=== PATIENT | male | born 1955 | race Caucasian/White ===

== ENCOUNTER 2023-03-06 09:57 | Outpatient (REF) | payer MEDICARE, SELFPAY ==
[2023-03-06 12:19] LABS: Anion Gap 13.4; BUN Creatinine Ratio 34.9; Calcium 9.3 mg/dL (8.5-10.1); Chloride 102 mmol/L (98-107); Estimated GFR (African America >60 (>=60); Estimated GFR (Non-African Ame 57 (>=60); Glucose 154 mg/dL (74-106); Potassium 4.4 mmol/L (3.5-5.1); Sodium 138 mmol/L (136-145)
[2023-03-06 12:40] LABS: Estimated Average Glucose 171 mg/dL; Glycohemoglobin A1C 7.6 % (4.5-6.2)
== END 2023-03-06 09:58 ==
LOC: LAB 09:57
PROVIDERS: PCP Family Medicine; Visit Provider Family Medicine
DX: E11.43 Type 2 diabetes mellitus with diabetic autonomic (poly)neuropathy (principal); I50.43 Acute on chronic combined systolic (congestive) and diastolic (congestive) heart failure; I11.0 Hypertensive heart disease with heart failure; R00.1 Bradycardia, unspecified
CPT/HCPCS: 36415; 80048; 83036

== ENCOUNTER 2023-11-13 02:08 | Outpatient (REF) | payer MEDICARE, MEDICAID, SELFPAY ==
[2023-11-13 09:42] LABS: Basophils Percent Auto 0.5 % (0.2-2.0); Eosinophils Absolute Auto 0.3 10^3/uL (0.0-0.7); Eosinophils Percent Auto 5.4 % (0.9-7.0); Hematocrit 34.3 % (42.0-54.0); Hemoglobin 10.5 g/dL (14.0-18.0); Immature Granulocytes Abs Auto 0.02 10^3/uL (0.00-0.03); Immature Granulocytes Pct Auto 0.3 % (0.0-0.5); Lymphocytes Absolute Auto 2.4 10^3/uL (1.2-3.8); Lymphocytes Percent Auto 39.2 % (20.5-60.0); Mean Corpuscular HGB Conc 30.6 g/dL (29.9-35.2); Mean Corpuscular Hemoglobin 27.7 pg (25.9-34.0); Mean Corpuscular Volume 90.5 fL (80.0-94.0); Monocytes Absolute Auto 0.5 10^3/uL (0.3-0.8); Neutrophils Absolute Auto 2.9 10^3/uL (1.4-6.5); Neutrophils Percent Auto 46.6 % (43.0-75.0); Platelet Count 232 10^3/uL (150-450); Red Blood Count 3.79 10^6/uL (4.70-6.10); Red Cell Distribution Width 13.6 % (11.0-15.0); White Blood Count 6.1 10^3/uL (4.0-11.0)
[2023-11-13 09:58] LABS: Estimated Average Glucose 192 mg/dL; Glycohemoglobin A1C 8.3 % (4.5-6.2)
[2023-11-13 10:18] LABS: Chol HDL Ratio 2.5; Cholesterol 145 mg/dL (<=200); Estimated GFR (African America >60 (>=60); Estimated GFR (Non-African Ame >60 (>=60); HDL Cholesterol 59 mg/dL (40-60); LDL Cholesterol Calculated 70.6 mg/dL; Triglycerides 77 mg/dL (<=150); VLDL CHOLESTEROL 15.4 mg/dL
== END 2023-11-13 02:09 | disposition home or self-care (01) ==
LOC: LAB 02:08
PROVIDERS: PCP Family Medicine; Visit Provider Family Medicine
DX: Z51.81 Encounter for therapeutic drug level monitoring (principal)
CPT/HCPCS: 36415; 80061; 82565; 83036; 85025

== ENCOUNTER 2023-11-25 02:20 | Outpatient (REF) | payer MEDICARE, MEDICAID, SELFPAY ==
--- OUTSIDE RECORDS SUMMARY | 2023-11-25 02:26 | XMS_ITS | CCD ---
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 Painter Structural Steel Name Role Phone Bernie Guerra Primary Care Provider JERI LION Admitting Unavailable ROSALIE WILDER Referring Unavailable LEMUEL DIAZ Consulting Unavailable BERNIE GUERRA Primary Care Unavailable SHAWN HEALY Attending Unavailable CHARLENE MEZA Consulting Unavailable JERI LION Consulting Unavailable MIGUEL HINSON Consulting Unavailable Ana Norris Admitting Unavailable Ana Norris Attending Unavailable Bernie Guerra Primary Care Unavailable MD Bernie Guerra Primary Care Provider HENOK Norris Attending Provider [phone] Ana Norris Unavailable HERMILO THORNE Primary Care Physician Sydney Alexander Unavailable Unavailable Chris Ibrahim Unavailable Unavailable FIDE .DR RAE Consulting Unavailable FIDE ., DR RAE Lau Attending Unavailable FIDE .DR RAE Admitting Unavailable DR BERNIE GUERRA Primary Care Unavailable DR MARIBEL PARISH Consulting UnavailDR BERNIE Ken V Consulting Unavailable SHAIKH Maki LIU Consulting Unavailable ABEBE .NAKITA Attending Unavailable ABEBE .NAKITA Admitting Unavailable DR RAE SARMIENTO Consulting Unavailable MATI, DR AKHTAR Primary Care Unavailable WILVER MARTINEZ Consulting Unavailable BERNIE JC Consulting Unavailable SISTER, KEVIN Consulting Unavailable ABEBE .NAKITA Consulting Unavailable DIAB ., CELESTE Consulting Unavailable MATI, DR AKHTAR Consulting Unavailable MATI, DR AKHTAR Primary Care Unavailable MATI, DR AKHTAR Attending Unavailable MATI, DR AKHTAR Admitting Unavailable MATI, DR AKHTAR Consulting Unavailable MATI, DR AKHTAR Primary Care Unavailable MATI, DR AKHTAR Attending Unavailable MATI, DR AKHTAR Admitting Unavailable PAY ., DR CORDERO Attending Unavailable PAY ., DR CORDERO Admitting Unavailable PAY ., DR CORDERO Consulting Unavailable CHARLIE, DR GIBBS Primary Care Unavailable HEIDI, LILIA Consulting Unavailable CARLITOS, JULIAN Consulting Unavailable LUJAN, ERIC Consulting Unavailable CHACONFRANCES LEAVITT Consulting Unavailable MAREN, DR LILIA Valdez Consulting Unavailable FARZANEH ., LOULOU Attending Unavailable FARZANEH ., LOULOU Admitting Unavailable MATI, DR AKHTAR Primary Care Unavailable DARY, UMESH Consulting Unavailable FARZANEH ., LOULOU Consulting Unavailable OMER, SIMA Consulting Unavailable HETERESA, JAJA Consulting Unavailable CHARLIE, DR GIBBS Primary Care Unavailable HOY ., DR BOYD Admitting Unavailable HOY ., DR BOYD Consulting Unavailable HOY ., DR BOYD Attending Unavailable PAY ., DR CORDERO Consulting Unavailable CARLITOS, JULIAN Consulting Unavailable CRUZ, SANDRA Consulting Unavailable NADEEM, SANDRA Consulting Unavailable MAREN, DR LILIA Valdez Consulting Unavailable NADERER, DR CHRISTIE Arteaga Attending Unavailable NADERER, DR CHRISTIE Arteaga Admitting Unavailable MATI, DR AKHTAR Primary Care Unavailable NADERER, DR CHRISTIE Arteaga Consulting Unavailable PAY ., DR CORDERO Consulting Unavailable GRECHNY ., KAYLEE LAU Consulting UnavailSARAH Pinto Consulting Unavailable SHANNON, KIKI Consulting Unavailable AHDOOT, CANDI Consulting Unavailable LUJAN, ERIC Consulting Unavailable FRIDA JACK Consulting Unavailable OROZCO, [place] Consulting Unavailable CHAPO, VALE Consulting Unavailable [place], Claireen M Unavailable Bernie Guerra Attending Unavailable Bernie Guerra Primary Care Unavailable Bernie Guerra Admitting Unavailable Charlie, Bernie Arteaga Primary Care Unavailable Bernie Guerra Attending Unavailable Bernie Guerra Admitting Unavailable Bernie Guerra Primary Care Unavailable Hue Monet Attending Unavailable Hue Monet Admitting Unavailable Bernie Guerra Attending Unavailable Bernie Guerra Primary Care Unavailable Bernie Guerra Admitting Unavailable Bernie Guerra Primary Care Unavailable Mohinder Orozco Attending Unavailable Mohinder Orozco Admitting Unavailable Charlie, Bernie Arteaga Primary Care Unavailable Orozco, Mohinder Attending Unavailable Orozco, Mohinder Admitting Unavailable Charlie, Mario Primary Care Unavailable Fender, Reshma Attending Unavailable Fender, Reshma Admitting Unavailable Charlie, Mario Attending Unavailable Charlie, Mario Primary Care Unavailable Monet, Hue Mcbride Attending Unavailable MonetHue diallo Admitting Unavailable Charlie, Mario Primary Care Unavailable Charlie, Mario Attending Unavailable Charlie, Mario Primary Care Unavailable Charlie, Mario Attending Unavailable Charlie, Mario Primary Care Unavailable Charlie, Mario Primary Care Unavailable Charlie, Mario Attending Unavailable Wills, Kamran Attending Unavailable Wills, Kamran Admitting Unavailable Charlie, Mario Primary Care Unavailable Charlie, Bernie Arteaga Primary Care Unavailable Rajabbik, Mhd Hashem Attending Unavailable Rajabbik, Mhd Hashem Admitting Unavailable Charlie, Bernie Arteaga Primary Care Unavailable Rajabbik, Mhd Hashem Attending Unavailable Rajabbik, Mhd Hashem Admitting Unavailable Mati, Dr. Hermilo Greco [facility] Unavaila ble Martina, Dr. Geovani Posada Attending Unavailab le Mati, Dr. Hermilo Greco [facility] Unavaila ble Mack, Dr. Geovani Posada Attending Unavailab le Martina, Dr. Geovani Posada Referring Unavailab le [place], Dr. Hermilo Greco [facility] Unavaila ble Mack, Dr. Geovani Posada Admitting Unavailab le Mack, Dr. Geovani Posada Attending Unavailab le Mati Hermilo LEMONS [facility] Provider Hermilo Thorne MD [facility] Provider Geovani Mack MD Unavailable [phone] STANG, DRAPERY MAKER Bushra L Attending Unavailable STANG, DRAPERY MAKER Bushra L Admitting Unavailable NONE, XXXX Referring Unavailable STANG, DRAPERY MAKER Bushra L Attending Unavailable STANG, DRAPERY MAKER Bushra L Admitting Unavailable NONE, XXXX Referring Unavailable STANG, DRAPERY MAKER Bushra L Attending Unavailable STANG, DRAPERY MAKER Bushra L Admitting Unavailable NONE, XXXX Referring Unavailable Jaja Lee Attending Unavaila ble NONE, XXXX Referring Unavailable Jaja Lee Attending Unavaila ble NONE, XXXX Referring Unavailable John Lyn Admitting Unavailable Lilia Castanon Consulting Unavailable Stephan QUINN Attending Unavailable Cedaredge, Lilia Consulting Unavailable Cedaredge, Lilia Consulting Unavailable Cedaredge, Lilia Consulting Unavailable Cedaredge, Lilia Consulting Unavailable Cedaredge, Lilia Consulting Unavailable Cedaredge, Lilia Consulting Unavailable Cedaredge, Lilia Consulting Unavailable Cedaredge, Lilia Consulting Unavailable Eboni, John S Attending Unavailable Eboni, John S Admitting Unavailable Mahesh LEMA Consulting Unavailable Mahesh LEMA Consulting Unavailable Mahesh LEMA Consulting Unavailable Mitchel MEDINA Attending Unavailable Mahesh LEMA Consulting Unavailable Isaías FLEMING Admitting Unavailable TOREY, Mahesh Johns Consulting Unavailable Mahesh LEMA Consulting Unavailable Eboni, John S Attending Unavailable Ayaan NAQVI Admitting Unavailable Cedaredge, Lilia Consulting Unavailable Cedaredge, Lilia Consulting Unavailable Cedaredge, Lilia Consulting Unavailable Cedaredge, Lilia Consulting Unavailable Cedaredge, Lilia Consulting Unavailable Cedaredge, Lilia Consulting Unavailable Cedaredge, Lilia Consulting Unavailable Cedaredge, Lilia Consulting Unavailable Cedaredge, Lilia Consulting Unavailable Tita Albright Attending Unavailable Harjit Doan Admitting Unavailable Jered Chavis Attending Unavailable GEOVANI MACK Attending Unavailable Mati, Dr. Hermilo Greco Primary Care Unavaila GEOVANI Parmar Attending Unavailable JAJA LEE Referring Unavailable Ti[place], Dr. Hermilo Greco Primary Care UnavailNelda Joyce RN Unavailable Unavailable MARTINA GEOVANI N Attending Unavailable HERMILO THORNE Primary Care Unavailable MARTINA GEOVANI N Attending Unavailable MATIHERMILO Primary Care Unavailable MACK, GEOVANI N Referring Unavailable MACK, GEOVANI N Attending Unavailable MATIHERMILO Primary Care Unavailable Bernie Guerra MD Primary Care Provider ESTHER LÓPEZ Referring Unavailable MATIHERMILO Primary Care Unavailable MACK, GEOVANI N Admitting Unavailable MARTINA GEOVANI N Attending Unavailable ESTHER LÓPEZ Referring Unavailable MATIHERMILO Primary Care Unavailable MACK, GEOVANI N Referring Unavailable MATIHERMILO Primary Care Unavailable MARTINA GEOVANI N Referring Unavailable MATIHERMILO Primary Care Unavailable ESTHER LÓPEZ Referring Unavailable MATIHERMILO Primary Care Unavailable ESTHER LÓPEZ Referring Unavailable MATI, RUGEN MABALAY Primary Care Unavailable MARIBELESTHER Referring Unavailable MATI, RUGEN MABALAY Primary Care Unavailable MACK, GEOVANI N Referring Unavailable MATI, RUGEN MABALAY Primary Care Unavailable MACK, GEOVANI N Referring Unavailable MATI, RUGEN MABALAY Primary Care Unavailable MACK, GEOVANI N Referring Unavailable MATI, RUGEN MABALAY Primary Care Unavailable MACK, GEOVANI N Referring Unavailable MATI, RUGEN MABALAY Primary Care Unavailable MACK, GEOVANI N Referring Unavailable MATI, RUGEN MABALAY Primary Care Unavailable MACK, GEOVANI N Referring Unavailable MATI, RUGEN MABALAY Primary Care Unavailable MACK, GEOVANI N Referring Unavailable MATI, RUGEN MABALAY Primary Care Unavailable MACK, GEOVANI N Referring Unavailable MATI, RUGEN MABALAY Primary Care Unavailable MACK, GEOVANI N Referring Unavailable MATI, RUGEN MABALAY Primary Care Unavailable MACK, GEOVANI N Referring Unavailable MATI, RUGEN MABALAY Primary Care Unavailable MACK, GEOVANI N Referring Unavailable MATI, RUGEN MABALAY Primary Care Unavailable MACK, GEOVANI N Referring Unavailable MATI, RUGEN MABALAY Primary Care Unavailable MACK, GEOVANI N Referring Unavailable MATI, RUGEN MABALAY Primary Care Unavailable MACK, GEOVANI N Referring Unavailable MATI, RUGEN MABALAY Primary Care Unavailable MACK, GEOVANI N Referring Unavailable MATI, RUGEN MABALAY Primary Care Unavailable MACK, GEOVANI N Referring Unavailable MATI, RUGEN MABALAY Primary Care Unavailable MACK, GEOVANI N Referring Unavailable MATI, RUGEN MABALAY Primary Care Unavailable Allergies Allergy Classification Reported Allergen(s) Allergy Type Date of Onset Reaction(s) Facility (4 sources) Penicillins; Translations: [penicillins] Propensity to adverse reactions to drug 8 [place], [place] (20 sources) HYDROmorphone; Translations: [hydromorphone] Drug Allergy 2 Unknown (qualifier value), Unknown [facility] (20 sources) Morphine; Translations: [morphine] Drug Allergy 2 Unknown (qualifier value), Unknown [facility] (9 sources) Penicillin; Translations: [penicillin] Drug Allergy 2 Unknown (qualifier value) [facility] (3 sources) HYDROmorphone; Translations: [Dilaudid] Drug Allergy 2 [facility] (1 source) Morphine Drug Allergy 2 [facility] (1 source) Penicillins; Translations: [Penicillins] Allergy to drug (finding) [place] [address] DO Work Phone: (1 source) Morphine Derivatives; Translations: [Morphine Derivatives] Allergy to drug (finding) [place] [address] DO Work Phone: (15 sources) Penicillins Drug Intolerance 8 [facility] Work Phone: (1 source) Penicillins Drug Intolerance 8 [facility] (1 source) ALLERGIES NOT ON FILE; Translations: [ALLERGIES NOT ON FILE] Propensity to adverse reactions (disorder) [facility] Medications Current Medications Medication Drug Class(es) Dates Sig (Normalized) Sig (Original) acetaminophen 325 mg oral tablet (14 sources) Start: 12-25-2022 acetaminophen (Tylenol) 325 MG tablet every 4 (four) hours. 0 12/25/2022 Active Start: 12-25-2022 take [address] [facility] every six hours as needed for pain acetaminophen 325 mg Tab 650 mg = 2 tab(s), Oral, q6hr, PRN Pain, Refills(s) 0 Start Date: 12/25/22 Status: Ordered Start: 09-08-2019 acetaminophen (TYLENOL) tablet 1,000 mg Acetaminophen / oxyCODONE (1 source) Opioid Agonist oxyCODONE-Acetam inophen Active 200 actuat albuterol 0.09 mg/actuat metered dose inhaler (2 sources) beta2-Adrenerg ic Agonist Start: 2018 take 2 puff(s) by inhalation every six hours as needed for wheezing albuterol sulfate HFA 108 (90 Base) MCG/ACT inhaler Inhale 2 puffs into the lungs every 6 hours as needed for Wheezing 1 Inhaler 3 09/10/2019 Active Start: 09-07-2019 albuterol sulf ate HFA 108 (90 Base) MCG/ACT inhaler 2 puff apixaban 5 mg oral tablet (19 sources) Factor Xa Inhibitor Start: 09-16-2023 End: 09-15-2024 take 1 tablet by mouth twice daily apixaban (Eliquis) 5 mg tablet Indications: Anticoagulation management encounter Take 1 tablet (5 mg) by mouth 2 times a day. 180 tablet 3 09/16/2023 09/15/2024 Active Start: 12-21-2022 take 1 tablet by nadya th twice daily Eliquis 5 mg oral tablet 5 mg = 1 tab(s), Oral, BID, Refills(s) 0 Start Date: 12/21/22 Status: Ordered Start: 09-09-2019 take 5 mg by mouth twice daily 5 mg, Oral, 2 TIMES DAILY, First dose on Thu09/09/19 at 1245 ANTICOAGULANT ascorbic acid 500 mg oral tablet (2 sources) Vitamin C Start: 09-11-2019 take 1 tablet by mouth once daily vitamin C (VITAMIN C) 500 MG tablet Take 1 tablet by mouth daily 30 tablet 3 09/11/2019 Active Start: 09-07-2019 vitamin C (ASC ORBIC ACID) tablet 500 mg aspirin 81 mg delayed release oral tablet (20 sources) Platelet Aggregation Inhibitor, Nonsteroidal Anti-inflammatory Drug Start: 12-25-2022 aspirin 81 MG EC tablet Take 81 mg by mouth. 0 12/25/2022 Active Aspirin Low Dose 81 MG TABS TAKE 1 TABLET DAILY. Quantity: 0 Refills: 0 Ordered: 24-Mar-2023 DO Active Basaglar KwikPen (1 source) Basaglar KwikPen Active carvedilol 3.125 mg oral tablet (2 sources) alpha-Adrenergic Celsa, beta-Adrenergic Celsa Start: 12-25-2022 take 1 tablet by mouth twice daily carvedilol 3.125 mg Tab 3.125 mg = 1 tab(s), Oral, BID, Refills(s) 0 Start Date: 12/25/22 Status: Ordered take 1 tablet by nadya th every twelve hours Carvedilol 6.25 MG 1 tablet with food Orally Twice a day Active cetirizine hydrochloride 10 mg oral tablet (15 sources) Histamine-1 Receptor Antagonist take 1 tablet by mouth once daily cetirizine (ZyrTEC) 10 mg tablet Take 1 tablet (10 mg) by mouth once daily. 0 Active take 1 capsule by mouth once cet irizine (ZyrTEC) 10 mg capsule Take 1 capsule (10 mg) by mouth 1 time. 0 Active cholecalciferol 0.025 mg oral tablet (20 sources) Vitamin D Start: 01-24-2023 cholecalcifero l (Vitamin D-3) 25 MCG (1000 UT) tablet Take 25 mcg by mouth. 0 01/24/2023 Active Start: 01-24-2023 take 1 tablet by nadya th once daily cholecalciferol 1000 intl units (25 mcg) oral tablet 25 mcg = 1 tab(s), Oral, Daily, # 30 tab(s), Refills(s) 0 Start Date: 01/24/23 Status: Ordered Clavicle Strap/Figure-8 Large - (1 source) Start: 10-01-2022 Clavicle Strap/Figure-8 Large - as directed Sep, Active clindamycin 150 mg oral capsule (3 sources) Lincosamide Antibacterial Start: 09-10-2019 End: 09-24-2019 clindamycin (CLEOCIN) capsule 150 mg Start: 09-07-2019 End: 09-10-2019 clindamycin (CLEOCIN) 900 mg in dextrose 5 % 50 mL IVPB clopidogrel 75 mg oral tablet (4 sources) P2Y12 Platelet Inhibitor Start: 01-17-2023 take 1 tablet by mouth once daily clopidogrel 75 mg Tab 75 mg = 1 tab(s), Oral, Daily, Refills(s) 0 Start Date: 01/17/23 Status: Ordered Plavix Active cyclobenzaprine hydrochloride 10 mg oral tablet (3 sources) Muscle Relaxant Start: 09-09-2019 take 10 mg by mouth three times daily as needed for muscle spasms 10 mg, Oral, 3 TIMES DAILY PRN, Muscle spasms, Starting Thu09/09/19 at 2347 Cyclobenzaprine HCl Active diphenhydrAMINE hydrochloride 25 mg oral tablet (1 source) Histamine-1 Receptor Antagonist End: 10-21-2023 take 1 tablet by mouth every six hours as needed diphenhydrAMINE (Sominex) 25 mg tablet Take 1 tablet (25 mg) by mouth every 6 hours if needed for itching. 0 10/21/2023 Discontinued (Med List Cleanup) docusate sodium 100 mg oral capsule (17 sources) take 1 capsule by mouth in the morning docusate sodium (Colace) 100 MG capsule Take 100 mg by mouth in the morning and 100 mg before bedtime. 0 Active docusate sodium 50 mg / sennosides, alf 8.6 mg oral tablet (1 source) Start: 09-09-2019 sennosides-docusate sodium (SENOKOT-S) 8.6-50 MG tablet 2 tablet dofetilide 0.125 mg oral capsule (6 sources) Antiarrhythmic Start: 10-12-2023 End: 04-09-2024 take 1 capsule by mouth every twelve hours dofetilide (Tikosyn) 125 mcg capsule Indications: Typical atrial flutter (CMS/HCC) Take 1 capsule (125 mcg) by mouth every 12 hours. 60 capsule 5 10/12/2023 04/09/2024 Active donepezil hydrochloride 10 mg oral tablet (1 source) Start: 02-11-2023 take 1 tablet by mouth once daily at bedtime Aricept 10 mg Tab 10 mg = 1 tab(s), Oral, Once a day (at bedtime), # 30 tab(s), Refills(s) 0 Start Date: 02/11/23 Status: Ordered 0.5 ml dulaglutide 1.5 mg/ml auto-injector (6 sources) GLP-1 Receptor Agonist Start: 12-21-2022 Trulicity Pen 0.75 mg/0.5 mL subcutaneous solution 0.75 mg, SubCutaneous, Thursday, Refills(s) 0 Start Date: 12/21/22 Status: Ordered folic acid 1 mg oral tablet (2 sources) Start: 09-11-2019 take 1 tablet by mouth once daily folic acid (FOLVITE) 1 MG tablet Take 1 tablet by mouth daily 30 tablet 3 09/11/2019 Active Start: 09-10-2019 folic acid (FO LVITE) tablet 1 mg furosemide 20 mg oral tablet (20 sources) Loop Diuretic Start: 12-21-2022 furosemide (Lasix) 20 MG tablet Take 20 mg by mouth. 0 12/21/2022 Active gabapentin 100 mg oral capsule (2 sources) Anti-epileptic Agent Start: 12-21-2022 take 2 capsules by mouth three times daily gabapentin 100 mg Cap 200 mg = 2 cap(s), Oral, TID, Refills(s) 0 Start Date: 12/21/22 Status: Ordered Gabapentin Activ e glucagon (rdna) 1 mg injection (3 sources) Antihypoglycemic Agent Start: 09-06-2019 glucago n (rDNA) injection 1 mg 1000 ml glucose 500 mg/ml injection (9 sources) Start: 09-06-2019 dextrose 5 % s olution Start: 09-06-2019 glucose (GLUTO SE) 40 % oral gel 15 g Start: 09-06-2019 dextrose 50 % IV solution glyBURIDE (2 sources) Sulfonylurea Glyburide 1 tab Oral Active take 2 tablets by mo uth twice daily at mealtime glyBURIDE (DIABETA) 5 MG tablet Take 10 mg by mouth 2 times daily (with meals) 0 Active hydroCHLOROthiazide 25 mg / lisinopril 20 mg oral tablet (2 sources) Thiazide Diuretic, Angiotensin Converting Enzyme Inhibitor Start: 09-10-2019 take 1 tablet by mouth once daily 1 tablet, Oral, DAILY, First dose on 09/10/19 at 0900 sodium hypochlorite 1.25 mg/ml topical solution (2 sources) Start: 09-07-2019 sodium hypochlorite (DAKINS) 0.125 % external solution Start: 09-06-2019 End: 09-07-2019 sodium hypochlorite (DAKINS) 0.25 % external solution Ibuprofen (1 source) Nonsteroidal Anti-inflammatory Drug Motrin IB Active Insulin Glargine (6 sources) Insulin Analog Start: 12-21-2022 insulin glargine 35, SubCutaneous, Daily, HOLD this until glucose levels warrant basal insulin use, Refills(s) 0 Start Date: 12/21/22 Status: Ordered Start: 09-10-2019 insulin glargi ne (LANTUS) injection vial 20 Units Start: 09-08-2019 End: 09-09-2019 insulin glargine (LANTUS) in jection vial 10 Units Start: 09-06-2019 End: 09-07-2019 insulin glargine (LANTUS) in jection vial 50 Units insulin glargine (BASAGLAR KWIKPEN) 100 UNIT/ML injection pen Inject 20 Units into the skin every morning 0 Active End: 09-10-2019 insulin glargine (BASAGLAR K MAY) 100 UNIT/ML injection pen Inject 50 Units into the skin nightly 0 09/10/2019 Discontinued (Stop Taking at Discharge) insulin glargine,hum.rec.anl og (BASAGLAR KWIKPEN U-100 INSULIN SUBQ) (15 sources) inject 44 [IU] by subcutaneous injection once daily at bedtime insulin glargine,hum.rec.anlog (BASAGLAR KWIKPEN U-100 INSULIN SUBQ) Inject 44 Units under the skin once daily at bedtime. Take as directed per insulin instructions. 0 Active insulin glargine ,hum.rec.anlog (BASAGLAR KWIKPEN U-100 INSULIN SUBQ) Inject under the skin. Take as directed per insulin instructions. 0 Active 24 hr isosorbide mononitrate 60 mg extended release oral tablet (1 source) Nitrate Vasodilator take 2 tablets by mouth once daily, then take 1 tablet by mouth isosorbide mononitrate (IMDUR) 60 MG extended release tablet Take 120 mg by mouth daily 0 Active isosorbide dinitrate 40 mg oral tablet (1 source) Nitrate Vasodilator take 1 tablet by mouth every twelve hours Isosorbide Dinitrate 40 MG 1 tablet Orally Twice a day Active levETIRAcetam 750 mg oral tablet (20 sources) Start: 08-27-20 take 1 tablet by mouth twice daily levETIRAcetam (Keppra) 750 mg tablet Take 1 tablet (750 mg) by mouth 2 times a day. 0 08/27/2023 Active Start: 02-13-2023 levETIRAcetam 750 MG Tablet Disintegrating Soluble Take 750 mg by mouth. 0 02/13/2023 Active Start: 12-25-2022 take 3 tablets by mo [facility] twice daily Keppra 250 mg Tab 750 mg = 3 tab(s), Oral, BID, Refills(s) 0 Start Date: 12/25/22 Status: Ordered take 1 tablet by [facility] twice daily Keppra 750 MG Oral Tablet TAKE 1 TABLET TWICE DAILY. Quantity: 0 Refills: 0 Ordered: 24-Mar-2023 DO Active levoFLOXacin 500 mg oral tablet (2 sources) Quinolone Antimicrobial Start: 09-10-2019 End: 09-17-2019 take 1 tablet by mouth once daily levofloxacin (LEVAQUIN) 500 MG tablet Take 1 tablet by mouth daily for 7 days 7 tablet 0 09/10/2019 09/17/2019 Active Start: 09-07-2019 End: 09-10-2019 levofloxacin (LEVAQUIN) 750 MG/150ML infusion 750 mg linagliptin 5 mg oral tablet (17 sources) Dipeptidyl Peptidase 4 Inhibitor take 1 tablet by mouth in the morning linaGLIPtin (Tradjenta) 5 MG tablet Take 5 mg by mouth in the morning. 0 Active loratadine 10 mg oral tablet (15 sources) Start: 3 End: 3 loratadine (Claritin) 10 MG tablet Take 10 mg by mouth. 0 02/13/2023 Active magnesium hydroxide 80 mg/ml oral suspension (1 source) Start: 9 magnesium hydroxide (MILK OF MAGNESIA) 400 MG/5ML suspension 30 mL magnesium oxide 400 mg oral tablet (20 sources) Start: 3 magnesium oxide (Mag-Ox) 400 MG tablet Take 400 mg by mouth. 0 01/24/2023 Active Megestrol (1 source) Progestin Megestrol Acetat e Active modified 24 hr metFORMIN hydrochloride 1000 mg extended release oral tablet (20 sources) Biguanide Start: 3 take 1 tablet by mouth twice daily at mealtime metFORMIN, MOD, (Glumetza) 1,000 mg 24 hr tablet Take 1 tablet (1,000 mg) by mouth 2 times a day with meals. 0 01/26/2023 Active Start: 01-24-2023 take 1 tablet by nadya twice daily metformin 1000 mg oral tablet, extended release 1,000 mg = 1 tab(s), Oral, BID, # 60 tab(s), Refills(s) 0 Start Date: 01/24/23 Status: Ordered Start: 08-04-2022 metFORMIN (Glu cophage) 1000 MG tablet Take 500 mg by mouth in the morning and 500 mg in the evening. Take with meals. 0 08/04/2022 Active take 2 tablets by mo [facility] twice daily at mealtime metFORMIN XR (Glucophage-XR) 500 mg 24 hr tablet Take 2 tablets (1,000 mg) by mouth 2 times a day with meals. Do not crush, chew, or split. 0 Active take 2 tablets by mo ut twice daily metFORMIN HCl ER 500 MG Oral Tablet Extended Release 24 Hour TAKE 2 TABLETS TWICE DAILY Quantity: 0 Refills: 0 Ordered: 24-Mar-2023 DO Active Metformin 1 tab Oral Active take 1 tablet by nadya twice daily at mealtime metFORMIN (GLUCOPHAGE) 1000 MG tablet Take 1,000 mg by mouth 2 times daily (with meals) 0 Active metoprolol tartrate 25 mg oral tablet (17 sources) beta-Adrenergic Celsa Start: 09-16-2023 End: 09-15-2024 take 1 tablet by mouth twice daily metoprolol tartrate (Lopressor) 25 mg tablet Indications: Longstanding persistent atrial fibrillation (CMS/HCC) Take 1 tablet (25 mg) by mouth 2 times a day. 60 tablet 11 09/16/2023 09/15/2024 Active Start: 09-10-2019 take 25 mg by mouth twice mary y 25 mg, Oral, 2 TIMES DAILY, First dose on 09/10/19 at 0015 midodrine hydrochloride 5 mg oral tablet (19 sources) alpha-Adrenergic Agonist Start: 02-14-2023 midod rine (Proamatine) 5 MG tablet Take 5 mg by mouth. 0 02/14/2023 Active Start: 02-14-2023 take 1 tablet by nadya th twice daily midodrine 5 mg Tab 5 mg = 1 tab(s), Oral, BID, # 60 tab(s), Refills(s) 0 Start Date: 02/14/23 Status: Ordered mirtazapine 30 mg oral tablet (17 sources) Start: 09-10-2023 take 1 tablet by mouth once daily at bedtime mirtazapine (Remeron) 30 mg tablet Take 1 tablet (30 mg) by mouth once daily at bedtime. 0 09/10/2023 Active take 1 tablet by mouth at bedtim e mirtazapine (Remeron) 15 MG tablet Take 15 mg by mouth at bedtime. 0 Active take 1 tablet by nadya th once daily in the evening Remeron 30 MG Oral Tablet TAKE 1 TABLET DAILY IN THE EVENING. Quantity: 0 Refills: 0 Ordered: 24-Mar-2023 DO Active Multiple Vitamins-Minerals (THERAPEUTIC MULTIVITAMIN-MINERALS) tablet (1 source) Start: 09-11-2019 End: 10-11-2019 take 1 tablet by mouth once daily Multiple Vitamins-Minerals (THERAPEUTIC MULTIVITAMIN-MINERALS) tablet Take 1 tablet by mouth daily 30 tablet 2 09/11/2019 10/11/2019 Active nitroglycerin 0.4 mg sublingual tablet (16 sources) Nitrate Vasodilator Start: 03-29-2021 nitroglycerin (Nitrostat) 0.[address] 1 tablet (0.4 mg) under the tongue every 5 minutes if needed for chest pain. 0 03/29/2021 Active Nitroglycerin 0. 3 MG Sublingual Active omeprazole 20 mg delayed release oral capsule (20 sources) Proton Pump Inhibitor Start: 06-21-2018 omeprazole (PriLOSEC ) [address] capsule Take 20 mg by mouth. 0 12/21/2022 Active 2 ml ondansetron 2 mg/ml injection (1 source) Serotonin-3 Receptor Antagonist Start: 09-06-2019 ondansetron (ZOFRAN) injection 4 mg oxyCODONE hydrochloride 5 mg oral tablet (1 source) Opioid Agonist Start: 09-08-2019 oxyCODONE (ROXICODONE) immediate release tablet 5 mg polyethylene glycol [id number] mg powder for oral solution (19 sources) Osmotic Laxative Start: 08-20-2022 MiraLax 17 GM /SCOOP powder 1 (one) time each day at the same time. 0 08/20/2022 Active Start: 09-09-2019 End: 10-10-2019 take 17 g by mouth once daily polyethylene glycol (GLY COLAX) powder Take 17 g by mouth daily 1530 g 1 09/10/2019 10/10/2019 Active pravastatin sodium 40 mg oral tablet (20 sources) HMG-CoA Reductase Inhibitor Start: 12-21-2022 take 1 tablet by mouth once daily at bedtime pravastatin 40 mg Tab 40 mg = 1 tab(s), Oral, Once a day (at bedtime), Refills(s) 0 Start Date: 12/21/22 Status: Ordered predniSONE 10 mg oral tablet (3 sources) Start: 10-21-2023 End: 10-27-2023 take 1 tablet by mouth once daily predniSONE (Deltasone) 10 mg tablet Take 1 tablet (10 mg) by mouth once daily. For 7 days 0 10/21/2023 10/27/2023 Active sennosides, JAIL (1 source) Senokot Active sodium chloride 0.154 meq/ml irrigation solution (5 sources) Start: 09-07-2019 sodium chlorid e 0.9 % irrigation 1,000 mL Start: 09-07-2019 End: 09-07-2019 sodium chloride 0.9 % irriga tion Start: 09-06-2019 sodium chlorid e flush 0.9 % injection 10 mL Start: 09-06-2019 End: 09-10-2019 0.9 % sodium chloride infusi on therapeutic multivitamin-minerals 1 tablet (1 source) Start: 09-07-2019 therapeutic multivitamin-minerals 1 tablet thiamine 100 mg oral tablet (2 sources) Start: 09-11-2019 take 1 tablet by mouth once daily vitamin B-1 100 MG tablet Take 1 tablet by mouth daily 30 tablet 3 09/11/2019 Active Start: 09-10-2019 vitamin B-1 (T HIAMINE) tablet 100 mg zinc sulfate 220 mg oral capsule (2 sources) Start: 09-11-2019 take 1 capsule by mouth once daily zinc sulfate (ZINCATE) 220 (50 Zn) MG capsule Take 1 capsule by mouth daily 30 capsule 3 09/11/2019 Active Start: 09-07-2019 zinc sulfate ( ZINCATE) capsule 220 mg Completed/Discontinued Medications Medication Drug Class(es) Dates Sig (Normalized) Sig (Original) dilTIAZem hydrochloride 60 mg oral tablet (6 sources) Calcium Channel Celsa Start: 01-20-2023 End: 01-26-2023 Cardizem 60 mg Tab 30 mg = 0.5 tab(s), Tab, Oral, Start date 01/26/23 9:00:00 EDT, 01/22/23 9:51:00 EDT Start Date: 01/26/23 Stop Date: 01/26/23 Status: Completed 2 ml fentaNYL 0.05 mg/ml injection (2 sources) Opioid Agonist Start: 09-06-2019 End: 09-09-2019 fentaNYL (SUBLIMAZE) injection 50 mcg 1 ml heparin sodium, porcine 5000 unt/ml prefilled syringe (1 source) Unfractionated Heparin, Anti-coagulant Start: 09-07-2019 End: 09-08-2019 heparin (porcine) injection 5,000 Units Insulin Lispro (13 sources) Insulin Analog Start: 01-26-2023 End: 01-26-2023 Insulin Lispro Sliding Scale 0-10 Units, Injection-Insuli n, SubCutaneous, Start date 01/26/23 11:30:00 EDT Start Date: 01/26/23 Stop Date: 01/26/23 Status: Completed Start: 01-26-2023 End: 01-26-2023 Insulin Lispro Sliding Scale 0-10 Units, Injection-Insulin, SubCutaneous, Start date 01/26/23 7:30:00 EDT Start Date: 01/26/23 Stop Date: 01/26/23 Status: Completed Start: 01-24-2023 End: 01-24-2023 Insulin Lispro Sliding Scale 0-10 Units, Injection-Insulin, SubCutaneous, Start date 01/24/23 16:30:00 EDT Start Date: 01/24/23 Stop Date: 01/24/23 Status: Completed Start: 12-25-2022 insulin lispro 0-10 Units, SubCutaneous, QIDACHS, Refills(s) 0 Start Date: 12/25/22 Status: Ordered Start: 12-25-2022 End: 12-25-2022 Insulin Lispro Sliding Scale 0-10 Units, Injection-Insulin, SubCutaneous, Start date 12/25/22 11:30:00 EDT Start Date: 12/25/22 Stop Date: 12/25/22 Status: Completed Start: 12-25-2022 End: 12-25-2022 Insulin Lispro Sliding Scale 0-10 Units, Injection-Insulin, SubCutaneous, Start date 12/25/22 7:30:00 EDT Start Date: 12/25/22 Stop Date: 12/25/22 Status: Completed Start: 12-24-2022 End: 12-24-2022 Insulin Lispro Sliding Scale 0-10 Units, Injection-Insulin, SubCutaneous, Start date 12/24/22 21:00:00 EDT Start Date: 12/24/22 Stop Date: 12/24/22 Status: Completed Start: 09-08-2019 insulin lispro (HUMALOG) injection vial 0-6 Units Start: 09-06-2019 End: 09-07-2019 insulin lispro (HUMALOG) inj ection vial 0-9 Units insulin regular (HUMULIN R;NOVOLIN R) 100 Units in sodium chloride 0.9 % 100 mL infusion (1 source) Start: 09-07-2019 End: 09-08-2019 insulin regular (HUMULIN R;NOVOLIN R) 100 Units in sodium chloride 0.9 % 100 mL infusion 2 ml metoclopramide 5 mg/ml prefilled syringe (1 source) Dopamine-2 Receptor Antagonist Start: 09-07-2019 End: 09-09-2019 metoclopramide (REGLAN) injection 10 mg 1.5 ml regular insulin, human 100 unt/ml prefilled syringe (1 source) Insulin Start: 09-09-2019 End: 09-09-2019 insulin regular (HUMULIN R;NOVOLIN R) injection 5 Units Start: 09-09-2019 End: 09-09-2019 insulin regular (HUMULIN R;N OVOLIN R) injection 5 Units Triamcinolone (1 source) Corticosteroid Start: 02-04-2017 Kenalog -40 mg February, 40 mg vancomycin (VANCOCIN) 1500 mg in dextrose 5 % 250 mL IVPB (1 source) Start: 09-07-2019 End: 09-09-2019 vancomycin (VANCOCIN) 1500 mg in dextrose 5 % 250 mL IVPB Vitamin D3 TABS (1 source) Vitamin D3 TABS TAKE 1 TABLET DAILY. Quantity: 0 Refills: 0 Ordered: 24-Mar-2023 DO Active Problems Active Problems Problem Classification Problem Date Documented Date Episodic/Chronic Acute and unspecified renal failure (1 source) Acute kidney failure, unspecified; Translations: [ACUTE KIDNEY FAILURE UNSPECIFIED] Onset: 3 Episodic Acute and unspecified renal failure (2 sources) Acute injury of kidney; Translations: [THANG (acute kidney injury)] Onset: 9 Resolved: 9 09-09-2019 Acute cerebrovascular disease (1 source) Cerebral infarction, unspecified; Translations: [CEREBRAL INFARCTION UNSPECIFIED] Onset: 2 Chronic Alcohol-related disorders (16 sources) History of alcohol abuse; Translations: [Alcohol abuse, in remission] Onset: 9 09-16-2023 Chronic Alcohol-related disorders (2 sources) History of alcohol abuse; Translations: [History of alcohol abuse] Onset: 9 09-09-2019 Episodic Cardiac dysrhythmias (20 sources) Unspecified atrial fibrillation; Translations: [Atrial fibrillation] Onset: 8 Chronic Cardiac dysrhythmias (15 sources) Bradycardia, unspecified; Translations: [Sinus bradycardia] Onset: 3 Episodic Cardiac dysrhythmias (2 sources) Typical atrial flutter; Translations: [Typical atrial flutter] Onset: 8 09-10-2019 Chronic kidney disease (16 sources) Chronic kidney disease; Translations: [Chronic kidney disease, unspecified] Onset: 3 09-16-2023 Chronic Chronic obstructive pulmonary disease and bronchiectasis (18 sources) Panacinar emphysema; 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 emphysema] Onset: 2 09-16-2023 Chronic Congestive heart failure; nonhypertensive (20 sources) Chronic systolic heart failure; Translations: [Chronic systolic (congestive) heart failure] Onset: 3 01-20-2023 Chronic Coronary atherosclerosis and other heart disease (20 sources) Coronary arteriosclerosis; Translations: [Coronary atherosclerosis] Onset: 5 09-09-2019 Chronic Deficiency and other anemia (3 sources) Anemia; Translations: [Anemia, unspecified] Onset: 3 Episodic Delirium, dementia, and amnestic and other cognitive disorders (20 sources) Dementia; Translations: [Unspecified dementia without behavioral disturbance] Onset: 3 Chronic Diabetes mellitus with complications (20 sources) Type 2 diabetes mellitus with hyperglycemia; Translations: [Type 2 diabetes mellitus with diabetic autonomic (poly)neuropathy] Onset: 3 Chronic Diabetes mellitus without complication (20 sources) Insulin treated type 2 diabetes mellitus; Translations: [Type 2 diabetes mellitus without complication] Onset: 3 09-09-2019 Chronic Diseases of white blood cells (2 sources) Leukocytosis; Translations: [Leukocytosis] Onset: 9 Resolved: 9 09-09-2019 Chronic Diseases of white blood cells (2 sources) Band neutrophil count above reference range; Translations: [Bandemia] 09-10-2019 Episodic Disorders of lipid metabolism (20 sources) Hyperlipidemia; Translations: [Hyperlipidemia, unspecified] Onset: 3 09-09-2019 Chronic Esophageal disorders (20 sources) Gastroesophageal reflux disease without esophagitis; Translations: [Gastro-esophageal reflux disease without esophagitis] Onset: 3 Chronic Essential hypertension (20 sources) Hypertensive disorder; Translations: [Essential hypertension] Onset: 3 09-09-2019 Chronic Fever of unknown origin (2 sources) Fever with chills; Translations: [Fever and chills] 09-10-2019 Episodic Fluid and electrolyte disorders (4 sources) Hyponatremia; Translations: [Dehydration] Onset: 9 Resolved: 9 09-09-2019 Episodic Hypertension with complications and secondary hypertension (17 sources) Hypertensive heart disease; Translations: [Hypertensive heart disease without heart failure] Onset: 8 09-10-2019 Chronic Late effects of cerebrovascular disease (2 sources) Hemiplegia and hemiparesis following cerebral infarction affecting right dominant side; Translations: [Other sequelae of cerebral infarction] Onset: 3 Chronic Miscellaneous mental health disorders (1 source) Psychophysiologic insomnia; Translations: [Psychophysiologic insomnia] Chronic Nutritional deficiencies (1 source) Moderate protein-calorie malnutrition; Translations: [MODERATE PROTEIN-CALORIE MLNUTRIT] Onset: 3 Chronic Nutritional deficiencies (2 sources) Deficiency of macronutrients; Translations: [Mild protein-calorie malnutrition] Onset: 9 09-09-2019 Episodic Osteoarthritis (16 sources) Osteoarthritis; Translations: [Unspecified osteoarthritis, unspecified site] Onset: 3 09-16-2023 Chronic Other aftercare (1 source) Long-term current use of drug therapy; Translations: [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 driver (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) drug therapy] Onset: 3 Episodic Other aftercare (3 sources) Encounter for therapeutic drug level monitoring; Translations: [ENC THERAPEUTC DRUG LEVL MONITORING] Onset: 3 Episodic Other aftercare (3 sources) Other [facility] (current) drug therapy; Translations: [OTH 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 CASTING MODEL MAKER APPRENTICE CURRENT DRUG THERAPY] Onset: 3 Episodic Other aftercare (1 source) middle or intermediate school principal (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) use of insulin; Translations: [JEWELRY CASTING MODEL MAKER APPRENTICE CURRENT USE OF INSULIN] Onset: 3 Episodic Other aftercare (3 sources) longterm (current) use of anticoagulants; Translations: [CUSTODIAL CURRNT USE ANTICOAGULANTS] Onset: 3 Episodic Other aftercare (1 source) longterm (current) use of antithrombotics/antipla telets; Translations: [JEWELRY CASTING MODEL MAKER APPRENTICE ANTITHROMBOT/ANTIPLATLE TS] Onset: 3 Episodic Other aftercare (1 source) longterm (current) use of aspirin; Translations: [CUSTODIAL CURRENT USE OF ASPIRIN] Onset: 3 Episodic Other aftercare (2 sources) Patient encounter status; Translations: [Encounter for therapeutic drug level monitoring] 09-16-2023 Episodic Other aftercare (1 source) Taking high risk medication; Translations: [Other [facility] (current) drug therapy] 10-21-2023 Episodic Other and ill-defined heart disease (16 sources) Left ventricular hypertrophy; Translations: [Cardiomegaly] Onset: 9 09-16-2023 Chronic Other circulatory disease (5 sources) Presence of other cardiac implants and grafts; Translations: [Presence of other cardiac implants and grafts] Onset: 3 Chronic Other circulatory disease (20 sources) History of cardiovascular surgery; Translations: [Presence of other cardiac implants and grafts] 08-07-2023 Chronic Other circulatory disease (1 source) History of cerebrovascular disease; Translations: [Personal history of other diseases of the circulatory system] Onset: 3 Episodic Other circulatory disease (1 source) Personal history of transient ischemic attack (TIA), and cerebral infarction without residual deficits; Translations: [PERS HX TIA AND CI NO RESID DEFICIT] Onset: 3 Episodic Other circulatory disease (1 source) Orthostatic hypotension; Translations: [Orthostatic hypotension] Onset: 3 Episodic Other connective tissue disease (1 source) Presence of unspecified artificial knee joint; Translations: [PRESENCE UNS ARTIFICIAL KNEE JOINT] Onset: 2 Chronic Other connective tissue disease (2 sources) Necrotizing fasciitis; Translations: [Necrotizing fasciitis] Onset: 9 09-07-2019 Episodic Other diseases of kidney and ureters (1 source) Disorder of kidney and/or ureter; Translations: [Disorder of kidney and ureter, unspecified] Onset: 3 Episodic Other injuries and conditions due to external causes (1 source) Injury, unspecified, initial encounter Episodic Other injuries and conditions due to external causes (1 source) History of falling; Translations: [HISTORY OF FALLING] Onset: 3 Episodic Other injuries and conditions due to external causes (1 source) Personal history of (healed) traumatic fracture; Translations: [PERSONAL HX HEALED TRAUMATIC FX] Onset: 3 Episodic Other nervous system disorders (3 sources) Polyneuropathy; Translations: [Polyneuropathy, unspecified] Onset: 3 Chronic Other nervous system disorders (20 sources) Peripheral nerve disease ; Translations: [Polyneuropathy, unspecified] Onset: 3 01-20-2023 Chronic Other nervous system disorders (1 source) Other chronic pain; Translations: [OTHER CHRONIC PAIN] Onset: 3 Chronic Other nervous system disorders (1 source) Other specified disorders of brain; Translations: [OTHER SPECIFIED DISORDERS OF BRAIN] Onset: 3 Chronic Other nervous system disorders (1 source) Impaired cognition; Translations: [Other symptoms and signs involving cognitive functions and awareness] Onset: 3 Episodic Other non-traumatic joint disorders (1 source) Pain in left hip; Translations: [PAIN IN LEFT HIP] Onset: 3 Episodic Other nutritional; endocrine; and metabolic disorders (18 sources) Body mass index 30+ - obesity; Translations: [Body mass index (BMI) 33.0-33.9, adult] Onset: 3 09-16-2023 Chronic Other nutritional; endocrine; and metabolic disorders (20 sources) Obesity; Translations: [Obesity, unspecified] Onset: 3 Chronic Other nutritional; endocrine; and metabolic disorders (1 source) Obesity, unspecified; Translations: [OBESITY UNSPECIFIED] Onset: 3 Chronic Other nutritional; endocrine; and metabolic disorders (3 sources) Body mass index (BMI) 30.0-30.9, adult; Translations: [BODY MASS INDEX BMI 30.0-30.9 ADULT] Onset: 3 Chronic Other nutritional; endocrine; and metabolic disorders (2 sources) Body mass index (BMI) 35.0-35.9, adult; Translations: [Body mass index (BMI) 35.0-35.9, adult] Onset: 4 Chronic Other nutritional; endocrine; and metabolic disorders (2 sources) Body mass index (BMI) 34.0-34.9, adult; Translations: [Body mass index (BMI) 34.0-34.9, adult] Onset: 3 Chronic Paralysis (4 sources) Hemiplegia, unspecified affecting right dominant side; Translations: [HEMIPL UNS AFFECT RT DOMINANT SIDE] Onset: 2 Chronic Peripheral and visceral atherosclerosis (18 sources) Peripheral vascular disease; Translations: [Peripheral vascular disease, unspecified] Onset: 5 09-10-2019 Chronic Pneumonia (except that caused by tuberculosis or sexually transmitted disease) (1 source) Pneumonia (except that caused by tuberculosis or sexually transmitted disease); Translations: [PNEUMONIA D/T CORONAVIRUS DIS 2019] Onset: 3 Residual codes; unclassified (20 sources) Obstructive sleep apnea syndrome; Translations: [Idiopathic sleep related nonobstructive alveolar hypoventilation] Onset: 9 09-09-2019 Chronic Residual codes; unclassified (1 source) Obstructive sleep apnea (adult) (pediatric); Translations: [OBSTRUCTIVE SLEEP APNEA] Onset: 2 Chronic Residual codes; unclassified (1 source) H/O: Disorder; Translations: [Personal history of other specified conditions] Onset: 3 Episodic Residual codes; unclassified (3 sources) Transient alteration of awareness; Translations: [TRANSIENT ALTERATION OF AWARENESS] Onset: 3 Episodic Residual codes; unclassified (1 source) Altered mental status, unspecified; Translations: [ALTERED MENTAL STATUS UNSPECIFIED] Onset: 3 Episodic Residual codes; unclassified (1 source) Do not resuscitate; Translations: [DO NOT RESUSCITATE] Onset: 3 Episodic Screening and history of mental health and substance abuse codes (20 sources) Personal history of nicotine dependence; Translations: [Ex-smoker] Onset: 3 09-16-2023 Episodic Comment on above: quit 10/2022, smoked X 50 years; Shock (2 sources) Septic shock; Translations: [Septic shock] Onset: 9 Resolved: 9 09-09-2019 Episodic Spondylosis; intervertebral disc disorders; other back problems (20 sources) Degeneration of lumbosacral intervertebral disc; Translations: [Other intervertebral disc degeneration, lumbosacral region] Onset: 3 09-16-2023 Chronic Substance-related disorders (3 sources) Smoker; Translations: [Nicotine dependence, cigarettes, uncomplicated] Onset: 9 09-09-2019 Chronic Syncope (20 sources) Syncope and collapse; Translations: [Syncope and collapse] Onset: 3 Episodic Thyroid disorders (1 source) Hypothyroidism, unspecified; Translations: [HYPOTHYROIDISM UNSPECIFIED] Onset: 3 Chronic Unclassified (1 source) Injury, unspecified, initial encounter; Translations: [Injury, unspecified, initial encounter] Onset: 2 Unclassified (1 source) CONTACT W/AND (SUSP) EXPOS COVID-19; Translations: [CONTACT W/AND (SUSP) EXPOS COVID-19] Onset: 3 Unclassified (1 source) Chronic atrial fibrillation, unspecified; Translations: [CHRONIC ATRIAL FIBRILLATION UNSPEC] Onset: 3 Unclassified (1 source) OTHER ACIDOSIS; Translations: [OTHER ACIDOSIS] Onset: 3 Unclassified (2 sources) Longstanding persistent atrial fibrillation; Translations: [Longstanding persistent atrial fibrillation] Onset: 4 Unclassified (2 sources) Other persistent atrial fibrillation; Translations: [Other persistent atrial fibrillation (CMS/HCC)] Onset: 4 Viral infection (3 sources) COVID-19; Translations: [COVID-19] Onset: 3 Past or Other Problems Problem Classification Problem Date Documented Da te Episodic/Chronic Abdominal pain (16 sources) Abdominal pain; Translations: [Unspecified abdominal pain] Onset: 03-18-2023 09-16-2023 Episodic Acute cerebrovascular disease (1 source) NIHSS score 4; Translations: [NIHSS SCORE 4] Onset: 09-03-2022 Episodic Bacterial infection; unspecified site (1 source) Enterococcus as the cause of diseases classified elsewhere; Translations: [ENTEROCOCCUS CAUSE OF DZ CLASS ELSW] Onset: 09-03-2022 Episodic Coronary atherosclerosis and other heart disease (20 sources) Presence of coronary angioplasty implant and graft; Translations: [Patient post percutaneous transluminal coronary angioplasty] Onset: 09-02-2009 09-16-2023 Episodic Deficiency and other anemia (18 sources) Normocytic anemia; Translations: [Anemia, unspecified] Onset: 09-09-2019 09-09-2019 Episodic Deficiency and other anemia (20 sources) Chronic anemia; Translations: [Anemia, unspecified] Onset: 03-18-2023 01-22-2023 Episodic Deficiency and other anemia (1 source) Iron deficiency anemia, unspecified; Translations: [IRON DEFICIENCY ANEMIA UNSPECIFIED] Onset: 10-14-2022 Episodic E Codes: Fall (2 sources) Fall from chair, initial encounter; Translations: [Unspecified fall, initial encounter] Onset: 10-09-2022 Episodic Epilepsy; convulsions (20 sources) Seizure; Translations: [Unspecified convulsions] Onset: 02-13-2023 01-20-2023 Episodic Fracture of upper limb (4 sources) Fracture of right shoulder girdle, part unspecified, initial encounter for closed fracture; Translations: [Fracture of unspecified part of right clavicle, initial encounter for closed fracture] Onset: 10-14-2022 Episodic Inflammatory conditions of male genital organs (18 sources) Soraida's gangrene; 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] Onset: 03-18-2023 09-10-2019 Episodic Malaise and fatigue (2 sources) Weakness; Translations: [Weakness] Onset: 07-15-2022 Episodic Open wounds of head; neck; and trunk (1 source) Laceration without foreign body of right eyelid and periocular area, initial encounter; Translations: [LAC NO FB RT EYELID PERIOCULAR INIT] Onset: 10-09-2022 Episodic Other aftercare (1 source) longterm (current) use of oral hypoglycemic drugs; Translations: [JEWELRY CASTING MODEL MAKER APPRENTICE USE ORAL HYPOGLYCEMIC DX] Onset: 10-14-2022 Episodic Other connective tissue disease (1 source) Repeated falls; Translations: [REPEATED FALLS] Onset: 10-14-2022 Episodic Other connective tissue disease (16 sources) Pain in bilateral legs; Translations: [Pain in right leg] Onset: 03-18-2023 09-16-2023 Episodic Other fractures (1 source) Multiple fractures of ribs, right side, initial encounter for closed fracture; Translations: [MX FX RIBS RT SIDE INITIAL CLOS FX] Onset: 10-09-2022 Episodic Other injuries and conditions due to external causes (1 source) Other specified injuries of head, initial encounter; Translations: [OTH SPEC INJURIES HEAD INITIAL ENC] Onset: 10-09-2022 Episodic Other lower respiratory disease (17 sources) Dyspnea; Translations: [Shortness of breath] Onset: 02-17-2018 09-10-2019 Episodic Other non-traumatic joint disorders (4 sources) Pain in right shoulder; Translations: [PAIN IN RIGHT SHOULDER] Onset: 10-07-2022 Episodic Other nutritional; endocrine; and metabolic disorders (1 source) Body mass index (BMI) 28.0-28.9, adult; Translations: [BODY MASS INDEX BMI 28.0-28.9 ADULT] Onset: 10-09-2022 Episodic Other nutritional; endocrine; and metabolic disorders (1 source) Abnormal weight loss; Translations: [ABNORMAL WEIGHT LOSS] Onset: 10-14-2022 Episodic Other screening for suspected conditions (not mental disorders or infectious disease) (20 sources) Other specified abnormal findings of blood chemistry; Translations: [Electrocardiogram abnormal] Onset: 02-17-2018 09-16-2023 Episodic Residual codes; unclassified (1 source) Disorientation, unspecified; Translations: [DISORIENTATION UNSPECIFIED] Onset: 09-03-2022 Episodic Residual codes; unclassified (16 sources) Insomnia; Translations: [Insomnia, unspecified] Onset: 03-18-2023 09-16-2023 Episodic Septicemia (except in labor) (3 sources) Sepsis, unspecified organism; Translations: [Sepsis due to Escherichia coli [E. coli]] Onset: 10-04-2022 Episodic Skin and subcutaneous tissue infections (18 sources) Cellulitis and abscess of lower limb; Translations: [Abscess of left lower limb] Onset: 03-18-2023 09-10-2019 Episodic Spondylosis; intervertebral disc disorders; other back problems (20 sources) Lumbago co-occurrent with right-side sciatica; Translations: [Lumbago with sciatica, right side] Onset: 01-21-2023 09-16-2023 Episodic Superficial injury; contusion (1 source) Contusion of other part of head, initial encounter; Translations: [CONTUS OTH PRT HEAD INITIAL ENCNTR] Onset: 10-09-2022 Episodic Unclassified (1 source) History of SARS-CoV-2; Translations: [Personal history of COVID-19] Onset: 12-21-2022 Urinary tract infections (1 source) Urinary tract infection, site not specified; Translations: [UTI SITE NOT SPECIFIED] Onset: 10-14-2022 Episodic Results Test Name Value Interpretation Reference Range Facility ALL CBC WITH AUTO DIFFon BASOPHILS ABSOLUTE AUTO 0.0 [facility] Basophils/100 WBC (Bld) 0.5 % 0.2 - 2.0 % [facility] Eosinophils/100 WBC (Bld) 5.4 % 0.9 - 7.0 % [facility] Erythrocyte distribution width (RBC) [Ratio] 13.6 % 11.0 - 15.0 % [facility] Hematocrit (Bld) [Volume fraction] 34.3 % Low 42.0 - 54.0 % [facility] Hemoglobin (Bld) [Mass/Vol] 10.5 g/dL Low 14.0 - 18.0 g/dL [facility] IMMATURE GRANULOCYTES ABS AUTO 0.02 [facility] Immature granulocytes/100 WBC (Bld) 0.3 % 0.0 - 0.5 % [facility] Interpretation and review of laboratory results Abnormal [facility] LYMPHOCYTES ABSOLUTE AUTO 2.4 [facility] Lymphocytes/100 WBC (Bld) 39.2 % 20.5 - 60.0 % [facility] MCH (RBC) [Entitic mass] 27.7 pg 25.9 - 34.0 pg [facility] MCHC (RBC) [Mass/Vol] 30.6 g/dL 29.9 - 35.2 g/dL [facility] MCV (RBC) [Entitic vol] 90.5 fL 80.0 - 94.0 fL [facility] MONOCYTES ABSOLUTE AUTO 0.5 [facility] Monocytes/100 WBC (Bld) 8.0 % 1.7 - 12.0 % [facility] NEUTROPHILS ABSOLUTE AUTO 2.9 [facility] Neutrophils/100 WBC (Bld) 46.6 % 43.0 - 75.0 % [facility] Platelet mean volume (Bld) [Entitic vol] 11.0 fL 9.5 - 13.5 fL [facility] TB EO # 0.3 [facility] TBH PLT 232 [facility] RBC 3.79 Low [facility] WBC 6.1 [facility] ECG 12 Leadon 10-21-2023 EKG performed today shows sinus bradycardia left axis deviation incomplete right bundle branch block at a rate of 58 bpm QRS duration 110 ms QT greater than 167 ms. Rhythm strip shows the same pattern. [facility] Work Phone: Basic metabolic 2000 panelon 10-14-2023 Anion gap [Moles/Vol] 13 mmol/L Normal 10-20 [facility] Comment on above: Performed By: #### 3 4529-8 #### TARA NGO ([id number]) [facility] ([facility]) [address] [place] [address] 26872 Calcium [Mass/Vol] 8.1 mg/dL Low 8.6-10.3 [facility] Comment on above: Performed By: #### 3 4529-8 #### TARA NGO ([id number]) [facility] ([facility]) [address] [place] [address] 79761 Chloride [Moles/Vol] 101 mmol/L Normal 98-107 [facility] Comment on above: Performed By: #### 3 4529-8 #### TARA NGO ([id number]) [facility] ([facility]) [address] [place] [address] 97528 CO2 [Moles/Vol] 25 mmol/L Normal 21-32 [facility] Comment on above: Performed By: #### 3 4529-8 #### TARA NGO ([id number]) [facility] ([facility]) [address] [place] [address] 16402 Creatinine [Mass/Vol] 1.17 mg/dL Normal 0.50-1.30 [facility] Comment on above: Performed By: #### 3 4529-8 #### TARA NGO ([id number]) [facility] ([facility]) [address] [place] [address] 46492 Glomerular filtration rate/1.73 sq M.predicted 67 mL/min/1.73m*2 Normal >[address] [facility] Comment on above: Result Comment: Calc ulations of estimated GFR are performed using the 2020 CKD-EPI Study Refit equation without the race variable for the IDMS-Traceable creatinine methods. https://jasn.asnjournals.org/content//ASN.53716 11396 Performed By: #### 3 4529-8 #### TARA NGO ([id number]) [facility] ([facility]) [address] [place] [address] Glucose [Mass/Vol] 161 mg/dL High 74-99 [facility] Comment on above: Performed By: #### 3 4529-8 #### TARA NGO ([id number]) [facility] ([facility]) [address] [place] [address] 11021 Potassium [Moles/Vol] 5.0 mmol/L Normal 3.5-5.3 [facility] Comment on above: Performed By: #### 3 4529-8 #### TARA NGO ([id number]) [facility] ([facility]) [address] [place] [address] 98860 Sodium [Moles/Vol] 134 mmol/L Low 136-145 [facility] Comment on above: Performed By: #### 3 4529-8 #### TARA NGO ([id number]) [facility] ([facility]) [address] [place] [address] 90470 Urea nitrogen [Mass/Vol] 31 mg/dL High 6-[address] [facility] Comment on above: Performed By: #### 3 4529-8 #### TARA NGO ([id number]) [facility] ([facility]) [address] [place] [address] 97910 ECG 12-LEADon 10-14-2023 ECG 12-LEAD Ventricular Rate 49 Atrial Rate 49 P-R Interval 136 QRS Duration 110 Q-T Interval 540 QTC Calculation(Bazett) 487 P Darien 6 R Darien -41 T Darien -29 QRS Count 8 Q Onset 226 P Onset 158 P Offset 202 T Offset 496 QTC Fredericia 504 Diagnosis Sinus bradycardia Left axis deviation ST & T wave abnormality, consider anterior ischemia Prolonged QT Abnormal ECG When compared with ECG of 14-OCT-2023 06:19, (unconfirmed) No significant change was found Confirmed by Sandra Plunkett ([id number]) on 10/16/2023 6:25:06 PM Normal [facility] ECG 12-LEAD Ventricular Rate 55 Atrial Rate 55 P-R Interval 156 QRS Duration 118 Q-T Interval 492 QTC Calculation(Bazett) 470 P Darien -5 R Darien -42 T Darien -26 QRS Count 9 Q Onset 209 P Onset 131 P Offset 187 T Offset 455 QTC Fredericia 478 Diagnosis Sinus bradycardia Left axis deviation Nonspecific intraventricular conduction delay T wave abnormality, consider anterolateral ischemia Prolonged QT Abnormal ECG When compared with ECG of 13-OCT-2023 23:48, (unconfirmed) No significant change was found Confirmed by Sandra Plunkett ([id number]) on 10/16/2023 6:16:04 PM Normal [facility] ECG 12-LEAD Ventricular Rate 68 Atrial Rate 68 P-R Interval 158 QRS Duration 110 Q-T Interval 436 QTC Calculation(Bazett) 463 P Darien 67 R Darien -47 T Darien -24 QRS Count 11 Q Onset 211 P Onset 132 P Offset 171 T Offset 429 QTC Fredericia 454 Diagnosis Normal sinus rhythm Left axis deviation ST & T wave abnormality, consider anterolateral ischemia Prolonged QT Abnormal ECG When compared with ECG of 13-OCT-2023 13:19, (unconfirmed) Inverted T waves have replaced nonspecific T wave abnormality in Anterolateral leads Confirmed by Sandra Plunkett ([id number]) on 10/15/2023 7:03:42 AM Normal [facility] Glucose Test strip manual (B ld) [Mass/Vol]on 10-14-2023 Glucose [Mass/Vol] 120 mg/dL High 74-99 [facility] Comment on above: Performed By: #### 3 4529-8 #### TARA NGO ([id number]) [facility] ([facility]) [address] [place] [address] 61039 Glucose [Mass/Vol] 138 mg/dL High 74-99 [facility] Comment on above: Performed By: #### 3 4529-8 #### TARA NGO ([id number]) [facility] ([facility]) [address] [place] [address] 35779 Magnesiumon 10-14-2023 Magnesium [Mass/Vol] 1.79 mg/dL Normal 1.60-2.40 [facility] Comment on above: Performed By: #### 3 4529-8 #### TARA NGO ([id number]) [facility] ([facility]) [address] [place] [address] 12589 Basic metabolic 2000 panelon 10-13-2023 Anion gap [Moles/Vol] 11 mmol/L Normal 10-20 [facility] Comment on above: Performed By: #### 2 4321-2 #### TARA NGO ([id number]) [facility] ([facility]) [address] [place] [address] 62632 Calcium [Mass/Vol] 8.6 mg/dL Normal 8.6-10.3 [facility] Comment on above: Performed By: #### 2 4321-2 #### TARA NGO ([id number]) [facility] ([facility]) [address] [place] [address] 25184 Chloride [Moles/Vol] 102 mmol/L Normal 98-107 [facility] Comment on above: Performed By: #### 2 4321-2 #### TARA NGO ([id number]) [facility] ([facility]) [address] [place] [address] 15930 CO2 [Moles/Vol] 29 mmol/L Normal 21-32 [facility] Comment on above: Performed By: #### 2 4321-2 #### TARA NGO ([id number]) [facility] ([facility]) [address] [place] [address] 77736 Creatinine [Mass/Vol] 1.06 mg/dL Normal 0.50-1.30 [facility] Comment on above: Performed By: #### 2 4321-2 #### TARA MUNGUIA RIO JANETTE ([id number]) [facility] ([facility]) [address] [place] [address] 19021 Glomerular filtration rate/1.73 sq M.predicted 76 mL/min/1.73m*2 Normal >[address] [facility] Comment on above: Result Comment: Calc ulations of estimated GFR are performed using the 2020 CKD-EPI Study Refit equation without the race variable for the IDMS-Traceable creatinine methods. https://jasn.asnjournals.org/content//ASN.78647 98798 Performed By: #### 2 4321-2 #### TARA NGO ([id number]) [facility] ([facility]) [address] [place] [address] 10425 Glucose [Mass/Vol] 73 mg/dL Low 74-99 [facility] Comment on above: Performed By: #### 2 4321-2 #### TARA NGO ([id number]) [facility] ([facility]) [address] [place] [address] 60999 Potassium [Moles/Vol] 4.1 mmol/L Normal 3.5-5.3 [facility] Comment on above: Performed By: #### 2 4321-2 #### TARA NGO ([id number]) [facility] ([facility]) [address] [place] [address] 64477 Sodium [Moles/Vol] 138 mmol/L Normal 136-145 [facility] Comment on above: Performed By: #### 2 4321-2 #### TARA NGO ([id number]) [facility] ([facility]) [address] [place] [address] 00617 Urea nitrogen [Mass/Vol] 29 mg/dL High 6-[address] [facility] Comment on above: Performed By: #### 2 4321-2 #### TARA NGO ([id number]) [facility] ([facility]) [address] [place] [address] 25444 ECG 12-LEADon 10-13-2023 ECG 12-LEAD Ventricular Rate 75 Atrial Rate 75 P-R Interval 172 QRS Duration 112 Q-T Interval 390 QTC Calculation(Bazett) 435 P Darien 57 R Darien -54 T Darien -12 QRS Count 13 Q Onset 211 P Onset 125 P Offset 189 T Offset 406 QTC Fredericia 419 Diagnosis Normal sinus rhythm Left axis deviation Nonspecific T wave abnormality Abnormal ECG When compared with ECG of 13-OCT-2023 07:16, (unconfirmed) Sinus rhythm has replaced Atrial flutter ST no longer depressed in Anterior leads Confirmed by Sandra Plunkett ([id number]) on 10/16/2023 6:05:45 PM Normal [facility] ECG 12-LEAD Ventricular Rate 109 Atrial Rate 227 QRS Duration 102 Q-T Interval 362 QTC Calculation(Bazett) 487 R Darien -73 T Darien 7 QRS Count 18 Q Onset 212 T Offset 393 QTC Fredericia 441 Diagnosis Atrial flutter with variable AV block Left axis deviation Nonspecific ST abnormality Abnormal ECG When compared with ECG of 12-OCT-2023 23:14, (unconfirmed) No significant change was found Confirmed by Sandra Plunkett ([id number]) on 10/16/2023 2:09:21 PM Normal [facility] ECG 12-LEAD Ventricular Rate 117 Atrial Rate 117 P-R Interval 178 QRS Duration 98 Q-T Interval 332 QTC Calculation(Bazett) 463 R Darien -69 T Darien 33 QRS Count 19 Q Onset 214 P Onset 125 P Offset 185 T Offset 380 QTC Fredericia 415 Diagnosis Atrial flutter with 2 to 1 block Left axis deviation Incomplete right bundle branch block Nonspecific ST abnormality Abnormal ECG When compared with ECG of 12-OCT-2023 14:40, No significant change was found Confirmed by Sandra Plunkett ([id number]) on 10/15/2023 7:02:20 AM Normal [facility] Glucose Test strip manual (B ld) [Mass/Vol]on 10-13-2023 Glucose [Mass/Vol] 178 mg/dL High 74-99 [facility] Comment on above: Performed By: #### 3 4529-8 #### TARA NGO ([id number]) [facility] ([facility]) [address] [place] [address] Glucose [Mass/Vol] 232 mg/dL High 74-99 [facility] Comment on above: Performed By: #### 3 4529-8 #### TARA NGO ([id number]) [facility] ([facility]) [address] [place] [address] Glucose [Mass/Vol] 101 mg/dL High 74-99 [facility] Comment on above: Performed By: #### 3 4529-8 #### TARA NGO ([id number]) [facility] ([facility]) [address] [place] [address] 24307 Glucose [Mass/Vol] 97 mg/dL Normal 74-99 [facility] Comment on above: Performed By: #### 3 4529-8 #### TARA NGO ([id number]) [facility] ([facility]) [address] [place] [address] 51949 Glucose [Mass/Vol] 147 mg/dL High 74-99 [facility] Comment on above: Performed By: #### 2 341-6 #### TARA NGO ([id number]) [facility] ([facility]) [address] [place] [address] 59348 Glucose [Mass/Vol] 66 mg/dL Low 74-99 [facility] Comment on above: Performed By: #### 2 341-6 #### TARA NGO ([id number]) [facility] ([facility]) [address] [place] [address] 05221 Magnesiumon 10-13-2023 Magnesium [Mass/Vol] 1.79 mg/dL Normal 1.60-2.40 [facility] Comment on above: Performed By: #### 1 9123-9 #### TARA NGO ([id number]) [facility] ([facility]) [address] [place] [address] 92824 TRANSESOPHAGEAL ECHO (JASMYNE)on 10-13-2023 TRANSESOPHAGEAL ECHO (JASMYNE) [address] [address] TRANSESOPHAGEAL ECHOCARDIOGRAM REPORT Patient Name: OTILIO Kimball Physician: [id number] Dana Mas MD Study Date: 10/13/2023 Ordering Provider: [id number] ESTHER LÓPEZ MRN/PID: [id number] Fellow: Nurse: Raine Griffiths RN Date of /Age: 1 1955 [employer]r: Katherin Cope RCS years Gender: M Additional Staff: Height: 187.96 cm Admit Date: 10/12/2023 Weight: 107.05 kg Admission Status: Inpatient - Routine BSA: 2.33 m2 [facility] Blood Pressure: 140 /78 mmHg Study Type: TRANSESOPHAGEAL ECHO (JASMYNE) Diagnosis/ICD: Unspecified atrial fibrillation-I48.91 Indication: A-FIB CPT Codes: JASMYNE Complete-89857; Moderate Sedation Services initial 15 minutes patient >5 years-96458 Study Detail: The following Echo studies were performed: 2D, Doppler and color flow. Agitated saline used as a contrast agent for intraseptal flow evaluation. The patient was sedated. PHYSICIAN INTERPRETATION: JASMYNE Details: The JASMYNE probe used was [id number]. Agitated saline contrast echo was performed to assess for the presence of a patent foramen ovale. JASMYNE Medication: Midazolam and Fentanyl was used to sedate the patient for this exam. JASMYNE Procedure: The probe was passed without difficulty. The following complication was encountered during the procedure: none. Left Ventricle: Left ventricular systolic function is moderately decreased. Wall motion is abnormal. The left ventricular cavity size is moderately dilated. There is mild left ventricular hypertrophy. Left ventricular diastolic filling was not assessed. There the left ventricular filling pressure was not assessed. Patient is tachycardic during the study. In that setting, patient estimated left ventricular ejection fraction is about 30%. In addition to global hypokinesis, the septum appears to be particularly hypokinetic, possibly paradoxical motion. This could be related to patient's rhythm. Left Atrium: The left atrium is moderately dilated. There is no definite left atrial thrombus present. There is no atrial septal defect present. The left atrial appendage is enlarged. There is no definite left atrial mass present. Left atrium measures about 5 cm in transverse diameter. Right Ventricle: The right ventricle is upper limits of normal in size. There is mildly reduced right ventricular systolic function. Right Atrium: The right atrium is moderately dilated. Aortic Valve: The aortic valve is trileaflet. There is mild aortic valve cusp calcification. There is no evidence of aortic valve regurgitation. There is no aortic stenosis or regurgitation. There is aortic sclerosis. Aortic root size measures 3.8 cm. Ascending aorta measures 3.9 cm. Mitral Valve: The mitral valve is normal in structure. There is no evidence of mitral valve stenosis. There is normal mitral valve leaflet mobility. There is trace mitral valve regurgitation. Tricuspid Valve: The tricuspid valve is structurally normal. There is normal tricuspid valve leaflet mobility. There is trace to mild tricuspid regurgitation. The Doppler estimated RVSP is within normal limits at 26.0 mmHg. Pulmonic Valve: The pulmonic valve is structurally normal. There is no indication of pulmonic valve regurgitation. Pericardium: There is no pericardial effusion noted. Aorta: The aortic root is normal. Pulmonary Veins: The pulmonary veins appear normal and return normally to the left atrium. CONCLUSIONS: 1. Left ventricular systolic function is moderately decreased. 2. There is mildly reduced right ventricular systolic function. 3. The left atrium is moderately dilated. 4. Left atrium measures about 5 cm in transverse diameter. 5. The right atrium is moderately dilated. 6. RVSP within normal limits. 7. There is no aortic stenosis or regurgitation. There is aortic sclerosis. Aortic root size measures 3.8 cm. Ascending aorta measures 3.9 cm. 8. Left ventricular cavity size is moderately dilated. 9. No left atrial mass. 10. No left atrial thrombus. 11. No evidence of left atrial or left atrial appendage mass thrombus or spontaneous echo contrast. 12. Average left atrial appendage velocity 60 cm/s. 13. Biatrial enlargement. 14. No PFO or ASD or atrial septal aneurysm. 15. Dilated cardiomyopathy with LVEF of about 30% possibly rate related?. 16. Okay to proceed with electrical cardioversion as planned. QUANTITATIVE DATA SUMMARY: AORTA MEASUREMENTS: Normal Ranges: Asc Ao, d: 3.60 cm (2.1-3.4cm) TRICUSPID VALVE/RVSP: Normal Ranges: Peak TR Velocity: 2.40 m/s RV Syst Pressure: 26.0 mmHg (< 30mmHg) [id number] Dana Mas MD Electronically signed on 10/13/2023 at 11:56:54 AM Final Normal [facility] CBC panel Auto (Bld)on 10-12 Erythrocyte distribution width (RBC) [Ratio] 13.9 % Normal 11.5-14.[address] [facility] Comment on above: Performed By: #### 5 8410-2 #### TARA NGO ([id number]) [facility] ([facility]) [address] [place] [address] 11306 Hematocrit (Bld) [Volume fraction] 36.9 % Low 41.0-52.[address] [facility] Comment on above: Performed By: #### 5 8410-2 #### TARA NGO ([id number]) [facility] ([facility]) [address] [place] [address] 29247 Hemoglobin (Bld) [Mass/Vol] 11.7 g/dL Low 13.5-17.[address] [facility] Comment on above: Performed By: #### 5 8410-2 #### TARA NGO ([id number]) [facility] ([facility]) [address] [place] [address] 74976 MCH (RBC) [Entitic mass] 28.1 pg Normal 26.0-34.[address] [facility] Comment on above: Performed By: #### 5 8410-2 #### TARA NGO ([id number]) [facility] ([facility]) [address] [place] [address] 38412 MCHC (RBC) [Mass/Vol] 31.7 g/dL Low 32.0-36.0 [facility] Comment on above: Performed By: #### 5 8410-2 #### TARA NGO ([id number]) [facility] ([facility]) [address] [place] [address] 38471 MCV (RBC) [Entitic vol] 89 fL Normal 80-[address] [facility] Comment on above: Performed By: #### 5 8410-2 #### TARA NGO ([id number]) [facility] ([facility]) [address] [place] [address] 03452 Nucleated RBC/100 WBC (Bld) [Ratio] 0.0 /100 WBCs Normal 0.0-0.[address] [facility] Comment on above: Performed By: #### 5 8410-2 #### TARA NGO ([id number]) [facility] ([facility]) [address] [place] [address] 92477 Platelets (Bld) [#/Vol] 224 x10*3/uL Normal 150-[address] [facility] Comment on above: Performed By: #### 5 8410-2 #### TARA NGO ([id number]) [facility] ([facility]) [address] [place] [address] RBC (Bld) [#/Vol] 4.17 x10*6/uL Low 4.50-5.90 [facility] Comment on above: Performed By: #### 5 8410-2 #### TARA NGO ([id number]) [facility] ([facility]) [address] [place] [address] 02984 WBC (Bld) [#/Vol] 10.7 x10*3/uL Normal 4.4-11.3 [facility] Comment on above: Performed By: #### 5 8410-2 #### TARA NGO ([id number]) [facility] ([facility]) [address] [place] [address] Comprehensive metabolic 2000 panelon 10-12-2023 Albumin BCP dye [Mass/Vol] 3.7 g/dL Normal 3.4-5.[address] [facility] Comment on above: Performed By: #### 2 4323-8 #### TARA NGO ([id number]) [facility] ([facility]) [address] [place] [address] 79315 ALP [Catalytic activity/Vol] 61 U/L Normal 33-[address] [facility] Comment on above: Performed By: #### 2 4323-8 #### TARA NGO ([id number]) [facility] ([facility]) [address] [place] [address] 08067 ALT With P-5'-P [Catalytic activity/Vol] 18 U/L Normal 10-[address] [facility] Comment on above: Result Comment: Tracey ents treated with Sulfasalazine may generate falsely decreased results for ALT. Performed By: #### 2 4323-8 #### TARA NGO ([id number]) [facility] ([facility]) [address] [place] [address] Anion gap [Moles/Vol] 13 mmol/L Normal 10-20 [facility] Comment on above: Performed By: #### 2 4323-8 #### TARA NGO ([id number]) [facility] ([facility]) [address] [place] [address] 34972 AST With P-5'-P [Catalytic activity/Vol] 12 U/L Normal 9-[address] [facility] Comment on above: Performed By: #### 2 4323-8 #### TARA NGO ([id number]) [facility] ([facility]) [address] [place] [address] 38441 Bilirubin [Mass/Vol] 0.5 mg/dL Normal 0.0-1.2 [facility] Comment on above: Performed By: #### 2 4323-8 #### TARA NGO ([id number]) [facility] ([facility]) [address] [place] [address] 34525 Calcium [Mass/Vol] 8.9 mg/dL Normal 8.6-10.3 [facility] Comment on above: Performed By: #### 2 4323-8 #### TARA NGO ([id number]) [facility] ([facility]) [address] [place] [address] 83648 Chloride [Moles/Vol] 100 mmol/L Normal 98-107 [facility] Comment on above: Performed By: #### 2 4323-8 #### TARA NGO ([id number]) [facility] ([facility]) [address] [place] [address] 71853 CO2 [Moles/Vol] 29 mmol/L Normal 21-32 [facility] Comment on above: Performed By: #### 2 4323-8 #### TARA NGO ([id number]) [facility] ([facility]) [address] [place] [address] 11997 Creatinine [Mass/Vol] 1.00 mg/dL Normal 0.50-1.30 [facility] Comment on above: Performed By: #### 2 4323-8 #### TARA NGO ([id number]) [facility] ([facility]) [address] [place] [address] 40264 Glomerular filtration rate/1.73 sq M.predicted 81 mL/min/1.73m*2 Normal >[address] [facility] Comment on above: Result Comment: Calc ulations of estimated GFR are performed using the 2020 CKD-EPI Study Refit equation without the race variable for the IDMS-Traceable creatinine methods. https://jasn.asnjournals.org/content//ASN.98055 54494 Performed By: #### 2 4323-8 #### TARA NGO ([id number]) [facility] ([facility]) [address] [place] [address] 79813 Glucose [Mass/Vol] 107 mg/dL High 74-99 [facility] Comment on above: Performed By: #### 2 4323-8 #### TARA NGO ([id number]) [facility] ([facility]) [address] [place] [address] 46407 Potassium [Moles/Vol] 3.7 mmol/L Normal 3.5-5.3 [facility] Comment on above: Performed By: #### 2 4323-8 #### TARA NGO ([id number]) [facility] ([facility]) [address] [place] [address] 50350 Protein [Mass/Vol] 6.3 g/dL Low 6.4-8.2 [facility] Comment on above: Performed By: #### 2 4323-8 #### TARA NGO ([id number]) [facility] ([facility]) [address] [place] [address] 28503 Sodium [Moles/Vol] 138 mmol/L Normal 136-145 [facility] Comment on above: Performed By: #### 2 4323-8 #### TARA NGO ([id number]) [facility]) [address] [place] [address] Urea nitrogen [Mass/Vol] 33 mg/dL High 6-[address] [facility] Comment on above: Performed By: #### 2 4323-8 #### TARA NGO ([id number]) [facility] ([facility]) [address] [place] [address] 61983 ECG 12-LEADon 10-12-2023 ECG 12-LEAD Ventricular Rate 112 Atrial Rate 112 P-R Interval 200 QRS Duration 108 Q-T Interval 348 QTC Calculation(Bazett) 475 R Darien -61 T Darien 41 QRS Count 18 Q Onset 211 P Onset 111 P Offset 174 T Offset 385 QTC Fredericia 428 Diagnosis Atrial flutter with 2:1 AV conduction Left axis deviation Incomplete right bundle branch block Nonspecific ST abnormality Abnormal ECG When compared with ECG of 12-OCT-2023 09:45, (unconfirmed) Sinus rhythm has replaced Atrial flutter Incomplete right bundle branch block is now Present Reconfirmed by Geovani Mack ([id number]) on 10/12/2023 3:47:44 PM Normal [facility] ECG 12-LEAD Ventricular Rate 113 Atrial Rate 226 QRS Duration 104 Q-T Interval 340 QTC Calculation(Bazett) 466 P Darien 259 R Darien -58 T [place] 9 QRS Count 19 Q Onset 211 P Onset 135 P Offset 194 T Offset 381 QTC Fredericia 419 Diagnosis Atrial flutter with 2:1 AV conduction Left axis deviation Nonspecific ST abnormality Abnormal ECG When compared with ECG of 06-APR-2023 09:46, Atrial flutter has replaced Sinus rhythm Vent. rate has increased BY [address] now depressed in Anterior leads Confirmed by Geovani Mack ([id number]) on 10/12/2023 3:47:15 PM Normal [facility] Glucose Test strip manual (B ld) [Mass/Vol]on 10-12-2023 Glucose [Mass/Vol] 223 mg/dL High 74-99 [facility] Comment on above: Performed By: #### 2 341-6 #### TARA NGO ([id number]) [facility] ([facility]) [address] [place] [address] 22887 Magnesiumon 10-12-2023 Magnesium [Mass/Vol] 1.49 mg/dL Low 1.60-2.40 [facility] Comment on above: Performed By: #### 1 9123-9 #### TARA NGO ([id number]) [facility] ([facility]) [address] [place] [address] 29759 PT and aPTT panel Coag (PPP) on 10-12-2023 aPTT Coag (PPP) [Time] 29 s Normal 27-38 [facility] Comment on above: Order Comment: The A PTT is no longer used for monitoring Unfractionated Heparin Therapy. For monitoring Heparin Therapy, use the Heparin Assay. Performed By: #### 3 4529-8 #### TARA NGO ([id number]) [facility] ([facility]) [address] [place] [address] 58036 INR Coag (PPP) [Relative time] 1.1 Normal 0.9-1.[address] [facility] Comment on above: Order Comment: The A PTT is no longer used for monitoring Unfractionated Heparin Therapy. For monitoring Heparin Therapy, use the Heparin Assay. Performed By: #### 3 4529-8 #### TARA NGO ([id number]) [facility] (EM) [address] [place] [address] 89273 PT Coag (PPP) [Time] 12.2 s Normal 9.8-12.8 [facility] Comment on above: Order Comment: The A PTT is no longer used for monitoring Unfractionated Heparin Therapy. For monitoring Heparin Therapy, use the Heparin Assay. Performed By: #### 3 4529-8 #### TARA NGO ([id number]) [facility] ([facility]) [address] [place] [address] 68930 TSH WITH REFLEX TO FREE T4 I F ABNORMALon 10-12-2023 TSH Qn 3.26 m[IU]/L Normal 0.44-3.[address] [facility] Comment on above: Order Comment: TSH t esting is performed using different testing methodology at [facility] than at other [facility]. Direct result comparisons should only be made within the same method. Performed By: #### T GORGE #### TARA NGO ([id number]) [facility] ([facility]) [address] [place] [address] 83499 ED Note-Physicianon 10-08-19 ED Note-Physician Normal [facility] Comment on above: Result Comment: Elec tronically Signed By: Partha SOLANO, Jered Sharp.br\Date and Time Signed: 10/07/23 23:11 EST Auto Diffon 10-07-2023 Basophils/100 WBC (Bld) 0.6 % Normal 0.0-2.0 [facility] Comment on above: Order Comment: Order Added by Discern Expert. Performed By: #### 2 517812, 2454735, 9419632, 25185838, 7092363, 93379801, 7260550, 4571227, 60904615 ####[facility] [address] [place] [address] Basophils/Leukocytes Auto (Bld) [Pure # fraction] 0.1 E9/L Normal 0.0-0.2 [facility] Comment on above: Order Comment: Order Added by Discern Expert. Performed By: #### 2 601314, 7577632, 6950138, 91585165, 2979742, 17249859, 4576550, 4017307, 90768191 ####[facility] [address] [place] [address] Eosinophils/100 WBC (Bld) 3.0 % Normal 0.0-8.0 [facility] Comment on above: Order Comment: Order Added by Discern Expert. Performed By: #### 2 000002, 3482631, 5473762, 83948225, 3333014, 51731778, 9743407, 6872165, 17472052 ####[facility] [address] [place] [address] Eosinophils/Leukocytes Auto (Bld) [Pure # fraction] 0.3 E9/L Normal 0.0-0.5 [facility] Comment on above: Order Comment: Order Added by Pearl Expert. Performed By: #### 2 930981, 5571525, 1593385, 86522713, 2826728, 07869495, 7860620, 4162231, 43831398 ####[facility] [address] [place] [address] Lymphocytes/100 WBC (Bld) 25.2 % Normal 14.0-50.0 [facility] Comment on above: Order Comment: Order Added by Discern Expert. Performed By: #### 2 477427, 5899178, 0413582, 71858212, 7551825, 78738072, 8006136, 1618475, 64977758 ####[address] [place] [address] Lymphocytes/Leukocytes Auto (Bld) [Pure # fraction] 2.6 E9/L Normal 1.0-4.0 [facility] Comment on above: Order Comment: Order Added by Pearl Expert. Performed By: #### 2 465043, 9639977, 3666015, 82098604, 9790653, 17669466, 6412794, 1731693, 71172827 ####[address] [place] [address] Monocytes/100 WBC (Bld) 4.7 % Normal 4.0-14.0 [facility] Comment on above: Order Comment: Order Added by Pearl Expert. Performed By: #### 2 851964, 1328456, 0022972, 19264089, 0525287, 73451615, 2579812, 6208624, 28429826 ####[facility] [address] [place] [address] Monocytes/Leukocytes Auto (Bld) [Pure # fraction] 0.5 E9/L Normal 0.2-1.0 [facility] Comment on above: Order Comment: Order Added by Pearl Expert. Performed By: #### 2 005497, 5401762, 9722981, 54684845, 1908089, 58415397, 7754283, 0845146, 92252881 ####[facility] [address] [place] [address] Neutrophils/100 WBC (Bld) 66.5 % Normal 36.0-75.0 [facility] Comment on above: Order Comment: Order Added by Discern Expert. Performed By: #### 2 948462, 1727441, 5370494, 99734763, 7952354, 52473489, 4837272, 1717302, 82235810 ####[facility] [address] [place] [address] Neutrophils/Leukocytes Auto (Bld) [Pure # fraction] 6.8 E9/L Normal 2.0-7.5 [facility] Comment on above: Order Comment: Order Added by Discern Expert. Performed By: #### 2 637526, 9037297, 6421069, 46625688, 2663597, 34872486, 2462537, 6092355, 62348123 ####[address] [place] [address] BMPon 10-07-2023 Anion gap [Moles/Vol] 12 mmol/L Normal 6-16 [facility] Comment on above: Performed By: #### 2 487363, 0688565, 3817002, 92137846, 2524634, 88672912, 2936828, 3999344, 23967797 ####[address] [place] [address] BUN/Creat Ratio 26 No Units High 10-20 [facility] Comment on above: Performed By: #### 2 587992, 0629938, 9610182, 11478686, 0515673, 98120598, 8574045, 6001374, 71773453 ####[address] [place] [address] Calcium [Mass/Vol] 8.7 mg/dL Low 8.9-11.1 [facility] Comment on above: Performed By: #### 2 365489, 0534674, 2652609, 38662292, 6001192, 24504538, 7631343, 8631679, 59747640 ####[facility] [address] [place] [address] Chloride [Moles/Vol] 102 mmol/L Normal 101-111 [facility] Comment on above: Performed By: #### 2 380522, 5719516, 9943226, 77491377, 6697577, 33399822, 3856352, 0601226, 14060181 ####[facility] [address] [place] [address] CO2 [Moles/Vol] 28 mmol/L Normal 21-31 [facility] Comment on above: Performed By: #### 2 455221, 9876265, 3582231, 22351488, 7708441, 28169346, 9433132, 9932774, 70354265 ####[facility] [address] [place] [address] Creatinine [Mass/Vol] 0.9 mg/dL Normal 0.5-1.3 [facility] Comment on above: Performed By: #### 2 806095, 8282156, 9458305, 19518198, 2147237, 84821709, 8350606, 0610984, 48397340 ####[facility] [address] [place] [address] Glucose [Mass/Vol] 181 mg/dL Normal 55-199 [facility] Comment on above: Performed By: #### 2 287877, 1120137, 5925956, 92326476, 5713046, 07615492, 3500631, 2045440, 27688119 ####[facility] [address] [place] [address] Potassium [Moles/Vol] 4.4 mmol/L Normal 3.5-5.3 [facility] Comment on above: Performed By: #### 2 984708, 6838977, 0302069, 07919296, 7270813, 79327504, 6352948, 3775369, 05332322 ####[facility] [address] [place] [address] Sodium [Moles/Vol] 138 mmol/L Normal 135-145 [facility] Comment on above: Performed By: #### 2 794081, 0050859, 1876111, 55869998, 4582352, 97500951, 5713717, 3251837, 94984288 ####[facility] [address] [place] [address] Urea nitrogen [Mass/Vol] 23 mg/dL High 5-21 [facility] Comment on above: Performed By: #### 2 388666, 4734819, 1331754, 43224974, 3614694, 10514706, 1853101, 8601369, 95359819 ####[address] [place] [address] CBC w/ Auto Diffon Erythrocyte distribution width (RBC) [Ratio] 14.4 % High 10.9-14.2 [facility] Comment on above: Performed By: #### 2 508609, 3846884, 9405443, 12043101, 0963815, 01295938, 5376534, 8814996, 49740633 ####[address] [place] [address] Hematocrit (Bld) [Volume fraction] 37.5 % Low 37.7-49.0 [facility] Comment on above: Performed By: #### 2 611788, 2429211, 0018401, 35737422, 5071015, 47259579, 6044974, 8836807, 96947460 ####[facility] [address] [place] [address] Hemoglobin (Bld) [Mass/Vol] 12.1 g/dL Low 13.5-17.5 [facility] Comment on above: Performed By: #### 2 690194, 6452242, 2911096, 55209215, 5253899, 72381184, 4260880, 6824060, 89019501 ####[address] [place] [address] MCH (RBC) [Entitic mass] 27.4 pg Normal 27.0-34.0 [facility] Comment on above: Performed By: #### 2 434318, 2892900, 5995004, 70096559, 4026829, 21455351, 5077683, 7707044, 74771571 ####[facility] [address] [place] [address] MCHC (RBC) [Mass/Vol] 32.1 g/dL Normal 31.4-36.0 [facility] Comment on above: Performed By: #### 2 640956, 4197038, 1787050, 96357363, 1591417, 92297685, 4744365, 0426256, 79595273 ####[address] [address] MCV (RBC) [Entitic vol] 85.3 fL Normal 80.0-100.0 [facility] Comment on above: Performed By: #### 2 602069, 3949744, 5136962, 48910358, 2693575, 45298075, 5416307, 9333617, 56215935 ####[address] [place] [address] Platelet mean volume (Bld) [Entitic vol] 8.3 fL Normal 6.4-10.8 [facility] Comment on above: Performed By: #### 2 813170, 0752645, 6872835, 71596181, 8455377, 03677628, 4003325, 2242585, 42345674 ####[address] [place] [address] Platelets (Bld) [#/Vol] 273.0 E9/L Normal 150.0-500.0 [facility] Comment on above: Performed By: #### 2 390425, 0906684, 8474817, 16462686, 8461240, 67380729, 7340239, 1574376, 13507884 ####[facility] [address] [place] [address] RBC (Bld) [#/Vol] 4.4 E12/L Normal 4.3-5.9 [facility] Comment on above: Performed By: #### 2 235438, 5457385, 0328901, 51624864, 8550720, 14285104, 7058920, 1562980, 03582730 ####[facility] [address] [place] [address] WBC corrected for nucl RBC Auto (Bld) [#/Vol] 10.3 E9/L Normal 4.0-11.0 [facility] Comment on above: Performed By: #### 2 446227, 0638660, 7846170, 83795072, 3675874, 85003253, 7816206, 4139336, 63105078 ####[facility] [address] [place] [address] Consent for Treatmenton Consent for Treatment [id number] 0TIFF Normal [facility] Discharge Instructionson Discharge Instructions [id number]#1.00 TIFF Normal [facility] ED Clinical Summaryon 2023 ED Clinical Summary Normal Kameron valdez [facility] ED Patient Education Noteon 10-07-2023 ED Patient Education Note Normal [facility] ED Patient Summaryon 024 ED Patient Summary Normal [facility] Hep Func Panelon 10-07-2023 Albumin [Mass/Vol] 3.6 g/dL Normal 3.3-5.0 [facility] Comment on above: Performed By: #### 2 011724, 6326156, 5114636, 46311680, 2798329, 20043780, 5546265, 9855477, 71472917 ####[facility] [address] [place] [address] Albumin/Globulin [Mass ratio] 1.4 {ratio} Normal 1.1-2.2 [facility] Comment on above: Performed By: #### 2 377491, 4140212, 1698565, 31316646, 9595462, 45801337, 8464566, 4942143, 09704806 ####[facility] [address] [place] [address] Alk Phos 62 Int._Unit/L Normal 21-98 [facility] Comment on above: Performed By: #### 2 516606, 1216429, 2059407, 72395113, 9656203, 84952929, 8319201, 0880562, 23914572 ####[facility] [address] [place] [address] ALT 13 Int._Unit/L Normal 6-46 [facility] Comment on above: Performed By: #### 2 859393, 0573183, 9597196, 98859796, 7914694, 59964052, 6862774, 0129777, 70424010 ####[facility] [address] [place] [address] AST 11 Int._Unit/L Normal 5-43 [facility] Comment on above: Performed By: #### 2 176672, 8096084, 2959200, 48332220, 7565389, 08391501, 4041678, 3907372, 42597915 ####[facility] [address] [place] [address] Bili Direct 0.1 mg/dL Normal 0.0-0.4 [facility] Comment on above: Performed By: #### 2 820541, 4834283, 2292083, 57656816, 6843902, 94251057, 5662816, 8276636, 46206311 ####[facility] [address] [place] [address] Bili Indirect 0.3 mg/dL Normal 0.1-0.9 [facility] Comment on above: Performed By: #### 2 120008, 7900332, 2928867, 95595280, 9826987, 40615478, 6365564, 5359171, 88214734 ####[facility] [address] [place] [address] Bili Total 0.4 mg/dL Normal 0.0-1.1 [facility] Comment on above: Performed By: #### 2 569554, 7731966, 5017681, 76992604, 7887553, 97498735, 9986955, 2511491, 04052005 ####[facility] [address] [place] [address] Globulin (S) [Mass/Vol] 2.5 g/dL Normal 1.4-4.0 [facility] Comment on above: Performed By: #### 2 968906, 0012667, 2684352, 99078698, 6574503, 67820770, 3473829, 7297648, 70583415 ####[address] [place] [address] Protein [Mass/Vol] 6.1 g/dL Normal 6.0-7.8 [facility] Comment on above: Performed By: #### 2 981145, 4875083, 4513272, 34833902, 6004346, 79411642, 9896194, 3865112, 59032715 ####[address] [place] [address] Lipase Levelon 10-07-2023 Lipase Lvl 15 unit/L Normal 13-58 [facility] Comment on above: Performed By: #### 2 617471, 3673873, 3539274, 75313365, 9122420, 24600833, 3754892, 9795180, 71238295 ####[address] [place] [address] Magnesiumon 10-07-2023 Magnesium [Mass/Vol] 1.6 mg/dL Normal 1.3-2.4 [facility] Comment on above: Performed By: #### 2 976797, 8718461, 8945013, 15050359, 0941125, 40666212, 3002818, 4328583, 97199148 ####[facility] [address] [place] [address] Medication Listson Medication Lists [id number]#1.00 TIFF Normal [facility] Monitor Recordon 10-07-2023 Monitor Record [id number]#1. 00TIFF Normal [facility] Outside Recordson 10-07-2023 Outside Records [id number]#1.00 TIFF Normal [facility] PT & PTTon 10-07-2023 aPTT Coag (PPP) [Time] 30.0 second(s) Normal 25.1-36.5 [facility] Comment on above: Result Comment: Para meter 15 days - 4 weeks 1 - 5 months 6 - 11 months 1 - 5 years 6 - 10 years 11 - 17 years PTT Mean: 35.4 (27.6-45.6) Mean: 33.5 (24.8-40.7) Mean: 32.4 (25.1-40.7) Mean: 31.6 (24.0-39.2) Mean: 31.6 (26.9-38.7) Mean: 31.0 (24.6-38.4) Pediatric Reference ranges were obtained from a study by Param Ruiz et al. prepared from 1437 samples obtained at 7 different centers using the same coagulation reagent and instrumentation as [facility]. Currently there are no coagulation studies available worldwide for children to 14 days, and no normal ranges. Heparin therapeutic range (represented by Anti-Factor Xa activity of 0.2 - 0.4 U/mL) corresponds to PTT of 56.6 - 109.0 sec. Performed By: #### 2 874402, 7995066, 0579781, 79965109, 4112997, 39224304, 1107005, 3353514, 09858353 ####[facility] [address] [place] [address] INR Coag (PPP) [Relative time] 1.1 {INR} Invalid Interpretation Code [facility] Comment on above: Result Comment: INR results are specifically intended to assess patients stabilized on long-term Anticoagulation therapy suggested INR?s ?Less Intensive Anticoagulation? 2.0 ? 3.0Conventional Range 3.0 ? 4.5 Performed By: #### 2 511856, 1107946, 5843676, 31279855, 7069545, 05793736, 8615821, 9074365, 56799933 ####[facility] [address] [place] [address] PT Coag (PPP) [Time] 12.5 second(s) Normal 9.4-12.5 [facility] Comment on above: Result Comment: 15 d ays - 4 weeks 1 - 5 months 6 -11 months 1 ? 5 years 6 ? 10 years 11 -17 years Mean: 11.2 (9.5 ? 12.6) Mean: 11.0 (9.7 ? 12.8) Mean: 11.0 (9.8 ? 13.0) Mean: 11.3 (9.9 ? 13.4) Mean: 11.7 (10.0 ? 14.6) Mean: 11.8 (10.0 - 14.1) Pediatric Reference ranges were obtained from a study by Param Ruiz et al. prepared from 1437 samples obtained at 7 different centers using the same coagulation reagent and instrumentation as [facility]. Currently there are no coagulation studies available worldwide for children to 14 days, and no normal ranges. Performed By: #### 2 414139, 7579862, 4700459, 60630478, 6958181, 70955391, 3015851, 9204619, 56747652 ####[facility] [address] [place] [address] Progress Note-Nurseon 2023 Progress Note-Nurse ECG delayed due to complaints of chest pain not till patient in room 5 Normal [facility] Troponin 0 Hr.on 10-07-2023 Troponin 9.90 pg/mL Low 15.90-38.40 [facility] Comment on above: Result Comment: The 95% CI (Confidence Interval) PPV (Positive Predictive Value) for myocardial infarction in females is 38 pg/mL, in males 51 pg/mL. The results should be used in conjunction with clinical conditions of myocardial infarction.(Access High Sensitivity Troponin I Instructions For Use, [employer], May 2018) Performed By: #### 2 428394, 9272966, 4833962, 73477674, 0318598, 38277232, 9372410, 2567671, 06229168 ####[facility] [address] [place] [address] Troponin 3 Hr.on 10-07-2023 Troponin 8.60 pg/mL Low 15.90-38.40 [facility] Comment on above: Result Comment: The 95% CI (Confidence Interval) PPV (Positive Predictive Value) for myocardial infarction in females is 38 pg/mL, in males 51 pg/mL. The results should be used in conjunction with clinical conditions of myocardial infarction.([employer] High Sensitivity Troponin I Instructions For Use, [employer], May 2018) Performed By: #### 1 5833061 ####[facility] [address] [place] [address] XR Chest Single Viewon 10-07 XR Chest Single View Normal [facility] eGFRon 10-07-2023 GFR/1.73 sq M.predicted among non-blacks MDRD (S/P/Bld) [Vol rate/Area] mL/min/{1.73_m2} Normal >=59 [facility] Comment on above: Order Comment: Order added by Discern Expert. Performed By: #### 2 916329, 5667166, 3204198, 86379144, 0782223, 16389093, 5108053, 3087612, 31132047 ####[address] [place] [address] ECG 12 Leadon 09-16-2023 EKG shows possibilit y of atrial fibrillation but cannot rule out also atrial flutter atypical with 221 AV conduction rate of 112 bpm QRS 100 ms QT corrected 164 ms. Rhythm strip shows the same pattern. [facility] Work Phone: [facility] Work Phone: Heart and Vascular Office/Cl inic Noteon 08-29-2023 Heart and Vascular Office/Clinic Note Normal [facility] Comment on above: Result Comment: Elec tronically Signed By: Zia LEMONS, Jaja Dash\.br\Date and Time Signed: 08/29/23 11:45 EST\.br\Electronically Co-Signed By: Deonte Remy\.br\Date and Time Co-Signed: 06/25/23 18:47 EDT Cardiac Device Check - Remot amanda 07-16-2023 Radiology Study observation (narrative) [facility] Work Phone: Cardiac Device Check - Remot eOrdered By: Geovani Mack on 07-16-2023 [facility] Work Phone: Physician Orderon 06-26-2023 Physician Order [id number]#1.0 0CD:127 Normal [facility] Ambulatory Visit Summaryon 0 06-25-2023 Ambulatory Visit Summary Normal [facility] Outside Recordson 05-06-2023 Outside Records [id number]#1 .00OTGTIFF [facility] BASIC METABOLIC PANELon 07-0 Anion gap [Moles/Vol] 12 mmol/L 10 - 2 0 mmol/L [facility] Comment on above: Performed By: #### B MP #### [address] [id number] Calcium [Mass/Vol] 9.0 mg/dL 8.6 - 10. 3 mg/dL [facility] Comment on above: Performed By: #### B MP #### [address] [id number] Chloride [Moles/Vol] 104 mmol/L 98 - 10 7 mmol/L [facility] Comment on above: Performed By: #### B MP #### [address] [id number] Creatinine [Mass/Vol] 1.00 mg/dL 0.50 - 1.30 mg/dL [facility] Comment on above: Performed By: #### B MP #### [address] [id number] GFR/1.73 sq M.predicted among non-blacks MDRD (S/P/Bld) [Vol rate/Area] 81 mL/min/{1.73_m2} Normal >90 [facility] Comment on above: Result Comment: CALC ULATIONS OF ESTIMATED GFR ARE PERFORMED USING THE 2020 CKD-EPI STUDY REFIT EQUATION WITHOUT THE RACE VARIABLE FOR THE IDMS-TRACEABLE CREATININE METHODS. https://jasn.asnjournals.org/content//ASN.64804 42558 Performed By: #### B MP #### [address] [id number] Glucose [Mass/Vol] 164 mg/dL High 74 - 99 mg/dL [facility] Comment on above: Performed By: #### B MP #### [address] [id number] HCO3 (Bld) [Moles/Vol] 28 mmol/L Normal 21 - 32 [facility] Comment on above: Performed By: #### B MP #### [address] [id number] Potassium [Moles/Vol] 4.2 mmol/L 3.5 - 5.3 mmol/L [facility] Comment on above: Performed By: #### B MP #### [address] [id number] Sodium [Moles/Vol] 140 mmol/L 136 - 145 mmol/L [facility] Comment on above: Performed By: #### B MP #### [address] [id number] Urea nitrogen [Mass/Vol] 43 mg/dL High 6 - 23 mg/dL [facility] Comment on above: Performed By: #### B MP #### [address], [place] [id number] Basic metabolic 2000 panelon 04-06-2023 CO2 [Moles/Vol] 28 mmol/L 21 - 32 mmol/L [facility] GFR MALE 81 - PINF [facility] Comment on above: CALCULATIONS OF CEZAR MATED GFR ARE PERFORMED USING THE 2020 CKD-EPI STUDY REFIT EQUATION WITHOUT THE RACE VARIABLE FOR THE IDMS-TRACEABLE CREATININE METHODS. https://jasn.asnjournals.org/content//ASN.96130 37372 CBCon 04-06-2023 Erythrocyte distribution width (RBC) [Ratio] 13.2 % Normal 11.5 - 14.5 [facility] Comment on above: Performed By: #### C BC #### [address] [id number] Hematocrit (Bld) [Volume fraction] 36.4 % Low 41.0 - 52.0 [facility] Comment on above: Performed By: #### C BC #### [address] [id number] Hemoglobin (Bld) [Mass/Vol] 11.5 g/dL Low 13.5 - 17.5 [facility] Comment on above: Performed By: #### C BC #### [address] [id number] MCHC (RBC) [Mass/Vol] 31.6 g/dL Low 32.0 - 36.0 [facility] Comment on above: Performed By: #### C BC #### [address] [id number] MCV (RBC) [Entitic vol] 90 fL Normal 80 - 100 [facility] Comment on above: Performed By: #### C BC #### [address] [id number] Platelets (Bld) [#/Vol] 258 10*3/uL Normal 150 - 450 [facility] Comment on above: Performed By: #### C BC #### [address] [place] [id number] RBC 4.04 x10E12/L Low 4.50 - 5.90 [facility] Comment on above: Performed By: #### C BC #### [address] [id number] WBC (Bld) [#/Vol] 7.0 10*3/uL Normal 4.4 - 11.3 [facility] Comment on above: Performed By: #### C BC #### [address] [id number] CBC panel Auto (Bld)on 04-06 Erythrocyte distribution width (RBC) [Ratio] 13.2 % 11.5 - 14.5 % [facility] Hematocrit (Bld) [Volume fraction] 36.4 % Low 41.0 - 52.0 % [facility] Hemoglobin (Bld) [Mass/Vol] 11.5 g/dL Low 13.5 - 17.5 g/dL [facility] MCHC (RBC) [Mass/Vol] 31.6 g/dL Low 32.0 - 36.0 g/dL [facility] MCV (RBC) [Entitic vol] 90 fL 80 - 100 fL [facility] Platelets (Bld) [#/Vol] 258 10*3/uL [facility] RBC (Bld) [#/Vol] 4.04 10*6/uL Low [facility] WBC (Bld) [#/Vol] 7.0 10*3/uL [facility] COAGULATION SCREENon 023 aPTT Coag (Bld) [Time] 33 s Normal 27 - 38 [facility] Comment on above: Result Comment: Note new reference range as of 03/24/2023 at 10:00am. Performed By: #### C OAGS #### [address] [id number] PT Coag (PPP) [Time] 11.8 s Normal 9.8 - 12.8 [facility] Comment on above: Result Comment: Note new reference range as of 03/24/2023 at 10:00am. Performed By: #### C OAGS #### [address] [id number] PT, INR 1.0 Normal 0.9 - 1.1 [facility] Comment on above: Performed By: #### C OAGS #### [facility] [address], [place] [id number] Discharge [id number] Discharge Profile2 Discharge Orders: Code Status: Code Status at Discharge: Full Code DNR Order Additional Instructions (peds only): Appointments: Follow-Up Appointment 01: Physician/Dept/Service [facility] Reason for ReferralIncision Check Scheduled Date/[id number] 09:30 [facility] Office, [address] [facility], [address] Phone [phone] Follow-Up Appointment 02: Physician/Dept/Service [facility] Central Registration Reason for ReferralDevice check Scheduled Date/[id number] 07:30 [facility] Phone [phone] Follow-Up Appointment 03: Physician/Dept/Service Dr Mack Reason for ReferralFollow-up Scheduled Date/[id number] 08:30 [facility] Office, [facility] Phone [phone] Electronic Signatures: Mahesh Araiza (COOR) (Signed 06-Apr-2023 09:57) Authored: Discharge Orders, Appointments, Gold Form - Supervisor [employer] Summary Last Updated: 06-Apr-2023 09:57 by Mahesh Araiza (COOR) Normal [facility] Electrocardiogram 12 Leadon 04-06-2023 Electrocardiogram 12 Lead Ventricular Rate 58 Atrial Rate 58 P-R Interval 150 QRS Duration 118 Q-T Interval 444 QTC Calculation(Bazett) 435 P Darien 76 R Darien -43 T Darien 10 QRS Count 10 Q Onset 228 P Onset 153 P Offset 184 T Offset 450 QTC Fredericia 438 Diagnosis Class Abnormal Diagnosis Sinus bradycardia Left axis deviation Nonspecific intraventricular conduction delay Abnormal ECG No previous ECGs available Confirmed by Amol Reno ([id number]) on 04/06/2023 5:30:31 PM Normal [facility] Electrocardiogram 12 LeadOrd ered By: Amol Reno on 04-06-2023 Atrial Rate 58 BPM [facility] Work Phone: [phone] P Darien 76 degrees [facility] Work Phone: [phone] P Offset 184 ms [facility] Work Phone: [phone] P Onset 153 ms [facility] Work Phone: [phone] HI Interval 150 ms [facility] Work Phone: [phone] Q Onset 228 ms [facility] Work Phone: [phone] QRS Count 10 beats [facility] Work Phone: [phone] QRS Duration 118 ms [facility] Work Phone: [phone] QT Interval 444 ms [facility] Work Phone: [phone] QTC Calculation(Bazett) 435 ms [facility] Work Phone: [phone] QTC Fredericia 438 ms [facility] Work Phone: [phone] R Darien -43 degrees [facility] Work Phone: [phone] T Darien 10 degrees [facility] Work Phone: [phone] T Offset 450 ms [facility] Work Phone: [phone] Ventricular Rate 58 BPM [facility] Work Phone: [phone] [facility] Work Phone: [phone] Electrocardiogram 12 Leadon 04-06-2023 Sinus bradycardia Left axis deviation Nonspecific intraventricular conduction delay Abnormal ECG No previous ECGs available Confirmed by Amol Reno ([id number]) on 04/06/2023 5:30:31 PM Amol De La Cruz M D - 04/06/2023 Sinus bradycardia Left axis deviation Nonspecific intraventricular conduction delay Abnormal ECG No previous ECGs available Confirmed by Amol Reno ([id number]) on 04/06/2023 5:30:31 PM [facility] Work Phone: No Panel Informationon 04-06 [facility] Interpretation and review of laboratory results Abnormal [facility] Order Reconciliationon 04-06 Order Reconciliation Page 1 Discharge Reconciliation Document Reconciliation Type: Discharge requested on behalf of Esther Adams (Advanced Practice Nurse) done by Esther Adams (IDENTIFICATION TECHNICIAN-[facility]) Discharge - Reconciliation: 06-Apr-2023 14:32 by: Esther Adams (IDENTIFICATION TECHNICIAN-DRAPERY MAKER) Home Medications EnteredHOME MEDICATIONS AT DISCHARGE DateReconciliation Comment/ Additional Information acetaminophen 325 mg oral tablet 2 tab(s) orally every 6 hours, As Needed - for pain 06-Apr-2023 10:01 acetaminophen 325 mg oral tablet 2 tab(s) orally every 6 hours, As Needed - for pain 06-Apr-2023 10:01 acetaminophen 325 mg oral tablet is continued as acetaminophen 325 mg oral tablet aspirin 81 mg oral tablet, chewable 1 tab(s) orally once a day 06-Apr-2023 09:54 aspirin 81 mg oral tablet, chewable 1 tab(s) orally once a day 06-Apr-2023 09:54 aspirin 81 mg oral tablet, chewable is continued as aspirin 81 mg oral tablet, chewable docusate sodium 100 mg oral capsule 1 cap(s) orally 2 times a day 06-Apr-2023 09:58 docusate sodium 100 mg oral capsule 1 cap(s) orally 2 times a day 06-Apr-2023 09:58 docusate sodium 100 mg oral capsule is continued as docusate sodium 100 mg oral capsule furosemide 20 mg oral tablet 1 tab(s) orally once a day, As Needed 03-Apr-2023 09:53 furosemide 20 mg oral tablet 1 tab(s) orally once a day, As Needed 03-Apr-2023 09:53 furosemide 20 mg oral tablet is continued as furosemide 20 mg oral tablet Keppra 750 mg oral tablet 1 tab(s) orally 2 times a day 03-Apr-2023 09:53 Keppra 750 mg oral tablet 1 tab(s) orally 2 times a day 03-Apr-2023 09:53 Keppra 750 mg oral tablet is continued as Keppra 750 mg oral tablet loratadine 10 mg oral tablet 1 tab(s) orally once a day, As Needed 03-Apr-2023 09:54 loratadine 10 mg oral tablet 1 tab(s) orally once a day, As Needed 03-Apr-2023 09:54 loratadine 10 mg oral tablet is continued as loratadine 10 mg oral tablet magnesium oxide 400 mg oral tablet 1 tab(s) orally once a day 03-Apr-2023 09:54 magnesium oxide 400 mg oral tablet 1 tab(s) orally once a day 03-Apr-2023 09:54 magnesium oxide 400 mg oral tablet is continued as magnesium oxide 400 mg oral tablet metFORMIN 500 mg oral tablet, extended release 2 tab(s) orally 2 times a day 03-Apr-2023 09:55 metFORMIN 500 mg oral tablet, extended release 2 tab(s) orally 2 times a day 03-Apr-2023 09:55 metFORMIN 500 mg oral tablet, extended release is continued as metFORMIN 500 mg oral tablet, extended release midodrine 5 mg oral tablet 1 tab(s) orally 3 times a day 03-Apr-2023 10:00 midodrine 5 mg oral tablet 1 tab(s) orally 3 times a day 03-Apr-2023 10:00 midodrine 5 mg oral tablet is continued as midodrine 5 mg oral tablet MiraLax oral powder for reconstitution 17 gram(s) orally every 24 hours, As Needed 06-Apr-2023 10:02 MiraLax oral powder for reconstitution 17 gram(s) orally every 24 hours, As Needed 06-Apr-2023 10:02 MiraLax oral powder for reconstitution is continued as MiraLax oral powder for reconstitution mirtazapine 30 mg oral tablet 1 tab(s) orally once a day (at bedtime) 06-Apr-2023 09:57 mirtazapine 30 mg oral tablet 1 tab(s) orally once a day (at bedtime) 06-Apr-2023 09:57 mirtazapine 30 mg oral tablet is continued as mirtazapine 30 mg oral tablet omeprazole 20 mg oral delayed release tablet 1 tab(s) orally once a day 03-Apr-2023 10:02 omeprazole 20 mg oral delayed release tablet 1 tab(s) orally once a day 03-Apr-2023 10:02 omeprazole 20 mg oral delayed release tablet is continued as omeprazole 20 mg oral delayed release tablet pravastatin 40 mg oral tablet 1 tab(s) orally once a day (at bedtime) 06-Apr-2023 09:56 pravastatin 40 mg oral tablet 1 tab(s) orally once a day (at bedtime) 06-Apr-2023 09:56 pravastatin 40 mg oral tablet is continued as pravastatin 40 mg oral tablet Tradjenta 5 mg oral tablet 1 tab(s) orally once a day 03-Apr-2023 10:03 Tradjenta 5 mg oral tablet 1 tab(s) orally once a day 03-Apr-2023 10:03 Tradjenta 5 mg oral tablet is continued as Tradjenta 5 mg oral tablet Vitamin D3 25 mcg (1000 intl units) oral tablet 1 tab(s) orally once a day 06-Apr-2023 09:54 Vitamin D3 25 mcg (1000 intl units) oral tablet 1 tab(s) orally once a day 06-Apr-2023 09:54 Vitamin D3 25 mcg (1000 intl units) oral tablet is continued as Vitamin D3 25 mcg (1000 intl units) oral tablet Current OrdersDateHOME MEDICATIONS AT DISCHARGE DateReconciliation Comment/ Additional Information Acetaminophen Tablet (TYLENOL)DOSE = 650 mg Oral Every 6 Hours, PRN Pain - Mild (1-3) 06-Apr-2023 14:31 Acetaminophen is not required Ondansetron Injectable (ZOFRAN)DOSE = 4 mg IntraVenous Push Every 8 Hours, PRN Nausea & Vomiting 06-Apr-2023 14:31 Ondansetron Injectable is not required Sodium Chloride 0.9% Infusion IV Bag Volume = 1,000 mL Run at: 10 mL/hr IntraVenous 03-Apr-2023 10:07 Sodium Chloride 0.9% Infusion is not required Vancomycin 1 gram IVPB/ Premixed Soln 200 mL OnceRecommended Infusion Time: 1 hour(s) 3 (more content not included)... Normal [facility] PT and aPTT panel Coag (PPP) on 04-06-2023 aPTT Coag (PPP) [Time] 33 s Un [facility] Comment on above: Note new reference josé miguel jackson as of 03/24/2023 at 10:00am. INR Coag (PPP) [Relative time] 1.0 {INR} 0.9 - 1.1 [facility] PT Coag (PPP) [Time] 11.8 s [facility] Comment on above: Note new reference josé miguel jackson as of 03/24/2023 at 10:00am. Patient Profile - Preop v3on 04-06-2023 Patient Profile - Preop v3 Patient Profile - Preop: Initial Info: Patient DemographicsName: OTILIO SUAREZ Date: 1955 Address: [address] [place] [address] Primary Phone [phone] How to be AddressedJerry Spoken Language PreferredEnglish Source of Informationpatient Stated Reason for Admissionloop implant Primary Contact Name and NumberShawn Limitations on Visitors/Phone Callsnone Medications Brought to Hospitalno General Health: Weight in kg96 kilogram(s) Weight in jio622.6 pound(s) Weight Methodactual (measured) Scale Typestanding Height in inch(es) Height Methodstated Patient or Family Member Reaction to Anesthesiano previous reaction Blood Avoidance/Restrictions none Previous Transfusion Reactionnot applicable Equipment Currently Used at Homewheelchair Health Mgmt: Symptoms/Conditions Managed at Homecardiovascular; endocrine; neurological Cardiovascular Symptoms/Conditionsdys rhythmia; hypertension; heart failure Cardiovascular Management Strategiesmedication therapy Endocrine Symptoms/Conditionsdia betes Endocrine Management Strategiesmedication therapy; blood glucose testing Neurological Symptoms/Conditionsstr carol Neurological Management Strategiesroutine screening Barriers to Managing Healthinability to prepare medication Relationship/Environ: Lives Withalone Living Arrangementsnursing home Resource/Environmental Concernsnone Anticipated Transition Tonursing home Services Anticipated at Transitionnone Tobacco Use: Tobacco Useno Additional Information: Information Review: Allergies, Home Meds and Significant Events have been Reviewed and Verified with Patient/Familyyes Allergy, Intolerance, Adverse Event: Allergies: Dilaudid: Drug, Unknown, Active morphine: Drug, Unknown, Active penicillin: Drug, Unknown, Active Electronic Signatures: Paula Beal) (Signed 06-Apr-2023 09:58) Authored: Initial Info, General Health, Health Mgmt, Relationship/Environ, Tobacco Use, Additional Information Last Updated: 06-Apr-2023 09:58 by Paula Beal) Normal [facility] Heart and Vascular Office/Cl inic Noteon 03-29-2023 Heart and Vascular Office/Clinic Note Normal [facility] Comment on above: Result Comment: Elec tronically Signed By: Zia LEMONS, Jaja Dash\.br\Date and Time Signed: 03/29/23 14:48 EDT\.br\Electronically Co-Signed By: Afsaneh Puente\.br\Date and Time Co-Signed: 03/26/23 15:29 EDT Physician Orderon 03-27-2023 Physician Order [id number]#1. 00CD:127 [facility] Consent for Treatmenton 03-06 Consent for Treatment [id number] [id number]#1.00 CD:127 [facility] Mcc Recordson 03-26 Mcc Records [id number]#1.0 0CD:127 [facility] Outside Cardiovascularon Outside Cardiovascular [id number]#1. 00CD:127 [facility] Outside Cardiovascularon Outside Cardiovascular [id number]#1. 00CD:127 [facility] Office Visit (Cardiology)on 03-24-2023 Follow-up visit Diagnoses/Problems Assessed Syncope and collapse (780.2) (R55) Sinus node dysfunction (427.81) (I49.5) Former smoker (V15.82) (Z87.891) quit 10/2022, smoked X 50 years Atrial fibrillation (427.31) (I48.91) Class 1 obesity with body mass index (BMI) of 30.0 to 30.9 in adult (278.00,V85.30) (E66.9,Z68.30) Orders Class 1 obesity with body mass index (BMI) of 30.0 to 30.9 in adult Losing just 5 to 10 pounds may lower your risk of health problems.; Status:Complete - Retrospective Authorization; Done: 24Mar2023 Pre-operative cardiovascular examination, Sinus node dysfunction, Syncope and collapse Complete Blood Count; Status:Active - Retrospective Authorization; Requested for:24Mar2023; Comprehensive Metabolic Panel; Status:Active - Retrospective Authorization; Requested for:24Mar2023; PT/INR; Status:Active - Retrospective Authorization; Requested for:24Mar2023; SocHx: Former smoker Tobacco Use Screening; Status:Complete; Done: 24Mar2023 Syncope and collapse Loop Recorder Implant; Status:Active - Retrospective Authorization; Requested for:24Mar2023; Patient Instructions I, Vida Lopez LPN, asher scribing for and in the presence of Dr. Mack We will arrange a loop recorder implant You do not need to hold any medicines Labs need to be drawn same day as procedure in hospital Follow up 1 week after procedure for an incision check appointment Continue same medications/ treatment. Patient educted on proper medication use. Patient educated on risk factor modification. Please bring any lab or test results from other providers/ physician to your next appointment. Please bring all prescription medicines, vitamins, and herbal supplements, and over the counter medicines you use with you every time you come to this office for an appointment. Prescriptions will not be filled unless you are compliant with your follow up appointments or have a follow up appointment scheduled as per instruction of your physician. Refills should be requested at the time of your visit. Chief Complaint Patient here for EP consultation per Dr. Lee due to a-fib History of Present Illness 67-year-old male with a past medical history of coronary artery disease, reflux disease, dementia, diabetes mellitus, hypertension, hyperlipidemia and seizure disorder. Also history of diabetes mellitus. Patient had a history of atrial fibrillation for which he was on calcium channel and also beta-celsa therapy and Eliquis. Patient apparently for the last year he has been having frequent episodes of dizziness and syncope for which beta-blockers and calcium channel celsa have been decreased due to possibility of bradycardia and also he has been off Plavix and Eliquis therapy. Patient had an outside Holter monitor performed that shows sinus bradycardia with brief episodes of paroxysmal supraventricular and nonsustained ventricular tachycardia up to 6 beats of duration. Also during hospitalizations due to syncope, he was orthostatic for which recently was placed on midodrine decrease in the frequency of the syncopal episodes. Patient states that he continues living in a rehabilitation area. EKG performed in February 17, 2023 shows possibility of sinus bradycardia at a rate of 56 bpm with intraventricular conduction delay QRS duration 134 ms. QT corrected 429 ms. An echocardiogram in December 2022 shows left ventricular ejection fraction 60 to 65% with grade 2 diastolic dysfunction. Trace tricuspid regurgitation. A stress echocardiogram in January 2023 shows no evidence of ischemia with a left ventricular ejection fraction 60 to 65%. Clinical impression 1. Recurrence of syncope 2. Evidence of bradycardia during admissions at outside hospital 3. Orthostatic hypotension, on midodrine therapy with some improvement of his syncopal episode 4. History of dementia 5. History of hypertension now with episodes of hypotension 6. Diabetes mellitus 7. Normal left ventricular function per echocardiogram as described above 8. No evidence of ischemia per stress test as described above Plan recommendations I had a lengthy discussion with patient and family member regarding management for recurrence of syncope. Most likely is related with postural hypotension. Midodrine is working on diet but also could be related with rhythm abnormalities especially bradycardia or AV lavon disease. Recommendation was for loop recorder for further evaluation of syncopal episodes was discussed today during this office visit. Procedure, risk, benefits and possible complications discussed with patient. All questions answered. Patient and family members agree with that. If patient continues having episodes of syncope associated with postural hypotension we will add Florinef to his medical therapy. Follow my office 7 days postprocedure for wound assessment. Risk factor modifications and lifestyle modifications discussed with patient. Diet , exercise and hydration discussed during thi (more content not included)... Normal [employer] Tobacco Screening.on 023 Adult depression screening assessment No [facility] [place] DO Work Phone: Fall risk assessment a) No falls within the last year [facility] [address] DO Work Phone: Tobacco use status [facility] b) No [facility] [address] DO Work Phone: Outside Recordson 03-04-2023 Outside Records [id number] 04 [id number]#1. 00CD:127 [facility] Outside Recordson 03-03-2023 Outside Records [id number] 0OTGTIFF [facility] Progress Note-Nurseon 2022 Progress Note-Nurse [id number]#1. 00CD:127 Normal [facility] Consent for Treatmenton 02-03 Consent for Treatment [id number] [id number]#1.0 0CD:127 Normal [facility] Heart and Vascular Office/Cl inic Noteon 02-24-2023 Heart and Vascular Office/Clinic Note Normal [facility] Comment on above: Result Comment: Elec tronically Signed By: Bushra JIMENEZ CNP\.br\Date and Time Signed: 02/24/23 13:45 EDT Progress Note-Physicianon Progress Note-Physician [id number]#1. 00CD:127 Normal [facility] Auto Diffon 02-17-2023 Basophils/100 WBC (Bld) 0.7 % Normal 0.0-2.0 [facility] Comment on above: Order Comment: Order Added by Discern Expert. Performed By: #### 2 744053, [id number], 8261546, 3637506, 12074092, 10248364, 2677460, 1108917 ####[facility] [address] [place] [address] Basophils/Leukocytes Auto (Bld) [Pure # fraction] 0.1 E9/L Normal 0.0-0.2 [facility] Comment on above: Order Comment: Order Added by Discern Expert. Performed By: #### 2 614614, 25986749, 9342464, 9014731, 38974761, 61742780, 3505050, 8562185 ####[facility] [address] [place] [address] Eosinophils/100 WBC (Bld) 7.6 % Normal 0.0-8.0 [facility] Comment on above: Order Comment: Order Added by Discern Expert. Performed By: #### 2 745053, 55508577, 7374316, 1581567, 37583274, 29916974, 8098622, 1521005 ####[facility] [address] [place] [address] Eosinophils/Leukocytes Auto (Bld) [Pure # fraction] 0.5 E9/L Normal 0.0-0.5 [facility] Comment on above: Order Comment: Order Added by Discern Expert. Performed By: #### 2 662024, 83185151, 8042371, 4983006, 47464846, 54607846, 2818097, 1176594 ####[address] [place] [address] Lymphocytes/100 WBC (Bld) 41.2 % Normal 14.0-50.0 [facility] Comment on above: Order Comment: Order Added by Discern Expert. Performed By: #### 2 323846, 02329872, 5578202, 4415839, 73324740, 44947376, 6026168, 4973626 ####[address] [address] Lymphocytes/Leukocytes Auto (Bld) [Pure # fraction] 2.8 E9/L Normal 1.0-4.0 [facility] Comment on above: Order Comment: Order Added by Discern Expert. Performed By: #### 2 296233, 88318665, 7287768, 9326519, 09696981, 13569746, 0818602, 6643902 ####[address] [address] Monocytes/100 WBC (Bld) 6.9 % Normal 4.0-14.0 [facility] Comment on above: Order Comment: Order Added by Discern Expert. Performed By: #### 2 279363, 89719789, 8314854, 3736597, 55822979, 93126787, 7325168, 5327293 ####[address] [place] [address] Monocytes/Leukocytes Auto (Bld) [Pure # fraction] 0.5 E9/L Normal 0.2-1.0 [facility] Comment on above: Order Comment: Order Added by Pearl Expert. Performed By: #### 2 868902, 73654219, 0115171, 4798776, 54002613, 72868304, 6221453, 8722906 ####[facility] [address] [place] [address] Neutrophils/100 WBC (Bld) 43.6 % Normal 36.0-75.0 [facility] Comment on above: Order Comment: Order Added by Discern Expert. Performed By: #### 2 867457, 69596749, 2428398, 8679316, 98390003, 45715944, 5777299, 9172026 ####[facility] [address] [place] [address] Neutrophils/Leukocytes Auto (Bld) [Pure # fraction] 2.9 E9/L Normal 2.0-7.5 [facility] Comment on above: Order Comment: Order Added by Pearl Expert. Performed By: #### 2 470023, 03091222, 5941064, 1770443, 46757658, 21391430, 7515799, 4395516 ####[facility] [address] [place] [address] [facility] 02-17-2023 Creatinine [Mass/Vol] 1.1 mg/dL Normal 0.5-1.3 [facility] Comment on above: Performed By: #### 2 184776, 61544763, 5050490, 9152047, 54238896, 94431757, 5726564, 3347662 ####[facility] [address] [place] [address] Urea nitrogen [Mass/Vol] 26 mg/dL High 5-21 [facility] Comment on above: Performed By: #### 2 152695, 58113554, 1396267, 2207810, 43095468, 14547352, 8330784, 4152441 ####[facility] [address] [place] [address] Urea nitrogen/Creatinine [Mass ratio] 24 No Units High 10-20 [facility] Comment on above: Performed By: #### 2 916376, 48583392, 9449017, 8410768, 21406181, 73648001, 3034996, 2170710 ####[facility] [address] [place] [address] Anion gap [Moles/Vol] 12 mmol/L Normal 6-16 [facility] Comment on above: Performed By: #### 2 902864, 90788078, 1994019, 5751610, 60248623, 00278126, 6153196, 8903786 ####[facility] [address] [place] [address] Calcium [Mass/Vol] 9.2 mg/dL Normal 8.9-11.1 [facility] Comment on above: Performed By: #### 2 847746, 34990720, 3545519, 6683506, 38108424, 17179396, 8248930, 2564222 ####[facility] [address] [place] [address] Chloride [Moles/Vol] 103 mmol/L Normal 101-111 [facility] Comment on above: Performed By: #### 2 909288, 32700426, 8330439, 4862850, 92832293, 57370781, 0468420, 9279544 ####[facility] [address] [place] [address] CO2 [Moles/Vol] 27 mmol/L Normal 21-31 [facility] Comment on above: Performed By: #### 2 637070, 54433003, 7072937, 0337177, 54485087, 45128101, 9920609, 7042699 ####[facility] [address] [place] [address] Glucose [Mass/Vol] 148 mg/dL Normal 55-199 [facility] Comment on above: Result Comment: If t his glucose result represents a fasting glucose, interpretation should refer to the following reference range: 55-99 mg/dL Performed By: #### 2 671946, 94855281, 4333929, 8921380, 64125686, 96488755, 7735327, 8975948 ####[facility] [address] [place] [address] Potassium [Moles/Vol] 4.3 mmol/L Normal 3.5-5.3 [facility] Comment on above: Performed By: #### 2 124567, 07274652, 7149683, 6928543, 26122541, 89968282, 0511872, 3219809 ####[facility] [address] [place] [address] Sodium [Moles/Vol] 138 mmol/L Normal 135-145 [facility] Comment on above: Performed By: #### 2 405404, 04212081, 0697326, 1460605, 89718382, 50854761, 2921633, 7133343 ####[address] [place] [address] Blood Gas Art, with Lytes, G kj, [place] 02-17-2023 a/A Ratio Art 86.90 % Normal >=0.80 [facility] Comment on above: Performed By: #### 4 [id number] ####[facility] [address] [place] [address] AaDO2 Art 13.6 mmHg Normal 5.0-15.0 [facility] Comment on above: Performed By: #### 4 87984420 ####[address] [place] [address] Allens Test Positive Normal [facility] Comment on above: Performed By: #### 4 54584205 ####[address] [place] [address] Base Excess Arterial 0.9 mmol/L Low >=2.8 [facility] Comment on above: Performed By: #### 4 39730149 ####[facility] [address] [place] [address] cCa2+ Art 4.86 mg/dL Normal 4.40-5.30 [facility] Comment on above: Performed By: #### 4 74207426 ####[facility] [address] [place] [address] cCl- Art 105.0 mmol/L Normal 101.0-111.0 [facility] Comment on above: Performed By: #### 4 69132352 ####[facility] [address] [place] [address] cGlu Art 118 mg/dL High 55-99 [facility] Comment on above: Performed By: #### 4 54822734 ####[facility] [address] [place] [address] cK+ Art 3.8 mmol/L Normal 3.5-5.3 [facility] Comment on above: Performed By: #### 4 06841447 ####[facility] [address] [place] [address] cLac Art .6 mmol/L Normal .5-2.2 [facility] Comment on above: Performed By: #### 4 12046837 ####[facility] [address] [place] [address] wardrobe technician+ Art 140.0 mmol/L Normal 135.0-145.0 [facility] Comment on above: Performed By: #### 4 89087863 ####[facility] [address] [place] [address] Drawn by FAISAL Invalid Interpretation Code [facility] Comment on above: Performed By: #### 4 [id number] ####[facility] [address] [place] [address] FCOHb Art 0.8 % Low 1.5-4.9 [facility] Comment on above: Result Comment: Refe rence rangeNonsmoker <1.5%Smoker <5.0%Heavy Smoker <9.0% Performed By: #### 4 45239067 ####[facility] [address] [place] [address] FIO2 BG 21 Invalid Interpretation Code [facility] Comment on above: Performed By: #### 4 99602609 ####[facility] [address] [place] [address] FMetHb Art 0.4 % Normal 0.0-1.9 [facility] Comment on above: Performed By: #### 4 72543941 ####[address] [place] [address] FO2Hb Art 97.0 % Normal 93.0-100.0 [facility] Comment on above: Performed By: #### 4 79575797 ####[address] [place] [address] HCO3 (Bld) [Moles/Vol] 25.2 mmol/L Normal 22.0-26.0 [facility] Comment on above: Performed By: #### 4 65431191 ####[address] [address] Hemoglobin (Bld) [Mass/Vol] 11.1 g/dL Low 12.0-17.0 [facility] Comment on above: Performed By: #### 4 48801574 ####[address] [address] Oxygen saturation in Blood 98.1 % Normal 95.0-100.0 [facility] Comment on above: Performed By: #### 4 77821690 ####[address] [place] [address] P CO2 Arterial 37.1 mmHg Normal 35.0-45.0 [facility] Comment on above: Performed By: #### 4 17185587 ####[address] [place] [address] P O2 Arterial 90.0 mmHg Normal 80.0-100.0 [facility] Comment on above: Performed By: #### 4 74280426 ####[address] [place] [address] pH Arterial 7.437 Normal 7.350-7.450 [facility] Comment on above: Performed By: #### 4 39030300 ####[facility] [address] [place] [address] Sample Site R Radial Normal [facility] Comment on above: Performed By: #### 4 97036252 ####[address] [address] Sample Type Arterial Draw Normal [facility] Comment on above: Performed By: #### 4 56151898 ####[address] CBC w/ Auto Diffon 3 Erythrocyte distribution width (RBC) [Ratio] 14.5 % High 10.9-14.2 [facility] Comment on above: Performed By: #### 2 384419, 54136958, 0940212, 8179493, 33810158, 23836617, 9527238, 4652431 ####[address] Hematocrit (Bld) [Volume fraction] 36.9 % Low 37.7-49.0 [facility] Comment on above: Performed By: #### 2 783470, 70640376, 6530529, 6190366, 04478744, 96605971, 7331320, 7613341 ####[address] [address] Hemoglobin (Bld) [Mass/Vol] 11.6 g/dL Low 13.5-17.5 [facility] Comment on above: Performed By: #### 2 462397, 96732046, 5052813, 0981604, 24137164, 67860899, 8893024, 5688114 ####[facility] [address] [place] [address] MCH (RBC) [Entitic mass] 27.5 pg Normal 27.0-34.0 [facility] Comment on above: Performed By: #### 2 360959, 48169742, 5911697, 9842232, 66341842, 99783236, 7403040, 4143130 ####[facility] [address] [place] [address] MCHC (RBC) [Mass/Vol] 31.3 g/dL Low 31.4-36.0 [facility] Comment on above: Performed By: #### 2 431958, 57534298, 3993784, 4730848, 51364381, 33558141, 6013451, 7248453 ####[address] [place] [address] MCV (RBC) [Entitic vol] 87.8 fL Normal 80.0-100.0 [facility] Comment on above: Performed By: #### 2 328307, 73163810, 8724030, 5321565, 03858764, 72423828, 9532186, 4672010 ####[address] [address] Platelet mean volume (Bld) [Entitic vol] 8.6 fL Normal 6.4-10.8 [facility] Comment on above: Performed By: #### 2 522772, 36084750, 2421024, 4226803, 85476158, 79633531, 7207330, 1668223 ####[address] [address] Platelets (Bld) [#/Vol] 185.0 E9/L Normal 150.0-500.0 [facility] Comment on above: Performed By: #### 2 690957, 41896425, 3401961, 6873209, 50585796, 31346836, 6516900, 5978610 ####[address] [place] [address] RBC (Bld) [#/Vol] 4.2 E12/L Low 4.3-5.9 [facility] Comment on above: Performed By: #### 2 830532, 77177261, 1170901, 1246890, 80138306, 77169460, 5829627, 7195120 ####[address] [place] [address] WBC corrected for nucl RBC Auto (Bld) [#/Vol] 6.8 E9/L Normal 4.0-11.0 [facility] Comment on above: Performed By: #### 2 557575, 15992943, 7903617, 4727627, 04232557, 41096456, 2589292, 4668090 ####[facility] [address] [place] [address] CT Head or Brain w/o Contras ton 02-17-2023 CT Head or Brain w/o Contrast Normal [facility] Consent for Treatmenton 02-02 Consent for Treatment [id number]#1. 00CD:127 Normal [facility] Discharge Instructionson Discharge Instructions [id number]#1. 00CD:127 Normal [facility] ED Clinical Summaryon 2022 ED Clinical Summary Normal [facility]-Physician[facility] 02-18-20 23 ED Note-Physician Normal [facility] Comment on above: Result Comment: Elec tronically Signed By: Tita Albright DO\.br\Date and Time Signed: 02/17/23 03:46 EDT ED Patient Education Noteon 02-17-2023 ED Patient Education Note Normal [facility] ED Patient Summaryon 023 ED Patient Summary Normal [facility] Hep Func Panelon 02-17-2023 Bilirubin.indirect [Mass or moles/Vol] UTC Abnormal 0.1-0.9 [facility] Comment on above: Result Comment: Resu lt verified by Discern Rule. Performed result UTC (Unable to Calculate) was sent as an Alpha code due the inability to calculate a valid numeric value. Performed By: #### 2 802777, 67540865, 8507443, 9355326, 71367691, 15371327, 1889596, 7223578 ####[facility] [address] [place] [address] Albumin [Mass/Vol] 3.7 g/dL Normal 3.3-5.0 [facility] Comment on above: Performed By: #### 2 387733, 19127144, 7232913, 1461682, 10193684, 77458990, 6525508, 3785629 ####[facility] [address] [place] [address] Albumin/Globulin (S) [Mass conc ratio] 1.3 Normal 1.1-2.2 [facility] Comment on above: Performed By: #### 2 615050, 73359196, 9205830, 6492785, 91041357, 99670971, 4697943, 9555999 ####[address] [place] [address] ALP [Catalytic activity/Vol] 62 Int._Unit/L Normal 21-98 [facility] Comment on above: Performed By: #### 2 880911, 13081049, 5073136, 2423071, 55749856, 67320563, 2234352, 6533880 ####[facility] [address] [place] [address] ALT No additional P-5'-P [Catalytic activity/Vol] 15 Int._Unit/L Normal 6-46 [facility] Comment on above: Performed By: #### 2 342623, 02258630, 5600745, 7784285, 22725939, 04765218, 4372412, 9693559 ####[facility] [address] [place] [address] AST [Catalytic activity/Vol] 20 Int._Unit/L Normal 5-43 [facility] Comment on above: Performed By: #### 2 850909, 05201171, 7728822, 8971026, 98481023, 50778185, 1202116, 3647486 ####[facility] [address] [place] [address] Bilirubin [Mass/Vol] 0.3 mg/dL Normal 0.0-1.1 [facility] Comment on above: Performed By: #### 2 032935, 96622489, 4922762, 0014542, 22630189, 70173159, 4136502, 4254702 ####[facility] [address] [place] [address] Globulin (S) [Mass/Vol] 2.9 g/dL Normal 1.4-4.0 [facility] Comment on above: Performed By: #### 2 428885, 72999690, 1911890, 0075875, 76472528, 72159712, 5955275, 4932127 ####[address] [place] [address] Protein [Mass/Vol] 6.6 g/dL Normal 6.0-7.8 [facility] Comment on above: Performed By: #### 2 675355, 82012844, 6153555, 8745799, 59400469, 62622535, 8370381, 4396428 ####[address] [place] [address] Bilirubin.direct [Mass/Vol] mg/dL Normal 0.1-0.4 [facility] Comment on above: Performed By: #### 2 176374, 42029480, 6534640, 2150515, 83322088, 18584020, 8041260, 0554714 ####[address] [place] [address] Magnesiumon 02-17-2023 Magnesium [Mass/Vol] 1.7 mg/dL Normal 1.3-2.4 [facility] Comment on above: Performed By: #### 2 579506, 78221781, 8049130, 7103627, 14656969, 68683857, 4824728, 7400789 ####[facility] [address] [place] [address] Monitor Recordon 02-17-2023 Monitor Record [id number]#1. 00CD:127 Normal [facility] Monitor Record [id number]#1. 00CD:127 Normal [facility] Mcc Recordson 02-17 Mcc Records [id number]#1. 00CD:127 Normal [facility] PT & PTTon 02-17-2023 aPTT Coag (PPP) [Time] 31.5 second(s) Normal 25.1-36.5 [facility] Comment on above: Result Comment: Para meter 15 days - 4 weeks 1 - 5 months 6 - 11 months 1 - 5 years 6 - 10 years 11 - 17 years PTT Mean: 35.4 (27.6-45.6) Mean: 33.5 (24.8-40.7) Mean: 32.4 (25.1-40.7) Mean: 31.6 (24.0-39.2) Mean: 31.6 (26.9-38.7) Mean: 31.0 (24.6-38.4) Pediatric Reference ranges were obtained from a study by Param Ruiz et al. prepared from 1437 samples obtained at 7 different centers using the same coagulation reagent and instrumentation as [facility]. Currently there are no coagulation studies available worldwide for children to 14 days, and no normal ranges. Heparin therapeutic range (represented by Anti-Factor Xa activity of 0.2 - 0.4 U/mL) corresponds to PTT of 56.6 - 109.0 sec. Performed By: #### 2 564478, 84284909, 8336861, 7609976, 93185944, 66166404, 8057740, 0665182 ####[facility] [address] [place] [address] INR Coag (PPP) [Relative time] 1.0 {INR} Invalid Interpretation Code [facility] Comment on above: Result Comment: INR results are specifically intended to assess patients stabilized on long-term Anticoagulation therapy suggested INR?s ?Less Intensive Anticoagulation? 2.0 ? 3.0Conventional Range 3.0 ? 4.5 Performed By: #### 2 415428, 31727822, 2115894, 8391904, 63454057, 11239886, 3904081, 8947790 ####[facility] [address] [place] [address] PT Coag (PPP) [Time] 11.1 second(s) Normal 9.4-12.5 [facility] Comment on above: Result Comment: 15 d ays - 4 weeks 1 - 5 months 6 -11 months 1 ? 5 years 6 ? 10 years 11 -17 years Mean: 11.2 (9.5 ? 12.6) Mean: 11.0 (9.7 ? 12.8) Mean: 11.0 (9.8 ? 13.0) Mean: 11.3 (9.9 ? 13.4) Mean: 11.7 (10.0 ? 14.6) Mean: 11.8 (10.0 - 14.1) Pediatric Reference ranges were obtained from a study by Param Ruiz et al. prepared from 1437 samples obtained at 7 different centers using the same coagulation reagent and instrumentation as [facility]. Currently there are no coagulation studies available worldwide for children to 14 days, and no normal ranges. Performed By: #### 2 270715, 50632877, 8640255, 2472642, 17139763, 21421233, 1273530, 7558451 ####[facility] [address] [place] [address] Pre-Arrival Noteon 3 Pre-Arrival Note Normal [facility] RAD - Preliminary Cat Scan R eporton 02-17-2023 RAD - Preliminary Cat Scan Report [id number]#1.0 0CD:127 Normal [facility] Transfer Documentson 023 Transfer Documents [id number]#1. 00CD:127 Normal [facility] Troponin 0 Hr.on 02-17-2023 Troponin I.cardiac [Mass/Vol] 5.80 pg/mL Low 15.90-38.40 [facility] Comment on above: Result Comment: The 95% CI (Confidence Interval) PPV (Positive Predictive Value) for myocardial infarction in females is 38 pg/mL, in males 51 pg/mL. The results should be used in conjunction with clinical conditions of myocardial infarction.(Access High Sensitivity Troponin I Instructions For Use, [employer], May 2018) Performed By: #### 2 188648, 37514539, 2232538, 5541903, 86378079, 48028037, 4897410, 9492469 ####[facility] [address] [place] [address] Troponin 3 Hr.on 02-17-2023 Troponin I.cardiac [Mass/Vol] 6.30 pg/mL Low 15.90-38.40 [facility] Comment on above: Result Comment: The 95% CI (Confidence Interval) PPV (Positive Predictive Value) for myocardial infarction in females is 38 pg/mL, in males 51 pg/mL. The results should be used in conjunction with clinical conditions of myocardial infarction.(Access High Sensitivity Troponin I Instructions For Use, [employer], May 2018) Performed By: #### 1 9794249 ####[address] [place] [address] XR Chest Single Viewon 02-17 XR Chest Single View Normal [facility] eGFRon 02-17-2023 GFR/1.73 sq M.predicted among non-blacks MDRD (S/P/Bld) [Vol rate/Area] 73 mL/min/1.73 m2 Normal >=59 [facility] Comment on above: Order Comment: Order added by Discern Expert. Result Comment: Hospice Care Transitions Coordinator lokesh kidney disease could be indicated at eGFR's of less than 60 mL/min/1.73m2. Kidney failure is indicated at less than 15 mL/min/1.73m2. Performed By: #### 2 399593, 78997592, 8938495, 2066337, 40743198, 18405481, 9855442, 2394873 ####[facility] [address] [place] [address] Discharge Instructionson Discharge Instructions [id number]#1.0 0CD:127 Normal [facility] Transfer Documentson 023 Transfer Documents [id number]#1.0 0CD:127 Normal [facility] CHEMISTRYOrdered By: Lab ROP User on 02-14-2023 Glucose [Mass/Vol] 112 mg/dL High 55 - 99 mg/dL [facility] POC Subsection Comment on above: Result Comment: Clemente MCCLAIN POC Device SN [id number] Invalid Interpretation Code [facility] POC Subsection POC User ID [id number] Invalid Interpretation Code [facility] POC Subsection POC Username JONH MOCTEZUMA Invalid Interpretation Code [facility] POC Subsection Capillary Glucose POCon 02-02 Glucose [Mass/Vol] 112 mg/dL High 55-99 [facility] Comment on above: Result Comment: Clemente MCCLAIN Performed By: #### 2 [id number] ####[facility] [address] [place] [address] Cortisolon 02-14-2023 Cortisol [Mass/Vol] 18.8 microgram/dL Invalid Interpretation Code 6.2-19.4 [facility] Comment on above: Result Comment: Plea se Note: The reference interval and flagging forthis test is for an AM collection. If this is a PMcollection please use: Cortisol PM: 2.3-11.9Performed at: [facility] [address] [place], [place] [id number] PhD Desmond Jimenez Performed By: #### 2 515831 ####[facility] [address] [place] [address] Cortisol [Mass/Vol] 22.4 microgram/dL High 6.2-19.4 [facility] Comment on above: Result Comment: Plea se Note: The reference interval and flagging forthis test is for an AM collection. If this is a PMcollection please use: Cortisol PM: 2.3-11.9Performed at: [facility] [address] [place] [address] [id number] PhD Desmond Jimenez Performed By: #### 2 993415 ####[facility] [address] [place] [address] Inpatient Patient Summaryon 02-14-2023 Inpatient Patient Summary Normal [facility] Interdisciplinary Note - Hermelindo e Manageron 02-14-2023 Interdisciplinary Note - Oncology Registrar Patient was discharged back to [facility] prior to CRM seeing. Daughter transported. Normal [facility] Comment on above: Result Comment: Elec tronically Signed By: Tommie GONZALEZ, Meredith\.br\Date and Time Signed: 02/14/23 13:43 EDT Monitor Recordon 02-14-2023 Monitor Record [id number]#1. 00CD:127 Normal [facility] Monitor Record [id number]#1. 00CD:127 Normal [facility] Monitor Record [id number]#1. 00CD:127 Normal [facility] Ammoniaon 02-13-2023 Ammonia (P) [Moles/Vol] 18 mcmol Normal 11-35 [facility] Comment on above: Performed By: #### 1 8437055, 0710211, 8868509, 5945757, 93485783, 4715613, 8067218, 43404005 ####[facility] [address] [place] [address] Auto Diffon 02-13-2023 Basophils/100 WBC (Bld) 0.9 % Normal 0.0-2.0 [facility] Comment on above: Order Comment: Order Added by Discern Expert. Performed By: #### 1 0092845, 0722282, 9721819, 1577129, 62271395, 5126696, 9931717, 59513147 ####[facility] [address] [place] [address] Basophils/Leukocytes Auto (Bld) [Pure # fraction] 0.1 E9/L Normal 0.0-0.2 [facility] Comment on above: Order Comment: Order Added by Discern Expert. Performed By: #### 1 2417602, 6253183, 7483133, 6719362, 04006706, 8968989, 4296573, 40029097 ####[address] [place] [address] Eosinophils/100 WBC (Bld) 7.2 % Normal 0.0-8.0 [facility] Comment on above: Order Comment: Order Added by Discern Expert. Performed By: #### 1 7043710, 4331323, 7464991, 0677838, 55903709, 6555238, 6302616, 37234923 ####[address] [place] [address] Eosinophils/Leukocytes Auto (Bld) [Pure # fraction] 0.4 E9/L Normal 0.0-0.5 [facility] Comment on above: Order Comment: Order Added by Discern Expert. Performed By: #### 1 5570222, 1209288, 9108061, 2814179, 43165304, 1378701, 6816639, 59230541 ####[address] [address] Lymphocytes/100 WBC (Bld) 38.5 % Normal 14.0-50.0 [facility] Comment on above: Order Comment: Order Added by Discern Expert. Performed By: #### 1 0835842, 4186974, 5657254, 5511214, 38287073, 4831377, 2680689, 98174403 ####[address] [place] [address] Lymphocytes/Leukocytes Auto (Bld) [Pure # fraction] 2.3 E9/L Normal 1.0-4.0 [facility] Comment on above: Order Comment: Order Added by Discern Expert. Performed By: #### 1 1720439, 8995488, 9142991, 9393753, 78003243, 6331503, 2764557, 93906374 ####[address] [address] Monocytes/100 WBC (Bld) 7.2 % Normal 4.0-14.0 [facility] Comment on above: Order Comment: Order Added by Discern Expert. Performed By: #### 1 1416359, 2568268, 3621905, 3549665, 43415183, 0371732, 3035583, 75213990 ####[facility] [address] [place] [address] Monocytes/Leukocytes Auto (Bld) [Pure # fraction] 0.4 E9/L Normal 0.2-1.0 [facility] Comment on above: Order Comment: Order Added by Discern Expert. Performed By: #### 1 6875672, 4453187, 4215071, 8985400, 23364499, 5198075, 6690577, 95722242 ####[address] [place] [address] Neutrophils/100 WBC (Bld) 46.2 % Normal 36.0-75.0 [facility] Comment on above: Order Comment: Order Added by Discern Expert. Performed By: #### 1 6054545, 4809598, 7926601, 8882139, 88985387, 9958906, 9226087, 54081250 ####[facility] [address] [place] [address] Neutrophils/Leukocytes Auto (Bld) [Pure # fraction] 2.7 E9/L Normal 2.0-7.5 [facility] Comment on above: Order Comment: Order Added by Discern Expert. Performed By: #### 1 1920308, 4820348, 6997835, 3343439, 37926728, 6301452, 6382718, 65112893 ####[facility] [address] [place] [address] BMP 02-13-2023 Creatinine [Mass/Vol] 1.2 mg/dL Normal 0.5-1.3 [facility] Comment on above: Performed By: #### 1 8251936, 0024999, 3635026, 3200212, 59863889, 3620162, 8785066, 97102119 ####[facility] [address] [place] [address] Urea nitrogen [Mass/Vol] 41 mg/dL High 5-21 [facility] Comment on above: Performed By: #### 1 6391770, 1433178, 1325718, 9980269, 55818705, 8694760, 6824350, 83830998 ####[facility] [address] [place] [address] Urea nitrogen/Creatinine [Mass ratio] 34 No Units High 10-20 [facility] Comment on above: Performed By: #### 1 8202987, 7735760, 4419297, 5377504, 52716948, 8566923, 5595200, 49417174 ####[facility] [address] [place] [address] Anion gap [Moles/Vol] 12 mmol/L Normal 6-16 [facility] Comment on above: Performed By: #### 1 0932965, 7371459, 4687786, 5511831, 90155381, 4630293, 6354720, 47383810 ####[facility] [address] [place] [address] Calcium [Mass/Vol] 9.1 mg/dL Normal 8.9-11.1 [facility] Comment on above: Performed By: #### 1 2074983, 0521585, 6530713, 5921659, 52350601, 9363307, 8228134, 62232507 ####[facility] [address] [place] [address] Chloride [Moles/Vol] 102 mmol/L Normal 101-111 [facility] Comment on above: Performed By: #### 1 2598568, 9084952, 3262513, 6440584, 58275387, 5696253, 2807613, 10091104 ####[facility] [address] [place] [address] CO2 [Moles/Vol] 26 mmol/L Normal 21-31 [facility] Comment on above: Performed By: #### 1 9830403, 1231292, 0369569, 3905012, 50840266, 8392101, 4219237, 33069724 ####[facility] [address] [place] [address] Glucose [Mass/Vol] 128 mg/dL Normal 55-199 [facility] Comment on above: Result Comment: If t his glucose result represents a fasting glucose, interpretation should refer to the following reference range: 55-99 mg/dL Performed By: #### 1 6679435, 8236900, 5963078, 4323555, 57408502, 7676870, 1760352, 24041472 ####[facility] [address] [place] [address] Potassium [Moles/Vol] 4.2 mmol/L Normal 3.5-5.3 [facility] Comment on above: Performed By: #### 1 9368375, 9239909, 2737748, 2552927, 06797487, 6760613, 2256243, 28148077 ####[facility] [address] [place] [address] Sodium [Moles/Vol] 136 mmol/L Normal 135-145 [facility] Comment on above: Performed By: #### 1 8348395, 2814918, 2258817, 3161268, 97719259, 1165770, 5603242, 79280978 ####[facility] [address] [place] [address] Blood Gas Art, with Lytes, G kj, [place] 02-13-2023 a/A Ratio Art 79.30 % Normal >=0.80 [facility] Comment on above: Performed By: #### 4 15001966 ####[facility] [address] [place] [address] AaDO2 Art 19.4 mmHg High 5.0-15.0 [facility] Comment on above: Performed By: #### 4 [id number] ####[facility] [address] [place] [address] Allens Test Positive Normal [facility] Comment on above: Performed By: #### 4 [id number] ####[facility] [address] [place] [address] Base Excess Arterial 1.7 mmol/L Low >=2.8 [facility] Comment on above: Performed By: #### 4 [id number] ####[facility] [address] [place] [address] cCa2+ Art 4.95 mg/dL Normal 4.40-5.30 [facility] Comment on above: Performed By: #### 4 [id number] ####[facility] [address] [place] [address] cCl- Art 102.0 mmol/L Normal 101.0-111.0 [facility] Comment on above: Performed By: #### 4 [id number] ####[facility] [address] [place] [address] cGlu Art 127 mg/dL High 55-99 [facility] Comment on above: Performed By: #### 4 [id number] ####[address] [address] cK+ Art 3.9 mmol/L Normal 3.5-5.3 [facility] Comment on above: Performed By: #### 4 [id number] ####[address] [address] cLac Art .4 mmol/L Low .5-2.2 [facility] Comment on above: Performed By: #### 4 [id number] ####[address] [place] [address] wardrobe technician+ Art 140.0 mmol/L Normal 135.0-145.0 [facility] Comment on above: Performed By: #### 4 [id number] ####[facility] [address] [place] [address] Drawn by tmj Invalid Interpretation Code [facility] Comment on above: Performed By: #### 4 [id number] ####[address] [place] [address] FCOHb Art 2.0 % Normal 1.5-4.9 [facility] Comment on above: Result Comment: Refe rence rangeNonsmoker <1.5%Smoker <5.0%Heavy Smoker <9.0% Performed By: #### 4 [id number] ####[facility] [address] [place] [address] FIO2 BG 21 Invalid Interpretation Code [facility] Comment on above: Performed By: #### 4 [id number] ####[address] [place] [address] FMetHb Art 0.9 % Normal 0.0-1.9 [facility] Comment on above: Performed By: #### 4 [id number] ####[address] [place] [address] FO2Hb Art 92.2 % Low 93.0-100.0 [facility] Comment on above: Performed By: #### 4 [id number] ####[address] [address] HCO3 (Bld) [Moles/Vol] 25.8 mmol/L Normal 22.0-26.0 [facility] Comment on above: Performed By: #### 4 [id number] ####[address] [address] Hemoglobin (Bld) [Mass/Vol] 10.7 g/dL Low 12.0-17.0 [facility] Comment on above: Performed By: #### 4 [id number] ####[address] [address] Oxygen saturation in Blood 95.0 % Normal 95.0-100.0 [facility] Comment on above: Performed By: #### 4 [id number] ####[address] [address] P CO2 Arterial 45.9 mmHg High 35.0-45.0 [facility] Comment on above: Performed By: #### 4 [id number] ####[address] [address] P O2 Arterial 74.6 mmHg Low 80.0-100.0 [facility] Comment on above: Performed By: #### 4 [id number] ####[facility] [address] pH Arterial 7.381 Normal 7.350-7.450 [facility] Comment on above: Performed By: #### 4 [id number] ####[facility] [address] [place] [address] Sample Site R Radial Normal [facility] Comment on above: Performed By: #### 4 [id number] ####[facility] [address] [place] [address] Sample Type Arterial Draw Normal [facility] Comment on above: Performed By: #### 4 [id number] ####[facility] [address] [place] [address] CBC w/ Auto Diffon Erythrocyte distribution width (RBC) [Ratio] 14.4 % High 10.9-14.2 [facility] Comment on above: Performed By: #### 1 8834959, 1961154, 1796347, 7762435, 40040750, 9374211, 2268422, 07505446 ####[facility] [address] [place] [address] Hematocrit (Bld) [Volume fraction] 35.4 % Low 37.7-49.0 [facility] Comment on above: Performed By: #### 1 3759214, 0816050, 2548425, 9068743, 64305858, 8220337, 9008645, 62392484 ####[facility] [address] [place] [address] Hemoglobin (Bld) [Mass/Vol] 11.6 g/dL Low 13.5-17.5 [facility] Comment on above: Performed By: #### 1 8993648, 0779697, 5254496, 9341371, 16727971, 3731690, 6129411, 82865980 ####[facility] [address] [place] [address] MCH (RBC) [Entitic mass] 28.3 pg Normal 27.0-34.0 [facility] Comment on above: Performed By: #### 1 1831992, 1853799, 9082559, 8142750, 78954349, 8402836, 2014794, 09228893 ####[facility] [address] [place] [address] MCHC (RBC) [Mass/Vol] 32.9 g/dL Normal 31.4-36.0 [facility] Comment on above: Performed By: #### 1 9941517, 9024019, 5623480, 4902772, 92624855, 4286276, 9645925, 36264270 ####[address] [place] [address] MCV (RBC) [Entitic vol] 85.9 fL Normal 80.0-100.0 [facility] Comment on above: Performed By: #### 1 3081078, 6897663, 0542145, 7831608, 87294745, 7905443, 4695745, 97170260 ####[facility] [address] [place] [address] Platelet mean volume (Bld) [Entitic vol] 9.5 fL Normal 6.4-10.8 [facility] Comment on above: Performed By: #### 1 5104743, 0614918, 8521452, 5788331, 83698708, 3640242, 9462875, 59897671 ####[facility] [address] [place] [address] Platelets (Bld) [#/Vol] 195.0 E9/L Normal 150.0-500.0 [facility] Comment on above: Performed By: #### 1 0951091, 2767512, 2657762, 3161006, 70151602, 8170489, 9690331, 64913295 ####[facility] [address] [place] [address] RBC (Bld) [#/Vol] 4.1 E12/L Low 4.3-5.9 [facility] Comment on above: Performed By: #### 1 8527338, 0501625, 1368898, 7020699, 37036312, 0131163, 6039489, 57406224 ####[facility] [address] [place] [address] WBC corrected for nucl RBC Auto (Bld) [#/Vol] 5.9 E9/L Normal 4.0-11.0 [facility] Comment on above: Performed By: #### 1 4129738, 9750219, 9862079, 6521646, 02867873, 7649050, 2956805, 13670935 ####[facility] [address] [place] [address] CHEMISTRYOrdered By: Lab ROP User on 02-13-2023 Glucose [Mass/Vol] 100 mg/dL High 55 - 99 mg/dL [facility] POC Subsection Comment on above: Result Comment: Clemente christopher RN/ POC Device SN [id number] Invalid Interpretation Code [facility] POC Subsection POC User ID [id number] Invalid Interpretation Code [facility] POC Subsection POC Username PALAK PEREIRA Invalid Interpretation Code [facility] POC Subsection Glucose [Mass/Vol] 124 mg/dL High 55 - 99 mg/dL [facility] POC Subsection POC Device SN [id number] Invalid Interpretation Code [facility] POC Subsection POC User ID [id number] Invalid Interpretation Code [facility] POC Subsection POC Username CHRIS BARRERA Invalid Interpretation Code [facility] POC Subsection CHEMISTRYOrdered By: SYSTEM SYSTEM on 02-13-2023 Troponin I.cardiac [Mass/Vol] 6.60 pg/mL Low 15.90 - 38.40 pg/mL [facility] Remisol Amphetamines Screen method >1000 ng/mL Ql (U) Negative (02/13/23 3:34 AM) Normal Negative [facility] Remisol Barbiturates Screen Ql (U) Negative (02/13/23 3:34 AM) Normal Negative [facility] Remisol Benzodiazepines Ql (U) Negative (02/13/23 3:34 AM) Normal Negative [facility] Remisol Cocaine Ql (U) Negative (02/13/23 3:34 AM) Normal Negative [facility] Remisol Opiates Screen Ql (U) Negative (02/13/23 3:34 AM) Normal Negative [facility] Remisol Phencyclidine Screen method >25 ng/mL Ql (U) Negative (02/13/23 3:34 AM) Normal Negative [facility] Remisol Tetrahydrocannabinol Screen method >50 ng/mL Ql (U) Negative (02/13/23 3:34 AM) Normal Negative [facility] Remisol Albumin [Mass/Vol] 3.7 g/dL Normal 3.3 - 5.0 gm/dL [facility] Remisol Albumin/Globulin [Mass ratio] 1.2 {ratio} Normal 1.1 - 2.2 [facility]isol ALP [Catalytic activity/Vol] 63 [iU]/d Normal 21 - 98 Int._Unit/L [facility] ALT No additional P-5'-P [Catalytic activity/Vol] 10 [iU]/d Normal 6 - 46 Int._Unit/L [facility] Ammonia (P) [Moles/Vol] 18 umol Normal 11 - 35 mcmol [facility] Anion gap [Moles/Vol] 12 mmol/L Normal 6 - 16 mEq/L [facility] AST [Catalytic activity/Vol] 13 [iU]/d Normal 5 - 43 Int._Unit/L [facility] Bilirubin [Mass/Vol] 0.6 mg/dL Normal 0.0 - 1 .1 mg/dL [facility] Bilirubin.direct [Mass/Vol] 0.1 mg/dL Normal 0.1 - 0.4 mg/dL [facility] Remisol Bilirubin.indirect [Mass or moles/Vol] 0.5 mg/dL Normal 0.1 - 0.9 mg/dL [facility] Calcium [Mass/Vol] 9.1 mg/dL Normal 8.9 - 11. 1 mg/dL [facility] Chloride [Moles/Vol] 102 mmol/L Normal 101 - 1 11 mmol/L [facility] CO2 [Moles/Vol] 26 mmol/L Normal 21 - 31 mmol/L [facility] Creatinine [Mass/Vol] 1.2 mg/dL Normal 0.5 - 1.3 mg/dL [facility] GFR/1.73 sq M.predicted among non-blacks MDRD (S/P/Bld) [Vol rate/Area] 65 mL/min/1.73 m2 Normal >=59mL/min/1 .73 m2 [facility] Chem S Globulin (S) [Mass/Vol] 3.0 g/dL Normal 1.4 - 4.0 gm/dL [facility] Glucose [Mass/Vol] 128 mg/dL Normal 55 - 199 mg/dL [facility] Potassium [Moles/Vol] 4.2 mmol/L Normal 3.5 - 5.3 mmol/L [facility] Protein [Mass/Vol] 6.7 g/dL Normal 6.0 - 7.8 gm/dL [facility] Sodium [Moles/Vol] 136 mmol/L Normal 135 - 145 mmol/L [facility] Troponin I.cardiac [Mass/Vol] 5.80 pg/mL Low 15.90 - 38.40 pg/mL [facility] Urea nitrogen [Mass/Vol] 41 mg/dL High 5 - 21 mg/dL [facility] Urea nitrogen/Creatinine [Mass ratio] 34 mg/mg High 10 - 20 [facility] Ethanol [Mass/Vol] mg/dL Normal <=7mg/dL [facility] R emisol COAGULATIONOrdered By: Gilmer Coronado on 02-13-2023 aPTT Coag (PPP) [Time] 31.8 s Normal 25.1 - 36.5 second(s) [facility] Auto Coag INR Coag (PPP) [Relative time] 1.1 {INR} Invalid Interpretation Code [facility] Auto Coag PT Coag (PPP) [Time] 11.9 s Normal 9.4 - 1 2.5 second(s) [facility] Auto Coag CT Head or Brain w/o Contras ton 02-13-2023 CT Head or Brain w/o Contrast Normal [facility] Capillary Glucose POCon 02-02 Glucose [Mass/Vol] 100 mg/dL High 55-99 [facility] Comment on above: Result Comment: Clemente christopher RN/ Performed By: #### 2 [id number] ####[facility] [address] [place] [address] Glucose [Mass/Vol] 124 mg/dL High 55-99 [facility] Comment on above: Performed By: #### 2 [id number] ####[facility] [address] [place] [address] Consent for Treatmenton 02-02 Consent for Treatment [id number]#1. 00CD:127 Normal [facility] Consultation Noteon 02-14-20 Consultation Note Normal [facility] Comment on above: Result Comment: Elec tronically Signed By: Torey LEMONS, Mahesh Johns\.br\Date and Time Signed: 02/13/23 11:13 EDT DNR - Do Not Resuscitateon 0 02-13-2023 DNR - Do Not Resuscitate [id number]#1.0 0CD:127 Normal [facility] ED Clinical Summaryon 2022 ED Clinical Summary Normal [facility] ED Note-Physicianon 02-14-20 ED Note-Physician Normal [facility] Comment on above: Result Comment: Elec tronically Signed By: Jalen Danielle MD\.br\Date and Time Signed: 02/13/23 06:18 EDT ED Patient Education Noteon 02-13-2023 ED Patient Education Note Normal [facility] ED Patient Summaryon 023 ED Patient Summary Normal [facility] Ethanolon 02-13-2023 Ethanol [Mass/Vol] mg/dL Normal <=7 [facility] Comment on above: Performed By: #### 2 [id number] ####[facility] [address] [place] [address] FT Blood GasesOrdered By: Rex Ravi on 02-13-2023 a/A Ratio Art 79.30 % Normal >=0.80% [facility] Resp Auto SS AaDO2 Art 19.4 mm[Hg] High 5.0 - 15.0 mmHg [facility] Resp Auto SS Allens Test Positive (02/13/23 1:02 AM) Normal [facility] Resp Auto SS Base Excess Arterial 1.7 mmol/L Low >=2.8mmol/L [facility] C Resp Auto SS cCa2+ Art 4.95 mg/dL Normal 4.40 - 5.30 mg/dL [facility] Resp Auto SS cCl- Art 102.0 mmol/L Normal 101.0 - 111.0 mmol/L [facility] Resp Auto SS cGlu Art 127 mg/dL High 55 - 99 mg/dL [facility] Resp Auto SS cK+ Art 3.9 mmol/L Normal 3.5 - 5.3 mmol/L [facility] Resp Auto SS cLac Art 0.4 mmol/L Low 0.5 - 2.2 mmol/L [facility] Resp Auto SS wardrobe technician+ Art 140.0 mmol/L Normal 135.0 - 145.0 mmol/L [facility] Resp Auto SS Drawn by tmj Invalid Interpretation Code [facility] Resp Auto SS FCOHb Art 2.0 % Normal 1.5 - 4.9 % [facility] Resp Auto SS FIO2 BG 21 Invalid Interpretation Code [facility] Resp Auto SS FMetHb Art 0.9 % Normal 0.0 - 1.9 % [facility] Resp Auto SS FO2Hb Art 92.2 % Low 93.0 - 100.0 % [facility] Resp Auto SS HCO3 (Bld) [Moles/Vol] 25.8 mmol/L Normal 22.0 - 26.0 mmol/L [facility] Resp Auto SS Hemoglobin (Bld) [Mass/Vol] 10.7 g/dL Low 12.0 - 17.0 gm/dL [facility] Resp Auto SS P CO2 Arterial 45.9 mm[Hg] High 35.0 - 45.0 mmHg [facility] Resp Auto SS P O2 Arterial 74.6 mm[Hg] Low 80.0 - 100.0 mmHg [facility] Resp Auto SS pH Arterial 7.381 Normal 7.350 - 7.450 [facility] Resp Auto SS Sample Site R Radial (02/13/23 1:02 AM) Normal [facility] Resp Auto SS Sample Type Arterial Draw (02/13/23 1:02 AM) Normal [facility] Resp Auto SS HEMATOLOGYOrdered By: SYSTEM SYSTEM on 02-13-2023 Basophils/100 WBC (Bld) 0.9 % Normal 0.0 - 2.0 % [facility] HemeAutoSS Basophils/Leukocytes Auto (Bld) [Pure # fraction] 0.1 E9/L Normal 0.0 - 0.2 E9/L [facility] HemeAutoSS Eosinophils/100 WBC (Bld) 7.2 % Normal 0.0 - 8.0 % [facility] HemeAutoSS Eosinophils/Leukocytes Auto (Bld) [Pure # fraction] 0.4 E9/L Normal 0.0 - 0.5 E9/L [facility] HemeAutoSS Lymphocytes/100 WBC (Bld) 38.5 % Normal 14.0 - 50.0 % [facility] HemeAutoSS Lymphocytes/Leukocytes Auto (Bld) [Pure # fraction] 2.3 E9/L Normal 1.0 - 4.0 E9/L [facility] HemeAutoSS Monocytes/100 WBC (Bld) 7.2 % Normal 4.0 - 14.0 % [facility] HemeAutoSS Monocytes/Leukocytes Auto (Bld) [Pure # fraction] 0.4 E9/L Normal 0.2 - 1.0 E9/L [facility] HemeAutoSS Neutrophils/100 WBC (Bld) 46.2 % Normal 36.0 - 75.0 % [facility] HemeAutoSS Neutrophils/Leukocytes Auto (Bld) [Pure # fraction] 2.7 E9/L Normal 2.0 - 7.5 E9/L [facility] HemeAutoSS HEMATOLOGYOrdered By: Gilmer Coronado on 02-13-2023 Erythrocyte distribution width (RBC) [Ratio] 14.4 % High 10.9 - 14.2 % [facility] HemeAutoSS Hematocrit (Bld) [Volume fraction] 35.4 % Low 37.7 - 49.0 % [facility] HemeAutoSS Hemoglobin (Bld) [Mass/Vol] 11.6 g/dL Low 13.5 - 17.5 gm/dL [facility] HemeAutoSS MCH (RBC) [Entitic mass] 28.3 pg Normal 27.0 - 34.0 pg [facility] HemeAutoSS MCHC (RBC) [Mass/Vol] 32.9 g/dL Normal 31.4 - 36.0 gm/dL [facility] HemeAutoSS MCV (RBC) [Entitic vol] 85.9 fL Normal 80.0 - 100.0 fL [facility] HemeAutoSS Platelet mean volume (Bld) [Entitic vol] 9.5 fL Normal 6.4 - 10.8 fL [facility] HemeAutoSS Platelets (Bld) [#/Vol] 195.0 E9/L Normal 150.0 - 500.0 E9/L [facility] HemeAutoSS RBC (Bld) [#/Vol] 4.1 E12/L Low 4.3 - 5.9 E12/L [facility] HemeAutoSS WBC corrected for nucl RBC Auto (Bld) [#/Vol] 5.9 E9/L Normal 4.0 - 11.0 E9/L [facility] HemeAutoSS Heart and Vascular Office/Cl inic Noteon 02-13-2023 Heart and Vascular Office/Clinic Note Normal [facility] Comment on above: Result Comment: Elec tronically Signed By: Bushra JIMENEZ CNP\magdalena\Date and Time Signed: 02/13/23 15:11 EDT Hep Func Panelon 02-13-2023 Albumin [Mass/Vol] 3.7 g/dL Normal 3.3-5.0 [facility] Comment on above: Performed By: #### 1 0803833, 8343603, 0463354, 9222719, 46102277, 5987378, 8894668, 95475922 ####[facility] [address] [place] [address] Albumin/Globulin (S) [Mass conc ratio] 1.2 Normal 1.1-2.2 [facility] Comment on above: Performed By: #### 1 4975037, 3813048, 0069295, 7321908, 35954310, 4604888, 5361474, 42320868 ####[facility] [address] [place] [address] ALP [Catalytic activity/Vol] 63 Int._Unit/L Normal 21-98 [facility] Comment on above: Performed By: #### 1 6543543, 0768807, 3725540, 6776733, 94901953, 3114416, 5872087, 31719542 ####[facility] [address] [place] [address] ALT No additional P-5'-P [Catalytic activity/Vol] 10 Int._Unit/L Normal 6-46 [facility] Comment on above: Performed By: #### 1 2375627, 1659026, 6043758, 2248842, 28579057, 4645875, 4531578, 78702879 ####[facility] [address] [place] [address] AST [Catalytic activity/Vol] 13 Int._Unit/L Normal 5-43 [facility] Comment on above: Performed By: #### 1 5841362, 0798969, 3132422, 9357193, 98455073, 4919734, 0868503, 65425721 ####[facility] [address] [place] [address] Bilirubin [Mass/Vol] 0.6 mg/dL Normal 0.0-1.1 [facility] Comment on above: Performed By: #### 1 6574147, 5406981, 7352903, 4884212, 98909840, 5770096, 5227911, 35844999 ####[facility] [address] [place] [address] Bilirubin.direct [Mass/Vol] 0.1 mg/dL Normal 0.1-0.4 [facility] Comment on above: Performed By: #### 1 3012478, 1718563, 3829374, 2613989, 12697855, 0553755, 8863472, 65617237 ####[facility] [address] [place] [address] Bilirubin.indirect [Mass or moles/Vol] 0.5 mg/dL Normal 0.1-0.9 [facility] Comment on above: Performed By: #### 1 0628432, 4285676, 1695288, 1344346, 61277700, 1453451, 1059306, 61405234 ####[facility] [address] [place] [address] Globulin (S) [Mass/Vol] 3.0 g/dL Normal 1.4-4.0 [facility] Comment on above: Performed By: #### 1 0688118, 2853836, 6757817, 9036345, 43868591, 3807521, 8336475, 57587098 ####[facility] [address] [place] [address] Protein [Mass/Vol] 6.7 g/dL Normal 6.0-7.8 [facility] Comment on above: Performed By: #### 1 0307819, 5039574, 8182907, 0386164, 84042619, 6224169, 5835696, 25212595 ####[facility] [address] [place] [address] Inpatient Clinical Summaryon 02-13-2023 Inpatient Clinical Summary Normal [facility] Inpatient Patient Summaryon 02-13-2023 Inpatient Patient Summary Normal [facility] Interdisciplinary Note - Hortensia n 02-13-2023 Interdisciplinary Note - OT Normal [facility] Interdisciplinary Note - PTo n 02-13-2023 Interdisciplinary Note - PT Normal [facility] LEVETIRACETAM, SERUM OR PLAS MAon 02-13-2023 Levetiracetam, S 40.4 ug/mL Critically high 10.0-40.0 [facility] Comment on above: Performed By: #### K DAV ####[facility] [address] [place], [place] [address]Np. Areli Yousif Monitor Recordon 02-13-2023 Monitor Record [id number]#1. 00CD:127 Normal [facility] Monitor Record [id number]#1. 00CD:127 Normal [facility] Monitor Record [id number]#1. 00CD:127 Normal [facility] Mcc Recordson 02-13 Mcc Records [id number]#1.0 0CD:127 Normal [facility] PT & PTTon 02-13-2023 aPTT Coag (PPP) [Time] 31.8 second(s) Normal 25.1-36.5 [facility] Comment on above: Result Comment: Para meter 15 days - 4 weeks 1 - 5 months 6 - 11 months 1 - 5 years 6 - 10 years 11 - 17 years PTT Mean: 35.4 (27.6-45.6) Mean: 33.5 (24.8-40.7) Mean: 32.4 (25.1-40.7) Mean: 31.6 (24.0-39.2) Mean: 31.6 (26.9-38.7) Mean: 31.0 (24.6-38.4) Pediatric Reference ranges were obtained from a study by jazmine Rojas prepared from 1437 samples obtained at 7 different centers using the same coagulation reagent and instrumentation as [facility]. Currently there are no coagulation studies available worldwide for children to 14 days, and no normal ranges. Heparin therapeutic range (represented by Anti-Factor Xa activity of 0.2 - 0.4 U/mL) corresponds to PTT of 56.6 - 109.0 sec. Performed By: #### 1 7759631, 7595995, 6541822, 8156429, 86085830, 0997651, 2201127, 72341920 ####[facility] [address] [place] [address] INR Coag (PPP) [Relative time] 1.1 {INR} Invalid Interpretation Code [facility] Comment on above: Result Comment: INR results are specifically intended to assess patients stabilized on long-term Anticoagulation therapy suggested INR?s ?Less Intensive Anticoagulation? 2.0 ? 3.0Conventional Range 3.0 ? 4.5 Performed By: #### 1 0768629, 1358949, 2507762, 9534708, 35490899, 1142104, 9019967, 65766348 ####[facility] [address] [place] [address] PT Coag (PPP) [Time] 11.9 second(s) Normal 9.4-12.5 [facility] Comment on above: Result Comment: 15 d ays - 4 weeks 1 - 5 months 6 -11 months 1 ? 5 years 6 ? 10 years 11 -17 years Mean: 11.2 (9.5 ? 12.6) Mean: 11.0 (9.7 ? 12.8) Mean: 11.0 (9.8 ? 13.0) Mean: 11.3 (9.9 ? 13.4) Mean: 11.7 (10.0 ? 14.6) Mean: 11.8 (10.0 - 14.1) Pediatric Reference ranges were obtained from a study by jazmine Rojas prepared from 1437 samples obtained at 7 different centers using the same coagulation reagent and instrumentation as [facility]. Currently there are no coagulation studies available worldwide for children to 14 days, and no normal ranges. Performed By: #### 1 7954753, 6189455, 6480692, 4904579, 29864589, 8806501, 9968268, 82726871 ####[facility] [address] [place] [address] Patient Education - Texton 0 02-13-2023 Patient Education - Text Normal [facility] RAD - Preliminary Cat Scan R eporton 02-13-2023 RAD - Preliminary Cat Scan Report [id number]#1.0 0CD:127 Normal [facility] Reference Laboratory Testing Ordered By: Generated DomainUser on 02-13-2023 Cortisol [Mass/Vol] 22.4 ug/dL High 6.2-19.4 mcg/ dL [facility] SendOutsSS Comment on above: Result Comment: Sandy denton Note: The reference interval and flagging for this test is for an AM collection. If this is a PM collection please use: Cortisol PM: 2.3-11.9 Performed at: [facility] [address] [id number] PhD Desmond Jimenez Cortisol [Mass/Vol] 18.8 ug/dL Invalid Interpretation Code 6.2-19.4mcg/ dL [facility] SendOutsSS Comment on above: Result Comment: Sandy denton Note: The reference interval and flagging for this test is for an AM collection. If this is a PM collection please use: Cortisol PM: 2.3-11.9 Performed at: [facility] [address] [id number] PhD Desmond Jimenez Troponin 0 Hr.on 02-13-2023 Troponin I.cardiac [Mass/Vol] 5.80 pg/mL Low 15.90-38.40 [facility] Comment on above: Result Comment: The 95% CI (Confidence Interval) PPV (Positive Predictive Value) for myocardial infarction in females is 38 pg/mL, in males 51 pg/mL. The results should be used in conjunction with clinical conditions of myocardial infarction.([employer] High Sensitivity Troponin I Instructions For Use, [employer], May 2018) Performed By: #### 1 4641572, 0381200, 5436689, 2517221, 79206640, 1927806, 7499850, 43937758 ####[facility] [address] [place] [address] Troponin 6 Hr.on 02-13-2023 Troponin I.cardiac [Mass/Vol] 6.60 pg/mL Low 15.90-38.40 [facility] Comment on above: Result Comment: The 95% CI (Confidence Interval) PPV (Positive Predictive Value) for myocardial infarction in females is 38 pg/mL, in males 51 pg/mL. The results should be used in conjunction with clinical conditions of myocardial infarction.([email or web address] High Sensitivity Troponin I Instructions For Use, [employer], May 2018) Performed By: #### 1 [id number] ####[place] [id number] U Drug Screenon 02-13-2023 Amphetamines Screen method >1000 ng/mL Ql (U) Negative Normal Negative [facility] Comment on above: Result Comment: Nega tive Cutoff: <1000 ng/mL Performed By: #### 2 [id number] ####[place] [address] Barbiturates Screen Ql (U) Negative Normal Negative [facility] Comment on above: Result Comment: Nega tive Cutoff: <200 ng/mL Performed By: #### 2 [id number] ####[address] [address] Benzodiazepines Ql (U) Negative Normal Negative [facility] Comment on above: Result Comment: Nega tive Cutoff: <200 ng/mL Performed By: #### 2 [id number] ####[address] [address] Cocaine Ql (U) Negative Normal Negative [facility] Comment on above: Result Comment: Nega tive Cutoff: <300 ng/mL Performed By: #### 2 [id number] ####[place] [id number] Opiates Screen Ql (U) Negative Normal Negative [facility] Comment on above: Result Comment: Nega tive Cutoff: <300 ng/mL Performed By: #### 2 820656 ####[facility] [address] [place] [address] Phencyclidine Screen method >25 ng/mL Ql (U) Negative Normal Negative [facility] Comment on above: Result Comment: Nega tive Cutoff: <25 ng/mLThese drug screen results are to be used for medical (i.e., treatment) purposes only. Unconfirmed drug screening results must not be used for non-medical purposes (e.g., employment testing, legal testing). Performed By: #### 2 [id number] ####[address] [address] Tetrahydrocannabinol Screen method >50 ng/mL Ql (U) Negative Normal Negative [facility] Comment on above: Result Comment: Nega tive Cutoff: <50 ng/mL Performed By: #### 2 [id number] ####[facility] [address] [place] [address] UA With Cult Reflexon 2022 Bacteria LM Ql (Urine sed) TRACE Normal Trace [facility] Comment on above: Performed By: #### 1 [id number] ####[address] [address] Bilirubin Ql (U) Negative Normal Negative [facility] Comment on above: Performed By: #### 1 1246970 ####[facility] [address] [place] [address] Clarity (U) CLEAR Normal Clear [facility] Comment on above: Performed By: #### 1 [id number] ####[place] [address] [place] [address] Color (U) YELLOW Normal Yellow [facility] Comment on above: Performed By: #### 1 [id number] ####[address] [address] Epithelial cells.squamous LM.HPF (Urine sed) [#/Area] 0-2 Normal 0-2 [facility] Comment on above: Performed By: #### 1 [id number] ####[address] [address] Glucose Test strip (U) [Mass/Vol] Negative Normal Negative [facility] Comment on above: Performed By: #### 1 [id number] ####[address] [address] Hemoglobin Ql (U) Negative Normal Negative [facility] Comment on above: Performed By: #### 1 5396791 ####[address] [address] Ketones (U) [Mass/Vol] Negative Normal Negative [facility] Comment on above: Performed By: #### 1 [id number] ####[address] [address] Mckinley.plasma/Mckinley .RBC (Bld) [Mass ratio] 0-3 Normal 0-3 [facility] Comment on above: Performed By: #### 1 [id number] ####[address] [address] Nitrite Ql (U) Negative Normal Negative [facility] Comment on above: Performed By: #### 1 [id number] ####[address] [address] pH (U) 6.0 [pH] Invalid Interpretation Code 5.0-9.0 [facility] Comment on above: Performed By: #### 1 3362339 ####[address] [address] Protein (U) [Mass/Vol] TRACE Abnormal Negative [facility] Comment on above: Performed By: #### 1 [id number] ####[address] [address] Specific gravity (U) [Rel density] 1.010 Invalid Interpretation Code 1.005-1.030 [facility] Comment on above: Performed By: #### 1 [id number] ####[facility] [address] [place] [address] Type of Urine collection method Catheter Normal [facility] Comment on above: Performed By: #### 1 [id number] ####[facility] [address] [place] [address] Urobilinogen Qn (U) 0.2 {Alyssia'U}/dL Normal 0.0-1.0 [facility] Comment on above: Performed By: #### 1 [id number] ####[facility] [address] [place] [address] WBC Auto Ql (U) Negative Normal Negative [facility] Comment on above: Performed By: #### 1 7466754 ####[facility] [address] [place] 4786657 WBC LM.HPF (Urine sed) [#/Area] 0-5 Normal 0-5 [facility] Comment on above: Performed By: #### 1 1894695 ####[facility] [address] [place] [address] URINALYSISOrdered By: Gilmer Coronado on 02-13-2023 Bacteria LM Ql (Urine sed) Trace /HPF Normal Trace/HPF FT UA Auto SS Bilirubin Ql (U) Negative (02/13/23 3:34 AM) Normal Negative [facility] UA Auto SS Clarity (U) Clear (02/13/23 3:34 AM) Normal Clear [facility] UA Auto SS Color (U) Yellow (02/13/23 3:34 AM) Normal Yellow [facility] UA Auto SS Epithelial cells.squamous LM.HPF (Urine sed) [#/Area] 0-2 /HPF Normal 0-2/HPF [facility] UA Aut o SS Glucose Test strip (U) [Mass/Vol] Negative (02/13/23 3:34 AM) Normal Negative [facility] UA Auto SS Hemoglobin Ql (U) Negative (02/13/23 3:34 AM) Normal Negative [facility] UA Auto SS Ketones (U) [Mass/Vol] Negative (02/13/23 3:34 AM) Normal Negative FT UA Auto SS Mckinley.plasma/Mckinley .RBC (Bld) [Mass ratio] 0-3 /HPF Normal 0-3/HPF [facility] UA Auto SS Nitrite Ql (U) Negative (02/13/23 3:34 AM) Normal Negative [facility] UA Auto SS pH (U) 6.0 *NA* (02/13/23 3:34 AM) Invalid Interpretation Code 5.0 - 9.0 [facility] UA Auto SS Protein (U) [Mass/Vol] Trace *ABN* (02/13/23 3:34 AM) Invalid Interpretation Code Negative [facility] UA Auto SS Specific gravity (U) [Rel density] 1.010 *NA* (02/13/23 3:34 AM) Invalid Interpretation Code 1.005 - 1.030 [facility] UA Auto SS UA Spec Desc Catheter (02/13/23 3:34 AM) Normal [facility] UA Auto SS Urobilinogen Qn (U) 0.9777016 {Alyssia'U}/dL Normal 0.0 - 1.0 EU/dL [facility] UA Auto SS WBC Auto Ql (U) Negative (02/13/23 3:34 AM) Normal Negative [facility] UA Auto SS WBC LM.HPF (Urine sed) [#/Area] 0-5 /HPF Normal 0-5/HPF [facility] UA Auto SS XR Chest Single Viewon 02-13 XR Chest Single View Normal [facility] eGFRon 02-13-2023 GFR/1.73 sq M.predicted among non-blacks MDRD (S/P/Bld) [Vol rate/Area] 65 mL/min/1.73 m2 Normal >=59 [facility] Comment on above: Order Comment: Order added by Discern Expert. Result Comment: Hospice Care Transitions Coordinator lokesh kidney disease could be indicated at eGFR's of less than 60 mL/min/1.73m2. Kidney failure is indicated at less than 15 mL/min/1.73m2. Performed By: #### 1 [id number], [id number], 8271009, 7988711, 60305205, 8185463, 2230992, 99741314 ####[facility] [address] [place] [address] CBC AUTO DIFFon 02-11-2023 BASO # 0.0 103/ul Normal 0.0-0.1 [facility] Comment on above: Performed By: #### C BC ####[facility] [address] [place] [address]Dr. Areli Yousif Basophils/100 WBC (Bld) 0.7 % Normal 0.2-2.0 [facility] Comment on above: Performed By: #### C BC ####[facility] [address] [place], [place] [address]Dr. Areli Yousif EO # 0.6 103/ul Normal 0.0-0.7 [facility] Comment on above: Performed By: #### C BC ####[facility] [address] [place], [place] [address]Dr. Areli Yousif Eosinophils/100 WBC (Bld) 9.1 % Critically high 0.9-7.0 [facility] Comment on above: Performed By: #### C BC ####[facility] [address] [place], [place] [address]Dr. Areli Yousif Erythrocyte distribution width (RBC) [Ratio] 13.2 % Normal 11.0-15.0 [facility] Comment on above: Performed By: #### C BC ####[facility] [address] [place], [place] [address]Dr. Areli Yousif Hematocrit (Bld) [Volume fraction] 35.7 % Critically low 42.0-54.0 [facility] Comment on above: Performed By: #### C BC ####[facility] [address] [place], [place] [address]Dr. Areli Yousif Hemoglobin (Bld) [Mass/Vol] 11.4 g/dL Critically low 14.0-18.0 [facility] Comment on above: Performed By: #### C BC ####[facility] [address] [place], [place] [address]Dr. Areli Yousif IG # 0.02 10e3/ul Normal 0.00-0.03 [facility] Comment on above: Performed By: #### C BC ####[facility] [address] [place], [place] [address]Dr. Areli Yousif IG % 0.3 % Normal 0.0-0.5 [facility] Comment on above: Performed By: #### C BC ####[facility] [address] [place] [address]Dr. Areli Yousif LYMPH # 2.0 103/ul Normal 1.2-3.8 [facility] Comment on above: Performed By: #### C BC ####[facility] [address] [place] [address]Dr. Areli Yousif Lymphocytes/100 WBC (Bld) 33.8 % Normal 20.5-60.0 [facility] Comment on above: Performed By: #### C BC ####[facility] [address] [place] [address]Dr. Areil Yousif MANUAL DIFF REQ NO Normal [facility] Comment on above: Performed By: #### C BC ####[facility] [address] [place] [address]Dr. Areli Yousif MCH (RBC) [Entitic mass] 28.5 pg Normal 25.9-34.0 [facility] Comment on above: Performed By: #### C BC ####[facility] [address] [place] [address]Dr. Areli Yousif MCHC (RBC) [Mass/Vol] 31.9 g/dL Normal 29.9-35.2 [facility] Comment on above: Performed By: #### C BC ####[facility] [address] [place] [address]Dr. Areli Yousif MCV (RBC) [Entitic vol] 89.3 fL Normal 80.0-94.0 [facility] Comment on above: Performed By: #### C BC ####[facility] [address] [place] [address]Dr. Areli Yousif MONO # 0.4 103/ul Normal 0.3-0.8 [facility] Comment on above: Performed By: #### C BC ####[facility] [address] [place] [address]Dr. Areli Yousif Monocytes/100 WBC (Bld) 6.6 % Normal 1.7-12.0 [facility] Comment on above: Performed By: #### C BC ####[facility] [address] [place] [address]Dr. Areli Yousif NEUT # 3.0 103/ul Normal 1.4-6.5 [facility] Comment on above: Performed By: #### C BC ####[facility] [address] [place] [address]Dr. Areli Yousif Neutrophils/100 WBC (Bld) 49.5 % Normal 43.0-75.0 [facility] Comment on above: Performed By: #### C BC ####[facility] [address] [place] [address]Dr. Areli Yousif Platelet mean volume (Bld) [Entitic vol] 11.2 fL Normal 9.5-13.5 [facility] Comment on above: Performed By: #### C BC ####[facility] [address] [place] [address]Dr. Areli Yousif PLT 244 103/ul Normal 150-450 [facility] Comment on above: Performed By: #### C BC ####[facility] [address] [place] [address]Dr. Areli Yousif RBC 4.00 106/ul Critically low 4.70-6.10 [facility] Comment on above: Performed By: #### C BC ####[facility] [address] [place] [address]Dr. Areli Yousif WBC 6.0 103/ul Normal 4.0-11.0 [facility] Comment on above: Performed By: #### C BC ####[facility] [address] [place] [address]Dr. Areli Yousif Consent for Treatmenton 02-02 Consent for Treatment [id number]#1.0 0CD:127 Normal [facility] Outside Cardiovascularon Outside Cardiovascular [id number]#1.0 0CD:127 Normal [facility] Outside Cardiovascular [id number]#1.0 0CD:127 Normal [facility] PROF 14(COMP METB)on 023 Albumin [Mass/Vol] 3.2 g/dL Critically low 3.4-5.0 [facility] Comment on above: Performed By: #### C MP ####[facility] [address] [place] [address]Dr. Areli Yousif Albumin/Globulin [Mass ratio] 0.9 {ratio} Normal [facility] Comment on above: Performed By: #### C MP ####[facility] [address] [place], [place] [address]Dr. Areli Yousif ALP [Catalytic activity/Vol] 77 U/L Normal 46-116 [facility] Comment on above: Performed By: #### C MP ####[facility] [address] [place], [place] [address]Dr. Areli Yousif ALT [Catalytic activity/Vol] 14 U/L Critically low 16-63 [facility] Comment on above: Performed By: #### C MP ####[facility] [address] [place], [place] [address]Dr. Areli Yousif Anion gap [Moles/Vol] 12.1 mmol/L Normal [facility] Comment on above: Performed By: #### C MP ####[facility] [address] [place], [place] [address]Dr. Areli Yousif AST [Catalytic activity/Vol] 8 U/L Critically low 15-37 [facility] Comment on above: Performed By: #### C MP ####[facility] [address] [place], [place] [address]Dr. Areli Yousif Bilirubin [Mass/Vol] 0.3 mg/dL Normal 0.2-1.0 [facility] Comment on above: Performed By: #### C MP ####[facility] [address] [place], [place] [address]Dr. Areli Yousif Calcium [Mass/Vol] 9.1 mg/dL Normal 8.5-10.1 [facility] Comment on above: Performed By: #### C MP ####[facility] [address] [place] [address]Dr. Areli Yousif Chloride [Moles/Vol] 106 mmol/L Normal 98-107 [facility] Comment on above: Performed By: #### C MP ####[facility] [address] [place] [address]Dr. Areli Yousif CO2 [Moles/Vol] 28.9 mmol/L Normal 21.0-32.0 [facility] Comment on above: Performed By: #### C MP ####[facility] [address] [place] [address]Dr. Areli Yousif Creatinine [Mass/Vol] 1.20 mg/dL Normal 0.70-1.30 [facility] Comment on above: Performed By: #### C MP ####[facility] [address] [place], [place] [address]Dr. Areli Yousif EGFR-AF ICELANDIC >60 Normal >=60 [facility] Comment on above: Performed By: #### C MP ####[facility] [address] [place], [place] [address]Dr. Areli Yousif EGFR-NON AF ICELANDIC =60 Normal >=60 [facility] Comment on above: Performed By: #### C MP ####[facility] [address] [place], [place] [address]Dr. Areli Yousif Globulin (S) [Mass/Vol] 3.6 g/dL Normal [facility] Comment on above: Performed By: #### C MP ####[facility] [address] [place], [place] [address]Dr. Areli Yousif Glucose [Mass/Vol] 120 mg/dL Critically high 74-106 [facility] Comment on above: Performed By: #### C MP ####[facility] [address] [place], [place] [address]Dr. Areli Yousif Potassium [Moles/Vol] 4.0 mmol/L Normal 3.5-5.1 [facility] Comment on above: Performed By: #### C MP ####[facility] [address] [place], [place] [address]Ue. Areli Yousif Protein [Mass/Vol] 6.8 g/dL Normal 6.4-8.2 [facility] Comment on above: Performed By: #### C MP ####[facility] [address] [place] [address]Dr. Areli Yousif Sodium [Moles/Vol] 143 mmol/L Normal 136-145 [facility] Comment on above: Performed By: #### C MP ####[facility] [address] [place], [place] [address]Wo. Areli Yousif Urea nitrogen [Mass/Vol] 33.0 mg/dL Critically high 7.0-18.0 [facility] Comment on above: Performed By: #### C MP ####[facility] [address] [place] [address]Dr. Areli Yousif Urea nitrogen/Creatinine [Mass ratio] 27.5 mg/mg Normal [facility] Comment on above: Performed By: #### C MP ####[facility] [address] [place] [address]Dr. Areli Yousif Physician Orderon 02-11-2023 Physician Order [id number]#1. 00CD:127 [facility] Progress Note-Physicianon Progress Note-Physician [id number]#1. 00CD:127 [facility] Coding Summary.on 02-03-2023 Coding Summary. Normal [facility] Formson 02-02-2023 Forms [id number]#1.0 0CD:127 [facility] Coding Queryon 02-01-2023 Coding Query [facility] Consenton 01-29-2023 Consent [id number]#1. 00CD:127 [facility] DNR - Do Not Resuscitateon 0 01-29-2023 DNR - Do Not Resuscitate [id number]#1. 00CD:127 Normal [facility] Discharge Instructionson Discharge Instructions [id number]#1. 00CD:127 Normal [facility] Transfer Documentson 023 Transfer Documents [id number]#1. 00CD:127 Normal [facility] EEGon 01-28-2023 EEG Normal [facility] Comment on above: Result Comment: Elec tronically Signed By: Lg LEMONS, Lilia\.br\Date and Time Signed: 01/28/23 09:38 EDT Cortisolon 01-27-2023 Cortisol [Mass/Vol] 9.4 microgram/dL Invalid Interpretation Code 6.2-19.4 [facility] Comment on above: Result Comment: Plea se Note: The reference interval and flagging forthis test is for an AM collection. If this is a PMcollection please use: Cortisol PM: 2.3-11.9[facility] also offers:[id number]: Cortisol- [id number]: Cortisol- PMPerformed at: [facility] [address] [id number] PhD Desmond Jimenez Performed By: #### 2 [id number] ####[facility] [address] [place] [address] CHEMISTRYOrdered By: Arpita ROP User on 01-26-2023 Glucose [Mass/Vol] 156 mg/dL High 55 - 99 mg/dL [facility] POC Subsection Comment on above: Result Comment: Alida renetta Meter POC Device SN [id number] Invalid Interpretation Code FT POC Subsection POC User ID [id number] Invalid Interpretation Code [facility] POC Subsection POC Username JOSE RAFAEL PAGE Invalid Interpretation Code [facility] POC Subsection Glucose [Mass/Vol] 140 mg/dL High 55 - 99 mg/dL [facility] POC Subsection Comment on above: Result Comment: Alida renetta Meter POC Device SN [id number] Invalid Interpretation Code [facility] POC Subsection POC User ID [id number] Invalid Interpretation Code [facility] POC Subsection POC Username JOSE RAFAEL PAGE Invalid Interpretation Code [facility] POC Subsection Capillary Glucose POCon 01-04 Glucose [Mass/Vol] 156 mg/dL [address] Comment on above: Result Comment: Alida renetta Meter Performed By: #### 2 [id number] ####[facility] [address] [place] [address] Glucose [Mass/Vol] 140 mg/dL [address] Comment on above: Result Comment: Alida renetta Meter Performed By: #### 2 [id number] ####[facility] [address] [place] [address] Discharge Note-Nursingon Discharge Note-Nursing Normal [facility] EEGon 01-26-2023 EEG Normal [facility] Comment on above: Result Comment: Elec tronically Signed By: Lilia Castanon MD\.br\Date and Time Signed: 01/26/23 11:16 EDT EEG Normal [facility] Comment on above: Result Comment: Elec tronically Signed By: Lilia Castanon MD\.br\Date and Time Signed: 01/26/23 11:15 EDT Inpatient Clinical Summaryon 01-26-2023 Inpatient Clinical Summary Normal [facility] Inpatient Patient Summaryon 01-26-2023 Inpatient Patient Summary Normal [facility] Interdisciplinary Note - Hermelindo e Manageron 01-26-2023 Interdisciplinary Note - Oncology Registrar Normal [facility] Comment on above: Result Comment: Elec tronically Signed By: Meredith Reilly RN\.br\Date and Time Signed: 01/26/23 13:16 EDT Interdisciplinary Note - Nut ritionon 01-26-2023 Interdisciplinary Note - Nutrition Normal [facility] Comment on above: Result Comment: Elec tronically Signed By: LD. Morales RD., Michelle\.br\Date and Time Signed: 01/26/23 09:05 EDT Monitor Recordon 01-26-2023 Monitor Record [id number]#1. 00CD:127 Normal [facility] Monitor Record [id number]#1. 00CD:127 Normal [facility] Monitor Record [id number]#1. 00CD:127 Normal [facility] Progress Note-Physicianon Progress Note-Physician Normal [facility] Comment on above: Result Comment: Elec tronically Signed By: Saira GONZALEZ, Rajni Arteaga\.br\Date and Time Signed: 01/26/23 07:26 EDT\.br\Electronically Co-Signed By: Lilia Castanon MD\.br\Date and Time Co-Signed: 01/26/23 11:59 EDT CHEMISTRYOrdered By: Lab ROP User on 01-25-2023 Glucose [Mass/Vol] 208 mg/dL High 55 - 99 mg/dL [facility] POC Subsection Comment on above: Result Comment: Clemente MCCLAIN POC Device SN [id number] Invalid Interpretation Code [facility] POC Subsection POC User ID [id number] Invalid Interpretation Code [facility] POC Subsection POC Username RICKY SHIN Invalid Interpretation Code [facility] POC Subsection Capillary Glucose POCon 01-04 Glucose [Mass/Vol] 208 mg/dL High 55-99 [facility] Comment on above: Result Comment: Clemente MCCLAIN Performed By: #### 2 [id number] ####[facility] [address] [place] [address] Glucose [Mass/Vol] 152 mg/dL High 55-99 [facility] Comment on above: Result Comment: Clemente MCCLAIN Performed By: #### 2 [id number] ####[facility] [address] [place] [address] Glucose [Mass/Vol] 214 mg/dL High 55-99 [facility] Comment on above: Result Comment: Clemente MCCLAIN Performed By: #### 2 [id number] ####[facility] [address] [place] [address] Glucose [Mass/Vol] 151 mg/dL High 55-99 [facility] Comment on above: Result Comment: Clemente MCCLAIN Performed By: #### 2 [id number] ####[facility] [address] [place] [address] Monitor Recordon 01-25-2023 Monitor Record [id number]#1. 00CD:127 Normal [facility] Monitor Record [id number]#1. 00CD:127 Normal [facility] Monitor Record [id number]#1. 00CD:127 Normal [facility] Monitor Record [id number]#1. 00CD:127 Normal [facility] Monitor Record [id number]#1. 00CD:127 Normal [facility] Progress Note-Physicianon Progress Note-Physician Normal [facility] Comment on above: Result Comment: Elec tronically Signed By: Eboni LEMONS, John White\.br\Date and Time Signed: 01/25/23 10:38 EDT Progress Note-Physician [facility] Comment on above: Result Comment: Elec tronically Signed By: Fallon Rudd RN\.br\Date and Time Signed: 01/25/23 07:45 EDT\.br\Electronically Co-Signed By: Lilia Castanon MD\.br\Date and Time Co-Signed: 01/25/23 10:01 EDT Auto Diffon 01-24-2023 Basophils/100 WBC (Bld) 0.9 % Normal 0.0-2.0 [facility] Comment on above: Order Comment: Order Added by Pearl Expert. Performed By: #### 2 [id number], 6632383, 8363286, 6597335, 54992124, 5809240 ####[facility] [address] [place] [address] Basophils/Leukocytes Auto (Bld) [Pure # fraction] 0.1 E9/L Normal 0.0-0.2 [facility] Comment on above: Order Comment: Order Added by Discern Expert. Performed By: #### 2 102214, 2202423, 4346251, 6560799, 91463418, 2084128 ####[place] [address] [place] [address] Eosinophils/100 WBC (Bld) 8.7 % High 0.0-8.0 [facility] Comment on above: Order Comment: Order Added by Discern Expert. Performed By: #### 2 386061, 5986504, 1216897, 8660180, 38704931, 3896796 ####[place] [address] [place] [address] Eosinophils/Leukocytes Auto (Bld) [Pure # fraction] 0.6 E9/L High 0.0-0.5 [facility] Comment on above: Order Comment: Order Added by Pearl Expert. Performed By: #### 2 592479, 2933749, 1253961, 3325938, 11505443, 5988262 ####[address] [address] Lymphocytes/100 WBC (Bld) 38.0 % Normal 14.0-50.0 [facility] Comment on above: Order Comment: Order Added by Pearl Expert. Performed By: #### 2 064923, 4092855, 2298070, 1246624, 37724557, 9879981 ####[address] [place] [address] Lymphocytes/Leukocytes Auto (Bld) [Pure # fraction] 2.7 E9/L Normal 1.0-4.0 [facility] Comment on above: Order Comment: Order Added by Pearl Expert. Performed By: #### 2 511670, 9617981, 4118895, 5599372, 90537736, 8865174 ####[address] [place] [address] Monocytes/100 WBC (Bld) 8.2 % Normal 4.0-14.0 [facility] Comment on above: Order Comment: Order Added by Pearl Expert. Performed By: #### 2 444186, 8333765, 9939986, 3633040, 10725882, 2493161 ####[address] [place] [address] Monocytes/Leukocytes Auto (Bld) [Pure # fraction] 0.6 E9/L Normal 0.2-1.0 [facility] Comment on above: Order Comment: Order Added by Discern Expert. Performed By: #### 2 709197, 3924884, 6717243, 6523470, 71742093, 8319127 ####[address] [place] [address] Neutrophils/100 WBC (Bld) 44.2 % Normal 36.0-75.0 [facility] Comment on above: Order Comment: Order Added by Discern Expert. Performed By: #### 2 132239, 8352407, 7505998, 5547481, 40125059, 8737997 ####[address] [place] [address] Neutrophils/Leukocytes Auto (Bld) [Pure # fraction] 3.1 E9/L Normal 2.0-7.5 [facility] Comment on above: Order Comment: Order Added by Discern Expert. Performed By: #### 2 916458, 1264782, 9891396, 9347791, 61273927, 3565370 ####[address] [place] [address] BMPon 01-24-2023 Anion gap [Moles/Vol] 10 mmol/L Normal 6-16 [facility] Comment on above: Performed By: #### 2 633302, 9768976, 3234933, 1316596, 06213882, 0118102 ####[address] [place] [address] Calcium [Mass/Vol] 8.7 mg/dL Low 8.9-11.1 [facility] Comment on above: Performed By: #### 2 463435, 4167128, 6677145, 9724105, 09313761, 3421986 ####[address] [place] [address] Chloride [Moles/Vol] 106 mmol/L Normal 101-111 [facility] Comment on above: Performed By: #### 2 358533, 0239710, 5649639, 6118842, 25795091, 1888594 ####[facility] [address] [place] [address] CO2 [Moles/Vol] 28 mmol/L Normal 21-31 [facility] Comment on above: Performed By: #### 2 512614, 0137039, 8161624, 9482321, 79611793, 3803912 ####[facility] [address] [place] [address] Creatinine [Mass/Vol] 1.0 mg/dL Normal 0.5-1.3 [facility] Comment on above: Performed By: #### 2 138394, 7981135, 5849896, 1750174, 22947121, 1653174 ####[facility] [address] [place] [address] Glucose [Mass/Vol] 163 mg/dL Normal 55-199 [facility] Comment on above: Result Comment: If t his glucose result represents a fasting glucose, interpretation should refer to the following reference range: 55-99 mg/dL Performed By: #### 2 709769, 8008075, 4326744, 9550329, 68464061, 4995914 ####[facility] [address] [place] [address] Potassium [Moles/Vol] 3.9 mmol/L Normal 3.5-5.3 [facility] Comment on above: Performed By: #### 2 478232, 2471410, 6666073, 5084412, 35407208, 5259893 ####[facility] [address] [place] [address] Sodium [Moles/Vol] 140 mmol/L Normal 135-145 [facility] Comment on above: Performed By: #### 2 260143, 8001416, 5678720, 1525269, 90711088, 9467820 ####[facility] [address] [place] [address] Urea nitrogen [Mass/Vol] 24 mg/dL High 5-21 [facility] Comment on above: Performed By: #### 2 617951, 7430402, 3031640, 7958407, 60970532, 7413295 ####[facility] [address] [place] [address] Urea nitrogen/Creatinine [Mass ratio] 24 No Units High 10-20 [facility] Comment on above: Performed By: #### 2 125630, 6979706, 6997398, 9463255, 26308155, 3616800 ####[facility] [address] [place] [address] CBC w/ Auto Diffon Erythrocyte distribution width (RBC) [Ratio] 14.8 % High 10.9-14.2 [facility] Comment on above: Performed By: #### 2 775613, 0499619, 0178947, 3607091, 43913490, 0787825 ####[facility] [address] [place] [address] Hematocrit (Bld) [Volume fraction] 34.1 % Low 37.7-49.0 [facility] Comment on above: Performed By: #### 2 905281, 8356304, 1830492, 7157076, 97219508, 5600865 ####[facility] [address] [place] [address] Hemoglobin (Bld) [Mass/Vol] 11.2 g/dL Low 13.5-17.5 [facility] Comment on above: Performed By: #### 2 961442, 0312080, 9753070, 7358830, 65285359, 3959881 ####[facility] [address] [place] [address] MCH (RBC) [Entitic mass] 28.3 pg Normal 27.0-34.0 [facility] Comment on above: Performed By: #### 2 290481, 0342421, 3798412, 5058175, 51235887, 4653656 ####[address] [place] [address] MCHC (RBC) [Mass/Vol] 32.9 g/dL Normal 31.4-36.0 [facility] Comment on above: Performed By: #### 2 980844, 8842529, 0838423, 2535147, 68611297, 8929908 ####[address] [address] MCV (RBC) [Entitic vol] 86.0 fL Normal 80.0-100.0 [facility] Comment on above: Performed By: #### 2 195735, 9697958, 8197756, 3728172, 85475392, 2809451 ####[address] [address] Platelet mean volume (Bld) [Entitic vol] 8.8 fL Normal 6.4-10.8 [facility] Comment on above: Performed By: #### 2 836964, 8440734, 2776427, 1446987, 88943812, 7371218 ####[address] [address] Platelets (Bld) [#/Vol] 207.0 E9/L Normal 150.0-500.0 [facility] Comment on above: Performed By: #### 2 375160, 7576768, 2462175, 6525288, 11818947, 4059777 ####[address] [address] RBC (Bld) [#/Vol] 4.0 E12/L Low 4.3-5.9 [facility] Comment on above: Performed By: #### 2 370493, 5540289, 3512555, 4314000, 36511368, 5764114 ####[address] [place] [address] WBC corrected for nucl RBC Auto (Bld) [#/Vol] 7.0 E9/L Normal 4.0-11.0 [facility] Comment on above: Performed By: #### 2 090484, 7247833, 8379596, 9488086, 20427867, 8182931 ####[facility] [address] [place] [address] CHEMISTRYOrdered By: SYSTEM SYSTEM on 01-24-2023 Anion gap [Moles/Vol] 10 mmol/L Normal 6 - 16 mEq/L [facility] Remisol Calcium [Mass/Vol] 8.7 mg/dL Low 8.9 - 11. 1 mg/dL [facility] Remisol Chloride [Moles/Vol] 106 mmol/L Normal 101 - 1 11 mmol/L [facility] Remisol CO2 [Moles/Vol] 28 mmol/L Normal 21 - 31 mmol/L [facility] Rem[facility] Creatinine [Mass/Vol] 1.0 mg/dL Normal 0.5 - 1.3 mg/dL [facility] Remisol GFR/1.73 sq M.predicted among blacks MDRD (S/P/Bld) [Vol rate/Area] mL/min/1.73 m2 Normal >=59mL/min/1 .73 m2 [facility] Chem S GFR/1.73 sq M.predicted among non-blacks MDRD (S/P/Bld) [Vol rate/Area] mL/min/1.73 m2 Normal >=59mL/min/1 .73 m2 [facility] Chem S Glucose [Mass/Vol] 163 mg/dL Normal 55 - 199 mg/dL [facility] Magnesium [Mass/Vol] 1.5 mg/dL Normal 1.3 - 2 .4 mg/dL [facility] Phosphate [Mass/Vol] 3.8 mg/dL Normal 1.9 - 4 .6 mg/dL [facility] Potassium [Moles/Vol] 3.9 mmol/L Normal 3.5 - 5.3 mmol/L [facility] Remisol Sodium [Moles/Vol] 140 mmol/L Normal 135 - 145 mmol/L [facility] Rem[facility] Urea nitrogen [Mass/Vol] 24 mg/dL High 5 - 21 mg/dL [facility] Remisol Urea nitrogen/Creatinine [Mass ratio] 24 mg/mg High 10 - 20 [facility] Remisol Capillary Glucose POCon 01-04 Glucose [Mass/Vol] 148 mg/dL High 55-99 [facility] Comment on above: Result Comment: Clemente christopher RN/ Performed By: #### 2 [id number] ####[facility] [address] [place] [address] Glucose [Mass/Vol] 208 mg/dL High 55-99 [facility] Comment on above: Result Comment: Alida renetta Meter Performed By: #### 2 23897895 ####[facility] [address] [place] [address] Glucose [Mass/Vol] 201 mg/dL High 55-99 [facility] Comment on above: Result Comment: Repe at Test Performed By: #### 2 68264239 ####[facility] [address] [place] [address] Glucose [Mass/Vol] 144 mg/dL High 55-99 [facility] Comment on above: Result Comment: Alida renetta Meter Performed By: #### 2 45519687 ####[facility] [address] [place] [address] HEMATOLOGYOrdered By: SYSTEM SYSTEM on 01-24-2023 Basophils/100 WBC (Bld) 0.9 % Normal 0.0 - 2.0 % [facility] HemeAutoSS Basophils/Leukocytes Auto (Bld) [Pure # fraction] 0.1 E9/L Normal 0.0 - 0.2 E9/L [facility] HemeAutoSS Eosinophils/100 WBC (Bld) 8.7 % High 0.0 - 8.0 % [facility] HemeAutoSS Eosinophils/Leukocytes Auto (Bld) [Pure # fraction] 0.6 E9/L High 0.0 - 0.5 E9/L [facility] HemeAutoSS Lymphocytes/100 WBC (Bld) 38.0 % Normal 14.0 - 50.0 % [facility] HemeAutoSS Lymphocytes/Leukocytes Auto (Bld) [Pure # fraction] 2.7 E9/L Normal 1.0 - 4.0 E9/L [facility] HemeAutoSS Monocytes/100 WBC (Bld) 8.2 % Normal 4.0 - 14.0 % [facility] HemeAutoSS Monocytes/Leukocytes Auto (Bld) [Pure # fraction] 0.6 E9/L Normal 0.2 - 1.0 E9/L [facility] HemeAutoSS Neutrophils/100 WBC (Bld) 44.2 % Normal 36.0 - 75.0 % [facility] HemeAutoSS Neutrophils/Leukocytes Auto (Bld) [Pure # fraction] 3.1 E9/L Normal 2.0 - 7.5 E9/L [facility] HemeAutoSS HEMATOLOGYOrdered By: Brianna Londono on 01-24-2023 Erythrocyte distribution width (RBC) [Ratio] 14.8 % High 10.9 - 14.2 % [facility] HemeAutoSS Hematocrit (Bld) [Volume fraction] 34.1 % Low 37.7 - 49.0 % [facility] HemeAutoSS Hemoglobin (Bld) [Mass/Vol] 11.2 g/dL Low 13.5 - 17.5 gm/dL [facility] HemeAutoSS MCH (RBC) [Entitic mass] 28.3 pg Normal 27.0 - 34.0 pg [facility] HemeAutoSS MCHC (RBC) [Mass/Vol] 32.9 g/dL Normal 31.4 - 36.0 gm/dL [facility] HemeAutoSS MCV (RBC) [Entitic vol] 86.0 fL Normal 80.0 - 100.0 fL [facility] HemeAutoSS Platelet mean volume (Bld) [Entitic vol] 8.8 fL Normal 6.4 - 10.8 fL [facility] HemeAutoSS Platelets (Bld) [#/Vol] 207.0 E9/L Normal 150.0 - 500.0 E9/L [facility] HemeAutoSS RBC (Bld) [#/Vol] 4.0 E12/L Low 4.3 - 5.9 E12/L [facility] HemeAutoSS WBC corrected for nucl RBC Auto (Bld) [#/Vol] 7.0 E9/L Normal 4.0 - 11.0 E9/L [facility] HemeAutoSS Magnesiumon 01-24-2023 Magnesium [Mass/Vol] 1.5 mg/dL Normal 1.3-2.4 [facility] Comment on above: Performed By: #### 2 372016, 9928769, 4789598, 1237366, 82880464, 3457951 ####[facility] [address] [place] [address] Monitor Recordon 01-24-2023 Monitor Record [id number]#1. 00CD:127 Normal [facility] Monitor Record [id number]#1. 00CD:127 Normal [facility] Monitor Record [id number]#1. 00CD:127 Normal [facility] Phosphoruson 01-24-2023 Phosphate [Mass/Vol] 3.8 mg/dL Normal 1.9-4.6 [facility] Comment on above: Performed By: #### 2 378134, 9838328, 7403704, 8041006, 16186193, 9750555 ####[facility] [address] [place] [address] Progress Note-Physicianon Progress Note-Physician [facility] Comment on above: Result Comment: Elec tronically Signed By: John Lyn MD\.br\Date and Time Signed: 01/24/23 14:33 EDT Progress Note-Physician [facility] Comment on above: Result Comment: Elec tronically Signed By: Fallon Rudd RN\.br\Date and Time Signed: 01/24/23 08:05 EDT\.br\Electronically Co-Signed By: Lilia Castanon MD\.br\Date and Time Co-Signed: 01/24/23 10:23 EDT eGFRon 01-24-2023 GFR/1.73 sq M.predicted among blacks MDRD (S/P/Bld) [Vol rate/Area] mL/min/{1.73_m2} Normal >=59 [facility] Comment on above: Order Comment: Order added by Discern Expert. Result Comment: eGFR is race adjusted. AA=. Performed By: #### 2 259283, 8422705, 3603998, 8458722, 77010443, 4080846 ####[facility] [address] [place] [address] GFR/1.73 sq M.predicted among non-blacks MDRD (S/P/Bld) [Vol rate/Area] mL/min/{1.73_m2} Normal >=59 [facility] Comment on above: Order Comment: Order added by Discern Expert. Result Comment: Hospice Care Transitions Coordinator lokesh kidney disease could be indicated at eGFR's of less than 60 mL/min/1.73m2. Kidney failure is indicated at less than 15 mL/min/1.73m2. Performed By: #### 2 270431, 7446531, 2699881, 2602360, 41433813, 5326102 ####[facility] [address] [place] [address] Capillary Glucose POCon 01-04 Glucose [Mass/Vol] 174 mg/dL High [address] [place] [address] Comment on above: Result Comment: Clemente MCCLAIN Performed By: #### 2 [id number] ####[facility] [address] [place] [address] Glucose [Mass/Vol] 140 mg/dL [address] Comment on above: Result Comment: Clemente MCCLAIN Performed By: #### 2 54791669 ####[facility] [address] [place] [address] Glucose [Mass/Vol] 206 mg/dL [address] Comment on above: Result Comment: Clemente MCCLAIN Performed By: #### 2 27468796 ####[facility] [address] [place] [address] Glucose [Mass/Vol] 129 mg/dL High [address] [place] [address] Comment on above: Result Comment: Clemente MCCLAIN Performed By: #### 2 26470952 ####[facility] [address] [place] [address] Consultation Noteon 01-24-20 Consultation Note Normal [facility] Comment on above: Result Comment: Elec tronically Signed By: Fallon Rudd RN\.br\Date and Time Signed: 01/23/23 09:08 EDT\.br\Electronically Co-Signed By: Lilia Castanon MD\.br\Date and Time Co-Signed: 01/23/23 10:18 EDT Interdisciplinary Note - Hermelindo e Manageron 01-23-2023 Interdisciplinary Note - Oncology Registrar [facility] Comment on above: Result Comment: Elec tronically Signed By: Luba GONZALEZ, Mily\.br\Date and Time Signed: 01/23/23 10:20 EDT Interdisciplinary Note - Hortensia n 01-23-2023 Interdisciplinary Note - OT OT six clicks score = HH services. Patient will require continued 24 hr supervision/assist at [facility], but, no further OT services needed at this time as pt is close to baseline status for adls. DC inpatient OT services. [facility] Message from Medicareon 01-04 Message from Medicare [id number]#1. 00CD:127 [facility] Monitor Recordon 01-23-2023 Monitor Record [id number]#1. 00CD:127 [facility] Monitor Record [id number]#1. 00CD:127 [facility] Progress Note-Physicianon Progress Note-Physician [facility] Comment on above: Result Comment: Elec tronically Signed By: Eboni LEMONS, John White\.br\Date and Time Signed: 01/23/23 16:00 EDT Auto Diffon 01-22-2023 Basophils/100 WBC (Bld) 1.8 % Normal 0.0-2.0 [facility] Comment on above: Order Comment: Order Added by Discern Expert. Performed By: #### 2 233684, 15132527, 41783556, 3342741, 39974995, 7313587 ####[facility] [address] [place] [address] Basophils/Leukocytes Auto (Bld) [Pure # fraction] 0.1 E9/L Normal 0.0-0.2 [facility] Comment on above: Order Comment: Order Added by Discern Expert. Performed By: #### 2 514729, 77792925, 83038279, 5426442, 83880863, 2296725 ####[address] [place] [address] Eosinophils/100 WBC (Bld) 8.7 % High 0.0-8.0 [facility] Comment on above: Order Comment: Order Added by Discern Expert. Performed By: #### 2 711045, 71619789, 55196066, 2738033, 24810928, 5863047 ####[address] [address] Eosinophils/Leukocytes Auto (Bld) [Pure # fraction] 0.5 E9/L Normal 0.0-0.5 [facility] Comment on above: Order Comment: Order Added by Discern Expert. Performed By: #### 2 184072, 11032617, 60212757, 8855803, 59781949, 3749856 ####[address] [address] Lymphocytes/100 WBC (Bld) 37.2 % Normal 14.0-50.0 [facility] Comment on above: Order Comment: Order Added by Discern Expert. Performed By: #### 2 759352, 60080880, 46236076, 7492953, 18656122, 0461406 ####[address] [address] Lymphocytes/Leukocytes Auto (Bld) [Pure # fraction] 2.3 E9/L Normal 1.0-4.0 [facility] Comment on above: Order Comment: Order Added by Discern Expert. Performed By: #### 2 100361, 50378050, 22087102, 8395032, 22626789, 3748544 ####[address] [address] Monocytes/100 WBC (Bld) 7.2 % Normal 4.0-14.0 [facility] Comment on above: Order Comment: Order Added by Discern Expert. Performed By: #### 2 247719, 33107160, 19634634, 1206648, 47662376, 9949338 ####[address] [place] [address] Monocytes/Leukocytes Auto (Bld) [Pure # fraction] 0.4 E9/L Normal 0.2-1.0 [facility] Comment on above: Order Comment: Order Added by Discern Expert. Performed By: #### 2 233819, 37342787, 84157114, 8996807, 94323258, 9109345 ####[address] [place] [address] Neutrophils/100 WBC (Bld) 45.1 % Normal 36.0-75.0 [facility] Comment on above: Order Comment: Order Added by Discern Expert. Performed By: #### 2 439555, 64372491, 72195197, 6056484, 92457810, 4867910 ####[address] [place] [address] Neutrophils/Leukocytes Auto (Bld) [Pure # fraction] 2.7 E9/L Normal 2.0-7.5 [facility] Comment on above: Order Comment: Order Added by Discern Expert. Performed By: #### 2 532693, 67074880, 41517121, 6740494, 26427197, 7160006 ####[address] [place] [address] BMPon 01-22-2023 Creatinine [Mass/Vol] 1.2 mg/dL Normal 0.5-1.3 [facility] Comment on above: Performed By: #### 2 468424, 10328673, 95594621, 5374003, 52016005, 9573977 ####[address] [place] [address] Urea nitrogen [Mass/Vol] 25 mg/dL High 5-21 [facility] Comment on above: Performed By: #### 2 966739, 19515325, 88892737, 0863448, 15622123, 5003765 ####[address] [place] [address] Urea nitrogen/Creatinine [Mass ratio] 21 No Units High 10-20 [facility] Comment on above: Performed By: #### 2 117372, 11620066, 80628118, 9013916, 47769938, 7492545 ####[facility] [address] [place] [address] Anion gap [Moles/Vol] 13 mmol/L Normal 6-16 [facility] Comment on above: Performed By: #### 2 090786, 48462755, 47656044, 6114972, 45750791, 1605703 ####[facility] [address] [place] [address] Calcium [Mass/Vol] 8.6 mg/dL Low 8.9-11.1 [facility] Comment on above: Performed By: #### 2 569587, 08832832, 29347230, 3454736, 91079873, 1659793 ####[facility] [address] [place] [address] Chloride [Moles/Vol] 105 mmol/L Normal 101-111 [facility] Comment on above: Performed By: #### 2 575964, 01728760, 95802302, 0277200, 93845729, 6936367 ####[facility] [address] [place] [address] CO2 [Moles/Vol] 24 mmol/L Normal 21-31 [facility] Comment on above: Performed By: #### 2 972841, 22446892, 95959671, 6144697, 50149523, 0724983 ####[facility] [address] [facility] [place] [address] Glucose [Mass/Vol] 227 mg/dL High 55-199 [facility] Comment on above: Result Comment: If t his glucose result represents a fasting glucose, interpretation should refer to the following reference range: 55-99 mg/dL Performed By: #### 2 135283, 06308442, 74651166, 7272944, 45168365, 4381875 ####[facility] [address] [place] [address] Potassium [Moles/Vol] 4.0 mmol/L Normal 3.5-5.3 [facility] Comment on above: Performed By: #### 2 770461, 70374794, 97390947, 8781731, 23413459, 2841418 ####[facility] [address] [place] [address] Sodium [Moles/Vol] 138 mmol/L Normal 135-145 [facility] Comment on above: Performed By: #### 2 149616, 39495729, 62204497, 7811263, 20407091, 7999265 ####[facility] [address] [place] [address] CBC w/ Auto Diffon Erythrocyte distribution width (RBC) [Ratio] 14.8 % High 10.9-14.2 [facility] Comment on above: Performed By: #### 2 540297, 93050136, 26591446, 7501818, 29457989, 9273655 ####[facility] [address] [place] [address] Hematocrit (Bld) [Volume fraction] 33.8 % Low 37.7-49.0 [facility] Comment on above: Performed By: #### 2 615472, 60815801, 97835128, 3930571, 86837680, 6483861 ####[facility] [address] [place] [address] Hemoglobin (Bld) [Mass/Vol] 10.9 g/dL Low 13.5-17.5 [facility] Comment on above: Performed By: #### 2 505854, 28104579, 32105503, 9343382, 07069804, 6469087 ####[facility] [address] [place] [address] MCH (RBC) [Entitic mass] 28.2 pg Normal 27.0-34.0 [facility] Comment on above: Performed By: #### 2 852563, 10394999, 47527339, 7907947, 53786098, 1397123 ####[address] [place] [address] MCHC (RBC) [Mass/Vol] 32.4 g/dL Normal 31.4-36.0 [facility] Comment on above: Performed By: #### 2 185813, 96191541, 12078166, 2207413, 77663539, 0586186 ####[address] [place] [address] MCV (RBC) [Entitic vol] 87.1 fL Normal 80.0-100.0 [facility] Comment on above: Performed By: #### 2 865790, 14265487, 82533370, 6638860, 06771969, 8042700 ####[address] [address] Platelet mean volume (Bld) [Entitic vol] 9.4 fL Normal 6.4-10.8 [facility] Comment on above: Performed By: #### 2 164735, 47227666, 49737065, 8422299, 01904646, 4133156 ####[address] [address] Platelets (Bld) [#/Vol] 215.0 E9/L Normal 150.0-500.0 [facility] Comment on above: Performed By: #### 2 771888, 00997293, 98579022, 2205636, 89720905, 4529489 ####[address] [address] RBC (Bld) [#/Vol] 3.9 E12/L Low 4.3-5.9 [facility] Comment on above: Performed By: #### 2 508671, 05128067, 38604071, 5580961, 45357591, 4062157 ####[address] [place] [address] WBC corrected for nucl RBC Auto (Bld) [#/Vol] 6.1 E9/L Normal 4.0-11.0 [facility] Comment on above: Performed By: #### 2 597026, 31094206, 99128749, 3953365, 14361886, 5234861 ####[facility] [address] [place] [address] CHEMISTRYOrdered By: SYSTEM SYSTEM on 01-22-2023 25-hydroxyvitamin D3 [Mass/Vol] 22.0 ng/mL Low 30.0 - 100.0 ng/mL [facility] Rem[facility] Troponin I.cardiac [Mass/Vol] 5.70 pg/mL Low 15.90 - 38.40 pg/mL [facility] Remisol Troponin I.cardiac [Mass/Vol] 7.20 pg/mL Low 15.90 - 38.40 pg/mL [facility] Troponin I.cardiac [Mass/Vol] 7.60 pg/mL Low 15.90 - 38.40 pg/mL [facility] Remisol Anion gap [Moles/Vol] 13 mmol/L Normal 6 - 16 mEq/L [facility] Remisol Calcium [Mass/Vol] 8.6 mg/dL Low 8.9 - 11. 1 mg/dL [facility] Remisol Chloride [Moles/Vol] 105 mmol/L Normal 101 - 1 11 mmol/L [facility] CO2 [Moles/Vol] 24 mmol/L Normal 21 - 31 mmol/L [facility] Creatinine [Mass/Vol] 1.2 mg/dL Normal 0.5 - 1.3 mg/dL [facility] GFR/1.73 sq M.predicted among blacks MDRD (S/P/Bld) [Vol rate/Area] mL/min/1.73 m2 Normal >=59mL/min/1 .73 m2 FT Chem S GFR/1.73 sq M.predicted among non-blacks MDRD (S/P/Bld) [Vol rate/Area] 60 mL/min/1.73 m2 Normal >=59mL/min/1 .73 m2 [facility] Chem S Glucose [Mass/Vol] 227 mg/dL High 55 - 199 mg/dL [facility] Remisol Potassium [Moles/Vol] 4.0 mmol/L Normal 3.5 - 5.3 mmol/L [facility] [place] Sodium [Moles/Vol] 138 mmol/L Normal 135 - 145 mmol/L [facility] Urea nitrogen [Mass/Vol] 25 mg/dL High 5 - 21 mg/dL [facility] Urea nitrogen/Creatinine [Mass ratio] 21 mg/mg High 10 - 20 [facility] [place] COAGULATIONOrdered By: Nusrat Aquino on 01-22-2023 aPTT Coag (PPP) [Time] 31.4 s Normal 25.1 - 36.5 second(s) [facility] INR Coag (PPP) [Relative time] 1.1 {INR} Invalid Interpretation Code [facility] PT Coag (PPP) [Time] 11.8 s Normal 9.4 - 1 2.5 second(s) [facility] Capillary Glucose POCon 01-04 Glucose [Mass/Vol] 221 mg/dL High 55-99 [facility] Comment on above: Result Comment: Clemente MCCLAIN Performed By: #### 2 [id number] ####[facility] [address] [place] [address] Glucose [Mass/Vol] 127 mg/dL High 55-99 [facility] Comment on above: Result Comment: Clemente MCCLAIN Performed By: #### 2 [id number] ####[facility] [address] [place] [address] Glucose [Mass/Vol] 131 mg/dL High 55-99 [facility] Comment on above: Result Comment: Clemente MCCLAIN Performed By: #### 2 [id number] ####[facility] [address] [place] [address] Consent for Treatmenton 01-04 Consent for Treatment [id number]#1.0 0CD:127 Normal [facility] ED Clinical Summaryon 2022 ED Clinical Summary Normal [facility] ED Note-Physicianon 01-23-20 ED Note-Physician Normal [facility] Comment on above: Result Comment: Elec tronically Signed By: Vivek Wilder DO\.br\Date and Time Signed: 01/22/23 03:16 EDT ED Patient Education Noteon 01-22-2023 ED Patient Education Note Normal [facility] ED Patient Summaryon 023 ED Patient Summary Normal [facility] EEGon 01-22-2023 EEG Normal [facility] Comment on above: Result Comment: Elec tronically Signed By: Lilia Castanon MD\.br\Date and Time Signed: 01/22/23 10:31 EDT EMS Documentationon 01-23-20 EMS Documentation Normal [facility] HEMATOLOGYOrdered By: SYSTEM SYSTEM on 01-22-2023 Basophils/100 WBC (Bld) 1.8 % Normal 0.0 - 2.0 % [facility] Basophils/Leukocytes Auto (Bld) [Pure # fraction] 0.1 E9/L Normal 0.0 - 0.2 E9/L [facility] Eosinophils/100 WBC (Bld) 8.7 % High 0.0 - 8.0 % [facility] Eosinophils/Leukocytes Auto (Bld) [Pure # fraction] 0.5 E9/L Normal 0.0 - 0.5 E9/L [facility] Lymphocytes/100 WBC (Bld) 37.2 % Normal 14.0 - 50.0 % [facility] Lymphocytes/Leukocytes Auto (Bld) [Pure # fraction] 2.3 E9/L Normal 1.0 - 4.0 E9/L [facility] Monocytes/100 WBC (Bld) 7.2 % Normal 4.0 - 14.0 % [facility] Monocytes/Leukocytes Auto (Bld) [Pure # fraction] 0.4 E9/L Normal 0.2 - 1.0 E9/L [facility] Neutrophils/100 WBC (Bld) 45.1 % Normal 36.0 - 75.0 % [facility] Neutrophils/Leukocytes Auto (Bld) [Pure # fraction] 2.7 E9/L Normal 2.0 - 7.5 E9/L [facility] HEMATOLOGYOrdered By: Edilia Aquino on 01-22-2023 Erythrocyte distribution width (RBC) [Ratio] 14.8 % High 10.9 - 14.2 % [facility] Hematocrit (Bld) [Volume fraction] 33.8 % Low 37.7 - 49.0 % [facility] Hemoglobin (Bld) [Mass/Vol] 10.9 g/dL Low 13.5 - 17.5 gm/dL [facility] MCH (RBC) [Entitic mass] 28.2 pg Normal 27.0 - 34.0 pg [facility] MCHC (RBC) [Mass/Vol] 32.4 g/dL Normal 31.4 - 36.0 gm/dL [facility] MCV (RBC) [Entitic vol] 87.1 fL Normal 80.0 - 100.0 fL [facility] Platelet mean volume (Bld) [Entitic vol] 9.4 fL Normal 6.4 - 10.8 fL [facility] Platelets (Bld) [#/Vol] 215.0 E9/L Normal 150.0 - 500.0 E9/L [facility] RBC (Bld) [#/Vol] 3.9 E12/L Low 4.3 - 5.9 E12/L [facility] WBC corrected for nucl RBC Auto (Bld) [#/Vol] 6.1 E9/L Normal 4.0 - 11.0 E9/L [facility] Interdisciplinary Note - Hermelindo e Manageron 01-22-2023 Interdisciplinary Note - Oncology Registrar [facility] Comment on above: Result Comment: Elec tronically Signed By: Luba GONZALEZ, Mily\.francie\Date and Time Signed: 01/22/23 12:45 EDT Interdisciplinary Note - Hortensia n 01-22-2023 Interdisciplinary Note - OT OT order received and chart review completed. Per RN, hold OT eval this date as pt is very lethargic. Normal [facility] Monitor Recordon 01-22-2023 Monitor Record [id number]#1. 00CD:127 Normal [facility] Monitor Record [id number]#1. 00CD:127 Normal [facility] Mcc Recordson 01-22 Mcc Records [id number]#1. 00CD:127 Normal [facility] PT & PTTon 01-22-2023 aPTT Coag (PPP) [Time] 31.4 second(s) Normal 25.1-36.5 [facility] Comment on above: Result Comment: Para meter 15 days - 4 weeks 1 - 5 months 6 - 11 months 1 - 5 years 6 - 10 years 11 - 17 years PTT Mean: 35.4 (27.6-45.6) Mean: 33.5 (24.8-40.7) Mean: 32.4 (25.1-40.7) Mean: 31.6 (24.0-39.2) Mean: 31.6 (26.9-38.7) Mean: 31.0 (24.6-38.4) Pediatric Reference ranges were obtained from a study by Param Ruiz et al. prepared from 1437 samples obtained at 7 different centers using the same coagulation reagent and instrumentation as [facility]. Currently there are no coagulation studies available worldwide for children to 14 days, and no normal ranges. Heparin therapeutic range (represented by Anti-Factor Xa activity of 0.2 - 0.4 U/mL) corresponds to PTT of 56.6 - 109.0 sec. Performed By: #### 2 [id number], [id number], 44976768, 2643623, 05634643, 9111328 ####[facility] [address] [place] [address] INR Coag (PPP) [Relative time] 1.1 {INR} Invalid Interpretation Code [facility] Comment on above: Result Comment: INR results are specifically intended to assess patients stabilized on long-term Anticoagulation therapy suggested INR?s ?Less Intensive Anticoagulation? 2.0 ? 3.0Conventional Range 3.0 ? 4.5 Performed By: #### 2 923537, 46724726, 01789152, 5908536, 38125332, 1645437 ####[facility] [address] [place] [address] PT Coag (PPP) [Time] 11.8 second(s) Normal 9.4-12.5 [facility] Comment on above: Result Comment: 15 d ays - 4 weeks 1 - 5 months 6 -11 months 1 ? 5 years 6 ? 10 years 11 -17 years Mean: 11.2 (9.5 ? 12.6) Mean: 11.0 (9.7 ? 12.8) Mean: 11.0 (9.8 ? 13.0) Mean: 11.3 (9.9 ? 13.4) Mean: 11.7 (10.0 ? 14.6) Mean: 11.8 (10.0 - 14.1) Pediatric Reference ranges were obtained from a study by Param Ruiz et al. prepared from 1437 samples obtained at 7 different centers using the same coagulation reagent and instrumentation as [facility]. Currently there are no coagulation studies available worldwide for children to 14 days, and no normal ranges. Performed By: #### 2 574870, 07908687, 18789452, 4544820, 80261945, 9462976 ####[facility] [address] [place] [address] Pre-Arrival Noteon 3 Pre-Arrival Note Normal [facility] Pre-Arrival Note Normal [facility] Troponin 0 Hr.on 01-22-2023 Troponin I.cardiac [Mass/Vol] 6.90 pg/mL Low 15.90-38.40 [facility] Comment on above: Result Comment: The 95% CI (Confidence Interval) PPV (Positive Predictive Value) for myocardial infarction in females is 38 pg/mL, in males 51 pg/mL. The results should be used in conjunction with clinical conditions of myocardial infarction.(Access High Sensitivity Troponin I Instructions For Use, Trinh Matilda, May 2018) Performed By: #### 2 348360, 35041841, 98677522, 3051201, 77256525, 1762986 ####[facility] [address] [place] [address] Troponin 3 Hr.on 01-22-2023 Troponin I.cardiac [Mass/Vol] 7.60 pg/mL Low 15.90-38.40 [facility] Comment on above: Result Comment: The 95% CI (Confidence Interval) PPV (Positive Predictive Value) for myocardial infarction in females is 38 pg/mL, in males 51 pg/mL. The results should be used in conjunction with clinical conditions of myocardial infarction.(Access High Sensitivity Troponin I Instructions For Use, [employer], May 2018) Performed By: #### 1 [id number] ####[facility] [address] [place] [address] Troponin 6 Hr.on 01-22-2023 Troponin I.cardiac [Mass/Vol] 7.20 pg/mL Low 15.90-38.40 [facility] Comment on above: Result Comment: The 95% CI (Confidence Interval) PPV (Positive Predictive Value) for myocardial infarction in females is 38 pg/mL, in males 51 pg/mL. The results should be used in conjunction with clinical conditions of myocardial infarction.(Access High Sensitivity Troponin I Instructions For Use, [employer], May 2018) Performed By: #### 1 [id number] ####[facility] [address] [place] [address] Troponin 9 Hr.on 01-22-2023 Troponin I.cardiac [Mass/Vol] 5.70 pg/mL Low 15.90-38.40 [facility] Comment on above: Result Comment: The 95% CI (Confidence Interval) PPV (Positive Predictive Value) for myocardial infarction in females is 38 pg/mL, in males 51 pg/mL. The results should be used in conjunction with clinical conditions of myocardial infarction.(Access High Sensitivity Troponin I Instructions For Use, [employer], May 2018) Performed By: #### 1 [id number] ####[facility] [address] [place] [address] Vitamin D 25 Hydroxyon 01-22 25-hydroxyvitamin D3 [Mass/Vol] 22.0 ng/mL Low 30.0-100.0 [facility] Comment on above: Result Comment: Vit castellano D deficiency has been defined as a level of serum 25-OH vitamin D less than 20 ng/mL (1,2) by the [place] of Medicine and an Endocrine Society practice guideline. The Endocrine Society further defined vitamin D insufficiency as a level between 21 and 29 ng/mL (2). 1. IOM ([place] of Medicine). 2010. Dietary reference intakes for calcium and D. [place]: The National Academies Press. 2. Mary MF, Mg MCKEON, Tari THOMAS, et al. Evaluation, treatment, and prevention of vitamin D deficiency: an Endocrine Society clinical practice guideline. JCEM. 2010; 96 (7):1911-30. Performed By: #### 5 [id number] ####[facility] [address] [place] [address] XR Chest Single Viewon 01-22 XR Chest Single View Normal [facility] eGFRon 01-22-2023 GFR/1.73 sq M.predicted among blacks MDRD (S/P/Bld) [Vol rate/Area] mL/min/{1.73_m2} Normal >=59 [facility] Comment on above: Order Comment: Order added by Discern Expert. Result Comment: eGFR is race adjusted. AA=. Performed By: #### 2 029669, 25949521, 18688126, 4480991, 32632564, 7271704 ####[facility] [address] [place] [address] GFR/1.73 sq M.predicted among non-blacks MDRD (S/P/Bld) [Vol rate/Area] 60 mL/min/1.73 m2 Normal >=59 [facility] Comment on above: Order Comment: Order added by Discern Expert. Result Comment: Hospice Care Transitions Coordinator lokesh kidney disease could be indicated at eGFR's of less than 60 mL/min/1.73m2. Kidney failure is indicated at less than 15 mL/min/1.73m2. Performed By: #### 2 994746, 73811957, 64390300, 2911698, 25315269, 0265721 ####[facility] [address] [place] [address] Coding Summary.on 01-21-2023 Coding Summary. Normal [facility] Consent for Procedure/Surger yon 01-21-2023 Consent for Procedure/Surgery [id number]#1. 00CD:127 Normal [facility] Discharge Instructionson Discharge Instructions [id number]#1. 00CD:127 Normal [facility] Transfer Documentson 023 Transfer Documents [id number]#1. 00CD:127 Normal [facility] Capillary Glucose POCon 01-03 Glucose [Mass/Vol] 172 mg/dL High 55-99 [facility] Comment on above: Result Comment: Clemente christopher RN/ Performed By: #### 2 [id number] ####[facility] [address] [place] [address] Glucose [Mass/Vol] 119 mg/dL High 55-99 [facility] Comment on above: Result Comment: Clemente MCCLAIN Performed By: #### 2 [id number] ####[facility] [address] [place] [address] Discharge Note-Nursingon Discharge Note-Nursing Normal [facility] Inpatient Clinical Summaryon 01-20-2023 Inpatient Clinical Summary [facility] Inpatient Patient Summaryon 01-20-2023 Inpatient Patient Summary [facility] Interdisciplinary Note - Hermelindo e Manageron 01-20-2023 Interdisciplinary Note - Oncology Registrar [facility] Comment on above: Result Comment: Elec tronically Signed By: Brianna Adams.br\Date and Time Signed: 01/20/23 14:39 EDT Message from Medicareon 01-03 Message from Medicare [id number]#1. 00CD:127 Normal [facility] Monitor Recordon 01-20-2023 Monitor Record [id number]#1. 00CD:127 Normal [facility] Monitor Record [id number]#1. 00CD:127 Normal [facility] Monitor Record [id number]#1. 00CD:127 Normal [facility] Stress EKG Tracingson 2022 Stress EKG Tracings [id number]#1. 00CD:127 Normal [facility] Auto Diffon 01-19-2023 Basophils/100 WBC (Bld) 0.7 % Normal 0.0-2.0 [facility] Comment on above: Order Comment: Order Added by Discern Expert. Performed By: #### 1 0495774, 5856880, 9510711, 8194959, 3031995 ####[facility] [address] [place] [address] Basophils/Leukocytes Auto (Bld) [Pure # fraction] 0.0 E9/L Normal 0.0-0.2 [facility] Comment on above: Order Comment: Order Added by Discern Expert. Performed By: #### 1 0408030, 3962514, 5451529, 8626678, 3887182 ####[address] [address] Eosinophils/100 WBC (Bld) 10.3 % High 0.0-8.0 [facility] Comment on above: Order Comment: Order Added by Discern Expert. Performed By: #### 1 8863983, 3421400, 1431204, 1836049, 6413698 ####[address] [address] Eosinophils/Leukocytes Auto (Bld) [Pure # fraction] 0.7 E9/L High 0.0-0.5 [facility] Comment on above: Order Comment: Order Added by Discern Expert. Performed By: #### 1 2873796, 9705530, 4236198, 8200502, 7436053 ####[address] [address] Lymphocytes/100 WBC (Bld) 38.3 % Normal 14.0-50.0 [facility] Comment on above: Order Comment: Order Added by Discern Expert. Performed By: #### 1 4873310, 6868105, 0505576, 4005399, 4747532 ####[address] [place] [address] Lymphocytes/Leukocytes Auto (Bld) [Pure # fraction] 2.5 E9/L Normal 1.0-4.0 [facility] Comment on above: Order Comment: Order Added by Discern Expert. Performed By: #### 1 2760715, 8027833, 8874769, 9166787, 2124688 ####[address] [place] [address] Monocytes/100 WBC (Bld) 6.6 % Normal 4.0-14.0 [facility] Comment on above: Order Comment: Order Added by Discern Expert. Performed By: #### 1 4670414, 5901286, 5799154, 6867445, 5407528 ####[address] [address] Monocytes/Leukocytes Auto (Bld) [Pure # fraction] 0.4 E9/L Normal 0.2-1.0 [facility] Comment on above: Order Comment: Order Added by Discern Expert. Performed By: #### 1 4489044, 4024545, 6409672, 4306254, 2182096 ####[address] [address] Neutrophils/100 WBC (Bld) 44.1 % Normal 36.0-75.0 [facility] Comment on above: Order Comment: Order Added by Pearl Expert. Performed By: #### 1 9463562, 5314838, 1717451, 8801063, 6185738 ####[address] [address] Neutrophils/Leukocytes Auto (Bld) [Pure # fraction] 2.8 E9/L Normal 2.0-7.5 [facility] Comment on above: Order Comment: Order Added by Pearl Expert. Performed By: #### 1 7203091, 6049622, 5117945, 9586678, 3692701 ####[address] [address] BMPon 01-19-2023 Anion gap [Moles/Vol] 10 mmol/L Normal 6-16 [facility] Comment on above: Performed By: #### 1 3453647, 9843390, 1750074, 3802968, 1253744 ####[facility] [address] [place] [address] Calcium [Mass/Vol] 8.6 mg/dL Low 8.9-11.1 [facility] Comment on above: Performed By: #### 1 7626099, 8708508, 7659271, 7121050, 2372918 ####[facility] [address] [place] [address] Chloride [Moles/Vol] 108 mmol/L Normal 101-111 [facility] Comment on above: Performed By: #### 1 1708287, 9023959, 9833776, 3460077, 7523541 ####[facility] [address] [facility] [place] [address] CO2 [Moles/Vol] 27 mmol/L Normal 21-31 [facility] Comment on above: Performed By: #### 1 0211709, 2716778, 5997168, 6299185, 5891533 ####[facility] [address] [place] [address] Creatinine [Mass/Vol] 0.8 mg/dL Normal 0.5-1.3 [facility] Comment on above: Performed By: #### 1 1762541, 6747073, 9951866, 2546632, 5247176 ####[facility] [address] [place] [address] Glucose [Mass/Vol] 118 mg/dL Normal 55-199 [facility] Comment on above: Result Comment: If t his glucose result represents a fasting glucose, interpretation should refer to the following reference range: 55-99 mg/dL Performed By: #### 1 4791144, 3543946, 2654919, 8952323, 2389566 ####[facility] [address] [facility] [address] Potassium [Moles/Vol] 3.7 mmol/L Normal 3.5-5.3 [facility] Comment on above: Performed By: #### 1 2325521, 3264525, 8732101, 6939484, 1859446 ####[facility] [address] [place] [address] Sodium [Moles/Vol] 141 mmol/L Normal 135-145 [facility] Comment on above: Performed By: #### 1 2088462, 9398480, 2105751, 7557918, 3010679 ####[facility] [address] [place] [address] Urea nitrogen [Mass/Vol] 25 mg/dL High 5-21 [facility] Comment on above: Performed By: #### 1 1766999, 4058432, 0242800, 2961899, 0805325 ####[facility] [address] [place] [address] Urea nitrogen/Creatinine [Mass ratio] 31 No Units High 10-20 [facility] Comment on above: Performed By: #### 1 0048439, 4407334, 9399505, 4171640, 3347616 ####[facility] [address] [place] [address] CBC w/ Auto Diffon 3 Erythrocyte distribution width (RBC) [Ratio] 14.8 % High 10.9-14.2 [facility] Comment on above: Performed By: #### 1 4596176, 0055485, 9696089, 4790451, 9847654 ####[address] [place] [address] Hematocrit (Bld) [Volume fraction] 33.7 % Low 37.7-49.0 [facility] Comment on above: Performed By: #### 1 9879854, 5252300, 3902535, 3720814, 8582827 ####[facility] [address] [place] [address] Hemoglobin (Bld) [Mass/Vol] 11.0 g/dL Low 13.5-17.5 [facility] Comment on above: Performed By: #### 1 0178378, 5462502, 0609060, 5764528, 6547635 ####[facility] [address] [place] [address] MCH (RBC) [Entitic mass] 28.7 pg Normal 27.0-34.0 [facility] Comment on above: Performed By: #### 1 5741369, 2960878, 3926493, 4719775, 6778515 ####[address] [place] [address] MCHC (RBC) [Mass/Vol] 32.7 g/dL Normal 31.4-36.0 [facility] Comment on above: Performed By: #### 1 2153260, 2366456, 2627056, 3910662, 5286542 ####[address] MCV (RBC) [Entitic vol] 87.7 fL Normal 80.0-100.0 [facility] Comment on above: Performed By: #### 1 8940962, 1679839, 0206972, 1435637, 3751335 ####[address] [address] Platelet mean volume (Bld) [Entitic vol] 8.5 fL Normal 6.4-10.8 [facility] Comment on above: Performed By: #### 1 6129674, 9958926, 0752590, 5232044, 6244172 ####[address] [address] Platelets (Bld) [#/Vol] 208.0 E9/L Normal 150.0-500.0 [facility] Comment on above: Performed By: #### 1 8027179, 2606961, 6706855, 2593518, 3023413 ####[address] [address] RBC (Bld) [#/Vol] 3.8 E12/L Low 4.3-5.9 [facility] Comment on above: Performed By: #### 1 3654858, 9068433, 4511841, 3900059, 7567943 ####[facility] [address] [place] [address] WBC corrected for nucl RBC Auto (Bld) [#/Vol] 6.5 E9/L Normal 4.0-11.0 [facility] Comment on above: Performed By: #### 1 8335926, 6590998, 1475417, 2797786, 0877691 ####[address] [place] [address] Capillary Glucose POCon 01-03 Glucose [Mass/Vol] 158 mg/dL High 55-99 [facility] Comment on above: Result Comment: Clemente MCCLAIN Performed By: #### 2 06941780 ####[address] [address] Glucose [Mass/Vol] 149 mg/dL High 55-99 [facility] Comment on above: Result Comment: Clemente MCCLAIN Performed By: #### 2 52548089 ####[address] [address] Glucose [Mass/Vol] 111 mg/dL High 55-99 [facility] Comment on above: Result Comment: Clemente MCCLAIN Performed By: #### 2 98333073 ####[address] [place] [address] Glucose [Mass/Vol] 104 mg/dL High 55-99 [facility] Comment on above: Result Comment: Clemente MCCLAIN Performed By: #### 2 31550721 ####[address] [address] Interdisciplinary Note - Hermelindo e Manageron 01-19-2023 Interdisciplinary Note - Oncology Registrar Normal [facility] Comment on above: Result Comment: Elec tronically Signed By: Brianna Adams\Date and Time Signed: 01/19/23 15:20 EDT Magnesiumon 01-19-2023 Magnesium [Mass/Vol] 1.6 mg/dL Normal 1.3-2.4 [facility] Comment on above: Performed By: #### 1 8490949, 6222169, 8525973, 0006144, 6253570 ####[facility] [address] [place] [address] Monitor Recordon 01-19-2023 Monitor Record [id number]#1. 00CD:127 Normal [facility] Monitor Record [id number]#1. 00CD:127 Normal [facility] Monitor Record [id number]#1. 00CD:127 Normal [facility] Monitor Record [id number]#1. 00CD:127 Normal [facility] Progress Note-Physicianon Progress Note-Physician [facility] Comment on above: Result Comment: Elec tronically Signed By: Claudio Moseley MD\.br\Date and Time Signed: 01/19/23 15:51 EDT Progress Note-Physician Normal [facility] Comment on above: Result Comment: Elec tronically Signed By: Saira GONZALEZ, Rajni Arteaga\.br\Date and Time Signed: 01/19/23 07:30 EDT\.br\Electronically Co-Signed By: Kumar Mathias DO\.br\Date and Time Co-Signed: 01/19/23 09:33 EDT Progress Note-Physician Normal [facility] Comment on above: Result Comment: Elec tronically Signed By: Torey LEMONS, Mahesh Johns\.br\Date and Time Signed: 01/19/23 07:50 EDT US CAROTID ART BILon 023 US CAROTID ART MATTHIAS Normal [facility] eGFRon 01-19-2023 GFR/1.73 sq M.predicted among blacks MDRD (S/P/Bld) [Vol rate/Area] mL/min/{1.73_m2} Normal >=59 [facility] Comment on above: Order Comment: Order added by Discern Expert. Result Comment: eGFR is race adjusted. AA=. Performed By: #### 1 0027183, 0379616, 3235655, 3694138, 2884160 ####[facility] [address] [place] [address] GFR/1.73 sq M.predicted among non-blacks MDRD (S/P/Bld) [Vol rate/Area] mL/min/{1.73_m2} Normal >=59 [facility] Comment on above: Order Comment: Order added by Discern Expert. Result Comment: Hospice Care Transitions Coordinator lokesh kidney disease could be indicated at eGFR's of less than 60 mL/min/1.73m2. Kidney failure is indicated at less than 15 mL/min/1.73m2. Performed By: #### 1 1732320, 8583626, 3288293, 9187482, 7561648 ####[facility] [address] [place] [address] Blood Gas Art, with Lytes, G kj, [place] 01-18-2023 FIO2 BG 21 Invalid Interpretation Code [facility] Comment on above: Performed By: #### 4 [id number] ####[facility] [address] [place] [address] Capillary Glucose POCon 01-03 Glucose [Mass/Vol] 202 mg/dL High 55-99 [facility] Comment on above: Result Comment: Clemente MCCLAIN Performed By: #### 2 12238221 ####[facility] [address] [place] [address] Glucose [Mass/Vol] 171 mg/dL High 55-99 [facility] Comment on above: Result Comment: Clemente MCCLAIN Performed By: #### 2 81050856 ####[facility] [address] [place] [address] Glucose [Mass/Vol] 108 mg/dL High 55-99 [facility] Comment on above: Result Comment: Alida jackson Meter Performed By: #### 2 82858357 ####[facility] [address] [place] [address] Glucose [Mass/Vol] 85 mg/dL Normal 55-99 [facility] Comment on above: Result Comment: Clemente christopher RN/ Performed By: #### 2 03649776 ####[facility] [address] [place] [address] Consultation Noteon 01-19-20 Consultation Note Normal [facility] Comment on above: Result Comment: Elec tronically Signed By: Saira GONZALEZ, Rajni Arteaga\.br\Date and Time Signed: 01/18/23 07:10 EDT\.br\Electronically Co-Signed By: Lg LEMONS, Lilia\.br\Date and Time Co-Signed: 01/18/23 09:00 EDT Consultation Note Normal [facility] Comment on above: Result Comment: Elec tronically Signed By: Torey LEMONS, Mahesh Johns\.br\Date and Time Signed: 01/18/23 08:43 EDT Interdisciplinary Note - Hermelindo e Manageron 01-18-2023 Interdisciplinary Note - Oncology Registrar Normal [facility] Comment on above: Result Comment: Elec tronically Signed By: Tommie GONZALEZ, Meredith\.br\Date and Time Signed: 01/18/23 14:57 EDT Interdisciplinary Note - Hortensia n 01-18-2023 Interdisciplinary Note - OT Normal [facility] Interdisciplinary Note - PTo n 01-18-2023 Interdisciplinary Note - PT Normal [facility] Lipid Panelon 01-18-2023 Cholesterol [Mass/Vol] 131 mg/dL Normal 120-200 [facility] Comment on above: Performed By: #### 2 [id number] ####[facility] [address] [place] [address] Cholesterol in HDL [Mass/Vol] 37 mg/dL Invalid Interpretation Code [facility] Comment on above: Result Comment: HDL > or equal to 60 mg/dL: Low cardiovascular riskHDL < 40 mg/dL : High cardiovascular risk Performed By: #### 2 220543 ####[facility] [address] [place] [address] Cholesterol in LDL [Mass/Vol] 77 mg/dL Normal <=129 [facility] Comment on above: Performed By: #### 2 138970 ####[facility] [address] [place] [address] Cholesterol in VLDL [Mass/Vol] 13 mg/dL Normal 7-40 [facility] Comment on above: Performed By: #### 2 929635 ####[facility] [address] [place] [address] Triglyceride [Mass/Vol] 65 mg/dL Normal <=149 [facility] Comment on above: Performed By: #### 2 894686 ####[facility] [address] [place] [address] Monitor Recordon 01-18-2023 Monitor Record [id number]#1. 00CD:127 Normal [facility] Monitor Record [id number]#1. 00CD:127 Normal [facility] Monitor Record [id number]#1. 00CD:127 Normal [facility] Monitor Record [id number]#1. 00CD:127 Normal [facility] Progress Note-Physicianon Progress Note-Physician Normal [facility] Comment on above: Result Comment: Elec tronically Signed By: DONYA LEMONS, Ayaan Wells\.br\Date and Time Signed: 01/18/23 08:30 EDT Troponin 9 Hr.on 01-18-2023 Troponin I.cardiac [Mass/Vol] 7.20 pg/mL Low 15.90-38.40 [facility] Comment on above: Result Comment: The 95% CI (Confidence Interval) PPV (Positive Predictive Value) for myocardial infarction in females is 38 pg/mL, in males 51 pg/mL. The results should be used in conjunction with clinical conditions of myocardial infarction.(Access High Sensitivity Troponin I Instructions For Use, [employer] [place], May 2018) Performed By: #### 1 [id number] ####[facility] [address] [place] [address] UA With Cult Reflexon 2022 Bilirubin Ql (U) Negative Normal Negative [facility] Comment on above: Performed By: #### 1 2069473 ####[facility] [address] [place] [address] Clarity (U) CLEAR Normal Clear [facility] Comment on above: Performed By: #### 1 5142802 ####[address] [address] Color (U) YELLOW Normal Yellow [facility] Comment on above: Performed By: #### 1 1741975 ####[address] [address] Epithelial cells.squamous LM.HPF (Urine sed) [#/Area] 0-2 Normal 0-2 [facility] Comment on above: Performed By: #### 1 0792040 ####[address] [address] Glucose Test strip (U) [Mass/Vol] Negative Normal Negative [facility] Comment on above: Performed By: #### 1 8818882 ####[address] [address] Hemoglobin Ql (U) Negative Normal Negative [facility] Comment on above: Performed By: #### 1 1274064 ####[address] [address] Ketones (U) [Mass/Vol] Negative Normal Negative Fi [facility] Comment on above: Performed By: #### 1 3883325 ####[address] [address] Mckinley.plasma/Mckinley .RBC (Bld) [Mass ratio] 0-3 Normal 0-3 [facility] Comment on above: Performed By: #### 1 6396635 ####[address] [address] Nitrite Ql (U) Negative Normal Negative [facility] Comment on above: Performed By: #### 1 6266530 ####[address] [address] pH (U) 6.0 [pH] Invalid Interpretation Code 5.0-9.0 [facility] Comment on above: Performed By: #### 1 6669548 ####[facility] [address] [place] [address] Protein (U) [Mass/Vol] Negative Normal Negative [facility] Comment on above: Performed By: #### 1 5926483 ####[facility] [address] [place] [address] Specific gravity (U) [Rel density] 1.015 Invalid Interpretation Code 1.005-1.030 [facility] Comment on above: Performed By: #### 1 7876281 ####[facility] [address] [place] [address] Type of Urine collection method Clean Catch Normal [facility] Comment on above: Performed By: #### 1 4952395 ####[address] [address] Urobilinogen Qn (U) 0.2 {Alyssia'U}/dL Normal 0.0-1.0 [facility] Comment on above: Performed By: #### 1 4231262 ####[facility] [address] [place] [address] WBC Auto Ql (U) Negative Normal Negative [facility] Comment on above: Performed By: #### 1 7431375 ####[facility] [address] [place] [address] WBC LM.HPF (Urine sed) [#/Area] 0-5 Normal 0-5 [facility] Comment on above: Performed By: #### 1 1110732 ####[facility] [address] [place] [address] Auto Diffon 01-17-2023 Basophils/100 WBC (Bld) 0.7 % Normal 0.0-2.0 [facility] Comment on above: Order Comment: Order Added by Discern Expert. Performed By: #### 2 396353, 4138833, 9728123, 08694167, 35959616, 18544947 ####[facility] [address] [place] [address] Basophils/Leukocytes Auto (Bld) [Pure # fraction] 0.0 E9/L Normal 0.0-0.2 [facility] Comment on above: Order Comment: Order Added by Discern Expert. Performed By: #### 2 522626, 0117068, 8081927, 95807208, 26522094, 18124520 ####[facility] [address] [place] [address] Eosinophils/100 WBC (Bld) 10.6 % High 0.0-8.0 [facility] Comment on above: Order Comment: Order Added by Discern Expert. Performed By: #### 2 568722, 0789542, 4667508, 94022917, 69534248, 19768612 ####[address] [place] [address] Eosinophils/Leukocytes Auto (Bld) [Pure # fraction] 0.7 E9/L High 0.0-0.5 [facility] Comment on above: Order Comment: Order Added by Discern Expert. Performed By: #### 2 501314, 0107136, 2347988, 37594293, 36056506, 36468577 ####[address] [place] [address] Lymphocytes/100 WBC (Bld) 25.5 % Normal 14.0-50.0 [facility] Comment on above: Order Comment: Order Added by Discern Expert. Performed By: #### 2 042915, 2111247, 7874441, 53665027, 66687249, 80609882 ####[facility] [address] [place] [address] Lymphocytes/Leukocytes Auto (Bld) [Pure # fraction] 1.6 E9/L Normal 1.0-4.0 [facility] Comment on above: Order Comment: Order Added by Discern Expert. Performed By: #### 2 889416, 0404328, 0404872, 93364899, 56043865, 31322592 ####[facility] [address] [place] [address] Monocytes/100 WBC (Bld) 6.7 % Normal 4.0-14.0 [facility] Comment on above: Order Comment: Order Added by Discern Expert. Performed By: #### 2 489402, 7233585, 4747942, 72997727, 73576215, 66214517 ####[facility] [address] [place] [address] Monocytes/Leukocytes Auto (Bld) [Pure # fraction] 0.4 E9/L Normal 0.2-1.0 [facility] Comment on above: Order Comment: Order Added by Discern Expert. Performed By: #### 2 906326, 5087172, 5549370, 71981748, 30690064, 57226011 ####[facility] [address] [place] [address] Neutrophils/100 WBC (Bld) 56.5 % Normal 36.0-75.0 [facility] Comment on above: Order Comment: Order Added by Discern Expert. Performed By: #### 2 425103, 9683149, 7426683, 47186719, 54741365, 21652047 ####[facility] [address] [place] [address] Neutrophils/Leukocytes Auto (Bld) [Pure # fraction] 3.5 E9/L Normal 2.0-7.5 [facility] Comment on above: Order Comment: Order Added by Discern Expert. Performed By: #### 2 404812, 6279565, 9494513, 68967538, 08319266, 83989264 ####[facility] [address] [place] [address] BB Draw & Holdon 01-17-2023 BB D&H Sample drawn for Blo od Ba Normal [facility] Comment on above: Performed By: #### 1 9972855 ####[facility] [address] [place] [address] BMPon 01-17-2023 Creatinine [Mass/Vol] 1.3 mg/dL Normal 0.5-1.3 [facility] Comment on above: Performed By: #### 2 052945, 7204049, 7593978, 61478918, 06167138, 47883101 ####[facility] [address] [place] [address] Urea nitrogen [Mass/Vol] 35 mg/dL High 5-21 [facility] Comment on above: Performed By: #### 2 189928, 5150800, 1697500, 41828636, 04280314, 65828140 ####[facility] [address] [place] [address] Urea nitrogen/Creatinine [Mass ratio] 27 No Units High 10-20 [facility] Comment on above: Performed By: #### 2 112010, 9645183, 1233229, 77747529, 99294793, 81213320 ####[facility] [address] [place] [address] Anion gap [Moles/Vol] 14 mmol/L Normal 6-16 [facility] Comment on above: Performed By: #### 2 233793, 4490467, 9917645, 79248961, 97598557, 14567230 ####[facility] [address] [place] [address] Calcium [Mass/Vol] 8.7 mg/dL Low 8.9-11.1 [facility] Comment on above: Performed By: #### 2 316090, 0554854, 1282860, 56791529, 28555156, 06783926 ####[facility] [address] [place] [address] Chloride [Moles/Vol] 103 mmol/L Normal 101-111 [facility] Comment on above: Performed By: #### 2 008539, 4385048, 6665625, 40864683, 97853404, 63418594 ####[facility] [address] [place] [address] CO2 [Moles/Vol] 24 mmol/L Normal 21-31 [facility] Comment on above: Performed By: #### 2 878443, 2814179, 3219458, 87569978, 01074284, 95466265 ####[facility] [address] [place] [address] Glucose [Mass/Vol] 275 mg/dL High 55-199 [facility] Comment on above: Result Comment: If t his glucose result represents a fasting glucose, interpretation should refer to the following reference range: 55-99 mg/dL Performed By: #### 2 387733, 8765658, 7833878, 80316833, 76504972, 54136821 ####[facility] [address] [place] [address] Potassium [Moles/Vol] 4.1 mmol/L Normal 3.5-5.3 [facility] Comment on above: Performed By: #### 2 739612, 3276949, 5437964, 83586473, 32661047, 88542126 ####[facility] [address] [place] [address] Sodium [Moles/Vol] 137 mmol/L Normal 135-145 [facility] Comment on above: Performed By: #### 2 890479, 8943093, 0792704, 12378981, 14331776, 26695185 ####[facility] [address] [place] [address] Blood Gas Art, with Lytes, G kj, [place] 01-17-2023 a/A Ratio Art 65.10 % Normal >=0.80 [facility] Comment on above: Performed By: #### 4 43061409 ####[facility] [address] [place] [address] AaDO2 Art 35.1 mmHg High 5.0-15.0 [facility] Comment on above: Performed By: #### 4 11335605 ####[facility] [address] [place] [address] Allens Test Positive Normal [facility] Comment on above: Performed By: #### 4 05857600 ####[facility] [address] [place] [address] Base Excess Arterial 3.7 mmol/L Normal >=2.8 [facility] Comment on above: Performed By: #### 4 50777313 ####[address] [address] cCa2+ Art 4.74 mg/dL Normal 4.40-5.30 [facility] Comment on above: Performed By: #### 4 75191732 ####[address] [address] cCl- Art 103.0 mmol/L Normal 101.0-111.0 [facility] Comment on above: Performed By: #### 4 24408667 ####[address] [address] cGlu Art 247 mg/dL High 55-99 [facility] Comment on above: Performed By: #### 4 77647918 ####[address] [address] cK+ Art 4.3 mmol/L Normal 3.5-5.3 [facility] Comment on above: Performed By: #### 4 86200681 ####[address] [address] cLac Art .5 mmol/L Normal .5-2.2 [facility] Comment on above: Performed By: #### 4 06553344 ####[address] [address] wardrobe technician+ Art 141.0 mmol/L Normal 135.0-145.0 [facility] Comment on above: Performed By: #### 4 70529764 ####[address] [address] Drawn by jered tejada Invalid Interpretation Code [facility] Comment on above: Performed By: #### 4 31717344 ####[address] [address] FCOHb Art 1.2 % Low 1.5-4.9 [facility] Comment on above: Result Comment: Refe rendelia rangeNonsmoker <1.5%Smoker <5.0%Heavy Smoker <9.0% Performed By: #### 4 77924286 ####[facility] [address] [facility] [place] [address] FMetHb Art 0.3 % Normal 0.0-1.9 [facility] Comment on above: Performed By: #### 4 74997158 ####[address] [place] [address] FO2Hb Art 92.1 % Low 93.0-100.0 [facility] Comment on above: Performed By: #### 4 89583828 ####[address] [place] [address] HCO3 (Bld) [Moles/Vol] 27.6 mmol/L High 22.0-26.0 [facility] Comment on above: Performed By: #### 4 25998434 ####[address] [place] [address] Hemoglobin (Bld) [Mass/Vol] 10.9 g/dL Low 12.0-17.0 [facility] Comment on above: Performed By: #### 4 98720141 ####[facility] [address] [place] [address] Oxygen saturation in Blood 93.5 % Low 95.0-100.0 [facility] Comment on above: Performed By: #### 4 77957225 ####[facility] [address] [place] [address] P CO2 Arterial 38.8 mmHg Normal 35.0-45.0 [facility] Comment on above: Performed By: #### 4 37093963 ####[facility] [address] [place] [address] P O2 Arterial 65.5 mmHg Low 80.0-100.0 [facility] Comment on above: Performed By: #### 4 44052300 ####[address] [place] [address] pH Arterial 7.462 High 7.350-7.450 [facility] Comment on above: Performed By: #### 4 89208948 ####[address] [address] Sample Site L Radial Normal [facility] Comment on above: Performed By: #### 4 41850931 ####[place] Sample Type Arterial Draw Normal [facility] Comment on above: Performed By: #### 4 66697401 ####[address] CBC w/ Auto Diffon 3 Erythrocyte distribution width (RBC) [Ratio] 15.3 % High 10.9-14.2 [facility] Comment on above: Performed By: #### 2 583303, 1235417, 3659175, 85277832, 58859336, 30641460 ####[address] [address] Hematocrit (Bld) [Volume fraction] 34.4 % Low 37.7-49.0 [facility] Comment on above: Performed By: #### 2 493044, 5106757, 2096815, 63806543, 05318349, 75668272 ####[address] [address] Hemoglobin (Bld) [Mass/Vol] 11.1 g/dL Low 13.5-17.5 [facility] Comment on above: Performed By: #### 2 634758, 4302036, 4507883, 77244939, 80155292, 54648604 ####[facility] [address] [place] [address] MCH (RBC) [Entitic mass] 28.3 pg Normal 27.0-34.0 [facility] Comment on above: Performed By: #### 2 1009[address], 2176952, 0020753, 54546720, 82451108, 48925379 ####[facility] [address] [place] [address] MCHC (RBC) [Mass/Vol] 32.2 g/dL Normal 31.4-36.0 [facility] Comment on above: Performed By: #### 2 216435, 0681311, 9175414, 74389541, 25904172, 95221265 ####[address] [address] MCV (RBC) [Entitic vol] 87.8 fL Normal 80.0-100.0 [facility] Comment on above: Performed By: #### 2 454213, 0673271, 1892652, 56904645, 49858349, 86063261 ####[address] [address] Platelet mean volume (Bld) [Entitic vol] 8.9 fL Normal 6.4-10.8 [facility] Comment on above: Performed By: #### 2 112540, 9012004, 2630589, 04155231, 65929086, 53945535 ####[address] [address] Platelets (Bld) [#/Vol] 217.0 E9/L Normal 150.0-500.0 [facility] Comment on above: Performed By: #### 2 588928, 8825392, 8535411, 75694465, 47001832, 96334844 ####[address] [address] RBC (Bld) [#/Vol] 3.9 E12/L Low 4.3-5.9 [facility] Comment on above: Performed By: #### 2 276341, 2832377, 3481896, 62908067, 64687720, 43091560 ####[address] [place] [address] WBC corrected for nucl RBC Auto (Bld) [#/Vol] 6.3 E9/L Normal 4.0-11.0 [facility] Comment on above: Performed By: #### 2 710693, 0871082, 6024691, 78038830, 60693201, 12339642 ####[facility] [address] [place] [address] CT Head or Brain w/o Contras ton 01-17-2023 CT Head or Brain w/o Contrast Normal [facility] CT Spine Cervical w/o Contra ston 01-17-2023 CT Spine Cervical w/o Contrast Normal [facility] Capillary Glucose POCon 01-03 Glucose [Mass/Vol] 226 mg/dL High 55-99 [facility] Comment on above: Result Comment: Clemente christopher RN/ Performed By: #### 2 66746159 ####[facility] [address] [place] [address] Glucose [Mass/Vol] 172 mg/dL High 55-99 [facility] Comment on above: Result Comment: Clemente MCCLAIN Performed By: #### 2 21638967 ####[facility] [address] [place] [address] Consent for Treatmenton 01-03 Consent for Treatment [id number]#1 .00CD:127 Normal [facility] ED Clinical Summaryon 2022 ED Clinical Summary Normal [facility] ED Note-Physicianon 01-18-20 ED Note-Physician Normal [facility] Comment on above: Result Comment: Elec tronically Signed By: Ander Dorman PA-C\.br\Date and Time Signed: 01/17/23 16:01 EDT\.br\Electronically Co-Signed By: Katherin Garcia M.D.\.br\Date and Time Co-Signed: 01/17/23 17:21 EDT ED Patient Education Noteon 01-17-2023 ED Patient Education Note Normal [facility] ED Patient Summaryon 023 ED Patient Summary Normal [facility] ED Traumaon 01-17-2023 ED Trauma [id number]#1.0 0CD:127 Normal [facility] EMS Documentationon 01-18-20 EMS Documentation Normal [facility] Monitor Recordon 01-17-2023 Monitor Record [id number]#1. 00CD:127 Normal [facility] Mcc Recordson 01-17 Mcc Records [id number]#1.0 0CD:127 Normal [facility] PT & PTTon 01-17-2023 aPTT Coag (PPP) [Time] 39.0 second(s) High 25.1-36.5 [facility] Comment on above: Order Comment: milla ruiz in xray, waiting by room to collect as soon as they return. [id number] 01/17/2023 14:54:02 EDT Result Comment: Para meter 15 days - 4 weeks 1 - 5 months 6 - 11 months 1 - 5 years 6 - 10 years 11 - 17 years PTT Mean: 35.4 (27.6-45.6) Mean: 33.5 (24.8-40.7) Mean: 32.4 (25.1-40.7) Mean: 31.6 (24.0-39.2) Mean: 31.6 (26.9-38.7) Mean: 31.0 (24.6-38.4) Pediatric Reference ranges were obtained from a study by Param Ruiz et al. prepared from 1437 samples obtained at 7 different centers using the same coagulation reagent and instrumentation as [facility]. Currently there are no coagulation studies available worldwide for children to 14 days, and no normal ranges. Heparin therapeutic range (represented by Anti-Factor Xa activity of 0.2 - 0.4 U/mL) corresponds to PTT of 56.6 - 109.0 sec. Performed By: #### 2 980610, 9817203, 6033146, 04683637, 63199097, 23699490 ####[facility] [address] [place] [address] INR Coag (PPP) [Relative time] 1.4 {INR} Invalid Interpretation Code [facility] Comment on above: Order Comment: patie nt in xray, waiting by room to collect as soon as they return. [email or web address] 01/17/2023 14:54:02 EDT Result Comment: INR results are specifically intended to assess patients stabilized on long-term Anticoagulation therapy suggested INR?s ?Less Intensive Anticoagulation? 2.0 ? 3.0Conventional Range 3.0 ? 4.5 Performed By: #### 2 662212, 3682116, 1465857, 85678435, 41502063, 47392305 ####[facility] [address] [place] [address] PT Coag (PPP) [Time] 15.9 second(s) High 9.4-12.5 [facility] Comment on above: Order Comment: patie nt in xray, waiting by room to collect as soon as they return. [email or web address] 01/17/2023 14:54:02 EDT Result Comment: 15 d ays - 4 weeks 1 - 5 months 6 -11 months 1 ? 5 years 6 ? 10 years 11 -17 years Mean: 11.2 (9.5 ? 12.6) Mean: 11.0 (9.7 ? 12.8) Mean: 11.0 (9.8 ? 13.0) Mean: 11.3 (9.9 ? 13.4) Mean: 11.7 (10.0 ? 14.6) Mean: 11.8 (10.0 - 14.1) Pediatric Reference ranges were obtained from a study by Param Ruiz et al. prepared from 1437 samples obtained at 7 different centers using the same coagulation reagent and instrumentation as [facility]. Currently there are no coagulation studies available worldwide for children to 14 days, and no normal ranges. Performed By: #### 2 309096, 5479374, 9046102, 92978937, 95969643, 09854197 ####[facility] [address] [place] [address] Troponin 0 Hr.on 01-17-2023 Troponin I.cardiac [Mass/Vol] 5.80 pg/mL Low 15.90-38.40 [facility] Comment on above: Result Comment: The 95% CI (Confidence Interval) PPV (Positive Predictive Value) for myocardial infarction in females is 38 pg/mL, in males 51 pg/mL. The results should be used in conjunction with clinical conditions of myocardial infarction.([employer] High Sensitivity Troponin I Instructions For Use, [employer], May 2018) Performed By: #### 2 704168, 2122584, 5252030, 76588614, 54112144, 99868694 ####[facility] [address] [place] [address] Troponin 3 Hr.on 01-17-2023 Troponin I.cardiac [Mass/Vol] 6.90 pg/mL Low 15.90-38.40 [facility] Comment on above: Result Comment: The 95% CI (Confidence Interval) PPV (Positive Predictive Value) for myocardial infarction in females is 38 pg/mL, in males 51 pg/mL. The results should be used in conjunction with clinical conditions of myocardial infarction.([employer] High Sensitivity Troponin I Instructions For Use, [employer], May 2018) Performed By: #### 1 9508486 ####[facility] [address] [place] [address] Troponin 6 Hr.on 01-17-2023 Troponin I.cardiac [Mass/Vol] 6.50 pg/mL Low 15.90-38.40 [facility] Comment on above: Result Comment: The 95% CI (Confidence Interval) PPV (Positive Predictive Value) for myocardial infarction in females is 38 pg/mL, in males 51 pg/mL. The results should be used in conjunction with clinical conditions of myocardial infarction.([employer] High Sensitivity Troponin I Instructions For Use, [employer], May 2018) Performed By: #### 1 8331158 ####[facility] [address] [place] [address] XR Chest Single Viewon 01-17 XR Chest Single View Normal Fish er [facility] XR Pelvis 1 or 2 Viewson XR Pelvis 1 or 2 Views Normal Fi [facility] eGFRon 01-17-2023 GFR/1.73 sq M.predicted among blacks MDRD (S/P/Bld) [Vol rate/Area] mL/min/{1.73_m2} Normal >=59 [facility] Comment on above: Order Comment: Order added by Discern Expert. Result Comment: eGFR is race adjusted. AA=. Performed By: #### 2 615089, 6979644, 9994762, 70057932, 55047124, 63212887 ####[facility] [facility] [address] [place] [address] GFR/1.73 sq M.predicted among non-blacks MDRD (S/P/Bld) [Vol rate/Area] 55 mL/min/1.73 m2 Low >=59 [facility] Comment on above: Order Comment: Order added by Discern Expert. Result Comment: Hospice Care Transitions Coordinator lokesh kidney disease could be indicated at eGFR's of less than 60 mL/min/1.73m2. Kidney failure is indicated at less than 15 mL/min/1.73m2. Performed By: #### 2 [id number], [id number], [id number], [id number], [id number], [id number] ####[facility] [address] [place] [address] CBC AUTO DIFFon 01-15-2023 BASO # 0.0 103/ul Normal 0.0-0.1 [facility] Comment on above: Performed By: #### C BC ####[facility] [address] [place] [address]Dr. Yilan Yousif Basophils/100 WBC (Bld) 0.5 % Normal 0.2-2.0 [facility] Comment on above: Performed By: #### C BC ####[facility] [address] [place] [address]Dr. Yilan Yousif EO # 0.5 103/ul Normal 0.0-0.7 [facility] Comment on above: Performed By: #### C BC ####[facility] [address] [place] [address]Dr. Yilan Yousif Eosinophils/100 WBC (Bld) 9.0 % Critically high 0.9-7.0 [facility] Comment on above: Performed By: #### C BC ####[facility] [address] [place], [place] [address]Dr. Areli Yousif Erythrocyte distribution width (RBC) [Ratio] 13.9 % Normal 11.0-15.0 [facility] Comment on above: Performed By: #### C BC ####[facility] [address]cl[address]nu[address] [place], [place] [address]Dr. Areli Yousif Hematocrit (Bld) [Volume fraction] 33.2 % Critically low 42.0-54.0 [facility] Comment on above: Performed By: #### C BC ####[facility] Alreufrt[address] [place], [place] [address]Dr. Areli Yousif Hemoglobin (Bld) [Mass/Vol] 10.3 g/dL Critically low 14.0-18.0 [facility] Comment on above: Performed By: #### C BC ####[facility] Vxpuqlftaa[address] [place], [place] [address]Dr. Areli Yousif IG # 0.01 10e3/ul Normal 0.00-0.03 [facility] Comment on above: Performed By: #### C BC ####[facility] Urcejsyoyd[address] [place], [place] [address]Dr. Areli Benja IG % 0.2 % Normal 0.0-0.5 [facility] Comment on above: Performed By: #### C BC ####[facility] Z[address]ff[address] [place], [place] [address]Dr. Areli Yousif LYMPH # 2.3 103/ul Normal 1.2-3.8 [facility] Comment on above: Performed By: #### C BC ####[facility] Iuoyejxcrg[address] [place], [place] [address]Dr. Tabbytulio Yousif Lymphocytes/100 WBC (Bld) 40.3 % Normal 20.5-60.0 [facility] Comment on above: Performed By: #### C BC ####[facility] Sydqzfxqzf204[address] [place], [place] [address]Dr. Tabbytulio Yousif MANUAL DIFF REQ NO Normal [facility] Comment on above: Performed By: #### C BC ####[facility] Qnibvjanqw[address] [place], [place] [address]Dr. Areli Yousif MCH (RBC) [Entitic mass] 28.1 pg Normal 25.9-34.0 [facility] Comment on above: Performed By: #### C BC ####[facility] [address] [place] [address]Dr. Areli Yousif MCHC (RBC) [Mass/Vol] 31.0 g/dL Normal 29.9-35.2 [facility] Comment on above: Performed By: #### C BC ####[facility] [address] [place] [address]Dr. Areli Benja MCV (RBC) [Entitic vol] 90.7 fL Normal 80.0-94.0 [facility] Comment on above: Performed By: #### C BC ####[facility] [address] [place] [address]Dr. Areli Benja MONO # 0.4 103/ul Normal 0.3-0.8 [facility] Comment on above: Performed By: #### C BC ####[facility] [address] [place] [address]Dr. Areli Benja Monocytes/100 WBC (Bld) 6.1 % Normal 1.7-12.0 [facility] Comment on above: Performed By: #### C BC ####[facility] [address]qrv[address] [place] [address]Dr. Areli Yousif NEUT # 2.5 103/ul Normal 1.4-6.5 [facility] Comment on above: Performed By: #### C BC ####[facility] [address]axwl[address] [place] [address]Dr. Tabbytulio Yousif Neutrophils/100 WBC (Bld) 43.9 % Normal 43.0-75.0 [facility] Comment on above: Performed By: #### C BC ####[facility] [address] [place] [address]Dr. Areli Benja Platelet mean volume (Bld) [Entitic vol] 10.4 fL Normal 9.5-13.5 [facility] Comment on above: Performed By: #### C BC ####[facility] [address]barva[address]cl[address] [place], [place] [address]Xw. Areli Yousif PLT 212 103/ul Normal 150-450 [facility] Comment on above: Performed By: #### C BC ####[facility] [address] [place], [place] [address]Pp. Areli Yousif RBC 3.66 106/ul Critically low 4.70-6.10 [facility] Comment on above: Performed By: #### C BC ####[facility] [address]dp[address] [place], [place] [address]No. Areli Yousif WBC 5.8 103/ul Normal 4.0-11.0 [facility] Comment on above: Performed By: #### C BC ####[facility] [address] [place], [place] [address]Zr. Areli Yousif Covid-19 PCR (CVDTB)on 01-03 SARS-CoV-2 (COVID-19) RNA MANSI+probe Ql (Unsp spec) Not detected Normal NOT DETECTED [facility] Comment on above: Result Comment: When diagnostic testing is negative, the possibility of a false negative should be considered inthe context of a patient's recent exposures and the presence of clinical signs and symptomsconsistent with SARS-CoV-2.This test is not yet approved or cleared by the [place] FDA. When there are no FDA-approved or cleared tests available, and other criteria are met, FDA can make tests available under an emergency access mechanism called an Emergency Use Authorization (EUA). The EUA for this test is supported by the Dsp Engineer of Health and Human Service's declaration that circumstances exist to justify the emergency use of in vitro diagnostics for the detection and/or diagnosis of the virus that causes COVID-19. This EUA will remain in effect for the duration of the COVID-19 declaration justifying emergency of IVDs, unless it is terminated or revoked by the FDA (after which the test may no longer be used). Performed By: #### C VDTBH ####[facility] T[address]axf[address] [place], [place] [address]Pd. Areli Yousif ECHO LIMITED STUDYon 023 ECHO LIMITED STUDY Normal [facility] ER URINE PROFILEon 3 Bilirubin Ql (U) Negative Normal NEGATIVE [facility] Comment on above: Performed By: #### E RUR ####[facility] [address]oglnxj16[address] [place], [place] [address]Dr. Areli Yousif Clarity (U) CLEAR Normal CLEAR [facility] Comment on above: Performed By: #### E RUR ####[facility] Xwcqvlfojl5[address] [place], [place] [address]Dr. Tabbytulio Yousif Color (U) LT. YELLOW Normal YELLOW [facility] Comment on above: Performed By: #### E RUR ####[facility] Kvqyrzrjxm[address] [place], [place] [address]Dr. Areli Yousif ERUAHD A micrscopic examination will be performed if indicated. Normal [facility] Comment on above: Performed By: #### E RUR ####[facility] Qslucjlypu393[address] [place], [place] [address]Dr. Tabbytulio Benja Glucose Ql (U) Negative Normal NEGATIVE [facility] Comment on above: Performed By: #### E RUR ####[facility] Cefiylyejt7156[address] [place], [place] [address]Dr. Tabbytulio Benja Hemoglobin Ql (U) Negative Normal NEGATIVE [facility] Comment on above: Performed By: #### E RUR ####[facility] Noqvprbqey8[address] [place], [place] [address]Dr. Areli Yousif Ketones Ql (U) Negative Normal NEGATIVE [facility] Comment on above: Performed By: #### E RUR ####[facility] Z[address]bprqhhs646[address] [place], [place] [address]Dr. Areli Yousif LEUKOCYTES Negative Normal NEGATIVE [facility] Comment on above: Performed By: #### E RUR ####[facility] [address]zphaipbhh5514[address] [place], [place] [address]Dr. Tabbytulio Benja Nitrite Ql (U) Negative Normal NEGATIVE [facility] Comment on above: Performed By: #### E RUR ####[facility] Cmwxrzusrh793[address] [place], [place] [address]Dr. Areli Yousif pH (U) 6.0 [pH] Normal 5-9 [facility] Comment on above: Performed By: #### E RUR ####[facility] [address]eh[address] [place] [address]DrDenae Yousif SPEC GRAVITY 1.010 Normal 1.005-<=1.02 5 [facility] Comment on above: Performed By: #### E RUR ####[facility] V[address]xngfw[address] [place] [address]Dr. Areli Yousif UA PROTEIN TRACE Normal NEGATIVE/ TRACE [facility] Comment on above: Performed By: #### E RUR ####[facility] Fxupdtjnph96[address] [place], [place] [address]Dr. Areli Yousif UR MICRO IND NOT INDICATED Normal [facility] Comment on above: Performed By: #### E RUR ####[facility] Xeqbgzwscn[address] [place], [place] [address]Dr. Areli Yousif Urobilinogen Qn (U) 0.2 {Alyssia'U}/dL Normal 0.2 - 1. 0 [facility] Comment on above: Performed By: #### E RUR ####[facility] T[address]oufzuld82[address] [place], [place] [address]DrDenae Yousif POINT OF CARE GLUCOSEon 01-03 Glucose [Mass/Vol] 88 mg/dL Normal 74-106 [facility] Comment on above: Performed By: #### P OCGLUC ####[facility] Fmwipzomoj54[address] [place], [place] [address]DrDenae Yousif PROF 14(COMP METB)on 023 Albumin [Mass/Vol] 2.8 g/dL Critically low 3.4-5.0 [facility] Comment on above: Performed By: #### C MP ####[facility] Gffmgigaaa01[address] [place], [place] [address]DrDenae Yousif Albumin/Globulin [Mass ratio] 0.9 {ratio} Normal [facility] Comment on above: Performed By: #### C MP ####[facility] Irpfjeabpy60[address] [place], [place] [address]Dr. Areli Yousif ALP [Catalytic activity/Vol] 76 U/L Normal 46-116 [facility] Comment on above: Performed By: #### C MP ####[facility] [address]sx[address]scnwe[address] [place] [address]Dr. Areli Yousif ALT [Catalytic activity/Vol] 15 U/L Critically low 16-63 [facility] Comment on above: Performed By: #### C MP ####[facility] Ehbloxcyrg[address] [place] [address]Dr. Areli Yousif Anion gap [Moles/Vol] 13.0 mmol/L Normal [facility] Comment on above: Performed By: #### C MP ####[facility] Tgoijuqtdo8474[address] [place], [place] [address]Dr. Areli Yousif AST [Catalytic activity/Vol] 14 U/L Critically low 15-37 [facility] Comment on above: Performed By: #### C MP ####[facility] Btvgemuejp5226[address] [place], [place] [address]Dr. Areli Benja Bilirubin [Mass/Vol] 0.2 mg/dL Normal 0.2-1.0 [facility] Comment on above: Performed By: #### C MP ####[facility] Pctudqwuvx[address] [place], [place] [address]Dr. Areli Benja Calcium [Mass/Vol] 8.9 mg/dL Normal 8.5-10.1 [facility] Comment on above: Performed By: #### C MP ####[facility] Fwqj[address]obos[address] [place], [place] [address]Dr. Areli Benja Chloride [Moles/Vol] 106 mmol/L Normal 98-107 [facility] Comment on above: Performed By: #### C MP ####[facility] Jburtslzrl[address] [place], [place] [address]Dr. Areli Benja CO2 [Moles/Vol] 28.9 mmol/L Normal 21.0-32.0 [facility] Comment on above: Performed By: #### C MP ####[facility] Epmyddlgxo4[address] [place], [place] [address]Dr. Areli Benja Creatinine [Mass/Vol] 1.04 mg/dL Normal 0.70-1.30 [facility] Comment on above: Performed By: #### C MP ####[facility] [address]uswkb[address] [place] [address]Dr. Areli Yousif EGFR-AF ICELANDIC >60 Normal >=60 [facility] Comment on above: Performed By: #### C MP ####[facility] [address]afc[address] [place] [address]Dr. Areli Benja EGFR-NON AF ICELANDIC >60 Normal >=60 [facility] Comment on above: Performed By: #### C MP ####[facility] [address]pg[address] [place] [address]Dr. Areli Benja Globulin (S) [Mass/Vol] 3.2 g/dL Normal [facility] Comment on above: Performed By: #### C MP ####[facility] [address]ste[address] [place] [address]Dr. Areli Benja Glucose [Mass/Vol] 118 mg/dL Critically high 74-106 [facility] Comment on above: Performed By: #### C MP ####[facility] Bncycdvjho[address] [place] [address]Dr. Areli Benja Potassium [Moles/Vol] 3.9 mmol/L Normal 3.5-5.1 [facility] Comment on above: Performed By: #### C MP ####[facility] Erfbkazcoh[address] [place] [address]Dr. Areli Benja Protein [Mass/Vol] 6.0 g/dL Critically low 6.4-8.2 [facility] Comment on above: Performed By: #### C MP ####[facility] C[address]vrahayd[address] [place] [address]Dr. Areli Benja Sodium [Moles/Vol] 144 mmol/L Normal 136-145 [facility] Comment on above: Performed By: #### C MP ####[facility] Jrqwvpnwbg4340 [place] [address]Dr. Areli Benja Urea nitrogen [Mass/Vol] 32.0 mg/dL Critically high 7.0-18.0 [facility] Comment on above: Performed By: #### C MP ####[facility] Wnacywdzrb[address] [place], [place] [address]Dr. Areli Yousif Urea nitrogen/Creatinine [Mass ratio] 30.8 mg/mg Normal [facility] Comment on above: Performed By: #### C MP ####[facility] Pygykxlhuq16[address] [place], [place] [address]Dr. Areli Yousif AMMONIAon 01-14-2023 Ammonia (P) [Moles/Vol] 17 umol/L Normal 11-32 [facility] Comment on above: Performed By: #### A MM ####[facility] Hvgarnqhvi[address] [place], [place] [address]Dr. Areli Yousif CBC AUTO DIFFon 01-14-2023 BASO # 0.0 103/ul Normal 0.0-0.1 [facility] Comment on above: Performed By: #### C BC ####[facility] Mxstgturkt99[address] [place], [place] [address]DrDenae Yousif Basophils/100 WBC (Bld) 0.5 % Normal 0.2-2.0 [facility] Comment on above: Performed By: #### C BC ####[facility] Klrimshiaw310[address] [place], [place] [address]DrDenae Yousif EO # 0.6 103/ul Normal 0.0-0.7 [facility] Comment on above: Performed By: #### C BC ####[facility] Pgpjyxagzu9[address] [place], [place] [address]DrDenae Yousif Eosinophils/100 WBC (Bld) 9.3 % Critically high 0.9-7.0 [facility] Comment on above: Performed By: #### C BC ####[facility] Udirpbqqzh39[address] [place], [place] [address]DrDenae Yousif Erythrocyte distribution width (RBC) [Ratio] 14.1 % Normal 11.0-15.0 [facility] Comment on above: Performed By: #### C BC ####[facility] W[address]zcnmxhc[address] [place], [place] [address]Dr. Areli Yousif Hematocrit (Bld) [Volume fraction] 33.0 % Critically low 42.0-54.0 [facility] Comment on above: Performed By: #### C BC ####[facility] Jgpeakbzdx1098 [place] [address]DrDenae Yousif Hemoglobin (Bld) [Mass/Vol] 10.5 g/dL Critically low 14.0-18.0 [facility] Comment on above: Performed By: #### C BC ####[facility] Mlmqojpjhv8132[address] [place], [place] [address]DrDenae Yousif IG # 0.01 10e3/ul Normal 0.00-0.03 [facility] Comment on above: Performed By: #### C BC ####[facility] Tvphviubex10[address] [place], [place] [address]DrDenae Yousif IG % 0.2 % Normal 0.0-0.5 [facility] Comment on above: Performed By: #### C BC ####[facility] Bioasqucqb15[address] [place], [place] [address]DrDenae Yousif LYMPH # 2.2 103/ul Normal 1.2-3.8 [facility] Comment on above: Performed By: #### C BC ####[facility] Ybraefcbhi9547[address] [place], [place] [address]DrDenae Yousif Lymphocytes/100 WBC (Bld) 35.0 % Normal 20.5-60.0 [facility] Comment on above: Performed By: #### C BC ####[facility] Idpjkzixny3445[address] [place], [place] [address]DrDenae Yousif MANUAL DIFF REQ NO Normal [facility] Comment on above: Performed By: #### C BC ####[facility] Nxjjrpwnvk7220[address] [place], [place] [address]DrDenae Yousif MCH (RBC) [Entitic mass] 28.8 pg Normal 25.9-34.0 [facility] Comment on above: Performed By: #### C BC ####[facility] Zorfgorsyv6[address] [place], [place] [address]DrDenae Yousif MCHC (RBC) [Mass/Vol] 31.8 g/dL Normal 29.9-35.2 [facility] Comment on above: Performed By: #### C BC ####[facility] [address]ailwvgqf2[address] [place] [address]DrDenae Tabbytulio Yousif MCV (RBC) [Entitic vol] 90.4 fL Normal 80.0-94.0 [facility] Comment on above: Performed By: #### C BC ####[facility] Gwwlpsmhze[address] [place], [place] [address]DrDenae Yousif MONO # 0.5 103/ul Normal 0.3-0.8 [facility] Comment on above: Performed By: #### C BC ####[facility] Zweebfifjp034[address] [place], [place] [address]DrDenae Yousif Monocytes/100 WBC (Bld) 7.1 % Normal 1.7-12.0 [facility] Comment on above: Performed By: #### C BC ####[facility] Jheblfthcj6[address] [place], [place] [address]DrDenae Yousif NEUT # 3.1 103/ul Normal 1.4-6.5 [facility] Comment on above: Performed By: #### C BC ####[facility] Cedslxpxio[address] [place], [place] [address]DrDenae Yousif Neutrophils/100 WBC (Bld) 47.9 % Normal 43.0-75.0 [facility] Comment on above: Performed By: #### C BC ####[facility] Dznagcbfmn754[address] [place], [place] [address]DrDenae Yousif Platelet mean volume (Bld) [Entitic vol] 10.8 fL Normal 9.5-13.5 [facility] Comment on above: Performed By: #### C BC ####[facility] Ypjidfqgor[address] [place], [place] [address]DrDenae Yousif PLT 208 103/ul Normal 150-450 [facility] Comment on above: Performed By: #### C BC ####[facility] Qpjnqjpwga[address] [place], [place] [address]DrDenae Yousif RBC 3.65 106/ul Critically low 4.70-6.10 [facility] Comment on above: Performed By: #### C BC ####[facility] [address]izca[address] [place] [address]Dr. Areli Yousif WBC 6.4 103/ul Normal 4.0-11.0 [facility] Comment on above: Performed By: #### C BC ####[facility] Hnnsitxuft[address] [place] [address]Dr. Areli Benja CT CSPINE WO CONon 3 CT CSPINE WO CON Normal [facility] CT HEAD WO CONon 01-14-2023 CT HEAD WO CON Normal [facility] CT LSPINE WO CONon 3 CT LSPINE WO CON Normal [facility] CT TSPINE WO CONon 3 CT TSPINE WO CON Normal [facility] LACTATE/LACTIC ACIDon 2022 Lactate [Moles/Vol] 1.6 mmol/L Normal 0.4-2.0 [facility] Comment on above: Performed By: #### L ACT ####[facility] [address]rnr[address] [place] [address]Dr. Areli Benja PH VENOUS BLOODon 01-14-2023 PCO2 VENOUS 44.9 mmHg Normal 40.0-52.0 [facility] Comment on above: Performed By: #### P HVEN ####[facility] Z[address]welfswz[address] [place] [address]Dr. Areli Yousif pH VENOUS 7.407 Normal 7.330-7.430 [facility] Comment on above: Performed By: #### P HVEN ####[facility] [address]ibctazc[address] [place] [address]Dr. Areli Yousif POINT OF CARE GLUCOSEon 01-03 Glucose [Mass/Vol] 231 mg/dL Critically high 74-106 [facility] Comment on above: Performed By: #### P OCGLUC ####[facility] Blwxlsguha[address] [place] [address]Dr. Areli Yousif PROF 14(COMP METB)on 04-12-2 023 Albumin [Mass/Vol] 2.9 g/dL Critically low 3.4-5.0 [facility] Comment on above: Performed By: #### T FESTUS CMP, HSTROPN ####[facility] X[address]tnrhj25[address] [place] [address]Dr. Areli Yousif Albumin/Globulin [Mass ratio] 0.8 {ratio} Normal [facility] Comment on above: Performed By: #### T FESTUS CMP, HSTROPN ####[facility] Bqafczwiho38[address] [place] [address]Dr. Areli Yousif ALP [Catalytic activity/Vol] 85 U/L Normal 46-116 [facility] Comment on above: Performed By: #### T FESTUS CMP, HSTROPN ####[facility] Tajftsisxm9[address] [place] [address]Dr. Areli Yousif ALT [Catalytic activity/Vol] 16 U/L Normal 16-63 [facility] Comment on above: Performed By: #### T FESTUS CMP, HSTROPN ####[facility] Anhkybaauk[address] [place], [place] [address]Dr. Areli Yousif Anion gap [Moles/Vol] 13.2 mmol/L Normal [facility] Comment on above: Performed By: #### T FESTUS CMP, HSTROPN ####[facility] Ppdptowbar5[address] [place] [address]Dr. Areli Yousif AST [Catalytic activity/Vol] 13 U/L Critically low 15-37 [facility] Comment on above: Performed By: #### T FESTUS, CMP, HSTROPN ####[facility] Elxhkyqsph34[address] [place] [address]Dr. Areli Yousif Bilirubin [Mass/Vol] 0.2 mg/dL Normal 0.2-1.0 [facility] Comment on above: Performed By: #### T FESTUS, CMP, HSTROPN ####[facility] Yfiwcnnefz0865 [place] [address]Dr. Areli Yousif Calcium [Mass/Vol] 9.0 mg/dL Normal 8.5-10.1 [facility] Comment on above: Performed By: #### T SH, CMP, HSTROPN ####[facility] Xaxlevbnyc15[address] [place] [address]Dr. Areli Yousif Chloride [Moles/Vol] 104 mmol/L Normal 98-107 [facility] Comment on above: Performed By: #### T SH, CMP, HSTROPN ####[facility] Kyvazwyniy7[address] [place] [address]Dr. Areli Yousif CO2 [Moles/Vol] 28.3 mmol/L Normal 21.0-32.0 [facility] Comment on above: Performed By: #### T SH, CMP, HSTROPN ####[facility] Ehkgicqnwh[address] [place], [place] [address]Dr. Areli Yousif Creatinine [Mass/Vol] 1.26 mg/dL Normal 0.70-1.30 [facility] Comment on above: Performed By: #### T SH, CMP, HSTROPN ####[facility] Y[address]nqynlomr[address] [place], [place] [address]Dr. Areli Yousif EGFR-AF ICELANDIC >60 Normal >=60 [facility] Comment on above: Performed By: #### T SH, CMP, HSTROPN ####[facility] Nfzcqqsazq66[address] [place], [place] [address]Dr. Areli Yousif EGFR-NON AF ICELANDIC 57 mL/min/1.73m2 Critically low >=60 [facility] Comment on above: Performed By: #### T SH, CMP, HSTROPN ####[facility] Yjbigtussu49[address] [place] [address]Dr. Areli Yousif Globulin (S) [Mass/Vol] 3.5 g/dL Normal [facility] Comment on above: Performed By: #### T SH, CMP, HSTROPN ####[facility] Gnukvxwqhu8[address] [place], [place] [address]Dr. Areli Yousif Glucose [Mass/Vol] 233 mg/dL Critically high 74-106 [facility] Comment on above: Performed By: #### T SH, CMP, HSTROPN ####[facility] Jlhehygmxu3107 [place] [address]Dr. Tabbytulio Yousif Potassium [Moles/Vol] 4.5 mmol/L Normal 3.5-5.1 [facility] Comment on above: Performed By: #### T SH, CMP, HSTROPN ####[facility] Dwrxqrmvip7[address] [place] [address]Dr. Areli Yousif Protein [Mass/Vol] 6.4 g/dL Normal 6.4-8.2 [facility] Comment on above: Performed By: #### T SH, CMP, HSTROPN ####[facility] Sipdnxtptc50[address] [place] [address]Dr. Areli Yousif Sodium [Moles/Vol] 141 mmol/L Normal 136-145 [facility] Comment on above: Performed By: #### T SH, CMP, HSTROPN ####[facility] Ekscbzkzcm[address] [place], [place] [address]Dr. Areli Yousif Urea nitrogen [Mass/Vol] 40.0 mg/dL Critically high 7.0-18.0 [facility] Comment on above: Performed By: #### T SH, CMP, HSTROPN ####[facility] Eyukjsmoxp[address] [place], [place] [address]Dr. Areli Yousif Urea nitrogen/Creatinine [Mass ratio] 31.7 mg/mg Normal [facility] Comment on above: Performed By: #### T SH, CMP, HSTROPN ####[facility] [address]auusyf[address] [place], [place] [address]Dr. Areli Yousif PROTIMEon 01-14-2023 INR Coag (PPP) [Relative time] 1.01 {INR} Normal [facility] Comment on above: Performed By: #### P TT, PT ####[facility] [address] [place], [place] [address]Dr. Areli Yousif INR GUIDELINES SEE BELOW Normal [facility] Comment on above: Result Comment: LANDON RED INR: 2.0 - 3.0 CONDITIONS NOT LISTED BELOW 2.5 - 3.5 FOR PROSTHETIC HEART VALVE REPLACEMENT 2.5 - 3.5 RECURRENT THROMBOSIS Performed By: #### P TT, PT ####[facility] [address] [id number]. Areli Yousif PT Coag (PPP) [Time] 10.7 s Normal 9.0-11.6 [facility] Comment on above: Performed By: #### P TT, PT ####[facility] [address] [id number]. Areli Yousif PTTon 01-14-2023 aPTT Coag (Bld) [Time] 29.4 s Normal 22.3-36.2 [facility] Comment on above: Performed By: #### P TT, PT ####[facility] [address] [address]Dr. Areli Yousif TROPONIN, HIGH SENSITIVITYon 01-14-2023 HSTROP 7.6 pg/mL Normal 4.0-76.1 [facility] Comment on above: Result Comment: CUT- OFF POINTS HAVE BEEN ESTABLISHED BASED ON THE FOURTH UNIVERSAL DEFINITIONS OF MYOCARDIALINFARCTION. THE UPPER REFERENCE LIMIT (URL) OF TROPONIN, DEFINED THE 99TH PERCENTILE OFcTnI DISTRIBUTION IN A REFERENCE POPULATION, HAS BEEN CONFIRMED THE DECISION THRESHOLDFOR NE DIAGNOSIS. Performed By: #### T SH, CMP, HSTROPN ####[facility] [address] [address]Dr. Areli Yousif TSHon 01-14-2023 TSH 2.590 uIU/mL Normal 0.358-3.740 [facility] Comment on above: Performed By: #### T SH, CMP, HSTROPN ####[facility] [address] [address]Dr. Areli Yousif XR CHEST 1 Von 01-14-2023 XR CHEST 1 V Normal [facility] XR KNEE RT 4V or >on 023 XR KNEE RT 4V or > Normal [facility] XR PELVIS 1_2 VIEWSon 2022 XR PELVIS 1_2 VIEWS Normal [facility] Coding Summary.on 01-13-2023 Coding Summary. Normal [facility] Consent for Treatmenton 12-05 Consent for Treatment [id number]#1.0 0CD:127 [facility] Heart and Vascular Office/Cl inic Noteon 01-01-2023 Heart and Vascular Office/Clinic Note [facility] Comment on above: Result Comment: Elec tronically Signed By: Bushra JIMENEZ CNP\.francie\Date and Time Signed: 01/01/23 09:43 EDT Progress Note-Nurseon 2022 Progress Note-Nurse [id number] 04 [id number]#1. 00CD:127 [facility] Progress Note-Nurse [id number] 04 [id number]#1. 00CD:127 [facility] Coding Summary.on 12-29-2022 Coding Summary. [facility] EMS Documentationon 12-27-19 EMS Documentation [facility] Auth for Release of Medical Recordson 12-25-2022 Auth for Release of Medical Records [id number]#1. 00CD:127 [facility] CHEMISTRYOrdered By: Lab ROP User on 12-25-2022 Glucose [Mass/Vol] 214 mg/dL High 55 - 99 mg/dL [facility] POC Subsection Comment on above: Result Comment: Clemente christopher RN/ POC Device SN [id number] Invalid Interpretation Code [facility] POC Subsection POC User ID [id number] Invalid Interpretation Code FT POC Subsection POC Username MARCY BAILEY Invalid Interpretation Code [facility] POC Subsection Glucose [Mass/Vol] 140 mg/dL High 55 - 99 mg/dL [facility] POC Subsection Comment on above: Result Comment: Clemente christopher RN/ POC Device SN [id number] Invalid Interpretation Code [facility] POC Subsection POC User ID [id number] Invalid Interpretation Code [facility] POC Subsection POC Username WEI DOBSON Invalid Interpretation Code [facility] POC Subsection CHEMISTRYOrdered By: SYSTEM SYSTEM on 12-25-2022 Cobalamin (Vitamin B12) [Mass/Vol] 272 pg/mL Normal 50 - 1500 pg/mL [facility] Remisol Ferritin [Mass/Vol] 145 ng/mL Normal 24 - 336 ng/mL [facility] Remisol Folate [Mass/Vol] 15.4 ng/mL Normal >=6.7ng/mL [facility] Re misol Iron [Mass/Vol] 55 ug/dL Normal 35 - 153 mcg/dL [facility] Remisol Iron binding capacity [Mass/Vol] 263 ug/dL Normal 250 - 400 mcg/dL [facility] Remisol LDH [Catalytic activity/Vol] 108 [iU]/d Normal 93 - 218 Int._Unit/L [facility] Remisol Transferrin [Mass/Vol] 188 mg/dL Low 200 - 370 mg/dL [facility] Remisol Capillary Glucose POCon 12-04 Glucose [Mass/Vol] 214 mg/dL High 55-99 [facility] Comment on above: Result Comment: Clemente christopher RN/ Performed By: #### 2 [id number] ####[facility] [address] [place] [address] Glucose [Mass/Vol] 140 mg/dL High 55-99 [facility] Comment on above: Result Comment: Clemente christopher RN/ Performed By: #### 2 [id number] ####[facility] [address] [place] [address] Consent for Procedure/Surger yon 12-25-2022 Consent for Procedure/Surgery [id number]#1. 00CD:127 Normal [facility] Discharge Instructionson Discharge Instructions [id number]#1. 00CD:127 Normal [facility] Discharge Note-Nursingon Discharge Note-Nursing Normal [facility] Ferritinon 12-25-2022 Ferritin [Mass/Vol] 145 ng/mL Normal 24-336 [facility] Comment on above: Result Comment: NORM ALS MEN <30 YRS 16-132 ng/mL MEN >30 YRS 8-338 ng/mL WOMEN (PREMEN) 6-104 ng/mL WOMEN (POSTMEN) 12-210 ng/mL Performed By: #### 2 572096, 4115540, 04666313, 9265633, 9957977, 2393837, 2936165 ####[facility] [address] [place] [address] Folateon 12-25-2022 Folate [Mass/Vol] 15.4 ng/mL Normal >=6.7 [facility] Comment on above: Performed By: #### 2 083524, 5164230, 03133069, 8534110, 4026158, 1665698, 9681704 ####[facility] [address] [place] [address] HEMATOLOGYOrdered By: Gabe Hunter on 12-25-2022 Reticulocytes/100 RBC (Bld) 1.3 % Normal 0.5 - 1.5 % [facility] HemeAutoSS Inpatient Clinical Summaryon 12-25-2022 Inpatient Clinical Summary Normal [facility] Inpatient Patient Summaryon 12-25-2022 Inpatient Patient Summary Normal [facility] Interdisciplinary Note - Hermelindo e Manageron 12-25-2022 Interdisciplinary Note - Oncology Registrar Normal [facility] Comment on above: Result Comment: Elec tronically Signed By: Mily Verduzco RN\.br\Date and Time Signed: 12/25/22 13:34 EDT Interdisciplinary Note - Nut ritionon 12-25-2022 Interdisciplinary Note - Nutrition Normal [facility] Comment on above: Result Comment: Elec tronically Signed By: Carmen DIAZ, VILMA., Linda\.br\Date and Time Signed: 12/25/22 09:43 EDT Interdisciplinary Note - PTo n 12-25-2022 Interdisciplinary Note - PT Normal [facility] Ironon 12-25-2022 Iron [Mass/Vol] 55 microgram/dL Normal 35-153 [facility] Comment on above: Performed By: #### 2 673655, 1970949, 34046976, 7450779, 4273471, 5075342, 3467558 ####[facility] [address] [place] [address] LDHon 12-25-2022 LDH [Catalytic activity/Vol] 108 Int._Unit/L Normal 93-218 [facility] Comment on above: Performed By: #### 2 236083, 6449702, 48882343, 2521710, 7131521, 2629387, 1322039 ####[facility] [address] [place] [address] Monitor Recordon 12-25-2022 Monitor Record [id number]#1.0 0CD:127 Normal [facility] Monitor Record [id number]#1.0 0CD:127 Normal [facility] Monitor Record [id number]#1.0 0CD:127 Normal [facility] Monitor Record [id number] 30 [id number]#1.0 0CD:127 Normal [facility] Retic Counton 12-25-2022 Reticulocytes/100 RBC (Bld) 1.3 % Normal 0.5-1.5 [facility] Comment on above: Performed By: #### 2 093068, 7552493, 98253366, 7285233, 3336853, 7670907, 7427597 ####[address] [place] [address] TIBC Calculatedon 12-25-2022 Iron binding capacity [Mass/Vol] 263 microgram/dL Normal 250-400 [facility] Comment on above: Performed By: #### 2 486254, 4131979, 43294324, 4610546, 5908324, 1023158, 2106642 ####[facility] [address] [place] [address] Transferrin [Mass/Vol] 188 mg/dL Low 200-370 [facility] Comment on above: Performed By: #### 2 079816, 7288691, 94164167, 0268314, 1889484, 5763047, 2013118 ####[address] [place] [address] Transfer Documentson 023 Transfer Documents [id number]#1. 00CD:127 Normal [facility] Vit B12on 12-25-2022 Cobalamin (Vitamin B12) [Mass/Vol] 272 pg/mL Normal 50-1500 [facility] Comment on above: Performed By: #### 2 297711, 4753397, 42243823, 8124836, 3562796, 3820304, 4615312 ####[facility] [address] [place] [address] CHEMISTRYOrdered By: Lab ROP User on 12-24-2022 Glucose [Mass/Vol] 202 mg/dL High 55 - 99 mg/dL [facility] POC Subsection POC Device SN [id number] Invalid Interpretation Code [facility] POC Subsection POC User ID [id number] Invalid Interpretation Code [facility] POC Subsection POC Username SIR BENIGNO PATINO Invalid Interpretation Code [facility] POC Subsection CHEMISTRYOrdered By: SYSTEM SYSTEM on 12-24-2022 Anion gap [Moles/Vol] 14 mmol/L Normal 6 - 16 mEq/L [facility] Remisol Chloride [Moles/Vol] 106 mmol/L Normal 101 - 1 11 mmol/L [facility] Remisol CO2 [Moles/Vol] 24 mmol/L Normal 21 - 31 mmol/L [facility] Remisol Potassium [Moles/Vol] 4.8 mmol/L Normal 3.5 - 5.3 mmol/L [facility] Remisol Sodium [Moles/Vol] 139 mmol/L Normal 135 - 145 mmol/L [facility] Remisol Capillary Glucose POCon 12-04 Glucose [Mass/Vol] 202 mg/dL High 55-99 [facility] Comment on above: Performed By: #### 2 [id number] ####[facility] [address] [place] [address] Glucose [Mass/Vol] 232 mg/dL High 55-99 [facility] Comment on above: Result Comment: Clemente MCCLAIN Performed By: #### 2 [id number] ####[facility] [address] [place] [address] Glucose [Mass/Vol] 212 mg/dL High 55-99 [facility] Comment on above: Result Comment: Clemente MCCLAIN Performed By: #### 2 78320498 ####[facility] [address] [place] [address] Glucose [Mass/Vol] 186 mg/dL High 55-99 [facility] Comment on above: Result Comment: Clemente christopher RN/ Performed By: #### 2 02954091 ####[facility] [address] [place] [address] Coding Queryon 12-24-2022 Coding Query Normal [facility] Interdisciplinary Note - Hermelindo e Manageron 12-24-2022 Interdisciplinary Note - Oncology Registrar Normal [facility] Comment on above: Result Comment: Elec tronically Signed By: Luba GONZALEZ, Mily\.francie\Date and Time Signed: 12/24/22 09:17 EDT Lyteson 12-24-2022 Anion gap [Moles/Vol] 14 mmol/L Normal 6-16 [facility] Comment on above: Performed By: #### 2 626639 ####[facility] [address] [place] [address] Chloride [Moles/Vol] 106 mmol/L Normal 101-111 [facility] Comment on above: Performed By: #### 2 285320 ####[facility] [address] [place] [address] CO2 [Moles/Vol] 24 mmol/L Normal 21-31 [facility] Comment on above: Performed By: #### 2 468921 ####[facility] [address] [place] [address] Potassium [Moles/Vol] 4.8 mmol/L Normal 3.5-5.3 [facility] Comment on above: Performed By: #### 2 911710 ####[facility] [address] [place] [address] Sodium [Moles/Vol] 139 mmol/L Normal 135-145 [facility] Comment on above: Performed By: #### 2 970490 ####[facility] [address] [place] [address] Monitor Recordon 12-24-2022 Monitor Record [id number]#1.0 0CD:127 Normal [facility] Monitor Record [id number] 30 [id number]#1.0 0CD:127 Normal [facility] Monitor Record [id number] 30 [id number]#1.0 0CD:127 Normal [facility] Progress Note-Physicianon Progress Note-Physician [facility] Comment on above: Result Comment: Elec tronically Signed By: Bushra JIMENEZ CNP\.br\Date and Time Signed: 12/24/22 14:50 EDT\.br\Electronically Co-Signed By: Zia LEMONS, Jaja Dash\.br\Date and Time Co-Signed: 12/25/22 08:49 EDT Progress Note-Physician [facility] Comment on above: Result Comment: Elec tronically Signed By: Bonnie BANEGAS\.br\Date and Time Signed: 12/24/22 10:01 EDT\.br\Electronically Co-Signed By: Bonnie BANEGAS\.br\Date and Time Co-Signed: 12/24/22 10:03 EDT\.br\Electronically Co-Signed By: Eboni LEMONS, John White\.br\Date and Time Co-Signed: 12/24/22 10:10 EDT Capillary Glucose POCon 12-04 Glucose [Mass/Vol] 223 mg/dL [address] Comment on above: Performed By: #### 2 [id number] ####[facility] [address] [place] [address] Glucose [Mass/Vol] 195 mg/dL [address] Comment on above: Result Comment: Clemente christopher RN/ Performed By: #### 2 45121133 ####[facility] [address] [place] [address] Glucose [Mass/Vol] 266 mg/dL [address] Comment on above: Result Comment: Clemente MCCLAIN Performed By: #### 2 72836495 ####[facility] [address] [place] [address] Glucose [Mass/Vol] 169 mg/dL High 55-99 [facility] Comment on above: Result Comment: Clemente MCCLAIN Performed By: #### 2 92853805 ####[facility] [address] [place] [address] AjiN6orb 12-23-2022 HbA1c (Bld) [Mass fraction] 8.0 % High <=5.9 [facility] Comment on above: Performed By: #### 2 457639, 144956529, 3098789, 23099105, 7320472, 3355776 ####[facility] [address] [place] [address] Interdisciplinary Note - Hermelindo e Manageron 12-23-2022 Interdisciplinary Note - Oncology Registrar [facility] Comment on above: Result Comment: Elec tronically Signed By: Luba GONZALEZ, Mily\.francie\Date and Time Signed: 12/23/22 09:37 EDT Message from Medicareon 12-04 Message from Medicare [id number]#1. 00CD:127 [facility] Monitor Recordon 12-23-2022 Monitor Record [id number]#1. 00CD:127 Normal [facility] Monitor Record [id number]#1. 00CD:127 [facility] Monitor Record [id number]#1. 00CD:127 [facility] Monitor Record [id number]#1. 00CD:127 [facility] Progress Note-Physicianon Progress Note-Physician [facility] Comment on above: Result Comment: Elec tronically Signed By: Bonnie BANEGAS\.br\Date and Time Signed: 12/23/22 09:51 EDT\.br\Electronically Co-Signed By: Eboni LEMONS, John White\.br\Date and Time Co-Signed: 12/23/22 10:11 EDT Progress Note-Physician Normal [facility] Comment on above: Result Comment: Elec tronically Signed By: Lorelei LEMONS, Claudio\.br\Date and Time Signed: 12/23/22 01:04 EDT Auto Diffon 12-22-2022 Basophils/100 WBC (Bld) 0.5 % Normal 0.0-2.0 [facility] Comment on above: Order Comment: Order Added by Discern Expert. Performed By: #### 2 215171, 294735082, 8013175, 44724809, 9862218, 4380761 ####[address] [address] Basophils/Leukocytes Auto (Bld) [Pure # fraction] 0.0 E9/L Normal 0.0-0.2 [facility] Comment on above: Order Comment: Order Added by Discern Expert. Performed By: #### 2 207502, 328888029, 1060802, 05976717, 8312818, 8269728 ####[address] [address] Eosinophils/100 WBC (Bld) 3.0 % Normal 0.0-8.0 [facility] Comment on above: Order Comment: Order Added by Discern Expert. Performed By: #### 2 737415, 154728903, 4816593, 19525369, 2170120, 8722869 ####[facility] [address] [place] [address] Eosinophils/Leukocytes Auto (Bld) [Pure # fraction] 0.3 E9/L Normal 0.0-0.5 [facility] Comment on above: Order Comment: Order Added by Discern Expert. Performed By: #### 2 380955, 290442547, 6166097, 88167117, 5717284, 5358437 ####[facility] [address] [place] [address] Lymphocytes/100 WBC (Bld) 43.5 % Normal 14.0-50.0 [facility] Comment on above: Order Comment: Order Added by Discern Expert. Performed By: #### 2 023354, 836846284, 7215234, 94944676, 8411692, 2814250 ####[address] [address] Lymphocytes/Leukocytes Auto (Bld) [Pure # fraction] 3.9 E9/L Normal 1.0-4.0 [facility] Comment on above: Order Comment: Order Added by Discern Expert. Performed By: #### 2 019016, 098489718, 2165574, 42589117, 8347246, 3227470 ####[address] [address] Monocytes/100 WBC (Bld) 6.0 % Normal 4.0-14.0 [facility] Comment on above: Order Comment: Order Added by Discern Expert. Performed By: #### 2 065907, 668898699, 3347169, 03598098, 8872987, 5489167 ####[address] [address] Monocytes/Leukocytes Auto (Bld) [Pure # fraction] 0.5 E9/L Normal 0.2-1.0 [facility] Comment on above: Order Comment: Order Added by Discern Expert. Performed By: #### 2 831485, 256625509, 0316965, 95229337, 9143219, 7391694 ####[address] [address] Neutrophils/100 WBC (Bld) 47.0 % Normal 36.0-75.0 [facility] Comment on above: Order Comment: Order Added by Discern Expert. Performed By: #### 2 727683, 261364836, 0473922, 75229646, 5888111, 9963803 ####[address] [address] Neutrophils/Leukocytes Auto (Bld) [Pure # fraction] 4.2 E9/L Normal 2.0-7.5 [facility] Comment on above: Order Comment: Order Added by Discern Expert. Performed By: #### 2 265450, 251659998, 1406921, 61951426, 0407748, 7595113 ####[facility] [address] [place] [address] BMPon 12-22-2022 Anion gap [Moles/Vol] 8 mmol/L Normal 6-16 [facility] Comment on above: Performed By: #### 2 951586, 581552599, 7973545, 53396650, 7776323, 7571988 ####[facility] [address] [place] [address] Calcium [Mass/Vol] 8.4 mg/dL Low 8.9-11.1 [facility] Comment on above: Performed By: #### 2 155275, 767180527, 7829237, 68909171, 8808616, 4993014 ####[facility] [address] [place] [address] Chloride [Moles/Vol] 104 mmol/L Normal 101-111 [facility] Comment on above: Performed By: #### 2 572334, 692028353, 6572746, 32611528, 3761305, 7836051 ####[facility] [address] [place] [address] CO2 [Moles/Vol] 30 mmol/L Normal 21-31 [facility] Comment on above: Performed By: #### 2 764300, 714147835, 8340814, 82983706, 0401675, 6788491 ####[facility] [address] [place] [address] Creatinine [Mass/Vol] 1.1 mg/dL Normal 0.5-1.3 [facility] Comment on above: Performed By: #### 2 082051, 505457701, 5238724, 20340985, 9273952, 9624746 ####[facility] [address] [place] [address] Glucose [Mass/Vol] 151 mg/dL Normal 55-199 [facility] Comment on above: Result Comment: If t his glucose result represents a fasting glucose, interpretation should refer to the following reference range: 55-99 mg/dL Performed By: #### 2 585480, 270805605, 7630007, 27872093, 6852893, 4516211 ####[facility] [address] [place] [address] Potassium [Moles/Vol] 3.9 mmol/L Normal 3.5-5.3 [facility] Comment on above: Performed By: #### 2 204652, 328413720, 0501624, 87860520, 9319088, 5206481 ####[facility] [address] [place] [address] Sodium [Moles/Vol] 138 mmol/L Normal 135-145 [facility] Comment on above: Performed By: #### 2 727216, 719209628, 3783557, 43847647, 7073329, 3353041 ####[facility] [address] [place] [address] Urea nitrogen [Mass/Vol] 25 mg/dL High 5-21 [facility] Comment on above: Performed By: #### 2 848927, 898834700, 3148662, 98963997, 0095570, 4393401 ####[facility] [address] [place] [address] Urea nitrogen/Creatinine [Mass ratio] 23 No Units High 10-20 [facility] Comment on above: Performed By: #### 2 790456, 126048787, 2323098, 57081041, 7189052, 2443556 ####[facility] [address] [place] [address] CBC w/ Auto Diffon 3 Erythrocyte distribution width (RBC) [Ratio] 14.5 % High 10.9-14.2 [facility] Comment on above: Performed By: #### 2 030588, 300668344, 9376563, 74519632, 5659778, 8192951 ####[address] [place] [address] Hematocrit (Bld) [Volume fraction] 32.7 % Low 37.7-49.0 [facility] Comment on above: Performed By: #### 2 715664, 490928461, 2670037, 31731723, 6409948, 0056036 ####[address] [address] Hemoglobin (Bld) [Mass/Vol] 10.7 g/dL Low 13.5-17.5 [facility] Comment on above: Performed By: #### 2 919354, 473644213, 7753975, 21387211, 4270254, 4830698 ####[address] [address] MCH (RBC) [Entitic mass] 28.7 pg Normal 27.0-34.0 [facility] Comment on above: Performed By: #### 2 164261, 923551057, 8346426, 48252193, 5857614, 2921689 ####[address] [address] MCHC (RBC) [Mass/Vol] 32.7 g/dL Normal 31.4-36.0 [facility] Comment on above: Performed By: #### 2 802073, 941187649, 2810268, 81965747, 0182638, 6244691 ####[address] [address] MCV (RBC) [Entitic vol] 87.7 fL Normal 80.0-100.0 [facility] Comment on above: Performed By: #### 2 713191, 551698285, 9184524, 00637741, 5400922, 0670050 ####[address] [place] [address] Platelet mean volume (Bld) [Entitic vol] 8.4 fL Normal 6.4-10.8 [facility] Comment on above: Performed By: #### 2 887134, 590364880, 4054631, 22403669, 8401095, 5531054 ####[facility] [address] [place] [address] Platelets (Bld) [#/Vol] 324.0 E9/L Normal 150.0-500.0 [facility] Comment on above: Performed By: #### 2 322415, 641036385, 7627749, 00903707, 1397965, 1138462 ####[facility] [address] [place] [address] RBC (Bld) [#/Vol] 3.7 E12/L Low 4.3-5.9 [facility] Comment on above: Performed By: #### 2 637325, 252324884, 6315240, 35414608, 4169995, 0631917 ####[facility] [address] [place] [address] WBC corrected for nucl RBC Auto (Bld) [#/Vol] 8.9 E9/L Normal 4.0-11.0 [facility] Comment on above: Performed By: #### 2 671179, 823784060, 8416235, 72711045, 8251158, 7599326 ####[facility] [address] [place] [address] CHEMISTRYOrdered By: SYSTEM SYSTEM on 12-22-2022 Anion gap [Moles/Vol] 8 mmol/L Normal 6 - 16 mEq/L [facility] Remisol Calcium [Mass/Vol] 8.4 mg/dL Low 8.9 - 11. 1 mg/dL [facility] Remisol Chloride [Moles/Vol] 104 mmol/L Normal 101 - 1 11 mmol/L [facility] Remisol CO2 [Moles/Vol] 30 mmol/L Normal 21 - 31 mmol/L [facility] Remisol Creatinine [Mass/Vol] 1.1 mg/dL Normal 0.5 - 1.3 mg/dL [facility] Remisol GFR/1.73 sq M.predicted among blacks MDRD (S/P/Bld) [Vol rate/Area] mL/min/1.73 m2 Normal >=59mL/min/1 .73 m2 [facility] Chem S GFR/1.73 sq M.predicted among non-blacks MDRD (S/P/Bld) [Vol rate/Area] mL/min/1.73 m2 Normal >=59mL/min/1 .73 m2 [facility] Chem S Glucose [Mass/Vol] 151 mg/dL Normal 55 - 199 mg/dL [facility] Remisol Magnesium [Mass/Vol] 1.6 mg/dL Normal 1.3 - 2 .4 mg/dL [facility] Remisol Potassium [Moles/Vol] 3.9 mmol/L Normal 3.5 - 5.3 mmol/L [facility] Remisol Sodium [Moles/Vol] 138 mmol/L Normal 135 - 145 mmol/L [facility] Remisol Urea nitrogen [Mass/Vol] 25 mg/dL High 5 - 21 mg/dL [facility] Remisol Urea nitrogen/Creatinine [Mass ratio] 23 mg/mg High 10 - 20 [facility] Remisol CHEMISTRYOrdered By: Susie ga on 12-22-2022 HbA1c (Bld) [Mass fraction] 8.0 % High <=5.9% [facility] ChemAutoSS Capillary Glucose POCon 12-04 Glucose [Mass/Vol] 255 mg/dL High 55- [facility] Comment on above: Result Comment: Clemente MCCLAIN Performed By: #### 2 [id number] ####[facility] [address] [place] [address] Glucose [Mass/Vol] 199 mg/dL High 55- [facility] Comment on above: Result Comment: Clemente MCCLAIN Performed By: #### 2 [id number] ####[facility] [address] [place] [address] Glucose [Mass/Vol] 124 mg/dL High 55-99 [facility] Comment on above: Result Comment: Clemente MCCLAIN Performed By: #### 2 [id number] ####[facility] [address] [place] [address] Glucose [Mass/Vol] 117 mg/dL High 55-99 [facility] Comment on above: Result Comment: Clemente christopher RN/ Performed By: #### 2 [id number] ####[facility] [address] [place] [address] Glucose [Mass/Vol] 168 mg/dL High 55-99 [facility] Comment on above: Performed By: #### 2 [id number] ####[facility] [address] [place] [address] EEGon 12-22-2022 EEG Normal [facility] Comment on above: Result Comment: Elec tronically Signed By: Kumar Mathias DO\.br\Date and Time Signed: 12/22/22 12:18 EDT Echo Transthoracic Completeo n 12-22-2022 Echo Transthoracic Complete Normal [facility] HEMATOLOGYOrdered By: SYSTEM SYSTEM on 12-22-2022 Basophils/100 WBC (Bld) 0.5 % Normal 0.0 - 2.0 % [facility] HemeAutoSS Basophils/Leukocytes Auto (Bld) [Pure # fraction] 0.0 E9/L Normal 0.0 - 0.2 E9/L [facility] HemeAutoSS Eosinophils/100 WBC (Bld) 3.0 % Normal 0.0 - 8.0 % [facility] HemeAutoSS Eosinophils/Leukocytes Auto (Bld) [Pure # fraction] 0.3 E9/L Normal 0.0 - 0.5 E9/L [facility] HemeAutoSS Lymphocytes/100 WBC (Bld) 43.5 % Normal 14.0 - 50.0 % [facility] HemeAutoSS Lymphocytes/Leukocytes Auto (Bld) [Pure # fraction] 3.9 E9/L Normal 1.0 - 4.0 E9/L [facility] HemeAutoSS Monocytes/100 WBC (Bld) 6.0 % Normal 4.0 - 14.0 % [facility] HemeAutoSS Monocytes/Leukocytes Auto (Bld) [Pure # fraction] 0.5 E9/L Normal 0.2 - 1.0 E9/L [facility] HemeAutoSS Neutrophils/100 WBC (Bld) 47.0 % Normal 36.0 - 75.0 % [facility] HemeAutoSS Neutrophils/Leukocytes Auto (Bld) [Pure # fraction] 4.2 E9/L Normal 2.0 - 7.5 E9/L [facility] HemeAutoSS HEMATOLOGYOrdered By: Sheba Olivarez on 12-22-2022 Erythrocyte distribution width (RBC) [Ratio] 14.5 % High 10.9 - 14.2 % [facility] HemeAutoSS Hematocrit (Bld) [Volume fraction] 32.7 % Low 37.7 - 49.0 % [facility] HemeAutoSS Hemoglobin (Bld) [Mass/Vol] 10.7 g/dL Low 13.5 - 17.5 gm/dL [facility] HemeAutoSS MCH (RBC) [Entitic mass] 28.7 pg Normal 27.0 - 34.0 pg [facility] HemeAutoSS MCHC (RBC) [Mass/Vol] 32.7 g/dL Normal 31.4 - 36.0 gm/dL [facility] HemeAutoSS MCV (RBC) [Entitic vol] 87.7 fL Normal 80.0 - 100.0 fL [facility] HemeAutoSS Platelet mean volume (Bld) [Entitic vol] 8.4 fL Normal 6.4 - 10.8 fL [facility] HemeAutoSS Platelets (Bld) [#/Vol] 324.0 E9/L Normal 150.0 - 500.0 E9/L [facility] HemeAutoSS RBC (Bld) [#/Vol] 3.7 E12/L Low 4.3 - 5.9 E12/L [facility] HemeAutoSS WBC corrected for nucl RBC Auto (Bld) [#/Vol] 8.9 E9/L Normal 4.0 - 11.0 E9/L [facility] HemeAutoSS Interdisciplinary Note - Hermelindo e Manageron 12-22-2022 Interdisciplinary Note - Oncology Registrar Normal [facility] Comment on above: Result Comment: Elec tronically Signed By: Luba GONZALEZ, Mily\.francie\Date and Time Signed: 12/22/22 12:52 EDT Magnesiumon 12-22-2022 Magnesium [Mass/Vol] 1.6 mg/dL Normal 1.3-2.4 [facility] Comment on above: Performed By: #### 2 978017, [id number], 8663448, 43194712, 4563971, 0240254 ####[facility] [address] [place] [address] Monitor Recordon 12-22-2022 Monitor Record [id number]#1. 00CD:127 Normal [facility] Monitor Record [id number]#1. 00CD:127 Normal [facility] Outside Recordson 12-22-2022 Outside Records [id number]#1. 00CD:127 Normal [facility] Outside Records [id number]#1. 00CD:127 Normal [facility] Progress Note-Physicianon Progress Note-Physician [facility] Comment on above: Result Comment: Elec tronically Signed By: Fallon Rudd RN\.br\Date and Time Signed: 12/22/22 10:39 EDT\.br\Electronically Co-Signed By: Kumar Mathias DO\.br\Date and Time Co-Signed: 12/22/22 12:20 EDT Progress Note-Physician [facility] Comment on above: Result Comment: Elec tronically Signed By: Torey LEMONS, Mahesh Johns\.br\Date and Time Signed: 12/22/22 09:33 EDT US Carotid Duplex Bilateralo n 12-22-2022 US Carotid Duplex Bilateral Normal [facility] eGFRon 12-22-2022 GFR/1.73 sq M.predicted among blacks MDRD (S/P/Bld) [Vol rate/Area] mL/min/{1.73_m2} Normal >=59 [facility] Comment on above: Order Comment: Order added by Discern Expert. Result Comment: eGFR is race adjusted. AA=. Performed By: #### 2 474142, [id number], 8510240, 63479098, 5798525, 0920549 ####[facility] [address] [place] [address] GFR/1.73 sq M.predicted among non-blacks MDRD (S/P/Bld) [Vol rate/Area] mL/min/{1.73_m2} Normal >=59 [facility] Comment on above: Order Comment: Order added by Discern Expert. Result Comment: Hospice Care Transitions Coordinator lokesh kidney disease could be indicated at eGFR's of less than 60 mL/min/1.73m2. Kidney failure is indicated at less than 15 mL/min/1.73m2. Performed By: #### 2 394479, 787498826, 2841329, 28357873, 7138754, 9798898 ####[facility] [address] [place] [address] ABO/Rhon 12-21-2022 ABO/Rh Negative Invalid Interpretation Code [facility] Comment on above: Performed By: #### 1 0781285, 91356678, 5554894, 47843665 ####[facility] [address] [place] [address] ABO/Rh History Checkon 12-21 ABO/Rh History Check Type verified by second s Normal [facility] Comment on above: Performed By: #### 1 7266394, 60989473, 6588238, 06847946 ####[facility] [address] [place] [address] ABO/Rh Retypeon 12-21-2022 ABO/Rh Retype Interp Negative Invalid Interpretation Code [facility] Comment on above: Performed By: #### 1 5535688, 6204653, 87052346, 55548598, 7708997, 3138598, 87753936 ####[facility] [address] [facility] [place] [address] ABSCon 12-21-2022 ABSC Gel Interp Negative Normal [facility] Comment on above: Performed By: #### 1 6629404, 90438507, 0687792, 97358826 ####[facility] [address] [place] [address] Auto Diffon 12-21-2022 Basophils/100 WBC (Bld) 0.5 % Normal 0.0-2.0 [facility] Comment on above: Order Comment: Order Added by Discern Expert. Performed By: #### 1 1779327, 4168157, 72927513, 59005362, 4686024, 5732751, 75277052 ####[address] [place] [address] Basophils/Leukocytes Auto (Bld) [Pure # fraction] 0.1 E9/L Normal 0.0-0.2 [facility] Comment on above: Order Comment: Order Added by Discern Expert. Performed By: #### 1 7082206, 1043153, 13633870, 21281862, 1806151, 6169448, 01359892 ####[address] [address] Eosinophils/100 WBC (Bld) 0.8 % Normal 0.0-8.0 [facility] Comment on above: Order Comment: Order Added by Discern Expert. Performed By: #### 1 1814960, 3987395, 30055643, 45076695, 3234901, 0712325, 80283916 ####[address] [address] Eosinophils/Leukocytes Auto (Bld) [Pure # fraction] 0.1 E9/L Normal 0.0-0.5 [facility] Comment on above: Order Comment: Order Added by Discern Expert. Performed By: #### 1 5879666, 8713734, 07455005, 45697705, 6394940, 2797074, 28573665 ####[address] [address] Lymphocytes/100 WBC (Bld) 33.6 % Normal 14.0-50.0 [facility] Comment on above: Order Comment: Order Added by Discern Expert. Performed By: #### 1 5212514, 8821569, 25383387, 53914098, 8595413, 8108309, 98842291 ####[address] [address] Lymphocytes/Leukocytes Auto (Bld) [Pure # fraction] 3.8 E9/L Normal 1.0-4.0 [facility] Comment on above: Order Comment: Order Added by Discern Expert. Performed By: #### 1 4112535, 4037022, 05325047, 97558820, 3324224, 0535960, 95595627 ####[address] [place] [address] Monocytes/100 WBC (Bld) 6.7 % Normal 4.0-14.0 [facility] Comment on above: Order Comment: Order Added by Discern Expert. Performed By: #### 1 9626580, 4182278, 28539195, 43361539, 9227243, 2656578, 99774744 ####[address] [place] [address] Monocytes/Leukocytes Auto (Bld) [Pure # fraction] 0.8 E9/L Normal 0.2-1.0 [facility] Comment on above: Order Comment: Order Added by Discern Expert. Performed By: #### 1 5815706, 4003265, 47868720, 40824847, 4826645, 5773624, 68457760 ####[address] [address] Neutrophils/100 WBC (Bld) 58.4 % Normal 36.0-75.0 [facility] Comment on above: Order Comment: Order Added by Discern Expert. Performed By: #### 1 7093666, 1028316, 86496199, 13926548, 3896326, 7862903, 28664891 ####[address] [place] [address] Neutrophils/Leukocytes Auto (Bld) [Pure # fraction] 6.6 E9/L Normal 2.0-7.5 [facility] Comment on above: Order Comment: Order Added by Discern Expert. Performed By: #### 1 1016504, 2540926, 75544377, 38210460, 2717760, 5822019, 33032782 ####[address] [place] [address] Basophils/100 WBC (Bld) 0.4 % Normal 0.0-2.0 [facility] Comment on above: Order Comment: Order Added by Discern Expert. Performed By: #### 2 379441, 2699791, 9091988, 52138046, 7991299, 2200144, 72061163, 2639975, 4520757, 3544983 ####[address] [place] [address] Basophils/Leukocytes Auto (Bld) [Pure # fraction] 0.0 E9/L Normal 0.0-0.2 [facility] Comment on above: Order Comment: Order Added by Discern Expert. Performed By: #### 2 017032, 7881962, 6222605, 92334288, 0196553, 8295129, 92259941, 0755510, 5040661, 2654934 ####[address] [place] [address] Eosinophils/100 WBC (Bld) 0.2 % Normal 0.0-8.0 [facility] Comment on above: Order Comment: Order Added by Discern Expert. Performed By: #### 2 661536, 0299727, 1282013, 74422992, 0585992, 5984997, 22946734, 5461932, 9607739, 5613510 ####[address] [address] Eosinophils/Leukocytes Auto (Bld) [Pure # fraction] 0.0 E9/L Normal 0.0-0.5 [facility] Comment on above: Order Comment: Order Added by Discern Expert. Performed By: #### 2 711354, 1851849, 2517186, 94342090, 7244377, 3289648, 42540952, 4029300, 5270024, 0843835 ####[address] [place] [address] Lymphocytes/100 WBC (Bld) 19.7 % Normal 14.0-50.0 [facility] Comment on above: Order Comment: Order Added by Discern Expert. Performed By: #### 2 955598, 0397622, 0034162, 07891063, 5239407, 2155744, 47871815, 5679088, 8864553, 0239972 ####[address] [place] [address] Lymphocytes/Leukocytes Auto (Bld) [Pure # fraction] 2.0 E9/L Normal 1.0-4.0 [facility] Comment on above: Order Comment: Order Added by Discern Expert. Performed By: #### 2 942551, 7491842, 8670057, 04860716, 0034218, 3921830, 43383295, 1997803, 5593214, 5428284 ####[address] [place] [address] Monocytes/100 WBC (Bld) 6.6 % Normal 4.0-14.0 [facility] Comment on above: Order Comment: Order Added by Discern Expert. Performed By: #### 2 422769, 4852974, 0401058, 82425617, 6208390, 4373193, 03426742, 1371482, 0401357, 0101283 ####[address] [address] Monocytes/Leukocytes Auto (Bld) [Pure # fraction] 0.7 E9/L Normal 0.2-1.0 [facility] Comment on above: Order Comment: Order Added by Discern Expert. Performed By: #### 2 362702, 7829844, 4303986, 11853315, 8260240, 4068644, 48757788, 1797249, 0885649, 9206140 ####[address] [address] Neutrophils/100 WBC (Bld) 73.1 % Normal 36.0-75.0 [facility] Comment on above: Order Comment: Order Added by Discern Expert. Performed By: #### 2 733995, 8658608, 9156604, 57466572, 7820762, 8823429, 05536532, 7720603, 2962752, 9598437 ####[address] [place] [address] Neutrophils/Leukocytes Auto (Bld) [Pure # fraction] 7.3 E9/L Normal 2.0-7.5 [facility] Comment on above: Order Comment: Order Added by Discern Expert. Performed By: #### 2 357870, 9846479, 8486518, 31383928, 7978231, 3956370, 87986793, 0776387, 4933498, 1949978 ####[facility] [address] [place] [address] BLOOD BANKOrdered By: Brianna Londono on 12-21-2022 ABO/Rh Retype Interp Negative Invalid Interpretation Code [facility] BB Subsection BMPon 12-21-2022 Anion gap [Moles/Vol] 9 mmol/L Normal 6-16 [facility] Comment on above: Performed By: #### 1 1320583, 0527396, 35947049, 64900441, 5706879, 5744175, 67428417 ####[facility] [address] [place] [address] Calcium [Mass/Vol] 8.6 mg/dL Low 8.9-11.1 [facility] Comment on above: Performed By: #### 1 4773143, 6920271, 65747228, 12592171, 4263843, 3538753, 73097762 ####[facility] [address] [place] [address] Chloride [Moles/Vol] 105 mmol/L Normal 101-111 [facility] Comment on above: Performed By: #### 1 0291636, 7163664, 05428382, 06021427, 0244261, 3001339, 60259199 ####[facility] [address] [place] [address] CO2 [Moles/Vol] 30 mmol/L Normal 21-31 [facility] Comment on above: Performed By: #### 1 9923970, 7575290, 05396948, 18706665, 0421020, 7861024, 74003808 ####[facility] [address] [place] [address] Creatinine [Mass/Vol] 1.0 mg/dL Normal 0.5-1.3 [facility] Comment on above: Performed By: #### 1 2604170, 9914882, 61274334, 86391776, 6704653, 2325638, 41663579 ####[facility] [address] [place] [address] Glucose [Mass/Vol] 127 mg/dL Normal 55-199 [facility] Comment on above: Result Comment: If t his glucose result represents a fasting glucose, interpretation should refer to the following reference range: 55-99 mg/dL Performed By: #### 1 8629380, 5850529, 50396340, 48880114, 9830435, 3936551, 04312992 ####[facility] [address] [place] [address] Potassium [Moles/Vol] 3.7 mmol/L Normal 3.5-5.3 [facility] Comment on above: Performed By: #### 1 5724352, 1170809, 85922533, 37049344, 1981399, 8306009, 34104893 ####[facility] [address] [place] [address] Sodium [Moles/Vol] 140 mmol/L Normal 135-145 [facility] Comment on above: Performed By: #### 1 3562362, 8646608, 26331593, 49036076, 1751048, 1598030, 78313553 ####[facility] [address] [place] [address] Urea nitrogen [Mass/Vol] 35 mg/dL High 5-21 [facility] Comment on above: Performed By: #### 1 6231238, 3042622, 82550946, 55685982, 8508083, 4643179, 87333391 ####[facility] [address] [place] [address] Urea nitrogen/Creatinine [Mass ratio] 35 No Units High 10-20 [facility] Comment on above: Performed By: #### 1 4716451, 3440727, 03471709, 36798842, 6454335, 9403114, 03205658 ####[facility] [address] [place] [address] Creatinine [Mass/Vol] 1.2 mg/dL Normal 0.5-1.3 [facility] Comment on above: Performed By: #### 2 130341, 6186915, 0699110, 40901107, 1497600, 3030741, 43771379, 9384621, 9975060, 3235387 ####[facility] [address] [place] [address] Urea nitrogen [Mass/Vol] 39 mg/dL High 5-21 [facility] Comment on above: Performed By: #### 2 462017, 0518576, 3753602, 16918672, 3494026, 2706096, 18239712, 2949014, 3252074, 4449963 ####[facility] [address] [place] [address] Urea nitrogen/Creatinine [Mass ratio] 32 No Units High 10-20 [facility] Comment on above: Performed By: #### 2 725989, 7782798, 6530958, 79249859, 9118172, 8494349, 21542791, 1878551, 1681350, 5757721 ####[facility] [address] [place] [address] Anion gap [Moles/Vol] 13 mmol/L Normal 6-16 [facility] Comment on above: Performed By: #### 2 039890, 7176230, 5125880, 36933754, 8770153, 1746686, 96980235, 6452556, 2353177, 3812337 ####[facility] [address] [place] [address] Calcium [Mass/Vol] 8.6 mg/dL Low 8.9-11.1 [facility] Comment on above: Performed By: #### 2 986630, 1190500, 2706504, 11207457, 8257716, 0816421, 11674483, 5215825, 1013808, 8884064 ####[facility] [address] [place] [address] Chloride [Moles/Vol] 101 mmol/L Normal 101-111 [facility] Comment on above: Performed By: #### 2 826395, 8283251, 4487133, 65911950, 7644961, 2916145, 98653118, 7906399, 0558436, 7329639 ####[facility] [address] [place] [address] CO2 [Moles/Vol] 29 mmol/L Normal 21-31 [facility] Comment on above: Performed By: #### 2 172319, 4040277, 2334950, 29799235, 3408984, 9345032, 52405447, 2234497, 3925130, 4699307 ####[facility] [address] [place] [address] Glucose [Mass/Vol] 221 mg/dL High 55-199 [facility] Comment on above: Result Comment: If t his glucose result represents a fasting glucose, interpretation should refer to the following reference range: 55-99 mg/dL Performed By: #### 2 034046, 5659031, 2675279, 16044008, 4666929, 3485269, 37289990, 2732507, 2328231, 8230453 ####[facility] [address] [place] [address] Potassium [Moles/Vol] 4.6 mmol/L Normal 3.5-5.3 [facility] Comment on above: Performed By: #### 2 692486, 9609425, 3673713, 43456467, 8421430, 3359197, 89216729, 9792379, 4332943, 8212189 ####[facility] [address] [place] [address] Sodium [Moles/Vol] 138 mmol/L Normal 135-145 [facility] Comment on above: Performed By: #### 2 388843, 4546048, 4929458, 35393901, 2505458, 2614519, 72595011, 7998705, 1068696, 7671768 ####[facility] [address] [place] [address] Blood Bank ID#on 12-21-2022 BBID# [id number] Invalid Interpretation Code [facility] Comment on above: Performed By: #### 1 2937177, 49691277, 2030589, 84155740 ####[facility] [address] [place] [address] CBC w/ Auto Diffon 3 Erythrocyte distribution width (RBC) [Ratio] 14.4 % High 10.9-14.2 [facility] Comment on above: Performed By: #### 1 8735221, 1369549, 08623898, 10849068, 7387751, 6699856, 13988174 ####[facility] [address] [place] [address] Hematocrit (Bld) [Volume fraction] 33.5 % Low 37.7-49.0 [facility] Comment on above: Performed By: #### 1 4870559, 9645880, 32059002, 37781839, 0209617, 3675941, 91339896 ####[facility] [address] [place] [address] Hemoglobin (Bld) [Mass/Vol] 10.9 g/dL Low 13.5-17.5 [facility] Comment on above: Performed By: #### 1 5539449, 0756220, 25348637, 58355834, 5325893, 9469556, 82256002 ####[facility] [address] [place] [address] MCH (RBC) [Entitic mass] 28.4 pg Normal 27.0-34.0 [facility] Comment on above: Performed By: #### 1 3200909, 4819933, 95866009, 87170569, 9613208, 4336221, 89860148 ####[facility] [address] [place] [address] MCHC (RBC) [Mass/Vol] 32.5 g/dL Normal 31.4-36.0 [facility] Comment on above: Performed By: #### 1 4601003, 0319544, 11022037, 54273073, 5308784, 1478385, 47088586 ####[facility] [address] [place] [address] MCV (RBC) [Entitic vol] 87.3 fL Normal 80.0-100.0 [facility] Comment on above: Performed By: #### 1 2494216, 7557621, 94119316, 84370948, 2379311, 8735188, 83435661 ####[facility] [address] [place] [address] Platelet mean volume (Bld) [Entitic vol] 8.7 fL Normal 6.4-10.8 [facility] Comment on above: Performed By: #### 1 1119634, 1089345, 36295529, 97783523, 1555796, 8236926, 51110268 ####[address] [address] Platelets (Bld) [#/Vol] 355.0 E9/L Normal 150.0-500.0 [facility] Comment on above: Performed By: #### 1 9724042, 5429233, 62856929, 52118481, 5707001, 4586068, 46458906 ####[address] [address] RBC (Bld) [#/Vol] 3.8 E12/L Low 4.3-5.9 [facility] Comment on above: Performed By: #### 1 3552039, 3298844, 94128813, 31713695, 1708069, 8991040, 37208081 ####[address] [address] WBC corrected for nucl RBC Auto (Bld) [#/Vol] 11.3 E9/L High 4.0-11.0 [facility] Comment on above: Performed By: #### 1 9386934, 8707731, 39474856, 87207188, 2970977, 3759577, 26111328 ####[address] [place] [address] Erythrocyte distribution width (RBC) [Ratio] 14.7 % High 10.9-14.2 [facility] Comment on above: Performed By: #### 2 021819, 3825406, 0511788, 53186233, 1896901, 8416574, 40571261, 8015726, 3282346, 4669666 ####[address] [place] [address] Hematocrit (Bld) [Volume fraction] 34.2 % Low 37.7-49.0 [facility] Comment on above: Performed By: #### 2 543639, 3295452, 1523298, 26844804, 7272350, 0006211, 68150499, 3158030, 6740139, 1246727 ####[address] Hemoglobin (Bld) [Mass/Vol] 11.0 g/dL Low 13.5-17.5 [facility] Comment on above: Performed By: #### 2 505225, 4868022, 1387743, 41198725, 6306525, 2934367, 76932680, 3921231, 1589206, 5319395 ####[address] [address] MCH (RBC) [Entitic mass] 28.1 pg Normal 27.0-34.0 [facility] Comment on above: Performed By: #### 2 531667, 3120308, 6909076, 14565720, 4532681, 4263768, 43782899, 9455255, 9650163, 9377156 ####[address] [address] MCHC (RBC) [Mass/Vol] 32.2 g/dL Normal 31.4-36.0 [facility] Comment on above: Performed By: #### 2 920503, 7960648, 4122145, 75573918, 4986404, 2752237, 09825468, 0833555, 0785183, 6003477 ####[address] [place] [address] MCV (RBC) [Entitic vol] 87.5 fL Normal 80.0-100.0 [facility] Comment on above: Performed By: #### 2 475347, 4905636, 1482808, 10159570, 0085651, 8323319, 16038855, 6692776, 8921365, 6202737 ####[address] [address] Platelet mean volume (Bld) [Entitic vol] 8.6 fL Normal 6.4-10.8 [facility] Comment on above: Performed By: #### 2 886219, 2837268, 2786522, 59780416, 3857408, 7461539, 00300809, 8699088, 9833090, 1552901 ####[address] [address] Platelets (Bld) [#/Vol] 373.0 E9/L Normal 150.0-500.0 [facility] Comment on above: Performed By: #### 2 489060, 4857162, 1576607, 57890866, 6841241, 4300378, 28489017, 1079652, 9259579, 5539185 ####[address] [address] RBC (Bld) [#/Vol] 3.9 E12/L Low 4.3-5.9 [facility] Comment on above: Performed By: #### 2 753614, 8461663, 0818965, [id number], 7838014, 5414683, [id number], 1316926, 5710733, 1841590 ####[address] [address] WBC corrected for nucl RBC Auto (Bld) [#/Vol] 10.0 E9/L Normal 4.0-11.0 [facility] Comment on above: Performed By: #### 2 280909, 3925891, 4028537, [id number], 6586253, 5171511, 02617115, 5288196, 1216946, 8257078 ####[facility] [id number] [place] [address] CHEMISTRYOrdered By: SYSTEM SYSTEM on 12-21-2022 Anion gap [Moles/Vol] 9 mmol/L Normal 6 - 16 mEq/L [facility] Remisol Calcium [Mass/Vol] 8.6 mg/dL Low 8.9 - 11. 1 mg/dL [facility] Remisol Chloride [Moles/Vol] 105 mmol/L Normal 101 - 1 11 mmol/L [facility] Remisol CO2 [Moles/Vol] 30 mmol/L Normal 21 - 31 mmol/L [facility] Remisol Creatinine [Mass/Vol] 1.0 mg/dL Normal 0.5 - 1.3 mg/dL [facility] Remisol GFR/1.73 sq M.predicted among blacks MDRD (S/P/Bld) [Vol rate/Area] mL/min/1.73 m2 Normal >=59mL/min/1 .73 m2 [facility] Chem S GFR/1.73 sq M.predicted among non-blacks MDRD (S/P/Bld) [Vol rate/Area] mL/min/1.73 m2 Normal >=59mL/min/1 .73 m2 [facility] S Glucose [Mass/Vol] 127 mg/dL Normal 55 - 199 mg/dL [facility] Remisol Potassium [Moles/Vol] 3.7 mmol/L Normal 3.5 - 5.3 mmol/L [facility] Remisol Sodium [Moles/Vol] 140 mmol/L Normal 135 - 145 mmol/L [facility] Remisol Troponin I.cardiac [Mass/Vol] 13.40 pg/mL Low 15.90 - 38.40 pg/mL [facility] TSH Qn 2.13 m[IU]/L Normal 0.34 - 5.60 mcIU/mL [facility] Urea nitrogen [Mass/Vol] 35 mg/dL High 5 - 21 mg/dL [facility] Urea nitrogen/Creatinine [Mass ratio] 35 mg/mg High 10 - 20 [facility] Lactate [Mass/Vol] 1.2 mmol/L Normal 0.5 - 2.2 mmol/L [facility] Troponin I.cardiac [Mass/Vol] 11.10 pg/mL Low 15.90 - 38.40 pg/mL [facility] Amphetamines Screen method >1000 ng/mL Ql (U) Negative (12/21/22 1:07 AM) Normal Negative [facility] Barbiturates Screen Ql (U) Negative (12/21/22 1:07 AM) Normal Negative [facility] Benzodiazepines Ql (U) Negative (12/21/22 1:07 AM) Normal Negative [facility] Cocaine Ql (U) Negative (12/21/22 1:07 AM) Normal Negative [facility] Opiates Screen Ql (U) Negative (12/21/22 1:07 AM) Normal Negative [facility] Phencyclidine Screen method >25 ng/mL Ql (U) Negative (12/21/22 1:07 AM) Normal Negative [facility] Tetrahydrocannabinol Screen method >50 ng/mL Ql (U) Negative (12/21/22 1:07 AM) Normal Negative [facility] Remisol CT Abdomen/Pelvis w/o Contra ston 12-21-2022 CT Abdomen/Pelvis w/o Contrast Normal [facility] CT Chest w/o Contraston 12-03 CT Chest w/o Contrast Normal [facility] CT Head or Brain w/o Contras ton 12-21-2022 CT Head or Brain w/o Contrast Normal [facility] CT Spine Cervical w/o Contra ston 12-21-2022 CT Spine Cervical w/o Contrast Normal [facility] Capillary Glucose POCon 12-03 Glucose [Mass/Vol] 184 mg/dL High 55-99 [facility] Comment on above: Result Comment: Clemente MCCLAIN Performed By: #### 2 [id number] ####[facility] [address] [place] [address] Glucose [Mass/Vol] 111 mg/dL High 55-99 [facility] Comment on above: Result Comment: Clemente MCCLAIN Performed By: #### 2 [id number] ####[facility] [address] [place] [address] Glucose [Mass/Vol] 110 mg/dL High 55-99 [facility] Comment on above: Result Comment: Clemente MCCLAIN Performed By: #### 2 [id number] ####[facility] [address] [place] [address] Consent for Treatmenton 12-03 Consent for Treatment [id number]#1.0 0CD:127 Normal [facility] Consultation Noteon 12-22-19 Consultation Note Normal [facility] Comment on above: Result Comment: Elec tronically Signed By: Torey LEMONS, Mahesh Johns\.br\Date and Time Signed: 12/21/22 10:13 EDT Consultation Note Normal [facility] Comment on above: Result Comment: Elec tronically Signed By: Fallon Rudd RN\.br\Date and Time Signed: 12/21/22 07:57 EDT\.br\Electronically Co-Signed By: Lilia Castanon MD\.br\Date and Time Co-Signed: 12/21/22 09:36 EDT Consultation Note Normal [facility] Comment on above: Result Comment: Elec tronically Signed By: Harjit Sarah DO\.br\Date and Time Signed: 12/21/22 00:13 EDT DNR - Do Not Resuscitateon 0 12-21-2022 DNR - Do Not Resuscitate [id number]#1. 00CD:127 Normal [facility] ED Clinical Summaryon 2022 ED Clinical Summary Normal [facility] ED Note-Physicianon 12-22-19 ED Note-Physician Normal [facility] Comment on above: Result Comment: Elec tronically Signed By: Tita Albright DO\.br\Date and Time Signed: 12/21/22 02:54 EDT ED Patient Education Noteon 12-21-2022 ED Patient Education Note Normal [facility] ED Patient Summaryon 023 ED Patient Summary Normal [facility] ED Traumaon 12-21-2022 ED Trauma [id number]#1. 00CD:127 Normal [facility] EMS Documentationon 12-22-19 EMS Documentation Normal [facility] Ethanolon 12-21-2022 Ethanol [Mass/Vol] mg/dL Normal <=7 [facility] Comment on above: Performed By: #### 2 159867, 9741943, 9015618, 91590076, 4515525, 8394485, 91322299, 0995903, 4962441, 0604931 ####[facility] [address] [place] [address] HEMATOLOGYOrdered By: SYSTEM SYSTEM on 12-21-2022 Basophils/100 WBC (Bld) 0.5 % Normal 0.0 - 2.0 % [facility] HemeAutoSS Basophils/Leukocytes Auto (Bld) [Pure # fraction] 0.1 E9/L Normal 0.0 - 0.2 E9/L [facility] HemeAutoSS Eosinophils/100 WBC (Bld) 0.8 % Normal 0.0 - 8.0 % [facility] HemeAutoSS Eosinophils/Leukocytes Auto (Bld) [Pure # fraction] 0.1 E9/L Normal 0.0 - 0.5 E9/L [facility] HemeAutoSS Lymphocytes/100 WBC (Bld) 33.6 % Normal 14.0 - 50.0 % [facility] HemeAutoSS Lymphocytes/Leukocytes Auto (Bld) [Pure # fraction] 3.8 E9/L Normal 1.0 - 4.0 E9/L [facility] HemeAutoSS Monocytes/100 WBC (Bld) 6.7 % Normal 4.0 - 14.0 % [facility] HemeAutoSS Monocytes/Leukocytes Auto (Bld) [Pure # fraction] 0.8 E9/L Normal 0.2 - 1.0 E9/L [facility] HemeAutoSS Neutrophils/100 WBC (Bld) 58.4 % Normal 36.0 - 75.0 % [facility] HemeAutoSS Neutrophils/Leukocytes Auto (Bld) [Pure # fraction] 6.6 E9/L Normal 2.0 - 7.5 E9/L [facility] HemeAutoSS HEMATOLOGYOrdered By: Brianna Londono on 12-21-2022 Erythrocyte distribution width (RBC) [Ratio] 14.4 % High 10.9 - 14.2 % [facility] HemeAutoSS Hematocrit (Bld) [Volume fraction] 33.5 % Low 37.7 - 49.0 % [facility] HemeAutoSS Hemoglobin (Bld) [Mass/Vol] 10.9 g/dL Low 13.5 - 17.5 gm/dL [facility] HemeAutoSS MCH (RBC) [Entitic mass] 28.4 pg Normal 27.0 - 34.0 pg [facility] HemeAutoSS MCHC (RBC) [Mass/Vol] 32.5 g/dL Normal 31.4 - 36.0 gm/dL [facility] HemeAutoSS MCV (RBC) [Entitic vol] 87.3 fL Normal 80.0 - 100.0 fL [facility] HemeAutoSS Platelet mean volume (Bld) [Entitic vol] 8.7 fL Normal 6.4 - 10.8 fL [facility] HemeAutoSS Platelets (Bld) [#/Vol] 355.0 E9/L Normal 150.0 - 500.0 E9/L [facility] HemeAutoSS RBC (Bld) [#/Vol] 3.8 E12/L Low 4.3 - 5.9 E12/L [facility] HemeAutoSS WBC corrected for nucl RBC Auto (Bld) [#/Vol] 11.3 E9/L High 4.0 - 11.0 E9/L [facility] HemeAutoSS Hep Func Panelon 12-21-2022 Bilirubin.indirect [Mass or moles/Vol] UTC Abnormal 0.1-0.9 [facility] Comment on above: Result Comment: Resu lt verified by Discern Rule. Performed result UTC (Unable to Calculate) was sent as an Alpha code due the inability to calculate a valid numeric value. Performed By: #### 2 040970, 3941219, 6183384, 12790470, 7226960, 6530121, 85360910, 5592811, 7597486, 8409756 ####[facility] [address] [place] [address] Albumin [Mass/Vol] 3.1 g/dL Low 3.3-5.0 [facility] Comment on above: Performed By: #### 2 423708, 0553891, 4257803, 56011987, 9014337, 7901873, 28781793, 3781534, 5349782, 8778950 ####[facility] [address] [place] [address] Albumin/Globulin (S) [Mass conc ratio] 1.0 Low 1.1-2.2 [facility] Comment on above: Performed By: #### 2 327108, 5117092, 3751015, 68085179, 4430946, 4769004, 30301447, 0739682, 5445559, 3101569 ####[address] [place] [address] ALP [Catalytic activity/Vol] 75 Int._Unit/L Normal 21-98 [facility] Comment on above: Performed By: #### 2 463411, 7616038, 2572834, 18965544, 3643950, 8924290, 35411435, 0349091, 7829459, 0519930 ####[address] [address] ALT No additional P-5'-P [Catalytic activity/Vol] 19 Int._Unit/L Normal 6-46 [facility] Comment on above: Performed By: #### 2 542503, 8643035, 5159864, 35820607, 3457109, 1164720, 45161170, 8492062, 5520854, 1739876 ####[address] [address] AST [Catalytic activity/Vol] 17 Int._Unit/L Normal 5-43 [facility] Comment on above: Performed By: #### 2 231895, 1884497, 3743468, 92716982, 3795682, 0854203, 54612443, 3378017, 9793930, 2445617 ####[address] [address] Bilirubin [Mass/Vol] 0.4 mg/dL Normal 0.0-1.1 [facility] Comment on above: Performed By: #### 2 656940, 9677236, 8965544, 83615636, 7066085, 4269984, 25355855, 3738460, 0875748, 4323383 ####[facility] [address] [place] [address] Bilirubin.direct [Mass/Vol] mg/dL Normal 0.1-0.4 [facility] Comment on above: Performed By: #### 2 718255, 0995003, 1509043, 56196498, 1399698, 1809309, 39794434, 0290280, 0997689, 8077036 ####[facility] [address] [place] [address] Globulin (S) [Mass/Vol] 3.2 g/dL Normal 1.4-4.0 [facility] Comment on above: Performed By: #### 2 570135, 4599581, 8718532, 99560696, 7979383, 0076588, 25763941, 2374205, 4064833, 6109595 ####[facility] [address] [place] [address] Protein [Mass/Vol] 6.3 g/dL Normal 6.0-7.8 [facility] Comment on above: Performed By: #### 2 474684, 1374964, 8684013, 57980984, 8616129, 9698315, 25598003, 3872175, 4554084, 6761544 ####[facility] [address] [place] [address] Interdisciplinary Note - Hermelindo e Manageron 12-21-2022 Interdisciplinary Note - Oncology Registrar Normal [facility] Comment on above: Result Comment: Elec tronically Signed By: Tommie RN, Meredith\.br\Date and Time Signed: 12/21/22 12:49 EDT Lactic Acidon 12-21-2022 Lactate [Mass/Vol] 1.2 mmol/L Normal 0.5-2.2 [facility] Comment on above: Order Comment: Order added by EKS Rule. (FT_LACTIC_ACID_REFLEX) Adds reflex Lactic Acid 4 hours after initial if result is greater than or equal to 2.0. Performed By: #### 2 100924 ####[facility] [address] [place] [address] Lactate [Mass/Vol] 2.0 mmol/L Normal 0.5-2.2 [facility] Comment on above: Performed By: #### 2 454592, 4097697, 8739769, 83767016, 2290266, 2759974, 33002485, 5213667, 4982629, 6467760 ####[facility] [address] [place] [address] Lipase Levelon 12-21-2022 Lipase [Catalytic activity/Vol] 34 U/L Normal 13-58 [facility] Comment on above: Performed By: #### 2 646506, 3007934, 3902330, 88647422, 4300046, 2586996, 77641940, 7949519, 1160569, 5570831 ####[facility] [address] [place] [address] Living Will/POAon 12-21-2022 Living Will/POA [id number]#1.0 0CD:127 Normal [facility] Living Will/POA [id number]#1.0 0CD:127 Normal [facility] MRA Head w/o Contraston 12-03 MRA Head w/o Contrast Normal [facility] MRI Brain w/o Contraston MRI Brain w/o Contrast Normal [facility] Monitor Recordon 12-21-2022 Monitor Record [id number]#1. 00CD:127 Normal [facility] Monitor Record [id number]#1. 00CD:127 Normal [facility] Monitor Record [id number]#1. 00CD:127 Normal [facility] Monitor Record [id number]#1. 00CD:127 Normal [facility] Mcc Recordson 12-21 Mcc Records [id number]#1. 00CD:127 Normal [facility] PT & PTTon 12-21-2022 aPTT Coag (PPP) [Time] 31.7 second(s) Normal 25.1-36.5 [facility] Comment on above: Result Comment: Para meter 15 days - 4 weeks 1 - 5 months 6 - 11 months 1 - 5 years 6 - 10 years 11 - 17 years PTT Mean: 35.4 (27.6-45.6) Mean: 33.5 (24.8-40.7) Mean: 32.4 (25.1-40.7) Mean: 31.6 (24.0-39.2) Mean: 31.6 (26.9-38.7) Mean: 31.0 (24.6-38.4) Pediatric Reference ranges were obtained from a study by Param Ruiz et al. prepared from 1437 samples obtained at 7 different centers using the same coagulation reagent and instrumentation as [facility]. Currently there are no coagulation studies available worldwide for children to 14 days, and no normal ranges. Heparin therapeutic range (represented by Anti-Factor Xa activity of 0.2 - 0.4 U/mL) corresponds to PTT of 56.6 - 109.0 sec. Performed By: #### 2 727507, 2849381, 9021590, 91143859, 2257826, 1693389, 66308442, 3499645, 6500801, 6544823 ####[facility] [place] [address] INR Coag (PPP) [Relative time] 1.0 {INR} Invalid Interpretation Code [facility] Comment on above: Result Comment: INR results are specifically intended to assess patients stabilized on long-term Anticoagulation therapy suggested INR?s ?Less Intensive Anticoagulation? 2.0 ? 3.0Conventional Range 3.0 ? 4.5 Performed By: #### 2 561512, 7205413, 7793540, 12932786, 2812562, 3767111, 01245289, 7375010, 1516811, 5418461 ####[facility] [address] [place] [address] PT Coag (PPP) [Time] 11.4 second(s) Normal 9.4-12.5 [facility] Comment on above: Result Comment: 15 d ays - 4 weeks 1 - 5 months 6 -11 months 1 ? 5 years 6 ? 10 years 11 -17 years Mean: 11.2 (9.5 ? 12.6) Mean: 11.0 (9.7 ? 12.8) Mean: 11.0 (9.8 ? 13.0) Mean: 11.3 (9.9 ? 13.4) Mean: 11.7 (10.0 ? 14.6) Mean: 11.8 (10.0 - 14.1) Pediatric Reference ranges were obtained from a study by ronn Rojas al. prepared from 1437 samples obtained at 7 different centers using the same coagulation reagent and instrumentation as [facility]. Currently there are no coagulation studies available worldwide for children to 14 days, and no normal ranges. Performed By: #### 2 304641, 8157488, 5316166, 67385391, 4142637, 6122906, 69850335, 5254119, 6569635, 5313984 ####[facility] [address] [place] [address] Progress Note-Physicianon Progress Note-Physician Normal [facility] Comment on above: Result Comment: Elec tronically Signed By: Kelly SPRINGER\.br\Date and Time Signed: 12/21/22 17:18 EDT\.br\Electronically Co-Signed By: Kelly SPRINGER\.br\Date and Time Co-Signed: 12/21/22 17:19 EDT\.br\Electronically Co-Signed By: Stephan QUINN MD\.br\Date and Time Co-Signed: 12/21/22 17:30 EDT RAD - MRI Screening Formon 0 12-21-2022 RAD - MRI Screening Form [id number]#1. 00CD:127 Normal [facility] RAD - Preliminary Cat Scan R eporton 12-21-2022 RAD - Preliminary Cat Scan Report [id number]#1. 00CD:127 Normal [facility] TSH With T4fr Reflexon 12-21 TSH Qn 2.13 m[IU]/L Normal 0.34-5.60 [facility] Comment on above: Performed By: #### 1 0685444, 6515924, 76160505, 66547989, 4742567, 6844367, 90053315 ####[facility] [address] [place] [address] Troponinon 12-21-2022 Troponin I.cardiac [Mass/Vol] 10.20 pg/mL Low 15.90-38.40 [facility] Comment on above: Result Comment: The 95% CI (Confidence Interval) PPV (Positive Predictive Value) for myocardial infarction in females is 38 pg/mL, in males 51 pg/mL. The results should be used in conjunction with clinical conditions of myocardial infarction.([employer] High Sensitivity Troponin I Instructions For Use, [employer], May 2018) Performed By: #### 2 585415, 3645165, 5343511, 70247550, 9449961, 7824003, 19874832, 6184402, 0352578, 1128685 ####[facility] [address] [place] [address] Troponin 3 Hr.on 12-21-2022 Troponin I.cardiac [Mass/Vol] 11.10 pg/mL Low 15.90-38.40 [facility] Comment on above: Result Comment: The 95% CI (Confidence Interval) PPV (Positive Predictive Value) for myocardial infarction in females is 38 pg/mL, in males 51 pg/mL. The results should be used in conjunction with clinical conditions of myocardial infarction.([employer] High Sensitivity Troponin I Instructions For Use, [employer], May 2018) Performed By: #### 1 2877255 ####[facility] [address] [place] [address] Troponin 6 Hr.on 12-21-2022 Troponin I.cardiac [Mass/Vol] 13.40 pg/mL Low 15.90-38.40 [facility] Comment on above: Result Comment: The 95% CI (Confidence Interval) PPV (Positive Predictive Value) for myocardial infarction in females is 38 pg/mL, in males 51 pg/mL. The results should be used in conjunction with clinical conditions of myocardial infarction.(Access High Sensitivity Troponin I Instructions For Use, [employer], May 2018) Performed By: #### 1 2886672, 0525175, 28688300, 89109707, 6841979, 5165283, 38671147 ####[facility] [address] [place] [address] U Drug Screenon 12-21-2022 Amphetamines Screen method >1000 ng/mL Ql (U) Negative Normal Negative [facility] Comment on above: Result Comment: Nega tive Cutoff: <1000 ng/mL Performed By: #### 1 1589928, 9931381 ####[facility] [address] [place] [address] Barbiturates Screen Ql (U) Negative Normal Negative [facility] Comment on above: Result Comment: Nega tive Cutoff: <200 ng/mL Performed By: #### 1 1086122, 8396376 ####[facility] [address] [place] [address] Benzodiazepines Ql (U) Negative Normal Negative [facility] Comment on above: Result Comment: Nega tive Cutoff: <200 ng/mL Performed By: #### 1 4758898, 4610966 ####[facility] [address] [place] [address] Cocaine Ql (U) Negative Normal Negative [facility] Comment on above: Result Comment: Nega tive Cutoff: <300 ng/mL Performed By: #### 1 2109401, 5709467 ####[facility] [address] [place] [address] Opiates Screen Ql (U) Negative Normal Negative [facility] Comment on above: Result Comment: Nega tive Cutoff: <300 ng/mL Performed By: #### 1 5296644, 9150024 ####[address] [place] [address] Phencyclidine Screen method >25 ng/mL Ql (U) Negative Normal Negative [facility] Comment on above: Result Comment: Nega tive Cutoff: <25 ng/mLThese drug screen results are to be used for medical (i.e., treatment) purposes only. Unconfirmed drug screening results must not be used for non-medical purposes (e.g., employment testing, legal testing). Performed By: #### 1 6130512, 3011935 ####[address] Tetrahydrocannabinol Screen method >50 ng/mL Ql (U) Negative Normal Negative [facility] Comment on above: Result Comment: Nega tive Cutoff: <50 ng/mL Performed By: #### 1 1679248, 4929725 ####[address] [address] UA With Cult Reflexon 2022 Bilirubin Ql (U) Negative Normal Negative [facility] Comment on above: Performed By: #### 1 2899560, 8227929 ####[address] [address] Clarity (U) CLEAR Normal Clear [facility] Comment on above: Performed By: #### 1 7515899, 1249237 ####[address] [address] Color (U) YELLOW Normal Yellow [facility] Comment on above: Performed By: #### 1 1130211, 7870483 ####[address] [address] Epithelial cells.squamous LM.HPF (Urine sed) [#/Area] 0-2 Normal 0-2 [facility] Comment on above: Performed By: #### 1 3188351, 0443985 ####[address] [place] [address] Glucose Test strip (U) [Mass/Vol] Negative Normal Negative [facility] Comment on above: Performed By: #### 1 6039011, 9033683 ####[address] [place] [address] Hemoglobin Ql (U) Negative Normal Negative [facility] Comment on above: Performed By: #### 1 0380745, 7397408 ####[address] [address] Ketones (U) [Mass/Vol] Negative Normal Negative [facility] Comment on above: Performed By: #### 1 9087035, 4744819 ####[address] [address] Mckinley.plasma/Mckinley .RBC (Bld) [Mass ratio] 0-3 Normal 0-3 [facility] Comment on above: Performed By: #### 1 9523366, 6518645 ####[address] [address] Nitrite Ql (U) Negative Normal Negative [facility] Comment on above: Performed By: #### 1 2431105, 5369747 ####[address] [address] pH (U) 6.5 [pH] Invalid Interpretation Code 5.0-9.0 [facility] Comment on above: Performed By: #### 1 5464031, 2145930 ####[address] [address] Protein (U) [Mass/Vol] Negative Normal Negative [facility] Comment on above: Performed By: #### 1 6175521, 5459968 ####[address] [address] Specific gravity (U) [Rel density] 1.015 Invalid Interpretation Code 1.005-1.030 [facility] Comment on above: Performed By: #### 1 7555888, 4326407 ####[address] [address] Type of Urine collection method Clean Catch Normal [facility] Comment on above: Performed By: #### 1 8122223, 4267416 ####[facility] [address] [address] Urobilinogen Qn (U) 0.2 {Alyssia'U}/dL Normal 0.0-1.0 [facility] Comment on above: Performed By: #### 1 6047940, 4334493 ####[facility] [address] WBC Auto Ql (U) Negative Normal Negative [facility] Comment on above: Performed By: #### 1 7096797, 1780475 ####[facility] [address] WBC LM.HPF (Urine sed) [#/Area] 0-5 Normal 0-5 [facility] Comment on above: Performed By: #### 1 4322643, 2537976 ####[facility] [address] [place], [place] [address] URINALYSISOrdered By: Edilia Aquino on 12-21-2022 Bilirubin Ql (U) Negative (12/21/22 1:07 AM) Normal Negative [facility] UA Auto SS Clarity (U) Clear (12/21/22 1:07 AM) Normal Clear [facility] UA Auto SS Color (U) Yellow (12/21/22 1:07 AM) Normal Yellow [facility] UA Auto SS Epithelial cells.squamous LM.HPF (Urine sed) [#/Area] 0-2 /HPF Normal 0-2/HPF [facility] UA Aut o SS Glucose Test strip (U) [Mass/Vol] Negative (12/21/22 1:07 AM) Normal Negative [facility] UA Auto SS Hemoglobin Ql (U) Negative (12/21/22 1:07 AM) Normal Negative [facility] UA Auto SS Ketones (U) [Mass/Vol] Negative (12/21/22 1:07 AM) Normal Negative [facility] UA Auto SS Mckinley.plasma/Mckinley .RBC (Bld) [Mass ratio] 0-3 /HPF Normal 0-3/HPF [facility] UA Auto SS Nitrite Ql (U) Negative (12/21/22 1:07 AM) Normal Negative [facility] UA Auto SS pH (U) 6.5 *NA* (12/21/22 1:07 AM) Invalid Interpretation Code 5.0 - 9.0 [facility] UA Auto SS Protein (U) [Mass/Vol] Negative (12/21/22 1:07 AM) Normal Negative [facility] UA Auto SS Specific gravity (U) [Rel density] 1.015 *NA* (12/21/22 1:07 AM) Invalid Interpretation Code 1.005 - 1.030 [facility] UA Auto SS UA Spec Desc Clean Catch (12/21/22 1:07 AM) Normal [facility] UA Auto SS Urobilinogen Qn (U) 0.8520934 {Alyssia'U}/dL Normal 0.0 - 1.0 EU/dL [facility] UA Auto SS WBC Auto Ql (U) Negative (12/21/22 1:07 AM) Normal Negative [facility] UA Auto SS WBC LM.HPF (Urine sed) [#/Area] 0-5 /HPF Normal 0-5/HPF [facility] UA Auto SS XR Hip 2-3 Views Left + Pelv nick 12-21-2022 XR Hip 2-3 Views Left + Pelvis Normal [facility] XR Shoulder Complete Lefton 12-21-2022 XR Shoulder Complete Left Normal [facility] eGFRon 12-21-2022 GFR/1.73 sq M.predicted among blacks MDRD (S/P/Bld) [Vol rate/Area] mL/min/{1.73_m2} Normal >=59 [facility] Comment on above: Order Comment: Order added by Discern Expert. Result Comment: eGFR is race adjusted. AA=. Performed By: #### 1 4088542, 5929589, 77253740, 40906247, 1386345, 6281884, 81069566 ####[facility] [address] [place] [address] GFR/1.73 sq M.predicted among non-blacks MDRD (S/P/Bld) [Vol rate/Area] mL/min/{1.73_m2} Normal >=59 [facility] Comment on above: Order Comment: Order added by Discern Expert. Result Comment: Hospice Care Transitions Coordinator lokesh kidney disease could be indicated at eGFR's of less than 60 mL/min/1.73m2. Kidney failure is indicated at less than 15 mL/min/1.73m2. Performed By: #### 1 3812316, 6211331, 11471741, 78544781, 9436377, 5588878, 19626794 ####[facility] [address] [place] [address] GFR/1.73 sq M.predicted among blacks MDRD (S/P/Bld) [Vol rate/Area] mL/min/{1.73_m2} Normal >=59 [facility] Comment on above: Order Comment: Order added by Discern Expert. Result Comment: eGFR is race adjusted. AA=. Performed By: #### 2 916715, 6789108, 5990261, 04722458, 4391842, 6435386, 60176869, 8974146, 2226891, 8899841 ####[facility] [address] [place] [address] GFR/1.73 sq M.predicted among non-blacks MDRD (S/P/Bld) [Vol rate/Area] 60 mL/min/1.73 m2 Normal >=59 [facility] Comment on above: Order Comment: Order added by Discern Expert. Result Comment: Hospice Care Transitions Coordinator lokesh kidney disease could be indicated at eGFR's of less than 60 mL/min/1.73m2. Kidney failure is indicated at less than 15 mL/min/1.73m2. Performed By: #### 2 [id number], [id number], [id number], [id number], [id number], [id number], [id number], [id number], [id number], [id number] ####[facility] [address] [place] [address] BLOOD BANKOrdered By: Edilia Aquino on 12-20-2022 ABO/Rh Interp Negative Invalid Interpretation Code [facility] [place] Subsection ABSC Gel Interp Negative (12/20/22 11:19 PM) Normal [facility] BB Subsection CHEMISTRYOrdered By: SYSTEM SYSTEM on 12-20-2022 Albumin [Mass/Vol] 3.1 g/dL Low 3.3 - 5.0 gm/dL [facility] Albumin/Globulin [Mass ratio] 1.0 {ratio} Low 1.1 - 2.2 [facility] ALP [Catalytic activity/Vol] 75 [iU]/d Normal 21 - 98 Int._Unit/L [facility] ALT No additional P-5'-P [Catalytic activity/Vol] 19 [iU]/d Normal 6 - 46 Int._Unit/L [facility] AST [Catalytic activity/Vol] 17 [iU]/d Normal 5 - 43 Int._Unit/L [facility] Bilirubin [Mass/Vol] 0.4 mg/dL Normal 0.0 - 1 .1 mg/dL [facility] Bilirubin.direct [Mass/Vol] mg/dL Normal 0.1 - 0.4 mg/dL [facility] Bilirubin.indirect [Mass or moles/Vol] Unable to Calculate mg/dL Invalid Interpretation Code 0.1 - 0.9 mg/dL [facility] Calcium [Mass/Vol] 8.6 mg/dL Low 8.9 - 11. 1 mg/dL [facility] Creatinine [Mass/Vol] 1.2 mg/dL Normal 0.5 - 1.3 mg/dL [facility] Ethanol [Mass/Vol] mg/dL Normal <=7mg/dL [facility] R emisol GFR/1.73 sq M.predicted among blacks MDRD (S/P/Bld) [Vol rate/Area] mL/min/1.73 m2 Normal >=59mL/min/1 .73 m2 [facility] Chem S GFR/1.73 sq M.predicted among non-blacks MDRD (S/P/Bld) [Vol rate/Area] 60 mL/min/1.73 m2 Normal >=59mL/min/1 .73 m2 [facility] Chem S Globulin (S) [Mass/Vol] 3.2 g/dL Normal 1.4 - 4.0 gm/dL [facility] Glucose [Mass/Vol] 221 mg/dL High 55 - 199 mg/dL [facility] Lactate [Mass/Vol] 2.0 mmol/L Normal 0.5 - 2.2 mmol/L [facility] Lipase [Catalytic activity/Vol] 34 U/L Normal 13 - 58 unit/L [facility] Protein [Mass/Vol] 6.3 g/dL Normal 6.0 - 7.8 gm/dL [facility] Troponin I.cardiac [Mass/Vol] 10.20 pg/mL Low 15.90 - 38.40 pg/mL [facility] Urea nitrogen [Mass/Vol] 39 mg/dL High 5 - 21 mg/dL [facility] Urea nitrogen/Creatinine [Mass ratio] 32 mg/mg High 10 - 20 [facility] COAGULATIONOrdered By: Allis on Kenia on 12-20-2022 aPTT Coag (PPP) [Time] 31.7 s Normal 25.1 - 36.5 second(s) [facility] Auto Coag INR Coag (PPP) [Relative time] 1.0 {INR} Invalid Interpretation Code [facility] Auto Coag PT Coag (PPP) [Time] 11.4 s Normal 9.4 - 1 2.5 second(s) [facility] Auto Coag HEMATOLOGYOrdered By: SYSTEM SYSTEM on 12-20-2022 Basophils/100 WBC (Bld) 0.4 % Normal 0.0 - 2.0 % [facility] HemeAutoSS Basophils/Leukocytes Auto (Bld) [Pure # fraction] 0.0 E9/L Normal 0.0 - 0.2 E9/L [facility] HemeAutoSS Eosinophils/100 WBC (Bld) 0.2 % Normal 0.0 - 8.0 % [facility] HemeAutoSS Eosinophils/Leukocytes Auto (Bld) [Pure # fraction] 0.0 E9/L Normal 0.0 - 0.5 E9/L [facility] HemeAutoSS Lymphocytes/100 WBC (Bld) 19.7 % Normal 14.0 - 50.0 % [facility] HemeAutoSS Lymphocytes/Leukocytes Auto (Bld) [Pure # fraction] 2.0 E9/L Normal 1.0 - 4.0 E9/L [facility] HemeAutoSS Monocytes/100 WBC (Bld) 6.6 % Normal 4.0 - 14.0 % [facility] HemeAutoSS Monocytes/Leukocytes Auto (Bld) [Pure # fraction] 0.7 E9/L Normal 0.2 - 1.0 E9/L [facility] HemeAutoSS Neutrophils/100 WBC (Bld) 73.1 % Normal 36.0 - 75.0 % [facility] HemeAutoSS Neutrophils/Leukocytes Auto (Bld) [Pure # fraction] 7.3 E9/L Normal 2.0 - 7.5 E9/L [facility] HemeAutoSS HEMATOLOGYOrdered By: Edilia Aquino on 12-20-2022 Erythrocyte distribution width (RBC) [Ratio] 14.7 % High 10.9 - 14.2 % [facility] HemeAutoSS Hematocrit (Bld) [Volume fraction] 34.2 % Low 37.7 - 49.0 % [facility] HemeAutoSS Hemoglobin (Bld) [Mass/Vol] 11.0 g/dL Low 13.5 - 17.5 gm/dL [facility] HemeAutoSS MCH (RBC) [Entitic mass] 28.1 pg Normal 27.0 - 34.0 pg [facility]eAutoSS MCHC (RBC) [Mass/Vol] 32.2 g/dL Normal 31.4 - 36.0 gm/dL [facility] HemeAutoSS MCV (RBC) [Entitic vol] 87.5 fL Normal 80.0 - 100.0 fL [facility] HemeAutoSS Platelet mean volume (Bld) [Entitic vol] 8.6 fL Normal 6.4 - 10.8 fL [facility] HemeAutoSS Platelets (Bld) [#/Vol] 373.0 E9/L Normal 150.0 - 500.0 E9/L [facility] HemeAutoSS RBC (Bld) [#/Vol] 3.9 E12/L Low 4.3 - 5.9 E12/L [facility] HemeAutoSS WBC corrected for nucl RBC Auto (Bld) [#/Vol] 10.0 E9/L Normal 4.0 - 11.0 E9/L [facility] HemeAutoSS BNPon 12-17-2022 Natriuretic peptide B (Bld) [Mass/Vol] 867.0 pg/mL Normal <=900.0 [facility] Comment on above: Performed By: #### C SANDRAM, CMP, BNP ####[facility] [address] [place], [place] [address]HjeDnae Yousif CARDIAC ASHLEY ADMITon 023 CK [Catalytic activity/Vol] 18 U/L Critically low 39-308 [facility] Comment on above: Performed By: #### C MADM, CMP, BNP ####[facility] [address] [place] [address]Dr. Areli Yousif CK.MB [Mass/Vol] 0.70 ng/mL Normal <=3.60 [facility] Comment on above: Performed By: #### C MADM, CMP, BNP ####[facility] [address] [place] [id number]. Areli Yousif HSTROP 6.5 pg/mL Normal 4.0-76.1 [facility] Comment on above: Result Comment: CUT- OFF POINTS HAVE BEEN ESTABLISHED BASED ON THE FOURTH UNIVERSAL DEFINITIONS OF MYOCARDIALINFARCTION. THE UPPER REFERENCE LIMIT (URL) OF TROPONIN, DEFINED THE 99TH PERCENTILE OFcTnI DISTRIBUTION IN A REFERENCE POPULATION, HAS BEEN CONFIRMED THE DECISION THRESHOLDFOR NE DIAGNOSIS. Performed By: #### C MADM, CMP, BNP ####[facility] [address] [place], [place] [address]Dr. Areli Benja LAWRENCE 41 ng/mL Normal 16-96 [facility] Comment on above: Performed By: #### C MADM, CMP, BNP ####[facility] [address] [place] [address]Dr. Areli Benja CBC AUTO DIFFon 12-17-2022 BASO # 0.0 103/ul Normal 0.0-0.1 [facility] Comment on above: Performed By: #### C BC ####[facility] [address] [place] [address]Dr. Tabbytulio Yousif Basophils/100 WBC (Bld) 0.3 % Normal 0.2-2.0 [facility] Comment on above: Performed By: #### C BC ####[facility] [address] [place] [address]Dr. Tabbytulio Yousif EO # 0.1 103/ul Normal 0.0-0.7 [facility] Comment on above: Performed By: #### C BC ####[facility] [address] [place], [place] [address]Dr. Areli Benja Eosinophils/100 WBC (Bld) 1.1 % Normal 0.9-7.0 [facility] Comment on above: Performed By: #### C BC ####[facility] [address] [place] [address]Dr. Areli Yousif Erythrocyte distribution width (RBC) [Ratio] 12.9 % Normal 11.0-15.0 [facility] Comment on above: Performed By: #### C BC ####[facility] [address] [place] [address]Dr. Areli Yousif Hematocrit (Bld) [Volume fraction] 35.9 % Critically low 42.0-54.0 [facility] Comment on above: Performed By: #### C BC ####[facility] [address] [place], [place] [address]Dr. Areli Yousif Hemoglobin (Bld) [Mass/Vol] 11.2 g/dL Critically low 14.0-18.0 [facility] Comment on above: Performed By: #### C BC ####[facility] [address] [place], [place] [address]Dr. Areli Yousif IG # 0.03 10e3/ul Normal 0.00-0.03 [facility] Comment on above: Performed By: #### C BC ####[facility] [address] [place], [place] [address]Dr. Areli Yousif IG % 0.4 % Normal 0.0-0.5 [facility] Comment on above: Performed By: #### C BC ####[facility] [address] [place], [place] [address]Dr. Areli Yousif LYMPH # 1.1 103/ul Critically low 1.2-3.8 [facility] Comment on above: Performed By: #### C BC ####[facility] [address] [place], [place] [address]Dr. Areli Yousif Lymphocytes/100 WBC (Bld) 14.5 % Critically low 20.5-60.0 [facility] Comment on above: Performed By: #### C BC ####[facility] [address] [place], [place] [address]Dr. Areli Yousif MANUAL DIFF REQ NO Normal [facility] Comment on above: Performed By: #### C BC ####[facility] [address] [place] [id number]. Areli Benja MCH (RBC) [Entitic mass] 28.2 pg Normal 25.9-34.0 [facility] Comment on above: Performed By: #### C BC ####[facility] [address] [place] [address]Dr. Areli Yousif MCHC (RBC) [Mass/Vol] 31.2 g/dL Normal 29.9-35.2 [facility] Comment on above: Performed By: #### C BC ####[facility] [address] [place] [address]Dr. Tabbytulio Yousif MCV (RBC) [Entitic vol] 90.4 fL Normal 80.0-94.0 [facility] Comment on above: Performed By: #### C BC ####[facility] [address] [place] [address]Dr. Areli Yousif MONO # 0.1 103/ul Critically low 0.3-0.8 [facility] Comment on above: Performed By: #### C BC ####[facility] [address] [place] [address]Dr. Areli Yousif Monocytes/100 WBC (Bld) 1.6 % Critically low 1.7-12.0 [facility] Comment on above: Performed By: #### C BC ####[facility] [address] [place], [place] [address]Dr. Areli Yousif NEUT # 6.0 103/ul Normal 1.4-6.5 [facility] Comment on above: Performed By: #### C BC ####[facility] [address] [place] [address]Dr. Areli Yousif Neutrophils/100 WBC (Bld) 82.1 % Critically high 43.0-75.0 [facility] Comment on above: Performed By: #### C BC ####[facility] [address] [place], [place] [address]Dr. Areli Yousif Platelet mean volume (Bld) [Entitic vol] 10.1 fL Normal 9.5-13.5 [facility] Comment on above: Performed By: #### C BC ####[facility] [address] [place], [place] [address]Gs. Areli Yousif PLT 370 103/ul Normal 150-450 [facility] Comment on above: Performed By: #### C BC ####[facility] [address] [place], [place] [address]Xn. Areli Yousif RBC 3.97 106/ul Critically low 4.70-6.10 [facility] Comment on above: Performed By: #### C BC ####[facility] [address] [place], [place] [address]Er. Areli Yousif WBC 7.3 103/ul Normal 4.0-11.0 [facility] Comment on above: Performed By: #### C BC ####[facility] [address] [place], [place] [address]Ky. [address] Yous[address] CT CSPINE WO CONon 3 CT CSPINE WO CON Normal [facility] CT STROKE HEAD WOon 12-18-[address] STROKE HEAD WO Normal [facility] CTA NECK WO W CONon 12-18-19 23 CTA NECK WO W CON Normal [facility] DRUG SCREEN RAPID (URINE)on 12-17-2022 AMP Negative Normal NEGATIVE [facility] Comment on above: Performed By: #### E RUR, DRUGRPD ####[facility] [address] [place] [id number]. Areli Yousif BAR Negative Normal NEGATIVE [facility] Comment on above: Performed By: #### E RUR, DRUGRPD ####[facility] [address] [place], [place] [address]Rf. Areli Yousif BUP Negative Normal NEGATIVE [facility] Comment on above: Performed By: #### E RUR, DRUGRPD ####[facility] [address] [place] [address]Dr. Areli Yousif BZO Negative Normal NEGATIVE [facility] Comment on above: Performed By: #### E RUR, DRUGRPD ####[facility] [address] [place] [address]Dr. Areli Yousif KAMALJIT Negative Normal NEGATIVE [facility] Comment on above: Performed By: #### Sdi BARKER DRUGRPD ####[facility] [address] [place], [place] [address]Dr. Areli Yousif CUT-OFFS SEE BELOW Normal [facility] Comment on above: Result Comment: AMP (Amphetamine): 500ng/mL, BAR (Barbituates): 200 ng/mL, BZO (Benzodiazepines): 150 ng/mL, BUP (Buprenorphine): 10 ng/mL, KAMALJIT (Cocaine): 150 ng/mL, mAMP (Methamphetamine): 500 ng/mL, MTD (Methadone): 200 ng/mL, OPI (Opiates): 100 ng/mL, OXY (Oxycodone): 100 ng/mL, PCP (Phencyclidine): 25 ng/mL, PPX (Propoxyphene): 300 ng/mL, THC (Cannabinoids): 50 ng/mL, TCA (Trycyclic Antidepressants): 300 ng/mL Performed By: #### Sid RUJosé Miguel DRUGRPD ####[facility] [address] [place], [place] [address]Dr. Tabbytulio Yousif DRUG CUT HEADER DRUG CLASS TEST SYST EM CUT-OFF CONCENTRATIONS ARE FOLLOWS: Normal [facility] Comment on above: Performed By: #### Sid RUJosé Miguel DRUGRPD ####[facility] [address] [place], [place] [address]Dr. Areli Yousif mAMP Negative Normal NEGATIVE [facility] Comment on above: Performed By: #### Sid RUJosé Miguel DRUGRPD ####[facility] [address] [place], [place] [address]Dr. Areli Yousif MTD Negative Normal NEGATIVE [facility] Comment on above: Performed By: #### Sid RUJosé Miguel DRUGRPD ####[facility] [address] [place], [place] [address]Dr. Areli Yousif OPI Negative Normal NEGATIVE [facility] Comment on above: Performed By: #### E RUR DRUGRPD ####[facility] [address] [place], [place] [address]Dr. Areli Yousif OXY Negative Normal NEGATIVE [facility] Comment on above: Performed By: #### E RUR, DRUGRPD ####[facility] [address] [place], [place] [address]Dr. Areli Yousif PCP Negative Normal NEGATIVE [facility] Comment on above: Performed By: #### E RUR, DRUGRPD ####[facility] [address] [place], [place] [address]Dr. Areli Yousif PPX Negative Normal NEGATIVE [facility] Comment on above: Performed By: #### E RUR, DRUGRPD ####[facility] [address] [place], [place] [address]Dr. Areli Yousif TCA Negative Normal NEGATIVE [facility] Comment on above: Performed By: #### E RUR, DRUGRPD ####[facility] [address] [place], [place] [address]Dr. Areli Yousif THC Negative Normal NEGATIVE [facility] Comment on above: Performed By: #### E RUR, DRUGRPD ####[facility] [address] [place], [place] [address]Dr. Areli Yousif ER URINE PROFILEon 3 Bilirubin Ql (U) Negative Normal NEGATIVE [facility] Comment on above: Performed By: #### E RUR, DRUGRPD ####[facility] [address] [place], [place] [address]Dr. Areli Yousif Clarity (U) CLEAR Normal CLEAR [facility] Comment on above: Performed By: #### E RUR, DRUGRPD ####[facility] [address]ws[address] [place], [place] [address]Dr. Areli Yousif Color (U) LT. YELLOW Normal YELLOW [facility] Comment on above: Performed By: #### E RUR, DRUGRPD ####[facility] [address] [place], [place] [address]Dr. Areli Yousif ERUAHD A micrscopic examination will be performed if indicated. Normal [facility] Comment on above: Performed By: #### E RUR, DRUGRPD ####[facility] [address] [place], [place] [address]Dr. Areli Yousif Glucose Ql (U) 250 mg/dl Abnormal NEGATIVE [facility] Comment on above: Performed By: #### E RUR, DRUGRPD ####[facility] [address]uis[address] [place], [place] [address]Dr. Areli Yousif Hemoglobin Ql (U) Negative Normal NEGATIVE [facility] Comment on above: Performed By: #### E RUR, DRUGRPD ####[facility] [address] [place], [place] [address]Dr. Areli Yousif Ketones Ql (U) Negative Normal NEGATIVE [facility] Comment on above: Performed By: #### E RUR, DRUGRPD ####[facility] [address]vt[address]ol[address] [place], [place] [address]Dr. Areli Yousif LEUKOCYTES Negative Normal NEGATIVE [facility] Comment on above: Performed By: #### E RUR, DRUGRPD ####[facility] [address] [place], [place] [address]Dr. Areli Yousif Nitrite Ql (U) Negative Normal NEGATIVE [facility] Comment on above: Performed By: #### Sid RUR, DRUGRPD ####[facility] [address] [place], [place] [address]Dr. Areli Yousif pH (U) 6.5 [pH] Normal 5-9 [facility] Comment on above: Performed By: #### E RUR, DRUGRPD ####[facility] [address]pe[address]frw[address] [place], [place] [address]Dr. Areli Yousif SPEC GRAVITY 1.010 Normal 1.005-<=1.[address] [place] [address] Comment on above: Performed By: #### E RUR, DRUGRPD ####[facility] [address] [place], [place] [address]Dr. Areli Yousif UA PROTEIN Negative Normal NEGATIVE/ TRACE [facility] Comment on above: Performed By: #### E RUR, DRUGRPD ####[facility] [address] [place], [place] [address]Dr. Tabbytulio Yousif UR MICRO IND NOT INDICATED Normal [facility] Comment on above: Performed By: #### E RUR, DRUGRPD ####[facility] [address] [place] [address]Dr. Areli Yousif Urobilinogen Qn (U) 0.2 {Alyssia'U}/dL Normal 0.2 - 1. 0 [facility] Comment on above: Performed By: #### Sid BARKER, DRUGRPD ####[facility] [address] [place] [address]Dr. Areli Yousif POINT OF CARE GLUCOSEon 12-03 Glucose [Mass/Vol] 266 mg/dL Critically high 74-106 [facility] Comment on above: Performed By: #### P OCGLUC ####[facility] [address] [place], [place] [address]Dr. Areli Yousif POTASSIUMon 12-17-2022 Potassium [Moles/Vol] 5.3 mmol/L Critically high 3.5-5.1 [facility] Comment on above: Performed By: #### K ####[facility] [address] [place], [place] [address]Dr. Areli Yousif PROF 14(COMP METB)on 023 Albumin [Mass/Vol] 3.0 g/dL Critically low 3.4-5.0 [facility] Comment on above: Performed By: #### C MADM, CMP, BNP ####[facility] [address] [place] [address]Dr. Areli Yousif Albumin/Globulin [Mass ratio] 0.8 {ratio} Normal [facility] Comment on above: Performed By: #### C MADM, CMP, BNP ####[facility] [address] [place] [address]Dr. Areli Yousif ALP [Catalytic activity/Vol] 94 U/L Normal 46-116 [facility] Comment on above: Performed By: #### C MADM, CMP, BNP ####[facility] [address] [place] [address]Dr. Areli Yousif ALT [Catalytic activity/Vol] 27 U/L Normal 16-63 [facility] Comment on above: Performed By: #### C MADM, CMP, BNP ####[facility] [address] [place] [address]Dr. Areli Yousif Anion gap [Moles/Vol] 8.6 mmol/L Normal [facility] Comment on above: Performed By: #### C MADM, CMP, BNP ####[facility] [address] [place] [address]Dr. Areli Yousif AST [Catalytic activity/Vol] 15 U/L Normal 15-37 [facility] Comment on above: Performed By: #### C MADM, CMP, BNP ####[facility] [address] [place] [address]Dr. Areli Yousif Bilirubin [Mass/Vol] 0.2 mg/dL Normal 0.2-1.0 [facility] Comment on above: Performed By: #### C MADM, CMP, BNP ####[facility] [address] [place], [place] [address]Dr. Areli Yousif Calcium [Mass/Vol] 9.0 mg/dL Normal 8.5-10.1 [facility] Comment on above: Performed By: #### C MADM, CMP, BNP ####[facility] [address] [place], [place] [address]Dr. Areli Yousif Chloride [Moles/Vol] 101 mmol/L Normal 98-107 [facility] Comment on above: Performed By: #### C MADM, CMP, BNP ####[facility] [address] [place] [address]Dr. Areli Yousif CO2 [Moles/Vol] 30.0 mmol/L Normal 21.0-32.0 [facility] Comment on above: Performed By: #### C MADM, CMP, BNP ####[facility] [address] [place], [place] [address]Dr. Areli Yousif Creatinine [Mass/Vol] 1.25 mg/dL Normal 0.70-1.30 [facility] Comment on above: Performed By: #### C MADM, CMP, BNP ####[facility] [address] [place], [place] [address]Dr. Areli Yousif EGFR-AF ICELANDIC >60 Normal >=60 [facility] Comment on above: Performed By: #### C MADM, CMP, BNP ####[facility] [address] [place] [address]Dr. Areli Yousif EGFR-NON AF ICELANDIC 57 mL/min/1.73m2 Critically low >=60 [facility] Comment on above: Performed By: #### C MADM, CMP, BNP ####[facility] [address] [place] [address]Dr. Areli Yousif Globulin (S) [Mass/Vol] 3.9 g/dL Normal [facility] Comment on above: Performed By: #### C MADM, CMP, BNP ####[facility] [address] [place] [address]Dr. Areli Yousif Glucose [Mass/Vol] 273 mg/dL Critically high 74-106 [facility] Comment on above: Performed By: #### C MADM, CMP, BNP ####[facility] [address] [place] [address]Dr. Areli Yousif Potassium [Moles/Vol] 5.6 mmol/L Critically high 3.5-5.1 [facility] Comment on above: Performed By: #### C MADDebbie, CMP, BNP ####[facility] [address] [place] [address]Dr. Areli Yousif Protein [Mass/Vol] 6.9 g/dL Normal 6.4-8.2 [facility] Comment on above: Performed By: #### C MADM, CMP, BNP ####[facility] [address] [place] [address]Dr. Areli Yousif Sodium [Moles/Vol] 134 mmol/L Critically low 136-145 [facility] Comment on above: Performed By: #### C MADM, CMP, BNP ####[facility] [address] [place] [address]Dr. Areli Yousif Urea nitrogen [Mass/Vol] 40.0 mg/dL Critically high 7.0-18.0 [facility] Comment on above: Performed By: #### C MADM, CMP, BNP ####[facility] [address] [place] [address]Dr. Areli Yousif Urea nitrogen/Creatinine [Mass ratio] 32.0 mg/mg Normal [facility] Comment on above: Performed By: #### C MADM, CMP, BNP ####[facility] [address] [place] [address]Dr. Areli Yousif PROTIMEon 12-17-2022 INR Coag (PPP) [Relative time] 1.02 {INR} Normal [facility] Comment on above: Performed By: #### P T, PTT ####[facility] [address] [place], [place] [address]Dr. Areli Yousif INR GUIDELINES SEE BELOW Normal [facility] Comment on above: Result Comment: LANDON RED INR: 2.0 - 3.0 CONDITIONS NOT LISTED BELOW 2.5 - 3.5 FOR PROSTHETIC HEART VALVE REPLACEMENT 2.5 - 3.5 RECURRENT THROMBOSIS Performed By: #### P T, PTT ####[facility] [address] [place], [place] [address]Dr. Areli Yousif PT Coag (PPP) [Time] 10.8 s Normal 9.0-11.6 [facility] Comment on above: Performed By: #### P T, PTT ####[facility] [address] [place], [place] [address]Dr. Areli Yousif PTTon 12-17-2022 aPTT Coag (Bld) [Time] 27.3 s Normal 22.3-36.2 [facility] Comment on above: Performed By: #### P T, PTT ####[facility] [address] [place], [place] [address]Dr. Areli Yousif XR CHEST 1 Von 12-17-2022 XR CHEST 1 V Normal [facility] XR HIP LT 2 3V W PELVISon XR HIP LT 2 3V W PELVIS Normal [facility] GLYCOHEMOGLOBIN A1Con 2022 ADA RECOMMENDATION SEE BELOW Normal [facility] Comment on above: Result Comment: ADA RECOMMENDED LIMIT 4.0 - 6.0 ADA THERAPEUTIC TARGET < 7.0 ACTION SUGGESTED > 7.0 Performed By: #### A 1C ####[facility] [address] [place] [address]Dr. Areli Yousif Glucose [Mass/Vol] 186 mg/dL Normal [facility] Comment on above: Performed By: #### A 1C ####[facility] [address] [place], [place] [address]Dr. Areli Benja HbA1c (Bld) [Mass fraction] 8.1 % Critically high 4.5-6.2 [facility] Comment on above: Performed By: #### A 1C ####[facility] [address]wk[address]bv[address] [place], [place] [address]Dr. Areli Benja CBC AUTO DIFFon 11-24-2022 BASO # 0.0 103/ul Normal 0.0-0.1 [facility] Comment on above: Performed By: #### C BC ####[facility] [id number] [place], [place] [address]Dr. Areli Benja Basophils/100 WBC (Bld) 0.1 % Critically low 0.2-2.0 [facility] Comment on above: Performed By: #### C BC ####[facility] Apvdlbeovx32[address] [place], [place] [address]DrDenae Areli Benja EO # 0.0 103/ul Normal 0.0-0.7 [facility] Comment on above: Performed By: #### C BC ####[facility] Dyrqururxv1235[address] [place], [place] [address]Dr. Areli Bejna Eosinophils/100 WBC (Bld) 0.0 % Critically low 0.9-7.0 [facility] Comment on above: Performed By: #### C BC ####[facility] Wqfjzpafbb10[address] [place], [place] [address]Dr. Areli Benja Erythrocyte distribution width (RBC) [Ratio] 12.8 % Normal 11.0-15.0 [facility] Comment on above: Performed By: #### C BC ####[facility] Wxjjxhfdfm18[address] [place], [place] [address]Dr. Tabbytulio Yousif Hematocrit (Bld) [Volume fraction] 32.3 % Critically low 42.0-54.0 [facility] Comment on above: Performed By: #### C BC ####[facility] [address]ledhwoxx[address] [place] [address]DrDenae Yousif Hemoglobin (Bld) [Mass/Vol] 10.5 g/dL Critically low 14.0-18.0 [facility] Comment on above: Performed By: #### C BC ####[facility] Jvqadrltdz235[address] [place], [place] [address]DrDenae Yousif IG # 0.03 10e3/ul Normal 0.00-0.03 [facility] Comment on above: Performed By: #### C BC ####[facility] Kddsunxfhc3462[address] [place], [place] [address]DrDenae Yousif IG % 0.4 % Normal 0.0-0.5 [facility] Comment on above: Performed By: #### C BC ####[facility] Gqnvvtvlrl668[address] [place], [place] [address]DrDenae Yousif LYMPH # 1.3 103/ul Normal 1.2-3.8 [facility] Comment on above: Performed By: #### C BC ####[facility] Hjvhhqeedr1982[address] [place], [place] [address]DrDenae Yousif Lymphocytes/100 WBC (Bld) 15.7 % Critically low 20.5-60.0 [facility] Comment on above: Performed By: #### C BC ####[facility] Hhxvylpkwg[address] [place], [place] [address]DrDenae Yousif MANUAL DIFF REQ NO Normal [facility] Comment on above: Performed By: #### C BC ####[facility] Aevetvenrz028[address] [place], [place] [address]DrDenae Yousif MCH (RBC) [Entitic mass] 28.5 pg Normal 25.9-34.0 [facility] Comment on above: Performed By: #### C BC ####[facility] Yyyajfzndp[address] [place], [place] [address]DrDenae Yousif MCHC (RBC) [Mass/Vol] 32.5 g/dL Normal 29.9-35.2 [facility] Comment on above: Performed By: #### C BC ####[facility] [address]iquvstcv[address] [place] [address]DrDenae Yousif MCV (RBC) [Entitic vol] 87.5 fL Normal 80.0-94.0 [facility] Comment on above: Performed By: #### C BC ####[facility] Izhnkekswe9444[address] [place], [place] [address]DrDenae Yousif MONO # 0.2 103/ul Critically low 0.3-0.8 [facility] Comment on above: Performed By: #### C BC ####[facility] Lugniniygp136199 [address] [place], [place] [address]DrDenae Yousif Monocytes/100 WBC (Bld) 2.9 % Normal 1.7-12.0 [facility] Comment on above: Performed By: #### C BC ####[facility] Uuvrtcrbhx1693[address] [place], [place] [address]DrDenae Yousif NEUT # 6.4 103/ul Normal 1.4-6.5 [facility] Comment on above: Performed By: #### C BC ####[facility] Smeagiyewc079[address] [place], [place] [address]DrDenae Yousif Neutrophils/100 WBC (Bld) 80.9 % Critically high 43.0-75.0 [facility] Comment on above: Performed By: #### C BC ####[facility] Fseplxreby8584[address] [place], [place] [address]DrDenae Yousif Platelet mean volume (Bld) [Entitic vol] 10.3 fL Normal 9.5-13.5 [facility] Comment on above: Performed By: #### C BC ####[facility] Iyxenrylia667[address] [place], [place] [address]DrDenae Yousif PLT 315 103/ul Normal 150-450 [facility] Comment on above: Performed By: #### C BC ####[facility] Bczqhbzcva1240[address] [place], [place] [address]DrDenae Yousif RBC 3.69 106/ul Critically low 4.70-6.10 [facility] Comment on above: Performed By: #### C BC ####[facility] Ogqtkqrfpr[address] [place] [address]Dr. Areli Yousif WBC 8.0 103/ul Normal 4.0-11.0 [facility] Comment on above: Performed By: #### C BC ####[facility] Mowypbagpt3666[address] [place], [place] [address]Dr. Areli Yousif POINT OF CARE GLUCOSEon 11-06 0-2022 Glucose [Mass/Vol] 386 mg/dL Critically high 74-106 [facility] Comment on above: Performed By: #### P OCGLUC ####[facility] Xjzblrdiyj2688[address] [place], [place] [address]Dr. Areli Yousif Glucose [Mass/Vol] 246 mg/dL Critically high 74-106 [facility] Comment on above: Performed By: #### P OCGLUC ####[facility] Pucxupqihy2344[address] [place], [place] [address]DrDenae Yousif PROF 14(COMP METB)on 023 Albumin [Mass/Vol] 2.4 g/dL Critically low 3.4-5.0 [facility] Comment on above: Performed By: #### C MP ####[facility] Bxyxydjvds2703[address] [place], [place] [address]Dr. Areli Yousif Albumin/Globulin [Mass ratio] 0.7 {ratio} Normal [facility] Comment on above: Performed By: #### C MP ####[facility] Bvvfmfkcxq65[address] [place], [place] [address]Dr. Areli Yousif ALP [Catalytic activity/Vol] 71 U/L Normal 46-116 [facility] Comment on above: Performed By: #### C MP ####[facility] Spbqnkzfxy9387[address] [place], [place] [address]Dr. Areli Yousif ALT [Catalytic activity/Vol] 20 U/L Normal 16-63 [facility] Comment on above: Performed By: #### C MP ####[facility] Cawcvczpnm7450[address] [place], [place] [address]Dr. Areli Yousif Anion gap [Moles/Vol] 14.2 mmol/L Normal [facility] Comment on above: Performed By: #### C MP ####[facility] Mqnhvcqixa2698[address] [place], [place] [address]Dr. Areli Yousif AST [Catalytic activity/Vol] 12 U/L Critically low 15-37 [facility] Comment on above: Performed By: #### C MP ####[facility] Pbtrnperxk17[address] [place], [place] [address]Dr. Areli Yousif Bilirubin [Mass/Vol] 0.2 mg/dL Normal 0.2-1.0 [facility] Comment on above: Performed By: #### C MP ####[facility] Oszjugorbr0726[address] [place], [place] [address]Dr. Areli Yousif Calcium [Mass/Vol] 8.8 mg/dL Normal 8.5-10.1 [facility] Comment on above: Performed By: #### C MP ####[facility] Nudbnavkdb2742[address] [place], [place] [address]Dr. Areli Yousif Chloride [Moles/Vol] 102 mmol/L Normal 98-107 [facility] Comment on above: Performed By: #### C MP ####[facility] Avdvcxxijc198[address] [place], [place] [address]Dr. Areli Yousif CO2 [Moles/Vol] 25.6 mmol/L Normal 21.0-32.0 [facility] Comment on above: Performed By: #### C MP ####[facility] Rcsebzquit864[address] [place], [place] [address]Dr. Areli Benja Creatinine [Mass/Vol] 0.98 mg/dL Normal 0.70-1.30 [facility] Comment on above: Performed By: #### C MP ####[facility] Nmojdqqsyt2035[address] [place], [place] [address]Dr. Areli Benja EGFR-AF ICELANDIC >60 Normal >=60 [facility] Comment on above: Performed By: #### C MP ####[facility] Pqeurbripi463[address] [place], [place] [address]Dr. Areli Yousif EGFR-NON AF ICELANDIC >60 Normal >=60 [facility] Comment on above: Performed By: #### C MP ####[facility] Ifminvmomd29[address] [place] [address]Dr. Areli Yousif Globulin (S) [Mass/Vol] 3.6 g/dL Normal [facility] Comment on above: Performed By: #### C MP ####[facility] Bflvhqjspi7[address] [place] [address]Dr. Areli Yousif Glucose [Mass/Vol] 236 mg/dL Critically high 74-106 [facility] Comment on above: Performed By: #### C MP ####[facility] Vvfdmvmscg6035 [place] [address]Dr. Areli Benja Potassium [Moles/Vol] 3.8 mmol/L Normal 3.5-5.1 [facility] Comment on above: Performed By: #### C MP ####[facility] Bfmqcwuimo3018[address] [place], [place] [address]Dr. Areli Yousif Protein [Mass/Vol] 6.0 g/dL Critically low 6.4-8.2 [facility] Comment on above: Performed By: #### C MP ####[facility] Hptyrqvbwz872[address] [place], [place] [address]Dr. Areli Benja Sodium [Moles/Vol] 138 mmol/L Normal 136-145 [facility] Comment on above: Performed By: #### C MP ####[facility] Cdzdqiqwda9859 [place] [address]Dr. Areli Benja Urea nitrogen [Mass/Vol] 29.0 mg/dL Critically high 7.0-18.0 [facility] Comment on above: Performed By: #### C MP ####[facility] Kujcuexnhf1300[address] [place], [place] [address]Dr. Areli Benja Urea nitrogen/Creatinine [Mass ratio] 29.6 mg/mg Normal [facility] Comment on above: Performed By: #### C MP ####[facility] Koxbwolotl15[address] [place] [address]Dr. Tabbytulio Benja CBC AUTO DIFFon 11-23-2022 BASO # 0.0 103/ul Normal 0.0-0.1 [facility] Comment on above: Performed By: #### C BC ####[facility] Rhnqkjmyhp7866 [place] [address]Dr. Areli Yousif Basophils/100 WBC (Bld) 0.1 % Critically low 0.2-2.0 [facility] Comment on above: Performed By: #### C BC ####[facility] Dmisodylnv3295[address] [place], [place] [address]Dr. Areli Yousif EO # 0.0 103/ul Normal 0.0-0.7 [facility] Comment on above: Performed By: #### C BC ####[facility] Oeynzztigw101[address] [place], [place] [address]Dr. Areli Yousif Eosinophils/100 WBC (Bld) 0.0 % Critically low 0.9-7.0 [facility] Comment on above: Performed By: #### C BC ####[facility] Mewjtiwoke526[address] [place], [place] [address]Dr. Areli Yousif Erythrocyte distribution width (RBC) [Ratio] 13.2 % Normal 11.0-15.0 [facility] Comment on above: Performed By: #### C BC ####[facility] Izqixfgisp2165[address] [place], [place] [address]Dr. Areli Yousif Hematocrit (Bld) [Volume fraction] 31.2 % Critically low 42.0-54.0 [facility] Comment on above: Performed By: #### C BC ####[facility] Dwghmjjcgo020[address] [place], [place] [address]Dr. Areli Yousif Hemoglobin (Bld) [Mass/Vol] 10.0 g/dL Critically low 14.0-18.0 [facility] Comment on above: Performed By: #### C BC ####[facility] Rahznodwqr066199 [address] [place], [place] [address]Dr. Areli Yousif IG # 0.06 10e3/ul Critically high 0.00-0.03 [facility] Comment on above: Performed By: #### C BC ####[facility] Fcyybnpywr2857[address] [place], [place] [address]Dr. Areli Yousif IG % 0.5 % Normal 0.0-0.5 [facility] Comment on above: Performed By: #### C BC ####[facility] Tlseleiobs7[address] [place] [address]DrDenae Yousif LYMPH # 2.1 103/ul Normal 1.2-3.8 [facility] Comment on above: Performed By: #### C BC ####[facility] Oeumpqqkxb7875 [place] [address]DrDenae Yousif Lymphocytes/100 WBC (Bld) 16.9 % Critically low 20.5-60.0 [facility] Comment on above: Performed By: #### C BC ####[facility] Lbtlkikorh3241 [place] [address]DrDenae Yousif MANUAL DIFF REQ NO Normal [facility] Comment on above: Performed By: #### C BC ####[facility] Swonmxcphh4845 [place] [address]DrDenae Tabbytulio Yousif MCH (RBC) [Entitic mass] 28.7 pg Normal 25.9-34.0 [facility] Comment on above: Performed By: #### C BC ####[facility] Dakkureoiq3410 [place] [address]DrDenae Areli Benja MCHC (RBC) [Mass/Vol] 32.1 g/dL Normal 29.9-35.2 [facility] Comment on above: Performed By: #### C BC ####[facility] Puhmudvawc3087 [place] [address]DrDenae Yousif MCV (RBC) [Entitic vol] 89.7 fL Normal 80.0-94.0 [facility] Comment on above: Performed By: #### C BC ####[facility] Mvdpiigxwo7706 [place] [address]DrDenae Yousif MONO # 0.5 103/ul Normal 0.3-0.8 [facility] Comment on above: Performed By: #### C BC ####[facility] Ydubrswyep8940 [place] [address]DrDenae Yousif Monocytes/100 WBC (Bld) 3.9 % Normal 1.7-12.0 [facility] Comment on above: Performed By: #### C BC ####[facility] Buaakrvqmc4503 [place] [address]Dr. Areli Yousif NEUT # 9.9 103/ul Critically high 1.4-6.5 [facility] Comment on above: Performed By: #### C BC ####[facility] Icwabkshjr1176 [place] [address]Dr. Areli Yousif Neutrophils/100 WBC (Bld) 78.6 % Critically high 43.0-75.0 [facility] Comment on above: Performed By: #### C BC ####[facility] Rkmnfjqxhr6540 [place] [address]Dr. Areli Yousif Platelet mean volume (Bld) [Entitic vol] 10.1 fL Normal 9.5-13.5 [facility] Comment on above: Performed By: #### C BC ####[facility] Etpuzmjfwc2146 [place] [address]Dr. Areli Yousif PLT 289 103/ul Normal 150-450 [facility] Comment on above: Performed By: #### C BC ####[facility] Zrjufzinil8580[address] [place], [place] [address]Dr. Areli Yousif RBC 3.48 106/ul Critically low 4.70-6.10 [facility] Comment on above: Performed By: #### C BC ####[facility] Nuwayjuduf8795 [place] [address]Dr. Areli Yousif WBC 12.6 103/ul Critically high 4.0-11.0 [facility] Comment on above: Performed By: #### C BC ####[facility] Wcaovftqks1007 [place] [address]Dr. Areli Yousif POINT OF CARE GLUCOSEon 11-05 Glucose [Mass/Vol] 277 mg/dL Critically high 74-106 [facility] Comment on above: Performed By: #### P OCGLUC ####[facility] Wvpmmnokxn1085[address] [place], [place] [address]Dr. Areli Yousif Glucose [Mass/Vol] 355 mg/dL Critically high 74-106 [facility] Comment on above: Performed By: #### P OCGLUC ####[facility] Dbgjfckfei2512 [place] [address]Dr. Areli Yousif Glucose [Mass/Vol] 252 mg/dL Critically high 74-106 [facility] Comment on above: Performed By: #### P OCGLUC ####[facility] Ksmjsohkpy7723 [place] [address]Dr. Areli Yousif PROF 14(COMP METB)on 023 Albumin [Mass/Vol] 2.3 g/dL Critically low 3.4-5.0 [facility] Comment on above: Performed By: #### C MP ####[facility] Wmkxthmbqc038[address] [place], [place] [address]Dr. Areli Yousif Albumin/Globulin [Mass ratio] 0.7 {ratio} Normal [facility] Comment on above: Performed By: #### C MP ####[facility] Hiewdmtpcq9083[address] [place], [place] [address]Dr. Areli Yousif ALP [Catalytic activity/Vol] 69 U/L Normal 46-116 [facility] Comment on above: Performed By: #### C MP ####[facility] Vvmgvskfhk2892[address] [place], [place] [address]Dr. Areli Yousif ALT [Catalytic activity/Vol] 17 U/L Normal 16-63 [facility] Comment on above: Performed By: #### C MP ####[facility] Bjfqvgjmaj1393[address] [place], [place] [address]Dr. Areli Yousif Anion gap [Moles/Vol] 13.8 mmol/L Normal [facility] Comment on above: Performed By: #### C MP ####[facility] Wbbjolnhpq9922[address] [place], [place] [address]Dr. Areli Yousif AST [Catalytic activity/Vol] 13 U/L Critically low 15-37 [facility] Comment on above: Performed By: #### C MP ####[facility] Qxhbolvomm7523[address] [place], [place] [address]Dr. Areli Yousif Bilirubin [Mass/Vol] 0.2 mg/dL Normal 0.2-1.0 [facility] Comment on above: Performed By: #### C MP ####[facility] Hdqwmomkpi9035[address] [place], [place] [address]Dr. Areli Yousif Calcium [Mass/Vol] 8.7 mg/dL Normal 8.5-10.1 [facility] Comment on above: Performed By: #### C MP ####[facility] Weavvfzmqr341[address] [place], [place] [address]Dr. Areli Yousif Chloride [Moles/Vol] 105 mmol/L Normal 98-107 [facility] Comment on above: Performed By: #### C MP ####[facility] Nyztmjpmva8807[address] [place], [place] [address]Dr. Areli Yousif CO2 [Moles/Vol] 24.8 mmol/L Normal 21.0-32.0 [facility] Comment on above: Performed By: #### C MP ####[facility] Cqsvyovptz1352[address] [place], [place] [address]Dr. Areli Yousif Creatinine [Mass/Vol] 1.05 mg/dL Normal 0.70-1.30 [facility] Comment on above: Performed By: #### C MP ####[facility] Sxeaosvxxq1545[address] [place], [place] [address]Dr. Areli Yousif EGFR-AF ICELANDIC >60 Normal >=60 [facility] Comment on above: Performed By: #### C MP ####[facility] Ltvusyhbzp9246[address] [place], [place] [address]Dr. Areli Benja EGFR-NON AF ICELANDIC >60 Normal >=60 [facility] Comment on above: Performed By: #### C MP ####[facility] Vlroyvidfa8908[address] [place], [place] [address]Dr. Areli Yousif Globulin (S) [Mass/Vol] 3.5 g/dL Normal [facility] Comment on above: Performed By: #### C MP ####[facility] Cfnizjdnuu1667[address] [place], [place] [address]Dr. Areli Yousif Glucose [Mass/Vol] 215 mg/dL Critically high 74-106 [facility] Comment on above: Performed By: #### C MP ####[facility] Xxopibkfgb2496 [place] [address]Dr. Areli Yousif Potassium [Moles/Vol] 3.6 mmol/L Normal 3.5-5.1 [facility] Comment on above: Performed By: #### C MP ####[facility] Enpjmfawms7283 [place] [address]Dr. Areli Yousif Protein [Mass/Vol] 5.8 g/dL Critically low 6.4-8.2 [facility] Comment on above: Performed By: #### C MP ####[facility] Tllpwzfcoo6304[address] [place], [place] [address]Dr. Areli Yousif Sodium [Moles/Vol] 140 mmol/L Normal 136-145 [facility] Comment on above: Performed By: #### C MP ####[facility] Oijacxjlnq5434[address] [place], [place] [address]Dr. Areli Yousif Urea nitrogen [Mass/Vol] 31.0 mg/dL Critically high 7.0-18.0 [facility] Comment on above: Performed By: #### C MP ####[facility] Xuyikczixx7972[address] [place], [place] [address]Dr. Areli Yousif Urea nitrogen/Creatinine [Mass ratio] 29.5 mg/mg Normal [facility] Comment on above: Performed By: #### C MP ####[facility] Nyfxvfmcmg5385[address] [place], [place] [address]Dr. Areli Yousif CBC AUTO DIFFon 11-22-2022 BASO # 0.0 103/ul Normal 0.0-0.1 [facility] Comment on above: Performed By: #### C BC ####[facility] Gcmkbqlhex1050[address] [place], [place] [address]Dr. Areli Yousif Basophils/100 WBC (Bld) 0.1 % Critically low 0.2-2.0 [facility] Comment on above: Performed By: #### C BC ####[facility] Iatioiwbbn424299 [address] [place], [place] [address]Dr. Areli Yousif EO # 0.0 103/ul Normal 0.0-0.7 [facility] Comment on above: Performed By: #### C BC ####[facility] Ljiumzakwj3310 [place] [address]Dr. Areli Yousif Eosinophils/100 WBC (Bld) 0.1 % Critically low 0.9-7.0 [facility] Comment on above: Performed By: #### C BC ####[facility] Wpliraxziy8334 [place] [address]Dr. Areli Yousif Erythrocyte distribution width (RBC) [Ratio] 13.2 % Normal 11.0-15.0 [facility] Comment on above: Performed By: #### C BC ####[facility] Lqggfjmzog092[address] [place], [place] [address]Dr. Areli Yousif Hematocrit (Bld) [Volume fraction] 31.1 % Critically low 42.0-54.0 [facility] Comment on above: Performed By: #### C BC ####[facility] Flegyhetlq942[address] [place], [place] [address]Dr. Areli Yousif Hemoglobin (Bld) [Mass/Vol] 10.0 g/dL Critically low 14.0-18.0 [facility] Comment on above: Performed By: #### C BC ####[facility] Ckrdgejmez551[address] [place], [place] [address]Dr. Areli Yousif IG # 0.07 10e3/ul Critically high 0.00-0.03 [facility] Comment on above: Performed By: #### C BC ####[facility] Mettglffkv5053 [place] [address]Dr. Areli Yousif IG % 0.5 % Normal 0.0-0.5 [facility] Comment on above: Performed By: #### C BC ####[facility] Zsezapkyqj1966[address] [place], [place] [address]Dr. Areli Yousif LYMPH # 1.3 103/ul Normal 1.2-3.8 [facility] Comment on above: Performed By: #### C BC ####[facility] Cqwesegbf[address] [place] [address]. Areli Yousif Lymphocytes/100 WBC (Bld) 9.7 % Critically low 20.5-60.0 [facility] Comment on above: Performed By: #### C BC ####[facility] Inyvesgbbl2821 [place] [address]Dr. Areli Yousif MANUAL DIFF REQ NO Normal [facility] Comment on above: Performed By: #### C BC ####[facility] Amjfcwczei8715 [place] [address]Dr. Areli Yousif MCH (RBC) [Entitic mass] 29.1 pg Normal 25.9-34.0 [facility] Comment on above: Performed By: #### C BC ####[facility] Hcvzhdxfux033[address] [place], [place] [address]Dr. Areli Yousif MCHC (RBC) [Mass/Vol] 32.2 g/dL Normal 29.9-35.2 [facility] Comment on above: Performed By: #### C BC ####[facility] Taatmjwsaf6893[address] [place], [place] [address]Dr. Areli Yousif MCV (RBC) [Entitic vol] 90.4 fL Normal 80.0-94.0 [facility] Comment on above: Performed By: #### C BC ####[facility] Uvnlbwrzqq8906[address] [place], [place] [address]Dr. Areli Yousif MONO # 0.4 103/ul Normal 0.3-0.8 [facility] Comment on above: Performed By: #### C BC ####[facility] Hmzupfvtwf3576[address] [place], [place] [address]Dr. Areli Yousif Monocytes/100 WBC (Bld) 2.9 % Normal 1.7-12.0 [facility] Comment on above: Performed By: #### C BC ####[facility] Htdmmulhrr33[address] [place], [place] [address]Dr. Areli Yousif NEUT # 11.7 103/ul Critically high 1.4-6.5 [facility] Comment on above: Performed By: #### C BC ####[facility] Unkvipbgpo088[address] [place], [place] [address]Dr. Areli Yousif Neutrophils/100 WBC (Bld) 86.7 % Critically high 43.0-75.0 [facility] Comment on above: Performed By: #### C BC ####[facility] Vudosejhbt6435 [place] [address]Dr. Areli Yousif Platelet mean volume (Bld) [Entitic vol] 10.4 fL Normal 9.5-13.5 [facility] Comment on above: Performed By: #### C BC ####[facility] Dapajftiqw3108 [place] [address]Dr. Areli Yousif PLT 263 103/ul Normal 150-450 [facility] Comment on above: Performed By: #### C BC ####[facility] Pxfppkonqo6836 [place] [address]Dr. Areli Yousif RBC 3.44 106/ul Critically low 4.70-6.10 [facility] Comment on above: Performed By: #### C BC ####[facility] Jjxnbbbiqu4456 [place] [address]Dr. Areli Yousif WBC 13.5 103/ul Critically high 4.0-11.0 [facility] Comment on above: Performed By: #### C BC ####[facility] Jufcqgjphm1470 [place] [address]Dr. Areli Yousif POINT OF CARE GLUCOSEon - Glucose [Mass/Vol] 239 mg/dL Critically high 74-106 [facility] Comment on above: Performed By: #### P OCGLUC ####[facility] Wlocpelkwq5275 [place] [address]Dr. Areli Yousif Glucose [Mass/Vol] 242 mg/dL Critically high 74-106 [facility] Comment on above: Performed By: #### P OCGLUC ####[facility] Mqthbpvedv7125 [place] [address]Dr. Areli Yousif Glucose [Mass/Vol] 231 mg/dL Critically high 74-106 [facility] Comment on above: Performed By: #### P OCGLUC ####[facility] Tixtjhghbq707[address] [place], [place] [address]Dr. Areli Benja Glucose [Mass/Vol] 203 mg/dL Critically high 74-106 [facility] Comment on above: Performed By: #### P OCGLUC ####[facility] [address]odlfz[address] [place] [address]Dr. Areli Yousif PROF 14(COMP METB)on 11-22- 023 Albumin [Mass/Vol] 2.2 g/dL Critically low 3.4-5.0 [facility] Comment on above: Performed By: #### C MP ####[facility] Xnbsemkpjz[address] [place] [address]Dr. Areli Yousif Albumin/Globulin [Mass ratio] 0.6 {ratio} Normal [facility] Comment on above: Performed By: #### C MP ####[facility] Ughskjplox[address] [place] [address]Dr. Areli Yousif ALP [Catalytic activity/Vol] 76 U/L Normal 46-116 [facility] Comment on above: Performed By: #### C MP ####[facility] Cqgwwdoxtb68[address] [place] [address]Dr. Areli Yousif ALT [Catalytic activity/Vol] 20 U/L Normal 16-63 [facility] Comment on above: Performed By: #### C MP ####[facility] Jlolzypvmu[address] [place] [address]Dr. Tabbytulio Benja Anion gap [Moles/Vol] 13.9 mmol/L Normal [facility] Comment on above: Performed By: #### C MP ####[facility] Sochjtasrk85[address] [place] [address]Dr. Areli Yousif AST [Catalytic activity/Vol] 14 U/L Critically low 15-37 [facility] Comment on above: Performed By: #### C MP ####[facility] Xuzatvnxdx18[address] [place] [address]Dr. Areli Yousif Bilirubin [Mass/Vol] 0.2 mg/dL Normal 0.2-1.0 [facility] Comment on above: Performed By: #### C MP ####[facility] Wxbmrofzln11[address] [place] [address]Dr. Areli Benja Calcium [Mass/Vol] 8.6 mg/dL Normal 8.5-10.1 [facility] Comment on above: Performed By: #### C MP ####[facility] Nxjtdewjsf44[address] [place] [address]Dr. Areli Benja Chloride [Moles/Vol] 106 mmol/L Normal 98-107 [facility] Comment on above: Performed By: #### C MP ####[facility] [address] [place], [place] [address]Dr. Areli Benja CO2 [Moles/Vol] 24.3 mmol/L Normal 21.0-32.0 [facility] Comment on above: Performed By: #### C MP ####[facility] Ugflgqromf[address] [place], [place] [address]Dr. Areli Benja Creatinine [Mass/Vol] 1.24 mg/dL Normal 0.70-1.30 [facility] Comment on above: Performed By: #### C MP ####[facility] Zligabrdfe[address] [place], [place] [address]Dr. Areli Benja EGFR-AF ICELANDIC >60 Normal >=60 [facility] Comment on above: Performed By: #### C MP ####[facility] Fakyqhffnp[address] [place], [place] [address]Dr. Areli Benja EGFR-NON AF ICELANDIC 58 mL/min/1.73m2 Critically low >=60 [facility] Comment on above: Performed By: #### C MP ####[facility] Egjkpnhwvp5[address] [place], [place] [address]Dr. Areli Benja Globulin (S) [Mass/Vol] 3.6 g/dL Normal [facility] Comment on above: Performed By: #### C MP ####[facility] Bqzxxbnjmb397[address] [place], [place] [address]Dr. Tabbytulio Benja Glucose [Mass/Vol] 208 mg/dL Critically high 74-106 [facility] Comment on above: Performed By: #### C MP ####[facility] C[address]mdhsuzla[address] [place], [place] [address]Dr. Areli Yousif Potassium [Moles/Vol] 4.2 mmol/L Normal 3.5-5.1 [facility] Comment on above: Performed By: #### C MP ####[facility] Kvrvvyxezx25[address] [place] [address]Dr. Areli Yousif Protein [Mass/Vol] 5.8 g/dL Critically low 6.4-8.2 [facility] Comment on above: Performed By: #### C MP ####[facility] V[address]xbnlxqdi99[address] [place], [place] [address]Dr. Areli Yousif Sodium [Moles/Vol] 140 mmol/L Normal 136-145 [facility] Comment on above: Performed By: #### C MP ####[facility] Egxvthquys[address] [place], [place] [address]Dr. Areli Yousif Urea nitrogen [Mass/Vol] 33.0 mg/dL Critically high 7.0-18.0 [facility] Comment on above: Performed By: #### C MP ####[facility] Hecntyvlaq[address] [place], [place] [address]Dr. Areli Yousif Urea nitrogen/Creatinine [Mass ratio] 26.6 mg/mg Normal [facility] Comment on above: Performed By: #### C MP ####[facility] Eljctmznqc[address] [place], [place] [address]Dr. Areli Yousif XR CHEST 1 Von 11-22-2022 XR CHEST 1 V Normal [facility] CBC AUTO DIFFon 11-21-2022 BASO # 0.0 103/ul Normal 0.0-0.1 [facility] Comment on above: Performed By: #### C BC ####[facility] Vzaexvqvge[address] [place], [place] [address]Dr. Areli Benja Basophils/100 WBC (Bld) 0.2 % Normal 0.2-2.0 [facility] Comment on above: Performed By: #### C BC ####[facility] Cqgyygziqh86[address] [place], [place] [address]Dr. Areli Yousif EO # 1.7 103/ul Critically high 0.0-0.7 [facility] Comment on above: Performed By: #### C BC ####[facility] Xxzojyidim34[address] [place] [address]Dr. Areli Yousif Eosinophils/100 WBC (Bld) 10.2 % Critically high 0.9-7.0 [facility] Comment on above: Performed By: #### C BC ####[facility] Vzybnqaihi[address] [place] [address]Dr. Areli Yousif Erythrocyte distribution width (RBC) [Ratio] 13.3 % Normal 11.0-15.0 [facility] Comment on above: Performed By: #### C BC ####[facility] Jkutskmtpi[address] [place], [place] [address]Dr. Areli Yousif Hematocrit (Bld) [Volume fraction] 31.3 % Critically low 42.0-54.0 [facility] Comment on above: Performed By: #### C BC ####[facility] V[address]sthtllfs[address] [place], [place] [address]Dr. Areli Yousif Hemoglobin (Bld) [Mass/Vol] 10.4 g/dL Critically low 14.0-18.0 [facility] Comment on above: Performed By: #### C BC ####[facility] Wnzypmbxwt0525[address] [place], [place] [address]Dr. Areli Yousif IG # 0.14 10e3/ul Critically high 0.00-0.03 [facility] Comment on above: Performed By: #### C BC ####[facility] Dyryhtbayc7938[address] [place], [place] [address]Dr. Areli Yousif IG % 0.9 % Critically high 0.0-0.5 [facility] Comment on above: Performed By: #### C BC ####[facility] Qahjnffljr9624[address] [place], [place] [address]Dr. Areli Yousif LYMPH # 1.8 103/ul Normal 1.2-3.8 [facility] Comment on above: Performed By: #### C BC ####[facility] Szyclrkyiq48[address] [place], [place] [address]Dr. Areli Yousif Lymphocytes/100 WBC (Bld) 11.0 % Critically low 20.5-60.0 [facility] Comment on above: Performed By: #### C BC ####[facility] Dgeaphoorx[address] [place] [address]Dr. Areli Yosuif MANUAL DIFF REQ NO Normal [facility] Comment on above: Performed By: #### C BC ####[facility] Eotfjvqmgb[address] [place] [address]Dr. Areli Yousif MCH (RBC) [Entitic mass] 29.5 pg Normal 25.9-34.0 [facility] Comment on above: Performed By: #### C BC ####[facility] Imahuafmoy[address] [place] [address]Dr. Areli Yousif MCHC (RBC) [Mass/Vol] 33.2 g/dL Normal 29.9-35.2 [facility] Comment on above: Performed By: #### C BC ####[facility] Ftbivensar[address] [place], [place] [address]Dr. Areli Yousif MCV (RBC) [Entitic vol] 88.9 fL Normal 80.0-94.0 [facility] Comment on above: Performed By: #### C BC ####[facility] Flbpnfhodg9[address] [place], [place] [address]Dr. Areli Yousif MONO # 0.9 103/ul Critically high 0.3-0.8 [facility] Comment on above: Performed By: #### C BC ####[facility] Qoogqxrozg5[address] [place], [place] [address]Dr. Areli Yousif Monocytes/100 WBC (Bld) 5.4 % Normal 1.7-12.0 [facility] Comment on above: Performed By: #### C BC ####[facility] Seirqoldro[address] [place], [place] [address]DrDenae Yousif NEUT # 11.8 103/ul Critically high 1.4-6.5 [facility] Comment on above: Performed By: #### C BC ####[facility] Fogshbstkg88[address] [place], [place] [address]Dr. Areli Yousif Neutrophils/100 WBC (Bld) 72.3 % Normal 43.0-75.0 [facility] Comment on above: Performed By: #### C BC ####[facility] Rrfediyjla4[address] [place] [address]Dr. Areli Yousif Platelet mean volume (Bld) [Entitic vol] 10.4 fL Normal 9.5-13.5 [facility] Comment on above: Performed By: #### C BC ####[facility] Drtabsddnh33[address] [place] [address]Dr. Areli Yousif PLT 215 103/ul Normal 150-450 [facility] Comment on above: Performed By: #### C BC ####[facility] Lfgqbowcoz07[address] [place] [address]Dr. Areli Benja RBC 3.52 106/ul Critically low 4.70-6.10 [facility] Comment on above: Performed By: #### C BC ####[facility] [address]vlf[address] [place] [address]Dr. Areli Benja WBC 16.3 103/ul Critically high 4.0-11.0 [facility] Comment on above: Performed By: #### C BC ####[facility] Swenqvixia[address] [place] [address]Dr. Areli Yousif POINT OF CARE GLUCOSEon 11-05 Glucose [Mass/Vol] 274 mg/dL Critically high 74-106 [facility] Comment on above: Performed By: #### P OCGLUC ####[facility] Yzsmkxwvly5[address] [place] [address]Dr. Areli Yousif Glucose [Mass/Vol] 197 mg/dL Critically high 74-106 [facility] Comment on above: Performed By: #### P OCGLUC ####[facility] Mtfwlnbkcc60[address] [place] [address]Dr. Areli Yousif Glucose [Mass/Vol] 135 mg/dL Critically high 74-106 [facility] Comment on above: Performed By: #### P OCGLUC ####[facility] Uzpyawizxf216[address] [place] [address]DrDenae Yousif PROF 14(COMP METB)on 02-17-2 023 Albumin [Mass/Vol] 2.1 g/dL Critically low 3.4-5.0 [facility] Comment on above: Performed By: #### C MP ####[facility] Hswgixuocd90[address] [place] [address]Dr. Tabbytulio Benja Albumin/Globulin [Mass ratio] 0.6 {ratio} Normal [facility] Comment on above: Performed By: #### C MP ####[facility] Xcyxdhxuna00[address] [place] [address]Dr. Areli Yousif ALP [Catalytic activity/Vol] 74 U/L Normal 46-116 [facility] Comment on above: Performed By: #### C MP ####[facility] Nudwjvjydn[address] [place], [place] [address]Dr. Areli Yousif ALT [Catalytic activity/Vol] 23 U/L Normal 16-63 [facility] Comment on above: Performed By: #### C MP ####[facility] Hgxspqpmeo7910[address] [place], [place] [address]Dr. Areli Yousif Anion gap [Moles/Vol] 13.2 mmol/L Normal [facility] Comment on above: Performed By: #### C MP ####[facility] Stpphhvcjg85[address] [place], [place] [address]Dr. Areli Yousif AST [Catalytic activity/Vol] 24 U/L Normal 15-37 [facility] Comment on above: Performed By: #### C MP ####[facility] Qgxuqedpds19[address] [place], [place] [address]Dr. Areli Yousif Bilirubin [Mass/Vol] 0.3 mg/dL Normal 0.2-1.0 [facility] Comment on above: Performed By: #### C MP ####[facility] Ifqtxgdosu5457[address] [place], [place] [address]Dr. Areli Yousif Calcium [Mass/Vol] 8.1 mg/dL Critically low 8.5-10.1 [facility] Comment on above: Performed By: #### C MP ####[facility] Uehaodipiu[address] [place], [place] [address]Dr. Areli Yousif Chloride [Moles/Vol] 106 mmol/L Normal 98-107 [facility] Comment on above: Performed By: #### C MP ####[facility] Groxlxktae[address] [place] [address]Dr. Areli Yousif CO2 [Moles/Vol] 22.9 mmol/L Normal 21.0-32.0 [facility] Comment on above: Performed By: #### C MP ####[facility] Mhmuzvtuki2980 [place] [address]Dr. Areli Yousif Creatinine [Mass/Vol] 1.20 mg/dL Normal 0.70-1.30 [facility] Comment on above: Performed By: #### C MP ####[facility] Clwnvvyaot7787 [place] [address]Dr. Areli Benja EGFR-AF ICELANDIC >60 Normal >=60 [facility] Comment on above: Performed By: #### C MP ####[facility] [address]otqwppc[address] [place], [place] [address]Dr. Tabbytulio Benja EGFR-NON AF ICELANDIC >60 Normal >=60 [facility] Comment on above: Performed By: #### C MP ####[facility] Ccrmbmjmoo97[address] [place], [place] [address]Dr. Areli Benja Globulin (S) [Mass/Vol] 3.4 g/dL Normal [facility] Comment on above: Performed By: #### C MP ####[facility] Teqoncjpua6476 [place] [address]Dr. Tabbytulio Benja Glucose [Mass/Vol] 187 mg/dL Critically high 74-106 [facility] Comment on above: Performed By: #### C MP ####[facility] Wcchrrpybq6334 [place] [address]Dr. Areli Yousif Potassium [Moles/Vol] 4.1 mmol/L Normal 3.5-5.1 [facility] Comment on above: Performed By: #### C MP ####[facility] Khssfzywel6850 [place] [address]Dr. Areli Yousif Protein [Mass/Vol] 5.5 g/dL Critically low 6.4-8.2 [facility] Comment on above: Performed By: #### C MP ####[facility] Dwrqmalyeq5965 [place] [address]Dr. Areli Yousif Sodium [Moles/Vol] 138 mmol/L Normal 136-145 [facility] Comment on above: Performed By: #### C MP ####[facility] Learkqhavs80[address] [place] [address]Dr. Areli Yousif Urea nitrogen [Mass/Vol] 24.0 mg/dL Critically high 7.0-18.0 [facility] Comment on above: Performed By: #### C MP ####[facility] Jgkyxokirz6278 [place] [address]Dr. Areli Yousif Urea nitrogen/Creatinine [Mass ratio] 20.0 mg/mg Normal [facility] Comment on above: Performed By: #### C MP ####[facility] Ndhhphctzd7523 [place] [address]Dr. Areli Yousif BNPon 11-20-2022 Natriuretic peptide B (Bld) [Mass/Vol] 2097.0 pg/mL Critically high <=900.0 [facility] Comment on above: Performed By: #### C MADM, CMP, BNP ####[facility] Hbcjbmjuzh[address] [place] [address]Dr. Areli Yousif CARDIAC ASHLEY ADMITon 023 CK [Catalytic activity/Vol] 50 U/L Normal 39-308 [facility] Comment on above: Performed By: #### C MADM, CMP, BNP ####[facility] Giigdindvv25[address] [place] [address]Dr. Areli Yousif CK.MB [Mass/Vol] ng/mL Normal <=3.60 [facility] Comment on above: Performed By: #### C MADM, CMP, BNP ####[facility] Wdshzzwbmb2176 [place] [address]Dr. Areli Yousif HSTROP 12.9 pg/mL Normal 4.0-76.1 [facility] Comment on above: Result Comment: CUT- OFF POINTS HAVE BEEN ESTABLISHED BASED ON THE FOURTH UNIVERSAL DEFINITIONS OF MYOCARDIALINFARCTION. THE UPPER REFERENCE LIMIT (URL) OF TROPONIN, DEFINED THE 99TH PERCENTILE OFcTnI DISTRIBUTION IN A REFERENCE POPULATION, HAS BEEN CONFIRMED THE DECISION THRESHOLDFOR NE DIAGNOSIS. Performed By: #### C MADM, CMP, BNP ####[facility] Yganwwwpln[address] [place] [address]Dr. Areli Yousif LAWRENCE 128 ng/mL Critically high 16-96 [facility] Comment on above: Performed By: #### C MADM, CMP, BNP ####[facility] Gffkjlqlhc6793 [place] [address]Dr. Areli Yousif CBC W MANUAL DIFFon 11-20-19 23 ATYPICAL LYMPH # Normal [facility] Comment on above: Performed By: #### C YOLETTE ####[facility] Velvicugwo[address] [place], [place] [address]Dr. Areli Benja ATYPICAL LYMPH % Normal [facility] Comment on above: Performed By: #### C YOLETTE ####[facility] Bfrmxfnndh5262 [place] [address]Dr. Areli Yousif BAND # 0.5 103/ul Critically high 0.0-0.3 [facility] Comment on above: Performed By: #### C YOLETTE ####[facility] Qjnxmrqrch10[address] [place], [place] [address]Dr. Areli Benja BAND % 3 % Normal 0-5 [facility] Comment on above: Performed By: #### C YOLETTE ####[facility] Iovfxjckfs4[address] [place], [place] [address]Dr. Areli Yousif BASOM # 0.00 103/ul Normal 0.00-0.10 [facility] Comment on above: Performed By: #### C YOLETTE ####[facility] Jigcmgjqwu39[address] [place] [address]Dr. Areli Yousif BASOM % 0.0 % Critically low 0.2-2.0 [facility] Comment on above: Performed By: #### C YOLETTE ####[facility] Gipisybbbg55[address] [place] [address]Dr. Areli Yousif BLAST # Normal [facility] Comment on above: Performed By: #### C YOLETTE ####[facility] Biignundjb3045 [place] [address]Dr. Areli Yousif BLAST % Normal [facility] Comment on above: Performed By: #### C YOLETTE ####[facility] Bhpbvuraai4883 [place] [address]Dr. Areli Yousif CORRECTED WBC Normal 4.0-11.0 [facility] Comment on above: Performed By: #### C YOLETTE ####[facility] Phtifijeca8516 [place] [address]Dr. Areli Yousif EOS # 0.00 103/ul Normal 0.00-0.70 [facility] Comment on above: Performed By: #### C YOLETTE ####[facility] Odxbbfaikr2231 [place] [address]Dr. Areli Yousif EOS% 0.0 % Critically low 0.9-7.0 [facility] Comment on above: Performed By: #### C YOLETTE ####[facility] Ijpzxoygxs3596 [place] [address]Dr. Areli Yousif HCT 37.7 % Critically low 42.0-54.0 [facility] Comment on above: Performed By: #### C YOLETTE ####[facility] Pwbygbywh[address] [place], [place] [address]Dr. Areli Yousif HGB 12.1 g/dl Critically low 14.0-18.0 [facility] Comment on above: Performed By: #### C YOLETTE ####[facility] Qexvjxhcsf9922 [place] [address]Dr. Areli Yousif LYMPHM # 0.15 103/ul Critically low 1.20-3.80 [facility] Comment on above: Performed By: #### C YOLETTE ####[facility] [address]blxzaliqk[address] [place], [place] [address]Dr. Areli Yousif LYMPHM% 1.0 % Critically low 20.5-60.0 [facility] Comment on above: Performed By: #### C YOLETTE ####[facility] [address]fhllpbxl[address] [place], [place] [address]Dr. Areli Yousif MCH 28.8 pg Normal 25.9-34.0 [facility] Comment on above: Performed By: #### Reed [place] ####[facility] Iwwlgtrcea6835 [place] [address]Dr. Areli Yousif MCHC 32.1 g/dl Normal 29.9-35.2 [facility] Comment on above: Performed By: #### Reed [place] ####[facility] Ncxkrtoqdj9337 [place] [address]Dr. Areli Yousif MCV 89.8 fL Normal 80.0-94.0 [facility] Comment on above: Performed By: #### Reed [place] ####[facility] Kzciwvwzeq13[address] [place] [address]Dr. Areli Yousif METAMYELOCYTE # Normal [facility] Comment on above: Performed By: #### Reed [place] ####[facility] [address]lykspiwyx[address] [place], [place] [address]Dr. Areli Yousif METAMYELOCYTE % Normal [facility] Comment on above: Performed By: #### Reed [place] ####[facility] Hmiutnttaq5107 [place] [address]Dr. Areli Yousif MONOM# 1.08 103/ul Critically high 0.30-0.80 [facility] Comment on above: Performed By: #### Reed [place] ####[facility] Xoywomdxiz16[address] [place] [address]Dr. Areli Yousif MONOM% 7.0 % Normal 1.7-12.0 [facility] Comment on above: Performed By: #### Reed [place] ####[facility] Abdkqdqvrn5554 [place] [address]Dr. Areli Yousif MPV 10.2 fL Normal 9.5-13.5 [facility] Comment on above: Performed By: #### C YOLETTE ####[facility] Aezfeufhwn1074 [place] [address]Dr. Areli Yousif MYELOCYTE # Normal [facility] Comment on above: Performed By: #### Reed [place] ####[facility] [address]zsekuzq[address] [place], [place] [address]Dr. Areli Yousif MYELOCYTE % Normal [facility] Comment on above: Performed By: #### C YOLETTE ####[facility] Fsljewznsr24[address] [place] [address]Dr. Areli Yousif NRBC Normal [facility] Comment on above: Performed By: #### C YOLETTE ####[facility] Ihmmylkgoi1421 [place] [address]Dr. Areli Yousif PLT 268 103/ul Normal 150-450 [facility] Comment on above: Performed By: #### C YOLETTE ####[facility] Bxpifgzzwe8405 [place] [address]Dr. Areli Yousif RBC 4.20 106/ul Critically low 4.70-6.10 [facility] Comment on above: Performed By: #### C YOLETTE ####[facility] Sejlwekfdd7[address] [place] [address]Dr. Areli Yousif RDW 13.2 % Normal 11.0-15.0 [facility] Comment on above: Performed By: #### C YOLETTE ####[facility] Thaxbvauzs2[address] [place] [address]Dr. Areli Yousif SEG # 13.71 103/ul Critically high 1.40-6.50 [facility] Comment on above: Performed By: #### C YOLETTE ####[facility] Exarvqiuwn6[address] [place] [address]Dr. Areli Yousif SEG % 89.0 % Critically high 43.0-75.0 [facility] Comment on above: Performed By: #### C YOLETTE ####[facility] Aogzgpqoaz8949 [place] [address]Dr. Areli Yousif TOXIC GRANULATION 2+ Normal [facility] Comment on above: Performed By: #### C YOLETTE ####[facility] Ekzntehhmh0922 [place] [address]Dr. Areli Yousif WBC 15.4 103/ul Critically high 4.0-11.0 [facility] Comment on above: Performed By: #### C YOLETTE ####[facility] Fxvjyxggfv7513 [place] [address]Dr. Areli Yousif CULTURE BLOODon 11-20-2022 Microscopic examination of blood, culture Culture Observations: NO GROWTH AT 5 DAYS. Normal [facility] Comment on above: Performed By: #### B LDCX1 ####[facility] Irvqflumri3[address] [place] [address]Dr. Areli Yousif Performed By: #### B LDCX2 ####[facility] Nlibcxycrd4540 [place] [address]Dr. Areli Yousif Covid-19 PCR (CVDTB)on 11-05 SARS-CoV-2 (COVID-19) RNA MANSI+probe Ql (Unsp spec) Detected Abnormal NOT DETECTED [facility] Comment on above: Result Comment: This test is not yet approved or cleared by the [place] FDA. When there are no FDA-approved or cleared tests available, and other criteria are met, FDA can make tests available under an emergency access mechanism called an Emergency Use Authorization (EUA). The EUA for this test is supported by the [place] of Health and Human Service's declaration that circumstances exist to justify the emergency use of in vitro diagnostics for the detection and/or diagnosis of the virus that causes COVID-19. This EUA will remain in effect for the duration of the COVID-19 declaration justifying emergency of IVDs, unless it is terminated or revoked by the FDA (after which the test may no longer be used). Performed By: #### C VDTBH ####[facility] Clzwxfqumv4917 [place] [address]Dr. Areli Yousif D-DIMERon 11-20-2022 D-DIMER 0.39 mg/L FEU Normal <=0.59 [facility] Comment on above: Performed By: #### D DIM ####[facility] Gxspqhgjms24[address] [place] [address]Dr. Areli [facility] D-DIMER COMMENTS SEE BELOW Normal [facility] Comment on above: Result Comment: Incr eases in D-Dimer concentration observed with thromboembolic events can be variable due to localization, size, and age of the thrombus. Therefore, a thromboembolic event cannot be diagnosed with certainty on the basis of the reference range. D-Dimers may also be elevated for a variety of disorders including: advanced age, , coronary disease, cancer, liver disease, infection, inflammation, hematoma, DIC, trauma, post-surgery, diabetes, thrombolytic or anticoagulant therapy, stress, and generalized hospitalization. Performed By: #### D DIM ####[facility] Gfoaydlhrt24[address] [place] [address]Dr. Areli Yousif LACTATE/LACTIC ACIDon 2022 Lactate [Moles/Vol] 1.6 mmol/L Normal 0.4-1.9 [facility] Comment on above: Performed By: #### L ACT ####[facility] [address]qyqth[address] [place], [place] [address]Dr. Areli Yousif PROF 14(COMP METB)on 023 Albumin [Mass/Vol] 2.7 g/dL Critically low 3.4-5.0 [facility] Comment on above: Performed By: #### C MADM, CMP, BNP ####[facility] [address] [place] [address]Dr. Areli Yousif Albumin/Globulin [Mass ratio] 0.8 {ratio} Normal [facility] Comment on above: Performed By: #### C MADM, CMP, BNP ####[facility] J[address]kf[address]zfo[address] [place] [address]Dr. Areli Yousif ALP [Catalytic activity/Vol] 91 U/L Normal 46-116 [facility] Comment on above: Performed By: #### C MADM, CMP, BNP ####[facility] Fcrirhidyj[address] [place] [address]Dr. Areli Yousif ALT [Catalytic activity/Vol] 23 U/L Normal 16-63 [facility] Comment on above: Performed By: #### C MADM, CMP, BNP ####[facility] Zksknazqhq35[address] [place] [address]Dr. Areli Yousif Anion gap [Moles/Vol] 13.4 mmol/L Normal [facility] Comment on above: Performed By: #### C MADM, CMP, BNP ####[facility] Dhojagokvy[address] [place] [address]Dr. Areli Yousif AST [Catalytic activity/Vol] 24 U/L Normal 15-37 [facility] Comment on above: Performed By: #### C MADM, CMP, BNP ####[facility] Spyqdqrhvi[address] [place] [address]Dr. Areli Yousif Bilirubin [Mass/Vol] 0.3 mg/dL Normal 0.2-1.0 [facility] Comment on above: Performed By: #### C MADM, CMP, BNP ####[facility] Binsyrblaa[address] [place] [address]Dr. Areli Yousif Calcium [Mass/Vol] 8.6 mg/dL Normal 8.5-10.1 [facility] Comment on above: Performed By: #### C MADM, CMP, BNP ####[facility] Hmkgemexpz[address] [place] [address]Dr. Areli Yousif Chloride [Moles/Vol] 102 mmol/L Normal 98-107 [facility] Comment on above: Performed By: #### C MADM, CMP, BNP ####[facility] Rnlnsfykpx6[address] [place] [address]Dr. Areli Yousif CO2 [Moles/Vol] 24.7 mmol/L Normal 21.0-32.0 [facility] Comment on above: Performed By: #### C MADM, CMP, BNP ####[facility] Ugvzimpxpx[address] [place] [address]Dr. Areli Yousif Creatinine [Mass/Vol] 1.45 mg/dL Critically high 0.70-1.30 [facility] Comment on above: Performed By: #### C MADM, CMP, BNP ####[facility] Knookpkjlz[address] [place] [address]Dr. Areli Yousif EGFR-AF ICELANDIC 58 mL/min/1.73m2 Critically low >=60 [facility] Comment on above: Performed By: #### C MADM, CMP, BNP ####[facility] Yfkqvcxzzf25[address] [place] [address]Dr. Areli Yousif EGFR-NON AF ICELANDIC 48 mL/min/1.73m2 Critically low >=60 [facility] Comment on above: Performed By: #### C MADM, CMP, BNP ####[facility] Bwoqyranew[address] [place] [address]Dr. Areli Yousif Globulin (S) [Mass/Vol] 3.6 g/dL Normal [facility] Comment on above: Performed By: #### C MADM, CMP, BNP ####[facility] Vbzdvxeqbt[address] [place] [address]Dr. Areli Yousif Glucose [Mass/Vol] 328 mg/dL Critically high 74-106 T [facility] Comment on above: Performed By: #### C MADM, CMP, BNP ####[facility] Nvyirzkybt6[address] [place] [address]Dr. Areli Yousif Potassium [Moles/Vol] 4.1 mmol/L Normal 3.5-5.1 [facility] Comment on above: Performed By: #### C MADM, CMP, BNP ####[facility] [address] [place], [place] [address]Dr. Areli Yousif Protein [Mass/Vol] 6.3 g/dL Critically low 6.4-8.2 Th [facility] Comment on above: Performed By: #### C MADM, CMP, BNP ####[facility] Hcaojbzqto[address] [place] [address]Dr. Areli Yousif Sodium [Moles/Vol] 136 mmol/L Normal 136-145 [facility] Comment on above: Performed By: #### C MADM, CMP, BNP ####[facility] Fnzbewvhky19[address] [place] [address]Dr. Areli Yousif Urea nitrogen [Mass/Vol] 24.0 mg/dL Critically high 7.0-18.0 [facility] Comment on above: Performed By: #### C MADM, CMP, BNP ####[facility] Cvrsyuddav[address] [place] [address]Dr. Areli Yousif Urea nitrogen/Creatinine [Mass ratio] 16.6 mg/mg Normal [facility] Comment on above: Performed By: #### C MADM, CMP, BNP ####[facility] [address]cq[address]ismso[address] [place] [address]Dr. Areli Yousif XR CHEST 1 Von 11-20-2022 XR CHEST 1 V Normal [facility] Outside Recordson 10-27-2022 Outside Records [id number]#1. 00OTGTIFF [facility] Outside Recordson 10-21-2022 Outside Records [id number]#1.0 0OTGTIFF Normal [facility] Outside Records [id number]#1.0 0OTGTIFF [facility] Outside Recordson 10-10-2022 Outside Records [id number]#1. 00OTGTIFF [facility] BNPon 10-08-2022 Natriuretic peptide B (Bld) [Mass/Vol] 508.0 pg/mL Normal <=900.0 [facility] Comment on above: Performed By: #### L IPA, CMADM, BNP, CMP ####[facility] Wholttbvgz[address] [place] [address]Dr. Tabbytulio Yousif CARDIAC ASHLEY ADMITon 023 CK [Catalytic activity/Vol] 40 U/L Normal 39-308 [facility] Comment on above: Performed By: #### L IPA, CMADM, BNP, CMP ####[facility] [address]av[address]zzhu[address] [place] [address]Dr. Areli Yousif CK.MB [Mass/Vol] 1.52 ng/mL Normal <=3.60 [facility] Comment on above: Performed By: #### L IPA, CMADM, BNP, CMP ####[facility] Pkrfzjaamo75[address] [place] [address]Dr. Areli Benja HSTROP 12.5 pg/mL Normal 4.0-76.1 [facility] Comment on above: Result Comment: CUT- OFF POINTS HAVE BEEN ESTABLISHED BASED ON THE FOURTH UNIVERSAL DEFINITIONS OF MYOCARDIALINFARCTION. THE UPPER REFERENCE LIMIT (URL) OF TROPONIN, DEFINED THE 99TH PERCENTILE OFcTnI DISTRIBUTION IN A REFERENCE POPULATION, HAS BEEN CONFIRMED THE DECISION THRESHOLDFOR NE DIAGNOSIS. Performed By: #### L IPA, CMADM, BNP, CMP ####[facility] Msdboffqta[address] [place] [address]Dr. Areli Yousif LAWRENCE 92 ng/mL Normal 16-96 [facility] Comment on above: Performed By: #### L IPA, CMADM, BNP, CMP ####[facility] Bfebmjiwdc33[address] [place] [address]Dr. Areli Benja CBC AUTO DIFFon 10-08-2022 BASO # 0.1 103/ul Normal 0.0-0.1 [facility] Comment on above: Performed By: #### C BC ####[facility] [address] [place], [place] [address]Dr. Areli Yousif Basophils/100 WBC (Bld) 0.5 % Normal 0.2-2.0 [facility] Comment on above: Performed By: #### C BC ####[facility] [address]xhiwxtyfg[address] [place], [place] [address]Dr. Tabbytulio Yousif EO # 0.4 103/ul Normal 0.0-0.7 [facility] Comment on above: Performed By: #### C BC ####[facility] [address]dczcnvk[address] [place], [place] [address]Dr. Areli Yousif Eosinophils/100 WBC (Bld) 3.4 % Normal 0.9-7.0 [facility] Comment on above: Performed By: #### C BC ####[facility] [address]eieglur[address] [place], [place] [address]Dr. Areli Yousif Erythrocyte distribution width (RBC) [Ratio] 13.1 % Normal 11.0-15.0 [facility] Comment on above: Performed By: #### C BC ####[facility] Iapcmdbbbu[address] [place], [place] [address]Dr. Areli Yousif Hematocrit (Bld) [Volume fraction] 35.4 % Critically low 42.0-54.0 [facility] Comment on above: Performed By: #### C BC ####[facility] [address]umnnc[address] [place] [address]Dr. Areli Yousif Hemoglobin (Bld) [Mass/Vol] 11.6 g/dL Critically low 14.0-18.0 [facility] Comment on above: Performed By: #### C BC ####[facility] Msgtkmtinm[address]70 [place] [address]Dr. Areli Yousif IG # 0.06 10e3/ul Critically high 0.00-0.03 [facility] Comment on above: Performed By: #### C BC ####[facility] Hxcwsnhsop20[address] [place] [address]Dr. Areli Yousif IG % 0.5 % Normal 0.0-0.5 [facility] Comment on above: Performed By: #### C BC ####[facility] Ivemkaeofq5[address] [place] [address]Dr. Areli Yousif LYMPH # 2.9 103/ul Normal 1.2-3.8 [facility] Comment on above: Performed By: #### C BC ####[facility] Nxmqsrjdqt89[address] [place] [address]Dr. Areli Yousif Lymphocytes/100 WBC (Bld) 26.2 % Normal 20.5-60.0 [facility] Comment on above: Performed By: #### C BC ####[facility] Hxdfltoglw7[address] [place] [address]Dr. Areli Yousif MANUAL DIFF REQ NO Normal [facility] Comment on above: Performed By: #### C BC ####[facility] Eofrgppvxa[address] [place] [address]Dr. Areli Yousif MCH (RBC) [Entitic mass] 29.2 pg Normal 25.9-34.0 [facility] Comment on above: Performed By: #### C BC ####[facility] [address]puxwkjyex[address] [place] [address]Dr. Areli Yousif MCHC (RBC) [Mass/Vol] 32.8 g/dL Normal 29.9-35.2 [facility] Comment on above: Performed By: #### C BC ####[facility] Mpywdfsubx23[address] [place] [address]Dr. Areli Yousif MCV (RBC) [Entitic vol] 89.2 fL Normal 80.0-94.0 [facility] Comment on above: Performed By: #### C BC ####[facility] Nsglqggrur8[address] [place] [address]Dr. Areli Yousif MONO # 0.7 103/ul Normal 0.3-0.8 [facility] Comment on above: Performed By: #### C BC ####[facility] Fcuftaneia[address] [place], [place] [address]Dr. Areli Yousif Monocytes/100 WBC (Bld) 6.1 % Normal 1.7-12.0 [facility] Comment on above: Performed By: #### C BC ####[facility] Uyhxsknsya[address] [place], [place] [address]Dr. Areli Yousif NEUT # 7.0 103/ul Critically high 1.4-6.5 [facility] Comment on above: Performed By: #### C BC ####[facility] [address]fexqvyym[address] [place], [place] [address]Dr. Areli Yousif Neutrophils/100 WBC (Bld) 63.3 % Normal 43.0-75.0 [facility] Comment on above: Performed By: #### C BC ####[facility] Rjgtezaoed[address] [place], [place] [address]Dr. Areli Yousif Platelet mean volume (Bld) [Entitic vol] 10.3 fL Normal 9.5-13.5 [facility] Comment on above: Performed By: #### C BC ####[facility] [address]pgkaktt[address] [place], [place] [address]Dr. Areli Yousif PLT 317 103/ul Normal 150-450 [facility] Comment on above: Performed By: #### C BC ####[facility] [address]ktwlnqnc[address] [place], [place] [address]Dr. Areli Yousif RBC 3.97 106/ul Critically low 4.70-6.10 [facility] Comment on above: Performed By: #### C BC ####[facility] [address] [place], [place] [address]Dr. Areli Yousif WBC 11.0 103/ul Normal 4.0-11.0 [facility] Comment on above: Performed By: #### C BC ####[facility] Fdfdbofaor[address] [place] [address]Dr. Areli Benja CT FACIAL BONES WO CONon CT FACIAL BONES WO CON Normal Th e [facility] LIPASEon 10-08-2022 Lipase [Catalytic activity/Vol] 133.0 U/L Normal 73.0-393.0 [facility] Comment on above: Performed By: #### L IPA, CMADM, BNP, CMP ####[facility] Ufdmvdbege6[address] [place] [address]Dr. Tabbytulio Benja PH VENOUS BLOODon 10-08-2022 PCO2 VENOUS 43.2 mmHg Normal 40.0-52.0 [facility] Comment on above: Performed By: #### P HVEN ####[facility] Zovgvkneni[address] [place] [address]Dr. Areli Yousif pH VENOUS 7.276 Critically low 7.330-7.430 [facility] Comment on above: Performed By: #### P HVEN ####[facility] Yqfslysuav[address] [place] [address]Dr. Areli Yousif PROF 14(COMP METB)on 023 Albumin [Mass/Vol] 2.9 g/dL Critically low 3.4-5.0 Th [facility] Comment on above: Performed By: #### L IPA, CMADM, BNP, CMP ####[facility] Tmapflnavy0471 [place] [address]Dr. Areli Yousif Albumin/Globulin [Mass ratio] 0.7 {ratio} Normal [facility] Comment on above: Performed By: #### L IPA, CMADM, BNP, CMP ####[facility] Hiarxdoofs64[address] [place] [address]Dr. Areli Yousif ALP [Catalytic activity/Vol] 87 U/L Normal 46-116 [facility] Comment on above: Performed By: #### L IPA, CMADM, BNP, CMP ####[facility] Ppapempugs0570 [place] [address]Dr. Areli Yousif ALT [Catalytic activity/Vol] 18 U/L Normal 16-63 [facility] Comment on above: Performed By: #### L IPA, CMADM, BNP, CMP ####[facility] Xpdugowjhg9502 [place] [address]Dr. Areli Yousif Anion gap [Moles/Vol] 16.1 mmol/L Normal [facility] Comment on above: Performed By: #### L IPA, CMADM, BNP, CMP ####[facility] Vhpnndvadi3874 [place] [address]Dr. Areli Yousif AST [Catalytic activity/Vol] 14 U/L Critically low 15-37 [facility] Comment on above: Performed By: #### L IPA, CMADM, BNP, CMP ####[facility] Pmthissmef3231 [place] [address]Dr. Tabbytulio Yousif Bilirubin [Mass/Vol] 0.2 mg/dL Normal 0.2-1.0 [facility] Comment on above: Performed By: #### L IPA, CMADM, BNP, CMP ####[facility] [address]ybs[address]kw[address] [place], [place] [address]Dr. Tabbytulio Yousif Calcium [Mass/Vol] 8.8 mg/dL Normal 8.5-10.1 [facility] Comment on above: Performed By: #### L IPA, CMADM, BNP, CMP ####[facility] Cxfbkqiegl1384 [place] [address]Dr. Tabbytulio Yousif Chloride [Moles/Vol] 103 mmol/L Normal 98-107 [facility] Comment on above: Performed By: #### L IPA, CMADM, BNP, CMP ####[facility] [address]irxxajkex[address] [place], [place] [address]Dr. Tabbytulio Yousif CO2 [Moles/Vol] 21.4 mmol/L Normal 21.0-32.0 [facility] Comment on above: Performed By: #### L IPA, CMADM, BNP, CMP ####[facility] Msvgqejccd29[address] [place] [address]Dr. Areli Yousif Creatinine [Mass/Vol] 1.35 mg/dL Critically high 0.70-1.30 [facility] Comment on above: Performed By: #### L IPA, CMADM, BNP, CMP ####[facility] Wedmlviycg5348 [place] [address]Dr. Tabbytulio Benja EGFR-AF ICELANDIC >60 Normal >=60 [facility] Comment on above: Performed By: #### L IPA, CMADM, BNP, CMP ####[facility] Mpmglwazdl7121 [place] [address]Dr. Tabbytulio Benja EGFR-NON AF ICELANDIC 53 mL/min/1.73m2 Critically low >=60 [facility] Comment on above: Performed By: #### L IPA, CMADM, BNP, CMP ####[facility] Pmxrgzakor7662 [place] [address]Dr. Areli Yousif Globulin (S) [Mass/Vol] 3.9 g/dL Normal [facility] Comment on above: Performed By: #### L IPA, CMADM, BNP, CMP ####[facility] Wrdxjxclct4331 [place] [address]Dr. Areli Yousif Glucose [Mass/Vol] 276 mg/dL Critically high 74-106 [facility] Comment on above: Performed By: #### L IPA, CMADM, BNP, CMP ####[facility] Cckapmtopn5007 [place] [address]Dr. Areli Yousif Potassium [Moles/Vol] 4.5 mmol/L Normal 3.5-5.1 [facility] Comment on above: Performed By: #### L IPA, CMADM, BNP, CMP ####[facility] Nmzxdrtlqf0866 [place] [address]Dr. Areli Yousif Protein [Mass/Vol] 6.8 g/dL Normal 6.4-8.2 [facility] Comment on above: Performed By: #### L IPA, CMADM, BNP, CMP ####[facility] Xkgypviueg3589 [place] [address]Dr. Areli Yousif Sodium [Moles/Vol] 136 mmol/L Normal 136-145 [facility] Comment on above: Performed By: #### L IPA, CMADM, BNP, CMP ####[facility] Bckrfjuwby0426 [place] [address]Dr. Areli Yousif Urea nitrogen [Mass/Vol] 44.0 mg/dL Critically high 7.0-18.0 [facility] Comment on above: Performed By: #### L IPA, CMADM, BNP, CMP ####[facility] U[address]bpbpfcj[address] [place], [place] [address]Dr. Areli Yousif Urea nitrogen/Creatinine [Mass ratio] 32.6 mg/mg Normal [facility] Comment on above: Performed By: #### L IPA, CMADM, BNP, CMP ####[facility] Vkkgaciaho[address] [place], [place] [address]Dr. Areli Yousif PROTIMEon 10-08-2022 INR Coag (PPP) [Relative time] 1.04 {INR} Normal [facility] Comment on above: Performed By: #### P T, PTT ####[facility] [address]nmoomedhx[address] [place], [place] [address]Dr. Areli Yousif INR GUIDELINES SEE BELOW Normal [facility] Comment on above: Result Comment: LANDON RED INR: 2.0 - 3.0 CONDITIONS NOT LISTED BELOW 2.5 - 3.5 FOR PROSTHETIC HEART VALVE REPLACEMENT 2.5 - 3.5 RECURRENT THROMBOSIS Performed By: #### P T, PTT ####[facility] Xldnlcodlt[address] [place], [place] [address]Dr. Areli Yousif PT Coag (PPP) [Time] 11.2 s Normal 9.0-11.6 [facility] Comment on above: Performed By: #### P T, PTT ####[facility] M[address]xqknpa[address] [place], [place] [address]Dr. Areli Yousif PTTon 10-08-2022 aPTT Coag (Bld) [Time] 28.0 s Normal 22.3-36.2 Th [facility] Comment on above: Performed By: #### P T, PTT ####[facility] [address]wryqlsyd[address] [place], [place] [address]Dr. Areli Yousif XR CHEST 1 Von 10-08-2022 XR CHEST 1 V Normal [facility] XR HUMERUS RT MIN 2 Von XR HUMERUS RT MIN 2 V Normal [facility] CBC AUTO DIFFon 10-07-2022 BASO # 0.1 103/ul Normal 0.0-0.1 [facility] Comment on above: Performed By: #### C BC ####[facility] Lqbzqwaqie32[address] [place] [address]Dr. Areli Yousif Basophils/100 WBC (Bld) 0.6 % Normal 0.2-2.0 [facility] Comment on above: Performed By: #### C BC ####[facility] Ddwormiogf[address] [place], [place] [address]Dr. Areli Yousif EO # 0.4 103/ul Normal 0.0-0.7 [facility] Comment on above: Performed By: #### C BC ####[facility] Rfosfjhqpq7[address] [place], [place] [address]Dr. Areli Yousif Eosinophils/100 WBC (Bld) 3.5 % Normal 0.9-7.0 [facility] Comment on above: Performed By: #### C BC ####[facility] Ikfeozbldu[address] [place], [place] [address]Dr. Areli Yousif Erythrocyte distribution width (RBC) [Ratio] 13.4 % Normal 11.0-15.0 [facility] Comment on above: Performed By: #### C BC ####[facility] [address]ivjwuau[address] [place], [place] [address]Dr. Areli Yousif Hematocrit (Bld) [Volume fraction] 36.6 % Critically low 42.0-54.0 [facility] Comment on above: Performed By: #### C BC ####[facility] Pyqtihaahr6[address] [place], [place] [address]Dr. Areli Youisf Hemoglobin (Bld) [Mass/Vol] 12.1 g/dL Critically low 14.0-18.0 [facility] Comment on above: Performed By: #### C BC ####[facility] Hxlwqpxltc[address] [place], [place] [address]Dr. Areli Yousif IG # 0.04 10e3/ul Critically high 0.00-0.03 [facility] Comment on above: Performed By: #### C BC ####[facility] Cftgzbikir5330 [place] [address]DrDenae Areli Benja IG % 0.4 % Normal 0.0-0.5 [facility] Comment on above: Performed By: #### C BC ####[facility] Mukmtlptnr7316 [place] [address]DrDenae Mcnairtulio Benja LYMPH # 4.1 103/ul Critically high 1.2-3.8 [facility] Comment on above: Performed By: #### C BC ####[facility] Rtbmnscxjn[address] [place], [place] [address]DrDenae Yousif Lymphocytes/100 WBC (Bld) 38.0 % Normal 20.5-60.0 [facility] Comment on above: Performed By: #### C BC ####[facility] Rurqsddgif[address] [place], [place] [address]DrDenae Tabbytulio Yousif MANUAL DIFF REQ NO Normal [facility] Comment on above: Performed By: #### C BC ####[facility] Jwrbebaggs[address] [place], [place] [address]DrDenae Areli Benja MCH (RBC) [Entitic mass] 29.1 pg Normal 25.9-34.0 [facility] Comment on above: Performed By: #### C BC ####[facility] Hgxenerued65[address] [place], [place] [address]DrDenae Yousif MCHC (RBC) [Mass/Vol] 33.1 g/dL Normal 29.9-35.2 [facility] Comment on above: Performed By: #### C BC ####[facility] Xaxeuosquo22[address] [place], [place] [address]DrDenae Yousif MCV (RBC) [Entitic vol] 88.0 fL Normal 80.0-94.0 [facility] Comment on above: Performed By: #### C BC ####[facility] Oildxozxne[address] [place], [place] [address]DrDenae Yousif MONO # 0.5 103/ul Normal 0.3-0.8 [facility] Comment on above: Performed By: #### C BC ####[facility] Alisqcratb15[address] [place] [address]Dr. Areli Yousif Monocytes/100 WBC (Bld) 4.9 % Normal 1.7-12.0 [facility] Comment on above: Performed By: #### C BC ####[facility] Tvrypebvhi2143 [place] [address]Dr. Areli Yousif NEUT # 5.6 103/ul Normal 1.4-6.5 [facility] Comment on above: Performed By: #### C BC ####[facility] Fanzleednb7487 [place] [address]Dr. Areli Yousif Neutrophils/100 WBC (Bld) 52.6 % Normal 43.0-75.0 [facility] Comment on above: Performed By: #### C BC ####[facility] Xtmrcrrnqs[address] [place], [place] [address]Dr. Areli Yousif Platelet mean volume (Bld) [Entitic vol] 10.4 fL Normal 9.5-13.5 [facility] Comment on above: Performed By: #### C BC ####[facility] Zmajqimiyj[address] [place], [place] [address]Dr. Areli Yousif PLT 338 103/ul Normal 150-450 [facility] Comment on above: Performed By: #### C BC ####[facility] Begflvszle4780 [place] [address]Dr. Areli Yousif RBC 4.16 106/ul Critically low 4.70-6.10 [facility] Comment on above: Performed By: #### C BC ####[facility] Mvybthvkkx76[address] [place] [address]Dr. Areil Yousif WBC 10.7 103/ul Normal 4.0-11.0 [facility] Comment on above: Performed By: #### C BC ####[facility] Pnneuncnik[address] [place] [address]Dr. Areli Yousif CT CSPINE WO CONon 3 CT CSPINE WO CON Normal [facility] CT STROKE HEAD WOon 10-07-[address] STROKE HEAD WO Normal [facility] ([facility])on SARS-CoV-2 (COVID-19) RNA MANSI+probe Ql (Unsp spec) Not detected Normal NOT DETECTED [facility] Comment on above: Result Comment: When diagnostic testing is negative, the possibility of a false negative should be considered inthe context of a patient's recent exposures and the presence of clinical signs and symptomsconsistent with SARS-CoV-2.This test is not yet approved or cleared by the [place] FDA. When there are no FDA-approved or cleared tests available, and other criteria are met, FDA can make tests available under an emergency access mechanism called an Emergency Use Authorization (EUA). The EUA for this test is supported by the [place] of Health and Human Service's declaration that circumstances exist to justify the emergency use of in vitro diagnostics for the detection and/or diagnosis of the virus that causes COVID-19. This EUA will remain in effect for the duration of the COVID-19 declaration justifying emergency of IVDs, unless it is terminated or revoked by the FDA (after which the test may no longer be used). Performed By: #### C VDTBH ####[facility] [address]laraof[address] [place], [place] [address]Dr. Areli Yousif INFLUENZA A [facility] B [facility]on 10-[facility] BEL[facility] Normal [facility] Comment on above: Result Comment: Nega tive for Flu A protein angiten. Infection due to Flu A cannot be ruled out. Flu A angiten in the sample may be below the detection limit of the test. Performed By: #### I NFLUAB ####[facility] Qrpdbqmkxp89[address] [place] [address]Dr. Areli Yousif INFLUBNEG SEE BELOW Normal [facility] Comment on above: Result Comment: Nega tive for Flu B protein antigen. Infection due to Flu B cannot be ruled out. Flu B antigen in the sample may be below the detection limit of the test. Performed By: #### I NFLUAB ####[facility] [address]nx[address] [place], [place] [address]Dr. Areli Yousif INFLUENZA A AG Negative Normal NEGATIVE SEE COMMENT [facility] Comment on above: Performed By: #### I NFLUAB ####[facility] [facility] [address] [place], [place] [address]Dr. Areli Yousif INFLUENZA B AG Negative Normal NEGATIVE SEE COMMENT [facility] Comment on above: Performed By: #### I NFLUAB ####[facility] Slcfystqfe[address] [place] [address]Dr. Areli Yousif POINT OF CARE GLUCOSEon Glucose [Mass/Vol] 263 mg/dL Critically high 74-106 [facility] Comment on above: Performed By: #### P OCGLUC ####[facility] Chyiqtadll[address] [place], [place] [address]Dr. Areli Yousif PROF CHEM 8 (BAS METB)on Anion gap [Moles/Vol] 17.2 mmol/L Normal [facility] Comment on above: Performed By: #### B MP ####[facility] Qwlrguctdr[address] [place], [place] [address]Dr. Areli Yousif Calcium [Mass/Vol] 9.2 mg/dL Normal 8.5-10.1 [facility] Comment on above: Performed By: #### B MP ####[facility] L[address]ruamwah[address] [place] [address]Dr. Areli Yousif Chloride [Moles/Vol] 104 mmol/L Normal 98-107 [facility] Comment on above: Performed By: #### B MP ####[facility] Irxnmegcpp26[address] [place] [address]Dr. Areli Yousif CO2 [Moles/Vol] 19.1 mmol/L Critically low 21.0-32.0 [facility] Comment on above: Performed By: #### B MP ####[facility] Baoivffgbu[address] [place], [place] [address]Dr. Areli Yousif Creatinine [Mass/Vol] 1.29 mg/dL Normal 0.70-1.30 [facility] Comment on above: Performed By: #### B MP ####[facility] Kzupigtgnl[address] [place] [address]Dr. Areli Yousif EGFR-AF ICELANDIC >60 Normal >=60 [facility] Comment on above: Performed By: #### B MP ####[facility] Xjfjrprcnx6485 [place] [address]Dr. Areli Yousif EGFR-NON AF ICELANDIC 55 mL/min/1.73m2 Critically low >=60 [facility] Comment on above: Performed By: #### B MP ####[facility] Rhdhekhnvu84[address] [place] [address]Dr. Areli Yousif Glucose [Mass/Vol] 165 mg/dL Critically high 74-106 [facility] Comment on above: Performed By: #### B MP ####[facility] Y[address]arpyuvz8[address] [place], [place] [address]Dr. Tabbytulio Yousif Potassium [Moles/Vol] 4.3 mmol/L Normal 3.5-5.1 [facility] Comment on above: Performed By: #### B MP ####[facility] Xsnpxrsupo6[address] [place], [place] [address]Dr. Areli Yousif Sodium [Moles/Vol] 136 mmol/L Normal 136-145 [facility] Comment on above: Performed By: #### B MP ####[facility] Xjwrfmbjyl[address] [place], [place] [address]Dr. Areli Yousif Urea nitrogen [Mass/Vol] 43.0 mg/dL Critically high 7.0-18.0 [facility] Comment on above: Performed By: #### B MP ####[facility] Smlytxkfmn4[address] [place] [address]Dr. Areli Benja Urea nitrogen/Creatinine [Mass ratio] 33.3 mg/mg Normal [facility] Comment on above: Performed By: #### B MP ####[facility] Jbvkgoogrg97[address] [place], [place] [address]Dr. Areli Benja CBC AUTO DIFFon 10-06-2022 BASO # 0.0 103/ul Normal 0.0-0.1 [facility] Comment on above: Performed By: #### C BC ####[facility] Fnuvkprzoe36[address] [place] [address]Dr. Areli Yousif Basophils/100 WBC (Bld) 0.5 % Normal 0.2-2.0 [facility] Comment on above: Performed By: #### C BC ####[facility] Wleatktvxd4325 [place] [address]Dr. Areli Yousif EO # 0.2 103/ul Normal 0.0-0.7 [facility] Comment on above: Performed By: #### C BC ####[facility] Feozzbexma[address] [place], [place] [address]Dr. Areli Yousif Eosinophils/100 WBC (Bld) 2.8 % Normal 0.9-7.0 [facility] Comment on above: Performed By: #### C BC ####[facility] Tpsnmdxmmk24[address] [place], [place] [address]Dr. Areli Yousif Erythrocyte distribution width (RBC) [Ratio] 13.4 % Normal 11.0-15.0 [facility] Comment on above: Performed By: #### C BC ####[facility] Wrirvalefk[address] [place], [place] [address]Dr. Areli Yousif Hematocrit (Bld) [Volume fraction] 33.6 % Critically low 42.0-54.0 [facility] Comment on above: Performed By: #### C BC ####[facility] Tujkokogoj364[address] [place] [address]Dr. Areli Yousif Hemoglobin (Bld) [Mass/Vol] 11.2 g/dL Critically low 14.0-18.0 [facility] Comment on above: Performed By: #### C BC ####[facility] Iyzfickuei16[address] [place] [address]Dr. Areli Yousif IG # 0.04 10e3/ul Critically high 0.00-0.03 [facility] Comment on above: Performed By: #### C BC ####[facility] Ftumowptxs4272 [place] [address]Dr. Areli Yousif IG % 0.5 % Normal 0.0-0.5 [facility] Comment on above: Performed By: #### C BC ####[facility] Dkntihndiw5354 [place] [address]Dr. Areli Yousif LYMPH # 3.1 103/ul Normal 1.2-3.8 [facility] Comment on above: Performed By: #### C BC ####[facility] Dlxdjhaldh8821 [place] [address]Dr. Areli Benja Lymphocytes/100 WBC (Bld) 36.1 % Normal 20.5-60.0 [facility] Comment on above: Performed By: #### C BC ####[facility] Dhyvvtywqx7636 [place] [address]Dr. Tabbytulio Yousif MANUAL DIFF REQ NO Normal [facility] Comment on above: Performed By: #### C BC ####[facility] Rkfgvmcgiz7488 [place] [address]Dr. Areli Benja MCH (RBC) [Entitic mass] 29.2 pg Normal 25.9-34.0 [facility] Comment on above: Performed By: #### C BC ####[facility] Iopwrroyps3588 [place] [address]Dr. Areli Yousif MCHC (RBC) [Mass/Vol] 33.3 g/dL Normal 29.9-35.2 [facility] Comment on above: Performed By: #### C BC ####[facility] Iwitwzmbtz9282 [place] [address]Dr. Areli Benja MCV (RBC) [Entitic vol] 87.5 fL Normal 80.0-94.0 [facility] Comment on above: Performed By: #### C BC ####[facility] Hvblhzspmj33[address] [place] [address]Dr. Areli Benja MONO # 0.5 103/ul Normal 0.3-0.8 [facility] Comment on above: Performed By: #### C BC ####[facility] Bybotgyokf8541 [place] [address]Dr. Areli Benja Monocytes/100 WBC (Bld) 6.2 % Normal 1.7-12.0 [facility] Comment on above: Performed By: #### C BC ####[facility] Nfnoggnrqy0395 [place] [address]Dr. Areli Yousif NEUT # 4.6 103/ul Normal 1.4-6.5 [facility] Comment on above: Performed By: #### C BC ####[facility] Xkoaeyprwx8263 [place] [address]Dr. Areli Yousif Neutrophils/100 WBC (Bld) 53.9 % Normal 43.0-75.0 [facility] Comment on above: Performed By: #### C BC ####[facility] Sqjdlsjbxb6619 [place] [address]Dr. Areli Yousif Platelet mean volume (Bld) [Entitic vol] 10.6 fL Normal 9.5-13.5 [facility] Comment on above: Performed By: #### C BC ####[facility] Pxqdfeeosx7728 [place] [address]Dr. Areli Yousif PLT 314 103/ul Normal 150-450 [facility] Comment on above: Performed By: #### C BC ####[facility] Oqarrrjbps39[address] [place] [address]Dr. Areli Yousif RBC 3.84 106/ul Critically low 4.70-6.10 [facility] Comment on above: Performed By: #### C BC ####[facility] Yrywcjqcop8562 [place] [address]Dr. Areli Yousif WBC 8.6 103/ul Normal 4.0-11.0 [facility] Comment on above: Performed By: #### C BC ####[facility] Twwwrdhsdw6298 [place] [address]Dr. Areli Yousif POINT OF CARE GLUCOSEon -0 2-2022 Glucose [Mass/Vol] 249 mg/dL Critically high 74-106 [facility] Comment on above: Performed By: #### P OCGLUC ####[facility] Xnthrjuuvl7973 [place] [address]Dr. Areli Yousif Glucose [Mass/Vol] 443 mg/dL Critically high 74-106 [facility] Comment on above: Performed By: #### P OCGLUC ####[facility] Gjbkkddhsy2529 [place] [address]Dr. Areli Yousif Glucose [Mass/Vol] 311 mg/dL Critically high 74-106 [facility] Comment on above: Performed By: #### P OCGLUC ####[facility] Sexvipvgmx26[address] [place] [address]Dr. Areli Yousif Glucose [Mass/Vol] 241 mg/dL Critically high 74-106 [facility] Comment on above: Performed By: #### P OCGLUC ####[facility] Dyklawbbqk0489 [place] [address]Dr. Tabbytulio Yousif PROF CHEM 8 (BAS METB)on Anion gap [Moles/Vol] 15.2 mmol/L Normal [facility] Comment on above: Performed By: #### B MP ####[facility] Lahsqviheg[address] [place], [place] [address]Dr. Areli Yousif Calcium [Mass/Vol] 8.5 mg/dL Normal 8.5-10.1 [facility] Comment on above: Performed By: #### B MP ####[facility] Riozubchox[address] [place], [place] [address]Dr. Areli Yousif Chloride [Moles/Vol] 105 mmol/L Normal 98-107 [facility] Comment on above: Performed By: #### B MP ####[facility] Wgdajvmkpq[address] [place], [place] [address]Dr. Areli Yousif CO2 [Moles/Vol] 20.0 mmol/L Critically low 21.0-32.0 [facility] Comment on above: Performed By: #### B MP ####[facility] Gwyffgdxcd[address] [place], [place] [address]Dr. Tabbytulio Benja Creatinine [Mass/Vol] 1.32 mg/dL Critically high 0.70-1.30 [facility] Comment on above: Performed By: #### B MP ####[facility] Iztnzvkgfy9064[address] [place], [place] [address]Dr. Areli Yousif EGFR-AF ICELANDIC >60 Normal >=60 [facility] Comment on above: Performed By: #### B MP ####[facility] Gvamydmtgd04[address] [place] [address]Dr. Tabbytulio Benja EGFR-NON AF ICELANDIC 54 mL/min/1.73m2 Critically low >=60 [facility] Comment on above: Performed By: #### B MP ####[facility] Wpptufxpgf2246 [place] [address]Dr. Areli Yousif Glucose [Mass/Vol] 280 mg/dL Critically high 74-106 [facility] Comment on above: Performed By: #### B MP ####[facility] Zdsurvfgcn6480 [place] [address]Dr. Areli Yousif Potassium [Moles/Vol] 4.2 mmol/L Normal 3.5-5.1 [facility] Comment on above: Performed By: #### B MP ####[facility] M[address]hjwvvc02[address] [place], [place] [address]Dr. Areli Yousif Sodium [Moles/Vol] 136 mmol/L Normal 136-145 [facility] Comment on above: Performed By: #### B MP ####[facility] Xkbidsscin[address] [place], [place] [address]Dr. Areli Yousif Urea nitrogen [Mass/Vol] 37.0 mg/dL Critically high 7.0-18.0 [facility] Comment on above: Performed By: #### B MP ####[facility] Yaycnoomfi[address] [place], [place] [address]Dr. Areli Yousif Urea nitrogen/Creatinine [Mass ratio] 28.0 mg/mg Normal [facility] Comment on above: Performed By: #### B MP ####[facility] Kbvsmioeei40[address] [place], [place] [address]Dr. Areli Yousif CBC AUTO DIFFon 10-05-2022 BASO # 0.0 103/ul Normal 0.0-0.1 [facility] Comment on above: Performed By: #### C BC ####[facility] Rahdfsvzfd22[address] [place], [place] [address]Dr. Areli Yousif Basophils/100 WBC (Bld) 0.3 % Normal 0.2-2.0 [facility] Comment on above: Performed By: #### C BC ####[facility] Cvubkokpcj32[address] [place] [address]Dr. Areli Yousif EO # 0.2 103/ul Normal 0.0-0.7 [facility] Comment on above: Performed By: #### C BC ####[facility] Dwoovnigyx1634 [place] [address]Dr. Areli Yousif Eosinophils/100 WBC (Bld) 2.8 % Normal 0.9-7.0 [facility] Comment on above: Performed By: #### C BC ####[facility] Jhezlhndej13[address] [place], [place] [address]Dr. Areli Yousif Erythrocyte distribution width (RBC) [Ratio] 13.1 % Normal 11.0-15.0 [facility] Comment on above: Performed By: #### C BC ####[facility] Edbznfabwo6156[address] [place], [place] [address]Dr. Areli Yousif Hematocrit (Bld) [Volume fraction] 33.4 % Critically low 42.0-54.0 [facility] Comment on above: Performed By: #### C BC ####[facility] Yoyfborsig6[address] [place], [place] [address]Dr. Areli Yousif Hemoglobin (Bld) [Mass/Vol] 11.0 g/dL Critically low 14.0-18.0 [facility] Comment on above: Performed By: #### C BC ####[facility] Bltpnhxngh[address] [place], [place] [address]Dr. Areli Yousif IG # 0.03 10e3/ul Normal 0.00-0.03 [facility] Comment on above: Performed By: #### C BC ####[facility] Dbwmkpcttq[address] [place], [place] [address]Dr. Areli Yousif IG % 0.3 % Normal 0.0-0.5 [facility] Comment on above: Performed By: #### C BC ####[facility] Tgwawfxsao[address] [place], [place] [address]Dr. Tabbytulio Yousif LYMPH # 3.5 103/ul Normal 1.2-3.8 [facility] Comment on above: Performed By: #### C BC ####[facility] Kfvgimnhik9549 [place] [address]Dr. Areli Yousif Lymphocytes/100 WBC (Bld) 40.4 % Normal 20.5-60.0 [facility] Comment on above: Performed By: #### C BC ####[facility] Rzxnhlxagu9762 [place] [address]Dr. Areli Yousif MANUAL DIFF REQ NO Normal [facility] Comment on above: Performed By: #### C BC ####[facility] Pjptkkqulq3869 [place] [address]Dr. Areli Yousif MCH (RBC) [Entitic mass] 28.7 pg Normal 25.9-34.0 [facility] Comment on above: Performed By: #### C BC ####[facility] Ztznpypagy3512 [place] [address]Dr. Areli Yousif MCHC (RBC) [Mass/Vol] 32.9 g/dL Normal 29.9-35.2 [facility] Comment on above: Performed By: #### C BC ####[facility] [address]wks[address] [place], [place] [address]Dr. Areli Yousif MCV (RBC) [Entitic vol] 87.2 fL Normal 80.0-94.0 [facility] Comment on above: Performed By: #### C BC ####[facility] Ygezduwrgk7[address] [place], [place] [address]Dr. Areli Yousif MONO # 0.5 103/ul Normal 0.3-0.8 [facility] Comment on above: Performed By: #### C BC ####[facility] Ztguhklpoz4196 [place] [address]Dr. Areli Yousif Monocytes/100 WBC (Bld) 5.8 % Normal 1.7-12.0 [facility] Comment on above: Performed By: #### C BC ####[facility] Vaqixyktyl[address] [place], [place] [address]Dr. Areli Yousif NEUT # 4.3 103/ul Normal 1.4-6.5 [facility] Comment on above: Performed By: #### C BC ####[facility] Fcynykmfhu9806 [place] [address]Dr. Areli Yousif Neutrophils/100 WBC (Bld) 50.4 % Normal 43.0-75.0 [facility] Comment on above: Performed By: #### C BC ####[facility] Jlygaubugo8854 [place] [address]Dr. Areli Yousif Platelet mean volume (Bld) [Entitic vol] 10.5 fL Normal 9.5-13.5 [facility] Comment on above: Performed By: #### C BC ####[facility] Ptvmfsmkih6636 [place] [address]Dr. Areli Yousif PLT 320 103/ul Normal 150-450 [facility] Comment on above: Performed By: #### C BC ####[facility] Vtuxnogtrf1968 [place] [address]Dr. Areli Yousif RBC 3.83 106/ul Critically low 4.70-6.10 [facility] Comment on above: Performed By: #### C BC ####[facility] Gzvfozcogv3996 [place] [address]Dr. Areli Yousif WBC 8.6 103/ul Normal 4.0-11.0 [facility] Comment on above: Performed By: #### C BC ####[facility] Jjoxakyvjd5258 [place] [address]Dr. Areli Yousif CULTURE URINEon 10-05-2022 CULTURE URINE Normal [facility] Comment on above: Performed By: #### U RCX ####[facility] Uynyimfpjx1371 [place] [address]Dr. Areli Yousif POINT OF CARE GLUCOSEon -0 Glucose [Mass/Vol] 266 mg/dL Critically high 74-106 [facility] Comment on above: Performed By: #### P OCGLUC ####[facility] Ujihiiybwh9277 [place] [address]Dr. Areli Yousif Glucose [Mass/Vol] 320 mg/dL Critically high 74-106 [facility] Comment on above: Performed By: #### P OCGLUC ####[facility] Fhafedpquw4127 [place] [address]Dr. Areli Yousif Glucose [Mass/Vol] 282 mg/dL Critically high 74-106 [facility] Comment on above: Performed By: #### P OCGLUC ####[facility] Mcxzlmcwyz9995 [place] [address]Dr. Areli Yousif PROF CHEM 8 (BAS METB)on Anion gap [Moles/Vol] 16.2 mmol/L Normal [facility] Comment on above: Performed By: #### B MP ####[facility] Jajhekebjm8[address] [place], [place] [address]Dr. Areli Yousif Calcium [Mass/Vol] 8.7 mg/dL Normal 8.5-10.1 [facility] Comment on above: Performed By: #### B MP ####[facility] Gmitxgchct[address] [place], [place] [address]Dr. Areli Yousif Chloride [Moles/Vol] 105 mmol/L Normal 98-107 [facility] Comment on above: Performed By: #### B MP ####[facility] Wiiusjnoia3723[address] [place], [place] [address]Dr. Areli Yousif CO2 [Moles/Vol] 19.1 mmol/L Critically low 21.0-32.0 [facility] Comment on above: Performed By: #### B MP ####[facility] Rmofmgjnvh65[address] [place], [place] [address]Dr. Areli Yousif Creatinine [Mass/Vol] 0.96 mg/dL Normal 0.70-1.30 [facility] Comment on above: Performed By: #### B MP ####[facility] Aollaoecxv7[address] [place], [place] [address]Dr. Areli Yousif EGFR-AF ICELANDIC >60 Normal >=60 [facility] Comment on above: Performed By: #### B MP ####[facility] Tihgtcnyuf[address] [place], [place] [address]Dr. Areli Yousif EGFR-NON AF ICELANDIC >60 Normal >=60 [facility] Comment on above: Performed By: #### B MP ####[facility] Laenruolch[address] [place] [address]Dr. Areli Benja Glucose [Mass/Vol] 139 mg/dL Critically high 74-106 [facility] Comment on above: Performed By: #### B MP ####[facility] Hotgxhpyhk45[address] [place] [address]Dr. Areli Yousif Potassium [Moles/Vol] 4.3 mmol/L Normal 3.5-5.1 [facility] Comment on above: Performed By: #### B MP ####[facility] Vzemhhdfkh65[address] [place], [place] [address]Dr. Areli Yousif Sodium [Moles/Vol] 136 mmol/L Normal 136-145 [facility] Comment on above: Performed By: #### B MP ####[facility] Nbfsppvjva[address] [place], [place] [address]Dr. Areli Yousif Urea nitrogen [Mass/Vol] 26.0 mg/dL Critically high 7.0-18.0 [facility] Comment on above: Performed By: #### B MP ####[facility] Uenhmixvgl5[address] [place], [place] [address]Dr. Areli Yousif Urea nitrogen/Creatinine [Mass ratio] 27.1 mg/mg Normal [facility] Comment on above: Performed By: #### B MP ####[facility] Wdiscmnmfe59[address] [place], [place] [address]Dr. Areli Yousif CBC AUTO DIFFon 10-04-2022 BASO # 0.1 103/ul Normal 0.0-0.1 [facility] Comment on above: Performed By: #### C BC ####[facility] Qfggbqflqm[address] [place], [place] [address]Dr. Areli Yousif Basophils/100 WBC (Bld) 0.5 % Normal 0.2-2.0 [facility] Comment on above: Performed By: #### C BC ####[facility] Vhhizvkpyb68[address] [place], [place] [address]Dr. Areli Yousif EO # 0.3 103/ul Normal 0.0-0.7 [facility] Comment on above: Performed By: #### C BC ####[facility] Guludegyoy2133 [place] [address]Dr. Areli Yousif Eosinophils/100 WBC (Bld) 3.1 % Normal 0.9-7.0 [facility] Comment on above: Performed By: #### C BC ####[facility] Kthyppwibe1641 [place] [address]Dr. Areli Yousif Erythrocyte distribution width (RBC) [Ratio] 13.2 % Normal 11.0-15.0 [facility] Comment on above: Performed By: #### C BC ####[facility] Ixhkqkqnmk0132 [place] [address]Dr. Areli Yousif Hematocrit (Bld) [Volume fraction] 32.0 % Critically low 42.0-54.0 [facility] Comment on above: Performed By: #### C BC ####[facility] Lxxhuijmux23[address] [place], [place] [address]Dr. Areli Yousif Hemoglobin (Bld) [Mass/Vol] 10.7 g/dL Critically low 14.0-18.0 [facility] Comment on above: Performed By: #### C BC ####[facility] Exnespksvc8[address] [place], [place] [address]Dr. Areli Yousif IG # 0.04 10e3/ul Critically high 0.00-0.03 [facility] Comment on above: Performed By: #### C BC ####[facility] Sckujdptjw2883 [place] [address]Dr. Areli Yousif IG % 0.4 % Normal 0.0-0.5 [facility] Comment on above: Performed By: #### C BC ####[facility] Ckirohrrqa75[address] [place], [place] [address]Dr. Areli Yousif LYMPH # 3.6 103/ul Normal 1.2-3.8 [facility] Comment on above: Performed By: #### C BC ####[facility] Kzkruvddti70[address] [place], [place] [address]Dr. Areli Yousif Lymphocytes/100 WBC (Bld) 33.7 % Normal 20.5-60.0 [facility] Comment on above: Performed By: #### C BC ####[facility] Sofbleznqk0190 [place] [address]Dr. Areli Yousif MANUAL DIFF REQ NO Normal [facility] Comment on above: Performed By: #### C BC ####[facility] Ciulgkpqag4529 [place] [address]Dr. Areli Yousif MCH (RBC) [Entitic mass] 29.2 pg Normal 25.9-34.0 [facility] Comment on above: Performed By: #### C BC ####[facility] Htwzdrqagl0588 [place] [address]Dr. Areli Yousif MCHC (RBC) [Mass/Vol] 33.4 g/dL Normal 29.9-35.2 [facility] Comment on above: Performed By: #### C BC ####[facility] Kyqlimzoqc33[address] [place], [place] [address]Dr. Areli Yousif MCV (RBC) [Entitic vol] 87.2 fL Normal 80.0-94.0 [facility] Comment on above: Performed By: #### C BC ####[facility] Mprphbpide[address] [place], [place] [address]Dr. Areli Yousif MONO # 0.6 103/ul Normal 0.3-0.8 [facility] Comment on above: Performed By: #### C BC ####[facility] Hkxnnvbuvc83[address] [place], [place] [address]Dr. Areli Yousif Monocytes/100 WBC (Bld) 6.0 % Normal 1.7-12.0 [facility] Comment on above: Performed By: #### C BC ####[facility] Nlxwslgjqt8[address] [place], [place] [address]Dr. Areli Yousif NEUT # 6.0 103/ul Normal 1.4-6.5 [facility] Comment on above: Performed By: #### C BC ####[facility] Hbeewhmapp[address] [place], [place] [address]Dr. Areli Yousif Neutrophils/100 WBC (Bld) 56.3 % Normal 43.0-75.0 [facility] Comment on above: Performed By: #### C BC ####[facility] Yffibmyfje9623 [place] [address]Dr. Areli Yousif Platelet mean volume (Bld) [Entitic vol] 10.4 fL Normal 9.5-13.5 [facility] Comment on above: Performed By: #### C BC ####[facility] Fmxgashsaw5860 [place] [address]Dr. Areli Yousif PLT 306 103/ul Normal 150-450 [facility] Comment on above: Performed By: #### C BC ####[facility] Hrbxanpwxb4833 [place] [address]Dr. Areli Yousif RBC 3.67 106/ul Critically low 4.70-6.10 [facility] Comment on above: Performed By: #### C BC ####[facility] Wxjtvsegze8548 [place] [address]Dr. Areli Yousif WBC 10.6 103/ul Normal 4.0-11.0 [facility] Comment on above: Performed By: #### C BC ####[facility] Rjxkzpbpuu3719 [place] [address]Dr. Areli Yousif FREE T3on 10-04-2022 FREE T3 1.74 pg/mlL Critically low 2.18-3.98 [facility] Comment on above: Performed By: #### F T3, TSH ####[facility] Nmuygzrqxo37[address] [place] [address]Dr. Areli Yousif FREE T4on 10-04-2022 Free T4 [Mass/Vol] 1.25 ng/dL Normal 0.76-1.46 [facility] Comment on above: Performed By: #### V ITAD, FT4, B12FOL, FETIBC ####[facility] Izsbqgwtoh7634 [place] [address]Dr. Areli Yousif GLYCOHEMOGLOBIN A1Con 2021 ADA RECOMMENDATION SEE BELOW Normal [facility] Comment on above: Result Comment: ADA RECOMMENDED LIMIT 4.0 - 6.0 ADA THERAPEUTIC TARGET < 7.0 ACTION SUGGESTED > 7.0 Performed By: #### A 1C ####[facility] Zkbgihtykc17[address] [place] [address]Dr. Areli Yousif Glucose [Mass/Vol] 212 mg/dL Normal [facility] Comment on above: Performed By: #### A 1C ####[facility] [address] [place] [address]Dr. Areli Yousif HbA1c (Bld) [Mass fraction] 9.0 % Critically high 4.5-6.2 [facility] Comment on above: Performed By: #### A 1C ####[facility] [address] [place] [address]Dr. Areli Yousif IRON AND TIBCon 10-04-2022 % SATURATION 24.1 % Normal [facility] Comment on above: Performed By: #### V ITAD, FT4, B12FOL, FETIBC ####[facility] [address] [place], [place] [address]Dr. Areli Yousif Iron [Mass/Vol] 47.0 ug/dL Critically low 65.0-175.0 [facility] Comment on above: Performed By: #### V ITAD, FT4, B12FOL, FETIBC ####[facility] B[address]dczyco[address] [place], [place] [address]Dr. Areli Yousif TIBC DIRECT 195.0 ug/dL Critically low 250.0-450.0 [facility] Comment on above: Performed By: #### V ITAD, FT4, B12FOL, FETIBC ####[facility] [address] [place], [place] [address]Dr. Areli Yousif LACTATE/LACTIC ACIDon 2021 Lactate [Moles/Vol] 0.9 mmol/L Normal 0.4-1.9 [facility] Comment on above: Performed By: #### L ACT ####[facility] Egnycggkar[address] [place], [place] [address]Dr. Areli Yousif POINT OF CARE GLUCOSEon -3 Glucose [Mass/Vol] 215 mg/dL Critically high 74-106 [facility] Comment on above: Performed By: #### P OCGLUC ####[facility] [address] [place] [address]Dr. Areli Yousif Glucose [Mass/Vol] 204 mg/dL Critically high 74-106 [facility] Comment on above: Performed By: #### P OCGLUC ####[facility] [address]jc[address] [place] [address]Dr. Areli Yousif Glucose [Mass/Vol] 235 mg/dL Critically high 74-106 [facility] Comment on above: Performed By: #### P OCGLUC ####[facility] [address]woob[address] [place] [address]Dr. Areli Yousif PROF CHEM 8 (BAS METB)on Anion gap [Moles/Vol] 15.2 mmol/L Normal [facility] Comment on above: Performed By: #### B MP ####[facility] V[address]xufih[address] [place], [place] [address]Dr. Areli Yousif Calcium [Mass/Vol] 8.8 mg/dL Normal 8.5-10.1 [facility] Comment on above: Performed By: #### B MP ####[facility] [address]ircqdqgw[address] [place], [place] [address]Dr. Areli Yousif Chloride [Moles/Vol] 104 mmol/L Normal 98-107 [facility] Comment on above: Performed By: #### B MP ####[facility] L[address]himwkqwp[address] [place], [place] [address]Dr. Areli Yousif CO2 [Moles/Vol] 20.1 mmol/L Critically low 21.0-32.0 [facility] Comment on above: Performed By: #### B MP ####[facility] N[address]ostwmlr[address] [place], [place] [address]Dr. Tabbytulio Benja Creatinine [Mass/Vol] 0.96 mg/dL Normal 0.70-1.30 [facility] Comment on above: Performed By: #### B MP ####[facility] [address]feorsyi[address] [place] [address]Dr. Tabbytulio Benja EGFR-AF ICELANDIC >60 Normal >=60 [facility] Comment on above: Performed By: #### B MP ####[facility] [address] [place] [address]Dr. Areli Yousif EGFR-NON AF ICELANDIC >60 Normal >=60 [facility] Comment on above: Performed By: #### B MP ####[facility] [address]spj[address] [place] [address]Dr. Areli Yousif Glucose [Mass/Vol] 129 mg/dL Critically high 74-106 [facility] Comment on above: Performed By: #### B MP ####[facility] Xhpoxajzve[address] [place], [place] [address]Dr. Areli Yousif Potassium [Moles/Vol] 4.3 mmol/L Normal 3.5-5.1 [facility] Comment on above: Performed By: #### B MP ####[facility] Knvhqvtgdn4[address] [place], [place] [address]Dr. Areli Yousif Sodium [Moles/Vol] 135 mmol/L Critically low 136-145 [facility] Comment on above: Performed By: #### B MP ####[facility] Eyviarnbgq[address] [place], [place] [address]Dr. Areli Yousif Urea nitrogen [Mass/Vol] 29.0 mg/dL Critically high 7.0-18.0 [facility] Comment on above: Performed By: #### B MP ####[facility] Tevjysvejs[address] [place], [place] [address]Dr. Areli Yousif Urea nitrogen/Creatinine [Mass ratio] 30.2 mg/mg Normal [facility] Comment on above: Performed By: #### B MP ####[facility] Bmqlbovbut[address] [place], [place] [address]Dr. Areli Benja TSHon 10-04-2022 TSH 3.433 uIU/mL Normal 0.358-3.740 [facility] Comment on above: Performed By: #### F T3, TSH ####[facility] [address]feyuikde[address] [place], [place] [address]Dr. Areli Yousif VIT B12 AND FOLATEon 022 Cobalamin (Vitamin B12) [Mass/Vol] 263.0 pg/mL Normal 193.0-986.0 [facility] Comment on above: Performed By: #### V ITAD, FT4, B12FOL, FETIBC ####[facility] [address] [place] [address]Dr. Areli Yousif FOLATE 21.40 ng/mL Normal 8.60-58.90 [facility] Comment on above: Performed By: #### V ITAD, FT4, B12FOL, FETIBC ####[facility] [address]px[address] [place] [address]Dr. Areli Yousif VITAMIN D 25 OHon 10-04-2022 VIT D 25-OH 41.6 ng/mL Normal [facility] Comment on above: Performed By: #### V ITAD, FT4, B12FOL, FETIBC ####[facility] [address] [place] [address]Dr. Areli Yousif VIT D RANGES SEE BELOW Normal [facility] Comment on above: Result Comment: <20 ng/mL Vit D deficient 20 - <30 ng/mL Vit D insufficient 30 - 100 ng/mL Vit D sufficient >100 ng/mL Potential Toxicity Performed By: #### V ITAD, FT4, B12FOL, FETIBC ####[facility] Onflqsogwy[address] [place] [address]Dr. Areli Yousif CARDIAC ASHLEY ADMITon 022 CK [Catalytic activity/Vol] 49 U/L Normal 39-308 [facility] Comment on above: Performed By: #### Reed GAMBOA, CMP ####[facility] [address]pq[address] [place] [address]Dr. Areli Yousif CK.MB [Mass/Vol] 1.02 ng/mL Normal <=3.60 [facility] Comment on above: Performed By: #### Reed GAMBOA, CMP ####[facility] U[address]ysv[address] [place] [address]Dr. Areli Yousif HSTROP 12.8 pg/mL Normal 4.0-76.1 [facility] Comment on above: Result Comment: CUT- OFF POINTS HAVE BEEN ESTABLISHED BASED ON THE FOURTH UNIVERSAL DEFINITIONS OF MYOCARDIALINFARCTION. THE UPPER REFERENCE LIMIT (URL) OF TROPONIN, DEFINED THE 99TH PERCENTILE OFcTnI DISTRIBUTION IN A REFERENCE POPULATION, HAS BEEN CONFIRMED THE DECISION THRESHOLDFOR NE DIAGNOSIS. Performed By: #### C BEE, CMP ####[facility] [address] [place] [address]Dr. Areli Yousif LAWRENCE 75 ng/mL Normal 16-96 [facility] Comment on above: Performed By: #### C BEE, CMP ####[facility] [address]af[address] [place] [address]Dr. Areli Benja CBC AUTO DIFFon 10-03-2022 BASO # 0.0 103/ul Normal 0.0-0.1 [facility] Comment on above: Performed By: #### C BC ####[facility] Uyixwxiogs[address] [place], [place] [address]Dr. Tabbytulio Yousif Basophils/100 WBC (Bld) 0.4 % Normal 0.2-2.0 [facility] Comment on above: Performed By: #### C BC ####[facility] U[address]is[address]jv[address] [place], [place] [address]Dr. Areli Yousif EO # 0.4 103/ul Normal 0.0-0.7 [facility] Comment on above: Performed By: #### C BC ####[facility] Inbeugialw[address] [place], [place] [address]Dr. Areli Yousif Eosinophils/100 WBC (Bld) 3.7 % Normal 0.9-7.0 [facility] Comment on above: Performed By: #### C BC ####[facility] [address]xrcbdyzi[address] [place], [place] [address]Dr. Areli Yousif Erythrocyte distribution width (RBC) [Ratio] 13.5 % Normal 11.0-15.0 [facility] Comment on above: Performed By: #### C BC ####[facility] Etyfwelgaj[address] [place], [place] [address]Dr. Areli Yousif Hematocrit (Bld) [Volume fraction] 33.7 % Critically low 42.0-54.0 [facility] Comment on above: Performed By: #### C BC ####[facility] [address]vo[address] [place] [address]Dr. Areli Yousif Hemoglobin (Bld) [Mass/Vol] 11.2 g/dL Critically low 14.0-18.0 [facility] Comment on above: Performed By: #### C BC ####[facility] [address]xi[address]ud[address] [place] [address]Dr. Areli Yousif IG # 0.04 10e3/ul Critically high 0.00-0.03 [facility] Comment on above: Performed By: #### C BC ####[facility] [address]juut[address] [place] [address]Dr. Areli Yousif IG % 0.4 % Normal 0.0-0.5 [facility] Comment on above: Performed By: #### C BC ####[facility] [address]ze[address] [place] [address]Dr. Areli Yousif LYMPH # 2.9 103/ul Normal 1.2-3.8 [facility] Comment on above: Performed By: #### C BC ####[facility] [address]oredsj[address] [place] [address]Dr. Areli Yousif Lymphocytes/100 WBC (Bld) 29.5 % Normal 20.5-60.0 [facility] Comment on above: Performed By: #### C BC ####[facility] E[address]wg[address] [place] [address]Dr. Areli Yousif MANUAL DIFF REQ NO Normal [facility] Comment on above: Performed By: #### C BC ####[facility] T[address]fe[address] [place] [address]Dr. Areli Yousif MCH (RBC) [Entitic mass] 29.8 pg Normal 25.9-34.0 [facility] Comment on above: Performed By: #### C BC ####[facility] [address] [place], [place] [address]Dr. Areli Yousif MCHC (RBC) [Mass/Vol] 33.2 g/dL Normal 29.9-35.2 [facility] Comment on above: Performed By: #### C BC ####[facility] [address] [place] [address]Dr. Areli Yousif MCV (RBC) [Entitic vol] 89.6 fL Normal 80.0-94.0 [facility] Comment on above: Performed By: #### C BC ####[facility] [address]eskydp[address] [place] [address]Dr. Areli Yousif MONO # 0.6 103/ul Normal 0.3-0.8 [facility] Comment on above: Performed By: #### C BC ####[facility] Flaqneiskq[address] [place] [address]Dr. Areli Yousif Monocytes/100 WBC (Bld) 6.0 % Normal 1.7-12.0 [facility] Comment on above: Performed By: #### C BC ####[facility] [address]ts[address]ft[address] [place] [address]Dr. Areli Yousif NEUT # 5.9 103/ul Normal 1.4-6.5 [facility] Comment on above: Performed By: #### C BC ####[facility] [address] [place], [place] [address]Dr. Areli Yousif Neutrophils/100 WBC (Bld) 60.0 % Normal 43.0-75.0 [facility] Comment on above: Performed By: #### C BC ####[facility] Gbmjmuoziz[address] [place] [address]Dr. Areli Yousif Platelet mean volume (Bld) [Entitic vol] 11.2 fL Normal 9.5-13.5 [facility] Comment on above: Performed By: #### C BC ####[facility] [address]ks[address] [place] [address]Dr. Areli Yousif PLT 270 103/ul Normal 150-450 [facility] Comment on above: Performed By: #### C BC ####[facility] Hdedgzuhda[address] [place] [address]Dr. Areli Yousif RBC 3.76 106/ul Critically low 4.70-6.10 [facility] Comment on above: Performed By: #### C BC ####[facility] Uycffrpiiz[address] [place] [address]Dr. Areli Yousif WBC 9.9 103/ul Normal 4.0-11.0 [facility] Comment on above: Performed By: #### C BC ####[facility] [address] [place] [address]Dr. Areli Yousif CULTURE BLOODon 10-03-2022 Microscopic examination of blood, culture Culture Observations: NO GROWTH AT 5 DAYS. Normal [facility] Comment on above: Performed By: #### B LDCX2 ####[facility] [address] [place], [place] [address]Xf. Areli Yousif Performed By: #### B LDCX1 ####[facility] [address]clz[address] [place] [address]Dr. Areli Yousif Coding Summaryon 10-03-2022 Coding Summary Normal [facility] Covid-19 PCR (CVDTBH)on 09-06 SARS-CoV-2 (COVID-19) RNA MANSI+probe Ql (Unsp spec) Not detected Normal NOT DETECTED [facility] Comment on above: Result Comment: When diagnostic testing is negative, the possibility of a false negative should be considered inthe context of a patient's recent exposures and the presence of clinical signs and symptomsconsistent with SARS-CoV-2.This test is not yet approved or cleared by the [place] FDA. When there are no FDA-approved or cleared tests available, and other criteria are met, FDA can make tests available under an emergency access mechanism called an Emergency Use Authorization (EUA). The EUA for this test is supported by the Dsp Engineer of Health and Human Service's declaration that circumstances exist to justify the emergency use of in vitro diagnostics for the detection and/or diagnosis of the virus that causes COVID-19. This EUA will remain in effect for the duration of the COVID-19 declaration justifying emergency of IVDs, unless it is terminated or revoked by the FDA (after which the test may no longer be used). Performed By: #### C VDTBH ####[facility] [address]fe[address] [place] [address]Dr. Areli Yousif ER URINE PROFILEon Bilirubin Ql (U) Negative Normal NEGATIVE [facility] Comment on above: Performed By: #### Sid BARKER UMICRO ####[facility] Utuysdsffz[address] [place] [address]Dr. Areli Yousif Clarity (U) CLEAR Normal CLEAR [facility] Comment on above: Performed By: #### Sid BARKER UMICRO ####[facility] Qgielrnysn[address] [place] [address]Dr. Areli Yousif Color (U) LT. YELLOW Normal YELLOW [facility] Comment on above: Performed By: #### Sid BARKER UMICRO ####[facility] Xfttwdslhc[address] [place] [address]Dr. Areli ARIASD A micrscopic examination will be performed if indicated. Normal [facility] Comment on above: Performed By: #### Sid BARKER UMICRO ####[facility] Xtkxy[address] [place], [place] [address]Dr. Areli Yousif Glucose Ql (U) 100 mg/dl Abnormal NEGATIVE [facility] Comment on above: Performed By: #### Sid BARKER UMICRO ####[facility] W[address]femrxdyw4[address] [place], [place] [address]Dr. Areli Yousif Hemoglobin Ql (U) SMALL Abnormal NEGATIVE [facility] Comment on above: Performed By: #### Sid BARKER UMICRO ####[facility] V[address]ijxxy[address] [place] [address]Dr. Areli Yousif Ketones Ql (U) Negative Normal NEGATIVE [facility] Comment on above: Performed By: #### Sid BARKER UMICRO ####[facility] Eqhxigwanw[address] [place] [address]Dr. Areli Yousif LEUKOCYTES MODERATE Abnormal NEGATIVE [facility] Comment on above: Performed By: #### Sid BARKER UMICRO ####[facility] Shcxvabfcv17[address] [place] [address]Dr. Areli Yousif Nitrite Ql (U) Positive Abnormal NEGATIVE [facility] Comment on above: Performed By: #### Sid BARKER UMICRO ####[facility] Uyyjcauolb[address] [place] [address]Dr. Areli Yousif pH (U) 5.5 [pH] Normal 5-9 [facility] Comment on above: Performed By: #### JOURDAN RIVERA ####[facility] Wehocveypp[address] [place] [address]Dr. Areli Yousif Protein (U) [Mass/Vol] 100 mg/dL Abnormal NEGAT TIMOTHY/ TRACE [facility] Comment on above: Performed By: #### JOURDAN RIVERA ####[facility] F[address]wo[address]klb[address] [place] [address]Dr. Areli Yousif SPEC GRAVITY 1.020 Normal 1.005-<=1.02 5 [facility] Comment on above: Performed By: #### JOURDAN RIVERA ####[facility] Sxfkgmwbws[address] [place] [address]Dr. Areli Yousif UR MICRO IND INDICATED Normal [facility] Comment on above: Performed By: #### JOURDAN RIVERA ####[facility] Mcrbnahewb40[address] [place] [address]Dr. Areli Yousif Urobilinogen Qn (U) 0.2 {Alyssia'U}/dL Normal 0.2 - 1. 0 [facility] Comment on above: Performed By: #### JOURDAN RIVERA ####[facility] K[address]weibxjz6[address] [place] [address]Dr. Areli Yousif LACTATE/LACTIC ACIDon 2021 Lactate [Moles/Vol] 2.2 mmol/L Critically high 0.4-1.9 [facility] Comment on above: Performed By: #### L ACT ####[facility] [address]slqd[address] [place], [place] [address]Dr. Areli Yousif Outside Recordson 10-03-2022 Outside Records [id number]#1.0 0OTGTIFF Normal [facility] Outside Records [id number] 0OTGTIFF [facility] POINT OF CARE GLUCOSEon 09-06 Glucose [Mass/Vol] 280 mg/dL Critically high 74-106 [facility] Comment on above: Performed By: #### P OCGLUC ####[facility] Ucfqcnqdje[address] [place] [address]Dr. Areli Yousif Glucose [Mass/Vol] 246 mg/dL Critically high 74-106 [facility] Comment on above: Performed By: #### P OCGLUC ####[facility] Alwal[address]rdjq[address] [place] [address]Dr. Areli Yousif PROF 14(COMP METB)on 022 Albumin [Mass/Vol] 2.9 g/dL Critically low 3.4-5.0 [facility] Comment on above: Performed By: #### C EBE, CMP ####[facility] Dhdlgjxicq22[address] [place] [address]Dr. Areli Yousif Albumin/Globulin [Mass ratio] 0.8 {ratio} Normal [facility] Comment on above: Performed By: #### C BEE, CMP ####[facility] Wejhdufcti[address] [place] [address]Dr. Areli Yousif ALP [Catalytic activity/Vol] 77 U/L Normal 46-116 [facility] Comment on above: Performed By: #### C BEE, CMP ####[facility] Kdnwrkjsvy33[address] [place] [address]Dr. Areli Yousif ALT [Catalytic activity/Vol] 11 U/L Critically low 16-63 [facility] Comment on above: Performed By: #### C BEE, CMP ####[facility] Ffssontqzd67[address] [place] [address]Dr. Areli Yousif Anion gap [Moles/Vol] 16.3 mmol/L Normal [facility] Comment on above: Performed By: #### C BEE, CMP ####[facility] Pwdwtxjvav1915 [place] [address]Dr. Areli Yousif AST [Catalytic activity/Vol] 13 U/L Critically low 15-37 [facility] Comment on above: Performed By: #### C BEE, CMP ####[facility] Bbrajdbobs[address] [place] [address]Dr. Areli Yousif Bilirubin [Mass/Vol] 0.2 mg/dL Normal 0.2-1.0 [facility] Comment on above: Performed By: #### C MADM, CMP ####[facility] [address]ec[address]ci[address] [place] [address]Dr. Areli Yousif Calcium [Mass/Vol] 9.0 mg/dL Normal 8.5-10.1 [facility] Comment on above: Performed By: #### C BEE, CMP ####[facility] Gghdoqtkoc9021 [place] [address]Dr. Areli Yousif Chloride [Moles/Vol] 103 mmol/L Normal 98-107 [facility] Comment on above: Performed By: #### C BEE, CMP ####[facility] [address]krkrrcpg[address] [place], [place] [address]Dr. Areli Yousif CO2 [Moles/Vol] 20.9 mmol/L Critically low 21.0-32.0 [facility] Comment on above: Performed By: #### C BEE, CMP ####[facility] Awrdlpnazn62[address] [place] [address]Dr. Areli Yousif Creatinine [Mass/Vol] 1.29 mg/dL Normal 0.70-1.30 [facility] Comment on above: Performed By: #### C BEE, CMP ####[facility] Kxggybbotn04[address] [place] [address]Dr. Areli Yousif EGFR-AF ICELANDIC >67 Normal >=60 [facility] Comment on above: Performed By: #### C BEE, CMP ####[facility] Upzculdykj15[address] [place] [address]Dr. Areli Yousif EGFR-NON AF ICELANDIC 55 mL/min/1.73m2 Critically low >=60 [facility] Comment on above: Performed By: #### C SANDRAM, CMP ####[facility] Ukxrplolys64[address] [place] [address]Dr. Areli Yousif Globulin (S) [Mass/Vol] 3.7 g/dL Normal [facility] Comment on above: Performed By: #### C BEE, CMP ####[facility] Qncoqqreqm4056 [place] [address]Dr. Areli Yousif Glucose [Mass/Vol] 245 mg/dL Critically high 74-106 T [facility] Comment on above: Performed By: #### C BEE, CMP ####[facility] Sauaibinzx0439 [place] [address]Dr. Areli Yousif Potassium [Moles/Vol] 5.2 mmol/L Critically high 3.5-5.1 [facility] Comment on above: Performed By: #### C BEE, CMP ####[facility] M[address]fnnmtmd[address] [place], [place] [address]Dr. Areli Yousif Protein [Mass/Vol] 6.6 g/dL Normal 6.4-8.2 [facility] Comment on above: Performed By: #### Reed GAMBOA, CMP ####[facility] Ypmkjhbjvq[address] [place], [place] [address]Dr. Areli Yousif Sodium [Moles/Vol] 135 mmol/L Critically low 136-145 [facility] Comment on above: Performed By: #### C BEE, CMP ####[facility] [address]bboyhzbuv[address] [place], [place] [address]Dr. Areli Yousif Urea nitrogen [Mass/Vol] 43.0 mg/dL Critically high 7.0-18.0 [facility] Comment on above: Performed By: #### Reed GAMBOA, CMP ####[facility] Isfvrbgyxs[address] [place], [place] [address]Dr. Areli Yousif Urea nitrogen/Creatinine [Mass ratio] 33.3 mg/mg Normal [facility] Comment on above: Performed By: #### Reed GAMBOA, CMP ####[facility] [address]azbdqaht10[address] [place] [address]Dr. Areli Benja PROTIMEon 10-03-2022 INR Coag (PPP) [Relative time] 1.06 {INR} Normal [facility] Comment on above: Performed By: #### P T, PTT ####[facility] S[address]vlahyvf[address] [place], [place] [address]Dr. Areli Yousif INR GUIDELINES SEE BELOW Normal [facility] Comment on above: Result Comment: LANDON RED INR: 2.0 - 3.0 CONDITIONS NOT LISTED BELOW 2.5 - 3.5 FOR PROSTHETIC HEART VALVE REPLACEMENT 2.5 - 3.5 RECURRENT THROMBOSIS Performed By: #### P T, PTT ####[facility] [address] [place], [place] [address]Dr. Areli Yousif PT Coag (PPP) [Time] 11.4 s Normal 9.0-11.6 [facility] Comment on above: Performed By: #### P T, PTT ####[facility] [address]uzuwbzbbg[address] [place], [place] [address]Dr. Areli Yousif PTTon 10-03-2022 aPTT Coag (Bld) [Time] 25.6 s Normal 22.3-36.2 [facility] Comment on above: Performed By: #### P T, PTT ####[facility] [address]wxdtuek[address] [place], [place] [address]Dr. Areli Yousif Provider Orderson 10-03-2022 Provider Orders [id number] 0OTGTIFF Normal [facility] URINE MICROSCOPIC ONLYon BACTERIA LARGE Abnormal NONE SEEN [facility] Comment on above: Performed By: #### JOURDAN RIVERA ####[facility] Fpiaulfjeo[address] [place], [place] [address]DrDenae Yousif Bacteria identified Cx Nom (U) INDICATED Normal [facility] Comment on above: Performed By: #### DWIGHT RIVERARO ####[facility] Oqrroflkml[address] [place], [place] [address]DrDenae Yousif CAST NONE SEEN Normal NONE SEEN [facility] Comment on above: Performed By: #### JOURDAN RIVERA ####[facility] Ordjolqywn[address] [place], [place] [address]DrDenae Yousif Crystals LM Nom (Urine sed) NONE SEEN Normal NONE SEEN [facility] Comment on above: Performed By: #### JOURDAN RIVERA ####[facility] Pgqxfdplse4172 [place], [place] [address]Ey. Areli Yousif Epithelial cells LM Ql (Urine sed) FEW Abnormal NONE SEEN /RARE [facility] Comment on above: Performed By: #### JOURDAN RIVERA ####[facility] Agxheaklwb8708 [place], [place] [address]St. Tabbytulio Benja MUCOUS TRACE Abnormal NONE SEEN [facility] Comment on above: Performed By: #### JOURDAN RIVERA ####[facility] Unxfeqsgdd6362 [place], [place] [address]Ek. Areli Yousif RBC 10-20 Abnormal 0-2 [facility] Comment on above: Performed By: #### JOURDAN RIVERA ####[facility] Wglegssclw2748 [place], [place] [address]Lc. Areli Yousif WBC 20-50 Abnormal NONE SEEN [facility] Comment on above: Performed By: #### JOURDAN RIVERA ####[facility] [address] [place] [id number]. Areli Yousif XR CHEST 1 Von 10-03-2022 XR CHEST 1 V Normal [facility] XR HUMERUS RT MIN 2 Von 09-06 XR HUMERUS RT MIN 2 V Normal [facility] XR SHOULDER RT 2V or >on XR SHOULDER RT 2V or > Normal [facility] Outside Recordson 10-01-2022 Outside Records [id number]#1.0 0OTGTIFF [facility] Outside Records [id number]#1.0 0OTGTIFF [facility] XR shoulder RT min 2V*on XR shoulder RT min 2V* [facility] [employer] Other XR shoulder RT min 2V* [facility] [employer] Other XR shoulder RT min 2V* [address] [place] [address] [employer] Other XR shoulder RT min 2V* [place] [address] [facility] [employer] Other XR shoulder RT min 2V* XRay Report N [facility] [employer] Other XR shoulder RT min 2V* S[facility] [employer] Other XR shoulder RT min 2V* Patient: Otilio Suarez MR#: [id number] [facility] [employer] Other XR shoulder RT min 2V* 3 [facility] [employer] Other XR shoulder RT min 2V* : 1955 Acct:[id number] [employer] Other XR shoulder RT min 2V* Age/Sex: 66 / M A DM Date: 10/01/22 [place] [employer] Other XR shoulder RT min 2V* Loc: XDUCLY Room: Type: REG CLI [employer] [place] Other XR shoulder RT min 2V* Attending Dr: Lorene Norris [facility] [employer] [place] Other XR shoulder RT min 2V* Copies to: Ana Norris [facility] [employer] Other XR shoulder RT min 2V* Ordering Provider : Ana Norris APRN [employer] Other XR shoulder RT min 2V* Date of Service: 10/01/22 [employer] Other XR shoulder RT min 2V* XR/XR shoulder RT min 2V*: Injury [employer] Other XR shoulder RT min 2V* 3 views plain filmright shoulder [employer] [place] Other XR shoulder RT min 2V* HISTORY:Fell inju ring right shoulder. Limited range of motion. [employer] Other XR shoulder RT min 2V* COMPARISON:None [employer] Other XR shoulder RT min 2V* Potential nondisp laced fracture of the greater tuberosity identified. Calcific changes of the [employer] Other XR shoulder RT min 2V* rotator cuff pres ent. No fracture of the distal clavicle identified.Mild degenerative changes. [employer] Other XR shoulder RT min 2V* 0 XR/XR shoulder RT min 2V* [employer] Other XR shoulder RT min 2V* IMPRESSION:Fractu re of distal clavicle. Potential nondisplaced fracture of greater tuberosity. [employer] Other XR shoulder RT min 2V* Calcific tendinop athy of rotator cuff. [employer] Other XR shoulder RT min 2V* Impression dictat ed by: Adalberto Moctezuma M.D.10/01/2022 11:11 AM [employer] Other XR shoulder RT min 2V* Dictation Locatio n: RADIO-PC-12 [employer] [place] Other XR shoulder RT min 2V* Transcribed By: Priscilla HENDRIX 10/01/22 1111 [employer] [place] Other XR shoulder RT min 2V* Dictated By: Adalberto Moctezuma DO 10/01/22 1108 [employer] [place] Other XR shoulder RT min 2V* Signed By: No rtClowdy Other XR shoulder RT min 2V* 10/01/22 1111 [place] Other XR shoulder RT min 2V* [facility] Main [place] [address] [place] [address] XRay Report Signed Patient: Otilio Suarez MR#: [id number] 3 : 1955 Acct:[id number] Age/Sex: 66 / M ADM Date: 10/01/22 Loc: XDUCLY Room: Type: [facility] Attending Dr: Ana Norris APRN Copies to: Ana Norris APRN Ordering Provider: Ana Norris APRN Date of Service: 10/01/22 XR/XR shoulder RT min 2V*: Injury 3 views plain filmright shoulder HISTORY:Fell injuring right shoulder. Limited range of motion. COMPARISON:None Potential nondisplaced fracture of the greater tuberosity identified. Calcific changes of the rotator cuff present. No fracture of the distal clavicle identified.Mild degenerative changes. XR/XR shoulder RT min 2V* IMPRESSION:Fracture of distal clavicle. Potential nondisplaced fracture of greater tuberosity. Calcific tendinopathy of rotator cuff. Impression dictated by: Adalberto Moctezuma M.D.10/01/2022 11:11 AM Dictation Location: [place] [address] Transcribed By: [facility] 10/01/22 1111 Dictated By: Adalberto Moctezuma DO 10/01/22 1108 Signed By: 10/01/22 1111 Normal [facility] Office/Clinic Noteon 022 Office/Clinic Note Normal [facility] Coding Summaryon 09-18-2022 C[facility]2021 [facility] Preoperative Record [facility] POCT Glucose Levelon 022 Glucose [Mass/Vol] 283 mg/dL High 74-118 [facility] Comment on above: Performed By: #### 4 [id number] ####[facility] (DEFAULT)[address] [place] [address] Progress Note - Nurseon 09-04 Progress Note - Nurse [facility] Inpatient Clinical Summaryon 09-16-2022 Inpatient Clinical Summary Normal [facility] Inpatient Patient Summaryon 09-16-2022 Inpatient Patient Summary [facility] Outside Recordson 09-16-2022 Outside Records [id number]#1.0 0OTGTIFF [facility] Patient Handouton 09-16-2022 Patient Handout [facility] POCT Glucose Levelon 022 Glucose, POC see comment Invalid Interpretation Code 74-118 [facility] Comment on above: Result Comment: Dupl icate result removed during lab audit. SD 09/11/2022 10:20:39 EST Performed By: #### [id number] ####[facility] (DEFAULT)[address] [place] [address] Glucose, POC see coment Invalid Interpretation Code [address] [place] [address] Comment on above: Result Comment: Dupl icate result removed during lab audit. SD 09/11/2022 10:20:39 EST Performed By: #### 4 [id number] ####[facility] (DEFAULT)[address] [place] [address] Outside Recordson 09-10-2022 Outside Records [id number]#1.0 0OTGTIFF [facility] Outside Recordson 09-01-2022 Outside Records [id number]#1.0 0OTGTIFF [facility] Outside Recordson 08-22-2022 Outside Records [id number]#1.0 0OTGTIFF [facility] Coding Summaryon 08-21-2022 Coding Summary [facility] Progress Note - Provideron 1 10-21-2021 Progress Note - Provider [id number]#1.00 OTGTIFF [facility] Office/Clinic Noteon 022 Office/Clinic Note Normal [facility] Outside Recordson 08-20-2022 Outside Records [id number]#1. 00OTGTIFF [facility] Coding Summaryon 08-19-2022 Coding Summary Normal [facility] Outside Recordson 08-19-2022 Outside Records [id number]#1.0 0OTGTIFF [facility] Phone Message/Callon 022 Phone Message/Call Normal [facility] CULTURE URINEon 08-16-2022 CULTURE URINE Normal [facility] Comment on above: Performed By: #### U RCX ####[facility] [address] [place] [address]Dr. Areli Yousif BNPon 08-15-2022 Natriuretic peptide B (Bld) [Mass/Vol] 874.0 pg/mL Normal <=900.0 [facility] Comment on above: Performed By: #### C MP, CMADM, BNP ####[facility] [address] [place] [address]Dr. Areli Yousif CARDIAC ASHLEY ADMITon 022 CK [Catalytic activity/Vol] 28 U/L Critically low 39-308 [facility] Comment on above: Performed By: #### C MP, CMADM, BNP ####[facility] [address] [place] [address]Dr. Areli Yousif CK.MB [Mass/Vol] 1.11 ng/mL Normal <=3.60 [facility] Comment on above: Performed By: #### C MP, CMADM, BNP ####[facility] [address] [place] [address]Dr. Areli Yousif HSTROP 14.4 pg/mL Normal 4.0-76.1 [facility] Comment on above: Result Comment: CUT- OFF POINTS HAVE BEEN ESTABLISHED BASED ON THE FOURTH UNIVERSAL DEFINITIONS OF MYOCARDIALINFARCTION. THE UPPER REFERENCE LIMIT (URL) OF TROPONIN, DEFINED THE 99TH PERCENTILE OFcTnI DISTRIBUTION IN A REFERENCE POPULATION, HAS BEEN CONFIRMED THE DECISION THRESHOLDFOR NE DIAGNOSIS. Performed By: #### C MP, CMADM, BNP ####[facility] [address] [place] [address]Dr. Areli Benja LAWRENCE 63 ng/mL Normal 16-96 [facility] Comment on above: Performed By: #### C MP, CMADM, BNP ####[facility] [address] [place] [address]Dr. Areli Yousif CBC AUTO DIFFon 08-15-2022 BASO # 0.1 103/ul Normal 0.0-0.1 [facility] Comment on above: Performed By: #### C BC ####[facility] [address] [place] [address]Dr. Areli Yousif Basophils/100 WBC (Bld) 0.5 % Normal 0.2-2.0 [facility] Comment on above: Performed By: #### C BC ####[facility] [address] [place] [address]DrDenae Yousif EO # 0.2 103/ul Normal 0.0-0.7 [facility] Comment on above: Performed By: #### C BC ####[facility] [address] [place], [place] [address]Dr. Areli Yousif Eosinophils/100 WBC (Bld) 2.5 % Normal 0.9-7.0 [facility] Comment on above: Performed By: #### C BC ####[facility] [address] [place], [place] [address]DrDenae Yousif Erythrocyte distribution width (RBC) [Ratio] 13.7 % Normal 11.0-15.0 [facility] Comment on above: Performed By: #### C BC ####[facility] Ted[address] [place], [place] [address]Dr. Areli Yousif Hematocrit (Bld) [Volume fraction] 32.0 % Critically low 42.0-54.0 [facility] Comment on above: Performed By: #### C BC ####[facility] [address] [place], [place] [address]Dr. Areli Yousif Hemoglobin (Bld) [Mass/Vol] 10.3 g/dL Critically low 14.0-18.0 [facility] Comment on above: Performed By: #### C BC ####[facility] [address] [place], [place] [address]DrDenae Yousif IG # 0.05 10e3/ul Critically high 0.00-0.03 [facility] Comment on above: Performed By: #### C BC ####[facility] [address] [place], [place] [address]Dr. Areli Yousif IG % 0.5 % Normal 0.0-0.5 [facility] Comment on above: Performed By: #### C BC ####[facility] [address] [place] [address]DrDenae Yousif LYMPH # 2.7 103/ul Normal 1.2-3.8 [facility] Comment on above: Performed By: #### C BC ####[facility] Y[address] [place] [address]Dr. Areli Yousif Lymphocytes/100 WBC (Bld) 29.1 % Normal 20.5-60.0 [facility] Comment on above: Performed By: #### C BC ####[facility] [address] [place], [place] [address]DrDenae Yousif MANUAL DIFF REQ NO Normal [facility] Comment on above: Performed By: #### C BC ####[facility] [address] [place] [address]DrDenae Yousif MCH (RBC) [Entitic mass] 29.3 pg Normal 25.9-34.0 [facility] Comment on above: Performed By: #### C BC ####[facility] [address] [place], [place] [address]DrDenae Yousif MCHC (RBC) [Mass/Vol] 32.2 g/dL Normal 29.9-35.2 [facility] Comment on above: Performed By: #### C BC ####[facility] Rxrfcpcp[address] [place], [place] [address]DrDenae Yousif MCV (RBC) [Entitic vol] 90.9 fL Normal 80.0-94.0 [facility] Comment on above: Performed By: #### C BC ####[facility] Ox[address] [place], [place] [address]DrDenae Yousif MONO # 0.7 103/ul Normal 0.3-0.8 [facility] Comment on above: Performed By: #### C BC ####[facility] [address] [place], [place] [address]DrDenae Yousif Monocytes/100 WBC (Bld) 7.3 % Normal 1.7-12.0 [facility] Comment on above: Performed By: #### C BC ####[facility] [address] [place] [address]Dr. Areli Yousif NEUT # 5.6 103/ul Normal 1.4-6.5 [facility] Comment on above: Performed By: #### C BC ####[facility] [address]ql[address] [place] [address]Dr. Areli Yousif Neutrophils/100 WBC (Bld) 60.1 % Normal 43.0-75.0 [facility] Comment on above: Performed By: #### C BC ####[facility] [address] [place] [address]Dr. Areli Yousif Platelet mean volume (Bld) [Entitic vol] 10.7 fL Normal 9.5-13.5 [facility] Comment on above: Performed By: #### C BC ####[facility] [address] [place], [place] [address]Dr. Areli Yousif PLT 283 103/ul Normal 150-450 [facility] Comment on above: Performed By: #### C BC ####[facility] [address] [place], [place] [address]Dr. Areli Yousif RBC 3.52 106/ul Critically low 4.70-6.10 [facility] Comment on above: Performed By: #### C BC ####[facility] [address] [place] [address]Dr. Areli Benja WBC 9.3 103/ul Normal 4.0-11.0 [facility] Comment on above: Performed By: #### C BC ####[facility] [address] [place] [address]Dr. Areli Benja POINT OF CARE GLUCOSEon 08-05 Glucose [Mass/Vol] 245 mg/dL Critically high 74-106 [facility] Comment on above: Performed By: #### P OCGLUC ####[facility] [address] [place], [place] [address]Dr. Areli Yousif Glucose [Mass/Vol] 158 mg/dL Critically high 74-106 [facility] Comment on above: Performed By: #### P OCGLUC ####[facility] [address] [place] [address]Dr. Areli Yousif PROF 14(COMP METB)on 022 Albumin [Mass/Vol] 2.9 g/dL Critically low 3.4-5.0 [facility] Comment on above: Performed By: #### C MP, CMADM, BNP ####[facility] [address]acewa[address] [place] [address]Dr. Areli Yousif Albumin/Globulin [Mass ratio] 0.8 {ratio} Normal [facility] Comment on above: Performed By: #### C MP, CMADM, BNP ####[facility] [address] [place] [address]Dr. Areli Yousif ALP [Catalytic activity/Vol] 62 U/L Normal 46-116 [facility] Comment on above: Performed By: #### C MP, CMADM, BNP ####[facility] V[address]cbxydmzi[address] [place] [address]Dr. Areli Yousif ALT [Catalytic activity/Vol] 15 U/L Critically low 16-63 [facility] Comment on above: Performed By: #### C MP, CMADM, BNP ####[facility] X[address]wqdj[address] [place] [address]Dr. Areli Yousif Anion gap [Moles/Vol] 13.5 mmol/L Normal [facility] Comment on above: Performed By: #### C MP, CMADM, BNP ####[facility] Epecaspzpe[address] [place] [address]Dr. Areli Yousif AST [Catalytic activity/Vol] 8 U/L Critically low 15-37 [facility] Comment on above: Performed By: #### C MP, CMADM, BNP ####[facility] R[address]wnwjhqo4[address] [place] [address]Dr. Areli Yousif Bilirubin [Mass/Vol] 0.2 mg/dL Normal 0.2-1.0 [facility] Comment on above: Performed By: #### C MP, CMADM, BNP ####[facility] Rcratinxey[address] [place] [address]Dr. Areli Yousif Calcium [Mass/Vol] 8.5 mg/dL Normal 8.5-10.1 [facility] Comment on above: Performed By: #### C MP, CMADM, BNP ####[facility] Iahnvisodc[address] [place] [address]Dr. Areli Yousif Chloride [Moles/Vol] 105 mmol/L Normal 98-107 [facility] Comment on above: Performed By: #### C MP, CMADM, BNP ####[facility] R[address]vx[address]ajl[address] [place] [address]Dr. Areli Yousif CO2 [Moles/Vol] 22.8 mmol/L Normal 21.0-32.0 [facility] Comment on above: Performed By: #### C MP, CMADM, BNP ####[facility] [address] [place], [place] [address]Dr. Areli Yousif Creatinine [Mass/Vol] 1.09 mg/dL Normal 0.70-1.30 [facility] Comment on above: Performed By: #### C MP, CMADM, BNP ####[facility] [address]ef[address] [place], [place] [address]Dr. Areli Yousif EGFR-AF ICELANDIC >60 Normal >=60 [facility] Comment on above: Performed By: #### C MP, CMADM, BNP ####[facility] Z[address]az[address] [place], [place] [address]Dr. Areli Yousif EGFR-NON AF ICELANDIC >60 Normal >=60 [facility] Comment on above: Performed By: #### C MP, CMADM, BNP ####[facility] G[address]bs[address]uzsrh[address] [place] [address]Dr. Areli Yousif Globulin (S) [Mass/Vol] 3.6 g/dL Normal [facility] Comment on above: Performed By: #### C MP, CMADM, BNP ####[facility] Cyodvdiwdv[address] [place] [address]Dr. Areli Yousif Glucose [Mass/Vol] 155 mg/dL Critically high 74-106 [facility] Comment on above: Performed By: #### C MP, CMADM, BNP ####[facility] [address]aseygrllt[address] [place] [address]Dr. Areli Yousif Potassium [Moles/Vol] 4.3 mmol/L Normal 3.5-5.1 [facility] Comment on above: Performed By: #### C MP, CMADM, BNP ####[facility] [address]ahlgy[address] [place], [place] [address]Dr. Areli Yousif Protein [Mass/Vol] 6.5 g/dL Normal 6.4-8.2 [facility] Comment on above: Performed By: #### C MP, CMADM, BNP ####[facility] [address] [place], [place] [address]Dr. Areli Yousif Sodium [Moles/Vol] 137 mmol/L Normal 136-145 [facility] Comment on above: Performed By: #### C MP, CMADM, BNP ####[facility] [address]uf[address] [place], [place] [address]Dr. Areli Yousif Urea nitrogen [Mass/Vol] 41.0 mg/dL Critically high 7.0-18.0 [facility] Comment on above: Performed By: #### C MP, CMADM, BNP ####[facility] [address] [place], [place] [address]Dr. Areli Yousif Urea nitrogen/Creatinine [Mass ratio] 37.6 mg/mg Normal [facility] Comment on above: Performed By: #### C MP, CMADM, BNP ####[facility] [address]sp[address] [place], [place] [address]Dr. Areli Yousif BNPon 08-14-2022 Natriuretic peptide B (Bld) [Mass/Vol] 866.0 pg/mL Normal <=900.0 [facility] Comment on above: Performed By: #### B RESTAURANT INSPECTOR, CMP, CMADM ####[facility] [address]qvirwh[address] [place] [address]Dr. Areli Yousif CARDIAC ASHLEY ADMITon 022 CK [Catalytic activity/Vol] 43 U/L Normal 39-308 [facility] Comment on above: Performed By: #### B RESTAURANT INSPECTOR, CMP, CMADM ####[facility] Ngxriejuvg[address] [place] [address]Dr. Areli Yousif CK.MB [Mass/Vol] 1.62 ng/mL Normal <=3.60 [facility] Comment on above: Performed By: #### B RESTAURANT INSPECTOR, CMP, CMADM ####[facility] Xpvqkrncbc4[address] [place] [address]Dr. Areli Yousif HSTROP 14.8 pg/mL Normal 4.0-76.1 [facility] Comment on above: Result Comment: CUT- OFF POINTS HAVE BEEN ESTABLISHED BASED ON THE FOURTH UNIVERSAL DEFINITIONS OF MYOCARDIALINFARCTION. THE UPPER REFERENCE LIMIT (URL) OF TROPONIN, DEFINED THE 99TH PERCENTILE OFcTnI DISTRIBUTION IN A REFERENCE POPULATION, HAS BEEN CONFIRMED THE DECISION THRESHOLDFOR NE DIAGNOSIS. Performed By: #### B RESTAURANT INSPECTOR, CMP, CMADM ####[facility] E[address]bqcn[address] [place] [address]Dr. Areli Yousif LAWRENCE 81 ng/mL Normal 16-96 [facility] Comment on above: Performed By: #### B RESTAURANT INSPECTOR, CMP, CMADM ####[facility] U[address]xeuafou[address] [place] [address]Dr. Areli Yousif CBC AUTO DIFFon 08-14-2022 BASO # 0.0 103/ul Normal 0.0-0.1 [facility] Comment on above: Performed By: #### C BC ####[facility] R[address]vmshiinh[address] [place] [address]Dr. Areli Yousif Basophils/100 WBC (Bld) 0.4 % Normal 0.2-2.0 [facility] Comment on above: Performed By: #### C BC ####[facility] P[address]cerf[address] [place], [place] [address]Dr. Areli Yousif EO # 0.3 103/ul Normal 0.0-0.7 [facility] Comment on above: Performed By: #### C BC ####[facility] Ehhlkdizsw[address] [place], [place] [address]Dr. Areli Yousif Eosinophils/100 WBC (Bld) 2.5 % Normal 0.9-7.0 [facility] Comment on above: Performed By: #### C BC ####[facility] Foeyheonar30[address] [place] [address]Dr. Areli Yousif Erythrocyte distribution width (RBC) [Ratio] 13.9 % Normal 11.0-15.0 [facility] Comment on above: Performed By: #### C BC ####[facility] [address]orxj[address] [place], [place] [address]Dr. Areli Yousif Hematocrit (Bld) [Volume fraction] 34.9 % Critically low 42.0-54.0 [facility] Comment on above: Performed By: #### C BC ####[facility] [address]jpzx[address] [place], [place] [address]Dr. Areli Yousif Hemoglobin (Bld) [Mass/Vol] 11.3 g/dL Critically low 14.0-18.0 [facility] Comment on above: Performed By: #### C BC ####[facility] [address]rynrfs[address] [place], [place] [address]Dr. Areli Yousif IG # 0.02 10e3/ul Normal 0.00-0.03 [facility] Comment on above: Performed By: #### C BC ####[facility] [address]uxqtm[address] [place], [place] [address]Dr. Areli Yousif IG % 0.2 % Normal 0.0-0.5 [facility] Comment on above: Performed By: #### C BC ####[facility] U[address] [place], [place] [address]Dr. Areli Yousif LYMPH # 3.4 103/ul Normal 1.2-3.8 [facility] Comment on above: Performed By: #### C BC ####[facility] [address]idirr[address] [place], [place] [address]Dr. Areli Yousif Lymphocytes/100 WBC (Bld) 34.6 % Normal 20.5-60.0 [facility] Comment on above: Performed By: #### C BC ####[facility] [address]if[address]omry[address] [place], [place] [address]Dr. Areli Yousif MANUAL DIFF REQ NO Normal [facility] Comment on above: Performed By: #### C BC ####[facility] Xthgynkbds[address] [place] [address]Dr. Areli Benja MCH (RBC) [Entitic mass] 29.4 pg Normal 25.9-34.0 [facility] Comment on above: Performed By: #### C BC ####[facility] [address]vb[address] [place], [place] [address]Dr. Areli Yousif MCHC (RBC) [Mass/Vol] 32.4 g/dL Normal 29.9-35.2 [facility] Comment on above: Performed By: #### C BC ####[facility] [address]qsatzdjto[address] [place], [place] [address]Dr. Areli Yousif MCV (RBC) [Entitic vol] 90.9 fL Normal 80.0-94.0 [facility] Comment on above: Performed By: #### C BC ####[facility] [address]vw[address] [place], [place] [address]Dr. Areli Yousif MONO # 0.7 103/ul Normal 0.3-0.8 [facility] Comment on above: Performed By: #### C BC ####[facility] [address]wlcwt[address] [place], [place] [address]Dr. Areli Yousif Monocytes/100 WBC (Bld) 6.7 % Normal 1.7-12.0 [facility] Comment on above: Performed By: #### C BC ####[facility] [address]ex[address] [place], [place] [address]DrDenae Yousif NEUT # 5.5 103/ul Normal 1.4-6.5 [facility] Comment on above: Performed By: #### C BC ####[facility] [address]dba[address] [place], [place] [address]Dr. Areli Yousif Neutrophils/100 WBC (Bld) 55.6 % Normal 43.0-75.0 [facility] Comment on above: Performed By: #### C BC ####[facility] [address]aspzt[address] [place], [place] [address]Dr. Areli Yousif Platelet mean volume (Bld) [Entitic vol] 10.1 fL Normal 9.5-13.5 [facility] Comment on above: Performed By: #### C BC ####[facility] [address]qr[address] [place] [address]Dr. Areli Yousif PLT 270 103/ul Normal 150-450 [facility] Comment on above: Performed By: #### C BC ####[facility] [address]yql[address]usvx[address] [place] [address]Dr. Areli Yousif RBC 3.84 106/ul Critically low 4.70-6.10 [facility] Comment on above: Performed By: #### C BC ####[facility] Z[address]znptablh[address] [place] [address]Dr. Areli Benja WBC 10.0 103/ul Normal 4.0-11.0 [facility] Comment on above: Performed By: #### C BC ####[facility] [address] [place] [address]Dr. Areli Benja CTA NECK WO W CONon 08-14-20 22 CTA NECK WO W CON Normal [facility] ECHOCARDIO M/2D COMPLETEon 10-14-2021 ECHOCARDIO M/2D COMPLETE Normal [facility] POINT OF CARE GLUCOSEon 08-05 Glucose [Mass/Vol] 386 mg/dL Critically high 74-106 [facility] Comment on above: Performed By: #### P OCGLUC ####[facility] Prfcmmgotz[address] [place] [address]DrDenae Areli Benja Glucose [Mass/Vol] 234 mg/dL Critically high 74-106 [facility] Comment on above: Performed By: #### P OCGLUC ####[facility] Ibjowxeuem[address] [place] [address]Dr. Areli Yousif Glucose [Mass/Vol] 146 mg/dL Critically high 74-106 [facility] Comment on above: Performed By: #### P OCGLUC ####[facility] Lwwfaausxd[address] [place] [address]DrDenae Yousif PROF 14(COMP METB)on 022 Albumin [Mass/Vol] 3.0 g/dL Critically low 3.4-5.0 [facility] Comment on above: Performed By: #### B RESTAURANT INSPECTOR, CMP, CMADM ####[facility] R[address]bmfhv[address] [place] [address]Dr. Areli Yousif Albumin/Globulin [Mass ratio] 0.8 {ratio} Normal [facility] Comment on above: Performed By: #### B RESTAURANT INSPECTOR, CMP, CMADM ####[facility] Xktolsfmpu[address] [place] [address]Dr. Areli Yousif ALP [Catalytic activity/Vol] 69 U/L Normal 46-116 [facility] Comment on above: Performed By: #### B RESTAURANT INSPECTOR, CMP, CMADM ####[facility] Bjquhabtok[address] [place] [address]Dr. Areli Yousif ALT [Catalytic activity/Vol] 12 U/L Critically low 16-63 [facility] Comment on above: Performed By: #### B RESTAURANT INSPECTOR, CMP, CMADM ####[facility] Gpweuxnrfl[address] [place] [address]Dr. Areli Yousif Anion gap [Moles/Vol] 10.8 mmol/L Normal [facility] Comment on above: Performed By: #### B RESTAURANT INSPECTOR, CMP, CMADM ####[facility] Cceanfcwst[address] [place] [address]Dr. Areli Yousif AST [Catalytic activity/Vol] 8 U/L Critically low 15-37 [facility] Comment on above: Performed By: #### B RESTAURANT INSPECTOR, CMP, CMADM ####[facility] Ybkyykeaed[address] [place] [address]Dr. Areli Yousif Bilirubin [Mass/Vol] 0.3 mg/dL Normal 0.2-1.0 [facility] Comment on above: Performed By: #### B RESTAURANT INSPECTOR, CMP, CMADM ####[facility] Cdafrgbpku[address] [place] [address]Dr. Areli Yousif Calcium [Mass/Vol] 8.8 mg/dL Normal 8.5-10.1 [facility] Comment on above: Performed By: #### B RESTAURANT INSPECTOR, CMP, CMADM ####[facility] Omb[address]ru[address] [place] [id number]. Areli Yousif Chloride [Moles/Vol] 104 mmol/L Normal 98-107 [facility] Comment on above: Performed By: #### B RESTAURANT INSPECTOR, CMP, CMADM ####[facility] Dunmokjkbw[address] [place] [address]Dr. Areli Yousif CO2 [Moles/Vol] 24.6 mmol/L Normal 21.0-32.0 [facility] Comment on above: Performed By: #### B RESTAURANT INSPECTOR, CMP, CMADM ####[facility] Bzoeyfvnos[address] [place] [address]Dr. Areli Yousif Creatinine [Mass/Vol] 1.07 mg/dL Normal 0.70-1.30 [facility] Comment on above: Performed By: #### B RESTAURANT INSPECTOR, CMP, CMADM ####[facility] Haaiirooph[address] [place] [address]Dr. Areli Yousif EGFR-AF ICELANDIC >60 Normal >=60 [facility] Comment on above: Performed By: #### B RESTAURANT INSPECTOR, CMP, CMADM ####[facility] P[address]lllozcs[address] [place] [address]Dr. Areli Yousif EGFR-NON AF ICELANDIC >60 Normal >=60 [facility] Comment on above: Performed By: #### B RESTAURANT INSPECTOR, CMP, CMADM ####[facility] Rlydskteqq[address] [place] [address]Dr. Areli Yousif Globulin (S) [Mass/Vol] 3.8 g/dL Normal [facility] Comment on above: Performed By: #### B RESTAURANT INSPECTOR, CMP, CMADM ####[facility] [address]pwnvjaski[address] [place] [address]Dr. Areli Yousif Glucose [Mass/Vol] 90 mg/dL Normal 74-106 [facility] Comment on above: Performed By: #### B RESTAURANT INSPECTOR, CMP, CMADM ####[facility] Mpotyxrjui[address] [place] [address]Dr. Areli Yousif Potassium [Moles/Vol] 4.4 mmol/L Normal 3.5-5.1 [facility] Comment on above: Performed By: #### B RESTAURANT INSPECTOR, CMP, CMADM ####[facility] Ysegkcopea[address] [place] [address]Dr. Areli Yousif Protein [Mass/Vol] 6.8 g/dL Normal 6.4-8.2 [facility] Comment on above: Performed By: #### B RESTAURANT INSPECTOR, CMP, CMADM ####[facility] Beqrxbrhib[address] [place] [address]Dr. Areli Yousif Sodium [Moles/Vol] 135 mmol/L Critically low 136-145 [facility] Comment on above: Performed By: #### B RESTAURANT INSPECTOR, CMP, CMADM ####[facility] Msagbtwvch[address] [place] [address]Dr. Areli Yousif Urea nitrogen [Mass/Vol] 38.0 mg/dL Critically high 7.0-18.0 [facility] Comment on above: Performed By: #### B RESTAURANT INSPECTOR, CMP, CMADM ####[facility] [address]rowsnyexs[address] [place], [place] [address]Dr. Areli Yousif Urea nitrogen/Creatinine [Mass ratio] 35.5 mg/mg Normal [facility] Comment on above: Performed By: #### B RESTAURANT INSPECTOR, CMP, CMADM ####[facility] Fqyetryhmb[address] [place] [address]Dr. Areli Yousif BNPon 08-13-2022 Natriuretic peptide B (Bld) [Mass/Vol] 963.0 pg/mL Critically high <=900.0 [facility] Comment on above: Performed By: #### L IPA, CMADM, BNP, CMP ####[facility] [address]zlpnur[address] [place] [address]Dr. Areli Yousif CARDIAC ASHLEY ADMITon 022 CK [Catalytic activity/Vol] 48 U/L Normal 39-308 [facility] Comment on above: Performed By: #### L IPA, CMADM, BNP, CMP ####[facility] [address]szlsyefz[address] [place] [address]Dr. Areli Yousif CK.MB [Mass/Vol] 1.17 ng/mL Normal <=3.60 [facility] Comment on above: Performed By: #### L IPA, CMADM, BNP, CMP ####[facility] Lguctbvexa3[address] [place] [address]Dr. Areli Yousif HSTROP 14.9 pg/mL Normal 4.0-76.1 [facility] Comment on above: Result Comment: CUT- OFF POINTS HAVE BEEN ESTABLISHED BASED ON THE FOURTH UNIVERSAL DEFINITIONS OF MYOCARDIALINFARCTION. THE UPPER REFERENCE LIMIT (URL) OF TROPONIN, DEFINED THE 99TH PERCENTILE OFcTnI DISTRIBUTION IN A REFERENCE POPULATION, HAS BEEN CONFIRMED THE DECISION THRESHOLDFOR NE DIAGNOSIS. Performed By: #### L IPA, CMADM, BNP, CMP ####[facility] [address] [place], [place] [address]Dr. Areli Yousif LAWRENCE 86 ng/mL Normal 16-96 [facility] Comment on above: Performed By: #### L IPA, CMADM, BNP, CMP ####[facility] [address] [place], [place] [address]Dr. Areli Yousif CBC AUTO DIFFon 08-13-2022 BASO # 0.0 103/ul Normal 0.0-0.1 [facility] Comment on above: Performed By: #### C BC ####[facility] Psjjlvkxwk[address] [place], [place] [address]Dr. Tabbytulio Yousif Basophils/100 WBC (Bld) 0.3 % Normal 0.2-2.0 [facility] Comment on above: Performed By: #### C BC ####[facility] [address]cm[address]nd[address] [place], [place] [address]Dr. Areli Yousif EO # 0.2 103/ul Normal 0.0-0.7 [facility] Comment on above: Performed By: #### C BC ####[facility] [address]ravyrcz[address] [place], [place] [address]Dr. Areli Yousif Eosinophils/100 WBC (Bld) 2.2 % Normal 0.9-7.0 [facility] Comment on above: Performed By: #### C BC ####[facility] Nwxoc[address]ik[address] [place], [place] [address]Dr. Areli Benja Erythrocyte distribution width (RBC) [Ratio] 13.9 % Normal 11.0-15.0 [facility] Comment on above: Performed By: #### C BC ####[facility] [address]rud[address] [place] [address]Dr. Areli Yousif Hematocrit (Bld) [Volume fraction] 34.4 % Critically low 42.0-54.0 [facility] Comment on above: Performed By: #### C BC ####[facility] Qtpnzhbxdw64[address] [place] [address]Dr. Areli Yousif Hemoglobin (Bld) [Mass/Vol] 11.1 g/dL Critically low 14.0-18.0 [facility] Comment on above: Performed By: #### C BC ####[facility] Clhfracukf[address] [place], [place] [address]Dr. Areli Yousif IG # 0.06 10e3/ul Critically high 0.00-0.03 [facility] Comment on above: Performed By: #### C BC ####[facility] [address]evzwed[address] [place], [place] [address]Dr. Areli Yousif IG % 0.6 % Critically high 0.0-0.5 [facility] Comment on above: Performed By: #### C BC ####[facility] [address]ffosdxu[address] [place], [place] [address]Dr. Areli Yousif LYMPH # 3.2 103/ul Normal 1.2-3.8 [facility] Comment on above: Performed By: #### C BC ####[facility] [address]qdigvdcth[address] [place], [place] [address]Dr. Areli Yousif Lymphocytes/100 WBC (Bld) 29.5 % Normal 20.5-60.0 [facility] Comment on above: Performed By: #### C BC ####[facility] Ffrditrzvk[address] [place], [place] [address]Dr. Areli Yousif MANUAL DIFF REQ NO Normal [facility] Comment on above: Performed By: #### C BC ####[facility] [address]xmozdcnyk[address] [place], [place] [address]Dr. Areli Yousif MCH (RBC) [Entitic mass] 29.5 pg Normal 25.9-34.0 [facility] Comment on above: Performed By: #### C BC ####[facility] [address]qsnodfkqx[address] [place] [address]Dr. Areli Yousif MCHC (RBC) [Mass/Vol] 32.3 g/dL Normal 29.9-35.2 [facility] Comment on above: Performed By: #### C BC ####[facility] Eqleltdkbd[address] [place], [place] [address]Dr. Areli Yousif MCV (RBC) [Entitic vol] 91.5 fL Normal 80.0-94.0 [facility] Comment on above: Performed By: #### C BC ####[facility] [address]jyra[address] [place], [place] [address]Dr. Areli Benja MONO # 0.8 103/ul Normal 0.3-0.8 [facility] Comment on above: Performed By: #### C BC ####[facility] [address]iquawuywo[address] [place], [place] [address]Dr. Areli Benja Monocytes/100 WBC (Bld) 7.4 % Normal 1.7-12.0 [facility] Comment on above: Performed By: #### C BC ####[facility] Zsnhdweugq[address] [place], [place] [address]Dr. Areli Yousif NEUT # 6.4 103/ul Normal 1.4-6.5 [facility] Comment on above: Performed By: #### C BC ####[facility] Dereokggmi[address] [place], [place] [address]Dr. Areli Benja Neutrophils/100 WBC (Bld) 60.0 % Normal 43.0-75.0 [facility] Comment on above: Performed By: #### C BC ####[facility] Troczfw[address] [place], [place] [address]Dr. Areli Yousif Platelet mean volume (Bld) [Entitic vol] 10.3 fL Normal 9.5-13.5 [facility] Comment on above: Performed By: #### C BC ####[facility] [address] [place], [place] [address]Jt. Areli Yousif PLT 282 103/ul Normal 150-450 [facility] Comment on above: Performed By: #### C BC ####[facility] Kty[address] [place], [place] [address]Cs. Areli Yousif RBC 3.76 106/ul Critically low 4.70-6.10 [facility] Comment on above: Performed By: #### C BC ####[facility] R[address]lcz[address] [place], [place] [address]Tu. Areli Yousif WBC 10.7 103/ul Normal 4.0-11.0 [facility] Comment on above: Performed By: #### C BC ####[facility] Kq[address]ok[address] [place], [place] [address]Jq. Areli Yousif CT STROKE HEAD WOon 08-13-[address] STROKE HEAD WO Normal [facility] Covid-19 PCR (CVDTB)on SARS-CoV-2 (COVID-19) RNA MANSI+probe Ql (Unsp spec) Not detected Normal NOT DETECTED [facility] Comment on above: Result Comment: When diagnostic testing is negative, the possibility of a false negative should be considered inthe context of a patient's recent exposures and the presence of clinical signs and symptomsconsistent with SARS-CoV-2.This test is not yet approved or cleared by the [place] FDA. When there are no FDA-approved or cleared tests available, and other criteria are met, FDA can make tests available under an emergency access mechanism called an Emergency Use Authorization (EUA). The EUA for this test is supported by the [place] of Health and Human Service's declaration that circumstances exist to justify the emergency use of in vitro diagnostics for the detection and/or diagnosis of the virus that causes COVID-19. This EUA will remain in effect for the duration of the COVID-19 declaration justifying emergency of IVDs, unless it is terminated or revoked by the FDA (after which the test may no longer be used). Performed By: #### C VDTBH ####[facility] [address]ud[address] [place], [place] [address]Jc. Areli Yousif ER URINE PROFILEon 2 Bilirubin Ql (U) Negative Normal NEGATIVE [facility] Comment on above: Performed By: #### E RUR ####[facility] [address]aaq[address] [place], [place] [address]Dr. Areli Yousif Clarity (U) CLEAR Normal CLEAR [facility] Comment on above: Performed By: #### E RUR ####[facility] Drleduvfyr[address] [place], [place] [address]Dr. Areli Yousif Color (U) LT. YELLOW Normal YELLOW [facility] Comment on above: Performed By: #### E RUR ####[facility] [address]mwhgb[address] [place], [place] [address]Dr. Tabbytulio Yousif ERUAHD A micrscopic examination will be performed if indicated. Normal [facility] Comment on above: Performed By: #### E RUR ####[facility] Aktvgleqyk[address] [place], [place] [address]Dr. Areli Yousif Glucose Ql (U) Negative Normal NEGATIVE [facility] Comment on above: Performed By: #### E RUR ####[facility] Ouyklrlimf[address] [place], [place] [address]Dr. Areli Yousif Hemoglobin Ql (U) Negative Normal NEGATIVE [facility] Comment on above: Performed By: #### E RUR ####[facility] [address]fjontdw[address] [place], [place] [address]Dr. Areli Yousif Ketones Ql (U) Negative Normal NEGATIVE [facility] Comment on above: Performed By: #### E RUR ####[facility] Ilkllbicrn[address] [place], [place] [address]Dr. Tabbytulio Yousif LEUKOCYTES Negative Normal NEGATIVE [facility] Comment on above: Performed By: #### E RUR ####[facility] [address]qqifeoiw[address] [place], [place] [address]Dr. Tabbytulio Yousif Nitrite Ql (U) Negative Normal NEGATIVE [facility] Comment on above: Performed By: #### E RUR ####[facility] Typqmdypwu[address] [place], [place] [address]Dr. Areli Yousif pH (U) 6.0 [pH] Normal 5-9 [facility] Comment on above: Performed By: #### E RUR ####[facility] Ewclmhfhgo[address] [place] [address]Dr. Areli Yousif Protein (U) [Mass/Vol] 30 mg/dL Abnormal NEGAT TIMOTHY/ TRACE [facility] Comment on above: Performed By: #### E RUR ####[facility] Uauqyaiiht[address] [place] [address]Dr. Areli Yousif SPEC GRAVITY 1.020 Normal 1.005-<=1.02 5 [facility] Comment on above: Performed By: #### E RUR ####[facility] Uclqhyyrwd[address] [place] [address]Dr. Areli Yousif UR MICRO IND NOT INDICATED Normal [facility] Comment on above: Performed By: #### E RUR ####[facility] [address]zhyrferu[address] [place], [place] [address]Dr. Areli Yousif Urobilinogen Qn (U) 0.2 {Alyssia'U}/dL Normal 0.2 - 1. 0 [facility] Comment on above: Performed By: #### E RUR ####[facility] Qqnfliodbw[address] [place], [place] [address]Dr. Areli Yousif LACTATE/LACTIC ACIDon 2021 Lactate [Moles/Vol] 1.8 mmol/L Normal 0.4-1.9 [facility] Comment on above: Performed By: #### L ACT ####[facility] Dr[address]opuuici[address] [place], [place] [address]Dr. Areli Yousif LIPASEon 08-13-2022 Lipase [Catalytic activity/Vol] 75.0 U/L Normal 73.0-393.0 [facility] Comment on above: Performed By: #### L IPA, CMADM, BNP, CMP ####[facility] [address]alsjtfis[address] [place] [address]Dr. Areli Yousif POINT OF CARE GLUCOSEon Glucose [Mass/Vol] 118 mg/dL Critically high 74-106 [facility] Comment on above: Performed By: #### P OCGLUC ####[facility] T[address]llsog[address] [place] [address]Dr. Areli Yousif PROF 14(COMP METB)on 022 Albumin [Mass/Vol] 3.3 g/dL Critically low 3.4-5.0 [facility] Comment on above: Performed By: #### L IPA, CMADM, BNP, CMP ####[facility] [address]mdvflr[address] [place] [address]Dr. Areli Yousif Albumin/Globulin [Mass ratio] 0.8 {ratio} Normal [facility] Comment on above: Performed By: #### L IPA, CMADM, BNP, CMP ####[facility] U[address]mkbocby[address] [place], [place] [address]Dr. Areli Yousif ALP [Catalytic activity/Vol] 68 U/L Normal 46-116 [facility] Comment on above: Performed By: #### L IPA, CMADM, BNP, CMP ####[facility] [address]zpmlawajq[address] [place] [address]Dr. Areli Yousif ALT [Catalytic activity/Vol] 12 U/L Critically low 16-63 [facility] Comment on above: Performed By: #### L IPA, CMADM, BNP, CMP ####[facility] Vcyemvypre[address] [place] [address]Dr. Areli Yousif Anion gap [Moles/Vol] 12.0 mmol/L Normal [facility] Comment on above: Performed By: #### L IPA, CMADM, BNP, CMP ####[facility] Eyoicupuet[address] [place] [address]Dr. Areli Yousif AST [Catalytic activity/Vol] 9 U/L Critically low 15-37 [facility] Comment on above: Performed By: #### L IPA, CMADM, BNP, CMP ####[facility] Yv[address]thwkgh[address] [place] [address]Dr. Areli Yousif Bilirubin [Mass/Vol] 0.2 mg/dL Normal 0.2-1.0 [facility] Comment on above: Performed By: #### L IPA, CMADM, BNP, CMP ####[facility] [address]jfqbbfxgp[address] [place] [address]Dr. Areli Yousif Calcium [Mass/Vol] 9.3 mg/dL Normal 8.5-10.1 [facility] Comment on above: Performed By: #### L IPA, CMADM, BNP, CMP ####[facility] Qexyemkqir[address] [place] [address]Dr. Areli Yousif Chloride [Moles/Vol] 104 mmol/L Normal 98-107 [facility] Comment on above: Performed By: #### L IPA, CMADM, BNP, CMP ####[facility] [address]eahlni[address] [place] [address]Dr. Areli Yousif CO2 [Moles/Vol] 25.0 mmol/L Normal 21.0-32.0 [facility] Comment on above: Performed By: #### L IPA, CMADM, BNP, CMP ####[facility] [address]ryrpait[address] [place], [place] [address]Dr. Areli Yousif Creatinine [Mass/Vol] 1.35 mg/dL Critically high 0.70-1.30 [facility] Comment on above: Performed By: #### L IPA, CMADM, BNP, CMP ####[facility] [address]jucu[address] [place], [place] [address]Dr. Tabbytulio Yousif EGFR-AF ICELANDIC >60 Normal >=60 [facility] Comment on above: Performed By: #### L IPA, CMADM, BNP, CMP ####[facility] Seinhmclpx[address] [place], [place] [address]Dr. Tabbytulio Benja EGFR-NON AF ICELANDIC 53 mL/min/1.73m2 Critically low >=60 [facility] Comment on above: Performed By: #### L IPA, CMADM, BNP, CMP ####[facility] Frrtmxnoss[address] [place], [place] [address]Dr. Areli Yousif Globulin (S) [Mass/Vol] 3.9 g/dL Normal [facility] Comment on above: Performed By: #### L IPA, CMADM, BNP, CMP ####[facility] [address]yfs[address] [place] [address]Dr. Areli Yousif Glucose [Mass/Vol] 131 mg/dL Critically high 74-106 [facility] Comment on above: Performed By: #### L IPA, CMADM, BNP, CMP ####[facility] [address]lujw[address] [place] [address]Dr. Tabbytulio Yousif Potassium [Moles/Vol] 5.0 mmol/L Normal 3.5-5.1 [facility] Comment on above: Performed By: #### L IPA, CMADM, BNP, CMP ####[facility] Syt[address]uyvls[address] [place] [address]Dr. Areli Yousif Protein [Mass/Vol] 7.2 g/dL Normal 6.4-8.2 [facility] Comment on above: Performed By: #### L IPA, CMADM, BNP, CMP ####[facility] Iixc[address]vyn[address] [place] [address]Dr. Areli Yousif Sodium [Moles/Vol] 136 mmol/L Normal 136-145 [facility] Comment on above: Performed By: #### L IPA, CMADM, BNP, CMP ####[facility] [address]abzhd[address] [place] [address]Dr. Areli Yousif Urea nitrogen [Mass/Vol] 48.0 mg/dL Critically high 7.0-18.0 [facility] Comment on above: Performed By: #### L IPA, CMADM, BNP, CMP ####[facility] [address]zipjgbcb[address] [place] [address]Dr. Areli Yousif Urea nitrogen/Creatinine [Mass ratio] 35.6 mg/mg Normal [facility] Comment on above: Performed By: #### L IPA, CMADM, BNP, CMP ####[facility] T[address]dfidfzd[address] [place] [address]Dr. Areli Benja XR CHEST 1 Von 08-13-2022 XR CHEST 1 V Normal [facility] Outside Recordson 08-11-2022 Outside Records [id number] .00OTGTIFF Normal [facility] Coding Summaryon 08-08-2022 Coding Summary Normal [facility] Outside Recordson 08-08-2022 Outside Records [id number]#1.0 0OTGTIFF [facility] Outside Recordson 08-05-2022 Outside Records [id number]#1.0 0OTGTIFF [facility] Coding Summaryon 08-04-2022 Coding Summary Normal [facility] Coding Summary Normal [facility] Office/Clinic Noteon 022 Office/Clinic Note Normal [facility] Outside Recordson 08-04-2022 Outside Records [id number] .[facility]-2022 Provider Orders [id number]#[id number] OTGTIFF [facility] BMP Standardon 07-31-2022 eGFR AA >60 Invalid Interpretation Code [facility] Comment on above: Result Comment: Hospice Care Transitions Coordinator lokesh Kidney disease could be indicated at eGFRs of less than 60 ml/min/1.73m2. Kidney Failure is indicated at less than 15 ml/min/1.73m2 Performed By: #### 1 [id number] ####[facility] (DEFAULT)[address] [place] [address] eGFR Non AA >60 Invalid Interpretation Code [facility] Comment on above: Performed By: #### 1 [id number] ####[facility] (DEFAULT)[address] [place] [address] Anion gap [Moles/Vol] 16.0 mmol/L Normal 5.0-19.0 [facility] Comment on above: Performed By: #### 1 [id number] ####[facility] (DEFAULT)[address] [place] [address]47 Calcium [Mass/Vol] 8.8 mg/dL Low 8.9-10.3 [facility] Comment on above: Performed By: #### 1 [id number] ####[facility] (DEFAULT)[address] [place] [address]009 Chloride [Moles/Vol] 101 mmol/L Normal 101-111 [facility] Comment on above: Performed By: #### 1 [id number] ####[facility] (DEFAULT)[address] [place] [address] 26912 CO2 [Moles/Vol] 23 mmol/L Normal 21-32 [facility] Comment on above: Performed By: #### 1 [id number] ####[facility] (DEFAULT)[address] [place] [address]484 Creatinine [Mass/Vol] 1.17 mg/dL Normal 0.90-1.30 [facility] Comment on above: Performed By: #### 1 [id number] ####[facility] (DEFAULT)[address] [place] [address]76 Glucose [Mass/Vol] 33.0 mg/dL Critically abnormal 74.0-118.0 [facility] Comment on above: Result Comment: Crit ical GLUm 33 result called and read back ok to: BARBARA LIGHT at: 13:54:45 07/31/2022 by: SONYA Performed By: #### 1 [id number] ####[facility] (DEFAULT)[address] [place] [address] 78635 Osmolality 273 mOsm/L Invalid Interpretation Code [facility] Comment on above: Performed By: #### 1 [id number] ####[facility] (DEFAULT)[address] [place] [address] 04069 Potassium [Moles/Vol] 4.8 mmol/L Normal 3.6-5.1 [facility] Comment on above: Performed By: #### 1 [id number] ####[facility] (DEFAULT)[address] [place] [address] 76797 Sodium [Moles/Vol] 135.0 mmol/L Low 136.0-144.0 [facility] Comment on above: Performed By: #### 1 [id number] ####[facility] (DEFAULT)[address] [place] [address] 71198 Urea nitrogen [Mass/Vol] 30 mg/dL High 8-26 [facility] Comment on above: Performed By: #### 1 [id number] ####[facility] (DEFAULT)[address] [place] [address] 37964 Urea nitrogen/Creatinine [Mass ratio] 26.0 mg/mg High 4.6-16.2 [facility] Comment on above: Performed By: #### 1 [id number] ####[facility] (DEFAULT)[address] [place] [address] 05963 Phone Message/Callon 022 Phone Message/Call [facility] Coding Summaryon 07-28-2022 Coding Summary Normal [facility] Progress Note - Nurseon 07-06 Progress Note - Nurse [id number]#1.0 0OTGTIFF [facility] POCT Glucose Levelon 022 Glucose [Mass/Vol] 221 mg/dL High 74-118 [facility] Comment on above: Performed By: #### 4 [id number] ####[facility] (DEFAULT)[address] [place], [place] [address] Consent Formson 07-25-2022 Consent Forms [id number] 00 [id number]#1.0 0OTGTIFF [facility] Provider Orderson 07-25-2022 Provider Orders [id number]#1.00 OTGTIFF [facility] Coding Queryon 07-24-2022 Coding Query [facility] Consent Formson 07-24-2022 Consent Forms [id number]#1.0 0OTGTIFF [facility] Phone Message/Callon 022 Phone Message/Call [facility] .Auto Diff 1on 07-23-2022 Auto Victoria % 7 % Normal 1-12 [facility] Comment on above: Performed By: #### 1 [id number], [id number], [id number] ####[facility] (DEFAULT)[address] [place] [address] 39433 Baso Abs# 0.0 x10 Normal 0.0-0.2 [facility] Comment on above: Performed By: #### 1 [id number], [id number], [id number] ####[facility] (DEFAULT)[address] [place] [address] 59057 Basophils/100 WBC (Bld) 0.2 % Normal 0.2-2.0 [facility] Comment on above: Performed By: #### 1 [id number], [id number], [id number] ####[facility] (DEFAULT)[address] [place] [address] 70297 Eos Abs# 0.2 x10 Normal 0.0-0.4 [facility] Comment on above: Performed By: #### 1 [id number], [id number], 6573200 ####[facility] (DEFAULT)[address] [place] [address] 61192 Eosinophils/100 WBC (Bld) 2.1 % Normal 0.9-4.0 [facility] Comment on above: Performed By: #### 1 [id number], [id number], [id number] ####[facility] (DEFAULT)[address] [place] [address] 11296 Lymph Abs# 3.2 x10 High 1.3-2.9 [facility] Comment on above: Performed By: #### 1 [id number], [id number], [id number] ####[facility] (DEFAULT)[address] [place] [address] 51355 Lymphocytes/100 WBC (Bld) 35 % Normal 14-48 [facility] Comment on above: Performed By: #### 1 [id number], [id number], 8492514 ####[facility] (DEFAULT)[address] [place] [address] 17143 Victoria Abs# 0.7 x10 Normal 0.0-0.8 [facility] Comment on above: Performed By: #### 1 [id number], 52710205, [id number] ####[facility] (DEFAULT)[address] [place] [address] 35718 Neut Abs# 5.1 x10 Normal 1.5-9.2 [facility] Comment on above: Performed By: #### 1 [id number], [id number], [id number] ####[facility] (DEFAULT)[address] [place] [address] Neutrophils/100 WBC (Bld) 56 % Normal 44-88 [facility] Comment on above: Performed By: #### 1 [id number], 27788276, [id number] ####[facility] (DEFAULT)[address] [place] [address] 89436 [facility] Standardon 07-23-2022 eGFR Non AA >60 Invalid Interpretation Code [facility] Comment on above: Performed By: #### 1 [id number], [id number], [id number] ####[facility] (DEFAULT)[address] [place] [address] 23200 eGFR AA >60 Invalid Interpretation Code [facility] Comment on above: Result Comment: Hospice Care Transitions Coordinator lokesh Kidney disease could be indicated at eGFRs of less than 60 ml/min/1.73m2. Kidney Failure is indicated at less than 15 ml/min/1.73m2 Performed By: #### 1 [id number], [id number], [id number] ####[facility] (DEFAULT)[address] [place] [address] 45115 Anion gap [Moles/Vol] 12.0 mmol/L Normal 5.0-19.0 [facility] Comment on above: Performed By: #### 1 [id number], [id number], [id number] ####[facility] (DEFAULT)[address] [place] [address] 49637 Calcium [Mass/Vol] 8.7 mg/dL Low 8.9-10.3 [facility] Comment on above: Performed By: #### 1 [id number], [id number], 5374905 ####[facility] (DEFAULT)[address] [place] [address] 55606 Chloride [Moles/Vol] 106 mmol/L Normal 101-111 [facility] Comment on above: Performed By: #### 1 [id number], 29346626, 3798682 ####[facility] (DEFAULT)[address] [place] [address] 80432 CO2 [Moles/Vol] 24 mmol/L Normal 21-32 [facility] Comment on above: Performed By: #### 1 [id number], [id number], 5701768 ####[facility] (DEFAULT)[address] [place] [address] 34161 Creatinine [Mass/Vol] 1.05 mg/dL Normal 0.90-1.30 [facility] Comment on above: Performed By: #### 1 [id number], 45664110, 3139733 ####[facility] (DEFAULT)[address] [place] [address] 02523 Glucose [Mass/Vol] 126.0 mg/dL High 74.0-118.0 [facility] Comment on above: Performed By: #### 1 [id number], 91679088, 7542950 ####[facility] (DEFAULT)[address] [place] [address] 79413 Osmolality 286 mOsm/L Invalid Interpretation Code [facility] Comment on above: Performed By: #### 1 [id number], [id number], [id number] ####[facility] (DEFAULT)[address] [place] [address] 23395 Potassium [Moles/Vol] 4.5 mmol/L Normal 3.6-5.1 [facility] Comment on above: Performed By: #### 1 [id number], 85547094, [id number] ####[facility] (DEFAULT)[address] [place] [address] 81742 Sodium [Moles/Vol] 137.0 mmol/L Normal 136.0-144.0 [facility] Comment on above: Performed By: #### 1 [id number], [id number], 7094469 ####[facility] (DEFAULT)[address] [place] [address] 30750 Urea nitrogen [Mass/Vol] 44 mg/dL High 8-26 [facility] Comment on above: Performed By: #### 1 [id number], 84404438, 5526600 ####[facility] (DEFAULT)[address] [place] [address] 78368 Urea nitrogen/Creatinine [Mass ratio] 42.0 mg/mg High 4.6-16.2 [facility] Comment on above: Performed By: #### 1 [id number], 51178984, 9948845 ####[facility] (DEFAULT)[address] [place] [address] CBC w/ Auto Diffon 2 Erythrocyte distribution width (RBC) [Ratio] 13.4 % Normal 11.5-15.0 [facility] Comment on above: Performed By: #### 1 [id number], 56796342, 3977205 ####[facility] (DEFAULT)[address] [place] [address] Hematocrit (Bld) [Volume fraction] 30.0 % Low 34.8-51.9 [facility] Comment on above: Performed By: #### 1 [id number], 30971902, 3202162 ####[facility] (DEFAULT)[address] [place] [address] Hemoglobin (Bld) [Mass/Vol] 9.5 g/dL Low 11.8-17.7 [facility] Comment on above: Performed By: #### 1 [id number], 74149361, 9802701 ####[facility] (DEFAULT)[address] [place] [address] Instr WBC 9.2 x10 Invalid Interpretation Code [facility] Comment on above: Performed By: #### 1 [id number], 29628044, 6037491 ####[facility] (DEFAULT)[address] [place] [address] Man Diff? Auto Normal [facility] Comment on above: Performed By: #### 1 [id number], 27576633, 6127706 ####[facility] (DEFAULT)[address] [place] [address] 25931 MCH (RBC) [Entitic mass] 29 pg Normal 24-34 [facility] Comment on above: Performed By: #### 1 [id number], 41183477, 7151391 ####[facility] (DEFAULT)[address] [place] [address] 05148 MCHC (RBC) [Mass/Vol] 32 g/dL Normal 26-37 [facility] Comment on above: Performed By: #### 1 [id number], 79972645, 6092403 ####[facility] (DEFAULT)[address] [place] [address] 14467 MCV (RBC) [Entitic vol] 91 fL Normal 81-100 [facility] Comment on above: Performed By: #### 1 [id number], 25384215, 1307357 ####[facility] (DEFAULT)[address] [place] [address] 24456 Platelet 253 x10 Normal 138-427 [facility] Comment on above: Performed By: #### 1 [id number], 34128130, 9059650 ####[facility] (DEFAULT)[address] [place] [address] 21441 Platelet mean volume (Bld) [Entitic vol] 11.1 fL High 6.3-10.2 [facility] Comment on above: Performed By: #### 1 [id number], 45300193, 0697089 ####[facility] (DEFAULT)[address] [place] [address] 73194 RBC 3.29 x10 Low 3.70-5.30 [facility] Comment on above: Performed By: #### 1 [id number], 99908265, 8526317 ####[facility] (DEFAULT)[address] [place] [address] 67397 WBC 9.2 x10 Normal 3.5-10.5 [facility] Comment on above: Performed By: #### 1 [id number], 12334145, 6091306 ####[facility] (DEFAULT)[address] [place] [address] 68768 Education Noteon 07-23-2022 Education Note Normal [facility] Inpatient Clinical Summaryon 07-23-2022 Inpatient Clinical Summary Normal [facility] Inpatient Patient Summaryon 07-23-2022 Inpatient Patient Summary Normal [facility] Nutrition Noteon 07-23-2022 Nutrition Note Normal [facility] POCT Glucose Levelon 022 Glucose [Mass/Vol] 221 mg/dL High 74-118 [facility] Comment on above: Performed By: #### 4 [id number] ####[facility] (DEFAULT)[address] [place] [address] 75692 Glucose [Mass/Vol] 68 mg/dL Low 74-118 [facility] Comment on above: Performed By: #### 4 [id number] ####[facility] (DEFAULT)[address] [place] [address] 11256 Pharmacy Noteon 07-23-2022 Pharmacy Note Normal [facility] .Auto Diff 1on 07-22-2022 Auto Victoria % 8 % Normal 1-12 [facility] Comment on above: Performed By: #### 1 [id number], [id number], 90375342 ####[facility] (DEFAULT)[address] [place] [address] Baso Abs# 0.0 x10 Normal 0.0-0.2 [facility] Comment on above: Performed By: #### 1 [id number], 5799556, 52663697 ####[facility] (DEFAULT)[address] [place] [address] 65774 Basophils/100 WBC (Bld) 0.2 % Normal 0.2-2.0 [facility] Comment on above: Performed By: #### 1 [id number], 4542818, 71613212 ####[facility] (DEFAULT)[address] [place] [address] 49701 Eos Abs# 0.2 x10 Normal 0.0-0.4 [facility] Comment on above: Performed By: #### 1 [id number], 0995777, 74085916 ####[facility] (DEFAULT)[address] [place] [address] 34269 Eosinophils/100 WBC (Bld) 2.3 % Normal 0.9-4.0 [facility] Comment on above: Performed By: #### 1 [id number], 9771036, 91267135 ####[facility] (DEFAULT)[address] [place] [address] 35958 Lymph Abs# 2.6 x10 Normal 1.3-2.9 [facility] Comment on above: Performed By: #### 1 [id number], [id number], 00625350 ####[facility] (DEFAULT)[address] [place] [address] 81304 Lymphocytes/100 WBC (Bld) 31 % Normal 14-48 [facility] Comment on above: Performed By: #### 1 [id number], 9332334, 32262746 ####[facility] (DEFAULT)[address] [place] [address] Victoria Abs# 0.7 x10 Normal 0.0-0.8 [facility] Comment on above: Performed By: #### 1 [id number], [id number], 61750897 ####[facility] (DEFAULT)[address] [place] [address] Neut Abs# 4.9 x10 Normal 1.5-9.2 [facility] Comment on above: Performed By: #### 1 [id number], 7180412, 54004766 ####[facility] (DEFAULT)[address] [place] [address] Neutrophils/100 WBC (Bld) 59 % Normal 44-88 [facility] Comment on above: Performed By: #### 1 [id number], 7094741, 69764024 ####[facility] (DEFAULT)[address] [place] [address] BMP Standardon 07-22-2022 eGFR Non AA 57 mL/min/1.73m2 Invalid Interpretation Code [facility] Comment on above: Order Comment: I spo ke with Darline Thacker Nursing Pipe Puller/RN and asked if this blood work needs to be done at 0600. She said no that it can be done sooner. 07/22/2022 04:03:17 EDT Performed By: #### 1 [id number], [id number], 87155289 ####[facility] (DEFAULT)[address] [place] [address] eGFR AA >60 Invalid Interpretation Code [facility] Comment on above: Order Comment: I spo ke with Darline Thacker Nursing Pipe Puller/RN and asked if this blood work needs to be done at 0600. She said no that it can be done sooner. 07/22/2022 04:03:17 EDT Result Comment: Hospice Care Transitions Coordinator lokesh Kidney disease could be indicated at eGFRs of less than 60 ml/min/1.73m2. Kidney Failure is indicated at less than 15 ml/min/1.73m2 Performed By: #### 1 [id number], 7615418, 99741246 ####[facility] (DEFAULT)[address] [place] [address] 67081 Anion gap [Moles/Vol] 12.0 mmol/L Normal 5.0-19.0 [facility] Comment on above: Order Comment: I spo ke with Darline Thacker Nursing Pipe Puller/RN and asked if this blood work needs to be done at 0600. She said no that it can be done sooner. 07/22/2022 04:03:17 EDT Performed By: #### 1 [id number], 9994274, 72763715 ####[facility] (DEFAULT)[address] [place] [address] 60462 Calcium [Mass/Vol] 8.6 mg/dL Low 8.9-10.3 [facility] Comment on above: Order Comment: I spo ke with Darline Thacker Nursing Pipe Puller/RN and asked if this blood work needs to be done at 0600. She said no that it can be done sooner. 07/22/2022 04:03:17 EDT Performed By: #### 1 [id number], 2262042, 76342090 ####[facility] (DEFAULT)[address] [place] [address] 22267 Chloride [Moles/Vol] 106 mmol/L Normal 101-111 [facility] Comment on above: Order Comment: I spo ke with Darline Thacker Nursing Pipe Puller/RN and asked if this blood work needs to be done at 0600. She said no that it can be done sooner. 07/22/2022 04:03:17 EDT Performed By: #### 1 [id number], 7950352, 86590665 ####[facility] (DEFAULT)[address] [place] [address] 15034 CO2 [Moles/Vol] 23 mmol/L Normal 21-32 [facility] Comment on above: Order Comment: I spo ke with Darline Thacker Nursing Pipe Puller/RN and asked if this blood work needs to be done at 0600. She said no that it can be done sooner. 07/22/2022 04:03:17 EDT Performed By: #### 1 [id number], 4400905, 98333634 ####[facility] (DEFAULT)[address] [place] [address] 87080 Creatinine [Mass/Vol] 1.26 mg/dL Normal 0.90-1.30 [facility] Comment on above: Order Comment: I spo ke with Darline Thacker Nursing Pipe Puller/RN and asked if this blood work needs to be done at 0600. She said no that it can be done sooner. 07/22/2022 04:03:17 EDT Performed By: #### 1 [id number], 3240743, 93710758 ####[facility] (DEFAULT)[address] [place] [address] 76987 Glucose [Mass/Vol] 270.0 mg/dL High 74.0-118.0 [facility] Comment on above: Order Comment: I spo ke with Darline Thacker Nursing Pipe Puller/RN and asked if this blood work needs to be done at 0600. She said no that it can be done sooner. 07/22/2022 04:03:17 EDT Performed By: #### 1 [id number], 9360535, 89280669 ####[facility] (DEFAULT)[address] [place] [address] 80002 Osmolality 294 mOsm/L Invalid Interpretation Code [facility] Comment on above: Order Comment: I spo ke with Darline Thacker Nursing Pipe Puller/RN and asked if this blood work needs to be done at 0600. She said no that it can be done sooner. 07/22/2022 04:03:17 EDT Performed By: #### 1 [id number], 7798271, 23510458 ####[facility] (DEFAULT)[address] [place] [address] 17356 Potassium [Moles/Vol] 5.2 mmol/L High 3.6-5.1 [facility] Comment on above: Order Comment: I spo ke with Darline Thacker Nursing Pipe Puller/RN and asked if this blood work needs to be done at 0600. She said no that it can be done sooner. 07/22/2022 04:03:17 EDT Performed By: #### 1 [id number], 8200422, 64391556 ####[facility] (DEFAULT)[address] [place] [address] 38336 Sodium [Moles/Vol] 136.0 mmol/L Normal 136.0-144.0 [facility] Comment on above: Order Comment: I spo ke with Darline Thacker Nursing Pipe Puller/RN and asked if this blood work needs to be done at 0600. She said no that it can be done sooner. 07/22/2022 04:03:17 EDT Performed By: #### 1 [id number], 2988940, 40418754 ####[facility] (DEFAULT)[address] [place] [address] 11127 Urea nitrogen [Mass/Vol] 49 mg/dL High 05-30 [facility] Comment on above: Order Comment: I spo ke with Darline Thacker Nursing Pipe Puller/RN and asked if this blood work needs to be done at 0600. She said no that it can be done sooner. 07/22/2022 04:03:17 EDT Performed By: #### 1 [id number], 3834605, [id number] ####[facility] (DEFAULT)[address] [place] [address] 38456 Urea nitrogen/Creatinine [Mass ratio] 39.0 mg/mg High 4.6-16.2 [facility] Comment on above: Order Comment: I spo ke with Darline Thacker Nursing Pipe Puller/RN and asked if this blood work needs to be done at 0600. She said no that it can be done sooner. 07/22/2022 04:03:17 EDT Performed By: #### 1 [id number], 6679961, 74601643 ####[facility] (DEFAULT)[address] [place] [address] 25661 CBC w/ Auto Diffon 2 Erythrocyte distribution width (RBC) [Ratio] 13.4 % Normal 11.5-15.0 [facility] Comment on above: Order Comment: I spo ke with Darline Thacker Nursing Pipe Puller/RN and asked if this blood work needs to be done at 0600. She said no that it can be done sooner. 07/22/2022 04:03:17 EDT Performed By: #### 1 [id number], 9117368, 16844079 ####[facility] (DEFAULT)[address] [place] [address] 51649 Hematocrit (Bld) [Volume fraction] 28.6 % Low 34.8-51.9 [facility] Comment on above: Order Comment: I spo ke with Darline Thacker Nursing Pipe Puller/RN and asked if this blood work needs to be done at 0600. She said no that it can be done sooner. 07/22/2022 04:03:17 EDT Performed By: #### 1 [id number], 2624525, [id number] ####[facility] (DEFAULT)[address] [place] [address] Hemoglobin (Bld) [Mass/Vol] 9.2 g/dL Low 11.8-17.7 [facility] Comment on above: Order Comment: I spo ke with Darline Thacker Nursing Pipe Puller/RN and asked if this blood work needs to be done at 0600. She said no that it can be done sooner. 07/22/2022 04:03:17 EDT Performed By: #### 1 [id number], 1405732, [id number] ####[facility] (DEFAULT)[address] [place] [address] Instr WBC 8.3 x10 Invalid Interpretation Code [facility] Comment on above: Order Comment: I spo ke with Darline Thacker Nursing Pipe Puller/RN and asked if this blood work needs to be done at 0600. She said no that it can be done sooner. 07/22/2022 04:03:17 EDT Performed By: #### 1 [id number], [id number], [id number] ####[facility] (DEFAULT)[address] [place] [address] 88867 Man Diff? Auto Normal [facility] Comment on above: Order Comment: I spo ke with Darline Thacker Nursing Pipe Puller/RN and asked if this blood work needs to be done at 0600. She said no that it can be done sooner. 07/22/2022 04:03:17 EDT Performed By: #### 1 [id number], 5999732, [id number] ####[facility] (DEFAULT)[address] [place] [address] 04780 MCH (RBC) [Entitic mass] 30 pg Normal 24-34 [facility] Comment on above: Order Comment: I spo ke with Darline Thacker Nursing Pipe Puller/RN and asked if this blood work needs to be done at 0600. She said no that it can be done sooner. 07/22/2022 04:03:17 EDT Performed By: #### 1 [id number], 7391514, 57907729 ####[facility] (DEFAULT)[address] [place] [address] 01209 MCHC (RBC) [Mass/Vol] 32 g/dL Normal 26-37 [facility] Comment on above: Order Comment: I spo ke with Darline Thacker Nursing Pipe Puller/RN and asked if this blood work needs to be done at 0600. She said no that it can be done sooner. 07/22/2022 04:03:17 EDT Performed By: #### 1 [id number], [id number], [id number] ####[facility] (DEFAULT)[address] [place] [address] 38275 MCV (RBC) [Entitic vol] 92 fL Normal 81-100 [facility] Comment on above: Order Comment: I spo ke with Darline Thacker Nursing Pipe Puller/RN and asked if this blood work needs to be done at 0600. She said no that it can be done sooner. 07/22/2022 04:03:17 EDT Performed By: #### 1 [id number], [id number], [id number] ####[facility] (DEFAULT)[address] [place] [address] 30676 Platelet 254 x10 Normal 138-427 [facility] Comment on above: Order Comment: I spo ke with Darline Thacker Nursing Pipe Puller/RN and asked if this blood work needs to be done at 0600. She said no that it can be done sooner. 07/22/2022 04:03:17 EDT Performed By: #### 1 [id number], [id number], [id number] ####[facility] (DEFAULT)[address] [place] [address] 20978 Platelet mean volume (Bld) [Entitic vol] 11.3 fL High 6.3-10.2 [facility] Comment on above: Order Comment: I spo ke with Darline Thacker Nursing Pipe Puller/RN and asked if this blood work needs to be done at 0600. She said no that it can be done sooner. 07/22/2022 04:03:17 EDT Performed By: #### 1 [id number], [id number], [id number] ####[facility] (DEFAULT)[address] [place] [address] 22477 RBC 3.12 x10 Low 3.70-5.30 [facility] Comment on above: Order Comment: I spo ke with Darline Thacker Nursing Pipe Puller/RN and asked if this blood work needs to be done at 0600. She said no that it can be done sooner. 07/22/2022 04:03:17 EDT Performed By: #### 1 [id number], [id number], [id number] ####[facility] (DEFAULT)[address] [place] [address] 65890 WBC 8.3 x10 Normal 3.5-10.5 [facility] Comment on above: Order Comment: I spo ke with Darline Thacker Nursing Pipe Puller/RN and asked if this blood work needs to be done at 0600. She said no that it can be done sooner. 07/22/2022 04:03:17 EDT Performed By: #### 1 [id number], [id number], [id number] ####[facility] (DEFAULT)[address] [place] [address] 10675 POCT Glucose Levelon 022 Glucose [Mass/Vol] 257 mg/dL High 74-118 [facility] Comment on above: Performed By: #### 4 [id number] ####[facility] (DEFAULT)[address] [place] [address] 76406 Glucose [Mass/Vol] 271 mg/dL High 74-118 [facility] Comment on above: Performed By: #### 4 [id number] ####[facility] (DEFAULT)[address] [place] [address] 36225 Glucose [Mass/Vol] 195 mg/dL High [address] [place] [address] Comment on above: Performed By: #### 4 [id number] ####[facility] (DEFAULT)[address] [place] [address] 20395 Glucose [Mass/Vol] 170 mg/dL High [address] [place] [address] Comment on above: Performed By: #### 4 [id number] ####[facility] (DEFAULT)[address] [place] [address] 84453 Progress Note - Nurseon 07-05 Progress Note - Nurse [facility] .Auto Diff 07-21-2022 Auto Victoria % 6 % Normal -12 [facility] Comment on above: Performed By: #### 1 [id number], [id number] ####[facility] (DEFAULT)[address] [place] [address] 83190 Baso Abs# 0.0 x10 Normal 0.0-0.2 [facility] Comment on above: Performed By: #### 1 [id number], [id number], [id number] ####[facility] (DEFAULT)[address] [place] [address] 01388 Basophils/100 WBC (Bld) 0.2 % Normal 0.2-2.0 [facility] Comment on above: Performed By: #### 1 [id number], [id number], [id number] ####[facility] (DEFAULT)[address] [place] [address] 89702 Eos Abs# 0.3 x10 Normal 0.0-0.4 [facility] Comment on above: Performed By: #### 1 [id number], [id number], [id number] ####[facility] (DEFAULT)[address] [place] [address] 89939 Eosinophils/100 WBC (Bld) 3.2 % Normal 0.9-4.0 [facility] Comment on above: Performed By: #### 1 [id number], [id number], [id number] ####[facility] (DEFAULT)[address] [place] [address] 17416 Lymph Abs# 2.9 x10 Normal 1.3-2.9 [facility] Comment on above: Performed By: #### 1 [id number], [id number], [id number] ####[facility] (DEFAULT)[address] [place] [address] 14198 Lymphocytes/100 WBC (Bld) 34 % Normal 14-48 [facility] Comment on above: Performed By: #### 1 [id number], [id number], [id number] ####[facility] (DEFAULT)[address] [place] [address] Victoria Abs# 0.6 x10 Normal 0.0-0.8 [facility] Comment on above: Performed By: #### 1 [id number], [id number], [id number] ####[facility] (DEFAULT)[address] [place] [address] Neut Abs# 4.8 x10 Normal 1.5-9.2 [facility] Comment on above: Performed By: #### 1 [id number], [id number], [id number] ####[facility] (DEFAULT)[address] [place] [address] 89487 Neutrophils/100 WBC (Bld) 56 % Normal 44-88 [facility] Comment on above: Performed By: #### 1 [id number], [id number], [id number] ####[facility] (DEFAULT)[address] [place] [address] Standard 07-21-2022 eGFR Non AA 49 mL/min/1.73m2 Invalid Interpretation Code [facility] Comment on above: Performed By: #### 1 [id number] ####[facility] (DEFAULT)[address] [place] [address] eGFR AA 59 mL/min/1.73m2 Invalid Interpretation Code [facility] Comment on above: Result Comment: Hospice Care Transitions Coordinator lokesh Kidney disease could be indicated at eGFRs of less than 60 ml/min/1.73m2. Kidney Failure is indicated at less than 15 ml/min/1.73m2 Performed By: #### 1 [id number] ####[facility] (DEFAULT)[address] [place] [address] 05192 Anion gap [Moles/Vol] 12.0 mmol/L Normal 5.0-19.0 [facility] Comment on above: Performed By: #### 1 [id number] ####[facility] (DEFAULT)[address] [place] [address] 47608 Calcium [Mass/Vol] 8.6 mg/dL Low 8.9-10.3 [facility] Comment on above: Performed By: #### 1 [id number] ####[facility] (DEFAULT)[address] [place] [address] 50228 Chloride [Moles/Vol] 105 mmol/L Normal 101-111 [facility] Comment on above: Performed By: #### 1 [id number] ####[facility] (DEFAULT)[address] [place] [address] 40503 CO2 [Moles/Vol] 22 mmol/L Normal 21-32 [facility] Comment on above: Performed By: #### 1 [id number] ####[facility] (DEFAULT)[address] [place] [address] 47394 Creatinine [Mass/Vol] 1.44 mg/dL High 0.90-1.30 [facility] Comment on above: Performed By: #### 1 [id number] ####[facility] (DEFAULT)[address] [place] [address] 57691 Glucose [Mass/Vol] 290.0 mg/dL High 74.0-118.0 [facility] Comment on above: Performed By: #### 1 [id number] ####[facility] (DEFAULT)[address] [place] [address] 96207 Osmolality 291 mOsm/L Invalid Interpretation Code [facility] Comment on above: Performed By: #### 1 [id number] ####[facility] (DEFAULT)[address] [place] [address] 20526 Potassium [Moles/Vol] 5.6 mmol/L High 3.6-5.1 [facility] Comment on above: Performed By: #### 1 [id number] ####[facility] (DEFAULT)[address] [place] [address] Sodium [Moles/Vol] 133.0 mmol/L Low 136.0-144.0 [facility] Comment on above: Performed By: #### 1 [id number] ####[facility] (DEFAULT)[address] [place] [address] 90020 Urea nitrogen [Mass/Vol] 51 mg/dL High 8-26 [facility] Comment on above: Performed By: #### 1 [id number] ####[facility] (DEFAULT)[address] [place] [address] 57876 Urea nitrogen/Creatinine [Mass ratio] 35.0 mg/mg High 4.6-16.2 [facility] Comment on above: Performed By: #### 1 [id number] ####[facility] (DEFAULT)[address] [place] [address] 02213 eGFR Non AA 53 mL/min/1.73m2 Invalid Interpretation Code [facility] Comment on above: Order Comment: I spo ke with Esther Bautista RN and had asked if 0600 blood work had be done at 0600. She said no that they can be done at morning blood work draws at 0430. 07/21/2022 04:08:38 EDT Performed By: #### 1 [id number], [id number], [id number] ####[facility] (DEFAULT)[address] [place] [address] 30761 eGFR AA >60 Invalid Interpretation Code [facility] Comment on above: Order Comment: I spo ke with Esther Bautista RN and had asked if 0600 blood work had be done at 0600. She said no that they can be done at morning blood work draws at 0430. 07/21/2022 04:08:38 EDT Result Comment: Hospice Care Transitions Coordinator lokesh Kidney disease could be indicated at eGFRs of less than 60 ml/min/1.73m2. Kidney Failure is indicated at less than 15 ml/min/1.73m2 Performed By: #### 1 [id number], [id number], [id number] ####[facility] (DEFAULT)[address] [place] [address] 59717 Anion gap [Moles/Vol] 11.0 mmol/L Normal 5.0-19.0 [facility] Comment on above: Order Comment: I spo ke with Esther Bautista RN and had asked if 0600 blood work had be done at 0600. She said no that they can be done at morning blood work draws at 0430. 07/21/2022 04:08:38 EDT Performed By: #### 1 [id number], [id number], [id number] ####[facility] (DEFAULT)[address] [place] [address] 55258 Calcium [Mass/Vol] 9.0 mg/dL Normal 8.9-10.3 [facility] Comment on above: Order Comment: I spo ke with Esther Bautista RN and had asked if 0600 blood work had be done at 0600. She said no that they can be done at morning blood work draws at 0430. 07/21/2022 04:08:38 EDT Performed By: #### 1 [id number], [id number], [id number] ####[facility] (DEFAULT)[address] [place] [address] 52949 Chloride [Moles/Vol] 106 mmol/L Normal 101-111 [facility] Comment on above: Order Comment: I spo ke with Esther Bautista RN and had asked if 0600 blood work had be done at 0600. She said no that they can be done at morning blood work draws at 0430. 07/21/2022 04:08:38 EDT Performed By: #### 1 [id number], [id number], [id number] ####[facility] (DEFAULT)[address] [place] [address] 58487 CO2 [Moles/Vol] 25 mmol/L Normal 21-32 [facility] Comment on above: Order Comment: I spo ke with Esther Bautista RN and had asked if 0600 blood work had be done at 0600. She said no that they can be done at morning blood work draws at 0430. 07/21/2022 04:08:38 EDT Performed By: #### 1 [id number], [id number], [id number] ####[facility] (DEFAULT)[address] [place] [address] 52940 Creatinine [Mass/Vol] 1.35 mg/dL High 0.90-1.30 [facility] Comment on above: Order Comment: I spo ke with Esther Bautista RN and had asked if 0600 blood work had be done at 0600. She said no that they can be done at morning blood work draws at 0430. 07/21/2022 04:08:38 EDT Performed By: #### 1 [id number], [id number], [id number] ####[facility] (DEFAULT)[address] [place] [address] 82920 Glucose [Mass/Vol] 137.0 mg/dL High 74.0-118.0 [facility] Comment on above: Order Comment: I spo ke with Esther Bautista RN and had asked if 0600 blood work had be done at 0600. She said no that they can be done at morning blood work draws at 0430. 07/21/2022 04:08:38 EDT Performed By: #### 1 [id number], [id number], [id number] ####[facility] (DEFAULT)[address] [place] [address] 95569 Osmolality 291 mOsm/L Invalid Interpretation Code [facility] Comment on above: Order Comment: I spo ke with Esther Bautista RN and had asked if 0600 blood work had be done at 0600. She said no that they can be done at morning blood work draws at 0430. 07/21/2022 04:08:38 EDT Performed By: #### 1 [id number], [id number], [id number] ####[facility] (DEFAULT)[address] [place] [address] 48570 Potassium [Moles/Vol] 5.7 mmol/L High 3.6-5.1 [facility] Comment on above: Order Comment: I spo ke with Esther Bautista RN and had asked if 0600 blood work had be done at 0600. She said no that they can be done at morning blood work draws at 0430. 07/21/2022 04:08:38 EDT Performed By: #### 1 [id number], [id number], [id number] ####[facility] (DEFAULT)[address] [place] [address] 99595 Sodium [Moles/Vol] 136.0 mmol/L Normal 136.0-144.0 [facility] Comment on above: Order Comment: I spo ke with Esther Bautista RN and had asked if 0600 blood work had be done at 0600. She said no that they can be done at morning blood work draws at 0430. 07/21/2022 04:08:38 EDT Performed By: #### 1 [id number], [id number], [id number] ####[facility] (DEFAULT)[address] [place] [address] 18341 Urea nitrogen [Mass/Vol] 59 mg/dL High 8- [facility] Comment on above: Order Comment: I spo dianna with Esther Bautista RN and had asked if 0600 blood work had be done at 0600. She said no that they can be done at morning blood work draws at 0430. 07/21/2022 04:08:38 EDT Performed By: #### 1 [id number], [id number], [id number] ####[facility] (DEFAULT)[address] [place] [address] 46548 Urea nitrogen/Creatinine [Mass ratio] 44.0 mg/mg High 4.6-16.2 [facility] Comment on above: Order Comment: I spo dianna with Esther Bautista RN and had asked if 0600 blood work had be done at 0600. She said no that they can be done at morning blood work draws at 0430. 07/21/2022 04:08:38 EDT Performed By: #### 1 [id number], [id number], [id number] ####[facility] (DEFAULT)[address] [place] [address] 08907 CBC w/ Auto Diffon Erythrocyte distribution width (RBC) [Ratio] 13.3 % Normal 11.5-15.0 [facility] Comment on above: Order Comment: I spo ke with Esther Bautista RN and had asked if 0600 blood work had be done at 0600. She said no that they can be done at morning blood work draws at 0430. 07/21/2022 04:08:38 EDT Performed By: #### 1 [id number], [id number], [id number] ####[facility] (DEFAULT)[address] [place] [address] 86852 Hematocrit (Bld) [Volume fraction] 32.3 % Low 34.8-51.9 [facility] Comment on above: Order Comment: I spo ke with Esther Bautista RN and had asked if 0600 blood work had be done at 0600. She said no that they can be done at morning blood work draws at 0430. 07/21/2022 04:08:38 EDT Performed By: #### 1 [id number], [id number], [id number] ####[facility] (DEFAULT)[address] [place] [address] 76835 Hemoglobin (Bld) [Mass/Vol] 10.4 g/dL Low 11.8-17.7 [facility] Comment on above: Order Comment: I spo dianna with Esther Bautista RN and had asked if 0600 blood work had be done at 0600. She said no that they can be done at morning blood work draws at 0430. 07/21/2022 04:08:38 EDT Performed By: #### 1 [id number], [id number], [id number] ####[facility] (DEFAULT)[address] [place] [address] 77681 Instr WBC 8.6 x10 Invalid Interpretation Code [facility] Comment on above: Order Comment: I spo dianna with Esther Bautista RN and had asked if 0600 blood work had be done at 0600. She said no that they can be done at morning blood work draws at 0430. 07/21/2022 04:08:38 EDT Performed By: #### 1 [id number], [id number], [id number] ####[facility] (DEFAULT)[address] [place] [address] 98403 Man Diff? Auto Normal [facility] Comment on above: Order Comment: I spo dianna with Esther Bautista RN and had asked if 0600 blood work had be done at 0600. She said no that they can be done at morning blood work draws at 0430. 07/21/2022 04:08:38 EDT Performed By: #### 1 [id number], [id number], [id number] ####[facility] (DEFAULT)[address] [place] [address] 15780 MCH (RBC) [Entitic mass] 29 pg Normal 24-34 [facility] Comment on above: Order Comment: I jorge bustamante with Esther Bautista RN and had asked if 0600 blood work had be done at 0600. She said no that they can be done at morning blood work draws at 0430. 07/21/2022 04:08:38 EDT Performed By: #### 1 [id number], [id number], [id number] ####[facility] (DEFAULT)[address] [place] [address] 20495 MCHC (RBC) [Mass/Vol] 32 g/dL Normal 26-37 [facility] Comment on above: Order Comment: I jorge bustamante with Esther Bautista RN and had asked if 0600 blood work had be done at 0600. She said no that they can be done at morning blood work draws at 0430. 07/21/2022 04:08:38 EDT Performed By: #### 1 [id number], [id number], [id number] ####[facility] (DEFAULT)[address] [place] [address] 64852 MCV (RBC) [Entitic vol] 91 fL Normal 81-100 [facility] Comment on above: Order Comment: I jorge bustamante with Esther Bautista RN and had asked if 0600 blood work had be done at 0600. She said no that they can be done at morning blood work draws at 0430. 07/21/2022 04:08:38 EDT Performed By: #### 1 [id number], [id number], [id number] ####[facility] (DEFAULT)[address] [place] [address] 25034 Platelet 250 x10 Normal 138-427 [facility] Comment on above: Order Comment: I jorge bustamante with Esther Bautista RN and had asked if 0600 blood work had be done at 0600. She said no that they can be done at morning blood work draws at 0430. 07/21/2022 04:08:38 EDT Performed By: #### 1 [id number], [id number], [id number] ####[facility] (DEFAULT)[address] [place] [address] 55588 Platelet mean volume (Bld) [Entitic vol] 11.2 fL High 6.3-10.2 [facility] Comment on above: Order Comment: I spo ke with Esther Bautista RN and had asked if 0600 blood work had be done at 0600. She said no that they can be done at morning blood work draws at 0430. 07/21/2022 04:08:38 EDT Performed By: #### 1 [id number], [id number], [id number] ####[facility] (DEFAULT)[address] [place] [address] 28364 RBC 3.54 x10 Low 3.70-5.30 [facility] Comment on above: Order Comment: I spo ke with Esther Bautista RN and had asked if 0600 blood work had be done at 0600. She said no that they can be done at morning blood work draws at 0430. 07/21/2022 04:08:38 EDT Performed By: #### 1 [id number], [id number], [id number] ####[facility] (DEFAULT)[address] [place] [address] 60554 WBC 8.6 x10 Normal 3.5-10.5 [facility] Comment on above: Order Comment: I spo ke with Esther Bautista RN and had asked if 0600 blood work had be done at 0600. She said no that they can be done at morning blood work draws at 0430. 07/21/2022 04:08:38 EDT Performed By: #### 1 [id number], [id number], [id number] ####[facility] (DEFAULT)[address] [place] [address] 08895 Coding Summaryon 07-21-2022 Coding Summary Normal [facility] Nutrition Noteon 07-21-2022 Nutrition Note Normal [facility] POCT Glucose Levelon 022 Glucose [Mass/Vol] 360 mg/dL High 74-118 [facility] Comment on above: Performed By: #### 4 [id number] ####[facility] (DEFAULT)[address] [place] [address] 20525 Glucose [Mass/Vol] 274 mg/dL High 74-118 [facility] Comment on above: Performed By: #### 4 [id number] ####[facility] (DEFAULT)[address] [place] [address] Glucose [Mass/Vol] 128 mg/dL High 74-118 [facility] Comment on above: Performed By: #### 4 [id number] ####[facility] (DEFAULT)[address] [place] [address] US Kidney/Bladder Completeon 07-21-2022 US Kidney/Bladder Complete Normal [facility] .Auto Diff 1on 07-20-2022 Auto Victoria % 7 % Normal -12 [facility] Comment on above: Performed By: #### 1 [id number], [id number], [id number] ####[facility] (DEFAULT)[address] [place] [address] Baso Abs# 0.0 x10 Normal 0.0-0.2 [facility] Comment on above: Performed By: #### 1 [id number], [id number], [id number] ####[facility] (DEFAULT)[address] [place] [address] Basophils/100 WBC (Bld) 0.2 % Normal 0.2-2.0 [facility] Comment on above: Performed By: #### 1 [id number], [id number], [id number] ####[facility] (DEFAULT)[address] [place] [address] Eos Abs# 0.4 x10 Normal 0.0-0.4 [facility] Comment on above: Performed By: #### 1 [id number], [id number], [id number] ####[facility] (DEFAULT)[address] [place] [address] Eosinophils/100 WBC (Bld) 4.5 % High 0.9-4.0 [facility] Comment on above: Performed By: #### 1 [id number], [id number], [id number] ####[facility] (DEFAULT)[address] [place] [address] 41942 Lymph Abs# 3.3 x10 High 1.3-2.9 [facility] Comment on above: Performed By: #### 1 [id number], [id number], [id number] ####[facility] (DEFAULT)[address] [place] [address] 84274 Lymphocytes/100 WBC (Bld) 33 % Normal 14-48 [facility] Comment on above: Performed By: #### 1 [id number], [id number], [id number] ####[facility] (DEFAULT)[address] [place] [address] 54805 Victoria Abs# 0.7 x10 Normal 0.0-0.8 [facility] Comment on above: Performed By: #### 1 [id number], [id number], [id number] ####[facility] (DEFAULT)[address] [place] [address] 42397 Neut Abs# 5.5 x10 Normal 1.5-9.2 [facility] Comment on above: Performed By: #### 1 [id number], [id number], [id number] ####[facility] (DEFAULT)[address] [place] [address] 64786 Neutrophils/100 WBC (Bld) 55 % Normal 44-88 [facility] Comment on above: Performed By: #### 1 [id number], [id number], [id number] ####[facility] (DEFAULT)[address] [place] [address] 40422 BMP Standardon 07-20-2022 eGFR Non AA 44 mL/min/1.73m2 Invalid Interpretation Code [facility] Comment on above: Order Comment: I spo ke with Zahraa Saldivar RN on and asked if this blood work needs to be done at 0600 or if it can be done sooner. She said that it can be done sooner. 07/20/2022 04:10:20 EDT Performed By: #### 1 [id number], [id number], [id number] ####[facility] (DEFAULT)[address] [place] [address] 03739 eGFR AA 53 mL/min/1.73m2 Invalid Interpretation Code [facility] Comment on above: Order Comment: I spo ke with Zahraa Saldivar RN on [address] [place] [address] and asked if this blood work needs to be done at 0600 or if it can be done sooner. She said that it can be done sooner. 07/20/2022 04:10:20 EDT Result Comment: Hospice Care Transitions Coordinator lokesh Kidney disease could be indicated at eGFRs of less than 60 ml/min/1.73m2. Kidney Failure is indicated at less than 15 ml/min/1.73m2 Performed By: #### 1 [id number], [id number], [id number] ####[facility] (DEFAULT)[address] [place] [address] Anion gap [Moles/Vol] 12.0 mmol/L Normal 5.0-19.0 [facility] Comment on above: Order Comment: I spo ke with Zahraa Saldivar RN on [address] [place] [address] and asked if this blood work needs to be done at 0600 or if it can be done sooner. She said that it can be done sooner. 07/20/2022 04:10:20 EDT Performed By: #### 1 [id number], [id number], [id number] ####[facility] (DEFAULT)[address] [place] [address] 22872 Calcium [Mass/Vol] 9.1 mg/dL Normal 8.9-10.3 [facility] Comment on above: Order Comment: I spo ke with Zahraa Saldivar RN on [address] [place] [address] and asked if this blood work needs to be done at 0600 or if it can be done sooner. She said that it can be done sooner. 07/20/2022 04:10:20 EDT Performed By: #### 1 [id number], [id number], [id number] ####[facility] (DEFAULT)[address] [place] [address] Chloride [Moles/Vol] 104 mmol/L Normal 101-111 [facility] Comment on above: Order Comment: I spo ke with Zahraa Saldivar RN on [address] [place] [address] and asked if this blood work needs to be done at 0600 or if it can be done sooner. She said that it can be done sooner. 07/20/2022 04:10:20 EDT Performed By: #### 1 [id number], [id number], [id number] ####[facility] (DEFAULT)[address] [place] [address] 28987 CO2 [Moles/Vol] 24 mmol/L Normal 21-32 [facility] Comment on above: Order Comment: I spo ke with Zahraa Saldivar RN on [address] [place] [address] and asked if this blood work needs to be done at 0600 or if it can be done sooner. She said that it can be done sooner. 07/20/2022 04:10:20 EDT Performed By: #### 1 [id number], [id number], [id number] ####[facility] (DEFAULT)[address] [place] [address] 07772 Creatinine [Mass/Vol] 1.58 mg/dL High 0.90-1.30 [facility] Comment on above: Order Comment: I spo ke with Zahraa Saldivar RN on [address] [place] [address] and asked if this blood work needs to be done at 0600 or if it can be done sooner. She said that it can be done sooner. 07/20/2022 04:10:20 EDT Performed By: #### 1 [id number], [id number], [id number] ####[facility] (DEFAULT)[address] [place] [address] 51179 Glucose [Mass/Vol] 144.0 mg/dL High 74.0-118.0 [facility] Comment on above: Order Comment: I spo ke with Zahraa Saldivar RN on [address] [place] [address] and asked if this blood work needs to be done at 0600 or if it can be done sooner. She said that it can be done sooner. 07/20/2022 04:10:20 EDT Performed By: #### 1 [id number], [id number], [id number] ####[facility] [facility] (DEFAULT)[address] [place] [address] 25484 Osmolality 292 mOsm/L Invalid Interpretation Code [facility] Comment on above: Order Comment: I spo ke with Zahraa Saldivar RN on [address] [place] [address] and asked if this blood work needs to be done at 0600 or if it can be done sooner. She said that it can be done sooner. 07/20/2022 04:10:20 EDT Performed By: #### 1 [id number], [id number], [id number] ####[facility] (DEFAULT)[address] [place] [address] 93503 Potassium [Moles/Vol] 6.0 mmol/L High 3.6-5.1 [facility] Comment on above: Order Comment: I spo ke with Zahraa Saldivar RN on [address] [place] [address] and asked if this blood work needs to be done at 0600 or if it can be done sooner. She said that it can be done sooner. 07/20/2022 04:10:20 EDT Performed By: #### 1 [id number], [id number], [id number] ####[facility] (DEFAULT)[address] [place] [address] 31634 Sodium [Moles/Vol] 134.0 mmol/L Low 136.0-144.0 [facility] Comment on above: Order Comment: I spo ke with Zahraa Saldivar RN on [address] [place] [address] and asked if this blood work needs to be done at 0600 or if it can be done sooner. She said that it can be done sooner. 07/20/2022 04:10:20 EDT Performed By: #### 1 [id number], [id number], [id number] ####[facility] (DEFAULT)[address] [place] [address] 42167 Urea nitrogen [Mass/Vol] 71 mg/dL High 8-26 [facility] Comment on above: Order Comment: I spo ke with Zahraa Saldivar RN on [address] [place] [address] and asked if this blood work needs to be done at 0600 or if it can be done sooner. She said that it can be done sooner. 07/20/2022 04:10:20 EDT Performed By: #### 1 [id number], [id number], [id number] ####[facility] (DEFAULT)[address] [place] [address] 78398 Urea nitrogen/Creatinine [Mass ratio] 45.0 mg/mg High 4.6-16.2 [facility] Comment on above: Order Comment: I spo ke with Zahraa Saldivar RN on [address] [place] [address] and asked if this blood work needs to be done at 0600 or if it can be done sooner. She said that it can be done sooner. 07/20/2022 04:10:20 EDT Performed By: #### 1 [id number], [id number], [id number] ####[facility] (DEFAULT)[address] [place] [address] 14596 CBC w/ Auto Diffon Erythrocyte distribution width (RBC) [Ratio] 13.2 % Normal 11.5-15.0 [facility] Comment on above: Order Comment: I spo ke with Zahraa Saldivar RN on [address] [place] [address] and asked if this blood work needs to be done at 0600 or if it can be done sooner. She said that it can be done sooner. 07/20/2022 04:10:20 EDT Performed By: #### 1 [id number], [id number], [id number] ####[facility] (DEFAULT)[address] [place] [address] 14160 Hematocrit (Bld) [Volume fraction] 32.0 % Low 34.8-51.9 [facility] Comment on above: Order Comment: I spo ke with Zahraa Saldivar RN on [address] [place] [address] and asked if this blood work needs to be done at 0600 or if it can be done sooner. She said that it can be done sooner. 07/20/2022 04:10:20 EDT Performed By: #### 1 [id number], [id number], [id number] ####[facility] (DEFAULT)[address] [place] [address] 47482 Hemoglobin (Bld) [Mass/Vol] 10.2 g/dL Low 11.8-17.7 [facility] Comment on above: Order Comment: I spo ke with Zahraa Saldivar RN on [address] [place] [address] and asked if this blood work needs to be done at 0600 or if it can be done sooner. She said that it can be done sooner. 07/20/2022 04:10:20 EDT Performed By: #### 1 [id number], [id number], [id number] ####[facility] (DEFAULT)[address] [place] [address] 79040 Instr WBC 10.0 x10 Invalid Interpretation Code [facility] Comment on above: Order Comment: I spo ke with Zahraa Saldivar RN on [address] [place] [address] and asked if this blood work needs to be done at 0600 or if it can be done sooner. She said that it can be done sooner. 07/20/2022 04:10:20 EDT Performed By: #### 1 [id number], [id number], [id number] ####[facility] (DEFAULT)[address] [place] [address] 71930 Man Diff? Auto Normal [facility] Comment on above: Order Comment: I spo ke with Zahraa Saldivar RN on [address] [place] [address] and asked if this blood work needs to be done at 0600 or if it can be done sooner. She said that it can be done sooner. 07/20/2022 04:10:20 EDT Performed By: #### 1 [id number], [id number], [id number] ####[facility] (DEFAULT)[address] [place] [address] 07490 MCH (RBC) [Entitic mass] 29 pg Normal 24-34 [facility] Comment on above: Order Comment: I spo ke with Zahraa Saldivar RN on [address] [place] [address] and asked if this blood work needs to be done at 0600 or if it can be done sooner. She said that it can be done sooner. 07/20/2022 04:10:20 EDT Performed By: #### 1 [id number], [id number], [id number] ####[facility] (DEFAULT)[address] [place] [address] 91202 MCHC (RBC) [Mass/Vol] 32 g/dL Normal 26-37 [facility] Comment on above: Order Comment: I spo ke with Zahraa Saldivar RN on [address] [place] [address] and asked if this blood work needs to be done at 0600 or if it can be done sooner. She said that it can be done sooner. 07/20/2022 04:10:20 EDT Performed By: #### 1 [id number], [id number], [id number] ####[facility] (DEFAULT)[address] [place] [address] 18739 MCV (RBC) [Entitic vol] 90 fL Normal 81-100 [facility] Comment on above: Order Comment: I spo ke with Zahraa Salidvar RN on [address] [place] [address] and asked if this blood work needs to be done at 0600 or if it can be done sooner. She said that it can be done sooner. 07/20/2022 04:10:20 EDT Performed By: #### 1 [id number], [id number], [id number] ####[facility] (DEFAULT)[address] [place] [address] 07153 Platelet 235 x10 Normal 138-427 [facility] Comment on above: Order Comment: I spo ke with Zahraa Saldivar RN on [address] [place] [address] and asked if this blood work needs to be done at 0600 or if it can be done sooner. She said that it can be done sooner. 07/20/2022 04:10:20 EDT Performed By: #### 1 [id number], [id number], [id number] ####[facility] (DEFAULT)[address] [place] [address] 07524 Platelet mean volume (Bld) [Entitic vol] 12.3 fL High 6.3-10.2 [facility] Comment on above: Order Comment: I spo ke with Zahraa Saldivar RN on [address] [place] [address] and asked if this blood work needs to be done at 0600 or if it can be done sooner. She said that it can be done sooner. 07/20/2022 04:10:20 EDT Performed By: #### 1 [id number], [id number], [id number] ####[facility] (DEFAULT)[address] [place] [address] 54162 RBC 3.55 x10 Low 3.70-5.30 [facility] Comment on above: Order Comment: I spo ke with Zahraa Saldivar RN on [address] [place] [address] and asked if this blood work needs to be done at 0600 or if it can be done sooner. She said that it can be done sooner. 07/20/2022 04:10:20 EDT Performed By: #### 1 [id number], [id number], [id number] ####[facility] (DEFAULT)[address] [place] [address] 03111 WBC 10.0 x10 Normal 3.5-10.5 [facility] Comment on above: Order Comment: I spo ke with Zahraa Saldivar RN on and asked if this blood work needs to be done at 0600 or if it can be done sooner. She said that it can be done sooner. 07/20/2022 04:10:20 EDT Performed By: #### 1 [id number], [id number], [id number] ####[facility] (DEFAULT)[address] [place] [address] 54466 Glucoseon 07-20-2022 Glucose [Mass/Vol] 424.0 mg/dL High 74.0-118.0 [facility] Comment on above: Performed By: #### 2 [id number] ####[facility] (DEFAULT)[address] [place] [address] 11443 POCT Glucose Levelon 022 Glucose [Mass/Vol] 473 mg/dL Critically abnormal 74-118 [facility] Comment on above: Performed By: #### 4 [id number] ####[facility] (DEFAULT)[address] [place] [address] 76765 Glucose [Mass/Vol] 522 mg/dL Critically abnormal [address] [place] [address] Comment on above: Performed By: #### 4 [id number] ####[facility] (DEFAULT)[address] [place] [address] 82252 Glucose [Mass/Vol] 292 mg/dL High 74-118 [facility] Comment on above: Performed By: #### 4 [id number] ####[facility] (DEFAULT)[address] [place] [address] 41033 Glucose [Mass/Vol] 293 mg/dL High 74-118 [facility] Comment on above: Performed By: #### 4 [id number] ####[facility] (DEFAULT)[address] [place] [address] 68550 Glucose [Mass/Vol] 110 mg/dL Normal [address] [place] [address] Comment on above: Performed By: #### 4 [id number] ####[facility] (DEFAULT)[address] [place] [address] Glucose [Mass/Vol] 137 mg/dL High 74-118 [facility] Comment on above: Performed By: #### 4 [id number] ####[facility] (DEFAULT)[address] [place] [address] Progress Note - Nurseon 10- Progress Note - Nurse Normal [facility] .Auto Diff 1on 07-19-2022 Auto Victoria % 8 % Normal -12 [facility] Comment on above: Performed By: #### 1 [id number], [id number], [id number] ####[facility] (DEFAULT)[address] [place] [address] Baso Abs# 0.0 x10 Normal 0.0-0.2 [facility] Comment on above: Performed By: #### 1 [id number], [id number], [id number] ####[facility] (DEFAULT)[address] [place] [address] Basophils/100 WBC (Bld) 0.2 % Normal 0.2-2.0 [facility] Comment on above: Performed By: #### 1 [id number], [id number], [id number] ####[facility] (DEFAULT)[address] [place] [address] Eos Abs# 0.6 x10 High 0.0-0.4 [facility] Comment on above: Performed By: #### 1 [id number], [id number], [id number] ####[facility] (DEFAULT)[address] [place] [address] Eosinophils/100 WBC (Bld) 4.6 % High 0.9-4.0 [facility] Comment on above: Performed By: #### 1 [id number], 3143819, [id number] ####[facility] (DEFAULT)[address] [place] [address] Lymph Abs# 3.2 x10 High 1.3-2.9 [facility] Comment on above: Performed By: #### 1 [id number], [id number], [id number] ####[facility] (DEFAULT)[address] [place] [address] 77189 Lymphocytes/100 WBC (Bld) 27 % Normal 14-48 [facility] Comment on above: Performed By: #### 1 [id number], [id number], [id number] ####[facility] (DEFAULT)[address] [place] [address] 12815 Victoria Abs# 0.9 x10 High 0.0-0.8 [facility] Comment on above: Performed By: #### 1 [id number], [id number], [id number] ####[facility] (DEFAULT)[address] [place] [address] Neut Abs# 7.3 x10 Normal 1.5-9.2 [facility] Comment on above: Performed By: #### 1 [id number], 6899611, [id number] ####[facility] (DEFAULT)[address] [place] [address] 15656 Neutrophils/100 WBC (Bld) 61 % Normal 44-88 [facility] Comment on above: Performed By: #### 1 [id number], 4578348, [id number] ####[facility] (DEFAULT)[address] [place] [address] Standardon 07-19-2022 eGFR Non AA 37 mL/min/1.73m2 Invalid Interpretation Code [facility] Comment on above: Performed By: #### 1 [id number], [id number], [id number] ####[facility] (DEFAULT)[address] [place] [address] eGFR AA 45 mL/min/1.73m2 Invalid Interpretation Code [facility] Comment on above: Result Comment: Hospice Care Transitions Coordinator lokesh Kidney disease could be indicated at eGFRs of less than 60 ml/min/1.73m2. Kidney Failure is indicated at less than 15 ml/min/1.73m2 Performed By: #### 1 [id number], 6133899, [id number] ####[facility] (DEFAULT)[address] [place] [address] 45647 Anion gap [Moles/Vol] 16.0 mmol/L Normal 5.0-19.0 [facility] Comment on above: Performed By: #### 1 [id number], 1783708, [id number] ####[facility] (DEFAULT)[address] [place] [address] 38879 Calcium [Mass/Vol] 9.0 mg/dL Normal 8.9-10.3 [facility] Comment on above: Performed By: #### 1 [id number], 7016264, [id number] ####[facility] (DEFAULT)[address] [place] [address] 43345 Chloride [Moles/Vol] 102 mmol/L Normal 101-111 [facility] Comment on above: Performed By: #### 1 [id number], 2207766, [id number] ####[facility] (DEFAULT)[address] [place] [address] 08598 CO2 [Moles/Vol] 21 mmol/L Normal 21-32 [facility] Comment on above: Performed By: #### 1 [id number], 7944019, [id number] ####[facility] (DEFAULT)[address] [place] [address] 77899 Creatinine [Mass/Vol] 1.83 mg/dL High 0.90-1.30 [facility] Comment on above: Performed By: #### 1 [id number], 5338658, [id number] ####[facility] (DEFAULT)[address] [place] [address] 70763 Glucose [Mass/Vol] 180.0 mg/dL High 74.0-118.0 [facility] Comment on above: Performed By: #### 1 [id number], 1933014, [id number] ####[facility] (DEFAULT)[address] [place] [address] 65578 Osmolality 294 mOsm/L Invalid Interpretation Code [facility] Comment on above: Performed By: #### 1 [id number], 5388136, [id number] ####[facility] (DEFAULT)[address] [place] [address] 23217 Potassium [Moles/Vol] 6.1 mmol/L High 3.6-5.1 [facility] Comment on above: Performed By: #### 1 [id number], 6821448, [id number] ####[facility] (DEFAULT)[address] [place] [address] 43471 Sodium [Moles/Vol] 133.0 mmol/L Low 136.0-144.0 [facility] Comment on above: Performed By: #### 1 [id number], 3903476, [id number] ####[facility] (DEFAULT)[address] [place] [address] 12667 Urea nitrogen [Mass/Vol] 76 mg/dL High 8-26 [facility] Comment on above: Performed By: #### 1 [id number], 8130807, [id number] ####[facility] (DEFAULT)[address] [place] [address] 78435 Urea nitrogen/Creatinine [Mass ratio] 42.0 mg/mg High 4.6-16.2 [facility] Comment on above: Performed By: #### 1 [id number], 2275403, [id number] ####[facility] (DEFAULT)[address] [place] [address] 75056 CBC w/ Auto Diffon - 2 Erythrocyte distribution width (RBC) [Ratio] 13.2 % Normal 11.5-15.0 [facility] Comment on above: Performed By: #### 1 [id number], 4755539, [id number] ####[facility] (DEFAULT)[address] [place] [address] 63349 Hematocrit (Bld) [Volume fraction] 35.5 % Normal 34.8-51.9 [facility] Comment on above: Performed By: #### 1 6123042, 4370223, [id number] ####[facility] (DEFAULT)[address] [place] [address] 34178 Hemoglobin (Bld) [Mass/Vol] 11.5 g/dL Low 11.8-17.7 [facility] Comment on above: Performed By: #### 1 [id number], 7351221, [id number] ####[facility] (DEFAULT)[address] [place] [address] 43903 Instr WBC 12.1 x10 Invalid Interpretation Code [facility] Comment on above: Performed By: #### 1 [id number], 3576406, [id number] ####[facility] (DEFAULT)[address] [place] [address] 02197 Man Diff? Auto Normal [facility] Comment on above: Performed By: #### 1 [id number], 8577969, [id number] ####[facility] (DEFAULT)[address] [place] [address] 41493 MCH (RBC) [Entitic mass] 29 pg Normal 24-34 [facility] Comment on above: Performed By: #### 1 [id number], 5077631, [id number] ####[facility] (DEFAULT)[address] [place] [address] 52179 MCHC (RBC) [Mass/Vol] 32 g/dL Normal 26-37 [facility] Comment on above: Performed By: #### 1 [id number], 5371669, [id number] ####[facility] (DEFAULT)[address] [place] [address] 79753 MCV (RBC) [Entitic vol] 90 fL Normal 81-100 [facility] Comment on above: Performed By: #### 1 [id number], 0653700, [id number] ####[facility] (DEFAULT)[address] [place] [address] 10828 Platelet 182 x10 Normal 138-427 [facility] Comment on above: Performed By: #### 1 [id number], 0815813, [id number] ####[facility] (DEFAULT)[address] [place] [address] 68959 Platelet mean volume (Bld) [Entitic vol] 12.3 fL High 6.3-10.2 [facility] Comment on above: Performed By: #### 1 4708973, 2181173, [id number] ####[facility] (DEFAULT)[address] [place] [address] 02837 RBC 3.93 x10 Normal 3.70-5.30 [facility] Comment on above: Performed By: #### 1 8515745, 1372867, [id number] ####[facility] (DEFAULT)[address] [place] [address] 87869 WBC 12.1 x10 High 3.5-10.5 [facility] Comment on above: Performed By: #### 1 [id number], 2921764, [id number] ####[facility] (DEFAULT)[address] [place] [address] 12896 Glucoseon 07-19-2022 Glucose [Mass/Vol] 388.0 mg/dL High 74.0-118.0 [facility] Comment on above: Performed By: #### 2 [id number] ####[facility] (DEFAULT)[address] [place] [address] 18823 POCT Glucose Levelon 022 Glucose [Mass/Vol] 215 mg/dL High 74-118 [facility] Comment on above: Performed By: #### 4 [id number] ####[facility] (DEFAULT)[address] [place] [address] 83055 Glucose [Mass/Vol] 234 mg/dL High 74118 [facility] Comment on above: Performed By: #### 4 [id number] ####[facility] (DEFAULT)[address] [place] [address] 47008 Glucose [Mass/Vol] 318 mg/dL High 74-118 [facility] Comment on above: Performed By: #### 4 [id number] ####[facility] (DEFAULT)[address] [place] [address] 46519 Glucose [Mass/Vol] 452 mg/dL Critically abnormal [address] [place] [address] Comment on above: Performed By: #### 4 [id number] ####[facility] (DEFAULT)[address] [place] [address] 47556 Glucose [Mass/Vol] 444 mg/dL Critically abnormal [address] [place] [address] Comment on above: Performed By: #### 4 [id number] ####[facility] (DEFAULT)[address] [place] [address] 51192 Glucose [Mass/Vol] 186 mg/dL High [address] Comment on above: Performed By: #### 4 [id number] ####[facility] (DEFAULT)[address] [place] [address] 68776 Pharmacy Noteon 07-19-2022 Pharmacy Note Normal [facility] UA w Culture if Ind Standard on 07-19-2022 Breakpoint UA Normal [facility] Comment on above: Performed By: #### 1 [id number] ####[facility] (DEFAULT)[address] [place] [address] Color (U) Yellow Normal [facility] Comment on above: Performed By: #### 1 [id number] ####[facility] (DEFAULT)[address] [place] [address] Culture? Not Indicated Invalid Interpretation Code [facility] Comment on above: Result Comment: Resu lt created by rule GL_MAGR_ADD_UA_CULT1 Performed By: #### 1 [id number] ####[facility] (DEFAULT)[address] [place] [address] Glucose (U) [Mass/Vol] 100 mg/dL Normal [facility] Comment on above: Performed By: #### 1 [id number] ####[facility] (DEFAULT)[address] [place] [address] Ketones Ql (U) TRACE [facility] Comment on above: Performed By: #### 1 [id number] ####[facility] (DEFAULT)[address] [place] [address] Micro? Not Indicated Invalid Interpretation Code [facility] Comment on above: Result Comment: Resu lt created by rule GL_MAGR_ADD_UA_MICRO Performed By: #### 1 [id number] ####[facility] (DEFAULT)[address] [place] [address] UA Bilirubin Negative Normal [facility] Comment on above: Performed By: #### 1 [id number] ####[facility] (DEFAULT)[address] [place] [address] UA Blood Negative Normal NEGATIVE [facility] Comment on above: Performed By: #### 1 [id number] ####[facility] (DEFAULT)[address] [place] [address] 15625 UA Clarity CLEAR Normal CLEAR [facility] Comment on above: Performed By: #### 1 [id number] ####[facility] (DEFAULT)[address] [place] [address] 29679 UA Leuk Est Negative Normal NEGATIVE [facility] Comment on above: Performed By: #### 1 [id number] ####[facility] (DEFAULT)[address] [place] [address] 87669 UA Nitrite Negative Normal NEGATIVE [facility] Comment on above: Performed By: #### 1 [id number] ####[facility] (DEFAULT)[address] [place] [address] UA pH 5.5 Normal 5-8 [facility] Comment on above: Performed By: #### 1 [id number] ####[facility] (DEFAULT)[address] [place] [address] UA Protein Negative Normal NEGATIVE [facility] Comment on above: Performed By: #### 1 [id number] ####[facility] (DEFAULT)[address] [place] [address] UA Spec Grav 1.015 Normal 1.001-1.035 [facility] Comment on above: Performed By: #### 1 [id number] ####[facility] (DEFAULT)[address] [place] [address] UA Urobilinogen 0.2 mg/dL Normal 0.2-1.0 [facility] Comment on above: Performed By: #### 1 [id number] ####[facility] (DEFAULT)[address] [place] [address] Urine Source Clean Catch Normal [facility] Comment on above: Performed By: #### 1 [id number] ####[facility] (DEFAULT)[address] [place] [address] XR Abdomen Single View (KUB) on 07-19-2022 XR Abdomen Single View (KUB) Normal [facility] Nutrition Noteon 07-18-2022 Nutrition Note Normal [facility] POCT Glucose Levelon 022 Glucose [Mass/Vol] 350 mg/dL High 74-118 [facility] Comment on above: Performed By: #### 4 [id number] ####[facility] (DEFAULT)[address] [place] [address] Glucose [Mass/Vol] 366 mg/dL High 74-118 [facility] Comment on above: Performed By: #### 4 [id number] ####[facility] (DEFAULT)[address] [place] [address] 34225 Glucose [Mass/Vol] 383 mg/dL High [address] [place] [address] Comment on above: Performed By: #### 4 [id number] ####[facility] (DEFAULT)[address] [place] [address] 39399 Glucose [Mass/Vol] 112 mg/dL Normal [address] [place] [address] Comment on above: Performed By: #### 4 [id number] ####[facility] (DEFAULT)[address] [place] [address] 26532 Glucose [Mass/Vol] 109 mg/dL Normal [address] [place] [address] Comment on above: Performed By: #### 4 [id number] ####[facility] (DEFAULT)[address] [place] [address] 76503 Glucose [Mass/Vol] 136 mg/dL High [address] [place] [address] Comment on above: Performed By: #### 4 [id number] ####[facility] (DEFAULT)[address] [place] [address] 08846 Consent Formson 07-17-2022 Consent Forms [phone] 00 [id number]#1.0 0OTGTIFF [facility] POCT Glucose Levelon 022 Glucose [Mass/Vol] 327 mg/dL High [address] [place] [address] Comment on above: Performed By: #### 4 [id number] ####[facility] (DEFAULT)[address] [place] [address] 56276 Glucose [Mass/Vol] 220 mg/dL High [address] [place] [address] Comment on above: Performed By: #### 4 [id number] ####[facility] (DEFAULT)[address] [place] [address] 27501 Glucose [Mass/Vol] 245 mg/dL High [address] [place] [address] Comment on above: Performed By: #### 4 [id number] ####[facility] (DEFAULT)[address] [place] [address] 07350 Glucose [Mass/Vol] 81 mg/dL Normal [address] [place] [address] Comment on above: Performed By: #### 4 [id number] ####[facility] (DEFAULT)[address] [place] [address] 12588 Glucose [Mass/Vol] 49 mg/dL Critically abnormal [address] [place] [address] Comment on above: Performed By: #### 4 [id number] ####[facility] (DEFAULT)[address] [place] [address] 56033 Telemetry Stripson 2 Telemetry Strips [id number]#1.00 OTGTIFF Normal [facility] Coding Queryon 07-16-2022 Coding Query Normal [facility] Glucoseon 07-16-2022 Glucose [Mass/Vol] 402.0 mg/dL High 74.0-118.0 [facility] Comment on above: Performed By: #### 2 [id number] ####[facility] (DEFAULT)[address] [place] [address] 49999 Nutrition Noteon 07-16-2022 Nutrition Note Normal [facility] POCT Glucose Levelon 022 Glucose [Mass/Vol] 455 mg/dL Critically abnormal [address] [place] [address] Comment on above: Performed By: #### 4 [id number] ####[facility] (DEFAULT)[address] [place] [address] 09361 Glucose [Mass/Vol] 422 mg/dL Critically abnormal [address] [place] [address] Comment on above: Performed By: #### 4 [id number] ####[facility] (DEFAULT)[address] [place] [address] 54381 Glucose [Mass/Vol] 290 mg/dL High [address] [place] [address] Comment on above: Performed By: #### 4 [id number] ####[facility] (DEFAULT)[address] [place] [address] 69751 Glucose [Mass/Vol] 313 mg/dL High [address] [place] [address] Comment on above: Performed By: #### 4 [id number] ####[facility] (DEFAULT)[address] [place] [address] Glucose [Mass/Vol] 196 mg/dL High 74-118 [facility] Comment on above: Performed By: #### 4 [id number] ####[facility] (DEFAULT)[address] [place] [address] Provider Orderson 07-16-2022 Provider Orders [id number] 00 [id number]#1.0 0OTGTIFF Normal [facility] Telemetry Stripson 2 Telemetry Strips [id number] 00 [id number]#1.0 0OTGTIFF Normal [facility] .Auto Diff 1on 07-15-2022 Auto Victoria % 6 % Normal 10-16 [facility] Comment on above: Performed By: #### 1 [id number], 5194563, 4784381, 76824344 ####[facility] (DEFAULT)[address] [place] [address] Baso Abs# 0.0 x10 Normal 0.0-0.2 [facility] Comment on above: Performed By: #### 1 [id number], 4964749, 2672702, 78255564 ####[facility] (DEFAULT)[address] [place] [address] Basophils/100 WBC (Bld) 0.2 % Normal 0.2-2.0 [facility] Comment on above: Performed By: #### 1 [id number], 7613731, 1626772, 69148598 ####[facility] (DEFAULT)[address] [place] [address] Eos Abs# 0.6 x10 High 0.0-0.4 [facility] Comment on above: Performed By: #### 1 [id number], 6410769, 6921002, 73662110 ####[facility] (DEFAULT)[address] [place] [address] Eosinophils/100 WBC (Bld) 6.5 % High 0.9-4.0 [facility] Comment on above: Performed By: #### 1 [id number], 5867378, 7258876, 00042373 ####[facility] (DEFAULT)[address] [place] [address] Lymph Abs# 3.5 x10 High 1.3-2.9 [facility] Comment on above: Performed By: #### 1 [id number], 7664164, 5207871, 93403719 ####[facility] (DEFAULT)[address] [place] [address] Lymphocytes/100 WBC (Bld) 39 % Normal 14-48 [facility] Comment on above: Performed By: #### 1 [id number], 8045879, 0872909, 53449754 ####[facility] (DEFAULT)[address] [place] [address] Victoria Abs# 0.6 x10 Normal 0.0-0.8 [facility] Comment on above: Performed By: #### 1 [id number], 9507188, 1419861, 78826728 ####[facility] (DEFAULT)[address] [place] [address] Neut Abs# 4.2 x10 Normal 1.5-9.2 [facility] Comment on above: Performed By: #### 1 982469000, 4863813, 4672788, 11559527 ####[facility] (DEFAULT)[address] [place] [address] Neutrophils/100 WBC (Bld) 47 % Normal 44-88 [facility] Comment on above: Performed By: #### 1 939082336, 3501778, 6138101, 08345619 ####[facility] (DEFAULT)[address] [place] [address] CBC w/ Auto Diffon 2 Erythrocyte distribution width (RBC) [Ratio] 13.2 % Normal 11.5-15.0 [facility] Comment on above: Performed By: #### 1 [id number], 1105797, 7711183, 98231820 ####[facility] (DEFAULT)[address] [place] [address] Hematocrit (Bld) [Volume fraction] 35.0 % Normal 34.8-51.9 [facility] Comment on above: Performed By: #### 1 216227912, 8885815, 1779069, 72985062 ####[facility] (DEFAULT)[address] [place] [address] Hemoglobin (Bld) [Mass/Vol] 11.3 g/dL Low 11.8-17.7 [facility] Comment on above: Performed By: #### 1 [id number], 5995508, 4724249, 99510746 ####[facility] (DEFAULT)[address] [place] [address] Instr WBC 8.9 x10 Invalid Interpretation Code [facility] Comment on above: Performed By: #### 1 [id number], 6531264, 0746292, 58636349 ####[facility] (DEFAULT)[address] [place] [address] Man Diff? Auto Normal [facility] Comment on above: Performed By: #### 1 777654320, 8448169, 6000667, 04610029 ####[facility] (DEFAULT)[address] [place] [address] 05580 MCH (RBC) [Entitic mass] 29 pg Normal 24-34 [facility] Comment on above: Performed By: #### 1 [id number], 4269563, 7188647, 33261034 ####[facility] (DEFAULT)[address] [place] [address] 48624 MCHC (RBC) [Mass/Vol] 32 g/dL Normal 26-37 [facility] Comment on above: Performed By: #### 1 [id number], 5861374, 8498136, 62888743 ####[facility] (DEFAULT)[address] [place] [address] 45937 MCV (RBC) [Entitic vol] 90 fL Normal 81-100 [facility] Comment on above: Performed By: #### 1 [id number], 9557772, 9488643, 12388242 ####[facility] (DEFAULT)[address] [place] [address] 08256 Platelet 228 x10 Normal 138-427 [facility] Comment on above: Performed By: #### 1 049717863, 2839630, 6538389, 16979954 ####[facility] (DEFAULT)[address] [place] [address] Platelet mean volume (Bld) [Entitic vol] 11.4 fL High 6.3-10.2 [facility] Comment on above: Performed By: #### 1 [id number], 9614784, 0827915, 82130122 ####[facility] (DEFAULT)[address] [place] [address] RBC 3.91 x10 Normal 3.70-5.30 [facility] Comment on above: Performed By: #### 1 [id number], 8223694, 3156597, 66649393 ####[facility] (DEFAULT)[address] [place] [address] WBC 8.9 x10 Normal 3.5-10.5 [facility] Comment on above: Performed By: #### 1 146885197, 9878741, 1255195, 41737647 ####[facility] (DEFAULT)[address] [place] [address] Standardon 07-15-2022 eGFR Non AA 60 mL/min/1.73m2 Invalid Interpretation Code [facility] Comment on above: Performed By: #### 1 [id number], 6353580, 5975346, 21086144 ####[facility] (DEFAULT)[address] [place] [address] eGFR AA >60 Invalid Interpretation Code [facility] Comment on above: Result Comment: Hospice Care Transitions Coordinator lokesh Kidney disease could be indicated at eGFRs of less than 60 ml/min/1.73m2. Kidney Failure is indicated at less than 15 ml/min/1.73m2 Performed By: #### 1 [id number], 9029470, 7873744, 64362058 ####[facility] (DEFAULT)[address] [place] [address] Albumin [Mass/Vol] 3.4 g/dL Low 3.5-5.0 [facility] Comment on above: Performed By: #### 1 694290982, 1787778, 8213057, 96667408 ####[facility] (DEFAULT)[address] [place] [address] Albumin/Globulin [Mass ratio] 1.0 {ratio} Low 1.4-2.6 [facility] Comment on above: Performed By: #### 1 073762177, 3485410, 2696913, 03410072 ####[facility] (DEFAULT)[address] [place] [address] 09041 Alk Phos 57 IU/L Normal 32-91 [facility] Comment on above: Performed By: #### 1 150091951, 5264126, 7612843, 84749847 ####[facility] (DEFAULT)[address] [place] [address] 76488 ALT [Catalytic activity/Vol] 30.0 U/L Normal 17.0-63.0 [facility] Comment on above: Performed By: #### 1 608873857, 5692418, 4259945, 98199188 ####[facility] (DEFAULT)[address] [place] [address] 41172 Anion gap [Moles/Vol] 13.0 mmol/L Normal 5.0-19.0 [facility] Comment on above: Performed By: #### 1 105697662, 8939345, 0050004, 96390618 ####[facility] (DEFAULT)[address] [place] [address] 79836 AST [Catalytic activity/Vol] 19 U/L Normal 15-41 [facility] Comment on above: Performed By: #### 1 939162668, 7316512, 0257002, 86994376 ####[facility] (DEFAULT)[address] [place] [address] 40904 Bili Total 0.7 mg/dL Normal 0.3-1.2 [facility] Comment on above: Performed By: #### 1 083967755, 7447164, 9576149, 15501684 ####[facility] (DEFAULT)[address] [place] [address] 26546 Calcium [Mass/Vol] 9.3 mg/dL Normal 8.9-10.3 [facility] Comment on above: Performed By: #### 1 [id number], 9137537, 9121233, 53048756 ####[facility] (DEFAULT)[address] [place] [address] 64205 Chloride [Moles/Vol] 101 mmol/L Normal 101-111 [facility] Comment on above: Performed By: #### 1 [id number], 9642426, 3427648, 96618122 ####[facility] (DEFAULT)[address] [place] [address] 61007 CO2 [Moles/Vol] 24 mmol/L Normal 21-32 [facility] Comment on above: Performed By: #### 1 662970556, 5666728, 4761349, 74457017 ####[facility] (DEFAULT)[address] [place] [address] 93618 Creatinine [Mass/Vol] 1.20 mg/dL Normal 0.90-1.30 [facility] Comment on above: Performed By: #### 1 411160696, 7232545, 8543307, 36735590 ####[facility] (DEFAULT)[address] [place] [address] 35087 Globulin (S) [Mass/Vol] 3.4 g/dL Normal 1.5-4.3 [facility] Comment on above: Performed By: #### 1 060603511, 2924973, 5828541, 88354928 ####[facility] (DEFAULT)[address] [place] [address] 24833 Glucose [Mass/Vol] 184.0 mg/dL High 74.0-118.0 [facility] Comment on above: Performed By: #### 1 688251233, 0385371, 9422245, 24307217 ####[facility] (DEFAULT)[address] [place] [address] 90031 Osmolality 286 mOsm/L Invalid Interpretation Code [facility] Comment on above: Performed By: #### 1 [id number], 2046062, 4810637, 27905693 ####[facility] (DEFAULT)[address] [place] [address] 08215 Potassium [Moles/Vol] 4.1 mmol/L Normal 3.6-5.1 [facility] Comment on above: Performed By: #### 1 947416993, 5306509, 2316677, 55652698 ####[facility] (DEFAULT)[address] [place] [address] 56421 Protein [Mass/Vol] 6.8 g/dL Normal 6.5-8.1 [facility] Comment on above: Performed By: #### 1 856997663, 6252788, 9486703, 79521060 ####[facility] (DEFAULT)[address] [place] [address] 72286 Sodium [Moles/Vol] 134.0 mmol/L Low 136.0-144.0 [facility] Comment on above: Performed By: #### 1 421249399, 4671798, 6566886, 56509311 ####[facility] (DEFAULT)[address] [place] [address] 40839 Urea nitrogen [Mass/Vol] 50 mg/dL High 05-30 [facility] Comment on above: Performed By: #### 1 297837150, 8740255, 2771179, 72909258 ####[facility] (DEFAULT)[address] [place] [address] 98377 Urea nitrogen/Creatinine [Mass ratio] 42.0 mg/mg High 4.6-16.2 [facility] Comment on above: Performed By: #### 1 793056343, 9474259, 7780009, 84146062 ####[facility] (DEFAULT)[address] [place] [address] 32770 Magnesiumon 07-15-2022 Magnesium [Mass/Vol] 1.99 mg/dL Normal 1.80-2.50 [facility] Comment on above: Performed By: #### 1 [id number], 8571943, 8556252, 07072592 ####[facility] (DEFAULT)[address] [place] [address] 20446 POCT Glucose Levelon 022 Glucose [Mass/Vol] 305 mg/dL High [address] Comment on above: Performed By: #### 4 [id number] ####[facility] (DEFAULT)[address] [place] [address] 67394 Glucose [Mass/Vol] 267 mg/dL High 74[address] [facility] Comment on above: Performed By: #### 4 [id number] ####[facility] (DEFAULT)[address] [place] [address] Glucose [Mass/Vol] 223 mg/dL High 74-118 [facility] Comment on above: Performed By: #### 4 925704917 ####[facility] (DEFAULT)[address] [place] [address] Glucose [Mass/Vol] 188 mg/dL High 74-118 [facility] Comment on above: Performed By: #### 4 [id number] ####[facility] (DEFAULT)[address] [place] [address] Telemetry Stripson Telemetry Strips [id number]#1.00 OTGTIFF Normal [facility] XR Swallowing Functionon XR Swallowing Function Normal [facility] Comment on above: Order Comment: modif ied swallow study .Auto Diff 1on 07-14-2022 Auto Victoria % 7 % Normal 1-12 [facility] Comment on above: Performed By: #### 7 480686, 27781582, 7339840, 8535681068 ####[facility] (DEFAULT)[address] [place] [address] Baso Abs# 0.0 x10 Normal 0.0-0.2 [facility] Comment on above: Performed By: #### 7 760404, 46560522, 3241425, 4609924709 ####[facility] (DEFAULT)[address] [place] [address] Basophils/100 WBC (Bld) 0.2 % Normal 0.2-2.0 [facility] Comment on above: Performed By: #### 7 656469, 79208166, 1608549, 2182909364 ####[facility] (DEFAULT)[address] [place] [address] Eos Abs# 0.5 x10 High 0.0-0.4 [facility] Comment on above: Performed By: #### 7 334035, 63734074, 9392816, 8037005865 ####[facility] (DEFAULT)[address] [place] [address] Eosinophils/100 WBC (Bld) 5.3 % High 0.9-4.0 [facility] Comment on above: Performed By: #### 7 274327, 97675832, 8821418, 1811091201 ####[facility] (DEFAULT)[address] [place] [address] Lymph Abs# 3.2 x10 High 1.3-2.9 [facility] Comment on above: Performed By: #### 7 224374, 00110933, 8028674, 4276250183 ####[facility] (DEFAULT)[address] [place] [address] Lymphocytes/100 WBC (Bld) 35 % Normal 14-48 [facility] Comment on above: Performed By: #### 7 431524, 81618650, 2734364, 1510260992 ####[facility] (DEFAULT)[address] [place] [address] Victoria Abs# 0.6 x10 Normal 0.0-0.8 [facility] Comment on above: Performed By: #### 7 131605, 20425728, 6406443, 7731070023 ####[facility] (DEFAULT)[address] [place] [address] Neut Abs# 4.8 x10 Normal 1.5-9.2 [facility] Comment on above: Performed By: #### 7 160923, 78740223, 2071924, 5225675020 ####[facility] (DEFAULT)[address] [place] [address] Neutrophils/100 WBC (Bld) 53 % Normal 44-88 [facility] Comment on above: Performed By: #### 7 682599, 77844705, 8317355, 1025117597 ####[facility] (DEFAULT)[address] [place] [address] Ambulance Noteon 07-14-2022 Ambulance Note [id number]#1.00 OTGTIFF Normal [facility] CBC w/ Auto Diffon Erythrocyte distribution width (RBC) [Ratio] 13.1 % Normal 11.5-15.0 [facility] Comment on above: Performed By: #### 7 375949, 41701273, 5983473, 6072143056 ####[facility] (DEFAULT)[address] [place] [address] Hematocrit (Bld) [Volume fraction] 35.1 % Normal 34.8-51.9 [facility] Comment on above: Performed By: #### 7 803948, 43528821, 7907104, 4525043208 ####[facility] (DEFAULT)[address] [place] [address] Hemoglobin (Bld) [Mass/Vol] 11.4 g/dL Low 11.8-17.7 [facility] Comment on above: Performed By: #### 7 216279, 83007127, 1336757, 4992136558 ####[facility] (DEFAULT)[address] [place] [address] Instr WBC 9.2 x10 Invalid Interpretation Code [facility] Comment on above: Performed By: #### 7 335171, 50192653, 6201608, 3130341130 ####[facility] (DEFAULT)[address] [place] [address] Man Diff? Auto Normal [facility] Comment on above: Performed By: #### 7 884564, 06099290, 3942848, 9765153272 ####[facility] (DEFAULT)[address] [place] [address] 14243 MCH (RBC) [Entitic mass] 29 pg Normal 24-34 [facility] Comment on above: Performed By: #### 7 540099, 15807756, 3986934, 2113171903 ####[facility] (DEFAULT)[address] [place] [address] 82877 MCHC (RBC) [Mass/Vol] 32 g/dL Normal 26-37 [facility] Comment on above: Performed By: #### 7 604806, 61836746, 5526473, 5894948637 ####[facility] (DEFAULT)[address] [place] [address] MCV (RBC) [Entitic vol] 90 fL Normal 81-100 [facility] Comment on above: Performed By: #### 7 005468, 53692455, 7724789, 1538708584 ####[facility] (DEFAULT)[address] [place] [address] Platelet 233 x10 Normal 138-427 [facility] Comment on above: Performed By: #### 7 842133, 35949537, 9441889, 1624764672 ####[facility] (DEFAULT)[address] [place] [address] Platelet mean volume (Bld) [Entitic vol] 11.8 fL High 6.3-10.2 [facility] Comment on above: Performed By: #### 7 961680, 22924935, 0464901, 7391959515 ####[facility] (DEFAULT)[address] [place] [address] RBC 3.92 x10 Normal 3.70-5.30 [facility] Comment on above: Performed By: #### 7 972408, 05092294, 2823561, 6829887732 ####[facility] (DEFAULT)[address] [place] [address] WBC 9.2 x10 Normal 3.5-10.5 [facility] Comment on above: Performed By: #### 7 850166, 57761297, 2462621, 2036667211 ####[facility] (DEFAULT)[address] [place] [address] Standardon 07-14-2022 eGFR Non AA 56 mL/min/1.73m2 Invalid Interpretation Code [facility] Comment on above: Performed By: #### 7 208081, 32033199, 6600309, 6773207839 ####[facility] (DEFAULT)[address] [place] [address] eGFR AA >60 Invalid Interpretation Code [facility] Comment on above: Result Comment: Hospice Care Transitions Coordinator lokesh Kidney disease could be indicated at eGFRs of less than 60 ml/min/1.73m2. Kidney Failure is indicated at less than 15 ml/min/1.73m2 Performed By: #### 7 914890, 83619853, 3070345, 4368678830 ####[facility] (DEFAULT)[address] [place] [address] 78887 Albumin [Mass/Vol] 3.4 g/dL Low 3.5-5.0 [facility] Comment on above: Performed By: #### 7 679380, 93978518, 1211244, 1942450165 ####[facility] (DEFAULT)[address] [place] [address] 92656 Albumin/Globulin [Mass ratio] 1.0 {ratio} Low 1.4-2.6 [facility] Comment on above: Performed By: #### 7 954968, 51506524, 5348565, [id number] ####[facility] (DEFAULT)[address] [place] [address] 69046 Alk Phos 60 IU/L Normal 32-91 [facility] Comment on above: Performed By: #### 7 960732, 09433665, 9111263, 6434505073 ####[facility] (DEFAULT)[address] [place] [address] 89135 ALT [Catalytic activity/Vol] 23.0 U/L Normal 17.0-63.0 [facility] Comment on above: Performed By: #### 7 629349, 37717970, 7942029, 8976151803 ####[facility] (DEFAULT)[address] [place] [address] 53162 Anion gap [Moles/Vol] 15.0 mmol/L Normal 5.0-19.0 [facility] Comment on above: Performed By: #### 7 808821, 66379127, 3089952, 1610711265 ####[facility] (DEFAULT)[address] [place] [address] 83318 AST [Catalytic activity/Vol] 17 U/L Normal 15-41 [facility] Comment on above: Performed By: #### 7 049618, 73935034, 4309384, [id number] ####[facility] (DEFAULT)[address] [place] [address] 63314 Bili Total 0.6 mg/dL Normal 0.3-1.2 [facility] Comment on above: Performed By: #### 7 971016, 17970461, 6068862, 7273844572 ####[facility] (DEFAULT)[address] [place] [address] 15342 Calcium [Mass/Vol] 9.1 mg/dL Normal 8.9-10.3 [facility] Comment on above: Performed By: #### 7 560004, 27689669, 9049294, 7924041790 ####[facility] (DEFAULT)[address] [place] [address] 76359 Chloride [Moles/Vol] 101 mmol/L Normal 101-111 [facility] Comment on above: Performed By: #### 7 083515, 19480188, 0424816, [id number] ####[facility] (DEFAULT)[address] [place] [address] 10684 CO2 [Moles/Vol] 23 mmol/L Normal 21-32 [facility] Comment on above: Performed By: #### 7 200461, 34191466, 2649806, 8165496725 ####[facility] (DEFAULT)[address] [place] [address] 87754 Creatinine [Mass/Vol] 1.28 mg/dL Normal 0.90-1.30 [facility] Comment on above: Performed By: #### 7 267743, 95909770, 1977804, 2649517769 ####[facility] (DEFAULT)[address] [place] [address] 25556 Globulin (S) [Mass/Vol] 3.5 g/dL Normal 1.5-4.3 [facility] Comment on above: Performed By: #### 7 [id number], [id number], [id number], [id number] ####[facility] (DEFAULT)[address] [place] [address] 58238 Glucose [Mass/Vol] 183.0 mg/dL High 74.0-118.0 [facility] Comment on above: Performed By: #### 7 [id number], [id number], [id number], [id number] ####[facility] (DEFAULT)[address] [place] [address] 53362 Osmolality 288 mOsm/L Invalid Interpretation Code [facility] Comment on above: Performed By: #### 7 [id number], [id number], [id number] ####[facility] (DEFAULT)[address] [place] [address] 34423 Potassium [Moles/Vol] 4.1 mmol/L Normal 3.6-5.1 [facility] Comment on above: Performed By: #### 7 [id number], [id number], [id number] ####[facility] (DEFAULT)[address] [place] [address] 34327 Protein [Mass/Vol] 6.9 g/dL Normal 6.5-8.1 [facility] [facility] Comment on above: Performed By: #### 7 682697, 16392500, 1032024, [id number] ####[facility] (DEFAULT)[address] [place] [address] 82067 Sodium [Moles/Vol] 135.0 mmol/L Low 136.0-144.0 [facility] Comment on above: Performed By: #### 7 914411, 27903150, 7803996, [id number] ####[facility] (DEFAULT)[address] [place] [address] 34889 Urea nitrogen [Mass/Vol] 50 mg/dL High 05-30 [facility] Comment on above: Performed By: #### 7 001081, 02175603, 6565182, [id number] ####[facility] (DEFAULT)[address] [place] [address] 16496 Urea nitrogen/Creatinine [Mass ratio] 39.0 mg/mg High 4.6-16.2 [facility] Comment on above: Performed By: #### 7 500952, 93955190, 7446016, 1208980384 ####[facility] (DEFAULT)[address] [place] [address] 77902 Consent Formson 07-14-2022 Consent Forms [id number]#1.0 0OTGTIFF Normal [facility] Magnesiumon 07-14-2022 Magnesium [Mass/Vol] 2.00 mg/dL Normal 1.80-2.50 [facility] Comment on above: Performed By: #### 7 284596, 82209444, 9890205, [id number] ####[facility] (DEFAULT)[address] [place] [address] 58175 Nutrition Noteon 07-14-2022 Nutrition Note Normal [facility] POCT Glucose Levelon 022 Glucose [Mass/Vol] 164 mg/dL High [address] [place] [address] Comment on above: Performed By: #### 4 [id number] ####[facility] (DEFAULT)[address] [place] [address] Glucose [Mass/Vol] 270 mg/dL High [address] [place] [address] Comment on above: Performed By: #### 4 [id number] ####[facility] (DEFAULT)[address] [place] [address] Glucose [Mass/Vol] 242 mg/dL [address] Comment on above: Performed By: #### 4 [id number] ####[facility] (DEFAULT)[address] [place] [address] Glucose [Mass/Vol] 165 mg/dL High [address] [place] [address] Comment on above: Performed By: #### 4 [id number] ####[facility] (DEFAULT)[address] [place] [address] Rad - MRI Reporton 2 Rad - MRI Report [id number]#1.0 0OTGTIFF [facility] Telemetry Stripson 2 Telemetry Strips [id number]#1.00 OTGTIFF [facility] US Echocardiogram Completeon 07-14-2022 US Echocardiogram Complete Normal [facility] .Auto Diff 1on 07-13-2022 Auto Victoria % 8 % Normal 10-16 [facility] Comment on above: Performed By: #### 7 501874, 7776091, 5608036849, 5327879895, 23897448 ####[facility] (DEFAULT)[address] [place] [address] Baso Abs# 0.0 x10 Normal 0.0-0.2 [facility] Comment on above: Performed By: #### 7 732499, 5141630, 0717688658, 4167541239, 44135025 ####[facility] (DEFAULT)[address] [place] [address] 50395 Basophils/100 WBC (Bld) 0.4 % Normal 0.2-2.0 [facility] Comment on above: Performed By: #### 7 923394, 8940347, 2764484887, 7716603137, 18756046 ####[facility] (DEFAULT)[address] [place] [address] 12067 Eos Abs# 0.6 x10 High 0.0-0.4 [facility] Comment on above: Performed By: #### 7 819276, 1932762, 5842063969, 0985040125, 55840168 ####[facility] (DEFAULT)[address] [place] [address] 48505 Eosinophils/100 WBC (Bld) 5.4 % High 0.9-4.0 [facility] Comment on above: Performed By: #### 7 781872, 3397610, 9189036273, 6427545686, 81991747 ####[facility] (DEFAULT)[address] [place] [address] 69840 Lymph Abs# 2.6 x10 Normal 1.3-2.9 [facility] Comment on above: Performed By: #### 7 091138, 6126088, 6149726006, 2371828539, 70678083 ####[facility] (DEFAULT)[address] [place] [address] 17911 Lymphocytes/100 WBC (Bld) 24 % Normal 14-48 [facility] Comment on above: Performed By: #### 7 273375, 3398968, 9493491259, 2117644079, 34761762 ####[facility] (DEFAULT)[address] [place] [address] 86560 Victoria Abs# 0.9 x10 High 0.0-0.8 [facility] Comment on above: Performed By: #### 7 085946, 6257106, 3389373489, 5950471730, 76507250 ####[facility] (DEFAULT)[address] [place] [address] 65256 Neut Abs# 6.7 x10 Normal 1.5-9.2 [facility] Comment on above: Performed By: #### 7 221179, 8100242, 9403343180, 6727464547, 41769334 ####[facility] (DEFAULT)[address] [place] [address] 10514 Neutrophils/100 WBC (Bld) 62 % Normal 44-88 [facility] Comment on above: Performed By: #### 7 765816, 5068063, 1573758499, 0486534727, 63255889 ####[facility] (DEFAULT)[address] [place] [address] 50476 BMP Standardon 07-13-2022 eGFR Non AA 60 mL/min/1.73m2 Invalid Interpretation Code [facility] Comment on above: Performed By: #### 7 049107, 3145901, 2455313612, 6760158577, 11467370 ####[facility] (DEFAULT)[address] [place] [address] eGFR AA >60 Invalid Interpretation Code [facility] Comment on above: Result Comment: Hospice Care Transitions Coordinator lokesh Kidney disease could be indicated at eGFRs of less than 60 ml/min/1.73m2. Kidney Failure is indicated at less than 15 ml/min/1.73m2 Performed By: #### 7 169473, 7299855, 0452015196, 6591968088, 86673878 ####[facility] (DEFAULT)[address] [place] [address] 49410 Anion gap [Moles/Vol] 14.0 mmol/L Normal 5.0-19.0 [facility] Comment on above: Performed By: #### 7 251824, 9622246, 2469160948, 8185760469, 26040187 ####[facility] (DEFAULT)[address] [place] [address] 03209 Calcium [Mass/Vol] 9.3 mg/dL Normal 8.9-10.3 [facility] Comment on above: Performed By: #### 7 022120, 2339244, 2853383417, 9686987035, 58591905 ####[facility] (DEFAULT)[address] [place] [address] 03927 Chloride [Moles/Vol] 103 mmol/L Normal 101-111 [facility] Comment on above: Performed By: #### 7 312027, 1600551, 6438558492, 5824592463, 91646037 ####[facility] (DEFAULT)[address] [place] [address] 16508 CO2 [Moles/Vol] 24 mmol/L Normal 21-32 [facility] Comment on above: Performed By: #### 7 604260, 9049324, 4704295628, 2242130641, 15752397 ####[facility] (DEFAULT)[address] [place] [address] 44898 Creatinine [Mass/Vol] 1.21 mg/dL Normal 0.90-1.30 [facility] Comment on above: Performed By: #### 7 389745, 0590773, 7532086531, 6118021788, 34231208 ####[facility] (DEFAULT)[address] [place] [address] 73217 Glucose [Mass/Vol] 194.0 mg/dL High 74.0-118.0 [facility] Comment on above: Performed By: #### 7 385356, 5039546, 6225139188, 3555429394, 10344644 ####[facility] (DEFAULT)[address] [place] [address] 04356 Osmolality 289 mOsm/L Invalid Interpretation Code [facility] Comment on above: Performed By: #### 7 448783, 7051526, 6348871184, 8395466883, 39558382 ####[facility] (DEFAULT)[address] [place] [address] 10402 Potassium [Moles/Vol] 4.4 mmol/L Normal 3.6-5.1 [facility] Comment on above: Performed By: #### 7 502694, 9615635, 0554704007, 8839028048, 75614074 ####[facility] (DEFAULT)[address] [place] [address] Sodium [Moles/Vol] 137.0 mmol/L Normal 136.0-144.0 [facility] Comment on above: Performed By: #### 7 052736, 4200612, 3109670942, 3991481363, 25522780 ####[facility] (DEFAULT)[address] [place] [address] Urea nitrogen [Mass/Vol] 41 mg/dL High 8-26 [facility] Comment on above: Performed By: #### 7 208519, 5999386, 7779726589, 7233246545, 60758127 ####[facility] (DEFAULT)[address] [place] [address] Urea nitrogen/Creatinine [Mass ratio] 34.0 mg/mg High 4.6-16.2 [facility] Comment on above: Performed By: #### 7 885782, 7970533, 7619308329, 1271701308, 03177999 ####[facility] (DEFAULT)[address] [place] [address] CBC w/ Auto Diffon 2 Erythrocyte distribution width (RBC) [Ratio] 13.2 % Normal 11.5-15.0 [facility] Comment on above: Performed By: #### 7 644233, 1249870, 2132096422, 1832372983, 89058018 ####[facility] (DEFAULT)[address] [place] [address] Hematocrit (Bld) [Volume fraction] 36.7 % Normal 34.8-51.9 [facility] Comment on above: Performed By: #### 7 093472, 5023472, 8098971613, 7593101940, 14608874 ####[facility] (DEFAULT)[address] [place] [address] Hemoglobin (Bld) [Mass/Vol] 12.0 g/dL Normal 11.8-17.7 [facility] Comment on above: Performed By: #### 7 618426, 1759602, 4220559797, 9673322562, 28854704 ####[facility] (DEFAULT)[address] [place] [address] Instr WBC 10.8 x10 Invalid Interpretation Code [facility] Comment on above: Performed By: #### 7 993297, 6339255, 6605825993, 1823412593, 69263872 ####[facility] (DEFAULT)[address] [place] [address] 14655 Man Diff? Auto Normal [facility] Comment on above: Performed By: #### 7 572937, 1606357, 1864499464, 9906862359, 63151902 ####[facility] (DEFAULT)[address] [place] [address] 82133 MCH (RBC) [Entitic mass] 29 pg Normal 24-34 [facility] Comment on above: Performed By: #### 7 486438, 8528904, 8918097775, 9423076459, 84871816 ####[facility] (DEFAULT)[address] [place] [address] 31270 MCHC (RBC) [Mass/Vol] 33 g/dL Normal 26-37 [facility] Comment on above: Performed By: #### 7 016251, 1748227, 2618485127, 0773904290, 08041871 ####[facility] (DEFAULT)[address] [place] [address] 31390 MCV (RBC) [Entitic vol] 90 fL Normal 81-100 [facility] Comment on above: Performed By: #### 7 743987, 5863242, 5581072158, 9254011806, 30293014 ####[facility] (DEFAULT)[address] [place] [address] 20433 Platelet 258 x10 Normal 138-427 [facility] Comment on above: Performed By: #### 7 055702, 8160870, 7912980336, 0737676772, 93939417 ####[facility] (DEFAULT)[address] [place] [address] 65952 Platelet mean volume (Bld) [Entitic vol] 12.0 fL High 6.3-10.2 [facility] Comment on above: Performed By: #### 7 634117, 2710440, 7369317423, 9508849903, 51702026 ####[facility] (DEFAULT)[address] [place] [address] RBC 4.09 x10 Normal 3.70-5.30 [facility] Comment on above: Performed By: #### 7 610622, 1870037, 6745657491, 4548311504, 50647608 ####[facility] (DEFAULT)[address] [place] [address] WBC 10.8 x10 High 3.5-10.5 [facility] Comment on above: Performed By: #### 7 582954, 1006347, 6671998181, 0591022119, 13666701 ####[facility] (DEFAULT)[address] [place] [address] CMP Standardon 07-13-2022 Albumin [Mass/Vol] 3.5 g/dL Normal 3.5-5.0 [facility] Comment on above: Performed By: #### 7 432281, 4012293, 9788411368, 1701708733, 47423652 ####[facility] (DEFAULT)[address] [place] [address] Albumin/Globulin [Mass ratio] 1.0 {ratio} Low 1.4-2.6 [facility] Comment on above: Performed By: #### 7 290838, 2574174, 7554569637, 8105622469, 91253937 ####[facility] (DEFAULT)[address] [place] [address] Alk Phos 61 IU/L Normal 32-91 [facility] Comment on above: Performed By: #### 7 479293, 6694719, 9383228360, 3083833515, 58705603 ####[facility] (DEFAULT)[address] [place] [address] ALT [Catalytic activity/Vol] 20.0 U/L Normal 17.0-63.0 [facility] Comment on above: Performed By: #### 7 534344, 9879734, 5110296171, 6966924974, 79524124 ####[facility] (DEFAULT)[address] [place] [address] 79716 AST [Catalytic activity/Vol] 18 U/L Normal 15-41 [facility] Comment on above: Performed By: #### 7 360812, 4354262, 0352801185, 5607401298, 51118411 ####[facility] (DEFAULT)[address] [place] [address] Bili Total 0.7 mg/dL Normal 0.3-1.2 [facility] Comment on above: Performed By: #### 7 840393, 0921968, 4091142415, 2008613685, 19788664 ####[facility] (DEFAULT)[address] [place] [address] Globulin (S) [Mass/Vol] 3.5 g/dL Normal 1.5-4.3 [facility] Comment on above: Performed By: #### 7 656944, 6094945, 0417748841, 6321956790, 34201740 ####[facility] (DEFAULT)[address] [place] [address] Protein [Mass/Vol] 7.0 g/dL Normal 6.5-8.1 [facility] Comment on above: Performed By: #### 7 052954, 3375461, 3217346223, 0924663304, 33897046 ####[facility] (DEFAULT)[address] [place] [address] Upper Extremity w/o Contr ast Lefton 07-13-2022 CT Upper Extremity w/o Contrast Left Normal [facility] Magnesiumon 07-13-2022 Magnesium [Mass/Vol] 1.90 mg/dL Normal 1.80-2.50 [facility] Comment on above: Performed By: #### 7 503300, 4933814, 0445369836, 3003756980, 76138608 ####[facility] (DEFAULT)[address] [place] [address] 04174 POCT Glucose Levelon 022 Glucose [Mass/Vol] 175 mg/dL High 74-118 [facility] Comment on above: Performed By: #### 4 [id number] ####[facility] (DEFAULT)[address] [place] [address] 27105 Glucose [Mass/Vol] 271 mg/dL High 74-118 [facility] Comment on above: Performed By: #### 4 [id number] ####[facility] (DEFAULT)[address] [place] [address] 59709 Glucose [Mass/Vol] 179 mg/dL High 74-118 [facility] Comment on above: Performed By: #### 4 933453958 ####[facility] (DEFAULT)[address] [place] [address] 13831 Progress Note - Nurseon Progress Note - Nurse Normal [facility] Standardon 07-12-2022 eGFR Non AA >60 Invalid Interpretation Code [facility] Comment on above: Performed By: #### 1 [id number], [id number] ####[facility] (DEFAULT)[address] [place] [address] 55369 eGFR AA >60 Invalid Interpretation Code [facility] Comment on above: Result Comment: Hospice Care Transitions Coordinator lokesh Kidney disease could be indicated at eGFRs of less than 60 ml/min/1.73m2. Kidney Failure is indicated at less than 15 ml/min/1.73m2 Performed By: #### 1 [id number], [id number] ####[facility] (DEFAULT)[address] [place] [address] 21016 Anion gap [Moles/Vol] 13.0 mmol/L Normal 5.0-19.0 [facility] Comment on above: Performed By: #### 1 645231009, [id number] ####[facility] (DEFAULT)[address] [place] [address] 98531 Calcium [Mass/Vol] 9.2 mg/dL Normal 8.9-10.3 [facility] Comment on above: Performed By: #### 1 544081799, 8470601005 ####[facility] (DEFAULT)[address] [place] [address] 06287 Chloride [Moles/Vol] 103 mmol/L Normal 101-111 [facility] Comment on above: Performed By: #### 1 351402166, 2267298760 ####[facility] (DEFAULT)[address] [place] [address] 26348 CO2 [Moles/Vol] 24 mmol/L Normal 21-32 [facility] Comment on above: Performed By: #### 1 869451758, 3005613754 ####[facility] (DEFAULT)[address] [place] [address] 06747 Creatinine [Mass/Vol] 1.17 mg/dL Normal 0.90-1.30 [facility] Comment on above: Performed By: #### 1 251579984, 0836478025 ####[facility] (DEFAULT)[address] [place] [address] 58728 Glucose [Mass/Vol] 181.0 mg/dL High 74.0-118.0 [facility] Comment on above: Performed By: #### 1 998446921, 8489135400 ####[facility] (DEFAULT)[address] [place] [address] 34403 Osmolality 287 mOsm/L Invalid Interpretation Code [facility] Comment on above: Performed By: #### 1 [id number], 4886333466 ####[facility] (DEFAULT)[address] [place] [address] 64935 Potassium [Moles/Vol] 4.8 mmol/L Normal 3.6-5.1 [facility] Comment on above: Performed By: #### 1 160791553, [id number] ####[facility] (DEFAULT)[address] [place] [address] 19490 Sodium [Moles/Vol] 135.0 mmol/L Low 136.0-144.0 [facility] Comment on above: Performed By: #### 1 [id number], 2530486136 ####[facility] (DEFAULT)[address] [place] [address] 36502 Urea nitrogen [Mass/Vol] 47 mg/dL High 8-26 [facility] Comment on above: Performed By: #### 1 337916393, 8544596422 ####[facility] (DEFAULT)[address] [place] [address] 75873 Urea nitrogen/Creatinine [Mass ratio] 40.0 mg/mg High 4.6-16.2 [facility] Comment on above: Performed By: #### 1 226479269, 0230030729 ####[facility] (DEFAULT)[address] [place] [address] Angiography Head/Neck w/ Contraston 07-12-2022 CT Angiography Head/Neck w/ Contrast Normal [facility] Extra [place] 07-12-2022 Tube Collected Yes Invalid Interpretation Code [facility] Comment on above: Performed By: #### 1 [id number], [id number] ####[facility] (DEFAULT)[address] [place] [address] 43305 POCT Glucose Levelon 022 Glucose [Mass/Vol] 290 mg/dL High 74-118 [facility] Comment on above: Performed By: #### 4 [id number] ####[facility] (DEFAULT)[address] [place] [address] 59304 Glucose [Mass/Vol] 243 mg/dL High [address] [place] [address] Comment on above: Performed By: #### 4 [id number] ####[facility] (DEFAULT)[address] [place] [address] 27078 Glucose [Mass/Vol] 148 mg/dL High [address] [place] [address] Comment on above: Performed By: #### 4 [id number] ####[facility] (DEFAULT)[address] [place] [address] 73645 Glucose [Mass/Vol] 163 mg/dL High [address] [place] [address] Comment on above: Performed By: #### 4 [id number] ####[facility] (DEFAULT)[address] [place] [address] 01351 Progress Note - Nurseon Progress Note - Nurse Normal [facility] .Auto Diff 1on 07-11-2022 Auto Victoria % 8 % Normal 10-16 [facility] Comment on above: Performed By: #### 7 806356, 19791783, 0031002936, 9152212, , ####[facility] (DEFAULT)[address] [place] [address] 32394 Baso Abs# 0.0 x10 Normal 0.0-0.2 [facility] Comment on above: Performed By: #### 7 479788, 14864863, 2342938813, 8044365, , ####[facility] (DEFAULT)[address] [place] [address] 36817 Basophils/100 WBC (Bld) 0.2 % Normal 0.2-2.0 [facility] Comment on above: Performed By: #### 7 241866, 65579206, 9388178693, 8085964, , ####[facility] (DEFAULT)[address] [place] [address] 06118 Eos Abs# 0.4 x10 Normal 0.0-0.4 [facility] Comment on above: Performed By: #### 7 735016, 45630038, 5649036576, 8041664, , ####[facility] (DEFAULT)[address] [place] [address] 31265 Eosinophils/100 WBC (Bld) 4.7 % High 0.9-4.0 [facility] Comment on above: Performed By: #### 7 051024, 74237309, 8517815153, 5932313, , ####[facility] (DEFAULT)[address] [place] [address] 91162 Lymph Abs# 2.5 x10 Normal 1.3-2.9 [facility] Comment on above: Performed By: #### 7 958000, 30906381, 8637658722, 0741433, , ####[facility] (DEFAULT)[address] [place] [address] 99730 Lymphocytes/100 WBC (Bld) 30 % Normal 14-48 [facility] Comment on above: Performed By: #### 7 553959, 70538901, 8798236415, 2878605, , [id number] ####[facility] (DEFAULT)[address] [place] [address] 28150 Victoria Abs# 0.7 x10 Normal 0.0-0.8 [facility] Comment on above: Performed By: #### 7 470993, 66904317, 2683702717, 6269022, , ####[facility] (DEFAULT)[address] [place] [address] 57399 Neut Abs# 4.7 x10 Normal 1.5-9.2 [facility] Comment on above: Performed By: #### 7 980114, 73384173, 7510734140, , , ####[facility] (DEFAULT)[address] [place] [address] 89855 Neutrophils/100 WBC (Bld) 57 % Normal 44-88 [facility] Comment on above: Performed By: #### 7 948166, 88824448, [id number], , , [id number] ####[facility] (DEFAULT)[address] [place] [address] 79316 Auto Victoria % 7 % Normal 1-12 [facility] Comment on above: Performed By: #### 1 7768543, 0515728, 8700528, 3604700242 ####[facility] (DEFAULT)[address] [place] [address] 48525 Baso Abs# 0.0 x10 Normal 0.0-0.2 [facility] Comment on above: Performed By: #### 1 2690832, 4085097, 1799425, 8650507845 ####[facility] (DEFAULT)[address] [place] [address] 37544 Basophils/100 WBC (Bld) 0.2 % Normal 0.2-2.0 [facility] Comment on above: Performed By: #### 1 3488458, 0051967, 8509016, 0948188435 ####[facility] (DEFAULT)[address] [place] [address] 43434 Eos Abs# 0.4 x10 Normal 0.0-0.4 [facility] Comment on above: Performed By: #### 1 4678327, 0368879, 3804151, 9016940762 ####[facility] (DEFAULT)[address] [place] [address] 47542 Eosinophils/100 WBC (Bld) 4.2 % High 0.9-4.0 [facility] Comment on above: Performed By: #### 1 4939015, 2886039, 8978017, 1604375106 ####[facility] (DEFAULT)[address] [place] [address] 36637 Lymph Abs# 2.5 x10 Normal 1.3-2.9 [facility] Comment on above: Performed By: #### 1 5572940, 0627216, 1494193, 4528075412 ####[facility] (DEFAULT)[address] [place] [address] 48146 Lymphocytes/100 WBC (Bld) 30 % Normal 14-48 [facility] Comment on above: Performed By: #### 1 7816808, 0428282, 1904992, 6323627408 ####[facility] (DEFAULT)[address] [place] [address]0922 [place] Abs# 0.6 x10 Normal 0.0-0.8 [facility] Comment on above: Performed By: #### 1 [id number], [id number], [id number], [id number] ####[facility] (DEFAULT)[address] [place] [address] 94973 Neut Abs# 5.0 x10 Normal 1.5-9.2 [facility] Comment on above: Performed By: #### 1 [id number], [id number], [id number], [id number] ####[facility] (DEFAULT)[address] [place] [address] 03373 Neutrophils/100 WBC (Bld) 59 % Normal 44-88 [facility] Comment on above: Performed By: #### 1 [id number], [id number], [id number], [id number] ####[facility] (DEFAULT)[address] [place] [address] [id number] BMP [place] 07-11-2022 eGFR Non AA 58 mL/min/1.73m2 Invalid Interpretation Code [facility] Comment on above: Performed By: #### 7 [id number], [id number], [id number], [id number], , [id number] ####[facility] (DEFAULT)[address] [place] [address] 36016 eGFR AA >60 Invalid Interpretation Code [facility] Comment on above: Result Comment: [facility] Coordinator lokesh Kidney disease could be indicated at eGFRs of less than 60 ml/min/1.73m2. Kidney Failure is indicated at less than 15 ml/min/1.73m2 Performed By: #### 7 483433, 27403947, 2866134604, 3845171, , [id number] ####[facility] (DEFAULT)[address] [place] [address] 88807 Anion gap [Moles/Vol] 16.0 mmol/L Normal 5.0-19.0 [facility] Comment on above: Performed By: #### 7 397968, 53591585, 2488428741, 6250925, , [id number] ####[facility] (DEFAULT)[address] [place] [address] 60755 Calcium [Mass/Vol] 9.5 mg/dL Normal 8.9-10.3 [facility] Comment on above: Performed By: #### 7 726311, 82027185, 0653737954, 3921331, 4620250223, 5381212857 ####[facility] (DEFAULT)[address] [place] [address] 94660 Chloride [Moles/Vol] 105 mmol/L Normal 101-111 [facility] Comment on above: Performed By: #### 7 272337, 15483298, 4711015989, 4270044, 3684654052, ####[facility] (DEFAULT)[address] [place] [address] 74242 CO2 [Moles/Vol] 24 mmol/L Normal 21-32 [facility] Comment on above: Performed By: #### 7 816073, 05342831, 8831800914, 8852258, , ####[facility] (DEFAULT)[address] [place] [address] 95167 Creatinine [Mass/Vol] 1.24 mg/dL Normal 0.90-1.30 [facility] Comment on above: Performed By: #### 7 908796, 32768302, 9800784828, 5228585, 3019204400, 9030284717 ####[facility] (DEFAULT)[address] [place] [address] 29133 Glucose [Mass/Vol] 187.0 mg/dL High 74.0-118.0 [facility] Comment on above: Performed By: #### 7 968900, 45690540, 9051472851, 3773476, 1079160788, ####[facility] (DEFAULT)[address] [place] [address] 72593 Osmolality 298 mOsm/L Invalid Interpretation Code [facility] Comment on above: Performed By: #### 7 815386, 91744127, 4635922957, 1979762, [id number], ####[facility] (DEFAULT)[address] [place] [address] 75127 Potassium [Moles/Vol] 5.5 mmol/L High 3.6-5.1 [facility] Comment on above: Performed By: #### 7 832004, 23662346, 4558194469, 5428755, , ####[facility] (DEFAULT)[address] [place] [address] 35883 Sodium [Moles/Vol] 139.0 mmol/L Normal 136.0-144.0 [facility] Comment on above: Performed By: #### 7 803739, 78327916, 0172472765, 2837851, 1613164525, ####[facility] (DEFAULT)[address] [place] [address] 80383 Urea nitrogen [Mass/Vol] 55 mg/dL High 8-26 [facility] Comment on above: Performed By: #### 7 294738, 66434721, 6787440381, 1938280, 4725839921, 8965824846 ####[facility] (DEFAULT)[address] [place] [address] 56505 Urea nitrogen/Creatinine [Mass ratio] 44.0 mg/mg High 4.6-16.2 [facility] Comment on above: Performed By: #### 7 237334, 89940435, 7804904433, 3327450, 8067928319, 7337711735 ####[facility] (DEFAULT)[address] [place] [address] 83264 eGFR Non AA 57 mL/min/1.73m2 Invalid Interpretation Code [facility] Comment on above: Performed By: #### 1 4212414, 8866881, 7770703, 2409954134 ####[facility] (DEFAULT)[address] [place] [address] 55189 eGFR AA >60 Invalid Interpretation Code [facility] Comment on above: Result Comment: Hospice Care Transitions Coordinator lokesh Kidney disease could be indicated at eGFRs of less than 60 ml/min/1.73m2. Kidney Failure is indicated at less than 15 ml/min/1.73m2 Performed By: #### 1 9077414, 8512659, 3100802, 6306125038 ####[facility] (DEFAULT)[address] [place] [address] 96529 Anion gap [Moles/Vol] 15.0 mmol/L Normal 5.0-19.0 [facility] Comment on above: Performed By: #### 1 5380906, 6953630, 1741412, 6772922153 ####[facility] (DEFAULT)[address] [place] [address] 33292 Calcium [Mass/Vol] 9.6 mg/dL Normal 8.9-10.3 [facility] Comment on above: Performed By: #### 1 6599254, 5295546, 6758524, 3934653630 ####[facility] (DEFAULT)[address] [place] [address] 34834 Chloride [Moles/Vol] 106 mmol/L Normal 101-111 [facility] Comment on above: Performed By: #### 1 1240497, 4980382, 2904370, 4147288739 ####[facility] (DEFAULT)[address] [place] [address] CO2 [Moles/Vol] 22 mmol/L Normal 21-32 [facility] Comment on above: Performed By: #### 1 6641235, 4861053, 9183872, 8670581837 ####[facility] (DEFAULT)[address] [place] [address] 58571 Creatinine [Mass/Vol] 1.25 mg/dL Normal 0.90-1.30 [facility] Comment on above: Performed By: #### 1 3704635, 1057782, 7331844, 9788694763 ####[facility] (DEFAULT)[address] [place] [address] 40748 Glucose [Mass/Vol] 178.0 mg/dL High 74.0-118.0 [facility] Comment on above: Performed By: #### 1 7485853, 6812063, 5244547, 2400858008 ####[facility] (DEFAULT)[address] [place] [address] 64658 Osmolality 296 mOsm/L Invalid Interpretation Code [facility] Comment on above: Performed By: #### 1 3880317, 0176644, 4278567, 4618418724 ####[facility] (DEFAULT)[address] [place] [address] 02240 Potassium [Moles/Vol] 5.2 mmol/L High 3.6-5.1 [facility] Comment on above: Performed By: #### 1 1490704, 8141129, 7012089, 4233133883 ####[facility] (DEFAULT)[address] [place] [address] 16942 Sodium [Moles/Vol] 138.0 mmol/L Normal 136.0-144.0 [facility] Comment on above: Performed By: #### 1 6699015, 7838222, 4481951, 2385110606 ####[facility] (DEFAULT)[address] [place] [address] 41777 Urea nitrogen [Mass/Vol] 56 mg/dL High 8-26 [facility] Comment on above: Performed By: #### 1 0618246, 4405690, 3256914, 6617622214 ####[facility] (DEFAULT)[address] [place] [address] Urea nitrogen/Creatinine [Mass ratio] 45.0 mg/mg High 4.6-16.2 [facility] Comment on above: Performed By: #### 1 0316619, 0166211, 1366825, [id number] ####[facility] (DEFAULT)[address] [place] [address] C Urineon 07-11-2022 C Urine Normal [facility] Comment on above: Performed By: #### 5 2925157, 0465241, 8310521383 ####[facility] (DEFAULT)[address] [place] [address] CBC w/ Auto Diffon Erythrocyte distribution width (RBC) [Ratio] 13.5 % Normal 11.5-15.0 [facility] Comment on above: Performed By: #### 7 094440, 90645438, 2238097860, 8834468, 9882682494, 1128105404 ####[facility] (DEFAULT)[address] [place] [address] Hematocrit (Bld) [Volume fraction] 38.4 % Normal 34.8-51.9 [facility] Comment on above: Performed By: #### 7 479874, 13021106, 1510014318, 9676533, 5381259520, 7949905562 ####[facility] (DEFAULT)[address] [place] [address] Hemoglobin (Bld) [Mass/Vol] 12.4 g/dL Normal 11.8-17.7 [facility] Comment on above: Performed By: #### 7 438311, 36610530, 8255076050, 9716355, 7145062472, 9152019316 ####[facility] (DEFAULT)[address] [place] [address] Instr WBC 8.3 x10 Invalid Interpretation Code [facility] Comment on above: Performed By: #### 7 525704, 93663750, 9531893222, 5850538, , ####[facility] (DEFAULT)[address] [place] [address] Man Diff? Auto Normal [facility] Comment on above: Performed By: #### 7 040495, 94753049, 8325881146, 2667906, , ####[facility] (DEFAULT)[address] [place] [address] 15765 MCH (RBC) [Entitic mass] 29 pg Normal 24-34 [facility] Comment on above: Performed By: #### 7 085212, 52338546, 6335176138, 3687767, , ####[facility] (DEFAULT)[address] [place] [address] 76500 MCHC (RBC) [Mass/Vol] 32 g/dL Normal 26-37 [facility] Comment on above: Performed By: #### 7 630029, 67906289, 3916556814, 1167210, , ####[facility] (DEFAULT)[address] [place] [address] 95343 MCV (RBC) [Entitic vol] 90 fL Normal 81-100 [facility] Comment on above: Performed By: #### 7 258123, 62539970, 2148445202, 1516103, , ####[facility] (DEFAULT)[address] [place] [address] 68793 Platelet 247 x10 Normal 138-427 [facility] Comment on above: Performed By: #### 7 891611, 75472071, 4326491865, 2918952, , ####[facility] (DEFAULT)[address] [place] [address] 47071 Platelet mean volume (Bld) [Entitic vol] 11.6 fL High 6.3-10.2 [facility] Comment on above: Performed By: #### 7 616513, 50070577, 8436538196, 9427648, , ####[facility] (DEFAULT)[address] [place] [address] 42152 RBC 4.25 x10 Normal 3.70-5.30 [facility] Comment on above: Performed By: #### 7 242751, 28098000, 6349886280, 2563835, 9200109163, 4887722122 ####[facility] (DEFAULT)[address] [place] [address] 34724 WBC 8.3 x10 Normal 3.5-10.5 [facility] Comment on above: Performed By: #### 7 610923, 86263987, 0890534341, 1334432, 0226128425, 0563734164 ####[facility] (DEFAULT)[address] [place] [address] 09156 Erythrocyte distribution width (RBC) [Ratio] 13.5 % Normal 11.5-15.0 [facility] Comment on above: Performed By: #### 1 3492968, 4615741, 6337075, 4396621607 ####[facility] (DEFAULT)[address] [place] [address] 67613 Hematocrit (Bld) [Volume fraction] 36.4 % Normal 34.8-51.9 [facility] Comment on above: Performed By: #### 1 1001330, 8129051, 2427707, 4669118345 ####[facility] (DEFAULT)[address] [place] [address] 80368 Hemoglobin (Bld) [Mass/Vol] 11.8 g/dL Normal 11.8-17.7 [facility] Comment on above: Performed By: #### 1 9206729, 7110633, 9434074, 7834162613 ####[facility] (DEFAULT)[address] [place] [address] 90865 Instr WBC 8.5 x10 Invalid Interpretation Code [facility] Comment on above: Performed By: #### 1 2682045, 0815505, 6539719, 3236965757 ####[facility] (DEFAULT)[address] [place] [address] 15257 Man Diff? Auto Normal [facility] Comment on above: Performed By: #### 1 8507990, 5428574, 6063319, 3911121787 ####[facility] (DEFAULT)[address] [place] [address] 73974 MCH (RBC) [Entitic mass] 29 pg Normal 24-34 [facility] Comment on above: Performed By: #### 1 9978668, 6063592, 5134758, 2915450984 ####[facility] (DEFAULT)[address] [place] [address] 81683 MCHC (RBC) [Mass/Vol] 32 g/dL Normal 26-37 [facility] Comment on above: Performed By: #### 1 2283042, 7004054, 3670645, 7944999554 ####[facility] (DEFAULT)[address] [place] [address] 83203 MCV (RBC) [Entitic vol] 90 fL Normal 81-100 [facility] Comment on above: Performed By: #### 1 4578823, 1872972, 0810294, 9856650037 ####[facility] (DEFAULT)[address] [place] [address] 48450 Platelet 243 x10 Normal 138-427 [facility] Comment on above: Performed By: #### 1 1010759, 3031697, 2049460, 3767602806 ####[facility] (DEFAULT)[address] [place] [address] 23084 Platelet mean volume (Bld) [Entitic vol] 11.7 fL High 6.3-10.2 [facility] Comment on above: Performed By: #### 1 7170936, 7508133, 8543719, 7906028678 ####[facility] (DEFAULT)[address] [place] [address] 79557 RBC 4.04 x10 Normal 3.70-5.30 [facility] Comment on above: Performed By: #### 1 3718556, 9817518, 5269640, 0433697594 ####[facility] (DEFAULT)[address] [place] [address] 80344 WBC 8.5 x10 Normal 3.5-10.5 [facility] Comment on above: Performed By: #### 1 8370605, 2642900, 8614821, 1053516499 ####[facility] (DEFAULT)[address] [place] [address] 97925 CRPon 07-11-2022 CRP 0.5 mg/dL Normal <=0.5 [facility] Comment on above: Performed By: #### 1 3782469, 7288206, 6894263, 3319337051 ####[facility] (DEFAULT)[address] [place] [address] 37444 Extra Blueon 07-11-2022 Tube Collected Yes Invalid Interpretation Code [facility] Comment on above: Performed By: #### 7 248951, 89036812, 5712945846, 8281830, 5470892485, 2973520245 ####[facility] (DEFAULT)[address] [place] [address] 17505 Lactic Acidon 07-11-2022 Lactic Acid 13.0 mg/dL Normal 4.5-19.8 [facility] Comment on above: Performed By: #### 2 589142 ####[facility] (DEFAULT)[address] [place] [address] 09198 MRI Brain w/o Contraston MRI Brain w/o Contrast Normal [facility] Magnesiumon 07-11-2022 Magnesium [Mass/Vol] 2.16 mg/dL Normal 1.80-2.50 [facility] Comment on above: Performed By: #### 7 094549, 88871298, 0882345724, 1590554, 2346093864, 3409552256 ####[facility] (DEFAULT)[address] [place] [address] 77821 Nutrition Noteon 07-11-2022 Nutrition Note Normal [facility] POCT Glucose Levelon 022 Glucose [Mass/Vol] 210 mg/dL High 74118 [facility] Comment on above: Performed By: #### 4 [id number] ####[facility] (DEFAULT)[address] [place] [address] 26169 Glucose [Mass/Vol] 198 mg/dL High [address] Comment on above: Performed By: #### 4 [id number] ####[facility] (DEFAULT)[address] [place] [address] 79596 Glucose [Mass/Vol] 154 mg/dL High 74-118 [facility] Comment on above: Performed By: #### 4 847433249 ####[facility] (DEFAULT)[address] [place] [address] 11253 Glucose [Mass/Vol] 164 mg/dL High 74-118 [facility] Comment on above: Performed By: #### 4 [id number] ####[facility] (DEFAULT)[address] [place] [address] 01053 Glucose [Mass/Vol] 162 mg/dL High 74-118 [facility] Comment on above: Performed By: #### 4 [id number] ####[facility] (DEFAULT)[address] [place] [address] 55676 Glucose [Mass/Vol] 188 mg/dL High 74-118 [facility] Comment on above: Performed By: #### 4 [id number] ####[facility] (DEFAULT)[address] [place] [address] 87942 Progress Note - Nurseon Progress Note - Nurse [facility] Rad - MRI Reporton 2 Rad - MRI Report [id number]#1.0 0OTGTIFF [facility] Telemetry Stripson 2 Telemetry Strips [id number]#1.0 0OTGTIFF [facility] Venous pHon 07-11-2022 pH Qasim 7.36 Low 7.37-7.44 [facility] Comment on above: Result Comment: Dr. Orozco wanted a venous blood gas and wanted to see the CO2. Venous PCO2 47 mmHgDrDenae Orozco visually saw the venous blood gas print out Performed By: #### 1 [id number] ####[facility] (DEFAULT)[address] [place] [address] 78207 XR Chest 1 View Frontalon XR Chest 1 View Frontal Normal [facility] .Auto Diff 1on 07-10-2022 Auto Victoria % 7 % Normal 1-12 [facility] Comment on above: Performed By: #### 1 8111592, 0146405, 5258448, 5617446460 ####[facility] (DEFAULT)[address] [place] [address] 63237 Baso Abs# 0.0 x10 Normal 0.0-0.2 [facility] Comment on above: Performed By: #### 1 6146677, 1411876, 6793730, 4844313877 ####[facility] (DEFAULT)[address] [place] [address] 90380 Basophils/100 WBC (Bld) 0.4 % Normal 0.2-2.0 [facility] Comment on above: Performed By: #### 1 9748536, 6863449, 1407198, 2413793535 ####[facility] (DEFAULT)[address] [place] [address] 97168 Eos Abs# 0.5 x10 High 0.0-0.4 [facility] Comment on above: Performed By: #### 1 4250548, 5197462, 4942070, 7417868969 ####[facility] (DEFAULT)[address] [place] [address] 37667 Eosinophils/100 WBC (Bld) 6.2 % High 0.9-4.0 [facility] Comment on above: Performed By: #### 1 9652827, 3236821, 2523269, 8917605206 ####[facility] (DEFAULT)[address] [place] [address] 92316 Lymph Abs# 2.7 x10 Normal 1.3-2.9 [facility] Comment on above: Performed By: #### 1 7779242, 0690335, 6387824, 1773778392 ####[facility] (DEFAULT)[address] [place] [address] 22690 Lymphocytes/100 WBC (Bld) 33 % Normal 14-48 [facility] Comment on above: Performed By: #### 1 6678539, 3559846, 7869176, 2717996966 ####[facility] (DEFAULT)[address] [place] [address] Victoria Abs# 0.6 x10 Normal 0.0-0.8 [facility] Comment on above: Performed By: #### 1 0296800, 4312971, 2396503, 8635862749 ####[facility] (DEFAULT)[address] [place] [address] Neut Abs# 4.3 x10 Normal 1.5-9.2 [facility] Comment on above: Performed By: #### 1 0895646, 2980919, 3559323, 6205528201 ####[facility] (DEFAULT)[address] [place] [address] Neutrophils/100 WBC (Bld) 53 % Normal 44-88 [facility] Comment on above: Performed By: #### 1 3521343, 9230532, 7241489, 0483518734 ####[facility] (DEFAULT)[address] [place] [address] Standardon 07-10-2022 eGFR Non AA 57 mL/min/1.73m2 Invalid Interpretation Code [facility] Comment on above: Performed By: #### 1 3469999, 9474542, 9405515, 3621094684 ####[facility] (DEFAULT)[address] [place] [address] eGFR AA >60 Invalid Interpretation Code [facility] Comment on above: Result Comment: Hospice Care Transitions Coordinator lokesh Kidney disease could be indicated at eGFRs of less than 60 ml/min/1.73m2. Kidney Failure is indicated at less than 15 ml/min/1.73m2 Performed By: #### 1 7219631, 4620950, 8967069, 7926430834 ####[facility] (DEFAULT)[address] [place] [address] Anion gap [Moles/Vol] 14.0 mmol/L Normal 5.0-19.0 [facility] Comment on above: Performed By: #### 1 6484004, 4331876, 1998924, 7696683643 ####[facility] (DEFAULT)[address] [place] [address] Calcium [Mass/Vol] 9.2 mg/dL Normal 8.9-10.3 [facility] Comment on above: Performed By: #### 1 8341392, 4145334, 6422178, 4889514429 ####[facility] (DEFAULT)[address] [place] [address] 01795 Chloride [Moles/Vol] 105 mmol/L Normal 101-111 [facility] Comment on above: Performed By: #### 1 6313227, 7582785, 1464495, 0813217004 ####[facility] (DEFAULT)[address] [place] [address] 38404 CO2 [Moles/Vol] 20 mmol/L Low 21-32 [facility] Comment on above: Performed By: #### 1 0663874, 4391636, 4380091, 1445609283 ####[facility] (DEFAULT)[address] [place] [address] 98600 Creatinine [Mass/Vol] 1.26 mg/dL Normal 0.90-1.30 [facility] Comment on above: Performed By: #### 1 7104516, 2272936, 9266384, 8307407814 ####[facility] (DEFAULT)[address] [place] [address] 79997 Glucose [Mass/Vol] 210.0 mg/dL High 74.0-118.0 [facility] Comment on above: Performed By: #### 1 2552930, 4202218, 8465566, 9968641809 ####[facility] (DEFAULT)[address] [place] [address] 21089 Osmolality 298 mOsm/L Invalid Interpretation Code [facility] Comment on above: Performed By: #### 1 7973877, 2882943, 3996602, 0173045951 ####[facility] (DEFAULT)[address] [place] [address] 91073 Potassium [Moles/Vol] 5.3 mmol/L High 3.6-5.1 [facility] Comment on above: Performed By: #### 1 7467333, 8696618, 4547645, 4902770390 ####[facility] (DEFAULT)[address] [place] [address] 37309 Sodium [Moles/Vol] 134.0 mmol/L Low 136.0-144.0 [facility] Comment on above: Performed By: #### 1 2003889, 5067014, 7675817, 5157863404 ####[facility] (DEFAULT)[address] [place] [address] Urea nitrogen [Mass/Vol] 78 mg/dL High 8-26 [facility] Comment on above: Performed By: #### 1 3444834, 5317179, 1563362, 1129803502 ####[facility] (DEFAULT)[address] [place] [address] Urea nitrogen/Creatinine [Mass ratio] 62.0 mg/mg High 4.6-16.2 [facility] Comment on above: Performed By: #### 1 6460644, 4131636, 3453288, 6382905797 ####[facility] (DEFAULT)[address] [place] [address] C Urineon 07-10-2022 C Urine Normal [facility] Comment on above: Performed By: #### 1 [id number], 5373547, 65646193 ####[facility] (DEFAULT)[address] [place], [place] [address] CBC w/ Auto Diffon Erythrocyte distribution width (RBC) [Ratio] 13.6 % Normal 11.5-15.0 [facility] Comment on above: Performed By: #### 1 5776804, 7487863, 0814982, 1756231120 ####[facility] (DEFAULT)[address] [place] [address] 52349 Hematocrit (Bld) [Volume fraction] 34.9 % Normal 34.8-51.9 [facility] Comment on above: Performed By: #### 1 3632611, 9143290, 1917060, 8574001094 ####[facility] (DEFAULT)[address] [place] [address] Hemoglobin (Bld) [Mass/Vol] 11.5 g/dL Low 11.8-17.7 [facility] Comment on above: Performed By: #### 1 4164964, 8689409, 7340430, [id number] ####[facility] (DEFAULT)[address] [place] [address] Instr WBC 8.1 x10 Invalid Interpretation Code [facility] Comment on above: Performed By: #### 1 6998293, 1761141, 5450242, [id number] ####[facility] (DEFAULT)[address] [place] [address] Man Diff? Auto Normal [facility] Comment on above: Performed By: #### 1 3715184, 2754320, 0754346, 1399421615 ####[facility] (DEFAULT)[address] [place] [address] MCH (RBC) [Entitic mass] 29 pg Normal 24-34 [facility] Comment on above: Performed By: #### 1 9117352, 9777291, 1256126, [id number] ####[facility] (DEFAULT)[address] [place] [address] MCHC (RBC) [Mass/Vol] 33 g/dL Normal 26-37 [facility] Comment on above: Performed By: #### 1 [id number], [id number], [id number], [id number] ####[facility] (DEFAULT)[address] [place] [address] MCV (RBC) [Entitic vol] 89 fL Normal 81-100 [facility] Comment on above: Performed By: #### 1 [id number], [id number], [id number], [id number] ####[facility] (DEFAULT)[address] [place] [address] Platelet 256 x10 Normal 138-427 [facility] Comment on above: Performed By: #### 1 [id number], [id number], [id number], [id number] ####[facility] (DEFAULT)[address] [place] [address] Platelet mean volume (Bld) [Entitic vol] 12.3 fL High 6.3-10.2 [facility] Comment on above: Performed By: #### 1 [id number], [id number], [id number], [id number] ####[facility] (DEFAULT)[address] [place] [address] RBC 3.92 x10 Normal 3.70-5.30 [facility] Comment on above: Performed By: #### 1 [id number], [id number], [id number], [id number] ####[facility] (DEFAULT)[address] [place] [id number] WBC 8.1 x10 Normal 3.5-10.5 [facility] Comment on above: Performed By: #### 1 [id number], 7589634, 9149627, [id number] ####[facility] (DEFAULT)[address] [place] [address] 23289 CKon 07-10-2022 CK [Catalytic activity/Vol] 76 U/L Normal 49-397 [facility] Comment on above: Performed By: #### 1 [id number], 7480805, 4703418, [id number] ####[facility] (DEFAULT)[address] [place] [address] Chest/Abdomen/Pelvis w/o Contraston 07-10-2022 CT Chest/Abdomen/Pelvis w/o Contrast Normal [facility] MRI Brain w/o Contraston MRI Brain w/o Contrast Normal [facility] POCT Glucose Levelon 022 Glucose [Mass/Vol] 231 mg/dL High 74-118 [facility] Comment on above: Performed By: #### 4 [id number] ####[facility] (DEFAULT)[address] [place] [address] 82475 Glucose [Mass/Vol] 214 mg/dL High 74-118 [facility] Comment on above: Performed By: #### 4 [id number] ####[facility] (DEFAULT)[address] [place] [address] 75739 Glucose [Mass/Vol] 163 mg/dL High 74-118 [facility] Comment on above: Performed By: #### 4 [id number] ####[facility] (DEFAULT)[address] [place] [address] 29168 Glucose [Mass/Vol] 174 mg/dL High 74-118 [facility] Comment on above: Performed By: #### 4 [id number] ####[facility] (DEFAULT)[address] [place] [address] Progress Note - Nurseon Progress Note - Nurse Normal [facility] Progress Note - Nurse Normal [facility] Telemetry Stripson Telemetry Strips [id number]#1.0 0OTGTIFF Normal [facility] .Auto Diff 1on 07-09-2022 Auto Victoria % 7 % Normal -12 [facility] Comment on above: Performed By: #### 7 920915, 6652626, 0238200, 701861139, 6422925552, 68553274 ####[facility] (DEFAULT)[address] [place] [address] Baso Abs# 0.0 x10 Normal 0.0-0.2 [facility] Comment on above: Performed By: #### 7 850696, 1443271, 6414512, 075210540, 0368330322, 70880075 ####[facility] (DEFAULT)[address] [place] [address] Basophils/100 WBC (Bld) 0.2 % Normal 0.2-2.0 [facility] Comment on above: Performed By: #### 7 433416, 5505321, 3145130, 922676252, 9468958231, 33030311 ####[facility] (DEFAULT)[address] [place] [address] Eos Abs# 0.4 x10 Normal 0.0-0.4 [facility] Comment on above: Performed By: #### 7 373962, 9639459, 9403298, 916670034, 8430939004, 41583686 ####[facility] (DEFAULT)[address] [place] [address] Eosinophils/100 WBC (Bld) 4.4 % High 0.9-4.0 [facility] Comment on above: Performed By: #### 7 555586, 3060811, 4521642, 832498304, 2205869582, 22321951 ####[facility] (DEFAULT)[address] [place] [address] Lymph Abs# 2.2 x10 Normal 1.3-2.9 [facility] Comment on above: Performed By: #### 7 247000, 5924168, 8782841, 086310135, 9116892925, 77283114 ####[facility] (DEFAULT)[address] [place] [address] Lymphocytes/100 WBC (Bld) 21 % Normal 14-48 [facility] Comment on above: Performed By: #### 7 481199, 4549328, 5172143, 411309463, 1851585995, 40171612 ####[facility] (DEFAULT)[address] [place] [address] Victoria Abs# 0.8 x10 Normal 0.0-0.8 [facility] Comment on above: Performed By: #### 7 508788, 8988129, 6761219, 242115447, 6969134874, 54697073 ####[facility] (DEFAULT)[address] [place] [address] Neut Abs# 6.8 x10 Normal 1.5-9.2 [facility] Comment on above: Performed By: #### 7 447145, 7712547, 7812704, 379664117, 6444707842, 85008586 ####[facility] (DEFAULT)[address] [place] [address] Neutrophils/100 WBC (Bld) 67 % Normal 44-88 [facility] Comment on above: Performed By: #### 7 758039, 9575378, 8451642, 851882050, 4853656245, 97946819 ####[facility] (DEFAULT)[address] [place] [address] CBC w/ Auto Diffon 2 Erythrocyte distribution width (RBC) [Ratio] 13.4 % Normal 11.5-15.0 [facility] Comment on above: Performed By: #### 7 609689, 7441404, 1714291, 905365846, 2134493077, 24640579 ####[facility] (DEFAULT)[address] [place] [address] 77359 Hematocrit (Bld) [Volume fraction] 37.2 % Normal 34.8-51.9 [facility] Comment on above: Performed By: #### 7 008467, 9402983, 6247401, 881822502, 6775775770, 53133538 ####[facility] (DEFAULT)[address] [place] [address] Hemoglobin (Bld) [Mass/Vol] 12.4 g/dL Normal 11.8-17.7 [facility] Comment on above: Performed By: #### 7 778554, 2990377, 3588449, 192051338, 8878370258, 87287708 ####[facility] (DEFAULT)[address] [place] [address] Instr WBC 10.2 x10 Invalid Interpretation Code [facility] Comment on above: Performed By: #### 7 309910, 2458051, 0968027, 989620973, 0093308486, 78388087 ####[facility] (DEFAULT)[address] [place] [address] 81558 Man Diff? Auto Normal [facility] Comment on above: Performed By: #### 7 848921, 5459498, 5425076, 867563237, 8212351458, 34394243 ####[facility] (DEFAULT)[address] [place] [address] 77475 MCH (RBC) [Entitic mass] 29 pg Normal 24-34 [facility] Comment on above: Performed By: #### 7 399683, 4785065, 2550579, 257686221, 5884504689, 34918937 ####[facility] (DEFAULT)[address] [place] [address] 88938 MCHC (RBC) [Mass/Vol] 33 g/dL Normal 26-37 [facility] Comment on above: Performed By: #### 7 900627, 4073051, 9373832, 014381418, 3588392836, 50275692 ####[facility] (DEFAULT)[address] [place] [address] 04335 MCV (RBC) [Entitic vol] 88 fL Normal 81-100 [facility] Comment on above: Performed By: #### 7 635884, 8650449, 0939763, 914517653, 7090144410, 36428555 ####[facility] (DEFAULT)[address] [place] [address] Platelet 284 x10 Normal 138-427 [facility] Comment on above: Performed By: #### 7 250793, 3566934, 9029430, 073518300, 2288042825, 36458580 ####[facility] (DEFAULT)[address] [place] [address] Platelet mean volume (Bld) [Entitic vol] 12.1 fL High 6.3-10.2 [facility] Comment on above: Performed By: #### 7 894932, 9230334, 6623427, 902352019, 7226541931, 66453071 ####[facility] (DEFAULT)[address] [place] [address] RBC 4.22 x10 Normal 3.70-5.30 [facility] Comment on above: Performed By: #### 7 074955, 9084393, 8246283, 354072160, 3116084998, 77985131 ####[facility] (DEFAULT)[address] [place] [address] WBC 10.2 x10 Normal 3.5-10.5 [facility] Comment on above: Performed By: #### 7 195077, 9098621, 9659439, 373575419, 2648733866, 61709581 ####[facility] (DEFAULT)[address] [place] [address] CMP Standardon 07-09-2022 eGFR Non AA 53 mL/min/1.73m2 Invalid Interpretation Code [facility] Comment on above: Performed By: #### 7 101535, 0104146, 2739705, 528464904, 0185846973, 49983192 ####[facility] (DEFAULT)[address] [place] [address] eGFR AA >60 Invalid Interpretation Code [facility] Comment on above: Result Comment: Hospice Care Transitions Coordinator lokesh Kidney disease could be indicated at eGFRs of less than 60 ml/min/1.73m2. Kidney Failure is indicated at less than 15 ml/min/1.73m2 Performed By: #### 7 283132, 9847623, 9366534, 671817220, 8382734868, 04345777 ####[facility] (DEFAULT)[address] [place] [address] 07004 Albumin [Mass/Vol] 3.7 g/dL Normal 3.5-5.0 [facility] Comment on above: Performed By: #### 7 200809, 1398595, 0374437, 768772014, 5414629802, 78747589 ####[facility] (DEFAULT)[address] [place] [address] 61128 Albumin/Globulin [Mass ratio] 1.0 {ratio} Low 1.4-2.6 [facility] Comment on above: Performed By: #### 7 739205, 1985892, 0311048, 572683699, 3113903127, 63555031 ####[facility] (DEFAULT)[address] [place] [address] 91229 Alk Phos 61 IU/L Normal 32-91 [facility] Comment on above: Performed By: #### 7 750218, 6271054, 5864096, 799233766, 5171883506, 92568732 ####[facility] (DEFAULT)[address] [place] [address] 52953 ALT [Catalytic activity/Vol] 18.0 U/L Normal 17.0-63.0 [facility] Comment on above: Performed By: #### 7 028577, 7702638, 1940165, 030905414, 4457185700, 63536848 ####[facility] (DEFAULT)[address] [place] [address] 43962 Anion gap [Moles/Vol] 17.0 mmol/L Normal 5.0-19.0 [facility] Comment on above: Performed By: #### 7 547777, 9375190, 7110300, 086654605, 1691020249, 02415824 ####[facility] (DEFAULT)[address] [place] [address] 18595 AST [Catalytic activity/Vol] 17 U/L Normal 15-41 [facility] Comment on above: Performed By: #### 7 758083, 6826992, 3024375, 960912709, 5911485379, 73569995 ####[facility] (DEFAULT)[address] [place] [address] 42387 Bili Total 0.9 mg/dL Normal 0.3-1.2 [facility] Comment on above: Performed By: #### 7 338578, 7924238, 5536784, 578694359, 5307590289, 61505789 ####[facility] (DEFAULT)[address] [place] [address] 94654 Calcium [Mass/Vol] 9.2 mg/dL Normal 8.9-10.3 [facility] Comment on above: Performed By: #### 7 476215, 9635533, 5411163, 462217335, 4571975058, 37816356 ####[facility] (DEFAULT)[address] [place] [address] 56089 Chloride [Moles/Vol] 105 mmol/L Normal 101-111 [facility] Comment on above: Performed By: #### 7 265971, 9682940, 7280563, 103042896, 2491118174, 32709732 ####[facility] (DEFAULT)[address] [place] [address] 81975 CO2 [Moles/Vol] 19 mmol/L Low 21-32 [facility] Comment on above: Performed By: #### 7 292287, 5323504, 0818183, 991231684, 1842723346, 39646987 ####[facility] (DEFAULT)[address] [place] [address] 65538 Creatinine [Mass/Vol] 1.35 mg/dL High 0.90-1.30 [facility] Comment on above: Performed By: #### 7 389104, 0562849, 7658403, 300138026, 0356157212, 90644527 ####[facility] (DEFAULT)[address] [place] [address] 00886 Globulin (S) [Mass/Vol] 3.6 g/dL Normal 1.5-4.3 [facility] Comment on above: Performed By: #### 7 637202, 0937750, 2820592, 121593349, 8938119080, 72033547 ####[facility] (DEFAULT)[address] [place] [address] Glucose [Mass/Vol] 152.0 mg/dL High 74.0-118.0 [facility] Comment on above: Performed By: #### 7 612653, 1943519, 0290365, 307918214, 4645961523, 27757804 ####[facility] (DEFAULT)[address] [place] [address] 34540 Osmolality 305 mOsm/L Invalid Interpretation Code [facility] Comment on above: Performed By: #### 7 267951, 1327211, 3160881, 596568795, 1414018249, 10020944 ####[facility] (DEFAULT)[address] [place] [address] 59783 Potassium [Moles/Vol] 5.6 mmol/L High 3.6-5.1 [facility] Comment on above: Performed By: #### 7 913912, 9830101, 4040952, 871995710, 9666460784, 35187695 ####[facility] (DEFAULT)[address] [place] [address] 99122 Protein [Mass/Vol] 7.3 g/dL Normal 6.5-8.1 [facility] Comment on above: Performed By: #### 7 320621, 6835118, 6033420, 224352244, 5163194795, 80853165 ####[facility] (DEFAULT)[address] [place] [address] 11155 Sodium [Moles/Vol] 135.0 mmol/L Low 136.0-144.0 [facility] Comment on above: Performed By: #### 7 850089, 3624052, 2458566, 343599501, 2301137527, 51353956 ####[facility] (DEFAULT)[address] [place] [address] 56146 Urea nitrogen [Mass/Vol] 101 mg/dL High 8-26 [facility] Comment on above: Result Comment: Crit ical BUN 101 result called and read back ok to: 2S LISA SALDIVAR at: 05:53:11 07/09/2022 by: WALKER Performed By: #### 7 945021, 4580751, 9318880, 793651991, 4054895928, 39260963 ####[facility] (DEFAULT)[address] [place] [address] 63808 Urea nitrogen/Creatinine [Mass ratio] 75.0 mg/mg High 4.6-16.2 [facility] Comment on above: Performed By: #### 7 271214, 5403731, 3358281, 317472044, 3001552373, 13444449 ####[facility] (DEFAULT)[address] [place] [address] 89719 ED Clinical Summaryon 2021 ED Clinical Summary Normal [facility] ED Patient Education Noteon 07-09-2022 ED Patient Education Note Education Materials Normal [facility] ED Patient Summaryon 022 ED Patient Summary Normal [facility] Magnesiumon 07-09-2022 Magnesium [Mass/Vol] 2.32 mg/dL Normal 1.80-2.50 [facility] Comment on above: Performed By: #### 7 518208, 5354368, 8607770, 220403918, 1252777587, 71778199 ####[facility] (DEFAULT)[address] [place] [address] 63615 Nutrition Noteon 07-09-2022 Nutrition Note Normal [facility] POCT Glucose Levelon 022 Glucose [Mass/Vol] 251 mg/dL High 74-118 [facility] Comment on above: Performed By: #### 4 [id number] ####[facility] (DEFAULT)[address] [place] [address] 45563 Glucose [Mass/Vol] 214 mg/dL High 74-[address] [place] [address] Comment on above: Performed By: #### 4 [id number] ####[facility] (DEFAULT)[address] [place] [address] 95620 Glucose [Mass/Vol] 261 mg/dL High 74-118 [facility] Comment on above: Performed By: #### 4 [id number] ####[facility] (DEFAULT)[address] [place] [address] 39189 Glucose, POC See Comment Invalid Interpretation Code [address] [place] [address] Comment on above: Result Comment: Wron g Result per Ceci Vazquez on [address] Performed By: #### 4 [id number] ####[facility] (DEFAULT)[address] [place] [address] 61883 Glucose, POC See Comment Invalid Interpretation Code [address] [place] [address] Comment on above: Result Comment: Wron g Result per Ceci Vazquez on [address] Performed By: #### 4 [id number] ####[facility] (DEFAULT)[address] [place] [address] 31492 Glucose [Mass/Vol] 80 mg/dL Normal [address] [place] [address] Comment on above: Performed By: #### 4 [id number] ####[facility] (DEFAULT)[address] [place] [address] 01854 Glucose [Mass/Vol] 224 mg/dL High [address] Comment on above: Performed By: #### 4 [id number] ####[facility] (DEFAULT)[address] [place] [address] 03294 Glucose [Mass/Vol] 157 mg/dL High 74-118 [facility] Comment on above: Performed By: #### 4 [id number] ####[facility] (DEFAULT)[address] [place] [address] 76106 Glucose [Mass/Vol] 148 mg/dL High 74-118 [facility] Comment on above: Performed By: #### 4 [id number] ####[facility] (DEFAULT)[address] [place] [address] 36583 Glucose [Mass/Vol] 145 mg/dL High [address] Comment on above: Performed By: #### 4 [id number] ####[facility] (DEFAULT)[address] [place] [address] 97336 Glucose [Mass/Vol] 133 mg/dL High 74-118 [facility] Comment on above: Performed By: #### 4 [id number] ####[facility] (DEFAULT)[address] [place] [address] TSH w/ Reflex to FT4on 07-09 TSH Qn 1.97 m[IU]/L Normal 0.45-5.33 [facility] Comment on above: Result Comment: Gene ral Population (males and non- females, aged 21-88) 0.45 - 5.33 Females, 1st Trimester 0.05 - 3.70 Females, 2nd Trimester 0.31 - 4.35 Females, 3rd Trimester 0.41 - 5.18 Performed By: #### 7 970292, 0452539, 7113480, 515068569, 2017469619, 86971210 ####[facility] (DEFAULT)[address] [place] [address] Telemetry Stripson 2 Telemetry Strips [id number]#1.00 OTGTIFF [facility] UA [id number] 07-09-2022 UA Bacteria 2+ [facility] Comment on above: Order Comment: Urina lysis Microscopic order added on by [employer] Expert Rules system. Performed By: #### 5 8572829, 7419644, 7138253577 ####[facility] (DEFAULT)[address] [place] [address] 82183 UA RBC 0-2 [facility] Comment on above: Order Comment: Urina lysis Microscopic order added on by [employer] Expert Rules system. Performed By: #### 5 3718040, 0620507, [id number] ####[facility] (DEFAULT)[address] [place] [address] 42143 UA Squam Epi Rare [facility] Comment on above: Order Comment: Urina lysis Microscopic order added on by [employer] Expert Rules system. Performed By: #### 5 9730375, 4118423, [id number] ####[facility] (DEFAULT)[address] [place] [address] UA WBC 20-25 [facility] Comment on above: Order Comment: Urina lysis Microscopic order added on by Discern Expert Rules system. Performed By: #### 5 8312890, 1974897, 1087361624 ####[facility] (DEFAULT)[address] [place] [address] UA w Culture if Ind Standard on 07-09-2022 Breakpoint UA [facility] Comment on above: Order Comment: Autom atically placed with order Insert Flynn Cath Performed By: #### 5 3908225, 8890102, [id number] ####[facility] (DEFAULT)[address] [place] [address] 34784 Color (U) Yellow [facility] Comment on above: Order Comment: Autom atically placed with order Insert Flynn Cath Performed By: #### 5 1719093, 0751032, [id number] ####[facility] (DEFAULT)[address] [place] [address] Culture? Indicated Invalid Interpretation Code [facility] Comment on above: Order Comment: Autom atically placed with order Insert Flynn Cath Result Comment: Resu lt created by rule GL_MAGR_ADD_UA_CULT Result created by rule GL_MAGR_ADD_UA_CULT Result created by rule GL_MAGR_ADD_UA_CULT1 Result created by rule GL_MAGR_ADD_UA_CULT Performed By: #### 5 2618749, 1610630, [id number] ####[facility] (DEFAULT)[address] [place] [address] 29355 Glucose (U) [Mass/Vol] Negative [facility] Comment on above: Order Comment: Autom atically placed with order Insert Flynn Cath Performed By: #### 5 4022397, 4358958, [id number] ####[facility] (DEFAULT)[address] [place] [address] Ketones Ql (U) Negative [facility] Comment on above: Order Comment: Autom atically placed with order Insert Flynn Cath Performed By: #### 5 6894403, 3489552, [id number] ####[facility] (DEFAULT)[address] [place] [address] 62820 Micro? Indicated Invalid Interpretation Code [facility] Comment on above: Order Comment: Autom atically placed with order Insert Flynn Cath Result Comment: Resu lt created by rule GL_MAGR_ADD_UA_MICRO Performed By: #### 5 1691776, 1539710, [id number] ####[facility] (DEFAULT)[address] [place] [address] UA Bilirubin Negative Normal [facility] Comment on above: Order Comment: Autom atically placed with order Insert Flynn Cath Performed By: #### 5 7745140, 0864535, [id number] ####[facility] (DEFAULT)[address] [place] [address] UA Blood TRACE Abnormal NEGATIVE [facility] Comment on above: Order Comment: Autom atically placed with order Insert Flynn Cath Performed By: #### 5 6052217, 5660451, [id number] ####[facility] (DEFAULT)[address] [place] [address] UA Clarity CLEAR Normal CLEAR [facility] Comment on above: Order Comment: Autom atically placed with order Insert Flynn Cath Performed By: #### 5 2524232, 6277858, [id number] ####[facility] (DEFAULT)[address] [place] [address] UA Leuk Est MODERATE Abnormal NEGATIVE [facility] Comment on above: Order Comment: Autom atically placed with order Insert Flynn Cath Performed By: #### 5 6713515, 2046385, [id number] ####[facility] (DEFAULT)[address] [place] [address] UA Nitrite Positive Abnormal NEGATIVE [facility] Comment on above: Order Comment: Autom atically placed with order Insert Flynn Cath Performed By: #### 5 8682659, 2234265, [id number] ####[facility] (DEFAULT)[address] [place] [address] UA pH 5.5 Normal 5-8 [facility] Comment on above: Order Comment: Autom atically placed with order Insert Flynn Cath Performed By: #### 5 9611752, 9959358, [id number] ####[facility] (DEFAULT)[address] [place] [address] 09060 UA Protein TRACE Abnormal NEGATIVE [facility] Comment on above: Order Comment: Autom atically placed with order Insert Flynn Cath Performed By: #### 5 7384132, 6253794, [id number] ####[facility] (DEFAULT)[address] [place] [address] 82408 UA Spec Grav 1.020 Normal 1.001-1.035 [facility] Comment on above: Order Comment: Autom atically placed with order Insert Flynn Cath Performed By: #### 5 7330422, 2820046, [id number] ####[facility] (DEFAULT)[address] [place] [address] 60078 UA Urobilinogen 0.2 mg/dL Normal 0.2-1.0 [facility] Comment on above: Order Comment: Autom atically placed with order Insert Flynn Cath Performed By: #### 5 9596124, 2003768, [id number] ####[facility] (DEFAULT)[address] [place] [address] 71521 Urine Source Catheter Normal [facility] Comment on above: Order Comment: Autom atically placed with order Insert Flynn Cath Performed By: #### 5 8991270, 2736069, [id number] ####[facility] (DEFAULT)[address] [place] [address] 21322 Vit B12 Lvlon 07-09-2022 Vit B12 405 Normal 180-914 [facility] Comment on above: Performed By: #### 7 692275, 3364180, 9701735, 015705773, 1460710178, 20966139 ####[facility] (DEFAULT)[address] [place] [address] 89390 .Auto Diff 1on 07-08-2022 Auto Victoria % 4 % Normal 1-12 [facility] Comment on above: Performed By: #### 5 [id number], 0159084224, 24986825, 9644150821, 4699105, 7545505 ####[facility] (DEFAULT)[address] [place] [address] Baso Abs# 0.0 x10 Normal 0.0-0.2 [facility] Comment on above: Performed By: #### 5 [id number], 0586418835, 46886901, 1571873707, 5068788, 1239555 ####[facility] (DEFAULT)[address] [place] [address] Basophils/100 WBC (Bld) 0.2 % Normal 0.2-2.0 [facility] Comment on above: Performed By: #### 5 [id number], 4270198406, 23178364, 0469152666, 3628135, 3351516 ####[facility] (DEFAULT)[address] [place] [address] Eos Abs# 0.5 x10 High 0.0-0.4 [facility] Comment on above: Performed By: #### 5 [id number], 0852012818, 82121121, 4033999136, [id number] ####[facility] (DEFAULT)[address] [place] [id number] Eosinophils/100 WBC (Bld) 4.1 % High 0.9-4.0 [facility] Comment on above: Performed By: #### 5 [id number], [id number], [id number], [id number], [id number] ####[facility] (DEFAULT)[address] [place] [address] Lymph Abs# 1.9 x10 Normal 1.3-2.9 [facility] [facility] Comment on above: Performed By: #### 5 [id number], [id number], 08866110, 7454506815, 7108259, 2374631 ####[facility] (DEFAULT)[address] [place] [address] 69949 Lymphocytes/100 WBC (Bld) 17 % Normal 14-48 [facility] Comment on above: Performed By: #### 5 [id number], 7055554366, 65773082, 5700803481, 7605534, 6860037 ####[facility] (DEFAULT)[address] [place] [address] Victoria Abs# 0.4 x10 Normal 0.0-0.8 [facility] Comment on above: Performed By: #### 5 [id number], 9726110222, 29956047, 8064896505, 1806308, 4728272 ####[facility] (DEFAULT)[address] [place] [address] 45641 Neut Abs# 8.4 x10 Normal 1.5-9.2 [facility] Comment on above: Performed By: #### 5 [id number], 3867378941, 52170375, 4573347692, 7745467, 4142971 ####[facility] (DEFAULT)[address] [place] [address] Neutrophils/100 WBC (Bld) 75 % Normal 44-88 [facility] Comment on above: Performed By: #### 5 [id number], 8184460003, 48444537, 6012332527, 5443461, 8666345 ####[facility] (DEFAULT)[address] [place] [address] BNP.on 07-08-2022 Internal Control Pass Normal [facility] Comment on above: Performed By: #### 5 [id number], 0631211029, 52136000, 0062842327, 3914518, 7110690 ####[facility] (DEFAULT)[address] [place] [address] 41885 Natriuretic peptide B (Bld) [Mass/Vol] 318.0 pg/mL High 0.0-100.0 [facility] Comment on above: Result Comment: BNP results greater than 100 pg/mL are considered abnormal and suggestive of patients with CHF. Higher BNP concentrations measured in the first 72 hours after an acute coronary syndorme are associated with an increased risk of , myocardial infarction, and CHF. Performed By: #### 5 [id number], 7917379505, 23990510, 0655830545, 3493285, 4590431 ####[facility] (DEFAULT)[address] [place] [address] 19621 CBC w/ Auto Diffon Erythrocyte distribution width (RBC) [Ratio] 13.7 % Normal 11.5-15.0 [facility] Comment on above: Performed By: #### 5 [id number], 5442370092, 63494538, 3040005506, 7634482, 6490832 ####[facility] (DEFAULT)[address] [place] [address] Hematocrit (Bld) [Volume fraction] 43.1 % Normal 34.8-51.9 [facility] Comment on above: Performed By: #### 5 [id number], 3582027589, 59400244, 6276380349, 9563535, 7974164 ####[facility] (DEFAULT)[address] [place] [address] Hemoglobin (Bld) [Mass/Vol] 14.1 g/dL Normal 11.8-17.7 [facility] Comment on above: Performed By: #### 5 [id number], 2442039997, 99347412, 7857038163, 1518267, 7433503 ####[facility] (DEFAULT)[address] [place] [address] Instr WBC 11.2 x10 Invalid Interpretation Code [facility] Comment on above: Performed By: #### 5 [id number], 2761821411, 16333830, 8385647308, 7168312, 2754222 ####[facility] (DEFAULT)[address] [place] [address] 14129 Man Diff? Auto Normal [facility] Comment on above: Performed By: #### 5 [id number], 7553820656, 88936301, 1072162014, 8786680, 8440432 ####[facility] (DEFAULT)[address] [place] [address] 40307 MCH (RBC) [Entitic mass] 29 pg Normal 24-34 [facility] Comment on above: Performed By: #### 5 [id number], 7238784996, 33745278, 4840318335, 8593406, 5825452 ####[facility] (DEFAULT)[address] [place] [address] 29865 MCHC (RBC) [Mass/Vol] 33 g/dL Normal 26-37 [facility] Comment on above: Performed By: #### 5 [id number], 8971881205, 17264192, 8911959564, 5574606, 4884724 ####[facility] (DEFAULT)[address] [place] [address] 31185 MCV (RBC) [Entitic vol] 88 fL Normal 81-100 [facility] Comment on above: Performed By: #### 5 [id number], 7078155484, 55768316, 3877738843, 3956033, 7913782 ####[facility] (DEFAULT)[address] [place] [address] 44532 Platelet 278 x10 Normal 138-427 [facility] Comment on above: Performed By: #### 5 [id number], 1247734026, 71845906, 8754086964, 1219606, 1987920 ####[facility] (DEFAULT)[address] [place] [address] 94858 Platelet mean volume (Bld) [Entitic vol] 11.4 fL High 6.3-10.2 [facility] Comment on above: Performed By: #### 5 [id number], 8774757033, 46580610, 7718570089, 5291391, 5496335 ####[facility] (DEFAULT)[address] [place] [address] 24991 RBC 4.90 x10 Normal 3.70-5.30 [facility] Comment on above: Performed By: #### 5 [id number], 7265315755, 97973857, 0670771347, 1017353, 9502080 ####[facility] (DEFAULT)[address] [place] [address] 34462 WBC 11.2 x10 High 3.5-10.5 [facility] Comment on above: Performed By: #### 5 145141499, 7487943668, 68137182, 2215985527, 0195135, 4845214 ####[facility] (DEFAULT)[address] [place] [address] 42067 CMP Standardon 07-08-2022 Urea nitrogen [Mass/Vol] 100 mg/dL High 8-26 [facility] Comment on above: Result Comment: Resu lts confirmed by dilutionCritical BUN 100 result called and read back ok to: KERI MALDONADO RN IN ER at: 20:29:42 07/08/2022 by: SYLVIA Performed By: #### 5 [id number], 2936716167, 16672724, 4114077103, 2884799, 7116089 ####[facility] (DEFAULT)[address] [place] [address] 91074 eGFR Non AA 41 mL/min/1.73m2 Invalid Interpretation Code [facility] Comment on above: Performed By: #### 5 [id number], 9750743361, 68209130, 7310755908, 2366195, 6897975 ####[facility] (DEFAULT)[address] [place] [address] 71952 eGFR AA 49 mL/min/1.73m2 Invalid Interpretation Code [facility] Comment on above: Result Comment: Hospice Care Transitions Coordinator lokesh Kidney disease could be indicated at eGFRs of less than 60 ml/min/1.73m2. Kidney Failure is indicated at less than 15 ml/min/1.73m2 Performed By: #### 5 [id number], 2785747116, 36281568, 9860410563, 7336644, 5147623 ####[facility] (DEFAULT)[address] [place] [address] 39011 Albumin [Mass/Vol] 4.0 g/dL Normal 3.5-5.0 [facility] Comment on above: Performed By: #### 5 [id number], 0822825340, 32707744, 4317745056, 5208703, 4693058 ####[facility] (DEFAULT)[address] [place] [address] 79337 Albumin/Globulin [Mass ratio] 1.0 {ratio} Low 1.4-2.6 [facility] Comment on above: Performed By: #### 5 [id number], 8949109473, 09378494, 6663752835, 9689359, 3691120 ####[facility] (DEFAULT)[address] [place] [address] 43765 Alk Phos 70 IU/L Normal 32-91 [facility] Comment on above: Performed By: #### 5 [id number], 5816996099, 91314383, 3029626695, 1864186, 0033799 ####[facility] (DEFAULT)[address] [place] [address] 72530 ALT [Catalytic activity/Vol] 19.0 U/L Normal 17.0-63.0 [facility] Comment on above: Performed By: #### 5 [id number], 9312915218, 63820902, 6720881839, 8046558, 8253151 ####[facility] (DEFAULT)[address] [place] [address] 32122 Anion gap [Moles/Vol] 19.0 mmol/L Normal 5.0-19.0 [facility] Comment on above: Performed By: #### 5 [id number], 4464535252, 39629059, 3141620779, 7617334, 4524325 ####[facility] (DEFAULT)[address] [place] [address] 18747 AST [Catalytic activity/Vol] 20 U/L Normal 15-41 [facility] Comment on above: Performed By: #### 5 [id number], 3761981324, 89947475, 1543573801, 4506991, 8568892 ####[facility] (DEFAULT)[address] [place] [address] 21372 Bili Total 0.6 mg/dL Normal 0.3-1.2 [facility] Comment on above: Performed By: #### 5 865528496, 6125101771, 47405012, 6918189322, 7123308, 4476411 ####[facility] (DEFAULT)[address] [place] [address] 69824 Calcium [Mass/Vol] 9.5 mg/dL Normal 8.9-10.3 [facility] Comment on above: Performed By: #### 5 [id number], 2165163985, 64437906, 4597794902, 5494888, 8985475 ####[facility] (DEFAULT)[address] [place] [address] 66361 Chloride [Moles/Vol] 104 mmol/L Normal 101-111 [facility] Comment on above: Performed By: #### 5 484305882, 6005404312, 20986503, 6571760597, 6892051, 3213289 ####[facility] (DEFAULT)[address] [place] [address] 33928 CO2 [Moles/Vol] 19 mmol/L Low 21-32 [facility] Comment on above: Performed By: #### 5 [id number], 0628215575, 35216387, 6811880693, 1753578, 8463040 ####[facility] (DEFAULT)[address] [place] [address] 37112 Creatinine [Mass/Vol] 1.68 mg/dL High 0.90-1.30 [facility] Comment on above: Performed By: #### 5 609327054, 2944767969, 49703879, 2044733866, 9816803, 3158913 ####[facility] (DEFAULT)[address] [place] [address] 63745 Globulin (S) [Mass/Vol] 3.9 g/dL Normal 1.5-4.3 [facility] Comment on above: Performed By: #### 5 [id number], 7203189646, 07335109, 5859181230, 8763953, 8240044 ####[facility] (DEFAULT)[address] [place] [address] 29385 Glucose [Mass/Vol] 93.0 mg/dL Normal 74.0-118.0 [facility] Comment on above: Performed By: #### 5 036344698, 0728450720, 19417801, 1450109385, 5899251, 8672341 ####[facility] (DEFAULT)[address] [place] [address] 11056 Osmolality 304 mOsm/L Invalid Interpretation Code [facility] Comment on above: Performed By: #### 5 [id number], 3643211548, 87528595, 6853526400, 8546553, 8107154 ####[facility] (DEFAULT)[address] [place] [address] 48711 Potassium [Moles/Vol] 5.7 mmol/L High 3.6-5.1 [facility] Comment on above: Performed By: #### 5 [id number], 0770012192, 57665136, 0985919218, 6677027, 1443115 ####[facility] (DEFAULT)[address] [place] [address] 03244 Protein [Mass/Vol] 7.9 g/dL Normal 6.5-8.1 [facility] Comment on above: Performed By: #### 5 [id number], 8765483244, 77204628, 5766375818, 3910100, 7310984 ####[facility] (DEFAULT)[address] [place] [address] 81942 Sodium [Moles/Vol] 136.0 mmol/L Normal 136.0-144.0 [facility] Comment on above: Performed By: #### 5 940636189, 2322686339, 81924272, 6184981927, 3140546, 9869135 ####[facility] (DEFAULT)[address] [place] [address] 57671 Urea nitrogen/Creatinine [Mass ratio] 61.0 mg/mg High 4.6-16.2 [facility] Comment on above: Performed By: #### 5 [id number], 3979778178, 44386795, 1747879092, 8865728, 9166720 ####[facility] (DEFAULT)[address] [place] [address] 92581 ED Note-Nursingon 07-08-2022 ED Note-Nursing Dr. Choudhary placed IV in the Lt. hand after multiple attempts from multiple nurses. Normal [facility] ED Pre-Arrival Noteon 2021 ED Pre-Arrival Note Normal [facility] Lactic Acidon 07-08-2022 Lactic Acid 8.2 mg/dL Normal 4.5-19.8 [facility] Comment on above: Performed By: #### 2 [id number] ####[facility] (DEFAULT)[address] [place] [address] 60993 Magnesiumon 07-08-2022 Magnesium [Mass/Vol] 2.31 mg/dL Normal 1.80-2.50 [facility] Comment on above: Performed By: #### 5 [id number], 2774998354, 11554061, 9446019170, 9241506, 3165727 ####[facility] (DEFAULT)[address] [place] [address] POCT Glucose Levelon 022 Glucose [Mass/Vol] 92 mg/dL Normal 74-118 [facility] Comment on above: Performed By: #### 4 [id number] ####[facility] (DEFAULT)[address] [place] [address] Glucose [Mass/Vol] 80 mg/dL Normal 74-118 [facility] Comment on above: Performed By: #### 4 [id number] ####[facility] (DEFAULT)[address] [place] [address] Glucose [Mass/Vol] 72 mg/dL Low 74-118 [facility] Comment on above: Performed By: #### 4 [id number] ####[facility] (DEFAULT)[address] [place] [address] SARS-CoV-2 (COVID-19) PCRon 07-08-2022 Employed in healthcare? No Invalid Interpretation Code [facility] Comment on above: Performed By: #### 6 [id number] ####[facility] (DEFAULT)[address] [place] [address] Group care resident? No Invalid Interpretation Code [facility] Comment on above: Performed By: #### 6 [id number] ####[facility] (DEFAULT)[address] [place] [address] In ICU? No Invalid Interpretation Code [facility] Comment on above: Performed By: #### 6 [id number] ####[facility] (DEFAULT)[address] [place] [address] status? Not Invalid Interpretation Code [facility] Comment on above: Performed By: #### 6 [id number] ####[facility] (DEFAULT)[address] [place] [address] SARS-CoV-2 (COVID-19) RNA MANSI+probe Ql (Unsp spec) Not detected Normal Not Detected [facility] Comment on above: Result Comment: Perf ormed by PCR methodology. Performed By: #### 6 [id number] ####[facility] (DEFAULT)[address] [place] [address] SARS-CoV-2 (COVID-19) RNA MANSI+probe Ql (Unsp spec) No Invalid Interpretation Code [facility] Comment on above: Performed By: #### 6 [id number] ####[facility] (DEFAULT)[address] [place] [address] Symptomatic as defined by CDC? No Invalid Interpretation Code [facility] Comment on above: Performed By: #### 6 [id number] ####[facility] (DEFAULT)[address] [place] [address] TnI HSon 07-08-2022 Troponin I High Sensitivity 11 pg/mL Normal <=20 [facility] Comment on above: Result Comment: Male Baseline Delta 1Hr (Note pg/mL=ng/L) <20pg/mL 50-60% >20pg/mL 20%Female Baseline Delta 1Hr <15pg/mL 50-60% >15pg/mL 20%Other Baseline Delta 1Hr <18ng/mL 50-60% >18ng/mL 20%(Citizen Of [place] [employer] Guidelines May 2018) Performed By: #### 5 [id number], 9206999206, 37046427, 3307219304, 7216272, 2444700 ####[facility] (DEFAULT)[address] [place] [address] UA [id number] 07-08-2022 UA Amorph. Few Normal [facility] Comment on above: Order Comment: Urina lysis Microscopic order added on by Omnis[employer] Expert Rules system. Performed By: #### 1 [id number], 0157594, 93662661 ####[facility] (DEFAULT)[address] [place] [address] 87882 UA Bacteria 3+ [facility] Comment on above: Order Comment: Urina lysis Microscopic order added on by [employer] Expert Rules system. Performed By: #### 1 [id number], 6747979, 55471363 ####[facility] (DEFAULT)[address] [place] [address] 74447 UA RBC 0-2 [facility] Comment on above: Order Comment: Urina lysis Microscopic order added on by Discern Expert Rules system. Performed By: #### 1 [id number], 7972379, 72117735 ####[facility] (DEFAULT)[address] [place] [address] UA Squam Epi Few [facility] Comment on above: Order Comment: Urina lysis Microscopic order added on by Discern Expert Rules system. Performed By: #### 1 [id number], 3600016, 83278071 ####[facility] (DEFAULT)[address] [place] [address] UA WBC 10-15 [facility] Comment on above: Order Comment: Urina lysis Microscopic order added on by Discern Expert Rules system. Performed By: #### 1 [id number], 3802561, 15114277 ####[facility] (DEFAULT)[address] [place] [address] UA w Culture if Ind Standard on 07-08-2022 Breakpoint UA [facility] Comment on above: Performed By: #### 1 [id number], 5634391, 03765165 ####[facility] (DEFAULT)[address] [place] [address] Color (U) Yellow [facility] Comment on above: Performed By: #### 1 [id number], 3376255, 44124729 ####[facility] (DEFAULT)[address] [place] [address] Culture? Indicated Invalid Interpretation Code [facility] Comment on above: Result Comment: Resu lt created by rule GL_MAGR_ADD_UA_CULT Result created by rule GL_MAGR_ADD_UA_CULT Result created by rule GL_MAGR_ADD_UA_CULT1 Result created by rule GL_MAGR_ADD_UA_CULT Performed By: #### 1 [id number], 1566874, 85548480 ####[facility] (DEFAULT)[address] [place] [address] 91256 Glucose (U) [Mass/Vol] Negative [facility] Comment on above: Performed By: #### 1 [id number], 1064827, 53327920 ####[facility] (DEFAULT)[address] [place] [address] 89497 Ketones Ql (U) TRACE Normal [facility] Comment on above: Performed By: #### 1 [id number], 5777196, 92534110 ####[facility] (DEFAULT)[address] [place] [address] 39391 Micro? Indicated Normal [facility] Comment on above: Result Comment: Resu lt created by rule GL_MAGR_ADD_UA_MICRO Performed By: #### 1 [id number], 8295332, 79930088 ####[facility] (DEFAULT)[address] [place] [address] 31847 UA Bilirubin Negative Normal [facility] Comment on above: Performed By: #### 1 [id number], 0676852, 48254180 ####[facility] (DEFAULT)[address] [place] [address] 84746 UA Blood Negative Normal NEGATIVE [facility] Comment on above: Performed By: #### 1 727885063, 9586324, 35342856 ####[facility] (DEFAULT)[address] [place] [address] 69558 UA Clarity CLEAR Normal CLEAR [facility] Comment on above: Performed By: #### 1 [id number], 5328617, 64730682 ####[facility] (DEFAULT)[address] [place] [address] 61045 UA Leuk Est SMALL Abnormal NEGATIVE [facility] Comment on above: Performed By: #### 1 [id number], 5083756, 25922977 ####[facility] (DEFAULT)[address] [place] [address] 76482 UA Nitrite Positive Abnormal NEGATIVE [facility] Comment on above: Performed By: #### 1 [id number], 9702805, 19213974 ####[facility] (DEFAULT)[address] [place] [address] 28095 UA pH 6.0 Normal 5-8 [facility] Comment on above: Performed By: #### 1 401847743, 6695734, 57745362 ####[facility] (DEFAULT)[address] [place] [address] UA Protein TRACE Abnormal NEGATIVE [facility] Comment on above: Performed By: #### 1 [id number], 3679038, 46631834 ####[facility] (DEFAULT)[address] [place] [address] UA Spec Grav 1.015 Normal 1.001-1.035 [facility] Comment on above: Performed By: #### 1 [id number], 3878856, 00712407 ####[facility] (DEFAULT)[address] [place] [address] 31739 UA Urobilinogen 0.2 mg/dL Normal 0.2-1.0 [facility] Comment on above: Performed By: #### 1 [id number], 7444864, 28708308 ####[facility] (DEFAULT)[address] [place] [address] 76880 Urine Source Clean Catch Normal [facility] Comment on above: Performed By: #### 1 [id number], 3800973, 26591989 ####[facility] (DEFAULT)[address] [place] [address] 12467 XR Chest 2 Viewson 2 XR Chest 2 Views [facility] Progress Note - Nurseon 06-06 Progress Note - Nurse [facility] Coding Summaryon 06-11-2022 Coding Summary [facility] Provider Orderson 06-06-2022 Provider Orders [id number] [facility] 2 Rad - MRI Report [id number]#[id number] [facility] MRI Spine Lumbar w/o Contras ton 06-04-2022 MRI Spine Lumbar w/o Contrast [facility] Coding Summaryon 05-07-2022 Coding Summary [facility] Cult,Bloodon 09-13-2019 Cult,Blood Specimen Description .BLOOD Special Requests LT HAND 17ML Culture NO GROWTH 6 DAYS Report Status FINAL 09/13/2019 [facility] Comment on above: Performed By: #### C DP, LACTIC, CRP, CMPX, BH #### [facility] [employer] [address] [place] [address] [phone] Escrow Assistant: Sony gAuilar MD Cult,Blood Specimen Description .BLOOD Special Requests RT HAND 15ML Culture NO GROWTH 6 DAYS Report Status FINAL 09/13/2019 [facility] Comment on above: Performed By: #### C DP, LACTIC, CRP, CMPX, #### [facility] [employer] [address] [place] [address] [phone] Escrow Assistant: Sony Aguilar MD Cult,Tissueon 09-11-2019 Cult,Tissue Specimen Description .TISSUE LEFT .GROIN Special Requests NOT REPORTED Direct Exam NO NEUTROPHILS SEEN MIXED BACTERIAL MORPHOTYPES SEEN ON GRAM STAIN. Culture NORMAL TAWNYA MIXED ANAEROBIC TAWNYA Report Status FINAL 09/11/2019 [facility] Comment on above: Performed By: #### C DP, LACTIC, CRP, CMPX, #### [facility] [employer] [address] [place] [address] [phone] Escrow Assistant: Sony Aguilar MD Cult,Aerobe/Anaerobeon 09-10 Cult,Aerobe/Anaerobe Specimen Descriptio n .GROIN SWAB LEFT Special Requests NOT REPORTED Direct Exam RARE NEUTROPHILS MIXED BACTERIAL MORPHOTYPES SEEN ON GRAM STAIN. Culture NORMAL SKIN TAWNYA MIXED ANAEROBIC TAWNYA Report Status FINAL 09/10/2019 [facility] Comment on above: Performed By: #### C DP, LACTIC, CRP, CMPX, #### [facility] [employer] [address] [place] [address] [phone] Escrow Assistant: Sony Aguilar MD POC Glucose Fingerstickon Glucose [Mass/Vol] 238 mg/dL High 75 - 110 mg/dL [place] Interpretation and review of laboratory results Abnormal [place] Glucose [Mass/Vol] 125 mg/dL High 75 - 110 mg/dL [place] Interpretation and review of laboratory results Abnormal [place] Basic Metab w/rfx MGon 09-09 (cont.) Normal [facility] Comment on above: Result Comment: Aver age GFR for 60-69 years old: 85 mL/min/1.73sq m Chronic Kidney Disease: <60 mL/min/1.73sq m Kidney failure: <15 mL/min/1.73sq m eGFR calculated using average adult body mass. Additional eGFR calculator available at: http://www.[employer]/multiple_crcl_2012.htm Performed By: #### C DP, LACTIC, CRP, CMPX, #### [address] [address] Escrow Assistant: Sony Aguilar MD Anion gap [Moles/Vol] 12 mmol/L Normal 9-17 [facility] Comment on above: Performed By: #### C DP, LACTIC, CRP, CMPX, #### [address] [address] Escrow Assistant: Sony Aguilar MD Calcium [Mass/Vol] 7.9 mg/dL Low 8.6-10.4 [facility] Comment on above: Performed By: #### C DP, LACTIC, CRP, CMPX, #### [facility] [employer] [address] [place] [address] [phone] Escrow Assistant: Sony Aguilar MD Chloride [Moles/Vol] 101 mmol/L Normal 98-107 [facility] Comment on above: Performed By: #### C DP, LACTIC, CRP, CMPX, #### [facility] [employer] [address] [place] [address] [phone] Escrow Assistant: Sony Aguilar MD CO2 [Moles/Vol] 24 mmol/L Normal 20-31 [facility] Comment on above: Performed By: #### C DP, LACTIC, CRP, CMPX, #### [facility] [employer] [address] [place] [address] [phone] Escrow Assistant: Sony Aguilar MD Creatinine [Mass/Vol] 0.84 mg/dL Normal 0.70-1.20 [facility] Comment on above: Performed By: #### C DP, LACTIC, CRP, CMPX, #### [facility] [address] [place] [address] Escrow Assistant: Sony Aguilar MD GFR, Amer >60 Normal >60 [facility] Comment on above: Performed By: #### C DP, LACTIC, CRP, CMPX, #### [facility] [address] [place] [address] Escrow Assistant: Sony Aguilar MD GFR,non Amer >60 Normal >60 [facility] Comment on above: Performed By: #### C DP, LACTIC, CRP, CMPX, #### [address] [address] Escrow Assistant: Sony Aguilar MD Glucose [Mass/Vol] 181 mg/dL High 70-99 [facility] Comment on above: Performed By: #### C DP, LACTIC, CRP, CMPX, #### [address] [address] Escrow Assistant: Sony Aguilar MD Potassium [Moles/Vol] 4.1 mmol/L Normal 3.7-5.3 [facility] Comment on above: Performed By: #### C DP, LACTIC, CRP, CMPX, #### [facility] [address] [place] [address] Escrow Assistant: Sony Aguilar MD Sodium [Moles/Vol] 137 mmol/L Normal 135-144 [facility] Comment on above: Performed By: #### C DP, LACTIC, CRP, CMPX, #### [facility] [address] [place] [address] Escrow Assistant: Sony Aguilar MD Urea nitrogen [Mass/Vol] 22 mg/dL Normal 8-23 [facility] Comment on above: Performed By: #### C DP, LACTIC, CRP, CMPX, #### [facility] [address] [place], [place] [phone] Escrow Assistant: Sony Aguilar MD BUN/CRE Ratio NOT REPORTED Normal 9-20 [facility] Comment on above: Performed By: #### C DP, LACTIC, CRP, CMPX, #### [facility] [address] [place], [place] [phone] Escrow Assistant: Sony Aguilar MD Staging: NOT REPORTED Normal [facility] Comment on above: Performed By: #### C DP, LACTIC, CRP, CMPX, #### [facility] [address] [place], [place] [phone] Escrow Assistant: Sony Aguilar MD Basic Metabolic Panel w/ Ref eduard to MGon 09-09-2019 Anion gap [Moles/Vol] 12 mmol/L 9 - 17 mmol/L [place] Bun/Cre Ratio NOT REPORTED [place] Calcium [Mass/Vol] 7.9 mg/dL Low 8.6 - 10. 4 mg/dL [place] Chloride [Moles/Vol] 101 mmol/L 98 - 10 7 mmol/L [place] CO2 [Moles/Vol] 24 mmol/L 20 - 31 mmol/L [place] Creatinine [Mass/Vol] 0.84 mg/dL 0.7 - 1.2 mg/dL [place] GFR >60 >60 mL/min [place] GFR Non- >60 >60 mL/min [place] GFR/1.73 sq M predicted among non-blacks MDRD (S/P/Bld) [Vol rate/Area] [place] Comment on above: Average GFR for 60-6 9 years old: 85 mL/min/1.73sq m Chronic Kidney Disease: <60 mL/min/1.73sq m Kidney failure: <15 mL/min/1.73sq m eGFR calculated using average adult body mass. Additional eGFR calculator available at: http://www.Hostway/multiple_crcl_2012.htm GFR/1.73 sq M predicted among non-blacks MDRD (S/P/Bld) [Vol rate/Area] NOT REPORTED [place] Glucose [Mass/Vol] 181 mg/dL High 70 - 99 mg/dL [place] Interpretation and review of laboratory results Abnormal [place] Potassium [Moles/Vol] 4.1 mmol/L 3.7 - 5.3 mmol/L [place] Sodium [Moles/Vol] 137 mmol/L 135 - 144 mmol/L [place] Urea nitrogen [Mass/Vol] 22 mg/dL 8 - 23 mg/dL [place] CBC auto differentialon 12-0 Basophils (Bld) [#/Vol] 0.04 10*3/uL [place] Basophils/100 WBC (Bld) 1 % 0 - 2 % [place] Differential Type NOT REPORTED [place] Eosinophils (Bld) [#/Vol] 0.29 10*3/uL [place] Eosinophils/100 WBC (Bld) 3 % 1 - 4 % [place] Erythrocyte distribution width (RBC) [Ratio] 12.1 % 11.8 - 14.4 % [place] Hematocrit (Bld) [Volume fraction] 34.8 % Low 40.7 - 50.3 % [place] Hemoglobin (Bld) [Mass/Vol] 11.7 g/dL Low 13 - 17 g/dL [place] Immature granulocytes (Bld) [#/Vol] 1 % High 0 [place] Immature granulocytes (Bld) [#/Vol] 0.05 10*3/uL [place] Interpretation and review of laboratory results Abnormal [place] Lymphocytes (Bld) [#/Vol] 1.49 10*3/uL [place] Lymphocytes/100 WBC (Bld) 17 % Low 24 - 43 % [place] MCH (RBC) [Entitic mass] 29.6 pg 25.2 - 33.5 pg [place] MCHC (RBC) [Mass/Vol] 33.6 g/dL 28.4 - 34.8 g/dL [place] MCV (RBC) [Entitic vol] 88.1 fL 82.6 - 102.9 fL [place] Monocytes (Bld) [#/Vol] 0.81 10*3/uL [place] Monocytes/100 WBC (Bld) 9 % 3 - 12 % [place] Platelet mean volume (Bld) [Entitic vol] 11.7 fL 8.1 - 13.5 fL [place] Platelets (Bld) [#/Vol] NOT REPORTED [place] Platelets (Bld) [#/Vol] 248 10*3/uL [place] RBC (Bld) [#/Vol] 3.95 10*6/uL Low 4.21 - 5.7 7 m/uL [place] RBC morphology finding Nom (Bld) NOT REPORTED [place] Segmented neutrophils/100 WBC (Bld) 69 % High 36 - 65 % [place] Segs Absolute 5.94 [place] WBC (Bld) [#/Vol] 0.0 10*3/uL 0.0 per 10 0 WBC [place] WBC (Bld) [#/Vol] 8.6 10*3/uL [place] WBC Morphology NOT REPORTED [place] CBC with Diffon 09-09-2019 Abs. Basophil 0.04 k/uL Normal 0.00-0.20 [facility] Comment on above: Performed By: #### C DP, LACTIC, CRP, CMPX, BH #### [facility] [facility] [place] [address] Escrow Assistant: Sony Aguilar MD Abs.Imm.Granulocyte 0.05 k/uL Normal 0.00-0.30 [facility] Comment on above: Performed By: #### C DP, LACTIC, CRP, CMPX, #### [address] [address] Escrow Assistant: Sony Aguilar MD Abs.Neutrophil (Seg) 5.94 k/uL Normal 1.50-8.10 [facility] Comment on above: Performed By: #### C DP, LACTIC, CRP, CMPX, #### [place] [address] Escrow Assistant: Sony Aguilar MD Basophils/100 WBC (Bld) 1 % Normal 0-2 [facility] Comment on above: Performed By: #### C DP, LACTIC, CRP, CMPX, #### [place] [address] Escrow Assistant: Sony Aguilar MD Eosinophils (Bld) [#/Vol] 0.29 10*3/uL Normal 0.00-0.44 [facility] Comment on above: Performed By: #### C DP, LACTIC, CRP, CMPX, #### [place] [address] Escrow Assistant: Sony Aguilar MD Eosinophils/100 WBC (Bld) 3 % Normal 1-4 [facility] Comment on above: Performed By: #### C DP, LACTIC, CRP, CMPX, #### [place] [address] Escrow Assistant: Sony Aguilar MD Erythrocyte distribution width (RBC) [Ratio] 12.1 % Normal 11.8-14.4 [facility] Comment on above: Performed By: #### C DP, LACTIC, CRP, CMPX, #### [address] [address] Escrow Assistant: Sony Aguilar MD Hematocrit (Bld) [Volume fraction] 34.8 % Low 40.7-50.3 [facility] Comment on above: Performed By: #### C DP, LACTIC, CRP, CMPX, #### [address] [address] Escrow Assistant: Sony Aguilar MD Hemoglobin (Bld) [Mass/Vol] 11.7 g/dL Low 13.0-17.0 [facility] Comment on above: Performed By: #### C DP, LACTIC, CRP, CMPX, #### [address] [address] Escrow Assistant: Sony Aguilar MD Immature granulocytes (Bld) [#/Vol] 1 % High 0 [facility] Comment on above: Performed By: #### C DP, LACTIC, CRP, CMPX, #### [address] [address] Escrow Assistant: Sony Aguilar MD Lymphocytes (Bld) [#/Vol] 1.49 10*3/uL Normal 1.10-3.70 [facility] Comment on above: Performed By: #### C DP, LACTIC, CRP, CMPX, #### [address] [address] Escrow Assistant: Sony Aguilar MD Lymphocytes/100 WBC (Bld) 17 % Low 24-43 [facility] Comment on above: Performed By: #### C DP, LACTIC, CRP, CMPX, #### [address] [address] Escrow Assistant: Sony Aguilar MD MCH (RBC) [Entitic mass] 29.6 pg Normal 25.2-33.5 [facility] Comment on above: Performed By: #### C DP, LACTIC, CRP, CMPX, #### [address] [address] Escrow Assistant: Sony Aguilar MD MCHC (RBC) [Mass/Vol] 33.6 g/dL Normal 28.4-34.8 [facility] Comment on above: Performed By: #### C DP, LACTIC, CRP, CMPX, #### [address] [address] Escrow Assistant: Sony Aguilar MD MCV (RBC) [Entitic vol] 88.1 fL Normal 82.6-102.9 [facility] Comment on above: Performed By: #### C DP, LACTIC, CRP, CMPX, #### [address] [address] Escrow Assistant: Sony Aguilar MD Monocytes (Bld) [#/Vol] 0.81 10*3/uL Normal 0.10-1.20 [facility] Comment on above: Performed By: #### C DP, LACTIC, CRP, CMPX, #### [address] [address] Escrow Assistant: Sony Aguilar MD Monocytes/100 WBC (Bld) 9 % Normal 3-12 [facility] Comment on above: Performed By: #### C DP, LACTIC, CRP, CMPX, #### [address] [address] Escrow Assistant: Sony Aguilar MD Neutrophil (Seg) 69 % High 36-65 [facility] Comment on above: Performed By: #### C DP, LACTIC, CRP, CMPX, #### [address] [address] Escrow Assistant: Sony Aguilar MD NRBC Automated 0.0 per 100 WBC Normal 0.0 [facility] Comment on above: Performed By: #### C DP, LACTIC, CRP, CMPX, #### [address] [address] Escrow Assistant: Sony Aguilar MD Platelet mean volume (Bld) [Entitic vol] 11.7 fL Normal 8.1-13.5 [facility] Comment on above: Performed By: #### C DP, LACTIC, CRP, CMPX, #### [address] [address] Escrow Assistant: Sony Aguilar MD Platelets (Bld) [#/Vol] 248 10*3/uL Normal 138-453 [facility] Comment on above: Performed By: #### C DP, LACTIC, CRP, CMPX, #### [address] [address] Escrow Assistant: Sony Aguilar MD RBC (Bld) [#/Vol] 3.95 10*6/uL Low 4.21-5.77 [facility] Comment on above: Performed By: #### C DP, LACTIC, CRP, CMPX, #### [address] [address] Escrow Assistant: Sony Aguilar MD WBC (Bld) [#/Vol] 8.6 10*3/uL Normal 3.5-11.3 [facility] Comment on above: Performed By: #### C DP, LACTIC, CRP, CMPX, #### [address] [address] Escrow Assistant: Sony Aguilar MD Auto Diff Performed NOT REPORTED Normal [facility] Comment on above: Performed By: #### C DP, LACTIC, CRP, CMPX, #### [address] [address] Escrow Assistant: Sony Aguilar MD Platelets (Bld) [#/Vol] NOT REPORTED Normal [facility] Comment on above: Performed By: #### C DP, LACTIC, CRP, CMPX, #### [address] [address] Escrow Assistant: Sony Aguilar MD RBC morphology finding Nom (Bld) NOT REPORTED Normal [facility] Comment on above: Performed By: #### C DP, LACTIC, CRP, CMPX, BH #### [employer] [address] [place], [place] [phone] Escrow Assistant: Sony Aguilar MD WBC Morphology NOT REPORTED Normal [facility] Comment on above: Performed By: #### C DP, LACTIC, CRP, CMPX, #### [employer] [address] [place], [place] [phone] Escrow Assistant: Sony Aguilar MD POC Glucose Fingerstickon Glucose [Mass/Vol] 212 mg/dL High 75 - 110 mg/dL [place] Interpretation and review of laboratory results Abnormal [place] Glucose [Mass/Vol] 235 mg/dL High 75 - 110 mg/dL [place] Interpretation and review of laboratory results Abnormal [place] Glucose [Mass/Vol] 207 mg/dL High 75 - 110 mg/dL [place] Interpretation and review of laboratory results Abnormal [place] Glucose [Mass/Vol] 202 mg/dL High 75 - 110 mg/dL [place] Interpretation and review of laboratory results Abnormal [place] Glucose [Mass/Vol] 214 mg/dL High 75 - 110 mg/dL [place] Interpretation and review of laboratory results Abnormal [place] Basic Metab w/rfx MGon 09-08 (cont.) Normal [facility] Comment on above: Result Comment: Aver age GFR for 60-69 years old: 85 mL/min/1.73sq m Chronic Kidney Disease: <60 mL/min/1.73sq m Kidney failure: <15 mL/min/1.73sq m eGFR calculated using average adult body mass. Additional eGFR calculator available at: http://www.Mitro.SMIC/multiple_crcl_2012.htm Performed By: #### C DP, LACTIC, CRP, CMPX, BH #### [employer] [address] [place] [address] Escrow Assistant: Sony Aguilar MD Anion gap [Moles/Vol] 13 mmol/L Normal 9-17 [facility] Comment on above: Performed By: #### C DP, LACTIC, CRP, CMPX, #### [address] [address] Escrow Assistant: Sony Aguilar MD Calcium [Mass/Vol] 7.4 mg/dL Low 8.6-10.4 [facility] Comment on above: Performed By: #### C DP, LACTIC, CRP, CMPX, #### [address] [address] Escrow Assistant: Sony Aguilar MD Chloride [Moles/Vol] 105 mmol/L Normal 98-107 [facility] Comment on above: Performed By: #### C DP, LACTIC, CRP, CMPX, #### [address] [address] Escrow Assistant: Sony Aguilar MD CO2 [Moles/Vol] 19 mmol/L Low 20-31 [facility] Comment on above: Performed By: #### C DP, LACTIC, CRP, CMPX, #### [address] [address] Escrow Assistant: Sony Aguilar MD Creatinine [Mass/Vol] 0.99 mg/dL Normal 0.70-1.20 [facility] Comment on above: Performed By: #### C DP, LACTIC, CRP, CMPX, #### [facility] [employer] [address] [place] [address] Escrow Assistant: Sony Aguilar MD GFR, Amer >60 Normal >60 [facility] Comment on above: Performed By: #### C DP, LACTIC, CRP, CMPX, #### [facility] [address] [place] [address] Escrow Assistant: Sony Aguilar MD GFR,non Amer >60 Normal >60 [facility] Comment on above: Performed By: #### C DP, LACTIC, CRP, CMPX, #### [address] [address] Escrow Assistant: Sony Aguilar MD Glucose [Mass/Vol] 111 mg/dL High 70-99 [facility] Comment on above: Performed By: #### C DP, LACTIC, CRP, CMPX, #### [address] [address] Escrow Assistant: Sony Aguilar MD Potassium [Moles/Vol] 3.9 mmol/L Normal 3.7-5.3 [facility] Comment on above: Performed By: #### C DP, LACTIC, CRP, CMPX, #### [address] [address] Escrow Assistant: Sony Aguilar MD Sodium [Moles/Vol] 137 mmol/L Normal 135-144 [facility] Comment on above: Performed By: #### C DP, LACTIC, CRP, CMPX, #### [address] [address] Escrow Assistant: Sony Aguilar MD Urea nitrogen [Mass/Vol] 29 mg/dL High 8- [facility] Comment on above: Performed By: #### C DP, LACTIC, CRP, CMPX, #### [address] [address] Escrow Assistant: Sony Aguilar MD BUN/CRE Ratio NOT REPORTED Normal - [facility] Comment on above: Performed By: #### C DP, LACTIC, CRP, CMPX, #### [address] [address] Escrow Assistant: Sony Aguilar MD Staging: NOT REPORTED Normal [facility] Comment on above: Performed By: #### C DP, LACTIC, CRP, CMPX, #### [facility] [address] [place] [address] Escrow Assistant: Sony Aguilar MD Basic Metabolic Panel w/ Ref eduard to MGon 09-08-2019 Anion gap [Moles/Vol] 13 mmol/L 9 - 17 mmol/L [place] Bun/Cre Ratio NOT REPORTED [place] Calcium [Mass/Vol] 7.4 mg/dL Low 8.6 - 10. 4 mg/dL [place] Chloride [Moles/Vol] 105 mmol/L 98 - 10 7 mmol/L [place] CO2 [Moles/Vol] 19 mmol/L Low 20 - 31 mmol/L [place] Creatinine [Mass/Vol] 0.99 mg/dL 0.7 - 1.2 mg/dL [place] GFR >60 >60 mL/min [place] GFR Non- >60 >60 mL/min [place] GFR/1.73 sq M predicted among non-blacks MDRD (S/P/Bld) [Vol rate/Area] [place] Comment on above: Average GFR for 60-6 9 years old: 85 mL/min/1.73sq m Chronic Kidney Disease: <60 mL/min/1.73sq m Kidney failure: <15 mL/min/1.73sq m eGFR calculated using average adult body mass. Additional eGFR calculator available at: http://www.Mitro.SMIC/multiple_crcl_2012.htm GFR/1.73 sq M predicted among non-blacks MDRD (S/P/Bld) [Vol rate/Area] NOT REPORTED [place] Glucose [Mass/Vol] 111 mg/dL High 70 - 99 mg/dL [place] Interpretation and review of laboratory results Abnormal [place] Potassium [Moles/Vol] 3.9 mmol/L 3.7 - 5.3 mmol/L [place] Sodium [Moles/Vol] 137 mmol/L 135 - 144 mmol/L [place] Urea nitrogen [Mass/Vol] 29 mg/dL High 8 - 23 mg/dL [place] CBC auto differentialon 12-0 Basophils (Bld) [#/Vol] 10*3/uL [place] Basophils/100 WBC (Bld) 0 % 0 - 2 % [place] Differential Type NOT REPORTED [place] Eosinophils (Bld) [#/Vol] 0.15 10*3/uL [place] Eosinophils/100 WBC (Bld) 2 % 1 - 4 % [place] Erythrocyte distribution width (RBC) [Ratio] 12.0 % 11.8 - 14.4 % [place] Hematocrit (Bld) [Volume fraction] 34.8 % Low 40.7 - 50.3 % [place] Hemoglobin (Bld) [Mass/Vol] 11.0 g/dL Low 13 - 17 g/dL [place] Immature granulocytes (Bld) [#/Vol] 1 % High 0 [place] Immature granulocytes (Bld) [#/Vol] 0.05 10*3/uL [place] Interpretation and review of laboratory results Abnormal [place] Lymphocytes (Bld) [#/Vol] 1.79 10*3/uL [place] Lymphocytes/100 WBC (Bld) 19 % Low 24 - 43 % [place] MCH (RBC) [Entitic mass] 29.4 pg 25.2 - 33.5 pg [place] MCHC (RBC) [Mass/Vol] 31.6 g/dL 28.4 - 34.8 g/dL [place] MCV (RBC) [Entitic vol] 93.0 fL 82.6 - 102.9 fL [place] Monocytes (Bld) [#/Vol] 0.82 10*3/uL [place] Monocytes/100 WBC (Bld) 9 % 3 - 12 % [place] Platelet mean volume (Bld) [Entitic vol] 12.0 fL 8.1 - 13.5 fL [place] Platelets (Bld) [#/Vol] NOT REPORTED [place] Platelets (Bld) [#/Vol] 210 10*3/uL [place] RBC (Bld) [#/Vol] 3.74 10*6/uL Low 4.21 - 5.7 7 m/uL [place] RBC morphology finding Nom (Bld) NOT REPORTED [place] Segmented neutrophils/100 WBC (Bld) 71 % High 36 - 65 % [place] Segs Absolute 6.80 [place] WBC (Bld) [#/Vol] 9.6 10*3/uL [place] WBC (Bld) [#/Vol] 0.0 10*3/uL 0.0 per 10 0 WBC [place] WBC Morphology NOT REPORTED [place] CBC with Diffon 09-08-2019 Abs. Basophil <0.03 Normal 0.00-0.20 [facility] Comment on above: Performed By: #### C DP, LACTIC, CRP, CMPX, #### [facility] [employer] [address] [place] [address] Escrow Assistant: Sony Aguilar MD Abs.Imm.Granulocyte 0.05 k/uL Normal 0.00-0.30 [facility] Comment on above: Performed By: #### C DP, LACTIC, CRP, CMPX, #### [facility] [employer] [address] [place] [address] Escrow Assistant: Sony Aguilar MD Abs.Neutrophil (Seg) 6.80 k/uL Normal 1.50-8.10 [facility] Comment on above: Performed By: #### C DP, LACTIC, CRP, CMPX, #### [facility] [employer] [address] [place] [phone] Escrow Assistant: Sony Aguilar MD Basophils/100 WBC (Bld) 0 % Normal 0-2 [facility] Comment on above: Performed By: #### C DP, LACTIC, CRP, CMPX, #### [address] [address] Escrow Assistant: Sony Aguilar MD Eosinophils (Bld) [#/Vol] 0.15 10*3/uL Normal 0.00-0.44 [facility] Comment on above: Performed By: #### C DP, LACTIC, CRP, CMPX, #### [address] [address] Escrow Assistant: Sony Aguilar MD Eosinophils/100 WBC (Bld) 2 % Normal 1-4 [facility] Comment on above: Performed By: #### C DP, LACTIC, CRP, CMPX, #### [address] [address] Escrow Assistant: Sony Aguilar MD Erythrocyte distribution width (RBC) [Ratio] 12.0 % Normal 11.8-14.4 [facility] Comment on above: Performed By: #### C DP, LACTIC, CRP, CMPX, #### [facility] [employer] [address] [place] [address] Escrow Assistant: Sony Aguilar MD Hematocrit (Bld) [Volume fraction] 34.8 % Low 40.7-50.3 [facility] Comment on above: Performed By: #### C DP, LACTIC, CRP, CMPX, #### [facility] [employer] [address] [place] [address] Escrow Assistant: Sony Aguilar MD Hemoglobin (Bld) [Mass/Vol] 11.0 g/dL Low 13.0-17.0 [facility] Comment on above: Performed By: #### C DP, LACTIC, CRP, CMPX, #### [address] [address] Escrow Assistant: Sony Aguilar MD Immature granulocytes (Bld) [#/Vol] 1 % High 0 [facility] Comment on above: Performed By: #### C DP, LACTIC, CRP, CMPX, #### [address] [phone] Escrow Assistant: Sony Aguilar MD Lymphocytes (Bld) [#/Vol] 1.79 10*3/uL Normal 1.10-3.70 [facility] Comment on above: Performed By: #### C DP, LACTIC, CRP, CMPX, #### [address] [address] Escrow Assistant: Sony Aguilar MD Lymphocytes/100 WBC (Bld) 19 % Low 24-43 [facility] Comment on above: Performed By: #### C DP, LACTIC, CRP, CMPX, #### [address] [address] Escrow Assistant: Sony Aguilar MD MCH (RBC) [Entitic mass] 29.4 pg Normal 25.2-33.5 [facility] Comment on above: Performed By: #### C DP, LACTIC, CRP, CMPX, #### [address] [address] Escrow Assistant: Sony Aguilar MD MCHC (RBC) [Mass/Vol] 31.6 g/dL Normal 28.4-34.8 [facility] Comment on above: Performed By: #### C DP, LACTIC, CRP, CMPX, #### [address] [address] Escrow Assistant: Sony Aguilar MD MCV (RBC) [Entitic vol] 93.0 fL Normal 82.6-102.9 [facility] Comment on above: Performed By: #### C DP, LACTIC, CRP, CMPX, #### [address] [address] Escrow Assistant: Sony Aguilar MD Monocytes (Bld) [#/Vol] 0.82 10*3/uL Normal 0.10-1.20 [facility] Comment on above: Performed By: #### C DP, LACTIC, CRP, CMPX, #### [address] [address] Escrow Assistant: Sony Aguilar MD Monocytes/100 WBC (Bld) 9 % Normal 3-12 [facility] Comment on above: Performed By: #### C DP, LACTIC, CRP, CMPX, #### [address] [address] Escrow Assistant: Sony Aguilar MD Neutrophil (Seg) 71 % High 36-65 [facility] Comment on above: Performed By: #### C DP, LACTIC, CRP, CMPX, #### [address] [address] Escrow Assistant: Sony Aguilar MD NRBC Automated 0.0 per 100 WBC Normal 0.0 [facility] Comment on above: Performed By: #### C DP, LACTIC, CRP, CMPX, #### [address] [address] Escrow Assistant: Sony Aguilar MD Platelet mean volume (Bld) [Entitic vol] 12.0 fL Normal 8.1-13.5 [facility] Comment on above: Performed By: #### C DP, LACTIC, CRP, CMPX, #### [address] [address] Escrow Assistant: Sony Aguilar MD Platelets (Bld) [#/Vol] 210 10*3/uL Normal 138-453 [facility] Comment on above: Performed By: #### C DP, LACTIC, CRP, CMPX, #### [address] [address] Escrow Assistant: Sony Aguilar MD RBC (Bld) [#/Vol] 3.74 10*6/uL Low 4.21-5.77 [facility] Comment on above: Performed By: #### C DP, LACTIC, CRP, CMPX, #### [address] [address] Escrow Assistant: Sony Aguilar MD WBC (Bld) [#/Vol] 9.6 10*3/uL Normal 3.5-11.3 [facility] Comment on above: Performed By: #### C DP, LACTIC, CRP, CMPX, #### [address] [address] Escrow Assistant: Sony Aguilar MD Auto Diff Performed NOT REPORTED Normal [facility] Comment on above: Performed By: #### C DP, LACTIC, CRP, CMPX, #### [address] [address] Escrow Assistant: Sony Aguilar MD Platelets (Bld) [#/Vol] NOT REPORTED Normal [facility] Comment on above: Performed By: #### C DP, LACTIC, CRP, CMPX, #### [address] [address] Escrow Assistant: Sony Aguilar MD RBC morphology finding Nom (Bld) NOT REPORTED Normal [facility] Comment on above: Performed By: #### C DP, LACTIC, CRP, CMPX, #### [address] [address] Escrow Assistant: Sony Aguilar MD WBC Morphology NOT REPORTED Normal [facility] Comment on above: Performed By: #### C DP, LACTIC, CRP, CMPX, #### [address] [phone] Escrow Assistant: Sony Aguilar MD Cult,Urineon 09-08-2019 Cult,Urine Specimen Description .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,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 Culture NO SIGNIFICANT GROWTH Report Status FINAL 09/08/2019 Normal [facility] Comment on above: Performed By: #### C DP, LACTIC, CRP, CMPX, BH #### [address] [phone] Escrow Assistant: Sony Aguilar MD Hemoglobin A1Con 09-08-2019 HbA1c (Bld) [Mass fraction] 10.0 % High 4.0-6.0 [facility] Comment on above: Performed By: #### C DP, GLYHGB #### [facility] [employer] [address] [place] [address] [phone] Escrow Assistant: Sony Aguilar MD HbA1c (Bld) [Mass fraction] 240 mg/dL [facility] Comment on above: Result Comment: The ADA and AACC recommend providing the estimated average glucose result to permit better patient understanding of their HBA1c result. Performed By: #### C DP, GLYHGB #### [address] [address] Escrow Assistant: Sony Aguilar MD Glucose [Mass/Vol] 240 mg/dL [place] Comment on above: The ADA and AACC rec ommend providing the estimated average glucose result to permit better patient understanding of their HBA1c result. HbA1c (Bld) [Mass fraction] 10.0 % High 4 - 6 % [place] Interpretation and review of laboratory results Abnormal [place] POC Glucose Fingerstickon Glucose [Mass/Vol] 194 mg/dL High 75 - 110 mg/dL [place] Interpretation and review of laboratory results Abnormal [place] Glucose [Mass/Vol] 238 mg/dL High 75 - 110 mg/dL [place] Interpretation and review of laboratory results Abnormal [place] Glucose [Mass/Vol] 211 mg/dL High 75 - 110 mg/dL [place] Interpretation and review of laboratory results Abnormal [place] Glucose [Mass/Vol] 197 mg/dL High 75 - 110 mg/dL [place] Interpretation and review of laboratory results Abnormal [place] Glucose [Mass/Vol] 179 mg/dL High 75 - 110 mg/dL [place] Interpretation and review of laboratory results Abnormal [place] Glucose [Mass/Vol] 131 mg/dL High 75 - 110 mg/dL [place] Interpretation and review of laboratory results Abnormal [place] Glucose [Mass/Vol] 126 mg/dL High 75 - 110 mg/dL [place] Interpretation and review of laboratory results Abnormal [place] Glucose [Mass/Vol] 125 mg/dL High 75 - 110 mg/dL [place] Interpretation and review of laboratory results Abnormal [place] Glucose [Mass/Vol] 114 mg/dL High 75 - 110 mg/dL [place] Interpretation and review of laboratory results Abnormal [place] Glucose [Mass/Vol] 110 mg/dL 75 - 110 mg/dL [place] Glucose [Mass/Vol] 107 mg/dL 75 - 110 mg/dL [place] Glucose [Mass/Vol] 110 mg/dL 75 - 110 mg/dL [place] Glucose [Mass/Vol] 126 mg/dL High 75 - 110 mg/dL [place] Interpretation and review of laboratory results Abnormal [place] Urine Cultureon 09-08-2019 Culture NO SIGNIFICANT GROWTH [place] Special Requests NOT REPORTED [place] Specimen Description .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 Additional eGFR calculator available at: http://www.globalrph.SMIC/multiple_crcl_2012.htm Performed By: #### B MPX #### [address] [address] Escrow Assistant: Sony Aguilar MD Anion gap [Moles/Vol] 12 mmol/L Normal 9-17 [facility] Comment on above: Performed By: #### B MPX #### [address] [address] Escrow Assistant: Sony Aguilar MD Calcium [Mass/Vol] 7.5 mg/dL Low 8.6-10.4 [facility] Comment on above: Performed By: #### B MPX #### [address] [address] Escrow Assistant: Sony Aguilar MD Chloride [Moles/Vol] 99 mmol/L Normal 98-107 [facility] Comment on above: Performed By: #### B MPX #### [address] [address] Escrow Assistant: Sony Aguilar MD CO2 [Moles/Vol] 21 mmol/L Normal 20-31 [facility] Comment on above: Performed By: #### B MPX #### [address] [address] Escrow Assistant: Sony Aguilar MD Creatinine [Mass/Vol] 1.12 mg/dL Normal 0.70-1.20 [facility] Comment on above: Performed By: #### B MPX #### [address] [address] Escrow Assistant: Sony Aguilar MD GFR, Amer >60 Normal >60 [facility] Comment on above: Performed By: #### B MPX #### [address] [address] Escrow Assistant: Sony Aguilar MD GFR,non Amer >60 Normal >60 [facility] Comment on above: Performed By: #### B MPX #### [address] [address] Escrow Assistant: Sony Aguilar MD Glucose [Mass/Vol] 225 mg/dL High 70-99 [facility] Comment on above: Performed By: #### B MPX #### [address] [address] Escrow Assistant: Sony Aguilar MD Potassium [Moles/Vol] 4.4 mmol/L Normal 3.7-5.3 [facility] Comment on above: Performed By: #### B MPX #### [address] [address] Escrow Assistant: Sony Aguilar MD Sodium [Moles/Vol] 132 mmol/L Low 135-144 [facility] Comment on above: Performed By: #### B MPX #### [address] [address] Escrow Assistant: Sony Aguilar MD Urea nitrogen [Mass/Vol] 33 mg/dL High 8-23 [facility] Comment on above: Performed By: #### B MPX #### [address] [address] Escrow Assistant: Sony Aguilar MD BUN/CRE Ratio NOT REPORTED Normal 9-20 [facility] Comment on above: Performed By: #### B MPX #### [address] [address] Escrow Assistant: Sony Aguilar MD Staging: NOT REPORTED Normal [facility] Comment on above: Performed By: #### B MPX #### [address] [address] Escrow Assistant: Sony Aguilar MD Basic Metabolic Panel w/ Ref eduard to MGon 09-07-2019 Anion gap [Moles/Vol] 12 mmol/L 9 - 17 mmol/L [place] Bun/Cre Ratio NOT REPORTED [place] Calcium [Mass/Vol] 7.5 mg/dL Low 8.6 - 10. 4 mg/dL [place] Chloride [Moles/Vol] 99 mmol/L 98 - 10 7 mmol/L [place] CO2 [Moles/Vol] 21 mmol/L 20 - 31 mmol/L [place] Creatinine [Mass/Vol] 1.12 mg/dL 0.7 - 1.2 mg/dL [place] GFR >60 >60 mL/min [place] GFR Non- >60 >60 mL/min [place] GFR/1.73 sq M predicted among non-blacks MDRD (S/P/Bld) [Vol rate/Area] NOT REPORTED [place] GFR/1.73 sq M predicted among non-blacks MDRD (S/P/Bld) [Vol rate/Area] [place] Comment on above: Average GFR for 60-6 9 years old: 85 mL/min/1.73sq m Chronic Kidney Disease: <60 mL/min/1.73sq m Kidney failure: <15 mL/min/1.73sq m eGFR calculated using average adult body mass. Additional eGFR calculator available at: http://www.Mitro.SMIC/multiple_crcl_2012.htm Glucose [Mass/Vol] 225 mg/dL High 70 - 99 mg/dL [place] Interpretation and review of laboratory results Abnormal [place] Potassium [Moles/Vol] 4.4 mmol/L 3.7 - 5.3 mmol/L [place] Sodium [Moles/Vol] 132 mmol/L Low 135 - 144 mmol/L [place] Urea nitrogen [Mass/Vol] 33 mg/dL High 8 - 23 mg/dL [place] Beta Hydroxybutyrateon 09-07 Beta Hydroxybutyrate 0.67 mmol/L High 0.02-0.27 [facility] Comment on above: Performed By: #### C DP, LACTIC, CRP, CMPX, #### [facility] [employer] [address] [place], [place] [phone] Escrow Assistant: Sony Aguilar MD C-Reactive Proteinon 019 CRP [Mass/Vol] 237.9 mg/L High 0.0-5.0 [facility] Comment on above: Performed By: #### C DP, LACTIC, CRP, CMPX, #### [facility] [employer] [address] [place], [place] [phone] Escrow Assistant: Sony Aguilar MD CBC auto differentialon Basophils (Bld) [#/Vol] 10*3/uL [place] Basophils/100 WBC (Bld) 0 % 0 - 2 % [place] Differential Type NOT REPORTED [place] Eosinophils (Bld) [#/Vol] 0.05 10*3/uL [place] Eosinophils/100 WBC (Bld) 0 % Low 1 - 4 % [place] Erythrocyte distribution width (RBC) [Ratio] 12.0 % 11.8 - 14.4 % [place] Hematocrit (Bld) [Volume fraction] 34.4 % Low 40.7 - 50.3 % [place] Hemoglobin (Bld) [Mass/Vol] 11.6 g/dL Low 13 - 17 g/dL [place] Immature granulocytes (Bld) [#/Vol] 0 % 0 [place] Immature granulocytes (Bld) [#/Vol] 0.05 10*3/uL [place] Interpretation and review of laboratory results Abnormal [place] Lymphocytes (Bld) [#/Vol] 1.73 10*3/uL [place] Lymphocytes/100 WBC (Bld) 12 % Low 24 - 43 % [place] MCH (RBC) [Entitic mass] 29.3 pg 25.2 - 33.5 pg [place] MCHC (RBC) [Mass/Vol] 33.7 g/dL 28.4 - 34.8 g/dL [place] MCV (RBC) [Entitic vol] 86.9 fL 82.6 - 102.9 fL [place] Monocytes (Bld) [#/Vol] 1.34 10*3/uL [place] Monocytes/100 WBC (Bld) 9 % 3 - 12 % [place] Platelet mean volume (Bld) [Entitic vol] 12.8 fL 8.1 - 13.5 fL [place] Platelets (Bld) [#/Vol] NOT REPORTED [place] Platelets (Bld) [#/Vol] 131 10*3/uL Low [place] RBC (Bld) [#/Vol] 3.96 10*6/uL Low 4.21 - 5.7 7 m/uL [place] RBC morphology finding Nom (Bld) NOT REPORTED [place] Segmented neutrophils/100 WBC (Bld) 79 % High 36 - 65 % [place] Segs Absolute 11.42 [place] WBC (Bld) [#/Vol] 0.0 10*3/uL 0.0 per 10 0 WBC [place] WBC (Bld) [#/Vol] 14.6 10*3/uL [place] WBC Morphology NOT REPORTED [place] CBC with Diffon 09-07-2019 Abs. Basophil <0.03 Normal 0.00-0.20 [facility] Comment on above: Performed By: #### C DP, GLYHGB #### [employer] [address] [place] [address] Escrow Assistant: Sony Aguilar MD Abs.Imm.Granulocyte 0.05 k/uL Normal 0.00-0.30 [facility] Comment on above: Performed By: #### C DP, GLYHGB #### [employer] [address] [place] [phone] Escrow Assistant: Sony Aguilar MD Abs.Neutrophil (Seg) 11.42 k/uL High 1.50-8.10 [facility] Comment on above: Performed By: #### C DP, GLYHGB #### [address] [address] Escrow Assistant: Sony Aguilar MD Basophils/100 WBC (Bld) 0 % Normal 0-2 [facility] Comment on above: Performed By: #### C DP, GLYHGB #### [address] [address] Escrow Assistant: Sony Aguilar MD Eosinophils (Bld) [#/Vol] 0.05 10*3/uL Normal 0.00-0.44 [facility] Comment on above: Performed By: #### C DP, GLYHGB #### [address] [address] Escrow Assistant: Sony Aguilar MD Eosinophils/100 WBC (Bld) 0 % Low 1-4 [facility] Comment on above: Performed By: #### C DP, GLYHGB #### [address] [address] Escrow Assistant: Sony Aguilar MD Erythrocyte distribution width (RBC) [Ratio] 12.0 % Normal 11.8-14.4 [facility] Comment on above: Performed By: #### C DP, GLYHGB #### [facility] [employer] [address] [place] [address] Escrow Assistant: Sony Aguilar MD Hematocrit (Bld) [Volume fraction] 34.4 % Low 40.7-50.3 [facility] Comment on above: Performed By: #### C DP, GLYHGB #### [facility] [employer] [address] [place] [address] Escrow Assistant: Sony Aguilar MD Hemoglobin (Bld) [Mass/Vol] 11.6 g/dL Low 13.0-17.0 [facility] Comment on above: Performed By: #### C DP, GLYHGB #### [address] [address] Escrow Assistant: Sony Aguilar MD Immature granulocytes (Bld) [#/Vol] 0 % Normal 0 [facility] Comment on above: Performed By: #### C DP, GLYHGB #### [address] [address] Escrow Assistant: Sony Aguilar MD Lymphocytes (Bld) [#/Vol] 1.73 10*3/uL Normal 1.10-3.70 [facility] Comment on above: Performed By: #### C DP, GLYHGB #### [address] [address] Escrow Assistant: Sony Aguilar MD Lymphocytes/100 WBC (Bld) 12 % Low 24-43 [facility] Comment on above: Performed By: #### C DP, GLYHGB #### [address] [address] Escrow Assistant: Sony Aguilar MD MCH (RBC) [Entitic mass] 29.3 pg Normal 25.2-33.5 [facility] Comment on above: Performed By: #### C DP, GLYHGB #### [address] [address] Escrow Assistant: Sony Aguilar MD MCHC (RBC) [Mass/Vol] 33.7 g/dL Normal 28.4-34.8 [facility] Comment on above: Performed By: #### C DP, GLYHGB #### [facility] [employer] [address] [place] [address] Escrow Assistant: Sony Aguilar MD MCV (RBC) [Entitic vol] 86.9 fL Normal 82.6-102.9 [facility] Comment on above: Performed By: #### C DP, GLYHGB #### [address] [address] Escrow Assistant: Sony Aguilar MD Monocytes (Bld) [#/Vol] 1.34 10*3/uL High 0.10-1.20 [facility] Comment on above: Performed By: #### C DP, GLYHGB #### [address] [address] Escrow Assistant: Sony Aguilar MD Monocytes/100 WBC (Bld) 9 % Normal 3-12 [facility] Comment on above: Performed By: #### C DP, GLYHGB #### [address] [address] Escrow Assistant: Sony Aguilar MD Neutrophil (Seg) 79 % High 36-65 [facility] Comment on above: Performed By: #### C DP, GLYHGB #### [address] [address] Escrow Assistant: Sony Aguilar MD NRBC Automated 0.0 per 100 WBC Normal 0.0 [facility] Comment on above: Performed By: #### C DP, GLYHGB #### [address] [address] Escrow Assistant: Sony Aguilar MD Platelet mean volume (Bld) [Entitic vol] 12.8 fL Normal 8.1-13.5 [facility] Comment on above: Performed By: #### C DP, GLYHGB #### [address] [address] Escrow Assistant: Sony Aguilar MD Platelets (Bld) [#/Vol] 131 10*3/uL Low 138-453 [facility] Comment on above: Performed By: #### C DP, GLYHGB #### [facility] [address] [place] [address] Escrow Assistant: Sony Aguilar MD RBC (Bld) [#/Vol] 3.96 10*6/uL Low 4.21-5.77 [facility] Comment on above: Performed By: #### C DP, GLYHGB #### [facility] [address] [place] [address] Escrow Assistant: Sony Aguilar MD WBC (Bld) [#/Vol] 14.6 10*3/uL High 3.5-11.3 [facility] Comment on above: Performed By: #### C DP, GLYHGB #### [facility] [address] [place] [address] Escrow Assistant: Sony Aguilar MD Auto Diff Performed NOT REPORTED Normal [facility] Comment on above: Performed By: #### C DP, GLYHGB #### [facility] [employer] [address] [place] [address] Escrow Assistant: Sony Aguilar MD Platelets (Bld) [#/Vol] NOT REPORTED Normal [facility] Comment on above: Performed By: #### C DP, GLYHGB #### [facility] [employer] [address] [place] [address] Escrow Assistant: Sony Aguilar MD RBC morphology finding Nom (Bld) NOT REPORTED Normal [facility] Comment on above: Performed By: #### C DP, GLYHGB #### [facility] [address] [place] [address] Escrow Assistant: Sony Aguilar MD WBC Morphology NOT REPORTED Normal [facility] Comment on above: Performed By: #### C DP, GLYHGB #### [facility] [address] [place] [address] Escrow Assistant: Sony Aguilar MD Abs. Basophil 0.04 k/uL Normal 0.00-0.20 [facility] Comment on above: Performed By: #### C DP, LACTIC, CRP, CMPX, #### [address] [address] Escrow Assistant: Sony Aguilar MD Abs.Imm.Granulocyte 0.06 k/uL Normal 0.00-0.30 [facility] Comment on above: Performed By: #### C DP, LACTIC, CRP, CMPX, #### [address] [address] Escrow Assistant: Sony Aguilar MD Abs.Neutrophil (Seg) 11.62 k/uL High 1.50-8.10 [facility] Comment on above: Performed By: #### C DP, LACTIC, CRP, CMPX, #### [address] [address] Escrow Assistant: Sony Aguilar MD Basophils/100 WBC (Bld) 0 % Normal 0-2 [facility] Comment on above: Performed By: #### C DP, LACTIC, CRP, CMPX, #### [address] [address] Escrow Assistant: Sony Aguilar MD Eosinophils (Bld) [#/Vol] 0.03 10*3/uL Normal 0.00-0.44 [facility] Comment on above: Performed By: #### C DP, LACTIC, CRP, CMPX, #### [address] [address] Escrow Assistant: Sony Aguilar MD Eosinophils/100 WBC (Bld) 0 % Low 1-4 [facility] Comment on above: Performed By: #### C DP, LACTIC, CRP, CMPX, #### [address] [address] Escrow Assistant: Sony Aguilar MD Erythrocyte distribution width (RBC) [Ratio] 11.9 % Normal 11.8-14.4 [facility] Comment on above: Performed By: #### C DP, LACTIC, CRP, CMPX, #### [place] [address] Escrow Assistant: Sony Aguilar MD Hematocrit (Bld) [Volume fraction] 36.0 % Low 40.7-50.3 [facility] Comment on above: Performed By: #### C DP, LACTIC, CRP, CMPX, #### [place] [address] Escrow Assistant: Sony Aguilar MD Hemoglobin (Bld) [Mass/Vol] 11.8 g/dL Low 13.0-17.0 [facility] Comment on above: Performed By: #### C DP, LACTIC, CRP, CMPX, #### [place] [address] Escrow Assistant: Sony Aguilar MD Immature granulocytes (Bld) [#/Vol] 0 % Normal 0 [facility] Comment on above: Performed By: #### C DP, LACTIC, CRP, CMPX, #### [place] [address] Escrow Assistant: Sony Aguilar MD Lymphocytes (Bld) [#/Vol] 1.19 10*3/uL Normal 1.10-3.70 [facility] Comment on above: Performed By: #### C DP, LACTIC, CRP, CMPX, #### [place] [address] Escrow Assistant: Sony Aguilar MD Lymphocytes/100 WBC (Bld) 8 % Low 24-43 [facility] Comment on above: Performed By: #### C DP, LACTIC, CRP, CMPX, #### [place] [address] Escrow Assistant: Sony Aguilar MD MCH (RBC) [Entitic mass] 29.8 pg Normal 25.2-33.5 [facility] Comment on above: Performed By: #### C DP, LACTIC, CRP, CMPX, #### [address] [address] Escrow Assistant: Sony Aguilar MD MCHC (RBC) [Mass/Vol] 32.8 g/dL Normal 28.4-34.8 [facility] Comment on above: Performed By: #### C DP, LACTIC, CRP, CMPX, #### [address] [address] Escrow Assistant: Sony Aguilar MD MCV (RBC) [Entitic vol] 90.9 fL Normal 82.6-102.9 [facility] Comment on above: Performed By: #### C DP, LACTIC, CRP, CMPX, #### [place] [address] Escrow Assistant: Sony Aguilar MD Monocytes (Bld) [#/Vol] 1.39 10*3/uL High 0.10-1.20 [facility] Comment on above: Performed By: #### C DP, LACTIC, CRP, CMPX, #### [place] [address] Escrow Assistant: Sony Aguilar MD Monocytes/100 WBC (Bld) 10 % Normal 3-12 [facility] Comment on above: Performed By: #### C DP, LACTIC, CRP, CMPX, #### [address] [address] Escrow Assistant: Sony Aguilar MD Neutrophil (Seg) 82 % High 36-65 [facility] Comment on above: Performed By: #### C DP, LACTIC, CRP, CMPX, #### [address] [address] Escrow Assistant: Sony Aguilar MD NRBC Automated 0.0 per 100 WBC Normal 0.0 [facility] Comment on above: Performed By: #### C DP, LACTIC, CRP, CMPX, #### [address] [address] Escrow Assistant: Sony Aguilar MD Platelet mean volume (Bld) [Entitic vol] 12.0 fL Normal 8.1-13.5 [facility] Comment on above: Performed By: #### C DP, LACTIC, CRP, CMPX, #### [address] [address] Escrow Assistant: Sony Aguilar MD Platelets (Bld) [#/Vol] 160 10*3/uL Normal 138-453 [facility] Comment on above: Performed By: #### C DP, LACTIC, CRP, CMPX, #### [address] [address] Escrow Assistant: Sony Aguilar MD RBC (Bld) [#/Vol] 3.96 10*6/uL Low 4.21-5.77 [facility] Comment on above: Performed By: #### C DP, LACTIC, CRP, CMPX, #### [address] [address] Escrow Assistant: Sony Aguilar MD WBC (Bld) [#/Vol] 14.3 10*3/uL High 3.5-11.3 [facility] Comment on above: Performed By: #### C DP, LACTIC, CRP, CMPX, #### [address] [address] Escrow Assistant: Sony Aguilar MD Auto Diff Performed NOT REPORTED Normal [facility] Comment on above: Performed By: #### C DP, LACTIC, CRP, CMPX, #### [facility] [address] [place] [address] Escrow Assistant: Sony Aguilar MD Platelets (Bld) [#/Vol] NOT REPORTED Normal [facility] Comment on above: Performed By: #### C DP, LACTIC, CRP, CMPX, #### [facility] [address] [place] [address] Escrow Assistant: Sony Aguilar MD RBC morphology finding Nom (Bld) NOT REPORTED Normal [facility] Comment on above: Performed By: #### C DP, LACTIC, CRP, CMPX, #### [facility] [address] [place] [address] Escrow Assistant: Sony Aguilar MD WBC Morphology NOT REPORTED Normal [facility] Comment on above: Performed By: #### C DP, LACTIC, CRP, CMPX, #### [facility] [address] [place] [address] Escrow Assistant: Sony Aguilar MD Comp Metabolic Pr/rfx MGon 1 11-08-2018 AST [Catalytic activity/Vol] 13 U/L Normal <40 [facility] Comment on above: Performed By: #### C DP, LACTIC, CRP, CMPX, #### [address] [address] Escrow Assistant: Sony Augilar MD (cont.) Normal [facility] Comment on above: Result Comment: Aver age GFR for 60-69 years old: 85 mL/min/1.73sq m Chronic Kidney Disease: <60 mL/min/1.73sq m Kidney failure: <15 mL/min/1.73sq m eGFR calculated using average adult body mass. Additional eGFR calculator available at: http://www.Mitro.SMIC/multiple_crcl_2012.htm Performed By: #### C DP, LACTIC, CRP, CMPX, #### [address] [address] Escrow Assistant: Sony Aguilar MD Albumin [Mass/Vol] 2.6 g/dL Low 3.5-5.2 [facility] Comment on above: Performed By: #### C DP, LACTIC, CRP, CMPX, #### [address] [address] Escrow Assistant: Sony Aguilar MD Albumin/Globulin [Mass ratio] 0.9 {ratio} Low 1.0-2.5 [facility] Comment on above: Performed By: #### C DP, LACTIC, CRP, CMPX, #### [address] [address] Escrow Assistant: Sony Aguilar MD Alkaline Phos 72 U/L Normal 40-129 [facility] Comment on above: Performed By: #### C DP, LACTIC, CRP, CMPX, #### [address] [address] Escrow Assistant: Sony Aguilar MD ALT [Catalytic activity/Vol] 14 U/L Normal 5-41 [facility] Comment on above: Performed By: #### C DP, LACTIC, CRP, CMPX, #### [address] [address] Escrow Assistant: Sony Aguilar MD Anion gap [Moles/Vol] 11 mmol/L Normal 9-17 [facility] Comment on above: Performed By: #### C DP, LACTIC, CRP, CMPX, #### [address] [address] Escrow Assistant: Sony Aguilar MD Bilirubin Ql (U) 0.64 mg/dL Normal 0.3-1.2 [facility] Comment on above: Performed By: #### C DP, LACTIC, CRP, CMPX, #### [address] [place] [address] Escrow Assistant: Sony Aguilar MD Calcium [Mass/Vol] 7.6 mg/dL Low 8.6-10.4 [facility] Comment on above: Performed By: #### C DP, LACTIC, CRP, CMPX, #### [facility] [address] [place] [address] Escrow Assistant: Sony Aguilar MD Chloride [Moles/Vol] 99 mmol/L Normal 98-107 [facility] Comment on above: Performed By: #### C DP, LACTIC, CRP, CMPX, BH #### [address] [address] Escrow Assistant: Sony Aguilar MD CO2 [Moles/Vol] 22 mmol/L Normal 20-31 [facility] Comment on above: Performed By: #### C DP, LACTIC, CRP, CMPX, #### [address] [address] Escrow Assistant: Sony Aguilar MD Creatinine [Mass/Vol] 1.22 mg/dL High 0.70-1.20 [facility] Comment on above: Performed By: #### C DP, LACTIC, CRP, CMPX, #### [facility] [address] [place] [id number] Escrow Assistant: Sony Aguilar MD GFR, Amer >60 Normal >60 [facility] Comment on above: Performed By: #### C DP, LACTIC, CRP, CMPX, BH #### [facility] [employer] [address] [place] [address] Escrow Assistant: Sony Aguilar MD GFR,non Amer 60 mL/min Low >60 [facility] Comment on above: Performed By: #### C DP, LACTIC, CRP, CMPX, #### [facility] [address] [place] [id number] Escrow Assistant: Sony Aguilar MD Glucose [Mass/Vol] 293 mg/dL High 70-99 [facility] Comment on above: Performed By: #### C DP, LACTIC, CRP, CMPX, #### [facility] [address] [place] [id number] Escrow Assistant: Sony Aguilar MD Potassium [Moles/Vol] 4.3 mmol/L Normal 3.7-5.3 [facility] Comment on above: Performed By: #### C DP, LACTIC, CRP, CMPX, #### [address] [address] Escrow Assistant: Sony Aguilar MD Protein [Mass/Vol] 5.6 g/dL Low 6.4-8.3 [facility] Comment on above: Performed By: #### C DP, LACTIC, CRP, CMPX, #### [facility] [employer] [address] [place] [address] Escrow Assistant: Sony Aguilar MD Sodium [Moles/Vol] 132 mmol/L Low 135-144 [facility] Comment on above: Performed By: #### C DP, LACTIC, CRP, CMPX, #### [facility] [employer] [address] [place] [phone] Escrow Assistant: Sony Aguilar MD Urea nitrogen [Mass/Vol] 34 mg/dL High 8-23 [facility] Comment on above: Performed By: #### C DP, LACTIC, CRP, CMPX, #### [facility] [address] [place] [phone] Escrow Assistant: Sony Aguilar MD BUN/CRE Ratio NOT REPORTED Normal - [facility] Comment on above: Performed By: #### C DP, LACTIC, CRP, CMPX, #### [facility] [employer] [address] [place] [id number] Escrow Assistant: Sony Aguilar MD Staging: NOT REPORTED Normal [facility] Comment on above: Performed By: #### C DP, LACTIC, CRP, CMPX, #### [facility] [address] [place] [address] Escrow Assistant: Sony Aguilar MD Lactic Acidon 09-07-2019 Lactate [Moles/Vol] 1.4 mmol/L Normal 0.7-2.1 [facility] Comment on above: Performed By: #### C DP, LACTIC, CRP, CMPX, #### [facility] [address] [place] [address] Escrow Assistant: Sony Aguilar MD Lactate [Moles/Vol] NOT REPORTED Normal [facility] Comment on above: Performed By: #### C DP, LACTIC, CRP, CMPX, #### [address] [address] Escrow Assistant: Sony Aguilar MD MRSA DNA Probe, Nasalon MRSA, DNA, Nasal NEGATIVE: MRSA DNA n ot detected by nucleic acid amplification. NEGATIVE: MRSA DNA not detected by nucleic acid amplificati [place] Comment on above: Results should be used as an adjunct to nosocomial control efforts to identify patients needing enhanced precautions. The test is not intended to identify patients with staphylococcal infections. Results should not be used to guide or monitor treatment for MRSA infections. Specimen Description .NASAL SWAB [place] MRSA, DNA, Nasalon 9 MRSA, DNA, Nasal NEGATIVE: MRSA DNA n ot detected by nucleic acid amplification. Normal NMRSAA [facility] Comment on above: Result Comment: Results should be used as an adjunct to nosocomial control efforts to identify patients needing enhanced precautions. The test is not intended to identify patients with staphylococcal infections. Results should not be used to guide or monitor treatment for MRSA infections. Performed By: #### C DP, LACTIC, CRP, CMPX, #### [address] [address] Escrow Assistant: Sony Aguilar MD POC Glucose Fingerstickon Glucose [Mass/Vol] 153 mg/dL High 75 - 110 mg/dL [place] Interpretation and review of laboratory results Abnormal [place] Glucose [Mass/Vol] 163 mg/dL High 75 - 110 mg/dL [place] Interpretation and review of laboratory results Abnormal [place] Glucose [Mass/Vol] 174 mg/dL High 75 - 110 mg/dL [place] Interpretation and review of laboratory results Abnormal [place] Glucose [Mass/Vol] 189 mg/dL High 75 - 110 mg/dL [place] Interpretation and review of laboratory results Abnormal [place] Glucose [Mass/Vol] 116 mg/dL High 75 - 110 mg/dL [place] Interpretation and review of laboratory results Abnormal [place] Glucose [Mass/Vol] 139 mg/dL High 75 - 110 mg/dL [place] Interpretation and review of laboratory results Abnormal [place] Glucose [Mass/Vol] 135 mg/dL High 75 - 110 mg/dL [place] Interpretation and review of laboratory results Abnormal [place] Glucose [Mass/Vol] 182 mg/dL High 75 - 110 mg/dL [place] Interpretation and review of laboratory results Abnormal [place] Glucose [Mass/Vol] 157 mg/dL High 75 - 110 mg/dL [place] Interpretation and review of laboratory results Abnormal [place] Glucose [Mass/Vol] 150 mg/dL High 75 - 110 mg/dL [place] Interpretation and review of laboratory results Abnormal [place] Glucose [Mass/Vol] 139 mg/dL High 75 - 110 mg/dL [place] Interpretation and review of laboratory results Abnormal [place] Glucose [Mass/Vol] 167 mg/dL High 75 - 110 mg/dL [place] Interpretation and review of laboratory results Abnormal [place] Glucose [Mass/Vol] 190 mg/dL High 75 - 110 mg/dL [place] Interpretation and review of laboratory results Abnormal [place] Glucose [Mass/Vol] 181 mg/dL High 75 - 110 mg/dL [place] Interpretation and review of laboratory results Abnormal [place] Glucose [Mass/Vol] 236 mg/dL High 75 - 110 mg/dL [place] Interpretation and review of laboratory results Abnormal [place] Type + Screenon 09-07-2019 Type + Screen Sample Expiration 09/09/2019,2359 Arm Band Number [place] [id number] ABO/Rh(D) O NEGATIVE Antibody Screen NEGATIVE Normal [facility] Comment on above: Performed By: #### T YS #### [facility] [address] [place] [address] Escrow Assistant: Sony Aguilar MD BLOOD BANK SPECIMENon 2018 Blood Bank Specimen NOT REPORTED [place] Beta-Hydroxybutyrateon 09-06 Beta-Hydroxybutyrate 0.67 mmol/L High 0.02 - 0.27 mmol/L [place] Interpretation and review of laboratory results Abnormal [place] Blood Bank Specimenon 2018 Blood Bank Specimen NOT REPORTED Normal [facility] C-Reactive Proteinon 019 CRP [Mass/Vol] 237.9 mg/L High 0 - 5 mg/L [place] Interpretation and review of laboratory results Abnormal [place] CBC auto differentialon Basophils (Bld) [#/Vol] 0.04 10*3/uL [place] Basophils/100 WBC (Bld) 0 % 0 - 2 % [place] Differential Type NOT REPORTED [place] Eosinophils (Bld) [#/Vol] 0.03 10*3/uL [place] Eosinophils/100 WBC (Bld) 0 % Low 1 - 4 % [place] Erythrocyte distribution width (RBC) [Ratio] 11.9 % 11.8 - 14.4 % [place] Hematocrit (Bld) [Volume fraction] 36.0 % Low 40.7 - 50.3 % [place] Hemoglobin (Bld) [Mass/Vol] 11.8 g/dL Low 13 - 17 g/dL [place] Immature granulocytes (Bld) [#/Vol] 0.06 10*3/uL [place] Immature granulocytes (Bld) [#/Vol] 0 % 0 [place] Interpretation and review of laboratory results Abnormal [place] Lymphocytes (Bld) [#/Vol] 1.19 10*3/uL [place] Lymphocytes/100 WBC (Bld) 8 % Low 24 - 43 % [place] MCH (RBC) [Entitic mass] 29.8 pg 25.2 - 33.5 pg [place] MCHC (RBC) [Mass/Vol] 32.8 g/dL 28.4 - 34.8 g/dL [place] MCV (RBC) [Entitic vol] 90.9 fL 82.6 - 102.9 fL [place] Monocytes (Bld) [#/Vol] 1.39 10*3/uL [place] Monocytes/100 WBC (Bld) 10 % 3 - 12 % [place] Platelet mean volume (Bld) [Entitic vol] 12.0 fL 8.1 - 13.5 fL [place] Platelets (Bld) [#/Vol] 160 10*3/uL [place] Platelets (Bld) [#/Vol] NOT REPORTED [place] RBC (Bld) [#/Vol] 3.96 10*6/uL Low 4.21 - 5.7 7 m/uL [place] RBC morphology finding Nom (Bld) NOT REPORTED [place] Segmented neutrophils/100 WBC (Bld) 82 % High 36 - 65 % [place] Segs Absolute 11.62 [place] WBC (Bld) [#/Vol] 0.0 10*3/uL 0.0 per 10 0 WBC [place] WBC (Bld) [#/Vol] 14.3 10*3/uL [place] WBC Morphology NOT REPORTED [place] Comprehensive Metabolic Pane l w/ Reflex to MGon 09-06-2019 Albumin [Mass/Vol] 2.6 g/dL Low 3.5 - 5.2 g/dL [place] Albumin/Globulin [Mass ratio] 0.9 {ratio} Low [place] ALP [Catalytic activity/Vol] 72 U/L 40 - 129 U/L [place] ALT [Catalytic activity/Vol] 14 U/L 5 - 41 U/L [place] Anion gap [Moles/Vol] 11 mmol/L 9 - 17 mmol/L [place] AST [Catalytic activity/Vol] 13 U/L <40 [place] Bilirubin Ql (U) 0.64 mg/dL 0.3 - 1.2 mg/dL [place] Bun/Cre Ratio NOT REPORTED [place] Calcium [Mass/Vol] 7.6 mg/dL Low 8.6 - 10. 4 mg/dL [place] Chloride [Moles/Vol] 99 mmol/L 98 - 10 7 mmol/L [place] CO2 [Moles/Vol] 22 mmol/L 20 - 31 mmol/L [place] Creatinine [Mass/Vol] 1.22 mg/dL High 0.7 - 1.2 mg/dL [place] GFR >60 >60 mL/min [place] GFR Non- 60 mL/min Low >60 [place] GFR/1.73 sq M predicted among non-blacks MDRD (S/P/Bld) [Vol rate/Area] NOT REPORTED [place] GFR/1.73 sq M predicted among non-blacks MDRD (S/P/Bld) [Vol rate/Area] [place] Comment on above: Average GFR for 60-6 9 years old: 85 mL/min/1.73sq m Chronic Kidney Disease: <60 mL/min/1.73sq m Kidney failure: <15 mL/min/1.73sq m eGFR calculated using average adult body mass. Additional eGFR calculator available at: http://www.Mitro.com/multiple_crcl_2012.htm Glucose [Mass/Vol] 293 mg/dL High 70 - 99 mg/dL [place] Interpretation and review of laboratory results Abnormal [place] Potassium [Moles/Vol] 4.3 mmol/L 3.7 - 5.3 mmol/L [place] Protein [Mass/Vol] 5.6 g/dL Low 6.4 - 8.3 g/dL [place] Sodium [Moles/Vol] 132 mmol/L Low 135 - 144 mmol/L [place] Urea nitrogen [Mass/Vol] 34 mg/dL High 8 - 23 mg/dL [place] Lactic acid, plasmaon 2018 Lactate [Moles/Vol] NOT REPORTED mmol/L [place] Lactic Acid, Whole Blood 1.4 mmol/L 0.7 - 2.1 mmol/L [place] MRSA, DNA, Nasalon 9 Specimen Description .NASAL SWAB Normal [facility] Comment on above: Performed By: #### C DP, LACTIC, CRP, CMPX, #### [id number] [place] [address] Escrow Assistant: Sony Augilar MD POC Glucose Fingerstickon Glucose [Mass/Vol] 286 mg/dL High 75 - 110 mg/dL [place] Interpretation and review of laboratory results Abnormal [place] Glucose [Mass/Vol] 281 mg/dL High 75 - 110 mg/dL [place] Interpretation and review of laboratory results Abnormal [place] Glucose [Mass/Vol] 294 mg/dL High 75 - 110 mg/dL [place] Interpretation and review of laboratory results Abnormal [place] Glucose [Mass/Vol] 288 mg/dL High 75 - 110 mg/dL [place] Interpretation and review of laboratory results Abnormal [place] TYPE AND SCREENon 09-06-2019 ABO/Rh Negative [place], [place] Arm Band Number BE [id number] Nat Astudillo [facility] [place], [place] Expiration Date 09/09/2019,2359 [facility] [place], [place] Vital Signs Date Time Vital Sign Value Performing Clinician John nicholas 10-21-2023 12:07-0500 Body height 188 cm Geovani Mack MD Work Phone: [facility] 10-21-2023 12:07-0500 Body mass index (BMI) [Ratio] 30.17 kg/m2 Geovani Mack MD Work Phone: [facility] 10-21-2023 12:07-0500 Body weight 106.59 kg Geovani Mack MD Work Phone: [facility] 10-21-2023 12:07-0500 Diastolic blood pressure 54 mm[Hg] Geovani Mcak MD Work Phone: [facility] 10-21-2023 12:07-0500 Heart rate 58 /min Geovani Mack MD Work Phone: [facility] 10-21-2023 12:07-0500 Systolic blood pressure 102 mm[Hg] Geovani Mack MD Work Phone: [facility] 09-16-2023 12:46-0500 Body mass index (BMI) [Ratio] 34.7 kg/m2 Geovani Mack MD Work Phone: [facility] 09-16-2023 12:46-0500 Body weight 106.59 kg Geovani Mack MD Work Phone: [facility] 09-16-2023 12:42-0500 Body height 175.3 cm Geovani Mack MD Work Phone: [facility] 09-16-2023 12:42-0500 Diastolic blood pressure 66 mm[Hg] Geovani Mack MD Work Phone: [facility] 09-16-2023 12:42-0500 Heart rate 112 /min Geovani Mack MD Work Phone: [facility] 09-16-2023 12:42-0500 Systolic blood pressure 104 mm[Hg] Geovani Mack MD Work Phone: [facility] 04-06-2023 09:44-0400 Body mass index (BMI) [Ratio] 30.81 kg/m2 Geovani Mack MD Work Phone: [facility] 04-06-2023 09:44-0400 Body weight 96 kg Geovani Mack MD Work Phone: [facility] 03-26-2023 10:22-0400 Diastolic blood pressure 68 mm[Hg] Jaja Lee [facility] 03-26-2023 10:22-0400 Heart rate 71 /min [facility] 03-26-2023 10:22-0400 Respiratory rate 14 /min [facility] 03-26-2023 10:22-0400 SaO2% (BldA) [Mass fraction] 96 % Jaja Zia [facility] 03-26-2023 10:22-0400 Systolic blood pressure 118 mm[Hg] Jaja Lee [facility] 03-24-2023 13:36-0400 Body height 176.53 cm Presdoa Work Phone: [facility] [address] DO Work Phone: 03-24-2023 13:36-0400 Body mass index (BMI) [Ratio] 30.65 kg/m2 [employer] Work Phone: [facility] [address] DO Work Phone: 03-24-2023 13:36-0400 Body surface area Derived from formula 2.12 m2 [employer] [place] Work Phone: [facility] [address] DO Work Phone: 03-24-2023 13:36-0400 Body weight 95.51 kg Freta.látheresa Lewis [place] Work Phone: [facility] [address] DO Work Phone: 03-24-2023 13:36-0400 Diastolic blood pressure 52 mm[Hg] Hermilo Lewis [place] Work Phone: [facility] [address] DO Work Phone: 03-24-2023 13:36-0400 Heart rate 72 /min Rugtheresa Lewis [place] Work Phone: [facility] [address] DO Work Phone: 03-24-2023 13:36-0400 Systolic blood pressure 90 mm[Hg] Claireen Debbie [place] Work Phone: [facility] [address] DO Work Phone: 02-14-2023 12:10-0400 Hourly Rounding Isaías FLEMING [facility] 02-14-2023 12:10-0400 Promise to Return Isaíasara FLEMING [facility] 02-14-2023 11:15-0400 Heart rate 67 /min Isaías FLEMING [facility] 02-14-2023 11:15-0400 SaO2% (BldA) [Mass fraction] 99 % Isaías LEELIN [facility] 02-14-2023 11:15-0400 Body temperature 97.52 [degF] Isaíasara WILDESLIN [facility] 02-14-2023 11:14-0400 Diastolic blood pressure 73 mm[Hg] Isaíasara WILDESLIN [facility] 02-14-2023 11:14-0400 Mean blood pressure 91 mm[Hg] Isaíasara WILDESLIN [facility] 02-14-2023 11:14-0400 Systolic blood pressure 128 mm[Hg] Isaías LONNIE [facility] 02-14-2023 11:10-0400 Hourly Rounding Isaías LONNIE [facility] 02-14-2023 11:10-0400 Promise to Return Isaías LONNIE [facility] 02-14-2023 10:23-0400 Hourly Rounding Isaías LONNIE [facility] 02-14-2023 10:23-0400 Promise to Return Isaías LNONIE [facility] 02-14-2023 07:34-0400 Heart rate 67 /min Isaías LONNIE [facility] 02-14-2023 07:34-0400 SaO2% (BldA) [Mass fraction] 100 % Isaías LONNIE [facility] 02-14-2023 07:34-0400 Body temperature 96.26 [degF] Isaías LONNIE [facility] 02-14-2023 07:33-0400 Diastolic blood pressure 80 mm[Hg] Isaías LONNIE [facility] 02-14-2023 07:33-0400 Mean blood pressure 104 mm[Hg] Isaías LONNIE [facility] 02-14-2023 07:33-0400 Systolic blood pressure 153 mm[Hg] Isaías LONNIE [facility] 02-14-2023 00:29-0400 Heart rate 60 /min Isaías LONNIE [facility] 02-14-2023 00:29-0400 SaO2% (BldA) [Mass fraction] 99 % Isaías WILDESLIN [facility] 02-14-2023 00:20-0400 Diastolic blood pressure 80 mm[Hg] Isaías LONNIE [facility] 02-14-2023 00:20-0400 Mean blood pressure 105 mm[Hg] Isaíasara WILDESLIN [facility] 02-14-2023 00:20-0400 Systolic blood pressure 156 mm[Hg] Isaíasara WILDESLIN [facility] 02-14-2023 00:18-0400 Body temperature 97.7 [degF] Isaíasara WILDESLIN [facility] 02-13-2023 19:25-0400 Body temperature 97.16 [degF] Isaíasara WILDESLIN [facility] 02-13-2023 15:44-0400 Body temperature 96.44 [degF] Isaíasara WILDESLIN [facility] 02-13-2023 11:00-0400 Body temperature 96.8 [degF] Isaíasara WILDESLIN [facility] 02-13-2023 10:30-0400 Blood Pressure Location Isaíasara WILDESLIN [facility] 02-13-2023 10:30-0400 Heart rate 50 /min Isaíasara WILDESLIN [facility] 02-13-2023 10:30-0400 Respiratory rate 16 /min Isaíasara WILDESLIN [facility] 02-13-2023 10:10-0400 Mean blood pressure 91 mm[Hg] Isaíasara WILDESLIN [facility] 02-13-2023 10:10-0400 Respiratory rate 20 /min Isaías LEELIN [facility] 02-13-2023 08:16-0400 Mean blood pressure 97 mm[Hg] Isaíasara WILDESLIN [facility] 02-13-2023 08:16-0400 Respiratory rate 18 /min Isaíasara WILDESLIN [facility] 02-13-2023 07:30-0400 Mean blood pressure 82 mm[Hg] Isaías WILDESLIN [facility] 02-13-2023 07:30-0400 Respiratory rate 22 /min Isaíasara WILDESLIN [facility] 02-13-2023 01:02-0400 SaO2% (BldA) [Mass fraction] 95.0 % Isaías LEELIN [facility] 02-13-2023 00:50-0400 gluc 124 mg/dL Isaíasara FLEMING [facility] 02-13-2023 00:50-0400 gluc Isaíasara FLEMING [facility] 02-13-2023 00:23-0400 Heart rate 52 /min Isaíasara WILDESLIN [facility] 02-13-2023 00:23-0400 Respiratory rate 12 /min Isaíasara WILDESLIN [facility] 02-11-2023 10:53-0400 Blood Pressure Location Bushramillie GONZALEZG [facility] 02-11-2023 10:53-0400 Diastolic blood pressure 65 mm[Hg] Bushra STANG [facility] 02-11-2023 10:53-0400 Heart rate 73 /min Bushramillie GONZALEZG [facility] 02-11-2023 10:53-0400 SaO2% (BldA) [Mass fraction] 97 % Bushra JIMENEZ [facility] 02-11-2023 10:53-0400 Systolic blood pressure 113 mm[Hg] Bushra JIMENEZ [facility] 01-26-2023 12:53-0400 gluc 156 mg/dL Isaías LONNIE [facility] 01-26-2023 12:00-0400 Diastolic blood pressure 60 mm[Hg] Isaías LONNIE [facility] 01-26-2023 12:00-0400 Heart rate 63 /min Isaías LONNIE [facility] 01-26-2023 12:00-0400 Hourly Rounding Isaías LONNIE [facility] 01-26-2023 12:00-0400 Mean blood pressure 82 mm[Hg] Isaías LONNIE [facility] 01-26-2023 12:00-0400 Promise to Return Isaías LONNIE [facility] 01-26-2023 12:00-0400 Respiratory rate 13 /min Isaías LONNIE [facility] 01-26-2023 12:00-0400 Systolic blood pressure 125 mm[Hg] Isaías LONNIE [facility] 01-26-2023 11:00-0400 Hourly Rounding Isaías LONNIE [facility] 01-26-2023 11:00-0400 Promise to Return Isaías LONNIE [facility] 01-26-2023 10:22-0400 gluc 140 mg/dL Isaías LONNIE [facility] 01-26-2023 10:21-0400 Diastolic blood pressure 52 mm[Hg] Isaías LONNIE [facility] 01-26-2023 10:21-0400 Systolic blood pressure 119 mm[Hg] Isaías LONNIE [facility] 01-26-2023 10:00-0400 Hourly Rounding Isaías LONNIE [facility] 01-26-2023 10:00-0400 Promise to Return Isaías LONNIE [facility] 01-26-2023 08:00-0400 Body temperature 97.7 [degF] Isaías LONNIE [facility] 01-26-2023 08:00-0400 Heart rate 62 /min Isaías LONNIE [facility] 01-26-2023 08:00-0400 Mean blood pressure 74 mm[Hg] Isaías LONNIE [facility] 01-26-2023 04:00-0400 Blood Pressure Location Isaías LONNIE [facility] 01-26-2023 04:00-0400 Body temperature 98.42 [degF] Isaías LONNIE [facility] 01-26-2023 04:00-0400 Heart rate 60 /min Isaías LONNIE [facility] 01-26-2023 04:00-0400 Mean blood pressure 89 mm[Hg] Isaías LONNIE [facility] 01-26-2023 04:00-0400 Respiratory rate 16 /min Isaías LONNIE [facility] 01-26-2023 04:00-0400 SaO2% (BldA) [Mass fraction] 97 % Isaías WILDESLIN [facility] 01-26-2023 00:00-0400 Blood Pressure Location Isaíasara WILDESLIN [facility] 01-26-2023 00:00-0400 Body temperature 98.24 [degF] Isaías WILDESLIN [facility] 01-26-2023 00:00-0400 SaO2% (BldA) [Mass fraction] 97 % Isaías WILDESLIN [facility] 01-25-2023 20:35-0400 Heart rate 68 /min Isaías WILDESLIN [facility] 01-24-2023 21:08-0400 Heart rate 76 /min Isaíasara WILDESLIN [facility] 01-24-2023 16:32-0400 gluc 208 mg/dL Isaíasara WILDESLIN [facility] 01-23-2023 16:35-0400 Respiratory rate 16 /min Isaíasara WILDESLIN [facility] 01-23-2023 11:16-0400 Mean blood pressure 87 mm[Hg] Isaíasara WILDESLIN [facility] 01-23-2023 08:37-0400 Mean blood pressure 91 mm[Hg] Isaías LONNIE [facility] 01-23-2023 04:06-0400 Mean blood pressure 91 mm[Hg] Isaías LONNIE [facility] 01-22-2023 04:20-0400 Heart rate 87 /min Isaíasara WILDESLIN [facility] 01-22-2023 04:20-0400 Respiratory rate 18 /min Isaías LONNIE [facility] 01-22-2023 00:39-0400 gluc Isaías LONINE [facility] 01-22-2023 00:30-0400 Respiratory rate 18 /min Isaías LONNIE [facility] 12-25-2022 14:42-0400 Hourly Rounding Isaías LONNIE [facility] 12-25-2022 14:42-0400 Promise to Return Isaías LONNIE [facility] 12-25-2022 14:00-0400 Respiratory rate 18 /min Isaías LONNIE [facility] 12-25-2022 13:00-0400 Hourly Rounding Isaías LONNIE [facility] 12-25-2022 13:00-0400 Promise to Return Isaías LONNIE [facility] 12-25-2022 12:32-0400 Hourly Rounding Isaías LONNIE [facility] 12-25-2022 12:32-0400 Promise to Return Isaías LONNIE [facility] 12-25-2022 12:23-0400 gluc 214 mg/dL Isaías LONNIE [facility] 12-25-2022 11:40-0400 Heart rate 53 /min Isaías LONNIE [facility] 12-25-2022 11:40-0400 SaO2% (BldA) [Mass fraction] 99 % Isaías LONNIE [facility] 12-25-2022 11:40-0400 Body temperature 97.88 [degF] Isaíasara WILDESLIN [facility] 12-25-2022 11:39-0400 Diastolic blood pressure 67 mm[Hg] Isaíasara WILDESLIN [facility] 12-25-2022 11:39-0400 Mean blood pressure 79 mm[Hg] Isaíasara WILDESLIN [facility] 12-25-2022 11:39-0400 Systolic blood pressure 102 mm[Hg] Isaíasara WILDESLIN [facility] 12-25-2022 09:02-0400 gluc 140 mg/dL Isaíasara WILDESLIN [facility] 12-25-2022 08:04-0400 Heart rate 58 /min Isaíasara WILDESLIN [facility] 12-25-2022 08:04-0400 SaO2% (BldA) [Mass fraction] 99 % Isaíasara WILDESLIN [facility] 12-25-2022 08:03-0400 Body temperature 97.34 [degF] Isaías WILDESLIN [facility] 12-25-2022 08:03-0400 Diastolic blood pressure 75 mm[Hg] Isaíasara WILDESLIN [facility] 12-25-2022 08:03-0400 Mean blood pressure 91 mm[Hg] Isaíasara WILDESLIN [facility] 12-25-2022 08:03-0400 Systolic blood pressure 124 mm[Hg] Isaíasara WILDESLIN [facility] 12-25-2022 02:42-0400 Heart rate 51 /min Isaíasara WILDESLIN [facility] 03-23-2023 02:42-0400 SaO2% (BldA) [Mass fraction] 97 % Isaíasara WILDESLIN [facility] 12-25-2022 02:42-0400 Body temperature 97.52 [degF] Isaíasara WILDESLIN [facility] 12-25-2022 02:41-0400 Diastolic blood pressure 76 mm[Hg] Isaías LONNIE [facility] 12-25-2022 02:41-0400 Mean blood pressure 92 mm[Hg] Isaíasara WILDESLIN [facility] 12-25-2022 02:41-0400 Systolic blood pressure 125 mm[Hg] Isaíasara WILDESLIN [facility] 12-24-2022 21:22-0400 gluc 202 mg/dL Isaíasara WILDESLIN [facility] 12-24-2022 18:00-0400 Respiratory rate 18 /min Isaíasara WILDESLIN [facility] 12-24-2022 07:54-0400 Respiratory rate 16 /min Isaíasara WILDESLIN [facility] 12-23-2022 11:00-0400 Blood Pressure Location Isaíasara WILDESLIN [facility] 12-23-2022 08:03-0400 Body temperature 97.7 [degF] Isaíasara WILDESLIN [facility] 12-22-2022 21:00-0400 Mean blood pressure 91 mm[Hg] Isaíasara WILDESLIN [facility] 12-21-2022 08:21-0400 Heart rate 49 /min Isaíasara WILDESLIN [facility] 12-21-2022 04:15-0400 Mean blood pressure 100 mm[Hg] Isaías LONNIE [facility] 12-21-2022 04:15-0400 Respiratory rate 19 /min Isaías LONNIE [facility] 12-21-2022 04:00-0400 Mean blood pressure 83 mm[Hg] Isaías LONNIE [facility] 12-21-2022 04:00-0400 Respiratory rate 13 /min Isaías LONNIE [facility] 12-21-2022 03:30-0400 Respiratory rate 12 /min Isaías LONNIE [facility] 12-20-2022 23:22-0400 Heart rate 55 /min Isaías LONNIE [facility] 12-20-2022 23:21-0400 gluc Isaías LONNIE [facility] 12-20-2022 23:07-0400 Heart rate 67 /min Isaías LONNIE [facility] 10-01-2022 11:25-0500 Body height 187.96 cm Ana Norris Other [facility] [employer] Other 10-01-2022 11:25-0500 Body mass index (BMI) [Ratio] 28.89 kg/m2 Ana Norris Other [facility] [employer] Other 10-01-2022 11:25-0500 Body temperature 97.3 [degF] Ana Norris Other [employer] Other 10-01-2022 11:25-0500 Body weight 102.06 kg Ana Norris Other [employer] Other 10-01-2022 11:25-0500 Diastolic blood pressure 64 mm[Hg] Ana Norris Other [employer] Other 10-01-2022 11:25-0500 Respiratory rate 18 /min Ana Norris Other [employer] Other 10-01-2022 11:25-0500 SaO2% (BldA) [Mass fraction] 98 % Ana Norris Other [employer] Other 10-01-2022 11:25-0500 Systolic blood pressure 108 mm[Hg] Ana Norris Other [employer] Other 09-10-2019 11:21-0500 Body Temperature 97.9 [degF] Jeri Lion [facility], [place] 09-10-2019 11:21-0500 BP Diastolic 73 mm[Hg] Jeri Lion [place], [place] 09-10-2019 11:21-0500 BP Systolic 142 mm[Hg] Jeri Lion [place], [place] 09-10-2019 11:21-0500 Pulse (Heart Rate) 65 /min Jeri Johns [place], [place] 09-10-2019 11:21-0500 Pulse Oximetry 94 % Jeri Lion [place], [place] 09-10-2019 11:21-0500 Respiratory Rate 14 /min Jeri Lion [place], [place] 09-10-2019 07:45-0500 BMI (Body Mass Index) 35.25 kg/m2 Jeri Lion [place], [place] 09-10-2019 07:45-0500 Body weight 124.54 kg Jeri Lion [place], [place] 09-10-2019 07:45-0500 Height 188 cm Jeri Lion [place], [place] Encounters Encounter Date Encounter Type Care Provider Facility Start: 11-13-2023 Clinisync Result Encounter Hermilo Thorne MD Work Phone: [facility] External [facility] Unsolicited Start: 11-13-2023 Clinisync Result Encounter Hermilo Thorne MD Work Phone: [facility] Unsolicited Start: 11-13-2023 End: 11-14-2023 ambulatory [facility] Start: 11-06-2023 End: 11-07-2023 ambulatory [facility] Start: 11-06-2023 End: 11-06-2023 Subsequent hospital visit by physician [facility] Comment on above: Status post placemen t of implantable loop recorder; Syncope and collapse Start: 10-30-2023 End: 10-31-2023 [facility] Start: 10-30-2023 End: 10-30-2023 Subsequent hospital visit by physician [facility] Comment on above: Status post placemen t of implantable loop recorder; Syncope and collapse Start: 10-21-2023 End: 10-22-2023 ambulatory [facility] Start: 10-21-2023 End: 10-21-2023 Office outpatient visit 40 minutes Geovani Mack MD Work Phone: [facility] Comment on above: Abnormal EKG (Primar y Dx); Former smoker; Status post placement of implantable loop recorder; Syncope and collapse; Longstanding persistent atrial fibrillation (CMS/HCC); Anticoagulation management encounter; Palpitations; BMI 30.0-30.9,adult; High risk medication use; Bradycardia Start: 10-21-2023 End: 10-21-2023 Subsequent hospital visit by physician [facility] Comment on above: Status post placemen t of implantable loop recorder Start: 10-14-2023 End: 10-14-2023 Evaluation and management of inpatient [facility] Start: 10-14-2023 End: 10-14-2023 Evaluation and management of inpatient ESTHER [facility] Start: 10-14-2023 End: 10-14-2023 Evaluation and management of inpatient GEOVANI N [facility] Start: 10-13-2023 End: 10-13-2023 Evaluation and management of inpatient ESTHER [facility] Start: 10-13-2023 End: 10-13-2023 Evaluation and management of inpatient ESTHER M [facility] Start: 10-13-2023 End: 10-13-2023 Evaluation and management of inpatient GEOVANI N [facility] Start: 10-12-2023 End: 10-12-2023 Evaluation and management of inpatient GEOVANI N [facility] Start: 10-12-2023 End: 10-12-2023 ambulatory ESTHER M [facility] Start: 10-12-2023 End: 10-14-2023 Evaluation and management of inpatient ESTHER M [facility] Start: 10-09-2023 End: 10-10-2023 ambulatory [facility] Start: 10-09-2023 End: 10-09-2023 Subsequent hospital visit by physician [facility] Comment on above: Status post placemen t of implantable loop recorder; Syncope and collapse Start: 10-07-2023 End: 10-07-2023 Emergency department patient visit Harjit Doan [facility] Start: 09-25-2023 End: 09-26-2023 ambulatory [facility] Start: 09-25-2023 End: 09-25-2023 Subsequent hospital visit by physician [facility] Comment on above: Status post placemen t of implantable loop recorder; Syncope and collapse Start: 09-18-2023 End: 09-19-2023 ambulatory [facility] Start: 09-18-2023 End: 09-18-2023 Subsequent hospital visit by physician [facility] Comment on above: Status post placemen t of implantable loop recorder; Syncope and collapse Start: 09-16-2023 End: 09-17-2023 ambulatory [facility] Start: 09-16-2023 End: 09-16-2023 Office outpatient visit 40 minutes Geovani Mack MD Work Phone: [facility] Comment on above: Anticoagulation feliciano gement encounter (Primary Dx); Abnormal EKG; Longstanding persistent atrial fibrillation (CMS/HCC); Primary hypertension; Palpitations; Status post placement of implantable loop recorder; BMI 34.0-34.9,adult; Former smoker Start: 09-16-2023 End: 09-16-2023 Subsequent hospital visit by physician [facility] Comment on above: Presence of other ca rdiac implants and grafts; Syncope and collapse Start: 09-11-2023 End: 09-12-2023 ambulatory GEOVANI N [facility] Start: 09-11-2023 End: 09-11-2023 Subsequent hospital visit by physician [facility] Comment on above: Status post placemen t of implantable loop recorder; Syncope and collapse Start: 09-04-2023 End: 09-05-2023 ambulatory GEOVANI N [facility] Start: 09-04-2023 End: 09-04-2023 Subsequent hospital visit by physician [facility] Comment on above: Status post placemen t of implantable loop recorder; Syncope and collapse Start: 08-26-2023 End[facility] Start: 08-26-2023 End: 08-26-2023 Subsequent hospital visit by physician [facility] Comment on above: Status post placemen t of implantable loop recorder; Syncope and collapse Start: 08-21-2023 End: 08-22-2023 ambulatory [facility] Start: 08-21-2023 End: 08-21-2023 Subsequent hospital visit by physician [facility] Comment on above: Status post placemen t of implantable loop recorder; Syncope and collapse Start: 08-14-2023 End: 08-15-[address] [facility] Start: 08-14-2023 End: 08-14-2023 Subsequent hospital visit by physician [facility] Comment on above: Status post placemen t of implantable loop recorder; Syncope and collapse Start: 08-07-2023 End: 08-08-2023 [address]ACK [facility] Start: 08-07-2023 End: 08-07-2023 Subsequent hospital visit by physician [facility] Comment on above: Status post placemen t of implantable loop recorder; Syncope and collapse Start: 07-16-2023 End: 07-17-2023 [address]ACK [facility] Start: 07-16-2023 End: 07-16-2023 Subsequent hospital visit by physician [facility] Comment on above: Status post placemen t of implantable loop recorder; Syncope and collapse Start: 06-25-2023 End: 06-26-2023 ambulatory Jaja Lee Facility[facility] Start: 06-15-[address] Hermilo Thorne Facility:[id number] Start: 05-11-[address] Hermilo Thorne Facility:[id number] Start: 04-13-2023 ambulatory GEOVANI MACK Facility:[id number] Start: 04-06-2023 End: 04-06-[address] Geovani Mack Facility:[id number] Start: 04-06-2023 End: 04-06-2023 Subsequent hospital visit by physician Geovani Mack MD Work Phone: [facility] Comment on above: Syncope and collapse Start: 03-26-2023 End: 03-27-2023 ambulatory Jaja Lee Facility:[facility] Start: 03-26-2023 End: 03-26-2023 Patient encounter procedure Jaja Lee [facility] Start: 03-24-2023 Office consultation new/estab patient 80 min Hermilo Thorne Work Phone: [facility] DO Work Phone: Start: 03-24-2023 ambulatory GEOVANI MACK Facility:[id number] Start: 02-24-2023 End: 02-25-2023 ambulatory MANDO JIMENEZ Facility:[facility] Start: 02-17-2023 End: 02-17-2023 Emergency department patient visit Tita Navarrotheresa Facility:[facility] Start: 02-13-2023 End: 02-14-2023 ambulatory John Lyn Facility:[facility] Start: 02-13-2023 End: 02-14-2023 Observation Isaías FLEMING [facility] Start: 02-11-2023 End: 02-12-2023 ambulatory MANDO JIMENEZ Facility:[facility] Start: 02-11-2023 End: 02-11-2023 Patient encounter procedure Bushra JIMENEZ [facility] Start: 02-11-2023 End: 02-11-[address] HERMILO THORNE Facility: Start: 01-22-2023 End: 01-26-2023 Evaluation and management of inpatient John S Eboni Facility:[facility] Start: 01-22-2023 End: 01-26-2023 Evaluation and management of inpatient Isaías FLEMING [facility] Start: 01-19-2023 End: 01-20-2023 Evaluation and management of inpatient John S Eboni Facility:[facility] Start: 01-15-2023 End: 01-15-[address] LILIA ENGEL Facility: Start: 01-01-2023 End: 01-02-2023 ambulatory MANDO JIMENEZ Facility:[facility] Start: 12-30-2022 End: 01-23-2023 Pre-admission assessment Kelly MACIAS [facility] Start: 12-24-2022 ambulatory GEOVANI MACK Facility:[id number] Start: 12-22-2022 End: 12-25-2022 Evaluation and management of inpatient Mitchel MEDINA Facility:[facility] Start: 12-20-2022 End: 12-25-2022 Evaluation and management of inpatient Isaías Arteaga LONNIE [facility] Start: 12-17-2022 End: 12-18-[address] LILIA ENGEL Facility:[facility] Start: 12-03-2022 End: 12-03-[address] HERMILO THORNE Facility:[facility] Start: 11-21-2022 End: 11-24-2022 Evaluation and management of inpatient NAKITA LOMAS . Facility:[facility] Start: 10-07-2022 End: 10-08-[address] ADALBERTO RICE . Facility:[facility] Start: 10-04-2022 End: 10-07-2022 Evaluation and management of inpatient DR RAE ELIZALDE . Facility:[facility] Start: 10-01-2022 Office outpatient vi sit 15 minutes Ana Norris [facility] Start: 10-01-2022 End: 10-01-2022 ambulatory Ana Norris Facility:[facility] Start: 10-01-2022 End: 10-01-2022 ambulatory MD Bernie Guerra Work Phone: [facility] Work Phone: Start: 10-01-2022 End: 10-01-2022 Patient encounter procedure MD Bernie Guerra Work Phone: [facility] Work Phone: Start: 09-25-2022 End: 09-26-2022 ambulatory Bernie Guerra Facility:[facility] Start: 09-25-2022 End: 09-26-2022 ambulatory Bernie Guerra Facility:[facility] Start: 09-17-2022 End: 09-17-2022 ambulatory Kamran Wills Facility:[facility] Start: 09-01-2022 End: 09-02-2022 ambulatory Bernie Guerra Facility:[facility] Start: 08-26-2022 ambulatory Hue Monet Facility:[facility] Start: 08-20-2022 End: 08-21-2022 ambulatory Bernie Guerra Facility:[facility] Start: 08-20-2022 End: 08-21-2022 ambulatory Bernie Guerra Facility:[facility] Start: 08-18-2022 End: 08-19-2022 ambulatory Bernie Guerra Facility:[facility] Start: 08-13-2022 End: 08-15-[address] BERNIE GUERRA Facility: Start: 08-04-2022 End: 08-05-2022 ambulatory Bernie Guerra Facility:[facility] Start: 08-04-2022 End: 08-05-2022 ambulatory Bernie Guerra Facility:[facility] Start: 07-31-2022 End: 08-01-2022 ambulatory Bernie Guerra Facility:[facility] Start: 07-15-2022 End: 07-23-2022 Evaluation and management of inpatient Bernie Guerra Facility:[facility] Start: 07-08-2022 End: 07-15-2022 Evaluation and management of inpatient Bernie Guerra Facility:[facility] Start: 07-08-2022 End: 07-09-2022 ambulatory Bernie Guerra Facility:[facility] Start: 06-05-2022 End: 06-05-2022 ambulatory Bernie Arteaga Charlie Facility:[facility] Start: 09-06-2019 End: 09-10-2019 Evaluation and management of inpatient JERI LION [facility] Start: 09-06-2019 End: 09-10-2019 Evaluation and management of inpatient Jeri Lion Work Phone: [facility] Ortho/Med Surg Patient encounter status Hermilo Thorne Work Phone: [facility] DO Work Phone: Procedures Date Procedure Procedure Detail Performing Clinician Start: 11-13-2023 CARDIAC DEVICE CHECK - REMOTE ESTHER LÓPEZ Start: 11-13-2023 ALL CBC WITH AUTO DIFF Hermilo Thorne MD Work Phone: Start: 11-06-2023 CARDIAC DEVICE CHECK - REMOTE ESTHER LÓPEZ Start: 10-30-2023 CARDIAC DEVICE CHECK CHECK - REMOTE ESTHER LÓPEZ Start: 10-21-2023 CARDIAC DEVICE CHECK - IN CLINIC ESTHER LÓPEZ Start: 10-21-2023 Ecg routine ecg w/least 12 lds w/i&r Geovani Mack MD Work Phone: Start: 10-21-2023 Interrog dev eval scrms phys/qhp in person Geovani Mack MD Work Phone: Start: 10-14-2023 DISCHARGE PATIENT ESTHER LÓPEZ Start: 10-14-2023 ECG 12-LEAD ESTHER MARIBEL Start: 10-14-2023 Glucose [Mass/volume] in Serum or Plasma ESTHER LÓPEZ Start: 10-14-2023 Glucose [Mass/volume] in Serum or Plasma ESTHER MARIBEL Start: 10-14-2023 ECG 12-LEAD ESTHER MARIBEL Start: 10-14-2023 Basic metabolic 2000 panel - Serum or Plasma ESTHER LÓPEZ Start: 10-14-2023 Magnesium [Mass/volume] in Serum or Plasma ESTHER LÓPEZ Start: 10-14-2023 ECG 12-LEAD ESTHER MARIBEL Start: 10-13-2023 Glucose [Mass/volume] in Serum or Plasma ESTHER LÓPEZ Start: 10-13-2023 ECG 12-LEAD ESTHER MARIBEL Start: 10-13-2023 Glucose [Mass/volume] in Serum or Plasma ESTHER LÓPEZ Start: 10-13-2023 CARDIOVERSION EXTERNAL ESTHER LÓPEZ Start: 10-13-2023 PULSE OXIMETRY, SPOT ESTHER MARIBEL Start: 10-13-2023 TRANSESOPHAGEAL ECHO (JASMYNE) ESTHER LÓPEZ Start: 10-13-2023 Glucose [Mass/volume] in Serum or Plasma ESTHER MARIBEL Start: 10-13-2023 ECG 12-LEAD ESTHER LÓPEZ Start: 10-13-2023 Glucose [Mass/volume] in Serum or Plasma ESTHER LÓPEZ Start: 10-13-2023 Basic metabolic 2000 panel - Serum or Plasma ESTHER LÓPEZ Start: 10-13-2023 Magnesium [Mass/volume] in Serum or Plasma ESTHER LÓPEZ Start: 10-13-2023 ECG 12-LEAD ESTHER MARIBEL Start: 10-12-2023 Glucose [Mass/volume] in Serum or Plasma ESTHER MARIBEL Start: 10-12-2023 ECG 12-LEAD ESTHER MARIBEL Start: 10-12-2023 TRANSFER PATIENT TO NEW UNIT ESTHER LÓPEZ Start: 10-12-2023 ADMIT TO INPATIENT ESTHER LÓPEZ Start: 10-12-2023 FULL CODE ESTHER MARIBEL Start: 10-12-2023 REASON FOR NO DVT PROPHYLAXIS - HOSPITAL ADMISSION - MEDICATIONS ESTHER LÓPEZ Start: 10-12-2023 TELEMETRY MONITORING ESTHER LÓPEZ Start: 10-12-2023 COAGULATION SCREEN ESTHER LÓPEZ Start: 10-12-2023 Comprehensive metabolic 2000 panel - Serum or Plasma ESTHER LÓPEZ Start: 10-12-2023 Magnesium [Mass/volume] in Serum or Plasma ESTHER LÓPEZ Start: 10-12-2023 TSH WITH REFLEX TO FREE T4 IF ABNORMAL ESTHER LÓPEZ Start: 10-12-2023 CBC panel - Blood by Automated count ESTHER LÓPEZ Start: 10-12-2023 ECG 12-LEAD ESTHER LÓPEZ Start: 10-12-2023 ANTIARRYTHMIC INITIATION MONITORING APPOINTMENT REQUEST ESTHER LÓPEZ Start: 10-09-2023 CARDIAC DEVICE CHECK CHECK - REMOTE ESTHER LÓPEZ Start: 10-09-2023 ECG 12-LEAD GEOVANI MACK Start: 09-25-2023 CARDIAC DEVICE CHECK CHECK - REMOTE ESTHER LÓPEZ Start: 09-18-2023 CARDIAC DEVICE CHECK CHECK - REMOTE ESTHER LÓPEZ Start: 09-16-2023 Ecg routine ecg w/least 12 lds w/i&r Geovani Mack MD Work Phone: Start: 09-16-2023 CARDIAC DEVICE CHECK - IN CLINIC ESTHER LÓPEZ Start: 09-16-2023 Interrog dev eval scrms phys/qhp in person Geovani Mack MD Work Phone: Start: 09-11-2023 CARDIAC DEVICE CHECK CHECK - REMOTE ESTHER LÓPEZ Start: 09-04-2023 CARDIAC DEVICE CHECK CHECK - REMOTE ESTHER LÓPZE Start: 08-26-2023 CARDIAC DEVICE CHECK CHECK - REMOTE ESTHER LÓPEZ Start: 08-21-2023 CARDIAC DEVICE CHECK CHECK - REMOTE ESTHER LÓPEZ Start: 08-14-2023 CARDIAC DEVICE CHECK CHECK - REMOTE ESTHER LÓPEZ Start: 08-07-2023 CARDIAC DEVICE CHECK CHECK - REMOTE ESTHER LÓPEZ Start: 07-16-2023 CARDIAC DEVICE CHECK CHECK - REMOTE ESTHER LÓPEZ Start: 07-16-2023 Rem interrog scrms <30 d phys/qhp Geovani Mack MD Work Phone: Start: 04-06-2023 Basic metabolic panel calcium total Geovani Mack MD Work Phone: Start: 04-06-2023 Complete blood count Geovani Mack MD Work Phone: Start: 04-06-2023 PT and aPTT panel - Platelet poor plasma by Coagulation assay Geovani Mack MD Work Phone: Start: 04-06-2023 ELECTROCARDIOGRAM 12 LEAD Geovani Mack MD Work Phone: Start: 10-01-2022 Plain X-ray of right shoulder MD Bernie Guerra Work Phone: Start: 09-10-2019 INCENTIVE SPIROMETRY RT JERI OLMEDO DDA Start: 09-10-2019 DISCHARGE PATIENT JERI LION Start: 09-10-2019 CPAP JERI SHRESTHAA Start: 09-10-2019 INCENTIVE SPIROMETRY RT JERI OLMEDO DDA Start: 09-10-2019 Glucose blood reagent strip JERI CORDOVAA Start: 09-10-2019 INCENTIVE SPIROMETRY RT JERI OLMEDO DDA Start: 09-10-2019 Glucose blood reagent strip Shawn Brittany Marco noriega Work Phone: Start: 09-10-2019 Gluc bld gluc mntr dev cleared fda spec home use JERI SHRESTHAA Start: 09-10-2019 CPAP JERI SHRESTHAA Start: 09-10-2019 INCENTIVE SPIROMETRY RT JERI OLMEDO DDA Start: 09-10-2019 INITIATE OXYGEN THERAPY PROTOCOL JERI LION Start: 09-10-2019 NASAL CANNULA OXYGEN JERI LION Start: 09-10-2019 AMBULATE PATIENT JERI LION Start: 09-10-2019 STRIP BULB SUCTION JERI LION Start: 09-10-2019 Glucose blood reagent strip JERI KYLE Start: 09-10-2019 INCENTIVE SPIROMETRY RT JERI OLMEDO DDA Start: 09-10-2019 Glucose blood reagent strip Shawn Allenhomre noriega Work Phone: Start: 09-10-2019 CPAP JERI ZIMMERADDA Start: 09-10-2019 Gluc bld gluc mntr dev cleared fda spec home use JERI ZIMMERADDA Start: 09-10-2019 INTAKE AND OUTPUT JERI ZIMMERADDA Start: 09-10-2019 CPAP JERI ZIMMERADDA Start: 09-10-2019 IP CONSULT TO INFECTIOUS DISEASES JERI ZIMMERADDA Start: 09-10-2019 Gluc bld gluc mntr dev cleared fda spec home use JERI LION Start: 09-10-2019 INCENTIVE SPIROMETRY RT JERI PARISH Start: 09-09-2019 Glucose blood reagent strip JERI KYLE Start: 09-09-2019 CPAP JERI LION Start: 09-09-2019 INCENTIVE SPIROMETRY RT JERI PARISH Start: 09-09-2019 Glucose blood reagent strip Jeri kyle Work Phone: Start: 09-09-2019 Gluc bld gluc mntr dev cleared fda spec home use JERI LION Start: 09-09-2019 INCENTIVE SPIROMETRY RT JERI PARISH Start: 09-09-2019 Glucose blood reagent strip JERI KYLE Start: 09-09-2019 CPAP JERI LION Start: 09-09-2019 INCENTIVE SPIROMETRY RT JERI PARISH Start: 09-09-2019 Glucose blood reagent strip Jeri kyle Work Phone: Start: 09-09-2019 TRANSFER PATIENT JERI LION Start: 09-09-2019 INCENTIVE SPIROMETRY RT JERI PARISH Start: 09-09-2019 Glucose blood reagent strip JERI KYLE Start: 09-09-2019 DIET GENERAL JERI LION Start: 09-09-2019 ASH TUBE DRAIN JERI LION Start: 09-09-2019 MISCELLANEOUS NURSING CARE ORDER (SPECIFY) JERI LION Start: 09-09-2019 PT EVAL AND TREAT JERI LION Start: 09-09-2019 WOUND CARE JERI LION Start: 09-09-2019 CPAP JERI LION Start: 09-09-2019 INCENTIVE SPIROMETRY RT JERI PARISH Start: 09-09-2019 Glucose blood reagent strip Jeri kyle Work Phone: Start: 09-09-2019 TRANSFER PATIENT JERI LION Start: 09-09-2019 INCENTIVE SPIROMETRY RT JERI OLMEDO DDA Start: 09-09-2019 Gluc bld gluc mntr dev cleared fda spec home use JERI LION Start: 09-09-2019 Glucose blood reagent strip Jeri kyle Work Phone: Start: 09-09-2019 CPAP JERI LION Start: 09-09-2019 INCENTIVE SPIROMETRY RT JERI OLMEDO DDA Start: 09-09-2019 INITIATE OXYGEN THERAPY PROTOCOL JERI LION Start: 09-09-2019 NASAL CANNULA OXYGEN JERI LION Start: 09-09-2019 Glucose blood reagent strip Jeri kyle Work Phone: Start: 09-09-2019 INCENTIVE SPIROMETRY RT JERI OLMEDO DDA Start: 09-09-2019 Blood count complete auto&auto difrntl wbc JERI LION Start: 09-09-2019 Comprehensive metabolic panel JERI LION Start: 09-09-2019 CPAP JERI LION Start: 09-09-2019 Gluc bld gluc mntr dev cleared fda spec home use JERI LION Start: 09-09-2019 BASIC METABOLIC PANEL W/ REFLEX TO MG FOR LOW K Ceci Turcios Work Phone: Start: 09-09-2019 Blood count complete auto&auto difrntl wbc Ceci Turcios Work Phone: Start: 09-09-2019 INTAKE AND OUTPUT JERI LION Start: 09-09-2019 CPAP JERI LION Start: 09-09-2019 Gluc bld gluc mntr dev cleared fda spec home use JERI SHRESTHAA Start: 09-09-2019 INCENTIVE SPIROMETRY RT JERI OLMEDO DDA Start: 09-08-2019 CPAP JERI SHRESTHAA Start: 09-08-2019 INCENTIVE SPIROMETRY RT JERI OLMEDO DDA Start: 09-08-2019 Glucose blood reagent strip JERI KYLE Start: 09-08-2019 Gluc bld gluc mntr dev cleared fda spec home use JERI LION Start: 09-08-2019 INCENTIVE SPIROMETRY RT JERI OLMEDO DDA Start: 09-08-2019 Glucose blood reagent strip Jeri kyle Work Phone: Start: 09-08-2019 Glucose blood reagent strip JERI KYLE Start: 09-08-2019 CPAP JERI LION Start: 09-08-2019 INCENTIVE SPIROMETRY RT JERI PARISH Start: 09-08-2019 Glucose blood reagent strip Jeri kyle Work Phone: Start: 09-08-2019 INCENTIVE SPIROMETRY RT JERI PARISH Start: 09-08-2019 Glucose blood reagent strip JERI KYLE Start: 09-08-2019 CPAP JERI LION Start: 09-08-2019 INCENTIVE SPIROMETRY RT JERI PARISH Start: 09-08-2019 OT EVAL AND TREAT JERI LION Start: 09-08-2019 PT EVAL AND TREAT JERI LION Start: 09-08-2019 Glucose blood reagent strip Jeri kyle Work Phone: Start: 09-08-2019 INCENTIVE SPIROMETRY RT JERI PARISH Start: 09-08-2019 Glucose blood reagent strip Jeri kyle Work Phone: Start: 09-08-2019 Gluc bld gluc mntr dev cleared fda spec home use JERI LION Start: 09-08-2019 MISCELLANEOUS NURSING CARE ORDER (SPECIFY) JERI LION Start: 09-08-2019 CPAP JERI LION Start: 09-08-2019 INCENTIVE SPIROMETRY RT JERI PARISH Start: 09-08-2019 INITIATE OXYGEN THERAPY PROTOCOL JERI LION Start: 09-08-2019 NASAL CANNULA OXYGEN JERI LION Start: 09-08-2019 Glucose blood reagent strip Jeri kyle Work Phone: Start: 09-08-2019 Glucose blood reagent strip Jeri kyle Work Phone: Start: 09-08-2019 AMBULATE PATIENT JERI LION Start: 09-08-2019 INCENTIVE SPIROMETRY RT JERI PARISH Start: 09-08-2019 Glucose blood reagent strip Jeri kyle Work Phone: Start: 09-08-2019 Blood count complete auto&auto difrntl wbc JERI ZIMMERADDA Start: 09-08-2019 Comprehensive metabolic panel JERI ZIMMERADDA Start: 09-08-2019 Glucose blood reagent strip Jeri jimadda Work Phone: Start: 09-08-2019 CPAP JERI ZAMBRANORAGADDA Start: 09-08-2019 Gluc bld gluc mntr dev cleared fda spec home use JERI ESSIE Start: 09-08-2019 BASIC METABOLIC PANEL W/ REFLEX TO MG FOR LOW K Ceci Turcios Work Phone: Start: 09-08-2019 Blood count complete auto&auto difrntl wbc Ceci Turcios Work Phone: Start: 09-08-2019 End: 09-08-2019 Glucose blood reagent strip Jeri kyle Work Phone: Start: 09-08-2019 End: 09-08-2019 Glucose blood reagent strip Jeri kyle Work Phone: Start: 09-08-2019 INTAKE AND OUTPUT JERI ZIMMERADDA Start: 09-08-2019 CPAP JERI ZIMMERADDA Start: 09-08-2019 Gluc bld gluc mntr dev cleared fda spec home use JERI ZIMMERADDA Start: 09-08-2019 Glucose blood reagent strip Jeri jimadda Work Phone: Start: 09-08-2019 INCENTIVE SPIROMETRY RT JERI ZAMBRANORAGA DDA Start: 09-07-2019 CPAP JERI ZAMBRANORAGADDA Start: 09-07-2019 Glucose blood reagent strip Jeri jimadda Work Phone: Start: 09-07-2019 INCENTIVE SPIROMETRY RT JERI ZAMBRANORAGA DDA Start: 09-07-2019 End: 09-07-2019 Glucose blood reagent strip Jeri jimadda Work Phone: Start: 09-07-2019 Gluc bld gluc mntr dev cleared fda spec home use JERI ESSIE Start: 09-07-2019 INCENTIVE SPIROMETRY RT JERI ZAMBRANORAGA DDA Start: 09-07-2019 Glucose blood reagent strip Jeri kyle Work Phone: Start: 09-07-2019 Glucose blood reagent strip Jeri kyle Work Phone: Start: 09-07-2019 INCENTIVE SPIROMETRY RT JERI OLMEDO DDA Start: 09-07-2019 Glucose blood reagent strip Jeri kyle Work Phone: Start: 09-07-2019 Glucose blood reagent strip Jeri kyle Work Phone: Start: 09-07-2019 INCENTIVE SPIROMETRY RT JERI OLMEDO DDA Start: 09-07-2019 INCENTIVE SPIROMETRY RT JERI OLMEDO DDA Start: 09-07-2019 ELEVATE HEELS OFF OF BED JERI HOLDER Start: 09-07-2019 HEAD OF BED 60 DEGREES OR LESS JERI LION Start: 09-07-2019 MISCELLANEOUS NURSING CARE ORDER (SPECIFY) JERI LION Start: 09-07-2019 NURSING COMMUNICATION JERI Arteaga Start: 09-07-2019 SKIN CARE JERI LION Start: 09-07-2019 TURN PATIENT JERI LION Start: 09-07-2019 End: 09-07-2019 Glucose blood reagent strip Jeri kyle Work Phone: Start: 09-07-2019 Glucose blood reagent strip Jeri kyle Work Phone: Start: 09-07-2019 INCENTIVE SPIROMETRY RT JERI PARISH Start: 09-07-2019 Gluc bld gluc mntr dev cleared fda spec home use JERI LION Start: 09-07-2019 INCENTIVE SPIROMETRY RT JERI PARISH Start: 09-07-2019 End: 09-07-2019 Glucose blood reagent strip Jeri kyle Work Phone: Start: 09-07-2019 NASAL CANNULA OXYGEN JERI LION Start: 09-07-2019 INITIATE OXYGEN THERAPY PROTOCOL JERI ESSIE Start: 09-07-2019 IP CONSULT TO MEDICATION RECONCILIATION TECHNICIAN JERI LION Start: 09-07-2019 WOUND CARE JERI LION Start: 09-07-2019 DIETARY NUTRITION SUPPLEMENTS JERI LION Start: 09-07-2019 End: 09-07-2019 Glucose blood reagent strip Jeri kyle Work Phone: Start: 09-07-2019 Blood count complete auto&auto difrntl wbc JERI LION Start: 09-07-2019 Comprehensive metabolic panel JERI LION Start: 09-07-2019 Hemoglobin glycosylated a1c JERI KYLE Start: 09-07-2019 Glucose blood reagent strip Jeri kyle Work Phone: Start: 09-07-2019 Gluc bld gluc mntr dev cleared fda spec home use JERI LION Start: 09-07-2019 Culture bacterial blood aerobic w/id isolates JERI LION Start: 09-07-2019 BASIC METABOLIC PANEL W/ REFLEX TO MG FOR LOW K Ceci Turcios Work Phone: Start: 09-07-2019 Blood count complete auto&auto difrntl wbc Ceci Turcios Work Phone: Start: 09-07-2019 Hemoglobin glycosylated a1c Rocky G W ursbrenton Work Phone: Start: 09-07-2019 DAILY WEIGHTS JERI LION Start: 09-07-2019 INTAKE AND OUTPUT JERI LION Start: 09-07-2019 Gluc bld gluc mntr dev cleared fda spec home use JERI LION Start: 09-07-2019 Glucose blood reagent strip JERI KYLE Start: 09-07-2019 Assay of lactate JERI LION Start: 09-07-2019 Blood count complete auto&auto difrntl wbc JERI LION Start: 09-07-2019 C-reactive protein JERI LION Start: 09-07-2019 Ketone bodies serum quantitative JERI LION Start: 09-07-2019 TYPE AND SCREEN JERI LION Start: 09-06-2019 Iadna s aureus methicillin resist amp probe tq JERI LION Start: 09-06-2019 Glucose blood reagent strip JERI KYLE Start: 09-06-2019 Antibody screen Jeri Lion Start: 09-06-2019 Culture bacterial quanttative colony count urine JERI LION Start: 09-06-2019 Cul bact xcpt urine blood/stool aerobic isol JERI LION Start: 09-06-2019 Cul prsmptv pthgnc organism scrn w/colony estimj JERI LION Start: 09-06-2019 Assay of lactate Benjamin Chapman Work Phone: Start: 09-06-2019 Blood count complete auto&auto difrntl wbc Benjamin Chapman Work Phone: Start: 09-06-2019 C-reactive protein Benjamin Chapman Work Phone: Start: 09-06-2019 End: 09-06-2019 Glucose blood reagent strip Jeri kyle Work Phone: Start: 09-06-2019 Ketone bodies serum quantitative Rocky Wray Work Phone: Start: 09-06-2019 Blood typing serologic abo Benjamin farris Work Phone: Start: 09-06-2019 Iadna s aureus methicillin resist amp probe tq Ang Min Work Phone: Start: 09-06-2019 TRANSFER PATIENT JERI LION Start: 09-06-2019 Culture bacterial quanttative colony count urine Jeri Lion Work Phone: Start: 09-06-2019 Autol bld/component collj storage predeposited JERI LION Start: 09-06-2019 End: 09-06-2019 Glucose blood reagent strip Jeri kyle Work Phone: Start: 09-06-2019 Cul prsmptv pthgnc organism scrn w/colony estimj Jeri Lion Work Phone: Start: 09-06-2019 REASON FOR NO CHEMICAL VTE PROPHYLAXIS JERI LION Start: 09-06-2019 FULL CODE JERI LION Start: 09-06-2019 INITIATE OXYGEN THERAPY PROTOCOL JERI LION Start: 09-06-2019 INTAKE AND OUTPUT JERI LION Start: 09-06-2019 IP CONSULT TO GENERAL SURGERY JERI LION Start: 09-06-2019 PLACE INTERMITTENT PNEUMATIC COMPRESSION DEVICE JERI LION Start: 09-06-2019 RESPIRATORY CARE EVALUATION ONLY JERI LION Start: 09-06-2019 TELEMETRY MONITORING JERI LION Start: 09-06-2019 TOBACCO CESSATION EDUCATION JERI KYLE Start: 09-06-2019 VITAL SIGNS JERI LION Start: 09-06-2019 End: 09-06-2019 LEG INCISION AND DRAINAGE Lemuel Debbie Low ed Work Phone: Start: 09-06-2019 BLOOD BANK SPECIMEN Jeri Lion Work Phone: Start: 09-06-2019 RESPIRATORY CARE EVALUATION ONLY Benjamin Chapman Work Phone: Start: 09-06-2019 PATIENT STATUS (DIRECT) JERI OLMEDO DDA 0 dx img order chest xray ct us mri pet/nuc med Jaja Lee Cardiac catheterization Ruge n M Tioga Work Phone: Catheter ablation of arrhythmogenic focus Rugen M Mati Work Phone: Laparoscopic cholecystectomy Rugen M Mati Work Phone: Operative procedure on knee Rugen M Mati Work Phone: Procedure on back Rugen M Al da Work Phone: Repair of shoulder Rugen M A lda Work Phone: Plan of Treatment Date Care Activity Detail Author Start: 04-20-2024 End: 04-20-2024 Patient encounter procedure 04/20/2024 11:00 AM EDT Office Visit [facility] [address] [address] [place] [id number] Geovani Mack MD [address] [facility] [address], [address] [place] [address] [facility] Start: 01-20-2024 End: 01-20-2024 Patient encounter procedure 01/20/2024 10:30 AM EDT Office Visit [facility] [address] [facility] [address] [place] [id number] Risa Barraza, IDENTIFICATION TECHNICIAN-DRAPERY MAKER [address] [facility] Medical Office Bldg, [address] [place] [address] [facility] Start: 10-21-2023 End: 10-21-2023 Patient encounter procedure 10/21/2023 12:45 PM EST Office Visit [facility] [address] [address] [place] [phone] Geovani Mack MD [address] [facility] Medical Office Bldg, [address] [place] [address] [facility] Start: 09-16-2023 End: 09-16-2023 Patient encounter procedure [facility] Start: 06-05-2023 Influenza vaccination Influenza Vacc ine (#1) [facility] Start: 04-13-2023 FUV, Provider: Geovani Mack, Status: Pen, Time: 10:30 AM FUV, Provider: Geovani Mack, Status: Pen, Time: 10:30 AM [facility] [address] DO Work Phone: Start: 09-09-2020 Creatinine monitoring Creatinine mon itoring [place] Start: 09-09-2020 Potassium monitoring Potassium monit [place], [place] Start: 06-05-2019 Influenza vaccination Flu vaccine (# 1) [place], [place] Start: 2018 Abdominal aortic aneurysm screening Abdominal Aortic Aneurysm (AAA) Screening [facility] Start: 2018 Pneumococcal 65+ yea rs Vaccine (1 of 1 - PPSV23) Pneumococcal 65+ years Vaccine (1 of 1 - PPSV23) [place] Start: 2018 Pneumococcal Vaccine : 65+ Years (1 - PCV) Pneumococcal Vaccine: 65+ Years (1 - PCV) [facility] Start: 2003 Zoster Vaccines (1 o f 2) Zoster Vaccines (1 of 2) [facility] Start: 1975 DTaP/Tdap/Td Vaccine s (1 - Tdap) DTaP/Tdap/Td Vaccines (1 - Tdap) [facility] Start: 1972 Urine screening for protein Diabetes: Urine Protein Screening [facility] Start: 1971 Diabetes mellitus screening Diabetes Screening [facility] Start: 1971 Hepatitis C screening Hepatitis C Sc reening [facility] Start: 1963 Diabetic foot examination Diabetes: Foot Exam [facility] Start: 1963 Glaucoma screening Diabetes: R etinopathy Screening [facility] Start: 1959 Pneumococcal Vaccine : 65+ Years (1 - PCV) Pneumococcal Vaccine: 65+ Years (1 - PCV) [facility] Start: 04-17-1954 COVID-19 Vaccine (#1) COVID-19 Vacci ne (#1) [facility] Start: 1953 Hemoglobin A1c measurement Diabetes: Hemoglobin A1C [facility] Start: 1953 Lipid panel Lipid Panel [facility] Start: 1953 Medicare Annual Wellness Visit Medicare Annual Wellness Visit (AWV) [facility] Start: 1953 Screening for malign ant neoplasm of colon [facility] Anaerobic and Aerobi c Culture Anaerobic and Aerobic Culture Microbiology Routine 09/06/2019 8:39 PM EST [place] End: 09-16-2024 Cardiac Device Check - In Clinic Cardiac Device Check - In Clinic Implantable Cardiac Device Routine Status post placement of implantable loop recorder 1 Occurrences starting 09/16/2023 until 09/16/2024 [facility] Work Phone: Comment on above: 1 Occurrences starti ng 09/16/2023 until 09/16/2024 Cardiac device check - In Clinic Cardiac device check - In Clinic Implantable Cardiac Device Routine Presence of other cardiac implants and grafts Syncope and collapse 09/16/2023 12:04 PM EST [facility] Work Phone: Cardiac Device Check - In Clinic Cardiac Device Check - In Clinic Implantable Cardiac Device Routine Status post placement of implantable loop recorder 10/21/2023 11:30 AM EST [facility] Work Phone: End: 08-07-2023 Cardiac Device Check - Remote [facility] Work Phone: Comment on above: Once for 1 Occurrenc es starting 08/07/2023 until 08/07/2023 End: 08-14-2023 Cardiac Device Check - Remote [facility] Work Phone: Comment on above: Once for 1 Occurrenc es starting 08/14/2023 until 08/14/2023 End: 08-21-2023 Cardiac Device Check - Remote [facility] Work Phone: Comment on above: Once for 1 Occurrenc es starting 08/21/2023 until 08/21/2023 End: 08-26-2023 Cardiac Device Check - Remote [facility] Work Phone: Comment on above: Once for 1 Occurrenc es starting 08/26/2023 until 08/26/2023 End: 09-04-2023 Cardiac Device Check - Remote [facility] Work Phone: Comment on above: Once for 1 Occurrenc es starting 09/04/2023 until 09/04/2023 End: 09-11-2023 Cardiac Device Check - Remote [facility] Work Phone: Comment on above: Once for 1 Occurrenc es starting 09/11/2023 until 09/11/2023 End: 09-18-2023 Cardiac Device Check - Remote [facility] Work Phone: Comment on above: Once for 1 Occurrenc es starting 09/18/2023 until 09/18/2023 End: 09-25-2023 Cardiac Device Check - Remote [facility] Work Phone: Comment on above: Once for 1 Occurrenc es starting 09/25/2023 until 09/25/2023 End: 10-09-2023 Cardiac Device Check - Remote [facility] Work Phone: Comment on above: Once for 1 Occurrenc es starting 10/09/2023 until 10/09/2023 End: 10-30-2023 Cardiac Device Check - Remote [facility] Work Phone: Comment on above: Once for 1 Occurrenc es starting 10/30/2023 until 10/30/2023 End: 11-06-2023 Cardiac Device Check - Remote [facility] Work Phone: Comment on above: Once for 1 Occurrenc es starting 11/06/2023 until 11/06/2023 CPAP CPAP Respiratory Care Routine Every 4hr until discontinued starting 09/08/2019 [place] Comment on above: Every 4hr until disc ontinued starting 09/08/2019 Culture Blood #1 [facility] [place] Incentive spirometry RT Incentiv e spirometry RT Respiratory Care Routine Every 2hr while awake until discontinued starting 09/07/2019 [facility] [place] Comment on above: Every 2hr while awak e until discontinued starting 09/07/2019 Initiate Oxygen Ther apy Protocol Initiate Oxygen Therapy Protocol Respiratory Care Routine Daily until discontinued starting 09/06/2019 [facility] [place] Comment on above: Daily until disconti nued starting 09/06/2019 MDI Treatment MDI Treatment Respiratory Care Routine Every 6hr As Needed until discontinued starting 09/07/2019 [facility] [place] Comment on above: Every 6hr As Needed until discontinued starting 09/07/2019 Nasal Cannula Oxygen Nasal Cannu la Oxygen Respiratory Care Routine Daily until discontinued starting 09/07/2019 [place] Comment on above: Daily until disconti nued starting 09/07/2019 POCT glucose [place] Comment on above: 4X Daily (AC & HS) u ntil discontinued starting 09/07/2019 As Needed until disc ontinued starting 09/06/2019 As Needed until disc ontinued starting 09/07/2019 As Needed until disc ontinued starting 09/08/2019 Tissue Culture Tissue Culture Microbiology Routine 09/06/2019 8:39 PM EST [place] Immunizations Immunization Date Immunization Notes Care Provider [facility] 08-04-2022 Influenza, Seasonal, Quadrivalent, Adjuvanted Hermilo Thorne MD Work Phone: [facility] 08-04-2022 influenza virus vaccine, unspecified formulation [facility] Work Phone: 09-16-2021 influenza, injectabl e, quadrivalent, preservative free Hermilo Thorne MD Work Phone: [facility] Healthcare 07-09-2020 influenza, injectabl e, quadrivalent, preservative free Hermilo Thorne MD Work Phone: [facility] Healthcare Payers Date Payer Category Payer Medicaid [id number] 2022 Unknown 2022 Self-pay 2019 Private Health Insurance [employer] MEDICARE SUPP xxxxxxxxxxx 2019-Present [phone] [address] [place] [address] xxxxxxxxxxx [id number] 2018 Medicare MEDICARE MEDICAR E PART A AND B xxxxxxxxxx 2018-Present [phone] [address] [address] [place] [address] xxxxxxxxxx [id number] 2018 Medicare [id number] 2018 Medicare [id number]. [id number] 1959 Medicaid [id number] 1959 Medicare [id number] 1959 Private Health Insurance [id number] 1959 Unknown [id number] 1953 Unknown [id number] 2.16.840.1.741752.3.579.2. 175 1953 Unknown [id number] 2.16.840.1.244638.3.579.2. 593 1953 Unknown [id number] 2.16.840.1.815718.3.579.2. 593 1953 Unknown [id number] 2.16.840.1.292477.3.579.2. 593 1953 Unknown [id number] 2.16.840.1.450107.3.579.2. 593 1953 Unknown [id number] 2.16.840.1.757001.3.579.2. 593 1953 Unknown [id number] 2.16.840.1.781765.3.579.2. 593 1953 Unknown [id number] 2.16.840.1.324921.3.579.2. 593 1953 Unknown [id number] 2.16.840.1.223034.3.579.2. 593 1953 Unknown [id number] 2.16.840.1.781449.3.579.2. 718 1953 Unknown [id number] 2.16.840.1.830595.3.579.2. 718 1953 Unknown [id number] 2.16.840.1.091925.3.579.2. 718 1953 Unknown [id number] 2.16.840.1.267279.3.579.2. 718 1953 Unknown [id number] 2.16.840.1.404409.3.579.2. 718 1953 Unknown [id number] 2.16.840.1.227446.3.579.2. 718 1953 Unknown [id number] 2.16.840.1.337191.3.579.2. 71 1953 Unknown [id number] 2.16.840.1.385860.3.579.2. 718 1953 Unknown [id number] 2.16.840.1.474306.3.579.2. 71 1953 Unknown [id number] 2.16.840.1.903301.3.579.2. 1953 Unknown [id number] 2.16.840.1.092677.3.579.2. 1953 Unknown [id number] 2.16.840.1.675526.3.579.2. 1953 Unknown [id number] 2.16.840.1.845494.3.579.2. 1953 Unknown [id number] 2.16.840.1.117511.3.579.2. 1953 Unknown [id number] 2.16.840.1.021013.3.579.2. 1953 Unknown [id number] 2.16.840.1.415425.3.579.2. 1067 1953 Unknown [id number] 2.16.840.1.321643.3.579.2. 8 1953 Unknown [id number] 2.16.840.1.642042.3.579.2. 1067 1953 Unknown [id number] 2.16.840.1.520930.3.579.2. 1953 Unknown [id number] 2.16.840.1.008827.3.579.2. 1953 Unknown [id number] 2.16.840.1.748836.3.579.2. 1953 Unknown [id number] 2.16.840.1.784693.3.579.2. 1953 Unknown [id number] 2.16.840.1.749782.3.579.2. 1953 Unknown [id number] 2.16.840.1.285821.3.579.2. 1953 Unknown [id number] 2.16.840.1.099128.3.579.2. 727 1953 Unknown [id number] 2.16.840.1.256070.3.579.2. 727 1953 Unknown [id number] 2.16.840.1.774423.3.579.2. 727 1953 Unknown [id number] 2.16.840.1.453799.3.579.2. 727 1953 Unknown [id number] 2.16.840.1.602673.3.579.2. 727 1953 Unknown [id number] 2.16.840.1.109937.3.579.2. 356 1953 Unknown [id number] 2.16.840.1.255255.3.579.2. 356 1953 Unknown [id number] 2.16.840.1.180011.3.579.2. 356 1953 Unknown [id number] 2.16.840.1.146850.3.579.2. 4 1953 Unknown [id number] 2.16.840.1.178847.3.579.2. 4 1953 Unknown [id number] 2.16.840.1.810212.3.579.2. 1244 1953 Unknown [id number] 2.16.840.1.968932.3.579.2. 1246 1953 Unknown [id number] 2.16.840.1.879188.3.579.2. 1245 1953 Unknown [id number] 2.16.840.1.038936.3.579.2. 6 1953 Unknown [id number] 2.16.840.1.234532.3.579.2. 124 1953 Unknown [id number] 2.16.840.1.200430.3.579.2. 1246 1953 Unknown [id number] 2.16.840.1.005841.3.579.2. 1245 1953 Unknown [id number] 2.16.840.1.904464.3.579.2. 1245 1953 Unknown [id number] 2.16.840.1.924215.3.579.2. 1245 1953 Unknown [id number] 2.16.840.1.848205.3.579.2. 1245 1953 Unknown [id number] 2.16.840.1.348699.3.579.2. 1245 1953 Unknown [id number] 2.16.840.1.268543.3.579.2. 1245 1953 Unknown [id number] 2.16.840.1.174306.3.579.2. 1245 1953 Unknown [id number] 2.16.840.1.873408.3.579.2. 1245 1953 Unknown [id number] 2.16.840.1.640977.3.579.2. 1245 1953 Unknown [id number] 2.16.840.1.228854.3.579.2. 1245 1953 Unknown [id number] 2.16.840.1.463925.3.579.2. 1245 1953 Unknown [id number] 2.16.840.1.000063.3.579.2. 1245 1953 Unknown [id number] 2.16.840.1.129483.3.579.2. 1245 1953 Unknown [id number] 2.16.840.1.390274.3.579.2. 1245 1953 Unknown [id number] 2.16.840.1.709852.3.579.2. 1245 1953 Unknown [id number] 2.16.840.1.584189.3.579.2. 1246 1953 Unknown [id number] 2.16.840.1.042543.3.579.2. 1246 1953 Unknown [id number] 2.16.840.1.266238.3.579.2. 1246 1953 Unknown [id number] 2.16.840.1.275859.3.579.2. 124 Unknown [id number] 2.16.840.1.949278.3.579.2. 531 Unknown Dima BC/BS HUONG [id number] Social History Date Type Detail Facility Start: 09[facility]09-[facility] [place] Start: 09-09-2019 End: 03-18-2023 Cigarettes smoked current (pack per day) - Reported [place] Comment on above: 1 cup daily; quit 10/2022, smoked X 50 years; Start: 09-09-2019 Alcohol intake Lifetime non-d emanuel (finding) [place] Start: 09-07-2019 History SDOH Alcohol Frequency 1 [place] Start: 09-07-2019 Tobacco Comment currently quit ting, now 5 cigs/day [place], [place] Start: 1955 Sex Assigned At Not on file [place] Start: 1955 Sex Assigned At Male F [facility] Start: 03-18-2023 End: 09-16-2023 Sex Assigned At [facility] Start: 12-21-2022 Tobacco smoking status Heavy t obacco smoker (finding) [facility] Comment on above: 1.5 ppd. Has not smo ked since October 03, 2022 Tobacco quit this month Tobacco Use:. [facility] Comment on above: unknown. unable to a ssess at this time. Tobacco smoking status No Smokin g Status Entered [facility] Start: 02-11-2023 End: 03-18-2023 Tobacco smoking status Ex-smoker (finding) [facility] Comment on above: unknown. unable to a ssess at this time. Tobacco smoking status Never [facility] Comment on above: unknown. unable to a ssess at this time. [facility] Work Phone: Start: 07-06-2023 End: 07-16-2023 Exposure to SARS-CoV-2 (event) Unable to assess [facility] End: 10-05-2022 History of tobacco use Current smoker [facility] Work Phone: End: 10-05-2022 History of tobacco use Cigarette Smoker [facility] Work Phone: Start: 03-18-2023 End: 09-16-2023 Tobacco use and exposure Smokeless tobacco non-user [facility] Work Phone: Start: 03-18-2023 End: 09-16-2023 Alcohol intake Ex-drinker (finding) [facility] Work Phone: Start: 09-06-2023 End: 10-21-2023 Exposure to SARS-CoV-2 (event) Not sure [facility] Functional Status Date Assessment Result Facility 03-26-2023 Functional Status No [facility] 02-13-2023 Functional Status N/A [facility] 02-13-2023 Functional Status [facility] 02-11-2023 Functional Status No [facility] 01-22-2023 Functional Status N/A [facility] 01-22-2023 Functional Status [facility] 12-21-2022 Functional Status N/A [facility] 12-20-2022 Functional Status [facility] Clinical Notes 03-25-2022 to 10-21-2023 Geovani Mack MD - 10/21/2023 12:45 PM ESTPatient Alexis Mack MD - 09/16/2023 12:30 PM ESTPatient InstructionsGeovani Mack MD - 04/06/2023 3:30 PM EDT Note Date & Type Note Facility 10-21-2023 History of Present illness Narrative CARDIOLOGY OFFICE VISIT CHIEF COMPLAINT Chief Complaint Patient presents with Follow-up 4 weeks HISTORY OF PRESENT ILLNESS HPI 68-year-old male with a past medical history of coronary artery disease, reflux disease, dementia, diabetes mellitus, hypertension, hyperlipidemia and seizure disorder. Also history of diabetes mellitus. Patient had a history of atrial fibrillation for which he was on calcium channel and also beta-celsa therapy and Eliquis. Patient apparently for the last year he has been having frequent episodes of dizziness and syncope for which beta-blockers and calcium channel celsa have been decreased due to possibility of bradycardia and also he has been off Plavix and Eliquis therapy. Patient had an outside Holter monitor performed that shows sinus bradycardia with brief episodes of paroxysmal supraventricular and nonsustained ventricular tachycardia up to 6 beats of duration. Also during hospitalizations due to syncope, he was orthostatic for which recently was placed on midodrine decrease in the frequency of the syncopal episodes. An echocardiogram in December 2022 shows left ventricular ejection fraction 60 to 65% with grade 2 diastolic dysfunction. Trace tricuspid regurgitation. A stress echocardiogram in January 2023 shows no evidence of ischemia with a left ventricular ejection fraction 60 to 65%. Patient was seen in my office at the beginning of September 2023. At time he was complaining of tiredness and fatigue. He has episodes of atrial fibrillation with rapid ventricular response. We discussed the option for pacemaker implantation due to tachybradycardia syndrome but he had significant lesions in the skin due to his bullous pemphigoid and he was treated with a bipolar tablets with the steroids. Patient states that he continues having episodes of palpitations on and off. Loop recorder implantation was review and patient apparently is still have episodes of atrial fibrillation with a burden approximately 2% per device interrogation. During the last office visit, he was still in atrial flutter. He was admitted for drug load with high risk medication last week. During this admission, he underwent a JASMYNE guided cardioversion successful conversion to sinus rhythm. He was loaded with dofetilide 125 mg twice a day. JASMYNE performed October 2023 showed CONCLUSIONS: 1. Left ventricular systolic function is moderately decreased. 2. There is mildly reduced right ventricular systolic function. 3. The left atrium is moderately dilated. 4. Left atrium measures about 5 cm in transverse diameter. 5. The right atrium is moderately dilated. 6. RVSP within normal limits. 7. There is no aortic stenosis or regurgitation. There is aortic sclerosis. Aortic root size measures 3.8 cm. Ascending aorta measures 3.9 cm. 8. Left ventricular cavity size is moderately dilated. 9. No left atrial mass. 10. No left atrial thrombus. 11. No evidence of left atrial or left atrial appendage mass thrombus or spontaneous echo contrast. 12. Average left atrial appendage velocity 60 cm/s. 13. Biatrial enlargement. 14. No PFO or ASD or atrial septal aneurysm. 15. Dilated cardiomyopathy with LVEF of about 30% possibly rate related?. 16. Okay to proceed with electrical cardioversion as planned. Patient was discharged home last week and he was diagnosed with COVID-19 infection few days later. He has recovered from this. EKG performed today shows sinus bradycardia left axis deviation incomplete right bundle branch block at a rate of 58 bpm QRS duration 110 ms QT greater than 167 ms. Rhythm strip shows the same pattern. Patient had a loop recorder interrogation today and it shows no significant episodes since October 09, 2023. Patient overall is doing much better. Denies any palpitations. No shortness of breath. Past Medical History Past Medical History: Diagnosis Date Arrhythmia Coronary artery disease Dementia (CMS/HCC) Diabetes mellitus (CMS/HCC) GERD (gastroesophageal reflux disease) Hyperlipidemia Hypertension Orthostatic hypotension Seizures (CMS/HCC) Syncope Social History Social History Tobacco Use Smoking status: Former Types: Cigarettes Quit date: 10/2022 Years since quittin.0 Smokeless tobacco: Never Substance Use Topics Alcohol use: Not Currently Drug use: Never Family History Family History Problem Relation Name Age of Onset Cancer Mother Diabetes type II Mother Other (cva) Mother Other (black lung) Father Allergies: Allergies Allergen Reactions Hydromorphone Unknown apnea with 0.5mg, nausea, vomitting requriing narcan Other Reaction(s): Anaphylactic reaction, Unknown apnea with 0.5mg, nausea, vomitting requriing narcan Morphine Unknown nausea, vomitting Other Reaction(s): Anaphylactic reaction, Unknown nausea, vomitting Penicillins Unknown Other Reaction(s): Anaphylactic reaction, Unknown Outpatient Medications: Current Outpatient Medications Medication Instructions acetaminophen (TYLENOL) 650 mg, oral, Every 6 hours PRN apixaban (ELIQUIS) 5 mg, oral, 2 times daily aspirin 81 mg, oral cetirizine (ZYRTEC) 10 mg, oral, Daily cholecalciferol (VITAMIN D-3) 25 mcg, oral, Daily docusate sodium (COLACE) 100 mg, oral, 2 times daily dofetilide (TIKOSYN) 125 mcg, oral, Every 12 hours scheduled furosemide (LASIX) 20 mg, oral, Daily PRN insulin glargine,hum.rec.anlog (BASAGLAR KWIKPEN U-100 INSULIN SUBQ) 44 Units, subcutaneous, Nightly, Take as directed per insulin instructions. levETIRAcetam (KEPPRA) 750 mg, oral, 2 times daily loratadine (CLARITIN) 10 mg, oral, Daily magnesium oxide (MAG-OX) 400 mg, oral, Daily metFORMIN XR (Glucophage-XR) 500 mg 24 hr tablet 2 tablets, oral, 2 times daily with meals, Do not crush, chew, or split. metoprolol tartrate (LOPRESSOR) 25 mg, oral, 2 times daily midodrine (PROAMATINE) 5 mg, oral, 3 times daily mirtazapine (REMERON) 30 mg, oral, Nightly nitroglycerin (NITROSTAT) 0.4 mg, sublingual, Every 5 min PRN omeprazole (PRILOSEC) 20 mg, oral, Daily before breakfast polyethylene glycol (Miralax) 17 gram/dose powder Take 17 g by mouth once daily as needed. pravastatin (PRAVACHOL) 40 mg, oral, Nightly predniSONE (DELTASONE) 10 mg, oral, Daily, For 7 days Tradjenta 5 mg, oral, Daily REVIEW OF SYSTEMS Review of Systems Respiratory: Positive for shortness of breath. Skin: Positive for rash. All other systems reviewed and are negative. VITALS Vitals: 10/21/23 1207 BP: 102/54 Pulse: 58 PHYSICAL EXAM Vitals reviewed. Constitutional: Appearance: Normal and healthy appearance. Well-developed and not in distress. Eyes: Conjunctiva/sclera: Conjunctivae normal. Pupils: Pupils are equal, round, and reactive to light. Neck: Vascular: No JVR. JVD normal. Pulmonary: Effort: Pulmonary effort is normal. Breath sounds: Normal breath sounds. No wheezing. No rhonchi. No rales. Chest: Chest wall: Not tender to palpatation. Cardiovascular: PMI at left midclavicular line. Normal rate. Regular rhythm. Normal S1. Normal S2. Murmurs: There is no murmur. No gallop. No click. No rub. Pulses: Intact distal pulses. Edema: Peripheral edema absent. Abdominal: Tenderness: There is no abdominal tenderness. Musculoskeletal: Normal range of motion. General: No tenderness. Cervical back: Normal range of motion. Skin: General: Skin is warm and dry. Neurological: General: No focal deficit present. Mental Status: Alert and oriented to person, place and time. Psychiatric: Behavior: Behavior is cooperative. ASSESSMENT AND PLAN Clinical impression 1. Recurrence of syncope 2. Evidence of bradycardia during admissions at outside hospital 3. Orthostatic hypotension, on midodrine therapy with some improvement of his syncopal episode 4. History of dementia 5. History of hypertension now with episodes of hypotension 6. Diabetes mellitus 7. Normal left ventricular function per echocardiogram as described above 8. No evidence of ischemia per stress test as described above 9. Evidence of atrial fibrillation seen by loop recorder implantation 10. Tachybradycardia syndrome 11. High risk medication (dofetilide) Plan recommendations Overall patient is doing well from the electrophysiology standpoint. He is feeling much better. Maintaining sinus rhythm. Continue with dofetilide therapy. Patient will be watched very closely for possible pacemaker implantation in case he develops symptomatic or significant bradycardia. Follow my office every 3 months or sooner needed. Follow device clinic as scheduled. Continue with high risk medication. Risk factor modification and lifestyle modification discussed with patient. Diet , exercise and hydration discussed with patient. I have personally review with patient during this office visit, laboratory data, echocardiogram results, stress test results, Holter-event monitor results prior and after the last electrophysiology visit. All questions has been answered. Please excuse any errors in grammar or translation related to this dictation. Voice recognition software was utilized to prepare this document. documented in this encounter [facility] Work Phone: 10-21-2023 Instructions Palak Aleman RN - 10/21/2023 12:45 PM EST Patient to follow up in 3 months with MANDO Lord and [address] Geovani Mack MD No changes to plan today. As long as you are feeling well, we will not push for pacemaker. Continue same medications and treatments. Patient educated on proper medication use. Patient educated on risk factor modification. Please bring any lab results from other providers / physicians to your next appointment. Please bring all medicines, vitamins, and herbal supplements with you when you come to the office. Prescriptions will not be filled unless you are compliant with your follow up appointments or have a follow up appointment scheduled as per instruction of your physician. Refills should be requested at the time of your visit. I, Palak Aleman RN am scribing for and in the presence of Dr. Geovani Mack MD documented in this encounter [facility] Work Phone: 09-16-2023 History of Present illness Narrative CARDIOLOGY OFFICE VISIT CHIEF COMPLAINT Chief Complaint Patient presents with Follow-up [address] [facility] HISTORY OF PRESENT ILLNESS HPI 67-year-old male with a past medical history of coronary artery disease, reflux disease, dementia, diabetes mellitus, hypertension, hyperlipidemia and seizure disorder. Also history of diabetes mellitus. Patient had a history of atrial fibrillation for which he was on calcium channel and also beta-celsa therapy and Eliquis. Patient apparently for the last year he has been having frequent episodes of dizziness and syncope for which beta-blockers and calcium channel celsa have been decreased due to possibility of bradycardia and also he has been off Plavix and Eliquis therapy. Patient had an outside Holter monitor performed that shows sinus bradycardia with brief episodes of paroxysmal supraventricular and nonsustained ventricular tachycardia up to 6 beats of duration. Also during hospitalizations due to syncope, he was orthostatic for which recently was placed on midodrine decrease in the frequency of the syncopal episodes. An echocardiogram in December 2022 shows left ventricular ejection fraction 60 to 65% with grade 2 diastolic dysfunction. Trace tricuspid regurgitation. A stress echocardiogram in January 2023 shows no evidence of ischemia with a left ventricular ejection fraction 60 to 65%. Patient states that he lately he is feeling more tired and fatigued doing physical activities. Also he was diagnosed with bullous pemphigus for which she has been treated with steroids and antihistaminic. Pending skin biopsy in the next few days. Loop recorder has been showing episodes of atrial fibrillation with burden of atrial fibrillation up to 3.4 seconds of duration with episodes of rapid ventricular response. Current EKG shows possibility of atrial fibrillation but cannot rule out also atrial flutter atypical with 221 AV conduction rate of 112 bpm QRS 100 ms QT corrected 164 ms. Rhythm strip shows the same pattern. Past Medical History History reviewed. No pertinent past medical history. Social History Social History Tobacco Use Smoking status: Former Types: Cigarettes Quit date: 10/2022 Years since quittin.9 Smokeless tobacco: Never Substance Use Topics Alcohol use: Not Currently Drug use: Never Family History Family History Problem Relation Name Age of Onset Cancer Mother Diabetes type II Mother Other (cva) Mother Other (black lung) Father Allergies: Allergies Allergen Reactions Hydromorphone Unknown apnea with 0.5mg, nausea, vomitting requriing narcan Other Reaction(s): Anaphylactic reaction, Unknown apnea with 0.5mg, nausea, vomitting requriing narcan Morphine Unknown nausea, vomitting Other Reaction(s): Anaphylactic reaction, Unknown nausea, vomitting Penicillins Unknown Other Reaction(s): Anaphylactic reaction, Unknown Outpatient Medications: Current Outpatient Medications Medication Instructions aspirin 81 mg, oral cetirizine (ZYRTEC) 10 mg, oral, Once cholecalciferol (VITAMIN D-3) 25 mcg, oral, Daily docusate sodium (COLACE) 100 mg, oral, 2 times daily furosemide (LASIX) 20 mg, oral, Daily, As needed insulin glargine,hum.rec.anlog (BASAGLAR KWIKPEN U-100 INSULIN SUBQ) subcutaneous, Take as directed per insulin instructions. levETIRAcetam (KEPPRA) 750 mg, oral, 2 times daily magnesium oxide (MAG-OX) 400 mg, oral, Daily metFORMIN (MOD) (GLUMETZA) 1,000 mg, oral, 2 times daily with meals midodrine (PROAMATINE) 5 mg, oral, 3 times daily mirtazapine (REMERON) 30 mg, oral, Nightly nitroglycerin (NITROSTAT) 0.4 mg, sublingual, Every 5 min PRN omeprazole (PRILOSEC) 20 mg, oral, Daily before breakfast polyethylene glycol (Miralax) 17 gram/dose powder 1 (one) time each day at the same time. pravastatin (PRAVACHOL) 40 mg, oral, Nightly Tradjenta 5 mg, oral, Daily REVIEW OF SYSTEMS Review of Systems Constitutional: Positive for malaise/fatigue. VITALS Vitals: 09/16/23 1242 BP: 104/66 Pulse: (!) 112 PHYSICAL EXAM Constitutional: General: Sleeping. Appearance: Normal and healthy appearance. Well-developed and not in distress. Neck: Vascular: No JVR. JVD normal. Pulmonary: Effort: Pulmonary effort is normal. Breath sounds: Normal breath sounds. No wheezing. No rhonchi. No rales. Chest: Chest wall: Not tender to palpatation. Cardiovascular: PMI at left midclavicular line. Normal rate. Regular rhythm. Normal S1. Normal S2. Murmurs: There is no murmur. No gallop. No click. No rub. Pulses: Intact distal pulses. Edema: Peripheral edema absent. Abdominal: Tenderness: There is no abdominal tenderness. Musculoskeletal: Normal range of motion. General: No tenderness. Skin: General: Skin is warm and dry. Comments: Lesions covering chest and legs Neurological: General: No focal deficit present. Mental Status: Oriented to person, place and time. ASSESSMENT AND PLAN Clinical impression 1. Recurrence of syncope 2. Evidence of bradycardia during admissions at outside hospital 3. Orthostatic hypotension, on midodrine therapy with some improvement of his syncopal episode 4. History of dementia 5. History of hypertension now with episodes of hypotension 6. Diabetes mellitus 7. Normal left ventricular function per echocardiogram as described above 8. No evidence of ischemia per stress test as described above 9. Evidence of atrial fibrillation seen by loop recorder implantation 10. Tachybradycardia syndrome Plan recommendations I had a lengthy discussion with patient and family member regarding plan to follow for management of tachybradycardia syndrome. Now patient has diagnosis of atrial fibrillation by loop recorder. Will start Eliquis 5 mg 1 tablet twice a day. We also start Lopressor 25 mg 1 tablet twice a day. He has not had any syncopal episodes recently. Patient will be followed my office very closely in the next 4 to 6 weeks. Patient is a high risk for pacemaker implantation at this time due to significant lesions in the skin on the chest and also the abdomen due to bullous pemphigus. If patient needs a pacemaker, leadless pacemaker will be recommended for him. Risk factor modification and lifestyle modification discussed with patient. Diet , exercise and hydration discussed with patient. I have personally review with patient during this office visit, laboratory data, echocardiogram results, stress test results, Holter-event monitor results prior and after the last electrophysiology visit. All questions has been answered. Please excuse any errors in grammar or translation related to this dictation. Voice recognition software was utilized to prepare this document. documented in this encounter [facility] Work Phone: 09-16-2023 Instructions Emelia Noriega RN - 09/16/2023 12:30 PM EST Continue same medications/treatment. Patient educated on proper medication use. Patient educated on risk factor modification. Please bring any lab results from other providers/physicians to your next appointment. Please bring all medicines, vitamins, and herbal supplements with you when you come to the office. Prescriptions will not be filled unless you are compliant with your follow up appointments or have a follow up appointment scheduled as per instruction of your physician. Refills should be requested at the time of your visit. Follow up with Dr. Mack in 4-6 weeks with device check START metoprolol tartrate 25mg twice daily RESTART Eliquis 5mg BID I, EMELIA NORIEGA RN, AM SCRIBING FOR, AND IN THE PRESENCE OF DR. GEOVANI MACK MD documented in this encounter [facility] Work Phone: 04-06-2023 Note Pre-procedure Verifi cation and Time Out: Pre-Procedure Verification and Time Out: Procedure Locationprocedure area HUDDLE - Pre-procedure Verificationcompleted TIME OUT - Final Verificationcompleted immediately prior to procedure start DEBRIEFcompleted General Information: Anesthesia Critical Care: Non-Anesthesia Date/Time of Procedure: 06-Apr-2023 17:46 Indication(s)/Pre Procedure Diagnoses: Syncope Post-Procedure Diagnosis: Syncope Procedure Name: Loop recorder implantation Findings: grossly normal anatomy Procedure performed by: id Brokerage Purchase And Sale Clerk(s): none Estimated Blood Loss (mL): none Specimen: no Informed Consent: written consent obtained Procedure Details: Procedure Details: Event Recorder Implantation Summary: Successful implantation of a implantable event recorder. Recommendations: 1.The patient should continue with the present medications. Discharge: 1.The patient left the EP laboratory in stable condition. Follow up: 1.The patient will be discharged on the day of the procedure, following bed rest and subsequent ambulation, provided the recovery parameters are appropriate. The patient should be alert for bleeding, swelling, or signs of infection. The patient should call the sheet metal supervisor immediately if symptoms recur, or for any problems. The patient has been instructed accordingly. Procedures: Pocket fashioned. Insertion implantable event recorder. Device reprogramming. Patient history: Please refer to the detailed history and physical on the patient's medical chart. Recurrence of syncope. Patient is a scheduled for loop recorder implantation Procedure narrative: The risks, benefits, and alternatives to the procedure and sedation were explained to the patient, and informed consent was obtained. The patient was in the fasting state. A grounding pad was placed. Self-adhesive anterior-posterior defibrillation pads were applied. A defibrillator was used for monitoring and the defibrillator waveform was set to biphasic. The patient was set up for continuous monitoring of surface 12 lead ECG and pulse oximetry. Blood pressure was monitored. The procedure was performed under IV conscious sedation. The upper chest was prepped and draped in the usual sterile fashion. Local anesthesia: Lidocaine 1 %. 1.An incision was made in the parasternal area in the fourth and fifth intercostal space. 2.An implantable event recorder was inserted into the pocket and excellent intracardiac recordings were obtained. 3.The skin was approximated with Dermabond and steri-strips. A pressure dressing was applied. 4.The device was programmed to automatically detect heart rates below 40 beats per minute and above 180 beats per minute. The patient was transferred to the telemetry unit. Complications: The patient tolerated the procedure without any complications or incident. Prepared and signed by Please see laboratory for model answer number of the loop recorder and final settings ([employer] Linq 2 MRI compatible [id number]) Tolerance: good Complications: None Attestation: Note Completion: Attending AttestationI performed the procedure without a resident Electronic Signatures: Geovani Mack) (Signed 06-Apr-2023 17:47) Authored: Pre-procedure Verification and Time Out, General Information, Procedure Details, Note Completion Last Updated: 06-Apr-2023 17:47 by Geovani Mack) [facility] 04-06-2023 Note History & Physical R eviewed: I have reviewed the History and Physical dated: 24-Mar-2023 History and Physical reviewed and relevant findings noted. Patient examined to review pertinent physical findings.: No significant changes Home Medications Reviewed: no changes noted Allergies Reviewed: no changes noted Airway/Sedation Assessment: Mouth Opening OKyes Neck Flexibility OKyes Loose Teethno Oropharyngeal ClassificationClass II ERAS (Enhanced Recovery After Surgery): ERAS Patient: no Consent: COVID-19 Consent: COVID-19 Risk ConsentSurgeon has reviewed anderson risks related to the risk of cesar COVID-19 and if they contract COVID-19 what the risks are. Electronic Signatures: Geovani Mack) (Signed 06-Apr-2023 17:46) Authored: History & Physical Reviewed, Airway/Sedation, ERAS, Consent, Note Completion Last Updated: 06-Apr-2023 17:46 by Geovani Mack) [facility] 04-06-2023 History and physical note History & Physical Reviewed: I have reviewed the History and Physical dated: 24-Mar-2023 History and Physical reviewed and relevant findings noted. Patient examined to review pertinent physical findings.: No significant changes Home Medications Reviewed: no changes noted Allergies Reviewed: no changes noted Airway/Sedation Assessment: Mouth Opening OK yes Neck Flexibility OK yes Loose Teeth no Oropharyngeal Classification Class II ERAS (Enhanced Recovery After Surgery): ERAS Patient: no Consent: COVID-19 Consent: COVID-19 Risk Consent Surgeon has reviewed anderson risks related to the risk of cesar COVID-19 and if they contract COVID-19 what the risks are. Electronic Signatures: Geovani Mack) (Signed 06-Apr-2023 17:46) Authored: History & Physical Reviewed, Airway/Sedation, ERAS, Consent, Note Completion Last Updated: 06-Apr-2023 17:46 by Geovain Mack) [facility] Work Phone: 04-06-2023 History and physical note History & Physical Reviewed: I have reviewed the History and Physical dated: 24-Mar-2023 History and Physical reviewed and relevant findings noted. Patient examined to review pertinent physical findings.: No significant changes Home Medications Reviewed: no changes noted Allergies Reviewed: no changes noted Airway/Sedation Assessment: Mouth Opening OK yes Neck Flexibility OK yes Loose Teeth no Oropharyngeal Classification Class II ERAS (Enhanced Recovery After Surgery): ERAS Patient: no Consent: COVID-19 Consent: COVID-19 Risk Consent Surgeon has reviewed anderson risks related to the risk of cesar COVID-19 and if they contract COVID-19 what the risks are. Electronic Signatures: Geovani Mack) (Signed 06-Apr-2023 17:46) Authored: History & Physical Reviewed, Airway/Sedation, ERAS, Consent, Note Completion Last Updated: 06-Apr-2023 17:46 by Geovani Mcak) documented in this encounter [facility] Work Phone: 02-14-2023 Note Monty Lockwood [facility] Comment on above: Result Comment: Elec tronically Signed By: Eboni LEMONS, John White\.br\Date and Time Signed: 02/14/23 12:47 EDT 02-14-2023 Evaluation + Plan note Extrac cecille from: Title:Discharge Note Author:John Lyn MD Date:02/14/23 Discharged to - Extended care facility Discharge Diet(s): Calorie Controlled- 1800 Calorie Diet (02/13/23 10:44:00) Prescriptions aspirin 81 mg Oral EC Tab, 81 mg= 1 tab(s), Oral, Daily cholecalciferol 1000 intl units (25 mcg) oral tablet, 25 mcg= 1 tab(s), Oral, Daily magnesium oxide 400 mg Tab, 400 mg= 1 tab(s), Oral, Daily metformin 1000 mg oral tablet, extended release, 1000 mg= 1 tab(s), Oral, BID midodrine 5 mg Tab, 5 mg= 1 tab(s), Oral, BID Home acetaminophen 325 mg Tab, 650 mg= 2 tab(s), Oral, q6hr, PRN furosemide 20 mg Tab, 20 mg= 1 tab(s), Oral, Daily, PRN levETIRAcetam 750 mg oral tablet, dispersible, 750 mg= 1 tab(s), Oral, BID loratadine 10 mg Tab, 10 mg= 1 tab(s), Oral, Daily, PRN omeprazole 20 mg Cap-DR, 20 mg= 1 cap(s), Oral, Daily pravastatin 40 mg Tab, 40 mg= 1 tab(s), Oral, Once a day (at bedtime) Trulicity Pen 0.75 mg/0.5 mL subcutaneous solution, 0.75 mg, SubCutaneous, Thursday With When Contact Information Mahesh Lema MD Within 2 weeks [address] [place] [address]- [phone] Additional Instructions: HERMILO THORNE MD Within 2 to 4 days [address] [place] [address]- Additional Instructions: Extracted from: Title:Consult Note Author:Mahesh Lema MD Da te:02/13/23 1. Syncope (R55: Syncope and collapse) Patient had what appeared to be a positional bradycardic induced syncopal episode, possibly due to short acting Cardizem therapy, bedbound status for most of the time, as well as possibly donepezil. Patient is no longer on anticoagulation and is currently in sinus bradycardia. Would recommend discontinuation of his Cardizem altogether as well as Aricept as this may promote bradycardia as well. Patient had a dobutamine echocardiogram during his most recent admission which demonstrated chronotropic competence, so I do not believe the patient requires pacemaker at this time. Patient most likely require assistance getting in and out of bed as he may develop orthostatic hypotension. Would recommend discontinuation of his Plavix given his frequent falls and possible head trauma. Patient may continue baby aspirin. He will continue cosyntropin for blood pressure support. Consideration we will be made for discontinuation of his Lasix. Thank you very much for the opportunity to participate in the cardiac care of your patient. Consultation time took place between 1045 and 11:15 AM. 2. Seizure (R56.9: Unspecified convulsions) 3. Diabetes (E11.9: Type 2 diabetes mellitus without complications) 4. CAD in [place] artery (I25.10: Atherosclerotic heart disease of [place] coronary artery without angina pectoris) 5. A-fib (I48.91: Unspecified atrial fibrillation) 6. Diastolic heart failure (I50.30: Unspecified diastolic (congestive) heart failure) 7. Hypertension (I10: Essential (primary) hypertension) 8. Hyperlipidemia (E78.5: Hyperlipidemia, unspecified) 9. Dementia (F03.90: Unspecified dementia, unspecified severity, without behavioral disturbance, psychotic disturbance, mood disturbance, and anxiety) 10. Chronic GERD (K21.9: Gastro-esophageal reflux disease without esophagitis) 11. Obesity (E66.9: Obesity, unspecified) 12. Chronic anemia (D64.9: Anemia, unspecified) 13. Peripheral neuropathy (G62.9: Polyneuropathy, unspecified) Addendum by Torey LEMONS, Dick Johns on February 13, 2023 11:13:15 EDT If the patient is found to be orthostatic despite discontinuation of his donepezil and Cardizem, he may benefit from midodrine therapy to assist with cerebral perfusion. Extracted from: Title:Admission H & P Author:Eboni LEMONS, John White Date:02/13/23 67-year-old male with past m edical history of dementia, atrial fibrillation, suspected seizures from previous unresponsive episode on Keppra, CAD s/p stents on Plavix (received stents in [place] around 10 years ago per patient), chronic diastolic heart failure, hypertension, hyperlipidemia, chronic GERD, obesity, chronic anemia [facility]. Syncope/unresponsiveness Bradycardia Frequent episodes of syncope Recent EEG, 3D video EEG dobutamine stress echocardiogram, MRI brain, MRA head, carotid ultrasound unremarkable. Recently Coreg was switched to Cardizem Gabapentin recently discontinued CBC, BMP, LFTs, ammonia, troponin trend, U tox, ethanol level, UA, chest x-ray, CT head unremarkable. ECG with heart rate 40s. Heart rate 40 50s on telemetry Hold donepezil, diltiazem for now due to bradycardia Concerns being on Plavix given frequent falls Check orthostatics Cortisol level around 9.4 in 01/2023. Cosyntropin stim test ordered today Telemetry Consult cardiology Diabetes HbA1c 8.0 12/2022. On dulaglutide, metformin 1000 mg twice daily. Lantus discontinued in 12/25 Inpatient: SSI, metformin CAD Status post stents include around 10 years ago On aspirin, Plavix, pravastatin Atrial fibrillation On diltiazem. Recently discontinued Eliquis due to frequent falls Hypertension Chronic diastolic heart failure Echocardiogram 12/22/2022 with grade 2 diastolic dysfunction, EF 60 to 65%, trace TR Dobutamine stress echocardiogram unremarkable recently On diltiazem, furosemide prn Chronic anemia Hemoglobin stable Hyperlipidemia On pravastatin Diabetic neuropathy Gabapentin discontinued on last admission Dementia Chronic Chronic GERD On omeprazole Obesity BMI around 28. Lifestyle modifications Diet: diabetic Code: DNR CCA DNI. Discussed with the patient. Advance directives in [place] as well DVT prophylaxis: heparin This report was transcribed using voice recognition software. Every effort was made to ensure accuracy, however, inadvertently computerized bridge painter helper mistakes may be present. Extracted from: Title:ED Note Author:Jalen Danielle MD Date: 1. Unresponsive episode (R41 .89: Other symptoms and signs involving cognitive functions and awareness) Orders: naloxone, 2 mg = 2 mL, Injection, IV Push, Once, Stop date 02/13/23 0:43:00 EDT, STAT, Start date 02/13/23 0:43:00 EDT, 02/13/23 0:43:00 EDT Sodium Chloride 0.9% intravenous solution, 500 mL, Soln-IV, IV, Once, Stop date 02/13/23 0:43:00 EDT, STAT, Start date 02/13/23 0:43:00 EDT, 500 mL/hr, Infuse over 1, hour(s) Sodium Chloride 0.9% intravenous solution, 1,000 mL, Soln-IV, IV, Once, Stop date 02/13/23 1:52:00 EDT, STAT, Start date 02/13/23 1:52:00 EDT, Infuse over 61, minute(s) Ammonia Level Automated Diff Basic Metabolic Panel Blood Gas Art, with Lytes, Gluc, Lact CBC w/ Auto Diff Continuous Pulse Oximetry CT Head or Brain w/o Contrast Drug Screen Urine ED Cardiac Monitoring ED Physician consult Hospitalist for continued care eGFR Ethanol Level Hepatic Function Panel PT & PTT Routine Capillary Glucose POC Troponin 0 Hr. UA With Cult Reflex XR Chest Single View Future Appointments Appointment Date:03/26/2023 10:15:00 AM Scheduled Provider:Zia LEMONS, Jaja Dash Location[facility] Appointment Type:Cardiology Follow Up (FT) [facility]05-12-2023 [facility]Henry [facility] HospitalComment on above:Result Comment: Electronically Signed By: John Lyn MD\.br\Date and Time Signed: 02/13/23 12:34 [id number] Hospital Discharge instructions Follow Up Care 02/13/2023 00:22:57 With:Mahesh Lema MD Address: [address] [place] [phone] When:2 weeks With:HERMILO THORNE MD Address: [address] [place] [id number] When:2 to [address] [facility]04-30-2023 [facility]Result Comment: Electronically Signed By: Stephan QUINN MD\.br\Date and Time Signed: 02/01/23 10:52 [id number] Evaluation + Plan noteExtracted from: Title:Discharge Note Author:Stephan QUINN MD Date: 4/24/23 Discharge To, Anticipated II - Intermediate Care/ECF Discharged to - halfway unit Transported by, Anticipated - Family Discharge Diet(s): Calorie Controlled- 1800 Calorie Diet (01/26/23 10:29:00) Prescriptions aspirin 81 mg Oral EC Tab, 81 mg= 1 tab(s), Oral, Daily Cardizem 60 mg Tab, 30 mg= 0.5 tab(s), Oral, BID cholecalciferol 1000 intl units (25 mcg) oral tablet, 25 mcg= 1 tab(s), Oral, Daily magnesium oxide 400 mg Tab, 400 mg= 1 tab(s), Oral, Daily metformin 1000 mg oral tablet, extended release, 1000 mg= 1 tab(s), Oral, BID Home acetaminophen 325 mg Tab, 650 mg= 2 tab(s), Oral, q6hr, PRN clopidogrel 75 mg Tab, 75 mg= 1 tab(s), Oral, Daily furosemide 20 mg Tab, 20 mg= 1 tab(s), Oral, Daily insulin lispro, 0-10 Units, SubCutaneous, QIDACHS Keppra 250 mg Tab, 750 mg= 3 tab(s), Oral, BID loratadine, 10 mg, Oral, Daily, PRN omeprazole 20 mg Cap-DR, 20 mg= 1 cap(s), Oral, Daily pravastatin 40 mg Tab, 40 mg= 1 tab(s), Oral, Once a day (at bedtime) Trulicity Pen 0.75 mg/0.5 mL subcutaneous solution, 0.75 mg, SubCutaneous, qWeek With When Contact Information Mahesh Lema Within 1 to 2 weeks [address] [place] [phone] Business (1) Additional Instructions: HERMILO THORNE Within 3 to 5 days [address] [place] [address]- Business (1) Additional Instructions: Lg LEMONS, KAREN Hernandez Within 2 to 4 weeks [facility] [address] [place] [address]- Additional Instructions: Extracted from: Title:APSO Note- Neurology Author:Marycarmen Chávez RN Date:01/26/23 The patient is a 67-year-old male with history of dementia, coronary artery disease, hypercholesterolemia, diabetes mellitus, and recurrent episodes of loss of consciousness who was admitted with episode loss of consciousness manifested as abrupt loss of consciousness with out warning. Possible etiologies include cerebral hypoperfusion and intracranial or extracranial cerebral artery stenosis, dysautonomia, or a cardiovascular etiology contributing to cerebral hypoperfusion. I cannot completely exclude new onset seizure contributing to the patient's loss of consciousness given the provided history. The patient has been evaluated and admitted several times in the past for similar episodes patient may have a component of medication side effects and dehydration contributing to orthostatic hypotension which contributed to his clinical episode. I have reviewed the patient's previous hospitalizations and evaluation. The daughter provides an interval history that the patient has had lightheadedness for several years but has had episodes of loss of consciousness over the past 4- 6 weeks which are new. He has had at least 5 of these that she knows of. The patient has not had any episodes over the past 24 hours. I had a long discussion with the patient and his daughter regarding his evaluation and symptoms. Patient's symptoms have occurred more with position change and may be related to intermittent dysautonomia. I recommend disontinuing continuous video EEG monitoring to assess for underlying epileptiform activity which may be contributing to his patient's symptoms. I recommend continuing Keppra for now The patient should be continued on telemetry to assess for cardiac arrhythmia. I recommend the patient have a tilt table test as an outpatient to assess for dysautonomia contributing to recurrent episodes of loss of consciousness I counseled the patient and his daughter at length on the possible diagnosis, prognosis, evaluation, and treatment options. I answered all questions. They stated understanding. I discussed the case with the hospitalist Dr. Quinn 1. Syncope (R55: Syncope and collapse) 2. A-fib (I48.91: Unspecified atrial fibrillation) 3. CAD in [place] artery (I25.10: Atherosclerotic heart disease of [place] coronary artery without angina pectoris) 4. Dementia (F03.90: Unspecified dementia, unspecified severity, without behavioral disturbance, psychotic disturbance, mood disturbance, and anxiety) 5. Peripheral neuropathy (G62.9: Polyneuropathy, unspecified) 6. Obesity (E66.9: Obesity, unspecified) 7. Type 2 diabetes mellitus (E11.9: Type 2 diabetes mellitus without complications) 8. Chronic GERD (K21.9: Gastro-esophageal reflux disease without esophagitis) 9. Chronic anemia (D64.9: Anemia, unspecified) 10. Hypertension (I10: Essential (primary) hypertension) 11. Hyperlipidemia (E78.5: Hyperlipidemia, unspecified) Extracted from: Title:APSO Note-neurology Author:Dinesh Rudd RN Date:01/25/23 The patient is a 67-year-old male with history of dementia, coronary artery disease, hypercholesterolemia, diabetes mellitus, and recurrent episodes of loss of consciousness who was admitted with episode loss of consciousness manifested as abrupt loss of consciousness with out warning. Possible etiologies include cerebral hypoperfusion and intracranial or extracranial cerebral artery stenosis, dysautonomia, or a cardiovascular etiology contributing to cerebral hypoperfusion. I cannot completely exclude new onset seizure contributing to the patient's loss of consciousness given the provided history. The patient has been evaluated and admitted several times in the past for similar episodes patient may have a component of medication side effects and dehydration contributing to orthostatic hypotension which contributed to his clinical episode. I have reviewed the patient's previous hospitalizations and evaluation. The daughter provides an interval history that the patient has had lightheadedness for several years but has had episodes of loss of consciousness over the past 4- 6 weeks which are new. He has had at least 5 of these that she knows of. The patient has not had any episodes over the past 24 hours. I recommend Continuing continuous video EEG monitoring to assess for underlying epileptiform activity which may be contributing to his patient's symptoms. I recommend continuing Keppra for now The patient should be continued on telemetry to assess for cardiac arrhythmia. I counseled the patient and his daughter at length on the possible diagnosis, prognosis, evaluation, and treatment options. I answered all questions. They stated understanding. I discussed the case with the hospitalist Dr. Lyn 1. Syncope (R55: Syncope and collapse) 2. A-fib (I48.91: Unspecified atrial fibrillation) 3. CAD in [place] artery (I25.10: Atherosclerotic heart disease of [place] coronary artery without angina pectoris) 4. Dementia (F03.90: Unspecified dementia, unspecified severity, without behavioral disturbance, psychotic disturbance, mood disturbance, and anxiety) 5. Peripheral neuropathy (G62.9: Polyneuropathy, unspecified) 6. Obesity (E66.9: Obesity, unspecified) 7. Type 2 diabetes mellitus (E11.9: Type 2 diabetes mellitus without complications) 8. Chronic GERD (K21.9: Gastro-esophageal reflux disease without esophagitis) 9. Chronic anemia (D64.9: Anemia, unspecified) 10. Hypertension (I10: Essential (primary) hypertension) 11. Hyperlipidemia (E78.5: Hyperlipidemia, unspecified) Extracted from: Title:APSO Note-neurology Author:Tobin GONZALEZ Dinesh ole Date:01/24/23 The patient is a 67-year-old male with history of dementia, coronary artery disease, hypercholesterolemia, diabetes mellitus, and recurrent episodes of loss of consciousness who was admitted with episode loss of consciousness manifested as abrupt loss of consciousness with out warning. Possible etiologies include cerebral hypoperfusion and intracranial or extracranial cerebral artery stenosis, dysautonomia, or a cardiovascular etiology contributing to cerebral hypoperfusion. I cannot completely exclude new onset seizure contributing to the patient's loss of consciousness given the provided history. The patient has been evaluated and admitted several times in the past for similar episodes patient may have a component of medication side effects and dehydration contributing to orthostatic hypotension which contributed to his clinical episode. I have reviewed the patient's previous hospitalizations and evaluation. The patient has not had any episodes over the past 24 hours. I recommend Continuing continuous video EEG monitoring to assess for underlying epileptiform activity which may be contributing to his patient's symptoms. I recommend continuing Keppra for now The patient should be continued on telemetry to assess for cardiac arrhythmia. I discussed the case with the hospitalist 1. Syncope (R55: Syncope and collapse) 2. A-fib (I48.91: Unspecified atrial fibrillation) 3. CAD in [place] artery (I25.10: Atherosclerotic heart disease of [place] coronary artery without angina pectoris) 4. Dementia (F03.90: Unspecified dementia, unspecified severity, without behavioral disturbance, psychotic disturbance, mood disturbance, and anxiety) 5. Peripheral neuropathy (G62.9: Polyneuropathy, unspecified) 6. Obesity (E66.9: Obesity, unspecified) 7. Type 2 diabetes mellitus (E11.9: Type 2 diabetes mellitus without complications) 8. Chronic GERD (K21.9: Gastro-esophageal reflux disease without esophagitis) 9. Chronic anemia (D64.9: Anemia, unspecified) 10. Hypertension (I10: Essential (primary) hypertension) 11. Hyperlipidemia (E78.5: Hyperlipidemia, unspecified) Extracted from: Title:Consult Note-neurology Author:James Rudd RN ichole Date:01/23/23 The patient is a 67-year-old male with history of dementia, coronary artery disease, hypercholesterolemia, diabetes mellitus, and recurrent episodes of loss of consciousness who was admitted with episode loss of consciousness manifested as abrupt loss of consciousness with out warning. Possible etiologies include cerebral hypoperfusion and intracranial or extracranial cerebral artery stenosis, dysautonomia, or a cardiovascular etiology contributing to cerebral hypoperfusion. I cannot completely exclude new onset seizure contributing to the patient's loss of consciousness given the provided history. The patient has been evaluated and admitted several times in the past for similar episodes patient may have a component of medication side effects and dehydration contributing to orthostatic hypotension which contributed to his clinical episode. I have reviewed the patient's previous hospitalizations and evaluation. I recommend obtaining continuous video EEG monitoring to assess for underlying epileptiform activity which may be contributing to his patient's symptoms. The patient should be continued on telemetry to assess for cardiac arrhythmia. I discussed the case with the hospitalist Dr. Lyn 1. Syncope (R55: Syncope and collapse) 2. A-fib (I48.91: Unspecified atrial fibrillation) 3. CAD in [place] artery (I25.10: Atherosclerotic heart disease of [place] coronary artery without angina pectoris) 4. Dementia (F03.90: Unspecified dementia, unspecified severity, without behavioral disturbance, psychotic disturbance, mood disturbance, and anxiety) 5. Peripheral neuropathy (G62.9: Polyneuropathy, unspecified) 6. Obesity (E66.9: Obesity, unspecified) 7. Type 2 diabetes mellitus (E11.9: Type 2 diabetes mellitus without complications) 8. Chronic GERD (K21.9: Gastro-esophageal reflux disease without esophagitis) 9. Chronic anemia (D64.9: Anemia, unspecified) 10. Hypertension (I10: Essential (primary) hypertension) 11. Hyperlipidemia (E78.5: Hyperlipidemia, unspecified) Extracted from: Title:Admission H & P Author:John Lyn MD Date:01/22/23 67-year-old male with past m edical history of dementia, atrial fibrillation, suspected seizures from previous unresponsive episode on Keppra, CAD s/p stents on Plavix (received stents in [place] around 10 years ago per patient), chronic diastolic heart failure, hypertension, hyperlipidemia, chronic GERD, obesity, chronic anemia [facility]. Syncope Concerns for seizures given history from [facility] Patient mentioned he has chronic syncope for years. Multiple episodes with 3 admissions recently Recent EEG, dobutamine stress echocardiogram, MRI brain, MRA head, carotid ultrasound unremarkable. Telemetry unremarkable on last admission. Recently Coreg was switched to Cardizem ECG, chest x-ray, CBC, BMP, troponin trend unremarkable Telemetry I discussed case with neurology today. Patient will be started on 3-day video EEG tomorrow Discontinue gabapentin On Keppra Diabetes On SSI, dulaglutide. Glargine 35 units discontinued on last admission Inpatient: SSI CAD Status post stents include around 10 years ago On aspirin, Plavix, pravastatin Atrial fibrillation On diltiazem. Recently discontinued Eliquis due to frequent falls Hypertension Chronic diastolic heart failure Echocardiogram 12/22/2022 with grade 2 diastolic dysfunction, EF 60 to 65%, trace TR Dobutamine stress echocardiogram unremarkable recently On diltiazem, furosemide Chronic anemia Hemoglobin stable Hyperlipidemia On pravastatin Diabetic neuropathy On gabapentin Dementia Chronic Chronic GERD On omeprazole Obesity BMI around 29. Lifestyle modifications Diet: diabetic Code: Full code DVT prophylaxis: heparin This report was transcribed using voice recognition software. Every effort was made to ensure accuracy, however, inadvertently computerized bridge painter helper mistakes may be present. Dr. John Lyn Hospitalist Addendum by Eboni LEMONS, Lucinda Christopher on January 23, 2023 10:25:32 EDT Patient is requiring more than 2 midnight stay, changed to inpatient status. Patient will be receiving 3 days of video EEG Extracted from: Title:ED Note Author:Vivek Wilder DO Date :01/22/23 Syncope (R55: Syncope and co llapse) Orders: Automated Diff Basic Metabolic Panel CBC w/ Auto Diff ECG 12 Lead Adult ED Cardiac Monitoring ED Physician consult Hospitalist for continued care eGFR Oxygen Saturation Oxygen Therapy PT & PTT Saline Lock Insert Troponin 0 Hr. Troponin 3 Hr. Troponin 6 Hr. Troponin 9 Hr. XR Chest Single View Future Appointments Appointment Date:02/11/2023 11:00:00 AM Scheduled Provider:Bushra JIMENEZ CNP [facility]Cardiology Inpatient Follow Up (FT) Appointment Date:04/02/2023 11:00:00 AM Scheduled Provider:Starr Oneal DO Location:[facility] Appointment Type:Cardiology Follow Up (FT) Diagnostic Tests Pending * Cortisol 01/26/[address] [facility]04-21-2023 [facility]Result Comment: Electronically Signed By: John Lyn MD\.br\Date and Time Signed: 01/23/23 10:25 [id number] NoteAttempted PT Evaluation. Spoke to nursing who requested to Hold this date. [facility] Discharge instructions Follow Up Care 01/22/2023 00:29:48 With:Mahesh Lema Address: [address] [place] [phone] Business (1) When:1 to 2 weeks With:HERMILO THORNE Address: [address] [place] [address] Business (1) When:3 to 5 days With:Lilia Castanon MD, NEU Address: [facility] [address] [place] [address] When:2 to [address] [facility]04-18-2023 [facility]:Result Comment: Electronically Signed By: John Lyn MD\.br\Date and Time Signed: 01/20/23 14:29 [id number] [facility] Comment on above:Result Comment: Electronically Signed By: Ayaan NAQVI MD\.br\Date and Time Signed: 01/17/23 17:06 [id number] [facility] CampusComment on above:Result Comment: Electronically Signed By: Kelly SPRINGER\.br\Date and Time Signed: 12/25/22 12:38 EDT\.br\Electronically Co-Signed By: Mitchel MEDINA MD\.br\Date and Time Co-Signed: 12/26/22 10:44 EDT 12-25-2022 Hospital Discharge instructions Patient Education 12/25/2022 12:28:46 Syncope, Ulxg-zp-Ofkw Syncope Syncope is when you pass out (faint) for a short time. It is caused by a sudden decrease in blood flow to the brain. Signs that you may be about to pass out include: Feeling dizzy or light-headed. Feeling sick to your stomach (nauseous). Seeing all white or all black. Having cold, clammy skin. If you pass out, get help right away. Call your local emergency services (911 in the [place] Do not drive yourself to the hospital. Follow these instructions at home: Watch for any changes in your symptoms. Take these actions to stay safe and help with your symptoms: Lifestyle Do not drive, use machinery, or play sports until your doctor says it is okay. Do not drink alcohol. Do not use any products that contain nicotine or tobacco, such as cigarettes and e-cigarettes. If you need help quitting, ask your doctor. Drink enough fluid to keep your pee (urine) pale yellow. General instructions Take qhjv-srh-dhebxch and prescription medicines only as told by your doctor. If you are taking blood pressure or heart medicine, sit up and stand up slowly. Spend a few minutesgetting ready to sit and then stand. This can help you feel less dizzy. Have someone stay with you until you feel stable. If you start to feel like you might pass out, lie down right away and raise (elevate) your feet above the level of your heart. Breathe deeply and steadily. Wait until all of the symptoms are gone. Keep all follow-up visits as told by your doctor. This is important. Get help right away if: You have a very bad headache. You pass out once or more than once. You have pain in your chest, belly, or back. You have a very fast or uneven heartbeat (palpitations). It hurts to breathe. You are bleeding from your mouth or your bottom (rectum). You have black or tarry poop (stool). You have jerky movements that you cannot control (seizure). You are confused. You have trouble walking. You are very weak. You have vision problems. These symptoms may be an emergency. Do not wait to see if the symptoms will go away. Get medical help right away. Call your local emergency services (911 in the [place] Do not drive yourself to the hospital. Summary Syncope is when you pass out (faint) for a short time. It is caused by a sudden decrease in blood flow to the brain. Signs that you may be about to faint include feeling dizzy, light-headed, or sick to your stomach, seeing all white or all black, or having cold, clammy skin. If you start to feel like you might pass out, lie down right away and raise (elevate) your feet above the level of your heart. Breathe deeply and steadily. Wait until all of the symptoms are gone. This information is not intended to replace advice given to you by your health care provider. Make sure you discuss any questions you have with your health care provider. Document Released: 03/09/2009 Document Revised: 11/03/2018 Document Reviewed: 11/03/2018 [employer] Patient Education 2020 [employer]. Follow Up Care 12/20/2022 23:06:47 With:Call [phone] to schedule 30 event monitro placement. Address:Unknown When: Unknown With:Bushra JIMENEZ Address: [address] [place] [address]- [phone] Business (1) When:5 to 7 days With:HERMILO THORNE Address: [address] [place] [address]- Business (1) When:2 to 4 days With:Lilia Castanon MD, [facility] Address: [facility] [address] [place] [address]- When:2 to [address] [facility]03-22-2023 Evaluation + Plan noteExtracted from: Title:Progress/SOAP Note Author:Tiff JIMENEZ CNP Date:12/24/22 1. Unresponsive episode (R41 .89: Other symptoms and signs involving cognitive functions and awareness) 1. Unspecified atrial fibrillation, (I48.91: Unspecified atrial fibrillation)Atrial fibrillation with slow ventricular response Given history of atrial fibrillation, he should be anticoagulated given his high [id number] score. However, if he continues to have falls the risks versus benefits of medication should be considered. It appears he will be going to some type of assisted living/SNF so the hope is he will be closely monitored for falls. Reviewing prior EKGs, the past 2 days he has been in a normal sinus rhythm. His heart rate is normal. He can continue his beta-celsa at lower dose, there is no indication for pacemaker evaluation. We will order event monitor on discharge. 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 3. History of seizures (Z87.898: Personal history of other specified conditions) 4. Coronary artery disease (I25.10: Atherosclerotic heart disease of [place] coronary artery without angina pectoris) 5. Hypertension (I10: Essential (primary) hypertension) 6. Hyperlipidemia (E78.5: Hyperlipidemia, unspecified) 7. Diabetes (E11.9: Type 2 diabetes mellitus without complications) 8. History of CHF (congestive heart failure) (Z86.79: Personal history of other diseases of the circulatory system) 9. Renal insufficiency (N28.9: Disorder of kidney and ureter, unspecified) 10. Anemia (D64.9: Anemia, unspecified) 11. Peripheral neuropathy (G62.9: Polyneuropathy, unspecified) 12. Chronic GERD (K21.9: Gastro-esophageal reflux disease without esophagitis) 13. Dementia (F03.90: Unspecified dementia, unspecified severity, without behavioral disturbance, psychotic disturbance, mood disturbance, and anxiety) 14. History of COVID-19 (Z86.16: Personal history of COVID-19) 15. Humeral fracture (S42.309A: Unspecified fracture of shaft of humerus, unspecified arm, initial encounter for closed fracture) 16. Obesity (E66.9: Obesity, unspecified) Patient is seen and examined with Dr. Lee. Extracted from: Title:APSO Note Author:Brandan BANEGAS Date:12/24/22 1. Unresponsive episode (R41 .89: Other symptoms and signs involving cognitive functions and awareness) Routine EEG this admission normal MRI with no acute changes, MRA head unremarkable, MRA neck could not be performed due to patient participation Keppra has been increased to 750 twice daily Carotid ultrasounds no flow limiting stenosis. Telemetry 2. Atrial fibrillation with slow ventricular response (I48.91: Unspecified atrial fibrillation) EKG on admission atrial fibrillation with a junctional escape rhythm in the 50s Troponin levels negative Decrease Coreg to 3.125 twice daily Hold apixaban , discontinue donepezil , Telemetry shows junctional rhythm may need consultation with Dr. Cedeno for pacemaker placement Dr.Christofferson to see today in re: Eliquis/Plavix and ?pacer or not. 12 lead pending this AM Follow-up cardiac echo shows EF 60% Obtain medication records-from [facility] pending. 3. History of seizures (Z87.898: Personal history of other specified conditions) Place on seizure precautions. Keppra 750 twice daily Will obtain records from his recent hospitalization at [facility] to determine prior work-up and further past medical history. EEG normal. 4. Cor onary artery disease (I25.10: Atherosclerotic heart disease of [place] coronary artery without angina pectoris) Patient did have an abnormal EKG with interventricular conduction delay, Troponin negative Clopidogrel still on hold as above Obtain medical records Telemetry 5. Hypertension (I10: Essential (primary) hypertension) Stable 6. Hyperlipidemia (E78.5: Hyperlipidemia, unspecified) on pravastatin await confirmation of meds 7. Diabetes (E11.9: Type 2 diabetes mellitus without complications) Cover with Humalog sliding scale A1C 8.0 8. History of CHF (congestive heart failure) (Z86.79: Personal history of other diseases of the circulatory system) Not in acute exacerbation , obtain medical records from his last hospitalization 9. Renal insufficiency (N28.9: Disorder of kidney and ureter, unspecified) . Avoid nephrotoxins 10. Anemia (D64.9: Anemia, unspecified) Stable 11. Peripheral neuropathy (G62.9: Polyneuropathy, unspecified) gabapentin 12. Chronic GERD (K21.9: Gastro-esophageal reflux disease without esophagitis) Await confirmation of PPI 13. Dementia (F03.90: Unspecified dementia, unspecified severity, without behavioral disturbance, psychotic disturbance, mood disturbance, and anxiety) 14. History of COVID-19 (Z86.16: Personal history of COVID-19) 15. Humeral fracture (S42.309A: Unspecified fracture of shaft of humerus, unspecified arm, initial encounter for closed fracture) This was found incidentally as part of the trauma work-up which patient was seen by trauma surgeon. He was described as subtle cortical fracture associated with the intraosseous muscle needle which has since been removed 16. Obesity (E66.9: Obesity, unspecified) Lifestyle defecation outpatient follow-up Extracted from: Title:APSO Note Author:Lorelei LEMONS, Abeer Date: 1. Unresponsive episode (R41 .89: Other symptoms and signs involving cognitive functions and awareness) Routine EEG this admission normal MRI with no acute changes, MRA head unremarkable, MRA neck could not be performed due to patient participation Keppra has been increased to 750 twice daily Carotid ultrasounds on telemetry 2. Atrial fibrillation with slow ventricular response (I48.91: Unspecified atrial fibrillation) EKG on admission atrial fibrillation with a junctional escape rhythm in the 50s Troponins negative Was seen by supervisor sawing and assembly who recommended to decrease Coreg to 3.125 twice daily , and to continue to hold apixaban , to discontinue donepezil , and to follow-up repeated EKG and if he continued to be a junctional rhythm he might need consultation with Dr. Cedeno for pacemaker placement TSH normal, Follow-up cardiac echo Observe on telemetry Obtain medication records 3. History of seizures (Z87.898: Personal history of other specified conditions) Place on seizure precautions. Keppra 750 twice daily Will obtain records from his recent hospitalization at [facility] to determine prior work-up and further past medical history. EEG 4. Coronary artery disease (I25.10: Atherosclerotic heart disease of [place] coronary artery without angina pectoris) Patient did have an abnormal EKG with interventricular conduction delay, Troponin negative Clopidogrel still on hold as above Obtain medical records Telemetry 5. Hypertension (I10: Essential (primary) hypertension) Stable 6. Hyperlipidemia (E78.5: Hyperlipidemia, unspecified) on pravastatin await confirmation of meds 7. Diabetes (E11.9: Type 2 diabetes mellitus without complications) Cover with Humalog sliding scale 8. History of CHF (congestive heart failure) (Z86.79: Personal history of other diseases of the circulatory system) Not in acute exacerbation , obtain medical records from his last hospitalization 9. Renal insufficiency (N28.9: Disorder of kidney and ureter, unspecified) . Avoid nephrotoxins 10. Anemia (D64.9: Anemia, unspecified) Stable 11. Peripheral neuropathy (G62.9: Polyneuropathy, unspecified) gabapentin 12. Chronic GERD (K21.9: Gastro-esophageal reflux disease without esophagitis) Await confirmation of PPI 13. Dementia (F03.90: Unspecified dementia, unspecified severity, without behavioral disturbance, psychotic disturbance, mood disturbance, and anxiety) 14. History of COVID-19 (Z86.16: Personal history of COVID-19) 15. Humeral fracture (S42.309A: Unspecified fracture of shaft of humerus, unspecified arm, initial encounter for closed fracture) This was found incidentally as part of the trauma work-up which patient was seen by trauma surgeon. He was described as subtle cortical fracture associated with the intraosseous muscle needle which has since been removed 16. Obesity (E66.9: Obesity, unspecified) Lifestyle defecation outpatient follow-up 1. Unresponsive episode (R41.89: Other symptoms and signs involving cognitive functions and awareness) 1. Unspecified atrial fibrillation, (I48.91: Unspecified atrial fibrillation)Atrial fibrillation with slow ventricular response 3. History of seizures (Z87.898: Personal history of other specified conditions) 4. Coronary artery disease (I25.10: Atherosclerotic heart disease of [place] coronary artery without angina pectoris) 5. Hypertension (I10: Essential (primary) hypertension) 6. Hyperlipidemia (E78.5: Hyperlipidemia, unspecified) 7. Diabetes (E11.9: Type 2 diabetes mellitus without complications) 8. History of CHF (congestive heart failure) (Z86.79: Personal history of other diseases of the circulatory system) 9. Renal insufficiency (N28.9: Disorder of kidney and ureter, unspecified) 10. Anemia (D64.9: Anemia, unspecified) 11. Peripheral neuropathy (G62.9: Polyneuropathy, unspecified) 12. Chronic GERD (K21.9: Gastro-esophageal reflux disease without esophagitis) 13. Dementia (F03.90: Unspecified dementia, unspecified severity, without behavioral disturbance, psychotic disturbance, mood disturbance, and anxiety) 14. History of COVID-19 (Z86.16: Personal history of COVID-19) 15. Humeral fracture (S42.309A: Unspecified fracture of shaft of humerus, unspecified arm, initial encounter for closed fracture) 16. Obesity (E66.9: Obesity, unspecified) Orders: Automated Diff Basic Metabolic Panel CBC w/ Auto Diff eGFR Extra SST Tube Magnesium Level Place in Status This report was transcribed using voice recognition software , Every effort was made to ensure accuracy , however, inadvertently computerized bridge painter helper mistakes may be present . Addendum by Lorelei LEMONS, Nathaniel roy on December 23, 2022 01:03:20 EDT The note date is 12/22/2022 Extracted from: Title:APSO Note Author:Brandan BANEGAS Date:12/23/22 1. Unresponsive episode (R41 .89: Other symptoms and signs involving cognitive functions and awareness) Routine EEG this admission normal MRI with no acute changes, MRA head unremarkable, MRA neck could not be performed due to patient participation Keppra has been increased to 750 twice daily Carotid ultrasounds on telemetry 2. Atrial fibrillation with slow ventricular response (I48.91: Unspecified atrial fibrillation) EKG on admission atrial fibrillation with a junctional escape rhythm in the 50s Troponin levels negative Decrease Coreg to 3.125 twice daily , and to continue to hold apixaban , discontinue donepezil , Follow-up repeated EKG and if he continued to be a junctional rhythm may need consultation with Dr. Cedeno for pacemaker placement TSH normal, Follow-up cardiac echo Observe on telemetry Obtain medication records-from [facility] pending. 3. History of seizures (Z87.898: Personal history of other specified conditions) Place on seizure precautions. Keppra 750 twice daily Will obtain records from his recent hospitalization at [facility] to determine prior work-up and further past medical history. EEG normal. 4. Cor onary artery disease (I25.10: Atherosclerotic heart disease of [place] coronary artery without angina pectoris) Patient did have an abnormal EKG with interventricular conduction delay, Troponin negative Clopidogrel still on hold as above Obtain medical records Telemetry 5. Hypertension (I10: Essential (primary) hypertension) Stable 6. Hyperlipidemia (E78.5: Hyperlipidemia, unspecified) on pravastatin await confirmation of meds 7. Diabetes (E11.9: Type 2 diabetes mellitus without complications) Cover with Humalog sliding scale 8. History of CHF (congestive heart failure) (Z86.79: Personal history of other diseases of the circulatory system) Not in acute exacerbation , obtain medical records from his last hospitalization 9. Renal insufficiency (N28.9: Disorder of kidney and ureter, unspecified) . Avoid nephrotoxins 10. Anemia (D64.9: Anemia, unspecified) Stable 11. Peripheral neuropathy (G62.9: Polyneuropathy, unspecified) gabapentin 12. Chronic GERD (K21.9: Gastro-esophageal reflux disease without esophagitis) Await confirmation of PPI 13. Dementia (F03.90: Unspecified dementia, unspecified severity, without behavioral disturbance, psychotic disturbance, mood disturbance, and anxiety) 14. History of COVID-19 (Z86.16: Personal history of COVID-19) 15. Humeral fracture (S42.309A: Unspecified fracture of shaft of humerus, unspecified arm, initial encounter for closed fracture) This was found incidentally as part of the trauma work-up which patient was seen by trauma surgeon. He was described as subtle cortical fracture associated with the intraosseous muscle needle which has since been removed 16. Obesity (E66.9: Obesity, unspecified) Lifestyle defecation outpatient follow-up Extracted from: Title:Progress/SOAP Note Author:Dick Lema MD Date:12/22/22 1. Unresponsive episode (R41 .89: Other symptoms and signs involving cognitive functions and awareness) 1. Unspecified atrial fibrillation, (I48.91: Unspecified atrial fibrillation)Atrial fibrillation with slow ventricular response 3. History of seizures (Z87.898: Personal history of other specified conditions) 4. Coronary artery disease (I25.10: Atherosclerotic heart disease of [place] coronary artery without angina pectoris) It is unclear what exactly his history of coronary artery disease is as he is a poor historian and we do not have any records in the computer. Nonetheless we decreased his Coreg to 3.125 mg p.o. twice daily and his heart rate has improved. Recommend discontinuation donepezil as this may cause bradycardia and mental status changes as well. We will continue his low-dose Coreg given his suppose it history of coronary disease. We will get an EKG to see what his rhythm is today. If he continues to be in a junctional rhythm he may need consultation with Dr. Cedeno for pacemaker placement. 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 Would hold on Eliquis therapy until his mental status improves and his fall risk is assessed. 5. Hypertension (I10: Essential (primary) hypertension) 6. Hyperlipidemia (E78.5: Hyperlipidemia, unspecified) 7. Diabetes (E11.9: Type 2 diabetes mellitus without complications) 8. History of CHF (congestive heart failure) (Z86.79: Personal history of other diseases of the circulatory system) 9. Renal insufficiency (N28.9: Disorder of kidney and ureter, unspecified) 10. Anemia (D64.9: Anemia, unspecified) 11. Peripheral neuropathy (G62.9: Polyneuropathy, unspecified) 12. Chronic GERD (K21.9: Gastro-esophageal reflux disease without esophagitis) 13. Dementia (F03.90: Unspecified dementia, unspecified severity, without behavioral disturbance, psychotic disturbance, mood disturbance, and anxiety) 14. History of COVID-19 (Z86.16: Personal history of COVID-19) 15. Humeral fracture (S42.309A: Unspecified fracture of shaft of humerus, unspecified arm, initial encounter for closed fracture) 16. Obesity (E66.9: Obesity, unspecified) Orders: ECG 12 Lead Adult Extracted from: Title:APSO Note-neurology Author:Dinesh Rudd RN Date:12/22/22 Reason for consult: Unresponsive episode ASSESSMENT: History of dementia. History of seizure disorder, details unclear. Routine EEG here is normal. MRI brain is without acute findings. MRA of head was unremarkable. MRA of neck could not be performed due to patient participation. PLAN: 1. The Keppra has been increased to 750 mg twice daily. 2. Carotid ultrasound studies 3. No other recommendations at this time 1. Unresponsive episode (R41.89: Other symptoms and signs involving cognitive functions and awareness) 1. Unspecified atrial fibrillation, (I48.91: Unspecified atrial fibrillation)Atrial fibrillation with slow ventricular response 3. History of seizures (Z87.898: Personal history of other specified conditions) 4. Coronary artery disease (I25.10: Atherosclerotic heart disease of [place] coronary artery without angina pectoris) 5. Hypertension (I10: Essential (primary) hypertension) 6. Hyperlipidemia (E78.5: Hyperlipidemia, unspecified) 7. Diabetes (E11.9: Type 2 diabetes mellitus without complications) 8. History of CHF (congestive heart failure) (Z86.79: Personal history of other diseases of the circulatory system) 9. Renal insufficiency (N28.9: Disorder of kidney and ureter, unspecified) 10. Anemia (D64.9: Anemia, unspecified) 11. Peripheral neuropathy (G62.9: Polyneuropathy, unspecified) 12. Chronic GERD (K21.9: Gastro-esophageal reflux disease without esophagitis) 13. Dementia (F03.90: Unspecified dementia, unspecified severity, without behavioral disturbance, psychotic disturbance, mood disturbance, and anxiety) 14. History of COVID-19 (Z86.16: Personal history of COVID-19) 15. Humeral fracture (S42.309A: Unspecified fracture of shaft of humerus, unspecified arm, initial encounter for closed fracture) 16. Obesity (E66.9: Obesity, unspecified) Extracted from: Title:Consult Note Author:Mahesh Lema MD te:12/21/22 1. Unresponsive episode (R41 .89: Other symptoms and signs involving cognitive functions and awareness) 1. Unspecified atrial fibrillation, (I48.91: Unspecified atrial fibrillation)Atrial fibrillation with slow ventricular response Given the patient's decreased mental status, recent fall, he is a poor candidate for ongoing anticoagulation therapy. Would recommend discontinuing his Eliquis therapy. It is unclear why he is on Plavix and Eliquis as his history is somewhat difficult to obtain. 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 Would recommend holding his Plavix and Eliquis at this time until his mental status has either declared itself or improved. Would recommend decreasing his Coreg to 3.125 mg p.o. twice daily in an attempt to improve his heart rate. Patient may need to be evaluated for pacemaker. His TSH is normal. We will consider evaluation of hypoadrenalism. Would recommend obtaining a 2D echo with Doppler to evaluate his LV function and pulmonary pressures. We will hold off on stress testing at this time. Thank you very much for the opportunity to participate in the cardiac care of your patient. Consultation time took place between 8 AM and 8:30 AM. 3. History of seizures (Z87.898: Personal history of other specified conditions) 4. Coronary artery disease (I25.10: Atherosclerotic heart disease of [place] coronary artery without angina pectoris) 5. Hypertension (I10: Essential (primary) hypertension) 6. Hyperlipidemia (E78.5: Hyperlipidemia, unspecified) 7. Diabetes (E11.9: Type 2 diabetes mellitus without complications) 8. History of CHF (congestive heart failure) (Z86.79: Personal history of other diseases of the circulatory system) 9. Renal insufficiency (N28.9: Disorder of kidney and ureter, unspecified) 10. Anemia (D64.9: Anemia, unspecified) 11. Peripheral neuropathy (G62.9: Polyneuropathy, unspecified) 12. Chronic GERD (K21.9: Gastro-esophageal reflux disease without esophagitis) 13. Dementia (F03.90: Unspecified dementia, unspecified severity, without behavioral disturbance, psychotic disturbance, mood disturbance, and anxiety) 14. History of COVID-19 (Z86.16: Personal history of COVID-19) 15. Humeral fracture (S42.309A: Unspecified fracture of shaft of humerus, unspecified arm, initial encounter for closed fracture) 16. Obesity (E66.9: Obesity, unspecified) Extracted from: Title:Consult Note-neurology Author:Tobin GONZALEZ, N ichole Date:12/21/22 The patient is a 67-year-old male with a history of Progressive dementia, hypertension, hyperlipidemia, diabetes mellitus, with recent covert infection, who was admitted to the hospital for Episode of unresponsiveness at the [facility] care facility due to possible seizure. I cannot exclude syncope from cerebral hypoperfusion due to a cardiovascular etiology. I cannot exclude cerebral hypoperfusion from intracranial accidental cerebral artery stenosis or occlusion. Patient did have recent covert infection making the possibility of intracranial process such as cerebral ischemia consideration although he appears to be at baseline and does not have any focal neurological deficits on exam. Given the high morbidity and mortality associated with seizure disorder the patient is admitted to the hospital for further workup and evaluation and neurological assessment. -I have reviewed the CT scan of the brain personally -I recommend Considering obtaining an MRI scan of the brain to assess for a structural lesion Or cerebral ischemia which may have contributed to the patient's symptoms. I would consider MR angiogram of the head and neck to assess for intracranial or extracranial cerebral artery stenosis as well, pending the patient's evaluation -I recommend obtaining an EEG to assess for any epileptiform activity which may have contributed to the patient's clinical symptoms -I recommend Increasing the patient's Keppra to 750 mg twice a day. -I counseled the patient on the possible diagnosis, prognosis, evaluation, and treatment options. -I discussed the case with the hospitalist Kelly Macias NP 1. Unresponsive episode (R41.89: Other symptoms and signs involving cognitive functions and awareness) 1. Unspecified atrial fibrillation, (I48.91: Unspecified atrial fibrillation)Atrial fibrillation with slow ventricular response 3. History of seizures (Z87.898: Personal history of other specified conditions) 4. Coronary artery disease (I25.10: Atherosclerotic heart disease of [place] coronary artery without angina pectoris) 5. Hypertension (I10: Essential (primary) hypertension) 6. Hyperlipidemia (E78.5: Hyperlipidemia, unspecified) 7. Diabetes (E11.9: Type 2 diabetes mellitus without complications) 8. History of CHF (congestive heart failure) (Z86.79: Personal history of other diseases of the circulatory system) 9. Renal insufficiency (N28.9: Disorder of kidney and ureter, unspecified) 10. Anemia (D64.9: Anemia, unspecified) 11. Peripheral neuropathy (G62.9: Polyneuropathy, unspecified) 12. Chronic GERD (K21.9: Gastro-esophageal reflux disease without esophagitis) 13. Dementia (F03.90: Unspecified dementia, unspecified severity, without behavioral disturbance, psychotic disturbance, mood disturbance, and anxiety) 14. History of COVID-19 (Z86.16: Personal history of COVID-19) 15. Humeral fracture (S42.309A: Unspecified fracture of shaft of humerus, unspecified arm, initial encounter for closed fracture) 16. Obesity (E66.9: Obesity, unspecified) Extracted from: Title:Admission H & P Author:Isaías FLEMING DO Date:12/21/22 1. Unresponsive episode (R41 .89: Other symptoms and signs involving cognitive functions and awareness) Patient was transferred from [facility] from [facility] Patient was seen by the trauma services ,CT imaging of the head and chest demonstrated no traumatic injury. Patient at present is responsive and is denying any localized pain. Patient was described as, both at the [facility] and at this facility, despite a sternal rub having no response. He became responsive when patient had an IO placed in his left proximal humerus to gain immediate access for institution of medications. His [place] Coma Scale increased from a 3 to an 11. Patient was not noted on presentation to be hypotensive nor hypoxic. Patient was not described as being hypotensive or hypoxic at the [facility] after being found at approximately 10 PM. Patient was not noted to be hypoglycemic nor was he upon presentation here. Patient did have a recent increase in Keppra but there is no report of any recent seizure activity, specifics were not available. We will place patient on seizure precautions, obtain an EEG, with abnormal EKG described above, we will check cardiac enzymes with his known history of coronary artery disease. If remains here until Thursday can get an echocardiogram to assess systolic function. We will also observe on telemetry. Patient was noted this a.m. to have a heart rate in the high 40s while I was at the patient's bedside, which I believed to be due to below. In light of history below, cannot rule out hemodynamically significant bradycardia (though again there was no report of patient being bradycardic when he was unresponsive at the [facility] facility) will observe for any hemodynamically significant tachycardia. Will obtain further history both from the [facility] facility in regards to a similar event that occurred 3 days prior where he was reported to have been immediately responsive and her daughter showed up in the room. Ordered: Communication Order EEG 2. Atrial fibrillation with slow ventricular response (I48.91: Unspecified atrial fibrillation) External pharmacy report suggest patient is on carvedilol, await confirmation of meds from the [facility] facility. We will hold carvedilol or any other agents that have negative chronotropic effects. Observe on telemetry Ordered: TSH With T4fr Reflex 3. History of seizures (Z87.898: Personal history of other specified conditions) Place on seizure precautions. Continue Keppra. Will obtain records from his recent hospitalization at [facility] to determine prior work-up and further past medical history. Obtain in light of above an EEG Ordered: EEG 4. Coronary artery disease (I25.10: Atherosclerotic heart disease of [place] coronary artery without angina pectoris) Patient did have an abnormal EKG with interventricular conduction delay, T wave abnormalities in V3 through V6 but we have no prior tracings to compare. In light of above we will cycle cardiac enzymes, observe on telemetry and if patient remains hospitalized through Thursday consider an echocardiogram. Obtain records from [facility] which likely will include an ECG to determine baseline Ordered: Communication Order 5. Hypertension (I10: Essential (primary) hypertension) Await confirmation of medications from the [facility] facility and doses. We will avoid medications that had negative chronotropic effects. Monitor blood pressure 6. Hyperlipidemia (E78.5: Hyperlipidemia, unspecified) External pharmacy report suggest patient was on pravastatin await confirmation of meds 7. Diabetes (E11.9: Type 2 diabetes mellitus without complications) Extended care facility describes patient is having significant fluctuations in blood sugar. External pharmacy report suggest Basaglar, Trulicity, glyburide and metformin await confirmation of meds. Cover with Humalog sliding scale and observe for any 8. History of CHF (congestive heart failure) (Z86.79: Personal history of other diseases of the circulatory system) Per the [facility] while at [facility] last month. Will obtain records. It is uncertain if patient is systolic or diastolic dysfunction. Patient is not felt to be volume overloaded at this time Ordered: Communication Order 9. Renal insufficiency (N28.9: Disorder of kidney and ureter, unspecified) Patient is demonstrating prerenal indices do not see any evidence of volume overload. We will hold diuretics be cautious about hydration until further records can be obtained from [facility]. Avoid nephrotoxins 10. Anemia (D64.9: Anemia, unspecified) Patient's hemoglobin of 11 is very similar to the last hemoglobin available at the [facility] from 24 October where it was 10.8. Observe for continued stability specially if confirmed that patient is on Eliquis 11. Peripheral neuropathy (G62.9: Polyneuropathy, unspecified) Await confirmation of gabapentin 12. Chronic GERD (K21.9: Gastro-esophageal reflux disease without esophagitis) Await confirmation of PPI 13. Dementia (F03.90: Unspecified dementia, unspecified severity, without behavioral disturbance, psychotic disturbance, mood disturbance, and anxiety) Await confirmation of Aricept that was noted on external pharmacy report. I suspect based on examination and succussion with the [facility] staff that he is at baseline 14. History of COVID-19 (Z86.16: Personal history of COVID-19) Obtain records from his recent hospitalization at [facility]. Patient is having no respiratory symptoms, lungs are clear, sats as high as 100% on room air Ordered: Communication Order 15. Humeral fracture (S42.309A: Unspecified fracture of shaft of humerus, unspecified arm, initial encounter for closed fracture) This was found incidentally as part of the trauma work-up which patient was seen by trauma surgeon. He was described as subtle cortical fracture associated with the intraosseous muscle needle which has since been removed 16. Obesity (E66.9: Obesity, unspecified) Orders: acetaminophen, 650 mg = 2 tab(s), Tab, Oral, q6hr PRN Pain, Routine, Start date 12/21/22 5:23:00 EDT, 12/21/22 5:23:00 EDT glucose, 50 mL, Soln-IV, IV Push, Once PRN Blood glucose, Routine, Start date 12/21/22 5:25:00 EDT hydrALAZINE, 10 mg = 0.5 mL, Injection, IV Push, q6hr PRN Other (see comment), Routine, Start date 12/21/22 5:23:00 EDT, 12/21/22 5:23:00 EDT insulin lispro, 0-10 Units, Injection-Insulin, SubCutaneous, QIDACHS, Routine, Start date 12/21/22 7:30:00 EDT ondansetron, 4 mg = 2 mL, Injection, IV Push, q6hr PRN Nausea, Routine, Start date 12/21/22 5:23:00 EDT, 12/21/22 5:23:00 EDT Sodium Chloride 0.9% intravenous solution 1,000 mL, 1,000 mL, IV, 50 mL/hr, Routine, Start date 12/21/22 5:23:00 EDT, 20 hour(s), Total volume (mL): 1,000, 111.3 kg, 2.39, m2 Basic Metabolic Panel Cardiac Monitoring CBC w/ Auto Diff Diabetic/Calorie Control Diet Elevate Head of Bed Hypoglycemia Protocol Responsive Patient Hypoglycemia Protocol Unresponsive Patient Notify Provider Vital Signs Notify Provider Vital Signs Place in Status Precautions Precautions Routine Capillary Glucose POC Vital Signs Weight Admit patient as an observation with the anticipation he will require less than a 2 midnight stay Extracted from: Title:ED Note Author:Tita Albright DO Date :12/21/22 Bradycardia (R00.1: Bradycar estuardo, unspecified) Humeral fracture (S42.309A: Unspecified fracture of shaft of humerus, unspecified arm, initial encounter for closed fracture) Unresponsive episode (R41.89: Other symptoms and signs involving cognitive functions and awareness) Orders: lidocaine, 100 mg, 5 mL, Injection, Intraosseous, Once, Stop date 12/20/22 23:07:00 EDT, Start date 12/20/22 23:07:00 EDT ABO/Rh ABO/Rh History Check Antibody Screen Automated Diff Basic Metabolic Panel Blood Bank ID# CBC w/ Auto Diff CT Abdomen/Pelvis w/o Contrast CT Chest w/o Contrast CT Head or Brain w/o Contrast CT Spine Cervical w/o Contrast Drug Screen Urine ECG 12 Lead Adult ED Cardiac Monitoring ED Physician consult Hospitalist for continued care eGFR Ethanol Level Hepatic Function Panel Lactic Acid Lactic Acid Lipase Level NPO Diet Oxygen Therapy PT & PTT Pulse Oximetry Continuous Saline Lock Insert Sling Apply Troponin Troponin 3 Hr. Troponin 6 Hr. UA With Cult Reflex XR Hip 2-3 Views Left + Pelvis XR Shoulder Complete Left [place] [facility]03-19-2023 NoteFisher [facility] HospitalComment on above:Result Comment: Electronically Signed By: Isaías FLEMING DO\.br\Date and Time Signed: 12/21/22 05:30 [id number] Evaluation note* Encounter Date Diagnosis Assessment Notes Treatment Notes Treatment Clinical Notes Sep, Injury (ICD-10 - T14.90XA) XR images and final report reviewed, XR shows nondisplaced fracture to greater tuberocity, as well as distal clavicle fracture. Attempted to Figure-8 in office, unable due to not having correct size. Sling provided. Advised to limit use of right arm. Ice 15-20 minutes at a time multiple times a day, ensure thin cloth barrier between skin and ice. Advised patient to use OTC NSAIDs/Tylenol or home medicaiton of Oxycodone as directed as needed for discomfort. Instructed patient to follow up with Ortho in 2-3 days. Immediate eval by ER for warning s/sx as discussed. Patient and daughter verbalizes understanding and is agreeable to treatment plan Sep, Closed fracture of right shoulder, initial encounter (ICD-10 - S42.91XA) See above treatment plan recommendation Sep, Closed nondisplaced fracture of right clavicle, unspecified part of clavicle, initial encounter (ICD-10 - S42.001A) See above treatment plan recommendations Sep, Other Clavicle fracture: adult home care material was printed [employer] Other 12-14-2022 Note [id number]#1.00[facility]10-20-2022 [id number]#1.00[facility]06[facility] History of Present illness Narrative * 67-year-old male with a past medical history of coronary artery disease, reflux disease, dementia, diabetes mellitus, hypertension, hyperlipidemia and seizure disorder. Also history of diabetes mellitus. Patient had a history of atrial fibrillation for which he was on calcium channel and also beta-celsa therapy and Eliquis. * Patient apparently for the last year he has been having frequent episodes of dizziness and syncope for which beta-blockers and calcium channel celsa have been decreased due to possibility of bradycardia and also he has been off Plavix and Eliquis therapy. * Patient had an outside Holter monitor performed that shows sinus bradycardia with brief episodes ofparoxysmal supraventricular and nonsustained ventricular tachycardia up to 6 beats of duration. Also during hospitalizations due to syncope, he was orthostatic for which recently was placed on midodrine decrease in the frequency of the syncopal episodes. * Patient states that he continues living in a rehabilitation area. EKG performed in February 17, 2023 shows possibility of sinus bradycardia at a rate of 56 bpm with intraventricular conduction delay QRS duration 134 ms. QT corrected 429 ms. An echocardiogram in December 2022 shows left ventricular ejectionfraction 60 to 65% with grade 2 diastolic dysfunction. Trace tricuspid regurgitation. A stress echocardiogram in January 2023 shows no evidence of ischemia with a left ventricular ejection fraction 60 to 65%. * Clinical impression * 1. Recurrence of syncope * 2. Evidence of bradycardia during admissions at outside hospital * 3. Orthostatic hypotension, on midodrine therapy with some improvement of his syncopal episode * 4. History of dementia * 5. History of hypertension now with episodes of hypotension * 6. Diabetes mellitus * 7. Normal left ventricular function per echocardiogram as described above * 8. No evidence of ischemia per stress test as described above * Plan recommendations * I had a lengthy discussion with patient and family member regarding management for recurrence of syncope. Most likely is related with postural hypotension. Midodrine is working on diet but also couldbe related with rhythm abnormalities especially bradycardia or AV lavon disease. Recommendation was for loop recorder for further evaluation of syncopal episodes was discussed today during this office visit. Procedure, risk, benefits and possible complications discussed with patient. All questions answered. * Patient and family members agree with that. * If patient continues having episodes of syncope associated with postural hypotension we will add Florinef to his medical therapy. * Follow my office 7 days postprocedure for wound assessment. * Risk factor modifications and lifestyle modifications discussed with patient. Diet , exercise and hydration discussed during this office visit, as well as avoid alcohol, smoking and excessive caffeine use. * Prescriptions were refilled during this office visit * I have personally review with patient during this office visit, laboratory data, echocardiogram results, stress test results, Holter event monitor results prior and after the last electrophysiology visit. All questions has been answered. * Please excuse any errors in grammar or translation related to this dictation. Voice recognition software was utilized to prepare this document. -[facility] [address] DO Work Phone: Chief complaint Narrative - ReportedPatient here for EP consultation per Dr. Lee due to [id number] [place] [facility] [address] DO Work Phone: Evaluation + Plan note Future Appointments Appointment Date:04/02/2023 11:00:00 AM Scheduled Provider:Starr Oneal DO [facility] Future Appointments Appointment Date:03/26/2023 10:15:00 AM Scheduled Provider:Jaja Lee MD Location:[facility] Appointment Type:Cardiology Follow Up (FT[facility] Future Appointments Appointment Date:06/25/2023 03:15:00 PM Scheduled Provider:Jaja Lee MD Location:[facility] Appointment Type:Cardiology Follow Up (FT[facility] noteNo assessment information available [facility] Work Phone: Evaluation note* Diagnosis Status post placement of implantable loop recorder Syncope and collapse documented in this encounter [facility] Work Phone: Evaluation note* Diagnosis Status post placement of implantable loop recorder Syncope and collapse documented in this encounter [facility] Work Phone: Evaluation note* Diagnosis Status post placement of implantable loop recorder Syncope and collapse documented in this encounter [facility] Work Phone: Evaluation note* Diagnosis Syncope and collapse documented in this encounter [facility] Work Phone: [phone] note* Diagnosis Anticoagulation management encounter- Primary Encounter for therapeutic drug monitoring Abnormal EKG Nonspecific abnormal electrocardiogram (ECG) (EKG) Longstanding persistent atrial fibrillation (CMS/HCC) Primary hypertension Unspecified essential hypertension Palpitations Status post placement of implantable loop recorder BMI 34.0-34.9,adult Former smoker Personal history of tobacco use, presenting hazards to health documented in this encounter [facility] Work Phone: [phone] note* Diagnosis Presence of other cardiac implants and grafts Syncope and collapse documented in this encounter [facility] Work Phone: [phone] note* Diagnosis Status post placement of implantable loop recorder Syncope and collapse documented in this encounter [facility] Work Phone: [phone] note* Diagnosis Status post placement of implantable loop recorder Syncope and collapse documented in this encounter [facility] Work Phone: Evaluation note* Diagnosis Abnormal EKG- Primary Nonspecific abnormal electrocardiogram (ECG) (EKG) Former smoker Personal history of tobacco use, presenting hazards to health Status post placement of implantable loop recorder Syncope and collapse Longstanding persistent atrial fibrillation (CMS/HCC) Anticoagulation management encounter Encounter for therapeutic drug monitoring Palpitations BMI 30.0-30.9,adult High risk medication use Bradycardia Other specified cardiac dysrhythmias documented in this encounter [facility] Work Phone: [phone] note* Diagnosis Status post placement of implantable loop recorder documented in this encounter [facility] Work Phone: Evaluation note* Diagnosis Status post placement of implantable loop recorder Syncope and collapse documented in this encounter [facility] Work Phone: History general Narrative - Reported* Type Description Date Medical History htn Medical History DM Medical History hypercholesterolemia Medical History staph infection Medical History h/o atrial fibrillation Surgical History left knee arthroscopy Surgical History [facility] Hospitalization History see above [facility] Other Hospital course Narrative No data available for this section [facility] No data available for this section [facility] No data available for this section [facility] Discharge Instructions * Instructions* Machelle Rosario RN - 09/10/2019 GENERAL POST-OPERATIVE PATIENT INSTRUCTIONS FOLLOW-UP: Please make an appointment with your physician in {NUMBER:[id number]} {TIME PERIOD:9075}. Call your physician immediately if you have any fevers greater than 102.5, drainage from you wound thatis not clear or looks infected, persistent bleeding, increasing abdominal pain, problems urinating,or persistent nausea/vomiting. WOUND CARE INSTRUCTIONS: Keep a dry clean dressing on the wound if there is drainage. The initial bandage may be removed after 24 hours. Once the wound has quit draining you may leave it open to air.If clothing rubs against the wound or causes irritation and the wound is not draining you may coverit with a dry dressing during the daytime. Try to keep the wound dry and avoid ointments on the wound unless directed to do so. If the wound becomes bright red and painful or starts to drain infectedmaterial that is not clear, please contact your physician immediately. If the wound is mildly pink and has a thick firm ridge underneath it, this is normal, and is referred to as a healing ridge. This will resolve over the next 4-6 weeks. DIET: You may eat any foods that you can tolerate. It is a good idea to eat a high fiber diet and take in plenty of fluids to prevent constipation. If you do become constipated you may want to take amild laxative or take ducolax tablets on a daily basis until your bowel habits are regular. Constipation can be very uncomfortable, along with straining, after recent surgery. ACTIVITY: You are encouraged to cough and deep breath or use your incentive spirometer if you were given one, every 15-30 minutes when awake. This will help prevent respiratory complications and low grade fevers post-operatively if you had a general anesthetic. You may want to hug a pillow when coughing and sneezing to add additional support to the surgical area, if you had abdominal or chest surgery, which will decrease pain during these times. You are encouraged to walk and engage in light activity for the next two weeks. You should not lift more than 20 pounds during this time frame as it could put you at increased risk for complications. Twenty pounds is roughly equivalent to a plastic bag of groceries. MEDICATIONS: Try to take narcotic medications and anti-inflammatory medications, such as tylenol, ibuprofen, naprosyn, etc., with food. This will minimize stomach upset from the medication. Should you develop nausea and vomiting from the pain medication, or develop a rash, please discontinue the medication and contact your physician. You should not drive, make important decisions, or operate machinery when taking narcotic pain medication. QUESTIONS: Please feel free to call your physician or the hospital screen printing machine operator if you have any questions, and they will be glad to assist you. documented in this encounter History of Present Illness * Kristyn Nevarez, PT - 09/10/2019 2:08 PM EST Physical Therapy Facility/Department: [address] ORTHO/MED SURG Initial Assessment NAME: Otilio Suarez : 1955 Date of Service: 09/10/2019 Discharge Recommendations: Further therapy recommended at discharge for higher level balance and gait training. PT Equipment Recommendations Equipment Needed: Yes Mobility Devices: Walker Walker: Rolling Assessment Body structures, Functions, Activity limitations: Decreased functional mobility ;Decreased endurance;Decreased balance;Decreased strength Assessment: The patient is grossly CGA for mobility and would benefit from additional acute PT to improve balance, gait and endurance deficits. Prognosis: Good Decision Making: Medium Complexity PT Education: Goals;PT Role;Plan of Care;Transfer Training;Equipment REQUIRES PT FOLLOW UP: Yes Activity Tolerance Activity Tolerance: Patient Tolerated treatment well Patient Diagnosis(es): There were no encounter diagnoses. has a past medical history of Diabetes mellitus type 2, insulin dependent (HCC), H/O repair of rotator cuff, History of appendectomy, History of left knee replacement, Hyperlipidemia, Hypertension, and NE (myocardial infarction) (FORMERLY [facility]). has a past surgical history that includes incision and drainage (Left, 09/06/2019) and Groin Surgery(Left, 09/09/2019). Restrictions Restrictions/Precautions Restrictions/Precautions: General Precautions Required Braces or Orthoses?: No Position Activity Restriction Other position/activity restrictions: up in chair, ambulate pt Vision/Hearing Vision: Within Functional Limits Hearing: Within functional limits Subjective General Patient assessed for rehabilitation services?: Yes Response To Previous Treatment: Not applicable Family / Caregiver Present: No Follows Commands: Within Functional Limits Subjective Subjective: RN and pt agreeable to PT. Pt supine in bed upon arrival, very pleasant and cooperativethroughout. Pain Screening Patient Currently in Pain: Yes Pain Assessment Pain Assessment: 0-10 Pain Level: 1 Pain Type: Acute pain Pain Location: Groin Pain Orientation: Left Pain Descriptors: Burning Pain Frequency: Continuous Pain Onset: On-going Vital Signs Patient Currently in Pain: Yes Orientation Orientation Overall Orientation Status: Within Functional Limits Social/Functional History Social/Functional History Lives With: Spouse Type of Home: Mobile home Home Layout: One level Home Access: Stairs to enter with rails Entrance Stairs - Number of Steps: 4 Entrance Stairs - Rails: Both Bathroom Shower/Tub: Walk-in shower Bathroom Toilet: Standard Bathroom Equipment: Grab bars in shower, Shower chair, Toilet raiser, Grab bars around toilet(pt reported no use of shower chair at baseline ) Home Equipment: Standard walker, Cane(pt reported no use of DME at baseline ) Receives Help From: Family ADL Assistance: Independent Homemaking Assistance: Independent Homemaking Responsibilities: Yes(pt reported splitting with IADls) Meal Prep Responsibility: Secondary Laundry Responsibility: Secondary Cleaning Responsibility: Secondary Ambulation Assistance: Independent Transfer Assistance: Independent Active Ferris Wheel Attendant: Yes Mode of Transportation: Car 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 Additional Comments: pt reported able to assist PRN Cognition Cognition Overall Cognitive Status: WFL Objective Joint Mobility Spine: WFL ROM RLE: WFL ROM LLE: WFL ROM RUE: WFL ROM LUE: WFL Strength RLE Strength RLE: WFL Strength LLE Strength LLE: WFL Strength RUE Strength RUE: WFL Strength LUE Strength LUE: WFL Tone RLE RLE Tone: Normotonic Tone LLE LLE Tone: Normotonic Motor Control Gross Motor?: WFL Sensation Overall Sensation Status: WFL Bed mobility Supine to Sit: Stand by assistance Sit to Supine: (pt retired to sitting in chair at end of session) Scooting: Stand by assistance Transfers Sit to Stand: Contact guard assistance Stand to sit: Contact guard assistance Bed to Chair: Contact guard assistance Comment: CGA for safety, VC's for UE placement with good return demo. Ambulation Ambulation?: Yes Ambulation 1 Surface: level tile Device: Rolling Walker Assistance: Contact guard assistance Quality of Gait: decreased donis, steady, no LOB Distance: 300ft Comments: Pt reports improved ambulation from baseline Stairs/Curb Stairs?: No Balance Posture: Good Sitting - Static: Good Sitting - Dynamic: Good Standing - Static: Good;- Standing - Dynamic: Fair;+ Comments: standing balance assessed with RW Plan Plan Times per week: 5x/wk Current Treatment Recommendations: Strengthening, Balance Training, Functional Mobility Training, Transfer Training, Gait Training, Stair training, Endurance Training, ROM, Safety Education & Training, Patient/Caregiver Education & Training, Equipment Evaluation, Education, & procurement Safety Devices Type of devices: Gait belt, Nurse notified, Call light within reach, Left in chair Restraints Initially in place: No AM-PAC Score AM-PAC Inpatient Mobility Raw Score : 18 (09/10/19 1402) AM-PAC Inpatient T-Scale Score : 43.63 (09/10/19 140) Mobility Inpatient CMS 0-100% Score: 46.58 (09/10/19 1402) Mobility Inpatient CMS G-Code Modifier : CK (09/10/191401) Goals Short term goals Time Frame for Short term goals: 14 visits Short term goal 1: Perform bed mobility and functional transfers independently Short term goal 2: Ambulate 300ft with least restrictive AD and supervision Short term goal 3: Participate in 30 minutes of therapy to demo increased endurance Short term goal 4: Ascend/descend 4 steps with HR and SBA Short term goal 5: Demo Fair+ dynamic standing balance to decrease risk of falls Therapy Time Individual Concurrent Group Co-treatment Time In 0857 Time Out 0917 Minutes 20 Timed Code Treatment Minutes: 8 Minutes Kristyn Nevarez PT * Juanita Paula OT - 09/10/2019 1:05 PM EST Occupational Therapy Occupational Therapy Initial Assessment Date: 09/10/2019 Patient Name: Otilio Suarez : 1955 Date of Service: 09/10/2019 Discharge Recommendations: No therapy recommended at discharge. Assessment Performance deficits / Impairments: Decreased functional mobility ;Decreased endurance;Decreased ADL status;Decreased high-level IADLs Treatment Diagnosis: septic shock Prognosis: Good Decision Making: Medium Complexity Patient Education: pt ed on POC, purpose of eval, importance of movement, safety during functional transfers/functional mobility. good return REQUIRES OT FOLLOW UP: Yes Activity Tolerance Activity Tolerance: Patient Tolerated treatment well Safety Devices Safety Devices in place: Yes Type of devices: Gait belt;Call light within reach;Left in chair Restraints Initially in place: No Patient Diagnosis(es): There were no encounter diagnoses. has a past medical history of Diabetes mellitus type 2, insulin dependent ([facility]LY [facility]), H/O repair of rotator cuff, History of appendectomy, History of left knee replacement, Hyperlipidemia, Hypertension, and NE (myocardial infarction) (FORM[facility]LY [facility]). has a past surgical history that includes incision and drainage (Left, 09/06/2019) and Groin Surgery(Left, 09/09/2019). Treatment Diagnosis: septic shock Restrictions Restrictions/Precautions Required Braces or Orthoses?: No Position Activity Restriction Other position/activity restrictions: up in chair, ambulate pt Subjective General Patient assessed for rehabilitation services?: Yes Family / Caregiver Present: No Diagnosis: septic shock General Comment Comments: RN ok'd for therapy this morning. Pt agreeable to participate in session and cooperative/pleasant throughout Patient Currently in Pain: Yes Pain Assessment Pain Assessment: 0-10 Pain Level: 1 Pain Type: Acute pain;Surgical pain Pain Location: Groin Non-Pharmaceutical Pain Intervention(s): Therapeutic presence;Distraction;Ambulation/Increased Activity Response to Pain Intervention: Patient Satisfied Oxygen Therapy O2 Device: None (Room air) Social/Functional History Social/Functional History Lives With: Spouse Type of Home: Mobile home Home Layout: One level Home Access: Stairs to enter with rails Entrance Stairs - Number of Steps: 4 Entrance Stairs - Rails: Both Bathroom Shower/Tub: Walk-in shower Bathroom Toilet: Standard Bathroom Equipment: Grab bars in shower, Shower chair, Toilet raiser, Grab bars around toilet(pt reported no use of shower chair at baseline ) Home Equipment: Standard walker, Cane(pt reported no use of DME at baseline ) Receives Help From: Family ADL Assistance: Independent Homemaking Assistance: Independent Homemaking Responsibilities: Yes(pt reported splitting with IADls) Meal Prep Responsibility: Secondary Laundry Responsibility: Secondary Cleaning Responsibility: Secondary Ambulation Assistance: Independent Transfer Assistance: Independent Active Ferris Wheel Attendant: Yes Mode of Transportation: Car 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 Additional Comments: pt reported able to assist PRN Objective Vision: Within Functional Limits Hearing: Within functional limits Orientation Overall Orientation Status: Within Functional Limits Balance Sitting Balance: Modified independent (~8 minutes on EOB and in chair ) Standing Balance: Stand by assistance(with RW ) Standing Balance Time: ~5 minutes Activity: pt completed functional mobility in hallway with PT and within hopsital room Comment: pt with no LOB ADL Feeding: Modified independent Grooming: Modified independent UE Bathing: Supervision LE Bathing: Minimal assistance UE Dressing: Supervision(pt donned gown around back while sitting on EOB ) LE Dressing: Minimal assistance Toileting: Contact guard assistance Tone RUE RUE Tone: Normotonic Tone LUE LUE Tone: Normotonic Coordination Movements Are Fluid And Coordinated: Yes Bed mobility Supine to Sit: Stand by assistance Sit to Supine: (pt retired to sitting in chair at end of session) Scooting: Stand by assistance Transfers Sit to stand: Contact guard assistance Stand to sit: Contact guard assistance Transfer Comments: with RW Cognition Overall Cognitive Status: WFL Sensation Overall Sensation Status: WFL LUE AROM : WFL Left Hand AROM: WFL RUE AROM : WFL Right Hand AROM: WFL LUE Strength Gross LUE Strength: WFL L Hand General: 4+/5 RUE Strength Gross RUE Strength: WFL R Hand General: 4+/5 Plan Plan Times per week: 3-4x/wk AM-PAC Score AM-[facility] Inpatient Daily Activity Raw Score: 20 (09/10/19 1303) AM-[facility] Inpatient ADL T-Scale Score : 42.03 (09/10/19 1303) ADL Inpatient CMS 0-100% Score: 38.32 (09/10/19 1303) ADL Inpatient [facility] G-Code Modifier : CJ (09/10/19 130) Goals Short term goals Time Frame for Short term goals: pt will, by discharge Short term goal 1: complete LB ADLs with SBA and set up Short term goal 2: complete UB ADLs and grooming tasks with mod I and set up Short term goal 3: increase activity tolerance to 25+ minutes in order to participate in daily tasks Short term goal 4: dem mod I during functional transfers/functional mobility with LRD, as needed Short term goal 5: dem ~8 minutes dynamic standing tolerance with mod I in order to complete functional tasks Therapy Time Individual Concurrent Group Co-treatment Time In 08 Time Out 0916 Minutes 19 Juanita Paula OTR/L * Frances Moreno, DO - 09/10/2019 6:29 AM EST General Surgery: Daily Progress Note POD1 Left groin wound washout and closure with drain placement PATIENT NAME: Otilio Suarez TODAY'S DATE: 09/10/2019, 6:29 AM CC: Necrotizing fascitis SUBJECTIVE: Pt seen and examined at bedside. No acute events overnight, afebrile, vital signs stable, patient transferred out of ICU, pain well controlled no need for narcotics overnight. Patient has not been ambulating, will recommend ambulation around the unit today. ASH drain output overnight 100 mL, serosanguineous. Mild amount of strikethrough on the ABD pads, incision clean, no erythema around suture points. Passing flatus, no bowel movement at this point. OBJECTIVE: VITALS: BP (!) 147/54 Pulse 83 Temp 99.3 F (37.4 C) (Oral) Resp 16 Ht 6' 2 (1.88 m) Wt 272 lb 7.8 oz (123.6 kg) SpO2 95% BMI 34.99 kg/m INTAKE/OUTPUT: Intake/Output Summary (Last 24 hours) at 09/10/2019628 Last data filed at 09/10/2019 06 Gross per 24 hour Intake 1255 ml Output 1783 ml Net -528 ml PHYSICAL EXAM: General Appearance: awake, alert, oriented, in no acute distress HEENT: Normocephalic, atraumatic, mucus membranes moist Heart: Heart regular rate and rhythm Lungs: No respiratory distress, equal chest wall motion bilaterally Abdomen: Soft, non distended, non tender to palpation. Incision: Left groin incision with much improved overlying erythema, drain in place and to bulb suction. Small amount of serosanguineous drainage noted inferior portion of incision. Extremities: No cyanosis, pitting edema, rashes noted. Data: CBC with Differential: Lab Results Component Value Date WBC 8.6 09/09/2019 RBC 3.95 09/09/2019 HGB 11.7 09/09/2019 HCT 34.8 09/09/2019 PLT 248 09/09/2019 MCV 88.1 09/09/2019 MCH 29.6 09/09/2019 MCHC 33.6 09/09/2019 RDW 12.1 09/09/2019 LYMPHOPCT 17 09/09/2019 MONOPCT 9 09/09/2019 BASOPCT 1 09/09/2019 MONOSABS 0.81 09/09/2019 LYMPHSABS 1.49 09/09/2019 EOSABS 0.29 09/09/2019 BASOSABS 0.04 09/09/2019 DIFFTYPE NOT REPORTED 09/09/2019 BMP: Lab Results Component Value Date NA 137 09/09/2019 K 4.1 09/09/2019 CL 101 09/09/2019 CO2 24 09/09/2019 BUN 22 09/09/2019 LABALBU 2.6 09/06/2019 CREATININE 0.84 09/09/2019 CALCIUM 7.9 09/09/2019 GFRAA >60 09/09/2019 LABGLOM >60 09/09/2019 GLUCOSE 181 09/09/2019 Radiology Review: ASSESSMENT: Active Hospital Problems Diagnosis Date Noted Current smoker [F17.200] 09/09/2019 Coronary artery disease [I25.10] 09/09/2019 History of alcohol abuse [F10.11] 09/09/2019 Mild protein-calorie malnutrition (HCC) [E44.1] 09/09/2019 Sleep apnea, obstructive - nightly CPAP [G47.33] 09/09/2019 Normocytic anemia [D64.9] 09/09/2019 Hyperlipidemia [E78.5] Hypertension [I10] Diabetes mellitus type 2, insulin dependent (HCC) [E11.9, Z79.4] Necrotizing fasciitis (HCC) [M72.6] 09/07/2019 63 y.o. male with necrotizing fasciitis of left groin Postop day 1 left groin wound washout and closure with drain placement 1. Uncontrolled type 2 diabetes Plan: 1. Continue bowel regimen of senna-docusate, miralax scheduled 2. Recommend tight glucose control <180 3. Pt ok for anticoagulation from surgery standpoint 4. Patient must be up of bed and in chair, recommend at least TID 5. May discontinue antibiotic therapy today 6. Patient okay for discharge from surgical standpoint, will need follow-up in office in 10 to 14 days for wound evaluation and suture removal 7. Medical management per primary team. Will follow along Associated attestation - Lemuel Diaz DO - 09/10/2019 7:45 AM EST Attending Supervising Physician s Attestation Statement I was present with the resident physician during the history and exam. I discussed the findings andplans with the resident physician and agree as documented in his note * Monse Beaulieu RCP - 09/10/2019 1:37 AM EST PATIENT REFUSES TO WEAR BIPAP [x] Risks and benefits explained to patient [x] Patient refuses to wear Bipap stating no [x] Patient verbalizes understanding of information presented. * Frances Moreno DO - 09/09/2019 4:01 PM EST Post Op Note SUBJECTIVE Pt s/p left groin wound washout and closure. Patient is doing well in the postoperative period, patient complaining of minimal pain, 3-4 out of 10 and states that it is significantly improved from preoperatively. Patient denies chest pain, shortness of breath, nausea, vomiting, diarrhea. Patient states that he feels well enough to get out of bed and sit in the chair, patient has been tolerating adiet without issue. ASH drain is in place, secured to the skin, and has had approximately 60 mL of serosanguineous fluid output since the procedure. OBJECTIVE VITALS: BP (!) 145/80 Pulse 78 Temp 97.7 F (36.5 C) (Oral) Resp 19 Ht 6' 2 (1.88 m) Wt 272 lb 7.8 oz (123.6 kg) SpO2 95% BMI 34.99 kg/m GENERAL: awake and alert. No acute distress CARDIOVASCULAR: regular rate and rhythm LUNGS: Equal chest rise and fall bilaterally, no increased work of breathing ABDOMEN: Abdomen soft, non-tender, non-distended INCISION: Incision clean and intact, dry gauze dressing has a small amount of serosanguineous strikethrough noted at the inferior portion of the wound, there is no overt saturation ASSESSMENT 1. POD# 0 s/p left groin wound washout and closure PLAN 1. Patient okay to be transferred from the ICU 2. Will change dressing in the a.m. 3. Recommend keep glucose less than 180 4. Monitor drain output every shift 5. Patient to be up and ambulating as tolerated, and in the chair at minimum 3 times per day 6. May discontinue antibiotics 24 hours post wound closure if no worsening erythema or overlying skin changes * Trupti Cohen MD - 09/09/2019 2:36 PM EST Critical care team - Resident sign-out to medicine service Date and time: 09/09/2019 2:36 PM Patient's name: Otilio Suarez Patient's account/billing number: [id number] Patient's Date of : 1955 Age: 63 y.o. Date of Admission: 09/06/2019 5:42 PM Length of stay during current admission: 3 Primary Care Physician: Bernie Guerra MD Code Status: Full Code Mode of physician to physician communication: [] Via telephone [x] In person Date and time of sign-out: 09/09/2019 2:36 PM Accepting Internal Medicine resident: Dr. Hanna Accepting Medicine team: IM Team Med 2 Accepting team's attending: Dr. Shawn Healy Patient's current ICU Bed: 115 Patient's assigned bed on floor: 238 [x] Med-Surg Monitored [] Step-down [] Psychiatry ICU [] Psych floor Reason for ICU admission: Necrotizing fascitis ICU course summary: Otilio Suarez is a 63 y.o. transfer from [facility] for concern of left leg abscess/ necrotizing faciitis. Patient states he noticed an abscess on his left leg last which has progressed. He says the pain became worse which prompted his ED visit. At [facility] his [facility] scan was remarkable for large abscess with air concerning for necrotizing facitis. Patient received levaquin (pennicillin allergy), clindamycin and vancomycin prior to transfer. Glucose elevated and was placed on insulin drip. Patient was taken for surgery on 09/06 and was started on clindamycin, zosyn and vancomycin. vanc discontinued on 09/09. Insulin drip discontinued on 09/08 Patient received lantus 10 units for bridging. repeat surgery for approximation done on 09/09. Procedures during patient's ICU stay: I&D done Current Vitals: BP 139/71 Pulse 74 Temp 97.7 F (36.5 C) (Oral) Resp 20 Ht 6' 2 (1.88 m) Wt 272 lb 7.8 oz(123.6 kg) SpO2 97% BMI 34.99 kg/m Cultures: Blood cultures: [] None drawn [x] Negative [] Positive (Details: ) Urine Culture: [] None drawn [x] Negative [] Positive (Details: ) Sputum Culture: [x] None drawn [] Negative [] Positive (Details: ) Endotracheal aspirate: [x] None drawn [] Negative [] Positive (Details: ) Tissue culture showed normal tawnya Anaerobic and aerobic culture with groin swab showed rare neutrophils and mixed bacterial morphocytes seen on gram stain. Normal skin tawnya and mixed anaerobic tawnya. Consults: 1. General surgery Assessment: Patient Active Problem List Diagnosis Date Noted Necrotizing fasciitis (HCC) 09/07/2019 Septic shock (HCC) 09/06/2019 Recommended Follow-up: NEURO: History of ETOH abuse -currently not a drinker - AO x 3 - Neuro checks - Analgesia CV: PMH CAD -on heparin, will hold for now given surgery - patient started on Eliquis today. PM HTN -currently normotensive -resume home meds if needed - BP and HR stable - Continue to monitor PULM: COPD current smoker 1ppd -recommend cessation -aerosols prn -5lpm of oxygen via nasal cannula currently Tobacco abuse -recommend cessation - No respiratory distress - Encourage frequent pulmonary toilet with IS, deep breathing / coughing exercises when appropriate GI/DVT PROPHYLAXIS: DVT ppx: Eliquis Diet as tolerated RENAL: DM2 with hyperglycemia Insulin drip discontinued on 09/08 Patient received lantus 10 units for bridging. Also on ISS THANG -resolved ID/ HEME: Necrotizing fascitis LLE -General surgery did I&D emergently on 09/06 - repeat surgery for approximation to be done on 09/09. -currently on levaquin, clindamycin - vanc discontinued on 09/09 - Afebrile Above mentioned assessment and plan was discussed by me with the admitting medicine resident. The medicine team assigned to the patient by medicine admitting resident will be following up the patientfrom now onwards on the floor. Trupti Cohen MD Internal Medicine Resident [facility] 09/09/2019 2:36 PM * Kathie Mckeon RN - 09/09/2019 10:[address] garza called with blood sugar 202, no orders received. * Jacey Murray RN - 09/09/2019 9:[address] Garza notified that patient received 5 units of Humalog insulin SubQU route as ordered for glucose of 214. Dr. Garza verified that correct medication and dose was given * VERONICA KINNEY - 09/09/2019 8:27 AM EST Physical Therapy DATE: 09/09/2019 NAME: Otilio Suarez : 1955 Patient not seen this date for Physical Therapy due to: [] Blood transfusion in progress [] Hemodialysis [] Patient Declined [] Spine Precautions [] Strict Bedrest [x] Surgery/ Procedure - Pt off unit for wound closure this am, PT to check back 09/10 [] Testing [] Other [] PT being discontinued at this time. Patient independent. No further needs. [] PT being discontinued at this time as the patient has been transferred to palliative care. No further needs. VERONICA KINNEY This treatment/evaluation completed by signing SPT. Signing PT agrees with treatmentand documentation. * Trupit Cohen MD - 09/09/2019 8:04 AM EST Critical Care Team - Daily Progress Note Date and time: 09/09/2019 8:04 AM Patient's name: Otilio Suarez Patient's account/billing number: [id number] Patient's Date of : 1955 Age: 63 y.o. Date of Admission: 09/06/2019 5:42 PM Length of stay during current admission: 3 Primary Care Physician: Bernie Guerra MD ICU Attending Physician: Dr. Stephanie Lion Code Status: Full Code Reason for ICU admission: necrotizing fascitis SUBJECTIVE: OVERNIGHT EVENTS: Patient is doing better, no acute events overnight. Patient continues to refuse BiPap at night. Patient to undergo surgery today. Mentation: alert and awake Fever:- Temp (24hrs), Av F (36.7 C), Min:97.2 F (36.2 C), Max:98.3 F (36.8 C) Secretions:none Blood pressure: 150s-160s/ 70s-80s Vasopressors:none Systolic (16hrs), Av , Min:122 , Max:167 Diastolic (16hrs), Av, Min:57, Max:140 Point of care ultrasound for IVC:not indicated Urine output in the last 24 hours: In: 954 [P.O.:480; I.V.:474] Out: 1625 [Urine:1625] Net since admission:+2926 Patient Vitals for the past 96 hrs (Last 3 readings): Weight 09/06/19 1815 272 lb 7.8 oz (123.6 kg) 09/06/19 1745 272 lb 7.8 oz (123.6 kg) AWAKE & FOLLOWING COMMANDS: [] No [x] Yes CURRENT VENTILATION STATUS: [] Ventilator [] BIPAP [x] Nasal Cannula- 5l/m [] Room Air SECRETIONS Amount: [] Small [] Moderate [] Large [] None Color: [] White [] Colored [] Bloody SEDATION: RAAS Score: [] Propofol gtt [] Versed gtt [] Ativan gtt [x] No Sedation PARALYZED: [x] No [] Yes DIARRHEA: [x] No [] Yes (C. Difficile status: [] positive [] negative [] pending) VASOPRESSORS: [x] No [] Yes If yes - [] Levophed [] Dopamine [] Vasopressin [] Dobutamine [] Phenylephrine [] Epinephrine CENTRAL LINES: [x] No [] Yes (Date of Insertion: ) If yes - [] Right IJ [] Left IJ [] Right Femoral [] Left Femoral [] Right Subclavian [] Left Subclavian FLYNN'S CATHETER: [x] No [] Yes (Date of Insertion: ) URINE OUTPUT: [x] Good [] Low [] Anuric OBJECTIVE: VITAL SIGNS: BP (!) 162/85 Pulse 86 Temp 98.3 F (36.8 C) (Axillary) Resp 21 Ht 6' 2 (1.88 m) Wt 272 lb 7.8 oz (123.6 kg) SpO2 93% BMI 34.99 kg/m Tmax over 24 hours: Temp (24hrs), Av F (36.7 C), Min:97.2 F (36.2 C), Max:98.3 F (36.8 C) Patient Vitals for the past 6 hrs: BP Temp Temp src Pulse Resp SpO2 09/09/19 0600 86 21 93 % 09/09/19 0500 79 21 93 % 09/09/19 0400 (!) 162/85 98.3 F (36.8 C) Axillary 73 18 92 % 09/09/19 0300 (!) 155/81 78 20 91 % Intake/Output Summary (Last 24 hours) at 09/09/2019 0804 Last data filed at 09/09/2019 0500 Gross per 24 hour Intake 2689 ml Output 2075 ml Net 614 ml Wt Readings from Last 2 Encounters: 09/06/19 272 lb 7.8 oz (123.6 kg) Body mass index is 34.99 kg/m . PHYSICAL EXAMINATION: General appearance - alert, well appearing, and in no distress Mental status - alert, oriented to person, place, and time Eyes - pupils equal and reactive, extraocular eye movements intact Ears - bilateral TM's and external ear canals normal Nose - normal and patent, no erythema, discharge or polyps Mouth - mucous membranes moist, pharynx normal without lesions Neck - supple, no significant adenopathy Chest - clear to auscultation, no wheezes, rales or rhonchi, symmetric air entry Heart - normal rate, regular rhythm, normal S1, S2, no murmurs, rubs, clicks or gallops Abdomen - soft, mild diffuse tenderness. Tympanic to percussion Neurological - alert, oriented, normal speech, no focal findings or movement disorder noted} Extremities - peripheral pulses normal, no pedal edema, no clubbing or cyanosis, left groin incision with surrounding cellulitis down medial thigh. Skin - normal coloration and turgor, no rashes, no suspicious skin lesions noted Any additional physical findings: MEDICATIONS: Scheduled Meds: sennosides-docusate sodium 2 tablet Oral Daily polyethylene glycol 17 g Oral Daily acetaminophen 1,000 mg Oral 3 times per day insulin lispro 0-12 Units Subcutaneous TID WC insulin lispro 0-6 Units Subcutaneous Nightly insulin glargine 10 Units Subcutaneous Nightly therapeutic multivitamin-minerals 1 tablet Oral Daily vitamin C 500 mg Oral Daily zinc sulfate 220 mg Oral Daily sodium hypochlorite Irrigation Daily sodium chloride flush 10 mL Intravenous 2 times per day clindamycin (CLEOCIN) IV 900 mg Intravenous Q8H levofloxacin 750 mg Intravenous Q24H vancomycin 1,500 mg Intravenous Q12H vancomycin (VANCOCIN) intermittent dosing (placeholder) Other RX Placeholder Continuous Infusions: dextrose dextrose sodium chloride sodium chloride 10 mL/hr at 09/08/19 1400 dextrose PRN Meds: oxyCODONE, 5 mg, Q6H PRN glucose, 15 g, PRN dextrose, 12.5 g, PRN glucagon (rDNA), 1 mg, PRN dextrose, 100 mL/hr, PRN glucose, 15 g, PRN dextrose, 12.5 g, PRN glucagon (rDNA), 1 mg, PRN dextrose, 100 mL/hr, PRN albuterol sulfate HFA, 2 puff, Q6H PRN sodium chloride flush, 10 mL, PRN magnesium hydroxide, 30 mL, Daily PRN ondansetron, 4 mg, Q6H PRN glucose, 15 g, PRN dextrose, 12.5 g, PRN glucagon (rDNA), 1 mg, PRN dextrose, 100 mL/hr, PRN VENT SETTINGS (Comprehensive) (if applicable): Vent Information Skin Assessment: Clean, dry, & intact Vent Type: Servo i Vent Mode: PRVC Pressure Support: 5 cmH20 FiO2 : 30 % PEEP/CPAP: 5 Additional Respiratory Assessments Pulse: 86 Resp: 21 SpO2: 93 % ABGs: Laboratory findings: Complete Blood Count: Recent Labs 09/07/1945009/08/1942009/09/19432 WBC 14.6* 9.6 8.6 HGB 11.6* 11.0* 11.7* HCT 34.4* 34.8* 34.8* PLT 131* 210 248 Last 3 Blood Glucose: Recent Labs 09/07/1945009/08/1942009/09/19432 GLUCOSE 225* 111* 181* PT/INR: No results found for: PROTIME, INR PTT: No results found for: APTT, PTT Comprehensive Metabolic Profile: Recent Labs 09/06/19222009/07/1945009/08/1942009/09/19432 NA 132* 132* 137 137 K 4.3 4.4 3.9 4.1 CL 99 99 105 101 CO2 22 21 19* 24 BUN 34* 33* 29* 22 CREATININE 1.22* 1.12 0.99 0.84 GLUCOSE 293* 225* 111* 181* CALCIUM 7.6* 7.5* 7.4* 7.9* PROT 5.6* -- -- -- LABALBU 2.6* -- -- -- BILITOT 0.64 -- -- -- ALKPHOS 72 -- -- -- AST 13 -- -- -- ALT 14 -- -- -- Magnesium: No results found for: MG Phosphorus: No results found for: PHOS Ionized Calcium: No results found for: CAION Urinalysis: Troponin: No results for input(s): TROPONINI in the last 72 hours. Microbiology: Cultures during this admission: Blood cultures: [] None drawn [x] Negative [] Positive (Details: ) Urine Culture: [] None drawn [x] Negative [] Positive (Details: ) Sputum Culture: [x] None drawn [] Negative [] Positive (Details: ) Endotracheal aspirate: [x] None drawn [] Negative [] Positive (Details: ) Other pertinent Labs: Left groin swab showed mixed tawnya, sensitivities not back Yet Tissue culture showed mixed bacterial normocytes, likely normal tawnya. Radiology/Imaging: Chest Xray (09/09/2019):not done ASSESSMENT: Principal Problem: Necrotizing fasciitis (HCC) Active Problems: Septic shock (HCC) Resolved Problems: * No resolved hospital problems. * PLAN: WEAN PER PROTOCOL: [] No [] Yes [x] N/A DISCONTINUE ANY LABS: [] No [x] Yes ICU PROPHYLAXIS: Stress ulcer: [] PPI Agent [] [id number] [] Sucralfate [x] Other:not indicated VTE: [] Enoxaparin [] Unfract. Heparin Subcut [x] EPC Cuffs- heparin held because of surgery. Will restart once ok with surgery. NUTRITION: [x] NPO [] Tube Feeding (Specify: ) [] TPN [] PO (Diet: Dietary Nutrition Supplements: Low Calorie High Protein Supplement Diet NPO, After Midnight Exceptions are: Sips with Meds) HOME MEDICATIONS RECONCILED: [] No [x] Yes INSULIN DRIP: [x] No [] Yes CONSULTATION NEEDED: [] No [x] Yes FAMILY UPDATED: [x] No [] Yes TRANSFER OUT OF ICU: [] No [x] Yes ADDITIONAL PLAN: NEURO: History of ETOH abuse -currently not a drinker - AO x 3 - Neuro checks - Analgesia CV: PMH CAD -on heparin, will hold for now given surgery PM HTN -currently normotensive -resume home meds if needed - BP and HR stable - Continue to monitor PULM: COPD current smoker 1ppd -recommend cessation -aerosols prn -5lpm of oxygen via nasal cannula Tobacco abuse -recommend cessation - No respiratory distress - Encourage frequent pulmonary toilet with IS, deep breathing / coughing exercises when appropriate GI/DVT PROPHYLAXIS: DVT ppx: held due to surgery NPO for now RENAL: DM2 with hyperglycemia Insulin drip discontinued on 09/08 Patient received lantus 10 units for bridging. THANG -resolved ID/ HEME: Necrotizing fascitis LLE -General surgery did I&D emergently on 09/06 - repeat surgery for approximation to be done on 09/09. -Patient going to the OR. -levaquin, clindamycin - vanc discontinued on 09/09 -WBC 14.3, CRP 237.9 - Afebrile Fluids:NS @10ml/h Feeding:held because of surgery Analgesics:tylenol and roxicodone Sedation:none DVT Prophylaxis: epc cuffs, heparin held because of surgery Mobilization:pt/ot following Head Up:yes GI Prophylaxis: Not indicated Glycemic Control:lantus 10 and ISS. Received 9 units of lispro in 24 hours Spontaneous breathing trial:NA Bowel management:milk of mag, glycolax, senna-s Indwelling catheter:2 PIV. Trupti Cohen M.D. Critical care resident, Department of Internal Medicine/ Critical care [facility], [facility]) 09/09/2019, 8:04 AM Associated attestation - Jeri Lion MD - 09/09/2019 7:19 PM EST Attending Physician Statement I have discussed the case of Otilio Suarez, including pertinent history and exam findings with the resident/fellow/RESTAURANT INSPECTOR/PA. I have seen and examined the patient and the anderson elements of the encounter have been performed by me. I agree with the assessment, plan and orders as documented by the resident/fellow/RESTAURANT INSPECTOR/PA With changes made to the note as needed. Pt was seen during rounds. Review of Systems: In addition to the pertinent positives and negatives as stated within HPI and the review of systemsas documented in their notes, all other systems were reviewed when able to and are reported negative. Blood sugars are acceptable Had surgery done today Anemia stable Patient is on Eliquis Physical therapy and Occupational Therapy to evaluate and treat patient We will transfer the patient to a monitored bed We will follow the patient from pulmonary standpoint for COPD Jeri Lion 09/09/2019 7:18 PM * Frances Moreno DO - 09/09/2019 5:54 AM EST General Surgery: Daily Progress Note PATIENT NAME: Otilio Suarez TODAY'S DATE: 09/09/2019, 5:54 AM CC: Necrotizing fascitis SUBJECTIVE: Pt seen and examined at bedside. Doing ok this morning. Pain diminished and manageable., celluliticchanges stable and receding in areas along left medial thigh. Afebrile. Glucose staying persistently in the 180-240 range overnight. Denies nausea, vomiting. Patient states he has not had a bowel movement since Thanks[place] and is only occasionally passing flatus.Per RN pt is having desaturations during sleeping with lows in/around 40's. OBJECTIVE: VITALS: BP (!) 162/85 Pulse 73 Temp 98.3 F (36.8 C) (Axillary) Resp 18 Ht 6' 2 (1.88 m) Wt 272 lb 7.8 oz (123.6 kg) SpO2 92% BMI 34.99 kg/m INTAKE/OUTPUT: Intake/Output Summary (Last 24 hours) at 09/09/2019 0554 Last data filed at 09/09/2019 0400 Gross per 24 hour Intake 2689 ml Output 1625 ml Net 1064 ml PHYSICAL EXAM: General Appearance: awake, alert, oriented, in no acute distress HEENT: Normocephalic, atraumatic, mucus membranes moist Heart: Heart regular rate and rhythm Lungs: No respiratory distress, equal chest wall motion bilaterally Abdomen: Soft, non distended, non tender to palpation. Incision: Left groin incision with surrounding cellulitis down medial thigh - which improved from yesterday. No drainage noted. Healthy muscle of groin noted. No signs of worsening infection at this time. Extremities: No cyanosis, pitting edema, rashes noted. Data: CBC with Differential: Lab Results Component Value Date WBC 8.6 09/09/2019 RBC 3.95 09/09/2019 HGB 11.7 09/09/2019 HCT 34.8 09/09/2019 PLT 248 09/09/2019 MCV 88.1 09/09/2019 MCH 29.6 09/09/2019 MCHC 33.6 09/09/2019 RDW 12.1 09/09/2019 LYMPHOPCT 17 09/09/2019 MONOPCT 9 09/09/2019 BASOPCT 1 09/09/2019 MONOSABS 0.81 09/09/2019 LYMPHSABS 1.49 09/09/2019 EOSABS 0.29 09/09/2019 BASOSABS 0.04 09/09/2019 DIFFTYPE NOT REPORTED 09/09/2019 BMP: Lab Results Component Value Date NA 137 09/09/2019 K 4.1 09/09/2019 CL 101 09/09/2019 CO2 24 09/09/2019 BUN 22 09/09/2019 LABALBU 2.6 09/06/2019 CREATININE 0.84 09/09/2019 CALCIUM 7.9 09/09/2019 GFRAA >60 09/09/2019 LABGLOM >60 09/09/2019 GLUCOSE 181 09/09/2019 Radiology Review: ASSESSMENT: Active Hospital Problems Diagnosis Date Noted Necrotizing fasciitis (HCC) [M72.6] 09/07/2019 Septic shock (HCC) [A41.9, R65.21] 09/06/2019 63 y.o. male with necrotizing fasciitis of left groin 1. Uncontrolled type 2 diabetes Plan: 1. Ok for carb controlled diet. Recommend protein shakes 2. Initiate bowel regimen of senna-docusate, miralax scheduled 3. Recommend tight glucose control <180 4. Pt ok for anticoagulation from surgery standpoint 5. Patient ok to be up out of bed and in chair, recommend at least TID 6. Pt to OR today for wound closure vs. Wound vac 7. Continue abx therapy: Levaquin, clindamycin, vancomcyin 8. Medical management per primary team. Will follow along Associated attestation - Lemuel Diaz DO - 09/09/2019 6:22 AM EST Attending Supervising Physician s Attestation Statement I was present with the resident physician during the history and exam. I discussed the findings andplans with the resident physician and agree as documented in his note Wound clean. Plan approximation over drain this am. Sugars controlled wbc nl. No induration slight erythema. Questions answered/consent signed & witnessed. * Chela Villagomez, OT - 09/08/2019 3:41 PM EST [facility] Occupational Therapy Not Seen Note DATE: 09/08/2019 Name: Otilio Suarez : 1955 Patient not available for Occupational Therapy due to: [] Testing: [] Hemodialysis [] Blood Transfusion in Progress []Refusal by Patient: [] Surgery/Procedure: [] Strict Bedrest [] Sedation [] Spine Precautions [] Pt being transferred to palliative care at this time. Spoke with pt/family and OT services to bedefered. [] Pt independent with functional mobility and functional tasks. Pt with no OT acute care needs at this time, will defer OT eval. [x] Other: patient planning to go to OR tomorrow for possible wound vac, Next Scheduled Treatment: Will ck post op, 09/09/12 as appropriate/able Chela Villagomez OT * Trupti Cohen MD - 09/08/2019 12:19 PM EST Critical Care Team - Daily Progress Note Date and time: 09/08/2019 12:20 PM Patient's name: Otilio Suarez Patient's account/billing number: [id number] Patient's Date of : 1955 Age: 63 y.o. Date of Admission: 09/06/2019 5:42 PM Length of stay during current admission: 2 Primary Care Physician: Bernie Guerra MD ICU Attending Physician: Code Status: Full Code Reason for ICU admission: necrotizing fascittis SUBJECTIVE: OVERNIGHT EVENTS: Patient is doing better. No acute events overnight. Mentation: alert and awake Fever:- Temp (24hrs), Av.3 F (37.4 C), Min:97.9 F (36.6 C), Max:100.9 F (38.3 C) Secretions:none Blood pressure: stable Vasopressors:none Systolic (16hrs), Av , Min:121 , Max:164 Diastolic (16hrs), Av, Min:64, Max:109 Point of care ultrasound for IVC:none Urine output in the last 24 hours: In: 3643 [P.O.:480; I.V.:3163] Out: 1810 [Urine:1810] Patient Vitals for the past 96 hrs (Last 3 readings): Weight 09/06/19 1815 272 lb 7.8 oz (123.6 kg) 09/06/19 1745 272 lb 7.8 oz (123.6 kg) AWAKE & FOLLOWING COMMANDS: [] No [] Yes CURRENT VENTILATION STATUS: [] Ventilator [] BIPAP [x] Nasal Cannula [] Room Air SECRETIONS Amount: [] Small [] Moderate [] Large [x] None Color: [] White [] Colored [] Bloody SEDATION: RAAS Score: [] Propofol gtt [] Versed gtt [] Ativan gtt [x] No Sedation PARALYZED: [x] No [] Yes DIARRHEA: [x] No [] Yes (C. Difficile status: [] positive [] negative [] pending) VASOPRESSORS: [x] No [] Yes If yes - [] Levophed [] Dopamine [] Vasopressin [] Dobutamine [] Phenylephrine [] Epinephrine CENTRAL LINES: [x] No [] Yes (Date of Insertion: ) If yes - [] Right IJ [] Left IJ [] Right Femoral [] Left Femoral [] Right Subclavian [] Left Subclavian FLYNN'S CATHETER: [] No [x] Yes (Date of Insertion: ) URINE OUTPUT: [x] Good [] Low [] Anuric OBJECTIVE: VITAL SIGNS: BP (!) 161/72 Pulse 79 Temp 97.9 F (36.6 C) (Axillary) Resp 25 Ht 6' 2 (1.88 m) Wt 272 lb 7.8 oz (123.6 kg) SpO2 93% BMI 34.99 kg/m Tmax over 24 hours: Temp (24hrs), Av.3 F (37.4 C), Min:97.9 F (36.6 C), Max:100.9 F (38.3 C) Patient Vitals for the past 6 hrs: BP Temp Temp src Pulse Resp SpO2 09/08/19 1000 (!) 161/72 79 25 93 % 09/08/19 0900 (!) 162/105 97.9 F (36.6 C) Axillary 81 22 93 % 09/08/19 0800 (!) 148/83 81 22 95 % Intake/Output Summary (Last 24 hours) at 09/08/2019 1220 Last data filed at 09/08/2019 1000 Gross per 24 hour Intake 3883 ml Output 2095 ml Net 1788 ml Wt Readings from Last 2 Encounters: 09/06/19 272 lb 7.8 oz (123.6 kg) Body mass index is 34.99 kg/m . PHYSICAL EXAMINATION: General appearance - alert, well appearing, and in no distress Mental status - alert, oriented to person, place, and time Eyes - pupils equal and reactive, extraocular eye movements intact Ears - bilateral TM's and external ear canals normal Nose - normal and patent, no erythema, discharge or polyps Mouth - mucous membranes moist, pharynx normal without lesions Neck - supple, no significant adenopathy Chest - clear to auscultation, no wheezes, rales or rhonchi, symmetric air entry Heart - normal rate, regular rhythm, normal S1, S2, no murmurs, rubs, clicks or gallops Abdomen - soft, nontender, nondistended, no masses or organomegaly Neurological - alert, oriented, normal speech, no focal findings or movement disorder noted} Extremities - peripheral pulses normal, no pedal edema, no clubbing or cyanosis Skin - normal coloration and turgor, no rashes, no suspicious skin lesions noted MEDICATIONS: Scheduled Meds: acetaminophen 1,000 mg Oral 3 times per day metoclopramide 10 mg Intravenous Q6H therapeutic multivitamin-minerals 1 tablet Oral Daily vitamin C 500 mg Oral Daily zinc sulfate 220 mg Oral Daily [Held by provider] heparin (porcine) 5,000 Units Subcutaneous 3 times per day sodium hypochlorite Irrigation Daily sodium chloride flush 10 mL Intravenous 2 times per day clindamycin (CLEOCIN) IV 900 mg Intravenous Q8H levofloxacin 750 mg Intravenous Q24H vancomycin 1,500 mg Intravenous Q12H vancomycin (VANCOCIN) intermittent dosing (placeholder) Other RX Placeholder Continuous Infusions: dextrose dextrose sodium chloride sodium chloride 125 mL/hr at 09/07/19 0915 dextrose PRN Meds: oxyCODONE, 5 mg, Q6H PRN glucose, 15 g, PRN dextrose, 12.5 g, PRN glucagon (rDNA), 1 mg, PRN dextrose, 100 mL/hr, PRN glucose, 15 g, PRN dextrose, 12.5 g, PRN glucagon (rDNA), 1 mg, PRN dextrose, 100 mL/hr, PRN albuterol sulfate HFA, 2 puff, Q6H PRN sodium chloride flush, 10 mL, PRN magnesium hydroxide, 30 mL, Daily PRN ondansetron, 4 mg, Q6H PRN glucose, 15 g, PRN dextrose, 12.5 g, PRN glucagon (rDNA), 1 mg, PRN dextrose, 100 mL/hr, PRN VENT SETTINGS (Comprehensive) (if applicable): Vent Information Skin Assessment: Clean, dry, & intact Vent Type: Servo i Vent Mode: PRVC Pressure Support: 5 cmH20 FiO2 : 30 % PEEP/CPAP: 5 Additional Respiratory Assessments Pulse: 79 Resp: 25 SpO2: 93 % ABGs: Laboratory findings: Complete Blood Count: Recent Labs 09/06/19222009/07/1945009/08/19 0421 WBC 14.3* 14.6* 9.6 HGB 11.8* 11.6* 11.0* HCT 36.0* 34.4* 34.8* PLT 160 131* 210 Last 3 Blood Glucose: Recent Labs 09/06/19222009/07/1945009/08/19 042 GLUCOSE 293* 225* 111* PT/INR: No results found for: PROTIME, INR PTT: No results found for: APTT, PTT Comprehensive Metabolic Profile: Recent Labs 09/06/19222009/07/1945009/08/19 042 NA 132* 132* 137 K 4.3 4.4 3.9 CL 99 99 105 CO2 22 21 19* BUN 34* 33* 29* CREATININE 1.22* 1.12 0.99 GLUCOSE 293* 225* 111* CALCIUM 7.6* 7.5* 7.4* PROT 5.6* -- -- LABALBU 2.6* -- -- BILITOT 0.64 -- -- ALKPHOS 72 -- -- AST 13 -- -- ALT 14 -- -- Magnesium: No results found for: MG Phosphorus: No results found for: PHOS Ionized Calcium: No results found for: CAION Urinalysis: Troponin: No results for input(s): TROPONINI in the last 72 hours. Microbiology: Cultures during this admission: Blood cultures: [] None drawn [x] Negative [] Positive (Details: ) Urine Culture: [] None drawn [x] Negative [] Positive (Details: ) Sputum Culture: [x] None drawn [] Negative [] Positive (Details: ) Endotracheal aspirate: [x] None drawn [] Negative [] Positive (Details: ) Other pertinent Labs: tissue culture mixed bacteriaal morphocytes ASSESSMENT: Principal Problem: Necrotizing fasciitis (HCC) Active Problems: Septic shock (HCC) Resolved Problems: * No resolved hospital problems. * PLAN: WEAN PER PROTOCOL: [] No [x] Yes [] N/A DISCONTINUE ANY LABS: [x] No [] Yes ICU PROPHYLAXIS: Stress ulcer: [] PPI Agent [] [id number] [] Sucralfate [x] Other:not indicated VTE: [] Enoxaparin [] Unfract. Heparin Subcuheld due to surgery tomorrow [x] EPC Cuffs NUTRITION: [x] NPO [] Tube Feeding (Specify: ) [] TPN [] PO (Diet: DIET CARB CONTROL; Dietary Nutrition Supplements: Low Calorie High Protein Supplement Diet NPO, After Midnight Exceptions are: Sips with Meds) HOME MEDICATIONS RECONCILED: [] No [x] Yes INSULIN DRIP: [x] No [] Yes CONSULTATION NEEDED: [] No [x] Yes FAMILY UPDATED: [x] No [] Yes TRANSFER OUT OF ICU: [x] No [] Yes ADDITIONAL PLAN: NEURO: History of ETOH abuse -currently not a drinker - AO x 3 - Neuro checks - Analgesia CV: PMH CAD -on heparin, will hold for now given surgery PM HTN -currently normotensive -resume home meds if needed - BP and HR stable - Continue to monitor PULM: COPD current smoker 1ppd -recommend cessation -aerosols prn Tobacco abuse -recommend cessation - No respiratory distress - Encourage frequent pulmonary toilet with IS, deep breathing / coughing exercises when appropriate GI/DVT PROPHYLAXIS: DVT ppx: held due to surgery NPO for now RENAL: DM2 with hyperglycemia -On insulin gtt will transition to high dose sliding and restart home lantus. -will order ketones to r/o dka- likely acidotic 2/2 infection - Adequate urine output - Continue to monitor - IVF: NS @ 125 THANG -IVF ID/ HEME: Necrotizing fascitis LLE -General surgery consult plan to take for I&D emergently on 09/06 -levaquin, clindamycin - vanc discontinued on 09/08 -WBC 14.3, CRP 237.9 - Afebrile Fluids:125ml/hr NS Feeding:NPO for durgery Analgesics:fentanyl Sedation:not required DVT Prophylaxis: held due to surgery tomorrow, right now on EPC cuffs Mobilization:pt ot following Head Up:yes GI Prophylaxis: Not indicated Glycemic Control:insulin drip switched to ISS Spontaneous breathing trial:na Bowel management:milk of mag Indwelling catheter:d/c flynn, PIV 2 Trupti Noel, M.D. Critical care resident, Department of Internal Medicine/ Critical care [facility], [facility]) 09/08/2019, 12:20 PM Associated attestation - Jeri Lion MD - 09/08/2019 10:33 PM EST Attending Physician Statement I have discussed the case of Otilio Suarez, including pertinent history and exam findings with the resident/fellow/RESTAURANT INSPECTOR/PA. I have seen and examined the patient and the anderson elements of the encounter have been performed by me. I agree with the assessment, plan and orders as documented by the resident/fellow/RESTAURANT INSPECTOR/PA With changes made to the note as needed. Pt was seen during rounds. Review of Systems: In addition to the pertinent positives and negatives as stated within HPI and the review of systemsas documented in their notes, all other systems were reviewed when able to and are reported negative. Patient with no fever On 4 L oxygen by nasal cannula Anemia stable Improving renal function Discontinue Flynn catheter Patient to have surgery tomorrow On heparin Discontinue vancomycin Total critical care time caring for this patient with life threatening, unstable organ failure, including direct patient contact, management of life support systems, review of data including imaging and labs, discussions with other team members and physicians at least 30 Min so far today, excludingprocedures. Jeri Lion 09/08/2019 10:30 PM * Bee Bunch DO - 09/08/2019 11:19 AM EST Spoke with patient and at bedside about procedure tomorrow. Plan to take patient to the operating room for primary closure of wound from necrotizing fasciitis surgery, possible debridement, possible wound vac placement. Questions and concerns were addressed and a formal written consent was obtained and placed in patient chart. * Frances Moreno DO - 09/08/2019 6:04 AM EST General Surgery: Daily Progress Note PATIENT NAME: Otilio Suarez TODAY'S DATE: 09/08/2019, 6:04 AM CC: Necrotizing fascitis SUBJECTIVE: Pt seen and examined at bedside. Doing ok this morning. Pain tolerable. Afebrile. Glucose controlled. Denies nausea, vomiting. OBJECTIVE: VITALS: BP (!) 164/72 Pulse 80 Temp 98.5 F (36.9 C) (Axillary) Resp 20 Ht 6' 2 (1.88 m) Wt 272 lb 7.8 oz (123.6 kg) SpO2 95% BMI 34.99 kg/m INTAKE/OUTPUT: Intake/Output Summary (Last 24 hours) at 09/08/2019 0604 Last data filed at 09/08/2019 0400 Gross per 24 hour Intake 4152 ml Output 1950 ml Net 2202 ml PHYSICAL EXAM: General Appearance: awake, alert, oriented, in no acute distress HEENT: Normocephalic, atraumatic, mucus membranes moist Heart: Heart regular rate and rhythm Lungs: No respiratory distress, equal chest wall motion bilaterally Abdomen: Soft, non distended, non tender to palpation. Incision: Left groin incision with surrounding cellulitis down medial thigh - which improved from yesterday. No drainage noted. Healthy muscle of groin noted. No signs of worsening infection at this time. Extremities: No cyanosis, pitting edema, rashes noted. Data: CBC with Differential: Lab Results Component Value Date WBC 9.6 09/08/2019 RBC 3.74 09/08/2019 HGB 11.0 09/08/2019 HCT 34.8 09/08/2019 PLT 210 09/08/2019 MCV 93.0 09/08/2019 MCH 29.4 09/08/2019 MCHC 31.6 09/08/2019 RDW 12.0 09/08/2019 LYMPHOPCT 19 09/08/2019 MONOPCT 9 09/08/2019 BASOPCT 0 09/08/2019 MONOSABS 0.82 09/08/2019 LYMPHSABS 1.79 09/08/2019 EOSABS 0.15 09/08/2019 BASOSABS <0.03 09/08/2019 DIFFTYPE NOT REPORTED 09/08/2019 BMP: Lab Results Component Value Date NA 137 09/08/2019 K 3.9 09/08/2019 CL 105 09/08/2019 CO2 19 09/08/2019 BUN 29 09/08/2019 LABALBU 2.6 09/06/2019 CREATININE 0.99 09/08/2019 CALCIUM 7.4 09/08/2019 GFRAA >60 09/08/2019 LABGLOM >60 09/08/2019 GLUCOSE 111 09/08/2019 Radiology Review: ASSESSMENT: Active Hospital Problems Diagnosis Date Noted Necrotizing fasciitis (HCC) [M72.6] 09/07/2019 Septic shock (HCC) [A41.9, R65.21] 09/06/2019 63 y.o. male with necrotizing fasciitis of left groin 1. Uncontrolled type 2 diabetes Plan: 1. Ok for carb controlled diet. Recommend protein shakes 2. Ok to restart anticoagulation 3. Recommend tight glucose control <180 4. Ok to discontinue insulin gtt and transition to long acting insulin w/ meal coverage 5. Patient ok to be up out of bed and in chair, recommend at least TID 6. Recommend PO pain medication to be given 30 min prior to dressing changes 7. Recommend discontinue flynn catheter today 8. Continue abx therapy: Levaquin, clindamycin, vancomcyin 9. BID dressing change with 0.125% dakin solution and saline. 10. Medical management per primary team. Will follow along Associated attestation - Lemuel Diaz DO - 09/08/2019 6:22 AM EST Attending Supervising Physician s Attestation Statement I was present with the resident physician during the history and exam. I discussed the findings andplans with the resident physician and agree as documented in his note Wound is clean throughout. Erythema nearly resolved , glucose 111 this am. Ambulate. Plan wound approximation 09/09 over drain. * Sanjay Reilly MD - 09/07/2019 6:03 PM EST Critical Care Team - Daily Progress Note Date and time: 09/07/2019 6:03 PM Patient's name: Otilio Suarez Patient's account/billing number: [id number] Patient's Date of : 1955 Age: 63 y.o. Date of Admission: 09/06/2019 5:42 PM Length of stay during current admission: 1 Primary Care Physician: Bernie Guerra MD ICU Attending Physician: Dr. Lion Code Status: Full Code Reason for ICU admission: No chief complaint on file. Subjective: OVERNIGHT EVENTS: Patient seen and examined. Overnight history discussed with nursing staff. Afebrile, vital signs stable. Postop day 0. AWAKE & FOLLOWING COMMANDS: [] No [x] Yes CURRENT VENTILATION STATUS: [] Ventilator [] BIPAP [x] Nasal Cannula [] Room Air IF INTUBATED, ET TUBE MARKING AT LOWER LIP: cms SECRETIONS Amount: [] Small [] Moderate [] Large [x] None Color: [] White [] Colored [] Bloody SEDATION: RAAS Score: [] Propofol gtt [] Versed gtt [] Ativan gtt [x] No Sedation PARALYZED: [x] No [] Yes REVIEW OF SYSTEMS: Constitutional: Negative for Fever, chills Eyes: Negative for visual changes, diplopia ENT: Negative for mouth sores, sore throat. Cardiovascular: Negative for lightheadedness ,chest pain, palpitations Respiratory:Negative for Shortness of breath,cough or wheezing. Gastrointestinal: Negative for nausea/vomiting, change in bowel habits, abdominal pain Genitourinary:Negative for change in bladder habits, dysuria, hematuria. Musculoskeletal: Negative for joint pain Neurological: Negative for headache, change in muscle strength numbness/tingling OBJECTIVE: VITAL SIGNS: BP (!) 143/79 Pulse 89 Temp 100.6 F (38.1 C) (Axillary) Resp 22 Ht 6' 2 (1.88 m) Wt 272 lb 7.8 oz (123.6 kg) SpO2 92% BMI 34.99 kg/m Tmax over 24 hours: Temp (24hrs), Av.9 F (37.2 C), Min:97.9 F (36.6 C), Max:100.9 F (38.3 C) Patient Vitals for the past 8 hrs: BP Temp Temp src Pulse Resp SpO2 09/07/19 1700 (!) 143/79 89 22 92 % 09/07/19 1600 132/77 100.6 F (38.1 C) Axillary 94 23 91 % 09/07/19 1500 132/72 96 24 92 % 09/07/19 1400 (!) 113/56 100.9 F (38.3 C) Axillary 98 24 94 % 09/07/19 1300 (!) 148/82 100 23 93 % 09/07/19 1200 131/85 100.6 F (38.1 C) Axillary 99 26 95 % 09/07/19 1100 134/79 99 20 93 % Intake/Output Summary (Last 24 hours) at 09/07/2019 1803 Last data filed at 09/07/2019 1700 Gross per 24 hour Intake 3241 ml Output 1960 ml Net 1281 ml Date 09/07/19 0000 - 09/07/19 2359 Shift 8420-3389 3268-1214 0915-5579 24 Hour Total INTAKE P.O.(mL/kg/hr) 240(0.2) 240 I.V.(mL/kg) 1255(10.2) 1079(8.7) 667(5.4) 3001(24.3) Shift Total(mL/kg) 1255(10.2) 1319(10.7) 667(5.4) 3241(26.2) OUTPUT Urine(mL/kg/hr) 490(0.5) 615(0.6) 225 1330 Shift Total(mL/kg) 490(4) 615(5) 225(1.8) 1330(10.8) Weight (kg) 123.6 123.6 123.6 123.6 Wt Readings from Last 3 Encounters: 09/06/19 272 lb 7.8 oz (123.6 kg) Body mass index is 34.99 kg/m . PHYSICAL EXAM: Constitutional: Alert and oriented x3 HEENT: PERRLA, EOMI, sclera clear, anicteric Respiratory: clear to auscultation, no wheezes or rales and unlabored breathing. Cardiovascular: regular rate and rhythm, normal S1, S2, no murmur noted and 2+ pulses throughout Abdomen: soft, nontender, nondistended, no masses or organomegaly NEUROLOGIC: Awake, alert, oriented to name, place and time. Cranial nerves II- XII are grossly intact. Motor is 5 out of 5 bilaterally. Sensory is intact. Extremities: peripheral pulses normal, no pedal edema, large area of induration and erythema on proximal left lower extremity with extension just into theperineum, spares the scrotum Any additional physical findings: MEDICATIONS: Scheduled Meds: metoclopramide 10 mg Intravenous Q6H therapeutic multivitamin-minerals 1 tablet Oral Daily vitamin C 500 mg Oral Daily zinc sulfate 220 mg Oral Daily heparin (porcine) 5,000 Units Subcutaneous 3 times per day sodium hypochlorite Irrigation Daily sodium chloride flush 10 mL Intravenous 2 times per day clindamycin (CLEOCIN) IV 900 mg Intravenous Q8H levofloxacin 750 mg Intravenous Q24H vancomycin 1,500 mg Intravenous Q12H vancomycin (VANCOCIN) intermittent dosing (placeholder) Other RX Placeholder Continuous Infusions: insulin 2.37 Units/hr (09/07/19 1700) dextrose sodium chloride sodium chloride 125 mL/hr at 09/07/19 0915 dextrose PRN Meds: glucose, 15 g, PRN dextrose, 12.5 g, PRN glucagon (rDNA), 1 mg, PRN dextrose, 100 mL/hr, PRN albuterol sulfate HFA, 2 puff, Q6H PRN sodium chloride flush, 10 mL, PRN magnesium hydroxide, 30 mL, Daily PRN ondansetron, 4 mg, Q6H PRN glucose, 15 g, PRN dextrose, 12.5 g, PRN glucagon (rDNA), 1 mg, PRN dextrose, 100 mL/hr, PRN fentanNYL, 50 mcg, Q2H PRN SUPPORT DEVICES: [] Ventilator [] BIPAP [x] Nasal Cannula [] Room Air VENT SETTINGS (Comprehensive) (if applicable): ABGs: No results found for: PHART, PH, BGO7TJS, PCO2, PO2ART, PO2, DJU7ELL, HCO3, BEART, BE, THGBART, THB, LFL1CWO, N3FEMKBT, O2SAT, FIO2 Lactic Acid: Lab Results Component Value Date LACTA NOT REPORTED 09/06/2019 DATA: Complete Blood Count: Recent Labs 09/06/19 2221 09/07/19 0451 WBC 14.3* 14.6* HGB 11.8* 11.6* MCV 90.9 86.9 PLT 160 131* RBC 3.96* 3.96* HCT 36.0* 34.4* MCH 29.8 29.3 MCHC 32.8 33.7 RDW 11.9 12.0 MPV 12.0 12.8 PT/INR: No results found for: PROTIME, INR PTT: No results found for: APTT, PTT Basal Metabolic Profile: Recent Labs 09/06/19222009/07/19 0451 NA 132* 132* K 4.3 4.4 BUN 34* 33* CREATININE 1.22* 1.12 CL 99 99 CO2 22 21 Magnesium: No results found for: MG Phosphorus: No results found for: PHOS S. Calcium: Recent Labs 09/07/19450 CALCIUM 7.5* S. Ionized Calcium:No results for input(s): IONCA in the last 72 hours. Urinalysis: No results found for: NITRU, COLORU, PHUR, LABCAST, WBCUA, RBCUA, MUCUS, TRICHOMONAS, YEAST, BACTERIA, CLARITYU, SPECGRAV, LEUKOCYTESUR, UROBILINOGEN, BILIRUBINUR, BLOODU, GLUCOSEU, KETUA, AMORPHOUS CARDIAC ENZYMES: No results for input(s): CKMB, CKMBINDEX, TROPONINI in the last 72 hours. Invalid input(s): CKTOTAL;3 BNP: No results for input(s): BNP in the last 72 hours. LFTS Recent Labs 09/06/192220 ALKPHOS 72 ALT 14 AST 13 BILITOT 0.64 LABALBU 2.6* AMYLASE/LIPASE/AMMONIA No results for input(s): AMYLASE, LIPASE, AMMONIA in the last 72 hours. Last 3 Blood Glucose: Recent Labs 09/06/19222009/07/19 045 GLUCOSE 293* 225* HgBA1c: No results found for: LABA1C TSH: No results found for: TSH ANEMIA STUDIES No results for input(s): LABIRON, TIBC, FERRITIN, ASWSMLBO34, FOLATE, OCCULTBLD in the last 72 hours. Cultures during this admission: Blood cultures: [] None drawn [] Negative [] Positive (Details: ) Urine Culture: [] None drawn [] Negative [] Positive (Details: ) Sputum Culture: [] None drawn [] Negative [] Positive (Details: ) Endotracheal aspirate: [] None drawn [] Negative [] Positive (Details: ) ASSESSMENT: Principal Problem: Necrotizing fasciitis (HCC) Active Problems: Septic shock (HCC) Resolved Problems: * No resolved hospital problems. * PLAN: NEURO: History of ETOH abuse -currently not a drinker - AO x 3 - Neuro checks - Analgesia CV: PMH CAD -on elliquis, will hold for now given surgery PM HTN -currently normotensive -resume home meds if needed - BP and HR stable - Continue to monitor PULM: COPD current smoker 1ppd -recommend cessation -aerosols prn Tobacco abuse -recommend cessation - No respiratory distress - Encourage frequent pulmonary toilet with IS, deep breathing / coughing exercises when appropriate GI/DVT PROPHYLAXIS: DVT ppx: held due to surgery NPO for now RENAL: DM2 with hyperglycemia -On insulin gtt will transition to high dose sliding -will order ketones to r/o dka- likely acidotic 2/2 infection - Adequate urine output - Continue to monitor - IVF: NS @ 125 THANG -IVF ID/ HEME: Necrotizing fascitis LLE -General surgery consult plan to take for I&D emergently on 09/06 -levaquin, vanc, clindamycin -WBC 14.3, CRP 237.9 - Afebrile MSK/ ORTHO: n/a PT/OT/ECLECTIC DOCTOR: - Evaluation and treatment when applicable DISPO: - When appropriate, await clinical improvement for transfer/ discharge 1. Feeding Diet: Diet NPO Effective Now 2. Fluids NS@125 3. Family updated 4. Analgesic fentanyl prn 5. Sedation na 6. Thrombo-prophylaxis []? Enoxaparin []? Unfract. Heparin Subcut []? EPC Cuffs per surgery ok to restart elliquis post op 7. Mobility pt/ot 8. Heads up yes 9. Ulcer prophylaxis []? PPI Agent []? [id number] []? Sucralfate []? Other: 10. Glycemic control high dose sliding scale 11. Spontaneous breathing trial na 12. Bowel regimen/urine output adequate 13. Indwelling catheter/lines iv 14. De-escalation none Sanjay Reilly M.D. Department of Internal Medicine/ Critical care [facility], [facility]) 09/07/2019, 6:03 PM Associated attestation - Jeri Lion MD - 09/07/2019 7:07 PM EST Attending Physician Statement I have discussed the case of Otilio Suarez, including pertinent history and exam findings with the resident/fellow/RESTAURANT INSPECTOR/PA. I have seen and examined the patient and the anderson elements of the encounter have been performed by me. I agree with the assessment, plan and orders as documented by the resident/fellow/RESTAURANT INSPECTOR/PA With changes made to the note as needed. Pt was seen during rounds. Review of Systems: In addition to the pertinent positives and negatives as stated within HPI and the review of systemsas documented in their notes, all other systems were reviewed when able to and are reported negative. Please see my note also Jeri Lion 09/07/2019 7:07 PM * Dariela Steinberg RN - 09/07/2019 11:40 AM EST Inpatient Diabetes Education Type and Reason for Visit: Patient Education Met with patient and at bedside in ICU. Patient / stated use of insulin pens at home - long acting basaglar twice per day and BG checks 1 -2 times per day. Follows with Dr Guerra every 3 months and has had insulin adjustment at visits. Patient does admit to BG goes up high and hard to keepin target. Has general understanding of CHO food groups but also admits that patient likes to eat bigger portions. Reinforced need for tight BG control for best healing. Unsure at this time of home plan for insulins/ Medication. He will need reinforce of any plan changes. Verbally reviewed following information with patient Survival skills Diagnosis, A1C, Blood glucose targets, hypo and hyperglycemia, importance of home blood glucose monitoring, heathy eating plate method for CHO control portions, be active as recommended by health care providers, take medications oral and or insulin as directed Written educational materials provided _x__ Educational Booklets as available ADA Where Do I Begin? Living with Type 2 Diabetes _x__ Be safe with [place] teaching sheet / [place] EPA Disposal of Household Generated Sharps _x__ Type 2 Diabetes and Adding Insulin fold out with survival skills Contact number provided. Refer to Patient Education activity for more details. DARIELA STEINBERG RN CDE * Bee Bunch DO - 09/07/2019 6:14 AM EST General Surgery: Daily Progress Note PATIENT NAME: Otilio Suarez TODAY'S DATE: 09/07/2019, 6:14 AM CC: Necrotizing fascitis SUBJECTIVE: Pt seen and examined at bedside. Doing ok this morning. Pain tolerable. Afebrile. Glucose still high. Denies nausea, vomiting. OBJECTIVE: VITALS: BP 139/86 Pulse 95 Temp 98.2 F (36.8 C) (Oral) Resp 20 Ht 6' 2 (1.88 m) Wt 272 lb 7.8 oz (123.6 kg) SpO2 97% BMI 34.99 kg/m INTAKE/OUTPUT: Intake/Output Summary (Last 24 hours) at 09/07/2019 06 Last data filed at 09/07/2019 0400 Gross per 24 hour Intake 1255 ml Output 895 ml Net 360 ml PHYSICAL EXAM: General Appearance: awake, alert, oriented, in no acute distress HEENT: Normocephalic, atraumatic, mucus membranes moist Heart: Heart regular rate and rhythm Lungs: No respiratory distress, but slight expiratory wheezing. Abdomen: Soft, non distended, non tender to palpation. Incision: Left groin incision with surrounding cellulitis down medial thigh - which improved from yesterday. No drainage noted. Healthy muscle of groin noted. No signs of worsening infection at this time. Extremities: No cyanosis, pitting edema, rashes noted. Data: CBC with Differential: Lab Results Component Value Date WBC 14.6 09/07/2019 RBC 3.96 09/07/2019 HGB 11.6 09/07/2019 HCT 34.4 09/07/2019 PLT 131 09/07/2019 MCV 86.9 09/07/2019 MCH 29.3 09/07/2019 MCHC 33.7 09/07/2019 RDW 12.0 09/07/2019 LYMPHOPCT 12 09/07/2019 MONOPCT 9 09/07/2019 BASOPCT 0 09/07/2019 MONOSABS 1.34 09/07/2019 LYMPHSABS 1.73 09/07/2019 EOSABS 0.05 09/07/2019 BASOSABS <0.03 09/07/2019 DIFFTYPE NOT REPORTED 09/07/2019 BMP: Lab Results Component Value Date NA 132 09/07/2019 K 4.4 09/07/2019 CL 99 09/07/2019 CO2 21 09/07/2019 BUN 33 09/07/2019 LABALBU 2.6 09/06/2019 CREATININE 1.12 09/07/2019 CALCIUM 7.5 09/07/2019 GFRAA >60 09/07/2019 LABGLOM >60 09/07/2019 GLUCOSE 225 09/07/2019 Radiology Review: ASSESSMENT: Active Hospital Problems Diagnosis Date Noted Necrotizing fasciitis (HCC) [M72.6] 09/07/2019 Septic shock (HCC) [A41.9, R65.21] 09/06/2019 63 y.o. male with necrotizing fasciitis of left groin 1. Uncontrolled type 2 diabetes Plan: 1. Ok for carb controlled diet. Recommend protein shakes 2. Ok to restart anticoagulation 3. Recommend tight glucose control <180 4. Continue abx therapy: Levaquin, clindamycin, vancomcyin 5. BID dressing change with 0.125% dakin solution and saline. 6. Medical management per primary team. Will follow along Associated attestation - Lemuel Diaz DO - 09/07/2019 6:29 AM EST Attending Supervising Physician s Attestation Statement I was present with the resident physician during the history and exam. I discussed the findings andplans with the resident physician and agree as documented in her note Wound clean at dressing change. Will continue Dakin's dressing changes for now with eventual switchto VAC dressing. OK to restart anticoagulation. Needs tighter glycemic control. Start diet. * Benigno Crenshaw, [facility] - 09/06/2019 11:27 PM EST Pharmacy Note Vancomycin Consult Otilio Suarez is a 63 y.o. male started on Vancomycin for septic shock; consult received from Dr. Rocky Wray to manage therapy. Also receiving the following antibiotics: Levaquin/Cleocin. Patient Active Problem List Diagnosis Septic shock (HCC) Allergies: Pcn [penicillins] Temp max: 97.9 Recent Labs 09/06/192220 BUN 34* Recent Labs 09/06/192220 CREATININE 1.22* Recent Labs 12/03/19 2221 WBC 14.3* Intake/Output Summary (Last 24 hours) at 09/06/2019 2326 Last data filed at 09/06/2019 2130 Gross per 24 hour Intake Output 530 ml Net -530 ml Culture Date Source Results Ht Readings from Last 1 Encounters: 09/06/19 6' 2 (1.88 m) Wt Readings from Last 1 Encounters: 09/06/19 272 lb 7.8 oz (123.6 kg) Body mass index is 34.99 kg/m . Estimated Creatinine Clearance: 84 mL/min (A) (based on SCr of 1.22 mg/dL (H)). Goal Trough Level: 15-19 mcg/mL Assessment/Plan: Will initiate vancomycin 1500 mg IV every 12 hours. Timing of trough level will be determined basedon culture results, renal function, and clinical response. Thank you for the consult. Will continue to follow. Benigno Crenshaw Pharm.D. 09/06/2019 11:27 PM documented in this encounter Assessments Diagnosis Necrotizing fasciitis (HCC)- Primary Necrotizing fasciitis Septic shock (HCC) THANG (acute kidney injury) (HCC) Acute kidney failure, unspecified Hyponatremia Hyposmolality and/or hyponatremia Hyperlipidemia Other and unspecified hyperlipidemia Hypertension Unspecified essential hypertension Diabetes mellitus type 2, insulin dependent (HCC) Type II or unspecified type diabetes mellitus without mention of complication, not stated as uncontrolled Current smoker Tobacco use disorder Coronary artery disease Coronary atherosclerosis of unspecified type of vessel, nisqually or graft History of alcohol abuse Nondependent alcohol abuse, in remission Mild protein-calorie malnutrition (HCC) Malnutrition of mild degree Sleep apnea, obstructive - nightly CPAP Obstructive sleep apnea (adult) (pediatric) Normocytic anemia Anemia, unspecified Leukocytosis - Resolved Leukocytosis, unspecified Peripheral vascular disease (HCC) Peripheral vascular disease, unspecified Typical atrial flutter (HCC) Atrial flutter [place] gangrene Specified vascular disorder of male genital organs Bandemia Fever and chills Fever, unspecified Cellulitis and abscess of left leg Advance Directives No Advanced Directives Records FoundDocuments on File Type Date Recorded Patient Red Leader Expl anation Advance Directives and Living Will Power of Wearing Apparel Shaker Latest Code Status on File Code Status Date Activated Date Inactivated Comments Full Code 09/06/2019 5:58 PM Advance Directive Response Recorded Date/ Time Advance Directives No September 5:47pm Documents on File Type Date Recorded Patient Red Leader Expl anation Healthcare Power of Atty 04/06/2023 9:33 AM Healthcare Power of Atty 04/06/2023 Documents on File Type Date Recorded Patient Red Leader Expl anation Healthcare Power of Atty 04/06/2023 9:33 AM Healthcare Power of Atty 04/06/2023 Latest Code Status on File Code Status Date Activated Date Inactivated Comments Full Code 10/12/2023 11:45 AM Question Answer Comments Plan of Care: Code Status Discussion Completed Decision Maker: Patient Latest Code Status on File Code Status Date Activated Date Inactivated Comments Full Code 10/12/2023 11:45 AM Question Answer Comments Plan of Care: Code Status Discussion Completed Decision Maker: Patient Summary Purpose Family History No Family History Records FoundUnknown Family Member Name Dates Details Family history of diabetes m ellitus: Mother(V18.0, Z83.3) Status:Active Family history of cerebrovas cular accident (CVA): Mother(V17.1, Z82.3) Status:Active Family history of malignant neoplasm: Mother(V16.9, Z80.9) Status:Active Black lung disease: Father Status:Active Chief Complaint and Reason for Visit Chief Complaint T14.90XA Reason for Referral Specialty Diagnoses / Procedures Referred By Kathy farris Referred To Contact Diagnoses Syncope and collapse Procedures ECG 12 Lead Geovani Mack MD [address] [address] Referral ID Status Reason Start Date Expiration Date V isits Requested Visits Authorized [id number] Authorized 10/21/2023 10/20/2024 1 1 Specialty Diagnoses / Procedures Referred By Kathy farris Referred To Contact Cardiology Diagnoses Presence of other cardiac implants and grafts Syncope and collapse Procedures Cardiac device check - In Clinic Geovani Mack MD [address] [facility], [address] [address] Referral ID Status Reason Start Date Expiration Date Visits Requested Visits Authorized [id number] Pending Review Perform Procedure 06/24/2023 12/21/2023 1 1 Specialty Diagnoses / Procedures Referred By Contac t Referred To Contact Diagnoses Abnormal EKG Procedures ECG 12 Lead Geovani Mack MD [address] [facility], [address] [place] [address] Referral ID Status Reason Start Date Expiration Date V isits Requested Visits Authorized [id number] Pending Review 09/16/2023 09/15/2024 1 1 Specialty Diagnoses / Procedures Referred By Contac t Referred To Contact Cardiology Diagnoses Status post placement of implantable loop recorder Procedures Cardiac Device Check - In Clinic Geovani Mack MD [address] [facility], [address] [place] [address] Referral ID Status Reason Start Date Expiration Date Visits Requested Visits Authorized [id number] Pending Review Perform Procedure 3 09/15/2024 52 52 Specialty Diagnoses / Procedures Referred By Contac t Referred To Contact Cardiology Diagnoses Status post placement of implantable loop recorder Syncope and collapse Procedures Cardiac Device Check - Remote Geovani Mack MD [address] [facility], [address] [address] Referral ID Status Reason Start Date Expiration Date Visits Requested Visits Authorized [id number] Pending Review Perform Procedure 3 01/11/2024 52 52 Additional Source Comments Reason for Visit (unrecogniz ed section and content) Status Reason Specialty Diagnoses / Procedures Referre d By Contact Referred To Contact Diagnoses Septic shock (HCC) Septic Shock 2nd to Left Thigh abscess Jeri Lion MD [address] [address] [facility] Specialty Diagnoses / Procedures Referred By Contac t Referred To Contact Cardiology Diagnoses Status post placement of implantable loop recorder Syncope and collapse Procedures Cardiac Device Check - Remote Geovani Mack MD [address] [facility], [address] [address] Referral ID Status Reason Start Date Expiration Date Visits Requested Visits Authorized [id number] Pending Review Perform Procedure 3 01/11/2024 52 52 Reason Comments Other [facility] MACK LOOP RECORD ER IMPLANT/ICD-10 Syncope and collapse Reason Comments Follow-up [address] [facility] Specialty Diagnoses / Procedures Referred By Kathy farris Referred To Contact Cardiology Diagnoses Presence of other cardiac implants and grafts Syncope and collapse Procedures Cardiac device check - In Clinic Geovani Mack MD [address] [facility], [address] [place] [address] Referral ID Status Reason Start Date Expiration Date Visits Requested Visits Authorized [id number] Pending Review Perform Procedure 06/24/2023 12/21/2023 1 1 Referral ID Status Reason Start Date Expiration Date V isits Requested Visits Authorized [id number] Closed Perform Procedure 07/15/2023 01/11/2024 52 52 Reason Comments Follow-up 4 weeks Specialty Diagnoses / Procedures Referred By Kathy farris Referred To Contact Diagnoses Syncope and collapse Procedures ECG 12 Lead Geovani Mack MD [address] [facility], [address] [address] Referral ID Status Reason Start Date Expiration Date V isits Requested Visits Authorized [id number] Authorized 10/21/2023 10/20/2024 1 1 Specialty Diagnoses / Procedures Referred By Kathy farris Referred To Contact Cardiology Diagnoses Status post placement of implantable loop recorder Procedures Cardiac Device Check - In Clinic Geovani Mack MD [address] [facility], [facility] [address] [place] [address] Referral ID Status Reason Start Date Expiration Date Visits Requested Visits Authorized [id number] Pending Review Perform Procedure 3 09/15/2024 52 52 (unrecognized sect ion and content) No Status Records FoundNo Status Records FoundNo Status Records FoundNo Status Records FoundNo Status Records FoundNo Status Records FoundNo Status Records FoundNo Status Records FoundNo Status Records FoundNo Status Records Found INFORMATION SOURCE (unrecogn ized section and content) DATE CREATED AUTHOR 09/13/2019 [facility] DATE CREATED AUTHOR AUTHOR'S ORGANIZ ATION 10/04/2022 [facility] DATE CREATED AUTHOR AUTHOR'S ORGANIZ ATION 02/14/2023 [facility] DATE CREATED AUTHOR AUTHOR'S ORGANIZ ATION 03/25/2023 [facility] DATE CREATED AUTHOR AUTHOR'S ORGANIZ ATION 05/07/2023 [facility] DATE CREATED AUTHOR AUTHOR'S ORGANIZ ATION 06/25/2023 [facility] DATE CREATED AUTHOR AUTHOR'S ORGANIZ ATION 10/08/2023 [facility] DATE CREATED AUTHOR AUTHOR'S ORGANIZ ATION 10/17/2023 [facility] DATE CREATED AUTHOR AUTHOR'S ORGANIZ ATION 10/23/2023 [facility] DATE CREATED AUTHOR AUTHOR'S ORGANIZ ATION 11/19/2023 [facility] Care Teams (unrecognized sec tion and content) Team Status: Inactive Member Role Status Dates Bernie Guerra MD Primary Care Provider Active Ana Norris APRN Attending Provider Active Team Status: Active Member Role Status Dates Bernie Guerra MD Primary Care Provider Active [employer] Relationship Specialty Start Date End Date Hermilo Thorne MD [address] [place] [address] PCP - General 03/24/23 [employer] Relationship Specialty Start Date End Date Hermilo Thorne MD [address] [place] [address] PCP - General 03/24/23 [employer] Relationship Specialty Start Date End Date Hermilo Thorne MD [address] [place] [address] PCP - General 03/24/23 [employer] Relationship Specialty Start Date End Date Hermilo Thorne MD [address] [place] [address] PCP - General 03/24/23 [employer] Relationship Specialty Start Date End Date Hermilo Thorne MD [address] [facility] [address] [place] [address] PCP - General 03/24/23 [employer] Relationship Specialty Start Date End Date Hermilo Thorne MD [address] [facility] [address] [place] [id number] PCP - General 03/24/23 Geovani Mack MD [address] [facility] [place] [address] Consulting Physician Cardiology 09/16/23 [employer] Relationship Specialty Start Date End Date Hermilo Thorne MD [address] [facility] [address] [place] [address] PCP - General 03/24/23 Geovani Mack MD [address] [facility] [place] [address] Consulting Physician Cardiology 09/16/23 [employer] Relationship Specialty Start Date End Date Hermilo Thorne MD [address] [facility] [address] [place] [address] PCP - General 03/24/23 Geovani Mack MD [address] [facility] [place] [address] Consulting Physician Cardiology 09/16/23 [employer] Relationship Specialty Start Date End Date Hermilo Thorne MD [address] [facility] [address] [place] [address] PCP - General 03/24/23 Geovani Mack MD [address] [facility] [place] [address] Consulting Physician Cardiology 09/16/23 Nelda Jc, commercial loan officerOil Inspector 10/15/23 [employer] Relationship Specialty Start Date End Date Hermilo Thorne MD [address] [facility] [address] [place] [address] PCP - General 03/24/23 Geovani Mack MD [address] [facility], [facility] [address] [place] [address] Consulting Physician Cardiology 09/16/23 Nelda Jc RN Care Oil Inspector 10/15/23 [employer] Relationship Specialty Start Date End Date Bernie Guerra MD [address] [place] [id number] PCP - General Pediatrics 03/16/23 Goals (unrecognized section and content) Goals may be documented in a n alternate sectionNo Information No data available for this section No data available for this section No data available for this section No data available for this section No data available for this section No data available for this section FOR RECORDS PERTAINING TO PATIENTS WHO ARE OR HAVE BEEN ENROLLED IN A CHEMICAL DEPENDENCY/SUBSTANCEABUSE PROGRAM, SOME INFORMATION MAY BE OMITTED. This clinical summary was aggregated from multiple sources. Caution should be exercised in using it in the provision of clinical care. This summary normalizes information from multiple sources, and as a consequence, information in this document may materially change the coding, format and clinical context of patient data. In addition, data may be omitted in some cases. CLINICAL DECISIONS SHOULD BE BASED ON THE PRIMARY CLINICAL RECORDS. [facility]. provides no warranty or guarantee of the accuracy or completeness of information in this document.
[2023-11-25 07:48] LABS: Basophils Percent Auto 0.4 % (0.2-2.0); Eosinophils Absolute Auto 0.4 10^3/uL (0.0-0.7); Eosinophils Percent Auto 4.5 % (0.9-7.0); Hematocrit 32.1 % (42.0-54.0); Hemoglobin 9.7 g/dL (14.0-18.0); Immature Granulocytes Abs Auto 0.01 10^3/uL (0.00-0.03); Immature Granulocytes Pct Auto 0.1 % (0.0-0.5); Lymphocytes Absolute Auto 2.2 10^3/uL (1.2-3.8); Lymphocytes Percent Auto 28.5 % (20.5-60.0); Mean Corpuscular HGB Conc 30.2 g/dL (29.9-35.2); Mean Corpuscular Hemoglobin 27.9 pg (25.9-34.0); Mean Corpuscular Volume 92.2 fL (80.0-94.0); Mean Platelet Volume 10.8 fL (9.5-13.5); Monocytes Absolute Auto 0.6 10^3/uL (0.3-0.8); Monocytes Percent Auto 8.2 % (1.7-12.0); Neutrophils Absolute Auto 4.5 10^3/uL (1.4-6.5); Neutrophils Percent Auto 58.3 % (43.0-75.0); Platelet Count 214 10^3/uL (150-450); Red Blood Count 3.48 10^6/uL (4.70-6.10); Red Cell Distribution Width 13.5 % (11.0-15.0); White Blood Count 7.7 10^3/uL (4.0-11.0)
[2023-11-25 09:26] LABS: Estimated Average Glucose 183 mg/dL
[2023-11-25 11:28] LABS: Alanine Aminotransferase 14 U/L (16-63); Albumin Globulin Ratio 0.9; Albumin Level 2.9 g/dL (3.4-5.0); Alkaline Phosphatase 77 U/L (46-116); Anion Gap 13.3; Aspartate Amino Transferase 11 U/L (15-37); BUN Creatinine Ratio 32.2; Bilirubin Total 0.2 mg/dL (0.2-1.0); Calcium 8.4 mg/dL (8.5-10.1); Chloride 109 mmol/L (98-107); Estimated GFR (African America >60 (>=60); Estimated GFR (Non-African Ame >60 (>=60); Globulin 3.1 g/dL; Glucose 210 mg/dL (74-106); Potassium 4.3 mmol/L (3.5-5.1); Sodium 144 mmol/L (136-145); Thyroid Stimulating Hormone 0.984 uIU/mL (0.358-3.740)
== END 2023-11-25 02:21 | disposition home or self-care (01) ==
LOC: LAB 02:20
PROVIDERS: PCP Family Medicine; Visit Provider Nurse Practitioner Family
DX: Z79.01 Long term (current) use of anticoagulants (principal)
CPT/HCPCS: 36415; 80053; 82306; 83036; 84443; 85025

== ENCOUNTER 2023-12-30 02:06 | Outpatient (REF) | payer MEDICARE, MEDICAID, SELFPAY ==
--- OUTSIDE RECORDS SUMMARY | 2023-12-30 02:12 | XMS_ITS | CCD ---
Author Organization [facility] Care Team Providers Care [employer] Software Developer Name Role Phone Bernie Guerra Primary Care Provider [phone] JERI LION Admitting Unavailable ROSALIE WILDER Referring Unavailable LEMUEL DIAZ Consulting Unavailable BERNIE GUERRA Primary Care Unavailable SHAWN HEALY Attending Unavailable CHARLENE MEZA Consulting Unavailable JERI LION Consulting Unavailable MIGUEL HINSON Consulting Unavailable Ana Norris Admitting Unavailable Ana Norris Attending Unavailable Bernie Guerra Primary Care Unavailable MD Bernie Guerra Primary Care Provider HENOK Norris Attending Provider Ana Norris Unavailable HERMILO THORNE Primary Care Physician [phone] Sydney Alexander Unavailable Unavailable Chris Ibrahim Unavailable Unavailable FIDE ., DR RAE Lau Consulting Unavailable FIDE ., DR RAE Lau Attending Unavailable FIDE ., DR RAE Lau Admitting Unavailable CHARLIE, DR GIBBS Primary Care Unavailable JEM, DR MARIBEL Vaz Consulting UnavailDR BERNIE Ken V Consulting Unavailable SHAIKH Maki LIU Consulting Unavailable ABEBE ., NAKITA Attending Unavailable ABEBE ., NAKITA Admitting Unavailable ELIZALDE ., DR RAE Lau Consulting Unavailable MATI, DR AKHTAR Primary Care Unavailable WILVER MARTINEZ Consulting Unavailable BERNIE JC Consulting Unavailable SISTER, KEVIN Consulting Unavailable ABEBE ., NAKITA Consulting Unavailable DIAB ., CELESTE Consulting Unavailable [...] JULIAN Consulting Unavailable LUJAN, ERIC Consulting Unavailable FRANCES CHACON Consulting Unavailable MAREN, DR LILIA Valdez Consulting [...] PAY ., DR CORDERO Consulting Unavailable CARLITOS, JLUIAN Consulting Unavailable CRUZ, SANDRA Consulting Unavailable NADEEM, SANDRA Consulting Unavailable MAREN, DR LILIA Valdez Consulting Unavailable NADERER, DR CHRISTIE Arteaga Attending Unavailable NADERER, DR CHRISTIE Arteaga Admitting Unavailable MATI, DR AKHTAR Primary Care Unavailable NADERER, DR CHRISTIE Arteaga Consulting Unavailable PAY ., DR CORDERO Consulting Unavailable PAMELA ., KAYLEE LAU Consulting UnavailSARAH Pinto Consulting Unavailable SHANNON, KIKI Consulting Unavailable AHDOOT, CANDI Consulting Unavailable LUJAN, ERIC Consulting Unavailable FRIDA JACK Consulting Unavailable OROZCO, [place] Consulting Unavailable CHAPO, VALE Consulting Unavailable [place], Rugen M Unavailable Bernie Guerra Attending Unavailable CharlieBernie gilmore Primary Care Unavailable Charlie, Bernie Arteaga Admitting Unavailable Charlie, Bernie Arteaga Primary Care Unavailable CharlieBernie gilmore Attending Unavailable Bernie Guerra Admitting Unavailable Charlie, Bernie Arteaga Primary Care Unavailable Hue Monet Attending Unavailable Hue Monet Admitting Unavailable Bernie Guerra Attending Unavailable Charlie, Bernie Arteaga Primary Care Unavailable Charlie, Bernie Arteaga Admitting Unavailable Charlie, Bernie Arteaga Primary Care Unavailable Mohinder Orozco Attending Unavailable Mohinder Orozco Admitting Unavailable Charlie, Bernie Arteaga Primary Care Unavailable Mohinder Orozco Attending Unavailable Mohinder Orozco Admitting Unavailable Charlie, Bernie Arteaga Primary Care Unavailable Reshma Matt Attending Unavailable Reshma Matt Admitting Unavailable Charlie, Bernie Aretaga Attending Unavailable Charlie, Mario Primary Care Unavailable Hue Monet Attending Unavailable Hue Monet Admitting Unavailable Charlie, Mario Primary Care Unavailable Charlie, Bernie Arteaga Attending Unavailable Charlie, Bernie Arteaga Primary Care Unavailable Charlie, Mario Attending Unavailable Charlie, Mario Primary Care Unavailable Charlie, Mario Primary Care Unavailable Charlie, Bernie Arteaga Attending Unavailable Wills, Kamran Attending Unavailable Wills, Kamran Admitting Unavailable Charlie, Mario Primary Care Unavailable Charlie, Bernie Arteaga Primary Care Unavailable Rajabbik, Mhd Hashem Attending Unavailable Rajabbik, Mhd Hashem Admitting Unavailable Charlie, Mario Primary Care Unavailable Rajabbik, Mhd Hashem Attending Unavailable Rajabbik, Mhd Hashem Admitting Unavailable Mati, Dr. Hermilo Greco Primary Care Unavaila ble Mack, Dr. Geovani Posada Attending Unavailab le Mati, Dr. Hermilo Greco Primary Care Unavaila ble Mack, Dr. Geovani Posada Attending Unavailab le Mack, Dr. Geovani Posada Referring Unavailab le Mati, Dr. Hermilo Greco Primary Care Unavaila ble Mack, Dr. Geovani Posada Admitting Unavailab le Mack, Dr. Geoavni Posada Attending Unavailab le Mati Hermilo LEMONS Primary Care Provider Hermilo Thorne MD Primary Care Provider [phone] Geovani Mack MD Unavailable GEOVANI MACK Attending Unavailable Mati, Dr. Hermilo Greco Primary [facility] Unavaila ble GEOVANI MACK Attending Unavailable JAJA LEE Referring Unavailable Mati, Dr. Hermilo Greco Primary [facility] Unavaila ble Martinez GONZALEZ, Nelda Unavailable Unavailable ELSI MACKTO N Attending Unavailable HERMILO THORNE Primary Care Unavailable GEOVANI MACK N Attending Unavailable MATIHERMILO Arteaga Primary Care Unavailable MARTINA GEOVANI N Referring Unavailable MARTINA GEOVANI N Attending Unavailable HERMILO THORNE Primary Care Unavailable Bernie Guerra MD Primary Care Provider Geovani Mack MD Unavailable [phone] MARIBEL, ESTHER M Referring Unavailable MATI, RUGEN MABALAY Primary Care Unavailable MACK, GEOVANI N Admitting Unavailable MACK, GEOVANI N Attending Unavailable MARIBEL, ESTHER M Referring Unavailable MATI, RUGEN MABALAY Primary Care Unavailable MACK, GEOVANI N Referring Unavailable MATI, RUGEN MABALAY Primary Care Unavailable MACK, GEOVANI N Referring Unavailable MATI, RUGEN MABALAY Primary Care Unavailable MARIBEL, ESTHER M Referring Unavailable MATI, RUGEN MABALAY Primary Care Unavailable ESTHER LÓPEZ M Referring Unavailable MATI, RUGEN MABALAY Primary Care Unavailable MACK, GEOVANI N Referring Unavailable MATI, RUGEN MABALAY Primary Care Unavailable MARIBEL, ESTHER M Referring Unavailable MATI, RUGEN MABALAY Primary Care [...] GEOVANI N Referring Unavailable MATI, RUGEN MABALAY [facility] Unavailable STANG, Bushra L Attending Unavailable STANG, Bushra L Admitting Unavailable NONE, XXXX Referring Unavailable STANG, Bushra L Attending Unavailable STANG, Bushra L Admitting Unavailable NONE, XXXX Referring Unavailable STANG, Bushra L Attending Unavailable STANG, Bushra L Admitting Unavailable NONE, XXXX Referring Unavailable Jaja Lee Attending Unavaila ble NONE, XXXX Referring Unavailable Jaja Lee Attending Unavaila ble NONE, XXXX Referring Unavailable Jaja Lee Attending Unavaila ble NONE, XXXX Referring Unavailable Eboni, John S Admitting Unavailable [place], Lilia Consulting Unavailable Stephan QUINN Attending Unavailable [place], Lilia Consulting Unavailable [place], Lilia Consulting Unavailable [place], Lilia Consulting Unavailable [place], Lilia Consulting Unavailable [place], Lilia Consulting Unavailable [place], Lilia Consulting Unavailable [place], Lilia Consulting Unavailable [place], Lilia Consulting Unavailable Eboni, John S Attending Unavailable Beoni, John S Admitting Unavailable Mahesh LEMA Consulting Unavailable TOREY, Mahesh Johns Consulting Unavailable LEMA, Mahesh Johns Consulting Unavailable Eboni, John S Attending Unavailable [place], Lilia Consulting Unavailable Ayaan NAQVI Admitting Unavailable [place], Lilia Consulting Unavailable [place], Lilia Consulting Unavailable [place], Lilia Consulting Unavailable [place], Lilia Consulting Unavailable [place], Lilia Consulting Unavailable [place], Lilia Consulting Unavailable [place], Lilia Consulting Unavailable [place], Lilia Consulting Unavailable DO Tita Albright Attending Unavailable Harjit Doan Admitting Unavailable Jered Chavis Attending Unavailable Allergies Allergy Classification Reported Allergen(s) Allergy Type Date of Onset Reaction(s) Facility (4 sources) Penicillins; Translations: [penicillins] Propensity to adverse reactions to drug 8 [place], [place] (20 sources) HYDROmorphone; Translations: [hydromorphone] Drug Allergy 2 Unknown (qualifier value), Unknown [facility] (20 sources) Morphine; Translations: [morphine] Drug Allergy 2 Unknown (qualifier value), Unknown [facility] (10 sources) Penicillin; Translations: [penicillin] Drug Allergy 2 Unknown (qualifier value) [facility] (3 sources) HYDROmorphone; Translations: [Dilaudid] Drug Allergy 2 [facility] (1 source) Morphine Drug Allergy 2 [facility] (1 source) Penicillins; Translations: [Penicillins] Allergy to drug (finding) [place] [address] DO Work Phone: (1 source) Morphine Derivatives; Translations: [Morphine Derivatives] Allergy to drug (finding) [place] [address] DO Work Phone: (20 sources) Penicillins Drug Intolerance 8 Unknown [facility] Work Phone: (1 source) Penicillins Drug Intolerance 8 [facility] (1 source) ALLERGIES NOT ON FILE; Translations: [ALLERGIES NOT ON FILE] Propensity to adverse reactions (disorder) [facility] Medications Current Medications Medication Drug Class(es) Dates Sig (Normalized) Sig (Original) acetaminophen 325 mg oral tablet (20 sources) Start: 12-25-2022 acetaminophen (Tylenol) 325 MG tablet every 4 (four) hours. 0 12/25/2022 Active Start: 12-25-2022 take 2 tablets by mo [facility] every six hours as needed for pain [...] 2 puff apixaban 5 mg oral tablet (20 sources) Factor Xa Inhibitor Start: 09-16-2023 End: [...] Nonsteroidal Anti-inflammatory Drug Start: 12-25-2022 aspirin 81 mg EC tablet Take 1 tablet (81 mg) by mouth. 0 12/25/2022 Active Aspirin Low [...] Active cetirizine hydrochloride 10 mg oral tablet (20 sources) Histamine-1 Receptor Antagonist take 1 tablet by mouth once daily cetirizine (ZyrTEC) 10 mg tablet Take 1 tablet (10 mg) by mouth once daily. 0 Active take 1 capsule by mouth once cet irizine (ZyrTEC) 10 mg capsule Take 1 capsule (10 mg) by mouth 1 time. 0 Active cholecalciferol 0.025 mg oral tablet (20 sources) Vitamin D Start: 01-24-2023 take 1 tablet by mouth once daily cholecalciferol (Vitamin D-3) 25 MCG (1000 UT) tablet Take 1 tablet (25 mcg) by mouth once daily. 0 01/24/2023 Active Start: 01-24-2023 take 1 tablet by nadya th once daily cholecalciferol 1000 intl units (25 mcg) oral tablet 25 mcg = 1 tab(s), Oral, Daily, # 30 tab(s), Refills(s) 0 Start Date: 01/24/23 Status: Ordered Start: 01-24-2023 take 1 tablet by nadya [...] Cleanup) docusate sodium 100 mg oral capsule (20 sources) take 1 capsule by mouth twice daily docusate sodium (Colace) 100 mg capsule Take 1 capsule (100 mg) by mouth twice a day. 0 Active docusate sodium 50 mg / sennosides, jail 8.6 mg oral tablet (1 source) Start: 09-09-2019 sennosides-docusate sodium (SENOKOT-S) 8.6-50 MG tablet 2 tablet dofetilide 0.125 mg oral capsule (14 sources) Antiarrhythmic Start: 10-12-2023 End: 04-09-2024 take [...] Ordered 0.5 ml dulaglutide 1.5 mg/ml auto-injector (7 sources) GLP-1 Receptor Agonist Start: 12-21-2022 Trulicity [...] tablet (20 sources) Loop Diuretic Start: 12-21-2022 take 1 tablet by mouth every twenty-four hours as needed furosemide (Lasix) 20 mg tablet Take 1 tablet (20 mg) by mouth once daily as needed. 0 12/21/2022 Active gabapentin 100 mg oral [...] tab Oral Active take 2 tablets by [facility] twice daily at mealtime glyBURIDE (DIABETA) 5 [...] Active End: 09-10-2019 insulin glargine (BASAGLAR K DIMITRYKPEN) 100 UNIT/ML injection pen Inject 50 Units into the skin nightly 0 09/10/2019 Discontinued (Stop Taking at Discharge) insulin glargine,hum.rec.anl og (BASAGLAR KWIKPEN U-100 INSULIN SUBQ) (20 sources) inject 44 [IU] by subcutaneous injection [...] a day. 0 08/27/2023 Active Start: 02-13-2023 take 1 tablet by nadya twice daily levETIRAcetam 750 mg oral tablet, dispersible 750 mg = 1 tab(s), Oral, BID, Refills(s) 0 Start Date: 02/13/23 Status: Ordered Start: 12-25-2022 take 3 tablets by mo [facility] twice daily Keppra 250 mg Tab 750 mg = 3 tab(s), Oral, BID, Refills(s) 0 Start Date: 12/25/22 Status: Ordered take 1 tablet by nadya twice daily Keppra 750 MG Oral Tablet [...] 750 mg linagliptin 5 mg oral tablet (20 sources) Dipeptidyl Peptidase 4 Inhibitor take 1 tablet by mouth once daily linaGLIPtin (Tradjenta) 5 mg tablet Take 1 tablet (5 mg) by mouth once daily. 0 Active loratadine 10 mg oral tablet (20 sources) Start: 3 End: 3 take 1 tablet by mouth once daily as needed loratadine 10 mg Tab 10 mg = 1 tab(s), Oral, Daily, PRN Itching, # 90 tab(s), Refills(s) 0 Start Date: 02/13/23 Status: Ordered magnesium hydroxide 80 mg/ml oral suspension (1 source) Start: 9 magnesium hydroxide (MILK OF MAGNESIA) 400 MG/5ML suspension 30 mL magnesium oxide 400 mg oral tablet (20 sources) Start: 3 take 1 tablet by mouth once daily magnesium oxide (Mag-Ox) 400 mg (241.3 mg magnesium) tablet Take 1 tablet (400 mg) by mouth once daily. 0 01/24/2023 Active Megestrol (1 source) Progestin [...] 0 08/04/2022 Active take 2 tablets by [facility] twice daily at mealtime metFORMIN XR (Glucophage-XR) 500 mg 24 hr tablet Take 2 tablets (1,000 mg) by mouth 2 times a day with meals. Do not crush, chew, or split. 0 Active take 2 tablets by mo [facility] twice daily metFORMIN HCl ER 500 MG Oral Tablet Extended Release 24 Hour TAKE 2 TABLETS TWICE DAILY Quantity: 0 Refills: 0 Ordered: 24-Mar-2023 DO Active Metformin 1 tab Oral Active take 1 tablet by nadya twice daily at mealtime metFORMIN (GLUCOPHAGE) 1000 MG tablet Take 1,000 mg by mouth 2 times daily (with meals) 0 Active metoprolol tartrate 25 mg oral tablet (20 sources) beta-Adrenergic Celsa Start: 09-16-2023 End: 09-15-2024 [...] 0015 midodrine hydrochloride 5 mg oral tablet (20 sources) alpha-Adrenergic Agonist Start: 02-14-2023 take 1 tablet by mouth three times daily midodrine (Proamatine) 5 mg tablet Take 1 tablet (5 mg) by mouth 3 times a day. 0 02/14/2023 Active Start: 02-14-2023 take 1 tablet by nadya twice daily midodrine 5 mg Tab 5 mg = 1 tab(s), Oral, BID, # 60 tab(s), Refills(s) 0 Start Date: 02/14/23 Status: Ordered mirtazapine 30 mg oral tablet (20 sources) Start: 09-10-2023 take 1 tablet by [...] 10/11/2019 Active nitroglycerin 0.4 mg sublingual tablet (20 sources) Nitrate Vasodilator Start: 03-29-2021 nitroglycerin (Nitrostat) 0.[address] 1 tablet (0.4 mg) under the tongue every 5 minutes if needed for chest pain. 0 03/29/2021 Active Nitroglycerin 0. 3 MG Sublingual Active omeprazole 20 mg delayed release oral capsule (20 sources) Proton Pump Inhibitor Start: 06-21-2018 take 1 capsule by mouth once daily before mealtime omeprazole (PriLOSEC) [address] capsule Take 1 capsule (20 mg) by mouth once daily in the morning. Take before meals. 0 06/21/2018 Active 2 ml ondansetron 2 mg/ml injection (1 source) Serotonin-3 Receptor Antagonist Start: 09-06-2019 ondansetron (ZOFRAN) injection 4 mg oxyCODONE hydrochloride 5 mg oral tablet (1 source) Opioid Agonist Start: 09-08-2019 oxyCODONE (ROXICODONE) immediate release tablet 5 mg polyethylene glycol 3350 32276 mg powder for oral solution (20 sources) Osmotic Laxative Start: 08-20-2022 take 17 g by mouth every twenty-four hours as needed polyethylene glycol (Miralax) 17 gram/dose powder Take 17 g by mouth once daily as needed. 0 08/20/2022 Active Start: 09-09-2019 End: 10-10-2019 [...] 7 days 0 10/21/2023 10/27/2023 Active sennosides, [facility] (1 source) Senokot Active sodium chloride 0.154 [...] INFARCTION UNSPECIFIED] Onset: 2 Chronic Alcohol-related disorders (20 sources) History of alcohol abuse; Translations: [Alcohol abuse, in remission] Onset: 9 09-16-2023 Chronic Alcohol-related disorders (2 sources) History of alcohol abuse; Translations: [History of alcohol abuse] Onset: 9 09-09-2019 Episodic Cardiac dysrhythmias (20 sources) Unspecified atrial fibrillation; Translations: [Atrial fibrillation] Onset: 8 Chronic Cardiac dysrhythmias (20 sources) Bradycardia, unspecified; Translations: [Sinus bradycardia] Onset: 3 Episodic Cardiac dysrhythmias (2 sources) Typical atrial flutter; Translations: [Typical atrial flutter] Onset: 8 09-10-2019 Chronic kidney disease (20 sources) Chronic kidney disease; Translations: [Chronic kidney disease, unspecified] Onset: 3 09-16-2023 Chronic Chronic obstructive pulmonary disease and bronchiectasis (20 sources) Panacinar emphysema; 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 emphysema] Onset: [...] Episodic Hypertension with complications and secondary hypertension (20 sources) Hypertensive heart disease; Translations: [Hypertensive heart [...] protein-calorie malnutrition] Onset: 9 09-09-2019 Episodic Osteoarthritis (20 sources) Osteoarthritis; Translations: [Unspecified osteoarthritis, unspecified site] Onset: 3 09-16-2023 Chronic Other aftercare (1 source) Long-term current use of drug therapy; Translations: [Other superintendent container terminal (current) drug therapy] Onset: 3 Episodic Other aftercare (3 sources) Encounter for therapeutic drug level monitoring; Translations: [ENC THERAPEUTC DRUG LEVL MONITORING] Onset: 3 Episodic Other aftercare (3 sources) Other superintendent container terminal (current) drug therapy; Translations: [OTH INFORMATION RECEPTIONIST CURRENT DRUG THERAPY] Onset: 3 Episodic Other aftercare (1 source) senior living (current) use of insulin; Translations: [ASSISTED CURRENT USE OF INSULIN] Onset: 3 Episodic Other aftercare (3 sources) senior living (current) use of anticoagulants; Translations: [INFORMATION RECEPTIONIST CURRNT USE ANTICOAGULANTS] Onset: 3 Episodic Other aftercare (1 source) predatory animal exterminator (current) use of antithrombotics/antipla telets; Translations: [INFORMATION RECEPTIONIST ANTITHROMBOT/ANTIPLATLE TS] Onset: 3 Episodic Other aftercare (1 source) predatory animal exterminator (current) use of aspirin; Translations: [ASSISTED CURRENT USE OF ASPIRIN] Onset: 3 Episodic Other aftercare (2 sources) Patient encounter status; Translations: [Encounter for therapeutic drug level monitoring] 09-16-2023 Episodic Other aftercare (1 source) Taking high risk medication; Translations: [Other superintendent container terminal (current) drug therapy] 10-21-2023 Episodic Other and ill-defined heart disease (20 sources) Left ventricular hypertrophy; Translations: [Cardiomegaly] Onset: [...] Episodic Other nutritional; endocrine; and metabolic disorders (20 sources) Body mass index 30+ - obesity; [...] Onset: 2 Chronic Peripheral and visceral atherosclerosis (20 sources) Peripheral vascular disease; Translations: [Peripheral vascular [...] Translations: [DO NOT RESUSCITATE] Onset: 3 Episodic Shock (2 sources) Septic shock; Translations: [Septic shock] Onset: 9 Resolved: 9 09-09-2019 Episodic Spondylosis; intervertebral disc disorders; other back problems (20 sources) Degeneration of lumbosacral intervertebral disc; Translations: [Other intervertebral disc degeneration, lumbosacral region] Onset: 3 09-16-2023 Chronic Substance-related disorders (3 sources) Smoker; Translations: [Nicotine dependence, cigarettes, uncomplicated] Onset: 9 09-09-2019 Chronic Thyroid disorders (1 source) Hypothyroidism, unspecified; Translations: [...] Date Documented Da te Episodic/Chronic Abdominal pain (20 sources) Abdominal pain; Translations: [Unspecified abdominal pain] [...] 09-02-2009 09-16-2023 Episodic Deficiency and other anemia (20 sources) Normocytic anemia; Translations: [Anemia, unspecified] Onset: [...] Episodic Inflammatory conditions of male genital organs (20 sources) Soraida's gangrene; 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] Onset: 03-18-2023 09-10-2019 Episodic Malaise and fatigue (2 sources) Weakness; Translations: [Weakness] Onset: 07-15-2022 Episodic Open wounds of head; neck; and trunk (1 source) Laceration without foreign body of right eyelid and periocular area, initial encounter; Translations: [LAC NO FB RT EYELID PERIOCULAR INIT] Onset: 10-09-2022 Episodic Other aftercare (1 source) senior living (current) use of oral hypoglycemic drugs; Translations: [ASSISTED USE ORAL HYPOGLYCEMIC DX] Onset: 10-14-2022 Episodic Other connective tissue disease (1 source) Repeated falls; Translations: [REPEATED FALLS] Onset: 10-14-2022 Episodic Other connective tissue disease (20 sources) Pain in bilateral legs; Translations: [Pain [...] Onset: 10-09-2022 Episodic Other lower respiratory disease (20 sources) Dyspnea; Translations: [Shortness of breath] Onset: [...] UNSPECIFIED] Onset: 09-03-2022 Episodic Residual codes; unclassified (20 sources) Insomnia; Translations: [Insomnia, unspecified] Onset: 03-18-2023 09-16-2023 Episodic Screening and history of mental health and substance abuse codes (20 sources) Personal history of nicotine dependence; Translations: [Ex-smoker] Onset: 01-21-2023 09-16-2023 Episodic Comment on above: quit 10/2022, smoked X 50 years; Septicemia (except in labor) (3 sources) Sepsis, unspecified organism; Translations: [Sepsis due to Escherichia coli [E. coli]] Onset: 10-04-2022 Episodic Skin and subcutaneous tissue infections (20 sources) Cellulitis and abscess of lower limb; [...] PRT HEAD INITIAL ENCNTR] Onset: 10-09-2022 Episodic Syncope (20 sources) Syncope and collapse; Translations: [Syncope and collapse] Onset: 01-15-2023 Episodic Unclassified (1 source) History of SARS-CoV-2; Translations: [Personal history of COVID-19] Onset: 12-21-2022 Urinary tract infections (1 source) Urinary tract infection, site not specified; Translations: [UTI SITE NOT SPECIFIED] Onset: 10-14-2022 Episodic Results Test Name Value Interpretation Reference Range Facility Physician Orderon 12-28-2023 Physician Order [id number]. 00TIFF Normal [facility] Ambulatory Visit Summaryon 0 12-25-2023 Ambulatory Visit Summary [facility] Cardiac Device Check - Remot amanda 12-25-2023 Radiology Study observation (narrative) [facility] Work Phone: [facility] Work Phone: ECG 12-Leadon 12-25-2023 ECG 12-Lead [id number]#1. 00TIFF Normal [facility] Outside Recordson 12-25-2023 Outside Records [id number]. 00TIFF [facility] Physician Orderon 12-25-2023 Physician Order [id number]. 00TIFF [facility] No Panel Informationon 12-17 Radiology Study observation (narrative) [facility] Work Phone: [facility] Work Phone: No Panel Informationon 12-03 Radiology Study observation (narrative) [facility] Work Phone: [facility] Work Phone: ALL CBC WITH AUTO DIFFon BASOPHILS ABSOLUTE AUTO 0.0 [facility] Basophils/100 WBC (Bld) 0.5 % 0.2 - 2.0 % [facility] Eosinophils/100 WBC (Bld) 5.4 % 0.9 - 7.0 % [facility] Eryth[facility] distribution width (RBC) [Ratio] 13.6 % 11.0 - 15.0 % [facility] Hematocrit (Bld) [Volume fraction] 34.3 % Low 42.0 - 54.0 % [facility] Hemoglobin (Bld) [Mass/Vol] 10.5 g/dL Low 14.0 - 18.0 g/dL [facility] IMMATURE GRANULOCYTES ABS AUTO 0.02 [facility] Immature granulocytes/100 WBC (Bld) 0.3 % 0.0 - 0.5 % [facility] Interpretation and review of laboratory results Abnormal [facility] LYMPHOCYTES ABSOLUTE AUTO 2.4 [facility] Lymphocytes/100 WBC (Bld) 39.2 % 20.5 - 60.0 % [facility] MCH (RBC) [Entitic mass] 27.7 pg 25.9 - 34.0 pg [facility] MCHC (RBC) [Mass/Vol] 30.6 g/dL 29.9 - 35.2 g/dL [facility] MCV (RBC) [Entitic vol] 90.5 fL 80.0 - 94.0 fL [facility] MONOCYTES ABSOLUTE AUTO 0.5 [facility] Monocytes/100 WBC (Bld) 8.0 % 1.7 - 12.0 % [facility] NEUTROPHILS ABSOLUTE AUTO 2.9 [facility] Neutrophils/100 WBC (Bld) 46.6 % 43.0 - 75.0 % [facility] Platelet mean volume (Bld) [Entitic vol] 11.0 fL 9.5 - 13.5 fL [facility]H EO # 0.3 [facility]H PLT 232 [facility] TB RBC 3.79 Low [facility] TB WBC 6.1 [facility] CLINISYNC [facility] ECG 12 Leadon 10-21-2023 EKG performed today shows sinus bradycardia left axis deviation incomplete right bundle branch block at a rate of 58 bpm QRS duration 110 ms QT greater than 167 ms. Rhythm strip shows the same pattern. [facility] Work Phone: Basic metabolic 2000 panelon 10-14-2023 Anion gap [Moles/Vol] 13 mmol/L Normal 10-20 [facility] [place] Comment on above: Performed By: #### 3 4529-8 #### TARA NGO ([id number]) [facility] ([facility]) [address] [place] [address] 25399 Calcium [Mass/Vol] 8.1 mg/dL Low 8.6-10.3 [facility] Comment on above: Performed By: #### 3 4529-8 #### TARA NGO ([id number]) [facility] ([facility]) [address] [place] [address] 34249 Chloride [Moles/Vol] 101 mmol/L Normal 98-107 [facility] Comment on above: Performed By: #### 3 4529-8 #### TARA NGO ([id number]) [facility] ([facility]) [address] [place] [address] 46684 CO2 [Moles/Vol] 25 mmol/L Normal 21-32 [facility] Comment on above: Performed By: #### 3 4529-8 #### RACHELIBMIAH NGO ([id number]) [facility] ([facility]) [address] [place] [address] 24394 Creatinine [Mass/Vol] 1.17 mg/dL Normal 0.50-1.30 [facility] [place] Comment on above: Performed By: #### 3 4529-8 #### RACHELIBMIAH NGO ([id number]) [facility] ([facility]) [address] [place] [address] 80961 Glomerular filtration rate/1.73 sq M.predicted 67 mL/min/1.73m*2 Normal >60 [facility] Comment on above: Result Comment: Calc ulations of estimated GFR are performed using the 2020 CKD-EPI Study Refit equation without the race variable for the IDMS-Traceable creatinine methods. https://jasn.asnjournals.org/content//ASN.13210 20126 Performed By: #### 3 4529-8 #### TARA NGO ([id number]) [facility] ([facility]) [address] [place] [address] 25076 Glucose [Mass/Vol] 161 mg/dL High 74-99 [facility] Comment on above: Performed By: #### 3 4529-8 #### TARA NGO ([id number]) [facility] ([facility]) [address] [place] [address] 90257 Potassium [Moles/Vol] 5.0 mmol/L Normal 3.5-5.3 [facility] Comment on above: Performed By: #### 3 4529-8 #### TARA NGO ([id number]) [facility] ([facility]) [address] [place] [address] 88429 Sodium [Moles/Vol] 134 mmol/L Low 136-145 [facility] Comment on above: Performed By: #### 3 4529-8 #### TARA NGO ([id number]) [facility] ([facility]) [address] [place] [address] 48389 Urea nitrogen [Mass/Vol] 31 mg/dL High 6-23 [facility] Comment on above: Performed By: #### 3 4529-8 #### TARA NGO ([id number]) [facility] ([facility]) [address] [place] [address] 31959 ECG 12-LEADon 10-14-2023 ECG 12-LEAD Ventricular Rate 49 Atrial Rate 49 P-R Interval 136 QRS Duration 110 Q-T Interval 540 QTC Calculation(Bazett) 487 P [place] 6 R [place]ok[place] -41 T [place]okie -29 QRS Count 8 Q Onset 226 P Onset 158 P Offset 202 T Offset 496 QTC Fredericia 504 Diagnosis Sinus bradycardia Left axis deviation ST & T wave abnormality, consider anterior ischemia Prolonged QT Abnormal ECG When compared with ECG of 14-OCT-2023 06:19, (unconfirmed) No significant change was found Confirmed by Sandra Plunkett ([id number]) on 10/16/2023 6:25:06 PM Normal [facility] ECG 12-LEAD Ventricular Rate 55 Atrial Rate 55 P-R Interval 156 QRS Duration 118 Q-T Interval 492 QTC Calculation(Bazett) 470 P [place] -5 R [place]ok[place] -42 T [place]ok[place] -26 QRS Count 9 Q Onset 209 P Onset 131 P Offset 187 T Offset 455 QTC Fredericia 478 Diagnosis Sinus bradycardia Left axis deviation Nonspecific intraventricular conduction delay T wave abnormality, consider anterolateral ischemia Prolonged QT Abnormal ECG When compared with ECG of 13-OCT-2023 23:48, (unconfirmed) No significant change was found Confirmed by Sandra Plunkett ([id number]) on 10/16/2023 6:16:04 PM Normal [facility] ECG 12-LEAD Ventricular Rate 68 Atrial Rate 68 P-R Interval 158 QRS Duration 110 Q-T Interval 436 QTC Calculation(Bazett) 463 P [place] 67 R [place] -47 T [place]ok[place] -24 QRS Count 11 Q Onset 211 [...] Plunkett ([id number]) on 10/15/2023 7:03:42 AM Normal [facility] Glucose Test strip manual (B ld) [Mass/Vol]on 10-14-2023 Glucose [Mass/Vol] 120 mg/dL High 74-99 [facility] Comment on above: Performed By: #### 3 4529-8 #### TARA NGO ([id number]) [facility] ([facility]) [address] [place] [address] 33449 Glucose [Mass/Vol] 138 mg/dL High 74-99 [facility] Comment on above: Performed By: #### 3 4529-8 #### TARA NGO ([id number]) [facility] ([facility]) [address] [place] [address] 94042 Magnesiumon 10-14-2023 Magnesium [Mass/Vol] 1.79 mg/dL Normal 1.60-2.40 [facility] Comment on above: Performed By: #### 3 4529-8 #### TARA NGO ([id number]) [facility] ([facility]) [address] [place] [address] 91755 Basic metabolic 2000 panelon 10-13-2023 Anion gap [Moles/Vol] 11 mmol/L Normal 10-20 [facility] [place] Comment on above: Performed By: #### 2 4321-2 #### TARA NGO ([id number]) [facility] ([facility]) [address] [place] [address] 60365 Calcium [Mass/Vol] 8.6 mg/dL Normal 8.6-10.3 [facility] Comment on above: Performed By: #### 2 4321-2 #### TARA NGO ([id number]) [facility] ([facility]) [address] [place] [address] 28255 Chloride [Moles/Vol] 102 mmol/L Normal 98-107 [facility] Comment on above: Performed By: #### 2 4321-2 #### TARA NGO ([id number]) [facility] ([facility]) [address] [place] [address] 96438 CO2 [Moles/Vol] 29 mmol/L Normal 21-32 [facility] Comment on above: Performed By: #### 2 4321-2 #### TARA NGO ([id number]) [facility] ([facility]) [address] [place] [address] 85377 Creatinine [Mass/Vol] 1.06 mg/dL Normal 0.50-1.30 [facility] [place] Comment on above: Performed By: #### 2 4321-2 #### TARA NGO ([id number]) [facility] ([facility]) [address] [place] [address] 07388 Glomerular filtration rate/1.73 sq M.predicted 76 mL/min/1.73m*2 Normal >60 [facility] Comment on above: Result Comment: Calc ulations of estimated GFR are performed using the 2020 CKD-EPI Study Refit equation without the race variable for the IDMS-Traceable creatinine methods. https://jasn.asnjournals.org/content/early//ASN.46175 69259 Performed By: #### 2 4321-2 #### TARA NGO ([id number]) [facility] ([facility]) [address] [place] [address] 66035 Glucose [Mass/Vol] 73 mg/dL Low 74-99 [facility] Comment on above: Performed By: #### 2 4321-2 #### TARA NGO ([id number]) [facility] ([facility]) [address] [place] [address] 87224 Potassium [Moles/Vol] 4.1 mmol/L Normal 3.5-5.3 [facility] [place] Comment on above: Performed By: #### 2 4321-2 #### TARA NGO ([id number]) [facility] ([facility]) [address] [place] [address] 61696 Sodium [Moles/Vol] 138 mmol/L Normal 136-145 [facility] Comment on above: Performed By: #### 2 4321-2 #### TARA NGO ([id number]) [facility] ([facility]) [address] [place] [address] 77696 Urea nitrogen [Mass/Vol] 29 mg/dL High 6-23 [facility] [place] Comment on above: Performed By: #### 2 4321-2 #### TARA NGO ([id number]) [facility] ([facility]) [address] [place] [address] ECG 12-LEADon 10-13-2023 ECG 12-LEAD Ventricular Rate 75 Atrial Rate 75 P-R Interval 172 QRS Duration 112 Q-T Interval 390 QTC Calculation(Bazett) 435 P [place] 57 R [place]ok[place] -54 T Skokie -12 QRS Count 13 Q Onset 211 P Onset 125 P Offset 189 T Offset 406 QTC Fredericia 419 Diagnosis Normal sinus rhythm Left axis deviation Nonspecific T wave abnormality Abnormal ECG When compared with ECG of 13-OCT-2023 07:16, (unconfirmed) Sinus rhythm has replaced Atrial flutter ST no longer depressed in Anterior leads Confirmed by Sandra Plunkett ([id number]) on 10/16/2023 6:05:45 PM Normal [facility] ECG 12-LEAD Ventricular Rate 109 Atrial Rate 227 QRS Duration 102 Q-T Interval 362 QTC Calculation(Bazett) 487 R [place] -73 T [place] 7 QRS Count 18 Q Onset 212 T Offset 393 QTC Fredericia 441 Diagnosis Atrial flutter with variable AV block Left axis deviation Nonspecific ST abnormality Abnormal ECG When compared with ECG of 12-OCT-2023 23:14, (unconfirmed) No significant change was found Confirmed by Sandra Plunkett ([id number]) on 10/16/2023 2:09:21 PM Normal [facility] ECG 12-LEAD Ventricular Rate 117 Atrial Rate 117 P-R Interval 178 QRS Duration 98 Q-T Interval 332 QTC Calculation(Bazett) 463 R [place] -69 T [place]ok[place] 33 QRS Count 19 Q Onset 214 P Onset 125 P Offset 185 T Offset 380 QTC Fredericia 415 Diagnosis Atrial flutter with 2 to 1 block Left axis deviation Incomplete right bundle branch block Nonspecific ST abnormality Abnormal ECG When compared with ECG of 12-OCT-2023 14:40, No significant change was found Confirmed by Sandra Plunkett ([id number]) on 10/15/2023 7:02:20 AM Normal [facility] Glucose Test strip manual (B ld) [Mass/Vol]on 10-13-2023 Glucose [Mass/Vol] 178 mg/dL High 74-99 [facility] Comment on above: Performed By: #### 3 4529-8 #### TARA NGO ([id number]) [facility] ([facility]) [address] [place] [address] 20071 Glucose [Mass/Vol] 232 mg/dL High 74-99 [facility] Comment on above: Performed By: #### 3 4529-8 #### TARA NGO ([id number]) [facility] ([facility]) [address] [place] [address] 67232 Glucose [Mass/Vol] 101 mg/dL High 74-99 [facility] Comment on above: Performed By: #### 3 4529-8 #### TARA NGO ([id number]) [facility] ([facility]) [address] [place] [address] 91260 Glucose [Mass/Vol] 97 mg/dL Normal 74-99 [facility] Comment on above: Performed By: #### 3 4529-8 #### TARA NGO ([id number]) [facility] ([facility]) [address] [place] [address] 16403 Glucose [Mass/Vol] 147 mg/dL High 74-99 [facility] Comment on above: Performed By: #### 2 341-6 #### TARA NGO ([id number]) [facility] ([facility]) [address] [place] [address] 91468 Glucose [Mass/Vol] 66 mg/dL Low 74-99 [facility] Comment on above: Performed By: #### 2 341-6 #### TARA NGO ([id number]) [facility] ([facility]) [address] [place] [address] 10492 Magnesiumon 10-13-2023 Magnesium [Mass/Vol] 1.79 mg/dL Normal 1.60-2.40 [facility] Comment on above: Performed By: #### 1 9123-9 #### TARA NGO ([id number]) [facility] ([facility]) [address] [place] [address] 10720 TRANSESOPHAGEAL ECHO (JASMYNE)on 10-13-2023 TRANSESOPHAGEAL ECHO (JASMYNE) [place] [address] TRANSESOPHAGEAL ECHOCARDIOGRAM REPORT Patient Name: OTILIO Murry SUAREZ Reading Physician: [id number] Dana Mas MD Study Date: 10/13/2023 Ordering Provider: [id number] ESTHER Debbie MRN/PID: [id number] Fellow: Nurse: Raine Griffiths RN Date of /Age: 1 1955 Structured Cabling Technician: Katherin Cope RCS years Gender: M Additional Staff: Height: 187.96 cm Admit Date: 10/12/2023 Weight: 107.05 kg Admission Status: Inpatient - Routine BSA: 2.33 m2 Department Location: [facility] Blood Pressure: 140 /78 mmHg Study Type: TRANSESOPHAGEAL ECHO (JASMYNE) Diagnosis/ICD: Unspecified atrial fibrillation-I48.91 Indication: A-FIB CPT Codes: JASMYNE Complete-17985; Moderate Sedation Services initial 15 minutes patient >5 years-63651 Study Detail: The following Echo studies were [...] RV Syst Pressure: 26.0 mmHg (< 30mmHg) [id number] Dana Mas MD Electronically signed on 10/13/2023 at 11:56:54 AM Final Normal [facility] CBC panel Auto (Bld)on 10-12 Erythrocyte distribution width (RBC) [Ratio] 13.9 % Normal 11.5-14.5 [facility] [place] Comment on above: Performed By: #### 5 8410-2 #### TARA NGO ([id number]) [facility] ([facility]) [address] [place] [address] 57870 Hematocrit (Bld) [Volume fraction] 36.9 % Low 41.0-52.0 [facility] Comment on above: Performed By: #### 5 8410-2 #### TARA NGO ([id number]) [facility] ([facility]) [address] [place] [address] 06897 Hemoglobin (Bld) [Mass/Vol] 11.7 g/dL Low 13.5-17.5 [facility] [place] Comment on above: Performed By: #### 5 8410-2 #### TARA NGO ([id number]) [facility] ([facility]) [address] [place] [address] 79093 MCH (RBC) [Entitic mass] 28.1 pg Normal 26.0-34.0 [facility] [place] Comment on above: Performed By: #### 5 8410-2 #### TARA NGO ([id number]) [facility] ([facility]) [address] [place] [address] 50329 MCHC (RBC) [Mass/Vol] 31.7 g/dL Low 32.0-36.0 [facility] [place] Comment on above: Performed By: #### 5 8410-2 #### TARA NGO ([id number]) [facility] ([facility]) [address] [place] [address] 77781 MCV (RBC) [Entitic vol] 89 fL Normal 80-100 [facility] [place] Comment on above: Performed By: #### 5 8410-2 #### TARA NGO ([id number]) [facility] ([facility]) [address] [place] [address] 55634 Nucleated RBC/100 WBC (Bld) [Ratio] 0.0 /100 WBCs Normal 0.0-0.0 [facility] Comment on above: Performed By: #### 5 8410-2 #### TARA NGO ([id number]) [facility] ([facility]) [address] [place] [address] 61887 Platelets (Bld) [#/Vol] 224 x10*3/uL Normal 150-450 [facility] [place] Comment on above: Performed By: #### 5 8410-2 #### TARA NGO ([id number]) [facility] ([facility]) [address] [place] [address] RBC (Bld) [#/Vol] 4.17 x10*6/uL Low 4.50-5.90 [facility] Comment on above: Performed By: #### 5 8410-2 #### TARA NGO ([id number]) [facility] ([facility]) [address] [place] [address] WBC (Bld) [#/Vol] 10.7 x10*3/uL Normal 4.4-11.3 [facility] Comment on above: Performed By: #### 5 8410-2 #### TARA NGO ([id number]) [facility] ([facility]) [address] [place] [address] 65355 Comprehensive metabolic 2000 panelon 10-12-2023 Albumin BCP dye [Mass/Vol] 3.7 g/dL Normal 3.4-5.0 [facility] [place] Comment on above: Performed By: #### 2 4323-8 #### TARA NGO ([id number]) [facility] ([facility]) [address] [place] [address] 87535 ALP [Catalytic activity/Vol] 61 U/L Normal 33-136 [facility] [place] Comment on above: Performed By: #### 2 4323-8 #### TARA NGO ([id number]) [facility] ([facility]) [address] [place] [address] ALT With P-5'-P [Catalytic activity/Vol] 18 U/L Normal 10-52 [facility] [place] Comment on above: Result Comment: Tracey ents treated with Sulfasalazine may generate falsely decreased results for ALT. Performed By: #### 2 4323-8 #### TARA NGO ([id number]) [facility] ([facility]) [address] [place] [address] Anion gap [Moles/Vol] 13 mmol/L Normal 10-20 [facility] [place] Comment on above: Performed By: #### 2 4323-8 #### TARA NGO ([id number]) [facility] ([facility]) [address] [place] [address] 00064 AST With P-5'-P [Catalytic activity/Vol] 12 U/L Normal 9-39 [facility] [place] Comment on above: Performed By: #### 2 432-8 #### TARA NGO ([id number]) [facility] ([facility]) [address] [place] [address] 74956 Bilirubin [Mass/Vol] 0.5 mg/dL Normal 0.0-1.2 [facility] Comment on above: Performed By: #### 2 4323-8 #### TARA NGO ([id number]) [facility] ([facility]) [address] [place] [address] 33007 Calcium [Mass/Vol] 8.9 mg/dL Normal 8.6-10.3 [facility] Comment on above: Performed By: #### 2 4323-8 #### TARA NGO ([id number]) [facility] ([facility]) [address] [place] [address] 96884 Chloride [Moles/Vol] 100 mmol/L Normal 98-107 [facility] Comment on above: Performed By: #### 2 4323-8 #### TARA NGO ([id number]) [facility] ([facility]) [address] [place] [address] CO2 [Moles/Vol] 29 mmol/L Normal 21-32 [facility] Comment on above: Performed By: #### 2 4323-8 #### TARA NGO ([id number]) [facility] ([facility]) [address] [place] [address] 10748 Creatinine [Mass/Vol] 1.00 mg/dL Normal 0.50-1.30 [facility] Comment on above: Performed By: #### 2 4323-8 #### TARA NGO ([id number]) [facility] ([facility]) [address] [place] [address] 38868 Glomerular filtration rate/1.73 sq M.predicted 81 mL/min/1.73m*2 Normal >60 [facility] Comment on above: Result Comment: Calc ulations of estimated GFR are performed using the 2020 CKD-EPI Study Refit equation without the race variable for the IDMS-Traceable creatinine methods. https://jasn.asnjournals.org/content//ASN.78052 13165 Performed By: #### 2 4323-8 #### TARA NGO ([id number]) [facility] ([facility]) [address] [place] [address] 22098 Glucose [Mass/Vol] 107 mg/dL High 74-99 [facility] Comment on above: Performed By: #### 2 4323-8 #### TARA NGO ([id number]) [facility] ([facility]) [address] [place] [address] 13329 Potassium [Moles/Vol] 3.7 mmol/L Normal 3.5-5.3 [facility] Comment on above: Performed By: #### 2 4323-8 #### RACHELIBMIAH NGO ([id number]) [facility] ([facility]) [address] [place] [address] 61894 Protein [Mass/Vol] 6.3 g/dL Low 6.4-8.2 [facility] Comment on above: Performed By: #### 2 4323-8 #### TARA NGO ([id number]) [facility] ([facility]) [address] [place] [address] Sodium [Moles/Vol] 138 mmol/L Normal 136-145 [facility] Comment on above: Performed By: #### 2 4323-8 #### RACHELIBMIAH NGO ([id number]) [facility] ([facility]) [address] [place] [address] Urea nitrogen [Mass/Vol] 33 mg/dL High 6-23 [facility] Comment on above: Performed By: #### 2 4323-8 #### TARA NGO ([id number]) [facility] ([facility]) [address] [place] [address] ECG 12-LEADon 10-12-2023 ECG 12-LEAD Ventricular Rate 112 Atrial Rate 112 P-R Interval 200 QRS Duration 108 Q-T Interval 348 QTC Calculation(Bazett) 475 R [place] -61 T [place]ok[place] 41 QRS Count 18 Q Onset 211 [...] Mack ([id number]) on 10/12/2023 3:47:44 PM Normal [facility] ECG 12-LEAD Ventricular Rate 113 Atrial Rate 226 QRS Duration 104 Q-T Interval 340 QTC Calculation(Bazett) 466 P [place] 259 R [place] -58 T [place]ok[place] 9 QRS Count 19 Q Onset 211 [...] Mack ([id number]) on 10/12/2023 3:47:15 PM Normal [facility] Glucose Test strip manual (B ld) [Mass/Vol]on 10-12-2023 Glucose [Mass/Vol] 223 mg/dL High 74-99 [facility] Comment on above: Performed By: #### 2 341-6 #### TARA NGO ([id number]) [facility] ([facility]) [address] [place] [address] 86654 Magnesiumon 10-12-2023 Magnesium [Mass/Vol] 1.49 mg/dL Low 1.60-2.40 [facility] Comment on above: Performed By: #### 1 9123-9 #### TARA NGO ([id number]) [facility] ([facility]) [address] [place] [address] 90602 PT and aPTT panel Coag (PPP) on 10-12-2023 aPTT Coag (PPP) [Time] 29 s Normal 27-38 [facility] Comment on above: Order Comment: The A PTT is no longer used for monitoring Unfractionated Heparin Therapy. For monitoring Heparin Therapy, use the Heparin Assay. Performed By: #### 3 4529-8 #### TARA NGO ([id number]) [facility] ([facility]) [address] [place] [address] 05821 INR Coag (PPP) [Relative time] 1.1 Normal 0.9-1.1 [facility] Comment on above: Order Comment: The A PTT is no longer used for monitoring Unfractionated Heparin Therapy. For monitoring Heparin Therapy, use the Heparin Assay. Performed By: #### 3 4529-8 #### TARA NGO ([id number]) [facility] ([facility]) [address] [place] [address] 73903 PT Coag (PPP) [Time] 12.2 s Normal 9.8-12.8 [facility] Comment on above: Order Comment: The A PTT is no longer used for monitoring Unfractionated Heparin Therapy. For monitoring Heparin Therapy, use the Heparin Assay. Performed By: #### 3 4529-8 #### TARA NGO ([id number]) [facility] [place] [address] [place] [address] TSH WITH REFLEX TO FREE T4 I F ABNORMALon 10-12-2023 TSH Qn 3.26 m[IU]/L Normal 0.44-3.98 [facility] Comment on above: Order Comment: TSH t esting is performed using different testing methodology at [facility] than at other [facility]. Direct result comparisons should only be made within the same method. Performed By: #### T HYDS #### TARA NGO ([id number]) [facility] [address] [place] [address] ED Note-Physicianon 10-08-19 ED Note-Physician Normal [facility] Comment on above: Result Comment: Elec tronically Signed By: Jered Chavis DO.br\Date and Time Signed: 10/07/23 23:11 EST Auto Diffon 10-07-2023 Basophils/100 WBC (Bld) 0.6 % Normal 0.0-2.0 [facility] Comment on above: Order Comment: Order Added by Discern Expert. Performed By: #### 2 917121, [id number], [id number], 9722205, 29128928, 2828627, 9397649, 13734018, 5876258 ####[facility] [address] [place] [address] Basophils/Leukocytes Auto (Bld) [Pure # fraction] 0.1 E9/L Normal 0.0-0.2 [facility] Comment on above: Order Comment: Order Added by Discern Expert. Performed By: #### 2 411404, 7292924, [id number], 6804149, 14110875, 8402401, 0444759, 78712656, 8230361 ####[facility] [address] [place] [address] Eosinophils/100 WBC (Bld) 3.0 % Normal 0.0-8.0 [facility] Comment on above: Order Comment: Order Added by Discern Expert. Performed By: #### 2 629833, 9109338, 96951127, 4275845, 79651128, 8034041, 5903864, 77103539, 6538983 ####[facility] [address] [place] [address] Eosinophils/Leukocytes Auto (Bld) [Pure # fraction] 0.3 E9/L Normal 0.0-0.5 [facility] Comment on above: Order Comment: Order Added by Discern Expert. Performed By: #### 2 051334, 9113548, 14566336, 4086920, 76260864, 5897324, 8722867, 20002686, 5873426 ####[facility] [address] [place] [address] Lymphocytes/100 WBC (Bld) 25.2 % Normal 14.0-50.0 [facility] Comment on above: Order Comment: Order Added by Discern Expert. Performed By: #### 2 600425, 6471283, 58332526, 1757345, 44128023, 3220994, 7120802, 66799434, 3165607 ####[place] [address] [place] [address] Lymphocytes/Leukocytes Auto (Bld) [Pure # fraction] 2.6 E9/L Normal 1.0-4.0 [facility] Comment on above: Order Comment: Order Added by Discern Expert. Performed By: #### 2 631207, 2750154, 18193022, 2460422, 71497990, 6491138, 4232565, 40896099, 7300233 ####[place] [place] [address] Monocytes/100 WBC (Bld) 4.7 % Normal 4.0-14.0 [facility] Comment on above: Order Comment: Order Added by Pearl Expert. Performed By: #### 2 934542, 4862691, 27175606, 5776109, 11076503, 7713646, 9878210, 65137191, 4617451 ####[facility] [address] [place] [address] Monocytes/Leukocytes Auto (Bld) [Pure # fraction] 0.5 E9/L Normal 0.2-1.0 [facility] Comment on above: Order Comment: Order Added by Discern Expert. Performed By: #### 2 245516, 5594736, 64586853, 0185217, 22234391, 4009416, 0125361, 61833969, 9405184 ####[facility] [address] [place] [address] Neutrophils/100 WBC (Bld) 66.5 % Normal 36.0-75.0 [facility] Comment on above: Order Comment: Order Added by Discern Expert. Performed By: #### 2 197672, 5205516, 09452997, 0695135, 22468800, 1803058, 2089863, 91912376, 0641728 ####[address] [place] [address] Neutrophils/Leukocytes Auto (Bld) [Pure # fraction] 6.8 E9/L Normal 2.0-7.5 [facility] Comment on above: Order Comment: Order Added by Discern Expert. Performed By: #### 2 751398, 1584509, 37663025, 9305720, 43308898, 3411122, 3704487, 35554753, 1037041 ####[facility] [address] [place] [address] BMPon 10-07-2023 Anion gap [Moles/Vol] 12 mmol/L Normal 6-16 [facility] Comment on above: Performed By: #### 2 099411, 2159220, 36600624, 0383243, 53394458, 7544107, 3276642, 10022242, 7752182 ####[facility] [address] [place] [address] BUN/Creat Ratio 26 No Units High 10-20 [facility] Comment on above: Performed By: #### 2 158846, 9570436, 30977093, 5805909, 92197675, 1116454, 9147059, 49477761, 1578020 ####[facility] [address] [place] [address] Calcium [Mass/Vol] 8.7 mg/dL Low 8.9-11.1 [facility] Comment on above: Performed By: #### 2 684973, 2444068, 89070652, 7027277, 82656381, 0523094, 6889330, 55293195, 0615883 ####[facility] [address] [place] [address] Chloride [Moles/Vol] 102 mmol/L Normal 101-111 [facility] Comment on above: Performed By: #### 2 846030, 7277883, 87918479, 6887848, 18338909, 8315794, 7066052, 06442160, 8788804 ####[facility] [address] [place] [address] CO2 [Moles/Vol] 28 mmol/L Normal 21-31 [facility] Comment on above: Performed By: #### 2 475846, 5361440, 52658583, 6266686, 50067770, 6913763, 1153669, 13454396, 1238380 ####[facility] [address] [place] [address] Creatinine [Mass/Vol] 0.9 mg/dL Normal 0.5-1.3 [facility] Comment on above: Performed By: #### 2 147916, 0631670, 71163440, 7306965, 19033165, 8658463, 5282617, 63117310, 4157129 ####[facility] [address] [place] [address] Glucose [Mass/Vol] 181 mg/dL Normal 55-199 [facility] Comment on above: Performed By: #### 2 307273, 0788072, 79825342, 1645853, 44313924, 9823057, 0970743, 08908087, 4694460 ####[facility] [address] [place] [address] Potassium [Moles/Vol] 4.4 mmol/L Normal 3.5-5.3 [facility] Comment on above: Performed By: #### 2 693632, 4400202, 31620088, 2754935, 83776394, 3026710, 5620751, 00733613, 0281322 ####[facility] [address] [place] [address] Sodium [Moles/Vol] 138 mmol/L Normal 135-145 [facility] Comment on above: Performed By: #### 2 376486, 2538391, 71354719, 8973637, 18286527, 1297869, 0089832, 40266821, 9483596 ####[facility] [address] [place] [address] Urea nitrogen [Mass/Vol] 23 mg/dL High 5-21 [facility] Comment on above: Performed By: #### 2 723464, 9346879, 67973636, 1409248, 98114160, 1674706, 5661730, 66829331, 0902357 ####[facility] [address] [place] [address] CBC w/ Auto Diffon Erythrocyte distribution width (RBC) [Ratio] 14.4 % High 10.9-14.2 [facility] Comment on above: Performed By: #### 2 916568, 0879892, 30045786, 6237737, 78726553, 5493061, 6097269, 50622838, 7845053 ####[facility] [address] [place] [address] Hematocrit (Bld) [Volume fraction] 37.5 % Low 37.7-49.0 [facility] Comment on above: Performed By: #### 2 310436, 7568472, 44772081, 1236592, 59334215, 4268118, 9568190, 31169739, 0060453 ####[facility] [address] [place] [address] Hemoglobin (Bld) [Mass/Vol] 12.1 g/dL Low 13.5-17.5 [facility] Comment on above: Performed By: #### 2 944468, 2306021, 09351568, 5895600, 55303146, 9839604, 2070309, 83525674, 1148471 ####[address] [place] [address] MCH (RBC) [Entitic mass] 27.4 pg Normal 27.0-34.0 [facility] Comment on above: Performed By: #### 2 905204, 6527148, 34911078, 7247614, 04989197, 3553298, 0574610, 82789853, 1022529 ####[address] [address] MCHC (RBC) [Mass/Vol] 32.1 g/dL Normal 31.4-36.0 [facility] Comment on above: Performed By: #### 2 313761, 3413471, 37305122, 8230889, 24968721, 7323938, 0571030, 52890912, 4798177 ####[address] [address] MCV (RBC) [Entitic vol] 85.3 fL Normal 80.0-100.0 [facility] Comment on above: Performed By: #### 2 418301, 1132359, 86634709, 0567372, 88403684, 6015073, 0017570, 94917591, 8208659 ####[address] [place] [address] Platelet mean volume (Bld) [Entitic vol] 8.3 fL Normal 6.4-10.8 [facility] Comment on above: Performed By: #### 2 415304, 9111104, 90439144, 6010228, 77418838, 1825061, 3801710, 10404896, 4991995 ####[facility] [address] [place] [address] Platelets (Bld) [#/Vol] 273.0 E9/L Normal 150.0-500.0 [facility] Comment on above: Performed By: #### 2 974930, 1324090, 31654736, 5167614, 74191530, 5274362, 3734931, 42371262, 0758562 ####[facility] [address] [place] [address] RBC (Bld) [#/Vol] 4.4 E12/L Normal 4.3-5.9 [facility] Comment on above: Performed By: #### 2 782468, 9047210, 71215654, 9699297, 01801904, 1292687, 3261706, 23017862, 2467840 ####[facility] [address] [place] [address] WBC corrected for nucl RBC Auto (Bld) [#/Vol] 10.3 E9/L Normal 4.0-11.0 [facility] Comment on above: Performed By: #### 2 420197, 7091020, 49865874, 6466189, 55795413, 9171420, 9241731, 12054984, 9077277 ####[facility] [address] [place] [address] Consent for Treatmenton Consent for Treatment [id number]#1.0 0TIFF Normal [facility] Discharge Instructionson Discharge Instructions [id number]#1.00 TIFF Normal [facility] ED Clinical Summaryon 2023 ED Clinical Summary Normal Kameron valdez [facility] ED Patient Education Noteon 10-07-2023 ED Patient Education Note Normal [facility] ED Patient Summaryon 024 ED Patient Summary Normal [facility] Hep Func Panelon 10-07-2023 Albumin [Mass/Vol] 3.6 g/dL Normal 3.3-5.0 [facility] Comment on above: Performed By: #### 2 257201, 2507570, 79984470, 6754973, 57335288, 9823948, 4706799, 66325438, 2001478 ####[facility] [address] [place] [address] Albumin/Globulin [Mass ratio] 1.4 {ratio} Normal 1.1-2.2 [facility] Comment on above: Performed By: #### 2 414789, 3805843, 44508588, 4112114, 50424359, 3679953, 1720239, 83763013, 4803281 ####[facility] [address] [place] [address] Alk Phos 62 Int._Unit/L Normal 21-98 [facility] Comment on above: Performed By: #### 2 528108, 2132003, 08425493, 0441877, 43605109, 8768287, 0015759, 85871035, 3437120 ####[facility] [address] [place] [address] ALT 13 Int._Unit/L Normal 6-46 [facility] Comment on above: Performed By: #### 2 339400, 8069552, 92086516, 3068065, 70803299, 5311024, 8693934, 42776982, 2158553 ####[facility] [address] [place] [address] AST 11 Int._Unit/L Normal 5-43 [facility] Comment on above: Performed By: #### 2 065729, 2831343, 93720164, 2711497, 95514153, 7499945, 7203334, 17869693, 6665733 ####[facility] [address] [place] [address] Bili Direct 0.1 mg/dL Normal 0.0-0.4 [facility] Comment on above: Performed By: #### 2 067486, 0662039, 77608844, 3759132, 50652326, 0312416, 4820362, 59120560, 5184490 ####[facility] [address] [place] [address] Bili Indirect 0.3 mg/dL Normal 0.1-0.9 [facility] Comment on above: Performed By: #### 2 174520, 6770814, 04003047, 1209190, 60175569, 8471220, 8755477, 62259639, 7239911 ####[facility] [address] [place] [address] Bili Total 0.4 mg/dL Normal 0.0-1.1 [facility] Comment on above: Performed By: #### 2 650317, 5145210, 05192035, 2899158, 56492019, 3426868, 2676897, 46639467, 4006491 ####[facility] [address] [place] [address] Globulin (S) [Mass/Vol] 2.5 g/dL Normal 1.4-4.0 [facility] Comment on above: Performed By: #### 2 428842, 2013960, 30325986, 4934858, 22415632, 0080362, 7256327, 81752776, 2269855 ####[facility] [address] [place] [address] Protein [Mass/Vol] 6.1 g/dL Normal 6.0-7.8 [facility] Comment on above: Performed By: #### 2 762730, 8890551, 88697061, 6092700, 82334538, 0603165, 5696478, 84609702, 6095308 ####[address] [place] [address] Lipase Levelon 10-07-2023 Lipase Lvl 15 unit/L Normal 13-58 [facility] Comment on above: Performed By: #### 2 583632, 3310265, 80540924, 7759065, 15330414, 1774321, 7213234, 21555989, 3484219 ####[facility] [address] [place] [address] Magnesiumon 10-07-2023 Magnesium [Mass/Vol] 1.6 mg/dL Normal 1.3-2.4 [facility] Comment on above: Performed By: #### 2 280258, 8534684, 26832218, 1484056, 08859838, 4868899, 5847166, 50193206, 6848094 ####[facility] [address] [place] [address] Medication Listson Medication Lists [id number] 30 [id number]#1.00 TIFF Normal [facility] Monitor Recordon 10-07-2023 Monitor Record [id number] 10 [id number]#1. 00TIFF Normal [facility] Outside Recordson 10-07-2023 Outside Records [id number] 30 [id number]#1.00 TIFF Normal [facility] PT & PTTon 10-07-2023 aPTT Coag (PPP) [Time] 30.0 second(s) Normal 25.1-36.5 [facility] Comment on above: Result Comment: Para [...] the same coagulation reagent and instrumentation as [facility]. Currently there are no coagulation studies available worldwide for children to 14 days, and no normal ranges. Heparin therapeutic range (represented by Anti-Factor Xa activity of 0.2 - 0.4 U/mL) corresponds to PTT of 56.6 - 109.0 sec. Performed By: #### 2 689921, 7303325, 57880999, 5718290, 02687694, 2149129, 4915934, 54178333, 1949998 ####[facility] [address] [place] [address] INR Coag (PPP) [Relative time] 1.1 {INR} Invalid Interpretation Code [facility] Comment on above: Result Comment: INR results are specifically intended to assess patients stabilized on long-term Anticoagulation therapy suggested INR?s ?Less Intensive Anticoagulation? 2.0 ? 3.0Conventional Range 3.0 ? 4.5 Performed By: #### 2 440861, 4455977, 42794548, 1690338, 60851856, 3825485, 1832827, 03163005, 9610458 ####[facility] [address] [place] [address] PT Coag (PPP) [Time] 12.5 second(s) Normal 9.4-12.5 [facility] Comment on above: Result Comment: 15 [...] the same coagulation reagent and instrumentation as [facility]. Currently there are no coagulation studies available worldwide for children to 14 days, and no normal ranges. Performed By: #### 2 065444, 6531655, 81647499, 4669631, 76604373, 7763326, 0354320, 68377813, 9212980 ####[facility] [address] [place] [address] Progress Note-Nurseon 2023 Progress Note-Nurse ECG delayed due to complaints of chest pain not till patient in room 5 Normal [facility] Troponin 0 Hr.on 10-07-2023 Troponin 9.90 pg/mL Low 15.90-38.40 [facility] Comment on above: Result Comment: The 95% CI (Confidence Interval) PPV (Positive Predictive Value) for myocardial infarction in females is 38 pg/mL, in males 51 pg/mL. The results should be used in conjunction with clinical conditions of myocardial infarction.(Access High Sensitivity Troponin I Instructions For Use, [employer], May 2018) Performed By: #### 2 272254, 4919814, 10434941, 0100860, 95792718, 1116195, 5695639, 63058311, 8990070 ####[facility] [address] [place] [address] Troponin 3 Hr.on 10-07-2023 Troponin 8.60 pg/mL Low 15.90-38.40 [facility] Comment on above: Result Comment: The 95% CI (Confidence Interval) PPV (Positive Predictive Value) for myocardial infarction in females is 38 pg/mL, in males 51 pg/mL. The results should be used in conjunction with clinical conditions of myocardial infarction.(Access High Sensitivity Troponin I Instructions For Use, [employer], May 2018) Performed By: #### 1 5880337 ####[facility] [address] [place] [address] XR Chest Single Viewon 10-07 XR Chest Single View Normal [facility] eGFRon 10-07-2023 GFR/1.73 sq M.predicted among non-blacks MDRD (S/P/Bld) [Vol rate/Area] mL/min/{1.73_m2} Normal >=59 [facility] Comment on above: Order Comment: Order added by Discern Expert. Performed By: #### 2 095845, 8559785, 92967434, 3153194, 35052751, 9081689, 4540813, 00401200, 9817012 ####[facility] [address] [place] [address] ECG 12 Leadon 09-16-2023 EKG shows possibilit y of atrial fibrillation but cannot rule out also atrial flutter atypical with 221 AV conduction rate of 112 bpm QRS 100 ms QT corrected 164 ms. Rhythm strip shows the same pattern. [facility] Work Phone: [facility] Work Phone: Heart and Vascular Office/Cl inic Noteon 08-29-2023 Heart and Vascular Office/Clinic Note Normal [facility] Comment on above: Result Comment: Elec tronically Signed By: Zia LEMONS, Jaja Dash\.br\Date and Time Signed: 08/29/23 11:45 EST\.br\Electronically Co-Signed By: Deonte Remy\.br\Date and Time Co-Signed: 06/25/23 18:47 EDT Cardiac Device Check - Remot amanda 07-16-2023 Radiology Study observation (narrative) [facility] Work Phone: Cardiac Device Check - Remot eOrdered By: Geovani Mack on 07-16-2023 [facility] Work Phone: Physician Orderon 06-26-2023 Physician Order [id number]#1.0 0CD:127 Normal [facility] Ambulatory Visit Summaryon 0 06-25-2023 Ambulatory Visit Summary Normal [facility] Outside Recordson 05-06-2023 Outside Records [id number]#1 .00OTGTIFF Normal [facility] BASIC METABOLIC PANELon 07 Anion gap [Moles/Vol] 12 mmol/L 10 - 2 0 mmol/L [facility] Comment on above: Performed By: #### B #### [address] [id number] Calcium [Mass/Vol] 9.0 mg/dL 8.6 - 10. 3 mg/dL [facility] Comment on above: Performed By: #### B MP #### [address] [id number] Chloride [Moles/Vol] 104 mmol/L 98 - 10 7 mmol/L [facility] Comment on above: Performed By: #### B MP #### [address] [id number] Creatinine [Mass/Vol] 1.00 mg/dL 0.50 - 1.30 mg/dL [facility] Comment on above: Performed By: #### B MP #### [address] [id number] GFR/1.73 sq M.predicted among non-blacks MDRD (S/P/Bld) [Vol rate/Area] 81 mL/min/{1.73_m2} Normal >90 [facility] Comment on above: Result Comment: CALC ULATIONS OF ESTIMATED GFR ARE PERFORMED USING THE 2020 CKD-EPI STUDY REFIT EQUATION WITHOUT THE RACE VARIABLE FOR THE IDMS-TRACEABLE CREATININE METHODS. https://jasn.asnjournals.org/content//ASN.33427 34762 Performed By: #### B MP #### [address] [id number] Glucose [Mass/Vol] 164 mg/dL High 74 - 99 mg/dL [facility] Comment on above: Performed By: #### B MP #### [address] [id number] HCO3 (Bld) [Moles/Vol] 28 mmol/L Normal 21 - 32 [facility] Comment on above: Performed By: #### B MP #### [address] [id number] Potassium [Moles/Vol] 4.2 mmol/L 3.5 - 5.3 mmol/L [facility] Comment on above: Performed By: #### B MP #### [address] [id number] Sodium [Moles/Vol] 140 mmol/L 136 - 145 mmol/L [facility] Comment on above: Performed By: #### B MP #### [address] [id number] Urea nitrogen [Mass/Vol] 43 mg/dL High 6 - 23 mg/dL [facility] Comment on above: Performed By: #### B MP #### [address] [id number] Basic metabolic 2000 panelon 04-06-2023 CO2 [Moles/Vol] 28 mmol/L 21 - 32 mmol/L [facility] GFR MALE 81 - PINF [facility] Comment on above: CALCULATIONS OF CEZAR MATED GFR ARE PERFORMED USING THE 2020 CKD-EPI STUDY REFIT EQUATION WITHOUT THE RACE VARIABLE FOR THE IDMS-TRACEABLE CREATININE METHODS. https://jasn.asnjournals.org/content/early//ASN.65769 73185 CBCon 04-06-2023 Erythrocyte distribution width (RBC) [Ratio] 13.2 % Normal 11.5 - 14.5 [facility] Comment on above: Performed By: #### C BC #### [address] [id number] Hematocrit (Bld) [Volume fraction] 36.4 % Low 41.0 - 52.0 [facility] Comment on above: Performed By: #### C BC #### [address] [id number] Hemoglobin (Bld) [Mass/Vol] 11.5 g/dL Low 13.5 - 17.5 [facility] Comment on above: Performed By: #### C BC #### [address] [id number] MCHC (RBC) [Mass/Vol] 31.6 g/dL Low 32.0 - 36.0 [facility] Comment on above: Performed By: #### C BC #### [address] [place] [id number] MCV (RBC) [Entitic vol] 90 fL Normal 80 - 100 [facility] Comment on above: Performed By: #### C BC #### [address] [id number] Platelets (Bld) [#/Vol] 258 10*3/uL Normal 150 - 450 [facility] Comment on above: Performed By: #### C BC #### [address] [id number] RBC 4.04 x10E12/L Low 4.50 - 5.90 [facility] Comment on above: Performed By: #### C BC #### [address] [id number] WBC (Bld) [#/Vol] 7.0 10*3/uL Normal 4.4 - 11.3 [facility] Comment on above: Performed By: #### C BC #### [address] [id number] CBC panel Auto (Bld)on 04-06 Erythrocyte distribution width (RBC) [Ratio] 13.2 % 11.5 - 14.5 % [facility] Hematocrit (Bld) [Volume fraction] 36.4 % Low 41.0 - 52.0 % [facility] Hemoglobin (Bld) [Mass/Vol] 11.5 g/dL Low 13.5 - 17.5 g/dL [facility] MCHC (RBC) [Mass/Vol] 31.6 g/dL Low 32.0 - 36.0 g/dL [facility] MCV (RBC) [Entitic vol] 90 fL 80 - 100 fL [facility] Platelets (Bld) [#/Vol] 258 10*3/uL [facility] RBC (Bld) [#/Vol] 4.04 10*6/uL Low [facility] WBC (Bld) [#/Vol] 7.0 10*3/uL [facility] COAGULATION SCREENon 023 aPTT Coag (Bld) [Time] 33 s Normal 27 - 38 [facility] Comment on above: Result Comment: Note new reference range as of 03/24/2023 at 10:00am. Performed By: #### C OAGS #### [address] [id number] PT Coag (PPP) [Time] 11.8 s Normal 9.8 - 12.8 [facility] Comment on above: Result Comment: Note new reference range as of 03/24/2023 at 10:00am. Performed By: #### C OAGS #### [address] [id number] PT, INR 1.0 Normal 0.9 - 1.1 [facility] Comment on above: Performed By: #### C OAGS #### [address] [id number] Discharge [id number] 023 Discharge Profile2 Discharge Orders: Code Status: Code Status at Discharge: Full Code DNR Order Additional Instructions (peds only): Appointments: Follow-Up Appointment 01: Physician/Dept/Service [facility] Reason for ReferralIncision Check Scheduled Date/[id number] 09:30 [facility] Office, [address] [place] [address], [address] Phone [phone] Follow-Up Appointment 02: Physician/Dept/Service [facility] Reason for ReferralDevice check Scheduled Date/[id number]-[id number] 07:30 [facility] Phone [phone] Follow-Up Appointment 03: Physician/Dept/Service Dr Mack Reason for ReferralFollow-up Scheduled Date/Ajof56-[id number] 08:30 [facility] Office, [address] [place] [address], [address] Phone [phone] Electronic Signatures: Mahesh Araiza (COOR) (Signed 06-Apr-2023 09:57) Authored: Discharge Orders, Appointments, Gold Form - Husker Operator Summary Last Updated: 06-Apr-2023 09:57 by Hostert, Mahesh (COOR) Normal [facility] Electrocardiogram 12 Leadon 04-06-2023 Electrocardiogram 12 Lead Ventricular Rate 58 Atrial Rate 58 P-R Interval 150 QRS Duration 118 Q-T Interval 444 QTC Calculation(Bazett) 435 P [place] 76 R [place] -43 T [place] 10 QRS Count 10 Q Onset 228 P Onset 153 P Offset 184 T Offset 450 QTC Fredericia 438 Diagnosis Class Abnormal Diagnosis Sinus bradycardia Left axis deviation Nonspecific intraventricular conduction delay Abnormal ECG No previous ECGs available Confirmed by Amol Reno ([id number]) on 04/06/2023 5:30:31 PM Normal [facility] Electrocardiogram 12 LeadOrd ered By: Amol Reno on 04-06-2023 Atrial Rate 58 BPM [facility] Work Phone: [phone] P [place] 76 degrees [facility] Work Phone: [phone] P Offset 184 ms [facility] Work Phone: [phone] P Onset 153 ms [facility] Work Phone: [phone] UT Interval 150 ms [facility] Work Phone: [phone] Q Onset 228 ms [facility] Work Phone: [phone] QRS Count 10 beats [facility] Work Phone: [phone] QRS Duration 118 ms [facility] Work Phone: [phone] QT Interval 444 ms [facility] Work Phone: [phone] QTC Calculation(Bazett) 435 ms [facility] Work Phone: [phone] QTC Fredericia 438 ms [facility] Work Phone: R [place] -43 degrees [facility] Work Phone: [phone] T [place] 10 degrees [facility] Work Phone: [phone] T Offset 450 ms [facility] Work Phone: [phone] Ventricular Rate 58 BPM [facility] Work Phone: [phone] [facility] Work Phone: [phone] Electrocardiogram 12 Leadon 04-06-2023 Sinus bradycardia Left axis deviation Nonspecific intraventricular conduction delay Abnormal ECG No previous ECGs available Confirmed by Amol Reno ([id number]) on 04/06/2023 5:30:31 PM Amol De La Cruz M D - 04/06/2023 Sinus bradycardia Left axis deviation Nonspecific intraventricular conduction delay Abnormal ECG No previous ECGs available Confirmed by Amol Reno ([id number]) on 04/06/2023 5:30:31 PM [facility] Work Phone: No Panel Informationon 04-06 [facility] Interpretation and review of laboratory results Abnormal [facility] Order Reconciliationon 04-06 Order Reconciliation Page 1 Discharge Reconciliation Document Reconciliation Type: Discharge requested on behalf of Esther Adams (Advanced Practice Nurse) done by Esther Adams (HYDROGRAPHIC ENGINEER-[facility]) Discharge - Reconciliation: 06-Apr-2023 14:32 by: Esther Adams (HYDROGRAPHIC ENGINEER-ACOUSTIC INTELLIGENCE SPECIALIST) Home Medications EnteredHOME MEDICATIONS AT DISCHARGE DateReconciliation [...] hour(s) 3 (more content not included)... Normal [facility] PT and aPTT panel Coag (PPP) on 04-06-2023 aPTT Coag (PPP) [Time] 33 s [facility] Comment on above: Note new reference r renetta as of 03/24/2023 at 10:00am. INR Coag (PPP) [Relative time] 1.0 {INR} 0.9 - 1.1 [facility] PT Coag (PPP) [Time] 11.8 s [facility] Comment on above: Note new reference r renetta as of 03/24/2023 at 10:00am. Patient Profile - Preop v3on 04-06-2023 Patient Profile - Preop v3 Patient Profile - Preop: Initial Info: Patient DemographicsName: OTILIO SUAREZ Date: 1955 Address: [address] [place] [address] Primary Phone [phone] How to be AddressedJerry Spoken Language PreferredEnglish Source of Informationpatient Stated Reason for Admissionloop implant Primary Contact Name and NumberShawn Limitations on Visitors/Phone Callsnone Medications Brought to Hospitalno General Health: Weight in kg96 kilogram(s) Weight in oxx983.6 pound(s) Weight Methodactual (measured) Scale Typestanding Height in lkehdu92 inch(es) Height Methodstated Patient or Family Member [...] penicillin: Drug, Unknown, Active Electronic Signatures: Paula Beal (LISA) (Signed 06-Apr-2023 09:58) Authored: Initial Info, General Health, Health Mgmt, Relationship/Environ, Tobacco Use, Additional Information Last Updated: 06-Apr-2023 09:58 by Paula Beal (LISA) [facility] Heart and Vascular Office/Cl inic Noteon 03-29-2023 Heart and Vascular Office/Clinic Note [facility] Comment on above: Result Comment: Elec tronically Signed By: Zia LEMONS, Jaja Dash\.br\Date and Time Signed: 03/29/23 14:48 EDT\.br\Electronically Co-Signed By: Afsaneh Puente\.br\Date and Time Co-Signed: 03/26/23 15:29 EDT Physician Orderon 03-27-2023 Physician Order [id number]#1. 00CD:127 [facility] Consent for Treatmenton 03-06 Consent for Treatment [id number] [id number]#1.00 CD:127 [facility] Retirement Recordson 03-26 Retirement Records [id number]#1.0 0CD:127 [facility] Outside Cardiovascularon Outside Cardiovascular [id number]#1. 00CD:127 [facility] Outside Cardiovascularon Outside Cardiovascular [id number]#1. 00CD:127 [facility] Office Visit (Cardiology)on 03-24-2023 Follow-up visit Diagnoses/Problems [...] - Retrospective Authorization; Requested for:24Mar2023; Patient Instructions IVida LPN, am scribing for and in the presence [...] during thi (more content not included)... Normal [employer] Tobacco Screening.on 023 Adult depression screening assessment No [facility] 305 DO Work Phone: Fall risk assessment a) No falls within the last year [facility] 305 DO Work Phone: Tobacco use status CPHS b) No [facility] 305 DO Work Phone: Outside Recordson 03-04-2023 Outside Records [id number]#1. 00CD:127 Normal [facility] Outside Recordson 03-03-2023 Outside Records [id number]#1.0 0OTGTIFF [facility] Progress Note-Nurseon 2022 Progress Note-Nurse [id number]#1. 00CD:127 Normal [facility] Consent for Treatmenton 02-03 Consent for Treatment [id number]#1.0 0CD:127 Normal [facility] Heart and Vascular Office/Cl inic Noteon 02-24-2023 Heart and Vascular Office/Clinic Note Normal [facility] Comment on above: Result Comment: Elec tronically Signed By: TONY GILMORE, Bushra Guo\.br\Date and Time Signed: 02/24/23 13:45 EDT Progress Note-Physicianon Progress Note-Physician [id number]#1. 00CD:127 Normal [facility] Auto Diffon 02-17-2023 Basophils/100 WBC (Bld) 0.7 % Normal 0.0-2.0 [facility] Comment on above: Order Comment: Order Added by Discern Expert. Performed By: #### 2 243052, 5004736, 53484705, 68037162, 2220717, 5205681, 61549237, 9725402 ####[address] [place] [address] Basophils/Leukocytes Auto (Bld) [Pure # fraction] 0.1 E9/L Normal 0.0-0.2 [facility] Comment on above: Order Comment: Order Added by Discern Expert. Performed By: #### 2 525395, 1177607, 20731367, 95885647, 1821824, 9954736, 40956234, 3791494 ####[address] [place] [address] Eosinophils/100 WBC (Bld) 7.6 % Normal 0.0-8.0 [facility] Comment on above: Order Comment: Order Added by Discern Expert. Performed By: #### 2 878763, 0986363, 91760751, 69457521, 6601506, 7889674, 19265666, 2538728 ####[address] [place] [address] Eosinophils/Leukocytes Auto (Bld) [Pure # fraction] 0.5 E9/L Normal 0.0-0.5 [facility] Comment on above: Order Comment: Order Added by Discern Expert. Performed By: #### 2 601816, 9848852, 13903442, 65673170, 7267591, 0319293, 38377686, 5754368 ####[address] [place] [address] Lymphocytes/100 WBC (Bld) 41.2 % Normal 14.0-50.0 [facility] Comment on above: Order Comment: Order Added by Discern Expert. Performed By: #### 2 433814, 5922776, 86783251, 90059705, 6462793, 1683534, 26321253, 3749574 ####[address] [place] [address] Lymphocytes/Leukocytes Auto (Bld) [Pure # fraction] 2.8 E9/L Normal 1.0-4.0 [facility] Comment on above: Order Comment: Order Added by Discern Expert. Performed By: #### 2 898358, 1920849, 68796910, 07518167, 0027596, 2571115, 42275178, 6593205 ####[address] [place] [address] Monocytes/100 WBC (Bld) 6.9 % Normal 4.0-14.0 [facility] Comment on above: Order Comment: Order Added by Discern Expert. Performed By: #### 2 757668, 0206935, 84050441, 37103894, 2902257, 9169552, 71449442, 7509217 ####[facility] [address] [place] [address] Monocytes/Leukocytes Auto (Bld) [Pure # fraction] 0.5 E9/L Normal 0.2-1.0 [facility] Comment on above: Order Comment: Order Added by Discern Expert. Performed By: #### 2 235155, 0831344, 74237184, 35305560, 8417949, 0410314, 94661016, 4100689 ####[facility] [address] [place] [address] Neutrophils/100 WBC (Bld) 43.6 % Normal 36.0-75.0 [facility] Comment on above: Order Comment: Order Added by Discern Expert. Performed By: #### 2 281104, 4918202, 97549123, 79327707, 5059401, 3085862, 58672187, 8801798 ####[facility] [address] [place] [address] Neutrophils/Leukocytes Auto (Bld) [Pure # fraction] 2.9 E9/L Normal 2.0-7.5 [facility] Comment on above: Order Comment: Order Added by Discern Expert. Performed By: #### 2 490234, 6989576, 20699816, 17531493, 5078008, 0482239, 71539085, 9560039 ####[facility] [address] [place] [address] BMPon 02-17-2023 Creatinine [Mass/Vol] 1.1 mg/dL Normal 0.5-1.3 [facility] Comment on above: Performed By: #### 2 575032, 2385365, 74198218, 05495497, 0918759, 1250709, 93048125, 5548606 ####[facility] [address] [place] [address] Urea nitrogen [Mass/Vol] 26 mg/dL High 5-21 [facility] Comment on above: Performed By: #### 2 718584, 6182457, 51863115, 83621360, 9007615, 5104364, 55496900, 9636702 ####[facility] [address] [place] [address] Urea nitrogen/Creatinine [Mass ratio] 24 No Units High 10-20 [facility] Comment on above: Performed By: #### 2 606173, 0202511, 37909057, 49404251, 4450064, 9926565, 39741740, 9892795 ####[facility] [address] [place] [address] Anion gap [Moles/Vol] 12 mmol/L Normal 6-16 [facility] Comment on above: Performed By: #### 2 735210, 9998643, 91081821, 99585578, 7761379, 6605235, 38032746, 4138605 ####[facility] [address] [place] [address] Calcium [Mass/Vol] 9.2 mg/dL Normal 8.9-11.1 [facility] Comment on above: Performed By: #### 2 147117, 6210745, 19719413, 38859184, 9747816, 0367585, 71107021, 8818027 ####[facility] [address] [place] [address] Chloride [Moles/Vol] 103 mmol/L Normal 101-111 [facility] Comment on above: Performed By: #### 2 304835, 6894811, 19570463, 36127065, 2128358, 8616596, 48388508, 6285756 ####[facility] [address] [place] [address] CO2 [Moles/Vol] 27 mmol/L Normal 21-31 [facility] Comment on above: Performed By: #### 2 014994, 3912927, 47094884, 70503928, 9456895, 4732527, 60662705, 8283281 ####[facility] [address] [place] [address] Glucose [Mass/Vol] 148 mg/dL Normal 55-199 [facility] Comment on above: Result Comment: If t his glucose result represents a fasting glucose, interpretation should refer to the following reference range: 55-99 mg/dL Performed By: #### 2 020622, 3088394, 04480153, 40921857, 9566936, 4445031, 13361122, 8850198 ####[facility] [address] [place] [address] Potassium [Moles/Vol] 4.3 mmol/L Normal 3.5-5.3 [facility] Comment on above: Performed By: #### 2 417493, 5083548, 28710811, 52656508, 3943538, 6252644, 50301186, 2333435 ####[facility] [address] [place] [address] Sodium [Moles/Vol] 138 mmol/L Normal 135-145 [facility] Comment on above: Performed By: #### 2 958722, 7027935, 59591908, 44243460, 1033535, 9254342, 74509785, 1757842 ####[facility] [address] [place] [address] Blood Gas Art, with Lytes, G kj, [place] 02-17-2023 a/A Ratio Art 86.90 % Normal >=0.80 [facility] Comment on above: Performed By: #### 4 00982363 ####[facility] [address] [place] [address] AaDO2 Art 13.6 mmHg Normal 5.0-15.0 [facility] Comment on above: Performed By: #### 4 99613505 ####[facility] [address] [place] [address] Allens Test Positive Normal [facility] Comment on above: Performed By: #### 4 46586576 ####[facility] [address] [place] [address] Base Excess Arterial 0.9 mmol/L Low >=2.8 [facility] Comment on above: Performed By: #### 4 50375218 ####[facility] [address] [place] [address] cCa2+ Art 4.86 mg/dL Normal 4.40-5.30 [facility] Comment on above: Performed By: #### 4 60187422 ####[facility] [address] [place] [address] cCl- Art 105.0 mmol/L Normal 101.0-111.0 [facility] Comment on above: Performed By: #### 4 90065771 ####[facility] [address] [place] [address] cGlu Art 118 mg/dL High 55-99 [facility] Comment on above: Performed By: #### 4 94039289 ####[facility] [address] [place] [address] cK+ Art 3.8 mmol/L Normal 3.5-5.3 [facility] Comment on above: Performed By: #### 4 65018518 ####[facility] [address] [place] [address] cLac Art .6 mmol/L Normal .5-2.2 [facility] Comment on above: Performed By: #### 4 21024201 ####[facility] [address] [place] [address] aitchbone breaker+ Art 140.0 mmol/L Normal 135.0-145.0 [facility] Comment on above: Performed By: #### 4 97737372 ####[facility] [address] [place] [address] Drawn by MALONE Invalid Interpretation Code [facility] Comment on above: Performed By: #### 4 08288514 ####[facility] [address] [place] [address] FCOHb Art 0.8 % Low 1.5-4.9 [facility] Comment on above: Result Comment: Refe rence rangeNonsmoker <1.5%Smoker <5.0%Heavy Smoker <9.0% Performed By: #### 4 05502890 ####[facility] [address] [place] [address] FIO2 BG 21 Invalid Interpretation Code [facility] Comment on above: Performed By: #### 4 11892534 ####[facility] [address] [place] [address] FMetHb Art 0.4 % Normal 0.0-1.9 [facility] Comment on above: Performed By: #### 4 42788676 ####[address] [place] [address] FO2Hb Art 97.0 % Normal 93.0-100.0 [facility] Comment on above: Performed By: #### 4 60937403 ####[facility] [address] [place] [address] HCO3 (Bld) [Moles/Vol] 25.2 mmol/L Normal 22.0-26.0 [facility] Comment on above: Performed By: #### 4 39041232 ####[facility] [address] [place] [address] Hemoglobin (Bld) [Mass/Vol] 11.1 g/dL Low 12.0-17.0 [facility] Comment on above: Performed By: #### 4 00172354 ####[facility] [address] [place] [address] Oxygen saturation in Blood 98.1 % Normal 95.0-100.0 [facility] Comment on above: Performed By: #### 4 85890526 ####[facility] [address] [place] [address] P CO2 Arterial 37.1 mmHg Normal 35.0-45.0 [facility] Comment on above: Performed By: #### 4 67561561 ####[facility] [address] [place] [address] P O2 Arterial 90.0 mmHg Normal 80.0-100.0 [facility] Comment on above: Performed By: #### 4 46055810 ####[facility] [address] [place] [address] pH Arterial 7.437 Normal 7.350-7.450 [facility] Comment on above: Performed By: #### 4 80666578 ####[facility] [address] [place] [address] Sample Site R Radial Normal [facility] Comment on above: Performed By: #### 4 19177083 ####[address] [address] Sample Type Arterial Draw Normal [facility] Comment on above: Performed By: #### 4 36609477 ####[place] [address] CBC w/ Auto Diffon 3 Erythrocyte distribution width (RBC) [Ratio] 14.5 % High 10.9-14.2 [facility] Comment on above: Performed By: #### 2 256302, 7252926, 88273993, 11878225, 1522539, 3968247, 71192869, 1868331 ####[address] [place] [address] Hematocrit (Bld) [Volume fraction] 36.9 % Low 37.7-49.0 [facility] Comment on above: Performed By: #### 2 018274, 7172631, 24435496, 28055510, 3040694, 2796325, 21465844, 5890491 ####[address] [place] [address] Hemoglobin (Bld) [Mass/Vol] 11.6 g/dL Low 13.5-17.5 [facility] Comment on above: Performed By: #### 2 944113, 3419234, 78769763, 40191078, 6133865, 8097098, 04943553, 1490675 ####[facility] [address] [place] [address] MCH (RBC) [Entitic mass] 27.5 pg Normal 27.0-34.0 [facility] Comment on above: Performed By: #### 2 037069, 5049356, 40087023, 39440950, 8544436, 9543274, 38586920, 8061376 ####[facility] [address] [place] [address] MCHC (RBC) [Mass/Vol] 31.3 g/dL Low 31.4-36.0 [facility] Comment on above: Performed By: #### 2 416971, 7889900, 72865801, 83675077, 1832117, 0791814, 69773078, 5342903 ####[address] [address] MCV (RBC) [Entitic vol] 87.8 fL Normal 80.0-100.0 [facility] Comment on above: Performed By: #### 2 638912, 1906201, 26717948, 83668561, 7547903, 1412842, 54761581, 4980025 ####[address] [address] Platelet mean volume (Bld) [Entitic vol] 8.6 fL Normal 6.4-10.8 [facility] Comment on above: Performed By: #### 2 661345, 4945234, 49698256, 43211839, 1879816, 5352272, 68813731, 7343952 ####[address] [address] Platelets (Bld) [#/Vol] 185.0 E9/L Normal 150.0-500.0 [facility] Comment on above: Performed By: #### 2 803784, 9329257, 17021043, 19798680, 8478731, 9305933, 72494107, 6888645 ####[facility] [address] [place] [address] RBC (Bld) [#/Vol] 4.2 E12/L Low 4.3-5.9 [facility] Comment on above: Performed By: #### 2 560322, 9048253, 30492389, 09350527, 4862466, 0724537, 01222084, 5779910 ####[facility] [address] [place] [address] WBC corrected for nucl RBC Auto (Bld) [#/Vol] 6.8 E9/L Normal 4.0-11.0 [facility] Comment on above: Performed By: #### 2 515040, 0810670, 64596032, 45875960, 8136886, 8813235, 03507981, 5990200 ####[facility] [address] [place] [address] CT Head or Brain w/o Contras ton 02-17-2023 CT Head or Brain w/o Contrast Normal [facility] Consent for Treatmenton 02-02 Consent for Treatment [id number]#1. 00CD:127 Normal [facility] Discharge Instructionson Discharge Instructions [id number]#1. 00CD:127 Normal [facility] ED Clinical Summaryon 2022 ED Clinical Summary Normal [facility] ED Note-Physicianon 02-18-20 23 ED Note-Physician Normal [facility] Comment on above: Result Comment: Elec tronically Signed By: Tita Albright DO.br\Date and Time Signed: 02/17/23 03:46 EDT ED Patient Education Noteon 02-17-2023 ED Patient Education Note Normal [facility] ED Patient Summaryon 023 ED Patient Summary Normal [facility] Hep Func Panelon 02-17-2023 Bilirubin.indirect [Mass or moles/Vol] UTC Abnormal 0.1-0.9 [facility] Comment on above: Result Comment: Resu lt verified by Discern Rule. Performed result [facility] (Unable to Calculate) was sent as an Alpha code due the inability to calculate a valid numeric value. Performed By: #### 2 574194, 0009595, 21357664, 51528304, 0924257, 6598986, 39742834, 4259003 ####[facility] [address] [place] [address] Albumin [Mass/Vol] 3.7 g/dL Normal 3.3-5.0 [facility] Comment on above: Performed By: #### 2 643409, 5693194, 76330067, 93676645, 1625728, 8280959, 28697611, 4504008 ####[address] [place] [address] Albumin/Globulin (S) [Mass conc ratio] 1.3 Normal 1.1-2.2 [facility] Comment on above: Performed By: #### 2 999102, 0067560, 50621655, 04907359, 2010207, 1295773, 12551257, 9950937 ####[address] [place] [address] ALP [Catalytic activity/Vol] 62 Int._Unit/L Normal 21-98 [facility] Comment on above: Performed By: #### 2 626697, 0416088, 81328920, 63311654, 2847779, 8833667, 02883047, 5829609 ####[facility] [address] [place] [address] ALT No additional P-5'-P [Catalytic activity/Vol] 15 Int._Unit/L Normal 6-46 [facility] Comment on above: Performed By: #### 2 435912, 2604678, 57843350, 42552216, 4535580, 1526945, 11005243, 0933407 ####[address] [place] [address] AST [Catalytic activity/Vol] 20 Int._Unit/L Normal 5-43 [facility] Comment on above: Performed By: #### 2 693552, 6485236, 88670828, 79513353, 6061098, 2448762, 53590143, 0418117 ####[facility] [address] [place] [address] Bilirubin [Mass/Vol] 0.3 mg/dL Normal 0.0-1.1 [facility] Comment on above: Performed By: #### 2 339956, 9918451, 95832505, 07432747, 0287719, 4413891, 93718362, 4971322 ####[address] [place] [address] Globulin (S) [Mass/Vol] 2.9 g/dL Normal 1.4-4.0 [facility] Comment on above: Performed By: #### 2 496875, 4179147, 06406063, 19405905, 5934404, 3458277, 48638477, 6187641 ####[facility] [address] [place] [address] Protein [Mass/Vol] 6.6 g/dL Normal 6.0-7.8 [facility] Comment on above: Performed By: #### 2 858397, 2043642, 64063005, 26484919, 2897995, 2277610, 16232627, 1877788 ####[facility] [address] [place] [address] Bilirubin.direct [Mass/Vol] mg/dL Normal 0.1-0.4 [facility] Comment on above: Performed By: #### 2 480225, 1399453, 57422702, 37048391, 2494368, 6735244, 03637420, 9776609 ####[facility] [address] [place] [address] Magnesiumon 02-17-2023 Magnesium [Mass/Vol] 1.7 mg/dL Normal 1.3-2.4 [facility] Comment on above: Performed By: #### 2 725809, 9704995, 60305259, 08656191, 9306825, 1597076, 90668452, 7057956 ####[facility] [address] [place] [address] Monitor Recordon 02-17-2023 Monitor Record [id number]#1. 00CD:127 Normal [facility] Monitor Record [id number]#1. 00CD:127 Normal [facility] Retirement Recordson 02-17 Retirement Records [id number]#1. 00CD:127 Normal [facility] PT & PTTon 02-17-2023 aPTT Coag (PPP) [Time] 31.5 second(s) Normal 25.1-36.5 [facility] Comment on above: Result Comment: Para [...] the same coagulation reagent and instrumentation as [facility]. Currently there are no coagulation studies available worldwide for children to 14 days, and no normal ranges. Heparin therapeutic range (represented by Anti-Factor Xa activity of 0.2 - 0.4 U/mL) corresponds to PTT of 56.6 - 109.0 sec. Performed By: #### 2 267082, 9560711, 66455047, 53130666, 4666439, 2344643, 07923608, 6687211 ####[facility] [address] [place] [address] INR Coag (PPP) [Relative time] 1.0 {INR} Invalid Interpretation Code [facility] Comment on above: Result Comment: INR results are specifically intended to assess patients stabilized on long-term Anticoagulation therapy suggested INR?s ?Less Intensive Anticoagulation? 2.0 ? 3.0Conventional Range 3.0 ? 4.5 Performed By: #### 2 942391, 0894523, 61905390, 52914121, 4011263, 5577010, 30452913, 2487633 ####[facility] [address] [place] [address] PT Coag (PPP) [Time] 11.1 second(s) Normal 9.4-12.5 [facility] Comment on above: Result Comment: 15 [...] the same coagulation reagent and instrumentation as [facility]. Currently there are no coagulation studies available worldwide for children to 14 days, and no normal ranges. Performed By: #### 2 405541, 7654481, 17981251, 25724459, 5416267, 8595680, 53834817, 6201173 ####[facility] [address] [place] [address] Pre-Arrival Noteon 3 Pre-Arrival Note Normal [facility] RAD - Preliminary Cat Scan R eporton 02-17-2023 RAD - Preliminary Cat Scan Report [id number]#1.0 0CD:127 Normal [facility] Transfer Documentson 023 Transfer Documents [id number]#1. 00CD:127 Normal [facility] Troponin 0 Hr.on 02-17-2023 Troponin I.cardiac [Mass/Vol] 5.80 pg/mL Low 15.90-38.40 [facility] Comment on above: Result Comment: The 95% CI (Confidence Interval) PPV (Positive Predictive Value) for myocardial infarction in females is 38 pg/mL, in males 51 pg/mL. The results should be used in conjunction with clinical conditions of myocardial infarction.(Access High Sensitivity Troponin I Instructions For Use, [employer], May 2018) Performed By: #### 2 663584, 5643389, 64608760, 89856531, 7527988, 6526851, 42169328, 8183931 ####[facility] [address] [place] [address] Troponin 3 Hr.on 02-17-2023 Troponin I.cardiac [Mass/Vol] 6.30 pg/mL Low 15.90-38.40 [facility] Comment on above: Result Comment: The 95% CI (Confidence Interval) PPV (Positive Predictive Value) for myocardial infarction in females is 38 pg/mL, in males 51 pg/mL. The results should be used in conjunction with clinical conditions of myocardial infarction.(Access High Sensitivity Troponin I Instructions For Use, [employer], May 2018) Performed By: #### 1 2871396 ####[facility] [address] [place] [address] XR Chest Single Viewon 02-17 XR Chest Single View Normal [facility] eGFRon 02-17-2023 GFR/1.73 sq M.predicted among non-blacks MDRD (S/P/Bld) [Vol rate/Area] 73 mL/min/1.73 m2 Normal >=59 [facility] Comment on above: Order Comment: Order added by Discern Expert. Result Comment: Publishing Director lokesh kidney disease could be indicated at eGFR's of less than 60 mL/min/1.73m2. Kidney failure is indicated at less than 15 mL/min/1.73m2. Performed By: #### 2 632027, 4402121, 93466041, 39992219, 9185387, 1704145, 17052834, 9792555 ####[facility] [address] [place] [address] Discharge Instructionson Discharge Instructions [id number] 0CD:127 Normal [facility] Transfer Documentson 023 Transfer Documents [id number]#1.0 0CD:127 Normal [facility] CHEMISTRYOrdered By: Arpita ROP User on 02-14-2023 Glucose [Mass/Vol] 112 mg/dL High 55 - 99 mg/dL [facility] POC Subsection Comment on above: Result Comment: Clemente christopher RN/ POC Device SN [id number] Invalid Interpretation Code [facility] POC Subsection POC User ID [id number] Invalid Interpretation Code [facility] POC Subsection POC Username JONH MOCTEZUMA Invalid Interpretation Code [facility] POC Subsection Capillary Glucose POCon 02-02 Glucose [Mass/Vol] 112 mg/dL High 55-99 [facility] Comment on above: Result Comment: Clemente christopher RN/ Performed By: #### 2 [id number] ####[facility] [address] [place] [address] Cortisolon 02-14-2023 Cortisol [Mass/Vol] 18.8 microgram/dL Invalid Interpretation Code 6.2-19.4 [facility] Comment on above: Result Comment: Sandy denton Note: The reference interval and flagging forthis test is for an AM collection. If this is a PMcollection please use: Cortisol PM: 2.3-11.9Performed at: [facility] [id number] [place], [place] [id number] PhD Desmond Jimenez Performed By: #### 2 [id number] ####[facility] [address] [place] [address] Cortisol [Mass/Vol] 22.4 microgram/dL High 6.2-19.4 [facility] Comment on above: Result Comment: Plea se Note: The reference interval and flagging forthis test is for an AM collection. 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 Daughter transported. Normal [facility] Comment on above: Result Comment: Elec tronically Signed By: Tommie GONZALEZ, Meredith\.br\Date and Time Signed: 02/14/23 13:43 EDT Monitor Recordon 02-14-2023 Monitor Record [id number]#1. 00CD:127 Normal [facility] Monitor Record [id number]#1. 00CD:127 Normal [facility] Monitor Record [id number] 50 [id number]#1. 00CD:127 Normal [facility] Ammoniaon 02-13-2023 Ammonia (P) [Moles/Vol] 18 mcmol Normal 11-35 [facility] Comment on above: Performed By: #### 1 0847059, 4600217, 89999826, 8699171, 3413971, 28158524, 0358557, 5393680 ####[facility] [address] [place] [address] Auto Diffon 02-13-2023 Basophils/100 WBC (Bld) 0.9 % Normal 0.0-2.0 [facility] Comment on above: Order Comment: Order Added by Discern Expert. Performed By: #### 1 1349663, 9964651, 14763088, 7448485, 4513307, 01643962, 6656469, 7199843 ####[facility] [address] [place] [address] Basophils/Leukocytes Auto (Bld) [Pure # fraction] 0.1 E9/L Normal 0.0-0.2 [facility] Comment on above: Order Comment: Order Added by Discern Expert. Performed By: #### 1 9623145, 1415562, 41723366, 4215522, 8584782, 02276007, 1330749, 3272740 ####[address] [place] [address] Eosinophils/100 WBC (Bld) 7.2 % Normal 0.0-8.0 [facility] Comment on above: Order Comment: Order Added by Discern Expert. Performed By: #### 1 7096353, 7790542, 02730055, 0955841, 0494113, 40405172, 9690782, 3177703 ####[address] [place] [address] Eosinophils/Leukocytes Auto (Bld) [Pure # fraction] 0.4 E9/L Normal 0.0-0.5 [facility] Comment on above: Order Comment: Order Added by Discern Expert. Performed By: #### 1 8606314, 6068857, 25481992, 4790085, 5062444, 49982176, 1696247, 9661456 ####[address] [place] [address] Lymphocytes/100 WBC (Bld) 38.5 % Normal 14.0-50.0 [facility] Comment on above: Order Comment: Order Added by Discern Expert. Performed By: #### 1 6730233, 5127099, 09967465, 4676325, 5447178, 55009689, 7893582, 1400486 ####[address] [place] [address] Lymphocytes/Leukocytes Auto (Bld) [Pure # fraction] 2.3 E9/L Normal 1.0-4.0 [facility] Comment on above: Order Comment: Order Added by Discern Expert. Performed By: #### 1 5050538, 7631523, 64176459, 0902633, 4785338, 68763100, 1578703, 1688851 ####[facility] [address] [place] [address] Monocytes/100 WBC (Bld) 7.2 % Normal 4.0-14.0 [facility] Comment on above: Order Comment: Order Added by Discern Expert. Performed By: #### 1 2808744, 2235159, 43107528, 7933611, 3654733, 16319127, 3058836, 9251383 ####[facility] [address] [place] [address] Monocytes/Leukocytes Auto (Bld) [Pure # fraction] 0.4 E9/L Normal 0.2-1.0 [facility] Comment on above: Order Comment: Order Added by Pearl Expert. Performed By: #### 1 5475880, 8865095, 30825577, 0878656, 4196182, 96948447, 8825671, 2403831 ####[facility] [address] [place] [address] Neutrophils/100 WBC (Bld) 46.2 % Normal 36.0-75.0 [facility] Comment on above: Order Comment: Order Added by Pearl Expert. Performed By: #### 1 2544031, 2613497, 87401937, 0918879, 8860196, 84544140, 9233660, 9867281 ####[facility] [address] [place] [address] Neutrophils/Leukocytes Auto (Bld) [Pure # fraction] 2.7 E9/L Normal 2.0-7.5 [facility] Comment on above: Order Comment: Order Added by Pearl Expert. Performed By: #### 1 0162772, 4502670, 33567826, 6894227, 6008347, 06094241, 5992279, 1774842 ####[facility] [address] [place] [address] BMPon 02-13-2023 Creatinine [Mass/Vol] 1.2 mg/dL Normal 0.5-1.3 [facility] Comment on above: Performed By: #### 1 7739329, 9109138, 43215140, 2962742, 7610838, 40723059, 5998669, 2217111 ####[facility] [address] [place] [address] Urea nitrogen [Mass/Vol] 41 mg/dL High 5-21 [facility] Comment on above: Performed By: #### 1 4406585, 0457041, 97977713, 0585871, 7760245, 15290141, 3859828, 9091923 ####[facility] [address] [place] [address] Urea nitrogen/Creatinine [Mass ratio] 34 No Units High 10-20 [facility] Comment on above: Performed By: #### 1 9906396, 8129437, 64098691, 8742043, 4492807, 04691899, 3693441, 4127188 ####[facility] [address] [place] [address] Anion gap [Moles/Vol] 12 mmol/L Normal 6-16 [facility] Comment on above: Performed By: #### 1 9569648, 9608491, 42818911, 1991625, 8658633, 06996449, 6021367, 3700667 ####[facility] [address] [place] [address] Calcium [Mass/Vol] 9.1 mg/dL Normal 8.9-11.1 [facility] Comment on above: Performed By: #### 1 8970218, 3889571, 99352073, 7069304, 0553599, 59939908, 7507308, 2487418 ####[facility] [address] [place] [address] Chloride [Moles/Vol] 102 mmol/L Normal 101-111 [facility] Comment on above: Performed By: #### 1 7584132, 4916402, 91409184, 8798378, 2957724, 62938175, 3776461, 8180427 ####[facility] [address] [place] [address] CO2 [Moles/Vol] 26 mmol/L Normal 21-31 [facility] Comment on above: Performed By: #### 1 3058038, 7578969, 37840963, 7397201, 6392150, 14798626, 3247370, 2368293 ####[facility] [address] [place] [address] Glucose [Mass/Vol] 128 mg/dL Normal 55-199 [facility] Comment on above: Result Comment: If t his glucose result represents a fasting glucose, interpretation should refer to the following reference range: 55-99 mg/dL Performed By: #### 1 2153909, 5908584, 07226034, 2770937, 2826549, 17950734, 1441494, 3067199 ####[facility] [address] [place] [address] Potassium [Moles/Vol] 4.2 mmol/L Normal 3.5-5.3 [facility] Comment on above: Performed By: #### 1 5166564, 5218033, 11019036, 8672944, 8085565, 32397808, 3037777, 3821204 ####[facility] [address] [place] [address] Sodium [Moles/Vol] 136 mmol/L Normal 135-145 [facility] Comment on above: Performed By: #### 1 1337701, 2258641, 42224476, 1730615, 3466225, 53122098, 6832152, 0732552 ####[facility] [address] [place] [address] Blood Gas Art, with LytesChapin kj, [place] 02-13-2023 a/A Ratio Art 79.30 % Normal >=0.80 [facility] Comment on above: Performed By: #### 4 84111272 ####[facility] [address] [place] [address] AaDO2 Art 19.4 mmHg High 5.0-15.0 [facility] Comment on above: Performed By: #### 4 32974103 ####[facility] [address] [place] [address] Allens Test Positive Normal [facility] Comment on above: Performed By: #### 4 94558346 ####[facility] [address] [place] [address] Base Excess Arterial 1.7 mmol/L Low >=2.8 [facility] Comment on above: Performed By: #### 4 68884099 ####[address] [place] [address] cCa2+ Art 4.95 mg/dL Normal 4.40-5.30 [facility] Comment on above: Performed By: #### 4 51409120 ####[address] [place] [address] cCl- Art 102.0 mmol/L Normal 101.0-111.0 [facility] Comment on above: Performed By: #### 4 67763784 ####[facility] [address] [place] [address] cGlu Art 127 mg/dL High 55-99 [facility] Comment on above: Performed By: #### 4 05784933 ####[address] [place] [address] cK+ Art 3.9 mmol/L Normal 3.5-5.3 [facility] Comment on above: Performed By: #### 4 53624543 ####[facility] [address] [place] [address] cLac Art .4 mmol/L Low .5-2.2 [facility] Comment on above: Performed By: #### 4 66799801 ####[facility] [address] [place] [address] aitchbone breaker+ Art 140.0 mmol/L Normal 135.0-145.0 [facility] Comment on above: Performed By: #### 4 07815228 ####[facility] [address] [place] [address] Drawn by tmj Invalid Interpretation Code [facility] Comment on above: Performed By: #### 4 63681263 ####[facility] [address] [place] [address] FCOHb Art 2.0 % Normal 1.5-4.9 [facility] Comment on above: Result Comment: Refe rence rangeNonsmoker <1.5%Smoker <5.0%Heavy Smoker <9.0% Performed By: #### 4 42933098 ####[facility] [address] [place] [address] FIO2 BG 21 Invalid Interpretation Code [facility] Comment on above: Performed By: #### 4 29799876 ####[facility] [address] [place] [address] FMetHb Art 0.9 % Normal 0.0-1.9 [facility] Comment on above: Performed By: #### 4 50853017 ####[facility] [address] [place] [address] FO2Hb Art 92.2 % Low 93.0-100.0 [facility] Comment on above: Performed By: #### 4 92904934 ####[facility] [address] [place] [address] HCO3 (Bld) [Moles/Vol] 25.8 mmol/L Normal 22.0-26.0 [facility] Comment on above: Performed By: #### 4 57890758 ####[facility] [address] [place] [address] Hemoglobin (Bld) [Mass/Vol] 10.7 g/dL Low 12.0-17.0 [facility] Comment on above: Performed By: #### 4 08821902 ####[facility] [address] [place] [address] Oxygen saturation in Blood 95.0 % Normal 95.0-100.0 [facility] Comment on above: Performed By: #### 4 91380456 ####[facility] [address] [place] [address] P CO2 Arterial 45.9 mmHg High 35.0-45.0 [facility] Comment on above: Performed By: #### 4 37115742 ####[address] [place] [address] P O2 Arterial 74.6 mmHg Low 80.0-100.0 [facility] Comment on above: Performed By: #### 4 39056564 ####[address] [place] [address] pH Arterial 7.381 Normal 7.350-7.450 [facility] Comment on above: Performed By: #### 4 98701707 ####[address] [address] Sample Site R Radial Normal [facility] Comment on above: Performed By: #### 4 99882992 ####[address] [address] Sample Type Arterial Draw Normal [facility] Comment on above: Performed By: #### 4 87535885 ####[address] [place] [address] CBC w/ Auto Diffon 3 Erythrocyte distribution width (RBC) [Ratio] 14.4 % High 10.9-14.2 [facility] Comment on above: Performed By: #### 1 0286898, 6695927, 04741252, 1581410, 9542809, 88547481, 7985629, 7458991 ####[facility] [address] [place] [address] Hematocrit (Bld) [Volume fraction] 35.4 % Low 37.7-49.0 [facility] Comment on above: Performed By: #### 1 3067261, 2760504, 67702503, 0885139, 9280247, 25025829, 4460687, 7918248 ####[facility] [address] [place] [address] Hemoglobin (Bld) [Mass/Vol] 11.6 g/dL Low 13.5-17.5 [facility] Comment on above: Performed By: #### 1 1911107, 9746404, 78135902, 9459496, 4293600, 83430790, 8309979, 9048608 ####[facility] [address] [place] [address] MCH (RBC) [Entitic mass] 28.3 pg Normal 27.0-34.0 [facility] Comment on above: Performed By: #### 1 3176411, 4529307, 53488950, 0398115, 1710771, 51328576, 8800315, 4578525 ####[facility] [address] [place] [address] MCHC (RBC) [Mass/Vol] 32.9 g/dL Normal 31.4-36.0 [facility] Comment on above: Performed By: #### 1 9657012, 6078261, 35927562, 1498551, 6323123, 03653680, 3919225, 3720917 ####[facility] [address] [place] [address] MCV (RBC) [Entitic vol] 85.9 fL Normal 80.0-100.0 [facility] Comment on above: Performed By: #### 1 5303582, 3132540, 16901015, 7798081, 1817212, 81552472, 4950555, 9371523 ####[facility] [address] [place] [address] Platelet mean volume (Bld) [Entitic vol] 9.5 fL Normal 6.4-10.8 [facility] Comment on above: Performed By: #### 1 2041444, 2386844, 35723024, 4237043, 4473865, 68079049, 5832134, 9734083 ####[facility] [address] [place] [address] Platelets (Bld) [#/Vol] 195.0 E9/L Normal 150.0-500.0 [facility] Comment on above: Performed By: #### 1 0259919, 8296954, 86912013, 7136298, 4647233, 39165319, 3600560, 1246214 ####[facility] [address] [place] [address] RBC (Bld) [#/Vol] 4.1 E12/L Low 4.3-5.9 [facility] Comment on above: Performed By: #### 1 1141333, 6734362, 99123842, 0978775, 9158915, 00896182, 2411675, 6657391 ####[facility] [address] [place] [address] WBC corrected for nucl RBC Auto (Bld) [#/Vol] 5.9 E9/L Normal 4.0-11.0 [facility] Comment on above: Performed By: #### 1 0102346, 3574331, 75077242, 4910410, 0458870, 84739450, 9718115, 5950967 ####[facility] [address] [place] [address] CHEMISTRYOrdered By: Lab ROP User on 02-13-2023 Glucose [Mass/Vol] 100 mg/dL High 55 - 99 mg/dL [facility] POC Subsection Comment on above: Result Comment: Clemente christopher RN/ POC Device SN [id number] Invalid Interpretation Code [facility] POC Subsection POC User ID [id number] Invalid Interpretation Code [facility] POC Subsection POC Username PALAK PEREIRA Invalid Interpretation Code [facility] POC Subsection Glucose [Mass/Vol] 124 mg/dL High 55 - 99 mg/dL [facility] POC Subsection POC Device SN [id number] Invalid Interpretation Code [facility] POC Subsection POC User ID [id number] Invalid Interpretation Code [facility] POC Subsection POC Username CHRIS BARRERA Invalid Interpretation Code [facility] POC Subsection CHEMISTRYOrdered By: SYSTEM SYSTEM on 02-13-2023 Troponin I.cardiac [Mass/Vol] 6.60 pg/mL Low 15.90 - 38.40 pg/mL [facility] [...] 65 mL/min/1.73 m2 Normal >=59mL/min/1 .73 m2 FT Chem S Globulin (S) [Mass/Vol] 3.0 g/dL Normal 1.4 - 4.0 gm/dL [facility] Remisol Glucose [Mass/Vol] 128 mg/dL Normal 55 - 199 mg/dL [facility] Remisol Potassium [Moles/Vol] 4.2 mmol/L Normal 3.5 - 5.3 mmol/L [facility] Remisol Protein [Mass/Vol] 6.7 g/dL Normal 6.0 - 7.8 gm/dL [facility] Remisol Sodium [Moles/Vol] 136 mmol/L Normal 135 - 145 mmol/L [facility] Remisol Troponin I.cardiac [Mass/Vol] 5.80 pg/mL Low 15.90 - 38.40 pg/mL [facility] Remisol Urea nitrogen [Mass/Vol] 41 mg/dL High 5 - 21 mg/dL [facility] Remisol Urea nitrogen/Creatinine [Mass ratio] 34 mg/mg High 10 - 20 [facility] Remisol Ethanol [Mass/Vol] mg/dL Normal <=7mg/dL [facility] emisol COAGULATIONOrdered By: Gilmer Coronado on 02-13-2023 aPTT Coag (PPP) [Time] 31.8 s Normal 25.1 - 36.5 second(s) [facility] Auto Coag INR Coag (PPP) [Relative time] 1.1 {INR} Invalid Interpretation Code [facility] Auto Coag PT Coag (PPP) [Time] 11.9 s Normal 9.4 - 1 2.5 second(s) [facility] Auto Coag CT Head or Brain w/o Contras ton 02-13-2023 CT Head or Brain w/o Contrast Normal [facility] Capillary Glucose POCon 02-02 Glucose [Mass/Vol] 100 mg/dL High 55-99 [facility] Comment on above: Result Comment: Clemente christopher RN/ Performed By: #### 2 [id number] ####[facility] [address] [place] [address] Glucose [Mass/Vol] 124 mg/dL High 55-99 [facility] Comment on above: Performed By: #### 2 [id number] ####[facility] [address] [place] [address] Consent for Treatmenton 02-02 Consent for Treatment [id number]#1. 00CD:127 Normal [facility] Consultation Noteon 02-14-20 Consultation Note Normal [facility] Comment on above: Result Comment: Elec tronically Signed By: Torey LEMONS, Mahesh Johns\.br\Date and Time Signed: 02/13/23 11:13 EDT DNR - Do Not Resuscitateon 0 02-13-2023 DNR - Do Not Resuscitate [id number]#1.0 0CD:127 Normal [facility] ED Clinical Summaryon 2022 ED Clinical Summary Normal [facility] ED Note-Physicianon 02-14-20 ED Note-Physician Normal [facility] Comment on above: Result Comment: Elec tronically Signed By: Shashi LEMONS, Jalen\.br\Date and Time Signed: 02/13/23 06:18 EDT ED Patient Education Noteon 02-13-2023 ED Patient Education Note Normal [facility] ED Patient Summaryon 023 ED Patient Summary Normal [facility] Ethanolon 02-13-2023 Ethanol [Mass/Vol] mg/dL Normal <=7 [facility] Comment on above: Performed By: #### 2 700001 ####[facility] [address] [place] [address] FT Blood GasesOrdered By: Rex Ravi on 02-13-2023 a/A Ratio Art 79.30 % Normal >=0.80% [facility] Resp Auto SS AaDO2 Art 19.4 mm[Hg] High 5.0 - 15.0 mmHg [facility] Resp Auto SS Allens Test Positive (02/13/23 1:02 AM) Normal [facility] Resp Auto SS Base Excess Arterial 1.7 mmol/L Low >=2.8mmol/L FTM C Resp Auto SS cCa2+ Art 4.95 mg/dL Normal 4.40 - 5.30 mg/dL [facility] Resp Auto SS cCl- Art 102.0 mmol/L Normal 101.0 - 111.0 mmol/L [facility] Resp Auto SS cGlu Art 127 mg/dL High 55 - 99 mg/dL [facility] Resp Auto SS cK+ Art 3.9 mmol/L Normal 3.5 - 5.3 mmol/L [facility] Resp Auto SS cLac Art 0.4 mmol/L Low 0.5 - 2.2 mmol/L [facility] Resp Auto SS aitchbone breaker+ Art 140.0 mmol/L Normal 135.0 - 145.0 mmol/L [facility] Resp Auto SS Drawn by tmj Invalid Interpretation Code [facility] Resp Auto SS FCOHb Art 2.0 % Normal 1.5 - 4.9 % [facility] Resp Auto SS FIO2 BG 21 Invalid Interpretation Code [facility] Resp Auto SS FMetHb Art 0.9 % Normal 0.0 - 1.9 % [facility] Resp Auto SS FO2Hb Art 92.2 % Low 93.0 - 100.0 % [facility] Resp Auto SS HCO3 (Bld) [Moles/Vol] 25.8 mmol/L Normal 22.0 - 26.0 mmol/L [facility] Resp Auto SS Hemoglobin (Bld) [Mass/Vol] 10.7 g/dL Low 12.0 - 17.0 gm/dL [facility] Resp Auto SS P CO2 Arterial 45.9 mm[Hg] High 35.0 - 45.0 mmHg [facility] Resp Auto SS P O2 Arterial 74.6 mm[Hg] Low 80.0 - 100.0 mmHg [facility] Resp Auto SS pH Arterial 7.381 Normal 7.350 - 7.450 [facility] Resp Auto SS Sample Site R Radial (02/13/23 1:02 AM) Normal [facility] Resp Auto SS Sample Type Arterial Draw (02/13/23 1:02 AM) Normal [facility] Resp Auto SS HEMATOLOGYOrdered By: SYSTEM SYSTEM on 02-13-2023 Basophils/100 WBC (Bld) 0.9 % Normal 0.0 - 2.0 % [facility] HemeAutoSS Basophils/Leukocytes Auto (Bld) [Pure # fraction] 0.1 E9/L Normal 0.0 - 0.2 E9/L [facility] HemeAutoSS Eosinophils/100 WBC (Bld) 7.2 % Normal 0.0 - 8.0 % [facility] [...] 85.9 fL Normal 80.0 - 100.0 fL [facility] HemeAutoSS Platelet mean volume (Bld) [Entitic vol] 9.5 fL Normal 6.4 - 10.8 fL [facility] HemeAutoSS Platelets (Bld) [#/Vol] 195.0 E9/L Normal 150.0 - 500.0 E9/L [facility] HemeAutoSS RBC (Bld) [#/Vol] 4.1 E12/L Low 4.3 - 5.9 E12/L [facility] HemeAutoSS WBC corrected for nucl RBC Auto (Bld) [#/Vol] 5.9 E9/L Normal 4.0 - 11.0 E9/L [facility] HemeAutoSS Heart and Vascular Office/Cl inic Noteon 02-13-2023 Heart and Vascular Office/Clinic Note Normal [facility] Comment on above: Result Comment: Elec tronically Signed By: Bushra JIMENEZ CNP\.br\Date and Time Signed: 02/13/23 15:11 EDT Hep Func Panelon 02-13-2023 Albumin [Mass/Vol] 3.7 g/dL Normal 3.3-5.0 [facility] Comment on above: Performed By: #### 1 6962064, 9400791, 74263590, 6579775, 2339624, 39627866, 3786534, 7301369 ####[facility] [address] [place] [address] Albumin/Globulin (S) [Mass conc ratio] 1.2 Normal 1.1-2.2 [facility] Comment on above: Performed By: #### 1 9249241, 8580433, 70313843, 6406820, 4280883, 60731867, 6174617, 9260133 ####[facility] [address] [place] [address] ALP [Catalytic activity/Vol] 63 Int._Unit/L Normal 21-98 [facility] Comment on above: Performed By: #### 1 7946729, 6873757, 00595264, 4621628, 9927578, 77956545, 4447350, 8694885 ####[facility] [address] [place] [address] ALT No additional P-5'-P [Catalytic activity/Vol] 10 Int._Unit/L Normal 6-46 [facility] Comment on above: Performed By: #### 1 6887589, 9948216, 23100971, 0772845, 0032367, 19178100, 8050050, 3370728 ####[facility] [address] [place] [address] AST [Catalytic activity/Vol] 13 Int._Unit/L Normal 5-43 [facility] Comment on above: Performed By: #### 1 2953992, 9351380, 51952332, 1789899, 1682650, 95533984, 3879953, 2368299 ####[facility] [address] [place] [address] Bilirubin [Mass/Vol] 0.6 mg/dL Normal 0.0-1.1 [facility] Comment on above: Performed By: #### 1 4129390, 0414579, 72476655, 6490620, 1031310, 12457990, 6372283, 5094929 ####[facility] [address] [place] [address] Bilirubin.direct [Mass/Vol] 0.1 mg/dL Normal 0.1-0.4 [facility] Comment on above: Performed By: #### 1 1117307, 2020757, 58705798, 9979315, 7445048, 13159557, 7180423, 9247743 ####[facility] [facility] [address] [place] [address] Bilirubin.indirect [Mass or moles/Vol] 0.5 mg/dL Normal 0.1-0.9 [facility] Comment on above: Performed By: #### 1 [id number], 2904794, 39274074, 2314082, 4038750, 46000726, 0101133, 1376479 ####[facility] [address] [place] [address] Globulin (S) [Mass/Vol] 3.0 g/dL Normal 1.4-4.0 [facility] Comment on above: Performed By: #### 1 [id number], 3824457, 44386247, 6818482, 3415923, 72468955, 8290295, 9456348 ####[facility] [address] [place] [address] Protein [Mass/Vol] 6.7 g/dL Normal 6.0-7.8 [facility] Comment on above: Performed By: #### 1 1594981, 5034566, 19786455, 3326797, 7130282, 51663633, 5408027, 7979987 ####[facility] [address] [place] [address] Inpatient Clinical Summaryon 02-13-2023 Inpatient Clinical Summary Normal [facility] Inpatient Patient Summaryon 02-13-2023 Inpatient Patient Summary Normal [facility] Interdisciplinary Note - Hortensia n 02-13-2023 Interdisciplinary Note - OT Normal [facility] Interdisciplinary Note - PTo n 02-13-2023 Interdisciplinary Note - PT Normal [facility] LEVETIRACETAM, SERUM OR PLAS MAon 02-13-2023 Levetiracetam, S 40.4 ug/mL Critically high 10.0-40.0 [facility] Comment on above: Performed By: #### K DAV ####[facility] [address] [place], [place] [address]Ix. Areli Yousif Monitor Recordon 02-13-2023 Monitor Record [id number]#1. 00CD:127 Normal [facility] Monitor Record [id number]#1. 00CD:127 Normal [facility] Monitor Record [id number]#1. 00CD:127 Normal [facility] Retirement Recordson 02-13 Retirement Records [id number]#1.0 0CD:127 Normal [facility] PT & PTTon 02-13-2023 aPTT Coag (PPP) [Time] 31.8 second(s) Normal 25.1-36.5 [facility] Comment on above: Result Comment: Para [...] the same coagulation reagent and instrumentation as [facility]. Currently there are no coagulation studies available worldwide for children to 14 days, and no normal ranges. Heparin therapeutic range (represented by Anti-Factor Xa activity of 0.2 - 0.4 U/mL) corresponds to PTT of 56.6 - 109.0 sec. Performed By: #### 1 2954092, 9191790, 63259595, 5525353, 9885894, 35498854, 2642834, 1812213 ####[facility] [address] [place] [address] INR Coag (PPP) [Relative time] 1.1 {INR} Invalid Interpretation Code [facility] Comment on above: Result Comment: INR results are specifically intended to assess patients stabilized on long-term Anticoagulation therapy suggested INR?s ?Less Intensive Anticoagulation? 2.0 ? 3.0Conventional Range 3.0 ? 4.5 Performed By: #### 1 2304957, 8976197, 77988303, 3559033, 3524284, 37494603, 8189302, 2031902 ####[facility] [address] [place] [address] PT Coag (PPP) [Time] 11.9 second(s) Normal 9.4-12.5 [facility] Comment on above: Result Comment: 15 [...] the same coagulation reagent and instrumentation as [facility]. Currently there are no coagulation studies available worldwide for children to 14 days, and no normal ranges. Performed By: #### 1 1900161, 3402227, 17544568, 9293632, 5295562, 37498640, 3053573, 5642766 ####[facility] [address] [place] [address] Patient Education - Texton 0 02-13-2023 Patient Education - Text Normal [facility] RAD - Preliminary Cat Scan R eporton 02-13-2023 RAD - Preliminary Cat Scan Report [id number]#1.0 0CD:127 Normal [facility] Reference Laboratory Testing Ordered By: Lexus DomainUser on 02-13-2023 Cortisol [Mass/Vol] 22.4 ug/dL High 6.2-19.4 mcg/ dL [facility] SendOutsSS Comment on above: Result Comment: Sandy denton Note: The reference interval and flagging for this test is for an AM collection. If this is a PM collection please use: Cortisol PM: 2.3-11.9 Performed at: [facility] [id number] [place], [place] [id number] PhD Desmond Jimenez Cortisol [Mass/Vol] 18.8 ug/dL Invalid Interpretation Code 6.2-19.4mcg/ dL [facility] [employer] Comment on above: Result Comment: Sandy denton Note: The reference interval and flagging for this test is for an AM collection. If this is a PM collection please use: Cortisol PM: 2.3-11.9 Performed at: [facility] [address] [place], [place] [id number] PhD Desmond Tony Troponin 0 Hr.on 02-13-2023 Troponin I.cardiac [Mass/Vol] 5.80 pg/mL Low 15.90-38.40 [facility] Comment on above: Result Comment: The 95% CI (Confidence Interval) PPV (Positive Predictive Value) for myocardial infarction in females is 38 pg/mL, in males 51 pg/mL. The results should be used in conjunction with clinical conditions of myocardial infarction.([employer] High Sensitivity Troponin I Instructions For Use, [employer], May 2018) Performed By: #### 1 9496123, 9798683, 76209951, 2483238, 4313594, 00988896, 5478120, 0467590 ####[facility] [address] [place] [address] Troponin 6 Hr.on 02-13-2023 Troponin I.cardiac [Mass/Vol] 6.60 pg/mL Low 15.90-38.40 [facility] Comment on above: Result Comment: The 95% CI (Confidence Interval) PPV (Positive Predictive Value) for myocardial infarction in females is 38 pg/mL, in males 51 pg/mL. The results should be used in conjunction with clinical conditions of myocardial infarction.([employer] High Sensitivity Troponin I Instructions For Use, [employer], May 2018) Performed By: #### 1 [id number] ####[address] [place] [address] U Drug Screenon 02-13-2023 Amphetamines Screen method >1000 ng/mL Ql (U) Negative Normal Negative [facility] Comment on above: Result Comment: Nega tive Cutoff: <1000 ng/mL Performed By: #### 2 333273 ####[facility] [address] [place] [address] Barbiturates Screen Ql (U) Negative Normal Negative [facility] Comment on above: Result Comment: Nega tive Cutoff: <200 ng/mL Performed By: #### 2 199854 ####[facility] [address] [place] [address] Benzodiazepines Ql (U) Negative Normal Negative [facility] Comment on above: Result Comment: Nega tive Cutoff: <200 ng/mL Performed By: #### 2 465933 ####[facility] [address] [place] [address] Cocaine Ql (U) Negative Normal Negative [facility] Comment on above: Result Comment: Nega tive Cutoff: <300 ng/mL Performed By: #### 2 155087 ####[facility] [address] [place] [address] Opiates Screen Ql (U) Negative Normal Negative [facility] Comment on above: Result Comment: Nega tive Cutoff: <300 ng/mL Performed By: #### 2 107296 ####[facility] [address] [place] [address] Phencyclidine Screen method >25 ng/mL Ql (U) Negative Normal Negative [facility] Comment on above: Result Comment: Nega tive Cutoff: <25 ng/mLThese drug screen results are to be used for medical (i.e., treatment) purposes only. Unconfirmed drug screening results must not be used for non-medical purposes (e.g., employment testing, legal testing). Performed By: #### 2 937650 ####[facility] [address] [place] [address] Tetrahydrocannabinol Screen method >50 ng/mL Ql (U) Negative Normal Negative [facility] Comment on above: Result Comment: Nega tive Cutoff: <50 ng/mL Performed By: #### 2 844261 ####[facility] [address] [place] [address] UA With Cult Reflexon 2022 Bacteria LM Ql (Urine sed) TRACE Normal Trace [facility] Comment on above: Performed By: #### 1 2830339 ####[facility] [address] [place] [address] Bilirubin Ql (U) Negative Normal Negative [facility] Comment on above: Performed By: #### 1 5064255 ####[facility] [address] [place] [address] Clarity (U) CLEAR Normal Clear [facility] Comment on above: Performed By: #### 1 1324037 ####[address] [address] Color (U) YELLOW Normal Yellow [facility] Comment on above: Performed By: #### 1 4142997 ####[address] [address] Epithelial cells.squamous LM.HPF (Urine sed) [#/Area] 0-2 Normal 0-2 [facility] Comment on above: Performed By: #### 1 2526979 ####[address] [address] Glucose Test strip (U) [Mass/Vol] Negative Normal Negative [facility] Comment on above: Performed By: #### 1 4818506 ####[address] [address] Hemoglobin Ql (U) Negative Normal Negative [facility] Comment on above: Performed By: #### 1 5426376 ####[address] [address] Ketones (U) [Mass/Vol] Negative Normal Negative [facility] Comment on above: Performed By: #### 1 0407013 ####[address] [address] [place]ug[place].plasma/[place] .RBC (Bld) [Mass ratio] 0-3 Normal 0-3 [facility] Comment on above: Performed By: #### 1 2964496 ####[address] [address] Nitrite Ql (U) Negative Normal Negative [facility] Comment on above: Performed By: #### 1 3424042 ####[address] [address] pH (U) 6.0 [pH] Invalid Interpretation Code 5.0-9.0 [facility] Comment on above: Performed By: #### 1 1962576 ####[facility] [address] [place] [address] Protein (U) [Mass/Vol] TRACE Abnormal Negative [facility] Comment on above: Performed By: #### 1 6664038 ####[facility] [address] [place] [address] Specific gravity (U) [Rel density] 1.010 Invalid Interpretation Code 1.005-1.030 [facility] Comment on above: Performed By: #### 1 7698309 ####[address] [address] Type of Urine collection method Catheter Normal [facility] Comment on above: Performed By: #### 1 8860075 ####[address] [address] Urobilinogen Qn (U) 0.2 {Alyssia'U}/dL Normal 0.0-1.0 [facility] Comment on above: Performed By: #### 1 6656512 ####[address] [address] WBC Auto Ql (U) Negative Normal Negative [facility] Comment on above: Performed By: #### 1 9195373 ####[address] [address] WBC LM.HPF (Urine sed) [#/Area] 0-5 Normal 0-5 [facility] Comment on above: Performed By: #### 1 4011020 ####[address] [address] URINALYSISOrdered By: Gilmer Coronado on 02-13-2023 Bacteria LM Ql (Urine sed) Trace /HPF Normal Trace/HPF [facility] UA Auto SS Bilirubin Ql (U) Negative (02/13/23 3:34 AM) Normal Negative [facility] UA Auto SS Clarity (U) Clear (02/13/23 3:34 AM) Normal Clear [facility] UA Auto SS Color (U) Yellow (02/13/23 3:34 AM) Normal Yellow [facility] UA Auto SS Epithelial cells.squamous LM.HPF (Urine sed) [#/Area] 0-2 /HPF Normal 0-2/HPF [facility] UA Aut o SS Glucose Test strip (U) [Mass/Vol] Negative (02/13/23 3:34 AM) Normal Negative [facility] UA Auto SS Hemoglobin Ql (U) Negative (02/13/23 3:34 AM) Normal Negative [facility] UA Auto SS Ketones (U) [Mass/Vol] Negative (02/13/23 3:34 AM) Normal Negative [facility] UA Auto SS [place].plasma/[place] .RBC (Bld) [Mass ratio] 0-3 /HPF Normal 0-3/HPF [facility] UA Auto SS Nitrite Ql (U) Negative (02/13/23 3:34 AM) Normal Negative [facility] UA Auto SS pH (U) 6.0 *NA* (02/13/23 3:34 AM) Invalid Interpretation Code 5.0 - 9.0 [facility] UA Auto SS Protein (U) [Mass/Vol] Trace *ABN* (02/13/23 3:34 AM) Invalid Interpretation Code Negative [facility] UA Auto SS Specific gravity (U) [Rel density] 1.010 *NA* (02/13/23 3:34 AM) Invalid Interpretation Code 1.005 - 1.030 [facility] UA Auto SS UA Spec Desc Catheter (02/13/23 3:34 AM) Normal [facility] UA Auto SS Urobilinogen Qn (U) 0.6014599 {Alyssia'U}/dL Normal 0.0 - 1.0 EU/dL [facility] UA Auto SS WBC Auto Ql (U) Negative (02/13/23 3:34 AM) Normal Negative [facility] UA Auto SS WBC LM.HPF (Urine sed) [#/Area] 0-5 /HPF Normal 0-5/HPF [facility] UA Auto SS XR Chest Single Viewon 02-13 XR Chest Single View Normal [facility] eGFRon 02-13-2023 GFR/1.73 sq M.predicted among non-blacks MDRD (S/P/Bld) [Vol rate/Area] 65 mL/min/1.73 m2 Normal >=59 [facility] Comment on above: Order Comment: Order added by Discern Expert. Result Comment: Publishing Director lokesh kidney disease could be indicated at eGFR's of less than 60 mL/min/1.73m2. Kidney failure is indicated at less than 15 mL/min/1.73m2. Performed By: #### 1 [id number], 6488489, 25243232, 1634565, 5552922, 03519173, 6512310, 1006004 ####[facility] [address] [place] [address] CBC AUTO DIFFon 02-11-2023 BASO # 0.0 103/ul Normal 0.0-0.1 [facility] Comment on above: Performed By: #### C BC ####[facility] [address] [place] [address]Dr. Tabbytulio Yousif Basophils/100 WBC (Bld) 0.7 % Normal 0.2-2.0 [facility] Comment on above: Performed By: #### C BC ####[facility] [address] [place], [place] [address]Dr. Areli Yousif EO # 0.6 103/ul Normal 0.0-0.7 [facility] Comment on above: Performed By: #### C BC ####[facility] [address] [place] [address]Dr. Areli Yousif Eosinophils/100 WBC (Bld) 9.1 % Critically high 0.9-7.0 [facility] Comment on above: Performed By: #### C BC ####[facility] [address] [place] [address]Dr. Areli Yousif Erythrocyte distribution width (RBC) [Ratio] 13.2 % Normal 11.0-15.0 [facility] Comment on above: Performed By: #### C BC ####[facility] [address] [place], [place] [address]Dr. Areli Yousif Hematocrit (Bld) [Volume fraction] 35.7 % Critically low 42.0-54.0 [facility] Comment on above: Performed By: #### C BC ####[facility] [address] [place], [place] [address]Dr. Areli Yousif Hemoglobin (Bld) [Mass/Vol] 11.4 g/dL Critically low 14.0-18.0 [facility] Comment on above: Performed By: #### C BC ####[facility] [address] [place] [address]Dr. Areli Yousif IG # 0.02 10e3/ul Normal 0.00-0.03 [facility] Comment on above: Performed By: #### C BC ####[facility] [address] [place] [address]Dr. Areli Yousif IG % 0.3 % Normal 0.0-0.5 [facility] Comment on above: Performed By: #### C BC ####[facility] [address] [place] [address]Dr. Areli Yousif LYMPH # 2.0 103/ul Normal 1.2-3.8 [facility] Comment on above: Performed By: #### C BC ####[facility] [address] [place] [address]Dr. Areli Yousif Lymphocytes/100 WBC (Bld) 33.8 % Normal 20.5-60.0 [facility] Comment on above: Performed By: #### C BC ####[facility] [address] [place] [address]Dr. Areli Yousif MANUAL DIFF REQ NO Normal [facility] Comment on above: Performed By: #### C BC ####[facility] [address] [place] [address]Dr. Areli Yousif MCH (RBC) [Entitic mass] 28.5 pg Normal 25.9-34.0 [facility] Comment on above: Performed By: #### C BC ####[facility] [address] [place], [place] [address]Dr. Areli Yousif MCHC (RBC) [Mass/Vol] 31.9 g/dL Normal 29.9-35.2 [facility] Comment on above: Performed By: #### C BC ####[facility] [address] [place] [address]Dr. Areli Yousif MCV (RBC) [Entitic vol] 89.3 fL Normal 80.0-94.0 [facility] Comment on above: Performed By: #### C BC ####[facility] [address] [place] [address]Dr. Areli Yousif MONO # 0.4 103/ul Normal 0.3-0.8 [facility] Comment on above: Performed By: #### C BC ####[facility] [address] [place] [address]Dr. Areli Yousif Monocytes/100 WBC (Bld) 6.6 % Normal 1.7-12.0 [facility] Comment on above: Performed By: #### C BC ####[facility] [address] [place] [address]Dr. Areli Yousif NEUT # 3.0 103/ul Normal 1.4-6.5 [facility] Comment on above: Performed By: #### C BC ####[facility] [address] [place] [address]Dr. Areli Yousif Neutrophils/100 WBC (Bld) 49.5 % Normal 43.0-75.0 [facility] Comment on above: Performed By: #### C BC ####[facility] [address] [place] [address]Dr. Areli Yousif Platelet mean volume (Bld) [Entitic vol] 11.2 fL Normal 9.5-13.5 [facility] Comment on above: Performed By: #### C BC ####[facility] [address] [place] [address]Dr. Areli Yousif PLT 244 103/ul Normal 150-450 [facility] Comment on above: Performed By: #### C BC ####[facility] [address] [place] [address]Dr. Areli Yousif RBC 4.00 106/ul Critically low 4.70-6.10 [facility] Comment on above: Performed By: #### C BC ####[facility] [address] [place] [address]Dr. Areli Yousif WBC 6.0 103/ul Normal 4.0-11.0 [facility] Comment on above: Performed By: #### C BC ####[facility] [address] [place] [address]Dr. Areli Yousif Consent for Treatmenton 02-02 Consent for Treatment [id number]#1.0 0CD:127 Normal [facility] Outside Cardiovascularon Outside Cardiovascular [id number]#1.0 0CD:127 Normal [facility] Outside Cardiovascular [id number]#1.0 0CD:127 Normal [facility] PROF 14(COMP METB)on 023 Albumin [Mass/Vol] 3.2 g/dL Critically low 3.4-5.[address] [facility] Comment on above: Performed By: #### C MP ####[facility] [address] [place] [address]Dr. Areli Yousif Albumin/Globulin [Mass ratio] 0.9 {ratio} Normal [facility] Comment on above: Performed By: #### C MP ####[facility] [address] [place] [address]Dr. Areli Yousif ALP [Catalytic activity/Vol] 77 U/L Normal 46-116 [facility] Comment on above: Performed By: #### C MP ####[facility] [address] [place] [address]Dr. Areli Yousif ALT [Catalytic activity/Vol] 14 U/L Critically low 16-63 [facility] Comment on above: Performed By: #### C MP ####[facility] [address] [place] [address]Dr. Areli Yousif Anion gap [Moles/Vol] 12.1 mmol/L Normal [facility] Comment on above: Performed By: #### C MP ####[facility] [address] [place] [address]Dr. Areli Yousif AST [Catalytic activity/Vol] 8 U/L Critically low 15-37 [facility] Comment on above: Performed By: #### C MP ####[facility] [address] [place] [address]Dr. Areli Yousif Bilirubin [Mass/Vol] 0.3 mg/dL Normal 0.2-1.0 [facility] Comment on above: Performed By: #### C MP ####[facility] [address] [place] [address]Dr. Areli Yousif Calcium [Mass/Vol] 9.1 mg/dL Normal 8.5-10.1 [facility] Comment on above: Performed By: #### C MP ####[facility] [address] [place] [address]Dr. Areli Yousif Chloride [Moles/Vol] 106 mmol/L Normal 98-107 [facility] Comment on above: Performed By: #### C MP ####[facility] [address] [place] [address]Dr. Areli Yousif CO2 [Moles/Vol] 28.9 mmol/L Normal 21.0-32.0 The [facility] Comment on above: Performed By: #### C MP ####[facility] [address] [place], [place] [address]Dr. Areli Yousif Creatinine [Mass/Vol] 1.20 mg/dL Normal 0.70-1.30 [facility] Comment on above: Performed By: #### C MP ####[facility] [address] [place] [address]Dr. Areli Yousif EGFR-AF [place] >60 Normal >=60 The [facility] Comment on above: Performed By: #### C MP ####[facility] [address] [place], [place] [address]Dr. Areli Yousif EGFR-NON AF [place] =60 Normal >=60 [facility] Comment on above: Performed By: #### C MP ####[facility] [address] [place], [place] [address]Dr. Areli Yousif Globulin (S) [Mass/Vol] 3.6 g/dL Normal [facility] Comment on above: Performed By: #### C MP ####[facility] [address] [place], [place] [address]Dr. Areli Yousif Glucose [Mass/Vol] 120 mg/dL Critically high 74-106 [facility] Comment on above: Performed By: #### C MP ####[facility] [address] [place] [address]Dr. Areli Yousif Potassium [Moles/Vol] 4.0 mmol/L Normal 3.5-5.1 [facility] Comment on above: Performed By: #### C MP ####[facility] [address] [place] [address]Dr. Areli Yousif Protein [Mass/Vol] 6.8 g/dL Normal 6.4-8.2 [facility] Comment on above: Performed By: #### C MP ####[facility] [address] [place] [address]Dr. Areli Yousif Sodium [Moles/Vol] 143 mmol/L Normal 136-145 [facility] Comment on above: Performed By: #### C MP ####[facility] [address] [place] [address]Dr. Areli Yousif Urea nitrogen [Mass/Vol] 33.0 mg/dL Critically high 7.0-18.0 [facility] Comment on above: Performed By: #### C MP ####[facility] [address] [place] [address]Dr. Areli Yousif Urea nitrogen/Creatinine [Mass ratio] 27.5 mg/mg Normal [facility] Comment on above: Performed By: #### C MP ####[facility] [address] [place] [address]Dr. Areli Benja Physician Orderon 02-11-2023 Physician Order [id number]#1. 00CD:127 Normal [facility] Progress Note-Physicianon Progress Note-Physician [id number]#1. 00CD:127 Normal [facility] Coding Summary.on 02-03-2023 Coding Summary. Normal [facility] Coding Queryon 02-01-2023 Coding Query Normal [facility] Consenton 01-29-2023 Consent [id number]#1. 00CD:127 Normal [facility] DNR - Do Not Resuscitateon 0 01-29-2023 DNR - Do Not Resuscitate [id number]#1. 00CD:127 Normal [facility] Discharge Instructionson Discharge Instructions [id number]#1. 00CD:127 Normal [facility] Transfer Documentson 023 Transfer Documents [id number]#1. 00CD:127 Normal [facility] EEGon 01-28-2023 EEG Normal [facility] Comment on above: Result Comment: Elec tronically Signed By: Lg LEMONS, Lilia\.br\Date and Time Signed: 01/28/23 09:38 EDT Cortisolon 01-27-2023 Cortisol [Mass/Vol] 9.4 microgram/dL Invalid Interpretation Code 6.2-19.4 [facility] Comment on above: Result Comment: Sandy denton Note: The reference interval and flagging forthis test is for an AM collection. If this is a PMcollection please use: Cortisol PM: 2.3-11.9[facility] also offers:039391: Cortisol- UK675653: Cortisol- PMPerformed at: [facility] [address] [id number] PhD Desmond Jimenez Performed By: #### 2 [id number] ####[facility] [address] [place] [address] CHEMISTRYOrdered By: Arpita ROP User on 01-26-2023 Glucose [Mass/Vol] 156 mg/dL High 55 - 99 mg/dL [facility] POC Subsection Comment on above: Result Comment: Alida renetta Meter POC Device SN [id number] Invalid Interpretation Code [facility] POC Subsection POC User ID [id number] Invalid Interpretation Code [facility] POC Subsection POC Username JOSE RAFAEL PAGE Invalid Interpretation Code [facility] POC Subsection Glucose [Mass/Vol] 140 mg/dL High 55 - 99 mg/dL [facility] POC Subsection Comment on above: Result Comment: Alida renetta Meter POC Device SN [id number] Invalid Interpretation Code [facility] POC Subsection POC User ID [id number] Invalid Interpretation Code [facility] POC Subsection POC Username JOSE RAFAEL PAGE Invalid Interpretation Code [facility] POC Subsection Capillary Glucose POCon 01-04 Glucose [Mass/Vol] 156 mg/dL High 55-99 [facility] Comment on above: Result Comment: Alida renetta Meter Performed By: #### 2 [id number] ####[facility] [address] [place] [address] Glucose [Mass/Vol] 140 mg/dL High 55-99 [facility] Comment on above: Result Comment: Alida renetta Meter Performed By: #### 2 [id number] ####[facility] [address] [place] [address] Discharge Note-Nursingon Discharge Note-Nursing Normal [facility] EEGon 01-26-2023 EEG Normal [facility] Comment on above: Result Comment: Elec tronically Signed By: Lilia Castanon MD\.br\Date and Time Signed: 01/26/23 11:16 EDT EEG Normal [facility] Comment on above: Result Comment: Elec tronically Signed By: Lilia Castanon MD\.br\Date and Time Signed: 01/26/23 11:15 EDT Inpatient Clinical Summaryon 01-26-2023 Inpatient Clinical Summary Normal [facility] Inpatient Patient Summaryon 01-26-2023 Inpatient Patient Summary Normal [facility] Interdisciplinary Note - Hermelindo e Manageron 01-26-2023 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 00CD:127 Normal [facility] Monitor Record [id number]#1. 00CD:127 Normal [facility] Monitor Record [id number]#1. 00CD:127 Normal [facility] Progress Note-Physicianon Progress Note-Physician Normal [facility] Comment on above: Result Comment: Elec tronically Signed By: Rajni Chávez RN\.br\Date and Time Signed: 01/26/23 07:26 EDT\.br\Electronically Co-Signed By: Lilia Castanon MD\.br\Date and Time Co-Signed: 01/26/23 11:59 EDT CHEMISTRYOrdered By: Lab ROP User on 01-25-2023 Glucose [Mass/Vol] 208 mg/dL High 55 - 99 mg/dL [facility] POC Subsection Comment on above: Result Comment: Clemente MCCLAIN POC Device SN [id number] Invalid Interpretation Code [facility] POC Subsection POC User ID [id number] Invalid Interpretation Code [facility] POC Subsection POC Username RICKY SHIN Invalid Interpretation Code [facility] POC Subsection Capillary Glucose POCon 01-04 Glucose [Mass/Vol] 208 mg/dL High 55-99 [facility] Comment on above: Result Comment: Clemente MCCLAIN Performed By: #### 2 [id number] ####[facility] [address] [place] [address] Glucose [Mass/Vol] 152 mg/dL High 55-99 [facility] Comment on above: Result Comment: Clemente MCCLAIN Performed By: #### 2 [id number] ####[facility] [address] [place] [address] Glucose [Mass/Vol] 214 mg/dL High 55-99 [facility] Comment on above: Result Comment: Clemente MCCLAIN Performed By: #### 2 [id number] ####[facility] [address] [place] [address] Glucose [Mass/Vol] 151 mg/dL High 55-99 [facility] Comment on above: Result Comment: Clemente MCCLAIN Performed By: #### 2 [id number] ####[facility] [address] [place] [address] Monitor Recordon 01-25-2023 Monitor Record [id number]#1. 00CD:127 Normal [facility] Monitor Record [id number]#1. 00CD:127 Normal [facility] Monitor Record [id number]#1. 00CD:127 Normal [facility] Monitor Record [id number]#1. 00CD:127 Normal [facility] Monitor Record [id number]#1. 00CD:127 Normal [facility] Progress Note-Physicianon Progress Note-Physician [facility] Comment on above: Result Comment: Elec tronically Signed By: John Lyn MD\.br\Date and Time Signed: 01/25/23 10:38 EDT Progress Note-Physician [facility] Comment on above: Result Comment: Elec tronically Signed By: Tobin GONZALEZ, Fallon\.br\Date and Time Signed: 01/25/23 07:45 EDT\.br\Electronically Co-Signed By: Lilia Castanon MD\.br\Date and Time Co-Signed: 01/25/23 10:01 EDT Auto Diffon 01-24-2023 Basophils/100 WBC (Bld) 0.9 % Normal 0.0-2.0 [facility] Comment on above: Order Comment: Order Added by Discern Expert. Performed By: #### 2 114084, 5660594, 5301131, 3216781, 56944939, 5552303 ####[facility] [address] [place] [address] Basophils/Leukocytes Auto (Bld) [Pure # fraction] 0.1 E9/L Normal 0.0-0.2 [facility] Comment on above: Order Comment: Order Added by Discern Expert. Performed By: #### 2 605400, 2696133, 1299243, 5726857, 81692001, 5691043 ####[address] [place] [address] Eosinophils/100 WBC (Bld) 8.7 % High 0.0-8.0 [facility] Comment on above: Order Comment: Order Added by Discern Expert. Performed By: #### 2 734690, 8609108, 6502660, 8461313, 15147500, 2257237 ####[address] [address] Eosinophils/Leukocytes Auto (Bld) [Pure # fraction] 0.6 E9/L High 0.0-0.5 [facility] Comment on above: Order Comment: Order Added by Discern Expert. Performed By: #### 2 062736, 0993525, 4964470, 7151719, 25263071, 3246183 ####[address] [address] Lymphocytes/100 WBC (Bld) 38.0 % Normal 14.0-50.0 [facility] Comment on above: Order Comment: Order Added by Discern Expert. Performed By: #### 2 422393, 8488033, 9553610, 6106293, 72783794, 4746239 ####[address] [address] Lymphocytes/Leukocytes Auto (Bld) [Pure # fraction] 2.7 E9/L Normal 1.0-4.0 [facility] Comment on above: Order Comment: Order Added by Discern Expert. Performed By: #### 2 963179, 8720143, 2616758, 4068962, 92771081, 4626217 ####[facility] [address] [place] [address] Monocytes/100 WBC (Bld) 8.2 % Normal 4.0-14.0 [facility] Comment on above: Order Comment: Order Added by Pearl Expert. Performed By: #### 2 696734, 0629584, 9703364, 1118094, 55922724, 8867912 ####[facility] [address] [place] [address] Monocytes/Leukocytes Auto (Bld) [Pure # fraction] 0.6 E9/L Normal 0.2-1.0 [facility] Comment on above: Order Comment: Order Added by Pearl Expert. Performed By: #### 2 463270, 6633958, 3548833, 4605468, 70036452, 7880953 ####[address] [place] [address] Neutrophils/100 WBC (Bld) 44.2 % Normal 36.0-75.0 [facility] Comment on above: Order Comment: Order Added by Pearl Expert. Performed By: #### 2 127668, 0871632, 1143410, 9093892, 38606309, 5134546 ####[facility] [address] [place] [address] Neutrophils/Leukocytes Auto (Bld) [Pure # fraction] 3.1 E9/L Normal 2.0-7.5 [facility] Comment on above: Order Comment: Order Added by Pearl Expert. Performed By: #### 2 318917, 1874505, 0224389, 8019108, 89883199, 7782180 ####[facility] [address] [place] [address] BMPon 01-24-2023 Anion gap [Moles/Vol] 10 mmol/L Normal 6-16 [facility] Comment on above: Performed By: #### 2 284725, 8987500, 8123196, 6470857, 41675098, 7472817 ####[facility] [address] [place] [address] Calcium [Mass/Vol] 8.7 mg/dL Low 8.9-11.1 [facility] Comment on above: Performed By: #### 2 079125, 7331102, 2822534, 3477383, 95660513, 2140719 ####[facility] [address] [place] [address] Chloride [Moles/Vol] 106 mmol/L Normal 101-111 [facility] Comment on above: Performed By: #### 2 449325, 4829935, 9027952, 2469443, 70323068, 1244188 ####[facility] [address] [place] [address] CO2 [Moles/Vol] 28 mmol/L Normal 21-31 [facility] Comment on above: Performed By: #### 2 092881, 8388937, 3128623, 9001404, 30439898, 5607079 ####[facility] [address] [place] [address] Creatinine [Mass/Vol] 1.0 mg/dL Normal 0.5-1.3 [facility] Comment on above: Performed By: #### 2 168290, 6423235, 6825389, 6734474, 52274725, 8036812 ####[facility] [address] [place] [address] Glucose [Mass/Vol] 163 mg/dL Normal 55-199 [facility] Comment on above: Result Comment: If t his glucose result represents a fasting glucose, interpretation should refer to the following reference range: 55-99 mg/dL Performed By: #### 2 326877, 9618103, 8479873, 9312096, 90167670, 8766365 ####[facility] [address] [place] [address] Potassium [Moles/Vol] 3.9 mmol/L Normal 3.5-5.3 [facility] Comment on above: Performed By: #### 2 492177, 6687455, 2142605, 4409974, 49513292, 4310009 ####[facility] [address] [place] [address] Sodium [Moles/Vol] 140 mmol/L Normal 135-145 [facility] Comment on above: Performed By: #### 2 648183, 0163321, 3709004, 0111559, 77415575, 1761837 ####[facility] [address] [place] [address] Urea nitrogen [Mass/Vol] 24 mg/dL High 5-21 [facility] Comment on above: Performed By: #### 2 872855, 1984005, 1289830, 7171146, 72959332, 3957383 ####[facility] [address] [place] [address] Urea nitrogen/Creatinine [Mass ratio] 24 No Units High 10-20 [facility] Comment on above: Performed By: #### 2 753263, 0708475, 5599915, 4147542, 35112077, 4656824 ####[facility] [address] [place] [address] CBC w/ Auto Diffon 3 Erythrocyte distribution width (RBC) [Ratio] 14.8 % High 10.9-14.2 [facility] Comment on above: Performed By: #### 2 950872, 9480099, 6175055, 7510175, 75676563, 1796189 ####[address] [place] [address] Hematocrit (Bld) [Volume fraction] 34.1 % Low 37.7-49.0 [facility] Comment on above: Performed By: #### 2 299496, 2776993, 7118562, 9597412, 13520187, 3998941 ####[facility] [address] [place] [address] Hemoglobin (Bld) [Mass/Vol] 11.2 g/dL Low 13.5-17.5 [facility] Comment on above: Performed By: #### 2 219068, 7075083, 4070954, 7991479, 93172345, 4492205 ####[address] [place] [address] MCH (RBC) [Entitic mass] 28.3 pg Normal 27.0-34.0 [facility] Comment on above: Performed By: #### 2 357994, 6355394, 5113740, 7767587, 17301173, 1258606 ####[address] MCHC (RBC) [Mass/Vol] 32.9 g/dL Normal 31.4-36.0 [facility] Comment on above: Performed By: #### 2 700938, 0686052, 5775977, 9476448, 60731641, 3652389 ####[address] [address] MCV (RBC) [Entitic vol] 86.0 fL Normal 80.0-100.0 [facility] Comment on above: Performed By: #### 2 450631, 6408922, 9792403, 1654019, 83596875, 7126114 ####[address] [address] Platelet mean volume (Bld) [Entitic vol] 8.8 fL Normal 6.4-10.8 [facility] Comment on above: Performed By: #### 2 571382, 4489198, 4733004, 3995708, 40159209, 4163044 ####[address] [address] Platelets (Bld) [#/Vol] 207.0 E9/L Normal 150.0-500.0 [facility] Comment on above: Performed By: #### 2 926997, 6941992, 6698354, 5810584, 96568039, 0926779 ####[address] [address] RBC (Bld) [#/Vol] 4.0 E12/L Low 4.3-5.9 [facility] Comment on above: Performed By: #### 2 212164, 6492916, 9690638, 6387206, 87692904, 1582527 ####[facility] [address] [place] [address] WBC corrected for nucl RBC Auto (Bld) [#/Vol] 7.0 E9/L Normal 4.0-11.0 [facility] Comment on above: Performed By: #### 2 380735, 6761585, 4698111, 3201922, 60756773, 3187084 ####[facility] [address] [place] [address] CHEMISTRYOrdered By: SYSTEM SYSTEM on 01-24-2023 Anion gap [Moles/Vol] 10 mmol/L Normal 6 - 16 mEq/L [facility] Calcium [Mass/Vol] 8.7 mg/dL Low 8.9 - 11. 1 mg/dL [facility] Chloride [Moles/Vol] 106 mmol/L Normal 101 - 1 11 mmol/L [facility] CO2 [Moles/Vol] 28 mmol/L Normal 21 - 31 mmol/L [facility] Creatinine [Mass/Vol] 1.0 mg/dL Normal 0.5 - 1.3 mg/dL [facility] GFR/1.73 sq M.predicted among blacks MDRD (S/P/Bld) [Vol rate/Area] mL/min/1.73 m2 Normal >=59mL/min/1 .73 m2 [facility] Chem S GFR/1.73 sq M.predicted among non-blacks MDRD (S/P/Bld) [Vol rate/Area] mL/min/1.73 m2 Normal >=59mL/min/1 .73 m2 [facility] Chem S Glucose [Mass/Vol] 163 mg/dL Normal 55 - 199 mg/dL [facility] Magnesium [Mass/Vol] 1.5 mg/dL Normal 1.3 - 2 .4 mg/dL [facility] Phosphate [Mass/Vol] 3.8 mg/dL Normal 1.9 - 4 .6 mg/dL [facility] Potassium [Moles/Vol] 3.9 mmol/L Normal 3.5 - 5.3 mmol/L [facility] Sodium [Moles/Vol] 140 mmol/L Normal 135 - 145 mmol/L [facility] Remisol Urea nitrogen [Mass/Vol] 24 mg/dL High 5 - 21 mg/dL [facility] Remisol Urea nitrogen/Creatinine [Mass ratio] 24 mg/mg High 10 - 20 [facility] Remisol Capillary Glucose POCon 01-04 Glucose [Mass/Vol] 148 mg/dL High 55-99 [facility] Comment on above: Result Comment: Clemente christopher RN/ Performed By: #### 2 [id number] ####[facility] [address] [place] [address] Glucose [Mass/Vol] 208 mg/dL High 55-99 [facility] Comment on above: Result Comment: Alida renetta Meter Performed By: #### 2 61471800 ####[facility] [address] [place] [address] Glucose [Mass/Vol] 201 mg/dL [facility] [address] [place] [address] Comment on above: Result Comment: Repe at Test Performed By: #### 2 86977660 ####[facility] [address] [place] [address] Glucose [Mass/Vol] 144 mg/dL High 55-99 [facility] Comment on above: Result Comment: Alida renetta Meter Performed By: #### 2 87751476 ####[facility] [address] [place] [address] HEMATOLOGYOrdered By: SYSTEM SYSTEM on 01-24-2023 Basophils/100 WBC (Bld) 0.9 % Normal 0.0 - 2.0 % [facility] HemeAutoSS Basophils/Leukocytes Auto (Bld) [Pure # fraction] 0.1 E9/L Normal 0.0 - 0.2 E9/L [facility] HemeAutoSS Eosinophils/100 WBC (Bld) 8.7 % High 0.0 - 8.0 % [facility] HemeAutoSS Eosinophils/Leukocytes Auto (Bld) [Pure # fraction] [...] 7.0 E9/L Normal 4.0 - 11.0 E9/L [facility] HemeAutoSS Magnesiumon 01-24-2023 Magnesium [Mass/Vol] 1.5 mg/dL Normal 1.3-2.4 [facility] Comment on above: Performed By: #### 2 702968, 9180454, 1404202, 9049999, 70072893, 0762114 ####[facility] [address] [place] [address] Monitor Recordon 01-24-2023 Monitor Record [id number]#1. 00CD:127 Normal [facility] Monitor Record [id number]#1. 00CD:127 Normal [facility] Monitor Record [id number]#1. 00CD:127 Normal [facility] Phosphoruson 01-24-2023 Phosphate [Mass/Vol] 3.8 mg/dL Normal 1.9-4.6 [facility] Comment on above: Performed By: #### 2 706284, 0756809, 1753764, 5755782, 14034331, 1186037 ####[facility] [address] [place] [address] Progress Note-Physicianon Progress Note-Physician [facility] Comment on above: Result Comment: Elec tronically Signed By: John Lyn MD\.br\Date and Time Signed: 01/24/23 14:33 EDT Progress Note-Physician Normal [facility] Comment on above: Result Comment: Elec tronically Signed By: Fallon Rudd RN\.br\Date and Time Signed: 01/24/23 08:05 EDT\.br\Electronically Co-Signed By: Lilia Castanon MD\.br\Date and Time Co-Signed: 01/24/23 10:23 EDT eGFRon 01-24-2023 GFR/1.73 sq M.predicted among blacks MDRD (S/P/Bld) [Vol rate/Area] mL/min/{1.73_m2} Normal >=59 [facility] Comment on above: Order Comment: Order added by Discern Expert. Result Comment: eGFR is race adjusted. AA=. Performed By: #### 2 656473, 8655384, 5762487, 9365953, 75536606, 2451469 ####[facility] [address] [place] [address] GFR/1.73 sq M.predicted among non-blacks MDRD (S/P/Bld) [Vol rate/Area] mL/min/{1.73_m2} Normal >=59 [facility] Comment on above: Order Comment: Order added by Discern Expert. Result Comment: Publishing Director lokesh kidney disease could be indicated at eGFR's of less than 60 mL/min/1.73m2. Kidney failure is indicated at less than 15 mL/min/1.73m2. Performed By: #### 2 897178, 3673972, 2147690, 3716182, 09366533, 5758610 ####[facility] [address] [place] [address] Capillary Glucose POCon 01-04 Glucose [Mass/Vol] 174 mg/dL High 55-99 [facility] Comment on above: Result Comment: Clemente MCCLAIN Performed By: #### 2 45881063 ####[facility] [address] [place] [address] Glucose [Mass/Vol] 140 mg/dL High 55-99 [facility] Comment on above: Result Comment: Clemente MCCLAIN Performed By: #### 2 16927668 ####[facility] [address] [place] [address] Glucose [Mass/Vol] 206 mg/dL High 55-99 [facility] Comment on above: Result Comment: Clemente MCCLAIN Performed By: #### 2 01199434 ####[facility] [address] [place] [address] Glucose [Mass/Vol] 129 mg/dL High 55-99 [facility] Comment on above: Result Comment: Clemente MCCLAIN Performed By: #### 2 28963732 ####[facility] [address] [place] [address] Consultation Noteon 01-24-20 Consultation Note [facility] Comment on above: Result Comment: Elec tronically Signed By: Tobin GONZALEZ, Fallon\.br\Date and Time Signed: 01/23/23 09:08 EDT\.br\Electronically Co-Signed By: Lilia Castanon MD\.br\Date and Time Co-Signed: 01/23/23 10:18 EDT Interdisciplinary Note - Hermelindo e Manageron 01-23-2023 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 Patient will require continued 24 hr supervision/assist at [facility], but, no further OT services needed at this time as pt is close to baseline status for adls. DC inpatient OT services. Normal [facility] Message from Medicareon 01-04 Message from Medicare [id number]#1. 00CD:127 [facility] Monitor Recordon 01-23-2023 Monitor Record [id number]#1. 00CD:127 [facility] Monitor Record [id number]#1. 00CD:127 Normal [facility] Progress Note-Physicianon Progress Note-Physician [facility] Comment on above: Result Comment: Elec tronically Signed By: Eboni LEMONS, John White\.br\Date and Time Signed: 01/23/23 16:00 EDT Auto Diffon 01-22-2023 Basophils/100 WBC (Bld) 1.8 % Normal 0.0-2.0 [facility] Comment on above: Order Comment: Order Added by Discern Expert. Performed By: #### 1 0145595, 30117569, 0853504, 31218709, 3808019, 9575568 ####[facility] [address] [place] [address] Basophils/Leukocytes Auto (Bld) [Pure # fraction] 0.1 E9/L Normal 0.0-0.2 [facility] Comment on above: Order Comment: Order Added by Discern Expert. Performed By: #### 1 8040974, 01938258, 4129418, 12561184, 6906047, 8035068 ####[address] [place] [address] Eosinophils/100 WBC (Bld) 8.7 % High 0.0-8.0 [facility] Comment on above: Order Comment: Order Added by Discern Expert. Performed By: #### 1 7061468, 32331746, 7016026, 55303935, 9057468, 5391919 ####[address] [address] Eosinophils/Leukocytes Auto (Bld) [Pure # fraction] 0.5 E9/L Normal 0.0-0.5 [facility] Comment on above: Order Comment: Order Added by Pearl Expert. Performed By: #### 1 2445906, 68729984, 1067119, 22914760, 6851904, 9659237 ####[address] [place] [address] Lymphocytes/100 WBC (Bld) 37.2 % Normal 14.0-50.0 [facility] Comment on above: Order Comment: Order Added by Discern Expert. Performed By: #### 1 4021442, 56306127, 3858680, 83720978, 5449535, 2452380 ####[address] [place] [address] Lymphocytes/Leukocytes Auto (Bld) [Pure # fraction] 2.3 E9/L Normal 1.0-4.0 [facility] Comment on above: Order Comment: Order Added by Pearl Expert. Performed By: #### 1 0489633, 58014516, 3082764, 61309624, 9762475, 9925987 ####[address] [place] [address] Monocytes/100 WBC (Bld) 7.2 % Normal 4.0-14.0 [facility] Comment on above: Order Comment: Order Added by Pearl Expert. Performed By: #### 1 5622539, 69932610, 9420016, 39779866, 7282314, 6413758 ####[address] [place] [address] Monocytes/Leukocytes Auto (Bld) [Pure # fraction] 0.4 E9/L Normal 0.2-1.0 [facility] Comment on above: Order Comment: Order Added by Pearl Expert. Performed By: #### 1 5724294, 07891903, 7386142, 32491471, 0806691, 0419749 ####[address] [address] Neutrophils/100 WBC (Bld) 45.1 % Normal 36.0-75.0 [facility] Comment on above: Order Comment: Order Added by Discern Expert. Performed By: #### 1 2651989, 50502713, 8957391, 58808333, 0100367, 0239843 ####[address] [address] Neutrophils/Leukocytes Auto (Bld) [Pure # fraction] 2.7 E9/L Normal 2.0-7.5 [facility] Comment on above: Order Comment: Order Added by Pearl Expert. Performed By: #### 1 6136168, 43477306, 8167491, 49385132, 8789316, [id number] ####[facility] [address] [place] [address] BMPon 01-22-2023 Creatinine [Mass/Vol] 1.2 mg/dL Normal 0.5-1.3 [facility] Comment on above: Performed By: #### 1 2668914, 16659851, 0355886, 92207167, 4336354, 7902791 ####[place] [address] [place] [address] Urea nitrogen [Mass/Vol] 25 mg/dL High 5-21 [facility] Comment on above: Performed By: #### 1 2730883, 77502229, 9283064, 52027612, 6112718, 0015685 ####[facility] [address] [place] [address] Urea nitrogen/Creatinine [Mass ratio] 21 No Units High 10-20 [facility] Comment on above: Performed By: #### 1 0844180, 86222115, 1611079, 74126115, 8421983, 7025386 ####[facility] [address] [place] [address] Anion gap [Moles/Vol] 13 mmol/L Normal 6-16 [facility] Comment on above: Performed By: #### 1 8438180, 91143010, 6011598, 14674787, 4769623, 9298198 ####[facility] [address] [place] [address] Calcium [Mass/Vol] 8.6 mg/dL Low 8.9-11.1 [facility] Comment on above: Performed By: #### 1 3554052, 13756126, 5280614, 34907141, 7825426, 6410532 ####[facility] [address] [place] [address] Chloride [Moles/Vol] 105 mmol/L Normal 101-111 [facility] Comment on above: Performed By: #### 1 3591103, 41231067, 8235725, 98962554, 7737654, 7048613 ####[facility] [address] [place] [address] CO2 [Moles/Vol] 24 mmol/L Normal 21-31 [facility] Comment on above: Performed By: #### 1 7862389, 71074450, 5866780, 30633037, 2425080, 9827267 ####[facility] [address] [place] [address] Glucose [Mass/Vol] 227 mg/dL High 55-199 [facility] Comment on above: Result Comment: If t his glucose result represents a fasting glucose, interpretation should refer to the following reference range: 55-99 mg/dL Performed By: #### 1 2484889, 32187607, 5616749, 05088875, 6392754, 1217482 ####[facility] [address] [place] [address] Potassium [Moles/Vol] 4.0 mmol/L Normal 3.5-5.3 [facility] Comment on above: Performed By: #### 1 4783565, 93159075, 8172997, 28985564, 0968786, 5642871 ####[facility] [address] [place] [address] Sodium [Moles/Vol] 138 mmol/L Normal 135-145 [facility] Comment on above: Performed By: #### 1 7931541, 60151449, 1871466, 13584259, 5008654, 9905006 ####[facility] [address] [place] [address] CBC w/ Auto Diffon Erythrocyte distribution width (RBC) [Ratio] 14.8 % High 10.9-14.2 [facility] Comment on above: Performed By: #### 1 0998237, 27640786, 4626203, 53442203, 8657987, 9019798 ####[facility] [address] [place] [address] Hematocrit (Bld) [Volume fraction] 33.8 % Low 37.7-49.0 [facility] Comment on above: Performed By: #### 1 1663910, 41867463, 4739703, 86645498, 9682177, 6510985 ####[facility] [address] [place] [address] Hemoglobin (Bld) [Mass/Vol] 10.9 g/dL Low 13.5-17.5 [facility] Comment on above: Performed By: #### 1 4161683, 00232758, 8927969, 44524235, 2681103, 0988185 ####[facility] [address] [place] [address] MCH (RBC) [Entitic mass] 28.2 pg Normal 27.0-34.0 [facility] Comment on above: Performed By: #### 1 4909863, 64966547, 3317945, 48157788, 2145561, 7749901 ####[place] [place] [address] MCHC (RBC) [Mass/Vol] 32.4 g/dL Normal 31.4-36.0 [facility] Comment on above: Performed By: #### 1 6049310, 50698689, 8468024, 71126821, 0364168, 8100691 ####[address] [address] MCV (RBC) [Entitic vol] 87.1 fL Normal 80.0-100.0 [facility] Comment on above: Performed By: #### 1 0662013, 43940370, 4118492, 69627224, 0253899, 3348255 ####[address] [place] [address] Platelet mean volume (Bld) [Entitic vol] 9.4 fL Normal 6.4-10.8 [facility] Comment on above: Performed By: #### 1 9023916, 91064006, 3750624, 64660632, 2812803, 6363718 ####[address] [place] [address] Platelets (Bld) [#/Vol] 215.0 E9/L Normal 150.0-500.0 [facility] Comment on above: Performed By: #### 1 0430387, 38429921, 0938502, 26737055, 9667679, 1961200 ####[place] [place] [address] RBC (Bld) [#/Vol] 3.9 E12/L Low 4.3-5.9 [facility] Comment on above: Performed By: #### 1 4819609, 87894214, 6529772, 96995689, 1314486, 5590260 ####[facility] [address] [place] [address] WBC corrected for nucl RBC Auto (Bld) [#/Vol] 6.1 E9/L Normal 4.0-11.0 [facility] Comment on above: Performed By: #### 1 1123452, 32876509, 4201468, 83158335, 5535795, 2102487 ####[facility] [address] [place] [address] CHEMISTRYOrdered By: SYSTEM SYSTEM on 01-22-2023 25-hydroxyvitamin D3 [Mass/Vol] 22.0 ng/mL Low 30.0 - 100.0 ng/mL FT Remisol Troponin I.cardiac [Mass/Vol] 5.70 pg/mL Low 15.90 - 38.40 pg/mL [facility] Remisol Troponin I.cardiac [Mass/Vol] 7.20 pg/mL Low 15.90 - 38.40 pg/mL [facility] Remisol Troponin I.cardiac [Mass/Vol] 7.60 pg/mL Low 15.90 - 38.40 pg/mL [facility] Remisol Anion gap [Moles/Vol] 13 mmol/L Normal 6 - 16 mEq/L [facility] Calcium [Mass/Vol] 8.6 mg/dL Low 8.9 - 11. 1 mg/dL [facility] Chloride [Moles/Vol] 105 mmol/L Normal 101 - 1 11 mmol/L [facility] CO2 [Moles/Vol] 24 mmol/L Normal 21 - 31 mmol/L [facility] Creatinine [Mass/Vol] 1.2 mg/dL Normal 0.5 - 1.3 mg/dL [facility]isol GFR/1.73 sq M.predicted among blacks MDRD (S/P/Bld) [Vol rate/Area] mL/min/1.73 m2 Normal >=59mL/min/1 .73 m2 [facility] Chem S GFR/1.73 sq M.predicted among non-blacks MDRD (S/P/Bld) [Vol rate/Area] 60 mL/min/1.73 m2 Normal >=59mL/min/1 .73 m2 [facility] Chem S Glucose [Mass/Vol] 227 mg/dL High 55 - 199 mg/dL [facility] Remisol Potassium [Moles/Vol] 4.0 mmol/L Normal 3.5 - 5.3 mmol/L [facility] Remisol Sodium [Moles/Vol] 138 mmol/L Normal 135 - 145 mmol/L [facility] Remisol Urea nitrogen [Mass/Vol] 25 mg/dL High 5 - 21 mg/dL [facility] Remisol Urea nitrogen/Creatinine [Mass ratio] 21 mg/mg High 10 - 20 [facility] Remisol COAGULATIONOrdered By: Nusrat Aquino on 01-22-2023 aPTT Coag (PPP) [Time] 31.4 s Normal 25.1 - 36.5 second(s) [facility] Auto Coag INR Coag (PPP) [Relative time] 1.1 {INR} Invalid Interpretation Code [facility] Auto Coag PT Coag (PPP) [Time] 11.8 s Normal 9.4 - 1 2.5 second(s) [facility] Auto Coag Capillary Glucose POCon 01-04 Glucose [Mass/Vol] 221 mg/dL High 55-99 [facility] Comment on above: Result Comment: Clemente MCCLAIN Performed By: #### 2 [id number] ####[facility] [address] [place] [address] Glucose [Mass/Vol] 127 mg/dL High 55-99 [facility] Comment on above: Result Comment: Clemente MCCLAIN Performed By: #### 2 58386289 ####[facility] [address] [place] [address] Glucose [Mass/Vol] 131 mg/dL High 55-99 [facility] Comment on above: Result Comment: Clemente MCCLAIN Performed By: #### 2 69692098 ####[facility] [address] [place] [address] Consent for Treatmenton 01-04 Consent for Treatment [id number]#1.0 0CD:127 Normal [facility] ED Clinical Summaryon 2022 ED Clinical Summary Normal [facility] ED Note-Physicianon 01-23-20 ED Note-Physician Normal [facility] Comment on above: Result Comment: Elec tronically Signed By: Vivek Wilder DO\.br\Date and Time Signed: 01/22/23 03:16 EDT ED Patient Education Noteon 01-22-2023 ED Patient Education Note Normal [facility] ED Patient Summaryon 023 ED Patient Summary Normal [facility] EEGon 01-22-2023 EEG Normal [facility] Comment on above: Result Comment: Elec tronically Signed By: Lilia Castanon MD\.br\Date and Time Signed: 01/22/23 10:31 EDT EMS Documentationon 01-23-20 EMS Documentation Normal [facility] HEMATOLOGYOrdered By: SYSTEM SYSTEM on 01-22-2023 [...] Hermelindo e Manageron 01-22-2023 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 Per RN, hold OT eval this date as pt is very lethargic. Normal [facility] Monitor Recordon 01-22-2023 Monitor Record [id number]#1. 00CD:127 Normal [facility] Monitor Record [id number]#1. 00CD:127 Normal [facility] Retirement Recordson 01-22 Retirement Records [id number]#1. 00CD:127 Normal [facility] PT & PTTon 01-22-2023 aPTT Coag (PPP) [Time] 31.4 second(s) Normal 25.1-36.5 [facility] Comment on above: Result Comment: Para [...] the same coagulation reagent and instrumentation as [facility]. Currently there are no coagulation studies available worldwide for children to 14 days, and no normal ranges. Heparin therapeutic range (represented by Anti-Factor Xa activity of 0.2 - 0.4 U/mL) corresponds to PTT of 56.6 - 109.0 sec. Performed By: #### 1 9780367, 86888693, 4418983, 58504582, 7735497, 2267741 ####[facility] [address] [place] [address] INR Coag (PPP) [Relative time] 1.1 {INR} Invalid Interpretation Code [facility] Comment on above: Result Comment: INR results are specifically intended to assess patients stabilized on long-term Anticoagulation therapy suggested INR?s ?Less Intensive Anticoagulation? 2.0 ? 3.0Conventional Range 3.0 ? 4.5 Performed By: #### 1 1347430, 44029397, 2464093, 26052392, 3742007, 2618412 ####[facility] [address] [place] [address] PT Coag (PPP) [Time] 11.8 second(s) Normal 9.4-12.5 [facility] Comment on above: Result Comment: 15 [...] the same coagulation reagent and instrumentation as [facility]. Currently there are no coagulation studies available worldwide for children to 14 days, and no normal ranges. Performed By: #### 1 8062599, 73943307, 1671573, 35850427, 1108452, 0982571 ####[facility] [address] [place] [address] Pre-Arrival Noteon 3 Pre-Arrival Note Normal [facility] Pre-Arrival Note Normal [facility] Troponin 0 Hr.on 01-22-2023 Troponin I.cardiac [Mass/Vol] 6.90 pg/mL Low 15.90-38.40 [facility] Comment on above: Result Comment: The 95% CI (Confidence Interval) PPV (Positive Predictive Value) for myocardial infarction in females is 38 pg/mL, in males 51 pg/mL. The results should be used in conjunction with clinical conditions of myocardial infarction.(Access High Sensitivity Troponin I Instructions For Use, Trin[employer] Howell, May 2018) Performed By: #### 1 5208947, 06621856, 8729031, 10260312, 8741287, 0086765 ####[facility] [address] [place] [address] Troponin 3 Hr.on 01-22-2023 Troponin I.cardiac [Mass/Vol] 7.60 pg/mL Low 15.90-38.40 [facility] Comment on above: Result Comment: The 95% CI (Confidence Interval) PPV (Positive Predictive Value) for myocardial infarction in females is 38 pg/mL, in males 51 pg/mL. The results should be used in conjunction with clinical conditions of myocardial infarction.(Access High Sensitivity Troponin I Instructions For Use, [employer], May 2018) Performed By: #### 1 8206786 ####[facility] [address] [place] [address] Troponin 6 Hr.on 01-22-2023 Troponin I.cardiac [Mass/Vol] 7.20 pg/mL Low 15.90-38.40 [facility] Comment on above: Result Comment: The 95% CI (Confidence Interval) PPV (Positive Predictive Value) for myocardial infarction in females is 38 pg/mL, in males 51 pg/mL. The results should be used in conjunction with clinical conditions of myocardial infarction.(Access High Sensitivity Troponin I Instructions For Use, [employer], May 2018) Performed By: #### 1 [id number] ####[facility] [address] [place] [address] Troponin 9 Hr.on 01-22-2023 Troponin I.cardiac [Mass/Vol] 5.70 pg/mL Low 15.90-38.40 [facility] Comment on above: Result Comment: The 95% CI (Confidence Interval) PPV (Positive Predictive Value) for myocardial infarction in females is 38 pg/mL, in males 51 pg/mL. The results should be used in conjunction with clinical conditions of myocardial infarction.(Access High Sensitivity Troponin I Instructions For Use, [employer], May 2018) Performed By: #### 1 4643432 ####[facility] [address] [place] [address] Vitamin D 25 Hydroxyon 01-22 25-hydroxyvitamin D3 [Mass/Vol] 22.0 ng/mL Low 30.0-100.0 [facility] Comment on above: Result Comment: Vit castellano D deficiency has been defined as a level of serum 25-OH vitamin D less than 20 ng/mL (1,2) by the [place] of Medicine and an Endocrine Society practice guideline. The Endocrine Society further defined vitamin D insufficiency as a level between 21 and 29 ng/mL (2). 1. IOM ([place] of Medicine). 2010. Dietary reference intakes for calcium and D. [place]: The National Academies Press. 2. Mary MF, Mg MCKEON, Tari THOMAS, et al. Evaluation, treatment, and prevention of vitamin D deficiency: an Endocrine Society clinical practice guideline. JCEM. 2010; 96 (7):1911-30. Performed By: #### 5 [id number] ####[facility] [address] [place] [address] XR Chest Single Viewon 01-22 XR Chest Single View Normal [facility] eGFRon 01-22-2023 GFR/1.73 sq M.predicted among blacks MDRD (S/P/Bld) [Vol rate/Area] mL/min/{1.73_m2} Normal >=59 [facility] Comment on above: Order Comment: Order added by Discern Expert. Result Comment: eGFR is race adjusted. AA=. Performed By: #### 1 9506619, 07089860, 0768009, 82401325, 7947299, 8888737 ####[facility] [address] [place] [address] GFR/1.73 sq M.predicted among non-blacks MDRD (S/P/Bld) [Vol rate/Area] 60 mL/min/1.73 m2 Normal >=59 [facility] Comment on above: Order Comment: Order added by Discern Expert. Result Comment: Publishing Director lokesh kidney disease could be indicated at eGFR's of less than 60 mL/min/1.73m2. Kidney failure is indicated at less than 15 mL/min/1.73m2. Performed By: #### 1 5447912, 29670953, 3590536, 16007839, 6208302, 5620122 ####[facility] [address] [place] [address] Coding Summary.on 01-21-2023 Coding Summary. Normal [facility] Consent for Procedure/Surger yon 01-21-2023 Consent for Procedure/Surgery [id number]#1. 00CD:127 Normal [facility] Discharge Instructionson Discharge Instructions [id number]#1. 00CD:127 Normal [facility] Transfer Documentson 023 Transfer Documents [id number]#1. 00CD:127 Normal [facility] Capillary Glucose POCon 01-03 Glucose [Mass/Vol] 172 mg/dL High 55-99 [facility] Comment on above: Result Comment: Clemente christopher RN/ Performed By: #### 2 [id number] ####[facility] [address] [place] [address] Glucose [Mass/Vol] 119 mg/dL High 55-99 [facility] Comment on above: Result Comment: Clemente MCCLAIN Performed By: #### 2 11940103 ####[facility] [address] [place] [address] Discharge Note-Nursingon Discharge Note-Nursing [facility] Inpatient Clinical Summaryon 01-20-2023 Inpatient Clinical Summary Normal [facility] Inpatient Patient Summaryon 01-20-2023 Inpatient Patient Summary [facility] Interdisciplinary Note - Hermelindo e Manageron 01-20-2023 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 00CD:127 Normal [facility] Monitor Recordon 01-20-2023 Monitor Record [id number]#1. 00CD:127 Normal [facility] Monitor Record [id number]#1. 00CD:127 Normal [facility] Monitor Record [id number]#1. 00CD:127 Normal [facility] Stress EKG Tracingson 2022 Stress EKG Tracings [id number]#1. 00CD:127 Normal [facility] Auto Diffon 01-19-2023 Basophils/100 WBC (Bld) 0.7 % Normal 0.0-2.0 [facility] Comment on above: Order Comment: Order Added by Discern Expert. Performed By: #### 2 457485, 9349424, 82261339, 5881361, 8840962 ####[facility] [address] [place] [address] Basophils/Leukocytes Auto (Bld) [Pure # fraction] 0.0 E9/L Normal 0.0-0.2 [facility] Comment on above: Order Comment: Order Added by Discern Expert. Performed By: #### 2 909413, 1891420, 73579130, 6102921, 0959093 ####[facility] [address] [place] [address] Eosinophils/100 WBC (Bld) 10.3 % High 0.0-8.0 [facility] Comment on above: Order Comment: Order Added by Discern Expert. Performed By: #### 2 009140, 4426145, 66458846, 3908462, 1637916 ####[facility] [address] [place] [address] Eosinophils/Leukocytes Auto (Bld) [Pure # fraction] 0.7 E9/L High 0.0-0.5 [facility] Comment on above: Order Comment: Order Added by Discern Expert. Performed By: #### 2 225714, 7265033, 82465579, 6637944, 6968585 ####[facility] [address] [place] [address] Lymphocytes/100 WBC (Bld) 38.3 % Normal 14.0-50.0 [facility] Comment on above: Order Comment: Order Added by Discern Expert. Performed By: #### 2 332299, 5789903, 98790046, 8848789, 5483188 ####[address] [place] [address] Lymphocytes/Leukocytes Auto (Bld) [Pure # fraction] 2.5 E9/L Normal 1.0-4.0 [facility] Comment on above: Order Comment: Order Added by Pearl Expert. Performed By: #### 2 061025, 8990974, 95242275, 2043640, 4455470 ####[address] [place] [address] Monocytes/100 WBC (Bld) 6.6 % Normal 4.0-14.0 [facility] Comment on above: Order Comment: Order Added by Pearl Expert. Performed By: #### 2 185196, 2199891, 26426422, 3283848, 4128967 ####[address] [place] [address] Monocytes/Leukocytes Auto (Bld) [Pure # fraction] 0.4 E9/L Normal 0.2-1.0 [facility] Comment on above: Order Comment: Order Added by Pearl Expert. Performed By: #### 2 979601, 0609901, 38525830, 4256104, 2245112 ####[place] [place] [address] Neutrophils/100 WBC (Bld) 44.1 % Normal 36.0-75.0 [facility] Comment on above: Order Comment: Order Added by Pearl Expert. Performed By: #### 2 377633, 4480484, 28869966, 1535721, 4312496 ####[address] [place] [address] Neutrophils/Leukocytes Auto (Bld) [Pure # fraction] 2.8 E9/L Normal 2.0-7.5 [facility] Comment on above: Order Comment: Order Added by Pearl Expert. Performed By: #### 2 346955, 0763055, 97196398, 2173188, 3640323 ####[facility] [address] [place] [address] BMPon 01-19-2023 Anion gap [Moles/Vol] 10 mmol/L Normal 6-16 [facility] Comment on above: Performed By: #### 2 201642, 3144187, 71687069, 0677468, 2209429 ####[facility] [address] [place] [address] Calcium [Mass/Vol] 8.6 mg/dL Low 8.9-11.1 [facility] Comment on above: Performed By: #### 2 009844, 5424294, 48327341, 7843690, 6805911 ####[facility] [address] [place] [address] Chloride [Moles/Vol] 108 mmol/L Normal 101-111 [facility] Comment on above: Performed By: #### 2 560635, 3724063, 80503746, 4694770, 9198175 ####[facility] [address] [facility] [place] [address] CO2 [Moles/Vol] 27 mmol/L Normal 21-31 [facility] Comment on above: Performed By: #### 2 417437, 1571246, 58939773, 3899309, 0997192 ####[facility] [address] [place] [address] Creatinine [Mass/Vol] 0.8 mg/dL Normal 0.5-1.3 [facility] Comment on above: Performed By: #### 2 306109, 7393190, 58397404, 6497596, 3063642 ####[facility] [address] [place] [address] Glucose [Mass/Vol] 118 mg/dL Normal 55-199 [facility] Comment on above: Result Comment: If t his glucose result represents a fasting glucose, interpretation should refer to the following reference range: 55-99 mg/dL Performed By: #### 2 880015, 7393514, 05455459, 5082285, 6057410 ####[facility] [address] [place] [address] Potassium [Moles/Vol] 3.7 mmol/L Normal 3.5-5.3 [facility] Comment on above: Performed By: #### 2 662117, 1372988, 85896536, 5467750, 8809907 ####[facility] [address] [place] [address] Sodium [Moles/Vol] 141 mmol/L Normal 135-145 [facility] Comment on above: Performed By: #### 2 600002, 8673658, 34769988, 9284502, 7660295 ####[facility] [address] [place] [address] Urea nitrogen [Mass/Vol] 25 mg/dL High 5-21 [facility] Comment on above: Performed By: #### 2 889993, 9631770, 97623577, 1936625, 5094224 ####[facility] [address] [place] [address] Urea nitrogen/Creatinine [Mass ratio] 31 No Units High 10-20 [facility] Comment on above: Performed By: #### 2 625592, 6025584, 58718042, 0649908, 4604660 ####[facility] [address] [place] [address] CBC w/ Auto Diffon Erythrocyte distribution width (RBC) [Ratio] 14.8 % High 10.9-14.2 [facility] Comment on above: Performed By: #### 2 106395, 6075993, 11469552, 0614239, 9500760 ####[facility] [address] [place] [address] Hematocrit (Bld) [Volume fraction] 33.7 % Low 37.7-49.0 [facility] Comment on above: Performed By: #### 2 192111, 6415048, 82484561, 2981306, 3646772 ####[facility] [address] [place] [address] Hemoglobin (Bld) [Mass/Vol] 11.0 g/dL Low 13.5-17.5 [facility] Comment on above: Performed By: #### 2 416912, 7569190, 82089487, 8451947, 5039025 ####[facility] [address] [place] [address] MCH (RBC) [Entitic mass] 28.7 pg Normal 27.0-34.0 [facility] Comment on above: Performed By: #### 2 008975, 6825649, 78356783, 4022820, 0658335 ####[address] [place] [address] MCHC (RBC) [Mass/Vol] 32.7 g/dL Normal 31.4-36.0 [facility] Comment on above: Performed By: #### 2 726495, 0802369, 01413030, 6880003, 4308046 ####[address] [address] MCV (RBC) [Entitic vol] 87.7 fL Normal 80.0-100.0 [facility] Comment on above: Performed By: #### 2 311717, 5353215, 39347466, 9275246, 8897229 ####[address] [address] Platelet mean volume (Bld) [Entitic vol] 8.5 fL Normal 6.4-10.8 [facility] Comment on above: Performed By: #### 2 640168, 5730465, 25093597, 4921745, 3242383 ####[address] [place] [address] Platelets (Bld) [#/Vol] 208.0 E9/L Normal 150.0-500.0 [facility] Comment on above: Performed By: #### 2 413402, 8773052, 74736245, 4980911, 8071042 ####[address] [address] RBC (Bld) [#/Vol] 3.8 E12/L Low 4.3-5.9 [facility] Comment on above: Performed By: #### 2 627240, 3828800, 72088627, 5503316, 0447221 ####[facility] [address] [place] [address] WBC corrected for nucl RBC Auto (Bld) [#/Vol] 6.5 E9/L Normal 4.0-11.0 [facility] Comment on above: Performed By: #### 2 757759, 8700821, 99247039, 2229919, 9629161 ####[facility] [address] [place] [address] Capillary Glucose POCon 01-03 Glucose [Mass/Vol] 158 mg/dL High 55-99 [facility] Comment on above: Result Comment: Clemente MCCLAIN Performed By: #### 2 [id number] ####[facility] [address] [place] [address] Glucose [Mass/Vol] 149 mg/dL High 55-99 [facility] Comment on above: Result Comment: Clemente MCCLAIN Performed By: #### 2 07361777 ####[facility] [address] [place] [address] Glucose [Mass/Vol] 111 mg/dL High 55-99 [facility] Comment on above: Result Comment: Clemente MCCLAIN Performed By: #### 2 96421557 ####[facility] [address] [place] [address] Glucose [Mass/Vol] 104 mg/dL High 55-99 [facility] Comment on above: Result Comment: Clemente MCCLAIN Performed By: #### 2 31674343 ####[facility] [address] [place] [address] Interdisciplinary Note - Hermelindo e Manageron 01-19-2023 Interdisciplinary Note - Rigging Loft Mechanic Normal [facility] Comment on above: Result Comment: Elec tronically Signed By: Brianna Adams\.br\Date and Time Signed: 01/19/23 15:20 EDT Magnesiumon 01-19-2023 Magnesium [Mass/Vol] 1.6 mg/dL Normal 1.3-2.4 [facility] Comment on above: Performed By: #### 2 308399, 7579397, 62005167, 5861715, 0479911 ####[facility] [address] [place] [address] Monitor Recordon 01-19-2023 Monitor Record [id number]#1. 00CD:127 Normal [facility] Monitor Record [id number]#1. 00CD:127 Normal [facility] Monitor Record [id number]#1. 00CD:127 Normal [facility] Monitor Record [id number]#1. 00CD:127 Normal [facility] Progress Note-Physicianon Progress Note-Physician Normal [facility] Comment on above: Result Comment: Elec tronically Signed By: Claudio Moseley MD\.br\Date and Time Signed: 01/19/23 15:51 EDT Progress Note-Physician Normal [facility] Comment on above: Result Comment: Elec tronically Signed By: Saira GONZALEZ, Rajni Arteaga\.br\Date and Time Signed: 01/19/23 07:30 EDT\.br\Electronically Co-Signed By: Kumar Mathias DO\.br\Date and Time Co-Signed: 01/19/23 09:33 EDT Progress Note-Physician Normal [facility] Comment on above: Result Comment: Elec tronically Signed By: Torey LEMONS, Mahesh Johns\.br\Date and Time Signed: 01/19/23 07:50 EDT US CAROTID ART BILon 023 US CAROTID ART MATTHIAS Normal [facility] eGFRon 01-19-2023 GFR/1.73 sq M.predicted among blacks MDRD (S/P/Bld) [Vol rate/Area] mL/min/{1.73_m2} Normal >=59 [facility] Comment on above: Order Comment: Order added by Discern Expert. Result Comment: eGFR is race adjusted. AA=. Performed By: #### 2 008189, 7943527, 32894681, 7278737, 8235994 ####[facility] [address] [place] [address] GFR/1.73 sq M.predicted among non-blacks MDRD (S/P/Bld) [Vol rate/Area] mL/min/{1.73_m2} Normal >=59 [facility] Comment on above: Order Comment: Order added by Discern Expert. Result Comment: Publishing Director lokesh kidney disease could be indicated at eGFR's of less than 60 mL/min/1.73m2. Kidney failure is indicated at less than 15 mL/min/1.73m2. Performed By: #### 2 620752, 4489220, 63241102, 0457292, 1509788 ####[facility] [address] [place] [address] Blood Gas Art, with Lytes, G kj, [place] 01-18-2023 FIO2 BG 21 Invalid Interpretation Code [facility] Comment on above: Performed By: #### 4 [id number] ####[facility] [address] [place] [address] Capillary Glucose POCon 01-03 Glucose [Mass/Vol] 202 mg/dL High 55-99 [facility] Comment on above: Result Comment: Clemente MCCLAIN Performed By: #### 2 [id number] ####[facility] [address] [place] [address] Glucose [Mass/Vol] 171 mg/dL High 55-99 [facility] Comment on above: Result Comment: Clemente MCCLAIN Performed By: #### 2 03082386 ####[facility] [address] [place] [address] Glucose [Mass/Vol] 108 mg/dL High 55-99 [facility] Comment on above: Result Comment: Alida jackson Meter Performed By: #### 2 30597192 ####[facility] [address] [place] [address] Glucose [Mass/Vol] 85 mg/dL Normal 55-99 [facility] Comment on above: Result Comment: Clemente christopher RN/ Performed By: #### 2 38468635 ####[facility] [address] [place] [address] Consultation Noteon 01-19-20 Consultation Note Normal [facility] Comment on above: Result Comment: Elec tronically Signed By: Saira GONZALEZ, Rajni Arteaga\.br\Date and Time Signed: 01/18/23 07:10 EDT\.br\Electronically Co-Signed By: Lilia Castanon MD\.br\Date and Time Co-Signed: 01/18/23 09:00 EDT Consultation Note Normal [facility] Comment on above: Result Comment: Elec tronically Signed By: Mahesh Lema MD\.br\Date and Time Signed: 01/18/23 08:43 EDT Interdisciplinary Note - Hermelindo e Manageron 01-18-2023 Interdisciplinary Note - Rigging Loft Mechanic Normal [facility] Comment on above: Result Comment: Elec tronically Signed By: Meredith Reilly RN\.br\Date and Time Signed: 01/18/23 14:57 EDT Interdisciplinary Note - Hortensia n 01-18-2023 Interdisciplinary Note - OT Normal [facility] Interdisciplinary Note - PTo n 01-18-2023 Interdisciplinary Note - PT Normal [facility] Lipid Panelon 01-18-2023 Cholesterol [Mass/Vol] 131 mg/dL Normal 120-200 [facility] Comment on above: Performed By: #### 2 586268 ####[facility] [address] [place] [address] Cholesterol in HDL [Mass/Vol] 37 mg/dL Invalid Interpretation Code [facility] Comment on above: Result Comment: HDL > or equal to 60 mg/dL: Low cardiovascular riskHDL < 40 mg/dL : High cardiovascular risk Performed By: #### 2 905549 ####[facility] [address] [place] [address] Cholesterol in LDL [Mass/Vol] 77 mg/dL Normal <=129 [facility] Comment on above: Performed By: #### 2 563238 ####[facility] [address] [place] [address] Cholesterol in VLDL [Mass/Vol] 13 mg/dL Normal 7-40 [facility] Comment on above: Performed By: #### 2 209086 ####[facility] [address] [place] [address] Triglyceride [Mass/Vol] 65 mg/dL Normal <=149 [facility] Comment on above: Performed By: #### 2 983564 ####[facility] [address] [place] [address] Monitor Recordon 01-18-2023 Monitor Record [id number]#1. 00CD:127 Normal [facility] Monitor Record [id number]#1. 00CD:127 Normal [facility] Monitor Record [id number]#1. 00CD:127 Normal [facility] Monitor Record [id number]#1. 00CD:127 Normal [facility] Progress Note-Physicianon Progress Note-Physician Normal [facility] Comment on above: Result Comment: Elec tronically Signed By: DONYA LEMONS, Ayaan Wells\.br\Date and Time Signed: 01/18/23 08:30 EDT Troponin 9 Hr.on 01-18-2023 Troponin I.cardiac [Mass/Vol] 7.20 pg/mL Low 15.90-38.40 [facility] Comment on above: Result Comment: The 95% CI (Confidence Interval) PPV (Positive Predictive Value) for myocardial infarction in females is 38 pg/mL, in males 51 pg/mL. The results should be used in conjunction with clinical conditions of myocardial infarction.(Access High Sensitivity Troponin I Instructions For Use, Trinh Howell, May 2018) Performed By: #### 1 [id number] ####[facility] [address] [place] [address] UA With Cult Reflexon 2022 Bilirubin Ql (U) Negative Normal Negative [facility] Comment on above: Performed By: #### 1 7957557 ####[facility] [address] [place] [address], [place] [address] Clarity (U) CLEAR Normal Clear [facility] Comment on above: Performed By: #### 1 0586515 ####[address] [place] [address] Color (U) YELLOW Normal Yellow [facility] Comment on above: Performed By: #### 1 0297990 ####[address] [address] Epithelial cells.squamous LM.HPF (Urine sed) [#/Area] 0-2 Normal 0-2 [facility] Comment on above: Performed By: #### 1 5905261 ####[facility] [address] [place] [address] Glucose Test strip (U) [Mass/Vol] Negative Normal Negative [facility] Comment on above: Performed By: #### 1 6831438 ####[address] [address] Hemoglobin Ql (U) Negative Normal Negative [facility] Comment on above: Performed By: #### 1 6915512 ####[facility] [address] [place] [address] Ketones (U) [Mass/Vol] Negative Normal Negative Fi [facility] Comment on above: Performed By: #### 1 1573616 ####[address] [address] [place].plasma/[place] .RBC (Bld) [Mass ratio] 0-3 Normal 0-3 [facility] Comment on above: Performed By: #### 1 7330723 ####[address] [address] Nitrite Ql (U) Negative Normal Negative [facility] Comment on above: Performed By: #### 1 7284465 ####[facility] [address] [place] [address] pH (U) 6.0 [pH] Invalid Interpretation Code 5.0-9.0 [facility] Comment on above: Performed By: #### 1 2508887 ####[address] [address] Protein (U) [Mass/Vol] Negative Normal Negative [facility] Comment on above: Performed By: #### 1 2826294 ####[address] [address] Specific gravity (U) [Rel density] 1.015 Invalid Interpretation Code 1.005-1.030 [facility] Comment on above: Performed By: #### 1 8777690 ####[address] [address] Type of Urine collection method Clean Catch Normal [facility] Comment on above: Performed By: #### 1 1001409 ####[address] [address] Urobilinogen Qn (U) 0.2 {Alyssia'U}/dL Normal 0.0-1.0 [facility] Comment on above: Performed By: #### 1 1844345 ####[address] [address] WBC Auto Ql (U) Negative Normal Negative [facility] Comment on above: Performed By: #### 1 7681564 ####[address] [address] WBC LM.HPF (Urine sed) [#/Area] 0-5 Normal 0-5 [facility] Comment on above: Performed By: #### 1 1008654 ####[address] [address] Auto Diffon 01-17-2023 Basophils/100 WBC (Bld) 0.7 % Normal 0.0-2.0 [facility] Comment on above: Order Comment: Order Added by Discern Expert. Performed By: #### 2 850203, 8086571, 29640338, 4113147, 20168099, 70158474 ####[address] [address] Basophils/Leukocytes Auto (Bld) [Pure # fraction] 0.0 E9/L Normal 0.0-0.2 [facility] Comment on above: Order Comment: Order Added by Discern Expert. Performed By: #### 2 505241, 5817108, 21387054, 7065102, 87019202, 30974837 ####[address] [address] Eosinophils/100 WBC (Bld) 10.6 % High 0.0-8.0 [facility] Comment on above: Order Comment: Order Added by Discern Expert. Performed By: #### 2 842434, 9976318, 16469764, 6815223, 82294729, 66453135 ####[address] [address] Eosinophils/Leukocytes Auto (Bld) [Pure # fraction] 0.7 E9/L High 0.0-0.5 [facility] Comment on above: Order Comment: Order Added by Discern Expert. Performed By: #### 2 289767, 1358427, 46086611, 7916839, 28733348, 92254715 ####[address] [address] Lymphocytes/100 WBC (Bld) 25.5 % Normal 14.0-50.0 [facility] Comment on above: Order Comment: Order Added by Discern Expert. Performed By: #### 2 294771, 1954020, 78931313, 2866730, 44433619, 04612911 ####[address] [address] Lymphocytes/Leukocytes Auto (Bld) [Pure # fraction] 1.6 E9/L Normal 1.0-4.0 [facility] Comment on above: Order Comment: Order Added by Discern Expert. Performed By: #### 2 963198, 5036263, 81725013, 4167033, 71339879, 19882914 ####[facility] [address] [place] [address] Monocytes/100 WBC (Bld) 6.7 % Normal 4.0-14.0 [facility] Comment on above: Order Comment: Order Added by Discern Expert. Performed By: #### 2 166986, 3303204, 70169375, 9059424, 69861021, 75604989 ####[address] [place] [address] Monocytes/Leukocytes Auto (Bld) [Pure # fraction] 0.4 E9/L Normal 0.2-1.0 [facility] Comment on above: Order Comment: Order Added by Pearl Expert. Performed By: #### 2 116466, 5811191, 16430194, 0693138, 61466329, 92626400 ####[address] [address] Neutrophils/100 WBC (Bld) 56.5 % Normal 36.0-75.0 [facility] Comment on above: Order Comment: Order Added by Discern Expert. Performed By: #### 2 535207, 6894394, 70374934, 4294207, 51690493, 77316861 ####[address] [address] Neutrophils/Leukocytes Auto (Bld) [Pure # fraction] 3.5 E9/L Normal 2.0-7.5 [facility] Comment on above: Order Comment: Order Added by Discern Expert. Performed By: #### 2 365878, 0096781, 81944337, 2094556, 71984809, 72265634 ####[address] [place] [address] BB Draw & Holdon 01-17-2023 BB D&H Sample drawn for Blo od Ba Normal [facility] Comment on above: Performed By: #### 1 8119698 ####[facility] [address] [place] [address] BMPon 01-17-2023 Creatinine [Mass/Vol] 1.3 mg/dL Normal 0.5-1.3 [facility] Comment on above: Performed By: #### 2 125525, 3912197, 91718977, 4697567, 83308061, 51377737 ####[facility] [address] [place] [address] Urea nitrogen [Mass/Vol] 35 mg/dL High 5-21 [facility] Comment on above: Performed By: #### 2 067452, 9881307, 36366341, 1918907, 52971409, 30214527 ####[facility] [address] [place] [address] Urea nitrogen/Creatinine [Mass ratio] 27 No Units High 10-20 [facility] Comment on above: Performed By: #### 2 918432, 3202338, 74726227, 8896758, 86801074, 95862126 ####[facility] [address] [place] [address] Anion gap [Moles/Vol] 14 mmol/L Normal 6-16 [facility] Comment on above: Performed By: #### 2 804168, 0780734, 27297522, 6553167, 69535239, 16444888 ####[facility] [address] [place] [address] Calcium [Mass/Vol] 8.7 mg/dL Low 8.9-11.1 [facility] Comment on above: Performed By: #### 2 635629, 3439476, 99145332, 0011877, 94017076, 01352581 ####[facility] [address] [place] [address] Chloride [Moles/Vol] 103 mmol/L Normal 101-111 [facility] Comment on above: Performed By: #### 2 877328, 2103307, 57913157, 0561080, 71287764, 06325087 ####[facility] [address] [place] [address] CO2 [Moles/Vol] 24 mmol/L Normal 21-31 [facility] Comment on above: Performed By: #### 2 493527, 5855472, 88114663, 7178003, 53226087, 08273677 ####[facility] [address] [place] [address] Glucose [Mass/Vol] 275 mg/dL High 55-199 [facility] Comment on above: Result Comment: If t his glucose result represents a fasting glucose, interpretation should refer to the following reference range: 55-99 mg/dL Performed By: #### 2 439106, 1913791, 28641691, 4088524, 12981737, 92830811 ####[facility] [address] [place] [address] Potassium [Moles/Vol] 4.1 mmol/L Normal 3.5-5.3 [facility] Comment on above: Performed By: #### 2 373939, 5228396, 31722629, 4909465, 01201892, 41957230 ####[facility] [address] [place] [address] Sodium [Moles/Vol] 137 mmol/L Normal 135-145 [facility] Comment on above: Performed By: #### 2 468402, 0522794, 21829086, 3121909, 27229315, 67036743 ####[facility] [address] [place] [address] Blood Gas Art, with Lytes, G kj, [place] 01-17-2023 a/A Ratio Art 65.10 % Normal >=0.80 [facility] Comment on above: Performed By: #### 4 83474375 ####[facility] [address] [place] [address] AaDO2 Art 35.1 mmHg High 5.0-15.0 [facility] Comment on above: Performed By: #### 4 36125213 ####[facility] [address] [place] [address] Allens Test Positive Normal [facility] Comment on above: Performed By: #### 4 72504097 ####[facility] [address] [place] [address] Base Excess Arterial 3.7 mmol/L Normal >=2.8 [facility] Comment on above: Performed By: #### 4 86081150 ####[facility] [address] [place] [address] cCa2+ Art 4.74 mg/dL Normal 4.40-5.30 [facility] Comment on above: Performed By: #### 4 19464250 ####[facility] [address] [place] [address] cCl- Art 103.0 mmol/L Normal 101.0-111.0 [facility] Comment on above: Performed By: #### 4 11744355 ####[facility] [address] [place] [address] cGlu Art 247 mg/dL High 55-99 [facility] Comment on above: Performed By: #### 4 22004883 ####[facility] [address] [place] [address] cK+ Art 4.3 mmol/L Normal 3.5-5.3 [facility] Comment on above: Performed By: #### 4 36758459 ####[facility] [address] [place] [address] cLac Art .5 mmol/L Normal .5-2.2 [facility] Comment on above: Performed By: #### 4 43050190 ####[facility] [address] [place] [address] aitchbone breaker+ Art 141.0 mmol/L Normal 135.0-145.0 [facility] Comment on above: Performed By: #### 4 25287578 ####[facility] [address] [place] [address] Drawn by jered tejada Invalid Interpretation Code [facility] Comment on above: Performed By: #### 4 08434595 ####[facility] [address] [place] [facility] [place] [address] FCOHb Art 1.2 % Low 1.5-4.9 [facility] Comment on above: Result Comment: Refe rence rangeNonsmoker <1.5%Smoker <5.0%Heavy Smoker <9.0% Performed By: #### 4 62707602 ####[facility] [address] [place] [address] FMetHb Art 0.3 % Normal 0.0-1.9 [facility] Comment on above: Performed By: #### 4 48185077 ####[facility] [address] [place] [address] FO2Hb Art 92.1 % Low 93.0-100.0 [facility] Comment on above: Performed By: #### 4 27907127 ####[facility] [address] [place] [address] HCO3 (Bld) [Moles/Vol] 27.6 mmol/L High 22.0-26.0 [facility] Comment on above: Performed By: #### 4 90530627 ####[facility] [address] [place] [address] Hemoglobin (Bld) [Mass/Vol] 10.9 g/dL Low 12.0-17.0 [facility] Comment on above: Performed By: #### 4 10167382 ####[facility] [address] [place] [address] Oxygen saturation in Blood 93.5 % Low 95.0-100.0 [facility] Comment on above: Performed By: #### 4 47515763 ####[facility] [address] [place] [address] P CO2 Arterial 38.8 mmHg Normal 35.0-45.0 [facility] Comment on above: Performed By: #### 4 81129719 ####[facility] [address] [place] [address] P O2 Arterial 65.5 mmHg Low 80.0-100.0 [facility] Comment on above: Performed By: #### 4 92312564 ####[facility] [address] [place] [address] pH Arterial 7.462 High 7.350-7.450 [facility] Comment on above: Performed By: #### 4 81151733 ####[address] [address] Sample Site L Radial Normal [facility] Comment on above: Performed By: #### 4 35841821 ####[address] [address] Sample Type Arterial Draw Normal [facility] Comment on above: Performed By: #### 4 69212258 ####[place] [address] CBC w/ Auto Diffon 3 Erythrocyte distribution width (RBC) [Ratio] 15.3 % High 10.9-14.2 [facility] Comment on above: Performed By: #### 2 256057, 5643564, 91178802, 5003108, 96761528, 27942076 ####[address] [place] [address] Hematocrit (Bld) [Volume fraction] 34.4 % Low 37.7-49.0 [facility] Comment on above: Performed By: #### 2 017443, 1880472, 22286888, 3564808, 47613454, 81560920 ####[facility] [address] [place] [address] Hemoglobin (Bld) [Mass/Vol] 11.1 g/dL Low 13.5-17.5 [facility] Comment on above: Performed By: #### 2 586263, 8483086, 45372065, 2467120, 16325840, 16308656 ####[address] [address] MCH (RBC) [Entitic mass] 28.3 pg Normal 27.0-34.0 [facility] Comment on above: Performed By: #### 2 029865, 1970995, 37474006, 3555263, 82473067, 46570284 ####[address] [address] MCHC (RBC) [Mass/Vol] 32.2 g/dL Normal 31.4-36.0 [facility] Comment on above: Performed By: #### 2 705986, 4959370, 64071798, 8986958, 34269504, 45898469 ####[address] [address] MCV (RBC) [Entitic vol] 87.8 fL Normal 80.0-100.0 [facility] Comment on above: Performed By: #### 2 426659, 7045637, 26222461, 1079422, 00724977, 21278714 ####[address] [address] Platelet mean volume (Bld) [Entitic vol] 8.9 fL Normal 6.4-10.8 [facility] Comment on above: Performed By: #### 2 841450, 7987776, 63139123, 8297740, 14951072, 15709132 ####[address] [address] Platelets (Bld) [#/Vol] 217.0 E9/L Normal 150.0-500.0 [facility] Comment on above: Performed By: #### 2 305429, 9824864, 19147265, 9991740, 40610579, 92866906 ####[address] [address] RBC (Bld) [#/Vol] 3.9 E12/L Low 4.3-5.9 [facility] Comment on above: Performed By: #### 2 498691, 7938086, 84273277, 6524417, 26174351, 02921500 ####[facility] [address] [place] [address] WBC corrected for nucl RBC Auto (Bld) [#/Vol] 6.3 E9/L Normal 4.0-11.0 [facility] Comment on above: Performed By: #### 2 114311, 2467469, 36314231, 7038652, 15556215, 79125714 ####[facility] [address] [place] [address] CT Head or Brain w/o Contras ton 01-17-2023 CT Head or Brain w/o Contrast Normal [facility] CT Spine Cervical w/o Contra ston 01-17-2023 CT Spine Cervical w/o Contrast Normal [facility] Capillary Glucose POCon 01-03 Glucose [Mass/Vol] 226 mg/dL High 55-99 [facility] Comment on above: Result Comment: Clemente MCCLAIN Performed By: #### 2 32044617 ####[address] [place] [address] Glucose [Mass/Vol] 172 mg/dL High 55-[address] [place] [address] Comment on above: Result Comment: Clemente MCCLAIN Performed By: #### 2 65653166 ####[address] [place] [address] Consent for Treatmenton 01-03 Consent for Treatment [id number]:127 Normal [facility] ED Clinical Summaryon 2022 ED Clinical Summary Normal [facility] ED Note-Physicianon 01-18-20 ED Note-Physician Normal [facility] Comment on above: Result Comment: Elec tronically Signed By: Ander Dorman PA-C\.br\Date and Time Signed: 01/17/23 16:01 EDT\.br\Electronically Co-Signed By: Radha Huertas Katherin Null\Date and Time Co-Signed: 01/17/23 17:21 EDT ED Patient Education Noteon 01-17-2023 ED Patient Education Note Normal [facility] ED Patient Summaryon 023 ED Patient Summary Normal [facility] ED Traumaon 01-17-2023 ED Trauma [id number] 0CD:127 Normal [facility] EMS Documentationon 01-18-20 EMS Documentation Normal [facility] Monitor Recordon 01-17-2023 Monitor Record [id number]. 00CD:127 Normal [facility] Retirement Recordson 01-17 Retirement Records [id number] 0CD:127 Normal [facility] PT & PTTon 01-17-2023 aPTT Coag (PPP) [Time] 39.0 second(s) High 25.1-36.5 [facility] Comment on above: Order Comment: patie nt in xray, waiting by room to collect as soon as they return. [id number] 01/17/2023 14:54:02 EDT Result Comment: Para meter [...] the same coagulation reagent and instrumentation as [facility]. Currently there are no coagulation studies available worldwide for children to 14 days, and no normal ranges. Heparin therapeutic range (represented by Anti-Factor Xa activity of 0.2 - 0.4 U/mL) corresponds to PTT of 56.6 - 109.0 sec. Performed By: #### 2 [id number], [id number], [id number], 7393688, [id number], [id number] ####[facility] [address] [place] [address] INR Coag (PPP) [Relative time] 1.4 {INR} Invalid Interpretation Code [facility] Comment on above: Order Comment: patie nt in xray, waiting by room to collect as soon as they return. [facility] 01/17/2023 14:54:02 EDT Result Comment: INR results are specifically intended to assess patients stabilized on long-term Anticoagulation therapy suggested INR?s ?Less Intensive Anticoagulation? 2.0 ? 3.0Conventional Range 3.0 ? 4.5 Performed By: #### 2 [id number], 3967452, [id number], 2470176, [id number], [id number] ####[facility] [address] [place] [address] PT Coag (PPP) [Time] 15.9 second(s) High 9.4-12.5 [facility] Comment on above: Order Comment: patie nt in xray, waiting by room to collect as soon as they return. [id number] 01/17/2023 14:54:02 EDT Result Comment: 15 d [...] the same coagulation reagent and instrumentation as [facility]. Currently there are no coagulation studies available worldwide for children to 14 days, and no normal ranges. Performed By: #### 2 [id number], 7889122, 69654488, 6683509, [id number], [id number] ####[facility] [address] [place] [address] Troponin 0 Hr.on 01-17-2023 Troponin I.cardiac [Mass/Vol] 5.80 pg/mL Low 15.90-38.40 [facility] Comment on above: Result Comment: The 95% CI (Confidence Interval) PPV (Positive Predictive Value) for myocardial infarction in females is 38 pg/mL, in males 51 pg/mL. The results should be used in conjunction with clinical conditions of myocardial infarction.([employer] High Sensitivity Troponin I Instructions For Use, [employer], May 2018) Performed By: #### 2 [id number], 2043747, 21423081, 3379245, 03968195, [id number] ####[facility] [address] [place] [address] Troponin 3 Hr.on 01-17-2023 Troponin I.cardiac [Mass/Vol] 6.90 pg/mL Low 15.90-38.40 [facility] Comment on above: Result Comment: The 95% CI (Confidence Interval) PPV (Positive Predictive Value) for myocardial infarction in females is 38 pg/mL, in males 51 pg/mL. The results should be used in conjunction with clinical conditions of myocardial infarction.([employer] High Sensitivity Troponin I Instructions For Use, [employer], May 2018) Performed By: #### 1 [id number] ####[facility] [address] [place] [address] Troponin 6 Hr.on 01-17-2023 Troponin I.cardiac [Mass/Vol] 6.50 pg/mL Low 15.90-38.40 [facility] Comment on above: Result Comment: The 95% CI (Confidence Interval) PPV (Positive Predictive Value) for myocardial infarction in females is 38 pg/mL, in males 51 pg/mL. The results should be used in conjunction with clinical conditions of myocardial infarction.([employer] High Sensitivity Troponin I Instructions For Use, [employer], May 2018) Performed By: #### 1 [id number] ####[facility] [address] [place] [address] XR Chest Single Viewon 01-17 XR Chest Single View Normal [facility] XR Pelvis 1 or 2 Viewson XR Pelvis 1 or 2 Views Normal Fi geeta [facility] eGFRon 01-17-2023 GFR/1.73 sq M.predicted among blacks MDRD (S/P/Bld) [Vol rate/Area] mL/min/{1.73_m2} Normal >=59 [facility] Comment on above: Order Comment: Order added by Discern Expert. Result Comment: eGFR is race adjusted. AA=. Performed By: #### 2 305616, 6590853, 61188070, 4354546, 30905231, 12007738 ####[facility] [address] [place] [address] GFR/1.73 sq M.predicted among non-blacks MDRD (S/P/Bld) [Vol rate/Area] 55 mL/min/1.73 m2 Low >=59 [facility] Comment on above: Order Comment: Order added by Discern Expert. Result Comment: Publishing Director lokesh kidney disease could be indicated at eGFR's of less than 60 mL/min/1.73m2. Kidney failure is indicated at less than 15 mL/min/1.73m2. Performed By: #### 2 797964, 3064616, 39364392, 1537059, 69585555, 42809261 ####[facility] [address] [place] [address] CBC AUTO DIFFon 01-15-2023 BASO # 0.0 103/ul Normal 0.0-0.1 [facility] Comment on above: Performed By: #### C BC ####[facility] [address] [place], [place] [address]Eo. Areli Yousif Basophils/100 WBC (Bld) 0.5 % Normal 0.2-2.0 [facility] Comment on above: Performed By: #### C BC ####[facility] [address] [place], [place] [address]Ct. Areli Yousif EO # 0.5 103/ul Normal 0.0-0.7 [facility] Comment on above: Performed By: #### C BC ####[facility] [address] [place] [id number]. Areli Yousif Eosinophils/100 WBC (Bld) 9.0 % Critically high 0.9-7.0 [facility] Comment on above: Performed By: #### C BC ####[facility] [address] [place] [id number]. Areli Yousif Erythrocyte distribution width (RBC) [Ratio] 13.9 % Normal 11.0-15.0 [facility] Comment on above: Performed By: #### C BC ####[facility] [address] [place] [id number]. Areli Yousif Hematocrit (Bld) [Volume fraction] 33.2 % Critically low 42.0-54.0 [facility] Comment on above: Performed By: #### C BC ####[facility] Y[address] [place], [place] [address]Dr. Areli Yousif Hemoglobin (Bld) [Mass/Vol] 10.3 g/dL Critically low 14.0-18.0 [facility] Comment on above: Performed By: #### C BC ####[facility] [address] [place], [place] [address]Dr. Areli Yousif IG # 0.01 10e3/ul Normal 0.00-0.03 [facility] Comment on above: Performed By: #### C BC ####[facility] [address] [place], [place] [address]Dr. Areli Yousif IG % 0.2 % Normal 0.0-0.5 [facility] Comment on above: Performed By: #### C BC ####[facility] [address] [place], [place] [address]Dr. Areli Yousif LYMPH # 2.3 103/ul Normal 1.2-3.8 [facility] Comment on above: Performed By: #### C BC ####[facility] E[address]th[address] [place], [place] [address]Dr. Areli Yousif Lymphocytes/100 WBC (Bld) 40.3 % Normal 20.5-60.0 [facility] Comment on above: Performed By: #### C BC ####[facility] [address] [place] [id number]. Areli Yousif MANUAL DIFF REQ NO Normal [facility] Comment on above: Performed By: #### C BC ####[facility] [address] [place] [id number]. Areli Yousif MCH (RBC) [Entitic mass] 28.1 pg Normal 25.9-34.0 [facility] Comment on above: Performed By: #### C BC ####[facility] [address] [place], [place] [address]Dr. Areli Yousif MCHC (RBC) [Mass/Vol] 31.0 g/dL Normal 29.9-35.2 [facility] Comment on above: Performed By: #### C BC ####[facility] [address] [place], [place] [address]Dr. Areli Yousif MCV (RBC) [Entitic vol] 90.7 fL Normal 80.0-94.0 [facility] Comment on above: Performed By: #### C BC ####[facility] [address] [place], [place] [address]Dr. Areli Yousif MONO # 0.4 103/ul Normal 0.3-0.8 [facility] Comment on above: Performed By: #### C BC ####[facility] [address] [place], [place] [address]Dr. Areli Benja Monocytes/100 WBC (Bld) 6.1 % Normal 1.7-12.0 [facility] Comment on above: Performed By: #### C BC ####[facility] [address] [place], [place] [address]Dr. Areli Yousif NEUT # 2.5 103/ul Normal 1.4-6.5 [facility] Comment on above: Performed By: #### C BC ####[facility] P[address]uj[address] [place], [place] [address]Dr. Areli Yousif Neutrophils/100 WBC (Bld) 43.9 % Normal 43.0-75.0 [facility] Comment on above: Performed By: #### C BC ####[facility] [address] [place], [place] [address]Jn. Areli Yousif Platelet mean volume (Bld) [Entitic vol] 10.4 fL Normal 9.5-13.5 [facility] Comment on above: Performed By: #### C BC ####[facility] [address] [place], [place] [address]Js. Areli Yousif PLT 212 103/ul Normal 150-450 [facility] Comment on above: Performed By: #### C BC ####[facility] [address] [place], [place] [address]Hm. Areli Yousif RBC 3.66 106/ul Critically low 4.70-6.10 The [facility] Comment on above: Performed By: #### C BC ####[facility] [address] [place], [place] [address]Xr. Areli Yousif WBC 5.8 103/ul Normal 4.0-11.0 [facility] Comment on above: Performed By: #### C BC ####[facility] [address] [place], [place] [address]Ku. Areli Yousif Covid-19 PCR ([facility])on 01-03 SARS-CoV-2 (COVID-19) RNA MANSI+probe Ql (Unsp spec) Not detected Normal NOT DETECTED [facility] Comment on above: Result Comment: When [...] for this test is supported by the Folder [employer] of Health and Human Service's declaration that [...] longer be used). Performed By: #### C VDTB ####[facility] Qztjfr[address]ltw[address] [place], [place] [address]Dr. Areli Yousif ECHO LIMITED STUDYon 023 ECHO LIMITED STUDY Normal [facility] ER URINE PROFILEon 3 Bilirubin Ql (U) Negative Normal NEGATIVE The [facility] Comment on above: Performed By: #### E RUR ####[facility] Steosve[address] [place], [place] [address]Dr. Areli Yousif Clarity (U) CLEAR Normal CLEAR [facility] Comment on above: Performed By: #### E RUR ####[facility] Byufmlyuda[address] [place], [place] [address]Dr. Areli Yousif Color (U) LT. YELLOW Normal YELLOW [facility] Comment on above: Performed By: #### E RUR ####[facility] Jfwidixrek[address] [place], [place] [address]Dr. Areli Yousif ERUAHD A micrscopic examination will be performed if indicated. Normal [facility] Comment on above: Performed By: #### E RUR ####[facility] R[address]uty[address] [place], [place] [address]Dr. Areli Yousif Glucose Ql (U) Negative Normal NEGATIVE The [facility] Comment on above: Performed By: #### E RUR ####[facility] D[address]fknlz[address] [place], [place] [address]Dr. Areli Yousif Hemoglobin Ql (U) Negative Normal NEGATIVE The [facility] Comment on above: Performed By: #### E RUR ####[facility] Yezoutjvds[address] [place], [place] [address]Dr. Areli Yousif Ketones Ql (U) Negative Normal NEGATIVE The [facility] Comment on above: Performed By: #### E RUR ####[facility] Lvsayoddsg[address] [place], [place] [address]Dr. Areli Yousif LEUKOCYTES Negative Normal NEGATIVE [facility] Comment on above: Performed By: #### E RUR ####[facility] [address] [place] [address]Dr. Areli Yousif Nitrite Ql (U) Negative Normal NEGATIVE [facility] Comment on above: Performed By: #### E RUR ####[facility] Fsbofmpcam[address] [place], [place] [address]Dr. Areli Yousif pH (U) 6.0 [pH] Normal 5-9 [facility] Comment on above: Performed By: #### E RUR ####[facility] [address] [place], [place] [address]DrDenae Yousif SPEC GRAVITY 1.010 Normal 1.005-<=1.02 5 [facility] Comment on above: Performed By: #### E RUR ####[facility] F[address]afws[address] [place], [place] [address]DrDenae Yousif UA PROTEIN TRACE Normal NEGATIVE/ TRACE [facility] Comment on above: Performed By: #### E RUR ####[facility] O[address] [place], [place] [address]DrDenae Yousif UR MICRO IND NOT INDICATED Normal [facility] Comment on above: Performed By: #### E RUR ####[facility] Oipzdrjzln[address] [place], [place] [address]Dr. Areli Yousif Urobilinogen Qn (U) 0.2 {Alyssia'U}/dL Normal 0.2 - 1. 0 [facility] Comment on above: Performed By: #### E RUR ####[facility] Giqoskxamz[address] [place], [place] [address]DrDenae Yousif POINT OF CARE GLUCOSEon 01-03 Glucose [Mass/Vol] 88 mg/dL Normal 74-106 [facility] Comment on above: Performed By: #### P OCGLUC ####[facility] Pffhluvjoi[address] [place], [place] [address]DrDenae Yousif PROF 14(COMP METB)on 023 Albumin [Mass/Vol] 2.8 g/dL Critically low 3.4-5.0 [facility] Comment on above: Performed By: #### C MP ####[facility] [address] [place] [address]Dr. Areli Yousif Albumin/Globulin [Mass ratio] 0.9 {ratio} Normal [facility] Comment on above: Performed By: #### C MP ####[facility] Ewthtsmhrk[address] [place], [place] [address]Dr. Areli Yousif ALP [Catalytic activity/Vol] 76 U/L Normal 46-116 [facility] Comment on above: Performed By: #### C MP ####[facility] Hefvzhlilx[address] [place], [place] [address]Dr. Areli Yousif ALT [Catalytic activity/Vol] 15 U/L Critically low 16-63 [facility] Comment on above: Performed By: #### C MP ####[facility] Rzwsbdyilh[address] [place], [place] [address]Dr. Areli Yousif Anion gap [Moles/Vol] 13.0 mmol/L Normal [facility] Comment on above: Performed By: #### C MP ####[facility] Yfcybhclfd[address] [place], [place] [address]Dr. Areli Yousif AST [Catalytic activity/Vol] 14 U/L Critically low 15-37 [facility] Comment on above: Performed By: #### C MP ####[facility] Nwfilbrayx[address] [place], [place] [address]Dr. Areli Yousif Bilirubin [Mass/Vol] 0.2 mg/dL Normal 0.2-1.0 [facility] Comment on above: Performed By: #### C MP ####[facility] Chipjabsdy[address] [place], [place] [address]Dr. Areli Yousif Calcium [Mass/Vol] 8.9 mg/dL Normal 8.5-10.1 [facility] Comment on above: Performed By: #### C MP ####[facility] Xfexjgqehz[address] [place], [place] [address]Dr. Areli Yousif Chloride [Moles/Vol] 106 mmol/L Normal 98-107 [facility] Comment on above: Performed By: #### C MP ####[facility] Gapfcldmxf[address] [place], [place] [address]Dr. Areli Yousif CO2 [Moles/Vol] 28.9 mmol/L Normal 21.0-32.0 [facility] Comment on above: Performed By: #### C MP ####[facility] [address] [place] [address]Dr. Areli Yousif Creatinine [Mass/Vol] 1.04 mg/dL Normal 0.70-1.30 [facility] Comment on above: Performed By: #### C MP ####[facility] [address] [place] [address]Dr. Areli Benja EGFR-AF [place] >60 Normal >=60 [facility] Comment on above: Performed By: #### C MP ####[facility] Kxuss[address]cym[address] [place], [place] [address]Dr. Areli Benja EGFR-NON AF [place] >60 Normal >=60 [facility] Comment on above: Performed By: #### C MP ####[facility] Xavemcziis[address] [place], [place] [address]Dr. Areli Benja Globulin (S) [Mass/Vol] 3.2 g/dL Normal [facility] Comment on above: Performed By: #### C MP ####[facility] R[address]orbdoihs[address] [place], [place] [address]Dr. Areli Benja Glucose [Mass/Vol] 118 mg/dL Critically high 74-106 [facility] Comment on above: Performed By: #### C MP ####[facility] Ayrlebpmve[address] [place], [place] [address]Dr. Areli Benja Potassium [Moles/Vol] 3.9 mmol/L Normal 3.5-5.1 [facility] Comment on above: Performed By: #### C MP ####[facility] Epphaipuee[address] [place], [place] [address]Dr. Areli Yousif Protein [Mass/Vol] 6.0 g/dL Critically low 6.4-8.2 Th [facility] Comment on above: Performed By: #### C MP ####[facility] Rqjtwkhips[address] [place], [place] [address]Dr. Tabbytulio Yousif Sodium [Moles/Vol] 144 mmol/L Normal 136-145 [facility] Comment on above: Performed By: #### C MP ####[facility] Etelpb[address]ull[address] [place], [place] [address]Dr. Areli Yousif Urea nitrogen [Mass/Vol] 32.0 mg/dL Critically high 7.0-18.0 [facility] Comment on above: Performed By: #### C MP ####[facility] Cvpinbnjli[address] [place], [place] [address]Dr. Areli Yousif Urea nitrogen/Creatinine [Mass ratio] 30.8 mg/mg Normal [facility] Comment on above: Performed By: #### C MP ####[facility] Gmfqpsigue[address] [place], [place] [address]Dr. Areli Yousif AMMONIAon 01-14-2023 Ammonia (P) [Moles/Vol] 17 umol/L Normal 11-32 [facility] Comment on above: Performed By: #### A MM ####[facility] Fivsbmshof[address] [place], [place] [address]Dr. Areli Yousif CBC AUTO DIFFon 01-14-2023 BASO # 0.0 103/ul Normal 0.0-0.1 [facility] Comment on above: Performed By: #### C BC ####[facility] Rsejfhpelg[address] [place], [place] [address]Dr. Areli Benja Basophils/100 WBC (Bld) 0.5 % Normal 0.2-2.0 [facility] Comment on above: Performed By: #### C BC ####[facility] Allevtvblt[address] [place], [place] [address]Dr. Areli Yousif EO # 0.6 103/ul Normal 0.0-0.7 [facility] Comment on above: Performed By: #### C BC ####[facility] Nxncnxkloz[address] [place], [place] [address]Dr. Areli Yousif Eosinophils/100 WBC (Bld) 9.3 % Critically high 0.9-7.0 [facility] Comment on above: Performed By: #### C BC ####[facility] [address]wfs[address] [place], [place] [address]Dr. Areli Yousif Erythrocyte distribution width (RBC) [Ratio] 14.1 % Normal 11.0-15.0 [facility] Comment on above: Performed By: #### C BC ####[facility] [address] [place] [address]Dr. Areli Yousif Hematocrit (Bld) [Volume fraction] 33.0 % Critically low 42.0-54.0 [facility] Comment on above: Performed By: #### C BC ####[facility] [address] [place] [address]Dr. Areli Yousif Hemoglobin (Bld) [Mass/Vol] 10.5 g/dL Critically low 14.0-18.0 [facility] Comment on above: Performed By: #### C BC ####[facility] Osvprkngxa[address] [place], [place] [address]Dr. Tabbytulio Benja IG # 0.01 10e3/ul Normal 0.00-0.03 [facility] Comment on above: Performed By: #### C BC ####[facility] Iupxatdqeu[address] [place], [place] [address]Dr. Areli Benja IG % 0.2 % Normal 0.0-0.5 [facility] Comment on above: Performed By: #### C BC ####[facility] Kjruduhslm[address] [place], [place] [address]Dr. Tabbytulio Benja LYMPH # 2.2 103/ul Normal 1.2-3.8 [facility] Comment on above: Performed By: #### C BC ####[facility] [address]ekv[address] [place], [place] [address]Dr. Tabbytulio Yousif Lymphocytes/100 WBC (Bld) 35.0 % Normal 20.5-60.0 [facility] Comment on above: Performed By: #### C BC ####[facility] Rgthhraiep[address] [place], [place] [address]Dr. Areli Yousif MANUAL DIFF REQ NO Normal [facility] Comment on above: Performed By: #### C BC ####[facility] Dhulxqhmke[address] [place], [place] [address]Dr. Yitulio Yousif MCH (RBC) [Entitic mass] 28.8 pg Normal 25.9-34.0 [facility] Comment on above: Performed By: #### C BC ####[facility] [address] [place] [address]Dr. Areli Yousif MCHC (RBC) [Mass/Vol] 31.8 g/dL Normal 29.9-35.2 [facility] Comment on above: Performed By: #### C BC ####[facility] Acrjqlhphe663105 [address] [place], [place] [address]Dr. Areli Yousif MCV (RBC) [Entitic vol] 90.4 fL Normal 80.0-94.0 The [facility] Comment on above: Performed By: #### C BC ####[facility] Ddtuus[address] [place], [place] [address]Dr. Areli Benja MONO # 0.5 103/ul Normal 0.3-0.8 [facility] Comment on above: Performed By: #### C BC ####[facility] Rjwe[address]wcp[address] [place], [place] [address]Dr. Areli Benja Monocytes/100 WBC (Bld) 7.1 % Normal 1.7-12.0 [facility] Comment on above: Performed By: #### C BC ####[facility] Bhigkdktoq[address] [place], [place] [address]Dr. Areli Yousif NEUT # 3.1 103/ul Normal 1.4-6.5 [facility] Comment on above: Performed By: #### C BC ####[facility] Kitqapipxd[address] [place], [place] [address]Dr. Areli Benja Neutrophils/100 WBC (Bld) 47.9 % Normal 43.0-75.0 [facility] Comment on above: Performed By: #### C BC ####[facility] Du[address] [place], [place] [address]Dr. Areli Yousif Platelet mean volume (Bld) [Entitic vol] 10.8 fL Normal 9.5-13.5 [facility] Comment on above: Performed By: #### C BC ####[facility] [address] [place] [id number]. Areli Yousif PLT 208 103/ul Normal 150-450 [facility] Comment on above: Performed By: #### C BC ####[facility] [address] [place] [id number]. Areli Yousif RBC 3.65 106/ul Critically low 4.70-6.10 The [facility] Comment on above: Performed By: #### C BC ####[facility] [address] [place] [id number]. Areli Yousif WBC 6.4 103/ul Normal 4.0-11.0 [facility] Comment on above: Performed By: #### C BC ####[facility] [address] [place] [address]Dr. Areli Yousif CT CSPINE WO CONon 3 CT CSPINE WO CON Normal The [facility] CT HEAD WO CONon 01-14-2023 CT HEAD WO CON Normal [facility] CT LSPINE WO CONon 3 CT LSPINE WO CON Normal The [facility] CT TSPINE WO CONon 3 CT TSPINE WO CON Normal The [facility] LACTATE/LACTIC ACIDon 2022 Lactate [Moles/Vol] 1.6 mmol/L Normal 0.4-2.0 [facility] Comment on above: Performed By: #### L ACT ####[facility] [address] [place] [address]Dr. Areli Yousif PH VENOUS BLOODon 01-14-2023 PCO2 VENOUS 44.9 mmHg Normal 40.0-52.0 [facility] Comment on above: Performed By: #### P HVEN ####[facility] [address] [place] [phone]. Areli Yousif pH VENOUS 7.407 Normal 7.330-7.430 [facility] Comment on above: Performed By: #### P HVEN ####[facility] [address] [place] [phone]. Areli Benja POINT OF CARE GLUCOSEon 04-1 2-2023 Glucose [Mass/Vol] 231 mg/dL Critically high 74-106 [facility] Comment on above: Performed By: #### P OCGLUC ####[facility] [address] [place] [address]Dr. Areli Yousif PROF 14(COMP METB)on 023 Albumin [Mass/Vol] 2.9 g/dL Critically low 3.4-5.[address] [facility] Comment on above: Performed By: #### T SH, CMP, HSTROPN ####[facility] Lrxsijiwwi[address] [place], [place] [address]Dr. Areli Yousif Albumin/Globulin [Mass ratio] 0.8 {ratio} Normal [facility] Comment on above: Performed By: #### T SH, CMP, HSTROPN ####[facility] Zoindxoaeh[address] [place], [place] [address]Dr. Areli Yousif ALP [Catalytic activity/Vol] 85 U/L Normal 46-116 [facility] Comment on above: Performed By: #### T SH, CMP, HSTROPN ####[facility] Mgkhhtusto[address] [place], [place] [address]Dr. Areli Yousif ALT [Catalytic activity/Vol] 16 U/L Normal 16-63 [facility] Comment on above: Performed By: #### T SH, CMP, HSTROPN ####[facility] [address] [place] [address]Dr. Areli Yousif Anion gap [Moles/Vol] 13.2 mmol/L Normal [facility] Comment on above: Performed By: #### T SH, CMP, HSTROPN ####[facility] Egnetuoukt[address] [place], [place] [address]Dr. Areli Yousif AST [Catalytic activity/Vol] 13 U/L Critically low 15-37 [facility] Comment on above: Performed By: #### T SH, CMP, HSTROPN ####[facility] [address] [place] [address]Dr. Areli Yousif Bilirubin [Mass/Vol] 0.2 mg/dL Normal 0.2-1.0 [facility] Comment on above: Performed By: #### T SH, CMP, HSTROPN ####[facility] [address] [place] [address]Dr. Areli Yousif Calcium [Mass/Vol] 9.0 mg/dL Normal 8.5-10.1 The [facility] Comment on above: Performed By: #### T SH, CMP, HSTROPN ####[facility] [address]ksfr[address] [place] [address]Dr. Areli Yousif Chloride [Moles/Vol] 104 mmol/L Normal 98-107 [facility] Comment on above: Performed By: #### T SH, CMP, HSTROPN ####[facility] Rh[address]degs[address] [place], [place] [address]Dr. Areli Yousif CO2 [Moles/Vol] 28.3 mmol/L Normal 21.0-32.0 The [facility] Comment on above: Performed By: #### T SH, CMP, HSTROPN ####[facility] T[address] [place], [place] [address]Dr. Areli Yousif Creatinine [Mass/Vol] 1.26 mg/dL Normal 0.70-1.30 [facility] Comment on above: Performed By: #### T SH, CMP, HSTROPN ####[facility] E[address]lyx[address] [place], [place] [address]Dr. Areli Yousif EGFR-AF MOSOTHO >60 Normal >=60 The [facility] Comment on above: Performed By: #### T SH, CMP, HSTROPN ####[facility] [address] [place] [address]Dr. Areli Yousif EGFR-NON AF MOSOTHO 57 mL/min/1.73m2 Critically low >=60 [facility] Comment on above: Performed By: #### T SH, CMP, HSTROPN ####[facility] [address] [place] [address]Dr. Areli Yousif Globulin (S) [Mass/Vol] 3.5 g/dL Normal [facility] Comment on above: Performed By: #### T SH, CMP, HSTROPN ####[facility] [address] [place] [address]Dr. Areli Yousif Glucose [Mass/Vol] 233 mg/dL Critically high 74-106 [facility] Comment on above: Performed By: #### T SH, CMP, HSTROPN ####[facility] [address] [place] [address]Dr. Areli Yousif Potassium [Moles/Vol] 4.5 mmol/L Normal 3.5-5.1 [facility] Comment on above: Performed By: #### T SH, CMP, HSTROPN ####[facility] [address] [place] [address]Dr. Areli Yousif Protein [Mass/Vol] 6.4 g/dL Normal 6.4-8.2 [facility] Comment on above: Performed By: #### T SH, CMP, HSTROPN ####[facility] [address] [place] [address]Dr. Areli Yousif Sodium [Moles/Vol] 141 mmol/L Normal 136-145 The [facility] Comment on above: Performed By: #### T SH, CMP, HSTROPN ####[facility] Xych[address]wsmy[address] [place], [place] [address]Dr. Areli Yousif Urea nitrogen [Mass/Vol] 40.0 mg/dL Critically high 7.0-18.0 [facility] Comment on above: Performed By: #### T SH, CMP, HSTROPN ####[facility] [address] [place] [address]Dr. Areli Yousif Urea nitrogen/Creatinine [Mass ratio] 31.7 mg/mg Normal [facility] Comment on above: Performed By: #### T SH, CMP, HSTROPN ####[facility] Uxdwk[address] [place], [place] [address]Dr. Areli Yousif PROTIMEon 01-14-2023 INR Coag (PPP) [Relative time] 1.01 {INR} Normal [facility] Comment on above: Performed By: #### P TT, PT ####[facility] [address] [place] [address]Dr. Areli Yousif INR GUIDELINES SEE BELOW Normal [facility] Comment on above: Result Comment: LANDON RED INR: 2.0 - 3.0 CONDITIONS NOT LISTED BELOW 2.5 - 3.5 FOR PROSTHETIC HEART VALVE REPLACEMENT 2.5 - 3.5 RECURRENT THROMBOSIS Performed By: #### P TT, PT ####[facility] [address] [place] [address]Dr. Areli Yousif PT Coag (PPP) [Time] 10.7 s Normal 9.0-11.6 [facility] Comment on above: Performed By: #### P TT, PT ####[facility] [address] [place] [address]Dr. Areli Yousif PTTon 01-14-2023 aPTT Coag (Bld) [Time] 29.4 s Normal 22.3-36.[address] [facility] Comment on above: Performed By: #### P TT, PT ####[facility] Fx[address] [place], [place] [address]Dr. Areli Yousif TROPONIN, HIGH SENSITIVITYon 01-14-2023 HSTROP 7.6 pg/mL Normal 4.0-76.1 [facility] Comment on above: Result Comment: CUT- OFF POINTS HAVE BEEN ESTABLISHED BASED ON THE FOURTH UNIVERSAL DEFINITIONS OF MYOCARDIALINFARCTION. THE UPPER REFERENCE LIMIT (URL) OF TROPONIN, DEFINED THE 99TH PERCENTILE OFcTnI DISTRIBUTION IN A REFERENCE POPULATION, HAS BEEN CONFIRMED THE DECISION THRESHOLDFOR [place] DIAGNOSIS. Performed By: #### T SH, CMP, HSTROPN ####[facility] [address] [place] [address]Dr. Areli Yousif TSHon 01-14-2023 TSH 2.590 uIU/mL Normal 0.358-3.740 [facility] Comment on above: Performed By: #### T SH, CMP, HSTROPN ####[facility] [address] [place] [address]Dr. Areli Yousif XR CHEST 1 Von 01-14-2023 XR CHEST 1 V Normal [facility] XR KNEE RT 4V or >on 023 XR KNEE RT 4V or > Normal The [facility] XR PELVIS 1_2 VIEWSon 2022 XR PELVIS 1_2 VIEWS Normal The [facility] Coding Summary.on 01-13-2023 Coding Summary. Normal [facility] Consent for Treatmenton 12-05 Consent for Treatment [id number]#[id number] 0CD:127 Normal [facility] Heart and Vascular Office/Cl inic Noteon 01-01-2023 Heart and Vascular Office/Clinic Note Normal [facility] Comment on above: Result Comment: Elec tronically Signed By: Bushra JIMENEZ CNP\.br\Date and Time Signed: 01/01/23 09:43 EDT Progress Note-Nurseon 2022 Progress Note-Nurse [id number]#1. 00CD:127 Normal [facility] Progress Note-Nurse [id number]#1. 00CD:127 Normal [facility] Coding Summary.on 12-29-2022 Coding Summary. Normal [facility] CHEMISTRYOrdered By: Lab ROP User on 12-25-2022 Glucose [Mass/Vol] 214 mg/dL High 55 - 99 mg/dL [facility] POC Subsection Comment on above: Result Comment: Clemente christopher RN/ POC Device SN [id number] Invalid Interpretation Code [facility] POC Subsection POC User ID [id number] Invalid Interpretation Code [facility] POC Subsection POC Username MARCY BAILEY Invalid Interpretation Code [facility] POC Subsection Glucose [Mass/Vol] 140 mg/dL High 55 - 99 mg/dL [facility] POC Subsection Comment on above: Result Comment: Clemente christopher RN/ POC Device SN [id number] Invalid Interpretation Code [facility] POC Subsection POC User ID [id number] Invalid Interpretation Code [facility] POC Subsection POC Username WEI DOBSON Invalid Interpretation Code [facility] POC Subsection CHEMISTRYOrdered By: SYSTEM SYSTEM on 12-25-2022 Cobalamin (Vitamin B12) [Mass/Vol] 272 pg/mL Normal 50 - 1500 pg/mL [facility] Remisol Ferritin [Mass/Vol] 145 ng/mL Normal 24 [...] Low 200 - 370 mg/dL [facility] Remisol HEMATOLOGYOrdered By: Gabe Hunter on 12-25-2022 Reticulocytes/100 RBC (Bld) 1.3 % Normal 0.5 - 1.5 % [facility] HemeAutoSS CHEMISTRYOrdered By: Lab ROP User on 12-24-2022 Glucose [Mass/Vol] 202 mg/dL High 55 - 99 mg/dL [facility] POC Subsection POC Device SN [id number] Invalid Interpretation Code [facility] POC Subsection POC User ID [id number] Invalid Interpretation Code [facility] POC Subsection POC Username SIR BENIGNO PATINO Invalid Interpretation Code [facility] POC Subsection CHEMISTRYOrdered By: SYSTEM SYSTEM on 12-24-2022 Anion gap [Moles/Vol] 14 mmol/L Normal 6 - 16 mEq/L F [facility] Remisol Chloride [Moles/Vol] 106 mmol/L Normal 101 - 1 11 mmol/L [facility] Remisol CO2 [Moles/Vol] 24 mmol/L Normal 21 - 31 mmol/L [facility] Remisol Potassium [Moles/Vol] 4.8 mmol/L Normal 3.5 - 5.3 mmol/L [facility] Remisol Sodium [Moles/Vol] 139 mmol/L Normal 135 - 145 mmol/L [facility] Remisol CHEMISTRYOrdered By: SYSTEM SYSTEM on 12-22-2022 Anion [...] .73 m2 FT Chem S Glucose [Mass/Vol] 151 mg/dL Normal 55 - 199 mg/dL [facility] Remisol Magnesium [Mass/Vol] 1.6 mg/dL Normal 1.3 - 2 .4 mg/dL [facility] Remisol Potassium [Moles/Vol] 3.9 mmol/L Normal 3.5 - 5.3 mmol/L [facility] Remisol Sodium [Moles/Vol] 138 mmol/L Normal 135 - 145 mmol/L [facility] Remisol Urea nitrogen [Mass/Vol] 25 mg/dL High 5 - 21 mg/dL [facility] Remisol Urea nitrogen/Creatinine [Mass ratio] 23 mg/mg High 10 - 20 [facility] Remisol CHEMISTRYOrdered By: Susie ga on 12-22-2022 HbA1c (Bld) [Mass fraction] 8.0 % High <=5.9% [facility] ChemAutoSS HEMATOLOGYOrdered By: SYSTEM SYSTEM on 12-22-2022 Basophils/100 [...] 3.9 E9/L Normal 1.0 - 4.0 E9/L [facility] HemeAutoSS Monocytes/100 WBC (Bld) 6.0 % Normal 4.0 - 14.0 % [facility] HemeAutoSS Monocytes/Leukocytes Auto (Bld) [Pure # fraction] 0.5 E9/L Normal 0.2 - 1.0 E9/L [facility] HemeAutoSS Neutrophils/100 WBC (Bld) 47.0 % Normal 36.0 - 75.0 % [facility] HemeAutoSS Neutrophils/Leukocytes Auto (Bld) [Pure # fraction] 4.2 E9/L Normal 2.0 - 7.5 E9/L [facility] HemeAutoSS HEMATOLOGYOrdered By: Sheba Olivarez on 12-22-2022 Erythrocyte distribution width (RBC) [Ratio] 14.5 % High 10.9 - 14.2 % [facility] HemeAutoSS Hematocrit (Bld) [Volume fraction] 32.7 % Low 37.7 - 49.0 % [facility] HemeAutoSS Hemoglobin (Bld) [Mass/Vol] 10.7 g/dL Low 13.5 - 17.5 gm/dL [facility] HemeAutoSS MCH (RBC) [Entitic mass] 28.7 pg Normal 27.0 - 34.0 pg [facility] HemeAutoSS MCHC (RBC) [Mass/Vol] 32.7 g/dL Normal 31.4 - 36.0 gm/dL [facility] HemeAutoSS MCV (RBC) [Entitic vol] 87.7 fL Normal 80.0 - 100.0 fL [facility] HemeAutoSS Platelet mean volume (Bld) [Entitic vol] 8.4 fL Normal 6.4 - 10.8 fL [facility] HemeAutoSS Platelets (Bld) [#/Vol] 324.0 E9/L Normal 150.0 - 500.0 E9/L [facility] HemeAutoSS RBC (Bld) [#/Vol] 3.7 E12/L Low 4.3 - 5.9 E12/L [facility] HemeAutoSS WBC corrected for nucl RBC Auto (Bld) [#/Vol] 8.9 E9/L Normal 4.0 - 11.0 E9/L [facility] HemeAutoSS BLOOD BANKOrdered By: Brianna Londono on 12-21-2022 ABO/Rh Retype Interp Negative Invalid Interpretation Code [facility] BB Subsection CHEMISTRYOrdered By: SYSTEM SYSTEM on 12-21-2022 Anion gap [Moles/Vol] 9 mmol/L Normal 6 - 16 mEq/L [facility] Remisol Calcium [Mass/Vol] 8.6 mg/dL Low 8.9 - 11. 1 mg/dL [facility] Remisol Chloride [Moles/Vol] 105 mmol/L Normal 101 - 1 11 mmol/L [facility] Remisol CO2 [Moles/Vol] 30 mmol/L Normal 21 - 31 mmol/L [facility] Creatinine [Mass/Vol] 1.0 mg/dL Normal 0.5 - 1.3 mg/dL [facility] Remisol GFR/1.73 sq M.predicted among blacks MDRD (S/P/Bld) [Vol rate/Area] mL/min/1.73 m2 Normal >=59mL/min/1 .73 m2 [facility] Chem S GFR/1.73 sq M.predicted among non-blacks MDRD (S/P/Bld) [Vol rate/Area] mL/min/1.73 m2 Normal >=59mL/min/1 .73 m2 [facility] Chem S Glucose [Mass/Vol] 127 mg/dL Normal 55 - 199 mg/dL [facility] Remisol Potassium [Moles/Vol] 3.7 mmol/L Normal 3.5 - 5.3 mmol/L [facility] Remisol Sodium [Moles/Vol] 140 mmol/L Normal 135 - 145 mmol/L [facility] Remisol Troponin I.cardiac [Mass/Vol] 13.40 pg/mL Low [...] Screen method >1000 ng/mL Ql (U) Negative (3/19/23 1:07 AM) Normal Negative [facility] Remisol Barbiturates [...] (12/21/22 1:07 AM) Normal Negative [facility] Remisol HEMATOLOGYOrdered By: SYSTEM SYSTEM on 12-21-2022 Basophils/100 [...] % [facility] HemeAutoSS Hematocrit (Bld) [Volume fraction] 33.5 % Low 37.7 - 49.0 % [facility] HemeAutoSS Hemoglobin (Bld) [Mass/Vol] 10.9 g/dL Low 13.5 - 17.5 gm/dL [facility] HemeAutoSS MCH (RBC) [Entitic mass] 28.4 pg Normal 27.0 - 34.0 pg [facility] HemeAutoSS MCHC (RBC) [Mass/Vol] 32.5 g/dL Normal 31.4 - 36.0 gm/dL [facility] HemeAutoSS MCV (RBC) [Entitic vol] 87.3 fL Normal 80.0 - 100.0 fL [facility] HemeAutoSS Platelet mean volume (Bld) [Entitic vol] 8.7 fL Normal 6.4 - 10.8 fL [facility] HemeAutoSS Platelets (Bld) [#/Vol] 355.0 E9/L Normal 150.0 - 500.0 E9/L [facility] HemeAutoSS RBC (Bld) [#/Vol] 3.8 E12/L Low 4.3 - 5.9 E12/L [facility] HemeAutoSS WBC corrected for nucl RBC Auto (Bld) [#/Vol] 11.3 E9/L High 4.0 - 11.0 E9/L [facility] HemeAutoSS URINALYSISOrdered By: Edilia Aquino on 12-21-2022 Bilirubin Ql (U) Negative (12/21/22 1:07 AM) Normal Negative [facility] UA Auto SS Clarity (U) Clear (12/21/22 1:07 AM) Normal Clear [facility] UA Auto SS Color (U) Yellow (12/21/22 1:07 AM) Normal Yellow [facility] UA Auto SS Epithelial cells.squamous LM.HPF (Urine sed) [#/Area] 0-2 /HPF Normal 0-2/HPF [facility] UA Aut o SS Glucose Test strip (U) [Mass/Vol] Negative (12/21/22 1:07 AM) Normal Negative [facility] UA Auto SS Hemoglobin Ql (U) Negative (12/21/22 1:07 AM) Normal Negative [facility] UA Auto SS Ketones (U) [Mass/Vol] Negative (12/21/22 1:07 AM) Normal Negative [facility] UA Auto SS [place].plasma/[place] .RBC (Bld) [Mass ratio] 0-3 /HPF Normal 0-3/HPF [facility] UA Auto SS Nitrite Ql (U) Negative (12/21/22 1:07 AM) Normal Negative [facility] UA Auto SS pH (U) 6.5 *NA* (12/21/22 1:07 AM) Invalid Interpretation Code 5.0 - 9.0 [facility] UA Auto SS Protein (U) [Mass/Vol] Negative (12/21/22 1:07 AM) Normal Negative [facility] UA Auto SS Specific gravity (U) [Rel density] 1.015 *NA* (12/21/22 1:07 AM) Invalid Interpretation Code 1.005 - 1.030 [facility] UA Auto SS UA Spec Desc Clean Catch (12/21/22 1:07 AM) Normal [facility] UA Auto SS Urobilinogen Qn (U) 0.8082354 {Alyssia'U}/dL Normal 0.0 - 1.0 EU/dL [facility] UA Auto SS WBC Auto Ql (U) Negative (12/21/22 1:07 AM) Normal Negative [facility] UA Auto SS WBC LM.HPF (Urine sed) [#/Area] 0-5 /HPF Normal 0-5/HPF [facility] UA Auto SS BLOOD BANKOrdered By: Alliso n Kenia on 12-20-2022 ABO/Rh Interp Negative Invalid Interpretation Code FT BB Subsection ABSC Gel Interp Negative (12/20/22 11:19 PM) Normal [facility] BB Subsection CHEMISTRYOrdered By: SYSTEM SYSTEM on [...] [facility] Remisol Ethanol [Mass/Vol] mg/dL Normal <=7mg/dL [facility] R emisol GFR/1.73 sq M.predicted among blacks MDRD (S/P/Bld) [Vol rate/Area] mL/min/1.73 m2 Normal >=59mL/min/1 .73 m2 [facility] Chem S GFR/1.73 sq M.predicted among non-blacks MDRD (S/P/Bld) [Vol rate/Area] 60 mL/min/1.73 m2 Normal >=59mL/min/1 .73 m2 [facility] Chem S Globulin (S) [Mass/Vol] 3.2 g/dL Normal 1.4 - 4.0 gm/dL [facility] Remisol Glucose [Mass/Vol] 221 mg/dL High 55 - 199 mg/dL [facility] Lactate [Mass/Vol] 2.0 mmol/L Normal 0.5 - 2.2 mmol/L [facility] Lipase [Catalytic activity/Vol] 34 U/L Normal 13 - 58 unit/L [facility] Protein [Mass/Vol] 6.3 g/dL Normal 6.0 - 7.8 gm/dL [facility] Remisol Troponin I.cardiac [Mass/Vol] 10.20 pg/mL Low 15.90 - 38.40 pg/mL [facility] Remisol Urea nitrogen [Mass/Vol] 39 mg/dL High 5 - 21 mg/dL [facility] Remisol Urea nitrogen/Creatinine [Mass ratio] 32 mg/mg High 10 - 20 [facility] Remisol COAGULATIONOrdered By: Nusrat Aquino on 12-20-2022 aPTT Coag (PPP) [Time] 31.7 [...] 34.2 % Low 37.7 - 49.0 % [facility] HemeAutoSS Hemoglobin (Bld) [Mass/Vol] 11.0 g/dL Low 13.5 - 17.5 gm/dL [facility] HemeAutoSS MCH (RBC) [Entitic mass] 28.1 pg Normal 27.0 - 34.0 pg [facility] HemeAutoSS MCHC (RBC) [Mass/Vol] 32.2 g/dL Normal 31.4 - 36.0 gm/dL [facility] HemeAutoSS MCV (RBC) [Entitic vol] 87.5 fL Normal 80.0 - 100.0 fL [facility]eAutoSS Platelet mean volume (Bld) [Entitic vol] 8.6 fL Normal 6.4 - 10.8 fL [facility] HemeAutoSS Platelets (Bld) [#/Vol] 373.0 E9/L Normal 150.0 - 500.0 E9/L [facility] HemeAutoSS RBC (Bld) [#/Vol] 3.9 E12/L Low 4.3 - 5.9 E12/L [facility] HemeAutoSS WBC corrected for nucl RBC Auto (Bld) [#/Vol] 10.0 E9/L Normal 4.0 - 11.0 E9/L [facility] HemeAutoSS BNPon 12-17-2022 Natriuretic peptide B (Bld) [Mass/Vol] 867.0 pg/mL Normal <=900.0 [facility] Comment on above: Performed By: #### C MADM, CMP, BNP ####[facility] [address] [place] [address]Dr. Areli Yousif CARDIAC ASHLEY ADMITon 023 CK [Catalytic activity/Vol] 18 U/L Critically low 39-308 [facility] Comment on above: Performed By: #### C MADM, CMP, BNP ####[facility] [address] [place] [id number]. Areli Yousif CK.MB [Mass/Vol] 0.70 ng/mL Normal <=3.60 The [facility] Comment on above: Performed By: #### C MADM, CMP, BNP ####[facility] [address] [place] [id number]. Areli Yousif HSTROP 6.5 pg/mL Normal 4.0-76.1 [facility] Comment on above: Result Comment: CUT- OFF POINTS HAVE BEEN ESTABLISHED BASED ON THE FOURTH UNIVERSAL DEFINITIONS OF MYOCARDIALINFARCTION. THE UPPER REFERENCE LIMIT (URL) OF TROPONIN, DEFINED THE 99TH PERCENTILE OFcTnI DISTRIBUTION IN A REFERENCE POPULATION, HAS BEEN CONFIRMED THE DECISION THRESHOLDFOR [place] DIAGNOSIS. Performed By: #### C MADM, CMP, BNP ####[facility] [address] [place] [address]Dr. Areli Yousif LAWRENCE 41 ng/mL Normal 16-96 [facility] Comment on above: Performed By: #### C MADM, CMP, BNP ####[facility] X[address] [place] [address]Dr. Areli Yousif CBC AUTO DIFFon 12-17-2022 BASO # 0.0 103/ul Normal 0.0-0.1 [facility] Comment on above: Performed By: #### C BC ####[facility] [address] [place], [place] [address]Dr. Areli Yousif Basophils/100 WBC (Bld) 0.3 % Normal 0.2-2.0 [facility] Comment on above: Performed By: #### C BC ####[facility] [address] [place], [place] [address]Dr. Areli Yousif EO # 0.1 103/ul Normal 0.0-0.7 [facility] Comment on above: Performed By: #### C BC ####[facility] [address] [place], [place] [address]Dr. Areli Yousif Eosinophils/100 WBC (Bld) 1.1 % Normal 0.9-7.0 [facility] Comment on above: Performed By: #### C BC ####[facility] [address] [place], [place] [address]Dr. Areli Yousif Erythrocyte distribution width (RBC) [Ratio] 12.9 % Normal 11.0-15.0 [facility] Comment on above: Performed By: #### C BC ####[facility] [address] [place], [place] [address]Dr. Areli Yousif Hematocrit (Bld) [Volume fraction] 35.9 % Critically low 42.0-54.0 [facility] Comment on above: Performed By: #### C BC ####[facility] [address] [place] [address]Dr. Areli Yousif Hemoglobin (Bld) [Mass/Vol] 11.2 g/dL Critically low 14.0-18.0 [facility] Comment on above: Performed By: #### C BC ####[facility] [address] [place] [address]Dr. Areli Yousif IG # 0.03 10e3/ul Normal 0.00-0.03 [facility] Comment on above: Performed By: #### C BC ####[facility] Unjqrxcnqx9[address] [place], [place] [address]Dr. Tabbytulio Yousif IG % 0.4 % Normal 0.0-0.5 [facility] Comment on above: Performed By: #### C BC ####[facility] Grjvohokxw[address] [place], [place] [address]Dr. Areli Yousif LYMPH # 1.1 103/ul Critically low 1.2-3.8 [facility] Comment on above: Performed By: #### C BC ####[facility] Zibtvekjob08[address] [place], [place] [address]Dr. Areli Benja Lymphocytes/100 WBC (Bld) 14.5 % Critically low 20.5-60.0 [facility] Comment on above: Performed By: #### C BC ####[facility] Xwiuopgczx[address] [place], [place] [address]Dr. Areli Yousif MANUAL DIFF REQ NO Normal [facility] Comment on above: Performed By: #### C BC ####[facility] Cpuvujyxih599[address] [place], [place] [address]Dr. Areli Yousif MCH (RBC) [Entitic mass] 28.2 pg Normal 25.9-34.0 [facility] Comment on above: Performed By: #### C BC ####[facility] Kfkdiczegj[address] [place], [place] [address]Dr. Areli Yousif MCHC (RBC) [Mass/Vol] 31.2 g/dL Normal 29.9-35.2 [facility] Comment on above: Performed By: #### C BC ####[facility] Qfqomwknxs7[address] [place] [id number]. Areli Yousif MCV (RBC) [Entitic vol] 90.4 fL Normal 80.0-94.0 [facility] Comment on above: Performed By: #### C BC ####[facility] Gemblxnuia[address] [place] [id number] Areli Yousif MONO # 0.1 103/ul Critically low 0.3-0.8 The [facility] Comment on above: Performed By: #### C BC ####[facility] Csgxqvcobp1568 [place] [id number]. Areli Benja Monocytes/100 WBC (Bld) 1.6 % Critically low 1.7-12.0 [facility] Comment on above: Performed By: #### C BC ####[facility] Sobcljurgn[address] [place], [place] [address]Dr. Areli Yousif NEUT # 6.0 103/ul Normal 1.4-6.5 [facility] Comment on above: Performed By: #### C BC ####[facility] Lgyhuoqazl[address] [place], [place] [address]Dr. Areli Benja Neutrophils/100 WBC (Bld) 82.1 % Critically high 43.0-75.0 [facility] Comment on above: Performed By: #### C BC ####[facility] Tluknbvlqc[address] [place], [place] [address]Dr. Areli Benja Platelet mean volume (Bld) [Entitic vol] 10.1 fL Normal 9.5-13.5 The [facility] Comment on above: Performed By: #### C BC ####[facility] Grdevwolcg0[address] [place], [place] [address]Dr. Areli Yousif PLT 370 103/ul Normal 150-450 [facility] Comment on above: Performed By: #### C BC ####[facility] Pyoafkrhwo65[address] [place] [id number]. Areli Yousif RBC 3.97 106/ul Critically low 4.70-6.10 The [facility] Comment on above: Performed By: #### C BC ####[facility] Iqzwjvuxmd9688 [place] [id number]. Areli Yousif WBC 7.3 103/ul Normal 4.0-11.0 [facility] Comment on above: Performed By: #### C BC ####[facility] Brjvkaqjif24[address] [place] [id number]. Tabbytulio Yousif CT CSPINE WO CONon 3 CT CSPINE WO CON Normal The [facility] CT STROKE HEAD WOon 12-18-19 CT STROKE HEAD WO Normal The [facility] CTA NECK WO W CONon 12-18-19 CTA NECK WO W CON Normal The [facility] DRUG SCREEN RAPID (URINE)on 12-17-2022 AMP Negative Normal NEGATIVE The [facility] Comment on above: Performed By: #### E RUR, DRUGRPD ####[facility] [address]ersaafv[address] [place] [address]Dr. Areli Yousif BAR Negative Normal NEGATIVE The [facility] Comment on above: Performed By: #### E RUR, DRUGRPD ####[facility] Muacgdszen[address] [place] [address]Dr. Areli Yousif BUP Negative Normal NEGATIVE The [facility] Comment on above: Performed By: #### E RUR, DRUGRPD ####[facility] Inxvnrokna[address] [place] [address]Dr. Areli Yousif BZO Negative Normal NEGATIVE The [facility] Comment on above: Performed By: #### E RUR, DRUGRPD ####[facility] Hulwoynvph2936 [place] [id number]. Areli Yousif KAMALJIT Negative Normal NEGATIVE The [facility] Comment on above: Performed By: #### E RUR, DRUGRPD ####[facility] Stisudpmic[address] [place] [address]Dr. Areli Yousif CUT-OFFS SEE BELOW Normal The [facility] Comment on above: Result Comment: AMP (Amphetamine): 500ng/mL, BAR (Barbituates): 200 ng/mL, BZO (Benzodiazepines): 150 ng/mL, BUP (Buprenorphine): 10 ng/mL, KAMALJIT (Cocaine): 150 ng/mL, mAMP (Methamphetamine): 500 ng/mL, MTD (Methadone): 200 ng/mL, OPI (Opiates): 100 ng/mL, OXY (Oxycodone): 100 ng/mL, PCP (Phencyclidine): 25 ng/mL, PPX (Propoxyphene): 300 ng/mL, THC (Cannabinoids): 50 ng/mL, TCA (Trycyclic Antidepressants): 300 ng/mL Performed By: #### E RUR, DRUGRPD ####[facility] Inbkbzvrvw[address] [place], [place] [address]Dr. [facility] DRUG CUT HEADER DRUG CLASS TEST SYST EM CUT-OFF CONCENTRATIONS ARE FOLLOWS: Normal The [facility] Comment on above: Performed By: #### E RUR, DRUGRPD ####[facility] Qkkbfyiofe[address] [place], [place] [address]Dr. Areli Yousif mAMP Negative Normal NEGATIVE The [facility] Comment on above: Performed By: #### E RUR, DRUGRPD ####[facility] Savnuwucuj[address] [place], [place] [address]Dr. Areli [facility] MTD Negative Normal NEGATIVE The [facility] Comment on above: Performed By: #### E RUR, DRUGRPD ####[facility] Jlkxbmqmiq4[address] [place], [place] [address]Dr. Areli [facility] OPI Negative Normal NEGATIVE The [facility] Comment on above: Performed By: #### E RUR, DRUGRPD ####[facility] Ipcbizxupv018[address] [place], [place] [address]Dr. Areli [facility] OXY Negative Normal NEGATIVE The [facility] Comment on above: Performed By: #### E RUR, DRUGRPD ####[facility] Fklrbxtvjw7407[address] [place], [place] [address]Dr. tulio [facility] PCP Negative Normal NEGATIVE The [facility] Comment on above: Performed By: #### E RUR, DRUGRPD ####[facility] Sycfftidfh[address] [place], [place] [address]Dr. Areli [facility] PPX Negative Normal NEGATIVE [facility] Comment on above: Performed By: #### Sid BARKER DRUGRPD ####[facility] Dpukmkokgw604[address] [place], [place] [address]Dr. Areli Yousif TCA Negative Normal NEGATIVE [facility] Comment on above: Performed By: #### Sid BARKER DRUGRPD ####[facility] Vptwftulxd154[address] [place], [place] [address]Dr. Areli Yousif THC Negative Normal NEGATIVE [facility] Comment on above: Performed By: #### Sid BARKER DRUGRPD ####[facility] Ckzyzdttxt14[address] [place], [place] [address]Dr. Areli Yousif ER URINE PROFILEon 3 Bilirubin Ql (U) Negative Normal NEGATIVE [facility] Comment on above: Performed By: #### Sid BARKER DRUGRPD ####[facility] Tcibkaoseh[address] [place], [place] [address]Dr. Areli Yousif Clarity (U) CLEAR Normal CLEAR [facility] Comment on above: Performed By: #### Sid BARKER DRUGRPD ####[facility] Lcfeosovco8[address] [place], [place] [address]Dr. Areli Yousif Color (U) LT. YELLOW Normal YELLOW The [facility] Comment on above: Performed By: #### Sid BARKER DRUGRPD ####[facility] Dmqqyhvmbk[address] [place], [place] [address]Dr. Tabbytulio Yousif ERUAHD A micrscopic examination will be performed if indicated. Normal The [facility] Comment on above: Performed By: #### Sid BARKER DRUGRPD ####[facility] Iwhacemihj[address] [place], [place] [address]Dr. Tabbytulio Benja Glucose Ql (U) 250 mg/dl Abnormal NEGATIVE The [facility] Comment on above: Performed By: #### Sid BARKER DRUGRPD ####[facility] Hrfdnkisya[address] [place], [place] [address]Dr. Tabbytulio Yousif Hemoglobin Ql (U) Negative Normal NEGATIVE The [facility] Comment on above: Performed By: #### Sid BARKER DRUGRPD ####[facility] Obrzakiexz[address] [place], [place] [address]Dr. Areli Yousif Ketones Ql (U) Negative Normal NEGATIVE The [facility] Comment on above: Performed By: #### Sid RUJosé Miguel DRUGRPD ####[facility] [address]awhufope[address] [place] [address]Dr. Areli Yousif LEUKOCYTES Negative Normal NEGATIVE The [facility] Comment on above: Performed By: #### Sid RUJosé Miguel DRUGRPD ####[facility] Iydloqjkne50[address] [place] [address]Dr. Areli Yousif Nitrite Ql (U) Negative Normal NEGATIVE The [facility] Comment on above: Performed By: #### Sid BARKER DRUGRPD ####[facility] Gocagjgkfl[address] [place] [address]Dr. Areli Yousif pH (U) 6.5 [pH] Normal 5-9 [facility] Comment on above: Performed By: #### Sid BARKER DRUGRPD ####[facility] Wfmmhnauit[address] [place] [address]Dr. Areli Yousif SPEC GRAVITY 1.010 Normal 1.005-<=1.02 5 [facility] Comment on above: Performed By: #### Sid BARKER DRUGRPD ####[facility] Wktkzchgta[address] [place], [place] [address]Dr. Areli Yousif UA PROTEIN Negative Normal NEGATIVE/ TRACE The [facility] Comment on above: Performed By: #### Sid BARKER DRUGRPD ####[facility] Kkqlyvxqvr5583 [place] [address]Dr. Areli Yousif UR MICRO IND NOT INDICATED Normal The [facility] Comment on above: Performed By: #### Sid RUJosé Miguel DRUGRPD ####[facility] Vjsrbotjfj4[address] [place] [address]Dr. Areli Yousif Urobilinogen Qn (U) 0.2 {Alyssia'U}/dL Normal 0.2 - 1. 0 [facility] Comment on above: Performed By: #### Sid RUJosé Miguel, DRUGRPD ####[facility] Ixcrsqqhba68[address] [place] [address]Dr. Areli Yousif POINT OF CARE GLUCOSEon 03-1 5-2023 Glucose [Mass/Vol] 266 mg/dL Critically high 74-106 T [facility] Comment on above: Performed By: #### P OCGLUC ####[facility] Hlwdwcagee[address] [place] [address]Dr. Areli Yousif POTASSIUMon 12-17-2022 Potassium [Moles/Vol] 5.3 mmol/L Critically high 3.5-5.1 [facility] Comment on above: Performed By: #### K ####[facility] Hutebykuvd[address] [place] [address]Dr. Areli Yousif PROF 14(COMP METB)on 023 Albumin [Mass/Vol] 3.0 g/dL Critically low 3.4-5.[address] [facility] Comment on above: Performed By: #### C MADM, CMP, BNP ####[facility] Sdtvsytvsv8[address] [place] [address]Dr. Areli Yousif Albumin/Globulin [Mass ratio] 0.8 {ratio} Normal [facility] Comment on above: Performed By: #### C MADM, CMP, BNP ####[facility] Vcnqpnuveg24[address] [place] [address]Dr. Areli Yousif ALP [Catalytic activity/Vol] 94 U/L Normal 46-116 [facility] Comment on above: Performed By: #### C MADM, CMP, BNP ####[facility] Bfzolvilwl1848 [place] [address]Dr. Areli Yousif ALT [Catalytic activity/Vol] 27 U/L Normal 16-63 [facility] Comment on above: Performed By: #### C MADM, CMP, BNP ####[facility] Dvhaftuyqp9586 [place] [address]Dr. Areli Yousif Anion gap [Moles/Vol] 8.6 mmol/L Normal [facility] Comment on above: Performed By: #### C MADM, CMP, BNP ####[facility] Tsfgpxyqkb6808 [place] [address]Dr. Areli Yousif AST [Catalytic activity/Vol] 15 U/L Normal 15-37 [facility] Comment on above: Performed By: #### C MADM, CMP, BNP ####[facility] Wvdwnogijn26[address] [place] [address]Dr. Areli Yousif Bilirubin [Mass/Vol] 0.2 mg/dL Normal 0.2-1.0 [facility] Comment on above: Performed By: #### C MADM, CMP, BNP ####[facility] Zkngkfnhnm9[address] [place] [address]Dr. Areli Yousif Calcium [Mass/Vol] 9.0 mg/dL Normal 8.5-10.1 [facility] Comment on above: Performed By: #### C MADM, CMP, BNP ####[facility] Cqnkqbpemx[address] [place], [place] [address]Dr. Areli Yousif Chloride [Moles/Vol] 101 mmol/L Normal 98-107 [facility] Comment on above: Performed By: #### C MADM, CMP, BNP ####[facility] Iiayhhgaqy[address] [place], [place] [address]Dr. Areli Yousif CO2 [Moles/Vol] 30.0 mmol/L Normal 21.0-32.0 The [facility] Comment on above: Performed By: #### C MADM, CMP, BNP ####[facility] Pobyscvclb8[address] [place], [place] [address]Dr. Areli Yousif Creatinine [Mass/Vol] 1.25 mg/dL Normal 0.70-1.30 [facility] Comment on above: Performed By: #### C MADM, CMP, BNP ####[facility] Eiobnbqnmh34[address] [place], [place] [address]Dr. Areli Yousif EGFR-AF MOSOTHO >60 Normal >=60 The [facility] Comment on above: Performed By: #### C MADM, CMP, BNP ####[facility] Jniaycdgfz[address] [place], [place] [address]Dr. Areli Yousif EGFR-NON AF MOSOTHO 57 mL/min/1.73m2 Critically low >=60 [facility] Comment on above: Performed By: #### C MADM, CMP, BNP ####[facility] Sudjbmhuiq[address] [place] [address]Dr. Areli Yousif Globulin (S) [Mass/Vol] 3.9 g/dL Normal [facility] Comment on above: Performed By: #### C MADM, CMP, BNP ####[facility] Ashnwhrfdv40[address] [place] [address]Dr. Areli Yousif Glucose [Mass/Vol] 273 mg/dL Critically high 74-106 T [facility] Comment on above: Performed By: #### C MADM, CMP, BNP ####[facility] Yvkgbzdwpd20[address] [place] [address]Dr. Areli Yousif Potassium [Moles/Vol] 5.6 mmol/L Critically high 3.5-5.1 [facility] Comment on above: Performed By: #### C MADM, CMP, BNP ####[facility] Kllqroadlt75[address] [place] [address]Dr. Areli Yousif Protein [Mass/Vol] 6.9 g/dL Normal 6.4-8.2 [facility] Comment on above: Performed By: #### C MADM, CMP, BNP ####[facility] Vfweuiybdh9033 [place] [address]Dr. Areli Yousif Sodium [Moles/Vol] 134 mmol/L Critically low 136-145 Th [facility] Comment on above: Performed By: #### C MADM, CMP, BNP ####[facility] Wsaubzksem3[address] [place] [address]Dr. Areli Yousif Urea nitrogen [Mass/Vol] 40.0 mg/dL Critically high 7.0-18.0 [facility] Comment on above: Performed By: #### C MADM, CMP, BNP ####[facility] Eckuutjbgf6[address] [place], [place] [address]Dr. Areli Yousif Urea nitrogen/Creatinine [Mass ratio] 32.0 mg/mg Normal [facility] Comment on above: Performed By: #### C MADM, CMP, BNP ####[facility] Xnvmdwptfs89[address] [place] [address]Dr. Areli Yousif PROTIMEon 12-17-2022 INR Coag (PPP) [Relative time] 1.02 {INR} Normal [facility] Comment on above: Performed By: #### P T, PTT ####[facility] Ezztoqnxso[address] [place], [place] [address]Dr. Areli Yousif INR GUIDELINES SEE BELOW Normal [facility] Comment on above: Result Comment: LANDON RED INR: 2.0 - 3.0 CONDITIONS NOT LISTED BELOW 2.5 - 3.5 FOR PROSTHETIC HEART VALVE REPLACEMENT 2.5 - 3.5 RECURRENT THROMBOSIS Performed By: #### P T, PTT ####[facility] Irtfkbpdte8[address] [place], [place] [address]Dr. Areli Yousif PT Coag (PPP) [Time] 10.8 s Normal 9.0-11.6 [facility] Comment on above: Performed By: #### P T, PTT ####[facility] Inagadlmqd067[address] [place], [place] [address]Dr. Areli Yousif PTTon 12-17-2022 aPTT Coag (Bld) [Time] 27.3 s Normal 22.3-36.2 Th [facility] Comment on above: Performed By: #### P T, PTT ####[facility] Rjdtuewtwa6[address] [place], [place] [address]Dr. Areli Yousif XR CHEST 1 Von 12-17-2022 XR CHEST 1 V Normal [facility] XR HIP LT 2 3V W PELVISon XR HIP LT 2 3V W PELVIS Normal [facility] GLYCOHEMOGLOBIN A1Con 2022 ADA RECOMMENDATION SEE BELOW Normal [facility] Comment on above: Result Comment: ADA RECOMMENDED LIMIT 4.0 - 6.0 ADA THERAPEUTIC TARGET < 7.0 ACTION SUGGESTED > 7.0 Performed By: #### A 1C ####[facility] Frmnghisga894[address] [place], [place] [address]Dr. Areli Yousif Glucose [Mass/Vol] 186 mg/dL Normal [facility] Comment on above: Performed By: #### A 1C ####[facility] Vlwzomvnvq[address] [place], [place] [address]DrDenae Yousif HbA1c (Bld) [Mass fraction] 8.1 % Critically high 4.5-6.2 [facility] Comment on above: Performed By: #### A 1C ####[facility] Kcgvjjcqrt[address] [place], [place] [address]Dr. Areli Yousif CBC AUTO DIFFon 11-24-2022 BASO # 0.0 103/ul Normal 0.0-0.1 [facility] Comment on above: Performed By: #### C BC ####[facility] Jdiksjxzho[address] [place], [place] [address]Dr. Areli Benja Basophils/100 WBC (Bld) 0.1 % Critically low 0.2-2.0 [facility] Comment on above: Performed By: #### C BC ####[facility] Xavjhrtejd[address] [place], [place] [address]Dr. Areli Benja EO # 0.0 103/ul Normal 0.0-0.7 [facility] Comment on above: Performed By: #### C BC ####[facility] Cyokuydxjb[address] [place], [place] [address]Dr. Tabbytulio Yousif Eosinophils/100 WBC (Bld) 0.0 % Critically low 0.9-7.0 The [facility] Comment on above: Performed By: #### C BC ####[facility] Gnomsmdlge6[address] [place], [place] [address]Dr. Areli Yousif Erythrocyte distribution width (RBC) [Ratio] 12.8 % Normal 11.0-15.0 The [facility] Comment on above: Performed By: #### C BC ####[facility] Fzqmnnhofw[address] [place], [place] [address]Dr. Areli Yousif Hematocrit (Bld) [Volume fraction] 32.3 % Critically low 42.0-54.0 [facility] Comment on above: Performed By: #### C BC ####[facility] Oqyplvbfyn[address] [place], [place] [address]Dr. Tabbytulio Benja Hemoglobin (Bld) [Mass/Vol] 10.5 g/dL Critically low 14.0-18.0 [facility] Comment on above: Performed By: #### C BC ####[facility] Xdqmsegzid12[address] [place] [address]Dr. Areli Yousif IG # 0.03 10e3/ul Normal 0.00-0.03 [facility] Comment on above: Performed By: #### C BC ####[facility] Ddsmmqzszi7190 [place] [address]Dr. Areli Benja IG % 0.4 % Normal 0.0-0.5 [facility] Comment on above: Performed By: #### C BC ####[facility] Myegeakxny[address] [place], [place] [address]Dr. Tabbytulio Yousif LYMPH # 1.3 103/ul Normal 1.2-3.8 [facility] Comment on above: Performed By: #### C BC ####[facility] Wzaakclxuy7[address] [place], [place] [address]Dr. Tabbytulio Yousif Lymphocytes/100 WBC (Bld) 15.7 % Critically low 20.5-60.0 [facility] Comment on above: Performed By: #### C BC ####[facility] Ihhvijffzn[address] [place], [place] [address]Dr. Tabbytulio Yousif MANUAL DIFF REQ NO Normal [facility] Comment on above: Performed By: #### C BC ####[facility] Cnlhgxqjrr123[address] [place], [place] [address]DrDenae Areli Yousif MCH (RBC) [Entitic mass] 28.5 pg Normal 25.9-34.0 [facility] Comment on above: Performed By: #### C BC ####[facility] Icknbsladq[address] [place], [place] [address]DrDenae Areli Benja MCHC (RBC) [Mass/Vol] 32.5 g/dL Normal 29.9-35.2 [facility] Comment on above: Performed By: #### C BC ####[facility] Rkprrkfmwz[address] [place], [place] [address]DrDenae Areli Benja MCV (RBC) [Entitic vol] 87.5 fL Normal 80.0-94.0 [facility] Comment on above: Performed By: #### C BC ####[facility] Kjnjxjmnet[address] [place], [place] [address]Dr. Areli Yousif MONO # 0.2 103/ul Critically low 0.3-0.8 The [facility] Comment on above: Performed By: #### C BC ####[facility] Xbtejtdjcy5667 [place] [id number]. Areli Yousif Monocytes/100 WBC (Bld) 2.9 % Normal 1.7-12.0 [facility] Comment on above: Performed By: #### C BC ####[facility] Xqyefkzkob8724 [place] [id number]. Areli Yousif NEUT # 6.4 103/ul Normal 1.4-6.5 [facility] Comment on above: Performed By: #### C BC ####[facility] Ogdilaxmeq14[address] [place] [address]Dr. Areli Yousif Neutrophils/100 WBC (Bld) 80.9 % Critically high 43.0-75.0 The [facility] Comment on above: Performed By: #### C BC ####[facility] Xikdwknuym3314 [place] [id number]. Areli Yousif Platelet mean volume (Bld) [Entitic vol] 10.3 fL Normal 9.5-13.5 [facility] [facility] Comment on above: Performed By: #### C BC ####[facility] Oci[address]renx[address] [place] [id number]. Areli Yousif PLT 315 103/ul Normal 150-450 The [facility] Comment on above: Performed By: #### C BC ####[facility] Rrrgdruejs[address] [place] [id number]. Areli Yousif RBC 3.69 106/ul Critically low 4.70-6.10 The [facility] Comment on above: Performed By: #### C BC ####[facility] Vfswuynjns[address] [place] [id number]. Areli Yousif WBC 8.0 103/ul Normal 4.0-11.0 The [facility] Comment on above: Performed By: #### C BC ####[facility] Njzlfuhzoo[address] [phone]. Areli Yousif POINT OF CARE GLUCOSEon 11-06 0 Glucose [Mass/Vol] 386 mg/dL Critically high 74-106 [facility] Comment on above: Performed By: #### P OCGLUC ####[facility] [address]iklhpid[address] [place] [address]Dr. Areli Yousif Glucose [Mass/Vol] 246 mg/dL Critically high 74-106 [facility] Comment on above: Performed By: #### P OCGLUC ####[facility] Eebeupjzab[address] [place], [place] [address]Dr. Areli Yousif PROF 14(COMP METB)on 023 Albumin [Mass/Vol] 2.4 g/dL Critically low 3.4-5.[address] [facility] Comment on above: Performed By: #### C MP ####[facility] Ugkhtrfuig268[address] [place], [place] [address]Dr. Areli Yousif Albumin/Globulin [Mass ratio] 0.7 {ratio} Normal [facility] Comment on above: Performed By: #### C MP ####[facility] Dzbjxuczqf7[address] [place], [place] [address]Dr. Areli Yousif ALP [Catalytic activity/Vol] 71 U/L Normal 46-116 [facility] Comment on above: Performed By: #### C MP ####[facility] Oiyarifdkc426[address] [place], [place] [address]Dr. Areli Yousif ALT [Catalytic activity/Vol] 20 U/L Normal 16-63 [facility] Comment on above: Performed By: #### C MP ####[facility] Qjtdzobxiy040[address] [place], [place] [address]Dr. Areli Yousif Anion gap [Moles/Vol] 14.2 mmol/L Normal [facility] Comment on above: Performed By: #### C MP ####[facility] Ttetzchtqq[address] [place], [place] [address]Dr. Areli Yousif AST [Catalytic activity/Vol] 12 U/L Critically low 15-37 [facility] Comment on above: Performed By: #### C MP ####[facility] Ykyjaqxvbc200[address] [place], [place] [address]Dr. Areli Yousif Bilirubin [Mass/Vol] 0.2 mg/dL Normal 0.2-1.0 The [facility] Comment on above: Performed By: #### C MP ####[facility] Hmcdgpfdqj294[address] [place], [place] [address]Dr. Areli Yousif Calcium [Mass/Vol] 8.8 mg/dL Normal 8.5-10.1 The [facility] Comment on above: Performed By: #### C MP ####[facility] Uwgqvflkae8[address] [place], [place] [address]Dr. Areli Yousif Chloride [Moles/Vol] 102 mmol/L Normal 98-107 The [facility] Comment on above: Performed By: #### C MP ####[facility] Swinjibjdf68[address] [place], [place] [address]Dr. Areli Yousif CO2 [Moles/Vol] 25.6 mmol/L Normal 21.0-32.0 The [facility] Comment on above: Performed By: #### C MP ####[facility] Nqjziijscd[address] [place], [place] [address]Dr. Areli Yousif Creatinine [Mass/Vol] 0.98 mg/dL Normal 0.70-1.30 The [facility] Comment on above: Performed By: #### C MP ####[facility] Dgfkutlygh824[address] [place], [place] [address]Dr. Tabbytulio Benja EGFR-AF MOSOTHO >60 Normal >=60 The [facility] Comment on above: Performed By: #### C MP ####[facility] Cumgkhjotf8[address] [place], [place] [address]Dr. Tabbytulio Benja EGFR-NON AF MOSOTHO >60 Normal >=60 The [facility] Comment on above: Performed By: #### C MP ####[facility] Iogtqaerat[address] [place], [place] [address]Dr. Areli Yousif Globulin (S) [Mass/Vol] 3.6 g/dL Normal [facility] Comment on above: Performed By: #### C MP ####[facility] Gqihmlpmyr16[address] [place], [place] [address]Dr. Areli Yousif Glucose [Mass/Vol] 236 mg/dL Critically high 74-106 [facility] Comment on above: Performed By: #### C MP ####[facility] Madtcnkoqw[address] [address]Dr. Areli Yousif Potassium [Moles/Vol] 3.8 mmol/L Normal 3.5-5.1 [facility] Comment on above: Performed By: #### C MP ####[facility] Zyhbnbsylj79[address] [place], [place] [address]Dr. Areli Yousif Protein [Mass/Vol] 6.0 g/dL Critically low 6.4-8.2 Th [facility] Comment on above: Performed By: #### C MP ####[facility] Czioufxfdk602[address] [place], [place] [address]Dr. Areli Yousif Sodium [Moles/Vol] 138 mmol/L Normal 136-145 [facility] Comment on above: Performed By: #### C MP ####[facility] Swbowftotm964[address] [place], [place] [address]Dr. Areli Yousif Urea nitrogen [Mass/Vol] 29.0 mg/dL Critically high 7.0-18.0 [facility] Comment on above: Performed By: #### C MP ####[facility] Mbhjrfxoeh8[address] [place], [place] [address]Dr. Areli Yousif Urea nitrogen/Creatinine [Mass ratio] 29.6 mg/mg Normal [facility] Comment on above: Performed By: #### C MP ####[facility] Tqmgxucinb417[address] [place], [place] [address]Dr. Areli Yousif CBC AUTO DIFFon 11-23-2022 BASO # 0.0 103/ul Normal 0.0-0.1 [facility] Comment on above: Performed By: #### C BC ####[facility] Ihnpgygwpa[address] [place], [place] [address]Dr. Areli Yousif Basophils/100 WBC (Bld) 0.1 % Critically low 0.2-2.0 [facility] Comment on above: Performed By: #### C BC ####[facility] Kgpamaosfu[address] [place], [place] [address]Dr. Areli Yousif EO # 0.0 103/ul Normal 0.0-0.7 The [facility] Comment on above: Performed By: #### C BC ####[facility] Eexrupduij[address] [place] [address]Dr. Areli Yousif Eosinophils/100 WBC (Bld) 0.0 % Critically low 0.9-7.0 The [facility] Comment on above: Performed By: #### C BC ####[facility] Ndxrhoenxz[address] [place] [address]Dr. Areli Yousif Erythrocyte distribution width (RBC) [Ratio] 13.2 % Normal 11.0-15.0 The [facility] Comment on above: Performed By: #### C BC ####[facility] Crognlyeip[address] [place] [address]Dr. Areli Yousif Hematocrit (Bld) [Volume fraction] 31.2 % Critically low 42.0-54.0 The [facility] Comment on above: Performed By: #### C BC ####[facility] Xpjfjjyoui[address] [place] [address]Dr. Areli Yousif Hemoglobin (Bld) [Mass/Vol] 10.0 g/dL Critically low 14.0-18.0 The [facility] Comment on above: Performed By: #### C BC ####[facility] Zouxyzgokh[address] [place] [address]Dr. Areli Yousif IG # 0.06 10e3/ul Critically high 0.00-0.03 The [facility] Comment on above: Performed By: #### C BC ####[facility] Gdglckaopa[address] [place] [address]Dr. Tabbytulio Yousif IG % 0.5 % Normal 0.0-0.5 The [facility] Comment on above: Performed By: #### C BC ####[facility] Nkkzoiytme[address] [place] [address]Dr. Areli Yousif LYMPH # 2.1 103/ul Normal 1.2-3.8 The [facility] Comment on above: Performed By: #### C BC ####[facility] Wxjyfislwl[address] [place] [address]Dr. Areli Yousif Lymphocytes/100 WBC (Bld) 16.9 % Critically low 20.5-60.0 The [facility] Comment on above: Performed By: #### C BC ####[facility] Esf[address]ijv[address] [place] [address]Dr. Areli Benja MANUAL DIFF REQ NO Normal The [facility] Comment on above: Performed By: #### C BC ####[facility] Yohvtnnjak[address] [place] [address]Dr. Areli Benja MCH (RBC) [Entitic mass] 28.7 pg Normal 25.9-34.0 The [facility] Comment on above: Performed By: #### C BC ####[facility] Qdaisjdixv[address] [place], [place] [address]Dr. Areli Benja MCHC (RBC) [Mass/Vol] 32.1 g/dL Normal 29.9-35.2 The [facility] Comment on above: Performed By: #### C BC ####[facility] Wdkytulref[address] [place], [place] [address]Dr. Areli Benja MCV (RBC) [Entitic vol] 89.7 fL Normal 80.0-94.0 The [facility] Comment on above: Performed By: #### C BC ####[facility] Smklwsbjll[address] [place], [place] [address]Dr. Areli Benja MONO # 0.5 103/ul Normal 0.3-0.8 The [facility] Comment on above: Performed By: #### C BC ####[facility] Sy[address]xliqgdd[address] [place] [address]Dr. Areli Benja Monocytes/100 WBC (Bld) 3.9 % Normal 1.7-12.0 The [facility] Comment on above: Performed By: #### C BC ####[facility] Nldbiqclyv[address] [place], [place] [address]Dr. Tabbytulio Benja NEUT # 9.9 103/ul Critically high 1.4-6.5 The [facility] Comment on above: Performed By: #### C BC ####[facility] Wthdihqvos36[address] [place] [phone]. Areli Yousif Neutrophils/100 WBC (Bld) 78.6 % Critically high 43.0-75.0 [facility] Comment on above: Performed By: #### C BC ####[facility] Dlewodfnvv[address] [place] [phone]. Areli Yousif Platelet mean volume (Bld) [Entitic vol] 10.1 fL Normal 9.5-13.5 The [facility] Comment on above: Performed By: #### C BC ####[facility] Mvapssjokq4[address] [place] [phone]. Areli Yousif PLT 289 103/ul Normal 150-450 [facility] Comment on above: Performed By: #### C BC ####[facility] Tvtdisadaz34[address] [place] [address]Dr. Areli Yousif RBC 3.48 106/ul Critically low 4.70-6.10 The [facility] Comment on above: Performed By: #### C BC ####[facility] Jeqxtkznhi37[address] [place] [phone]. Areli Yousif WBC 12.6 103/ul Critically high 4.0-11.0 [facility] Comment on above: Performed By: #### C BC ####[facility] Aokueezsfz4[address] [place] [phone]. Areli Yousif POINT OF CARE GLUCOSEon 11-05 Glucose [Mass/Vol] 277 mg/dL Critically high 74-106 [facility] Comment on above: Performed By: #### P OCGLUC ####[facility] Njkhaigdoe59[address] [place] [phone]. Areli Yousif Glucose [Mass/Vol] 355 mg/dL Critically high 74-106 [facility] Comment on above: Performed By: #### P OCGLUC ####[facility] Gmxqmzpkxi39[address] [place] [phone]. Areli Yousif Glucose [Mass/Vol] 252 mg/dL Critically high 74-106 [facility] Comment on above: Performed By: #### P OCGLUC ####[facility] Zshveeqnhx87[address] [place], [place] [address]Dr. Areli Yousif PROF 14(COMP METB)on 023 Albumin [Mass/Vol] 2.3 g/dL Critically low 3.4-5.[address] [facility] Comment on above: Performed By: #### C MP ####[facility] Dohkbhaowz[address] [place], [place] [address]Dr. Areli Yousif Albumin/Globulin [Mass ratio] 0.7 {ratio} Normal [facility] Comment on above: Performed By: #### C MP ####[facility] Algkusbuzj754[address] [place], [place] [address]Dr. Areli Yousif ALP [Catalytic activity/Vol] 69 U/L Normal 46-116 [facility] Comment on above: Performed By: #### C MP ####[facility] Iqfyvjnnmn[address] [place], [place] [address]Dr. Areli Yousif ALT [Catalytic activity/Vol] 17 U/L Normal 16-63 [facility] Comment on above: Performed By: #### C MP ####[facility] Ynwvbfkaho003[address] [place], [place] [address]Dr. Areli Yousif Anion gap [Moles/Vol] 13.8 mmol/L Normal [facility] Comment on above: Performed By: #### C MP ####[facility] Opozxqnytw9[address] [place], [place] [address]Dr. Areli Yousif AST [Catalytic activity/Vol] 13 U/L Critically low 15-37 [facility] Comment on above: Performed By: #### C MP ####[facility] Xuludrrewq243[address] [place], [place] [address]Dr. Areli Yousif Bilirubin [Mass/Vol] 0.2 mg/dL Normal 0.2-1.0 [facility] Comment on above: Performed By: #### C MP ####[facility] Qqipjogxst5[address] [place], [place] [address]Dr. Areli Yousif Calcium [Mass/Vol] 8.7 mg/dL Normal 8.5-10.1 [facility] Comment on above: Performed By: #### C MP ####[facility] Xzhckksrkz76[address] [place] [phone]. Areli Benja Chloride [Moles/Vol] 105 mmol/L Normal 98-107 The [facility] Comment on above: Performed By: #### C MP ####[facility] Smbvsdbdrt[address] [place] [address]Dr. Areli Yousif CO2 [Moles/Vol] 24.8 mmol/L Normal 21.0-32.0 The [facility] Comment on above: Performed By: #### C MP ####[facility] Zikycgtahb25[address] [place] [address]Dr. Tabbytulio Yousif Creatinine [Mass/Vol] 1.05 mg/dL Normal 0.70-1.30 The [facility] Comment on above: Performed By: #### C MP ####[facility] Culnziewnm[address] [place] [address]Dr. Tabbytulio Benja EGFR-AF MOSOTHO >60 Normal >=60 The [facility] Comment on above: Performed By: #### C MP ####[facility] Anhspjlrfw[address] [place] [address]Dr. Areli Benja EGFR-NON AF MOSOTHO >60 Normal >=60 The [facility] Comment on above: Performed By: #### C MP ####[facility] Ylaaydupzi[address] [place] [address]Dr. Areli Yousif Globulin (S) [Mass/Vol] 3.5 g/dL Normal [facility] Comment on above: Performed By: #### C MP ####[facility] Tvjhyrkniw[address] [place] [address]Dr. Areli Yousif Glucose [Mass/Vol] 215 mg/dL Critically high 74-106 [facility] Comment on above: Performed By: #### C MP ####[facility] Nojqsarxtn745[address] [place], [place] [address]Dr. Areli Yousif Potassium [Moles/Vol] 3.6 mmol/L Normal 3.5-5.1 The [facility] Comment on above: Performed By: #### C MP ####[facility] Ivviapvows[address] [place], [place] [address]Dr. Areli Yousif Protein [Mass/Vol] 5.8 g/dL Critically low 6.4-8.2 Th e [facility] Comment on above: Performed By: #### C MP ####[facility] Qdzxkcaoyg[address] [place], [place] [address]Dr. Areli Yousif Sodium [Moles/Vol] 140 mmol/L Normal 136-145 [facility] Comment on above: Performed By: #### C MP ####[facility] Huxasmnbzn575[address] [place], [place] [address]Dr. Areli Yousif Urea nitrogen [Mass/Vol] 31.0 mg/dL Critically high 7.0-18.0 [facility] Comment on above: Performed By: #### C MP ####[facility] Bhedoyslyu30[address] [place], [place] [address]Dr. Areli Yousif Urea nitrogen/Creatinine [Mass ratio] 29.5 mg/mg Normal [facility] Comment on above: Performed By: #### C MP ####[facility] Hxjddjbwsu411[address] [place], [place] [address]Dr. Areli Yousif CBC AUTO DIFFon 11-22-2022 BASO # 0.0 103/ul Normal 0.0-0.1 [facility] Comment on above: Performed By: #### C BC ####[facility] Dnyejmnbyy39[address] [place], [place] [address]Dr. Areli Benja Basophils/100 WBC (Bld) 0.1 % Critically low 0.2-2.0 [facility] Comment on above: Performed By: #### C BC ####[facility] Cougjfnbyn[address] [place], [place] [address]Dr. Areli Yousif EO # 0.0 103/ul Normal 0.0-0.7 The [facility] Comment on above: Performed By: #### C BC ####[facility] Wrywmrfbfr[address] [place], [place] [address]Dr. Areli Benja Eosinophils/100 WBC (Bld) 0.1 % Critically low 0.9-7.0 [facility] Comment on above: Performed By: #### C BC ####[facility] Tmghdvcykn[address] [place] [address]Dr. Areli Yousif Erythrocyte distribution width (RBC) [Ratio] 13.2 % Normal 11.0-15.0 The [facility] Comment on above: Performed By: #### C BC ####[facility] Vdcqywehih5[address] [place] [address]Dr. Areli Yousif Hematocrit (Bld) [Volume fraction] 31.1 % Critically low 42.0-54.0 The [facility] Comment on above: Performed By: #### C BC ####[facility] Lrvvaomrei8[address] [place], [place] [address]Dr. Tabbytulio Yousif Hemoglobin (Bld) [Mass/Vol] 10.0 g/dL Critically low 14.0-18.0 [facility] Comment on above: Performed By: #### C BC ####[facility] Olpbsomeqh[address] [place], [place] [address]Dr. Areli Yousif IG # 0.07 10e3/ul Critically high 0.00-0.03 [facility] Comment on above: Performed By: #### C BC ####[facility] Jpxlthpokl668[address] [place], [place] [address]Dr. Tabbytulio Yousif IG % 0.5 % Normal 0.0-0.5 [facility] Comment on above: Performed By: #### C BC ####[facility] Cnbfxkbnot6[address] [place], [place] [address]Dr. Areli Yousif LYMPH # 1.3 103/ul Normal 1.2-3.8 The [facility] Comment on above: Performed By: #### C BC ####[facility] Nkvgfuzrll[address] [place], [place] [address]Dr. Areli Yousif Lymphocytes/100 WBC (Bld) 9.7 % Critically low 20.5-60.0 The [facility] Comment on above: Performed By: #### C BC ####[facility] Npxdxsimzr15[address] [place], [place] [address]Dr. Areli Yousif MANUAL DIFF REQ NO Normal [facility] Comment on above: Performed By: #### C BC ####[facility] Wetoivypfi[address] [place] [id number]. Areli Yousif MCH (RBC) [Entitic mass] 29.1 pg Normal 25.9-34.0 The [facility] Comment on above: Performed By: #### C BC ####[facility] Jsfhoqilqo[address] [place] [address]Dr. Areli Yousif MCHC (RBC) [Mass/Vol] 32.2 g/dL Normal 29.9-35.2 The [facility] Comment on above: Performed By: #### C BC ####[facility] Qnivbntclt[address] [place], [place] [address]Dr. Areli Yousif MCV (RBC) [Entitic vol] 90.4 fL Normal 80.0-94.0 The [facility] Comment on above: Performed By: #### C BC ####[facility] Wuqldahtmu[address] [place], [place] [address]Dr. Areli Yousif MONO # 0.4 103/ul Normal 0.3-0.8 The [facility] Comment on above: Performed By: #### C BC ####[facility] Lvhjakrxcf[address] [place], [place] [address]Dr. Areli Yousif Monocytes/100 WBC (Bld) 2.9 % Normal 1.7-12.0 The [facility] Comment on above: Performed By: #### C BC ####[facility] Bgcppxduav414[address] [place], [place] [address]Dr. Areli Yousif NEUT # 11.7 103/ul Critically high 1.4-6.5 The [facility] Comment on above: Performed By: #### C BC ####[facility] Vrlpickeep8[address] [place], [place] [address]Dr. Areli Benja Neutrophils/100 WBC (Bld) 86.7 % Critically high 43.0-75.0 The [facility] Comment on above: Performed By: #### C BC ####[facility] Ydtenpmyoq[address] [place], [place] [address]Dr. Areli Yousif Platelet mean volume (Bld) [Entitic vol] 10.4 fL Normal 9.5-13.5 The [facility] Comment on above: Performed By: #### C BC ####[facility] Wprpoqwcqe[address] [place], [place] [address]Ow. Areli Yousif PLT 263 103/ul Normal 150-450 [facility] Comment on above: Performed By: #### C BC ####[facility] M[address]fmwwjrc2005 [place], [place] [address]Gk. Areli Yousif RBC 3.44 106/ul Critically low 4.70-6.10 [facility] Comment on above: Performed By: #### C BC ####[facility] Ibpmgqqxgj5036 [place], [place] [address]Ol. Areli Yousif WBC 13.5 103/ul Critically high 4.0-11.0 [facility] Comment on above: Performed By: #### C BC ####[facility] Nergspzzvp94[address] [place] [id number]. Areli Yousif POINT OF CARE GLUCOSEon 11-05 Glucose [Mass/Vol] 239 mg/dL Critically high 74-106 [facility] Comment on above: Performed By: #### P OCGLUC ####[facility] Wizifbbjko9523 [place] [phone]. Areli Yousif Glucose [Mass/Vol] 242 mg/dL Critically high 74-106 [facility] Comment on above: Performed By: #### P OCGLUC ####[facility] Imtvnjnwmp4442 [place] [phone]. Areli Yousif Glucose [Mass/Vol] 231 mg/dL Critically high 74-106 [facility] Comment on above: Performed By: #### P OCGLUC ####[facility] Nairisuits[address] [place] [phone]. Areli Yousif Glucose [Mass/Vol] 203 mg/dL Critically high 74-106 [facility] Comment on above: Performed By: #### P OCGLUC ####[facility] Ypibtnoelc74[address] [place] [address]Dr. Areli Yousif PROF 14(COMP METB)on 023 Albumin [Mass/Vol] 2.2 g/dL Critically low 3.4-5.[address] [facility] Comment on above: Performed By: #### C MP ####[facility] Vtukfwxoku[address] [place] [address]Dr. Areli Yousif Albumin/Globulin [Mass ratio] 0.6 {ratio} Normal [facility] [facility] Comment on above: Performed By: #### C MP ####[facility] Ozmledyukk[address] [place] [id number]. Areli Yousif ALP [Catalytic activity/Vol] 76 U/L Normal 46-116 [facility] Comment on above: Performed By: #### C MP ####[facility] Tkclyuqqum[address] [place] [address]Dr. Areli Yousif ALT [Catalytic activity/Vol] 20 U/L Normal 16-63 [facility] Comment on above: Performed By: #### C MP ####[facility] Pqnwcfnomx56[address] [place] [address]Dr. Areli Yousif Anion gap [Moles/Vol] 13.9 mmol/L Normal [facility] Comment on above: Performed By: #### C MP ####[facility] Vzauhqylgr[address] [place], [place] [address]Dr. Areli Yousif AST [Catalytic activity/Vol] 14 U/L Critically low 15-37 [facility] Comment on above: Performed By: #### C MP ####[facility] Pztqjmsjsp[address] [place], [place] [address]Dr. Areli Yousif Bilirubin [Mass/Vol] 0.2 mg/dL Normal 0.2-1.0 [facility] Comment on above: Performed By: #### C MP ####[facility] Zxggpoewpi[address] [place], [place] [address]Dr. Areli Yousif Calcium [Mass/Vol] 8.6 mg/dL Normal 8.5-10.1 [facility] Comment on above: Performed By: #### C MP ####[facility] Uxpbktcnwj9[address] [place], [place] [address]Dr. Areli Yousif Chloride [Moles/Vol] 106 mmol/L Normal 98-107 [facility] Comment on above: Performed By: #### C MP ####[facility] Imvjgpklmp48[address] [place] [phone]. Areli Yousif CO2 [Moles/Vol] 24.3 mmol/L Normal 21.0-32.0 The [facility] Comment on above: Performed By: #### C MP ####[facility] Cihawmejny45[address] [place] [phone]. Areli Yousif Creatinine [Mass/Vol] 1.24 mg/dL Normal 0.70-1.30 [facility] Comment on above: Performed By: #### C MP ####[facility] Fypmzezoqe5[address] [place] [phone]. Areli Yousif EGFR-AF MOSOTHO >60 Normal >=60 [facility] Comment on above: Performed By: #### C MP ####[facility] Ganovlukhq[address] [place] [address]Dr. Areli Benja EGFR-NON AF MOSOTHO 58 mL/min/1.73m2 Critically low >=60 [facility] Comment on above: Performed By: #### C MP ####[facility] Icflkheeje[address] [place], [place] [address]Dr. Areli Yousif Globulin (S) [Mass/Vol] 3.6 g/dL Normal [facility] Comment on above: Performed By: #### C MP ####[facility] Uxnanxyppt[address] [place] [address]Dr. Areli Yousif Glucose [Mass/Vol] 208 mg/dL Critically high 74-106 T [facility] Comment on above: Performed By: #### C MP ####[facility] Fviyzmhhfg68[address] [place] [address]Dr. Areli Yousif Potassium [Moles/Vol] 4.2 mmol/L Normal 3.5-5.1 [facility] Comment on above: Performed By: #### C MP ####[facility] Meosqwcmof60[address] [place] [address]Dr. Areli Yousif Protein [Mass/Vol] 5.8 g/dL Critically low 6.4-8.2 Th [facility] Comment on above: Performed By: #### C MP ####[facility] Foexjsjlwb4863 [place] [phone]. Areli Yousif Sodium [Moles/Vol] 140 mmol/L Normal 136-145 The [facility] Comment on above: Performed By: #### C MP ####[facility] Klkmbqvjwi9525 [place] [phone]. Areli Yousif Urea nitrogen [Mass/Vol] 33.0 mg/dL Critically high 7.0-18.0 [facility] Comment on above: Performed By: #### C MP ####[facility] Npaiqccnfb9[address] [place] [address]Dr. Areli Yousif Urea nitrogen/Creatinine [Mass ratio] 26.6 mg/mg Normal [facility] Comment on above: Performed By: #### C MP ####[facility] Svsvnmezux14[address] [place] [address]Dr. Areli Yousif XR CHEST 1 Von 11-22-2022 XR CHEST 1 V Normal [facility] CBC AUTO DIFFon 11-21-2022 BASO # 0.0 103/ul Normal 0.0-0.1 [facility] Comment on above: Performed By: #### C BC ####[facility] Ybpwerhgcv12[address] [place], [place] [address]Dr. Areli Benja Basophils/100 WBC (Bld) 0.2 % Normal 0.2-2.0 [facility] Comment on above: Performed By: #### C BC ####[facility] Omcyhqnfiu896[address] [place], [place] [address]Dr. Areli Benja EO # 1.7 103/ul Critically high 0.0-0.7 The [facility] Comment on above: Performed By: #### C BC ####[facility] Rlixnvhkwq6145 [place] [address]Dr. Areli Benja Eosinophils/100 WBC (Bld) 10.2 % Critically high 0.9-7.0 [facility] Comment on above: Performed By: #### C BC ####[facility] Wzkgcagtnv79[address] [place], [place] [id number]. Areli Benja Erythrocyte distribution width (RBC) [Ratio] 13.3 % Normal 11.0-15.0 [facility] Comment on above: Performed By: #### C BC ####[facility] Furjmkoguo4425 [place] [address]DrDenae Yousif Hematocrit (Bld) [Volume fraction] 31.3 % Critically low 42.0-54.0 [facility] Comment on above: Performed By: #### C BC ####[facility] Iynblkirzf8845 [place] [address]DrDenae Yousif Hemoglobin (Bld) [Mass/Vol] 10.4 g/dL Critically low 14.0-18.0 [facility] Comment on above: Performed By: #### C BC ####[facility] Qeesmcrclr9[address] [place], [place] [address]DrDenae Yousif IG # 0.14 10e3/ul Critically high 0.00-0.03 [facility] Comment on above: Performed By: #### C BC ####[facility] Loomjrvivr[address] [place], [place] [address]DrDenae Yousif IG % 0.9 % Critically high 0.0-0.5 [facility] Comment on above: Performed By: #### C BC ####[facility] Umepnuyidm[address] [place], [place] [address]DrDenae Yousif LYMPH # 1.8 103/ul Normal 1.2-3.8 [facility] Comment on above: Performed By: #### C BC ####[facility] Mcugjfpqej55[address] [place], [place] [address]DrDenae Yousif Lymphocytes/100 WBC (Bld) 11.0 % Critically low 20.5-60.0 The [facility] Comment on above: Performed By: #### C BC ####[facility] Ryxjmwjqpq[address] [place], [place] [address]DrDenae Yousif MANUAL DIFF REQ NO Normal [facility] Comment on above: Performed By: #### C BC ####[facility] Wrvzarjpkm812[address] [place], [place] [address]DrDenae Yousif MCH (RBC) [Entitic mass] 29.5 pg Normal 25.9-34.0 [facility] Comment on above: Performed By: #### C BC ####[facility] Cwokerfqqg1544 [place] [address]DrDenae Yousif MCHC (RBC) [Mass/Vol] 33.2 g/dL Normal 29.9-35.2 The [facility] Comment on above: Performed By: #### C BC ####[facility] Swbpqmvavb5718 [place] [address]DrDenae Yousif MCV (RBC) [Entitic vol] 88.9 fL Normal 80.0-94.0 The [facility] Comment on above: Performed By: #### C BC ####[facility] Xyrdyeuspo896[address] [place], [place] [address]DrDenae Yousif MONO # 0.9 103/ul Critically high 0.3-0.8 [facility] Comment on above: Performed By: #### C BC ####[facility] Rawpoxmnrt044[address] [place], [place] [address]DrDenae Yousif Monocytes/100 WBC (Bld) 5.4 % Normal 1.7-12.0 The [facility] Comment on above: Performed By: #### C BC ####[facility] Stonyygpta[address] [place], [place] [address]DrDenae Yousif NEUT # 11.8 103/ul Critically high 1.4-6.5 The [facility] Comment on above: Performed By: #### C BC ####[facility] Ywsmxhoydy[address] [place], [place] [address]DrDenae Yousif Neutrophils/100 WBC (Bld) 72.3 % Normal 43.0-75.0 The [facility] Comment on above: Performed By: #### C BC ####[facility] Babdudclaa24[address] [place], [place] [address]DrDenae Yousif Platelet mean volume (Bld) [Entitic vol] 10.4 fL Normal 9.5-13.5 The [facility] Comment on above: Performed By: #### C BC ####[facility] Rtatshhugo[address] [place], [place] [address]DrDenae Yousif PLT 215 103/ul Normal 150-450 [facility] Comment on above: Performed By: #### C BC ####[facility] Zekpagrkih4472 [place] [phone]. Areli Yousif RBC 3.52 106/ul Critically low 4.70-6.10 [facility] Comment on above: Performed By: #### C BC ####[facility] Xfbeiuxrvr2945 [place] [phone]. Areli Yousif WBC 16.3 103/ul Critically high 4.0-11.0 [facility] Comment on above: Performed By: #### C BC ####[facility] Lgshchitda77[address] [place] [address]Dr. Areli Benja POINT OF CARE GLUCOSEon 11-05 Glucose [Mass/Vol] 274 mg/dL Critically high 74-106 [facility] Comment on above: Performed By: #### P OCGLUC ####[facility] Pmetjgtydj7057 [place] [address]Dr. Areli Yousif Glucose [Mass/Vol] 197 mg/dL Critically high 74-106 [facility] Comment on above: Performed By: #### P OCGLUC ####[facility] Ycwlaixggx9425[address] [place], [place] [address]Dr. Areli Yousif Glucose [Mass/Vol] 135 mg/dL Critically high 74-106 [facility] Comment on above: Performed By: #### P OCGLUC ####[facility] Jfzvmkxuws70[address] [place], [place] [address]DrDenae Areli Benja PROF 14(COMP METB)on 023 Albumin [Mass/Vol] 2.1 g/dL Critically low 3.4-5.[address] [facility] Comment on above: Performed By: #### C MP ####[facility] Kwimopcymw0288 [place] [address]Dr. Areli Yousif Albumin/Globulin [Mass ratio] 0.6 {ratio} Normal [facility] Comment on above: Performed By: #### C MP ####[facility] Boefyurjtq9154 [place] [address]Dr. Areli Yousif ALP [Catalytic activity/Vol] 74 U/L Normal 46-116 [facility] Comment on above: Performed By: #### C MP ####[facility] Rrliyvgvsi2968 [place] [address]Dr. Areli Yousif ALT [Catalytic activity/Vol] 23 U/L Normal 16-63 [facility] Comment on above: Performed By: #### C MP ####[facility] Omwzekqcvb[address] [place], [place] [address]Dr. Areli Benja Anion gap [Moles/Vol] 13.2 mmol/L Normal Th [facility] Comment on above: Performed By: #### C MP ####[facility] Hyyetwrwiv049[address] [place], [place] [address]Dr. Areli Benja AST [Catalytic activity/Vol] 24 U/L Normal 15-37 [facility] Comment on above: Performed By: #### C MP ####[facility] Epuwzvzgah047[address] [place], [place] [address]Dr. Areli Benja Bilirubin [Mass/Vol] 0.3 mg/dL Normal 0.2-1.0 [facility] Comment on above: Performed By: #### C MP ####[facility] Szndybvnmq9[address] [place], [place] [address]Dr. Areli Benja Calcium [Mass/Vol] 8.1 mg/dL Critically low 8.5-10.[address] [facility] Comment on above: Performed By: #### C MP ####[facility] Plvqwtjwey69[address] [place], [place] [address]Dr. Areli Benja Chloride [Moles/Vol] 106 mmol/L Normal 98-107 [facility] Comment on above: Performed By: #### C MP ####[facility] Fnnjnntxuj69[address] [place], [place] [address]Dr. Tabbytulio Yousif CO2 [Moles/Vol] 22.9 mmol/L Normal 21.0-32.0 [facility] Comment on above: Performed By: #### C MP ####[facility] Qdncnyjlqq9[address] [place], [place] [address]Dr. Areli Yousif Creatinine [Mass/Vol] 1.20 mg/dL Normal 0.70-1.30 [facility] Comment on above: Performed By: #### C MP ####[facility] Qckixowzea5573 [place] [address]Dr. Areli Yousif EGFR-AF MOSOTHO >60 Normal >=60 [facility] Comment on above: Performed By: #### C MP ####[facility] Oiuacaserr8192 [place] [phone]. Areli Benja EGFR-NON AF MOSOTHO >60 Normal >=60 [facility] Comment on above: Performed By: #### C MP ####[facility] Iadkaqtvlx9206 [place] [address]Dr. Areli Benja Globulin (S) [Mass/Vol] 3.4 g/dL Normal [facility] Comment on above: Performed By: #### C MP ####[facility] Imxidrlwhj4388 [place] [address]Dr. Areli Benja Glucose [Mass/Vol] 187 mg/dL Critically high 74-106 [facility] Comment on above: Performed By: #### C MP ####[facility] Ueztrzwhnj9129 [place] [address]Dr. Areli Benja Potassium [Moles/Vol] 4.1 mmol/L Normal 3.5-5.1 [facility] Comment on above: Performed By: #### C MP ####[facility] Wtijgkgdgz5802 [place] [address]Dr. Areli Benja Protein [Mass/Vol] 5.5 g/dL Critically low 6.4-8.2 Th [facility] Comment on above: Performed By: #### C MP ####[facility] Crcpoudsoo5072 [place] [address]Dr. Areli Yousif Sodium [Moles/Vol] 138 mmol/L Normal 136-145 [facility] Comment on above: Performed By: #### C MP ####[facility] Aleyrnlcah0324 [place] [address]Dr. Areli Benja Urea nitrogen [Mass/Vol] 24.0 mg/dL Critically high 7.0-18.0 The [facility] Comment on above: Performed By: #### C MP ####[facility] Gbcxhxqvjb6448 [place] [address]Dr. Areli Yousif Urea nitrogen/Creatinine [Mass ratio] 20.0 mg/mg Normal [facility] Comment on above: Performed By: #### C MP ####[facility] Jeniywezxr3162 [place] [address]Dr. Areli Yousif BNPon 11-20-2022 Natriuretic peptide B (Bld) [Mass/Vol] 2097.0 pg/mL Critically high <=900.0 [facility] Comment on above: Performed By: #### C MADM, CMP, BNP ####[facility] Waijrgztcc5184 [place] [address]Dr. Areli Yousif CARDIAC ASHLEY ADMITon 023 CK [Catalytic activity/Vol] 50 U/L Normal 39-308 [facility] Comment on above: Performed By: #### C MADM, CMP, BNP ####[facility] Uevurtektw5316 [place] [address]Dr. Areli Yousif CK.MB [Mass/Vol] ng/mL Normal <=3.60 The [facility] Comment on above: Performed By: #### C MADM, CMP, BNP ####[facility] Lpaawzfpic397[address] [place], [place] [address]Dr. Areli Yousif HSTROP 12.9 pg/mL Normal 4.0-76.1 [facility] Comment on above: Result Comment: CUT- OFF POINTS HAVE BEEN ESTABLISHED BASED ON THE FOURTH UNIVERSAL DEFINITIONS OF MYOCARDIALINFARCTION. THE UPPER REFERENCE LIMIT (URL) OF TROPONIN, DEFINED THE 99TH PERCENTILE OFcTnI DISTRIBUTION IN A REFERENCE POPULATION, HAS BEEN CONFIRMED THE DECISION THRESHOLDFOR AK DIAGNOSIS. Performed By: #### C MADM, CMP, BNP ####[facility] Uuldenkmhq1221 [place] [address]Dr. Areli Yousif LAWRENCE 128 ng/mL Critically high 16-96 [facility] Comment on above: Performed By: #### C MADM, CMP, BNP ####[facility] Fcihawkeny5960 [place] [address]Dr. Areli Yousif CBC W MANUAL DIFFon 11-20-19 23 ATYPICAL LYMPH # Normal The [facility] Comment on above: Performed By: #### C YOLETTE ####[facility] Sbybvjupuc8509 [place] [address]Dr. Areli Yousif ATYPICAL LYMPH % Normal The [facility] Comment on above: Performed By: #### C YOLETTE ####[facility] Appqgoznht34[address] [place], [place] [address]Dr. Areli Yousif BAND # 0.5 103/ul Critically high 0.0-0.3 [facility] Comment on above: Performed By: #### C YOLETTE ####[facility] Pdepxgevlw[address] [place], [place] [address]Dr. Areli Yousif BAND % 3 % Normal 0-5 [facility] Comment on above: Performed By: #### C YOLETTE ####[facility] Esbjmxqtcb52[address] [place], [place] [address]Dr. Areli Yousif BASOM # 0.00 103/ul Normal 0.00-0.10 [facility] Comment on above: Performed By: #### C YOLETTE ####[facility] Rkeflijoqv74[address] [place], [place] [address]Dr. Areli Benja BASOM % 0.0 % Critically low 0.2-2.0 The [facility] Comment on above: Performed By: #### C YOLETTE ####[facility] Gbplfjtrtc[address] [place], [place] [address]Dr. Areli Yousif BLAST # Normal [facility] Comment on above: Performed By: #### C YOLETTE ####[facility] Nffrvbbuma[address] [place], [place] [address]Dr. Areli Yousif BLAST % Normal [facility] Comment on above: Performed By: #### C YOLETTE ####[facility] Avnxqddgel6451 [place] [address]Dr. Areli Yousif CORRECTED WBC Normal 4.0-11.0 [facility] Comment on above: Performed By: #### C YOLETTE ####[facility] Gwtorucegf5188 [place], [place] [address]Yf. Areli Yousif EOS # 0.00 103/ul Normal 0.00-0.70 [facility] Comment on above: Performed By: #### C YOLETTE ####[facility] Tfegfaqxts9994 [place], [place] [address]Eu. Areli Yousif EOS% 0.0 % Critically low 0.9-7.0 The [facility] Comment on above: Performed By: #### C YOLETTE ####[facility] Hfmpesibsv2283 [place], [place] [address]Iv. Areli Yousif HCT 37.7 % Critically low 42.0-54.0 The [facility] Comment on above: Performed By: #### C YOLETTE ####[facility] Oueqwefojw4654 [place] [id number]. Areli Yousif HGB 12.1 g/dl Critically low 14.0-18.0 The [facility] Comment on above: Performed By: #### Reed DE LA [place]GA ####[facility] Nmttixuxjq4240 [place] [id number]. Areli Yousif LYMPHM # 0.15 103/ul Critically low 1.20-3.80 [facility] Comment on above: Performed By: #### Reed DE [place] ####[facility] Fdsjcbyiuf5125 [place], [place] [address]Ki. Areli Yousif LYMPHM% 1.0 % Critically low 20.5-60.0 The [facility] Comment on above: Performed By: #### Reed [place] ####[facility] Mvilgbdwrp0324 [place] [id number]. Areli Yousif MCH 28.8 pg Normal 25.9-34.0 [facility] Comment on above: Performed By: #### C YOLETTE ####[facility] Mhkglvaawf4163 [place], [place] [address]Us. Areli Yousif MCHC 32.1 g/dl Normal 29.9-35.2 The [facility] Comment on above: Performed By: #### Reed [place] ####[facility] Thmigeiiii9802 [place] [id number]. Areli Yousif MCV 89.8 fL Normal 80.0-94.0 [facility] Comment on above: Performed By: #### C BCMAN ####[facility] Ydgiljnmwu2805 [place] [phone]. Areli Yousif METAMYELOCYTE # Normal [facility] Comment on above: Performed By: #### C YOLETTE ####[facility] Qhffiltsxa5476 [place] [phone]. Areli Yousif METAMYELOCYTE % Normal [facility] Comment on above: Performed By: #### C YOLETTE ####[facility] Wznaihfuhf0751 [place] [phone]. Areli Yousif MONOM# 1.08 103/ul Critically high 0.30-0.80 [facility] Comment on above: Performed By: #### C YOLETTE ####[facility] Ekunsipvvn[address] [place], [place] [address]Dr. Areli Yousif MONOM% 7.0 % Normal 1.7-12.0 [facility] Comment on above: Performed By: #### C YOLETTE ####[facility] Flrjyqenob[address] [place], [place] [address]Dr. Areli Yousif MPV 10.2 fL Normal 9.5-13.5 [facility] Comment on above: Performed By: #### C YOLETTE ####[facility] Ehnglqlrid6429 [place] [phone]. Areli Yousif MYELOCYTE # Normal [facility] Comment on above: Performed By: #### C YOLETTE ####[facility] Ldqkdyvsus8347 [place] [phone]. Areli Yousif MYELOCYTE % Normal [facility] Comment on above: Performed By: #### C YOLETTE ####[facility] Jiswatjjon[address] [place], [place] [address]Dr. Areli Yousif NRBC Normal [facility] Comment on above: Performed By: #### C YOLETTE ####[facility] Stxjiwpzuq3660 [place] [phone]. Areli Benja PLT 268 103/ul Normal 150-450 [facility] Comment on above: Performed By: #### C YOLETTE ####[facility] Giftahiwfb1746 [place] [phone]. Areli Yousif RBC 4.20 106/ul Critically low 4.70-6.10 [facility] Comment on above: Performed By: #### C YOLETTE ####[facility] Bxpbindcqo9950 [place] [phone]. Areli Yousif RDW 13.2 % Normal 11.0-15.0 [facility] Comment on above: Performed By: #### C YOLETTE ####[facility] Ryidlwvdvz5529 [place] [phone]. Areli Yousif SEG # 13.71 103/ul Critically high 1.40-6.50 [facility] Comment on above: Performed By: #### C YOLETTE ####[facility] Mpkoxjqguv2133 [place] [phone]. Areli Yousif SEG % 89.0 % Critically high 43.0-75.0 [facility] Comment on above: Performed By: #### C YOLETTE ####[facility] Xkvcugynzv4490 [place] [phone]. Areli Yousif TOXIC GRANULATION 2+ Normal The [facility] Comment on above: Performed By: #### C YOLETTE ####[facility] [address] [place] [id number]. Areli Yousif WBC 15.4 103/ul Critically high 4.0-11.0 [facility] Comment on above: Performed By: #### C YOLETTE ####[facility] Jffdoijupu[address] [id number]. Areli Yousif CULTURE BLOODon 11-20-2022 Microscopic examination of blood, culture Culture Observations: NO GROWTH AT 5 DAYS. Normal The [facility] Comment on above: Performed By: #### B LDCX1 ####[facility] Ldhlwlnvxa57[address] [place] [id number]. Areli Yousif Performed By: #### B LDCX2 ####[facility] Mzxqgbnhdb[address] [place], [place] [address]Dr. Areli Yousif Covid-19 PCR (CVDTB)on 11-05 SARS-CoV-2 (COVID-19) RNA MANSI+probe Ql (Unsp spec) Detected Abnormal NOT DETECTED The [facility] Comment on above: Result Comment: This test is not yet approved or cleared by the [place] FDA. When there are no FDA-approved or cleared tests available, and other criteria are met, FDA can make tests available under an emergency access mechanism called an Emergency Use Authorization (EUA). The EUA for this test is supported by the Folder [employer] Not[employer] of Health and Human Service's declaration that [...] be used). Performed By: #### C VDTBH ####[facility] Ghpwctzppe[address] [place], [place] [address]Dr. Areli Yousif D-DIMERon 11-20-2022 D-DIMER 0.39 mg/L FEU Normal <=0.59 The [facility] Comment on above: Performed By: #### D DIM ####[facility] Addxfowhgd[address] [place], [place] [address]Dr. Areli Yousif D-DIMER COMMENTS SEE BELOW Normal The [facility] Comment on above: Result Comment: Incr eases [...] generalized hospitalization. Performed By: #### D DIM ####[facility] Wkybelcool[address] [place], [place] [address]Dr. Areli Yousif LACTATE/LACTIC ACIDon 2022 Lactate [Moles/Vol] 1.6 mmol/L Normal 0.4-1.9 [facility] Comment on above: Performed By: #### L ACT ####[facility] Gveiawdnjc[address] [place] [address]Dr. Areli Yousif PROF 14(COMP METB)on 023 Albumin [Mass/Vol] 2.7 g/dL Critically low 3.4-5.[address] [facility] Comment on above: Performed By: #### C MADM, CMP, BNP ####[facility] Lwxebbltvw[address] [place] [address]Dr. Areli Yousif Albumin/Globulin [Mass ratio] 0.8 {ratio} Normal [facility] Comment on above: Performed By: #### C MADM, CMP, BNP ####[facility] Morfdtdytm[address] [place] [address]Dr. Areli Yousif ALP [Catalytic activity/Vol] 91 U/L Normal 46-116 [facility] Comment on above: Performed By: #### C MADM, CMP, BNP ####[facility] Gfmfbscmax[address] [place] [address]Dr. Areli Yousif ALT [Catalytic activity/Vol] 23 U/L Normal 16-63 [facility] Comment on above: Performed By: #### C MADM, CMP, BNP ####[facility] Jeuedylzue[address] [place] [address]Dr. Areli Yousif Anion gap [Moles/Vol] 13.4 mmol/L Normal [facility] Comment on above: Performed By: #### C MADM, CMP, BNP ####[facility] Grrnwjvgmi[address] [place] [address]Dr. Areli Yousif AST [Catalytic activity/Vol] 24 U/L Normal 15-37 [facility] Comment on above: Performed By: #### C MADM, CMP, BNP ####[facility] Kjqxeydbzf[address] [place] [address]Dr. Areli Yousif Bilirubin [Mass/Vol] 0.3 mg/dL Normal 0.2-1.0 [facility] Comment on above: Performed By: #### C MADM, CMP, BNP ####[facility] Nvlsvymtzi[address] [place] [address]Dr. Areli Yousif Calcium [Mass/Vol] 8.6 mg/dL Normal 8.5-10.1 [facility] Comment on above: Performed By: #### C MADM, CMP, BNP ####[facility] Zodvfykixi[address] [place] [address]Dr. Areli Yousif Chloride [Moles/Vol] 102 mmol/L Normal 98-107 [facility] Comment on above: Performed By: #### C MADM, CMP, BNP ####[facility] Vwfxtkimqc0538 [place] [address]Dr. Areli Yousif CO2 [Moles/Vol] 24.7 mmol/L Normal 21.0-32.0 The [facility] Comment on above: Performed By: #### C MADM, CMP, BNP ####[facility] Ogeszcmfdo[address] [place], [place] [address]Dr. Areli Yousif Creatinine [Mass/Vol] 1.45 mg/dL Critically high 0.70-1.30 [facility] Comment on above: Performed By: #### C MADM, CMP, BNP ####[facility] Bvjpmvbobt[address] [place], [place] [address]Dr. Areli Yousif EGFR-AF MOSOTHO 58 mL/min/1.73m2 Critically low >=60 [facility] Comment on above: Performed By: #### C MADM, CMP, BNP ####[facility] Ttzfitsuyc[address] [place] [address]Dr. Areli Yousif EGFR-NON AF MOSOTHO 48 mL/min/1.73m2 Critically low >=60 [facility] Comment on above: Performed By: #### C MADM, CMP, BNP ####[facility] Etjxecpktv[address] [place], [place] [address]Dr. Areli Yousif Globulin (S) [Mass/Vol] 3.6 g/dL Normal [facility] Comment on above: Performed By: #### C MADM, CMP, BNP ####[facility] Gpssgsdial[address] [place] [address]Dr. Areli Yousif Glucose [Mass/Vol] 328 mg/dL Critically high 74-106 [facility] Comment on above: Performed By: #### C MADM, CMP, BNP ####[facility] Ygrfiiiera[address] [place] [address]Dr. Areli Yousif Potassium [Moles/Vol] 4.1 mmol/L Normal 3.5-5.1 [facility] Comment on above: Performed By: #### C MADM, CMP, BNP ####[facility] Ljepweqrih46[address] [place] [address]Dr. Areli Yousif Protein [Mass/Vol] 6.3 g/dL Critically low 6.4-8.2 Th [facility] Comment on above: Performed By: #### C MADDebbie, CMP, BNP ####[facility] Kjrcxwhokn360[address] [place] [address]Dr. Areli Yousif Sodium [Moles/Vol] 136 mmol/L Normal 136-145 [facility] Comment on above: Performed By: #### C MADM, CMP, BNP ####[facility] Cjkymyeqkg7[address] [place] [address]Dr. Areli Yousif Urea nitrogen [Mass/Vol] 24.0 mg/dL Critically high 7.0-18.0 [facility] Comment on above: Performed By: #### C MADDebbie, CMP, BNP ####[facility] Egybwmsiqa60[address] [place] [address]Dr. Areli Yousif Urea nitrogen/Creatinine [Mass ratio] 16.6 mg/mg Normal [facility] Comment on above: Performed By: #### C MADM, CMP, BNP ####[facility] Ppqhtrbirt6[address] [place] [address]Dr. Areli Yousif XR CHEST 1 Von 11-20-2022 XR CHEST 1 V Normal [facility] Outside Recordson 10-27-2022 Outside Records [id number]. 00OTGTIFF Normal [facility] Outside Recordson 10-21-2022 Outside Records [id number] 0OTGTIFF Normal [facility] Outside Records [id number]#1.0 0OTGTIFF Normal [facility] Outside Recordson 10-10-2022 Outside Records [id number]#1. 00OTGTIFF [facility] BNPon 10-08-2022 Natriuretic peptide B (Bld) [Mass/Vol] 508.0 pg/mL Normal <=900.0 [facility] Comment on above: Performed By: #### L IPA, CMADM, BNP, CMP ####[facility] Dwfyiwhyrc[address] [place] [address]Dr. Areli Yousif CARDIAC ASHLEY ADMITon 023 CK [Catalytic activity/Vol] 40 U/L Normal 39-308 [facility] Comment on above: Performed By: #### L IPA, CMADM, BNP, CMP ####[facility] Nyjdrxldqv01[address] [place] [address]Dr. Areli Yousif CK.MB [Mass/Vol] 1.52 ng/mL Normal <=3.60 The [facility] Comment on above: Performed By: #### L IPA, CMADM, BNP, CMP ####[facility] Fjokmylvpc[address] [place] [address]Dr. Areli Yousif HSTROP 12.5 pg/mL Normal 4.0-76.1 [facility] Comment on above: Result Comment: CUT- OFF POINTS HAVE BEEN ESTABLISHED BASED ON THE FOURTH UNIVERSAL DEFINITIONS OF MYOCARDIALINFARCTION. THE UPPER REFERENCE LIMIT (URL) OF TROPONIN, DEFINED THE 99TH PERCENTILE OFcTnI DISTRIBUTION IN A REFERENCE POPULATION, HAS BEEN CONFIRMED THE DECISION THRESHOLDFOR AK DIAGNOSIS. Performed By: #### L IPA, CMADM, BNP, CMP ####[facility] Ohuxatvdav[address] [place] [address]Dr. Areli Yousif LAWRENCE 92 ng/mL Normal 16-96 [facility] Comment on above: Performed By: #### L IPA, CMADM, BNP, CMP ####[facility] Rththhjfpd47[address] [place] [address]Dr. Areli Yousif CBC AUTO DIFFon 10-08-2022 BASO # 0.1 103/ul Normal 0.0-0.1 [facility] Comment on above: Performed By: #### C BC ####[facility] Uxhexckrcf[address] [place], [place] [address]Dr. Areli Benja Basophils/100 WBC (Bld) 0.5 % Normal 0.2-2.0 [facility] Comment on above: Performed By: #### C BC ####[facility] Kmewljekzr[address] [place], [place] [address]Dr. Arlei Benja EO # 0.4 103/ul Normal 0.0-0.7 The [facility] Comment on above: Performed By: #### C BC ####[facility] Phcvrjpfsg[address] [place], [place] [address]Dr. Tabbytulio Yousif Eosinophils/100 WBC (Bld) 3.4 % Normal 0.9-7.0 [facility] Comment on above: Performed By: #### C BC ####[facility] Jxccyhfdpc[address] [place], [place] [address]Dr. Areli Yousif Erythrocyte distribution width (RBC) [Ratio] 13.1 % Normal 11.0-15.0 [facility] Comment on above: Performed By: #### C BC ####[facility] Ansscuevgd[address] [place], [place] [address]Dr. Areli Yousif Hematocrit (Bld) [Volume fraction] 35.4 % Critically low 42.0-54.0 [facility] Comment on above: Performed By: #### C BC ####[facility] Founvpowql[address] [place], [place] [address]Dr. Tabbytulio Yousif Hemoglobin (Bld) [Mass/Vol] 11.6 g/dL Critically low 14.0-18.0 [facility] Comment on above: Performed By: #### C BC ####[facility] Knhbmuraoe[address] [place], [place] [address]Dr. Areli Yousif IG # 0.06 10e3/ul Critically high 0.00-0.03 [facility] Comment on above: Performed By: #### C BC ####[facility] Tdrupnusof66[address] [place] [id number]. Areli Yousif IG % 0.5 % Normal 0.0-0.5 [facility] Comment on above: Performed By: #### C BC ####[facility] Krllojdzva0[address] [place] [id number]. Areli Yousif LYMPH # 2.9 103/ul Normal 1.2-3.8 [facility] Comment on above: Performed By: #### C BC ####[facility] Uajafhyxen18[address] [place] [id number]. Areli Yousif Lymphocytes/100 WBC (Bld) 26.2 % Normal 20.5-60.0 [facility] Comment on above: Performed By: #### C BC ####[facility] Nxzfxdgxgj[address] [place] [address]Dr. Areli Yousif MANUAL DIFF REQ NO Normal [facility] Comment on above: Performed By: #### C BC ####[facility] Yaqpgzelki[address] [place], [place] [address]Dr. Areli Yousif MCH (RBC) [Entitic mass] 29.2 pg Normal 25.9-34.0 [facility] Comment on above: Performed By: #### C BC ####[facility] Qigdetrhrl4234 [place] [phone]. Areli Yousif MCHC (RBC) [Mass/Vol] 32.8 g/dL Normal 29.9-35.2 [facility] Comment on above: Performed By: #### C BC ####[facility] Pmdpuendpe[address] [place], [place] [address]Dr. Areli Yousif MCV (RBC) [Entitic vol] 89.2 fL Normal 80.0-94.0 [facility] Comment on above: Performed By: #### C BC ####[facility] Oavsotflkk65[address] [place] [phone]. Areli Benja MONO # 0.7 103/ul Normal 0.3-0.8 [facility] Comment on above: Performed By: #### C BC ####[facility] Vbfmnsotqa2913 [place] [id number]. Areli Yousif Monocytes/100 WBC (Bld) 6.1 % Normal 1.7-12.0 [facility] Comment on above: Performed By: #### C BC ####[facility] Gykwljkayw3753 [place] [phone]. Areli Yousif NEUT # 7.0 103/ul Critically high 1.4-6.5 The [facility] Comment on above: Performed By: #### C BC ####[facility] Yeuaqguzug4[address] [place] [id number]. Areli Yousif Neutrophils/100 WBC (Bld) 63.3 % Normal 43.0-75.0 [facility] Comment on above: Performed By: #### C BC ####[facility] Psjsgyogyc4688 [place] [address]Dr. Areli Yousif Platelet mean volume (Bld) [Entitic vol] 10.3 fL Normal 9.5-13.5 [facility] Comment on above: Performed By: #### C BC ####[facility] Uhjcpcrszy4997 [place] [id number]. Areli Yousif PLT 317 103/ul Normal 150-450 [facility] Comment on above: Performed By: #### C BC ####[facility] Qypyiorkvb6273 [place] [phone]. Areli Yousif RBC 3.97 106/ul Critically low 4.70-6.10 The [facility] Comment on above: Performed By: #### C BC ####[facility] Bhhpqqajak13[address] [place] [phone]. Areli Yousif WBC 11.0 103/ul Normal 4.0-11.0 [facility] Comment on above: Performed By: #### C BC ####[facility] Okvmqivnki[address] [place] [address]Dr. Areli Yousif CT FACIAL BONES WO CONon CT FACIAL BONES WO CON Normal Th e [facility] LIPASEon 10-08-2022 Lipase [Catalytic activity/Vol] 133.0 U/L Normal 73.0-393.0 [facility] Comment on above: Performed By: #### L IPA, CMADM, BNP, CMP ####[facility] Uhkywzbvab[address] [place] [address]Dr. Areli Yousif PH VENOUS BLOODon 10-08-2022 PCO2 VENOUS 43.2 mmHg Normal 40.0-52.0 [facility] Comment on above: Performed By: #### P HVEN ####[facility] Jbycluspze[address] [place] [address]Dr. Areli Yousif pH VENOUS 7.276 Critically low 7.330-7.430 [facility] Comment on above: Performed By: #### P HVEN ####[facility] Fyinmdnxwj6514 [place] [address]Dr. Areli Yousif PROF 14(COMP METB)on 023 Albumin [Mass/Vol] 2.9 g/dL Critically low 3.4-5.[address] [facility] Comment on above: Performed By: #### L IPA, CMADM, BNP, CMP ####[facility] Vuzleurpjw9572 [place] [address]Dr. Areli Yousif Albumin/Globulin [Mass ratio] 0.7 {ratio} Normal [facility] Comment on above: Performed By: #### L IPA, CMADM, BNP, CMP ####[facility] Wovytsrtex9135 [place] [address]Dr. Areli Yousif ALP [Catalytic activity/Vol] 87 U/L Normal 46-116 [facility] Comment on above: Performed By: #### L IPA, CMADM, BNP, CMP ####[facility] Eiltuxxmeb30[address] [place] [address]Dr. Areli Yousif ALT [Catalytic activity/Vol] 18 U/L Normal 16-63 [facility] Comment on above: Performed By: #### L IPA, CMADM, BNP, CMP ####[facility] Ayckkvbvcp8408 [place] [address]Dr. Areli Yousif Anion gap [Moles/Vol] 16.1 mmol/L Normal [facility] Comment on above: Performed By: #### L IPA, CMADM, BNP, CMP ####[facility] Wgdarfpucv9527 [place] [address]Dr. Areli Yousif AST [Catalytic activity/Vol] 14 U/L Critically low 15-37 The [facility] Comment on above: Performed By: #### L IPA, CMADM, BNP, CMP ####[facility] Nggxqclcmt6548 [place] [address]Dr. Areli Yousif Bilirubin [Mass/Vol] 0.2 mg/dL Normal 0.2-1.0 [facility] Comment on above: Performed By: #### L IPA, CMADM, BNP, CMP ####[facility] Rcgrzheykb5017 [place] [address]Dr. Areli Yousif Calcium [Mass/Vol] 8.8 mg/dL Normal 8.5-10.1 [facility] Comment on above: Performed By: #### L IPA, CMADM, BNP, CMP ####[facility] Relxpkaoos[address] [place], [place] [address]Dr. Areli Yousif Chloride [Moles/Vol] 103 mmol/L Normal 98-107 [facility] Comment on above: Performed By: #### L IPA, CMADM, BNP, CMP ####[facility] Mpheauppur6[address] [place] [address]Dr. Areli Yousif CO2 [Moles/Vol] 21.4 mmol/L Normal 21.0-32.0 The [facility] Comment on above: Performed By: #### L IPA, CMADM, BNP, CMP ####[facility] Pqgbqotdgw3[address] [place] [address]Dr. Areli Yousif Creatinine [Mass/Vol] 1.35 mg/dL Critically high 0.70-1.30 [facility] Comment on above: Performed By: #### L IPA, CMADM, BNP, CMP ####[facility] Okkpxxyjnj9[address] [place] [address]Dr. Areli Yousif EGFR-AF MOSOTHO >60 Normal >=60 The [facility] Comment on above: Performed By: #### L IPA, CMADM, BNP, CMP ####[facility] Vckguhsbij6[address] [place] [address]Dr. Areli Yousif EGFR-NON AF MOSOTHO 53 mL/min/1.73m2 Critically low >=60 The [facility] Comment on above: Performed By: #### L IPA, CMADM, BNP, CMP ####[facility] Rycfmfvdxq05[address] [place] [address]Dr. Areli Yousif Globulin (S) [Mass/Vol] 3.9 g/dL Normal [facility] Comment on above: Performed By: #### L IPA, CMADM, BNP, CMP ####[facility] Hrkbkdrgyp95[address] [place] [address]Dr. Areli Yousif Glucose [Mass/Vol] 276 mg/dL Critically high 74-106 [facility] Comment on above: Performed By: #### L IPA, CMADM, BNP, CMP ####[facility] Vxtilttuof549[address] [place] [address]Dr. Areli Yousif Potassium [Moles/Vol] 4.5 mmol/L Normal 3.5-5.1 [facility] Comment on above: Performed By: #### L IPA, CMADM, BNP, CMP ####[facility] Nhbuljxyco39[address] [place] [address]Dr. Areli Yousif Protein [Mass/Vol] 6.8 g/dL Normal 6.4-8.2 The [facility] Comment on above: Performed By: #### L IPA, CMADM, BNP, CMP ####[facility] Dtdvnfjxgm5740 [place] [address]Dr. Areli Yousif Sodium [Moles/Vol] 136 mmol/L Normal 136-145 The [facility] Comment on above: Performed By: #### L IPA, CMADM, BNP, CMP ####[facility] Qnoxqakojo0231 [place] [address]Dr. Areli Yousif Urea nitrogen [Mass/Vol] 44.0 mg/dL Critically high 7.0-18.0 [facility] Comment on above: Performed By: #### L IPA, CMADM, BNP, CMP ####[facility] Xqucrdejpe[address] [place], [place] [address]Dr. Areli Yousif Urea nitrogen/Creatinine [Mass ratio] 32.6 mg/mg Normal [facility] Comment on above: Performed By: #### L IPA, CMADM, BNP, CMP ####[facility] Maxgsoevxl36[address] [place] [address]Dr. Areli Yousif PROTIMEon 10-08-2022 INR Coag (PPP) [Relative time] 1.04 {INR} Normal [facility] Comment on above: Performed By: #### P T, PTT ####[facility] Rdxckgqmld16[address] [place] [address]Dr. Areli Yousif INR GUIDELINES SEE BELOW Normal The [facility] Comment on above: Result Comment: LANDON RED INR: 2.0 - 3.0 CONDITIONS NOT LISTED BELOW 2.5 - 3.5 FOR PROSTHETIC HEART VALVE REPLACEMENT 2.5 - 3.5 RECURRENT THROMBOSIS Performed By: #### P T, PTT ####[facility] Urltipckhs8906 [place] [address]Dr. Areli Yousif PT Coag (PPP) [Time] 11.2 s Normal 9.0-11.6 [facility] Comment on above: Performed By: #### P T, PTT ####[facility] Dybygbgttv7544 [place] [address]Dr. Areli Yousif PTTon 10-08-2022 aPTT Coag (Bld) [Time] 28.0 s Normal 22.3-36.2 [facility] Comment on above: Performed By: #### P T, PTT ####[facility] Ztewioxazl13[address] [place] [address]Dr. Areli Yousif XR CHEST 1 Von 10-08-2022 XR CHEST 1 V Normal [facility] XR HUMERUS RT MIN 2 Von XR HUMERUS RT MIN 2 V Normal [facility] CBC AUTO DIFFon 10-07-2022 BASO # 0.1 103/ul Normal 0.0-0.1 [facility] Comment on above: Performed By: #### C BC ####[facility] Pqyxkiselk5025 [place] [address]Dr. Areli Yousif Basophils/100 WBC (Bld) 0.6 % Normal 0.2-2.0 The [facility] Comment on above: Performed By: #### C BC ####[facility] Dhwcrunqvm5214 [place] [id number]. Areli Yousif EO # 0.4 103/ul Normal 0.0-0.7 The [facility] Comment on above: Performed By: #### C BC ####[facility] Vgtblgmjyr[address] [place], [place] [address]Dr. Areli Yousif Eosinophils/100 WBC (Bld) 3.5 % Normal 0.9-7.0 The [facility] Comment on above: Performed By: #### C BC ####[facility] Mzkntybpjw[address] [place], [place] [address]Dr. Areli Yousif Erythrocyte distribution width (RBC) [Ratio] 13.4 % Normal 11.0-15.0 [facility] Comment on above: Performed By: #### C BC ####[facility] Xwxfayagmf[address] [place], [place] [address]Dr. Areli Yousif Hematocrit (Bld) [Volume fraction] 36.6 % Critically low 42.0-54.0 [facility] Comment on above: Performed By: #### C BC ####[facility] Bomwnwdpzh[address] [place], [place] [address]Dr. Areli Yousif Hemoglobin (Bld) [Mass/Vol] 12.1 g/dL Critically low 14.0-18.0 [facility] Comment on above: Performed By: #### C BC ####[facility] Etgwfiwpth[address] [place], [place] [address]Dr. Areli Yousif IG # 0.04 10e3/ul Critically high 0.00-0.03 The [facility] Comment on above: Performed By: #### C BC ####[facility] Zbmddswrvy[address] [place], [place] [address]Dr. Areli Yousif IG % 0.4 % Normal 0.0-0.5 [facility] Comment on above: Performed By: #### C BC ####[facility] Ejabswnaof[address] [place], [place] [address]Dr. Areli Yousif LYMPH # 4.1 103/ul Critically high 1.2-3.8 [facility] Comment on above: Performed By: #### C BC ####[facility] [address]zumy[address] [place] [address]Dr. Areli Yousif Lymphocytes/100 WBC (Bld) 38.0 % Normal 20.5-60.0 [facility] Comment on above: Performed By: #### C BC ####[facility] Tetsxndhhd[address] [place] [address]Dr. Areli Yousif MANUAL DIFF REQ NO Normal [facility] Comment on above: Performed By: #### C BC ####[facility] Qbkgzmyphh14[address] [place] [address]Dr. Areli Yousif MCH (RBC) [Entitic mass] 29.1 pg Normal 25.9-34.0 [facility] Comment on above: Performed By: #### C BC ####[facility] Gykefkhjom[address] [place], [place] [address]Dr. Areli Yousif MCHC (RBC) [Mass/Vol] 33.1 g/dL Normal 29.9-35.2 [facility] Comment on above: Performed By: #### C BC ####[facility] Dgikzfvtck[address] [place], [place] [address]Dr. Areli Yousif MCV (RBC) [Entitic vol] 88.0 fL Normal 80.0-94.0 [facility] Comment on above: Performed By: #### C BC ####[facility] Fnjakzzxnv[address] [place] [address]Dr. Areli Yousif MONO # 0.5 103/ul Normal 0.3-0.8 [facility] Comment on above: Performed By: #### C BC ####[facility] Wegsqiznun[address] [place] [address]Dr. Areli Yousif Monocytes/100 WBC (Bld) 4.9 % Normal 1.7-12.0 [facility] Comment on above: Performed By: #### C BC ####[facility] Rewlpkmjqj[address] [place], [place] [address]Dr. Areli Yousif NEUT # 5.6 103/ul Normal 1.4-6.5 [facility] Comment on above: Performed By: #### C BC ####[facility] Anjfkehnlr53[address] [place] [phone]. Areli Yousif Neutrophils/100 WBC (Bld) 52.6 % Normal 43.0-75.0 [facility] Comment on above: Performed By: #### C BC ####[facility] Mnvfqfuixe7854 [place] [phone]. Areli Yousif Platelet mean volume (Bld) [Entitic vol] 10.4 fL Normal 9.5-13.5 [facility] Comment on above: Performed By: #### C BC ####[facility] Ahxidobkyt[address] [place] [address]Dr. Areli Yousif PLT 338 103/ul Normal 150-450 [facility] Comment on above: Performed By: #### C BC ####[facility] Syecpyxuvd7[address] [place] [phone]. Areli Yousif RBC 4.16 106/ul Critically low 4.70-6.10 [facility] Comment on above: Performed By: #### C BC ####[facility] Xclwqthfoj2860 [place] [phone]. Areli Yousif WBC 10.7 103/ul Normal 4.0-11.0 [facility] Comment on above: Performed By: #### C BC ####[facility] Yapiuvtyys8[address] [place] [phone]. Areli Yousif CT CSPINE WO CONon 3 CT CSPINE WO CON Normal The [facility] CT STROKE HEAD WOon 10-07-19 CT STROKE HEAD WO Normal The [facility] Covid-19 PCR ([facility])on SARS-CoV-2 (COVID-19) RNA MANSI+probe Ql (Unsp spec) Not detected Normal NOT DETECTED The [facility] Comment on above: Result Comment: When [...] for this test is supported by the [place] of Health and Human Service's declaration that [...] longer be used). Performed By: #### C VDTB ####[facility] Wxqdmxxvjh27[address] [place], [place] [address]Dr. Areli Yousif INFLUENZA A AND B AGon 10-07 [facility] SEE BELOW Normal [facility] Comment on above: Result Comment: Nega tive for Flu A protein angiten. Infection due to Flu A cannot be ruled out. Flu A angiten in the sample may be below the detection limit of the test. Performed By: #### I NFLUAB ####[facility] Uwhtoqtofk[address] [place], [place] [address]Dr. Areli Yousif INFLUBNEGH SEE BELOW Normal [facility] Comment on above: Result Comment: Nega tive for Flu B protein antigen. Infection due to Flu B cannot be ruled out. Flu B antigen in the sample may be below the detection limit of the test. Performed By: #### I NFLUAB ####[facility] Tzodycxhai[address] [place], [place] [address]Dr. Areli Yousif INFLUENZA A AG Negative Normal NEGATIVE SEE COMMENT [facility] Comment on above: Performed By: #### I NFLUAB ####[facility] Ivslazqlrb[address] [place], [place] [address]Dr. Areli [facility] INFLUENZA B AG Negative Normal NEGATIVE SEE COMMENT [facility] Comment on above: Performed By: #### I NFLUAB ####[facility] Kbelzqrzbl[address] [place], [place] [address]Dr. Areli Yousif POINT OF CARE GLUCOSEon 01-0 Glucose [Mass/Vol] 263 mg/dL Critically high 74-106 [facility] Comment on above: Performed By: #### P OCGLUC ####[facility] Tjngttdswc79[address] [place] [address]Dr. Areli Yousif PROF CHEM 8 (BAS METB)on Anion gap [Moles/Vol] 17.2 mmol/L Normal [facility] Comment on above: Performed By: #### B MP ####[facility] Sqxhkuleqq8[address] [place] [address]Dr. Areli Yousif Calcium [Mass/Vol] 9.2 mg/dL Normal 8.5-10.1 [facility] Comment on above: Performed By: #### B MP ####[facility] Uycuczaxci[address] [place], [place] [address]Dr. rAeli Yousif Chloride [Moles/Vol] 104 mmol/L Normal 98-107 [facility] Comment on above: Performed By: #### B MP ####[facility] Wsjfhbpiop8362 [place] [address]Dr. Areli Yousif CO2 [Moles/Vol] 19.1 mmol/L Critically low 21.0-32.0 [facility] Comment on above: Performed By: #### B MP ####[facility] Ymfflohpcj[address] [place], [place] [address]Dr. Areli Yousif Creatinine [Mass/Vol] 1.29 mg/dL Normal 0.70-1.30 [facility] Comment on above: Performed By: #### B MP ####[facility] Ylgyvqqnfe45[address] [place] [address]Dr. Areli Yousif EGFR-AF MOSOTHO >60 Normal >=60 [facility] Comment on above: Performed By: #### B MP ####[facility] Falpvhefvk32[address] [place] [address]Dr. Areli Yousif EGFR-NON AF [place] 55 mL/min/1.73m2 Critically low >=60 [facility] Comment on above: Performed By: #### B MP ####[facility] Rdlldnjade0242 [place] [phone]. Areli Yousif Glucose [Mass/Vol] 165 mg/dL Critically high 74-106 [facility] Comment on above: Performed By: #### B MP ####[facility] Qkleerxrmi2626 [place] [phone]. Areli Yousif Potassium [Moles/Vol] 4.3 mmol/L Normal 3.5-5.1 [facility] Comment on above: Performed By: #### B MP ####[facility] Iluwsqlkat35[address] [place], [place] [address]Dr. Areli Yousif Sodium [Moles/Vol] 136 mmol/L Normal 136-145 [facility] Comment on above: Performed By: #### B MP ####[facility] Xmphcfijot[address] [place], [place] [address]Dr. Areli Benja Urea nitrogen [Mass/Vol] 43.0 mg/dL Critically high 7.0-18.0 [facility] Comment on above: Performed By: #### B MP ####[facility] Zrzyvpwmzy[address] [place], [place] [address]Dr. Areli Benja Urea nitrogen/Creatinine [Mass ratio] 33.3 mg/mg Normal [facility] Comment on above: Performed By: #### B MP ####[facility] Kavyjmqatx9[address] [place], [place] [address]Dr. Areli Benja CBC AUTO DIFFon 10-06-2022 BASO # 0.0 103/ul Normal 0.0-0.1 [facility] Comment on above: Performed By: #### C BC ####[facility] Oydofkcgla45[address] [place] [address]Dr. Tabbytulio Yousif Basophils/100 WBC (Bld) 0.5 % Normal 0.2-2.0 [facility] Comment on above: Performed By: #### C BC ####[facility] Yrucioykrb[address] [place], [place] [address]Dr. Areli Yousif EO # 0.2 103/ul Normal 0.0-0.7 [facility] Comment on above: Performed By: #### C BC ####[facility] Ssvuazfkpx39[address] [place] [address]Dr. Areli Yousif Eosinophils/100 WBC (Bld) 2.8 % Normal 0.9-7.0 [facility] Comment on above: Performed By: #### C BC ####[facility] Inrfwlcfcp8132 [place] [address]Dr. Areli Yousif Erythrocyte distribution width (RBC) [Ratio] 13.4 % Normal 11.0-15.0 [facility] Comment on above: Performed By: #### C BC ####[facility] Yseeylyluy[address] [place], [place] [address]Dr. Areli Yousif Hematocrit (Bld) [Volume fraction] 33.6 % Critically low 42.0-54.0 [facility] Comment on above: Performed By: #### C BC ####[facility] Ryutxzyfww[address] [place], [place] [address]Dr. Areli Yousif Hemoglobin (Bld) [Mass/Vol] 11.2 g/dL Critically low 14.0-18.0 [facility] Comment on above: Performed By: #### C BC ####[facility] Aesmpspyql[address] [place], [place] [address]Dr. Areli Yousif IG # 0.04 10e3/ul Critically high 0.00-0.03 [facility] Comment on above: Performed By: #### C BC ####[facility] Wwaaicpgnj[address] [place], [place] [address]Dr. Areli Yousif IG % 0.5 % Normal 0.0-0.5 [facility] Comment on above: Performed By: #### C BC ####[facility] Fcqpsmrjzo[address] [place], [place] [address]Dr. Areli Yousif LYMPH # 3.1 103/ul Normal 1.2-3.8 [facility] Comment on above: Performed By: #### C BC ####[facility] Qzrmrqagqf4[address] [place], [place] [address]Dr. Areli Yousif Lymphocytes/100 WBC (Bld) 36.1 % Normal 20.5-60.0 [facility] Comment on above: Performed By: #### C BC ####[facility] Kcurqxfruv17[address] [place] [phone]. Areli Yousif MANUAL DIFF REQ NO Normal [facility] Comment on above: Performed By: #### C BC ####[facility] Qqngpbsrrz1053 [place] [phone]. Areli Yousif MCH (RBC) [Entitic mass] 29.2 pg Normal 25.9-34.0 [facility] Comment on above: Performed By: #### C BC ####[facility] Jelmddwwlp6540 [place] [phone]. Areli Yousif MCHC (RBC) [Mass/Vol] 33.3 g/dL Normal 29.9-35.2 [facility] Comment on above: Performed By: #### C BC ####[facility] Qnkdakdsgu[address] [place], [place] [address]Dr. Areli Yousif MCV (RBC) [Entitic vol] 87.5 fL Normal 80.0-94.0 [facility] Comment on above: Performed By: #### C BC ####[facility] E[address]kljfs[address] [place], [place] [address]Dr. Areli Yousif MONO # 0.5 103/ul Normal 0.3-0.8 [facility] Comment on above: Performed By: #### C BC ####[facility] Auofhunmkw[address] [place], [place] [address]Dr. Areli Yousif Monocytes/100 WBC (Bld) 6.2 % Normal 1.7-12.0 [facility] Comment on above: Performed By: #### C BC ####[facility] Tjlwkvahbz[address] [place], [place] [address]Dr. Areli Yousif NEUT # 4.6 103/ul Normal 1.4-6.5 [facility] Comment on above: Performed By: #### C BC ####[facility] Dpsqbvmden[address] [place], [place] [id number]. Areli Yousif Neutrophils/100 WBC (Bld) 53.9 % Normal 43.0-75.0 [facility] Comment on above: Performed By: #### C BC ####[facility] Rltqfkkdtq6005 [place] [phone]. Areli Yousif Platelet mean volume (Bld) [Entitic vol] 10.6 fL Normal 9.5-13.5 [facility] Comment on above: Performed By: #### C BC ####[facility] Bvcofuytmw7837 [place] [phone]. Areli Yousif PLT 314 103/ul Normal 150-450 [facility] Comment on above: Performed By: #### C BC ####[facility] Miujibwitd5986 [place] [phone]. Areli Yousif RBC 3.84 106/ul Critically low 4.70-6.10 [facility] Comment on above: Performed By: #### C BC ####[facility] Kkummuspko5656 [place] [address]Dr. Areli Yousif WBC 8.6 103/ul Normal 4.0-11.0 [facility] Comment on above: Performed By: #### C BC ####[facility] Zhtdkpwrrl4994 [place] [phone]. Areli Yousif POINT OF CARE GLUCOSEon Glucose [Mass/Vol] 249 mg/dL Critically high -106 [facility] Comment on above: Performed By: #### P OCGLUC ####[facility] Ymhkmqvvne3372 [place] [address]Dr. Areli Yousif Glucose [Mass/Vol] 443 mg/dL Critically high 74-106 [facility] Comment on above: Performed By: #### P OCGLUC ####[facility] Uidvpuuckv8100 [place] [address]Dr. Areli Yousif Glucose [Mass/Vol] 311 mg/dL Critically high -106 [facility] Comment on above: Performed By: #### P OCGLUC ####[facility] Lijimmjqjx5441 [place] [address]Dr. Areli Yousif Glucose [Mass/Vol] 241 mg/dL Critically high -106 [facility] Comment on above: Performed By: #### P OCGLUC ####[facility] Sjfsojmezw79[address] [place] [address]Dr. Areli Yousif PROF CHEM 8 (BAS METB)on Anion gap [Moles/Vol] 15.2 mmol/L Normal Th [facility] Comment on above: Performed By: #### B MP ####[facility] Fmhvfyydwn9581 [place] [address]Dr. Areli Yousif Calcium [Mass/Vol] 8.5 mg/dL Normal 8.5-10.1 [facility] Comment on above: Performed By: #### B MP ####[facility] Uubjpeeggl8[address] [place], [place] [address]Dr. Areli Yousif Chloride [Moles/Vol] 105 mmol/L Normal 98-107 [facility] Comment on above: Performed By: #### B MP ####[facility] Ozqlitfzaj010[address] [place], [place] [address]Dr. Areli Yousif CO2 [Moles/Vol] 20.0 mmol/L Critically low 21.0-32.0 [facility] Comment on above: Performed By: #### B MP ####[facility] Pubngjrzve6367[address] [place], [place] [address]Dr. Areli Yousif Creatinine [Mass/Vol] 1.32 mg/dL Critically high 0.70-1.30 [facility] Comment on above: Performed By: #### B MP ####[facility] Nkbevmonlw5[address] [place], [place] [address]Dr. Areli Yousif EGFR-AF MOSOTHO >60 Normal >=60 [facility] Comment on above: Performed By: #### B MP ####[facility] Aqfpfdbwyl15[address] [place], [place] [address]Dr. Areli Yousif EGFR-NON AF [place] 54 mL/min/1.73m2 Critically low >=60 [facility] Comment on above: Performed By: #### B MP ####[facility] Ipaefuwqkp3439[address] [place], [place] [address]Dr. Areli Yousif Glucose [Mass/Vol] 280 mg/dL Critically high 74-106 [facility] Comment on above: Performed By: #### B MP ####[facility] Ixgxtthtzr0465 [place] [address]Dr. Areli Benja Potassium [Moles/Vol] 4.2 mmol/L Normal 3.5-5.1 [facility] Comment on above: Performed By: #### B MP ####[facility] Ajfahdcwdu1372 [place] [address]Dr. Areli Yousif Sodium [Moles/Vol] 136 mmol/L Normal 136-145 [facility] Comment on above: Performed By: #### B MP ####[facility] Qhjcggegnl257[address] [place], [place] [address]Dr. Areli Benja Urea nitrogen [Mass/Vol] 37.0 mg/dL Critically high 7.0-18.0 [facility] Comment on above: Performed By: #### B MP ####[facility] Vtpowdupvp9[address] [place], [place] [address]Dr. Areli Yousif Urea nitrogen/Creatinine [Mass ratio] 28.0 mg/mg Normal [facility] Comment on above: Performed By: #### B MP ####[facility] Zxppiakxgr313[address] [place], [place] [address]Dr. Areli Benja CBC AUTO DIFFon 10-05-2022 BASO # 0.0 103/ul Normal 0.0-0.1 [facility] Comment on above: Performed By: #### C BC ####[facility] Ucoawbbvzi[address] [place], [place] [address]Dr. Areli Yousif Basophils/100 WBC (Bld) 0.3 % Normal 0.2-2.0 [facility] Comment on above: Performed By: #### C BC ####[facility] Tvgsdspppn[address] [place], [place] [address]Dr. Areli Yousif EO # 0.2 103/ul Normal 0.0-0.7 [facility] Comment on above: Performed By: #### C BC ####[facility] Crxskakpjc459[address] [place], [place] [address]Dr. Areli Yousif Eosinophils/100 WBC (Bld) 2.8 % Normal 0.9-7.0 [facility] Comment on above: Performed By: #### C BC ####[facility] Rhvxjfxeli5453 [place] [address]Dr. Areli Yousif Erythrocyte distribution width (RBC) [Ratio] 13.1 % Normal 11.0-15.0 [facility] Comment on above: Performed By: #### C BC ####[facility] Kqtuuzqemn[address] [place], [place] [address]Dr. Areli Yousif Hematocrit (Bld) [Volume fraction] 33.4 % Critically low 42.0-54.0 [facility] Comment on above: Performed By: #### C BC ####[facility] Xueeitjlcg398[address] [place], [place] [address]Dr. Areli Yousif Hemoglobin (Bld) [Mass/Vol] 11.0 g/dL Critically low 14.0-18.0 [facility] Comment on above: Performed By: #### C BC ####[facility] Btnjahtdxb857[address] [place], [place] [address]Dr. Areli Benja IG # 0.03 10e3/ul Normal 0.00-0.03 [facility] Comment on above: Performed By: #### C BC ####[facility] Tjqyxhuelb[address] [place], [place] [address]Dr. Areli Yousif IG % 0.3 % Normal 0.0-0.5 [facility] Comment on above: Performed By: #### C BC ####[facility] Uahvyhootp[address] [place], [place] [address]Dr. Areli Benja LYMPH # 3.5 103/ul Normal 1.2-3.8 [facility] Comment on above: Performed By: #### C BC ####[facility] Vgehejxlwf5499[address] [place], [place] [address]Dr. Tabbytulio Yousif Lymphocytes/100 WBC (Bld) 40.4 % Normal 20.5-60.0 [facility] Comment on above: Performed By: #### C BC ####[facility] Whcvynegge280[address] [place], [place] [address]Dr. Areli Yousif MANUAL DIFF REQ NO Normal [facility] Comment on above: Performed By: #### C BC ####[facility] Uarfntkobt0455 [place] [address]Dr. Areli Yousif MCH (RBC) [Entitic mass] 28.7 pg Normal 25.9-34.0 [facility] Comment on above: Performed By: #### C BC ####[facility] Lsiiqgshyw0553 [place] [address]Dr. Areli Yousif MCHC (RBC) [Mass/Vol] 32.9 g/dL Normal 29.9-35.2 [facility] Comment on above: Performed By: #### C BC ####[facility] Mdjfqvxvmt39[address] [place], [place] [address]DrDenae Yousif MCV (RBC) [Entitic vol] 87.2 fL Normal 80.0-94.0 [facility] Comment on above: Performed By: #### C BC ####[facility] Uirnyfrzro[address] [place], [place] [address]DrDenae Yousif MONO # 0.5 103/ul Normal 0.3-0.8 [facility] Comment on above: Performed By: #### C BC ####[facility] Vlpukorazk[address] [place], [place] [address]DrDenae Yousif Monocytes/100 WBC (Bld) 5.8 % Normal 1.7-12.0 [facility] Comment on above: Performed By: #### C BC ####[facility] Fphcedmekv[address] [place], [place] [address]DrDenae Yousif NEUT # 4.3 103/ul Normal 1.4-6.5 [facility] Comment on above: Performed By: #### C BC ####[facility] Nhkdwwwvqr456[address] [place], [place] [address]DrDenae Yousif Neutrophils/100 WBC (Bld) 50.4 % Normal 43.0-75.0 [facility] Comment on above: Performed By: #### C BC ####[facility] Ckfnuqapnb[address] [place], [place] [address]DrDenae Yousif Platelet mean volume (Bld) [Entitic vol] 10.5 fL Normal 9.5-13.5 [facility] Comment on above: Performed By: #### C BC ####[facility] Aqwtolntde7320 [place] [phone]. Aerli Yousif PLT 320 103/ul Normal 150-450 [facility] Comment on above: Performed By: #### C BC ####[facility] Lgyyunqfha6825 [place] [phone]. Areli Yousif RBC 3.83 106/ul Critically low 4.70-6.10 [facility] Comment on above: Performed By: #### C BC ####[facility] Vmoupbvhcx2230 [place] [phone]. Areli Yousif WBC 8.6 103/ul Normal 4.0-11.0 [facility] Comment on above: Performed By: #### C BC ####[facility] Ursetramwq0503 [place] [phone]. Tabbytulio Bejna CULTURE URINEon 10-05-2022 CULTURE URINE Normal [facility] Comment on above: Performed By: #### U RCX ####[facility] Svmchypqve6141 [place] [phone]. Areli Yousif POINT OF CARE GLUCOSEon Glucose [Mass/Vol] 266 mg/dL Critically high 74-106 [facility] Comment on above: Performed By: #### P OCGLUC ####[facility] Uyfiooohes0049 [place] [phone]. Areli Yousif Glucose [Mass/Vol] 320 mg/dL Critically high 74-106 [facility] Comment on above: Performed By: #### P OCGLUC ####[facility] Eevswkinqa4721 [place] [phone]. Tabbytulio Benja Glucose [Mass/Vol] 282 mg/dL Critically high 74-106 [facility] Comment on above: Performed By: #### P OCGLUC ####[facility] Fusvnvdzvx[address] [place] [id number]. Areli Yousif PROF CHEM 8 (BAS METB)on Anion gap [Moles/Vol] 16.2 mmol/L Normal Th [facility] Comment on above: Performed By: #### B MP ####[facility] Svdxelwtag[address] [place] [address]Dr. Tabbytulio Yousif Calcium [Mass/Vol] 8.7 mg/dL Normal 8.5-10.1 [facility] Comment on above: Performed By: #### B MP ####[facility] Amlnckoibr[address] [place] [address]Dr. Areli Yousif Chloride [Moles/Vol] 105 mmol/L Normal 98-107 [facility] Comment on above: Performed By: #### B MP ####[facility] Yhooccwuey[address] [place], [place] [address]Dr. Tabbytulio Benja CO2 [Moles/Vol] 19.1 mmol/L Critically low 21.0-32.0 [facility] Comment on above: Performed By: #### B MP ####[facility] Sznadtvufh[address] [place], [place] [address]Dr. Areli Yousif Creatinine [Mass/Vol] 0.96 mg/dL Normal 0.70-1.30 [facility] Comment on above: Performed By: #### B MP ####[facility] Pegicyhbby[address] [place], [place] [address]Dr. Areli Yousif EGFR-AF MOSOTHO >60 Normal >=60 [facility] Comment on above: Performed By: #### B MP ####[facility] Qbfsamhjro7[address] [place] [address]Dr. Areli Yousif EGFR-NON AF MOSOTHO >60 Normal >=60 [facility] Comment on above: Performed By: #### B MP ####[facility] Cezagvnbjx[address] [place] [address]Dr. Areli Yousif Glucose [Mass/Vol] 139 mg/dL Critically high 74-106 [facility] Comment on above: Performed By: #### B MP ####[facility] Byfrxmwnqd9[address] [place], [place] [address]Dr. Areli Yousif Potassium [Moles/Vol] 4.3 mmol/L Normal 3.5-5.1 [facility] Comment on above: Performed By: #### B MP ####[facility] Lxvdyzpgfm6037 [place] [address]Dr. Areli Yousif Sodium [Moles/Vol] 136 mmol/L Normal 136-145 [facility] Comment on above: Performed By: #### B MP ####[facility] Esevlzcibl[address] [place], [place] [address]Dr. Areli Yousif Urea nitrogen [Mass/Vol] 26.0 mg/dL Critically high 7.0-18.0 [facility] Comment on above: Performed By: #### B MP ####[facility] Fgdtjlfnhl289[address] [place], [place] [address]Dr. Areli Benja Urea nitrogen/Creatinine [Mass ratio] 27.1 mg/mg Normal [facility] Comment on above: Performed By: #### B MP ####[facility] Hayufbaoqv[address] [place], [place] [address]Dr. Areli Benja CBC AUTO DIFFon 10-04-2022 BASO # 0.1 103/ul Normal 0.0-0.1 [facility] Comment on above: Performed By: #### C BC ####[facility] Opddhcwynf67[address] [place], [place] [address]Dr. Areli Benja Basophils/100 WBC (Bld) 0.5 % Normal 0.2-2.0 [facility] Comment on above: Performed By: #### C BC ####[facility] Ryxixjroiu[address] [place], [place] [address]Dr. Areli Yousif EO # 0.3 103/ul Normal 0.0-0.7 [facility] Comment on above: Performed By: #### C BC ####[facility] Nygpxppdyr13[address] [place], [place] [address]Dr. Areli Benja Eosinophils/100 WBC (Bld) 3.1 % Normal 0.9-7.0 [facility] Comment on above: Performed By: #### C BC ####[facility] Utunztmxfl866[address] [place], [place] [address]Dr. Areli Benja Erythrocyte distribution width (RBC) [Ratio] 13.2 % Normal 11.0-15.0 [facility] Comment on above: Performed By: #### C BC ####[facility] Upfmsjbpqg10[address] [place] [address]DrDenae Yousif Hematocrit (Bld) [Volume fraction] 32.0 % Critically low 42.0-54.0 [facility] Comment on above: Performed By: #### C BC ####[facility] Jndittpfds[address] [place] [address]DrDenae Yousif Hemoglobin (Bld) [Mass/Vol] 10.7 g/dL Critically low 14.0-18.0 [facility] Comment on above: Performed By: #### C BC ####[facility] Njrittmswm[address] [place], [place] [address]DrDenae Yousif IG # 0.04 10e3/ul Critically high 0.00-0.03 [facility] Comment on above: Performed By: #### C BC ####[facility] Jrxwtdnssi999[address] [place], [place] [address]DrDenae Yousif IG % 0.4 % Normal 0.0-0.5 [facility] Comment on above: Performed By: #### C BC ####[facility] Vrzfwhaqor[address] [place], [place] [address]DrDenae Yousif LYMPH # 3.6 103/ul Normal 1.2-3.8 [facility] Comment on above: Performed By: #### C BC ####[facility] Tmoxenjwaz[address] [place], [place] [address]DrDenae Yousif Lymphocytes/100 WBC (Bld) 33.7 % Normal 20.5-60.0 [facility] Comment on above: Performed By: #### C BC ####[facility] Lovhqwuipy[address] [place], [place] [address]DrDenae Yousif MANUAL DIFF REQ NO Normal [facility] Comment on above: Performed By: #### C BC ####[facility] Rsvwfoortj8488 [place] [address]DrDenae Yousif MCH (RBC) [Entitic mass] 29.2 pg Normal 25.9-34.0 [facility] Comment on above: Performed By: #### C BC ####[facility] Dncledmwpy2366 [place] [address]Dr. Areli Yousif MCHC (RBC) [Mass/Vol] 33.4 g/dL Normal 29.9-35.2 [facility] Comment on above: Performed By: #### C BC ####[facility] Kobeklhswn1495 [place] [address]DrDenae Yousif MCV (RBC) [Entitic vol] 87.2 fL Normal 80.0-94.0 [facility] Comment on above: Performed By: #### C BC ####[facility] Ladkfckkop7[address] [place], [place] [address]DrDenae Yousif MONO # 0.6 103/ul Normal 0.3-0.8 [facility] Comment on above: Performed By: #### C BC ####[facility] Seljogmkja4825[address] [place], [place] [address]Dr. Areli Yousif Monocytes/100 WBC (Bld) 6.0 % Normal 1.7-12.0 [facility] Comment on above: Performed By: #### C BC ####[facility] Wxyhqxljvk[address] [place], [place] [address]DrDenae Yousif NEUT # 6.0 103/ul Normal 1.4-6.5 [facility] Comment on above: Performed By: #### C BC ####[facility] Itqcihosqh[address] [place], [place] [address]Dr. Areli Yousif Neutrophils/100 WBC (Bld) 56.3 % Normal 43.0-75.0 [facility] Comment on above: Performed By: #### C BC ####[facility] Rkbzfcftbj[address] [place], [place] [address]DrDenae Yousif Platelet mean volume (Bld) [Entitic vol] 10.4 fL Normal 9.5-13.5 [facility] Comment on above: Performed By: #### C BC ####[facility] Degbxnwaya8[address] [place], [place] [address]Dr. Areli Yousif PLT 306 103/ul Normal 150-450 [facility] Comment on above: Performed By: #### C BC ####[facility] Wnoperwljb7436 [place] [id number]. Areli Yousif RBC 3.67 106/ul Critically low 4.70-6.10 [facility] Comment on above: Performed By: #### C BC ####[facility] Ikrtwgjoup5[address] [place] [address]Dr. Areli Yousif WBC 10.6 103/ul Normal 4.0-11.0 [facility] Comment on above: Performed By: #### C BC ####[facility] Dbzrhzvhtt36[address] [place] [address]Dr. Aerli Yousif FREE T3on 10-04-2022 FREE T3 1.74 pg/mlL Critically low 2.18-3.98 [facility] Comment on above: Performed By: #### F T3, TSH ####[facility] Nuotnylqqz26[address] [place] [address]Dr. Areli Yousif FREE T4on 10-04-2022 Free T4 [Mass/Vol] 1.25 ng/dL Normal 0.76-1.46 The [facility] Comment on above: Performed By: #### V ITAD, FT4, B12FOL, FETIBC ####[facility] Lhxvrcqcqy7[address] [place] [address]Dr. Areli Yousif GLYCOHEMOGLOBIN A1Con 2021 ADA RECOMMENDATION SEE BELOW Normal The [facility] Comment on above: Result Comment: ADA RECOMMENDED LIMIT 4.0 - 6.0 ADA THERAPEUTIC TARGET < 7.0 ACTION SUGGESTED > 7.0 Performed By: #### A 1C ####[facility] Wnirnkdaax9[address] [place] [address]Dr. Areli Yousif Glucose [Mass/Vol] 212 mg/dL Normal The [facility] Comment on above: Performed By: #### A 1C ####[facility] Uqvgfnswbr0980 [place] [address]Dr. Areli Yousif HbA1c (Bld) [Mass fraction] 9.0 % Critically high 4.5-6.2 [facility] Comment on above: Performed By: #### A 1C ####[facility] Uyrcejhlbo[address] [place] [address]Dr. Areli Yousfi IRON AND TIBCon 10-04-2022 % SATURATION 24.1 % Normal [facility] Comment on above: Performed By: #### V ITAD, FT4, B12FOL, FETIBC ####[facility] Ulndhtemnp05[address] [place] [address]Dr. rAeli Yousif Iron [Mass/Vol] 47.0 ug/dL Critically low 65.0-175.0 [facility] Comment on above: Performed By: #### V ITAD, FT4, B12FOL, FETIBC ####[facility] Nldtrwlqpq5312 [place] [address]Dr. Areli Yousif TIBC DIRECT 195.0 ug/dL Critically low 250.0-450.0 [facility] Comment on above: Performed By: #### V ITAD, FT4, B12FOL, FETIBC ####[facility] Aarabvuhlc[address] [place], [place] [address]Dr. Areli Yousif LACTATE/LACTIC ACIDon 2021 Lactate [Moles/Vol] 0.9 mmol/L Normal 0.4-1.9 [facility] Comment on above: Performed By: #### L ACT ####[facility] Vlkghzxtls08[address] [place] [address]Dr. Areli Yousif POINT OF CARE GLUCOSEon 09-06 Glucose [Mass/Vol] 215 mg/dL Critically high -106 [facility] Comment on above: Performed By: #### P OCGLUC ####[facility] Vasbgzmsao[address] [place] [address]Dr. Areli Yousif Glucose [Mass/Vol] 204 mg/dL Critically high -106 [facility] Comment on above: Performed By: #### P OCGLUC ####[facility] Qcydgfmxfz3611 [place] [address]Dr. Areli Yousif Glucose [Mass/Vol] 235 mg/dL Critically high -106 [facility] Comment on above: Performed By: #### P OCGLUC ####[facility] Gcycczcqgy1034 [place] [address]Dr. Areli Yousif PROF CHEM 8 (BAS METB)on Anion gap [Moles/Vol] 15.2 mmol/L Normal Th [facility] Comment on above: Performed By: #### B MP ####[facility] Hgznuqgmqt8[address] [place], [place] [address]Dr. Areli Yousif Calcium [Mass/Vol] 8.8 mg/dL Normal 8.5-10.1 [facility] Comment on above: Performed By: #### B MP ####[facility] Loirhytudx404[address] [place], [place] [address]Dr. Areli Yousif Chloride [Moles/Vol] 104 mmol/L Normal 98-107 [facility] Comment on above: Performed By: #### B MP ####[facility] Dbdcirdmlq[address] [place], [place] [address]Dr. Areli Yousif CO2 [Moles/Vol] 20.1 mmol/L Critically low 21.0-32.0 [facility] Comment on above: Performed By: #### B MP ####[facility] Oobwvqwihx394[address] [place], [place] [address]Dr. Areli Yousif Creatinine [Mass/Vol] 0.96 mg/dL Normal 0.70-1.30 [facility] Comment on above: Performed By: #### B MP ####[facility] Auwafaghxh[address] [place], [place] [address]Dr. Areli Yousif EGFR-AF MOSOTHO >60 Normal >=60 [facility] Comment on above: Performed By: #### B MP ####[facility] Esmmcslxvb057[address] [place], [place] [address]Dr. Areli Yousif EGFR-NON AF MOSOTHO >60 Normal >=60 [facility] Comment on above: Performed By: #### B MP ####[facility] Dsrbnfupvf18[address] [place], [place] [address]Dr. Areli Yousif Glucose [Mass/Vol] 129 mg/dL Critically high 74-106 [facility] Comment on above: Performed By: #### B MP ####[facility] Agtbavczjz380[address] [place], [place] [address]Dr. Areli Yousif Potassium [Moles/Vol] 4.3 mmol/L Normal 3.5-5.1 [facility] Comment on above: Performed By: #### B MP ####[facility] Npskxkhtcm[address] [place], [place] [address]Dr. Areli Yousif Sodium [Moles/Vol] 135 mmol/L Critically low 136-145 Th [facility] Comment on above: Performed By: #### B MP ####[facility] Vkdwuprooe[address] [place], [place] [address]Dr. Areli Yousif Urea nitrogen [Mass/Vol] 29.0 mg/dL Critically high 7.0-18.0 [facility] Comment on above: Performed By: #### B MP ####[facility] Hweqqptjem[address] [place], [place] [address]Dr. Areli Yousif Urea nitrogen/Creatinine [Mass ratio] 30.2 mg/mg Normal [facility] Comment on above: Performed By: #### B MP ####[facility] Wfagoohzxf210[address] [place], [place] [address]Dr. Areli Yousif TSHon 10-04-2022 TSH 3.433 uIU/mL Normal 0.358-3.740 [facility] Comment on above: Performed By: #### F T3, TSH ####[facility] Htknnmmdia[address] [place], [place] [address]Dr. Areli Yousif VIT B12 AND FOLATEon 022 Cobalamin (Vitamin B12) [Mass/Vol] 263.0 pg/mL Normal 193.0-986.0 [facility] Comment on above: Performed By: #### V ITAD, FT4, B12FOL, FETIBC ####[facility] Btyikqqobp[address] [place], [place] [address]Dr. Areli Yousif FOLATE 21.40 ng/mL Normal 8.60-58.90 [facility] Comment on above: Performed By: #### V ITAD, FT4, B12FOL, FETIBC ####[facility] Mpylehikaz0[address] [place] [id number]. Areli Yousif VITAMIN D 25 OHon 10-04-2022 VIT D 25-OH 41.6 ng/mL Normal [facility] Comment on above: Performed By: #### V ITAD, FT4, B12FOL, FETIBC ####[facility] Cqdauifqnu5491 [place] [id number]. Areli Yousif VIT D RANGES SEE BELOW Normal [facility] Comment on above: Result Comment: <20 ng/mL Vit D deficient 20 - <30 ng/mL Vit D insufficient 30 - 100 ng/mL Vit D sufficient >100 ng/mL Potential Toxicity Performed By: #### V ITAD, FT4, B12FOL, FETIBC ####[facility] Zxxqhoixff9312 [place] [id number]. Tabbytulio Yousif CARDIAC ASHLEY ADMITon 022 CK [Catalytic activity/Vol] 49 U/L Normal 39-308 [facility] Comment on above: Performed By: #### Reed GAMBOA, CMP ####[facility] Lyozncyqcw8368 [place] [phone]. Areli Yousif CK.MB [Mass/Vol] 1.02 ng/mL Normal <=3.60 The [facility] Comment on above: Performed By: #### Reed GAMBOA, CMP ####[facility] Xzcwzzrvng95[address] [place] [address]Dr. Areli Benja HSTROP 12.8 pg/mL Normal 4.0-76.1 [facility] Comment on above: Result Comment: CUT- OFF POINTS HAVE BEEN ESTABLISHED BASED ON THE FOURTH UNIVERSAL DEFINITIONS OF MYOCARDIALINFARCTION. THE UPPER REFERENCE LIMIT (URL) OF TROPONIN, DEFINED THE 99TH PERCENTILE OFcTnI DISTRIBUTION IN A REFERENCE POPULATION, HAS BEEN CONFIRMED THE DECISION THRESHOLDFOR AK DIAGNOSIS. Performed By: #### Reed GAMBOA, CMP ####[facility] Hyyflfhpbu7710 [place] [phone]. Areli Yousif LAWRENCE 75 ng/mL Normal 16-96 [facility] Comment on above: Performed By: #### Reed GAMBOA, CMP ####[facility] Rayslnuglj0027 [place] [id number]. Areli Yousif CBC AUTO DIFFon 10-03-2022 BASO # 0.0 103/ul Normal 0.0-0.1 [facility] Comment on above: Performed By: #### C BC ####[facility] Mfpeczeruc[address] [place], [place] [address]Dr. Areli Benja Basophils/100 WBC (Bld) 0.4 % Normal 0.2-2.0 [facility] Comment on above: Performed By: #### C BC ####[facility] Pomoidgwro[address] [place], [place] [address]Dr. Areli Yousif EO # 0.4 103/ul Normal 0.0-0.7 [facility] Comment on above: Performed By: #### C BC ####[facility] Jjovqvhsah[address] [place], [place] [address]Dr. Tabbytulio Yousif Eosinophils/100 WBC (Bld) 3.7 % Normal 0.9-7.0 [facility] Comment on above: Performed By: #### C BC ####[facility] Exnsfyiqag318[address] [place], [place] [address]Dr. Areli Yousif Erythrocyte distribution width (RBC) [Ratio] 13.5 % Normal 11.0-15.0 [facility] Comment on above: Performed By: #### C BC ####[facility] Hcwyuufsxv[address] [place], [place] [address]Dr. Areli Yousif Hematocrit (Bld) [Volume fraction] 33.7 % Critically low 42.0-54.0 [facility] Comment on above: Performed By: #### C BC ####[facility] Dhpwiwqlpr[address] [place], [place] [address]Dr. Areli Yousif Hemoglobin (Bld) [Mass/Vol] 11.2 g/dL Critically low 14.0-18.0 [facility] Comment on above: Performed By: #### C BC ####[facility] Qzzqaihiee[address] [place], [place] [address]Dr. Areli Yousif IG # 0.04 10e3/ul Critically high 0.00-0.03 [facility] Comment on above: Performed By: #### C BC ####[facility] Jvfpahslpp7984 [place] [id number]. Areli Yousif IG % 0.4 % Normal 0.0-0.5 [facility] Comment on above: Performed By: #### C BC ####[facility] Ghwnbjaazr6036 [place] [id number]. Areli Yousif LYMPH # 2.9 103/ul Normal 1.2-3.8 [facility] Comment on above: Performed By: #### C BC ####[facility] Aiqmqafvya5034 [place] [address]Dr. Tabbytulio Yousif Lymphocytes/100 WBC (Bld) 29.5 % Normal 20.5-60.0 [facility] Comment on above: Performed By: #### C BC ####[facility] Qmnwklrhni11[address] [place] [address]Dr. Areli Yousif MANUAL DIFF REQ NO Normal [facility] Comment on above: Performed By: #### C BC ####[facility] Lsddwpefwd8136 [place] [phone]. Areli Yousif MCH (RBC) [Entitic mass] 29.8 pg Normal 25.9-34.0 [facility] Comment on above: Performed By: #### C BC ####[facility] Kbdcfywded0931 [place] [id number]. Areli Yousif MCHC (RBC) [Mass/Vol] 33.2 g/dL Normal 29.9-35.2 [facility] Comment on above: Performed By: #### C BC ####[facility] Fmfjsuqqna5441 [place] [phone]. Areli Yousif MCV (RBC) [Entitic vol] 89.6 fL Normal 80.0-94.0 [facility] Comment on above: Performed By: #### C BC ####[facility] Nidxmngrgv[address] [place], [place] [address]Dr. Tabbytulio Yousif MONO # 0.6 103/ul Normal 0.3-0.8 [facility] Comment on above: Performed By: #### C BC ####[facility] Vvyvzmefjc4358 [place] [id number]. Areli Yousif Monocytes/100 WBC (Bld) 6.0 % Normal 1.7-12.0 [facility] Comment on above: Performed By: #### C BC ####[facility] Grbddcffzl8077 [place] [id number]. Areli Yousif NEUT # 5.9 103/ul Normal 1.4-6.5 [facility] Comment on above: Performed By: #### C BC ####[facility] Qmykpzdnhc0281 [place] [phone]. Areli Yousif Neutrophils/100 WBC (Bld) 60.0 % Normal 43.0-75.0 [facility] Comment on above: Performed By: #### C BC ####[facility] Kwidivrpaf5792 [place] [phone]. Areli Yousif Platelet mean volume (Bld) [Entitic vol] 11.2 fL Normal 9.5-13.5 [facility] Comment on above: Performed By: #### C BC ####[facility] Nfdnwubnxa2223 [place] [id number]. Areli Yousif PLT 270 103/ul Normal 150-450 [facility] Comment on above: Performed By: #### C BC ####[facility] Sflpvfbqaw2124 [place] [id number]. Areli Yousif RBC 3.76 106/ul Critically low 4.70-6.10 [facility] Comment on above: Performed By: #### C BC ####[facility] Gtpoyejwrc1783 [place] [phone]. Areli Yousif WBC 9.9 103/ul Normal 4.0-11.0 [facility] Comment on above: Performed By: #### C BC ####[facility] Viqfypdect6242 [place] [phone]. Areli Yousif CULTURE BLOODon 10-03-2022 Microscopic examination of blood, culture Culture Observations: NO GROWTH AT 5 DAYS. Normal [facility] Comment on above: Performed By: #### B LDCX2 ####[facility] Kbhdhmygrb[address] [place] [address]Dr. Tabbytulio Yousif Performed By: #### B LDCX1 ####[facility] Ozbokiqwhd0674 [place] [address]Dr. Areli Yousif Coding Summaryon 10-03-2022 Coding Summary Normal [facility] Covid-19 PCR (CVDTBH)on 09-06 SARS-CoV-2 (COVID-19) RNA MANSI+probe Ql (Unsp spec) Not detected Normal NOT DETECTED [facility] Comment on above: Result Comment: When [...] for this test is supported by the [employer] of [employer] and Human Service's declaration that [...] be used). Performed By: #### C VDTBH ####[facility] Btztifogdc1847 [place] [address]Dr. Areli Benja ER URINE PROFILEon Bilirubin Ql (U) Negative Normal NEGATIVE The [facility] Comment on above: Performed By: #### JOURDAN RIVERA ####[facility] Fjpomxyfqe[address] [place], [place] [address]Dr. Areli Yousif Clarity (U) CLEAR Normal CLEAR [facility] Comment on above: Performed By: #### JOURDAN RIVERA ####[facility] At[address]ofuodxi[address] [place] [address]Dr. Areli Yousif Color (U) LT. YELLOW Normal YELLOW [facility] Comment on above: Performed By: #### Sid BARKER UMICRO ####[facility] Ozgyiepvuq[address] [place] [address]Dr. Areli BRIGGS A micrscopic examination will be performed if indicated. Normal [facility] Comment on above: Performed By: #### Sid BARKER UMICRO ####[facility] Lgkiqsslgd4560 [place] [address]Dr. Areli Yousif Glucose Ql (U) 100 mg/dl Abnormal NEGATIVE The [facility] Comment on above: Performed By: #### Sid BARKER UMICRO ####[facility] Inkiaqszfo[address] [place], [place] [address]Dr. Areli Yousif Hemoglobin Ql (U) SMALL Abnormal NEGATIVE [facility] Comment on above: Performed By: #### Sid BARKER UMICRO ####[facility] Svwfjficdj[address] [place], [place] [address]Dr. Areli Yousif Ketones Ql (U) Negative Normal NEGATIVE The [facility] Comment on above: Performed By: #### Sid BARKER UMICRO ####[facility] Utatijoetn[address] [place], [place] [address]Dr. Areli Yousif LEUKOCYTES MODERATE Abnormal NEGATIVE [facility] Comment on above: Performed By: #### Sid BARKER UMICRO ####[facility] Jydluthdal[address] [place], [place] [address]Dr. Areli Yousif Nitrite Ql (U) Positive Abnormal NEGATIVE The [facility] Comment on above: Performed By: #### Sid BARKER UMICRO ####[facility] Odsqpnojoa1684 [place] [address]Dr. Areli Yousif pH (U) 5.5 [pH] Normal 5-9 [facility] Comment on above: Performed By: #### Sid BARKER UMICRO ####[facility] Vyuugfjzbb[address] [place], [place] [address]Dr. Areli Yousif Protein (U) [Mass/Vol] 100 mg/dL Abnormal NEGAT TIMOTHY/ TRACE [facility] Comment on above: Performed By: #### JOURDAN RIVERA ####[facility] Gzbnqwxecd3[address] [place] [address]Dr. Areli Yousif SPEC GRAVITY 1.020 Normal 1.005-<=1.02 5 [facility] Comment on above: Performed By: #### JOURDAN RIVERA ####[facility] Jztwpipemt26[address] [place] [address]Dr. Areli Yousif UR MICRO IND INDICATED Normal [facility] Comment on above: Performed By: #### DWIGHT RIVERARO ####[facility] Iigowmumuz27[address] [place] [address]Dr. Areli Yousif Urobilinogen Qn (U) 0.2 {Alyssia'U}/dL Normal 0.2 - 1. 0 [facility] Comment on above: Performed By: #### JOURDAN RIVERA ####[facility] Dwaqglvtqm037[address] [place] [address]Dr. Areli Yousif LACTATE/LACTIC ACIDon 2021 Lactate [Moles/Vol] 2.2 mmol/L Critically high 0.4-1.9 [facility] Comment on above: Performed By: #### L ACT ####[facility] Bjbpviieuw9836 [place] [address]Dr. Areli Yousif Outside Recordson 10-03-2022 Outside Records [id number] 0OTGTIFF [facility] Outside Records [id number]#1.0 [facility] POINT OF CARE GLUCOSEon 09-06 Glucose [Mass/Vol] 280 mg/dL Critically high 74-106 [facility] Comment on above: Performed By: #### P OCGLUC ####[facility] Dwppdfbfjj6086 [place] [address]Dr. Areli Yousif Glucose [Mass/Vol] 246 mg/dL Critically high 74-106 [facility] Comment on above: Performed By: #### P OCGLUC ####[facility] Jiojvyjukf6[address] [place] [id number]. Areli Yousif PROF 14(COMP METB)on 022 Albumin [Mass/Vol] 2.9 g/dL Critically low 3.4-5.[address] [facility] Comment on above: Performed By: #### Reed GAMBOA, CMP ####[facility] Hutengssoy[address] [place] [id number]. Areli Yousif Albumin/Globulin [Mass ratio] 0.8 {ratio} Normal [facility] Comment on above: Performed By: #### Reed GAMBOA, CMP ####[facility] Ukdwvpdkat0999 [place] [address]Dr. Areli Yousif ALP [Catalytic activity/Vol] 77 U/L Normal 46-116 [facility] Comment on above: Performed By: #### Reed GAMBOA, CMP ####[facility] Mslilmgwph4956 [place] [address]Dr. Areli Yousif ALT [Catalytic activity/Vol] 11 U/L Critically low 16-63 [facility] Comment on above: Performed By: #### Reed GAMBOA, CMP ####[facility] Atqrmwmrdi42[address] [place] [id number]. Areli Yousif Anion gap [Moles/Vol] 16.3 mmol/L Normal [facility] Comment on above: Performed By: #### Reed GAMBOA, CMP ####[facility] Vdiwnbwjos39[address] [place] [address]Dr. Areli Yousif AST [Catalytic activity/Vol] 13 U/L Critically low 15-37 [facility] Comment on above: Performed By: #### Reed GAMBOA, CMP ####[facility] Yufzitzpjv2796 [place] [id number]. Areli Yousif Bilirubin [Mass/Vol] 0.2 mg/dL Normal 0.2-1.0 [facility] Comment on above: Performed By: #### Reed GAMBOA, CMP ####[facility] Crnlmeoqvg2498 [place] [address]Dr. Areli Yousif Calcium [Mass/Vol] 9.0 mg/dL Normal 8.5-10.1 [facility] Comment on above: Performed By: #### C BEE, CMP ####[facility] Ulsxjdnidv69[address] [place] [address]Dr. Areli Yousif Chloride [Moles/Vol] 103 mmol/L Normal 98-107 [facility] Comment on above: Performed By: #### C BEE, CMP ####[facility] Gjgoxktajd5532 [place] [address]Dr. Areli Yousif CO2 [Moles/Vol] 20.9 mmol/L Critically low 21.0-32.0 [facility] Comment on above: Performed By: #### C BEE, CMP ####[facility] Sologtrrqh[address] [place], [place] [address]Dr. Areli Yousif Creatinine [Mass/Vol] 1.29 mg/dL Normal 0.70-1.30 [facility] Comment on above: Performed By: #### Reed GAMBOA, CMP ####[facility] Rhddutzpyt[address] [place], [place] [address]Dr. Areli Yousif EGFR-AF MOSOTHO >67 Normal >=60 [facility] Comment on above: Performed By: #### Reed GAMBOA, CMP ####[facility] Gppcfrlvce[address] [place], [place] [address]Dr. Areli Yousif EGFR-NON AF MOSOTHO 55 mL/min/1.73m2 Critically low >=60 [facility] Comment on above: Performed By: #### Reed GAMBOA, CMP ####[facility] Uoqozxlizd[address] [place], [place] [address]Dr. Areli Yousif Globulin (S) [Mass/Vol] 3.7 g/dL Normal [facility] Comment on above: Performed By: #### C BEE, CMP ####[facility] Wtxgeplbya[address] [place], [place] [address]Dr. Areli Yousif Glucose [Mass/Vol] 245 mg/dL Critically high 74-106 T [facility] Comment on above: Performed By: #### C BEE, CMP ####[facility] Ivogyebzot[address] [place], [place] [address]Dr. Areli Yousif Potassium [Moles/Vol] 5.2 mmol/L Critically high 3.5-5.1 [facility] Comment on above: Performed By: #### C BEE, CMP ####[facility] Ecgkkxcqhg[address] [place], [place] [address]Dr. Areli Yousif Protein [Mass/Vol] 6.6 g/dL Normal 6.4-8.2 [facility] Comment on above: Performed By: #### C BEE, CMP ####[facility] Msasxgxvyc04[address] [place] [address]Dr. Areli Yousif Sodium [Moles/Vol] 135 mmol/L Critically low 136-145 Th [facility] Comment on above: Performed By: #### Reed GAMBOA, CMP ####[facility] Ltcjuqmqng[address] [place], [place] [address]Dr. Areli Yousif Urea nitrogen [Mass/Vol] 43.0 mg/dL Critically high 7.0-18.0 [facility] Comment on above: Performed By: #### Reed GAMBOA, CMP ####[facility] Ssygzrckhx[address] [place], [place] [address]Dr. Areli Yousif Urea nitrogen/Creatinine [Mass ratio] 33.3 mg/mg Normal [facility] Comment on above: Performed By: #### Reed GAMBOA, CMP ####[facility] Chkgpqtpmb[address] [place], [place] [address]Dr. Areli Yousif PROTIMEon 10-03-2022 INR Coag (PPP) [Relative time] 1.06 {INR} Normal [facility] Comment on above: Performed By: #### P T, PTT ####[facility] Ykgjrpapmb[address] [place], [place] [address]Dr. Areli Yousif INR GUIDELINES SEE BELOW Normal [facility] Comment on above: Result Comment: LANDON RED INR: 2.0 - 3.0 CONDITIONS NOT LISTED BELOW 2.5 - 3.5 FOR PROSTHETIC HEART VALVE REPLACEMENT 2.5 - 3.5 RECURRENT THROMBOSIS Performed By: #### P T, PTT ####[facility] Bcxutvaubd[address] [place], [place] [address]Dr. Areli Yousif PT Coag (PPP) [Time] 11.4 s Normal 9.0-11.6 The [facility] Comment on above: Performed By: #### P T, PTT ####[facility] Qavftudcyx[address] [place], [place] [address]Dr. Areli Yousif PTTon 10-03-2022 aPTT Coag (Bld) [Time] 25.6 s Normal 22.3-36.2 Th [facility] Comment on above: Performed By: #### P T, PTT ####[facility] Gequmymwxq[address] [place], [place] [address]Dr. Areli Yousif Provider Orderson 10-03-2022 Provider Orders [id number]#1.0 0OTGTIFF Normal [facility] URINE MICROSCOPIC ONLYon BACTERIA LARGE Abnormal NONE SEEN The [facility] Comment on above: Performed By: #### DWIGHT RIVERARO ####[facility] Shqaetwhua5[address] [place], [place] [address]Dr. Areli Yousif Bacteria identified Cx Nom (U) INDICATED Normal [facility] Comment on above: Performed By: #### DWIGHT RIVERARO ####[facility] Znlrzyhzzm[address] [place], [place] [address]Dr. Areli Yousif CAST NONE SEEN Normal NONE SEEN [facility] Comment on above: Performed By: #### Sid BARKER UMICRO ####[facility] Fqmpbhzogh[address] [place], [place] [address]Dr. Areli Yousif Crystals LM Nom (Urine sed) NONE SEEN Normal NONE SEEN [facility] Comment on above: Performed By: #### Sid BARKER UMICRO ####[facility] Lwkvvhwbem[address] [place], [place] [address]Dr. Areli Yousif Epithelial cells LM Ql (Urine sed) FEW Abnormal NONE SEEN /RARE [facility] Comment on above: Performed By: #### Sid BARKER UMICRO ####[facility] Avcfzjwiwz[address] [place], [place] [address]Dr. Areli Yousif MUCOUS TRACE Abnormal NONE SEEN The [facility] Comment on above: Performed By: #### JOURDAN RIVERA ####[facility] Rnfws[address]alq3453 [place], [place] [address]Rf. Areli Yousif RBC 10-20 Abnormal 0-2 [facility] Comment on above: Performed By: #### JOURDAN RIVERA ####[facility] Ouguntwfsk[address]60 [place], [place] [address]Oj. Areli Yousif WBC 20-50 Abnormal NONE SEEN [facility] Comment on above: Performed By: #### JOURDAN RIVERA ####[facility] Mi[address]orvipq0468 [place], [place] [address]Px. Areli Yousif XR CHEST 1 Von 10-03-2022 XR CHEST 1 V Normal [facility] XR HUMERUS RT MIN 2 Von 09-06 XR HUMERUS RT MIN 2 V Normal [facility] XR SHOULDER RT 2V or >on XR SHOULDER RT 2V or > Normal [facility] Outside Recordson 10-01-2022 Outside Records [id number] [facility] [id number]#1.0 [facility] XR shoulder RT min 2V*on XR shoulder RT min 2V* [facility] Other XR shoulder RT min 2V* [facility] Other XR shoulder RT min 2V* [address] [place] [address] [facility] Other XR shoulder RT min 2V* [place], [place] [address] [place] [address] [facility] Other XR shoulder RT min 2V* XRay Report N [facility] Other XR shoulder RT min 2V* [facility] min 2V* Patient: Otilio Suarez MR#: [id number] [facility] Other XR shoulder RT min 2V* 3 No rt [facility] Other XR shoulder RT min 2V* : 1955 Acct:[id number] [facility] Other XR shoulder RT min 2V* Age/Sex: 66 / M A DM Date: 10/01/22 [facility] Other XR shoulder RT min 2V* Loc: XDUCLY Room: Type: REG CLI [facility] Other XR shoulder RT min 2V* Attending Dr: Lorene Norris [facility] Other XR shoulder RT min 2V* Copies to: Ana Norris [facility] Other XR shoulder RT min 2V* Ordering Provider : Ana Norris HYDROGRAPHIC ENGINEER [facility] Other XR shoulder RT min 2V* Date of Service: 10/01/22 [facility] Other XR shoulder RT min 2V* XR/XR shoulder RT min 2V*: Injury [facility] Other XR shoulder RT min 2V* 3 views plain filmright shoulder [facility] Other XR shoulder RT min 2V* HISTORY:Fell inju ring right shoulder. Limited range of motion. [facility] Other XR shoulder RT min 2V* COMPARISON:None [facility] Other XR shoulder RT min 2V* Potential nondisp laced fracture of the greater tuberosity identified. Calcific changes of the [facility] Other XR shoulder RT min 2V* rotator cuff pres ent. No fracture of the distal clavicle identified.Mild degenerative changes. [facility] Other XR shoulder RT min 2V* 0 XR/XR shoulder RT min 2V* [facility] Other XR shoulder RT min 2V* IMPRESSION:Fractu re of distal clavicle. Potential nondisplaced fracture of greater tuberosity. [facility] Other XR shoulder RT min 2V* Calcific tendinop athy of rotator cuff. [facility] Other XR shoulder RT min 2V* Impression dictat ed by: Adalberto Moctezuma M.D.10/01/2022 11:11 AM [facility] Other XR shoulder RT min 2V* Dictation Locatio n: RADIO-PC-12 [facility] Other XR shoulder RT min 2V* Transcribed By: Priscilla HENDRIX 10/01/22 1111 [facility] Other XR shoulder RT min 2V* Dictated By: Adalberto Moctezuma DO 10/01/22 1108 [facility] Other XR shoulder RT min 2V* Signed By: No rt [facility] Other XR shoulder RT min 2V* 10/01/22 1111 [facility] Other XR shoulder RT min 2V* [facility] Main [employer] [address] [place] [address] XRay Report Signed Patient: Otilio Suarez MR#: [id number] 3 : 1955 Acct:[id number] Age/Sex: 66 / M ADM Date: 10/01/22 Loc: XDUCLY Room: [facility] Attending Dr: Ana Norris APRN Copies to: [...] Adalberto Moctezuma M.D.10/01/2022 11:11 AM Dictation Location: [place] [address] Transcribed By: [facility] 10/01/22 1111 Dictated By: Adalberto Moctezuma DO 10/01/22 1108 Signed By: 10/01/22 1111 [facility] Office/Clinic Noteon 022 Office/Clinic Note [facility] Coding Summaryon 09-18-2022 Coding Summary [facility] Recordon 1 11-18-2021 [facility] Record [facility] POCT Glucose Levelon 022 Glucose [Mass/Vol] 283 mg/dL High [address] [place] [address] Comment on above: Performed By: #### 4 [id number] ####[facility] (DEFAULT)[address] [place] [address] Progress Note - Nurseon 09-04 Progress Note - Nurse [facility] Inpatient Clinical Summaryon 09-16-2022 Inpatient Clinical Summary [facility] Inpatient Patient Summaryon 09-16-2022 Inpatient Patient Summary [facility] Outside Recordson 09-16-2022 Outside Records [id number]#1.0 0OTGTIFF [facility] Patient Handouton 09-16-2022 Patient Handout [facility] POCT Glucose Levelon 022 Glucose, POC see comment Invalid Interpretation Code [address] [place] [address] Comment on above: Result Comment: Dupl icate result removed during lab audit. SD 09/11/2022 10:20:39 EST Performed By: #### 4 [id number] ####[facility] (DEFAULT)[address] [place] [address] Glucose, POC see coment Invalid Interpretation Code [address] [place] [address] Comment on above: Result Comment: Dupl icate result removed during lab audit. SD 09/11/2022 10:20:39 EST Performed By: #### 4 [id number] ####[facility] (DEFAULT)[address] [place] [address] Outside Recordson 09-10-2022 Outside Records [id number]#1.0 0OTGTIFF [facility] Outside Recordson 09-01-2022 Outside Records [id number]#1.0 0OTGTIFF [facility] Outside Recordson 08-22-2022 Outside Records [id number]#1.0 0OTGTIFF [facility] Coding Summaryon 08-21-2022 Coding Summary [facility] Progress Note - Provideron 1 10-21-2021 Progress Note - Provider [id number]#1.00 OTGTIFF [facility] Office/Clinic Noteon 022 Office/Clinic Note [facility] Outside Recordson 08-20-2022 Outside Records [id number]#1. 00OTGTIFF [facility] Coding Summaryon 08-19-2022 Coding Summary [facility] Outside Recordson 08-19-2022 Outside Records [id number]#1.0 0OTGTIFF [facility] Phone Message/Callon 022 Phone Message/Call [facility] CULTURE URINEon 08-16-2022 CULTURE URINE Normal [facility] Comment on above: Performed By: #### U RCX ####[facility] [address] [place], [place] [address]LrDenae Areli Yousif BNPon 08-15-2022 Natriuretic peptide B (Bld) [Mass/Vol] 874.0 pg/mL Normal <=900.0 [facility] Comment on above: Performed By: #### C MP, CMADM, BNP ####[facility] Xaeuqdxzgw[address] [place] [address]Dr. Areli Benja CARDIAC ASHELY ADMITon 022 CK [Catalytic activity/Vol] 28 U/L Critically low 39-308 [facility] Comment on above: Performed By: #### C MP, CMADM, BNP ####[facility] Wrqosxvrvu8406 [place] [address]Dr. Areli Yousif CK.MB [Mass/Vol] 1.11 ng/mL Normal <=3.60 The [facility] Comment on above: Performed By: #### C MP, CMADM, BNP ####[facility] Uzsxchqewr50[address] [place] [address]Dr. Areli Benja HSTROP 14.4 pg/mL Normal 4.0-76.1 [facility] Comment on above: Result Comment: CUT- OFF POINTS HAVE BEEN ESTABLISHED BASED ON THE FOURTH UNIVERSAL DEFINITIONS OF MYOCARDIALINFARCTION. THE UPPER REFERENCE LIMIT (URL) OF TROPONIN, DEFINED THE 99TH PERCENTILE OFcTnI DISTRIBUTION IN A REFERENCE POPULATION, HAS BEEN CONFIRMED THE DECISION THRESHOLDFOR AK DIAGNOSIS. Performed By: #### C MP, CMADM, BNP ####[facility] Sesjxtcbpi8082 [place] [address]Dr. Areli Yousif LAWRENCE 63 ng/mL Normal 16-96 [facility] Comment on above: Performed By: #### C MP, CMADM, BNP ####[facility] Ctavgbyiup7553 [place] [address]DrDenae Yousif CBC AUTO DIFFon 08-15-2022 BASO # 0.1 103/ul Normal 0.0-0.1 [facility] Comment on above: Performed By: #### C BC ####[facility] Sgdxdvexhl1483 [place] [address]DrDenae Yousif Basophils/100 WBC (Bld) 0.5 % Normal 0.2-2.0 [facility] Comment on above: Performed By: #### C BC ####[facility] G[address]qbydny[address] [place] [address]Dr. Areli Yousif EO # 0.2 103/ul Normal 0.0-0.7 [facility] Comment on above: Performed By: #### C BC ####[facility] Yqgipaidjo5879 [place] [address]Dr. Areli Yousif Eosinophils/100 WBC (Bld) 2.5 % Normal 0.9-7.0 [facility] Comment on above: Performed By: #### C BC ####[facility] Yibsryrnlm3488 [place] [address]Dr. Areli Yousif Erythrocyte distribution width (RBC) [Ratio] 13.7 % Normal 11.0-15.0 [facility] Comment on above: Performed By: #### C BC ####[facility] Xtmotysmee[address] [place], [place] [address]Dr. Areli Yousif Hematocrit (Bld) [Volume fraction] 32.0 % Critically low 42.0-54.0 [facility] Comment on above: Performed By: #### C BC ####[facility] Dznlxneqfm[address] [place], [place] [address]Dr. Areli Yousif Hemoglobin (Bld) [Mass/Vol] 10.3 g/dL Critically low 14.0-18.0 [facility] Comment on above: Performed By: #### C BC ####[facility] Gaaswrzwfu[address] [place], [place] [address]Dr. Areli Yousif IG # 0.05 10e3/ul Critically high 0.00-0.03 [facility] Comment on above: Performed By: #### C BC ####[facility] Sylyscdxkc4366 [place] [address]Dr. Areli Yousif IG % 0.5 % Normal 0.0-0.5 [facility] Comment on above: Performed By: #### C BC ####[facility] Diytjifvqd[address] [place], [place] [address]Dr. Areli Yousif LYMPH # 2.7 103/ul Normal 1.2-3.8 [facility] Comment on above: Performed By: #### C BC ####[facility] U[address]axnqeb[address] [place], [place] [address]Dr. Areli Yousif Lymphocytes/100 WBC (Bld) 29.1 % Normal 20.5-60.0 [facility] Comment on above: Performed By: #### C BC ####[facility] Yzcwisvmgd0456 [place] [address]Dr. Areli Yousif MANUAL DIFF REQ NO Normal [facility] Comment on above: Performed By: #### C BC ####[facility] Iepymmbicu8954 [place] [address]Dr. Areli Yousif MCH (RBC) [Entitic mass] 29.3 pg Normal 25.9-34.0 [facility] Comment on above: Performed By: #### C BC ####[facility] Yqeamkihas[address] [place], [place] [address]Dr. Areli Yousif MCHC (RBC) [Mass/Vol] 32.2 g/dL Normal 29.9-35.2 [facility] Comment on above: Performed By: #### C BC ####[facility] [address]rjbsrty[address] [place], [place] [address]Dr. Areli Yousif MCV (RBC) [Entitic vol] 90.9 fL Normal 80.0-94.0 [facility] Comment on above: Performed By: #### C BC ####[facility] Nipagkxght[address] [place], [place] [address]Dr. Areli Yousif MONO # 0.7 103/ul Normal 0.3-0.8 [facility] [facility] Comment on above: Performed By: #### C BC ####[facility] Lesfcipyoz[address] [place], [place] [address]Dr. Areli Yousif Monocytes/100 WBC (Bld) 7.3 % Normal 1.7-12.0 [facility] Comment on above: Performed By: #### C BC ####[facility] Arcmxrkhcg[address] [place], [place] [address]Dr. Areli Yousif NEUT # 5.6 103/ul Normal 1.4-6.5 [facility] Comment on above: Performed By: #### C BC ####[facility] Njjrgbdicj[address] [place], [place] [address]Dr. Areli Yousif Neutrophils/100 WBC (Bld) 60.1 % Normal 43.0-75.0 [facility] Comment on above: Performed By: #### C BC ####[facility] Ivkpckeiqh[address] [place] [address]Dr. Areli Yousif Platelet mean volume (Bld) [Entitic vol] 10.7 fL Normal 9.5-13.5 [facility] Comment on above: Performed By: #### C BC ####[facility] Ylxagvqiph[address] [place] [address]Dr. Areli Yousif PLT 283 103/ul Normal 150-450 [facility] Comment on above: Performed By: #### C BC ####[facility] Zrxftgoyqj5[address] [place] [address]Dr. Areli Yousif RBC 3.52 106/ul Critically low 4.70-6.10 [facility] Comment on above: Performed By: #### C BC ####[facility] Bmnfv[address] [place], [place] [address]Dr. Areli Yousif WBC 9.3 103/ul Normal 4.0-11.0 [facility] Comment on above: Performed By: #### C BC ####[facility] Xrqlalylqh[address] [place] [address]Dr. Areli Yousif POINT OF CARE GLUCOSEon 08-05 Glucose [Mass/Vol] 245 mg/dL Critically high 74-106 [facility] Comment on above: Performed By: #### P OCGLUC ####[facility] Pwczrickfu[address] [place] [address]Dr. Areli Yousif Glucose [Mass/Vol] 158 mg/dL Critically high 74-106 [facility] Comment on above: Performed By: #### P OCGLUC ####[facility] Bjkggjtugh9076 [place] [address]Dr. Areli Benja PROF 14(COMP METB)on 022 Albumin [Mass/Vol] 2.9 g/dL Critically low 3.4-5.[address] [facility] Comment on above: Performed By: #### C MP, CMADM, BNP ####[facility] Qrwssbeemf36[address] [place] [address]Dr. Areli Yousif Albumin/Globulin [Mass ratio] 0.8 {ratio} Normal [facility] Comment on above: Performed By: #### C MP, CMADM, BNP ####[facility] Qxjjzrxuvn7724 [place] [address]Dr. Areli Yousif ALP [Catalytic activity/Vol] 62 U/L Normal 46-116 [facility] Comment on above: Performed By: #### C MP, CMADM, BNP ####[facility] Ofmcgurjky9904 [place] [address]Dr. Areli Yousif ALT [Catalytic activity/Vol] 15 U/L Critically low 16-63 [facility] Comment on above: Performed By: #### C MP, CMADM, BNP ####[facility] Kjmxrakvai216[address] [place] [address]Dr. Areli Yousif Anion gap [Moles/Vol] 13.5 mmol/L Normal [facility] Comment on above: Performed By: #### C MP, CMADM, BNP ####[facility] Tvnzvyrzum12[address] [place] [address]Dr. Areli Yousif AST [Catalytic activity/Vol] 8 U/L Critically low 15-37 [facility] Comment on above: Performed By: #### C MP, CMADM, BNP ####[facility] Zbukvxwpsr8503 [place] [address]Dr. Areli Yousif Bilirubin [Mass/Vol] 0.2 mg/dL Normal 0.2-1.0 [facility] Comment on above: Performed By: #### C MP, CMADM, BNP ####[facility] Xlxvmeomip8545 [place] [address]Dr. Areli Yousif Calcium [Mass/Vol] 8.5 mg/dL Normal 8.5-10.1 [facility] Comment on above: Performed By: #### C MP, CMADM, BNP ####[facility] Htedxepkjb7372 [place] [address]Dr. Areli Yousif Chloride [Moles/Vol] 105 mmol/L Normal 98-107 [facility] Comment on above: Performed By: #### C MP, CMADM, BNP ####[facility] Embfywamlz2160 [place] [address]Dr. Areli Yousif CO2 [Moles/Vol] 22.8 mmol/L Normal 21.0-32.0 [facility] Comment on above: Performed By: #### C MP, CMADM, BNP ####[facility] Igaeszhyae1763 [place] [address]Dr. Areli Yousif Creatinine [Mass/Vol] 1.09 mg/dL Normal 0.70-1.30 [facility] Comment on above: Performed By: #### C MP, CMADM, BNP ####[facility] Rmryhurhgw5386 [place] [address]Dr. Tabbytulio Benja EGFR-AF MOSOTHO >60 Normal >=60 The [facility] Comment on above: Performed By: #### C MP, CMADM, BNP ####[facility] Vnhmviqnuw2483 [place] [address]Dr. Areli Benja EGFR-NON AF MOSOTHO >60 Normal >=60 [facility] Comment on above: Performed By: #### C MP, CMADM, BNP ####[facility] Xsgrwfntwf3524 [place] [address]Dr. Areli Benja Globulin (S) [Mass/Vol] 3.6 g/dL Normal [facility] Comment on above: Performed By: #### C MP, CMADM, BNP ####[facility] Phvldhzabc3189 [place] [address]Dr. Tabbytulio Benja Glucose [Mass/Vol] 155 mg/dL Critically high 74-106 [facility] Comment on above: Performed By: #### C MP, CMADM, BNP ####[facility] Upzjmgqsxc5568 [place] [address]Dr. Tabbytulio Benja Potassium [Moles/Vol] 4.3 mmol/L Normal 3.5-5.1 [facility] Comment on above: Performed By: #### C MP, CMADM, BNP ####[facility] Hqeyvjilrq2244 [place] [address]Dr. Areli Yousif Protein [Mass/Vol] 6.5 g/dL Normal 6.4-8.2 The [facility] Comment on above: Performed By: #### C MP, CMADM, BNP ####[facility] Okrybqcfwr2069 [place] [address]Dr. Areli Yousif Sodium [Moles/Vol] 137 mmol/L Normal 136-145 The [facility] Comment on above: Performed By: #### C MP, CMADM, BNP ####[facility] Fgmwhlqkey7083 [place] [address]Dr. Areli Yousif Urea nitrogen [Mass/Vol] 41.0 mg/dL Critically high 7.0-18.0 [facility] Comment on above: Performed By: #### C MP, CMADM, BNP ####[facility] Epzxtvrbws[address] [place], [place] [address]Dr. Areli Yousif Urea nitrogen/Creatinine [Mass ratio] 37.6 mg/mg Normal [facility] Comment on above: Performed By: #### C MP, CMADM, BNP ####[facility] Qhlakdvhck[address] [place], [place] [address]Dr. Areli Yousif BNPon 08-14-2022 Natriuretic peptide B (Bld) [Mass/Vol] 866.0 pg/mL Normal <=900.0 [facility] Comment on above: Performed By: #### B SHIPPING INSPECTOR, CMP, CMADM ####[facility] Sydoujnlqw9[address] [place] [address]Dr. Areli Yousif CARDIAC ASHLEY ADMITon 022 CK [Catalytic activity/Vol] 43 U/L Normal 39-308 [facility] Comment on above: Performed By: #### B SHIPPING INSPECTOR, CMP, CMADM ####[facility] Qsquhmlxyk[address] [place], [place] [address]Dr. Areli Yousif CK.MB [Mass/Vol] 1.62 ng/mL Normal <=3.60 The [facility] Comment on above: Performed By: #### B SHIPPING INSPECTOR, CMP, CMADM ####[facility] Lpbcmcwynm[address] [place], [place] [address]Dr. Areli Yousif HSTROP 14.8 pg/mL Normal 4.0-76.1 [facility] Comment on above: Result Comment: CUT- OFF POINTS HAVE BEEN ESTABLISHED BASED ON THE FOURTH UNIVERSAL DEFINITIONS OF MYOCARDIALINFARCTION. THE UPPER REFERENCE LIMIT (URL) OF TROPONIN, DEFINED THE 99TH PERCENTILE OFcTnI DISTRIBUTION IN A REFERENCE POPULATION, HAS BEEN CONFIRMED THE DECISION THRESHOLDFOR [place] DIAGNOSIS. Performed By: #### B SHIPPING INSPECTOR, CMP, CMADM ####[facility] Fidgvtdden5135 [place] [address]Dr. Areli Yousif LAWRENCE 81 ng/mL Normal 16-96 [facility] Comment on above: Performed By: #### B SHIPPING INSPECTOR, CMP, CMADM ####[facility] Cgekrnqmqx5515 [place] [address]Dr. Areli Yousif CBC AUTO DIFFon 08-14-2022 BASO # 0.0 103/ul Normal 0.0-0.1 [facility] Comment on above: Performed By: #### C BC ####[facility] K[address]abuadih[address] [place] [address]Dr. Areli Yousif Basophils/100 WBC (Bld) 0.4 % Normal 0.2-2.0 [facility] Comment on above: Performed By: #### C BC ####[facility] Agamvhwetq2584 [place] [address]Dr. Areli Yousif EO # 0.3 103/ul Normal 0.0-0.7 [facility] Comment on above: Performed By: #### C BC ####[facility] Iecsclqgpq8342 [place] [address]Dr. Areli Yousif Eosinophils/100 WBC (Bld) 2.5 % Normal 0.9-7.0 [facility] Comment on above: Performed By: #### C BC ####[facility] Miczrwnusp5042 [place] [address]Dr. Areli Yousif Erythrocyte distribution width (RBC) [Ratio] 13.9 % Normal 11.0-15.0 [facility] Comment on above: Performed By: #### C BC ####[facility] Acirkhoevm6797 [place] [address]Dr. Areli Yousif Hematocrit (Bld) [Volume fraction] 34.9 % Critically low 42.0-54.0 [facility] Comment on above: Performed By: #### C BC ####[facility] Azyyvbdylk2272 [place] [address]Dr. Areli Benja Hemoglobin (Bld) [Mass/Vol] 11.3 g/dL Critically low 14.0-18.0 [facility] Comment on above: Performed By: #### C BC ####[facility] Cwscihihqn9165 [place] [address]Dr. Areli Yousif IG # 0.02 10e3/ul Normal 0.00-0.03 [facility] Comment on above: Performed By: #### C BC ####[facility] Xqkenhgdci[address] [place], [place] [address]Dr. Areli Yousif IG % 0.2 % Normal 0.0-0.5 [facility] Comment on above: Performed By: #### C BC ####[facility] Nmqttdchaw7507 [place] [address]Dr. Areli Yousif LYMPH # 3.4 103/ul Normal 1.2-3.8 [facility] Comment on above: Performed By: #### C BC ####[facility] Bgzlfnzinp1392 [place] [address]Dr. Areli Yousif Lymphocytes/100 WBC (Bld) 34.6 % Normal 20.5-60.0 [facility] Comment on above: Performed By: #### C BC ####[facility] Lkbwrfkvcp4922 [place] [address]Dr. Tabbytulio Yousif MANUAL DIFF REQ NO Normal The [facility] Comment on above: Performed By: #### C BC ####[facility] Xvngreeufw[address] [place], [place] [address]Dr. Areli Benja MCH (RBC) [Entitic mass] 29.4 pg Normal 25.9-34.0 [facility] Comment on above: Performed By: #### C BC ####[facility] P[address]qhpw[address] [place], [place] [address]Dr. Areli Yousif MCHC (RBC) [Mass/Vol] 32.4 g/dL Normal 29.9-35.2 [facility] Comment on above: Performed By: #### C BC ####[facility] Hrnxxaiaia77[address] [place] [id number]. Areli Yousif MCV (RBC) [Entitic vol] 90.9 fL Normal 80.0-94.0 [facility] Comment on above: Performed By: #### C BC ####[facility] Qebmcvhbqx5954 [place] [id number]. Areli Benja MONO # 0.7 103/ul Normal 0.3-0.8 [facility] Comment on above: Performed By: #### C BC ####[facility] Tqoyoqlitc[address] [place], [place] [address]Dr. Areli Yousif Monocytes/100 WBC (Bld) 6.7 % Normal 1.7-12.0 [facility] Comment on above: Performed By: #### C BC ####[facility] Xgndiunuis[address] [place], [place] [address]Dr. Areli Benja NEUT # 5.5 103/ul Normal 1.4-6.5 [facility] Comment on above: Performed By: #### C BC ####[facility] [address]wju[address] [place], [place] [address]Dr. Areli Benja Neutrophils/100 WBC (Bld) 55.6 % Normal 43.0-75.0 [facility] Comment on above: Performed By: #### C BC ####[facility] Rvnkeztewu2986 [place] [address]Dr. rAeli Benja Platelet mean volume (Bld) [Entitic vol] 10.1 fL Normal 9.5-13.5 [facility] Comment on above: Performed By: #### C BC ####[facility] [address] [place] [id number]. Areli Benja PLT 270 103/ul Normal 150-450 [facility] Comment on above: Performed By: #### C BC ####[facility] Ysnhxwdkpb7301 [place] [id number]. Areli Yousif RBC 3.84 106/ul Critically low 4.70-6.10 [facility] Comment on above: Performed By: #### C BC ####[facility] Nbecgkfdnn1108 [place] [address]Dr. Areli Yousif WBC 10.0 103/ul Normal 4.0-11.0 [facility] Comment on above: Performed By: #### C BC ####[facility] Itzjgpsfaj9698 [place] [address]Dr. Areli Yousif CTA NECK WO W CONon 08-14-20 CTA NECK WO W CON Normal [facility] ECHOCARDIO M/2D COMPLETEon 10-14-2021 ECHOCARDIO M/2D COMPLETE Normal [facility] POINT OF CARE GLUCOSEon 08-05 Glucose [Mass/Vol] 386 mg/dL Critically high 74-106 [facility] Comment on above: Performed By: #### P OCGLUC ####[facility] Xzixpurcps3278 [place] [address]Dr. Areli Yousif Glucose [Mass/Vol] 234 mg/dL Critically high 74-106 [facility] Comment on above: Performed By: #### P OCGLUC ####[facility] Nqiiamcwrs4252 [place] [address]Dr. Areli Yousif Glucose [Mass/Vol] 146 mg/dL Critically high 74-106 [facility] Comment on above: Performed By: #### P OCGLUC ####[facility] Hqrwgmonnv1982 [place] [address]Dr. Areli Benja PROF 14(COMP METB)on 022 Albumin [Mass/Vol] 3.0 g/dL Critically low 3.4-5.[address] [facility] Comment on above: Performed By: #### B SHIPPING INSPECTOR, CMP, CMADM ####[facility] Naltuyenbb6144 [place] [address]Dr. Areli Yousif Albumin/Globulin [Mass ratio] 0.8 {ratio} Normal [facility] Comment on above: Performed By: #### B SHIPPING INSPECTOR, CMP, CMADM ####[facility] Soudljfbnl2164 [place] [id number]. Areli Yousif ALP [Catalytic activity/Vol] 69 U/L Normal 46-116 [facility] Comment on above: Performed By: #### B SHIPPING INSPECTOR, CMP, CMADM ####[facility] Bcuwiunrwx0522 [place] [id number]. Areli Yousif ALT [Catalytic activity/Vol] 12 U/L Critically low 16-63 [facility] Comment on above: Performed By: #### B SHIPPING INSPECTOR, CMP, CMADM ####[facility] Hljdklbkpf9565 [place] [address]Dr. Areli Yousif Anion gap [Moles/Vol] 10.8 mmol/L Normal e [facility] Comment on above: Performed By: #### B SHIPPING INSPECTOR, CMP, CMADM ####[facility] Myndafydba9572 [place] [address]Dr. Areli Yousif AST [Catalytic activity/Vol] 8 U/L Critically low 15-37 [facility] Comment on above: Performed By: #### B SHIPPING INSPECTOR, CMP, CMADM ####[facility] Lzriyuyscj7724 [place] [address]Dr. Areli Yousif Bilirubin [Mass/Vol] 0.3 mg/dL Normal 0.2-1.0 [facility] Comment on above: Performed By: #### B SHIPPING INSPECTOR, CMP, CMADM ####[facility] Bjawosjocw2949 [place] [address]Dr. Areli Yousif Calcium [Mass/Vol] 8.8 mg/dL Normal 8.5-10.1 [facility] Comment on above: Performed By: #### B SHIPPING INSPECTOR, CMP, CMADM ####[facility] Pxapmpqoiz0620 [place] [address]Dr. Areli Yousif Chloride [Moles/Vol] 104 mmol/L Normal 98-107 [facility] Comment on above: Performed By: #### B SHIPPING INSPECTOR, CMP, CMADM ####[facility] Ipqjlixwzk3529 [place] [address]Dr. Areli Yousif CO2 [Moles/Vol] 24.6 mmol/L Normal 21.0-32.0 The [facility] Comment on above: Performed By: #### B SHIPPING INSPECTOR, CMP, CMADM ####[facility] Xmkndyclng2441 [place] [address]Dr. Areli Yousif Creatinine [Mass/Vol] 1.07 mg/dL Normal 0.70-1.30 The [facility] Comment on above: Performed By: #### B SHIPPING INSPECTOR, CMP, CMADM ####[facility] Mhikjjdtrr7407 [place] [id number]. Areli Yousif EGFR-AF MOSOTHO >60 Normal >=60 The [facility] Comment on above: Performed By: #### B SHIPPING INSPECTOR, CMP, CMADM ####[facility] Erljmevqyx4868 [place] [address]Dr. Areli Yousif EGFR-NON AF MOSOTHO >60 Normal >=60 The [facility] Comment on above: Performed By: #### B SHIPPING INSPECTOR, CMP, CMADM ####[facility] Ctewgacjib3300 [place] [address]Dr. Areli Yousif Globulin (S) [Mass/Vol] 3.8 g/dL Normal [facility] Comment on above: Performed By: #### B SHIPPING INSPECTOR, CMP, CMADM ####[facility] Hegocrhhac4534 [place] [address]Dr. Areli Yousif Glucose [Mass/Vol] 90 mg/dL Normal 74-106 The [facility] Comment on above: Performed By: #### B SHIPPING INSPECTOR, CMP, CMADM ####[facility] Aqczxbovfu0341 [place] [id number]. Areli Yousif Potassium [Moles/Vol] 4.4 mmol/L Normal 3.5-5.1 The [facility] Comment on above: Performed By: #### B SHIPPING INSPECTOR, CMP, CMADM ####[facility] Jefpljhlwk2538 [place] [address]Dr. Areli Yousif Protein [Mass/Vol] 6.8 g/dL Normal 6.4-8.2 The [facility] Comment on above: Performed By: #### B SHIPPING INSPECTOR, CMP, CMADM ####[facility] Ngtqlwgmpv4007 [place] [address]Dr. Areli Yousif Sodium [Moles/Vol] 135 mmol/L Critically low 136-145 Th [facility] Comment on above: Performed By: #### B SHIPPING INSPECTOR, CMP, CMADM ####[facility] Xvgmwivhnl1042 [place] [address]Dr. Areli Yousif Urea nitrogen [Mass/Vol] 38.0 mg/dL Critically high 7.0-18.0 [facility] Comment on above: Performed By: #### B SHIPPING INSPECTOR, CMP, CMADM ####[facility] Aldbnlzxna7153 [place] [address]Dr. Areli Yousif Urea nitrogen/Creatinine [Mass ratio] 35.5 mg/mg Normal [facility] Comment on above: Performed By: #### B SHIPPING INSPECTOR, CMP, CMADM ####[facility] Nrqsyvbfzo8744 [place] [address]Dr. Areli Yousif BNPon 08-13-2022 Natriuretic peptide B (Bld) [Mass/Vol] 963.0 pg/mL Critically high <=900.0 [facility] Comment on above: Performed By: #### L IPA, CMADM, BNP, CMP ####[facility] Ioioznteyq9309 [place] [address]Dr. Areli Yousif CARDIAC ASHLEY ADMITon 022 CK [Catalytic activity/Vol] 48 U/L Normal 39-308 [facility] Comment on above: Performed By: #### L IPA, CMADM, BNP, CMP ####[facility] Dbynfwhocn1209 [place] [address]Dr. Areli Benja CK.MB [Mass/Vol] 1.17 ng/mL Normal <=3.60 The [facility] Comment on above: Performed By: #### L IPA, CMADM, BNP, CMP ####[facility] Cnwyzunemi[address] [place], [place] [address]Dr. Areli Yousif HSTROP 14.9 pg/mL Normal 4.0-76.1 [facility] Comment on above: Result Comment: CUT- OFF POINTS HAVE BEEN ESTABLISHED BASED ON THE FOURTH UNIVERSAL DEFINITIONS OF MYOCARDIALINFARCTION. THE UPPER REFERENCE LIMIT (URL) OF TROPONIN, DEFINED THE 99TH PERCENTILE OFcTnI DISTRIBUTION IN A REFERENCE POPULATION, HAS BEEN CONFIRMED THE DECISION THRESHOLDFOR [place] DIAGNOSIS. Performed By: #### L IPA, CMADM, BNP, CMP ####[facility] Wzrsctiowp2260 [place] [address]Dr. Areli Yousif LAWRENCE 86 ng/mL Normal 16-96 [facility] Comment on above: Performed By: #### L IPA, CMADM, BNP, CMP ####[facility] Ctoyqaymju2210 [place] [address]Dr. Tabbytulio Yousif CBC AUTO DIFFon 08-13-2022 BASO # 0.0 103/ul Normal 0.0-0.1 [facility] Comment on above: Performed By: #### C BC ####[facility] [address]vtqnejpi[address] [place], [place] [address]Dr. Areli Yousif Basophils/100 WBC (Bld) 0.3 % Normal 0.2-2.0 [facility] Comment on above: Performed By: #### C BC ####[facility] Hkpuiddbvj[address] [place], [place] [address]Dr. Tabbytulio Yousif EO # 0.2 103/ul Normal 0.0-0.7 [facility] Comment on above: Performed By: #### C BC ####[facility] [address]aspzwrx[address] [place], [place] [address]Dr. Tabbytulio Yousif Eosinophils/100 WBC (Bld) 2.2 % Normal 0.9-7.0 [facility] Comment on above: Performed By: #### C BC ####[facility] Yepwbxmxbo[address] [place], [place] [address]Dr. Tabbytulio Yousif Erythrocyte distribution width (RBC) [Ratio] 13.9 % Normal 11.0-15.0 [facility] Comment on above: Performed By: #### C BC ####[facility] Trgkupppzm[address] [place], [place] [address]Dr. Areli Yousif Hematocrit (Bld) [Volume fraction] 34.4 % Critically low 42.0-54.0 [facility] Comment on above: Performed By: #### C BC ####[facility] Vvktilrfgt0414 [place] [id number]. Areli Yousif Hemoglobin (Bld) [Mass/Vol] 11.1 g/dL Critically low 14.0-18.0 [facility] Comment on above: Performed By: #### C BC ####[facility] Edhfsqjvrk5095 [place] [id number]. Areli Yousif IG # 0.06 10e3/ul Critically high 0.00-0.03 [facility] Comment on above: Performed By: #### C BC ####[facility] Xufvbsdgvi8973 [place] [address]Dr. Areli Yousif IG % 0.6 % Critically high 0.0-0.5 [facility] Comment on above: Performed By: #### C BC ####[facility] Usilfbhzlp[address] [place], [place] [address]Dr. Areli Yousif LYMPH # 3.2 103/ul Normal 1.2-3.8 The [facility] Comment on above: Performed By: #### C BC ####[facility] Eqwucfgraw[address] [place], [place] [address]Dr. Areli Yousif Lymphocytes/100 WBC (Bld) 29.5 % Normal 20.5-60.0 The [facility] Comment on above: Performed By: #### C BC ####[facility] [address]we[address] [place] [address]Dr. Areli Yousif MANUAL DIFF REQ NO Normal The [facility] Comment on above: Performed By: #### C BC ####[facility] Pbhqkleqzx[address] [place], [place] [address]Dr. Areli Yousif MCH (RBC) [Entitic mass] 29.5 pg Normal 25.9-34.0 The [facility] Comment on above: Performed By: #### C BC ####[facility] Trilpbpwnz[address] [place], [place] [address]Dr. Areli Yousif MCHC (RBC) [Mass/Vol] 32.3 g/dL Normal 29.9-35.2 The [facility] Comment on above: Performed By: #### C BC ####[facility] Yszlivdgjl[address] [place] [id number]. Areli Yousif MCV (RBC) [Entitic vol] 91.5 fL Normal 80.0-94.0 The [facility] Comment on above: Performed By: #### C BC ####[facility] Vitbuugfme[address] [place] [id number]. Areli Yousif MONO # 0.8 103/ul Normal 0.3-0.8 The [facility] Comment on above: Performed By: #### C BC ####[facility] Lhfgcimihp4352 [place] [id number]. Areli Yousif Monocytes/100 WBC (Bld) 7.4 % Normal 1.7-12.0 The [facility] Comment on above: Performed By: #### C BC ####[facility] Dekq[address]mer[address] [place], [place] [address]Dr. Areli Yousif NEUT # 6.4 103/ul Normal 1.4-6.5 The [facility] Comment on above: Performed By: #### C BC ####[facility] Ggwqc[address]ari[address] [place] [id number]. Areli Yousif Neutrophils/100 WBC (Bld) 60.0 % Normal 43.0-75.0 The [facility] Comment on above: Performed By: #### C BC ####[facility] Jeuk[address]fuh[address] [place] [phone]. Areli Yousif Platelet mean volume (Bld) [Entitic vol] 10.3 fL Normal 9.5-13.5 The [facility] Comment on above: Performed By: #### C BC ####[facility] Pcnvhsefal[address] [place] [id number]. Areli Yousif PLT 282 103/ul Normal 150-450 The [facility] Comment on above: Performed By: #### C BC ####[facility] Gftxvogyrp28[address] [place] [phone]. Areli Yousif RBC 3.76 106/ul Critically low 4.70-6.10 The [facility] Comment on above: Performed By: #### C BC ####[facility] Fcmlckbjvp8438 [place], [place] [address]Lf. Areli Yousif WBC 10.7 103/ul Normal 4.0-11.0 The [facility] Comment on above: Performed By: #### C BC ####[facility] Uelhstfntm[address] [place] [phone]. Areli Yousif CT STROKE HEAD WOon 08-13-[address] STROKE HEAD WO Normal The [facility] Covid-19 PCR ([facility]ISC[facility] CHILDREN'[facility])on SARS-CoV-2 (COVID-19) RNA MANSI+probe Ql (Unsp spec) Not detected Normal NOT DETECTED The [facility] Comment on above: Result Comment: When [...] for this test is supported by the Folder And Notcher of Health and Human Service's declaration that [...] be used). Performed By: #### C VDTBH ####[facility] Zhhqgvcfzc0856 [place] [phone]. Areli Benja ER URINE PROFILEon 2 Bilirubin Ql (U) Negative Normal NEGATIVE The [facility] Comment on above: Performed By: #### E RUR ####[facility] Tgbtqwbfxg[address] [place], [place] [address]Dr. Areli Yousif Clarity (U) CLEAR Normal CLEAR The [facility] Comment on above: Performed By: #### E RUR ####[facility] Iwvahkbfnt[address] [place] [phone]. Areli Yousif Color (U) LT. YELLOW Normal YELLOW The [facility] Comment on above: Performed By: #### E RUR ####[facility] Xytyncadve[address] [place], [place] [address]Dr. Areli Yousif ERUAHD A micrscopic examination will be performed if indicated. Normal The [facility] Comment on above: Performed By: #### E RUR ####[facility] Jpjcmwwd[address] [place], [place] [address]Dr. Areli Yousif Glucose Ql (U) Negative Normal NEGATIVE The [facility] Comment on above: Performed By: #### E RUR ####[facility] Vfopwoqeky[address] [place], [place] [address]Dr. Areli Yousif Hemoglobin Ql (U) Negative Normal NEGATIVE [facility] Comment on above: Performed By: #### E RUR ####[facility] Ebhmhsdumk[address] [place], [place] [address]Dr. Areli Yousif Ketones Ql (U) Negative Normal NEGATIVE The [facility] Comment on above: Performed By: #### E RUR ####[facility] Jfbuhilbds[address] [place], [place] [address]Dr. Areli Yousif LEUKOCYTES Negative Normal NEGATIVE [facility] Comment on above: Performed By: #### E RUR ####[facility] Tiutbtxhyk[address] [place], [place] [address]Dr. Areli Yousif Nitrite Ql (U) Negative Normal NEGATIVE The [facility] Comment on above: Performed By: #### E RUR ####[facility] Lcnekabqbd[address] [place], [place] [address]Dr. Areli Yousif pH (U) 6.0 [pH] Normal 5-9 The [facility] Comment on above: Performed By: #### E RUR ####[facility] Qfrxprzmxj[address] [place], [place] [address]Dr. Areli Yousif Protein (U) [Mass/Vol] 30 mg/dL Abnormal NEGAT TIMOTHY/ TRACE The [facility] Comment on above: Performed By: #### E RUR ####[facility] Mwedvuzbfy[address] [place], [place] [address]Dr. Areli Yousif SPEC GRAVITY 1.020 Normal 1.005-<=1.02 5 [facility] Comment on above: Performed By: #### E RUR ####[facility] [address]sm[address]unmmiz[address] [place] [address]Dr. Areli Yousif UR MICRO IND NOT INDICATED Normal The [facility] Comment on above: Performed By: #### E RUR ####[facility] Xgebfbzkiu[address] [place] [address]Dr. Areli Yousif Urobilinogen Qn (U) 0.2 {Alyssia'U}/dL Normal 0.2 - 1. 0 [facility] Comment on above: Performed By: #### E RUR ####[facility] Uvscqebccr[address] [place], [place] [address]Dr. Areli Yousif LACTATE/LACTIC ACIDon 2021 Lactate [Moles/Vol] 1.8 mmol/L Normal 0.4-1.9 [facility] Comment on above: Performed By: #### L ACT ####[facility] [address]azawn[address] [place] [address]Dr. Areli Yousif LIPASEon 08-13-2022 Lipase [Catalytic activity/Vol] 75.0 U/L Normal 73.0-393.0 [facility] Comment on above: Performed By: #### L IPA, CMADM, BNP, CMP ####[facility] Nyprwrizdq[address] [place] [address]Dr. Areli Yousif POINT OF CARE GLUCOSEon Glucose [Mass/Vol] 118 mg/dL Critically high 74-106 [facility] Comment on above: Performed By: #### P OCGLUC ####[facility] Mulfwgwemw[address] [place] [address]Dr. Areli Yousif PROF 14(COMP METB)on 022 Albumin [Mass/Vol] 3.3 g/dL Critically low 3.4-5.[address] [facility] Comment on above: Performed By: #### L IPA, CMADM, BNP, CMP ####[facility] Dvslfpfutv[address] [place], [place] [address]Dr. Areli Yousif Albumin/Globulin [Mass ratio] 0.8 {ratio} Normal [facility] Comment on above: Performed By: #### L IPA, CMADM, BNP, CMP ####[facility] H[address]eg[address] [place] [address]Dr. Tabbytulio Yousif ALP [Catalytic activity/Vol] 68 U/L Normal 46-116 [facility] Comment on above: Performed By: #### L IPA, CMADM, BNP, CMP ####[facility] Oxfywwskjf[address] [place] [address]Dr. Areli Yousif ALT [Catalytic activity/Vol] 12 U/L Critically low 16-63 [facility] Comment on above: Performed By: #### L IPA, CMADM, BNP, CMP ####[facility] Vprmqrmfug[address] [place] [address]Dr. Areli Yousif Anion gap [Moles/Vol] 12.0 mmol/L Normal [facility] Comment on above: Performed By: #### L IPA, CMADM, BNP, CMP ####[facility] Szvirornxc[address] [place] [address]Dr. Areli Yousif AST [Catalytic activity/Vol] 9 U/L Critically low 15-37 [facility] Comment on above: Performed By: #### L IPA, CMADM, BNP, CMP ####[facility] L[address]tybzwep[address] [place] [address]Dr. Areli Yousif Bilirubin [Mass/Vol] 0.2 mg/dL Normal 0.2-1.0 [facility] Comment on above: Performed By: #### L IPA, CMADM, BNP, CMP ####[facility] [address]hr[address] [place] [address]Dr. Areli Yousif Calcium [Mass/Vol] 9.3 mg/dL Normal 8.5-10.1 [facility] Comment on above: Performed By: #### L IPA, CMADM, BNP, CMP ####[facility] Ac[address]dpqkfb[address] [place] [address]Dr. Areli Yousif Chloride [Moles/Vol] 104 mmol/L Normal 98-107 [facility] Comment on above: Performed By: #### L IPA, CMADM, BNP, CMP ####[facility] Rfyelpktqv[address] [place] [address]Dr. Areli Yousif CO2 [Moles/Vol] 25.0 mmol/L Normal 21.0-32.0 [facility] Comment on above: Performed By: #### L IPA, CMADM, BNP, CMP ####[facility] Mjmgneymva[address] [place], [place] [address]Dr. Areli Yousif Creatinine [Mass/Vol] 1.35 mg/dL Critically high 0.70-1.30 [facility] Comment on above: Performed By: #### L IPA, CMADM, BNP, CMP ####[facility] Mqcrqqfye[address] [place], [place] [address]Dr. Areli Yousif EGFR-AF [place]OT[place] >60 Normal >=60 [facility] Comment on above: Performed By: #### L IPA, CMADM, BNP, CMP ####[facility] V[address]wmngltzn[address] [place], [place] [address]Dr. Areli Yousif EGFR-NON AF [place] 53 mL/min/1.73m2 Critically low >=60 The [facility] Comment on above: Performed By: #### L IPA, CMADM, BNP, CMP ####[facility] Qdbgyijfbf[address] [place], [place] [address]Dr. Areli Yousif Globulin (S) [Mass/Vol] 3.9 g/dL Normal [facility] Comment on above: Performed By: #### L IPA, CMADM, BNP, CMP ####[facility] [address]fr[address]rrsb[address] [place], [place] [address]Dr. Areli Yousif Glucose [Mass/Vol] 131 mg/dL Critically high 74-106 [facility] Comment on above: Performed By: #### L IPA, CMADM, BNP, CMP ####[facility] Qoyhdksaji[address] [place], [place] [address]Dr. Areli Yousif Potassium [Moles/Vol] 5.0 mmol/L Normal 3.5-5.1 [facility] Comment on above: Performed By: #### L IPA, CMADM, BNP, CMP ####[facility] Mqwwtfvjmy[address] [place] [id number]. Areli Yousif Protein [Mass/Vol] 7.2 g/dL Normal 6.4-8.2 The [facility] Comment on above: Performed By: #### L IPA, CMADM, BNP, CMP ####[facility] [address]bb[address] [place] [id number]. Tabbytulio Yousif Sodium [Moles/Vol] 136 mmol/L Normal 136-145 The [facility] Comment on above: Performed By: #### L IPA, CMADM, BNP, CMP ####[facility] [address]siyf[address] [place] [address]Dr. Tabbytulio Yousif Urea nitrogen [Mass/Vol] 48.0 mg/dL Critically high 7.0-18.0 [facility] Comment on above: Performed By: #### L IPA, CMADM, BNP, CMP ####[facility] T[address]gsm[address] [place] [address]Dr. Areli Yousif Urea nitrogen/Creatinine [Mass ratio] 35.6 mg/mg Normal The [facility] Comment on above: Performed By: #### L IPA, CMADM, BNP, CMP ####[facility] Opffuaaztv[address] [place] [address]Dr. Areli Yousif XR CHEST 1 Von 08-13-2022 XR CHEST 1 V Normal [facility] Outside Recordson 08-11-2022 Outside Records [id number]#1 .00OTGTIFF [facility] Coding Summaryon 08-08-2022 Coding Summary [facility] Outside Recordson 08-08-2022 Outside Records [id number]#1.0 0OTGTIFF [facility] Outside Recordson 08-05-2022 Outside Records [id number] 20 [id number]#1.0 0OTGTIFF [facility] Coding Summaryon 08-04-2022 Coding Summary [facility] Coding Summary [facility] Office/Clinic Noteon 022 Office/Clinic Note [facility] Outside Recordson 08-04-2022 Outside Records [id number]#1 [facility]-2022 Provider Orders [id number] 06 [id number]#1.00 [facility] BMP Standardon 07-31-2022 eGFR AA >60 Invalid Interpretation Code [facility] Comment on above: Result Comment: Publishing Director lokesh Kidney disease could be indicated at eGFRs of less than 60 ml/min/1.73m2. Kidney Failure is indicated at less than 15 ml/min/1.73m2 Performed By: #### 1 [id number] ####[facility] (DEFAULT)[address] [place] [address] 87268 eGFR Non AA >60 Invalid Interpretation Code [facility] Comment on above: Performed By: #### 1 [id number] ####[facility] (DEFAULT)[address] [place] [address] 05538 Anion gap [Moles/Vol] 16.0 mmol/L Normal 5.0-19.0 [facility] Comment on above: Performed By: #### 1 [id number] ####[facility] (DEFAULT)[address] [place] [address] 34819 Calcium [Mass/Vol] 8.8 mg/dL Low 8.9-10.3 [facility] Comment on above: Performed By: #### 1 [id number] ####[facility] (DEFAULT)[address] [place] [address] 69746 Chloride [Moles/Vol] 101 mmol/L Normal 101-111 [facility] Comment on above: Performed By: #### 1 [id number] ####[facility] (DEFAULT)[address] [place] [address] 30896 CO2 [Moles/Vol] 23 mmol/L Normal 21-32 [facility] Comment on above: Performed By: #### 1 [id number] ####[facility] (DEFAULT)[address] [place] [address] 81273 Creatinine [Mass/Vol] 1.17 mg/dL Normal 0.90-1.30 [facility] Comment on above: Performed By: #### 1 [id number] ####[facility] (DEFAULT)[address] [place] [address] 32984 Glucose [Mass/Vol] 33.0 mg/dL Critically abnormal 74.0-118.0 [facility] Comment on above: Result Comment: Crit ical GLUm 33 result called and read back ok to: BARBARA LIGHT at: 13:54:45 07/31/2022 by: SONYA Performed By: #### 1 [id number] ####[facility] (DEFAULT)[address] [place] [address] 77828 Osmolality 273 mOsm/L Invalid Interpretation Code [facility] Comment on above: Performed By: #### 1 [id number] ####[facility] (DEFAULT)[address] [place] [address] 03375 Potassium [Moles/Vol] 4.8 mmol/L Normal 3.6-5.1 [facility] Comment on above: Performed By: #### 1 [id number] ####[facility] (DEFAULT)[address] [place] [address] 96746 Sodium [Moles/Vol] 135.0 mmol/L Low 136.0-144.0 [facility] Comment on above: Performed By: #### 1 [id number] ####[facility] (DEFAULT)[address] [place] [address] 29614 Urea nitrogen [Mass/Vol] 30 mg/dL High 8-26 [facility] Comment on above: Performed By: #### 1 [id number] ####[facility] (DEFAULT)[address] [place] [address] 50204 Urea nitrogen/Creatinine [Mass ratio] 26.0 mg/mg High 4.6-16.2 [facility] Comment on above: Performed By: #### 1 [id number] ####[facility] (DEFAULT)[address] [place] [address] 81945 Phone Message/Callon 022 Phone Message/Call Normal [facility] Coding Summaryon 07-28-2022 Coding Summary [facility] Progress Note - Nurseon 07-06 Progress Note - Nurse [id number]#1.0 0OTGTIFF [facility] POCT Glucose Levelon 022 Glucose [Mass/Vol] 221 mg/dL High 74-118 [facility] Comment on above: Performed By: #### 4 [id number] ####[facility] (DEFAULT)[address] [place] [address] Consent Formson 07-25-2022 Consent Forms [id number]#1.0 [facility] 07-25-2022 Provider Orders [id number]#1.00 OTGTIFF [facility] Coding Queryon 07-24-2022 Coding Query [facility] Consent Formson 07-24-2022 Consent Forms [id number]#1.0 0OTGTIFF [facility] Phone Message/Callon 022 Phone Message/Call [facility] .Auto Diff 1on 07-23-2022 Auto [place] % 7 % Normal -12 [facility] Comment on above: Performed By: #### 1 [id number], [id number], [id number] ####[facility] (DEFAULT)[address] [place] [address] 87695 Baso Abs# 0.0 x10 Normal 0.0-0.2 [facility] Comment on above: Performed By: #### 1 [id number], [id number], [id number] ####[facility] (DEFAULT)[address] [place] [address] 05571 Basophils/100 WBC (Bld) 0.2 % Normal 0.2-2.0 [facility] Comment on above: Performed By: #### 1 [id number], [id number], 5763034 ####[facility] (DEFAULT)[address] [place] [address] 12709 Eos Abs# 0.2 x10 Normal 0.0-0.4 [facility] Comment on above: Performed By: #### 1 [id number], [id number], [id number] ####[facility] (DEFAULT)[address] [place] [address] 01193 Eosinophils/100 WBC (Bld) 2.1 % Normal 0.9-4.0 [facility] Comment on above: Performed By: #### 1 [id number], [id number], [id number] ####[facility] (DEFAULT)[address] [place] [address] Lymph Abs# 3.2 x10 High 1.3-2.9 [facility] Comment on above: Performed By: #### 1 [id number], [id number], [id number] ####[facility] (DEFAULT)[address] [place] [address] Lymphocytes/100 WBC (Bld) 35 % Normal 14-48 [facility] Comment on above: Performed By: #### 1 [id number], [id number], [id number] ####[facility] (DEFAULT)[address] [place] [address] [place] Abs# 0.7 x10 Normal 0.0-0.8 [facility] Comment on above: Performed By: #### 1 [id number], [id number], 3582101 ####[facility] (DEFAULT)[address] [place] [address] 43846 Neut Abs# 5.1 x10 Normal 1.5-9.2 [facility] Comment on above: Performed By: #### 1 [id number], 40784799, 8626393 ####[facility] (DEFAULT)[address] [place] [address] 42416 Neutrophils/100 WBC (Bld) 56 % Normal 44-88 [facility] Comment on above: Performed By: #### 1 [id number], [id number], 5103290 ####[facility] (DEFAULT)[address] [place] [address] BMP Standardon 07-23-2022 eGFR Non AA >60 Invalid Interpretation Code [facility] Comment on above: Performed By: #### 1 [id number], [id number], [id number] ####[facility] (DEFAULT)[address] [place] [address] 23781 eGFR AA >60 Invalid Interpretation Code [facility] Comment on above: Result Comment: Publishing Director lokesh Kidney disease could be indicated at eGFRs of less than 60 ml/min/1.73m2. Kidney Failure is indicated at less than 15 ml/min/1.73m2 Performed By: #### 1 [id number], [id number], [id number] ####[facility] (DEFAULT)[address] [place] [address] 01713 Anion gap [Moles/Vol] 12.0 mmol/L Normal 5.0-19.0 [facility] Comment on above: Performed By: #### 1 [id number], 37810339, [id number] ####[facility] (DEFAULT)[address] [place] [address] 77672 Calcium [Mass/Vol] 8.7 mg/dL Low 8.9-10.3 [facility] Comment on above: Performed By: #### 1 [id number], [id number], 2596611 ####[facility] (DEFAULT)[address] [place] [address] 32740 Chloride [Moles/Vol] 106 mmol/L Normal 101-111 [facility] Comment on above: Performed By: #### 1 [id number], [id number], 5807035 ####[facility] (DEFAULT)[address] [place] [address] 30833 CO2 [Moles/Vol] 24 mmol/L Normal 21-32 [facility] Comment on above: Performed By: #### 1 [id number], 06378586, 0794376 ####[facility] (DEFAULT)[address] [place] [address] 16954 Creatinine [Mass/Vol] 1.05 mg/dL Normal 0.90-1.30 [facility] Comment on above: Performed By: #### 1 [id number], [id number], 8900872 ####[facility] (DEFAULT)[address] [place] [address] 32130 Glucose [Mass/Vol] 126.0 mg/dL High 74.0-118.0 [facility] Comment on above: Performed By: #### 1 [id number], [id number], 3806524 ####[facility] (DEFAULT)[address] [place] [address] 89176 Osmolality 286 mOsm/L Invalid Interpretation Code [facility] Comment on above: Performed By: #### 1 [id number], [id number], 5923728 ####[facility] (DEFAULT)[address] [place] [address] 63528 Potassium [Moles/Vol] 4.5 mmol/L Normal 3.6-5.1 [facility] Comment on above: Performed By: #### 1 [id number], 14240828, 2258888 ####[facility] (DEFAULT)[address] [place] [address] 74121 Sodium [Moles/Vol] 137.0 mmol/L Normal 136.0-144.0 [facility] Comment on above: Performed By: #### 1 [id number], 96826038, 8516632 ####[facility] (DEFAULT)[address] [place] [address] 41803 Urea nitrogen [Mass/Vol] 44 mg/dL High 8-26 [facility] Comment on above: Performed By: #### 1 [id number], 15128834, 3758907 ####[facility] (DEFAULT)[address] [place] [address] 78697 Urea nitrogen/Creatinine [Mass ratio] 42.0 mg/mg High 4.6-16.2 [facility] Comment on above: Performed By: #### 1 [id number], 80842636, 6819407 ####[facility] (DEFAULT)[address] [place] [address] 85136 CBC w/ Auto Diffon 2 Erythrocyte distribution width (RBC) [Ratio] 13.4 % Normal 11.5-15.0 [facility] Comment on above: Performed By: #### 1 [id number], 20808139, 7518694 ####[facility] (DEFAULT)[address] [place] [address] 13201 Hematocrit (Bld) [Volume fraction] 30.0 % Low 34.8-51.9 [facility] Comment on above: Performed By: #### 1 [id number], [id number], 6261387 ####[facility] (DEFAULT)[address] [place] [address] 20092 Hemoglobin (Bld) [Mass/Vol] 9.5 g/dL Low 11.8-17.7 [facility] Comment on above: Performed By: #### 1 [id number], [id number], [id number] ####[facility] (DEFAULT)[address] [place] [address] 76838 Instr WBC 9.2 x10 Invalid Interpretation Code [facility] Comment on above: Performed By: #### 1 [id number], [id number], [id number] ####[facility] (DEFAULT)[address] [place] [address] 03523 Man Diff? Auto Normal [facility] Comment on above: Performed By: #### 1 [id number], [id number], [id number] ####[facility] (DEFAULT)[address] [place] [address] 34037 MCH (RBC) [Entitic mass] 29 pg Normal 24-34 [facility] Comment on above: Performed By: #### 1 [id number], [id number], [id number] ####[facility] (DEFAULT)[address] [place] [address] 33092 MCHC (RBC) [Mass/Vol] 32 g/dL Normal 26-37 [facility] Comment on above: Performed By: #### 1 [id number], [id number], [id number] ####[facility] (DEFAULT)[address] [place] [address] 23181 MCV (RBC) [Entitic vol] 91 fL Normal 81-100 [facility] Comment on above: Performed By: #### 1 [id number], [id number], [id number] ####[facility] (DEFAULT)[address] [place] [address] 18970 Platelet 253 x10 Normal 138-427 [facility] Comment on above: Performed By: #### 1 [id number], [id number], [id number] ####[facility] (DEFAULT)[address] [place] [address] Platelet mean volume (Bld) [Entitic vol] 11.1 fL High 6.3-10.2 [facility] Comment on above: Performed By: #### 1 [id number], [id number], [id number] ####[facility] (DEFAULT)[address] [place] [address] RBC 3.29 x10 Low 3.70-5.30 [facility] Comment on above: Performed By: #### 1 [id number], [id number], [id number] ####[facility] (DEFAULT)[address] [place] [address] WBC 9.2 x10 Normal 3.5-10.5 [facility] Comment on above: Performed By: #### 1 [id number], [id number], [id number] ####[facility] (DEFAULT)[address] [place] [address] Education Noteon 07-23-2022 Education Note Normal [facility] Inpatient Clinical Summaryon 07-23-2022 Inpatient Clinical Summary Normal [facility] Inpatient Patient Summaryon 07-23-2022 Inpatient Patient Summary Normal [facility] Nutrition Noteon 07-23-2022 Nutrition Note Normal [facility] POCT Glucose Levelon 022 Glucose [Mass/Vol] 221 mg/dL High 74-118 [facility] Comment on above: Performed By: #### 4 [id number] ####[facility] (DEFAULT)[address] [place] [address] Glucose [Mass/Vol] 68 mg/dL Low 74-118 [facility] Comment on above: Performed By: #### 4 [id number] ####[facility] (DEFAULT)[address] [place] [address] Pharmacy Noteon 07-23-2022 Pharmacy Note Normal [facility] .Auto Diff 1on 07-22-2022 Auto [place] % 8 % Normal 1-12 [facility] Comment on above: Performed By: #### 1 [id number], [id number], [id number] ####[facility] (DEFAULT)[address] [place] [address] 70331 Baso Abs# 0.0 x10 Normal 0.0-0.2 [facility] Comment on above: Performed By: #### 1 [id number], [id number], [id number] ####[facility] (DEFAULT)[address] [place] [address] 05210 Basophils/100 WBC (Bld) 0.2 % Normal 0.2-2.0 [facility] Comment on above: Performed By: #### 1 [id number], [id number], 35905325 ####[facility] (DEFAULT)[address] [place] [address] 59687 Eos Abs# 0.2 x10 Normal 0.0-0.4 [facility] Comment on above: Performed By: #### 1 [id number], [id number], 06646671 ####[facility] (DEFAULT)[address] [place] [address] 08861 Eosinophils/100 WBC (Bld) 2.3 % Normal 0.9-4.0 [facility] Comment on above: Performed By: #### 1 [id number], [id number], [id number] ####[facility] (DEFAULT)[address] [place] [address] 66679 Lymph Abs# 2.6 x10 Normal 1.3-2.9 [facility] Comment on above: Performed By: #### 1 [id number], [id number], [id number] ####[facility] (DEFAULT)[address] [place] [address] 18337 Lymphocytes/100 WBC (Bld) 31 % Normal 14-48 [facility] Comment on above: Performed By: #### 1 [id number], 6025485, 61356786 ####[facility] (DEFAULT)[address] [place] [address] 33743 [place] Abs# 0.7 x10 Normal 0.0-0.8 [facility] Comment on above: Performed By: #### 1 [id number], [id number], [id number] ####[facility] (DEFAULT)[address] [place] [address] 50933 Neut Abs# 4.9 x10 Normal 1.5-9.2 [facility] Comment on above: Performed By: #### 1 [id number], 4095429, 93616113 ####[facility] (DEFAULT)[address] [place] [address] 63250 Neutrophils/100 WBC (Bld) 59 % Normal 44-88 [facility] Comment on above: Performed By: #### 1 [id number], 4865736, 60967650 ####[facility] (DEFAULT)[address] [place] [address] 53530 BMP Standardon 07-22-2022 eGFR Non AA 57 mL/min/1.73m2 Invalid Interpretation Code [facility] Comment on above: Order Comment: I spo ke with Darline Thacker Nursing Patient Care Technician/RN and asked if this blood work needs to be done at 0600. She said no that it can be done sooner. 07/22/2022 04:03:17 EDT Performed By: #### 1 [id number], [id number], [id number] ####[facility] (DEFAULT)[address] [place] [address] 25332 eGFR AA >60 Invalid Interpretation Code [facility] Comment on above: Order Comment: I spo ke with Darline Thacker Nursing Patient Care Technician/RN and asked if this blood work needs to be done at 0600. She said no that it can be done sooner. 07/22/2022 04:03:17 EDT Result Comment: Publishing Director lokesh Kidney disease could be indicated at eGFRs of less than 60 ml/min/1.73m2. Kidney Failure is indicated at less than 15 ml/min/1.73m2 Performed By: #### 1 [id number], 3277060, [id number] ####[facility] (DEFAULT)[address] [place] [address] 85870 Anion gap [Moles/Vol] 12.0 mmol/L Normal 5.0-19.0 [facility] Comment on above: Order Comment: I spo ke with Darline Thacker Nursing Patient Care Technician/RN and asked if this blood work needs to be done at 0600. She said no that it can be done sooner. 07/22/2022 04:03:17 EDT Performed By: #### 1 [id number], [id number], 92410723 ####[facility] (DEFAULT)[address] [place] [address] 93826 Calcium [Mass/Vol] 8.6 mg/dL Low 8.9-10.3 [facility] Comment on above: Order Comment: I spo ke with Darline Thacker Nursing Patient Care Technician/RN and asked if this blood work needs to be done at 0600. She said no that it can be done sooner. 07/22/2022 04:03:17 EDT Performed By: #### 1 [id number], [id number], [id number] ####[facility] (DEFAULT)[address] [place] [address] 23964 Chloride [Moles/Vol] 106 mmol/L Normal 101-111 [facility] Comment on above: Order Comment: I spo ke with Darline Thacker Nursing Patient Care Technician/RN and asked if this blood work needs to be done at 0600. She said no that it can be done sooner. 07/22/2022 04:03:17 EDT Performed By: #### 1 [id number], [id number], [id number] ####[facility] (DEFAULT)[address] [place] [address] 38210 CO2 [Moles/Vol] 23 mmol/L Normal 21-32 [facility] Comment on above: Order Comment: I spo ke with Darline Thacker Nursing Patient Care Technician/RN and asked if this blood work needs to be done at 0600. She said no that it can be done sooner. 07/22/2022 04:03:17 EDT Performed By: #### 1 [id number], [id number], [id number] ####[facility] (DEFAULT)[address] [place] [address] 46632 Creatinine [Mass/Vol] 1.26 mg/dL Normal 0.90-1.30 [facility] Comment on above: Order Comment: I spo ke with Darline Thacker Nursing Patient Care Technician/RN and asked if this blood work needs to be done at 0600. She said no that it can be done sooner. 07/22/2022 04:03:17 EDT Performed By: #### 1 [id number], [id number], [id number] ####[facility] (DEFAULT)[address] [place] [address] 84494 Glucose [Mass/Vol] 270.0 mg/dL High 74.0-118.0 [facility] Comment on above: Order Comment: I spo ke with Darline Thacker Nursing Patient Care Technician/RN and asked if this blood work needs to be done at 0600. She said no that it can be done sooner. 07/22/2022 04:03:17 EDT Performed By: #### 1 [id number], [id number], [id number] ####[facility] (DEFAULT)[address] [place] [address] 82219 Osmolality 294 mOsm/L Invalid Interpretation Code [facility] Comment on above: Order Comment: I spo ke with Darline Thacker Nursing Patient Care Technician/RN and asked if this blood work needs to be done at 0600. She said no that it can be done sooner. 07/22/2022 04:03:17 EDT Performed By: #### 1 [id number], [id number], [id number] ####[facility] (DEFAULT)[address] [place] [address] 07592 Potassium [Moles/Vol] 5.2 mmol/L High 3.6-5.1 [facility] Comment on above: Order Comment: I spo ke with Darline Thacker Nursing Patient Care Technician/RN and asked if this blood work needs to be done at 0600. She said no that it can be done sooner. 07/22/2022 04:03:17 EDT Performed By: #### 1 [id number], [id number], [id number] ####[facility] (DEFAULT)[address] [place] [address] 25451 Sodium [Moles/Vol] 136.0 mmol/L Normal 136.0-144.0 [facility] Comment on above: Order Comment: I spo ke with Darline Thacker Nursing Patient Care Technician/RN and asked if this blood work needs to be done at 0600. She said no that it can be done sooner. 07/22/2022 04:03:17 EDT Performed By: #### 1 [id number], [id number], [id number] ####[facility] (DEFAULT)[address] [place] [address] Urea nitrogen [Mass/Vol] 49 mg/dL High 8-26 [facility] Comment on above: Order Comment: I spo ke with Darline Thacker Nursing Patient Care Technician/RN and asked if this blood work needs to be done at 0600. She said no that it can be done sooner. 07/22/2022 04:03:17 EDT Performed By: #### 1 [id number], [id number], [id number] ####[facility] (DEFAULT)[address] [place] [address] Urea nitrogen/Creatinine [Mass ratio] 39.0 mg/mg High 4.6-16.2 [facility] Comment on above: Order Comment: I spo ke with Darline Thacker Nursing Patient Care Technician/RN and asked if this blood work needs to be done at 0600. She said no that it can be done sooner. 07/22/2022 04:03:17 EDT Performed By: #### 1 [id number], [id number], [id number] ####[facility] (DEFAULT)[address] [place] [address] CBC w/ Auto Diffon Erythrocyte distribution width (RBC) [Ratio] 13.4 % Normal 11.5-15.0 [facility] Comment on above: Order Comment: I spo ke with Darline Thacker Nursing Patient Care Technician/RN and asked if this blood work needs to be done at 0600. She said no that it can be done sooner. 07/22/2022 04:03:17 EDT Performed By: #### 1 [id number], 4056811, [id number] ####[facility] (DEFAULT)[address] [place] [address] Hematocrit (Bld) [Volume fraction] 28.6 % Low 34.8-51.9 [facility] Comment on above: Order Comment: I spo ke with Darline Thacker Nursing Patient Care Technician/RN and asked if this blood work needs to be done at 0600. She said no that it can be done sooner. 07/22/2022 04:03:17 EDT Performed By: #### 1 [id number], [id number], [id number] ####[facility] (DEFAULT)[address] [place] [address] 49023 Hemoglobin (Bld) [Mass/Vol] 9.2 g/dL Low 11.8-17.7 [facility] Comment on above: Order Comment: I spo ke with Darline Thacker Nursing Patient Care Technician/RN and asked if this blood work needs to be done at 0600. She said no that it can be done sooner. 07/22/2022 04:03:17 EDT Performed By: #### 1 [id number], 8538551, 40607852 ####[facility] (DEFAULT)[address] [place] [address] Instr WBC 8.3 x10 Invalid Interpretation Code [facility] Comment on above: Order Comment: I spo ke with Darline Thacker Nursing Patient Care Technician/RN and asked if this blood work needs to be done at 0600. She said no that it can be done sooner. 07/22/2022 04:03:17 EDT Performed By: #### 1 [id number], [id number], [id number] ####[facility] (DEFAULT)[address] [place] [address] 34304 Man Diff? Auto Normal [facility] Comment on above: Order Comment: I spo ke with Darline Thacker Nursing Patient Care Technician/RN and asked if this blood work needs to be done at 0600. She said no that it can be done sooner. 07/22/2022 04:03:17 EDT Performed By: #### 1 [id number], [id number], [id number] ####[facility] (DEFAULT)[address] [place] [address] 14598 MCH (RBC) [Entitic mass] 30 pg Normal 24-34 [facility] Comment on above: Order Comment: I spo ke with Darline Thacker Nursing Patient Care Technician/RN and asked if this blood work needs to be done at 0600. She said no that it can be done sooner. 07/22/2022 04:03:17 EDT Performed By: #### 1 [id number], [id number], [id number] ####[facility] (DEFAULT)[address] [place] [address] 74978 MCHC (RBC) [Mass/Vol] 32 g/dL Normal 26-37 [facility] Comment on above: Order Comment: I spo ke with Darline Thacker Nursing Patient Care Technician/RN and asked if this blood work needs to be done at 0600. She said no that it can be done sooner. 07/22/2022 04:03:17 EDT Performed By: #### 1 [id number], [id number], [id number] ####[facility] (DEFAULT)[address] [place] [address] 14856 MCV (RBC) [Entitic vol] 92 fL Normal 81-100 [facility] Comment on above: Order Comment: I spo ke with Darline Thacker Nursing Patient Care Technician/RN and asked if this blood work needs to be done at 0600. She said no that it can be done sooner. 07/22/2022 04:03:17 EDT Performed By: #### 1 [id number], [id number], 80960303 ####[facility] (DEFAULT)[address] [place] [address] 28293 Platelet 254 x10 Normal 138-427 [facility] Comment on above: Order Comment: I spo ke with Darline Thacker Nursing Patient Care Technician/RN and asked if this blood work needs to be done at 0600. She said no that it can be done sooner. 07/22/2022 04:03:17 EDT Performed By: #### 1 [id number], 5892435, 40948729 ####[facility] (DEFAULT)[address] [place] [address] 47463 Platelet mean volume (Bld) [Entitic vol] 11.3 fL High 6.3-10.2 [facility] Comment on above: Order Comment: I spo ke with Darline Thacker Nursing Patient Care Technician/RN and asked if this blood work needs to be done at 0600. She said no that it can be done sooner. 07/22/2022 04:03:17 EDT Performed By: #### 1 [id number], [id number], [id number] ####[facility] (DEFAULT)[address] [place] [address] 18524 RBC 3.12 x10 Low 3.70-5.30 [facility] Comment on above: Order Comment: I spo ke with Darline Kedar Nursing Patient Care Technician/RN and asked if this blood work needs to be done at 0600. She said no that it can be done sooner. 07/22/2022 04:03:17 EDT Performed By: #### 1 [id number], [id number], [id number] ####[facility] (DEFAULT)[address] [place] [address] 49421 WBC 8.3 x10 Normal 3.5-10.5 [facility] Comment on above: Order Comment: I spo ke with Darline Kedar Nursing Patient Care Technician/RN and asked if this blood work needs to be done at 0600. She said no that it can be done sooner. 07/22/2022 04:03:17 EDT Performed By: #### 1 [id number], [id number], [id number] ####[facility] (DEFAULT)[address] [place] [address] 33867 POCT Glucose Levelon 022 Glucose [Mass/Vol] 257 mg/dL High 74-118 [facility] Comment on above: Performed By: #### 4 [id number] ####[facility] (DEFAULT)[address] [place] [address] 71036 Glucose [Mass/Vol] 271 mg/dL High 74-118 [facility] Comment on above: Performed By: #### 4 [id number] ####[facility] (DEFAULT)[address] [place] [address] 25141 Glucose [Mass/Vol] 195 mg/dL High 74-118 [facility] Comment on above: Performed By: #### 4 [id number] ####[facility] (DEFAULT)[address] [place] [address] 17067 Glucose [Mass/Vol] 170 mg/dL High 74-118 [facility] Comment on above: Performed By: #### 4 [id number] ####[facility] (DEFAULT)[address] [place] [address] 45568 Progress Note - Nurseon 07-05 Progress Note - Nurse Normal [facility] .Auto Diff 1on 07-21-2022 Auto [place] % 6 % Normal 1-12 [facility] Comment on above: Performed By: #### 1 [id number], [id number], [id number] ####[facility] (DEFAULT)[address] [place] [address] 68705 Baso Abs# 0.0 x10 Normal 0.0-0.2 [facility] Comment on above: Performed By: #### 1 [id number], [id number], [id number] ####[facility] (DEFAULT)[address] [place] [address] 88238 Basophils/100 WBC (Bld) 0.2 % Normal 0.2-2.0 [facility] Comment on above: Performed By: #### 1 [id number], 17417913, [id number] ####[facility] (DEFAULT)[address] [place] [address] 39238 Eos Abs# 0.3 x10 Normal 0.0-0.4 [facility] Comment on above: Performed By: #### 1 [id number], 09631190, 3072221 ####[facility] (DEFAULT)[address] [place] [address] 73115 Eosinophils/100 WBC (Bld) 3.2 % Normal 0.9-4.0 [facility] Comment on above: Performed By: #### 1 [id number], 08887587, [id number] ####[facility] (DEFAULT)[address] [place] [address] 96188 Lymph Abs# 2.9 x10 Normal 1.3-2.9 [facility] Comment on above: Performed By: #### 1 [id number], 31148796, [id number] ####[facility] (DEFAULT)[address] [place] [address] 07799 Lymphocytes/100 WBC (Bld) 34 % Normal 14-48 [facility] Comment on above: Performed By: #### 1 [id number], 08384520, [id number] ####[facility] (DEFAULT)[address] [place] [address] [place] Abs# 0.6 x10 Normal 0.0-0.8 [facility] Comment on above: Performed By: #### 1 [id number], [id number], [id number] ####[facility] (DEFAULT)[address] [place] [address] Neut Abs# 4.8 x10 Normal 1.5-9.2 [facility] Comment on above: Performed By: #### 1 [id number], 12689949, 2639507 ####[facility] (DEFAULT)[address] [place] [address] Neutrophils/100 WBC (Bld) 56 % Normal 44-88 [facility] Comment on above: Performed By: #### 1 [id number], 34820553, [id number] ####[facility] (DEFAULT)[address] [place] [address] Standardon 07-21-2022 eGFR Non AA 49 mL/min/1.73m2 Invalid Interpretation Code [facility] Comment on above: Performed By: #### 1 [id number] ####[facility] (DEFAULT)[address] [place] [address] eGFR AA 59 mL/min/1.73m2 Invalid Interpretation Code [facility] Comment on above: Result Comment: Publishing Director lokesh Kidney disease could be indicated at eGFRs of less than 60 ml/min/1.73m2. Kidney Failure is indicated at less than 15 ml/min/1.73m2 Performed By: #### 1 [id number] ####[facility] (DEFAULT)[address] [place] [address] Anion gap [Moles/Vol] 12.0 mmol/L Normal 5.0-19.0 [facility] Comment on above: Performed By: #### 1 [id number] ####[facility] (DEFAULT)[address] [place] [address] Calcium [Mass/Vol] 8.6 mg/dL Low 8.9-10.3 [facility] Comment on above: Performed By: #### 1 [id number] ####[facility] (DEFAULT)[address] [place] [address] 67046 Chloride [Moles/Vol] 105 mmol/L Normal 101-111 [facility] Comment on above: Performed By: #### 1 [id number] ####[facility] (DEFAULT)[address] [place] [address] 32501 CO2 [Moles/Vol] 22 mmol/L Normal 21-32 [facility] Comment on above: Performed By: #### 1 [id number] ####[facility] (DEFAULT)[address] [place] [address] 96566 Creatinine [Mass/Vol] 1.44 mg/dL High 0.90-1.30 [facility] Comment on above: Performed By: #### 1 [id number] ####[facility] (DEFAULT)[address] [place] [address] 15002 Glucose [Mass/Vol] 290.0 mg/dL High 74.0-118.0 [facility] Comment on above: Performed By: #### 1 [id number] ####[facility] (DEFAULT)[address] [place] [address] 56768 Osmolality 291 mOsm/L Invalid Interpretation Code [facility] Comment on above: Performed By: #### 1 [id number] ####[facility] (DEFAULT)[address] [place] [address] 53888 Potassium [Moles/Vol] 5.6 mmol/L High 3.6-5.1 [facility] Comment on above: Performed By: #### 1 [id number] ####[facility] (DEFAULT)[address] [place] [address] 10538 Sodium [Moles/Vol] 133.0 mmol/L Low 136.0-144.0 [facility] Comment on above: Performed By: #### 1 [id number] ####[facility] (DEFAULT)[address] [place] [address] 71653 Urea nitrogen [Mass/Vol] 51 mg/dL High 8-26 [facility] Comment on above: Performed By: #### 1 [id number] ####[facility] (DEFAULT)[address] [place] [address] 41534 Urea nitrogen/Creatinine [Mass ratio] 35.0 mg/mg High 4.6-16.2 [facility] Comment on above: Performed By: #### 1 [id number] ####[facility] (DEFAULT)[address] [place] [address] 17070 eGFR Non AA 53 mL/min/1.73m2 Invalid Interpretation Code [facility] Comment on above: Order Comment: I spo ke with Esther Bautista RN and had asked if 0600 blood work had be done at 0600. She said no that they can be done at morning blood work draws at 0430. 07/21/2022 04:08:38 EDT Performed By: #### 1 [id number], [id number], [id number] ####[facility] (DEFAULT)[address] [place] [address] 18094 eGFR AA >60 Invalid Interpretation Code [facility] Comment on above: Order Comment: I spo ke with Esther Bautista RN and had asked if 0600 blood work had be done at 0600. She said no that they can be done at morning blood work draws at 0430. 07/21/2022 04:08:38 EDT Result Comment: Publishing Director lokesh Kidney disease could be indicated at eGFRs of less than 60 ml/min/1.73m2. Kidney Failure is indicated at less than 15 ml/min/1.73m2 Performed By: #### 1 [id number], [id number], [id number] ####[facility] (DEFAULT)[address] [place] [address] 53771 Anion gap [Moles/Vol] 11.0 mmol/L Normal 5.0-19.0 [facility] Comment on above: Order Comment: I spo ke with Esther Bautista RN and had asked if 0600 blood work had be done at 0600. She said no that they can be done at morning blood work draws at 0430. 07/21/2022 04:08:38 EDT Performed By: #### 1 [id number], [id number], [id number] ####[facility] (DEFAULT)[address] [place] [address] 48240 Calcium [Mass/Vol] 9.0 mg/dL Normal 8.9-10.3 [facility] Comment on above: Order Comment: I spo ke with Esther Bautista RN and had asked if 0600 blood work had be done at 0600. She said no that they can be done at morning blood work draws at 0430. 07/21/2022 04:08:38 EDT Performed By: #### 1 [id number], [id number], [id number] ####[facility] (DEFAULT)[address] [place] [address] 44058 Chloride [Moles/Vol] 106 mmol/L Normal 101-111 [facility] Comment on above: Order Comment: I spo ke with Esther Bautista RN and had asked if 0600 blood work had be done at 0600. She said no that they can be done at morning blood work draws at 0430. 07/21/2022 04:08:38 EDT Performed By: #### 1 [id number], [id number], [id number] ####[facility] (DEFAULT)[address] [place] [address] 81234 CO2 [Moles/Vol] 25 mmol/L Normal 21-32 [facility] Comment on above: Order Comment: I spo ke with Esther Bautista RN and had asked if 0600 blood work had be done at 0600. She said no that they can be done at morning blood work draws at 0430. 07/21/2022 04:08:38 EDT Performed By: #### 1 [id number], [id number], [id number] ####[facility] (DEFAULT)[address] [place] [address] 83340 Creatinine [Mass/Vol] 1.35 mg/dL High 0.90-1.30 [facility] Comment on above: Order Comment: I spo ke with Esther Bautista RN and had asked if 0600 blood work had be done at 0600. She said no that they can be done at morning blood work draws at 0430. 07/21/2022 04:08:38 EDT Performed By: #### 1 [id number], [id number], [id number] ####[facility] (DEFAULT)[address] [place] [address] Glucose [Mass/Vol] 137.0 mg/dL High 74.0-118.0 [facility] Comment on above: Order Comment: I spo ke with Esther Bautista RN and had asked if 0600 blood work had be done at 0600. She said no that they can be done at morning blood work draws at 0430. 07/21/2022 04:08:38 EDT Performed By: #### 1 [id number], [id number], [id number] ####[facility] (DEFAULT)[address] [place] [address] Osmolality 291 mOsm/L Invalid Interpretation Code [facility] Comment on above: Order Comment: I spo ke with Esther Bautista RN and had asked if 0600 blood work had be done at 0600. She said no that they can be done at morning blood work draws at 0430. 07/21/2022 04:08:38 EDT Performed By: #### 1 [id number], [id number], [id number] ####[facility] (DEFAULT)[address] [place] [address] Potassium [Moles/Vol] 5.7 mmol/L High 3.6-5.1 [facility] Comment on above: Order Comment: I spo ke with Esther Bautista RN and had asked if 0600 blood work had be done at 0600. She said no that they can be done at morning blood work draws at 0430. 07/21/2022 04:08:38 EDT Performed By: #### 1 [id number], [id number], [id number] ####[facility] (DEFAULT)[address] [place] [address] Sodium [Moles/Vol] 136.0 mmol/L Normal 136.0-144.0 [facility] Comment on above: Order Comment: I spo ke with Esther Bautista RN and had asked if 0600 blood work had be done at 0600. She said no that they can be done at morning blood work draws at 0430. 07/21/2022 04:08:38 EDT Performed By: #### 1 [id number], [id number], [id number] ####[facility] (DEFAULT)[address] [place] [address] 58895 Urea nitrogen [Mass/Vol] 59 mg/dL High 8-26 [facility] Comment on above: Order Comment: I spo ke with Esther Bautista RN and had asked if 0600 blood work had be done at 0600. She said no that they can be done at morning blood work draws at 0430. 07/21/2022 04:08:38 EDT Performed By: #### 1 [id number], [id number], [id number] ####[facility] (DEFAULT)[address] [place] [address] 32750 Urea nitrogen/Creatinine [Mass ratio] 44.0 mg/mg High 4.6-16.2 [facility] Comment on above: Order Comment: I spo ke with Esther Bautista RN and had asked if 0600 blood work had be done at 0600. She said no that they can be done at morning blood work draws at 0430. 07/21/2022 04:08:38 EDT Performed By: #### 1 [id number], [id number], [id number] ####[facility] (DEFAULT)[address] [place] [address] 19765 CBC w/ Auto Diffon Erythrocyte distribution width (RBC) [Ratio] 13.3 % Normal 11.5-15.0 [facility] Comment on above: Order Comment: I spo ke with Esther Bautista RN and had asked if 0600 blood work had be done at 0600. She said no that they can be done at morning blood work draws at 0430. 07/21/2022 04:08:38 EDT Performed By: #### 1 [id number], [id number], [id number] ####[facility] (DEFAULT)[address] [place] [address] 48196 Hematocrit (Bld) [Volume fraction] 32.3 % Low 34.8-51.9 [facility] Comment on above: Order Comment: I spo ke with Esther Bautista RN and had asked if 0600 blood work had be done at 0600. She said no that they can be done at morning blood work draws at 0430. 07/21/2022 04:08:38 EDT Performed By: #### 1 [id number], [id number], [id number] ####[facility] (DEFAULT)[address] [place] [address] 79207 Hemoglobin (Bld) [Mass/Vol] 10.4 g/dL Low 11.8-17.7 [facility] Comment on above: Order Comment: I spo ke with Esther Bautista RN and had asked if 0600 blood work had be done at 0600. She said no that they can be done at morning blood work draws at 0430. 07/21/2022 04:08:38 EDT Performed By: #### 1 [id number], [id number], [id number] ####[facility] (DEFAULT)[address] [place] [address] 59598 Instr WBC 8.6 x10 Invalid Interpretation Code [facility] Comment on above: Order Comment: I spo ke with Esther Bautista RN and had asked if 0600 blood work had be done at 0600. She said no that they can be done at morning blood work draws at 0430. 07/21/2022 04:08:38 EDT Performed By: #### 1 [id number], [id number], [id number] ####[facility] (DEFAULT)[address] [place] [address] 26618 Man Diff? Auto Normal [facility] Comment on above: Order Comment: I spo ke with Esther Bautista RN and had asked if 0600 blood work had be done at 0600. She said no that they can be done at morning blood work draws at 0430. 07/21/2022 04:08:38 EDT Performed By: #### 1 [id number], [id number], [id number] ####[facility] (DEFAULT)[address] [place] [address] 43039 MCH (RBC) [Entitic mass] 29 pg Normal 24-34 [facility] Comment on above: Order Comment: I spo ke with Esther Bautista RN and had asked if 0600 blood work had be done at 0600. She said no that they can be done at morning blood work draws at 0430. 07/21/2022 04:08:38 EDT Performed By: #### 1 [id number], [id number], [id number] ####[facility] (DEFAULT)[address] [place] [address] 38073 MCHC (RBC) [Mass/Vol] 32 g/dL Normal 26-37 [facility] Comment on above: Order Comment: I spo ke with Esther Bautista RN and had asked if 0600 blood work had be done at 0600. She said no that they can be done at morning blood work draws at 0430. 07/21/2022 04:08:38 EDT Performed By: #### 1 [id number], [id number], [id number] ####[facility] (DEFAULT)[address] [place] [address] 27953 MCV (RBC) [Entitic vol] 91 fL Normal 81-100 [facility] Comment on above: Order Comment: I spo ke with Esther Bautista RN and had asked if 0600 blood work had be done at 0600. She said no that they can be done at morning blood work draws at 0430. 07/21/2022 04:08:38 EDT Performed By: #### 1 [id number], [id number], [id number] ####[facility] (DEFAULT)[address] [place] [address] 06508 Platelet 250 x10 Normal 138-427 [facility] Comment on above: Order Comment: I spo ke with Esther Bautista RN and had asked if 0600 blood work had be done at 0600. She said no that they can be done at morning blood work draws at 0430. 07/21/2022 04:08:38 EDT Performed By: #### 1 [id number], [id number], [id number] ####[facility] (DEFAULT)[address] [place] [address] 34061 Platelet mean volume (Bld) [Entitic vol] 11.2 fL High 6.3-10.2 [facility] Comment on above: Order Comment: I spo ke with Esther Bautista RN and had asked if 0600 blood work had be done at 0600. She said no that they can be done at morning blood work draws at 0430. 07/21/2022 04:08:38 EDT Performed By: #### 1 [id number], [id number], [id number] ####[facility] (DEFAULT)[address] [place] [address] 53299 RBC 3.54 x10 Low 3.70-5.30 [facility] Comment on above: Order Comment: I spo ke with Esther Bautista RN and had asked if 0600 blood work had be done at 0600. She said no that they can be done at morning blood work draws at 0430. 07/21/2022 04:08:38 EDT Performed By: #### 1 [id number], [id number], [id number] ####[facility] (DEFAULT)[address] [place] [address] 53445 WBC 8.6 x10 Normal 3.5-10.5 [facility] Comment on above: Order Comment: I spo ke with Esther Bautista RN and had asked if 0600 blood work had be done at 0600. She said no that they can be done at morning blood work draws at 0430. 07/21/2022 04:08:38 EDT Performed By: #### 1 [id number], [id number], [id number] ####[facility] (DEFAULT)[address] [place] [address] 30922 Coding Summaryon 07-21-2022 Coding Summary Normal [facility] Nutrition Noteon 07-21-2022 Nutrition Note Normal [facility] POCT Glucose Levelon 022 Glucose [Mass/Vol] 360 mg/dL High 74-118 [facility] Comment on above: Performed By: #### 4 [id number] ####[facility] (DEFAULT)[address] [place] [address] 27791 Glucose [Mass/Vol] 274 mg/dL High 74-118 [facility] Comment on above: Performed By: #### 4 [id number] ####[facility] (DEFAULT)[address] [place] [address] 40462 Glucose [Mass/Vol] 128 mg/dL High 74-118 [facility] Comment on above: Performed By: #### 4 [id number] ####[facility] (DEFAULT)[address] [place] [address] 63148 US Kidney/Bladder Completeon 07-21-2022 US Kidney/Bladder Complete Normal [facility] .Auto Diff 1on 07-20-2022 Auto [place] % 7 % Normal 1-12 [facility] Comment on above: Performed By: #### 1 [id number], [id number], [id number] ####[facility] (DEFAULT)[address] [place] [address] 51755 Baso Abs# 0.0 x10 Normal 0.0-0.2 [facility] Comment on above: Performed By: #### 1 [id number], [id number], [id number] ####[facility] (DEFAULT)[address] [place] [address] 98761 Basophils/100 WBC (Bld) 0.2 % Normal 0.2-2.0 [facility] Comment on above: Performed By: #### 1 [id number], [id number], [id number] ####[facility] (DEFAULT)[address] [place] [address] 45876 Eos Abs# 0.4 x10 Normal 0.0-0.4 [facility] Comment on above: Performed By: #### 1 [id number], [id number], [id number] ####[facility] (DEFAULT)[address] [place] [address] 16802 Eosinophils/100 WBC (Bld) 4.5 % High 0.9-4.0 [facility] Comment on above: Performed By: #### 1 [id number], [id number], [id number] ####[facility] (DEFAULT)[address] [place] [address] 78685 Lymph Abs# 3.3 x10 High 1.3-2.9 [facility] Comment on above: Performed By: #### 1 [id number], [id number], [id number] ####[facility] (DEFAULT)[address] [place] [address] 17898 Lymphocytes/100 WBC (Bld) 33 % Normal 14-48 [facility] Comment on above: Performed By: #### 1 [id number], [id number], [id number] ####[facility] (DEFAULT)[address] [place] [address] 08363 [place] Abs# 0.7 x10 Normal 0.0-0.8 [facility] Comment on above: Performed By: #### 1 [id number], [id number], [id number] ####[facility] (DEFAULT)[address] [address] Neut Abs# 5.5 x10 Normal 1.5-9.2 [facility] Comment on above: Performed By: #### 1 [id number], [id number], [id number] ####[facility] (DEFAULT)[address] [address] Neutrophils/100 WBC (Bld) 55 % Normal 44-88 [facility] Comment on above: Performed By: #### 1 [id number], [id number], [id number] ####[facility] (DEFAULT)[address] [place] [address] BMP Standardon 07-20-2022 eGFR Non AA 44 mL/min/1.73m2 Invalid Interpretation Code [facility] Comment on above: Order Comment: I spo ke with Zahraa Saldivar RN on [address] [place] [address] and asked if this blood work needs to be done at 0600 or if it can be done sooner. She said that it can be done sooner. 07/20/2022 04:10:20 EDT Performed By: #### 1 [id number], [id number], [id number] ####[facility] (DEFAULT)[address] [place] [address] eGFR AA 53 mL/min/1.73m2 Invalid Interpretation Code [facility] Comment on above: Order Comment: I spo ke with Zahraa Saldivar RN on [address] [place] [address] and asked if this blood work needs to be done at 0600 or if it can be done sooner. She said that it can be done sooner. 07/20/2022 04:10:20 EDT Result Comment: Publishing Director lokesh Kidney disease could be indicated at eGFRs of less than 60 ml/min/1.73m2. Kidney Failure is indicated at less than 15 ml/min/1.73m2 Performed By: #### 1 [id number], [id number], [id number] ####[facility] (DEFAULT)[address] [place] [address] 55418 Anion gap [Moles/Vol] 12.0 mmol/L Normal 5.0-19.0 [facility] Comment on above: Order Comment: I spo ke with Zahraa Saldivar RN on [address] [place] [address] and asked if this blood work needs to be done at 0600 or if it can be done sooner. She said that it can be done sooner. 07/20/2022 04:10:20 EDT Performed By: #### 1 [id number], [id number], [id number] ####[facility] (DEFAULT)[address] [place] [address] 68754 Calcium [Mass/Vol] 9.1 mg/dL Normal 8.9-10.3 [facility] Comment on above: Order Comment: I spo ke with Zahraa Saldivar RN on [address] [place] [address] and asked if this blood work needs to be done at 0600 or if it can be done sooner. She said that it can be done sooner. 07/20/2022 04:10:20 EDT Performed By: #### 1 [id number], [id number], [id number] ####[facility] (DEFAULT)[address] [place] [address] 11380 Chloride [Moles/Vol] 104 mmol/L Normal 101-111 [facility] Comment on above: Order Comment: I spo ke with Zahraa Saldivar RN on [address] [place] [address] and asked if this blood work needs to be done at 0600 or if it can be done sooner. She said that it can be done sooner. 07/20/2022 04:10:20 EDT Performed By: #### 1 [id number], [id number], [id number] ####[facility] (DEFAULT)[address] [place] [address] 13522 CO2 [Moles/Vol] 24 mmol/L Normal 21-32 [facility] Comment on above: Order Comment: I spo ke with Zahraa Saldivar RN on [address] [place] [address] and asked if this blood work needs to be done at 0600 or if it can be done sooner. She said that it can be done sooner. 07/20/2022 04:10:20 EDT Performed By: #### 1 [id number], [id number], [id number] ####[facility] (DEFAULT)[address] [place] [address] 22116 Creatinine [Mass/Vol] 1.58 mg/dL High 0.90-1.30 [facility] Comment on above: Order Comment: I spo ke with Zahraa Saldivar RN on [address] [place] [address] and asked if this blood work needs to be done at 0600 or if it can be done sooner. She said that it can be done sooner. 07/20/2022 04:10:20 EDT Performed By: #### 1 [id number], [id number], [id number] ####[facility] (DEFAULT)[address] [place] [address] 39602 Glucose [Mass/Vol] 144.0 mg/dL High 74.0-118.0 [facility] Comment on above: Order Comment: I spo ke with Zahraa Saldivar RN on [address] [place] [address] and asked if this blood work needs to be done at 0600 or if it can be done sooner. She said that it can be done sooner. 07/20/2022 04:10:20 EDT Performed By: #### 1 [id number], [id number], [id number] ####[facility] (DEFAULT)[address] [place] [address] 87658 Osmolality 292 mOsm/L Invalid Interpretation Code [facility] Comment on above: Order Comment: I spo ke with Zahraa Saldivar RN on [address] [place] [address] and asked if this blood work needs to be done at 0600 or if it can be done sooner. She said that it can be done sooner. 07/20/2022 04:10:20 EDT Performed By: #### 1 [id number], [id number], [id number] ####[facility] (DEFAULT)[address] [place] [address] 84097 Potassium [Moles/Vol] 6.0 mmol/L High 3.6-5.1 [facility] Comment on above: Order Comment: I spo ke with Zahraa Saldivar RN on [address] [place] [address] and asked if this blood work needs to be done at 0600 or if it can be done sooner. She said that it can be done sooner. 07/20/2022 04:10:20 EDT Performed By: #### 1 [id number], [id number], [id number] ####[facility] (DEFAULT)[address] [place] [address] 91444 Sodium [Moles/Vol] 134.0 mmol/L Low 136.0-144.0 [facility] Comment on above: Order Comment: I spo ke with Zahraa Saldivar RN on [address] [place] [address] and asked if this blood work needs to be done at 0600 or if it can be done sooner. She said that it can be done sooner. 07/20/2022 04:10:20 EDT Performed By: #### 1 [id number], [id number], [id number] ####[facility] (DEFAULT)[address] [place] [address] 60250 Urea nitrogen [Mass/Vol] 71 mg/dL High 8-26 [facility] Comment on above: Order Comment: I spo ke with Zahraa Saldivar RN on [address] [place] [address] and asked if this blood work needs to be done at 0600 or if it can be done sooner. She said that it can be done sooner. 07/20/2022 04:10:20 EDT Performed By: #### 1 [id number], [id number], [id number] ####[facility] (DEFAULT)[address] [place] [address] 16154 Urea nitrogen/Creatinine [Mass ratio] 45.0 mg/mg High 4.6-16.2 [facility] Comment on above: Order Comment: I spo ke with Zahraa Saldivar RN on [address] [place] [address] and asked if this blood work needs to be done at 0600 or if it can be done sooner. She said that it can be done sooner. 07/20/2022 04:10:20 EDT Performed By: #### 1 [id number], [id number], [id number] ####[facility] (DEFAULT)[address] [place] [address] 00314 CBC w/ Auto Diffon 2 Erythrocyte distribution width (RBC) [Ratio] 13.2 % Normal 11.5-15.0 [facility] Comment on above: Order Comment: I spo ke with Zahraa Saldivar RN on [address] [place] [address] and asked if this blood work needs to be done at 0600 or if it can be done sooner. She said that it can be done sooner. 07/20/2022 04:10:20 EDT Performed By: #### 1 [id number], [id number], [id number] ####[facility] (DEFAULT)[address] [place] [address] Hematocrit (Bld) [Volume fraction] 32.0 % Low 34.8-51.9 [facility] Comment on above: Order Comment: I spo ke with Zahraa Saldivar RN on [address] [place] [address] and asked if this blood work needs to be done at 0600 or if it can be done sooner. She said that it can be done sooner. 07/20/2022 04:10:20 EDT Performed By: #### 1 [id number], [id number], [id number] ####[facility] (DEFAULT)[address] [place] [address] 63699 Hemoglobin (Bld) [Mass/Vol] 10.2 g/dL Low 11.8-17.7 [facility] Comment on above: Order Comment: I spo ke with Zahraa Saldivar RN on [address] [place] [address] and asked if this blood work needs to be done at 0600 or if it can be done sooner. She said that it can be done sooner. 07/20/2022 04:10:20 EDT Performed By: #### 1 [id number], [id number], [id number] ####[facility] (DEFAULT)[address] [place] [address] 72460 Instr WBC 10.0 x10 Invalid Interpretation Code [facility] Comment on above: Order Comment: I spo ke with Zahraa Saldivar RN on [address] [place] [address] and asked if this blood work needs to be done at 0600 or if it can be done sooner. She said that it can be done sooner. 07/20/2022 04:10:20 EDT Performed By: #### 1 [id number], [id number], [id number] ####[facility] (DEFAULT)[address] [place] [address] 84003 Man Diff? Auto Normal [facility] Comment on above: Order Comment: I spo ke with Zahraa Saldivar RN on [address] [place] [address] and asked if this blood work needs to be done at 0600 or if it can be done sooner. She said that it can be done sooner. 07/20/2022 04:10:20 EDT Performed By: #### 1 [id number], [id number], [id number] ####[facility] (DEFAULT)[address] [place] [address] 01529 MCH (RBC) [Entitic mass] 29 pg Normal 24-34 [facility] Comment on above: Order Comment: I spo ke with Zahraa Saldivar RN on [address] [place] [address] and asked if this blood work needs to be done at 0600 or if it can be done sooner. She said that it can be done sooner. 07/20/2022 04:10:20 EDT Performed By: #### 1 [id number], [id number], [id number] ####[facility] (DEFAULT)[address] [place] [address] 82536 MCHC (RBC) [Mass/Vol] 32 g/dL Normal 26-37 [facility] Comment on above: Order Comment: I spo ke with Zahraa Saldivar RN on [address] [place] [address] and asked if this blood work needs to be done at 0600 or if it can be done sooner. She said that it can be done sooner. 07/20/2022 04:10:20 EDT Performed By: #### 1 [id number], [id number], [id number] ####[facility] (DEFAULT)[address] [place] [address] 53087 MCV (RBC) [Entitic vol] 90 fL Normal 81-100 [facility] Comment on above: Order Comment: I spo ke with Zahraa Saldivar RN on [address] [place] [address] and asked if this blood work needs to be done at 0600 or if it can be done sooner. She said that it can be done sooner. 07/20/2022 04:10:20 EDT Performed By: #### 1 [id number], [id number], [id number] ####[facility] (DEFAULT)[address] [place] [address] 15976 Platelet 235 x10 Normal 138-427 [facility] Comment on above: Order Comment: I spo ke with Zahraa Saldivar RN on [address] [place] [address] and asked if this blood work needs to be done at 0600 or if it can be done sooner. She said that it can be done sooner. 07/20/2022 04:10:20 EDT Performed By: #### 1 [id number], [id number], [id number] ####[facility] (DEFAULT)[address] [place] [address] 90545 Platelet mean volume (Bld) [Entitic vol] 12.3 fL High 6.3-10.2 [facility] Comment on above: Order Comment: I spo ke with Zahraa Saldivar RN on [address] [place] [address] and asked if this blood work needs to be done at 0600 or if it can be done sooner. She said that it can be done sooner. 07/20/2022 04:10:20 EDT Performed By: #### 1 [id number], [id number], [id number] ####[facility] (DEFAULT)[address] [place] [address] 75241 RBC 3.55 x10 Low 3.70-5.30 [facility] Comment on above: Order Comment: I spo ke with Zahraa Saldivar RN on [address] [place] [address] and asked if this blood work needs to be done at 0600 or if it can be done sooner. She said that it can be done sooner. 07/20/2022 04:10:20 EDT Performed By: #### 1 [id number], [id number], [id number] ####[facility] (DEFAULT)[address] [place] [address] 40817 WBC 10.0 x10 Normal 3.5-10.5 [facility] Comment on above: Order Comment: I spo ke with Zahraa Saldivar RN on [address] [place] [address] and asked if this blood work needs to be done at 0600 or if it can be done sooner. She said that it can be done sooner. 07/20/2022 04:10:20 EDT Performed By: #### 1 [id number], [id number], [id number] ####[facility] (DEFAULT)[address] [place] [address] 96821 Glucoseon 07-20-2022 Glucose [Mass/Vol] 424.0 mg/dL High 74.0-118.0 [facility] Comment on above: Performed By: #### 2 [id number] ####[facility] (DEFAULT)[address] [place] [address] 46731 POCT Glucose Levelon 022 Glucose [Mass/Vol] 473 mg/dL Critically abnormal [address] [place] [address] Comment on above: Performed By: #### 4 [id number] ####[facility] (DEFAULT)[address] [place] [address] 70356 Glucose [Mass/Vol] 522 mg/dL Critically abnormal [address] [place] [address] Comment on above: Performed By: #### 4 [id number] ####[facility] (DEFAULT)[address] [place] [address] 48264 Glucose [Mass/Vol] 292 mg/dL High [address] [place] [address] Comment on above: Performed By: #### 4 [id number] ####[facility] (DEFAULT)[address] [place] [address] 18967 Glucose [Mass/Vol] 293 mg/dL High [address] [place] [address] Comment on above: Performed By: #### 4 [id number] ####[facility] (DEFAULT)[address] [place] [address] 69512 Glucose [Mass/Vol] 110 mg/dL Normal [address] Comment on above: Performed By: #### 4 [id number] ####[facility] (DEFAULT)[address] [place] [address] 36254 Glucose [Mass/Vol] 137 mg/dL High [address] [place] [address] Comment on above: Performed By: #### 4 [id number] ####[facility] (DEFAULT)[address] [place] [address] 08056 Progress Note - Nurseon - Progress Note - Nurse Normal [facility] .Auto Diff 1on 07-19-2022 Auto [place] % 8 % Normal 10-16 [facility] Comment on above: Performed By: #### 1 [id number], 7234455, [id number] ####[facility] (DEFAULT)[address] [place] [address] 03091 Baso Abs# 0.0 x10 Normal 0.0-0.2 [facility] Comment on above: Performed By: #### 1 [id number], 2285242, [id number] ####[facility] (DEFAULT)[address] [place] [address] 87663 Basophils/100 WBC (Bld) 0.2 % Normal 0.2-2.0 [facility] Comment on above: Performed By: #### 1 2420670, 4926653, [id number] ####[facility] (DEFAULT)[address] [place] [address] 70132 Eos Abs# 0.6 x10 High 0.0-0.4 [facility] Comment on above: Performed By: #### 1 1449781, 0658141, [id number] ####[facility] (DEFAULT)[address] [place] [address] 70418 Eosinophils/100 WBC (Bld) 4.6 % High 0.9-4.0 [facility] Comment on above: Performed By: #### 1 0943768, 1736385, [id number] ####[facility] (DEFAULT)[address] [place] [address] 73681 Lymph Abs# 3.2 x10 High 1.3-2.9 [facility] Comment on above: Performed By: #### 1 7031824, 6670189, [id number] ####[facility] (DEFAULT)[address] [place] [address] 21952 Lymphocytes/100 WBC (Bld) 27 % Normal 14-48 [facility] Comment on above: Performed By: #### 1 9629867, 4610413, [id number] ####[facility] (DEFAULT)[address] [place] [address] 52547 [place] Abs# 0.9 x10 High 0.0-0.8 [facility] Comment on above: Performed By: #### 1 0846513, 3655227, [id number] ####[facility] (DEFAULT)[address] [place] [address] Neut Abs# 7.3 x10 Normal 1.5-9.2 [facility] Comment on above: Performed By: #### 1 0789543, 4714927, [id number] ####[facility] (DEFAULT)[address] [place] [address] 45514 Neutrophils/100 WBC (Bld) 61 % Normal 44-88 [facility] Comment on above: Performed By: #### 1 3111946, 1922761, [id number] ####[facility] (DEFAULT)[address] [place] [address] 89127[facility] Standardon 07-19-2022 eGFR Non AA 37 mL/min/1.73m2 Invalid Interpretation Code [facility] Comment on above: Performed By: #### 1 0867205, 9199266, [id number] ####[facility] (DEFAULT)[address] [place] [address] 39428 eGFR AA 45 mL/min/1.73m2 Invalid Interpretation Code [facility] Comment on above: Result Comment: Publishing Director lokesh Kidney disease could be indicated at eGFRs of less than 60 ml/min/1.73m2. Kidney Failure is indicated at less than 15 ml/min/1.73m2 Performed By: #### 1 9609526, 2156354, [id number] ####[facility] (DEFAULT)[address] [place] [address] 39087 Anion gap [Moles/Vol] 16.0 mmol/L Normal 5.0-19.0 [facility] Comment on above: Performed By: #### 1 2873925, 1896698, [id number] ####[facility] (DEFAULT)[address] [place] [address] 98433 Calcium [Mass/Vol] 9.0 mg/dL Normal 8.9-10.3 [facility] Comment on above: Performed By: #### 1 2637524, 8619902, 8265846986 ####[facility] (DEFAULT)[address] [place] [address] 77452 Chloride [Moles/Vol] 102 mmol/L Normal 101-111 [facility] Comment on above: Performed By: #### 1 1766616, 4665613, [id number] ####[facility] (DEFAULT)[address] [place] [address] 32495 CO2 [Moles/Vol] 21 mmol/L Normal 21-32 [facility] Comment on above: Performed By: #### 1 5417614, 0571714, [id number] ####[facility] (DEFAULT)[address] [place] [address] 13913 Creatinine [Mass/Vol] 1.83 mg/dL High 0.90-1.30 [facility] Comment on above: Performed By: #### 1 5264723, 3339376, 1486078949 ####[facility] (DEFAULT)[address] [place] [address] 12673 Glucose [Mass/Vol] 180.0 mg/dL High 74.0-118.0 [facility] Comment on above: Performed By: #### 1 9931523, 0684183, [id number] ####[facility] (DEFAULT)[address] [place] [address] 66404 Osmolality 294 mOsm/L Invalid Interpretation Code [facility] Comment on above: Performed By: #### 1 3332379, 8482859, [id number] ####[facility] (DEFAULT)[address] [place] [address] 44884 Potassium [Moles/Vol] 6.1 mmol/L High 3.6-5.1 [facility] Comment on above: Performed By: #### 1 3322917, 2834754, [id number] ####[facility] (DEFAULT)[address] [place] [address] 74592 Sodium [Moles/Vol] 133.0 mmol/L Low 136.0-144.0 [facility] Comment on above: Performed By: #### 1 8683038, 5548942, [id number] ####[facility] (DEFAULT)[address] [place] [address] 69107 Urea nitrogen [Mass/Vol] 76 mg/dL High 8-26 [facility] Comment on above: Performed By: #### 1 7430387, 6714953, [id number] ####[facility] (DEFAULT)[address] [place] [address] Urea nitrogen/Creatinine [Mass ratio] 42.0 mg/mg High 4.6-16.2 [facility] Comment on above: Performed By: #### 1 3578841, 6274149, 4719341891 ####[facility] (DEFAULT)[address] [place] [address] CBC w/ Auto Diffon Erythrocyte distribution width (RBC) [Ratio] 13.2 % Normal 11.5-15.0 [facility] Comment on above: Performed By: #### 1 4966237, 2014325, [id number] ####[facility] (DEFAULT)[address] [place] [address] Hematocrit (Bld) [Volume fraction] 35.5 % Normal 34.8-51.9 [facility] Comment on above: Performed By: #### 1 7441237, 4970738, [id number] ####[facility] (DEFAULT)[address] [place] [address] Hemoglobin (Bld) [Mass/Vol] 11.5 g/dL Low 11.8-17.7 [facility] Comment on above: Performed By: #### 1 2684537, 0862492, [id number] ####[facility] (DEFAULT)[address] [place] [address] Instr WBC 12.1 x10 Invalid Interpretation Code [facility] Comment on above: Performed By: #### 1 9954317, 1223696, [id number] ####[facility] (DEFAULT)[address] [place] [address] Man Diff? Auto Normal [facility] Comment on above: Performed By: #### 1 2026895, 1220135, [id number] ####[facility] (DEFAULT)[address] [place] [address] 40693 MCH (RBC) [Entitic mass] 29 pg Normal 24-34 [facility] Comment on above: Performed By: #### 1 8989886, 9895189, [id number] ####[facility] (DEFAULT)[address] [place] [address] MCHC (RBC) [Mass/Vol] 32 g/dL Normal 26-37 [facility] Comment on above: Performed By: #### 1 1484518, 3478889, [id number] ####[facility] (DEFAULT)[address] [place] [address] MCV (RBC) [Entitic vol] 90 fL Normal 81-100 [facility] Comment on above: Performed By: #### 1 3382966, 3118832, [id number] ####[facility] (DEFAULT)[address] [place] [address] Platelet 182 x10 Normal 138-427 [facility] Comment on above: Performed By: #### 1 9580187, 6552087, [id number] ####[facility] (DEFAULT)[address] [place] [address] Platelet mean volume (Bld) [Entitic vol] 12.3 fL High 6.3-10.2 [facility] Comment on above: Performed By: #### 1 8140942, 0610641, [id number] ####[facility] (DEFAULT)[address] [place] [address] RBC 3.93 x10 Normal 3.70-5.30 [facility] Comment on above: Performed By: #### 1 2618765, 2251966, [id number] ####[facility] (DEFAULT)[address] [place] [address] WBC 12.1 x10 High 3.5-10.5 [facility] Comment on above: Performed By: #### 1 8031159, 8798158, [id number] ####[facility] (DEFAULT)[address] [place] [address] Glucoseon 07-19-2022 Glucose [Mass/Vol] 388.0 mg/dL High 74.0-118.0 [facility] Comment on above: Performed By: #### 2 [id number] ####[facility] (DEFAULT)[address] [place] [address] 22266 POCT Glucose Levelon 022 Glucose [Mass/Vol] 215 mg/dL High [address] [place] [address] Comment on above: Performed By: #### 4 [id number] ####[facility] (DEFAULT)[address] [place] [address] 03140 Glucose [Mass/Vol] 234 mg/dL High [address] [place] [address] Comment on above: Performed By: #### 4 [id number] ####[facility] (DEFAULT)[address] [place] [address] 30600 Glucose [Mass/Vol] 318 mg/dL High [address] [place] [address] Comment on above: Performed By: #### 4 [id number] ####[facility] (DEFAULT)[address] [place] [address] 49542 Glucose [Mass/Vol] 452 mg/dL Critically abnormal [address] [place] [address] Comment on above: Performed By: #### 4 [id number] ####[facility] (DEFAULT)[address] [place] [address] Glucose [Mass/Vol] 444 mg/dL Critically abnormal [address] [place] [address] Comment on above: Performed By: #### 4 [id number] ####[facility] (DEFAULT)[address] [place] [address] 32032 Glucose [Mass/Vol] 186 mg/dL High [address] [place] [address] Comment on above: Performed By: #### 4 [id number] ####[facility] (DEFAULT)[address] [place] [address] Pharmacy Noteon 07-19-2022 Pharmacy Note Normal [facility] UA w Culture if Ind Standard on 07-19-2022 Breakpoint UA Normal [facility] Comment on above: Performed By: #### 1 [id number] ####[facility] (DEFAULT)[address] [place] [address] 46853 Color (U) Yellow Normal [facility] Comment on above: Performed By: #### 1 [id number] ####[facility] (DEFAULT)[address] [place] [address] Culture? Not Indicated Invalid Interpretation Code [facility] Comment on above: Result Comment: Resu lt created by rule GL_MAGR_ADD_UA_CULT1 Performed By: #### 1 [id number] ####[facility] (DEFAULT)[address] [place] [address] Glucose (U) [Mass/Vol] 100 mg/dL Normal [facility] Comment on above: Performed By: #### 1 [id number] ####[facility] (DEFAULT)[address] [place] [address] Ketones Ql (U) TRACE Normal [facility] Comment on above: Performed By: #### 1 [id number] ####[facility] (DEFAULT)[address] [place] [address] Micro? Not Indicated Invalid Interpretation Code [facility] Comment on above: Result Comment: Resu lt created by rule GL_MAGR_ADD_UA_MICRO Performed By: #### 1 [id number] ####[facility] (DEFAULT)[address] [place] [address] UA Bilirubin Negative Normal [facility] Comment on above: Performed By: #### 1 [id number] ####[facility] (DEFAULT)[address] [place] [address] UA Blood Negative Normal NEGATIVE [facility] Comment on above: Performed By: #### 1 [id number] ####[facility] (DEFAULT)[address] [place] [address] 40718 UA Clarity CLEAR Normal CLEAR [facility] Comment on above: Performed By: #### 1 [id number] ####[facility] (DEFAULT)[address] [place] [address] 47358 UA Leuk Est Negative Normal NEGATIVE [facility] Comment on above: Performed By: #### 1 [id number] ####[facility] (DEFAULT)[address] [place] [address] 93286 UA Nitrite Negative Normal NEGATIVE [facility] Comment on above: Performed By: #### 1 [id number] ####[facility] (DEFAULT)[address] [place] [address] 03715 UA pH 5.5 Normal 5-8 [facility] Comment on above: Performed By: #### 1 [id number] ####[facility] (DEFAULT)[address] [place] [address] 85873 UA Protein Negative Normal NEGATIVE [facility] Comment on above: Performed By: #### 1 [id number] ####[facility] (DEFAULT)[address] [place] [address] 16711 UA Spec Grav 1.015 Normal 1.001-1.035 [facility] Comment on above: Performed By: #### 1 [id number] ####[facility] (DEFAULT)[address] [place] [address] 01839 UA Urobilinogen 0.2 mg/dL Normal 0.2-1.0 [facility] Comment on above: Performed By: #### 1 [id number] ####[facility] (DEFAULT)[address] [place] [address] 01018 Urine Source Clean Catch Normal [facility] Comment on above: Performed By: #### 1 [id number] ####[facility] (DEFAULT)[address] [place] [address] 59793 XR Abdomen Single View (KUB) on 07-19-2022 XR Abdomen Single View (KUB) Normal [facility] Nutrition Noteon 07-18-2022 Nutrition Note Normal [facility] POCT Glucose Levelon 022 Glucose [Mass/Vol] 350 mg/dL High 74-118 [facility] Comment on above: Performed By: #### 4 [id number] ####[facility] (DEFAULT)[address] [place] [address] 73875 Glucose [Mass/Vol] 366 mg/dL High 74-118 [facility] Comment on above: Performed By: #### 4 [id number] ####[facility] (DEFAULT)[address] [place] [address] 17356 Glucose [Mass/Vol] 383 mg/dL High 74-118 [facility] Comment on above: Performed By: #### 4 [id number] ####[facility] (DEFAULT)[address] [place] [address] 46051 Glucose [Mass/Vol] 112 mg/dL Normal 74-118 [facility] Comment on above: Performed By: #### 4 [id number] ####[facility] (DEFAULT)[address] [place] [address] 89775 Glucose [Mass/Vol] 109 mg/dL Normal [address] [place] [address] Comment on above: Performed By: #### 4 [id number] ####[facility] (DEFAULT)[address] [place] [address] 12830 Glucose [Mass/Vol] 136 mg/dL High [address] [place] [address] Comment on above: Performed By: #### 4 [id number] ####[facility] (DEFAULT)[address] [place] [address] 74401 Consent Formson 07-17-2022 Consent Forms [id number]#1.0 0OTGTIFF Normal [facility] POCT Glucose Levelon 022 Glucose [Mass/Vol] 327 mg/dL High [address] [place] [address] Comment on above: Performed By: #### 4 [id number] ####[facility] (DEFAULT)[address] [place] [address] 81152 Glucose [Mass/Vol] 220 mg/dL High [address] [place] [address] Comment on above: Performed By: #### 4 [id number] ####[facility] (DEFAULT)[address] [place] [address] 80942 Glucose [Mass/Vol] 245 mg/dL High [address] [place] [address] Comment on above: Performed By: #### 4 [id number] ####[facility] (DEFAULT)[address] [place] [address] 46316 Glucose [Mass/Vol] 81 mg/dL Normal [address] [place] [address] Comment on above: Performed By: #### 4 [id number] ####[facility] (DEFAULT)[address] [place] [address] 89246 Glucose [Mass/Vol] 49 mg/dL Critically abnormal [address] [place] [address] Comment on above: Performed By: #### 4 [id number] ####[facility] (DEFAULT)[address] [place] [address] 46324 Telemetry Stripson Telemetry Strips [id number]#1.00 OTGTIFF [facility] Coding Queryon 07-16-2022 Coding Query Normal [facility] Glucoseon 07-16-2022 Glucose [Mass/Vol] 402.0 mg/dL High 74.0-118.0 [facility] Comment on above: Performed By: #### 2 [id number] ####[facility] (DEFAULT)[address] [place] [address] 28604 Nutrition Noteon 07-16-2022 Nutrition Note Normal [facility] POCT Glucose Levelon 022 Glucose [Mass/Vol] 455 mg/dL Critically abnormal [address] [place] [address] Comment on above: Performed By: #### 4 [id number] ####[facility] (DEFAULT)[address] [place] [address] 58705 Glucose [Mass/Vol] 422 mg/dL Critically abnormal [address] [place] [address] Comment on above: Performed By: #### 4 [id number] ####[facility] (DEFAULT)[address] [place] [address] 58809 Glucose [Mass/Vol] 290 mg/dL High [address] [place] [address] Comment on above: Performed By: #### 4 [id number] ####[facility] (DEFAULT)[address] [place] [address] 97142 Glucose [Mass/Vol] 313 mg/dL High [address] [place] [address] Comment on above: Performed By: #### 4 [id number] ####[facility] (DEFAULT)[address] [place] [address] 18266 Glucose [Mass/Vol] 196 mg/dL High [address] Comment on above: Performed By: #### 4 [id number] ####[facility] (DEFAULT)[address] [place] [address] 48221 Provider Orderson 07-16-2022 Provider Orders [id number]#1.0 0OTGTIFF [facility] Telemetry Stripson Telemetry Strips [id number]#1.0 0OTGTIFF Normal [facility] .Auto Diff 1on 07-15-2022 Auto [place] % 6 % Normal - [facility] Comment on above: Performed By: #### 1 [id number], 1228716, 2556774, 47434970 ####[facility] (DEFAULT)[address] [place] [address] 61858 Baso Abs# 0.0 x10 Normal 0.0-0.2 [facility] Comment on above: Performed By: #### 1 [id number], 5271188, 0844621, 79336294 ####[facility] (DEFAULT)[address] [place] [address] Basophils/100 WBC (Bld) 0.2 % Normal 0.2-2.0 [facility] Comment on above: Performed By: #### 1 [id number], 1170664, 2613532, 56604970 ####[facility] (DEFAULT)[address] [place] [address] 58446 Eos Abs# 0.6 x10 High 0.0-0.4 [facility] Comment on above: Performed By: #### 1 [id number], 6419870, 4092698, 42035211 ####[facility] (DEFAULT)[address] [place] [address] 67601 Eosinophils/100 WBC (Bld) 6.5 % High 0.9-4.0 [facility] Comment on above: Performed By: #### 1 [id number], 6449839, 8288217, 46332385 ####[facility] (DEFAULT)[address] [place] [address] 61861 Lymph Abs# 3.5 x10 High 1.3-2.9 [facility] Comment on above: Performed By: #### 1 012493923, 1261166, 8094403, 86160399 ####[facility] (DEFAULT)[address] [place] [address] 95913 Lymphocytes/100 WBC (Bld) 39 % Normal 14-48 [facility] Comment on above: Performed By: #### 1 [id number], 2427739, 4536344, 12705354 ####[facility] (DEFAULT)[address] [place] [address] [place] Abs# 0.6 x10 Normal 0.0-0.8 [facility] Comment on above: Performed By: #### 1 [id number], 6199198, 4588785, 05081958 ####[facility] (DEFAULT)[address] [place] [address] Neut Abs# 4.2 x10 Normal 1.5-9.2 [facility] Comment on above: Performed By: #### 1 634281675, 7411401, 3827925, 70332586 ####[facility] (DEFAULT)[address] [place] [address] Neutrophils/100 WBC (Bld) 47 % Normal 44-88 [facility] Comment on above: Performed By: #### 1 [id number], 0833456, 4506165, 35087852 ####[facility] (DEFAULT)[address] [place] [address] CBC w/ Auto Diffon 2 Erythrocyte distribution width (RBC) [Ratio] 13.2 % Normal 11.5-15.0 [facility] Comment on above: Performed By: #### 1 240992975, 4082114, 1034427, 19038739 ####[facility] (DEFAULT)[address] [place] [address] Hematocrit (Bld) [Volume fraction] 35.0 % Normal 34.8-51.9 [facility] Comment on above: Performed By: #### 1 [id number], 5634974, 7587309, 85946335 ####[facility] (DEFAULT)[address] [place] [address] Hemoglobin (Bld) [Mass/Vol] 11.3 g/dL Low 11.8-17.7 [facility] Comment on above: Performed By: #### 1 906236595, 0418007, 4241267, 69113336 ####[facility] (DEFAULT)[address] [place], [place] [address] Instr WBC 8.9 x10 Invalid Interpretation Code [facility] Comment on above: Performed By: #### 1 [id number], 4092981, 0050774, 02389269 ####[facility] (DEFAULT)[address] [place] [address] Man Diff? Auto Normal [facility] Comment on above: Performed By: #### 1 147841905, 4678261, 2088825, 61961928 ####[facility] (DEFAULT)[address] [place] [address] 78206 MCH (RBC) [Entitic mass] 29 pg Normal 24-34 [facility] Comment on above: Performed By: #### 1 [id number], 9004676, 6931362, 92556207 ####[facility] (DEFAULT)[address] [place] [address] MCHC (RBC) [Mass/Vol] 32 g/dL Normal 26-37 [facility] Comment on above: Performed By: #### 1 [id number], 7447738, 3654671, 38289662 ####[facility] (DEFAULT)[address] [place] [address] 44693 MCV (RBC) [Entitic vol] 90 fL Normal 81-100 [facility] Comment on above: Performed By: #### 1 [id number], 7284791, 1798591, 28025633 ####[facility] (DEFAULT)[address] [place] [address] Platelet 228 x10 Normal 138-427 [facility] Comment on above: Performed By: #### 1 [id number], 1698713, 0284807, 18350542 ####[facility] (DEFAULT)[address] [place] [address] 49566 Platelet mean volume (Bld) [Entitic vol] 11.4 fL High 6.3-10.2 [facility] Comment on above: Performed By: #### 1 [id number], 2995451, 2814918, 01468769 ####[facility] (DEFAULT)[address] [place] [address] RBC 3.91 x10 Normal 3.70-5.30 [facility] Comment on above: Performed By: #### 1 [id number], 1023728, 7455427, 64373058 ####[facility] (DEFAULT)[address] [place] [address] WBC 8.9 x10 Normal 3.5-10.5 [facility] Comment on above: Performed By: #### 1 [id number], 4004617, 9491872, 57426894 ####[facility] (DEFAULT)[address] [place] [address] CMP Standardon 07-15-2022 eGFR Non AA 60 mL/min/1.73m2 Invalid Interpretation Code [facility] Comment on above: Performed By: #### 1 [id number], 8746408, 5099469, 34942398 ####[facility] (DEFAULT)[address] [place] [address] eGFR AA >60 Invalid Interpretation Code [facility] Comment on above: Result Comment: Publishing Director lokesh Kidney disease could be indicated at eGFRs of less than 60 ml/min/1.73m2. Kidney Failure is indicated at less than 15 ml/min/1.73m2 Performed By: #### 1 [id number] ####[facility] (DEFAULT)[address] [place] [address] Albumin [Mass/Vol] 3.4 g/dL Low 3.5-5.0 [facility] Comment on above: Performed By: #### 1 [id number], 1959005, 5428792, 18740181 ####[facility] (DEFAULT)[address] [place] [address] 44757 Albumin/Globulin [Mass ratio] 1.0 {ratio} Low 1.4-2.6 [facility] Comment on above: Performed By: #### 1 [id number], 8752875, 2929967, 45519553 ####[facility] (DEFAULT)[address] [place] [address] Alk Phos 57 IU/L Normal 32-91 [facility] Comment on above: Performed By: #### 1 [id number], 6495390, 6241832, 57865895 ####[facility] (DEFAULT)[address] [place] [address] 64045 ALT [Catalytic activity/Vol] 30.0 U/L Normal 17.0-63.0 [facility] Comment on above: Performed By: #### 1 [id number], 0965079, 6232742, 20058911 ####[facility] (DEFAULT)[address] [place] [address] 78515 Anion gap [Moles/Vol] 13.0 mmol/L Normal 5.0-19.0 [facility] Comment on above: Performed By: #### 1 [id number], 9006483, 3735200, 16865362 ####[facility] (DEFAULT)[address] [place] [address] 09970 AST [Catalytic activity/Vol] 19 U/L Normal 15-41 [facility] Comment on above: Performed By: #### 1 [id number], 2508068, 9486605, 86462708 ####[facility] (DEFAULT)[address] [place] [address] 54410 Bili Total 0.7 mg/dL Normal 0.3-1.2 [facility] Comment on above: Performed By: #### 1 130933530, 2074737, 3864701, 87905510 ####[facility] (DEFAULT)[address] [place] [address] 89247 Calcium [Mass/Vol] 9.3 mg/dL Normal 8.9-10.3 [facility] Comment on above: Performed By: #### 1 229390834, 8122230, 6300644, 59600956 ####[facility] (DEFAULT)[address] [place] [address] 03818 Chloride [Moles/Vol] 101 mmol/L Normal 101-111 [facility] Comment on above: Performed By: #### 1 [id number], 6466158, 4317317, 50091866 ####[facility] (DEFAULT)[address] [place] [address] 69355 CO2 [Moles/Vol] 24 mmol/L Normal 21-32 [facility] Comment on above: Performed By: #### 1 679106239, 0183154, 1022909, 95270560 ####[facility] (DEFAULT)[address] [place] [address] 38886 Creatinine [Mass/Vol] 1.20 mg/dL Normal 0.90-1.30 [facility] Comment on above: Performed By: #### 1 307903069, 2921240, 9246279, 43758197 ####[facility] (DEFAULT)[address] [place] [address] 63981 Globulin (S) [Mass/Vol] 3.4 g/dL Normal 1.5-4.3 [facility] Comment on above: Performed By: #### 1 884949408, 3346426, 1270298, 45629412 ####[facility] (DEFAULT)[address] [place] [address] 85385 Glucose [Mass/Vol] 184.0 mg/dL High 74.0-118.0 [facility] Comment on above: Performed By: #### 1 517802363, 0072184, 6531969, 90502933 ####[facility] (DEFAULT)[address] [place] [address] 42980 Osmolality 286 mOsm/L Invalid Interpretation Code [facility] Comment on above: Performed By: #### 1 [id number], 2260261, 3538109, 79647978 ####[facility] (DEFAULT)[address] [place] [address] 93910 Potassium [Moles/Vol] 4.1 mmol/L Normal 3.6-5.1 [facility] Comment on above: Performed By: #### 1 570926765, 7173029, 1362144, 88174255 ####[facility] (DEFAULT)[address] [place] [address] 76375 Protein [Mass/Vol] 6.8 g/dL Normal 6.5-8.1 [facility] Comment on above: Performed By: #### 1 871871802, 1566151, 3001684, 84725577 ####[facility] (DEFAULT)[address] [place] [address] 66845 Sodium [Moles/Vol] 134.0 mmol/L Low 136.0-144.0 [facility] Comment on above: Performed By: #### 1 381035147, 5659967, 5736745, 22887012 ####[facility] (DEFAULT)[address] [place] [address] 54369 Urea nitrogen [Mass/Vol] 50 mg/dL High 05-30 [facility] Comment on above: Performed By: #### 1 695558152, 7474281, 6766164, 81033290 ####[facility] (DEFAULT)[address] [place] [address] 76087 Urea nitrogen/Creatinine [Mass ratio] 42.0 mg/mg High 4.6-16.2 [facility] Comment on above: Performed By: #### 1 210249119, 0606111, 3552707, 87947546 ####[facility] (DEFAULT)[address] [place] [address] 22446 Magnesiumon 07-15-2022 Magnesium [Mass/Vol] 1.99 mg/dL Normal 1.80-2.50 [facility] Comment on above: Performed By: #### 1 765416551, 6333806, 8755557, 08784121 ####[facility] (DEFAULT)[address] [place] [address] 30097 POCT Glucose Levelon 022 Glucose [Mass/Vol] 305 mg/dL High [address] [place] [address] Comment on above: Performed By: #### 4 [id number] ####[facility] (DEFAULT)[address] [place] [address] 97174 Glucose [Mass/Vol] 267 mg/dL High [address] Comment on above: Performed By: #### 4 [id number] ####[facility] (DEFAULT)[address] [place] [address] 88253 Glucose [Mass/Vol] 223 mg/dL High [address] [place] [address] Comment on above: Performed By: #### 4 505635274 ####[facility] (DEFAULT)[address] [place] [address] 52663 Glucose [Mass/Vol] 188 mg/dL High [address] Comment on above: Performed By: #### 4 [id number] ####[facility] (DEFAULT)[address] [place] [address] Telemetry Stripson Telemetry Strips [id number]#1.00 OTGTIFF Normal [facility] XR Swallowing Functionon XR Swallowing Function Normal [facility] Comment on above: Order Comment: modif ied swallow study .Auto Diff 1on 07-14-2022 Auto [place] % 7 % Normal -12 [facility] Comment on above: Performed By: #### 7 509015, 78765135, 1614803, 3687166336 ####[facility] (DEFAULT)[address] [place] [address] Baso Abs# 0.0 x10 Normal 0.0-0.2 [facility] Comment on above: Performed By: #### 7 815242, 76982432, 7479779, 8264777896 ####[facility] (DEFAULT)[address] [place] [address] Basophils/100 WBC (Bld) 0.2 % Normal 0.2-2.0 [facility] Comment on above: Performed By: #### 7 520960, 77140664, 6987577, 6999869228 ####[facility] (DEFAULT)[address] [place] [address] Eos Abs# 0.5 x10 High 0.0-0.4 [facility] Comment on above: Performed By: #### 7 877700, 11323705, 2250605, 8346357061 ####[facility] (DEFAULT)[address] [place] [address] 94627 Eosinophils/100 WBC (Bld) 5.3 % High 0.9-4.0 [facility] Comment on above: Performed By: #### 7 039555, 34187353, 2087521, 8238532789 ####[facility] (DEFAULT)[address] [place] [address] Lymph Abs# 3.2 x10 High 1.3-2.9 [facility] Comment on above: Performed By: #### 7 069435, 23461724, 7731222, 3646550236 ####[facility] (DEFAULT)[address] [place] [address] Lymphocytes/100 WBC (Bld) 35 % Normal 14-48 [facility] Comment on above: Performed By: #### 7 712497, 62301937, 3888243, 7643413910 ####[facility] (DEFAULT)[address] [place] [address] [place] Abs# 0.6 x10 Normal 0.0-0.8 [facility] Comment on above: Performed By: #### 7 047798, 05560574, 0365181, 3504895842 ####[facility] (DEFAULT)[address] [place] [address] Neut Abs# 4.8 x10 Normal 1.5-9.2 [facility] Comment on above: Performed By: #### 7 569822, 40669136, 6178216, 0955089582 ####[facility] (DEFAULT)[address] [place] [address] Neutrophils/100 WBC (Bld) 53 % Normal 44-88 [facility] Comment on above: Performed By: #### 7 986460, 77322962, 6710898, 3221816020 ####[facility] (DEFAULT)[address] [place] [address] Ambulance Noteon 07-14-2022 Ambulance Note [id number]#1.00 OTGTIFF Normal [facility] CBC w/ Auto Diffon Erythrocyte distribution width (RBC) [Ratio] 13.1 % Normal 11.5-15.0 [facility] Comment on above: Performed By: #### 7 706713, 62710099, 9423562, 5024939050 ####[facility] (DEFAULT)[address] [place] [address] Hematocrit (Bld) [Volume fraction] 35.1 % Normal 34.8-51.9 [facility] Comment on above: Performed By: #### 7 095721, 38525902, 9471769, 6699834426 ####[facility] (DEFAULT)[address] [place] [address] Hemoglobin (Bld) [Mass/Vol] 11.4 g/dL Low 11.8-17.7 [facility] Comment on above: Performed By: #### 7 595946, 88733258, 2906867, 3738942891 ####[facility] (DEFAULT)[address] [place] [address] Instr WBC 9.2 x10 Invalid Interpretation Code [facility] Comment on above: Performed By: #### 7 688257, 76874097, 1060827, 6870495008 ####[facility] (DEFAULT)[address] [place] [address] Man Diff? Auto Normal [facility] Comment on above: Performed By: #### 7 871996, 44469877, 3392128, 5024761148 ####[facility] (DEFAULT)[address] [place] [address] MCH (RBC) [Entitic mass] 29 pg Normal 24-34 [facility] Comment on above: Performed By: #### 7 219977, 90538684, 7915839, 6897885823 ####[facility] (DEFAULT)[address] [place] [address] MCHC (RBC) [Mass/Vol] 32 g/dL Normal 26-37 [facility] Comment on above: Performed By: #### 7 071246, 51491755, 8701383, 5018860393 ####[facility] (DEFAULT)[address] [place] [address] 20957 MCV (RBC) [Entitic vol] 90 fL Normal 81-100 [facility] Comment on above: Performed By: #### 7 061924, 67544420, 7402898, 3662575537 ####[facility] (DEFAULT)[address] [place] [address] 84446 Platelet 233 x10 Normal 138-427 [facility] Comment on above: Performed By: #### 7 976121, 59145651, 4422804, 5373931440 ####[facility] (DEFAULT)[address] [place] [address] Platelet mean volume (Bld) [Entitic vol] 11.8 fL High 6.3-10.2 [facility] Comment on above: Performed By: #### 7 672399, 34223079, 3115099, 8362447420 ####[facility] (DEFAULT)[address] [place] [address] RBC 3.92 x10 Normal 3.70-5.30 [facility] Comment on above: Performed By: #### 7 902650, 31899454, 2124633, 8570150504 ####[facility] (DEFAULT)[address] [place] [address] WBC 9.2 x10 Normal 3.5-10.5 [facility] Comment on above: Performed By: #### 7 429012, 34968053, 3079476, 8977053684 ####[facility] (DEFAULT)[address] [place] [address] Standardon 07-14-2022 eGFR Non AA 56 mL/min/1.73m2 Invalid Interpretation Code [facility] Comment on above: Performed By: #### 7 631587, 36457284, 8783946, [id number] ####[facility] (DEFAULT)[address] [place] [address] eGFR AA >60 Invalid Interpretation Code [facility] Comment on above: Result Comment: Publishing Director lokesh Kidney disease could be indicated at eGFRs of less than 60 ml/min/1.73m2. Kidney Failure is indicated at less than 15 ml/min/1.73m2 Performed By: #### 7 587801, 55919987, 8850208, 2653246899 ####[facility] (DEFAULT)[address] [place] [address] Albumin [Mass/Vol] 3.4 g/dL Low 3.5-5.0 [facility] Comment on above: Performed By: #### 7 372042, 47167161, 7302010, 1723616054 ####[facility] (DEFAULT)[address] [place] [address] Albumin/Globulin [Mass ratio] 1.0 {ratio} Low 1.4-2.6 [facility] Comment on above: Performed By: #### 7 300671, 72434055, 7382250, 9062161246 ####[facility] (DEFAULT)[address] [place] [address] 71955 Alk Phos 60 IU/L Normal 32-91 [facility] Comment on above: Performed By: #### 7 213325, 45509144, 4361081, 3931157611 ####[facility] (DEFAULT)[address] [place] [address] 13843 ALT [Catalytic activity/Vol] 23.0 U/L Normal 17.0-63.0 [facility] Comment on above: Performed By: #### 7 045578, 50334326, 7033454, 8101867658 ####[facility] (DEFAULT)[address] [place] [address] 10993 Anion gap [Moles/Vol] 15.0 mmol/L Normal 5.0-19.0 [facility] Comment on above: Performed By: #### 7 057974, 42097961, 6225837, 8245639081 ####[facility] (DEFAULT)[address] [place] [address] 73108 AST [Catalytic activity/Vol] 17 U/L Normal 15-41 [facility] Comment on above: Performed By: #### 7 196634, 90102755, 2459086, 7387257807 ####[facility] (DEFAULT)[address] [place] [address] 26875 Bili Total 0.6 mg/dL Normal 0.3-1.2 [facility] Comment on above: Performed By: #### 7 469382, 93071037, 6854583, 4357104464 ####[facility] (DEFAULT)[address] [place] [address] 00601 Calcium [Mass/Vol] 9.1 mg/dL Normal 8.9-10.3 [facility] Comment on above: Performed By: #### 7 066027, 18774012, 4536893, 5283598529 ####[facility] (DEFAULT)[address] [place] [address] 12790 Chloride [Moles/Vol] 101 mmol/L Normal 101-111 [facility] Comment on above: Performed By: #### 7 605340, 87573458, 9303531, 4964092099 ####[facility] (DEFAULT)[address] [place] [address] CO2 [Moles/Vol] 23 mmol/L Normal 21-32 [facility] Comment on above: Performed By: #### 7 512848, 71310578, 4696538, 2543540473 ####[facility] (DEFAULT)[address] [place] [address] Creatinine [Mass/Vol] 1.28 mg/dL Normal 0.90-1.30 [facility] Comment on above: Performed By: #### 7 491815, 39435949, 5711445, 5801567393 ####[facility] (DEFAULT)[address] [place] [address] Globulin (S) [Mass/Vol] 3.5 g/dL Normal 1.5-4.3 [facility] Comment on above: Performed By: #### 7 622681, 18382250, 5220788, 8480568669 ####[facility] (DEFAULT)[address] [place] [address] Glucose [Mass/Vol] 183.0 mg/dL High 74.0-118.0 [facility] Comment on above: Performed By: #### 7 776402, 35672187, 6404885, 2177684085 ####[facility] (DEFAULT)[address] [place] [address] Osmolality 288 mOsm/L Invalid Interpretation Code [facility] Comment on above: Performed By: #### 7 980448, 48870160, 5753241, 3257544963 ####[facility] (DEFAULT)[address] [place] [address] 66688 Potassium [Moles/Vol] 4.1 mmol/L Normal 3.6-5.1 [facility] Comment on above: Performed By: #### 7 507579, 77982951, 0072556, 6523913754 ####[facility] (DEFAULT)[address] [place] [address] Protein [Mass/Vol] 6.9 g/dL Normal 6.5-8.1 [facility] Comment on above: Performed By: #### 7 415855, 92127066, 6598020, 6491037251 ####[facility] (DEFAULT)[address] [place] [address] Sodium [Moles/Vol] 135.0 mmol/L Low 136.0-144.0 [facility] Comment on above: Performed By: #### 7 994873, 77515780, 8494330, 5882273888 ####[facility] (DEFAULT)[address] [place] [address] Urea nitrogen [Mass/Vol] 50 mg/dL High 8-26 [facility] Comment on above: Performed By: #### 7 289216, 06946246, 1135515, 2802194674 ####[facility] (DEFAULT)[address] [place] [address] Urea nitrogen/Creatinine [Mass ratio] 39.0 mg/mg High 4.6-16.2 [facility] Comment on above: Performed By: #### 7 190073, 29010127, 4137922, 5806075269 ####[facility] (DEFAULT)[address] [place] [address] Consent Formson 07-14-2022 Consent Forms [id number]#1.0 0OTGTIFF Normal [facility] Magnesiumon 07-14-2022 Magnesium [Mass/Vol] 2.00 mg/dL Normal 1.80-2.50 [facility] Comment on above: Performed By: #### 7 793401, 10180721, 5902632, 1487181873 ####[facility] (DEFAULT)[address] [place] [address] 99802 Nutrition Noteon 07-14-2022 Nutrition Note Normal [facility] POCT Glucose Levelon 022 Glucose [Mass/Vol] 164 mg/dL High 74-118 [facility] Comment on above: Performed By: #### 4 [id number] ####[facility] (DEFAULT)[address] [place] [address] Glucose [Mass/Vol] 270 mg/dL High 74118 [facility] Comment on above: Performed By: #### 4 285204806 ####[facility] (DEFAULT)[address] [place] [address] 71511 Glucose [Mass/Vol] 242 mg/dL High 74118 [facility] Comment on above: Performed By: #### 4 515494320 ####[facility] (DEFAULT)[address] [place] [address] 02852 Glucose [Mass/Vol] 165 mg/dL High [address] [place] [address] Comment on above: Performed By: #### 4 856482648 ####[facility] (DEFAULT)[address] [place] [address] 78296 Rad - MRI Reporton 2 Rad - MRI Report [id number]#1.0 [facility] Telemetry Strips [id number]#1.00 [facility] Ech[facility]ogram Completeon 07-14-2022 US Echocardiogram Complete Normal [facility] .Auto Diff 1on 07-13-2022 Auto [place] % 8 % Normal -12 [facility] Comment on above: Performed By: #### 7 753126, 0313772, 4261029186, 6035383193, 75829438 ####[facility] (DEFAULT)[address] [place] [address] 61802 Baso Abs# 0.0 x10 Normal 0.0-0.2 [facility] Comment on above: Performed By: #### 7 381935, 8973680, 0781950386, 5526486512, 73187919 ####[facility] (DEFAULT)[address] [place] [address] 55684 Basophils/100 WBC (Bld) 0.4 % Normal 0.2-2.0 [facility] Comment on above: Performed By: #### 7 080173, 6962113, 9562663796, 4485268994, 24646054 ####[facility] (DEFAULT)[address] [place] [address] 22184 Eos Abs# 0.6 x10 High 0.0-0.4 [facility] Comment on above: Performed By: #### 7 547980, 9482565, 5493432712, 7257574590, 35280939 ####[facility] (DEFAULT)[address] [place] [address] 15572 Eosinophils/100 WBC (Bld) 5.4 % High 0.9-4.0 [facility] Comment on above: Performed By: #### 7 472814, 4729847, 1377680300, 7297933325, 51546867 ####[facility] (DEFAULT)[address] [place] [address] 50964 Lymph Abs# 2.6 x10 Normal 1.3-2.9 [facility] Comment on above: Performed By: #### 7 872333, 6117010, 0988430530, 3815267546, 39830282 ####[facility] (DEFAULT)[address] [place] [address] 07827 Lymphocytes/100 WBC (Bld) 24 % Normal 14-48 [facility] Comment on above: Performed By: #### 7 245912, 0082171, 0854409859, 6511494647, 65235107 ####[facility] (DEFAULT)[address] [place] [address] 35253 [place] Abs# 0.9 x10 High 0.0-0.8 [facility] Comment on above: Performed By: #### 7 684488, 7966657, 9038993986, 2613253485, 60963656 ####[facility] (DEFAULT)[address] [place] [address] 04387 Neut Abs# 6.7 x10 Normal 1.5-9.2 [facility] Comment on above: Performed By: #### 7 291948, 0234605, 3101336081, 8251710459, 74253846 ####[facility] (DEFAULT)[address] [place] [address] Neutrophils/100 WBC (Bld) 62 % Normal 44-88 [facility] Comment on above: Performed By: #### 7 620783, 9478507, 7427120125, 5467067140, 86902675 ####[facility] (DEFAULT)[address] [place] [address] BMP Standardon 07-13-2022 eGFR Non AA 60 mL/min/1.73m2 Invalid Interpretation Code [facility] Comment on above: Performed By: #### 7 061296, 6073780, 2846824623, 2350572165, 50856746 ####[facility] (DEFAULT)[address] [place] [address] eGFR AA >60 Invalid Interpretation Code [facility] Comment on above: Result Comment: Publishing Director lokesh Kidney disease could be indicated at eGFRs of less than 60 ml/min/1.73m2. Kidney Failure is indicated at less than 15 ml/min/1.73m2 Performed By: #### 7 128549, 0913774, 4659038182, 6578550025, 48414901 ####[facility] (DEFAULT)[address] [place] [address] 20721 Anion gap [Moles/Vol] 14.0 mmol/L Normal 5.0-19.0 [facility] Comment on above: Performed By: #### 7 590339, 0337257, 4591989672, 6066008254, 93631835 ####[facility] (DEFAULT)[address] [place] [address] 65468 Calcium [Mass/Vol] 9.3 mg/dL Normal 8.9-10.3 [facility] Comment on above: Performed By: #### 7 264423, 5585953, 7079169820, 2333568045, 45053184 ####[facility] (DEFAULT)[address] [place] [address] 90595 Chloride [Moles/Vol] 103 mmol/L Normal 101-111 [facility] Comment on above: Performed By: #### 7 492338, 1061200, 6687280977, 0292421206, 21881812 ####[facility] (DEFAULT)[address] [place] [address] CO2 [Moles/Vol] 24 mmol/L Normal 21-32 [facility] Comment on above: Performed By: #### 7 988602, 9596126, 0120465404, 2966055154, 41227714 ####[facility] (DEFAULT)[address] [place] [address] 98497 Creatinine [Mass/Vol] 1.21 mg/dL Normal 0.90-1.30 [facility] Comment on above: Performed By: #### 7 282134, 6370386, 4784824141, 3225986565, 06284860 ####[facility] (DEFAULT)[address] [place] [address] 90889 Glucose [Mass/Vol] 194.0 mg/dL High 74.0-118.0 [facility] Comment on above: Performed By: #### 7 190845, 3774705, 7615591931, 9060582517, 37663025 ####[facility] (DEFAULT)[address] [place] [address] 62983 Osmolality 289 mOsm/L Invalid Interpretation Code [facility] Comment on above: Performed By: #### 7 601735, 9147353, 9607848512, 8506051232, 74310080 ####[facility] (DEFAULT)[address] [place] [address] 74016 Potassium [Moles/Vol] 4.4 mmol/L Normal 3.6-5.1 [facility] Comment on above: Performed By: #### 7 247526, 8401310, 9790865754, 0681414974, 76205735 ####[facility] (DEFAULT)[address] [place] [address] 83741 Sodium [Moles/Vol] 137.0 mmol/L Normal 136.0-144.0 [facility] Comment on above: Performed By: #### 7 [id number], [id number], [id number], [id number], [id number] ####[facility] (DEFAULT)[address] [place] [address] 82640 Urea nitrogen [Mass/Vol] 41 mg/dL High 8-26 [facility] Comment on above: Performed By: #### 7 [id number], [id number], [id number], [id number], [id number] ####[facility] (DEFAULT)[address] [place] [address] Urea nitrogen/Creatinine [Mass ratio] 34.0 mg/mg High 4.6-16.2 [facility] Comment on above: Performed By: #### 7 [id number], [id number], [id number], [id number], [id number] ####[facility] (DEFAULT)[address] [place] [address] CBC w/ Auto Diffon 2 Erythrocyte distribution width (RBC) [Ratio] 13.2 % Normal 11.5-15.0 [facility] Comment on above: Performed By: #### 7 [id number], [id number], [id number], [id number], [id number] ####[facility] (DEFAULT)[address] [place] [address] Hematocrit (Bld) [Volume fraction] 36.7 % Normal 34.8-51.9 [facility] Comment on above: Performed By: #### 7 [id number], [id number], [id number], [id number], [id number] ####[facility] (DEFAULT)[address] [place] [address] Hemoglobin (Bld) [Mass/Vol] 12.0 g/dL Normal 11.8-17.7 [facility] Comment on above: Performed By: #### 7 702274, 7154901, 7096507391, 1114097102, 48065923 ####[facility] (DEFAULT)[address] [place] [address] Instr WBC 10.8 x10 Invalid Interpretation Code [facility] Comment on above: Performed By: #### 7 172302, 8051360, 5138229937, 4243650240, 02663603 ####[facility] (DEFAULT)[address] [place] [place] [address] Man Diff? Auto Normal [facility] Comment on above: Performed By: #### 7 939872, 8262803, 5589597720, 2986819045, 16818948 ####[facility] (DEFAULT)[address] [place] [address] 93971 MCH (RBC) [Entitic mass] 29 pg Normal 24-34 [facility] Comment on above: Performed By: #### 7 283579, 6938175, 6585229711, 6695670893, 12052414 ####[facility] (DEFAULT)[address] [address] MCHC (RBC) [Mass/Vol] 33 g/dL Normal 26-37 [facility] Comment on above: Performed By: #### 7 346172, 5963187, 3734089065, 9510557206, 56113005 ####[facility] (DEFAULT)[address] [place] [address] MCV (RBC) [Entitic vol] 90 fL Normal 81-100 [facility] Comment on above: Performed By: #### 7 357679, 5975334, 0759127762, 2146312132, 77179970 ####[facility] (DEFAULT)[address] [address] Platelet 258 x10 Normal 138-427 [facility] Comment on above: Performed By: #### 7 998563, 8147912, 2089947683, 6245242635, 87850161 ####[facility] (DEFAULT)[address] [place] [address] Platelet mean volume (Bld) [Entitic vol] 12.0 fL High 6.3-10.2 [facility] Comment on above: Performed By: #### 7 603312, 3270141, 2710076865, 6903921471, 18443641 ####[facility] (DEFAULT)[address] [place] [address] RBC 4.09 x10 Normal 3.70-5.30 [facility] Comment on above: Performed By: #### 7 941950, 1720736, 5397973760, 2733937487, 89203640 ####[facility] (DEFAULT)[address] [place] [address] WBC 10.8 x10 High 3.5-10.5 [facility] Comment on above: Performed By: #### 7 182713, 5459919, 7043877143, 7017374831, 03782075 ####[facility] (DEFAULT)[address] [place] [address] 99342 CMP Standardon 07-13-2022 Albumin [Mass/Vol] 3.5 g/dL Normal 3.5-5.0 [facility] Comment on above: Performed By: #### 7 641464, 3669655, 0654539620, 5917498056, 24747408 ####[facility] (DEFAULT)[address] [place] [address] Albumin/Globulin [Mass ratio] 1.0 {ratio} Low 1.4-2.6 [facility] Comment on above: Performed By: #### 7 559408, 0239802, 3311549453, 0763433211, 88348698 ####[facility] (DEFAULT)[address] [place] [address] 98073 Alk Phos 61 IU/L Normal 32-91 [facility] Comment on above: Performed By: #### 7 096783, 2683489, 7352305638, 8035274339, 44567372 ####[facility] (DEFAULT)[address] [place] [address] 25617 ALT [Catalytic activity/Vol] 20.0 U/L Normal 17.0-63.0 [facility] Comment on above: Performed By: #### 7 180844, 2553766, 5651726789, 4314469499, 56336328 ####[facility] (DEFAULT)[address] [place] [address] 49793 AST [Catalytic activity/Vol] 18 U/L Normal 15-41 [facility] Comment on above: Performed By: #### 7 333979, 6841151, 0754974818, 2805053526, 35155629 ####[facility] (DEFAULT)[address] [place] [address] Bili Total 0.7 mg/dL Normal 0.3-1.2 [facility] Comment on above: Performed By: #### 7 928725, 0877033, 0243984863, 0199885117, 14657074 ####[facility] (DEFAULT)[address] [place] [address] 54569 Globulin (S) [Mass/Vol] 3.5 g/dL Normal 1.5-4.3 [facility] Comment on above: Performed By: #### 7 598316, 5841693, 7787101590, 4331171990, 84916138 ####[facility] (DEFAULT)[address] [place] [address] 50214 Protein [Mass/Vol] 7.0 g/dL Normal 6.5-8.1 [facility] Comment on above: Performed By: #### 7 825798, 6905751, 3046328551, 4251416352, 65034634 ####[facility] (DEFAULT)[address] [place] [address] Upper Extremity w/o Contr ast Lefton 07-13-2022 CT Upper Extremity w/o Contrast Left Normal [facility] Magnesiumon 07-13-2022 Magnesium [Mass/Vol] 1.90 mg/dL Normal 1.80-2.50 [facility] Comment on above: Performed By: #### 7 746672, 6452761, 0213133839, 1713995231, 82940137 ####[facility] (DEFAULT)[address] [place] [address] 84647 POCT Glucose Levelon 022 Glucose [Mass/Vol] 175 mg/dL High [address] [place] [address] Comment on above: Performed By: #### 4 [id number] ####[facility] (DEFAULT)[address] [place] [address] 36673 Glucose [Mass/Vol] 271 mg/dL High [address] [place] [address] Comment on above: Performed By: #### 4 155702061 ####[facility] (DEFAULT)[address] [place] [address] 19481 Glucose [Mass/Vol] 179 mg/dL High [address] [place] [address] Comment on above: Performed By: #### 4 [id number] ####[facility] (DEFAULT)[address] [place] [address] 77215 Progress Note - Nurseon Progress Note - Nurse Normal [facility] Standardon 07-12-2022 eGFR Non AA >60 Invalid Interpretation Code [facility] Comment on above: Performed By: #### 1 [id number], [id number] ####[facility] (DEFAULT)[address] [place] [address] 37934 eGFR AA >60 Invalid Interpretation Code [facility] Comment on above: Result Comment: Publishing Director lokesh Kidney disease could be indicated at eGFRs of less than 60 ml/min/1.73m2. Kidney Failure is indicated at less than 15 ml/min/1.73m2 Performed By: #### 1 [id number], [id number] ####[facility] (DEFAULT)[address] [place] [address] 31390 Anion gap [Moles/Vol] 13.0 mmol/L Normal 5.0-19.0 [facility] Comment on above: Performed By: #### 1 406911729, 1622211113 ####[facility] (DEFAULT)[address] [place] [address] 98151 Calcium [Mass/Vol] 9.2 mg/dL Normal 8.9-10.3 [facility] Comment on above: Performed By: #### 1 811515887, 1703903536 ####[facility] (DEFAULT)[address] [place] [address] 44342 Chloride [Moles/Vol] 103 mmol/L Normal 101-111 [facility] Comment on above: Performed By: #### 1 739329355, 1378002301 ####[facility] (DEFAULT)[address] [place] [address] 05888 CO2 [Moles/Vol] 24 mmol/L Normal 21-32 [facility] Comment on above: Performed By: #### 1 046655718, 5542016175 ####[facility] (DEFAULT)[address] [place] [address] 11850 Creatinine [Mass/Vol] 1.17 mg/dL Normal 0.90-1.30 [facility] Comment on above: Performed By: #### 1 442274000, 2548017883 ####[facility] (DEFAULT)[address] [place] [address] 26750 Glucose [Mass/Vol] 181.0 mg/dL High 74.0-118.0 [facility] Comment on above: Performed By: #### 1 418525186, 9157532100 ####[facility] (DEFAULT)[address] [place] [address] 10149 Osmolality 287 mOsm/L Invalid Interpretation Code [facility] Comment on above: Performed By: #### 1 [id number], 3776284191 ####[facility] (DEFAULT)[address] [place] [address] 97792 Potassium [Moles/Vol] 4.8 mmol/L Normal 3.6-5.1 [facility] Comment on above: Performed By: #### 1 837091960, 2270198432 ####[facility] (DEFAULT)[address] [place] [address] 43817 Sodium [Moles/Vol] 135.0 mmol/L Low 136.0-144.0 [facility] Comment on above: Performed By: #### 1 623312795, 2365044807 ####[facility] (DEFAULT)[address] [place] [address] 05806 Urea nitrogen [Mass/Vol] 47 mg/dL High 8-26 [facility] Comment on above: Performed By: #### 1 589472527, 8754881991 ####[facility] (DEFAULT)[address] [place] [address] 28728 Urea nitrogen/Creatinine [Mass ratio] 40.0 mg/mg High 4.6-16.2 [facility] Comment on above: Performed By: #### 1 [id number], 0157255073 ####[facility] (DEFAULT)[address] [place] [address] Angiography Head/Neck w/ Contraston 07-12-2022 CT Angiography Head/Neck w/ Contrast Normal [facility] Extra Sony 07-12-2022 Tube Collected Yes Invalid Interpretation Code [facility] Comment on above: Performed By: #### 1 [id number], [id number] ####[facility] (DEFAULT)[address] [place] [address] 76429 POCT Glucose Levelon 022 Glucose [Mass/Vol] 290 mg/dL High [address] [place] [address] Comment on above: Performed By: #### 4 [id number] ####[facility] (DEFAULT)[address] [place] [address] 25025 Glucose [Mass/Vol] 243 mg/dL High [address] [place] [address] Comment on above: Performed By: #### 4 [id number] ####[facility] (DEFAULT)[address] [place] [address] 76364 Glucose [Mass/Vol] 148 mg/dL High [address] [place] [address] Comment on above: Performed By: #### 4 669258777 ####[facility] (DEFAULT)[address] [place] [address] 60282 Glucose [Mass/Vol] 163 mg/dL High [address] [place] [address] Comment on above: Performed By: #### 4 [id number] ####[facility] (DEFAULT)[address] [place] [address] 65570 Progress Note - Nurseon 10-0 Progress Note - Nurse Normal [facility] .Auto Diff 1on 07-11-2022 Auto [place] % 8 % Normal -12 [facility] Comment on above: Performed By: #### 7 869805, 42296843, 2646169759, 3604913, 2929890562, 0449708473 ####[facility] (DEFAULT)[address] [place] [address] 67233 Baso Abs# 0.0 x10 Normal 0.0-0.2 [facility] Comment on above: Performed By: #### 7 401537, 78204447, 3782108262, 7533146, 9978239178, 7569210464 ####[facility] (DEFAULT)[address] [place] [address] 43352 Basophils/100 WBC (Bld) 0.2 % Normal 0.2-2.0 [facility] Comment on above: Performed By: #### 7 135944, 65536378, 2015168629, 0168530, , ####[facility] (DEFAULT)[address] [place] [address] Eos Abs# 0.4 x10 Normal 0.0-0.4 [facility] Comment on above: Performed By: #### 7 487779, 76709504, 3898741004, 3528611, , ####[facility] (DEFAULT)[address] [place] [address] 56904 Eosinophils/100 WBC (Bld) 4.7 % High 0.9-4.0 [facility] Comment on above: Performed By: #### 7 533520, 92437755, 4681843126, 0460847, , ####[facility] (DEFAULT)[address] [place] [address] 59472 Lymph Abs# 2.5 x10 Normal 1.3-2.9 [facility] Comment on above: Performed By: #### 7 087445, 88145014, 5809645537, 1999705, , ####[facility] (DEFAULT)[address] [place] [address] 47291 Lymphocytes/100 WBC (Bld) 30 % Normal 14-48 [facility] Comment on above: Performed By: #### 7 858450, 61660882, 3302253464, 3462448, , ####[facility] (DEFAULT)[address] [place] [address] 15111 [place] Abs# 0.7 x10 Normal 0.0-0.8 [facility] Comment on above: Performed By: #### 7 772738, 94313781, 7938253331, 7675050, , ####[facility] (DEFAULT)[address] [place] [address] 38524 Neut Abs# 4.7 x10 Normal 1.5-9.2 [facility] Comment on above: Performed By: #### 7 094034, 83079367, 3581230483, 9177358, 3783835903, 6590834669 ####[facility] (DEFAULT)[address] [place] [address] Neutrophils/100 WBC (Bld) 57 % Normal 44-88 [facility] Comment on above: Performed By: #### 7 464128, 66538585, 1692536248, 8420251, 3604858023, 8543508867 ####[facility] (DEFAULT)[address] [place] [address] Auto [place] % 7 % Normal 1-12 [facility] Comment on above: Performed By: #### 1 7120314, 8231987, 1346581, 4542247129 ####[facility] (DEFAULT)[address] [place] [address] Baso Abs# 0.0 x10 Normal 0.0-0.2 [facility] Comment on above: Performed By: #### 1 3858332, 1975032, 7088318, 5840542974 ####[facility] (DEFAULT)[address] [place] [address] Basophils/100 WBC (Bld) 0.2 % Normal 0.2-2.0 [facility] Comment on above: Performed By: #### 1 8729014, 4447191, 5495347, 3343977905 ####[facility] (DEFAULT)[address] [place] [address] 90988 Eos Abs# 0.4 x10 Normal 0.0-0.4 [facility] Comment on above: Performed By: #### 1 3823766, 0103646, 9997556, 8835558410 ####[facility] (DEFAULT)[address] [place] [address] Eosinophils/100 WBC (Bld) 4.2 % High 0.9-4.0 [facility] Comment on above: Performed By: #### 1 2793435, 0650578, 9094124, 4022175367 ####[facility] (DEFAULT)[address] [place] [address] 42034 Lymph Abs# 2.5 x10 Normal 1.3-2.9 [facility] Comment on above: Performed By: #### 1 0023924, 0587652, 3472383, 8595165424 ####[facility] (DEFAULT)[address] [place] [address] 17901 Lymphocytes/100 WBC (Bld) 30 % Normal 14-48 [facility] Comment on above: Performed By: #### 1 6633324, 2980772, 3292109, 8644869608 ####[facility] (DEFAULT)[address] [place] [address] [place] Abs# 0.6 x10 Normal 0.0-0.8 [facility] Comment on above: Performed By: #### 1 3561001, 6557451, 9229994, 1178323573 ####[facility] (DEFAULT)[address] [place] [address] Neut Abs# 5.0 x10 Normal 1.5-9.2 [facility] Comment on above: Performed By: #### 1 0623430, 4319601, 0910335, 4481837037 ####[facility] (DEFAULT)[address] [place] [address] 31359 Neutrophils/100 WBC (Bld) 59 % Normal 44-88 [facility] Comment on above: Performed By: #### 1 5499970, 2923607, 9368496, 6219191006 ####[facility] (DEFAULT)[address] [place] [address] 77430 BMP Standardon 07-11-2022 eGFR Non AA 58 mL/min/1.73m2 Invalid Interpretation Code [facility] Comment on above: Performed By: #### 7 917445, 12463955, 9315584049, 5748737, 1732557621, 2855806180 ####[facility] (DEFAULT)[address] [place] [address] eGFR AA >60 Invalid Interpretation Code [facility] Comment on above: Result Comment: Publishing Director lokesh Kidney disease could be indicated at eGFRs of less than 60 ml/min/1.73m2. Kidney Failure is indicated at less than 15 ml/min/1.73m2 Performed By: #### 7 828459, 02168134, 9519159926, 3561398, , 8569365909 ####[facility] (DEFAULT)[address] [place] [address] 02508 Anion gap [Moles/Vol] 16.0 mmol/L Normal 5.0-19.0 [facility] Comment on above: Performed By: #### 7 230709, 38335839, 8535142605, 5793651, , ####[facility] (DEFAULT)[address] [place] [address] 89821 Calcium [Mass/Vol] 9.5 mg/dL Normal 8.9-10.3 [facility] Comment on above: Performed By: #### 7 123633, 84136251, 2715694322, 7975447, , ####[facility] (DEFAULT)[address] [place] [address] 81129 Chloride [Moles/Vol] 105 mmol/L Normal 101-111 [facility] Comment on above: Performed By: #### 7 870412, 42663034, 0795763005, 6969023, , ####[facility] (DEFAULT)[address] [place] [address] 83601 CO2 [Moles/Vol] 24 mmol/L Normal 21-32 [facility] Comment on above: Performed By: #### 7 167879, 21558266, 9828148782, 2093485, , ####[facility] (DEFAULT)[address] [place] [address] 03930 Creatinine [Mass/Vol] 1.24 mg/dL Normal 0.90-1.30 [facility] Comment on above: Performed By: #### 7 331453, 17201160, 4697480221, 5327194, , ####[facility] (DEFAULT)[address] [place] [address] 76955 Glucose [Mass/Vol] 187.0 mg/dL High 74.0-118.0 [facility] Comment on above: Performed By: #### 7 908240, 96735425, 3853854315, 1218566, 9552810809, ####[facility] (DEFAULT)[address] [place] [address] 65295 Osmolality 298 mOsm/L Invalid Interpretation Code [facility] Comment on above: Performed By: #### 7 533699, 39889674, 3513849060, 7789361, , ####[facility] (DEFAULT)[address] [place] [address] 47830 Potassium [Moles/Vol] 5.5 mmol/L High 3.6-5.1 [facility] Comment on above: Performed By: #### 7 350937, 46287082, 7044583106, 5980449, , ####[facility] (DEFAULT)[address] [place] [address] 12887 Sodium [Moles/Vol] 139.0 mmol/L Normal 136.0-144.0 [facility] Comment on above: Performed By: #### 7 224863, 56304538, 1993765080, 0750639, 9032482077, ####[facility] (DEFAULT)[address] [place] [address] 03655 Urea nitrogen [Mass/Vol] 55 mg/dL High 8-26 [facility] Comment on above: Performed By: #### 7 045283, 44049020, 2791906413, 1133976, 5504740666, ####[facility] (DEFAULT)[address] [place] [address] 49145 Urea nitrogen/Creatinine [Mass ratio] 44.0 mg/mg High 4.6-16.2 [facility] Comment on above: Performed By: #### 7 212353, 18538023, 7159264722, 2400641, , ####[facility] (DEFAULT)[address] [place] [address] 95410 eGFR Non AA 57 mL/min/1.73m2 Invalid Interpretation Code [facility] Comment on above: Performed By: #### 1 5140348, 7278390, 3424410, 9991314731 ####[facility] (DEFAULT)[address] [place] [address] 07480 eGFR AA >60 Invalid Interpretation Code [facility] Comment on above: Result Comment: Publishing Director lokesh Kidney disease could be indicated at eGFRs of less than 60 ml/min/1.73m2. Kidney Failure is indicated at less than 15 ml/min/1.73m2 Performed By: #### 1 5139229, 2089572, 1920940, 1802644484 ####[facility] (DEFAULT)[address] [place] [address] 74599 Anion gap [Moles/Vol] 15.0 mmol/L Normal 5.0-19.0 [facility] Comment on above: Performed By: #### 1 3985146, 6621878, 1253439, 6706082046 ####[facility] (DEFAULT)[address] [place] [address] 83750 Calcium [Mass/Vol] 9.6 mg/dL Normal 8.9-10.3 [facility] Comment on above: Performed By: #### 1 7697778, 3207460, 0848833, 3140808435 ####[facility] (DEFAULT)[address] [place] [address] 68455 Chloride [Moles/Vol] 106 mmol/L Normal 101-111 [facility] Comment on above: Performed By: #### 1 3437680, 5603324, 1193115, 4754571034 ####[facility] (DEFAULT)[address] [place] [address] 90324 CO2 [Moles/Vol] 22 mmol/L Normal 21-32 [facility] Comment on above: Performed By: #### 1 8495769, 9471103, 4823446, 3900534655 ####[facility] (DEFAULT)[address] [place] [address] 70575 Creatinine [Mass/Vol] 1.25 mg/dL Normal 0.90-1.30 [facility] Comment on above: Performed By: #### 1 5924755, 7932968, 4583906, 3521281057 ####[facility] (DEFAULT)[address] [place] [address] 82027 Glucose [Mass/Vol] 178.0 mg/dL High 74.0-118.0 [facility] Comment on above: Performed By: #### 1 1439236, 7514737, 1823529, 2841476507 ####[facility] (DEFAULT)[address] [place] [address] 57244 Osmolality 296 mOsm/L Invalid Interpretation Code [facility] Comment on above: Performed By: #### 1 8788472, 9351340, 9100327, 5484671492 ####[facility] (DEFAULT)[address] [place] [address] 83522 Potassium [Moles/Vol] 5.2 mmol/L High 3.6-5.1 [facility] Comment on above: Performed By: #### 1 9696718, 8004629, 0278281, 1245070635 ####[facility] (DEFAULT)[address] [place] [address] 60244 Sodium [Moles/Vol] 138.0 mmol/L Normal 136.0-144.0 [facility] Comment on above: Performed By: #### 1 3609266, 8691342, 1931369, 5955144354 ####[facility] (DEFAULT)[address] [place] [address] 00641 Urea nitrogen [Mass/Vol] 56 mg/dL High 8-26 [facility] Comment on above: Performed By: #### 1 6318377, 0129518, 6942884, 2061813425 ####[facility] (DEFAULT)[address] [place] [address] 09216 Urea nitrogen/Creatinine [Mass ratio] 45.0 mg/mg High 4.6-16.2 [facility] Comment on above: Performed By: #### 1 2532232, 2853963, 1773252, 4578171278 ####[facility] (DEFAULT)[address] [place] [address] 45409 C Urineon 07-11-2022 C Urine Normal [facility] Comment on above: Performed By: #### 5 4627881, 4803815, 0418238649 ####[facility] (DEFAULT)[address] [place] [address] 63093 CBC w/ Auto Diffon Erythrocyte distribution width (RBC) [Ratio] 13.5 % Normal 11.5-15.0 [facility] Comment on above: Performed By: #### 7 273257, 57408475, 1561997796, 3264122, 8136886317, 2779589256 ####[facility] (DEFAULT)[address] [place] [address] Hematocrit (Bld) [Volume fraction] 38.4 % Normal 34.8-51.9 [facility] Comment on above: Performed By: #### 7 599766, 92404049, 8676331124, 9933366, 1357706432, 1162160178 ####[facility] (DEFAULT)[address] [place] [address] Hemoglobin (Bld) [Mass/Vol] 12.4 g/dL Normal 11.8-17.7 [facility] Comment on above: Performed By: #### 7 667273, 02170792, 2777020094, 9373195, 5047186826, 8270319402 ####[facility] (DEFAULT)[address] [place] [address] 97261 Instr WBC 8.3 x10 Invalid Interpretation Code [facility] Comment on above: Performed By: #### 7 695580, 44077610, 3967287134, 9455933, 3852331729, 6458607873 ####[facility] (DEFAULT)[address] [place] [address] 09758 Man Diff? Auto Normal [facility] Comment on above: Performed By: #### 7 096114, 63916870, 3885170013, 4556537, 7870945296, 9695679223 ####[facility] (DEFAULT)[address] [place] [address] 33636 MCH (RBC) [Entitic mass] 29 pg Normal 24-34 [facility] Comment on above: Performed By: #### 7 751350, 14212173, 5975147533, 5081624, , ####[facility] (DEFAULT)[address] [place] [address] 16889 MCHC (RBC) [Mass/Vol] 32 g/dL Normal 26-37 [facility] Comment on above: Performed By: #### 7 658098, 66093527, 6491065814, 4119610, , ####[facility] (DEFAULT)[address] [place] [address] 11293 MCV (RBC) [Entitic vol] 90 fL Normal 81-100 [facility] Comment on above: Performed By: #### 7 [id number], [id number], [id number], [id number], , ####[facility] (DEFAULT)[address] [place] [address] 18201 Platelet 247 x10 Normal 138-427 [facility] Comment on above: Performed By: #### 7 [id number], [id number], [id number], [id number], , ####[facility] (DEFAULT)[address] [place] [address] 24036 Platelet mean volume (Bld) [Entitic vol] 11.6 fL High 6.3-10.2 [facility] Comment on above: Performed By: #### 7 [id number], [id number], [id number], [id number], , ####[facility] (DEFAULT)[address] [place] [address] 55127 RBC 4.25 x10 Normal 3.70-5.30 [facility] Comment on above: Performed By: #### 7 [id number], [id number], [id number], [id number], , ####[facility] (DEFAULT)[address] [place] [address] 78989 WBC 8.3 x10 Normal 3.5-10.5 [facility] Comment on above: Performed By: #### 7 537702, 66406311, [id number], 0784235, 0871998567, 1019732448 ####[facility] (DEFAULT)[address] [place] [address] Erythrocyte distribution width (RBC) [Ratio] 13.5 % Normal 11.5-15.0 [facility] Comment on above: Performed By: #### 1 3587131, 0081843, 8276698, [id number] ####[facility] (DEFAULT)[address] [place] [address] Hematocrit (Bld) [Volume fraction] 36.4 % Normal 34.8-51.9 [facility] Comment on above: Performed By: #### 1 7261772, 8475085, 1562272, 5586264208 ####[facility] (DEFAULT)[address] [place] [address] Hemoglobin (Bld) [Mass/Vol] 11.8 g/dL Normal 11.8-17.7 [facility] Comment on above: Performed By: #### 1 3055032, 9662366, 9786314, 8039685718 ####[facility] (DEFAULT)[address] [place] [address] Instr WBC 8.5 x10 Invalid Interpretation Code [facility] Comment on above: Performed By: #### 1 0596371, 3020986, 8567678, [id number] ####[facility] (DEFAULT)[address] [place] [address] Man Diff? Auto Normal [facility] Comment on above: Performed By: #### 1 3903060, 8348272, 6027520, [id number] ####[facility] (DEFAULT)[address] [place] [address] 39152 MCH (RBC) [Entitic mass] 29 pg Normal 24-34 [facility] Comment on above: Performed By: #### 1 2683271, 5450564, 4539911, 3386286626 ####[facility] (DEFAULT)[address] [place] [address] 43380 MCHC (RBC) [Mass/Vol] 32 g/dL Normal 26-37 [facility] Comment on above: Performed By: #### 1 5833730, 5036249, 8706286, 3882995877 ####[facility] (DEFAULT)[address] [place] [address] 57096 MCV (RBC) [Entitic vol] 90 fL Normal 81-100 [facility] Comment on above: Performed By: #### 1 0546180, 6338148, 6185047, 4187378547 ####[facility] (DEFAULT)[address] [place] [address] 96953 Platelet 243 x10 Normal 138-427 [facility] Comment on above: Performed By: #### 1 4675243, 9244246, 0086164, 9306564287 ####[facility] (DEFAULT)[address] [place] [address] 64526 Platelet mean volume (Bld) [Entitic vol] 11.7 fL High 6.3-10.2 [facility] Comment on above: Performed By: #### 1 1174584, 0623884, 4043300, 8908968126 ####[facility] (DEFAULT)[address] [place] [address] RBC 4.04 x10 Normal 3.70-5.30 [facility] Comment on above: Performed By: #### 1 4916548, 6117697, 3832129, 9874271333 ####[facility] (DEFAULT)[address] [place] [address] 67719 WBC 8.5 x10 Normal 3.5-10.5 [facility] Comment on above: Performed By: #### 1 7756180, 8950330, 2763758, 8914083491 ####[facility] (DEFAULT)[address] [place] [address] CRPon 07-11-2022 CRP 0.5 mg/dL Normal <=0.5 [facility] Comment on above: Performed By: #### 1 5007193, 3164424, 0167502, 1990176642 ####[facility] (DEFAULT)[address] [place] [address] Extra Blueon 07-11-2022 Tube Collected Yes Invalid Interpretation Code [facility] Comment on above: Performed By: #### 7 374082, 39374955, 9155123820, 4063536, 2422281645, 5218470360 ####[facility] (DEFAULT)[address] [place] [address] 98554 Lactic Acidon 07-11-2022 Lactic Acid 13.0 mg/dL Normal 4.5-19.8 [facility] Comment on above: Performed By: #### 2 699425 ####[facility] (DEFAULT)[address] [place] [address] 66190 MRI Brain w/o Contraston MRI Brain w/o Contrast Normal [facility] Magnesiumon 07-11-2022 Magnesium [Mass/Vol] 2.16 mg/dL Normal 1.80-2.50 [facility] Comment on above: Performed By: #### 7 748803, 95583641, 4493047312, 1341795, 5982826216, 9931116962 ####[facility] (DEFAULT)[address] [place] [address] 48850 Nutrition Noteon 07-11-2022 Nutrition Note Normal [facility] POCT Glucose Levelon 022 Glucose [Mass/Vol] 210 mg/dL High [address] [place] [address] Comment on above: Performed By: #### 4 [id number] ####[facility] (DEFAULT)[address] [place] [address] 08358 Glucose [Mass/Vol] 198 mg/dL High [address] Comment on above: Performed By: #### 4 [id number] ####[facility] (DEFAULT)[address] [place] [address] 19421 Glucose [Mass/Vol] 154 mg/dL High [address] [place] [address] Comment on above: Performed By: #### 4 [id number] ####[facility] (DEFAULT)[address] [place] [address] 45533 Glucose [Mass/Vol] 164 mg/dL High [address] [place] [address] Comment on above: Performed By: #### 4 [id number] ####[facility] (DEFAULT)[address] [place] [address] 08286 Glucose [Mass/Vol] 162 mg/dL High 74118 [facility] Comment on above: Performed By: #### 4 [id number] ####[facility] (DEFAULT)[address] [place] [address] 46776 Glucose [Mass/Vol] 188 mg/dL High 74-118 [facility] Comment on above: Performed By: #### 4 [id number] ####[facility] (DEFAULT)[address] [place] [address] 04883 Progress Note - Nurseon Progress Note - Nurse [facility] Rad - MRI Reporton 2 Rad - MRI Report [id number].. 00 [id number]#1.0 0OTGTIFF [facility] Telemetry Stripson 2 Telemetry Strips [id number]. 00 [id number]#1.0 0OTGTIFF Normal [facility] Venous pHon 07-11-2022 pH Qasim 7.36 Low 7.37-7.44 [facility] Comment on above: Result Comment: Dr. Orozco wanted a venous blood gas and wanted to see the CO2. Venous PCO2 47 mmHgDrDenae Orozco visually saw the venous blood gas print out Performed By: #### 1 [id number] ####[facility] (DEFAULT)[address] [place] [address] 49559 XR Chest 1 View Frontalon XR Chest 1 View Frontal [facility] .Auto Diff 1on 07-10-2022 Auto [place] % 7 % Normal -12 [facility] Comment on above: Performed By: #### 1 3883459, 1532326, 2083631, 3618670319 ####[facility] (DEFAULT)[address] [place] [address] 24808 Baso Abs# 0.0 x10 Normal 0.0-0.2 [facility] Comment on above: Performed By: #### 1 9752041, 3519687, 7385889, 5028775966 ####[facility] (DEFAULT)[address] [place] [address] 58687 Basophils/100 WBC (Bld) 0.4 % Normal 0.2-2.0 [facility] Comment on above: Performed By: #### 1 1422668, 9931975, 3820043, 9979393001 ####[facility] (DEFAULT)[address] [place] [address] 86369 Eos Abs# 0.5 x10 High 0.0-0.4 [facility] Comment on above: Performed By: #### 1 2138070, 6924679, 5675005, 7289212796 ####[facility] (DEFAULT)[address] [place] [address] 27439 Eosinophils/100 WBC (Bld) 6.2 % High 0.9-4.0 [facility] Comment on above: Performed By: #### 1 3992698, 6789892, 5323518, 2040627189 ####[facility] (DEFAULT)[address] [place] [address] 63242 Lymph Abs# 2.7 x10 Normal 1.3-2.9 [facility] Comment on above: Performed By: #### 1 7770646, 5033836, 7154782, 9921314755 ####[facility] (DEFAULT)[address] [place] [address] 19875 Lymphocytes/100 WBC (Bld) 33 % Normal 14-48 [facility] Comment on above: Performed By: #### 1 6345857, 8427951, 3830999, 2443833336 ####[facility] (DEFAULT)[address] [place] [address] 90909 [place] Abs# 0.6 x10 Normal 0.0-0.8 [facility] Comment on above: Performed By: #### 1 7104215, 6227321, 0968937, 9051816669 ####[facility] (DEFAULT)[address] [place] [address] 13638 Neut Abs# 4.3 x10 Normal 1.5-9.2 [facility] Comment on above: Performed By: #### 1 6424519, 5371595, 5833068, 4299811032 ####[facility] (DEFAULT)[address] [place] [address] Neutrophils/100 WBC (Bld) 53 % Normal 44-88 [facility] Comment on above: Performed By: #### 1 1712139, 7438799, 8965185, 0505905295 ####[facility] (DEFAULT)[address] [place] [address] BMP Standardon 07-10-2022 eGFR Non AA 57 mL/min/1.73m2 Invalid Interpretation Code [facility] Comment on above: Performed By: #### 1 0867744, 6901785, 3420402, 4802464020 ####[facility] (DEFAULT)[address] [place] [address] eGFR AA >60 Invalid Interpretation Code [facility] Comment on above: Result Comment: Publishing Director lokesh Kidney disease could be indicated at eGFRs of less than 60 ml/min/1.73m2. Kidney Failure is indicated at less than 15 ml/min/1.73m2 Performed By: #### 1 7795164, 8910161, 2404505, 9132978588 ####[facility] (DEFAULT)[address] [place] [address] 65242 Anion gap [Moles/Vol] 14.0 mmol/L Normal 5.0-19.0 [facility] Comment on above: Performed By: #### 1 6798245, 8855622, 1244182, 2165091247 ####[facility] (DEFAULT)[address] [place] [address] 94570 Calcium [Mass/Vol] 9.2 mg/dL Normal 8.9-10.3 [facility] Comment on above: Performed By: #### 1 7670586, 2288332, 2538629, 7670934046 ####[facility] (DEFAULT)[address] [place] [address] 72961 Chloride [Moles/Vol] 105 mmol/L Normal 101-111 [facility] Comment on above: Performed By: #### 1 0225825, 1940982, 5782483, 0809978821 ####[facility] (DEFAULT)[address] [place] [address] 52321 CO2 [Moles/Vol] 20 mmol/L Low 21-32 [facility] Comment on above: Performed By: #### 1 4763051, 7420947, 1394828, 0124859043 ####[facility] (DEFAULT)[address] [place] [address] 95384 Creatinine [Mass/Vol] 1.26 mg/dL Normal 0.90-1.30 [facility] Comment on above: Performed By: #### 1 0140890, 2039664, 4481173, 9240632943 ####[facility] (DEFAULT)[address] [place] [address] 31404 Glucose [Mass/Vol] 210.0 mg/dL High 74.0-118.0 [facility] Comment on above: Performed By: #### 1 9599300, 2103821, 9788760, 5437681211 ####[facility] (DEFAULT)[address] [place] [address] 87860 Osmolality 298 mOsm/L Invalid Interpretation Code [facility] Comment on above: Performed By: #### 1 0685170, 3051446, 0424804, 0415288168 ####[facility] (DEFAULT)[address] [place] [address] 57638 Potassium [Moles/Vol] 5.3 mmol/L High 3.6-5.1 [facility] Comment on above: Performed By: #### 1 7868089, 3319003, 6497046, 3600983694 ####[facility] (DEFAULT)[address] [place] [address] 58302 Sodium [Moles/Vol] 134.0 mmol/L Low 136.0-144.0 [facility] Comment on above: Performed By: #### 1 3430454, 8784511, 0092552, 0558179765 ####[facility] (DEFAULT)[address] [place] [address] 89354 Urea nitrogen [Mass/Vol] 78 mg/dL High 8-26 [facility] Comment on above: Performed By: #### 1 8022273, 3272230, 0908043, 1257193708 ####[facility] (DEFAULT)[address] [place] [address] 81787 Urea nitrogen/Creatinine [Mass ratio] 62.0 mg/mg High 4.6-16.2 [facility] Comment on above: Performed By: #### 1 7002088, 7623362, 6888904, 7187808027 ####[facility] (DEFAULT)[address] [place] [address] 44692 C Urineon 07-10-2022 C Urine Normal [facility] Comment on above: Performed By: #### 1 190920479, 4771070, 23356275 ####[facility] (DEFAULT)[address] [place] [address] 29170 CBC w/ Auto Diffon Erythrocyte distribution width (RBC) [Ratio] 13.6 % Normal 11.5-15.0 [facility] Comment on above: Performed By: #### 1 6313860, 3265103, 6350462, 7103490963 ####[facility] (DEFAULT)[address] [place] [address] 90269 Hematocrit (Bld) [Volume fraction] 34.9 % Normal 34.8-51.9 [facility] Comment on above: Performed By: #### 1 3359157, 1261626, 3399655, 6477148447 ####[facility] (DEFAULT)[address] [place] [address] 14327 Hemoglobin (Bld) [Mass/Vol] 11.5 g/dL Low 11.8-17.7 [facility] Comment on above: Performed By: #### 1 2918160, 1376582, 5238207, 3537483432 ####[facility] (DEFAULT)[address] [place] [address] 16772 Instr WBC 8.1 x10 Invalid Interpretation Code [facility] Comment on above: Performed By: #### 1 3168965, 3596098, 0834571, 4935328449 ####[facility] (DEFAULT)[address] [place] [address] 31052 Man Diff? Auto Normal [facility] Comment on above: Performed By: #### 1 8816016, 3230968, 0268443, 8742422282 ####[facility] (DEFAULT)[address] [place] [address] 85828 MCH (RBC) [Entitic mass] 29 pg Normal 24-34 [facility] Comment on above: Performed By: #### 1 1270731, 0453694, 1079542, 9851791743 ####[facility] (DEFAULT)[address] [place] [address] 88973 MCHC (RBC) [Mass/Vol] 33 g/dL Normal 26-37 [facility] Comment on above: Performed By: #### 1 8025325, 2460737, 0760636, 9240298331 ####[facility] (DEFAULT)[address] [place] [address] 64559 MCV (RBC) [Entitic vol] 89 fL Normal 81-100 [facility] Comment on above: Performed By: #### 1 4742174, 9505338, 3967223, 7159673624 ####[facility] (DEFAULT)[address] [place] [address] 51623 Platelet 256 x10 Normal 138-427 [facility] Comment on above: Performed By: #### 1 0663572, 1802631, 9882863, 9226222756 ####[facility] (DEFAULT)[address] [place] [address] 06525 Platelet mean volume (Bld) [Entitic vol] 12.3 fL High 6.3-10.2 [facility] Comment on above: Performed By: #### 1 1593291, 9100681, 9738910, 1607521749 ####[facility] (DEFAULT)[address] [place] [address] 21262 RBC 3.92 x10 Normal 3.70-5.30 [facility] Comment on above: Performed By: #### 1 5193209, 9653854, 5515340, 3423073981 ####[facility] (DEFAULT)[address] [place] [address] 20764 WBC 8.1 x10 Normal 3.5-10.5 [facility] Comment on above: Performed By: #### 1 0518461, 0523572, 7014953, 2750885856 ####[facility] (DEFAULT)[address] [place] [address] 93537 CKon 07-10-2022 CK [Catalytic activity/Vol] 76 U/L Normal 49-397 [facility] Comment on above: Performed By: #### 1 9216579, 5334379, 1209534, 9819191137 ####[facility] (DEFAULT)[address] [place] [address] Chest/Abdomen/Pelvis w/o Contraston 07-10-2022 CT Chest/Abdomen/Pelvis w/o Contrast Normal [facility] MRI Brain w/o Contraston MRI Brain w/o Contrast Normal [facility] POCT Glucose Levelon 022 Glucose [Mass/Vol] 231 mg/dL High 74-118 [facility] Comment on above: Performed By: #### 4 [id number] ####[facility] (DEFAULT)[address] [place] [address] 30008 Glucose [Mass/Vol] 214 mg/dL High 74-118 [facility] Comment on above: Performed By: #### 4 198150061 ####[facility] (DEFAULT)[address] [place] [address] 48704 Glucose [Mass/Vol] 163 mg/dL High 74-118 [facility] Comment on above: Performed By: #### 4 835092455 ####[facility] (DEFAULT)[address] [place] [address] 32962 Glucose [Mass/Vol] 174 mg/dL High 74-118 [facility] Comment on above: Performed By: #### 4 [id number] ####[facility] (DEFAULT)[address] [place] [address] 51509 Progress Note - Nurseon 10-0 Progress Note - Nurse [facility] Progress Note - Nurse Normal [facility] Telemetry Stripson Telemetry Strips [id number] 00 [id number]#1.0 0OTGTIFF Normal [facility] .Auto Diff 07-09-2022 Auto [place] % 7 % Normal -12 [facility] Comment on above: Performed By: #### 7 175457, 1639414, 9811420, 822473540, 7873394151, 87864964 ####[facility] (DEFAULT)[address] [place] [address] Baso Abs# 0.0 x10 Normal 0.0-0.2 [facility] Comment on above: Performed By: #### 7 871019, 8117413, 2517401, 135231088, 5308244515, 97594329 ####[facility] (DEFAULT)[address] [place] [address] Basophils/100 WBC (Bld) 0.2 % Normal 0.2-2.0 [facility] Comment on above: Performed By: #### 7 927214, 6596566, 1129057, 879937087, 6737748505, 02629014 ####[facility] (DEFAULT)[address] [place] [address] Eos Abs# 0.4 x10 Normal 0.0-0.4 [facility] Comment on above: Performed By: #### 7 610435, 1653628, 3490563, 747267634, 9464095016, 39086722 ####[facility] (DEFAULT)[address] [place] [address] 11321 Eosinophils/100 WBC (Bld) 4.4 % High 0.9-4.0 [facility] Comment on above: Performed By: #### 7 046108, 7338399, 6642092, 490321718, 1887702180, 75954324 ####[facility] (DEFAULT)[address] [place] [address] 78169 Lymph Abs# 2.2 x10 Normal 1.3-2.9 [facility] Comment on above: Performed By: #### 7 238865, 0023897, 6369390, 852969232, 4263368016, 34426965 ####[facility] (DEFAULT)[address] [place] [address] 00245 Lymphocytes/100 WBC (Bld) 21 % Normal 14-48 [facility] Comment on above: Performed By: #### 7 374127, 7658415, 3874234, 271925661, 0588830844, 41959636 ####[facility] (DEFAULT)[address] [place] [address] [place] Abs# 0.8 x10 Normal 0.0-0.8 [facility] Comment on above: Performed By: #### 7 206552, 3084078, 3559707, 946932733, 2895516076, 00581870 ####[facility] (DEFAULT)[address] [place] [address] Neut Abs# 6.8 x10 Normal 1.5-9.2 [facility] Comment on above: Performed By: #### 7 606963, 7087472, 5351201, 645432847, 6060588321, 77958411 ####[facility] (DEFAULT)[address] [place] [address] Neutrophils/100 WBC (Bld) 67 % Normal 44-88 [facility] Comment on above: Performed By: #### 7 152245, 1491837, 5192799, 544530047, 2829937807, 02971679 ####[facility] (DEFAULT)[address] [place] [address] CBC w/ Auto Diffon 2 Erythrocyte distribution width (RBC) [Ratio] 13.4 % Normal 11.5-15.0 [facility] Comment on above: Performed By: #### 7 834036, 6802419, 2847133, 428729582, 3386590031, 94933794 ####[facility] (DEFAULT)[address] [place] [address] Hematocrit (Bld) [Volume fraction] 37.2 % Normal 34.8-51.9 [facility] Comment on above: Performed By: #### 7 512321, 4682448, 1987827, 350534258, 3315164607, 96267807 ####[facility] (DEFAULT)[address] [place] [address] Hemoglobin (Bld) [Mass/Vol] 12.4 g/dL Normal 11.8-17.7 [facility] Comment on above: Performed By: #### 7 182052, 3598812, 3100660, 787354254, 2240579087, 36810182 ####[facility] (DEFAULT)[address] [place] [address] Instr WBC 10.2 x10 Invalid Interpretation Code [facility] Comment on above: Performed By: #### 7 929598, 1521748, 5780313, 688334037, 3414328709, 45194908 ####[facility] (DEFAULT)[address] [place] [address] Man Diff? Auto Normal [facility] Comment on above: Performed By: #### 7 667001, 3718257, 5459284, 005942507, 7534703603, 13625557 ####[facility] (DEFAULT)[address] [place] [address] MCH (RBC) [Entitic mass] 29 pg Normal 24-34 [facility] Comment on above: Performed By: #### 7 427734, 0364334, 5344200, 291148468, 3087916008, 97620136 ####[facility] (DEFAULT)[address] [place] [address] 41320 MCHC (RBC) [Mass/Vol] 33 g/dL Normal 26-37 [facility] Comment on above: Performed By: #### 7 906256, 5369732, 5286937, 545549189, 2816630819, 13348264 ####[facility] (DEFAULT)[address] [place] [address] 83946 MCV (RBC) [Entitic vol] 88 fL Normal 81-100 [facility] Comment on above: Performed By: #### 7 733908, 4203523, 8905215, 942550713, 1829122545, 70846271 ####[facility] (DEFAULT)[address] [place] [address] 16221 Platelet 284 x10 Normal 138-427 [facility] Comment on above: Performed By: #### 7 399636, 5431901, 2809938, 648687930, 6783846446, 87329074 ####[facility] (DEFAULT)[address] [place] [address] Platelet mean volume (Bld) [Entitic vol] 12.1 fL High 6.3-10.2 [facility] Comment on above: Performed By: #### 7 468013, 3307662, 7691802, 378389179, 5919696610, 38550220 ####[facility] (DEFAULT)[address] [place] [address] RBC 4.22 x10 Normal 3.70-5.30 [facility] Comment on above: Performed By: #### 7 186039, 3673227, 8596704, 603129569, 3589814845, 74966247 ####[facility] (DEFAULT)[address] [place] [address] WBC 10.2 x10 Normal 3.5-10.5 [facility] Comment on above: Performed By: #### 7 147178, 7143653, 9034323, 682162243, 2098138264, 07991035 ####[facility] (DEFAULT)[address] [place] [address] Standardon 07-09-2022 eGFR Non AA 53 mL/min/1.73m2 Invalid Interpretation Code [facility] Comment on above: Performed By: #### 7 293527, 3800113, 9726681, 950421319, 9702094809, 68299463 ####[facility] (DEFAULT)[address] [place] [address] eGFR AA >60 Invalid Interpretation Code [facility] Comment on above: Result Comment: Publishing Director lokesh Kidney disease could be indicated at eGFRs of less than 60 ml/min/1.73m2. Kidney Failure is indicated at less than 15 ml/min/1.73m2 Performed By: #### 7 590677, 5822897, 2883432, 959090703, 3987653519, 35475712 ####[facility] (DEFAULT)[address] [place] [address] Albumin [Mass/Vol] 3.7 g/dL Normal 3.5-5.0 [facility] Comment on above: Performed By: #### 7 699273, 7604582, 6785255, 928548173, 5092757644, 11879093 ####[facility] (DEFAULT)[address] [place] [address] 44412 Albumin/Globulin [Mass ratio] 1.0 {ratio} Low 1.4-2.6 [facility] Comment on above: Performed By: #### 7 650759, 7407986, 5957814, 706233853, 9560753340, 26555109 ####[facility] (DEFAULT)[address] [place] [address] Alk Phos 61 IU/L Normal 32-91 [facility] Comment on above: Performed By: #### 7 [id number], [id number], [id number], [id number], [id number], [id number] ####[facility] (DEFAULT)[address] [place] [address] ALT [Catalytic activity/Vol] 18.0 U/L Normal 17.0-63.0 [facility] Comment on above: Performed By: #### 7 [id number], [id number], 4093548, [id number], [id number], [id number] ####[facility] (DEFAULT)[address] [place] [address] [id number] Anion gap [Moles/Vol] 17.0 mmol/L Normal 5.0-19.0 [facility] Comment on above: Performed By: #### 7 [id number], [id number], [id number], [id number], [id number], [id number] ####[facility] (DEFAULT)[address] [place] [address] 94525 AST [Catalytic activity/Vol] 17 U/L Normal 15-41 [facility] Comment on above: Performed By: #### 7 [id number], [id number], 7645441, [id number], [id number], [id number] ####[facility] (DEFAULT)[address] [place] [address] 44156 Bili Total 0.9 mg/dL Normal 0.3-1.2 [facility] Comment on above: Performed By: #### 7 263805, 2176571, 0958910, 861232844, 6447976264, 05927444 ####[facility] (DEFAULT)[address] [place] [address] 02087 Calcium [Mass/Vol] 9.2 mg/dL Normal 8.9-10.3 [facility] Comment on above: Performed By: #### 7 021149, 0947826, 9941885, 394971384, 5692671906, 98337678 ####[facility] (DEFAULT)[address] [place] [address] 56923 Chloride [Moles/Vol] 105 mmol/L Normal 101-111 [facility] Comment on above: Performed By: #### 7 638719, 7911272, 6975288, 519679789, 2555459791, 56530547 ####[facility] (DEFAULT)[address] [place] [address] 56047 CO2 [Moles/Vol] 19 mmol/L Low 21-32 [facility] Comment on above: Performed By: #### 7 035575, 3569965, 1156118, 848766609, 5697657991, 15495145 ####[facility] (DEFAULT)[address] [place] [address] 75391 Creatinine [Mass/Vol] 1.35 mg/dL High 0.90-1.30 [facility] Comment on above: Performed By: #### 7 367010, 7404529, 6155673, 763945275, 4073236562, 31446911 ####[facility] (DEFAULT)[address] [place] [address] 85337 Globulin (S) [Mass/Vol] 3.6 g/dL Normal 1.5-4.3 [facility] Comment on above: Performed By: #### 7 046776, 6516409, 7698160, 390982726, 8119612702, 68261533 ####[facility] (DEFAULT)[address] [place] [address] 96078 Glucose [Mass/Vol] 152.0 mg/dL High 74.0-118.0 [facility] Comment on above: Performed By: #### 7 861417, 2724890, 1093625, 253650563, 6556932724, 85309276 ####[facility] (DEFAULT)[address] [place] [address] 44199 Osmolality 305 mOsm/L Invalid Interpretation Code [facility] Comment on above: Performed By: #### 7 938202, 9166590, 5734145, 676646061, 4041627176, 67004270 ####[facility] (DEFAULT)[address] [place] [address] 33339 Potassium [Moles/Vol] 5.6 mmol/L High 3.6-5.1 [facility] Comment on above: Performed By: #### 7 941141, 2191400, 7241520, 996475725, 0979795886, 86492350 ####[facility] (DEFAULT)[address] [place] [address] 21081 Protein [Mass/Vol] 7.3 g/dL Normal 6.5-8.1 [facility] Comment on above: Performed By: #### 7 909716, 4036792, 8245117, 367158911, 9463821300, 28719022 ####[facility] (DEFAULT)[address] [place] [address] 85025 Sodium [Moles/Vol] 135.0 mmol/L Low 136.0-144.0 [facility] Comment on above: Performed By: #### 7 230577, 6132352, 2024355, 092892178, 2839623559, 72949628 ####[facility] (DEFAULT)[address] [place] [address] 18680 Urea nitrogen [Mass/Vol] 101 mg/dL High 8-26 [facility] Comment on above: Result Comment: Crit ical BUN 101 result called and read back ok to: 2S LISA SALDIVAR at: 05:53:11 07/09/2022 by: WALKER Performed By: #### 7 494463, 3025312, 1402117, 946487752, 2940795841, 54993517 ####[facility] (DEFAULT)[address] [place] [address] 03800 Urea nitrogen/Creatinine [Mass ratio] 75.0 mg/mg High 4.6-16.2 [facility] Comment on above: Performed By: #### 7 782128, 5304685, 6456158, 042848705, 4638797680, 93953807 ####[facility] (DEFAULT)[address] [place] [address] 20899 ED Clinical Summaryon 2021 ED Clinical Summary Normal [facility] ED Patient Education Noteon 07-09-2022 ED Patient Education Note Education Materials [facility] ED Patient Summaryon ED Patient Summary Normal [facility] Magnesiumon 07-09-2022 Magnesium [Mass/Vol] 2.32 mg/dL Normal 1.80-2.50 [facility] Comment on above: Performed By: #### 7 597578, 8395843, 1329186, 091314212, 7961020519, 67426360 ####[facility] (DEFAULT)[address] [place] [address] 11558 Nutrition Noteon 07-09-2022 Nutrition Note [facility] POCT Glucose Levelon Glucose [Mass/Vol] 251 mg/dL High [address] [place] [address] Comment on above: Performed By: #### 4 [id number] ####[facility] (DEFAULT)[address] [place] [address] 83823 Glucose [Mass/Vol] 214 mg/dL High [address] [place] [address] Comment on above: Performed By: #### 4 [id number] ####[facility] (DEFAULT)[address] [place] [address] 66214 Glucose [Mass/Vol] 261 mg/dL High [address] [place] [address] Comment on above: Performed By: #### 4 [id number] ####[facility] (DEFAULT)[address] [place] [address] 29292 Glucose, POC See Comment Invalid Interpretation Code [address] [place] [address] Comment on above: Result Comment: Kasandra vaz Result per Ceci Vazquez on Performed By: #### 4 [id number] ####[facility] (DEFAULT)[address] [place] [address] 51780 Glucose, POC See Comment Invalid Interpretation Code [address] [place] [address] Comment on above: Result Comment: Kasandra vaz Result per Ceci Vazquez on 2 Performed By: #### 4 [id number] ####[facility] (DEFAULT)[address] [place] [address] 22162 Glucose [Mass/Vol] 80 mg/dL Normal 74-118 [facility] Comment on above: Performed By: #### 4 [id number] ####[facility] (DEFAULT)[address] [place] [address] 02184 Glucose [Mass/Vol] 224 mg/dL High 74-118 [facility] Comment on above: Performed By: #### 4 [id number] ####[facility] (DEFAULT)[address] [place] [address] 47016 Glucose [Mass/Vol] 157 mg/dL High [address] [place] [address] Comment on above: Performed By: #### 4 [id number] ####[facility] (DEFAULT)[address] [place] [address] 48297 Glucose [Mass/Vol] 148 mg/dL High [address] [place] [address] Comment on above: Performed By: #### 4 [id number] ####[facility] (DEFAULT)[address] [place] [address] 83234 Glucose [Mass/Vol] 145 mg/dL High -[address] [place] [address] Comment on above: Performed By: #### 4 [id number] ####[facility] (DEFAULT)[address] [place] [address] 30227 Glucose [Mass/Vol] 133 mg/dL High [address] Comment on above: Performed By: #### 4 [id number] ####[facility] (DEFAULT)[address] [place] [address] 16718 TSH w/ Reflex to FT4on 07-09 TSH Qn 1.97 m[IU]/L Normal 0.45-5.33 [facility] Comment on above: Result Comment: Gene ral Population (males and non- females, aged 21-88) 0.45 - 5.33 Females, 1st Trimester 0.05 - 3.70 Females, 2nd Trimester 0.31 - 4.35 Females, 3rd Trimester 0.41 - 5.18 Performed By: #### 7 134867, 0048911, 7667080, 133512768, 5546794466, 21303445 ####[facility] (DEFAULT)[address] [place] [address] Telemetry Stripson 2 Telemetry Strips [id number]#1.00 OTGTIFF [facility] UA Lolww3zz 07-09-2022 UA Bacteria 2+ [facility] Comment on above: Order Comment: Urina lysis Microscopic order added on by [employer] Rules system. Performed By: #### 5 9342544, 3697506, [id number] ####[facility] (DEFAULT)[address] [place] [address] UA RBC 0-2 [facility] Comment on above: Order Comment: Urina lysis Microscopic order added on by [employer] system. Performed By: #### 5 0800885, 2439787, 3640258823 ####[facility] (DEFAULT)[address] [place] [address] UA Squam Epi Rare [facility] Comment on above: Order Comment: Urina lysis Microscopic order added on by [employer] system. Performed By: #### 5 4175278, 1946612, 6807841803 ####[facility] (DEFAULT)[address] [place] [address] UA WBC 20-25 [facility] Comment on above: Order Comment: Urina lysis Microscopic order added on by [employer] system. Performed By: #### 5 2947007, 7041778, [id number] ####[facility] (DEFAULT)[address] [place] [address] UA w Culture if Ind Standard on 07-09-2022 Breakpoint UA [facility] Comment on above: Order Comment: Autom atically placed with order Insert Rivera Cath Performed By: #### 5 9359269, 2682581, [id number] ####[facility] (DEFAULT)[address] [place] [address] 54665 Color (U) Yellow [facility] Comment on above: Order Comment: Autom atically placed with order Insert Rivera Cath Performed By: #### 5 0709671, 7584118, [id number] ####[facility] (DEFAULT)[address] [place] [address] Culture? Indicated Invalid Interpretation Code [facility] Comment on above: Order Comment: Autom atically placed with order Insert Rivera Cath Result Comment: Resu lt created by rule GL_MAGR_ADD_UA_CULT Result created by rule GL_MAGR_ADD_UA_CULT Result created by rule GL_MAGR_ADD_UA_CULT1 Result created by rule GL_MAGR_ADD_UA_CULT Performed By: #### 5 7131007, 7111822, [id number] ####[facility] (DEFAULT)[address] [place] [address] Glucose (U) [Mass/Vol] Negative [facility] Comment on above: Order Comment: Autom atically placed with order Insert Rivera Cath Performed By: #### 5 9371821, 0945228, [id number] ####[facility] (DEFAULT)[address] [place] [address] Ketones Ql (U) Negative [facility] Comment on above: Order Comment: Autom atically placed with order Insert Rivera Cath Performed By: #### 5 3597584, 9362438, [id number] ####[facility] (DEFAULT)[address] [place] [address] 80498 Micro? Indicated Invalid Interpretation Code [facility] Comment on above: Order Comment: Autom atically placed with order Insert Rivera Cath Result Comment: Resu lt created by rule GL_MAGR_ADD_UA_MICRO Performed By: #### 5 6980259, 7522927, [id number] ####[facility] (DEFAULT)[address] [place] [address] UA Bilirubin Negative [facility] Comment on above: Order Comment: Autom atically placed with order Insert Rivera Cath Performed By: #### 5 4409215, 1187628, [id number] ####[facility] (DEFAULT)[address] [place] [address] UA Blood TRACE Abnormal NEGATIVE [facility] Comment on above: Order Comment: Autom atically placed with order Insert Rivera Cath Performed By: #### 5 5196524, 6855947, 5584936052 ####[facility] (DEFAULT)[address] [place] [address] UA Clarity CLEAR Normal CLEAR [facility] Comment on above: Order Comment: Autom atically placed with order Insert Rivera Cath Performed By: #### 5 1042202, 8357194, [id number] ####[facility] (DEFAULT)[address] [place] [address] UA Leuk Est MODERATE Abnormal NEGATIVE [facility] Comment on above: Order Comment: Autom atically placed with order Insert Rivera Cath Performed By: #### 5 3996617, 9569505, 6855747587 ####[facility] (DEFAULT)[address] [place] [address] UA Nitrite Positive Abnormal NEGATIVE [facility] Comment on above: Order Comment: Autom atically placed with order Insert Rivera Cath Performed By: #### 5 2574143, 6711942, 9878060996 ####[facility] (DEFAULT)[address] [place] [address] 36151 UA pH 5.5 Normal 5-8 [facility] Comment on above: Order Comment: Autom atically placed with order Insert Rivera Cath Performed By: #### 5 5005294, 3181895, [id number] ####[facility] (DEFAULT)[address] [place] [address] UA Protein TRACE Abnormal NEGATIVE [facility] Comment on above: Order Comment: Autom atically placed with order Insert Rivera Cath Performed By: #### 5 1451738, 0333712, [id number] ####[facility] (DEFAULT)[address] [place] [address] 58083 UA Spec Grav 1.020 Normal 1.001-1.035 [facility] Comment on above: Order Comment: Autom atically placed with order Insert Rivera Cath Performed By: #### 5 8596005, 3792953, 6430363484 ####[facility] (DEFAULT)[address] [place] [address] UA Urobilinogen 0.2 mg/dL Normal 0.2-1.0 [facility] Comment on above: Order Comment: Autom atically placed with order Insert Rivera Cath Performed By: #### 5 2580527, 3663059, 6967806905 ####[facility] (DEFAULT)[address] [place] [address] Urine Source Catheter Normal [facility] Comment on above: Order Comment: Autom atically placed with order Insert Rivera Cath Performed By: #### 5 6914242, 8112016, 5581147354 ####[facility] (DEFAULT)[address] [place] [address] Vit B12 Lvlon 07-09-2022 Vit B12 405 Normal 180-914 [facility] Comment on above: Performed By: #### 7 794215, 4809967, 2731360, 737426566, 0343989323, 20735870 ####[facility] (DEFAULT)[address] [place] [address] .Auto Diff 1on 07-08-2022 Auto [place] % 4 % Normal 1-12 [facility] Comment on above: Performed By: #### 5 942586994, 1521920229, 13175481, 7328579501, 7668326, 6992580 ####[facility] (DEFAULT)[address] [place] [address] Baso Abs# 0.0 x10 Normal 0.0-0.2 [facility] Comment on above: Performed By: #### 5 629088765, 9673833952, 48586357, 5802145177, 6577872, 7049356 ####[facility] (DEFAULT)[address] [place] [address] Basophils/100 WBC (Bld) 0.2 % Normal 0.2-2.0 [facility] Comment on above: Performed By: #### 5 799188265, 9349792075, 38537994, 7556278470, 3278109, 2386007 ####[facility] (DEFAULT)[address] [place] [address] 63946 Eos Abs# 0.5 x10 High 0.0-0.4 [facility] Comment on above: Performed By: #### 5 897920674, 9524056789, 01715609, 8332469984, 7822898, 3331665 ####[facility] (DEFAULT)[address] [place] [address] 08360 Eosinophils/100 WBC (Bld) 4.1 % High 0.9-4.0 [facility] Comment on above: Performed By: #### 5 636969764, 6443219766, 37567500, 0281172794, 4832767, 4035981 ####[facility] (DEFAULT)[address] [place] [address] 66429 Lymph Abs# 1.9 x10 Normal 1.3-2.9 [facility] Comment on above: Performed By: #### 5 816866814, 7903342129, 55721934, 4596076906, 2077205, 2911270 ####[facility] (DEFAULT)[address] [place] [address] 64523 Lymphocytes/100 WBC (Bld) 17 % Normal 14-48 [facility] Comment on above: Performed By: #### 5 216999638, 5126009499, 05858726, 0417387609, 6117431, 8641506 ####[facility] (DEFAULT)[address] [place] [address] 36201 [place] Abs# 0.4 x10 Normal 0.0-0.8 [facility] Comment on above: Performed By: #### 5 497460127, 9285536406, 46511174, 0192493965, 4257865, 7072136 ####[facility] (DEFAULT)[address] [place] [address] 61812 Neut Abs# 8.4 x10 Normal 1.5-9.2 [facility] Comment on above: Performed By: #### 5 093928893, 8824788387, 75595104, 8547410871, 0952886, 8581604 ####[facility] (DEFAULT)[address] [place] [address] 76396 Neutrophils/100 WBC (Bld) 75 % Normal 44-88 [facility] Comment on above: Performed By: #### 5 196873650, 5297958295, 14890168, 4272258664, 3019544, 9605947 ####[facility] (DEFAULT)[address] [place] [address] 99388 BNP.on 07-08-2022 Internal Control Pass Normal [facility] Comment on above: Performed By: #### 5 817725965, 6013107800, 58223902, 0454375656, 9250674, 6806618 ####[facility] (DEFAULT)[address] [place] [address] 40229 Natriuretic peptide B (Bld) [Mass/Vol] 318.0 pg/mL High 0.0-100.0 [facility] Comment on above: Result Comment: BNP results greater than 100 pg/mL are considered abnormal and suggestive of patients with CHF. Higher BNP concentrations measured in the first 72 hours after an acute coronary syndorme are associated with an increased risk of , myocardial infarction, and CHF. Performed By: #### 5 [id number], 8134457827, 51350814, 7925167759, 8282367, 7705041 ####[facility] (DEFAULT)[address] [place] [address] 39070 CBC w/ Auto Diffon Erythrocyte distribution width (RBC) [Ratio] 13.7 % Normal 11.5-15.0 [facility] Comment on above: Performed By: #### 5 779119393, 4538399508, 51332907, 4443965499, 5618351, 1635004 ####[facility] (DEFAULT)[address] [place] [address] 39735 Hematocrit (Bld) [Volume fraction] 43.1 % Normal 34.8-51.9 [facility] Comment on above: Performed By: #### 5 973128598, 9905693394, 28446699, 7178616129, 3564617, 2069667 ####[facility] (DEFAULT)[address] [place] [address] Hemoglobin (Bld) [Mass/Vol] 14.1 g/dL Normal 11.8-17.7 [facility] Comment on above: Performed By: #### 5 506238250, 2116348158, 64830218, 0392765249, 0885316, 3548784 ####[facility] (DEFAULT)[address] [place] [address] Instr WBC 11.2 x10 Invalid Interpretation Code [facility] Comment on above: Performed By: #### 5 951407296, 0591260531, 07696245, 2147560773, 5762135, 7241162 ####[facility] (DEFAULT)[address] [place] [address] Man Diff? Auto Normal [facility] Comment on above: Performed By: #### 5 358353842, 7979650957, 40330203, 7840833760, 4803755, 4262676 ####[facility] (DEFAULT)[address] [place] [address] 65750 MCH (RBC) [Entitic mass] 29 pg Normal 24-34 [facility] Comment on above: Performed By: #### 5 911287433, 5919848255, 04250170, 7167467138, 3736559, 9511420 ####[facility] (DEFAULT)[address] [place] [address] 08324 MCHC (RBC) [Mass/Vol] 33 g/dL Normal 26-37 [facility] Comment on above: Performed By: #### 5 921105999, 1420472616, 65902539, 4241283203, 6247840, 3677732 ####[facility] (DEFAULT)[address] [place] [address] 41778 MCV (RBC) [Entitic vol] 88 fL Normal 81-100 [facility] Comment on above: Performed By: #### 5 342299439, 8242967205, 06229862, 6796544176, 5769048, 4911757 ####[facility] (DEFAULT)[address] [place] [address] 10299 Platelet 278 x10 Normal 138-427 [facility] Comment on above: Performed By: #### 5 531682394, 4977833527, 76134811, 7738805594, 7558539, 5548234 ####[facility] (DEFAULT)[address] [place] [address] 68419 Platelet mean volume (Bld) [Entitic vol] 11.4 fL High 6.3-10.2 [facility] Comment on above: Performed By: #### 5 250065567, 1458852212, 93487921, 7827753104, 5307607, 0314664 ####[facility] (DEFAULT)[address] [place] [address] 49110 RBC 4.90 x10 Normal 3.70-5.30 [facility] Comment on above: Performed By: #### 5 741966381, 1879170147, 76169193, 4079779968, 8112744, 7829230 ####[facility] (DEFAULT)[address] [place] [address] 69717 WBC 11.2 x10 High 3.5-10.5 [facility] Comment on above: Performed By: #### 5 362629966, 6500506678, 21805589, 5509698667, 1421277, 0051009 ####[facility] (DEFAULT)[address] [place] [address] 13747 CMP Standardon 07-08-2022 Urea nitrogen [Mass/Vol] 100 mg/dL High 8-26 [facility] Comment on above: Result Comment: Resu lts confirmed by dilutionCritical BUN 100 result called and read back ok to: KERI MALDONADO RN IN ER at: 20:29:42 07/08/2022 by: SYLVIA Performed By: #### 5 882875561, 8665530703, 56149391, 8567877476, 1698104, 4417786 ####[facility] (DEFAULT)[address] [place] [address] 22474 eGFR Non AA 41 mL/min/1.73m2 Invalid Interpretation Code [facility] Comment on above: Performed By: #### 5 252810284, 0470450400, 83321022, 5177743849, 4656842, 3237214 ####[facility] (DEFAULT)[address] [place] [address] eGFR AA 49 mL/min/1.73m2 Invalid Interpretation Code [facility] Comment on above: Result Comment: Publishing Director lokesh Kidney disease could be indicated at eGFRs of less than 60 ml/min/1.73m2. Kidney Failure is indicated at less than 15 ml/min/1.73m2 Performed By: #### 5 190624929, 2627012081, 77069549, 7374849498, 3560076, 5085242 ####[facility] (DEFAULT)[address] [place] [address] Albumin [Mass/Vol] 4.0 g/dL Normal 3.5-5.0 [facility] Comment on above: Performed By: #### 5 456851943, 2436577212, 57169612, 5810106677, 2018488, 6067403 ####[facility] (DEFAULT)[address] [place] [address] Albumin/Globulin [Mass ratio] 1.0 {ratio} Low 1.4-2.6 [facility] Comment on above: Performed By: #### 5 698290657, 8631930090, 96952326, 9877644965, 3653413, 6437430 ####[facility] (DEFAULT)[address] [place] [address] 89265 Alk Phos 70 IU/L Normal 32-91 [facility] Comment on above: Performed By: #### 5 746249842, 8854074498, 92215240, 7767538006, 8885837, 8131497 ####[facility] (DEFAULT)[address] [place] [address] ALT [Catalytic activity/Vol] 19.0 U/L Normal 17.0-63.0 [facility] Comment on above: Performed By: #### 5 362108164, 2644978159, 22522134, 1123589528, 8222391, 7864755 ####[facility] (DEFAULT)[address] [place] [address] 44763 Anion gap [Moles/Vol] 19.0 mmol/L Normal 5.0-19.0 [facility] Comment on above: Performed By: #### 5 848475018, 1203273514, 70817186, 7790078530, 0583516, 6531060 ####[facility] (DEFAULT)[address] [place] [address] 72741 AST [Catalytic activity/Vol] 20 U/L Normal 15-41 [facility] Comment on above: Performed By: #### 5 991709707, 9256781015, 06240088, 6706044812, 6312315, 2953447 ####[facility] (DEFAULT)[address] [place] [address] 92529 Bili Total 0.6 mg/dL Normal 0.3-1.2 [facility] Comment on above: Performed By: #### 5 982046440, 8416804923, 84341921, 9753217171, 7206156, 3962370 ####[facility] (DEFAULT)[address] [place] [address] 26348 Calcium [Mass/Vol] 9.5 mg/dL Normal 8.9-10.3 [facility] Comment on above: Performed By: #### 5 220883419, 7234629554, 23067973, 0497863083, 1828884, 2867632 ####[facility] (DEFAULT)[address] [place] [address] 92594 Chloride [Moles/Vol] 104 mmol/L Normal 101-111 [facility] Comment on above: Performed By: #### 5 331861579, 6433949446, 24010164, 2789728383, 0365653, 3716126 ####[facility] (DEFAULT)[address] [place] [address] 60557 CO2 [Moles/Vol] 19 mmol/L Low 21-32 [facility] Comment on above: Performed By: #### 5 946257068, 6678173407, 92570551, 3664324461, 1128442, 5616039 ####[facility] (DEFAULT)[address] [place] [address] 15645 Creatinine [Mass/Vol] 1.68 mg/dL High 0.90-1.30 [facility] Comment on above: Performed By: #### 5 807070982, 6189629502, 49875852, 2793628708, 3978793, 3105717 ####[facility] (DEFAULT)[address] [place] [address] 12931 Globulin (S) [Mass/Vol] 3.9 g/dL Normal 1.5-4.3 [facility] Comment on above: Performed By: #### 5 [id number], [id number] ####[facility] (DEFAULT)[address] [place] [address] [id number] Glucose [Mass/Vol] 93.0 mg/dL Normal 74.0-118.0 [facility] Comment on above: Performed By: #### 5 [id number], [id number], [id number] ####[facility] (DEFAULT)[address] [place] [address] 60054 Osmolality 304 mOsm/L Invalid Interpretation Code [facility] [facility] Comment on above: Performed By: #### 5 [id number], [id number], [id number], [id number], [id number], [id number] ####[facility] (DEFAULT)[address] [place] [address] 62444 Potassium [Moles/Vol] 5.7 mmol/L High 3.6-5.1 [facility] Comment on above: Performed By: #### 5 [id number], [id number], [id number], [id number], [id number], [id number] ####[facility] (DEFAULT)[address] [place] [address] 86277 Protein [Mass/Vol] 7.9 g/dL Normal 6.5-8.1 [facility] Comment on above: Performed By: #### 5 [id number], [id number], [id number], [id number], [id number], 7476325 ####[facility] (DEFAULT)[address] [place] [address] 68863 Sodium [Moles/Vol] 136.0 mmol/L Normal 136.0-144.0 [facility] Comment on above: Performed By: #### 5 [id number], [id number], [id number], [id number], 6577769, 2382393 ####[facility] (DEFAULT)[address] [place] [address] 72042 Urea nitrogen/Creatinine [Mass ratio] 61.0 mg/mg High 4.6-16.2 [facility] Comment on above: Performed By: #### 5 [id number], [id number], [id number], [id number], 3736526, 9300661 ####[facility] (DEFAULT)[address] [place] [address] 85083 ED Note-Nursingon 07-08-2022 ED Note-Nursing Dr. Choudhary placed IV in the Lt. hand after multiple attempts from multiple nurses. Normal [facility] ED Pre-Arrival Noteon 2021 ED Pre-Arrival Note Normal [facility] Lactic Acidon 07-08-2022 Lactic Acid 8.2 mg/dL Normal 4.5-19.8 [facility] Comment on above: Performed By: #### 2 [id number] ####[facility] (DEFAULT)[address] [place] [address] 45240 Magnesiumon 07-08-2022 Magnesium [Mass/Vol] 2.31 mg/dL Normal 1.80-2.50 [facility] Comment on above: Performed By: #### 5 [id number], [id number], [id number], [id number], [id number], [id number] ####[facility] (DEFAULT)[address] [place] [address] 00433 POCT Glucose Levelon 022 Glucose [Mass/Vol] 92 mg/dL Normal 74-118 [facility] Comment on above: Performed By: #### 4 [id number] ####[facility] (DEFAULT)[address] [place] [address] 35501 Glucose [Mass/Vol] 80 mg/dL Normal 74-118 [facility] Comment on above: Performed By: #### 4 [id number] ####[facility] (DEFAULT)[address] [place] [address] Glucose [Mass/Vol] 72 mg/dL Low 74-118 [facility] Comment on above: Performed By: #### 4 [id number] ####[facility] (DEFAULT)[address] [place] [address] SARS-CoV-2 (COVID-19) PCRon 07-08-2022 Employed in healthcare? No Invalid Interpretation Code [facility] Comment on above: Performed By: #### 6 [id number] ####[facility] (DEFAULT)[address] [place] [address] Group care resident? No Invalid Interpretation Code [facility] Comment on above: Performed By: #### 6 [id number] ####[facility] (DEFAULT)[address] [place] [address] In ICU? No Invalid Interpretation Code [facility] Comment on above: Performed By: #### 6 [id number] ####[facility] (DEFAULT)[address] [place] [address] status? Not Invalid Interpretation Code [facility] Comment on above: Performed By: #### 6 [id number] ####[facility] (DEFAULT)[address] [place] [address] SARS-CoV-2 (COVID-19) RNA MANSI+probe Ql (Unsp spec) Not detected Normal Not Detected [facility] Comment on above: Result Comment: Perf ormed by PCR methodology. Performed By: #### 6 [id number] ####[facility] (DEFAULT)[address] [place] [address] SARS-CoV-2 (COVID-19) RNA MANSI+probe Ql (Unsp spec) No Invalid Interpretation Code [facility] Comment on above: Performed By: #### 6 [id number] ####[facility] (DEFAULT)[address] [place] [address] Symptomatic as defined by CDC? No Invalid Interpretation Code [facility] Comment on above: Performed By: #### 6 [id number] ####[facility] (DEFAULT)[address] [place] [address] TnI HSon 07-08-2022 Troponin I High Sensitivity 11 pg/mL Normal <=20 [facility] Comment on above: Result Comment: Male Baseline Delta 1Hr (Note pg/mL=ng/L) <20pg/mL 50-60% >20pg/mL 20%Female Baseline Delta 1Hr <15pg/mL 50-60% >15pg/mL 20%Other Baseline Delta 1Hr <18ng/mL 50-60% >18ng/mL 20%([employer] Guidelines May 2018) Performed By: #### 5 [id number], [id number], [id number], [id number], [id number], [id number] ####[facility] (DEFAULT)[address] [place] [address] UA Uoxpi0vk 07-08-2022 UA Amorph. [facility] Comment on above: Order Comment: Urina lysis Microscopic order added on by [employer] Expert Rules system. Performed By: #### 1 [id number], [id number], [id number] ####[facility] (DEFAULT)[address] [place] [address] UA Bacteria 3+ [facility] Comment on above: Order Comment: Urina lysis Microscopic order added on by [employer] Rules system. Performed By: #### 1 [id number], [id number], [id number] ####[facility] (DEFAULT)[address] [place] [address] UA RBC 0-2 [facility] Comment on above: Order Comment: Urina lysis Microscopic order added on by [employer] Rules system. Performed By: #### 1 [id number], [id number], [id number] ####[facility] (DEFAULT)[address] [place] [address] UA Squam Epi Few [facility] Comment on above: Order Comment: Urina lysis Microscopic order added on by Dis[employer] Expert Rules system. Performed By: #### 1 [id number], [id number], [id number] ####[facility] (DEFAULT)[address] [place] [address] 88409 UA WBC 10-15 Normal [facility] Comment on above: Order Comment: Urina lysis Microscopic order added on by [employer] Rules system. Performed By: #### 1 [id number], [id number], [id number] ####[facility] (DEFAULT)[address] [place] [address] 84490 UA w Culture if Ind Standard on 07-08-2022 Breakpoint UA [facility] Comment on above: Performed By: #### 1 [id number], [id number], [id number] ####[facility] (DEFAULT)[address] [place] [address] Color (U) Yellow [facility] Comment on above: Performed By: #### 1 [id number], [id number], [id number] ####[facility] (DEFAULT)[address] [place] [address] Culture? Indicated Invalid Interpretation Code [facility] Comment on above: Result Comment: Resu lt created by rule GL_MAGR_ADD_UA_CULT Result created by rule GL_MAGR_ADD_UA_CULT Result created by rule GL_MAGR_ADD_UA_CULT1 Result created by rule GL_MAGR_ADD_UA_CULT Performed By: #### 1 [id number], [id number], [id number] ####[facility] (DEFAULT)[address] [place] [address] 75768 Glucose (U) [Mass/Vol] Negative [facility] Comment on above: Performed By: #### 1 [id number], [id number], [id number] ####[facility] (DEFAULT)[address] [place] [address] 74669 Ketones Ql (U) TRACE [facility] Comment on above: Performed By: #### 1 [id number], [id number], [id number] ####[facility] (DEFAULT)[address] [place] [address] 17669 Micro? Indicated Normal [facility] Comment on above: Result Comment: Resu lt created by rule GL_MAGR_ADD_UA_MICRO Performed By: #### 1 [id number], [id number], [id number] ####[facility] (DEFAULT)[address] [place] [address] 55414 UA Bilirubin Negative Normal [facility] Comment on above: Performed By: #### 1 [id number], [id number], [id number] ####[facility] (DEFAULT)[address] [place] [address] 16759 UA Blood Negative Normal NEGATIVE [facility] Comment on above: Performed By: #### 1 [id number], [id number], [id number] ####[facility] (DEFAULT)[address] [place] [address] 75265 UA Clarity CLEAR Normal CLEAR [facility] Comment on above: Performed By: #### 1 [id number], [id number], [id number] ####[facility] (DEFAULT)[address] [place] [address] 07709 UA Leuk Est SMALL Abnormal NEGATIVE [facility] Comment on above: Performed By: #### 1 [id number], [id number], [id number] ####[facility] (DEFAULT)[address] [place] [address] 97091 UA Nitrite Positive Abnormal NEGATIVE [facility] Comment on above: Performed By: #### 1 [id number], [id number], [id number] ####[facility] (DEFAULT)[address] [place] [address] 55590 UA pH 6.0 Normal 5-8 [facility] Comment on above: Performed By: #### 1 [id number], [id number], [id number] ####[facility] (DEFAULT)[address] [place] [address] 91523 UA Protein TRACE Abnormal NEGATIVE [facility] Comment on above: Performed By: #### 1 [id number], [id number], [id number] ####[facility] (DEFAULT)[address] [place] [address] 14135 UA Spec Grav 1.015 Normal 1.001-1.035 [facility] Comment on above: Performed By: #### 1 [id number], [id number], [id number] ####[facility] (DEFAULT)[address] [place] [address] UA Urobilinogen 0.2 mg/dL Normal 0.2-1.0 [facility] Comment on above: Performed By: #### 1 [id number], [id number], [id number] ####[facility] (DEFAULT)[address] [place] [address] Urine Source Clean Catch [facility] Comment on above: Performed By: #### 1 [id number], [id number], [id number] ####[facility] (DEFAULT)[address] [place] [address] 73654 XR Chest 2 Viewson 2 XR Chest 2 Views [facility] Progress Note - Nurseon 06-06 Progress Note - Nurse [facility] Coding Summaryon 06-11-2022 Coding Summary [facility] Provider Orderson 06-06-2022 Provider Orders [id number]#[id number] [facility] - MRI Report [id number] 05 [id number]#[id number] [facility] MRI Spine Lumbar w/o Contras ton 06-04-2022 MRI Spine Lumbar w/o Contrast [facility] Coding Summaryon 05-07-2022 Coding Summary [facility] Cult,Bloodon 09-13-2019 Cult,Blood Specimen Description .BLOOD Special Requests LT HAND 17ML Culture NO GROWTH 6 DAYS Report Status FINAL 09/13/2019 [facility] Comment on above: Performed By: #### C DP, LACTIC, CRP, CMPX, BH #### [facility] [employer] [address] [place] [address] [employer] Operator: Sony Aguilar MD Cult,Blood Specimen Description .BLOOD Special Requests RT HAND 15ML Culture NO GROWTH 6 DAYS Report Status FINAL 09/13/2019 [facility] Comment on above: Performed By: #### C DP, LACTIC, CRP, CMPX, BH #### [facility] [place], [place] [id number] [employer]: Sony Aguilar MD Cult,Tissueon 09-11-2019 Cult,Tissue Specimen Description .TISSUE LEFT .GROIN Special Requests NOT REPORTED Direct Exam NO NEUTROPHILS SEEN MIXED BACTERIAL MORPHOTYPES SEEN ON GRAM STAIN. Culture NORMAL TAWNYA MIXED ANAEROBIC TAWNYA Report Status FINAL 09/11/2019 [facility] Comment on above: Performed By: #### C DP, LACTIC, CRP, CMPX, BH #### [facility] [place], [place] [id number] [employer]: Sony Aguilar MD Cult,Aerobe/Anaerobeon 09-10 Cult,Aerobe/Anaerobe Specimen Descriptio n .GROIN SWAB LEFT Special Requests NOT REPORTED Direct Exam RARE NEUTROPHILS MIXED BACTERIAL MORPHOTYPES SEEN ON GRAM STAIN. Culture NORMAL SKIN TAWNYA MIXED ANAEROBIC TAWNYA Report Status FINAL 09/10/2019 [facility] Comment on above: Performed By: #### C DP, LACTIC, CRP, CMPX, BH #### [facility] [address] [place] [address] [id number] [employer]: Sony Aguilar MD POC Glucose Fingerstickon Glucose [Mass/Vol] 238 mg/dL High 75 - 110 mg/dL [place] Interpretation and review of laboratory results Abnormal [place] Glucose [Mass/Vol] 125 mg/dL High 75 - 110 mg/dL [place] Interpretation and review of laboratory results Abnormal [place] Basic Metab w/rfx MGon 09-09 (cont.) [facility] Comment on above: Result Comment: Aver age GFR for 60-69 years old: 85 mL/min/1.73sq m Chronic Kidney Disease: <60 mL/min/1.73sq m Kidney failure: <15 mL/min/1.73sq m eGFR calculated using average adult body mass. Additional eGFR calculator available at: http://www.[employer]iningCircle.com/multiple_crcl_2012.htm Performed By: #### C DP, LACTIC, CRP, CMPX, #### [address] [address] [employer]: Sony Aguilar MD Anion gap [Moles/Vol] 12 mmol/L Normal 9-17 [facility] Comment on above: Performed By: #### C DP, LACTIC, CRP, CMPX, #### [address] [address] [employer]: Sony Aguilar MD Calcium [Mass/Vol] 7.9 mg/dL Low 8.6-10.4 [facility] Comment on above: Performed By: #### C DP, LACTIC, CRP, CMPX, #### [address] [address] [employer]: Sony Aguilar MD Chloride [Moles/Vol] 101 mmol/L Normal 98-107 [facility] Comment on above: Performed By: #### C DP, LACTIC, CRP, CMPX, #### [address] [address] [employer]: Sony Aguilar MD CO2 [Moles/Vol] 24 mmol/L Normal 20-31 [facility] Comment on above: Performed By: #### C DP, LACTIC, CRP, CMPX, #### [address] [address] [employer]: Sony Aguilar MD Creatinine [Mass/Vol] 0.84 mg/dL Normal 0.70-1.20 [facility] Comment on above: Performed By: #### C DP, LACTIC, CRP, CMPX, #### [facility] [address] [place] [address] [employer]: Sony Aguilar MD GFR, Amer >60 Normal >60 [facility] Comment on above: Performed By: #### C DP, LACTIC, CRP, CMPX, #### [facility] [address] [place] [address] [employer]: Sony Aguilar MD GFR,non Amer >60 Normal >60 [facility] Comment on above: Performed By: #### C DP, LACTIC, CRP, CMPX, #### [facility] [address] [place] [address] [employer]: Sony Aguilar MD Glucose [Mass/Vol] 181 mg/dL High 70-99 [facility] Comment on above: Performed By: #### C DP, LACTIC, CRP, CMPX, #### [facility] [address] [place] [address] [employer]: Sony Aguilar MD Potassium [Moles/Vol] 4.1 mmol/L Normal 3.7-5.3 [facility] Comment on above: Performed By: #### C DP, LACTIC, CRP, CMPX, #### [facility] [address] [place] [address] [employer]: Sony Aguilar MD Sodium [Moles/Vol] 137 mmol/L Normal 135-144 [facility] Comment on above: Performed By: #### C DP, LACTIC, CRP, CMPX, #### [facility] [address] [place] [address] [employer]: Sony Aguilar MD Urea nitrogen [Mass/Vol] 22 mg/dL Normal 8-23 [facility] Comment on above: Performed By: #### C DP, LACTIC, CRP, CMPX, #### [facility] [address] [place] [address] [employer]: Sony Aguilar MD BUN/CRE Ratio NOT REPORTED Normal 9-20 [facility] Comment on above: Performed By: #### C DP, LACTIC, CRP, CMPX, #### [facility] [address] [place] [address] [employer]: Sony Aguilar MD Staging: NOT REPORTED Normal [facility] Comment on above: Performed By: #### C DP, LACTIC, CRP, CMPX, #### [facility] [address] [place], [place] [id number] [employer]: Sony Aguilar MD Basic Metabolic Panel w/ Ref eduard to MGon 09-09-2019 Anion gap [Moles/Vol] 12 mmol/L 9 - 17 mmol/L [place] Bun/Cre Ratio NOT REPORTED [place], [place] Calcium [Mass/Vol] 7.9 mg/dL Low 8.6 - 10. 4 mg/dL [place] Chloride [Moles/Vol] 101 mmol/L 98 - 10 7 mmol/L [place] CO2 [Moles/Vol] 24 mmol/L 20 - 31 mmol/L [place] Creatinine [Mass/Vol] 0.84 mg/dL 0.7 - 1.2 mg/dL [place] GFR >60 >60 mL/min [place] GFR Non- >60 >60 mL/min [place] GFR/1.73 sq M predicted among non-blacks MDRD (S/P/Bld) [Vol rate/Area] [place] Comment on above: Average GFR for 60-6 9 years old: 85 mL/min/1.73sq m Chronic Kidney Disease: <60 mL/min/1.73sq m Kidney failure: <15 mL/min/1.73sq m eGFR calculated using average adult body mass. Additional eGFR calculator available at: http://www.DiningCircle.[employer]/multiple_crcl_2012.htm GFR/1.73 sq M predicted among non-blacks MDRD (S/P/Bld) [Vol rate/Area] NOT REPORTED [place] Glucose [Mass/Vol] 181 mg/dL High 70 - 99 mg/dL [place] Interpretation and review of laboratory results Abnormal [place] Potassium [Moles/Vol] 4.1 mmol/L 3.7 - 5.3 mmol/L [place] Sodium [Moles/Vol] 137 mmol/L 135 - 144 mmol/L [place] Urea nitrogen [Mass/Vol] 22 mg/dL 8 - 23 mg/dL [place] CBC auto differentialon 12-0 Basophils (Bld) [#/Vol] 0.04 10*3/uL [place] Basophils/100 WBC (Bld) 1 % 0 - 2 % [place] Differential Type NOT REPORTED [place] Eosinophils (Bld) [#/Vol] 0.29 10*3/uL [place] Eosinophils/100 WBC (Bld) 3 % 1 - 4 % [place] Erythrocyte distribution width (RBC) [Ratio] 12.1 % 11.8 - 14.4 % [place] Hematocrit (Bld) [Volume fraction] 34.8 % Low 40.7 - 50.3 % [place] Hemoglobin (Bld) [Mass/Vol] 11.7 g/dL Low 13 - 17 g/dL [place] Immature granulocytes (Bld) [#/Vol] 1 % High 0 [place] Immature granulocytes (Bld) [#/Vol] 0.05 10*3/uL [place] Interpretation and review of laboratory results Abnormal [place] Lymphocytes (Bld) [#/Vol] 1.49 10*3/uL [place] Lymphocytes/100 WBC (Bld) 17 % Low 24 - 43 % [place] MCH (RBC) [Entitic mass] 29.6 pg 25.2 - 33.5 pg [place] MCHC (RBC) [Mass/Vol] 33.6 g/dL 28.4 - 34.8 g/dL [place] MCV (RBC) [Entitic vol] 88.1 fL 82.6 - 102.9 fL [place] Monocytes (Bld) [#/Vol] 0.81 10*3/uL [place] Monocytes/100 WBC (Bld) 9 % 3 - 12 % [place] Platelet mean volume (Bld) [Entitic vol] 11.7 fL 8.1 - 13.5 fL [place] Platelets (Bld) [#/Vol] NOT REPORTED [place] Platelets (Bld) [#/Vol] 248 10*3/uL [place] RBC (Bld) [#/Vol] 3.95 10*6/uL Low 4.21 - 5.7 7 m/uL [place] RBC morphology finding Nom (Bld) NOT REPORTED [place] Segmented neutrophils/100 WBC (Bld) 69 % High 36 - 65 % [place] Segs Absolute 5.94 [place] WBC (Bld) [#/Vol] 0.0 10*3/uL 0.0 per 10 0 WBC [place] WBC (Bld) [#/Vol] 8.6 10*3/uL [place] WBC Morphology NOT REPORTED [place] CBC with Diffon 09-09-2019 Abs. Basophil 0.04 k/uL Normal 0.00-0.20 [facility] Comment on above: Performed By: #### C DP, LACTIC, CRP, CMPX, #### [place] [id number] [employer]: Sony Aguilar MD Abs.Imm.Granulocyte 0.05 k/uL Normal 0.00-0.30 [facility] Comment on above: Performed By: #### C DP, LACTIC, CRP, CMPX, #### [facility] [address] [place] [address] [employer]: Sony Aguilar MD Abs.Neutrophil (Seg) 5.94 k/uL Normal 1.50-8.10 [facility] Comment on above: Performed By: #### C DP, LACTIC, CRP, CMPX, #### [address] [address] [employer]: Sony Aguilar MD Basophils/100 WBC (Bld) 1 % Normal 0-2 [facility] Comment on above: Performed By: #### C DP, LACTIC, CRP, CMPX, #### [address] [address] [employer]: Sony Aguilar MD Eosinophils (Bld) [#/Vol] 0.29 10*3/uL Normal 0.00-0.44 [facility] Comment on above: Performed By: #### C DP, LACTIC, CRP, CMPX, #### [place] [address] [employer]: Sony Aguilar MD Eosinophils/100 WBC (Bld) 3 % Normal 1-4 [facility] Comment on above: Performed By: #### C DP, LACTIC, CRP, CMPX, #### [place] [address] [employer]: Sony Aguilar MD Erythrocyte distribution width (RBC) [Ratio] 12.1 % Normal 11.8-14.4 [facility] Comment on above: Performed By: #### C DP, LACTIC, CRP, CMPX, #### [place] [address] [employer]: Sony Aguilar MD Hematocrit (Bld) [Volume fraction] 34.8 % Low 40.7-50.3 [facility] Comment on above: Performed By: #### C DP, LACTIC, CRP, CMPX, #### [address] [address] [employer]: Sony Aguilar MD Hemoglobin (Bld) [Mass/Vol] 11.7 g/dL Low 13.0-17.0 [facility] Comment on above: Performed By: #### C DP, LACTIC, CRP, CMPX, #### [address] [address] [employer]: Sony Aguilar MD Immature granulocytes (Bld) [#/Vol] 1 % High 0 [facility] Comment on above: Performed By: #### C DP, LACTIC, CRP, CMPX, #### [address] [address] [employer]: Sony Aguilar MD Lymphocytes (Bld) [#/Vol] 1.49 10*3/uL Normal 1.10-3.70 [facility] Comment on above: Performed By: #### C DP, LACTIC, CRP, CMPX, #### [address] [address] [employer]: Sony Aguilar MD Lymphocytes/100 WBC (Bld) 17 % Low 24-43 [facility] Comment on above: Performed By: #### C DP, LACTIC, CRP, CMPX, #### [address] [address] [employer]: Sony Aguilar MD MCH (RBC) [Entitic mass] 29.6 pg Normal 25.2-33.5 [facility] Comment on above: Performed By: #### C DP, LACTIC, CRP, CMPX, #### [address] [address] [employer]: Sony Aguilar MD MCHC (RBC) [Mass/Vol] 33.6 g/dL Normal 28.4-34.8 [facility] Comment on above: Performed By: #### C DP, LACTIC, CRP, CMPX, #### [address] [address] [employer]: Sony Aguilar MD MCV (RBC) [Entitic vol] 88.1 fL Normal 82.6-102.9 [facility] Comment on above: Performed By: #### C DP, LACTIC, CRP, CMPX, #### [address] [address] [employer]: Sony Aguilar MD Monocytes (Bld) [#/Vol] 0.81 10*3/uL Normal 0.10-1.20 [facility] Comment on above: Performed By: #### C DP, LACTIC, CRP, CMPX, #### [address] [address] [employer]: Sony Aguilar MD Monocytes/100 WBC (Bld) 9 % Normal 3-12 [facility] Comment on above: Performed By: #### C DP, LACTIC, CRP, CMPX, #### [address] [address] [employer]: Sony Aguilar MD Neutrophil (Seg) 69 % High 36-65 [facility] Comment on above: Performed By: #### C DP, LACTIC, CRP, CMPX, #### [address] [address] [employer]: Sony Aguilar MD NRBC Automated 0.0 per 100 WBC Normal 0.0 [facility] Comment on above: Performed By: #### C DP, LACTIC, CRP, CMPX, #### [address] [address] [employer]: Sony Aguilar MD Platelet mean volume (Bld) [Entitic vol] 11.7 fL Normal 8.1-13.5 [facility] Comment on above: Performed By: #### C DP, LACTIC, CRP, CMPX, #### [address] [address] [employer]: Sony Aguilar MD Platelets (Bld) [#/Vol] 248 10*3/uL Normal 138-453 [facility] Comment on above: Performed By: #### C DP, LACTIC, CRP, CMPX, #### [address] [address] [employer]: Sony Aguilar MD RBC (Bld) [#/Vol] 3.95 10*6/uL Low 4.21-5.77 [facility] Comment on above: Performed By: #### C DP, LACTIC, CRP, CMPX, #### [address] [address] [employer]: Sony Aguilar MD WBC (Bld) [#/Vol] 8.6 10*3/uL Normal 3.5-11.3 [facility] Comment on above: Performed By: #### C DP, LACTIC, CRP, CMPX, #### [address] [address] [employer]: Sony Aguilar MD Auto Diff Performed NOT REPORTED Normal [facility] Comment on above: Performed By: #### C DP, LACTIC, CRP, CMPX, #### [address] [address] [employer]: Sony Aguilar MD Platelets (Bld) [#/Vol] NOT REPORTED Normal [facility] Comment on above: Performed By: #### C DP, LACTIC, CRP, CMPX, #### [address] [address] [employer]: Sony Aguilar MD RBC morphology finding Nom (Bld) NOT REPORTED Normal [facility] Comment on above: Performed By: #### C DP, LACTIC, CRP, CMPX, #### [address] [address] [employer]: Sony Aguilar MD WBC Morphology NOT REPORTED Normal [facility] Comment on above: Performed By: #### C DP, LACTIC, CRP, CMPX, #### [facility] [place], [place] [id number] [employer]: Sony Aguilar MD POC Glucose Fingerstickon Glucose [Mass/Vol] 212 mg/dL High 75 - 110 mg/dL [place] Interpretation and review of laboratory results Abnormal [place] Glucose [Mass/Vol] 235 mg/dL High 75 - 110 mg/dL [place] Interpretation and review of laboratory results Abnormal [place] Glucose [Mass/Vol] 207 mg/dL High 75 - 110 mg/dL [place] Interpretation and review of laboratory results Abnormal [place] Glucose [Mass/Vol] 202 mg/dL High 75 - 110 mg/dL [place] Interpretation and review of laboratory results Abnormal [place] Glucose [Mass/Vol] 214 mg/dL High 75 - 110 mg/dL [place] Interpretation and review of laboratory results Abnormal [place] Basic Metab w/rfx MGon 09-08 (cont.) Normal [facility] Comment on above: Result Comment: Aver age GFR for 60-69 years old: 85 mL/min/1.73sq m Chronic Kidney Disease: <60 mL/min/1.73sq m Kidney failure: <15 mL/min/1.73sq m eGFR calculated using average adult body mass. Additional eGFR calculator available at: http://www.[employer].Risk Management Solution/multiple_crcl_2012.htm Performed By: #### C DP, LACTIC, CRP, CMPX, #### [employer] [address] [place] [address] [employer]: Sony Aguilar MD Anion gap [Moles/Vol] 13 mmol/L Normal 9-17 [facility] Comment on above: Performed By: #### C DP, LACTIC, CRP, CMPX, BH #### [facility] [address] [place] [address] [employer]: Sony Aguilar MD Calcium [Mass/Vol] 7.4 mg/dL Low 8.6-10.4 [facility] Comment on above: Performed By: #### C DP, LACTIC, CRP, CMPX, #### [facility] [address] [place] [address] [employer]: Sony Aguilar MD Chloride [Moles/Vol] 105 mmol/L Normal 98-107 [facility] Comment on above: Performed By: #### C DP, LACTIC, CRP, CMPX, #### [facility] [address] [place] [address] [employer]: Sony Aguilar MD CO2 [Moles/Vol] 19 mmol/L Low 20-31 [facility] Comment on above: Performed By: #### C DP, LACTIC, CRP, CMPX, #### [facility] [address] [place] [address] [employer]: Sony Aguilar MD Creatinine [Mass/Vol] 0.99 mg/dL Normal 0.70-1.20 [facility] Comment on above: Performed By: #### C DP, LACTIC, CRP, CMPX, #### [facility] [address] [place] [address] [employer]: Sony Aguilar MD GFR, Amer >60 Normal >60 [facility] Comment on above: Performed By: #### C DP, LACTIC, CRP, CMPX, #### [facility] [address] [place] [address] [employer]: Sony Aguilar MD GFR,non Amer >60 Normal >60 [facility] Comment on above: Performed By: #### C DP, LACTIC, CRP, CMPX, #### [facility] [address] [place] [address] [employer]: Sony Aguilar MD Glucose [Mass/Vol] 111 mg/dL High 70-99 [facility] Comment on above: Performed By: #### C DP, LACTIC, CRP, CMPX, #### [address] [address] [employer]: Sony Aguilar MD Potassium [Moles/Vol] 3.9 mmol/L Normal 3.7-5.3 [facility] Comment on above: Performed By: #### C DP, LACTIC, CRP, CMPX, #### [address] [address] [employer]: Sony Aguilar MD Sodium [Moles/Vol] 137 mmol/L Normal 135-144 [facility] Comment on above: Performed By: #### C DP, LACTIC, CRP, CMPX, #### [address] [address] [employer]: Sony Aguilar MD Urea nitrogen [Mass/Vol] 29 mg/dL High 8-23 [facility] Comment on above: Performed By: #### C DP, LACTIC, CRP, CMPX, #### [address] [address] [employer]: Sony Aguilar MD BUN/CRE Ratio NOT REPORTED Normal 9-20 [facility] Comment on above: Performed By: #### C DP, LACTIC, CRP, CMPX, #### [address] [address] [employer]: Sony Aguilar MD Staging: NOT REPORTED Normal [facility] Comment on above: Performed By: #### C DP, LACTIC, CRP, CMPX, #### [address] [address] [employer]: Sony Aguilar MD Basic Metabolic Panel w/ Ref eduard to MGon 09-08-2019 Anion gap [Moles/Vol] 13 mmol/L 9 - 17 mmol/L [place] Bun/Cre Ratio NOT REPORTED [place] Calcium [Mass/Vol] 7.4 mg/dL Low 8.6 - 10. 4 mg/dL [place] Chloride [Moles/Vol] 105 mmol/L 98 - 10 7 mmol/L [place] CO2 [Moles/Vol] 19 mmol/L Low 20 - 31 mmol/L [place] Creatinine [Mass/Vol] 0.99 mg/dL 0.7 - 1.2 mg/dL [place] GFR >60 >60 mL/min [place] GFR Non- >60 >60 mL/min [place] GFR/1.73 sq M predicted among non-blacks MDRD (S/P/Bld) [Vol rate/Area] [place] Comment on above: Average GFR for 60-6 9 years old: 85 mL/min/1.73sq m Chronic Kidney Disease: <60 mL/min/1.73sq m Kidney failure: <15 mL/min/1.73sq m eGFR calculated using average adult body mass. Additional eGFR calculator available at: http://www.Comfort Line/multiple_crcl_2012.htm GFR/1.73 sq M predicted among non-blacks MDRD (S/P/Bld) [Vol rate/Area] NOT REPORTED [place] Glucose [Mass/Vol] 111 mg/dL High 70 - 99 mg/dL [place] Interpretation and review of laboratory results Abnormal [place] Potassium [Moles/Vol] 3.9 mmol/L 3.7 - 5.3 mmol/L [place] Sodium [Moles/Vol] 137 mmol/L 135 - 144 mmol/L [place] Urea nitrogen [Mass/Vol] 29 mg/dL High 8 - 23 mg/dL [place] CBC auto differentialon 12-0 Basophils (Bld) [#/Vol] 10*3/uL [place] Basophils/100 WBC (Bld) 0 % 0 - 2 % [place] Differential Type NOT REPORTED [place] Eosinophils (Bld) [#/Vol] 0.15 10*3/uL [place] Eosinophils/100 WBC (Bld) 2 % 1 - 4 % [place] Erythrocyte distribution width (RBC) [Ratio] 12.0 % 11.8 - 14.4 % [place] Hematocrit (Bld) [Volume fraction] 34.8 % Low 40.7 - 50.3 % [place] Hemoglobin (Bld) [Mass/Vol] 11.0 g/dL Low 13 - 17 g/dL [place] Immature granulocytes (Bld) [#/Vol] 1 % High 0 [place] Immature granulocytes (Bld) [#/Vol] 0.05 10*3/uL [place] Interpretation and review of laboratory results Abnormal [place] Lymphocytes (Bld) [#/Vol] 1.79 10*3/uL [place] Lymphocytes/100 WBC (Bld) 19 % Low 24 - 43 % [place] MCH (RBC) [Entitic mass] 29.4 pg 25.2 - 33.5 pg [place] MCHC (RBC) [Mass/Vol] 31.6 g/dL 28.4 - 34.8 g/dL [place] MCV (RBC) [Entitic vol] 93.0 fL 82.6 - 102.9 fL [place] Monocytes (Bld) [#/Vol] 0.82 10*3/uL [place] Monocytes/100 WBC (Bld) 9 % 3 - 12 % [place] Platelet mean volume (Bld) [Entitic vol] 12.0 fL 8.1 - 13.5 fL [place] Platelets (Bld) [#/Vol] NOT REPORTED [place] Platelets (Bld) [#/Vol] 210 10*3/uL [place] RBC (Bld) [#/Vol] 3.74 10*6/uL Low 4.21 - 5.7 7 m/uL [place] RBC morphology finding Nom (Bld) NOT REPORTED [place] Segmented neutrophils/100 WBC (Bld) 71 % High 36 - 65 % [place] Segs Absolute 6.80 [place] WBC (Bld) [#/Vol] 9.6 10*3/uL [place] WBC (Bld) [#/Vol] 0.0 10*3/uL 0.0 per 10 0 WBC [place] WBC Morphology NOT REPORTED [place] CBC with Diffon 09-08-2019 Abs. Basophil <0.03 Normal 0.00-0.20 [facility] Comment on above: Performed By: #### C DP, LACTIC, CRP, CMPX, #### [address] [address] [employer]: Sony Aguilar MD Abs.Imm.Granulocyte 0.05 k/uL Normal 0.00-0.30 [facility] Comment on above: Performed By: #### C DP, LACTIC, CRP, CMPX, #### [address] [address] [employer]: Sony Aguilar MD Abs.Neutrophil (Seg) 6.80 k/uL Normal 1.50-8.10 [facility] Comment on above: Performed By: #### C DP, LACTIC, CRP, CMPX, #### [address] [address] [employer]: Sony Aguilar MD Basophils/100 WBC (Bld) 0 % Normal 0-2 [facility] Comment on above: Performed By: #### C DP, LACTIC, CRP, CMPX, #### [address] [address] [employer]: Sony Aguilar MD Eosinophils (Bld) [#/Vol] 0.15 10*3/uL Normal 0.00-0.44 [facility] Comment on above: Performed By: #### C DP, LACTIC, CRP, CMPX, #### [address] [address] [employer]: Sony Aguilar MD Eosinophils/100 WBC (Bld) 2 % Normal 1-4 [facility] Comment on above: Performed By: #### C DP, LACTIC, CRP, CMPX, #### [address] [address] [employer]: Sony Aguilar MD Erythrocyte distribution width (RBC) [Ratio] 12.0 % Normal 11.8-14.4 [facility] Comment on above: Performed By: #### C DP, LACTIC, CRP, CMPX, #### [address] [address] [employer]: Sony Aguilar MD Hematocrit (Bld) [Volume fraction] 34.8 % Low 40.7-50.3 [facility] Comment on above: Performed By: #### C DP, LACTIC, CRP, CMPX, #### [address] [address] [employer]: Sony Aguilar MD Hemoglobin (Bld) [Mass/Vol] 11.0 g/dL Low 13.0-17.0 [facility] Comment on above: Performed By: #### C DP, LACTIC, CRP, CMPX, #### [address] [address] [employer]: Sony Aguilar MD Immature granulocytes (Bld) [#/Vol] 1 % High 0 [facility] Comment on above: Performed By: #### C DP, LACTIC, CRP, CMPX, #### [address] [address] [employer]: Sony Aguilar MD Lymphocytes (Bld) [#/Vol] 1.79 10*3/uL Normal 1.10-3.70 [facility] Comment on above: Performed By: #### C DP, LACTIC, CRP, CMPX, #### [address] [address] [employer]: Sony Aguilar MD Lymphocytes/100 WBC (Bld) 19 % Low 24-43 [facility] Comment on above: Performed By: #### C DP, LACTIC, CRP, CMPX, #### [place] [address] [employer]: Sony Aguilar MD MCH (RBC) [Entitic mass] 29.4 pg Normal 25.2-33.5 [facility] Comment on above: Performed By: #### C DP, LACTIC, CRP, CMPX, #### [place] [address] [employer]: Sony Aguilar MD MCHC (RBC) [Mass/Vol] 31.6 g/dL Normal 28.4-34.8 [facility] Comment on above: Performed By: #### C DP, LACTIC, CRP, CMPX, #### [place] [address] [employer]: Sony Aguilar MD MCV (RBC) [Entitic vol] 93.0 fL Normal 82.6-102.9 [facility] Comment on above: Performed By: #### C DP, LACTIC, CRP, CMPX, #### [address] [address] [employer]: Sony Aguilar MD Monocytes (Bld) [#/Vol] 0.82 10*3/uL Normal 0.10-1.20 [facility] Comment on above: Performed By: #### C DP, LACTIC, CRP, CMPX, #### [address] [address] [employer]: Sony Aguilar MD Monocytes/100 WBC (Bld) 9 % Normal 3-12 [facility] Comment on above: Performed By: #### C DP, LACTIC, CRP, CMPX, #### [address] [address] [employer]: Sony Aguilar MD Neutrophil (Seg) 71 % High 36-65 [facility] Comment on above: Performed By: #### C DP, LACTIC, CRP, CMPX, #### [address] [address] [employer]: Sony Aguilar MD NRBC Automated 0.0 per 100 WBC Normal 0.0 [facility] Comment on above: Performed By: #### C DP, LACTIC, CRP, CMPX, #### [address] [address] [employer]: Sony Aguilar MD Platelet mean volume (Bld) [Entitic vol] 12.0 fL Normal 8.1-13.5 [facility] Comment on above: Performed By: #### C DP, LACTIC, CRP, CMPX, #### [address] [address] [employer]: Sony Aguilar MD Platelets (Bld) [#/Vol] 210 10*3/uL Normal 138-453 [facility] Comment on above: Performed By: #### C DP, LACTIC, CRP, CMPX, #### [address] [address] [employer]: Sony Aguilar MD RBC (Bld) [#/Vol] 3.74 10*6/uL Low 4.21-5.77 [facility] Comment on above: Performed By: #### C DP, LACTIC, CRP, CMPX, #### [address] [address] [employer]: Sony Aguilar MD WBC (Bld) [#/Vol] 9.6 10*3/uL Normal 3.5-11.3 [facility] Comment on above: Performed By: #### C DP, LACTIC, CRP, CMPX, #### [address] [address] [employer]: Sony Aguilar MD Auto Diff Performed NOT REPORTED Normal [facility] Comment on above: Performed By: #### C DP, LACTIC, CRP, CMPX, #### [address] [address] [employer]: Sony Aguilar MD Platelets (Bld) [#/Vol] NOT REPORTED Normal [facility] Comment on above: Performed By: #### C DP, LACTIC, CRP, CMPX, #### [address] [address] [employer]: Sony Aguilar MD RBC morphology finding Nom (Bld) NOT REPORTED Normal [facility] Comment on above: Performed By: #### C DP, LACTIC, CRP, CMPX, #### [address] [address] [employer]: Sony Aguilar MD WBC Morphology NOT REPORTED Normal [facility] Comment on above: Performed By: #### C DP, LACTIC, CRP, CMPX, #### [address] [address] [employer]: Sony Aguilar MD Cult,Urineon 09-08-2019 Cult,Urine Specimen Description .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,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 Culture NO SIGNIFICANT GROWTH Report Status FINAL 09/08/2019 Normal [facility] Comment on above: Performed By: #### C DP, LACTIC, CRP, CMPX, #### [address] [address] [employer]: Sony Aguilar MD Hemoglobin A1Con 09-08-2019 HbA1c (Bld) [Mass fraction] 10.0 % High 4.0-6.0 [facility] Comment on above: Performed By: #### C DP, GLYHGB #### [facility] [address] [place], [place] [id number] [employer]: Sony Aguilar MD HbA1c (Bld) [Mass fraction] 240 mg/dL Normal [facility] Comment on above: Result Comment: The ADA and AACC recommend providing the estimated average glucose result to permit better patient understanding of their HBA1c result. Performed By: #### C DP, GLYHGB #### [facility] [address] [place], [place] [id number] [employer]: Sony Aguilar MD Glucose [Mass/Vol] 240 mg/dL [place] Comment on above: The ADA and AACC rec ommend providing the estimated average glucose result to permit better patient understanding of their HBA1c result. HbA1c (Bld) [Mass fraction] 10.0 % High 4 - 6 % [place] Interpretation and review of laboratory results Abnormal [place] POC Glucose Fingerstickon Glucose [Mass/Vol] 194 mg/dL High 75 - 110 mg/dL [place] Interpretation and review of laboratory results Abnormal [place] Glucose [Mass/Vol] 238 mg/dL High 75 - 110 mg/dL [place] Interpretation and review of laboratory results Abnormal [place] Glucose [Mass/Vol] 211 mg/dL High 75 - 110 mg/dL [place] Interpretation and review of laboratory results Abnormal [place] Glucose [Mass/Vol] 197 mg/dL High 75 - 110 mg/dL [place] Interpretation and review of laboratory results Abnormal [place] Glucose [Mass/Vol] 179 mg/dL High 75 - 110 mg/dL [place] Interpretation and review of laboratory results Abnormal [place] Glucose [Mass/Vol] 131 mg/dL High 75 - 110 mg/dL [place] Interpretation and review of laboratory results Abnormal [place] Glucose [Mass/Vol] 126 mg/dL High 75 - 110 mg/dL [place] Interpretation and review of laboratory results Abnormal [place] Glucose [Mass/Vol] 125 mg/dL High 75 - 110 mg/dL [place] Interpretation and review of laboratory results Abnormal [place] Glucose [Mass/Vol] 114 mg/dL High 75 - 110 mg/dL [place] Interpretation and review of laboratory results Abnormal [place] Glucose [Mass/Vol] 110 mg/dL 75 - 110 mg/dL [place] Glucose [Mass/Vol] 107 mg/dL 75 - 110 mg/dL [place] Glucose [Mass/Vol] 110 mg/dL 75 - 110 mg/dL [place] Glucose [Mass/Vol] 126 mg/dL High 75 - 110 mg/dL [place] Interpretation and review of laboratory results Abnormal [place] Urine Cultureon 09-08-2019 Culture NO SIGNIFICANT GROWTH [place] Special Requests NOT REPORTED [place] Specimen Description .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 Additional eGFR calculator available at: http://www.[employer].Risk Management Solution/multiple_crcl_2012.htm Performed By: #### B MPX #### [facility] [place], [place] [id number] [employer]: Sony Aguilar MD Anion gap [Moles/Vol] 12 mmol/L Normal 9-17 [facility] Comment on above: Performed By: #### B MPX #### [facility] [address] [place] [address] [employer]: Sony Aguilar MD Calcium [Mass/Vol] 7.5 mg/dL Low 8.6-10.4 [facility] Comment on above: Performed By: #### B MPX #### [address] [address] [employer]: Sony Aguilar MD Chloride [Moles/Vol] 99 mmol/L Normal 98-107 [facility] Comment on above: Performed By: #### B MPX #### [address] [address] [employer]: Sony Aguilar MD CO2 [Moles/Vol] 21 mmol/L Normal 20-31 [facility] Comment on above: Performed By: #### B MPX #### [address] [address] [employer]: Sony Aguilar MD Creatinine [Mass/Vol] 1.12 mg/dL Normal 0.70-1.20 [facility] Comment on above: Performed By: #### B MPX #### [address] [address] [employer]: Sony Aguilar MD GFR, Amer >60 Normal >60 [facility] Comment on above: Performed By: #### B MPX #### [address] [address] [employer]: Sony Aguilar MD GFR,non Amer >60 Normal >60 [facility] Comment on above: Performed By: #### B MPX #### [address] [address] [employer]: Sony Aguilar MD Glucose [Mass/Vol] 225 mg/dL High 70-99 [facility] Comment on above: Performed By: #### B MPX #### [place] [id number] [place] [address] [employer]: Sony Aguilar MD Potassium [Moles/Vol] 4.4 mmol/L Normal 3.7-5.3 [facility] Comment on above: Performed By: #### B MPX #### [address] [address] [employer]: Sony Aguilar MD Sodium [Moles/Vol] 132 mmol/L Low 135-144 [facility] Comment on above: Performed By: #### B MPX #### [address] [address] [employer]: Sony Aguilar MD Urea nitrogen [Mass/Vol] 33 mg/dL High 8-23 [facility] Comment on above: Performed By: #### B MPX #### [address] [address] [employer]: Sony Aguilar MD BUN/CRE Ratio NOT REPORTED Normal - [facility] Comment on above: Performed By: #### B MPX #### [address] [address] [employer]: Sony Aguilar MD Staging: NOT REPORTED Normal [facility] Comment on above: Performed By: #### B MPX #### [address] [address] [employer]: Sony Aguilar MD Basic Metabolic Panel w/ Ref eduard to MGon 09-07-2019 Anion gap [Moles/Vol] 12 mmol/L 9 - 17 mmol/L [place] Bun/Cre Ratio NOT REPORTED [place] Calcium [Mass/Vol] 7.5 mg/dL Low 8.6 - 10. 4 mg/dL [place] Chloride [Moles/Vol] 99 mmol/L 98 - 10 7 mmol/L [place] CO2 [Moles/Vol] 21 mmol/L 20 - 31 mmol/L [place] Creatinine [Mass/Vol] 1.12 mg/dL 0.7 - 1.2 mg/dL [place] GFR >60 >60 mL/min [place] GFR Non- >60 >60 mL/min [place] GFR/1.73 sq M predicted among non-blacks MDRD (S/P/Bld) [Vol rate/Area] NOT REPORTED [place] GFR/1.73 sq M predicted among non-blacks MDRD (S/P/Bld) [Vol rate/Area] [place] Comment on above: Average GFR for 60-6 9 years old: 85 mL/min/1.73sq m Chronic Kidney Disease: <60 mL/min/1.73sq m Kidney failure: <15 mL/min/1.73sq m eGFR calculated using average adult body mass. Additional eGFR calculator available at: http://www.Comfort Line/multiple_crcl_2012.htm Glucose [Mass/Vol] 225 mg/dL High 70 - 99 mg/dL [place] Interpretation and review of laboratory results Abnormal [place] Potassium [Moles/Vol] 4.4 mmol/L 3.7 - 5.3 mmol/L [place] Sodium [Moles/Vol] 132 mmol/L Low 135 - 144 mmol/L [place] Urea nitrogen [Mass/Vol] 33 mg/dL High 8 - 23 mg/dL [place] Beta Hydroxybutyrateon 09-07 Beta Hydroxybutyrate 0.67 mmol/L High 0.02-0.27 [facility] Comment on above: Performed By: #### C DP, LACTIC, CRP, CMPX, BH #### [employer] [address] [place] [address] [employer]: Sony Aguilar MD C-Reactive Proteinon 019 CRP [Mass/Vol] 237.9 mg/L High 0.0-5.0 [facility] Comment on above: Performed By: #### C DP, LACTIC, CRP, CMPX, BH #### [facility] [address] [place] [address] [employer]: Sony Aguilar MD CBC auto differentialon 12-0 Basophils (Bld) [#/Vol] 10*3/uL [place] Basophils/100 WBC (Bld) 0 % 0 - 2 % [place] Differential Type NOT REPORTED [place] Eosinophils (Bld) [#/Vol] 0.05 10*3/uL [place] Eosinophils/100 WBC (Bld) 0 % Low 1 - 4 % [place] Erythrocyte distribution width (RBC) [Ratio] 12.0 % 11.8 - 14.4 % [place] Hematocrit (Bld) [Volume fraction] 34.4 % Low 40.7 - 50.3 % [place] Hemoglobin (Bld) [Mass/Vol] 11.6 g/dL Low 13 - 17 g/dL [place] Immature granulocytes (Bld) [#/Vol] 0 % 0 [place] Immature granulocytes (Bld) [#/Vol] 0.05 10*3/uL [place] Interpretation and review of laboratory results Abnormal [place] Lymphocytes (Bld) [#/Vol] 1.73 10*3/uL [place] Lymphocytes/100 WBC (Bld) 12 % Low 24 - 43 % [place] MCH (RBC) [Entitic mass] 29.3 pg 25.2 - 33.5 pg [place] MCHC (RBC) [Mass/Vol] 33.7 g/dL 28.4 - 34.8 g/dL [place] MCV (RBC) [Entitic vol] 86.9 fL 82.6 - 102.9 fL [place] Monocytes (Bld) [#/Vol] 1.34 10*3/uL High [place] Monocytes/100 WBC (Bld) 9 % 3 - 12 % [place] Platelet mean volume (Bld) [Entitic vol] 12.8 fL 8.1 - 13.5 fL [place] Platelets (Bld) [#/Vol] NOT REPORTED [place] Platelets (Bld) [#/Vol] 131 10*3/uL Low [place] RBC (Bld) [#/Vol] 3.96 10*6/uL Low 4.21 - 5.7 7 m/uL [place] RBC morphology finding Nom (Bld) NOT REPORTED [place] Segmented neutrophils/100 WBC (Bld) 79 % High 36 - 65 % [place] Segs Absolute 11.42 High [place] WBC (Bld) [#/Vol] 0.0 10*3/uL 0.0 per 10 0 WBC [place] WBC (Bld) [#/Vol] 14.6 10*3/uL High [place] WBC Morphology NOT REPORTED [place] CBC with Diffon 09-07-2019 Abs. Basophil <0.03 Normal 0.00-0.20 [facility] Comment on above: Performed By: #### C TREVIN GLYHGB #### [address] [address] [employer]: Sony Aguilar MD Abs.Imm.Granulocyte 0.05 k/uL Normal 0.00-0.30 [facility] Comment on above: Performed By: #### C TREVIN GLYHGB #### [facility] [address] [place] [address] [employer]: Sony Aguilar MD Abs.Neutrophil (Seg) 11.42 k/uL High 1.50-8.10 [facility] Comment on above: Performed By: #### C TREVIN GLYHGB #### [facility] [address] [place] [address] [employer]: Sony Aguilar MD Basophils/100 WBC (Bld) 0 % Normal 0-2 [facility] Comment on above: Performed By: #### C DP, GLYHGB #### [address] [address] [employer]: Sony Aguilar MD Eosinophils (Bld) [#/Vol] 0.05 10*3/uL Normal 0.00-0.44 [facility] Comment on above: Performed By: #### C DP, GLYHGB #### [address] [address] [employer]: Sony Aguilar MD Eosinophils/100 WBC (Bld) 0 % Low 1-4 [facility] Comment on above: Performed By: #### C DP, GLYHGB #### [address] [address] [employer]: Sony Aguilar MD Erythrocyte distribution width (RBC) [Ratio] 12.0 % Normal 11.8-14.4 [facility] Comment on above: Performed By: #### C DP, GLYHGB #### [address] [address] [employer]: Sony Aguilar MD Hematocrit (Bld) [Volume fraction] 34.4 % Low 40.7-50.3 [facility] Comment on above: Performed By: #### C DP, GLYHGB #### [address] [address] [employer]: Sony Aguilar MD Hemoglobin (Bld) [Mass/Vol] 11.6 g/dL Low 13.0-17.0 [facility] Comment on above: Performed By: #### C DP, GLYHGB #### [address] [address] [employer]: Sony Aguilar MD Immature granulocytes (Bld) [#/Vol] 0 % Normal 0 [facility] Comment on above: Performed By: #### C DP, GLYHGB #### [address] [address] [employer]: Sony Aguilar MD Lymphocytes (Bld) [#/Vol] 1.73 10*3/uL Normal 1.10-3.70 [facility] Comment on above: Performed By: #### C DP, GLYHGB #### [place] [address] [employer]: Sony Aguilar MD Lymphocytes/100 WBC (Bld) 12 % Low 24-43 [facility] Comment on above: Performed By: #### C DP, GLYHGB #### [place] [address] [employer]: Sony Aguilar MD MCH (RBC) [Entitic mass] 29.3 pg Normal 25.2-33.5 [facility] Comment on above: Performed By: #### C DP, GLYHGB #### [place] [address] [employer]: Sony Aguilar MD MCHC (RBC) [Mass/Vol] 33.7 g/dL Normal 28.4-34.8 [facility] Comment on above: Performed By: #### C DP, GLYHGB #### [place] [address] [employer]: Sony Aguilar MD MCV (RBC) [Entitic vol] 86.9 fL Normal 82.6-102.9 [facility] Comment on above: Performed By: #### C DP, GLYHGB #### [address] [address] [employer]: Sony Aguilar MD Monocytes (Bld) [#/Vol] 1.34 10*3/uL High 0.10-1.20 [facility] Comment on above: Performed By: #### C DP, GLYHGB #### [facility] [address] [place] [address] [employer]: Sony Aguilar MD Monocytes/100 WBC (Bld) 9 % Normal 3-12 [facility] Comment on above: Performed By: #### C DP, GLYHGB #### [address] [address] [employer]: Sony Aguilar MD Neutrophil (Seg) 79 % High 36-65 [facility] Comment on above: Performed By: #### C DP, GLYHGB #### [facility] [address] [place] [address] [employer]: Sony Aguilar MD NRBC Automated 0.0 per 100 WBC Normal 0.0 [facility] Comment on above: Performed By: #### C DP, GLYHGB #### [facility] [address] [place] [address] [employer]: Sony Aguilar MD Platelet mean volume (Bld) [Entitic vol] 12.8 fL Normal 8.1-13.5 [facility] Comment on above: Performed By: #### C DP, GLYHGB #### [address] [address] [employer]: Sony Aguilar MD Platelets (Bld) [#/Vol] 131 10*3/uL Low 138-453 [facility] Comment on above: Performed By: #### C DP, GLYHGB #### [address] [address] [employer]: Sony Aguilar MD RBC (Bld) [#/Vol] 3.96 10*6/uL Low 4.21-5.77 [facility] Comment on above: Performed By: #### C DP, GLYHGB #### [facility] [address] [place] [address] [employer]: Sony Aguilar MD WBC (Bld) [#/Vol] 14.6 10*3/uL High 3.5-11.3 [facility] Comment on above: Performed By: #### C DP, GLYHGB #### [address] [address] [employer]: Sony Aguilar MD Auto Diff Performed NOT REPORTED Normal [facility] Comment on above: Performed By: #### C DP, GLYHGB #### [address] [address] [employer]: Sony Aguilar MD Platelets (Bld) [#/Vol] NOT REPORTED Normal [facility] Comment on above: Performed By: #### C DP, GLYHGB #### [address] [address] [employer]: Sony Aguilar MD RBC morphology finding Nom (Bld) NOT REPORTED Normal [facility] Comment on above: Performed By: #### C DP, GLYHGB #### [address] [address] [employer]: Sony Aguilar MD WBC Morphology NOT REPORTED Normal [facility] Comment on above: Performed By: #### C DP, GLYHGB #### [address] [address] [employer]: Sony Aguilar MD Abs. Basophil 0.04 k/uL Normal 0.00-0.20 [facility] Comment on above: Performed By: #### C DP, LACTIC, CRP, CMPX, BH #### [address] [address] [employer]: Sony Aguilar MD Abs.Imm.Granulocyte 0.06 k/uL Normal 0.00-0.30 [facility] Comment on above: Performed By: #### C DP, LACTIC, CRP, CMPX, #### [address] [address] [employer]: Sony Aguilar MD Abs.Neutrophil (Seg) 11.62 k/uL High 1.50-8.10 [facility] Comment on above: Performed By: #### C DP, LACTIC, CRP, CMPX, #### [place] [address] [employer]: Sony Aguilar MD Basophils/100 WBC (Bld) 0 % Normal 0-2 [facility] Comment on above: Performed By: #### C DP, LACTIC, CRP, CMPX, #### [place] [address] [employer]: Sony Aguilar MD Eosinophils (Bld) [#/Vol] 0.03 10*3/uL Normal 0.00-0.44 [facility] Comment on above: Performed By: #### C DP, LACTIC, CRP, CMPX, #### [place] [address] [employer]: Sony Aguilar MD Eosinophils/100 WBC (Bld) 0 % Low 1-4 [facility] Comment on above: Performed By: #### C DP, LACTIC, CRP, CMPX, #### [place] [address] [employer]: Sony Aguilar MD Erythrocyte distribution width (RBC) [Ratio] 11.9 % Normal 11.8-14.4 [facility] Comment on above: Performed By: #### C DP, LACTIC, CRP, CMPX, #### [facility] [address] [place] [address] [employer]: Sony Aguilar MD Hematocrit (Bld) [Volume fraction] 36.0 % Low 40.7-50.3 [facility] Comment on above: Performed By: #### C DP, LACTIC, CRP, CMPX, #### [address] [address] [employer]: Sony Aguilar MD Hemoglobin (Bld) [Mass/Vol] 11.8 g/dL Low 13.0-17.0 [facility] Comment on above: Performed By: #### C DP, LACTIC, CRP, CMPX, #### [address] [address] [employer]: Sony Aguilar MD Immature granulocytes (Bld) [#/Vol] 0 % Normal 0 [facility] Comment on above: Performed By: #### C DP, LACTIC, CRP, CMPX, #### [address] [address] [employer]: Sony Aguilar MD Lymphocytes (Bld) [#/Vol] 1.19 10*3/uL Normal 1.10-3.70 [facility] Comment on above: Performed By: #### C DP, LACTIC, CRP, CMPX, #### [address] [address] [employer]: Sony Aguilar MD Lymphocytes/100 WBC (Bld) 8 % Low 24-43 [facility] Comment on above: Performed By: #### C DP, LACTIC, CRP, CMPX, #### [address] [address] [employer]: Sony Aguilar MD MCH (RBC) [Entitic mass] 29.8 pg Normal 25.2-33.5 [facility] Comment on above: Performed By: #### C DP, LACTIC, CRP, CMPX, #### [address] [address] [employer]: Sony Aguilar MD MCHC (RBC) [Mass/Vol] 32.8 g/dL Normal 28.4-34.8 [facility] Comment on above: Performed By: #### C DP, LACTIC, CRP, CMPX, #### [address] [address] [employer]: Sony Aguilar MD MCV (RBC) [Entitic vol] 90.9 fL Normal 82.6-102.9 [facility] Comment on above: Performed By: #### C DP, LACTIC, CRP, CMPX, #### [address] [address] [employer]: Sony Aguilar MD Monocytes (Bld) [#/Vol] 1.39 10*3/uL High 0.10-1.20 [facility] Comment on above: Performed By: #### C DP, LACTIC, CRP, CMPX, #### [address] [address] [employer]: Sony Aguilar MD Monocytes/100 WBC (Bld) 10 % Normal 3-12 [facility] Comment on above: Performed By: #### C DP, LACTIC, CRP, CMPX, #### [address] [address] [employer]: Sony Aguilar MD Neutrophil (Seg) 82 % High 36-65 [facility] Comment on above: Performed By: #### C DP, LACTIC, CRP, CMPX, #### [address] [address] [employer]: Sony Aguilar MD NRBC Automated 0.0 per 100 WBC Normal 0.0 [facility] Comment on above: Performed By: #### C DP, LACTIC, CRP, CMPX, #### [address] [address] [employer]: Sony Aguilar MD Platelet mean volume (Bld) [Entitic vol] 12.0 fL Normal 8.1-13.5 [facility] Comment on above: Performed By: #### C DP, LACTIC, CRP, CMPX, #### [address] [address] [employer]: Sony Aguilar MD Platelets (Bld) [#/Vol] 160 10*3/uL Normal 138-453 [facility] Comment on above: Performed By: #### C DP, LACTIC, CRP, CMPX, #### [address] [address] [employer]: Sony Aguilar MD RBC (Bld) [#/Vol] 3.96 10*6/uL Low 4.21-5.77 [facility] Comment on above: Performed By: #### C DP, LACTIC, CRP, CMPX, #### [address] [address] [employer]: Sony Aguilar MD WBC (Bld) [#/Vol] 14.3 10*3/uL High 3.5-11.3 [facility] Comment on above: Performed By: #### C DP, LACTIC, CRP, CMPX, #### [address] [address] [employer]: Sony Aguilar MD Auto Diff Performed NOT REPORTED Normal [facility] Comment on above: Performed By: #### C DP, LACTIC, CRP, CMPX, #### [address] [address] [employer]: Sony Aguilar MD Platelets (Bld) [#/Vol] NOT REPORTED Normal [facility] Comment on above: Performed By: #### C DP, LACTIC, CRP, CMPX, #### [address] [address] [employer]: Sony Aguilar MD RBC morphology finding Nom (Bld) NOT REPORTED Normal [facility] Comment on above: Performed By: #### C DP, LACTIC, CRP, CMPX, #### [facility] [address] [place] [address] [employer]: Sony Aguilar MD WBC Morphology NOT REPORTED Normal [facility] Comment on above: Performed By: #### C DP, LACTIC, CRP, CMPX, #### [facility] [address] [place] [address] [employer]: Sony Aguilar MD Comp Metabolic Pr/rfx MGon 1 11-08-2018 AST [Catalytic activity/Vol] 13 U/L Normal <40 [facility] Comment on above: Performed By: #### C DP, LACTIC, CRP, CMPX, #### [address] [address] [employer]: Sony Aguilar MD (cont.) Normal [facility] Comment on above: Result Comment: Aver age GFR for 60-69 years old: 85 mL/min/1.73sq m Chronic Kidney Disease: <60 mL/min/1.73sq m Kidney failure: <15 mL/min/1.73sq m eGFR calculated using average adult body mass. Additional eGFR calculator available at: http://www.[employer]/multiple_crcl_2011.htm Performed By: #### C DP, LACTIC, CRP, CMPX, #### [address] [address] [employer]: Sony Aguilar MD Albumin [Mass/Vol] 2.6 g/dL Low 3.5-5.2 [facility] Comment on above: Performed By: #### C DP, LACTIC, CRP, CMPX, #### [address] [address] [employer]: Sony Aguilar MD Albumin/Globulin [Mass ratio] 0.9 {ratio} Low 1.0-2.5 [facility] Comment on above: Performed By: #### C DP, LACTIC, CRP, CMPX, #### [facility] [address] [place] [address] [employer]: Sony Aguilar MD Alkaline Phos 72 U/L Normal 40-129 [facility] Comment on above: Performed By: #### C DP, LACTIC, CRP, CMPX, #### [facility] [address] [place] [address] [employer]: Sony Aguilar MD ALT [Catalytic activity/Vol] 14 U/L Normal 5-41 [facility] Comment on above: Performed By: #### C DP, LACTIC, CRP, CMPX, #### [address] [address] [employer]: Sony Aguilar MD Anion gap [Moles/Vol] 11 mmol/L Normal 9-17 [facility] Comment on above: Performed By: #### C DP, LACTIC, CRP, CMPX, #### [facility] [address] [place] [address] [employer]: Sony Aguilar MD Bilirubin Ql (U) 0.64 mg/dL Normal 0.3-1.2 [facility] Comment on above: Performed By: #### C DP, LACTIC, CRP, CMPX, #### [facility] [address] [place] [address] [employer]: Sony Aguilar MD Calcium [Mass/Vol] 7.6 mg/dL Low 8.6-10.4 [facility] Comment on above: Performed By: #### C DP, LACTIC, CRP, CMPX, #### [facility] [address] [place] [address] [employer]: Sony Aguilar MD Chloride [Moles/Vol] 99 mmol/L Normal 98-107 [facility] Comment on above: Performed By: #### C DP, LACTIC, CRP, CMPX, #### [address] [address] [employer]: Sony Aguilar MD CO2 [Moles/Vol] 22 mmol/L Normal 20-31 [facility] Comment on above: Performed By: #### C DP, LACTIC, CRP, CMPX, #### [facility] [address] [place] [address] [employer]: Sony Aguilar MD Creatinine [Mass/Vol] 1.22 mg/dL High 0.70-1.20 [facility] Comment on above: Performed By: #### C DP, LACTIC, CRP, CMPX, #### [address] [address] [employer]: Sony Aguilar MD GFR, Amer >60 Normal >60 [facility] Comment on above: Performed By: #### C DP, LACTIC, CRP, CMPX, #### [address] [address] [employer]: Sony Aguilar MD GFR,non Amer 60 mL/min Low >60 [facility] Comment on above: Performed By: #### C DP, LACTIC, CRP, CMPX, #### [facility] [address] [place] [address] [employer]: Sony Aguilar MD Glucose [Mass/Vol] 293 mg/dL High 70-99 [facility] Comment on above: Performed By: #### C DP, LACTIC, CRP, CMPX, #### [facility] [address] [place] [address] [employer]: Sony Aguilar MD Potassium [Moles/Vol] 4.3 mmol/L Normal 3.7-5.3 [facility] Comment on above: Performed By: #### C DP, LACTIC, CRP, CMPX, #### [facility] [address] [place] [address] [employer]: Sony Aguilar MD Protein [Mass/Vol] 5.6 g/dL Low 6.4-8.3 [facility] Comment on above: Performed By: #### C DP, LACTIC, CRP, CMPX, #### [address] [address] [employer]: Sony Aguilar MD Sodium [Moles/Vol] 132 mmol/L Low 135-144 [facility] Comment on above: Performed By: #### C DP, LACTIC, CRP, CMPX, #### [address] [address] [employer]: Sony Aguilar MD Urea nitrogen [Mass/Vol] 34 mg/dL High 8-23 [facility] Comment on above: Performed By: #### C DP, LACTIC, CRP, CMPX, #### [address] [address] [employer]: Sony Aguilar MD BUN/CRE Ratio NOT REPORTED Normal 9-20 [facility] Comment on above: Performed By: #### C DP, LACTIC, CRP, CMPX, #### [address] [address] [employer]: Sony Aguilar MD Staging: NOT REPORTED Normal [facility] Comment on above: Performed By: #### C DP, LACTIC, CRP, CMPX, #### [facility] [address] [place] [address] [employer]: Sony Aguilar MD Lactic Acidon 09-07-2019 Lactate [Moles/Vol] 1.4 mmol/L Normal 0.7-2.1 [facility] Comment on above: Performed By: #### C DP, LACTIC, CRP, CMPX, #### [facility] [address] [place] [phone] [employer]: Sony Aguilar MD Lactate [Moles/Vol] NOT REPORTED Normal [facility] Comment on above: Performed By: #### C DP, LACTIC, CRP, CMPX, #### [facility] [address] [place] [phone] [employer]: Sony Aguilar MD MRSA DNA Probe, Nasalon 12 MRSA, DNA, Nasal NEGATIVE: MRSA DNA n ot detected by nucleic acid amplification. NEGATIVE: MRSA DNA not detected by nucleic acid amplificati [place], [place] Comment on above: Results should be used as an adjunct to nosocomial control efforts to identify patients needing enhanced precautions. The test is not intended to identify patients with staphylococcal infections. Results should not be used to guide or monitor treatment for MRSA infections. Specimen Description .NASAL SWAB [place], [place] MRSA, DNA, Nasalon 9 MRSA, DNA, Nasal NEGATIVE: MRSA DNA n ot detected by nucleic acid amplification. Normal NMRSAA [facility] Comment on above: Result Comment: Results should be used as an adjunct to nosocomial control efforts to identify patients needing enhanced precautions. The test is not intended to identify patients with staphylococcal infections. Results should not be used to guide or monitor treatment for MRSA infections. Performed By: #### C DP, LACTIC, CRP, CMPX, #### [facility] [address] [place] [phone] [employer]: Sony Aguilar MD POC Glucose Fingerstickon Glucose [Mass/Vol] 153 mg/dL High 75 - 110 mg/dL [place] Interpretation and review of laboratory results Abnormal [place] Glucose [Mass/Vol] 163 mg/dL High 75 - 110 mg/dL [place] Interpretation and review of laboratory results Abnormal [place] Glucose [Mass/Vol] 174 mg/dL High 75 - 110 mg/dL [place] Interpretation and review of laboratory results Abnormal [place] Glucose [Mass/Vol] 189 mg/dL High 75 - 110 mg/dL [place] Interpretation and review of laboratory results Abnormal [place] Glucose [Mass/Vol] 116 mg/dL High 75 - 110 mg/dL [place] Interpretation and review of laboratory results Abnormal [place] Glucose [Mass/Vol] 139 mg/dL High 75 - 110 mg/dL [place] Interpretation and review of laboratory results Abnormal [place] Glucose [Mass/Vol] 135 mg/dL High 75 - 110 mg/dL [place] Interpretation and review of laboratory results Abnormal [place] Glucose [Mass/Vol] 182 mg/dL High 75 - 110 mg/dL [place] Interpretation and review of laboratory results Abnormal [place] Glucose [Mass/Vol] 157 mg/dL High 75 - 110 mg/dL [place] Interpretation and review of laboratory results Abnormal [place] Glucose [Mass/Vol] 150 mg/dL High 75 - 110 mg/dL [place] Interpretation and review of laboratory results Abnormal [place] Glucose [Mass/Vol] 139 mg/dL High 75 - 110 mg/dL [place] Interpretation and review of laboratory results Abnormal [place] Glucose [Mass/Vol] 167 mg/dL High 75 - 110 mg/dL [place] Interpretation and review of laboratory results Abnormal [place] Glucose [Mass/Vol] 190 mg/dL High 75 - 110 mg/dL [place] Interpretation and review of laboratory results Abnormal [place] Glucose [Mass/Vol] 181 mg/dL High 75 - 110 mg/dL [place] Interpretation and review of laboratory results Abnormal [place] Glucose [Mass/Vol] 236 mg/dL High 75 - 110 mg/dL [place] Interpretation and review of laboratory results Abnormal [place] Type + Screenon 09-07-2019 Type + Screen Sample Expiration 09/09/2019,2359 Arm Band Number BE [id number] ABO/Rh(D) O NEGATIVE Antibody Screen NEGATIVE Normal [facility] Comment on above: Performed By: #### T YS #### [facility] [address] [place] [address] [employer]: Sony Aguilar MD BLOOD BANK SPECIMENon 2018 Blood Bank Specimen NOT REPORTED [place] Beta-Hydroxybutyrateon 09-06 Beta-Hydroxybutyrate 0.67 mmol/L High 0.02 - 0.27 mmol/L [place] Interpretation and review of laboratory results Abnormal [place] Blood Bank Specimenon 2018 Blood Bank Specimen NOT REPORTED Normal [facility] C-Reactive Proteinon 019 CRP [Mass/Vol] 237.9 mg/L High 0 - 5 mg/L [place] Interpretation and review of laboratory results Abnormal [place] CBC auto differentialon Basophils (Bld) [#/Vol] 0.04 10*3/uL [place] Basophils/100 WBC (Bld) 0 % 0 - 2 % [place] Differential Type NOT REPORTED [place] Eosinophils (Bld) [#/Vol] 0.03 10*3/uL [place] Eosinophils/100 WBC (Bld) 0 % Low 1 - 4 % [place] Erythrocyte distribution width (RBC) [Ratio] 11.9 % 11.8 - 14.4 % [place] Hematocrit (Bld) [Volume fraction] 36.0 % Low 40.7 - 50.3 % [place] Hemoglobin (Bld) [Mass/Vol] 11.8 g/dL Low 13 - 17 g/dL [place] Immature granulocytes (Bld) [#/Vol] 0.06 10*3/uL [place] Immature granulocytes (Bld) [#/Vol] 0 % 0 [place] Interpretation and review of laboratory results Abnormal [place] Lymphocytes (Bld) [#/Vol] 1.19 10*3/uL [place] Lymphocytes/100 WBC (Bld) 8 % Low 24 - 43 % [place] MCH (RBC) [Entitic mass] 29.8 pg 25.2 - 33.5 pg [place] MCHC (RBC) [Mass/Vol] 32.8 g/dL 28.4 - 34.8 g/dL [place] MCV (RBC) [Entitic vol] 90.9 fL 82.6 - 102.9 fL [place] Monocytes (Bld) [#/Vol] 1.39 10*3/uL [place] Monocytes/100 WBC (Bld) 10 % 3 - 12 % [place] Platelet mean volume (Bld) [Entitic vol] 12.0 fL 8.1 - 13.5 fL [place] Platelets (Bld) [#/Vol] 160 10*3/uL [place] Platelets (Bld) [#/Vol] NOT REPORTED [place] RBC (Bld) [#/Vol] 3.96 10*6/uL Low 4.21 - 5.7 7 m/uL [place] RBC morphology finding Nom (Bld) NOT REPORTED [place] Segmented neutrophils/100 WBC (Bld) 82 % High 36 - 65 % [place] Segs Absolute 11.62 [place] WBC (Bld) [#/Vol] 0.0 10*3/uL 0.0 per 10 0 WBC [place] WBC (Bld) [#/Vol] 14.3 10*3/uL [place] WBC Morphology NOT REPORTED [place] Comprehensive Metabolic Pane l w/ Reflex to MGon 09-06-2019 Albumin [Mass/Vol] 2.6 g/dL Low 3.5 - 5.2 g/dL [place] Albumin/Globulin [Mass ratio] 0.9 {ratio} Low [place] ALP [Catalytic activity/Vol] 72 U/L 40 - 129 U/L [place] ALT [Catalytic activity/Vol] 14 U/L 5 - 41 U/L [place] Anion gap [Moles/Vol] 11 mmol/L 9 - 17 mmol/L [place] AST [Catalytic activity/Vol] 13 U/L <40 [place] Bilirubin Ql (U) 0.64 mg/dL 0.3 - 1.2 mg/dL [place] Bun/Cre Ratio NOT REPORTED [place], [place] Calcium [Mass/Vol] 7.6 mg/dL Low 8.6 - 10. 4 mg/dL [place] Chloride [Moles/Vol] 99 mmol/L 98 - 10 7 mmol/L [place] CO2 [Moles/Vol] 22 mmol/L 20 - 31 mmol/L [place] Creatinine [Mass/Vol] 1.22 mg/dL High 0.7 - 1.2 mg/dL [place] GFR >60 >60 mL/min [place] GFR Non- 60 mL/min Low >60 [place] GFR/1.73 sq M predicted among non-blacks MDRD (S/P/Bld) [Vol rate/Area] NOT REPORTED [place] GFR/1.73 sq M predicted among non-blacks MDRD (S/P/Bld) [Vol rate/Area] [place] Comment on above: Average GFR for 60-6 9 years old: 85 mL/min/1.73sq m Chronic Kidney Disease: <60 mL/min/1.73sq m Kidney failure: <15 mL/min/1.73sq m eGFR calculated using average adult body mass. Additional eGFR calculator available at: http://www.[employer]/multiple_crcl_2012.htm Glucose [Mass/Vol] 293 mg/dL High 70 - 99 mg/dL [place] Interpretation and review of laboratory results Abnormal [place] Potassium [Moles/Vol] 4.3 mmol/L 3.7 - 5.3 mmol/L [place] Protein [Mass/Vol] 5.6 g/dL Low 6.4 - 8.3 g/dL [place] Sodium [Moles/Vol] 132 mmol/L Low 135 - 144 mmol/L [place] Urea nitrogen [Mass/Vol] 34 mg/dL High 8 - 23 mg/dL [place] Lactic acid, plasmaon 2018 Lactate [Moles/Vol] NOT REPORTED mmol/L [place], [place] Lactic Acid, Whole Blood 1.4 mmol/L 0.7 - 2.1 mmol/L [place] MRSA, DNA, Nasalon 9 Specimen Description .NASAL SWAB Normal [facility] Comment on above: Performed By: #### C DP, LACTIC, CRP, CMPX, #### [facility] [address], [place] [id number] [employer] Operator: Sony Aguilar MD POC Glucose Fingerstickon Glucose [Mass/Vol] 286 mg/dL High 75 - 110 mg/dL [place] Interpretation and review of laboratory results Abnormal [place] Glucose [Mass/Vol] 281 mg/dL High 75 - 110 mg/dL [place] Interpretation and review of laboratory results Abnormal [place] Glucose [Mass/Vol] 294 mg/dL High 75 - 110 mg/dL [place] Interpretation and review of laboratory results Abnormal [place] Glucose [Mass/Vol] 288 mg/dL High 75 - 110 mg/dL [place] Interpretation and review of laboratory results Abnormal [place] TYPE AND SCREENon 09-06-2019 ABO/Rh Negative [place], [place] Arm Band Number BE [id number] [place], [place] Expiration Date 09/09/2019,[address] [place] Vital Signs Date Time Vital Sign Value Performing Clinician John nicholas 12-25-2023 14:52-0400 Diastolic blood pressure 90 mm[Hg] Jaja Lee [facility] 12-25-2023 14:52-0400 Heart rate 55 /min Jaja Lee [facility] 12-25-2023 14:52-0400 SaO2% (BldA) [Mass fraction] 94 % Jaja Koffitheesherine [facility] 12-25-2023 14:52-0400 Systolic blood pressure 142 mm[Hg] Jaja Lee [facility] 10-21-2023 12:07-0500 Body height 188 cm Geovani Mack MD Work Phone[facility] 10-21-2023 12:07-0500 Body mass index (BMI) [Ratio] 30.17 kg/m2 Geovani Mack MD Work Phone: [facility] 10-21-2023 12:07-0500 Body weight 106.59 kg Geovani Mack MD Work Phone: [facility] 10-21-2023 12:07-0500 Diastolic blood pressure 54 mm[Hg] Geovani Mack MD Work Phone: [facility] 10-21-2023 12:07-0500 Heart rate 58 /min Geovani Mack MD Work Phone: [facility] 10-21-2023 12:07-0500 Systolic blood pressure 102 mm[Hg] Geovani Mack MD Work Phone: [facility] 09-16-2023 12:46-0500 Body mass index (BMI) [Ratio] 34.7 kg/m2 Geovani Mack MD Work Phone: [facility] 09-16-2023 12:46-0500 Body weight 106.59 kg Geovani Mack MD Work Phone: [facility] 09-16-2023 12:42-0500 Body height 175.3 cm Geovani Mack MD Work Phone: [facility] 09-16-2023 12:42-0500 Diastolic blood pressure 66 mm[Hg] Geovani Mack MD Work Phone: [facility] 09-16-2023 12:42-0500 Heart rate 112 /min Geovani Mack MD Work Phone: [facility] 09-16-2023 12:42-0500 Systolic blood pressure 104 mm[Hg] Geovani Mack MD Work Phone: [facility] 04-06-2023 09:44-0400 Body mass index (BMI) [Ratio] 30.81 kg/m2 Geovani Mack MD Work Phone: [facility] 04-06-2023 09:44-0400 Body weight 96 kg Geovani Mack MD Work Phone: [facility] 03-26-2023 10:22-0400 Diastolic blood pressure 68 mm[Hg] Jaja Lee [facility] 03-26-2023 10:22-0400 Heart rate 71 /min Jaja Lee [facility] 03-26-2023 10:22-0400 Respiratory rate 14 /min Jaja Lee [facility] 03-26-2023 10:22-0400 SaO2% (BldA) [Mass fraction] 96 % Jaja Lee [facility] 03-26-2023 10:22-0400 Systolic blood pressure 118 mm[Hg] Jaja Lee [facility] 03-24-2023 13:36-0400 Body height 176.53 cm [facility] Work Phone: 03-24-2023 13:36-0400 Body mass index (BMI) [Ratio] 30.65 kg/m2 Hermilo Croucha Work Phone: [facility] 305 DO Work Phone: 03-24-2023 13:36-0400 Body surface area Derived from formula 2.12 m2 Rugen M Mati Work Phone: [facility] 305 DO Work Phone: 03-24-2023 13:36-0400 Body weight 95.51 kg Rugtheresa Lewis [place] Work Phone: [facility] 305 DO Work Phone: 03-24-2023 13:36-0400 Diastolic blood pressure 52 mm[Hg] Rugtheresa Lewis [place] Work Phone: [facility] 305 DO Work Phone: 03-24-2023 13:36-0400 Heart rate 72 /min Rugtheresa Lewis Mati Work Phone: [facility] 305 DO Work Phone: 03-24-2023 13:36-0400 Systolic blood pressure 90 mm[Hg] Hermilo Lewis Mati Work Phone: [facility] [address] DO Work Phone: 02-14-2023 12:10-0400 Hourly Rounding Isaías FLEMING [facility] 02-14-2023 12:10-0400 Promise to Return Isaías FLEMING [facility] 02-14-2023 11:15-0400 Heart rate 67 /min Isaías LEELIN [facility] 02-14-2023 11:15-0400 SaO2% (BldA) [Mass fraction] 99 % Isaíasara WILDESLIN [facility] 02-14-2023 11:15-0400 Body temperature 97.52 [degF] Isaías WILDESLIN [facility] 02-14-2023 11:14-0400 Diastolic blood pressure 73 mm[Hg] Isaías WILDESLIN [facility] 02-14-2023 11:14-0400 Mean blood pressure 91 mm[Hg] Isaías LONNIE [facility] 02-14-2023 11:14-0400 Systolic blood pressure 128 mm[Hg] Isaías LONNIE [facility] 02-14-2023 11:10-0400 Hourly Rounding Isaías LONNIE [facility] 02-14-2023 11:10-0400 Promise to Return Isaías LONNIE [facility] 02-14-2023 10:23-0400 Hourly Rounding Isaías LONNIE [facility] 02-14-2023 10:23-0400 Promise to Return Isaías LONNIE [facility] 02-14-2023 07:34-0400 Heart rate 67 /min Isaías LONNIE [facility] 02-14-2023 07:34-0400 SaO2% (BldA) [Mass fraction] 100 % Isaías LONNIE [facility] 02-14-2023 07:34-0400 Body temperature 96.26 [degF] Isaías LONNIE [facility] 02-14-2023 07:33-0400 Diastolic blood pressure 80 mm[Hg] Isaías LONNIE [facility] 02-14-2023 07:33-0400 Mean blood pressure 104 mm[Hg] Isaías LONNIE [facility] 02-14-2023 07:33-0400 Systolic blood pressure 153 mm[Hg] Isaías LONNIE [facility] 02-14-2023 00:29-0400 Heart rate 60 /min Isaíasara WILDESLIN [facility] 02-14-2023 00:29-0400 SaO2% (BldA) [Mass fraction] 99 % Isaíasara WILDESLIN [facility] 02-14-2023 00:20-0400 Diastolic blood pressure 80 mm[Hg] Isaías LONNIE [facility] 02-14-2023 00:20-0400 Mean blood pressure 105 mm[Hg] Isaíasara WILDESLIN [facility] 02-14-2023 00:20-0400 Systolic blood pressure 156 mm[Hg] Isaíasara WILDESLIN [facility] 02-14-2023 00:18-0400 Body temperature 97.7 [degF] Isaíasara WILDESLIN [facility] 02-13-2023 19:25-0400 Body temperature 97.16 [degF] Isaíasara WILDESLIN [facility] 02-13-2023 15:44-0400 Body temperature 96.44 [degF] Isaíasara WILDESLIN [facility] 02-13-2023 11:00-0400 Body temperature 96.8 [degF] Isaíasara WILDESLIN [facility] 02-13-2023 10:30-0400 Blood Pressure Location Isaíasara WILDESLIN [facility] 02-13-2023 10:30-0400 Heart rate 50 /min Isaíasara WILDESLIN [facility] 02-13-2023 10:30-0400 Respiratory rate 16 /min Isaíasara WILDESLIN [facility] 02-13-2023 10:10-0400 Mean blood pressure 91 mm[Hg] Isaíasara WILDESLIN [facility] 02-13-2023 10:10-0400 Respiratory rate 20 /min Isaíasara WILDESLIN [facility] 02-13-2023 08:16-0400 Mean blood pressure 97 mm[Hg] Isaíasara WILDESLIN [facility] 02-13-2023 08:16-0400 Respiratory rate 18 /min Isaíasara WILDESLIN [facility] 02-13-2023 07:30-0400 Mean blood pressure 82 mm[Hg] Isaíasara WILDESLIN [facility] 02-13-2023 07:30-0400 Respiratory rate 22 /min Isaíasara WILDESLIN [facility] 02-13-2023 01:02-0400 SaO2% (BldA) [Mass fraction] 95.0 % Isaíasara WILDESLIN [facility] Resp Auto SS 02-13-2023 00:50-0400 gluc 124 mg/dL Isaíasara WILDESLIN [facility] 02-13-2023 00:50-0400 gluc Isaíasara WILDESLIN [facility] 02-13-2023 00:23-0400 Heart rate 52 /min Isaíasara WILDESLIN [facility] 02-13-2023 00:23-0400 Respiratory rate 12 /min Isaíasara WILDESLIN [facility] 02-11-2023 10:53-0400 Blood Pressure Location Bushra GONZALEZChapin [facility] 02-11-2023 10:53-0400 Diastolic blood pressure 65 mm[Hg] Bushra JIMENEZ [facility] 02-11-2023 10:53-0400 Heart rate 73 /min Bushra JIMENEZ [facility] 02-11-2023 10:53-0400 SaO2% (BldA) [Mass fraction] 97 % Bushra JIMENEZ [facility] 02-11-2023 10:53-0400 Systolic blood pressure 113 mm[Hg] Bushramillie JIMENEZ [facility] 01-26-2023 12:53-0400 gluc 156 mg/dL Isaías LONNIE [facility] 01-26-2023 12:00-0400 Diastolic blood pressure 60 mm[Hg] Isaías LONNIE [facility] 01-26-2023 12:00-0400 Heart rate 63 /min Isaías LONNIE [facility] 01-26-2023 12:00-0400 Hourly Rounding Isaías LONNIE [facility] 01-26-2023 12:00-0400 Mean blood pressure 82 mm[Hg] Isaías LONNIE [facility] 01-26-2023 12:00-0400 Promise to Return Isaías LONNIE [facility] 01-26-2023 12:00-0400 Respiratory rate 13 /min Isaías LONNIE [facility] 01-26-2023 12:00-0400 Systolic blood pressure 125 mm[Hg] Isaías LONNIE [facility] 01-26-2023 11:00-0400 Hourly Rounding Isaías LONNIE [facility] 01-26-2023 11:00-0400 Promise to Return Isaías LONNIE [facility] 01-26-2023 10:22-0400 gluc 140 mg/dL Isaías LONNIE [facility] 01-26-2023 10:21-0400 Diastolic blood pressure 52 mm[Hg] Isaías LONNIE [facility] 01-26-2023 10:21-0400 Systolic blood pressure 119 mm[Hg] Isaías LONNIE [facility] 01-26-2023 10:00-0400 Hourly Rounding Isaías LONNIE [facility] 01-26-2023 10:00-0400 Promise to Return Isaías LONNIE [facility] 01-26-2023 08:00-0400 Body temperature 97.7 [degF] Isaías LONNIE [facility] 01-26-2023 08:00-0400 Heart rate 62 /min Isaías LONNIE [facility] 01-26-2023 08:00-0400 Mean blood pressure 74 mm[Hg] Isaías LONNIE [facility] 01-26-2023 04:00-0400 Blood Pressure Location Isaías LONNIE [facility] 01-26-2023 04:00-0400 Body temperature 98.42 [degF] Isaías LONNIE [facility] 01-26-2023 04:00-0400 Heart rate 60 /min Isaías LONNIE [facility] 01-26-2023 04:00-0400 Mean blood pressure 89 mm[Hg] Isaías LONNIE [facility] 01-26-2023 04:00-0400 Respiratory rate 16 /min Isaíasara WILDESLIN [facility] 01-26-2023 04:00-0400 SaO2% (BldA) [Mass fraction] 97 % Isaíasara WILDESLIN [facility] 01-26-2023 00:00-0400 Blood Pressure Location Isaíasara WILDESLIN [facility] 01-26-2023 00:00-0400 Body temperature 98.24 [degF] Isaíasara WILEDSLIN [facility] 01-26-2023 00:00-0400 SaO2% (BldA) [Mass fraction] 97 % Isaíasara WILDESLIN [facility] 01-25-2023 20:35-0400 Heart rate 68 /min Isaíasara WILDESLIN [facility] 01-24-2023 21:08-0400 Heart rate 76 /min Isaíasara WILDESLIN [facility] 01-24-2023 16:32-0400 gluc 208 mg/dL Isaíasara WILDESLIN [facility] 01-23-2023 16:35-0400 Respiratory rate 16 /min Isaíasara WILDESLIN [facility] 01-23-2023 11:16-0400 Mean blood pressure 87 mm[Hg] Isaías LONNIE [facility] 01-23-2023 08:37-0400 Mean blood pressure 91 mm[Hg] Isaías LONNIE [facility] 01-23-2023 04:06-0400 Mean blood pressure 91 mm[Hg] Isaías LONNIE [facility] 01-22-2023 04:20-0400 Heart rate 87 /min Isaías LONNIE [facility] 01-22-2023 04:20-0400 Respiratory rate 18 /min Isaías LONNIE [facility] 01-22-2023 00:39-0400 gluc Isaías LONNIE [facility] 01-22-2023 00:30-0400 Respiratory rate 18 /min Isaías LONNIE [facility] 12-25-2022 14:42-0400 Hourly Rounding Isaías LONNIE [facility] 12-25-2022 14:42-0400 Promise to Return Isaías LONNIE [facility] 12-25-2022 14:00-0400 Respiratory rate 18 /min Isaías LONNIE [facility] 12-25-2022 13:00-0400 Hourly Rounding Isaías LONNIE [facility] 12-25-2022 13:00-0400 Promise to Return Isaías LONNIE [facility] 12-25-2022 12:32-0400 Hourly Rounding Isaías LONNIE [facility] 12-25-2022 12:32-0400 Promise to Return Isaías LONNIE [facility] 12-25-2022 12:23-0400 gluc 214 mg/dL Isaías LONNIE [facility] 12-25-2022 11:40-0400 Heart rate 53 /min Isaías LONNIE [facility] 03-23-2023 11:40-0400 SaO2% (BldA) [Mass fraction] 99 % Isaías WILDESLIN [facility] 12-25-2022 11:40-0400 Body temperature 97.88 [degF] Isaíasara WILDESLIN [facility] 12-25-2022 11:39-0400 Diastolic blood pressure 67 mm[Hg] Isaíasara WILDESLIN [facility] 12-25-2022 11:39-0400 Mean blood pressure 79 mm[Hg] Isaíasara WILDESLIN [facility] 12-25-2022 11:39-0400 Systolic blood pressure 102 mm[Hg] Isaíasara WILDESLIN [facility] 12-25-2022 09:02-0400 gluc 140 mg/dL Isaías WILDESLIN [facility] 12-25-2022 08:04-0400 Heart rate 58 /min Isaíasara WILDESLIN [facility] 12-25-2022 08:04-0400 SaO2% (BldA) [Mass fraction] 99 % Isaías WILDESLIN [facility] 12-25-2022 08:03-0400 Body temperature 97.34 [degF] Isaíasara WILDESLIN [facility] 12-25-2022 08:03-0400 Diastolic blood pressure 75 mm[Hg] Isaíasara WILDESLIN [facility] 12-25-2022 08:03-0400 Mean blood pressure 91 mm[Hg] Isaíasara WILDESLIN [facility] 12-25-2022 08:03-0400 Systolic blood pressure 124 mm[Hg] Isaíasara WILDESLIN [facility] 12-25-2022 02:42-0400 Heart rate 51 /min Isaíasara WILDESLIN [facility] 12-25-2022 02:42-0400 SaO2% (BldA) [Mass fraction] 97 % Isaías LONNIE [facility] 12-25-2022 02:42-0400 Body temperature 97.52 [degF] Isaíasara WILDESLIN [facility] 12-25-2022 02:41-0400 Diastolic blood pressure 76 mm[Hg] Isaías LONNIE [facility] 12-25-2022 02:41-0400 Mean blood pressure 92 mm[Hg] Isaíasara WILDESLIN [facility] 12-25-2022 02:41-0400 Systolic blood pressure 125 mm[Hg] Isaíasara WILDESLIN [facility] 12-24-2022 21:22-0400 gluc 202 mg/dL Isaíasara WILDESLIN [facility] 12-24-2022 18:00-0400 Respiratory rate 18 /min Isaías LONNIE [facility] 12-24-2022 07:54-0400 Respiratory rate 16 /min Isaíasara WILDESLIN [facility] 12-23-2022 11:00-0400 Blood Pressure Location Isaías LONNIE [facility] 12-23-2022 08:03-0400 Body temperature 97.7 [degF] Isaíasara WILDESLIN [facility] 12-22-2022 21:00-0400 Mean blood pressure 91 mm[Hg] Isaías LONNIE [facility] 12-21-2022 08:21-0400 Heart rate 49 /min Isaías LONNIE [facility] 12-21-2022 04:15-0400 Mean blood pressure 100 mm[Hg] Isaías LONNIE [facility] 12-21-2022 04:15-0400 Respiratory rate 19 /min Isaías LONNIE [facility] 12-21-2022 04:00-0400 Mean blood pressure 83 mm[Hg] Isaías LONNIE [facility] 12-21-2022 04:00-0400 Respiratory rate 13 /min Isaías LONNIE [facility] 12-21-2022 03:30-0400 Respiratory rate 12 /min Isaías LONNIE [facility] 12-20-2022 23:22-0400 Heart rate 55 /min Isaías LONNIE [facility] 12-20-2022 23:21-0400 gluc Isaías LONNIE [facility] 12-20-2022 23:07-0400 Heart rate 67 /min Isaías LONNIE [facility] 10-01-2022 11:25-0500 Body height 187.96 cm Ana Norirs Other [employer] [facility] [employer] Other 10-01-2022 11:25-0500 Body mass index (BMI) [Ratio] 28.89 kg/m2 Ana Norris Other [employer] [facility] [employer] Other 10-01-2022 11:25-0500 Body temperature 97.3 [degF] Ana Norris Other [employer] Other 10-01-2022 11:25-0500 Body weight 102.06 kg Ana Norris Other [employer] Other 10-01-2022 11:25-0500 Diastolic blood pressure 64 mm[Hg] Ana Norris Other [employer] Other 10-01-2022 11:25-0500 Respiratory rate 18 /min Ana Norris Other [employer] Other 10-01-2022 11:25-0500 SaO2% (BldA) [Mass fraction] 98 % Ana Norris Other [employer] Other 10-01-2022 11:25-0500 Systolic blood pressure 108 mm[Hg] Ana Norris Other [employer] Other 09-10-2019 11:21-0500 Body Temperature 97.9 [degF] Jeri Lion [facility] [place], [place] 09-10-2019 11:21-0500 BP Diastolic 73 mm[Hg] Jeri Lion [facility], [place] 09-10-2019 11:21-0500 BP Systolic 142 mm[Hg] Jeri Lion [facility], [place] 09-10-2019 11:21-0500 Pulse (Heart Rate) 65 /min Jeri Johns [facility], [place] 09-10-2019 11:21-0500 Pulse Oximetry 94 % Jeri Lion [facility], [place] 09-10-2019 11:21-0500 Respiratory Rate 14 /min Jeri Lion [facility] [place], [place] 09-10-2019 07:45-0500 BMI (Body Mass Index) 35.25 kg/m2 Jeri Lion [facility], [place] 09-10-2019 07:45-0500 Body weight 124.54 kg [facility] [place] 09-10-2019 07:45-0500 Height 188 cm [facility] [place] Encounters Encounter Date Encounter Type Care Provider Facility Start: 12-25-2023 End: 12-26-2023 ambulatory Jaja Lee Facility:[facility] Start: 12-25-2023 End: 12-25-2023 Patient encounter procedure Jaja Lee [facility] Start: 12-25-2023 End: 12-26-2023 [facility] Start: 12-25-2023 End: 12-25-2023 Subsequent hospital visit by physician [facility] Comment on above: Status post placemen t of implantable loop recorder; Syncope and collapse Start: 12-18-2023 End: 12-19-2023 [facility] Start: 12-18-2023 End: 12-18-2023 Subsequent hospital visit by physician [facility] Comment on above: Status post placemen t of implantable loop recorder; Syncope and collapse Start: 12-11-2023 End: 12-12-2023 [facility] Start: 12-11-2023 End: 12-11-2023 Subsequent hospital visit by physician [facility] Comment on above: Status post placemen t of implantable loop recorder; Syncope and collapse Start: 12-04-2023 End: 12-05-2023 [facility] Start: 12-04-2023 End: 12-04-2023 Subsequent hospital visit by physician [facility] Comment on above: Status post placemen t of implantable loop recorder; Syncope and collapse Start: 11-13-2023 [facility] Result Encounter Hermilo Thorne MD Work Phone: [facility] External Department Unsolicited Start: 11-13-2023 [facility] Result Encounter Hermilo Thorne MD Work Phone: [facility] External Department Unsolicited Start: 11-13-2023 End: 11-14-2023 ambulatory [facility] Start: 11-06-2023 End: 11-07-2023 ambulatory [facility] Start: 11-06-2023 End: 11-06-2023 Subsequent hospital visit by physician [facility] Comment on above: Status post placemen t of implantable loop recorder; Syncope and collapse Start: 10-30-2023 End: 10-31-2023 ambulatory [facility] Start: 10-30-2023 End: 10-30-2023 Subsequent hospital visit by physician [facility] Comment on above: Status post placemen t of implantable loop recorder; Syncope and collapse Start: 10-21-2023 End: 10-22-2023 ambulatory [facility] Start: 10-21-2023 End: 10-21-2023 Office outpatient visit 40 minutes Geovani Mack MD Work Phone: [facility] Comment on above: Abnormal EKG (Primar y Dx); Former smoker; Status post placement of implantable loop recorder; Syncope and collapse; Longstanding persistent atrial fibrillation (CMS/HCC); Anticoagulation management encounter; Palpitations; BMI 30.0-30.9,adult; High risk medication use; Bradycardia Start: 10-21-2023 End: 10-21-2023 Subsequent hospital visit by physician [facility] Comment on above: Status post placemen t of implantable loop recorder Start: 10-14-2023 End: 10-14-2023 Evaluation and management of inpatient [facility] Start: 10-14-2023 End: 10-14-2023 Evaluation and management of inpatient ESTHER M [facility] Start: 10-14-2023 End: 10-14-2023 Evaluation and management of inpatient [facility] Start: 10-13-2023 End: 10-13-2023 Evaluation and management of inpatient ESTHER [facility] Start: 10-13-2023 End: 10-13-2023 Evaluation and management of inpatient ESTHER M [facility] Start: 10-13-2023 End: 10-13-2023 Evaluation and management of inpatient [facility] Start: 10-12-2023 End: 10-12-2023 Evaluation and management of inpatient [facility] Start: 10-12-2023 End: 10-12-2023 ambulatory [facility] Start: 10-12-2023 End: 10-14-2023 Evaluation and management of inpatient ESTHER M [facility] Start: 10-09-2023 End: 10-10-2023 ambulatory [facility] Start: 10-09-2023 End: 10-09-2023 Subsequent hospital visit by physician [facility] Comment on above: Status post placemen t of implantable loop recorder; Syncope and collapse Start: 10-07-2023 End: 10-07-2023 Emergency department patient visit Harjit Doan Facility:[facility] Start: 09-25-2023 End: 09-26-2023 ambulatory [facility] Start: 09-25-2023 End: 09-25-2023 Subsequent hospital visit by physician [facility] Comment on above: Status post placemen t of implantable loop recorder; Syncope and collapse Start: 09-18-2023 End: 09-19-2023 ambulatory [facility] Start: 09-18-2023 End: 09-18-2023 Subsequent hospital visit by physician [facility] Comment on above: Status post placemen t of implantable loop recorder; Syncope and collapse Start: 09-16-2023 End: 09-17-2023 ambulatory [facility] Ambulatory Start: 09-16-2023 End: 09-16-2023 Office outpatient visit 40 minutes Geovani Mack MD Work Phone: [facility] Comment on above: Anticoagulation feliciano gement encounter (Primary Dx); Abnormal EKG; Longstanding persistent atrial fibrillation (CMS/HCC); Primary hypertension; Palpitations; Status post placement of implantable loop recorder; BMI 34.0-34.9,adult; Former smoker Start: 09-16-2023 End: 09-16-2023 Subsequent hospital visit by physician [facility] Comment on above: Presence of other ca rdiac implants and grafts; Syncope and collapse Start: 09-11-2023 End: 09-12-2023 [facility] Start: 09-11-2023 End: 09-11-2023 Subsequent hospital visit by physician [facility] Comment on above: Status post placemen t of implantable loop recorder; Syncope and collapse Start: 09-04-2023 End: 09-05-2023 [facility] Start: 09-04-2023 End: 09-04-2023 Subsequent hospital visit by physician [facility] Comment on above: Status post placemen t of implantable loop recorder; Syncope and collapse Start: 08-26-2023 End: 08-27-2023 [facility] Start: 08-26-2023 End: 08-26-2023 Subsequent hospital visit by physician Ar[facility] Comment on above: Status post placemen t of implantable loop recorder; Syncope and collapse Start: 08-21-2023 End: 08-22-2023 [facility] Start: 08-21-2023 End: 08-21-2023 Subsequent hospital visit by physician [facility] Comment on above: Status post placemen t of implantable loop recorder; Syncope and collapse Start: 08-14-2023 End: 08-15-2023 [facility] Start: 08-14-2023 End: 08-14-2023 Subsequent hospital visit by physician [facility] Comment on above: Status post placemen t of implantable loop recorder; Syncope and collapse Start: 08-07-2023 End: 08-08-2023 [facility] Start: 08-07-2023 End: 08-07-2023 Subsequent hospital visit by physician [facility] Comment on above: Status post placemen t of implantable loop recorder; Syncope and collapse Start: 07-16-2023 End: 07-17-2023 ambulatory GEOVANI MACK [facility] Start: 07-16-2023 End: 07-16-2023 Subsequent hospital visit by physician [facility] Comment on above: Status post placemen t of implantable loop recorder; Syncope and collapse Start: 06-25-2023 End: 06-26-2023 ambulatory Jaja Lee Facility:[facility] Start: 06-15-[address] Hermilo Thorne Facility:[id number] Start: 05-11-[address] Hermilo Thorne Facility:[id number] Start: 04-13-2023 ambulatory GEOVANI MACK Facility:[id number] Start: 04-06-2023 End: 04-06-[address] Geovani Mack Facility:[id number] Start: 04-06-2023 End: 04-06-2023 Subsequent hospital visit by physician Geovani Mack MD Work Phone: [facility] Comment on above: Syncope and collapse Start: 03-26-2023 End: 03-27-2023 ambulatory Jaja Lee Facility:[facility] Start: 03-26-2023 End: 03-26-2023 Patient encounter procedure Jaja Lee [facility] Start: 03-24-2023 Office consultation new/estab patient 80 min Hermilo Thorne Work Phone: [facility] 305 DO Work Phone: Start: 03-24-2023 ambulatory GEOVANI MACK Facility:[id number] Start: 02-24-2023 End: 02-25-2023 ambulatory Bushra JIMENEZ Facility:[facility] Start: 02-17-2023 End: 02-17-2023 Emergency department patient visit DO Tita Albright Facility:[facility] Start: 02-13-2023 End: 02-14-2023 ambulatory John Lyn Facility:[facility] Start: 02-13-2023 End: 02-14-2023 Observation Isaías FLEMING [facility] Start: 02-11-2023 End: 02-12-2023 ambulatory Bushra JIMENEZ Facility:[facility] Start: 02-11-2023 End: 02-11-2023 Patient encounter procedure Bushra JIMENEZ [facility] Start: 02-11-2023 End: 02-11-[address] HERMILO THORNE Facility: Start: 01-22-2023 End: 01-26-2023 Evaluation and management of inpatient John Lyn Facility:[facility] Start: 01-22-2023 End: 01-26-2023 Evaluation and management of inpatient Isaías FLEMING [facility] Start: 01-19-2023 End: 01-20-2023 Evaluation and management of inpatient John S Eboni Facility:[facility] Start: 01-15-2023 End: 01-15-[address] LILIA ENGEL Facility:H1 Start: 01-01-2023 End: 01-02-2023 ambulatory Bushra JIMENEZ Facility:[facility] Start: 12-30-2022 End: 01-23-2023 Pre-admission assessment Kelly MACIAS [facility] Start: 12-24-2022 ambulatory GEOVANI MACK Facility:[id number] Start: 12-20-2022 End: 12-25-2022 Evaluation and management of inpatient Isaías FLEMING [facility] Start: 12-17-2022 End: 12-18-[address] LILIA [...] Start: 10-01-2022 End: 10-01-2022 ambulatory Ana Norris Facility:[facility] Start: 10-01-2022 End: 10-01-2022 ambulatory MD Bernie Guerra Work Phone: [facility] Work Phone: Start: 10-01-2022 End: 10-01-2022 Patient encounter procedure MD Bernie Guerra Work Phone: [facility] Work Phone: Start: 09-25-2022 End: 09-26-2022 ambulatory Bernie Guerra Facility:[facility] Start: 09-25-2022 End: 09-26-2022 ambulatory Bernie Guerra Facility:[facility] Start: 09-17-2022 End: 09-17-2022 ambulatory Kamran Wills Facility:[facility] Start: 09-01-2022 End: 09-02-2022 ambulatory Bernie Guerra Facility:[facility] Start: 08-26-2022 ambulatory Hue Monet Facility:[facility] Start: 08-20-2022 End: 08-21-2022 ambulatory Bernie Guerra Facility:[facility] Start: 08-20-2022 End: 08-21-2022 ambulatory Bernie Guerra Facility:[facility] Start: 08-18-2022 End: 08-19-2022 ambulatory Bernie Guerra Facility:[facility] Start: 08-13-2022 End: 08-15-[address] BERNIE GUERAR Facility: Start: 08-04-2022 End: 08-05-2022 ambulatory Bernie Guerra Facility:[facility] Start: 08-04-2022 End: 08-05-2022 ambulatory Bernie Arteaga Charlie Facility:[facility] Start: 07-31-2022 End: 08-01-2022 ambulatory Bernie Arteaga Charlie Facility:[facility] Start: 07-15-2022 End: 07-23-2022 Evaluation and management of inpatient Bernie Guerra Facility:[facility] Start: 07-08-2022 End: 07-15-2022 Evaluation and management of inpatient Bernie Arteaga Charlie Facility:[facility] Start: 07-08-2022 End: 07-09-2022 ambulatory Bernie Arteaga Charlie Facility:[facility] Start: 06-05-2022 End: 06-05-2022 ambulatory Bernie Arteaga Charlie Facility:[facility] Start: 09-06-2019 End: 09-10-2019 Evaluation and management of inpatient JERI LION [facility] Start: 09-06-2019 End: 09-10-2019 Evaluation and management of inpatient Jeri Lion Work Phone: [address] Ortho/Med Surg Patient encounter status Hermilo Thorne Work Phone: [facility] 305 DO Work Phone: Procedures Date Procedure Procedure Detail Performing Clinician Start: 12-25-2023 CARDIAC DEVICE CHECK - REMOTE ESTHER LÓPEZ Start: 12-25-2023 CARDIAC DEVICE CHECK - REMOTE Geovani Mack MD Work Phone: Start: 12-18-2023 CARDIAC DEVICE CHECK - REMOTE ESTHER LÓPEZ Start: 12-18-2023 CARDIAC DEVICE CHECK - REMOTE Geovani Mack MD Work Phone: Start: 12-11-2023 CARDIAC DEVICE CHECK - REMOTE ESTHER LÓPEZ Start: 12-04-2023 CARDIAC DEVICE CHECK - REMOTE ESTHER LÓPEZ Start: 12-04-2023 Inter devc remote 30d Geovani Mack MD Work Phone: Start: 11-13-2023 CARDIAC DEVICE CHECK - REMOTE [...] ESTHER LÓPEZ Start: 10-14-2023 ECG 12-LEAD ESTHER LÓPEZ Start: 10-14-2023 Glucose [Mass/volume] in Serum or Plasma ESTHER LÓPEZ Start: 10-14-2023 Glucose [Mass/volume] in Serum or Plasma ESTHER LÓPEZ Start: 10-14-2023 ECG 12-LEAD ESTHER LÓPEZ Start: 10-14-2023 Basic metabolic 2000 panel - Serum or Plasma ESTHER LÓPEZ Start: 10-14-2023 Magnesium [Mass/volume] in Serum or Plasma ESTHER LÓPEZ Start: 10-14-2023 ECG 12-LEAD ESTHER LÓPEZ Start: 10-13-2023 Glucose [Mass/volume] in Serum or Plasma ESTHER LÓPEZ Start: 10-13-2023 ECG 12-LEAD ESTHER LÓPEZ Start: 10-13-2023 Glucose [Mass/volume] in Serum or Plasma ESTHER LÓPEZ Start: 10-13-2023 CARDIOVERSION EXTERNAL ESTHER LÓPEZ Start: 10-13-2023 PULSE OXIMETRY, SPOT ESTHER LÓPEZ Start: 10-13-2023 TRANSESOPHAGEAL ECHO (JASMYNE) ESTHER LÓPEZ Start: 10-13-2023 Glucose [Mass/volume] in Serum or Plasma ESTHER LÓPEZ Start: 10-13-2023 ECG 12-LEAD ESTHER LÓPEZ Start: 10-13-2023 Glucose [Mass/volume] in Serum or Plasma ESTHER LÓPZE Start: 10-13-2023 Basic metabolic 2000 panel - Serum or Plasma ESTHER LÓPEZ Start: 10-13-2023 Magnesium [Mass/volume] in Serum or Plasma ESTHER LÓPEZ Start: 10-13-2023 ECG 12-LEAD ESTHER LÓPEZ Start: 10-12-2023 Glucose [Mass/volume] in Serum or Plasma ESTHER LÓPEZ Start: 10-12-2023 ECG 12-LEAD ESTHER LÓPEZ Start: 10-12-2023 TRANSFER PATIENT TO NEW UNIT ESTHER LÓPEZ Start: 10-12-2023 ADMIT TO INPATIENT ESTHER LÓPEZ Start: 10-12-2023 FULL CODE ESTHER LÓPEZ Start: 10-12-2023 REASON FOR NO DVT PROPHYLAXIS [...] CHECK CHECK - REMOTE ESTHER LÓPEZ Start: 08-26-2023 CARDIAC DEVICE CHECK CHECK - [...] Work Phone: Start: 04-06-2023 Complete blood count Gevoani Mack MD Work Phone: Start: 04-06-2023 PT and aPTT panel - Platelet poor plasma by Coagulation assay Geovani Mack MD Work Phone: Start: 04-06-2023 ELECTROCARDIOGRAM 12 LEAD Geovani Mack MD Work Phone: Start: 10-01-2022 Plain X-ray of right shoulder MD Bernie Guerra Work Phone: Start: 09-10-2019 INCENTIVE SPIROMETRY RT JERI KENYARAGA DDA Start: 09-10-2019 DISCHARGE PATIENT JERI ZIMMERADDA Start: 09-10-2019 CPAP JERI ESSIE Start: 09-10-2019 INCENTIVE SPIROMETRY RT JERI ZAMBRANORAGA DDA Start: 09-10-2019 Glucose blood reagent strip JERI KENYA RAGADDA Start: 09-10-2019 INCENTIVE SPIROMETRY RT JERI ZAMBRANORAGA DDA Start: 09-10-2019 Glucose blood reagent strip Shawn noriega Work Phone: Start: 09-10-2019 Gluc bld gluc mntr dev cleared fda spec home use JERI ESSIE Start: 09-10-2019 CPAP JERI ESSIE Start: 09-10-2019 INCENTIVE SPIROMETRY RT JERI ZAMBRANORAGA DDA Start: 09-10-2019 INITIATE OXYGEN THERAPY PROTOCOL JERI ZAMBRANORAGADDA Start: 09-10-2019 NASAL CANNULA OXYGEN JERI ZAMBRANORAGADDA Start: 09-10-2019 AMBULATE PATIENT JERI ZIMMERADDA Start: 09-10-2019 STRIP BULB SUCTION JERI ESSIE Start: 09-10-2019 Glucose blood reagent strip JERI KENYA RAGADDA Start: 09-10-2019 INCENTIVE SPIROMETRY RT JERI ZAMBRANORAGA DDA Start: 09-10-2019 Glucose blood reagent strip Shawn noriega Work Phone: Start: 09-10-2019 CPAP JERI ESSIE Start: 09-10-2019 Gluc bld gluc mntr dev cleared fda spec home use JERI ESSIE Start: 09-10-2019 INTAKE AND OUTPUT JERI LION Start: 09-10-2019 CPAP JERI LION Start: 09-10-2019 IP CONSULT TO INFECTIOUS DISEASES JERI LION Start: 09-10-2019 Gluc bld gluc mntr dev cleared fda spec home use JERI LION Start: 09-10-2019 INCENTIVE SPIROMETRY RT JERI OLMEDO DDA Start: 09-09-2019 Glucose blood reagent strip JERI KYLE Start: 09-09-2019 CPAP JERI LION Start: 09-09-2019 INCENTIVE SPIROMETRY RT JERI OLMEDO DDA Start: 09-09-2019 Glucose blood reagent strip Jeri kyle Work Phone: Start: 09-09-2019 Gluc bld gluc mntr dev cleared fda spec home use JERI LION Start: 09-09-2019 INCENTIVE SPIROMETRY RT JERI OLMEDO DDA Start: 09-09-2019 Glucose blood reagent strip JERI KYLE Start: 09-09-2019 CPAP JERI LION Start: 09-09-2019 INCENTIVE SPIROMETRY RT JERI OLMEDO DDA Start: 09-09-2019 Glucose blood reagent strip Jeri kyle Work Phone: Start: 09-09-2019 TRANSFER PATIENT JERI LION Start: 09-09-2019 INCENTIVE SPIROMETRY RT JERI OLMEDO DDA Start: 09-09-2019 Glucose blood reagent strip JERI KYLE Start: 09-09-2019 DIET GENERAL JERI LION Start: 09-09-2019 ASH TUBE DRAIN JERI LION Start: 09-09-2019 MISCELLANEOUS NURSING CARE ORDER (SPECIFY) JERI LION Start: 09-09-2019 PT EVAL AND TREAT JERI LION Start: 09-09-2019 WOUND CARE JERI LION Start: 09-09-2019 CPAP JERI LION Start: 09-09-2019 INCENTIVE SPIROMETRY RT JERI OLMEDO DDA Start: 09-09-2019 Glucose blood reagent strip Jeri kyle Work Phone: Start: 09-09-2019 TRANSFER PATIENT JERI LION Start: 09-09-2019 INCENTIVE SPIROMETRY RT JERI PARISH Start: 09-09-2019 Gluc bld gluc mntr dev [...] Phone: Start: 09-09-2019 INCENTIVE SPIROMETRY RT JERI PARISH Start: 09-09-2019 Blood count complete auto&auto difrntl [...] fda spec home use JERI ZIMMERADDA Start: 09-09-2019 INCENTIVE SPIROMETRY RT JERI OLMEDO DDA Start: 09-08-2019 CPAP JERI ZIMMERADDA Start: 09-08-2019 INCENTIVE SPIROMETRY RT JERI OLMEDO DDA Start: 09-08-2019 Glucose blood reagent strip JERI KYLE Start: 09-08-2019 Gluc bld gluc mntr dev cleared fda spec home use JERI ZIMMERADDA Start: 09-08-2019 INCENTIVE SPIROMETRY RT JERI PARISH Start: 09-08-2019 Glucose blood reagent strip Jeri kyle Work Phone: Start: 09-08-2019 Glucose blood reagent strip JERI KYLE Start: 09-08-2019 CPAP JERI LION Start: 09-08-2019 INCENTIVE SPIROMETRY RT JERI OLMEDO DDA Start: 09-08-2019 Glucose blood reagent strip Jeri kyle Work Phone: Start: 09-08-2019 INCENTIVE SPIROMETRY RT JERI OLMEDO [...] Start: 09-08-2019 Glucose blood reagent strip Jeri valadeza Work Phone: Start: 09-08-2019 Blood count complete auto&auto difrntl wbc JERI ZIMMERADDA Start: 09-08-2019 Comprehensive metabolic panel JERI ZIMMERADDA Start: 09-08-2019 Glucose blood reagent strip Jeri valadeza Work Phone: Start: 09-08-2019 CPAP JERI ZIMMERADDA Start: 09-08-2019 Gluc bld gluc mntr dev cleared fda spec home use JERI ZIMMERADDA Start: 09-08-2019 BASIC METABOLIC PANEL W/ REFLEX TO MG FOR LOW K Cecioscar Turcios Work Phone: Start: 09-08-2019 Blood count complete auto&auto difrntl wbc Ceci Debbie Tam Work Phone: Start: 09-08-2019 End: 09-08-2019 Glucose blood reagent strip Jeri kyle Work Phone: Start: 09-08-2019 End: 09-08-2019 Glucose blood reagent strip Jeri kyle Work Phone: Start: 09-08-2019 INTAKE AND OUTPUT JERI SHRESTHAA Start: 09-08-2019 CPAP JERI ZIMMERADDA Start: 09-08-2019 Gluc bld gluc mntr dev cleared fda spec home use JERI ZIMMERADDA Start: 09-08-2019 Glucose blood reagent strip Jeri kyle Work Phone: Start: 09-08-2019 INCENTIVE SPIROMETRY RT JERI ZIMMERA DDA Start: 09-07-2019 CPAP JERI ZIMMERADDA Start: 09-07-2019 Glucose blood reagent strip Jeri valadeza Work Phone: Start: 09-07-2019 INCENTIVE SPIROMETRY RT JERI ZIMMERA DDA Start: 09-07-2019 End: 09-07-2019 Glucose blood reagent strip Jeri jimadda Work Phone: Start: 09-07-2019 Gluc bld gluc mntr dev cleared fda spec home use JERI LION Start: 09-07-2019 INCENTIVE SPIROMETRY RT JERI PARISH Start: 09-07-2019 Glucose blood reagent strip Jeri kyle Work Phone: Start: 09-07-2019 Glucose blood reagent strip Jeri kyle Work Phone: Start: 09-07-2019 INCENTIVE SPIROMETRY RT JERI OLMEDO DDA Start: 09-07-2019 Glucose blood reagent strip Jeri kyle Work Phone: Start: 09-07-2019 Glucose blood reagent strip Jeri kyle Work Phone: Start: 09-07-2019 INCENTIVE SPIROMETRY RT JERI OLMEDO DDA Start: 09-07-2019 INCENTIVE SPIROMETRY RT JERI PARISH Start: 09-07-2019 ELEVATE HEELS OFF OF BED [...] SPIROMETRY RT JERI OLMEDO DDA Start: 09-07-2019 Gluc bld gluc mntr dev cleared fda spec home use JERI LION Start: 09-07-2019 INCENTIVE SPIROMETRY RT JERI OLMEDO DDA Start: 09-07-2019 End: 09-07-2019 Glucose blood reagent strip Jeri kyle Work Phone: Start: 09-07-2019 NASAL CANNULA OXYGEN JERI LION Start: 09-07-2019 INITIATE OXYGEN THERAPY PROTOCOL JERI LION Start: 09-07-2019 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 ESSIE Start: 09-07-2019 WOUND CARE JERI LION Start: 09-07-2019 DIETARY NUTRITION SUPPLEMENTS JERI LION Start: 09-07-2019 End: 09-07-2019 Glucose blood reagent strip Jeri kyle Work Phone: Start: 09-07-2019 Blood count complete auto&auto difrntl wbc JERI LION Start: 09-07-2019 Comprehensive metabolic panel JERI ZIMMERADDA Start: 09-07-2019 Hemoglobin glycosylated a1c JERI KYLE [...] 09-07-2019 Hemoglobin glycosylated a1c Rocky G W urst Work Phone: Start: 09-07-2019 DAILY WEIGHTS JERI LION Start: 09-07-2019 INTAKE AND OUTPUT JERI LION Start: 09-07-2019 Gluc bld gluc mntr dev cleared fda spec home use JERI LION Start: 09-07-2019 Glucose blood reagent strip JREI KYLE Start: 09-07-2019 Assay of lactate JERI ZIMMERADDA Start: 09-07-2019 Blood count complete auto&auto difrntl wbc JERI ZIMMERADDA Start: 09-07-2019 C-reactive protein JERI ZIMMERADDA Start: 09-07-2019 Ketone bodies serum quantitative JERI ZIMMERADDA Start: 09-07-2019 TYPE AND SCREEN JERI LION [...] JERI LION Start: 09-06-2019 Assay of lactate Benajmin Chapman Work Phone: Start: 09-06-2019 Blood count [...] Work Phone: Start: 09-06-2019 TRANSFER PATIENT JERI LINO Start: 09-06-2019 Culture bacterial quanttative colony count urine Jeri Lion Work Phone: Start: 09-06-2019 Autol bld/component collj storage predeposited JERI LION Start: 09-06-2019 End: 09-06-2019 Glucose blood reagent strip Jeri kyle Work Phone: Start: 09-06-2019 Cul prsmptv pthgnc organism scrn w/colony estimj Jeri Lion Work Phone: Start: 09-06-2019 REASON FOR NO CHEMICAL VTE PROPHYLAXIS JERI LION Start: 09-06-2019 FULL CODE JERI LOIN Start: 09-06-2019 INITIATE OXYGEN THERAPY PROTOCOL JERI [...] End: 09-06-2019 LEG INCISION AND DRAINAGE Lemuel Kelsey ed Work Phone: Start: 09-06-2019 BLOOD BANK SPECIMEN Jeri Lion Work Phone: Start: 09-06-2019 RESPIRATORY CARE EVALUATION ONLY Benjamin Chapman Work Phone: Start: 09-06-2019 PATIENT STATUS (DIRECT) JERI OLMEDO DDA 0 dx img order chest xray ct us mri pet/nuc med Jaja Lee Cardiac catheterization Ruge n M Mati Work Phone: Catheter ablation of arrhythmogenic focus Rugen M Mati Work Phone: Laparoscopic cholecystectomy Rugen M Mati Work Phone: Operative procedure on knee Rugen M Blo[place] Work Phone: Procedure on back Rugen M Al da Work Phone: Repair of shoulder Rugen M A lda Work Phone: Plan of Treatment Date Care Activity Detail Author Start: 04-20-2024 End: 04-20-2024 Patient encounter procedure [facility] Start: 01-20-2024 End: 01-20-2024 Patient encounter procedure 01/20/2024 10:30 AM EDT Office Visit [facility] [address] [place] [id number] Risa Barraza, HYDROGRAPHIC ENGINEER-ACOUSTIC INTELLIGENCE SPECIALIST [address] [facility] [address], [address] [place], [place] [id number] [facility] Start: 10-21-2023 End: 10-21-2023 Patient encounter procedure 10/21/2023 12:45 PM EST Office Visit [facility] [address] [place] [id number] Geovani Mack MD [address] [facility] [address] [facility] [address] [place], [place] [phone] [facility] Start: 09-16-2023 End: 09-16-2023 Patient encounter procedure [facility] Start: 06-05-2023 Influenza vaccination Influenza Vacc ine (#1) [facility] Start: 04-13-2023 FUV, Provider: Geovani Mack, Status: Pen, Time: 10:30 AM FUV, Provider: Geovani Mack, Status: Pen, Time: 10:30 AM [facility] 305 DO Work Phone: Start: 09-09-2020 Creatinine monitoring Creatinine mon itoring [place], [place] Start: 09-09-2020 Potassium monitoring Potassium monit oring [place] Start: 06-05-2019 Influenza vaccination Flu vaccine (# 1) [place], [place] Start: 2018 Abdominal aortic aneurysm screening Abdominal Aortic Aneurysm (AAA) Screening [facility] Start: 2018 Pneumococcal 65+ yea rs Vaccine (1 of 1 - PPSV23) Pneumococcal 65+ years Vaccine (1 of 1 - PPSV23) [place], [place] Start: 2018 Pneumococcal Vaccine : 65+ Years (1 - PCV) Pneumococcal Vaccine: 65+ Years (1 - PCV) [facility] Start: 2003 Zoster Vaccines (1 o f 2) Zoster Vaccines (1 of 2) [facility] Start: 1975 DTaP/Tdap/Td Vaccine s (1 - Tdap) DTaP/Tdap/Td Vaccines (1 - Tdap) [facility] Start: 1972 Urine screening for protein Diabetes: Urine Protein Screening [facility] Start: 1971 Diabetes mellitus screening Diabetes Screening [facility] Start: 1971 Hepatitis C screening Hepatitis C Sc reening [facility] Start: 1963 Diabetic foot examination Diabetes: Foot Exam [facility] Start: 1963 Glaucoma screening Diabetes: R etinopathy Screening [facility] Start: 1959 Pneumococcal Vaccine : 65+ Years (1 - PCV) Pneumococcal Vaccine: 65+ Years (1 - PCV) [facility] Start: 04-17-1954 COVID-19 Vaccine (#1) COVID-19 Vacci ne (#1) [facility] Start: 1953 Hemoglobin A1c measurement Diabetes: Hemoglobin A1C [facility] Start: 1953 Lipid panel Lipid Panel [facility] Start: 1953 Medicare Annual Wellness Visit Medicare Annual Wellness Visit (AWV) [facility] Start: 1953 Screening for malign ant neoplasm of colon [facility] Anaerobic and Aerobi c Culture Anaerobic and Aerobic Culture Microbiology Routine 09/06/2019 8:39 PM [place], [place] End: 09-16-2024 Cardiac Device Check - In Clinic Cardiac Device Check - In Clinic Implantable Cardiac Device Routine Status post placement of implantable loop recorder 1 Occurrences starting 09/16/2023 until 09/16/2024 [facility] Service Area Work Phone: Comment on above: 1 Occurrences starti ng 09/16/2023 until 09/16/2024 Cardiac device check - In Clinic Cardiac device check - In Clinic Implantable Cardiac Device Routine Presence of other cardiac implants and grafts Syncope and collapse 09/16/2023 12:04 PM [facility] Area Work Phone: Cardiac Device Check - In Clinic Cardiac Device Check - In Clinic Implantable Cardiac Device Routine Status post placement of implantable loop recorder 10/21/2023 11:30 AM EST [facility] Area Work Phone: End: 08-07-2023 Cardiac Device Check - Remote [facility] Service Area Work Phone: Comment on above: Once for 1 Occurrenc es starting 08/07/2023 until 08/07/2023 End: 08-14-2023 Cardiac Device Check - Remote [facility] Service Area Work Phone: Comment on above: Once for 1 Occurrenc es starting 08/14/2023 until 08/14/2023 End: 08-21-2023 Cardiac Device Check - Remote [facility] Service Area Work Phone: Comment on above: Once for 1 Occurrenc es starting 08/21/2023 until 08/21/2023 End: 08-26-2023 Cardiac Device Check - Remote [facility] Service Area Work Phone: Comment on above: Once for 1 Occurrenc es starting 08/26/2023 until 08/26/2023 End: 09-04-2023 Cardiac Device Check - Remote [facility] Service Area Work Phone: Comment on above: Once for 1 Occurrenc es starting 09/04/2023 until 09/04/2023 End: 09-11-2023 Cardiac Device Check - Remote [facility] Service Area Work Phone: Comment on above: Once for 1 Occurrenc es starting 09/11/2023 until 09/11/2023 End: 09-18-2023 Cardiac Device Check - Remote [facility] Service Area Work Phone: Comment on above: Once for 1 Occurrenc es starting 09/18/2023 until 09/18/2023 End: 09-25-2023 Cardiac Device Check - Remote [facility] Service Area Work Phone: Comment on above: Once for 1 Occurrenc es starting 09/25/2023 until 09/25/2023 End: 10-09-2023 Cardiac Device Check - Remote [facility] Service Area Work Phone: Comment on above: Once for 1 Occurrenc es starting 10/09/2023 until 10/09/2023 End: 10-30-2023 Cardiac Device Check - Remote [facility] [facility] Work Phone: Comment on above: Once for 1 Occurrenc es starting 10/30/2023 until 10/30/2023 End: 11-06-2023 Cardiac Device Check - Remote [facility] Service Area Work Phone: Comment on above: Once for 1 Occurrenc es starting 11/06/2023 until 11/06/2023 End: 12-11-2023 Cardiac Device Check - Remote [facility] Service Area Work Phone: Comment on above: Once for 1 Occurrenc es starting 12/11/2023 until 12/11/2023 End: 12-25-2023 Cardiac Device Check - Remote [facility] Service Area Work Phone: Comment on above: Once for 1 Occurrenc es starting 12/25/2023 until 12/25/2023 CPAP CPAP Respiratory Care Routine Every 4hr until discontinued starting 09/08/2019 [place] Comment on above: Every 4hr until disc ontinued starting 09/08/2019 Culture Blood #1 [facility] [place] Incentive spirometry RT Incentiv e spirometry RT Respiratory Care Routine Every 2hr while awake until discontinued starting 09/07/2019 [facility] [place] Comment on above: Every 2hr while awak e until discontinued starting 09/07/2019 Initiate Oxygen Ther apy Protocol Initiate Oxygen Therapy Protocol Respiratory Care Routine Daily until discontinued starting 09/06/2019 [facility] [place] Comment on above: Daily until disconti nued starting 09/06/2019 MDI Treatment MDI Treatment Respiratory Care Routine Every 6hr As Needed until discontinued starting 09/07/2019 [facility] [place] Comment on above: Every 6hr As Needed until discontinued starting 09/07/2019 Nasal Cannula Oxygen Nasal Cannu la Oxygen Respiratory Care Routine Daily until discontinued starting 09/07/2019 [facility] [place] Comment on above: Daily until disconti nued starting 09/07/2019 [facility] 4X Daily (AC & HS) u ntil discontinued starting 09/07/2019 As Needed until disc ontinued starting 09/06/2019 As Needed until disc ontinued starting 09/07/2019 As Needed until disc ontinued starting 09/08/2019 Tissue Culture Tissue Culture Microbiology Routine 09/06/2019 8:39 PM EST [facility]- [place], [place] Immunizations Immunization Date Immunization Notes Care Provider Fa ange 08-04-2022 Influenza, Seasonal, Quadrivalent, Adjuvanted Hermilo Thorne MD Work Phone: [facility] 08-04-2022 influenza virus vaccine, unspecified formulation [facility] Work Phone: 09-16-2021 influenza, injectabl e, quadrivalent, preservative free Hermilo Thorne MD Work Phone: [facility] 07-09-2020 influenza, injectabl e, quadrivalent, preservative free Hermilo Thorne MD Work Phone: [facility] Healthcare Payers Date Payer Category Payer Unknown [id number] 2022 Medicaid [id number] 2022 Unknown 2022 Self-pay 2019 Private Health Insurance [facility] MEDICARE SUPP xxxxxxxxxxx 2019-Present [phone] [address] [place] [address] xxxxxxxxxxx [id number] 2018 Medicare MEDICARE MEDICAR E PART A AND B xxxxxxxxxx 2018-Present [phone] [address] [address] [place] [address] xxxxxxxxxx [id number]. [id number] 2018 Medicare [id number] 2018 Medicare [id number]. 1.13.647.2. [id number] 1959 Medicaid [id number] 1959 Medicare [id number] 1959 Private Health Insurance [id number] 1959 Unknown [id number] 1953 Unknown [id number] 2.16.840.1.200684.3.579.2. 175 1953 Unknown [id number] 2.16.840.1.279210.3.579.2. 593 1953 Unknown [id number] 2.16.840.1.134322.3.579.2. 593 1953 Unknown [id number] 2.16.840.1.507452.3.579.2. 593 1953 Unknown [id number] 2.16.840.1.482024.3.579.2. 593 1953 Unknown [id number] 2.16.840.1.069321.3.579.2. 593 1953 Unknown [id number] 2.16.840.1.196315.3.579.2. 593 1953 Unknown [id number] 2.16.840.1.709008.3.579.2. 593 1953 Unknown [id number] 2.16.840.1.825835.3.579.2. 593 1953 Unknown [id number] 2.16.840.1.948187.3.579.2. 718 1953 Unknown [id number] 2.16.840.1.237562.3.579.2. 718 1953 Unknown [id number] 2.16.840.1.543725.3.579.2. 718 1953 Unknown [id number] 2.16.840.1.426362.3.579.2. 718 1953 Unknown [id number] 2.16.840.1.408463.3.579.2. 718 1953 Unknown [id number] 2.16.840.1.037362.3.579.2. 718 1953 Unknown [id number] 2.16.840.1.347314.3.579.2. 718 1953 Unknown [id number] 2.16.840.1.453695.3.579.2. 1953 Unknown [id number] 2.16.840.1.138193.3.579.2. 8 1953 Unknown [id number] 2.16.840.1.879060.3.579.2. 1953 Unknown [id number] 2.16.840.1.235078.3.579.2. 1953 Unknown [id number] 2.16.840.1.897030.3.579.2. 1953 Unknown [id number] 2.16.840.1.111388.3.579.2. 1953 Unknown [id number] 2.16.840.1.403802.3.579.2. 1953 Unknown [id number] 2.16.840.1.065779.3.579.2. 1953 Unknown [id number] 2.16.840.1.751351.3.579.2. 8 1953 Unknown [id number] 2.16.840.1.097747.3.579.2. 8 1953 Unknown [id number] 2.16.840.1.651438.3.579.2. 1067 1953 Unknown [id number] 2.16.840.1.175978.3.579.2. 356 1953 Unknown [id number] 2.16.840.1.638122.3.579.2. 356 1953 Unknown [id number] 2.16.840.1.594407.3.579.2. 356 1953 Unknown [id number] 2.16.840.1.312744.3.579.2. 1244 1953 Unknown [id number] 2.16.840.1.773073.3.579.2. 1243 1953 Unknown [id number] 2.16.840.1.694011.3.579.2. 1243 1953 Unknown [id number] 2.16.840.1.497922.3.579.2. 1245 1953 Unknown [id number] 2.16.840.1.285987.3.579.2. 1245 1953 Unknown [id number] 2.16.840.1.907727.3.579.2. 1245 1953 Unknown [id number] 2.16.840.1.610637.3.579.2. 1245 1953 Unknown [id number] 2.16.840.1.799416.3.579.2. 1245 1953 Unknown [id number] 2.16.840.1.373140.3.579.2. 1245 1953 Unknown [id number] 2.16.840.1.094729.3.579.2. 1245 1953 Unknown [id number] 2.16.840.1.264614.3.579.2. 1245 1953 Unknown [id number] 2.16.840.1.507593.3.579.2. 1245 1953 Unknown [id number] 2.16.840.1.760698.3.579.2. 1245 1953 Unknown [id number] 2.16.840.1.631559.3.579.2. 1245 1953 Unknown [id number] 2.16.840.1.892631.3.579.2. 1245 1953 Unknown [id number] 2.16.840.1.005179.3.579.2. 1245 1953 Unknown [id number] 2.16.840.1.500900.3.579.2. 1246 1953 Unknown [id number] 2.16.840.1.329734.3.579.2. 1245 1953 Unknown [id number] 2.16.840.1.768145.3.579.2. 1245 1953 Unknown [id number] 2.16.840.1.444735.3.579.2. 1245 1953 Unknown [id number] 2.16.840.1.097404.3.579.2. 1245 1953 Unknown [id number] 2.16.840.1.298744.3.579.2. 1245 1953 Unknown [id number] 2.16.840.1.206296.3.579.2. 1245 1953 Unknown [id number] 2.16.840.1.365483.3.579.2. 1245 1953 Unknown [id number] 2.16.840.1.471060.3.579.2. 1245 1953 Unknown [id number] 2.16.840.1.138410.3.579.2. 1245 1953 Unknown [id number] 2.16.840.1.152901.3.579.2. 1245 1953 Unknown [id number] 2.16.840.1.702986.3.579.2. 1245 1953 Unknown [id number] 2.16.840.1.712193.3.579.2. 1245 1953 Unknown [id number] 2.16.840.1.856365.3.579.2. 1245 1953 Unknown [id number] 2.16.840.1.047784.3.579.2. 1245 1953 Unknown [id number] 2.16.840.1.932650.3.579.2. 727 1953 Unknown [id number] 2.16.840.1.530309.3.579.2. 727 1953 Unknown [id number] 2.16.840.1.857438.3.579.2. 727 1953 Unknown [id number] 2.16.840.1.710374.3.579.2. 727 1953 Unknown [id number] 2.16.840.1.041997.3.579.2. 727 1953 Unknown [id number] 2.16.840.1.503355.3.579.2. 727 1953 Unknown [id number] 2.16.840.1.905252.3.579.2. 727 1953 Unknown [id number] 2.16.840.1.674677.3.579.2. 727 1953 Unknown [id number] 2.16.840.1.705272.3.579.2. 727 1953 Unknown [id number] 2.16.840.1.211308.3.579.2. 727 1953 Unknown [id number] 2.16.840.1.597617.3.579.2. 727 Unknown [id number] 2.16.840.1.883088.3.579.2. 531 Unknown Dima REARDON/BS HUONG [id number] Social History Date Type Detail Facility Start[facility]-09-[facility] [place] Start: 09-09-2019 End: 10-21-2023 Cigarettes smoked current (pack per day) - Reported [place] Comment on above: 1 cup daily; quit 10/2022, smoked X 50 years; Start: 09-09-2019 Alcohol intake Lifetime non-d emanuel (finding) [place] Start: 09-07-2019 History SDOH Alcohol Frequency 1 Nat [facility] Start: 09-07-2019 Tobacco Comment currently quit ting, now 5 cigs/day [facility] Start: 1955 Sex Assigned At Not on file M мар[facility]: 1955 Sex Assigned At Male [facility] Start: 09-16-2023 End: 10-21-2023 Sex Assigned At [facility] Start: 12-21-2022 Tobacco smoking status Heavy t obacco smoker (finding) [facility] Comment on above: 1.5 ppd. Has not smo ked since October 03, 2022 Tobacco quit this month Tobacco Use:. [facility] Comment on above: unknown. unable to a ssess at this time. Tobacco smoking status No Smokin g Status Entered [facility] Start: 02-11-2023 End: 09-16-2023 Tobacco smoking status Ex-smoker (finding) [facility] Comment on above: unknown. unable to a ssess at this time. Tobacco smoking status Never [facility] Comment on above: unknown. unable to a ssess at this time. Tobacco smoking stat NHIS Tobacco smoking consumption unknown [facility] Work Phone: Start: 07-06-2023 End: 07-16-2023 Exposure to SARS-CoV-2 (event) Unable to assess [facility] End: 10-05-2022 History of tobacco use Current smoker [facility] Work Phone: End: 10-05-2022 History of tobacco use Cigarette Smoker [facility] Work Phone: Start: 03-18-2023 End: 09-16-2023 Tobacco use and exposure Smokeless tobacco non-user [facility] Work Phone: Start: 09-16-2023 End: 10-21-2023 Alcohol intake Ex-drinker (finding) [facility] Work Phone: Start: 09-06-2023 End: 10-21-2023 Exposure to SARS-CoV-2 (event) Not sure [facility] Functional Status Date Assessment Result Facility 12-25-2023 Functional Status N/A [facility] 03-26-2023 Functional Status No [facility] 02-13-2023 Functional Status N/A [facility] 02-13-2023 Functional Status [facility] 02-11-2023 Functional Status No [facility] 01-22-2023 Functional Status N/A [facility] 01-22-2023 Functional Status [facility] 12-21-2022 Functional Status N/A [facility] 12-20-2022 Functional Status [facility] Clinical Notes 03-25-2022 to 10-21-2023 Geovani Mack MD - 10/21/2023 12:45 PM ESTPatient InstructionsGeovani Mack MD - 09/16/2023 12:30 PM ESTPatient Alexis Mack MD - 04/06/2023 3:30 PM EDT [...] prepare this document. documented in this encounter [facility] Work Phone: 10-21-2023 Instructions Palak Aleman [...] requested at the time of your visit. IPalak RN am scribing for and in the presence of Dr. Geovani Mack MD documented in this encounter [facility] Work Phone: 09-16-2023 History of Present illness Narrative CARDIOLOGY OFFICE VISIT CHIEF COMPLAINT Chief Complaint Patient presents with Follow-up 4 month [facility] HISTORY OF PRESENT ILLNESS HPI 67-year-old male [...] prepare this document. documented in this encounter [facility] Work Phone: 09-16-2023 Instructions Emelia Noriega [...] GEOVANI MACK MD documented in this encounter [facility] Work Phone: 04-06-2023 Note Pre-procedure Verifi [...] Findings: grossly normal anatomy Procedure performed by: nd Rn Telehealth(s): none Estimated Blood Loss (mL): none Specimen: [...] of infection. The patient should call the bridge operator immediately if symptoms recur, or for any [...] of the loop recorder and final settings (Medtronic Linq 2 MRI compatible RLB [id number]) Tolerance: good Complications: None Attestation: Note Completion: Attending AttestationI performed the procedure without a resident Electronic Signatures: Geovani Mack) (Signed 06-Apr-2023 17:47) Authored: Pre-procedure Verification and Time Out, General Information, Procedure Details, Note Completion Last Updated: 06-Apr-2023 17:47 by Geovani Mack) [facility] 04-06-2023 Note History & Physical [...] Last Updated: 06-Apr-2023 17:46 by Geovani Mack) [facility] 04-06-2023 History and physical note [...] Last Updated: 06-Apr-2023 17:46 by Geovain Mack) [facility] Work Phone: 04-06-2023 History and physical [...] Last Updated: 06-Apr-2023 17:46 by Geovani Mack) documented in this encounter [facility] Work Phone: 02-14-2023 [facility] Comment on above: Result Comment: Elec tronically [...] Mahesh Lema MD Within 2 weeks [address] [place] [phone] Additional Instructions: HERMILO THORNE MD Within 2 to 4 days [address] [place] [address]- Additional Instructions: Extracted from: Title:Consult Note Author:Mahesh Lema MD te:02/13/23 1. Syncope (R55: Syncope and collapse) [...] diabetes mellitus without complications) 4. CAD in [place] artery (I25.10: Atherosclerotic heart disease of [place] coronary artery without angina pectoris) 5. A-fib [...] Polyneuropathy, unspecified) Addendum by Torey LEMONS, Dick terra Johns on February 13, 2023 11:13:15 EDT [...] s/p stents on Plavix (received stents in [place] around 10 years ago per patient), chronic diastolic heart failure, hypertension, hyperlipidemia, chronic GERD, obesity, chronic anemia presented on 01/20/[facility] from [facility] with syncope. Syncope/unresponsiveness Bradycardia Frequent episodes of [...] made to ensure accuracy, however, inadvertently computerized patient registration rep mistakes may be present. Extracted from: Title:ED [...] Scheduled Provider:Zia LEMONS, Jaja Dash [facility] [place] Appointment Type:Cardiology Follow Up (FT) [facility]05[facility]12[facility]:Result Comment: Electronically Signed By: Eboni LEMONS, John White\.br\Date and Time Signed: 02/13/23 12:34 [id number] Hospital Discharge instructions Follow Up Care 02/13/2023 00:22:57 With:Mahesh Lema MD Address: [address] [place] [address]- [phone] When:2 weeks With:HERMILO THORNE MD Address: [address] [place], [place] [id number]- When:2 to 4 days [facility]04-30-2023 [facility] HospitalComment on above:Result Comment: Electronically Signed By: Stephan QUINN MD\.br\Date and Time Signed: 02/01/23 10:52 [id number] Evaluation + Plan noteExtracted from: Title:Discharge Note Author:Stephan QUINN MD Date: 01/26/23 Discharge To, Anticipated II - Intermediate Care/ECF Discharged to - shelter unit Transported by, Anticipated - Family Discharge [...] SubCutaneous, qWeek With When Contact Information Mahesh Torey Within 1 to 2 weeks [address] [place] [address]- [phone] Business (1) Additional Instructions: HERMILO THORNE Within 3 to 5 days [address] [place] [address]- Business (1) Additional Instructions: Lilia Castanon MD, NEU Within 2 to 4 weeks [facility] [address] [place] [address]- Additional Instructions: Extracted from: Title:APSO Note- Neurology [...] (I48.91: Unspecified atrial fibrillation) 3. CAD in [place] artery (I25.10: Atherosclerotic heart disease of [place] coronary artery without angina pectoris) 4. Dementia [...] from: Title:APSO Note-neurology Author:Tobin GONZALEZ Dinesh ole Date:01/25/23 The patient is a 67-year-old male [...] (I48.91: Unspecified atrial fibrillation) 3. CAD in [place] artery (I25.10: Atherosclerotic heart disease of [place] coronary artery without angina pectoris) 4. Dementia [...] (I48.91: Unspecified atrial fibrillation) 3. CAD in [place] artery (I25.10: Atherosclerotic heart disease of [place] coronary artery without angina pectoris) 4. Dementia [...] (E78.5: Hyperlipidemia, unspecified) Extracted from: Title:Consult Note-neurology Author:Tobin GONZALEZ, N ichole Date:01/23/23 The patient is a 67-year-old [...] (I48.91: Unspecified atrial fibrillation) 3. CAD in [place] artery (I25.10: Atherosclerotic heart disease of [place] coronary artery without angina pectoris) 4. Dementia [...] s/p stents on Plavix (received stents in [place] around 10 years ago per patient), chronic diastolic heart failure, hypertension, hyperlipidemia, chronic GERD, obesity, chronic anemia presented on 01/20/23 from jail with syncope. Syncope Concerns for seizures given history from jail Patient mentioned he has chronic syncope for [...] made to ensure accuracy, however, inadvertently computerized patient registration rep mistakes may be present. Dr. John Lyn Hospitalist Addendum by Eboni LEMONS, Lucinda White on January 23, 2023 10:25:32 EDT Patient [...] Date:02/11/2023 11:00:00 AM Scheduled Provider:Bushra JIMENEZ CNP Location:[facility] Appointment Type:Cardiology Inpatient Follow Up (FT) Appointment Date:04/02/2023 11:00:00 AM Scheduled Provider:Starr Oneal DO Location:[facility] [place] Appointment Type:Cardiology Follow Up (FT) Diagnostic Tests Pending * Cortisol 01/26/23 [facility]04-21-2023 [facility]Result Comment: Electronically Signed By: Eboni LEMONS, John White\.br\Date and Time Signed: 01/23/23 10:25 [id number] NoteAttempted PT Evaluation. Spoke to nursing who requested to Hold this date. [facility] Hospital Discharge instructions Follow Up Care 01/22/2023 00:29:48 With:Mahesh Lema Address: [address] [place] [phone] Business (1) When:1 to 2 weeks With:HERMILO THORNE Address: [address] [place] [address]- Business (1) When:3 to 5 days With:Lilia Castanon MD, NEU Address: [facility] [address] [place] [address]- When:2 to 4 weeks [facility]04-18-2023 [facility]Result Comment: Electronically Signed By: John Lyn MD\.br\Date and Time Signed: 01/20/23 14:29 [id number] [facility] Comment on above:Result Comment: Electronically Signed By: Ayaan NAQVI MD\.br\Date and Time Signed: 01/17/23 17:06 [id number] Hospital Discharge instructions Patient Education 12/25/2022 12:28:46 Syncope, Zprz-od-Baic Syncope Syncope is when you pass out [...] pee (urine) pale yellow. General instructions Take lsjy-wxd-hplogsq and prescription medicines only as told by [...] 03/09/2009 Document Revised: 11/03/2018 Document Reviewed: 11/03/2018 [employer] Patient Education 2020 [employer]. Follow Up Care 12/20/2022 23:06:47 With:Call [phone] to schedule 30 event monitro placement. Address:Unknown When: Unknown With:Bushra JIMENEZ Address: [address] [place] [phone] Business (1) When:5 to 7 days With:HERMILO THORNE Address: [address] [place] [address]- Business (1) When:2 to 4 days With:Lg LEMONS, KAREN Hernandez Address: [facility] [address] [place] [address]- When:2 to 4 weeks [facility]03-22-2023 Evaluation + Plan noteExtracted from: Title:Progress/SOAP Note Author:Tiff JIMENEZ CNP Date:12/24/22 1. Unresponsive episode (R41 .89: Other symptoms and signs involving cognitive functions and awareness) 1. Unspecified atrial fibrillation, (I48.91: Unspecified atrial fibrillation)Atrial fibrillation with slow ventricular response Given history of atrial fibrillation, he should be anticoagulated given his high [id number] score. However, if he continues to have [...] discharge. 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 3. History of seizures (Z87.898: Personal history of other specified conditions) 4. Coronary artery disease (I25.10: Atherosclerotic heart disease of [place] coronary artery without angina pectoris) 5. Hypertension [...] consultation with Dr. Cedeno for pacemaker placement to see today in re: Eliquis/Plavix and ?pacer or not. 12 lead pending this AM Follow-up cardiac echo shows EF 60% Obtain medication records-from [facility] pending. 3. History of seizures (Z87.898: Personal history of other specified conditions) Place on seizure precautions. Keppra 750 twice daily Will obtain records from his recent hospitalization at [facility] to determine prior work-up and further past medical history. EEG normal. 4. Cor onary artery disease (I25.10: Atherosclerotic heart disease of [place] coronary artery without angina pectoris) Patient did [...] the 50s Troponins negative Was seen by solar sales rep who recommended to decrease Coreg to 3.125 [...] obtain records from his recent hospitalization at [facility] to determine prior work-up and further past medical history. EEG 4. Coronary artery disease (I25.10: Atherosclerotic heart disease of [place] coronary artery without angina pectoris) Patient did [...] artery disease (I25.10: Atherosclerotic heart disease of [place] coronary artery without angina pectoris) 5. Hypertension [...] to ensure accuracy , however, inadvertently computerized patient registration rep mistakes may be present . Addendum by [...] echo Observe on telemetry Obtain medication records-from [facility] pending. 3. History of seizures (Z87.898: Personal history of other specified conditions) Place on seizure precautions. Keppra 750 twice daily Will obtain records from his recent hospitalization at [facility] to determine prior work-up and further past medical history. EEG normal. 4. Cor onary artery disease (I25.10: Atherosclerotic heart disease of [place] coronary artery without angina pectoris) Patient did [...] defecation outpatient follow-up Extracted from: Title:Progress/SOAP Note Author:Torey LEMONS, Dick Johns Date:12/22/22 1. Unresponsive episode (R41 .89: Other symptoms and signs involving cognitive functions and awareness) 1. Unspecified atrial fibrillation, (I48.91: Unspecified atrial fibrillation)Atrial fibrillation with slow ventricular response 3. History of seizures (Z87.898: Personal history of other specified conditions) 4. Coronary artery disease (I25.10: Atherosclerotic heart disease of [place] coronary artery without angina pectoris) It is [...] trying to obtain old records from his solar sales rep to determine if he still requires Plavix [...] artery disease (I25.10: Atherosclerotic heart disease of [place] coronary artery without angina pectoris) 5. Hypertension [...] (E66.9: Obesity, unspecified) Extracted from: Title:Consult Note Author:Torey LEMONS, Mahesh Martinez te:12/21/22 1. Unresponsive episode (R41 .89: Other [...] to obtain. He cannot recall having a solar sales rep and there is nothing in the computer [...] artery disease (I25.10: Atherosclerotic heart disease of [place] coronary artery without angina pectoris) 5. Hypertension [...] (E66.9: Obesity, unspecified) Extracted from: Title:Consult Note-neurology Author:James Rudd RN ichole Date:12/21/22 The patient is a 67-year-old male with a history of Progressive dementia, hypertension, hyperlipidemia, diabetes mellitus, with recent covert infection, who was admitted to the hospital for Episode of unresponsiveness at the extended care facility due to possible seizure. I [...] artery disease (I25.10: Atherosclerotic heart disease of [place] coronary artery without angina pectoris) 5. Hypertension [...] functions and awareness) Patient was transferred [facility] from [place] after an unwitnessed fall being found facedown. Patient was seen by the trauma services ,CT imaging of the head and chest demonstrated no traumatic injury. Patient at present is responsive and is denying any localized pain. Patient was described as, both at the [facility] and at this facility, despite a sternal rub having no response. He became responsive when patient had an IO placed in his left proximal humerus to gain immediate access for institution of medications. His Jeanerette Coma Scale increased from a 3 to an 11. Patient was not noted on presentation to be hypotensive nor hypoxic. Patient was not described as being hypotensive or hypoxic at the [facility] after being found at approximately 10 PM. [...] bradycardic when he was unresponsive at the [facility]) will observe for any hemodynamically significant tachycardia. Will obtain further history both from the [facility] facility in regards to a similar event that occurred 3 days prior where he was reported to have been immediately responsive and her daughter showed up in the room. Ordered: Communication Order EEG 2. Atrial fibrillation with slow ventricular response (I48.91: Unspecified atrial fibrillation) External pharmacy report suggest patient is on carvedilol, await confirmation of meds from the [facility]. We will hold carvedilol or any other agents that have negative chronotropic effects. Observe on telemetry Ordered: TSH With T4fr Reflex 3. History of seizures (Z87.898: Personal history of other specified conditions) Place on seizure precautions. Continue Keppra. Will obtain records from his recent hospitalization at [facility] to determine prior work-up and further past medical history. Obtain in light of above an EEG Ordered: EEG 4. Coronary artery disease (I25.10: Atherosclerotic heart disease of [place] coronary artery without angina pectoris) Patient did have an abnormal EKG with interventricular conduction delay, T wave abnormalities in V3 through V6 but we have no prior tracings to compare. In light of above we will cycle cardiac enzymes, observe on telemetry and if patient remains hospitalized through Thursday consider an echocardiogram. Obtain records from [facility] which likely will include an ECG to determine baseline Ordered: Communication Order 5. Hypertension (I10: Essential (primary) hypertension) Await confirmation of medications from the [facility] and doses. We will avoid medications that had negative chronotropic effects. Monitor blood pressure 6. Hyperlipidemia (E78.5: Hyperlipidemia, unspecified) External pharmacy report suggest patient was on pravastatin await confirmation of meds 7. Diabetes (E11.9: Type 2 diabetes mellitus without complications) [facility] facility describes patient is having significant fluctuations in blood sugar. External pharmacy report suggest Basaglar, Trulicity, glyburide and metformin await confirmation of meds. Cover with Humalog sliding scale and observe for any 8. History of CHF (congestive heart failure) (Z86.79: Personal history of other diseases of the circulatory system) Per the [facility] while at [facility] last month. Will obtain records. It [...] until further records can be obtained from [facility]. Avoid nephrotoxins 10. Anemia (D64.9: Anemia, unspecified) Patient's hemoglobin of 11 is very similar to the last hemoglobin available at the [facility] from 24 October where it was 10.8. [...] based on examination and succussion with the [facility] staff that he is at baseline 14. History of COVID-19 (Z86.16: Personal history of COVID-19) Obtain records from his recent hospitalization at [facility]. Patient is having no respiratory symptoms, [...] Left + Pelvis XR Shoulder Complete Left [facility]12-28-2022 Evaluation note* Encounter Date Diagnosis Assessment Notes [...] fracture: adult home care material was printed [facility] Other 12-14-2022 Note [id number]#1.00[facility]10-20-2022 [id number]#1.00[facility] 06-05-2022 [facility]06-21-2022 History of Present illness Narrative * 67-year-old [...] software was utilized to prepare this document. [facility] [address] DO Work Phone: Chief complaint Narrative - ReportedPatient here for EP consultation per Dr. Lee [facility] [facility] Work Phone: Evaluation + Plan note Future Appointments Appointment Date:04/02/2023 11:00:00 AM Scheduled Provider:Starr Oneal DO [facility] App[facility] Type:Cardiology Follow [facility] (FT) [facility] Future Appointments Appointment Date:03/26/2023 10:15:00 AM Scheduled Provider:Jaja Lee MD Location:[facility] Appointment Type:Cardiology [facility] (FT[facility] Future Appointments Appointment Date:06/25/2023 03:15:00 PM Scheduled Provider:Jaja Lee MD Location:[facility] Appointment Type:Cardiology Follow Up (FT) [facility] noteNo assessment information available [facility] Work Phone: Evaluation note* Diagnosis Status post placement of implantable loop recorder Syncope and collapse [facility] Work Phone: [phone] note* Diagnosis Status post placement of implantable loop recorder Syncope and collapse documented in this encounter [facility] Work Phone: [phone] note* Diagnosis Status post placement of implantable loop recorder Syncope and collapse documented in this encounter [facility] Work Phone: [phone] note* Diagnosis Syncope and collapse documented in this encounter [facility] Work Phone: [phone] note* Diagnosis Anticoagulation management encounter- Primary Encounter for therapeutic drug monitoring Abnormal EKG Nonspecific abnormal electrocardiogram (ECG) (EKG) Longstanding persistent atrial fibrillation (CMS/HCC) Primary hypertension Unspecified essential hypertension Palpitations Status post placement of implantable loop recorder BMI 34.0-34.9,adult Former smoker Personal history of tobacco use, presenting hazards to health documented in this encounter [facility] Work Phone: [phone] note* Diagnosis Presence of other cardiac implants and grafts Syncope and collapse documented in this encounter [facility] Work Phone: [phone] note* Diagnosis Status post placement of implantable loop recorder Syncope and collapse documented in this encounter [facility] Work Phone: [phone] note* Diagnosis Status post placement of implantable loop recorder Syncope and collapse documented in this encounter [facility] Work Phone: [phone] note* Diagnosis Abnormal EKG- Primary Nonspecific abnormal electrocardiogram (ECG) (EKG) Former smoker Personal history of tobacco use, presenting hazards to health Status post placement of implantable loop recorder Syncope and collapse Longstanding persistent atrial fibrillation (CMS/HCC) Anticoagulation management encounter Encounter for therapeutic drug monitoring Palpitations BMI 30.0-30.9,adult High risk medication use Bradycardia Other specified cardiac dysrhythmias documented in this encounter [facility] Work Phone: [phone] note* Diagnosis Status post placement of implantable loop recorder documented in this encounter [facility] Work Phone: [phone] note* Diagnosis Status post placement of implantable loop recorder Syncope and collapse documented in this encounter [facility] Work Phone: Evaluation note* Diagnosis Status post placement of implantable loop recorder Syncope and collapse documented in this encounter [facility] Work Phone: Evaluation note* Diagnosis Status post placement of implantable loop recorder Syncope and collapse documented in this encounter [facility] Work Phone: History general Narrative - Reported* Type Description Date Medical History htn Medical History DM Medical History hypercholesterolemia Medical History staph infection Medical History h/o atrial fibrillation Surgical History left knee arthroscopy Surgical History [facility] Hospitalization History see above [facility] Other Hospital course Narrative No data available for this section [facility] No data available for this section [facility] No data available for this section [facility] Discharge Instructions * Instructions* Machelle Rosario RN - 09/10/2019 GENERAL POST-OPERATIVE PATIENT INSTRUCTIONS FOLLOW-UP: Please make an appointment with your physician in {NUMBER:[phone]} {TIME PERIOD:9075}. Call your physician immediately if [...] to call your physician or the hospital data conversion operator if you have any questions, and they will be glad to assist you. documented in this encounter History of Present Illness * Kristyn Nevarez, PT - 09/10/2019 2:08 PM EST Physical Therapy Facility/Department: [address] ORTHO/MED SURG Initial Assessment NAME: Otilio [...] of left knee replacement, Hyperlipidemia, Hypertension, and AK (myocardial infarction) (HCC). 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 Additional Comments: pt reported able to assist [...] AM-PAC Inpatient Mobility Raw Score : 18 (09/10/191401) AM-PAC Inpatient T-Scale Score : 43.63 (09/10/191401) Mobility Inpatient CMS 0-100% Score: 46.58 (09/10/191401) Mobility Inpatient CMS G-Code Modifier : CK [...] Minutes Kristyn Nevarez PT * Juanita Paula Terra, OT - 09/10/2019 1:05 PM EST Occupational [...] Diabetes mellitus type 2, insulin dependent ([facility]), H/O repair of rotator cuff, History of appendectomy, History of left knee replacement, Hyperlipidemia, Hypertension, and AK (myocardial infarction) ([facility]). 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 Additional Comments: pt reported able to assist [...] Plan Times per week: 3-4x/wk AM-PAC Score AM-PAC Inpatient Daily Activity Raw Score: 20 (09/10/19 1303) AM-PAC Inpatient ADL T-Scale Score : 42.03 (09/10/19 130) ADL Inpatient CMS 0-100% Score: 38.32 (09/10/19 1303) ADL Inpatient CMS G-Code Modifier : CJ (09/10/19 130) Goals [...] Group Co-treatment Time In 0857 Time Out 0916 Minutes 19 Juanita Paula [...] INTAKE/OUTPUT: Intake/Output Summary (Last 24 hours) at 09/10/2019 06 Last data filed at 09/10/2019 06 Gross [...] Patient's name: Otilio Suarez Patient's account/billing number: [id number] Patient's Date of : 1955 Age: 63 [...] Suarez is a 63 y.o. transfer from [facility] for concern of left leg abscess/ necrotizing faciitis. Patient states he noticed an abscess on his left leg last which has progressed. He says the pain became worse which prompted his ED visit. At [facility] his [facility] scan was remarkable for [...] floor. Trupti Cohen MD Internal Medicine Resident [facility] 09/09/2019 2:36 PM * Kathie Mckeon RN [...] Signing PT agrees with treatmentand documentation. * Trupti Cohen MD - 09/09/2019 8:04 AM EST Critical Care Team - Daily Progress Note Date and time: 09/09/2019 8:04 AM Patient's name: Otilio Suarez Patient's account/billing number: [id number] Patient's Date of : 1955 Age: 63 [...] [P.O.:480; I.V.:474] Out: 1625 [Urine:1625] Net since admission:+0786 Patient Vitals for the past 96 hrs [...] Femoral [] Right Subclavian [] Left Subclavian RIVERA'S CATHETER: [x] No [] Yes (Date of [...] Laboratory findings: Complete Blood Count: Recent Labs 09/07/1945009/08/19 0421 09/09/19 0433 WBC 14.6* 9.6 8.6 HGB 11.6* 11.0* 11.7* HCT 34.4* 34.8* 34.8* PLT 131* 210 248 Last 3 Blood Glucose: Recent Labs 09/07/191 09/08/19 0421 09/09/19 0433 GLUCOSE 225* 111* 181* PT/INR: No results found for: PROTIME, INR PTT: No results found for: APTT, PTT Comprehensive Metabolic Profile: Recent Labs 09/06/19 2221 09/07/191 09/08/19 0421 09/09/19 0433 NA 132* 132* 137 137 K 4.3 [...] PROPHYLAXIS: Stress ulcer: [] PPI Agent [] [id number] [] Sucralfate [x] Other:not indicated VTE: [] [...] resident, Department of Internal Medicine/ Critical care [facility]) 09/09/2019, 8:04 AM Associated attestation - Jeri Lion MD - 09/09/2019 7:19 PM EST Attending Physician Statement I have discussed the case of Otilio Suarez, including pertinent history and exam findings with the resident/fellow/SHIPPING INSPECTOR/PA. I have seen and examined the patient and the anderson elements of the encounter have been performed by me. I agree with the assessment, plan and orders as documented by the resident/fellow/SHIPPING INSPECTOR/PA With changes made to the note [...] Jeri Lion 09/09/2019 7:18 PM * Frances Moreno, DO - 09/09/2019 5:54 AM EST General [...] has not had a bowel movement since and is only occasionally passing flatus.Per RN [...] Questions answered/consent signed & witnessed. * Chela Villagomez OT - 09/08/2019 3:41 PM EST [facility] Occupational Therapy Not Seen Note DATE: [...] Next Scheduled Treatment: Will ck post op, 09/09/09/10 as appropriate/able Chela Villagomez OT * Trupti Cohen MD - 09/08/2019 12:19 PM EST Critical Care Team - Daily Progress Note Date and time: 09/08/2019 12:20 PM Patient's name: Otilio Suarez Patient's account/billing number: [id number] Patient's Date of : 1955 Age: 63 [...] Femoral [] Right Subclavian [] Left Subclavian RIVERA'S CATHETER: [] No [x] Yes (Date of [...] Laboratory findings: Complete Blood Count: Recent Labs 09/06/19222009/07/1945009/08/19420 WBC 14.3* 14.6* 9.6 HGB 11.8* 11.6* 11.0* HCT 36.0* 34.4* 34.8* PLT 160 131* 210 Last 3 Blood Glucose: Recent Labs 09/06/19222009/07/1945009/08/19 0421 GLUCOSE 293* 225* 111* PT/INR: No results found for: PROTIME, INR PTT: No results found for: APTT, PTT Comprehensive Metabolic Profile: Recent Labs 09/06/19222009/07/1945009/08/19 0421 NA 132* 132* 137 K 4.3 4.4 [...] PROPHYLAXIS: Stress ulcer: [] PPI Agent [] [id number] [] Sucralfate [x] Other:not indicated VTE: [] [...] trial:na Bowel management:milk of mag Indwelling catheter:d/c gee, PIV 2 Trupti Cohen M.D. Critical care resident, Department of Internal Medicine/ Critical care [facility]) 09/08/2019, 12:20 PM Associated attestation - Jeri Lion MD - 09/08/2019 10:33 PM EST Attending Physician Statement I have discussed the case of Otilio Suarez, including pertinent history and exam findings with the resident/fellow/SHIPPING INSPECTOR/PA. I have seen and examined the patient and the anderson elements of the encounter have been performed by me. I agree with the assessment, plan and orders as documented by the resident/fellow/SHIPPING INSPECTOR/PA With changes made to the note [...] cannula Anemia stable Improving renal function Discontinue Rivera catheter Patient to have surgery tomorrow On [...] was obtained and placed in patient chart. ES * Frances Moreno, - 09/08/2019 6:04 AM EST General Surgery: [...] prior to dressing changes 7. Recommend discontinue rivera catheter today 8. Continue abx therapy: Levaquin, [...] Patient's name: Otilio Suarez Patient's account/billing number: [id number] Patient's Date of : 1955 Age: 63 [...] Date 09/07/19 0000 - 09/07/19 2359 Shift [id number] 6905-0188 8650-5166 24 Hour Total INTAKE P.O.(mL/kg/hr) 240(0.2) 240 [...] ABGs: No results found for: PHART, PH, TSZ0WQO, PCO2, PO2ART, PO2, EEH9HOH, HCO3, BEART, BE, THGBART, THB, JIV3RWP, J6ZGPLNR, O2SAT, FIO2 Lactic Acid: Lab Results Component Value Date LACTChandler NOT REPORTED 09/06/2019 DATA: Complete Blood Count: Recent Labs 09/06/19222009/07/19450 WBC 14.3* 14.6* HGB 11.8* 11.6* MCV 90.9 86.9 PLT 160 131* RBC 3.96* 3.96* HCT 36.0* 34.4* MCH 29.8 29.3 MCHC 32.8 33.7 RDW 11.9 12.0 MPV 12.0 12.8 PT/INR: No results found for: PROTIME, INR PTT: No results found for: APTT, PTT Basal Metabolic Profile: Recent Labs 09/06/19222009/07/19450 NA 132* 132* K 4.3 4.4 BUN [...] hours. Last 3 Blood Glucose: Recent Labs 09/06/19222009/07/19450 GLUCOSE 293* 225* HgBA1c: No results found for: LABA1C TSH: No results found for: TSH ANEMIA STUDIES No results for input(s): LABIRON, TIBC, FERRITIN, OZQQSYQS86, FOLATE, OCCULTBLD in the last 72 hours. [...] CRP 237.9 - Afebrile MSK/ ORTHO: n/a PT/OT/CODE NUMBER STAMPER: - Evaluation and treatment when applicable DISPO: [...] 9. Ulcer prophylaxis []? PPI Agent []? I7Twgfp []? Sucralfate []? Other: 10. Glycemic control high dose sliding scale 11. Spontaneous breathing trial na 12. Bowel regimen/urine output adequate 13. Indwelling catheter/lines iv 14. De-escalation none Sanjay Reilly M.D. Department of Internal Medicine/ Critical care [facility]) 09/07/2019, 6:03 PM Associated attestation - Jeri Lion MD - 09/07/2019 7:07 PM EST Attending Physician Statement I have discussed the case of Otilio Suarez, including pertinent history and exam findings with the resident/fellow/SHIPPING INSPECTOR/PA. I have seen and examined the patient and the anderson elements of the encounter have been performed by me. I agree with the assessment, plan and orders as documented by the resident/fellow/SHIPPING INSPECTOR/PA With changes made to the note [...] Type 2 Diabetes _x__ Be safe with [place] teaching sheet / [facility] Disposal of Household Generated Sharps _x__ Type 2 Diabetes and Adding Insulin fold out with survival skills Contact number provided. Refer to Patient Education activity for more details. DARIELA STEINBERG RN CDE * Bee Bunch, DO - 09/07/2019 6:14 AM EST General [...] Intake/Output Summary (Last 24 hours) at 09/07/2019 0614 Last data filed at 09/07/2019 0400 Gross [...] tighter glycemic control. Start diet. * Benigno Crenshaw RPH - 09/06/2019 11:27 PM EST Pharmacy Note Vancomycin Consult Otilio Suarez is a 63 y.o. male started on Vancomycin for septic shock; consult received from Dr. Rocky Wray to manage therapy. Also receiving the following antibiotics: Levaquin/Cleocin. Patient Active Problem List Diagnosis Septic shock (HCC) Allergies: Pcn [penicillins] Temp max: 97.9 Recent Labs 09/06/19 2221 BUN 34* Recent Labs 09/06/19 222 CREATININE 1.22* Recent Labs 09/06/192220 WBC 14.3* Intake/Output Summary (Last 24 hours) at 09/06/20192325 Last data filed at 09/06/2019 2130 Gross [...] Coronary atherosclerosis of unspecified type of vessel, [place] or graft History of alcohol abuse Nondependent [...] FoundDocuments on File Type Date Recorded Patient Transportation Department Supervisor Expl anation Advance Directives and Living Will Power of Export Manager Latest Code Status on File Code Status Date Activated Date Inactivated Comments Full Code 09/06/2019 5:58 PM Advance Directive Response Recorded Date/ Time Advance Directives No September 5:47pm Documents on File Type Date Recorded Patient Transportation Department Supervisor Expl anation Healthcare Power of Atty 04/06/2023 9:33 AM Healthcare Power of Atty 04/06/2023 Documents on File Type Date Recorded Patient Transportation Department Supervisor Expl anation Healthcare Power of Atty 04/06/2023 [...] Referral Specialty Diagnoses / Procedures Referred By Contac t Referred To Contact Diagnoses Syncope and collapse Procedures ECG 12 Lead Geovani Mack MD [address] [facility] [address], [address] [place] [address] Referral ID Status Reason Start Date Expiration Date V isits Requested Visits Authorized [id number] Authorized 10/21/2023 10/20/2024 1 1 Specialty Diagnoses / Procedures Referred By Contac t Referred To Contact Cardiology Diagnoses Presence of other cardiac implants and grafts Syncope and collapse Procedures Cardiac device check - In Clinic Geovani Mack MD [address] [facility], [address] [address] Referral ID Status Reason Start Date Expiration Date Visits Requested Visits Authorized [id number] Pending Review Perform Procedure 06/24/2023 12/21/2023 1 1 Specialty Diagnoses / Procedures Referred By Contac t Referred To Contact Diagnoses Abnormal EKG Procedures ECG 12 Lead Geovani Mack MD [address] [facility], [address] [address] Referral ID Status Reason Start Date Expiration Date V isits Requested Visits Authorized [id number] Pending Review 09/16/2023 09/15/2024 1 1 Specialty Diagnoses / Procedures Referred By Contac t Referred To Contact Cardiology Diagnoses Status post placement of implantable loop recorder Procedures Cardiac Device Check - In Clinic Geovani Mack MD [address] [facility], [address] [address] Referral ID Status Reason Start Date Expiration Date Visits Requested Visits Authorized [id number] Pending Review Perform Procedure 3 09/15/2024 52 52 Specialty Diagnoses / Procedures Referred By Contac t Referred To Contact Cardiology Diagnoses Status post placement of implantable loop recorder Syncope and collapse Procedures Cardiac Device Check - Remote Geovani Mack MD [address] [facility], [address] [address] Referral ID Status Reason Start Date Expiration Date Visits Requested Visits Authorized [id number] Pending Review Perform Procedure 3 01/11/2024 52 52 Additional Source Comments Reason for Visit (unrecogniz ed section and content) Status Reason Specialty Diagnoses / Procedures Referre d By Contact Referred To Contact Diagnoses Septic shock (HCC) Septic Shock 2nd to Left Thigh abscess Jeri Lion MD [address] [facility] [address] [place] [address] [facility] Specialty Diagnoses / Procedures Referred By Contac t Referred To Contact Cardiology Diagnoses Status post placement of implantable loop recorder Syncope and collapse Procedures Cardiac Device Check - Remote Geovani Mack MD [address] [facility], [address] [place] [address] Referral ID Status Reason Start Date Expiration Date Visits Requested Visits Authorized [id number] Pending Review Perform Procedure 01/11/2024 52 52 Reason Comments Other [facility] LOOP RECORD ER IMPLANT/ICD-10 Syncope and collapse Reason Comments Follow-up 4 month [facility] Specialty Diagnoses / Procedures Referred By Contac t Referred To Contact Cardiology Diagnoses Presence of other cardiac implants and grafts Syncope and collapse Procedures Cardiac device check - In Clinic Geovani Mack MD [address] [facility], [address] [address] Referral ID Status Reason Start Date Expiration Date Visits Requested Visits Authorized [id number] Pending Review Perform Procedure 06/24/2023 12/21/2023 1 1 Referral ID Status Reason Start Date Expiration Date V isits Requested Visits Authorized [id number] Closed Perform Procedure 07/15/2023 01/11/2024 52 52 Reason Comments Follow-up 4 weeks Specialty Diagnoses / Procedures Referred By Contac t Referred To Contact Diagnoses Syncope and collapse Procedures ECG 12 Lead Geovani Mack MD [address] [facility], [address] [place] [address] Referral ID Status Reason Start Date Expiration Date V isits Requested Visits Authorized [id number] Authorized 10/21/2023 10/20/2024 1 1 Specialty Diagnoses / Procedures Referred By Contac t Referred To Contact Cardiology Diagnoses Status post placement of implantable loop recorder Procedures Cardiac Device Check - In Clinic Geovani Mack MD [address] [facility], [facility] [address] [place] [address] Referral ID Status Reason Start Date Expiration Date Visits Requested Visits Authorized [id number] Pending Review Perform Procedure 3 09/15/2024 52 52 Specialty Diagnoses / Procedures Referred By Kathy farris Referred To Contact Cardiology Diagnoses Status post placement of implantable loop recorder Syncope and collapse Procedures Cardiac Device Check - Remote Geovani Mack MD [address] [facility] [address] [place] [address] (unrecognized sect ion and content) No Status Records FoundNo Status Records FoundNo Status Records FoundNo Status Records FoundNo Status Records FoundNo Status Records FoundNo Status Records FoundNo Status Records FoundNo Status Records FoundNo Status Records Found INFORMATION SOURCE (unrecogn ized section and content) DATE CREATED AUTHOR 09/13/2019 [facility] DATE CREATED AUTHOR AUTHOR'S ORGANIZ ATION 10/04/2022 [facility] DATE CREATED AUTHOR AUTHOR'S ORGANIZ ATION 02/14/2023 [facility] DATE CREATED AUTHOR AUTHOR'S ORGANIZ ATION 03/25/2023 [employer] DATE CREATED AUTHOR AUTHOR'S ORGANIZ ATION 05/07/2023 [facility] DATE CREATED AUTHOR AUTHOR'S ORGANIZ ATION 06/25/2023 [facility] DATE CREATED AUTHOR AUTHOR'S ORGANIZ ATION 10/17/2023 [facility] DATE CREATED AUTHOR AUTHOR'S ORGANIZ ATION 10/23/2023 [facility] DATE CREATED AUTHOR AUTHOR'S ORGANIZ ATION 12/27/2023 [facility] DATE CREATED AUTHOR AUTHOR'S ORGANIZ ATION 12/28/2023 [facility] Care Teams (unrecognized sec tion and content) Team Status: Inactive Member Role Status Dates Bernie Guerra MD Primary Care Provider Active Ana Norris APRN Attending Provider Active Team Status: Active Member Role Status Dates Bernie Guerra MD Primary Care Provider Active [employer] Relationship Specialty Start Date End Date Hermilo Thorne MD [address] [place] [address] [address] [place] [address] PCP - General 03/24/23 [employer] Relationship Specialty Start Date End Date Hermilo Thorne MD [address] [place] [address] PCP - General 03/24/23 [employer] Developer Relationship Specialty Start Date End Date Hermilo Thorne MD [address] [place] [address] PCP - General 03/24/23 [employer] Developer Relationship Specialty Start Date End Date Hermilo Thorne MD [address] [place] [address] PCP - General 03/24/23 [employer] Developer Relationship Specialty Start Date End Date Hermilo Thorne MD [address] [place] [address] PCP - General 03/24/23 [employer] Developer Relationship Specialty Start Date End Date Hermilo Thorne MD [address] [place] [address] PCP - General 03/24/23 Geovani Mack MD [address] [facility] [address] [place] [address] Consulting Physician Cardiology 09/16/23 [employer] Developer Relationship Specialty Start Date End Date Hermilo Thorne MD [address] [place] [address] PCP - General 03/24/23 Geovani Mcak MD [address] [facility] [address] [place] [address] Consulting Physician Cardiology 09/16/23 [employer] Developer Relationship Specialty Start Date End Date Hermilo Thorne MD [address] [facility] [address] [place] [address] PCP - General 03/24/23 Geovani Mack MD [address] [facility], [facility] [address] [place] [address] Consulting Physician Cardiology 09/16/23 [employer] Developer Relationship Specialty Start Date End Date Hermilo Thorne MD [address] [address] PCP - General 03/24/23 Geovani Mack MD [address] [facility], [facility] [address] [place] [address] Consulting Physician Cardiology 09/16/23 Nelda Jc, supplemental managerSupervisor Pairing And Inspecting 10/15/23 [employer] Developer Relationship Specialty Start Date End Date Hermilo Thorne MD [address] [address] PCP - General 03/24/23 Geovani Mack MD [address] [facility], [facility] [address] [place] [address] Consulting Physician Cardiology 09/16/23 Nelda Jc, supplemental managerSupervisor Pairing And Inspecting 10/15/23 [employer] Developer Relationship Specialty Start Date End Date Bernie Guerra MD [address] [place] [address] PCP - General Pediatrics 03/16/23 [employer] Developer Relationship Specialty Start Date End Date Hermilo Thorne MD [address] [place] [address] PCP - General 03/24/23 Geovani Mack MD [address] [place] [address] Consulting Physician Cardiology 09/16/23 [employer] Developer Relationship Specialty Start Date End Date Hermilo Thorne MD [address] [place] [address] PCP - General 03/24/23 Geovani Mack MD [address] [facility] [address] [place] [address] Consulting Physician Cardiology 09/16/23 [employer] Developer Relationship Specialty Start Date End Date Hermilo Thorne MD [address] [facility] [address] [place] [address] PCP - General 03/24/23 Geovani Mack MD [address] [facility] [address] [place] [address] Consulting Physician Cardiology 09/16/23 Goals (unrecognized section and content) Goals may [...] BE BASED ON THE PRIMARY CLINICAL RECORDS. [facility]. provides no warranty or guarantee of the accuracy or completeness of information in this document.
[2023-12-30 07:08] LABS: Basophils Percent Auto 0.5 % (0.2-2.0); Eosinophils Absolute Auto 0.3 10^3/uL (0.0-0.7); Eosinophils Percent Auto 5.6 % (0.9-7.0); Hematocrit 34.7 % (42.0-54.0); Hemoglobin 10.5 g/dL (14.0-18.0); Immature Granulocytes Abs Auto 0.02 10^3/uL (0.00-0.03); Immature Granulocytes Pct Auto 0.3 % (0.0-0.5); Lymphocytes Absolute Auto 2.2 10^3/uL (1.2-3.8); Lymphocytes Percent Auto 38.6 % (20.5-60.0); Mean Corpuscular HGB Conc 30.3 g/dL (29.9-35.2); Mean Corpuscular Hemoglobin 28.5 pg (25.9-34.0); Monocytes Absolute Auto 0.4 10^3/uL (0.3-0.8); Monocytes Percent Auto 7.5 % (1.7-12.0); Neutrophils Absolute Auto 2.7 10^3/uL (1.4-6.5); Neutrophils Percent Auto 47.5 % (43.0-75.0); Platelet Count 199 10^3/uL (150-450); Red Blood Count 3.69 10^6/uL (4.70-6.10); Red Cell Distribution Width 14.3 % (11.0-15.0); White Blood Count 5.8 10^3/uL (4.0-11.0)
[2023-12-30 07:48] LABS: Anion Gap 14.1; BUN Creatinine Ratio 17.4; Calcium 8.1 mg/dL (8.5-10.1); Chloride 109 mmol/L (98-107); Estimated GFR (African America >60 (>=60); Estimated GFR (Non-African Ame 59 (>=60); Glucose 187 mg/dL (74-106); Potassium 4.1 mmol/L (3.5-5.1); Sodium 144 mmol/L (136-145)
== END 2023-12-30 02:07 | disposition home or self-care (01) ==
LOC: LAB 02:06
PROVIDERS: PCP Family Medicine; Visit Provider Family Medicine
DX: I11.0 Hypertensive heart disease with heart failure (principal); I50.43 Acute on chronic combined systolic (congestive) and diastolic (congestive) heart failure; I48.20 Chronic atrial fibrillation, unspecified; N28.9 Disorder of kidney and ureter, unspecified
CPT/HCPCS: 36415; 80048; 83880; 85025

== ENCOUNTER 2024-01-06 02:35 | Outpatient (REF) | payer MEDICARE, MEDICAID, SELFPAY ==
--- OUTSIDE RECORDS SUMMARY | 2024-01-06 02:42 | XMS_ITS | CCD ---
Author Organization [facility] Care Team Providers [facility] Manager Name Role Phone Bernie Guerra Primary Care Provider [phone] JERI LION Admitting Unavailable ROSALIE WILDER Referring [...] [place] Consulting Unavailable CHAPO, VALE Consulting Unavailable [place], Rugen M Unavailable Bernie Guerra Attending Unavailable [...] Orozco Attending Unavailable Mohinder Orozco Admitting Unavailable Chralie, Bernie Arteaga Primary Care Unavailable Mohinder Orozco Attending Unavailable Mohinder Orozco Admitting Unavailable Charlie, Bernie Arteaga Primary Care Unavailable Reshma Matt Attending Unavailable Reshma Matt Admitting Unavailable Chralie, Bernie Arteaga Attending Unavailable Charlie, Mario Primary Care Unavailable Hue Monet Attending Unavailable Hue Monet Admitting Unavailable Charlie, Mario Primary Care Unavailable Charlie, Bernie Arteaga Attending Unavailable Charlie, Bernie Atreaga Primary Care Unavailable Charlie, Mario Attending Unavailable Charlie, Mario Primary Care Unavailable Charlie, Mario Primary Care Unavailable Charlie, Bernie Arteaga Attending Unavailable Wills, Kamran Attending Unavailable Wills, Kamran Admitting Unavailable Charlie, Bernie Arteaga Primary Care Unavailable Charlie, Bernie Arteaga Primary [...] Mack, Dr. Geovani Posada Referring Unavailab le [place], Dr. Hermilo Greco Primary Care Unavaila ble Mack, Dr. Geovani Posada Admitting Unavailab le Mack, Dr. Geovani Posada Attending Unavailab le [place] Hermilo LEMONS Primary Care Provider Hermilo Thorne MD Primary Care Provider Geovani Mack MD Unavailable GEOVANI MACK Attending Unavailable [place], Dr. Hermilo Greco Primary [facility] Unavaila ble MARTINA EGOVANI Attending Unavailable JAJA LEE Referring Unavailable [place], Dr. Hermilo Greco [facility] Unavaila ble Martinez GONZALEZ, Nelda Unavailable Unavailable MARTINA GEOVANI N Attending Unavailable HERMILO THORNE Primary Care Unavailable MARTINA GEOVANI N Attending Unavailable MATIHERMILO Arteaga Primary Care Unavailable MARTINA, GEOVANI N Referring Unavailable MARTINA GEOVANI N Attending Unavailable HERMILO THORNE Primary Care Unavailable Bernie Guerra MD Primary Care Provider Geovani Mack MD Unavailable [phone] STANG, Bushra L Attending Unavailable STANG, Bushra [...] Referring Unavailable Eboni, John S Admitting Unavailable [place], Lilia Consulting Unavailable Stephan QUINN Attending Unavailable [place], Lilia Consulting Unavailable [place], Lilia Consulting Unavailable [place], Lilia Consulting Unavailable [place], Lilia Consulting Unavailable [place], Lilia Consulting Unavailable [place], Lilia Consulting Unavailable [place], Lilia Consulting Unavailable [place], Lilia Consulting Unavailable Eboni, John S Attending Unavailable Eboni, John S Admitting Unavailable Mahesh LEMA Consulting Unavailable Mahesh LEMA Consulting Unavailable Mahesh LEMA Consulting Unavailable Eboni, John S Attending Unavailable [place], Lilia Consulting Unavailable Ayaan NAQVI Admitting Unavailable [place], Lilia Consulting Unavailable [place], Lilia Consulting Unavailable [place], Lilia Consulting Unavailable [place], Lilia Consulting Unavailable [place], Lilia Consulting Unavailable [place], Lilia Consulting Unavailable [place], Lilia Consulting Unavailable [place], Lilia Consulting Unavailable DO Tita Albright Attending Unavailable Harjit Doan Admitting Unavailable Jered Chavis Attending Unavailable ESTHER LÓPEZ Referring Unavailable MATI, RUGEN MABALAY Primary Care Unavailable MACK, GEOVANI N Admitting Unavailable MACK, GEOVANI N Attending Unavailable ESTHER LÓPEZ Referring Unavailable MATI, RUGEN MABALAY Primary Care Unavailable MACK, GEOVANI N Referring Unavailable MATI, RUGEN MABALAY Primary Care Unavailable MACK, GEOVANI N Referring Unavailable MATI, RUGEN MABALAY Primary Care Unavailable ESTHER LÓPEZ Referring Unavailable MATI, RUGEN MABALAY Primary Care Unavailable ESTHER LÓPEZ Referring Unavailable [...] Propensity to adverse reactions to drug 8 [place] (20 sources) HYDROmorphone; Translations: [hydromorphone] Drug Allergy 2 Unknown (qualifier value), Unknown [facility] (20 sources) Morphine; Translations: [morphine] Drug Allergy 2 Unknown (qualifier value), Unknown [facility] (10 sources) Penicillin; Translations: [penicillin] Drug Allergy 2 Unknown (qualifier value) [facility] (3 sources) HYDROmorphone; Translations: [Dilaudid] Drug Allergy 2 [facility] (1 source) Morphine Drug Allergy 2 [facility] (1 source) Penicillins; Translations: [Penicillins] Allergy to drug (finding) [place] [address] DO Work Phone: (1 source) Morphine Derivatives; Translations: [Morphine Derivatives] Allergy to drug (finding) [place] [address] DO Work Phone: (20 sources) Penicillins Drug Intolerance 8 Unknown [facility] Work Phone: (1 source) Penicillins Drug Intolerance 8 [facility] (1 source) ALLERGIES NOT ON FILE; Translations: [ALLERGIES NOT ON FILE] Propensity to adverse reactions (disorder) [facility] Rep[facility] Medications Current Medications Medication Drug Class(es) Dates Sig (Normalized) Sig (Original) acetaminophen 325 mg oral tablet (20 sources) Start: 12-25-2022 acetaminophen (Tylenol) 325 MG tablet every 4 (four) hours. 0 12/25/2022 Active Start: 12-25-2022 take 2 tablets by mo [facility] every six hours as needed for pain [...] Active docusate sodium 50 mg / sennosides, skilled nursing 8.6 mg oral tablet (1 source) Start: [...] tab Oral Active take [address] [facility] twice daily at mealtime glyBURIDE (DIABETA) 5 [...] Start: 12-25-2022 take 3 tablets by mo [facility] twice daily Keppra 250 mg Tab 750 [...] 0 08/04/2022 Active take [address] [facility] twice daily at mealtime metFORMIN XR (Glucophage-XR) 500 mg 24 hr tablet Take 2 tablets (1,000 mg) by mouth 2 times a day with meals. Do not crush, chew, or split. 0 Active take 2 tablets by mo [facility] twice daily metFORMIN HCl ER 500 MG [...] release tablet 5 mg polyethylene glycol 3350 92378 mg powder for oral solution (20 sources) [...] 7 days 0 10/21/2023 10/27/2023 Active sennosides, RETIREMENT (1 source) Senokot Active sodium chloride 0.154 [...] current use of drug therapy; Translations: [Other snf (current) drug therapy] Onset: 3 Episodic Other aftercare (3 sources) Encounter for therapeutic drug level monitoring; Translations: [ENC THERAPEUTC DRUG LEVL MONITORING] Onset: 3 Episodic Other aftercare (3 sources) Other snf (current) drug therapy; Translations: [OTH [facility] CURRENT DRUG THERAPY] Onset: 3 Episodic Other aftercare (1 source) custodial (current) use of insulin; Translations: [[facility] CURRENT USE OF INSULIN] Onset: 3 Episodic Other aftercare (3 sources) 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 churn buttermaker (current) use of anticoagulants; Translations: [[facility] CURRNT USE ANTICOAGULANTS] Onset: 3 Episodic Other aftercare (1 source) continuous churn buttermaker (current) use of antithrombotics/antipla telets; Translations: [[facility] ANTITHROMBOT/ANTIPLATLE TS] Onset: 3 Episodic Other aftercare (1 source) continuous churn buttermaker (current) use of aspirin; Translations: [[facility] CURRENT USE OF ASPIRIN] Onset: 3 Episodic Other aftercare (2 sources) Patient encounter status; Translations: [Encounter for therapeutic drug level monitoring] 09-16-2023 Episodic Other aftercare (1 source) Taking high risk medication; Translations: [Other snf (current) drug therapy] 10-21-2023 Episodic Other and [...] Onset: 10-09-2022 Episodic Other aftercare (1 source) custodial (current) use of oral hypoglycemic drugs; Translations: [[facility] USE ORAL HYPOGLYCEMIC DX] Onset: 10-14-2022 Episodic [...] Range Facility Physician Orderon 12-28-2023 Physician Order [id number]#1. 00TIFF Normal [facility] Ambulatory Visit Summaryon 0 12-25-2023 Ambulatory Visit Summary [facility] Cardiac Device Check - Remot amanda 12-25-2023 Radiology Study observation (narrative) [facility] Work Phone: [facility] Work Phone: ECG 12-Leadon 12-25-2023 ECG 12-Lead [id number]#1. 00TIFF Normal [facility] Outside Recordson 12-25-2023 Outside Records [id number]#1. 00TIFF [facility] Physician Orderon 12-25-2023 Physician Order [id number]#1. 00TIFF [facility] No Panel Informationon 12-17 Radiology Study observation (narrative) [facility] Work Phone: [facility] Work Phone: No Panel Informationon 12-03 Radiology Study observation (narrative) [facility] Work Phone: [facility] Work Phone: ALL CBC WITH AUTO DIFFon BASOPHILS ABSOLUTE AUTO 0.0 [facility] Basophils/100 WBC (Bld) 0.5 % 0.2 - 2.0 % [facility] Eosinophils/100 WBC (Bld) 5.4 % 0.9 - 7.0 % [facility] Erythrocyte distribution width (RBC) [Ratio] 13.6 % 11.0 - 15.0 % [facility] Hematocrit (Bld) [Volume fraction] 34.3 % Low 42.0 - 54.0 % [facility] Hemoglobin (Bld) [Mass/Vol] 10.5 g/dL Low 14.0 - 18.0 g/dL [facility] IMMATURE GRANULOCYTES ABS AUTO 0.02 [facility] Immature granulocytes/100 WBC (Bld) 0.3 % 0.0 - 0.5 % [facility] Interpretation and review of laboratory results Abnormal [facility] LYMPHOCYTES ABSOLUTE AUTO 2.4 [facility] Lymphocytes/100 WBC (Bld) 39.2 % 20.5 - 60.0 % [facility] MCH (RBC) [Entitic mass] 27.7 pg 25.9 - 34.0 pg [facility] MCHC (RBC) [Mass/Vol] 30.6 g/dL 29.9 - 35.2 g/dL [facility] MCV (RBC) [Entitic vol] 90.5 fL 80.0 - 94.0 fL [facility] MONOCYTES ABSOLUTE AUTO 0.5 [facility] Monocytes/100 WBC (Bld) 8.0 % 1.7 - 12.0 % [facility] NEUTROPHILS ABSOLUTE AUTO 2.9 [facility] Neutrophils/100 WBC (Bld) 46.6 % 43.0 - 75.0 % [facility] Platelet mean volume (Bld) [Entitic vol] 11.0 fL 9.5 - 13.5 fL [facility] TBH EO # 0.3 [facility] TBH PLT 232 [facility] TB RBC 3.79 Low [facility] TB WBC 6.1 [facility] ECG 12 Leadon 10-21-2023 EKG performed today shows sinus bradycardia left axis deviation incomplete right bundle branch block at a rate of 58 bpm QRS duration 110 ms QT greater than 167 ms. Rhythm strip shows the same pattern. [facility] Work Phone: Basic metabolic 2000 panelon 10-14-2023 Anion gap [Moles/Vol] 13 mmol/L Normal 10-20 [facility] Comment on above: Performed By: #### 3 4529-8 #### TARA NGO ([id number]) [facility] ([facility]) [address] [place] [address] 90868 Calcium [Mass/Vol] 8.1 mg/dL Low 8.6-10.3 [facility] Comment on above: Performed By: #### 3 4529-8 #### TARA NGO ([id number]) [facility] ([facility]) [address] [place] [address] 78992 Chloride [Moles/Vol] 101 mmol/L Normal 98-107 [facility] Comment on above: Performed By: #### 3 4529-8 #### TARA NGO ([id number]) [facility] ([facility]) [address] [place] [address] 27925 CO2 [Moles/Vol] 25 mmol/L Normal 21-32 [facility] Comment on above: Performed By: #### 3 4529-8 #### RACHELIBMIAH NGO ([id number]) [facility] ([facility]) [address] [place] [address] 15293 Creatinine [Mass/Vol] 1.17 mg/dL Normal 0.50-1.30 [facility] Comment on above: Performed By: #### 3 4529-8 #### RACHELIBMIAH NGO ([id number]) [facility] ([facility]) [address] [place] [address] 33416 Glomerular filtration rate/1.73 sq M.predicted 67 mL/min/1.73m*2 Normal >60 [facility] Comment on above: Result Comment: Calc ulations of estimated GFR are performed using the 2020 CKD-EPI Study Refit equation without the race variable for the IDMS-Traceable creatinine methods. https://jasn.asnjournals.org/content//ASN.28902 84544 Performed By: #### 3 4529-8 #### TARA NGO ([id number]) [facility] ([facility]) [address] [place] [address] 66886 Glucose [Mass/Vol] 161 mg/dL High 74-99 [facility] Comment on above: Performed By: #### 3 4529-8 #### TARA NGO ([id number]) [facility] ([facility]) [address] [place] [address] 74821 Potassium [Moles/Vol] 5.0 mmol/L Normal 3.5-5.3 [facility] Comment on above: Performed By: #### 3 4529-8 #### TARA NGO ([id number]) [facility] ([facility]) [address] [place] [address] 94492 Sodium [Moles/Vol] 134 mmol/L Low 136-145 [facility] Comment on above: Performed By: #### 3 4529-8 #### TARA NGO ([id number]) [facility] ([facility]) [address] [place] [address] 81217 Urea nitrogen [Mass/Vol] 31 mg/dL High 6-23 [facility] Comment on above: Performed By: #### 3 4529-8 #### TARA NGO ([id number]) [facility]) [address] [place] [address] 14362 ECG 12-LEADon 10-14-2023 ECG 12-LEAD Ventricular Rate 49 Atrial Rate 49 P-R Interval 136 QRS Duration 110 Q-T Interval 540 QTC Calculation(Bazett) 487 P [place] 6 R [place]omb -41 T [place] -29 QRS Count 8 Q Onset 226 P Onset 158 P Offset 202 T Offset 496 QTC Fredericia 504 Diagnosis Sinus bradycardia Left axis deviation ST & T wave abnormality, consider anterior ischemia Prolonged QT Abnormal ECG When compared with ECG of 14-OCT-2023 06:19, (unconfirmed) No significant change was found Confirmed by Sandra Plunkett ([id number]) on 10/16/2023 6:25:06 PM Normal [facility] ECG 12-LEAD Ventricular Rate 55 Atrial Rate 55 P-R Interval 156 QRS Duration 118 Q-T Interval 492 QTC Calculation(Bazett) 470 P [place] -5 R [place]omb -42 T [place] -26 QRS Count 9 Q Onset 209 P Onset 131 P Offset 187 T Offset 455 QTC Fredericia 478 Diagnosis Sinus bradycardia Left axis deviation Nonspecific intraventricular conduction delay T wave abnormality, consider anterolateral ischemia Prolonged QT Abnormal ECG When compared with ECG of 13-OCT-2023 23:48, (unconfirmed) No significant change was found Confirmed by Sandra Plunkett ([id number]) on 10/16/2023 6:16:04 PM Normal [facility] ECG 12-LEAD Ventricular Rate 68 Atrial Rate 68 P-R Interval 158 QRS Duration 110 Q-T Interval 436 QTC Calculation(Bazett) 463 P [place] 67 R [place] -47 T [place] -24 QRS Count 11 Q Onset 211 [...] Plunkett ([id number]) on 10/15/2023 7:03:42 AM Normal [facility] Glucose Test strip manual (B ld) [Mass/Vol]on 10-14-2023 Glucose [Mass/Vol] 120 mg/dL High 74-99 [facility] Comment on above: Performed By: #### 3 4529-8 #### TARA NGO ([id number]) [facility]) [address] [place] [address] 65800 Glucose [Mass/Vol] 138 mg/dL High 74-99 [facility] Comment on above: Performed By: #### 3 4529-8 #### TARA NGO ([id number]) [facility] ([facility]) [address] [place] [address] 50050 Magnesiumon 10-14-2023 Magnesium [Mass/Vol] 1.79 mg/dL Normal 1.60-2.40 [facility] Comment on above: Performed By: #### 3 4529-8 #### TARA NGO ([id number]) [facility] ([facility]) [address] [place] [address] 01113 Basic metabolic 2000 panelon 10-13-2023 Anion gap [Moles/Vol] 11 mmol/L Normal 10-20 [facility] Comment on above: Performed By: #### 2 4321-2 #### TARA NGO ([id number]) [facility] ([facility]) [address] [place] [address] 74461 Calcium [Mass/Vol] 8.6 mg/dL Normal 8.6-10.3 [facility] Comment on above: Performed By: #### 2 4321-2 #### TARA NGO ([id number]) [facility] ([facility]) [address] [place] [address] 08707 Chloride [Moles/Vol] 102 mmol/L Normal 98-107 [facility] Comment on above: Performed By: #### 2 4321-2 #### TARA NGO ([id number]) [facility] ([facility]) [address] [place] [address] 25571 CO2 [Moles/Vol] 29 mmol/L Normal 21-32 [facility] Comment on above: Performed By: #### 2 4321-2 #### TARA NGO ([id number]) [facility]) [address] [place] [address] 87263 Creatinine [Mass/Vol] 1.06 mg/dL Normal 0.50-1.30 [facility] Comment on above: Performed By: #### 2 4321-2 #### TARA NGO ([id number]) [facility] ([facility]) [address] [place] [address] 98384 Glomerular filtration rate/1.73 sq M.predicted 76 mL/min/1.73m*2 Normal >60 [facility] Comment on above: Result Comment: Calc ulations of estimated GFR are performed using the 2020 CKD-EPI Study Refit equation without the race variable for the IDMS-Traceable creatinine methods. https://jasn.asnjournals.org/content/early//ASN.13682 28181 Performed By: #### 2 4321-2 #### TARA NGO ([id number]) [facility]) [address] [place] [address] 13651 Glucose [Mass/Vol] 73 mg/dL Low 74-99 [facility] Comment on above: Performed By: #### 2 4321-2 #### TARA NGO ([id number]) [facility] ([facility]) [address] [place] [address] 86156 Potassium [Moles/Vol] 4.1 mmol/L Normal 3.5-5.3 [facility] Comment on above: Performed By: #### 2 4321-2 #### TARA NGO ([id number]) [facility]) [address] [place] [address] 65028 Sodium [Moles/Vol] 138 mmol/L Normal 136-145 [facility] Comment on above: Performed By: #### 2 4321-2 #### TARA NGO ([id number]) [facility]) [address] [place] [address] 95997 Urea nitrogen [Mass/Vol] 29 mg/dL High 6-23 [facility] Comment on above: Performed By: #### 2 4321-2 #### TARA NGO ([id number]) [facility]) [address] [place] [address] ECG 12-LEADon 10-13-2023 ECG 12-LEAD Ventricular Rate 75 Atrial Rate 75 P-R Interval 172 QRS Duration 112 Q-T Interval 390 QTC Calculation(Bazett) 435 P [place] 57 R [place] -54 T [place] -12 QRS Count 13 Q Onset 211 P Onset 125 P Offset 189 T Offset 406 QTC Fredericia 419 Diagnosis Normal sinus rhythm Left axis deviation Nonspecific T wave abnormality Abnormal ECG When compared with ECG of 13-OCT-2023 07:16, (unconfirmed) Sinus rhythm has replaced Atrial flutter ST no longer depressed in Anterior leads Confirmed by Sandra Plunkett ([id number]) on 10/16/2023 6:05:45 PM Normal [facility] ECG 12-LEAD Ventricular Rate 109 Atrial Rate 227 QRS Duration 102 Q-T Interval 362 QTC Calculation(Bazett) 487 R Macomb -73 T Macomb 7 QRS Count 18 Q Onset 212 T Offset 393 QTC Fredericia 441 Diagnosis Atrial flutter with variable AV block Left axis deviation Nonspecific ST abnormality Abnormal ECG When compared with ECG of 12-OCT-2023 23:14, (unconfirmed) No significant change was found Confirmed by Sandra Plunkett ([id number]) on 10/16/2023 2:09:21 PM Normal [facility] ECG 12-LEAD Ventricular Rate 117 Atrial Rate 117 P-R Interval 178 QRS Duration 98 Q-T Interval 332 QTC Calculation(Bazett) 463 R [place] -69 T [place]omb 33 QRS Count 19 Q Onset 214 P Onset 125 P Offset 185 T Offset 380 QTC Fredericia 415 Diagnosis Atrial flutter with 2 to 1 block Left axis deviation Incomplete right bundle branch block Nonspecific ST abnormality Abnormal ECG When compared with ECG of 12-OCT-2023 14:40, No significant change was found Confirmed by Sandra Plunkett ([id number]) on 10/15/2023 7:02:20 AM Normal [facility] Glucose Test strip manual (B ld) [Mass/Vol]on 10-13-2023 Glucose [Mass/Vol] 178 mg/dL High 74-99 [facility] Comment on above: Performed By: #### 3 4529-8 #### TARA NGO ([id number]) [facility]) [address] [place] [address] 69385 Glucose [Mass/Vol] 232 mg/dL High 74-99 [facility] Comment on above: Performed By: #### 3 4529-8 #### TARA NGO ([id number]) [facility]) [address] [place] [address] 68841 Glucose [Mass/Vol] 101 mg/dL High 74-99 [facility] Comment on above: Performed By: #### 3 4529-8 #### TARA NGO ([id number]) [facility]) [address] [place] [address] 98913 Glucose [Mass/Vol] 97 mg/dL Normal 74-99 [facility] Comment on above: Performed By: #### 3 4529-8 #### TARA NGO ([id number]) [facility]) [address] [place] [address] 14025 Glucose [Mass/Vol] 147 mg/dL High 74-99 [facility] Comment on above: Performed By: #### 2 341-6 #### TARA NGO ([id number]) [facility]) [address] [place] [address] 83344 Glucose [Mass/Vol] 66 mg/dL Low 74-99 [facility] Comment on above: Performed By: #### 2 341-6 #### TARA NGO ([id number]) [facility]) [address] [place] [address] 22409 Magnesiumon 10-13-2023 Magnesium [Mass/Vol] 1.79 mg/dL Normal 1.60-2.40 [facility] Comment on above: Performed By: #### 1 9123-9 #### TARA NGO ([id number]) [facility]) [address] [place] [address] 96317 TRANSESOPHAGEAL ECHO (JASMYNE)on 10-13-2023 TRANSESOPHAGEAL ECHO (JASMYNE) [place] [address] TRANSESOPHAGEAL ECHOCARDIOGRAM REPORT Patient Name: OTILIO Murry SUAREZ Reading Physician: [id number] Dana Mas MD Study Date: 10/13/2023 Ordering Provider: [id number] ESTHER Debbie MRN/PID: [id number] Fellow: Nurse: Raine Griffiths RN Date of /Age: 1 1955 Ad Writer: Katherin Cope RCS years Gender: M Additional Staff: Height: 187.96 cm Admit Date: 10/12/2023 Weight: 107.05 kg Admission Status: Inpatient - Routine BSA: 2.33 m2 [facility] Blood Pressure: 140 /78 mmHg Study Type: TRANSESOPHAGEAL ECHO (JASMYNE) Diagnosis/ICD: Unspecified atrial fibrillation-I48.91 Indication: A-FIB CPT Codes: JASMYNE Complete-91153; Moderate Sedation Services initial 15 minutes patient >5 years-12299 Study Detail: The following Echo studies were [...] RV Syst Pressure: 26.0 mmHg (< 30mmHg) [id number] Dana Mas MD Electronically signed on 10/13/2023 at 11:56:54 AM Final Normal [facility] CBC panel Auto (Bld)on 10-12 Erythrocyte distribution width (RBC) [Ratio] 13.9 % Normal 11.5-14.5 [facility] Comment on above: Performed By: #### 5 8410-2 #### TARA NGO ([id number]) [facility]) [address] [place] [address] 42843 Hematocrit (Bld) [Volume fraction] 36.9 % Low 41.0-52.0 [facility] Comment on above: Performed By: #### 5 8410-2 #### TARA NGO ([id number]) [facility]) [address] [place] [address] 82512 Hemoglobin (Bld) [Mass/Vol] 11.7 g/dL Low 13.5-17.5 [facility] Comment on above: Performed By: #### 5 8410-2 #### TARA NGO ([id number]) [facility]) [address] [place] [address] 16230 MCH (RBC) [Entitic mass] 28.1 pg Normal 26.0-34.0 [facility] Comment on above: Performed By: #### 5 8410-2 #### TARA NGO ([id number]) [facility] ([facility]) [address] [place] [address] 97453 MCHC (RBC) [Mass/Vol] 31.7 g/dL Low 32.0-36.0 [facility] Comment on above: Performed By: #### 5 8410-2 #### TARA NGO ([id number]) [facility]) [address] [place] [address] 30043 MCV (RBC) [Entitic vol] 89 fL Normal 80-100 [facility] Comment on above: Performed By: #### 5 8410-2 #### TARA NGO ([id number]) [facility] ([facility]C) [address] [place] [address] 77675 Nucleated RBC/100 WBC (Bld) [Ratio] 0.0 /100 WBCs Normal 0.0-0.0 [facility] Comment on above: Performed By: #### 5 8410-2 #### TARA NGO ([id number]) [facility] ([facility]) [address] [place] [address] 02960 Platelets (Bld) [#/Vol] 224 x10*3/uL Normal 150-450 [facility] Comment on above: Performed By: #### 5 8410-2 #### TARA NGO ([id number]) [facility] ([facility]) [address] [place] [address] RBC (Bld) [#/Vol] 4.17 x10*6/uL Low 4.50-5.90 [facility] Comment on above: Performed By: #### 5 8410-2 #### TARA NGO ([id number]) [facility] ([facility]) [address] [place] [address] WBC (Bld) [#/Vol] 10.7 x10*3/uL Normal 4.4-11.3 [facility] Comment on above: Performed By: #### 5 8410-2 #### TARA NGO ([id number]) [facility] ([facility]) [address] [place] [address] 46655 Comprehensive metabolic 2000 panelon 10-12-2023 Albumin BCP dye [Mass/Vol] 3.7 g/dL Normal 3.4-5.0 [facility] Comment on above: Performed By: #### 2 4323-8 #### TARA NGO ([id number]) [facility] ([facility]) [address] [place] [address] 98426 ALP [Catalytic activity/Vol] 61 U/L Normal 33-136 [facility] Comment on above: Performed By: #### 2 4323-8 #### TARA NGO ([id number]) [facility] ([facility]) [address] [place] [address] ALT With P-5'-P [Catalytic activity/Vol] 18 U/L Normal 10-52 [facility] Comment on above: Result Comment: Tracey ents treated with Sulfasalazine may generate falsely decreased results for ALT. Performed By: #### 2 4323-8 #### TARA NGO ([id number]) [facility] ([facility]) [address] [place] [address] Anion gap [Moles/Vol] 13 mmol/L Normal 10-20 [facility] Comment on above: Performed By: #### 2 4323-8 #### TARA NGO ([id number]) [facility] ([facility]) [address] [place] [address] 21396 AST With P-5'-P [Catalytic activity/Vol] 12 U/L Normal 9-39 [facility] Comment on above: Performed By: #### 2 432-8 #### TARA NGO ([id number]) [facility] ([facility]) [address] [place] [address] 82225 Bilirubin [Mass/Vol] 0.5 mg/dL Normal 0.0-1.2 [facility] Comment on above: Performed By: #### 2 4323-8 #### TARA NGO ([id number]) [facility] ([facility]) [address] [place] [address] 78665 Calcium [Mass/Vol] 8.9 mg/dL Normal 8.6-10.3 [facility] Comment on above: Performed By: #### 2 4323-8 #### TARA NGO ([id number]) [facility] ([facility]) [address] [place] [address] 98403 Chloride [Moles/Vol] 100 mmol/L Normal 98-107 [facility] Comment on above: Performed By: #### 2 4323-8 #### TARA NGO ([id number]) [facility] ([facility]) [address] [place] [address] CO2 [Moles/Vol] 29 mmol/L Normal 21-32 [facility] Comment on above: Performed By: #### 2 4323-8 #### TARA NGO ([id number]) [facility] ([facility]) [address] [place] [address] 76332 Creatinine [Mass/Vol] 1.00 mg/dL Normal 0.50-1.30 [facility] Comment on above: Performed By: #### 2 4323-8 #### TARA NGO ([id number]) [facility] ([facility]) [address] [place] [address] 05743 Glomerular filtration rate/1.73 sq M.predicted 81 mL/min/1.73m*2 Normal >60 [facility] Comment on above: Result Comment: Calc ulations of estimated GFR are performed using the 2020 CKD-EPI Study Refit equation without the race variable for the IDMS-Traceable creatinine methods. https://jasn.asnjournals.org/content//ASN.80970 43741 Performed By: #### 2 4323-8 #### TARA NGO ([id number]) [facility] ([facility]) [address] [place] [address] 32666 Glucose [Mass/Vol] 107 mg/dL High 74-99 [facility] Comment on above: Performed By: #### 2 4323-8 #### TARA NGO ([id number]) [facility] ([facility]) [address] [place] [address] 92388 Potassium [Moles/Vol] 3.7 mmol/L Normal 3.5-5.3 [facility] Comment on above: Performed By: #### 2 4323-8 #### RACHELIBMIAH NGO ([id number]) [facility] ([facility]) [address] [place] [address] 50078 Protein [Mass/Vol] 6.3 g/dL Low 6.4-8.2 [facility] Comment on above: Performed By: #### 2 4323-8 #### TARA NGO ([id number]) [facility] ([facility]) [address] [place] [address] Sodium [Moles/Vol] 138 mmol/L Normal 136-145 [facility] Comment on above: Performed By: #### 2 4323-8 #### RACHELIBMIAH NGO ([id number]) [facility] ([facility]) [address] [place] [address] Urea nitrogen [Mass/Vol] 33 mg/dL High 6-23 [facility] Comment on above: Performed By: #### 2 4323-8 #### TARA NGO ([id number]) [facility] ([facility]) [address] [place] [address] ECG 12-LEADon 10-12-2023 ECG 12-LEAD Ventricular Rate 112 Atrial Rate 112 P-R Interval 200 QRS Duration 108 Q-T Interval 348 QTC Calculation(Bazett) 475 R Macomb -61 T Macomb 41 QRS Count 18 Q Onset 211 [...] Mack ([id number]) on 10/12/2023 3:47:44 PM Normal [facility] ECG 12-LEAD Ventricular Rate 113 Atrial Rate 226 QRS Duration 104 Q-T Interval 340 QTC Calculation(Bazett) 466 P Macomb 259 R Macomb -58 T Macomb 9 QRS Count 19 Q Onset 211 [...] Mack ([id number]) on 10/12/2023 3:47:15 PM Normal [facility] Glucose Test strip manual (B ld) [Mass/Vol]on 10-12-2023 Glucose [Mass/Vol] 223 mg/dL High 74-99 [facility] Comment on above: Performed By: #### 2 341-6 #### TARA NGO ([id number]) [facility] ([facility]) [address] [place] [address] 42983 Magnesiumon 10-12-2023 Magnesium [Mass/Vol] 1.49 mg/dL Low 1.60-2.40 [facility] Comment on above: Performed By: #### 1 9123-9 #### TARA NGO ([id number]) [facility] ([facility]) [address] [place] [address] 03364 PT and aPTT panel Coag (PPP) on 10-12-2023 aPTT Coag (PPP) [Time] 29 s Normal 27-38 [facility] Comment on above: Order Comment: The A PTT is no longer used for monitoring Unfractionated Heparin Therapy. For monitoring Heparin Therapy, use the Heparin Assay. Performed By: #### 3 4529-8 #### TARA NGO ([id number]) [facility] ([facility]) [address] [place] [address] 34891 INR Coag (PPP) [Relative time] 1.1 Normal 0.9-1.1 [facility] Comment on above: Order Comment: The A PTT is no longer used for monitoring Unfractionated Heparin Therapy. For monitoring Heparin Therapy, use the Heparin Assay. Performed By: #### 3 4529-8 #### TARA NOG ([id number]) [facility] ([facility]) [address] [place] [address] 18166 PT Coag (PPP) [Time] 12.2 s Normal 9.8-12.8 [facility] Comment on above: Order Comment: The A PTT is no longer used for monitoring Unfractionated Heparin Therapy. For monitoring Heparin Therapy, use the Heparin Assay. Performed By: #### 3 4529-8 #### TARA NGO ([id number]) [facility] ([facility]) [address] [place] [address] TSH WITH REFLEX TO FREE T4 I F ABNORMALon 10-12-2023 TSH Qn 3.26 m[IU]/L Normal 0.44-3.98 [facility] Comment on above: Order Comment: TSH t esting is performed using different testing methodology at [facility] than at other [facility]. Direct result comparisons should only be made within the same method. Performed By: #### T HYDS #### TARA NGO ([id number]) [facility] ([facility]) [address] [place] [address] ED Note-Physicianon 10-08-19 ED Note-Physician Normal [facility] Comment on above: Result Comment: Elec tronically Signed By: Jered Chavis DO.br\Date and Time Signed: 10/07/23 23:11 EST Auto Diffon 10-07-2023 Basophils/100 WBC (Bld) 0.6 % Normal 0.0-2.0 [facility] Comment on above: Order Comment: Order Added by Discern Expert. Performed By: #### 2 985190, 3509041, 23584107, 7466415, 77700063, 6048138, 5881307, 81711292, 9892916 ####[facility] [address] [place] [address] Basophils/Leukocytes Auto (Bld) [Pure # fraction] 0.1 E9/L Normal 0.0-0.2 [facility] Comment on above: Order Comment: Order Added by Discern Expert. Performed By: #### 2 134932, 4499777, 02855096, 9473567, 01630615, 1725405, 9616420, 03158111, 0969850 ####[facility] [address] [place] [address] Eosinophils/100 WBC (Bld) 3.0 % Normal 0.0-8.0 [facility] Comment on above: Order Comment: Order Added by Discern Expert. Performed By: #### 2 566802, 9137634, 61938762, 3743880, 10607875, 3864332, 0286384, 67542280, 8124502 ####[facility] [address] [place] [address] Eosinophils/Leukocytes Auto (Bld) [Pure # fraction] 0.3 E9/L Normal 0.0-0.5 [facility] Comment on above: Order Comment: Order Added by Discern Expert. Performed By: #### 2 739485, 6615273, 09224192, 9612858, 50017446, 4532957, 6182630, 10887789, 6889443 ####[facility] [address] [place] [address] Lymphocytes/100 WBC (Bld) 25.2 % Normal 14.0-50.0 [facility] Comment on above: Order Comment: Order Added by Discern Expert. Performed By: #### 2 378950, 8151129, 63371675, 1411028, 16805949, 2025456, 1993828, 35293690, 9560820 ####[address] [place] [address] Lymphocytes/Leukocytes Auto (Bld) [Pure # fraction] 2.6 E9/L Normal 1.0-4.0 [facility] Comment on above: Order Comment: Order Added by Discern Expert. Performed By: #### 2 898364, 9181686, 90325107, 0343758, 24027007, 7794407, 1917790, 40571654, 4383994 ####[address] [place] [address] Monocytes/100 WBC (Bld) 4.7 % Normal 4.0-14.0 [facility] Comment on above: Order Comment: Order Added by Pearl Expert. Performed By: #### 2 118961, 3182935, 27555061, 8208495, 84979358, 9097024, 2296101, 04439085, 7859235 ####[facility] [address] [place] [address] Monocytes/Leukocytes Auto (Bld) [Pure # fraction] 0.5 E9/L Normal 0.2-1.0 [facility] Comment on above: Order Comment: Order Added by Discern Expert. Performed By: #### 2 153980, 8876732, 81939784, 5221780, 05412581, 3975992, 9763086, 73171005, 1549540 ####[facility] [address] [place] [address] Neutrophils/100 WBC (Bld) 66.5 % Normal 36.0-75.0 [facility] Comment on above: Order Comment: Order Added by Discern Expert. Performed By: #### 2 196507, 9615185, 52614432, 6932350, 98569225, 5955521, 5925197, 65509580, 3117638 ####[address] [place] [address] Neutrophils/Leukocytes Auto (Bld) [Pure # fraction] 6.8 E9/L Normal 2.0-7.5 [facility] Comment on above: Order Comment: Order Added by Discern Expert. Performed By: #### 2 830817, 0767792, 43626649, 1595277, 92520576, 0186329, 2006205, 63074161, 3738520 ####[facility] [address] [place] [address] BMPon 10-07-2023 Anion gap [Moles/Vol] 12 mmol/L Normal 6-16 [facility] Comment on above: Performed By: #### 2 244608, 4572938, 75518336, 5074886, 06982804, 9113808, 6993219, 69338808, 2996417 ####[facility] [address] [place] [address] BUN/Creat Ratio 26 No Units High 10-20 [facility] Comment on above: Performed By: #### 2 561648, 1197859, 91908937, 7710868, 10168616, 1131067, 7860284, 64589759, 8318782 ####[facility] [address] [place] [address] Calcium [Mass/Vol] 8.7 mg/dL Low 8.9-11.1 [facility] Comment on above: Performed By: #### 2 477440, 2714717, 59871659, 6685833, 61328115, 7881215, 2110863, 78002743, 4870049 ####[facility] [address] [place] [address] Chloride [Moles/Vol] 102 mmol/L Normal 101-111 [facility] Comment on above: Performed By: #### 2 597004, 4800028, 10860351, 9645910, 27248359, 4398229, 6344633, 79080471, 6186940 ####[facility] [address] [place] [address] CO2 [Moles/Vol] 28 mmol/L Normal 21-31 [facility] Comment on above: Performed By: #### 2 951767, 7995852, 87799379, 7807652, 89902018, 1259200, 5709717, 54523611, 8518984 ####[facility] [address] [place] [address] Creatinine [Mass/Vol] 0.9 mg/dL Normal 0.5-1.3 [facility] Comment on above: Performed By: #### 2 673617, 8114361, 55008125, 9951927, 77730173, 4394232, 1381595, 84806529, 2816936 ####[facility] [address] [place] [address] Glucose [Mass/Vol] 181 mg/dL Normal 55-199 [facility] Comment on above: Performed By: #### 2 809388, 2860492, 75659826, 3338903, 02136126, 7765533, 9975900, 26246107, 9750973 ####[facility] [address] [place] [address] Potassium [Moles/Vol] 4.4 mmol/L Normal 3.5-5.3 [facility] Comment on above: Performed By: #### 2 743643, 5367881, 01309624, 7154491, 97874556, 8852903, 8554613, 21489463, 0247661 ####[facility] [address] [place] [address] Sodium [Moles/Vol] 138 mmol/L Normal 135-145 [facility] Comment on above: Performed By: #### 2 971369, 1200870, 25949542, 2907803, 80992393, 6813792, 6245804, 54156538, 6420529 ####[facility] [address] [place] [address] Urea nitrogen [Mass/Vol] 23 mg/dL High 5-21 [facility] Comment on above: Performed By: #### 2 122226, 4088197, 14334787, 6631133, 59236762, 5743617, 5388624, 60223785, 6602354 ####[facility] [address] [place] [address] CBC w/ Auto Diffon Erythrocyte distribution width (RBC) [Ratio] 14.4 % High 10.9-14.2 [facility] Comment on above: Performed By: #### 2 885793, 5489492, 46994712, 1730868, 97196160, 5106453, 5992334, 59189819, 7802139 ####[facility] [address] [place] [address] Hematocrit (Bld) [Volume fraction] 37.5 % Low 37.7-49.0 [facility] Comment on above: Performed By: #### 2 808227, 2725456, 02552740, 7224281, 48344728, 1722283, 0558291, 47173117, 2795985 ####[facility] [address] [place] [address] Hemoglobin (Bld) [Mass/Vol] 12.1 g/dL Low 13.5-17.5 [facility] Comment on above: Performed By: #### 2 026411, 1917135, 54299447, 7147219, 50404238, 6915342, 7248177, 50387681, 7473372 ####[address] [place] [address] MCH (RBC) [Entitic mass] 27.4 pg Normal 27.0-34.0 [facility] Comment on above: Performed By: #### 2 507711, 9643704, 57004454, 0662099, 47357778, 3889277, 8745174, 81513494, 8187524 ####[address] [address] MCHC (RBC) [Mass/Vol] 32.1 g/dL Normal 31.4-36.0 [facility] Comment on above: Performed By: #### 2 500196, 1949893, 26313702, 6176032, 39690370, 7663070, 4386719, 77344350, 3367027 ####[address] [address] MCV (RBC) [Entitic vol] 85.3 fL Normal 80.0-100.0 [facility] Comment on above: Performed By: #### 2 267924, 1101061, 95930448, 4368838, 38693939, 3196529, 7574364, 02863720, 5212690 ####[address] [place] [address] Platelet mean volume (Bld) [Entitic vol] 8.3 fL Normal 6.4-10.8 [facility] Comment on above: Performed By: #### 2 727616, 6372884, 74579934, 0033375, 48260711, 2028712, 9261379, 90857317, 2892735 ####[facility] [address] [place] [address] Platelets (Bld) [#/Vol] 273.0 E9/L Normal 150.0-500.0 [facility] Comment on above: Performed By: #### 2 410525, 6110519, 53285534, 4161309, 01402075, 6387458, 9301854, 94836462, 9646340 ####[facility] [address] [place] [address] RBC (Bld) [#/Vol] 4.4 E12/L Normal 4.3-5.9 [facility] Comment on above: Performed By: #### 2 341622, 0625485, 64184250, 0365787, 52146364, 7829138, 0031584, 09978727, 8602199 ####[facility] [address] [place] [address] WBC corrected for nucl RBC Auto (Bld) [#/Vol] 10.3 E9/L Normal 4.0-11.0 [facility] Comment on above: Performed By: #### 2 812706, 0766139, 70301460, 7451600, 81378872, 8977810, 7776469, 22784239, 1674665 ####[facility] [address] [place] [address] Consent for Treatmenton Consent for Treatment [id number] 0TIFF Normal [facility] Discharge Instructionson Discharge Instructions [id number]#1.00 TIFF Normal [facility] ED Clinical Summaryon 2023 ED Clinical Summary Normal [facility]ameron [facility] ED Patient Education Noteon 10-07-2023 ED Patient Education Note Normal [facility] ED Patient Summaryon 024 ED Patient Summary Normal [facility] Hep Func Panelon 10-07-2023 Albumin [Mass/Vol] 3.6 g/dL Normal 3.3-5.0 [facility] Comment on above: Performed By: #### 2 805949, 6879695, 11889097, 3831582, 60529192, 2419425, 6095199, 83850160, 9608592 ####[facility] [address] [place] [address] Albumin/Globulin [Mass ratio] 1.4 {ratio} Normal 1.1-2.2 [facility] Comment on above: Performed By: #### 2 525061, 7333074, 61398146, 8681751, 39400198, 7967434, 6291403, 91931363, 4199178 ####[facility] [address] [place] [address] Alk Phos 62 Int._Unit/L Normal 21-98 [facility] Comment on above: Performed By: #### 2 801396, 5437624, 76479766, 9908584, 43739718, 6548066, 5935948, 02610883, 3463116 ####[facility] [address] [place] [address] ALT 13 Int._Unit/L Normal 6-46 [facility] Comment on above: Performed By: #### 2 081897, 1832340, 39896782, 2855280, 14972562, 4733033, 8921544, 56336105, 0773772 ####[facility] [address] [place] [address] AST 11 Int._Unit/L Normal 5-43 [facility] Comment on above: Performed By: #### 2 908262, 1683573, 01485788, 4292714, 02915335, 7885155, 6135462, 06185722, 6998907 ####[facility] [address] [place] [address] Bili Direct 0.1 mg/dL Normal 0.0-0.4 [facility] Comment on above: Performed By: #### 2 263963, 8826552, 93035414, 5743942, 79602143, 6871959, 0091936, 65848035, 4287328 ####[facility] [address] [place] [address] Bili Indirect 0.3 mg/dL Normal 0.1-0.9 [facility] Comment on above: Performed By: #### 2 760597, 1261261, 03620849, 1973961, 78994784, 6659937, 1446928, 27188178, 5240877 ####[facility] [address] [place] [address] Bili Total 0.4 mg/dL Normal 0.0-1.1 [facility] Comment on above: Performed By: #### 2 041989, 7038595, 06971001, 6317917, 17465981, 1821944, 4061751, 98061534, 8379344 ####[facility] [address] [place] [address] Globulin (S) [Mass/Vol] 2.5 g/dL Normal 1.4-4.0 [facility] Comment on above: Performed By: #### 2 424857, 1411515, 98847846, 2382587, 71658766, 3068318, 4128656, 58147576, 7222172 ####[facility] [address] [place] [address] Protein [Mass/Vol] 6.1 g/dL Normal 6.0-7.8 [facility] Comment on above: Performed By: #### 2 286677, 6868298, 16425881, 9783619, 26921933, 4275075, 0260197, 08476101, 4350940 ####[address] [place] [address] Lipase Levelon 10-07-2023 Lipase Lvl 15 unit/L Normal 13-58 [facility] Comment on above: Performed By: #### 2 282779, 4212647, 71678649, 2543973, 14165292, 9543065, 2146254, 22631576, 8963386 ####[facility] [address] [place] [address] Magnesiumon 10-07-2023 Magnesium [Mass/Vol] 1.6 mg/dL Normal 1.3-2.4 [facility] Comment on above: Performed By: #### 2 539989, 8584475, 72652615, 8450431, 56659095, 5945336, 5363690, 58189600, 2991779 ####[facility] [address] [place] [address] Medication Listson Medication Lists [id number]#1.00 TIFF Normal [facility] Monitor Recordon 10-07-2023 Monitor Record [id number]#1. 00TIFF Normal [facility] Outside Recordson 10-07-2023 Outside Records [id number]#1.00 TIFF Normal [facility] PT & PTTon 10-07-2023 aPTT Coag (PPP) [Time] 30.0 second(s) Normal 25.1-36.5 [facility] Comment on above: Result Comment: Para [...] the same coagulation reagent and instrumentation as [facility]. Currently there are no coagulation studies available worldwide for children to 14 days, and no normal ranges. Heparin therapeutic range (represented by Anti-Factor Xa activity of 0.2 - 0.4 U/mL) corresponds to PTT of 56.6 - 109.0 sec. Performed By: #### 2 017181, 2457799, 14499461, 9632491, 17358449, 6561079, 4845310, 75202778, 7340358 ####[facility] [address] [place] [address] INR Coag (PPP) [Relative time] 1.1 {INR} Invalid Interpretation Code [facility] Comment on above: Result Comment: INR results are specifically intended to assess patients stabilized on long-term Anticoagulation therapy suggested INR?s ?Less Intensive Anticoagulation? 2.0 ? 3.0Conventional Range 3.0 ? 4.5 Performed By: #### 2 742240, 4975902, 20968934, 0960189, 87822746, 6592844, 2791539, 83909077, 8345232 ####[facility] [address] [place] [address] PT Coag (PPP) [Time] 12.5 second(s) Normal 9.4-12.5 [facility] Comment on above: Result Comment: 15 [...] the same coagulation reagent and instrumentation as [facility]. Currently there are no coagulation studies available worldwide for children to 14 days, and no normal ranges. Performed By: #### 2 433219, 4892964, 36714043, 2548405, 84153363, 4211126, 3557784, 45673869, 1250648 ####[facility] [address] [place] [address] Progress Note-Nurseon 2023 Progress Note-Nurse ECG delayed due to complaints of chest pain not till patient in room 5 Normal [facility] Troponin 0 Hr.on 10-07-2023 Troponin 9.90 pg/mL Low 15.90-38.40 [facility] Comment on above: Result Comment: The 95% CI (Confidence Interval) PPV (Positive Predictive Value) for myocardial infarction in females is 38 pg/mL, in males 51 pg/mL. The results should be used in conjunction with clinical conditions of myocardial infarction.(Access High Sensitivity Troponin I Instructions For Use, Buck Mason, May 2018) Performed By: #### 2 261174, 6308902, 17840326, 6103949, 43545536, 8713388, 3130317, 25309592, 3407271 ####[facility] [address] [place] [address] Troponin 3 Hr.on 10-07-2023 Troponin 8.60 pg/mL Low 15.90-38.40 [facility] Comment on above: Result Comment: The 95% CI (Confidence Interval) PPV (Positive Predictive Value) for myocardial infarction in females is 38 pg/mL, in males 51 pg/mL. The results should be used in conjunction with clinical conditions of myocardial infarction.(Access High Sensitivity Troponin I Instructions For Use, Buck Mason, May 2018) Performed By: #### 1 6149264 ####[facility] [address] [place] [address] XR Chest Single Viewon 10-07 XR Chest Single View Normal [facility] eGFRon 10-07-2023 GFR/1.73 sq M.predicted among non-blacks MDRD (S/P/Bld) [Vol rate/Area] mL/min/{1.73_m2} Normal >=59 [facility] Comment on above: Order Comment: Order added by Discern Expert. Performed By: #### 2 [id number], 2051940, 30183850, 5729714, 09140500, 8489949, 4303050, 08528658, 0665528 ####[facility] [address] [place] [address] ECG 12 Leadon 09-16-2023 EKG shows possibilit y of atrial fibrillation but cannot rule out also atrial flutter atypical with 221 AV conduction rate of 112 bpm QRS 100 ms QT corrected 164 ms. Rhythm strip shows the same pattern. [facility] Work Phone: [facility] Work Phone: Heart and Vascular Office/Cl inic Noteon 08-29-2023 Heart and Vascular Office/Clinic Note Normal [facility] Comment on above: Result Comment: Elec tronically Signed By: Zia LEMNOS, Jaja Dash\.br\Date and Time Signed: 08/29/23 11:45 EST\.br\Electronically Co-Signed By: Deonte Remy\.br\Date and Time Co-Signed: 06/25/23 18:47 EDT Cardiac Device Check - Remot amanda 07-16-2023 Radiology Study observation (narrative) [facility] Work Phone: Cardiac Device Check - Remot eOrdered By: Geovani Mack on 07-16-2023 [facility] Work Phone: Physician Orderon 06-26-2023 Physician Order [id number]#1.0 0CD:127 Normal [facility] Ambulatory Visit Summaryon 0 06-25-2023 Ambulatory Visit Summary Normal [facility] Outside Recordson 05-06-2023 Outside Records [id number]#1 .00OTGTIFF Normal [facility] BASIC METABOLIC PANELon 07 Anion gap [Moles/Vol] 12 mmol/L 10 - 2 0 mmol/L [facility] Comment on above: Performed By: #### B #### [address] [id number] Calcium [Mass/Vol] 9.0 mg/dL 8.6 - 10. 3 mg/dL [facility] Comment on above: Performed By: #### B MP #### [address] [id number] Chloride [Moles/Vol] 104 mmol/L 98 - 10 7 mmol/L [facility] Comment on above: Performed By: #### B MP #### [address] [id number] Creatinine [Mass/Vol] 1.00 mg/dL 0.50 - 1.30 mg/dL [facility] Comment on above: Performed By: #### B MP #### [address] [id number] GFR/1.73 sq M.predicted among non-blacks MDRD (S/P/Bld) [Vol rate/Area] 81 mL/min/{1.73_m2} Normal >90 [facility] Comment on above: Result Comment: CALC ULATIONS OF ESTIMATED GFR ARE PERFORMED USING THE 2020 CKD-EPI STUDY REFIT EQUATION WITHOUT THE RACE VARIABLE FOR THE IDMS-TRACEABLE CREATININE METHODS. https://jasn.asnjournals.org/content//ASN.34939 20407 Performed By: #### B MP #### [address] [id number] Glucose [Mass/Vol] 164 mg/dL High 74 - 99 mg/dL [facility] Comment on above: Performed By: #### B MP #### [address] [id number] HCO3 (Bld) [Moles/Vol] 28 mmol/L Normal 21 - 32 [facility] Comment on above: Performed By: #### B MP #### [address] [id number] Potassium [Moles/Vol] 4.2 mmol/L 3.5 - 5.3 mmol/L [facility] Comment on above: Performed By: #### B MP #### [address] [id number] Sodium [Moles/Vol] 140 mmol/L 136 - 145 mmol/L [facility] Comment on above: Performed By: #### B MP #### [address] [id number] Urea nitrogen [Mass/Vol] 43 mg/dL High 6 - 23 mg/dL [facility] Comment on above: Performed By: #### B MP #### [address] [id number] Basic metabolic 2000 panelon 04-06-2023 CO2 [Moles/Vol] 28 mmol/L 21 - 32 mmol/L [facility] GFR MALE 81 - PINF [facility] Comment on above: CALCULATIONS OF CEZAR MATED GFR ARE PERFORMED USING THE 2020 CKD-EPI STUDY REFIT EQUATION WITHOUT THE RACE VARIABLE FOR THE IDMS-TRACEABLE CREATININE METHODS. https://jasn.asnjournals.org/content/early//ASN.04573 85545 CBCon 04-06-2023 Erythrocyte distribution width (RBC) [Ratio] 13.2 % Normal 11.5 - 14.5 [facility] Comment on above: Performed By: #### C BC #### [address] [id number] Hematocrit (Bld) [Volume fraction] 36.4 % Low 41.0 - 52.0 [facility] Comment on above: Performed By: #### C BC #### [address] [id number] Hemoglobin (Bld) [Mass/Vol] 11.5 g/dL Low 13.5 - 17.5 [facility] Comment on above: Performed By: #### C BC #### [address] [id number] MCHC (RBC) [Mass/Vol] 31.6 g/dL Low 32.0 - 36.0 [facility] Comment on above: Performed By: #### C BC #### [address] [place] [id number] MCV (RBC) [Entitic vol] 90 fL Normal 80 - 100 [facility] Comment on above: Performed By: #### C BC #### [address] [id number] Platelets (Bld) [#/Vol] 258 10*3/uL Normal 150 - 450 [facility] Comment on above: Performed By: #### C BC #### [address] [id number] RBC 4.04 x10E12/L Low 4.50 - 5.90 [facility] Comment on above: Performed By: #### C BC #### [address] [id number] WBC (Bld) [#/Vol] 7.0 10*3/uL Normal 4.4 - 11.3 [facility] Comment on above: Performed By: #### C BC #### [address] [id number] CBC panel Auto (Bld)on 04-06 Erythrocyte distribution width (RBC) [Ratio] 13.2 % 11.5 - 14.5 % [facility] Hematocrit (Bld) [Volume fraction] 36.4 % Low 41.0 - 52.0 % [facility] Hemoglobin (Bld) [Mass/Vol] 11.5 g/dL Low 13.5 - 17.5 g/dL [facility] MCHC (RBC) [Mass/Vol] 31.6 g/dL Low 32.0 - 36.0 g/dL [facility] MCV (RBC) [Entitic vol] 90 fL 80 - 100 fL [facility] Platelets (Bld) [#/Vol] 258 10*3/uL [facility] RBC (Bld) [#/Vol] 4.04 10*6/uL Low [facility] WBC (Bld) [#/Vol] 7.0 10*3/uL [facility] COAGULATION SCREENon 023 aPTT Coag (Bld) [Time] 33 s Normal 27 - 38 [facility] Comment on above: Result Comment: Note new reference range as of 03/24/2023 at 10:00am. Performed By: #### C OAGS #### [address] [id number] PT Coag (PPP) [Time] 11.8 s Normal 9.8 - 12.8 [facility] Comment on above: Result Comment: Note new reference range as of 03/24/2023 at 10:00am. Performed By: #### C OAGS #### [address] [id number] PT, INR 1.0 Normal 0.9 - 1.1 [facility] Comment on above: Performed By: #### C OAGS #### [address] [id number] Discharge Gkjxroj1ox 023 Discharge Profile2 Discharge Orders: Code Status: Code Status at Discharge: Full Code DNR Order Additional Instructions (peds only): Appointments: Follow-Up Appointment 01: Physician/Dept/Service [facility] Reason for ReferralIncision Check Scheduled Date/[id number] 09:30 [facility] Office, [address] [place] [address], [address] Phone [phone] Follow-Up Appointment 02: Physician/Dept/Service [facility] Central Registration Reason for ReferralDevice check Scheduled Date/[id number] 07:30 [facility] Phone [phone] Follow-Up Appointment 03: Physician/Dept/Service Dr Mack Reason for ReferralFollow-up Scheduled Date/Tfoa35-[id number] 08:30 [facility] Office, [address] [place] [address], [address] Phone [phone] Electronic Signatures: Mahesh Araiza (COOR) (Signed 06-Apr-2023 09:57) Authored: Discharge Orders, Appointments, Gold Form - Waste Specialist Summary Last Updated: 06-Apr-2023 09:57 by Hostert, Mahesh (COOR) Normal [facility] Electrocardiogram 12 Leadon 04-06-2023 Electrocardiogram 12 Lead Ventricular Rate 58 Atrial Rate 58 P-R Interval 150 QRS Duration 118 Q-T Interval 444 QTC Calculation(Bazett) 435 P Macomb 76 R Macomb -43 T Macomb 10 QRS Count 10 Q Onset 228 P Onset 153 P Offset 184 T Offset 450 QTC Fredericia 438 Diagnosis Class Abnormal Diagnosis Sinus bradycardia Left axis deviation Nonspecific intraventricular conduction delay Abnormal ECG No previous ECGs available Confirmed by Amol Reno ([id number]) on 04/06/2023 5:30:31 PM Normal [facility] Electrocardiogram 12 LeadOrd ered By: Amol Reno on 04-06-2023 Atrial Rate 58 BPM [facility] Work Phone: [phone] P Macomb 76 degrees [facility] Work Phone: [phone] P Offset 184 ms [facility] Work Phone: [phone] P Onset 153 ms [facility] Work Phone: [phone] IA Interval 150 ms [facility] Work Phone: [phone] Q Onset 228 ms [facility] Work Phone: [phone] QRS Count 10 beats [facility] Work Phone: [phone] QRS Duration 118 ms [facility] Work Phone: [phone] QT Interval 444 ms [facility] Work Phone: [phone] QTC Calculation(Bazett) 435 ms [facility] Work Phone: [phone] QTC Fredericia 438 ms [facility] Work Phone: R Macomb -43 degrees [facility] Work Phone: [phone] T Macomb 10 degrees [facility] Work Phone: [phone] T Offset 450 ms [facility] Work Phone: [phone] Ventricular Rate 58 BPM [facility] Work Phone: [phone] [facility] Work Phone: [phone] Electrocardiogram 12 Leadon 04-06-2023 Sinus bradycardia Left axis deviation Nonspecific intraventricular conduction delay Abnormal ECG No previous ECGs available Confirmed by Amol Reno ([id number]) on 04/06/2023 5:30:31 PM Amol De La Cruz M D - 04/06/2023 Sinus bradycardia Left axis deviation Nonspecific intraventricular conduction delay Abnormal ECG No previous ECGs available Confirmed by Amol Reno ([id number]) on 04/06/2023 5:30:31 PM [facility] Work Phone: No Panel Informationon 04-06 [facility] Interpretation and review of laboratory results Abnormal [facility] Order Reconciliationon 04-06 Order Reconciliation Page 1 Discharge Reconciliation Document Reconciliation Type: Discharge requested on behalf of Esther Adams (Advanced Practice Nurse) done by Esther Adams (EMERGENCY ROOM SPECIALIST-[facility]) Discharge - Reconciliation: 06-Apr-2023 14:32 by: Esther Adams (EMERGENCY ROOM SPECIALIST-[employer]) Home Medications EnteredHOME MEDICATIONS AT DISCHARGE DateReconciliation [...] hour(s) 3 (more content not included)... Normal [facility] PT and aPTT panel Coag (PPP) on 04-06-2023 aPTT Coag (PPP) [Time] 33 s [facility] Comment on above: Note new reference r renetta as of 03/24/2023 at 10:00am. INR Coag (PPP) [Relative time] 1.0 {INR} 0.9 - 1.1 [facility] PT Coag (PPP) [Time] 11.8 s [facility] Comment on above: Note new reference r renetta as of 03/24/2023 at 10:00am. Patient Profile - Preop v3on 04-06-2023 Patient Profile - Preop v3 Patient Profile - Preop: Initial Info: Patient DemographicsName: OTILIO SUAREZ Date: 1955 Address: [address] [place] [address] Primary Phone [phone] How to be AddressedJerry Spoken Language PreferredEnglish Source of Informationpatient Stated Reason for Admissionloop implant Primary Contact Name and NumberShawn Limitations on Visitors/Phone Callsnone Medications Brought to [facility]: Weight in kg96 kilogram(s) Weight in xih953.6 pound(s) Weight Methodactual (measured) Scale Typestanding Height in sjvdoa00 inch(es) Height Methodstated Patient or Family Member [...] Updated: 06-Apr-2023 09:58 by Paula Beal (LISA) [facility] Heart and Vascular Office/Cl inic Noteon 03-29-2023 Heart and Vascular Office/Clinic Note [facility] Comment on above: Result Comment: Elec tronically Signed By: Zia LEMONS, Jaja Dash\.br\Date and Time Signed: 03/29/23 14:48 EDT\.br\Electronically Co-Signed By: Afsaneh Puente\.br\Date and Time Co-Signed: 03/26/23 15:29 EDT Physician Orderon 03-27-2023 Physician Order [id number]#1. 00CD:127 [facility] Consent for Treatmenton 03-06 Consent for Treatment [id number] [id number]#1.00 CD:127 [facility] Fci Recordson 03-26 Fci Records [id number]#1.0 0CD:127 [facility] Outside Cardiovascularon Outside Cardiovascular [id number]#1. 00CD:127 [facility] Outside Cardiovascularon Outside Cardiovascular [id number]#1. 00CD:127 [facility] Office Visit (Cardiology)on 03-24-2023 Follow-up visit [...] Screening.on 023 Adult depression screening assessment No [facility] [address] DO Work Phone: Fall risk assessment a) No falls within the last year [facility] [address] DO Work Phone: Tobacco use status [facility] b) No [facility] [address] DO Work Phone: Outside Recordson 03-04-2023 Outside Records [id number]#1. 00CD:127 Normal [facility] Outside Recordson 03-03-2023 Outside Records [id number] 23 [id number]#1.0 0OTGTIFF [facility] Progress Note-Nurseon 2022 Progress Note-Nurse [id number]#1. 00CD:127 Normal [facility] Consent for Treatmenton 02-03 Consent for Treatment [id number]#1.0 0CD:127 Normal [facility] Heart and Vascular Office/Cl inic Noteon 02-24-2023 Heart and Vascular Office/Clinic Note Normal [facility] Comment on above: Result Comment: Elec tronically Signed By: TONY GILMORE, Bushra Guo\.br\Date and Time Signed: 02/24/23 13:45 EDT Progress Note-Physicianon Progress Note-Physician [id number]#1. 00CD:127 Normal [facility] Auto Diffon 02-17-2023 Basophils/100 WBC (Bld) 0.7 % Normal 0.0-2.0 [facility] Comment on above: Order Comment: Order Added by Discern Expert. Performed By: #### 2 942367, 5025593, 92888781, 81532118, 1833336, 3721433, 02835924, 1668191 ####[address] [place] [address] Basophils/Leukocytes Auto (Bld) [Pure # fraction] 0.1 E9/L Normal 0.0-0.2 [facility] Comment on above: Order Comment: Order Added by Discern Expert. Performed By: #### 2 750876, 7458375, 43711073, 01617505, 7620466, 0851666, 96234884, 0868865 ####[address] [place] [address] Eosinophils/100 WBC (Bld) 7.6 % Normal 0.0-8.0 [facility] Comment on above: Order Comment: Order Added by Discern Expert. Performed By: #### 2 429432, 2918682, 43128189, 57717153, 9639025, 7161667, 53110894, 4712930 ####[address] [place] [address] Eosinophils/Leukocytes Auto (Bld) [Pure # fraction] 0.5 E9/L Normal 0.0-0.5 [facility] Comment on above: Order Comment: Order Added by Discern Expert. Performed By: #### 2 802366, 2618510, 60358006, 25384409, 9732026, 0653821, 73129540, 3469640 ####[address] [place] [address] Lymphocytes/100 WBC (Bld) 41.2 % Normal 14.0-50.0 [facility] Comment on above: Order Comment: Order Added by Discern Expert. Performed By: #### 2 861237, 5876156, 30654512, 53161499, 8648561, 2183481, 40557824, 2875421 ####[address] [place] [address] Lymphocytes/Leukocytes Auto (Bld) [Pure # fraction] 2.8 E9/L Normal 1.0-4.0 [facility] Comment on above: Order Comment: Order Added by Discern Expert. Performed By: #### 2 940823, 6977667, 69413993, 42107906, 4172434, 1704039, 01225314, 5104012 ####[address] [place] [address] Monocytes/100 WBC (Bld) 6.9 % Normal 4.0-14.0 [facility] Comment on above: Order Comment: Order Added by Discern Expert. Performed By: #### 2 231604, 6975382, 51879320, 27541537, 2075784, 9886890, 21057417, 4222060 ####[facility] [address] [place] [address] Monocytes/Leukocytes Auto (Bld) [Pure # fraction] 0.5 E9/L Normal 0.2-1.0 [facility] Comment on above: Order Comment: Order Added by Discern Expert. Performed By: #### 2 659064, 4789376, 08303894, 28100102, 0999171, 1063420, 63647995, 8926300 ####[facility] [address] [place] [address] Neutrophils/100 WBC (Bld) 43.6 % Normal 36.0-75.0 [facility] Comment on above: Order Comment: Order Added by Discern Expert. Performed By: #### 2 655473, 7166998, 07368064, 91635176, 0825803, 1402330, 00152022, 1458621 ####[facility] [address] [place] [address] Neutrophils/Leukocytes Auto (Bld) [Pure # fraction] 2.9 E9/L Normal 2.0-7.5 [facility] Comment on above: Order Comment: Order Added by Discern Expert. Performed By: #### 2 152823, 7968705, 70608587, 34958347, 9173630, 1531665, 54287007, 2130393 ####[facility] [address] [place] [address] BMPon 02-17-2023 Creatinine [Mass/Vol] 1.1 mg/dL Normal 0.5-1.3 [facility] Comment on above: Performed By: #### 2 014516, 8005483, 04150810, 78222237, 6439508, 3770903, 46594469, 8053636 ####[facility] [address] [place] [address] Urea nitrogen [Mass/Vol] 26 mg/dL High 5-21 [facility] Comment on above: Performed By: #### 2 806937, 0368245, 12839824, 00934080, 4642584, 7332891, 40284418, 2696786 ####[facility] [address] [place] [address] Urea nitrogen/Creatinine [Mass ratio] 24 No Units High 10-20 [facility] Comment on above: Performed By: #### 2 320727, 4764031, 08064311, 11048616, 7359876, 0291719, 40441638, 3027968 ####[facility] [address] [place] [address] Anion gap [Moles/Vol] 12 mmol/L Normal 6-16 [facility] Comment on above: Performed By: #### 2 518478, 0064933, 46235163, 39316433, 6456619, 3152454, 68769557, 0194709 ####[facility] [address] [place] [address] Calcium [Mass/Vol] 9.2 mg/dL Normal 8.9-11.1 [facility] Comment on above: Performed By: #### 2 889194, 8367095, 73870331, 53971573, 7605407, 2273058, 83418294, 2176203 ####[facility] [address] [place] [address] Chloride [Moles/Vol] 103 mmol/L Normal 101-111 [facility] Comment on above: Performed By: #### 2 355499, 9564950, 67989462, 87304453, 3675891, 0231284, 40027330, 8901447 ####[facility] [address] [address] CO2 [Moles/Vol] 27 mmol/L Normal 21-31 [facility] Comment on above: Performed By: #### 2 633760, 0736992, 20136349, 09254629, 8630400, 2211666, 47060421, 2671942 ####[facility] [address] [place] [address] Glucose [Mass/Vol] 148 mg/dL Normal 55-199 [facility] Comment on above: Result Comment: If t his glucose result represents a fasting glucose, interpretation should refer to the following reference range: 55-99 mg/dL Performed By: #### 2 434085, 5826913, 20250618, 62037470, 5042254, 8204788, 82273345, 4176840 ####[facility] [address] [place] [address] Potassium [Moles/Vol] 4.3 mmol/L Normal 3.5-5.3 [facility] Comment on above: Performed By: #### 2 411020, 2177989, 69791191, 65343995, 8646852, 7519987, 18559117, 8240033 ####[facility] [address] [place] [address] Sodium [Moles/Vol] 138 mmol/L Normal 135-145 [facility] Comment on above: Performed By: #### 2 073637, 3491758, 94529699, 74829474, 9826190, 2399666, 55943407, 7568894 ####[facility] [address] [place] [address] Blood Gas Art, with Lytes, G kj, [place] 02-17-2023 a/A Ratio Art 86.90 % Normal >=0.80 [facility] Comment on above: Performed By: #### 4 82863146 ####[facility] [address] [place] [address] AaDO2 Art 13.6 mmHg Normal 5.0-15.0 [facility] Comment on above: Performed By: #### 4 39055757 ####[facility] [address] [place] [address] Allens Test Positive Normal [facility] Comment on above: Performed By: #### 4 61171591 ####[facility] [address] [place] [address] Base Excess Arterial 0.9 mmol/L Low >=2.8 [facility] Comment on above: Performed By: #### 4 29483228 ####[facility] [address] [place] [address] cCa2+ Art 4.86 mg/dL Normal 4.40-5.30 [facility] Comment on above: Performed By: #### 4 85341592 ####[facility] [address] [place] [address] cCl- Art 105.0 mmol/L Normal 101.0-111.0 [facility] Comment on above: Performed By: #### 4 16239117 ####[facility] [address] [place] [address] cGlu Art 118 mg/dL High 55-99 [facility] Comment on above: Performed By: #### 4 94057095 ####[facility] [address] [place] [address] cK+ Art 3.8 mmol/L Normal 3.5-5.3 [facility] Comment on above: Performed By: #### 4 34601591 ####[facility] [address] [place] [address] cLac Art .6 mmol/L Normal .5-2.2 [facility] Comment on above: Performed By: #### 4 56106173 ####[facility] [address] [place] [address] automobile club information clerk+ Art 140.0 mmol/L Normal 135.0-145.0 [facility] Comment on above: Performed By: #### 4 12572443 ####[facility] [address] [place] [address] Drawn by MALONE Invalid Interpretation Code [facility] Comment on above: Performed By: #### 4 [id number] ####[facility] [address] [place] [address] FCOHb Art 0.8 % Low 1.5-4.9 [facility] Comment on above: Result Comment: Refe rence rangeNonsmoker <1.5%Smoker <5.0%Heavy Smoker <9.0% Performed By: #### 4 32100438 ####[facility] [address] [place] [address] FIO2 BG 21 Invalid Interpretation Code [facility] Comment on above: Performed By: #### 4 08721737 ####[facility] [address] [place] [address] FMetHb Art 0.4 % Normal 0.0-1.9 [facility] Comment on above: Performed By: #### 4 97601615 ####[address] [place] [address] FO2Hb Art 97.0 % Normal 93.0-100.0 [facility] Comment on above: Performed By: #### 4 68310971 ####[facility] [address] [place] [address] HCO3 (Bld) [Moles/Vol] 25.2 mmol/L Normal 22.0-26.0 [facility] Comment on above: Performed By: #### 4 03858726 ####[facility] [address] [place] [address] Hemoglobin (Bld) [Mass/Vol] 11.1 g/dL Low 12.0-17.0 [facility] Comment on above: Performed By: #### 4 04018030 ####[facility] [address] [place] [address] Oxygen saturation in Blood 98.1 % Normal 95.0-100.0 [facility] Comment on above: Performed By: #### 4 [id number] ####[facility] [address] [place] [address] P CO2 Arterial 37.1 mmHg Normal 35.0-45.0 [facility] Comment on above: Performed By: #### 4 [id number] ####[facility] [address] [place] [address] P O2 Arterial 90.0 mmHg Normal 80.0-100.0 [facility] Comment on above: Performed By: #### 4 [id number] ####[facility] [address] [place] [address] pH Arterial 7.437 Normal 7.350-7.450 [facility] Comment on above: Performed By: #### 4 [id number] ####[facility] [address] [place] [address] Sample Site R Radial Normal [facility] Comment on above: Performed By: #### 4 [id number] ####[address] [address] Sample Type Arterial Draw Normal [facility] Comment on above: Performed By: #### 4 [id number] ####[place] [id number] CBC w/ Auto Diffon 3 Erythrocyte distribution width (RBC) [Ratio] 14.5 % High 10.9-14.2 [facility] Comment on above: Performed By: #### 2 863534, 6863443, 13820147, 91632454, 2025773, 7678534, 20046695, 7608697 ####[place] [address] [place] [address] Hematocrit (Bld) [Volume fraction] 36.9 % Low 37.7-49.0 [facility] Comment on above: Performed By: #### 2 876119, 1022367, 97481115, 87976829, 4452865, 5255665, 79559216, 1750050 ####[place] [address] [place] [address] Hemoglobin (Bld) [Mass/Vol] 11.6 g/dL Low 13.5-17.5 [facility] Comment on above: Performed By: #### 2 004109, 6779431, 26842705, 61446012, 3342156, 3292127, 41569426, 9135209 ####[facility] [address] [place] [address] MCH (RBC) [Entitic mass] 27.5 pg Normal 27.0-34.0 [facility] Comment on above: Performed By: #### 2 610422, 2088266, 19207844, 32615198, 8910847, 7796105, 94631705, 4226700 ####[facility] [address] [place] [address] MCHC (RBC) [Mass/Vol] 31.3 g/dL Low 31.4-36.0 [facility] Comment on above: Performed By: #### 2 296378, 1919156, 07097677, 83557378, 2458352, 6141512, 09386438, 5671348 ####[address] [address] MCV (RBC) [Entitic vol] 87.8 fL Normal 80.0-100.0 [facility] Comment on above: Performed By: #### 2 746616, 1383956, 22041628, 05569374, 8873142, 0956590, 75660903, 5577567 ####[address] [address] Platelet mean volume (Bld) [Entitic vol] 8.6 fL Normal 6.4-10.8 [facility] Comment on above: Performed By: #### 2 375187, 4207514, 79213656, 97132702, 9354963, 6929452, 91586189, 3514465 ####[address] [address] Platelets (Bld) [#/Vol] 185.0 E9/L Normal 150.0-500.0 [facility] Comment on above: Performed By: #### 2 238940, 6244230, 45691377, 31035838, 8739495, 2673034, 90590164, 8306235 ####[facility] [address] [place] [address] RBC (Bld) [#/Vol] 4.2 E12/L Low 4.3-5.9 [facility] Comment on above: Performed By: #### 2 260676, 3165876, 18795910, 73143008, 0850475, 2248869, 86723136, 5512634 ####[facility] [address] [place] [address] WBC corrected for nucl RBC Auto (Bld) [#/Vol] 6.8 E9/L Normal 4.0-11.0 [facility] Comment on above: Performed By: #### 2 552575, 6199849, 17090794, 36656372, 3820239, 2498514, 42633632, 8505258 ####[facility] [address] [place] [address] CT Head or Brain w/o Contras ton 02-17-2023 CT Head or Brain w/o Contrast Normal [facility] Consent for Treatmenton 02-02 Consent for Treatment [id number]#1. 00CD:127 Normal [facility] Discharge Instructionson Discharge Instructions [id number]#1. 00CD:127 Normal [facility] ED Clinical Summaryon 2022 ED Clinical Summary Normal [facility] ED Note-Physicianon 02-18-20 23 ED Note-Physician Normal [facility] Comment on above: Result Comment: Elec tronically Signed By: Tita Albright DO.br\Date and Time Signed: 02/17/23 03:46 EDT ED Patient Education Noteon 02-17-2023 ED Patient Education Note Normal [facility] ED Patient Summaryon 023 ED Patient Summary Normal [facility] Hep Func Panelon 02-17-2023 Bilirubin.indirect [Mass or moles/Vol] UTC Abnormal 0.1-0.9 [facility] Comment on above: Result Comment: Resu lt verified by Discern Rule. Performed result [facility] (Unable to Calculate) was sent as an Alpha code due the inability to calculate a valid numeric value. Performed By: #### 2 604731, 3800156, 10846293, 43976038, 4633800, 8264184, 68900590, 3450828 ####[facility] [address] [place] [address] Albumin [Mass/Vol] 3.7 g/dL Normal 3.3-5.0 [facility] Comment on above: Performed By: #### 2 813051, 9159172, 85514542, 80247956, 1427762, 7902646, 66365692, 3080170 ####[place] [address] [place] [address] Albumin/Globulin (S) [Mass conc ratio] 1.3 Normal 1.1-2.2 [facility] Comment on above: Performed By: #### 2 108415, 5415698, 95482798, 64465019, 7874530, 4842723, 76965731, 2239832 ####[place] [address] [place] [address] ALP [Catalytic activity/Vol] 62 Int._Unit/L Normal 21-98 [facility] Comment on above: Performed By: #### 2 324610, 0405517, 73537947, 51033224, 4943208, 8217290, 07419211, 8267982 ####[facility] [address] [place] [address] ALT No additional P-5'-P [Catalytic activity/Vol] 15 Int._Unit/L Normal 6-46 [facility] Comment on above: Performed By: #### 2 954167, 6467028, 24033935, 82941863, 2571285, 2588404, 57738897, 6774921 ####[place] [address] [place] [address] AST [Catalytic activity/Vol] 20 Int._Unit/L Normal 5-43 [facility] Comment on above: Performed By: #### 2 393906, 2205727, 66280316, 86329420, 7353318, 6624753, 49097384, 3689065 ####[facility] [address] [place] [address] Bilirubin [Mass/Vol] 0.3 mg/dL Normal 0.0-1.1 [facility] Comment on above: Performed By: #### 2 505790, 8286572, 42157597, 93540469, 5695683, 1064629, 87943937, 8154735 ####[place] [address] [place] [address] Globulin (S) [Mass/Vol] 2.9 g/dL Normal 1.4-4.0 [facility] Comment on above: Performed By: #### 2 978141, 4350030, 46305977, 58939716, 4930321, 8262507, 16098169, 7850113 ####[facility] [address] [place] [address] Protein [Mass/Vol] 6.6 g/dL Normal 6.0-7.8 [facility] Comment on above: Performed By: #### 2 361054, 3576311, 93110883, 37212182, 4593958, 6745861, 57900765, 0351698 ####[facility] [address] [place] [address] Bilirubin.direct [Mass/Vol] mg/dL Normal 0.1-0.4 [facility] Comment on above: Performed By: #### 2 626585, 9830148, 57509108, 75290892, 9653358, 9862173, 74040593, 1078210 ####[facility] [address] [place] [address] Magnesiumon 02-17-2023 Magnesium [Mass/Vol] 1.7 mg/dL Normal 1.3-2.4 [facility] Comment on above: Performed By: #### 2 374559, 9943693, 58346643, 10430769, 1857908, 4912134, 07248388, 8103404 ####[facility] [address] [place] [address] Monitor Recordon 02-17-2023 Monitor Record [id number]#1. 00CD:127 Normal [facility] Monitor Record [id number] 50 [id number]#1. 00CD:127 Normal [facility] Fci Recordson 02-17 Fci Records [id number]#1. 00CD:127 Normal [facility] PT & PTTon 02-17-2023 aPTT Coag (PPP) [Time] 31.5 second(s) Normal 25.1-36.5 [facility] Comment on above: Result Comment: Para [...] the same coagulation reagent and instrumentation as [facility]. Currently there are no coagulation studies available worldwide for children to 14 days, and no normal ranges. Heparin therapeutic range (represented by Anti-Factor Xa activity of 0.2 - 0.4 U/mL) corresponds to PTT of 56.6 - 109.0 sec. Performed By: #### 2 476630, 2379967, 54261619, 93984503, 2539465, 5964345, 92206746, 3591148 ####[facility] [address] [place] [address] INR Coag (PPP) [Relative time] 1.0 {INR} Invalid Interpretation Code [facility] Comment on above: Result Comment: INR results are specifically intended to assess patients stabilized on long-term Anticoagulation therapy suggested INR?s ?Less Intensive Anticoagulation? 2.0 ? 3.0Conventional Range 3.0 ? 4.5 Performed By: #### 2 372333, 1556076, 66357635, 85025918, 7909414, 7739309, 94942281, 7919237 ####[facility] [address] [place] [address] PT Coag (PPP) [Time] 11.1 second(s) Normal 9.4-12.5 [facility] Comment on above: Result Comment: 15 [...] the same coagulation reagent and instrumentation as [facility]. Currently there are no coagulation studies available worldwide for children to 14 days, and no normal ranges. Performed By: #### 2 580798, 9155387, 96700844, 67761553, 1040060, 9042643, 53347372, 9486851 ####[facility] [address] [place] [address] Pre-Arrival Noteon 3 Pre-Arrival Note Normal [facility] RAD - Preliminary Cat Scan R eporton 02-17-2023 RAD - Preliminary Cat Scan Report [id number]#1.0 0CD:127 Normal [facility] Transfer Documentson 023 Transfer Documents [id number]#1. 00CD:127 Normal [facility] Troponin 0 Hr.on 02-17-2023 Troponin I.cardiac [Mass/Vol] 5.80 pg/mL Low 15.90-38.40 [facility] Comment on above: Result Comment: The 95% CI (Confidence Interval) PPV (Positive Predictive Value) for myocardial infarction in females is 38 pg/mL, in males 51 pg/mL. The results should be used in conjunction with clinical conditions of myocardial infarction.(Access High Sensitivity Troponin I Instructions For Use, Buck Mason, May 2018) Performed By: #### 2 542601, 9818821, 38483307, 75585698, 9998258, 2089143, 23513642, 4012152 ####[facility] [address] [place] [address] Troponin 3 Hr.on 02-17-2023 Troponin I.cardiac [Mass/Vol] 6.30 pg/mL Low 15.90-38.40 [facility] Comment on above: Result Comment: The 95% CI (Confidence Interval) PPV (Positive Predictive Value) for myocardial infarction in females is 38 pg/mL, in males 51 pg/mL. The results should be used in conjunction with clinical conditions of myocardial infarction.(Access High Sensitivity Troponin I Instructions For Use, Buck Mason, May 2018) Performed By: #### 1 1193990 ####[facility] [address] [place] [address] XR Chest Single Viewon 02-17 XR Chest Single View Normal [facility] eGFRon 02-17-2023 GFR/1.73 sq M.predicted among non-blacks MDRD (S/P/Bld) [Vol rate/Area] 73 mL/min/1.73 m2 Normal >=59 [facility] Comment on above: Order Comment: Order added by Discern Expert. Result Comment: Station Helper lokesh kidney disease could be indicated at eGFR's of less than 60 mL/min/1.73m2. Kidney failure is indicated at less than 15 mL/min/1.73m2. Performed By: #### 2 494661, 1890554, 71425894, 87016151, 9304721, 8359032, 09887131, 5896512 ####[facility] [address] [place] [address] Discharge Instructionson Discharge Instructions [id number]#1.0 0CD:127 Normal [facility] Transfer Documentson 023 Transfer Documents [id number]#1.0 0CD:127 Normal [facility] CHEMISTRYOrdered By: Arpita ROP User on 02-14-2023 Glucose [Mass/Vol] 112 mg/dL High 55 - 99 mg/dL [facility] POC Subsection Comment on above: Result Comment: Clemente christopher RN/ POC Device SN [id number] Invalid Interpretation Code [facility] POC Subsection POC User ID [id number] Invalid Interpretation Code [facility] POC Subsection POC Username JONH MOCTEZUMA Invalid Interpretation Code [facility] POC Subsection Capillary Glucose POCon 02-02 Glucose [Mass/Vol] 112 mg/dL High 55-99 [facility] Comment on above: Result Comment: Clemente christopher RN/ Performed By: #### 2 [id number] ####[facility] [address] [place] [address] Cortisolon 02-14-2023 Cortisol [Mass/Vol] 18.8 microgram/dL Invalid Interpretation Code 6.2-19.4 [facility] Comment on above: Result Comment: Sandy denton Note: The reference interval and flagging forthis test is for an AM collection. If this is a PMcollection please use: Cortisol PM: 2.3-11.9Performed at: [facility] [address] [place], [place] [id number] PhD Desmond Jimenez Performed By: #### 2 618701 ####[facility] [address] [place] [address] Cortisol [Mass/Vol] 22.4 microgram/dL High 6.2-19.4 [facility] Comment on above: Result Comment: Plea se Note: The reference interval and flagging forthis test is for an AM collection. If this is a PMcollection please use: Cortisol PM: 2.3-11.9Performed at: [facility] [address] [place], [place] [id number] PhD Desmond Jimenez Performed By: #### 2 083529 ####[facility] [address] [place] [address] Inpatient Patient Summaryon 02-14-2023 Inpatient Patient Summary Normal [facility] Interdisciplinary Note - Hermelindo e Manageron 02-14-2023 Interdisciplinary Note - Director Of Media Patient was discharged back to [facility] prior to CRM seeing. Daughter transported. Normal [facility] Comment on above: Result Comment: Elec tronically Signed By: Tommie GONZALEZ, Meredith\.br\Date and Time Signed: 02/14/23 13:43 EDT Monitor Recordon 02-14-2023 Monitor Record [id number]#1. 00CD:127 Normal [facility] Monitor Record [id number]#1. 00CD:127 Normal [facility] Monitor Record [id number]#1. 00CD:127 Normal [facility] Ammoniaon 02-13-2023 Ammonia (P) [Moles/Vol] 18 mcmol Normal 11-35 [facility] Comment on above: Performed By: #### 1 2718785, 5028070, 68722036, 9264872, 8438425, 09793972, 8298288, 3465375 ####[facility] [address] [place] [address] Auto Diffon 02-13-2023 Basophils/100 WBC (Bld) 0.9 % Normal 0.0-2.0 [facility] Comment on above: Order Comment: Order Added by Discern Expert. Performed By: #### 1 4539057, 5675916, 64762402, 2876766, 9013227, 70959282, 4435722, 4907684 ####[facility] [address] [place] [address] Basophils/Leukocytes Auto (Bld) [Pure # fraction] 0.1 E9/L Normal 0.0-0.2 [facility] Comment on above: Order Comment: Order Added by Discern Expert. Performed By: #### 1 6813282, 6426724, 37817267, 2380953, 6015535, 37570291, 0122466, 6411776 ####[place] [address] [place] [address] Eosinophils/100 WBC (Bld) 7.2 % Normal 0.0-8.0 [facility] Comment on above: Order Comment: Order Added by Discern Expert. Performed By: #### 1 4922782, 9352464, 36697834, 0639396, 5233183, 21189408, 3984070, 8459379 ####[place] [address] [place] [address] Eosinophils/Leukocytes Auto (Bld) [Pure # fraction] 0.4 E9/L Normal 0.0-0.5 [facility] Comment on above: Order Comment: Order Added by Discern Expert. Performed By: #### 1 8753425, 5073008, 74136463, 4658853, 4788486, 21182442, 3019864, 1010240 ####[place] [address] [place] [address] Lymphocytes/100 WBC (Bld) 38.5 % Normal 14.0-50.0 [facility] Comment on above: Order Comment: Order Added by Discern Expert. Performed By: #### 1 6105740, 2499046, 20180376, 8782689, 3709146, 38133393, 9808991, 9461699 ####[place] [address] [place] [address] Lymphocytes/Leukocytes Auto (Bld) [Pure # fraction] 2.3 E9/L Normal 1.0-4.0 [facility] Comment on above: Order Comment: Order Added by Discern Expert. Performed By: #### 1 8511254, 2957878, 97803861, 0378176, 7328621, 28333489, 2193970, 7045874 ####[facility] [address] [place] [address] Monocytes/100 WBC (Bld) 7.2 % Normal 4.0-14.0 [facility] Comment on above: Order Comment: Order Added by Discern Expert. Performed By: #### 1 8201474, 9367388, 42757383, 2218790, 8447893, 13863808, 6720066, 5434612 ####[facility] [address] [place] [address] Monocytes/Leukocytes Auto (Bld) [Pure # fraction] 0.4 E9/L Normal 0.2-1.0 [facility] Comment on above: Order Comment: Order Added by Pearl Expert. Performed By: #### 1 7218819, 0479580, 08949759, 7596446, 0522561, 53637950, 0528406, 9732591 ####[facility] [address] [place] [address] Neutrophils/100 WBC (Bld) 46.2 % Normal 36.0-75.0 [facility] Comment on above: Order Comment: Order Added by Pearl Expert. Performed By: #### 1 3914173, 8306110, 96850275, 3148821, 5498874, 56925898, 8809737, 5599986 ####[facility] [address] [place] [address] Neutrophils/Leukocytes Auto (Bld) [Pure # fraction] 2.7 E9/L Normal 2.0-7.5 [facility] Comment on above: Order Comment: Order Added by Pearl Expert. Performed By: #### 1 5338368, 1575500, 48342571, 4405536, 4443909, 28403761, 4561042, 8375025 ####[facility] [address] [place] [address] BMPon 02-13-2023 Creatinine [Mass/Vol] 1.2 mg/dL Normal 0.5-1.3 [facility] Comment on above: Performed By: #### 1 9841514, 2756122, 43097892, 7272746, 1101388, 01473423, 2348361, 3400355 ####[facility] [address] [place] [address] Urea nitrogen [Mass/Vol] 41 mg/dL High 5-21 [facility] Comment on above: Performed By: #### 1 3479391, 2661124, 76296265, 6873411, 9135142, 19906328, 5130964, 0483934 ####[facility] [address] [place] [address] Urea nitrogen/Creatinine [Mass ratio] 34 No Units High 10-20 [facility] Comment on above: Performed By: #### 1 4194108, 1451423, 44062980, 6956582, 1863398, 68483751, 6586832, 4952087 ####[facility] [address] [place] [address] Anion gap [Moles/Vol] 12 mmol/L Normal 6-16 [facility] Comment on above: Performed By: #### 1 7180799, 5974241, 29738615, 3368367, 2603862, 03171636, 1969097, 0872615 ####[facility] [address] [place] [address] Calcium [Mass/Vol] 9.1 mg/dL Normal 8.9-11.1 [facility] Comment on above: Performed By: #### 1 7845449, 8465932, 18204100, 9853713, 3522006, 79115313, 9498273, 9208242 ####[facility] [address] [place] [address] Chloride [Moles/Vol] 102 mmol/L Normal 101-111 [facility] Comment on above: Performed By: #### 1 5979089, 9405755, 35517888, 2210570, 7331526, 16563343, 2134884, 5764197 ####[facility] [address] [place] [address] CO2 [Moles/Vol] 26 mmol/L Normal 21-31 [facility] Comment on above: Performed By: #### 1 1742731, 1634442, 36636837, 6166490, 8992395, 53307916, 6775980, 4983158 ####[facility] [address] [place] [address] Glucose [Mass/Vol] 128 mg/dL Normal 55-199 [facility] Comment on above: Result Comment: If t his glucose result represents a fasting glucose, interpretation should refer to the following reference range: 55-99 mg/dL Performed By: #### 1 7912444, 3712328, 82790775, 2359917, 3615247, 58134661, 6768441, 6187543 ####[facility] [address] [place] [address] Potassium [Moles/Vol] 4.2 mmol/L Normal 3.5-5.3 [facility] Comment on above: Performed By: #### 1 5213255, 3066913, 91241226, 6095964, 3787026, 47260558, 6355504, 2927518 ####[facility] [address] [place] [address] Sodium [Moles/Vol] 136 mmol/L Normal 135-145 [facility] Comment on above: Performed By: #### 1 9726757, 7243119, 59327035, 8896586, 0589759, 82567077, 6190661, 0531338 ####[facility] [address] [place] [address] Blood Gas Art, with LytesChapin kj, [place] 02-13-2023 a/A Ratio Art 79.30 % Normal >=0.80 [facility] Comment on above: Performed By: #### 4 33933025 ####[facility] [address] [place] [address] AaDO2 Art 19.4 mmHg High 5.0-15.0 [facility] Comment on above: Performed By: #### 4 69691861 ####[facility] [address] [place] [address] Allens Test Positive Normal [facility] Comment on above: Performed By: #### 4 05169634 ####[facility] [address] [place] [address] Base Excess Arterial 1.7 mmol/L Low >=2.8 [facility] Comment on above: Performed By: #### 4 62852348 ####[place] [place] [address] cCa2+ Art 4.95 mg/dL Normal 4.40-5.30 [facility] Comment on above: Performed By: #### 4 61918792 ####[place] [place] [address] cCl- Art 102.0 mmol/L Normal 101.0-111.0 [facility] Comment on above: Performed By: #### 4 68425256 ####[facility] [address] [place] [address] cGlu Art 127 mg/dL High 55-99 [facility] Comment on above: Performed By: #### 4 93835927 ####[place] [place] [address] cK+ Art 3.9 mmol/L Normal 3.5-5.3 [facility] Comment on above: Performed By: #### 4 31323310 ####[facility] [address] [place] [address] cLac Art .4 mmol/L Low .5-2.2 [facility] Comment on above: Performed By: #### 4 57858534 ####[facility] [address] [place] [address] automobile club information clerk+ Art 140.0 mmol/L Normal 135.0-145.0 [facility] Comment on above: Performed By: #### 4 47508128 ####[facility] [address] [place] [address] Drawn by tmj Invalid Interpretation Code [facility] Comment on above: Performed By: #### 4 48126581 ####[facility] [address] [place] [address] FCOHb Art 2.0 % Normal 1.5-4.9 [facility] Comment on above: Result Comment: Refe rence rangeNonsmoker <1.5%Smoker <5.0%Heavy Smoker <9.0% Performed By: #### 4 42346132 ####[facility] [address] [place] [address] FIO2 BG 21 Invalid Interpretation Code [facility] Comment on above: Performed By: #### 4 08314087 ####[facility] [address] [place] [address] FMetHb Art 0.9 % Normal 0.0-1.9 [facility] Comment on above: Performed By: #### 4 53063445 ####[facility] [address] [place] [address] FO2Hb Art 92.2 % Low 93.0-100.0 [facility] Comment on above: Performed By: #### 4 55395413 ####[facility] [address] [place] [address] HCO3 (Bld) [Moles/Vol] 25.8 mmol/L Normal 22.0-26.0 [facility] Comment on above: Performed By: #### 4 59506269 ####[facility] [address] [place] [address] Hemoglobin (Bld) [Mass/Vol] 10.7 g/dL Low 12.0-17.0 [facility] Comment on above: Performed By: #### 4 [id number] ####[facility] [address] [place] [address] Oxygen saturation in Blood 95.0 % Normal 95.0-100.0 [facility] Comment on above: Performed By: #### 4 [id number] ####[facility] [address] [place] [address] P CO2 Arterial 45.9 mmHg High 35.0-45.0 [facility] Comment on above: Performed By: #### 4 [id number] ####[address] [place] [address] P O2 Arterial 74.6 mmHg Low 80.0-100.0 [facility] Comment on above: Performed By: #### 4 [id number] ####[address] [place] [address] pH Arterial 7.381 Normal 7.350-7.450 [facility] Comment on above: Performed By: #### 4 [id number] ####[address] [address] Sample Site R Radial Normal [facility] Comment on above: Performed By: #### 4 [id number] ####[address] [address] Sample Type Arterial Draw Normal [facility] Comment on above: Performed By: #### 4 [id number] ####[address] [place] [address] CBC w/ Auto Diffon 3 Erythrocyte distribution width (RBC) [Ratio] 14.4 % High 10.9-14.2 [facility] Comment on above: Performed By: #### 1 0914209, 0832411, 82584487, 9550790, 0147057, 89413834, 6813674, 3467033 ####[facility] [address] [place] [address] Hematocrit (Bld) [Volume fraction] 35.4 % Low 37.7-49.0 [facility] Comment on above: Performed By: #### 1 4014776, 9412338, 63056371, 9638782, 4682681, 20453503, 7210641, 0282911 ####[facility] [address] [place] [address] Hemoglobin (Bld) [Mass/Vol] 11.6 g/dL Low 13.5-17.5 [facility] Comment on above: Performed By: #### 1 5236427, 3207465, 60736152, 9042397, 4595779, 31224343, 9297970, 6490931 ####[facility] [address] [place] [address] MCH (RBC) [Entitic mass] 28.3 pg Normal 27.0-34.0 [facility] Comment on above: Performed By: #### 1 7044059, 7757055, 94643267, 6477345, 8738560, 07085939, 5425350, 1429929 ####[facility] [address] [place] [address] MCHC (RBC) [Mass/Vol] 32.9 g/dL Normal 31.4-36.0 [facility] Comment on above: Performed By: #### 1 6285911, 6198236, 88287491, 1880832, 0461221, 88238848, 1437083, 8668882 ####[facility] [address] [place] [address] MCV (RBC) [Entitic vol] 85.9 fL Normal 80.0-100.0 [facility] Comment on above: Performed By: #### 1 2378470, 7765278, 54915754, 7317409, 3856091, 29778180, 0488786, 3062802 ####[facility] [address] [place] [address] Platelet mean volume (Bld) [Entitic vol] 9.5 fL Normal 6.4-10.8 [facility] Comment on above: Performed By: #### 1 9164198, 4338627, 24539047, 1157889, 8958113, 03122956, 4323005, 5813235 ####[facility] [address] [place] [address] Platelets (Bld) [#/Vol] 195.0 E9/L Normal 150.0-500.0 [facility] Comment on above: Performed By: #### 1 3505325, 6420020, 62930264, 8271562, 3853758, 67321919, 7386233, 8966207 ####[facility] [address] [place] [address] RBC (Bld) [#/Vol] 4.1 E12/L Low 4.3-5.9 [facility] Comment on above: Performed By: #### 1 2865235, 2232151, 93846429, 2143888, 5700117, 00622115, 1793813, 4626297 ####[facility] [address] [place] [address] WBC corrected for nucl RBC Auto (Bld) [#/Vol] 5.9 E9/L Normal 4.0-11.0 [facility] Comment on above: Performed By: #### 1 6186806, 2427719, 99167858, 8431954, 6397626, 74464099, 8028600, 7988049 ####[facility] [address] [place] [address] CHEMISTRYOrdered By: Lab ROP User on 02-13-2023 Glucose [Mass/Vol] 100 mg/dL High 55 - 99 mg/dL [facility] POC Subsection Comment on above: Result Comment: Clemente christopher RN/ POC Device SN [id number] Invalid Interpretation Code [facility] POC Subsection POC User ID [id number] Invalid Interpretation Code [facility] POC Subsection POC Username PALAK PEREIRA Invalid Interpretation Code [facility] POC Subsection Glucose [Mass/Vol] 124 mg/dL High 55 - 99 mg/dL [facility] POC Subsection POC Device SN [id number] Invalid Interpretation Code [facility] POC Subsection POC User ID [id number] Invalid Interpretation Code [facility] POC Subsection POC Username CHRIS BARRERA Invalid Interpretation Code [facility] POC Subsection CHEMISTRYOrdered By: SYSTEM SYSTEM on [...] Head or Brain w/o Contrast Normal [facility] Capillary Glucose POCon 02-02 Glucose [Mass/Vol] 100 mg/dL High 55-99 [facility] Comment on above: Result Comment: Clemente christopher RN/ Performed By: #### 2 [id number] ####[facility] [address] [place] [address] Glucose [Mass/Vol] 124 mg/dL High 55-99 [facility] Comment on above: Performed By: #### 2 [id number] ####[facility] [address] [place] [address] Consent for Treatmenton 02-02 Consent for Treatment [id number]#1. 00CD:127 Normal [facility] Consultation Noteon 02-14-20 Consultation Note Normal [facility] Comment on above: Result Comment: Elec tronically Signed By: Dax LEMONS, Mahesh Johns\.br\Date and Time Signed: 02/13/23 11:13 EDT DNR - Do Not Resuscitateon 0 02-13-2023 DNR - Do Not Resuscitate [id number]#1.0 0CD:127 Normal [facility] ED Clinical Summaryon 2022 ED Clinical Summary Normal [facility] ED Note-Physicianon 02-14-20 ED Note-Physician Normal [facility] Comment on above: Result Comment: Elec tronically Signed By: Shashi LEMONS, Jalen\.br\Date and Time Signed: 02/13/23 06:18 EDT ED Patient Education Noteon 02-13-2023 ED Patient Education Note Normal [facility] ED Patient Summaryon 023 ED Patient Summary Normal [facility] Ethanolon 02-13-2023 Ethanol [Mass/Vol] mg/dL Normal <=7 [facility] Comment on above: Performed By: #### 2 [id number] ####[facility] [address] [place] [address] FT Blood GasesOrdered By: Rex Ravi on 02-13-2023 a/A Ratio Art 79.30 % Normal >=0.80% [facility] Resp Auto SS AaDO2 Art 19.4 mm[Hg] High 5.0 - 15.0 mmHg [facility] Resp Auto SS Allens Test Positive (02/13/23 1:02 AM) Normal [facility] Resp Auto SS Base Excess Arterial 1.7 mmol/L Low >=2.8mmol/L FTM C Resp Auto SS cCa2+ Art 4.95 mg/dL Normal 4.40 - 5.30 mg/dL [facility] Resp Auto SS cCl- Art 102.0 mmol/L Normal 101.0 - 111.0 mmol/L [facility] Resp Auto SS cGlu Art 127 mg/dL High 55 - 99 mg/dL [facility] Resp Auto SS cK+ Art 3.9 mmol/L Normal 3.5 - 5.3 mmol/L [facility] Resp Auto SS cLac Art 0.4 mmol/L Low 0.5 - 2.2 mmol/L [facility] Resp Auto SS automobile club information clerk+ Art 140.0 mmol/L Normal 135.0 - 145.0 mmol/L [facility] Resp Auto SS Drawn by tmj Invalid Interpretation Code [facility] Resp Auto SS FCOHb Art 2.0 % Normal 1.5 - 4.9 % [facility] Resp Auto SS FIO2 BG 21 Invalid Interpretation Code [facility] Resp Auto SS FMetHb Art 0.9 % Normal 0.0 - 1.9 % [facility] Resp Auto SS FO2Hb Art 92.2 % Low 93.0 - 100.0 % [facility] Resp Auto SS HCO3 (Bld) [Moles/Vol] 25.8 mmol/L Normal 22.0 - 26.0 mmol/L [facility] Resp Auto SS Hemoglobin (Bld) [Mass/Vol] 10.7 g/dL Low 12.0 - 17.0 gm/dL [facility] Resp Auto SS P CO2 Arterial 45.9 mm[Hg] High 35.0 - 45.0 mmHg [facility] Resp Auto SS P O2 Arterial 74.6 mm[Hg] Low 80.0 - 100.0 mmHg [facility] Resp Auto SS pH Arterial 7.381 Normal 7.350 - 7.450 [facility] Resp Auto SS Sample Site R Radial (02/13/23 1:02 AM) Normal [facility] Resp Auto SS Sample Type Arterial Draw [...] 85.9 fL Normal 80.0 - 100.0 fL [facility] HemeAutoSS Platelet mean volume (Bld) [Entitic vol] 9.5 fL Normal 6.4 - 10.8 fL [facility] HemeAutoSS Platelets (Bld) [#/Vol] 195.0 E9/L Normal 150.0 - 500.0 E9/L [facility] HemeAutoSS RBC (Bld) [#/Vol] 4.1 E12/L Low 4.3 - 5.9 E12/L [facility] HemeAutoSS WBC corrected for nucl RBC Auto (Bld) [#/Vol] 5.9 E9/L Normal 4.0 - 11.0 E9/L [facility] HemeAutoSS Heart and Vascular Office/Cl inic Noteon 02-13-2023 Heart and Vascular Office/Clinic Note Normal [facility] Comment on above: Result Comment: Elec tronically Signed By: Bushra JIMENEZ CNP\.br\Date and Time Signed: 02/13/23 15:11 EDT Hep Func Panelon 02-13-2023 Albumin [Mass/Vol] 3.7 g/dL Normal 3.3-5.0 [facility] Comment on above: Performed By: #### 1 0328143, 7149681, 54663066, 8907411, 6652400, 49523039, 6253015, 2961096 ####[facility] [address] [place] [address] Albumin/Globulin (S) [Mass conc ratio] 1.2 Normal 1.1-2.2 [facility] Comment on above: Performed By: #### 1 7283345, 9167713, 43026238, 2805972, 7096574, 60950066, 7252964, 2579612 ####[facility] [address] [place] [address] ALP [Catalytic activity/Vol] 63 Int._Unit/L Normal 21-98 [facility] Comment on above: Performed By: #### 1 9551496, 5449431, 25307910, 5775769, 5802833, 39691884, 2440259, 6828553 ####[facility] [address] [place] [address] ALT No additional P-5'-P [Catalytic activity/Vol] 10 Int._Unit/L Normal 6-46 [facility] Comment on above: Performed By: #### 1 9513129, 4647119, 33077481, 5650362, 1699859, 65237395, 6047097, 3328719 ####[facility] [address] [place] [address] AST [Catalytic activity/Vol] 13 Int._Unit/L Normal 5-43 [facility] Comment on above: Performed By: #### 1 6505476, 3290363, 03828630, 9511384, 6008619, 81002418, 4464481, 1186279 ####[facility] [id number] Bilirubin [Mass/Vol] 0.6 mg/dL Normal 0.0-1.1 [facility] Comment on above: Performed By: #### 1 5334176, 7529023, 57651146, 9015773, 3098849, 88247927, 3342811, 6560995 ####[facility] [address] Bilirubin.direct [Mass/Vol] 0.1 mg/dL Normal 0.1-0.4 [facility] Comment on above: Performed By: #### 1 8843925, 1523016, 61367565, 7392663, 0181306, 68539421, 5738914, 6262809 ####[facility] [address] [place] [address] Bilirubin.indirect [Mass or moles/Vol] 0.5 mg/dL Normal 0.1-0.9 [facility] Comment on above: Performed By: #### 1 9500361, 5295709, 82353671, 7864519, 5274337, 90547474, 2704376, 2726834 ####[facility] [address] [place] [address] Globulin (S) [Mass/Vol] 3.0 g/dL Normal 1.4-4.0 [facility] Comment on above: Performed By: #### 1 7423268, 7527893, 45947093, 6051521, 0348773, 07694323, 3455704, 1037435 ####[facility] [address] [place] [address] Protein [Mass/Vol] 6.7 g/dL Normal 6.0-7.8 [facility] Comment on above: Performed By: #### 1 8249966, 3183075, 66568957, 4773791, 9370188, 96344796, 2824489, 4108042 ####[facility] [address] [place] [address] Inpatient Clinical Summaryon 02-13-2023 Inpatient Clinical Summary Normal [facility] Inpatient Patient Summaryon 02-13-2023 Inpatient Patient Summary Normal [facility] Interdisciplinary Note - Hortensia n 02-13-2023 Interdisciplinary Note - OT Normal [facility] Interdisciplinary Note - PTo n 02-13-2023 Interdisciplinary Note - PT Normal [facility] LEVETIRACETAM, SERUM OR PLAS MAon 02-13-2023 Levetiracetam, S 40.4 ug/mL Critically high 10.0-40.0 [facility] Comment on above: Performed By: #### K DAV ####[facility] [address] [place], [place] [address]So. Areli Yousif Monitor Recordon 02-13-2023 Monitor Record [id number]#1. 00CD:127 Normal [facility] Monitor Record [id number]#1. 00CD:127 Normal [facility] Monitor Record [id number]#1. 00CD:127 Normal [facility] Fci Recordson 02-13 [facility]ci Records [id number] 0CD:127 Normal [facility] PT & PTTon 02-13-2023 aPTT Coag (PPP) [Time] 31.8 second(s) Normal 25.1-36.5 [facility] Comment on above: Result Comment: Para [...] the same coagulation reagent and instrumentation as [facility]. Currently there are no coagulation studies available worldwide for children to 14 days, and no normal ranges. Heparin therapeutic range (represented by Anti-Factor Xa activity of 0.2 - 0.4 U/mL) corresponds to PTT of 56.6 - 109.0 sec. Performed By: #### 1 0031704, 0396773, 94287460, 4156851, 6497531, 23613317, 3892839, 2270973 ####[facility] [address] [place] [address] INR Coag (PPP) [Relative time] 1.1 {INR} Invalid Interpretation Code [facility] Comment on above: Result Comment: INR results are specifically intended to assess patients stabilized on long-term Anticoagulation therapy suggested INR?s ?Less Intensive Anticoagulation? 2.0 ? 3.0Conventional Range 3.0 ? 4.5 Performed By: #### 1 4565515, 8195598, 47775747, 5286060, 5737744, 30642399, 9998714, 8287929 ####[facility] [address] [place] [address] PT Coag (PPP) [Time] 11.9 second(s) Normal 9.4-12.5 [facility] Comment on above: Result Comment: 15 [...] the same coagulation reagent and instrumentation as [facility]. Currently there are no coagulation studies available worldwide for children to 14 days, and no normal ranges. Performed By: #### 1 4170581, 2814799, 65529964, 0908521, 4762299, 05046996, 4257259, 6569463 ####[facility] [address] [place] [address] Patient Education - Texton 0 02-13-2023 Patient Education - Text Normal [facility] RAD - Preliminary Cat Scan R eporton 02-13-2023 RAD - Preliminary Cat Scan Report [id number] 0CD:127 Normal [facility] Reference Laboratory Testing Ordered By: [place] DomainUser on 02-13-2023 Cortisol [Mass/Vol] 22.4 ug/dL High 6.2-19.4 mcg/ dL [facility] SendOutsSS Comment on above: Result Comment: Sandy denton Note: The reference interval and flagging for this test is for an AM collection. If this is a PM collection please use: Cortisol PM: 2.3-11.9 Performed at: [facility] [id number] [place], [place] [id number] PhD Desmond Jimenez Cortisol [Mass/Vol] 18.8 ug/dL Invalid Interpretation Code 6.2-19.4mcg/ dL [facility] SendOutsSS Comment on above: Result Comment: Sandy denton Note: The reference interval and flagging for this test is for an AM collection. If this is a PM collection please use: Cortisol PM: 2.3-11.9 Performed at: [facility] [address] [place], [place] [id number] PhD Desmond Tony Troponin 0 Hr.on 02-13-2023 Troponin I.cardiac [Mass/Vol] 5.80 pg/mL Low 15.90-38.40 [facility] Comment on above: Result Comment: The 95% CI (Confidence Interval) PPV (Positive Predictive Value) for myocardial infarction in females is 38 pg/mL, in males 51 pg/mL. The results should be used in conjunction with clinical conditions of myocardial infarction.(140 Proof High Sensitivity Troponin I Instructions For Use, Buck Mason, May 2018) Performed By: #### 1 8236302, 2459780, 29166806, 4241810, 4988972, 52610322, 6439954, 5382650 ####[facility] [address] [place] [address] Troponin 6 Hr.on 02-13-2023 Troponin I.cardiac [Mass/Vol] 6.60 pg/mL Low 15.90-38.40 [facility] Comment on above: Result Comment: The 95% CI (Confidence Interval) PPV (Positive Predictive Value) for myocardial infarction in females is 38 pg/mL, in males 51 pg/mL. The results should be used in conjunction with clinical conditions of myocardial infarction.(140 Proof High Sensitivity Troponin I Instructions For Use, Buck Mason, May 2018) Performed By: #### 1 [id number] ####[address] [place] [address] U Drug Screenon 02-13-2023 Amphetamines Screen method >1000 ng/mL Ql (U) Negative Normal Negative [facility] Comment on above: Result Comment: Nega tive Cutoff: <1000 ng/mL Performed By: #### 2 448563 ####[facility] [address] [place] [address] Barbiturates Screen Ql (U) Negative Normal Negative [facility] Comment on above: Result Comment: Nega tive Cutoff: <200 ng/mL Performed By: #### 2 036615 ####[facility] [address] [place] [address] Benzodiazepines Ql (U) Negative Normal Negative [facility] Comment on above: Result Comment: Nega tive Cutoff: <200 ng/mL Performed By: #### 2 489639 ####[facility] [address] [place] [address] Cocaine Ql (U) Negative Normal Negative [facility] Comment on above: Result Comment: Nega tive Cutoff: <300 ng/mL Performed By: #### 2 831500 ####[facility] [address] [place] [address] Opiates Screen Ql (U) Negative Normal Negative [facility] Comment on above: Result Comment: Nega tive Cutoff: <300 ng/mL Performed By: #### 2 221927 ####[facility] [address] [place] [address] Phencyclidine Screen method >25 ng/mL Ql (U) Negative Normal Negative [facility] Comment on above: Result Comment: Nega tive Cutoff: <25 ng/mLThese drug screen results are to be used for medical (i.e., treatment) purposes only. Unconfirmed drug screening results must not be used for non-medical purposes (e.g., employment testing, legal testing). Performed By: #### 2 686425 ####[facility] [address] [place] [address] Tetrahydrocannabinol Screen method >50 ng/mL Ql (U) Negative Normal Negative [facility] Comment on above: Result Comment: Nega tive Cutoff: <50 ng/mL Performed By: #### 2 762224 ####[facility] [address] [place] [address] UA With Cult Reflexon 2022 Bacteria LM Ql (Urine sed) TRACE Normal Trace [facility] Comment on above: Performed By: #### 1 0996207 ####[facility] [address] [place] [address] Bilirubin Ql (U) Negative Normal Negative [facility] Comment on above: Performed By: #### 1 9483619 ####[facility] [address] [place] [address] Clarity (U) CLEAR Normal Clear [facility] Comment on above: Performed By: #### 1 5964476 ####[address] [address] Color (U) YELLOW Normal Yellow [facility] Comment on above: Performed By: #### 1 9890342 ####[address] [address] Epithelial cells.squamous LM.HPF (Urine sed) [#/Area] 0-2 Normal 0-2 [facility] Comment on above: Performed By: #### 1 0904665 ####[address] [address] Glucose Test strip (U) [Mass/Vol] Negative Normal Negative [facility] Comment on above: Performed By: #### 1 3797974 ####[address] [address] Hemoglobin Ql (U) Negative Normal Negative [facility] Comment on above: Performed By: #### 1 3617448 ####[address] [address] Ketones (U) [Mass/Vol] Negative Normal Negative [facility] Comment on above: Performed By: #### 1 0042395 ####[address] [address] [place].plasma/[place] .RBC (Bld) [Mass ratio] 0-3 Normal 0-3 [facility] Comment on above: Performed By: #### 1 5133613 ####[address] [address] Nitrite Ql (U) Negative Normal Negative [facility] Comment on above: Performed By: #### 1 0769313 ####[address] [address] pH (U) 6.0 [pH] Invalid Interpretation Code 5.0-9.0 [facility] Comment on above: Performed By: #### 1 1521506 ####[facility] [address] [place] [address] Protein (U) [Mass/Vol] TRACE Abnormal Negative [facility] Comment on above: Performed By: #### 1 9206666 ####[facility] [address] [place] [address] Specific gravity (U) [Rel density] 1.010 Invalid Interpretation Code 1.005-1.030 [facility] Comment on above: Performed By: #### 1 8930116 ####[address] [address] Type of Urine collection method Catheter Normal [facility] Comment on above: Performed By: #### 1 4747954 ####[address] [address] Urobilinogen Qn (U) 0.2 {Alyssia'U}/dL Normal 0.0-1.0 [facility] Comment on above: Performed By: #### 1 3131046 ####[address] [address] WBC Auto Ql (U) Negative Normal Negative [facility] Comment on above: Performed By: #### 1 9925619 ####[address] [address] WBC LM.HPF (Urine sed) [#/Area] 0-5 Normal 0-5 [facility] Comment on above: Performed By: #### 1 7714628 ####[address] [address] URINALYSISOrdered By: Gilmer Coronado on 02-13-2023 Bacteria [...] AM) Normal Negative [facility] UA Auto SS [place].plasma/[place] .RBC (Bld) [Mass ratio] 0-3 /HPF Normal 0-3/HPF [facility] UA Auto SS Nitrite Ql (U) Negative (02/13/23 3:34 AM) Normal Negative [facility] UA Auto SS pH (U) 6.0 *NA* (02/13/23 3:34 AM) Invalid Interpretation Code 5.0 - 9.0 [facility] UA Auto SS Protein (U) [Mass/Vol] Trace *ABN* (02/13/23 3:34 AM) Invalid Interpretation Code Negative [facility] UA Auto SS Specific gravity (U) [Rel density] 1.010 *NA* (02/13/23 3:34 AM) Invalid Interpretation Code 1.005 - 1.030 [facility] UA Auto SS UA Spec Desc Catheter (02/13/23 3:34 AM) Normal [facility] UA Auto SS Urobilinogen Qn (U) 0.0914881 {Alyssia'U}/dL Normal 0.0 - 1.0 EU/dL [facility] UA Auto SS WBC Auto Ql (U) Negative (02/13/23 3:34 AM) Normal Negative [facility] UA Auto SS WBC LM.HPF (Urine sed) [#/Area] 0-5 /HPF Normal 0-5/HPF [facility] UA Auto SS XR Chest Single Viewon 02-13 XR Chest Single View Normal [facility] eGFRon 02-13-2023 GFR/1.73 sq M.predicted among non-blacks MDRD (S/P/Bld) [Vol rate/Area] 65 mL/min/1.73 m2 Normal >=59 [facility] [facility] Comment on above: Order Comment: Order added by Discern Expert. Result Comment: Station Helper lokesh kidney disease could be indicated at eGFR's of less than 60 mL/min/1.73m2. Kidney failure is indicated at less than 15 mL/min/1.73m2. Performed By: #### 1 [id number], 7853138, 94511901, 9367354, 6903193, 69992810, 8904576, 8360378 ####[facility] [address] [place] [address] CBC AUTO DIFFon 02-11-2023 BASO # 0.0 103/ul Normal 0.0-0.1 [facility] Comment on above: Performed By: #### C BC ####[facility] [address]vyxa[address] [place] [id number]. Tabbytulio Yousif Basophils/100 WBC (Bld) 0.7 % Normal 0.2-2.0 [facility] Comment on above: Performed By: #### C BC ####[facility] [address] [place], [place] [address]Dr. Areli Yousif EO # 0.6 103/ul Normal 0.0-0.7 [facility] Comment on above: Performed By: #### C BC ####[facility] Or[address]xwxlh48[address] [place] [id number]. Areli Yousif Eosinophils/100 WBC (Bld) 9.1 % Critically high 0.9-7.0 [facility] Comment on above: Performed By: #### C BC ####[facility] [address]xdjrt[address] [place] [id number]. Areli Yousif Erythrocyte distribution width (RBC) [Ratio] 13.2 % Normal 11.0-15.0 [facility] Comment on above: Performed By: #### C BC ####[facility] [address] [place], [place] [address]Dr. Areli Yousif Hematocrit (Bld) [Volume fraction] 35.7 % Critically low 42.0-54.0 [facility] Comment on above: Performed By: #### C BC ####[facility] [address] [place], [place] [address]Dr. Areli Yousif Hemoglobin (Bld) [Mass/Vol] 11.4 g/dL Critically low 14.0-18.0 [facility] Comment on above: Performed By: #### C BC ####[facility] Cvx[address]pmhekd[address] [place] [id number]. Areli Yousif IG # 0.02 10e3/ul Normal 0.00-0.03 [facility] Comment on above: Performed By: #### C BC ####[facility] [address]ggbbdpb94[address] [place] [id number]. Areli Yousif IG % 0.3 % Normal 0.0-0.5 [facility] Comment on above: Performed By: #### C BC ####[facility] [address]bfz[address] [place] [address]Dr. Areli Yousif LYMPH # 2.0 103/ul Normal 1.2-3.8 [facility] Comment on above: Performed By: #### C BC ####[facility] [address] [place] [address]Dr. Areli Yousif Lymphocytes/100 WBC (Bld) 33.8 % Normal 20.5-60.0 [facility] Comment on above: Performed By: #### C BC ####[facility] Rxykkxuqmx[address] [place] [id number]. Areli Yousif MANUAL DIFF REQ NO Normal [facility] Comment on above: Performed By: #### C BC ####[facility] [address]lur[address] [place] [id number]. Areli Yousif MCH (RBC) [Entitic mass] 28.5 pg Normal 25.9-34.0 [facility] Comment on above: Performed By: #### C BC ####[facility] [address] [place], [place] [address]Dr. Areli Yousif MCHC (RBC) [Mass/Vol] 31.9 g/dL Normal 29.9-35.2 [facility] Comment on above: Performed By: #### C BC ####[facility] Qfuxbxilrv44[address] [place] [id number]. Areli Yousif MCV (RBC) [Entitic vol] 89.3 fL Normal 80.0-94.0 [facility] Comment on above: Performed By: #### C BC ####[facility] [address]vnab[address] [place] [address]Dr. Areli Yousif MONO # 0.4 103/ul Normal 0.3-0.8 [facility] Comment on above: Performed By: #### C BC ####[facility] [address]xsl[address]qza[address] [place] [address]Dr. Areli Yousif Monocytes/100 WBC (Bld) 6.6 % Normal 1.7-12.0 [facility] Comment on above: Performed By: #### C BC ####[facility] [address]df[address]wnh[address] [place] [address]Dr. Areli Yousif NEUT # 3.0 103/ul Normal 1.4-6.5 [facility] Comment on above: Performed By: #### C BC ####[facility] [address]vglijkvo[address] [place] [id number]. Areli Yousif Neutrophils/100 WBC (Bld) 49.5 % Normal 43.0-75.0 [facility] Comment on above: Performed By: #### C BC ####[facility] [address]mfduy[address] [place] [address]Dr. Areli Yousif Platelet mean volume (Bld) [Entitic vol] 11.2 fL Normal 9.5-13.5 [facility] Comment on above: Performed By: #### C BC ####[facility] Xrnnihfvss[address] [place] [address]Dr. Areli Yousif PLT 244 103/ul Normal 150-450 [facility] Comment on above: Performed By: #### C BC ####[facility] Abyzcfuxsg[address] [place] [address]Dr. Areli Yousif RBC 4.00 106/ul Critically low 4.70-6.[address] [facility] Comment on above: Performed By: #### C BC ####[facility] [address]akq[address] [place] [id number]. Areli Yousif WBC 6.0 103/ul Normal 4.0-11.0 [facility] Comment on above: Performed By: #### C BC ####[facility] [address] [place] [address]Dr. Areli Yousif Consent for Treatmenton 02-02 Consent for Treatment [id number]#1.0 0CD:127 Normal [facility] Outside Cardiovascularon Outside Cardiovascular [id number]#1.0 0CD:127 Normal [facility] Outside Cardiovascular [id number] [id number]#1.0 0CD:127 Normal [facility] PROF 14(COMP METB)on 023 Albumin [Mass/Vol] 3.2 g/dL Critically low 3.4-5.0 [facility] Comment on above: Performed By: #### C MP ####[facility] [address] [place] [address]Dr. Areli Yousif Albumin/Globulin [Mass ratio] 0.9 {ratio} Normal [facility] Comment on above: Performed By: #### C MP ####[facility] [address]wm[address] [place] [address]Dr. Areli Yousif ALP [Catalytic activity/Vol] 77 U/L Normal 46-116 [facility] Comment on above: Performed By: #### C MP ####[facility] D[address]ai[address]jj[address] [place] [address]Dr. Areli Yousif ALT [Catalytic activity/Vol] 14 U/L Critically low 16-63 [facility] Comment on above: Performed By: #### C MP ####[facility] X[address]zikq[address] [place] [address]Dr. Areli Yousif Anion gap [Moles/Vol] 12.1 mmol/L Normal [facility] Comment on above: Performed By: #### C MP ####[facility] [address]ib[address]th[address] [place] [address]Dr. Areli Yousif AST [Catalytic activity/Vol] 8 U/L Critically low 15-37 [facility] Comment on above: Performed By: #### C MP ####[facility] N[address]inc[address]was[address] [place] [id number]. Areli Yousif Bilirubin [Mass/Vol] 0.3 mg/dL Normal 0.2-1.0 [facility] Comment on above: Performed By: #### C MP ####[facility] [address] [place] [id number]. Areli Yousif Calcium [Mass/Vol] 9.1 mg/dL Normal 8.5-10.1 [facility] Comment on above: Performed By: #### C MP ####[facility] [address]cs[address] [place] [address]Dr. Areli Yousif Chloride [Moles/Vol] 106 mmol/L Normal 98-107 [facility] Comment on above: Performed By: #### C MP ####[facility] Z[address]dyda[address] [place] [address]Dr. Areli Yousif CO2 [Moles/Vol] 28.9 mmol/L Normal 21.0-32.0 [facility] Comment on above: Performed By: #### C MP ####[facility] Rx[address]exhz[address] [place], [place] [address]Dr. Areli Yousif Creatinine [Mass/Vol] 1.20 mg/dL Normal 0.70-1.30 [facility] Comment on above: Performed By: #### C MP ####[facility] [address]jpwr[address] [place] [address]Dr. Areli Yousif EGFR-AF MONEGASQUE >60 Normal >=60 [facility] Comment on above: Performed By: #### C MP ####[facility] Q[address] [place], [place] [address]Dr. Areli Yousif EGFR-NON AF MONEGASQUE =60 Normal >=60 [facility] Comment on above: Performed By: #### C MP ####[facility] [address] [place], [place] [address]Dr. Areli Yousif Globulin (S) [Mass/Vol] 3.6 g/dL Normal [facility] Comment on above: Performed By: #### C MP ####[facility] [address] [place], [place] [address]Dr. Areli Yousif Glucose [Mass/Vol] 120 mg/dL Critically high 74-106 [facility] Comment on above: Performed By: #### C MP ####[facility] [address]uy[address] [place] [address]Dr. Areli Yousif Potassium [Moles/Vol] 4.0 mmol/L Normal 3.5-5.1 [facility] Comment on above: Performed By: #### C MP ####[facility] Xtlypvihkt[address] [place] [address]Dr. Areli Yousif Protein [Mass/Vol] 6.8 g/dL Normal 6.4-8.2 [facility] Comment on above: Performed By: #### C MP ####[facility] [address] [place] [address]Dr. Areli Yousif Sodium [Moles/Vol] 143 mmol/L Normal 136-145 [facility] Comment on above: Performed By: #### C MP ####[facility] [address]spd[address] [place] [address]Dr. Areli Yousif Urea nitrogen [Mass/Vol] 33.0 mg/dL Critically high 7.0-18.0 [facility] Comment on above: Performed By: #### C MP ####[facility] [address] [place] [address]Dr. Areli Yousif Urea nitrogen/Creatinine [Mass ratio] 27.5 mg/mg Normal [facility] Comment on above: Performed By: #### C MP ####[facility] [address] [place] [address]Dr. Areli Benja Physician Orderon 02-11-2023 Physician Order [id number]#1. 00CD:127 Normal [facility] Progress Note-Physicianon Progress Note-Physician [id number]#1. 00CD:127 Normal [facility] Coding Summary.on 02-03-2023 Coding Summary. Normal [facility] Coding Queryon 02-01-2023 Coding Query Normal [facility] Consenton 01-29-2023 Consent [id number]#1. 00CD:127 Normal [facility] DNR - Do Not Resuscitateon 0 01-29-2023 DNR - Do Not Resuscitate [id number]#1. 00CD:127 Normal [facility] Discharge Instructionson Discharge Instructions [id number]#1. 00CD:127 Normal [facility] Transfer Documentson 023 Transfer Documents [id number]#1. 00CD:127 Normal [facility] EEGon 01-28-2023 EEG Normal [facility] Comment on above: Result Comment: Elec tronically Signed By: Lg LEMONS, Lilia\.br\Date and Time Signed: 01/28/23 09:38 EDT Cortisolon 01-27-2023 Cortisol [Mass/Vol] 9.4 microgram/dL Invalid Interpretation Code 6.2-19.4 [facility] Comment on above: Result Comment: Sandy denton Note: The reference interval and flagging forthis test is for an AM collection. If this is a PMcollection please use: Cortisol PM: 2.3-11.9[facility] also offers:[id number]: Cortisol- [id number]: Cortisol- PMPerformed at: [facility] [address] [id number] PhD Desmond Jimenez Performed By: #### 2 [id number] ####[facility] [address] [place] [address] CHEMISTRYOrdered By: Arpita ROP User on 01-26-2023 Glucose [Mass/Vol] 156 mg/dL High 55 - 99 mg/dL [facility] POC Subsection Comment on above: Result Comment: Alida renetta Meter POC Device SN [id number] Invalid Interpretation Code [facility] POC Subsection POC User ID [id number] Invalid Interpretation Code [facility] POC Subsection POC Username JOSE RAFAEL PAGE Invalid Interpretation Code [facility] POC Subsection Glucose [Mass/Vol] 140 mg/dL High 55 - 99 mg/dL [facility] POC Subsection Comment on above: Result Comment: Alida renetta Meter POC Device SN [id number] Invalid Interpretation Code [facility] POC Subsection POC User ID [id number] Invalid Interpretation Code [facility] POC Subsection POC Username JOSE RAFAEL PAGE Invalid Interpretation Code [facility] POC Subsection Capillary Glucose POCon 01-04 Glucose [Mass/Vol] 156 mg/dL High 55-99 [facility] Comment on above: Result Comment: Alida renetta Meter Performed By: #### 2 [id number] ####[facility] [address] [address] Glucose [Mass/Vol] 140 mg/dL High 55-99 [facility] Comment on above: Result Comment: Alida renetta Meter Performed By: #### 2 [id number] ####[facility] [address] Ave[address]law[address] [address] Discharge Note-Nursingon Discharge Note-Nursing Normal [facility] EEGon 01-26-2023 EEG Normal [facility] Comment on above: Result Comment: Elec tronically Signed By: Lilia Castanon MD\.br\Date and Time Signed: 01/26/23 11:16 EDT EEG Normal [facility] Comment on above: Result Comment: Elec tronically Signed By: Lilia Castanon MD\.br\Date and Time Signed: 01/26/23 11:15 EDT Inpatient Clinical Summaryon 01-26-2023 Inpatient Clinical Summary Normal [facility] Inpatient Patient Summaryon 01-26-2023 Inpatient Patient Summary Normal [facility] Interdisciplinary Note - Hermelindo e Manageron 01-26-2023 Interdisciplinary Note - Director Of Media Normal [facility] Comment on above: Result Comment: Elec tronically Signed By: Meredith Reilly RN\.br\Date and Time Signed: 01/26/23 13:16 EDT Interdisciplinary Note - Nut ritionon 01-26-2023 Interdisciplinary Note - Nutrition Normal [facility] Comment on above: Result Comment: Elec tronically Signed By: Carmen DIAZ, Linda MATHIS\.br\Date and Time Signed: 01/26/23 09:05 EDT Monitor Recordon 01-26-2023 Monitor Record [id number]#1. 00CD:127 Normal [facility] Monitor Record [id number]#1. 00CD:127 Normal [facility] Monitor Record [id number]#1. 00CD:127 Normal [facility] Progress Note-Physicianon Progress Note-Physician Normal [facility] Comment on above: Result Comment: Elec tronically Signed By: Rajni Chávez RN\.br\Date and Time Signed: 01/26/23 07:26 EDT\.br\Electronically Co-Signed By: Lilia Castanon MD\.br\Date and Time Co-Signed: 01/26/23 11:59 EDT CHEMISTRYOrdered By: Lab ROP User on 01-25-2023 Glucose [Mass/Vol] 208 mg/dL High 55 - 99 mg/dL [facility] POC Subsection Comment on above: Result Comment: Clemente MCCLAIN POC Device SN [id number] Invalid Interpretation Code [facility] POC Subsection POC User ID [id number] Invalid Interpretation Code [facility] POC Subsection POC Username RICKY SHIN Invalid Interpretation Code [facility] POC Subsection Capillary Glucose POCon 01-04 Glucose [Mass/Vol] 208 mg/dL High 55-99 [facility] Comment on above: Result Comment: Clemente MCCLAIN Performed By: #### 2 [id number] ####[facility] [address] [place] [address] Glucose [Mass/Vol] 152 mg/dL High 55-99 [facility] Comment on above: Result Comment: Clemente MCCLAIN Performed By: #### 2 [id number] ####[facility] [address] [place] [address] Glucose [Mass/Vol] 214 mg/dL High 55-99 [facility] Comment on above: Result Comment: Clemente MCCLAIN Performed By: #### 2 [id number] ####[facility] [address] [place] [address] Glucose [Mass/Vol] 151 mg/dL High 55-99 [facility] Comment on above: Result Comment: Clemente MCCLAIN Performed By: #### 2 [id number] ####[facility] [address] [place] [address] Monitor Recordon 01-25-2023 Monitor Record [id number]#1. 00CD:127 Normal [facility] Monitor Record [id number]#1. 00CD:127 Normal [facility] Monitor Record [id number]#1. 00CD:127 Normal [facility] Monitor Record [id number]#1. 00CD:127 Normal [facility] Monitor Record [id number]#1. 00CD:127 Normal [facility] Progress Note-Physicianon Progress Note-Physician [facility] Comment on above: Result Comment: Elec tronically Signed By: John Lyn MD\.br\Date and Time Signed: 01/25/23 10:38 EDT Progress Note-Physician [facility] Comment on above: Result Comment: Elec tronically Signed By: Tobin GONZALEZ, Fallon\.br\Date and Time Signed: 01/25/23 07:45 EDT\.br\Electronically Co-Signed By: Lilia Castanon MD\.br\Date and Time Co-Signed: 01/25/23 10:01 EDT Auto Diffon 01-24-2023 Basophils/100 WBC (Bld) 0.9 % Normal 0.0-2.0 [facility] Comment on above: Order Comment: Order Added by Discern Expert. Performed By: #### 2 076020, 2199604, 3884165, 3527889, 54648434, 7086464 ####[facility] [address] [place] [address] Basophils/Leukocytes Auto (Bld) [Pure # fraction] 0.1 E9/L Normal 0.0-0.2 [facility] Comment on above: Order Comment: Order Added by Discern Expert. Performed By: #### 2 183762, 9033503, 9953198, 9217722, 63550701, 8169255 ####[place] [address] [place] [address] Eosinophils/100 WBC (Bld) 8.7 % High 0.0-8.0 [facility] Comment on above: Order Comment: Order Added by Discern Expert. Performed By: #### 2 886544, 3151477, 2286539, 3577773, 10613924, 4405724 ####[address] [address] Eosinophils/Leukocytes Auto (Bld) [Pure # fraction] 0.6 E9/L High 0.0-0.5 [facility] Comment on above: Order Comment: Order Added by Discern Expert. Performed By: #### 2 247112, 6217856, 9328332, 4420661, 04481168, 9507069 ####[address] [address] Lymphocytes/100 WBC (Bld) 38.0 % Normal 14.0-50.0 [facility] Comment on above: Order Comment: Order Added by Discern Expert. Performed By: #### 2 194960, 3456077, 1878787, 3321299, 87840596, 6564119 ####[address] [address] Lymphocytes/Leukocytes Auto (Bld) [Pure # fraction] 2.7 E9/L Normal 1.0-4.0 [facility] Comment on above: Order Comment: Order Added by Discern Expert. Performed By: #### 2 785349, 2570151, 9898577, 6514838, 64114670, 3738446 ####[facility] [address] [place] [address] Monocytes/100 WBC (Bld) 8.2 % Normal 4.0-14.0 [facility] Comment on above: Order Comment: Order Added by Pearl Expert. Performed By: #### 2 155276, 3406529, 9987242, 6731963, 31204557, 8031944 ####[facility] [address] [place] [address] Monocytes/Leukocytes Auto (Bld) [Pure # fraction] 0.6 E9/L Normal 0.2-1.0 [facility] Comment on above: Order Comment: Order Added by Pearl Expert. Performed By: #### 2 777949, 4875464, 7667339, 0127946, 12982055, 4465588 ####[place] [address] [place] [address] Neutrophils/100 WBC (Bld) 44.2 % Normal 36.0-75.0 [facility] Comment on above: Order Comment: Order Added by Pearl Expert. Performed By: #### 2 756975, 7887632, 1891590, 4327202, 38821838, 2917414 ####[facility] [address] [place] [address] Neutrophils/Leukocytes Auto (Bld) [Pure # fraction] 3.1 E9/L Normal 2.0-7.5 [facility] Comment on above: Order Comment: Order Added by Pearl Expert. Performed By: #### 2 948702, 5608350, 1695470, 1481999, 66945518, 7858500 ####[facility] [address] [place] [address] BMPon 01-24-2023 Anion gap [Moles/Vol] 10 mmol/L Normal 6-16 [facility] Comment on above: Performed By: #### 2 758079, 6280569, 7147193, 5455400, 38085277, 9952137 ####[facility] [address] [place] [address] Calcium [Mass/Vol] 8.7 mg/dL Low 8.9-11.1 [facility] Comment on above: Performed By: #### 2 445214, 7241048, 6790026, 4493699, 69233325, 2534209 ####[facility] [address] [place] [address] Chloride [Moles/Vol] 106 mmol/L Normal 101-111 [facility] Comment on above: Performed By: #### 2 576532, 2996327, 0840817, 8339308, 15987072, 3868158 ####[facility] [address] [place] [address] CO2 [Moles/Vol] 28 mmol/L Normal 21-31 [facility] Comment on above: Performed By: #### 2 468805, 6501502, 7298488, 8262841, 76095490, 5405634 ####[facility] [address] [place] [address] Creatinine [Mass/Vol] 1.0 mg/dL Normal 0.5-1.3 [facility] Comment on above: Performed By: #### 2 949409, 7612583, 2507908, 8552450, 33159229, 5912237 ####[facility] [address] [place] [address] Glucose [Mass/Vol] 163 mg/dL Normal 55-199 [facility] Comment on above: Result Comment: If t his glucose result represents a fasting glucose, interpretation should refer to the following reference range: 55-99 mg/dL Performed By: #### 2 394194, 3807790, 9622874, 8976169, 72548988, 9181021 ####[facility] [address] [place] [address] Potassium [Moles/Vol] 3.9 mmol/L Normal 3.5-5.3 [facility] Comment on above: Performed By: #### 2 344497, 9357148, 3174386, 8691843, 80401682, 3004702 ####[facility] [address] [place] [address] Sodium [Moles/Vol] 140 mmol/L Normal 135-145 [facility] Comment on above: Performed By: #### 2 180827, 9780541, 8949560, 1058358, 70838876, 0045833 ####[facility] [address] [place] [address] Urea nitrogen [Mass/Vol] 24 mg/dL High 5-21 [facility] Comment on above: Performed By: #### 2 156893, 7131970, 0935182, 5937671, 73289391, 2439088 ####[facility] [address] [place] [address] Urea nitrogen/Creatinine [Mass ratio] 24 No Units High 10-20 [facility] Comment on above: Performed By: #### 2 972487, 4301753, 9002987, 6911536, 62471166, 1981390 ####[facility] [address] [place] [address] CBC w/ Auto Diffon 3 Erythrocyte distribution width (RBC) [Ratio] 14.8 % High 10.9-14.2 [facility] Comment on above: Performed By: #### 2 609274, 3590244, 6175908, 2791909, 70442530, 7393197 ####[place] [address] [place] [address] Hematocrit (Bld) [Volume fraction] 34.1 % Low 37.7-49.0 [facility] Comment on above: Performed By: #### 2 486629, 0644907, 3981741, 8418491, 86620255, 0883232 ####[facility] [address] [place] [address] Hemoglobin (Bld) [Mass/Vol] 11.2 g/dL Low 13.5-17.5 [facility] Comment on above: Performed By: #### 2 002439, 9311966, 9685358, 3070001, 09408030, 9826418 ####[address] [place] [address] MCH (RBC) [Entitic mass] 28.3 pg Normal 27.0-34.0 [facility] Comment on above: Performed By: #### 2 117337, 8600221, 8842692, 2338791, 48197658, 5150066 ####[place] [address] MCHC (RBC) [Mass/Vol] 32.9 g/dL Normal 31.4-36.0 [facility] Comment on above: Performed By: #### 2 476465, 8873872, 1107113, 8682489, 49010786, 3653798 ####[address] [address] MCV (RBC) [Entitic vol] 86.0 fL Normal 80.0-100.0 [facility] Comment on above: Performed By: #### 2 627813, 9873374, 7446398, 7253266, 73445379, 0715595 ####[address] [address] Platelet mean volume (Bld) [Entitic vol] 8.8 fL Normal 6.4-10.8 [facility] Comment on above: Performed By: #### 2 247330, 2866867, 3303701, 4278431, 39502883, 7972471 ####[address] [address] Platelets (Bld) [#/Vol] 207.0 E9/L Normal 150.0-500.0 [facility] Comment on above: Performed By: #### 2 [id number], 7843322, 7314121, 2542988, 43292168, 8392820 ####[address] [address] RBC (Bld) [#/Vol] 4.0 E12/L Low 4.3-5.9 [facility] Comment on above: Performed By: #### 2 035909, 7722667, 2736486, 9945226, 65355983, 9066359 ####[facility] [address] [place] [address] WBC corrected for nucl RBC Auto (Bld) [#/Vol] 7.0 E9/L Normal 4.0-11.0 [facility] Comment on above: Performed By: #### 2 396484, 7884319, 2000889, 2928892, 31481904, 6330332 ####[facility] [address] [place] [address] CHEMISTRYOrdered By: SYSTEM SYSTEM on 01-24-2023 Anion [...] rate/Area] mL/min/1.73 m2 Normal >=59mL/min/1 .73 m2 [facility] Chem S Glucose [Mass/Vol] 163 mg/dL Normal 55 - 199 mg/dL [facility] Remisol Magnesium [Mass/Vol] 1.5 mg/dL Normal 1.3 - 2 .4 mg/dL [facility] Remisol Phosphate [Mass/Vol] 3.8 mg/dL Normal 1.9 - 4 .6 mg/dL [facility] Remisol Potassium [Moles/Vol] 3.9 mmol/L Normal 3.5 - 5.3 mmol/L [facility] Remisol Sodium [Moles/Vol] 140 mmol/L Normal 135 - 145 mmol/L [facility] Remisol Urea nitrogen [Mass/Vol] 24 mg/dL High 5 - 21 mg/dL [facility] Remisol Urea nitrogen/Creatinine [Mass ratio] 24 mg/mg High 10 - 20 [facility] Remisol Capillary Glucose POCon 01-04 Glucose [Mass/Vol] 148 mg/dL High 55-99 [facility] Comment on above: Result Comment: Clemente christopher RN/ Performed By: #### 2 [id number] ####[facility] [address] [place] [address] Glucose [Mass/Vol] 208 mg/dL High 55-99 [facility] Comment on above: Result Comment: Alida renetta Meter Performed By: #### 2 [id number] ####[facility] [address] [place] [address] Glucose [Mass/Vol] 201 mg/dL [facility] [address] [place] [address] Comment on above: Result Comment: Repe at Test Performed By: #### 2 [id number] ####[facility] [address] [place] [address] Glucose [Mass/Vol] 144 mg/dL High 55-99 [facility] Comment on above: Result Comment: Alida renetta Meter Performed By: #### 2 [id number] ####[facility] [address] [place] [address] HEMATOLOGYOrdered By: SYSTEM SYSTEM on 01-24-2023 Basophils/100 WBC (Bld) 0.9 % Normal 0.0 - 2.0 % [facility] HemeAutoSS Basophils/Leukocytes Auto (Bld) [Pure # fraction] 0.1 E9/L Normal 0.0 - 0.2 E9/L [facility] HemeAutoSS Eosinophils/100 WBC (Bld) 8.7 % High 0.0 - 8.0 % [facility] HemeAutoSS Eosinophils/Leukocytes Auto (Bld) [Pure # fraction] [...] 01-24-2023 Magnesium [Mass/Vol] 1.5 mg/dL Normal 1.3-2.4 [facility] Comment on above: Performed By: #### 2 902579, 3945080, 4250170, 7357502, 92211240, 9122026 ####[facility] [address] [place] [address] Monitor Recordon 01-24-2023 Monitor Record [id number]#1. 00CD:127 Normal [facility] Monitor Record [id number]#1. 00CD:127 Normal [facility] Monitor Record [id number]#1. 00CD:127 Normal [facility] Phosphoruson 01-24-2023 Phosphate [Mass/Vol] 3.8 mg/dL Normal 1.9-4.6 [facility] Comment on above: Performed By: #### 2 893976, 3617619, 6225991, 7018908, 77703427, 0316167 ####[facility] [address] [place] [address] Progress Note-Physicianon Progress Note-Physician [facility] Comment on above: Result Comment: Elec tronically Signed By: John Lyn MD\.br\Date and Time Signed: 01/24/23 14:33 EDT Progress Note-Physician Normal [facility] Comment on above: Result Comment: Elec tronically Signed By: Fallon Rudd RN\.br\Date and Time Signed: 01/24/23 08:05 EDT\.br\Electronically Co-Signed By: Lilia Castanon MD\.br\Date and Time Co-Signed: 01/24/23 10:23 EDT eGFRon 01-24-2023 GFR/1.73 sq M.predicted among blacks MDRD (S/P/Bld) [Vol rate/Area] mL/min/{1.73_m2} Normal >=59 [facility] Comment on above: Order Comment: Order added by Discern Expert. Result Comment: eGFR is race adjusted. AA=. Performed By: #### 2 604799, 6599725, 2362151, 1907068, 16812558, 1048132 ####[facility] [address] [place] [address] GFR/1.73 sq M.predicted among non-blacks MDRD (S/P/Bld) [Vol rate/Area] mL/min/{1.73_m2} Normal >=59 [facility] Comment on above: Order Comment: Order added by Discern Expert. Result Comment: Station Helper lokesh kidney disease could be indicated at eGFR's of less than 60 mL/min/1.73m2. Kidney failure is indicated at less than 15 mL/min/1.73m2. Performed By: #### 2 277418, 7216285, 3263174, 5466332, 85108532, 0104086 ####[facility] [address] [place] [address] Capillary Glucose POCon 01-04 Glucose [Mass/Vol] 174 mg/dL High 55-99 [facility] Comment on above: Result Comment: Clemente MCCLAIN Performed By: #### 2 [id number] ####[facility] [address] [place] [address] Glucose [Mass/Vol] 140 mg/dL High 55-99 [facility] Comment on above: Result Comment: Clemente MCCLAIN Performed By: #### 2 [id number] ####[facility] [address] [place] [address] Glucose [Mass/Vol] 206 mg/dL High 55-99 [facility] Comment on above: Result Comment: Clemente MCCLAIN Performed By: #### 2 40856113 ####[facility] [address] [place] [address] Glucose [Mass/Vol] 129 mg/dL High 55-99 [facility] Comment on above: Result Comment: Clemente MCCLAIN Performed By: #### 2 [id number] ####[facility] [address] [place] [address] Consultation Noteon 01-24-20 Consultation Note [facility] Comment on above: Result Comment: Elec tronically Signed By: Tobin GONZALEZ, Fallon\.br\Date and Time Signed: 01/23/23 09:08 EDT\.br\Electronically Co-Signed By: Lilia Castanon MD\.br\Date and Time Co-Signed: 01/23/23 10:18 EDT Interdisciplinary Note - Hermelindo e Manageron 01-23-2023 Interdisciplinary Note - Director Of Media [facility] Comment on above: Result Comment: Elec tronically Signed By: Luba GONZALEZ, Mily\.br\Date and Time Signed: 01/23/23 10:20 EDT Interdisciplinary Note - Hortensia n 01-23-2023 Interdisciplinary Note - OT OT six clicks score = HH services. Patient will require continued 24 hr supervision/assist at [facility], but, no further OT services needed at this time as pt is close to baseline status for adls. DC inpatient OT services. Normal [facility] Message from Medicareon 01-04 Message from Medicare [id number]#1. 00CD:127 [facility] Monitor Recordon 01-23-2023 Monitor Record [id number]#1. 00CD:127 [facility] Monitor Record [id number]#1. 00CD:127 Normal [facility] Progress Note-Physicianon Progress Note-Physician [facility] Comment on above: Result Comment: Elec tronically Signed By: Eboni LEMONS, John White\.br\Date and Time Signed: 01/23/23 16:00 EDT Auto Diffon 01-22-2023 Basophils/100 WBC (Bld) 1.8 % Normal 0.0-2.0 [facility] Comment on above: Order Comment: Order Added by Discern Expert. Performed By: #### 1 4307181, 10515567, 5927083, 18781129, 6349122, 5052132 ####[facility] [address] [place] [address] Basophils/Leukocytes Auto (Bld) [Pure # fraction] 0.1 E9/L Normal 0.0-0.2 [facility] Comment on above: Order Comment: Order Added by Discern Expert. Performed By: #### 1 7320579, 83967842, 2096517, 30235422, 2784018, 9552888 ####[address] [place] [address] Eosinophils/100 WBC (Bld) 8.7 % High 0.0-8.0 [facility] Comment on above: Order Comment: Order Added by Discern Expert. Performed By: #### 1 2471256, 32203440, 7196508, 50233087, 6765301, 3880990 ####[address] [address] Eosinophils/Leukocytes Auto (Bld) [Pure # fraction] 0.5 E9/L Normal 0.0-0.5 [facility] Comment on above: Order Comment: Order Added by Pearl Expert. Performed By: #### 1 4322179, 48175619, 0232765, 99389942, 0245942, 3448194 ####[address] [place] [address] Lymphocytes/100 WBC (Bld) 37.2 % Normal 14.0-50.0 [facility] Comment on above: Order Comment: Order Added by Discern Expert. Performed By: #### 1 1694339, 45109921, 9383888, 56844216, 1371593, 0296511 ####[address] [place] [address] Lymphocytes/Leukocytes Auto (Bld) [Pure # fraction] 2.3 E9/L Normal 1.0-4.0 [facility] Comment on above: Order Comment: Order Added by Pearl Expert. Performed By: #### 1 2888294, 18289407, 9970859, 06207988, 3087314, 1609715 ####[address] [place] [address] Monocytes/100 WBC (Bld) 7.2 % Normal 4.0-14.0 [facility] Comment on above: Order Comment: Order Added by Pearl Expert. Performed By: #### 1 9677095, 33880187, 1442021, 32373168, 3802415, 9134525 ####[address] [place] [address] Monocytes/Leukocytes Auto (Bld) [Pure # fraction] 0.4 E9/L Normal 0.2-1.0 [facility] Comment on above: Order Comment: Order Added by Pearl Expert. Performed By: #### 1 6763461, 36212141, 3377933, 91990785, 8606407, 0734486 ####[address] [address] Neutrophils/100 WBC (Bld) 45.1 % Normal 36.0-75.0 [facility] Comment on above: Order Comment: Order Added by Discern Expert. Performed By: #### 1 6961897, 08128627, 6892942, 77160335, 0066736, 0978078 ####[address] [address] Neutrophils/Leukocytes Auto (Bld) [Pure # fraction] 2.7 E9/L Normal 2.0-7.5 [facility] Comment on above: Order Comment: Order Added by Pearl Expert. Performed By: #### 1 8439986, 69647056, 2786837, 45691208, 2133397, 5651015 ####[facility] [address] [place] [address] BMPon 01-22-2023 Creatinine [Mass/Vol] 1.2 mg/dL Normal 0.5-1.3 [facility] Comment on above: Performed By: #### 1 2715210, 56014526, 1803250, 75170975, 4455650, 5745526 ####[address] [place] [address] Urea nitrogen [Mass/Vol] 25 mg/dL High 5-21 [facility] Comment on above: Performed By: #### 1 4720714, 76117826, 0257356, 53693575, 5697946, 8114434 ####[facility] [address] [place] [address] Urea nitrogen/Creatinine [Mass ratio] 21 No Units High 10-20 [facility] Comment on above: Performed By: #### 1 1194756, 28396589, 2789909, 71490508, 6005689, 3368144 ####[facility] [address] [place] [address] Anion gap [Moles/Vol] 13 mmol/L Normal 6-16 [facility] Comment on above: Performed By: #### 1 6700623, 83526725, 7615938, 84548876, 1425138, 8697844 ####[facility] [address] [facility] [address] Calcium [Mass/Vol] 8.6 mg/dL Low 8.9-11.1 [facility] Comment on above: Performed By: #### 1 7320961, 96322900, 3634954, 37696071, 3802928, 4754367 ####[facility] [address] [place] [address] Chloride [Moles/Vol] 105 mmol/L Normal 101-111 [facility] Comment on above: Performed By: #### 1 9257243, 03921729, 0825372, 52826862, 2688968, 1136940 ####[facility] [address] [place] [address] CO2 [Moles/Vol] 24 mmol/L Normal 21-31 [facility] Comment on above: Performed By: #### 1 5625056, 46701972, 3091515, 20949180, 1786073, 5217076 ####[facility] [address] [place] [address] Glucose [Mass/Vol] 227 mg/dL High 55-199 [facility] Comment on above: Result Comment: If t his glucose result represents a fasting glucose, interpretation should refer to the following reference range: 55-99 mg/dL Performed By: #### 1 7022719, 31611157, 2800390, 14732278, 5640962, 8130518 ####[facility] [address] [place] [address] Potassium [Moles/Vol] 4.0 mmol/L Normal 3.5-5.3 [facility] Comment on above: Performed By: #### 1 1298570, 74276100, 3352939, 70179210, 3718274, 6481166 ####[facility] [address] [place] [address] Sodium [Moles/Vol] 138 mmol/L Normal 135-145 [facility] Comment on above: Performed By: #### 1 6951962, 49419706, 5965648, 29929908, 7692518, 0579302 ####[facility] [address] [place] [address] CBC w/ Auto Diffon Erythrocyte distribution width (RBC) [Ratio] 14.8 % High 10.9-14.2 [facility] Comment on above: Performed By: #### 1 4765944, 74032416, 5286500, 55292278, 5670440, 4063337 ####[facility] [address] [place] [address] Hematocrit (Bld) [Volume fraction] 33.8 % Low 37.7-49.0 [facility] Comment on above: Performed By: #### 1 9645620, 96395974, 8980859, 33351279, 4490827, 5748186 ####[facility] [address] [place] [address] Hemoglobin (Bld) [Mass/Vol] 10.9 g/dL Low 13.5-17.5 [facility] Comment on above: Performed By: #### 1 4679729, 04382371, 8666422, 81051708, 7426998, 9387966 ####[facility] [address] [place] [address] MCH (RBC) [Entitic mass] 28.2 pg Normal 27.0-34.0 [facility] Comment on above: Performed By: #### 1 5149450, 71146298, 3056360, 01215902, 1204974, 9794716 ####[address] [place] [address] MCHC (RBC) [Mass/Vol] 32.4 g/dL Normal 31.4-36.0 [facility] Comment on above: Performed By: #### 1 0874928, 86760794, 2692832, 71616370, 4454248, 6097293 ####[address] [address] MCV (RBC) [Entitic vol] 87.1 fL Normal 80.0-100.0 [facility] Comment on above: Performed By: #### 1 9382128, 57929275, 1562840, 18185333, 2604903, 6920265 ####[address] [place] [address] Platelet mean volume (Bld) [Entitic vol] 9.4 fL Normal 6.4-10.8 [facility] Comment on above: Performed By: #### 1 0306999, 27095885, 9872627, 43984240, 8445407, 1897476 ####[address] [place] [address] Platelets (Bld) [#/Vol] 215.0 E9/L Normal 150.0-500.0 [facility] Comment on above: Performed By: #### 1 7819288, 14138853, 1439844, 68345335, 7493513, 2044203 ####[address] [place] [address] RBC (Bld) [#/Vol] 3.9 E12/L Low 4.3-5.9 [facility] Comment on above: Performed By: #### 1 1767171, 33911548, 8081186, 14756522, 9656291, 7885171 ####[facility] [address] [place] [address] WBC corrected for nucl RBC Auto (Bld) [#/Vol] 6.1 E9/L Normal 4.0-11.0 [facility] Comment on above: Performed By: #### 1 6035559, 51895687, 1644628, 43801545, 8029149, 9151846 ####[facility] [address] [place] [address] CHEMISTRYOrdered By: SYSTEM SYSTEM on 01-22-2023 25-hydroxyvitamin [...] 60 mL/min/1.73 m2 Normal >=59mL/min/1 .73 m2 [facility] Chem S Glucose [Mass/Vol] 227 mg/dL High 55 - 199 mg/dL [facility] Remisol Potassium [Moles/Vol] 4.0 mmol/L Normal 3.5 - 5.3 mmol/L [facility] Remisol Sodium [Moles/Vol] 138 mmol/L Normal 135 - 145 mmol/L [facility] Remisol Urea nitrogen [Mass/Vol] 25 mg/dL High 5 - 21 mg/dL [facility] Remisol Urea nitrogen/Creatinine [Mass ratio] 21 mg/mg High 10 - 20 [facility] Remisol COAGULATIONOrdered By: Nusrat Aquino on 01-22-2023 aPTT Coag (PPP) [Time] 31.4 s Normal 25.1 - 36.5 second(s) [facility] Auto Coag INR Coag (PPP) [Relative time] 1.1 {INR} Invalid Interpretation Code [facility] Auto Coag PT Coag (PPP) [Time] 11.8 s Normal 9.4 - 1 2.5 second(s) [facility] Auto Coag Capillary Glucose POCon 01-04 Glucose [Mass/Vol] 221 mg/dL High 55-99 [facility] Comment on above: Result Comment: Clemente MCCLAIN Performed By: #### 2 07769168 ####[facility] [address] [place] [address] Glucose [Mass/Vol] 127 mg/dL High 55-99 [facility] Comment on above: Result Comment: Clemente MCCLAIN Performed By: #### 2 38133285 ####[facility] [address] [place] [address] Glucose [Mass/Vol] 131 mg/dL High 55-99 [facility] Comment on above: Result Comment: Clemente MCCLAIN Performed By: #### 2 87707296 ####[facility] [address] [place] [address] Consent for Treatmenton 01-04 Consent for Treatment [id number] 0CD:127 Normal [facility] ED Clinical Summaryon 2022 ED Clinical Summary Normal [facility] ED Note-Physicianon 01-23-20 ED Note-Physician Normal [facility] Comment on above: Result Comment: Elec tronically Signed By: Vivek Wilder DO\.br\Date and Time Signed: 01/22/23 03:16 EDT ED Patient Education Noteon 01-22-2023 ED Patient Education Note Normal [facility] ED Patient Summaryon 023 ED Patient Summary Normal [facility] EEGon 01-22-2023 EEG Normal [facility] Comment on above: Result Comment: Elec tronically Signed By: Lliia Castaonn MD\.br\Date and Time Signed: 01/22/23 10:31 EDT EMS Documentationon 01-23-20 EMS Documentation Normal [facility] HEMATOLOGYOrdered By: SYSTEM SYSTEM on 01-22-2023 [...] Hermelindo e Manageron 01-22-2023 Interdisciplinary Note - Director Of Media Normal [facility] Comment on above: Result Comment: Elec tronically Signed By: Luba GONZALEZ, Mily\.francie\Date and Time Signed: 01/22/23 12:45 EDT Interdisciplinary Note - Hortensia n 01-22-2023 Interdisciplinary Note - OT OT order received and chart review completed. Per RN, hold OT eval this date as pt is very lethargic. Normal [facility] Monitor Recordon 01-22-2023 Monitor Record [id number]#1. 00CD:127 Normal [facility] Monitor Record [id number]#1. 00CD:127 Normal [facility] Fci Recordson 01-22 [facility] Records [id number]#1. 00CD:127 Normal [facility] PT & PTTon 01-22-2023 aPTT Coag (PPP) [Time] 31.4 second(s) Normal 25.1-36.5 [facility] Comment on above: Result Comment: Para [...] the same coagulation reagent and instrumentation as [facility]. Currently there are no coagulation studies available worldwide for children to 14 days, and no normal ranges. Heparin therapeutic range (represented by Anti-Factor Xa activity of 0.2 - 0.4 U/mL) corresponds to PTT of 56.6 - 109.0 sec. Performed By: #### 1 4163764, 82154956, 8326438, 10039681, 3218484, 5867552 ####[facility] [address] [place] [address] INR Coag (PPP) [Relative time] 1.1 {INR} Invalid Interpretation Code [facility] Comment on above: Result Comment: INR results are specifically intended to assess patients stabilized on long-term Anticoagulation therapy suggested INR?s ?Less Intensive Anticoagulation? 2.0 ? 3.0Conventional Range 3.0 ? 4.5 Performed By: #### 1 4549776, 91655384, 2572136, 01996385, 4624456, 2009581 ####[facility] [address] [place] [address] PT Coag (PPP) [Time] 11.8 second(s) Normal 9.4-12.5 [facility] Comment on above: Result Comment: 15 [...] the same coagulation reagent and instrumentation as [facility]. Currently there are no coagulation studies available worldwide for children to 14 days, and no normal ranges. Performed By: #### 1 9053525, 92446160, 4491891, 15496102, 9801798, 7186005 ####[facility] [address] [place] [address] Pre-Arrival Noteon 3 Pre-Arrival Note Normal [facility] Pre-Arrival Note Normal [facility] Troponin 0 Hr.on 01-22-2023 Troponin I.cardiac [Mass/Vol] 6.90 pg/mL Low 15.90-38.40 [facility] Comment on above: Result Comment: The 95% CI (Confidence Interval) PPV (Positive Predictive Value) for myocardial infarction in females is 38 pg/mL, in males 51 pg/mL. The results should be used in conjunction with clinical conditions of myocardial infarction.(Access High Sensitivity Troponin I Instructions For Use, Trinh Matilda, May 2018) Performed By: #### 1 4766286, 11217787, 2214027, 56150791, 5237332, 8968230 ####[facility] [address] [place] [address] Troponin 3 Hr.on 01-22-2023 Troponin I.cardiac [Mass/Vol] 7.60 pg/mL Low 15.90-38.40 [facility] Comment on above: Result Comment: The 95% CI (Confidence Interval) PPV (Positive Predictive Value) for myocardial infarction in females is 38 pg/mL, in males 51 pg/mL. The results should be used in conjunction with clinical conditions of myocardial infarction.(Access High Sensitivity Troponin I Instructions For Use, Buck Mason, May 2018) Performed By: #### 1 [id number] ####[facility] [address] [place] [address] Troponin 6 Hr.on 01-22-2023 Troponin I.cardiac [Mass/Vol] 7.20 pg/mL Low 15.90-38.40 [facility] Comment on above: Result Comment: The 95% CI (Confidence Interval) PPV (Positive Predictive Value) for myocardial infarction in females is 38 pg/mL, in males 51 pg/mL. The results should be used in conjunction with clinical conditions of myocardial infarction.(Access High Sensitivity Troponin I Instructions For Use, Buck Mason, May 2018) Performed By: #### 1 [id number] ####[facility] [address] [place] [address] Troponin 9 Hr.on 01-22-2023 Troponin I.cardiac [Mass/Vol] 5.70 pg/mL Low 15.90-38.40 [facility] Comment on above: Result Comment: The 95% CI (Confidence Interval) PPV (Positive Predictive Value) for myocardial infarction in females is 38 pg/mL, in males 51 pg/mL. The results should be used in conjunction with clinical conditions of myocardial infarction.(Access High Sensitivity Troponin I Instructions For Use, Buck Mason, May 2018) Performed By: #### 1 [id number] ####[facility] [address] [place] [address] Vitamin D 25 Hydroxyon 01-22 25-hydroxyvitamin D3 [Mass/Vol] 22.0 ng/mL Low 30.0-100.0 [facility] Comment on above: Result Comment: Vit castellano D deficiency has been defined as a level of serum 25-OH vitamin D less than 20 ng/mL (1,2) by the [employer] of Medicine and an Endocrine Society practice guideline. The Endocrine Society further defined vitamin D insufficiency as a level between 21 and 29 ng/mL (2). 1. IOM ([employer] of Medicine). 2010. Dietary reference intakes for calcium and D. [place]: The National Academies Press. 2. Mary MF, Mg MCKEON, Tari THOMAS, et al. Evaluation, treatment, and prevention of vitamin D deficiency: an Endocrine Society clinical practice guideline. JCEM. 2010; 96 (7):1911-30. Performed By: #### 5 [id number] ####[facility] [address] [place] [address] XR Chest Single Viewon 01-22 XR Chest Single View Normal [facility] eGFRon 01-22-2023 GFR/1.73 sq M.predicted among blacks MDRD (S/P/Bld) [Vol rate/Area] mL/min/{1.73_m2} Normal >=59 [facility] Comment on above: Order Comment: Order added by Discern Expert. Result Comment: eGFR is race adjusted. AA=. Performed By: #### 1 4081378, 53093987, 2955821, 23140130, 4651239, 7899678 ####[facility] [address] [place] [address] GFR/1.73 sq M.predicted among non-blacks MDRD (S/P/Bld) [Vol rate/Area] 60 mL/min/1.73 m2 Normal >=59 [facility] Comment on above: Order Comment: Order added by Discern Expert. Result Comment: Station Helper lokesh kidney disease could be indicated at eGFR's of less than 60 mL/min/1.73m2. Kidney failure is indicated at less than 15 mL/min/1.73m2. Performed By: #### 1 4131666, 50216048, 1930543, 00486480, 6300656, 2983682 ####[facility] [address] [place] [address] Coding Summary.on 01-21-2023 Coding Summary. Normal [facility] Consent for Procedure/Surger yon 01-21-2023 Consent for Procedure/Surgery [id number]#1. 00CD:127 Normal [facility] Discharge Instructionson Discharge Instructions [id number]#1. 00CD:127 Normal [facility] Transfer Documentson 023 Transfer Documents [id number]#1. 00CD:127 Normal [facility] Capillary Glucose POCon 01-03 Glucose [Mass/Vol] 172 mg/dL High 55-99 [facility] Comment on above: Result Comment: Clemente christopher RN/ Performed By: #### 2 [id number] ####[facility] [address] [place] [address] Glucose [Mass/Vol] 119 mg/dL High 55-99 [facility] Comment on above: Result Comment: Clemente MCCLAIN Performed By: #### 2 73291686 ####[facility] [address] [place] [address] Discharge Note-Nursingon Discharge Note-Nursing [facility] Inpatient Clinical Summaryon 01-20-2023 Inpatient Clinical Summary Normal [facility] Inpatient Patient Summaryon 01-20-2023 Inpatient Patient Summary [facility] Interdisciplinary Note - Hermelindo e Manageron 01-20-2023 Interdisciplinary Note - Director Of Media [facility] Comment on above: Result Comment: Elec tronically Signed By: Brianna Adams.francie\Date and Time Signed: 01/20/23 14:39 EDT Message from Medicareon 01-03 Message from Medicare [id number]#1. 00CD:127 Normal [facility] Monitor Recordon 01-20-2023 Monitor Record [id number]#1. 00CD:127 Normal [facility] Monitor Record [id number]#1. 00CD:127 Normal [facility] Monitor Record [id number]#1. 00CD:127 Normal [facility] Stress EKG Tracingson 2022 Stress EKG Tracings [id number]#1. 00CD:127 Normal [facility] Auto Diffon 01-19-2023 Basophils/100 WBC (Bld) 0.7 % Normal 0.0-2.0 [facility] Comment on above: Order Comment: Order Added by Discern Expert. Performed By: #### 2 249193, 1441416, 97320853, 2707469, 5533862 ####[facility] [address] [place] [address] Basophils/Leukocytes Auto (Bld) [Pure # fraction] 0.0 E9/L Normal 0.0-0.2 [facility] Comment on above: Order Comment: Order Added by Discern Expert. Performed By: #### 2 237868, 9244246, 91923679, 4207693, 8293118 ####[facility] [address] [place] [address] Eosinophils/100 WBC (Bld) 10.3 % High 0.0-8.0 [facility] Comment on above: Order Comment: Order Added by Discern Expert. Performed By: #### 2 751343, 9381476, 19809855, 3890390, 9116068 ####[facility] [address] [place] [address] Eosinophils/Leukocytes Auto (Bld) [Pure # fraction] 0.7 E9/L High 0.0-0.5 [facility] Comment on above: Order Comment: Order Added by Discern Expert. Performed By: #### 2 736233, 7377113, 44690219, 1177010, 7235172 ####[facility] [address] [place] [address] Lymphocytes/100 WBC (Bld) 38.3 % Normal 14.0-50.0 [facility] Comment on above: Order Comment: Order Added by Discern Expert. Performed By: #### 2 332277, 5961400, 14930836, 0572628, 5572057 ####[address] [place] [address] Lymphocytes/Leukocytes Auto (Bld) [Pure # fraction] 2.5 E9/L Normal 1.0-4.0 [facility] Comment on above: Order Comment: Order Added by Pearl Expert. Performed By: #### 2 223202, 9864082, 58387064, 5292684, 0972484 ####[address] [place] [address] Monocytes/100 WBC (Bld) 6.6 % Normal 4.0-14.0 [facility] Comment on above: Order Comment: Order Added by Pearl Expert. Performed By: #### 2 925339, 1943259, 75126742, 0882337, 2456980 ####[address] [place] [address] Monocytes/Leukocytes Auto (Bld) [Pure # fraction] 0.4 E9/L Normal 0.2-1.0 [facility] Comment on above: Order Comment: Order Added by Pearl Expert. Performed By: #### 2 037232, 8245881, 47797588, 4231921, 3345441 ####[address] [place] [address] Neutrophils/100 WBC (Bld) 44.1 % Normal 36.0-75.0 [facility] Comment on above: Order Comment: Order Added by Pearl Expert. Performed By: #### 2 722058, 1972456, 74270901, 0902903, 2790092 ####[address] [place] [address] Neutrophils/Leukocytes Auto (Bld) [Pure # fraction] 2.8 E9/L Normal 2.0-7.5 [facility] Comment on above: Order Comment: Order Added by Pearl Expert. Performed By: #### 2 922395, 5353395, 10635871, 3930283, 6171231 ####[facility] [address] [place] [address] BMPon 01-19-2023 Anion gap [Moles/Vol] 10 mmol/L Normal 6-16 [facility] Comment on above: Performed By: #### 2 523781, 8170535, 27480623, 7393324, 8428302 ####[facility] [address] [place] [address] Calcium [Mass/Vol] 8.6 mg/dL Low 8.9-11.1 [facility] Comment on above: Performed By: #### 2 100020, 8283076, 27571063, 8108720, 3988238 ####[facility] [address] [place] [address] Chloride [Moles/Vol] 108 mmol/L Normal 101-111 [facility] Comment on above: Performed By: #### 2 804250, 6778299, 69431806, 3756296, 0397483 ####[facility] [address] [place] [address] CO2 [Moles/Vol] 27 mmol/L Normal 21-31 [facility] Comment on above: Performed By: #### 2 707285, 3610697, 42437730, 3862494, 6841607 ####[facility] [address] [place] [address] Creatinine [Mass/Vol] 0.8 mg/dL Normal 0.5-1.3 [facility] Comment on above: Performed By: #### 2 770819, 3752504, 30764059, 4918259, 7514764 ####[facility] [address] [place] [address] Glucose [Mass/Vol] 118 mg/dL Normal 55-199 [facility] Comment on above: Result Comment: If t his glucose result represents a fasting glucose, interpretation should refer to the following reference range: 55-99 mg/dL Performed By: #### 2 113516, 9882086, 51670451, 2594995, 0914739 ####[facility] [address] [place] [address] Potassium [Moles/Vol] 3.7 mmol/L Normal 3.5-5.3 [facility] Comment on above: Performed By: #### 2 715339, 7568090, 43171021, 0573240, 6733761 ####[facility] [address] [place] [address] Sodium [Moles/Vol] 141 mmol/L Normal 135-145 [facility] Comment on above: Performed By: #### 2 979006, 6464942, 90818838, 6911883, 8151255 ####[facility] [address] [place] [address] Urea nitrogen [Mass/Vol] 25 mg/dL High 5-21 [facility] Comment on above: Performed By: #### 2 997961, 7386727, 77387666, 8641684, 0193854 ####[facility] [address] [place] [address] Urea nitrogen/Creatinine [Mass ratio] 31 No Units High 10-20 [facility] Comment on above: Performed By: #### 2 021720, 1646662, 88284716, 6561856, 7051610 ####[facility] [address] [place] [address] CBC w/ Auto Diffon Erythrocyte distribution width (RBC) [Ratio] 14.8 % High 10.9-14.2 [facility] Comment on above: Performed By: #### 2 097869, 1017809, 44671911, 5024555, 5299609 ####[facility] [address] [place] [address] Hematocrit (Bld) [Volume fraction] 33.7 % Low 37.7-49.0 [facility] Comment on above: Performed By: #### 2 859620, 5372091, 49359431, 3056380, 3585608 ####[facility] [address] [place] [address] Hemoglobin (Bld) [Mass/Vol] 11.0 g/dL Low 13.5-17.5 [facility] Comment on above: Performed By: #### 2 191315, 2739426, 63623672, 7017878, 1044232 ####[facility] [address] [place] [address] MCH (RBC) [Entitic mass] 28.7 pg Normal 27.0-34.0 [facility] Comment on above: Performed By: #### 2 171494, 1597507, 32427249, 0862513, 7575979 ####[address] [place] [address] MCHC (RBC) [Mass/Vol] 32.7 g/dL Normal 31.4-36.0 [facility] Comment on above: Performed By: #### 2 952788, 4380879, 51828086, 8161071, 9670137 ####[address] [address] MCV (RBC) [Entitic vol] 87.7 fL Normal 80.0-100.0 [facility] Comment on above: Performed By: #### 2 274048, 6389978, 59710377, 6058708, 6488389 ####[address] [address] Platelet mean volume (Bld) [Entitic vol] 8.5 fL Normal 6.4-10.8 [facility] Comment on above: Performed By: #### 2 073636, 8983415, 03966488, 2367266, 8356814 ####[address] [place] [address] Platelets (Bld) [#/Vol] 208.0 E9/L Normal 150.0-500.0 [facility] Comment on above: Performed By: #### 2 863493, 4365625, 37893092, 2131621, 0294228 ####[address] [address] RBC (Bld) [#/Vol] 3.8 E12/L Low 4.3-5.9 [facility] Comment on above: Performed By: #### 2 681168, 7452529, 88346813, 9875913, 6164125 ####[facility] [address] [place] [address] WBC corrected for nucl RBC Auto (Bld) [#/Vol] 6.5 E9/L Normal 4.0-11.0 [facility] Comment on above: Performed By: #### 2 569729, 3624107, 82816764, 7067573, 1507203 ####[facility] [address] [place] [address] Capillary Glucose POCon 01-03 Glucose [Mass/Vol] 158 mg/dL High 55-99 [facility] Comment on above: Result Comment: Clemente MCCLAIN Performed By: #### 2 07546267 ####[facility] [address] [place] [address] Glucose [Mass/Vol] 149 mg/dL High 55-99 [facility] Comment on above: Result Comment: Clemente MCCLAIN Performed By: #### 2 89718602 ####[facility] [address] [place] [address] Glucose [Mass/Vol] 111 mg/dL High 55-99 [facility] Comment on above: Result Comment: Clemente MCCLAIN Performed By: #### 2 38334903 ####[facility] [address] [place] [address] Glucose [Mass/Vol] 104 mg/dL High 55-99 [facility] Comment on above: Result Comment: Clemente MCCLAIN Performed By: #### 2 92584923 ####[facility] [address] [place] [address] Interdisciplinary Note - Hermelindo e Manageron 01-19-2023 Interdisciplinary Note - Director Of Media Normal [facility] Comment on above: Result Comment: Elec tronically Signed By: Brianna Adams\.br\Date and Time Signed: 01/19/23 15:20 EDT Magnesiumon 01-19-2023 Magnesium [Mass/Vol] 1.6 mg/dL Normal 1.3-2.4 [facility] Comment on above: Performed By: #### 2 347867, 2510732, 32958279, 6551227, 8272164 ####[facility] [address] [place] [address] Monitor Recordon 01-19-2023 Monitor Record [id number]#1. 00CD:127 Normal [facility] Monitor Record [id number]#1. 00CD:127 Normal [facility] Monitor Record [id number]#1. 00CD:127 Normal [facility] Monitor Record [id number]#1. 00CD:127 Normal [facility] Progress Note-Physicianon Progress Note-Physician Normal [facility] Comment on above: Result Comment: Elec tronically Signed By: Claudio Moseley MD\.br\Date and Time Signed: 01/19/23 15:51 EDT Progress Note-Physician Normal [facility] Comment on above: Result Comment: Elec tronically Signed By: Saira GONZALEZ, Rajni Arteaga\.br\Date and Time Signed: 01/19/23 07:30 EDT\.br\Electronically Co-Signed By: Kumar Mathias DO\.br\Date and Time Co-Signed: 01/19/23 09:33 EDT Progress Note-Physician Normal [facility] Comment on above: Result Comment: Elec tronically Signed By: Dax LEMONS, Mahesh Johns\.br\Date and Time Signed: 01/19/23 07:50 EDT US CAROTID ART BILon 023 US CAROTID ART MATTHIAS Normal [facility] eGFRon 01-19-2023 GFR/1.73 sq M.predicted among blacks MDRD (S/P/Bld) [Vol rate/Area] mL/min/{1.73_m2} Normal >=59 [facility] Comment on above: Order Comment: Order added by Discern Expert. Result Comment: eGFR is race adjusted. AA=. Performed By: #### 2 826840, 8354645, 80066795, 2887690, 1434074 ####[facility] [address] [place] [address] GFR/1.73 sq M.predicted among non-blacks MDRD (S/P/Bld) [Vol rate/Area] mL/min/{1.73_m2} Normal >=59 [facility] Comment on above: Order Comment: Order added by Discern Expert. Result Comment: Station Helper lokesh kidney disease could be indicated at eGFR's of less than 60 mL/min/1.73m2. Kidney failure is indicated at less than 15 mL/min/1.73m2. Performed By: #### 2 757186, 7088869, 15992903, 6133321, 7770608 ####[facility] [address] [place] [address] Blood Gas Art, with Lytes, G kj, [place] 01-18-2023 FIO2 BG 21 Invalid Interpretation Code [facility] Comment on above: Performed By: #### 4 [id number] ####[facility] [address] [place] [address] Capillary Glucose POCon 01-03 Glucose [Mass/Vol] 202 mg/dL High 55-99 [facility] Comment on above: Result Comment: Clemente MCCLAIN Performed By: #### 2 16343058 ####[facility] [address] [place] [address] Glucose [Mass/Vol] 171 mg/dL High 55-99 [facility] Comment on above: Result Comment: Clemente MCCLAIN Performed By: #### 2 85748004 ####[facility] [address] [place] [address] Glucose [Mass/Vol] 108 mg/dL High 55-99 [facility] Comment on above: Result Comment: Alida jackson Meter Performed By: #### 2 41455201 ####[facility] [address] [place] [address] Glucose [Mass/Vol] 85 mg/dL Normal 55-99 [facility] Comment on above: Result Comment: Clemente christopher RN/ Performed By: #### 2 48580961 ####[facility] [address] [place] [address] Consultation Noteon 01-19-20 Consultation Note Normal [facility] Comment on above: Result Comment: Elec tronically Signed By: Saira GONZALEZ, Rajni Arteaga\.br\Date and Time Signed: 01/18/23 07:10 EDT\.br\Electronically Co-Signed By: Lilia Castanon MD\.br\Date and Time Co-Signed: 01/18/23 09:00 EDT Consultation Note Normal [facility] Comment on above: Result Comment: Elec tronically Signed By: Mahesh Lema MD\.br\Date and Time Signed: 01/18/23 08:43 EDT Interdisciplinary Note - Hermelindo e Manageron 01-18-2023 Interdisciplinary Note - Director Of Media Normal [facility] Comment on above: Result Comment: Elec tronically Signed By: Meredith Reilly RN\.br\Date and Time Signed: 01/18/23 14:57 EDT Interdisciplinary Note - Hortensia n 01-18-2023 Interdisciplinary Note - OT Normal [facility] Interdisciplinary Note - PTo n 01-18-2023 Interdisciplinary Note - PT Normal [facility] Lipid Panelon 01-18-2023 Cholesterol [Mass/Vol] 131 mg/dL Normal 120-200 [facility] Comment on above: Performed By: #### 2 878607 ####[facility] [address] [place] [address] Cholesterol in HDL [Mass/Vol] 37 mg/dL Invalid Interpretation Code [facility] Comment on above: Result Comment: HDL > or equal to 60 mg/dL: Low cardiovascular riskHDL < 40 mg/dL : High cardiovascular risk Performed By: #### 2 371266 ####[facility] [address] [place] [address] Cholesterol in LDL [Mass/Vol] 77 mg/dL Normal <=129 [facility] Comment on above: Performed By: #### 2 735400 ####[facility] [address] [place] [address] Cholesterol in VLDL [Mass/Vol] 13 mg/dL Normal 7-40 [facility] Comment on above: Performed By: #### 2 026543 ####[facility] [address] [place] [address] Triglyceride [Mass/Vol] 65 mg/dL Normal <=149 [facility] Comment on above: Performed By: #### 2 147478 ####[facility] [address] [place] [address] Monitor Recordon 01-18-2023 Monitor Record [id number]#1. 00CD:127 Normal [facility] Monitor Record [id number]#1. 00CD:127 Normal [facility] Monitor Record [id number]#1. 00CD:127 Normal [facility] Monitor Record [id number]#1. 00CD:127 Normal [facility] Progress Note-Physicianon Progress Note-Physician Normal [facility] Comment on above: Result Comment: Elec tronically Signed By: DONYA LEMONS, Ayaan Wells\.br\Date and Time Signed: 01/18/23 08:30 EDT Troponin 9 Hr.on 01-18-2023 Troponin I.cardiac [Mass/Vol] 7.20 pg/mL Low 15.90-38.40 [facility] Comment on above: Result Comment: The 95% CI (Confidence Interval) PPV (Positive Predictive Value) for myocardial infarction in females is 38 pg/mL, in males 51 pg/mL. The results should be used in conjunction with clinical conditions of myocardial infarction.(Access High Sensitivity Troponin I Instructions For Use, Trinh Matilda, May 2018) Performed By: #### 1 3372929 ####[facility] [address] [place] [address] UA With Cult Reflexon 2022 Bilirubin Ql (U) Negative Normal Negative [facility] Comment on above: Performed By: #### 1 8244876 ####[facility] [address] [place] [address], [place] [address] Clarity (U) CLEAR Normal Clear [facility] Comment on above: Performed By: #### 1 0165012 ####[address] [place] [place] [address] Color (U) YELLOW Normal Yellow [facility] Comment on above: Performed By: #### 1 9191722 ####[address] [address] Epithelial cells.squamous LM.HPF (Urine sed) [#/Area] 0-2 Normal 0-2 [facility] Comment on above: Performed By: #### 1 7199481 ####[facility] [address] [place] [address] Glucose Test strip (U) [Mass/Vol] Negative Normal Negative [facility] Comment on above: Performed By: #### 1 5551484 ####[address] [address] Hemoglobin Ql (U) Negative Normal Negative [facility] Comment on above: Performed By: #### 1 9896748 ####[facility] [address] [place] [address] Ketones (U) [Mass/Vol] Negative Normal Negative [facility] Comment on above: Performed By: #### 1 8440532 ####[address] [address] [place].plasma/[place] .RBC (Bld) [Mass ratio] 0-3 Normal 0-3 [facility] Comment on above: Performed By: #### 1 3726742 ####[address] [address] Nitrite Ql (U) Negative Normal Negative [facility] Comment on above: Performed By: #### 1 9311762 ####[facility] [address] [place] [address] pH (U) 6.0 [pH] Invalid Interpretation Code 5.0-9.0 [facility] Comment on above: Performed By: #### 1 0791644 ####[address] [address] Protein (U) [Mass/Vol] Negative Normal Negative [facility] Comment on above: Performed By: #### 1 1470701 ####[address] [address] Specific gravity (U) [Rel density] 1.015 Invalid Interpretation Code 1.005-1.030 [facility] Comment on above: Performed By: #### 1 3239537 ####[address] [address] Type of Urine collection method Clean Catch Normal [facility] Comment on above: Performed By: #### 1 9417212 ####[address] [address] Urobilinogen Qn (U) 0.2 {Alyssia'U}/dL Normal 0.0-1.0 [facility] Comment on above: Performed By: #### 1 3371631 ####[address] [address] WBC Auto Ql (U) Negative Normal Negative [facility] Comment on above: Performed By: #### 1 4887731 ####[address] [address] WBC LM.HPF (Urine sed) [#/Area] 0-5 Normal 0-5 [facility] Comment on above: Performed By: #### 1 1498318 ####[address] [address] Auto Diffon 01-17-2023 Basophils/100 WBC (Bld) 0.7 % Normal 0.0-2.0 [facility] Comment on above: Order Comment: Order Added by Discern Expert. Performed By: #### 2 737729, 6989297, 31271287, 9064158, 05227756, 52521025 ####[address] [address] Basophils/Leukocytes Auto (Bld) [Pure # fraction] 0.0 E9/L Normal 0.0-0.2 [facility] Comment on above: Order Comment: Order Added by Discern Expert. Performed By: #### 2 052792, 3469444, 49229460, 4703348, 82258676, 93960162 ####[address] [address] Eosinophils/100 WBC (Bld) 10.6 % High 0.0-8.0 [facility] Comment on above: Order Comment: Order Added by Discern Expert. Performed By: #### 2 938483, 9106207, 05044802, 6196440, 91038885, 68135971 ####[address] [address] Eosinophils/Leukocytes Auto (Bld) [Pure # fraction] 0.7 E9/L High 0.0-0.5 [facility] Comment on above: Order Comment: Order Added by Discern Expert. Performed By: #### 2 547680, 3899529, 18309324, 6985463, 07082669, 22106651 ####[address] [address] Lymphocytes/100 WBC (Bld) 25.5 % Normal 14.0-50.0 [facility] Comment on above: Order Comment: Order Added by Discern Expert. Performed By: #### 2 817732, 0345539, 66057025, 8641878, 55860578, 95776475 ####[address] [address] Lymphocytes/Leukocytes Auto (Bld) [Pure # fraction] 1.6 E9/L Normal 1.0-4.0 [facility] Comment on above: Order Comment: Order Added by Discern Expert. Performed By: #### 2 106584, 2267659, 24270411, 9988316, 60686058, 11517410 ####[facility] [address] [place] [address] Monocytes/100 WBC (Bld) 6.7 % Normal 4.0-14.0 [facility] Comment on above: Order Comment: Order Added by Discern Expert. Performed By: #### 2 510953, 7149162, 58908765, 7184133, 81739870, 45355336 ####[address] [place] [address] Monocytes/Leukocytes Auto (Bld) [Pure # fraction] 0.4 E9/L Normal 0.2-1.0 [facility] Comment on above: Order Comment: Order Added by Pearl Expert. Performed By: #### 2 105438, 2756139, 91988036, 7792837, 83945656, 58692097 ####[address] [address] Neutrophils/100 WBC (Bld) 56.5 % Normal 36.0-75.0 [facility] Comment on above: Order Comment: Order Added by Discern Expert. Performed By: #### 2 369643, 9414168, 10130332, 0998761, 87898805, 47900459 ####[address] [address] [address] Neutrophils/Leukocytes Auto (Bld) [Pure # fraction] 3.5 E9/L Normal 2.0-7.5 [facility] Comment on above: Order Comment: Order Added by Discern Expert. Performed By: #### 2 088831, 1137283, 04131337, 0309163, 11873715, 81498532 ####[address] [place] [address] BB Draw & Holdon 01-17-2023 BB D&H Sample drawn for Blo od Ba Normal [facility] Comment on above: Performed By: #### 1 [id number] ####[facility] [address] [place] [address] BMPon 01-17-2023 Creatinine [Mass/Vol] 1.3 mg/dL Normal 0.5-1.3 [facility] Comment on above: Performed By: #### 2 678975, 9962697, 72334435, 0765522, 78148129, 53498901 ####[facility] [address] [place] [address] Urea nitrogen [Mass/Vol] 35 mg/dL High 5-21 [facility] Comment on above: Performed By: #### 2 578921, 4914453, 29455839, 1961227, 52521855, 68005102 ####[facility] [address] [place] [address] Urea nitrogen/Creatinine [Mass ratio] 27 No Units High 10-20 [facility] Comment on above: Performed By: #### 2 134075, 8459483, 91148995, 5353680, 08194632, 86706888 ####[facility] [address] [place] [address] Anion gap [Moles/Vol] 14 mmol/L Normal 6-16 [facility] Comment on above: Performed By: #### 2 003135, 0549426, 37880910, 9565381, 64677475, 68047673 ####[facility] [address] [place] [address] Calcium [Mass/Vol] 8.7 mg/dL Low 8.9-11.1 [facility] Comment on above: Performed By: #### 2 015402, 9855285, 98532344, 1171054, 54607749, 04657472 ####[facility] [address] [place] [address] Chloride [Moles/Vol] 103 mmol/L Normal 101-111 [facility] Comment on above: Performed By: #### 2 554777, 0763355, 12412873, 5900858, 39888785, 73592045 ####[facility] [address] [place] [address] CO2 [Moles/Vol] 24 mmol/L Normal 21-31 [facility] Comment on above: Performed By: #### 2 663648, 4161145, 49067713, 6702955, 44743156, 07790583 ####[facility] [address] [place] [address] Glucose [Mass/Vol] 275 mg/dL High 55-199 [facility] Comment on above: Result Comment: If t his glucose result represents a fasting glucose, interpretation should refer to the following reference range: 55-99 mg/dL Performed By: #### 2 481124, 4038065, 86716291, 8852288, 33561895, 17073604 ####[facility] [address] [place] [address] Potassium [Moles/Vol] 4.1 mmol/L Normal 3.5-5.3 [facility] Comment on above: Performed By: #### 2 127203, 4326879, 38658298, 0363929, 93887631, 84197345 ####[facility] [address] [place] [address] Sodium [Moles/Vol] 137 mmol/L Normal 135-145 [facility] Comment on above: Performed By: #### 2 985482, 6135549, 90833454, 2948813, 54918258, 89990111 ####[facility] [address] [place] [address] Blood Gas Art, with Lytes, G kj, [place] 01-17-2023 a/A Ratio Art 65.10 % Normal >=0.80 [facility] Comment on above: Performed By: #### 4 [id number] ####[facility] [address] [place] [address] AaDO2 Art 35.1 mmHg High 5.0-15.0 [facility] Comment on above: Performed By: #### 4 [id number] ####[facility] [address] [place] [address] Allens Test Positive Normal [facility] Comment on above: Performed By: #### 4 [id number] ####[facility] [address] [place] [address] Base Excess Arterial 3.7 mmol/L Normal >=2.8 [facility] Comment on above: Performed By: #### 4 55579503 ####[facility] [address] [place] [address] cCa2+ Art 4.74 mg/dL Normal 4.40-5.30 [facility] Comment on above: Performed By: #### 4 [id number] ####[facility] [address] [place] [address] cCl- Art 103.0 mmol/L Normal 101.0-111.0 [facility] Comment on above: Performed By: #### 4 31436312 ####[facility] [address]axuc[address] [place] [address] cGlu Art 247 mg/dL High 55-99 [facility] Comment on above: Performed By: #### 4 [id number] ####[facility] [address] [place] [address] cK+ Art 4.3 mmol/L Normal 3.5-5.3 [facility] Comment on above: Performed By: #### 4 [id number] ####[facility] [address] [place] [address] cLac Art .5 mmol/L Normal .5-2.2 [facility] Comment on above: Performed By: #### 4 07452140 ####[facility] G[address]lz[address] [place] [address] automobile club information clerk+ Art 141.0 mmol/L Normal 135.0-145.0 [facility] Comment on above: Performed By: #### 4 75611283 ####[facility] [address]om[address] [place] [address] Drawn by jered tejada Invalid Interpretation Code [facility] Comment on above: Performed By: #### 4 [id number] ####[facility] [address] [place] [address] FCOHb Art 1.2 % Low 1.5-4.9 [facility] Comment on above: Result Comment: Refe rence rangeNonsmoker <1.5%Smoker <5.0%Heavy Smoker <9.0% Performed By: #### 4 [id number] ####[facility] Fwjjymqau[address] [place] [address] FMetHb Art 0.3 % Normal 0.0-1.9 [facility] Comment on above: Performed By: #### 4 [id number] ####[facility] [address] [place] [address] FO2Hb Art 92.1 % Low 93.0-100.0 [facility] Comment on above: Performed By: #### 4 65293532 ####[facility] [address] [place] [address] HCO3 (Bld) [Moles/Vol] 27.6 mmol/L High 22.0-26.0 [facility] Comment on above: Performed By: #### 4 [id number] ####[facility] [address]df[address] [place] [address] Hemoglobin (Bld) [Mass/Vol] 10.9 g/dL Low 12.0-17.0 [facility] Comment on above: Performed By: #### 4 93039629 ####[facility] S[address]669 [place] [address] Oxygen saturation in Blood 93.5 % Low 95.0-100.0 [facility] Comment on above: Performed By: #### 4 15043712 ####[facility] [address] [place] [address] P CO2 Arterial 38.8 mmHg Normal 35.0-45.0 [facility] Comment on above: Performed By: #### 4 44922681 ####[facility] [address] [place] [address] P O2 Arterial 65.5 mmHg Low 80.0-100.0 [facility] Comment on above: Performed By: #### 4 67420517 ####[facility] [address]wnj[address] [place] [address] pH Arterial 7.462 High 7.350-7.450 [facility] Comment on above: Performed By: #### 4 [id number] ####[address] [address] Sample Site L Radial Normal [facility] Comment on above: Performed By: #### 4 [id number] ####[address] [address] Sample Type Arterial Draw Normal [facility] Comment on above: Performed By: #### 4 [id number] ####[place] CBC w/ Auto Diffon 3 Erythrocyte distribution width (RBC) [Ratio] 15.3 % High 10.9-14.2 [facility] Comment on above: Performed By: #### 2 224487, 7972248, 65651537, 1566868, 81686434, 88924762 ####[address] [place] [address] Hematocrit (Bld) [Volume fraction] 34.4 % Low 37.7-49.0 [facility] Comment on above: Performed By: #### 2 205705, 3985259, 62761374, 2258786, 23801594, 64583947 ####[facility] [address] [place] [address] Hemoglobin (Bld) [Mass/Vol] 11.1 g/dL Low 13.5-17.5 [facility] Comment on above: Performed By: #### 2 934864, 4881589, 12870552, 7005188, 30743645, 27642892 ####[address] [address] MCH (RBC) [Entitic mass] 28.3 pg Normal 27.0-34.0 [facility] Comment on above: Performed By: #### 2 028489, 1948832, 28462790, 5099510, 92018500, 31657306 ####[address] [address] MCHC (RBC) [Mass/Vol] 32.2 g/dL Normal 31.4-36.0 [facility] Comment on above: Performed By: #### 2 627897, 5810676, 58172489, 5499395, 66918287, 46141163 ####[address] [address] MCV (RBC) [Entitic vol] 87.8 fL Normal 80.0-100.0 [facility] Comment on above: Performed By: #### 2 490766, 6106609, 48788305, 9894525, 68616395, 96622676 ####[address] [address] Platelet mean volume (Bld) [Entitic vol] 8.9 fL Normal 6.4-10.8 [facility] Comment on above: Performed By: #### 2 330339, 2606653, 73786866, 6866570, 84367857, 99833572 ####[address] [address] Platelets (Bld) [#/Vol] 217.0 E9/L Normal 150.0-500.0 [facility] Comment on above: Performed By: #### 2 170406, 2887451, 40759164, 3916455, 43004933, 13814196 ####[address] [address] RBC (Bld) [#/Vol] 3.9 E12/L Low 4.3-5.9 [facility] Comment on above: Performed By: #### 2 787769, 6012712, 56606362, 1642989, 83161146, 64513199 ####[facility] [address] [place] [address] WBC corrected for nucl RBC Auto (Bld) [#/Vol] 6.3 E9/L Normal 4.0-11.0 [facility] Comment on above: Performed By: #### 2 828572, 0591538, 31293991, 1580155, 97192132, 71588654 ####[facility] [address] [place] [address] CT Head or Brain w/o Contras ton 01-17-2023 CT Head or Brain w/o Contrast Normal [facility] CT Spine Cervical w/o Contra ston 01-17-2023 CT Spine Cervical w/o Contrast Normal [facility] Capillary Glucose POCon 01-03 Glucose [Mass/Vol] 226 mg/dL High 55-99 [facility] Comment on above: Result Comment: Clemente MCCLAIN Performed By: #### 2 01698201 ####[address] [place] [address] Glucose [Mass/Vol] 172 mg/dL High 55-[address] [place] [address] Comment on above: Result Comment: Clemente MCCLAIN Performed By: #### 2 13827123 ####[address] [place] [address] Consent for Treatmenton 01-03 Consent for Treatment [id number] .[id number]:127 Normal [facility] ED Clinical Summaryon 2022 ED Clinical Summary Normal [facility] ED Note-Physicianon 01-18-20 ED Note-Physician Normal [facility] Comment on above: Result Comment: Elec tronically Signed By: Ander Dorman PA-C\.br\Date and Time Signed: 01/17/23 16:01 EDT\.br\Electronically Co-Signed By: Radha Huertas Katherin Null\Date and Time Co-Signed: 01/17/23 17:21 EDT ED Patient Education Noteon 01-17-2023 ED Patient Education Note Normal [facility] ED Patient Summaryon 023 ED Patient Summary Normal [facility] ED Traumaon 01-17-2023 ED Trauma [id number] 0CD:127 Normal [facility] EMS Documentationon 01-18-20 EMS Documentation Normal [facility] Monitor Recordon 01-17-2023 Monitor Record [id number]. 00CD:127 Normal [facility] Fci Recordson 01-17 Fci Records [id number] 0CD:127 Normal [facility] PT & PTTon 01-17-2023 aPTT Coag (PPP) [Time] 39.0 second(s) High 25.1-36.5 [facility] Comment on above: Order Comment: patie nt in xray, waiting by room to collect as soon as they return. [id number] 01/17/2023 14:54:02 EDT Result Comment: Para meter [...] the same coagulation reagent and instrumentation as [facility]. Currently there are no coagulation studies available worldwide for children to 14 days, and no normal ranges. Heparin therapeutic range (represented by Anti-Factor Xa activity of 0.2 - 0.4 U/mL) corresponds to PTT of 56.6 - 109.0 sec. Performed By: #### 2 399971, 8091108, 69088099, 7341952, 36780142, 95201954 ####[facility] [address] [place] [address] INR Coag (PPP) [Relative time] 1.4 {INR} Invalid Interpretation Code [facility] Comment on above: Order Comment: patie nt in xray, waiting by room to collect as soon as they return. [facility] 01/17/2023 14:54:02 EDT Result Comment: INR results are specifically intended to assess patients stabilized on long-term Anticoagulation therapy suggested INR?s ?Less Intensive Anticoagulation? 2.0 ? 3.0Conventional Range 3.0 ? 4.5 Performed By: #### 2 052310, 3946711, 42277600, 7524860, 56456269, 38146675 ####[facility] [address] [place] [address] PT Coag (PPP) [Time] 15.9 second(s) High 9.4-12.5 [facility] Comment on above: Order Comment: patie nt in xray, waiting by room to collect as soon as they return. [id number] 01/17/2023 14:54:02 EDT Result Comment: 15 d [...] the same coagulation reagent and instrumentation as [facility]. Currently there are no coagulation studies available worldwide for children to 14 days, and no normal ranges. Performed By: #### 2 305323, 2187568, 18279161, 2808144, 99331962, 31587468 ####[facility] [address] [place] [address] Troponin 0 Hr.on 01-17-2023 Troponin I.cardiac [Mass/Vol] 5.80 pg/mL Low 15.90-38.40 [facility] Comment on above: Result Comment: The 95% CI (Confidence Interval) PPV (Positive Predictive Value) for myocardial infarction in females is 38 pg/mL, in males 51 pg/mL. The results should be used in conjunction with clinical conditions of myocardial infarction.(140 Proof High Sensitivity Troponin I Instructions For Use, Buck Mason, May 2018) Performed By: #### 2 788500, 5663609, 28817609, 8970258, 88961652, 43469683 ####[facility] [address] [place] [address] Troponin 3 Hr.on 01-17-2023 Troponin I.cardiac [Mass/Vol] 6.90 pg/mL Low 15.90-38.40 [facility] Comment on above: Result Comment: The 95% CI (Confidence Interval) PPV (Positive Predictive Value) for myocardial infarction in females is 38 pg/mL, in males 51 pg/mL. The results should be used in conjunction with clinical conditions of myocardial infarction.(Access High Sensitivity Troponin I Instructions For Use, Buck Mason, May 2018) Performed By: #### 1 [id number] ####[facility] [address] [place] [address] Troponin 6 Hr.on 01-17-2023 Troponin I.cardiac [Mass/Vol] 6.50 pg/mL Low 15.90-38.40 [facility] Comment on above: Result Comment: The 95% CI (Confidence Interval) PPV (Positive Predictive Value) for myocardial infarction in females is 38 pg/mL, in males 51 pg/mL. The results should be used in conjunction with clinical conditions of myocardial infarction.(Access High Sensitivity Troponin I Instructions For Use, Buck Mason, May 2018) Performed By: #### 1 [id number] ####[facility] [address] [place] [address] XR Chest Single Viewon 01-17 XR Chest Single View Normal [facility] XR Pelvis 1 or 2 Viewson XR Pelvis 1 or 2 Views Normal Fi geeta [facility] eGFRon 01-17-2023 GFR/1.73 sq M.predicted among blacks MDRD (S/P/Bld) [Vol rate/Area] mL/min/{1.73_m2} Normal >=59 [facility] Comment on above: Order Comment: Order added by Discern Expert. Result Comment: eGFR is race adjusted. AA=. Performed By: #### 2 593292, 0524941, 11177140, 7490077, 39514935, 99657246 ####[facility] [address] [place] [address] GFR/1.73 sq M.predicted among non-blacks MDRD (S/P/Bld) [Vol rate/Area] 55 mL/min/1.73 m2 Low >=59 [facility] Comment on above: Order Comment: Order added by Discern Expert. Result Comment: Station Helper lokesh kidney disease could be indicated at eGFR's of less than 60 mL/min/1.73m2. Kidney failure is indicated at less than 15 mL/min/1.73m2. Performed By: #### 2 523388, 6866202, 88363303, 5812592, 36632120, 35198203 ####[facility] [address] [place] [address] CBC AUTO DIFFon 01-15-2023 BASO # 0.0 103/ul Normal 0.0-0.1 [facility] Comment on above: Performed By: #### C BC ####[facility] [address] [place], [place] [address]Sb. Areli Yousif Basophils/100 WBC (Bld) 0.5 % Normal 0.2-2.0 [facility] Comment on above: Performed By: #### C BC ####[facility] [address] [place], [place] [address]Rn. Areli Yousif EO # 0.5 103/ul Normal 0.0-0.7 [facility] Comment on above: Performed By: #### C BC ####[facility] [address] [place] [address]Dr. Areli Yousif Eosinophils/100 WBC (Bld) 9.0 % Critically high 0.9-7.0 [facility] Comment on above: Performed By: #### C BC ####[facility] [address] [place] [address]Dr. Areli Yousif Erythrocyte distribution width (RBC) [Ratio] 13.9 % Normal 11.0-15.0 [facility] Comment on above: Performed By: #### C BC ####[facility] [address] [place] [address]Dr. Areli Yousif Hematocrit (Bld) [Volume fraction] 33.2 % Critically low 42.0-54.0 [facility] Comment on above: Performed By: #### C BC ####[facility] [address] [place], [place] [address]Dr. Areli Yousif Hemoglobin (Bld) [Mass/Vol] 10.3 g/dL Critically low 14.0-18.0 [facility] Comment on above: Performed By: #### C BC ####[facility] [address] [place], [place] [address]Dr. Areli Yousif IG # 0.01 10e3/ul Normal 0.00-0.03 [facility] Comment on above: Performed By: #### C BC ####[facility] [address] [place], [place] [address]Dr. Areli Yousif IG % 0.2 % Normal 0.0-0.5 [facility] Comment on above: Performed By: #### C BC ####[facility] [address] [place], [place] [address]Dr. Areli Yousif LYMPH # 2.3 103/ul Normal 1.2-3.8 [facility] Comment on above: Performed By: #### C BC ####[facility] Ez[address] [place], [place] [address]Dr. Areli Yousif Lymphocytes/100 WBC (Bld) 40.3 % Normal 20.5-60.0 [facility] Comment on above: Performed By: #### C BC ####[facility] [address] [place] [address]Dr. Areli Yousif MANUAL DIFF REQ NO Normal [facility] Comment on above: Performed By: #### C BC ####[facility] [address] [place] [address]Dr. Areli Yousif MCH (RBC) [Entitic mass] 28.1 pg Normal 25.9-34.0 [facility] Comment on above: Performed By: #### C BC ####[facility] [address] [place], [place] [address]Dr. Areli Yousif MCHC (RBC) [Mass/Vol] 31.0 g/dL Normal 29.9-35.2 [facility] Comment on above: Performed By: #### C BC ####[facility] [address] [place], [place] [address]Dr. Areli Yousif MCV (RBC) [Entitic vol] 90.7 fL Normal 80.0-94.0 [facility] Comment on above: Performed By: #### C BC ####[facility] [address] [place], [place] [address]Dr. Areli Yousif MONO # 0.4 103/ul Normal 0.3-0.8 [facility] Comment on above: Performed By: #### C BC ####[facility] [address] [place], [place] [address]Dr. Areli Benja Monocytes/100 WBC (Bld) 6.1 % Normal 1.7-12.0 [facility] Comment on above: Performed By: #### C BC ####[facility] [address] [place], [place] [address]Dr. Arlei Yousif NEUT # 2.5 103/ul Normal 1.4-6.5 [facility] Comment on above: Performed By: #### C BC ####[facility] [address] [place], [place] [address]Dr. Areli Yousif Neutrophils/100 WBC (Bld) 43.9 % Normal 43.0-75.0 [facility] Comment on above: Performed By: #### C BC ####[facility] [address] [place], [place] [address]Oq. Areli Yousif Platelet mean volume (Bld) [Entitic vol] 10.4 fL Normal 9.5-13.5 [facility] Comment on above: Performed By: #### C BC ####[facility] [address] [place], [place] [address]My. Areli Yousif PLT 212 103/ul Normal 150-450 [facility] Comment on above: Performed By: #### C BC ####[facility] [address] [place], [place] [address]Vh. Areli Yousif RBC 3.66 106/ul Critically low 4.70-6.[address] [facility] Comment on above: Performed By: #### C BC ####[facility] [address] [place], [place] [address]Pb. Areli Yousif WBC 5.8 103/ul Normal 4.0-11.0 [facility] Comment on above: Performed By: #### C BC ####[facility] [address] [place], [place] [address]Ai. Areli Yousif [facility]03 SARS-CoV-2 (COVID-19) RNA MANSI+probe Ql (Unsp spec) Not detected Normal NOT DETECTED [facility] Comment on above: Result Comment: When diagnostic [...] for this test is supported by the [place] of Health and Human Service's declaration that [...] be used). Performed By: #### C VDTB ####[facility] [address] [place], [place] [address]Dr. Areli Yousif ECHO LIMITED STUDYon 023 ECHO LIMITED STUDY Normal [facility] ER URINE PROFILEon 3 Bilirubin Ql (U) Negative Normal NEGATIVE [facility] Comment on above: Performed By: #### E RUR ####[facility] [address] [place], [place] [address]Dr. Areli Yousif Clarity (U) CLEAR Normal CLEAR [facility] Comment on above: Performed By: #### E RUR ####[facility] [address] [place], [place] [address]Dr. Areli Yousif Color (U) LT. YELLOW Normal YELLOW [facility] Comment on above: Performed By: #### E RUR ####[facility] [address] [place], [place] [address]Dr. Areli Yousif ERUAHD A micrscopic examination will be performed if indicated. Normal [facility] Comment on above: Performed By: #### E RUR ####[facility] [address] [place], [place] [address]Dr. Areli Yousif Glucose Ql (U) Negative Normal NEGATIVE [facility] Comment on above: Performed By: #### E RUR ####[facility] [address] [place], [place] [address]Dr. Areli Yousif Hemoglobin Ql (U) Negative Normal NEGATIVE [facility] Comment on above: Performed By: #### E RUR ####[facility] [address] [place], [place] [address]Dr. Areli Yousif Ketones Ql (U) Negative Normal NEGATIVE [facility] Comment on above: Performed By: #### E RUR ####[facility] [address] [place], [place] [address]Dr. Areli Yousif LEUKOCYTES Negative Normal NEGATIVE [facility] Comment on above: Performed By: #### E RUR ####[facility] [address] [place] [address]Dr. Areli Yousif Nitrite Ql (U) Negative Normal NEGATIVE [facility] Comment on above: Performed By: #### E RUR ####[facility] [address] [place], [place] [address]Dr. Areli Yousif pH (U) 6.0 [pH] Normal 5-9 [facility] Comment on above: Performed By: #### E RUR ####[facility] [address] [place], [place] [address]DrDenae Yousif SPEC GRAVITY 1.010 Normal 1.005-<=1.02 5 [facility] Comment on above: Performed By: #### E RUR ####[facility] [address] [place], [place] [address]DrDenae Yousif UA PROTEIN TRACE Normal NEGATIVE/ TRACE [facility] Comment on above: Performed By: #### E RUR ####[facility] [address] [place], [place] [address]DrDenae Yousif UR MICRO IND NOT INDICATED Normal [facility] Comment on above: Performed By: #### E RUR ####[facility] [address] [place], [place] [address]Dr. Areli Yousif Urobilinogen Qn (U) 0.2 {Alyssia'U}/dL Normal 0.2 - 1. 0 [facility] Comment on above: Performed By: #### E RUR ####[facility] Ktfovongqq[address] [place], [place] [address]DrDenae Yousif POINT OF CARE GLUCOSEon 01-03 Glucose [Mass/Vol] 88 mg/dL Normal 74-106 [facility] Comment on above: Performed By: #### P OCGLUC ####[facility] Gmmirosdor[address] [place], [place] [address]DrDenae Yousif PROF 14(COMP METB)on 023 Albumin [Mass/Vol] 2.8 g/dL Critically low 3.4-5.0 [facility] Comment on above: Performed By: #### C MP ####[facility] [address] [place] [address]Dr. Areli Yousif Albumin/Globulin [Mass ratio] 0.9 {ratio} Normal [facility] Comment on above: Performed By: #### C MP ####[facility] Zockakubvc88[address] [place], [place] [address]Dr. Areli Yousif ALP [Catalytic activity/Vol] 76 U/L Normal 46-116 [facility] Comment on above: Performed By: #### C MP ####[facility] Otsddwokhz[address] [place], [place] [address]Dr. Areli Yousif ALT [Catalytic activity/Vol] 15 U/L Critically low 16-63 [facility] Comment on above: Performed By: #### C MP ####[facility] Xsxsdcbeew[address] [place], [place] [address]Dr. Areli Yousif Anion gap [Moles/Vol] 13.0 mmol/L Normal [facility] Comment on above: Performed By: #### C MP ####[facility] Ddpcxqpbhe12[address] [place], [place] [address]Dr. Areli Yousif AST [Catalytic activity/Vol] 14 U/L Critically low 15-37 [facility] Comment on above: Performed By: #### C MP ####[facility] Lwdrjkrfxd[address] [place], [place] [address]Dr. Areli Yousif Bilirubin [Mass/Vol] 0.2 mg/dL Normal 0.2-1.0 [facility] Comment on above: Performed By: #### C MP ####[facility] Eibaokvhzp9[address] [place], [place] [address]Dr. Areli Yousif Calcium [Mass/Vol] 8.9 mg/dL Normal 8.5-10.1 [facility] [place] Comment on above: Performed By: #### C MP ####[facility] Qhhsqkmpez25[address] [place], [place] [address]Dr. Areli Yousif Chloride [Moles/Vol] 106 mmol/L Normal 98-107 [facility] Comment on above: Performed By: #### C MP ####[facility] Ghzqfbkalt[address] [place], [place] [address]Dr. Areli Yousif CO2 [Moles/Vol] 28.9 mmol/L Normal 21.0-32.0 [facility] Comment on above: Performed By: #### C MP ####[facility] K[address] [place] [address]Dr. Areli Yousif Creatinine [Mass/Vol] 1.04 mg/dL Normal 0.70-1.30 [facility] Comment on above: Performed By: #### C MP ####[facility] Pdbtpwdwic[address] [place] [address]Dr. Areli Benja EGFR-AF MONEGASQUE >60 Normal >=60 [facility] Comment on above: Performed By: #### C MP ####[facility] Ytnlicvmkw[address] [place], [place] [address]Dr. Areli Benja EGFR-NON AF MONEGASQUE >60 Normal >=60 [facility] Comment on above: Performed By: #### C MP ####[facility] Uuhxbjvfpn87[address] [place], [place] [address]Dr. Areli Benja Globulin (S) [Mass/Vol] 3.2 g/dL Normal [facility] Comment on above: Performed By: #### C MP ####[facility] Tlouhjslsv99[address] [place], [place] [address]Dr. Areli Benja Glucose [Mass/Vol] 118 mg/dL Critically high 74-106 [facility] Comment on above: Performed By: #### C MP ####[facility] Efjqoawtch22[address] [place], [place] [address]Dr. Areli Benja Potassium [Moles/Vol] 3.9 mmol/L Normal 3.5-5.1 [facility] Comment on above: Performed By: #### C MP ####[facility] Kjyukzsydy[address] [place], [place] [address]Dr. Areli Yousif Protein [Mass/Vol] 6.0 g/dL Critically low 6.4-8.2 [facility] Comment on above: Performed By: #### C MP ####[facility] Zuarbmajol[address] [place], [place] [address]Dr. Tabbytulio Yousif Sodium [Moles/Vol] 144 mmol/L Normal 136-145 [facility] [place] Comment on above: Performed By: #### C MP ####[facility] Imdiqyrnnw7[address] [place], [place] [address]Dr. Areli Yousif Urea nitrogen [Mass/Vol] 32.0 mg/dL Critically high 7.0-18.0 [facility] Comment on above: Performed By: #### C MP ####[facility] Shgcljdbrh[address] [place], [place] [address]Dr. Areli Yousif Urea nitrogen/Creatinine [Mass ratio] 30.8 mg/mg Normal [facility] Comment on above: Performed By: #### C MP ####[facility] Uqkkotsyud14[address] [place], [place] [address]Dr. Areli Yousif AMMONIAon 01-14-2023 Ammonia (P) [Moles/Vol] 17 umol/L Normal 11-32 [facility] Comment on above: Performed By: #### A MM ####[facility] Edzzneepkk254[address] [place], [place] [address]Dr. Areli Yousif CBC AUTO DIFFon 01-14-2023 BASO # 0.0 103/ul Normal 0.0-0.1 [facility] Comment on above: Performed By: #### C BC ####[facility] Hvalhurgom[address] [place], [place] [address]Dr. Areli Benja Basophils/100 WBC (Bld) 0.5 % Normal 0.2-2.0 [facility] Comment on above: Performed By: #### C BC ####[facility] Dgcrpypyes[address] [place], [place] [address]Dr. Areli Yousif EO # 0.6 103/ul Normal 0.0-0.7 [facility] Comment on above: Performed By: #### C BC ####[facility] Ryhndnaeyi16[address] [place], [place] [address]Dr. Areli Yousif Eosinophils/100 WBC (Bld) 9.3 % Critically high 0.9-7.0 [facility] Comment on above: Performed By: #### C BC ####[facility] Dxbndnxoof826[address] [place], [place] [address]Dr. Areli Yousif Erythrocyte distribution width (RBC) [Ratio] 14.1 % Normal 11.0-15.0 [facility] Comment on above: Performed By: #### C BC ####[facility] [address] [place] [address]Dr. Areli Yousif Hematocrit (Bld) [Volume fraction] 33.0 % Critically low 42.0-54.0 [facility] Comment on above: Performed By: #### C BC ####[facility] Desgbfdsyn[address] [place] [address]Dr. Areli Yousif Hemoglobin (Bld) [Mass/Vol] 10.5 g/dL Critically low 14.0-18.0 [facility] Comment on above: Performed By: #### C BC ####[facility] Sklcsflicq53[address] [place], [place] [address]Dr. Tabbytulio Benja IG # 0.01 10e3/ul Normal 0.00-0.03 [facility] Comment on above: Performed By: #### C BC ####[facility] Ndtymddvgb13[address] [place], [place] [address]Dr. Areli Benja IG % 0.2 % Normal 0.0-0.5 [facility] Comment on above: Performed By: #### C BC ####[facility] Bpwnjqxqxw40[address] [place], [place] [address]Dr. Tabbytulio Benja LYMPH # 2.2 103/ul Normal 1.2-3.8 [facility] Comment on above: Performed By: #### C BC ####[facility] Svuggeslud[address] [place], [place] [address]Dr. Tabbytulio Yousif Lymphocytes/100 WBC (Bld) 35.0 % Normal 20.5-60.0 [facility] Comment on above: Performed By: #### C BC ####[facility] Miwamhucdv[address] [place], [place] [address]Dr. Areli Yousif MANUAL DIFF REQ NO Normal [facility] Comment on above: Performed By: #### C BC ####[facility] Abgfmzrsrz45[address] [place], [place] [address]Dr. Yitulio Yousif MCH (RBC) [Entitic mass] 28.8 pg Normal 25.9-34.0 [facility] Comment on above: Performed By: #### C BC ####[facility] Y[address]cefhjp[address] [place] [address]Dr. Areli Yousif MCHC (RBC) [Mass/Vol] 31.8 g/dL Normal 29.9-35.2 [facility] Comment on above: Performed By: #### C BC ####[facility] Hhwnyhadoq654[address] [place], [place] [address]Dr. Areli Yousif MCV (RBC) [Entitic vol] 90.4 fL Normal 80.0-94.0 [facility] Comment on above: Performed By: #### C BC ####[facility] Gfdagihtla[address] [place], [place] [address]Dr. Areli Benja MONO # 0.5 103/ul Normal 0.3-0.8 [facility] Comment on above: Performed By: #### C BC ####[facility] Vgvfikgpbu[address] [place], [place] [address]Dr. Areli Benja Monocytes/100 WBC (Bld) 7.1 % Normal 1.7-12.0 [facility] Comment on above: Performed By: #### C BC ####[facility] Nltnycputp[address] [place], [place] [address]Dr. Areli Yousif NEUT # 3.1 103/ul Normal 1.4-6.5 [facility] Comment on above: Performed By: #### C BC ####[facility] Cvpapexkbd[address] [place], [place] [address]Dr. Areli Benja Neutrophils/100 WBC (Bld) 47.9 % Normal 43.0-75.0 [facility] Comment on above: Performed By: #### C BC ####[facility] Aagrqqntdr[address] [place], [place] [address]Dr. Areli Yousif Platelet mean volume (Bld) [Entitic vol] 10.8 fL Normal 9.5-13.5 [facility] Comment on above: Performed By: #### C BC ####[facility] [address] [place] [id number]. Areli Yousif PLT 208 103/ul Normal 150-450 [facility] Comment on above: Performed By: #### C BC ####[facility] Csiycjsyqf4[address] [place] [id number]. Areli Yousif RBC 3.65 106/ul Critically low 4.70-6.[address] [facility] Comment on above: Performed By: #### C BC ####[facility] Smkpcmvtau44[address] [place] [id number]. Areli Yousif WBC 6.4 103/ul Normal 4.0-11.0 [facility] Comment on above: Performed By: #### C BC ####[facility] Qkoulauwum[address] [place] [address]Dr. Areli Yousif CT CSPINE WO CONon 3 CT CSPINE WO CON Normal [facility] CT HEAD WO CONon 01-14-2023 CT HEAD WO CON Normal The [facility] CT LSPINE WO CONon 3 CT LSPINE WO CON Normal [facility] CT TSPINE WO CONon 3 CT TSPINE WO CON Normal [facility] LACTATE/LACTIC ACIDon 2022 Lactate [Moles/Vol] 1.6 mmol/L Normal 0.4-2.0 [facility] Comment on above: Performed By: #### L ACT ####[facility] Ihrdoxateg[address] [place] [address]Dr. Areli Yousif PH VENOUS BLOODon 01-14-2023 PCO2 VENOUS 44.9 mmHg Normal 40.0-52.0 [facility] Comment on above: Performed By: #### P HVEN ####[facility] Aygsjxjeqy[address] [place] [id number]. Areli Yousif pH VENOUS 7.407 Normal 7.330-7.430 [facility] Comment on above: Performed By: #### P HVEN ####[facility] Biqqkpydqf50[address] [place] [id number]. Areli Benja POINT OF CARE GLUCOSEon 04-1 2-2023 Glucose [Mass/Vol] 231 mg/dL Critically high 74-106 [facility] Comment on above: Performed By: #### P OCGLUC ####[facility] K[address]dtjehtki[address] [place] [address]Dr. Areli Yousif PROF 14(COMP METB)on 023 Albumin [Mass/Vol] 2.9 g/dL Critically low 3.4-5.0 [facility] Comment on above: Performed By: #### T SH, CMP, HSTROPN ####[facility] Xyzyeuoakb[address] [place], [place] [address]Dr. Areli Yousif Albumin/Globulin [Mass ratio] 0.8 {ratio} Normal [facility] Comment on above: Performed By: #### T SH, CMP, HSTROPN ####[facility] Xasnprcbbb[address] [place], [place] [address]Dr. Areli Yousif ALP [Catalytic activity/Vol] 85 U/L Normal 46-116 [facility] Comment on above: Performed By: #### T SH, CMP, HSTROPN ####[facility] Gsfeoolcxq37[address] [place], [place] [address]Dr. Areli Yousif ALT [Catalytic activity/Vol] 16 U/L Normal 16-63 [facility] Comment on above: Performed By: #### T SH, CMP, HSTROPN ####[facility] Ptkpnbolbl[address] [place] [address]Dr. Areli Yousif Anion gap [Moles/Vol] 13.2 mmol/L Normal [facility] Comment on above: Performed By: #### T SH, CMP, HSTROPN ####[facility] Rtzyfhwufd[address] [place], [place] [address]Dr. Areli Yousif AST [Catalytic activity/Vol] 13 U/L Critically low 15-37 [facility] Comment on above: Performed By: #### T SH, CMP, HSTROPN ####[facility] Hirhwssvej[address] [place] [address]Dr. Areli Yousif Bilirubin [Mass/Vol] 0.2 mg/dL Normal 0.2-1.0 [facility] Comment on above: Performed By: #### T SH, CMP, HSTROPN ####[facility] Cusj[address]pjof[address] [place] [address]Dr. Areli Yousif Calcium [Mass/Vol] 9.0 mg/dL Normal 8.5-10.1 [facility] Comment on above: Performed By: #### T SH, CMP, HSTROPN ####[facility] Rshuekefma[address] [place] [address]Dr. Areli Yousif Chloride [Moles/Vol] 104 mmol/L Normal 98-107 [facility] Comment on above: Performed By: #### T SH, CMP, HSTROPN ####[facility] Yjiwzabibm[address] [place], [place] [address]Dr. Areli Yousif CO2 [Moles/Vol] 28.3 mmol/L Normal 21.0-32.0 [facility] Comment on above: Performed By: #### T SH, CMP, HSTROPN ####[facility] Fhmccajkoc[address] [place], [place] [address]Dr. Areli Yousif Creatinine [Mass/Vol] 1.26 mg/dL Normal 0.70-1.30 [facility] Comment on above: Performed By: #### T SH, CMP, HSTROPN ####[facility] Mhkmudobmc[address] [place], [place] [address]Dr. Areli Yousif EGFR-AF MONEGASQUE >60 Normal >=60 [facility] Comment on above: Performed By: #### T SH, CMP, HSTROPN ####[facility] Y[address]vfbe[address] [place] [address]Dr. Areli Yousif EGFR-NON AF MONEGASQUE 57 mL/min/1.73m2 Critically low >=60 [facility] Comment on above: Performed By: #### T SH, CMP, HSTROPN ####[facility] Bmzybkltes[address] [place] [address]Dr. Areli Yousif Globulin (S) [Mass/Vol] 3.5 g/dL Normal [facility] Comment on above: Performed By: #### T SH, CMP, HSTROPN ####[facility] Sgaagsqsct24[address] [place] [address]Dr. Areli Yousif Glucose [Mass/Vol] 233 mg/dL Critically high 74-106 [facility] Comment on above: Performed By: #### T SH, CMP, HSTROPN ####[facility] K[address]yspfnepx[address] [place] [address]Dr. Areli Yousif Potassium [Moles/Vol] 4.5 mmol/L Normal 3.5-5.1 [facility] Comment on above: Performed By: #### T SH, CMP, HSTROPN ####[facility] Hwuwnzwpow[address] [place] [address]Dr. Areli Yousfi Protein [Mass/Vol] 6.4 g/dL Normal 6.4-8.2 [facility] Comment on above: Performed By: #### T SH, CMP, HSTROPN ####[facility] Vyxmtfnbcl[address] [place] [address]Dr. Areli Yousif Sodium [Moles/Vol] 141 mmol/L Normal 136-145 [facility] Comment on above: Performed By: #### T SH, CMP, HSTROPN ####[facility] Oplmddkght[address] [place], [place] [address]Dr. Areli Yousif Urea nitrogen [Mass/Vol] 40.0 mg/dL Critically high 7.0-18.0 [facility] Comment on above: Performed By: #### T SH, CMP, HSTROPN ####[facility] Dnmnfrryso[address] [place] [address]Dr. Areli Yousif Urea nitrogen/Creatinine [Mass ratio] 31.7 mg/mg Normal [facility] Comment on above: Performed By: #### T SH, CMP, HSTROPN ####[facility] Ohfvcwqtyx[address] [place], [place] [address]Dr. Areli Yousif PROTIMEon 01-14-2023 INR Coag (PPP) [Relative time] 1.01 {INR} Normal [facility] Comment on above: Performed By: #### P TT, PT ####[facility] [address]fj[address]vt[address] [place] [address]Dr. Areli Yousif INR GUIDELINES SEE BELOW Normal [facility] Comment on above: Result Comment: LANDON RED INR: 2.0 - 3.0 CONDITIONS NOT LISTED BELOW 2.5 - 3.5 FOR PROSTHETIC HEART VALVE REPLACEMENT 2.5 - 3.5 RECURRENT THROMBOSIS Performed By: #### P TT, PT ####[facility] [address] [place] [address]Dr. Areli Yousif PT Coag (PPP) [Time] 10.7 s Normal 9.0-11.6 [facility] Comment on above: Performed By: #### P TT, PT ####[facility] Wsyfhoqnoo[address] [place] [address]Dr. Areli Yousif PTTon 01-14-2023 aPTT Coag (Bld) [Time] 29.4 s Normal 22.3-36.2 [facility] Comment on above: Performed By: #### P TT, PT ####[facility] Iaudccrezz9[address] [place], [place] [address]Dr. Areli Yousif TROPONIN, HIGH SENSITIVITYon 01-14-2023 HSTROP 7.6 pg/mL Normal 4.0-76.1 [facility] Comment on above: Result Comment: CUT- OFF POINTS HAVE BEEN ESTABLISHED BASED ON THE FOURTH UNIVERSAL DEFINITIONS OF MYOCARDIALINFARCTION. THE UPPER REFERENCE LIMIT (URL) OF TROPONIN, DEFINED THE 99TH PERCENTILE OFcTnI DISTRIBUTION IN A REFERENCE POPULATION, HAS BEEN CONFIRMED THE DECISION THRESHOLDFOR [place] DIAGNOSIS. Performed By: #### T SH, CMP, HSTROPN ####[facility] P[address]fsxffyru[address] [place] [address]Dr. Areli Yousif TSHon 01-14-2023 TSH 2.590 uIU/mL Normal 0.358-3.740 [facility] Comment on above: Performed By: #### T SH, CMP, HSTROPN ####[facility] Jyuscnlzlc[address] [place] [address]Dr. Areli Yousif XR CHEST 1 Von 01-14-2023 XR CHEST 1 V Normal [facility] XR KNEE RT 4V or >on 023 XR KNEE RT 4V or > Normal The [facility] XR PELVIS 1_2 VIEWSon 2022 XR PELVIS 1_2 VIEWS Normal [facility] Coding Summary.on 01-13-2023 Coding Summary. Normal [facility] Consent for Treatmenton 12-05 Consent for Treatment [id number] 0CD:127 Normal [facility] Heart and Vascular Office/Cl inic Noteon 01-01-2023 Heart and Vascular Office/Clinic Note Normal [facility] Comment on above: Result Comment: Elec tronically Signed By: Bushra JIMENEZ CNP\.br\Date and Time Signed: 01/01/23 09:43 EDT Progress Note-Nurseon 2022 Progress Note-Nurse [id number]. 00CD:127 Normal [facility] Progress Note-Nurse [id number]. 00CD:127 Normal [facility] Coding Summary.on 12-29-2022 Coding Summary. Normal [facility] CHEMISTRYOrdered By: Lab ROP User on 12-25-2022 Glucose [Mass/Vol] 214 mg/dL High 55 - 99 mg/dL [facility] POC Subsection Comment on above: Result Comment: Clemente christopher RN/ POC Device SN [id number] Invalid Interpretation Code [facility] POC Subsection POC User ID [id number] Invalid Interpretation Code [facility] POC Subsection POC Username MARCY BAILEY Invalid Interpretation Code [facility] POC Subsection Glucose [Mass/Vol] 140 mg/dL High 55 - 99 mg/dL [facility] POC Subsection Comment on above: Result Comment: Clemente christopher RN/ POC Device SN [id number] Invalid Interpretation Code [facility] POC Subsection POC User ID [id number] Invalid Interpretation Code [facility] POC Subsection POC [...] 202 mg/dL High 55 - 99 mg/dL [facility] POC Subsection POC Device SN [id number] Invalid Interpretation Code [facility] POC Subsection POC User ID [id number] Invalid Interpretation Code [facility] POC Subsection POC Username SIR BENIGNO PATINO Invalid Interpretation Code [facility] POC Subsection CHEMISTRYOrdered By: SYSTEM SYSTEM on [...] 8.9 E9/L Normal 4.0 - 11.0 E9/L [facility] HemeAutoSS BLOOD BANKOrdered By: Brianna Londono on 12-21-2022 ABO/Rh Retype Interp Negative Invalid Interpretation Code [facility] BB Subsection CHEMISTRYOrdered By: SYSTEM SYSTEM on [...] rate/Area] mL/min/1.73 m2 Normal >=59mL/min/1 .73 m2 [facility] Chem S GFR/1.73 sq M.predicted among non-blacks MDRD (S/P/Bld) [Vol rate/Area] mL/min/1.73 m2 Normal >=59mL/min/1 .73 m2 [facility] Chem S Glucose [Mass/Vol] 127 mg/dL Normal [...] AM) Normal Negative [facility] UA Auto SS [place].plasma/[place] .RBC (Bld) [Mass ratio] 0-3 /HPF Normal [...] FT UA Auto SS Urobilinogen Qn (U) 0.1059684 {Alyssia'U}/dL Normal 0.0 - 1.0 EU/dL [facility] [...] [facility] Remisol Ethanol [Mass/Vol] mg/dL Normal <=7mg/dL [facility] R emisol GFR/1.73 sq M.predicted among blacks MDRD (S/P/Bld) [Vol rate/Area] mL/min/1.73 m2 Normal >=59mL/min/1 .73 m2 [facility] Chem S GFR/1.73 sq M.predicted among non-blacks MDRD (S/P/Bld) [Vol rate/Area] 60 mL/min/1.73 m2 Normal >=59mL/min/1 .73 m2 [facility] Chem S Globulin (S) [Mass/Vol] 3.2 g/dL [...] (Bld) [Mass/Vol] 867.0 pg/mL Normal <=900.0 [facility] Comment on above: Performed By: #### C MADM, CMP, BNP ####[facility] [address]rcskqirs[address] [place] [address]Dr. Areli Yousif CARDIAC ASHLEY ADMITon 023 CK [Catalytic activity/Vol] 18 U/L Critically low 39-308 [facility] Comment on above: Performed By: #### C MADM, CMP, BNP ####[facility] Aoyxtfihgu07[address] [place] [id number]. Areli Yousif CK.MB [Mass/Vol] 0.70 ng/mL Normal <=3.60 [facility] Comment on above: Performed By: #### C MADM, CMP, BNP ####[facility] Ckgueutmcn5[address] [place] [id number]. Areli Yousif HSTROP 6.5 pg/mL Normal 4.0-76.1 [facility] Comment on above: Result Comment: CUT- OFF POINTS HAVE BEEN ESTABLISHED BASED ON THE FOURTH UNIVERSAL DEFINITIONS OF MYOCARDIALINFARCTION. THE UPPER REFERENCE LIMIT (URL) OF TROPONIN, DEFINED THE 99TH PERCENTILE OFcTnI DISTRIBUTION IN A REFERENCE POPULATION, HAS BEEN CONFIRMED THE DECISION THRESHOLDFOR [place] DIAGNOSIS. Performed By: #### C MADM, CMP, BNP ####[facility] Yptpjgqnez[address] [place] [address]Dr. Areli Yousif LAWRENCE 41 ng/mL Normal 16-96 [facility] Comment on above: Performed By: #### C MADM, CMP, BNP ####[facility] Kdpybhjynn[address] [place] [address]Dr. Areli Yousif CBC AUTO DIFFon 12-17-2022 BASO # 0.0 103/ul Normal 0.0-0.1 [facility] Comment on above: Performed By: #### C BC ####[facility] Ukdkmsuvva[address] [place], [place] [address]Dr. Areli Yousif Basophils/100 WBC (Bld) 0.3 % Normal 0.2-2.0 [facility] Comment on above: Performed By: #### C BC ####[facility] Zzhlhbhtkx[address] [place], [place] [address]Dr. Areli Yousif EO # 0.1 103/ul Normal 0.0-0.7 [facility] Comment on above: Performed By: #### C BC ####[facility] [address]wkspzyyq[address] [place], [place] [address]Dr. Areli Yousif Eosinophils/100 WBC (Bld) 1.1 % Normal 0.9-7.0 [facility] Comment on above: Performed By: #### C BC ####[facility] Shwqcpgrgb[address] [place], [place] [address]Dr. Areli Yousif Erythrocyte distribution width (RBC) [Ratio] 12.9 % Normal 11.0-15.0 [facility] Comment on above: Performed By: #### C BC ####[facility] Ptlctvxgnw[address] [place], [place] [address]Dr. Areli Yousif Hematocrit (Bld) [Volume fraction] 35.9 % Critically low 42.0-54.0 [facility] Comment on above: Performed By: #### C BC ####[facility] Tzwepksppd42[address] [place] [address]Dr. Areli Yousif Hemoglobin (Bld) [Mass/Vol] 11.2 g/dL Critically low 14.0-18.0 [facility] Comment on above: Performed By: #### C BC ####[facility] Bvnuqbuxcl[address] [place] [address]Dr. Areli Yousif IG # 0.03 10e3/ul Normal 0.00-0.03 [facility] Comment on above: Performed By: #### C BC ####[facility] [address]ekwunemjb[address] [place], [place] [address]Dr. Tabbytulio Yousif IG % 0.4 % Normal 0.0-0.5 [facility] Comment on above: Performed By: #### C BC ####[facility] Nvqkhurgmq[address] [place], [place] [address]Dr. Areli Yousif LYMPH # 1.1 103/ul Critically low 1.2-3.8 [facility] Comment on above: Performed By: #### C BC ####[facility] [address]zbdlsjexl[address] [place], [place] [address]Dr. Areli Benja Lymphocytes/100 WBC (Bld) 14.5 % Critically low 20.5-60.0 [facility] Comment on above: Performed By: #### C BC ####[facility] Kkbumghlge[address] [place], [place] [address]Dr. Areli Yousif MANUAL DIFF REQ NO Normal [facility] Comment on above: Performed By: #### C BC ####[facility] Luxpdunsxy[address] [place], [place] [address]Dr. Areli Yousif MCH (RBC) [Entitic mass] 28.2 pg Normal 25.9-34.0 [facility] Comment on above: Performed By: #### C BC ####[facility] Eqffmthyln[address] [place], [place] [address]Dr. Areli Yousif MCHC (RBC) [Mass/Vol] 31.2 g/dL Normal 29.9-35.2 [facility] Comment on above: Performed By: #### C BC ####[facility] Tbpdghkrso9676 [place] [id number]. Areli Yousif MCV (RBC) [Entitic vol] 90.4 fL Normal 80.0-94.0 [facility] Comment on above: Performed By: #### C BC ####[facility] Wzksnmzhvl4831 [place] [id number] Areli Yousif MONO # 0.1 103/ul Critically low 0.3-0.8 [facility] Comment on above: Performed By: #### C BC ####[facility] Uiudiewela8183 [place] [id number]. Areli Benja Monocytes/100 WBC (Bld) 1.6 % Critically low 1.7-12.0 [facility] Comment on above: Performed By: #### C BC ####[facility] Yuejcbimqd[address] [place], [place] [address]Dr. Areli Yousif NEUT # 6.0 103/ul Normal 1.4-6.5 [facility] Comment on above: Performed By: #### C BC ####[facility] Yqidpsuxcu[address] [place], [place] [id number]. Areli Benja Neutrophils/100 WBC (Bld) 82.1 % Critically high 43.0-75.0 [facility] Comment on above: Performed By: #### C BC ####[facility] Fjmjfedppe04[address] [place], [place] [address]Dr. Areli Benja Platelet mean volume (Bld) [Entitic vol] 10.1 fL Normal 9.5-13.5 [facility] Comment on above: Performed By: #### C BC ####[facility] Ddeaqnpxsn[address] [place], [place] [id number]. Areli Yousif PLT 370 103/ul Normal 150-450 [facility] Comment on above: Performed By: #### C BC ####[facility] Djmbrmlsry7930 [place] [id number]. Areli Yousif RBC 3.97 106/ul Critically low 4.70-6.[address] [facility] Comment on above: Performed By: #### C BC ####[facility] Iaiaaqtcyu0309 [place] [id number]. Areli Yousif WBC 7.3 103/ul Normal 4.0-11.0 [facility] Comment on above: Performed By: #### C BC ####[facility] Rzneojeyxy4574 [place] [id number]. Tabbytulio Yousif CT CSPINE WO CONon 3 CT CSPINE WO CON Normal [facility] CT STROKE HEAD WOon 12-18-19 CT STROKE HEAD WO Normal [facility] CTA NECK WO W CONon 12-18-19 CTA NECK WO W CON Normal [facility] DRUG SCREEN RAPID (URINE)on 12-17-2022 AMP Negative Normal NEGATIVE [facility] Comment on above: Performed By: #### E RUR, DRUGRPD ####[facility] [address]mvtrbkm[address] [place] [address]Dr. Areli Yousif BAR Negative Normal NEGATIVE [facility] Comment on above: Performed By: #### E RUR, DRUGRPD ####[facility] Hyulfkogzx[address] [place] [address]Dr. Areli Yousif BUP Negative Normal NEGATIVE [facility] Comment on above: Performed By: #### E RUR, DRUGRPD ####[facility] Yzpsqltice[address] [place] [address]Dr. Areli Yousif BZO Negative Normal NEGATIVE [facility] Comment on above: Performed By: #### E RUR, DRUGRPD ####[facility] Pfcrcrkczb8396 [place] [id number]. Areli Yousif KAMALJIT Negative Normal NEGATIVE [facility] Comment on above: Performed By: #### E RUR, DRUGRPD ####[facility] Wuxnpdghgc79[address] [place] [address]Dr. Areli Yousif CUT-OFFS SEE BELOW Normal [facility] Comment on above: Result Comment: AMP (Amphetamine): 500ng/mL, BAR (Barbituates): 200 ng/mL, BZO (Benzodiazepines): 150 ng/mL, BUP (Buprenorphine): 10 ng/mL, KAMALJIT (Cocaine): 150 ng/mL, mAMP (Methamphetamine): 500 ng/mL, MTD (Methadone): 200 ng/mL, OPI (Opiates): 100 ng/mL, OXY (Oxycodone): 100 ng/mL, PCP (Phencyclidine): 25 ng/mL, PPX (Propoxyphene): 300 ng/mL, THC (Cannabinoids): 50 ng/mL, TCA (Trycyclic Antidepressants): 300 ng/mL Performed By: #### E RUR, DRUGRPD ####[facility] Vhifkzivch[address] [place], [place] [address]Dr. [facility] DRUG CUT HEADER DRUG CLASS TEST SYST EM CUT-OFF CONCENTRATIONS ARE FOLLOWS: Normal [facility] Comment on above: Performed By: #### E RUR, DRUGRPD ####[facility] Nkdbevmyto67[address] [place], [place] [address]Dr. Areli Yousif mAMP Negative Normal NEGATIVE [facility] Comment on above: Performed By: #### E RUR, DRUGRPD ####[facility] Qrgzcmpfxt038[address] [place], [place] [address]Dr. Areli [facility] MTD Negative Normal NEGATIVE [facility] Comment on above: Performed By: #### E RUR, DRUGRPD ####[facility] Ghdjjkmici40[address] [place], [place] [address]Dr. Areli [facility] OPI Negative Normal NEGATIVE [facility] Comment on above: Performed By: #### E RUR, DRUGRPD ####[facility] Dqxufmzamv[address] [place], [place] [address]Dr. Areli [facility] OXY Negative Normal NEGATIVE [facility] Comment on above: Performed By: #### E RUR, DRUGRPD ####[facility] Nsjdnihark[address] [place], [place] [address]Dr. tulio [facility] PCP Negative Normal NEGATIVE [facility] Comment on above: Performed By: #### E RUR, DRUGRPD ####[facility] Stkwfyuaqi24[address] [place], [place] [address]Dr. Areli [facility] PPX Negative Normal NEGATIVE [facility] Comment on above: Performed By: #### Sid BARKER DRUGRPD ####[facility] Hygppagsfo86[address] [place], [place] [address]Dr. Areli Yousif TCA Negative Normal NEGATIVE [facility] Comment on above: Performed By: #### Sid BARKER DRUGRPD ####[facility] Uezzkwjizf04[address] [place], [place] [address]Dr. Areli Yousif THC Negative Normal NEGATIVE [facility] Comment on above: Performed By: #### Sid BARKER DRUGRPD ####[facility] Lqiblhhugd48[address] [place], [place] [address]Dr. Areli Yousif ER URINE PROFILEon 3 Bilirubin Ql (U) Negative Normal NEGATIVE [facility] Comment on above: Performed By: #### Sid BARKER DRUGRPD ####[facility] Iwrtnxznxh796[address] [place], [place] [address]Dr. Areli Yousif Clarity (U) CLEAR Normal CLEAR [facility] Comment on above: Performed By: #### Sid BARKER DRUGRPD ####[facility] Kxlvqkohcw39[address] [place], [place] [address]Dr. Areli Yousif Color (U) LT. YELLOW Normal YELLOW [facility] Comment on above: Performed By: #### Sid BARKER DRUGRPD ####[facility] Imftqnqsge9[address] [place], [place] [address]Dr. Tabbytulio Yousif ERUAHD A micrscopic examination will be performed if indicated. Normal [facility] Comment on above: Performed By: #### Sid BARKER DRUGRPD ####[facility] Lrwwxolyoz238[address] [place], [place] [address]Dr. Tabbytulio Benja Glucose Ql (U) 250 mg/dl Abnormal NEGATIVE [facility] Comment on above: Performed By: #### Sid BARKER DRUGRPD ####[facility] Cdsdwkbhna7[address] [place], [place] [address]Dr. Tabbytulio Yousif Hemoglobin Ql (U) Negative Normal NEGATIVE [facility] Comment on above: Performed By: #### Sid BARKER DRUGRPD ####[facility] Rieuetrxpc4413[address] [place], [place] [address]Dr. Areli Yousif Ketones Ql (U) Negative Normal NEGATIVE [facility] Comment on above: Performed By: #### Sid RUJosé Miguel DRUGRPD ####[facility] Qdmfimfuyj54[address] [place] [address]Dr. Areli Yousif LEUKOCYTES Negative Normal NEGATIVE [facility] Comment on above: Performed By: #### Sid RUJosé Miguel DRUGRPD ####[facility] Npulyyspff54[address] [place] [address]Dr. Areli Yousif Nitrite Ql (U) Negative Normal NEGATIVE [facility] Comment on above: Performed By: #### Sid BARKER DRUGRPD ####[facility] Hqpaituiqd2436 [place] [address]Dr. Areli Yousif pH (U) 6.5 [pH] Normal 5-9 [facility] Comment on above: Performed By: #### Sid BARKER DRUGRPD ####[facility] Wjwgubuxgj89[address] [place] [address]Dr. Areli Yousif SPEC GRAVITY 1.010 Normal 1.005-<=1.02 5 [facility] Comment on above: Performed By: #### Sid BARKER DRUGRPD ####[facility] Vdtylyyilg[address] [place], [place] [address]Dr. Areli Yousif UA PROTEIN Negative Normal NEGATIVE/ TRACE [facility] Comment on above: Performed By: #### Sid BARKER DRUGRPD ####[facility] Fcvejtixop6236 [place] [address]Dr. Areli Yousif UR MICRO IND NOT INDICATED Normal [facility] Comment on above: Performed By: #### Sid RUJosé Miguel DRUGRPD ####[facility] Qeaohokcem2157 [place] [address]Dr. Areli Yousif Urobilinogen Qn (U) 0.2 {Alyssia'U}/dL Normal 0.2 - 1. 0 [facility] Comment on above: Performed By: #### Sid RUJosé Miguel, DRUGRPD ####[facility] Mkhnvkkvod[address] [place] [address]Dr. Areli Yousif POINT OF CARE GLUCOSEon 03-1 5-2023 Glucose [Mass/Vol] 266 mg/dL Critically high 74-106 [facility] Comment on above: Performed By: #### P OCGLUC ####[facility] Wgfzvnszpz42[address] [place] [address]Dr. Areli Yousif POTASSIUMon 12-17-2022 Potassium [Moles/Vol] 5.3 mmol/L Critically high 3.5-5.1 [facility] Comment on above: Performed By: #### K ####[facility] Sdzxszgkub18[address] [place] [address]Dr. Areli Yousif PROF 14(COMP METB)on 023 Albumin [Mass/Vol] 3.0 g/dL Critically low 3.4-5.0 [facility] Comment on above: Performed By: #### C MADM, CMP, BNP ####[facility] Eidjkpwjdo8217 [place] [address]Dr. Areli Yousif Albumin/Globulin [Mass ratio] 0.8 {ratio} Normal [facility] Comment on above: Performed By: #### C MADM, CMP, BNP ####[facility] Difhlohrsr0153 [place] [address]Dr. Areli Yousif ALP [Catalytic activity/Vol] 94 U/L Normal 46-116 [facility] Comment on above: Performed By: #### C MADM, CMP, BNP ####[facility] Hzrmdysjps2416 [place] [address]Dr. Areli Yousif ALT [Catalytic activity/Vol] 27 U/L Normal 16-63 [facility] Comment on above: Performed By: #### C MADM, CMP, BNP ####[facility] Qbcvdlkonx0150 [place] [address]Dr. Areli Yousif Anion gap [Moles/Vol] 8.6 mmol/L Normal [facility] Comment on above: Performed By: #### C MADM, CMP, BNP ####[facility] Zkxknnlluf6267 [place] [address]Dr. Areli Yousif AST [Catalytic activity/Vol] 15 U/L Normal 15-37 [facility] Comment on above: Performed By: #### C MADM, CMP, BNP ####[facility] Tdwnycdmrc6182 [place] [address]Dr. Areli Yousif Bilirubin [Mass/Vol] 0.2 mg/dL Normal 0.2-1.0 [facility] Comment on above: Performed By: #### C MADM, CMP, BNP ####[facility] Nahmjejvbt4[address] [place] [address]Dr. Areli Yousif Calcium [Mass/Vol] 9.0 mg/dL Normal 8.5-10.1 [facility] Comment on above: Performed By: #### C MADM, CMP, BNP ####[facility] Ixdadjbgbe50[address] [place], [place] [address]Dr. Areli Yousif Chloride [Moles/Vol] 101 mmol/L Normal 98-107 [facility] Comment on above: Performed By: #### C MADM, CMP, BNP ####[facility] Srjtznfkgz[address] [place], [place] [address]Dr. Areli Yousif CO2 [Moles/Vol] 30.0 mmol/L Normal 21.0-32.0 [facility] Comment on above: Performed By: #### C MADM, CMP, BNP ####[facility] Xvyhbhoiaw[address] [place], [place] [address]Dr. Areli Yousif Creatinine [Mass/Vol] 1.25 mg/dL Normal 0.70-1.30 [facility] Comment on above: Performed By: #### C MADM, CMP, BNP ####[facility] Hwtmfcrkdz8[address] [place], [place] [address]Dr. Areli Yousif EGFR-AF MONEGASQUE >60 Normal >=60 [facility] Comment on above: Performed By: #### C MADM, CMP, BNP ####[facility] Pwjwvxqndm[address] [place], [place] [address]Dr. Areli Yousif EGFR-NON AF MONEGASQUE 57 mL/min/1.73m2 Critically low >=60 [facility] Comment on above: Performed By: #### C MADM, CMP, BNP ####[facility] Xcbawvtzbj8792 [place] [address]Dr. Areli Yousif Globulin (S) [Mass/Vol] 3.9 g/dL Normal [facility] Comment on above: Performed By: #### C MADM, CMP, BNP ####[facility] Pwmvsadanf9159 [place] [address]Dr. Areli Yousif Glucose [Mass/Vol] 273 mg/dL Critically high 74-106 [facility] Comment on above: Performed By: #### C MADM, CMP, BNP ####[facility] Dmlzvyoonf3772 [place] [address]Dr. Areli Yousif Potassium [Moles/Vol] 5.6 mmol/L Critically high 3.5-5.1 [facility] Comment on above: Performed By: #### C MADM, CMP, BNP ####[facility] Brjrmylkin8486 [place] [address]Dr. Areli Yousif Protein [Mass/Vol] 6.9 g/dL Normal 6.4-8.2 [facility] Comment on above: Performed By: #### C MADM, CMP, BNP ####[facility] Nptobvjduz4879 [place] [address]Dr. Areli Yousif Sodium [Moles/Vol] 134 mmol/L Critically low 136-145 [facility] Comment on above: Performed By: #### C MADM, CMP, BNP ####[facility] Ixnrqeervg0546 [place] [address]Dr. Areli Yousif Urea nitrogen [Mass/Vol] 40.0 mg/dL Critically high 7.0-18.0 [facility] Comment on above: Performed By: #### C MADM, CMP, BNP ####[facility] Eveagmadux[address] [place], [place] [address]Dr. Areli Yousif Urea nitrogen/Creatinine [Mass ratio] 32.0 mg/mg Normal [facility] Comment on above: Performed By: #### C MADM, CMP, BNP ####[facility] Xsxralptxl10[address] [place] [address]Dr. Areli Yousif PROTIMEon 12-17-2022 INR Coag (PPP) [Relative time] 1.02 {INR} Normal [facility] Comment on above: Performed By: #### P T, PTT ####[facility] Munasdomqw[address] [place], [place] [address]Dr. Areli Yousif INR GUIDELINES SEE BELOW Normal [facility] Comment on above: Result Comment: LANDON RED INR: 2.0 - 3.0 CONDITIONS NOT LISTED BELOW 2.5 - 3.5 FOR PROSTHETIC HEART VALVE REPLACEMENT 2.5 - 3.5 RECURRENT THROMBOSIS Performed By: #### P T, PTT ####[facility] Moinzbrpgt80[address] [place], [place] [address]Dr. Areli Yousif PT Coag (PPP) [Time] 10.8 s Normal 9.0-11.6 [facility] Comment on above: Performed By: #### P T, PTT ####[facility] Lowptntiwx609[address] [place], [place] [address]Dr. Areli Yousif PTTon 12-17-2022 aPTT Coag (Bld) [Time] 27.3 s Normal 22.3-36.2 [facility] Comment on above: Performed By: #### P T, PTT ####[facility] Kgoabxfmsr319[address] [place], [place] [address]Dr. Areli Yousif XR CHEST 1 Von 12-17-2022 XR CHEST 1 V Normal [facility] XR HIP LT 2 3V W PELVISon XR HIP LT 2 3V W PELVIS Normal [facility] GLYCOHEMOGLOBIN A1Con 2022 ADA RECOMMENDATION SEE BELOW Normal [facility] Comment on above: Result Comment: ADA RECOMMENDED LIMIT 4.0 - 6.0 ADA THERAPEUTIC TARGET < 7.0 ACTION SUGGESTED > 7.0 Performed By: #### A 1C ####[facility] Ruizkfjgey69[address] [place], [place] [address]Dr. Areli Yousif Glucose [Mass/Vol] 186 mg/dL Normal [facility] Comment on above: Performed By: #### A 1C ####[facility] Sesakfhhoz96[address] [place], [place] [address]DrDenae Yousif HbA1c (Bld) [Mass fraction] 8.1 % Critically high 4.5-6.2 [facility] Comment on above: Performed By: #### A 1C ####[facility] Yfkqgbrxze120[address] [place], [place] [address]Dr. Areli Yousif CBC AUTO DIFFon 11-24-2022 BASO # 0.0 103/ul Normal 0.0-0.1 [facility] Comment on above: Performed By: #### C BC ####[facility] Otikguldgv88[address] [place], [place] [address]Dr. Areli Benja Basophils/100 WBC (Bld) 0.1 % Critically low 0.2-2.0 [facility] Comment on above: Performed By: #### C BC ####[facility] Griqikpzuz065[address] [place], [place] [address]Dr. Areli Benja EO # 0.0 103/ul Normal 0.0-0.7 [facility] Comment on above: Performed By: #### C BC ####[facility] Fuaseezvxq405[address] [place], [place] [address]Dr. Tabbytulio Yousif Eosinophils/100 WBC (Bld) 0.0 % Critically low 0.9-7.0 [facility] Comment on above: Performed By: #### C BC ####[facility] Vbofcwveee010[address] [place], [place] [address]Dr. Areli Yousif Erythrocyte distribution width (RBC) [Ratio] 12.8 % Normal 11.0-15.0 [facility] Comment on above: Performed By: #### C BC ####[facility] Jzrmvtodpi9[address] [place], [place] [address]Dr. Areli Yousif Hematocrit (Bld) [Volume fraction] 32.3 % Critically low 42.0-54.0 [facility] Comment on above: Performed By: #### C BC ####[facility] Qfocouwtgc27[address] [place], [place] [address]Dr. Tabbytulio Benja Hemoglobin (Bld) [Mass/Vol] 10.5 g/dL Critically low 14.0-18.0 [facility] Comment on above: Performed By: #### C BC ####[facility] Rltwbolwrg9852 [place] [address]Dr. Areli Yousif IG # 0.03 10e3/ul Normal 0.00-0.03 [facility] Comment on above: Performed By: #### C BC ####[facility] Fjwylquurp5027 [place] [address]Dr. Areli Benja IG % 0.4 % Normal 0.0-0.5 [facility] Comment on above: Performed By: #### C BC ####[facility] Shshlladzl[address] [place], [place] [address]Dr. Tabbytulio Yousif LYMPH # 1.3 103/ul Normal 1.2-3.8 [facility] Comment on above: Performed By: #### C BC ####[facility] Wrgyajqjbn215[address] [place], [place] [address]Dr. Tabbytulio Yousif Lymphocytes/100 WBC (Bld) 15.7 % Critically low 20.5-60.0 [facility] Comment on above: Performed By: #### C BC ####[facility] Foekzpblqf40[address] [place], [place] [address]Dr. Tabbytulio Yousif MANUAL DIFF REQ NO Normal [facility] Comment on above: Performed By: #### C BC ####[facility] Tuzvoyswyh84[address] [place], [place] [address]DrDenae Areli Yousif MCH (RBC) [Entitic mass] 28.5 pg Normal 25.9-34.0 [facility] Comment on above: Performed By: #### C BC ####[facility] Aokbzlkumb[address] [place], [place] [address]DrDenae Areli Benja MCHC (RBC) [Mass/Vol] 32.5 g/dL Normal 29.9-35.2 [facility] Comment on above: Performed By: #### C BC ####[facility] Rlcndgmezm64[address] [place], [place] [address]DrDenae Areli Benja MCV (RBC) [Entitic vol] 87.5 fL Normal 80.0-94.0 [facility] Comment on above: Performed By: #### C BC ####[facility] Jbmrvhkmkh822[address] [place], [place] [address]Dr. Areli Yousif MONO # 0.2 103/ul Critically low 0.3-0.8 [facility] Comment on above: Performed By: #### C BC ####[facility] Pjdfnxzqfz8352 [place] [id number]. Areli Yousif Monocytes/100 WBC (Bld) 2.9 % Normal 1.7-12.0 [facility] Comment on above: Performed By: #### C BC ####[facility] Oxoiqekvxz6318 [place] [id number]. Areli Yousif NEUT # 6.4 103/ul Normal 1.4-6.5 [facility] Comment on above: Performed By: #### C BC ####[facility] Wycxxaozxh4296 [place] [address]Dr. Areli Yousif Neutrophils/100 WBC (Bld) 80.9 % Critically high 43.0-75.0 [facility] Comment on above: Performed By: #### C BC ####[facility] Dmvvrghulc7292 [place] [id number]. Areli Yousif Platelet mean volume (Bld) [Entitic vol] 10.3 fL Normal 9.5-13.5 [facility] Comment on above: Performed By: #### C BC ####[facility] Damrlegmtf8629 [place] [id number]. Areli Yousif PLT 315 103/ul Normal 150-450 [facility] Comment on above: Performed By: #### C BC ####[facility] Aqxfxuejnf4040 [place] [id number]. Areli Yousif RBC 3.69 106/ul Critically low 4.70-6.[address] [facility] Comment on above: Performed By: #### C BC ####[facility] Xydyxzagxo8160 [place] [id number]. Areli Yousif WBC 8.0 103/ul Normal 4.0-11.0 [facility] Comment on above: Performed By: #### C BC ####[facility] Eimbikjuwg7455 [place] [id number]. Areli Yousif POINT OF CARE GLUCOSEon 11-06 0 Glucose [Mass/Vol] 386 mg/dL Critically high 74-106 [facility] Comment on above: Performed By: #### P OCGLUC ####[facility] Jryaxxfqri4242 [place] [address]Dr. Areli Yousif Glucose [Mass/Vol] 246 mg/dL Critically high 74-106 [facility] Comment on above: Performed By: #### P OCGLUC ####[facility] Qzihjggycz49[address] [place], [place] [address]Dr. Areli Yousif PROF 14(COMP METB)on 023 Albumin [Mass/Vol] 2.4 g/dL Critically low 3.4-5.0 [facility] Comment on above: Performed By: #### C MP ####[facility] Eebradtfos23[address] [place], [place] [address]Dr. Areli Yousif Albumin/Globulin [Mass ratio] 0.7 {ratio} Normal [facility] Comment on above: Performed By: #### C MP ####[facility] Nncxgumkqj334[address] [place], [place] [address]Dr. Areli Yousif ALP [Catalytic activity/Vol] 71 U/L Normal 46-116 [facility] Comment on above: Performed By: #### C MP ####[facility] Zlzsozagbr125[address] [place], [place] [address]Dr. Areli Yousif ALT [Catalytic activity/Vol] 20 U/L Normal 16-63 [facility] Comment on above: Performed By: #### C MP ####[facility] Mldpknsdet94[address] [place], [place] [address]Dr. Areli Yousif Anion gap [Moles/Vol] 14.2 mmol/L Normal [facility] Comment on above: Performed By: #### C MP ####[facility] Zzbbnxeexk[address] [place], [place] [address]Dr. Areli Yousif AST [Catalytic activity/Vol] 12 U/L Critically low 15-37 [facility] Comment on above: Performed By: #### C MP ####[facility] Tibpjjhvmj16[address] [place], [place] [address]Dr. Areli Yousif Bilirubin [Mass/Vol] 0.2 mg/dL Normal 0.2-1.0 [facility] Comment on above: Performed By: #### C MP ####[facility] Wdgcrkmilb29[address] [place], [place] [address]Dr. Areli Yousif Calcium [Mass/Vol] 8.8 mg/dL Normal 8.5-10.1 [facility] Comment on above: Performed By: #### C MP ####[facility] Wdkoebsnnu429[address] [place], [place] [address]Dr. Areli Yousif Chloride [Moles/Vol] 102 mmol/L Normal 98-107 [facility] Comment on above: Performed By: #### C MP ####[facility] Qktjqcdrxv028[address] [place], [place] [address]Dr. Areli Yousif CO2 [Moles/Vol] 25.6 mmol/L Normal 21.0-32.0 [facility] Comment on above: Performed By: #### C MP ####[facility] Ityyajmcrw96[address] [place], [place] [address]Dr. Areli Yousif Creatinine [Mass/Vol] 0.98 mg/dL Normal 0.70-1.30 [facility] Comment on above: Performed By: #### C MP ####[facility] Dawzbykwsy29[address] [place], [place] [address]Dr. Tabbytulio Benja EGFR-AF MONEGASQUE >60 Normal >=60 [facility] Comment on above: Performed By: #### C MP ####[facility] Nvqwgnsdpo418[address] [place], [place] [address]Dr. Tabbytulio Benja EGFR-NON AF MONEGASQUE >60 Normal >=60 [facility] Comment on above: Performed By: #### C MP ####[facility] Hgqyjvwiyh10[address] [place], [place] [address]Dr. Areli Yousif Globulin (S) [Mass/Vol] 3.6 g/dL Normal [facility] Comment on above: Performed By: #### C MP ####[facility] Vuvxypqjuy58[address] [place], [place] [address]Dr. Areli Yousif Glucose [Mass/Vol] 236 mg/dL Critically high 74-106 [facility] Comment on above: Performed By: #### C MP ####[facility] Tkpciihbfw9482 [place] [address]Dr. Areli Yousif Potassium [Moles/Vol] 3.8 mmol/L Normal 3.5-5.1 [facility] Comment on above: Performed By: #### C MP ####[facility] Jgdarzzmtl[address] [place], [place] [address]Dr. Areli Yousif Protein [Mass/Vol] 6.0 g/dL Critically low 6.4-8.2 [facility] Comment on above: Performed By: #### C MP ####[facility] Wyyuavvfeh[address] [place], [place] [address]Dr. Areli Yousif Sodium [Moles/Vol] 138 mmol/L Normal 136-145 [facility] Comment on above: Performed By: #### C MP ####[facility] [address]jvlihnm[address] [place], [place] [address]Dr. Areli Yousif Urea nitrogen [Mass/Vol] 29.0 mg/dL Critically high 7.0-18.0 [facility] Comment on above: Performed By: #### C MP ####[facility] Ynamyufvkl[address] [place], [place] [address]Dr. Areli Yousif Urea nitrogen/Creatinine [Mass ratio] 29.6 mg/mg Normal [facility] Comment on above: Performed By: #### C MP ####[facility] Fkxbderoha17[address] [place], [place] [address]Dr. Areli Yousif CBC AUTO DIFFon 11-23-2022 BASO # 0.0 103/ul Normal 0.0-0.1 [facility] Comment on above: Performed By: #### C BC ####[facility] Qfklsjlobi[address] [place], [place] [address]Dr. Areli Yousif Basophils/100 WBC (Bld) 0.1 % Critically low 0.2-2.0 [facility] Comment on above: Performed By: #### C BC ####[facility] Qyxqfmzgxx27[address] [place], [place] [address]Dr. Areli Yousif EO # 0.0 103/ul Normal 0.0-0.7 [facility] Comment on above: Performed By: #### C BC ####[facility] Uwzdoztrvt33[address] [place] [address]Dr. Areli Yousif Eosinophils/100 WBC (Bld) 0.0 % Critically low 0.9-7.0 [facility] Comment on above: Performed By: #### C BC ####[facility] Hazojspzse7621 [place] [address]Dr. Areli Yousif Erythrocyte distribution width (RBC) [Ratio] 13.2 % Normal 11.0-15.0 [facility] Comment on above: Performed By: #### C BC ####[facility] Xvtpcbqdpg9729 [place] [address]Dr. Areli Yousif Hematocrit (Bld) [Volume fraction] 31.2 % Critically low 42.0-54.0 [facility] Comment on above: Performed By: #### C BC ####[facility] Gbmkxtfvnq3769 [place] [address]Dr. Areli Yousif Hemoglobin (Bld) [Mass/Vol] 10.0 g/dL Critically low 14.0-18.0 [facility] Comment on above: Performed By: #### C BC ####[facility] Jjdosjxtvo3586 [place] [address]Dr. Areli Yousif IG # 0.06 10e3/ul Critically high 0.00-0.03 [facility] Comment on above: Performed By: #### C BC ####[facility] Lhamyvigpx1162 [place] [address]Dr. Tabbytulio Yousif IG % 0.5 % Normal 0.0-0.5 [facility] Comment on above: Performed By: #### C BC ####[facility] Qglugomwmc4205 [place] [address]Dr. Areli Yousif LYMPH # 2.1 103/ul Normal 1.2-3.8 [facility] Comment on above: Performed By: #### C BC ####[facility] Iywtyhqrsk8286 [place] [address]Dr. Areli Yousif Lymphocytes/100 WBC (Bld) 16.9 % Critically low 20.5-60.0 [facility] Comment on above: Performed By: #### C BC ####[facility] Yvmclzmakp3141 [place] [address]Dr. Areli Benja MANUAL DIFF REQ NO Normal [facility] Comment on above: Performed By: #### C BC ####[facility] Xrcitgntio4553 [place] [address]Dr. Areli Benja MCH (RBC) [Entitic mass] 28.7 pg Normal 25.9-34.0 [facility] Comment on above: Performed By: #### C BC ####[facility] Dizhqtwgqc717[address] [place], [place] [address]Dr. Areli Benja MCHC (RBC) [Mass/Vol] 32.1 g/dL Normal 29.9-35.2 [facility] Comment on above: Performed By: #### C BC ####[facility] Puguvlluzt025[address] [place], [place] [address]Dr. Areli Benja MCV (RBC) [Entitic vol] 89.7 fL Normal 80.0-94.0 [facility] Comment on above: Performed By: #### C BC ####[facility] Kefbzfhdhs13[address] [place], [place] [address]Dr. Areli Benja MONO # 0.5 103/ul Normal 0.3-0.8 [facility] Comment on above: Performed By: #### C BC ####[facility] Gbnpqvnvei3865 [place] [address]Dr. Areli Benja Monocytes/100 WBC (Bld) 3.9 % Normal 1.7-12.0 [facility] Comment on above: Performed By: #### C BC ####[facility] Urqqjdklsv774[address] [place], [place] [address]Dr. Tabbytulio Benja NEUT # 9.9 103/ul Critically high 1.4-6.[address] [facility] Comment on above: Performed By: #### C BC ####[facility] Bqwogxgbtp5543 [place] [id number]. Areli Yousif Neutrophils/100 WBC (Bld) 78.6 % Critically high 43.0-75.0 [facility] Comment on above: Performed By: #### C BC ####[facility] Cjjzciloqr9279 [place] [id number]. Areli Yousif Platelet mean volume (Bld) [Entitic vol] 10.1 fL Normal 9.5-13.5 [facility] Comment on above: Performed By: #### C BC ####[facility] Iiokkrxxsf7875 [place] [id number]. Areli Yousif PLT 289 103/ul Normal 150-450 [facility] Comment on above: Performed By: #### C BC ####[facility] Qnepkjxtjc3058 [place] [address]Dr. Areli Yousif RBC 3.48 106/ul Critically low 4.70-6.[address] [facility] Comment on above: Performed By: #### C BC ####[facility] Ocrbnlzgxo1743 [place] [id number]. Areli Yousif WBC 12.6 103/ul Critically high 4.0-11.0 [facility] Comment on above: Performed By: #### C BC ####[facility] Xsgahwcbpt0023 [place] [id number]. Areli Yousif POINT OF CARE GLUCOSEon 11-05 Glucose [Mass/Vol] 277 mg/dL Critically high 74-106 [facility] Comment on above: Performed By: #### P OCGLUC ####[facility] Cjbymbkxca9844 [place] [id number]. Areli Yousif Glucose [Mass/Vol] 355 mg/dL Critically high 74-106 [facility] Comment on above: Performed By: #### P OCGLUC ####[facility] Lsxbeajkrm3868 [place] [id number]. Areli Yousif Glucose [Mass/Vol] 252 mg/dL Critically high 74-106 [facility] Comment on above: Performed By: #### P OCGLUC ####[facility] Jghnatmgnu999[address] [place], [place] [address]Dr. Areli Yousif PROF 14(COMP METB)on 023 Albumin [Mass/Vol] 2.3 g/dL Critically low 3.4-5.0 [facility] Comment on above: Performed By: #### C MP ####[facility] Bvskponerd209[address] [place], [place] [address]Dr. Areli Yousif Albumin/Globulin [Mass ratio] 0.7 {ratio} Normal [facility] Comment on above: Performed By: #### C MP ####[facility] Iwjjsmuuoc0987[address] [place], [place] [address]Dr. Areli Yousif ALP [Catalytic activity/Vol] 69 U/L Normal 46-116 [facility] Comment on above: Performed By: #### C MP ####[facility] Nymogovnbw038[address] [place], [place] [address]Dr. Areli Yousif ALT [Catalytic activity/Vol] 17 U/L Normal 16-63 [facility] Comment on above: Performed By: #### C MP ####[facility] Ziamyytplp619[address] [place], [place] [address]Dr. Areli Yousif Anion gap [Moles/Vol] 13.8 mmol/L Normal [facility] Comment on above: Performed By: #### C MP ####[facility] Igfbxpwkxk6109[address] [place], [place] [address]Dr. Areli Yousif AST [Catalytic activity/Vol] 13 U/L Critically low 15-37 [facility] Comment on above: Performed By: #### C MP ####[facility] Yqnbjkijqg901[address] [place], [place] [address]Dr. Areli Yousif Bilirubin [Mass/Vol] 0.2 mg/dL Normal 0.2-1.0 [facility] Comment on above: Performed By: #### C MP ####[facility] Mmjjjoxwul087[address] [place], [place] [address]Dr. Areli Yousif Calcium [Mass/Vol] 8.7 mg/dL Normal 8.5-10.1 [facility] [place] Comment on above: Performed By: #### C MP ####[facility] Wownqvoiod2275 [place] [id number]. Areli Benja Chloride [Moles/Vol] 105 mmol/L Normal 98-107 [facility] Comment on above: Performed By: #### C MP ####[facility] Gmphogorts7637 [place] [address]Dr. Areli Yousif CO2 [Moles/Vol] 24.8 mmol/L Normal 21.0-32.0 [facility] Comment on above: Performed By: #### C MP ####[facility] Uqfnwtdsjt7951 [place] [address]Dr. Tabbytulio Yousif Creatinine [Mass/Vol] 1.05 mg/dL Normal 0.70-1.30 [facility] Comment on above: Performed By: #### C MP ####[facility] Shzhslkkzi7599 [place] [address]Dr. Tabbytulio Benja EGFR-AF MONEGASQUE >60 Normal >=60 [facility] Comment on above: Performed By: #### C MP ####[facility] Tualuvjibo8685 [place] [address]Dr. Areli Benja EGFR-NON AF MONEGASQUE >60 Normal >=60 [facility] Comment on above: Performed By: #### C MP ####[facility] Jmtszqjyui7036 [place] [address]Dr. Areli Yousif Globulin (S) [Mass/Vol] 3.5 g/dL Normal [facility] Comment on above: Performed By: #### C MP ####[facility] Vzdlxyvszh2936 [place] [address]Dr. Areli Yousif Glucose [Mass/Vol] 215 mg/dL Critically high 74-106 [facility] Comment on above: Performed By: #### C MP ####[facility] Vwspmxmowz5055[address] [place], [place] [address]Dr. Areli Yousif Potassium [Moles/Vol] 3.6 mmol/L Normal 3.5-5.1 [facility] Comment on above: Performed By: #### C MP ####[facility] Gowiffakac62[address] [place], [place] [address]Dr. Areli Yousif Protein [Mass/Vol] 5.8 g/dL Critically low 6.4-8.2 [facility] Comment on above: Performed By: #### C MP ####[facility] Eqraadcdjb2668[address] [place], [place] [address]Dr. Areli Yousif Sodium [Moles/Vol] 140 mmol/L Normal 136-145 [facility] [place] Comment on above: Performed By: #### C MP ####[facility] Qshaufpzlm8616[address] [place], [place] [address]Dr. Areli Yousif Urea nitrogen [Mass/Vol] 31.0 mg/dL Critically high 7.0-18.0 [facility] Comment on above: Performed By: #### C MP ####[facility] Jngldvwtby8924[address] [place], [place] [address]Dr. Areli Yousif Urea nitrogen/Creatinine [Mass ratio] 29.5 mg/mg Normal [facility] Comment on above: Performed By: #### C MP ####[facility] Daeebdbgwb94[address] [place], [place] [address]Dr. Areli Yousif CBC AUTO DIFFon 11-22-2022 BASO # 0.0 103/ul Normal 0.0-0.1 [facility] Comment on above: Performed By: #### C BC ####[facility] Zimgnkfpld6922[address] [place], [place] [address]Dr. Areli Benja Basophils/100 WBC (Bld) 0.1 % Critically low 0.2-2.0 [facility] Comment on above: Performed By: #### C BC ####[facility] Tdmoirqksz0044[address] [place], [place] [address]Dr. Areli Yousif EO # 0.0 103/ul Normal 0.0-0.7 [facility] Comment on above: Performed By: #### C BC ####[facility] Mcxzmzfpvu615[address] [place], [place] [address]Dr. Areli Benja Eosinophils/100 WBC (Bld) 0.1 % Critically low 0.9-7.0 [facility] Comment on above: Performed By: #### C BC ####[facility] Ouebolbswa9594 [place] [address]Dr. Areli Yousif Erythrocyte distribution width (RBC) [Ratio] 13.2 % Normal 11.0-15.0 [facility] Comment on above: Performed By: #### C BC ####[facility] Sskbazyuqq2966 [place] [address]Dr. Areli Yousif Hematocrit (Bld) [Volume fraction] 31.1 % Critically low 42.0-54.0 [facility] Comment on above: Performed By: #### C BC ####[facility] Asjoscrrng544[address] [place], [place] [address]Dr. Tabbytulio Yousif Hemoglobin (Bld) [Mass/Vol] 10.0 g/dL Critically low 14.0-18.0 [facility] Comment on above: Performed By: #### C BC ####[facility] Icuhgpgczc713[address] [place], [place] [address]Dr. Areli Yousif IG # 0.07 10e3/ul Critically high 0.00-0.03 [facility] Comment on above: Performed By: #### C BC ####[facility] Zwdiunrvbn0799[address] [place], [place] [address]Dr. Tabbytulio Yousif IG % 0.5 % Normal 0.0-0.5 [facility] Comment on above: Performed By: #### C BC ####[facility] Iwqryhfeao[address] [place], [place] [address]Dr. Areli Yousif LYMPH # 1.3 103/ul Normal 1.2-3.8 [facility] Comment on above: Performed By: #### C BC ####[facility] Zauwbatwbo[address] [place], [place] [address]Dr. Areli Yousif Lymphocytes/100 WBC (Bld) 9.7 % Critically low 20.5-60.0 [facility] Comment on above: Performed By: #### C BC ####[facility] Wetzbzsdpv439[address] [place], [place] [address]Dr. Areli Yousif MANUAL DIFF REQ NO Normal [facility] Comment on above: Performed By: #### C BC ####[facility] [address]ytzesiqz[address] [place] [address]Mg. Areli Yousif MCH (RBC) [Entitic mass] 29.1 pg Normal 25.9-34.0 [facility] Comment on above: Performed By: #### C BC ####[facility] Kptlthqqsq0875 [place] [address]Dr. Areli Yousif MCHC (RBC) [Mass/Vol] 32.2 g/dL Normal 29.9-35.2 [facility] Comment on above: Performed By: #### C BC ####[facility] Bbaneysopo837[address] [place], [place] [address]Dr. Areli Yousif MCV (RBC) [Entitic vol] 90.4 fL Normal 80.0-94.0 [facility] Comment on above: Performed By: #### C BC ####[facility] Ujydudkrjj320[address] [place], [place] [address]Dr. Areli Yousif MONO # 0.4 103/ul Normal 0.3-0.8 [facility] Comment on above: Performed By: #### C BC ####[facility] Zgrvttvasy890[address] [place], [place] [address]Dr. Areli Yousif Monocytes/100 WBC (Bld) 2.9 % Normal 1.7-12.0 [facility] Comment on above: Performed By: #### C BC ####[facility] Csqkofayjh267[address] [place], [place] [address]Dr. Areli Yousif NEUT # 11.7 103/ul Critically high 1.4-6.5 [facility] Comment on above: Performed By: #### C BC ####[facility] Ormjlbpoma84[address] [place], [place] [address]Dr. Areli Benja Neutrophils/100 WBC (Bld) 86.7 % Critically high 43.0-75.0 [facility] Comment on above: Performed By: #### C BC ####[facility] Hzdbzfwwhj415[address] [place], [place] [address]Dr. Areli Yousif Platelet mean volume (Bld) [Entitic vol] 10.4 fL Normal 9.5-13.5 [facility] Comment on above: Performed By: #### C BC ####[facility] Snjiokvugv1115 [place], [place] [address]Mh. Areli Yousif PLT 263 103/ul Normal 150-450 [facility] Comment on above: Performed By: #### C BC ####[facility] Hqtqzzzpdn1282 [place], [place] [address]An. Areli Yousif RBC 3.44 106/ul Critically low 4.70-6.10 [facility] Comment on above: Performed By: #### C BC ####[facility] Xgjescujed7383 [place], [place] [address]Do. Areli Yousif WBC 13.5 103/ul Critically high 4.0-11.0 [facility] Comment on above: Performed By: #### C BC ####[facility] Nivuzsgwig4440 [place] [id number]. Areli Yousif POINT OF CARE GLUCOSEon 11-05 Glucose [Mass/Vol] 239 mg/dL Critically high 74-106 [facility] Comment on above: Performed By: #### P OCGLUC ####[facility] Qqywrtzpxx0109 [place] [id number]. Areli Yousif Glucose [Mass/Vol] 242 mg/dL Critically high 74-106 [facility] Comment on above: Performed By: #### P OCGLUC ####[facility] Felzcaokmu8274 [place] [phone]. Areli Yousif Glucose [Mass/Vol] 231 mg/dL Critically high 74-106 [facility] Comment on above: Performed By: #### P OCGLUC ####[facility] Ebrpeihutt1400 [place] [id number]. Areli Yousif Glucose [Mass/Vol] 203 mg/dL Critically high 74-106 [facility] Comment on above: Performed By: #### P OCGLUC ####[facility] Brvrqdxpma1610 [place] [address]Dr. Areli Yousif PROF 14(COMP METB)on 023 Albumin [Mass/Vol] 2.2 g/dL Critically low 3.4-5.0 [facility] Comment on above: Performed By: #### C MP ####[facility] Epsnkfcmnf1721 [place] [address]Dr. Areli Yousif Albumin/Globulin [Mass ratio] 0.6 {ratio} Normal [facility] Comment on above: Performed By: #### C MP ####[facility] Hhdzzatfqy4787 [place] [id number]. Areli Yousif ALP [Catalytic activity/Vol] 76 U/L Normal 46-116 [facility] Comment on above: Performed By: #### C MP ####[facility] Govubnnkqj3510 [place] [address]Dr. Areli Yousif ALT [Catalytic activity/Vol] 20 U/L Normal 16-63 [facility] Comment on above: Performed By: #### C MP ####[facility] Fuwwmphbdx4595 [place] [address]Dr. Areli Yousif Anion gap [Moles/Vol] 13.9 mmol/L Normal [facility] Comment on above: Performed By: #### C MP ####[facility] Mcklxgxrct46[address] [place], [place] [address]Dr. Areli Yousif AST [Catalytic activity/Vol] 14 U/L Critically low 15-37 [facility] Comment on above: Performed By: #### C MP ####[facility] Wuqyxfqxca6920[address] [place], [place] [address]Dr. Areli Yousif Bilirubin [Mass/Vol] 0.2 mg/dL Normal 0.2-1.0 [facility] Comment on above: Performed By: #### C MP ####[facility] Kpnecwjghv70[address] [place], [place] [address]Dr. Areli Yousif Calcium [Mass/Vol] 8.6 mg/dL Normal 8.5-10.1 [facility] [place] Comment on above: Performed By: #### C MP ####[facility] Vutoioqbul912[address] [place], [place] [address]Dr. Areli Yousif Chloride [Moles/Vol] 106 mmol/L Normal 98-107 [facility] Comment on above: Performed By: #### C MP ####[facility] Bmdsxxjxqc6232 [place] [id number]. Areli Yousif CO2 [Moles/Vol] 24.3 mmol/L Normal 21.0-32.0 [facility] Comment on above: Performed By: #### C MP ####[facility] Hxzmbmwcyu7426 [place] [id number]. Areli Yousif Creatinine [Mass/Vol] 1.24 mg/dL Normal 0.70-1.30 [facility] Comment on above: Performed By: #### C MP ####[facility] Sfdidgjaxj1789 [place] [id number]. Areli Yousif EGFR-AF MONEGASQUE >60 Normal >=60 [facility] Comment on above: Performed By: #### C MP ####[facility] Nuuzmspszj5845 [place] [address]Dr. Areli Benja EGFR-NON AF MONEGASQUE 58 mL/min/1.73m2 Critically low >=60 [facility] Comment on above: Performed By: #### C MP ####[facility] Wmkfzpdcbi8[address] [place], [place] [address]Dr. Areli Yousif Globulin (S) [Mass/Vol] 3.6 g/dL Normal [facility] Comment on above: Performed By: #### C MP ####[facility] Fbfmcedgsv8609 [place] [address]Dr. Areli Yousif Glucose [Mass/Vol] 208 mg/dL Critically high 74-106 [facility] Comment on above: Performed By: #### C MP ####[facility] Bchozpbras0916 [place] [address]Dr. Areli Yousif Potassium [Moles/Vol] 4.2 mmol/L Normal 3.5-5.1 [facility] Comment on above: Performed By: #### C MP ####[facility] Solnzpdqkf8755 [place] [address]Dr. Areli Yousif Protein [Mass/Vol] 5.8 g/dL Critically low 6.4-8.2 [facility] Comment on above: Performed By: #### C MP ####[facility] Uisfemugcx6850 [place] [phone]. Areli Yousif Sodium [Moles/Vol] 140 mmol/L Normal 136-145 [facility] Comment on above: Performed By: #### C MP ####[facility] Gadwcaaghs5668 [place] [phone]. Areli Yousif Urea nitrogen [Mass/Vol] 33.0 mg/dL Critically high 7.0-18.0 [facility] Comment on above: Performed By: #### C MP ####[facility] Qhwlxsoguz2295 [place] [address]Dr. Areli Yousif Urea nitrogen/Creatinine [Mass ratio] 26.6 mg/mg Normal [facility] Comment on above: Performed By: #### C MP ####[facility] Uilfbxwctb5341 [place] [address]Dr. Areli Yousif XR CHEST 1 Von 11-22-2022 XR CHEST 1 V Normal [facility] CBC AUTO DIFFon 11-21-2022 BASO # 0.0 103/ul Normal 0.0-0.1 [facility] Comment on above: Performed By: #### C BC ####[facility] Fizutxdtch69[address] [place], [place] [address]Dr. Areli Benja Basophils/100 WBC (Bld) 0.2 % Normal 0.2-2.0 [facility] Comment on above: Performed By: #### C BC ####[facility] Nafxxemogk2110[address] [place], [place] [address]Dr. Areli Benja EO # 1.7 103/ul Critically high 0.0-0.[address] [facility] Comment on above: Performed By: #### C BC ####[facility] Bbjyesflai9622 [place] [address]Dr. Areli Benja Eosinophils/100 WBC (Bld) 10.2 % Critically high 0.9-7.0 [facility] Comment on above: Performed By: #### C BC ####[facility] Sssfakumcz[address] [place], [place] [id number]. Areli Benja Erythrocyte distribution width (RBC) [Ratio] 13.3 % Normal 11.0-15.0 [facility] Comment on above: Performed By: #### C BC ####[facility] Alieijqxac1567 [place] [address]DrDenae Yousif Hematocrit (Bld) [Volume fraction] 31.3 % Critically low 42.0-54.0 [facility] Comment on above: Performed By: #### C BC ####[facility] Wwqhwnnlve1029 [place] [address]DrDenae Yousif Hemoglobin (Bld) [Mass/Vol] 10.4 g/dL Critically low 14.0-18.0 [facility] Comment on above: Performed By: #### C BC ####[facility] Vcxpgichwb920[address] [place], [place] [address]DrDenae Yousif IG # 0.14 10e3/ul Critically high 0.00-0.03 [facility] Comment on above: Performed By: #### C BC ####[facility] Sbwphjmyzy3887[address] [place], [place] [address]DrDenae Yousif IG % 0.9 % Critically high 0.0-0.5 [facility] Comment on above: Performed By: #### C BC ####[facility] Jpdcfdcyuz414[address] [place], [place] [address]DrDenae Yousif LYMPH # 1.8 103/ul Normal 1.2-3.8 [facility] Comment on above: Performed By: #### C BC ####[facility] Cvatcvntso3610[address] [place], [place] [address]DrDenae Yousif Lymphocytes/100 WBC (Bld) 11.0 % Critically low 20.5-60.0 [facility] Comment on above: Performed By: #### C BC ####[facility] Qzseusfktf7979[address] [place], [place] [address]DrDenae Yousif MANUAL DIFF REQ NO Normal [facility] Comment on above: Performed By: #### C BC ####[facility] Ahntbtowsq8768[address] [place], [place] [address]DrDenae Yousif MCH (RBC) [Entitic mass] 29.5 pg Normal 25.9-34.0 [facility] Comment on above: Performed By: #### C BC ####[facility] Bcefzzxixi8052 [place] [address]DrDenae Yousif MCHC (RBC) [Mass/Vol] 33.2 g/dL Normal 29.9-35.2 [facility] Comment on above: Performed By: #### C BC ####[facility] Psfooujqhj2813 [place] [address]DrDenae Yousif MCV (RBC) [Entitic vol] 88.9 fL Normal 80.0-94.0 [facility] Comment on above: Performed By: #### C BC ####[facility] Ntetbtvkoc23[address] [place], [place] [address]DrDenae Yousif MONO # 0.9 103/ul Critically high 0.3-0.[address] [facility] Comment on above: Performed By: #### C BC ####[facility] Ykvwtbecta7538[address] [place], [place] [address]DrDenae Yousif Monocytes/100 WBC (Bld) 5.4 % Normal 1.7-12.0 [facility] Comment on above: Performed By: #### C BC ####[facility] Vmsvydjoig79[address] [place], [place] [address]DrDenae Yousif NEUT # 11.8 103/ul Critically high 1.4-6.5 [facility] Comment on above: Performed By: #### C BC ####[facility] Kcvltpacqc17[address] [place], [place] [address]DrDenae Yousif Neutrophils/100 WBC (Bld) 72.3 % Normal 43.0-75.0 [facility] Comment on above: Performed By: #### C BC ####[facility] Lwwctvjvyt[address] [place], [place] [address]DrDenae Yousif Platelet mean volume (Bld) [Entitic vol] 10.4 fL Normal 9.5-13.5 [facility] Comment on above: Performed By: #### C BC ####[facility] Drlvtdvsbk[address] [place], [place] [address]DrDenae Yousif PLT 215 103/ul Normal 150-450 [facility] Comment on above: Performed By: #### C BC ####[facility] Snnauqdtnd1833 [place] [id number]. Areli Yousif RBC 3.52 106/ul Critically low 4.70-6.10 [facility] Comment on above: Performed By: #### C BC ####[facility] Nndgpwatab1256 [place] [phone]. Areli Yousif WBC 16.3 103/ul Critically high 4.0-11.0 [facility] Comment on above: Performed By: #### C BC ####[facility] Lifgpoqagp2704 [place] [address]Dr. Areli Benja POINT OF CARE GLUCOSEon 11-05 Glucose [Mass/Vol] 274 mg/dL Critically high 74-106 [facility] Comment on above: Performed By: #### P OCGLUC ####[facility] Nhlhrcxhke1506 [place] [address]Dr. Areli Yousif Glucose [Mass/Vol] 197 mg/dL Critically high 74-106 [facility] Comment on above: Performed By: #### P OCGLUC ####[facility] Kcrzvxodzq[address] [place], [place] [address]Dr. Areli Yousif Glucose [Mass/Vol] 135 mg/dL Critically high 74-106 [facility] Comment on above: Performed By: #### P OCGLUC ####[facility] Sfsprkpfkq[address] [place], [place] [address]DrDenae Areli Benja PROF 14(COMP METB)on 023 Albumin [Mass/Vol] 2.1 g/dL Critically low 3.4-5.0 [facility] Comment on above: Performed By: #### C MP ####[facility] Wvswyvfuir[address] [place] [address]Dr. Areli Yousif Albumin/Globulin [Mass ratio] 0.6 {ratio} Normal [facility] Comment on above: Performed By: #### C MP ####[facility] Miqgxbhxhq12[address] [place] [address]Dr. Areli Yousif ALP [Catalytic activity/Vol] 74 U/L Normal 46-116 [facility] Comment on above: Performed By: #### C MP ####[facility] Skuckbujob[address] [place] [address]Dr. Areli Yousif ALT [Catalytic activity/Vol] 23 U/L Normal 16-63 [facility] Comment on above: Performed By: #### C MP ####[facility] Xygkqbiwgs[address] [place], [place] [address]Dr. Areli Benja Anion gap [Moles/Vol] 13.2 mmol/L Normal [facility] Comment on above: Performed By: #### C MP ####[facility] Josgiaaslz[address] [place], [place] [address]Dr. Areli Benja AST [Catalytic activity/Vol] 24 U/L Normal 15-37 [facility] Comment on above: Performed By: #### C MP ####[facility] Dndyjqhyex50[address] [place], [place] [address]Dr. Areli Benja Bilirubin [Mass/Vol] 0.3 mg/dL Normal 0.2-1.0 [facility] Comment on above: Performed By: #### C MP ####[facility] Xbkbmbjadd30[address] [place], [place] [address]Dr. Areli Benja Calcium [Mass/Vol] 8.1 mg/dL Critically low 8.5-10.1 [facility] Comment on above: Performed By: #### C MP ####[facility] Xjofzzzqzn17[address] [place], [place] [address]Dr. Areli Benja Chloride [Moles/Vol] 106 mmol/L Normal 98-107 [facility] Comment on above: Performed By: #### C MP ####[facility] Zowpekdonf24[address] [place], [place] [address]Dr. Tabbytulio Yousif CO2 [Moles/Vol] 22.9 mmol/L Normal 21.0-32.0 [facility] Comment on above: Performed By: #### C MP ####[facility] Hvfxmsmbae[address] [place], [place] [address]Dr. Areli Yousif Creatinine [Mass/Vol] 1.20 mg/dL Normal 0.70-1.30 [facility] Comment on above: Performed By: #### C MP ####[facility] Noersugsgg44[address] [place] [address]Dr. Areli Yousif EGFR-AF MONEGASQUE >60 Normal >=60 [facility] Comment on above: Performed By: #### C MP ####[facility] Ejsywgghyf5341 [place] [id number]. Areli Benja EGFR-NON AF MONEGASQUE >60 Normal >=60 [facility] Comment on above: Performed By: #### C MP ####[facility] Skclaerqwu46[address] [place] [address]Dr. Areli Benja Globulin (S) [Mass/Vol] 3.4 g/dL Normal [facility] Comment on above: Performed By: #### C MP ####[facility] Khwdktgwcm5913 [place] [address]Dr. Areli Benja Glucose [Mass/Vol] 187 mg/dL Critically high 74-106 [facility] Comment on above: Performed By: #### C MP ####[facility] Mxwweojeol2504 [place] [address]Dr. Areli Benja Potassium [Moles/Vol] 4.1 mmol/L Normal 3.5-5.1 [facility] Comment on above: Performed By: #### C MP ####[facility] Gphpdxbkrt6923 [place] [address]Dr. Areli Benja Protein [Mass/Vol] 5.5 g/dL Critically low 6.4-8.2 [facility] Comment on above: Performed By: #### C MP ####[facility] Thbalciopa7149 [place] [address]Dr. Areli Yousif Sodium [Moles/Vol] 138 mmol/L Normal 136-145 [facility] [place] Comment on above: Performed By: #### C MP ####[facility] Sdqmiofloj9604 [place] [address]Dr. Areli Benja Urea nitrogen [Mass/Vol] 24.0 mg/dL Critically high 7.0-18.0 [facility] Comment on above: Performed By: #### C MP ####[facility] Zlfnekbtbf5183 [place] [address]Dr. Areli Yousif Urea nitrogen/Creatinine [Mass ratio] 20.0 mg/mg Normal [facility] Comment on above: Performed By: #### C MP ####[facility] Acwcpvyzsr[address] [place] [address]Dr. Areli Yousif BNPon 11-20-2022 Natriuretic peptide B (Bld) [Mass/Vol] 2097.0 pg/mL Critically high <=900.0 [facility] Comment on above: Performed By: #### C MADM, CMP, BNP ####[facility] Amrposrldj1335 [place] [address]Dr. Areli Yousif CARDIAC ASHLEY ADMITon 023 CK [Catalytic activity/Vol] 50 U/L Normal 39-308 [facility] Comment on above: Performed By: #### C MADM, CMP, BNP ####[facility] Dtfifrzshh5668 [place] [address]Dr. Areli Yousif CK.MB [Mass/Vol] ng/mL Normal <=3.60 [facility] Comment on above: Performed By: #### C MADM, CMP, BNP ####[facility] Idnvgrceoj0[address] [place], [place] [address]Dr. Areli Yousif HSTROP 12.9 pg/mL Normal 4.0-76.1 [facility] Comment on above: Result Comment: CUT- OFF POINTS HAVE BEEN ESTABLISHED BASED ON THE FOURTH UNIVERSAL DEFINITIONS OF MYOCARDIALINFARCTION. THE UPPER REFERENCE LIMIT (URL) OF TROPONIN, DEFINED THE 99TH PERCENTILE OFcTnI DISTRIBUTION IN A REFERENCE POPULATION, HAS BEEN CONFIRMED THE DECISION THRESHOLDFOR [place] DIAGNOSIS. Performed By: #### C MADM, CMP, BNP ####[facility] Vgqnwndswu3437 [place] [address]Dr. Areli Yousif LAWRENCE 128 ng/mL Critically high 16-[address] [facility] Comment on above: Performed By: #### C MADM, CMP, BNP ####[facility] Czjduyzxfp8[address] [place] [address]Dr. Areli Yousif CBC W MANUAL DIFFon 11-20-19 23 ATYPICAL LYMPH # Normal [facility] Comment on above: Performed By: #### C YOLETTE ####[facility] Eirqhlkabr55[address] [place] [address]Dr. Areli Yousif ATYPICAL LYMPH % Normal [facility] Comment on above: Performed By: #### C YOLETTE ####[facility] Nqmfleugtl7[address] [place], [place] [address]Dr. Areli Yousif BAND # 0.5 103/ul Critically high 0.0-0.[address] [facility] Comment on above: Performed By: #### C YOLETTE ####[facility] Tcdbhkcwsu[address] [place], [place] [address]Dr. Areli Yousif BAND % 3 % Normal 0-5 [facility] Comment on above: Performed By: #### C YOLETTE ####[facility] Ipevvgejuo89[address] [place], [place] [address]Dr. Areli Yousif BASOM # 0.00 103/ul Normal 0.00-0.10 [facility] Comment on above: Performed By: #### C YOLETTE ####[facility] Urntxivjrv[address] [place], [place] [address]Dr. Areli Benja BASOM % 0.0 % Critically low 0.2-2.0 [facility] Comment on above: Performed By: #### C YOLETTE ####[facility] Zbnywjrqos42[address] [place], [place] [address]Dr. Areli Oyusif BLAST # Normal [facility] Comment on above: Performed By: #### C YOLETTE ####[facility] Yonmotjdda85[address] [place], [place] [address]Dr. Areli Yousif BLAST % Normal [facility] Comment on above: Performed By: #### C YOLETTE ####[facility] Aqrvbwqmtb7[address] [place] [address]Dr. Areli Yousif CORRECTED WBC Normal 4.0-11.0 [facility] Comment on above: Performed By: #### C YOLETTE ####[facility] Wyasmcxvmu7364 [place], [place] [address]Fn. Areli Yousif EOS # 0.00 103/ul Normal 0.00-0.70 [facility] Comment on above: Performed By: #### C YOLETTE ####[facility] Ttzykkafcb6382 [place], [place] [address]Li. Areli Yousif EOS% 0.0 % Critically low 0.9-7.0 [facility] Comment on above: Performed By: #### C YOLETTE ####[facility] Bpygokdvxg1509 [place], [place] [address]Cr. Areli Yousif HCT 37.7 % Critically low 42.0-54.0 [facility] Comment on above: Performed By: #### C YOLETTE ####[facility] Jeylrwwnlp1885 [place] [id number]. Areli Yousif HGB 12.1 g/dl Critically low 14.0-18.0 [facility] Comment on above: Performed By: #### Reed DE LA VEGA ####[facility] Plqwnhibog8329 [place] [id number]. Areli Yousif LYMPHM # 0.15 103/ul Critically low 1.20-3.[address] [facility] Comment on above: Performed By: #### Reed DE LA VEGA ####[facility] Jfwhpefaqu2127 [place], [place] [address]Qb. Areli Yousif LYMPHM% 1.0 % Critically low 20.5-60.0 [facility] Comment on above: Performed By: #### Reed DE LA [place]GA ####[facility] Obyedhugqi8599 [place] [id number]. Areli Yousif MCH 28.8 pg Normal 25.9-34.0 [facility] Comment on above: Performed By: #### C YOLETTE ####[facility] Rquvmwipvp4898 [place], [place] [address]Oh. Areli Yousif MCHC 32.1 g/dl Normal 29.9-35.2 [facility] Comment on above: Performed By: #### Reed DE LA [place]GA ####[facility] Ujgfjdsagj8601 [place] [id number]. Areli Yousif MCV 89.8 fL Normal 80.0-94.0 [facility] Comment on above: Performed By: #### C BCMAN ####[facility] Qqjgfvnfaj4958 [place] [id number]. Areli Yousif METAMYELOCYTE # Normal [facility] Comment on above: Performed By: #### C YOLETTE ####[facility] Fajmibrzoi6771 [place] [id number]. Areli Yousif METAMYELOCYTE % Normal [facility] Comment on above: Performed By: #### C YOLETTE ####[facility] Ucolsrtiyo6217 [place] [id number]. Areli Yousif MONOM# 1.08 103/ul Critically high 0.30-0.80 [facility] Comment on above: Performed By: #### C YOLETTE ####[facility] Qawuudkevs[address] [place], [place] [address]Dr. Areli Yousif MONOM% 7.0 % Normal 1.7-12.0 [facility] Comment on above: Performed By: #### C YOLETTE ####[facility] Ahwarjlrwc[address] [place], [place] [address]Dr. Areli Yousif MPV 10.2 fL Normal 9.5-13.5 [facility] Comment on above: Performed By: #### C YOLETTE ####[facility] Hjvxtbttmv9827 [place] [id number]. Areli Yousif MYELOCYTE # Normal [facility] Comment on above: Performed By: #### C YOLETTE ####[facility] Npihinwkcb2494 [place] [id number]. Areli Yousif MYELOCYTE % Normal [facility] Comment on above: Performed By: #### C YOLETTE ####[facility] Fnwqqehwig032[address] [place], [place] [address]Dr. Areli Yousif NRBC Normal [facility] Comment on above: Performed By: #### C YOLETTE ####[facility] Dgpvxsyksr7069 [place] [id number]. Areli Benja PLT 268 103/ul Normal 150-450 [facility] Comment on above: Performed By: #### C YOLETTE ####[facility] Znauiaamww5152 [place] [id number]. Areli Yousif RBC 4.20 106/ul Critically low 4.70-6.[address] [facility] Comment on above: Performed By: #### C YOLETTE ####[facility] Fvxrdysiom4198 [place] [id number]. Areli Yousif RDW 13.2 % Normal 11.0-15.0 [facility] Comment on above: Performed By: #### C YOLETTE ####[facility] Rttwxfcbyc0857 [place] [id number]. Areli Yousif SEG # 13.71 103/ul Critically high 1.40-6.50 [facility] Comment on above: Performed By: #### C YOLETTE ####[facility] Lfigozuaxe7405 [place] [id number]. Areli Yousif SEG % 89.0 % Critically high 43.0-75.[address] [facility] Comment on above: Performed By: #### C YOLETTE ####[facility] Uaabncbhts1270 [place] [id number]. Areli Yousif TOXIC GRANULATION 2+ Normal [facility] Comment on above: Performed By: #### C YOLETTE ####[facility] Tkjouddrqc6680 [place] [id number]. Areli Yousif WBC 15.4 103/ul Critically high 4.0-11.0 [facility] Comment on above: Performed By: #### C YOLETTE ####[facility] Azpajfvbtd4706 [place] [id number]. Areli Yousif CULTURE BLOODon 11-20-2022 Microscopic examination of blood, culture Culture Observations: NO GROWTH AT 5 DAYS. Normal [facility] Comment on above: Performed By: #### B LDCX1 ####[facility] Oyrybazhts4070 [place] [id number]. Areli Yousif Performed By: #### B LDCX2 ####[facility] Igyhkxjsqy367[address] [place], [place] [address]Dr. Areli Yousif Covid-19 PCR (CVDTB)on 11-05 SARS-CoV-2 (COVID-19) RNA MANSI+probe Ql (Unsp spec) Detected Abnormal NOT DETECTED [facility] Comment on above: Result Comment: This test is not yet approved or cleared by the [place] FDA. When there are no FDA-approved or cleared tests available, and other criteria are met, FDA can make tests available under an emergency access mechanism called an Emergency Use Authorization (EUA). The EUA for this test is supported by the Manager Of Transportation of Health and Human Service's declaration that [...] be used). Performed By: #### C VDTBH ####[facility] Iefnkzkhrs8[address] [place], [place] [address]Dr. Areli Yousif D-DIMERon 11-20-2022 D-DIMER 0.39 mg/L FEU Normal <=0.59 [facility] Comment on above: Performed By: #### D DIM ####[facility] Lhmgpxlgkn43[address] [place], [place] [address]Dr. Areli Yousif D-DIMER COMMENTS SEE BELOW Normal [facility] Comment on above: Result Comment: Incr [...] generalized hospitalization. Performed By: #### D DIM ####[facility] Etzziabmcc[address] [place], [place] [address]Dr. Areli Yousif LACTATE/LACTIC ACIDon 2022 Lactate [Moles/Vol] 1.6 mmol/L Normal 0.4-1.9 [facility] Comment on above: Performed By: #### L ACT ####[facility] Nmkziykfmk[address] [place] [address]Dr. Areli Yousif PROF 14(COMP METB)on 023 Albumin [Mass/Vol] 2.7 g/dL Critically low 3.4-5.0 [facility] Comment on above: Performed By: #### C MADM, CMP, BNP ####[facility] Hffayyxtab4483 [place] [address]Dr. Areli Yousif Albumin/Globulin [Mass ratio] 0.8 {ratio} Normal [facility] Comment on above: Performed By: #### C MADM, CMP, BNP ####[facility] Wvgebuzufy9158 [place] [address]Dr. Areli Yousif ALP [Catalytic activity/Vol] 91 U/L Normal 46-116 [facility] Comment on above: Performed By: #### C MADM, CMP, BNP ####[facility] Fbsflhslnz8946 [place] [address]Dr. Areli Yousif ALT [Catalytic activity/Vol] 23 U/L Normal 16-63 [facility] Comment on above: Performed By: #### C MADM, CMP, BNP ####[facility] Ejiamwslse6887 [place] [address]Dr. Areli Yousif Anion gap [Moles/Vol] 13.4 mmol/L Normal [facility] Comment on above: Performed By: #### C MADM, CMP, BNP ####[facility] Xnbcympush3131 [place] [address]Dr. Areli Yousif AST [Catalytic activity/Vol] 24 U/L Normal 15-37 [facility] Comment on above: Performed By: #### C MADM, CMP, BNP ####[facility] Hzbbcknbwp5354 [place] [address]Dr. Areli Yousif Bilirubin [Mass/Vol] 0.3 mg/dL Normal 0.2-1.0 [facility] Comment on above: Performed By: #### C MADM, CMP, BNP ####[facility] Atguiiigzu1909 [place] [address]Dr. Areli Yousif Calcium [Mass/Vol] 8.6 mg/dL Normal 8.5-10.1 [facility] [place] Comment on above: Performed By: #### C MADM, CMP, BNP ####[facility] Zbkujczuoj8221 [place] [address]Dr. Areli Yousif Chloride [Moles/Vol] 102 mmol/L Normal 98-107 [facility] Comment on above: Performed By: #### C MADM, CMP, BNP ####[facility] Kivrbuiqrk3334 [place] [address]Dr. Areli Yousif CO2 [Moles/Vol] 24.7 mmol/L Normal 21.0-32.0 [facility] Comment on above: Performed By: #### C MADM, CMP, BNP ####[facility] Djvnhmvflo02[address] [place], [place] [address]Dr. Areli Yousif Creatinine [Mass/Vol] 1.45 mg/dL Critically high 0.70-1.30 [facility] Comment on above: Performed By: #### C MADM, CMP, BNP ####[facility] Fzoyfvissk[address] [place], [place] [address]Dr. Areli Yousif EGFR-AF MONEGASQUE 58 mL/min/1.73m2 Critically low >=60 [facility] Comment on above: Performed By: #### C MADM, CMP, BNP ####[facility] Cuvhdwvddl8989 [place] [address]Dr. Areli Yousif EGFR-NON AF MONEGASQUE 48 mL/min/1.73m2 Critically low >=60 [facility] Comment on above: Performed By: #### C MADM, CMP, BNP ####[facility] Ndyrtolpuv[address] [place], [place] [address]Dr. Areli Yousif Globulin (S) [Mass/Vol] 3.6 g/dL Normal [facility] Comment on above: Performed By: #### C MADM, CMP, BNP ####[facility] Qvfguvobrd1784 [place] [address]Dr. Areli Yousif Glucose [Mass/Vol] 328 mg/dL Critically high 74-106 [facility] Comment on above: Performed By: #### C MADM, CMP, BNP ####[facility] Tatowghjql2705 [place] [address]Dr. Areli Yousif Potassium [Moles/Vol] 4.1 mmol/L Normal 3.5-5.1 [facility] Comment on above: Performed By: #### C MADM, CMP, BNP ####[facility] Wtwdejzyuh3630 [place] [address]Dr. Areli Yousif Protein [Mass/Vol] 6.3 g/dL Critically low 6.4-8.2 [facility] Comment on above: Performed By: #### C MADDebbie, CMP, BNP ####[facility] Sqtxscnnxi8936 [place] [address]Dr. Areli Yousif Sodium [Moles/Vol] 136 mmol/L Normal 136-145 [facility] [place] Comment on above: Performed By: #### C MADM, CMP, BNP ####[facility] Gmgkwbkgfc0278 [place] [address]Dr. Areli Yousif Urea nitrogen [Mass/Vol] 24.0 mg/dL Critically high 7.0-18.0 [facility] Comment on above: Performed By: #### C MADDebbie, CMP, BNP ####[facility] Rdlcmvsspr3636 [place] [address]Dr. Areli Yousif Urea nitrogen/Creatinine [Mass ratio] 16.6 mg/mg Normal [facility] Comment on above: Performed By: #### C MADM, CMP, BNP ####[facility] Xvmoxgobxv5292 [place] [address]Dr. Areli Yousif XR CHEST 1 Von 11-20-2022 XR CHEST 1 V Normal [facility] Outside Recordson 10-27-2022 Outside Records [id number]#1. 00OTGTIFF Normal [facility] Outside Recordson 10-21-2022 Outside Records [id number]#1.0 0OTGTIFF Normal [facility] Outside Records [id number]#1.0 0OTGTIFF Normal [facility] Outside Recordson 10-10-2022 Outside Records [id number]#1. 00OTGTIFF [facility] BNPon 10-08-2022 Natriuretic peptide B (Bld) [Mass/Vol] 508.0 pg/mL Normal <=900.0 [facility] Comment on above: Performed By: #### L IPA, CMADM, BNP, CMP ####[facility] Mtctnbajzk9178 [place] [address]Dr. Areli Yousif CARDIAC ASHLEY ADMITon 023 CK [Catalytic activity/Vol] 40 U/L Normal 39-308 [facility] Comment on above: Performed By: #### L IPA, CMADM, BNP, CMP ####[facility] Zpmjfcfvax6940 [place] [address]Dr. Areli Yousif CK.MB [Mass/Vol] 1.52 ng/mL Normal <=3.60 [facility] Comment on above: Performed By: #### L IPA, CMADM, BNP, CMP ####[facility] Hrmgylnhdc6529 [place] [address]Dr. Areli Yousif HSTROP 12.5 pg/mL Normal 4.0-76.1 [facility] Comment on above: Result Comment: CUT- OFF POINTS HAVE BEEN ESTABLISHED BASED ON THE FOURTH UNIVERSAL DEFINITIONS OF MYOCARDIALINFARCTION. THE UPPER REFERENCE LIMIT (URL) OF TROPONIN, DEFINED THE 99TH PERCENTILE OFcTnI DISTRIBUTION IN A REFERENCE POPULATION, HAS BEEN CONFIRMED THE DECISION THRESHOLDFOR [place] DIAGNOSIS. Performed By: #### L IPA, CMADM, BNP, CMP ####[facility] Xbkpisagol7238 [place] [address]Dr. Areli Yousif LAWRENCE 92 ng/mL Normal 16-96 [facility] Comment on above: Performed By: #### L IPA, CMADM, BNP, CMP ####[facility] Ztagqtaogh9481 [place] [address]Dr. Areli Yousif CBC AUTO DIFFon 10-08-2022 BASO # 0.1 103/ul Normal 0.0-0.1 [facility] Comment on above: Performed By: #### C BC ####[facility] Osppjsjnnz430[address] [place], [place] [address]Dr. Areli Benja Basophils/100 WBC (Bld) 0.5 % Normal 0.2-2.0 [facility] Comment on above: Performed By: #### C BC ####[facility] Hquojfykeb514[address] [place], [place] [address]Dr. Areli Benja EO # 0.4 103/ul Normal 0.0-0.7 [facility] Comment on above: Performed By: #### C BC ####[facility] Wytymqwegq85[address] [place], [place] [address]Dr. Tabbytulio Yousif Eosinophils/100 WBC (Bld) 3.4 % Normal 0.9-7.0 [facility] Comment on above: Performed By: #### C BC ####[facility] Swwcqvosyu232[address] [place], [place] [address]Dr. Areli Yousif Erythrocyte distribution width (RBC) [Ratio] 13.1 % Normal 11.0-15.0 [facility] Comment on above: Performed By: #### C BC ####[facility] Wgkahbullx66[address] [place], [place] [address]Dr. Areli Yousif Hematocrit (Bld) [Volume fraction] 35.4 % Critically low 42.0-54.0 [facility] Comment on above: Performed By: #### C BC ####[facility] Xqywudozqe38[address] [place], [place] [address]Dr. Tabbytulio Yousif Hemoglobin (Bld) [Mass/Vol] 11.6 g/dL Critically low 14.0-18.0 [facility] Comment on above: Performed By: #### C BC ####[facility] Cpfyebsvlt716[address] [place], [place] [address]Dr. Areli Yousif IG # 0.06 10e3/ul Critically high 0.00-0.03 [facility] Comment on above: Performed By: #### C BC ####[facility] Haivemkanp3296 [place] [id number]. Areli Yousif IG % 0.5 % Normal 0.0-0.5 [facility] Comment on above: Performed By: #### C BC ####[facility] Gtfuvndulp4984 [place] [id number]. Areli Yousif LYMPH # 2.9 103/ul Normal 1.2-3.8 [facility] Comment on above: Performed By: #### C BC ####[facility] Tkgmhpdmzx1386 [place] [id number]. Areli Yousif Lymphocytes/100 WBC (Bld) 26.2 % Normal 20.5-60.0 [facility] Comment on above: Performed By: #### C BC ####[facility] Tpcprxtuov1098 [place] [address]Dr. Areli Yousif MANUAL DIFF REQ NO Normal [facility] Comment on above: Performed By: #### C BC ####[facility] Aitboaiwbf7[address] [place], [place] [address]Dr. Areli Yousif MCH (RBC) [Entitic mass] 29.2 pg Normal 25.9-34.0 [facility] Comment on above: Performed By: #### C BC ####[facility] Hqtwdernwk1233 [place] [id number]. Areli Yousif MCHC (RBC) [Mass/Vol] 32.8 g/dL Normal 29.9-35.2 [facility] Comment on above: Performed By: #### C BC ####[facility] Khynmwmwee[address] [place], [place] [address]Dr. Areli Yousif MCV (RBC) [Entitic vol] 89.2 fL Normal 80.0-94.0 [facility] Comment on above: Performed By: #### C BC ####[facility] Mhtgeyhzly1787 [place] [id number]. Areli Benja MONO # 0.7 103/ul Normal 0.3-0.8 [facility] Comment on above: Performed By: #### C BC ####[facility] Gvudesolcn1612 [place] [id number]. Areli Yousif Monocytes/100 WBC (Bld) 6.1 % Normal 1.7-12.0 [facility] Comment on above: Performed By: #### C BC ####[facility] Rdbmisybfr4210 [place] [id number]. Areli Yousif NEUT # 7.0 103/ul Critically high 1.4-6.[address] [facility] Comment on above: Performed By: #### C BC ####[facility] Yiuonsyeui2288 [place] [id number]. Areli Yousif Neutrophils/100 WBC (Bld) 63.3 % Normal 43.0-75.0 [facility] Comment on above: Performed By: #### C BC ####[facility] Brwojiexzk3969 [place] [address]Dr. Areli Yousif Platelet mean volume (Bld) [Entitic vol] 10.3 fL Normal 9.5-13.5 [facility] Comment on above: Performed By: #### C BC ####[facility] Stjdacobgf8396 [place] [id number]. Areli Yousif PLT 317 103/ul Normal 150-450 [facility] Comment on above: Performed By: #### C BC ####[facility] Pyyepzzsfu4457 [place] [id number]. Areli Yousif RBC 3.97 106/ul Critically low 4.70-6.[address] [facility] Comment on above: Performed By: #### C BC ####[facility] [address]udclttmx[address] [place] [id number]. Areli Yousif WBC 11.0 103/ul Normal 4.0-11.0 [facility] Comment on above: Performed By: #### C BC ####[facility] Kl[address]ks[address] [place] [address]Dr. Areli Yousif CT FACIAL BONES WO CONon CT FACIAL BONES WO CON Normal [facility] LIPASEon 10-08-2022 Lipase [Catalytic activity/Vol] 133.0 U/L Normal 73.0-393.0 [facility] Comment on above: Performed By: #### L IPA, CMADM, BNP, CMP ####[facility] [address] [place] [address]Dr. Areli Yousif PH VENOUS BLOODon 10-08-2022 PCO2 VENOUS 43.2 mmHg Normal 40.0-52.0 [facility] Comment on above: Performed By: #### P HVEN ####[facility] Dlndhfhggy[address] [place] [address]Dr. Areli Yousif pH VENOUS 7.276 Critically low 7.330-7.430 [facility] Comment on above: Performed By: #### P HVEN ####[facility] Cvalwpehec[address] [place] [address]Dr. Areli Yousif PROF 14(COMP METB)on 023 Albumin [Mass/Vol] 2.9 g/dL Critically low 3.4-5.0 [facility] Comment on above: Performed By: #### L IPA, CMADM, BNP, CMP ####[facility] Iizzutryyt[address] [place] [address]Dr. Areli Yousif Albumin/Globulin [Mass ratio] 0.7 {ratio} Normal [facility] Comment on above: Performed By: #### L IPA, CMADM, BNP, CMP ####[facility] Wbhmlrzqtk[address] [place] [address]Dr. Areli Yousif ALP [Catalytic activity/Vol] 87 U/L Normal 46-116 [facility] Comment on above: Performed By: #### L IPA, CMADM, BNP, CMP ####[facility] Xmamdwgybx[address] [place] [address]Dr. Areli Yousif ALT [Catalytic activity/Vol] 18 U/L Normal 16-63 [facility] Comment on above: Performed By: #### L IPA, CMADM, BNP, CMP ####[facility] Mwjrbqkboq[address] [place] [address]Dr. Areli Yousif Anion gap [Moles/Vol] 16.1 mmol/L Normal [facility] Comment on above: Performed By: #### L IPA, CMADM, BNP, CMP ####[facility] Rroaagpzyz[address] [place] [address]Dr. Areli Yousif AST [Catalytic activity/Vol] 14 U/L Critically low 15-37 [facility] Comment on above: Performed By: #### L IPA, CMADM, BNP, CMP ####[facility] Ybmhigedhi[address] [place] [address]Dr. Areli Yousif Bilirubin [Mass/Vol] 0.2 mg/dL Normal 0.2-1.0 [facility] Comment on above: Performed By: #### L IPA, CMADM, BNP, CMP ####[facility] Whejtmvlbu[address] [place] [address]Dr. Areli Yousif Calcium [Mass/Vol] 8.8 mg/dL Normal 8.5-10.1 [facility] Comment on above: Performed By: #### L IPA, CMADM, BNP, CMP ####[facility] Lzmtbdpj[address] [place], [place] [address]Dr. Areli Yousif Chloride [Moles/Vol] 103 mmol/L Normal 98-107 [facility] Comment on above: Performed By: #### L IPA, CMADM, BNP, CMP ####[facility] Jkcyiscsvr[address] [place] [address]Dr. Areli Yousif CO2 [Moles/Vol] 21.4 mmol/L Normal 21.0-32.0 [facility] Comment on above: Performed By: #### L IPA, CMADM, BNP, CMP ####[facility] Acsoouseuz[address] [place] [address]Dr. Areli Yousif Creatinine [Mass/Vol] 1.35 mg/dL Critically high 0.70-1.30 [facility] Comment on above: Performed By: #### L IPA, CMADM, BNP, CMP ####[facility] Cssrizpvmf[address] [place] [address]Dr. Areli Yousif EGFR-AF MONEGASQUE >60 Normal >=60 [facility] Comment on above: Performed By: #### L IPA, CMADM, BNP, CMP ####[facility] Czornqgtto30[address] [place] [address]Dr. Areli Yousif EGFR-NON AF MONEGASQUE 53 mL/min/1.73m2 Critically low >=60 [facility] Comment on above: Performed By: #### L IPA, CMADM, BNP, CMP ####[facility] Wwkuqafxqu[address] [place] [address]Dr. Areli Yousif Globulin (S) [Mass/Vol] 3.9 g/dL Normal [facility] Comment on above: Performed By: #### L IPA, CMADM, BNP, CMP ####[facility] Ztcbzsrpew36[address] [place] [address]Dr. Areli Yousif Glucose [Mass/Vol] 276 mg/dL Critically high 74-106 [facility] Comment on above: Performed By: #### L IPA, CMADM, BNP, CMP ####[facility] Mzkarzfwsh[address] [place] [address]Dr. Areli Yousif Potassium [Moles/Vol] 4.5 mmol/L Normal 3.5-5.1 [facility] Comment on above: Performed By: #### L IPA, CMADM, BNP, CMP ####[facility] Erfeuxbnon[address] [place] [address]Dr. Areli Yousif Protein [Mass/Vol] 6.8 g/dL Normal 6.4-8.2 [facility] Comment on above: Performed By: #### L IPA, CMADM, BNP, CMP ####[facility] Gcrqduqtut[address] [place] [address]Dr. Areli Yousif Sodium [Moles/Vol] 136 mmol/L Normal 136-145 [facility] Comment on above: Performed By: #### L IPA, CMADM, BNP, CMP ####[facility] Btrrqwrygx[address] [place] [address]Dr. Areli Yousif Urea nitrogen [Mass/Vol] 44.0 mg/dL Critically high 7.0-18.0 [facility] Comment on above: Performed By: #### L IPA, CMADM, BNP, CMP ####[facility] Tbkicywins[address] [place], [place] [address]Dr. Areli Yousif Urea nitrogen/Creatinine [Mass ratio] 32.6 mg/mg Normal [facility] Comment on above: Performed By: #### L IPA, CMADM, BNP, CMP ####[facility] Ixvuxmdamu[address] [place] [address]Dr. Areli Yousif PROTIMEon 10-08-2022 INR Coag (PPP) [Relative time] 1.04 {INR} Normal [facility] Comment on above: Performed By: #### P T, PTT ####[facility] Kvgmezlmwa[address] [place] [address]Dr. Areli Yousif INR GUIDELINES SEE BELOW Normal [facility] Comment on above: Result Comment: LANDON RED INR: 2.0 - 3.0 CONDITIONS NOT LISTED BELOW 2.5 - 3.5 FOR PROSTHETIC HEART VALVE REPLACEMENT 2.5 - 3.5 RECURRENT THROMBOSIS Performed By: #### P T, PTT ####[facility] Zdmfgdeopr08[address] [place] [address]Dr. Areli Yousif PT Coag (PPP) [Time] 11.2 s Normal 9.0-11.6 [facility] Comment on above: Performed By: #### P T, PTT ####[facility] Llonqxuduf[address] [place] [address]Dr. Areli Yousif PTTon 10-08-2022 aPTT Coag (Bld) [Time] 28.0 s Normal 22.3-36.2 [facility] Comment on above: Performed By: #### P T, PTT ####[facility] Tvbjbfydtj7[address] [place] [address]Dr. Areli Yousif XR CHEST 1 Von 10-08-2022 XR CHEST 1 V Normal [facility] XR HUMERUS RT MIN 2 Von XR HUMERUS RT MIN 2 V Normal [facility] CBC AUTO DIFFon 10-07-2022 BASO # 0.1 103/ul Normal 0.0-0.1 [facility] Comment on above: Performed By: #### C BC ####[facility] Xtfstrasxc5783 [place] [address]Dr. Areli Yousif Basophils/100 WBC (Bld) 0.6 % Normal 0.2-2.0 [facility] Comment on above: Performed By: #### C BC ####[facility] Uahvnwmqay23[address] [place] [id number]. Areli Yousif EO # 0.4 103/ul Normal 0.0-0.7 [facility] Comment on above: Performed By: #### C BC ####[facility] Vxvbrrspgr[address] [place], [place] [address]Dr. Areli Yousif Eosinophils/100 WBC (Bld) 3.5 % Normal 0.9-7.0 [facility] Comment on above: Performed By: #### C BC ####[facility] Tbwctuhtod[address] [place], [place] [address]Dr. Areli Yousif Erythrocyte distribution width (RBC) [Ratio] 13.4 % Normal 11.0-15.0 [facility] Comment on above: Performed By: #### C BC ####[facility] Lcofbcvikk[address] [place], [place] [address]Dr. Areli Yousif Hematocrit (Bld) [Volume fraction] 36.6 % Critically low 42.0-54.0 [facility] Comment on above: Performed By: #### C BC ####[facility] Elgqzodqqd[address] [place], [place] [address]Dr. Areli Yousif Hemoglobin (Bld) [Mass/Vol] 12.1 g/dL Critically low 14.0-18.0 [facility] Comment on above: Performed By: #### C BC ####[facility] Tywgnybssw[address] [place], [place] [address]Dr. Areli Yousif IG # 0.04 10e3/ul Critically high 0.00-0.03 [facility] Comment on above: Performed By: #### C BC ####[facility] Irvwieeouw[address] [place], [place] [id number]. Areli Yousif IG % 0.4 % Normal 0.0-0.5 [facility] Comment on above: Performed By: #### C BC ####[facility] Ewlsearsct7[address] [place], [place] [address]Dr. Areli Yousif LYMPH # 4.1 103/ul Critically high 1.2-3.[address] [facility] Comment on above: Performed By: #### C BC ####[facility] Kabsjlxonr[address] [place] [address]Dr. Areli Yousif Lymphocytes/100 WBC (Bld) 38.0 % Normal 20.5-60.0 [facility] Comment on above: Performed By: #### C BC ####[facility] Iigbopakrb8[address] [place] [address]Dr. Areil Yousif MANUAL DIFF REQ NO Normal [facility] Comment on above: Performed By: #### C BC ####[facility] Yayxsnlehl[address] [place] [address]Dr. Areli Yousif MCH (RBC) [Entitic mass] 29.1 pg Normal 25.9-34.0 [facility] Comment on above: Performed By: #### C BC ####[facility] Vscqzhiocv[address] [place], [place] [address]Dr. Areli Yousif MCHC (RBC) [Mass/Vol] 33.1 g/dL Normal 29.9-35.2 [facility] Comment on above: Performed By: #### C BC ####[facility] Fzgxbwzyva64[address] [place], [place] [address]Dr. Areli Yousif MCV (RBC) [Entitic vol] 88.0 fL Normal 80.0-94.0 [facility] Comment on above: Performed By: #### C BC ####[facility] Pigkdilrrk6[address] [place] [address]Dr. Areli Yousif MONO # 0.5 103/ul Normal 0.3-0.8 [facility] Comment on above: Performed By: #### C BC ####[facility] Nadqtyiqyv3072 [place] [address]Dr. Areli Yousif Monocytes/100 WBC (Bld) 4.9 % Normal 1.7-12.0 [facility] Comment on above: Performed By: #### C BC ####[facility] Lkosnuurcm32[address] [place], [place] [address]Dr. Areli Yousif NEUT # 5.6 103/ul Normal 1.4-6.5 [facility] Comment on above: Performed By: #### C BC ####[facility] Yvvacxrntz5669 [place] [id number]. Areli Yousif Neutrophils/100 WBC (Bld) 52.6 % Normal 43.0-75.0 [facility] Comment on above: Performed By: #### C BC ####[facility] Zcykzpxdjd2040 [place] [id number]. Areli Yousif Platelet mean volume (Bld) [Entitic vol] 10.4 fL Normal 9.5-13.5 [facility] Comment on above: Performed By: #### C BC ####[facility] Qoiqhdkxuy48[address] [place] [address]Dr. Areli Yousif PLT 338 103/ul Normal 150-450 [facility] Comment on above: Performed By: #### C BC ####[facility] Ylrarnhjad5304 [place] [id number]. Areli Yousif RBC 4.16 106/ul Critically low 4.70-6.[address] [facility] Comment on above: Performed By: #### C BC ####[facility] Eytfdvfmht8748 [place] [id number]. Areli Yousif WBC 10.7 103/ul Normal 4.0-11.0 [facility] Comment on above: Performed By: #### C BC ####[facility] Pcbjyrmhlu1098 [place] [id number]. Areli Yousif CT CSPINE WO CONon 3 CT CSPINE WO CON Normal [facility] CT STROKE HEAD WOon 10-07-19 CT STROKE HEAD WO Normal [facility] Covid-19 PCR ([facility])on SARS-CoV-2 (COVID-19) RNA MANSI+probe Ql (Unsp spec) Not detected Normal NOT DETECTED [facility] Comment on above: Result Comment: When diagnostic [...] for this test is supported by the [place] of Health and Human Service's declaration that [...] be used). Performed By: #### C VDTB ####[facility] Oifupzejdb[address] [place], [place] [address]Dr. Areli Yousif INFLUENZA A AND B AGon 10-07 [facility] SEE BELOW Normal [facility] Comment on above: Result Comment: Nega tive for Flu A protein angiten. Infection due to Flu A cannot be ruled out. Flu A angiten in the sample may be below the detection limit of the test. Performed By: #### I NFLUAB ####[facility] Pvffatvakm[address] [place], [place] [address]Dr. Areli Yousif INFLUBNEGH SEE BELOW Normal [facility] Comment on above: Result Comment: Nega tive for Flu B protein antigen. Infection due to Flu B cannot be ruled out. Flu B antigen in the sample may be below the detection limit of the test. Performed By: #### I NFLUAB ####[facility] Tgcxswrpsq[address] [place], [place] [address]Dr. Areli Yousif INFLUENZA A AG Negative Normal NEGATIVE SEE COMMENT [facility] Comment on above: Performed By: #### I NFLUAB ####[facility] Kryemtkssq[address] [place], [place] [address]Dr. Areli [facility] INFLUENZA B AG Negative Normal NEGATIVE SEE COMMENT [facility] Comment on above: Performed By: #### I NFLUAB ####[facility] Sazvnwsebg[address] [place], [place] [address]Dr. Areli Yousif POINT OF CARE GLUCOSEon 01-0 Glucose [Mass/Vol] 263 mg/dL Critically high 74-106 [facility] Comment on above: Performed By: #### P OCGLUC ####[facility] Ztakakbaus6[address] [place] [address]Dr. Areli Yousif PROF CHEM 8 (BAS METB)on Anion gap [Moles/Vol] 17.2 mmol/L Normal [facility] Comment on above: Performed By: #### B MP ####[facility] Geyrqctvlr5247 [place] [address]Dr. Areli Yousif Calcium [Mass/Vol] 9.2 mg/dL Normal 8.5-10.1 [facility] Comment on above: Performed By: #### B MP ####[facility] Jlpqcdqncj[address] [place], [place] [address]Dr. Areli Yousif Chloride [Moles/Vol] 104 mmol/L Normal 98-107 [facility] Comment on above: Performed By: #### B MP ####[facility] Bkpiidswek3220 [place] [address]Dr. Areli Yousif CO2 [Moles/Vol] 19.1 mmol/L Critically low 21.0-32.0 [facility] Comment on above: Performed By: #### B MP ####[facility] Mdlngwxtev20[address] [place], [place] [address]Dr. Areli Yousif Creatinine [Mass/Vol] 1.29 mg/dL Normal 0.70-1.30 [facility] Comment on above: Performed By: #### B MP ####[facility] Rdkreshedi9531 [place] [address]Dr. Areli Yousif EGFR-AF MONEGASQUE >60 Normal >=60 [facility] Comment on above: Performed By: #### B MP ####[facility] Nliqqkyyth89[address] [place] [address]Dr. Areli Yousif EGFR-NON AF MONEGASQUE 55 mL/min/1.73m2 Critically low >=60 [facility] Comment on above: Performed By: #### B MP ####[facility] Myxyvzptoe5761 [place] [id number]. Areli Yousif Glucose [Mass/Vol] 165 mg/dL Critically high 74-106 [facility] Comment on above: Performed By: #### B MP ####[facility] Diaiopvufr0241 [place] [id number]. Areli Yousif Potassium [Moles/Vol] 4.3 mmol/L Normal 3.5-5.1 [facility] Comment on above: Performed By: #### B MP ####[facility] Neloorsdem[address] [place], [place] [address]Dr. Areli Yousif Sodium [Moles/Vol] 136 mmol/L Normal 136-145 [facility] Comment on above: Performed By: #### B MP ####[facility] Wmeuhczxae385[address] [place], [place] [address]Dr. Areli Benja Urea nitrogen [Mass/Vol] 43.0 mg/dL Critically high 7.0-18.0 [facility] Comment on above: Performed By: #### B MP ####[facility] Hodnzsfqvh[address] [place], [place] [address]Dr. Areli Benja Urea nitrogen/Creatinine [Mass ratio] 33.3 mg/mg Normal [facility] Comment on above: Performed By: #### B MP ####[facility] Pmiibupsgz24[address] [place], [place] [address]Dr. Areli Benja CBC AUTO DIFFon 10-06-2022 BASO # 0.0 103/ul Normal 0.0-0.1 [facility] Comment on above: Performed By: #### C BC ####[facility] Eswezzwbef27[address] [place] [address]Dr. Tabbytulio Yousif Basophils/100 WBC (Bld) 0.5 % Normal 0.2-2.0 [facility] Comment on above: Performed By: #### C BC ####[facility] Vcrpwbymth[address] [place], [place] [address]Dr. Areli Yousif EO # 0.2 103/ul Normal 0.0-0.7 [facility] Comment on above: Performed By: #### C BC ####[facility] Jhoskspzvc2722 [place] [address]Dr. Areli Yousif Eosinophils/100 WBC (Bld) 2.8 % Normal 0.9-7.0 [facility] Comment on above: Performed By: #### C BC ####[facility] Cwiisdlrhd2450 [place] [address]Dr. Areli Yousif Erythrocyte distribution width (RBC) [Ratio] 13.4 % Normal 11.0-15.0 [facility] Comment on above: Performed By: #### C BC ####[facility] Frfjoruuon26[address] [place], [place] [address]Dr. Areli Yousif Hematocrit (Bld) [Volume fraction] 33.6 % Critically low 42.0-54.0 [facility] Comment on above: Performed By: #### C BC ####[facility] Tejohkhnbu[address] [place], [place] [address]Dr. Areli Yousif Hemoglobin (Bld) [Mass/Vol] 11.2 g/dL Critically low 14.0-18.0 [facility] Comment on above: Performed By: #### C BC ####[facility] Qrwumcromc[address] [place], [place] [address]Dr. Areli Yousif IG # 0.04 10e3/ul Critically high 0.00-0.03 [facility] Comment on above: Performed By: #### C BC ####[facility] Bldtuumuzs50[address] [place], [place] [address]Dr. Areli Yousif IG % 0.5 % Normal 0.0-0.5 [facility] Comment on above: Performed By: #### C BC ####[facility] Msoizubkja[address] [place], [place] [address]Dr. Areli Yousif LYMPH # 3.1 103/ul Normal 1.2-3.8 [facility] Comment on above: Performed By: #### C BC ####[facility] Tvnzccjewo[address] [place], [place] [address]Dr. Areli Yousif Lymphocytes/100 WBC (Bld) 36.1 % Normal 20.5-60.0 [facility] Comment on above: Performed By: #### C BC ####[facility] Msbxfguczv0314 [place] [id number]. Areli Yousif MANUAL DIFF REQ NO Normal [facility] Comment on above: Performed By: #### C BC ####[facility] Yrtkpvxlno2941 [place] [id number]. Areli Yousif MCH (RBC) [Entitic mass] 29.2 pg Normal 25.9-34.0 [facility] Comment on above: Performed By: #### C BC ####[facility] Wiasntpqlm4616 [place] [id number]. Areli Yousif MCHC (RBC) [Mass/Vol] 33.3 g/dL Normal 29.9-35.2 [facility] Comment on above: Performed By: #### C BC ####[facility] Klntwnqmma[address] [place], [place] [address]Dr. Areli Yousif MCV (RBC) [Entitic vol] 87.5 fL Normal 80.0-94.0 [facility] Comment on above: Performed By: #### C BC ####[facility] Ytbpulfamh[address] [place], [place] [address]Dr. Areli Yousif MONO # 0.5 103/ul Normal 0.3-0.8 [facility] Comment on above: Performed By: #### C BC ####[facility] Cdqbepusux[address] [place], [place] [address]Dr. Areli Yousif Monocytes/100 WBC (Bld) 6.2 % Normal 1.7-12.0 [facility] Comment on above: Performed By: #### C BC ####[facility] Eqzinsrvny38[address] [place], [place] [address]Dr. Areli Yousif NEUT # 4.6 103/ul Normal 1.4-6.5 [facility] Comment on above: Performed By: #### C BC ####[facility] Tfiujjamrz[address] [place], [place] [address]Dr. Areli Yousif Neutrophils/100 WBC (Bld) 53.9 % Normal 43.0-75.0 [facility] Comment on above: Performed By: #### C BC ####[facility] Ivqkajnqpw0116 [place] [id number]. Areli Yousif Platelet mean volume (Bld) [Entitic vol] 10.6 fL Normal 9.5-13.5 [facility] Comment on above: Performed By: #### C BC ####[facility] Olpabdgswp1917 [place] [id number]. Areli Yousif PLT 314 103/ul Normal 150-450 [facility] Comment on above: Performed By: #### C BC ####[facility] Vdocsgtqpl1250 [place] [id number]. Areli Yousif RBC 3.84 106/ul Critically low 4.70-6.10 [facility] Comment on above: Performed By: #### C BC ####[facility] Lxxfshhlgc1127 [place] [address]Dr. Areli Yousif WBC 8.6 103/ul Normal 4.0-11.0 [facility] Comment on above: Performed By: #### C BC ####[facility] Okbyjbsfzz1420 [place] [id number]. Areli Yousif POINT OF CARE GLUCOSEon Glucose [Mass/Vol] 249 mg/dL Critically high -106 [facility] Comment on above: Performed By: #### P OCGLUC ####[facility] Jzbwpfvzrw5265 [place] [address]Dr. Areli Yousif Glucose [Mass/Vol] 443 mg/dL Critically high 74-106 [facility] Comment on above: Performed By: #### P OCGLUC ####[facility] Rggebmqwbq3966 [place] [address]Dr. Areil Yousif Glucose [Mass/Vol] 311 mg/dL Critically high -106 [facility] Comment on above: Performed By: #### P OCGLUC ####[facility] Pakjfatzrh4038 [place] [address]Dr. Areli Yousif Glucose [Mass/Vol] 241 mg/dL Critically high -106 [facility] Comment on above: Performed By: #### P OCGLUC ####[facility] Pfwtbacvyq4668 [place] [address]Dr. Areli Yousif PROF CHEM 8 (BAS METB)on Anion gap [Moles/Vol] 15.2 mmol/L Normal [facility] Comment on above: Performed By: #### B MP ####[facility] Cdjrbuobto4740 [place] [address]Dr. Areli Yousif Calcium [Mass/Vol] 8.5 mg/dL Normal 8.5-10.1 [facility] Comment on above: Performed By: #### B MP ####[facility] Knalyrhtmm94[address] [place], [place] [address]Dr. Areli Yousif Chloride [Moles/Vol] 105 mmol/L Normal 98-107 [facility] Comment on above: Performed By: #### B MP ####[facility] Yzmibuanje[address] [place], [place] [address]Dr. Areli Yousif CO2 [Moles/Vol] 20.0 mmol/L Critically low 21.0-32.0 [facility] Comment on above: Performed By: #### B MP ####[facility] Xdizrfpdum[address] [place], [place] [address]Dr. Areli Yousif Creatinine [Mass/Vol] 1.32 mg/dL Critically high 0.70-1.30 [facility] Comment on above: Performed By: #### B MP ####[facility] Hitrgabrox13[address] [place], [place] [address]Dr. Areli Yousif EGFR-AF MONEGASQUE >60 Normal >=60 [facility] Comment on above: Performed By: #### B MP ####[facility] Wqyghzzfye394[address] [place], [place] [address]Dr. Areli Yousif EGFR-NON AF MONEGASQUE 54 mL/min/1.73m2 Critically low >=60 [facility] Comment on above: Performed By: #### B MP ####[facility] Fndlhuupdm[address] [place], [place] [address]Dr. Areli Yousif Glucose [Mass/Vol] 280 mg/dL Critically high 74-106 [facility] Comment on above: Performed By: #### B MP ####[facility] Mqiissshtt8780 [place] [address]Dr. Areli Benja Potassium [Moles/Vol] 4.2 mmol/L Normal 3.5-5.1 [facility] Comment on above: Performed By: #### B MP ####[facility] Kgrhgpmkdp0433 [place] [address]Dr. Areli Yousif Sodium [Moles/Vol] 136 mmol/L Normal 136-145 [facility] Comment on above: Performed By: #### B MP ####[facility] Srzdlwwzis[address] [place], [place] [address]Dr. Areli Benja Urea nitrogen [Mass/Vol] 37.0 mg/dL Critically high 7.0-18.0 [facility] Comment on above: Performed By: #### B MP ####[facility] Kztmadjslp[address] [place], [place] [address]Dr. Areli Yousif Urea nitrogen/Creatinine [Mass ratio] 28.0 mg/mg Normal [facility] Comment on above: Performed By: #### B MP ####[facility] Stiqjyiuih[address] [place], [place] [address]Dr. Areli Benja CBC AUTO DIFFon 10-05-2022 BASO # 0.0 103/ul Normal 0.0-0.1 [facility] Comment on above: Performed By: #### C BC ####[facility] Etctbnbmhf[address] [place], [place] [address]Dr. Areli Yousif Basophils/100 WBC (Bld) 0.3 % Normal 0.2-2.0 [facility] Comment on above: Performed By: #### C BC ####[facility] Gwgaskzdsq[address] [place], [place] [address]Dr. Areli Yousif EO # 0.2 103/ul Normal 0.0-0.7 [facility] Comment on above: Performed By: #### C BC ####[facility] [address]rafjefkl[address] [place], [place] [address]Dr. Areli Yousif Eosinophils/100 WBC (Bld) 2.8 % Normal 0.9-7.0 [facility] Comment on above: Performed By: #### C BC ####[facility] Lowrfgukhi[address] [place] [address]Dr. Areli Yousif Erythrocyte distribution width (RBC) [Ratio] 13.1 % Normal 11.0-15.0 [facility] Comment on above: Performed By: #### C BC ####[facility] Lepowgpney[address] [place], [place] [address]Dr. Areli Yousif Hematocrit (Bld) [Volume fraction] 33.4 % Critically low 42.0-54.0 [facility] Comment on above: Performed By: #### C BC ####[facility] Pzreakkdqz[address] [place], [place] [address]Dr. Areli Yousif Hemoglobin (Bld) [Mass/Vol] 11.0 g/dL Critically low 14.0-18.0 [facility] Comment on above: Performed By: #### C BC ####[facility] Vgmmtrqghs[address] [place], [place] [address]Dr. Areli Benja IG # 0.03 10e3/ul Normal 0.00-0.03 [facility] Comment on above: Performed By: #### C BC ####[facility] Cfgaharlcs[address] [place], [place] [address]Dr. Areli Yousif IG % 0.3 % Normal 0.0-0.5 [facility] Comment on above: Performed By: #### C BC ####[facility] Yfojtsihxm[address] [place], [place] [address]Dr. Areli Benja LYMPH # 3.5 103/ul Normal 1.2-3.8 [facility] Comment on above: Performed By: #### C BC ####[facility] Uiebtjimdi[address] [place], [place] [address]Dr. Tabbytulio Yousif Lymphocytes/100 WBC (Bld) 40.4 % Normal 20.5-60.0 [facility] Comment on above: Performed By: #### C BC ####[facility] Ovzuiklonn[address] [place], [place] [address]Dr. Areli Yousif MANUAL DIFF REQ NO Normal [facility] Comment on above: Performed By: #### C BC ####[facility] Nvsdhsxmcp10[address] [place] [address]Dr. Areli Yousif MCH (RBC) [Entitic mass] 28.7 pg Normal 25.9-34.0 [facility] Comment on above: Performed By: #### C BC ####[facility] Upvblygwnu15[address] [place] [address]Dr. Areli Yousif MCHC (RBC) [Mass/Vol] 32.9 g/dL Normal 29.9-35.2 [facility] Comment on above: Performed By: #### C BC ####[facility] Tqymtdlkbg9[address] [place], [place] [address]DrDenae Yousif MCV (RBC) [Entitic vol] 87.2 fL Normal 80.0-94.0 [facility] Comment on above: Performed By: #### C BC ####[facility] Rwjzmftcqq[address] [place], [place] [address]DrDenae Yousif MONO # 0.5 103/ul Normal 0.3-0.8 [facility] Comment on above: Performed By: #### C BC ####[facility] Cixqripeeu8[address] [place], [place] [address]DrDenae Yousif Monocytes/100 WBC (Bld) 5.8 % Normal 1.7-12.0 [facility] Comment on above: Performed By: #### C BC ####[facility] Olivfejdux[address] [place], [place] [address]DrDenae Yousif NEUT # 4.3 103/ul Normal 1.4-6.5 [facility] Comment on above: Performed By: #### C BC ####[facility] Lmobanazds6[address] [place], [place] [address]DrDenae Yousif Neutrophils/100 WBC (Bld) 50.4 % Normal 43.0-75.0 [facility] Comment on above: Performed By: #### C BC ####[facility] Cwtsfdpwpa[address] [place], [place] [address]DrDenae Yousif Platelet mean volume (Bld) [Entitic vol] 10.5 fL Normal 9.5-13.5 [facility] Comment on above: Performed By: #### C BC ####[facility] Lnlfbtnsek6533 [place] [id number]. Areli Yousif PLT 320 103/ul Normal 150-450 [facility] Comment on above: Performed By: #### C BC ####[facility] Cmgegpemhn8319 [place] [id number]. Areli Yousif RBC 3.83 106/ul Critically low 4.70-6.10 [facility] Comment on above: Performed By: #### C BC ####[facility] Hfgbwiszsl0064 [place] [id number]. Areli Yousif WBC 8.6 103/ul Normal 4.0-11.0 [facility] Comment on above: Performed By: #### C BC ####[facility] Pjkicgreuy7438 [place] [id number]. Tabbytulio Benja CULTURE URINEon 10-05-2022 CULTURE URINE Normal [facility] Comment on above: Performed By: #### U RCX ####[facility] Ucvtsszqhl0916 [place] [id number]. Areli Yousif POINT OF CARE GLUCOSEon Glucose [Mass/Vol] 266 mg/dL Critically high 74-106 [facility] Comment on above: Performed By: #### P OCGLUC ####[facility] Fidsdoglpy1191 [place] [id number]. Areli Yousif Glucose [Mass/Vol] 320 mg/dL Critically high 74-106 [facility] Comment on above: Performed By: #### P OCGLUC ####[facility] Nhobfvkekn4563 [place] [id number]. Tabbytulio Benja Glucose [Mass/Vol] 282 mg/dL Critically high 74-106 [facility] Comment on above: Performed By: #### P OCGLUC ####[facility] Wxklfzbdmn2880 [place] [id number]. Areli Yousif PROF CHEM 8 (BAS METB)on Anion gap [Moles/Vol] 16.2 mmol/L Normal [facility] Comment on above: Performed By: #### B MP ####[facility] Pxsvuczime64[address] [place] [address]Dr. Tabbytulio Yousif Calcium [Mass/Vol] 8.7 mg/dL Normal 8.5-10.1 [facility] Comment on above: Performed By: #### B MP ####[facility] Ymxcghqkvv9161 [place] [address]Dr. Areli Yousif Chloride [Moles/Vol] 105 mmol/L Normal 98-107 [facility] Comment on above: Performed By: #### B MP ####[facility] Uokxuzghyl[address] [place], [place] [address]Dr. Tabbytulio Benja CO2 [Moles/Vol] 19.1 mmol/L Critically low 21.0-32.0 [facility] Comment on above: Performed By: #### B MP ####[facility] Moyfmeqymx58[address] [place], [place] [address]Dr. Areli Yousif Creatinine [Mass/Vol] 0.96 mg/dL Normal 0.70-1.30 [facility] Comment on above: Performed By: #### B MP ####[facility] Ieisrfzqtv79[address] [place], [place] [address]Dr. Areli Yousif EGFR-AF MONEGASQUE >60 Normal >=60 [facility] Comment on above: Performed By: #### B MP ####[facility] Mvxqrbftki4468 [place] [address]Dr. Areli Yousif EGFR-NON AF MONEGASQUE >60 Normal >=60 [facility] Comment on above: Performed By: #### B MP ####[facility] Kgxftjhdtv8776 [place] [address]Dr. Areli Yousif Glucose [Mass/Vol] 139 mg/dL Critically high 74-106 [facility] Comment on above: Performed By: #### B MP ####[facility] Guxzjmtura7[address] [place], [place] [address]Dr. Areli Yousif Potassium [Moles/Vol] 4.3 mmol/L Normal 3.5-5.1 [facility] Comment on above: Performed By: #### B MP ####[facility] Xsjpzproxc9017 [place] [address]Dr. Areli Yousif Sodium [Moles/Vol] 136 mmol/L Normal 136-145 [facility] [place] Comment on above: Performed By: #### B MP ####[facility] Gbkiknmhko9[address] [place], [place] [address]Dr. Areli Yousif Urea nitrogen [Mass/Vol] 26.0 mg/dL Critically high 7.0-18.0 [facility] Comment on above: Performed By: #### B MP ####[facility] Azsclkvwco34[address] [place], [place] [address]Dr. Areli Benja Urea nitrogen/Creatinine [Mass ratio] 27.1 mg/mg Normal [facility] Comment on above: Performed By: #### B MP ####[facility] Svpnbzgeps033[address] [place], [place] [address]Dr. Areli Benja CBC AUTO DIFFon 10-04-2022 BASO # 0.1 103/ul Normal 0.0-0.1 [facility] Comment on above: Performed By: #### C BC ####[facility] Koezzhiera[address] [place], [place] [address]Dr. Areli Benja Basophils/100 WBC (Bld) 0.5 % Normal 0.2-2.0 [facility] Comment on above: Performed By: #### C BC ####[facility] Ogdmrckpfl13[address] [place], [place] [address]Dr. Areli Yousif EO # 0.3 103/ul Normal 0.0-0.7 [facility] Comment on above: Performed By: #### C BC ####[facility] Kdidkryxdk759[address] [place], [place] [address]Dr. Areli Benja Eosinophils/100 WBC (Bld) 3.1 % Normal 0.9-7.0 [facility] Comment on above: Performed By: #### C BC ####[facility] Bqzbjookfv12[address] [place], [place] [address]Dr. Areli Benja Erythrocyte distribution width (RBC) [Ratio] 13.2 % Normal 11.0-15.0 [facility] Comment on above: Performed By: #### C BC ####[facility] Ttkueprqqx0541 [place] [address]DrDenae Yousif Hematocrit (Bld) [Volume fraction] 32.0 % Critically low 42.0-54.0 [facility] Comment on above: Performed By: #### C BC ####[facility] Vfnbdvadfu3144 [place] [address]DrDenae Yousif Hemoglobin (Bld) [Mass/Vol] 10.7 g/dL Critically low 14.0-18.0 [facility] Comment on above: Performed By: #### C BC ####[facility] Dtunmosatv9[address] [place], [place] [address]DrDenae Yousif IG # 0.04 10e3/ul Critically high 0.00-0.03 [facility] Comment on above: Performed By: #### C BC ####[facility] Mwtctrttzf18[address] [place], [place] [address]DrDenae Yousif IG % 0.4 % Normal 0.0-0.5 [facility] Comment on above: Performed By: #### C BC ####[facility] Jtjrswwmvv[address] [place], [place] [address]DrDenae Yousif LYMPH # 3.6 103/ul Normal 1.2-3.8 [facility] Comment on above: Performed By: #### C BC ####[facility] Hhqidzmrlm20[address] [place], [place] [address]DrDenae Yousif Lymphocytes/100 WBC (Bld) 33.7 % Normal 20.5-60.0 [facility] Comment on above: Performed By: #### C BC ####[facility] Gfpjiwntii0964[address] [place], [place] [address]DrDneae Yousif MANUAL DIFF REQ NO Normal [facility] Comment on above: Performed By: #### C BC ####[facility] Bmmzkqcqdy6191 [place] [address]DrDenae Yousif MCH (RBC) [Entitic mass] 29.2 pg Normal 25.9-34.0 [facility] Comment on above: Performed By: #### C BC ####[facility] Eadteuafmb5591 [place] [address]Dr. Areli Yousif MCHC (RBC) [Mass/Vol] 33.4 g/dL Normal 29.9-35.2 [facility] Comment on above: Performed By: #### C BC ####[facility] Qeschuxncc9286 [place] [address]DrDenae Yousif MCV (RBC) [Entitic vol] 87.2 fL Normal 80.0-94.0 [facility] Comment on above: Performed By: #### C BC ####[facility] Seqilregxu43[address] [place], [place] [address]DrDenae Yousif MONO # 0.6 103/ul Normal 0.3-0.8 [facility] Comment on above: Performed By: #### C BC ####[facility] Dsqudjbngj224[address] [place], [place] [address]Dr. Areli Yousif Monocytes/100 WBC (Bld) 6.0 % Normal 1.7-12.0 [facility] Comment on above: Performed By: #### C BC ####[facility] Mhumtvsneu[address] [place], [place] [address]DrDenae Yousif NEUT # 6.0 103/ul Normal 1.4-6.5 [facility] Comment on above: Performed By: #### C BC ####[facility] Pvqmdrsxkl408[address] [place], [place] [address]Dr. Areli Yousif Neutrophils/100 WBC (Bld) 56.3 % Normal 43.0-75.0 [facility] Comment on above: Performed By: #### C BC ####[facility] Ofnbjlbjyw45[address] [place], [place] [address]DrDenae Yousif Platelet mean volume (Bld) [Entitic vol] 10.4 fL Normal 9.5-13.5 [facility] Comment on above: Performed By: #### C BC ####[facility] Mcxxyhoiff312[address] [place], [place] [address]Dr. Areli Yousif PLT 306 103/ul Normal 150-450 [facility] Comment on above: Performed By: #### C BC ####[facility] Pjddhphxmn3443 [place] [id number]. Areli Yousif RBC 3.67 106/ul Critically low 4.70-6.[address] [facility] Comment on above: Performed By: #### C BC ####[facility] Nhfhnkgsqi8518 [place] [address]Dr. Areli Yousif WBC 10.6 103/ul Normal 4.0-11.0 [facility] Comment on above: Performed By: #### C BC ####[facility] Qbdopfqicd9994 [place] [address]Dr. Areli Yousif FREE T3on 10-04-2022 FREE T3 1.74 pg/mlL Critically low 2.18-3.[address] [facility] Comment on above: Performed By: #### F T3, TSH ####[facility] Qqxckchpyo5887 [place] [address]Dr. Areli Yousif FREE T4on 10-04-2022 Free T4 [Mass/Vol] 1.25 ng/dL Normal 0.76-1.46 [facility] Comment on above: Performed By: #### V ITAD, FT4, B12FOL, FETIBC ####[facility] Cbbovrhcnf8[address] [place] [address]Dr. Areli Yousif GLYCOHEMOGLOBIN A1Con 2021 ADA RECOMMENDATION SEE BELOW Normal [facility] Comment on above: Result Comment: ADA RECOMMENDED LIMIT 4.0 - 6.0 ADA THERAPEUTIC TARGET < 7.0 ACTION SUGGESTED > 7.0 Performed By: #### A 1C ####[facility] Hryoxxdnek0302 [place] [address]Dr. Areli Yousif Glucose [Mass/Vol] 212 mg/dL Normal [facility] Comment on above: Performed By: #### A 1C ####[facility] Rxsnjxrsur9884 [place] [address]Dr. Areli Yousif HbA1c (Bld) [Mass fraction] 9.0 % Critically high 4.5-6.2 [facility] Comment on above: Performed By: #### A 1C ####[facility] Nqymfkyzzi7362 [place] [address]Dr. Areli Yousif IRON AND TIBCon 10-04-2022 % SATURATION 24.1 % Normal [facility] Comment on above: Performed By: #### V ITAD, FT4, B12FOL, FETIBC ####[facility] Ddtcumtnss9081 [place] [address]Dr. Areli Yousif Iron [Mass/Vol] 47.0 ug/dL Critically low 65.0-175.0 [facility] Comment on above: Performed By: #### V ITAD, FT4, B12FOL, FETIBC ####[facility] Ziaddqqnwb7929 [place] [address]Dr. Areli Yousif TIBC DIRECT 195.0 ug/dL Critically low 250.0-450.0 [facility] Comment on above: Performed By: #### V ITAD, FT4, B12FOL, FETIBC ####[facility] Duufsygxbc919[address] [place], [place] [address]Dr. Areli Yousif LACTATE/LACTIC ACIDon 2021 Lactate [Moles/Vol] 0.9 mmol/L Normal 0.4-1.9 [facility] Comment on above: Performed By: #### L ACT ####[facility] Fkhkbmqznd1622 [place] [address]Dr. Areli Yousif POINT OF CARE GLUCOSEon 09-06 Glucose [Mass/Vol] 215 mg/dL Critically high -106 [facility] Comment on above: Performed By: #### P OCGLUC ####[facility] Fwdhzgwrdn0441 [place] [address]Dr. Areli Yousif Glucose [Mass/Vol] 204 mg/dL Critically high -106 [facility] Comment on above: Performed By: #### P OCGLUC ####[facility] Frdhqbitxz5457 [place] [address]Dr. Areli Yousif Glucose [Mass/Vol] 235 mg/dL Critically high -106 [facility] Comment on above: Performed By: #### P OCGLUC ####[facility] Avtpnhjjpt5463 [place] [address]Dr. Areli Yousif PROF CHEM 8 (BAS METB)on Anion gap [Moles/Vol] 15.2 mmol/L Normal [facility] Comment on above: Performed By: #### B MP ####[facility] Xjappqzqke35[address] [place], [place] [address]Dr. Areli Yousif Calcium [Mass/Vol] 8.8 mg/dL Normal 8.5-10.1 [facility] [place] Comment on above: Performed By: #### B MP ####[facility] Fkctcahvqs17[address] [place], [place] [address]Dr. Areli Yousif Chloride [Moles/Vol] 104 mmol/L Normal 98-107 [facility] Comment on above: Performed By: #### B MP ####[facility] Rrelokpshe12[address] [place], [place] [address]Dr. Areli Yousif CO2 [Moles/Vol] 20.1 mmol/L Critically low 21.0-32.0 [facility] Comment on above: Performed By: #### B MP ####[facility] Wxpktiffuq696[address] [place], [place] [address]Dr. Areli Yousif Creatinine [Mass/Vol] 0.96 mg/dL Normal 0.70-1.30 [facility] Comment on above: Performed By: #### B MP ####[facility] Akcoyrbjso280[address] [place], [place] [address]Dr. Areli Yousif EGFR-AF MONEGASQUE >60 Normal >=60 [facility] Comment on above: Performed By: #### B MP ####[facility] Cpetveoedm[address] [place], [place] [address]Dr. Areli Yousif EGFR-NON AF MONEGASQUE >60 Normal >=60 [facility] Comment on above: Performed By: #### B MP ####[facility] Fciyhvgpiz[address] [place], [place] [address]Dr. Areli Yousif Glucose [Mass/Vol] 129 mg/dL Critically high 74-106 [facility] Comment on above: Performed By: #### B MP ####[facility] Xdvvokhubd825[address] [place], [place] [address]Dr. Areli Yousif Potassium [Moles/Vol] 4.3 mmol/L Normal 3.5-5.1 [facility] Comment on above: Performed By: #### B MP ####[facility] Tugbjlrykj67[address] [place], [place] [address]Dr. Areli Yousif Sodium [Moles/Vol] 135 mmol/L Critically low 136-145 [facility] Comment on above: Performed By: #### B MP ####[facility] Zhrlzcerzr73[address] [place], [place] [address]Dr. Areli Yousif Urea nitrogen [Mass/Vol] 29.0 mg/dL Critically high 7.0-18.0 [facility] Comment on above: Performed By: #### B MP ####[facility] Bzbbcqnekd[address] [place], [place] [address]Dr. Areli Yousif Urea nitrogen/Creatinine [Mass ratio] 30.2 mg/mg Normal [facility] Comment on above: Performed By: #### B MP ####[facility] Muzvlhcwsw[address] [place], [place] [address]Dr. Areli Yousif TSHon 10-04-2022 TSH 3.433 uIU/mL Normal 0.358-3.740 [facility] Comment on above: Performed By: #### F T3, TSH ####[facility] Uonbxoaysl80[address] [place], [place] [address]Dr. Areli Yousif VIT B12 AND FOLATEon 022 Cobalamin (Vitamin B12) [Mass/Vol] 263.0 pg/mL Normal 193.0-986.0 [facility] Comment on above: Performed By: #### V ITAD, FT4, B12FOL, FETIBC ####[facility] Eaddesrmzm87[address] [place], [place] [address]Dr. Areli Yousif FOLATE 21.40 ng/mL Normal 8.60-58.90 [facility] Comment on above: Performed By: #### V ITAD, FT4, B12FOL, FETIBC ####[facility] Ujffsobnyp0424 [place] [id number]. Areli Yousif VITAMIN D 25 OHon 10-04-2022 VIT D 25-OH 41.6 ng/mL Normal [facility] Comment on above: Performed By: #### V ITAD, FT4, B12FOL, FETIBC ####[facility] Zckpooiclg3414 [place] [id number]. Areli Yousif VIT D RANGES SEE BELOW Normal [facility] Comment on above: Result Comment: <20 ng/mL Vit D deficient 20 - <30 ng/mL Vit D insufficient 30 - 100 ng/mL Vit D sufficient >100 ng/mL Potential Toxicity Performed By: #### V ITAD, FT4, B12FOL, FETIBC ####[facility] Ecqktsyqoo9039 [place] [id number]. Tabbytulio Yousif CARDIAC ASHLEY ADMITon 022 CK [Catalytic activity/Vol] 49 U/L Normal 39-308 [facility] Comment on above: Performed By: #### Reed GAMBOA, CMP ####[facility] Graaoxaubi0026 [place] [id number]. Areli Yousif CK.MB [Mass/Vol] 1.02 ng/mL Normal <=3.60 [facility] Comment on above: Performed By: #### Reed GAMBOA, CMP ####[facility] Neovvnjmlr4271 [place] [address]Dr. Areli Benja HSTROP 12.8 pg/mL Normal 4.0-76.1 [facility] Comment on above: Result Comment: CUT- OFF POINTS HAVE BEEN ESTABLISHED BASED ON THE FOURTH UNIVERSAL DEFINITIONS OF MYOCARDIALINFARCTION. THE UPPER REFERENCE LIMIT (URL) OF TROPONIN, DEFINED THE 99TH PERCENTILE OFcTnI DISTRIBUTION IN A REFERENCE POPULATION, HAS BEEN CONFIRMED THE DECISION THRESHOLDFOR NV DIAGNOSIS. Performed By: #### Reed GAMBOA, CMP ####[facility] Carwikuuuz4528 [place] [id number]. Areli Yousif LAWRENCE 75 ng/mL Normal 16-96 [facility] Comment on above: Performed By: #### Reed GAMBOA, CMP ####[facility] Dswfxzvgcw9111 [place] [id number]. Areli Yousif CBC AUTO DIFFon 10-03-2022 BASO # 0.0 103/ul Normal 0.0-0.1 [facility] Comment on above: Performed By: #### C BC ####[facility] Thndvmoyvs[address] [place], [place] [address]Dr. Areli Benja Basophils/100 WBC (Bld) 0.4 % Normal 0.2-2.0 [facility] Comment on above: Performed By: #### C BC ####[facility] Iejgireekx850[address] [place], [place] [address]Dr. Areli Yousif EO # 0.4 103/ul Normal 0.0-0.7 [facility] Comment on above: Performed By: #### C BC ####[facility] Fsjgunpzht380[address] [place], [place] [address]Dr. Tabbytulio Yousif Eosinophils/100 WBC (Bld) 3.7 % Normal 0.9-7.0 [facility] Comment on above: Performed By: #### C BC ####[facility] Auydnhspyb[address] [place], [place] [address]Dr. Areli Yousif Erythrocyte distribution width (RBC) [Ratio] 13.5 % Normal 11.0-15.0 [facility] Comment on above: Performed By: #### C BC ####[facility] Yfsxdhieck[address] [place], [place] [address]Dr. Areli Yousif Hematocrit (Bld) [Volume fraction] 33.7 % Critically low 42.0-54.0 [facility] Comment on above: Performed By: #### C BC ####[facility] Mzrouqefty[address] [place], [place] [address]Dr. Areli Yousif Hemoglobin (Bld) [Mass/Vol] 11.2 g/dL Critically low 14.0-18.0 [facility] Comment on above: Performed By: #### C BC ####[facility] Bbsoqpdfix80[address] [place], [place] [address]Dr. Areli Yousif IG # 0.04 10e3/ul Critically high 0.00-0.03 [facility] Comment on above: Performed By: #### C BC ####[facility] Miwezmqtat1250 [place] [id number]. Areli Yousif IG % 0.4 % Normal 0.0-0.5 [facility] Comment on above: Performed By: #### C BC ####[facility] Eoflgeruky7530 [place] [id number]. Areli Yousif LYMPH # 2.9 103/ul Normal 1.2-3.8 [facility] Comment on above: Performed By: #### C BC ####[facility] Efifaznqdn8977 [place] [address]Dr. Tabbytulio Yousif Lymphocytes/100 WBC (Bld) 29.5 % Normal 20.5-60.0 [facility] Comment on above: Performed By: #### C BC ####[facility] Linujjdzqv1560 [place] [address]Dr. Areli Yousif MANUAL DIFF REQ NO Normal [facility] Comment on above: Performed By: #### C BC ####[facility] Fusyigqbwy3316 [place] [id number]. Areli Yousif MCH (RBC) [Entitic mass] 29.8 pg Normal 25.9-34.0 [facility] Comment on above: Performed By: #### C BC ####[facility] Ktjqrkvobw6493 [place] [id number]. Areli Yousif MCHC (RBC) [Mass/Vol] 33.2 g/dL Normal 29.9-35.2 [facility] Comment on above: Performed By: #### C BC ####[facility] Sbsvzwrthe1555 [place] [id number]. Areli Yousif MCV (RBC) [Entitic vol] 89.6 fL Normal 80.0-94.0 [facility] Comment on above: Performed By: #### C BC ####[facility] Xhmucbmifl[address] [place], [place] [id number]. Tabbytulio Yousif MONO # 0.6 103/ul Normal 0.3-0.8 [facility] Comment on above: Performed By: #### C BC ####[facility] Dbvarozjlg3638 [place] [id number]. Areli Yousif Monocytes/100 WBC (Bld) 6.0 % Normal 1.7-12.0 [facility] Comment on above: Performed By: #### C BC ####[facility] Fgjxatswrt6299 [place] [id number]. Areli Yousif NEUT # 5.9 103/ul Normal 1.4-6.5 [facility] Comment on above: Performed By: #### C BC ####[facility] Sqtsuegaty7041 [place] [id number]. Areli Yousif Neutrophils/100 WBC (Bld) 60.0 % Normal 43.0-75.0 [facility] Comment on above: Performed By: #### C BC ####[facility] Sicmalhxtv6902 [place] [id number]. Areli Yousif Platelet mean volume (Bld) [Entitic vol] 11.2 fL Normal 9.5-13.5 [facility] Comment on above: Performed By: #### C BC ####[facility] Lgxkxqdnus6222 [place] [id number]. Areli Yousif PLT 270 103/ul Normal 150-450 [facility] Comment on above: Performed By: #### C BC ####[facility] Uuwebhkfcr9821 [place] [id number]. Areli Yousif RBC 3.76 106/ul Critically low 4.70-6.[address] [facility] Comment on above: Performed By: #### C BC ####[facility] Csejccngde3198 [place] [id number]. Areli Yousif WBC 9.9 103/ul Normal 4.0-11.0 [facility] Comment on above: Performed By: #### C BC ####[facility] [address] [place] [id number]. Areli Yousif CULTURE BLOODon 10-03-2022 Microscopic examination of blood, culture Culture Observations: NO GROWTH AT 5 DAYS. Normal [facility] Comment on above: Performed By: #### B LDCX2 ####[facility] Ijmfsqjnie[address] [place] [address]Dr. Tabbytulio Yousif Performed By: #### B LDCX1 ####[facility] Oqzgvpsudm[address] [place] [address]Dr. Areli Yousif Coding Summaryon 10-03-2022 Coding Summary Normal [facility] Covid-19 PCR (CVDTBH)on 09-06 SARS-CoV-2 (COVID-19) RNA MANSI+probe Ql (Unsp spec) Not detected Normal NOT DETECTED [facility] Comment on above: Result Comment: When diagnostic [...] for this test is supported by the [place] of Health and Human Service's declaration that [...] be used). Performed By: #### C VDTBH ####[facility] Ijcrphrulw[address] [place] [address]Dr. Areli Benja ER URINE PROFILEon Bilirubin Ql (U) Negative Normal NEGATIVE [facility] Comment on above: Performed By: #### JOURDAN RIVERA ####[facility] Khvgbjdzwj[address] [place], [place] [address]Dr. Areli Yousif Clarity (U) CLEAR Normal CLEAR [facility] Comment on above: Performed By: #### JOURDAN RIVERA ####[facility] Hfertvuwlg25[address] [place] [address]Dr. Areli Yousif Color (U) LT. YELLOW Normal YELLOW [facility] Comment on above: Performed By: #### Sid BARKER UMICRO ####[facility] Enyemhgnei[address] [place] [address]Dr. Areli BRIGGS A micrscopic examination will be performed if indicated. Normal [facility] Comment on above: Performed By: #### Sid BARKER UMICRO ####[facility] Rmzrtdvnrm[address] [place] [address]Dr. Areli Yousif Glucose Ql (U) 100 mg/dl Abnormal NEGATIVE [facility] Comment on above: Performed By: #### Sid BARKER UMICRO ####[facility] Pntbmogtem[address] [place], [place] [address]Dr. Areli Yousif Hemoglobin Ql (U) SMALL Abnormal NEGATIVE [facility] Comment on above: Performed By: #### Sid BARKER UMICRO ####[facility] Uzfitxctrq[address] [place], [place] [address]Dr. Areli Yousif Ketones Ql (U) Negative Normal NEGATIVE [facility] Comment on above: Performed By: #### Sid BARKER UMICRO ####[facility] Iibxjxsfwg[address] [place], [place] [address]Dr. Areli Yousif LEUKOCYTES MODERATE Abnormal NEGATIVE [facility] Comment on above: Performed By: #### Sid BARKER UMICRO ####[facility] Dflswbgvnr[address] [place], [place] [address]Dr. Areli Yousif Nitrite Ql (U) Positive Abnormal NEGATIVE [facility] Comment on above: Performed By: #### Sid BARKER UMICRO ####[facility] Fxsfocavzr4[address] [place] [address]Dr. Areli Yousif pH (U) 5.5 [pH] Normal 5-9 [facility] Comment on above: Performed By: #### Sid BARKER UMICRO ####[facility] Kgpvbfefrq[address] [place], [place] [address]Dr. Areli Yousif Protein (U) [Mass/Vol] 100 mg/dL Abnormal NEGAT TIMOTHY/ TRACE [facility] Comment on above: Performed By: #### JOURDAN RIVERA ####[facility] Ojkxhskoel[address] [place] [address]Dr. Areli Yousif SPEC GRAVITY 1.020 Normal 1.005-<=1.02 5 [facility] Comment on above: Performed By: #### JOURDAN RIVERA ####[facility] Dvbzwhgtps[address] [place] [address]Dr. Areli Yousif UR MICRO IND INDICATED Normal [facility] Comment on above: Performed By: #### DWIGHT RIVERARO ####[facility] Tosfugfdiv[address] [place] [address]Dr. Areli Yousif Urobilinogen Qn (U) 0.2 {Alyssia'U}/dL Normal 0.2 - 1. 0 [facility] Comment on above: Performed By: #### JOURDAN RIVERA ####[facility] Obdqrwfhbl67[address] [place] [address]Dr. Areli Yousif LACTATE/LACTIC ACIDon 2021 Lactate [Moles/Vol] 2.2 mmol/L Critically high 0.4-1.9 [facility] Comment on above: Performed By: #### L ACT ####[facility] Lchegxoyrf[address] [place] [address]Dr. Areli Yousif Outside Recordson 10-03-2022 Outside Records [id number] 05 [id number]#1.0 0OTGTIFF [facility] Outside Records [id number]#1.0 [facility] POINT OF CARE GLUCOSEon 09-06 Glucose [Mass/Vol] 280 mg/dL Critically high 74-106 [facility] Comment on above: Performed By: #### P OCGLUC ####[facility] Ksywycrssz47[address] [place] [address]Dr. Areli Yousif Glucose [Mass/Vol] 246 mg/dL Critically high 74-106 [facility] Comment on above: Performed By: #### P OCGLUC ####[facility] Uauaujstpc6[address] [place] [id number]. Areli Yousif PROF 14(COMP METB)on 022 Albumin [Mass/Vol] 2.9 g/dL Critically low 3.4-5.0 [facility] Comment on above: Performed By: #### Reed GAMBOA, CMP ####[facility] Xolyoezvuq07[address] [place] [id number]. Areli Yousif Albumin/Globulin [Mass ratio] 0.8 {ratio} Normal [facility] Comment on above: Performed By: #### Reed GAMBOA, CMP ####[facility] Vktvxwxsym9913 [place] [address]Dr. Areli Yousif ALP [Catalytic activity/Vol] 77 U/L Normal 46-116 [facility] Comment on above: Performed By: #### Reed GAMBOA, CMP ####[facility] Qqbeqkijjp7[address] [place] [address]Dr. Areli Yousif ALT [Catalytic activity/Vol] 11 U/L Critically low 16-63 [facility] Comment on above: Performed By: #### Reed GAMBOA, CMP ####[facility] Mqltlxbuin6338 [place] [id number]. Areli Yousif Anion gap [Moles/Vol] 16.3 mmol/L Normal [facility] Comment on above: Performed By: #### Reed GAMBOA, CMP ####[facility] Qafsbhsmus78[address] [place] [address]Dr. Areli Yousif AST [Catalytic activity/Vol] 13 U/L Critically low 15-37 [facility] Comment on above: Performed By: #### Reed GAMBOA, CMP ####[facility] Kzhkwhwgpn7[address] [place] [id number]. Areli Yousif Bilirubin [Mass/Vol] 0.2 mg/dL Normal 0.2-1.0 [facility] Comment on above: Performed By: #### Reed GAMBOA, CMP ####[facility] Trewutdanc16[address] [place] [address]Dr. Areli Yousif Calcium [Mass/Vol] 9.0 mg/dL Normal 8.5-10.1 [facility] Comment on above: Performed By: #### C BEE, CMP ####[facility] Qcylzzneho1125 [place] [address]Dr. Areli Yousif Chloride [Moles/Vol] 103 mmol/L Normal 98-107 [facility] Comment on above: Performed By: #### C BEE, CMP ####[facility] Czspxuapuk480[address] [place] [address]Dr. Areli Yousif CO2 [Moles/Vol] 20.9 mmol/L Critically low 21.0-32.0 [facility] Comment on above: Performed By: #### C BEE, CMP ####[facility] Gochrfgtmr[address] [place], [place] [address]Dr. Areli Yousif Creatinine [Mass/Vol] 1.29 mg/dL Normal 0.70-1.30 [facility] Comment on above: Performed By: #### Reed GAMBOA, CMP ####[facility] Tqwnczqafo[address] [place], [place] [address]Dr. Areli Yousif EGFR-AF MONEGASQUE >67 Normal >=60 [facility] Comment on above: Performed By: #### Reed GAMBOA, CMP ####[facility] Qplsiathjm6[address] [place], [place] [address]Dr. Areli Yousif EGFR-NON AF MONEGASQUE 55 mL/min/1.73m2 Critically low >=60 [facility] Comment on above: Performed By: #### Reed GAMBOA, CMP ####[facility] Ahmpwakhrx[address] [place], [place] [address]Dr. Areli Yousif Globulin (S) [Mass/Vol] 3.7 g/dL Normal [facility] Comment on above: Performed By: #### C BEE, CMP ####[facility] Wcadnvmylc[address] [place], [place] [address]Dr. Areli Yousif Glucose [Mass/Vol] 245 mg/dL Critically high 74-106 [facility] Comment on above: Performed By: #### C BEE, CMP ####[facility] Gpabclkdil70[address] [place], [place] [address]Dr. Areli Yousif Potassium [Moles/Vol] 5.2 mmol/L Critically high 3.5-5.1 [facility] Comment on above: Performed By: #### C BEE, CMP ####[facility] Pooeujxuiq23[address] [place], [place] [address]Dr. Areli Yousif Protein [Mass/Vol] 6.6 g/dL Normal 6.4-8.2 [facility] [place] Comment on above: Performed By: #### C BEE, CMP ####[facility] Ktmwakrwyd9[address] [place] [address]Dr. Areli Yousif Sodium [Moles/Vol] 135 mmol/L Critically low 136-145 [facility] Comment on above: Performed By: #### Reed GAMBOA, CMP ####[facility] Iqlawnwivf24[address] [place], [place] [address]Dr. Areli Yousif Urea nitrogen [Mass/Vol] 43.0 mg/dL Critically high 7.0-18.0 [facility] Comment on above: Performed By: #### Reed GAMBOA, CMP ####[facility] Mobzvelcuk[address] [place], [place] [address]Dr. Areli Yousif Urea nitrogen/Creatinine [Mass ratio] 33.3 mg/mg Normal [facility] Comment on above: Performed By: #### Reed GAMBOA, CMP ####[facility] Sqcwaipndc[address] [place], [place] [address]Dr. Areli Yousif PROTIMEon 10-03-2022 INR Coag (PPP) [Relative time] 1.06 {INR} Normal [facility] Comment on above: Performed By: #### P T, PTT ####[facility] Uirqsoluif6[address] [place], [place] [address]Dr. Areli Yousif INR GUIDELINES SEE BELOW Normal [facility] Comment on above: Result Comment: LANDON RED INR: 2.0 - 3.0 CONDITIONS NOT LISTED BELOW 2.5 - 3.5 FOR PROSTHETIC HEART VALVE REPLACEMENT 2.5 - 3.5 RECURRENT THROMBOSIS Performed By: #### P T, PTT ####[facility] Mnvztistvg[address] [place], [place] [address]Dr. Areli Yousif PT Coag (PPP) [Time] 11.4 s Normal 9.0-11.6 [facility] Comment on above: Performed By: #### P T, PTT ####[facility] Bqrntvjpjx[address] [place], [place] [address]Dr. Areli Yousif PTTon 10-03-2022 aPTT Coag (Bld) [Time] 25.6 s Normal 22.3-36.2 [facility] Comment on above: Performed By: #### P T, PTT ####[facility] Gaaiuahzcz[address] [place], [place] [address]Dr. Areli Yousif Provider Orderson 10-03-2022 Provider Orders [id number]#1.0 0OTGTIFF Normal [facility] URINE MICROSCOPIC ONLYon BACTERIA LARGE Abnormal NONE SEEN [facility] Comment on above: Performed By: #### DWIGHT RIVREARO ####[facility] Xdlqdviyvh[address] [place], [place] [address]Dr. Areli Yousif Bacteria identified Cx Nom (U) INDICATED Normal [facility] Comment on above: Performed By: #### DWIGHT RIVERARO ####[facility] Jfqfvzobjv[address] [place], [place] [address]Dr. Areli Yousif CAST NONE SEEN Normal NONE SEEN [facility] Comment on above: Performed By: #### Sid BARKER UMICRO ####[facility] Resinmuvch[address] [place], [place] [address]Dr. Areli Yousif Crystals LM Nom (Urine sed) NONE SEEN Normal NONE SEEN [facility] Comment on above: Performed By: #### Sid BARKER UMICRO ####[facility] Dxcmhtkbha[address] [place], [place] [address]Dr. Areli Yousif Epithelial cells LM Ql (Urine sed) FEW Abnormal NONE SEEN /RARE [facility] Comment on above: Performed By: #### Sid BARKER UMICRO ####[facility] Zjogvdivlq[address] [place], [place] [address]Dr. Areli Yousif MUCOUS TRACE Abnormal NONE SEEN [facility] Comment on above: Performed By: #### JOURDAN RIVERA ####[facility] Xtzins[address]wj24[address] [place], [place] [address]Id. Areli Yousif RBC 10-20 Abnormal 0-2 [facility] Comment on above: Performed By: #### JOURDAN RIVERA ####[facility] Oy[address]ovhcxc[address] [place], [place] [address]Ss. Areli Yousif WBC 20-50 Abnormal NONE SEEN [facility] Comment on above: Performed By: #### JOURDAN RIVERA ####[facility] Dxwwucmgjl13[address] [place], [place] [address]Zj. Areli Yousif XR CHEST 1 Von 10-03-2022 XR CHEST 1 V Normal [facility] XR HUMERUS RT MIN 2 Von 09-06 XR HUMERUS RT MIN 2 V Normal [facility] XR SHOULDER RT 2V or >on XR SHOULDER RT 2V or > Normal [facility] Outside Recordson 10-01-2022 Outside Records [id number] 32 [id number]#1.0 [facility] Outside Records [id number]#1.0 [facility] XR shoulder RT min 2V*on XR shoulder RT min 2V* [facility] [employer] Other XR shoulder RT min 2V* [facility] [employer] Other XR shoulder RT min 2V* [address] [place] [address] [employer] Other XR shoulder RT min 2V* [place], [place] [address] [place] [address] [employer] Other XR shoulder RT min 2V* XRay Report N [facility] [employer] Other XR shoulder RT min 2V* [facility] Other XR shoulder RT min 2V* Patient: Otilio Suarez MR#: [id number] DGSE Other XR shoulder RT min 2V* 3 No rt E Ink Other XR shoulder RT min 2V* : 1955 Acct:[id number] DG[facility] Other XR shoulder RT min 2V* Age/Sex: 66 / M A DM Date: 10/01/22 DG[facility] Other XR shoulder RT min 2V* Loc: XDUCLY Room: Type: REG CLI DGSE Other XR shoulder RT min 2V* Attending Dr: Lorene Norris [facility] DGSE Other XR shoulder RT min 2V* Copies to: Ana Norris [facility] DGSE Other XR shoulder RT min 2V* Ordering Provider : Ana Norris EMERGENCY ROOM SPECIALIST DGSE Other XR shoulder RT min 2V* Date of Service: 10/01/22 DGSE Other XR shoulder RT min 2V* XR/XR shoulder RT min 2V*: Injury DGSE Other XR shoulder RT min 2V* 3 views plain filmright shoulder DGSE Other XR shoulder RT min 2V* HISTORY:Fell inju ring right shoulder. Limited range of motion. DGSE Other XR shoulder RT min 2V* COMPARISON:None [facility] Other XR shoulder RT min 2V* Potential nondisp laced fracture of the greater tuberosity identified. Calcific changes of the DGSE Other XR shoulder RT min 2V* rotator cuff pres ent. No fracture of the distal clavicle identified.Mild degenerative changes. DGSE Other XR shoulder RT min 2V* 0 XR/XR shoulder RT min 2V* DGSE Other XR shoulder RT min 2V* IMPRESSION:Fractu re of distal clavicle. Potential nondisplaced fracture of greater tuberosity. DGSE Other XR shoulder RT min 2V* Calcific tendinop athy of rotator cuff. DGSE Other XR shoulder RT min 2V* Impression dictat ed by: Adalberto Moctezuma M.D.10/01/2022 11:11 AM DGSE Other XR shoulder RT min 2V* Dictation Locatio n: RADIO-PC-12 DGSE Other XR shoulder RT min 2V* Transcribed By: Priscilla HENDRIX 10/01/22 1111 DGSE Other XR shoulder RT min 2V* Dictated By: Adalberto Moctezuma DO 10/01/22 1108 DGSE Other XR shoulder RT min 2V* Signed By: No rt E Ink Other XR shoulder RT min 2V* 10/01/22 1111 DGSE Other XR shoulder RT min 2V* [facility] Main [place] [address] [place] [address] XRay Report Signed Patient: Otilio Suarez MR#: [id number] 3 : 1955 Acct:[id number] Age/Sex: 66 / M ADM Date: 10/01/22 Loc: XDUCLY Room: [facility] Attending Dr: Ana Norris APRN Copies [...] Adalberto Moctezuma M.D.10/01/2022 11:11 AM Dictation Location: [place] [address] Transcribed By: [place] 10/01/22 1111 Dictated By: Adalberto Moctezuma DO 10/01/22 1108 Signed By: 10/01/22 1111 [facility] Office/Clinic Noteon 022 Office/Clinic Note [facility] Coding Summaryon 09-18-2022 [facility] Record [facility] POCT Glucose Levelon 022 Glucose [Mass/Vol] 283 mg/dL High [address] [place] [address] Comment on above: Performed By: #### 4 [id number] ####[facility] (DEFAULT)[address] [place] [address] Progress Note - Nurseon 09-04 Progress Note - Nurse [facility] Inpatient Clinical Summaryon 09-16-2022 Inpatient Clinical Summary [facility] Inpatient Patient Summaryon 09-16-2022 Inpatient Patient Summary [facility] Outside Recordson 09-16-2022 Outside Records [id number]#1.0 0OTGTIFF [facility] Patient Handouton 09-16-2022 Patient Handout [facility] POCT Glucose Levelon 022 Glucose, POC see comment Invalid Interpretation Code [address] [place] [address] Comment on above: Result Comment: Dupl icate result removed during lab audit. SD 09/11/2022 10:20:39 EST Performed By: #### 4 [id number] ####[facility] (DEFAULT)[address] [place] [id number] Glucose, POC see coment Invalid Interpretation Code [address] [place] [address] Comment on above: Result Comment: Dupl icate result removed during lab audit. SD 09/11/2022 10:20:39 EST Performed By: #### 4 [id number] ####[facility] (DEFAULT)[address] [place] [address] Outside Recordson 09-10-2022 Outside Records [id number]#1.0 0OTGTIFF [facility] Outside Recordson 09-01-2022 Outside Records [id number]#1.0 0OTGTIFF [facility] Outside Recordson 08-22-2022 Outside Records [id number]#1.0 0OTGTIFF [facility] Coding Summaryon 08-21-2022 Coding Summary [facility] Progress Note - Provideron 1 10-21-2021 Progress Note - Provider [id number]#1.00 OTGTIFF [facility] Office/Clinic Noteon 022 Office/Clinic Note [facility] Outside Recordson 08-20-2022 Outside Records [id number]#1. 00OTGTIFF [facility] Coding Summaryon 08-19-2022 Coding Summary [facility] Outside Recordson 08-19-2022 Outside Records [id number]#1.0 0OTGTIFF [facility] Phone Message/Callon 022 Phone Message/Call [facility] CULTURE URINEon 08-16-2022 CULTURE URINE Normal [facility] Comment on above: Performed By: #### U RCX ####[facility] [address]rknm[address] [place], [place] [address]HuDenae Areli Yousif BNPon 08-15-2022 Natriuretic peptide B (Bld) [Mass/Vol] 874.0 pg/mL Normal <=900.0 [facility] Comment on above: Performed By: #### C MP, CMADM, BNP ####[facility] Gxbelfdzol[address] [place] [address]Dr. Areli Benja CARDIAC ASHLEY ADMITon 022 CK [Catalytic activity/Vol] 28 U/L Critically low 39-308 [facility] Comment on above: Performed By: #### C MP, CMADM, BNP ####[facility] Oxyzhbdfhc[address] [place] [address]Dr. Areli Yousif CK.MB [Mass/Vol] 1.11 ng/mL Normal <=3.60 [facility] Comment on above: Performed By: #### C MP, CMADM, BNP ####[facility] Ncccsvxaci22[address] [place] [address]Dr. Areli Benja HSTROP 14.4 pg/mL Normal 4.0-76.1 [facility] Comment on above: Result Comment: CUT- OFF POINTS HAVE BEEN ESTABLISHED BASED ON THE FOURTH UNIVERSAL DEFINITIONS OF MYOCARDIALINFARCTION. THE UPPER REFERENCE LIMIT (URL) OF TROPONIN, DEFINED THE 99TH PERCENTILE OFcTnI DISTRIBUTION IN A REFERENCE POPULATION, HAS BEEN CONFIRMED THE DECISION THRESHOLDFOR [place] DIAGNOSIS. Performed By: #### C MP, CMADM, BNP ####[facility] Nxhnpghwnc42[address] [place] [address]Dr. Areli Yousif LAWRENCE 63 ng/mL Normal 16-96 [facility] Comment on above: Performed By: #### C MP, CMADM, BNP ####[facility] Jiarjraqjw68[address] [place] [address]DrDenae Yousif CBC AUTO DIFFon 08-15-2022 BASO # 0.1 103/ul Normal 0.0-0.1 [facility] Comment on above: Performed By: #### C BC ####[facility] Cxhiigplhy0484 [place] [address]DrDenae Yousif Basophils/100 WBC (Bld) 0.5 % Normal 0.2-2.0 [facility] Comment on above: Performed By: #### C BC ####[facility] Qivvkirikx1339 [place] [address]Dr. Areli Yousif EO # 0.2 103/ul Normal 0.0-0.7 [facility] Comment on above: Performed By: #### C BC ####[facility] Psclmujxvh1409 [place] [address]Dr. Areli Yousif Eosinophils/100 WBC (Bld) 2.5 % Normal 0.9-7.0 [facility] Comment on above: Performed By: #### C BC ####[facility] Frxrsnofub8547 [place] [address]Dr. Areli Yousif Erythrocyte distribution width (RBC) [Ratio] 13.7 % Normal 11.0-15.0 [facility] Comment on above: Performed By: #### C BC ####[facility] Wtyuizjrxu[address] [place], [place] [address]Dr. Areli Yousif Hematocrit (Bld) [Volume fraction] 32.0 % Critically low 42.0-54.0 [facility] Comment on above: Performed By: #### C BC ####[facility] Dehntiojse[address] [place], [place] [address]Dr. Areli Yousif Hemoglobin (Bld) [Mass/Vol] 10.3 g/dL Critically low 14.0-18.0 [facility] Comment on above: Performed By: #### C BC ####[facility] Vrkijewomv[address] [place], [place] [address]Dr. Areli Yuosif IG # 0.05 10e3/ul Critically high 0.00-0.03 [facility] Comment on above: Performed By: #### C BC ####[facility] Psaqmensyv39[address] [place] [address]Dr. Areli Yousif IG % 0.5 % Normal 0.0-0.5 [facility] Comment on above: Performed By: #### C BC ####[facility] Zguhgpswgo[address] [place], [place] [address]Dr. Areli Yousif LYMPH # 2.7 103/ul Normal 1.2-3.8 [facility] Comment on above: Performed By: #### C BC ####[facility] S[address]pcqrl[address] [place], [place] [address]Dr. Areli Yousif Lymphocytes/100 WBC (Bld) 29.1 % Normal 20.5-60.0 [facility] Comment on above: Performed By: #### C BC ####[facility] Odzhgjzduy[address] [place] [address]Dr. Areli Yousif MANUAL DIFF REQ NO Normal [facility] Comment on above: Performed By: #### C BC ####[facility] Wyecoyzoqn8428 [place] [address]Dr. Areli Yousif MCH (RBC) [Entitic mass] 29.3 pg Normal 25.9-34.0 [facility] Comment on above: Performed By: #### C BC ####[facility] Rsakbogrvg[address] [place], [place] [address]Dr. Areli Yousif MCHC (RBC) [Mass/Vol] 32.2 g/dL Normal 29.9-35.2 [facility] Comment on above: Performed By: #### C BC ####[facility] Tklaobopqi[address] [place], [place] [address]Dr. Areli Yousif MCV (RBC) [Entitic vol] 90.9 fL Normal 80.0-94.0 [facility] Comment on above: Performed By: #### C BC ####[facility] Osackrwweb[address] [place], [place] [address]Dr. Areli Yousif MONO # 0.7 103/ul Normal 0.3-0.8 [facility] Comment on above: Performed By: #### C BC ####[facility] Gojwmdbqkt39[address] [place], [place] [address]Dr. Areli Yousif Monocytes/100 WBC (Bld) 7.3 % Normal 1.7-12.0 [facility] Comment on above: Performed By: #### C BC ####[facility] Orzivoeyba[address] [place], [place] [address]Dr. Areli Yousif NEUT # 5.6 103/ul Normal 1.4-6.5 [facility] Comment on above: Performed By: #### C BC ####[facility] Ctoorxiaev[address] [place], [place] [address]Dr. Areli Yousif Neutrophils/100 WBC (Bld) 60.1 % Normal 43.0-75.0 [facility] Comment on above: Performed By: #### C BC ####[facility] Ttuhliblhc1642 [place] [address]Dr. Areli Yousif Platelet mean volume (Bld) [Entitic vol] 10.7 fL Normal 9.5-13.5 [facility] Comment on above: Performed By: #### C BC ####[facility] Bcjmqafrgq5[address] [place] [address]Dr. Areli Yousif PLT 283 103/ul Normal 150-450 [facility] Comment on above: Performed By: #### C BC ####[facility] Rpicmltohc8192 [place] [address]Dr. Areli Yousif RBC 3.52 106/ul Critically low 4.70-6.10 [facility] Comment on above: Performed By: #### C BC ####[facility] Ialpwvarcn[address] [place], [place] [address]Dr. Areli Yousif WBC 9.3 103/ul Normal 4.0-11.0 [facility] Comment on above: Performed By: #### C BC ####[facility] Rdyhudybnx[address] [place] [address]Dr. Areli Yousif POINT OF CARE GLUCOSEon 08-05 Glucose [Mass/Vol] 245 mg/dL Critically high 74-106 [facility] Comment on above: Performed By: #### P OCGLUC ####[facility] Howmosfvbn[address] [place] [address]Dr. Areli Yousif Glucose [Mass/Vol] 158 mg/dL Critically high 74-106 [facility] Comment on above: Performed By: #### P OCGLUC ####[facility] Kajdyaqjfi[address] [place] [address]Dr. Areli Benja PROF 14(COMP METB)on 022 Albumin [Mass/Vol] 2.9 g/dL Critically low 3.4-5.0 [facility] Comment on above: Performed By: #### C MP, CMADM, BNP ####[facility] Ugpjkaaawr[address] [place] [address]Dr. Areli Yousif Albumin/Globulin [Mass ratio] 0.8 {ratio} Normal [facility] Comment on above: Performed By: #### C MP, CMADM, BNP ####[facility] Rvghfnztyb9[address] [place] [address]Dr. Areli Yousif ALP [Catalytic activity/Vol] 62 U/L Normal 46-116 [facility] Comment on above: Performed By: #### C MP, CMADM, BNP ####[facility] Ibmthaklim5[address] [place] [address]Dr. Areli Yousif ALT [Catalytic activity/Vol] 15 U/L Critically low 16-63 [facility] Comment on above: Performed By: #### C MP, CMADM, BNP ####[facility] Thxzjbckyx20[address] [place] [address]Dr. Areli Yousif Anion gap [Moles/Vol] 13.5 mmol/L Normal [facility] Comment on above: Performed By: #### C MP, CMADM, BNP ####[facility] Ugoxvfgymk5[address] [place] [address]Dr. Areli Yousif AST [Catalytic activity/Vol] 8 U/L Critically low 15-37 [facility] Comment on above: Performed By: #### C MP, CMADM, BNP ####[facility] Tzzckissik74[address] [place] [address]Dr. Areli Yousif Bilirubin [Mass/Vol] 0.2 mg/dL Normal 0.2-1.0 [facility] Comment on above: Performed By: #### C MP, CMADM, BNP ####[facility] Slhdcgmyrf[address] [place] [address]Dr. Areli Yousif Calcium [Mass/Vol] 8.5 mg/dL Normal 8.5-10.1 [facility] [place] Comment on above: Performed By: #### C MP, CMADM, BNP ####[facility] Pjwxxyrfbb6295 [place] [address]Dr. Areli Yousif Chloride [Moles/Vol] 105 mmol/L Normal 98-107 [facility] Comment on above: Performed By: #### C MP, CMADM, BNP ####[facility] Eurykquhka[address] [place] [address]Dr. Areli Yousif CO2 [Moles/Vol] 22.8 mmol/L Normal 21.0-32.0 [facility] Comment on above: Performed By: #### C MP, CMADM, BNP ####[facility] Xxzmtztkhz3101 [place] [address]Dr. Areli Yousif Creatinine [Mass/Vol] 1.09 mg/dL Normal 0.70-1.30 [facility] Comment on above: Performed By: #### C MP, CMADM, BNP ####[facility] Qgwadpwcnr6088 [place] [address]Dr. Tabbytulio Benja EGFR-AF MONEGASQUE >60 Normal >=60 [facility] Comment on above: Performed By: #### C MP, CMADM, BNP ####[facility] Nxvesivyot5254 [place] [address]Dr. Areli Benja EGFR-NON AF MONEGASQUE >60 Normal >=60 [facility] Comment on above: Performed By: #### C MP, CMADM, BNP ####[facility] Sgepbkwqaj5030 [place] [address]Dr. Areli Benja Globulin (S) [Mass/Vol] 3.6 g/dL Normal [facility] Comment on above: Performed By: #### C MP, CMADM, BNP ####[facility] Msfiqxzeug0733 [place] [address]Dr. Tabbytulio Benja Glucose [Mass/Vol] 155 mg/dL Critically high 74-106 [facility] Comment on above: Performed By: #### C MP, CMADM, BNP ####[facility] Lupoumaqqx0271 [place] [address]Dr. Tabbytulio Benja Potassium [Moles/Vol] 4.3 mmol/L Normal 3.5-5.1 [facility] Comment on above: Performed By: #### C MP, CMADM, BNP ####[facility] Wwpshxasnn5907 [place] [address]Dr. Areli Yousif Protein [Mass/Vol] 6.5 g/dL Normal 6.4-8.2 [facility] Comment on above: Performed By: #### C MP, CMADM, BNP ####[facility] Iajeobpucn5502 [place] [address]Dr. Areli Yousif Sodium [Moles/Vol] 137 mmol/L Normal 136-145 [facility] Comment on above: Performed By: #### C MP, CMADM, BNP ####[facility] Xynfxlvhmh0016 [place] [address]Dr. Areli Yousif Urea nitrogen [Mass/Vol] 41.0 mg/dL Critically high 7.0-18.0 [facility] Comment on above: Performed By: #### C MP, CMADM, BNP ####[facility] Ysymfxxpmi38[address] [place], [place] [address]Dr. Areli Yousif Urea nitrogen/Creatinine [Mass ratio] 37.6 mg/mg Normal [facility] Comment on above: Performed By: #### C MP, CMADM, BNP ####[facility] Puiwpfeiao[address] [place], [place] [address]Dr. Areli Yousif BNPon 08-14-2022 Natriuretic peptide B (Bld) [Mass/Vol] 866.0 pg/mL Normal <=900.0 [facility] Comment on above: Performed By: #### B TOUCH UP CARVER, CMP, CMADM ####[facility] Vwmczeouai9[address] [place] [address]Dr. Areli Yousif CARDIAC ASHLEY ADMITon 022 CK [Catalytic activity/Vol] 43 U/L Normal 39-308 [facility] Comment on above: Performed By: #### B TOUCH UP CARVER, CMP, CMADM ####[facility] Nkwuhmocnn[address] [place], [place] [address]Dr. Areli Yousif CK.MB [Mass/Vol] 1.62 ng/mL Normal <=3.60 [facility] Comment on above: Performed By: #### B TOUCH UP CARVER, CMP, CMADM ####[facility] Wjgxwhohgv[address] [place], [place] [address]Dr. Areli Yousif HSTROP 14.8 pg/mL Normal 4.0-76.1 [facility] Comment on above: Result Comment: CUT- OFF POINTS HAVE BEEN ESTABLISHED BASED ON THE FOURTH UNIVERSAL DEFINITIONS OF MYOCARDIALINFARCTION. THE UPPER REFERENCE LIMIT (URL) OF TROPONIN, DEFINED THE 99TH PERCENTILE OFcTnI DISTRIBUTION IN A REFERENCE POPULATION, HAS BEEN CONFIRMED THE DECISION THRESHOLDFOR [place] DIAGNOSIS. Performed By: #### B TOUCH UP CARVER, CMP, CMADM ####[facility] Cbughrxqad4379 [place] [address]Dr. Areli Yousif LAWRENCE 81 ng/mL Normal 16-96 [facility] Comment on above: Performed By: #### B TOUCH UP CARVER, CMP, CMADM ####[facility] Myuhupfmld8239 [place] [address]Dr. Areli Yousif CBC AUTO DIFFon 08-14-2022 BASO # 0.0 103/ul Normal 0.0-0.1 [facility] Comment on above: Performed By: #### C BC ####[facility] Tfrqwwyzrg8907 [place] [address]Dr. Areli Yousif Basophils/100 WBC (Bld) 0.4 % Normal 0.2-2.0 [facility] Comment on above: Performed By: #### C BC ####[facility] Unnkjlqenv0545 [place] [address]Dr. Areli Yousif EO # 0.3 103/ul Normal 0.0-0.7 [facility] Comment on above: Performed By: #### C BC ####[facility] Jreqrtycpu1116 [place] [address]Dr. Areli Yousif Eosinophils/100 WBC (Bld) 2.5 % Normal 0.9-7.0 [facility] Comment on above: Performed By: #### C BC ####[facility] Zbfgbsctkp1312 [place] [address]Dr. Areli Yousif Erythrocyte distribution width (RBC) [Ratio] 13.9 % Normal 11.0-15.0 [facility] Comment on above: Performed By: #### C BC ####[facility] Mecgjzcqae4391 [place] [address]Dr. Areli Yousif Hematocrit (Bld) [Volume fraction] 34.9 % Critically low 42.0-54.0 [facility] Comment on above: Performed By: #### C BC ####[facility] Cpdtxycwol6546 [place] [address]Dr. Areli Benja Hemoglobin (Bld) [Mass/Vol] 11.3 g/dL Critically low 14.0-18.0 [facility] Comment on above: Performed By: #### C BC ####[facility] Klvnugqztp2717 [place] [address]Dr. Areli Yousif IG # 0.02 10e3/ul Normal 0.00-0.03 [facility] Comment on above: Performed By: #### C BC ####[facility] Vsybnlwpvs[address] [place], [place] [address]Dr. Areli Yousif IG % 0.2 % Normal 0.0-0.5 [facility] Comment on above: Performed By: #### C BC ####[facility] Xchorbjuib2168 [place] [address]Dr. Areli Yousif LYMPH # 3.4 103/ul Normal 1.2-3.8 [facility] Comment on above: Performed By: #### C BC ####[facility] Plkgmsfzhe5461 [place] [address]Dr. Areli Yousif Lymphocytes/100 WBC (Bld) 34.6 % Normal 20.5-60.0 [facility] Comment on above: Performed By: #### C BC ####[facility] Lhsnriczmt7709 [place] [address]Dr. Tabbytulio Yousif MANUAL DIFF REQ NO Normal [facility] Comment on above: Performed By: #### C BC ####[facility] Xvracwlidv[address] [place], [place] [address]Dr. Areli Benja MCH (RBC) [Entitic mass] 29.4 pg Normal 25.9-34.0 [facility] Comment on above: Performed By: #### C BC ####[facility] Rdnurodexp[address] [place], [place] [id number]. Areli Yousif MCHC (RBC) [Mass/Vol] 32.4 g/dL Normal 29.9-35.2 [facility] Comment on above: Performed By: #### C BC ####[facility] Dgnjrejtqy9439 [place] [id number]. Areli Yousif MCV (RBC) [Entitic vol] 90.9 fL Normal 80.0-94.0 [facility] Comment on above: Performed By: #### C BC ####[facility] Vlrainbqov4885 [place] [id number]. Areli Benja MONO # 0.7 103/ul Normal 0.3-0.8 [facility] Comment on above: Performed By: #### C BC ####[facility] Glumoeracz[address] [place], [place] [address]Dr. Areli Yousif Monocytes/100 WBC (Bld) 6.7 % Normal 1.7-12.0 [facility] Comment on above: Performed By: #### C BC ####[facility] Nzhtebxpwx[address] [place], [place] [address]Dr. Areli Benja NEUT # 5.5 103/ul Normal 1.4-6.5 [facility] Comment on above: Performed By: #### C BC ####[facility] Pcgpcjbere[address] [place], [place] [id number]. Areli Benja Neutrophils/100 WBC (Bld) 55.6 % Normal 43.0-75.0 [facility] Comment on above: Performed By: #### C BC ####[facility] Wvmibzkdfr5289 [place] [address]Dr. Areli Benja Platelet mean volume (Bld) [Entitic vol] 10.1 fL Normal 9.5-13.5 [facility] Comment on above: Performed By: #### C BC ####[facility] Uvumyxcopj1261 [place] [id number]. Areli Benja PLT 270 103/ul Normal 150-450 [facility] Comment on above: Performed By: #### C BC ####[facility] Auosdmfkzf0893 [place] [id number]. Areli Yousif RBC 3.84 106/ul Critically low 4.70-6.10 [facility] Comment on above: Performed By: #### C BC ####[facility] Qcvmsxijsq1999 [place] [address]Dr. Areli Yousif WBC 10.0 103/ul Normal 4.0-11.0 [facility] Comment on above: Performed By: #### C BC ####[facility] Qcpvydkqvc9694 [place] [address]Dr. Areli Yousif CTA NECK WO W CONon 08-14-20 CTA NECK WO W CON Normal [facility] ECHOCARDIO M/2D COMPLETEon 10-14-2021 ECHOCARDIO M/2D COMPLETE Normal [facility] POINT OF CARE GLUCOSEon 08-05 Glucose [Mass/Vol] 386 mg/dL Critically high 74-106 [facility] Comment on above: Performed By: #### P OCGLUC ####[facility] Getciiydxt9050 [place] [address]Dr. Areli Yousif Glucose [Mass/Vol] 234 mg/dL Critically high 74-106 [facility] Comment on above: Performed By: #### P OCGLUC ####[facility] Bjxjnpkwae8886 [place] [address]Dr. Areli Yousif Glucose [Mass/Vol] 146 mg/dL Critically high 74-106 [facility] Comment on above: Performed By: #### P OCGLUC ####[facility] Cwlgeaqyuc4965 [place] [address]Dr. Areli Benja PROF 14(COMP METB)on 022 Albumin [Mass/Vol] 3.0 g/dL Critically low 3.4-5.0 [facility] Comment on above: Performed By: #### B TOUCH UP CARVER, CMP, CMADM ####[facility] Hsagqawcts0042 [place] [address]Dr. Areli Yousif Albumin/Globulin [Mass ratio] 0.8 {ratio} Normal [facility] Comment on above: Performed By: #### B TOUCH UP CARVER, CMP, CMADM ####[facility] Ivrrpndebd8840 [place] [id number]. Areli Yousif ALP [Catalytic activity/Vol] 69 U/L Normal 46-116 [facility] Comment on above: Performed By: #### B TOUCH UP CARVER, CMP, CMADM ####[facility] Eruahlaizl7250 [place] [id number]. Areli Yousif ALT [Catalytic activity/Vol] 12 U/L Critically low 16-63 [facility] Comment on above: Performed By: #### B TOUCH UP CARVER, CMP, CMADM ####[facility] Punhrdchyd7616 [place] [address]Dr. Areli Yousif Anion gap [Moles/Vol] 10.8 mmol/L Normal [facility] Comment on above: Performed By: #### B TOUCH UP CARVER, CMP, CMADM ####[facility] Ucppyhlhee0971 [place] [address]Dr. Areli Yousif AST [Catalytic activity/Vol] 8 U/L Critically low 15-37 [facility] Comment on above: Performed By: #### B TOUCH UP CARVER, CMP, CMADM ####[facility] Olhjmnjygo7994 [place] [address]Dr. Areli Yousif Bilirubin [Mass/Vol] 0.3 mg/dL Normal 0.2-1.0 [facility] Comment on above: Performed By: #### B TOUCH UP CARVER, CMP, CMADM ####[facility] Qubjyixtmx1488 [place] [address]Dr. Areli Yousif Calcium [Mass/Vol] 8.8 mg/dL Normal 8.5-10.1 [facility] [place] Comment on above: Performed By: #### B TOUCH UP CARVER, CMP, CMADM ####[facility] Slctkfrvqy4569 [place] [address]Dr. Areli Yousif Chloride [Moles/Vol] 104 mmol/L Normal 98-107 [facility] Comment on above: Performed By: #### B TOUCH UP CARVER, CMP, CMADM ####[facility] Dogxkqyyaw5324 [place] [address]Dr. Areli Yousif CO2 [Moles/Vol] 24.6 mmol/L Normal 21.0-32.0 [facility] Comment on above: Performed By: #### B TOUCH UP CARVER, CMP, CMADM ####[facility] Jcrmuxvpnt0022 [place] [address]Dr. Areli Yousif Creatinine [Mass/Vol] 1.07 mg/dL Normal 0.70-1.30 [facility] Comment on above: Performed By: #### B TOUCH UP CARVER, CMP, CMADM ####[facility] Csoxbgcvcn8603 [place] [id number]. Areli Yousif EGFR-AF MONEGASQUE >60 Normal >=60 [facility] Comment on above: Performed By: #### B TOUCH UP CARVER, CMP, CMADM ####[facility] Txvvjchake3437 [place] [address]Dr. Areli Yousif EGFR-NON AF MONEGASQUE >60 Normal >=60 [facility] Comment on above: Performed By: #### B TOUCH UP CARVER, CMP, CMADM ####[facility] Qfymzrmauy9346 [place] [address]Dr. Areli Yousif Globulin (S) [Mass/Vol] 3.8 g/dL Normal [facility] Comment on above: Performed By: #### B TOUCH UP CARVER, CMP, CMADM ####[facility] Dhxuenipfk0326 [place] [address]Dr. Areli Yousif Glucose [Mass/Vol] 90 mg/dL Normal 74-106 [facility] Comment on above: Performed By: #### B TOUCH UP CARVER, CMP, CMADM ####[facility] Hmsjjbjarq6998 [place] [phone]. Areli Yousif Potassium [Moles/Vol] 4.4 mmol/L Normal 3.5-5.1 [facility] Comment on above: Performed By: #### B TOUCH UP CARVER, CMP, CMADM ####[facility] Fiixksilzd1305 [place] [address]Dr. Areli Yousif Protein [Mass/Vol] 6.8 g/dL Normal 6.4-8.2 [facility] Comment on above: Performed By: #### B TOUCH UP CARVER, CMP, CMADM ####[facility] Uznphzcwqg2277 [place] [address]Dr. Areli Yousif Sodium [Moles/Vol] 135 mmol/L Critically low 136-145 [facility] Comment on above: Performed By: #### B TOUCH UP CARVER, CMP, CMADM ####[facility] Syuhydjjxt6687 [place] [address]Dr. Areli Yousif Urea nitrogen [Mass/Vol] 38.0 mg/dL Critically high 7.0-18.0 [facility] Comment on above: Performed By: #### B TOUCH UP CARVER, CMP, CMADM ####[facility] Watapnmvci9986 [place] [address]Dr. Areli Yousif Urea nitrogen/Creatinine [Mass ratio] 35.5 mg/mg Normal [facility] Comment on above: Performed By: #### B TOUCH UP CARVER, CMP, CMADM ####[facility] Adrrcwgixf2580 [place] [address]Dr. Areli Yousif BNPon 08-13-2022 Natriuretic peptide B (Bld) [Mass/Vol] 963.0 pg/mL Critically high <=900.0 [facility] Comment on above: Performed By: #### L IPA, CMADM, BNP, CMP ####[facility] Vvvcofkqbm6013 [place] [address]Dr. Areli Yousif CARDIAC ASHLEY ADMITon 022 CK [Catalytic activity/Vol] 48 U/L Normal 39-308 [facility] Comment on above: Performed By: #### L IPA, CMADM, BNP, CMP ####[facility] Wfggjhmpse9721 [place] [address]Dr. Areli Benja CK.MB [Mass/Vol] 1.17 ng/mL Normal <=3.60 [facility] Comment on above: Performed By: #### L IPA, CMADM, BNP, CMP ####[facility] Isrqmhfsvl7[address] [place], [place] [address]Dr. Areli Yousif HSTROP 14.9 pg/mL Normal 4.0-76.1 [facility] Comment on above: Result Comment: CUT- OFF POINTS HAVE BEEN ESTABLISHED BASED ON THE FOURTH UNIVERSAL DEFINITIONS OF MYOCARDIALINFARCTION. THE UPPER REFERENCE LIMIT (URL) OF TROPONIN, DEFINED THE 99TH PERCENTILE OFcTnI DISTRIBUTION IN A REFERENCE POPULATION, HAS BEEN CONFIRMED THE DECISION THRESHOLDFOR [place] DIAGNOSIS. Performed By: #### L IPA, CMADM, BNP, CMP ####[facility] Ylnolxgrvd2594 [place] [address]Dr. Areli Yousif LAWRENCE 86 ng/mL Normal 16-96 [facility] Comment on above: Performed By: #### L IPA, CMADM, BNP, CMP ####[facility] Wkqepkigno7228 [place] [address]Dr. Tabbytulio Yousif CBC AUTO DIFFon 08-13-2022 BASO # 0.0 103/ul Normal 0.0-0.1 [facility] Comment on above: Performed By: #### C BC ####[facility] Kyktvkhetb[address] [place], [place] [address]Dr. Areli Yousif Basophils/100 WBC (Bld) 0.3 % Normal 0.2-2.0 [facility] Comment on above: Performed By: #### C BC ####[facility] Dgnajjwnfx[address] [place], [place] [address]Dr. Tabbytulio Yousif EO # 0.2 103/ul Normal 0.0-0.7 [facility] Comment on above: Performed By: #### C BC ####[facility] Mogbixepnx7[address] [place], [place] [address]Dr. Tabbytulio Yousif Eosinophils/100 WBC (Bld) 2.2 % Normal 0.9-7.0 [facility] Comment on above: Performed By: #### C BC ####[facility] Lkdwwhmlrt14[address] [place], [place] [address]Dr. Tabbytulio Yousif Erythrocyte distribution width (RBC) [Ratio] 13.9 % Normal 11.0-15.0 [facility] Comment on above: Performed By: #### C BC ####[facility] Sdrufrkqsm01[address] [place], [place] [address]Dr. Areli Yousif Hematocrit (Bld) [Volume fraction] 34.4 % Critically low 42.0-54.0 [facility] Comment on above: Performed By: #### C BC ####[facility] Elgtexiwjt0377 [place] [phone]. Areli Yousif Hemoglobin (Bld) [Mass/Vol] 11.1 g/dL Critically low 14.0-18.0 [facility] Comment on above: Performed By: #### C BC ####[facility] Iefrttdhwm7050 [place] [phone]. Areli Yousif IG # 0.06 10e3/ul Critically high 0.00-0.03 [facility] Comment on above: Performed By: #### C BC ####[facility] Jeppvzmnrd0107 [place] [address]Dr. Areli Yousif IG % 0.6 % Critically high 0.0-0.[address] [facility] Comment on above: Performed By: #### C BC ####[facility] Blsqonwvcm[address] [place], [place] [address]Dr. Areli Yousif LYMPH # 3.2 103/ul Normal 1.2-3.8 [facility] Comment on above: Performed By: #### C BC ####[facility] Xceogghylu[address] [place], [place] [address]Dr. Areli Yousif Lymphocytes/100 WBC (Bld) 29.5 % Normal 20.5-60.0 [facility] Comment on above: Performed By: #### C BC ####[facility] Crqmbqilnf7053 [place] [address]Dr. Areli Yousif MANUAL DIFF REQ NO Normal [facility] Comment on above: Performed By: #### C BC ####[facility] Ekrruvfvnk34[address] [place], [place] [address]Dr. Areli Yousif MCH (RBC) [Entitic mass] 29.5 pg Normal 25.9-34.0 [facility] Comment on above: Performed By: #### C BC ####[facility] Rtamtxwpkn[address] [place], [place] [address]Dr. Areli Yousif MCHC (RBC) [Mass/Vol] 32.3 g/dL Normal 29.9-35.2 [facility] Comment on above: Performed By: #### C BC ####[facility] Huvzlyxuda8330 [place] [phone]. Areli Yousif MCV (RBC) [Entitic vol] 91.5 fL Normal 80.0-94.0 [facility] Comment on above: Performed By: #### C BC ####[facility] Nzftnvomez1376 [place] [phone]. Areli Yousif MONO # 0.8 103/ul Normal 0.3-0.8 [facility] Comment on above: Performed By: #### C BC ####[facility] Bgqbdjdhaj4283 [place] [id number]. Areli Yousif Monocytes/100 WBC (Bld) 7.4 % Normal 1.7-12.0 [facility] Comment on above: Performed By: #### C BC ####[facility] Nfnwxvlori[address] [place], [place] [address]Dr. Areli Yousif NEUT # 6.4 103/ul Normal 1.4-6.5 [facility] Comment on above: Performed By: #### C BC ####[facility] Uzyqsllwas1397 [place] [id number]. Areli Yousif Neutrophils/100 WBC (Bld) 60.0 % Normal 43.0-75.0 [facility] Comment on above: Performed By: #### C BC ####[facility] Uygvpeleux9014 [place] [phone]. Areli Yousif Platelet mean volume (Bld) [Entitic vol] 10.3 fL Normal 9.5-13.5 [facility] Comment on above: Performed By: #### C BC ####[facility] Sxofmzavge1170 [place] [phone]. Areli Yousfi PLT 282 103/ul Normal 150-450 [facility] Comment on above: Performed By: #### C BC ####[facility] Pgkslxqeip5146 [place] [id number]. Areli Yousif RBC 3.76 106/ul Critically low 4.70-6.[address] [facility] Comment on above: Performed By: #### C BC ####[facility] Qtcyrvajbz6620 [place], [place] [address]Ry. Areli Yousif WBC 10.7 103/ul Normal 4.0-11.0 [facility] Comment on above: Performed By: #### C BC ####[facility] Xmqevxlnsy7198 [place] [phone]. Areli Yousif CT STROKE HEAD WOon 08-13-[address] STROKE HEAD WO Normal [facility] ([facility]on SARS-CoV-2 (COVID-19) RNA MANSI+probe Ql (Unsp spec) Not detected Normal NOT DETECTED [facility] Comment on above: Result Comment: When diagnostic [...] for this test is supported by the [place] of Health and Human Service's declaration that [...] be used). Performed By: #### C VDTBH ####[facility] Nrxipgfsqg2154 [place] [phone]. Areli Benja ER URINE PROFILEon 2 Bilirubin Ql (U) Negative Normal NEGATIVE [facility] Comment on above: Performed By: #### E RUR ####[facility] Yfjtuxqppr[address] [place], [place] [id number]. Areli Yousif Clarity (U) CLEAR Normal CLEAR [facility] Comment on above: Performed By: #### E RUR ####[facility] Yzzjsgotkw0111 [place] [phone]. Areli Yousif Color (U) LT. YELLOW Normal YELLOW [facility] Comment on above: Performed By: #### E RUR ####[facility] [address]xhwsrih[address] [place], [place] [address]Dr. Areli Yousif ERUAHD A micrscopic examination will be performed if indicated. Normal [facility] Comment on above: Performed By: #### E RUR ####[facility] Yapgxvkxxd380[address] [place], [place] [address]Dr. Areli Yousif Glucose Ql (U) Negative Normal NEGATIVE [facility] Comment on above: Performed By: #### E RUR ####[facility] Ourevnjyfm79[address] [place], [place] [address]Dr. Areli Yousif Hemoglobin Ql (U) Negative Normal NEGATIVE [facility] Comment on above: Performed By: #### E RUR ####[facility] Zjcavpxrya808[address] [place], [place] [address]Dr. Areli Yousif Ketones Ql (U) Negative Normal NEGATIVE [facility] Comment on above: Performed By: #### E RUR ####[facility] Xavagzlzkd[address] [place], [place] [address]Dr. Areli Yousif LEUKOCYTES Negative Normal NEGATIVE [facility] Comment on above: Performed By: #### E RUR ####[facility] Vvcpnxljmf99[address] [place], [place] [address]Dr. Areli Yousif Nitrite Ql (U) Negative Normal NEGATIVE [facility] Comment on above: Performed By: #### E RUR ####[facility] Ccjxruyfxk90[address] [place], [place] [address]Dr. Arlei Yousif pH (U) 6.0 [pH] Normal 5-9 [facility] Comment on above: Performed By: #### E RUR ####[facility] Vixochpbck12[address] [place], [place] [address]Dr. Areli Yousif Protein (U) [Mass/Vol] 30 mg/dL Abnormal NEGAT TIMOTHY/ TRACE [facility] Comment on above: Performed By: #### E RUR ####[facility] Kydwiigusb97[address] [place], [place] [address]Dr. Areli Yousif SPEC GRAVITY 1.020 Normal 1.005-<=1.02 5 [facility] Comment on above: Performed By: #### E RUR ####[facility] Iwguqbwwdp23[address] [place] [address]Dr. Areli Yousif UR MICRO IND NOT INDICATED Normal [facility] Comment on above: Performed By: #### E RUR ####[facility] [id number] [place] [address]Dr. Areli Yousif Urobilinogen Qn (U) 0.2 {Alyssia'U}/dL Normal 0.2 - 1. 0 [facility] Comment on above: Performed By: #### E RUR ####[facility] [address] [place], [place] [address]Dr. Areli Yousif LACTATE/LACTIC ACIDon 2021 Lactate [Moles/Vol] 1.8 mmol/L Normal 0.4-1.9 [facility] Comment on above: Performed By: #### L ACT ####[facility] [address] [place] [address]Dr. Areli Yousif LIPASEon 08-13-2022 Lipase [Catalytic activity/Vol] 75.0 U/L Normal 73.0-393.0 [facility] Comment on above: Performed By: #### L IPA, CMADM, BNP, CMP ####[facility] [address] [place] [address]Dr. Areli Yousif POINT OF CARE GLUCOSEon Glucose [Mass/Vol] 118 mg/dL Critically high 74-106 [facility] Comment on above: Performed By: #### P OCGLUC ####[facility] [address]dt[address] [place] [address]Dr. Areli Yousif PROF 14(COMP METB)on 022 Albumin [Mass/Vol] 3.3 g/dL Critically low 3.4-5.0 [facility] Comment on above: Performed By: #### L IPA, CMADM, BNP, CMP ####[facility] [address] [place], [place] [address]Dr. Areli Yousif Albumin/Globulin [Mass ratio] 0.8 {ratio} Normal [facility] Comment on above: Performed By: #### L IPA, CMADM, BNP, CMP ####[facility] [address] [place] [address]Dr. Tabbytulio Yousif ALP [Catalytic activity/Vol] 68 U/L Normal 46-116 [facility] Comment on above: Performed By: #### L IPA, CMADM, BNP, CMP ####[facility] [address] [place] [address]Dr. Areli Yousif ALT [Catalytic activity/Vol] 12 U/L Critically low 16-63 [facility] Comment on above: Performed By: #### L IPA, CMADM, BNP, CMP ####[facility] [address] [place] [address]Dr. Areli Yousif Anion gap [Moles/Vol] 12.0 mmol/L Normal [facility] Comment on above: Performed By: #### L IPA, CMADM, BNP, CMP ####[facility] [address]yl[address]rw[address] [place] [address]Dr. Areli Yousif AST [Catalytic activity/Vol] 9 U/L Critically low 15-37 [facility] Comment on above: Performed By: #### L IPA, CMADM, BNP, CMP ####[facility] [address] [place] [address]Dr. Areli Yousif Bilirubin [Mass/Vol] 0.2 mg/dL Normal 0.2-1.0 [facility] Comment on above: Performed By: #### L IPA, CMADM, BNP, CMP ####[facility] [address]chxrs[address] [place] [address]Dr. Areli Youisf Calcium [Mass/Vol] 9.3 mg/dL Normal 8.5-10.1 [facility] Comment on above: Performed By: #### L IPA, CMADM, BNP, CMP ####[facility] R[address]jcwxjab[address] [place] [address]Dr. Areli Yousif Chloride [Moles/Vol] 104 mmol/L Normal 98-107 [facility] Comment on above: Performed By: #### L IPA, CMADM, BNP, CMP ####[facility] [address]funfolc[address] [place] [address]Dr. Areli Yousif CO2 [Moles/Vol] 25.0 mmol/L Normal 21.0-32.0 [facility] Comment on above: Performed By: #### L IPA, CMADM, BNP, CMP ####[facility] [address] [place], [place] [address]Dr. Areli Yousif Creatinine [Mass/Vol] 1.35 mg/dL Critically high 0.70-1.30 [facility] Comment on above: Performed By: #### L IPA, CMADM, BNP, CMP ####[facility] [address] [place], [place] [address]Dr. Areli Yousif EGFR-AF MONEGASQUE >60 Normal >=60 [facility] Comment on above: Performed By: #### L IPA, CMADM, BNP, CMP ####[facility] [address] [place], [place] [address]Dr. Areli Yousif EGFR-NON AF MONEGASQUE 53 mL/min/1.73m2 Critically low >=60 [facility] Comment on above: Performed By: #### L IPA, CMADM, BNP, CMP ####[facility] [address] [place], [place] [address]Dr. Areli Yousif Globulin (S) [Mass/Vol] 3.9 g/dL Normal [facility] Comment on above: Performed By: #### L IPA, CMADM, BNP, CMP ####[facility] Xekkb[address] [place], [place] [address]Dr. Areli Yousif Glucose [Mass/Vol] 131 mg/dL Critically high 74-106 [facility] Comment on above: Performed By: #### L IPA, CMADM, BNP, CMP ####[facility] Cfuv[address] [place], [place] [address]Dr. Areli Yousif Potassium [Moles/Vol] 5.0 mmol/L Normal 3.5-5.1 [facility] Comment on above: Performed By: #### L IPA, CMADM, BNP, CMP ####[facility] [address] [place] [id number]. Areli Yousif Protein [Mass/Vol] 7.2 g/dL Normal 6.4-8.2 [facility] Comment on above: Performed By: #### L IPA, CMADM, BNP, CMP ####[facility] [address] [place] [id number]. Tabbytulio Yousif Sodium [Moles/Vol] 136 mmol/L Normal 136-145 [facility] Comment on above: Performed By: #### L IPA, CMADM, BNP, CMP ####[facility] [address] [place] [address]Dr. Tabbytulio Yousif Urea nitrogen [Mass/Vol] 48.0 mg/dL Critically high 7.0-18.0 [facility] Comment on above: Performed By: #### L IPA, CMADM, BNP, CMP ####[facility] [address]co[address] [place] [address]Dr. Areli Yousif Urea nitrogen/Creatinine [Mass ratio] 35.6 mg/mg Normal [facility] Comment on above: Performed By: #### L IPA, CMADM, BNP, CMP ####[facility] [address] [place] [address]Dr. Areli Yousif XR CHEST 1 Von 08-13-2022 XR CHEST 1 V Normal [facility] Outside Recordson 08-11-2022 Outside Records [id number]#1 .00OTGTIFF [facility] Coding Summaryon 08-08-2022 Coding Summary [facility] Outside Recordson 08-08-2022 Outside Records [id number] 05 [id number]#1.0 0[facility] Outside Recordson 08-05-2022 Outside Records [id number] 20 [id number]#1.0 0[facility] Coding Summaryon 08-04-2022 Coding Summary [facility] Coding Summary [facility] Office/Clinic Noteon 022 Office/Clinic Note [facility] Outside Recordson 08-04-2022 Outside Records [id number]#1 [facility] 08-01-2022 Provider Orders [id number] 06 [id number]#1.00 [facility] BMP Standardon 07-31-2022 eGFR AA >60 Invalid Interpretation Code [facility] Comment on above: Result Comment: Station Helper lokesh Kidney disease could be indicated at eGFRs of less than 60 ml/min/1.73m2. Kidney Failure is indicated at less than 15 ml/min/1.73m2 Performed By: #### 1 [id number] ####[facility] (DEFAULT)[address] [place] [address] 81547 eGFR Non AA >60 Invalid Interpretation Code [facility] Comment on above: Performed By: #### 1 [id number] ####[facility] (DEFAULT)[address] [place] [address] 79206 Anion gap [Moles/Vol] 16.0 mmol/L Normal 5.0-19.0 [facility] Comment on above: Performed By: #### 1 [id number] ####[facility] (DEFAULT)[address] [place] [address] 91897 Calcium [Mass/Vol] 8.8 mg/dL Low 8.9-10.3 [facility] Comment on above: Performed By: #### 1 [id number] ####[facility] (DEFAULT)[address] [place] [address] 06257 Chloride [Moles/Vol] 101 mmol/L Normal 101-111 [facility] Comment on above: Performed By: #### 1 [id number] ####[facility] (DEFAULT)[address] [place] [address]64 CO2 [Moles/Vol] 23 mmol/L Normal 21-32 [facility] Comment on above: Performed By: #### 1 [id number] ####[facility] (DEFAULT)[address] [place] [address] 95763 Creatinine [Mass/Vol] 1.17 mg/dL Normal 0.90-1.30 [facility] Comment on above: Performed By: #### 1 [id number] ####[facility] (DEFAULT)[address] [place] [address] 82043 Glucose [Mass/Vol] 33.0 mg/dL Critically abnormal 74.0-118.0 [facility] Comment on above: Result Comment: Crit ical GLUm 33 result called and read back ok to: BARBARA LIGHT at: 13:54:45 07/31/2022 by: SONYA Performed By: #### 1 [id number] ####[facility] (DEFAULT)[address] [place] [address] 31249 Osmolality 273 mOsm/L Invalid Interpretation Code [facility] Comment on above: Performed By: #### 1 [id number] ####[facility] (DEFAULT)[address] [place] [address] 35827 Potassium [Moles/Vol] 4.8 mmol/L Normal 3.6-5.1 [facility] Comment on above: Performed By: #### 1 [id number] ####[facility] (DEFAULT)[address] [place] [address] 43100 Sodium [Moles/Vol] 135.0 mmol/L Low 136.0-144.0 [facility] Comment on above: Performed By: #### 1 [id number] ####[facility] (DEFAULT)[address] [place] [address] 93506 Urea nitrogen [Mass/Vol] 30 mg/dL High 8-26 [facility] Comment on above: Performed By: #### 1 [id number] ####[facility] (DEFAULT)[address] [place] [address] 11503 Urea nitrogen/Creatinine [Mass ratio] 26.0 mg/mg High 4.6-16.2 [facility] Comment on above: Performed By: #### 1 [id number] ####[facility] (DEFAULT)[address] [place] [address] 33883 Phone Message/Callon 022 Phone Message/Call Normal [facility] Coding Summaryon 07-28-2022 Coding Summary [facility] Progress Note - Nurseon 07-06 Progress Note - Nurse [id number] [id number]#1.0 0[facility] POCT Glucose Levelon 022 Glucose [Mass/Vol] 221 mg/dL High 74-118 [facility] Comment on above: Performed By: #### 4 [id number] ####[facility] (DEFAULT)[address] [place] [address] Consent Formson 07-25-2022 Consent Forms [id number]#1.0 [facility] 07-25-2022 Provider Orders [id number] 05 [id number]#1.00 [facility] Coding Queryon 07-24-2022 Coding Query [facility] Consent Formson 07-24-2022 Consent Forms [id number]#1.0 0[facility] Phone Message/Callon 022 Phone Message/Call [facility] .Auto Diff 1on 07-23-2022 Auto [place] % 7 % Normal -12 [facility] Comment on above: Performed By: #### 1 [id number], [id number], [id number] ####[facility] (DEFAULT)[address] [place] [address] 15337 Baso Abs# 0.0 x10 Normal 0.0-0.2 [facility] Comment on above: Performed By: #### 1 [id number], [id number], [id number] ####[facility] (DEFAULT)[address] [place] [address] 22300 Basophils/100 WBC (Bld) 0.2 % Normal 0.2-2.0 [facility] Comment on above: Performed By: #### 1 [id number], [id number], [id number] ####[facility] (DEFAULT)[address] [place] [address] 28631 Eos Abs# 0.2 x10 Normal 0.0-0.4 [facility] Comment on above: Performed By: #### 1 [id number], [id number], [id number] ####[facility] (DEFAULT)[address] [place] [address] 45202 Eosinophils/100 WBC (Bld) 2.1 % Normal 0.9-4.0 [facility] Comment on above: Performed By: #### 1 [id number], [id number], [id number] ####[facility] (DEFAULT)[address] [place] [address] Lymph Abs# 3.2 x10 High 1.3-2.9 [facility] Comment on above: Performed By: #### 1 [id number], [id number], 5108536 ####[facility] (DEFAULT)[address] [place] [address] Lymphocytes/100 WBC (Bld) 35 % Normal 14-48 [facility] Comment on above: Performed By: #### 1 [id number], [id number], [id number] ####[facility] (DEFAULT)[address] [place] [address] [place] Abs# 0.7 x10 Normal 0.0-0.8 [facility] Comment on above: Performed By: #### 1 [id number], [id number], 6353024 ####[facility] (DEFAULT)[address] [place] [address] 54121 Neut Abs# 5.1 x10 Normal 1.5-9.2 [facility] Comment on above: Performed By: #### 1 [id number], [id number], 5373212 ####[facility] (DEFAULT)[address] [place] [address] 63042 Neutrophils/100 WBC (Bld) 56 % Normal 44-88 [facility] Comment on above: Performed By: #### 1 [id number], [id number], [id number] ####[facility] (DEFAULT)[address] [place] [address] BMP Standardon 07-23-2022 eGFR Non AA >60 Invalid Interpretation Code [facility] Comment on above: Performed By: #### 1 [id number], [id number], [id number] ####[facility] (DEFAULT)[address] [place] [address] 47346 eGFR AA >60 Invalid Interpretation Code [facility] Comment on above: Result Comment: Station Helper lokesh Kidney disease could be indicated at eGFRs of less than 60 ml/min/1.73m2. Kidney Failure is indicated at less than 15 ml/min/1.73m2 Performed By: #### 1 [id number], [id number], [id number] ####[facility] (DEFAULT)[address] [place] [address] 80186 Anion gap [Moles/Vol] 12.0 mmol/L Normal 5.0-19.0 [facility] Comment on above: Performed By: #### 1 [id number], [id number], 9333734 ####[facility] (DEFAULT)[address] [place] [address] 44481 Calcium [Mass/Vol] 8.7 mg/dL Low 8.9-10.3 [facility] Comment on above: Performed By: #### 1 [id number], 90430443, 2507702 ####[facility] (DEFAULT)[address] [place] [address] 04631 Chloride [Moles/Vol] 106 mmol/L Normal 101-111 [facility] Comment on above: Performed By: #### 1 [id number], 47505594, 7696363 ####[facility] (DEFAULT)[address] [place] [address] 89335 CO2 [Moles/Vol] 24 mmol/L Normal 21-32 [facility] Comment on above: Performed By: #### 1 [id number], 58863187, 5744902 ####[facility] (DEFAULT)[address] [place] [address] 11127 Creatinine [Mass/Vol] 1.05 mg/dL Normal 0.90-1.30 [facility] Comment on above: Performed By: #### 1 [id number], [id number], [id number] ####[facility] (DEFAULT)[address] [place] [address] 52597 Glucose [Mass/Vol] 126.0 mg/dL High 74.0-118.0 [facility] Comment on above: Performed By: #### 1 [id number], [id number], 1689344 ####[facility] (DEFAULT)[address] [place] [address] 23479 Osmolality 286 mOsm/L Invalid Interpretation Code [facility] Comment on above: Performed By: #### 1 [id number], 86514801, 5444331 ####[facility] (DEFAULT)[address] [place] [address] 22273 Potassium [Moles/Vol] 4.5 mmol/L Normal 3.6-5.1 [facility] Comment on above: Performed By: #### 1 [id number], 46099736, 8547955 ####[facility] (DEFAULT)[address] [place] [address] 87162 Sodium [Moles/Vol] 137.0 mmol/L Normal 136.0-144.0 [facility] Comment on above: Performed By: #### 1 [id number], 43957386, 7524773 ####[facility] (DEFAULT)[address] [place] [address] 58868 Urea nitrogen [Mass/Vol] 44 mg/dL High 8-26 [facility] Comment on above: Performed By: #### 1 [id number], 87498705, 5099888 ####[facility] (DEFAULT)[address] [place] [address] 99424 Urea nitrogen/Creatinine [Mass ratio] 42.0 mg/mg High 4.6-16.2 [facility] Comment on above: Performed By: #### 1 [id number], 17854494, 5624785 ####[facility] (DEFAULT)[address] [place] [address] 15172 CBC w/ Auto Diffon 2 Erythrocyte distribution width (RBC) [Ratio] 13.4 % Normal 11.5-15.0 [facility] Comment on above: Performed By: #### 1 [id number], 15856173, 8900032 ####[facility] (DEFAULT)[address] [place] [address] 11340 Hematocrit (Bld) [Volume fraction] 30.0 % Low 34.8-51.9 [facility] Comment on above: Performed By: #### 1 [id number], 33505372, 1581162 ####[facility] (DEFAULT)[address] [place] [address] 65766 Hemoglobin (Bld) [Mass/Vol] 9.5 g/dL Low 11.8-17.7 [facility] Comment on above: Performed By: #### 1 [id number], 40297349, 4671671 ####[facility] (DEFAULT)[address] [place] [address] 25514 Instr WBC 9.2 x10 Invalid Interpretation Code [facility] Comment on above: Performed By: #### 1 [id number], [id number], 1475685 ####[facility] (DEFAULT)[address] [place] [address] 51541 Man Diff? Auto Normal [facility] Comment on above: Performed By: #### 1 [id number], 05864075, 5228943 ####[facility] (DEFAULT)[address] [place] [address] 38679 MCH (RBC) [Entitic mass] 29 pg Normal 24-34 [facility] Comment on above: Performed By: #### 1 [id number], 38393442, 7724373 ####[facility] (DEFAULT)[address] [place] [address] 73116 MCHC (RBC) [Mass/Vol] 32 g/dL Normal 26-37 [facility] Comment on above: Performed By: #### 1 [id number], 64542906, 4823392 ####[facility] (DEFAULT)[address] [place] [address] 25281 MCV (RBC) [Entitic vol] 91 fL Normal 81-100 [facility] Comment on above: Performed By: #### 1 [id number], 79929614, 0982449 ####[facility] (DEFAULT)[address] [place] [address] 46412 Platelet 253 x10 Normal 138-427 [facility] Comment on above: Performed By: #### 1 [id number], 29787934, 5394900 ####[facility] (DEFAULT)[address] [place] [address] Platelet mean volume (Bld) [Entitic vol] 11.1 fL High 6.3-10.2 [facility] Comment on above: Performed By: #### 1 [id number], 80382663, 2397039 ####[facility] (DEFAULT)[address] [place] [address] RBC 3.29 x10 Low 3.70-5.30 [facility] Comment on above: Performed By: #### 1 [id number], 00474999, 3450081 ####[facility] (DEFAULT)[address] [place] [address] WBC 9.2 x10 Normal 3.5-10.5 [facility] Comment on above: Performed By: #### 1 [id number], 59301982, 8720934 ####[facility] (DEFAULT)[address] [place] [address] Education Noteon 07-23-2022 Education Note Normal [facility] Inpatient Clinical Summaryon 07-23-2022 Inpatient Clinical Summary Normal [facility] Inpatient Patient Summaryon 07-23-2022 Inpatient Patient Summary Normal [facility] Nutrition Noteon 07-23-2022 Nutrition Note Normal [facility] POCT Glucose Levelon 022 Glucose [Mass/Vol] 221 mg/dL High 74-118 [facility] Comment on above: Performed By: #### 4 [id number] ####[facility] (DEFAULT)[address] [place] [address] Glucose [Mass/Vol] 68 mg/dL Low 74-118 [facility] Comment on above: Performed By: #### 4 [id number] ####[facility] (DEFAULT)[address] [place] [address] Pharmacy Noteon 07-23-2022 Pharmacy Note Normal [facility] .Auto Diff 1on 07-22-2022 Auto [place] % 8 % Normal 1-12 [facility] Comment on above: Performed By: #### 1 [id number], [id number], 84751236 ####[facility] (DEFAULT)[address] [place] [address] 29234 Baso Abs# 0.0 x10 Normal 0.0-0.2 [facility] Comment on above: Performed By: #### 1 [id number], 1734379, 63881296 ####[facility] (DEFAULT)[address] [place] [address] 42523 Basophils/100 WBC (Bld) 0.2 % Normal 0.2-2.0 [facility] Comment on above: Performed By: #### 1 [id number], 0948997, 84706808 ####[facility] (DEFAULT)[address] [place] [address] 33855 Eos Abs# 0.2 x10 Normal 0.0-0.4 [facility] Comment on above: Performed By: #### 1 [id number], 1163740, 52919008 ####[facility] (DEFAULT)[address] [place] [address] 05968 Eosinophils/100 WBC (Bld) 2.3 % Normal 0.9-4.0 [facility] Comment on above: Performed By: #### 1 [id number], 7779273, 64696829 ####[facility] (DEFAULT)[address] [place] [address] 11336 Lymph Abs# 2.6 x10 Normal 1.3-2.9 [facility] Comment on above: Performed By: #### 1 [id number], 2243318, 24455654 ####[facility] (DEFAULT)[address] [place] [address] 20629 Lymphocytes/100 WBC (Bld) 31 % Normal 14-48 [facility] Comment on above: Performed By: #### 1 [id number], 3705165, 50029895 ####[facility] (DEFAULT)[address] [place] [address] 28293 [place] Abs# 0.7 x10 Normal 0.0-0.8 [facility] Comment on above: Performed By: #### 1 [id number], 6609222, 83886028 ####[facility] (DEFAULT)[address] [place] [address] 70294 Neut Abs# 4.9 x10 Normal 1.5-9.2 [facility] Comment on above: Performed By: #### 1 [id number], 6101635, 79667834 ####[facility] (DEFAULT)[address] [place] [address] 82401 Neutrophils/100 WBC (Bld) 59 % Normal 44-88 [facility] Comment on above: Performed By: #### 1 [id number], 0800959, 99514241 ####[facility] (DEFAULT)[address] [place] [address] 94856 BMP Standardon 07-22-2022 eGFR Non AA 57 mL/min/1.73m2 Invalid Interpretation Code [facility] Comment on above: Order Comment: I spo ke with Darline Thacker Nursing Integration Specialist/RN and asked if this blood work needs to be done at 0600. She said no that it can be done sooner. 07/22/2022 04:03:17 EDT Performed By: #### 1 [id number], 5404206, 11666454 ####[facility] (DEFAULT)[address] [place] [address] 34225 eGFR AA >60 Invalid Interpretation Code [facility] Comment on above: Order Comment: I spo ke with Darline Thacker Nursing Integration Specialist/RN and asked if this blood work needs to be done at 0600. She said no that it can be done sooner. 07/22/2022 04:03:17 EDT Result Comment: Station Helper lokesh Kidney disease could be indicated at eGFRs of less than 60 ml/min/1.73m2. Kidney Failure is indicated at less than 15 ml/min/1.73m2 Performed By: #### 1 [id number], [id number], 07174455 ####[facility] (DEFAULT)[address] [place] [address] 65571 Anion gap [Moles/Vol] 12.0 mmol/L Normal 5.0-19.0 [facility] Comment on above: Order Comment: I spo ke with Darline Thacker Nursing Integration Specialist/RN and asked if this blood work needs to be done at 0600. She said no that it can be done sooner. 07/22/2022 04:03:17 EDT Performed By: #### 1 [id number], [id number], [id number] ####[facility] (DEFAULT)[address] [place] [address] 45331 Calcium [Mass/Vol] 8.6 mg/dL Low 8.9-10.3 [facility] Comment on above: Order Comment: I spo ke with Darline Thacker Nursing Integration Specialist/RN and asked if this blood work needs to be done at 0600. She said no that it can be done sooner. 07/22/2022 04:03:17 EDT Performed By: #### 1 [id number], 6503514, [id number] ####[facility] (DEFAULT)[address] [place] [address] 44556 Chloride [Moles/Vol] 106 mmol/L Normal 101-111 [facility] Comment on above: Order Comment: I spo ke with Darline Thacker Nursing Integration Specialist/RN and asked if this blood work needs to be done at 0600. She said no that it can be done sooner. 07/22/2022 04:03:17 EDT Performed By: #### 1 [id number], 4687065, [id number] ####[facility] (DEFAULT)[address] [place] [address] 33971 CO2 [Moles/Vol] 23 mmol/L Normal 21-32 [facility] Comment on above: Order Comment: I spo ke with Darline Thacker Nursing Integration Specialist/RN and asked if this blood work needs to be done at 0600. She said no that it can be done sooner. 07/22/2022 04:03:17 EDT Performed By: #### 1 [id number], [id number], [id number] ####[facility] (DEFAULT)[address] [place] [address] 54974 Creatinine [Mass/Vol] 1.26 mg/dL Normal 0.90-1.30 [facility] Comment on above: Order Comment: I spo ke with Darline Thacker Nursing Integration Specialist/RN and asked if this blood work needs to be done at 0600. She said no that it can be done sooner. 07/22/2022 04:03:17 EDT Performed By: #### 1 [id number], [id number], [id number] ####[facility] (DEFAULT)[address] [place] [address] 27185 Glucose [Mass/Vol] 270.0 mg/dL High 74.0-118.0 [facility] Comment on above: Order Comment: I spo ke with Darline Thacker Nursing Integration Specialist/RN and asked if this blood work needs to be done at 0600. She said no that it can be done sooner. 07/22/2022 04:03:17 EDT Performed By: #### 1 [id number], [id number], [id number] ####[facility] (DEFAULT)[address] [place] [address] 58800 Osmolality 294 mOsm/L Invalid Interpretation Code [facility] Comment on above: Order Comment: I spo ke with Darline Thacker Nursing Integration Specialist/RN and asked if this blood work needs to be done at 0600. She said no that it can be done sooner. 07/22/2022 04:03:17 EDT Performed By: #### 1 [id number], [id number], [id number] ####[facility] (DEFAULT)[address] [place] [address] 06295 Potassium [Moles/Vol] 5.2 mmol/L High 3.6-5.1 [facility] Comment on above: Order Comment: I spo ke with Darline Thacker Nursing Integration Specialist/RN and asked if this blood work needs to be done at 0600. She said no that it can be done sooner. 07/22/2022 04:03:17 EDT Performed By: #### 1 [id number], [id number], [id number] ####[facility] (DEFAULT)[address] [place] [address] 05617 Sodium [Moles/Vol] 136.0 mmol/L Normal 136.0-144.0 [facility] Comment on above: Order Comment: I spo ke with Darline Thacker Nursing Integration Specialist/RN and asked if this blood work needs to be done at 0600. She said no that it can be done sooner. 07/22/2022 04:03:17 EDT Performed By: #### 1 [id number], [id number], [id number] ####[facility] (DEFAULT)[address] [place] [address] Urea nitrogen [Mass/Vol] 49 mg/dL High 8-26 [facility] Comment on above: Order Comment: I spo ke with Darline Thacker Nursing Integration Specialist/RN and asked if this blood work needs to be done at 0600. She said no that it can be done sooner. 07/22/2022 04:03:17 EDT Performed By: #### 1 [id number], [id number], [id number] ####[facility] (DEFAULT)[address] [place] [address] Urea nitrogen/Creatinine [Mass ratio] 39.0 mg/mg High 4.6-16.2 [facility] Comment on above: Order Comment: I spo ke with Darline Thacker Nursing Integration Specialist/RN and asked if this blood work needs to be done at 0600. She said no that it can be done sooner. 07/22/2022 04:03:17 EDT Performed By: #### 1 [id number], [id number], [id number] ####[facility] (DEFAULT)[address] [place] [address] CBC w/ Auto Diffon Erythrocyte distribution width (RBC) [Ratio] 13.4 % Normal 11.5-15.0 [facility] Comment on above: Order Comment: I spo ke with Darline Thacker Nursing Integration Specialist/RN and asked if this blood work needs to be done at 0600. She said no that it can be done sooner. 07/22/2022 04:03:17 EDT Performed By: #### 1 [id number], [id number], [id number] ####[facility] (DEFAULT)[address] [place] [address] Hematocrit (Bld) [Volume fraction] 28.6 % Low 34.8-51.9 [facility] Comment on above: Order Comment: I spo ke with Darline Thacker Nursing Integration Specialist/RN and asked if this blood work needs to be done at 0600. She said no that it can be done sooner. 07/22/2022 04:03:17 EDT Performed By: #### 1 [id number], [id number], [id number] ####[facility] (DEFAULT)[address] [place] [address] 30039 Hemoglobin (Bld) [Mass/Vol] 9.2 g/dL Low 11.8-17.7 [facility] Comment on above: Order Comment: I spo ke with Darline Thacker Nursing Integration Specialist/RN and asked if this blood work needs to be done at 0600. She said no that it can be done sooner. 07/22/2022 04:03:17 EDT Performed By: #### 1 [id number], [id number], [id number] ####[facility] (DEFAULT)[address] [place] [address] Instr WBC 8.3 x10 Invalid Interpretation Code [facility] Comment on above: Order Comment: I spo ke with Darline Thacker Nursing Integration Specialist/RN and asked if this blood work needs to be done at 0600. She said no that it can be done sooner. 07/22/2022 04:03:17 EDT Performed By: #### 1 [id number], [id number], [id number] ####[facility] (DEFAULT)[address] [place] [address] 13847 Man Diff? Auto Normal [facility] Comment on above: Order Comment: I spo ke with Darline Thacker Nursing Integration Specialist/RN and asked if this blood work needs to be done at 0600. She said no that it can be done sooner. 07/22/2022 04:03:17 EDT Performed By: #### 1 [id number], [id number], [id number] ####[facility] (DEFAULT)[address] [place] [address] 65783 MCH (RBC) [Entitic mass] 30 pg Normal 24-34 [facility] Comment on above: Order Comment: I spo ke with Darline Thacker Nursing Integration Specialist/RN and asked if this blood work needs to be done at 0600. She said no that it can be done sooner. 07/22/2022 04:03:17 EDT Performed By: #### 1 [id number], [id number], [id number] ####[facility] (DEFAULT)[address] [place] [address] 00581 MCHC (RBC) [Mass/Vol] 32 g/dL Normal 26-37 [facility] Comment on above: Order Comment: I spo ke with Darline Thacker Nursing Integration Specialist/RN and asked if this blood work needs to be done at 0600. She said no that it can be done sooner. 07/22/2022 04:03:17 EDT Performed By: #### 1 [id number], [id number], [id number] ####[facility] (DEFAULT)[address] [place] [address] 51765 MCV (RBC) [Entitic vol] 92 fL Normal 81-100 [facility] Comment on above: Order Comment: I spo ke with Darline Thacker Nursing Integration Specialist/RN and asked if this blood work needs to be done at 0600. She said no that it can be done sooner. 07/22/2022 04:03:17 EDT Performed By: #### 1 [id number], [id number], [id number] ####[facility] (DEFAULT)[address] [place] [address] 38500 Platelet 254 x10 Normal 138-427 [facility] Comment on above: Order Comment: I spo ke with Darline Thacker Nursing Integration Specialist/RN and asked if this blood work needs to be done at 0600. She said no that it can be done sooner. 07/22/2022 04:03:17 EDT Performed By: #### 1 [id number], [id number], [id number] ####[facility] (DEFAULT)[address] [place] [address] 87259 Platelet mean volume (Bld) [Entitic vol] 11.3 fL High 6.3-10.2 [facility] Comment on above: Order Comment: I spo ke with Darline Thacker Nursing Integration Specialist/RN and asked if this blood work needs to be done at 0600. She said no that it can be done sooner. 07/22/2022 04:03:17 EDT Performed By: #### 1 [id number], [id number], [id number] ####[facility] (DEFAULT)[address] [place] [address] 94939 RBC 3.12 x10 Low 3.70-5.30 [facility] Comment on above: Order Comment: I spo ke with Darline Kedar Nursing Integration Specialist/RN and asked if this blood work needs to be done at 0600. She said no that it can be done sooner. 07/22/2022 04:03:17 EDT Performed By: #### 1 [id number], [id number], [id number] ####[facility] (DEFAULT)[address] [place] [address] 78830 WBC 8.3 x10 Normal 3.5-10.5 [facility] Comment on above: Order Comment: I spo ke with Darline Kedar Nursing Integration Specialist/RN and asked if this blood work needs to be done at 0600. She said no that it can be done sooner. 07/22/2022 04:03:17 EDT Performed By: #### 1 [id number], [id number], [id number] ####[facility] (DEFAULT)[address] [place] [address] 69363 POCT Glucose Levelon 022 Glucose [Mass/Vol] 257 mg/dL High 74-118 [facility] Comment on above: Performed By: #### 4 [id number] ####[facility] (DEFAULT)[address] [place] [address] 98493 Glucose [Mass/Vol] 271 mg/dL High 74-118 [facility] Comment on above: Performed By: #### 4 [id number] ####[facility] (DEFAULT)[address] [place] [address] 33023 Glucose [Mass/Vol] 195 mg/dL High 74-118 [facility] Comment on above: Performed By: #### 4 [id number] ####[facility] (DEFAULT)[address] [place] [address] 22472 Glucose [Mass/Vol] 170 mg/dL High 74-118 [facility] Comment on above: Performed By: #### 4 [id number] ####[facility] (DEFAULT)[address] [place] [address] 91374 Progress Note - Nurseon 07-05 Progress Note - Nurse Normal [facility] .Auto Diff 1on 07-21-2022 Auto [place] % 6 % Normal 1-12 [facility] Comment on above: Performed By: #### 1 [id number], [id number], [id number] ####[facility] (DEFAULT)[address] [place] [address] 96202 Baso Abs# 0.0 x10 Normal 0.0-0.2 [facility] Comment on above: Performed By: #### 1 [id number], [id number], [id number] ####[facility] (DEFAULT)[address] [place] [address] 91756 Basophils/100 WBC (Bld) 0.2 % Normal 0.2-2.0 [facility] Comment on above: Performed By: #### 1 [id number], [id number], [id number] ####[facility] (DEFAULT)[address] [place] [address] 08100 Eos Abs# 0.3 x10 Normal 0.0-0.4 [facility] Comment on above: Performed By: #### 1 [id number], [id number], [id number] ####[facility] (DEFAULT)[address] [place] [address] 67196 Eosinophils/100 WBC (Bld) 3.2 % Normal 0.9-4.0 [facility] Comment on above: Performed By: #### 1 [id number], [id number], [id number] ####[facility] (DEFAULT)[address] [place] [address] 56420 Lymph Abs# 2.9 x10 Normal 1.3-2.9 [facility] Comment on above: Performed By: #### 1 [id number], [id number], [id number] ####[facility] (DEFAULT)[address] [place] [address] 93132 Lymphocytes/100 WBC (Bld) 34 % Normal 14-48 [facility] Comment on above: Performed By: #### 1 [id number], [id number], [id number] ####[facility] (DEFAULT)[address] [place] [address] [place] Abs# 0.6 x10 Normal 0.0-0.8 [facility] Comment on above: Performed By: #### 1 [id number], [id number], [id number] ####[facility] (DEFAULT)[address] [place] [address] Neut Abs# 4.8 x10 Normal 1.5-9.2 [facility] Comment on above: Performed By: #### 1 [id number], [id number], [id number] ####[facility] (DEFAULT)[address] [place] [address] Neutrophils/100 WBC (Bld) 56 % Normal 44-88 [facility] Comment on above: Performed By: #### 1 [id number], [id number], [id number] ####[facility] (DEFAULT)[address] [place] [address] Standardon 07-21-2022 eGFR Non AA 49 mL/min/1.73m2 Invalid Interpretation Code [facility] Comment on above: Performed By: #### 1 [id number] ####[facility] (DEFAULT)[address] [place] [address] eGFR AA 59 mL/min/1.73m2 Invalid Interpretation Code [facility] Comment on above: Result Comment: Station Helper lokesh Kidney disease could be indicated at eGFRs of less than 60 ml/min/1.73m2. Kidney Failure is indicated at less than 15 ml/min/1.73m2 Performed By: #### 1 [id number] ####[facility] (DEFAULT)[address] [place] [address] Anion gap [Moles/Vol] 12.0 mmol/L Normal 5.0-19.0 [facility] Comment on above: Performed By: #### 1 [id number] ####[facility] (DEFAULT)[address] [place] [address] Calcium [Mass/Vol] 8.6 mg/dL Low 8.9-10.3 [facility] Comment on above: Performed By: #### 1 [id number] ####[facility] (DEFAULT)[address] [place] [address] 03878 Chloride [Moles/Vol] 105 mmol/L Normal 101-111 [facility] Comment on above: Performed By: #### 1 [id number] ####[facility] (DEFAULT)[address] [place] [address] 82265 CO2 [Moles/Vol] 22 mmol/L Normal 21-32 [facility] Comment on above: Performed By: #### 1 [id number] ####[facility] (DEFAULT)[address] [place] [address] 71199 Creatinine [Mass/Vol] 1.44 mg/dL High 0.90-1.30 [facility] Comment on above: Performed By: #### 1 [id number] ####[facility] (DEFAULT)[address] [place] [address] 47261 Glucose [Mass/Vol] 290.0 mg/dL High 74.0-118.0 [facility] Comment on above: Performed By: #### 1 [id number] ####[facility] (DEFAULT)[address] [place] [address] 67922 Osmolality 291 mOsm/L Invalid Interpretation Code [facility] Comment on above: Performed By: #### 1 [id number] ####[facility] (DEFAULT)[address] [place] [address] 77048 Potassium [Moles/Vol] 5.6 mmol/L High 3.6-5.1 [facility] Comment on above: Performed By: #### 1 [id number] ####[facility] (DEFAULT)[address] [place] [address] 13435 Sodium [Moles/Vol] 133.0 mmol/L Low 136.0-144.0 [facility] Comment on above: Performed By: #### 1 [id number] ####[facility] (DEFAULT)[address] [place] [address] 53811 Urea nitrogen [Mass/Vol] 51 mg/dL High 8-26 [facility] Comment on above: Performed By: #### 1 [id number] ####[facility] (DEFAULT)[address] [place] [address] 11315 Urea nitrogen/Creatinine [Mass ratio] 35.0 mg/mg High 4.6-16.2 [facility] Comment on above: Performed By: #### 1 [id number] ####[facility] (DEFAULT)[address] [place] [address] 88576 eGFR Non AA 53 mL/min/1.73m2 Invalid Interpretation Code [facility] Comment on above: Order Comment: I spo ke with Esther Bautista RN and had asked if 0600 blood work had be done at 0600. She said no that they can be done at morning blood work draws at 0430. 07/21/2022 04:08:38 EDT Performed By: #### 1 [id number], [id number], [id number] ####[facility] (DEFAULT)[address] [place] [address] 99490 eGFR AA >60 Invalid Interpretation Code [facility] Comment on above: Order Comment: I spo ke with Esther Bautista RN and had asked if 0600 blood work had be done at 0600. She said no that they can be done at morning blood work draws at 0430. 07/21/2022 04:08:38 EDT Result Comment: Station Helper lokesh Kidney disease could be indicated at eGFRs of less than 60 ml/min/1.73m2. Kidney Failure is indicated at less than 15 ml/min/1.73m2 Performed By: #### 1 [id number], [id number], [id number] ####[facility] (DEFAULT)[address] [place] [address] 93019 Anion gap [Moles/Vol] 11.0 mmol/L Normal 5.0-19.0 [facility] Comment on above: Order Comment: I spo ke with Esther Bautista RN and had asked if 0600 blood work had be done at 0600. She said no that they can be done at morning blood work draws at 0430. 07/21/2022 04:08:38 EDT Performed By: #### 1 [id number], [id number], [id number] ####[facility] (DEFAULT)[address] [place] [address] 01191 Calcium [Mass/Vol] 9.0 mg/dL Normal 8.9-10.3 [facility] Comment on above: Order Comment: I spo ke with Esther Bautista RN and had asked if 0600 blood work had be done at 0600. She said no that they can be done at morning blood work draws at 0430. 07/21/2022 04:08:38 EDT Performed By: #### 1 [id number], [id number], [id number] ####[facility] (DEFAULT)[address] [place] [address] 60028 Chloride [Moles/Vol] 106 mmol/L Normal 101-111 [facility] Comment on above: Order Comment: I spo ke with Esther Bautista RN and had asked if 0600 blood work had be done at 0600. She said no that they can be done at morning blood work draws at 0430. 07/21/2022 04:08:38 EDT Performed By: #### 1 [id number], [id number], [id number] ####[facility] (DEFAULT)[address] [place] [address] 47969 CO2 [Moles/Vol] 25 mmol/L Normal 21-32 [facility] Comment on above: Order Comment: I spo ke with Esther Bautista RN and had asked if 0600 blood work had be done at 0600. She said no that they can be done at morning blood work draws at 0430. 07/21/2022 04:08:38 EDT Performed By: #### 1 [id number], [id number], [id number] ####[facility] (DEFAULT)[address] [place] [address] 11788 Creatinine [Mass/Vol] 1.35 mg/dL High 0.90-1.30 [facility] Comment on above: Order Comment: I spo ke with Esther Bautista RN and had asked if 0600 blood work had be done at 0600. She said no that they can be done at morning blood work draws at 0430. 07/21/2022 04:08:38 EDT Performed By: #### 1 [id number], [id number], [id number] ####[facility] (DEFAULT)[address] [place] [address] Glucose [Mass/Vol] 137.0 mg/dL High 74.0-118.0 [facility] Comment on above: Order Comment: I spo ke with Esther Bautista RN and had asked if 0600 blood work had be done at 0600. She said no that they can be done at morning blood work draws at 0430. 07/21/2022 04:08:38 EDT Performed By: #### 1 [id number], [id number], [id number] ####[facility] (DEFAULT)[address] [place] [address] Osmolality 291 mOsm/L Invalid Interpretation Code [facility] Comment on above: Order Comment: I spo ke with Esther Bautista RN and had asked if 0600 blood work had be done at 0600. She said no that they can be done at morning blood work draws at 0430. 07/21/2022 04:08:38 EDT Performed By: #### 1 [id number], [id number], [id number] ####[facility] (DEFAULT)[address] [place] [address] Potassium [Moles/Vol] 5.7 mmol/L High 3.6-5.1 [facility] Comment on above: Order Comment: I spo ke with Esther Bautista RN and had asked if 0600 blood work had be done at 0600. She said no that they can be done at morning blood work draws at 0430. 07/21/2022 04:08:38 EDT Performed By: #### 1 [id number], [id number], [id number] ####[facility] (DEFAULT)[address] [place] [address] Sodium [Moles/Vol] 136.0 mmol/L Normal 136.0-144.0 [facility] Comment on above: Order Comment: I spo ke with Esther Bautista RN and had asked if 0600 blood work had be done at 0600. She said no that they can be done at morning blood work draws at 0430. 07/21/2022 04:08:38 EDT Performed By: #### 1 [id number], [id number], [id number] ####[facility] (DEFAULT)[address] [place] [address] 05269 Urea nitrogen [Mass/Vol] 59 mg/dL High 8-26 [facility] Comment on above: Order Comment: I spo ke with Esther Bautista RN and had asked if 0600 blood work had be done at 0600. She said no that they can be done at morning blood work draws at 0430. 07/21/2022 04:08:38 EDT Performed By: #### 1 [id number], [id number], [id number] ####[facility] (DEFAULT)[address] [place] [address] 13319 Urea nitrogen/Creatinine [Mass ratio] 44.0 mg/mg High 4.6-16.2 [facility] Comment on above: Order Comment: I spo ke with Esther Bautista RN and had asked if 0600 blood work had be done at 0600. She said no that they can be done at morning blood work draws at 0430. 07/21/2022 04:08:38 EDT Performed By: #### 1 [id number], [id number], [id number] ####[facility] (DEFAULT)[address] [place] [address] 23787 CBC w/ Auto Diffon Erythrocyte distribution width (RBC) [Ratio] 13.3 % Normal 11.5-15.0 [facility] Comment on above: Order Comment: I spo ke with Esther Bautista RN and had asked if 0600 blood work had be done at 0600. She said no that they can be done at morning blood work draws at 0430. 07/21/2022 04:08:38 EDT Performed By: #### 1 [id number], [id number], [id number] ####[facility] (DEFAULT)[address] [place] [address] 33254 Hematocrit (Bld) [Volume fraction] 32.3 % Low 34.8-51.9 [facility] Comment on above: Order Comment: I spo ke with Esther Bautista RN and had asked if 0600 blood work had be done at 0600. She said no that they can be done at morning blood work draws at 0430. 07/21/2022 04:08:38 EDT Performed By: #### 1 [id number], [id number], [id number] ####[facility] (DEFAULT)[address] [place] [address] 85286 Hemoglobin (Bld) [Mass/Vol] 10.4 g/dL Low 11.8-17.7 [facility] Comment on above: Order Comment: I spo ke with Esther Bautista RN and had asked if 0600 blood work had be done at 0600. She said no that they can be done at morning blood work draws at 0430. 07/21/2022 04:08:38 EDT Performed By: #### 1 [id number], [id number], [id number] ####[facility] (DEFAULT)[address] [place] [address] 07123 Instr WBC 8.6 x10 Invalid Interpretation Code [facility] Comment on above: Order Comment: I spo ke with Esther Bautista RN and had asked if 0600 blood work had be done at 0600. She said no that they can be done at morning blood work draws at 0430. 07/21/2022 04:08:38 EDT Performed By: #### 1 [id number], [id number], [id number] ####[facility] (DEFAULT)[address] [place] [address] 51699 Man Diff? Auto Normal [facility] Comment on above: Order Comment: I spo ke with Esther Bautista RN and had asked if 0600 blood work had be done at 0600. She said no that they can be done at morning blood work draws at 0430. 07/21/2022 04:08:38 EDT Performed By: #### 1 [id number], [id number], [id number] ####[facility] (DEFAULT)[address] [place] [address] 10077 MCH (RBC) [Entitic mass] 29 pg Normal 24-34 [facility] Comment on above: Order Comment: I spo ke with Esther Bautista RN and had asked if 0600 blood work had be done at 0600. She said no that they can be done at morning blood work draws at 0430. 07/21/2022 04:08:38 EDT Performed By: #### 1 [id number], [id number], [id number] ####[facility] (DEFAULT)[address] [place] [address] 14809 MCHC (RBC) [Mass/Vol] 32 g/dL Normal 26-37 [facility] Comment on above: Order Comment: I spo ke with Esther Bautista RN and had asked if 0600 blood work had be done at 0600. She said no that they can be done at morning blood work draws at 0430. 07/21/2022 04:08:38 EDT Performed By: #### 1 [id number], [id number], [id number] ####[facility] (DEFAULT)[address] [place] [address] 32072 MCV (RBC) [Entitic vol] 91 fL Normal 81-100 [facility] Comment on above: Order Comment: I spo ke with Esther Bautista RN and had asked if 0600 blood work had be done at 0600. She said no that they can be done at morning blood work draws at 0430. 07/21/2022 04:08:38 EDT Performed By: #### 1 [id number], [id number], [id number] ####[facility] (DEFAULT)[address] [place] [address] 68702 Platelet 250 x10 Normal 138-427 [facility] Comment on above: Order Comment: I spo ke with Esther Buatista RN and had asked if 0600 blood work had be done at 0600. She said no that they can be done at morning blood work draws at 0430. 07/21/2022 04:08:38 EDT Performed By: #### 1 [id number], [id number], [id number] ####[facility] (DEFAULT)[address] [place] [address] 25815 Platelet mean volume (Bld) [Entitic vol] 11.2 fL High 6.3-10.2 [facility] Comment on above: Order Comment: I spo ke with Esther Bautista RN and had asked if 0600 blood work had be done at 0600. She said no that they can be done at morning blood work draws at 0430. 07/21/2022 04:08:38 EDT Performed By: #### 1 [id number], [id number], [id number] ####[facility] (DEFAULT)[address] [place] [address] 68307 RBC 3.54 x10 Low 3.70-5.30 [facility] Comment on above: Order Comment: I spo ke with Esther Bautista RN and had asked if 0600 blood work had be done at 0600. She said no that they can be done at morning blood work draws at 0430. 07/21/2022 04:08:38 EDT Performed By: #### 1 [id number], [id number], [id number] ####[facility] (DEFAULT)[address] [place] [address] 11546 WBC 8.6 x10 Normal 3.5-10.5 [facility] Comment on above: Order Comment: I spo ke with Esther Bautista RN and had asked if 0600 blood work had be done at 0600. She said no that they can be done at morning blood work draws at 0430. 07/21/2022 04:08:38 EDT Performed By: #### 1 [id number], [id number], [id number] ####[facility] (DEFAULT)[address] [place] [address] 15176 Coding Summaryon 07-21-2022 Coding Summary Normal [facility] Nutrition Noteon 07-21-2022 Nutrition Note Normal [facility] POCT Glucose Levelon 022 Glucose [Mass/Vol] 360 mg/dL High 74-118 [facility] Comment on above: Performed By: #### 4 [id number] ####[facility] (DEFAULT)[address] [place] [address] 74101 Glucose [Mass/Vol] 274 mg/dL High 74-118 [facility] Comment on above: Performed By: #### 4 [id number] ####[facility] (DEFAULT)[address] [place] [address] 77884 Glucose [Mass/Vol] 128 mg/dL High 74-118 [facility] Comment on above: Performed By: #### 4 [id number] ####[facility] (DEFAULT)[address] [place] [address] 77796 US Kidney/Bladder Completeon 07-21-2022 US Kidney/Bladder Complete Normal [facility] .Auto Diff 1on 07-20-2022 Auto [place] % 7 % Normal 1-12 [facility] Comment on above: Performed By: #### 1 [id number], [id number], [id number] ####[facility] (DEFAULT)[address] [place] [address] 75305 Baso Abs# 0.0 x10 Normal 0.0-0.2 [facility] Comment on above: Performed By: #### 1 [id number], [id number], [id number] ####[facility] (DEFAULT)[address] [place] [address] 82690 Basophils/100 WBC (Bld) 0.2 % Normal 0.2-2.0 [facility] Comment on above: Performed By: #### 1 [id number], [id number], [id number] ####[facility] (DEFAULT)[address] [place] [address] 34411 Eos Abs# 0.4 x10 Normal 0.0-0.4 [facility] Comment on above: Performed By: #### 1 [id number], [id number], [id number] ####[facility] (DEFAULT)[address] [place] [address] 30631 Eosinophils/100 WBC (Bld) 4.5 % High 0.9-4.0 [facility] Comment on above: Performed By: #### 1 [id number], [id number], [id number] ####[facility] (DEFAULT)[address] [place] [address] 11861 Lymph Abs# 3.3 x10 High 1.3-2.9 [facility] Comment on above: Performed By: #### 1 [id number], [id number], [id number] ####[facility] (DEFAULT)[address] [place] [address] 23381 Lymphocytes/100 WBC (Bld) 33 % Normal 14-48 [facility] Comment on above: Performed By: #### 1 [id number], [id number], [id number] ####[facility] (DEFAULT)[address] [place] [address] 50220 [place] Abs# 0.7 x10 Normal 0.0-0.8 [facility] Comment on above: Performed By: #### 1 [id number], [id number], [id number] ####[facility] (DEFAULT)[address] [place] [address] Neut Abs# 5.5 x10 Normal 1.5-9.2 [facility] Comment on above: Performed By: #### 1 [id number], [id number], [id number] ####[facility] (DEFAULT)[address] [place] [address] Neutrophils/100 WBC (Bld) 55 % Normal 44-88 [facility] Comment on above: Performed By: #### 1 [id number], [id number], [id number] ####[facility] (DEFAULT)[address] [place] [address] BMP Standardon 07-20-2022 eGFR Non AA 44 mL/min/1.73m2 Invalid Interpretation Code [facility] Comment on above: Order Comment: I spo ke with Zahraa Saldivar RN on [address] [place] [address] and asked if this blood work needs to be done at 0600 or if it can be done sooner. She said that it can be done sooner. 07/20/2022 04:10:20 EDT Performed By: #### 1 [id number], [id number], [id number] ####[facility] (DEFAULT)[address] [place] [address] eGFR AA 53 mL/min/1.73m2 Invalid Interpretation Code [facility] Comment on above: Order Comment: I spo ke with Zahraa Saldivar RN on [address] [place] [address] and asked if this blood work needs to be done at 0600 or if it can be done sooner. She said that it can be done sooner. 07/20/2022 04:10:20 EDT Result Comment: Station Helper lokesh Kidney disease could be indicated at eGFRs of less than 60 ml/min/1.73m2. Kidney Failure is indicated at less than 15 ml/min/1.73m2 Performed By: #### 1 [id number], [id number], [id number] ####[facility] (DEFAULT)[address] [place] [address] 22228 Anion gap [Moles/Vol] 12.0 mmol/L Normal 5.0-19.0 [facility] Comment on above: Order Comment: I spo ke with Zahraa Saldivar RN on [address] [place] [address] and asked if this blood work needs to be done at 0600 or if it can be done sooner. She said that it can be done sooner. 07/20/2022 04:10:20 EDT Performed By: #### 1 [id number], [id number], [id number] ####[facility] (DEFAULT)[address] [place] [address] 44823 Calcium [Mass/Vol] 9.1 mg/dL Normal 8.9-10.3 [facility] Comment on above: Order Comment: I spo ke with Zahraa Saldivar RN on [address] [place] [address] and asked if this blood work needs to be done at 0600 or if it can be done sooner. She said that it can be done sooner. 07/20/2022 04:10:20 EDT Performed By: #### 1 [id number], [id number], [id number] ####[facility] (DEFAULT)[address] [place] [address] 22395 Chloride [Moles/Vol] 104 mmol/L Normal 101-111 [facility] Comment on above: Order Comment: I spo ke with Zahraa Saldivar RN on [address] [place] [address] and asked if this blood work needs to be done at 0600 or if it can be done sooner. She said that it can be done sooner. 07/20/2022 04:10:20 EDT Performed By: #### 1 [id number], [id number], [id number] ####[facility] (DEFAULT)[address] [place] [address] 34389 CO2 [Moles/Vol] 24 mmol/L Normal 21-32 [facility] Comment on above: Order Comment: I spo ke with Zahraa Saldivar RN on [address] [place] [address] and asked if this blood work needs to be done at 0600 or if it can be done sooner. She said that it can be done sooner. 07/20/2022 04:10:20 EDT Performed By: #### 1 [id number], [id number], [id number] ####[facility] (DEFAULT)[address] [place] [address] 15015 Creatinine [Mass/Vol] 1.58 mg/dL High 0.90-1.30 [facility] Comment on above: Order Comment: I spo ke with Zahraa Saldivar RN on [address] [place] [address] and asked if this blood work needs to be done at 0600 or if it can be done sooner. She said that it can be done sooner. 07/20/2022 04:10:20 EDT Performed By: #### 1 [id number], [id number], [id number] ####[facility] (DEFAULT)[address] [place] [address] 63777 Glucose [Mass/Vol] 144.0 mg/dL High 74.0-118.0 [facility] Comment on above: Order Comment: I spo ke with Zahraa Saldivar RN on [address] [place] [address] and asked if this blood work needs to be done at 0600 or if it can be done sooner. She said that it can be done sooner. 07/20/2022 04:10:20 EDT Performed By: #### 1 [id number], [id number], [id number] ####[facility] (DEFAULT)[address] [place] [address] 15818 Osmolality 292 mOsm/L Invalid Interpretation Code [facility] Comment on above: Order Comment: I spo ke with Zahraa Saldivar RN on [address] [place] [address] and asked if this blood work needs to be done at 0600 or if it can be done sooner. She said that it can be done sooner. 07/20/2022 04:10:20 EDT Performed By: #### 1 [id number], [id number], [id number] ####[facility] (DEFAULT)[address] [place] [address] 38429 Potassium [Moles/Vol] 6.0 mmol/L High 3.6-5.1 [facility] Comment on above: Order Comment: I spo ke with Zahraa Saldivar RN on [address] [place] [address] and asked if this blood work needs to be done at 0600 or if it can be done sooner. She said that it can be done sooner. 07/20/2022 04:10:20 EDT Performed By: #### 1 [id number], [id number], [id number] ####[facility] (DEFAULT)[address] [place] [address] 41707 Sodium [Moles/Vol] 134.0 mmol/L Low 136.0-144.0 [facility] Comment on above: Order Comment: I spo ke with Zahraa Saldivar RN on [address] [place] [address] and asked if this blood work needs to be done at 0600 or if it can be done sooner. She said that it can be done sooner. 07/20/2022 04:10:20 EDT Performed By: #### 1 [id number], [id number], [id number] ####[facility] (DEFAULT)[address] [place] [address] 64212 Urea nitrogen [Mass/Vol] 71 mg/dL High 8-26 [facility] Comment on above: Order Comment: I spo ke with Zahraa Saldivar RN on [address] [place] [address] and asked if this blood work needs to be done at 0600 or if it can be done sooner. She said that it can be done sooner. 07/20/2022 04:10:20 EDT Performed By: #### 1 [id number], [id number], [id number] ####[facility] (DEFAULT)[address] [place] [address] 77050 Urea nitrogen/Creatinine [Mass ratio] 45.0 mg/mg High 4.6-16.2 [facility] Comment on above: Order Comment: I spo ke with Zahraa Saldivar RN on [address] [place] [address] and asked if this blood work needs to be done at 0600 or if it can be done sooner. She said that it can be done sooner. 07/20/2022 04:10:20 EDT Performed By: #### 1 [id number], [id number], [id number] ####[facility] (DEFAULT)[address] [place] [address] 50252 CBC w/ Auto Diffon 2 Erythrocyte distribution width (RBC) [Ratio] 13.2 % Normal 11.5-15.0 [facility] Comment on above: Order Comment: I spo ke with Zahraa Saldivar RN on [address] [place] [address] and asked if this blood work needs to be done at 0600 or if it can be done sooner. She said that it can be done sooner. 07/20/2022 04:10:20 EDT Performed By: #### 1 [id number], [id number], [id number] ####[facility] (DEFAULT)[address] [place] [address] Hematocrit (Bld) [Volume fraction] 32.0 % Low 34.8-51.9 [facility] Comment on above: Order Comment: I spo ke with Zahraa Saldivar RN on [address] [place] [address] and asked if this blood work needs to be done at 0600 or if it can be done sooner. She said that it can be done sooner. 07/20/2022 04:10:20 EDT Performed By: #### 1 [id number], [id number], [id number] ####[facility] (DEFAULT)[address] [place] [address] 45039 Hemoglobin (Bld) [Mass/Vol] 10.2 g/dL Low 11.8-17.7 [facility] Comment on above: Order Comment: I spo ke with Zahraa Saldivar RN on [address] [place] [address] and asked if this blood work needs to be done at 0600 or if it can be done sooner. She said that it can be done sooner. 07/20/2022 04:10:20 EDT Performed By: #### 1 [id number], [id number], [id number] ####[facility] (DEFAULT)[address] [place] [address] 49384 Instr WBC 10.0 x10 Invalid Interpretation Code [facility] Comment on above: Order Comment: I spo ke with Zahraa Saldivar RN on [address] [place] [address] and asked if this blood work needs to be done at 0600 or if it can be done sooner. She said that it can be done sooner. 07/20/2022 04:10:20 EDT Performed By: #### 1 [id number], [id number], [id number] ####[facility] (DEFAULT)[address] [place] [address] 22833 Man Diff? Auto Normal [facility] Comment on above: Order Comment: I spo ke with Zahraa Saldivar RN on [address] [place] [address] and asked if this blood work needs to be done at 0600 or if it can be done sooner. She said that it can be done sooner. 07/20/2022 04:10:20 EDT Performed By: #### 1 [id number], [id number], [id number] ####[facility] (DEFAULT)[address] [place] [address] 46620 MCH (RBC) [Entitic mass] 29 pg Normal 24-34 [facility] Comment on above: Order Comment: I spo ke with Zahraa Saldivar RN on [address] [place] [address] and asked if this blood work needs to be done at 0600 or if it can be done sooner. She said that it can be done sooner. 07/20/2022 04:10:20 EDT Performed By: #### 1 [id number], [id number], [id number] ####[facility] (DEFAULT)[address] [place] [address] 28964 MCHC (RBC) [Mass/Vol] 32 g/dL Normal 26-37 [facility] Comment on above: Order Comment: I spo ke with Zahraa Saldivar RN on [address] [place] [address] and asked if this blood work needs to be done at 0600 or if it can be done sooner. She said that it can be done sooner. 07/20/2022 04:10:20 EDT Performed By: #### 1 [id number], [id number], [id number] ####[facility] (DEFAULT)[address] [place] [address] 22497 MCV (RBC) [Entitic vol] 90 fL Normal 81-100 [facility] Comment on above: Order Comment: I spo ke with Zahraa Saldivar RN on [address] [place] [address] and asked if this blood work needs to be done at 0600 or if it can be done sooner. She said that it can be done sooner. 07/20/2022 04:10:20 EDT Performed By: #### 1 [id number], [id number], [id number] ####[facility] (DEFAULT)[address] [place] [address] 66682 Platelet 235 x10 Normal 138-427 [facility] Comment on above: Order Comment: I spo ke with Zahraa Saldivar RN on [address] [place] [address] and asked if this blood work needs to be done at 0600 or if it can be done sooner. She said that it can be done sooner. 07/20/2022 04:10:20 EDT Performed By: #### 1 [id number], [id number], [id number] ####[facility] (DEFAULT)[address] [place] [address] 80895 Platelet mean volume (Bld) [Entitic vol] 12.3 fL High 6.3-10.2 [facility] Comment on above: Order Comment: I spo ke with Zahraa Saldivar RN on [address] [place] [address] and asked if this blood work needs to be done at 0600 or if it can be done sooner. She said that it can be done sooner. 07/20/2022 04:10:20 EDT Performed By: #### 1 [id number], [id number], [id number] ####[facility] (DEFAULT)[address] [place] [address] 99558 RBC 3.55 x10 Low 3.70-5.30 [facility] Comment on above: Order Comment: I spo ke with Zahraa Saldivar RN on [address] [place] [address] and asked if this blood work needs to be done at 0600 or if it can be done sooner. She said that it can be done sooner. 07/20/2022 04:10:20 EDT Performed By: #### 1 [id number], [id number], [id number] ####[facility] (DEFAULT)[address] [place] [address] 02445 WBC 10.0 x10 Normal 3.5-10.5 [facility] Comment on above: Order Comment: I spo ke with Zahraa Saldivar RN on [address] [place] [address] and asked if this blood work needs to be done at 0600 or if it can be done sooner. She said that it can be done sooner. 07/20/2022 04:10:20 EDT Performed By: #### 1 [id number], [id number], [id number] ####[facility] (DEFAULT)[address] [place] [address] 80229 Glucoseon 07-20-2022 Glucose [Mass/Vol] 424.0 mg/dL High 74.0-118.0 [facility] Comment on above: Performed By: #### 2 [id number] ####[facility] (DEFAULT)[address] [place] [address] 35802 POCT Glucose Levelon 022 Glucose [Mass/Vol] 473 mg/dL Critically abnormal [address] [place] [address] Comment on above: Performed By: #### 4 [id number] ####[facility] (DEFAULT)[address] [place] [address] 41674 Glucose [Mass/Vol] 522 mg/dL Critically abnormal [address] [place] [address] Comment on above: Performed By: #### 4 [id number] ####[facility] (DEFAULT)[address] [place] [address] 36049 Glucose [Mass/Vol] 292 mg/dL High [address] [place] [address] Comment on above: Performed By: #### 4 [id number] ####[facility] (DEFAULT)[address] [place] [address] 94923 Glucose [Mass/Vol] 293 mg/dL High [address] [place] [address] Comment on above: Performed By: #### 4 [id number] ####[facility] (DEFAULT)[address] [place] [address] 90875 Glucose [Mass/Vol] 110 mg/dL Normal [address] Comment on above: Performed By: #### 4 [id number] ####[facility] (DEFAULT)[address] [place] [address] 11481 Glucose [Mass/Vol] 137 mg/dL High [address] [place] [address] Comment on above: Performed By: #### 4 [id number] ####[facility] (DEFAULT)[address] [place] [address] 91734 Progress Note - Nurseon - Progress Note - Nurse Normal [facility] .Auto Diff 1on 07-19-2022 Auto [place] % 8 % Normal 10-16 [facility] Comment on above: Performed By: #### 1 [id number], [id number], [id number] ####[facility] (DEFAULT)[address] [place] [address] 50407 Baso Abs# 0.0 x10 Normal 0.0-0.2 [facility] Comment on above: Performed By: #### 1 [id number], [id number], [id number] ####[facility] (DEFAULT)[address] [place] [address] 85187 Basophils/100 WBC (Bld) 0.2 % Normal 0.2-2.0 [facility] Comment on above: Performed By: #### 1 [id number], [id number], [id number] ####[facility] (DEFAULT)[address] [place] [address] 67694 Eos Abs# 0.6 x10 High 0.0-0.4 [facility] Comment on above: Performed By: #### 1 [id number], [id number], [id number] ####[facility] (DEFAULT)[address] [place] [address] 62391 Eosinophils/100 WBC (Bld) 4.6 % High 0.9-4.0 [facility] Comment on above: Performed By: #### 1 [id number], [id number], [id number] ####[facility] (DEFAULT)[address] [place] [address] 30910 Lymph Abs# 3.2 x10 High 1.3-2.9 [facility] Comment on above: Performed By: #### 1 [id number], [id number], [id number] ####[facility] (DEFAULT)[address] [place] [address] 52507 Lymphocytes/100 WBC (Bld) 27 % Normal 14-48 [facility] Comment on above: Performed By: #### 1 [id number], [id number], [id number] ####[facility] (DEFAULT)[address] [place] [address] 66762 [place] Abs# 0.9 x10 High 0.0-0.8 [facility] Comment on above: Performed By: #### 1 [id number], [id number], [id number] ####[facility] (DEFAULT)[address] [place] [address] Neut Abs# 7.3 x10 Normal 1.5-9.2 [facility] Comment on above: Performed By: #### 1 [id number], 9288926, [id number] ####[facility] (DEFAULT)[address] [place] [address] 26907 Neutrophils/100 WBC (Bld) 61 % Normal 44-88 [facility] Comment on above: Performed By: #### 1 [id number], [id number], [id number] ####[facility] (DEFAULT)[address] [place] [address] 09781[facility] Standardon 07-19-2022 eGFR Non AA 37 mL/min/1.73m2 Invalid Interpretation Code [facility] Comment on above: Performed By: #### 1 [id number], [id number], [id number] ####[facility] (DEFAULT)[address] [place] [address] 56757 eGFR AA 45 mL/min/1.73m2 Invalid Interpretation Code [facility] Comment on above: Result Comment: Station Helper lokesh Kidney disease could be indicated at eGFRs of less than 60 ml/min/1.73m2. Kidney Failure is indicated at less than 15 ml/min/1.73m2 Performed By: #### 1 [id number], 3543556, [id number] ####[facility] (DEFAULT)[address] [place] [address] 34769 Anion gap [Moles/Vol] 16.0 mmol/L Normal 5.0-19.0 [facility] Comment on above: Performed By: #### 1 [id number], [id number], [id number] ####[facility] (DEFAULT)[address] [place] [address] 23929 Calcium [Mass/Vol] 9.0 mg/dL Normal 8.9-10.3 [facility] Comment on above: Performed By: #### 1 [id number], [id number], [id number] ####[facility] (DEFAULT)[address] [place] [address] 81961 Chloride [Moles/Vol] 102 mmol/L Normal 101-111 [facility] Comment on above: Performed By: #### 1 [id number], 9482282, [id number] ####[facility] (DEFAULT)[address] [place] [address] 17930 CO2 [Moles/Vol] 21 mmol/L Normal 21-32 [facility] Comment on above: Performed By: #### 1 [id number], 8190411, [id number] ####[facility] (DEFAULT)[address] [place] [address] 65127 Creatinine [Mass/Vol] 1.83 mg/dL High 0.90-1.30 [facility] Comment on above: Performed By: #### 1 [id number], 4520134, [id number] ####[facility] (DEFAULT)[address] [place] [address] 42422 Glucose [Mass/Vol] 180.0 mg/dL High 74.0-118.0 [facility] Comment on above: Performed By: #### 1 [id number], 8251159, [id number] ####[facility] (DEFAULT)[address] [place] [address] 98583 Osmolality 294 mOsm/L Invalid Interpretation Code [facility] Comment on above: Performed By: #### 1 [id number], [id number], [id number] ####[facility] (DEFAULT)[address] [place] [address] 11982 Potassium [Moles/Vol] 6.1 mmol/L High 3.6-5.1 [facility] Comment on above: Performed By: #### 1 [id number], 0135608, [id number] ####[facility] (DEFAULT)[address] [place] [address] 90113 Sodium [Moles/Vol] 133.0 mmol/L Low 136.0-144.0 [facility] Comment on above: Performed By: #### 1 [id number], [id number], [id number] ####[facility] (DEFAULT)[address] [place] [address] 19005 Urea nitrogen [Mass/Vol] 76 mg/dL High 8-26 [facility] Comment on above: Performed By: #### 1 [id number], 5203055, [id number] ####[facility] (DEFAULT)[address] [place] [address] Urea nitrogen/Creatinine [Mass ratio] 42.0 mg/mg High 4.6-16.2 [facility] Comment on above: Performed By: #### 1 [id number], 7076580, [id number] ####[facility] (DEFAULT)[address] [place] [address] CBC w/ Auto Diffon Erythrocyte distribution width (RBC) [Ratio] 13.2 % Normal 11.5-15.0 [facility] Comment on above: Performed By: #### 1 [id number], 5329936, [id number] ####[facility] (DEFAULT)[address] [place] [address] Hematocrit (Bld) [Volume fraction] 35.5 % Normal 34.8-51.9 [facility] Comment on above: Performed By: #### 1 [id number], 7887442, [id number] ####[facility] (DEFAULT)[address] [place] [address] Hemoglobin (Bld) [Mass/Vol] 11.5 g/dL Low 11.8-17.7 [facility] Comment on above: Performed By: #### 1 [id number], 7955782, [id number] ####[facility] (DEFAULT)[address] [place] [address] Instr WBC 12.1 x10 Invalid Interpretation Code [facility] Comment on above: Performed By: #### 1 [id number], 2065121, [id number] ####[facility] (DEFAULT)[address] [place] [address] Man Diff? Auto Normal [facility] Comment on above: Performed By: #### 1 [id number], 1033430, [id number] ####[facility] (DEFAULT)[address] [place] [address] 55834 MCH (RBC) [Entitic mass] 29 pg Normal 24-34 [facility] Comment on above: Performed By: #### 1 [id number], 4808910, [id number] ####[facility] (DEFAULT)[address] [place] [address] MCHC (RBC) [Mass/Vol] 32 g/dL Normal 26-37 [facility] Comment on above: Performed By: #### 1 [id number], 0715675, [id number] ####[facility] (DEFAULT)[address] [place] [address] MCV (RBC) [Entitic vol] 90 fL Normal 81-100 [facility] Comment on above: Performed By: #### 1 [id number], 1079546, [id number] ####[facility] (DEFAULT)[address] [place] [address] Platelet 182 x10 Normal 138-427 [facility] Comment on above: Performed By: #### 1 [id number], 5694447, [id number] ####[facility] (DEFAULT)[address] [place] [address] Platelet mean volume (Bld) [Entitic vol] 12.3 fL High 6.3-10.2 [facility] Comment on above: Performed By: #### 1 [id number], [id number], [id number] ####[facility] (DEFAULT)[address] [place] [address] RBC 3.93 x10 Normal 3.70-5.30 [facility] Comment on above: Performed By: #### 1 [id number], [id number], [id number] ####[facility] (DEFAULT)[address] [place] [address] WBC 12.1 x10 High 3.5-10.5 [facility] Comment on above: Performed By: #### 1 [id number], 9732754, [id number] ####[facility] (DEFAULT)[address] [place] [address] Glucoseon 07-19-2022 Glucose [Mass/Vol] 388.0 mg/dL High 74.0-118.0 [facility] Comment on above: Performed By: #### 2 [id number] ####[facility] (DEFAULT)[address] [place] [address] 90429 POCT Glucose Levelon 022 Glucose [Mass/Vol] 215 mg/dL High [address] [place] [address] Comment on above: Performed By: #### 4 [id number] ####[facility] (DEFAULT)[address] [place] [address] 25233 Glucose [Mass/Vol] 234 mg/dL High [address] [place] [address] Comment on above: Performed By: #### 4 [id number] ####[facility] (DEFAULT)[address] [place] [address] 05131 Glucose [Mass/Vol] 318 mg/dL High [address] [place] [address] Comment on above: Performed By: #### 4 [id number] ####[facility] (DEFAULT)[address] [place] [address] 21641 Glucose [Mass/Vol] 452 mg/dL Critically abnormal [address] [place] [address] Comment on above: Performed By: #### 4 [id number] ####[facility] (DEFAULT)[address] [place] [address] Glucose [Mass/Vol] 444 mg/dL Critically abnormal [address] [place] [address] Comment on above: Performed By: #### 4 [id number] ####[facility] (DEFAULT)[address] [place] [address] 99021 Glucose [Mass/Vol] 186 mg/dL High [address] [place] [address] Comment on above: Performed By: #### 4 [id number] ####[facility] (DEFAULT)[address] [place] [address] Pharmacy Noteon 07-19-2022 Pharmacy Note Normal [facility] UA w Culture if Ind Standard on 07-19-2022 Breakpoint UA Normal [facility] Comment on above: Performed By: #### 1 [id number] ####[facility] (DEFAULT)[address] [place] [address] 62040 Color (U) Yellow Normal [facility] Comment on above: Performed By: #### 1 [id number] ####[facility] (DEFAULT)[address] [place] [address] Culture? Not Indicated Invalid Interpretation Code [facility] Comment on above: Result Comment: Resu lt created by rule GL_[email or web address] Performed By: #### 1 [id number] ####[facility] (DEFAULT)[address] [place] [address] Glucose (U) [Mass/Vol] 100 mg/dL Normal [facility] Comment on above: Performed By: #### 1 [id number] ####[facility] (DEFAULT)[address] [place] [address] Ketones Ql (U) TRACE Normal [facility] Comment on above: Performed By: #### 1 [id number] ####[facility] (DEFAULT)[address] [place] [address] Micro? Not Indicated Invalid Interpretation Code [facility] Comment on above: Result Comment: Resu lt created by rule GL_MAGR_ADD_UA_MICRO Performed By: #### 1 [id number] ####[facility] (DEFAULT)[address] [place] [address] UA Bilirubin Negative Normal [facility] Comment on above: Performed By: #### 1 [id number] ####[facility] (DEFAULT)[address] [place] [address] UA Blood Negative Normal NEGATIVE [facility] Comment on above: Performed By: #### 1 [id number] ####[facility] (DEFAULT)[address] [place] [address] 25781 UA Clarity CLEAR Normal CLEAR [facility] Comment on above: Performed By: #### 1 [id number] ####[facility] (DEFAULT)[address] [place] [address] 24287 UA Leuk Est Negative Normal NEGATIVE [facility] Comment on above: Performed By: #### 1 [id number] ####[facility] (DEFAULT)[address] [place] [address] 34776 UA Nitrite Negative Normal NEGATIVE [facility] Comment on above: Performed By: #### 1 [id number] ####[facility] (DEFAULT)[address] [place] [address] 92427 UA pH 5.5 Normal 5-8 [facility] Comment on above: Performed By: #### 1 [id number] ####[facility] (DEFAULT)[address] [place] [address] 19117 UA Protein Negative Normal NEGATIVE [facility] Comment on above: Performed By: #### 1 [id number] ####[facility] (DEFAULT)[address] [place] [address] 19687 UA Spec Grav 1.015 Normal 1.001-1.035 [facility] Comment on above: Performed By: #### 1 [id number] ####[facility] (DEFAULT)[address] [place] [address] 41982 UA Urobilinogen 0.2 mg/dL Normal 0.2-1.0 [facility] Comment on above: Performed By: #### 1 [id number] ####[facility] (DEFAULT)[address] [place] [address] 94699 Urine Source Clean Catch Normal [facility] Comment on above: Performed By: #### 1 [id number] ####[facility] (DEFAULT)[address] [place] [address] 76169 XR Abdomen Single View (KUB) on 07-19-2022 XR Abdomen Single View (KUB) Normal [facility] Nutrition Noteon 07-18-2022 Nutrition Note Normal [facility] POCT Glucose Levelon 022 Glucose [Mass/Vol] 350 mg/dL High 74-118 [facility] Comment on above: Performed By: #### 4 [id number] ####[facility] (DEFAULT)[address] [place] [address] 18837 Glucose [Mass/Vol] 366 mg/dL High 74-118 [facility] Comment on above: Performed By: #### 4 [id number] ####[facility] (DEFAULT)[address] [place] [address] 99877 Glucose [Mass/Vol] 383 mg/dL High 74-118 [facility] Comment on above: Performed By: #### 4 [id number] ####[facility] (DEFAULT)[address] [place] [address] 65436 Glucose [Mass/Vol] 112 mg/dL Normal 74-118 [facility] Comment on above: Performed By: #### 4 [id number] ####[facility] (DEFAULT)[address] [place] [address] 15001 Glucose [Mass/Vol] 109 mg/dL Normal [address] [place] [address] Comment on above: Performed By: #### 4 [id number] ####[facility] (DEFAULT)[address] [place] [address] 78697 Glucose [Mass/Vol] 136 mg/dL High [address] [place] [address] Comment on above: Performed By: #### 4 [id number] ####[facility] (DEFAULT)[address] [place] [address] 22141 Consent Formson 07-17-2022 Consent Forms [id number]#1.0 0OTGTIFF Normal [facility] POCT Glucose Levelon 022 Glucose [Mass/Vol] 327 mg/dL High [address] [place] [address] Comment on above: Performed By: #### 4 [id number] ####[facility] (DEFAULT)[address] [place] [address] 05455 Glucose [Mass/Vol] 220 mg/dL High [address] [place] [address] Comment on above: Performed By: #### 4 [id number] ####[facility] (DEFAULT)[address] [place] [address] 44069 Glucose [Mass/Vol] 245 mg/dL High [address] [place] [address] Comment on above: Performed By: #### 4 [id number] ####[facility] (DEFAULT)[address] [place] [address] 85355 Glucose [Mass/Vol] 81 mg/dL Normal [address] [place] [address] Comment on above: Performed By: #### 4 [id number] ####[facility] (DEFAULT)[address] [place] [address] 15056 Glucose [Mass/Vol] 49 mg/dL Critically abnormal [address] [place] [address] Comment on above: Performed By: #### 4 [id number] ####[facility] (DEFAULT)[address] [place] [address] 13658 Telemetry Stripson Telemetry Strips [id number]#1.00 OTGTIFF [facility] Coding Queryon 07-16-2022 Coding Query Normal [facility] Glucoseon 07-16-2022 Glucose [Mass/Vol] 402.0 mg/dL High 74.0-118.0 [facility] Comment on above: Performed By: #### 2 [id number] ####[facility] (DEFAULT)[address] [place] [address] 71835 Nutrition Noteon 07-16-2022 Nutrition Note Normal [facility] POCT Glucose Levelon 022 Glucose [Mass/Vol] 455 mg/dL Critically abnormal [address] [place] [address] Comment on above: Performed By: #### 4 [id number] ####[facility] (DEFAULT)[address] [place] [address] 93128 Glucose [Mass/Vol] 422 mg/dL Critically abnormal [address] [place] [address] Comment on above: Performed By: #### 4 [id number] ####[facility] (DEFAULT)[address] [place] [address] 43855 Glucose [Mass/Vol] 290 mg/dL High [address] [place] [address] Comment on above: Performed By: #### 4 [id number] ####[facility] (DEFAULT)[address] [place] [address] 66959 Glucose [Mass/Vol] 313 mg/dL High [address] [place] [address] Comment on above: Performed By: #### 4 [id number] ####[facility] (DEFAULT)[address] [place] [address] 56745 Glucose [Mass/Vol] 196 mg/dL High [address] Comment on above: Performed By: #### 4 [id number] ####[facility] (DEFAULT)[address] [place] [address] 16436 Provider Orderson 07-16-2022 Provider Orders [id number]#1.0 0OTGTIFF [facility] Telemetry Stripson Telemetry Strips [id number] 00 [id number]#1.0 0OTGTIFF Normal [facility] .Auto Diff 1on 07-15-2022 Auto [place] % 6 % Normal - [facility] Comment on above: Performed By: #### 1 [id number], 3538304, 3738869, [id number] ####[facility] (DEFAULT)[address] [place] [address] 28966 Baso Abs# 0.0 x10 Normal 0.0-0.2 [facility] Comment on above: Performed By: #### 1 [id number], 2221824, 8971298, 94394465 ####[facility] (DEFAULT)[address] [place] [address] Basophils/100 WBC (Bld) 0.2 % Normal 0.2-2.0 [facility] Comment on above: Performed By: #### 1 [id number], 4366931, 8556186, 83595612 ####[facility] (DEFAULT)[address] [place] [address] 46313 Eos Abs# 0.6 x10 High 0.0-0.4 [facility] Comment on above: Performed By: #### 1 [id number], 5038722, 7802704, [id number] ####[facility] (DEFAULT)[address] [place] [address] 47552 Eosinophils/100 WBC (Bld) 6.5 % High 0.9-4.0 [facility] Comment on above: Performed By: #### 1 [id number], 2442404, 0245649, 13476002 ####[facility] (DEFAULT)[address] [place] [address] 38990 Lymph Abs# 3.5 x10 High 1.3-2.9 [facility] Comment on above: Performed By: #### 1 [id number], 9375415, 6013232, 88155537 ####[facility] (DEFAULT)[address] [place] [address] 86252 Lymphocytes/100 WBC (Bld) 39 % Normal 14-48 [facility] Comment on above: Performed By: #### 1 [id number], 0417302, 1622258, 69823222 ####[facility] (DEFAULT)[address] [place] [address] [place] Abs# 0.6 x10 Normal 0.0-0.8 [facility] Comment on above: Performed By: #### 1 [id number], 7818822, 3612370, 80173325 ####[facility] (DEFAULT)[address] [place] [address] Neut Abs# 4.2 x10 Normal 1.5-9.2 [facility] Comment on above: Performed By: #### 1 [id number], 4735507, 8750744, 55096312 ####[facility] (DEFAULT)[address] [place] [address] Neutrophils/100 WBC (Bld) 47 % Normal 44-88 [facility] Comment on above: Performed By: #### 1 [id number], 3314572, 9848819, 95890309 ####[facility] (DEFAULT)[address] [place] [address] CBC w/ Auto Diffon 2 Erythrocyte distribution width (RBC) [Ratio] 13.2 % Normal 11.5-15.0 [facility] Comment on above: Performed By: #### 1 [id number], 8844468, 2575526, 77482047 ####[facility] (DEFAULT)[address] [place] [address] Hematocrit (Bld) [Volume fraction] 35.0 % Normal 34.8-51.9 [facility] Comment on above: Performed By: #### 1 [id number], 2933135, 2534021, 14210837 ####[facility] (DEFAULT)[address] [place] [address] Hemoglobin (Bld) [Mass/Vol] 11.3 g/dL Low 11.8-17.7 [facility] Comment on above: Performed By: #### 1 [id number], 4460343, 5414865, 96732354 ####[facility] (DEFAULT)[address] [place], [place] [id number] Instr WBC 8.9 x10 Invalid Interpretation Code [facility] Comment on above: Performed By: #### 1 [id number], 8390289, 6361716, 03443017 ####[facility] (DEFAULT)[address] [place] [address] Man Diff? Auto Normal [facility] Comment on above: Performed By: #### 1 [id number], 6691286, 0684917, 18485836 ####[facility] (DEFAULT)[address] [place] [address] 80457 MCH (RBC) [Entitic mass] 29 pg Normal 24-34 [facility] Comment on above: Performed By: #### 1 [id number], 3006110, 7055230, 66915900 ####[facility] (DEFAULT)[address] [place] [address] MCHC (RBC) [Mass/Vol] 32 g/dL Normal 26-37 [facility] Comment on above: Performed By: #### 1 [id number], 4844987, 2356247, 82183055 ####[facility] (DEFAULT)[address] [place] [address] 73374 MCV (RBC) [Entitic vol] 90 fL Normal 81-100 [facility] Comment on above: Performed By: #### 1 [id number], 4336384, 7854514, 68538530 ####[facility] (DEFAULT)[address] [place] [address] Platelet 228 x10 Normal 138-427 [facility] Comment on above: Performed By: #### 1 [id number], 4468163, 6889458, 35399034 ####[facility] (DEFAULT)[address] [place] [address] 58518 Platelet mean volume (Bld) [Entitic vol] 11.4 fL High 6.3-10.2 [facility] Comment on above: Performed By: #### 1 [id number], 8718261, 1262114, 58193470 ####[facility] (DEFAULT)[address] [place] [address] RBC 3.91 x10 Normal 3.70-5.30 [facility] Comment on above: Performed By: #### 1 [id number], 1012038, 5713645, 22000022 ####[facility] (DEFAULT)[address] [place] [address] WBC 8.9 x10 Normal 3.5-10.5 [facility] Comment on above: Performed By: #### 1 [id number], 1431350, 6408229, 95459083 ####[facility] (DEFAULT)[address] [place] [address] CMP Standardon 07-15-2022 eGFR Non AA 60 mL/min/1.73m2 Invalid Interpretation Code [facility] Comment on above: Performed By: #### 1 [id number], 6878678, 5477903, 38805272 ####[facility] (DEFAULT)[address] [place] [address] eGFR AA >60 Invalid Interpretation Code [facility] Comment on above: Result Comment: Station Helper lokesh Kidney disease could be indicated at eGFRs of less than 60 ml/min/1.73m2. Kidney Failure is indicated at less than 15 ml/min/1.73m2 Performed By: #### 1 [id number], 8781060, 0326273, 42185929 ####[facility] (DEFAULT)[address] [place] [address] Albumin [Mass/Vol] 3.4 g/dL Low 3.5-5.0 [facility] Comment on above: Performed By: #### 1 [id number], 2677900, 8899075, 00893823 ####[facility] (DEFAULT)[address] [place] [address] 06752 Albumin/Globulin [Mass ratio] 1.0 {ratio} Low 1.4-2.6 [facility] Comment on above: Performed By: #### 1 [id number], 3551017, 2037062, 51434457 ####[facility] (DEFAULT)[address] [place] [address] Alk Phos 57 IU/L Normal 32-91 [facility] Comment on above: Performed By: #### 1 230782548, 2072884, 3411241, 98366301 ####[facility] (DEFAULT)[address] [place] [address] 95834 ALT [Catalytic activity/Vol] 30.0 U/L Normal 17.0-63.0 [facility] Comment on above: Performed By: #### 1 [id number], 7216147, 3024964, 02808379 ####[facility] (DEFAULT)[address] [place] [address] 52570 Anion gap [Moles/Vol] 13.0 mmol/L Normal 5.0-19.0 [facility] Comment on above: Performed By: #### 1 [id number], 6464091, 1818460, 85290834 ####[facility] (DEFAULT)[address] [place] [address] 98651 AST [Catalytic activity/Vol] 19 U/L Normal 15-41 [facility] Comment on above: Performed By: #### 1 [id number], 7080173, 0892167, 83407398 ####[facility] (DEFAULT)[address] [place] [address] 37155 Bili Total 0.7 mg/dL Normal 0.3-1.2 [facility] Comment on above: Performed By: #### 1 [id number], 2863636, 4395605, 45378091 ####[facility] (DEFAULT)[address] [place] [address] 26086 Calcium [Mass/Vol] 9.3 mg/dL Normal 8.9-10.3 [facility] Comment on above: Performed By: #### 1 [id number], 1167959, 1314805, 22605212 ####[facility] (DEFAULT)[address] [place] [address] 39833 Chloride [Moles/Vol] 101 mmol/L Normal 101-111 [facility] Comment on above: Performed By: #### 1 [id number], 0555123, 0949290, 13223779 ####[facility] (DEFAULT)[address] [place] [address] 22688 CO2 [Moles/Vol] 24 mmol/L Normal 21-32 [facility] Comment on above: Performed By: #### 1 [id number], 0500380, 2913144, 88645450 ####[facility] (DEFAULT)[address] [place] [address] 02922 Creatinine [Mass/Vol] 1.20 mg/dL Normal 0.90-1.30 [facility] Comment on above: Performed By: #### 1 234239452, 1219265, 0231414, 12309830 ####[facility] (DEFAULT)[address] [place] [address] 61548 Globulin (S) [Mass/Vol] 3.4 g/dL Normal 1.5-4.3 [facility] Comment on above: Performed By: #### 1 [id number], 0456096, 1362376, 40864417 ####[facility] (DEFAULT)[address] [place] [address] 72957 Glucose [Mass/Vol] 184.0 mg/dL High 74.0-118.0 [facility] Comment on above: Performed By: #### 1 602091891, 1847150, 0841355, 85479762 ####[facility] (DEFAULT)[address] [place] [address] 57794 Osmolality 286 mOsm/L Invalid Interpretation Code [facility] Comment on above: Performed By: #### 1 [id number], 0411927, 8719983, 71605283 ####[facility] (DEFAULT)[address] [place] [address] 99890 Potassium [Moles/Vol] 4.1 mmol/L Normal 3.6-5.1 [facility] Comment on above: Performed By: #### 1 [id number], 8582660, 3542559, 47482263 ####[facility] (DEFAULT)[address] [place] [address] 34628 Protein [Mass/Vol] 6.8 g/dL Normal 6.5-8.1 [facility] Comment on above: Performed By: #### 1 [id number], 1289511, 8841045, 81657940 ####[facility] (DEFAULT)[address] [place] [address] 22257 Sodium [Moles/Vol] 134.0 mmol/L Low 136.0-144.0 [facility] Comment on above: Performed By: #### 1 [id number], 4669156, 7095704, 88240500 ####[facility] (DEFAULT)[address] [place] [address] 53237 Urea nitrogen [Mass/Vol] 50 mg/dL High 05-30 [facility] Comment on above: Performed By: #### 1 164581518, 3618123, 7375038, 42742540 ####[facility] (DEFAULT)[address] [place] [address] 36299 Urea nitrogen/Creatinine [Mass ratio] 42.0 mg/mg High 4.6-16.2 [facility] Comment on above: Performed By: #### 1 [id number], 5138039, 3864811, 59723743 ####[facility] (DEFAULT)[address] [place] [address] 47351 Magnesiumon 07-15-2022 Magnesium [Mass/Vol] 1.99 mg/dL Normal 1.80-2.50 [facility] Comment on above: Performed By: #### 1 470339474, 6320423, 5081523, 28771257 ####[facility] (DEFAULT)[address] [place] [address] 96101 POCT Glucose Levelon 022 Glucose [Mass/Vol] 305 mg/dL High [address] [place] [address] Comment on above: Performed By: #### 4 [id number] ####[facility] (DEFAULT)[address] [place] [address] 07093 Glucose [Mass/Vol] 267 mg/dL High [address] Comment on above: Performed By: #### 4 [id number] ####[facility] (DEFAULT)[address] [place] [address] 93057 Glucose [Mass/Vol] 223 mg/dL High [address] [place] [address] Comment on above: Performed By: #### 4 [id number] ####[facility] (DEFAULT)[address] [place] [address] 79797 Glucose [Mass/Vol] 188 mg/dL High [address] Comment on above: Performed By: #### 4 [id number] ####[facility] (DEFAULT)[address] [place] [address] Telemetry Stripson Telemetry Strips [id number]#1.00 OTGTIFF Normal [facility] XR Swallowing Functionon XR Swallowing Function Normal [facility] Comment on above: Order Comment: modif ied swallow study .Auto Diff 1on 07-14-2022 Auto [place] % 7 % Normal -12 [facility] Comment on above: Performed By: #### 7 875351, 82537848, 1032331, [id number] ####[facility] (DEFAULT)[address] [place] [address] Baso Abs# 0.0 x10 Normal 0.0-0.2 [facility] Comment on above: Performed By: #### 7 690638, 71485534, 4448345, [id number] ####[facility] (DEFAULT)[address] [place] [address] Basophils/100 WBC (Bld) 0.2 % Normal 0.2-2.0 [facility] Comment on above: Performed By: #### 7 508860, 28509019, 1940986, [id number] ####[facility] (DEFAULT)[address] [place] [address] Eos Abs# 0.5 x10 High 0.0-0.4 [facility] Comment on above: Performed By: #### 7 297983, 43388803, 7190212, [id number] ####[facility] (DEFAULT)[address] [place] [address] 10353 Eosinophils/100 WBC (Bld) 5.3 % High 0.9-4.0 [facility] Comment on above: Performed By: #### 7 266965, 94483982, 8207894, 2464402742 ####[facility] (DEFAULT)[address] [place] [address] Lymph Abs# 3.2 x10 High 1.3-2.9 [facility] Comment on above: Performed By: #### 7 493943, 47570503, 3913529, 3910280230 ####[facility] (DEFAULT)[address] [place] [address] Lymphocytes/100 WBC (Bld) 35 % Normal 14-48 [facility] Comment on above: Performed By: #### 7 289524, 40135025, 1485332, [id number] ####[facility] (DEFAULT)[address] [place] [address] [place] Abs# 0.6 x10 Normal 0.0-0.8 [facility] Comment on above: Performed By: #### 7 374803, 89426462, 4632203, 1087637504 ####[facility] (DEFAULT)[address] [place] [address] Neut Abs# 4.8 x10 Normal 1.5-9.2 [facility] Comment on above: Performed By: #### 7 444318, 64168600, 7987879, [id number] ####[facility] (DEFAULT)[address] [place] [address] Neutrophils/100 WBC (Bld) 53 % Normal 44-88 [facility] Comment on above: Performed By: #### 7 048649, 42839316, 0413783, 1062981479 ####[facility] (DEFAULT)[address] [place] [address] Ambulance Noteon 07-14-2022 Ambulance Note [id number]#1.00 OTGTIFF Normal [facility] CBC w/ Auto Diffon Erythrocyte distribution width (RBC) [Ratio] 13.1 % Normal 11.5-15.0 [facility] Comment on above: Performed By: #### 7 875109, 46665689, 3618938, [id number] ####[facility] (DEFAULT)[address] [place] [address] Hematocrit (Bld) [Volume fraction] 35.1 % Normal 34.8-51.9 [facility] Comment on above: Performed By: #### 7 231384, [id number], [id number], [id number] ####[facility] (DEFAULT)[address] [place] [address] Hemoglobin (Bld) [Mass/Vol] 11.4 g/dL Low 11.8-17.7 [facility] Comment on above: Performed By: #### 7 337431, 65937382, 1025526, [id number] ####[facility] (DEFAULT)[address] [place] [address] Instr WBC 9.2 x10 Invalid Interpretation Code [facility] Comment on above: Performed By: #### 7 111067, 08796362, 5480138, [id number] ####[facility] (DEFAULT)[address] [place] [address] Man Diff? Auto Normal [facility] Comment on above: Performed By: #### 7 197644, 65192414, 8441907, [id number] ####[facility] (DEFAULT)[address] [place] [address] MCH (RBC) [Entitic mass] 29 pg Normal 24-34 [facility] Comment on above: Performed By: #### 7 263656, 80676442, 5363491, [id number] ####[facility] (DEFAULT)[address] [place] [address] MCHC (RBC) [Mass/Vol] 32 g/dL Normal 26-37 [facility] Comment on above: Performed By: #### 7 649249, 87409523, 6972645, [id number] ####[facility] (DEFAULT)[address] [place] [address] 18540 MCV (RBC) [Entitic vol] 90 fL Normal 81-100 [facility] Comment on above: Performed By: #### 7 284830, 20284000, 2510162, [id number] ####[facility] (DEFAULT)[address] [place] [address] 77710 Platelet 233 x10 Normal 138-427 [facility] Comment on above: Performed By: #### 7 156632, 82394440, 6307123, 6777938449 ####[facility] (DEFAULT)[address] [place] [address] Platelet mean volume (Bld) [Entitic vol] 11.8 fL High 6.3-10.2 [facility] Comment on above: Performed By: #### 7 409768, 82356748, 4487263, 0950858989 ####[facility] (DEFAULT)[address] [place] [address] RBC 3.92 x10 Normal 3.70-5.30 [facility] Comment on above: Performed By: #### 7 028561, 77581773, 2440450, [id number] ####[facility] (DEFAULT)[address] [place] [address] WBC 9.2 x10 Normal 3.5-10.5 [facility] Comment on above: Performed By: #### 7 217676, 01765371, 0401413, [id number] ####[facility] (DEFAULT)[address] [place] [address] Standardon 07-14-2022 eGFR Non AA 56 mL/min/1.73m2 Invalid Interpretation Code [facility] Comment on above: Performed By: #### 7 223312, 70021837, 2460018, [id number] ####[facility] (DEFAULT)[address] [place] [address] eGFR AA >60 Invalid Interpretation Code [facility] Comment on above: Result Comment: [employer]h Kidney disease could be indicated at eGFRs of less than 60 ml/min/1.73m2. Kidney Failure is indicated at less than 15 ml/min/1.73m2 Performed By: #### 7 016170, 17641401, 5934066, [id number] ####[facility] (DEFAULT)[address] [place] [address] Albumin [Mass/Vol] 3.4 g/dL Low 3.5-5.0 [facility] Comment on above: Performed By: #### 7 352688, 82923537, 9580875, 7240194787 ####[facility] (DEFAULT)[address] [place] [address] Albumin/Globulin [Mass ratio] 1.0 {ratio} Low 1.4-2.6 [facility] Comment on above: Performed By: #### 7 246104, 42129330, 3841614, 0747793918 ####[facility] (DEFAULT)[address] [place] [address] 16711 Alk Phos 60 IU/L Normal 32-91 [facility] Comment on above: Performed By: #### 7 407901, 28501778, 0474587, [id number] ####[facility] (DEFAULT)[address] [place] [address] 38011 ALT [Catalytic activity/Vol] 23.0 U/L Normal 17.0-63.0 [facility] Comment on above: Performed By: #### 7 676184, 17734263, 9666427, [id number] ####[facility] (DEFAULT)[address] [place] [address] 54745 Anion gap [Moles/Vol] 15.0 mmol/L Normal 5.0-19.0 [facility] Comment on above: Performed By: #### 7 165135, 47499993, 6670390, [id number] ####[facility] (DEFAULT)[address] [place] [address] 24587 AST [Catalytic activity/Vol] 17 U/L Normal 15-41 [facility] Comment on above: Performed By: #### 7 745757, 53125219, 9545447, 5853144497 ####[facility] (DEFAULT)[address] [place] [address] 24731 Bili Total 0.6 mg/dL Normal 0.3-1.2 [facility] Comment on above: Performed By: #### 7 965339, 08037027, 1862533, [id number] ####[facility] (DEFAULT)[address] [place] [address] 71827 Calcium [Mass/Vol] 9.1 mg/dL Normal 8.9-10.3 [facility] Comment on above: Performed By: #### 7 388553, 00206369, 1372367, [id number] ####[facility] (DEFAULT)[address] [place] [address] 28081 Chloride [Moles/Vol] 101 mmol/L Normal 101-111 [facility] Comment on above: Performed By: #### 7 375146, 57953098, 1985861, [id number] ####[facility] (DEFAULT)[address] [place] [address] CO2 [Moles/Vol] 23 mmol/L Normal 21-32 [facility] Comment on above: Performed By: #### 7 511053, 50983351, 0801473, 0475904442 ####[facility] (DEFAULT)[address] [place] [address] Creatinine [Mass/Vol] 1.28 mg/dL Normal 0.90-1.30 [facility] Comment on above: Performed By: #### 7 980871, 55534014, 1743299, 4791385043 ####[facility] (DEFAULT)[address] [place] [address] Globulin (S) [Mass/Vol] 3.5 g/dL Normal 1.5-4.3 [facility] Comment on above: Performed By: #### 7 385828, 71915284, 5488328, 3528652245 ####[facility] (DEFAULT)[address] [place] [address] Glucose [Mass/Vol] 183.0 mg/dL High 74.0-118.0 [facility] Comment on above: Performed By: #### 7 872323, 07759525, 8801692, 9596791349 ####[facility] (DEFAULT)[address] [place] [address] Osmolality 288 mOsm/L Invalid Interpretation Code [facility] Comment on above: Performed By: #### 7 175308, 44195726, 5133345, 3630656876 ####[facility] (DEFAULT)[address] [place] [address] 42521 Potassium [Moles/Vol] 4.1 mmol/L Normal 3.6-5.1 [facility] Comment on above: Performed By: #### 7 269611, 11762187, 9189923, 9913367223 ####[facility] (DEFAULT)[address] [place] [address] Protein [Mass/Vol] 6.9 g/dL Normal 6.5-8.1 [facility] Comment on above: Performed By: #### 7 743200, 03995831, 1591057, 1898936447 ####[facility] (DEFAULT)[address] [place] [address] Sodium [Moles/Vol] 135.0 mmol/L Low 136.0-144.0 [facility] Comment on above: Performed By: #### 7 492594, 82743040, 1381272, 0808641088 ####[facility] (DEFAULT)[address] [place] [address] Urea nitrogen [Mass/Vol] 50 mg/dL High 8-26 [facility] Comment on above: Performed By: #### 7 936105, 02859475, 8683290, [id number] ####[facility] (DEFAULT)[address] [place] [address] Urea nitrogen/Creatinine [Mass ratio] 39.0 mg/mg High 4.6-16.2 [facility] Comment on above: Performed By: #### 7 853686, 00552498, 4785077, [id number] ####[facility] (DEFAULT)[address] [place] [address] Consent Formson 07-14-2022 Consent Forms [id number]#1.0 0OTGTIFF Normal [facility] Magnesiumon 07-14-2022 Magnesium [Mass/Vol] 2.00 mg/dL Normal 1.80-2.50 [facility] Comment on above: Performed By: #### 7 865859, 21353702, 5208662, [id number] ####[facility] (DEFAULT)[address] [place] [address] 63041 Nutrition Noteon 07-14-2022 Nutrition Note Normal [facility] POCT Glucose Levelon 022 Glucose [Mass/Vol] 164 mg/dL High 74-118 [facility] Comment on above: Performed By: #### 4 [id number] ####[facility] (DEFAULT)[address] [place] [address] Glucose [Mass/Vol] 270 mg/dL High 74118 [facility] Comment on above: Performed By: #### 4 [id number] ####[facility] (DEFAULT)[address] [place] [address] 82038 Glucose [Mass/Vol] 242 mg/dL High 74118 [facility] Comment on above: Performed By: #### 4 [id number] ####[facility] (DEFAULT)[address] [place] [address] 85414 Glucose [Mass/Vol] 165 mg/dL High [address] [place] [address] Comment on above: Performed By: #### 4 [id number] ####[facility] (DEFAULT)[address] [place] [address] 56440 Rad - MRI Reporton 2 Rad - MRI Report [id number]#1.0 [facility] 2 Telemetry Strips [id number]#1.00 [facility] Echocardiogram Completeon 07-14-2022 US Echocardiogram Complete Normal [facility] .Auto Diff 1on 07-13-2022 Auto [place] % 8 % Normal -12 [facility] Comment on above: Performed By: #### 7 365666, 1924856, 2836559159, 9077935404, 00894859 ####[facility] (DEFAULT)[address] [place] [address] 39258 Baso Abs# 0.0 x10 Normal 0.0-0.2 [facility] Comment on above: Performed By: #### 7 993873, 9283658, 9790777140, 3743900454, 80647642 ####[facility] (DEFAULT)[address] [place] [address] 28345 Basophils/100 WBC (Bld) 0.4 % Normal 0.2-2.0 [facility] Comment on above: Performed By: #### 7 662936, 2070710, 5732963405, 2446996335, 21342025 ####[facility] (DEFAULT)[address] [place] [address] 82268 Eos Abs# 0.6 x10 High 0.0-0.4 [facility] Comment on above: Performed By: #### 7 370443, 0278889, 2815072258, 0207194484, 37458458 ####[facility] (DEFAULT)[address] [place] [address] 81393 Eosinophils/100 WBC (Bld) 5.4 % High 0.9-4.0 [facility] Comment on above: Performed By: #### 7 092575, 7887027, 5604729512, 7330846372, 12029790 ####[facility] (DEFAULT)[address] [place] [address] 70978 Lymph Abs# 2.6 x10 Normal 1.3-2.9 [facility] Comment on above: Performed By: #### 7 755043, 9523679, 1755550041, 2253077307, 90290594 ####[facility] (DEFAULT)[address] [place] [address] 64292 Lymphocytes/100 WBC (Bld) 24 % Normal 14-48 [facility] Comment on above: Performed By: #### 7 309505, 5363624, 0588622237, 5924084826, 37790899 ####[facility] (DEFAULT)[address] [place] [address] 83899 [place] Abs# 0.9 x10 High 0.0-0.8 [facility] Comment on above: Performed By: #### 7 364981, 3244061, 7821994314, 1019221270, 98023149 ####[facility] (DEFAULT)[address] [place] [address] 05833 Neut Abs# 6.7 x10 Normal 1.5-9.2 [facility] Comment on above: Performed By: #### 7 049028, 8233716, 2868292927, 2214860436, 34443185 ####[facility] (DEFAULT)[address] [place] [address] Neutrophils/100 WBC (Bld) 62 % Normal 44-88 [facility] Comment on above: Performed By: #### 7 638747, 5647903, 3749964127, 6278623172, 25627816 ####[facility] (DEFAULT)[address] [place] [address] BMP Standardon 07-13-2022 eGFR Non AA 60 mL/min/1.73m2 Invalid Interpretation Code [facility] Comment on above: Performed By: #### 7 542241, 1701943, 6001828774, 1106290739, 45924691 ####[facility] (DEFAULT)[address] [place] [address] eGFR AA >60 Invalid Interpretation Code [facility] Comment on above: Result Comment: [employer] Kidney disease could be indicated at eGFRs of less than 60 ml/min/1.73m2. Kidney Failure is indicated at less than 15 ml/min/1.73m2 Performed By: #### 7 547679, 4338989, 2315747945, 1571460521, 35620097 ####[facility] (DEFAULT)[address] [place] [address] 55557 Anion gap [Moles/Vol] 14.0 mmol/L Normal 5.0-19.0 [facility] Comment on above: Performed By: #### 7 173593, 0847105, 3699624786, 9386325837, 03232888 ####[facility] (DEFAULT)[address] [place] [address] 28788 Calcium [Mass/Vol] 9.3 mg/dL Normal 8.9-10.3 [facility] Comment on above: Performed By: #### 7 025809, 4485011, 9237121860, 5731509388, 60192689 ####[facility] (DEFAULT)[address] [place] [address] 53595 Chloride [Moles/Vol] 103 mmol/L Normal 101-111 [facility] Comment on above: Performed By: #### 7 730076, 0515440, 9580540125, 4578983721, 55742691 ####[facility] (DEFAULT)[address] [place] [address] CO2 [Moles/Vol] 24 mmol/L Normal 21-32 [facility] Comment on above: Performed By: #### 7 520992, 4937107, 9822864346, 4270553571, 64583852 ####[facility] (DEFAULT)[address] [place] [address] 65220 Creatinine [Mass/Vol] 1.21 mg/dL Normal 0.90-1.30 [facility] Comment on above: Performed By: #### 7 667242, 6715534, 1679362914, 4309024262, 81070384 ####[facility] (DEFAULT)[address] [place] [address] 72039 Glucose [Mass/Vol] 194.0 mg/dL High 74.0-118.0 [facility] Comment on above: Performed By: #### 7 097241, 8548817, 6392702784, 0091685704, 68365001 ####[facility] (DEFAULT)[address] [place] [address] 80278 Osmolality 289 mOsm/L Invalid Interpretation Code [facility] Comment on above: Performed By: #### 7 543499, 7794355, 3587419948, 9916518979, 74393962 ####[facility] (DEFAULT)[address] [place] [address] 45164 Potassium [Moles/Vol] 4.4 mmol/L Normal 3.6-5.1 [facility] Comment on above: Performed By: #### 7 785387, 6184454, 7835459395, 1716164262, 27447098 ####[facility] (DEFAULT)[address] [place] [address] 54481 Sodium [Moles/Vol] 137.0 mmol/L Normal 136.0-144.0 [facility] Comment on above: Performed By: #### 7 001698, 9639209, 6600755370, 9640295439, 89900510 ####[facility] (DEFAULT)[address] [place] [address] 81586 Urea nitrogen [Mass/Vol] 41 mg/dL High 8-26 [facility] Comment on above: Performed By: #### 7 900623, 4337032, 0186349022, 8801501469, 78278050 ####[facility] (DEFAULT)[address] [place] [address] Urea nitrogen/Creatinine [Mass ratio] 34.0 mg/mg High 4.6-16.2 [facility] Comment on above: Performed By: #### 7 055860, 0952798, 4704045797, 6995091281, 49223749 ####[facility] (DEFAULT)[address] [place] [address] CBC w/ Auto Diffon 2 Erythrocyte distribution width (RBC) [Ratio] 13.2 % Normal 11.5-15.0 [facility] Comment on above: Performed By: #### 7 443914, 8004387, 1705141060, 4983638361, 41306267 ####[facility] (DEFAULT)[address] [place] [address] Hematocrit (Bld) [Volume fraction] 36.7 % Normal 34.8-51.9 [facility] Comment on above: Performed By: #### 7 639671, 1398367, 1216881086, 4835440017, 76948048 ####[facility] (DEFAULT)[address] [place] [address] Hemoglobin (Bld) [Mass/Vol] 12.0 g/dL Normal 11.8-17.7 [facility] Comment on above: Performed By: #### 7 509618, 3885927, 1946051093, 8129740117, 32276267 ####[facility] (DEFAULT)[address] [place] [address] Instr WBC 10.8 x10 Invalid Interpretation Code [facility] Comment on above: Performed By: #### 7 065476, 2590382, 1598538869, 5151479388, 47187569 ####[facility] (DEFAULT)[address] [place] [address] Man Diff? Auto Normal [facility] Comment on above: Performed By: #### 7 944866, 9137395, 4795126526, 4334436901, 01058115 ####[facility] (DEFAULT)[address] [place] [address] 83661 MCH (RBC) [Entitic mass] 29 pg Normal 24-34 [facility] Comment on above: Performed By: #### 7 742263, 1772875, 5287671883, 3532991763, 61697053 ####[facility] (DEFAULT)[address] [place] [address] MCHC (RBC) [Mass/Vol] 33 g/dL Normal 26-37 [facility] Comment on above: Performed By: #### 7 298992, 2907026, 4889477504, 9460056871, 17049537 ####[facility] (DEFAULT)[address] [place] [address] MCV (RBC) [Entitic vol] 90 fL Normal 81-100 [facility] Comment on above: Performed By: #### 7 231872, 8465031, 8042067731, 4546294701, 98350437 ####[facility] (DEFAULT)[address] [place] [address] Platelet 258 x10 Normal 138-427 [facility] Comment on above: Performed By: #### 7 403043, 5812921, 4885894492, 1882178857, 78721200 ####[facility] (DEFAULT)[address] [place] [address] Platelet mean volume (Bld) [Entitic vol] 12.0 fL High 6.3-10.2 [facility] Comment on above: Performed By: #### 7 602629, 7144989, 4757557226, 5311771862, 23582457 ####[facility] (DEFAULT)[address] [place] [address] RBC 4.09 x10 Normal 3.70-5.30 [facility] Comment on above: Performed By: #### 7 237996, 8260293, 0079704838, 5414262955, 02037779 ####[facility] (DEFAULT)[address] [place] [address] WBC 10.8 x10 High 3.5-10.5 [facility] Comment on above: Performed By: #### 7 511338, 4382269, 9119063513, 3846402727, 40404406 ####[facility] (DEFAULT)[address] [place] [address] 14908 CMP Standardon 07-13-2022 Albumin [Mass/Vol] 3.5 g/dL Normal 3.5-5.0 [facility] Comment on above: Performed By: #### 7 217206, 4264610, 8894185834, 8220603748, 23171953 ####[facility] (DEFAULT)[address] [place] [address] Albumin/Globulin [Mass ratio] 1.0 {ratio} Low 1.4-2.6 [facility] Comment on above: Performed By: #### 7 726615, 6716147, 7338588343, 4324671945, 56114165 ####[facility] (DEFAULT)[address] [place] [address] 71487 Alk Phos 61 IU/L Normal 32-91 [facility] Comment on above: Performed By: #### 7 967709, 1421349, 6944268175, 7785313007, 44927440 ####[facility] (DEFAULT)[address] [place] [address] 13719 ALT [Catalytic activity/Vol] 20.0 U/L Normal 17.0-63.0 [facility] Comment on above: Performed By: #### 7 996112, 7205934, 5187679739, 5232117913, 72494361 ####[facility] (DEFAULT)[address] [place] [address] 33408 AST [Catalytic activity/Vol] 18 U/L Normal 15-41 [facility] Comment on above: Performed By: #### 7 840193, 6174638, 5609644445, 1072708083, 34090300 ####[facility] (DEFAULT)[address] [place] [address] Bili Total 0.7 mg/dL Normal 0.3-1.2 [facility] Comment on above: Performed By: #### 7 209029, 3970508, 6149390615, 9884548010, 16400699 ####[facility] (DEFAULT)[address] [place] [address] 16934 Globulin (S) [Mass/Vol] 3.5 g/dL Normal 1.5-4.3 [facility] Comment on above: Performed By: #### 7 396947, 1666431, 1083994198, 8942936800, 04368787 ####[facility] (DEFAULT)[address] [place] [address] 77385 Protein [Mass/Vol] 7.0 g/dL Normal 6.5-8.1 [facility] Comment on above: Performed By: #### 7 335869, 2754234, 4738227482, 1557436472, 69149069 ####[facility] (DEFAULT)[address] [place] [address] Upper Extremity w/o Contr ast Lefton 07-13-2022 CT Upper Extremity w/o Contrast Left Normal [facility] Magnesiumon 07-13-2022 Magnesium [Mass/Vol] 1.90 mg/dL Normal 1.80-2.50 [facility] Comment on above: Performed By: #### 7 829818, 7816736, 4607663601, 7228760751, 35493329 ####[facility] (DEFAULT)[address] [place] [address] 29800 POCT Glucose Levelon 022 Glucose [Mass/Vol] 175 mg/dL High [address] [place] [address] Comment on above: Performed By: #### 4 [id number] ####[facility] (DEFAULT)[address] [place] [address] 72749 Glucose [Mass/Vol] 271 mg/dL High [address] [place] [address] Comment on above: Performed By: #### 4 [id number] ####[facility] (DEFAULT)[address] [place] [address] 59829 Glucose [Mass/Vol] 179 mg/dL High [address] [place] [address] Comment on above: Performed By: #### 4 [id number] ####[facility] (DEFAULT)[address] [place] [address] 80105 Progress Note - Nurseon Progress Note - Nurse Normal [facility] Standardon 07-12-2022 eGFR Non AA >60 Invalid Interpretation Code [facility] Comment on above: Performed By: #### 1 [id number], [id number] ####[facility] (DEFAULT)[address] [place] [address] 94971 eGFR AA >60 Invalid Interpretation Code [facility] Comment on above: Result Comment: Station Helper lokesh Kidney disease could be indicated at eGFRs of less than 60 ml/min/1.73m2. Kidney Failure is indicated at less than 15 ml/min/1.73m2 Performed By: #### 1 [id number], [id number] ####[facility] (DEFAULT)[address] [place] [address] 07940 Anion gap [Moles/Vol] 13.0 mmol/L Normal 5.0-19.0 [facility] Comment on above: Performed By: #### 1 105179933, [id number] ####[facility] (DEFAULT)[address] [place] [address] 63082 Calcium [Mass/Vol] 9.2 mg/dL Normal 8.9-10.3 [facility] Comment on above: Performed By: #### 1 343247888, 9740437799 ####[facility] (DEFAULT)[address] [place] [address] 21487 Chloride [Moles/Vol] 103 mmol/L Normal 101-111 [facility] Comment on above: Performed By: #### 1 388474522, [id number] ####[facility] (DEFAULT)[address] [place] [address] 10048 CO2 [Moles/Vol] 24 mmol/L Normal 21-32 [facility] Comment on above: Performed By: #### 1 [id number], [id number] ####[facility] (DEFAULT)[address] [place] [address] 50473 Creatinine [Mass/Vol] 1.17 mg/dL Normal 0.90-1.30 [facility] Comment on above: Performed By: #### 1 292821385, 2959717225 ####[facility] (DEFAULT)[address] [place] [address] 80773 Glucose [Mass/Vol] 181.0 mg/dL High 74.0-118.0 [facility] Comment on above: Performed By: #### 1 075954095, 5108676415 ####[facility] (DEFAULT)[address] [place] [address] 06863 Osmolality 287 mOsm/L Invalid Interpretation Code [facility] Comment on above: Performed By: #### 1 [id number], [id number] ####[facility] (DEFAULT)[address] [place] [address] 15985 Potassium [Moles/Vol] 4.8 mmol/L Normal 3.6-5.1 [facility] Comment on above: Performed By: #### 1 897857988, 6664784179 ####[facility] (DEFAULT)[address] [place] [address] 63656 Sodium [Moles/Vol] 135.0 mmol/L Low 136.0-144.0 [facility] Comment on above: Performed By: #### 1 [id number], [id number] ####[facility] (DEFAULT)[address] [place] [address] 86577 Urea nitrogen [Mass/Vol] 47 mg/dL High 8-26 [facility] Comment on above: Performed By: #### 1 805978469, [id number] ####[facility] (DEFAULT)[address] [place] [address] 52571 Urea nitrogen/Creatinine [Mass ratio] 40.0 mg/mg High 4.6-16.2 [facility] Comment on above: Performed By: #### 1 [id number], [id number] ####[facility] (DEFAULT)[address] [place] [id number] Angiography Head/Neck w/ Contraston 07-12-2022 CT Angiography Head/Neck w/ Contrast Normal [facility] [place] 07-12-2022 Tube Collected Yes Invalid Interpretation Code [facility] Comment on above: Performed By: #### 1 [id number] ####[facility] (DEFAULT)[address] [place] [id number] POCT Glucose Levelon 022 Glucose [Mass/Vol] 290 mg/dL High [address] [place] [address] Comment on above: Performed By: #### 4 [id number] ####[facility] (DEFAULT)[address] [place] [address] 85576 Glucose [Mass/Vol] 243 mg/dL High [address] [place] [address] Comment on above: Performed By: #### 4 [id number] ####[facility] (DEFAULT)[address] [place] [address] 97998 Glucose [Mass/Vol] 148 mg/dL High [address] [place] [address] Comment on above: Performed By: #### 4 [id number] ####[facility] (DEFAULT)[address] [place] [address] 56276 Glucose [Mass/Vol] 163 mg/dL High [address] [place] [address] Comment on above: Performed By: #### 4 [id number] ####[facility] (DEFAULT)[address] [place] [address] 99017 Progress Note - Nurseon 10-0 Progress Note - Nurse Normal [facility] .Auto Diff 1on 07-11-2022 Auto [place] % 8 % Normal -12 [facility] Comment on above: Performed By: #### 7 280474, 07432661, [id number], 4063574, 1007017527, [id number] ####[facility] (DEFAULT)[address] [place] [address] 76263 Baso Abs# 0.0 x10 Normal 0.0-0.2 [facility] Comment on above: Performed By: #### 7 694923, 23543694, 5210687779, 5206703, 3077793477, [id number] ####[facility] (DEFAULT)[address] [place] [address] 68792 Basophils/100 WBC (Bld) 0.2 % Normal 0.2-2.0 [facility] Comment on above: Performed By: #### 7 279140, 83922898, [id number], 0726376, , ####[facility] (DEFAULT)[address] [place] [address] Eos Abs# 0.4 x10 Normal 0.0-0.4 [facility] Comment on above: Performed By: #### 7 889124, 53009911, 5572424098, 2866041, , ####[facility] (DEFAULT)[address] [place] [address] 11544 Eosinophils/100 WBC (Bld) 4.7 % High 0.9-4.0 [facility] Comment on above: Performed By: #### 7 487650, 29558677, 8934956469, 2741255, , ####[facility] (DEFAULT)[address] [place] [address] 34230 Lymph Abs# 2.5 x10 Normal 1.3-2.9 [facility] Comment on above: Performed By: #### 7 201322, 16849846, 8755569102, 8763242, , ####[facility] (DEFAULT)[address] [place] [address] 45904 Lymphocytes/100 WBC (Bld) 30 % Normal 14-48 [facility] Comment on above: Performed By: #### 7 994122, 03423304, 1144422715, 6276441, , ####[facility] (DEFAULT)[address] [place] [address] 43086 [place] Abs# 0.7 x10 Normal 0.0-0.8 [facility] Comment on above: Performed By: #### 7 702916, 02263961, [id number], 3470802, , ####[facility] (DEFAULT)[address] [place] [address] 21947 Neut Abs# 4.7 x10 Normal 1.5-9.2 [facility] Comment on above: Performed By: #### 7 083998, 49214962, 4386380148, 7680177, 4536480668, 6359916763 ####[facility] (DEFAULT)[address] [place] [address] Neutrophils/100 WBC (Bld) 57 % Normal 44-88 [facility] Comment on above: Performed By: #### 7 567225, 64511608, 4392518436, 7638279, 8303423272, 8733577487 ####[facility] (DEFAULT)[address] [place] [address] Auto [place] % 7 % Normal 1-12 [facility] Comment on above: Performed By: #### 1 3120815, 4208669, 9135751, [id number] ####[facility] (DEFAULT)[address] [place] [address] Baso Abs# 0.0 x10 Normal 0.0-0.2 [facility] Comment on above: Performed By: #### 1 1656819, 8246904, 9209333, 0183122335 ####[facility] (DEFAULT)[address] [place] [address] Basophils/100 WBC (Bld) 0.2 % Normal 0.2-2.0 [facility] Comment on above: Performed By: #### 1 1909081, 0277075, 8126835, 4881240688 ####[facility] (DEFAULT)[address] [place] [address] 65302 Eos Abs# 0.4 x10 Normal 0.0-0.4 [facility] Comment on above: Performed By: #### 1 9908392, 8502847, 1616792, 3499945050 ####[facility] (DEFAULT)[address] [place] [address] Eosinophils/100 WBC (Bld) 4.2 % High 0.9-4.0 [facility] Comment on above: Performed By: #### 1 4730799, 9697361, 9790326, 8002138947 ####[facility] (DEFAULT)[address] [place] [address] 66014 Lymph Abs# 2.5 x10 Normal 1.3-2.9 [facility] Comment on above: Performed By: #### 1 6669967, 7112511, 7518964, 3765621689 ####[facility] (DEFAULT)[address] [place] [address] 20688 Lymphocytes/100 WBC (Bld) 30 % Normal 14-48 [facility] Comment on above: Performed By: #### 1 5367969, 7292231, 5512009, [id number] ####[facility] (DEFAULT)[address] [place] [address] [place] Abs# 0.6 x10 Normal 0.0-0.8 [facility] Comment on above: Performed By: #### 1 4871446, 2669853, 9821248, 2366697311 ####[facility] (DEFAULT)[address] [place] [address] Neut Abs# 5.0 x10 Normal 1.5-9.2 [facility] Comment on above: Performed By: #### 1 8984511, 6472283, 8354296, 6663426095 ####[facility] (DEFAULT)[address] [place] [address] 07406 Neutrophils/100 WBC (Bld) 59 % Normal 44-88 [facility] Comment on above: Performed By: #### 1 2889372, 9359005, 1970713, 5594232112 ####[facility] (DEFAULT)[address] [place] [address] 57617 BMP Standardon 07-11-2022 eGFR Non AA 58 mL/min/1.73m2 Invalid Interpretation Code [facility] Comment on above: Performed By: #### 7 271808, 38367534, 6966630595, 0433101, 8965604568, 4017234745 ####[facility] (DEFAULT)[address] [place] [address] eGFR AA >60 Invalid Interpretation Code [facility] Comment on above: Result Comment: [employer] lokesh Kidney disease could be indicated at eGFRs of less than 60 ml/min/1.73m2. Kidney Failure is indicated at less than 15 ml/min/1.73m2 Performed By: #### 7 621006, 77135090, 7162954537, 2959487, , [id number] ####[facility] (DEFAULT)[address] [place] [address] 42191 Anion gap [Moles/Vol] 16.0 mmol/L Normal 5.0-19.0 [facility] Comment on above: Performed By: #### 7 184141, 96766032, 6456166048, 3309962, , ####[facility] (DEFAULT)[address] [place] [address] 12302 Calcium [Mass/Vol] 9.5 mg/dL Normal 8.9-10.3 [facility] Comment on above: Performed By: #### 7 436931, 96893054, 1676878378, 5728590, , ####[facility] (DEFAULT)[address] [place] [address] 74547 Chloride [Moles/Vol] 105 mmol/L Normal 101-111 [facility] Comment on above: Performed By: #### 7 993844, 81180575, 5484714682, 2340577, , ####[facility] (DEFAULT)[address] [place] [address] 24320 CO2 [Moles/Vol] 24 mmol/L Normal 21-32 [facility] Comment on above: Performed By: #### 7 184647, 61623487, 8965247641, 0658146, , ####[facility] (DEFAULT)[address] [place] [address] 58547 Creatinine [Mass/Vol] 1.24 mg/dL Normal 0.90-1.30 [facility] Comment on above: Performed By: #### 7 850357, 30000454, 9605736296, 6476610, , ####[facility] (DEFAULT)[address] [place] [address] 61418 Glucose [Mass/Vol] 187.0 mg/dL High 74.0-118.0 [facility] Comment on above: Performed By: #### 7 921309, 67804330, 7771774780, 8649588, 5795545064, ####[facility] (DEFAULT)[address] [place] [address] 61663 Osmolality 298 mOsm/L Invalid Interpretation Code [facility] Comment on above: Performed By: #### 7 440935, 45557370, 3088196628, 3875909, , ####[facility] (DEFAULT)[address] [place] [address] 28336 Potassium [Moles/Vol] 5.5 mmol/L High 3.6-5.1 [facility] Comment on above: Performed By: #### 7 665599, 97020678, 7516029584, 7807962, , ####[facility] (DEFAULT)[address] [place] [address] 17044 Sodium [Moles/Vol] 139.0 mmol/L Normal 136.0-144.0 [facility] Comment on above: Performed By: #### 7 079868, 28564578, 9154114238, 4167398, 4932859672, ####[facility] (DEFAULT)[address] [place] [address] 12650 Urea nitrogen [Mass/Vol] 55 mg/dL High 8-26 [facility] Comment on above: Performed By: #### 7 562488, 00252571, 0217408642, 6447565, 3618284859, ####[facility] (DEFAULT)[address] [place] [address] 06150 Urea nitrogen/Creatinine [Mass ratio] 44.0 mg/mg High 4.6-16.2 [facility] Comment on above: Performed By: #### 7 422214, 50094635, 1164281702, 3855481, , ####[facility] (DEFAULT)[address] [place] [address] 71682 eGFR Non AA 57 mL/min/1.73m2 Invalid Interpretation Code [facility] Comment on above: Performed By: #### 1 0280390, 0034143, 8165657, 6923260277 ####[facility] (DEFAULT)[address] [place] [address] 49517 eGFR AA >60 Invalid Interpretation Code [facility] Comment on above: Result Comment: [employer] lokesh Kidney disease could be indicated at eGFRs of less than 60 ml/min/1.73m2. Kidney Failure is indicated at less than 15 ml/min/1.73m2 Performed By: #### 1 8163453, 4946420, 1685259, 8722097226 ####[facility] (DEFAULT)[address] [place] [address] 60296 Anion gap [Moles/Vol] 15.0 mmol/L Normal 5.0-19.0 [facility] Comment on above: Performed By: #### 1 6572223, 1572042, 1658922, 5690931703 ####[facility] (DEFAULT)[address] [place] [address] 12808 Calcium [Mass/Vol] 9.6 mg/dL Normal 8.9-10.3 [facility] Comment on above: Performed By: #### 1 5268796, 5023057, 1944926, 2067712071 ####[facility] (DEFAULT)[address] [place] [address] 05639 Chloride [Moles/Vol] 106 mmol/L Normal 101-111 [facility] Comment on above: Performed By: #### 1 2769341, 9522270, 7504115, 7799513011 ####[facility] (DEFAULT)[address] [place] [address] 09119 CO2 [Moles/Vol] 22 mmol/L Normal 21-32 [facility] Comment on above: Performed By: #### 1 5312376, 5407521, 3346053, 1079788684 ####[facility] (DEFAULT)[address] [place] [address] 68870 Creatinine [Mass/Vol] 1.25 mg/dL Normal 0.90-1.30 [facility] Comment on above: Performed By: #### 1 2912846, 0392563, 9993992, 1114636587 ####[facility] (DEFAULT)[address] [place] [address] 88041 Glucose [Mass/Vol] 178.0 mg/dL High 74.0-118.0 [facility] Comment on above: Performed By: #### 1 1654725, 1514546, 4876012, 7997987248 ####[facility] (DEFAULT)[address] [place] [address] 99320 Osmolality 296 mOsm/L Invalid Interpretation Code [facility] Comment on above: Performed By: #### 1 5184501, 8157133, 4943383, 9730550084 ####[facility] (DEFAULT)[address] [place] [address] 71696 Potassium [Moles/Vol] 5.2 mmol/L High 3.6-5.1 [facility] Comment on above: Performed By: #### 1 0906266, 4289030, 2100499, 1754243048 ####[facility] (DEFAULT)[address] [place] [address] 68173 Sodium [Moles/Vol] 138.0 mmol/L Normal 136.0-144.0 [facility] Comment on above: Performed By: #### 1 5723042, 9276000, 8377917, 2405383463 ####[facility] (DEFAULT)[address] [place] [address] 25977 Urea nitrogen [Mass/Vol] 56 mg/dL High 8-26 [facility] Comment on above: Performed By: #### 1 0796109, 0064349, 6347699, 8432871497 ####[facility] (DEFAULT)[address] [place] [address] 28629 Urea nitrogen/Creatinine [Mass ratio] 45.0 mg/mg High 4.6-16.2 [facility] Comment on above: Performed By: #### 1 6657743, 8611864, 8235596, 0642044385 ####[facility] (DEFAULT)[address] [place] [address] 52110 C Urineon 07-11-2022 C Urine Normal [facility] Comment on above: Performed By: #### 5 2255927, 6859429, 5122288079 ####[facility] (DEFAULT)[address] [place] [address] 77764 CBC w/ Auto Diffon Erythrocyte distribution width (RBC) [Ratio] 13.5 % Normal 11.5-15.0 [facility] Comment on above: Performed By: #### 7 169982, 36024270, 9744808212, 7230663, 7678617056, 3705868227 ####[facility] (DEFAULT)[address] [place] [address] Hematocrit (Bld) [Volume fraction] 38.4 % Normal 34.8-51.9 [facility] Comment on above: Performed By: #### 7 929331, 19032931, 1113566720, 0394282, 9498737807, 3461814693 ####[facility] (DEFAULT)[address] [place] [address] Hemoglobin (Bld) [Mass/Vol] 12.4 g/dL Normal 11.8-17.7 [facility] Comment on above: Performed By: #### 7 517354, 60060570, 6350968550, 7289975, 7126828567, 6382270907 ####[facility] (DEFAULT)[address] [place] [address] 44954 Instr WBC 8.3 x10 Invalid Interpretation Code [facility] Comment on above: Performed By: #### 7 655983, 26864072, 0897633838, 8033452, 6266163163, 2836545587 ####[facility] (DEFAULT)[address] [place] [address] 22891 Man Diff? Auto Normal [facility] Comment on above: Performed By: #### 7 075980, 55179910, 8762096922, 3058718, 6921904004, 4359312075 ####[facility] (DEFAULT)[address] [place] [address] 35874 MCH (RBC) [Entitic mass] 29 pg Normal 24-34 [facility] Comment on above: Performed By: #### 7 695597, 30108797, 4168004807, 3045593, , ####[facility] (DEFAULT)[address] [place] [address] 73175 MCHC (RBC) [Mass/Vol] 32 g/dL Normal 26-37 [facility] Comment on above: Performed By: #### 7 294416, 10407242, 3046235807, 0329777, , ####[facility] (DEFAULT)[address] [place] [address] 22194 MCV (RBC) [Entitic vol] 90 fL Normal 81-100 [facility] Comment on above: Performed By: #### 7 748376, 12440600, 7375951411, 6195733, , ####[facility] (DEFAULT)[address] [place] [address] 72424 Platelet 247 x10 Normal 138-427 [facility] Comment on above: Performed By: #### 7 694047, 90111958, 1529488282, 0664237, , ####[facility] (DEFAULT)[address] [place] [address] 46970 Platelet mean volume (Bld) [Entitic vol] 11.6 fL High 6.3-10.2 [facility] Comment on above: Performed By: #### 7 931376, 78135049, 0970573230, 3430275, , ####[facility] (DEFAULT)[address] [place] [address] 44260 RBC 4.25 x10 Normal 3.70-5.30 [facility] Comment on above: Performed By: #### 7 633209, 24437356, 2306758914, 0133216, , ####[facility] (DEFAULT)[address] [place] [address] 30204 WBC 8.3 x10 Normal 3.5-10.5 [facility] Comment on above: Performed By: #### 7 183123, 43735966, 3050982044, 8960098, 2376948184, 1714954570 ####[facility] (DEFAULT)[address] [place] [address] Erythrocyte distribution width (RBC) [Ratio] 13.5 % Normal 11.5-15.0 [facility] Comment on above: Performed By: #### 1 3717562, 0222627, 7224946, 1060665017 ####[facility] (DEFAULT)[address] [place] [address] Hematocrit (Bld) [Volume fraction] 36.4 % Normal 34.8-51.9 [facility] Comment on above: Performed By: #### 1 9155184, 6800011, 9353524, 4403432023 ####[facility] (DEFAULT)[address] [place] [address] Hemoglobin (Bld) [Mass/Vol] 11.8 g/dL Normal 11.8-17.7 [facility] Comment on above: Performed By: #### 1 4385536, 0717721, 0940814, 6760863915 ####[facility] (DEFAULT)[address] [place] [address] Instr WBC 8.5 x10 Invalid Interpretation Code [facility] Comment on above: Performed By: #### 1 1666063, 1641335, 2776256, 2691369483 ####[facility] (DEFAULT)[address] [place] [address] Man Diff? Auto Normal [facility] Comment on above: Performed By: #### 1 7705221, 5664052, 8377483, 9407762622 ####[facility] (DEFAULT)[address] [place] [address] 60572 MCH (RBC) [Entitic mass] 29 pg Normal 24-34 [facility] Comment on above: Performed By: #### 1 3271466, 9238385, 0874369, 8569005273 ####[facility] (DEFAULT)[address] [place] [address] 88038 MCHC (RBC) [Mass/Vol] 32 g/dL Normal 26-37 [facility] Comment on above: Performed By: #### 1 0813873, 0598493, 3672586, 0871318911 ####[facility] (DEFAULT)[address] [place] [address] 33451 MCV (RBC) [Entitic vol] 90 fL Normal 81-100 [facility] Comment on above: Performed By: #### 1 0262655, 2749669, 0811441, 0256378807 ####[facility] (DEFAULT)[address] [place] [address] 90719 Platelet 243 x10 Normal 138-427 [facility] Comment on above: Performed By: #### 1 6758104, 3082685, 7080759, 4542433473 ####[facility] (DEFAULT)[address] [place] [address] 64071 Platelet mean volume (Bld) [Entitic vol] 11.7 fL High 6.3-10.2 [facility] Comment on above: Performed By: #### 1 1768971, 4106524, 5674371, 2607774618 ####[facility] (DEFAULT)[address] [place] [address] RBC 4.04 x10 Normal 3.70-5.30 [facility] Comment on above: Performed By: #### 1 5615450, 2793100, 5888787, 8423981600 ####[facility] (DEFAULT)[address] [place] [address] 57141 WBC 8.5 x10 Normal 3.5-10.5 [facility] Comment on above: Performed By: #### 1 3113535, 4539151, 6697947, 9794379317 ####[facility] (DEFAULT)[address] [place] [address] CRPon 07-11-2022 CRP 0.5 mg/dL Normal <=0.5 [facility] Comment on above: Performed By: #### 1 6768070, 1642531, 2943983, 9453223669 ####[facility] (DEFAULT)[address] [place] [address] Extra Blueon 07-11-2022 Tube Collected Yes Invalid Interpretation Code [facility] Comment on above: Performed By: #### 7 536766, 82709971, 1687028889, 4091159, 1910225441, 0052874397 ####[facility] (DEFAULT)[address] [place] [address] 46304 Lactic Acidon 07-11-2022 Lactic Acid 13.0 mg/dL Normal 4.5-19.8 [facility] Comment on above: Performed By: #### 2 337657 ####[facility] (DEFAULT)[address] [place] [address] 22017 MRI Brain w/o Contraston MRI Brain w/o Contrast Normal [facility] Magnesiumon 07-11-2022 Magnesium [Mass/Vol] 2.16 mg/dL Normal 1.80-2.50 [facility] Comment on above: Performed By: #### 7 965035, 45482545, 2117124878, 1013335, 4678603662, 4373097836 ####[facility] (DEFAULT)[address] [place] [address] 55580 Nutrition Noteon 07-11-2022 Nutrition Note Normal [facility] POCT Glucose Levelon 022 Glucose [Mass/Vol] 210 mg/dL High [address] [place] [address] Comment on above: Performed By: #### 4 [id number] ####[facility] (DEFAULT)[address] [place] [address] 45146 Glucose [Mass/Vol] 198 mg/dL High [address] Comment on above: Performed By: #### 4 [id number] ####[facility] (DEFAULT)[address] [place] [address] 99888 Glucose [Mass/Vol] 154 mg/dL High [address] [place] [address] Comment on above: Performed By: #### 4 [id number] ####[facility] (DEFAULT)[address] [place] [address] 37950 Glucose [Mass/Vol] 164 mg/dL High [address] [place] [address] Comment on above: Performed By: #### 4 [id number] ####[facility] (DEFAULT)[address] [place] [address] 19452 Glucose [Mass/Vol] 162 mg/dL High 74118 [facility] Comment on above: Performed By: #### 4 [id number] ####[facility] (DEFAULT)[address] [place] [address] 10654 Glucose [Mass/Vol] 188 mg/dL High 74-118 [facility] Comment on above: Performed By: #### 4 644053299 ####[facility] (DEFAULT)[address] [place] [address] 96161 Progress Note - Nurseon Progress Note - Nurse [facility] Rad - MRI Reporton 2 Rad - MRI Report [id number].. 00 [id number]#1.0 0OTGTIFF [facility] Telemetry Stripson 2 Telemetry Strips [id number]. 00 [id number]#1.0 0OTGTIFF Normal [facility] Venous pHon 07-11-2022 pH Qasim 7.36 Low 7.37-7.44 [facility] Comment on above: Result Comment: Dr. Orozco wanted a venous blood gas and wanted to see the CO2. Venous PCO2 47 mmHgDrDenae Orozco visually saw the venous blood gas print out Performed By: #### 1 [id number] ####[facility] (DEFAULT)[address] [place] [address] 67094 XR Chest 1 View Frontalon XR Chest 1 View Frontal [facility] .Auto Diff 1on 07-10-2022 Auto [place] % 7 % Normal -12 [facility] Comment on above: Performed By: #### 1 8135033, 6093181, 1605083, 4020429277 ####[facility] (DEFAULT)[address] [place] [address] 26153 Baso Abs# 0.0 x10 Normal 0.0-0.2 [facility] Comment on above: Performed By: #### 1 1745291, 2762372, 6473145, [id number] ####[facility] (DEFAULT)[address] [place] [address] 79658 Basophils/100 WBC (Bld) 0.4 % Normal 0.2-2.0 [facility] Comment on above: Performed By: #### 1 4424397, 3389727, 0223983, 9382289678 ####[facility] (DEFAULT)[address] [place] [address] 13399 Eos Abs# 0.5 x10 High 0.0-0.4 [facility] Comment on above: Performed By: #### 1 0701931, 1103183, 8674654, [id number] ####[facility] (DEFAULT)[address] [place] [address] 83680 Eosinophils/100 WBC (Bld) 6.2 % High 0.9-4.0 [facility] Comment on above: Performed By: #### 1 4561534, 8576443, 3438998, 5943904821 ####[facility] (DEFAULT)[address] [place] [address] 93304 Lymph Abs# 2.7 x10 Normal 1.3-2.9 [facility] Comment on above: Performed By: #### 1 2767311, 8300040, 2369574, 4357801277 ####[facility] (DEFAULT)[address] [place] [address] 28167 Lymphocytes/100 WBC (Bld) 33 % Normal 14-48 [facility] Comment on above: Performed By: #### 1 6736744, 5253292, 6698703, 5166423908 ####[facility] (DEFAULT)[address] [place] [address] 19254 [place] Abs# 0.6 x10 Normal 0.0-0.8 [facility] Comment on above: Performed By: #### 1 0613012, 2401432, 0953140, 2910914336 ####[facility] (DEFAULT)[address] [place] [address] 12138 Neut Abs# 4.3 x10 Normal 1.5-9.2 [facility] Comment on above: Performed By: #### 1 1618707, 4944690, 7989420, 5292993866 ####[facility] (DEFAULT)[address] [place] [address] Neutrophils/100 WBC (Bld) 53 % Normal 44-88 [facility] Comment on above: Performed By: #### 1 7599619, 6606018, 7926041, 8911524961 ####[facility] (DEFAULT)[address] [place] [address] BMP Standardon 07-10-2022 eGFR Non AA 57 mL/min/1.73m2 Invalid Interpretation Code [facility] Comment on above: Performed By: #### 1 5979804, 7858159, 7114069, [id number] ####[facility] (DEFAULT)[address] [place] [address] eGFR AA >60 Invalid Interpretation Code [facility] Comment on above: Result Comment: Station Helper lokesh Kidney disease could be indicated at eGFRs of less than 60 ml/min/1.73m2. Kidney Failure is indicated at less than 15 ml/min/1.73m2 Performed By: #### 1 [id number], [id number] ####[facility] (DEFAULT)[address] [place] [id number] Anion gap [Moles/Vol] 14.0 mmol/L Normal 5.0-19.0 [facility] Comment on above: Performed By: #### 1 [id number], 2680021, 2587713, [id number] ####[facility] (DEFAULT)[address] [place] [address] 71576 Calcium [Mass/Vol] 9.2 mg/dL Normal 8.9-10.3 [facility] Comment on above: Performed By: #### 1 1287146, 6905797, 9160947, [id number] ####[facility] (DEFAULT)[address] [place] [address] 88935 Chloride [Moles/Vol] 105 mmol/L Normal 101-111 [facility] Comment on above: Performed By: #### 1 5828497, 4479136, 3033613, [id number] ####[facility] (DEFAULT)[address] [place] [address] 94504 CO2 [Moles/Vol] 20 mmol/L Low 21-32 [facility] Comment on above: Performed By: #### 1 7711637, 2056228, 5072662, [id number] ####[facility] (DEFAULT)[address] [place] [address] 50267 Creatinine [Mass/Vol] 1.26 mg/dL Normal 0.90-1.30 [facility] Comment on above: Performed By: #### 1 3600344, 3155412, 7844976, [id number] ####[facility] (DEFAULT)[address] [place] [address] 97517 Glucose [Mass/Vol] 210.0 mg/dL High 74.0-118.0 [facility] Comment on above: Performed By: #### 1 6819657, 2984956, 6915469, [id number] ####[facility] (DEFAULT)[address] [place] [address] 23859 Osmolality 298 mOsm/L Invalid Interpretation Code [facility] Comment on above: Performed By: #### 1 5177872, 8187839, 2638858, [id number] ####[facility] (DEFAULT)[address] [place] [address] 64824 Potassium [Moles/Vol] 5.3 mmol/L High 3.6-5.1 [facility] Comment on above: Performed By: #### 1 1758671, 2425455, 5935702, [id number] ####[facility] (DEFAULT)[address] [place] [address] 92024 Sodium [Moles/Vol] 134.0 mmol/L Low 136.0-144.0 [facility] Comment on above: Performed By: #### 1 0327708, 5396660, 1553177, [id number] ####[facility] (DEFAULT)[address] [place] [address] 97101 Urea nitrogen [Mass/Vol] 78 mg/dL High 8-26 [facility] Comment on above: Performed By: #### 1 8173118, 1951212, 3816671, [id number] ####[facility] (DEFAULT)[address] [place] [address] 63485 Urea nitrogen/Creatinine [Mass ratio] 62.0 mg/mg High 4.6-16.2 [facility] Comment on above: Performed By: #### 1 4218671, 3606710, 8760445, [id number] ####[facility] (DEFAULT)[address] [place] [address] 72100 C Urineon 07-10-2022 C Urine Normal [facility] Comment on above: Performed By: #### 1 [id number], 6367605, 60015647 ####[facility] (DEFAULT)[address] [place] [address] 07947 CBC w/ Auto Diffon Erythrocyte distribution width (RBC) [Ratio] 13.6 % Normal 11.5-15.0 [facility] Comment on above: Performed By: #### 1 0943550, 2094598, 9959017, [id number] ####[facility] (DEFAULT)[address] [place] [address] 08222 Hematocrit (Bld) [Volume fraction] 34.9 % Normal 34.8-51.9 [facility] Comment on above: Performed By: #### 1 3952526, 9609085, 4547984, 4702256419 ####[facility] (DEFAULT)[address] [place] [address] 87336 Hemoglobin (Bld) [Mass/Vol] 11.5 g/dL Low 11.8-17.7 [facility] Comment on above: Performed By: #### 1 7868700, 1228660, 4210332, 9071794433 ####[facility] (DEFAULT)[address] [place] [address] 99386 Instr WBC 8.1 x10 Invalid Interpretation Code [facility] Comment on above: Performed By: #### 1 4591049, 8448536, 4981900, [id number] ####[facility] (DEFAULT)[address] [place] [address] 25807 Man Diff? Auto Normal [facility] Comment on above: Performed By: #### 1 9767695, 5661678, 1613461, [id number] ####[facility] (DEFAULT)[address] [place] [address] 59984 MCH (RBC) [Entitic mass] 29 pg Normal 24-34 [facility] Comment on above: Performed By: #### 1 6322772, 5982616, 0379742, [id number] ####[facility] (DEFAULT)[address] [place] [address] 42054 MCHC (RBC) [Mass/Vol] 33 g/dL Normal 26-37 [facility] Comment on above: Performed By: #### 1 3874111, 0613260, 7264315, [id number] ####[facility] (DEFAULT)[address] [place] [address] 49480 MCV (RBC) [Entitic vol] 89 fL Normal 81-100 [facility] Comment on above: Performed By: #### 1 6066099, 6470097, 4443765, [id number] ####[facility] (DEFAULT)[address] [place] [address] 46685 Platelet 256 x10 Normal 138-427 [facility] Comment on above: Performed By: #### 1 6316751, 7893522, 2648075, [id number] ####[facility] (DEFAULT)[address] [place] [address] 44612 Platelet mean volume (Bld) [Entitic vol] 12.3 fL High 6.3-10.2 [facility] Comment on above: Performed By: #### 1 7009268, 1637631, 6237440, [id number] ####[facility] (DEFAULT)[address] [place] [address] 95650 RBC 3.92 x10 Normal 3.70-5.30 [facility] Comment on above: Performed By: #### 1 0404995, 3665979, 9765057, [id number] ####[facility] (DEFAULT)[address] [place] [address] 53065 WBC 8.1 x10 Normal 3.5-10.5 [facility] Comment on above: Performed By: #### 1 0291690, 0851340, 9888391, 0704756394 ####[facility] (DEFAULT)[address] [place] [address] 61946 CKon 07-10-2022 CK [Catalytic activity/Vol] 76 U/L Normal 49-397 [facility] Comment on above: Performed By: #### 1 6440580, 8165743, 5191320, [id number] ####[facility] (DEFAULT)[address] [place] [address] Chest/Abdomen/Pelvis w/o Contraston 07-10-2022 CT Chest/Abdomen/Pelvis w/o Contrast Normal [facility] MRI Brain w/o Contraston MRI Brain w/o Contrast Normal [facility] POCT Glucose Levelon 022 Glucose [Mass/Vol] 231 mg/dL High 74-118 [facility] Comment on above: Performed By: #### 4 [id number] ####[facility] (DEFAULT)[address] [place] [address] 34307 Glucose [Mass/Vol] 214 mg/dL High 74-118 [facility] Comment on above: Performed By: #### 4 [id number] ####[facility] (DEFAULT)[address] [place] [address] 15208 Glucose [Mass/Vol] 163 mg/dL High 74-118 [facility] Comment on above: Performed By: #### 4 [id number] ####[facility] (DEFAULT)[address] [place] [address] 55333 Glucose [Mass/Vol] 174 mg/dL High 74-118 [facility] Comment on above: Performed By: #### 4 [id number] ####[facility] (DEFAULT)[address] [place] [address] 06542 Progress Note - Nurseon 10-0 Progress Note - Nurse [facility] Progress Note - Nurse Normal [facility] Telemetry Stripson Telemetry Strips [id number]#1.0 0OTGTIFF Normal [facility] .Auto Diff 07-09-2022 Auto [place] % 7 % Normal -12 [facility] Comment on above: Performed By: #### 7 194695, 3220063, 7754271, 306318057, 9573798740, 08671615 ####[facility] (DEFAULT)[address] [place] [address] Baso Abs# 0.0 x10 Normal 0.0-0.2 [facility] Comment on above: Performed By: #### 7 840636, 2346283, 7428767, 734039374, 4957112469, 18732847 ####[facility] (DEFAULT)[address] [place] [address] Basophils/100 WBC (Bld) 0.2 % Normal 0.2-2.0 [facility] Comment on above: Performed By: #### 7 167970, 9851728, 4532506, 495830548, 8095577273, 29578539 ####[facility] (DEFAULT)[address] [place] [address] Eos Abs# 0.4 x10 Normal 0.0-0.4 [facility] Comment on above: Performed By: #### 7 115821, 0878355, 7082433, 840861982, 2311044223, 49370058 ####[facility] (DEFAULT)[address] [place] [address] 40292 Eosinophils/100 WBC (Bld) 4.4 % High 0.9-4.0 [facility] Comment on above: Performed By: #### 7 930113, 7909605, 0412042, 404742063, 2865023886, 06851385 ####[facility] (DEFAULT)[address] [place] [address] 39930 Lymph Abs# 2.2 x10 Normal 1.3-2.9 [facility] Comment on above: Performed By: #### 7 450441, 4675023, 4646566, 201454023, 1215271897, 56641242 ####[facility] (DEFAULT)[address] [place] [address] 02272 Lymphocytes/100 WBC (Bld) 21 % Normal 14-48 [facility] Comment on above: Performed By: #### 7 923704, 8490550, 7973889, 253260197, 3843118967, 41566791 ####[facility] (DEFAULT)[address] [place] [address] [place] Abs# 0.8 x10 Normal 0.0-0.8 [facility] Comment on above: Performed By: #### 7 855154, 5513987, 6031966, 432454097, 0175735375, 97259746 ####[facility] (DEFAULT)[address] [place] [address] Neut Abs# 6.8 x10 Normal 1.5-9.2 [facility] Comment on above: Performed By: #### 7 982224, 1707434, 2199496, 557288106, 5567623536, 80896560 ####[facility] (DEFAULT)[address] [place] [address] Neutrophils/100 WBC (Bld) 67 % Normal 44-88 [facility] Comment on above: Performed By: #### 7 032023, 3264572, 9606518, 838859131, 7174397746, 50700264 ####[facility] (DEFAULT)[address] [place] [address] CBC w/ Auto Diffon 2 Erythrocyte distribution width (RBC) [Ratio] 13.4 % Normal 11.5-15.0 [facility] Comment on above: Performed By: #### 7 069508, 2571550, 0933922, 893193135, 4178978445, 19717916 ####[facility] (DEFAULT)[address] [place] [address] Hematocrit (Bld) [Volume fraction] 37.2 % Normal 34.8-51.9 [facility] Comment on above: Performed By: #### 7 137287, 0031796, 0210699, 896455502, 4277397987, 67980420 ####[facility] (DEFAULT)[address] [place] [address] Hemoglobin (Bld) [Mass/Vol] 12.4 g/dL Normal 11.8-17.7 [facility] Comment on above: Performed By: #### 7 735483, 5869179, 0861436, 730009404, 7916947802, 33639682 ####[facility] (DEFAULT)[address] [place] [address] Instr WBC 10.2 x10 Invalid Interpretation Code [facility] Comment on above: Performed By: #### 7 708341, 7120568, 4158063, 195136392, 6189323229, 36740469 ####[facility] (DEFAULT)[address] [place] [address] Man Diff? Auto Normal [facility] Comment on above: Performed By: #### 7 998828, 6696235, 9057422, 810240918, 0736147448, 23761333 ####[facility] (DEFAULT)[address] [place] [address] MCH (RBC) [Entitic mass] 29 pg Normal 24-34 [facility] Comment on above: Performed By: #### 7 264430, 6767172, 9515643, 237466859, 1819565058, 96477610 ####[facility] (DEFAULT)[address] [place] [address] 81604 MCHC (RBC) [Mass/Vol] 33 g/dL Normal 26-37 [facility] Comment on above: Performed By: #### 7 168141, 3823584, 0717744, 822071693, 0729953758, 44009307 ####[facility] (DEFAULT)[address] [place] [address] 57533 MCV (RBC) [Entitic vol] 88 fL Normal 81-100 [facility] Comment on above: Performed By: #### 7 103225, 4806644, 5283362, 779590138, 8342246919, 73159292 ####[facility] (DEFAULT)[address] [place] [address] 67374 Platelet 284 x10 Normal 138-427 [facility] Comment on above: Performed By: #### 7 318963, 0719431, 6219291, 287137296, 9168717128, 21512039 ####[facility] (DEFAULT)[address] [place] [address] Platelet mean volume (Bld) [Entitic vol] 12.1 fL High 6.3-10.2 [facility] Comment on above: Performed By: #### 7 814023, 6668784, 6028668, 139582936, 7501891420, 75371907 ####[facility] (DEFAULT)[address] [place] [address] RBC 4.22 x10 Normal 3.70-5.30 [facility] Comment on above: Performed By: #### 7 265406, 7977713, 7110123, 377294420, 9237877883, 58984897 ####[facility] (DEFAULT)[address] [place] [address] WBC 10.2 x10 Normal 3.5-10.5 [facility] Comment on above: Performed By: #### 7 447525, 7315773, 9846740, 387138820, 3873528353, 24849568 ####[facility] (DEFAULT)[address] [place] [address] Standardon 07-09-2022 eGFR Non AA 53 mL/min/1.73m2 Invalid Interpretation Code [facility] Comment on above: Performed By: #### 7 116160, 0045916, 7889084, 114788316, 3722964033, 80495353 ####[facility] (DEFAULT)[address] [place] [address] eGFR AA >60 Invalid Interpretation Code [facility] Comment on above: Result Comment: [employer] lokesh Kidney disease could be indicated at eGFRs of less than 60 ml/min/1.73m2. Kidney Failure is indicated at less than 15 ml/min/1.73m2 Performed By: #### 7 461488, 6472791, 4190674, 827261525, 6957607114, 30269194 ####[facility] (DEFAULT)[address] [place] [address] Albumin [Mass/Vol] 3.7 g/dL Normal 3.5-5.0 [facility] Comment on above: Performed By: #### 7 523841, 3518609, 7519307, 045375040, 8559781484, 13213564 ####[facility] (DEFAULT)[address] [place] [address] 19336 Albumin/Globulin [Mass ratio] 1.0 {ratio} Low 1.4-2.6 [facility] Comment on above: Performed By: #### 7 091054, 2418311, 3980555, 385473690, 6209072575, 75872903 ####[facility] (DEFAULT)[address] [place] [address] Alk Phos 61 IU/L Normal 32-91 [facility] Comment on above: Performed By: #### 7 702839, 3453137, 4794246, 547357985, 4807368887, 61858498 ####[facility] (DEFAULT)[address] [place] [address] ALT [Catalytic activity/Vol] 18.0 U/L Normal 17.0-63.0 [facility] Comment on above: Performed By: #### 7 139682, 0533158, 8710961, 977169717, 8191265445, 16952616 ####[facility] (DEFAULT)[address] [place] [address] 94209 Anion gap [Moles/Vol] 17.0 mmol/L Normal 5.0-19.0 [facility] Comment on above: Performed By: #### 7 831684, 3258847, 4633339, 131740319, 7378714543, 64849145 ####[facility] (DEFAULT)[address] [place] [address] 66544 AST [Catalytic activity/Vol] 17 U/L Normal 15-41 [facility] Comment on above: Performed By: #### 7 791128, 8577266, 9966429, 968378283, 1226557457, 06807972 ####[facility] (DEFAULT)[address] [place] [address] 71109 Bili Total 0.9 mg/dL Normal 0.3-1.2 [facility] Comment on above: Performed By: #### 7 285558, 0689760, 2716427, 682310218, 1563434624, 96652184 ####[facility] (DEFAULT)[address] [place] [address] 52800 Calcium [Mass/Vol] 9.2 mg/dL Normal 8.9-10.3 [facility] Comment on above: Performed By: #### 7 185569, 0146112, 9093692, 610025766, 4062394550, 48325764 ####[facility] (DEFAULT)[address] [place] [address] 69319 Chloride [Moles/Vol] 105 mmol/L Normal 101-111 [facility] Comment on above: Performed By: #### 7 305918, 5778112, 8719945, 211177653, 2199361082, 11715034 ####[facility] (DEFAULT)[address] [place] [address] 81917 CO2 [Moles/Vol] 19 mmol/L Low 21-32 [facility] Comment on above: Performed By: #### 7 471171, 0125120, 3572557, 803391814, 7060791349, 43680802 ####[facility] (DEFAULT)[address] [place] [address] 36689 Creatinine [Mass/Vol] 1.35 mg/dL High 0.90-1.30 [facility] Comment on above: Performed By: #### 7 336359, 0814333, 0306942, 761406177, 7394912398, 67893855 ####[facility] (DEFAULT)[address] [place] [address] 22969 Globulin (S) [Mass/Vol] 3.6 g/dL Normal 1.5-4.3 [facility] Comment on above: Performed By: #### 7 123661, 4557084, 6156605, 645955173, 3498516135, 75344648 ####[facility] (DEFAULT)[address] [place] [address] 52397 Glucose [Mass/Vol] 152.0 mg/dL High 74.0-118.0 [facility] Comment on above: Performed By: #### 7 923458, 5408630, 6899259, 913517533, 8306555184, 95102927 ####[facility] (DEFAULT)[address] [place] [address] 59603 Osmolality 305 mOsm/L Invalid Interpretation Code [facility] Comment on above: Performed By: #### 7 077135, 0089379, 3945510, 764459246, 9763797880, 99098852 ####[facility] (DEFAULT)[address] [place] [address] 84448 Potassium [Moles/Vol] 5.6 mmol/L High 3.6-5.1 [facility] Comment on above: Performed By: #### 7 059954, 5558422, 8580438, 698942284, 9921495649, 45549780 ####[facility] (DEFAULT)[address] [place] [address] 64224 Protein [Mass/Vol] 7.3 g/dL Normal 6.5-8.1 [facility] Comment on above: Performed By: #### 7 275042, 5916379, 7043364, 630288071, 7835027393, 22954681 ####[facility] (DEFAULT)[address] [place] [address] 02917 Sodium [Moles/Vol] 135.0 mmol/L Low 136.0-144.0 [facility] Comment on above: Performed By: #### 7 535640, 4018764, 8323891, 044235756, 3120282213, 41460433 ####[facility] (DEFAULT)[address] [place] [address] 63926 Urea nitrogen [Mass/Vol] 101 mg/dL High 8-26 [facility] Comment on above: Result Comment: Crit ical BUN 101 result called and read back ok to: 2S LISA SALDIVAR at: 05:53:11 07/09/2022 by: WALKER Performed By: #### 7 712950, 2272568, 9840675, 022499070, 1644767495, 42781881 ####[facility] (DEFAULT)[address] [place] [address] 38710 Urea nitrogen/Creatinine [Mass ratio] 75.0 mg/mg High 4.6-16.2 [facility] Comment on above: Performed By: #### 7 944784, 7162307, 2935103, 699115933, 7879249553, 77131644 ####[facility] (DEFAULT)[address] [place] [address] 09225 ED Clinical Summaryon 2021 ED Clinical Summary Normal [facility] ED Patient Education Noteon 07-09-2022 ED Patient Education Note Education Materials [facility] ED Patient Summaryon ED Patient Summary Normal [facility] Magnesiumon 07-09-2022 Magnesium [Mass/Vol] 2.32 mg/dL Normal 1.80-2.50 [facility] Comment on above: Performed By: #### 7 971279, 3902950, 3907493, 103986620, 7015914304, 17104718 ####[facility] (DEFAULT)[address] [place] [address] 97431 Nutrition Noteon 07-09-2022 Nutrition Note [facility] POCT Glucose Levelon Glucose [Mass/Vol] 251 mg/dL High [address] [place] [address] Comment on above: Performed By: #### 4 [id number] ####[facility] (DEFAULT)[address] [place] [address] 28258 Glucose [Mass/Vol] 214 mg/dL High [address] [place] [address] Comment on above: Performed By: #### 4 [id number] ####[facility] (DEFAULT)[address] [place] [address] 26801 Glucose [Mass/Vol] 261 mg/dL High [address] [place] [address] Comment on above: Performed By: #### 4 [id number] ####[facility] (DEFAULT)[address] [place] [address] 12815 Glucose, POC See Comment Invalid Interpretation Code [address] [place] [address] Comment on above: Result Comment: Kasandra vaz Result per Ceci Vazquez on Performed By: #### 4 [id number] ####[facility] (DEFAULT)[address] [place] [address] 21314 Glucose, POC See Comment Invalid Interpretation Code [address] [place] [address] Comment on above: Result Comment: Kasandra vaz Result per Ceci Vazquez on 2 Performed By: #### 4 [id number] ####[facility] (DEFAULT)[address] [place] [address] 10288 Glucose [Mass/Vol] 80 mg/dL Normal 74-118 [facility] Comment on above: Performed By: #### 4 [id number] ####[facility] (DEFAULT)[address] [place] [address] 70994 Glucose [Mass/Vol] 224 mg/dL High 74-118 [facility] Comment on above: Performed By: #### 4 [id number] ####[facility] (DEFAULT)[address] [place] [address] 21234 Glucose [Mass/Vol] 157 mg/dL High [address] [place] [address] Comment on above: Performed By: #### 4 [id number] ####[facility] (DEFAULT)[address] [place] [address] 16957 Glucose [Mass/Vol] 148 mg/dL High [address] [place] [address] Comment on above: Performed By: #### 4 [id number] ####[facility] (DEFAULT)[address] [place] [address] 11850 Glucose [Mass/Vol] 145 mg/dL High -[address] [place] [address] Comment on above: Performed By: #### 4 [id number] ####[facility] (DEFAULT)[address] [place] [address] 74672 Glucose [Mass/Vol] 133 mg/dL High [address] Comment on above: Performed By: #### 4 [id number] ####[facility] (DEFAULT)[address] [place] [address] 67771 TSH w/ Reflex to FT4on 07-09 TSH Qn 1.97 m[IU]/L Normal 0.45-5.33 [facility] Comment on above: Result Comment: Gene ral Population (males and non- females, aged 21-88) 0.45 - 5.33 Females, 1st Trimester 0.05 - 3.70 Females, 2nd Trimester 0.31 - 4.35 Females, 3rd Trimester 0.41 - 5.18 Performed By: #### 7 223832, 6255739, 4127028, 751013380, 8961553287, 89859835 ####[facility] (DEFAULT)[address] [place] [address] Telemetry Stripson 2 Telemetry Strips [id number]#1.00 OTGTIFF [facility] UA Oobdw7gm 07-09-2022 UA Bacteria 2+ [facility] Comment on above: Order Comment: Urina lysis Microscopic order added on by [employer] Rules system. Performed By: #### 5 5747162, 9851958, [id number] ####[facility] (DEFAULT)[address] [place] [address] UA RBC 0-2 [facility] Comment on above: Order Comment: Urina lysis Microscopic order added on by [employer] system. Performed By: #### 5 4569957, 3866249, [id number] ####[facility] (DEFAULT)[address] [place] [address] UA Squam Epi Rare [facility] Comment on above: Order Comment: Urina lysis Microscopic order added on by [employer] system. Performed By: #### 5 4143097, 5567051, [id number] ####[facility] (DEFAULT)[address] [place] [address] UA WBC 20-25 [facility] Comment on above: Order Comment: Urina lysis Microscopic order added on by [employer] system. Performed By: #### 5 0868464, 8456361, [id number] ####[facility] (DEFAULT)[address] [place] [address] UA w Culture if Ind Standard on 07-09-2022 Breakpoint UA [facility] Comment on above: Order Comment: Autom atically placed with order Insert Rivera Cath Performed By: #### 5 5933492, 7583031, [id number] ####[facility] (DEFAULT)[address] [place] [address] 10914 Color (U) Yellow [facility] Comment on above: Order Comment: Autom atically placed with order Insert Rivera Cath Performed By: #### 5 9252778, 3392888, [id number] ####[facility] (DEFAULT)[address] [place] [address] Culture? Indicated Invalid Interpretation Code [facility] Comment on above: Order Comment: Autom atically placed with order Insert Rivera Cath Result Comment: Resu lt created by rule GL_MAGR_ADD_UA_CULT Result created by rule GL_MAGR_ADD_UA_CULT Result created by rule GL_MAGR_ADD_UA_CULT1 Result created by rule GL_MAGR_ADD_UA_CULT Performed By: #### 5 5184458, 1262029, [id number] ####[facility] (DEFAULT)[address] [place] [address] Glucose (U) [Mass/Vol] Negative [facility] Comment on above: Order Comment: Autom atically placed with order Insert Rivera Cath Performed By: #### 5 2037485, 7375254, [id number] ####[facility] (DEFAULT)[address] [place] [address] Ketones Ql (U) Negative [facility] Comment on above: Order Comment: Autom atically placed with order Insert Rivera Cath Performed By: #### 5 [id number], [id number], [id number] ####[facility] (DEFAULT)[address] [place] [address] 14802 Micro? Indicated Invalid Interpretation Code [facility] Comment on above: Order Comment: Autom atically placed with order Insert Rivera Cath Result Comment: Resu lt created by rule GL_MAGR_ADD_UA_MICRO Performed By: #### 5 [id number], [id number], [id number] ####[facility] (DEFAULT)[address] [place] [address] UA Bilirubin Negative [facility] Comment on above: Order Comment: Autom atically placed with order Insert Rivera Cath Performed By: #### 5 [id number], [id number], [id number] ####[facility] (DEFAULT)[address] [place] [address] UA Blood TRACE Abnormal NEGATIVE [facility] Comment on above: Order Comment: Autom atically placed with order Insert Rivera Cath Performed By: #### 5 [id number], [id number], [id number] ####[facility] (DEFAULT)[address] [place] [address] UA Clarity CLEAR Normal CLEAR [facility] Comment on above: Order Comment: Autom atically placed with order Insert Rivera Cath Performed By: #### 5 [id number], [id number], [id number] ####[facility] (DEFAULT)[address] [place] [address] UA Leuk Est MODERATE Abnormal NEGATIVE [facility] Comment on above: Order Comment: Autom atically placed with order Insert Rivera Cath Performed By: #### 5 [id number], [id number], [id number] ####[facility] (DEFAULT)[address] [place] [address] UA Nitrite Positive Abnormal NEGATIVE [facility] Comment on above: Order Comment: Autom atically placed with order Insert Rivera Cath Performed By: #### 5 [id number], [id number], [id number] ####[facility] (DEFAULT)[address] [place] [address] 27084 UA pH 5.5 Normal 5-8 [facility] Comment on above: Order Comment: Autom atically placed with order Insert Rivera Cath Performed By: #### 5 [id number], [id number], [id number] ####[facility] (DEFAULT)[address] [place] [address] UA Protein TRACE Abnormal NEGATIVE [facility] Comment on above: Order Comment: Autom atically placed with order Insert Rivera Cath Performed By: #### 5 [id number], [id number], [id number] ####[facility] (DEFAULT)[address] [place] [address] 99654 UA Spec Grav 1.020 Normal 1.001-1.035 [facility] Comment on above: Order Comment: Autom atically placed with order Insert Rivera Cath Performed By: #### 5 [id number], [id number], [id number] ####[facility] (DEFAULT)[address] [place] [address] UA Urobilinogen 0.2 mg/dL Normal 0.2-1.0 [facility] Comment on above: Order Comment: Autom atically placed with order Insert Rivera Cath Performed By: #### 5 [id number], 7890806, [id number] ####[facility] (DEFAULT)[address] [place] [address] Urine Source Catheter Normal [facility] Comment on above: Order Comment: Autom atically placed with order Insert Rivera Cath Performed By: #### 5 [id number], 1193561, [id number] ####[facility] (DEFAULT)[address] [place] [address] Vit B12 Lvlon 07-09-2022 Vit B12 405 Normal 180-914 [facility] Comment on above: Performed By: #### 7 [id number], 7277317, 6055867, 438757873, [id number], 15426378 ####[facility] (DEFAULT)[address] [place] [address] .Auto Diff 1on 07-08-2022 Auto [place] % 4 % Normal 1-12 [facility] Comment on above: Performed By: #### 5 [id number], [id number], 50599056, 2708194620, 2227197, 5861112 ####[facility] (DEFAULT)[address] [place] [address] Baso Abs# 0.0 x10 Normal 0.0-0.2 [facility] Comment on above: Performed By: #### 5 [id number], 1907368453, 92818140, 9709516121, 1770461, 4790028 ####[facility] (DEFAULT)[address] [place] [address] Basophils/100 WBC (Bld) 0.2 % Normal 0.2-2.0 [facility] Comment on above: Performed By: #### 5 [id number], 9901813925, 01458560, 4862561474, 4531188, 9354487 ####[facility] (DEFAULT)[address] [place] [address] 54693 Eos Abs# 0.5 x10 High 0.0-0.4 [facility] Comment on above: Performed By: #### 5 [id number], 4210191330, 04527505, 0924202553, 1545546, 2360392 ####[facility] (DEFAULT)[address] [place] [address] 23541 Eosinophils/100 WBC (Bld) 4.1 % High 0.9-4.0 [facility] Comment on above: Performed By: #### 5 [id number], 0121108821, 10956205, 5611488610, 2854552, 1144917 ####[facility] (DEFAULT)[address] [place] [address] 84871 Lymph Abs# 1.9 x10 Normal 1.3-2.9 [facility] Comment on above: Performed By: #### 5 137434179, 5244607108, 33169587, 6752142637, 3090043, 6183817 ####[facility] (DEFAULT)[address] [place] [address] 76884 Lymphocytes/100 WBC (Bld) 17 % Normal 14-48 [facility] Comment on above: Performed By: #### 5 454373344, 1160692075, 43918473, 7121647469, 1839881, 4978627 ####[facility] (DEFAULT)[address] [place] [address] 13958 [place] Abs# 0.4 x10 Normal 0.0-0.8 [facility] Comment on above: Performed By: #### 5 [id number], 1045117874, 52988108, 2733489356, 3096301, 3412386 ####[facility] (DEFAULT)[address] [place] [address] 18542 Neut Abs# 8.4 x10 Normal 1.5-9.2 [facility] Comment on above: Performed By: #### 5 [id number], 7349858663, 29850414, 0275259696, 6349011, 3020252 ####[facility] (DEFAULT)[address] [place] [address] 22496 Neutrophils/100 WBC (Bld) 75 % Normal 44-88 [facility] Comment on above: Performed By: #### 5 [id number], 5470288490, 88111902, 7860729186, 4266177, 7844139 ####[facility] (DEFAULT)[address] [place] [address] 10989 BNP.on 07-08-2022 Internal Control Pass Normal [facility] Comment on above: Performed By: #### 5 [id number], 3168876039, 55885082, 2563048775, 6234220, 4752172 ####[facility] (DEFAULT)[address] [place] [address] 16477 Natriuretic peptide B (Bld) [Mass/Vol] 318.0 pg/mL High 0.0-100.0 [facility] Comment on above: Result Comment: BNP results greater than 100 pg/mL are considered abnormal and suggestive of patients with CHF. Higher BNP concentrations measured in the first 72 hours after an acute coronary syndorme are associated with an increased risk of , myocardial infarction, and CHF. Performed By: #### 5 [id number], 5005176577, 59287539, 3323421582, 7931380, 2044778 ####[facility] (DEFAULT)[address] [place] [address] 32067 CBC w/ Auto Diffon Erythrocyte distribution width (RBC) [Ratio] 13.7 % Normal 11.5-15.0 [facility] Comment on above: Performed By: #### 5 [id number], 6927942380, 44274501, 0639382122, 2590692, 8082534 ####[facility] (DEFAULT)[address] [place] [address] 87509 Hematocrit (Bld) [Volume fraction] 43.1 % Normal 34.8-51.9 [facility] Comment on above: Performed By: #### 5 [id number], 9985266220, 01147900, 3635364921, 5196195, 2232064 ####[facility] (DEFAULT)[address] [place] [address] Hemoglobin (Bld) [Mass/Vol] 14.1 g/dL Normal 11.8-17.7 [facility] Comment on above: Performed By: #### 5 [id number], 9733204296, 40109883, 3467267402, 1129043, 8494392 ####[facility] (DEFAULT)[address] [place] [address] Instr WBC 11.2 x10 Invalid Interpretation Code [facility] Comment on above: Performed By: #### 5 [id number], 6951871307, 38532850, 1211469937, 4655624, 7044091 ####[facility] (DEFAULT)[address] [place] [address] Man Diff? Auto Normal [facility] Comment on above: Performed By: #### 5 [id number], 9232737306, 23171690, 9125992251, 5210762, 2104060 ####[facility] (DEFAULT)[address] [place] [address] 59109 MCH (RBC) [Entitic mass] 29 pg Normal 24-34 [facility] Comment on above: Performed By: #### 5 [id number], 5323322859, 90546912, 0019258841, 0114309, 1849338 ####[facility] (DEFAULT)[address] [place] [address] 82314 MCHC (RBC) [Mass/Vol] 33 g/dL Normal 26-37 [facility] Comment on above: Performed By: #### 5 [id number], 4503505167, 77099899, 8145708163, 1643316, 4134136 ####[facility] (DEFAULT)[address] [place] [address] 55776 MCV (RBC) [Entitic vol] 88 fL Normal 81-100 [facility] Comment on above: Performed By: #### 5 395102165, 4698677519, 29857472, 8420964634, 6487348, 0259473 ####[facility] (DEFAULT)[address] [place] [address] 66185 Platelet 278 x10 Normal 138-427 [facility] Comment on above: Performed By: #### 5 334036141, 8992340538, 67792011, 1431556651, 4061455, 8522685 ####[facility] (DEFAULT)[address] [place] [address] 35747 Platelet mean volume (Bld) [Entitic vol] 11.4 fL High 6.3-10.2 [facility] Comment on above: Performed By: #### 5 454572161, 7326699409, 41135038, 6195398725, 9931222, 6282838 ####[facility] (DEFAULT)[address] [place] [address] 12849 RBC 4.90 x10 Normal 3.70-5.30 [facility] Comment on above: Performed By: #### 5 [id number], 7818744429, 73183889, 0980552249, 7205265, 2312660 ####[facility] (DEFAULT)[address] [place] [address] 19430 WBC 11.2 x10 High 3.5-10.5 [facility] Comment on above: Performed By: #### 5 525361768, 1053409230, 05358778, 9015884953, 6295677, 7417119 ####[facility] (DEFAULT)[address] [place] [address] 23984 CMP Standardon 07-08-2022 Urea nitrogen [Mass/Vol] 100 mg/dL High 8-26 [facility] Comment on above: Result Comment: Resu lts confirmed by dilutionCritical BUN 100 result called and read back ok to: KERI MALDONADO RN IN ER at: 20:29:42 07/08/2022 by: SYLVIA Performed By: #### 5 [id number], 3369077361, 10418793, 9337337474, 6143175, 1853046 ####[facility] (DEFAULT)[address] [place] [address] 85618 eGFR Non AA 41 mL/min/1.73m2 Invalid Interpretation Code [facility] Comment on above: Performed By: #### 5 [id number], 1495139550, 79084744, 2528929104, 8054387, 5194538 ####[facility] (DEFAULT)[address] [place] [address] eGFR AA 49 mL/min/1.73m2 Invalid Interpretation Code [facility] Comment on above: Result Comment: Station Hel[employer] lokesh Kidney disease could be indicated at eGFRs of less than 60 ml/min/1.73m2. Kidney Failure is indicated at less than 15 ml/min/1.73m2 Performed By: #### 5 [id number], 9111673825, 86594115, 7247786111, 0155404, 5079814 ####[facility] (DEFAULT)[address] [place] [address] Albumin [Mass/Vol] 4.0 g/dL Normal 3.5-5.0 [facility] Comment on above: Performed By: #### 5 597092519, 8750276548, 73145991, 1987657874, 0206981, 3478202 ####[facility] (DEFAULT)[address] [place] [address] Albumin/Globulin [Mass ratio] 1.0 {ratio} Low 1.4-2.6 [facility] Comment on above: Performed By: #### 5 [id number], 6338286740, 63127166, 0982693298, 1353490, 9360290 ####[facility] (DEFAULT)[address] [place] [address] 78578 Alk Phos 70 IU/L Normal 32-91 [facility] Comment on above: Performed By: #### 5 352041811, 6220579454, 21995642, 1831350174, 1156300, 4802297 ####[facility] (DEFAULT)[address] [place] [address] ALT [Catalytic activity/Vol] 19.0 U/L Normal 17.0-63.0 [facility] Comment on above: Performed By: #### 5 133430049, 7556848706, 94658244, 6407019390, 1697988, 1475443 ####[facility] (DEFAULT)[address] [place] [address] 34015 Anion gap [Moles/Vol] 19.0 mmol/L Normal 5.0-19.0 [facility] Comment on above: Performed By: #### 5 [id number], 2212696067, 61440441, 6801016090, 0832561, 3849357 ####[facility] (DEFAULT)[address] [place] [address] 35375 AST [Catalytic activity/Vol] 20 U/L Normal 15-41 [facility] Comment on above: Performed By: #### 5 545200904, 7755487287, 21291779, 0416712931, 0308060, 5382787 ####[facility] (DEFAULT)[address] [place] [address] 57585 Bili Total 0.6 mg/dL Normal 0.3-1.2 [facility] Comment on above: Performed By: #### 5 055896055, 5095691727, 76216332, 7624546733, 2209732, 3854962 ####[facility] (DEFAULT)[address] [place] [address] 25194 Calcium [Mass/Vol] 9.5 mg/dL Normal 8.9-10.3 [facility] Comment on above: Performed By: #### 5 [id number], 3593271497, 73790604, 1101886389, 6256990, 1892131 ####[facility] (DEFAULT)[address] [place] [address] 45666 Chloride [Moles/Vol] 104 mmol/L Normal 101-111 [facility] Comment on above: Performed By: #### 5 439659376, 1621222453, 53172048, 2048492241, 9433173, 7243454 ####[facility] (DEFAULT)[address] [place] [address] 42123 CO2 [Moles/Vol] 19 mmol/L Low 21-32 [facility] Comment on above: Performed By: #### 5 976958212, 9189108986, 09612170, 4581601955, 8372686, 4025681 ####[facility] (DEFAULT)[address] [place] [address] 49522 Creatinine [Mass/Vol] 1.68 mg/dL High 0.90-1.30 [facility] Comment on above: Performed By: #### 5 125051010, 5109258235, 86260876, 7245213110, 6324921, 1107828 ####[facility] (DEFAULT)[address] [place] [address] 83516 Globulin (S) [Mass/Vol] 3.9 g/dL Normal 1.5-4.3 [facility] Comment on above: Performed By: #### 5 [id number], 1103215202, 80236598, 8214025174, 1283252, 1047111 ####[facility] (DEFAULT)[address] [place] [address] 47938 Glucose [Mass/Vol] 93.0 mg/dL Normal 74.0-118.0 [facility] Comment on above: Performed By: #### 5 158212107, 2472728540, 14239276, 6428640291, 1264834, 6803136 ####[facility] (DEFAULT)[address] [place] [address] 33429 Osmolality 304 mOsm/L Invalid Interpretation Code [facility] Comment on above: Performed By: #### 5 [id number], 3896156510, 29218139, 6139248002, 3014644, 7133576 ####[facility] (DEFAULT)[address] [place] [address] 13117 Potassium [Moles/Vol] 5.7 mmol/L High 3.6-5.1 [facility] Comment on above: Performed By: #### 5 [id number], 3528099107, 27255618, 2395705835, 9842058, 6421333 ####[facility] (DEFAULT)[address] [place] [address] 28857 Protein [Mass/Vol] 7.9 g/dL Normal 6.5-8.1 [facility] Comment on above: Performed By: #### 5 413636674, 3845039270, 83453343, 7072064330, 5684598, 5216993 ####[facility] (DEFAULT)[address] [place] [address] 64283 Sodium [Moles/Vol] 136.0 mmol/L Normal 136.0-144.0 [facility] Comment on above: Performed By: #### 5 198981822, 3851659463, 23309541, 5996676089, 4212264, 0101976 ####[facility] (DEFAULT)[address] [place] [address] 56773 Urea nitrogen/Creatinine [Mass ratio] 61.0 mg/mg High 4.6-16.2 [facility] Comment on above: Performed By: #### 5 [id number], 9035233907, 37219338, 4967232382, 4346550, 7822356 ####[facility] (DEFAULT)[address] [place] [address] 75404 ED Note-Nursingon 07-08-2022 ED Note-Nursing Dr. Choudhary placed IV in the Lt. hand after multiple attempts from multiple nurses. Normal [facility] ED Pre-Arrival Noteon 2021 ED Pre-Arrival Note Normal [facility] Lactic Acidon 07-08-2022 Lactic Acid 8.2 mg/dL Normal 4.5-19.8 [facility] Comment on above: Performed By: #### 2 [id number] ####[facility] (DEFAULT)[address] [place] [address] 78999 Magnesiumon 07-08-2022 Magnesium [Mass/Vol] 2.31 mg/dL Normal 1.80-2.50 [facility] Comment on above: Performed By: #### 5 [id number], 6426737816, 18340824, 3691114714, 6602535, 7151899 ####[facility] (DEFAULT)[address] [place] [address] 97499 POCT Glucose Levelon 022 Glucose [Mass/Vol] 92 mg/dL Normal 74-118 [facility] Comment on above: Performed By: #### 4 [id number] ####[facility] (DEFAULT)[address] [place] [address] 82639 Glucose [Mass/Vol] 80 mg/dL Normal 74-118 [facility] Comment on above: Performed By: #### 4 [id number] ####[facility] (DEFAULT)[address] [place] [address] Glucose [Mass/Vol] 72 mg/dL Low 74-118 [facility] Comment on above: Performed By: #### 4 [id number] ####[facility] (DEFAULT)[address] [place] [address] SARS-CoV-2 (COVID-19) PCRon 07-08-2022 Employed in healthcare? No Invalid Interpretation Code [facility] Comment on above: Performed By: #### 6 [id number] ####[facility] (DEFAULT)[address] [place] [address] Group care resident? No Invalid Interpretation Code [facility] Comment on above: Performed By: #### 6 [id number] ####[facility] (DEFAULT)[address] [place] [address] In ICU? No Invalid Interpretation Code [facility] Comment on above: Performed By: #### 6 [id number] ####[facility] (DEFAULT)[address] [place] [address] status? Not Invalid Interpretation Code [facility] Comment on above: Performed By: #### 6 [id number] ####[facility] (DEFAULT)[address] [place] [address] SARS-CoV-2 (COVID-19) RNA MANSI+probe Ql (Unsp spec) Not detected Normal Not Detected [facility] Comment on above: Result Comment: Perf ormed by PCR methodology. Performed By: #### 6 [id number] ####[facility] (DEFAULT)[address] [place] [address] SARS-CoV-2 (COVID-19) RNA MANSI+probe Ql (Unsp spec) No Invalid Interpretation Code [facility] Comment on above: Performed By: #### 6 [id number] ####[facility] (DEFAULT)[address] [place] [address] Symptomatic as defined by CDC? No Invalid Interpretation Code [facility] Comment on above: Performed By: #### 6 [id number] ####[facility] (DEFAULT)[address] [place] [address] TnI HSon 07-08-2022 Troponin I High Sensitivity 11 pg/mL Normal <=20 [facility] Comment on above: Result Comment: Male Baseline Delta 1Hr (Note pg/mL=ng/L) <20pg/mL 50-60% >20pg/mL 20%Female Baseline Delta 1Hr <15pg/mL 50-60% >15pg/mL 20%Other Baseline Delta 1Hr <18ng/mL 50-60% >18ng/mL 20%([employer] [employer] Guidelines May 2018) Performed By: #### 5 [id number], 4936324842, 55624804, 9841480311, 7064019, 4098351 ####[facility] (DEFAULT)[address] [place] [address] UA [id number] 07-08-2022 UA Amorph. [facility] Comment on above: Order Comment: Urina lysis Microscopic order added on by [employer] Rules system. Performed By: #### 1 [id number], 8962863, 87350993 ####[facility] (DEFAULT)[address] [place] [address] UA Bacteria 3+ [facility] Comment on above: Order Comment: Urina lysis Microscopic order added on by [employer] system. Performed By: #### 1 [id number], 6665980, 48504409 ####[facility] (DEFAULT)[address] [place] [address] UA RBC 0-2 [facility] Comment on above: Order Comment: Urina lysis Microscopic order added on by [employer] system. Performed By: #### 1 [id number], 8497390, 30849840 ####[facility] (DEFAULT)[address] [place] [address] UA Squam Epi Few [facility] Comment on above: Order Comment: Urina lysis Microscopic order added on by [employer] Rules system. Performed By: #### 1 [id number], 0620388, 40117584 ####[facility] (DEFAULT)[address] [place] [address] 59137 UA WBC 10-15 Normal [facility] Comment on above: Order Comment: Urina lysis Microscopic order added on by [employer] system. Performed By: #### 1 [id number], 7772915, 68150990 ####[facility] (DEFAULT)[address] [place] [address] 41774 UA w Culture if Ind Standard on 07-08-2022 Breakpoint UA [facility] Comment on above: Performed By: #### 1 [id number], 5388583, 85879416 ####[facility] (DEFAULT)[address] [place] [address] Color (U) Yellow [facility] Comment on above: Performed By: #### 1 [id number], 9468627, 66381204 ####[facility] (DEFAULT)[address] [place] [address] Culture? Indicated Invalid Interpretation Code [facility] Comment on above: Result Comment: Resu lt created by rule GL_MAGR_ADD_UA_CULT Result created by rule GL_MAGR_ADD_UA_CULT Result created by rule GL_MAGR_ADD_UA_CULT1 Result created by rule GL_MAGR_ADD_UA_CULT Performed By: #### 1 [id number], 3181834, 02716590 ####[facility] (DEFAULT)[address] [place] [address] 96242 Glucose (U) [Mass/Vol] Negative [facility] Comment on above: Performed By: #### 1 [id number], 3048294, 88255726 ####[facility] (DEFAULT)[address] [place] [address] 13759 Ketones Ql (U) TRACE [facility] Comment on above: Performed By: #### 1 [id number], 4700204, 09449432 ####[facility] (DEFAULT)[address] [place] [address] 77529 Micro? Indicated Normal [facility] Comment on above: Result Comment: Resu lt created by rule GL_MAGR_ADD_UA_MICRO Performed By: #### 1 [id number], 6328974, 84598556 ####[facility] (DEFAULT)[address] [place] [address] 88663 UA Bilirubin Negative Normal [facility] Comment on above: Performed By: #### 1 [id number], 7476682, 61173651 ####[facility] (DEFAULT)[address] [place] [address] 63854 UA Blood Negative Normal NEGATIVE [facility] Comment on above: Performed By: #### 1 [id number], 3390801, 92143926 ####[facility] (DEFAULT)[address] [place] [address] 87541 UA Clarity CLEAR Normal CLEAR [facility] Comment on above: Performed By: #### 1 [id number], 0636965, 03526947 ####[facility] (DEFAULT)[address] [place] [address] 66139 UA Leuk Est SMALL Abnormal NEGATIVE [facility] Comment on above: Performed By: #### 1 [id number], 8056575, 02910127 ####[facility] (DEFAULT)[address] [place] [address] 90138 UA Nitrite Positive Abnormal NEGATIVE [facility] Comment on above: Performed By: #### 1 055825451, 1011836, 66909572 ####[facility] (DEFAULT)[address] [place] [address] 74902 UA pH 6.0 Normal 5-8 [facility] Comment on above: Performed By: #### 1 [id number], 5860339, 19852679 ####[facility] (DEFAULT)[address] [place] [address] 34413 UA Protein TRACE Abnormal NEGATIVE [facility] Comment on above: Performed By: #### 1 [id number], 0041286, 60166620 ####[facility] (DEFAULT)[address] [place] [address] 77262 UA Spec Grav 1.015 Normal 1.001-1.035 [facility] Comment on above: Performed By: #### 1 [id number], 9927885, 35168160 ####[facility] (DEFAULT)[address] [place] [address] UA Urobilinogen 0.2 mg/dL Normal 0.2-1.0 [facility] Comment on above: Performed By: #### 1 [id number], 0819142, 47863086 ####[facility] (DEFAULT)[address] [place] [address] Urine Source Clean Catch [facility] [facility] Comment on above: Performed By: #### 1 [id number] ####[facility] (DEFAULT)[address] [place] [id number] XR Chest 2 Viewson 2 XR Chest 2 Views [facility] Progress Note - Nurseon 06-06 Progress Note - Nurse [facility] Coding Summaryon 06-11-2022 Coding Summary [facility] Provider Orderson 06-06-2022 Provider Orders [id number] [facility] Rad - MRI Report [id number]#[id number] [facility] MRI Spine Lumbar w/o Contras ton 06-04-2022 MRI Spine Lumbar w/o Contrast [facility] Coding Summaryon 05-07-2022 Coding Summary [facility] Cult,Bloodon 09-13-2019 Cult,Blood Specimen Description .BLOOD Special Requests LT HAND 17ML Culture NO GROWTH 6 DAYS Report Status FINAL 09/13/2019 [facility] Comment on above: Performed By: #### C DP, LACTIC, CRP, CMPX, BH #### [facility] [address] [place] [address] Electrician'S Assistant: Sony Aguilar MD Cult,Blood Specimen Description .BLOOD Special Requests RT HAND 15ML Culture NO GROWTH 6 DAYS Report Status FINAL 09/13/2019 [facility] Comment on above: Performed By: #### C DP, LACTIC, CRP, CMPX, BH #### [facility] [place], [place] [id number] Electrician'S Assistant: Sony Aguilar MD Cult,Tissueon 09-11-2019 Cult,Tissue Specimen Description .TISSUE LEFT .GROIN Special Requests NOT REPORTED Direct Exam NO NEUTROPHILS SEEN MIXED BACTERIAL MORPHOTYPES SEEN ON GRAM STAIN. Culture NORMAL TAWNYA MIXED ANAEROBIC TAWNYA Report Status FINAL 09/11/2019 [facility] Comment on above: Performed By: #### C DP, LACTIC, CRP, CMPX, BH #### [facility] [place], [place] [id number] Electrician'S Assistant: Sony Aguilar MD Cult,Aerobe/Anaerobeon 09-10 Cult,Aerobe/Anaerobe Specimen Descriptio n .GROIN SWAB LEFT Special Requests NOT REPORTED Direct Exam RARE NEUTROPHILS MIXED BACTERIAL MORPHOTYPES SEEN ON GRAM STAIN. Culture NORMAL SKIN TAWNYA MIXED ANAEROBIC TAWNYA Report Status FINAL 09/10/2019 [facility] Comment on above: Performed By: #### C DP, LACTIC, CRP, CMPX, BH #### [facility] [address] [place] [address] [id number] Electrician'S Assistant: Sony Aguilar MD POC Glucose Fingerstickon Glucose [Mass/Vol] 238 mg/dL High 75 - 110 mg/dL [place], [place] Interpretation and review of laboratory results Abnormal [place] Glucose [Mass/Vol] 125 mg/dL High 75 - 110 mg/dL [place] Interpretation and review of laboratory results Abnormal [place] Basic Metab w/rfx MGon 09-09 (cont.) [facility] Comment on above: Result Comment: Aver age GFR for 60-69 years old: 85 mL/min/1.73sq m Chronic Kidney Disease: <60 mL/min/1.73sq m Kidney failure: <15 mL/min/1.73sq m eGFR calculated using average adult body mass. Additional eGFR calculator available at: http://www.bookjam.com/multiple_crcl_2012.htm Performed By: #### C DP, LACTIC, CRP, CMPX, #### [address] [address] Electrician'S Assistant: Sony Aguilar MD Anion gap [Moles/Vol] 12 mmol/L Normal 9-17 [facility] Comment on above: Performed By: #### C DP, LACTIC, CRP, CMPX, #### [address] [address] Electrician'S Assistant: Sony Aguilar MD Calcium [Mass/Vol] 7.9 mg/dL Low 8.6-10.[address] [facility] Comment on above: Performed By: #### C DP, LACTIC, CRP, CMPX, #### [address] [address] Electrician'S Assistant: Sony Aguilar MD Chloride [Moles/Vol] 101 mmol/L Normal 98-107 [facility] Comment on above: Performed By: #### C DP, LACTIC, CRP, CMPX, #### [address] [address] Electrician'S Assistant: Sony Aguilar MD CO2 [Moles/Vol] 24 mmol/L Normal 20-[address] [facility] Comment on above: Performed By: #### C DP, LACTIC, CRP, CMPX, #### [address] [address] Electrician'S Assistant: Sony Aguilar MD Creatinine [Mass/Vol] 0.84 mg/dL Normal 0.70-1.20 [facility] Comment on above: Performed By: #### C DP, LACTIC, CRP, CMPX, #### [facility] [address] [place] [address] Electrician'S Assistant: Sony Aguilar MD GFR, Amer >60 Normal >60 [facility] Comment on above: Performed By: #### C DP, LACTIC, CRP, CMPX, #### [facility] [address] [place] [address] Electrician'S Assistant: Sony Aguilar MD GFR,non Amer >60 Normal >60 [facility] Comment on above: Performed By: #### C DP, LACTIC, CRP, CMPX, #### [facility] [address] [place] [address] Electrician'S Assistant: Sony Aguilar MD Glucose [Mass/Vol] 181 mg/dL High 70-[address] [facility] Comment on above: Performed By: #### C DP, LACTIC, CRP, CMPX, #### [facility] [address] [place] [address] Electrician'S Assistant: Sony Aguilar MD Potassium [Moles/Vol] 4.1 mmol/L Normal 3.7-5.3 [facility] Comment on above: Performed By: #### C DP, LACTIC, CRP, CMPX, #### [facility] [address] [place] [address] Electrician'S Assistant: Sony Aguilar MD Sodium [Moles/Vol] 137 mmol/L Normal 135-[address] [facility] Comment on above: Performed By: #### C DP, LACTIC, CRP, CMPX, #### [facility] [address] [place] [address] Electrician'S Assistant: Sony Aguilar MD Urea nitrogen [Mass/Vol] 22 mg/dL Normal 8-[address] [facility] Comment on above: Performed By: #### C DP, LACTIC, CRP, CMPX, #### [facility] [address] [place] [address] Electrician'S Assistant: Sony Aguilar MD BUN/CRE Ratio NOT REPORTED Normal 9-[address] [facility] Comment on above: Performed By: #### C DP, LACTIC, CRP, CMPX, #### [facility] [address] [place] [address] Electrician'S Assistant: Sony Aguilar MD Staging: NOT REPORTED Normal [facility] Comment on above: Performed By: #### C DP, LACTIC, CRP, CMPX, #### [facility] [address] [place], [place] [id number] Electrician'S Assistant: Sony Aguilar MD Basic Metabolic Panel w/ Ref eduard to MGon 09-09-2019 Anion gap [Moles/Vol] 12 mmol/L 9 - 17 mmol/L [place] Bun/Cre Ratio NOT REPORTED [place], [place] Calcium [Mass/Vol] 7.9 mg/dL Low 8.6 - 10. 4 mg/dL [place] Chloride [Moles/Vol] 101 mmol/L 98 - 10 7 mmol/L [place] CO2 [Moles/Vol] 24 mmol/L 20 - 31 mmol/L [place] Creatinine [Mass/Vol] 0.84 mg/dL 0.7 - 1.2 mg/dL [place] GFR >60 >60 mL/min [place], [place] GFR Non- >60 >60 mL/min [place] GFR/1.73 sq M predicted among non-blacks MDRD (S/P/Bld) [Vol rate/Area] [place] Comment on above: Average GFR for 60-6 9 years old: 85 mL/min/1.73sq m Chronic Kidney Disease: <60 mL/min/1.73sq m Kidney failure: <15 mL/min/1.73sq m eGFR calculated using average adult body mass. Additional eGFR calculator available at: http://www.bookjam.nexTune/multiple_crcl_2012.htm GFR/1.73 sq M predicted among non-blacks MDRD [...] % [place] Segs Absolute 5.94 [place], [place] WBC (Bld) [#/Vol] 0.0 10*3/uL 0.0 per 10 0 WBC [place] WBC (Bld) [#/Vol] 8.6 10*3/uL [place] WBC Morphology NOT REPORTED [place], [place] CBC with Diffon 09-09-2019 Abs. Basophil 0.04 k/uL Normal 0.00-0.[address] [facility] Comment on above: Performed By: #### C DP, LACTIC, CRP, CMPX, #### [place] [id number] Electrician'S Assistant: Sony Aguilar MD Abs.Imm.Granulocyte 0.05 k/uL Normal 0.00-0.[address] [facility] Comment on above: Performed By: #### C DP, LACTIC, CRP, CMPX, #### [facility] [address] [place] [address] Electrician'S Assistant: Sony Aguilar MD Abs.Neutrophil (Seg) 5.94 k/uL Normal 1.50-8.10 [facility] Comment on above: Performed By: #### C DP, LACTIC, CRP, CMPX, #### [address] [address] Electrician'S Assistant: Sony Aguilar MD Basophils/100 WBC (Bld) 1 % Normal 0-[address] [facility] Comment on above: Performed By: #### C DP, LACTIC, CRP, CMPX, #### [address] [address] Electrician'S Assistant: Sony Aguilar MD Eosinophils (Bld) [#/Vol] 0.29 10*3/uL Normal 0.00-0.[address] [facility] Comment on above: Performed By: #### C DP, LACTIC, CRP, CMPX, #### [place] [address] Electrician'S Assistant: Sony Aguilar MD Eosinophils/100 WBC (Bld) 3 % Normal 1-[address] [facility] Comment on above: Performed By: #### C DP, LACTIC, CRP, CMPX, #### [place] [address] Electrician'S Assistant: Sony Aguilar MD Erythrocyte distribution width (RBC) [Ratio] 12.1 % Normal 11.8-14.[address] [facility] Comment on above: Performed By: #### C DP, LACTIC, CRP, CMPX, #### [place] [address] Electrician'S Assistant: Sony Aguilar MD Hematocrit (Bld) [Volume fraction] 34.8 % Low 40.7-50.[address] [facility] Comment on above: Performed By: #### C DP, LACTIC, CRP, CMPX, #### [address] [address] Electrician'S Assistant: Sony Aguilar MD Hemoglobin (Bld) [Mass/Vol] 11.7 g/dL Low 13.0-17.[address] [facility] Comment on above: Performed By: #### C DP, LACTIC, CRP, CMPX, #### [address] [address] Electrician'S Assistant: Sony Aguilar MD Immature granulocytes (Bld) [#/Vol] 1 % High [address] [facility] Comment on above: Performed By: #### C DP, LACTIC, CRP, CMPX, #### [address] [address] Electrician'S Assistant: Sony Aguilar MD Lymphocytes (Bld) [#/Vol] 1.49 10*3/uL Normal 1.10-3.[address] [facility] Comment on above: Performed By: #### C DP, LACTIC, CRP, CMPX, #### [address] [address] Electrician'S Assistant: Sony Aguilar MD Lymphocytes/100 WBC (Bld) 17 % Low 24-[address] [facility] Comment on above: Performed By: #### C DP, LACTIC, CRP, CMPX, #### [address] [address] Electrician'S Assistant: Sony Aguilar MD MCH (RBC) [Entitic mass] 29.6 pg Normal 25.2-33.[address] [facility] Comment on above: Performed By: #### C DP, LACTIC, CRP, CMPX, #### [address] [address] Electrician'S Assistant: Sony Aguilar MD MCHC (RBC) [Mass/Vol] 33.6 g/dL Normal 28.4-34.8 [facility] Comment on above: Performed By: #### C DP, LACTIC, CRP, CMPX, #### [address] [address] Electrician'S Assistant: Sony Aguilar MD MCV (RBC) [Entitic vol] 88.1 fL Normal 82.6-102.[address] [facility] Comment on above: Performed By: #### C DP, LACTIC, CRP, CMPX, #### [address] [address] Electrician'S Assistant: Sony Aguilar MD Monocytes (Bld) [#/Vol] 0.81 10*3/uL Normal 0.10-1.[address] [facility] Comment on above: Performed By: #### C DP, LACTIC, CRP, CMPX, #### [address] [address] Electrician'S Assistant: Sony Aguilar MD Monocytes/100 WBC (Bld) 9 % Normal 3-[address] [facility] Comment on above: Performed By: #### C DP, LACTIC, CRP, CMPX, #### [address] [address] Electrician'S Assistant: Sony Aguilar MD Neutrophil (Seg) 69 % High 36-65 [facility] Comment on above: Performed By: #### C DP, LACTIC, CRP, CMPX, #### [address] [address] Electrician'S Assistant: Sony Aguilar MD NRBC Automated 0.0 per 100 WBC Normal 0.[address] [facility] Comment on above: Performed By: #### C DP, LACTIC, CRP, CMPX, #### [address] [address] Electrician'S Assistant: Sony Aguilar MD Platelet mean volume (Bld) [Entitic vol] 11.7 fL Normal 8.1-13.[address] [facility] Comment on above: Performed By: #### C DP, LACTIC, CRP, CMPX, #### [address] [address] Electrician'S Assistant: Sony Aguilar MD Platelets (Bld) [#/Vol] 248 10*3/uL Normal 138-[address] [facility] Comment on above: Performed By: #### C DP, LACTIC, CRP, CMPX, #### [address] [address] Electrician'S Assistant: Sony Aguilar MD RBC (Bld) [#/Vol] 3.95 10*6/uL Low 4.21-5.[address] [facility] Comment on above: Performed By: #### C DP, LACTIC, CRP, CMPX, #### [address] [address] Electrician'S Assistant: Sony Aguilar MD WBC (Bld) [#/Vol] 8.6 10*3/uL Normal 3.5-11.[address] [facility] Comment on above: Performed By: #### C DP, LACTIC, CRP, CMPX, #### [address] [address] Electrician'S Assistant: Sony Aguilar MD Auto Diff Performed NOT REPORTED Normal [facility] Comment on above: Performed By: #### C DP, LACTIC, CRP, CMPX, #### [address] [address] Electrician'S Assistant: Sony Aguilar MD Platelets (Bld) [#/Vol] NOT REPORTED Normal [facility] Comment on above: Performed By: #### C DP, LACTIC, CRP, CMPX, #### [address] [address] Electrician'S Assistant: Sony Aguilar MD RBC morphology finding Nom (Bld) NOT REPORTED Normal [facility] Comment on above: Performed By: #### C DP, LACTIC, CRP, CMPX, #### [address] [address] Electrician'S Assistant: Sony Aguilar MD WBC Morphology NOT REPORTED Normal [facility] Comment on above: Performed By: #### C DP, LACTIC, CRP, CMPX, #### [facility] [place], [place] [phone] Electrician'S Assistant: Sony Aguilar MD POC Glucose Fingerstickon [...] Basic Metab w/rfx MGon 09-08 (cont.) Normal [facility] Comment on above: Result Comment: Aver age GFR for 60-69 years old: 85 mL/min/1.73sq m Chronic Kidney Disease: <60 mL/min/1.73sq m Kidney failure: <15 mL/min/1.73sq m eGFR calculated using average adult body mass. Additional eGFR calculator available at: http://www.bookjam.nexTune/multiple_crcl_2012.htm Performed By: #### C DP, LACTIC, CRP, CMPX, #### [employer] [address] [place] [address] Electrician'S Assistant: Sony Aguilar MD Anion gap [Moles/Vol] 13 mmol/L Normal 9-17 [facility] Comment on above: Performed By: #### C DP, LACTIC, CRP, CMPX, BH #### [facility] [address] [place] [address] Electrician'S Assistant: Sony Aguilar MD Calcium [Mass/Vol] 7.4 mg/dL Low 8.6-10.[address] [facility] Comment on above: Performed By: #### C DP, LACTIC, CRP, CMPX, #### [facility] [address] [place] [address] Electrician'S Assistant: Sony Aguilar MD Chloride [Moles/Vol] 105 mmol/L Normal 98-107 [facility] Comment on above: Performed By: #### C DP, LACTIC, CRP, CMPX, #### [facility] [address] [place] [address] Electrician'S Assistant: Sony Aguilar MD CO2 [Moles/Vol] 19 mmol/L Low 20-[address] [facility] Comment on above: Performed By: #### C DP, LACTIC, CRP, CMPX, #### [facility] [address] [place] [address] Electrician'S Assistant: Sony Aguilar MD Creatinine [Mass/Vol] 0.99 mg/dL Normal 0.70-1.20 [facility] Comment on above: Performed By: #### C DP, LACTIC, CRP, CMPX, #### [facility] [address] [place] [address] Electrician'S Assistant: Sony Aguilar MD GFR, Amer >60 Normal >60 [facility] Comment on above: Performed By: #### C DP, LACTIC, CRP, CMPX, #### [facility] [address] [place] [address] Electrician'S Assistant: Sony Aguilar MD GFR,non Amer >60 Normal >60 [facility] Comment on above: Performed By: #### C DP, LACTIC, CRP, CMPX, #### [facility] [address] [place] [address] Electrician'S Assistant: Sony Aguilar MD Glucose [Mass/Vol] 111 mg/dL High 70-[address] [facility] Comment on above: Performed By: #### C DP, LACTIC, CRP, CMPX, #### [address] [address] Electrician'S Assistant: Sony Aguilar MD Potassium [Moles/Vol] 3.9 mmol/L Normal 3.7-5.3 [facility] Comment on above: Performed By: #### C DP, LACTIC, CRP, CMPX, #### [address] [address] Electrician'S Assistant: Sony Aguilar MD Sodium [Moles/Vol] 137 mmol/L Normal 135-[address] [facility] Comment on above: Performed By: #### C DP, LACTIC, CRP, CMPX, #### [address] [address] Electrician'S Assistant: Sony Aguilar MD Urea nitrogen [Mass/Vol] 29 mg/dL High 8-[address] [facility] Comment on above: Performed By: #### C DP, LACTIC, CRP, CMPX, #### [address] [address] Electrician'S Assistant: Sony Aguilar MD BUN/CRE Ratio NOT REPORTED Normal 9-[address] [facility] Comment on above: Performed By: #### C DP, LACTIC, CRP, CMPX, #### [address] [address] Electrician'S Assistant: Sony Aguilar MD Staging: NOT REPORTED Normal [facility] Comment on above: Performed By: #### C DP, LACTIC, CRP, CMPX, #### [address] [address] Electrician'S Assistant: Sony Aguilar MD Basic Metabolic Panel w/ Ref eduard to MGon 09-08-2019 Anion gap [Moles/Vol] 13 mmol/L 9 - 17 mmol/L [place] Bun/Cre Ratio NOT REPORTED [place] Calcium [Mass/Vol] 7.4 mg/dL Low 8.6 - 10. 4 mg/dL [place] Chloride [Moles/Vol] 105 mmol/L 98 - 10 7 mmol/L [place] CO2 [Moles/Vol] 19 mmol/L Low 20 - 31 mmol/L [place] Creatinine [Mass/Vol] 0.99 mg/dL 0.7 - 1.2 mg/dL [place] GFR >60 >60 mL/min [place] GFR Non- >60 >60 mL/min [place] GFR/1.73 sq M predicted among non-blacks MDRD (S/P/Bld) [Vol rate/Area] [place] Comment on above: Average GFR for 60-6 9 years old: 85 mL/min/1.73sq m Chronic Kidney Disease: <60 mL/min/1.73sq m Kidney failure: <15 mL/min/1.73sq m eGFR calculated using average adult body mass. Additional eGFR calculator available at: http://www.[employer]/multiple_crcl_2012.htm GFR/1.73 sq M predicted among non-blacks MDRD [...] % [place] Segs Absolute 6.80 [place] WBC (Bld) [#/Vol] 9.6 10*3/uL [place] WBC (Bld) [#/Vol] 0.0 10*3/uL 0.0 per 10 0 WBC [place] WBC Morphology NOT REPORTED [place], [place] CBC with Diffon 09-08-2019 Abs. Basophil <0.03 Normal 0.00-0.[address] [facility] Comment on above: Performed By: #### C DP, LACTIC, CRP, CMPX, #### [address] [address] Electrician'S Assistant: Sony Aguilar MD Abs.Imm.Granulocyte 0.05 k/uL Normal 0.00-0.[address] [facility] Comment on above: Performed By: #### C DP, LACTIC, CRP, CMPX, #### [address] [address] Electrician'S Assistant: Sony Aguilar MD Abs.Neutrophil (Seg) 6.80 k/uL Normal 1.50-8.10 [facility] Comment on above: Performed By: #### C DP, LACTIC, CRP, CMPX, #### [address] [address] Electrician'S Assistant: Sony Aguilar MD Basophils/100 WBC (Bld) 0 % Normal 0-[address] [facility] Comment on above: Performed By: #### C DP, LACTIC, CRP, CMPX, #### [address] [address] Electrician'S Assistant: Sony Aguilar MD Eosinophils (Bld) [#/Vol] 0.15 10*3/uL Normal 0.00-0.[address] [facility] Comment on above: Performed By: #### C DP, LACTIC, CRP, CMPX, #### [address] [address] Electrician'S Assistant: Sony Aguilar MD Eosinophils/100 WBC (Bld) 2 % Normal 1-[address] [facility] Comment on above: Performed By: #### C DP, LACTIC, CRP, CMPX, #### [address] [address] Electrician'S Assistant: Sony Aguilar MD Erythrocyte distribution width (RBC) [Ratio] 12.0 % Normal 11.8-14.[address] [facility] Comment on above: Performed By: #### C DP, LACTIC, CRP, CMPX, #### [address] [address] Electrician'S Assistant: Sony Aguilar MD Hematocrit (Bld) [Volume fraction] 34.8 % Low 40.7-50.[address] [facility] Comment on above: Performed By: #### C DP, LACTIC, CRP, CMPX, #### [address] [address] Electrician'S Assistant: Sony Aguilar MD Hemoglobin (Bld) [Mass/Vol] 11.0 g/dL Low 13.0-17.[address] [facility] Comment on above: Performed By: #### C DP, LACTIC, CRP, CMPX, #### [address] [address] Electrician'S Assistant: Sony Aguilar MD Immature granulocytes (Bld) [#/Vol] 1 % High [address] [facility] Comment on above: Performed By: #### C DP, LACTIC, CRP, CMPX, #### [address] [address] Electrician'S Assistant: Sony Aguilar MD Lymphocytes (Bld) [#/Vol] 1.79 10*3/uL Normal 1.10-3.[address] [facility] Comment on above: Performed By: #### C DP, LACTIC, CRP, CMPX, #### [address] [address] Electrician'S Assistant: Sony Aguilar MD Lymphocytes/100 WBC (Bld) 19 % Low 24-[address] [facility] Comment on above: Performed By: #### C DP, LACTIC, CRP, CMPX, #### [place] [address] Electrician'S Assistant: Sony Aguilar MD MCH (RBC) [Entitic mass] 29.4 pg Normal 25.2-33.[address] [facility] Comment on above: Performed By: #### C DP, LACTIC, CRP, CMPX, #### [place] [address] Electrician'S Assistant: Sony Aguilar MD MCHC (RBC) [Mass/Vol] 31.6 g/dL Normal 28.4-34.8 [facility] Comment on above: Performed By: #### C DP, LACTIC, CRP, CMPX, #### [place] [address] Electrician'S Assistant: Sony Aguilar MD MCV (RBC) [Entitic vol] 93.0 fL Normal 82.6-102.[address] [facility] Comment on above: Performed By: #### C DP, LACTIC, CRP, CMPX, #### [address] [address] Electrician'S Assistant: Sony Aguilar MD Monocytes (Bld) [#/Vol] 0.82 10*3/uL Normal 0.10-1.[address] [facility] Comment on above: Performed By: #### C DP, LACTIC, CRP, CMPX, #### [address] [address] Electrician'S Assistant: Sony Aguilar MD Monocytes/100 WBC (Bld) 9 % Normal 3-[address] [facility] Comment on above: Performed By: #### C DP, LACTIC, CRP, CMPX, #### [address] [address] Electrician'S Assistant: Sony Aguilar MD Neutrophil (Seg) 71 % High 36-65 [facility] Comment on above: Performed By: #### C DP, LACTIC, CRP, CMPX, #### [address] [address] Electrician'S Assistant: Sony Aguilar MD NRBC Automated 0.0 per 100 WBC Normal 0.[address] [facility] Comment on above: Performed By: #### C DP, LACTIC, CRP, CMPX, #### [address] [address] Electrician'S Assistant: Sony Aguilar MD Platelet mean volume (Bld) [Entitic vol] 12.0 fL Normal 8.1-13.[address] [facility] Comment on above: Performed By: #### C DP, LACTIC, CRP, CMPX, #### [address] [address] Electrician'S Assistant: Sony Aguilar MD Platelets (Bld) [#/Vol] 210 10*3/uL Normal 138-[address] [facility] Comment on above: Performed By: #### C DP, LACTIC, CRP, CMPX, #### [address] [address] Electrician'S Assistant: Sony Aguilar MD RBC (Bld) [#/Vol] 3.74 10*6/uL Low 4.21-5.[address] [facility] Comment on above: Performed By: #### C DP, LACTIC, CRP, CMPX, #### [address] [address] Electrician'S Assistant: Sony Aguilar MD WBC (Bld) [#/Vol] 9.6 10*3/uL Normal 3.5-11.[address] [facility] Comment on above: Performed By: #### C DP, LACTIC, CRP, CMPX, #### [address] [address] Electrician'S Assistant: Sony Aguilar MD Auto Diff Performed NOT REPORTED Normal [facility] Comment on above: Performed By: #### C DP, LACTIC, CRP, CMPX, #### [address] [address] Electrician'S Assistant: Sony Aguilar MD Platelets (Bld) [#/Vol] NOT REPORTED Normal [facility] Comment on above: Performed By: #### C DP, LACTIC, CRP, CMPX, #### [address] [address] Electrician'S Assistant: Sony Aguilar MD RBC morphology finding Nom (Bld) NOT REPORTED Normal [facility] Comment on above: Performed By: #### C DP, LACTIC, CRP, CMPX, #### [address] [address] Electrician'S Assistant: Sony Aguilar MD WBC Morphology NOT REPORTED Normal [facility] Comment on above: Performed By: #### C DP, LACTIC, CRP, CMPX, #### [address] [address] Electrician'S Assistant: Sony Aguilar MD Cult,Urineon 09-08-2019 Cult,Urine Specimen Description .URINE,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 Culture NO SIGNIFICANT GROWTH Report Status FINAL 09/08/[address] [facility] Comment on above: Performed By: #### C DP, LACTIC, CRP, CMPX, #### [address] [address] Electrician'S Assistant: Sony Aguilar MD Hemoglobin A1Con 09-08-2019 HbA1c (Bld) [Mass fraction] 10.0 % High 4.0-6.[address] [facility] Comment on above: Performed By: #### C DP, GLYHGB #### [facility] [address] [place], [place] [id number] Electrician'S Assistant: Sony Aguilar MD HbA1c (Bld) [Mass fraction] 240 mg/dL Normal [facility] Comment on above: Result Comment: The ADA and AACC recommend providing the estimated average glucose result to permit better patient understanding of their HBA1c result. Performed By: #### C DP, GLYHGB #### [facility] [address] [place], [place] [id number] Electrician'S Assistant: Sony Aguilar MD Glucose [Mass/Vol] 240 [...] Urine Cultureon 09-08-2019 Culture NO SIGNIFICANT GROWTH [place], [place] Special Requests NOT REPORTED [place], [place] Specimen Description .URINE,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 [place], [place] Basic Metab w/rfx MGon 09-07 (cont.) Normal [facility] Comment on above: Result Comment: Aver age GFR for 60-69 years old: 85 mL/min/1.73sq m Chronic Kidney Disease: <60 mL/min/1.73sq m Kidney failure: <15 mL/min/1.73sq m eGFR calculated using average adult body mass. Additional eGFR calculator available at: http://www.bookjam.nexTune/multiple_crcl_2012.htm Performed By: #### B MPX #### [facility] [place], [place] [id number] Electrician'S Assistant: Sony Aguilar MD Anion gap [Moles/Vol] 12 mmol/L Normal 9-17 [facility] Comment on above: Performed By: #### B MPX #### [facility] [address] [place] [address] Electrician'S Assistant: Sony Aguilar MD Calcium [Mass/Vol] 7.5 mg/dL Low 8.6-10.[address] [facility] Comment on above: Performed By: #### B MPX #### [address] [address] Electrician'S Assistant: Sony Aguilar MD Chloride [Moles/Vol] 99 mmol/L Normal 98-107 [facility] Comment on above: Performed By: #### B MPX #### [address] [address] Electrician'S Assistant: Sony Aguilar MD CO2 [Moles/Vol] 21 mmol/L Normal 20-[address] [facility] Comment on above: Performed By: #### B MPX #### [address] [address] Electrician'S Assistant: Sony Aguilar MD Creatinine [Mass/Vol] 1.12 mg/dL Normal 0.70-1.20 [facility] Comment on above: Performed By: #### B MPX #### [address] [address] Electrician'S Assistant: Sony Aguilar MD GFR, Amer >60 Normal >60 [facility] Comment on above: Performed By: #### B MPX #### [address] [address] Electrician'S Assistant: Sony Aguilar MD GFR,non Amer >60 Normal >60 [facility] Comment on above: Performed By: #### B MPX #### [address] [address] Electrician'S Assistant: Sony Aguilar MD Glucose [Mass/Vol] 225 mg/dL High 70-[address] [facility] Comment on above: Performed By: #### B MPX #### [place] [id number] [place] [address] Electrician'S Assistant: Sony Aguilar MD Potassium [Moles/Vol] 4.4 mmol/L Normal 3.7-5.3 [facility] Comment on above: Performed By: #### B MPX #### [address] [address] Electrician'S Assistant: Sony Aguilar MD Sodium [Moles/Vol] 132 mmol/L Low 135-[address] [facility] Comment on above: Performed By: #### B MPX #### [address] [address] Electrician'S Assistant: Sony Aguilar MD Urea nitrogen [Mass/Vol] 33 mg/dL High 8-[address] [facility] Comment on above: Performed By: #### B MPX #### [address] [address] Electrician'S Assistant: Sony Aguilar MD BUN/CRE Ratio NOT REPORTED Normal - [facility] Comment on above: Performed By: #### B MPX #### [address] [address] Electrician'S Assistant: Sony Aguilar MD Staging: NOT REPORTED Normal [facility] Comment on above: Performed By: #### B MPX #### [address] [address] Electrician'S Assistant: Sony Aguilar MD Basic Metabolic Panel w/ Ref eduard to MGon 09-07-2019 Anion gap [Moles/Vol] 12 mmol/L 9 - 17 mmol/L [place] Bun/Cre Ratio NOT REPORTED [place], [place] Calcium [Mass/Vol] 7.5 mg/dL Low 8.6 - 10. 4 mg/dL [place] Chloride [Moles/Vol] 99 mmol/L 98 - 10 7 mmol/L [place] CO2 [Moles/Vol] 21 mmol/L 20 - 31 mmol/L [place] Creatinine [Mass/Vol] 1.12 mg/dL 0.7 - 1.2 mg/dL [place] GFR >60 >60 mL/min [place] GFR Non- >60 >60 mL/min [place] [...] body mass. Additional eGFR calculator available at: http://www.[employer]/multiple_crcl_2012.htm Glucose [Mass/Vol] 225 mg/dL High 70 - [...] 09-07 Beta Hydroxybutyrate 0.67 mmol/L High 0.02-0.27 [facility] Comment on above: Performed By: #### C DP, LACTIC, CRP, CMPX, BH #### [facility] [address] [place] [address] Electrician'S Assistant: Sony Aguilar MD C-Reactive Proteinon 019 CRP [Mass/Vol] 237.9 mg/L High 0.0-5.[address] [facility] Comment on above: Performed By: #### C DP, LACTIC, CRP, CMPX, BH #### [facility] [address] [place] [address] Electrician'S Assistant: Sony Aguilar MD CBC auto differentialon 12-0 [...] [place] Segs Absolute 11.42 High [place] WBC (Bld) [#/Vol] 0.0 10*3/uL 0.0 per 10 0 WBC [place] WBC (Bld) [#/Vol] 14.6 10*3/uL [place] WBC Morphology NOT REPORTED [place], [place] CBC with Diffon 09-07-2019 Abs. Basophil <0.03 Normal 0.00-0.[address] [facility] Comment on above: Performed By: #### C TREVIN GLYHGB #### [address] [address] Electrician'S Assistant: Sony Aguilar MD Abs.Imm.Granulocyte 0.05 k/uL Normal 0.00-0.[address] [facility] Comment on above: Performed By: #### C TREVIN GLYHGB #### [facility] [address] [place] [address] Electrician'S Assistant: Sony Aguilar MD Abs.Neutrophil (Seg) 11.42 k/uL High 1.50-8.10 [facility] Comment on above: Performed By: #### C TREVIN GLYHGB #### [facility] [address] [place] [address] Electrician'S Assistant: Sony Aguilar MD Basophils/100 WBC (Bld) 0 % Normal 0-[address] [facility] Comment on above: Performed By: #### C DP, GLYHGB #### [address] [address] Electrician'S Assistant: Sony Aguilar MD Eosinophils (Bld) [#/Vol] 0.05 10*3/uL Normal 0.00-0.[address] [facility] Comment on above: Performed By: #### C DP, GLYHGB #### [address] [address] Electrician'S Assistant: Sony Aguilar MD Eosinophils/100 WBC (Bld) 0 % Low 1-[address] [facility] Comment on above: Performed By: #### C DP, GLYHGB #### [address] [address] Electrician'S Assistant: Sony Aguilar MD Erythrocyte distribution width (RBC) [Ratio] 12.0 % Normal 11.8-14.[address] [facility] Comment on above: Performed By: #### C DP, GLYHGB #### [address] [address] Electrician'S Assistant: Sony Aguilar MD Hematocrit (Bld) [Volume fraction] 34.4 % Low 40.7-50.[address] [facility] Comment on above: Performed By: #### C DP, GLYHGB #### [address] [address] Electrician'S Assistant: Sony Aguilar MD Hemoglobin (Bld) [Mass/Vol] 11.6 g/dL Low 13.0-17.[address] [facility] Comment on above: Performed By: #### C DP, GLYHGB #### [address] [address] Electrician'S Assistant: Sony Aguilar MD Immature granulocytes (Bld) [#/Vol] 0 % Normal [address] [facility] Comment on above: Performed By: #### C DP, GLYHGB #### [address] [address] Electrician'S Assistant: Sony Aguilar MD Lymphocytes (Bld) [#/Vol] 1.73 10*3/uL Normal 1.10-3.[address] [facility] Comment on above: Performed By: #### C DP, GLYHGB #### [place] [address] Electrician'S Assistant: Sony Aguilar MD Lymphocytes/100 WBC (Bld) 12 % Low 24-[address] [facility] Comment on above: Performed By: #### C DP, GLYHGB #### [place] [address] Electrician'S Assistant: Sony Aguilar MD MCH (RBC) [Entitic mass] 29.3 pg Normal 25.2-33.[address] [facility] Comment on above: Performed By: #### C DP, GLYHGB #### [place] [address] Electrician'S Assistant: Sony Aguilar MD MCHC (RBC) [Mass/Vol] 33.7 g/dL Normal 28.4-34.8 [facility] Comment on above: Performed By: #### C DP, GLYHGB #### [place] [address] Electrician'S Assistant: Sony Aguilar MD MCV (RBC) [Entitic vol] 86.9 fL Normal 82.6-102.[address] [facility] Comment on above: Performed By: #### C DP, GLYHGB #### [address] [address] Electrician'S Assistant: Sony Aguilar MD Monocytes (Bld) [#/Vol] 1.34 10*3/uL High 0.10-1.[address] [facility] Comment on above: Performed By: #### C DP, GLYHGB #### [facility] [address] [place] [address] Electrician'S Assistant: Sony Aguilar MD Monocytes/100 WBC (Bld) 9 % Normal 3-[address] [facility] Comment on above: Performed By: #### C DP, GLYHGB #### [address] [address] Electrician'S Assistant: Sony Aguilar MD Neutrophil (Seg) 79 % High 36-65 [facility] Comment on above: Performed By: #### C DP, GLYHGB #### [facility] [address] [place] [address] Electrician'S Assistant: Sony Aguilar MD NRBC Automated 0.0 per 100 WBC Normal 0.[address] [facility] Comment on above: Performed By: #### C DP, GLYHGB #### [facility] [address] [place] [address] Electrician'S Assistant: Sony Aguilar MD Platelet mean volume (Bld) [Entitic vol] 12.8 fL Normal 8.1-13.[address] [facility] Comment on above: Performed By: #### C DP, GLYHGB #### [address] [address] Electrician'S Assistant: Sony Aguilar MD Platelets (Bld) [#/Vol] 131 10*3/uL Low 138-[address] [facility] Comment on above: Performed By: #### C DP, GLYHGB #### [address] [address] Electrician'S Assistant: Sony Aguilar MD RBC (Bld) [#/Vol] 3.96 10*6/uL Low 4.21-5.[address] [facility] Comment on above: Performed By: #### C DP, GLYHGB #### [facility] [address] [place] [address] Electrician'S Assistant: Sony Aguilar MD WBC (Bld) [#/Vol] 14.6 10*3/uL High 3.5-11.[address] [facility] Comment on above: Performed By: #### C DP, GLYHGB #### [address] [address] Electrician'S Assistant: Sony Aguilar MD Auto Diff Performed NOT REPORTED Normal [facility] Comment on above: Performed By: #### C DP, GLYHGB #### [address] [address] Electrician'S Assistant: Sony Aguilar MD Platelets (Bld) [#/Vol] NOT REPORTED Normal [facility] Comment on above: Performed By: #### C DP, GLYHGB #### [address] [address] Electrician'S Assistant: Sony Aguilar MD RBC morphology finding Nom (Bld) NOT REPORTED Normal [facility] Comment on above: Performed By: #### C DP, GLYHGB #### [address] [address] Electrician'S Assistant: Sony Aguilar MD WBC Morphology NOT REPORTED Normal [facility] Comment on above: Performed By: #### C DP, GLYHGB #### [address] [address] Electrician'S Assistant: Sony Aguilar MD Abs. Basophil 0.04 k/uL Normal 0.00-0.[address] [facility] Comment on above: Performed By: #### C DP, LACTIC, CRP, CMPX, BH #### [address] [address] Electrician'S Assistant: Sony Aguilar MD Abs.Imm.Granulocyte 0.06 k/uL Normal 0.00-0.[address] [facility] Comment on above: Performed By: #### C DP, LACTIC, CRP, CMPX, #### [address] [address] Electrician'S Assistant: Sony Aguilar MD Abs.Neutrophil (Seg) 11.62 k/uL High 1.50-8.10 [facility] Comment on above: Performed By: #### C DP, LACTIC, CRP, CMPX, #### [place] [address] Electrician'S Assistant: Sony Aguilar MD Basophils/100 WBC (Bld) 0 % Normal 0-[address] [facility] Comment on above: Performed By: #### C DP, LACTIC, CRP, CMPX, #### [place] [address] Electrician'S Assistant: Sony Aguilar MD Eosinophils (Bld) [#/Vol] 0.03 10*3/uL Normal 0.00-0.[address] [facility] Comment on above: Performed By: #### C DP, LACTIC, CRP, CMPX, #### [place] [address] Electrician'S Assistant: Sony Aguilar MD Eosinophils/100 WBC (Bld) 0 % Low 1-[address] [facility] Comment on above: Performed By: #### C DP, LACTIC, CRP, CMPX, #### [place] [address] Electrician'S Assistant: Sony Aguilar MD Erythrocyte distribution width (RBC) [Ratio] 11.9 % Normal 11.8-14.[address] [facility] Comment on above: Performed By: #### C DP, LACTIC, CRP, CMPX, #### [facility] [address] [place] [address] Electrician'S Assistant: Sony Aguilar MD Hematocrit (Bld) [Volume fraction] 36.0 % Low 40.7-50.[address] [facility] Comment on above: Performed By: #### C DP, LACTIC, CRP, CMPX, #### [address] [address] Electrician'S Assistant: Sony Aguilar MD Hemoglobin (Bld) [Mass/Vol] 11.8 g/dL Low 13.0-17.[address] [facility] Comment on above: Performed By: #### C DP, LACTIC, CRP, CMPX, #### [address] [address] Electrician'S Assistant: Sony Aguilar MD Immature granulocytes (Bld) [#/Vol] 0 % Normal [address] [facility] Comment on above: Performed By: #### C DP, LACTIC, CRP, CMPX, #### [address] [address] Electrician'S Assistant: Sony Aguilar MD Lymphocytes (Bld) [#/Vol] 1.19 10*3/uL Normal 1.10-3.[address] [facility] Comment on above: Performed By: #### C DP, LACTIC, CRP, CMPX, #### [address] [address] Electrician'S Assistant: Sony Aguilar MD Lymphocytes/100 WBC (Bld) 8 % Low 24-[address] [facility] Comment on above: Performed By: #### C DP, LACTIC, CRP, CMPX, #### [address] [address] Electrician'S Assistant: Sony Aguilar MD MCH (RBC) [Entitic mass] 29.8 pg Normal 25.2-33.[address] [facility] Comment on above: Performed By: #### C DP, LACTIC, CRP, CMPX, #### [address] [address] Electrician'S Assistant: Sony Aguilar MD MCHC (RBC) [Mass/Vol] 32.8 g/dL Normal 28.4-34.8 [facility] Comment on above: Performed By: #### C DP, LACTIC, CRP, CMPX, #### [address] [address] Electrician'S Assistant: Sony Aguilar MD MCV (RBC) [Entitic vol] 90.9 fL Normal 82.6-102.[address] [facility] Comment on above: Performed By: #### C DP, LACTIC, CRP, CMPX, #### [address] [address] Electrician'S Assistant: Sony Aguilar MD Monocytes (Bld) [#/Vol] 1.39 10*3/uL High 0.10-1.[address] [facility] Comment on above: Performed By: #### C DP, LACTIC, CRP, CMPX, #### [address] [address] Electrician'S Assistant: Sony Aguilar MD Monocytes/100 WBC (Bld) 10 % Normal 3-[address] [facility] Comment on above: Performed By: #### C DP, LACTIC, CRP, CMPX, #### [address] [address] Electrician'S Assistant: Sony Aguilar MD Neutrophil (Seg) 82 % High 36-65 [facility] Comment on above: Performed By: #### C DP, LACTIC, CRP, CMPX, #### [address] [address] Electrician'S Assistant: Sony Aguilar MD NRBC Automated 0.0 per 100 WBC Normal 0.[address] [facility] Comment on above: Performed By: #### C DP, LACTIC, CRP, CMPX, #### [address] [address] Electrician'S Assistant: Sony Aguilar MD Platelet mean volume (Bld) [Entitic vol] 12.0 fL Normal 8.1-13.[address] [facility] Comment on above: Performed By: #### C DP, LACTIC, CRP, CMPX, #### [address] [address] Electrician'S Assistant: Sony Aguilar MD Platelets (Bld) [#/Vol] 160 10*3/uL Normal 138-[address] [facility] Comment on above: Performed By: #### C DP, LACTIC, CRP, CMPX, #### [address] [address] Electrician'S Assistant: Sony Aguilar MD RBC (Bld) [#/Vol] 3.96 10*6/uL Low 4.21-5.[address] [facility] Comment on above: Performed By: #### C DP, LACTIC, CRP, CMPX, #### [address] [address] Electrician'S Assistant: Sony Aguilar MD WBC (Bld) [#/Vol] 14.3 10*3/uL High 3.5-11.[address] [facility] Comment on above: Performed By: #### C DP, LACTIC, CRP, CMPX, #### [address] [address] Electrician'S Assistant: Sony Aguilar MD Auto Diff Performed NOT REPORTED Normal [facility] Comment on above: Performed By: #### C DP, LACTIC, CRP, CMPX, #### [address] [address] Electrician'S Assistant: Sony Aguilar MD Platelets (Bld) [#/Vol] NOT REPORTED Normal [facility] Comment on above: Performed By: #### C DP, LACTIC, CRP, CMPX, #### [address] [address] Electrician'S Assistant: Sony Aguilar MD RBC morphology finding Nom (Bld) NOT REPORTED Normal [facility] Comment on above: Performed By: #### C DP, LACTIC, CRP, CMPX, #### [facility] [address] [place] [address] Electrician'S Assistant: Sony Aguilar MD WBC Morphology NOT REPORTED Normal [facility] Comment on above: Performed By: #### C DP, LACTIC, CRP, CMPX, #### [facility] [address] [place] [address] Electrician'S Assistant: Sony Aguilar MD Comp Metabolic Pr/rfx MGon 1 11-08-2018 AST [Catalytic activity/Vol] 13 U/L Normal <[address] [facility] Comment on above: Performed By: #### C DP, LACTIC, CRP, CMPX, #### [address] [address] Electrician'S Assistant: Sony Aguilar MD (cont.) Normal [facility] Comment on above: Result Comment: Aver age GFR for 60-69 years old: 85 mL/min/1.73sq m Chronic Kidney Disease: <60 mL/min/1.73sq m Kidney failure: <15 mL/min/1.73sq m eGFR calculated using average adult body mass. Additional eGFR calculator available at: http://www.bookjam.nex[employer]une/multiple_crcl_2011.htm Performed By: #### C DP, LACTIC, CRP, CMPX, #### [address] [address] Electrician'S Assistant: Sony Aguilar MD Albumin [Mass/Vol] 2.6 g/dL Low 3.5-5.[address] [facility] Comment on above: Performed By: #### C DP, LACTIC, CRP, CMPX, #### [address] [address] Electrician'S Assistant: Sony Aguilar MD Albumin/Globulin [Mass ratio] 0.9 {ratio} Low 1.0-2.[address] [facility] Comment on above: Performed By: #### C DP, LACTIC, CRP, CMPX, #### [facility] [address] [place] [address] Electrician'S Assistant: Sony Aguilar MD Alkaline Phos 72 U/L Normal 40-[address] [facility] Comment on above: Performed By: #### C DP, LACTIC, CRP, CMPX, #### [facility] [address] [place] [address] Electrician'S Assistant: Sony Aguilar MD ALT [Catalytic activity/Vol] 14 U/L Normal 5-[address] [facility] Comment on above: Performed By: #### C DP, LACTIC, CRP, CMPX, #### [address] [address] Electrician'S Assistant: Sony Aguilar MD Anion gap [Moles/Vol] 11 mmol/L Normal 9-17 [facility] Comment on above: Performed By: #### C DP, LACTIC, CRP, CMPX, #### [facility] [address] [place] [address] Electrician'S Assistant: Sony Aguilar MD Bilirubin Ql (U) 0.64 mg/dL Normal 0.3-1.2 [facility] Comment on above: Performed By: #### C DP, LACTIC, CRP, CMPX, #### [facility] [address] [place] [address] Electrician'S Assistant: Sony Aguilar MD Calcium [Mass/Vol] 7.6 mg/dL Low 8.6-10.[address] [facility] Comment on above: Performed By: #### C DP, LACTIC, CRP, CMPX, #### [facility] [address] [place] [address] Electrician'S Assistant: Sony Aguilar MD Chloride [Moles/Vol] 99 mmol/L Normal 98-107 [facility] Comment on above: Performed By: #### C DP, LACTIC, CRP, CMPX, #### [address] [address] Electrician'S Assistant: Sony Aguilar MD CO2 [Moles/Vol] 22 mmol/L Normal 20-[address] [facility] Comment on above: Performed By: #### C DP, LACTIC, CRP, CMPX, #### [facility] [address] [place] [address] Electrician'S Assistant: Sony Aguilar MD Creatinine [Mass/Vol] 1.22 mg/dL High 0.70-1.20 [facility] Comment on above: Performed By: #### C DP, LACTIC, CRP, CMPX, #### [address] [address] Electrician'S Assistant: Sony Aguilar MD GFR, Amer >60 Normal >60 [facility] Comment on above: Performed By: #### C DP, LACTIC, CRP, CMPX, #### [address] [address] Electrician'S Assistant: Sony Aguilar MD GFR,non Amer 60 mL/min Low >60 [facility] Comment on above: Performed By: #### C DP, LACTIC, CRP, CMPX, #### [facility] [address] [place] [address] Electrician'S Assistant: Sony Aguilar MD Glucose [Mass/Vol] 293 mg/dL High 70-[address] [facility] Comment on above: Performed By: #### C DP, LACTIC, CRP, CMPX, #### [facility] [address] [place] [address] Electrician'S Assistant: Sony Aguilar MD Potassium [Moles/Vol] 4.3 mmol/L Normal 3.7-5.3 [facility] Comment on above: Performed By: #### C DP, LACTIC, CRP, CMPX, #### [facility] [address] [place] [address] Electrician'S Assistant: Sony Aguilar MD Protein [Mass/Vol] 5.6 g/dL Low 6.4-8.[address] [facility] Comment on above: Performed By: #### C DP, LACTIC, CRP, CMPX, #### [address] [address] Electrician'S Assistant: Sony Aguilar MD Sodium [Moles/Vol] 132 mmol/L Low 135-[address] [facility] Comment on above: Performed By: #### C DP, LACTIC, CRP, CMPX, #### [address] [address] Electrician'S Assistant: Sony Aguilar MD Urea nitrogen [Mass/Vol] 34 mg/dL High 8-[address] [facility] Comment on above: Performed By: #### C DP, LACTIC, CRP, CMPX, #### [address] [address] Electrician'S Assistant: Sony Aguilar MD BUN/CRE Ratio NOT REPORTED Normal 9-[address] [facility] Comment on above: Performed By: #### C DP, LACTIC, CRP, CMPX, #### [address] [address] Electrician'S Assistant: Sony Aguilar MD Staging: NOT REPORTED Normal [facility] Comment on above: Performed By: #### C DP, LACTIC, CRP, CMPX, #### [facility] [address] [place] [address] Electrician'S Assistant: Sony Aguilar MD Lactic Acidon 09-07-2019 Lactate [Moles/Vol] 1.4 mmol/L Normal 0.7-2.[address] [facility] Comment on above: Performed By: #### C DP, LACTIC, CRP, CMPX, #### [facility] [address] [place] [phone] Electrician'S Assistant: Sony Aguilar MD Lactate [Moles/Vol] NOT REPORTED Normal [facility] Comment on above: Performed By: #### C DP, LACTIC, CRP, CMPX, #### [facility] [address] [place] [id number] Electrician'S Assistant: Sony Aguilar MD MRSA DNA Probe, [...] for MRSA infections. Specimen Description .[place], [place] MRSA, DNA, Nasalon 9 MRSA, DNA, Nasal NEGATIVE: MRSA DNA n ot detected by nucleic acid amplification. Normal NMRSAA [facility] Comment on above: Result Comment: Results should be used as an adjunct to nosocomial control efforts to identify patients needing enhanced precautions. The test is not intended to identify patients with staphylococcal infections. Results should not be used to guide or monitor treatment for MRSA infections. Performed By: #### C DP, LACTIC, CRP, CMPX, #### [facility] [address] [place] [address] [id number] Electrician'S Assistant: Sony Aguilar MD POC Glucose Fingerstickon [...] Sample Expiration 09/09/2019,2359 Arm Band Number BE [id number] ABO/Rh(D) O NEGATIVE Antibody Screen NEGATIVE Normal [facility] Comment on above: Performed By: #### T YS #### [facility] [address] [place] [address] Electrician'S Assistant: Sony Aguilar MD BLOOD BANK SPECIMENon 2018 Blood Bank Specimen NOT REPORTED [place], [place] Beta-Hydroxybutyrateon 09-06 Beta-Hydroxybutyrate 0.67 mmol/L High 0.02 - 0.27 mmol/L [place], [place] Interpretation and review of laboratory results Abnormal [place], [place] Blood Bank Specimenon 2018 Blood Bank Specimen NOT REPORTED Normal [facility] C-Reactive Proteinon 019 CRP [Mass/Vol] 237.9 mg/L High 0 - 5 mg/L [place], [place] Interpretation and review of laboratory results [...] [place] Segs Absolute 11.62 High [place], [place] WBC (Bld) [#/Vol] 0.0 10*3/uL 0.0 per 10 0 WBC [place] WBC (Bld) [#/Vol] 14.3 10*3/uL [place] WBC Morphology NOT REPORTED [place], [place] Comprehensive Metabolic Pane l w/ Reflex [...] [place] Bun/Cre Ratio NOT REPORTED [place], [place] Calcium [Mass/Vol] 7.6 mg/dL Low 8.6 - 10. 4 mg/dL [place] Chloride [Moles/Vol] 99 mmol/L 98 - 10 7 mmol/L [place] CO2 [Moles/Vol] 22 mmol/L 20 - 31 mmol/L [place] Creatinine [Mass/Vol] 1.22 mg/dL High 0.7 - 1.2 mg/dL [place] GFR >60 >60 mL/min [place], [place] GFR Non- 60 mL/min Low >60 [...] body mass. Additional eGFR calculator available at: http://[email or web address].nexTune/multiple_crcl_2012.htm Glucose [Mass/Vol] 293 mg/dL High 70 - [...] plasmaon 2018 Lactate [Moles/Vol] NOT REPORTED mmol/L [place] Lactic Acid, Whole Blood 1.4 mmol/L 0.7 - 2.1 mmol/L [place] MRSA, DNA, Nasalon 9 Specimen Description .NASAL SWAB Normal [facility] Comment on above: Performed By: #### C DP, LACTIC, CRP, CMPX, #### [facility] [address], [place] [id number] Electrician'S Assistant: Sony Aguialr MD POC Glucose Fingerstickon Glucose [Mass/Vol] 286 [...] [place], [place] Arm Band Number BE [id number] [place], [place] Expiration Date 09/09/2019,2359 [place], [place] Vital Signs Date Time Vital Sign Value Performing Clinician John nicholas 12-25-2023 14:52-0400 Diastolic blood pressure 90 mm[Hg] Jaja Lee [facility] 12-25-2023 14:52-0400 Heart rate 55 /min Jaja Lee [facility] 12-25-2023 14:52-0400 SaO2% (BldA) [Mass fraction] 94 % Jaja Koffitheesherine [facility] 12-25-2023 14:52-0400 Systolic blood pressure 142 mm[Hg] Jaja Lee [facility] 10-21-2023 12:07-0500 Body height 188 cm Geovani Mack MD Work Phone: [facility] 10-21-2023 12:07-0500 Body mass index (BMI) [Ratio] 30.17 kg/m2 Geovani Mack MD Work Phone: [facility] 10-21-2023 12:07-0500 Body weight 106.59 kg Geovani Mack MD Work Phone: [facility] 10-21-2023 12:07-0500 Diastolic blood pressure 54 mm[Hg] Geovani Mack MD Work Phone: [facility] 10-21-2023 12:07-0500 Heart rate 58 /min Geovani Mack MD Work Phone: [facility] 10-21-2023 12:07-0500 Systolic blood pressure 102 mm[Hg] Geovani Mack MD Work Phone: [facility] 09-16-2023 12:46-0500 Body mass index (BMI) [Ratio] 34.7 kg/m2 Geovani Mack MD Work Phone: [facility] 09-16-2023 12:46-0500 Body weight 106.59 kg Geovani Mack MD Work Phone: [facility] 09-16-2023 12:42-0500 Body height 175.3 cm Geovani Mack MD Work Phone: [facility] 09-16-2023 12:42-0500 Diastolic blood pressure 66 mm[Hg] Geovani Mack MD Work Phone: [facility] 09-16-2023 12:42-0500 Heart rate 112 /min Geovani Mack MD Work Phone: [facility] 09-16-2023 12:42-0500 Systolic blood pressure 104 mm[Hg] Geovani Mack MD Work Phone: [facility] 04-06-2023 09:44-0400 Body mass index (BMI) [Ratio] 30.81 kg/m2 Geovani Mack MD Work Phone: [facility] 04-06-2023 09:44-0400 Body weight 96 kg Geovani Mack MD Work Phone: [facility] 03-26-2023 10:22-0400 Diastolic blood pressure 68 mm[Hg] Jaja Lee [facility] 03-26-2023 10:22-0400 Heart rate 71 /min Jaja Lee [facility] 03-26-2023 10:22-0400 Respiratory rate 14 /min Jaja Lee [facility] 03-26-2023 10:22-0400 SaO2% (BldA) [Mass fraction] 96 % Jaja Lee [facility] 03-26-2023 10:22-0400 Systolic blood pressure 118 mm[Hg] Jaja Lee [facility] 03-24-2023 13:36-0400 Body height 176.53 cm [facility] Work Phone: 03-24-2023 13:36-0400 Body mass index (BMI) [Ratio] 30.65 kg/m2 Hermilo Croucha Work Phone: [facility] [facility] DO Work Phone: 03-24-2023 13:36-0400 Body surface area Derived from formula 2.12 m2 Rugen M [place] Work Phone: [facility] [facility] DO Work Phone: 03-24-2023 13:36-0400 Body weight 95.51 kg Rugtheresa Lewis [place] Work Phone: [facility] [facility] DO Work Phone: 03-24-2023 13:36-0400 Diastolic blood pressure 52 mm[Hg] Rugtheresa Lewis Mati Work Phone: [facility] [facility] DO Work Phone: 03-24-2023 13:36-0400 Heart rate 72 /min Rugtheresa Lewis [place] Work Phone: [facility] [address] DO Work Phone: 03-24-2023 13:36-0400 Systolic blood pressure 90 mm[Hg] Hermilo Lewis [place] Work Phone: [facility] [facility] DO Work Phone: 02-14-2023 12:10-0400 Hourly Rounding Isaías FLEMING [facility] 02-14-2023 12:10-0400 Promise to Return Isaías FLEMING [facility] 02-14-2023 11:15-0400 Heart rate 67 /min Isaías LEELIN [facility] 02-14-2023 11:15-0400 SaO2% (BldA) [Mass fraction] 99 % Isaíasara WILDESLIN [facility] 02-14-2023 11:15-0400 Body temperature 97.52 [degF] Isaías WILDESLIN [facility] 02-14-2023 11:14-0400 Diastolic blood pressure 73 mm[Hg] Isaías WILDESLIN [facility] 02-14-2023 11:14-0400 Mean blood pressure 91 mm[Hg] Isaías LONNIE [facility] 02-14-2023 11:14-0400 Systolic blood pressure 128 mm[Hg] Isaías LONNIE [facility] 02-14-2023 11:10-0400 Hourly Rounding Isaías LONNIE [facility] 02-14-2023 11:10-0400 Promise to Return Isaías LONNIE [facility] 02-14-2023 10:23-0400 Hourly Rounding Isaías LONNIE [facility] 02-14-2023 10:23-0400 Promise to Return Isaías LONNIE [facility] 02-14-2023 07:34-0400 Heart rate 67 /min Isaías LONNIE [facility] 02-14-2023 07:34-0400 SaO2% (BldA) [Mass fraction] 100 % Isaías LONNIE [facility] 02-14-2023 07:34-0400 Body temperature 96.26 [degF] Isaías LONNIE [facility] 02-14-2023 07:33-0400 Diastolic blood pressure 80 mm[Hg] Isaías LONNIE [facility] 02-14-2023 07:33-0400 Mean blood pressure 104 mm[Hg] Isaías LONNIE [facility] 02-14-2023 07:33-0400 Systolic blood pressure 153 mm[Hg] Isaías LONNIE [facility] 02-14-2023 00:29-0400 Heart rate 60 /min Isaíasara WILDESLIN [facility] 02-14-2023 00:29-0400 SaO2% (BldA) [Mass fraction] 99 % Isaíasara WILDESLIN [facility] 02-14-2023 00:20-0400 Diastolic blood pressure 80 mm[Hg] Isaías LONNIE [facility] 02-14-2023 00:20-0400 Mean blood pressure 105 mm[Hg] Isaíasara WILDESLIN [facility] 02-14-2023 00:20-0400 Systolic blood pressure 156 mm[Hg] Isaíasara WILDESLIN [facility] 02-14-2023 00:18-0400 Body temperature 97.7 [degF] Isaíasara WILDESLIN [facility] 02-13-2023 19:25-0400 Body temperature 97.16 [degF] Isaíasara WILDESLIN [facility] 02-13-2023 15:44-0400 Body temperature 96.44 [degF] Isaíasara WILDESLIN [facility] 02-13-2023 11:00-0400 Body temperature 96.8 [degF] Isaíasara WILDESLIN [facility] 02-13-2023 10:30-0400 Blood Pressure Location Isaíasara WILDESLIN [facility] 02-13-2023 10:30-0400 Heart rate 50 /min Isaíasara WILDESLIN [facility] 02-13-2023 10:30-0400 Respiratory rate 16 /min Isaíasara WILDESLIN [facility] 02-13-2023 10:10-0400 Mean blood pressure 91 mm[Hg] Isaíasara WILDESLIN [facility] 02-13-2023 10:10-0400 Respiratory rate 20 /min Isaíasara WILDESLIN [facility] 02-13-2023 08:16-0400 Mean blood pressure 97 mm[Hg] Isaíasara WILDESLIN [facility] 02-13-2023 08:16-0400 Respiratory rate 18 /min Isaíasara WILDESLIN [facility] 02-13-2023 07:30-0400 Mean blood pressure 82 mm[Hg] Isaíasara WILDESLIN [facility] 02-13-2023 07:30-0400 Respiratory rate 22 /min Isaíasara WILDESLIN [facility] 02-13-2023 01:02-0400 SaO2% (BldA) [Mass fraction] 95.0 % Isaíasara WILDESLIN [facility] Resp Auto SS 02-13-2023 00:50-0400 gluc 124 mg/dL Isaíasara WILDESLIN [facility] 02-13-2023 00:50-0400 gluc Isaíasara WILDESLIN [facility] 02-13-2023 00:23-0400 Heart rate 52 /min Isaíasara WILDESLIN [facility] 02-13-2023 00:23-0400 Respiratory rate 12 /min Isaíasara WILDESLIN [facility] 02-11-2023 10:53-0400 Blood Pressure Location Bushra GONZALEZChapin [facility] 02-11-2023 10:53-0400 Diastolic blood pressure 65 mm[Hg] Bushra JIMENEZ [facility] 02-11-2023 10:53-0400 Heart rate 73 /min Bushra JIMENEZ [facility] 02-11-2023 10:53-0400 SaO2% (BldA) [Mass fraction] 97 % Bushra JIMENEZ [facility] 02-11-2023 10:53-0400 Systolic blood pressure 113 mm[Hg] Bushramillie JIMENEZ [facility] 01-26-2023 12:53-0400 gluc 156 mg/dL Isaías LONNIE [facility] 01-26-2023 12:00-0400 Diastolic blood pressure 60 mm[Hg] Isaías LONNIE [facility] 01-26-2023 12:00-0400 Heart rate 63 /min Isaías LONNIE [facility] 01-26-2023 12:00-0400 Hourly Rounding Isaías LONNIE [facility] 01-26-2023 12:00-0400 Mean blood pressure 82 mm[Hg] Isaías LONNIE [facility] 01-26-2023 12:00-0400 Promise to Return Isaías LONNIE [facility] 01-26-2023 12:00-0400 Respiratory rate 13 /min Isaías LONNIE [facility] 01-26-2023 12:00-0400 Systolic blood pressure 125 mm[Hg] Isaías LONNIE [facility] 01-26-2023 11:00-0400 Hourly Rounding Isaías LONNIE [facility] 01-26-2023 11:00-0400 Promise to Return Isaías LONNIE [facility] 01-26-2023 10:22-0400 gluc 140 mg/dL Isaías LONNIE [facility] 01-26-2023 10:21-0400 Diastolic blood pressure 52 mm[Hg] Isaías LONNIE [facility] 01-26-2023 10:21-0400 Systolic blood pressure 119 mm[Hg] Isaías LONNIE [facility] 01-26-2023 10:00-0400 Hourly Rounding Isaías LONNIE [facility] 01-26-2023 10:00-0400 Promise to Return Isaías LONNIE [facility] 01-26-2023 08:00-0400 Body temperature 97.7 [degF] Isaías LONNIE [facility] 01-26-2023 08:00-0400 Heart rate 62 /min Isaías LONNIE [facility] 01-26-2023 08:00-0400 Mean blood pressure 74 mm[Hg] Isaías LONNIE [facility] 01-26-2023 04:00-0400 Blood Pressure Location Isaías LONNIE [facility] 01-26-2023 04:00-0400 Body temperature 98.42 [degF] Isaías LONNIE [facility] 01-26-2023 04:00-0400 Heart rate 60 /min Isaías LONNIE [facility] 01-26-2023 04:00-0400 Mean blood pressure 89 mm[Hg] Isaías LONNIE [facility] 01-26-2023 04:00-0400 Respiratory rate 16 /min Isaíasara WILDESLIN [facility] 01-26-2023 04:00-0400 SaO2% (BldA) [Mass fraction] 97 % Isaíasara WILDESLIN [facility] 01-26-2023 00:00-0400 Blood Pressure Location Isaíasara WILDESLIN [facility] 01-26-2023 00:00-0400 Body temperature 98.24 [degF] Isaíasara WILDESLIN [facility] 01-26-2023 00:00-0400 SaO2% (BldA) [Mass fraction] 97 % Isaíasara WILDESLIN [facility] 01-25-2023 20:35-0400 Heart rate 68 /min Isaíasara WILDESLIN [facility] 01-24-2023 21:08-0400 Heart rate 76 /min Isaíasara WILDESLIN [facility] 01-24-2023 16:32-0400 gluc 208 mg/dL Isaíasara WILDESLIN [facility] 01-23-2023 16:35-0400 Respiratory rate 16 /min Isaíasara WILDESLIN [facility] 01-23-2023 11:16-0400 Mean blood pressure 87 mm[Hg] Isaías LONNIE [facility] 01-23-2023 08:37-0400 Mean blood pressure 91 mm[Hg] Isaías LONNIE [facility] 01-23-2023 04:06-0400 Mean blood pressure 91 mm[Hg] Isaías LONNIE [facility] 01-22-2023 04:20-0400 Heart rate 87 /min Isaías LONNIE [facility] 01-22-2023 04:20-0400 Respiratory rate 18 /min Isaías LONNIE [facility] 01-22-2023 00:39-0400 gluc Isaías LONNIE [facility] 01-22-2023 00:30-0400 Respiratory rate 18 /min Isaías LONNIE [facility] 12-25-2022 14:42-0400 Hourly Rounding Isaías LONNIE [facility] 12-25-2022 14:42-0400 Promise to Return Isaías LONNIE [facility] 12-25-2022 14:00-0400 Respiratory rate 18 /min Isaías LONNIE [facility] 12-25-2022 13:00-0400 Hourly Rounding Isaías LONNIE [facility] 12-25-2022 13:00-0400 Promise to Return Isaías LONNIE [facility] 12-25-2022 12:32-0400 Hourly Rounding Isaías LONNIE [facility] 12-25-2022 12:32-0400 Promise to Return Isaías LONNIE [facility] 12-25-2022 12:23-0400 gluc 214 mg/dL Isaías LONNIE [facility] 12-25-2022 11:40-0400 Heart rate 53 /min Isaías LONNIE [facility] 03-23-2023 11:40-0400 SaO2% (BldA) [Mass fraction] 99 % Isaías WILDESLIN [facility] 12-25-2022 11:40-0400 Body temperature 97.88 [degF] Isaíasara WILDESLIN [facility] 12-25-2022 11:39-0400 Diastolic blood pressure 67 mm[Hg] Isaíasara WILDESLIN [facility] 12-25-2022 11:39-0400 Mean blood pressure 79 mm[Hg] Isaíasara WILDESLIN [facility] 12-25-2022 11:39-0400 Systolic blood pressure 102 mm[Hg] Isaíasara WILDESLIN [facility] 12-25-2022 09:02-0400 gluc 140 mg/dL Isaías WILDESLIN [facility] 12-25-2022 08:04-0400 Heart rate 58 /min Isaíasara WILDESLIN [facility] 12-25-2022 08:04-0400 SaO2% (BldA) [Mass fraction] 99 % Isaías WILDESLIN [facility] 12-25-2022 08:03-0400 Body temperature 97.34 [degF] Isaíasara WILDESLIN [facility] 12-25-2022 08:03-0400 Diastolic blood pressure 75 mm[Hg] Isaíasara WILDESLIN [facility] 12-25-2022 08:03-0400 Mean blood pressure 91 mm[Hg] Isaíasara WILDESLIN [facility] 12-25-2022 08:03-0400 Systolic blood pressure 124 mm[Hg] Isaíasara WILDESLIN [facility] 12-25-2022 02:42-0400 Heart rate 51 /min Isaíasara WILDESLIN [facility] 12-25-2022 02:42-0400 SaO2% (BldA) [Mass fraction] 97 % Isaías LONNIE [facility] 12-25-2022 02:42-0400 Body temperature 97.52 [degF] Isaíasara WILDESLIN [facility] 12-25-2022 02:41-0400 Diastolic blood pressure 76 mm[Hg] Isaías LONNIE [facility] 12-25-2022 02:41-0400 Mean blood pressure 92 mm[Hg] Isaíasara WILDESLIN [facility] 12-25-2022 02:41-0400 Systolic blood pressure 125 mm[Hg] Isaíasara WILDESLIN [facility] 12-24-2022 21:22-0400 gluc 202 mg/dL Isaíasara WILDESLIN [facility] 12-24-2022 18:00-0400 Respiratory rate 18 /min Isaías LONNIE [facility] 12-24-2022 07:54-0400 Respiratory rate 16 /min Isaíasara WILDESLIN [facility] 12-23-2022 11:00-0400 Blood Pressure Location Isaías LONNIE [facility] 12-23-2022 08:03-0400 Body temperature 97.7 [degF] Isaíasara WILDESLIN [facility] 12-22-2022 21:00-0400 Mean blood pressure 91 mm[Hg] Isaías LONNIE [facility] 12-21-2022 08:21-0400 Heart rate 49 /min Isaías LONNIE [facility] 12-21-2022 04:15-0400 Mean blood pressure 100 mm[Hg] Isaías LONNIE [facility] 12-21-2022 04:15-0400 Respiratory rate 19 /min Isaías LONNIE [facility] 12-21-2022 04:00-0400 Mean blood pressure 83 mm[Hg] Isaías LONNIE [facility] 12-21-2022 04:00-0400 Respiratory rate 13 /min Isaías LONNIE [facility] 12-21-2022 03:30-0400 Respiratory rate 12 /min Isaías LONNIE [facility] 12-20-2022 23:22-0400 Heart rate 55 /min Isaías LONNIE [facility] 12-20-2022 23:21-0400 gluc Isaías LONNIE [facility] 12-20-2022 23:07-0400 Heart rate 67 /min Isaías LONNIE [facility] 10-01-2022 11:25-0500 Body height 187.96 cm Ana Norris Other [facility] Other 10-01-2022 11:25-0500 Body mass index (BMI) [Ratio] 28.89 kg/m2 Ana Norris Other [facility] Other 10-01-2022 11:25-0500 Body temperature 97.3 [degF] Ana Norris Other [facility] Other 10-01-2022 11:25-0500 Body weight 102.06 kg Ana Norris Other [facility] Other 10-01-2022 11:25-0500 Diastolic blood pressure 64 mm[Hg] Ana Norris Other [facility] Other 10-01-2022 11:25-0500 Respiratory rate 18 /min Ana Norris Other [facility] Other 10-01-2022 11:25-0500 SaO2% (BldA) [Mass fraction] 98 % Ana Norris Other [facility] Other 10-01-2022 11:25-0500 Systolic blood pressure 108 mm[Hg] Ana Norris Other [facility] Other 09-10-2019 11:21-0500 Body Temperature 97.9 [degF] Jeri Lion [facility], [place] 09-10-2019 11:21-0500 BP Diastolic 73 mm[Hg] Jeri Lion [facility], [place] 09-10-2019 11:21-0500 BP Systolic 142 mm[Hg] Jeri Lion [facility], [place] 09-10-2019 11:21-0500 Pulse (Heart Rate) 65 /min Jeri Johns [facility], [place] 09-10-2019 11:21-0500 Pulse Oximetry 94 % Jeri Lion [facility], [place] 09-10-2019 11:21-0500 Respiratory Rate 14 /min Jeri Lion [facility], [place] 09-10-2019 07:45-0500 BMI (Body Mass Index) 35.25 kg/m2 Jeri Lion [facility], [place] 09-10-2019 07:45-0500 Body weight 124.[address] [facility] [place] 09-10-2019 07:45-0500 Height [address] [facility] [place] Encounters Encounter Date Encounter Type Care Provider Facility Start: 12-25-2023 End: 12-26-2023 ambulatory Jaja Lee Facility:[facility] Start: 12-25-2023 End: 12-25-2023 Patient encounter procedure Jaja Lee [facility] Start: 12-25-2023 End: 12-26-2023 [facility] Start: 12-25-2023 End: 12-25-2023 Subsequent hospital visit by physician [facility] Comment on above: Status post placemen t of implantable loop recorder; Syncope and collapse Start: 12-18-2023 End: 12-19-2023 [facility] Start: 12-18-2023 End: 12-18-2023 Subsequent hospital visit by physician [facility] Comment on above: Status post placemen t of implantable loop recorder; Syncope and collapse Start: 12-11-2023 End: 12-12-2023 [facility] Start: 12-11-2023 End: 12-11-2023 Subsequent hospital visit by physician [facility] Comment on above: Status post placemen t of implantable loop recorder; Syncope and collapse Start: 12-04-2023 End: 12-05-2023 [facility] Start: 12-04-2023 End: 12-04-2023 Subsequent hospital visit by physician [facility] Comment on above: Status post placemen t of implantable loop recorder; Syncope and collapse Start: 11-13-2023 Clinis[facility] Result Encounter Hermilo Thorne MD Work Phone: [facility] External Department Unsolicited Start: 11-13-2023 Clinisync Result Encounter Hermilo Thorne MD Work Phone: [facility] External [facility] Unsolicited Start: 11-13-2023 End: 11-14-[address] [facility] Start: 11-06-2023 End: 11-07-[address] [facility] Start: 11-06-2023 End: 11-06-2023 Subsequent hospital visit by physician [facility] Comment on above: Status post placemen t of implantable loop recorder; Syncope and collapse Start: 10-30-2023 End: 10-31-[address] [facility] Start: 10-30-2023 End: 10-30-2023 Subsequent hospital visit by physician [facility] Comment on above: Status post placemen t of implantable loop recorder; Syncope and collapse Start: 10-21-2023 End: 10-22-2023 ambulatory [facility] Start: 10-21-2023 End: 10-21-2023 [...] by physician [facility] Comment on above: Status post placemen t of implantable loop recorder Start: 10-14-2023 End: 10-14-2023 Evaluation and management of inpatient [facility] Start: 10-14-2023 End: 10-14-2023 Evaluation and management of inpatient ESTHER M [facility] Start: 10-14-2023 End: 10-14-2023 Evaluation and management of inpatient [facility] Start: 10-13-2023 End: 10-13-2023 Evaluation and management of inpatient ESTHER M [facility] Start: 10-13-2023 End: 10-13-2023 Evaluation and management of inpatient ESTHER M [facility] Start: 10-13-2023 End: 10-13-2023 Evaluation and management of inpatient [facility] Start: 10-12-2023 End: 10-12-2023 Evaluation and management of inpatient [facility] Start: 10-12-2023 End: 10-12-2023 ambulatory ESTHER M [facility] Start: 10-12-2023 End: 10-14-2023 Evaluation and management of inpatient ESTHER M [facility] Start: 10-09-2023 End: 10-10-2023 ambulatory [facility] Start: 10-09-2023 End: 10-09-2023 Subsequent hospital visit by physician [facility] Comment on above: Status post placemen t of implantable loop recorder; Syncope and collapse Start: 10-07-2023 End: 10-07-2023 Emergency department patient visit Harjit Doan Facility:[facility] Start: 09-25-2023 End: 09-26-[address] [facility] Start: 09-25-2023 End: 09-25-2023 Subsequent hospital visit by physician [facility] Comment on above: Status post placemen t of implantable loop recorder; Syncope and collapse Start: 09-18-2023 End: 09-19-[address] [facility] Start: 09-18-2023 End: 09-18-2023 Subsequent hospital visit by physician [facility] Comment on above: Status post placemen t of implantable loop recorder; Syncope and collapse Start: 09-16-2023 End: 09-17-2023 ambulatory [facility] Start: 09-16-2023 End: 09-16-2023 [...] by physician [facility] Comment on above: Presence of other ca rdiac implants and grafts; Syncope and collapse Start: 09-11-2023 End: 09-12-2023 [facility] Start: 09-11-2023 End: 09-11-2023 Subsequent hospital visit by physician [facility] Comment on above: Status post placemen t of implantable loop recorder; Syncope and collapse Start: 09-04-2023 End: 09-05-2023 [facility] Start: 09-04-2023 End: 09-04-2023 Subsequent hospital visit by physician [facility] Comment on above: Status post placemen t of implantable loop recorder; Syncope and collapse Start: 08-26-2023 End: 08-27-2023 [facility] Start: 08-26-2023 End: 08-26-2023 Subsequent hospital visit by physician [facility] Comment on above: Status post placemen t of implantable loop recorder; Syncope and collapse Start: 08-21-2023 End: 08-22-2023 [facility] Start: 08-21-2023 End: 08-21-2023 Subsequent hospital visit by physician [facility] Comment on above: Status post placemen t of implantable loop recorder; Syncope and collapse Start: 08-14-2023 End: 08-15-2023 [facility] Start: 08-14-2023 End: 08-14-2023 Subsequent hospital visit by physician [facility] Comment on above: Status post placemen t of implantable loop recorder; Syncope and collapse Start: 08-07-2023 End: 08-08-2023 [facility] Start: 08-07-2023 End: 08-07-2023 Subsequent hospital visit by physician [facility] Comment on above: Status post placemen t of implantable loop recorder; Syncope and collapse Start: 07-16-2023 End: 07-17-2023 ambulatory GEOVANI MACK [facility] Start: 07-16-2023 End: 07-16-2023 Subsequent hospital visit by physician Arina Device [facility] Comment on above: Status post placemen t of implantable loop recorder; Syncope and collapse Start: 06-25-2023 End: 06-26-2023 ambulatory Jaja Lee Facility:[facility] Start: 06-15-[address] Hermilo Thorne Facility:[id number] Start: 05-11-[address] Hermilo Thorne Facility:[id number] Start: 04-13-2023 ambulatory GEOVANI MACK Facility:1 [id number] Start: 04-06-2023 End: 04-06-[address] Geovani Mack Facility:[id number] Start: 04-06-2023 End: 04-06-2023 Subsequent hospital visit by physician Geovani Mack MD Work Phone: [facility] Comment on above: Syncope and collapse Start: 03-26-2023 End: 03-27-2023 ambulatory Jaja Lee Facility:[facility] Start: 03-26-2023 End: 03-26-2023 Patient encounter procedure Jaja Lee [facility] Start: 03-24-2023 Office consultation new/estab patient 80 min Hermilo Thorne Work Phone: [facility] [address] DO Work Phone: Start: 03-24-2023 ambulatory GEOVANI MACK Facility:1 [id number] Start: 02-24-2023 End: 02-25-2023 ambulatory Bushra JIMENEZ Facility:[facility] Start: 02-17-2023 End: 02-17-2023 Emergency department patient visit DO Tita Albright Facility:[facility] Start: 02-13-2023 End: 02-14-2023 ambulatory John Lyn Facility:[facility] Start: 02-13-2023 End: 02-14-2023 Observation Isaías FLEMING [facility] Start: 02-11-2023 End: 02-12-2023 ambulatory Bushra JIMENEZ Facility:[facility] Start: 02-11-2023 End: 02-11-2023 Patient encounter procedure Bushra JIMENEZ [facility] Start: 02-11-2023 End: 02-11-[address] HERMILO THORNE Facility: Start: 01-22-2023 End: 01-26-2023 Evaluation and management of inpatient John Lyn Facility:[facility] Start: 01-22-2023 End: 01-26-2023 Evaluation and management of inpatient Isaías FLEMING [facility] Start: 01-19-2023 End: 01-20-2023 Evaluation and management of inpatient John S Eboni Facility:[facility] Start: 01-15-2023 End: 01-15-[address] LILIA ENGEL Facility:H1 Start: 01-01-2023 End: 01-02-2023 ambulatory Bushra JIMENEZ Facility:[facility] Start: 12-30-2022 End: 01-23-2023 Pre-admission assessment Kelly MACIAS [facility] Start: 12-24-2022 ambulatory GEOVANI MACK Facility:1 [id number] Start: 12-20-2022 End: 12-25-2022 Evaluation and management of inpatient Isaías FLEMING [facility] Start: 12-17-2022 End: 12-18-[address] LILIA [...] Start: 10-01-2022 End: 10-01-2022 ambulatory Ana Norris Facility:[facility] Start: 10-01-2022 End: 10-01-2022 ambulatory MD Bernie Guerra Work Phone: [facility] Work Phone: Start: 10-01-2022 End: 10-01-2022 Patient encounter procedure MD Bernie Guerra Work Phone: [facility] Work Phone: Start: 09-25-2022 End: 09-26-2022 ambulatory Bernie Guerra Facility:[facility] Start: 09-25-2022 End: 09-26-2022 ambulatory Bernie Guerra Facility:[facility] Start: 09-17-2022 End: 09-17-2022 ambulatory Kamran Wills Facility:[facility] Start: 09-01-2022 End: 09-02-2022 ambulatory Bernie Guerra Facility:[facility] Start: 08-26-2022 ambulatory Hue Monet Facility:[facility] Start: 08-20-2022 End: 08-21-2022 ambulatory Bernie Guerra Facility:[facility] Start: 08-20-2022 End: 08-21-2022 ambulatory Bernie Guerra Facility:[facility] Start: 08-18-2022 End: 08-19-2022 ambulatory Bernie Guerra Facility:[facility] Start: 08-13-2022 End: 08-15-[address] BERNIE GUERRA Facility: Start: 08-04-2022 End: 08-05-2022 ambulatory Bernie Guerra Facility:[facility] Start: 08-04-2022 End: 08-05-2022 ambulatory Bernie Arteaga Charlie Facility:[facility] Start: 07-31-2022 End: 08-01-2022 ambulatory Bernie Arteaga Charlie Facility:[facility] Start: 07-15-2022 End: 07-23-2022 Evaluation and management of inpatient Bernie Guerra Facility:[facility] Start: 07-08-2022 End: 07-15-2022 Evaluation and management of inpatient Bernie Arteaga Charlie Facility:[facility] Start: 07-08-2022 End: 07-09-2022 ambulatory Bernie Arteaga Charlie Facility:[facility] Start: 06-05-2022 End: 06-05-2022 ambulatory Bernie Arteaga Charlie Facility:[facility] Start: 09-06-2019 End: 09-10-2019 Evaluation and management of inpatient JERI LION [facility] Start: 09-06-2019 End: 09-10-2019 Evaluation and management of inpatient Jeri Lion Work Phone: [address] Ortho/Med Surg Patient encounter status Hermilo Thorne Work Phone: [facility] [address] DO Work Phone: Procedures Date Procedure [...] ESTHER LÓPEZ Start: 10-14-2023 ECG 12-LEAD ESTHER LPÓEZ Start: 10-14-2023 Basic metabolic 2000 panel - [...] PATIENT JERI ZIMMERADDA Start: 09-10-2019 CPAP JERI AMISHA Start: 09-10-2019 INCENTIVE SPIROMETRY RT JERI ZAMBRANORAGA DDA Start: 09-10-2019 Glucose blood reagent strip JERI KENYA RAGADDA Start: 09-10-2019 INCENTIVE SPIROMETRY RT JERI ZAMBRANORAGA DDA Start: 09-10-2019 Glucose blood reagent strip Shawn noriega Work Phone: Start: 09-10-2019 Gluc bld gluc mntr dev cleared fda spec home use JERI AMISHA Start: 09-10-2019 CPAP JERI AMISHA Start: 09-10-2019 INCENTIVE SPIROMETRY RT JERI ZAMBRANORAGA DDA Start: 09-10-2019 INITIATE OXYGEN THERAPY PROTOCOL JERI ZAMBRANORAGADDA Start: 09-10-2019 NASAL CANNULA OXYGEN JERI ZAMBRANORAGADDA Start: 09-10-2019 AMBULATE PATIENT JERI ZIMMERADDA Start: 09-10-2019 STRIP BULB SUCTION JERI AMISHA Start: 09-10-2019 Glucose blood reagent strip JERI KENYA RAGADDA Start: 09-10-2019 INCENTIVE SPIROMETRY RT JERI ZAMBRANORAGA DDA Start: 09-10-2019 Glucose blood reagent strip Shawn noriega Work Phone: Start: 09-10-2019 CPAP JERI AMISHA Start: 09-10-2019 Gluc bld gluc mntr dev cleared fda spec home use JERI AMISHA Start: 09-10-2019 INTAKE AND OUTPUT JERI LION [...] dev cleared fda spec home use JERI LINO Start: 09-09-2019 Glucose blood reagent strip Jeri [...] Start: 09-08-2019 Glucose blood reagent strip JERI KYEL Start: 09-08-2019 Gluc bld gluc mntr dev [...] JERI LION Start: 09-07-2019 IP CONSULT TO CAFETERIA ASSISTANT JERI AMISHA Start: 09-07-2019 WOUND CARE JERI LION Start: [...] Jaja Lee Cardiac catheterization [facility] [place] Work Phone: Catheter ablation of arrhythmogenic focus [facility] [place] Work Phone: Laparoscopic cholecystectomy [facility] [place] Work Phone: Operative procedure on knee Rugen [...] Office Visit [facility] [address] [place] [phone] Risa Barraza, EMERGENCY ROOM SPECIALIST-[employer]ICER HELPER [address] [facility] Medical [address], [address] [place], [place] [id number] [facility] Start: 10-21-2023 End: 10-21-2023 Patient encounter procedure 10/21/2023 12:45 PM EST Office Visit [facility] [address] [place] [phone] Geovani Mack MD [address] [facility] [address] [place], [place] [phone] [facility] Start: 09-16-2023 End: 09-16-2023 Patient encounter procedure [facility] Start: 06-05-2023 Influenza vaccination Influenza Vacc ine (#1) [facility] Start: 04-13-2023 FUV, Provider: Geovani Mack, Status: Pen, Time: 10:30 AM FUV, Provider: Geovani Mack, Status: Pen, Time: 10:30 AM [facility] 305 DO Work Phone: Start: 09-09-2020 Creatinine monitoring Creatinine mon itoring [place], [place] Start: 09-09-2020 Potassium monitoring Potassium monit [place]ing [place] Start: 06-05-2019 Influenza vaccination Flu vaccine (# 1) [place] Start: 2018 Abdominal aortic aneurysm screening Abdominal Aortic Aneurysm (AAA) Screening [facility] Start: 2018 Pneumococcal 65+ yea rs Vaccine (1 of 1 - PPSV23) Pneumococcal 65+ years Vaccine (1 of 1 - PPSV23) [place] Start: 2018 Pneumococcal Vaccine : 65+ Years (1 - PCV) Pneumococcal Vaccine: 65+ Years (1 - PCV) [facility] Start: 2003 Zoster Vaccines (1 o f 2) Zoster Vaccines (1 of 2) [facility] Start: 1975 DTaP/Tdap/Td Vaccine s (1 - Tdap) DTaP/Tdap/Td Vaccines (1 - Tdap) [facility] Start: 1972 Urine screening for protein Diabetes: Urine Protein Screening [facility] Start: 1971 Diabetes mellitus screening Diabetes Screening [facility] Start: 1971 Hepatitis C screening Hepatitis C Sc reening [facility] Start: 1963 Diabetic foot examination Diabetes: Foot Exam [facility] Start: 1963 Glaucoma screening Diabetes: R etinopathy Screening [facility] Start: 1959 Pneumococcal Vaccine : 65+ Years (1 - PCV) Pneumococcal Vaccine: 65+ Years (1 - PCV) [facility] Start: 04-17-1954 COVID-19 Vaccine (#1) COVID-19 Vacci ne (#1) [facility] Start: 1953 Hemoglobin A1c measurement Diabetes: Hemoglobin A1C [facility] Start: 1953 Lipid panel Lipid Panel [facility] Start: 1953 Medicare Annual Wellness Visit Medicare Annual Wellness Visit (AWV) [facility] Start: 1955 Screening for malign ant neoplasm of colon [facility] Anaerobic and Aerobi c Culture Anaerobic and Aerobic Culture Microbiology Routine 09/06/2019 8:39 PM [place], [place] End: 09-16-2024 Cardiac Device Check - In Clinic Cardiac Device Check - In Clinic Implantable Cardiac Device Routine Status post placement of implantable loop recorder 1 Occurrences starting 09/16/2023 until 09/16/2024 [facility] Service Area Work Phone: Comment on above: 1 Occurrences starti ng 09/16/2023 until 09/16/2024 Cardiac device check - In Clinic Cardiac device check - In Clinic Implantable Cardiac Device Routine Presence of other cardiac implants and grafts Syncope and collapse 09/16/2023 12:04 PM [facility] Area Work Phone: Cardiac Device Check - In Clinic Cardiac Device Check - In Clinic Implantable Cardiac Device Routine Status post placement of implantable loop recorder 10/21/2023 11:30 AM EST [facility] Area Work Phone: End: 08-07-2023 Cardiac Device Check - Remote [facility] Service Area Work Phone: Comment on above: Once for 1 Occurrenc es starting 08/07/2023 until 08/07/2023 End: 08-14-2023 Cardiac Device Check - Remote [facility] Service Area Work Phone: Comment on above: Once for 1 Occurrenc es starting 08/14/2023 until 08/14/2023 End: 08-21-2023 Cardiac Device Check - Remote [facility] Service Area Work Phone: Comment on above: Once for 1 Occurrenc es starting 08/21/2023 until 08/21/2023 End: 08-26-2023 Cardiac Device Check - Remote [facility] Service Area Work Phone: Comment on above: Once for 1 Occurrenc es starting 08/26/2023 until 08/26/2023 End: 09-04-2023 Cardiac Device Check - Remote [facility] Service Area Work Phone: Comment on above: Once for 1 Occurrenc es starting 09/04/2023 until 09/04/2023 End: 09-11-2023 Cardiac Device Check - Remote [facility] Service Area Work Phone: Comment on above: Once for 1 Occurrenc es starting 09/11/2023 until 09/11/2023 End: 09-18-2023 Cardiac Device Check - Remote [facility] Service Area Work Phone: Comment on above: Once for 1 Occurrenc es starting 09/18/2023 until 09/18/2023 End: 09-25-2023 Cardiac Device Check - Remote [facility] Service Area Work Phone: Comment on above: Once for 1 Occurrenc es starting 09/25/2023 until 09/25/2023 End: 10-09-2023 Cardiac Device Check - Remote [facility] Service Area Work Phone: Comment on above: Once for 1 Occurrenc es starting 10/09/2023 until 10/09/2023 End: 10-30-2023 Cardiac Device Check - Remote [facility] Service Area Work Phone: Comment on above: Once for 1 Occurrenc es starting 10/30/2023 until 10/30/2023 End: 11-06-2023 Cardiac Device Check - Remote [facility] Service Area Work Phone: Comment on above: Once for 1 Occurrenc es starting 11/06/2023 until 11/06/2023 End: 12-11-2023 Cardiac Device Check - Remote [facility] Service Area Work Phone: Comment on above: Once for 1 Occurrenc es starting 12/11/2023 until 12/11/2023 End: 12-25-2023 Cardiac Device Check - Remote [facility] Service Area Work Phone: Comment on above: Once for 1 Occurrenc es starting 12/25/2023 until 12/25/2023 CPAP CPAP Respiratory Care Routine Every 4hr until discontinued starting 09/08/2019 [place] Comment on above: Every 4hr until disc ontinued starting 09/08/2019 Culture Blood #1 [facility] [place] Incentive spirometry RT Incentiv e spirometry RT Respiratory Care Routine Every 2hr while awake until discontinued starting 09/07/2019 [facility] [place] Comment on above: Every 2hr while awak e until discontinued starting 09/07/2019 Initiate Oxygen Ther apy Protocol Initiate Oxygen Therapy Protocol Respiratory Care Routine Daily until discontinued starting 09/06/2019 [facility] [place] Comment on above: Daily until disconti nued starting 09/06/2019 MDI Treatment MDI Treatment Respiratory Care Routine Every 6hr As Needed until discontinued starting 09/07/2019 [facility] [place] Comment on above: Every 6hr As Needed until discontinued starting 09/07/2019 Nasal Cannula Oxygen Nasal Cannu la Oxygen Respiratory Care Routine Daily until discontinued starting 09/07/2019 [facility] [place] Comment on above: Daily until disconti nued starting 09/07/[address] [facility] [address] [facility] above: 4X Daily (AC & HS) u ntil discontinued starting 09/07/2019 As Needed until disc ontinued starting 09/06/2019 As Needed until disc ontinued starting 09/07/2019 As Needed until disc ontinued starting 09/08/2019 Tissue Culture Tissue Culture Microbiology Routine 09/06/2019 8:39 PM EST [facility] [place], [place] Immunizations Immunization Date Immunization Notes Care Provider Fa ange 08-04-2022 Influenza, Seasonal, Quadrivalent, Adjuvanted Hermilo Thorne MD Work Phone: [facility] 08-04-2022 influenza virus vaccine, unspecified formulation [facility] Work Phone: 09-16-2021 influenza, injectabl e, quadrivalent, preservative free Hermilo Thorne MD Work Phone: [facility] 07-09-2020 influenza, injectabl e, quadrivalent, preservative free Hermilo Thorne MD Work Phone: [facility] Healthcare Payers Date Payer Category Payer Unknown [id number] 2022 Medicaid [id number] 2022 Unknown 2022 Self-pay 2019 Private Health Insurance [facility] MEDIC[facility] SUPP xxxxxxxxxxx 2019-Present [phone] [address] [place] [address] xxxxxxxxxxx [id number] 2018 Medicare MEDICARE MEDICAR E PART A AND B xxxxxxxxxx 2018-Present [phone] [address] [address] [place] [address] xxxxxxxxxx [id number] 2018 Medicare [id number] 2018 Medicare [id number]. [id number]. [id number] 1959 Medicaid [id number] 1959 Medicare [id number] 1959 Private Health Insurance [id number] 1959 Unknown [id number] 1953 Unknown [id number] 2.16.840.1.538173.3.579.2. 175 1953 Unknown [id number] 2.16.840.1.998273.3.579.2. 593 1953 Unknown [id number] 2.16.840.1.466014.3.579.2. 593 1953 Unknown [id number] 2.16.840.1.664164.3.579.2. 593 1953 Unknown [id number] 2.16.840.1.141310.3.579.2. 593 1953 Unknown [id number] 2.16.840.1.223291.3.579.2. 593 1953 Unknown [id number] 2.16.840.1.506340.3.579.2. 593 1953 Unknown [id number] 2.16.840.1.712417.3.579.2. 593 1953 Unknown [id number] 2.16.840.1.868895.3.579.2. 593 1953 Unknown [id number] 2.16.840.1.001108.3.579.2. 718 1953 Unknown [id number] 2.16.840.1.119693.3.579.2. 718 1953 Unknown [id number] 2.16.840.1.470954.3.579.2. 718 1953 Unknown [id number] 2.16.840.1.365288.3.579.2. 718 1953 Unknown [id number] 2.16.840.1.176880.3.579.2. 718 1953 Unknown [id number] 2.16.840.1.703407.3.579.2. 718 1953 Unknown [id number] 2.16.840.1.264064.3.579.2. 718 1953 Unknown [id number] 2.16.840.1.084126.3.579.2. 1953 Unknown [id number] 2.16.840.1.565913.3.579.2. 8 1953 Unknown [id number] 2.16.840.1.264721.3.579.2. 1953 Unknown [id number] 2.16.840.1.973451.3.579.2. 1953 Unknown [id number] 2.16.840.1.052564.3.579.2. 1953 Unknown [id number] 2.16.840.1.318868.3.579.2. 1953 Unknown [id number] 2.16.840.1.478034.3.579.2. 1953 Unknown [id number] 2.16.840.1.155368.3.579.2. 1953 Unknown [id number] 2.16.840.1.164377.3.579.2. 8 1953 Unknown [id number] 2.16.840.1.655972.3.579.2. 8 1953 Unknown [id number] 2.16.840.1.520839.3.579.2. 1067 1953 Unknown [id number] 2.16.840.1.458894.3.579.2. 356 1953 Unknown [id number] 2.16.840.1.930942.3.579.2. 356 1953 Unknown [id number] 2.16.840.1.312991.3.579.2. 356 1953 Unknown [id number] 2.16.840.1.483855.3.579.2. 1244 1953 Unknown [id number] 2.16.840.1.614335.3.579.2. 1244 1953 Unknown [id number] 2.16.840.1.348518.3.579.2. 1244 1953 Unknown [id number] 2.16.840.1.547908.3.579.2. 72 1953 Unknown [id number] 2.16.840.1.067732.3.579.2. 72 1953 Unknown [id number] 2.16.840.1.827127.3.579.2. 1953 Unknown [id number] 2.16.840.1.923428.3.579.2. 7 1953 Unknown [id number] 2.16.840.1.721581.3.579.2. 1953 Unknown [id number] 2.16.840.1.296252.3.579.2. 727 1953 Unknown [id number] 2.16.840.1.666082.3.579.2. 1953 Unknown [id number] 2.16.840.1.051209.3.579.2. 727 1953 Unknown [id number] 2.16.840.1.516332.3.579.2. 1953 Unknown [id number] 2.16.840.1.314057.3.579.2. 72 1953 Unknown [id number] 2.16.840.1.868582.3.579.2. 1953 Unknown [id number] 2.16.840.1.065129.3.579.2. 6 1953 Unknown [id number] 2.16.840.1.545855.3.579.2. 1245 1953 Unknown [id number] 2.16.840.1.449999.3.579.2. 1245 1953 Unknown [id number] 2.16.840.1.968201.3.579.2. 1245 1953 Unknown [id number] 2.16.840.1.575449.3.579.2. 1245 1953 Unknown [id number] 2.16.840.1.108064.3.579.2. 1245 1953 Unknown [id number] 2.16.840.1.615464.3.579.2. 1245 1953 Unknown [id number] 2.16.840.1.274604.3.579.2. 1245 1953 Unknown [id number] 2.16.840.1.210992.3.579.2. 1245 1953 Unknown [id number] 2.16.840.1.411799.3.579.2. 1245 1953 Unknown [id number] 2.16.840.1.689842.3.579.2. 1245 1953 Unknown [id number] 2.16.840.1.832926.3.579.2. 1245 1953 Unknown [id number] 2.16.840.1.299194.3.579.2. 1245 1953 Unknown [id number] 2.16.840.1.463936.3.579.2. 1245 1953 Unknown [id number] 2.16.840.1.338696.3.579.2. 1245 1953 Unknown [id number] 2.16.840.1.253477.3.579.2. 1245 1953 Unknown [id number] 2.16.840.1.341180.3.579.2. 1245 1953 Unknown [id number] 2.16.840.1.192115.3.579.2. 1246 1953 Unknown [id number] 2.16.840.1.834446.3.579.2. 6 1953 Unknown [id number] 2.16.840.1.110570.3.579.2. 1246 1953 Unknown [id number] 2.16.840.1.708773.3.579.2. 1245 1953 Unknown [id number] 2.16.840.1.901140.3.579.2. 1246 1953 Unknown [id number] 2.16.840.1.061292.3.579.2. 1245 1953 Unknown [id number] 2.16.840.1.338798.3.579.2. 1246 1953 Unknown [id number] 2.16.840.1.978764.3.579.2. 1245 1953 Unknown [id number] 2.16.840.1.618737.3.579.2. 1246 1953 Unknown [id number] 2.16.840.1.811720.3.579.2. 1246 1953 Unknown [id number] 2.16.840.1.769817.3.579.2. 1246 Unknown [id number] 2.16.840.1.266084.3.579.2. 531 Unknown Dima REARDON/BS HUONG [id number] Social History Date Type Detail Facility Start: 09-09-[facility] [place] Start: 09-09-2019 End: 10-21-2023 Cigarettes smoked current (pack per day) - Reported [place] Comment on above: 1 cup daily; quit 10/2022, smoked X 50 years; Start: 09-09-2019 Alcohol intake Lifetime non-d emanuel (finding) [place] Start: 09-07-2019 History SDOH Alcohol Frequency 1 [facility] ARIA SCHERER Start: 09-07-2019 Tobacco Comment currently quit ting, now 5 cigs/day [facility] ARIA SCHERER Start: 1955 Sex Assigned At Not on file M марина Webster ARIA SCHERER Start: 1955 Sex Assigned At Male F [facility] Start: 09-16-2023 End: 10-21-2023 Sex Assigned At [facility] Start: 12-21-2022 Tobacco smoking status Heavy t obacco smoker (finding) [facility] Comment on above: 1.5 ppd. Has not smo ked since October 03, 2022 Tobacco quit this month Tobacco Use:. [facility] Comment on above: unknown. unable to a ssess at this time. Tobacco smoking status No Smokin g Status Entered [facility] Start: 02-11-2023 End: 09-16-2023 Tobacco smoking status Ex-smoker (finding) [facility] Comment on above: unknown. unable to a ssess at this time. Tobacco smoking status Never [facility] Comment on above: unknown. unable to a ssess at this time. [facility] consumption unknown [facility] Work Phone: Start: 07-06-2023 End: 07-16-2023 Exposure to SARS-CoV-2 (event) Unable to assess [facility] End: 10-05-2022 History of tobacco use Current smoker [facility] Work Phone: End: 10-05-2022 History of tobacco use Cigarette Smoker [facility] Work Phone: Start: 03-18-2023 End: 09-16-2023 Tobacco use and exposure Smokeless tobacco non-user [facility] Work Phone: Start: 09-16-2023 End: 10-21-2023 Alcohol intake Ex-drinker (finding) [facility] Work Phone: Start: 09-06-2023 End: 10-21-2023 Exposure to SARS-CoV-2 (event) Not sure [facility] Functional Status Date Assessment Result Facility 12-25-2023 Functional Status N/A [facility] 03-26-2023 Functional Status No [facility] 02-13-2023 Functional Status N/A [facility] 02-13-2023 Functional Status [facility] 02-11-2023 Functional Status No [facility] 01-22-2023 Functional Status N/A [facility] 01-22-2023 Functional Status [facility] 12-21-2022 Functional Status N/A [facility] 12-20-2022 Functional Status [facility] Clinical Notes 03-25-2022 to 10-21-2023 Geovani Mack [...] this document. documented in this encounter [facility] Work Phone: 10-21-2023 Instructions Palak [...] Mack MD documented in this encounter [facility] Work Phone: 09-16-2023 History of Present illness Narrative CARDIOLOGY OFFICE VISIT CHIEF COMPLAINT Chief Complaint Patient presents with Follow-up 4 month [facility] HISTORY OF PRESENT ILLNESS HPI 67-year-old [...] this document. documented in this encounter [facility] Work Phone: 09-16-2023 Instructions Emelia [...] MACK MD documented in this encounter [facility] Work Phone: 04-06-2023 Note Pre-procedure [...] Findings: grossly normal anatomy Procedure performed by: ms Shipping & Receiving Lead(s): none Estimated Blood Loss (mL): none Specimen: [...] of infection. The patient should call the pbx manager immediately if symptoms recur, or for any [...] settings ([employer] Linq 2 MRI compatible RLB [id number]) Tolerance: good Complications: None Attestation: Note Completion: Attending AttestationI performed the procedure without a resident Electronic Signatures: Geovani Mack) (Signed 06-Apr-2023 17:47) Authored: Pre-procedure Verification and Time Out, General Information, Procedure Details, Note Completion Last Updated: 06-Apr-2023 17:47 by Geovani Mack) [facility] 04-06-2023 Note History & Physical [...] Last Updated: 06-Apr-2023 17:46 by Geovani Mack) [facility] 04-06-2023 History and physical note [...] Last Updated: 06-Apr-2023 17:46 by Geovani Mack) [facility] Work Phone: 04-06-2023 History and [...] Geovani Mack) documented in this encounter [facility] Work Phone: 02-14-2023 Note Monty Lockwood [facility] Comment on above: [...] Mahesh Lema MD Within 2 weeks [address] [place] [phone] Additional Instructions: HERMILO THORNE MD Within 2 to 4 days [address] [place] [address]- Additional Instructions: Extracted from: Title:Consult [...] diabetes mellitus without complications) 4. CAD in [place] artery (I25.10: Atherosclerotic heart disease of [place] coronary artery without angina pectoris) 5. A-fib [...] Peripheral neuropathy (G62.9: Polyneuropathy, unspecified) Addendum by Dax LEMONS, Dick Johns on February 13, 2023 11:13:15 EDT If the patient is found to be orthostatic despite discontinuation of his donepezil and Cardizem, he may benefit from midodrine therapy to assist with cerebral perfusion. Extracted from: Title:Admission H & P Author:John Lyn MD Date:02/13/23 67-year-old male with past m edical history of dementia, atrial fibrillation, suspected seizures from previous unresponsive episode on Keppra, CAD s/p stents on Plavix (received stents in [place] around 10 years ago per patient), chronic diastolic heart failure, hypertension, hyperlipidemia, chronic GERD, obesity, chronic anemia presented on 01/20/23 from senior care with syncope. Syncope/unresponsiveness Bradycardia Frequent episodes of [...] made to ensure accuracy, however, inadvertently computerized fishing worker mistakes may be present. Extracted from: Title:ED [...] Scheduled Provider:Zia LEMONS, Jaja Dash Location[facility] [place] Appointment Type:Cardiology Follow Up (FT) [facility]Result Comment: Electronically Signed By: Eboni LEMONS, John White\.br\Date and Time Signed: 02/13/23 12:34 [id number] Hospital Discharge instructions Follow Up Care 02/13/2023 00:22:57 With:Mahesh Lema MD Address: [address] [place] [phone] When:2 weeks With:HERMILO THORNE MD Address: [address] [place], [place] [id number]- When:2 to 4 days [facility]04[facility]30[facility] HospitalComment on above:Result Comment: Electronically Signed By: Stephan QUINN MD\.br\Date and Time Signed: 02/01/23 10:52 [id number] Evaluation + Plan noteExtracted from: Title:Discharge Note Author:Stephan QUINN MD Date: 01/26/23 Discharge To, Anticipated II - Intermediate Care/ECF Discharged to - retirement unit Transported by, Anticipated - Family Discharge [...] SubCutaneous, qWeek With When Contact Information Mahesh Dax Within 1 to 2 weeks [address] [place] [address]- [phone] Business (1) Additional Instructions: HERMILO THORNE Within 3 to 5 days [address] [place] [address]- Business (1) Additional Instructions: Lilia Castanon MD, NEU Within 2 to 4 weeks [facility] [address] [place] [address]- Additional Instructions: Extracted from: Title:APSO [...] (I48.91: Unspecified atrial fibrillation) 3. CAD in [place] artery (I25.10: Atherosclerotic heart disease of [place] coronary artery without angina pectoris) 4. Dementia [...] (I48.91: Unspecified atrial fibrillation) 3. CAD in [place] artery (I25.10: Atherosclerotic heart disease of [place] coronary artery without angina pectoris) 4. Dementia [...] (I48.91: Unspecified atrial fibrillation) 3. CAD in [place] artery (I25.10: Atherosclerotic heart disease of [place] coronary artery without angina pectoris) 4. Dementia [...] (I48.91: Unspecified atrial fibrillation) 3. CAD in [place] artery (I25.10: Atherosclerotic heart disease of [place] coronary artery without angina pectoris) 4. Dementia [...] s/p stents on Plavix (received stents in [place] around 10 years ago per patient), chronic diastolic heart failure, hypertension, hyperlipidemia, chronic GERD, obesity, chronic anemia presented on 01/20/23 from senior care with syncope. Syncope Concerns for seizures given history from senior care Patient mentioned he has chronic syncope for [...] made to ensure accuracy, however, inadvertently computerized fishing worker mistakes may be present. Dr. John Lyn Hospitalist Addendum by Lucinda Lyn MD on January 23, 2023 10:25:32 EDT Patient [...] AM Scheduled Provider:Starr Oneal DO Location:[facility] Appointment Type:Cardiology Follow Up (FT) Diagnostic Tests Pending * Cortisol 01/26/23 [facility]04[facility]21[facility]2023 [facility] HospitalComment on above:Result Comment: Electronically Signed By: Eboni LEMONS, John White\.br\Date and Time Signed: 01/23/23 10:25 [id number] NoteAttempted PT Evaluation. Spoke to nursing who requested to Hold this date. [facility] Hospital Discharge instructions Follow Up Care 01/22/2023 00:29:48 With:Mahesh Lema Address: [address] [place] [address]- [phone] Business (1) When:1 to 2 weeks With:HERMILO THORNE Address: [address] [place] [address]- Business (1) When:3 to 5 days With:Lilia Castanon MD, NEU Address: [facility] [address] [place] [address]- When:2 to 4 weeks [facility]04-18-2023 [facility] HospitalComment on above:Result Comment: Electronically Signed By: John Lyn MD\.br\Date and Time Signed: 01/20/23 14:29 [id number] [facility] Comment on above:Result Comment: Electronically Signed By: Ayaan NAQVI MD\.br\Date and Time Signed: 01/17/23 17:06 [id number] Hospital Discharge instructions Patient Education 12/25/2022 12:28:46 Syncope, Bysp-ii-Idzo Syncope Syncope is when you pass out [...] pee (urine) pale yellow. General instructions Take arzj-dsn-ndgjexw and prescription medicines only as told by [...] 03/09/2009 Document Revised: 11/03/2018 Document Reviewed: 11/03/2018 CEDU Patient Education 2020 [employer]. Follow Up Care 12/20/2022 23:06:47 With:Call [phone] to schedule 30 event monitro placement. Address:Unknown When: Unknown With:Bushra JIMENEZ Address: [address] [place] [address]- [phone] Business (1) When:5 to 7 days With:HERMILO THORNE Address: [address] [place] [address]- Business (1) When:2 to 4 days With:Lg LEMONS, KAREN Hernandez Address: [facility] [address] [place] [address]- When:2 to 4 weeks [facility]03-22-2023 Evaluation + Plan noteExtracted from: Title:Progress/SOAP Note Author:Tiff JIMENEZ CNP Date:12/24/22 1. Unresponsive episode (R41 .89: Other symptoms and signs involving cognitive functions and awareness) 1. Unspecified atrial fibrillation, (I48.91: Unspecified atrial fibrillation)Atrial fibrillation with slow ventricular response Given history of atrial fibrillation, he should be anticoagulated given his high GBE2PI3-OTQt score. However, if he continues to have [...] discharge. He should follow-up with his primary feed blender. 3. History of seizures (Z87.898: Personal history of other specified conditions) 4. Coronary artery disease (I25.10: Atherosclerotic heart disease of [place] coronary artery without angina pectoris) 5. Hypertension [...] echo shows EF 60% Obtain medication records-from [facility] pending. 3. History of seizures (Z87.898: Personal history of other specified conditions) Place on seizure precautions. Keppra 750 twice daily Will obtain records from his recent hospitalization at [facility] to determine prior work-up and further past medical history. EEG normal. 4. Cor onary artery disease (I25.10: Atherosclerotic heart disease of [place] coronary artery without angina pectoris) Patient did [...] the 50s Troponins negative Was seen by feed blender who recommended to decrease Coreg to 3.125 [...] obtain records from his recent hospitalization at [facility] to determine prior work-up and further past medical history. EEG 4. Coronary artery disease (I25.10: Atherosclerotic heart disease of [place] coronary artery without angina pectoris) Patient did [...] artery disease (I25.10: Atherosclerotic heart disease of [place] coronary artery without angina pectoris) 5. Hypertension [...] to ensure accuracy , however, inadvertently computerized fishing worker mistakes may be present . Addendum by [...] echo Observe on telemetry Obtain medication records-from [facility] pending. 3. History of seizures (Z87.898: Personal history of other specified conditions) Place on seizure precautions. Keppra 750 twice daily Will obtain records from his recent hospitalization at [facility] to determine prior work-up and further past medical history. EEG normal. 4. Cor onary artery disease (I25.10: Atherosclerotic heart disease of [place] coronary artery without angina pectoris) Patient did [...] defecation outpatient follow-up Extracted from: Title:Progress/SOAP Note Author:Dax LEMONS, Dick Johns Date:12/22/22 1. Unresponsive episode (R41 .89: Other symptoms and signs involving cognitive functions and awareness) 1. Unspecified atrial fibrillation, (I48.91: Unspecified atrial fibrillation)Atrial fibrillation with slow ventricular response 3. History of seizures (Z87.898: Personal history of other specified conditions) 4. Coronary artery disease (I25.10: Atherosclerotic heart disease of [place] coronary artery without angina pectoris) It is [...] trying to obtain old records from his feed blender to determine if he still requires Plavix [...] artery disease (I25.10: Atherosclerotic heart disease of [place] coronary artery without angina pectoris) 5. Hypertension [...] (E66.9: Obesity, unspecified) Extracted from: Title:Consult Note Author:Dax LEMONS, Mahesh Martinez te:12/21/22 1. Unresponsive episode [...] to obtain. He cannot recall having a feed blender and there is nothing in the computer [...] artery disease (I25.10: Atherosclerotic heart disease of [place] coronary artery without angina pectoris) 5. Hypertension [...] Obesity, unspecified) Extracted from: Title:Consult Note-neurology Author:Tobin GONZALEZ N ichole Date:12/21/22 The patient is a [...] artery disease (I25.10: Atherosclerotic heart disease of [place] coronary artery without angina pectoris) 5. Hypertension [...] functions and awareness) Patient was transferred from [facility] from [place] after an unwitnessed fall being found facedown. Patient was seen by the trauma services ,CT imaging of the head and chest demonstrated no traumatic injury. Patient at present is responsive and is denying any localized pain. Patient was described as, both at the extended care facility and at this facility, despite a sternal rub having no response. He became responsive when patient had an IO placed in his left proximal humerus to gain immediate access for institution of medications. His [place] Coma Scale increased from a 3 to an 11. Patient was not noted on presentation to be hypotensive nor hypoxic. Patient was not described as being hypotensive or hypoxic at the [facility] after being found at approximately 10 PM. [...] bradycardic when he was unresponsive at the [facility] facility) will observe for any hemodynamically significant tachycardia. Will obtain further history both from the [facility] facility in regards to a similar event that occurred 3 days prior where he was reported to have been immediately responsive and her daughter showed up in the room. Ordered: Communication Order EEG 2. Atrial fibrillation with slow ventricular response (I48.91: Unspecified atrial fibrillation) External pharmacy report suggest patient is on carvedilol, await confirmation of meds from the [facility]. We will hold carvedilol or any other agents that have negative chronotropic effects. Observe on telemetry Ordered: TSH With T4fr Reflex 3. History of seizures (Z87.898: Personal history of other specified conditions) Place on seizure precautions. Continue Keppra. Will obtain records from his recent hospitalization at [facility] to determine prior work-up and further past medical history. Obtain in light of above an EEG Ordered: EEG 4. Coronary artery disease (I25.10: Atherosclerotic heart disease of [place] coronary artery without angina pectoris) Patient did have an abnormal EKG with interventricular conduction delay, T wave abnormalities in V3 through V6 but we have no prior tracings to compare. In light of above we will cycle cardiac enzymes, observe on telemetry and if patient remains hospitalized through Thursday consider an echocardiogram. Obtain records from [place] which likely will include an ECG to determine baseline Ordered: Communication Order 5. Hypertension (I10: Essential (primary) hypertension) Await confirmation of medications from the [facility] and doses. We will avoid medications that had negative chronotropic effects. Monitor blood pressure 6. Hyperlipidemia (E78.5: Hyperlipidemia, unspecified) External pharmacy report suggest patient was on pravastatin await confirmation of meds 7. Diabetes (E11.9: Type 2 diabetes mellitus without complications) [facility] facility describes patient is having significant fluctuations in blood sugar. External pharmacy report suggest Basaglar, Trulicity, glyburide and metformin await confirmation of meds. Cover with Humalog sliding scale and observe for any 8. History of CHF (congestive heart failure) (Z86.79: Personal history of other diseases of the circulatory system) Per the [facility] while at [facility] last month. Will obtain records. It is [...] until further records can be obtained from [place]. Avoid nephrotoxins 10. Anemia (D64.9: Anemia, unspecified) Patient's hemoglobin of 11 is very similar to the last hemoglobin available at the [facility] from 24 October where it was 10.8. [...] based on examination and succussion with the [facility] staff that he is at baseline 14. History of COVID-19 (Z86.16: Personal history of COVID-19) Obtain records from his recent hospitalization at [facility]. Patient is having no respiratory symptoms, lungs [...] Left + Pelvis XR Shoulder Complete Left [facility]12-28-20[facility] Evaluation note* Encounter Date Diagnosis Assessment Notes [...] fracture: adult home care material was printed DGSE Other 12-14-2022 Note [id number]#1.00[facility]10-20-2022 [id number]#1.00[facility] 06-05-2022 [facility]06-21-2022 History of Present illness Narrative * 67-year-old [...] software was utilized to prepare this document. [facility] [address] DO Work Phone: Chief complaint Narrative - ReportedPatient here for EP consultation per Dr. Lee due to [facility] [facility] Work Phone: Evaluation + Plan note Future Appointments Appointment Date:04/02/2023 11:00:00 AM Scheduled Provider:Starr Oneal DO [facility] Future Appointments Appointment Date:03/26/2023 10:15:00 AM Scheduled Provider:Jaja Lee MD Location:[facility] Appointment Type:Cardiology Follow Up (FT) [facility] Future Appointments Appointment Date:06/25/2023 03:15:00 PM Scheduled Provider:Jaja Lee MD Location:[facility] App[facility]ment [facility]No assessment information available [facility] Work Phone: Evaluation note* Diagnosis Status post placement of implantable loop recorder Syncope and collapse documented in this encounter [facility] Work Phone: [phone] note* Diagnosis Status post placement of implantable loop recorder Syncope and collapse documented in this encounter [facility] Work Phone: [phone] note* Diagnosis Status post placement of implantable loop recorder Syncope and collapse documented in this encounter [facility] Work Phone: [phone] note* Diagnosis Syncope and collapse documented in this encounter [facility] Work Phone: [phone] note* Diagnosis Anticoagulation management encounter- Primary Encounter for therapeutic drug monitoring Abnormal EKG Nonspecific abnormal electrocardiogram (ECG) (EKG) Longstanding persistent atrial fibrillation (CMS/HCC) Primary hypertension Unspecified essential hypertension Palpitations Status post placement of implantable loop recorder BMI 34.0-34.9,adult Former smoker Personal history of tobacco use, presenting hazards to health documented in this encounter [facility] Work Phone: [phone] note* Diagnosis Presence of other cardiac implants and grafts Syncope and collapse documented in this encounter [facility] Work Phone: [phone] note* Diagnosis Status post placement of implantable loop recorder Syncope and collapse documented in this encounter [facility] Work Phone: [phone] note* Diagnosis Status post placement of implantable loop recorder Syncope and collapse documented in this encounter [facility] Work Phone: [phone] note* Diagnosis Abnormal EKG- Primary Nonspecific abnormal electrocardiogram (ECG) (EKG) Former smoker Personal history of tobacco use, presenting hazards to health Status post placement of implantable loop recorder Syncope and collapse Longstanding persistent atrial fibrillation (CMS/HCC) Anticoagulation management encounter Encounter for therapeutic drug monitoring Palpitations BMI 30.0-30.9,adult High risk medication use Bradycardia Other specified cardiac dysrhythmias documented in this encounter [facility] Work Phone: [phone] note* Diagnosis Status post placement of implantable loop recorder documented in this encounter [facility] Work Phone: [phone] note* Diagnosis Status post placement of implantable loop recorder Syncope and collapse documented in this encounter [facility] Work Phone: Evaluation note* Diagnosis Status post placement of implantable loop recorder Syncope and collapse documented in this encounter [facility] Work Phone: Evaluation note* Diagnosis Status post placement of implantable loop recorder Syncope and collapse documented in this encounter [facility] Work Phone: History general Narrative - Reported* Type Description Date Medical History htn Medical History DM Medical History hypercholesterolemia Medical History staph infection Medical History h/o atrial fibrillation Surgical History left knee arthroscopy Surgical History [facility] Hospitalization History see above DGSE Other Hospital course Narrative No data available for this section [facility] No data available for this section [facility] No data available for this section [facility] Discharge Instructions * Instructions* Machelle Rosario RN - 09/10/2019 GENERAL POST-OPERATIVE PATIENT INSTRUCTIONS FOLLOW-UP: Please make an appointment with your physician in {NUMBER:[id number]} {TIME PERIOD:9075}. Call your physician immediately if [...] to call your physician or the hospital butane compressor operator if you have any questions, and they will be glad to assist you. documented in this encounter History of Present Illness * Kristyn Nevarez, PT - 09/10/2019 2:08 PM EST Physical Therapy Facility/Department: [address] ORTHO/MED SURG Initial Assessment NAME: Otilio [...] of left knee replacement, Hyperlipidemia, Hypertension, and NV (myocardial infarction) (HCC). 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 transfer from [facility] for concern of left leg abscess/ necrotizing faciitis. Patient states he noticed an abscess on his left leg last which has progressed. He says the pain became worse which prompted his ED visit. At [facility] his [facility] scan was remarkable for large [...] floor. Trupti Cohen MD Internal Medicine Resident [facility] 09/09/2019 2:36 PM * Kathie Mckeon [...] Patient's name: Otilio Suarez Patient's account/billing number: [id number] Patient's Date of : 1955 Age: 63 [...] [P.O.:480; I.V.:474] Out: 1625 [Urine:1625] Net since admission:+6676 Patient Vitals for the past 96 hrs [...] PROPHYLAXIS: Stress ulcer: [] PPI Agent [] [id number] [] Sucralfate [x] Other:not indicated VTE: [] [...] resident, Department of Internal Medicine/ Critical care [facility]) 09/09/2019, 8:04 AM Associated attestation - Jeri Lion MD - 09/09/2019 7:19 PM EST Attending Physician Statement I have discussed the case of Otilio Suarez, including pertinent history and exam findings with the resident/fellow/TOUCH UP CARVER/PA. I have seen and examined the patient and the anderson elements of the encounter have been performed by me. I agree with the assessment, plan and orders as documented by the resident/fellow/TOUCH UP CARVER/PA With changes made to the note as [...] Villagomez OT - 09/08/2019 3:41 PM EST [facility] Occupational Therapy Not Seen Note DATE: 09/08/2019 [...] Patient's name: Otilio Suarez Patient's account/billing number: [id number] Patient's Date of : 1955 Age: 63 [...] findings: Complete Blood Count: Recent Labs 09/06/19222009/07/1945009/08/19 042 WBC 14.3* 14.6* 9.6 HGB 11.8* 11.6* [...] PROPHYLAXIS: Stress ulcer: [] PPI Agent [] Z1Moals [] Sucralfate [x] Other:not indicated VTE: [] [...] resident, Department of Internal Medicine/ Critical care [facility]) 09/08/2019, 12:20 PM Associated attestation - Jeri Lion MD - 09/08/2019 10:33 PM EST Attending Physician Statement I have discussed the case of Otilio Suarez, including pertinent history and exam findings with the resident/fellow/TOUCH UP CARVER/PA. I have seen and examined the patient and the anderson elements of the encounter have been performed by me. I agree with the assessment, plan and orders as documented by the resident/fellow/TOUCH UP CARVER/PA With changes made to the note as [...] and placed in patient chart. * Frances Moreno, - 09/08/2019 6:04 AM [...] Patient's name: Otilio Suarez Patient's account/billing number: [id number] Patient's Date of : 1955 Age: 63 [...] Date 09/07/19 0000 - 09/07/19 2359 Shift [id number] 24 Hour Total INTAKE P.O.(mL/kg/hr) 240(0.2) 240 [...] ABGs: No results found for: PHART, PH, NAP1YJG, PCO2, PO2ART, PO2, VBY0DUV, HCO3, BEART, BE, THGBART, THB, EBY3KHJ, L6QXJCFR, O2SAT, FIO2 Lactic Acid: Lab Results Component Value Date JESSIE NOT REPORTED 09/06/2019 DATA: Complete Blood Count: [...] No results for input(s): LABIRON, TIBC, FERRITIN, [id number], FOLATE, OCCULTBLD in the last 72 hours. [...] CRP 237.9 - Afebrile MSK/ ORTHO: n/a PT/OT/SPRAYING MACHINE OPERATOR: - Evaluation and treatment when applicable DISPO: [...] 9. Ulcer prophylaxis []? PPI Agent []? J3Lhvtf []? Sucralfate []? Other: 10. Glycemic control high dose sliding scale 11. Spontaneous breathing trial na 12. Bowel regimen/urine output adequate 13. Indwelling catheter/lines iv 14. De-escalation none Sanjay Reilly M.D. Department of Internal Medicine/ Critical care [facility], [facility]) 09/07/2019, 6:03 PM Associated attestation - Jeri Lion MD - 09/07/2019 7:07 PM EST Attending Physician Statement I have discussed the case of Otilio Suarez, including pertinent history and exam findings with the resident/fellow/TOUCH UP CARVER/PA. I have seen and examined the patient and the anderson elements of the encounter have been performed by me. I agree with the assessment, plan and orders as documented by the resident/fellow/TOUCH UP CARVER/PA With changes made to the note as needed. Pt was seen during rounds. Review of Systems: In addition to the pertinent positives and negatives as stated within HPI and the review of systemsas documented in their notes, all other systems were reviewed when able to and are reported negative. Please see my note also Jeri Lion 09/07/2019 7:07 PM * Dariela Steinberg, LISA - 09/07/2019 11:40 AM EST Inpatient Diabetes [...] Type 2 Diabetes _x__ Be safe with Powell teaching sheet / [facility] Disposal of Household Generated Sharps _x__ Type [...] 14.3* Intake/Output Summary (Last 24 hours) at 09/06/20196 Last data filed at 09/06/2019 2130 Gross [...] Coronary atherosclerosis of unspecified type of vessel, [place] or graft History of alcohol abuse Nondependent [...] FoundDocuments on File Type Date Recorded Patient Telecom Coordinator Expl anation Advance Directives and Living Will Power of Color Grinder Latest Code Status on File Code Status Date Activated Date Inactivated Comments Full Code 09/06/2019 5:58 PM Advance Directive Response Recorded Date/ Time Advance Directives No September 5:47pm Documents on File Type Date Recorded Patient Telecom Coordinator Expl anation Healthcare Power of Atty 04/06/2023 9:33 AM Healthcare Power of Atty 04/06/2023 Documents on File Type Date Recorded Patient Telecom Coordinator Expl anation Healthcare Power of Atty 04/06/2023 [...] 12 Lead Geovani Mack MD [address] [facility] [address] [place] [address] Referral ID Status Reason Start Date Expiration Date V isits Requested Visits Authorized [id number] Authorized 10/21/2023 10/20/2024 1 1 Specialty Diagnoses / Procedures Referred By Contac t Referred To Contact Cardiology Diagnoses Presence of other cardiac implants and grafts Syncope and collapse Procedures Cardiac device check - In Clinic Geovani Mack MD [address] [facility], [address] [address] Referral ID Status Reason Start Date Expiration Date Visits Requested Visits Authorized [id number] Pending Review Perform Procedure 06/24/2023 12/21/2023 1 1 Specialty Diagnoses / Procedures Referred By Contac t Referred To Contact Diagnoses Abnormal EKG Procedures ECG 12 Lead Geovani Mack MD [address] [facility], [address] [address] Referral ID Status Reason Start Date Expiration Date V isits Requested Visits Authorized [id number] Pending Review 09/16/2023 09/15/2024 1 1 Specialty Diagnoses / Procedures Referred By Contac t Referred To Contact Cardiology Diagnoses Status post placement of implantable loop recorder Procedures Cardiac Device Check - In Clinic Geovani Mack MD [address] [facility], [address] [address] Referral ID Status Reason Start Date Expiration Date Visits Requested Visits Authorized [id number] Pending Review Perform Procedure 3 09/15/2024 52 52 Specialty Diagnoses / Procedures Referred By Contac t Referred To Contact Cardiology Diagnoses Status post placement of implantable loop recorder Syncope and collapse Procedures Cardiac Device Check - Remote Geovani Mack MD [address] [facility], [address] [address] Referral ID Status Reason Start Date Expiration Date Visits Requested Visits Authorized [id number] Pending Review Perform Procedure 3 01/11/2024 52 52 Additional Source Comments Reason for Visit (unrecogniz ed section and content) Status Reason Specialty Diagnoses / Procedures Referre d By Contact Referred To Contact Diagnoses Septic shock (HCC) Septic Shock 2nd to Left Thigh abscess Amisha, Jeri, MD [address] [address] [place] [address] [facility] Specialty Diagnoses / Procedures Referred By Contac t Referred To Contact Cardiology Diagnoses Status post placement of implantable loop recorder Syncope and collapse Procedures Cardiac Device Check - Remote Geovani Mack MD [address] [facility], [address] [place] [address] Referral ID Status Reason Start Date Expiration Date Visits Requested Visits Authorized [id number] Pending Review Perform Procedure 01/11/2024 52 52 Reason Comments Other [facility] MACK LOOP RECORD ER IMPLANT/ICD-10 Syncope and collapse Reason Comments Follow-up 4 month [facility] Specialty Diagnoses / Procedures Referred By Contac t Referred To Contact Cardiology Diagnoses Presence of other cardiac implants and grafts Syncope and collapse Procedures Cardiac device check - In Clinic Geovani Mack MD [address] [facility], [address] [address] Referral ID Status Reason Start Date Expiration Date Visits Requested Visits Authorized [id number] Pending Review Perform Procedure 06/24/2023 12/21/2023 1 1 Referral ID Status Reason Start Date Expiration Date V isits Requested Visits Authorized [id number] Closed Perform Procedure 07/15/2023 01/11/2024 52 52 Reason Comments Follow-up 4 weeks Specialty Diagnoses / Procedures Referred By Contac t Referred To Contact Diagnoses Syncope and collapse Procedures ECG 12 Lead Geovani Mack MD [address] [facility], [address] [address] Referral ID Status Reason Start Date Expiration Date V isits Requested Visits Authorized [id number] Authorized 10/21/2023 10/20/2024 1 1 Specialty Diagnoses / Procedures Referred By Contac t Referred To Contact Cardiology Diagnoses Status post placement of implantable loop recorder Procedures Cardiac Device Check - In Clinic Geovani Mack MD [address] [facility], [facility] [address] [place] [address] Referral ID Status Reason Start Date Expiration Date Visits Requested Visits Authorized [id number] Pending Review Perform Procedure 3 09/15/2024 52 52 Specialty Diagnoses / Procedures Referred By Kathy farris Referred To Contact Cardiology Diagnoses Status post placement of implantable loop recorder Syncope and collapse Procedures Cardiac Device Check - Remote Geovani Mack MD [address] [facility] [address] [place] [address] (unrecognized sect ion and content) No Status Records FoundNo Status Records FoundNo Status Records FoundNo Status Records FoundNo Status Records FoundNo Status Records FoundNo Status Records FoundNo Status Records FoundNo Status Records FoundNo Status Records Found INFORMATION SOURCE (unrecogn ized section and content) DATE CREATED AUTHOR 09/13/2019 [facility] DATE CREATED AUTHOR AUTHOR'S ORGANIZ ATION 10/04/2022 [facility] DATE CREATED AUTHOR AUTHOR'S ORGANIZ ATION 02/14/2023 [facility] DATE CREATED AUTHOR AUTHOR'S ORGANIZ ATION 03/25/2023 [facility] DATE CREATED AUTHOR AUTHOR'S ORGANIZ ATION 05/07/2023 [facility] DATE CREATED AUTHOR AUTHOR'S ORGANIZ ATION 06/25/2023 [facility] DATE CREATED AUTHOR AUTHOR'S ORGANIZ ATION 10/17/2023 [facility] DATE CREATED AUTHOR AUTHOR'S ORGANIZ ATION 10/23/[address] [facility] DATE CREATED AUTHOR AUTHOR'S ORGANIZ ATION 12/28/2023 [facility] DATE CREATED AUTHOR AUTHOR'S ORGANIZ ATION 12/31/2023 [facility] Care Teams (unrecognized sec tion and content) Team Status: Inactive Member Role Status Dates Bernie Guerra MD Primary Care Provider Active Ana Norris APRN Attending Provider Active Team Status: Active Member Role Status Dates Bernie Guerra MD Primary Care Provider Active Counseling Center Manager Relationship Specialty Start Date End Date Hermilo Thorne MD [address] [place] [address] [address] [place] [address] PCP - General 03/24/23 Counseling Center Manager Relationship Specialty Start Date End Date Hermilo Thorne MD [address] [place] [address] PCP - General 03/24/23 Counseling Center Manager Relationship Specialty Start Date End Date Hermilo Thorne MD [address] [place] [address] PCP - General 03/24/23 Counseling Center Manager Relationship Specialty Start Date End Date Hermilo Thorne MD [address] [place] [address] PCP - General 03/24/23 Counseling Center Manager Relationship Specialty Start Date End Date Hermilo Thorne MD [address] [place] [address] PCP - General 03/24/23 Counseling Center Manager Relationship Specialty Start Date End Date Hermilo Thorne MD [address] [place] [address] PCP - General 03/24/23 Geovani Mack MD [address] [facility] [address] [place] [address] Consulting Physician Cardiology 09/16/23 Counseling Center Manager Relationship Specialty Start Date End Date Hermilo Thorne MD [address] [place] [address] PCP - General 03/24/23 Geovani Mack MD [address] [facility], [address] [place] [address] Consulting Physician Cardiology 09/16/23 Counseling Center Manager Relationship Specialty Start Date End Date Hermilo Thorne MD [address] [facility] [address] [place] [address] PCP - General 03/24/23 Geovani Mack MD [address] [facility], [address] [place] [address] Consulting Physician Cardiology 09/16/23 Counseling Center Manager Relationship Specialty Start Date End Date Hermilo Thorne MD [address] [address] PCP - General 03/24/23 Geovani Mack MD [address] [facility], [facility] [address] [place] [address] Consulting Physician Cardiology 09/16/23 Nelda Jc, computer information systems professorGuyline Operator 10/15/23 Counseling Center Manager Relationship Specialty Start Date End Date Hermilo Thorne MD [address] [address] PCP - General 03/24/23 Geovani Mack MD [address] [facility], [facility] [address] [place] [address] Consulting Physician Cardiology 09/16/23 Nelda Jc, computer information systems professorGuyline Operator 10/15/23 Counseling Center Manager Relationship Specialty Start Date End Date Bernie Guerra MD [address] [place] [address] PCP - General Pediatrics 03/16/23 Counseling Center Manager Relationship Specialty Start Date End Date Hermilo Thorne MD [address] [place] [address] PCP - General 03/24/23 Geovani Mack MD [address] [place] [address] Consulting Physician Cardiology 09/16/23 Counseling Center Manager Relationship Specialty Start Date End Date Hermilo Thorne MD [address] [place] [address] PCP - General 03/24/23 Geovani Mack MD [address] [facility] [address] [place] [address] Consulting Physician Cardiology 09/16/23 Counseling Center Manager Relationship Specialty Start Date End Date Hermilo Thorne MD [address] [facility] [address] [place] [address] PCP - General 03/24/23 Geovani Mack MD [address] [facility] [address] [place] [address] Consulting Physician Cardiology 09/16/23 Goals (unrecognized section [...] BE BASED ON THE PRIMARY CLINICAL RECORDS. [facility]. provides no warranty or guarantee of the accuracy or completeness of information in this document.
[2024-01-06 07:52] LABS: Basophils Absolute Auto 0.1 10^3/uL (0.0-0.1); Basophils Percent Auto 0.9 % (0.2-2.0); Eosinophils Absolute Auto 0.3 10^3/uL (0.0-0.7); Eosinophils Percent Auto 5.9 % (0.9-7.0); Hematocrit 36.4 % (42.0-54.0); Hemoglobin 11.2 g/dL (14.0-18.0); Immature Granulocytes Abs Auto 0.01 10^3/uL (0.00-0.03); Immature Granulocytes Pct Auto 0.2 % (0.0-0.5); Lymphocytes Absolute Auto 2.6 10^3/uL (1.2-3.8); Mean Corpuscular HGB Conc 30.8 g/dL (29.9-35.2); Mean Corpuscular Hemoglobin 28.5 pg (25.9-34.0); Mean Corpuscular Volume 92.6 fL (80.0-94.0); Mean Platelet Volume 10.7 fL (9.5-13.5); Monocytes Absolute Auto 0.4 10^3/uL (0.3-0.8); Monocytes Percent Auto 7.6 % (1.7-12.0); Neutrophils Absolute Auto 2.4 10^3/uL (1.4-6.5); Neutrophils Percent Auto 41.4 % (43.0-75.0); Platelet Count 249 10^3/uL (150-450); Red Blood Count 3.93 10^6/uL (4.70-6.10); Red Cell Distribution Width 13.8 % (11.0-15.0); White Blood Count 5.8 10^3/uL (4.0-11.0)
[2024-01-06 08:03] LABS: Anion Gap 14.4; Carbon Dioxide 25.4 mmol/L (21.0-32.0); Chloride 106 mmol/L (98-107); Estimated GFR (African America >60 (>=60); Glucose 214 mg/dL (74-106); Potassium 3.8 mmol/L (3.5-5.1); Sodium 142 mmol/L (136-145)
[2024-01-06 08:04] LABS: BUN Creatinine Ratio 17.7; Calcium 8.4 mg/dL (8.5-10.1); Estimated GFR (Non-African Ame >60 (>=60)
== END 2024-01-06 02:36 | disposition home or self-care (01) ==
LOC: LAB 02:35
PROVIDERS: PCP Family Medicine; Visit Provider Nurse Practitioner Family
DX: E11.43 Type 2 diabetes mellitus with diabetic autonomic (poly)neuropathy (principal); I50.43 Acute on chronic combined systolic (congestive) and diastolic (congestive) heart failure
CPT/HCPCS: 36415; 80048; 85025

== ENCOUNTER 2024-02-10 02:32 | Outpatient (REF) | payer MEDICARE, MEDICAID, SELFPAY ==
--- OUTSIDE RECORDS SUMMARY | 2024-02-10 02:39 | XMS_ITS | CCD ---
Author Organization [facility] Care Team Providers Care Steel Cutter Name Role Phone Bernie Guerra Primary Care Provider [phone] JERI LION Admitting Unavailable ROSALIE WILDER Referring [...] GIBBS Primary Care Unavailable JEM, DR MARIBEL Samson Consulting UnavailDR BERNIE Ken V Consulting Unavailable [...] Unavailable CHARLIE, DR GIBBS Primary Care Unavailable LILIA GORDON Consulting Unavailable CARLITOS, JULIAN Consulting Unavailable LUJAN, [...] CORDERO Consulting Unavailable CARLITOS, JULIAN Consulting Unavailable ANTHONY, SANDRA Consulting Unavailable NADEEM, SANDRA Consulting Unavailable MAREN, DR LILIA Valdez Consulting Unavailable NADERER, DR CHRISTIE Arteaga Attending Unavailable NADERER, DR CHRISTIE Arteaga Admitting Unavailable MATI, DR AKHTAR Primary Care Unavailable NADERER, DR CHRISTIE Arteaga Consulting Unavailable PAY ., DR CORDERO Consulting Unavailable CLARIBELCHNY ., KAYLEE LAU Consulting UnavailSARAH Pinto Consulting Unavailable KIKI ORTEGA Consulting Unavailable CANDI ALVAREZ Consulting Unavailable LUJAN, ERIC Consulting Unavailable GUERO, FRIDA Consulting Unavailable OROZCO, [place] Consulting Unavailable NEWATIA, VALE Consulting Unavailable Mati, Hermilo Lewis Unavailable Mati, Dr. Hermilo Greco Primary Care Unavaila ble Martina, Dr. Geovani Posada Attending Unavailab le Mati, Dr. Hermilo Greco Primary Care Unavaila ble Mack, Dr. Geovani Posada Attending Unavailab le Martina, Dr. Gevoani Posada Referring Unavailab le Mati, Dr. Hermilo Greco Primary Care Unavaila ble Martina, Dr. Geovani Posada Admitting Unavailab le Mack, Dr. Geovani Posada Attending Unavailab le Mati LEMONS, Hermilo Greco Primary Care Provider Hermilo Thorne MD Primary Care Provider Mack MD, Geovani N Unavailable ELSI MACKTO Attending Unavailable Austin, Dr. Hermilo Greco Primary Care Unavaila ble GEOVANI MACK Attending Unavailable JAJA LEE Referring Unavailable Austin, Dr. Hermilo Greco Primary Care Unavaila phyllis Jc RN, Nelda Unavailable Unavailable Charlie LEMONS, Bernie Arteaga Primary Care Provider Geovani Mack MD Unavailable Christi AUTHORIZATION MANAGER-SOCIAL SERVICES COORDINATORMaine Unavailable MARTINA GEOVANI James Attending Unavailable MATI, RUGEN MABALAY Primary Care Unavailable MACK, GEOVANI N Attending Unavailable MATI, RUGEN MABALAY Primary Care Unavailable MACK, GEOVANI N Referring Unavailable MACK, GEOVANI N Attending Unavailable MATI, RUGEN MABALAY Primary Care Unavailable MAINE BARRAZA Attending Unavaila ble MATI, RUGEN MABALAY Primary Care Unavailable CARRIE KEN Attending Unavailable BERNIE GUERRA Primary Care Unavailable BERNIE GUERRA Primary Care Unavailable HARMAN CUNNINGHAM Attending Unavailable BERNIE GUERRA Primary Care Unavailable HARMAN CUNNINGHAM Attending Unavailable BERNIE GUERRA Primary Care Unavailable AHMED, IRFDANIELA Referring Unavailable ESTHER LÓPEZ Referring Unavailable MATI, RUGEN [...] MATI, RUGEN MABALAY Primary Care Unavailable MARIBELESTHER M Referring Unavailable MATI, RUGEN MABALAY Primary Care Unavailable MACK, GEOVANI N Referring Unavailable MATI, RUGEN MABALAY Primary Care Unavailable MARIBELESTHER M Referring Unavailable MATI, RUGEN MABALAY Primary [...] Unavailable MATI, RUGEN MABALAY Primary Care Unavailable MANDO JIMENEZ Attending Unavailable MANDO JIMENEZ Bushra L Admitting Unavailable NONE, XXXX Referring Unavailable NONE, XXXX Referring Unavailable Jaja Lee Attending Unavaila ble NONE, XXXX Referring Unavailable Jaja Lee Attending Unavaila ble John Lyn S Attending Unavailable John Lyn S Admitting Unavailable Mahesh LEMA Consulting Unavailable Mahesh LEMA Consulting Unavailable Mahesh LEMA Consulting Unavailable Tita Albright Attending Unavailable Jered Chavis Attending Unavailable Harjit Doan Admitting Unavailable NONE, XXXX Referring Unavailable Jaja Lee Attending Unavaila ble MANDO JIMENEZ Bushra L Attending Unavailable TONY SOCIAL SERVICES COORDINATOR Bushra L Admitting Unavailable NONE, XXXX Referring Unavailable Allergies Allergy Classification Reported Allergen(s) Allergy Type Date of Onset Reaction(s) Facility (3 sources) Penicillins; Translations: [PENICILLINS] Propensity to adverse reactions to drug 8 [place], [place] (20 sources) HYDROmorphone; Translations: [hydromorphone] Drug Allergy 2 Unknown (qualifier value), Unknown [facility] (20 sources) Morphine; Translations: [morphine] Drug Allergy 2 Unknown (qualifier value), Unknown [facility] (10 sources) Penicillin; Translations: [penicillin] Drug Allergy 2 Unknown (qualifier value) [facility] (2 sources) HYDROmorphone; Translations: [Dilaudid] Drug Allergy [address] [facility] (1 source) Morphine Drug Allergy [address] [facility] (1 source) Penicillins; Translations: [Penicillins] Allergy to drug (finding) [place] [address] DO Work Phone: (1 source) Morphine Derivatives; Translations: [Morphine Derivatives] Allergy to drug (finding) [place] [address] DO Work Phone: (20 sources) Penicillins Drug Intolerance 8 Unknown [facility] Work Phone: (1 source) Penicillins Drug Intolerance 8 [facility] (1 source) ALLERGIES NOT ON FILE; Translations: [ALLERGIES NOT ON FILE] Propensity to adverse reactions (disorder) [facility] Medications Current Medications Medication Drug Class(es) Dates Sig (Normalized) Sig (Original) acetaminophen 325 mg oral tablet (20 sources) Start: 12-25-2022 acetaminophen (Tylenol) 325 MG tablet every 4 (four) hours. 0 12/25/2022 Active Start: 12-25-2022 take 2 tablets by [facility] every six hours as needed for [...] Take 1 tablet (81 mg) by mouth. 12/25/2022 Active Aspirin Low Dose 81 MG [...] tablet (10 mg) by mouth once daily. Active take 1 capsule by mouth once cet irizine (ZyrTEC) 10 mg capsule Take 1 capsule (10 mg) by mouth 1 time. 0 Active cholecalciferol 0.025 mg oral tablet (20 sources) Vitamin D Start: 01-24-2023 take 1 tablet by mouth once daily cholecalciferol (Vitamin D-3) 25 MCG (1000 UT) tablet Take 1 tablet (25 mcg) by mouth once daily. 01/24/2023 Active Start: 01-24-2023 take 1 tablet [...] in dextrose 5 % 50 mL IVPB clobetasol propionate 0.5 mg/ml topical cream (1 source) Corticosteroid Start: 12-28-2023 clobetasol (Temovate) 0.05 % cream 12/28/2023 Active clopidogrel 75 mg oral tablet (4 sources) [...] 3 TIMES DAILY PRN, Muscle spasms, Starting 09/09/19 at 2347 Cyclobenzaprine HCl Active diphenhydrAMINE hydrochloride 50 mg oral capsule (2 sources) Histamine-1 Receptor Antagonist take 1 capsule by mouth every six hours as needed diphenhydrAMINE (BENADryl) 50 mg capsule Take 1 capsule (50 mg) by mouth every 6 hours if needed for itching. Active End: 10-21-2023 take 1 tablet by mouth [...] (100 mg) by mouth twice a day. Active docusate sodium 50 mg / sennosides, correction 8.6 mg oral tablet (1 source) Start: 09-09-20 sennosides-docusate sodium (SENOKOT-S) 8.6-50 MG tablet 2 tablet dofetilide 0.125 mg oral capsule (19 sources) Antiarrhythmic Start: 10-12-19 End: 04-09-20 24 take 1 capsule by mouth every twelve hours dofetilide (Tikosyn) 125 mcg capsule Indications: Typical atrial flutter (Multi) Take 1 capsule (125 mcg) by mouth every 12 hours. 60 capsule 5 10/12/2023 04/09/2024 Active donepezil hydrochloride 10 mg oral tablet (1 source) Start: 02-12-20 take 1 tablet by mouth once daily at bedtime Aricept 10 mg Tab 10 mg = 1 tab(s), Oral, Once a day (at bedtime), # 30 tab(s), Refills(s) 0 Start Date: 02/11/23 Status: Ordered doxycycline hyclate 100 mg oral capsule (1 source) Tetracycline-class Drug Start: 01-11-20 doxycycline (Vibramycin) 100 mg capsule 01/11/2024 Active 0.5 ml dulaglutide 1.5 mg/ml auto-injector (7 sources) GLP-1 Receptor Agonist Start: 12-22-19 Trulicity Pen 0.75 mg/0.5 mL subcutaneous solution 0.75 mg, SubCutaneous, Thursday, Refills(s) 0 Start Date: 12/21/22 Status: Ordered folic acid 1 mg oral tablet (2 sources) Start: 09-11-20 take 1 tablet by mouth once daily [...] mg) by mouth once daily as needed. 12/21/2022 Active gabapentin 100 mg oral capsule [...] tab Oral Active take 2 tablets by ia ut twice daily at mealtime glyBURIDE (DIABETA) 5 [...] bedtime. Take as directed per insulin instructions. Active inject 44 [IU] by bauñelos bcutaneous injection once daily at bedtime insulin glargine,hum.rec.anlog (BASAGLAR KWIKPEN U-100 INSULIN SUBQ) Inject 44 Units under the skin once daily at bedtime. Take as directed per insulin instructions. 0 Active insulin glargine ,hum.rec.anlog (BASAGLAR FLORENTINPEN U-100 INSULIN SUBQ) Inject under the skin. [...] mg) by mouth 2 times a day. 08/27/2023 Active Start: 02-13-2023 take 1 tablet by nadya th twice daily levETIRAcetam 750 mg oral tablet, dispersible 750 mg = 1 tab(s), Oral, BID, Refills(s) 0 Start Date: 02/13/23 Status: Ordered Start: 12-25-2022 take 3 tablets by [facility] daily Keppra 250 mg Tab 750 mg = 3 tab(s), Oral, BID, Refills(s) 0 Start Date: 12/25/22 Status: Ordered take 1 tablet by nadya th twice daily Keppra 750 MG Oral Tablet [...] tablet (5 mg) by mouth once daily. Active loratadine 10 mg oral tablet (20 sources) Start: 12-22-19 End: 09-16-20 take 1 tablet by mouth once daily as needed loratadine 10 mg Tab 10 mg = 1 tab(s), Oral, Daily, PRN Itching, # 90 tab(s), Refills(s) 0 Start Date: 02/13/23 Status: Ordered LORazepam 1 mg oral tablet (1 source) Benzodiazepine take 1 tablet by mouth every six hours as needed LORazepam (Ativan) 1 mg tablet Take 1 tablet (1 mg) by mouth every 6 hours if needed for anxiety. Active magnesium hydroxide 80 mg/ml oral suspension (1 source) Start: 09-06-20 magnesium hydroxide (MILK OF MAGNESIA) 400 MG/5ML suspension 30 mL magnesium oxide 400 mg oral tablet (20 sources) Start: 01-25-20 take 1 tablet by mouth once daily magnesium oxide (Mag-Ox) 400 mg (241.3 mg magnesium) tablet Take 1 tablet (400 mg) by mouth once daily. 01/24/2023 Active Megestrol (1 source) Progestin Megestrol Acetat e Active modified 24 hr metFORMIN hydrochloride 1000 mg extended release oral tablet (20 sources) Biguanide Start: 01-27-20 take 1 tablet by mouth twice daily at mealtime metFORMIN, MOD, (Glumetza) 1,000 mg 24 hr tablet Take 1 tablet (1,000 mg) by mouth 2 times a day with meals. 0 01/26/2023 Active Start: 01-24-2023 [facility] 1000 mg oral tablet, extended release 1,000 mg = 1 tab(s), Oral, BID, # 60 tab(s), Refills(s) 0 Start Date: 01/24/23 Status: Ordered Start: 08-04-2022 metFORMIN (Glu cophage) 1000 MG tablet Take 500 mg by mouth in the morning and 500 mg in the evening. Take with meals. 0 08/04/2022 Active take 2 tablets by [facility] twice daily at mealtime metFORMIN XR (Glucophage-XR) 500 mg 24 hr tablet Take 2 tablets (1,000 mg) by mouth 2 times a day with meals. Do not crush, chew, or split. Active take 2 tablets by [facility] twice daily metFORMIN HCl ER 500 [...] mg tablet Indications: Longstanding persistent atrial fibrillation (Multi) Take 1 tablet (25 mg) by mouth 2 times a day. 60 tablet 11 09/16/2023 09/15/2024 Active Start: 09-10-2019 take 25 mg by mouth twice waldo y 25 mg, Oral, 2 TIMES DAILY, First dose on 09/10/19 at 0015 midodrine hydrochloride 5 mg oral tablet (20 sources) alpha-Adrenergic Agonist Start: 02-14-2023 take 1 tablet by mouth three times daily midodrine (Proamatine) 5 mg tablet Take 1 tablet (5 mg) by mouth 3 times a day. 02/14/2023 Active Start: 02-14-2023 take 1 tablet by [facility] twice daily midodrine 5 mg Tab 5 mg = 1 tab(s), Oral, BID, # 60 tab(s), Refills(s) 0 Start Date: 02/14/23 Status: Ordered mirtazapine 30 mg oral tablet (20 sources) Start: 09-10-2023 take 1 tablet by mouth once daily at bedtime mirtazapine (Remeron) 30 mg tablet Take 1 tablet (30 mg) by mouth once daily at bedtime. 09/10/2023 Active take 1 tablet by mouth at bedtim e mirtazapine (Remeron) 15 MG tablet Take 15 mg by mouth at bedtime. 0 Active take 1 tablet by nadya once daily in the evening Remeron 30 MG Oral Tablet TAKE 1 TABLET DAILY IN THE EVENING. Quantity: 0 Refills: 0 Ordered: 24-Mar-2023 DO Active Multiple Vitamins-Minerals (THERAPEUTIC MULTIVITAMIN-MINERALS) tablet (1 source) Start: 09-11-2019 End: 10-11-2019 take 1 tablet by mouth once daily Multiple Vitamins-Minerals (THERAPEUTIC MULTIVITAMIN-MINERALS) tablet Take 1 tablet by mouth daily 30 tablet 2 09/11/2019 10/11/2019 Active mupirocin 0.02 mg/mg topical ointment (1 source) RNA Synthetase Inhibitor Antibacterial Start: 12-20-2023 mupirocin (Bactroban) 2 % ointment 12/20/2023 Active nitroglycerin 0.4 mg sublingual tablet (20 sources) Nitrate Vasodilator Start: 03-29-2021 nitroglycerin (Nitrostat) 0.[address] 1 tablet (0.4 mg) under the tongue every 5 minutes if needed for chest pain. 03/29/2021 Active Nitroglycerin 0. 3 MG Sublingual Active omeprazole 20 mg delayed release oral capsule (20 sources) Proton Pump Inhibitor Start: 06-21-2018 take 1 capsule by mouth once daily before mealtime omeprazole (PriLOSEC) [address] capsule Take 1 capsule (20 mg) by mouth once daily in the morning. Take before meals. 06/21/2018 Active 2 ml ondansetron 2 mg/ml injection (1 source) Serotonin-3 Receptor Antagonist Start: 09-06-2019 ondansetron (ZOFRAN) injection 4 mg oxyCODONE hydrochloride 5 mg oral tablet (1 source) Opioid Agonist Start: 09-08-2019 oxyCODONE (ROXICODONE) immediate release tablet 5 mg polyethylene glycol [id number] [id number] mg powder for oral solution (20 sources) Osmotic Laxative Start: 08-20-2022 take 17 g by mouth every twenty-four hours as needed polyethylene glycol (Miralax) 17 gram/dose powder Take 17 g by mouth once daily as needed. 08/20/2022 Active Start: 09-09-2019 End: 10-10-2019 take [...] For 7 days 0 10/21/2023 10/27/2023 Active risperiDONE 0.5 mg oral tablet (1 source) Atypical Antipsychotic take 1 tablet by mouth twice daily risperiDONE (RisperDAL) 0.5 mg tablet Take 1 tablet (0.5 mg) by mouth 2 times a day. Active sennosides, CORRECTION (1 source) Senokot Active sodium chloride 0.154 [...] atrial fibrillation; Translations: [Atrial fibrillation] Onset: 8 Resolved: 4 Chronic Cardiac dysrhythmias (2 sources) Typical atrial flutter; [...] Translations: [Coronary atherosclerosis] Onset: 5 09-09-2019 Chronic Coronary atherosclerosis and other heart disease (20 sources) Presence of coronary angioplasty implant and graft; Translations: [Patient post percutaneous transluminal coronary angioplasty] Onset: 9 09-16-2023 Episodic Deficiency and other anemia (3 sources) Anemia; [...] source) Psychophysiologic insomnia; Translations: [Psychophysiologic insomnia] Chronic Nonspecific chest pain (2 sources) Other chest pain; Translations: [Chest pain, unspecified] Onset: 4 Episodic Nutritional deficiencies (1 source) Moderate protein-calorie malnutrition; Translations: [MODERATE PROTEIN-CALORIE MLNUTRIT] Onset: 3 Chronic Nutritional deficiencies (2 sources) Deficiency of macronutrients; Translations: [Mild protein-calorie malnutrition] Onset: 9 09-09-2019 Episodic Osteoarthritis (20 sources) Osteoarthritis; Translations: [Unspecified osteoarthritis, unspecified site] Onset: 3 09-16-2023 Chronic Other aftercare (1 source) Long-term current use of drug therapy; Translations: [Other prison (current) drug therapy] Onset: 3 Episodic Other aftercare (1 source) longterm (current) use of insulin; Translations: [MAMMOGRAPHY TECHNICIAN CURRENT USE OF INSULIN] Onset: 3 Episodic Other aftercare (1 source) longterm (current) use of antithrombotics/antipla telets; Translations: [PRISON ANTITHROMBOT/ANTIPLATLE TS] Onset: 3 Episodic Other aftercare (1 source) longterm (current) use of aspirin; Translations: [PRISON CURRENT USE OF ASPIRIN] Onset: 3 Episodic Other aftercare (2 sources) Patient encounter status; Translations: [Encounter for therapeutic drug level monitoring] 09-16-2023 Episodic Other aftercare (1 source) Taking high risk medication; Translations: [Other prison (current) drug therapy] 10-21-2023 Episodic Other and [...] and ureter, unspecified] Onset: 3 Episodic Other endocrine disorders (1 source) Hypoglycemia, unspecified; Translations: [Hypoglycemia, unspecified] Onset: 4 Chronic Other inflammatory condition of skin (1 source) Bullous pemphigoid; Translations: [Bullous pemphigoid] 01-20-2024 Chronic Other injuries and conditions due to external [...] AFFECT RT DOMINANT SIDE] Onset: 2 Chronic Rachel-; endo-; and myocarditis; cardiomyopathy (except that caused by tuberculosis or sexually transmitted disease) (3 sources) Cardiomyopathy; Translations: [Other cardiomyopathies] Onset: 4 01-20-2024 Chronic Peripheral and visceral atherosclerosis (20 sources) [...] AWARENESS] Onset: 3 Episodic Residual codes; unclassified (3 sources) Altered mental status, unspecified; Translations: [ALTERED MENTAL [...] OF DZ CLASS ELSW] Onset: 09-03-2022 Episodic Cardiac dysrhythmias (20 sources) Bradycardia, unspecified; Translations: [Sinus bradycardia] Onset: 01-21-2023 Episodic Deficiency and other anemia (20 sources) [...] 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] Onset: 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 09-10-2019 Episodic Open wounds of head; neck; and trunk (1 source) Laceration without foreign body of right eyelid and periocular area, initial encounter; Translations: [LAC NO FB RT EYELID PERIOCULAR INIT] Onset: 10-09-2022 Episodic Other aftercare (3 sources) Encounter for therapeutic drug level monitoring; Translations: [ENC THERAPEUTC DRUG LEVL MONITORING] Onset: 02-14-2023 Episodic Other aftercare (3 sources) Other radiosonde specialist (current) drug therapy; Translations: [OTH PRISON CURRENT DRUG THERAPY] Onset: 01-21-2023 Episodic Other aftercare (3 sources) i&c tech (current) use of anticoagulants; Translations: [MAMMOGRAPHY TECHNICIAN CURRNT USE ANTICOAGULANTS] Onset: 01-21-2023 Episodic Other aftercare (1 source) i&c tech (current) use of oral hypoglycemic drugs; Translations: [MAMMOGRAPHY TECHNICIAN USE ORAL HYPOGLYCEMIC DX] Onset: 10-14-2022 Episodic [...] Test Name Value Interpretation Reference Range Facility Heart and Vascular Office/Cl in Noteon 02-07-2024 Heart and Vascular Office/Clinic Note Chief Complaint here for 6 month f/u PAF History of Present Illness Otilio Suarez is a 68-year-old male presents for evaluation of multiple medical concerns. He is accompanied by an adult female. The patient reports feeling generally satisfactory with the loop monitor's placement, a sentiment he consistently expresses regarding its positioning. He experienced a fall on the night of 12/19/2023, resulting in mild rib pain. However, the discomfort is not indicative of cardiac or chest pain. The patient's blood pressure management has been satisfactory. However, despite the prescribed medication, the patient's blood pressure remains elevated, exceeding [address] Mack scheduled an appointment for him in 10/2023, where it was discovered that his blood pressure monitoring device indicated some irregularities. Following a 3-day hospital stay, he underwent a cardioversion to stabilize his blood pressure and manage his medication regimen, Tikosyn. Dr. Mack has decided to postpone the consideration of a pacemaker until his blood pressure stabilizes. However, he remains open to the possibility for a pacemaker in the future, as his condition continues to improve. His medication list does not include an antiarrhythmic medication. He experienced 2 episodes of heart rate exceeding 240 beats per minute. The first episode lasted for 4 minutes, and the second for 8 minutes. These episodes were accompanied by fainting spells, which heightened concerns regarding the risk of falling. His most recent electrocardiogram was normal. The adult female indicates that during their last visit, they were discussing the possibility of scheduling follow-up appointments every 6 months, provided it was feasible. Review of Systems Constitutional: no fever, no sweats, no weakness Skin: no rash, no lesions, no bruising/petechiae ENMT: no sore throat, no congestion, no hoarseness Respiratory: no shortness of breath, no cough, no orthopnea, no wheezing Cardiovascular: no chest pain, no palpitations, no edema Gastrointestinal: no nausea, no vomiting, no diarrhea, no GI bleeding Genitourinary: no anuria/oliguria no hematuria Musculoskeletal: no back pain, no trauma Neurologic: no headache, no dizziness, no numbness, no weakness Psychiatric: no sleeping problems, no irritability, no anxiety/depression. Heme/Lymph: no bleeding tendency, no bruising tendency Allergy/Immunologic: no recurrent infections, no impaired immunity Additional ROS info: Except as noted in the above Review of Systems and in the History of Present Illness all other systems have been reviewed and are negative or noncontributory Physical Exam Vitals & Measurements HR: 55(Peripheral) BP: 142/90 SpO2: 94% HT: 73 in HT: 185 cm WT: 116 kg WT: 255.2 lb BMI: 33.89 General: alert, no acute distress Skin: warm, dry intact Head: atraumatic, normocephalic Neck: trachea midline, no JVD, no bruit Eye: normal conjunctiva, sclera clear ENMT: oral mucosa moist Cardiovascular: regular rate and rhythm, no murmur, normal peripheral perfusion Respiratory: lungs CTA, respirations non labored Chest wall: no deformity. Gastrointestinal: soft, non-distended, no tenderness, no guarding. Back: no tenderness, normal ROM, normal alignment. Extremities: no edema, no deformity, no trauma Neurological: oriented x 4, LOC appropriate for age, sensation equal & normal bilaterally, speech normal Psychiatric: cooperative, affect appropriate for age, normal judgement, normal psychiatric thoughts. Assessment/Plan Afib (I48.91: Unspecified atrial fibrillation) The patient's blood pressure measurements indicate slightly elevated levels, but overall, I do not see any immediate actions required at this time. Follow-up The patient will follow up in 6 months. ATTESTATION: Portions of this record may have been created with voice recognition artificial intelligence software, specifically [employer], [employer] and or [employer]. Substitutions may have occurred due to the inherent limitations of voice recognition and artificial intelligence software. Documentation services were performed after patient or guardian consented to allow [employer] to record this visit. COTY internal communications specialist and provider reviewed before signing. COTY: Cielo Patino Follow-up No qualifying data available Problem List/Past Medical History Ongoing A-fib CAD in [place] artery Chronic anemia Chronic GERD Dementia Diabetes Diastolic heart failure Hyperlipidemia Hypertension Obesity Peripheral neuropathy Seizure Type 2 diabetes mellitus Historical No qualifying data Procedure/Surgical History None of the following diagnostic imaging studies ordered: chest X-ray, CT, Ultrasound, MRI, PET, or nuclear medicine scans (ML). Medications acetaminophen 325 mg Tab, 650 mg= 2 tab(s), Oral, q6hr, PRN aspirin 81 mg Oral EC Tab, 81 mg= 1 tab(s), Oral, Daily cholecalciferol 10 (more content not included)... Normal [facility] Comment on above: Result Comment: Elec tronically Signed By: Zia LEMONS, Jaja Dash\.br\Date and Time Signed: 02/07/24 10:41 EDT\.br\Electronically Co-Signed By: Cielo Patino.br\Date and Time Co-Signed: 12/25/23 17:[address] HEAD WO CONTRASTon 2023 CT HEAD WO CONTRAST EXAMINATION: CT OF THE HEAD WITHOUT CONTRAST 01/18/2024 8:36 am TECHNIQUE: CT of the head was performed without the administration of intravenous contrast. Automated exposure control, iterative reconstruction, and/or weight based adjustment of the mA/kV was utilized to reduce the radiation dose to as low as reasonably achievable. COMPARISON: None HISTORY: ORDERING SYSTEM PROVIDED HISTORY: Headache TECHNOLOGIST PROVIDED HISTORY: Headache Decision Support Exception - unselect if not a suspected or confirmed emergency medical condition->Emergency Medical Condition (MA) FINDINGS: BRAIN/VENTRICLES: There is no acute intracranial hemorrhage, mass effect or midline shift. No abnormal extra-axial fluid collection. The self-white differentiation is maintained without evidence of an acute infarct. There is prominence of the ventricles and sulci due to global parenchymal volume loss. There are nonspecific areas of hypoattenuation within the periventricular and subcortical white matter, which likely represent chronic microvascular ischemic change. ORBITS: The visualized portion of the orbits demonstrate no acute abnormality. SINUSES: There is mucosal thickening of the bilateral maxillary sinuses with mucosal retention cysts. There is an air-fluid level in the left maxillary sinus. Air-fluid level noted in the left sphenoid sinus. Opacification of scattered ethmoid air cells with moderate mucosal thickening of the left frontal sinus. There is partial opacification of the left mastoid air cells. Near complete opacification of the right mastoid air cells. SOFT TISSUES/SKULL: No acute abnormality of the visualized skull or soft tissues. IMPRESSION: No acute intracranial abnormality. Findings suggesting acute on chronic sinusitis with extensive mucosal thickening and air-fluid levels as described above. There is also partial opacification of the mastoid air cells that may represent mastoiditis. Interpreted by: Josue Beauchamp MD Signed by: Josue Beauchamp MD 01/21/24 Final result Normal [facility] Outside Recordson 01-21-2024 Outside Records [id number]#1.0 0OTGTIFF [facility] Outside Recordson 01-19-2024 Outside Records [id number] 21 [id number]#1.0 0OTGTIFF [facility] Outside Records [id number]#1.0 0OTGTIFF [facility] Rad - Other Radiology Report on 01-19-2024 Rad - Other Radiology Report [id number]#1.0 0OTGTIFF Normal [facility] Basic Metabolic Profon 01-17 Anion gap [Moles/Vol] 11 mmol/L Normal 9-17 [facility] Comment on above: Performed By: #### B MP, CDP, TROPI, MG ####[address] , [place] [id number] Lab Director: Bernie Washington MD BUN/CRE Ratio 22 High 9-20 [facility] Comment on above: Performed By: #### B MP, CDP, TROPI, MG ####[address] , [place] [id number] Lab Director: Bernie Washington MD Calcium [Mass/Vol] 9.2 mg/dL Normal 8.6-10.4 [facility] Comment on above: Performed By: #### B MP, CDP, TROPI, MG ####[address] [place] [address] Lab Director: Bernie Washington MD Chloride [Moles/Vol] 104 mmol/L Normal 98-107 [facility] Comment on above: Performed By: #### B MP, CDP, TROPI, MG ####[address] , [place] [id number] Lab Director: Bernie Washington MD CO2 [Moles/Vol] 26 mmol/L Normal 20-31 [facility] Comment on above: Performed By: #### B MP, CDP, TROPI, MG ####[address] [place] [address] Lab Director: Bernie Washington MD Creatinine [Mass/Vol] 1.3 mg/dL High 0.7-1.2 [facility] Comment on above: Performed By: #### B MP, CDP, TROPI, MG ####[address] , [place] 2958883 Lab Director: Bernie Washington MD GFR/1.73 sq M.predicted among non-blacks MDRD (S/P/Bld) [Vol rate/Area] 59 mL/min/{1.73_m2} Low >60 [facility] Comment on above: Result Comment: These results are not intended for use in patients <18 years of age. eGFR results are calculated without a race factor using the 2020 CKD-EPI equation. Careful clinical correlation is recommended, particularly when comparing to results calculated using previous equations. The CKD-EPI equation is less accurate in patients with extremes of muscle mass, extra-renal metabolism of creatine, excessive creatine ingestion, or following therapy that affects renal tubular secretion. Performed By: #### B MP, CDP, TROPI, MG ####[address] [place] [address] Lab Director: Bernie Washington MD Glucose [Mass/Vol] 241 mg/dL High 70-99 [facility] Comment on above: Performed By: #### B MP, CDP, TROPI, MG ####[address] [place] [address] Lab Director: Bernie Washington MD Potassium [Moles/Vol] 5.1 mmol/L Normal 3.7-5.3 [facility] Comment on above: Performed By: #### B MP, CDP, TROPI, MG ####[address] [place] [address] Lab Director: Bernie Washington MD Sodium [Moles/Vol] 141 mmol/L Normal 135-144 [facility] Comment on above: Performed By: #### B MP, CDP, TROPI, MG ####[address] [place] [address] Lab Director: Bernie Washington MD Urea nitrogen [Mass/Vol] 28 mg/dL High 8-23 [facility] Comment on above: Performed By: #### B MP, CDP, TROPI, MG ####[address] , [place] [id number] Lab Director: Bernie Washington MD Anion gap [Moles/Vol] 10 mmol/L Normal 9-17 [facility] Comment on above: Performed By: #### M G, BMP, CDP, TROPI #### [facility] [address] [place], [place] [phone] [employer]: Bernie Washington MD BUN/CRE Ratio 25 High 9-20 [facility] Comment on above: Performed By: #### M G, BMP, CDP, TROPI #### [address] [place], [place] 7680683 [employer]: Bernie Washington MD Calcium [Mass/Vol] 9.1 mg/dL Normal 8.6-10.4 [facility] Comment on above: Performed By: #### M G, BMP, CDP, TROPI #### [address] [place], [place] 0083283 [employer]: Bernie Washington MD Chloride [Moles/Vol] 105 mmol/L Normal 98-107 [facility] Comment on above: Performed By: #### M G, BMP, CDP, TROPI #### [address] [place], [place] 3885783 [employer]: Bernie Washington MD CO2 [Moles/Vol] 25 mmol/L Normal 20-31 [facility] Comment on above: Performed By: #### M G, BMP, CDP, TROPI #### [facility] [address] [place] [address] Dr[place], [place] 06[address]3 [employer]: Bernie Washington MD Creatinine [Mass/Vol] 1.1 mg/dL Normal 0.7-1.2 [facility] Comment on above: Performed By: #### M G, BMP, CDP, TROPI #### [facility] [address] [place], [place] [phone] [employer]: Bernie Washington MD GFR/1.73 sq M.predicted among non-blacks MDRD (S/P/Bld) [Vol rate/Area] 72 mL/min/{1.73_m2} Normal >60 [facility] Comment on above: Result Comment: These results are not intended for use in patients <18 years of age. eGFR results are calculated without a race factor using the 2020 CKD-EPI equation. Careful clinical correlation is recommended, particularly when comparing to results calculated using previous equations. The CKD-EPI equation is less accurate in patients with extremes of muscle mass, extra-renal metabolism of creatine, excessive creatine ingestion, or following therapy that affects renal tubular secretion. Performed By: #### M G, BMP, CDP, TROPI #### [facility] [address] [place] [address] [place] [address] [employer]: Bernie Washington MD Glucose [Mass/Vol] 110 mg/dL High 70-99 [facility] Comment on above: Performed By: #### M G, BMP, CDP, TROPI #### [facility] [address] [place] [address] [place] [address] [employer]: Bernie Washington MD Potassium [Moles/Vol] 4.7 mmol/L Normal 3.7-5.3 [facility] Comment on above: Performed By: #### M G, BMP, CDP, TROPI #### [address] [place] [address] [employer]: Bernie Washington MD Sodium [Moles/Vol] 140 mmol/L Normal 135-144 [facility] Comment on above: Performed By: #### M G, BMP, CDP, TROPI #### [facility] [address] [place] [address] [employer]: Bernie Washington MD Urea nitrogen [Mass/Vol] 27 mg/dL High 8-23 [facility] Comment on above: Performed By: #### M G, BMP, CDP, TROPI #### [facility] [address] [place] [address] [place] [address] [employer]: Bernie Washington MD Anion gap [Moles/Vol] 13 mmol/L Normal 9-17 [facility] Comment on above: Performed By: #### C DP, REJEC #### [facility] [address] [place], [place] [phone] [employer]: Bernie Washington MD BUN/CRE Ratio 23 High 9-20 [facility] Comment on above: Performed By: #### C DP, REJEC #### [facility] [address] [place], [place] [phone] [employer]: Bernie Washington MD Calcium [Mass/Vol] 9.1 mg/dL Normal 8.6-10.4 [facility] Comment on above: Performed By: #### C DP, REJEC #### [facility] [address] [place], [place] 2537583 [employer]: Bernie Washington MD Chloride [Moles/Vol] 106 mmol/L Normal 98-107 [facility] Comment on above: Performed By: #### C DP, REJEC #### [facility] [address] [place], [place] 0852483 [employer]: Bernie Washington MD CO2 [Moles/Vol] 21 mmol/L Normal 20-31 [facility] Comment on above: Performed By: #### C DP, REJEC #### [facility] [address] [place], [place] 5886283 [employer]: Bernie Washington MD Creatinine [Mass/Vol] 1.2 mg/dL Normal 0.7-1.2 [facility] Comment on above: Performed By: #### C DP, REJEC #### [facility] [address] [place] [address] [employer]: Bernie Washington MD GFR/1.73 sq M.predicted among non-blacks MDRD (S/P/Bld) [Vol rate/Area] 65 mL/min/{1.73_m2} Normal >60 [facility] Comment on above: Result Comment: These results are not intended for use in patients <18 years of age. eGFR results are calculated without a race factor using the 2020 CKD-EPI equation. Careful clinical correlation is recommended, particularly when comparing to results calculated using previous equations. The CKD-EPI equation is less accurate in patients with extremes of muscle mass, extra-renal metabolism of creatine, excessive creatine ingestion, or following therapy that affects renal tubular secretion. Performed By: #### C DP, REJEC #### [address] [place] [address] [employer]: Bernie Washington MD Glucose [Mass/Vol] 172 mg/dL High 70-99 [facility] Comment on above: Performed By: #### C TREVIN, REJEC #### [address] [place], [place] 6564683 [employer]: Bernie Washington MD Potassium [Moles/Vol] 5.1 mmol/L Normal 3.7-5.3 [facility] Comment on above: Performed By: #### C TREVIN, REJEC #### [address] [place], [place] 9089183 [employer]: Bernie Washington MD Sodium [Moles/Vol] 140 mmol/L Normal 135-144 [facility] Comment on above: Performed By: #### C TREVIN, REJEC #### [address] [place], [place] 3423883 [employer]: Bernie Washington MD Urea nitrogen [Mass/Vol] 27 mg/dL High 8-23 [facility] Comment on above: Performed By: #### C DP, REJEC #### [address] [place], [place] 8108083 [employer]: Bernie Washington MD Brain Natri. Peptideon 01-17 Natriuretic peptide B (Bld) [Mass/Vol] 300 pg/mL High <300 [facility] Comment on above: Result Comment: An age-independent cutoff point of 300 pg/ml has a 98% negative predictive value excluding acute heart failure. Performed By: #### C DP, REJEC #### [address] [place], [place] [address] [employer]: Bernie Washington MD CBC with Diffon 01-18-2024 Abs. Basophil 0.04 k/uL Normal 0.00-0.20 [facility] Comment on above: Performed By: #### B MP, CDP, TROPI, MG ####[address] , [facility]83[facility])[phone] Director: Bernie Washington MD Abs.Imm.Granulocyte <0.03 Normal 0.00-0.30 [facility] Comment on above: Performed By: #### B MP, CDP, TROPI, MG ####[address] , [place] [address])[phone] Director: Bernie Washington MD Abs.Neutrophil (Seg) 4.07 k/uL Normal 1.50-8.10 [facility] Comment on above: Performed By: #### B MP, CDP, TROPI, MG ####[address] , [facility]83[facility])[phone] Director: Bernie Washington MD Basophils/100 WBC (Bld) 1 % Normal 0-2 [facility] Comment on above: Performed By: #### B MP, CDP, TROPI, MG ####[address] , [place] [address])[phone] Director: Bernie Washington MD Eosinophils (Bld) [#/Vol] 0.63 10*3/uL High 0.00-0.44 [facility] Comment on above: Performed By: #### B MP, CDP, TROPI, MG ####[address] , [facility]83[facility])[phone] Director: Bernie Washington MD Eosinophils/100 WBC (Bld) 8 % High 1-4 [facility] Comment on above: Performed By: #### B MP, CDP, TROPI, MG ####[address] , [place] 2163583 Lab Director: Bernie Washington MD Erythrocyte distribution width (RBC) [Ratio] 13.2 % Normal 11.8-14.4 [facility] Comment on above: Performed By: #### B MP, CDP, TROPI, MG ####[address] [place] [address] Lab Director: Bernie Washington MD Hematocrit (Bld) [Volume fraction] 36.8 % Low 40.7-50.3 [facility] Comment on above: Performed By: #### B MP, CDP, TROPI, MG ####[address] [place] [address]([facility])[phone] Director: Bernie Washington MD Hemoglobin (Bld) [Mass/Vol] 11.9 g/dL Low 13.0-17.0 [facility] Comment on above: Performed By: #### B MP, CDP, TROPI, MG ####[address] , [place] 9243783 Lab Director: Bernie Washington MD Immature granulocytes/100 WBC (Bld) 0 % Normal 0 [facility] Comment on above: Performed By: #### B MP, CDP, TROPI, MG ####[address] , [place] 2662783 Lab Director: Bernie Washington MD Lymphocytes (Bld) [#/Vol] 2.38 10*3/uL Normal 1.10-3.70 [facility] Comment on above: Performed By: #### B MP, CDP, TROPI, MG ####[address] , [place] 8961883 Lab Director: Bernie Washington MD Lymphocytes/100 WBC (Bld) 31 % Normal 24-43 [facility] Comment on above: Performed By: #### B MP, CDP, TROPI, MG ####[address] , [place] 3292383 Lab Director: Bernie Washington MD MCH (RBC) [Entitic mass] 29.3 pg Normal 25.2-33.5 [facility] Comment on above: Performed By: #### B MP, CDP, TROPI, MG ####[address] , [place] 8917583 Lab Director: Bernie Washington MD MCHC (RBC) [Mass/Vol] 32.3 g/dL Normal 28.4-34.8 [facility] Comment on above: Performed By: #### B MP, CDP, TROPI, MG ####[address] , [facility]83[facility])[phone] Director: Bernie Washington MD MCV (RBC) [Entitic vol] 90.6 fL Normal 82.6-102.9 [facility] Comment on above: Performed By: #### B MP, CDP, TROPI, MG ####[address] , [place] [address])[phone] Director: Bernie Washington MD Monocytes (Bld) [#/Vol] 0.53 10*3/uL Normal 0.10-1.20 [facility] Comment on above: Performed By: #### B MP, CDP, TROPI, MG ####[address] , [place] 1610183 Lab Director: Bernie Washington MD Monocytes/100 WBC (Bld) 7 % Normal 3-12 [facility] Comment on above: Performed By: #### B MP, CDP, TROPI, MG ####[address] [place] [address] Lab Director: Bernie Washington MD Neutrophil (Seg) 53 % Normal 36-65 [facility] Comment on above: Performed By: #### B MP, CDP, TROPI, MG ####[address] , [place] 5998383 Lab Director: Bernie Washington MD NRBC Automated 0.0 per 100 WBC Normal 0.0 [facility] Comment on above: Performed By: #### B MP, CDP, TROPI, MG ####[address] [place] [address] Lab Director: Bernie Washington MD Platelet mean volume (Bld) [Entitic vol] 10.8 fL Normal 8.1-13.5 [facility] Comment on above: Performed By: #### B MP, CDP, TROPI, MG ####[address] , [place] [phone] Director: Bernie Washington MD Platelets (Bld) [#/Vol] 251 10*3/uL Normal 138-453 [facility] Comment on above: Performed By: #### B MP, CDP, TROPI, MG ####[address] , [place] 5252783 Lab Director: Bernie Washington MD RBC (Bld) [#/Vol] 4.06 10*6/uL Low 4.21-5.77 [facility] Comment on above: Performed By: #### B MP, CDP, TROPI, MG ####[address] [place] [address] Lab Director: Bernie Washington MD WBC (Bld) [#/Vol] 7.7 10*3/uL Normal 3.5-11.3 [facility] Comment on above: Performed By: #### B MP, CDP, TROPI, MG ####[address] [place] [address] Lab Director: Bernie Washington MD Abs. Basophil 0.04 k/uL Normal 0.00-0.20 [facility] Comment on above: Performed By: #### M G, BMP, CDP, TROPI #### [facility] [address] [place] [address] [employer]: Bernie Washington MD Abs.Imm.Granulocyte <0.03 Normal 0.00-0.30 [facility] Comment on above: Performed By: #### M G, BMP, CDP, TROPI #### [address] [place] [address] [employer]: Bernie Washington MD Abs.Neutrophil (Seg) 5.01 k/uL Normal 1.50-8.10 [facility] Comment on above: Performed By: #### M G, BMP, CDP, TROPI #### [address] [place] [address] [employer]: Bernie Washington MD Basophils/100 WBC (Bld) 1 % Normal 0-2 [facility] Comment on above: Performed By: #### M G, BMP, CDP, TROPI #### [address] [place] [address] [employer]: Bernie Washington MD Eosinophils (Bld) [#/Vol] 0.43 10*3/uL Normal 0.00-0.44 [facility] Comment on above: Performed By: #### M G, BMP, CDP, TROPI #### [facility] [address] [place] [address] [employer]: Bernie Washington MD Eosinophils/100 WBC (Bld) 6 % High 1-4 [facility] Comment on above: Performed By: #### M G, BMP, CDP, TROPI #### [address] [place] [address] [employer]: Bernie Washington MD Erythrocyte distribution width (RBC) [Ratio] 13.1 % Normal 11.8-14.4 [facility] Comment on above: Performed By: #### M G, BMP, CDP, TROPI #### [facility] [address] [place], [place] 9321683 [employer]: Bernie Washington MD Hematocrit (Bld) [Volume fraction] 36.3 % Low 40.7-50.3 [facility] Comment on above: Performed By: #### M G, BMP, CDP, TROPI #### [facility] [address] [place], [place] 5046783 [employer]: Bernie Washington MD Hemoglobin (Bld) [Mass/Vol] 11.7 g/dL Low 13.0-17.0 [facility] Comment on above: Performed By: #### M G, BMP, CDP, TROPI #### [address] [place], [place] 4060083 [employer]: Bernie Washington MD Immature granulocytes/100 WBC (Bld) 0 % Normal 0 [facility] Comment on above: Performed By: #### M G, BMP, CDP, TROPI #### [address] [place], [place] 1893983 [employer]: Bernie Washington MD Lymphocytes (Bld) [#/Vol] 1.47 10*3/uL Normal 1.10-3.70 [facility] Comment on above: Performed By: #### M G, BMP, CDP, TROPI #### [facility] [address] [place], [place] [phone] [employer]: Bernie Washington MD Lymphocytes/100 WBC (Bld) 20 % Low 24-43 [facility] Comment on above: Performed By: #### M G, BMP, CDP, TROPI #### [address] [place], [facility]83 [employer]: Bernie Washington MD MCH (RBC) [Entitic mass] 29.0 pg Normal 25.2-33.5 [facility] Comment on above: Performed By: #### M G, BMP, CDP, TROPI #### [address] [place], [facility]83 [employer]: Bernie Washington MD MCHC (RBC) [Mass/Vol] 32.2 g/dL Normal 28.4-34.8 [facility] Comment on above: Performed By: #### M G, BMP, CDP, TROPI #### [address] [place], [place] [address] [employer]: Bernie Washington MD MCV (RBC) [Entitic vol] 89.9 fL Normal 82.6-102.9 [facility] Comment on above: Performed By: #### M G, BMP, CDP, TROPI #### [address] [place], [place] [address] [employer]: Bernie Washington MD Monocytes (Bld) [#/Vol] 0.48 10*3/uL Normal 0.10-1.20 [facility] Comment on above: Performed By: #### M G, BMP, CDP, TROPI #### [address] [place], [place] [address] [employer]: Bernie Washington MD Monocytes/100 WBC (Bld) 6 % Normal 3-12 [facility] Comment on above: Performed By: #### M G, BMP, CDP, TROPI #### [address] [place], [place] [address] [employer]: Bernie Washington MD Neutrophil (Seg) 67 % High 36-65 [facility] Comment on above: Performed By: #### M G, BMP, CDP, TROPI #### [address] [place], [place] [address] [employer]: Bernie Washington MD NRBC Automated 0.0 per 100 WBC Normal 0.0 [facility] Comment on above: Performed By: #### M G, BMP, CDP, TROPI #### [facility] [address] [place], [place] 9344683 [employer]: Bernie Washington MD Platelet mean volume (Bld) [Entitic vol] 10.5 fL Normal 8.1-13.5 [facility] Comment on above: Performed By: #### M G, BMP, CDP, TROPI #### [address] [place] [id number] [employer]: Bernie Washington MD Platelets (Bld) [#/Vol] 214 10*3/uL Normal 138-453 [facility] Comment on above: Performed By: #### M G, BMP, CDP, TROPI #### [address] [place], [facility] ([address] [employer]: Bernie Washington MD RBC (Bld) [#/Vol] 4.04 10*6/uL Low 4.21-5.77 [facility] Comment on above: Performed By: #### M G, BMP, CDP, TROPI #### [address] [place] [address] [employer]: Bernie Washington MD WBC (Bld) [#/Vol] 7.5 10*3/uL Normal 3.5-11.3 [facility] Comment on above: Performed By: #### M G, BMP, CDP, TROPI #### [address] [place], [place] [phone] [employer]: Bernie Washington MD Abs. Basophil 0.05 k/uL Normal 0.00-0.20 [facility] Comment on above: Performed By: #### C DP, REJEC #### [address] [place], [facility]83 [employer]: Bernie Washington MD Abs.Imm.Granulocyte <0.03 Normal 0.00-0.30 [facility] Comment on above: Performed By: #### C DP, REJEC #### [address] [place], [facility]83 [employer]: Bernie Washington MD Abs.Neutrophil (Seg) 3.96 k/uL Normal 1.50-8.10 [facility] Comment on above: Performed By: #### C DP, REJEC #### [address] [place], [facility]83 [employer]: Bernie Washington MD Basophils/100 WBC (Bld) 1 % Normal 0-2 [facility] Comment on above: Performed By: #### C DP, REJEC #### [address] [place], [place] [address] [employer]: Bernie Washington MD Eosinophils (Bld) [#/Vol] 0.63 10*3/uL High 0.00-0.44 [facility] Comment on above: Performed By: #### C DP, REJEC #### [address] [place], [place] 1445283 [employer]: Bernie Washington MD Eosinophils/100 WBC (Bld) 9 % High 1-4 [facility] Comment on above: Performed By: #### C DP, REJEC #### [facility] [address] [place] [address] Dr[place], [facility] [employer]: Bernie Washington MD Erythrocyte distribution width (RBC) [Ratio] 13.2 % Normal 11.8-14.4 [facility] Comment on above: Performed By: #### C DP, REJEC #### [address] [place], [facility]83 [employer]: Bernie Washington MD Hematocrit (Bld) [Volume fraction] 39.8 % Low 40.7-50.3 [facility] Comment on above: Performed By: #### C DP, REJEC #### [address] [place], [place] [phone] [employer]: Bernie Washington MD Hemoglobin (Bld) [Mass/Vol] 12.8 g/dL Low 13.0-17.0 [facility] Comment on above: Performed By: #### C DP, REJEC #### [address] [place], [place] [address] [employer] Grader: Bernie Washington MD Immature granulocytes/100 WBC (Bld) 0 % Normal 0 [facility] Comment on above: Performed By: #### C DP, REJEC #### [address] [place], [facility] [employer] And [employer] Grader: Bernie Washington MD Lymphocytes (Bld) [#/Vol] 2.26 10*3/uL Normal 1.10-3.70 [facility] Comment on above: Performed By: #### C DP, REJEC #### [address] [place] [address] [employer] And [employer] Grader: Bernie Washington MD Lymphocytes/100 WBC (Bld) 31 % Normal 24-43 [facility] Comment on above: Performed By: #### C DP, REJEC #### [address] [place], [facility] [employer] And [employer] Grader: Bernie Washington MD MCH (RBC) [Entitic mass] 29.2 pg Normal 25.2-33.5 [facility] Comment on above: Performed By: #### C DP, REJEC #### [address] [place] [address] [employer] And [employer] Grader: Bernie Washington MD MCHC (RBC) [Mass/Vol] 32.2 g/dL Normal 28.4-34.8 [facility] Comment on above: Performed By: #### C DP, REJEC #### [facility] [address] [place], [place] [address] [employer] Grader: Bernie Washington MD MCV (RBC) [Entitic vol] 90.9 fL Normal 82.6-102.9 [facility] Comment on above: Performed By: #### C DP, REJEC #### [facility] [address] [place], [facility] [employer] Grader: Bernie Washington MD Monocytes (Bld) [#/Vol] 0.48 10*3/uL Normal 0.10-1.20 [facility] Comment on above: Performed By: #### C DP, REJEC #### [address] [place], [place] [address] [employer] Grader: Bernie Washington MD Monocytes/100 WBC (Bld) 7 % Normal 3-12 [facility] Comment on above: Performed By: #### C DP, REJEC #### [address] [place], [facility] [employer] Grader: Bernie Washington MD Neutrophil (Seg) 52 % Normal 36-65 [facility] Comment on above: Performed By: #### C DP, REJEC #### [address] [place], [place] [address] [employer] Grader: Bernie Washington MD NRBC Automated 0.0 per 100 WBC Normal 0.0 [facility] Comment on above: Performed By: #### C DP, REJEC #### [address] [place], [facility] [employer]ader: Bernie Washington MD Platelet mean volume (Bld) [Entitic vol] 10.9 fL Normal 8.1-13.5 [facility] Comment on above: Performed By: #### C DP, REJEC #### [address] [place], [place] [address] [employer]ader: Bernie Washington MD Platelets (Bld) [#/Vol] 241 10*3/uL Normal 138-453 [facility] Comment on above: Performed By: #### C DP, REJEC #### [address] [place] [address] [employer] Grader: Bernie Washington MD RBC (Bld) [#/Vol] 4.38 10*6/uL Normal 4.21-5.77 [facility] Comment on above: Performed By: #### C DP, REJEC #### [address] [place] [address] [employer]ader: Bernie Washington MD WBC (Bld) [#/Vol] 7.4 10*3/uL Normal 3.5-11.3 [facility] Comment on above: Performed By: #### C DP, REJEC #### [address] [place] [address] [employer] Grader: Bernie Washington MD CT CHEST PULMONARY EMBOLISM W CONTRASTon 01-18-2024 CT CHEST PULMONARY EMBOLISM W CONTRAST EXAMINATION: CTA OF THE CHEST 01/18/2024 8:39 am TECHNIQUE: CTA of the chest was performed after the administration of intravenous contrast. Multiplanar reformatted images are provided for review. MIP images are provided for review. Automated exposure control, iterative reconstruction, and/or weight based adjustment of the mA/kV was utilized to reduce the radiation dose to as low as reasonably achievable. COMPARISON: None. HISTORY: ORDERING SYSTEM PROVIDED HISTORY: Right sided chest pain TECHNOLOGIST PROVIDED HISTORY: Right sided chest pain Additional Contrast?->1 FINDINGS: Pulmonary Arteries: Pulmonary arteries are adequately opacified for evaluation. No evidence of intraluminal filling defect to suggest pulmonary embolism. Main pulmonary artery is normal in caliber. Mediastinum: Cardiomegaly. Pericardial effusion. Coronary atherosclerotic calcifications. Central airways are clear. No evidence of mediastinal, hilar or axillary lymphadenopathy. Lungs/pleura: The lungs are without acute process. No focal consolidation or pulmonary edema. No evidence of pleural effusion or pneumothorax. Upper Abdomen: No focal adrenal nodules. Limited images of the upper abdomen demonstrate no acute abnormality. Soft Tissues/Bones: Age related degenerative changes of the visualized osseous structures without focal destructive lesion. IMPRESSION: No pulmonary embolism or acute pulmonary abnormality. Cardiomegaly with coronary artery atherosclerotic disease. Interpreted by: Josue Beauchamp MD Signed by: Josue Beauchamp MD 01/18/24 Final result Normal [facility] Glucose, Whole Bloodon 01-17 Glucose [Mass/Vol] 116 mg/dL High 74-100 [facility] Glucose [Mass/Vol] 62 mg/dL Low 74-100 [facility] Magnesiumon 01-18-2024 Magnesium [Mass/Vol] 1.6 mg/dL Normal 1.6-2.6 [facility] Comment on above: Performed By: #### B MP, CDP, TROPI, MG ####[address] [place], [place] [address] Lab Director: Bernie Washington MD Magnesium [Mass/Vol] 1.5 mg/dL Low 1.6-2.6 [facility] Comment on above: Performed By: #### M G, BMP, CDP, TROPI #### [address] [place] [address] [employer] Grader: Bernie Washington MD Magnesium [Mass/Vol] 1.2 mg/dL Critically low 1.6-2.6 [facility] Comment on above: Performed By: #### C DP, REJEC #### [address] [place] [address] [employer] Grader: Bernie Washington MD Specimen Rejectionon 024 Reason for rejection Unable to perform testing: Specimen hemolyzed. Normal [facility] Comment on above: Result Comment: Unab le to perform testing: Specimen clotted. Performed By: #### R EJEC ####[address] [place] [address] Lab Director: Bernie Washington MD Source of sample BLOOD Normal [facility] Comment on above: Performed By: #### R EJEC ####[facility] [place] [address] Lab Director: Bernie Washington MD Test ordered CDP MG TROPI BMP [facility] Comment on above: Performed By: #### R EJEC ####[facility] [place] [address] Lab Director: Bernie Washington MD Reason for rejection Unable to perform testing: Specimen hemolyzed. Normal [facility] Comment on above: Performed By: #### C DP, REJEC #### [facility] [address] [place] [address] [employer] Grader: Bernie Washington MD Source of sample .BLOOD Normal [facility] Comment on above: Performed By: #### C DP, REJEC #### [facility] [address] [place] [address] [employer] Grader: Bernie Washington MD Test ordered BNP,BMO,MG,TROPI [facility] Comment on above: Performed By: #### C DP, REJEC #### [facility] [address] [place] [address] [employer] Grader: Bernie Washington MD Troponinon 01-18-2024 Troponin, High Sens 36 ng/L High 0-22 [facility] Comment on above: Result Comment: High Sensitivity Troponin values cannot be compared with other Troponin methodologies. Performed By: #### B MP, CDP, TROPI, MG ####[facility] [place] [address] Lab Director: Bernie Washington MD Troponin, High Sens 32 ng/L High 0-22 [facility] Comment on above: Result Comment: High Sensitivity Troponin values cannot be compared with other Troponin methodologies. Performed By: #### M G, BMP, CDP, TROPI #### [facility] [address] [place] [address] [employer] Grader: Bernie Washington MD Troponin, High Sens 31 ng/L High 0-22 [facility] Comment on above: Result Comment: High Sensitivity Troponin values cannot be compared with other Troponin methodologies. Performed By: #### T ROPI ####[address] [place] [address] Lab Director: Bernie Washington MD Troponin, High Sens 30 ng/L High 0-22 [facility] Comment on above: Result Comment: High Sensitivity Troponin values cannot be compared with other Troponin methodologies. Performed By: #### C DP, REJEC #### [address] [place] [address] [employer] Grader: Bernie Washington MD XR CHEST PORTABLEon 01-18-20 XR CHEST PORTABLE EXAMINATION: ONE XRAY VIEW OF THE CHEST 01/17/2024 10:37 pm COMPARISON: None. HISTORY: ORDERING SYSTEM PROVIDED HISTORY: chest pain TECHNOLOGIST PROVIDED HISTORY: chest pain FINDINGS: Heart size at the upper limit of normal. No lung infiltrate or consolidation. No definite pneumothorax or pleural effusion. IMPRESSION: No acute abnormality. Interpreted by: Mark Langford MD Signed by: Mark Langford MD 01/17/24 Final result Normal [facility] Cult,Urineon 01-15-2024 Cult,Urine Specimen Description .VOIDED URINE Culture NO SIGNIFICANT GROWTH Report Status FINAL 01/15/2024 Normal [facility] Comment on above: Performed By: #### U RC #### [facility] [address] [place], [place] [id number] [employer] Grader: Sony Aguilar MD [address] [place] [address] [employer] Grader: Bernie Washington MD Urinalysis, Routineon 2023 Bilirubin, SemiQt,Ur SMALL Abnormal NEG [facility] Comment on above: Performed By: #### U MICAO, UA #### [address] [place], [place] [address] [employer] Grader: Bernie Washington MD Blood, Urine Negative Normal NEG [facility] Comment on above: Performed By: #### U MICAO, UA #### [facility] [address] [place] [address] Dr[place], [place] [id number] [employer] Grader: Bernie Washington MD Clarity (U) Clear Normal CLEAR [facility] Comment on above: Performed By: #### U MICAO, UA #### [facility] [address] [place] [address] Dr[place], [place] [address]83 [employer] Grader: Bernie Washington MD Color (U) Yellow Normal YEL [facility] Comment on above: Performed By: #### U MICAO, UA #### [facility] [address] [place] [address] Dr[place], [place] [address]83 [employer] Grader: Bernie Washington MD Glucose Ql (U) Negative Normal NEG [facility] Comment on above: Performed By: #### U MICAO, UA #### [facility] [address] [place] [address] Dr[place], [place] [address]83 [employer] Grader: Bernie Washington MD Ketones Ql (U) TRACE Abnormal NEG [facility] Comment on above: Performed By: #### U MICAO, UA #### [facility] [address] [place] [address] Dr[place], [place] 03[address]083 [employer] Grader: Bernie Washington MD Leukocyte esterase Test strip Ql (U) TRACE Abnormal NEG [facility] Comment on above: Performed By: #### U MICAO, UA #### [facility] [address] [place], [place] [address] [employer] Grader: Bernie Washington MD Nitrite,Ur Negative Normal NEG [facility] Comment on above: Performed By: #### U MICAO, UA #### [facility] [address] [place], [place] [address]83 [employer] Grader: Bernie Washington MD PH,Ur 6.0 Normal 5.0-9.0 [facility] Comment on above: Performed By: #### U MARJORIEO, UA #### [facility] [address] [place], [place] [address] [employer] Grader: Bernie Washington MD Protein Ql (U) 2+ mg/dL Abnormal NEG [facility] Comment on above: Performed By: #### U MARJORIEO, UA #### [facility] [address] [place], [place] [address]383 [employer] Grader: Bernie Washington MD Spec. [place],Ur >1.030 High 1.010-1.020 [facility] Comment on above: Performed By: #### U MARJORIEO, UA #### [address] [place], [place] [address]83 [employer] Grader: Bernie Washington MD Urobilinogen,Ur Normal Normal 0.0-1.0 [facility] Comment on above: Performed By: #### U MARJORIEO, UA #### [address] [place], [place] [address] [employer] Grader: Bernie Washington MD Urinalysis,Microon 4 Bacteria 1+ Abnormal NONE [facility] Comment on above: Performed By: #### U MARJORIEO, UA ####[address] , [place] [address] [facility] Director: Bernie Washington MD Epithelial cells LM Ql (Urine sed) 5 TO 10 Normal 0-5 [facility] Comment on above: Performed By: #### U MARJORIEO, UA ####[address] [place] [address] Lab Director: Bernie Washington MD Mucus Strands 1+ Abnormal NONE [facility] Comment on above: Performed By: #### U MARJORIEO, UA ####[address] , [place] [address] lab Director: Bernie Washington MD Urine RBC's 0 TO 2 Normal 0-2 [facility] Comment on above: Performed By: #### U MARJORIEO, UA ####[facility] [place] , [place] [address] lab Director: Bernie Washington MD Urine WBC's 2 TO 5 Normal 0-5 [facility] Comment on above: Performed By: #### U MICAO, UA ####[facility] [place] , [place] [address] lab Director: Bernie Washington MD No Panel Informationon 01-07 Radiology Study observation (narrative) [facility] Work Phone: [facility] Work Phone: Physician Orderon 12-28-2023 Physician Order [id number]. 00TIFF Normal [facility] Ambulatory Visit Summaryon 0 12-25-2023 Ambulatory Visit Summary OTILIO SUAREZ :1955 Visit Date:12/25/2023 Ambulatory Visit Instructions Your Diagnosis Afib Your Care Team Attending Physician - Zia LEMONS, Jaja Dash Primary Care Physician - MATI LEMONS, HERMILO Lewis Referring Physician - NONE, XXXX This Is Your Medications List acetaminophen (acetaminophen 325 mg Tab) aspirin (aspirin 81 mg Oral EC Tab) cholecalciferol (cholecalciferol 1000 intl units (25 mcg) oral tablet) dulaglutide (Trulicity Pen 0.75 mg/0.5 mL subcutaneous solution) furosemide (furosemide 20 mg Tab) levetiracetam (levETIRAcetam 750 mg oral tablet, dispersible) loratadine (loratadine 10 mg Tab) magnesium oxide (magnesium oxide 400 mg Tab) metformin (metformin 1000 mg oral tablet, extended release) midodrine (midodrine 5 mg Tab) omeprazole (omeprazole 20 mg Cap-DR) pravastatin (pravastatin 40 mg Tab) Procedures Performed None of the following diagnostic imaging studies ordered: chest X-ray, CT, Ultrasound, MRI, PET, or nuclear medicine scans (ML). Discharge Vitals Heart Rate (Peripheral) 55 Blood Pressure 142/90 Height 185 cm Height 73 in Weight 116 kg Weight 255.2 lb BMI 33.89 Medications What How Much When Instructions Unchanged acetaminophen (acetaminophen 325 mg Tab) 2 Tablets By Mouth Every 6 hours as needed for Pain Unchanged aspirin (aspirin 81 mg Oral EC Tab) 1 Tablets By Mouth Every day Unchanged cholecalciferol (cholecalciferol 1000 intl units (25 mcg) oral tablet) 1 Tablets By Mouth Every day Unchanged dulaglutide (Trulicity Pen 0.75 mg/ 0.5 mL subcutaneous solution) 0.75 Milligram Subcutaneous Thursday Unchanged furosemide (furosemide 20 mg Tab) 1 Tablets By Mouth Every day as needed for Edema Unchanged levetiracetam (levETIRAcetam 750 mg oral tablet, dispersible) 1 Tablets By Mouth 2 times a day Unchanged loratadine (loratadine 10 mg Tab) 1 Tablets By Mouth Every day as needed for Itching Unchanged magnesium oxide (magnesium oxide 400 mg Tab) 1 Tablets By Mouth Every day Unchanged metformin (metformin 1000 mg oral tablet, extended release) 1 Tablets By Mouth 2 times a day Unchanged midodrine (midodrine 5 mg Tab) 1 Tablets By Mouth 3 times a day Unchanged omeprazole (omeprazole 20 mg Cap-DR) 1 Capsules By Mouth Every day Unchanged pravastatin (pravastatin 40 mg Tab) 1 Tablets By Mouth Once a day (at bedtime) Allergies Dilaudid (Anaphylactic reaction, Unknown) morphine (Anaphylactic reaction, Unknown) penicillin (Anaphylactic reaction, Unknown) Problems Ongoing - Any problem that you are currently receiving treatment for. A-fib CAD in [place] artery Chronic anemia Chronic GERD Dementia Diabetes Diastolic heart failure Hyperlipidemia Hypertension Obesity Peripheral neuropathy Seizure Type 2 diabetes mellitus Patient Survey You may receive a survey via text or e-mail asking about your office visit. Please share your experience with us by completing your survey. We appreciate your feedback and thank you for choosing us for your care. Normal [facility] Cardiac Device Check - Remot amanda 12-25-2023 Radiology Study observation (narrative) [facility] Work Phone: [facility] Work Phone: ECG 12-Leadon 12-25-2023 ECG 12-Lead [id number]#1. 00TIFF Normal [facility] Outside Recordson 12-25-2023 Outside Records [id number]#1. 00TIFF Normal [facility] Physician Orderon 12-25-2023 Physician Order [id number]#1. 00TIFF Normal [facility] No Panel Informationon 12-17 Radiology Study observation (narrative) [facility] Work Phone: [facility] Work Phone: No Panel Informationon 12-03 Radiology Study observation (narrative) [facility] Work Phone: [facility] Work Phone: ALL CBC WITH AUTO DIFFon BASOPHILS ABSOLUTE AUTO 0.0 [facility] Basophils/100 WBC (Bld) 0.5 % 0.2 - 2.0 % [facility] Eosinophils/100 WBC (Bld) 5.4 % 0.9 - 7.0 % [facility] Erythrocyte distribution width (RBC) [Ratio] 13.6 % 11.0 - 15.0 % [facility] Hematocrit (Bld) [Volume fraction] 34.3 % Low 42.0 - 54.0 % [facility] Hemoglobin (Bld) [Mass/Vol] 10.5 g/dL Low 14.0 - 18.0 g/dL [facility] IMMATURE GRANULOCYTES ABS AUTO 0.02 [facility] Immature granulocytes/100 WBC (Bld) 0.3 % 0.0 - 0.5 % [facility] Interpretation and review of laboratory results Abnormal [facility] LYMPHOCYTES ABSOLUTE AUTO 2.4 [facility] Lymphocytes/100 WBC (Bld) 39.2 % 20.5 - 60.0 % [facility] MCH (RBC) [Entitic mass] 27.7 pg 25.9 - 34.0 pg [facility] MCHC (RBC) [Mass/Vol] 30.6 g/dL 29.9 - 35.2 g/dL [facility] MCV (RBC) [Entitic vol] 90.5 fL 80.0 - 94.0 fL [facility] MONOCYTES ABSOLUTE AUTO 0.5 [facility] Monocytes/100 WBC (Bld) 8.0 % 1.7 - 12.0 % [facility] NEUTROPHILS ABSOLUTE AUTO 2.9 [facility] Neutrophils/100 WBC (Bld) 46.6 % 43.0 - 75.0 % [facility] Platelet mean volume (Bld) [Entitic vol] 11.0 fL 9.5 - 13.5 fL [facility] TBH EO # 0.3 [facility]H PLT 232 [facility] RBC 3.79 Low [facility] WBC 6.1 [facility] ECG 12 Leadon 10-21-2023 EKG performed today shows sinus bradycardia left axis deviation incomplete right bundle branch block at a rate of 58 bpm QRS duration 110 ms QT greater than 167 ms. Rhythm strip shows the same pattern. [facility] Work Phone: Basic metabolic 2000 panelon 10-14-2023 Anion gap [Moles/Vol] 13 mmol/L Normal 10-20 [facility] Comment on above: Performed By: #### 3 4529-8 #### TARA NOG ([id number]) [facility]) [address] [place] [address] Calcium [Mass/Vol] 8.1 mg/dL Low 8.6-10.3 [facility] Comment on above: Performed By: #### 3 4529-8 #### TARA NGO ([id number]) [facility]) [address] [place] [address] Chloride [Moles/Vol] 101 mmol/L Normal 98-107 [facility] Comment on above: Performed By: #### 3 4529-8 #### TARA NGO ([id number]) [facility] [address] [place] [address] CO2 [Moles/Vol] 25 mmol/L Normal 21-32 [facility] Comment on above: Performed By: #### 3 4529-8 #### TARA MUNGUIA RIO JANETTE ([id number]) [facility]) [address] [place] [address] Creatinine [Mass/Vol] 1.17 mg/dL Normal 0.50-1.30 [facility] Comment on above: Performed By: #### 3 4529-8 #### TARA WILLETT JANETTE ([id number]) [facility] [address] [place] [address] Glomerular filtration rate/1.73 sq M.predicted 67 mL/min/1.73m*2 Normal >60 [facility] Comment on above: Result Comment: Calc ulations of estimated GFR are performed using the 2020 CKD-EPI Study Refit equation without the race variable for the IDMS-Traceable creatinine methods. https://jasn.asnjournals.org/content//ASN.46602 43695 Performed By: #### 3 4529-8 #### TARA NGO ([id number]) [facility] [address] [place] [address] Glucose [Mass/Vol] 161 mg/dL High 74-99 [facility] Comment on above: Performed By: #### 3 4529-8 #### TARA NGO ([id number]) [facility]) [address] [place] [address] Potassium [Moles/Vol] 5.0 mmol/L Normal 3.5-5.3 [facility] Comment on above: Performed By: #### 3 4529-8 #### TARA MUNGUIA RIO JANETTE ([id number]) [facility]) [address] [place] [address] Sodium [Moles/Vol] 134 mmol/L Low 136-145 [facility] Comment on above: Performed By: #### 3 4529-8 #### TARA MUNGUIA RIO JANETTE ([id number]) [facility]) [address] [place] [address] Urea nitrogen [Mass/Vol] 31 mg/dL High 6- [facility] Comment on above: Performed By: #### 3 4529-8 #### TARA NGO ([id number]) [facility]) [address] [place] [address] ECG 12-LEADon 10-14-2023 ECG 12-LEAD Ventricular Rate 49 Atrial Rate 49 P-R Interval 136 QRS Duration 110 Q-T Interval 540 QTC Calculation(Bazett) 487 P [place] 6 R [place] -41 T [place] -29 QRS Count 8 Q Onset 226 P Onset 158 P Offset 202 T Offset 496 QTC Frederic[place] 504 Diagnosis Sinus bradycardia Left axis deviation ST & T wave abnormality, consider anterior ischemia Prolonged QT Abnormal ECG When compared with ECG of 14-OCT-2023 06:19, (unconfirmed) No significant change was found Confirmed by Sandra Plunkett ([id number]) on 10/16/2023 6:25:06 PM Normal [facility] ECG 12-LEAD Ventricular Rate 55 Atrial Rate 55 P-R Interval 156 QRS Duration 118 Q-T Interval 492 QTC Calculation(Bazett) 470 P [place] -5 R [place] -42 T [place] -26 QRS Count 9 Q Onset 209 P Onset 131 P Offset 187 T Offset 455 QTC [place] 478 Diagnosis Sinus bradycardia Left axis deviation Nonspecific intraventricular conduction delay T wave abnormality, consider anterolateral ischemia Prolonged QT Abnormal ECG When compared with ECG of 13-OCT-2023 23:48, (unconfirmed) No significant change was found Confirmed by Sandra Plunkett ([id number]) on 10/16/2023 6:16:04 PM Normal [facility] ECG 12-LEAD Ventricular Rate 68 Atrial Rate 68 P-R Interval 158 QRS Duration 110 Q-T Interval 436 QTC Calculation(Bazett) 463 P [place] 67 R [place] -47 T [place] -24 QRS Count 11 Q Onset 211 P Onset 132 P Offset 171 T Offset 429 QTC Fredericia 454 Diagnosis Normal sinus rhythm Left axis deviation ST & T wave abnormality, consider anterolateral ischemia Prolonged QT Abnormal ECG When compared with ECG of 13-OCT-2023 13:19, (unconfirmed) Inverted T waves have replaced nonspecific T wave abnormality in Anterolateral leads Confirmed by Sandra Plunkett ([id number]) on 10/15/2023 7:03:42 AM Normal [facility] Glucose Test strip manual (B ld) [Mass/Vol]on 10-14-2023 Glucose [Mass/Vol] 120 mg/dL High 74-99 [facility] Comment on above: Performed By: #### 3 4529-8 #### TARA NGO ([id number]) [facility] ([facility]) [address] [place] [address] 53484 Glucose [Mass/Vol] 138 mg/dL High 74-99 [facility] Comment on above: Performed By: #### 3 4529-8 #### TARA NGO ([id number]) [facility] ([facility]) [address] [place] [address] 26597 Magnesiumon 10-14-2023 Magnesium [Mass/Vol] 1.79 mg/dL Normal 1.60-2.40 [facility] Comment on above: Performed By: #### 3 4529-8 #### TARA NGO ([id number]) [facility]) [address] [place] [address] 33513 Basic metabolic 2000 panelon 10-13-2023 Anion gap [Moles/Vol] 11 mmol/L Normal 10-20 [facility] Comment on above: Performed By: #### 2 4321-2 #### TARA NGO ([id number]) [facility]) [address] [place] [address] 16023 Calcium [Mass/Vol] 8.6 mg/dL Normal 8.6-10.3 [facility] Comment on above: Performed By: #### 2 4321-2 #### TARA NGO ([id number]) [facility]) [address] [place] [address] 07794 Chloride [Moles/Vol] 102 mmol/L Normal 98-107 [facility] Comment on above: Performed By: #### 2 4321-2 #### TARA NGO ([id number]) [facility]) [address] [place] [address] CO2 [Moles/Vol] 29 mmol/L Normal 21-32 [facility] Comment on above: Performed By: #### 2 4321-2 #### RACHELIBMIAH NGO ([id number]) [facility]) [address] [place] [address] Creatinine [Mass/Vol] 1.06 mg/dL Normal 0.50-1.30 [facility] Comment on above: Performed By: #### 2 4321-2 #### TARA NGO ([id number]) [facility] ([facility]) [address] [place] [address] 06410 Glomerular filtration rate/1.73 sq M.predicted 76 mL/min/1.73m*2 Normal >60 [facility] Comment on above: Result Comment: Calc ulations of estimated GFR are performed using the 2020 CKD-EPI Study Refit equation without the race variable for the IDMS-Traceable creatinine methods. https://jasn.asnjournals.org/content/early//ASN.52380 31585 Performed By: #### 2 4321-2 #### TARA NGO ([id number]) [facility] ([facility]) [address] [place] [address] 96564 Glucose [Mass/Vol] 73 mg/dL Low 74-99 [facility] Comment on above: Performed By: #### 2 4321-2 #### RACHELIBMIAH MUNGUIA RIO JANETTE ([id number]) [facility] ([facility]) [address] [place] [address] 17953 Potassium [Moles/Vol] 4.1 mmol/L Normal 3.5-5.3 [facility] Comment on above: Performed By: #### 2 4321-2 #### RACHELIBELISANTA MUNGUIATAMIE JANETTE ([id number]) [facility] ([facility]) [address] [place] [address] 34899 Sodium [Moles/Vol] 138 mmol/L Normal 136-145 [facility] Comment on above: Performed By: #### 2 4321-2 #### TARA NGO ([id number]) [facility]) [address] [place] [address] Urea nitrogen [Mass/Vol] 29 mg/dL High 6-23 [facility] Comment on above: Performed By: #### 2 4321-2 #### TARA NGO ([id number]) [facility]) [address] [place] [address] ECG 12-LEADon 10-13-2023 ECG 12-LEAD Ventricular Rate 75 Atrial Rate 75 P-R Interval 172 QRS Duration 112 Q-T Interval 390 QTC Calculation(Bazett) 435 P [place] 57 R [place] -54 T [place] -12 QRS Count 13 Q Onset 211 P Onset 125 P Offset 189 T Offset 406 QTC Fredericia 419 Diagnosis Normal sinus rhythm Left axis deviation Nonspecific T wave abnormality Abnormal ECG When compared with ECG of 13-OCT-2023 07:16, (unconfirmed) Sinus rhythm has replaced Atrial flutter ST no longer depressed in Anterior leads Confirmed by Sandra Plunkett ([id number]) on 10/16/2023 6:05:45 PM Normal [facility] ECG 12-LEAD Ventricular Rate 109 Atrial Rate 227 QRS Duration 102 Q-T Interval 362 QTC Calculation(Bazett) 487 R [place] -73 T [place] 7 QRS Count 18 Q Onset 212 T Offset 393 QTC Fredericia 441 Diagnosis Atrial flutter with variable AV block Left axis deviation Nonspecific ST abnormality Abnormal ECG When compared with ECG of 12-OCT-2023 23:14, (unconfirmed) No significant change was found Confirmed by Sandra Plunkett ([id number]) on 10/16/2023 2:09:21 PM Normal [facility] ECG 12-LEAD Ventricular Rate 117 Atrial Rate 117 P-R Interval 178 QRS Duration 98 Q-T Interval 332 QTC Calculation(Bazett) 463 R [place] -69 T [place] 33 QRS Count 19 Q Onset 214 P Onset 125 P Offset 185 T Offset 380 QTC Fredericia 415 Diagnosis Atrial flutter with 2 to 1 block Left axis deviation Incomplete right bundle branch block Nonspecific ST abnormality Abnormal ECG When compared with ECG of 12-OCT-2023 14:40, No significant change was found Confirmed by Sandra Plunkett ([id number]) on 10/15/2023 7:02:20 AM Normal [facility] Glucose Test strip manual (B ld) [Mass/Vol]on 10-13-2023 Glucose [Mass/Vol] 178 mg/dL High 74-99 [facility] Comment on above: Performed By: #### 3 4529-8 #### TARA NGO ([id number]) [facility]) [address] [place] [address] 87353 Glucose [Mass/Vol] 232 mg/dL High 7499 [facility] Comment on above: Performed By: #### 3 4529-8 #### TARA NGO ([id number]) [facility] ([facility]) [address] [place] [address] 89462 Glucose [Mass/Vol] 101 mg/dL High 7499 [facility] Comment on above: Performed By: #### 3 4529-8 #### TARA NGO ([id number]) [facility]) [address] [place] [address] 72048 Glucose [Mass/Vol] 97 mg/dL Normal 74-99 [facility] Comment on above: Performed By: #### 3 4529-8 #### TARA NGO ([id number]) [facility] ([facility]) [address] [place] [address] 82299 Glucose [Mass/Vol] 147 mg/dL High 74-99 [facility] Comment on above: Performed By: #### 2 341-6 #### TARA NGO ([id number]) [facility]) [address] [place] [address] 06057 Glucose [Mass/Vol] 66 mg/dL Low 74-99 [facility] Comment on above: Performed By: #### 2 341-6 #### TARA NGO ([id number]) [facility] ([facility]) [address] [place] [address] 66266 Magnesiumon 10-13-2023 Magnesium [Mass/Vol] 1.79 mg/dL Normal 1.60-2.40 [facility] Comment on above: Performed By: #### 1 9123-9 #### TARA NGO ([id number]) [facility]) [address] [place] [address] 34117 TRANSESOPHAGEAL ECHO (JASMYNE)on 10-13-2023 TRANSESOPHAGEAL ECHO (JASMYNE) [address] [address] TRANSESOPHAGEAL ECHOCARDIOGRAM REPORT Patient Name: OTILIO Kimball Physician: [id number] Dana Mas MD Study Date: 10/13/2023 Ordering Provider: [id number] ESTHER LÓPEZ MRN/PID: [id number] Fellow: Nurse: Raine Griffiths RN Date of /Age: 1 1955 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 years Gender: M Additional Staff: Height: 187.96 cm Admit Date: 10/12/2023 Weight: 107.05 kg Admission Status: Inpatient - Routine BSA: 2.33 m2 Department Location: [address] [place] [address] Blood Pressure: 140 /78 mmHg Study Type: TRANSESOPHAGEAL ECHO (JASMYNE) Diagnosis/ICD: Unspecified atrial fibrillation-I48.91 Indication: A-FIB CPT Codes: JASMYNE Complete-71995; Moderate Sedation Services initial 15 minutes patient >5 years-19056 Study Detail: The following Echo studies were [...] RV Syst Pressure: 26.0 mmHg (< 30mmHg) [id number] Dana Mas MD Electronically signed on 10/13/2023 at 11:56:54 AM Final Normal [facility] CBC panel Auto (Bld)on 10-12 Erythrocyte distribution width (RBC) [Ratio] 13.9 % Normal 11.5-14.5 [facility] Comment on above: Performed By: #### 5 8410-2 #### TARA NGO ([id number]) [facility]) [address] [place] [address] 22759 Hematocrit (Bld) [Volume fraction] 36.9 % Low 41.0-52.0 [facility] Comment on above: Performed By: #### 5 8410-2 #### TARA NGO ([id number]) [facility]) [address] [place] [address] 17305 Hemoglobin (Bld) [Mass/Vol] 11.7 g/dL Low 13.5-17.5 [facility] Comment on above: Performed By: #### 5 8410-2 #### TARA NGO ([id number]) [facility] ([facility]) [address] [place] [address] 81015 MCH (RBC) [Entitic mass] 28.1 pg Normal 26.0-34.0 [facility] Comment on above: Performed By: #### 5 8410-2 #### TARA NGO ([id number]) [facility]) [address] [place] [address] 05252 MCHC (RBC) [Mass/Vol] 31.7 g/dL Low 32.0-36.0 [facility] Comment on above: Performed By: #### 5 8410-2 #### TARA NGO ([id number]) [facility]) [address] [place] [address] 86458 MCV (RBC) [Entitic vol] 89 fL Normal 80-100 [facility] Comment on above: Performed By: #### 5 8410-2 #### TARA NGO ([id number]) [facility] ([facility]) [address] [place] [address] Nucleated RBC/100 WBC (Bld) [Ratio] 0.0 /100 WBCs Normal 0.0-0.0 [facility] Comment on above: Performed By: #### 5 8410-2 #### TARA NGO ([id number]) [facility]) [address] [place] [address] 61131 Platelets (Bld) [#/Vol] 224 x10*3/uL Normal 150-450 [facility] Comment on above: Performed By: #### 5 8410-2 #### TARA NGO ([id number]) [facility] ([facility]) [address] [place] [address] RBC (Bld) [#/Vol] 4.17 x10*6/uL Low 4.50-5.90 [facility] Comment on above: Performed By: #### 5 8410-2 #### TARA NGO ([id number]) [facility] ([facility]) [address] [place] [address] 72141 WBC (Bld) [#/Vol] 10.7 x10*3/uL Normal 4.4-11.3 [facility] Comment on above: Performed By: #### 5 8410-2 #### TARA NGO ([id number]) [facility] ([facility]) [address] [place] [address] 03236 Comprehensive metabolic 2000 panelon 01-08-2024 Albumin BCP dye [Mass/Vol] 3.7 g/dL Normal 3.4-5.0 [facility] Comment on above: Performed By: #### 2 4323-8 #### TARA NGO ([id number]) [facility] ([facility]) [address] [place] [address] 80955 ALP [Catalytic activity/Vol] 61 U/L Normal 33-136 [facility] Comment on above: Performed By: #### 2 4323-8 #### TARA NGO ([id number]) [facility] ([facility]) [address] [place] [address] 44336 ALT With P-5'-P [Catalytic activity/Vol] 18 U/L Normal 10-52 [facility] Comment on above: Result Comment: Tracey ents treated with Sulfasalazine may generate falsely decreased results for ALT. Performed By: #### 2 4323-8 #### TARA NGO ([id number]) [facility] ([facility]) [address] [place] [address] 58029 Anion gap [Moles/Vol] 13 mmol/L Normal 10-20 [facility] Comment on above: Performed By: #### 2 4323-8 #### TARA NGO ([id number]) [facility]) [address] [place] [address] 70645 AST With P-5'-P [Catalytic activity/Vol] 12 U/L Normal 9-39 [facility] Comment on above: Performed By: #### 2 4323-8 #### RACHELIBMIAH NGO ([id number]) [facility] ([facility]) [address] [place] [address] 06622 Bilirubin [Mass/Vol] 0.5 mg/dL Normal 0.0-1.2 [facility] Comment on above: Performed By: #### 2 4323-8 #### RACHELIBMIAH NGO ([id number]) [facility]) [address] [place] [address] 48765 Calcium [Mass/Vol] 8.9 mg/dL Normal 8.6-10.3 [facility] Comment on above: Performed By: #### 2 4323-8 #### TARA NGO ([id number]) [facility] ([facility]) [address] [place] [address] Chloride [Moles/Vol] 100 mmol/L Normal 98-107 [facility] Comment on above: Performed By: #### 2 4323-8 #### TARA NGO ([id number]) [facility]) [address] [place] [address] CO2 [Moles/Vol] 29 mmol/L Normal 21-32 [facility] Comment on above: Performed By: #### 2 4323-8 #### TARA NGO ([id number]) [facility] ([facility]) [address] [place] [address] Creatinine [Mass/Vol] 1.00 mg/dL Normal 0.50-1.30 [facility] Comment on above: Performed By: #### 2 4323-8 #### TARA NGO ([id number]) [facility] ([facility]) [address] [place] [address] 29293 Glomerular filtration rate/1.73 sq M.predicted 81 mL/min/1.73m*2 Normal >60 [facility] Comment on above: Result Comment: Calc ulations of estimated GFR are performed using the 2020 CKD-EPI Study Refit equation without the race variable for the IDMS-Traceable creatinine methods. https://jasn.asnjournals.org/content//ASN.80145 87242 Performed By: #### 2 4323-8 #### TARA NGO (05654) [facility] ([facility]) [address] [place] [address] Glucose [Mass/Vol] 107 mg/dL High 74-99 [facility] Comment on above: Performed By: #### 2 4323-8 #### TARA NGO ([id number]) [facility] ([facility]) [address] [place] [address] 75751 Potassium [Moles/Vol] 3.7 mmol/L Normal 3.5-5.3 [facility] Comment on above: Performed By: #### 2 4323-8 #### TARA NGO ([id number]) [facility] ([facility]) [address] [place] [address] 42066 Protein [Mass/Vol] 6.3 g/dL Low 6.4-8.2 [facility] Comment on above: Performed By: #### 2 4323-8 #### TARA NGO ([id number]) [facility] ([facility]) [address] [place] [address] 10413 Sodium [Moles/Vol] 138 mmol/L Normal 136-145 [facility] Comment on above: Performed By: #### 2 4323-8 #### TARA NGO ([id number]) [facility] ([facility]) [address] [place] [address] 21382 Urea nitrogen [Mass/Vol] 33 mg/dL High 6-23 [facility] Comment on above: Performed By: #### 2 4323-8 #### TARA NGO ([id number]) [facility] ([facility]) [address] [place] [address] 51104 ECG 12-LEADon 10-12-2023 ECG 12-LEAD Ventricular Rate 112 Atrial Rate 112 P-R Interval 200 QRS Duration 108 Q-T Interval 348 QTC Calculation(Bazett) 475 R [place] -61 T [place] 41 QRS Count 18 Q Onset 211 [...] is now Present Reconfirmed by Geovani Mack ([id number]) on 10/12/2023 3:47:44 PM Normal [facility] ECG 12-LEAD Ventricular Rate 113 Atrial Rate 226 QRS Duration 104 Q-T Interval 340 QTC Calculation(Bazett) 466 P [place] 259 R [place] -58 T [place] 9 QRS Count 19 Q Onset 211 [...] Mack ([id number]) on 10/12/2023 3:47:15 PM Normal [facility] Glucose Test strip manual (B ld) [Mass/Vol]on 10-12-2023 Glucose [Mass/Vol] 223 mg/dL High 74-99 [facility] Comment on above: Performed By: #### 2 341-6 #### TARA NGO ([id number]) [facility] ([facility]) [address] [place] [address] 07364 Magnesiumon 10-12-2023 Magnesium [Mass/Vol] 1.49 mg/dL Low 1.60-2.40 [facility] Comment on above: Performed By: #### 1 9123-9 #### TARA NGO ([id number]) [facility] ([facility]) [address] [place] [address] 79781 PT and aPTT panel Coag (PPP) on 10-12-2023 aPTT Coag (PPP) [Time] 29 s Normal 27-38 [facility] Comment on above: Order Comment: The A PTT is no longer used for monitoring Unfractionated Heparin Therapy. For monitoring Heparin Therapy, use the Heparin Assay. Performed By: #### 3 4529-8 #### TARA NGO ([id number]) [facility] ([facility]) [address] [place] [address] 82704 INR Coag (PPP) [Relative time] 1.1 Normal 0.9-1.1 [facility] Comment on above: Order Comment: The A PTT is no longer used for monitoring Unfractionated Heparin Therapy. For monitoring Heparin Therapy, use the Heparin Assay. Performed By: #### 3 4529-8 #### TARA NGO ([id number]) [facility] ([facility]) [address] [place] [address] 15782 PT Coag (PPP) [Time] 12.2 s Normal 9.8-12.8 [facility] Comment on above: Order Comment: The A PTT is no longer used for monitoring Unfractionated Heparin Therapy. For monitoring Heparin Therapy, use the Heparin Assay. Performed By: #### 3 4529-8 #### TARA NGO ([id number]) [facility] ([facility]) [address] [place] [address] 52767 TSH WITH REFLEX TO FREE T4 I F ABNORMALon 10-12-2023 TSH Qn 3.26 m[IU]/L Normal 0.44-3.98 [facility] Comment on above: Order Comment: TSH t esting is performed using different testing methodology at [facility] than at other [facility]. Direct result comparisons should only be made within the same method. Performed By: #### T HYDS #### TARA WE[place] JANETTE ([id number]) [facility] ([facility]) [address] [place] [address] 83267 ED Note-Physicianon 10-08-19 ED Note-Physician Basic Information Time Seen: Jered Chavis DO 10/07/2023 11:09 Chief Complaint Patient presents with daughter from [facility] and has loop monitor from [place] with 2 episode of ventricular tachyacardia History of Present Illness 67-year-old male to the emergency department chief complaint of abnormal loop recorder findings. He was called by the office of his special education supervisor and instructed to seek emergency care today. He is currently asymptomatic. Review of Systems A 10 point review of systems is negative except as noted above. Medical and Surgical History: Reviewed and noted Social history: Lives at home Tobacco: Denies Physical Exam Vitals & Measurements T: 36.6 ?C(Oral) HR: 111(Monitored) RR: 18 BP: 116/70 SpO2: 96% HT: 187.96 cm WT: 107.2 kg BMI: 30.34 VITALS: I have reviewed the triage vital signs. GENERAL: Well developed, well appearing adult in no acute distress. NEURO: Alert and oriented. Moves all extremities. Face is symmetric and expressive. EYES: PERRL. No scleral icterus or conjunctival injection. No discharge. HENT: Normocephalic, atraumatic. Hearing is grossly intact. Nares grossly patent and without discharge. Mucous membranes moist. NECK: No JVD. Patient moves neck without restriction. CARDIO: Rhythm regular. Normal rate. No murmur, rub, or gallop. Pulses equal bilaterally in the upper and lower extremity. No lower extremity edema. PULM: Lungs clear to auscultation in all cuello. No wheezes, rales, or rhonchi. No conversational dyspnea. No splinting, stridor, or accessory muscle use. GI/: Abdomen is soft and non-tender. Normoactive bowel sounds. EXTREMITIES: Symmetric muscle bulk. No joint swelling. No clubbing, cyanosis, or deformity. SKIN: Warm and dry. Normal turgor. No rash or lesions appreciated. PSYCH: Mood, affect, and interaction is appropriate to the setting. Medical Decision Making 67-year-old male to the emergency department chief complaint of abnormal loop recorder findings. Vital stable, the patient is afebrile. He is asymptomatic. Patient was reported to have 2 episodes that were concerning for ventricular tachycardia. He has a history of atrial fibrillation on Eliquis and metoprolol. CBC and chemistry are unremarkable. His troponin is negative. His magnesium is not optimized however not abnormal. His chest x-ray is without acute findings. EKG shows atrial fibrillation. I did call and discussed with the patient's special education supervisor Dr. Mack. He reports the patient likely had a run of atrial fibrillation with rapid ventricular response with aberrant conduction. Does not believe that this represented ventricular tachycardia. He is reassured by the workup today. He will see the patient in his office at 9:30 AM on Thursday. Patient and his daughter agree with this plan. Return precautions were discussed. All questions were answered. The patient was discharged back to his facility. Assessment/Plan Encounter for medical screening examination (Z13.9: Encounter for screening, unspecified) Orders: magnesium sulfate + Generic Diluent 50 mL, 2 gram = 50 mL, IV Piggyback, Once, Stop date 10/07/23 12:40:00 EST, STAT, Start date 10/07/23 12:40:00 EST, 25 mL/hr, Infuse over 2 hour(s), 10/07/23 12:40:00 EST Automated Diff Basic Metabolic Panel CBC w/ Auto Diff eGFR Hepatic Function Panel Lipase Level Magnesium Level PT & PTT Troponin 0 Hr. Troponin 3 Hr. XR Chest Single View Medications Administered Given premix generic diluent 50 mL + magnesium additive 2 gm, IV Piggyback Disposition Plan Discharge Prescription List Prescriptions No active prescription medications Follow-up With When Contact Information Geovani Mack In 3 days 10/10/2023 EST [address] , [address] [address]- [phone] Business (1) Additional Instructions: Follow-up with Dr. Mack in office on Thursday the at 9:30 AM. Return to the ED with new or worsening symptoms. Call the office of your primary care doctor to arrange for follow-up within the above-stated timeframe. Follow-up with your primary care doctor about this ED visit. You should review your labs, imaging, and diagnoses from this ED visit with your primary care physician. There are occasionally non-emergent findings that require additional follow-up after your ED visit. If you were prescribed medications you should discuss possible side-effects and drug interactions with your pharmacist. Call 911 or go to the nearest Emergency Department if you develop any new or worsening symptoms. Seek immediate medical attention if you develop: worsening chest pain, new chest pain, nausea, vomiting, weakness, numbness, tingling, excessive sweating, shortness of breath, difficulty breathing, loss of motion in your arms or legs, or any new or worsening symptoms. Patient Education Supraventricular Tachycardia, Adult Problem List/Past Medical History Ongoing A-fib CAD in [place] artery Chronic anemia Chronic GERD Dementia D (more content not included)... Normal [facility] Comment on above: Result Comment: Elec tronically Signed By: Jered Chavis DO\.br\Date and Time Signed: 10/07/23 23:11 EST Auto Diffon 10-07-2023 Basophils/100 WBC (Bld) 0.6 % Normal 0.0-2.0 [facility] Comment on above: Order Comment: Order Added by Discern Expert. Performed By: #### 1 [id number], 2140016, 9897132, 70705752, 1592746, 6154307, [id number], [id number] #### [facility] [address] [place] [address] Basophils/Leukocytes Auto (Bld) [Pure # fraction] 0.1 E9/L Normal 0.0-0.2 [facility] Comment on above: Order Comment: Order Added by Discern Expert. Performed By: #### 1 [id number], 7971276, 3894888, 33888016, 8300141, 9416826, 31819336, [id number] #### [facility] [address] [place] [address] 29301 Eosinophils/100 WBC (Bld) 3.0 % Normal 0.0-8.0 [facility] Comment on above: Order Comment: Order Added by Pearl Expert. Performed By: #### 1 [id number], 9048715, 9172325, 33680118, 0889900, 7850920, 44413878, 7767512 #### [facility] [address] [place] [address] 29965 Eosinophils/Leukocytes Auto (Bld) [Pure # fraction] 0.3 E9/L Normal 0.0-0.5 [facility] Comment on above: Order Comment: Order Added by Pearl Expert. Performed By: #### 1 [id number], 3973706, 6405486, 46973113, 5603613, 4330874, 46452324, 6468629 #### [facility] [address] [place] [address] 23264 Lymphocytes/100 WBC (Bld) 25.2 % Normal 14.0-50.0 [facility] Comment on above: Order Comment: Order Added by Pearl Expert. Performed By: #### 1 [id number], 0206342, 6079133, 07331491, 6497248, 0657578, 74892244, 8131825 #### [facility] [address] [place] [address] 24076 Lymphocytes/Leukocytes Auto (Bld) [Pure # fraction] 2.6 E9/L Normal 1.0-4.0 [facility] Comment on above: Order Comment: Order Added by Pearl Expert. Performed By: #### 1 [id number], 6616818, 9214602, 59055394, 2009107, 5240284, 43571462, 0414033 #### [facility] [address] [place] [address] Monocytes/100 WBC (Bld) 4.7 % Normal 4.0-14.0 [facility] Comment on above: Order Comment: Order Added by Pearl Expert. Performed By: #### 1 [id number], [id number], 8281089, 77366801, 2900818, 8534660, 67732840, 5481753 #### [facility] [address] [place] [address] Monocytes/Leukocytes Auto (Bld) [Pure # fraction] 0.5 E9/L Normal 0.2-1.0 [facility] Comment on above: Order Comment: Order Added by Pearl Expert. Performed By: #### 1 9148273, 9429640, 3631011, 55140379, 8388898, 3256586, 49798226, 1078950 #### [facility] [address] [place] [address] Neutrophils/100 WBC (Bld) 66.5 % Normal 36.0-75.0 [facility] Comment on above: Order Comment: Order Added by Pearl Expert. Performed By: #### 1 5491999, 1099548, 5603456, 55318133, 5532936, 7266560, 11204923, 8326952 #### [facility] [address] [place] [address] Neutrophils/Leukocytes Auto (Bld) [Pure # fraction] 6.8 E9/L Normal 2.0-7.5 [facility] Comment on above: Order Comment: Order Added by Pearl Expert. Performed By: #### 1 6334606, 3319734, 2703049, 91580377, 7218726, 0484733, 08886868, 4633570 #### [facility] [address] [place] [address] BMPon 10-07-2023 Anion gap [Moles/Vol] 12 mmol/L Normal 6-16 [facility] Comment on above: Performed By: #### 1 1148225, 5606704, 8410973, 90216876, 7758023, 9849509, 62639043, 6240327 #### [facility] [address] [place] [address] BUN/Creat Ratio 26 No Units High 10-20 [facility] Comment on above: Performed By: #### 1 6613095, 9116680, 9400996, 20368503, 3400748, 1628375, 43794310, 6676247 #### [facility] [address] [place] [address] Calcium [Mass/Vol] 8.7 mg/dL Low 8.9-11.1 [facility] Comment on above: Performed By: #### 1 2523761, 4498589, 3505941, 25407678, 8627536, 8587684, 39184903, 9933540 #### [facility] [address] [place] [address] Chloride [Moles/Vol] 102 mmol/L Normal 101-111 [facility] Comment on above: Performed By: #### 1 7086403, 0382744, 3717143, 35395175, 4474769, 3471655, 94657056, 0695875 #### [facility] [address] [place] [address] CO2 [Moles/Vol] 28 mmol/L Normal 21-[address] [facility] Comment on above: Performed By: #### 1 2223423, 9342128, 6917077, 91947593, 4338128, 0756583, 35985906, 4116023 #### [facility] [address] [place] [address] Creatinine [Mass/Vol] 0.9 mg/dL Normal 0.5-1.3 [facility] Comment on above: Performed By: #### 1 9850811, 5375705, 2367796, 11407095, 8928925, 2844531, 57017747, 8265084 #### [facility] [address] [place] [address] Glucose [Mass/Vol] 181 mg/dL Normal 55-199 [facility] Comment on above: Performed By: #### 1 9282691, 5936690, 0033597, 91499798, 0329094, 7369838, 01143207, 7774054 #### [facility] [address] [place] [address] Potassium [Moles/Vol] 4.4 mmol/L Normal 3.5-5.3 [facility] Comment on above: Performed By: #### 1 2618458, 7240045, 5210427, 50623109, 1661183, 1145802, 54263497, 8342370 #### [facility] [address] [place] [address] Sodium [Moles/Vol] 138 mmol/L Normal 135-145 [facility] Comment on above: Performed By: #### 1 4645977, 6052921, 4093015, 86634534, 7617601, 7708038, 41943143, 9065003 #### [facility] [address] [place] [address] Urea nitrogen [Mass/Vol] 23 mg/dL High 5-21 [facility] Comment on above: Performed By: #### 1 9061862, 8895353, 4956280, 87652906, 4727915, 7372921, 14637599, 9287903 #### [facility] [address] [place] [address] CBC w/ Auto Diffon 4 Erythrocyte distribution width (RBC) [Ratio] 14.4 % High 10.9-14.2 [facility] Comment on above: Performed By: #### 1 2792354, 4127895, 8394757, 29996416, 6287596, 1737879, 71929209, 2999711 #### [facility] [address] [place] [address] Hematocrit (Bld) [Volume fraction] 37.5 % Low 37.7-49.0 [facility] Comment on above: Performed By: #### 1 3141107, 3197418, 1614077, 83715900, 3257645, 5103501, 51703892, 5153874 #### [facility] [address] [place] [address] Hemoglobin (Bld) [Mass/Vol] 12.1 g/dL Low 13.5-17.5 [facility] Comment on above: Performed By: #### 1 1988386, 0021678, 6262209, 61959208, 8707939, 5111463, 78110677, 2508053 #### [facility] [address] [place] [address] MCH (RBC) [Entitic mass] 27.4 pg Normal 27.0-34.0 [facility] Comment on above: Performed By: #### 1 5384989, 7152646, 3287150, 68466976, 4096897, 2554673, 15880713, 9644597 #### [facility] [address] [place] [address] MCHC (RBC) [Mass/Vol] 32.1 g/dL Normal 31.4-36.0 [facility] Comment on above: Performed By: #### 1 8337373, 6240133, 5383578, 76060964, 4835554, 3168134, 22461585, 4404411 #### [facility] [address] [place] [address] MCV (RBC) [Entitic vol] 85.3 fL Normal 80.0-100.0 [facility] Comment on above: Performed By: #### 1 2753774, 3549074, 5771155, 38024591, 0031370, 2999664, 84568783, 4044928 #### [facility] [address] [place] [address] Platelet mean volume (Bld) [Entitic vol] 8.3 fL Normal 6.4-10.8 [facility] Comment on above: Performed By: #### 1 2270276, 7514841, 6164179, 62311812, 9126882, 6081637, 57973370, 0548512 #### [facility] [address] [place] [address] Platelets (Bld) [#/Vol] 273.0 E9/L Normal 150.0-500.0 [facility] Comment on above: Performed By: #### 1 2149711, 4293058, 8166672, 51354851, 2625773, 7960367, 26477616, 0091684 #### [facility] [address] [place] [address] RBC (Bld) [#/Vol] 4.4 E12/L Normal 4.3-5.9 [facility] Comment on above: Performed By: #### 1 6610704, 0127354, 5172414, 27624687, 9585811, 5579441, 25662683, 8867450 #### [facility] [address] [place] [address] WBC corrected for nucl RBC Auto (Bld) [#/Vol] 10.3 E9/L Normal 4.0-11.[address] [facility] Comment on above: Performed By: #### 1 2983486, 6711065, 8526410, 47867584, 2449554, 9928606, 97587770, 8032975 #### [facility] [address] [place] [address] Consent for Treatmenton Consent for Treatment [id number] 0TIFF Normal [facility] Discharge Instructionson Discharge Instructions [id number] TIFF Normal [facility] ED Clinical Summaryon 2023 ED Clinical Summary [address] [address] ED Clinical Summary Person Information Name: OTILIO SUAREZ/Farhana Age: 67 Years : 1955 Sex: Male Language: Ivorian PCP: HERMILO THORNE MD Marital Status: Visit Id: Visit Reason: Medical problem - major; Chest pain; MEDICAL PROBLEM Speciality: Acuity: 2 Enc Type: Emergency Med Service: Emergency Arrival: 10/07/2023 10:56:12 Discharge: 10/07/2023 15:17:37 LOS: 000 04:21 Checkin: 10/07/2023 10:56:12 Checkout: 10/07/2023 15:17:37 Dispo Type: Home (Routine DC) EVENTS: Event Name Event Status Request Date/Time Start Date/Time Complete Date/Time Arrive Complete 10/07/2023 10:56:12 10/07/2023 10:56:12 10/07/2023 10:56:12 Document Home Meds Request 10/07/2023 10:56:12 Triage Complete 10/07/2023 10:56:12 10/07/2023 11:13:24 10/07/2023 11:13:24 Bed Assign Complete 10/07/2023 11:05:12 10/07/2023 11:05:12 10/07/2023 11:05:12 Dr Exam Complete 10/07/2023 11:05:12 10/07/2023 11:09:02 10/07/2023 11:09:02 RN Exam Complete 10/07/2023 11:05:12 10/07/2023 11:27:43 10/07/2023 11:27:43 Registration Complete 10/07/2023 11:05:27 10/07/2023 11:05:27 10/07/2023 11:05:27 Reg Complete Request 10/07/2023 11:05:27 Reg Bed Request Complete 10/07/2023 11:05:27 10/07/2023 11:05:27 10/07/2023 11:05:27 EKG Complete 10/07/2023 11:08:05 10/07/2023 11:13:54 Registration Complete 10/07/2023 11:09:02 10/07/2023 12:55:44 10/07/2023 12:55:44 Pending Labs Complete 10/07/2023 11:19:06 10/07/2023 15:15:23 Lab Complete 10/07/2023 11:19:06 10/07/2023 12:31:12 Patient Care Request 10/07/2023 11:19:06 RT Request 10/07/2023 11:19:06 X-Ray Complete 10/07/2023 11:19:06 10/07/2023 11:19:40 10/07/2023 11:26:20 Wet Read Request 10/07/2023 11:26:20 Pending Labs Complete 10/07/2023 11:58:05 10/07/2023 11:58:05 10/07/2023 12:31:12 Lab Complete 10/07/2023 11:58:05 10/07/2023 11:58:05 10/07/2023 12:31:12 Pending Labs Complete 10/07/2023 12:03:17 10/07/2023 12:03:17 10/07/2023 12:03:25 Lab Complete 10/07/2023 12:03:17 10/07/2023 12:03:17 10/07/2023 12:03:25 Meds Admin Complete 10/07/2023 12:40:21 10/07/2023 12:57:55 Consult Request 10/07/2023 12:52:13 Hospitalist Consult Cancel 10/07/2023 12:52:13 10/07/2023 14:56:47 Patient Care Request 10/07/2023 12:55:44 Patient Care Request 10/07/2023 12:55:45 Patient Care Request 10/07/2023 12:55:45 Patient Care Request 10/07/2023 12:55:45 Discharge Complete 10/07/2023 14:59:49 10/07/2023 15:17:41 10/07/2023 15:17:41 Transfer Complete 10/07/2023 15:17:41 10/07/2023 15:17:41 10/07/2023 15:17:41 ADDRESS: [address] [place] [id number] PHYS DOC NOTES: MEDICAL INFORMATION: Prescriptions Given: Medications to Continue with No Changes Other Medications acetaminophen (acetaminophen 325 mg Tab) 2 Tablets By Mouth every 6 hours as needed Pain. aspirin (aspirin 81 mg Oral EC Tab) 1 Tablets By Mouth every day. Refills: 0. cholecalciferol (cholecalciferol 1000 intl units (25 mcg) oral tablet) 1 Tablets By Mouth every day. Refills: 0. dulaglutide (Trulicity Pen 0.75 mg/0.5 mL subcutaneous solution) 0.75 Milligram Subcutaneous Thursday. furosemide (furosemide 20 mg Tab) 1 Tablets By Mouth every day as needed Edema. levetiracetam (levETIRAcetam 750 mg oral tablet, dispersible) 1 Tablets By Mouth 2 times a day. loratadine (loratadine 10 mg Tab) 1 Tablets By Mouth every day as needed Itching. magnesium oxide (magnesium oxide 400 mg Tab) 1 Tablets By Mouth every day. Refills: 0. metformin (metformin 1000 mg oral tablet, extended release) 1 Tablets By Mouth 2 times a day. Refills: 0. midodrine (midodrine 5 mg Tab) 1 Tablets By Mouth 3 times a day. Refills: 0. omeprazole (omeprazole 20 mg Cap-DR) 1 Capsules By Mouth every day. pravastatin (pravastatin 40 mg Tab) 1 Tablets By Mouth once a day (at bedtime). PATIENT EDUCATION INFORMATION: Instructions: Supraventricular Tachycardia, Adult Follow up: With: Address: When: Geovani Mack [address] [place], [place] [phone] Business (1) In 3 days 10/10/2023 Comments: Follow-up with Dr. Mack in office on Thursday the at 9:30 AM. Return to the ED with new or worsening symptoms. Call the office of your primary care doctor to arrange for follow-up within the above-stated timeframe. Follow-up with your primary care doctor about this ED visit. You should review your labs, imaging, and diagnoses from this ED visit with your primary care physician. There are occasionally non-emergent findings that require additional follow-up after your ED visit. If you were prescribed medications you should discuss possible side-effects and drug interactions with your pharmacist. Call 911 or go to the nearest Emergency Department if you develop any new or worsening symptoms. Seek immediate medical attention if you develop: worsening chest pain, new chest pain, nausea, vomiting, weakness, numbness, tingling, excessive sweating, shortness of breath, difficulty breathing, loss of motion in your arms (more content not included)... Normal [facility] ED Patient Education Noteon 10-07-2023 ED Patient Education Note Cardiovascular Supraventricular Tachycardia, Adult Supraventricular tachycardia (SVT) is a type of abnormal heart rhythm. It causes the heart to beat very quickly. SVT can start suddenly and last for a short time, which is called paroxysmal SVT, or it may last longer and require specialized treatment to return the heart rhythm to normal. A normal resting heart rate is 60?100 beats per minute. During an episode of SVT, your heart rate may be higher than 150 beats per minute. Episodes of SVT can be frightening, but they are usually not dangerous. However, if episodes happen several times a day or last longer than a few seconds, they may lead to heart failure. What are the causes? Usually, a normal heartbeat starts when an area called the sinoatrial node releases an electrical signal. In SVT, other areas of the heart send out electrical signals that interfere with the signal from the sinoatrial node. The cause of this abnormal electrical activity is not known. What increases the risk? You are more likely to develop this condition if you are: ? Middle aged or younger. ? Female. The following factors may also make you more likely to develop this condition: ? Stress or anxiety. ? Tiredness. ? Smoking. ? Stimulant drugs, such as cocaine and methamphetamine. ? Alcohol. ? Caffeine. ? . ? Having any of these conditions: ? A thyroid condition. ? Diabetes mellitus. ? Obstructive sleep apnea. What are the signs or symptoms? Symptoms of this condition include: ? A pounding heart. ? A feeling that the heart is skipping beats (palpitations). ? Weakness. ? Shortness of breath. ? Tightness or pain in your chest. ? Light-headedness or dizziness. ? Anxiety. ? Sweating. ? Nausea. ? Fainting. ? Fatigue or tiredness. A mild episode may not cause symptoms. How is this diagnosed? This condition may be diagnosed based on: ? Your symptoms. ? A physical exam. If you have an episode of SVT during the exam, the health care provider may be able to diagnose SVT by listening to your heart and feeling your pulse. ? Tests. These may include: ? An electrocardiogram (ECG). This test is done to check for problems with electrical activity in the heart. ? A Holter monitor or event monitor test. This test involves wearing a portable device that monitors your heart rate over time. ? An echocardiogram. This test involves taking an image of your heart using sound waves. It is done to rule out other causes of a fast heart rate. ? A stress echocardiogram. This test involves doing an echocardiogram when you are at rest and after exercise. ? Blood tests. ? An electrophysiology study (EPS). This tests the electrical activity in your heart to find where the abnormal heart rhythm is coming from using cardiac catheters. How is this treated? This condition may be treated with: ? Vagal nerve stimulation. This involves stimulating your vagus nerve, which is a nerve that runs from the chest, through the neck, to the lower part of the brain. Stimulating this nerve can slow down the heart. It is often the first and only treatment that is needed for this condition. Work with your health care provider to find which technique works best for you. Ways to do this treatment include: ? Laying on your back, then holding your breath and pushing, as though you are having a bowel movement. ? Massaging an area on one side of your neck, below your jaw. Do not try this yourself. Only a health care provider should do this. If done the wrong way, it can lead to a stroke. ? Bending forward with your head between your legs. ? Coughing while bending forward with your head between your legs. ? Applying an ice-cold, wet towel to your face. ? Medicines that prevent attacks. ? Medicine to stop an attack. The medicine is given through an IV at the hospital. ? A small electric shock (cardioversion) that stops an attack. Before you get the shock, you will get medicine to make you fall asleep. ? Radiofrequency ablation. In this procedure, a small, thin tube (catheter) is used to send radiofrequency energy to the area of tissue that is causing the rapid heartbeats. The energy kills the cells and helps your heart keep a normal rhythm. You may have this treatment if you have symptoms of SVT often. If you do not have symptoms, you may not need treatment. Follow these instructions at home: Stress ? Avoid stressful situations when possible. ? Find healthy ways of managing stress, such as: ? Taking part in relaxing activities, such as yoga, meditation, or being out in nature. ? Listening to relaxing music. ? Practicing relaxation techniques, such as deep breathing. ? Leading a healthy lifestyle. This involves getting plenty of sleep, exercising, and eating a balanced diet. ? Attending counseling or talk therapy with a mental health professional. Lifestyle ? Try to get at least (more content not included)... Normal [facility] ED Patient Summaryon 024 ED Patient Summary [place] [address] Patient Discharge Instructions Person Information Name: OTILIO SUAREZ Age: 67 Years Arrival Date: 10/07/2023 10:56:12 Discharge Diagnosis: Encounter for medical screening examination Primary Care Physician: HERMILO THORNE MD Provider Information Primary Provider: Jered Chavis DO Advanced State Inspector:None The exam and treatment you received in the Emergency Department were for an urgent problem and are not intended as complete care. It is important that you follow up with a doctor, nurse practitioner, or physician?s dental hygiene administrative assistant for ongoing care. If your symptoms become worse or you do not improve as expected and you are unable to reach your usual health care provider, you should return to the Emergency Department. We are available 24 hours a day. OTILIO SUAREZ has been given the following list of patient education materials, prescriptions and follow-up instructions: Follow-up Instructions: With: Address: When: Geovani Mack [address] [place] [id number] [phone] [facility] (1) In 3 days 10/10/2023 Comments: Follow-up with Dr. Mack in office on Thursday the at 9:30 AM. Return to the ED with new or worsening symptoms. Call the office of your primary care doctor to arrange for follow-up within the above-stated timeframe. Follow-up with your primary care doctor about this ED visit. You should review your labs, imaging, and diagnoses from this ED visit with your primary care physician. There are occasionally non-emergent findings that require additional follow-up after your ED visit. If you were prescribed medications you should discuss possible side-effects and drug interactions with your pharmacist. Call 911 or go to the nearest Emergency Department if you develop any new or worsening symptoms. Seek immediate medical attention if you develop: worsening chest pain, new chest pain, nausea, vomiting, weakness, numbness, tingling, excessive sweating, shortness of breath, difficulty breathing, loss of motion in your arms or legs, or any new or worsening symptoms. In the event that this physician does not participate in your insurance network, please consult with your insurance company to find a nearby participating provider. Patient Education Materials: Supraventricular Tachycardia, Adult A MESSAGE TO ALL PATIENTS REGARDING OPIOIDS PRESCRIPTION OPIOIDS: WHAT YOU NEED TO KNOW Prescription opioids can be used to help relieve lddhofic-nl-tzcrql pain and are often prescribed following a surgery or injury, or for certain health conditions. These medications can be an important part of the treatment but also come with serious risks. It is important to work with your healthcare provider to make sure you are getting the safest, most effective care. WHAT ARE THE RISKS AND SIDE EFFECTS OF OPIOID USE? Prescription opioids carry serious risks of addiction and overdose, especially with prolonged use. An opioid overdose, often marked by slowed breathing, can cause sudden . The use of prescription opioids can have a number of side effects as well, even when taken as directed: ? Tolerance?meaning you might need to take more of the medication for the same pain relief ? Physical dependence?meaning you have symptoms of withdrawal when a medication is stopped ? Increased sensitivity to pain ? Constipation ? Nausea, vomiting, and dry mouth ? Sleepiness and dizziness ? Confusion ? Depression ? Low levels of testosterone that can result in lower sex drive, energy, and strength ? Itching and sweating RISKS ARE GREATER WITH: ? History of drug misuse, substance use disorder, or overdose ? Mental health conditions (such as depression or anxiety) ? Sleep apnea ? Older age (65 years and older) ? Avoid alcohol while taking prescription opioids. Also, unless specifically advised by your health care provider, medications to avoid include: ? Benzodiazepines (such as Xanax or Valium) ? Muscle relaxants (such as Soma or Flexeril) ? Hypnotics (such as Ambien or Lunesta) ? Other prescription opioids KNOW YOUR OPTIONS Talk to your health care provider about ways to manage your pain that don?t involve prescription opioids. Some of these options may actually work better and have fewer risks and side effects. Options may include: ? Pain relievers such as acetaminophen, ibuprofen, and naproxen ? Some medication that are also used for depression or seizures ? Physical therapy and exercise ? Cognitive behavioral therapy, a psychological, goal-directed approach, in which patients learn how to modify physical, behavioral, and emotional triggers of pain and stress. IF YOU ARE PRESCRIBED OPIOIDS FOR PAIN: ? Never take opioids in greater amounts or more often than prescribed. ? Follow up with your primary health care provider. o W (more content not included)... Normal [facility] Hep Func Panelon 10-07-2023 Albumin [Mass/Vol] 3.6 g/dL Normal 3.3-5.0 [facility] Comment on above: Performed By: #### 1 [id number], 2612879, 4427295, 69797515, 4627993, 4115228, 99328784, 5365263 #### [facility] [address] [place] [address] Albumin/Globulin [Mass ratio] 1.4 {ratio} Normal 1.1-2.2 [facility] Comment on above: Performed By: #### 1 2313653, 3064259, 2450491, 99215495, 0419098, 2887573, 14349935, 5914643 #### [facility] [address] [place] [address] Alk Phos 62 Int._Unit/L Normal 21-98 [facility] Comment on above: Performed By: #### 1 2923524, 5739804, 7670262, 22668504, 2724374, 9771406, 47681314, 8749794 #### [facility] [address] [place] [address] ALT 13 Int._Unit/L Normal 6-46 [facility] Comment on above: Performed By: #### 1 9716815, 8237106, 0873427, 37072284, 9970602, 8024833, 69913234, 8360150 #### [facility] [address] [place], [place] [id number] AST 11 Int._Unit/L Normal 5-43 [facility] Comment on above: Performed By: #### 1 0951596, 9387024, 1077549, 56742557, 0430065, 6800139, 30007092, 6310398 #### [facility] [address] [place] [address] Bili Direct 0.1 mg/dL Normal 0.0-0.4 [facility] Comment on above: Performed By: #### 1 5303154, 0029151, 3824596, 46839035, 5905164, 9238684, 36593100, 3961690 #### [facility] [address] [place] [address] Bili Indirect 0.3 mg/dL Normal 0.1-0.9 [facility] Comment on above: Performed By: #### 1 3806804, 3601086, 7741583, 64547381, 7742666, 0498511, 78616592, 4364409 #### [facility] [address] [place] [address] Bili Total 0.4 mg/dL Normal 0.0-1.1 [facility] Comment on above: Performed By: #### 1 0713381, 9736125, 1234074, 07297214, 7265375, 0168449, 47950549, 2268142 #### [facility] [address] [place] [address] Globulin (S) [Mass/Vol] 2.5 g/dL Normal 1.4-4.0 [facility] Comment on above: Performed By: #### 1 1890519, 0514095, 7701612, 37117565, 8507811, 4715132, 59835632, 5944631 #### [facility] [address] [place], [place] [address] Protein [Mass/Vol] 6.1 g/dL Normal 6.0-7.8 [facility] Comment on above: Performed By: #### 1 2188604, 2227347, 7978981, 38880687, 4529556, 9914523, 27249020, 0156597 #### [facility] [address] [id number] Lipase Levelon 10-07-2023 Lipase Lvl 15 unit/L Normal 13-58 [facility] Comment on above: Performed By: #### 1 [id number], [id number], 1681130, 16935776, 5634343, 5683293, 17579816, 6793653 #### [facility] [address] [place] [address] Magnesiumon 10-07-2023 Magnesium [Mass/Vol] 1.6 mg/dL Normal 1.3-2.4 [facility] Comment on above: Performed By: #### 1 [id number], 1200515, 5982577, 85619178, 0406060, 9022648, 37943727, 9866769 #### [facility] [address] [place] [address] Medication Listson Medication Lists [id number] TIFF Normal [facility] Monitor Recordon 10-07-2023 Monitor Record [id number]. 00TIFF Normal [facility] Outside Recordson 10-07-2023 Outside Records [id number]#[id number] TIFF Normal [facility] PT & PTTon 10-07-2023 aPTT Coag (PPP) [Time] 30.0 second(s) Normal 25.1-36.5 [facility] Comment on above: Result Comment: Para meter [...] the same coagulation reagent and instrumentation as [facility]. Currently there are no coagulation studies available worldwide for children to 14 days, and no normal ranges. Heparin therapeutic range (represented by Anti-Factor Xa activity of 0.2 - 0.4 U/mL) corresponds to PTT of 56.6 - 109.0 sec. Performed By: #### 1 [id number], 1190399, 6074718, 28767201, 1231296, 8525729, 43705846, 6971134 #### [facility] [address] [place] [address] INR Coag (PPP) [Relative time] 1.1 {INR} Invalid Interpretation Code [facility] Comment on above: Result Comment: INR results are specifically intended to assess patients stabilized on long-term Anticoagulation therapy suggested INR?s ?Less Intensive Anticoagulation? 2.0 ? 3.0 Conventional Range 3.0 ? 4.5 Performed By: #### 1 1078604, 9407436, 5534790, 79017219, 8568143, 0035915, 09003634, 8316999 #### [facility] [address] [place] [address] PT Coag (PPP) [Time] 12.5 second(s) Normal 9.4-12.5 [facility] Comment on above: Result Comment: 15 d [...] the same coagulation reagent and instrumentation as [facility]. Currently there are no coagulation studies available worldwide for children to 14 days, and no normal ranges. Performed By: #### 1 5608938, 4254037, 7813877, 53903114, 9534374, 9799287, 57645706, 4480882 #### [facility] [address] [place] [address] Progress Note-Nurseon 2023 Progress Note-Nurse ECG delayed due to complaints of chest pain not till patient in room 5 Normal [facility] Troponin 0 Hr.on 10-07-2023 Troponin 9.90 pg/mL Low 15.90-38.40 [facility] Comment on above: Result Comment: The 95% CI (Confidence Interval) PPV (Positive Predictive Value) for myocardial infarction in females is 38 pg/mL, in males 51 pg/mL. The results should be used in conjunction with clinical conditions of myocardial infarction. (Access High Sensitivity Troponin I Instructions For Use, [employer], May 2018) Performed By: #### 1 1678826, 7798730, 1554404, 67568857, 7694641, 4250983, 84797753, 5932151 #### [facility] [address] [place] [address] Troponin 3 Hr.on 10-07-2023 Troponin 8.60 pg/mL Low 15.90-38.40 [facility] Comment on above: Result Comment: The 95% CI (Confidence Interval) PPV (Positive Predictive Value) for myocardial infarction in females is 38 pg/mL, in males 51 pg/mL. The results should be used in conjunction with clinical conditions of myocardial infarction. (Access High Sensitivity Troponin I Instructions For Use, [employer], May 2018) Performed By: #### 1 [id number], 1952698, 0570345, 59512752, 7412124, 2117606, 73285525, 5159775 #### [facility] [address] [place] [address] XR Chest Single Viewon 10-07 XR Chest Single View Exam Date/Time: 10/07/2023 11:26 EST Reason for Exam: Chest pain Report IMPRESSION: STABLE CARDIOMEGALY. CLINICAL HISTORY: Chest pain COMPARISON: February 17, 2023 FINDINGS: site monitor overlies left lower lung. Osseous structures intact. Cardiopericardial silhouette enlarged, unchanged. Lungs clear. Ordering Provider: Jered Chavis FINAL REPORT Dictated: 10/07/2023 12:36 pm Rocky Aguilar MD Signed (Electronic Signature): 10/07/2023 12:36 pm Signed by: Rocky Aguilar MD Transcribed by: TREVIN Technologist: TEX Technical Comments Radiation Dose: Ka,r in mGy = na DAP = na Normal [facility] eGFRon 10-07-2023 GFR/1.73 sq M.predicted among non-blacks MDRD (S/P/Bld) [Vol rate/Area] mL/min/{1.73_m2} Normal >=59 [facility] Comment on above: Order Comment: Order Added by Discern Expert. Performed By: #### 1 [id number], 6416174, 3056612, 89289227, 6965411, 3698290, 18824902, 7700953 #### [facility] [address] [place] [address] ECG 12 Leadon 09-16-2023 EKG shows possibilit y of atrial fibrillation but cannot rule out also atrial flutter atypical with 221 AV conduction rate of 112 bpm QRS 100 ms QT corrected 164 ms. Rhythm strip shows the same pattern. [facility] Work Phone: [facility] Work Phone: Heart and Vascular Office/Cl inic Noteon 08-29-2023 Heart and Vascular Office/Clinic Note Chief Complaint 3 month f/u afib History of Present Illness Otilio Suarez is a 67-year-old male patient with a history of PAF on Eliquis previously, but taken off due to falls. He does have a history of hypertension, hyperlipidemia, chronic diastolic heart failure, diabetes, and history of CAD with recent negative stress test. He also seems to have recurrent syncope. His most recent visit was with me. He was referred to Dr. Mack who did not put a pacemaker. He has autonomic insufficiency. I last saw him in 03/2023. He is accompanied by an adult female. The patient is doing well. He notes that the medications adjustment was beneficial to his syncopal episodes. He had a loop monitor implanted on 04/2023 and has a follow-up appointment on 08/12/2023. He was advice not to take the medication if his blood pressure over 150 mmHg; if his blood pressure is under 150 mmHg, he was advice to take midodrine thrice daily. He reports that he is having mild chest pain today all day. 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 Review of Systems Constitutional: no fever, no sweats, no weakness Skin: no rash, no lesions, no bruising/petechiae ENMT: no sore throat, no congestion, no hoarseness Respiratory: no shortness of breath, no cough, no orthopnea, no wheezing Cardiovascular: Positive for chest pain, no palpitations, no edema Gastrointestinal: no nausea, no vomiting, no diarrhea, no GI bleeding Genitourinary: no anuria/oliguria no hematuria Musculoskeletal: no back pain, no trauma Neurologic: no headache, no dizziness, no numbness, no weakness Psychiatric: no sleeping problems, no irritability, no anxiety/depression. Heme/Lymph: no bleeding tendency, no bruising tendency Allergy/Immunologic: no recurrent infections, no impaired immunity Additional ROS info: Except as noted in the above Review of Systems and in the History of Present Illness all other systems have been reviewed and are negative or noncontributory Physical Exam Vitals & Measurements HR: 70(Peripheral) BP: 118/62 SpO2: 96% HT: 73 in HT: 185 cm General: alert, no acute distress Skin: warm, dry intact Head: atraumatic, normocephalic Neck: trachea midline, no JVD, no bruit Eye: normal conjunctiva, sclera clear ENMT: oral mucosa moist Cardiovascular: regular rate and rhythm, no murmur, normal peripheral perfusion Respiratory: lungs CTA, respirations non labored Chest wall: no deformity. Gastrointestinal: soft, non-distended, no tenderness, no guarding. Back: no tenderness, normal ROM, normal alignment. Extremities: no edema, no deformity, no trauma Neurological: oriented x 4, LOC appropriate for age, sensation equal & normal bilaterally, speech normal Psychiatric: cooperative, affect appropriate for age, normal judgement, normal psychiatric thoughts. Assessment/Plan Afib (I48.91: Unspecified atrial fibrillation) Otilio Suarez is a 67-year-old male with a history of PAF, on Eliquis previously, but taken off due to falls. He does have a history of hypertension, hyperlipidemia, chronic diastolic heart failure, diabetes, and history of CAD with recent negative stress test. Follow up in 6 months. Portions of this record may have been created with voice recognition artificial intelligence software, specifically [employer], [employer] and or [employer]. Substitutions may have occurred with voice recognition and artificial intelligence software. ATTESTATION: Documentation services were performed after patient or guardian consented to allow [employer] to record this visit. COTY internal communications specialist and provider reviewed before signing. COTY: Ryan Denney. / Pasted by: Deonte Remy Follow-up No qualifying data available Problem List/Past Medical History Ongoing A-fib CAD in [place] artery Chronic anemia Chronic GERD Dementia Diabetes Diastolic heart failure Hyperlipidemia Hypertension Obesity Peripheral neuropathy Seizure Type 2 diabetes mellitus Historical No qualifying data Procedure/Surgical History None of the following diagnostic imaging studies ordered: chest X-ray, CT, Ultrasound, MRI, PET, or nuclear medicine scans (ML). Medications acetaminophen 325 mg Tab, 650 mg= 2 tab(s), Oral, q6hr, PRN aspirin 81 mg Oral EC Tab, 81 mg= 1 tab(s), Oral, Daily cholecalciferol 1000 intl units (25 mcg) oral tablet, 25 mcg= 1 tab(s), Oral, Daily furosemide 20 mg Tab, 20 mg= 1 tab(s), Oral, Daily, PRN levETIRAcetam 750 mg oral tablet, dispersible, 750 mg= 1 tab(s), Oral, BID loratadine 10 mg Tab, 10 mg= 1 tab(s), Oral, Daily, PRN magnesium oxide 400 mg Tab, 400 mg= 1 tab(s), Oral, Daily metformin 1000 mg oral tablet, extended release, 1000 mg= 1 tab(s), Oral, BID midodrine 5 mg Tab, 5 mg= 1 tab(s), Oral, TID omeprazole 20 mg Cap-DR, 20 mg= 1 cap(s), Oral, Daily pravastatin 40 mg Tab, 40 mg= 1 tab(s), Oral, Once a day (at bedtime) Trulicity Pen 0.75 m (more content not included)... Normal [facility] Comment on above: Result Comment: Elec tronically Signed By: Zia LEMONS, Jaja Dash\.br\Date and Time Signed: 08/29/23 11:45 EST\.br\Electronically Co-Signed By: Deonte Remy\.br\Date and Time Co-Signed: 06/25/23 18:47 EDT Cardiac Device Check - Remot amanda 07-16-2023 Radiology Study observation (narrative) [facility] Work Phone: Cardiac Device Check - Remot eOrdered By: Geovani Mack on 07-16-2023 [facility] Work Phone: Physician Orderon 06-26-2023 Physician Order [id number] [id number] Normal [facility] Ambulatory Visit Summaryon 0 06-25-2023 Ambulatory Visit Summary OTILIO SUAREZ :1955 Visit Date:06/25/2023 Ambulatory Visit Instructions Your Diagnosis Afib Your Care Team Attending Physician - Zia LEMONS, Jaja Dash Primary Care Physician - HERMILO THORNE MD Referring Physician - NONE, XXXX This Is Your Medications List acetaminophen (acetaminophen 325 mg Tab) aspirin (aspirin 81 mg Oral EC Tab) cholecalciferol (cholecalciferol 1000 intl units (25 mcg) oral tablet) dulaglutide (Trulicity Pen 0.75 mg/0.5 mL subcutaneous solution) furosemide (furosemide 20 mg Tab) levetiracetam (levETIRAcetam 750 mg oral tablet, dispersible) loratadine (loratadine 10 mg Tab) magnesium oxide (magnesium oxide 400 mg Tab) metformin (metformin 1000 mg oral tablet, extended release) midodrine (midodrine 5 mg Tab) omeprazole (omeprazole 20 mg Cap-DR) pravastatin (pravastatin 40 mg Tab) Procedures Performed None of the following diagnostic imaging studies ordered: chest X-ray, CT, Ultrasound, MRI, PET, or nuclear medicine scans (ML). Discharge Vitals Heart Rate (Peripheral) 70 Blood Pressure 118/62 Height 185 cm Height 73 in Medications What How Much When Instructions Unchanged acetaminophen (acetaminophen 325 mg Tab) 2 Tablets By Mouth Every 6 hours as needed for Pain Unchanged aspirin (aspirin 81 mg Oral EC Tab) 1 Tablets By Mouth Every day Unchanged cholecalciferol (cholecalciferol 1000 intl units (25 mcg) oral tablet) 1 Tablets By Mouth Every day Unchanged dulaglutide (Trulicity Pen 0.75 mg/ 0.5 mL subcutaneous solution) 0.75 Milligram Subcutaneous Thursday Unchanged furosemide (furosemide 20 mg Tab) 1 Tablets By Mouth Every day as needed for Edema Unchanged levetiracetam (levETIRAcetam 750 mg oral tablet, dispersible) 1 Tablets By Mouth 2 times a day Unchanged loratadine (loratadine 10 mg Tab) 1 Tablets By Mouth Every day as needed for Itching Unchanged magnesium oxide (magnesium oxide 400 mg Tab) 1 Tablets By Mouth Every day Unchanged metformin (metformin 1000 mg oral tablet, extended release) 1 Tablets By Mouth 2 times a day Unchanged midodrine (midodrine 5 mg Tab) 1 Tablets By Mouth 3 times a day Unchanged omeprazole (omeprazole 20 mg Cap-DR) 1 Capsules By Mouth Every day Unchanged pravastatin (pravastatin 40 mg Tab) 1 Tablets By Mouth Once a day (at bedtime) Allergies Dilaudid (Anaphylactic reaction, Unknown) morphine (Anaphylactic reaction, Unknown) penicillin (Anaphylactic reaction, Unknown) Problems Ongoing - Any problem that you are currently receiving treatment for. A-fib CAD in [place] artery Chronic anemia Chronic GERD Dementia Diabetes Diastolic heart failure Hyperlipidemia Hypertension Obesity Peripheral neuropathy Seizure Type 2 diabetes mellitus Normal [facility] Outside Recordson 05-06-2023 Outside Records [id number] Normal [facility] BASIC METABOLIC PANELon 07-0 Anion gap [Moles/Vol] 12 mmol/L 10 - 2 0 mmol/L [facility] Comment on above: Performed By: #### B MP #### [address] [id number] Calcium [Mass/Vol] 9.0 mg/dL 8.6 - 10. 3 mg/dL [facility] Comment on above: Performed By: #### B MP #### [address] [id number] Chloride [Moles/Vol] 104 mmol/L 98 - 10 7 mmol/L [facility] Comment on above: Performed By: #### B MP #### [address] [id number] Creatinine [Mass/Vol] 1.00 mg/dL 0.50 - 1.30 mg/dL [facility] Comment on above: Performed By: #### B MP #### [address] [id number] GFR/1.73 sq M.predicted among non-blacks MDRD (S/P/Bld) [Vol rate/Area] 81 mL/min/{1.73_m2} Normal >90 [facility] Comment on above: Result Comment: CALC ULATIONS OF ESTIMATED GFR ARE PERFORMED USING THE 2020 CKD-EPI STUDY REFIT EQUATION WITHOUT THE RACE VARIABLE FOR THE IDMS-TRACEABLE CREATININE METHODS. https://jasn.asnjournals.org/content/early//ASN.47788 86978 Performed By: #### B MP #### [address] [id number] Glucose [Mass/Vol] 164 mg/dL High 74 - 99 mg/dL [facility] Comment on above: Performed By: #### B MP #### [address] [id number] HCO3 (Bld) [Moles/Vol] 28 mmol/L Normal 21 - 32 [facility] Comment on above: Performed By: #### B MP #### [address] [id number] Potassium [Moles/Vol] 4.2 mmol/L 3.5 - 5.3 mmol/L [facility] Comment on above: Performed By: #### B MP #### [address] [id number] Sodium [Moles/Vol] 140 mmol/L 136 - 145 mmol/L [facility] Comment on above: Performed By: #### B MP #### [address] [id number] Urea nitrogen [Mass/Vol] 43 mg/dL High 6 - 23 mg/dL [facility] Comment on above: Performed By: #### B MP #### [address] [id number] Basic metabolic 2000 panelon 04-06-2023 CO2 [Moles/Vol] 28 mmol/L 21 - 32 mmol/L [facility] GFR MALE 81 - PINF [facility] Comment on above: CALCULATIONS OF CEZAR MATED GFR ARE PERFORMED USING THE 2020 CKD-EPI STUDY REFIT EQUATION WITHOUT THE RACE VARIABLE FOR THE IDMS-TRACEABLE CREATININE METHODS. https://jasn.asnjournals.org/content/early//ASN.50902 16651 CBCon 04-06-2023 Erythrocyte distribution width (RBC) [Ratio] 13.2 % Normal 11.5 - 14.5 [facility] Comment on above: Performed By: #### C BC #### [address] [id number] Hematocrit (Bld) [Volume fraction] 36.4 % Low 41.0 - 52.0 [facility] Comment on above: Performed By: #### C BC #### [address] [id number] Hemoglobin (Bld) [Mass/Vol] 11.5 g/dL Low 13.5 - 17.5 [facility] Comment on above: Performed By: #### C BC #### [address] [id number] MCHC (RBC) [Mass/Vol] 31.6 g/dL Low 32.0 - 36.0 [facility] Comment on above: Performed By: #### C BC #### [address] [id number] MCV (RBC) [Entitic vol] 90 fL Normal 80 - 100 [facility] Comment on above: Performed By: #### C BC #### [address] [id number] Platelets (Bld) [#/Vol] 258 10*3/uL Normal 150 - 450 [facility] Comment on above: Performed By: #### C BC #### [address] [id number] RBC 4.04 x10E12/L Low 4.50 - 5.90 [facility] Comment on above: Performed By: #### C BC #### [address] [id number] WBC (Bld) [#/Vol] 7.0 10*3/uL Normal 4.4 - 11.3 [facility] Comment on above: Performed By: #### C BC #### [address] [id number] CBC panel Auto (Bld)on 04-06 Erythrocyte distribution width (RBC) [Ratio] 13.2 % 11.5 - 14.5 % [facility] Hematocrit (Bld) [Volume fraction] 36.4 % Low 41.0 - 52.0 % [facility] Hemoglobin (Bld) [Mass/Vol] 11.5 g/dL Low 13.5 - 17.5 g/dL [facility] MCHC (RBC) [Mass/Vol] 31.6 g/dL Low 32.0 - 36.0 g/dL [facility] MCV (RBC) [Entitic vol] 90 fL 80 - 100 fL [facility] Platelets (Bld) [#/Vol] 258 10*3/uL [facility] RBC (Bld) [#/Vol] 4.04 10*6/uL Low [facility] WBC (Bld) [#/Vol] 7.0 10*3/uL [facility] COAGULATION SCREENon 023 aPTT Coag (Bld) [Time] 33 s Normal 27 - 38 [facility] Comment on above: Result Comment: Note new reference range as of 03/24/2023 at 10:00am. Performed By: #### C OAGS #### [address] [id number] PT Coag (PPP) [Time] 11.8 s Normal 9.8 - 12.8 [facility] Comment on above: Result Comment: Note new reference range as of 03/24/2023 at 10:00am. Performed By: #### C OAGS #### [address] [id number] PT, INR 1.0 Normal 0.9 - 1.1 [facility] Comment on above: Performed By: #### C OAGS #### [address] [id number] Discharge [id number] Discharge Profile2 Discharge Orders: Code Status: Code Status at Discharge: Full Code DNR Order Additional Instructions (peds only): Appointments: Follow-Up Appointment 01: Physician/Dept/Service [facility] Reason for ReferralIncision Check Scheduled Date/[id number] 09:30 [facility], [address], [address] Phone [phone] Follow-Up Appointment 02: Physician/Dept/Service [facility] Central Registration Reason for ReferralDevice check Scheduled Date/[id number] 07:30 [facility] Phone [phone] Follow-Up Appointment 03: Physician/Dept/Service Dr Mack Reason for ReferralFollow-up Scheduled Date/[id number] 08:30 [facility], [address] Phone [phone] Electronic Signatures: Mahesh Araiza (COOR) (Signed 06-Apr-2023 09:57) Authored: Discharge Orders, Appointments, Gold Form - Foundry Melt Supervisor Summary Last Updated: 06-Apr-2023 09:57 by Mahesh Araiza (COOR) Normal [facility] Electrocardiogram 12 Leadon 04-06-2023 Electrocardiogram 12 Lead Ventricular Rate 58 Atrial Rate 58 P-R Interval 150 QRS Duration 118 Q-T Interval 444 QTC Calculation(Bazett) 435 P [place] 76 R [place] -43 T [place] 10 QRS Count 10 Q Onset 228 P Onset 153 P Offset 184 T Offset 450 QTC Fredericia 438 Diagnosis Class Abnormal Diagnosis Sinus bradycardia Left axis deviation Nonspecific intraventricular conduction delay Abnormal ECG No previous ECGs available Confirmed by Amol Reno ([id number]) on 04/06/2023 5:30:31 PM Normal [facility] Electrocardiogram 12 LeadOrd ered By: Amol Reno on 04-06-2023 Atrial Rate 58 BPM [facility] Work Phone: [phone] P [place] 76 degrees [facility] Work Phone: [phone] P Offset 184 ms [facility] Work Phone: [phone] P Onset 153 ms [facility] Work Phone: [phone] MN Interval 150 ms [facility] Work Phone: [phone] Q Onset 228 ms [facility] Work Phone: QRS Count 10 beats [facility] Work Phone: QRS Duration 118 ms [facility] Work Phone: QT Interval 444 ms [facility] Work Phone: QTC Calculation(Bazett) 435 ms [facility] Work Phone: QTC Fredericia 438 ms [facility] Work Phone: R [place] -43 degrees [facility] Work Phone: T [place] 10 degrees [facility] Work Phone: [phone] T Offset 450 ms [facility] Work Phone: [phone] Ventricular Rate 58 BPM [facility] Work Phone: [facility] Work Phone: Electrocardiogram 12 Leadon 04-06-2023 Sinus bradycardia Left axis deviation Nonspecific intraventricular conduction delay Abnormal ECG No previous ECGs available Confirmed by Amol eRno ([id number]) on 04/06/2023 5:30:31 PM Amol De La Cruz M D - 04/06/2023 Sinus bradycardia Left axis deviation Nonspecific intraventricular conduction delay Abnormal ECG No previous ECGs available Confirmed by Amol Reno ([id number]) on 04/06/2023 5:30:31 PM [facility] Work Phone: No Panel Informationon 04-06 [facility] Interpretation and review of laboratory results Abnormal [facility] Order Reconciliationon 04-06 Order Reconciliation Page 1 Discharge Reconciliation Document Reconciliation Type: Discharge requested on behalf of Esther Adams (Advanced Practice Nurse) done by Esther Adams (AUTHORIZATION MANAGER-SOCIAL SERVICES COORDINATOR) Discharge - Reconciliation: 06-Apr-2023 14:32 by: Esther Adams (AUTHORIZATION MANAGER-SOCIAL SERVICES COORDINATOR) Home Medications EnteredHOME MEDICATIONS AT DISCHARGE DateReconciliation [...] hour(s) 3 (more content not included)... Normal [facility] PT and aPTT panel Coag (PPP) on 04-06-2023 aPTT Coag (PPP) [Time] 33 s [facility] Comment on above: Note new reference josé miguel jackson as of 03/24/2023 at 10:00am. INR Coag (PPP) [Relative time] 1.0 {INR} 0.9 - 1.1 [facility] PT Coag (PPP) [Time] 11.8 s [facility] Comment on above: Note new reference josé miguel jackson as of 03/24/2023 at 10:00am. Patient Profile - Preop v3on 04-06-2023 Patient Profile - Preop v3 Patient Profile - Preop: Initial Info: Patient DemographicsName: OTILIO SUAREZ Date: 1955 Address: [address] [place] [address] Primary Phone [phone] How to be AddressedJerry Spoken Language PreferredEnglish Source of Informationpatient Stated Reason for Admissionloop implant Primary Contact Name and NumberShawn Limitations on Visitors/Phone Callsnone Medications [facility] to [facility]: Weight in kg96 kilogram(s) Weight in txq283.6 pound(s) Weight Methodactual (measured) Scale Typestanding Height [...] Updated: 06-Apr-2023 09:58 by Paula Beal (LISA) Normal [facility] Heart and Vascular Office/Cl inic Noteon 03-29-2023 Heart and Vascular Office/Clinic Note Chief Complaint 1 month f/u History of Present Illness Otilio Suarez is a 67-year-old male who presents today for a follow-up evaluation of autonomic insufficiency, atrial fibrillation, bradycardia, and syncope. He is accompanied by an adult female. Otilio Suarez explains that he has been doing well. He has been checking his blood pressure at home. The adult female explains that when they saw Bushra Jimenez CNP, she increased his midodrine to 3 times a day to help maintain his blood pressure at normal levels. His last syncopal episode was last month, 02/2023. He saw Dr. Mack on 03/18/2022, and he is scheduled for a loop recorder on 04/06/2023. He is experiencing mild chest pain which he thinks is due to therapy. He denies lightheadedness or dizziness within the last month. His last episode of syncope was on 02/16/2023. He has had 9 previous EMS and hospitalizations in a span of 2 months. Otilio Suarez denies having Parkinson's disease. The adult female explains that the patient underwent multiple MRI procedures in the fall of 2020, which revealed evidence of a previous stroke. Review of Systems Constitutional: no fever, no chills, no weakness, no fatigue Respiratory: no shortness of breath, no cough, no orthopnea, no wheezing Cardiovascular: Positive for chest pain, no palpitations, no edema Neuro: no dizziness, no lightheadedness, no syncope Additional ROS info: Except as noted in the above Review of Systems and in the History of Present Illness all other systems have been reviewed and are negative or noncontributory. Physical Exam Vitals & Measurements HR: 71(Peripheral) RR: 14 BP: 118/68 SpO2: 96% HT: 73 in HT: 185 cm WT: 94 kg WT: 206.8 lb BMI: 27.47 General: alert, no acute distress Neck: Trachea midline, no JVD, no bruit Cardiovascular: regular rate and rhythm, no murmur, normal peripheral perfusion Respiratory: Lungs CTA, respirations non labored Extremities: no edema, no deformity, no trauma Neurological: oriented x 4, LOC appropriate for age, sensation equal & normal bilaterally, speech normal Skin: warm, dry intact Assessment/Plan Otilio Suarez is a 67-year-old male with autonomic insufficiency, atrial fibrillation, bradycardia, and syncope. 1. Syncope (R55: Syncope and collapse) He is doing well right now. He is seeing Dr. Mack. 2. Bradycardia (R00.1: Bradycardia, unspecified) See above. 3. Hypotension, postural (I95.1: Orthostatic hypotension) See above. Follow up in 3 months. Portions of this record may have been created with voice recognition artificial intelligence software, specifically [employer], [employer] and or [employer]. Substitutions may have occurred due to the inherent limitations of voice recognition and artificial intelligence software. ATTESTATION: Documentation services were performed after patient or guardian consented to allow [employer] to record this visit. COTY internal communications specialist and provider reviewed before signing. COTY: Rin Enriquez. Entered into Muse by Afsaneh Puente. Follow-up No qualifying data available Problem List/Past Medical History Ongoing A-fib CAD in [place] artery Chronic anemia Chronic GERD Dementia Diabetes Diastolic heart failure Hyperlipidemia Hypertension Obesity Peripheral neuropathy Seizure Type 2 diabetes mellitus Historical No qualifying data Procedure/Surgical History None of the following diagnostic imaging studies ordered: chest X-ray, CT, Ultrasound, MRI, PET, or nuclear medicine scans (ML). Medications acetaminophen 325 mg Tab, 650 mg= 2 tab(s), Oral, q6hr, PRN aspirin 81 mg Oral EC Tab, 81 mg= 1 tab(s), Oral, Daily cholecalciferol 1000 intl units (25 mcg) oral tablet, 25 mcg= 1 tab(s), Oral, Daily furosemide 20 mg Tab, 20 mg= 1 tab(s), Oral, Daily, PRN levETIRAcetam 750 mg oral tablet, dispersible, 750 mg= 1 tab(s), Oral, BID loratadine 10 mg Tab, 10 mg= 1 tab(s), Oral, Daily, PRN magnesium oxide 400 mg Tab, 400 mg= 1 tab(s), Oral, Daily metformin 1000 mg oral tablet, extended release, 1000 mg= 1 tab(s), Oral, BID midodrine 5 mg Tab, 5 mg= 1 tab(s), Oral, TID omeprazole 20 mg Cap-DR, 20 mg= 1 cap(s), Oral, Daily pravastatin 40 mg Tab, 40 mg= 1 tab(s), Oral, Once a day (at bedtime) Trulicity Pen 0.75 mg/0.5 mL subcutaneous solution, 0.75 mg, SubCutaneous, Thursday Allergies Dilaudid (Anaphylactic reaction, Unknown) morphine (Anaphylactic reaction, Unknown) penicillin (Anaphylactic reaction, Unknown) Social History Alcohol - Denies Alcohol Use, 01/17/2023 Substance Abuse Tobacco - Medium Risk, 01/17/2023 Former smoker, quit more than 30 days ago Tobacco Use:. Never Smokeless Tobacco Use:. Cigarettes, 03/26/2023 10 or more cigarettes (1/2 pack or more)/day in last 30 days Tobacco Use:., 12/21/2022 [facility] Comment on above: Result Comment: Elec tronically Signed By: Zia LEMONS, Jaja Dash\.br\Date and Time Signed: 03/29/23 14:48 EDT\.br\Electronically Co-Signed By: Afsaneh Puente\.br\Date and Time Co-Signed: 03/26/23 15:29 EDT Physician Orderon 03-27-2023 Physician Order [id number]#1. 00CD:127 [facility] Consent for Treatmenton 03-06 Consent for Treatment [id number]#1.00 CD:127 [facility] Penitentiary Recordson 03-26 Penitentiary Records [id number]#1.0 0CD:127 Normal [facility] Outside Cardiovascularon Outside Cardiovascular [id number]#1. 00CD:127 Normal [facility] Outside Cardiovascularon Outside Cardiovascular [id number]#1. 00CD:127 Normal [facility] Office Visit (Cardiology)on 03-24-2023 Follow-up visit Diagnoses/Problems [...] for:24Mar2023; Patient Instructions I, Vida Lopez LPN, am scribing for and in the [...] during thi (more content not included)... Normal [facility] Tobacco Screening.on 023 Adult depression screening assessment No [facility] Ordr.in DO Work Phone: Fall risk assessment a) No falls within the last year [facility] Ordr.in DO Work Phone: Tobacco use status [facility]PH[facility] b) No [facility] 305 DO Work Phone: Outside Recordson 03-03-2023 Outside Records [id number] 0OTGTIFF [facility] Progress Note-Nurseon 2022 Progress Note-Nurse [id number]#1. 00CD:127 [facility] Consent for Treatmenton 02-03 Consent for Treatment [id number]#1.0 0CD:127 [facility] Heart and Vascular Office/Cl inic Noteon 02-24-2023 Heart and Vascular Office/Clinic Note Chief Complaint f/u inpatient History of Present Illness Otilio Suarez is a 67-year-old male patient with past medical history positive for paroxysmal atrial fibrillation previously on Eliquis however taken off due to frequent falls, hypertension, hyperlipidemia, chronic diastolic heart failure, diabetes. He has CAD listed in his chart, fairly recent dobutamine stress echo negative for ischemia. He has normal LV function. He has been hospitalized multiple times at [facility] for loss of consciousness/syncope. He is following with neuro and is currently on Keppra. All neuroimaging has been negative. He has been bradycardic on arrival to hospital and with this, has been taken off beta-celsa and calcium channel celsa (carvedilol changed to diltiazem, then diltiazem DCd). He had an outside Holter monitor performed at [facility] which showed sinus, sinus bradycardia, and brief episodes of pSVT, and 6 beat NSVT. His most recent hospitalization, he has had orthostatic hypotension and was started on midodrine. Discharged most recently on 02/14/23. He is here for posthospitalization follow-up. Unfortunately, he has had 2 falls/syncopal episodes since that discharge. He was seen on 02-17-2023 at [facility] and work-up was negative so he was sent back to his extended care facility. Daughter states he passed out yesterday. Seems to be occurring midday to dinnertime. He has been wearing compression stockings and is getting an appetite stimulant and boost as he has poor p.o. intake. Review of Systems Constitutional: no fever, no chills, + weakness, + fatigue Respiratory: no shortness of breath, no cough, no orthopnea, no wheezing Cardiovascular: no chest pain, + palpitations, no edema Neuro:no dizziness no light headed + syncope Additional ROS info: Except as noted in the above Review of Systems and in the History of Present Illness all other systems have been reviewed and are negative or noncontributory. Physical Exam Vitals & Measurements HR: 63(Peripheral) BP: 112/60 SpO2: 96% HT: 73 in HT: 185 cm WT: 94.3 kg WT: 207.46 lb BMI: 27.55 General: Elderly male sitting upright in wheelchair, drowsy but wakes easily to verbal stimuli, no acute distress Neck: Supple, noJVD nocarotid bruit Cardiovascular: Tachycardic rate and regular rhythm, no murmur normal peripheral perfusion Respiratory: Lungs CTA, respirations non labored Extremities:no edema Neurological: oriented x 1, LOC appropriate for age, sensation equal & normal bilaterally, speech normal Skin: Warm, dry, intact- no rash or concerning lesions Cardiac Diagnostics (12/22/2022 10:05 EDT Echo Transthoracic Complete) Interpretation Summary moderate left ventricular hypertrophy. Ejection Fraction = 60-65%. Diastolic dysfunction, Grade II (pseudonormalization pattern). The left atrium is mild to moderately dilated. There is trace tricuspid regurgitation. Right ventricular systolic pressure is 30 mmHg. Patient appears to be in normal sinus rhythm. [1] (01/19/2023 11:46 EDT EC Stress Echo Complete w/ Contrast) Interpretation Summary Normal, adequate, dobutamine echocardiogram. Negative for ischemia by EKG and echocardiograph criteria. No anginal symptoms noted. No arrhythmias noted. Excellent chronotropic competence for age. Decrease sensitivity due to poor echo windows requiring Definity agent. This is a low risk study. Ejection Fraction = 60-65%. [2] Assessment/Plan 1. Bradycardia (R00.1: Bradycardia, unspecified) His beta celsa and calcium channel blockers recently discontinued due to bradycardia and hypotension. He is a DNRCC-arrest, but patient's daughter would want a pacemaker if medically indicated. Will refer to Dr Mack for further evaluation. Ordered: [facility] External Ambulatory Referral 2. Orthostatic hypotension (I95.1: Orthostatic hypotension) Up-titrate midodrine from 5 mg BID to 5 mg TID Continue adequate oral hydration/PO intake Continue compression stockings, knee high. Place in am, remove hs. Ordered: [facility] External Ambulatory Referral 3. NSVT (nonsustained ventricular tachycardia) (I47.29: Other ventricular tachycardia) Normal LV, recent stress echo negative. Unable to use beta celsa/CCB s/t #2 EP referral Ordered: [facility] External Ambulatory Referral 4. PSVT (paroxysmal supraventricular tachycardia) (I47.1: Supraventricular tachycardia) Ordered: [facility] External Ambulatory Referral 5. Syncope (R55: Syncope and collapse) Neuro had wanted a tilt study. He is already pushing fluids, compression stockings, and up-titrating midodrine. Will refer to EP for this decision. Ordered: [facility] External Ambulatory Referral Orders: midodrine, 5 mg = 1 tab(s), Oral, TID, # 60 tab(s), Refills(s) 0, other reason (Rx) Follow-up With When Contact Information Zia LEMONS, Jaja Dash [address] [place] [phone]- Additional Instructions: Keep March apt- february push back if following up wit (more content not included)... Normal [facility] Comment on above: Result Comment: Elec tronically Signed By: TONY GILMORE, Bushra Guo\.br\Date and Time Signed: 02/24/23 13:45 EDT Progress Note-Physicianon Progress Note-Physician [id number]#1. 00CD:127 Normal [facility] Auto Diffon 02-17-2023 Basophils/100 WBC (Bld) 0.7 % Normal 0.0-2.0 [facility] Comment on above: Order Comment: Order Added by Discern Expert. Performed By: #### 2 668224, 37046792, 18654600, 5607983, 8454828, 88643867, 7699912, 9532004 ####[facility] [address] [place] [address] Basophils/Leukocytes Auto (Bld) [Pure # fraction] 0.1 E9/L Normal 0.0-0.2 [facility] Comment on above: Order Comment: Order Added by Discern Expert. Performed By: #### 2 728974, 01807871, 76791655, 2681148, 2873953, 46169129, 9910148, 6288510 ####[facility] [address] [place] [address] Eosinophils/100 WBC (Bld) 7.6 % Normal 0.0-8.0 [facility] Comment on above: Order Comment: Order Added by Discern Expert. Performed By: #### 2 276447, 80761059, 65053247, 4792672, 6499049, 67754545, 9745382, 8639087 ####[facility] [address] [place] [address] Eosinophils/Leukocytes Auto (Bld) [Pure # fraction] 0.5 E9/L Normal 0.0-0.5 [facility] Comment on above: Order Comment: Order Added by Discern Expert. Performed By: #### 2 991711, 10435822, 43247465, 9717136, 4640466, 94460912, 3929171, 3222069 ####[facility] [address] [place] [address] Lymphocytes/100 WBC (Bld) 41.2 % Normal 14.0-50.0 [facility] Comment on above: Order Comment: Order Added by Discern Expert. Performed By: #### 2 635441, 71128921, 53758790, 1685900, 8067832, 52696590, 0212687, 7349599 ####[address] [place] [address] Lymphocytes/Leukocytes Auto (Bld) [Pure # fraction] 2.8 E9/L Normal 1.0-4.0 [facility] Comment on above: Order Comment: Order Added by Discern Expert. Performed By: #### 2 554120, 70196596, 40106459, 9477868, 9098613, 43564013, 1809334, 8549600 ####[address] [address] Monocytes/100 WBC (Bld) 6.9 % Normal 4.0-14.0 [facility] Comment on above: Order Comment: Order Added by Discern Expert. Performed By: #### 2 888438, 29263033, 83498534, 1800856, 1816448, 45358994, 1185140, 1524486 ####[address] [address] Monocytes/Leukocytes Auto (Bld) [Pure # fraction] 0.5 E9/L Normal 0.2-1.0 [facility] Comment on above: Order Comment: Order Added by Discern Expert. Performed By: #### 2 770660, 86801542, 30191781, 5404342, 4740400, 72286713, 0099073, 2072057 ####[address] [address] Neutrophils/100 WBC (Bld) 43.6 % Normal 36.0-75.0 [facility] Comment on above: Order Comment: Order Added by Pearl Expert. Performed By: #### 2 211431, 14579054, 36959323, 5131394, 7887773, 37941758, 7914231, 0965187 ####[facility] [address] [place] [address] Neutrophils/Leukocytes Auto (Bld) [Pure # fraction] 2.9 E9/L Normal 2.0-7.5 [facility] Comment on above: Order Comment: Order Added by Discern Expert. Performed By: #### 2 612945, 92072225, 12140452, 1796209, 9747575, 15225804, 9337746, 2780935 ####[facility] [address] [place] [address] BMPon 02-17-2023 Creatinine [Mass/Vol] 1.1 mg/dL Normal 0.5-1.3 [facility] Comment on above: Performed By: #### 2 455744, 95394383, 77096313, 9392247, 8648291, 80259079, 5889290, 6971917 ####[facility] [address] [place] [address] Urea nitrogen [Mass/Vol] 26 mg/dL High 5-21 [facility] Comment on above: Performed By: #### 2 171584, 16381751, 27790096, 1263162, 1939209, 82974930, 7806199, 9952385 ####[facility] [address] [place] [address] Urea nitrogen/Creatinine [Mass ratio] 24 No Units High 10-20 [facility] Comment on above: Performed By: #### 2 932752, 67586279, 07281863, 6818191, 5935633, 45929540, 9955891, 5269059 ####[facility] [address] [place] [address] Anion gap [Moles/Vol] 12 mmol/L Normal 6-16 [facility] Comment on above: Performed By: #### 2 377082, 85623842, 96298145, 7859292, 1741814, 19653077, 0463885, 0956260 ####[facility] [address] [place] [address] Calcium [Mass/Vol] 9.2 mg/dL Normal 8.9-11.1 [facility] Comment on above: Performed By: #### 2 002855, 24789363, 08154804, 8297637, 3861147, 26158583, 2943114, 2121329 ####[facility] [address] [place] [address] Chloride [Moles/Vol] 103 mmol/L Normal 101-111 [facility] Comment on above: Performed By: #### 2 881860, 21986511, 40464311, 8497219, 2824385, 67972665, 5189469, 1223335 ####[facility] [address] [place] [address] CO2 [Moles/Vol] 27 mmol/L Normal 21-[address] [facility] Comment on above: Performed By: #### 2 733095, 39007231, 61237211, 3947945, 1786584, 99972778, 4245468, 7585636 ####[facility] [address] [place] [address] Glucose [Mass/Vol] 148 mg/dL Normal 55-199 [facility] Comment on above: Result Comment: If t his glucose result represents a fasting glucose, interpretation should refer to the following reference range: 55-99 mg/dL Performed By: #### 2 700143, 32352805, 77271496, 1793087, 7168908, 20180268, 4050961, 7865264 ####[facility] [address] [place] [address] Potassium [Moles/Vol] 4.3 mmol/L Normal 3.5-5.3 [facility] Comment on above: Performed By: #### 2 457187, 69781815, 33632622, 3089592, 5472809, 29477739, 4126085, 4021498 ####[facility] [address] [place] [address] Sodium [Moles/Vol] 138 mmol/L Normal 135-145 [facility] Comment on above: Performed By: #### 2 089987, 85670462, 84572765, 1198422, 2539134, 95643791, 6465149, 2731376 ####[facility] [address] [place] [address] Blood Gas Art, with Lytes, G kj, [place] 02-17-2023 a/A Ratio Art 86.90 % Normal >=0.80 [facility] Comment on above: Performed By: #### 1 9550087, 9621218, 9094105, 60931390, 7509839, 0959972, 16884626, 8771703 #### [facility] [address] [place] [address] AaDO2 Art 13.6 mmHg Normal 5.0-15.0 [facility] Comment on above: Performed By: #### 1 5067639, 4117761, 9550856, 79666680, 3493796, 0249529, 90926335, 4908691 #### [facility] [address] [place] [address] Allens Test Positive Normal [facility] Comment on above: Performed By: #### 1 3901946, 4729599, 3997417, 90751243, 5716488, 4731289, 69710464, 3798377 #### [facility] [address] [place] [address] Base Excess Arterial 0.9 mmol/L Low >=2.8 [facility] Comment on above: Performed By: #### 1 7019175, 8864875, 1334057, 57256389, 8556893, 3151101, 26898700, 8460255 #### [facility] [address] [place] [address] cCa2+ Art 4.86 mg/dL Normal 4.40-5.30 [facility] Comment on above: Performed By: #### 1 1338014, 8027995, 0698718, 77414400, 0920298, 7239634, 65382149, 8025307 #### [facility] [address] [place] [address] cCl- Art 105.0 mmol/L Normal 101.0-111.0 [facility] Comment on above: Performed By: #### 1 0222469, 8144055, 5252074, 08967846, 1040138, 6048563, 96102941, 1229051 #### [facility] [address] [place] [address] cGlu Art 118 mg/dL High 55-99 [facility] Comment on above: Performed By: #### 1 3516564, 9699861, 9584838, 54017764, 6732877, 1721568, 09398934, 0381859 #### [facility] [address] [place] [address] cK+ Art 3.8 mmol/L Normal 3.5-5.3 [facility] Comment on above: Performed By: #### 1 0811235, 0908321, 2381310, 12628699, 7781600, 9234283, 27168983, 6090038 #### [facility] [address] [place] [address] cLac Art .6 mmol/L Normal .5-2.2 [facility] Comment on above: Performed By: #### 1 3870411, 3516884, 4756793, 61229383, 8924690, 3859071, 91825265, 5438059 #### [facility] [address] [place] [address] 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 operator+ Art 140.0 mmol/L Normal 135.0-145.0 [facility] Comment on above: Performed By: #### 1 1884851, 6483335, 8508403, 20777360, 4862797, 6599743, 08056842, 6091168 #### [facility] [address] [place] [address] Drawn by MALONE Invalid Interpretation Code [facility] Comment on above: Performed By: #### 1 1690732, 0521804, 1001388, 35460062, 0148716, 9462273, 28446874, 6061001 #### [facility] [address] [place] [address] FCOHb Art 0.8 % Low 1.5-4.9 [facility] Comment on above: Result Comment: Refe rence range Nonsmoker <1.5% Smoker <5.0% Heavy Smoker <9.0% Performed By: #### 1 0988710, 4075288, 9830713, 05786052, 4945659, 4228599, 96300155, 2902531 #### [facility] [address] [place] [address] FIO2 BG 21 Invalid Interpretation Code [facility] Comment on above: Performed By: #### 1 3517570, 2288173, 5535955, 52838462, 5017566, 3590722, 91774566, 7189780 #### [facility] [address] [place] [address] FMetHb Art 0.4 % Normal 0.0-1.9 [facility] Comment on above: Performed By: #### 1 9233043, 8279895, 5153850, 90903974, 1594041, 7793107, 72566058, 9083867 #### [facility] [address] [place] [address] FO2Hb Art 97.0 % Normal 93.0-100.0 [facility] Comment on above: Performed By: #### 1 8336833, 7988650, 0038856, 62472427, 6867319, 7373899, 36160520, 9858716 #### [facility] [address] [place] [address] HCO3 (Bld) [Moles/Vol] 25.2 mmol/L Normal 22.0-26.0 [facility] Comment on above: Performed By: #### 1 0897700, 5134478, 4598710, 65443745, 8918916, 1488444, 82958746, 4661454 #### [facility] [address] [place] [address] Hemoglobin (Bld) [Mass/Vol] 11.1 g/dL Low 12.0-17.0 [facility] Comment on above: Performed By: #### 1 3413688, 3432052, 1627664, 36089297, 2820988, 4015310, 60416077, 0354531 #### [facility] [address] [place] [address] Oxygen saturation in Blood 98.1 % Normal 95.0-100.0 [facility] Comment on above: Performed By: #### 1 6187853, 2805512, 8626176, 19813592, 4203141, 5331409, 05758460, 0384205 #### [facility] [address] [place] [address] P CO2 Arterial 37.1 mmHg Normal 35.0-45.0 [facility] Comment on above: Performed By: #### 1 0699913, 5138681, 5636223, 11689592, 7236778, 1911305, 01902252, 6213838 #### [facility] [address] [place] [address] P O2 Arterial 90.0 mmHg Normal 80.0-100.0 [facility] Comment on above: Performed By: #### 1 7713552, 6086066, 9856712, 51667082, 4771836, 3477424, 78122149, 9277444 #### [facility] [address] [place] [address] pH Arterial 7.437 Normal 7.350-7.450 [facility] Comment on above: Performed By: #### 1 2604387, 8414295, 5218339, 46087697, 3999430, 7989401, 10673572, 2894025 #### [facility] [address] [place] [address] Sample Site R Radial Normal [facility] Comment on above: Performed By: #### 1 8031297, 1473050, 5871729, 54903469, 4234971, 9379611, 12464178, 1276772 #### [facility] [address] [place] [address] Sample Type Arterial Draw Normal [facility] Comment on above: Performed By: #### 1 6622040, 0996505, 5923343, 11955279, 9199231, 6601574, 20436533, 9265659 #### [facility] [address] [place] [address] CBC w/ Auto Diffon 3 Erythrocyte distribution width (RBC) [Ratio] 14.5 % High 10.9-14.2 [facility] Comment on above: Performed By: #### 2 [id number], [id number], [id number], 5191281, 4520245, 41902758, 7990672, 5121087 ####[facility] [address] [place] [id number] Hematocrit (Bld) [Volume fraction] 36.9 % Low 37.7-49.0 [facility] Comment on above: Performed By: #### 2 493075, [id number], 07905633, 6720504, 3803651, 87179298, 8952664, 6608710 ####[facility] [address] [place] [address] Hemoglobin (Bld) [Mass/Vol] 11.6 g/dL Low 13.5-17.5 [facility] Comment on above: Performed By: #### 2 441887, 17031498, 21766874, 7646671, 9338220, 05698983, 7033284, 2932301 ####[facility] [address] [place] [address] MCH (RBC) [Entitic mass] 27.5 pg Normal 27.0-34.0 [facility] Comment on above: Performed By: #### 2 005406, [id number], 90899869, 2723098, 5053912, 12786902, 9383735, 1300170 ####[facility] [address] [place] [address] MCHC (RBC) [Mass/Vol] 31.3 g/dL Low 31.4-36.0 [facility] Comment on above: Performed By: #### 2 848302, 83397787, 20538953, 6326732, 2655981, 24445845, 6212422, 4858462 ####[facility] [address] [place] [address] MCV (RBC) [Entitic vol] 87.8 fL Normal 80.0-100.0 [facility] Comment on above: Performed By: #### 2 066852, 37700813, 85312267, 4000360, 3756335, 25037641, 5939787, 8857416 ####[address] [address] Platelet mean volume (Bld) [Entitic vol] 8.6 fL Normal 6.4-10.8 [facility] Comment on above: Performed By: #### 2 963331, 30976424, 91263647, 0235472, 2864173, 79272005, 4367000, 2945829 ####[address] [address] Platelets (Bld) [#/Vol] 185.0 E9/L Normal 150.0-500.0 [facility] Comment on above: Performed By: #### 2 299455, 21558838, 97905764, 4262149, 3574527, 36725262, 6628248, 7233742 ####[address] [address] RBC (Bld) [#/Vol] 4.2 E12/L Low 4.3-5.9 [facility] Comment on above: Performed By: #### 2 793364, 22080932, 04902641, 2694585, 8185409, 15195588, 3164482, 7806788 ####[facility] [address] [place] [address] WBC corrected for nucl RBC Auto (Bld) [#/Vol] 6.8 E9/L Normal 4.0-11.[address] [facility] Comment on above: Performed By: #### 2 456797, 87625405, 35399918, 2408517, 0953508, 23088675, 8663377, 9104876 ####[facility] [address] [place] [address] CT Head or Brain w/o Contras ton 02-17-2023 CT Head or Brain w/o Contrast Exam Date/Time: 02/17/2023 01:16 EDT Reason for Exam: Altered mental status Report IMPRESSION: NO EVIDENCE OF ACUTE INTRACRANIAL HEMORRHAGE. NO SIGNIFICANT CHANGE WHEN COMPARED TO THE PRIOR EXAM. CLINICAL HISTORY: Altered mental status. Patient found unresponsive. COMPARISON: 02/13/2023. COMMENT: Unenhanced images were obtained. The ventricles appear within normal limits. The basal cisterns are prominent. The sylvian fissures and cortical sulci bilaterally are dilated. There is no mass effect nor midline shift. There are small focal areas of decreased attenuation involving the right thalamus, left basal ganglia, and deep left frontal white matter, consistent with lacunar infarcts. There are more subtle ill-defined areas of mildly decreased attenuation involving cerebral white matter bilaterally, that are nonspecific, but with small vessel ischemic changes suspected. There is no evidence of recent intracranial hemorrhage nor extra-axial hematoma. No mass lesion is evident. No skull fracture is noted. There are calcifications of distal internal carotid arteries. There are bilateral mastoid and bilateral paranasal sinus findings, as noted on the prior study, without interval change. All CT scans at this facility use dose modulation, iterative reconstruction, and/or weight based dosing when appropriate to reduce radiation dose to as low as reasonably achievable. Ordering Provider: Tita Albright FINAL REPORT Dictated: 02/17/2023 8:02 am Harjit Bhardwaj M.D. Signed (Electronic Signature): 02/17/2023 8:02 am Signed by: Harjit Bhardwaj M.D. Transcribed by: TREVIN Technologist: RAHEL Golden [facility] Consent for Treatmenton 02-02 Consent for Treatment [id number]. 00CD:127 Normal [facility] Discharge Instructionson Discharge Instructions [id number]. 00CD:127 Normal [facility] ED Clinical Summaryon 2022 ED Clinical Summary [place] [id number] ED Clinical Summary Person [facility]: [facility] Age[facility] 67 Years : 1955 Sex: Male Language: Ivorian PCP: HERMILO THORNE MD Marital Status: Visit Id: Visit Reason: Altered mental status; UNRESPONSIVE Speciality: Acuity: 1 Enc Type: Emergency Med Service: Emergency Arrival: 02/16/2023 23:54:17 Discharge: 02/17/2023 04:58:39 LOS: 000 05:04 Checkin: 02/16/2023 23:54:17 Checkout: 02/17/2023 04:58:39 Dispo Type: [facility] EVENTS: Event Name Event Status Request Date/Time Start Date/Time Complete Date/Time Arrive Complete 02/16/2023 23:54:17 02/16/2023 23:54:17 02/16/2023 23:54:17 Document Home Meds Request 02/16/2023 23:54:17 Triage Complete 02/16/2023 23:54:17 02/17/2023 00:20:40 02/17/2023 00:20:40 Bed Assign Complete 02/16/2023 23:54:17 02/16/2023 23:54:17 02/16/2023 23:54:17 Dr Exam Complete 02/16/2023 23:54:17 02/16/2023 23:55:51 02/16/2023 23:55:51 RN Exam Complete 02/16/2023 23:54:17 02/17/2023 00:31:20 02/17/2023 00:31:20 Registration Complete 02/16/2023 23:55:51 02/17/2023 00:21:38 02/17/2023 00:21:38 EKG Complete 02/16/2023 23:57:39 02/17/2023 00:01:45 Meds Admin Complete 02/16/2023 23:57:39 02/17/2023 00:53:15 Pending Labs Complete 02/16/2023 23:57:39 02/17/2023 04:20:20 Lab Complete 02/16/2023 23:57:39 02/17/2023 00:49:38 Patient Care Request 02/16/2023 23:57:39 RT Request 02/16/2023 23:57:39 X-Ray Complete 02/16/2023 23:57:39 02/17/2023 00:09:25 02/17/2023 00:34:32 30 Day Return Request 02/17/2023 00:20:40 Reg Complete Request 02/17/2023 00:21:38 Pending Labs Complete 02/17/2023 00:23:55 02/17/2023 00:23:55 02/17/2023 00:49:37 Lab Complete 02/17/2023 00:23:55 02/17/2023 00:23:55 02/17/2023 00:49:37 Pending Labs Complete 02/17/2023 00:28:14 02/17/2023 00:28:14 02/17/2023 00:28:21 Lab Complete 02/17/2023 00:28:14 02/17/2023 00:28:14 02/17/2023 00:28:21 NPO Request 02/17/2023 00:31:21 Wet Read Request 02/17/2023 00:34:32 CT Complete 02/17/2023 00:38:50 02/17/2023 00:40:30 02/17/2023 01:16:40 Pending Labs Complete 02/17/2023 01:49:17 02/17/2023 02:35:28 RT Tx/ABG Request 02/17/2023 01:49:17 Discharge Complete 02/17/2023 03:44:41 02/17/2023 05:02:48 02/17/2023 05:02:48 Transfer Complete 02/17/2023 05:02:48 02/17/2023 05:02:48 02/17/2023 05:02:48 ADDRESS: [address] [place] [id number] PHYS DOC NOTES: MEDICAL INFORMATION: Prescriptions Given: Medications to Continue with No Changes Other Medications acetaminophen (acetaminophen 325 mg Tab) 2 Tablets By Mouth every 6 hours as needed Pain. aspirin (aspirin 81 mg Oral EC Tab) 1 Tablets By Mouth every day. Refills: 0. cholecalciferol (cholecalciferol 1000 intl units (25 mcg) oral tablet) 1 Tablets By Mouth every day. Refills: 0. dulaglutide (Trulicity Pen 0.75 mg/0.5 mL subcutaneous solution) 0.75 Milligram Subcutaneous Thursday. furosemide (furosemide 20 mg Tab) 1 Tablets By Mouth every day as needed Edema. levetiracetam (levETIRAcetam 750 mg oral tablet, dispersible) 1 Tablets By Mouth 2 times a day. loratadine (loratadine 10 mg Tab) 1 Tablets By Mouth every day as needed Itching. magnesium oxide (magnesium oxide 400 mg Tab) 1 Tablets By Mouth every day. Refills: 0. metformin (metformin 1000 mg oral tablet, extended release) 1 Tablets By Mouth 2 times a day. Refills: 0. midodrine (midodrine 5 mg Tab) 1 Tablets By Mouth 2 times a day. Refills: 0. omeprazole (omeprazole 20 mg Cap-DR) 1 Capsules By Mouth every day. pravastatin (pravastatin 40 mg Tab) 1 Tablets By Mouth once a day (at bedtime). PATIENT EDUCATION INFORMATION: Instructions: Syncope, Adult, Hpxo-sb-Omio; Confusion Follow up: With: Address: When: HERMILO TALAMANTESA [address] [place], [place] [id number] [employer] (1Troodon In 3 days 02/20/2023 Comments: Please follow-up with your primary care doctor in the next 2 to 3 days and your operating theatre technician for further evaluation and management. Return to the ED for any new or worsening symptoms. DIAGNOSIS: Change in mental status Normal [facility] ED Note-Physicianon 02-18-20 ED Note-Physician Basic Information Time Seen: Tita Albright DO 02/16/2023 23:55 Chief Complaint Pt. found unresponsive, in bed at [facility]. Pt. responding to painful stimuli. when pt's arm is held up over his face pt. moves his arm to the side to drop. Unknown LKW. History of Present Illness Patient is a 67-year-old male with past medical history of hypertension, hyperlipidemia, dementia, seizure disorder, type 2 diabetes, atrial fibrillation not on anticoagulation presenting to the ED for evaluation of unresponsiveness. History is unobtainable from the patient due to his unresponsiveness. Was found in his bed at [facility]. Patient has had similar presentations in the past with his last presentation last week. Review of Systems Unable to be obtained due to mental status Physical Exam Vitals & Measurements T: 36.4 ?C(Axillary) HR: 59(Monitored) RR: 18 BP: 136/74 SpO2: 99% HT: 182.88 cm WT: 97.4 kg BMI: 29.12 General: Well developed, non toxic appearing, no acute distress HEENT: Head atraumatic, Mucosa moist, hearing grossly normal Neck: No JVD, tracheal deviation Cardiac: Regular rate, rhythm, no murmurs, or gallops, 2+ radial pulses Respiratory: Lungs clear to auscultation B/L, normal respiratory effort Abdomen: Soft non tender, no rebound or guarding, no peritoneal signs Extremities: No edema noted in the LE B/L, no tenderness to palpation Neurologic: Responsive to painful stimuli, patient forcefully holding his eyes closed, when arm is held above his head and he drops it to the side, does localize pain Skin: No rashes or lesions Psych: Appropriate mood and behavior Medical Decision Making MEDICAL DECISION MAKING Number and Complexity of Problems Differential Diagnosis: [] [facility] Data External documents reviewed: [] My EKG interpretation: [] My CT interpretation: [] My X-ray interpretation: [] My Ultrasound interpretation: [] Decision rules/scores evaluated: [] Discussed with: [] Treatment and Disposition ED Course: Patient is a 67-year-old male presenting to the ED for evaluation of unresponsiveness. Patient responsive to painful stimuli on initial examination, localizes pain. Cardiac work-up is obtained, CT of the head is ordered. Patient's laboratory evaluation is unremarkable, troponin is negative, blood gas shows no acute abnormalities. Chest x-ray negative CT head negative. EKG without any acute changes. I did discuss the case with hospitalist, Dr Conklin who evaluated the patient in the ED states that he is already had an extensive work-up and there is no indication for admission at this time as patient is back to his baseline mental status and is answering questions. He states at this time that they would not have any further testing to add onto what was already performed as he was just discharged 2 days ago for the same thing. Repeat troponin is negative. I discussed the case with the patient's daughter as explained the findings and the discussion with the hospitalist. She is comfortable with him to go back to the nursing facility. Patient was able to ambulate around the department without difficulty. shared decision making: [] Code status: [] Assessment/Plan Change in mental status (R41.82: Altered mental status, unspecified) Orders: Sodium Chloride 0.9% intravenous solution, 1,000 mL, Soln-IV, IV, Once, Stop date 02/16/23 23:57:00 EDT, STAT, Start date 02/16/23 23:57:00 EDT, Infuse over 61, minute(s) Automated Diff Basic Metabolic Panel Blood Gas Art, with Lytes, Gluc, Lact CBC w/ Auto Diff CT Head or Brain w/o Contrast ECG 12 Lead Adult ED Cardiac Monitoring eGFR Hepatic Function Panel Magnesium Level Oxygen Saturation Oxygen Therapy PT & PTT Saline Lock Insert Troponin 0 Hr. Troponin 3 Hr. Troponin 6 Hr. Troponin 9 Hr. XR Chest Single View Disposition Plan Discharge Prescription List Prescriptions No active prescription medications Follow-up With When Contact Information HERMILO THORNE In 3 days 02/20/2023 EDT [address] [place] [address]- Business (1) Additional Instructions: Please follow-up with your primary care doctor in the next 2 to 3 days and your operating theatre technician for further evaluation and management. Return to the ED for any new or worsening symptoms. Patient Education Syncope, Adult, Kenb-av-Urth Confusion Problem List/Past Medical History Ongoing A-fib CAD in [place] artery Chronic anemia Chronic GERD Dementia Diabetes Diastolic heart failure Hyperlipidemia Hypertension Obesity Peripheral neuropathy Seizure Type 2 diabetes mellitus Historical No qualifying data Medications Inpatient NS 1000 ml Bolus, 1000 mL, IV, Once Home acetaminophen 325 mg Tab, 650 mg= 2 tab(s), Oral, q6hr, PRN aspirin 81 mg Oral EC Tab, 81 mg= 1 tab(s), Oral, Daily cholecalciferol 1000 intl units (25 mcg) oral tablet, 25 mcg= 1 tab(s), Oral, D (more content not included)... Normal [facility] Comment on above: Result Comment: Elec tronically Signed By: Tita Albright DO\.br\Date and Time Signed: 02/17/23 03:46 EDT ED Patient Education Noteon 02-17-2023 ED Patient Education Note Mental and Behavioral Health Confusion Confusion is the inability to think with your usual speed or clarity. Confusion can be caused by many things. People who are confused often describe their thinking as cloudy or unclear. Confusion can also include feeling disoriented. This means you are unaware of where you are or who you are. You may also not know the date or time. When confused, you may have trouble remembering, paying attention, or making decisions. Some people also act aggressively when they are confused. In some cases, confusion may come on quickly. In other cases, it may develop slowly over time. Confusion may be caused by medical conditions such as: ? Infections, such as a urinary tract infection (UTI). ? Low levels of oxygen, which can develop from conditions such as long-term lung disorders. ? Decrease in brain function due to dementia and other conditions that affect the brain, such as seizures, strokes, brain tumors, or head injuries. ? Mental health conditions, like panic attacks, anxiety, depression, and hallucinations. Confusion may also be caused by physical factors such as: ? Loss of fluid (dehydration) or an imbalance of salts and minerals in the body (electrolytes). ? Lack of certain nutrients like niacin, thiamine, or other B vitamins. ? Fever or hypothermia, which is a sudden drop in body temperature. ? Low or high blood sugar. ? Low or high blood pressure. Other causes include: ? Lack of sleep or changes in routine or surroundings, such as when traveling or staying in a hospital. ? Using too much alcohol, drugs, or medicine. ? Side effects of medicines, or taking medicines that affect other medicines (drug interactions). Follow these instructions at home: Pay attention to your symptoms. Tell your health care provider about any changes or if you develop new symptoms. Follow these instructions to control or treat symptoms. Ask a family member or friend for help if needed. Medicines ? Take sdnr-cmj-grgbmpt and prescription medicines only as told by your health care provider. ? Ask your health care provider about changing or stopping any medicines that may be causing your confusion. ? Avoid pain medicines or sleep medicines until you have fully recovered. ? Use a pillbox or an alarm to help you take the right medicines at the right time. Lifestyle ? Eat a balanced diet that includes fruits and vegetables. ? Get enough sleep. For most adults, this is 7?9 hours each night. ? Do not drink alcohol. ? Do not become isolated. Spend time with other people and make plans for your days. ? Do not drive until your health care provider says that it is safe to do so. ? Do not use any products that contain nicotine or tobacco, such as cigarettes, e-cigarettes, and chewing tobacco. If you need help quitting, ask your health care provider. ? Stop other activities that may increase your chances of getting hurt. These may include some work duties, sports activities, swimming, or bike riding. Ask your health care provider what activities are safe for you. Tips for caregivers ? Find out if the person is confused. Ask the person to state his or her name, age, and the date. If the person is unsure or answers incorrectly, he or she may be confused and need assistance. ? Always introduce yourself, no matter how well the person knows you. Remind the person of his or her location. ? Place a calendar and clock near the person who is confused. Keep a regular schedule. Make sure the person has plenty of light during the day and sleep at night. ? Talk about current events and plans for the day. ? Keep the environment calm, quiet, and peaceful. ? Help the person do the things that he or she is unable to do. These include: ? Taking medicines. ? Keeping medical appointments. ? Helping with household duties, including meal preparation. ? Running errands. ? Get help if you need it. There are several support groups for caregivers. If the person you are helping needs more support, consider day care, extended-care programs, or a residential facility. The person's health care provider may be able to help evaluate these options. General instructions ? Monitor yourself for any conditions you may have. These can include: ? Checking your blood glucose levels if you have diabetes. ? Maintaining a healthy weight. ? Monitoring your blood pressure if you have hypertension. ? Monitoring your body temperature if you have a fever. ? Keep all follow-up visits. This is important. Contact a health care provider if: ? You have new symptoms or your symptoms get worse. Get help right away if you: ? Feel that you are not able to care for yourself. ? Develop severe headaches, repeated vomiting, seizures, blackouts, or slurred speech. ? Have increasing confusion, weakness, numbness, restlessness, or personality changes. ? Develop a loss of balance, h (more content not included)... Normal [facility] ED Patient Summaryon 023 ED Patient Summary [address] [address] Patient Discharge Instructions Person Information Name: OTILIO SUAREZ Age: 67 Years Arrival Date: 02/16/2023 23:54:17 Discharge Diagnosis: Change in mental status Primary Care Physician: HERMILO THORNE MD Provider Information Primary Provider: Tita Albright DO Advanced State Inspector:None The exam and treatment you received in the Emergency Department were for an urgent problem and are not intended as complete care. It is important that you follow up with a doctor, nurse practitioner, or physician?s dental hygiene administrative assistant for ongoing care. If your symptoms become worse or you do not improve as expected and you are unable to reach your usual health care provider, you should return to the Emergency Department. We are available 24 hours a day. SUAREZOTILIO MARROQUIN has been given the following list of patient education materials, prescriptions and follow-up instructions: Follow-up Instructions: With: Address: When: HERMILO THORNE [address] [place] [id number] Business (1) In 3 days 02/20/2023 Comments: Please follow-up with your primary care doctor in the next 2 to 3 days and your operating theatre technician for further evaluation and management. Return to the ED for any new or worsening symptoms. In the event that this physician does not participate in your insurance network, please consult with your insurance company to find a nearby participating provider. Patient Education Materials: Syncope, Adult, Azli-uk-Mugm; Confusion A MESSAGE TO ALL PATIENTS REGARDING OPIOIDS PRESCRIPTION OPIOIDS: WHAT YOU NEED TO KNOW Prescription opioids can be used to help relieve vlmfosva-zi-cdxjxl pain and are often prescribed following a surgery or injury, or for certain health conditions. These medications can be an important part of the treatment but also come with serious risks. It is important to work with your healthcare provider to make sure you are getting the safest, most effective care. WHAT ARE THE RISKS AND SIDE EFFECTS OF OPIOID USE? Prescription opioids carry serious risks of addiction and overdose, especially with prolonged use. An opioid overdose, often marked by slowed breathing, can cause sudden . The use of prescription opioids can have a number of side effects as well, even when taken as directed: ? Tolerance?meaning you might need to take more of the medication for the same pain relief ? Physical dependence?meaning you have symptoms of withdrawal when a medication is stopped ? Increased sensitivity to pain ? Constipation ? Nausea, vomiting, and dry mouth ? Sleepiness and dizziness ? Confusion ? Depression ? Low levels of testosterone that can result in lower sex drive, energy, and strength ? Itching and sweating RISKS ARE GREATER WITH: ? History of drug misuse, substance use disorder, or overdose ? Mental health conditions (such as depression or anxiety) ? Sleep apnea ? Older age (65 years and older) ? Avoid alcohol while taking prescription opioids. Also, unless specifically advised by your health care provider, medications to avoid include: ? Benzodiazepines (such as Xanax or Valium) ? Muscle relaxants (such as Soma or Flexeril) ? Hypnotics (such as Ambien or Lunesta) ? Other prescription opioids KNOW YOUR OPTIONS Talk to your health care provider about ways to manage your pain that don?t involve prescription opioids. Some of these options may actually work better and have fewer risks and side effects. Options may include: ? Pain relievers such as acetaminophen, ibuprofen, and naproxen ? Some medication that are also used for depression or seizures ? Physical therapy and exercise ? Cognitive behavioral therapy, a psychological, goal-directed approach, in which patients learn how to modify physical, behavioral, and emotional triggers of pain and stress. IF YOU ARE PRESCRIBED OPIOIDS FOR PAIN: ? Never take opioids in greater amounts or more often than prescribed. ? Follow up with your primary health care provider. o Work together to create a plan on how to manage your pain. o Talk about ways to help manage your pain that don?t involve prescription opioids. o Talk about any and all concerns and side effects. ? Help prevent misuse and abuse o Never sell or share prescription opioids. o Never use another person?s prescription opioids. ? Store prescription opioids in a secure place and out of reach of others (this may include visitors, children, friends, and family). ? Safely dispose of unused prescription opioids: Find your community drug take-back program or your pharmacy mail-back program, or flush them down the toilet, following guidance from the Food and Drug Administration (www.fda.gov/Drugs/Res ourcesForYou). ? Visit www.cdc.gov/drugoverdo se to learn about the risks of opioids abuse and overd (more content not included)... Normal [facility] Hep Func Panelon 02-17-2023 Bilirubin.indirect [Mass or moles/Vol] UTC Abnormal 0.1-0.9 [facility] Comment on above: Result Comment: Resu lt verified by Discern Rule. Performed result UTC (Unable to Calculate) was sent as an Alpha code due the inability to calculate a valid numeric value. Performed By: #### 2 [id number], [id number], [id number], 9905470, 7003888, [id number], 0167091, [id number] ####[facility] [address] [place] [address] Albumin [Mass/Vol] 3.7 g/dL Normal 3.3-5.0 [facility] Comment on above: Performed By: #### 2 [id number], [id number], 70767415, 4427989, 6187899, 43399406, 7678752, 0571459 ####[facility] [address] [place] [address] Albumin/Globulin (S) [Mass conc ratio] 1.3 Normal 1.1-2.2 [facility] Comment on above: Performed By: #### 2 380064, 77133623, 58213677, 9972771, 1862688, 01282913, 5252101, 6685350 ####[facility] [address] [place] [address] ALP [Catalytic activity/Vol] 62 Int._Unit/L Normal 21-98 [facility] Comment on above: Performed By: #### 2 515518, 95191104, 96960262, 9209320, 4232712, 26592732, 9917786, 6667889 ####[facility] [address] [place] [address] ALT No additional P-5'-P [Catalytic activity/Vol] 15 Int._Unit/L Normal 6-46 [facility] Comment on above: Performed By: #### 2 046157, 13987199, 48163752, 0932323, 7171625, 84776036, 6526379, 6758014 ####[address] [address] AST [Catalytic activity/Vol] 20 Int._Unit/L Normal 5-43 [facility] Comment on above: Performed By: #### 2 550453, 44025179, 26274064, 7762126, 5279647, 29854956, 1977803, 8157148 ####[address] [place] [address] Bilirubin [Mass/Vol] 0.3 mg/dL Normal 0.0-1.1 [facility] Comment on above: Performed By: #### 2 338852, 86697367, 13939304, 8561778, 5753416, 08179962, 8204446, 0383804 ####[address] [place] [address] Globulin (S) [Mass/Vol] 2.9 g/dL Normal 1.4-4.0 [facility] Comment on above: Performed By: #### 2 219903, 84429119, 95377375, 6686190, 1782211, 03859228, 4678517, 9285510 ####[facility] [address] [place] [address] Protein [Mass/Vol] 6.6 g/dL Normal 6.0-7.8 [facility] Comment on above: Performed By: #### 2 466948, 21679121, 54402435, 5046269, 3760657, 85210532, 9197824, 7911609 ####[facility] [address] [place] [address] Bilirubin.direct [Mass/Vol] mg/dL Normal 0.1-0.4 [facility] Comment on above: Performed By: #### 2 335898, 23373594, 04823113, 3033573, 4850351, 21187440, 5388218, 2048599 ####[facility] [address] [place] [address] Magnesiumon 02-17-2023 Magnesium [Mass/Vol] 1.7 mg/dL Normal 1.3-2.4 [facility] Comment on above: Performed By: #### 2 826901, 35493637, 37883611, 9621859, 1991785, 21723692, 9577159, 9694887 ####[facility] [address] [place] [address] Monitor Recordon 02-17-2023 Monitor Record [id number]#1. 00CD:127 Normal [facility] Monitor Record [id number]#1. 00CD:127 Normal [facility] Penitentiary Recordson 02-17 Penitentiary Records [id number]#1. 00CD:127 Normal [facility] PT & PTTon 02-17-2023 aPTT Coag (PPP) [Time] 31.5 second(s) Normal 25.1-36.5 [facility] Comment on above: Result Comment: Para meter [...] the same coagulation reagent and instrumentation as [facility]. Currently there are no coagulation studies available worldwide for children to 14 days, and no normal ranges. Heparin therapeutic range (represented by Anti-Factor Xa activity of 0.2 - 0.4 U/mL) corresponds to PTT of 56.6 - 109.0 sec. Performed By: #### 2 111112, 79758072, 40663561, 3251888, 0002871, 93947108, 1407850, 5501142 ####[facility] [address] [place] [address] INR Coag (PPP) [Relative time] 1.0 {INR} Invalid Interpretation Code [facility] Comment on above: Result Comment: INR results are specifically intended to assess patients stabilized on long-term Anticoagulation therapy suggested INR?s ?Less Intensive Anticoagulation? 2.0 ? 3.0 Conventional Range 3.0 ? 4.5 Performed By: #### 2 588030, 08847813, 40067328, 8226648, 1619525, 86411814, 9462171, 6462757 ####[facility] [address] [place] [address] PT Coag (PPP) [Time] 11.1 second(s) Normal 9.4-12.5 [facility] Comment on above: Result Comment: 15 d [...] the same coagulation reagent and instrumentation as [facility]. Currently there are no coagulation studies available worldwide for children to 14 days, and no normal ranges. Performed By: #### 2 202396, 04834133, 95559272, 8703426, 7875721, 98748391, 3754199, 6708240 ####[facility] [address] [place] [address] Pre-Arrival Noteon 3 Pre-Arrival Note Pre-Arrival Summary Name: ALMA Ordonez Current Date: 02/16/2023 23:54:49 EDT Gender: Date of : Age: Pre-Arrival Type: EMS ETA: 02/17/2023 00:19:00 EDT Primary Care Physician: Presenting Problem: Pre-Arrival User: Jacqui Luque RN Referring Source: Location: [place] Completion Date/Time: 02/16/2023 00:00:00 [facility] Emergency Department Pre-Hospital Report Form Vital Signs: Pre-Hospital Report: Treatment in Route: Response to Treatment: Misc. Issues: Normal [facility] RAD - Preliminary Cat Scan R eporton 02-17-2023 RAD - Preliminary Cat Scan Report [id number]#1.0 0CD:127 Normal [facility] Transfer Documentson 023 Transfer Documents [id number]#1. 00CD:127 Normal [facility] Troponin 0 Hr.on 02-17-2023 Troponin I.cardiac [Mass/Vol] 5.80 pg/mL Low 15.90-38.40 [facility] Comment on above: Result Comment: The 95% CI (Confidence Interval) PPV (Positive Predictive Value) for myocardial infarction in females is 38 pg/mL, in males 51 pg/mL. The results should be used in conjunction with clinical conditions of myocardial infarction. (Access High Sensitivity Troponin I Instructions For Use, [employer], May 2018) Performed By: #### 4 [id number] #### [facility] [address] [place] [address] Troponin 3 Hr.on 02-17-2023 Troponin I.cardiac [Mass/Vol] 6.30 pg/mL Low 15.90-38.40 [facility] Comment on above: Result Comment: The 95% CI (Confidence Interval) PPV (Positive Predictive Value) for myocardial infarction in females is 38 pg/mL, in males 51 pg/mL. The results should be used in conjunction with clinical conditions of myocardial infarction. (Access High Sensitivity Troponin I Instructions For Use, [employer], May 2018) Performed By: #### 4 [id number] #### [facility] [address] 9[address]6957 XR Chest Single Viewon 02-17 XR Chest Single View Exam Date/Time: 02/17/2023 00:34 EDT Reason for Exam: Chest pain Report IMPRESSION: NO EVIDENCE OF ACTIVE CHEST DISEASE. CLINICAL HISTORY: Chest pain. COMPARISON: 02/13/2023. COMMENT: AP view portable. The heart is upper limits of normal to borderline enlarged. The mediastinum is unremarkable. No infiltration nor pleural effusion is evident. There are chronic bony findings. No significant change is noted when compared to the prior exam. Ordering Provider: Tita Albright FINAL REPORT Dictated: 02/17/2023 9:49 am Harjit Bhardwaj M.D. Signed (Electronic Signature): 02/17/2023 9:49 am Signed by: Harjit Bhardwaj M.D. Transcribed by: TREVIN Technologist: TEGAN Technical Comments Radiation Dose: Ka,r in mGy = na DAP = na Normal [facility] eGFRon 02-17-2023 GFR/1.73 sq M.predicted among non-blacks MDRD (S/P/Bld) [Vol rate/Area] 73 mL/min/1.73 m2 Normal >=59 [facility] Comment on above: Order Comment: Order added by Discern Expert. Result Comment: Food And Nutrition Supervisor lokesh kidney disease could be indicated at eGFR's of less than 60 mL/min/1.73m2. Kidney failure is indicated at less than 15 mL/min/1.73m2. Performed By: #### 2 976064, 51921618, 26020171, 5040339, 1433766, 29344725, 9004331, 0441437 ####[facility] [address] [place] [address] Discharge Instructionson Discharge Instructions [id number]#1.0 0CD:127 Normal [facility] Transfer Documentson 023 Transfer Documents [id number]#1.0 0CD:127 Normal [facility] CHEMISTRYOrdered By: Lab ROP User on 02-14-2023 Glucose [Mass/Vol] 112 mg/dL High 55 - 99 mg/dL [facility] POC Subsection Comment on above: Result Comment: Clemente MCCLAIN POC Device SN [id number] Invalid Interpretation Code [facility] POC Subsection POC User ID [id number] Invalid Interpretation Code [facility] POC Subsection POC Username JONH MOCTEZUMA Invalid Interpretation Code [facility] POC Subsection Capillary Glucose POCon 02-02 Glucose [Mass/Vol] 112 mg/dL High 55-99 [facility] Comment on above: Result Comment: Clemente MCCLAIN Performed By: #### 1 4101438, 7977090, 8111992, 47005210, 0044920, 3338557, 89402801, 3722403 #### [facility] [address] [place] [address] Cortisolon 02-14-2023 Cortisol [Mass/Vol] 18.8 microgram/dL Invalid Interpretation Code 6.2-19.4 [facility] Comment on above: Result Comment: Plea se Note: The reference interval and flagging for this test is for an AM collection. If this is a PM collection please use: Cortisol PM: 2.3-11.9 Performed at: [address] [id number] PhD Desmond Jimenez Performed By: #### 1 1734590, 5694102, 7685892, 46025168, 8358984, 7348382, 40191627, 7010116 #### [facility] [address] [place] [address] Cortisol [Mass/Vol] 22.4 microgram/dL High 6.2-19.4 [facility] Comment on above: Result Comment: Plea se Note: The reference interval and flagging for this test is for an AM collection. If this is a PM collection please use: Cortisol PM: 2.3-11.9 Performed at: [address] [id number] PhD Desmond Jimenez Performed By: #### 4 [id number] #### [facility] [address] [place] [address] Inpatient Patient Summaryon 02-14-2023 Inpatient Patient Summary OTILIO SUAREZ :1955 Visit Date:02/13/2023 Inpatient Discharge Instructions Your Care Team Admitting Physician - Isaías FLEMING DO Consulting Physician - Mahesh Lema MD Reason for Your Visit Unresponsive episode Your Diagnosis Syncope Seizure Diabetes CAD in [place] artery A-fib Diastolic heart failure Hypertension Hyperlipidemia Dementia Chronic GERD Obesity Chronic anemia Peripheral neuropathy Altered mental status Seizure Tests Performed Alcohol Level Ammonia Level Automated Diff Blood Gas Art, with Lytes, Gluc, Lact BMP Capillary Glucose POC CBC w/ Auto Diff Cortisol Drug Screen Urine eGFR Hepatic Function Panel PT & PTT Troponin 0 Hr. Troponin 6 Hr. UA With Cult Reflex CT Head or Brain w/o Contrast XR Chest Single View This Is Your Medications List acetaminophen (acetaminophen 325 mg Tab) aspirin (aspirin 81 mg Oral EC Tab) cholecalciferol (cholecalciferol 1000 intl units (25 mcg) oral tablet) dulaglutide (Trulicity Pen 0.75 mg/0.5 mL subcutaneous solution) furosemide (furosemide 20 mg Tab) levetiracetam (levETIRAcetam 750 mg oral tablet, dispersible) loratadine (loratadine 10 mg Tab) magnesium oxide (magnesium oxide 400 mg Tab) metformin (metformin 1000 mg oral tablet, extended release) midodrine (midodrine 5 mg Tab) omeprazole (omeprazole 20 mg Cap-DR) pravastatin (pravastatin 40 mg Tab) [Image Removed: STOP]Stop taking these medications clopidogrel (clopidogrel 75 mg Tab) diltiazem (Cardizem 60 mg Tab) donepezil (Aricept 10 mg Tab) donepezil (donepezil 5 mg Tab) Discharge Vitals Temperature (Axillary) 36.4 ?C Heart Rate (Monitored) 67 Blood Pressure 128/73 Blood Pressure 164/84(Standing) Blood Pressure 148/81(Supine) Weight 98.6 kg What to do next Instructions From Your Doctor Event Name Event Result Discharge Activity Resume normal activities in 24 hours Discharge Diet(s) Calorie Controlled- 1800 Calorie Diet Pending Diagnostic Test Results None Pharmacy Information Other: through [facility] Previously Scheduled Follow-Up Appointments 2022 10:15 AM EDT With: Zia LEMONS, Jaja Dash Where: [facility] New Follow Up Appointments after Discharge Follow Up with Dax LEMONS, Mahesh Johns When: Within 2 weeks Where: [address] [place] [address]- [phone] Follow Up with HERMILO THORNE MD When: Within 2 to 4 days Where: [address] [place] [address]- Medications What How Much When Instructions Next Dose New midodrine (midodrine 5 mg Tab) 1 Tablets By Mouth 2 times a day Printed Prescription Unchanged acetaminophen (acetaminophen 325 mg Tab) 2 Tablets By Mouth Every 6 hours as needed for Pain Unchanged aspirin (aspirin 81 mg Oral EC Tab) 1 Tablets By Mouth Every day Unchanged cholecalciferol (cholecalciferol 1000 intl units (25 mcg) oral tablet) 1 Tablets By Mouth Every day Unchanged dulaglutide (Trulicity Pen 0.75 mg/ 0.5 mL subcutaneous solution) 0.75 Milligram Subcutaneous Thursday Unchanged furosemide (furosemide 20 mg Tab) 1 Tablets By Mouth Every day as needed for Edema Unchanged levetiracetam (levETIRAcetam 750 mg oral tablet, dispersible) 1 Tablets By Mouth 2 times a day Unchanged loratadine (loratadine 10 mg Tab) 1 Tablets By Mouth Every day as needed for Itching Unchanged magnesium oxide (magnesium oxide 400 mg Tab) 1 Tablets By Mouth Every day Unchanged metformin (metformin 1000 mg oral tablet, extended release) 1 Tablets By Mouth 2 times a day Unchanged omeprazole (omeprazole 20 mg Cap-DR) 1 Capsules By Mouth Every day Unchanged pravastatin (pravastatin 40 mg Tab) 1 Tablets By Mouth Once a day (at bedtime) What How Much When Comments Stop Taking clopidogrel (clopidogrel 75 mg Tab) 1 Tablets By Mouth Every day Stop Taking diltiazem (Cardizem 60 mg Tab) 0.5 Tablets By Mouth 2 times a day Stop Taking donepezil (Aricept 10 mg Tab) 1 Tablets By Mouth Once a day (at bedtime) Stop Taking donepezil (donepezil 5 mg Tab) 1 Tablets By Mouth Once a day (at bedtime) Test Results CBC BMP WBC: 5.9 E9/L (02/13/23 01:14:00) Glucose Lvl: 128 mg/dL (02/13/23:20:00) RBC: 4.1 E12/L Low (02/13/23 01:14:00) BUN: 41 mg/dL High (02/13/23:20:00) HGB: 11.6 gm/dL Low (02/13/23:14:00) Creatinine: 1.2 mg/dL (02/13/23:20:00) Hct: 35.4 % Low (02/13/23 01:14:00) BUN/Creat Ratio: 34 High (02/13/23:20:00) MCV: 85.9 fL (02/13/23 01:14:00) Sodium Lvl: 136 mmol/L (02/13/23 01:20:00) MCH: 28.3 pg (02/13/23 01:14:00) Potassium Lvl: 4.2 mmol/L (02/13/23:20:00) MCHC: 32.9 gm/dL (02/13/23 01:14:00) Chloride: 102 mmol/L (02/13/23 01:20:00) RDW: 14.4 % High (02/13/23 01:14:00) CO2: 26 mmol/L (02/13/23 01:20:00) Platelet: 195 E9/L (02/13/23 01:14:00) AGAP: 12 mEq/L (02/13/23 01:20:00) MPV: 9.5 fL (02/13/23 01:14:00) (more content not included)... Normal [facility] Interdisciplinary Note - Hermelindo e Manageron 02-14-2023 Interdisciplinary Note - Greens Planter Patient was discharged back to [facility] prior to CRM seeing. Daughter transported. [facility] Comment on above: Result Comment: Elec tronically Signed By: Tommie GONZALEZ, Meredith\.br\Date and Time Signed: 02/14/23 13:43 EDT Monitor Recordon 02-14-2023 Monitor Record [id number]#1. 00CD:127 Normal [facility] Monitor Record [id number]#1. 00CD:127 Normal [facility] Monitor Record [id number]#1. 00CD:127 Normal [facility] Ammoniaon 02-13-2023 Ammonia (P) [Moles/Vol] 18 mcmol Normal 11-35 [facility] Comment on above: Performed By: #### 1 2678324, 5531368, 5769407, 46623862, 2143701, 3717754, 14467701, 4369564 ####[facility] [address] [place] [place] [address] Auto Diffon 02-13-2023 Basophils/100 WBC (Bld) 0.9 % Normal 0.0-2.0 [facility] Comment on above: Order Comment: Order Added by Discern Expert. Performed By: #### 1 9414532, 1528891, 4898929, 89252187, 9299771, 8178797, 87557374, 0615448 #### [facility] [address] [place] [address] Basophils/Leukocytes Auto (Bld) [Pure # fraction] 0.1 E9/L Normal 0.0-0.2 [facility] Comment on above: Order Comment: Order Added by Discern Expert. Performed By: #### 1 2148799, 7059655, 3905378, 66054897, 9558565, 2634688, 89031151, 6437917 #### [facility] [address] [place] [address] Eosinophils/100 WBC (Bld) 7.2 % Normal 0.0-8.0 [facility] Comment on above: Order Comment: Order Added by Discern Expert. Performed By: #### 1 1148865, 9437917, 7857758, 08802530, 0847176, 3609919, 07624075, 5311204 #### [facility] [address] [place] [address] Eosinophils/Leukocytes Auto (Bld) [Pure # fraction] 0.4 E9/L Normal 0.0-0.5 [facility] Comment on above: Order Comment: Order Added by Discern Expert. Performed By: #### 1 7575576, 0063855, 5995642, 77163867, 5902392, 9075154, 85680681, 2854023 #### [facility] [address] [place] [address] Lymphocytes/100 WBC (Bld) 38.5 % Normal 14.0-50.0 [facility] Comment on above: Order Comment: Order Added by Discern Expert. Performed By: #### 1 0706397, 2171943, 3042044, 82464966, 5909178, 6277252, 39242412, 5460307 #### [facility] [address] [place] [address] Lymphocytes/Leukocytes Auto (Bld) [Pure # fraction] 2.3 E9/L Normal 1.0-4.0 [facility] Comment on above: Order Comment: Order Added by Pearl Expert. Performed By: #### 1 1248922, 0805367, 9046404, 28156379, 0323062, 2201883, 04241840, 0536612 #### [facility] [address] [place] [address] Monocytes/100 WBC (Bld) 7.2 % Normal 4.0-14.0 [facility] Comment on above: Order Comment: Order Added by Discern Expert. Performed By: #### 1 4416294, 9339460, 4594343, 53986442, 1571772, 8799365, 51155353, 1701412 #### [facility] [address] [place] [address] Monocytes/Leukocytes Auto (Bld) [Pure # fraction] 0.4 E9/L Normal 0.2-1.0 [facility] Comment on above: Order Comment: Order Added by Pearl Expert. Performed By: #### 1 8312394, 3426809, 0689439, 05798744, 1380864, 2932920, 02147222, 1066563 #### [facility] [address] [place] [address] Neutrophils/100 WBC (Bld) 46.2 % Normal 36.0-75.0 [facility] Comment on above: Order Comment: Order Added by Pearl Expert. Performed By: #### 1 2195926, 8728017, 5265087, 74517603, 0970915, 1368248, 80163172, 8290499 #### [facility] [address] [place] [address] Neutrophils/Leukocytes Auto (Bld) [Pure # fraction] 2.7 E9/L Normal 2.0-7.5 [facility] Comment on above: Order Comment: Order Added by Pearl Expert. Performed By: #### 1 7206923, 6692396, 9912512, 14510200, 6449390, 4904149, 89690232, 8357877 #### [facility] [address] [place] [address] BMPon 02-13-2023 Creatinine [Mass/Vol] 1.2 mg/dL Normal 0.5-1.3 [facility] Comment on above: Performed By: #### 1 0168793, 6232477, 8091279, 74021497, 6053287, 2185726, 23940548, 0213878 #### [facility] [address] [place] [address] Urea nitrogen [Mass/Vol] 41 mg/dL High 5-21 [facility] Comment on above: Performed By: #### 1 6902924, 8010565, 9830993, 31895200, 1424759, 8539362, 16550572, 4840961 #### [facility] [address] [place] [address] Urea nitrogen/Creatinine [Mass ratio] 34 No Units High 10-20 [facility] Comment on above: Performed By: #### 1 2163195, 1472718, 4706683, 33590321, 2443913, 3245565, 31109320, 8224622 #### [facility] [address] [place] [address] Anion gap [Moles/Vol] 12 mmol/L Normal 6-16 [facility] Comment on above: Performed By: #### 1 7750335, 0719642, 7710004, 39264863, 9223937, 9167781, 00808926, 5759744 #### [facility] [address] [place] [address] Calcium [Mass/Vol] 9.1 mg/dL Normal 8.9-11.1 [facility] Comment on above: Performed By: #### 1 9544649, 1316028, 1336510, 40243251, 5954520, 8333281, 99081050, 7889393 #### [facility] [address] [place] [address] Chloride [Moles/Vol] 102 mmol/L Normal 101-111 [facility] Comment on above: Performed By: #### 1 4233343, 2378729, 1369037, 84613772, 8086443, 2775425, 93378109, 3329762 #### [facility] [address] [place] [address] CO2 [Moles/Vol] 26 mmol/L Normal 21-[address] [facility] Comment on above: Performed By: #### 1 2044957, 7690326, 1733200, 17239070, 2257408, 1403631, 07271254, 5058854 #### [facility] [address] [place] [address] Glucose [Mass/Vol] 128 mg/dL Normal 55-199 [facility] Comment on above: Result Comment: If t his glucose result represents a fasting glucose, interpretation should refer to the following reference range: 55-99 mg/dL Performed By: #### 1 9779366, 5537523, 1435117, 69932953, 8159265, 3804288, 60586798, 7605427 #### [facility] [address] [place] [address] Potassium [Moles/Vol] 4.2 mmol/L Normal 3.5-5.3 [facility] Comment on above: Performed By: #### 1 6226511, 8247278, 7532326, 10849004, 1661114, 5985333, 36850904, 9112899 #### [facility] [address] [place] [address] Sodium [Moles/Vol] 136 mmol/L Normal 135-145 [facility] Comment on above: Performed By: #### 1 5302455, 7071067, 4629509, 83505852, 5988128, 7706177, 69285249, 9983480 #### [facility] [address] [place] [address] Blood Gas Art, with Lytes, G kj, [place] 02-13-2023 a/A Ratio Art 79.30 % Normal >=0.80 [facility] Comment on above: Performed By: #### 4 88830174 #### [facility] [address] [place] [address] AaDO2 Art 19.4 mmHg High 5.0-15.0 [facility] Comment on above: Performed By: #### 4 65699145 #### [facility] [address] [place] [address] Allens Test Positive Normal [facility] Comment on above: Performed By: #### 4 34775675 #### [facility] [address] [place] [address] Base Excess Arterial 1.7 mmol/L Low >=2.8 [facility] Comment on above: Performed By: #### 4 94020359 #### [facility] [address] [place] [address] cCa2+ Art 4.95 mg/dL Normal 4.40-5.30 [facility] Comment on above: Performed By: #### 4 87565299 #### [facility] [address] [place] [address] cCl- Art 102.0 mmol/L Normal 101.0-111.0 [facility] Comment on above: Performed By: #### 4 71300254 #### [facility] [address] [place] [address] cGlu Art 127 mg/dL High 55-99 [facility] Comment on above: Performed By: #### 4 14532707 #### [facility] [address] [place] [address] cK+ Art 3.9 mmol/L Normal 3.5-5.3 [facility] Comment on above: Performed By: #### 4 62658708 #### [facility] [address] [place] [address] cLac Art .4 mmol/L Low .5-2.2 [facility] Comment on above: Performed By: #### 4 81506055 #### [facility] [address] [place] [address] 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 operator+ Art 140.0 mmol/L Normal 135.0-145.0 [facility] Comment on above: Performed By: #### 4 91027664 #### [facility] [address] [place] [address] Drawn by tmj Invalid Interpretation Code [facility] Comment on above: Performed By: #### 4 [id number] #### [facility] [address] [place] [address] FCOHb Art 2.0 % Normal 1.5-4.9 [facility] Comment on above: Result Comment: Refe rence range Nonsmoker <1.5% Smoker <5.0% Heavy Smoker <9.0% Performed By: #### 4 [id number] #### [facility] [address] [place] [address] FIO2 BG 21 Invalid Interpretation Code [facility] Comment on above: Performed By: #### 4 [id number] #### [facility] [address] [place] [address] FMetHb Art 0.9 % Normal 0.0-1.9 [facility] Comment on above: Performed By: #### 4 [id number] #### [facility] [address] [place] [address] FO2Hb Art 92.2 % Low 93.0-100.0 [facility] Comment on above: Performed By: #### 4 [id number] #### [facility] [address] [place] [address] HCO3 (Bld) [Moles/Vol] 25.8 mmol/L Normal 22.0-26.0 [facility] Comment on above: Performed By: #### 4 [id number] #### [facility] [address] [place] [address] Hemoglobin (Bld) [Mass/Vol] 10.7 g/dL Low 12.0-17.0 [facility] Comment on above: Performed By: #### 4 [id number] #### [facility] [address] [place] [address] Oxygen saturation in Blood 95.0 % Normal 95.0-100.0 [facility] Comment on above: Performed By: #### 4 [id number] #### [facility] [address] [place] [address] P CO2 Arterial 45.9 mmHg High 35.0-45.0 [facility] Comment on above: Performed By: #### 4 [id number] #### [facility] [address] [place] [address] P O2 Arterial 74.6 mmHg Low 80.0-100.0 [facility] Comment on above: Performed By: #### 4 [id number] #### [facility] [address] [place] [id number] pH Arterial 7.381 Normal 7.350-7.450 [facility] Comment on above: Performed By: #### 4 [id number] #### [facility] [address] [place] [address] Sample Site R Radial Normal [facility] Comment on above: Performed By: #### 4 [id number] #### [facility] [address] [place] [address] Sample Type Arterial Draw Normal [facility] Comment on above: Performed By: #### 4 [id number] #### [facility] [address] [place] [address] CBC w/ Auto Diffon 3 Erythrocyte distribution width (RBC) [Ratio] 14.4 % High 10.9-14.2 [facility] Comment on above: Performed By: #### 1 [id number], 7618825, 5924938, 30931890, 0049327, 7102381, 24916890, 6314823 #### [facility] [address] [place] [address] Hematocrit (Bld) [Volume fraction] 35.4 % Low 37.7-49.0 [facility] Comment on above: Performed By: #### 1 [id number], 0728707, 3785081, 58804415, 5290302, 6572641, 01930277, 3917167 #### [facility] [address] [place] [address] Hemoglobin (Bld) [Mass/Vol] 11.6 g/dL Low 13.5-17.5 [facility] Comment on above: Performed By: #### 1 [id number], 7958357, 2895707, 71374194, 8420142, 3907815, 12113363, 7644117 #### [facility] [address] [place] [address] MCH (RBC) [Entitic mass] 28.3 pg Normal 27.0-34.0 [facility] Comment on above: Performed By: #### 1 [id number], 8228443, 9042499, 77362730, 7489050, 8754652, 52862026, 4445701 #### [facility] [address] [place] [address] MCHC (RBC) [Mass/Vol] 32.9 g/dL Normal 31.4-36.0 [facility] Comment on above: Performed By: #### 1 [id number], 7729578, 3332461, 80646229, 2268653, 7873829, 17847796, 2739096 #### [facility] [address] [place] [address] MCV (RBC) [Entitic vol] 85.9 fL Normal 80.0-100.0 [facility] Comment on above: Performed By: #### 1 3507178, 4451217, 9239436, 69496051, 8633589, 6598519, 53969958, 7490504 #### [facility] [address] [place] [address] Platelet mean volume (Bld) [Entitic vol] 9.5 fL Normal 6.4-10.8 [facility] Comment on above: Performed By: #### 1 2124870, 0447838, 9974398, 69512968, 1605061, 1360012, 65500631, 4861381 #### [facility] [address] [place] [address] Platelets (Bld) [#/Vol] 195.0 E9/L Normal 150.0-500.0 [facility] Comment on above: Performed By: #### 1 5081331, 8462007, 8722216, 66919101, 4010030, 1035144, 21214880, 3239319 #### [facility] [address] [place] [address] RBC (Bld) [#/Vol] 4.1 E12/L Low 4.3-5.9 [facility] Comment on above: Performed By: #### 1 6101270, 1168108, 5692090, 95459970, 6322465, 6640107, 45734733, 4001788 #### [facility] [address] [place] [address] WBC corrected for nucl RBC Auto (Bld) [#/Vol] 5.9 E9/L Normal 4.0-11.[address] [facility] Comment on above: Performed By: #### 1 6034559, 8327367, 2139653, 02302520, 7382413, 2058231, 99948013, 9947854 #### [facility] [address] [place] [address] CHEMISTRYOrdered By: Lab ROP User on 02-13-2023 Glucose [Mass/Vol] 100 mg/dL High 55 - 99 mg/dL [facility] POC Subsection Comment on above: Result Comment: Clemente christopher RN/ POC Device SN [id number] Invalid Interpretation Code [facility] POC Subsection POC User ID [id number] Invalid Interpretation Code [facility] POC Subsection POC Username PALAK PEREIRA Invalid Interpretation Code [facility] POC Subsection Glucose [Mass/Vol] 124 mg/dL High 55 - 99 mg/dL [facility] POC Subsection POC Device SN [id number] Invalid Interpretation Code [facility] POC Subsection POC User ID [id number] Invalid Interpretation Code [facility] POC Subsection POC Username CHRIS BARRERA Invalid Interpretation Code [facility] POC Subsection CHEMISTRYOrdered By: SYSTEM SYSTEM on [...] 02-13-2023 CT Head or Brain w/o Contrast Exam Date/Time: 02/13/2023 01:34 EDT Reason for Exam: Mental status change, unknown cause;Other (please specify) Report IMPRESSION: NO EVIDENCE OF ACUTE INTRACRANIAL HEMORRHAGE. CHRONIC FINDINGS. PROMINENT PARANASAL SINUS DISEASE AND BILATERAL MASTOID DISEASE. CLINICAL HISTORY: Mental status change, unknown cause. Patient unresponsive. COMPARISON: 01/17/2023. COMMENT: Unenhanced images were obtained. The ventricles appear within normal limits. The basal cisterns are prominent. The sylvian fissures and cortical sulci bilaterally are dilated. There is no mass effect nor midline shift. There are small focal areas of decreased attenuation involving the left basal ganglia and deep left frontal white matter, consistent with lacunar infarcts. There are more subtle ill-defined areas of mildly decreased attenuation involving cerebral white matter bilaterally, that are nonspecific, but with small vessel ischemic changes suspected. There is no evidence of recent intracranial hemorrhage nor extra-axial hematoma. No mass lesion is evident. No skull fracture is noted. There are calcifications of distal internal carotid arteries. There is soft tissue opacification of many of the mastoid air cells bilaterally. There are prominent soft tissue densities opacifying or partially opacifying both ethmoid sinuses, right maxillary sinus, and left frontal sinus, and there is less prominent mucosal thickening involving the left maxillary sinus, the left frontal sinus, and minimally the sphenoid sinuses. There is fluid in the right frontal sinus. All CT scans at this facility use dose modulation, iterative reconstruction, and/or weight based dosing when appropriate to reduce radiation dose to as low as reasonably achievable. Ordering Provider: Jalen Danielle FINAL REPORT Dictated: 02/13/2023 8:19 am Harjit Bhardwaj M.D. Signed (Electronic Signature): 02/13/2023 8:19 am Signed by: Harjit Bhardwaj M.D. Transcribed by: TREVIN Technologist: MMM Normal [facility] Capillary Glucose POCon 02-02 Glucose [Mass/Vol] 100 mg/dL High 55-99 [facility] Comment on above: Result Comment: Clemente christopher RN/ Performed By: #### 2 [id number] ####[facility] [address] [place] [address] Glucose [Mass/Vol] 124 mg/dL High 55-99 [facility] Comment on above: Performed By: #### 1 [id number], 6702067, 0230196, 31914920, 4788965, 3762489, 60511604, 8239078 #### [facility] [address] [place] [address] Consent for Treatmenton 02-02 Consent for Treatment [id number]. 00CD:127 Normal [facility] Consultation Noteon 02-14-20 Consultation Note Chief Complaint Unresponsive episode History of Present Illness Patient is a very pleasant 67-year-old diabetic gentleman who resides at [facility], with apparent history of atrial fibrillation previously on Eliquis therapy, Coreg and Plavix, now currently on Plavix and short acting Cardizem 30 mg twice daily, and history of seizures on Keppra therapy. I recently saw the patient in consultation in the hospital on 12/21/2022 and then again on 01/18/2023 after he was admitted for similar episode of falling down at [facility]. The patient does not remember anything that happened to him at [facility] prior to his last admission, but apparently either had a syncopal episode and fell down or fell down onto the ground. Last evening the patient got up to go to the bathroom, and apparently had a seizure type episode followed by syncope. Patient was brought to [facility] where an EKG showed what appeared to be bradycardia. Repeat EKG last evening showed sinus bradycardia with incomplete right bundle branch block. His troponins have been negative x2. Patient is no longer on Eliquis. Orthostatic blood pressure showed borderline orthostatics. Patient's most recent echocardiogram dated 12/22/2022 is as below: (12/22/2022 10:05 EDT Echo Transthoracic Complete) Interpretation Summary moderate left ventricular hypertrophy. Ejection Fraction = 60-65%. Diastolic dysfunction, Grade II (pseudonormalization pattern). The left atrium is mild to moderately dilated. There is trace tricuspid regurgitation. Right ventricular systolic pressure is 30 mmHg. Patient appears to be in normal sinus rhythm. [1] During her last admission the patient underwent dobutamine echocardiogram which is described as below: (01/19/2023 11:46 EDT EC Stress Echo Complete w/ Contrast) Interpretation Summary Normal, adequate, dobutamine echocardiogram. Negative for ischemia by EKG and echocardiograph criteria. No anginal symptoms noted. No arrhythmias noted. Excellent chronotropic competence for age. Decrease sensitivity due to poor echo windows requiring Definity agent. This is a low risk study. Ejection Fraction = 60-65%. [1] Currently the patient is laying down in bed, answers questions but is sort of annoyed. CT of his head was negative. Review of Systems Constitutional: no fever, no sweats, no weakness Skin: no rash, no lesions, nobruising/petechiae ENMT: no sore throat, no congestion, no hoarseness Respiratory: no shortness of breath, no cough, no orthopnea, no wheezing Cardiovascular: no chest pain, no palpitations, no edema Gastrointestinal: no nausea, no vomiting, no diarrhea, no GI bleeding Genitourinary: no anuria/oliguria no hematuria Musculoskeletal: no back pain, no trauma Neurologic: no headache, no dizziness, no numbness, no weakness Psychiatric: no sleeping problems, no irritability, no anxiety/depression. Heme/Lymph: no bleeding tendency, no bruising tendency Allergy/Immunologic: no recurrent infections, no impaired immunity Additional ROS info: Except as noted in the above Review of Systems and in the History of Present Illness all other systems have been reviewed and are negative or noncontributory. Physical Exam Vitals & Measurements T: 36.1 ?C(Oral) HR: 51(Monitored) RR: 20 BP: 123/75 SpO2: 100% HT: 185 cm WT: 94.3 kg General: alert, no acute distress Skin: warm, dry intact Head: atraumatic, normocephalic Neck: Trachea midline, no JVD, no bruit Eye: normal conjunctiva, sclera clear ENMT: oral mucosa moist Cardiovascular: regular rate and rhythm, nomurmur normal peripheral perfusion Respiratory: Lungs CTA, respirations non labored Chest wall: no deformity. Gastrointestinal: soft, non distended, no tenderness, no guarding. Back: No tenderness, Normal ROM, Normal alignment. Extremities: no edema, no deformity, no trauma Neurological: oriented x 4, LOC appropriate for agesensation equal & normal bilaterally, speech normal Psychiatric: cooperative, affect appropriate for age, normal judgement, normal psychiatric thoughts. Assessment/Plan 1. Syncope (R55: Syncope and collapse) Patient [...] Patient may continue baby aspirin. He will contin (more content not included)... Normal [facility] Comment on above: Result Comment: Elec tronically Signed By: Dax LEMONS, Mahesh Johns\.br\Date and Time Signed: 02/13/23 11:13 EDT DNR - Do Not Resuscitateon 0 02-13-2023 DNR - Do Not Resuscitate [id number] 0CD:127 Normal [facility] ED Clinical Summaryon 2022 ED Clinical Summary [place] [id number] ED Clinical Summary Person Information Name: OTILIO SUAREZ/[facility] Age: 67 Years : 1955 Sex: Male Language: Ivorian PCP: HERMILO THORNE MD Marital Status: Visit Id: Visit Reason: Altered mental status; Seizure; UNRESPONSIVE Speciality: Acuity: 2 Enc Type: Observation Med Service: Medical Arrival: 02/13/2023 00:22:10 Discharge: LOS: 000 10:10 Checkin: 02/13/2023 00:22:10 Checkout: 02/13/2023 10:32:18 Dispo Type: Admitted as IP to this Hosp EVENTS: Event Name Event Status Request Date/Time Start Date/Time Complete Date/Time Arrive Complete 02/13/2023 00:22:10 02/13/2023 00:22:10 02/13/2023 00:22:10 Document Home Meds Complete 02/13/2023 00:22:10 02/13/2023 09:47:26 02/13/2023 09:47:26 Triage Complete 02/13/2023 00:22:10 02/13/2023 00:26:10 02/13/2023 00:26:10 Bed Assign Complete 02/13/2023 00:23:36 02/13/2023 00:23:36 02/13/2023 00:23:36 Dr Exam Complete 02/13/2023 00:23:36 02/13/2023 00:42:31 02/13/2023 00:42:31 RN Exam Complete 02/13/2023 00:23:36 02/13/2023 01:38:51 02/13/2023 01:38:51 EKG Complete 02/13/2023 00:25:18 02/13/2023 00:50:31 30 Day Return Request 02/13/2023 00:26:11 Registration Complete 02/13/2023 00:42:31 02/13/2023 02:53:28 02/13/2023 02:53:28 X-Ray Complete 02/13/2023 00:44:04 02/13/2023 01:33:57 02/13/2023 01:34:20 Meds Admin Complete 02/13/2023 00:44:04 02/13/2023 00:49:16 Pending Labs Complete 02/13/2023 00:44:04 02/13/2023 04:21:56 Lab Complete 02/13/2023 00:44:04 02/13/2023 04:21:56 RT Tx/ABG Request 02/13/2023 00:44:04 Urine Collect Complete 02/13/2023 00:44:04 02/13/2023 04:21:56 RT Request 02/13/2023 00:44:04 CT Complete 02/13/2023 00:44:04 02/13/2023 01:33:55 02/13/2023 01:34:09 Pending Labs Complete 02/13/2023 01:10:32 02/13/2023 01:10:32 02/13/2023 01:10:33 Pending Labs Complete 02/13/2023 01:14:39 02/13/2023 01:14:39 02/13/2023 01:37:19 Lab Complete 02/13/2023 01:14:39 02/13/2023 01:14:39 02/13/2023 01:37:19 Pending Labs Complete 02/13/2023 01:22:51 02/13/2023 01:22:51 02/13/2023 01:23:01 Lab Complete 02/13/2023 01:22:51 02/13/2023 01:22:51 02/13/2023 01:23:01 Wet Read Request 02/13/2023 01:34:20 NPO Request 02/13/2023 01:38:51 Fall Risk Request 02/13/2023 01:38:51 Meds Admin Complete 02/13/2023 01:53:00 02/13/2023 02:03:57 Consult Request 02/13/2023 01:55:34 Hospitalist Consult Request 02/13/2023 01:55:35 Reg Complete Request 02/13/2023 02:53:28 Patient Care Request 02/13/2023 06:27:04 Patient Care Request 02/13/2023 06:27:04 Patient Care Request 02/13/2023 06:27:04 Patient Care Request 02/13/2023 06:27:05 Consult Request 02/13/2023 08:40:41 Pending Labs Complete 02/13/2023 08:41:06 02/13/2023 09:25:09 ADDRESS: [address] [place] [id number] PHYS DOC NOTES: MEDICAL INFORMATION: Prescriptions Given: Medications to Continue with No Changes Other Medications acetaminophen (acetaminophen 325 mg Tab) 2 Tablets By Mouth every 6 hours as needed Pain. aspirin (aspirin 81 mg Oral EC Tab) 1 Tablets By Mouth every day. Refills: 0. cholecalciferol (cholecalciferol 1000 intl units (25 mcg) oral tablet) 1 Tablets By Mouth every day. Refills: 0. clopidogrel (clopidogrel 75 mg Tab) 1 Tablets By Mouth every day. diltiazem (Cardizem 60 mg Tab) 0.5 Tablets By Mouth 2 times a day. Refills: 0. donepezil (Aricept 10 mg Tab) 1 Tablets By Mouth once a day (at bedtime). donepezil (donepezil 5 mg Tab) 1 Tablets By Mouth once a day (at bedtime). dulaglutide (Trulicity Pen 0.75 mg/0.5 mL subcutaneous solution) 0.75 Milligram Subcutaneous Thursday. furosemide (furosemide 20 mg Tab) 1 Tablets By Mouth every day as needed Edema. levetiracetam (levETIRAcetam 750 mg oral tablet, dispersible) 1 Tablets By Mouth 2 times a day. loratadine (loratadine 10 mg Tab) 1 Tablets By Mouth every day as needed Itching. magnesium oxide (magnesium oxide 400 mg Tab) 1 Tablets By Mouth every day. Refills: 0. metformin (metformin 1000 mg oral tablet, extended release) 1 Tablets By Mouth 2 times a day. Refills: 0. omeprazole (omeprazole 20 mg Cap-DR) 1 Capsules By Mouth every day. pravastatin (pravastatin 40 mg Tab) 1 Tablets By Mouth once a day (at bedtime). PATIENT EDUCATION INFORMATION: Instructions: Follow up: DIAGNOSIS: 1:Unresponsive episode Normal [facility] ED Note-Physicianon 02-14-20 ED Note-Physician Basic Information Time Seen: Jalen Danielle MD 02/13/2023 00:42 Chief Complaint pt arrives via ems after possible seizure while in bed at senior living. pt unresponsive to verbal\painful stimuli History of Present Illness 67-year-old male with a history of dementia, bradycardia, systolic congestive heart failure, and seizures presents unresponsive here. Patient is demonstrated similar behavior in the past following a seizure. Patient himself offers no history as he is at this time unresponsive. Review of Systems A 10 point review of systems is negative except as noted above. Medical and Surgical History: Reviewed and noted Social history: Lives at home Tobacco: Denies Physical Exam Vitals & Measurements T: 36.1 ?C(Oral) HR: 44(Monitored) RR: 10 BP: 140/77 SpO2: 97% HT: 185 cm WT: 94.3 kg BMI: 27.55 This is a large moderately overweight 67-year-old male he appears to be asleep. He will not open his eyes or respond to a painful stimulus at this time. The skull is atraumatic. Pupils are 3 mm. The extraocular muscles cross midline left and right. Oral mucosa does appear to be dry. Patient does resist opening of the mouth. Heart sounds are somewhat distant but regular. His breathing is shallow but without accessory muscle usage. Breath sounds are equal bilaterally. The abdomen is soft there does not appear to be any tenderness or masses on deep palpation. The extremities show no deformity and his motor tone is symmetric to passive range of motion both upper and lower extremities. Medical Decision Making Patient has a sinus bradycardia here of 49. Despite the bradycardia he is maintaining a normal blood pressure. He does appear from reviewing the patient's previous EKGs that his pulse rate oftentimes is in the low 50s. The patient's blood gas on room air shows a pH is 7.38 with a PCO2 of 45 and a PO2 of 75. Electrolytes measured at potassium 3.9 sodium 140 chloride 102. Glucose was 127 I rechecked the patient shortly after 1:45 AM. The patient is awake he is answer my questions verbally. He states he is mouth is dry he would like some water to drink. The catheter was placed and he did not show any significant urine output so additional liter of fluid will be given here. In reviewing the patient's previous admission for similar syncopal episode they apparently did a 24-hour EEG monitor which did not show seizure. Neurology however did recommend Keppra at that time. The etiology of the patient's unresponsive episode is still uncertain. As the patient has dementia and observation. Here at the hospital would be warranted. Assessment/Plan 1. Unresponsive episode (R41.89: Other symptoms and [...] With Cult Reflex XR Chest Single View Medications Administered Given naloxone 1 mg/mL Soln, 2 mg, IV Push NS 1000 ml Bolus, 1000 mL, IV NS 500 ml Bolus, 500 mL, IV Disposition Plan Patient Discharge Condition Guarded Discharge Disposition Admit to observation telemetry Discharge Prescription List Prescriptions No active prescription medications Follow-up No qualifying data available Problem List/Past Medical History Ongoing A-fib CAD in [place] artery Chronic anemia Chronic GERD Dementia Diastolic heart failure Hyperlipidemia Hypertension Obesity Peripheral neuropathy Seizure Type 2 diabetes mellitus Historical No qualifying data Medications Inpatient No active inpatient medications Home acetaminophen 325 mg Tab, 650 mg= 2 tab(s), Oral, q6hr, PRN Aricept 10 mg Tab, 10 mg= 1 tab(s), Oral, Once a day (at bedtime) aspirin 81 mg Oral EC Tab, 81 mg= 1 tab(s), Oral, Daily Cardizem 60 mg Tab, 30 mg= 0.5 tab(s), Oral, BID cholecalciferol 1000 intl units (25 mcg) oral tablet, 25 mcg= 1 tab(s), Oral, Daily clopidogrel 75 mg Tab, 75 mg= 1 tab(s), Oral, Daily furosemide 20 mg Tab, 20 mg= 1 tab(s), Oral, Daily insulin lispro, 0-10 Units, SubCutaneous, QIDACHS Keppra 250 mg Tab, 750 mg= 3 tab(s), Oral, BID loratadine, 10 mg, Oral, Daily, PRN magnesium oxide 400 mg Tab, 400 mg= 1 tab(s), Oral, Waldo (more content not included)... Normal [facility] Comment on above: Result Comment: Elec tronically Signed By: Shashi LEMONS, Jalen\.br\Date and Time Signed: 02/13/23 06:18 EDT ED Patient Education Noteon 02-13-2023 ED Patient Education Note Normal [facility] ED Patient Summaryon 023 ED Patient Summary [place] [id number] Patient Discharge Instructions Person Information Name: OTILIO SUAREZ Age: 67 Years Arrival Date: 02/13/2023 00:22:10 Discharge Diagnosis: 1:Unresponsive episode Primary Care Physician: HERMILO THORNE MD Provider Information Primary Provider: Jalen Danielle MD Advanced State Inspector:None The exam and treatment you received in the Emergency Department were for an urgent problem and are not intended as complete care. It is important that you follow up with a doctor, nurse practitioner, or physician?s dental hygiene administrative assistant for ongoing care. If your symptoms become worse or you do not improve as expected and you are unable to reach your usual health care provider, you should return to the Emergency Department. We are available 24 hours a day. TOILIO SUAREZ has been given the following list of patient education materials, prescriptions and follow-up instructions: Follow-up Instructions: In the event that this physician does not participate in your insurance network, please consult with your insurance company to find a nearby participating provider. Patient Education Materials: A MESSAGE TO ALL PATIENTS REGARDING OPIOIDS PRESCRIPTION OPIOIDS: WHAT YOU NEED TO KNOW Prescription opioids can be used to help relieve gdgmyvha-fi-xfknon pain and are often prescribed following a surgery or injury, or for certain health conditions. These medications can be an important part of the treatment but also come with serious risks. It is important to work with your healthcare provider to make sure you are getting the safest, most effective care. WHAT ARE THE RISKS AND SIDE EFFECTS OF OPIOID USE? Prescription opioids carry serious risks of addiction and overdose, especially with prolonged use. An opioid overdose, often marked by slowed breathing, can cause sudden . The use of prescription opioids can have a number of side effects as well, even when taken as directed: ? Tolerance?meaning you might need to take more of the medication for the same pain relief ? Physical dependence?meaning you have symptoms of withdrawal when a medication is stopped ? Increased sensitivity to pain ? Constipation ? Nausea, vomiting, and dry mouth ? Sleepiness and dizziness ? Confusion ? Depression ? Low levels of testosterone that can result in lower sex drive, energy, and strength ? Itching and sweating RISKS ARE GREATER WITH: ? History of drug misuse, substance use disorder, or overdose ? Mental health conditions (such as depression or anxiety) ? Sleep apnea ? Older age (65 years and older) ? Avoid alcohol while taking prescription opioids. Also, unless specifically advised by your health care provider, medications to avoid include: ? Benzodiazepines (such as Xanax or Valium) ? Muscle relaxants (such as Soma or Flexeril) ? Hypnotics (such as Ambien or Lunesta) ? Other prescription opioids KNOW YOUR OPTIONS Talk to your health care provider about ways to manage your pain that don?t involve prescription opioids. Some of these options may actually work better and have fewer risks and side effects. Options may include: ? Pain relievers such as acetaminophen, ibuprofen, and naproxen ? Some medication that are also used for depression or seizures ? Physical therapy and exercise ? Cognitive behavioral therapy, a psychological, goal-directed approach, in which patients learn how to modify physical, behavioral, and emotional triggers of pain and stress. IF YOU ARE PRESCRIBED OPIOIDS FOR PAIN: ? Never take opioids in greater amounts or more often than prescribed. ? Follow up with your primary health care provider. o Work together to create a plan on how to manage your pain. o Talk about ways to help manage your pain that don?t involve prescription opioids. o Talk about any and all concerns and side effects. ? Help prevent misuse and abuse o Never sell or share prescription opioids. o Never use another person?s prescription opioids. ? Store prescription opioids in a secure place and out of reach of others (this may include visitors, children, friends, and family). ? Safely dispose of unused prescription opioids: Find your community drug take-back program or your pharmacy mail-back program, or flush them down the toilet, following guidance from the Food and Drug Administration (www.fda.gov/Drugs/Res ourcesForYou). ? Visit www.cdc.gov/drugoverdo se to learn about the risks of opioids abuse and overdose. ? If you believe you may be struggling with addiction, tell your health direct care specialist and ask for guidance or call SAMHSA?S National Helpline at 7-643-663-HELP. v Source: US Department of Health and Human Services/Center for Disease Control & Prevention [facility] Medications Given: Medication Dose Route Sodium Chloride 0.9% (more content not included)... Normal [facility] Ethanolon 02-13-2023 Ethanol [Mass/Vol] mg/dL Normal <=7 [facility] Comment on above: Performed By: #### 1 [id number], [id number], 2224947, 59910029, 0757028, 1608564, 29877567, [id number] #### [facility] [address] [id number] Blood GasesOrdered By: Rex Ravi on 02-13-2023 [...] 102.0 mmol/L Normal 101.0 - 111.0 mmol/L [facility] Resp Auto SS cGlu Art 127 mg/dL High 55 - 99 mg/dL [facility] Resp Auto SS cK+ Art 3.9 mmol/L Normal 3.5 - 5.3 mmol/L [facility] Resp Auto SS cLac Art 0.4 mmol/L Low 0.5 - 2.2 mmol/L [facility] Resp Auto SS 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 operator+ Art 140.0 mmol/L Normal 135.0 - 145.0 mmol/L [facility] Resp Auto SS Drawn by tmj Invalid Interpretation Code [facility] Resp Auto SS FCOHb Art 2.0 % Normal 1.5 - 4.9 % [facility] Resp Auto SS FIO2 BG 21 Invalid Interpretation Code [facility] Resp Auto SS FMetHb Art 0.9 % Normal 0.0 - 1.9 % [facility] Resp Auto SS FO2Hb Art 92.2 % Low 93.0 - 100.0 % [facility] Resp Auto SS HCO3 (Bld) [Moles/Vol] 25.8 mmol/L Normal 22.0 - 26.0 mmol/L [facility] Resp Auto SS Hemoglobin (Bld) [Mass/Vol] 10.7 g/dL Low 12.0 - 17.0 gm/dL [facility] Resp Auto SS P CO2 Arterial 45.9 mm[Hg] High 35.0 - 45.0 mmHg [facility] Resp Auto SS P O2 Arterial 74.6 mm[Hg] Low 80.0 - 100.0 mmHg FT Resp Auto SS pH Arterial 7.381 Normal 7.350 - 7.450 [facility] Resp Auto SS Sample Site R Radial (02/13/23 1:02 AM) Normal [facility] Resp Auto SS Sample Type Arterial Draw (02/13/23 1:02 AM) Normal [facility] Resp Auto SS HEMATOLOGYOrdered By: SYSTEM SYSTEM [...] 5.9 E9/L Normal 4.0 - 11.0 E9/L [facility] HemeAutoSS [facility] V[facility] Office/Cl in Noteon 02-13-2023 Heart and Vascular Office/Clinic Note Chief Complaint Inpatient F/U History of Present Illness Otilio Suarez is a 67-year-old male patient with past medical history positive for paroxysmal atrial fibrillation previously on Eliquis however taken off due to frequent falls, hypertension, hyperlipidemia, chronic diastolic heart failure, diabetes. He has dementia and resides at assisted living. He was recently seen at [facility] after syncopal events. He has had frequent episodes of syncope, unclear if cardiac in etiology or neuro. He follows with [facility] and is undergoing work-up. He has a baseline of bradycardia. During his last admission he underwent a dobutamine stress echo which was normal, adequate, and had excellent chronotropic competence for age. His EF is 60 to 65%. Here today for inpatient follow-up with his daughter. He is in the wheelchair and falls asleep intermittently during the visit. His daughter provides most of history. Patient denies any cardiac complaints. He has had no syncope since his last visit. Daughter tells me that he was wearing an event monitor from [facility] when he had most recent syncopal episode preceding hospitalization. We do not have records at time of exam. Review of Systems PHQ Score Initial Depression Screen Score: 0 Constitutional: no fever, no chills, no weakness, no fatigue Respiratory: no shortness of breath, no cough, no orthopnea, no wheezing Cardiovascular: no chest pain, no palpitations, no edema Neuro:no dizziness no light headed no syncope Additional ROS info: Except as noted in the above Review of Systems and in the History of Present Illness all other systems have been reviewed and are negative or noncontributory. Physical Exam Vitals & Measurements HR: 73(Peripheral) BP: 113/65 SpO2: 97% HT: 71 in HT: 180 cm General: alert, no acute distress Neck: Supple, noJVD nocarotid bruit Cardiovascular: regular rate and rhythm, no murmur normal peripheral perfusion Respiratory: Lungs CTA, respirations non labored Extremities:no edema Neurological: oriented x 4, LOC appropriate for age, sensation equal & normal bilaterally, speech normal Skin: Warm, dry, intact- no rash or concerning lesions Assessment/Plan 1. Syncope (R55: Syncope and collapse) No further episodes since most recent hospitalization. He has baseline bradycardia, however, had dobutamine stress echo with excellent chronotropic response. Will obtain recent event monitor from [facility]. Will change furosemide from daily dosing to as needed basis. Will add compression stockings knee-high placed in morning remove at bedtime. 2. Diastolic heart failure (I50.30: Unspecified diastolic (congestive) heart failure) Patient appears well compensated at this time. Will change Lasix to as needed basis. 3. A-fib (I48.91: Unspecified atrial fibrillation) Dr. Lema had recently changed medications to include short acting diltiazem twice daily. His blood pressure and pulse have been stable. Await results of event monitor for further management. Anticoagulation is contraindicated given high risk for falls. 4. Hypertension (I10: Essential (primary) hypertension) Blood pressure is stable/somewhat on low end of normal. Discontinuing diuretic. Adequate oral hydration with water versus coffee/soda. Compression stockings for possible orthostasis. Follow-up With When Contact Information Jaja Lee MD In 1 month [address] [place] [address]- Additional Instructions: [facility] office Problem List/Past Medical History Ongoing A-fib CAD in [place] artery Chronic anemia Chronic GERD Dementia Diabetes Diastolic heart failure Hyperlipidemia Hypertension Obesity Peripheral neuropathy Seizure Type 2 diabetes mellitus Historical No qualifying data Medications acetaminophen 325 mg Tab, 650 mg= 2 tab(s), Oral, q6hr, PRN acetaminophen 325 mg Tab, 650 mg= 2 tab(s), Oral, q6hr, PRN aspirin 81 mg Oral EC Tab, 81 mg= 1 tab(s), Oral, Daily aspirin 81 mg Oral EC Tab, 81 mg= 1 tab(s), Oral, Daily cholecalciferol 1000 intl units (25 mcg) oral tablet, 25 mcg= 1 tab(s), Oral, Daily cholecalciferol 1000 intl units (25 mcg) oral tablet, 25 mcg= 1 tab(s), Oral, Daily clopidogrel 75 mg Tab, 75 mg= 1 tab(s), Oral, Daily donepezil 5 mg Tab, 5 mg= 1 tab(s), Oral, Once a day (at bedtime) furosemide 20 mg Tab, 20 mg= 1 tab(s), Oral, Daily, PRN heparin 5000 units/mL Inj, 5000 unit(s)= 1 mL, SubCutaneous, BID hydrALAZINE 20 mg/mL Inj, 10 mg= 0.5 mL, IV Push, q6hr, PRN levetiracetam 500 mg Tab, 750 mg= 1.5 tab(s), Oral, BID levETIRAcetam 750 mg oral tablet, dispersible, 750 mg= 1 tab(s), Oral, BID loratadine 10 mg Tab, 10 mg= 1 tab(s), Oral, Daily, PRN loratadine 10 mg Tab, 10 mg= 1 tab(s), Oral, Daily, PRN magnesium oxide 400 mg Tab, 400 mg= 1 tab(s), Oral, Daily magnesium oxide 400 mg Tab, 400 mg= 1 tab(s), Oral, Daily metformin 1000 mg oral tablet, extended release, 1000 mg= 1 tab(s), Oral, BID metfor (more content not included)... Normal [facility] Comment on above: Result Comment: Elec tronically Signed By: Bushra JIMENEZ CNP\.francie\Date and Time Signed: 02/13/23 15:11 EDT Hep Func Panelon 02-13-2023 Albumin [Mass/Vol] 3.7 g/dL Normal 3.3-5.0 [facility] Comment on above: Performed By: #### 1 [id number], 5254504, 4895355, 31627260, 4873654, 0464837, 80261279, 6319226 #### [facility] [address] [place] [address] Albumin/Globulin (S) [Mass conc ratio] 1.2 Normal 1.1-2.2 [facility] Comment on above: Performed By: #### 1 6468833, 7951001, 7131605, 38122010, 2708850, 6243870, 32045686, 0689237 #### [facility] [address] [place] [address] ALP [Catalytic activity/Vol] 63 Int._Unit/L Normal 21-98 [facility] Comment on above: Performed By: #### 1 5412154, 6636193, 3199375, 70323442, 6984162, 1232267, 31694077, 2311683 #### [facility] [address] [place] [address] ALT No additional P-5'-P [Catalytic activity/Vol] 10 Int._Unit/L Normal 6-46 [facility] Comment on above: Performed By: #### 1 7182236, 4140802, 8830506, 47516663, 7084981, 6871453, 47474049, 8410146 #### [facility] [address] [place] [address] AST [Catalytic activity/Vol] 13 Int._Unit/L Normal 5-43 [facility] Comment on above: Performed By: #### 1 3586931, 1696843, 3186461, 55905185, 1553060, 9879836, 32827161, 1811669 #### [facility] [address] [place] [address] Bilirubin [Mass/Vol] 0.6 mg/dL Normal 0.0-1.1 [facility] Comment on above: Performed By: #### 1 5091135, 4428919, 9672919, 95684360, 1724929, 7379324, 05243768, 5187301 #### [facility] [address] [place] [address] Bilirubin.direct [Mass/Vol] 0.1 mg/dL Normal 0.1-0.4 [facility] Comment on above: Performed By: #### 1 0049649, 7641963, 2078341, 47780392, 5845114, 0531844, 14292942, 7507341 #### [facility] [address] [place] [address] Bilirubin.indirect [Mass or moles/Vol] 0.5 mg/dL Normal 0.1-0.9 [facility] Comment on above: Performed By: #### 1 9974693, 4584973, 8182784, 77724892, 7759819, 0374917, 31997121, 8242862 #### [facility] [address] [place] [address] Globulin (S) [Mass/Vol] 3.0 g/dL Normal 1.4-4.0 [facility] Comment on above: Performed By: #### 1 0767416, 3290073, 4056726, 47030553, 4622108, 3374987, 21622382, 7149286 #### [facility] [address] [place] [address] Protein [Mass/Vol] 6.7 g/dL Normal 6.0-7.8 [facility] Comment on above: Performed By: #### 1 9571968, 3878162, 2164659, 73737060, 5241287, 5638307, 64289875, 8382222 #### [facility] [address] [place] [address] Inpatient Clinical Summaryon 02-13-2023 Inpatient Clinical Summary [address] [address] Clinical Summary Person Information: Name: OTILIO SUAREZ Age: 67 Years : 1955 Sex: Male PCP: HERMILO THORNE MD Marital Status: Race: White Ethnicity: Non- or Language: Ivorian Visit Id: Visit Reason: Altered mental status; Seizure; UNRESPONSIVE Speciality: Acuity: Enc Type: Observation Med Service: Medical Arrival: 02/13/2023 00:22:10 Discharge: Dispo Type: Admitted as IP to this Hosp Address: [address] [place] [id number] Provider Notes: Diagnosis: 1:Unresponsive episode Problems Active Chronic anemia Chronic GERD Hypertension Hyperlipidemia Seizure A-fib Dementia CAD in [place] artery Diastolic heart failure Type 2 diabetes mellitus Peripheral neuropathy Obesity Smoking Status: Former Smoker Functional Status: Sensory Deficits: History of Falls: Mobility Assistance Prior to Admission: ADLs: Current Level of Assistance for Self-Care/Mobility: Cognitive Status: Not oriented to person, Not oriented to place, Not oriented to time Allergies morphine (Anaphylactic reaction) (Unknown) Dilaudid (Anaphylactic reaction) (Unknown) penicillin (Unknown) (Anaphylactic reaction) Measurements: Height: 185 cm Weight: 94.3 kg Blood Pressure: 123 mmHg / 75 mmHg BMI: 27.55 kg/m2 Procedures No Procedures Documented Immunizations No Immunizations Documented This Visit Final Med List: acetaminophen (acetaminophen 325 mg Tab) 2 Tablets By Mouth every 6 hours as needed Pain. aspirin (aspirin 81 mg Oral EC Tab) 1 Tablets By Mouth every day. Refills: 0. cholecalciferol (cholecalciferol 1000 intl units (25 mcg) oral tablet) 1 Tablets By Mouth every day. Refills: 0. clopidogrel (clopidogrel 75 mg Tab) 1 Tablets By Mouth every day. diltiazem (Cardizem 60 mg Tab) 0.5 Tablets By Mouth 2 times a day. Refills: 0. donepezil (Aricept 10 mg Tab) 1 Tablets By Mouth once a day (at bedtime). donepezil (donepezil 5 mg Tab) 1 Tablets By Mouth once a day (at bedtime). dulaglutide (Trulicity Pen 0.75 mg/0.5 mL subcutaneous solution) 0.75 Milligram Subcutaneous Thursday. furosemide (furosemide 20 mg Tab) 1 Tablets By Mouth every day as needed Edema. levetiracetam (levETIRAcetam 750 mg oral tablet, dispersible) 1 Tablets By Mouth 2 times a day. loratadine (loratadine 10 mg Tab) 1 Tablets By Mouth every day as needed Itching. magnesium oxide (magnesium oxide 400 mg Tab) 1 Tablets By Mouth every day. Refills: 0. metformin (metformin 1000 mg oral tablet, extended release) 1 Tablets By Mouth 2 times a day. Refills: 0. omeprazole (omeprazole 20 mg Cap-DR) 1 Capsules By Mouth every day. pravastatin (pravastatin 40 mg Tab) 1 Tablets By Mouth once a day (at bedtime). Care Team Members: Attending Physician: Isaías FLEMING DO Consulting Physician: Mahesh Lema MD Referring Physician: Follow up: With: Address: When: HERMILO THORNE MD [address] [place] [address] Within 2 to 4 days Type Location Start [facility] Cardiology Follow Up ([facility]) [facility] 03/26/2023 10:15 AM 03/26/2023 10:30 AM Confirmed Patient Education Information: Normal [facility] Inpatient Patient Summaryon 02-13-2023 Inpatient Patient Summary [address] [address] Patient Discharge Instructions PERSON INFORMATION Name: OTILIO SUAREZ Date of : 1955 Current Date: 02/13/2023 10:45:03 PHYSICIANS Admitting Physician: Isaías FLEMING DO Primary Care Physician: HERMILO THORNE MD PCP Comment: Discharge Diagnosis: 1:Unresponsive episode Condition at Discharge: Stable OTILIO SUAREZ has been given the following list of follow-up instructions, prescriptions, and patient education materials: PATIENT FOLLOW-UP INFORMATION Diet: Calorie Controlled- 1800 Calorie Diet Discharge Activity: Resume normal activities in 24 hours Discharge Restrictions: Wound Care Instructions: Remove Your Dressing In Days Call Your Doctor For: IF UNABLE TO CONTACT YOUR PHYSICIAN AND YOU FEEL IT IS AN EMERGENCY, GO TO THE NEAREST EMERGENCY ROOM OR CALL 911 Home Treatment: Devices/Equipment: Special Services: Additional Instructions: Primary Care Physician to provide the following pending test results: None Follow up: With: Address: When: MATI LEMONS, HERMILO [address] [place] [address] [place] [address] Within 2 to 4 days In the event that this physician does not participate in your insurance network, please consult with your insurance company to find a nearby participating provider. Type Location Start [facility] Cardiology Follow Up ([facility]) [facility] 03/26/2023 10:15 AM 03/26/2023 10:30 AM Confirmed Comment: DANIELA Huddleston JERRY, have received the attached patient education materials/instructions and have verbalized understanding: Patient Signature Date Clinican/Nurse Signature ___ Date HERE ARE THE MEDICATION CHANGES THAT OCCURRED DURING YOUR HOSPITAL STAY Medications to Continue with No Changes Other Medications acetaminophen (acetaminophen 325 mg Tab) 2 Tablets By Mouth every 6 hours as needed Pain. Last Dose: ___Next Dose: ___ aspirin (aspirin 81 mg Oral EC Tab) 1 Tablets By Mouth every day. Refills: 0. Last Dose: ___Next Dose: ___ cholecalciferol (cholecalciferol 1000 intl units (25 mcg) oral tablet) 1 Tablets By Mouth every day. Refills: 0. Last Dose: ___Next Dose: ___ clopidogrel (clopidogrel 75 mg Tab) 1 Tablets By Mouth every day. Last Dose: ___Next Dose: ___ diltiazem (Cardizem 60 mg Tab) 0.5 Tablets By Mouth 2 times a day. Refills: 0. Last Dose: ___Next Dose: ___ donepezil (Aricept 10 mg Tab) 1 Tablets By Mouth once a day (at bedtime)., start date 03/11/23 Last Dose: ___Next Dose: ___ donepezil (donepezil 5 mg Tab) 1 Tablets By Mouth once a day (at bedtime)., stop date 03/10/23 Last Dose: ___Next Dose: ___ dulaglutide (Trulicity Pen 0.75 mg/0.5 mL subcutaneous solution) 0.75 Milligram Subcutaneous Thursday. Last Dose: ___Next Dose: ___ furosemide (furosemide 20 mg Tab) 1 Tablets By Mouth every day as needed Edema., PRN 2-3 weight gain in 1 day or 5 lb in 1 week Last Dose: ___Next Dose: ___ levetiracetam (levETIRAcetam 750 mg oral tablet, dispersible) 1 Tablets By Mouth 2 times a day. Last Dose: ___Next Dose: ___ loratadine (loratadine 10 mg Tab) 1 Tablets By Mouth every day as needed Itching. Last Dose: ___Next Dose: ___ magnesium oxide (magnesium oxide 400 mg Tab) 1 Tablets By Mouth every day. Refills: 0. Last Dose: ___Next Dose: ___ metformin (metformin 1000 mg oral tablet, extended release) 1 Tablets By Mouth 2 times a day. Refills: 0. Last Dose: ___Next Dose: ___ omeprazole (omeprazole 20 mg Cap-DR) 1 Capsules By Mouth every day. Last Dose: ___Next Dose: ___ pravastatin (pravastatin 40 mg Tab) 1 Tablets By Mouth once a day (at bedtime). Last Dose: ___Next Dose: ___ Comment: MEDICATION LIST PROVIDED FOR YOU IS A LIST OF YOUR CURRENT MEDICATIONS. PLEASE CARRY THIS WITH YOU AT ALL TIMES. acetaminophen (acetaminophen 325 mg Tab) 2 Tablets By Mouth every 6 hours as needed Pain. aspirin (aspirin 81 mg Oral EC Tab) 1 Tablets By Mouth every day. Refills: 0. cholecalciferol (cholecalciferol 1000 intl units (25 mcg) oral tablet) 1 Tablets By Mouth every day. Refills: 0. clopidogrel (clopidogrel 75 mg Tab) 1 Tablets By Mouth every day. diltiazem (Cardizem 60 mg Tab) 0.5 Tablets By Mouth 2 times a day. Refills: 0. donepezil (Aricept 10 mg Tab) 1 Tablets By Mouth once a day (at be (more content not included)... Normal [facility] Interdisciplinary Note - Hortensia n 02-13-2023 Interdisciplinary Note - OT Ot six clicks score 15/24 = SNF. Pt [facility] at [facility]. Pt is having difficulty using LUE for functional tasks/transfers d/t pain. Patient also requires Min A w transfers w/ fww and verbal cues for transfer mechanics. Inpatient OT services to follow daily. Normal [facility] LEVETIRACETAM, SERUM OR PLAS MAon 02-13-2023 Levetiracetam, S 40.4 ug/mL Critically high 10.0-40.0 [facility] Comment on above: Performed By: #### [facility] ####[facility] [id number] [address]Dr. Areli Yousif Monitor Recordon 02-13-2023 Monitor Record [id number]. 00CD:127 Normal [facility] Monitor Record [id number]#1. 00CD:127 Normal [facility] Monitor Record [id number]. 00CD:127 Normal [facility] Penitentiary Recordson 02-13 Penitentiary Records [id number] 0CD:127 Normal [facility] PT & PTTon 02-13-2023 aPTT Coag (PPP) [Time] 31.8 second(s) Normal 25.1-36.5 [facility] Comment on above: Result Comment: Para meter [...] the same coagulation reagent and instrumentation as [facility]. Currently there are no coagulation studies available worldwide for children to 14 days, and no normal ranges. Heparin therapeutic range (represented by Anti-Factor Xa activity of 0.2 - 0.4 U/mL) corresponds to PTT of 56.6 - 109.0 sec. Performed By: #### 1 [id number], 2971563, 2681314, 45890748, 0940348, 5535210, 92038273, 4690624 #### [facility] [address] [place] [address] INR Coag (PPP) [Relative time] 1.1 {INR} Invalid Interpretation Code [facility] Comment on above: Result Comment: INR results are specifically intended to assess patients stabilized on long-term Anticoagulation therapy suggested INR?s ?Less Intensive Anticoagulation? 2.0 ? 3.0 Conventional Range 3.0 ? 4.5 Performed By: #### 1 [id number], 1098339, 4393613, 28946251, 0509875, 7665119, 72675703, 1919584 #### [facility] [address] [place] [address] PT Coag (PPP) [Time] 11.9 second(s) Normal 9.4-12.5 [facility] Comment on above: Result Comment: 15 d [...] were obtained from a study by Param Cole Camp, et al. prepared from 1437 samples obtained at 7 different centers using the same coagulation reagent and instrumentation as [facility]. Currently there are no coagulation studies available worldwide for children to 14 days, and no normal ranges. Performed By: #### 1 8541086, 6785285, 7326886, 59769867, 0170926, 8244951, 35460577, 0731032 #### [facility] [address] [place] [address] Patient Education - Texton 0 02-13-2023 Patient Education - Text Normal [facility] RAD - Preliminary Cat Scan R eporton 02-13-2023 RAD - Preliminary Cat Scan Report [id number] 0CD:127 Normal [facility] Reference Laboratory Testing Ordered By: Generated DomainUser on 02-13-2023 Cortisol [Mass/Vol] 22.4 ug/dL High 6.2-19.4 mcg/ dL [facility] Comment on above: Result Comment: Sandy denton Note: The reference interval and flagging for this test is for an AM collection. If this is a PM collection please use: Cortisol PM: 2.3-11.9 Performed at: [facility] [employer] [address] [id number] PhD Desmond Jimenez Cortisol [Mass/Vol] 18.8 ug/dL Invalid Interpretation Code 6.2-19.4mcg/ dL [facility] Comment on above: Result Comment: Sandy denton Note: The reference interval and flagging for this test is for an AM collection. If this is a PM collection please use: Cortisol PM: 2.3-11.9 Performed at: [facility] [employer] [address] [id number] PhD Desmond Jimenez Troponin 0 Hr.on 02-13-2023 Troponin I.cardiac [Mass/Vol] 5.80 pg/mL Low 15.90-38.40 [facility] Comment on above: Result Comment: The 95% CI (Confidence Interval) PPV (Positive Predictive Value) for myocardial infarction in females is 38 pg/mL, in males 51 pg/mL. The results should be used in conjunction with clinical conditions of myocardial infarction. (Access High Sensitivity Troponin I Instructions For Use, [employer], May 2018) Performed By: #### 1 [id number], [id number], [id number], [id number], 0772793, [id number], [id number], [id number] #### [facility] [address] [place] [address] Troponin 6 Hr.on 02-13-2023 Troponin I.cardiac [Mass/Vol] 6.60 pg/mL Low 15.90-38.40 [facility] Comment on above: Result Comment: The 95% CI (Confidence Interval) PPV (Positive Predictive Value) for myocardial infarction in females is 38 pg/mL, in males 51 pg/mL. The results should be used in conjunction with clinical conditions of myocardial infarction. (Access High Sensitivity Troponin I Instructions For Use, [employer], May 2018) Performed By: #### 1 [id number], 1033845, 2478360, [id number], 8857997, 4354660, [id number], [id number] #### [facility] [address] [place] [address] U Drug Screenon 02-13-2023 Amphetamines Screen method >1000 ng/mL Ql (U) Negative Normal Negative [facility] Comment on above: Result Comment: Nega tive Cutoff: <1000 ng/mL Performed By: #### 4 [id number] #### [facility] [address] [place] [address] Barbiturates Screen Ql (U) Negative Normal Negative [facility] Comment on above: Result Comment: Nega tive Cutoff: <200 ng/mL Performed By: #### 4 [id number] #### [facility] [address] [place] [address] Benzodiazepines Ql (U) Negative Normal Negative [facility] Comment on above: Result Comment: Nega tive Cutoff: <200 ng/mL Performed By: #### 4 [id number] #### [facility] [address] [place] [address] Cocaine Ql (U) Negative Normal Negative [facility] Comment on above: Result Comment: Nega tive Cutoff: <300 ng/mL Performed By: #### 4 [id number] #### [facility] [address] [place] [address] Opiates Screen Ql (U) Negative Normal Negative [facility] Comment on above: Result Comment: Nega tive Cutoff: <300 ng/mL Performed By: #### 4 [id number] #### [facility] [address] [place] [address] Phencyclidine Screen method >25 ng/mL Ql (U) Negative Normal Negative [facility] Comment on above: Result Comment: Nega tive Cutoff: <25 ng/mL These drug screen results are to be used for medical (i.e., treatment) purposes only. Unconfirmed drug screening results must not be used for non-medical purposes (e.g., employment testing, legal testing). Performed By: #### 4 [id number] #### [facility] [address] [place] [address] Tetrahydrocannabinol Screen method >50 ng/mL Ql (U) Negative Normal Negative [facility] Comment on above: Result Comment: Nega tive Cutoff: <50 ng/mL Performed By: #### 4 [id number] #### [facility] [address] [place] [address] UA With Cult Reflexon 2022 Bacteria LM Ql (Urine sed) TRACE Normal Trace [facility] Comment on above: Performed By: #### 1 [id number] ####[facility] [address] [place] [address] Bilirubin Ql (U) Negative Normal Negative [facility] Comment on above: Performed By: #### 1 [id number] ####[facility] [address] [place] [address] Clarity (U) CLEAR Normal Clear [facility] Comment on above: Performed By: #### 1 [id number] ####[facility] [address] [place] [address] Color (U) YELLOW Normal Yellow [facility] Comment on above: Performed By: #### 1 [id number] ####[facility] [address] [place] [address] Epithelial cells.squamous LM.HPF (Urine sed) [#/Area] 0-2 Normal 0-2 [facility] Comment on above: Performed By: #### 1 [id number] ####[facility] [address] [place] [address] Glucose Test strip (U) [Mass/Vol] Negative Normal Negative [facility] Comment on above: Performed By: #### 1 [id number] ####[address] [place] [address] Hemoglobin Ql (U) Negative Normal Negative [facility] Comment on above: Performed By: #### 1 [id number] ####[address] [address] Ketones (U) [Mass/Vol] Negative Normal Negative [facility] Comment on above: Performed By: #### 1 [id number] ####[address] [address] [place].plasma/[place] .RBC (Bld) [Mass ratio] 0-3 Normal 0-3 [facility] Comment on above: Performed By: #### 1 [id number] ####[address] [address] Nitrite Ql (U) Negative Normal Negative [facility] Comment on above: Performed By: #### 1 [id number] ####[address] [address] pH (U) 6.0 [pH] Invalid Interpretation Code 5.0-9.0 [facility] Comment on above: Performed By: #### 1 [id number] ####[address] [address] Protein (U) [Mass/Vol] TRACE Abnormal Negative [facility] Comment on above: Performed By: #### 1 [id number] ####[address] [address] Specific gravity (U) [Rel density] 1.010 Invalid Interpretation Code 1.005-1.030 [facility] Comment on above: Performed By: #### 1 [id number] ####[facility] [address] [place] [address] Type of Urine collection method Catheter Normal [facility] Comment on above: Performed By: #### 1 [id number] ####[facility] [address] [place] [id number] Urobilinogen Qn (U) 0.2 {Alyssia'U}/dL Normal 0.0-1.0 [facility] Comment on above: Performed By: #### 1 [id number] ####[facility] [address] [place] [address] WBC Auto Ql (U) Negative Normal Negative [facility] Comment on above: Performed By: #### 1 [id number] ####[facility] [address] [place] [address] WBC LM.HPF (Urine sed) [#/Area] 0-5 Normal 0-5 [facility] Comment on above: Performed By: #### 1 [id number] ####[place] [address] URINALYSISOrdered By: Gilmer Coronado on 02-13-2023 Bacteria LM Ql (Urine sed) Trace /HPF Normal Trace/HPF [facility] UA Auto SS Bilirubin Ql (U) Negative (02/13/23 3:34 AM) Normal Negative [facility] UA Auto SS Clarity (U) Clear (02/13/23 3:34 AM) Normal Clear [facility] UA Auto SS Color (U) Yellow (02/13/23 [...] AM) Normal Negative [facility] UA Auto SS [place].plasma/[place] .RBC (Bld) [Mass ratio] 0-3 /HPF Normal 0-3/HPF [facility] UA Auto SS Nitrite Ql (U) Negative (02/13/23 3:34 AM) Normal Negative [facility] UA Auto SS pH (U) 6.0 *NA* (02/13/23 3:34 AM) Invalid Interpretation Code 5.0 - 9.0 [facility] UA Auto SS Protein (U) [Mass/Vol] Trace *ABN* (02/13/23 3:34 AM) Invalid Interpretation Code Negative [facility] UA Auto SS Specific gravity (U) [Rel density] 1.010 *NA* (02/13/23 3:34 AM) Invalid Interpretation Code 1.005 - 1.030 [facility] UA Auto SS UA Spec Desc Catheter (02/13/23 3:34 AM) Normal [facility] UA Auto SS Urobilinogen Qn (U) 0.2243195 {Alyssia'U}/dL Normal 0.0 - 1.0 EU/dL [facility] UA Auto SS WBC Auto Ql (U) Negative (02/13/23 3:34 AM) Normal Negative [facility] UA Auto SS WBC LM.HPF (Urine sed) [#/Area] 0-5 /HPF Normal 0-5/HPF [facility] UA Auto SS XR Chest Single Viewon 02-13 XR Chest Single View Exam Date/Time: 02/13/2023 01:34 EDT Reason for Exam: Altered Mental Status;Other (please specify) Report IMPRESSION: NO EVIDENCE OF ACTIVE CHEST DISEASE. CLINICAL HISTORY: Altered Mental Status. COMPARISON: 01/22/2023. COMMENT: AP view portable. The heart is upper limits of normal in size. The mediastinum is unremarkable. No consolidated airspace opacification nor pleural effusion is evident. There are chronic bony findings, including old healed right rib fractures and arthritic changes at both shoulders. No significant change is noted when compared to the prior exam. Ordering Provider: Jalen Danielle FINAL REPORT Dictated: 02/13/2023 8:28 am Harjit Bhardwaj M.D. Signed (Electronic Signature): 02/13/2023 8:28 am Signed by: Harjit Bhardwaj M.D. Transcribed by: TREVIN Technologist: RAHEL Technical Comments Radiation Dose: Ka,r in mGy = na DAP = na Normal [facility] eGFRon 02-13-2023 GFR/1.73 sq M.predicted among non-blacks MDRD (S/P/Bld) [Vol rate/Area] 65 mL/min/1.73 m2 Normal >=59 [facility] Comment on above: Order Comment: Order added by Discern Expert. Result Comment: Food And Nutrition Supervisor lokesh kidney disease could be indicated at eGFR's of less than 60 mL/min/1.73m2. Kidney failure is indicated at less than 15 mL/min/1.73m2. Performed By: #### 1 [id number], [id number], 0226407, [id number], 9530208, 4214832, [id number], [id number] #### [facility] [address] [place] [address] CBC AUTO DIFFon 02-11-2023 BASO # 0.0 103/ul Normal 0.0-0.1 [facility] Comment on above: Performed By: #### C BC ####[facility] [address] [place] [address]Dr. Areli Yousif Basophils/100 WBC (Bld) 0.7 % Normal 0.2-2.0 [facility] Comment on above: Performed By: #### C BC ####[facility] [address] [place] [address]Dr. Areli Benja EO # 0.6 103/ul Normal 0.0-0.7 [facility] Comment on above: Performed By: #### C BC ####[facility] [address] [place] [address]Dr. Areli Benja Eosinophils/100 WBC (Bld) 9.1 % Critically high 0.9-7.0 [facility] Comment on above: Performed By: #### C BC ####[facility] [address] [place] [address]Dr. Areli Benja Erythrocyte distribution width (RBC) [Ratio] 13.2 % Normal 11.0-15.0 [facility] Comment on above: Performed By: #### C BC ####[facility] [address] [place] [address]Dr. Areli Yousif Hematocrit (Bld) [Volume fraction] 35.7 % Critically low 42.0-54.0 [facility] Comment on above: Performed By: #### C BC ####[facility] [address] [place] [address]Dr. Areli Yousif Hemoglobin (Bld) [Mass/Vol] 11.4 g/dL Critically low 14.0-18.0 [facility] Comment on above: Performed By: #### C BC ####[facility] [address] [place], [place] [address]Dr. Areli Yousif IG # 0.02 10e3/ul Normal 0.00-0.03 [facility] Comment on above: Performed By: #### C BC ####[facility] [address] [place], [place] [address]Dr. Tabbytulio Yousif IG % 0.3 % Normal 0.0-0.5 [facility] Comment on above: Performed By: #### C BC ####[facility] [address] [place], [place] [address]Dr. Areli Benja LYMPH # 2.0 103/ul Normal 1.2-3.8 [facility] Comment on above: Performed By: #### C BC ####[facility] [address] [place], [place] [address]DrDenae Tabbytulio Yousif Lymphocytes/100 WBC (Bld) 33.8 % Normal 20.5-60.0 [facility] Comment on above: Performed By: #### C BC ####[facility] [address]ecx[address] [place], [place] [address]Dr. Tabbytulio Yousif MANUAL DIFF REQ NO Normal [facility] Comment on above: Performed By: #### C BC ####[facility] [address] [place], [place] [address]DrDenae Tabbytulio Yousif MCH (RBC) [Entitic mass] 28.5 pg Normal 25.9-34.0 [facility] Comment on above: Performed By: #### C BC ####[facility] [address] [place] [address]Dr. Areli Benja MCHC (RBC) [Mass/Vol] 31.9 g/dL Normal 29.9-35.2 [facility] Comment on above: Performed By: #### C BC ####[facility] [address] [place] [address]Dr. Areli Yousif MCV (RBC) [Entitic vol] 89.3 fL Normal 80.0-94.0 [facility] Comment on above: Performed By: #### C BC ####[facility] [address] [place], [place] [address]Dr. Areli Yousif MONO # 0.4 103/ul Normal 0.3-0.8 [facility] Comment on above: Performed By: #### C BC ####[facility] [address] [place], [place] [address]Dr. Areli Yousif Monocytes/100 WBC (Bld) 6.6 % Normal 1.7-12.0 [facility] Comment on above: Performed By: #### C BC ####[facility] [address] [place], [place] [address]Dr. Areli Yousif NEUT # 3.0 103/ul Normal 1.4-6.5 [facility] Comment on above: Performed By: #### C BC ####[facility] [address] [place], [place] [address]Dr. Areli Yousif Neutrophils/100 WBC (Bld) 49.5 % Normal 43.0-75.0 [facility] Comment on above: Performed By: #### C BC ####[facility] [address] [place], [place] [address]Dr. Areli Yousif Platelet mean volume (Bld) [Entitic vol] 11.2 fL Normal 9.5-13.5 [facility] Comment on above: Performed By: #### C BC ####[facility] [address] [place], [place] [address]Dr. Areli Yousif PLT 244 103/ul Normal 150-450 [facility] Comment on above: Performed By: #### C BC ####[facility] [address] [place] [address]Dr. Areli Yousif RBC 4.00 106/ul Critically low 4.70-6.10 [facility] Comment on above: Performed By: #### C BC ####[facility] [address] [place] [address]Dr. Tabbytulio Benja WBC 6.0 103/ul Normal 4.0-11.0 [facility] Comment on above: Performed By: #### C BC ####[facility] [address] [place] [address]Dr. Areli Yousif Consent for Treatmenton 02-02 Consent for Treatment [id number]#1.0 0CD:127 Normal [facility] Outside Cardiovascularon Outside Cardiovascular [id number]#1.0 0CD:127 Normal [facility] Outside Cardiovascular [id number] [id number] 0CD:127 Normal [facility] PROF 14(COMP METB)on 023 Albumin [Mass/Vol] 3.2 g/dL Critically low 3.4-5.0 [facility] Comment on above: Performed By: #### C MP ####[facility] [address] [place] [address]Dr. Areli Yousif Albumin/Globulin [Mass ratio] 0.9 {ratio} Normal [facility] Comment on above: Performed By: #### C MP ####[facility] [address] [place] [address]Dr. Tabbytulio Benja ALP [Catalytic activity/Vol] 77 U/L Normal 46-116 [facility] Comment on above: Performed By: #### C MP ####[facility] [address] [place] [address]Dr. Areli Yousif ALT [Catalytic activity/Vol] 14 U/L Critically low 16-63 [facility] Comment on above: Performed By: #### C MP ####[facility] [address] [place] [address]Dr. Areli Yousif Anion gap [Moles/Vol] 12.1 mmol/L Normal [facility] Comment on above: Performed By: #### C MP ####[facility] [address] [place] [address]Dr. Areli Yousif AST [Catalytic activity/Vol] 8 U/L Critically low 15-37 [facility] Comment on above: Performed By: #### C MP ####[facility] [address] [place], [place] [address]Dr. Areli Yousif Bilirubin [Mass/Vol] 0.3 mg/dL Normal 0.2-1.0 [facility] Comment on above: Performed By: #### C MP ####[facility] [address] [place], [place] [address]Dr. Areli Yousif Calcium [Mass/Vol] 9.1 mg/dL Normal 8.5-10.1 [facility] Comment on above: Performed By: #### C MP ####[facility] [address] [place], [place] [address]Dr. Areli Yousif Chloride [Moles/Vol] 106 mmol/L Normal 98-107 [facility] Comment on above: Performed By: #### C MP ####[facility] [address]xf[address] [place], [place] [address]Dr. Areli Yousif CO2 [Moles/Vol] 28.9 mmol/L Normal 21.0-32.0 [facility] Comment on above: Performed By: #### C MP ####[facility] X[address] [place], [place] [address]Dr. Areli Yousif Creatinine [Mass/Vol] 1.20 mg/dL Normal 0.70-1.30 [facility] Comment on above: Performed By: #### C MP ####[facility] [address] [place], [place] [address]Dr. Areli Benja EGFR-AF CZECH >60 Normal >=60 [facility] Comment on above: Performed By: #### C MP ####[facility] [address] [place] [address]Dr. Areli Yousif EGFR-NON AF CZECH =60 Normal >=60 [facility] Comment on above: Performed By: #### C MP ####[facility] [address] [place] [address]Dr. Areli Yousif Globulin (S) [Mass/Vol] 3.6 g/dL Normal [facility] Comment on above: Performed By: #### C MP ####[facility] [address] [place] [address]Dr. Areli Yousif Glucose [Mass/Vol] 120 mg/dL Critically high 74-106 T [facility] Comment on above: Performed By: #### C MP ####[facility] [address] [place] [address]Dr. Areli Yousif Potassium [Moles/Vol] 4.0 mmol/L Normal 3.5-5.1 [facility] Comment on above: Performed By: #### C MP ####[facility] [address] [place] [address]Dr. Areli Yousif Protein [Mass/Vol] 6.8 g/dL Normal 6.4-8.2 [facility] Comment on above: Performed By: #### C MP ####[facility] [address] [place] [address]Dr. Areli Yousif Sodium [Moles/Vol] 143 mmol/L Normal 136-145 [facility] Comment on above: Performed By: #### C MP ####[facility] [address] [place] [address]Dr. Areli Yousif Urea nitrogen [Mass/Vol] 33.0 mg/dL Critically high 7.0-18.0 [facility] Comment on above: Performed By: #### C MP ####[facility] [address] [place] [address]Dr. Areli Yousif Urea nitrogen/Creatinine [Mass ratio] 27.5 mg/mg Normal [facility] Comment on above: Performed By: #### C MP ####[facility] [address] [place], [place] [address]Rr. Areli Yousif Physician Orderon 02-11-2023 Physician Order [id number]#1. 00CD:127 Normal [facility] Progress Note-Physicianon Progress Note-Physician [id number]#1. 00CD:127 Normal [facility] CHEMISTRYOrdered By: Arpita OREILLY User on 01-26-2023 Glucose [Mass/Vol] 156 mg/dL High 55 - 99 mg/dL [facility] POC Subsection Comment on above: Result Comment: Alida renetta Meter POC Device SN [id number] Invalid Interpretation Code FT POC Subsection POC User ID [id number] Invalid Interpretation Code FT POC Subsection POC Username JOSE RAFAEL PAGE Invalid Interpretation Code FT POC Subsection Glucose [Mass/Vol] 140 mg/dL High 55 - 99 mg/dL [facility] POC Subsection Comment on above: Result Comment: Alida renetta Meter POC Device SN [id number] Invalid Interpretation Code [facility] POC Subsection POC User ID [id number] Invalid Interpretation Code FT POC Subsection POC Username JOSE RAFAEL PAGE Invalid Interpretation Code [facility] POC Subsection CHEMISTRYOrdered By: Arpita OREILLY User on 01-25-2023 Glucose [Mass/Vol] 208 mg/dL High 55 - 99 mg/dL [facility] POC Subsection Comment on above: Result Comment: Clemente christopher RN/ POC Device SN [id number] Invalid Interpretation Code FT POC Subsection POC User ID [id number] Invalid Interpretation Code [facility] POC Subsection POC Username RICKY SHIN Invalid Interpretation Code [facility] POC Subsection CHEMISTRYOrdered By: SYSTEM SYSTEM on 01-24-2023 Anion gap [Moles/Vol] 10 mmol/L Normal 6 - 16 mEq/L F [facility] Remisol Calcium [Mass/Vol] 8.7 mg/dL Low 8.9 - 11. 1 mg/dL [facility] Remisol Chloride [Moles/Vol] 106 mmol/L Normal 101 [...] .73 m2 FT Chem S Glucose [Mass/Vol] 163 mg/dL Normal 55 - 199 mg/dL [facility] Remisol Magnesium [Mass/Vol] 1.5 mg/dL Normal 1.3 - 2 .4 mg/dL [facility] Remisol Phosphate [Mass/Vol] 3.8 mg/dL Normal 1.9 - 4 .6 mg/dL [facility] Remisol Potassium [Moles/Vol] 3.9 mmol/L Normal 3.5 - 5.3 mmol/L [facility] Remisol Sodium [Moles/Vol] 140 mmol/L Normal 135 - 145 mmol/L [facility] Remisol Urea nitrogen [Mass/Vol] 24 mg/dL High 5 - 21 mg/dL [facility] Remisol Urea nitrogen/Creatinine [Mass ratio] 24 mg/mg High 10 - 20 [facility]isol HEMATOLOGYOrdered By: SYSTEM SYSTEM on 01-24-2023 Basophils/100 [...] Normal 4.0 - 11.0 E9/L [facility] HemeAutoSS CHEMISTRYOrdered By: SYSTEM SYSTEM on 01-22-2023 25-hydroxyvitamin D3 [Mass/Vol] 22.0 ng/mL Low 30.0 - 100.0 ng/mL [facility] Remisol Troponin I.cardiac [Mass/Vol] 5.70 pg/mL Low 15.90 - 38.40 pg/mL FT Remisol Troponin I.cardiac [Mass/Vol] 7.20 pg/mL Low 15.90 - 38.40 pg/mL [facility] Remisol Troponin I.cardiac [Mass/Vol] 7.60 pg/mL Low 15.90 - 38.40 pg/mL [facility] Anion gap [Moles/Vol] 13 mmol/L Normal 6 - 16 mEq/L F [facility] Remisol Calcium [Mass/Vol] 8.6 mg/dL Low 8.9 - 11. 1 mg/dL [facility] Chloride [Moles/Vol] 105 mmol/L Normal 101 - 1 11 mmol/L [facility] CO2 [Moles/Vol] 24 mmol/L Normal 21 - 31 mmol/L [facility] Creatinine [Mass/Vol] 1.2 mg/dL Normal 0.5 - 1.3 mg/dL [facility] Remisol GFR/1.73 sq M.predicted among blacks MDRD (S/P/Bld) [Vol rate/Area] mL/min/1.73 m2 Normal >=59mL/min/1 .73 m2 [facility] Chem S GFR/1.73 sq M.predicted among non-blacks MDRD (S/P/Bld) [Vol rate/Area] 60 mL/min/1.73 m2 Normal >=59mL/min/1 .73 m2 [facility] Chem S Glucose [Mass/Vol] 227 mg/dL High 55 - 199 mg/dL [facility] Rem[facility] Potassium [Moles/Vol] 4.0 mmol/L Normal 3.5 - 5.3 mmol/L [facility] Sodium [Moles/Vol] 138 mmol/L Normal 135 - 145 mmol/L [facility] Urea nitrogen [Mass/Vol] 25 mg/dL High 5 - 21 mg/dL [facility] Urea nitrogen/Creatinine [Mass ratio] 21 mg/mg High 10 - 20 [facility] Remisol COAGULATIONOrdered By: Nusrat Aquino on 01-22-2023 aPTT Coag (PPP) [Time] 31.4 s Normal 25.1 - 36.5 second(s) [facility] Auto Coag INR Coag (PPP) [Relative time] 1.1 {INR} Invalid Interpretation Code [facility] Auto Coag PT Coag (PPP) [Time] 11.8 s Normal 9.4 - 1 2.5 second(s) [facility] Auto Coag HEMATOLOGYOrdered By: SYSTEM SYSTEM on 01-22-2023 Basophils/100 [...] 32.4 g/dL Normal 31.4 - 36.0 gm/dL [facility] HemeAutoSS MCV (RBC) [Entitic vol] 87.1 fL Normal 80.0 - 100.0 fL [facility] HemeAutoSS Platelet mean volume (Bld) [Entitic vol] 9.4 fL Normal 6.4 - 10.8 fL [facility] HemeAutoSS Platelets (Bld) [#/Vol] 215.0 E9/L Normal 150.0 - 500.0 E9/L [facility] HemeAutoSS RBC (Bld) [#/Vol] 3.9 E12/L Low 4.3 - 5.9 E12/L [facility] HemeAutoSS WBC corrected for nucl RBC Auto (Bld) [#/Vol] 6.1 E9/L Normal 4.0 - 11.0 E9/L [facility] HemeAutoSS US CAROTID ART BILon 023 US CAROTID ART MATTHIAS Normal [facility] CBC AUTO DIFFon 01-15-2023 BASO # 0.0 103/ul Normal 0.0-0.1 [facility] Comment on above: Performed By: #### C BC ####[facility] [address] [place] [address]Dr. Areli Yousif Basophils/100 WBC (Bld) 0.5 % Normal 0.2-2.0 [facility] Comment on above: Performed By: #### C BC ####[facility] [address] [place] [address]Dr. Areli Yousif EO # 0.5 103/ul Normal 0.0-0.7 [facility] Comment on above: Performed By: #### C BC ####[facility] [address] [place] [address]Dr. Areli Yousif Eosinophils/100 WBC (Bld) 9.0 % Critically high 0.9-7.0 [facility] Comment on above: Performed By: #### C BC ####[facility] U[address]ox[address]jmq[address] [place] [address]Dr. Areli Yousif Erythrocyte distribution width (RBC) [Ratio] 13.9 % Normal 11.0-15.0 [facility] Comment on above: Performed By: #### C BC ####[facility] Ebq[address]xoiav[address] [place] [address]Dr. Areli Yousif Hematocrit (Bld) [Volume fraction] 33.2 % Critically low 42.0-54.0 [facility] Comment on above: Performed By: #### C BC ####[facility] [address]jbx[address] [place] [address]Dr. Areli Yousif Hemoglobin (Bld) [Mass/Vol] 10.3 g/dL Critically low 14.0-18.0 [facility] Comment on above: Performed By: #### C BC ####[facility] [address] [place] [address]Dr. Areli Yousif IG # 0.01 10e3/ul Normal 0.00-0.03 [facility] Comment on above: Performed By: #### C BC ####[facility] [address] [place], [place] [address]Dr. Tabbytulio Yousif IG % 0.2 % Normal 0.0-0.5 [facility] Comment on above: Performed By: #### C BC ####[facility] [address]fju[address] [place] [address]Dr. Areli Benja LYMPH # 2.3 103/ul Normal 1.2-3.8 [facility] Comment on above: Performed By: #### C BC ####[facility] [address]vlp[address] [place] [address]Dr. Areli Benja Lymphocytes/100 WBC (Bld) 40.3 % Normal 20.5-60.0 [facility] Comment on above: Performed By: #### C BC ####[facility] Bvlibergie[address] [place] [address]Dr. Areli Yousif MANUAL DIFF REQ NO Normal [facility] Comment on above: Performed By: #### C BC ####[facility] Jwbjbpwlqy[address] [place] [address]DrDenae Areli Yousif MCH (RBC) [Entitic mass] 28.1 pg Normal 25.9-34.0 [facility] Comment on above: Performed By: #### C BC ####[facility] Slevxjgean[address] [place], [place] [address]Dr. Areli Benja MCHC (RBC) [Mass/Vol] 31.0 g/dL Normal 29.9-35.2 [facility] Comment on above: Performed By: #### C BC ####[facility] Yguulrropu0523 [place] [id number]. Areli Benja MCV (RBC) [Entitic vol] 90.7 fL Normal 80.0-94.0 [facility] Comment on above: Performed By: #### C BC ####[facility] Eejawvvqdo7379 [place] [address]Dr. Tabbytulio Benja MONO # 0.4 103/ul Normal 0.3-0.8 [facility] Comment on above: Performed By: #### C BC ####[facility] Wrincpohye3332 [place] [address]Dr. Areli Yousif Monocytes/100 WBC (Bld) 6.1 % Normal 1.7-12.0 [facility] Comment on above: Performed By: #### C BC ####[facility] Weppnrlbzs[address] [place], [place] [address]Dr. Tabbytulio Benja NEUT # 2.5 103/ul Normal 1.4-6.5 [facility] Comment on above: Performed By: #### C BC ####[facility] Rmrlrwdjbi3722 [place] [address]Dr. Areli Yousif Neutrophils/100 WBC (Bld) 43.9 % Normal 43.0-75.0 [facility] Comment on above: Performed By: #### C BC ####[facility] Giyekbrtsl3260 [place] [address]Dr. Areli Yousif Platelet mean volume (Bld) [Entitic vol] 10.4 fL Normal 9.5-13.5 [facility] Comment on above: Performed By: #### C BC ####[facility] Xblvislgce5163 [place] [address]Dr. Areli Yousif PLT 212 103/ul Normal 150-450 [facility] Comment on above: Performed By: #### C BC ####[facility] Qachbarvgn2241 [place] [id number]. Areli Yousif RBC 3.66 106/ul Critically low 4.70-6.10 [facility] Comment on above: Performed By: #### C BC ####[facility] Euoxefqkyv5633 [place], [place] [address]Oe. Areli Yousif WBC 5.8 103/ul Normal 4.0-11.0 [facility] Comment on above: Performed By: #### C BC ####[facility] Spqkpjmjhh7793 [place], [place] [address]Lj. Areli Yousif Covid-19 PCR (CVDTBH)on 01-03 SARS-CoV-2 (COVID-19) RNA MANSI+probe Ql (Unsp spec) Not detected Normal NOT DETECTED [facility] Comment on above: Result Comment: When [...] for this test is supported by the Call Center Support Representative of Health and Human Service's declaration that [...] be used). Performed By: #### C VDTBH ####[facility] Rorfpacqbj8393 [place], [place] [address]Nz. Areli Yousif ECHO LIMITED STUDYon 023 ECHO LIMITED STUDY Normal [facility] ER URINE PROFILEon 3 Bilirubin Ql (U) Negative Normal NEGATIVE [facility] Comment on above: Performed By: #### E RUR ####[facility] Trzlxeevqm5858 [place] [id number]. Areli Yousif Clarity (U) CLEAR Normal CLEAR [facility] Comment on above: Performed By: #### E RUR ####[facility] Xfnwgqgthw63[address] [place], [place] [address]Dr. Areli Yousif Color (U) LT. YELLOW Normal YELLOW [facility] Comment on above: Performed By: #### E RUR ####[facility] Ugacxgghyc882[address] [place], [place] [address]Dr. Areli Yousif ERUAHD A micrscopic examination will be performed if indicated. Normal [facility] Comment on above: Performed By: #### E RUR ####[facility] Tsofksyjxh9269[address] [place], [place] [address]Dr. Areli Benja Glucose Ql (U) Negative Normal NEGATIVE [facility] Comment on above: Performed By: #### E RUR ####[facility] Owifomuwxp4422[address] [place], [place] [address]Dr. Areli Yousif Hemoglobin Ql (U) Negative Normal NEGATIVE [facility] Comment on above: Performed By: #### E RUR ####[facility] Ismjscjjyb5780[address] [place], [place] [address]Dr. Areli Yousif Ketones Ql (U) Negative Normal NEGATIVE [facility] Comment on above: Performed By: #### E RUR ####[facility] Ijbttiitnu2390[address] [place], [place] [address]Dr. Areli Yousif LEUKOCYTES Negative Normal NEGATIVE [facility] Comment on above: Performed By: #### E RUR ####[facility] Gksxcxrvhp7225[address] [place], [place] [address]Dr. Areli Yousif Nitrite Ql (U) Negative Normal NEGATIVE [facility] Comment on above: Performed By: #### E RUR ####[facility] Iyatmrgota6510[address] [place], [place] [address]Dr. Areli Yousif pH (U) 6.0 [pH] Normal 5-9 [facility] Comment on above: Performed By: #### E RUR ####[facility] Navktteayb815[address] [place], [place] [address]Dr. Areli Yousif SPEC GRAVITY 1.010 Normal 1.005-<=1.[address] [facility] Comment on above: Performed By: #### E RUR ####[facility] Ckzwxntnmt1033 [place] [address]Dr. Areli Yousif UA PROTEIN TRACE Normal NEGATIVE/ TRACE [facility] Comment on above: Performed By: #### E RUR ####[facility] Ycxipofgoo0858 [place] [address]Dr. Areli Yousif UR MICRO IND NOT INDICATED Normal [facility] Comment on above: Performed By: #### E RUR ####[facility] Azqrzpgmsn2053 [place] [address]Dr. Areli Yousif Urobilinogen Qn (U) 0.2 {Alyssia'U}/dL Normal 0.2 - 1. 0 [facility] Comment on above: Performed By: #### E RUR ####[facility] Dcionvcelo6[address] [place], [place] [address]Dr. Areli Yousif POINT OF CARE GLUCOSEon 01-03 Glucose [Mass/Vol] 88 mg/dL Normal 74-106 [facility] Comment on above: Performed By: #### P OCGLUC ####[facility] Qfttkyliyo5630[address] [place], [place] [address]DrDenae Yousif PROF 14(COMP METB)on 023 Albumin [Mass/Vol] 2.8 g/dL Critically low 3.4-5.0 [facility] Comment on above: Performed By: #### C MP ####[facility] Aujyydtcyx066[address] [place], [place] [address]Dr. Areli Yousif Albumin/Globulin [Mass ratio] 0.9 {ratio} Normal [facility] Comment on above: Performed By: #### C MP ####[facility] Cbxwvwzxat8040[address] [place], [place] [address]Dr. Areli Yousif ALP [Catalytic activity/Vol] 76 U/L Normal 46-116 [facility] Comment on above: Performed By: #### C MP ####[facility] Ilnfrcyyul3532[address] [place], [place] [address]Dr. Areli Yousif ALT [Catalytic activity/Vol] 15 U/L Critically low 16-63 [facility] Comment on above: Performed By: #### C MP ####[facility] Teenihqjla2803 [place] [address]Dr. Areli Benja Anion gap [Moles/Vol] 13.0 mmol/L Normal Th e [facility] Comment on above: Performed By: #### C MP ####[facility] Gnrlstemkm0965 [place] [address]Dr. Areli Benja AST [Catalytic activity/Vol] 14 U/L Critically low 15-37 [facility] Comment on above: Performed By: #### C MP ####[facility] Xpvrpkyrmm[address] [place], [place] [address]Dr. Areli Yousif Bilirubin [Mass/Vol] 0.2 mg/dL Normal 0.2-1.0 [facility] Comment on above: Performed By: #### C MP ####[facility] Wfvjrruzpd166[address] [place], [place] [address]Dr. Areli Yousif Calcium [Mass/Vol] 8.9 mg/dL Normal 8.5-10.1 [facility] Comment on above: Performed By: #### C MP ####[facility] Aswmfoobyx622[address] [place], [place] [address]Dr. Areli Yousif Chloride [Moles/Vol] 106 mmol/L Normal 98-107 [facility] Comment on above: Performed By: #### C MP ####[facility] Eqageoorva4529[address] [place], [place] [address]Dr. Areli Yousif CO2 [Moles/Vol] 28.9 mmol/L Normal 21.0-32.0 [facility] Comment on above: Performed By: #### C MP ####[facility] Ssemkimmyc7230[address] [place], [place] [address]Dr. Areli Yousif Creatinine [Mass/Vol] 1.04 mg/dL Normal 0.70-1.30 [facility] Comment on above: Performed By: #### C MP ####[facility] Mosfydnnvo256[address] [place], [place] [address]Dr. Areli Yousif EGFR-AF CZECH >60 Normal >=60 [facility] Comment on above: Performed By: #### C MP ####[facility] Kfwmjiqvtb8546 [place] [id number]. Areli Benja EGFR-NON AF CZECH >60 Normal >=60 [facility] Comment on above: Performed By: #### C MP ####[facility] Mglldfwmqo4848 [place] [phone]. Areli Benja Globulin (S) [Mass/Vol] 3.2 g/dL Normal [facility] Comment on above: Performed By: #### C MP ####[facility] Vbwcruabkw9508 [place] [id number]. Areli Benja Glucose [Mass/Vol] 118 mg/dL Critically high 74-106 T [facility] Comment on above: Performed By: #### C MP ####[facility] Apovmtewks4867 [place] [address]Dr. Tabbytulio Yousif Potassium [Moles/Vol] 3.9 mmol/L Normal 3.5-5.1 [facility] Comment on above: Performed By: #### C MP ####[facility] Mouhkemhkd2954 [place] [id number]. Areli Benja Protein [Mass/Vol] 6.0 g/dL Critically low 6.4-8.2 Th [facility] Comment on above: Performed By: #### C MP ####[facility] Wmxfucttte0906 [place] [address]Dr. Areli Benja Sodium [Moles/Vol] 144 mmol/L Normal 136-145 [facility] Comment on above: Performed By: #### C MP ####[facility] Eaqqvegyts2772 [place] [id number]. Areli Benja Urea nitrogen [Mass/Vol] 32.0 mg/dL Critically high 7.0-18.0 [facility] Comment on above: Performed By: #### C MP ####[facility] Rsdfdzjvqe5604 [place] [id number]. Areli Yousif Urea nitrogen/Creatinine [Mass ratio] 30.8 mg/mg Normal [facility] Comment on above: Performed By: #### C MP ####[facility] Iuxldfdhlt884[address] [place], [place] [address]Dr. Areli Yousif AMMONIAon 01-14-2023 Ammonia (P) [Moles/Vol] 17 umol/L Normal 11-32 [facility] Comment on above: Performed By: #### A MM ####[facility] Nsfqmjgwvk710[address] [place], [place] [address]Dr. Areli Yousif CBC AUTO DIFFon 01-14-2023 BASO # 0.0 103/ul Normal 0.0-0.1 [facility] Comment on above: Performed By: #### C BC ####[facility] Bztkyjyqzk410[address] [place], [place] [address]Dr. Areli Yousif Basophils/100 WBC (Bld) 0.5 % Normal 0.2-2.0 [facility] Comment on above: Performed By: #### C BC ####[facility] Jelijbykuk428[address] [place], [place] [address]Dr. Areli Yousif EO # 0.6 103/ul Normal 0.0-0.7 [facility] Comment on above: Performed By: #### C BC ####[facility] Nvhwdizita[address] [place], [place] [address]Dr. Areli Yousif Eosinophils/100 WBC (Bld) 9.3 % Critically high 0.9-7.0 [facility] Comment on above: Performed By: #### C BC ####[facility] Vrvydtvmxh825[address] [place], [place] [address]Dr. Areli Yousif Erythrocyte distribution width (RBC) [Ratio] 14.1 % Normal 11.0-15.0 [facility] Comment on above: Performed By: #### C BC ####[facility] Fvsbrrizbg301[address] [place], [place] [address]DrDenae Yousif Hematocrit (Bld) [Volume fraction] 33.0 % Critically low 42.0-54.0 [facility] Comment on above: Performed By: #### C BC ####[facility] Ktcdsgjwjo6309[address] [place], [place] [address]Dr. Areli Yousif Hemoglobin (Bld) [Mass/Vol] 10.5 g/dL Critically low 14.0-18.0 [facility] Comment on above: Performed By: #### C BC ####[facility] Qopqkkayhe[address] [place] [address]DrDenae Yousif IG # 0.01 10e3/ul Normal 0.00-0.03 [facility] Comment on above: Performed By: #### C BC ####[facility] Gnkqdhpmax438[address] [place], [place] [address]DrDenae Yousif IG % 0.2 % Normal 0.0-0.5 [facility] Comment on above: Performed By: #### C BC ####[facility] Tubktmlrmu166[address] [place], [place] [address]DrDenae Yousif LYMPH # 2.2 103/ul Normal 1.2-3.8 [facility] Comment on above: Performed By: #### C BC ####[facility] Sjywqiwioa33[address] [place], [place] [address]DrDenae Yousif Lymphocytes/100 WBC (Bld) 35.0 % Normal 20.5-60.0 [facility] Comment on above: Performed By: #### C BC ####[facility] Kanseonhbe675[address] [place], [place] [address]DrDenae Yousif MANUAL DIFF REQ NO Normal [facility] Comment on above: Performed By: #### C BC ####[facility] Wvmgpzybam585[address] [place], [place] [address]DrDenae Yousif MCH (RBC) [Entitic mass] 28.8 pg Normal 25.9-34.0 [facility] Comment on above: Performed By: #### C BC ####[facility] Nkuqkvbleg7024[address] [place], [place] [address]DrDenae Yousif MCHC (RBC) [Mass/Vol] 31.8 g/dL Normal 29.9-35.2 [facility] Comment on above: Performed By: #### C BC ####[facility] Fygbonfsjc6087[address] [place], [place] [address]DrDenae Yousif MCV (RBC) [Entitic vol] 90.4 fL Normal 80.0-94.0 [facility] Comment on above: Performed By: #### C BC ####[facility] Mbgkvsjvha3857 [place] [address]DrDenae Areli Yousif MONO # 0.5 103/ul Normal 0.3-0.8 [facility] Comment on above: Performed By: #### C BC ####[facility] Zhtugrwygi2947 [place] [address]DrDenae Areli Benja Monocytes/100 WBC (Bld) 7.1 % Normal 1.7-12.0 [facility] Comment on above: Performed By: #### C BC ####[facility] Nompwpxzoe6960[address] [place], [place] [address]DrDenae Areli Yousif NEUT # 3.1 103/ul Normal 1.4-6.5 [facility] Comment on above: Performed By: #### C BC ####[facility] Zdrnzkdyan0540[address] [place], [place] [address]DrDenae Areli Benja Neutrophils/100 WBC (Bld) 47.9 % Normal 43.0-75.0 [facility] Comment on above: Performed By: #### C BC ####[facility] Vpxdgfaodh060[address] [place], [place] [address]DrDenae Areli Benja Platelet mean volume (Bld) [Entitic vol] 10.8 fL Normal 9.5-13.5 [facility] Comment on above: Performed By: #### C BC ####[facility] Tbjiujkdev900[address] [place], [place] [address]DrDenae Areli Benja PLT 208 103/ul Normal 150-450 [facility] Comment on above: Performed By: #### C BC ####[facility] Pkbhmndkhs4701[address] [place], [place] [address]DrDenae Yousif RBC 3.65 106/ul Critically low 4.70-6.10 [facility] Comment on above: Performed By: #### C BC ####[facility] Isefntsmkm403[address] [place], [place] [address]DrDenae Yousif WBC 6.4 103/ul Normal 4.0-11.0 [facility] Comment on above: Performed By: #### C BC ####[facility] Achjrbjlka[address] [place] [address]Dr. Are[address] Yousif CT CSPINE WO CONon 3 CT CSPINE WO CON Normal [facility] CT HEAD WO CONon 01-14-2023 CT HEAD WO CON Normal [facility] CT LSPINE WO CONon 3 CT LSPINE WO CON Normal [facility] CT TSPINE WO CONon 3 CT TSPINE WO CON Normal [facility] LACTATE/LACTIC ACIDon 2022 Lactate [Moles/Vol] 1.6 mmol/L Normal 0.4-2.0 [facility] Comment on above: Performed By: #### L ACT ####[facility] Wcxqhridxr7046 [place] [address]Dr. Areli Yousif PH VENOUS BLOODon 01-14-2023 PCO2 VENOUS 44.9 mmHg Normal 40.0-52.0 [facility] Comment on above: Performed By: #### P HVEN ####[facility] Btlybjkdku8534 [place] [address]Dr. Areli Yousif pH VENOUS 7.407 Normal 7.330-7.430 [facility] Comment on above: Performed By: #### P HVEN ####[facility] Ffxutlhrjk0911 [place] [address]Dr. Areli Yousif POINT OF CARE GLUCOSEon 01-03 Glucose [Mass/Vol] 231 mg/dL Critically high 74-106 [facility] Comment on above: Performed By: #### P OCGLUC ####[facility] Sqejkkfvvq0862 [place] [id number]. Areli Yousif PROF 14(COMP METB)on 023 Albumin [Mass/Vol] 2.9 g/dL Critically low 3.4-5.0 [facility] Comment on above: Performed By: #### T SH, CMP, HSTROPN ####[facility] Lntkfmrcti8988 [place] [address]Dr. Areli Yousif Albumin/Globulin [Mass ratio] 0.8 {ratio} Normal [facility] Comment on above: Performed By: #### T FESTUS, CMP, HSTROPN ####[facility] Yxhmrcrbdc2870 [place] [address]Dr. Areli Yousif ALP [Catalytic activity/Vol] 85 U/L Normal 46-116 [facility] Comment on above: Performed By: #### T SH, CMP, HSTROPN ####[facility] Fezlrgsgds5807 [place] [address]Dr. Tabbytulio Yousif ALT [Catalytic activity/Vol] 16 U/L Normal 16-63 [facility] Comment on above: Performed By: #### T SH, CMP, HSTROPN ####[facility] Qnxmirutys1775 [place] [address]Dr. Areli Yousif Anion gap [Moles/Vol] 13.2 mmol/L Normal [facility] Comment on above: Performed By: #### T FESTUS, CMP, HSTROPN ####[facility] Ayqcobkodo37[address] [place], [place] [address]Dr. Tabbytulio Yousif AST [Catalytic activity/Vol] 13 U/L Critically low 15-37 [facility] Comment on above: Performed By: #### T FESTUS, CMP, HSTROPN ####[facility] Hpjcpubmie5412 [place] [address]Dr. Areli Yousif Bilirubin [Mass/Vol] 0.2 mg/dL Normal 0.2-1.0 [facility] Comment on above: Performed By: #### T SH, CMP, HSTROPN ####[facility] Whcqsmyedd8010 [place] [address]Dr. Areli Yousif Calcium [Mass/Vol] 9.0 mg/dL Normal 8.5-10.1 [facility] Comment on above: Performed By: #### T SH, CMP, HSTROPN ####[facility] Skvqixniqx1490 [place] [address]Dr. Areli Yousif Chloride [Moles/Vol] 104 mmol/L Normal 98-107 [facility] Comment on above: Performed By: #### T SH, CMP, HSTROPN ####[facility] Ffsupbwgpu1406 [place] [address]Dr. Areli Yousif CO2 [Moles/Vol] 28.3 mmol/L Normal 21.0-32.0 [facility] Comment on above: Performed By: #### T SH, CMP, HSTROPN ####[facility] Cgxcwomwgw1162 [place] [address]Dr. Areli Yousif Creatinine [Mass/Vol] 1.26 mg/dL Normal 0.70-1.30 [facility] Comment on above: Performed By: #### T SH, CMP, HSTROPN ####[facility] Jhqxutlajf5[address] [place], [place] [address]Dr. Areli Yousif EGFR-AF CZECH >60 Normal >=60 [facility] Comment on above: Performed By: #### T SH, CMP, HSTROPN ####[facility] Isjfovmqur27[address] [place], [place] [address]Dr. Areli Yousif EGFR-NON AF CZECH 57 mL/min/1.73m2 Critically low >=60 [facility] Comment on above: Performed By: #### T SH, CMP, HSTROPN ####[facility] Ovixspxgre109[address] [place], [place] [address]Dr. Areli Yousif Globulin (S) [Mass/Vol] 3.5 g/dL Normal [facility] Comment on above: Performed By: #### T SH, CMP, HSTROPN ####[facility] Wnfynjyldd0687 [place] [address]Dr. Areli Yousif Glucose [Mass/Vol] 233 mg/dL Critically high 74-106 [facility] Comment on above: Performed By: #### T SH, CMP, HSTROPN ####[facility] Qztbinlons1995[address] [place], [place] [address]Dr. Areli Yousif Potassium [Moles/Vol] 4.5 mmol/L Normal 3.5-5.1 [facility] Comment on above: Performed By: #### T SH, CMP, HSTROPN ####[facility] Skisvtofpa0909 [place] [address]Dr. Areli Yousif Protein [Mass/Vol] 6.4 g/dL Normal 6.4-8.2 [facility] Comment on above: Performed By: #### T SH, CMP, HSTROPN ####[facility] Rbgwepiajt2925 [place] [address]Dr. Areli Yousif Sodium [Moles/Vol] 141 mmol/L Normal 136-145 [facility] Comment on above: Performed By: #### T SH, CMP, HSTROPN ####[facility] Sjamcrdlnp3992 [place] [address]Dr. Areli Yousif Urea nitrogen [Mass/Vol] 40.0 mg/dL Critically high 7.0-18.0 [facility] Comment on above: Performed By: #### T SH, CMP, HSTROPN ####[facility] Rmvqznzkkj6502 [place] [address]Dr. Areli Yousif Urea nitrogen/Creatinine [Mass ratio] 31.7 mg/mg Normal [facility] Comment on above: Performed By: #### T SH, CMP, HSTROPN ####[facility] Ktimamwrde5814 [place] [address]Dr. Areli Yousif PROTIMEon 01-14-2023 INR Coag (PPP) [Relative time] 1.01 {INR} Normal [facility] Comment on above: Performed By: #### P TT, PT ####[facility] Xymdzlmeaq[address] [place], [place] [address]Dr. Areli Yousif INR GUIDELINES SEE BELOW Normal [facility] Comment on above: Result Comment: LANDON RED INR: 2.0 - 3.0 CONDITIONS NOT LISTED BELOW 2.5 - 3.5 FOR PROSTHETIC HEART VALVE REPLACEMENT 2.5 - 3.5 RECURRENT THROMBOSIS Performed By: #### P TT, PT ####[facility] Tkufmvzdlo[address] [place], [place] [address]Dr. Areli Yousif PT Coag (PPP) [Time] 10.7 s Normal 9.0-11.6 [facility] Comment on above: Performed By: #### P TT, PT ####[facility] Ftfgjckxph8848 [place], [place] [address]Fh. Areli Yousif PTTon 01-14-2023 aPTT Coag (Bld) [Time] 29.4 s Normal 22.3-36.2 Th [facility] Comment on above: Performed By: #### P TT, PT ####[facility] Ztmqcgaikf9419 [place] [id number]. Areli Yousif TROPONIN, HIGH SENSITIVITYon 01-14-2023 HSTROP 7.6 pg/mL Normal 4.0-76.1 [facility] Comment on above: Result Comment: CUT- OFF POINTS HAVE BEEN ESTABLISHED BASED ON THE FOURTH UNIVERSAL DEFINITIONS OF MYOCARDIALINFARCTION. THE UPPER REFERENCE LIMIT (URL) OF TROPONIN, DEFINED THE 99TH PERCENTILE OFcTnI DISTRIBUTION IN A REFERENCE POPULATION, HAS BEEN CONFIRMED THE DECISION THRESHOLDFOR LA DIAGNOSIS. Performed By: #### T SH, CMP, HSTROPN ####[facility] Lasohmaams30[address] [place] [id number]. Areli Yousif TSHon 01-14-2023 TSH 2.590 uIU/mL Normal 0.358-3.740 [facility] Comment on above: Performed By: #### T SH, CMP, HSTROPN ####[facility] Sosykpzxmy6947 [place] [id number]. Areli Yousif XR CHEST 1 Von 01-14-2023 XR CHEST 1 V Normal [facility] XR KNEE RT 4V or >on 023 XR KNEE RT 4V or > Normal [facility] XR PELVIS 1_2 VIEWSon 2022 XR PELVIS 1_2 VIEWS Normal [facility] CHEMISTRYOrdered By: Lab ROP User on 12-25-2022 Glucose [Mass/Vol] 214 mg/dL High 55 - 99 mg/dL [facility] POC Subsection Comment on above: Result Comment: Clemente christopher RN/ POC Device SN [id number] Invalid Interpretation Code [facility] POC Subsection POC User ID [id number] Invalid Interpretation Code [facility] POC Subsection POC Username [email or web address] Invalid Interpretation Code [facility] POC Subsection Glucose [Mass/Vol] 140 mg/dL High 55 - 99 mg/dL [facility] POC Subsection Comment on above: Result Comment: Clemente christopher RN/ POC Device SN [id number] Invalid Interpretation Code [facility] POC Subsection POC User ID [id number] Invalid Interpretation Code [facility] POC Subsection POC Username WEI DOBSON Invalid Interpretation Code [facility] POC Subsection CHEMISTRYOrdered By: SYSTEM SYSTEM on 12-25-2022 Cobalamin (Vitamin B12) [Mass/Vol] 272 pg/mL Normal 50 - 1500 pg/mL [facility] Remisol Ferritin [Mass/Vol] 145 ng/mL Normal 24 [...] 1.3 % Normal 0.5 - 1.5 % [facility] HemeAutoSS CHEMISTRYOrdered By: Lab ROP User on 12-24-2022 Glucose [Mass/Vol] 202 mg/dL High 55 - 99 mg/dL [facility] POC Subsection POC Device SN [id number] Invalid Interpretation Code [facility] POC Subsection POC User ID [id number] Invalid Interpretation Code [facility] POC Subsection POC Username SUKUMAR SIR BENIGNO Invalid Interpretation Code [facility] POC Subsection CHEMISTRYOrdered By: SYSTEM SYSTEM on [...] 139 mmol/L Normal 135 - 145 mmol/L [facility] Remisol CHEMISTRYOrdered By: SYSTEM SYSTEM on 12-22-2022 Anion gap [Moles/Vol] 8 mmol/L Normal 6 - 16 mEq/L [facility] Remisol Calcium [Mass/Vol] 8.4 mg/dL Low 8.9 - 11. 1 mg/dL [facility] Chloride [Moles/Vol] 104 mmol/L Normal 101 - 1 11 mmol/L [facility] Remisol CO2 [Moles/Vol] 30 mmol/L Normal 21 - 31 mmol/L [facility] Remisol Creatinine [Mass/Vol] 1.1 mg/dL Normal 0.5 - 1.3 mg/dL [facility] Remisol GFR/1.73 sq M.predicted among blacks MDRD (S/P/Bld) [Vol rate/Area] mL/min/1.73 m2 Normal >=59mL/min/1 .73 m2 [facility] Chem S GFR/1.73 sq M.predicted among non-blacks MDRD (S/P/Bld) [Vol rate/Area] mL/min/1.73 m2 Normal >=59mL/min/1 .73 m2 [facility] Chem S Glucose [Mass/Vol] 151 mg/dL Normal 55 - 199 mg/dL [facility] Remisol Magnesium [Mass/Vol] 1.6 mg/dL Normal 1.3 - 2 .4 mg/dL [facility] [place] Remisol Potassium [Moles/Vol] 3.9 mmol/L Normal 3.5 - 5.3 mmol/L [facility] [place] Remisol Sodium [Moles/Vol] 138 mmol/L Normal 135 - 145 mmol/L [facility] [place] Remisol Urea nitrogen [Mass/Vol] 25 mg/dL High 5 - 21 mg/dL [facility] [place] Remisol Urea nitrogen/Creatinine [Mass ratio] 23 mg/mg High 10 - 20 [facility] [place] Remisol CHEMISTRYOrdered By: Susie ga on 12-22-2022 HbA1c (Bld) [Mass fraction] 8.0 % High <=5.9% [facility] [facility] [place] ChemAutoSS HEMATOLOGYOrdered By: SYSTEM SYSTEM on 12-22-2022 Basophils/100 WBC (Bld) 0.5 % Normal 0.0 - 2.0 % [facility] [place] HemeAutoSS Basophils/Leukocytes Auto (Bld) [Pure # fraction] [...] 4.2 E9/L Normal 2.0 - 7.5 E9/L [facility] HemeAutoSS HEMATOLOGYOrdered By: Sheba Olivarez on 12-22-2022 [...] 8.4 fL Normal 6.4 - 10.8 fL [facility] HemeAutoSS Platelets (Bld) [#/Vol] 324.0 E9/L Normal 150.0 - 500.0 E9/L [facility] HemeAutoSS RBC (Bld) [#/Vol] 3.7 E12/L Low 4.3 - 5.9 E12/L [facility] HemeAutoSS WBC corrected for nucl RBC Auto (Bld) [#/Vol] 8.9 E9/L Normal 4.0 - 11.0 E9/L [facility] [place] HemeAutoSS BLOOD BANKOrdered By: Brianna Londono on 12-21-2022 ABO/Rh Retype Interp Negative Invalid Interpretation Code [facility] [place] BB Subsection CHEMISTRYOrdered By: SYSTEM SYSTEM on 12-21-2022 Anion gap [Moles/Vol] 9 mmol/L Normal 6 - 16 mEq/L [facility] Remisol Calcium [Mass/Vol] 8.6 mg/dL Low 8.9 - 11. 1 mg/dL [facility] Chloride [Moles/Vol] 105 mmol/L Normal 101 - 1 11 mmol/L [facility] CO2 [Moles/Vol] 30 mmol/L Normal 21 - 31 mmol/L [facility] Creatinine [Mass/Vol] 1.0 mg/dL Normal 0.5 - 1.3 mg/dL [facility] GFR/1.73 sq M.predicted among blacks MDRD (S/P/Bld) [Vol rate/Area] mL/min/1.73 m2 Normal >=59mL/min/1 .73 m2 [facility] Chem S GFR/1.73 sq M.predicted among non-blacks MDRD (S/P/Bld) [Vol rate/Area] mL/min/1.73 m2 Normal >=59mL/min/1 .73 m2 [facility] [place] Chem S Glucose [Mass/Vol] 127 mg/dL Normal 55 - 199 mg/dL [facility] Potassium [Moles/Vol] 3.7 mmol/L Normal 3.5 - 5.3 mmol/L [facility] Sodium [Moles/Vol] 140 mmol/L Normal 135 - 145 mmol/L [facility] Troponin I.cardiac [Mass/Vol] 13.40 pg/mL Low 15.90 - 38.40 pg/mL [facility] TSH Qn 2.13 m[IU]/L Normal 0.34 [...] AM) Normal Negative [facility] UA Auto SS [place].plasma/[place] .RBC (Bld) [Mass ratio] 0-3 /HPF Normal [...] Desc Clean Catch (12/21/22 1:07 AM) Normal [facility] UA Auto SS Urobilinogen Qn (U) 0.3424276 {Alyssia'U}/dL Normal 0.0 - 1.0 EU/dL [facility] UA Auto SS WBC Auto Ql (U) Negative (12/21/22 1:07 AM) Normal Negative [facility] UA Auto SS WBC LM.HPF (Urine sed) [#/Area] 0-5 /HPF Normal 0-5/HPF [facility] UA Auto SS BLOOD BANKOrdered By: Edilia Aquino on 12-20-2022 ABO/Rh Interp Negative Invalid Interpretation Code [facility] [place] BB Subsection ABSC Gel Interp Negative (12/20/22 11:19 PM) Normal [facility] [place] BB Subsection CHEMISTRYOrdered By: SYSTEM SYSTEM on 12-20-2022 Albumin [Mass/Vol] 3.1 g/dL Low 3.3 - 5.0 gm/dL [facility] Remisol Albumin/Globulin [Mass ratio] 1.0 {ratio} Low [...] [facility] Remisol Ethanol [Mass/Vol] mg/dL Normal <=7mg/dL [facility] [place] R emisol GFR/1.73 sq M.predicted among blacks MDRD (S/P/Bld) [Vol rate/Area] mL/min/1.73 m2 Normal >=59mL/min/1 .73 m2 [facility] [place] Chem S GFR/1.73 sq M.predicted among non-blacks MDRD (S/P/Bld) [Vol rate/Area] 60 mL/min/1.73 m2 Normal >=59mL/min/1 .73 m2 [facility] [place] Chem S Globulin (S) [Mass/Vol] 3.2 g/dL [...] (Bld) [Mass/Vol] 867.0 pg/mL Normal <=900.0 [facility] Comment on above: Performed By: #### C BEE, CMP, BNP ####[facility] [address]opxcjdgmj[address] [place], [place] [address]Mm. Areli Yousif CARDIAC ASHLEY ADMITon 023 CK [Catalytic activity/Vol] 18 U/L Critically low 39-308 [facility] Comment on above: Performed By: #### C MADM, CMP, BNP ####[facility] [address]dkpkkb04[address] [place] [id number]. Areli Benja CK.MB [Mass/Vol] 0.70 ng/mL Normal <=3.60 [facility] Comment on above: Performed By: #### C MADM, CMP, BNP ####[facility] Qmabrswjjh5284 [place] [id number]. Areli Benja HSTROP 6.5 pg/mL Normal 4.0-76.1 [facility] Comment on above: Result Comment: CUT- OFF POINTS HAVE BEEN ESTABLISHED BASED ON THE FOURTH UNIVERSAL DEFINITIONS OF MYOCARDIALINFARCTION. THE UPPER REFERENCE LIMIT (URL) OF TROPONIN, DEFINED THE 99TH PERCENTILE OFcTnI DISTRIBUTION IN A REFERENCE POPULATION, HAS BEEN CONFIRMED THE DECISION THRESHOLDFOR LA DIAGNOSIS. Performed By: #### C MADM, CMP, BNP ####[facility] Kvmqttqlen[address] [place] [address]Dr. Tabbytulio Yousif LAWRENCE 41 ng/mL Normal 16-96 [facility] Comment on above: Performed By: #### C MADM, CMP, BNP ####[facility] Zzbekunway34[address] [place] [address]Dr. Tabbytulio Yousif CBC AUTO DIFFon 12-17-2022 BASO # 0.0 103/ul Normal 0.0-0.1 [facility] Comment on above: Performed By: #### C BC ####[facility] Jjjkjhruan[address] [place], [place] [address]Dr. Areli Yousif Basophils/100 WBC (Bld) 0.3 % Normal 0.2-2.0 [facility] Comment on above: Performed By: #### C BC ####[facility] Xgbtpgatea2205 [place] [address]Dr. Areli Yousif EO # 0.1 103/ul Normal 0.0-0.7 [facility] Comment on above: Performed By: #### C BC ####[facility] Nmowsitlak[address] [place], [place] [address]Dr. Areli Yousif Eosinophils/100 WBC (Bld) 1.1 % Normal 0.9-7.0 [facility] Comment on above: Performed By: #### C BC ####[facility] Onfvfidxrf1487 [place] [address]Dr. Areli Yousif Erythrocyte distribution width (RBC) [Ratio] 12.9 % Normal 11.0-15.0 [facility] Comment on above: Performed By: #### C BC ####[facility] Vtupybuphc[address] [place], [place] [address]Dr. Areli Yousif Hematocrit (Bld) [Volume fraction] 35.9 % Critically low 42.0-54.0 [facility] Comment on above: Performed By: #### C BC ####[facility] Jvaosumdai[address] [place], [place] [address]Dr. Areli Yousif Hemoglobin (Bld) [Mass/Vol] 11.2 g/dL Critically low 14.0-18.0 [facility] Comment on above: Performed By: #### C BC ####[facility] Jlqnrozvrp[address] [place], [place] [address]Dr. Areli Yousif IG # 0.03 10e3/ul Normal 0.00-0.03 [facility] Comment on above: Performed By: #### C BC ####[facility] Geayzhojro98[address] [place], [place] [address]Dr. Areli Yousif IG % 0.4 % Normal 0.0-0.5 [facility] Comment on above: Performed By: #### C BC ####[facility] Qqwowgpfph128[address] [place], [place] [address]Dr. Areli Yousif LYMPH # 1.1 103/ul Critically low 1.2-3.8 [facility] Comment on above: Performed By: #### C BC ####[facility] Cmdzwonrci[address] [place], [place] [address]Dr. Areli Yousif Lymphocytes/100 WBC (Bld) 14.5 % Critically low 20.5-60.0 [facility] Comment on above: Performed By: #### C BC ####[facility] Ladtwwicsk8937[address] [place], [place] [address]Dr. Areli Yousif MANUAL DIFF REQ NO Normal [facility] Comment on above: Performed By: #### C BC ####[facility] Zajfqsjtoo8174 [place] [id number]. Areli Yousif MCH (RBC) [Entitic mass] 28.2 pg Normal 25.9-34.0 [facility] Comment on above: Performed By: #### C BC ####[facility] Fpoiwqfbxl1889 [place] [address]Dr. Areli Yousif MCHC (RBC) [Mass/Vol] 31.2 g/dL Normal 29.9-35.2 [facility] Comment on above: Performed By: #### C BC ####[facility] Ygwvuougje5634 [place] [address]Dr. Areli Benja MCV (RBC) [Entitic vol] 90.4 fL Normal 80.0-94.0 [facility] Comment on above: Performed By: #### C BC ####[facility] Oaolmucyqf[address] [place], [place] [address]DrDenae Areli Benja MONO # 0.1 103/ul Critically low 0.3-0.8 [facility] Comment on above: Performed By: #### C BC ####[facility] Fpgevguehw40[address] [place], [place] [address]Dr. Areli Benja Monocytes/100 WBC (Bld) 1.6 % Critically low 1.7-12.0 [facility] Comment on above: Performed By: #### C BC ####[facility] Buoddianuf[address] [place], [place] [address]Dr. Areli Yousif NEUT # 6.0 103/ul Normal 1.4-6.5 [facility] Comment on above: Performed By: #### C BC ####[facility] Jylephoylx[address] [place], [place] [address]DrDenae Areli Benja Neutrophils/100 WBC (Bld) 82.1 % Critically high 43.0-75.0 [facility] Comment on above: Performed By: #### C BC ####[facility] Nmahnwgsfu38[address] [place], [place] [address]DrDenae Areli Benja Platelet mean volume (Bld) [Entitic vol] 10.1 fL Normal 9.5-13.5 [facility] Comment on above: Performed By: #### C BC ####[facility] Zxxvzztamz68[address] [place], [place] [address]Mz. Areli Yousif PLT 370 103/ul Normal 150-450 [facility] Comment on above: Performed By: #### C BC ####[facility] Yifplrmpvw2916 [place], [place] [address]Hx. Areli Yousif RBC 3.97 106/ul Critically low 4.70-6.10 [facility] Comment on above: Performed By: #### C BC ####[facility] Mwyqlmdsid4103 [place], [place] [address]Yo. Areli Yousif WBC 7.3 103/ul Normal 4.0-11.0 [facility] Comment on above: Performed By: #### C BC ####[facility] Fhngarjyjr8538 [place], [place] [address]Uo. [address] CT CSPINE WO CONon 3 CT CSPINE WO CON Normal [facility] CT STROKE HEAD WOon 12-18-19 CT STROKE HEAD WO Normal [facility] CTA NECK WO W CONon 12-18-19 CTA NECK WO W CON Normal [facility] DRUG SCREEN RAPID (URINE)on 12-17-2022 AMP Negative Normal NEGATIVE [facility] Comment on above: Performed By: #### E RUR, DRUGRPD ####[facility] Chvbxsovsv0504 [place] [id number]. Areil Yousif BAR Negative Normal NEGATIVE [facility] Comment on above: Performed By: #### E RUR, DRUGRPD ####[facility] Hkhwzjlieh4872 [place], [place] [address]Zj. Areli Yousif BUP Negative Normal NEGATIVE [facility] Comment on above: Performed By: #### E RUR, DRUGRPD ####[facility] Knftterjzb2574 [place], [place] [address]Ro. Areli Yousif BZO Negative Normal NEGATIVE [facility] Comment on above: Performed By: #### E RUR, DRUGRPD ####[facility] Hntxgzlgpl[address] [place], [place] [address]Dr. Areli Yousif KAMALJIT Negative Normal NEGATIVE [facility] Comment on above: Performed By: #### Sid BARKER DRUGRPD ####[facility] Pwcqvaiada704[address] [place], [place] [address]Dr. Areli Yousif CUT-OFFS SEE BELOW Normal [facility] Comment on above: Result Comment: AMP [...] Performed By: #### Sid RUJosé Miguel DRUGRPD ####[facility] Dyoxdanbvo96[address] [place], [place] [address]Dr. Areli Yousif DRUG CUT HEADER DRUG CLASS TEST SYST EM CUT-OFF CONCENTRATIONS ARE FOLLOWS: Normal [facility] Comment on above: Performed By: #### Sid RUJosé Miguel DRUGRPD ####[facility] Rqaoivwamp[address] [place], [place] [address]Dr. Areli Yousif mAMP Negative Normal NEGATIVE [facility] Comment on above: Performed By: #### Sid RUJosé Miguel DRUGRPD ####[facility] Xmngoktpvx66[address] [place], [place] [address]Dr. Areli Yousif MTD Negative Normal NEGATIVE [facility] Comment on above: Performed By: #### Sid RUJosé Miguel DRUGRPD ####[facility] Jqasxcqyle9760[address] [place], [place] [address]Dr. Areli Yousif OPI Negative Normal NEGATIVE [facility] Comment on above: Performed By: #### E RUR DRUGRPD ####[facility] Vcknitsout36[address] [place], [place] [address]Dr. Areli Yousif OXY Negative Normal NEGATIVE [facility] Comment on above: Performed By: #### E RUR, DRUGRPD ####[facility] Vgpffvgqpp[address] [place], [place] [address]Dr. Tabbytulio Yousif PCP Negative Normal NEGATIVE [facility] Comment on above: Performed By: #### E RUR, DRUGRPD ####[facility] Irqxmwmnfk2935[address] [place], [place] [address]Dr. Areli Yousif PPX Negative Normal NEGATIVE [facility] Comment on above: Performed By: #### E RUR, DRUGRPD ####[facility] Beixkqnudd644[address] [place], [place] [address]Dr. Areli Yousif TCA Negative Normal NEGATIVE [facility] Comment on above: Performed By: #### E RUR, DRUGRPD ####[facility] Sawwamezjt546[address] [place], [place] [address]Dr. Tabbytulio Yousif THC Negative Normal NEGATIVE [facility] Comment on above: Performed By: #### E RUR, DRUGRPD ####[facility] Whkgdgscin447[address] [place], [place] [address]Dr. Tabbytulio Yousif ER URINE PROFILEon 3 Bilirubin Ql (U) Negative Normal NEGATIVE [facility] Comment on above: Performed By: #### E RUR, DRUGRPD ####[facility] Bmrsdvqwrb306[address] [place], [place] [address]Dr. Areli Yousif Clarity (U) CLEAR Normal CLEAR [facility] Comment on above: Performed By: #### E RUR, DRUGRPD ####[facility] Veebxnftln[address] [place], [place] [address]Dr. Areli Yousif Color (U) LT. YELLOW Normal YELLOW [facility] Comment on above: Performed By: #### E RUR, DRUGRPD ####[facility] Drejrrfqtc044[address] [place], [place] [address]Dr. Areli Yousif ERUAHD A micrscopic examination will be performed if indicated. Normal [facility] Comment on above: Performed By: #### E RUR, DRUGRPD ####[facility] Ozuboxlgac4042 [place] [address]Dr. Areli Yousif Glucose Ql (U) 250 mg/dl Abnormal NEGATIVE [facility] Comment on above: Performed By: #### Sid BARKER DRUGRPD ####[facility] Grqxqnunvx[address] [place], [place] [address]Dr. Areli Yousif Hemoglobin Ql (U) Negative Normal NEGATIVE [facility] Comment on above: Performed By: #### Sid RUR DRUGRPD ####[facility] Hygxganuqe[address] [place], [place] [address]Dr. Areli Yousif Ketones Ql (U) Negative Normal NEGATIVE [facility] Comment on above: Performed By: #### Sid RUJosé Miguel DRUGRPD ####[facility] Ihxqivuewr078[address] [place], [place] [address]Dr. Areli Yousif LEUKOCYTES Negative Normal NEGATIVE [facility] Comment on above: Performed By: #### Sid BARKER DRUGRPD ####[facility] Ahrvyajjvj9[address] [place], [place] [address]Dr. Areli Yousif Nitrite Ql (U) Negative Normal NEGATIVE [facility] Comment on above: Performed By: #### Sid BARKER DRUGRPD ####[facility] Hqalmewebk7927[address] [place], [place] [address]Dr. Areli Yousif pH (U) 6.5 [pH] Normal 5-9 [facility] Comment on above: Performed By: #### Sid BARKER DRUGRPD ####[facility] Lsduyxixjp58[address] [place], [place] [address]Dr. Areli Yousif SPEC GRAVITY 1.010 Normal 1.005-<=1.[address] [facility] Comment on above: Performed By: #### Sid RUJosé Miguel DRUGRPD ####[facility] Xvszkhnoxd57[address] [place], [place] [address]Dr. Areli Yousif UA PROTEIN Negative Normal NEGATIVE/ TRACE [facility] Comment on above: Performed By: #### Sid RUR DRUGRPD ####[facility] Qbmxwgvepa[address] [place], [place] [address]Dr. Areli Yousif UR MICRO IND NOT INDICATED Normal [facility] Comment on above: Performed By: #### E RUR, DRUGRPD ####[facility] H[address]wwsuuak[address] [place] [address]Dr. Areli Yousif Urobilinogen Qn (U) 0.2 {Alyssia'U}/dL Normal 0.2 - 1. 0 [facility] Comment on above: Performed By: #### Sid RUJosé Miguel, DRUGRPD ####[facility] Rovfalgxlf9[address] [place] [address]Dr. Areli Yousif POINT OF CARE GLUCOSEon 12-03 Glucose [Mass/Vol] 266 mg/dL Critically high 74-106 [facility] Comment on above: Performed By: #### P OCGLUC ####[facility] Qimnrwmxgk13[address] [place], [place] [address]Dr. Areli Yousif POTASSIUMon 12-17-2022 Potassium [Moles/Vol] 5.3 mmol/L Critically high 3.5-5.1 [facility] Comment on above: Performed By: #### K ####[facility] Fvbaslwysp70[address] [place], [place] [address]Dr. Areli Yousif PROF 14(COMP METB)on 023 Albumin [Mass/Vol] 3.0 g/dL Critically low 3.4-5.0 [facility] Comment on above: Performed By: #### C MADM, CMP, BNP ####[facility] Doitcgtwne8187 [place] [address]Dr. Areli Yosuif Albumin/Globulin [Mass ratio] 0.8 {ratio} Normal [facility] Comment on above: Performed By: #### C MADM, CMP, BNP ####[facility] Odhjzmwtjn7683 [place] [address]Dr. Areli Yousif ALP [Catalytic activity/Vol] 94 U/L Normal 46-116 [facility] Comment on above: Performed By: #### C MADM, CMP, BNP ####[facility] Kaavuupkeo6924 [place] [address]Dr. Areli Yousif ALT [Catalytic activity/Vol] 27 U/L Normal 16-63 [facility] Comment on above: Performed By: #### C MADM, CMP, BNP ####[facility] Xfmflhtnws5812 [place] [address]Dr. Areli Yousif Anion gap [Moles/Vol] 8.6 mmol/L Normal [facility] Comment on above: Performed By: #### C MADM, CMP, BNP ####[facility] Bdqpufupbz3539 [place] [address]Dr. Areli Yousif AST [Catalytic activity/Vol] 15 U/L Normal 15-37 [facility] Comment on above: Performed By: #### C MADM, CMP, BNP ####[facility] Efvcbbducy9525 [place] [address]Dr. Areli Yousif Bilirubin [Mass/Vol] 0.2 mg/dL Normal 0.2-1.0 [facility] Comment on above: Performed By: #### C MADM, CMP, BNP ####[facility] Uuakffbdqe4403 [place] [address]Dr. Areli Yousif Calcium [Mass/Vol] 9.0 mg/dL Normal 8.5-10.1 [facility] Comment on above: Performed By: #### C MADM, CMP, BNP ####[facility] Zitweaeppe[address] [place], [place] [address]Dr. Areli Yousif Chloride [Moles/Vol] 101 mmol/L Normal 98-107 [facility] Comment on above: Performed By: #### C MADM, CMP, BNP ####[facility] Ouhncczpvy5[address] [place] [address]Dr. Areli Yousif CO2 [Moles/Vol] 30.0 mmol/L Normal 21.0-32.0 [facility] Comment on above: Performed By: #### C MADM, CMP, BNP ####[facility] Hfefczszco9795 [place] [address]Dr. Areli Yousif Creatinine [Mass/Vol] 1.25 mg/dL Normal 0.70-1.30 [facility] Comment on above: Performed By: #### C MADM, CMP, BNP ####[facility] Tbjujbwkkq[address] [place], [place] [address]Dr. Areli Yousif EGFR-AF CZECH >60 Normal >=60 [facility] Comment on above: Performed By: #### C MADM, CMP, BNP ####[facility] Dfzpttgicr8828 [place] [address]Dr. Areli Yousif EGFR-NON AF CZECH 57 mL/min/1.73m2 Critically low >=60 [facility] Comment on above: Performed By: #### C MADM, CMP, BNP ####[facility] Zjonqalsjf7213 [place] [address]Dr. Areli Yousif Globulin (S) [Mass/Vol] 3.9 g/dL Normal [facility] Comment on above: Performed By: #### C MADM, CMP, BNP ####[facility] Guzeghxmfz90[address] [place], [place] [address]Dr. Areli Yousif Glucose [Mass/Vol] 273 mg/dL Critically high 74-106 [facility] Comment on above: Performed By: #### C MADM, CMP, BNP ####[facility] Jcwqcitwmm[address] [place], [place] [address]Dr. Areli Yousif Potassium [Moles/Vol] 5.6 mmol/L Critically high 3.5-5.1 [facility] Comment on above: Performed By: #### C MADM, CMP, BNP ####[facility] Nsnahbpuyk9115 [place] [address]Dr. Areli Yousif Protein [Mass/Vol] 6.9 g/dL Normal 6.4-8.2 [facility] Comment on above: Performed By: #### C MADM, CMP, BNP ####[facility] Ldetrevxrq3331 [place] [address]Dr. Areli Yousif Sodium [Moles/Vol] 134 mmol/L Critically low 136-145 [facility] Comment on above: Performed By: #### C MADM, CMP, BNP ####[facility] Mtrchbmoca9138 [place] [address]Dr. Areli Yousif Urea nitrogen [Mass/Vol] 40.0 mg/dL Critically high 7.0-18.0 [facility] Comment on above: Performed By: #### C MADM, CMP, BNP ####[facility] Okuxiiiqvc6197 [place] [address]Dr. Areli Yousif Urea nitrogen/Creatinine [Mass ratio] 32.0 mg/mg Normal [facility] Comment on above: Performed By: #### C MADM, CMP, BNP ####[facility] Oijqlzwvqg4934 [place] [address]Dr. Areli Yousif PROTIMEon 12-17-2022 INR Coag (PPP) [Relative time] 1.02 {INR} Normal [facility] Comment on above: Performed By: #### P T, PTT ####[facility] Qxphpnhnku023[address] [place], [place] [address]Dr. Areli Yousif INR GUIDELINES SEE BELOW Normal [facility] Comment on above: Result Comment: LANDON RED INR: 2.0 - 3.0 CONDITIONS NOT LISTED BELOW 2.5 - 3.5 FOR PROSTHETIC HEART VALVE REPLACEMENT 2.5 - 3.5 RECURRENT THROMBOSIS Performed By: #### P T, PTT ####[facility] Osyvhgyprt[address] [place], [place] [address]Dr. Areli Yousif PT Coag (PPP) [Time] 10.8 s Normal 9.0-11.6 [facility] Comment on above: Performed By: #### P T, PTT ####[facility] Yccqxdygpu4088 [place] [address]Dr. Areli Yousif PTTon 12-17-2022 aPTT Coag (Bld) [Time] 27.3 s Normal 22.3-36.2 [facility] Comment on above: Performed By: #### P T, PTT ####[facility] Dnafkfnzbt[address] [place], [place] [address]Dr. Areli Yousif XR CHEST 1 Von 12-17-2022 XR CHEST [address] [facility] XR HIP LT 2 3V W PELVISon XR HIP LT 2 3V W PELVIS Normal [facility] GLYCOHEMOGLOBIN A1Con 2022 ADA RECOMMENDATION SEE BELOW Normal [facility] Comment on above: Result Comment: ADA RECOMMENDED LIMIT 4.0 - 6.0 ADA THERAPEUTIC TARGET < 7.0 ACTION SUGGESTED > 7.0 Performed By: #### A 1C ####[facility] Ktkjyskggq5059 [place] [address]DrDenae Yousif Glucose [Mass/Vol] 186 mg/dL Normal [facility] Comment on above: Performed By: #### A 1C ####[facility] Lknwnyassv140[address] [place], [place] [address]DrDenae Yousif HbA1c (Bld) [Mass fraction] 8.1 % Critically high 4.5-6.2 [facility] Comment on above: Performed By: #### A 1C ####[facility] Hyvfqsqeph43[address] [place], [place] [address]DrDenae Yousif CBC AUTO DIFFon 11-24-2022 BASO # 0.0 103/ul Normal 0.0-0.1 [facility] Comment on above: Performed By: #### C BC ####[facility] Cdpmyxbhcr[address] [place], [place] [address]DrDenae Yousif Basophils/100 WBC (Bld) 0.1 % Critically low 0.2-2.0 [facility] Comment on above: Performed By: #### C BC ####[facility] Dxiiwfdiiz55[address] [place], [place] [address]DrDenae Yousif EO # 0.0 103/ul Normal 0.0-0.7 [facility] Comment on above: Performed By: #### C BC ####[facility] Jgrpyjhscd6[address] [place], [place] [address]DrDenae Yousif Eosinophils/100 WBC (Bld) 0.0 % Critically low 0.9-7.0 [facility] Comment on above: Performed By: #### C BC ####[facility] Lqyzxibevz98[address] [place], [place] [address]DrDenae Yousif Erythrocyte distribution width (RBC) [Ratio] 12.8 % Normal 11.0-15.0 [facility] Comment on above: Performed By: #### C BC ####[facility] Sfhhwqzzju54[address] [place], [place] [address]DrDenae Yousif Hematocrit (Bld) [Volume fraction] 32.3 % Critically low 42.0-54.0 [facility] Comment on above: Performed By: #### C BC ####[facility] Kciuhriqjl1723 [place] [address]Dr. Areli Yousif Hemoglobin (Bld) [Mass/Vol] 10.5 g/dL Critically low 14.0-18.0 [facility] Comment on above: Performed By: #### C BC ####[facility] Rdzfsosfun[address] [place], [place] [address]Dr. Areli Yousif IG # 0.03 10e3/ul Normal 0.00-0.03 [facility] Comment on above: Performed By: #### C BC ####[facility] Hsywpadeyi[address] [place], [place] [address]Dr. Areli Yousif IG % 0.4 % Normal 0.0-0.5 [facility] Comment on above: Performed By: #### C BC ####[facility] Slbiyelqtm[address] [place], [place] [address]Dr. Areli Yousif LYMPH # 1.3 103/ul Normal 1.2-3.8 [facility] Comment on above: Performed By: #### C BC ####[facility] [id number] [place], [place] [address]Dr. Areli Yousif Lymphocytes/100 WBC (Bld) 15.7 % Critically low 20.5-60.0 [facility] Comment on above: Performed By: #### C BC ####[facility] [id number] [place], [place] [address]Dr. Areli Yousif MANUAL DIFF REQ NO Normal [facility] Comment on above: Performed By: #### C BC ####[facility] [id number] [place], [place] [address]Dr. Areli Yousif MCH (RBC) [Entitic mass] 28.5 pg Normal 25.9-34.0 [facility] Comment on above: Performed By: #### C BC ####[facility] [id number] [place], [place] [address]Dr. Areli Yousif MCHC (RBC) [Mass/Vol] 32.5 g/dL Normal 29.9-35.2 [facility] Comment on above: Performed By: #### C BC ####[facility] [id number] [place], [place] [address]Dr. Areli Yousif MCV (RBC) [Entitic vol] 87.5 fL Normal 80.0-94.0 [facility] Comment on above: Performed By: #### C BC ####[facility] [id number] [place], [place] [address]Dr. Areli Yousif MONO # 0.2 103/ul Critically low 0.3-0.8 [facility] Comment on above: Performed By: #### C BC ####[facility] [id number] [place], [place] [address]Dr. Areli Yousif Monocytes/100 WBC (Bld) 2.9 % Normal 1.7-12.0 [facility] Comment on above: Performed By: #### C BC ####[facility] Abkymbnwqj[address] [place], [place] [address]Dr. Areli Yousif NEUT # 6.4 103/ul Normal 1.4-6.5 [facility] Comment on above: Performed By: #### C BC ####[facility] Vhrrvzexhk[address] [place], [place] [address]Dr. Areli Yousif Neutrophils/100 WBC (Bld) 80.9 % Critically high 43.0-75.0 [facility] Comment on above: Performed By: #### C BC ####[facility] Wljidzrake8[address] [place], [place] [address]Dr. Areli Yousif Platelet mean volume (Bld) [Entitic vol] 10.3 fL Normal 9.5-13.5 [facility] Comment on above: Performed By: #### C BC ####[facility] Kuzximiqdp8300[address] [place], [place] [address]Dr. Areli Yousif PLT 315 103/ul Normal 150-450 [facility] Comment on above: Performed By: #### C BC ####[facility] Eckqasxcae5036[address] [place], [place] [address]Dr. Areli Yousif RBC 3.69 106/ul Critically low 4.70-6.10 [facility] Comment on above: Performed By: #### C BC ####[facility] Cwztryompd58[address] [place] [address]Dr. Areli Benja WBC 8.0 103/ul Normal 4.0-11.0 [facility] Comment on above: Performed By: #### C BC ####[facility] Bkadrsbsju74[address] [place] [address]Dr. Areli Benja POINT OF CARE GLUCOSEon 11-06 0-2022 Glucose [Mass/Vol] 386 mg/dL Critically high 74-106 [facility] Comment on above: Performed By: #### P OCGLUC ####[facility] Tldfmnqajv446[address] [place], [place] [address]Dr. Areli Yousfi Glucose [Mass/Vol] 246 mg/dL Critically high 74-106 [facility] Comment on above: Performed By: #### P OCGLUC ####[facility] Qmvydgyvjk3220 [place] [address]Dr. Areli Yousif PROF 14(COMP METB)on 023 Albumin [Mass/Vol] 2.4 g/dL Critically low 3.4-5.0 [facility] Comment on above: Performed By: #### C MP ####[facility] Zfxxabhjpk77[address] [place] [address]Dr. Areli Yousif Albumin/Globulin [Mass ratio] 0.7 {ratio} Normal [facility] Comment on above: Performed By: #### C MP ####[facility] Zhxnwegskg1655 [place] [address]Dr. Areli Yousif ALP [Catalytic activity/Vol] 71 U/L Normal 46-116 [facility] Comment on above: Performed By: #### C MP ####[facility] Hojkwnbude0157 [place] [address]Dr. Areli Yousif ALT [Catalytic activity/Vol] 20 U/L Normal 16-63 [facility] Comment on above: Performed By: #### C MP ####[facility] Uawnxilqpu2450 [place] [address]Dr. Areli Yousif Anion gap [Moles/Vol] 14.2 mmol/L Normal [facility] Comment on above: Performed By: #### C MP ####[facility] Hqyqvmeisd94[address] [place], [place] [address]Dr. Areli Yousif AST [Catalytic activity/Vol] 12 U/L Critically low 15-37 [facility] Comment on above: Performed By: #### C MP ####[facility] Smtyrnfxiv3247[address] [place], [place] [address]Dr. Areli Benja Bilirubin [Mass/Vol] 0.2 mg/dL Normal 0.2-1.0 [facility] Comment on above: Performed By: #### C MP ####[facility] Zwbzevtarc459[address] [place], [place] [address]Dr. Areli Benja Calcium [Mass/Vol] 8.8 mg/dL Normal 8.5-10.1 [facility] Comment on above: Performed By: #### C MP ####[facility] Dffeappyyq107[address] [place], [place] [address]Dr. Tabbytulio Yousif Chloride [Moles/Vol] 102 mmol/L Normal 98-107 [facility] Comment on above: Performed By: #### C MP ####[facility] Qeyeuvqocr067[address] [place], [place] [address]Dr. Areli Benja CO2 [Moles/Vol] 25.6 mmol/L Normal 21.0-32.0 [facility] Comment on above: Performed By: #### C MP ####[facility] Chycdnjrej520[address] [place], [place] [address]Dr. Areli Yousif Creatinine [Mass/Vol] 0.98 mg/dL Normal 0.70-1.30 [facility] Comment on above: Performed By: #### C MP ####[facility] Mplsjlvmiv4528[address] [place], [place] [address]Dr. Tabbytulio Benja EGFR-AF CZECH >60 Normal >=60 [facility] Comment on above: Performed By: #### C MP ####[facility] Sejtiovgge660[address] [place], [place] [address]Dr. Areli Yousif EGFR-NON AF CZECH >60 Normal >=60 [facility] Comment on above: Performed By: #### C MP ####[facility] Cdhvwepomf4092 [place] [address]Dr. Areli Yousif Globulin (S) [Mass/Vol] 3.6 g/dL Normal [facility] Comment on above: Performed By: #### C MP ####[facility] Mcifgmmtdp9918 [place] [address]Dr. Areli Yousif Glucose [Mass/Vol] 236 mg/dL Critically high 74-106 [facility] Comment on above: Performed By: #### C MP ####[facility] Wmxuwpkdna8029[address] [place], [place] [address]Dr. Areli Yousif Potassium [Moles/Vol] 3.8 mmol/L Normal 3.5-5.1 [facility] Comment on above: Performed By: #### C MP ####[facility] Knsaotdlaq383[address] [place], [place] [address]Dr. Areli Yousif Protein [Mass/Vol] 6.0 g/dL Critically low 6.4-8.2 Th [facility] Comment on above: Performed By: #### C MP ####[facility] Vhisbxcwxi850[address] [place], [place] [address]Dr. Areli Yousif Sodium [Moles/Vol] 138 mmol/L Normal 136-145 [facility] Comment on above: Performed By: #### C MP ####[facility] Bktyntaoud2516[address] [place], [place] [address]Dr. Areli Yousif Urea nitrogen [Mass/Vol] 29.0 mg/dL Critically high 7.0-18.0 [facility] Comment on above: Performed By: #### C MP ####[facility] Utwpbcqlcp386[address] [place], [place] [address]Dr. Areli Yousif Urea nitrogen/Creatinine [Mass ratio] 29.6 mg/mg Normal [facility] Comment on above: Performed By: #### C MP ####[facility] Gbrcqykclu9329[address] [place], [place] [address]Dr. Areli Yousif CBC AUTO DIFFon 11-23-2022 BASO # 0.0 103/ul Normal 0.0-0.1 [facility] Comment on above: Performed By: #### C BC ####[facility] Mzdvvzsrfg404[address] [place], [place] [address]Dr. Areli Yousif Basophils/100 WBC (Bld) 0.1 % Critically low 0.2-2.0 [facility] Comment on above: Performed By: #### C BC ####[facility] Uheujbdqtr9589[address] [place], [place] [address]Dr. Tabbytulio Yousif EO # 0.0 103/ul Normal 0.0-0.7 [facility] Comment on above: Performed By: #### C BC ####[facility] Nxhoqpeocp697[address] [place], [place] [address]Dr. Areli Benja Eosinophils/100 WBC (Bld) 0.0 % Critically low 0.9-7.0 [facility] Comment on above: Performed By: #### C BC ####[facility] Zlscbwiwfx276[address] [place], [place] [address]Dr. Areli Yousif Erythrocyte distribution width (RBC) [Ratio] 13.2 % Normal 11.0-15.0 [facility] Comment on above: Performed By: #### C BC ####[facility] Igbxoaeaym685[address] [place], [place] [address]Dr. Areli Yousif Hematocrit (Bld) [Volume fraction] 31.2 % Critically low 42.0-54.0 [facility] Comment on above: Performed By: #### C BC ####[facility] Edfzhvsktm3630[address] [place], [place] [address]Dr. Tabbytulio Yousif Hemoglobin (Bld) [Mass/Vol] 10.0 g/dL Critically low 14.0-18.0 [facility] Comment on above: Performed By: #### C BC ####[facility] Ofoethpprv3415[address] [place], [place] [address]Dr. Areli Yousif IG # 0.06 10e3/ul Critically high 0.00-0.03 [facility] Comment on above: Performed By: #### C BC ####[facility] Zykanqvfhn4[address] [place] [address]Dr. Areli Yousif IG % 0.5 % Normal 0.0-0.5 [facility] Comment on above: Performed By: #### C BC ####[facility] Txnfqflnfp0154 [place] [address]Dr. Areli Yousif LYMPH # 2.1 103/ul Normal 1.2-3.8 [facility] Comment on above: Performed By: #### C BC ####[facility] Rapfokkaxx5673 [place] [address]Dr. Areli Yousif Lymphocytes/100 WBC (Bld) 16.9 % Critically low 20.5-60.0 [facility] Comment on above: Performed By: #### C BC ####[facility] Gsbbhvtdrv7985 [place] [address]Dr. Areli Yousif MANUAL DIFF REQ NO Normal [facility] Comment on above: Performed By: #### C BC ####[facility] Aqtvymyivy2846 [place] [address]Dr. Areli Benja MCH (RBC) [Entitic mass] 28.7 pg Normal 25.9-34.0 [facility] Comment on above: Performed By: #### C BC ####[facility] Xrbatncoxg55[address] [place], [place] [address]Dr. Areli Benja MCHC (RBC) [Mass/Vol] 32.1 g/dL Normal 29.9-35.2 [facility] Comment on above: Performed By: #### C BC ####[facility] Sgkrsvsiqx1849[address] [place], [place] [address]Dr. Areli Yousif MCV (RBC) [Entitic vol] 89.7 fL Normal 80.0-94.0 [facility] Comment on above: Performed By: #### C BC ####[facility] Rwvnwxnoez[address] [place], [place] [address]Dr. Areli Yousif MONO # 0.5 103/ul Normal 0.3-0.8 [facility] Comment on above: Performed By: #### C BC ####[facility] Qslhavnjav[address] [place], [place] [address]Dr. Areli Yousif Monocytes/100 WBC (Bld) 3.9 % Normal 1.7-12.0 [facility] Comment on above: Performed By: #### C BC ####[facility] Agqsjmcmrw6947 [place] [address]Dr. Areli Yousif NEUT # 9.9 103/ul Critically high 1.4-6.5 [facility] Comment on above: Performed By: #### C BC ####[facility] Ysoxfuwots0120 [place] [address]Dr. Areli Yousif Neutrophils/100 WBC (Bld) 78.6 % Critically high 43.0-75.0 [facility] Comment on above: Performed By: #### C BC ####[facility] Yhzdhwodlh5918 [place] [address]Dr. Areli Yousif Platelet mean volume (Bld) [Entitic vol] 10.1 fL Normal 9.5-13.5 [facility] Comment on above: Performed By: #### C BC ####[facility] Rwhitprcuc3520[address] [place], [place] [address]Dr. Areli Yousif PLT 289 103/ul Normal 150-450 [facility] Comment on above: Performed By: #### C BC ####[facility] Siggymgclu7119 [place] [address]Dr. Areli Yousif RBC 3.48 106/ul Critically low 4.70-6.10 [facility] Comment on above: Performed By: #### C BC ####[facility] Gkjkaijhpg4855 [place] [address]Dr. Areli Yousif WBC 12.6 103/ul Critically high 4.0-11.0 [facility] Comment on above: Performed By: #### C BC ####[facility] Gdiweminwb4150 [place] [address]Dr. Areli Yousif POINT OF CARE GLUCOSEon 11-05 Glucose [Mass/Vol] 277 mg/dL Critically high 74-106 [facility] Comment on above: Performed By: #### P OCGLUC ####[facility] Dulyofkxjz0206 [place] [address]Dr. Areli Yousif Glucose [Mass/Vol] 355 mg/dL Critically high 74-106 [facility] Comment on above: Performed By: #### P OCGLUC ####[facility] Tlmzwsgmfd369[address] [place], [place] [address]Dr. Areli Yousif Glucose [Mass/Vol] 252 mg/dL Critically high 74-106 [facility] Comment on above: Performed By: #### P OCGLUC ####[facility] Sebgkqshfm2622[address] [place], [place] [address]Dr. Areli Yousif PROF 14(COMP METB)on 023 Albumin [Mass/Vol] 2.3 g/dL Critically low 3.4-5.0 [facility] Comment on above: Performed By: #### C MP ####[facility] Jhjwlgrgwn550[address] [place], [place] [address]Dr. Areli Yousif Albumin/Globulin [Mass ratio] 0.7 {ratio} Normal [facility] Comment on above: Performed By: #### C MP ####[facility] Qmrexvilxk3413[address] [place], [place] [address]Dr. Areli Yousif ALP [Catalytic activity/Vol] 69 U/L Normal 46-116 [facility] Comment on above: Performed By: #### C MP ####[facility] Yndopgkqan847[address] [place], [place] [address]Dr. Areli Yousif ALT [Catalytic activity/Vol] 17 U/L Normal 16-63 [facility] Comment on above: Performed By: #### C MP ####[facility] Pbclomxypy3900[address] [place], [place] [address]Dr. Areli Yousif Anion gap [Moles/Vol] 13.8 mmol/L Normal [facility] Comment on above: Performed By: #### C MP ####[facility] Fkrpfsegsz299[address] [place], [place] [address]Dr. Areli Yousif AST [Catalytic activity/Vol] 13 U/L Critically low 15-37 [facility] Comment on above: Performed By: #### C MP ####[facility] Xwcrvhduhi6840 [place] [address]Dr. Areli Yousif Bilirubin [Mass/Vol] 0.2 mg/dL Normal 0.2-1.0 [facility] Comment on above: Performed By: #### C MP ####[facility] Jpckkcjhqx4877 [place] [address]Dr. Areli Yousif Calcium [Mass/Vol] 8.7 mg/dL Normal 8.5-10.1 [facility] Comment on above: Performed By: #### C MP ####[facility] Vpacmizxxh8501[address] [place], [place] [address]Dr. Areli Yousif Chloride [Moles/Vol] 105 mmol/L Normal 98-107 [facility] Comment on above: Performed By: #### C MP ####[facility] Vlrewwrugo2369[address] [place], [place] [address]Dr. Areli Yousif CO2 [Moles/Vol] 24.8 mmol/L Normal 21.0-32.0 [facility] Comment on above: Performed By: #### C MP ####[facility] Yafuvbeyyw217[address] [place], [place] [address]Dr. Areli Benja Creatinine [Mass/Vol] 1.05 mg/dL Normal 0.70-1.30 [facility] Comment on above: Performed By: #### C MP ####[facility] Mmmaoegkok205[address] [place], [place] [address]Dr. Areli Benja EGFR-AF CZECH >60 Normal >=60 [facility] Comment on above: Performed By: #### C MP ####[facility] Gkdmrfxjdt767[address] [place], [place] [address]Dr. Areli Yousif EGFR-NON AF CZECH >60 Normal >=60 [facility] Comment on above: Performed By: #### C MP ####[facility] Swndevyhcc2867[address] [place], [place] [address]Dr. Areli Yousif Globulin (S) [Mass/Vol] 3.5 g/dL Normal [facility] Comment on above: Performed By: #### C MP ####[facility] Xxdlafdnda3422[address] [place], [place] [address]Dr. Areli Yousif Glucose [Mass/Vol] 215 mg/dL Critically high 74-106 T [facility] Comment on above: Performed By: #### C MP ####[facility] Qulbipyvkd8211 [place] [address]Dr. Areli Yousif Potassium [Moles/Vol] 3.6 mmol/L Normal 3.5-5.1 [facility] Comment on above: Performed By: #### C MP ####[facility] Qqpddoeart114[address] [place], [place] [address]Dr. Areli Yousif Protein [Mass/Vol] 5.8 g/dL Critically low 6.4-8.2 Th [facility] Comment on above: Performed By: #### C MP ####[facility] Yfkprrnzaz547[address] [place], [place] [address]Dr. Areli Yousif Sodium [Moles/Vol] 140 mmol/L Normal 136-145 [facility] Comment on above: Performed By: #### C MP ####[facility] Bdkyihesev3437[address] [place], [place] [address]Dr. Areli Yousif Urea nitrogen [Mass/Vol] 31.0 mg/dL Critically high 7.0-18.0 [facility] Comment on above: Performed By: #### C MP ####[facility] Aksarohoys745[address] [place], [place] [address]Dr. Areli Yousif Urea nitrogen/Creatinine [Mass ratio] 29.5 mg/mg Normal [facility] Comment on above: Performed By: #### C MP ####[facility] Zqxuznpgeo0734[address] [place], [place] [address]Dr. Areli Yousif CBC AUTO DIFFon 11-22-2022 BASO # 0.0 103/ul Normal 0.0-0.1 [facility] Comment on above: Performed By: #### C BC ####[facility] Oszxwwmbxd264[address] [place], [place] [address]Dr. Areli Yousif Basophils/100 WBC (Bld) 0.1 % Critically low 0.2-2.0 [facility] Comment on above: Performed By: #### C BC ####[facility] Ptbptygfpr3335 [place] [address]Dr. Areli Yousif EO # 0.0 103/ul Normal 0.0-0.7 [facility] Comment on above: Performed By: #### C BC ####[facility] Ahxsgslbps0187[address] [place], [place] [address]Dr. Areli Yousif Eosinophils/100 WBC (Bld) 0.1 % Critically low 0.9-7.0 [facility] Comment on above: Performed By: #### C BC ####[facility] Qttuwbohna728[address] [place], [place] [address]Dr. Areli Yousif Erythrocyte distribution width (RBC) [Ratio] 13.2 % Normal 11.0-15.0 [facility] Comment on above: Performed By: #### C BC ####[facility] Zgnbixescw9633[address] [place], [place] [address]Dr. Areli Yousif Hematocrit (Bld) [Volume fraction] 31.1 % Critically low 42.0-54.0 [facility] Comment on above: Performed By: #### C BC ####[facility] Myjkfmzwrw6047[address] [place], [place] [address]Dr. Areli Yousif Hemoglobin (Bld) [Mass/Vol] 10.0 g/dL Critically low 14.0-18.0 [facility] Comment on above: Performed By: #### C BC ####[facility] Uuxencplcb560[address] [place], [place] [address]Dr. Areli Yousif IG # 0.07 10e3/ul Critically high 0.00-0.03 [facility] Comment on above: Performed By: #### C BC ####[facility] Qyoermvwlr8916[address] [place], [place] [address]Dr. Areli Yousif IG % 0.5 % Normal 0.0-0.5 [facility] Comment on above: Performed By: #### C BC ####[facility] Nitklcpbfb676[address] [place], [place] [address]Dr. Tabbytulio Yousif LYMPH # 1.3 103/ul Normal 1.2-3.8 [facility] Comment on above: Performed By: #### C BC ####[facility] Ugoaobtcpp1094 [place] [address]Dr. Areli Yousif Lymphocytes/100 WBC (Bld) 9.7 % Critically low 20.5-60.0 [facility] Comment on above: Performed By: #### C BC ####[facility] Urnksemate5240 [place] [address]Dr. Areli Benja MANUAL DIFF REQ NO Normal [facility] Comment on above: Performed By: #### C BC ####[facility] Aoihtsjovh3839 [place] [address]Dr. Areli Benja MCH (RBC) [Entitic mass] 29.1 pg Normal 25.9-34.0 [facility] Comment on above: Performed By: #### C BC ####[facility] Fhifguorjp5664[address] [place], [place] [address]Dr. Areli Benja MCHC (RBC) [Mass/Vol] 32.2 g/dL Normal 29.9-35.2 [facility] Comment on above: Performed By: #### C BC ####[facility] Mgwvtijvpw8103 [place] [address]Dr. Areli Benja MCV (RBC) [Entitic vol] 90.4 fL Normal 80.0-94.0 [facility] Comment on above: Performed By: #### C BC ####[facility] Qzgsxsrhlp310[address] [place], [place] [address]Dr. Tabbytulio Benja MONO # 0.4 103/ul Normal 0.3-0.8 [facility] Comment on above: Performed By: #### C BC ####[facility] Grfgolgjqf1921 [place] [address]Dr. Tabbytulio Yousif Monocytes/100 WBC (Bld) 2.9 % Normal 1.7-12.0 [facility] Comment on above: Performed By: #### C BC ####[facility] Wjwsxfuhie[address] [place], [place] [address]Dr. Tabbytulio Benja NEUT # 11.7 103/ul Critically high 1.4-6.5 [facility] Comment on above: Performed By: #### C BC ####[facility] Wekmryjwtq1728 [place] [address]Dr. Areli Yousif Neutrophils/100 WBC (Bld) 86.7 % Critically high 43.0-75.0 [facility] Comment on above: Performed By: #### C BC ####[facility] Bnqmtgqloc1605 [place] [address]Dr. Areli Yousif Platelet mean volume (Bld) [Entitic vol] 10.4 fL Normal 9.5-13.5 [facility] Comment on above: Performed By: #### C BC ####[facility] Qgeyhgajde6366 [place] [address]Dr. Areli Yousif PLT 263 103/ul Normal 150-450 [facility] Comment on above: Performed By: #### C BC ####[facility] Oacmbvrnkj3592 [place] [address]Dr. Areli Yousif RBC 3.44 106/ul Critically low 4.70-6.10 [facility] Comment on above: Performed By: #### C BC ####[facility] Sagoubrqnr4227 [place] [address]Dr. Areli Yousif WBC 13.5 103/ul Critically high 4.0-11.0 [facility] Comment on above: Performed By: #### C BC ####[facility] Yzeszdefkx5269 [place] [address]Dr. Areli Yousif POINT OF CARE GLUCOSEon 11-05 Glucose [Mass/Vol] 239 mg/dL Critically high 74-106 [facility] Comment on above: Performed By: #### P OCGLUC ####[facility] Xmujrihbyf7491 [place] [address]Dr. Areli Yousif Glucose [Mass/Vol] 242 mg/dL Critically high 74-106 [facility] Comment on above: Performed By: #### P OCGLUC ####[facility] Wqhcxksxbe0453 [place] [address]Dr. Areli Yousif Glucose [Mass/Vol] 231 mg/dL Critically high 74-106 [facility] Comment on above: Performed By: #### P OCGLUC ####[facility] Ootgpmdmyy0670 [place] [address]Dr. Areli Yousif Glucose [Mass/Vol] 203 mg/dL Critically high 74-106 T [facility] Comment on above: Performed By: #### P OCGLUC ####[facility] Wnbqunymlo2981 [place] [address]Dr. Areli Yousif PROF 14(COMP METB)on 023 Albumin [Mass/Vol] 2.2 g/dL Critically low 3.4-5.0 [facility] Comment on above: Performed By: #### C MP ####[facility] Btmmoynvra1145 [place] [address]Dr. Areli Yousif Albumin/Globulin [Mass ratio] 0.6 {ratio} Normal [facility] Comment on above: Performed By: #### C MP ####[facility] Plpamcjwpl29[address] [place], [place] [address]Dr. Areli Yousif ALP [Catalytic activity/Vol] 76 U/L Normal 46-116 [facility] Comment on above: Performed By: #### C MP ####[facility] Amvchmgnnh9514 [place] [address]Dr. Areli Yousif ALT [Catalytic activity/Vol] 20 U/L Normal 16-63 [facility] Comment on above: Performed By: #### C MP ####[facility] Ijykftmmhd5690 [place] [address]Dr. Areli Yousif Anion gap [Moles/Vol] 13.9 mmol/L Normal [facility] Comment on above: Performed By: #### C MP ####[facility] Zxqzvtgxsb203[address] [place], [place] [address]Dr. Areli Yousif AST [Catalytic activity/Vol] 14 U/L Critically low 15-37 [facility] Comment on above: Performed By: #### C MP ####[facility] Knpmaubgpn924[address] [place], [place] [address]Dr. Areli Yousif Bilirubin [Mass/Vol] 0.2 mg/dL Normal 0.2-1.0 [facility] Comment on above: Performed By: #### C MP ####[facility] Npnoyftawo1826 [place] [address]Dr. Areli Yousif Calcium [Mass/Vol] 8.6 mg/dL Normal 8.5-10.1 [facility] Comment on above: Performed By: #### C MP ####[facility] Bxlbvuumsi7982 [place] [address]Dr. Areli Yousif Chloride [Moles/Vol] 106 mmol/L Normal 98-107 [facility] Comment on above: Performed By: #### C MP ####[facility] Jkkufypwoq6750 [place] [address]Dr. Areli Yousif CO2 [Moles/Vol] 24.3 mmol/L Normal 21.0-32.0 [facility] Comment on above: Performed By: #### C MP ####[facility] Szvwketvml4550 [place] [address]Dr. Areli Yousif Creatinine [Mass/Vol] 1.24 mg/dL Normal 0.70-1.30 [facility] Comment on above: Performed By: #### C MP ####[facility] Quopjhuntk2803 [place] [address]Dr. Areli Yousif EGFR-AF CZECH >60 Normal >=60 [facility] Comment on above: Performed By: #### C MP ####[facility] Slcgveihld1521 [place] [address]Dr. Areli Yousif EGFR-NON AF CZECH 58 mL/min/1.73m2 Critically low >=60 [facility] Comment on above: Performed By: #### C MP ####[facility] Wprzedqhvd5381 [place] [address]Dr. Areli Yousif Globulin (S) [Mass/Vol] 3.6 g/dL Normal [facility] Comment on above: Performed By: #### C MP ####[facility] Snranlhbom2135 [place] [address]Dr. Areli Yousif Glucose [Mass/Vol] 208 mg/dL Critically high 74-106 T [facility] Comment on above: Performed By: #### C MP ####[facility] Ddgptgmhwq1143 [place] [address]Dr. Areli Benja Potassium [Moles/Vol] 4.2 mmol/L Normal 3.5-5.1 [facility] Comment on above: Performed By: #### C MP ####[facility] Qirrzwilwt4783 [place] [address]Dr. Arlei Yousif Protein [Mass/Vol] 5.8 g/dL Critically low 6.4-8.2 [facility] Comment on above: Performed By: #### C MP ####[facility] Aiqjwpkplk4241 [place] [address]Dr. Areli Benja Sodium [Moles/Vol] 140 mmol/L Normal 136-145 [facility] Comment on above: Performed By: #### C MP ####[facility] Ijrtektrdp1727 [place] [address]Dr. Tabbytulio Yousif Urea nitrogen [Mass/Vol] 33.0 mg/dL Critically high 7.0-18.0 [facility] Comment on above: Performed By: #### C MP ####[facility] Slpmaxtjvl5083 [place] [address]Dr. Areli Benja Urea nitrogen/Creatinine [Mass ratio] 26.6 mg/mg Normal [facility] Comment on above: Performed By: #### C MP ####[facility] Wxzdezkmdi3762 [place] [address]Dr. Areli Benja XR CHEST 1 Von 11-22-2022 XR CHEST 1 V Normal [facility] CBC AUTO DIFFon 11-21-2022 BASO # 0.0 103/ul Normal 0.0-0.1 [facility] Comment on above: Performed By: #### C BC ####[facility] [id number] [address]Dr. Areli Yousif Basophils/100 WBC (Bld) 0.2 % Normal 0.2-2.0 [facility] Comment on above: Performed By: #### C BC ####[facility] [id number] [address]Dr. Areli Yousif EO # 1.7 103/ul Critically high 0.0-0.7 [facility] Comment on above: Performed By: #### C BC ####[facility] [id number] [address]Dr. Areli Yousif Eosinophils/100 WBC (Bld) 10.2 % Critically high 0.9-7.[address] St[address] [facility] Comment on above: Performed By: #### C BC ####[facility] Fwztmuoawz6633 [place] [address]Dr. Areli Yousif Erythrocyte distribution width (RBC) [Ratio] 13.3 % Normal 11.0-15.0 [facility] Comment on above: Performed By: #### C BC ####[facility] Fdrqhvjbvi8[address] [place], [place] [address]Dr. Areli Yousif Hematocrit (Bld) [Volume fraction] 31.3 % Critically low 42.0-54.0 [facility] Comment on above: Performed By: #### C BC ####[facility] Qrdirgopnu8[address] [place], [place] [address]Dr. Areil Yousif Hemoglobin (Bld) [Mass/Vol] 10.4 g/dL Critically low 14.0-18.0 [facility] Comment on above: Performed By: #### C BC ####[facility] Dptfqwwjfl[address] [place], [place] [address]Dr. Areli Yousif IG # 0.14 10e3/ul Critically high 0.00-0.03 [facility] Comment on above: Performed By: #### C BC ####[facility] Tajxaugzpr9[address] [place], [place] [address]Dr. Areli Yousif IG % 0.9 % Critically high 0.0-0.5 [facility] Comment on above: Performed By: #### C BC ####[facility] Ztcriczdnr364[address] [place], [place] [address]Dr. Areli Yousif LYMPH # 1.8 103/ul Normal 1.2-3.8 [facility] Comment on above: Performed By: #### C BC ####[facility] Ttgzracbgb3235[address] [place], [place] [address]Dr. Areli Yousif Lymphocytes/100 WBC (Bld) 11.0 % Critically low 20.5-60.0 [facility] Comment on above: Performed By: #### C BC ####[facility] Ryemeaedpk9097 [place] [address]Dr. Areli Yousif MANUAL DIFF REQ NO Normal [facility] Comment on above: Performed By: #### C BC ####[facility] Ymidirariq7147 [place] [id number]. Areli Yousif MCH (RBC) [Entitic mass] 29.5 pg Normal 25.9-34.0 [facility] Comment on above: Performed By: #### C BC ####[facility] Himamogpml0321 [place] [address]Dr. Areli Yousif MCHC (RBC) [Mass/Vol] 33.2 g/dL Normal 29.9-35.2 [facility] Comment on above: Performed By: #### C BC ####[facility] Xpxjkmmnfr5575[address] [place], [place] [address]Dr. Areli Yousif MCV (RBC) [Entitic vol] 88.9 fL Normal 80.0-94.0 [facility] Comment on above: Performed By: #### C BC ####[facility] Nttcpmthnr[address] [place], [place] [address]DrDenae Yousif MONO # 0.9 103/ul Critically high 0.3-0.8 [facility] Comment on above: Performed By: #### C BC ####[facility] Ebnsokurec177[address] [place], [place] [address]Dr. Areli Yousif Monocytes/100 WBC (Bld) 5.4 % Normal 1.7-12.0 [facility] Comment on above: Performed By: #### C BC ####[facility] Qolfhobmta4837[address] [place], [place] [address]DrDenae Yousif NEUT # 11.8 103/ul Critically high 1.4-6.5 [facility] Comment on above: Performed By: #### C BC ####[facility] Pnfudkmtbm[address] [place], [place] [address]DrDenae Yousif Neutrophils/100 WBC (Bld) 72.3 % Normal 43.0-75.0 [facility] Comment on above: Performed By: #### C BC ####[facility] Jburxqlcgb5379 [place] [address]Dr. Tabbytulio Benja Platelet mean volume (Bld) [Entitic vol] 10.4 fL Normal 9.5-13.5 [facility] Comment on above: Performed By: #### C BC ####[facility] Rytcqnbyqo6021 [place] [address]Dr. Tabbytulio Benja PLT 215 103/ul Normal 150-450 [facility] Comment on above: Performed By: #### C BC ####[facility] Jzugvabwpj2104 [place] [address]Dr. Areli Yousif RBC 3.52 106/ul Critically low 4.70-6.10 [facility] Comment on above: Performed By: #### C BC ####[facility] Nuqrbzgpxp2582 [place] [address]Dr. Areli Yousif WBC 16.3 103/ul Critically high 4.0-11.0 [facility] Comment on above: Performed By: #### C BC ####[facility] Rflodeznjm8078 [place] [address]DrDenae Yousif POINT OF CARE GLUCOSEon 11-05 Glucose [Mass/Vol] 274 mg/dL Critically high 74-106 [facility] Comment on above: Performed By: #### P OCGLUC ####[facility] Oyuotyyzyl996[address] [place], [place] [address]Dr. Areli Yousif Glucose [Mass/Vol] 197 mg/dL Critically high 74-106 [facility] Comment on above: Performed By: #### P OCGLUC ####[facility] Ixzwpvshcm3135 [place] [address]Dr. Areli Yousif Glucose [Mass/Vol] 135 mg/dL Critically high 74-106 [facility] Comment on above: Performed By: #### P OCGLUC ####[facility] Ercgfypkls034[address] [place], [place] [address]DrDenae Yousif PROF 14(COMP METB)on 023 Albumin [Mass/Vol] 2.1 g/dL Critically low 3.4-5.0 [facility] Comment on above: Performed By: #### C MP ####[facility] Yfmatvymri8761 [place] [address]Dr. Areli Yousif Albumin/Globulin [Mass ratio] 0.6 {ratio} Normal [facility] Comment on above: Performed By: #### C MP ####[facility] Cjodxblins9936[address] [place], [place] [address]Dr. Areli Yousif ALP [Catalytic activity/Vol] 74 U/L Normal 46-116 [facility] Comment on above: Performed By: #### C MP ####[facility] Ebfhvvahvo816[address] [place], [place] [address]Dr. Areli Yousif ALT [Catalytic activity/Vol] 23 U/L Normal 16-63 [facility] Comment on above: Performed By: #### C MP ####[facility] Nxppzavzjx4279[address] [place], [place] [address]Dr. Areli Yousif Anion gap [Moles/Vol] 13.2 mmol/L Normal [facility] Comment on above: Performed By: #### C MP ####[facility] Zgzurmrusk268[address] [place], [place] [address]Dr. Areli Yousif AST [Catalytic activity/Vol] 24 U/L Normal 15-37 [facility] Comment on above: Performed By: #### C MP ####[facility] Jrunhrnmtt6009[address] [place], [place] [address]Dr. Areli Yousif Bilirubin [Mass/Vol] 0.3 mg/dL Normal 0.2-1.0 [facility] Comment on above: Performed By: #### C MP ####[facility] Gdznrpnnqr5330[address] [place], [place] [address]Dr. Areli Yousif Calcium [Mass/Vol] 8.1 mg/dL Critically low 8.5-10.1 [facility] Comment on above: Performed By: #### C MP ####[facility] Daxifntusq888[address] [place], [place] [address]Dr. Areli Yousif Chloride [Moles/Vol] 106 mmol/L Normal 98-107 [facility] Comment on above: Performed By: #### C MP ####[facility] Kpnikzeukv4709 [place] [address]Dr. Areli Yousif CO2 [Moles/Vol] 22.9 mmol/L Normal 21.0-32.0 [facility] Comment on above: Performed By: #### C MP ####[facility] Povtcgauwj3160 [place] [address]Dr. Areli Yousif Creatinine [Mass/Vol] 1.20 mg/dL Normal 0.70-1.30 [facility] Comment on above: Performed By: #### C MP ####[facility] Ypxduvioyk6355[address] [place], [place] [address]Dr. Areli Yousif EGFR-AF CZECH >60 Normal >=60 [facility] Comment on above: Performed By: #### C MP ####[facility] Zhvjupwppg4700[address] [place], [place] [address]Dr. Areli Benja EGFR-NON AF CZECH >60 Normal >=60 [facility] Comment on above: Performed By: #### C MP ####[facility] Mtjjdrbara8617[address] [place], [place] [address]Dr. Areli Yousif Globulin (S) [Mass/Vol] 3.4 g/dL Normal [facility] Comment on above: Performed By: #### C MP ####[facility] Szukqcikjl0835 [place] [address]Dr. Areli Benja Glucose [Mass/Vol] 187 mg/dL Critically high 74-106 [facility] Comment on above: Performed By: #### C MP ####[facility] Nzqrthlxgi0831 [place] [address]Dr. Areli Yousif Potassium [Moles/Vol] 4.1 mmol/L Normal 3.5-5.1 [facility] Comment on above: Performed By: #### C MP ####[facility] Fzcyyibxfv468[address] [place], [place] [address]Dr. Tabbytulio Yousif Protein [Mass/Vol] 5.5 g/dL Critically low 6.4-8.2 [facility] Comment on above: Performed By: #### C MP ####[facility] Vdkmaqikmk8122 [place] [address]Dr. Areli Yousif Sodium [Moles/Vol] 138 mmol/L Normal 136-145 [facility] Comment on above: Performed By: #### C MP ####[facility] Ujkgjngnkn7571 [place] [address]Dr. Areli Yousif Urea nitrogen [Mass/Vol] 24.0 mg/dL Critically high 7.0-18.0 [facility] Comment on above: Performed By: #### C MP ####[facility] Prjspgrilv9954 [place] [address]Dr. Areli Yousif Urea nitrogen/Creatinine [Mass ratio] 20.0 mg/mg Normal [facility] Comment on above: Performed By: #### C MP ####[facility] Esontnfbui4620[address] [place], [place] [address]Dr. Areli Yousif BNPon 11-20-2022 Natriuretic peptide B (Bld) [Mass/Vol] 2097.0 pg/mL Critically high <=900.0 [facility] Comment on above: Performed By: #### C MADM, CMP, BNP ####[facility] Simdgscfnu8839 [place] [address]Dr. Areli Yousif CARDIAC ASHLEY ADMITon 023 CK [Catalytic activity/Vol] 50 U/L Normal 39-308 [facility] Comment on above: Performed By: #### C MADM, CMP, BNP ####[facility] Rscbmrcdsu9869 [place] [address]Dr. Areli Yousif CK.MB [Mass/Vol] ng/mL Normal <=3.60 [facility] Comment on above: Performed By: #### C MADM, CMP, BNP ####[facility] Mhbhisstjs[address] [place], [place] [address]Dr. Areli Yousif HSTROP 12.9 pg/mL Normal 4.0-76.1 [facility] Comment on above: Result Comment: CUT- OFF POINTS HAVE BEEN ESTABLISHED BASED ON THE FOURTH UNIVERSAL DEFINITIONS OF MYOCARDIALINFARCTION. THE UPPER REFERENCE LIMIT (URL) OF TROPONIN, DEFINED THE 99TH PERCENTILE OFcTnI DISTRIBUTION IN A REFERENCE POPULATION, HAS BEEN CONFIRMED THE DECISION THRESHOLDFOR LA DIAGNOSIS. Performed By: #### C MADM, CMP, BNP ####[facility] Mjpnqtjlhr3065 [place] [address]Dr. Areli Yousif LAWRENCE 128 ng/mL Critically high 16-96 [facility] Comment on above: Performed By: #### C MADM, CMP, BNP ####[facility] Smmdqivlgb4580 [place] [address]Dr. Areli Yousif CBC W MANUAL DIFFon 11-20-19 23 ATYPICAL LYMPH # Normal [facility] Comment on above: Performed By: #### C YOLETTE ####[facility] Bbeiyjdsaa93[address] [place], [place] [address]Dr. Areli Yousif ATYPICAL LYMPH % Normal [facility] Comment on above: Performed By: #### C YOLETTE ####[facility] Tnfznydopc190[address] [place], [place] [address]Dr. Areli Yousif BAND # 0.5 103/ul Critically high 0.0-0.3 [facility] Comment on above: Performed By: #### C YOLETTE ####[facility] Ghgkldwjqa0937[address] [place], [place] [address]Dr. Areli Yousif BAND % 3 % Normal 0-5 [facility] Comment on above: Performed By: #### C YOLETTE ####[facility] Ujqjkitxzc9920[address] [place], [place] [address]Dr. Areli Yousif BASOM # 0.00 103/ul Normal 0.00-0.10 [facility] Comment on above: Performed By: #### C YOLETTE ####[facility] Ackarjmtbl312[address] [place], [place] [address]Dr. Areli Yousif BASOM % 0.0 % Critically low 0.2-2.0 [facility] Comment on above: Performed By: #### C YOLETTE ####[facility] Afijlwjtgn68[address] [place], [place] [address]Dr. Areli Yousif BLAST # Normal [facility] Comment on above: Performed By: #### C YOLETTE ####[facility] Rcpxyfvqmw9996 [place] [address]Dr. Areli Yousif BLAST % Normal [facility] Comment on above: Performed By: #### C YOLETTE ####[facility] Zvyrkzfyjj6616 [place] [address]Dr. Areli Yousif CORRECTED WBC Normal 4.0-11.0 [facility] Comment on above: Performed By: #### C YOLETTE ####[facility] Qindoxfmew6282 [place] [address]Dr. Areli Yousif EOS # 0.00 103/ul Normal 0.00-0.70 [facility] Comment on above: Performed By: #### C YOLETTE ####[facility] Ybuioqqjex6896 [place] [address]Dr. Areli Yousif EOS% 0.0 % Critically low 0.9-7.0 [facility] Comment on above: Performed By: #### C YOLETTE ####[facility] Nzhptfzbqp2269 [place] [address]Dr. Areli Yousif HCT 37.7 % Critically low 42.0-54.0 [facility] Comment on above: Performed By: #### C YOLETTE ####[facility] Jdehgrurpd2850 [place] [address]Dr. Areli Yousif HGB 12.1 g/dl Critically low 14.0-18.0 [facility] Comment on above: Performed By: #### C YOLETTE ####[facility] Zdacavqiga8904 [place] [address]Dr. Areli Yousif LYMPHM # 0.15 103/ul Critically low 1.20-3.80 [facility] Comment on above: Performed By: #### C YOLETTE ####[facility] Sbrnikszfn5[address] [place], [place] [address]Dr. Areli Yousif LYMPHM% 1.0 % Critically low 20.5-60.0 [facility] Comment on above: Performed By: #### C YOLETTE ####[facility] Lxrqkctbtr219[address] [place], [place] [address]Dr. Areli Yousif MCH 28.8 pg Normal 25.9-34.0 [facility] Comment on above: Performed By: #### C YOLETTE ####[facility] Phxhuioyvg6355 [place] [address]Dr. Areli Yousif MCHC 32.1 g/dl Normal 29.9-35.2 [facility] Comment on above: Performed By: #### C YOLETTE ####[facility] Agqrtwqfzq6692 [place] [address]Dr. Areli Yousif MCV 89.8 fL Normal 80.0-94.0 [facility] Comment on above: Performed By: #### C BCJUANJOSE ####[facility] Ipoflufyjh5263 [place] [address]Dr. Areli Yousif METAMYELOCYTE # Normal [facility] Comment on above: Performed By: #### C YOLETTE ####[facility] Ptfycfibob7823 [place] [address]Dr. Areli Yousif METAMYELOCYTE % Normal [facility] Comment on above: Performed By: #### C YOLETTE ####[facility] Yvtslqswdx2985 [place] [address]Dr. Areli Yousif MONOM# 1.08 103/ul Critically high 0.30-0.80 [facility] Comment on above: Performed By: #### C YOLETTE ####[facility] Qkhhwuclqr4625 [place] [address]Dr. Areli Yousif MONOM% 7.0 % Normal 1.7-12.0 [facility] Comment on above: Performed By: #### C YOLETTE ####[facility] Jxarvsbuix2248 [place] [address]Dr. Areli Yousif MPV 10.2 fL Normal 9.5-13.5 [facility] Comment on above: Performed By: #### C YOLETTE ####[facility] Mmtfqpjyuq9193 [place] [id number]. Areli Yousif MYELOCYTE # Normal [facility] Comment on above: Performed By: #### C YOLETTE ####[facility] Zxgsnmezuh7851 [place], [place] [address]Kp. Areli Yousif MYELOCYTE % Normal [facility] Comment on above: Performed By: #### C BCJUANJOSE ####[facility] Tfnsinuhpl5941 [place] [address]Dr. Areli Yousif NRBC Normal [facility] Comment on above: Performed By: #### C BCJUANJOSE ####[facility] Kqdirzthkf1019 [place] [id number]. Areli Yousif PLT 268 103/ul Normal 150-450 [facility] Comment on above: Performed By: #### C YOLETTE ####[facility] Xleisjoedq1391 [place] [address]Dr. Areli Yousif RBC 4.20 106/ul Critically low 4.70-6.10 [facility] Comment on above: Performed By: #### C YOLETTE ####[facility] Pbwybyxhjs1830 [place] [address]Dr. Areli Yousif RDW 13.2 % Normal 11.0-15.0 [facility] Comment on above: Performed By: #### C YOLETTE ####[facility] Jtvtjkbzrr8202 [place] [address]Dr. Areli Yousif SEG # 13.71 103/ul Critically high 1.40-6.50 [facility] Comment on above: Performed By: #### C YOLETTE ####[facility] Wefekokwks1923 [place] [address]Dr. Areli Yousif SEG % 89.0 % Critically high 43.0-75.0 [facility] Comment on above: Performed By: #### C YOLETTE ####[facility] Shsmgzuyyo4222 [place] [address]Dr. Areli Yousif TOXIC GRANULATION 2+ Normal [facility] Comment on above: Performed By: #### C BCJUANJOSE ####[facility] Kzdulbsvzk2472 [place] [address]Dr. Areli Yousif WBC 15.4 103/ul Critically high 4.0-11.0 [facility] Comment on above: Performed By: #### C YOLETTE ####[facility] Knxtgbscos6272 [place] [address]Dr. Areli Yousif CULTURE BLOODon 11-20-2022 Microscopic examination of blood, culture Culture Observations: NO GROWTH AT 5 DAYS. Normal [facility] Comment on above: Performed By: #### B LDCX1 ####[facility] Dwboahnrhb7008 [place] [id number]. Areli Yousif Performed By: #### B LDCX2 ####[facility] Zrixcuafvg3713 [place] [id number]. Areli [facility] Covid-19 PCR (CVDTBH)on 11-05 SARS-CoV-2 (COVID-19) RNA MANSI+probe Ql (Unsp spec) Detected Abnormal NOT DETECTED [facility] Comment on above: Result Comment: This test is not yet approved or cleared by the [place] FDA. When there are no FDA-approved or cleared tests available, and other criteria are met, FDA can make tests available under an emergency access mechanism called an Emergency Use Authorization (EUA). The EUA for this test is supported by the Call Center Support Representative of Health and Human Service's declaration that [...] be used). Performed By: #### C VDTBH ####[facility] Pptpqybowz8469 [place] [id number]. Areli Yousif D-DIMERon 11-20-2022 D-DIMER 0.39 mg/L FEU Normal <=0.59 The [facility] Comment on above: Performed By: #### D DIM ####[facility] Chnzntrzzy5572 [place] [address]Dr. Areli [facility] D-DIMER COMMENTS SEE BELOW Normal [facility] Comment on above: Result Comment: Incr eases [...] generalized hospitalization. Performed By: #### D DIM ####[facility] Jlpvofzodc6039 [place] [address]Dr. Areli Yousif LACTATE/LACTIC ACIDon 2022 Lactate [Moles/Vol] 1.6 mmol/L Normal 0.4-1.9 [facility] Comment on above: Performed By: #### L ACT ####[facility] Ahyfieudfs2926 [place] [address]Dr. Areli Yousif PROF 14(COMP METB)on 023 Albumin [Mass/Vol] 2.7 g/dL Critically low 3.4-5.0 [facility] Comment on above: Performed By: #### C MADM, CMP, BNP ####[facility] Goqzkfyosi4293 [place] [address]Dr. Areli Yousif Albumin/Globulin [Mass ratio] 0.8 {ratio} Normal [facility] Comment on above: Performed By: #### C MADM, CMP, BNP ####[facility] Jirxnqutku9836 [place] [address]Dr. Areli Yousif ALP [Catalytic activity/Vol] 91 U/L Normal 46-116 [facility] Comment on above: Performed By: #### C MADM, CMP, BNP ####[facility] Focayzxyup8916 [place] [address]Dr. Areli Yousif ALT [Catalytic activity/Vol] 23 U/L Normal 16-63 [facility] Comment on above: Performed By: #### C MADM, CMP, BNP ####[facility] Cktvghdbhj0858 [place] [address]Dr. Areli Yousif Anion gap [Moles/Vol] 13.4 mmol/L Normal [facility] Comment on above: Performed By: #### C MADM, CMP, BNP ####[facility] Vexlanmpln1574 [place] [address]Dr. Areli Yousif AST [Catalytic activity/Vol] 24 U/L Normal 15-37 [facility] Comment on above: Performed By: #### C MADM, CMP, BNP ####[facility] Zwzzcopdsm8700 [place] [address]Dr. Areli Yousif Bilirubin [Mass/Vol] 0.3 mg/dL Normal 0.2-1.0 [facility] Comment on above: Performed By: #### C MADM, CMP, BNP ####[facility] Cviguugfix5660 [place] [address]Dr. Areli Yousif Calcium [Mass/Vol] 8.6 mg/dL Normal 8.5-10.1 [facility] Comment on above: Performed By: #### C MADM, CMP, BNP ####[facility] Mpvwxtjjib3061 [place] [address]Dr. Areli Yousif Chloride [Moles/Vol] 102 mmol/L Normal 98-107 [facility] Comment on above: Performed By: #### C MADM, CMP, BNP ####[facility] Xaqqwdtzpd1062 [place] [address]Dr. Areli Yousif CO2 [Moles/Vol] 24.7 mmol/L Normal 21.0-32.0 [facility] Comment on above: Performed By: #### C MADM, CMP, BNP ####[facility] Nnsylagxoi7527 [place] [address]Dr. Areli Yousif Creatinine [Mass/Vol] 1.45 mg/dL Critically high 0.70-1.30 [facility] Comment on above: Performed By: #### C MADM, CMP, BNP ####[facility] Sxeenyeewm5587 [place] [address]Dr. Areli Yousif EGFR-AF CZECH 58 mL/min/1.73m2 Critically low >=60 [facility] Comment on above: Performed By: #### C MADM, CMP, BNP ####[facility] Nvrihcnmok2129 [place] [address]Dr. Areli Yousif EGFR-NON AF CZECH 48 mL/min/1.73m2 Critically low >=60 [facility] Comment on above: Performed By: #### C MADM, CMP, BNP ####[facility] Toewjkeqyz2061 [place] [address]Dr. Areli Yousif Globulin (S) [Mass/Vol] 3.6 g/dL Normal [facility] Comment on above: Performed By: #### C MADM, CMP, BNP ####[facility] Fnagyplqqa4514 [place] [address]Dr. Areli Yousif Glucose [Mass/Vol] 328 mg/dL Critically high 74-106 [facility] Comment on above: Performed By: #### C MADM, CMP, BNP ####[facility] Kwewmqiahj0829 [place] [address]Dr. Areli Yousif Potassium [Moles/Vol] 4.1 mmol/L Normal 3.5-5.1 [facility] Comment on above: Performed By: #### C MADM, CMP, BNP ####[facility] Zfmcnzzizq2083 [place] [address]Dr. Areli Yousif Protein [Mass/Vol] 6.3 g/dL Critically low 6.4-8.2 [facility] Comment on above: Performed By: #### C MADDebbie, CMP, BNP ####[facility] Mmexyhmeho1549 [place] [address]Dr. Areli Yousif Sodium [Moles/Vol] 136 mmol/L Normal 136-145 [facility] Comment on above: Performed By: #### C MADM, CMP, BNP ####[facility] Gmwiunhvrg6977 [place] [address]Dr. Areli Yousif Urea nitrogen [Mass/Vol] 24.0 mg/dL Critically high 7.0-18.0 [facility] Comment on above: Performed By: #### C MADM, CMP, BNP ####[facility] Wbfudenfas5420 [place] [address]Dr. Areli Yousif Urea nitrogen/Creatinine [Mass ratio] 16.6 mg/mg [facility] Comment on above: Performed By: #### C MADM, CMP, BNP ####[facility] Psedtkpoce8649 [place] [address]Dr. Areli Yousif XR CHEST 1 Von 11-20-2022 XR CHEST 1 V Normal [facility] BNPon 10-08-2022 Natriuretic peptide B (Bld) [Mass/Vol] 508.0 pg/mL Normal <=900.0 [facility] Comment on above: Performed By: #### L IPA, CMADM, BNP, CMP ####[facility] Xwblajkqpu9680 [place] [address]Dr. Areli Yousif CARDIAC ASHLEY ADMITon 023 CK [Catalytic activity/Vol] 40 U/L Normal 39-308 [facility] Comment on above: Performed By: #### L IPA, CMADM, BNP, CMP ####[facility] Pqxtdkrfog5340 [place] [address]Dr. Areli Yousif CK.MB [Mass/Vol] 1.52 ng/mL Normal <=3.60 [facility] Comment on above: Performed By: #### L IPA, CMADM, BNP, CMP ####[facility] Jvpymqcfen5199 [place] [address]Dr. Areli Yousif HSTROP 12.5 pg/mL Normal 4.0-76.1 [facility] Comment on above: Result Comment: CUT- OFF POINTS HAVE BEEN ESTABLISHED BASED ON THE FOURTH UNIVERSAL DEFINITIONS OF MYOCARDIALINFARCTION. THE UPPER REFERENCE LIMIT (URL) OF TROPONIN, DEFINED THE 99TH PERCENTILE OFcTnI DISTRIBUTION IN A REFERENCE POPULATION, HAS BEEN CONFIRMED THE DECISION THRESHOLDFOR LA DIAGNOSIS. Performed By: #### L IPA, CMADM, BNP, CMP ####[facility] Czwvdtkres4676 [place] [address]Dr. Areli Benja LAWRENCE 92 ng/mL Normal 16-96 [facility] Comment on above: Performed By: #### L IPA, CMADM, BNP, CMP ####[facility] Stiiofgrlg5434 [place] [address]Dr. Tabbytulio Yousif CBC AUTO DIFFon 10-08-2022 BASO # 0.1 103/ul Normal 0.0-0.1 [facility] Comment on above: Performed By: #### C BC ####[facility] Svuzdytxuc6847 [place] [id number]. Areli Yousif Basophils/100 WBC (Bld) 0.5 % Normal 0.2-2.0 [facility] Comment on above: Performed By: #### C BC ####[facility] Orkbdsejge9499 [place] [address]Dr. Areli Yousif EO # 0.4 103/ul Normal 0.0-0.7 [facility] Comment on above: Performed By: #### C BC ####[facility] Gibrqytsmh05[address] [place], [place] [address]Dr. Areli Yousif Eosinophils/100 WBC (Bld) 3.4 % Normal 0.9-7.0 [facility] Comment on above: Performed By: #### C BC ####[facility] Danmfzugis52[address] [place], [place] [address]Dr. Areli Yousif Erythrocyte distribution width (RBC) [Ratio] 13.1 % Normal 11.0-15.0 [facility] Comment on above: Performed By: #### C BC ####[facility] [id number] [place], [place] [address]Dr. Areli Yousif Hematocrit (Bld) [Volume fraction] 35.4 % Critically low 42.0-54.0 [facility] Comment on above: Performed By: #### C BC ####[facility] [id number] [place], [place] [address]Dr. Areli Yousif Hemoglobin (Bld) [Mass/Vol] 11.6 g/dL Critically low 14.0-18.0 [facility] Comment on above: Performed By: #### C BC ####[facility] [id number] [place], [place] [address]Dr. Areli Yousif IG # 0.06 10e3/ul Critically high 0.00-0.03 [facility] Comment on above: Performed By: #### C BC ####[facility] [id number] [place], [place] [address]Dr. Areli Yousif IG % 0.5 % Normal 0.0-0.5 [facility] Comment on above: Performed By: #### C BC ####[facility] Ldwzcdfwss15[address] [place] [id number]. Tabbytulio Benja LYMPH # 2.9 103/ul Normal 1.2-3.8 [facility] Comment on above: Performed By: #### C BC ####[facility] Zqubgjvxbz3999 [place] [id number]. Areli Yosuif Lymphocytes/100 WBC (Bld) 26.2 % Normal 20.5-60.0 [facility] Comment on above: Performed By: #### C BC ####[facility] Lhhqscqewi40[address] [place] [address]Dr. Areli Yousif MANUAL DIFF REQ NO Normal [facility] Comment on above: Performed By: #### C BC ####[facility] Puvgllcnpf7[address] [place] [id number]. Areli Yousif MCH (RBC) [Entitic mass] 29.2 pg Normal 25.9-34.0 [facility] Comment on above: Performed By: #### C BC ####[facility] Rgarcqbzmr6773 [place] [id number]. Areli Yousif MCHC (RBC) [Mass/Vol] 32.8 g/dL Normal 29.9-35.2 [facility] Comment on above: Performed By: #### C BC ####[facility] Hainbawmhy84[address] [place] [id number]. Areli Yousif MCV (RBC) [Entitic vol] 89.2 fL Normal 80.0-94.0 [facility] Comment on above: Performed By: #### C BC ####[facility] Jmyyhugthe9199 [place] [id number]. Areli Yousif MONO # 0.7 103/ul Normal 0.3-0.8 [facility] Comment on above: Performed By: #### C BC ####[facility] Ykhtvwwzcv5814 [place] [id number]. Areli Yousif Monocytes/100 WBC (Bld) 6.1 % Normal 1.7-12.0 [facility] Comment on above: Performed By: #### C BC ####[facility] Pilegtnryf4864 [place] [id number]. Areli Yousif NEUT # 7.0 103/ul Critically high 1.4-6.5 [facility] Comment on above: Performed By: #### C BC ####[facility] Wanrlkafxi1159 [place] [id number]. Areli Yousif Neutrophils/100 WBC (Bld) 63.3 % Normal 43.0-75.0 [facility] Comment on above: Performed By: #### C BC ####[facility] Katxxncpzp3663 [place] [address]Dr. Areli Yousif Platelet mean volume (Bld) [Entitic vol] 10.3 fL Normal 9.5-13.5 [facility] Comment on above: Performed By: #### C BC ####[facility] Ngtsutynad9986 [place] [address]Dr. Areli Yousif PLT 317 103/ul Normal 150-450 [facility] Comment on above: Performed By: #### C BC ####[facility] Tmvxlauhuu7923 [place] [id number]. Areli Yousif RBC 3.97 106/ul Critically low 4.70-6.10 [facility] Comment on above: Performed By: #### C BC ####[facility] Driwfwtiyp8647 [place] [id number]. Areli Yousif WBC 11.0 103/ul Normal 4.0-11.0 [facility] Comment on above: Performed By: #### C BC ####[facility] Wwtngldfho78[address] [place] [id number]. Areli Yousif CT FACIAL BONES WO CONon CT FACIAL BONES WO CON Normal [facility] LIPASEon 10-08-2022 Lipase [Catalytic activity/Vol] 133.0 U/L Normal 73.0-393.0 [facility] Comment on above: Performed By: #### L IPA, CMADM, BNP, CMP ####[facility] Dmsoxorpkq80[address] [place] [address]Dr. Areli Yousif PH VENOUS BLOODon 10-08-2022 PCO2 VENOUS 43.2 mmHg Normal 40.0-52.0 [facility] Comment on above: Performed By: #### P HVEN ####[facility] Ngvznyuzec6123 [place] [address]Dr. Areli Yousif pH VENOUS 7.276 Critically low 7.330-7.430 [facility] Comment on above: Performed By: #### P HVEN ####[facility] Ugmrfcgsfp5392 [place] [address]Dr. Areli Yousif PROF 14(COMP METB)on 023 Albumin [Mass/Vol] 2.9 g/dL Critically low 3.4-5.0 [facility] Comment on above: Performed By: #### L IPA, CMADM, BNP, CMP ####[facility] Ywbcfstwll[address] [place], [place] [address]Dr. Areli Yousif Albumin/Globulin [Mass ratio] 0.7 {ratio} Normal [facility] Comment on above: Performed By: #### L IPA, CMADM, BNP, CMP ####[facility] Tsogsnpuaw[address] [place], [place] [address]Dr. Areli Yousif ALP [Catalytic activity/Vol] 87 U/L Normal 46-116 [facility] Comment on above: Performed By: #### L IPA, CMADM, BNP, CMP ####[facility] Ywbzzrmpai364[address] [place] [address]Dr. Areli Yousif ALT [Catalytic activity/Vol] 18 U/L Normal 16-63 [facility] Comment on above: Performed By: #### L IPA, CMADM, BNP, CMP ####[facility] Phaqkzqwbl6299 [place] [address]Dr. Areli Yousif Anion gap [Moles/Vol] 16.1 mmol/L Normal [facility] Comment on above: Performed By: #### L IPA, CMADM, BNP, CMP ####[facility] Gtilvrgizl4321 [place] [address]Dr. Areli Yousif AST [Catalytic activity/Vol] 14 U/L Critically low 15-37 [facility] Comment on above: Performed By: #### L IPA, CMADM, BNP, CMP ####[facility] Yihjldzejd9267 [place] [address]Dr. Areli Yousif Bilirubin [Mass/Vol] 0.2 mg/dL Normal 0.2-1.0 [facility] Comment on above: Performed By: #### L IPA, CMADM, BNP, CMP ####[facility] Edtygedgjb9701 [place] [address]Dr. Areli Yousif Calcium [Mass/Vol] 8.8 mg/dL Normal 8.5-10.1 [facility] Comment on above: Performed By: #### L IPA, CMADM, BNP, CMP ####[facility] Akixrjniij5786 [place] [address]Dr. Areli Yousif Chloride [Moles/Vol] 103 mmol/L Normal 98-107 [facility] Comment on above: Performed By: #### L IPA, CMADM, BNP, CMP ####[facility] Uhnsfedbvm1980 [place] [address]Dr. Areli Yousif CO2 [Moles/Vol] 21.4 mmol/L Normal 21.0-32.0 [facility] Comment on above: Performed By: #### L IPA, CMADM, BNP, CMP ####[facility] Navhbuxqza3606 [place] [address]Dr. Areli Yousif Creatinine [Mass/Vol] 1.35 mg/dL Critically high 0.70-1.30 [facility] Comment on above: Performed By: #### L IPA, CMADM, BNP, CMP ####[facility] Pzcfavsatl6449 [place] [address]Dr. Areli Yousif EGFR-AF CZECH >60 Normal >=60 [facility] Comment on above: Performed By: #### L IPA, CMADM, BNP, CMP ####[facility] Estzkdizlb5473 [place] [address]Dr. Areli Yousif EGFR-NON AF CZECH 53 mL/min/1.73m2 Critically low >=60 [facility] Comment on above: Performed By: #### L IPA, CMADM, BNP, CMP ####[facility] Yswfufgwlx7961 [place] [address]Dr. Areli Yousif Globulin (S) [Mass/Vol] 3.9 g/dL Normal [facility] Comment on above: Performed By: #### L IPA, CMADM, BNP, CMP ####[facility] Hivsihohgb7262 [place] [address]Dr. Areli Yousif Glucose [Mass/Vol] 276 mg/dL Critically high 74-106 T [facility] Comment on above: Performed By: #### L IPA, CMADM, BNP, CMP ####[facility] Stcdvsabvx397[address] [place], [place] [address]Dr. Areli Yousif Potassium [Moles/Vol] 4.5 mmol/L Normal 3.5-5.1 [facility] Comment on above: Performed By: #### L IPA, CMADM, BNP, CMP ####[facility] Weyrfbwtfz9[address] [place], [place] [address]Dr. Areli Yousif Protein [Mass/Vol] 6.8 g/dL Normal 6.4-8.2 [facility] Comment on above: Performed By: #### L IPA, CMADM, BNP, CMP ####[facility] Wfnqlcvbss409[address] [place], [place] [address]Dr. Areli Yousif Sodium [Moles/Vol] 136 mmol/L Normal 136-145 [facility] Comment on above: Performed By: #### L IPA, CMADM, BNP, CMP ####[facility] Keufmrovqb59[address] [place], [place] [address]Dr. Areli Yousif Urea nitrogen [Mass/Vol] 44.0 mg/dL Critically high 7.0-18.0 [facility] Comment on above: Performed By: #### L IPA, CMADM, BNP, CMP ####[facility] Ioecwunmfo6722 [place] [address]Dr. Areli Yousif Urea nitrogen/Creatinine [Mass ratio] 32.6 mg/mg Normal [facility] Comment on above: Performed By: #### L IPA, CMADM, BNP, CMP ####[facility] Ryoxyjbcbh0393 [place] [address]Dr. Areli Yousif PROTIMEon 10-08-2022 INR Coag (PPP) [Relative time] 1.04 {INR} Normal [facility] Comment on above: Performed By: #### P T, PTT ####[facility] Ppdsbujlbd377[address] [place], [place] [address]Dr. Areli Yousif INR GUIDELINES SEE BELOW Normal [facility] Comment on above: Result Comment: LANDON RED INR: 2.0 - 3.0 CONDITIONS NOT LISTED BELOW 2.5 - 3.5 FOR PROSTHETIC HEART VALVE REPLACEMENT 2.5 - 3.5 RECURRENT THROMBOSIS Performed By: #### P T, PTT ####[facility] Amhqcnnknh7[address] [place], [place] [address]Dr. Areli Yousif PT Coag (PPP) [Time] 11.2 s Normal 9.0-11.6 [facility] Comment on above: Performed By: #### P T, PTT ####[facility] Qunzzwuvvn95[address] [place], [place] [address]Dr. Areli Yousif PTTon 10-08-2022 aPTT Coag (Bld) [Time] 28.0 s Normal 22.3-36.2 Th [facility] Comment on above: Performed By: #### P T, PTT ####[facility] Dwqsteioxf45[address] [place], [place] [address]Dr. Areli Yousif XR CHEST 1 Von 10-08-2022 XR CHEST 1 V Normal [facility] XR HUMERUS RT MIN 2 Von 01-0 XR HUMERUS RT MIN 2 V Normal [facility] CBC AUTO DIFFon 10-07-2022 BASO # 0.1 103/ul Normal 0.0-0.1 [facility] Comment on above: Performed By: #### C BC ####[facility] Viudcobwvk[address] [place], [place] [address]Dr. Areli Yousif Basophils/100 WBC (Bld) 0.6 % Normal 0.2-2.0 [facility] Comment on above: Performed By: #### C BC ####[facility] Qkqcsueuht5634 [place] [id number]. Areli Yousif EO # 0.4 103/ul Normal 0.0-0.7 [facility] Comment on above: Performed By: #### C BC ####[facility] Miialibybi6546 [place] [address]Dr. Areli Yousif Eosinophils/100 WBC (Bld) 3.5 % Normal 0.9-7.0 [facility] Comment on above: Performed By: #### C BC ####[facility] Rdbvnwaqdn8387 [place] [address]Dr. Areli Yousif Erythrocyte distribution width (RBC) [Ratio] 13.4 % Normal 11.0-15.0 [facility] Comment on above: Performed By: #### C BC ####[facility] Kwtsupbvqy42[address] [place], [place] [address]Dr. Areli Yousif Hematocrit (Bld) [Volume fraction] 36.6 % Critically low 42.0-54.0 [facility] Comment on above: Performed By: #### C BC ####[facility] Uqhlrmfbpb9297 [place] [address]Dr. Areli Yousif Hemoglobin (Bld) [Mass/Vol] 12.1 g/dL Critically low 14.0-18.0 [facility] Comment on above: Performed By: #### C BC ####[facility] Cqhsmehsxg5635 [place] [address]Dr. Areli Yousif IG # 0.04 10e3/ul Critically high 0.00-0.03 [facility] Comment on above: Performed By: #### C BC ####[facility] Wcbkzddmib9956 [place] [address]Dr. Areli Yousif IG % 0.4 % Normal 0.0-0.5 [facility] Comment on above: Performed By: #### C BC ####[facility] Tucuafvdwu[address] [place], [place] [address]Dr. Areli Yousif LYMPH # 4.1 103/ul Critically high 1.2-3.8 [facility] Comment on above: Performed By: #### C BC ####[facility] Trlodmzuxq2441 [place] [id number]. Areli Yousif Lymphocytes/100 WBC (Bld) 38.0 % Normal 20.5-60.0 [facility] Comment on above: Performed By: #### C BC ####[facility] Ukginzttkv9104 [place] [id number]. Tabbytulio Yousif MANUAL DIFF REQ NO Normal [facility] Comment on above: Performed By: #### C BC ####[facility] Jpavlegehs3077 [place] [id number]. Areli Benja MCH (RBC) [Entitic mass] 29.1 pg Normal 25.9-34.0 [facility] Comment on above: Performed By: #### C BC ####[facility] Lmsatoltji4121 [place] [id number]. Areli Benja MCHC (RBC) [Mass/Vol] 33.1 g/dL Normal 29.9-35.2 [facility] Comment on above: Performed By: #### C BC ####[facility] Rjzxdhhzvc3456 [place] [id number]. Areli Benja MCV (RBC) [Entitic vol] 88.0 fL Normal 80.0-94.0 [facility] Comment on above: Performed By: #### C BC ####[facility] Pvaxlrieda1377 [place] [address]Dr. Tabbytulio Benja MONO # 0.5 103/ul Normal 0.3-0.8 [facility] Comment on above: Performed By: #### C BC ####[facility] Tfttpelakt6951 [place] [address]Dr. Tabbytulio Yousif Monocytes/100 WBC (Bld) 4.9 % Normal 1.7-12.0 [facility] Comment on above: Performed By: #### C BC ####[facility] Jdpfbnhujo[address] [place], [place] [address]Dr. Areli Yousif NEUT # 5.6 103/ul Normal 1.4-6.5 [facility] Comment on above: Performed By: #### C BC ####[facility] Yxnzfmldet8717 [place], [place] [address]Xm. Areli Yousif Neutrophils/100 WBC (Bld) 52.6 % Normal 43.0-75.0 [facility] Comment on above: Performed By: #### C BC ####[facility] Rqzhpvkgmd9445 [place], [place] [address]Es. Areli Yousif Platelet mean volume (Bld) [Entitic vol] 10.4 fL Normal 9.5-13.5 [facility] Comment on above: Performed By: #### C BC ####[facility] Sztnxavugq4966 [place], [place] [address]Yk. Areli Yousif PLT 338 103/ul Normal 150-450 [facility] Comment on above: Performed By: #### C BC ####[facility] Tcqeanhmfm7039 [place], [place] [address]Vh. Areli Yousif RBC 4.16 106/ul Critically low 4.70-6.10 [facility] Comment on above: Performed By: #### C BC ####[facility] Kwgegrkavs8754 [place], [place] [address]Ql. Areli Yousif WBC 10.7 103/ul Normal 4.0-11.0 [facility] Comment on above: Performed By: #### C BC ####[facility] Iqlaiehasp7065 [place], [place] [address]Bd. Areli Yousif CT CSPINE WO CONon 3 CT CSPINE WO CON Normal [facility] CT STROKE HEAD WOon 10-07-[address] STROKE HEAD WO Normal [facility]on SARS-CoV-2 (COVID-19) RNA MANSI+probe Ql (Unsp spec) Not detected Normal NOT DETECTED [facility] Comment on above: Result Comment: When [...] for this test is supported by the Call Center Support Representative of Health and Human Service's declaration that [...] be used). Performed By: #### C VDTB ####[facility] Movrxdslsd234[address] [place], [place] [address]Dr. Areli Yousif INFLUENZA A AND B AGon 10-07 INFLUANE SEE BELOW Normal [facility] Comment on above: Result Comment: Nega tive for Flu A protein angiten. Infection due to Flu A cannot be ruled out. Flu A angiten in the sample may be below the detection limit of the test. Performed By: #### I NFLUAB ####[facility] Ytnvlnnsjr[address] [place], [place] [address]Dr. Areli Yousif INFLUBNEGH SEE BELOW Normal [facility] Comment on above: Result Comment: Nega tive for Flu B protein antigen. Infection due to Flu B cannot be ruled out. Flu B antigen in the sample may be below the detection limit of the test. Performed By: #### I NFLUAB ####[facility] Opzerpnjtz697[address] [place], [place] [address]Dr. tulio [facility] INFLUENZA A AG Negative Normal NEGATIVE SEE COMMENT [facility] Comment on above: Performed By: #### I NFLUAB ####[facility] Vxvppiahoh8467[address] [place], [place] [address]Dr. tulio [facility] INFLUENZA B AG Negative Normal NEGATIVE SEE COMMENT [facility] Comment on above: Performed By: #### I NFLUAB ####[facility] Xxyfsmshev6[address] [place], [place] [address]Dr. Areli Yousif POINT OF CARE GLUCOSEon 01-0 Glucose [Mass/Vol] 263 mg/dL Critically high 74-106 T [facility] Comment on above: Performed By: #### P OCGLUC ####[facility] Vkobmxyndt8235 [place] [address]Dr. Areli Yousif PROF CHEM 8 (BAS METB)on Anion gap [Moles/Vol] 17.2 mmol/L Normal Th [facility] Comment on above: Performed By: #### B MP ####[facility] Terfyqnyoi7606 [place] [address]Dr. Areli Yousif Calcium [Mass/Vol] 9.2 mg/dL Normal 8.5-10.1 [facility] Comment on above: Performed By: #### B MP ####[facility] Rnwxxlfzay4608 [place] [address]Dr. Areli Yousif Chloride [Moles/Vol] 104 mmol/L Normal 98-107 [facility] Comment on above: Performed By: #### B MP ####[facility] Nmklhlsbkl65[address] [place], [place] [address]Dr. Areli Yousif CO2 [Moles/Vol] 19.1 mmol/L Critically low 21.0-32.0 [facility] Comment on above: Performed By: #### B MP ####[facility] Gnlcpbekjt597[address] [place], [place] [address]Dr. Areli Yousif Creatinine [Mass/Vol] 1.29 mg/dL Normal 0.70-1.30 [facility] Comment on above: Performed By: #### B MP ####[facility] Ilhleoyyfp332[address] [place], [place] [address]Dr. Areli Yousif EGFR-AF CZECH >60 Normal >=60 [facility] Comment on above: Performed By: #### B MP ####[facility] Ksokstwpkt7[address] [place], [place] [address]Dr. Areli Yousif EGFR-NON AF CZECH 55 mL/min/1.73m2 Critically low >=60 [facility] Comment on above: Performed By: #### B MP ####[facility] Uabwkbxqql029[address] [place], [place] [address]Dr. Areli Yousif Glucose [Mass/Vol] 165 mg/dL Critically high 74-106 [facility] Comment on above: Performed By: #### B MP ####[facility] Rgcalhbktn1818 [place] [address]Dr. Areli Yousif Potassium [Moles/Vol] 4.3 mmol/L Normal 3.5-5.1 [facility] Comment on above: Performed By: #### B MP ####[facility] Ogskdgzcur445[address] [place], [place] [address]Dr. Areli Benja Sodium [Moles/Vol] 136 mmol/L Normal 136-145 [facility] Comment on above: Performed By: #### B MP ####[facility] Tnccmbiwnu8505[address] [place], [place] [address]Dr. Areli Benja Urea nitrogen [Mass/Vol] 43.0 mg/dL Critically high 7.0-18.0 [facility] Comment on above: Performed By: #### B MP ####[facility] Okehrvgcit610[address] [place], [place] [address]Dr. Areli Benja Urea nitrogen/Creatinine [Mass ratio] 33.3 mg/mg Normal [facility] Comment on above: Performed By: #### B MP ####[facility] Gcsaukfopl71[address] [place], [place] [address]Dr. Areli Benja CBC AUTO DIFFon 10-06-2022 BASO # 0.0 103/ul Normal 0.0-0.1 [facility] Comment on above: Performed By: #### C BC ####[facility] Xtmvifoxmm617[address] [place], [place] [address]Dr. Areli Yousif Basophils/100 WBC (Bld) 0.5 % Normal 0.2-2.0 [facility] Comment on above: Performed By: #### C BC ####[facility] Poinrbvfmw8295[address] [place], [place] [address]Dr. Areli Yousif EO # 0.2 103/ul Normal 0.0-0.7 [facility] Comment on above: Performed By: #### C BC ####[facility] Tlixoflclq2505[address] [place], [place] [address]Dr. Areli Yousif Eosinophils/100 WBC (Bld) 2.8 % Normal 0.9-7.0 [facility] Comment on above: Performed By: #### C BC ####[facility] Jtlnahdjuh7723 [place] [address]Dr. Areli Yousif Erythrocyte distribution width (RBC) [Ratio] 13.4 % Normal 11.0-15.0 [facility] Comment on above: Performed By: #### C BC ####[facility] Aszfmrrovn35[address] [place], [place] [address]Dr. Tabbytulio Benja Hematocrit (Bld) [Volume fraction] 33.6 % Critically low 42.0-54.0 [facility] Comment on above: Performed By: #### C BC ####[facility] Rlfivnbtkk4910[address] [place], [place] [address]Dr. Areli Yousif Hemoglobin (Bld) [Mass/Vol] 11.2 g/dL Critically low 14.0-18.0 [facility] Comment on above: Performed By: #### C BC ####[facility] Efcglbdiee7125[address] [place], [place] [address]Dr. Areli Yousif IG # 0.04 10e3/ul Critically high 0.00-0.03 [facility] Comment on above: Performed By: #### C BC ####[facility] Eqedvgbtdz70[address] [place], [place] [address]Dr. Areli Yousif IG % 0.5 % Normal 0.0-0.5 [facility] Comment on above: Performed By: #### C BC ####[facility] Iaobtevwvt6[address] [place], [place] [address]Dr. Areli Yousif LYMPH # 3.1 103/ul Normal 1.2-3.8 [facility] Comment on above: Performed By: #### C BC ####[facility] Gnqbfqforw3616[address] [place], [place] [address]Dr. Areli Yousif Lymphocytes/100 WBC (Bld) 36.1 % Normal 20.5-60.0 [facility] Comment on above: Performed By: #### C BC ####[facility] Irxmphzvkg4550[address] [place], [place] [address]Dr. Areli Yousif MANUAL DIFF REQ NO Normal [facility] Comment on above: Performed By: #### C BC ####[facility] Nfkdbxnxre5608 [place] [address]Dr. Areli Yousif MCH (RBC) [Entitic mass] 29.2 pg Normal 25.9-34.0 [facility] Comment on above: Performed By: #### C BC ####[facility] Rirecqrdgc9726 [place] [address]Dr. Areli Yousif MCHC (RBC) [Mass/Vol] 33.3 g/dL Normal 29.9-35.2 [facility] Comment on above: Performed By: #### C BC ####[facility] Ywjywkwtis[address] [place], [place] [address]DrDenae Yousif MCV (RBC) [Entitic vol] 87.5 fL Normal 80.0-94.0 [facility] Comment on above: Performed By: #### C BC ####[facility] Gtsvluorkl830[address] [place], [place] [address]DrDenae Yousif MONO # 0.5 103/ul Normal 0.3-0.8 [facility] Comment on above: Performed By: #### C BC ####[facility] Emmalulitd215[address] [place], [place] [address]DrDenae Yousif Monocytes/100 WBC (Bld) 6.2 % Normal 1.7-12.0 [facility] Comment on above: Performed By: #### C BC ####[facility] Ykldodbbvj997[address] [place], [place] [address]DrDenae Yousif NEUT # 4.6 103/ul Normal 1.4-6.5 [facility] Comment on above: Performed By: #### C BC ####[facility] Bhwlzotvhw7055[address] [place], [place] [address]DrDenae Yousif Neutrophils/100 WBC (Bld) 53.9 % Normal 43.0-75.0 [facility] Comment on above: Performed By: #### C BC ####[facility] Peomaxwbiv388[address] [place], [place] [address]DrDenae Yousif Platelet mean volume (Bld) [Entitic vol] 10.6 fL Normal 9.5-13.5 [facility] Comment on above: Performed By: #### C BC ####[facility] Setzzxbtpv6264 [place] [address]Dr. Areli Yousif PLT 314 103/ul Normal 150-450 [facility] Comment on above: Performed By: #### C BC ####[facility] Aydaojlpfy3543 [place] [address]Dr. Areli Yousif RBC 3.84 106/ul Critically low 4.70-6.10 [facility] Comment on above: Performed By: #### C BC ####[facility] Sfkblbvyoy4078 [place] [address]Dr. Areli Yousif WBC 8.6 103/ul Normal 4.0-11.0 [facility] Comment on above: Performed By: #### C BC ####[facility] Trblodiewa4569 [place] [address]Dr. Areli Yousif POINT OF CARE GLUCOSEon Glucose [Mass/Vol] 249 mg/dL Critically high 74-106 [facility] Comment on above: Performed By: #### P OCGLUC ####[facility] Cglnnnvomg8812 [place] [address]Dr. Areli Yousif Glucose [Mass/Vol] 443 mg/dL Critically high 74-106 [facility] Comment on above: Performed By: #### P OCGLUC ####[facility] Jsdmzuivcn4203 [place] [address]Dr. Areli Yousif Glucose [Mass/Vol] 311 mg/dL Critically high 74-106 [facility] Comment on above: Performed By: #### P OCGLUC ####[facility] Ywmvuaenlg0568 [place] [address]Dr. Areli Yousif Glucose [Mass/Vol] 241 mg/dL Critically high 74-106 [facility] Comment on above: Performed By: #### P OCGLUC ####[facility] Ufvhlqylbq8422 [place] [address]Dr. Areli Benja PROF CHEM 8 (BAS METB)on Anion gap [Moles/Vol] 15.2 mmol/L Normal [facility] Comment on above: Performed By: #### B MP ####[facility] Aczwlaoxbr817[address] [place], [place] [address]Dr. Areli Yousif Calcium [Mass/Vol] 8.5 mg/dL Normal 8.5-10.1 [facility] Comment on above: Performed By: #### B MP ####[facility] Nrpjednduy27[address] [place], [place] [address]Dr. Areli Yousif Chloride [Moles/Vol] 105 mmol/L Normal 98-107 [facility] Comment on above: Performed By: #### B MP ####[facility] Klsclhdagb88[address] [place], [place] [address]Dr. Areli Yousif CO2 [Moles/Vol] 20.0 mmol/L Critically low 21.0-32.0 [facility] Comment on above: Performed By: #### B MP ####[facility] Plnwkjhpon0150[address] [place], [place] [address]Dr. Areli Yousif Creatinine [Mass/Vol] 1.32 mg/dL Critically high 0.70-1.30 [facility] Comment on above: Performed By: #### B MP ####[facility] Knceijuzsv[address] [place], [place] [address]Dr. Areli Yousif EGFR-AF CZECH >60 Normal >=60 [facility] Comment on above: Performed By: #### B MP ####[facility] [id number] [place], [place] [address]Dr. Areli Yousif EGFR-NON AF CZECH 54 mL/min/1.73m2 Critically low >=60 [facility] Comment on above: Performed By: #### B MP ####[facility] [id number] [place], [place] [address]Dr. Areli Yousif Glucose [Mass/Vol] 280 mg/dL Critically high 74-106 [facility] Comment on above: Performed By: #### B MP ####[facility] [id number] [place], [place] [address]Dr. Areli Yousif Potassium [Moles/Vol] 4.2 mmol/L Normal 3.5-5.1 [facility] Comment on above: Performed By: #### B MP ####[facility] [id number] [place], [place] [address]Dr. Areli Benja Sodium [Moles/Vol] 136 mmol/L Normal 136-145 [facility] Comment on above: Performed By: #### B MP ####[facility] Ibsmjkakaz[address] [place], [place] [address]Dr. Areli Benja Urea nitrogen [Mass/Vol] 37.0 mg/dL Critically high 7.0-18.0 [facility] Comment on above: Performed By: #### B MP ####[facility] Dwpnsqkfbf308[address] [place], [place] [address]Dr. Areli Yousif Urea nitrogen/Creatinine [Mass ratio] 28.0 mg/mg Normal [facility] Comment on above: Performed By: #### B MP ####[facility] Bqtbfnsevm13[address] [place], [place] [address]Dr. Areli Benja CBC AUTO DIFFon 10-05-2022 BASO # 0.0 103/ul Normal 0.0-0.1 [facility] Comment on above: Performed By: #### C BC ####[facility] Agxqcubrpt7439[address] [place], [place] [address]Dr. Areli Yousif Basophils/100 WBC (Bld) 0.3 % Normal 0.2-2.0 [facility] Comment on above: Performed By: #### C BC ####[facility] Rhyomjtxvp717[address] [place], [place] [address]Dr. Areli Yousif EO # 0.2 103/ul Normal 0.0-0.7 [facility] Comment on above: Performed By: #### C BC ####[facility] Bepoyuaduo176[address] [place], [place] [address]Dr. Areli Yousif Eosinophils/100 WBC (Bld) 2.8 % Normal 0.9-7.0 [facility] Comment on above: Performed By: #### C BC ####[facility] Nupttljsyu1760[address] [place], [place] [address]Dr. Areli Yousif Erythrocyte distribution width (RBC) [Ratio] 13.1 % Normal 11.0-15.0 [facility] Comment on above: Performed By: #### C BC ####[facility] Eydgbpobxj9[address] [place] [address]Dr. Areli Yousif Hematocrit (Bld) [Volume fraction] 33.4 % Critically low 42.0-54.0 [facility] Comment on above: Performed By: #### C BC ####[facility] Fvexoeobmf8334 [place] [address]Dr. Areli Yousif Hemoglobin (Bld) [Mass/Vol] 11.0 g/dL Critically low 14.0-18.0 [facility] Comment on above: Performed By: #### C BC ####[facility] Xeqlxukogj326[address] [place], [place] [address]Dr. Areli Yousif IG # 0.03 10e3/ul Normal 0.00-0.03 [facility] Comment on above: Performed By: #### C BC ####[facility] Somzxyipix[address] [place], [place] [address]Dr. Areli Benja IG % 0.3 % Normal 0.0-0.5 [facility] Comment on above: Performed By: #### C BC ####[facility] Mjvqtlirol9000[address] [place], [place] [address]Dr. Areli Benja LYMPH # 3.5 103/ul Normal 1.2-3.8 [facility] Comment on above: Performed By: #### C BC ####[facility] Jyhfsmcuvm319[address] [place], [place] [address]Dr. Tabbytulio Yousif Lymphocytes/100 WBC (Bld) 40.4 % Normal 20.5-60.0 [facility] Comment on above: Performed By: #### C BC ####[facility] Cnaizadbkg330[address] [place], [place] [address]Dr. Tabbytulio Yousif MANUAL DIFF REQ NO Normal [facility] Comment on above: Performed By: #### C BC ####[facility] Qltrhitmxt5159 [place] [address]Dr. Areli Yousif MCH (RBC) [Entitic mass] 28.7 pg Normal 25.9-34.0 [facility] Comment on above: Performed By: #### C BC ####[facility] Cbsnmjfquz7937 [place] [address]Dr. Areli Yousif MCHC (RBC) [Mass/Vol] 32.9 g/dL Normal 29.9-35.2 [facility] Comment on above: Performed By: #### C BC ####[facility] Lioubrlvbk357[address] [place], [place] [address]Dr. Areli Benja MCV (RBC) [Entitic vol] 87.2 fL Normal 80.0-94.0 [facility] Comment on above: Performed By: #### C BC ####[facility] Jmdqjavfwi3230[address] [place], [place] [address]Dr. Areli Yousif MONO # 0.5 103/ul Normal 0.3-0.8 [facility] Comment on above: Performed By: #### C BC ####[facility] Ekyawnuxib0109[address] [place], [place] [address]Dr. Tabbytulio Yousif Monocytes/100 WBC (Bld) 5.8 % Normal 1.7-12.0 [facility] Comment on above: Performed By: #### C BC ####[facility] Wblsiksmog0434[address] [place], [place] [address]Dr. Areli Yousif NEUT # 4.3 103/ul Normal 1.4-6.5 [facility] Comment on above: Performed By: #### C BC ####[facility] Agpesmxnui313[address] [place], [place] [address]Dr. Tabbytulio Yousif Neutrophils/100 WBC (Bld) 50.4 % Normal 43.0-75.0 [facility] Comment on above: Performed By: #### C BC ####[facility] Egpyudward100[address] [place], [place] [address]Dr. Areli Benja Platelet mean volume (Bld) [Entitic vol] 10.5 fL Normal 9.5-13.5 [facility] Comment on above: Performed By: #### C BC ####[facility] Ywlhincnjt8427 [place] [address]Dr. Areli Yousif PLT 320 103/ul Normal 150-450 [facility] Comment on above: Performed By: #### C BC ####[facility] Lmjhrijcix3046 [place] [address]Dr. Areli Yousif RBC 3.83 106/ul Critically low 4.70-6.10 [facility] Comment on above: Performed By: #### C BC ####[facility] Cbrxqtlboe9366 [place] [address]Dr. Areli Yousif WBC 8.6 103/ul Normal 4.0-11.0 [facility] Comment on above: Performed By: #### C BC ####[facility] Hkufxditry0030[address] [place], [place] [address]Dr. Areli Yousif CULTURE URINEon 10-05-2022 CULTURE URINE Normal [facility] Comment on above: Performed By: #### U RCX ####[facility] Upghcjgjdo665[address] [place], [place] [address]Dr. Areli Yousif POINT OF CARE GLUCOSEon Glucose [Mass/Vol] 266 mg/dL Critically high 74-106 [facility] Comment on above: Performed By: #### P OCGLUC ####[facility] Xpulryssvn680[address] [place], [place] [address]Dr. Areli Yousif Glucose [Mass/Vol] 320 mg/dL Critically high 74-106 [facility] Comment on above: Performed By: #### P OCGLUC ####[facility] Nfjrgrwykp346[address] [place], [place] [address]Dr. Areli Yousif Glucose [Mass/Vol] 282 mg/dL Critically high 74-106 [facility] Comment on above: Performed By: #### P OCGLUC ####[facility] Nrrmoueolx8947[address] [place], [place] [address]Dr. Areli Yousif PROF CHEM 8 (BAS METB)on Anion gap [Moles/Vol] 16.2 mmol/L Normal [facility] Comment on above: Performed By: #### B MP ####[facility] Qltvrvcsvz5242 [place] [address]Dr. Areli Yousif Calcium [Mass/Vol] 8.7 mg/dL Normal 8.5-10.1 [facility] Comment on above: Performed By: #### B MP ####[facility] Hxedgqjdga6495 [place] [address]Dr. Areli Yousif Chloride [Moles/Vol] 105 mmol/L Normal 98-107 [facility] Comment on above: Performed By: #### B MP ####[facility] Xlgoauqtqu1562 [place] [address]Dr. Areli Yousif CO2 [Moles/Vol] 19.1 mmol/L Critically low 21.0-32.0 [facility] Comment on above: Performed By: #### B MP ####[facility] Gngzucpmpy0624[address] [place], [place] [address]Dr. Areli Yousif Creatinine [Mass/Vol] 0.96 mg/dL Normal 0.70-1.30 [facility] Comment on above: Performed By: #### B MP ####[facility] Errnhtqsdk1934[address] [place], [place] [address]Dr. Areli Yousif EGFR-AF CZECH >60 Normal >=60 [facility] Comment on above: Performed By: #### B MP ####[facility] Jlvjovskcs1307[address] [place], [place] [address]Dr. Areli Benja EGFR-NON AF CZECH >60 Normal >=60 [facility] Comment on above: Performed By: #### B MP ####[facility] Ymvdniecyh9412 [place] [address]Dr. Areli Yousif Glucose [Mass/Vol] 139 mg/dL Critically high 74-106 [facility] Comment on above: Performed By: #### B MP ####[facility] Mjsbsejhig174[address] [place], [place] [address]Dr. Areli Yousif Potassium [Moles/Vol] 4.3 mmol/L Normal 3.5-5.1 [facility] Comment on above: Performed By: #### B MP ####[facility] Ujrvzviyrg474[address] [place], [place] [address]Dr. Areli Yousif Sodium [Moles/Vol] 136 mmol/L Normal 136-145 [facility] Comment on above: Performed By: #### B MP ####[facility] Ldbuzjbtyj416[address] [place], [place] [address]Dr. Areli Yousif Urea nitrogen [Mass/Vol] 26.0 mg/dL Critically high 7.0-18.0 [facility] Comment on above: Performed By: #### B MP ####[facility] Rtcwsnirps63[address] [place], [place] [address]Dr. Areli Yousif Urea nitrogen/Creatinine [Mass ratio] 27.1 mg/mg Normal [facility] Comment on above: Performed By: #### B MP ####[facility] Qxallndwai415[address] [place], [place] [address]Dr. Areli Yousif CBC AUTO DIFFon 10-04-2022 BASO # 0.1 103/ul Normal 0.0-0.1 [facility] Comment on above: Performed By: #### C BC ####[facility] Qqrcdqdfqh365[address] [place], [place] [address]Dr. Areli Benja Basophils/100 WBC (Bld) 0.5 % Normal 0.2-2.0 [facility] Comment on above: Performed By: #### C BC ####[facility] Uerlppenlz896[address] [place], [place] [address]Dr. Areli Yousif EO # 0.3 103/ul Normal 0.0-0.7 [facility] Comment on above: Performed By: #### C BC ####[facility] Cdflpticfs229[address] [place], [place] [address]Dr. Areli Benja Eosinophils/100 WBC (Bld) 3.1 % Normal 0.9-7.0 [facility] Comment on above: Performed By: #### C BC ####[facility] Hblzsetvvv547[address] [place], [place] [address]Dr. Areli Yousif Erythrocyte distribution width (RBC) [Ratio] 13.2 % Normal 11.0-15.0 [facility] Comment on above: Performed By: #### C BC ####[facility] Blumixyceu4[address] [place] [address]Dr. Areli Yousif Hematocrit (Bld) [Volume fraction] 32.0 % Critically low 42.0-54.0 [facility] Comment on above: Performed By: #### C BC ####[facility] Rnhercmeie0593 [place] [address]Dr. Areli Yousif Hemoglobin (Bld) [Mass/Vol] 10.7 g/dL Critically low 14.0-18.0 [facility] Comment on above: Performed By: #### C BC ####[facility] Jhbspijynl9740 [place] [address]Dr. Areli Benja IG # 0.04 10e3/ul Critically high 0.00-0.03 [facility] Comment on above: Performed By: #### C BC ####[facility] Etncsgcfpt349[address] [place], [place] [address]Dr. Tabbytulio Yousif IG % 0.4 % Normal 0.0-0.5 [facility] Comment on above: Performed By: #### C BC ####[facility] Zifinqhwia[address] [place], [place] [address]Dr. Areli Benja LYMPH # 3.6 103/ul Normal 1.2-3.8 [facility] Comment on above: Performed By: #### C BC ####[facility] Zfjfkdahqp866[address] [place], [place] [address]DrDenae Areli Benja Lymphocytes/100 WBC (Bld) 33.7 % Normal 20.5-60.0 [facility] Comment on above: Performed By: #### C BC ####[facility] Ohexntohzi6706 [place] [address]DrDenae Areli Benja MANUAL DIFF REQ NO Normal [facility] Comment on above: Performed By: #### C BC ####[facility] Kkwhjbymrp0170 [place] [address]DrDenae Areli Benja MCH (RBC) [Entitic mass] 29.2 pg Normal 25.9-34.0 [facility] Comment on above: Performed By: #### C BC ####[facility] Mrtneojtlb129[address] [place], [place] [address]Dr. Areli Benja MCHC (RBC) [Mass/Vol] 33.4 g/dL Normal 29.9-35.2 [facility] Comment on above: Performed By: #### C BC ####[facility] Xrtpqvccei0792 [place] [address]Dr. Areli Benja MCV (RBC) [Entitic vol] 87.2 fL Normal 80.0-94.0 [facility] Comment on above: Performed By: #### C BC ####[facility] Kxuedxojdi1904 [place] [address]Dr. Tabbytulio Benja MONO # 0.6 103/ul Normal 0.3-0.8 [facility] Comment on above: Performed By: #### C BC ####[facility] Qzvlatmbqh6292 [place] [address]Dr. Areli Yousif Monocytes/100 WBC (Bld) 6.0 % Normal 1.7-12.0 [facility] Comment on above: Performed By: #### C BC ####[facility] Vzzrqlfewq258[address] [place], [place] [address]Dr. Areli Yousif NEUT # 6.0 103/ul Normal 1.4-6.5 [facility] Comment on above: Performed By: #### C BC ####[facility] Nwxzbcnjkx8688 [place] [address]Dr. Areli Yousif Neutrophils/100 WBC (Bld) 56.3 % Normal 43.0-75.0 [facility] Comment on above: Performed By: #### C BC ####[facility] Xothislppv6579 [place] [address]Dr. Areli Yousif Platelet mean volume (Bld) [Entitic vol] 10.4 fL Normal 9.5-13.5 [facility] Comment on above: Performed By: #### C BC ####[facility] Uejfbxuyht25[address] [place], [place] [address]Dr. Areli Yousif PLT 306 103/ul Normal 150-450 [facility] Comment on above: Performed By: #### C BC ####[facility] Wxvxwnezuf759[address] [place], [place] [address]Dr. Areli Yousif RBC 3.67 106/ul Critically low 4.70-6.10 [facility] Comment on above: Performed By: #### C BC ####[facility] Roieupjauh6842 [place] [address]Dr. Areli Yousif WBC 10.6 103/ul Normal 4.0-11.0 [facility] Comment on above: Performed By: #### C BC ####[facility] Sqztxyicoy4577 [place] [address]Dr. Areli Yousif FREE T3on 10-04-2022 FREE T3 1.74 pg/mlL Critically low 2.18-3.98 [facility] Comment on above: Performed By: #### F T3, TSH ####[facility] Harcvszugl0808 [place] [address]Dr. Areli Yousif FREE T4on 10-04-2022 Free T4 [Mass/Vol] 1.25 ng/dL Normal 0.76-1.46 [facility] Comment on above: Performed By: #### V ITAD, FT4, B12FOL, FETIBC ####[facility] Tndounmlcj1040 [place] [address]Dr. Areli Yousif GLYCOHEMOGLOBIN A1Con 2021 ADA RECOMMENDATION SEE BELOW Normal [facility] Comment on above: Result Comment: ADA RECOMMENDED LIMIT 4.0 - 6.0 ADA THERAPEUTIC TARGET < 7.0 ACTION SUGGESTED > 7.0 Performed By: #### A 1C ####[facility] Mqvwnkegxy4577 [place] [address]Dr. Areli Yousif Glucose [Mass/Vol] 212 mg/dL Normal [facility] Comment on above: Performed By: #### A 1C ####[facility] Ckxcgypecm5252 [place] [address]Dr. Areli Yousif HbA1c (Bld) [Mass fraction] 9.0 % Critically high 4.5-6.2 [facility] Comment on above: Performed By: #### A 1C ####[facility] Nyobbierje3991 [place] [address]Dr. Areli Yousif IRON AND TIBCon 12-31-2022 % SATURATION 24.1 % Normal [facility] Comment on above: Performed By: #### V ITAD, FT4, B12FOL, FETIBC ####[facility] Qqpgoanwtm3895 [place] [address]Dr. Areli Yousif Iron [Mass/Vol] 47.0 ug/dL Critically low 65.0-175.0 [facility] Comment on above: Performed By: #### V ITAD, FT4, B12FOL, FETIBC ####[facility] Ylaashuzlo1165 [place] [address]Dr. Areli Yousif TIBC DIRECT 195.0 ug/dL Critically low 250.0-450.0 [facility] Comment on above: Performed By: #### V ITAD, FT4, B12FOL, FETIBC ####[facility] Vqqoumcupk1611 [place] [address]Dr. Tabbytulio Yousif LACTATE/LACTIC ACIDon 2021 Lactate [Moles/Vol] 0.9 mmol/L Normal 0.4-1.9 [facility] Comment on above: Performed By: #### L ACT ####[facility] Lzyqnuevsi9199[address] [place], [place] [address]Dr. Areli Yousif POINT OF CARE GLUCOSEon 09-06 Glucose [Mass/Vol] 215 mg/dL Critically high 74-106 [facility] Comment on above: Performed By: #### P OCGLUC ####[facility] Ucuyibhzdi358[address] [place], [place] [address]Dr. Tabbytulio Yousif Glucose [Mass/Vol] 204 mg/dL Critically high 74-106 [facility] Comment on above: Performed By: #### P OCGLUC ####[facility] Lkalqqtexg550[address] [place], [place] [address]Dr. Areli Yousif Glucose [Mass/Vol] 235 mg/dL Critically high 74-106 [facility] Comment on above: Performed By: #### P OCGLUC ####[facility] Fbsgxxlazk523[address] [place], [place] [address]Dr. Areli Yousif PROF CHEM 8 (BAS METB)on Anion gap [Moles/Vol] 15.2 mmol/L Normal [facility] Comment on above: Performed By: #### B MP ####[facility] Esosilqulg359[address] [place], [place] [address]Dr. Tabbytulio Benja Calcium [Mass/Vol] 8.8 mg/dL Normal 8.5-10.1 [facility] Comment on above: Performed By: #### B MP ####[facility] Kkwqmsdcoz534[address] [place], [place] [address]Dr. Areli Yousif Chloride [Moles/Vol] 104 mmol/L Normal 98-107 [facility] Comment on above: Performed By: #### B MP ####[facility] Aeoytwaxja0411[address] [place], [place] [address]Dr. Areli Yousif CO2 [Moles/Vol] 20.1 mmol/L Critically low 21.0-32.0 [facility] Comment on above: Performed By: #### B MP ####[facility] Sqassfskhp3580[address] [place], [place] [address]Dr. Areli Yousif Creatinine [Mass/Vol] 0.96 mg/dL Normal 0.70-1.30 [facility] Comment on above: Performed By: #### B MP ####[facility] Zlmzmgqcwi2849[address] [place], [place] [address]Dr. Areli Yousif EGFR-AF CZECH >60 Normal >=60 [facility] Comment on above: Performed By: #### B MP ####[facility] Veyxuvujft3218[address] [place], [place] [address]Dr. Areli Yousif EGFR-NON AF CZECH >60 Normal >=60 [facility] Comment on above: Performed By: #### B MP ####[facility] Ncxgnbmrfh589[address] [place], [place] [address]Dr. Areli Yousif Glucose [Mass/Vol] 129 mg/dL Critically high 74-106 [facility] Comment on above: Performed By: #### B MP ####[facility] Qhmwpbnewn038[address] [place], [place] [address]Dr. Areli Yousif Potassium [Moles/Vol] 4.3 mmol/L Normal 3.5-5.1 [facility] Comment on above: Performed By: #### B MP ####[facility] Xmvusrwhyz287[address] [place], [place] [address]Dr. Areli Yousif Sodium [Moles/Vol] 135 mmol/L Critically low 136-145 [facility] Comment on above: Performed By: #### B MP ####[facility] Cptzkaajlp133[address] [place], [place] [address]Dr. Areli Yousif Urea nitrogen [Mass/Vol] 29.0 mg/dL Critically high 7.0-18.0 [facility] Comment on above: Performed By: #### B MP ####[facility] Oeuetcxkgt5195[address] [place], [place] [address]Dr. Areli Yousif Urea nitrogen/Creatinine [Mass ratio] 30.2 mg/mg Normal [facility] Comment on above: Performed By: #### B MP ####[facility] Gxepmpvqxi3827[address] [place], [place] [address]Dr. Areli Yousif TSHon 10-04-2022 TSH 3.433 uIU/mL Normal 0.358-3.740 [facility] Comment on above: Performed By: #### F T3, TSH ####[facility] Xvqpvnynsr3340[address] [place], [place] [address]Dr. Areli Yousif VIT B12 AND FOLATEon 022 Cobalamin (Vitamin B12) [Mass/Vol] 263.0 pg/mL Normal 193.0-986.0 [facility] Comment on above: Performed By: #### V ITAD, FT4, B12FOL, FETIBC ####[facility] Nifhsruynx0725[address] [place], [place] [address]Dr. Areli Yousif FOLATE 21.40 ng/mL Normal 8.60-58.90 [facility] Comment on above: Performed By: #### V ITAD, FT4, B12FOL, FETIBC ####[facility] Nrsfeygais5795[address] [place], [place] [address]Dr. Areli Benja VITAMIN D 25 OHon 10-04-2022 VIT D 25-OH 41.6 ng/mL Normal [facility] Comment on above: Performed By: #### V ITAD, FT4, B12FOL, FETIBC ####[facility] Jbrdwziaps6912 [place] [address]Dr. Areli Yousif VIT D RANGES SEE BELOW Normal [facility] Comment on above: Result Comment: <20 ng/mL Vit D deficient 20 - <30 ng/mL Vit D insufficient 30 - 100 ng/mL Vit D sufficient >100 ng/mL Potential Toxicity Performed By: #### V ITAD, FT4, B12FOL, FETIBC ####[facility] Ecpqbcmdff6295 [place] [address]Dr. Areli Yousif CARDIAC ASHLEY ADMITon 022 CK [Catalytic activity/Vol] 49 U/L Normal 39-308 [facility] Comment on above: Performed By: #### C BEE, CMP ####[facility] Gqwzchidsd0558 [place] [address]Dr. Areli Yousif CK.MB [Mass/Vol] 1.02 ng/mL Normal <=3.60 [facility] Comment on above: Performed By: #### C SANDRAM, CMP ####[facility] Snzwrimhmd3452 [place] [address]Dr. Areli Yousif HSTROP 12.8 pg/mL Normal 4.0-76.1 [facility] Comment on above: Result Comment: CUT- OFF POINTS HAVE BEEN ESTABLISHED BASED ON THE FOURTH UNIVERSAL DEFINITIONS OF MYOCARDIALINFARCTION. THE UPPER REFERENCE LIMIT (URL) OF TROPONIN, DEFINED THE 99TH PERCENTILE OFcTnI DISTRIBUTION IN A REFERENCE POPULATION, HAS BEEN CONFIRMED THE DECISION THRESHOLDFOR LA DIAGNOSIS. Performed By: #### C MADM, CMP ####[facility] Ssadobjrpp4495 [place] [address]Dr. Areli Yousif LAWRENCE 75 ng/mL Normal 16-96 [facility] Comment on above: Performed By: #### C MADM, CMP ####[facility] Kaymgjralx4830 [place] [address]Dr. Areli Yousif CBC AUTO DIFFon 10-03-2022 BASO # 0.0 103/ul Normal 0.0-0.1 [facility] Comment on above: Performed By: #### C BC ####[facility] Mrllczvhzg6765 [place] [address]Dr. Areli Yousif Basophils/100 WBC (Bld) 0.4 % Normal 0.2-2.0 [facility] Comment on above: Performed By: #### C BC ####[facility] Mivkrcfmwy5371 [place] [address]Dr. Areli Yousif EO # 0.4 103/ul Normal 0.0-0.7 [facility] Comment on above: Performed By: #### C BC ####[facility] Deqqtjzosr2480 [place] [address]Dr. Areli Yousif Eosinophils/100 WBC (Bld) 3.7 % Normal 0.9-7.0 [facility] Comment on above: Performed By: #### C BC ####[facility] Jyymanpqgx5527[address] [place], [place] [address]Dr. Areli Yousif Erythrocyte distribution width (RBC) [Ratio] 13.5 % Normal 11.0-15.0 [facility] Comment on above: Performed By: #### C BC ####[facility] Lwjqaqiebc459[address] [place], [place] [address]Dr. Areli Yousif Hematocrit (Bld) [Volume fraction] 33.7 % Critically low 42.0-54.0 [facility] Comment on above: Performed By: #### C BC ####[facility] Nrzqulhpqk760[address] [place], [place] [address]Dr. Areli Yousif Hemoglobin (Bld) [Mass/Vol] 11.2 g/dL Critically low 14.0-18.0 [facility] Comment on above: Performed By: #### C BC ####[facility] Wbxrrgtjgh[address] [place], [place] [address]Dr. Areli Yousif IG # 0.04 10e3/ul Critically high 0.00-0.03 [facility] Comment on above: Performed By: #### C BC ####[facility] Otwebzcrgz911[address] [place], [place] [address]Dr. Areli Yousif IG % 0.4 % Normal 0.0-0.5 [facility] Comment on above: Performed By: #### C BC ####[facility] Fiyqusqduq8951 [place] [address]Dr. Areli Benja LYMPH # 2.9 103/ul Normal 1.2-3.8 [facility] Comment on above: Performed By: #### C BC ####[facility] Kuudbpqlar6612 [place] [address]Dr. Tabbytulio Yousif Lymphocytes/100 WBC (Bld) 29.5 % Normal 20.5-60.0 [facility] Comment on above: Performed By: #### C BC ####[facility] Qpivvxrqxn3027 [place] [address]Dr. Areli Yousif MANUAL DIFF REQ NO Normal [facility] Comment on above: Performed By: #### C BC ####[facility] Vaoizlpamk054[address] [place], [place] [address]Dr. Areli Benja MCH (RBC) [Entitic mass] 29.8 pg Normal 25.9-34.0 [facility] Comment on above: Performed By: #### C BC ####[facility] Hskabmlutr4205[address] [place], [place] [address]Dr. Areli Yousif MCHC (RBC) [Mass/Vol] 33.2 g/dL Normal 29.9-35.2 [facility] Comment on above: Performed By: #### C BC ####[facility] Mibwtjzqxx248[address] [place], [place] [address]Dr. Areli Yousif MCV (RBC) [Entitic vol] 89.6 fL Normal 80.0-94.0 [facility] Comment on above: Performed By: #### C BC ####[facility] Dslfocjyeq027[address] [place], [place] [address]Dr. Areli Yousif MONO # 0.6 103/ul Normal 0.3-0.8 [facility] Comment on above: Performed By: #### C BC ####[facility] Gikhwoygef355[address] [place], [place] [address]Dr. Areli Yousif Monocytes/100 WBC (Bld) 6.0 % Normal 1.7-12.0 [facility] Comment on above: Performed By: #### C BC ####[facility] Tcvoembluc3922 [place] [address]Dr. Areli Yousif NEUT # 5.9 103/ul Normal 1.4-6.5 [facility] Comment on above: Performed By: #### C BC ####[facility] Cjkxpityej1554 [place] [address]Dr. Areli Yousif Neutrophils/100 WBC (Bld) 60.0 % Normal 43.0-75.0 [facility] Comment on above: Performed By: #### C BC ####[facility] Cypmnhxkbw0292 [place] [address]Dr. Areli Yousif Platelet mean volume (Bld) [Entitic vol] 11.2 fL Normal 9.5-13.5 [facility] Comment on above: Performed By: #### C BC ####[facility] [id number] [place], [place] [address]Dr. Areli Yousif PLT 270 103/ul Normal 150-450 [facility] Comment on above: Performed By: #### C BC ####[facility] [id number] [place], [place] [address]Dr. Areli Yousif RBC 3.76 106/ul Critically low 4.70-6.10 [facility] Comment on above: Performed By: #### C BC ####[facility] [id number] [place], [place] [address]Dr. Areli Yousif WBC 9.9 103/ul Normal 4.0-11.0 [facility] Comment on above: Performed By: #### C BC ####[facility] [id number] [place] [id number]. Areli Yousif CULTURE BLOODon 10-03-2022 Microscopic examination of blood, culture Culture Observations: NO GROWTH AT 5 DAYS. Normal [facility] Comment on above: Performed By: #### B LDCX2 ####[facility] Mpaqpepqpg[address] [place], [place] [address]Dr. Areli Yousif Performed By: #### B LDCX1 ####[facility] Znuawsctpr8582 [place] [address]Dr. Areli Yousif Covid-19 PCR (CVDTB)on 09-06 SARS-CoV-2 (COVID-19) RNA MANSI+probe Ql (Unsp spec) Not detected Normal NOT DETECTED [facility] Comment on above: Result Comment: When [...] for this test is supported by the Call Center Support Representative of Health and Human Service's declaration that [...] be used). Performed By: #### C VDTBH ####[facility] Qojgecxznk[address] [place], [place] [address]Dr. Areli Yousif ER URINE PROFILEon 2 Bilirubin Ql (U) Negative Normal NEGATIVE [facility] Comment on above: Performed By: #### JOURDAN RIVERA ####[facility] Aqqiszeiog209[address] [place], [place] [address]Dr. Areli Yousif Clarity (U) CLEAR Normal CLEAR [facility] Comment on above: Performed By: #### JOURDAN RIVERA ####[facility] Sezclfsxox437[address] [place], [place] [address]Dr. Areli Yousif Color (U) LT. YELLOW Normal YELLOW [facility] Comment on above: Performed By: #### JOURDAN RIVERA ####[facility] Jydahwyayy254[address] [place], [place] [address]Dr. Areli Yousif ERUAHD A micrscopic examination will be performed if indicated. Normal [facility] Comment on above: Performed By: #### Sid BARKER UMICRO ####[facility] Imtipjtzzr[address] [place], [place] [address]Dr. Areli Yousif Glucose Ql (U) 100 mg/dl Abnormal NEGATIVE [facility] Comment on above: Performed By: #### Sid BARKER UMICRO ####[facility] Ltqpdjremg5[address] [place], [place] [address]Dr. Areli Yousif Hemoglobin Ql (U) SMALL Abnormal NEGATIVE [facility] Comment on above: Performed By: #### Sid BARKER UMICRO ####[facility] Socfbgsdou17[address] [place], [place] [address]Dr. Areli Yousif Ketones Ql (U) Negative Normal NEGATIVE [facility] Comment on above: Performed By: #### Sid BARKER UMICRO ####[facility] Nbroiimyio[address] [place], [place] [address]Dr. Areli Yousif LEUKOCYTES MODERATE Abnormal NEGATIVE [facility] Comment on above: Performed By: #### Sid BARKER UMICRO ####[facility] Whkajvaqqn[address]67[address] [place], [place] [address]Dr. Areli Yousif Nitrite Ql (U) Positive Abnormal NEGATIVE [facility] Comment on above: Performed By: #### Sid BARKER UMICRO ####[facility] Dqiidsxiwz[address] [place], [place] [address]Dr. Areli Yousif pH (U) 5.5 [pH] Normal 5-9 [facility] Comment on above: Performed By: #### Sid BARKER UMICRO ####[facility] Sulldqvwoj[address] [place], [place] [address]Dr. Areli Yousif Protein (U) [Mass/Vol] 100 mg/dL Abnormal NEGAT TIMOTHY/ TRACE [facility] Comment on above: Performed By: #### Sid BARKER UMICRO ####[facility] Cldwhwaccg[address] [place], [place] [address]Dr. Areli Yousif SPEC GRAVITY 1.020 Normal 1.005-<=1.[address] [facility] Comment on above: Performed By: #### DWIGHT RIVERARO ####[facility] Rikmikbzpe[address] [place] [address]Dr. Areli Yousif UR MICRO IND INDICATED Normal [facility] Comment on above: Performed By: #### DWIGHT RIVERARO ####[facility] Ffurujvxzb2688 [place] [address]Dr. Areli Yousif Urobilinogen Qn (U) 0.2 {Alyssia'U}/dL Normal 0.2 - 1. 0 [facility] Comment on above: Performed By: #### Sid [facility]ER [facility] ####[facility] Wyqrsrbych9934 [place] [address]Dr. Tabbytulio Yousif LACTATE/LACTIC ACIDon 2021 Lactate [Moles/Vol] 2.2 mmol/L Critically high 0.4-1.9 [facility] Comment on above: Performed By: #### L ACT ####[facility] Cugvlaiybq[address] [place], [place] [address]Dr. Areli Yousif POINT OF CARE GLUCOSEon 09-06-2021 Glucose [Mass/Vol] 280 mg/dL Critically high 74-106 [facility] Comment on above: Performed By: #### P OCGLUC ####[facility] Mdhwiimhet1460 [place] [address]Dr. Areli Yousif Glucose [Mass/Vol] 246 mg/dL Critically high 74-106 [facility] Comment on above: Performed By: #### P OCGLUC ####[facility] Dyyabmimzo5001 [place] [address]Dr. Tabbytulio Yousif PROF 14(COMP METB)on 022 Albumin [Mass/Vol] 2.9 g/dL Critically low 3.4-5.0 [facility] Comment on above: Performed By: #### C BEE, CMP ####[facility] Qkioxipojh1504 [place] [address]Dr. Areli Yousif Albumin/Globulin [Mass ratio] 0.8 {ratio} Normal [facility] Comment on above: Performed By: #### C BEE, CMP ####[facility] Oafqagtkvo9[address] [place] [address]Dr. Areli Yousif ALP [Catalytic activity/Vol] 77 U/L Normal 46-116 [facility] Comment on above: Performed By: #### C BEE, CMP ####[facility] Nkiwvyqvxr7199 [place] [address]Dr. Areli Yousif ALT [Catalytic activity/Vol] 11 U/L Critically low 16-63 [facility] Comment on above: Performed By: #### C BEE, CMP ####[facility] Ziflwaktsm8734 [place] [address]Dr. Areli Yousif Anion gap [Moles/Vol] 16.3 mmol/L Normal [facility] Comment on above: Performed By: #### C BEE, CMP ####[facility] Dagnndkxoj6218 [place] [address]Dr. Tabbytulio Yousif AST [Catalytic activity/Vol] 13 U/L Critically low 15-37 [facility] Comment on above: Performed By: #### C BEE, CMP ####[facility] Epxecajtsi9839 [place] [address]Dr. Tabbytulio Yousif Bilirubin [Mass/Vol] 0.2 mg/dL Normal 0.2-1.0 [facility] Comment on above: Performed By: #### C BEE, CMP ####[facility] Ssufzzgadu[address] [place], [place] [address]Dr. Areli Yousif Calcium [Mass/Vol] 9.0 mg/dL Normal 8.5-10.1 [facility] Comment on above: Performed By: #### C BEE, CMP ####[facility] Qpbvtfywtt3885 [place] [address]Dr. Tabbytulio Yousif Chloride [Moles/Vol] 103 mmol/L Normal 98-107 [facility] Comment on above: Performed By: #### C BEE, CMP ####[facility] Bdoktwsekf8637 [place] [address]Dr. Areli Yousif CO2 [Moles/Vol] 20.9 mmol/L Critically low 21.0-32.0 [facility] Comment on above: Performed By: #### C MADM, CMP ####[facility] Rlrwrsahva1134 [place] [address]Dr. Areli Yousif Creatinine [Mass/Vol] 1.29 mg/dL Normal 0.70-1.30 [facility] Comment on above: Performed By: #### C MADM, CMP ####[facility] Ygkorfrlua4950 [place] [address]Dr. Areli Yousif EGFR-AF CZECH >67 Normal >=60 [facility] Comment on above: Performed By: #### C MADM, CMP ####[facility] Rvxujjjayy9029 [place] [address]Dr. Areli Yousif EGFR-NON AF CZECH 55 mL/min/1.73m2 Critically low >=60 [facility] Comment on above: Performed By: #### C MADM, CMP ####[facility] Kxyyuhqbxa1501 [place] [address]Dr. Areli Yousif Globulin (S) [Mass/Vol] 3.7 g/dL Normal [facility] Comment on above: Performed By: #### C MADM, CMP ####[facility] Dvapdyjbqa9508 [place] [address]Dr. Areli Yousif Glucose [Mass/Vol] 245 mg/dL Critically high 74-106 T [facility] Comment on above: Performed By: #### C MADM, CMP ####[facility] Iusjiimwpp4223 [place] [address]Dr. Areli Yousif Potassium [Moles/Vol] 5.2 mmol/L Critically high 3.5-5.1 [facility] Comment on above: Performed By: #### C MADM, CMP ####[facility] Zuqyfmrtbw8123 [place] [address]Dr. Areli Yousif Protein [Mass/Vol] 6.6 g/dL Normal 6.4-8.2 [facility] Comment on above: Performed By: #### C MADM, CMP ####[facility] Cccqufclhf5007 [place] [address]Dr. Areli Yousif Sodium [Moles/Vol] 135 mmol/L Critically low 136-145 Th [facility] Comment on above: Performed By: #### C BEE, CMP ####[facility] Ljadmlmxun[address] [place], [place] [address]Dr. Areli Yousif Urea nitrogen [Mass/Vol] 43.0 mg/dL Critically high 7.0-18.0 [facility] Comment on above: Performed By: #### C BEE, CMP ####[facility] Kfkrjlsniy[address] [place], [place] [address]Dr. Areli Yousif Urea nitrogen/Creatinine [Mass ratio] 33.3 mg/mg Normal [facility] Comment on above: Performed By: #### C BEE, CMP ####[facility] Jiehzffucr[address] [place], [place] [address]Dr. Areli Yousif PROTIMEon 10-03-2022 INR Coag (PPP) [Relative time] 1.06 {INR} Normal [facility] Comment on above: Performed By: #### P T, PTT ####[facility] Qnungvuvqj[address] [place], [place] [address]Dr. Areli Yousif INR GUIDELINES SEE BELOW Normal [facility] Comment on above: Result Comment: LANDON RED INR: 2.0 - 3.0 CONDITIONS NOT LISTED BELOW 2.5 - 3.5 FOR PROSTHETIC HEART VALVE REPLACEMENT 2.5 - 3.5 RECURRENT THROMBOSIS Performed By: #### P T, PTT ####[facility] Smuydxhlgk[address] [place], [place] [address]Dr. Areli Yousif PT Coag (PPP) [Time] 11.4 s Normal 9.0-11.6 [facility] Comment on above: Performed By: #### P T, PTT ####[facility] Fxomqvctia[address] [place], [place] [address]Dr. Areli Yousif PTTon 10-03-2022 aPTT Coag (Bld) [Time] 25.6 s Normal 22.3-36.2 Th [facility] Comment on above: Performed By: #### P T, PTT ####[facility] Idjfrdfekp[address] [place], [place] [address]Dr. Areli Yousif URINE MICROSCOPIC ONLYon BACTERIA LARGE Abnormal NONE SEEN [facility] Comment on above: Performed By: #### PALMA RIVERAICRO ####[facility] Wwrnvgcjar3802 [place] [address]Dr. Areli Yousif Bacteria identified Cx Nom (U) INDICATED Normal [facility] Comment on above: Performed By: #### Sid BARKER UMICRO ####[facility] Vvqvbxlbph1287 [place] [address]Dr. Areli Yousif CAST NONE SEEN Normal NONE SEEN [facility] Comment on above: Performed By: #### Sid BARKER UMICRO ####[facility] Lxuydreloh9707 [place] [address]Dr. Areli Yousif Crystals LM Nom (Urine sed) NONE SEEN Normal NONE SEEN [facility] Comment on above: Performed By: #### Sid BARKER UMICRO ####[facility] Wrobzxjhhl2414 [place] [address]Dr. Areli Yousif Epithelial cells LM Ql (Urine sed) FEW Abnormal NONE SEEN /RARE [facility] Comment on above: Performed By: #### Sid BARKER UMICRO ####[facility] Bryhsqnoid[address] [place], [place] [address]Dr. Areli Yousif MUCOUS TRACE Abnormal NONE SEEN [facility] Comment on above: Performed By: #### Sid BARKER UMICRO ####[facility] Joamnfqylr2886 [place] [address]Dr. Areli Yousif RBC 10-20 Abnormal 0-2 [facility] Comment on above: Performed By: #### Sid BARKER UMICRO ####[facility] Mcplvuqwaa8[address] [place] [address]Dr. Areli Yousif WBC 20-50 Abnormal NONE SEEN [facility] Comment on above: Performed By: #### Sid BARKER UMICRO ####[facility] Eyifgcctjk0613 [place] [address]Dr. Areli Yousif XR CHEST 1 Von 10-03-2022 XR CHEST 1 V Normal [facility] XR HUMERUS RT MIN 2 Von 3 XR HUMERUS RT MIN 2 V Normal [facility] XR SHOULDER RT 2V or >on XR SHOULDER RT 2V or > Normal [facility] XR shoulder RT min 2V*on XR shoulder RT min 2V* [facility] [employer] Other XR shoulder RT min 2V* [facility] [employer] Other XR shoulder RT min 2V* [address] [place] [address] [employer] Other XR shoulder RT min 2V* [place] [address] [employer] Other XR shoulder RT min 2V* XRay Report N cox monett [employer] Other XR shoulder RT min 2V* Signed No rt [employer] Other XR shoulder RT min 2V* Patient: Otilio Suarez MR#: [id number] [place] [employer] Other XR shoulder RT min 2V* 3 No rt [employer] Other XR shoulder RT min 2V* : 1955 Acct:[id number] [employer] Other XR shoulder RT min 2V* Age/Sex: 66 / M A DM Date: 10/01/22 [employer] Other XR shoulder RT min 2V* Loc: XDUCLY Room: Type: REG CLI [employer] Other XR shoulder RT min 2V* Attending Dr: Lorene Norris [employer] Other XR shoulder RT min 2V* Copies to: Ana Norris [employer] Other XR shoulder RT min 2V* Ordering Provider : Ana Norris APRN [employer] Other XR shoulder RT min 2V* Date of Service: 10/01/22 [employer] Other XR shoulder RT min 2V* XR/XR shoulder RT min 2V*: Injury [employer] Other XR shoulder RT min 2V* 3 views plain filmright shoulder [employer] Other XR shoulder RT min 2V* HISTORY:Fell inju ring right shoulder. Limited range of motion. [employer] Other XR shoulder RT min 2V* COMPARISON:None [employer] Other XR shoulder RT min 2V* Potential nondisp laced fracture of the greater tuberosity identified. Calcific changes of the [employer] Other XR shoulder RT min 2V* rotator cuff pres ent. No fracture of the distal clavicle identified.Mild degenerative changes. [employer] Other XR shoulder RT min 2V* 0 XR/XR shoulder RT min 2V* [employer] Other XR shoulder RT min 2V* IMPRESSION:Fractu re of distal clavicle. Potential nondisplaced fracture of greater tuberosity. [employer] Other XR shoulder RT min 2V* Calcific tendinop athy of rotator cuff. [employer] Other XR shoulder RT min 2V* Impression dictat ed by: Adalberto Moctezuma M.D.10/01/2022 11:11 AM [employer] Other XR shoulder RT min 2V* Dictation Locatio n: RADIO-PC-12 [employer] Other XR shoulder RT min 2V* Transcribed By: Priscilla HENDRIX 10/01/22 1111 [employer] Other XR shoulder RT min 2V* Dictated By: Adalberto Moctezuma DO 10/01/22 1108 [employer] Other XR shoulder RT min 2V* Signed By: [facility] [employer] Other XR shoulder RT min 2V* 10/01/22 9449 [facility] [employer] Other XR shoulder RT min 2V* [facility] [place] [address] [place] [id number] XRay Report Signed Patient: Otilio Suarez MR#: [id number] 3 : 1955 Acct:[id number] Age/Sex: 66 / M ADM Date: 10/01/22 [facility]: Type: [facility] Attending Dr: Ana Norris APRN Copies to: [...] Adalberto Moctezuma M.D.10/01/2022 11:11 AM Dictation Location: [place] [address] Transcribed By: [facility] 10/01/22 1111 Dictated By: Adalberto Moctezuma DO 10/01/22 1108 Signed By: 10/01/22 1111 Normal [facility] CULTURE URINEon 08-16-2022 CULTURE URINE Normal [facility] Comment on above: Performed By: #### U RCX ####[facility] Dwwzkaqyrt4685 [place], [place] [address]Pf. Areli Yousif BNPon 08-15-2022 Natriuretic peptide B (Bld) [Mass/Vol] 874.0 pg/mL Normal <=900.0 [facility] Comment on above: Performed By: #### C MP, CMADM, BNP ####[facility] Fvjzoknxat0591 [place] [address]Dr. Areli Yousif CARDIAC ASHLEY ADMITon 022 CK [Catalytic activity/Vol] 28 U/L Critically low 39-308 [facility] Comment on above: Performed By: #### C MP, CMADM, BNP ####[facility] Acicimkgez5937 [place] [address]Dr. Areli Yousif CK.MB [Mass/Vol] 1.11 ng/mL Normal <=3.60 The [facility] Comment on above: Performed By: #### C MP, CMADM, BNP ####[facility] Hrbyhnphlf8539 [place] [address]Dr. Tabbytulio Yousif HSTROP 14.4 pg/mL Normal 4.0-76.1 [facility] Comment on above: Result Comment: CUT- OFF POINTS HAVE BEEN ESTABLISHED BASED ON THE FOURTH UNIVERSAL DEFINITIONS OF MYOCARDIALINFARCTION. THE UPPER REFERENCE LIMIT (URL) OF TROPONIN, DEFINED THE 99TH PERCENTILE OFcTnI DISTRIBUTION IN A REFERENCE POPULATION, HAS BEEN CONFIRMED THE DECISION THRESHOLDFOR LA DIAGNOSIS. Performed By: #### C MP, CMADM, BNP ####[facility] Bkndwyithf1417 [place] [address]Dr. Areli Yousif LAWRENCE 63 ng/mL Normal 16-96 [facility] Comment on above: Performed By: #### C MP, CMADM, BNP ####[facility] Iqoyljndqg2173 [place] [address]Dr. Areli Yousif CBC AUTO DIFFon 08-15-2022 BASO # 0.1 103/ul Normal 0.0-0.1 [facility] Comment on above: Performed By: #### C BC ####[facility] Kwouaauzkz7689 [place] [address]Dr. Areli Yousif Basophils/100 WBC (Bld) 0.5 % Normal 0.2-2.0 [facility] Comment on above: Performed By: #### C BC ####[facility] Zqzprluewe1594 [place] [address]Dr. Areli Yousif EO # 0.2 103/ul Normal 0.0-0.7 [facility] Comment on above: Performed By: #### C BC ####[facility] Ygxhivqpbf4668 [place] [address]Dr. Areli Yousif Eosinophils/100 WBC (Bld) 2.5 % Normal 0.9-7.0 [facility] Comment on above: Performed By: #### C BC ####[facility] Iucpknmddz2335 [place] [address]Dr. Areli Yousif Erythrocyte distribution width (RBC) [Ratio] 13.7 % Normal 11.0-15.0 [facility] Comment on above: Performed By: #### C BC ####[facility] Unlicwgyks[address] [place], [place] [address]Dr. Areli Yousif Hematocrit (Bld) [Volume fraction] 32.0 % Critically low 42.0-54.0 [facility] Comment on above: Performed By: #### C BC ####[facility] W[address]vqzwrcki[address] [place], [place] [address]Dr. Areli Yousif Hemoglobin (Bld) [Mass/Vol] 10.3 g/dL Critically low 14.0-18.0 [facility] Comment on above: Performed By: #### C BC ####[facility] Xgfmpaeill[address] [place], [place] [address]Dr. Areli Yousif IG # 0.05 10e3/ul Critically high 0.00-0.03 [facility] Comment on above: Performed By: #### C BC ####[facility] Njflqknfwn[address] [place], [place] [address]Dr. Areli Yousif IG % 0.5 % Normal 0.0-0.5 [facility] Comment on above: Performed By: #### C BC ####[facility] Ztccykermd[address] [place], [place] [address]Dr. Areli Yousif LYMPH # 2.7 103/ul Normal 1.2-3.8 [facility] Comment on above: Performed By: #### C BC ####[facility] Wlrgotpnvm[address] [place], [place] [address]Dr. Areli Yousif Lymphocytes/100 WBC (Bld) 29.1 % Normal 20.5-60.0 [facility] Comment on above: Performed By: #### C BC ####[facility] Cubgnzzmjh0904 [place] [address]Dr. Areli Yousif MANUAL DIFF REQ NO Normal [facility] Comment on above: Performed By: #### C BC ####[facility] Fsdbftxizp9333 [place] [address]Dr. Areli Yousif MCH (RBC) [Entitic mass] 29.3 pg Normal 25.9-34.0 [facility] Comment on above: Performed By: #### C BC ####[facility] Wrjmzxfsvd9606 [place] [address]Dr. Areli Yousif MCHC (RBC) [Mass/Vol] 32.2 g/dL Normal 29.9-35.2 [facility] Comment on above: Performed By: #### C BC ####[facility] Jmrctbdmkp[address] [place], [place] [address]Dr. Areli Yousif MCV (RBC) [Entitic vol] 90.9 fL Normal 80.0-94.0 [facility] Comment on above: Performed By: #### C BC ####[facility] Uxhmfoikby269[address] [place], [place] [address]Dr. Areli Yousif MONO # 0.7 103/ul Normal 0.3-0.8 [facility] Comment on above: Performed By: #### C BC ####[facility] Mhsravmqam7413 [place] [address]Dr. Areli Yousif Monocytes/100 WBC (Bld) 7.3 % Normal 1.7-12.0 [facility] Comment on above: Performed By: #### C BC ####[facility] Jyuyvxmjno230[address] [place], [place] [address]DrDenae Yousif NEUT # 5.6 103/ul Normal 1.4-6.5 [facility] Comment on above: Performed By: #### C BC ####[facility] [address]vgzloulve[address] [place], [place] [address]DrDenae Yousif Neutrophils/100 WBC (Bld) 60.1 % Normal 43.0-75.0 [facility] Comment on above: Performed By: #### C BC ####[facility] Pdxptipqax0693 [place] [address]Dr. Areli Yousif Platelet mean volume (Bld) [Entitic vol] 10.7 fL Normal 9.5-13.5 [facility] Comment on above: Performed By: #### C BC ####[facility] Mbuzwpiegb8702 [place] [address]Dr. Areli Yousif PLT 283 103/ul Normal 150-450 [facility] Comment on above: Performed By: #### C BC ####[facility] Xaznerosjq3563 [place] [address]Dr. Areli Yousif RBC 3.52 106/ul Critically low 4.70-6.10 [facility] Comment on above: Performed By: #### C BC ####[facility] Sbxftgsltf7113 [place] [address]Dr. Areli Benja WBC 9.3 103/ul Normal 4.0-11.0 [facility] Comment on above: Performed By: #### C BC ####[facility] Ongjgkhbxb9472 [place] [address]Dr. Areli Benja POINT OF CARE GLUCOSEon 08-05 Glucose [Mass/Vol] 245 mg/dL Critically high 74-106 [facility] Comment on above: Performed By: #### P OCGLUC ####[facility] Vgcsrjwrpu4822 [place] [address]Dr. Tabbytulio Yousif Glucose [Mass/Vol] 158 mg/dL Critically high 74-106 [facility] Comment on above: Performed By: #### P OCGLUC ####[facility] Bzaocrvvzu4430 [place] [address]Dr. Areli Yousif PROF 14(COMP METB)on 022 Albumin [Mass/Vol] 2.9 g/dL Critically low 3.4-5.0 [facility] Comment on above: Performed By: #### C MP, CMADM, BNP ####[facility] Bwocjnrydm7326 [place] [address]Dr. Tabbytulio Yousif Albumin/Globulin [Mass ratio] 0.8 {ratio} Normal [facility] Comment on above: Performed By: #### C MP CMADM, BNP ####[facility] Yibtjaqzjh7113 [place] [address]Dr. Areli Yousif ALP [Catalytic activity/Vol] 62 U/L Normal 46-116 [facility] Comment on above: Performed By: #### C MP, CMADM, BNP ####[facility] Tyuyisxevw9308 [place] [address]Dr. Tabbytulio Yousif ALT [Catalytic activity/Vol] 15 U/L Critically low 16-63 [facility] Comment on above: Performed By: #### C MP CMADM, BNP ####[facility] Jnddmrnfgm4773 [place] [address]Dr. Areli Yousif Anion gap [Moles/Vol] 13.5 mmol/L Normal [facility] Comment on above: Performed By: #### C ALIDA CMADM, BNP ####[facility] Nzuybiidio8425 [place] [address]Dr. Tabbytulio Yousif AST [Catalytic activity/Vol] 8 U/L Critically low 15-37 [facility] Comment on above: Performed By: #### C ALIDA, CMADM, BNP ####[facility] Gmzpdzkcet2274 [place] [address]Dr. Areli Yousif Bilirubin [Mass/Vol] 0.2 mg/dL Normal 0.2-1.0 [facility] Comment on above: Performed By: #### C MP, CMADM, BNP ####[facility] Impoqkvauy0216 [place] [address]Dr. Areli Yousif Calcium [Mass/Vol] 8.5 mg/dL Normal 8.5-10.1 [facility] Comment on above: Performed By: #### C MP, CMADM, BNP ####[facility] Rwlcjucpxj0219 [place] [address]Dr. Areli Yousif Chloride [Moles/Vol] 105 mmol/L Normal 98-107 [facility] Comment on above: Performed By: #### C ALIDA CMADM, BNP ####[facility] Uzbtiftlot9379 [place] [address]Dr. Areli Yousif CO2 [Moles/Vol] 22.8 mmol/L Normal 21.0-32.0 [facility] Comment on above: Performed By: #### C MP, CMADM, BNP ####[facility] Wwgyfcqgeh7494 [place] [address]Dr. Areli Yousif Creatinine [Mass/Vol] 1.09 mg/dL Normal 0.70-1.30 [facility] Comment on above: Performed By: #### C MP, CMADM, BNP ####[facility] Jfybffjzgl5425 [place] [address]Dr. Areli Yousif EGFR-AF CZECH >60 Normal >=60 [facility] Comment on above: Performed By: #### C MP, CMADM, BNP ####[facility] Ufhwenfvmd8800 [place] [address]Dr. Areli Benja EGFR-NON AF CZECH >60 Normal >=60 [facility] Comment on above: Performed By: #### C MP, CMADM, BNP ####[facility] Wrypcebqfg9113 [place] [address]Dr. Areli Yousif Globulin (S) [Mass/Vol] 3.6 g/dL Normal [facility] Comment on above: Performed By: #### C MP, CMADM, BNP ####[facility] Svffmswotz0092 [place] [address]Dr. Areli Benja Glucose [Mass/Vol] 155 mg/dL Critically high 74-106 [facility] Comment on above: Performed By: #### C MP, CMADM, BNP ####[facility] Acsugnscjg5503 [place] [address]Dr. Areli Yousif Potassium [Moles/Vol] 4.3 mmol/L Normal 3.5-5.1 [facility] Comment on above: Performed By: #### C MP, CMADM, BNP ####[facility] Vlhzacoykq7758 [place] [address]Dr. Areli Benja Protein [Mass/Vol] 6.5 g/dL Normal 6.4-8.2 [facility] Comment on above: Performed By: #### C MP, CMADM, BNP ####[facility] Mcyyvdhnmk2786 [place] [address]Dr. Areli Yousif Sodium [Moles/Vol] 137 mmol/L Normal 136-145 [facility] Comment on above: Performed By: #### C MP, CMADM, BNP ####[facility] Iungvafoqg8874 [place] [address]Dr. Areli Yousif Urea nitrogen [Mass/Vol] 41.0 mg/dL Critically high 7.0-18.0 [facility] Comment on above: Performed By: #### C MP, CMADM, BNP ####[facility] [id number] [place] [address]Dr. Areli Yousif Urea nitrogen/Creatinine [Mass ratio] 37.6 mg/mg Normal [facility] Comment on above: Performed By: #### C MP, CMADM, BNP ####[facility] [id number] [place], [place] [address]Dr. Areli Benja BNPon 08-14-2022 Natriuretic peptide B (Bld) [Mass/Vol] 866.0 pg/mL Normal <=900.0 [facility] Comment on above: Performed By: #### B BAROMETERS CALIBRATOR, CMP, CMADM ####[facility] [id number] [place] [address]Dr. Areli Yousif CARDIAC ASHLEY ADMITon 022 CK [Catalytic activity/Vol] 43 U/L Normal 39-308 [facility] Comment on above: Performed By: #### B BAROMETERS CALIBRATOR, CMP, CMADM ####[facility] Gsdmrqxgah9[address] [place] [address]Dr. Areli Yousif CK.MB [Mass/Vol] 1.62 ng/mL Normal <=3.60 [facility] Comment on above: Performed By: #### B BAROMETERS CALIBRATOR, CMP, CMADM ####[facility] Muvxqigiyo60[address] [place] [address]Dr. Areli Yousif HSTROP 14.8 pg/mL Normal 4.0-76.1 [facility] Comment on above: Result Comment: CUT- OFF POINTS HAVE BEEN ESTABLISHED BASED ON THE FOURTH UNIVERSAL DEFINITIONS OF MYOCARDIALINFARCTION. THE UPPER REFERENCE LIMIT (URL) OF TROPONIN, DEFINED THE 99TH PERCENTILE OFcTnI DISTRIBUTION IN A REFERENCE POPULATION, HAS BEEN CONFIRMED THE DECISION THRESHOLDFOR LA DIAGNOSIS. Performed By: #### B BAROMETERS CALIBRATOR, CMP, CMADM ####[facility] Shsutltuvk[address] [place] [address]Dr. Areli Yousif LAWRENCE 81 ng/mL Normal 16-96 [facility] Comment on above: Performed By: #### B BAROMETERS CALIBRATOR, CMP, CMADM ####[facility] Fftaiaocju60[address] [place] [address]Dr. Areli Yousif CBC AUTO DIFFon 08-14-2022 BASO # 0.0 103/ul Normal 0.0-0.1 [facility] Comment on above: Performed By: #### C BC ####[facility] Cnmhhuhhyk[address] [place], [place] [address]Dr. Areli Yousif Basophils/100 WBC (Bld) 0.4 % Normal 0.2-2.0 [facility] Comment on above: Performed By: #### C BC ####[facility] Qedrvdeydy[address] [place], [place] [address]Dr. Areli Yousif EO # 0.3 103/ul Normal 0.0-0.7 [facility] Comment on above: Performed By: #### C BC ####[facility] Pepstasove[address] [place], [place] [address]Dr. Areli Yousif Eosinophils/100 WBC (Bld) 2.5 % Normal 0.9-7.0 [facility] Comment on above: Performed By: #### C BC ####[facility] Ucphqnobvn[address] [place], [place] [address]Dr. Areli Yousif Erythrocyte distribution width (RBC) [Ratio] 13.9 % Normal 11.0-15.0 [facility] Comment on above: Performed By: #### C BC ####[facility] Kztdbhhfab[address] [place], [place] [address]Dr. Areli Yousif Hematocrit (Bld) [Volume fraction] 34.9 % Critically low 42.0-54.0 [facility] Comment on above: Performed By: #### C BC ####[facility] Fgneursfjm6424 [place] [address]DrDenae Areli Benja Hemoglobin (Bld) [Mass/Vol] 11.3 g/dL Critically low 14.0-18.0 [facility] Comment on above: Performed By: #### C BC ####[facility] Clpvsehofr[address] [place], [place] [address]DrDenae Yousif IG # 0.02 10e3/ul Normal 0.00-0.03 [facility] Comment on above: Performed By: #### C BC ####[facility] Mwwlkkjwqt19[address] [place], [place] [address]DrDenae Yousif IG % 0.2 % Normal 0.0-0.5 [facility] Comment on above: Performed By: #### C BC ####[facility] Ssmqgirafu8[address] [place], [place] [address]DrDenae Yousif LYMPH # 3.4 103/ul Normal 1.2-3.8 [facility] Comment on above: Performed By: #### C BC ####[facility] Mopqjpbvja[address] [place], [place] [address]DrDenae Yousif Lymphocytes/100 WBC (Bld) 34.6 % Normal 20.5-60.0 [facility] Comment on above: Performed By: #### C BC ####[facility] Gezjwkjosj28[address] [place], [place] [address]DrDenae Yousif MANUAL DIFF REQ NO Normal [facility] Comment on above: Performed By: #### C BC ####[facility] Vtdoxpbgdy[address] [place], [place] [address]DrDenae Yousif MCH (RBC) [Entitic mass] 29.4 pg Normal 25.9-34.0 [facility] Comment on above: Performed By: #### C BC ####[facility] Ewvcxvzkov57[address] [place], [place] [address]DrDenae Yousif MCHC (RBC) [Mass/Vol] 32.4 g/dL Normal 29.9-35.2 [facility] Comment on above: Performed By: #### C BC ####[facility] Hirugmqnib7976 [place] [address]DrDenae Yousif MCV (RBC) [Entitic vol] 90.9 fL Normal 80.0-94.0 [facility] Comment on above: Performed By: #### C BC ####[facility] Fzaczvjxfy3572 [place] [address]DrDenae Yousif MONO # 0.7 103/ul Normal 0.3-0.8 [facility] Comment on above: Performed By: #### C BC ####[facility] Onviwchzmv7524 [place] [address]DrDenae Yousif Monocytes/100 WBC (Bld) 6.7 % Normal 1.7-12.0 [facility] Comment on above: Performed By: #### C BC ####[facility] Zvtnxnggem60[address] [place], [place] [address]DrDenae Yousif NEUT # 5.5 103/ul Normal 1.4-6.5 [facility] Comment on above: Performed By: #### C BC ####[facility] Qrhpiivbkb907[address] [place], [place] [address]DrDenae Yousif Neutrophils/100 WBC (Bld) 55.6 % Normal 43.0-75.0 [facility] Comment on above: Performed By: #### C BC ####[facility] Zyaicagszd419[address] [place], [place] [address]DrDenae Yousif Platelet mean volume (Bld) [Entitic vol] 10.1 fL Normal 9.5-13.5 [facility] Comment on above: Performed By: #### C BC ####[facility] Pqzunyeqlf[address] [place], [place] [address]DrDenae Yousif PLT 270 103/ul Normal 150-450 [facility] Comment on above: Performed By: #### C BC ####[facility] Etghxgwrzo4455 [place] [address]11DrDenae Yuosif RBC 3.84 106/ul Critically low 4.70-6.10 [facility] Comment on above: Performed By: #### C BC ####[facility] Wpkoxsnnns3873 [place] [address]Dr. Areli Yousif WBC 10.0 103/ul Normal 4.0-11.0 [facility] Comment on above: Performed By: #### C BC ####[facility] Gelbuzegot5[address] [place] [address]Dr. Areli Yousif CTA NECK WO W CONon 08-14-20 CTA NECK WO W CON Normal [facility] ECHOCARDIO M/2D COMPLETEon 10-14-2021 ECHOCARDIO M/2D COMPLETE Normal [facility] POINT OF CARE GLUCOSEon 08-05 Glucose [Mass/Vol] 386 mg/dL Critically high 74-106 [facility] Comment on above: Performed By: #### P OCGLUC ####[facility] Iuoubqpsex3685 [place] [address]Dr. Areli Yousif Glucose [Mass/Vol] 234 mg/dL Critically high 74-106 [facility] Comment on above: Performed By: #### P OCGLUC ####[facility] Qmwejnivgc5447 [place] [address]Dr. Areli Yousif Glucose [Mass/Vol] 146 mg/dL Critically high 74-106 [facility] Comment on above: Performed By: #### P OCGLUC ####[facility] Bgvcqndzsy9116 [place] [address]DrDenae Yousif PROF 14(COMP METB)on 022 Albumin [Mass/Vol] 3.0 g/dL Critically low 3.4-5.0 [facility] Comment on above: Performed By: #### B BAROMETERS CALIBRATOR, CMP, CMADM ####[facility] Ujwglctmkd2983 [place] [address]Dr. Areli Yousif Albumin/Globulin [Mass ratio] 0.8 {ratio} Normal [facility] Comment on above: Performed By: #### B BAROMETERS CALIBRATOR, CMP, CMADM ####[facility] Aomtlzuoju3650 [place] [address]Dr. Areli Yousif ALP [Catalytic activity/Vol] 69 U/L Normal 46-116 [facility] Comment on above: Performed By: #### B BAROMETERS CALIBRATOR, CMP, CMADM ####[facility] Ntzalzljoy5968 [place] [address]Dr. Areli Yousif ALT [Catalytic activity/Vol] 12 U/L Critically low 16-63 [facility] Comment on above: Performed By: #### B BAROMETERS CALIBRATOR, CMP, CMADM ####[facility] Ivcezpimwt1738 [place] [address]Dr. Areli Yousif Anion gap [Moles/Vol] 10.8 mmol/L Normal [facility] Comment on above: Performed By: #### B BAROMETERS CALIBRATOR, CMP, CMADM ####[facility] Ldaisifmul8006 [place] [address]Dr. Areli Yousif AST [Catalytic activity/Vol] 8 U/L Critically low 15-37 [facility] Comment on above: Performed By: #### B BAROMETERS CALIBRATOR, CMP, CMADM ####[facility] Zoousmfhsc4247 [place] [address]Dr. Areli Yousif Bilirubin [Mass/Vol] 0.3 mg/dL Normal 0.2-1.0 [facility] Comment on above: Performed By: #### B BAROMETERS CALIBRATOR, CMP, CMADM ####[facility] Ekyjtdvmrz7036 [place] [address]Dr. Areli Yousif Calcium [Mass/Vol] 8.8 mg/dL Normal 8.5-10.1 [facility] Comment on above: Performed By: #### B BAROMETERS CALIBRATOR, CMP, CMADM ####[facility] Jukxtpsxip8801 [place] [address]Dr. Areli Yousif Chloride [Moles/Vol] 104 mmol/L Normal 98-107 [facility] Comment on above: Performed By: #### B BAROMETERS CALIBRATOR, CMP, CMADM ####[facility] Epqjnpmaao9983 [place] [address]Dr. Areli Yousif CO2 [Moles/Vol] 24.6 mmol/L Normal 21.0-32.0 [facility] Comment on above: Performed By: #### B BAROMETERS CALIBRATOR, CMP, CMADM ####[facility] Zgkoipwucm1724 [place] [address]Dr. Areli Yousif Creatinine [Mass/Vol] 1.07 mg/dL Normal 0.70-1.30 [facility] Comment on above: Performed By: #### B BAROMETERS CALIBRATOR, CMP, CMADM ####[facility] Xnvlnukyon0221 [place], [place] [address]Hd. Areli Yousif EGFR-AF CZECH >60 Normal >=60 [facility] Comment on above: Performed By: #### B BAROMETERS CALIBRATOR, CMP, CMADM ####[facility] Vsqyrwstax5159 [place] [address]Dr. Areli Yousif EGFR-NON AF CZECH >60 Normal >=60 [facility] Comment on above: Performed By: #### B BAROMETERS CALIBRATOR, CMP, CMADM ####[facility] Nzeuuucevs4437 [place] [phone]. Areli Yousif Globulin (S) [Mass/Vol] 3.8 g/dL Normal [facility] Comment on above: Performed By: #### B BAROMETERS CALIBRATOR, CMP, CMADM ####[facility] Vfqgsslgtm3359 [place] [phone]. Areli Yousif Glucose [Mass/Vol] 90 mg/dL Normal 74-106 [facility] Comment on above: Performed By: #### B BAROMETERS CALIBRATOR, CMP, CMADM ####[facility] Xjevybiniu1923 [place] [phone]. Areli Yousif Potassium [Moles/Vol] 4.4 mmol/L Normal 3.5-5.1 [facility] Comment on above: Performed By: #### B BAROMETERS CALIBRATOR, CMP, CMADM ####[facility] Evftqjyyxz4500 [place] [phone]. Areli Yousif Protein [Mass/Vol] 6.8 g/dL Normal 6.4-8.2 [facility] Comment on above: Performed By: #### B BAROMETERS CALIBRATOR, CMP, CMADM ####[facility] Xjovatftll3130 [place] [phone]. Areli Yousif Sodium [Moles/Vol] 135 mmol/L Critically low 136-145 Th [facility] Comment on above: Performed By: #### B BAROMETERS CALIBRATOR, CMP, CMADM ####[facility] Ixupdwalkx8327 [place] [address]Dr. Tabbytulio Yousif Urea nitrogen [Mass/Vol] 38.0 mg/dL Critically high 7.0-18.0 [facility] Comment on above: Performed By: #### B BAROMETERS CALIBRATOR, CMP, CMADM ####[facility] Dnehkpyyiy7344 [place] [address]Dr. Areli Yousif Urea nitrogen/Creatinine [Mass ratio] 35.5 mg/mg Normal [facility] Comment on above: Performed By: #### B BAROMETERS CALIBRATOR, CMP, CMADM ####[facility] Cvyesfwgln5839 [place] [address]Dr. Areli Yousif BNPon 08-13-2022 Natriuretic peptide B (Bld) [Mass/Vol] 963.0 pg/mL Critically high <=900.0 [facility] Comment on above: Performed By: #### L IPA, CMADM, BNP, CMP ####[facility] Sxufjmvlni5047 [place] [address]Dr. Tabbytulio Benja CARDIAC ASHLEY ADMITon 022 CK [Catalytic activity/Vol] 48 U/L Normal 39-308 [facility] Comment on above: Performed By: #### L IPA, CMADM, BNP, CMP ####[facility] Kasazmxpyh5274 [place] [address]Dr. Tabbytulio Benja CK.MB [Mass/Vol] 1.17 ng/mL Normal <=3.60 [facility] Comment on above: Performed By: #### L IPA, CMADM, BNP, CMP ####[facility] Edoisgzwta2760 [place] [address]Dr. Areli Benja HSTROP 14.9 pg/mL Normal 4.0-76.1 [facility] Comment on above: Result Comment: CUT- OFF POINTS HAVE BEEN ESTABLISHED BASED ON THE FOURTH UNIVERSAL DEFINITIONS OF MYOCARDIALINFARCTION. THE UPPER REFERENCE LIMIT (URL) OF TROPONIN, DEFINED THE 99TH PERCENTILE OFcTnI DISTRIBUTION IN A REFERENCE POPULATION, HAS BEEN CONFIRMED THE DECISION THRESHOLDFOR LA DIAGNOSIS. Performed By: #### L IPA, CMADM, BNP, CMP ####[facility] Zofmokaesj0259 [place] [address]Dr. Tabbytulio Yousif LAWRENCE 86 ng/mL Normal 16-96 [facility] Comment on above: Performed By: #### L IPA, CMADM, BNP, CMP ####[facility] Xzedmbkigp9338 [place] [address]Dr. Areli Yousif CBC AUTO DIFFon 08-13-2022 BASO # 0.0 103/ul Normal 0.0-0.1 [facility] Comment on above: Performed By: #### C BC ####[facility] Grnhltekbp[address] [place], [place] [address]Dr. Areli Yousif Basophils/100 WBC (Bld) 0.3 % Normal 0.2-2.0 [facility] Comment on above: Performed By: #### C BC ####[facility] Bkltjpvbjw54[address] [place], [place] [address]Dr. Areli Yousif EO # 0.2 103/ul Normal 0.0-0.7 [facility] Comment on above: Performed By: #### C BC ####[facility] Eayktasxeo[address] [place], [place] [address]Dr. Areli Yousif Eosinophils/100 WBC (Bld) 2.2 % Normal 0.9-7.0 [facility] Comment on above: Performed By: #### C BC ####[facility] Pgkmteffec[address] [place], [place] [address]Dr. Areli Yousif Erythrocyte distribution width (RBC) [Ratio] 13.9 % Normal 11.0-15.0 [facility] Comment on above: Performed By: #### C BC ####[facility] Bzsxapymrn548[address] [place], [place] [address]Dr. Areli Yousif Hematocrit (Bld) [Volume fraction] 34.4 % Critically low 42.0-54.0 [facility] Comment on above: Performed By: #### C BC ####[facility] Mrpidryivy1069[address] [place], [place] [address]Dr. Areli Yousif Hemoglobin (Bld) [Mass/Vol] 11.1 g/dL Critically low 14.0-18.0 [facility] Comment on above: Performed By: #### C BC ####[facility] Sqcimyczfz7566 [place] [id number] Yousif IG # 0.06 10e3/ul Critically high 0.00-0.03 [facility] Comment on above: Performed By: #### C BC ####[facility] Wkmpzywdiz8131 [place] [address]Dr. Areli Yousif IG % 0.6 % Critically high 0.0-0.5 [facility] Comment on above: Performed By: #### C BC ####[facility] Yiovocyyqa05[address] [place], [place] [address]DrDenae Yousif LYMPH # 3.2 103/ul Normal 1.2-3.8 [facility] Comment on above: Performed By: #### C BC ####[facility] Foiewwoglo7816[address] [place], [place] [address]DrDenae Yousif Lymphocytes/100 WBC (Bld) 29.5 % Normal 20.5-60.0 [facility] Comment on above: Performed By: #### C BC ####[facility] Zekhlrduve8[address] [place], [place] [address]DrDenae Yousif MANUAL DIFF REQ NO Normal [facility] Comment on above: Performed By: #### C BC ####[facility] Excywtqjzm969[address] [place], [place] [address]DrDenae Yousif MCH (RBC) [Entitic mass] 29.5 pg Normal 25.9-34.0 [facility] Comment on above: Performed By: #### C BC ####[facility] Hcudsplwac67[address] [place], [place] [address]DrDenae Yousif MCHC (RBC) [Mass/Vol] 32.3 g/dL Normal 29.9-35.2 [facility] Comment on above: Performed By: #### C BC ####[facility] Kowkwdmavv634[address] [place], [place] [address]DrDenae Yousif MCV (RBC) [Entitic vol] 91.5 fL Normal 80.0-94.0 [facility] Comment on above: Performed By: #### C BC ####[facility] Gqfhifipge2213 [place] [address]DrDenae Areli Yousif MONO # 0.8 103/ul Normal 0.3-0.8 [facility] Comment on above: Performed By: #### C BC ####[facility] Yysnyikgon57[address] [place], [place] [address]DrDenae Areli Benja Monocytes/100 WBC (Bld) 7.4 % Normal 1.7-12.0 [facility] Comment on above: Performed By: #### C BC ####[facility] Pgyimqbpdv[address] [place], [place] [address]DrDenae Areli Yousif NEUT # 6.4 103/ul Normal 1.4-6.5 [facility] Comment on above: Performed By: #### C BC ####[facility] Ocemeurmyp[address] [place], [place] [address]DrDenae Mcnairtulio Benja Neutrophils/100 WBC (Bld) 60.0 % Normal 43.0-75.0 [facility] Comment on above: Performed By: #### C BC ####[facility] Dqoyjdydci075[address] [place], [place] [address]DrDenae Areli Yousif Platelet mean volume (Bld) [Entitic vol] 10.3 fL Normal 9.5-13.5 [facility] Comment on above: Performed By: #### C BC ####[facility] D[address]eagrmii[address] [place], [place] [address]DrDenae Mcnairtulio Benja PLT 282 103/ul Normal 150-450 [facility] Comment on above: Performed By: #### C BC ####[facility] Lsdycnlhzj[address] [place], [place] [address]DrDenae Yousif RBC 3.76 106/ul Critically low 4.70-6.10 [facility] Comment on above: Performed By: #### C BC ####[facility] Wnqxmninob164[address] [place], [place] [address]DrDenae Yousif WBC 10.7 103/ul Normal 4.0-11.0 [facility] Comment on above: Performed By: #### C BC ####[facility] Ewjdboufzm[address] [place] [address]Dr[address] Are[address] Yous[address] CT STROKE HEAD WOon 08-13-[address] STROKE HEAD WO Normal [facility] Covid-19 PCR (CVDTB)on SARS-CoV-2 (COVID-19) RNA MANSI+probe Ql (Unsp spec) Not detected Normal NOT DETECTED [facility] Comment on above: Result Comment: When [...] for this test is supported by the Call Center Support Representative of Health and Human Service's declaration that [...] be used). Performed By: #### C VDTBH ####[facility] Skxedmdhql7251 [place] [address]Dr. Areli Yousif ER URINE PROFILEon 2 Bilirubin Ql (U) Negative Normal NEGATIVE [facility] Comment on above: Performed By: #### E RUR ####[facility] Bpcndembqe9535 [place] [phone]. Areli Yousif Clarity (U) CLEAR Normal CLEAR [facility] Comment on above: Performed By: #### E RUR ####[facility] Hctvwyetah5869 [place] [phone]. Areli Yousif Color (U) LT. YELLOW Normal YELLOW [facility] Comment on above: Performed By: #### E RUR ####[facility] Rcvhubgirb5158 [place] [address]Dr. Areli ARIASD A micrscopic examination will be performed if indicated. Normal [facility] Comment on above: Performed By: #### E RUR ####[facility] Wpkpmockcv2203 [place] [address]Dr. Tabbytulio Benja Glucose Ql (U) Negative Normal NEGATIVE [facility] Comment on above: Performed By: #### E RUR ####[facility] Dvlusnpche5[address] [place], [place] [address]Dr. Tabbytulio Yousif Hemoglobin Ql (U) Negative Normal NEGATIVE [facility] Comment on above: Performed By: #### E RUR ####[facility] Jjtegwgeax57[address] [place], [place] [address]Dr. Areli Yousif Ketones Ql (U) Negative Normal NEGATIVE [facility] Comment on above: Performed By: #### E RUR ####[facility] Febtjixgua57[address] [place], [place] [address]Dr. Areli Yousif LEUKOCYTES Negative Normal NEGATIVE [facility] Comment on above: Performed By: #### E RUR ####[facility] Hhrwvgcnnm[address] [place], [place] [address]Dr. Areli Benja Nitrite Ql (U) Negative Normal NEGATIVE [facility] Comment on above: Performed By: #### E RUR ####[facility] Tnxvtahnfb67[address] [place], [place] [address]Dr. Areli Yousif pH (U) 6.0 [pH] Normal 5-9 [facility] Comment on above: Performed By: #### E RUR ####[facility] Xidhtzpqho002[address] [place], [place] [address]Dr. Areli Yousif Protein (U) [Mass/Vol] 30 mg/dL Abnormal NEGAT TIMOTHY/ TRACE [facility] Comment on above: Performed By: #### E RUR ####[facility] Uealdoibdg87[address] [place], [place] [address]Dr. Areli Yousif SPEC GRAVITY 1.020 Normal 1.005-<=1.[address] [facility] Comment on above: Performed By: #### E RUR ####[facility] Nfvafjxoca5165 [place] [address]Dr. Areli Yousif UR MICRO IND NOT INDICATED Normal [facility] Comment on above: Performed By: #### E RUR ####[facility] Hzecajsgpw9015 [place] [address]Dr. Areli Yousif Urobilinogen Qn (U) 0.2 {Alyssia'U}/dL Normal 0.2 - 1. 0 [facility] Comment on above: Performed By: #### E RUR ####[facility] Uollswavhz1713 [place] [address]Dr. Areli Yousif LACTATE/LACTIC ACIDon 2021 Lactate [Moles/Vol] 1.8 mmol/L Normal 0.4-1.9 [facility] Comment on above: Performed By: #### L ACT ####[facility] Iqeicesjnn32[address] [place], [place] [address]Dr. Areli Yousif LIPASEon 08-13-2022 Lipase [Catalytic activity/Vol] 75.0 U/L Normal 73.0-393.0 [facility] Comment on above: Performed By: #### L IPA, CMADM, BNP, CMP ####[facility] Neiiofpyrp0714 [place] [address]Dr. Areli Yousif POINT OF CARE GLUCOSEon Glucose [Mass/Vol] 118 mg/dL Critically high 74-106 [facility] Comment on above: Performed By: #### P OCGLUC ####[facility] Utkjntsttm7[address] [place], [place] [address]Dr. Areli Yousif PROF 14(COMP METB)on 022 Albumin [Mass/Vol] 3.3 g/dL Critically low 3.4-5.0 [facility] Comment on above: Performed By: #### L IPA, CMADM, BNP, CMP ####[facility] Agjifqfsih5128 [place] [address]Dr. Areli Yousif Albumin/Globulin [Mass ratio] 0.8 {ratio} Normal [facility] Comment on above: Performed By: #### L IPA, CMADM, BNP, CMP ####[facility] Xwngcsaofo8069 [place] [address]Dr. Areli Yousif ALP [Catalytic activity/Vol] 68 U/L Normal 46-116 [facility] Comment on above: Performed By: #### L IPA, CMADM, BNP, CMP ####[facility] Xnbbqflgob0047 [place] [address]Dr. Tabbytulio Yousif ALT [Catalytic activity/Vol] 12 U/L Critically low 16-63 [facility] Comment on above: Performed By: #### L IPA, CMADM, BNP, CMP ####[facility] Yzqdwiblnn8024 [place] [address]Dr. Tabbytulio Yousif Anion gap [Moles/Vol] 12.0 mmol/L Normal [facility] Comment on above: Performed By: #### L IPA, CMADM, BNP, CMP ####[facility] Mhysbmjmmu8[address] [place], [place] [address]Dr. Areli Yousif AST [Catalytic activity/Vol] 9 U/L Critically low 15-37 [facility] Comment on above: Performed By: #### L IPA, CMADM, BNP, CMP ####[facility] Kdfilegruv1594 [place] [address]Dr. Areli Yousif Bilirubin [Mass/Vol] 0.2 mg/dL Normal 0.2-1.0 [facility] Comment on above: Performed By: #### L IPA, CMADM, BNP, CMP ####[facility] Nvwtifxpuu3274 [place] [address]Dr. Areli Yousif Calcium [Mass/Vol] 9.3 mg/dL Normal 8.5-10.1 [facility] Comment on above: Performed By: #### L IPA, CMADM, BNP, CMP ####[facility] Xorjfwokkf1158 [place] [address]Dr. Areli Yousif Chloride [Moles/Vol] 104 mmol/L Normal 98-107 [facility] Comment on above: Performed By: #### L IPA, CMADM, BNP, CMP ####[facility] Juitkdsikc5884 [place] [address]Dr. Areli Yousif CO2 [Moles/Vol] 25.0 mmol/L Normal 21.0-32.0 [facility] Comment on above: Performed By: #### L IPA, CMADM, BNP, CMP ####[facility] Niyihgstwv5189 [place] [address]Dr. Areli Yousif Creatinine [Mass/Vol] 1.35 mg/dL Critically high 0.70-1.30 [facility] Comment on above: Performed By: #### L IPA, CMADM, BNP, CMP ####[facility] Fdykzpxbok3913 [place] [address]Dr. Areli Yousif EGFR-AF CZECH >60 Normal >=60 [facility] Comment on above: Performed By: #### L IPA, CMADM, BNP, CMP ####[facility] Rolbayrohr[address] [place], [place] [address]Dr. Areli Yousif EGFR-NON AF CZECH 53 mL/min/1.73m2 Critically low >=60 [facility] Comment on above: Performed By: #### L IPA, CMADM, BNP, CMP ####[facility] Adznddnjgw[address] [place], [place] [address]Dr. Areli Yousif Globulin (S) [Mass/Vol] 3.9 g/dL Normal [facility] Comment on above: Performed By: #### L IPA, CMADM, BNP, CMP ####[facility] Djtrtcntcq7644 [place] [address]Dr. Areli Yousif Glucose [Mass/Vol] 131 mg/dL Critically high 74-106 T [facility] Comment on above: Performed By: #### L IPA, CMADM, BNP, CMP ####[facility] Varezdcxch15[address] [place], [place] [address]Dr. Areli Yousif Potassium [Moles/Vol] 5.0 mmol/L Normal 3.5-5.1 [facility] Comment on above: Performed By: #### L IPA, CMADM, BNP, CMP ####[facility] [id number] [place], [place] [address]Dr. Areli Yousif Protein [Mass/Vol] 7.2 g/dL Normal 6.4-8.2 [facility] Comment on above: Performed By: #### L IPA, CMADM, BNP, CMP ####[facility] [id number] [place] [address]Dr. Areli Yousif Sodium [Moles/Vol] 136 mmol/L Normal 136-145 [facility] Comment on above: Performed By: #### L IPA, CMADM, BNP, CMP ####[facility] [id number] [place] [id number]. Areli Yousif Urea nitrogen [Mass/Vol] 48.0 mg/dL Critically high 7.0-18.0 [facility] Comment on above: Performed By: #### L IPA, CMADM, BNP, CMP ####[facility] [id number] [place] [address]Dr. Areli Yousif Urea nitrogen/Creatinine [Mass ratio] 35.6 mg/mg Normal [facility] Comment on above: Performed By: #### L IPA, CMADM, BNP, CMP ####[facility] [id number] [place] [address]Dr. Areli Yousif XR CHEST 1 Von 08-13-2022 XR CHEST [address] [facility] Cult,Bloodon 09-13-2019 Cult,Blood Specimen Description .BLOOD Special Requests LT HAND 17ML Culture NO GROWTH 6 DAYS Report Status FINAL 09/13/2019 Normal [facility] [place] Comment on above: Performed By: #### C DP, LACTIC, CRP, CMPX, BH #### [address]ip [address] [place] [phone] [employer]ader: Sony Aguilar MD Cult,Blood Specimen Description .BLOOD Special Requests RT HAND 15ML Culture NO GROWTH 6 DAYS Report Status FINAL 09/13/2019 [facility] Comment on above: Performed By: #### C DP, LACTIC, CRP, CMPX, BH #### Clip [address] [place] [phone] [employer] Grader: Sony Aguilar MD Cult,Tissueon 09-11-2019 Cult,Tissue Specimen Description .TISSUE LEFT .GROIN Special Requests NOT REPORTED Direct Exam NO NEUTROPHILS SEEN MIXED BACTERIAL MORPHOTYPES SEEN ON GRAM STAIN. Culture NORMAL TAWNYA MIXED ANAEROBIC TAWNYA Report Status FINAL 09/11/2019 [facility] Comment on above: Performed By: #### C DP, LACTIC, CRP, CMPX, BH #### [address] [phone] [employer]ader: Sony Aguilar MD Cult,Aerobe/Anaerobeon 09-10 Cult,Aerobe/Anaerobe Specimen Descriptio n .GROIN SWAB LEFT Special Requests NOT REPORTED Direct Exam RARE NEUTROPHILS MIXED BACTERIAL MORPHOTYPES SEEN ON GRAM STAIN. Culture NORMAL SKIN TAWNYA MIXED ANAEROBIC TAWNYA Report Status FINAL 09/10/2019 [facility] Comment on above: Performed By: #### C DP, LACTIC, CRP, CMPX, BH #### [address] [phone] [employer]ader: Sony Aguilar MD POC Glucose Fingerstickon Glucose [Mass/Vol] 238 mg/dL High 75 - 110 mg/dL [place] Interpretation and review of laboratory results Abnormal [place] Glucose [Mass/Vol] 125 mg/dL High 75 - 110 mg/dL [place] Interpretation and review of laboratory results Abnormal [place] Basic Metab w/rfx MGon 09-09 (cont.) Normal [facility] [place] Comment on above: Result Comment: Aver age GFR for 60-69 years old: 85 mL/min/1.73sq m Chronic Kidney Disease: <60 mL/min/1.73sq m Kidney failure: <15 mL/min/1.73sq m eGFR calculated using average adult body mass. Additional eGFR calculator available at: http://www.[employer]/multiple_crcl_2012.htm Performed By: #### C DP, LACTIC, CRP, CMPX, BH #### [address] [address] [employer]ader: Sony Aguilar MD Anion gap [Moles/Vol] 12 mmol/L Normal 9-17 [facility] Comment on above: Performed By: #### C DP, LACTIC, CRP, CMPX, #### [facility] [address] [place] [phone] [employer]: Sony Aguilar MD Calcium [Mass/Vol] 7.9 mg/dL Low 8.6-10.4 [facility] [place] Comment on above: Performed By: #### C DP, LACTIC, CRP, CMPX, #### [facility] [address] [place] [phone] [employer]: Sony Aguilar MD Chloride [Moles/Vol] 101 mmol/L Normal 98-107 [facility] Comment on above: Performed By: #### C DP, LACTIC, CRP, CMPX, #### [address] [address] [employer]: Sony Aguilar MD CO2 [Moles/Vol] 24 mmol/L Normal 20-31 [facility] [place] Comment on above: Performed By: #### C DP, LACTIC, CRP, CMPX, #### [facility] [address] [place] [phone] [employer]: Sony Aguilar MD Creatinine [Mass/Vol] 0.84 mg/dL Normal 0.70-1.20 [facility] Comment on above: Performed By: #### C DP, LACTIC, CRP, CMPX, #### [facility] [address] [place] [phone] [employer]: Sony Aguilar MD GFR, Amer >60 Normal >60 [facility] Comment on above: Performed By: #### C DP, LACTIC, CRP, CMPX, #### [facility] [address] [place] [phone] [employer]: Sony Aguilar MD GFR,non Amer >60 Normal >60 [facility] Comment on above: Performed By: #### C DP, LACTIC, CRP, CMPX, #### [address] [address] [employer]: Sony Aguilar MD Glucose [Mass/Vol] 181 mg/dL High 70-99 [facility] [place] Comment on above: Performed By: #### C DP, LACTIC, CRP, CMPX, #### [address] [address] [employer]: Sony Aguilar MD Potassium [Moles/Vol] 4.1 mmol/L Normal 3.7-5.3 [facility] Comment on above: Performed By: #### C DP, LACTIC, CRP, CMPX, #### [address] [address] [employer]: Sony Aguilar MD Sodium [Moles/Vol] 137 mmol/L Normal 135-144 [facility] [place] Comment on above: Performed By: #### C DP, LACTIC, CRP, CMPX, #### [address] [address] [employer]: Sony Aguilar MD Urea nitrogen [Mass/Vol] 22 mg/dL Normal 8-23 [facility] [place] Comment on above: Performed By: #### C DP, LACTIC, CRP, CMPX, #### [address] [address] [employer]: Sony Aguilar MD BUN/CRE Ratio NOT REPORTED Normal 9-20 [facility] [place] Comment on above: Performed By: #### C DP, LACTIC, CRP, CMPX, #### [facility] [address] [place] [phone] [employer]: Sony Aguilar MD Staging: NOT REPORTED Normal [facility] [place] Comment on above: Performed By: #### C DP, LACTIC, CRP, CMPX, BH #### [facility] [address] [phone] [employer]: Sony Aguilar MD Basic Metabolic Panel w/ Ref eduard to MGon 09-09-2019 Anion gap [Moles/Vol] 12 mmol/L 9 - 17 mmol/L [place] Bun/Cre Ratio NOT REPORTED [place], [place] Calcium [Mass/Vol] 7.9 mg/dL Low 8.6 - 10. 4 mg/dL [place] Chloride [Moles/Vol] 101 mmol/L 98 - 10 7 mmol/L [place] CO2 [Moles/Vol] 24 mmol/L 20 - 31 mmol/L [place] Creatinine [Mass/Vol] 0.84 mg/dL 0.7 - 1.2 mg/dL [place] GFR >60 >60 mL/min [place] GFR Non- >60 >60 mL/min [place] GFR/1.73 sq M predicted among non-blacks MDRD (S/P/Bld) [Vol rate/Area] [place] Comment on above: Average GFR for 60-6 9 years old: 85 mL/min/1.73sq m Chronic Kidney Disease: <60 mL/min/1.73sq m Kidney failure: <15 mL/min/1.73sq m eGFR calculated using average adult body mass. Additional eGFR calculator available at: http://www.[employer]/multiple_crcl_2012.htm GFR/1.73 sq M predicted among non-blacks MDRD (S/P/Bld) [Vol rate/Area] NOT REPORTED [place] Glucose [Mass/Vol] 181 mg/dL High 70 - 99 mg/dL [place] Interpretation and review of laboratory results Abnormal [place] Potassium [Moles/Vol] 4.1 mmol/L 3.7 - 5.3 mmol/L [place] Sodium [Moles/Vol] 137 mmol/L 135 - 144 mmol/L [place] Urea nitrogen [Mass/Vol] 22 mg/dL 8 - 23 mg/dL [place] CBC auto differentialon 12-0 Basophils (Bld) [#/Vol] 0.04 10*3/uL [place] Basophils/100 WBC (Bld) 1 % 0 - 2 % [place] Differential Type NOT REPORTED [place] Eosinophils (Bld) [#/Vol] 0.29 10*3/uL [place] Eosinophils/100 WBC (Bld) 3 % 1 - 4 % [place] Erythrocyte distribution width (RBC) [Ratio] 12.1 % 11.8 - 14.4 % [place] Hematocrit (Bld) [Volume fraction] 34.8 % Low 40.7 - 50.3 % [place] Hemoglobin (Bld) [Mass/Vol] 11.7 g/dL Low 13 - 17 g/dL [place] Immature granulocytes (Bld) [#/Vol] 1 % High 0 [place] Immature granulocytes (Bld) [#/Vol] 0.05 10*3/uL [place] Interpretation and review of laboratory results Abnormal [place] Lymphocytes (Bld) [#/Vol] 1.49 10*3/uL [place] Lymphocytes/100 WBC (Bld) 17 % Low 24 - 43 % [place] MCH (RBC) [Entitic mass] 29.6 pg 25.2 - 33.5 pg [place] MCHC (RBC) [Mass/Vol] 33.6 g/dL 28.4 - 34.8 g/dL [place] MCV (RBC) [Entitic vol] 88.1 fL 82.6 - 102.9 fL [place] Monocytes (Bld) [#/Vol] 0.81 10*3/uL [place] Monocytes/100 WBC (Bld) 9 % 3 - 12 % [place] Platelet mean volume (Bld) [Entitic vol] 11.7 fL 8.1 - 13.5 fL [place] Platelets (Bld) [#/Vol] NOT REPORTED [place] Platelets (Bld) [#/Vol] 248 10*3/uL [place] RBC (Bld) [#/Vol] 3.95 10*6/uL Low 4.21 - 5.7 7 m/uL [place] RBC morphology finding Nom (Bld) NOT REPORTED [place] Segmented neutrophils/100 WBC (Bld) 69 % High 36 - 65 % [place] Segs Absolute 5.94 [place] WBC (Bld) [#/Vol] 0.0 10*3/uL 0.0 per 10 0 WBC [place] WBC (Bld) [#/Vol] 8.6 10*3/uL [place] WBC Morphology NOT REPORTED [place] CBC with Diffon 09-09-2019 Abs. Basophil 0.04 k/uL Normal 0.00-0.20 [facility] [place] Comment on above: Performed By: #### C DP, LACTIC, CRP, CMPX, #### [facility] [address] [place] [address] [employer]ader: Sony Aguilar MD Abs.Imm.Granulocyte 0.05 k/uL Normal 0.00-0.30 [facility] [place] Comment on above: Performed By: #### C DP, LACTIC, CRP, CMPX, #### [facility] [address] [place] [address] [employer]ader: Sony Aguilar MD Abs.Neutrophil (Seg) 5.94 k/uL Normal 1.50-8.10 [facility] Comment on above: Performed By: #### C DP, LACTIC, CRP, CMPX, #### [facility] [address] [place] [phone] [employer]ader: Sony Aguilar MD Basophils/100 WBC (Bld) 1 % Normal 0-2 [facility] [place] Comment on above: Performed By: #### C DP, LACTIC, CRP, CMPX, #### [address] [address] [employer]: Sony Aguilar MD Eosinophils (Bld) [#/Vol] 0.29 10*3/uL Normal 0.00-0.44 [facility] [place] Comment on above: Performed By: #### C DP, LACTIC, CRP, CMPX, #### [address] [address] [employer]ader: Sony Aguilar MD Eosinophils/100 WBC (Bld) 3 % Normal 1-4 [facility] [place] Comment on above: Performed By: #### C DP, LACTIC, CRP, CMPX, #### [address] [address] [employer]ader: Sony Aguilar MD Erythrocyte distribution width (RBC) [Ratio] 12.1 % Normal 11.8-14.4 [facility] [place] Comment on above: Performed By: #### C DP, LACTIC, CRP, CMPX, #### [place] [address] [employer]ader: Sony Aguilar MD Hematocrit (Bld) [Volume fraction] 34.8 % Low 40.7-50.3 [facility] [place] Comment on above: Performed By: #### C DP, LACTIC, CRP, CMPX, #### [address] [address] [employer]: Sony Aguilar MD Hemoglobin (Bld) [Mass/Vol] 11.7 g/dL Low 13.0-17.0 [facility] [place] Comment on above: Performed By: #### C DP, LACTIC, CRP, CMPX, #### [address] [address] [employer]: Sony Aguilar MD Immature granulocytes (Bld) [#/Vol] 1 % High 0 [facility] [place] Comment on above: Performed By: #### C DP, LACTIC, CRP, CMPX, #### [address] [address] [employer]ader: Sony Aguilar MD Lymphocytes (Bld) [#/Vol] 1.49 10*3/uL Normal 1.10-3.70 [facility] [place] Comment on above: Performed By: #### C DP, LACTIC, CRP, CMPX, #### [address] [address] [employer]ader: Sony Aguilar MD Lymphocytes/100 WBC (Bld) 17 % Low 24-43 [facility] [place] Comment on above: Performed By: #### C DP, LACTIC, CRP, CMPX, #### [address] [address] [employer]ader: Sony Aguilar MD MCH (RBC) [Entitic mass] 29.6 pg Normal 25.2-33.5 [facility] [place] Comment on above: Performed By: #### C DP, LACTIC, CRP, CMPX, #### [address] [address] [employer]ader: Sony Aguilar MD MCHC (RBC) [Mass/Vol] 33.6 g/dL Normal 28.4-34.8 [facility] Comment on above: Performed By: #### C DP, LACTIC, CRP, CMPX, #### [address] [address] [employer]ader: Sony Aguilar MD MCV (RBC) [Entitic vol] 88.1 fL Normal 82.6-102.9 [facility] [place] Comment on above: Performed By: #### C DP, LACTIC, CRP, CMPX, #### [address] [address] [employer]ader: Sony Aguilar MD Monocytes (Bld) [#/Vol] 0.81 10*3/uL Normal 0.10-1.20 [facility] [place] Comment on above: Performed By: #### C DP, LACTIC, CRP, CMPX, #### [address] [address] [employer]ader: Sony Aguilar MD Monocytes/100 WBC (Bld) 9 % Normal 3-12 [facility] [place] Comment on above: Performed By: #### C DP, LACTIC, CRP, CMPX, #### [address] [address] [employer]: Sony Aguilar MD Neutrophil (Seg) 69 % High 36-65 [facility] Comment on above: Performed By: #### C DP, LACTIC, CRP, CMPX, #### [address] [address] [employer]ader: Sony Aguilar MD NRBC Automated 0.0 per 100 WBC Normal 0.0 [facility] [place] Comment on above: Performed By: #### C DP, LACTIC, CRP, CMPX, #### [address] [address] [employer]ader: Sony Aguilar MD Platelet mean volume (Bld) [Entitic vol] 11.7 fL Normal 8.1-13.5 [facility] [place] Comment on above: Performed By: #### C DP, LACTIC, CRP, CMPX, #### [address] [address] [employer]ader: Sony Aguilar MD Platelets (Bld) [#/Vol] 248 10*3/uL Normal 138-453 [facility] [place] Comment on above: Performed By: #### C DP, LACTIC, CRP, CMPX, #### [address] [address] [employer]ader: Sony Aguilar MD RBC (Bld) [#/Vol] 3.95 10*6/uL Low 4.21-5.77 [facility] [place] Comment on above: Performed By: #### C DP, LACTIC, CRP, CMPX, #### [facility] [address] [place] [phone] [employer]ader: Sony Aguilar MD WBC (Bld) [#/Vol] 8.6 10*3/uL Normal 3.5-11.3 [facility] [place] Comment on above: Performed By: #### C DP, LACTIC, CRP, CMPX, #### [address] [address] [employer]ader: Sony Aguilar MD Auto Diff Performed NOT REPORTED Normal [facility] Comment on above: Performed By: #### C DP, LACTIC, CRP, CMPX, #### [address] [address] [employer]ader: Sony Aguilar MD Platelets (Bld) [#/Vol] NOT REPORTED Normal [facility] [place] Comment on above: Performed By: #### C DP, LACTIC, CRP, CMPX, #### [address] [address] [employer]ader: Sony Aguilar MD RBC morphology finding Nom (Bld) NOT REPORTED Normal [facility] [place] Comment on above: Performed By: #### C DP, LACTIC, CRP, CMPX, #### [facility] [address] [place] [phone] [employer]ader: Sony Aguilar MD WBC Morphology NOT REPORTED Normal [facility] Comment on above: Performed By: #### C DP, LACTIC, CRP, CMPX, #### [facility] [address] [place] [phone] [employer]ader: Sony Aguilar MD POC Glucose Fingerstickon Glucose [Mass/Vol] 212 mg/dL High 75 - 110 mg/dL [place] Interpretation and review of laboratory results Abnormal [place] Glucose [Mass/Vol] 235 mg/dL High 75 - 110 mg/dL [place] Interpretation and review of laboratory results Abnormal [place] Glucose [Mass/Vol] 207 mg/dL High 75 - 110 mg/dL [place] Interpretation and review of laboratory results Abnormal [place] Glucose [Mass/Vol] 202 mg/dL High 75 - 110 mg/dL [place] Interpretation and review of laboratory results Abnormal [place] Glucose [Mass/Vol] 214 mg/dL High 75 - 110 mg/dL [place] Interpretation and review of laboratory results Abnormal [place] Basic Metab w/rfx MGon 09-08 (cont.) Normal [facility] [place] Comment on above: Result Comment: Aver age GFR for 60-69 years old: 85 mL/min/1.73sq m Chronic Kidney Disease: <60 mL/min/1.73sq m Kidney failure: <15 mL/min/1.73sq m eGFR calculated using average adult body mass. Additional eGFR calculator available at: http://www.[employer]/multiple_crcl_2011.htm Performed By: #### C DP, LACTIC, CRP, CMPX, #### [address] [address] [place] [phone] [employer]ader: Sony Aguilar MD Anion gap [Moles/Vol] 13 mmol/L Normal 9-17 [facility] Comment on above: Performed By: #### C DP, LACTIC, CRP, CMPX, #### [facility] [place], [place] [phone] [employer]ader: Sony Aguilar MD Calcium [Mass/Vol] 7.4 mg/dL Low 8.6-10.4 [facility] [place] Comment on above: Performed By: #### C DP, LACTIC, CRP, CMPX, #### [address] [place] [phone] [employer]ader: Sony Aguilar MD Chloride [Moles/Vol] 105 mmol/L Normal 98-107 [facility] Comment on above: Performed By: #### C DP, LACTIC, CRP, CMPX, #### [facility] [address] [place] [phone] [employer]ader: Sony Aguilar MD CO2 [Moles/Vol] 19 mmol/L Low 20-31 [facility] [place] Comment on above: Performed By: #### C DP, LACTIC, CRP, CMPX, #### [facility] [address] [place] [phone] [employer]ader: Sony Aguilar MD Creatinine [Mass/Vol] 0.99 mg/dL Normal 0.70-1.20 [facility] Comment on above: Performed By: #### C DP, LACTIC, CRP, CMPX, #### [address] [address] [employer]ader: Sony Aguilar MD GFR, Amer >60 Normal >60 [facility] Comment on above: Performed By: #### C DP, LACTIC, CRP, CMPX, #### [facility] [address] [place] [phone] [employer]ader: Sony Aguilar MD GFR,non Amer >60 Normal >60 [facility] Comment on above: Performed By: #### C DP, LACTIC, CRP, CMPX, #### [facility] [address] [place] [phone] [employer]ader: Sony Aguilar MD Glucose [Mass/Vol] 111 mg/dL High 70-99 [facility] [place] Comment on above: Performed By: #### C DP, LACTIC, CRP, CMPX, #### [facility] [address] [place] [phone] [employer]ader: Sony Aguilar MD Potassium [Moles/Vol] 3.9 mmol/L Normal 3.7-5.3 [facility] Comment on above: Performed By: #### C DP, LACTIC, CRP, CMPX, #### [address] [phone] [employer]ader: Sony Aguilar MD Sodium [Moles/Vol] 137 mmol/L Normal 135-144 [facility] [place] Comment on above: Performed By: #### C DP, LACTIC, CRP, CMPX, #### [address] [phone] [employer]ader: Sony Aguilar MD Urea nitrogen [Mass/Vol] 29 mg/dL High 8- [facility] [place] Comment on above: Performed By: #### C DP, LACTIC, CRP, CMPX, #### [address] [phone] [employer]ader: Sony Aguilar MD BUN/CRE Ratio NOT REPORTED Normal 06-24 [facility] [place] Comment on above: Performed By: #### C DP, LACTIC, CRP, CMPX, #### [facility] [address] [place] [phone] [employer]ader: Sony Aguilar MD Staging: NOT REPORTED Normal [facility] [place] Comment on above: Performed By: #### C DP, LACTIC, CRP, CMPX, #### [facility] [address] [place] [phone] [employer]: Sony Aguilar MD Basic Metabolic Panel w/ Ref eduard to MGon 09-08-2019 Anion gap [Moles/Vol] 13 mmol/L 9 - 17 mmol/L [place] Bun/Cre Ratio NOT REPORTED [place] Calcium [Mass/Vol] 7.4 mg/dL Low 8.6 - 10. 4 mg/dL [place] Chloride [Moles/Vol] 105 mmol/L 98 - 10 7 mmol/L [place] CO2 [Moles/Vol] 19 mmol/L Low 20 - 31 mmol/L [place] Creatinine [Mass/Vol] 0.99 mg/dL 0.7 - 1.2 mg/dL [place] GFR >60 >60 mL/min [place] GFR Non- >60 >60 mL/min [place] GFR/1.73 sq M predicted among non-blacks MDRD (S/P/Bld) [Vol rate/Area] [place] Comment on above: Average GFR for 60-6 9 years old: 85 mL/min/1.73sq m Chronic Kidney Disease: <60 mL/min/1.73sq m Kidney failure: <15 mL/min/1.73sq m eGFR calculated using average adult body mass. Additional eGFR calculator available at: http://www.[employer]/multiple_crcl_2012.htm GFR/1.73 sq M predicted among non-blacks MDRD (S/P/Bld) [Vol rate/Area] NOT REPORTED [place] Glucose [Mass/Vol] 111 mg/dL High 70 - 99 mg/dL [place] Interpretation and review of laboratory results Abnormal [place] Potassium [Moles/Vol] 3.9 mmol/L 3.7 - 5.3 mmol/L [place] Sodium [Moles/Vol] 137 mmol/L 135 - 144 mmol/L [place] Urea nitrogen [Mass/Vol] 29 mg/dL High 8 - 23 mg/dL [place] CBC auto differentialon 12-0 Basophils (Bld) [#/Vol] 10*3/uL [place] Basophils/100 WBC (Bld) 0 % 0 - 2 % [place] Differential Type NOT REPORTED [place] Eosinophils (Bld) [#/Vol] 0.15 10*3/uL [place] Eosinophils/100 WBC (Bld) 2 % 1 - 4 % [place] Erythrocyte distribution width (RBC) [Ratio] 12.0 % 11.8 - 14.4 % [place] Hematocrit (Bld) [Volume fraction] 34.8 % Low 40.7 - 50.3 % [place] Hemoglobin (Bld) [Mass/Vol] 11.0 g/dL Low 13 - 17 g/dL [place] Immature granulocytes (Bld) [#/Vol] 1 % High 0 [place] Immature granulocytes (Bld) [#/Vol] 0.05 10*3/uL [place] Interpretation and review of laboratory results Abnormal [place] Lymphocytes (Bld) [#/Vol] 1.79 10*3/uL [place] Lymphocytes/100 WBC (Bld) 19 % Low 24 - 43 % [place] MCH (RBC) [Entitic mass] 29.4 pg 25.2 - 33.5 pg [place] MCHC (RBC) [Mass/Vol] 31.6 g/dL 28.4 - 34.8 g/dL [place] MCV (RBC) [Entitic vol] 93.0 fL 82.6 - 102.9 fL [place] Monocytes (Bld) [#/Vol] 0.82 10*3/uL [place] Monocytes/100 WBC (Bld) 9 % 3 - 12 % [place] Platelet mean volume (Bld) [Entitic vol] 12.0 fL 8.1 - 13.5 fL [place] Platelets (Bld) [#/Vol] NOT REPORTED [place] Platelets (Bld) [#/Vol] 210 10*3/uL [place] RBC (Bld) [#/Vol] 3.74 10*6/uL Low 4.21 - 5.7 7 m/uL [place] RBC morphology finding Nom (Bld) NOT REPORTED [place] Segmented neutrophils/100 WBC (Bld) 71 % High 36 - 65 % [place] Segs Absolute 6.80 [place] WBC (Bld) [#/Vol] 9.6 10*3/uL [place] WBC (Bld) [#/Vol] 0.0 10*3/uL 0.0 per 10 0 WBC [place] WBC Morphology NOT REPORTED [place] CBC with Diffon 09-08-2019 Abs. Basophil <0.03 Normal 0.00-0.20 [facility] [place] Comment on above: Performed By: #### C DP, LACTIC, CRP, CMPX, #### [address] [address] [employer]: Sony Aguilar MD Abs.Imm.Granulocyte 0.05 k/uL Normal 0.00-0.30 [facility] [place] Comment on above: Performed By: #### C DP, LACTIC, CRP, CMPX, #### [place] [address] [employer]ader: Sony Aguilar MD Abs.Neutrophil (Seg) 6.80 k/uL Normal 1.50-8.10 [facility] Comment on above: Performed By: #### C DP, LACTIC, CRP, CMPX, #### [address] [address] [employer]ader: Sony Aguilar MD Basophils/100 WBC (Bld) 0 % Normal 0-2 [facility] [place] Comment on above: Performed By: #### C DP, LACTIC, CRP, CMPX, #### [address] [address] [employer]ader: Sony Aguilar MD Eosinophils (Bld) [#/Vol] 0.15 10*3/uL Normal 0.00-0.44 [facility] [place] Comment on above: Performed By: #### C DP, LACTIC, CRP, CMPX, #### [address] [address] [employer]: Sony Aguilar MD Eosinophils/100 WBC (Bld) 2 % Normal 1-4 [facility] [place] Comment on above: Performed By: #### C DP, LACTIC, CRP, CMPX, #### [address] [address] [employer]: Sony Aguilar MD Erythrocyte distribution width (RBC) [Ratio] 12.0 % Normal 11.8-14.4 [facility] [place] Comment on above: Performed By: #### C DP, LACTIC, CRP, CMPX, #### [address] [address] [employer]: Sony Aguilar MD Hematocrit (Bld) [Volume fraction] 34.8 % Low 40.7-50.3 [facility] [place] Comment on above: Performed By: #### C DP, LACTIC, CRP, CMPX, #### [address] [address] [employer]: Sony Aguilar MD Hemoglobin (Bld) [Mass/Vol] 11.0 g/dL Low 13.0-17.0 [facility] [place] Comment on above: Performed By: #### C DP, LACTIC, CRP, CMPX, #### [address] [address] [employer]: Sony Aguilar MD Immature granulocytes (Bld) [#/Vol] 1 % High 0 [facility] [place] Comment on above: Performed By: #### C DP, LACTIC, CRP, CMPX, #### [address] [address] [employer]: Sony Aguilar MD Lymphocytes (Bld) [#/Vol] 1.79 10*3/uL Normal 1.10-3.70 [facility] [place] Comment on above: Performed By: #### C DP, LACTIC, CRP, CMPX, #### [address] [address] [employer]: Sony Aguilar MD Lymphocytes/100 WBC (Bld) 19 % Low 24-43 [facility] [place] Comment on above: Performed By: #### C DP, LACTIC, CRP, CMPX, #### [address] [address] [employer]: Sony Aguilar MD MCH (RBC) [Entitic mass] 29.4 pg Normal 25.2-33.5 [facility] [place] Comment on above: Performed By: #### C DP, LACTIC, CRP, CMPX, #### [address] [address] [employer]: Sony Aguilar MD MCHC (RBC) [Mass/Vol] 31.6 g/dL Normal 28.4-34.8 [facility] Comment on above: Performed By: #### C DP, LACTIC, CRP, CMPX, #### [address] [address] [employer]: Sony Aguilar MD MCV (RBC) [Entitic vol] 93.0 fL Normal 82.6-102.9 [facility] [place] Comment on above: Performed By: #### C DP, LACTIC, CRP, CMPX, #### [address] [address] [employer]: Sony Aguilar MD Monocytes (Bld) [#/Vol] 0.82 10*3/uL Normal 0.10-1.20 [facility] [place] Comment on above: Performed By: #### C DP, LACTIC, CRP, CMPX, #### [address] [address] [employer]: Sony Aguilar MD Monocytes/100 WBC (Bld) 9 % Normal 3-12 [facility] [place] Comment on above: Performed By: #### C DP, LACTIC, CRP, CMPX, #### [address] [address] [employer]: Sony Aguilar MD Neutrophil (Seg) 71 % High 36-65 [facility] Comment on above: Performed By: #### C DP, LACTIC, CRP, CMPX, #### [address] [address] [employer]: Sony Aguilar MD NRBC Automated 0.0 per 100 WBC Normal 0.0 [facility] [place] Comment on above: Performed By: #### C DP, LACTIC, CRP, CMPX, #### [address] [address] [employer]: Sony Aguilar MD Platelet mean volume (Bld) [Entitic vol] 12.0 fL Normal 8.1-13.5 [facility] [place] Comment on above: Performed By: #### C DP, LACTIC, CRP, CMPX, #### [address] [address] [employer]: Sony Aguilar MD Platelets (Bld) [#/Vol] 210 10*3/uL Normal 138-453 [facility] [place] Comment on above: Performed By: #### C DP, LACTIC, CRP, CMPX, #### [address] [address] [employer]: Sony Aguilar MD RBC (Bld) [#/Vol] 3.74 10*6/uL Low 4.21-5.77 [facility] [place] Comment on above: Performed By: #### C DP, LACTIC, CRP, CMPX, #### [address] [address] [employer]: Sony Aguilar MD WBC (Bld) [#/Vol] 9.6 10*3/uL Normal 3.5-11.3 [facility] [place] Comment on above: Performed By: #### C DP, LACTIC, CRP, CMPX, #### [address] [address] [employer]: Sony Aguilar MD Auto Diff Performed NOT REPORTED Normal [facility] Comment on above: Performed By: #### C DP, LACTIC, CRP, CMPX, #### [address] [address] [employer]: Sony Aguilar MD Platelets (Bld) [#/Vol] NOT REPORTED Normal [facility] [place] Comment on above: Performed By: #### C DP, LACTIC, CRP, CMPX, #### [address] [address] [employer]: Sony Aguilar MD RBC morphology finding Nom (Bld) NOT REPORTED Normal [facility] [place] Comment on above: Performed By: #### C DP, LACTIC, CRP, CMPX, #### [address] [address] [employer]: Sony Aguilar MD WBC Morphology NOT REPORTED Normal [facility] Comment on above: Performed By: #### C DP, LACTIC, CRP, CMPX, #### [address] [address] [employer]: Sony Aguilar MD Cult,Urineon 09-08-2019 Cult,Urine Specimen Description .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,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 Culture NO SIGNIFICANT GROWTH Report Status FINAL 09/08/2019 Normal [facility] [place] Comment on above: Performed By: #### C DP, LACTIC, CRP, CMPX, #### [address] [address] [employer]: Sony Aguilar MD Hemoglobin A1Con 09-08-2019 HbA1c (Bld) [Mass fraction] 10.0 % High 4.0-6.0 [facility] [place] Comment on above: Performed By: #### C DP, GLYHGB #### [facility] [address] [place], [place] [id number] [employer]: Sony Aguilar MD HbA1c (Bld) [Mass fraction] 240 mg/dL Normal [facility] [place] Comment on above: Result Comment: The ADA and AACC recommend providing the estimated average glucose result to permit better patient understanding of their HBA1c result. Performed By: #### C CAROLINA ZHONGB #### [facility] [address] [place], [place] [phone] [employer]: Sony Aguilar MD Glucose [Mass/Vol] 240 mg/dL [place], [place] Comment on above: The ADA and AACC rec ommend providing the estimated average glucose result to permit better patient understanding of their HBA1c result. HbA1c (Bld) [Mass fraction] 10.0 % High 4 - 6 % [place] Interpretation and review of laboratory results Abnormal [place] POC Glucose Fingerstickon Glucose [Mass/Vol] 194 mg/dL High 75 - 110 mg/dL [place] Interpretation and review of laboratory results Abnormal [place] Glucose [Mass/Vol] 238 mg/dL High 75 - 110 mg/dL [place] Interpretation and review of laboratory results Abnormal [place] Glucose [Mass/Vol] 211 mg/dL High 75 - 110 mg/dL [place] Interpretation and review of laboratory results Abnormal [place] Glucose [Mass/Vol] 197 mg/dL High 75 - 110 mg/dL [place] Interpretation and review of laboratory results Abnormal [place] Glucose [Mass/Vol] 179 mg/dL High 75 - 110 mg/dL [place] Interpretation and review of laboratory results Abnormal [place] Glucose [Mass/Vol] 131 mg/dL High 75 - 110 mg/dL [place] Interpretation and review of laboratory results Abnormal [place] Glucose [Mass/Vol] 126 mg/dL High 75 - 110 mg/dL [place] Interpretation and review of laboratory results Abnormal [place] Glucose [Mass/Vol] 125 mg/dL High 75 - 110 mg/dL [place] Interpretation and review of laboratory results Abnormal [place] Glucose [Mass/Vol] 114 mg/dL High 75 - 110 mg/dL [place] Interpretation and review of laboratory results Abnormal [place] Glucose [Mass/Vol] 110 mg/dL 75 - 110 mg/dL [place] Glucose [Mass/Vol] 107 mg/dL 75 - 110 mg/dL [place] Glucose [Mass/Vol] 110 mg/dL 75 - 110 mg/dL [place] Glucose [Mass/Vol] 126 mg/dL High 75 - 110 mg/dL [place] Interpretation and review of laboratory results Abnormal [place] Urine Cultureon 09-08-2019 Culture NO SIGNIFICANT GROWTH [place] Special Requests NOT REPORTED [place] Specimen Description .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 Additional eGFR calculator available at: http://www.[employer]/multiple_crcl_2012.htm Performed By: #### B MPX #### [facility] [address] [place] [phone] [employer]: Sony Aguilar MD Anion gap [Moles/Vol] 12 mmol/L Normal 9-17 [facility] Comment on above: Performed By: #### B MPX #### [facility] [place], [place] [phone] [employer]: Sony Aguilar MD Calcium [Mass/Vol] 7.5 mg/dL Low 8.6-10.4 [facility] [place] Comment on above: Performed By: #### B MPX #### [address] [address] [employer]ader: Sony Aguilar MD Chloride [Moles/Vol] 99 mmol/L Normal 98-107 [facility] Comment on above: Performed By: #### B MPX #### [address] [address] [employer]: Sony Aguilar MD CO2 [Moles/Vol] 21 mmol/L Normal 20-31 [facility] [place] Comment on above: Performed By: #### B MPX #### [address] [address] [employer]ader: Sony Aguilar MD Creatinine [Mass/Vol] 1.12 mg/dL Normal 0.70-1.20 [facility] Comment on above: Performed By: #### B MPX #### [address] [address] [employer]: Sony Aguilar MD GFR, Amer >60 Normal >60 [facility] Comment on above: Performed By: #### B MPX #### [address] [address] [employer]: Sony Aguilar MD GFR,non Amer >60 Normal >60 [facility] Comment on above: Performed By: #### B MPX #### [address] [address] [employer]ader: Sony Aguilar MD Glucose [Mass/Vol] 225 mg/dL High 70-99 [facility] [place] Comment on above: Performed By: #### B MPX #### [address] [address] [employer]: Sony Aguilar MD Potassium [Moles/Vol] 4.4 mmol/L Normal 3.7-5.3 [facility] Comment on above: Performed By: #### B MPX #### [facility] [address] [place] [address] [employer]: Sony Aguilar MD Sodium [Moles/Vol] 132 mmol/L Low 135-144 [facility] [place] Comment on above: Performed By: #### B MPX #### [facility] [address] [place] [address] [employer]: Sony Aguilar MD Urea nitrogen [Mass/Vol] 33 mg/dL High 8-23 [facility] [place] Comment on above: Performed By: #### B MPX #### [facility] [address] [place] [address] [employer]ader: Sony Aguilar MD BUN/CRE Ratio NOT REPORTED Normal - [facility] [place] Comment on above: Performed By: #### B MPX #### [facility] [address] [place] [phone] [employer]ader: Sony Aguilar MD Staging: NOT REPORTED Normal [facility] [place] Comment on above: Performed By: #### B MPX #### [facility] [address] [place] [phone] [employer]: Sony Aguilar MD Basic Metabolic Panel w/ Ref eduard to MGon 09-07-2019 Anion gap [Moles/Vol] 12 mmol/L 9 - 17 mmol/L [place] Bun/Cre Ratio NOT REPORTED [place] Calcium [Mass/Vol] 7.5 mg/dL Low 8.6 - 10. 4 mg/dL [place] Chloride [Moles/Vol] 99 mmol/L 98 - 10 7 mmol/L [place] CO2 [Moles/Vol] 21 mmol/L 20 - 31 mmol/L [place] Creatinine [Mass/Vol] 1.12 mg/dL 0.7 - 1.2 mg/dL [place] GFR >60 >60 mL/min [place] GFR Non- >60 >60 mL/min [place] GFR/1.73 sq M predicted among non-blacks MDRD (S/P/Bld) [Vol rate/Area] NOT REPORTED [place] GFR/1.73 sq M predicted among non-blacks MDRD (S/P/Bld) [Vol rate/Area] [place] Comment on above: Average GFR for 60-6 9 years old: 85 mL/min/1.73sq m Chronic Kidney Disease: <60 mL/min/1.73sq m Kidney failure: <15 mL/min/1.73sq m eGFR calculated using average adult body mass. Additional eGFR calculator available at: http://www.[employer]/multiple_crcl_2011.htm Glucose [Mass/Vol] 225 mg/dL High 70 - 99 mg/dL [place] Interpretation and review of laboratory results Abnormal [place] Potassium [Moles/Vol] 4.4 mmol/L 3.7 - 5.3 mmol/L [place] Sodium [Moles/Vol] 132 mmol/L Low 135 - 144 mmol/L [place] Urea nitrogen [Mass/Vol] 33 mg/dL High 8 - 23 mg/dL [place] Beta Hydroxybutyrateon 09-07 Beta Hydroxybutyrate 0.67 mmol/L High 0.02-0.27 [facility] Comment on above: Performed By: #### C DP, LACTIC, CRP, CMPX, #### [address] [place] [address] [employer]: Sony Aguilar MD C-Reactive Proteinon 019 CRP [Mass/Vol] 237.9 mg/L High 0.0-5.0 [facility] [place] Comment on above: Performed By: #### C DP, LACTIC, CRP, CMPX, BH #### [facility] [address] [place] [address] [employer]: Sony Aguilar MD CBC auto differentialon 12-0 Basophils (Bld) [#/Vol] 10*3/uL [place] Basophils/100 WBC (Bld) 0 % 0 - 2 % [place] Differential Type NOT REPORTED [place] Eosinophils (Bld) [#/Vol] 0.05 10*3/uL [place] Eosinophils/100 WBC (Bld) 0 % Low 1 - 4 % [place] Erythrocyte distribution width (RBC) [Ratio] 12.0 % 11.8 - 14.4 % [place] Hematocrit (Bld) [Volume fraction] 34.4 % Low 40.7 - 50.3 % [place] Hemoglobin (Bld) [Mass/Vol] 11.6 g/dL Low 13 - 17 g/dL [place] Immature granulocytes (Bld) [#/Vol] 0 % 0 [place] Immature granulocytes (Bld) [#/Vol] 0.05 10*3/uL [place] Interpretation and review of laboratory results Abnormal [place] Lymphocytes (Bld) [#/Vol] 1.73 10*3/uL [place] Lymphocytes/100 WBC (Bld) 12 % Low 24 - 43 % [place] MCH (RBC) [Entitic mass] 29.3 pg 25.2 - 33.5 pg [place] MCHC (RBC) [Mass/Vol] 33.7 g/dL 28.4 - 34.8 g/dL [place] MCV (RBC) [Entitic vol] 86.9 fL 82.6 - 102.9 fL [place] Monocytes (Bld) [#/Vol] 1.34 10*3/uL High [place] Monocytes/100 WBC (Bld) 9 % 3 - 12 % [place] Platelet mean volume (Bld) [Entitic vol] 12.8 fL 8.1 - 13.5 fL [place] Platelets (Bld) [#/Vol] NOT REPORTED [place] Platelets (Bld) [#/Vol] 131 10*3/uL Low [place] RBC (Bld) [#/Vol] 3.96 10*6/uL Low 4.21 - 5.7 7 m/uL [place] RBC morphology finding Nom (Bld) NOT REPORTED [place] Segmented neutrophils/100 WBC (Bld) 79 % High 36 - 65 % [place] Segs Absolute 11.42 High [place] WBC (Bld) [#/Vol] 0.0 10*3/uL 0.0 per 10 0 WBC [place] WBC (Bld) [#/Vol] 14.6 10*3/uL High [place] WBC Morphology NOT REPORTED [place] CBC with Diffon 09-07-2019 Abs. Basophil <0.03 Normal 0.00-0.20 [facility] [place] Comment on above: Performed By: #### C DP, GLYHGB #### [facility] [address] [place] [address] [employer]: Sony Aguilar MD Abs.Imm.Granulocyte 0.05 k/uL Normal 0.00-0.30 [facility] [place] Comment on above: Performed By: #### C DP, GLYHGB #### [facility] [address] [place] [address] [employer]: Sony Aguilar MD Abs.Neutrophil (Seg) 11.42 k/uL High 1.50-8.10 [facility] Comment on above: Performed By: #### C DP, GLYHGB #### [facility] [address] [place] [address] [employer]ader: Sony Aguilar MD Basophils/100 WBC (Bld) 0 % Normal 0-2 [facility] [place] Comment on above: Performed By: #### C DP, GLYHGB #### [facility] [address] [place] [address] [employer]: Sony Aguilar MD Eosinophils (Bld) [#/Vol] 0.05 10*3/uL Normal 0.00-0.44 [facility] [place] Comment on above: Performed By: #### C DP, GLYHGB #### [address] [address] [employer]: Sony Aguilar MD Eosinophils/100 WBC (Bld) 0 % Low 1-4 [facility] [place] Comment on above: Performed By: #### C DP, GLYHGB #### [address] [address] [employer]: Sony Aguilar MD Erythrocyte distribution width (RBC) [Ratio] 12.0 % Normal 11.8-14.4 [facility] [place] Comment on above: Performed By: #### C DP, GLYHGB #### [address] [address] [employer]: Sony Aguilar MD Hematocrit (Bld) [Volume fraction] 34.4 % Low 40.7-50.3 [facility] [place] Comment on above: Performed By: #### C DP, GLYHGB #### [address] [address] [employer]: Sony Aguilar MD Hemoglobin (Bld) [Mass/Vol] 11.6 g/dL Low 13.0-17.0 [facility] [place] Comment on above: Performed By: #### C DP, GLYHGB #### [address] [address] [employer]: Sony Aguilar MD Immature granulocytes (Bld) [#/Vol] 0 % Normal 0 [facility] [place] Comment on above: Performed By: #### C DP, GLYHGB #### [facility] [address] [place] [phone] [employer]: Sony Aguilar MD Lymphocytes (Bld) [#/Vol] 1.73 10*3/uL Normal 1.10-3.70 [facility] [place] Comment on above: Performed By: #### C DP, GLYHGB #### [address] [address] [employer]: Soyn Aguilar MD Lymphocytes/100 WBC (Bld) 12 % Low 24-43 [facility] [place] Comment on above: Performed By: #### C DP, GLYHGB #### [address] [address] [employer]: Sony Aguilar MD MCH (RBC) [Entitic mass] 29.3 pg Normal 25.2-33.5 [facility] [place] Comment on above: Performed By: #### C DP, GLYHGB #### [address] [address] [employer]: Sony Aguilar MD MCHC (RBC) [Mass/Vol] 33.7 g/dL Normal 28.4-34.8 [facility] Comment on above: Performed By: #### C DP, GLYHGB #### [address] [address] [employer]: Sony Aguilar MD MCV (RBC) [Entitic vol] 86.9 fL Normal 82.6-102.9 [facility] [place] Comment on above: Performed By: #### C DP, GLYHGB #### [address] [address] [employer]: Sony Aguilar MD Monocytes (Bld) [#/Vol] 1.34 10*3/uL High 0.10-1.20 [facility] [place] Comment on above: Performed By: #### C DP, GLYHGB #### [address] [address] [employer]: Sony Aguilar MD Monocytes/100 WBC (Bld) 9 % Normal 3-12 [facility] [place] Comment on above: Performed By: #### C DP, GLYHGB #### [address] [address] [employer]: Sony Aguilar MD Neutrophil (Seg) 79 % High 36-65 [facility] Comment on above: Performed By: #### C DP, GLYHGB #### [address] [address] [employer]: Sony Aguilar MD NRBC Automated 0.0 per 100 WBC Normal 0.0 [facility] [place] Comment on above: Performed By: #### C DP, GLYHGB #### [address] [address] [employer]: Sony Aguilar MD Platelet mean volume (Bld) [Entitic vol] 12.8 fL Normal 8.1-13.5 [facility] [place] Comment on above: Performed By: #### C DP, GLYHGB #### [address] [address] [employer]ader: Sony Aguilar MD Platelets (Bld) [#/Vol] 131 10*3/uL Low 138-453 [facility] [place] Comment on above: Performed By: #### C DP, GLYHGB #### [address] [address] [employer]: Sony Aguilar MD RBC (Bld) [#/Vol] 3.96 10*6/uL Low 4.21-5.77 [facility] [place] Comment on above: Performed By: #### C DP, GLYHGB #### [address] [address] [employer]: Sony Aguilar MD WBC (Bld) [#/Vol] 14.6 10*3/uL High 3.5-11.3 [facility] [place] Comment on above: Performed By: #### C DP, GLYHGB #### [facility] [address] [place] [phone] [employer]: Sony Aguilar MD Auto Diff Performed NOT REPORTED Normal [facility] Comment on above: Performed By: #### C DP, GLYHGB #### [facility] [address] [place] [phone] [employer]: Sony Aguilar MD Platelets (Bld) [#/Vol] NOT REPORTED Normal [facility] [place] Comment on above: Performed By: #### C DP, GLYHGB #### [address] [address] [employer]: Sony Aguilar MD RBC morphology finding Nom (Bld) NOT REPORTED Normal [facility] [place] Comment on above: Performed By: #### C DP, GLYHGB #### [address] [address] [employer]: Sony Aguilar MD WBC Morphology NOT REPORTED Normal [facility] Comment on above: Performed By: #### C DP, GLYHGB #### [address] [address] [employer]: Sony Aguilar MD Abs. Basophil 0.04 k/uL Normal 0.00-0.20 [facility] [place] Comment on above: Performed By: #### C DP, LACTIC, CRP, CMPX, #### [facility] [address] [place] [address] [employer]: Sony Aguilar MD Abs.Imm.Granulocyte 0.06 k/uL Normal 0.00-0.30 [facility] [place] Comment on above: Performed By: #### C DP, LACTIC, CRP, CMPX, BH #### [facility] [address] [place] [phone] [employer]: Sony Aguilar MD Abs.Neutrophil (Seg) 11.62 k/uL High 1.50-8.10 [facility] Comment on above: Performed By: #### C DP, LACTIC, CRP, CMPX, #### [address] [address] [employer]: Sony Aguilar MD Basophils/100 WBC (Bld) 0 % Normal 0-2 [facility] [place] Comment on above: Performed By: #### C DP, LACTIC, CRP, CMPX, #### [address] [address] [employer]: Sony Aguilar MD Eosinophils (Bld) [#/Vol] 0.03 10*3/uL Normal 0.00-0.44 [facility] [place] Comment on above: Performed By: #### C DP, LACTIC, CRP, CMPX, #### [address] [address] [employer]: Sony Aguilar MD Eosinophils/100 WBC (Bld) 0 % Low 1-4 [facility] [place] Comment on above: Performed By: #### C DP, LACTIC, CRP, CMPX, #### [address] [address] [employer]: Sony Aguilar MD Erythrocyte distribution width (RBC) [Ratio] 11.9 % Normal 11.8-14.4 [facility] [place] Comment on above: Performed By: #### C DP, LACTIC, CRP, CMPX, #### [address] [address] [employer]: Sony Aguilar MD Hematocrit (Bld) [Volume fraction] 36.0 % Low 40.7-50.3 [facility] [place] Comment on above: Performed By: #### C DP, LACTIC, CRP, CMPX, #### [address] [address] [employer]: Sony Aguilar MD Hemoglobin (Bld) [Mass/Vol] 11.8 g/dL Low 13.0-17.0 [facility] [place] Comment on above: Performed By: #### C DP, LACTIC, CRP, CMPX, #### [address] [address] [employer]: Sony Aguilar MD Immature granulocytes (Bld) [#/Vol] 0 % Normal 0 [facility] [place] Comment on above: Performed By: #### C DP, LACTIC, CRP, CMPX, #### [address] [address] [employer]ader: Sony Aguilar MD Lymphocytes (Bld) [#/Vol] 1.19 10*3/uL Normal 1.10-3.70 [facility] [place] Comment on above: Performed By: #### C DP, LACTIC, CRP, CMPX, #### [address] [address] [employer]: Sony Aguilar MD Lymphocytes/100 WBC (Bld) 8 % Low 24-43 [facility] [place] Comment on above: Performed By: #### C DP, LACTIC, CRP, CMPX, #### [address] [address] [employer]: Sony Aguilar MD MCH (RBC) [Entitic mass] 29.8 pg Normal 25.2-33.5 [facility] [place] Comment on above: Performed By: #### C DP, LACTIC, CRP, CMPX, #### [address] [address] [employer]: Sony Aguilar MD MCHC (RBC) [Mass/Vol] 32.8 g/dL Normal 28.4-34.8 [facility] Comment on above: Performed By: #### C DP, LACTIC, CRP, CMPX, #### [address] [address] [employer]: Sony Aguilar MD MCV (RBC) [Entitic vol] 90.9 fL Normal 82.6-102.9 [facility] [place] Comment on above: Performed By: #### C DP, LACTIC, CRP, CMPX, #### [address] [address] [employer]: Sony Aguilar MD Monocytes (Bld) [#/Vol] 1.39 10*3/uL High 0.10-1.20 [facility] [place] Comment on above: Performed By: #### C DP, LACTIC, CRP, CMPX, #### [address] [address] [employer]: Sony Aguilar MD Monocytes/100 WBC (Bld) 10 % Normal 3-12 [facility] [place] Comment on above: Performed By: #### C DP, LACTIC, CRP, CMPX, #### [address] [address] [employer]: Sony Aguilar MD Neutrophil (Seg) 82 % High 36-65 [facility] Comment on above: Performed By: #### C DP, LACTIC, CRP, CMPX, #### [address] [address] [employer]: Sony Aguilar MD NRBC Automated 0.0 per 100 WBC Normal 0.0 [facility] [place] Comment on above: Performed By: #### C DP, LACTIC, CRP, CMPX, #### [address] [address] [employer]: Sony Aguilar MD Platelet mean volume (Bld) [Entitic vol] 12.0 fL Normal 8.1-13.5 [facility] [place] Comment on above: Performed By: #### C DP, LACTIC, CRP, CMPX, #### [facility] [address] [place] [phone] [employer]: Sony Aguilar MD Platelets (Bld) [#/Vol] 160 10*3/uL Normal 138-453 [facility] [place] Comment on above: Performed By: #### C DP, LACTIC, CRP, CMPX, #### [address] [address] [employer]: Sony Aguilar MD RBC (Bld) [#/Vol] 3.96 10*6/uL Low 4.21-5.77 [facility] [place] Comment on above: Performed By: #### C DP, LACTIC, CRP, CMPX, #### [address] [address] [employer]: Sony Aguilar MD WBC (Bld) [#/Vol] 14.3 10*3/uL High 3.5-11.3 [facility] [place] Comment on above: Performed By: #### C DP, LACTIC, CRP, CMPX, #### [address] [address] [employer]: Sony Aguilar MD Auto Diff Performed NOT REPORTED Normal [facility] Comment on above: Performed By: #### C DP, LACTIC, CRP, CMPX, #### [address] [address] [employer]: Sony Aguilar MD Platelets (Bld) [#/Vol] NOT REPORTED Normal [facility] [place] Comment on above: Performed By: #### C DP, LACTIC, CRP, CMPX, #### [facility] [address] [place] [phone] [employer]: Sony Aguilar MD RBC morphology finding Nom (Bld) NOT REPORTED Normal [facility] [place] Comment on above: Performed By: #### C DP, LACTIC, CRP, CMPX, #### [address] [place] [address] [employer]: Sony Aguilar MD WBC Morphology NOT REPORTED Normal [facility] Comment on above: Performed By: #### C DP, LACTIC, CRP, CMPX, #### [address] [address] [employer]: Sony Aguilar MD Comp Metabolic Pr/rfx MGon 1 11-08-2018 AST [Catalytic activity/Vol] 13 U/L Normal <40 [facility] [place] Comment on above: Performed By: #### C DP, LACTIC, CRP, CMPX, #### [address] [address] [employer]: Sony Aguilar MD (cont.) Normal [facility] [place] Comment on above: Result Comment: Aver age GFR for 60-69 years old: 85 mL/min/1.73sq m Chronic Kidney Disease: <60 mL/min/1.73sq m Kidney failure: <15 mL/min/1.73sq m eGFR calculated using average adult body mass. Additional eGFR calculator available at: http://www.[employer]/multiple_crcl_2011.htm Performed By: #### C DP, LACTIC, CRP, CMPX, #### [address] [address] [employer]: Sony Aguilar MD Albumin [Mass/Vol] 2.6 g/dL Low 3.5-5.2 [facility] [place] Comment on above: Performed By: #### C DP, LACTIC, CRP, CMPX, #### [address] [address] [employer]: Sony Aguilar MD Albumin/Globulin [Mass ratio] 0.9 {ratio} Low 1.0-2.5 [facility] [place] Comment on above: Performed By: #### C DP, LACTIC, CRP, CMPX, #### [address] [address] [employer]: Sony Aguilar MD Alkaline Phos 72 U/L Normal 40-129 [facility] [place] Comment on above: Performed By: #### C DP, LACTIC, CRP, CMPX, #### [address] [address] [employer]: Sony Aguilar MD ALT [Catalytic activity/Vol] 14 U/L Normal 5-41 [facility] [place] Comment on above: Performed By: #### C DP, LACTIC, CRP, CMPX, #### [address] [address] [employer]: Sony Aguilar MD Anion gap [Moles/Vol] 11 mmol/L Normal 9-17 [facility] Comment on above: Performed By: #### C DP, LACTIC, CRP, CMPX, #### [address] [address] [employer]: Sony Aguilar MD Bilirubin Ql (U) 0.64 mg/dL Normal 0.3-1.2 [facility] Comment on above: Performed By: #### C DP, LACTIC, CRP, CMPX, #### [address] [address] [employer]: Sony Aguilar MD Calcium [Mass/Vol] 7.6 mg/dL Low 8.6-10.4 [facility] [place] Comment on above: Performed By: #### C DP, LACTIC, CRP, CMPX, #### [address] [address] [employer]: Sony Aguilar MD Chloride [Moles/Vol] 99 mmol/L Normal 98-107 [facility] Comment on above: Performed By: #### C DP, LACTIC, CRP, CMPX, #### [address] [address] [employer]: Sony Aguilar MD CO2 [Moles/Vol] 22 mmol/L Normal 20-31 [facility] [place] Comment on above: Performed By: #### C DP, LACTIC, CRP, CMPX, #### [address] [address] [employer]: Sony Aguilar MD Creatinine [Mass/Vol] 1.22 mg/dL High 0.70-1.20 [facility] Comment on above: Performed By: #### C DP, LACTIC, CRP, CMPX, #### [address] [address] [employer]: Sony Aguilar MD GFR, Amer >60 Normal >60 [facility] Comment on above: Performed By: #### C DP, LACTIC, CRP, CMPX, #### [address] [address] [employer]: Sony Aguilar MD GFR,non Amer 60 mL/min Low >60 [facility] Comment on above: Performed By: #### C DP, LACTIC, CRP, CMPX, #### [facility] [address] [place] [phone] [employer]: Sony Aguilar MD Glucose [Mass/Vol] 293 mg/dL High 70-99 [facility] [place] Comment on above: Performed By: #### C DP, LACTIC, CRP, CMPX, #### [facility] [address] [place] [phone] [employer]: Sony Aguilar MD Potassium [Moles/Vol] 4.3 mmol/L Normal 3.7-5.3 [facility] Comment on above: Performed By: #### C DP, LACTIC, CRP, CMPX, #### [address] [address] [employer]: Sony Aguilar MD Protein [Mass/Vol] 5.6 g/dL Low 6.4-8.3 [facility] [place] Comment on above: Performed By: #### C DP, LACTIC, CRP, CMPX, #### [facility] [address] [place] [phone] [employer]: Sony Aguilar MD Sodium [Moles/Vol] 132 mmol/L Low 135-144 [facility] [place] Comment on above: Performed By: #### C DP, LACTIC, CRP, CMPX, #### [facility] [address] [place] [phone] [employer]: Sony Aguilar MD Urea nitrogen [Mass/Vol] 34 mg/dL High 8-23 [facility] [place] Comment on above: Performed By: #### C DP, LACTIC, CRP, CMPX, #### [facility] [address] [place] [phone] [employer]: Sony Aguilar MD BUN/CRE Ratio NOT REPORTED Normal 9-20 [facility] [place] Comment on above: Performed By: #### C DP, LACTIC, CRP, CMPX, #### [facility] [address] [place] [phone] [employer]: Sony Aguilar MD Staging: NOT REPORTED Normal [facility] [place] Comment on above: Performed By: #### C DP, LACTIC, CRP, CMPX, #### [facility] [address] [place] [phone] [employer]: Sony Aguilar MD Lactic Acidon 09-07-2019 Lactate [Moles/Vol] 1.4 mmol/L Normal 0.7-2.1 [facility] [place] Comment on above: Performed By: #### C DP, LACTIC, CRP, CMPX, #### [facility] [address] [place] [phone] [employer]: Sony Aguilar MD Lactate [Moles/Vol] NOT REPORTED Normal [facility] Comment on above: Performed By: #### C DP, LACTIC, CRP, CMPX, #### [facility] [address] [place] [phone] [employer]: Sony Aguilar MD MRSA DNA Probe, Nasalon MRSA, DNA, Nasal NEGATIVE: MRSA DNA n ot detected by nucleic acid amplification. NEGATIVE: MRSA DNA not detected by nucleic acid amplificati [place], [place] Comment on above: Results should be used as an adjunct to nosocomial control efforts to identify patients needing enhanced precautions. The test is not intended to identify patients with staphylococcal infections. Results should not be used to guide or monitor treatment for MRSA infections. Specimen Description .NASAL SWAB [place], [place] MRSA, DNA, Nasalon 9 MRSA, DNA, Nasal NEGATIVE: MRSA DNA n ot detected by nucleic acid amplification. Normal [facility] Comment on above: Result Comment: Results should be used as an adjunct to nosocomial control efforts to identify patients needing enhanced precautions. The test is not intended to identify patients with staphylococcal infections. Results should not be used to guide or monitor treatment for MRSA infections. Performed By: #### C DP, LACTIC, CRP, CMPX, #### [facility] [address] [place] [phone] [employer]: Sony Aguilar MD POC Glucose Fingerstickon Glucose [Mass/Vol] 153 mg/dL High 75 - 110 mg/dL [place] Interpretation and review of laboratory results Abnormal [place] Glucose [Mass/Vol] 163 mg/dL High 75 - 110 mg/dL [place] Interpretation and review of laboratory results Abnormal [place] Glucose [Mass/Vol] 174 mg/dL High 75 - 110 mg/dL [place] Interpretation and review of laboratory results Abnormal [place] Glucose [Mass/Vol] 189 mg/dL High 75 - 110 mg/dL [place] Interpretation and review of laboratory results Abnormal [place] Glucose [Mass/Vol] 116 mg/dL High 75 - 110 mg/dL [place] Interpretation and review of laboratory results Abnormal [place] Glucose [Mass/Vol] 139 mg/dL High 75 - 110 mg/dL [place] Interpretation and review of laboratory results Abnormal [place] Glucose [Mass/Vol] 135 mg/dL High 75 - 110 mg/dL [place] Interpretation and review of laboratory results Abnormal [place] Glucose [Mass/Vol] 182 mg/dL High 75 - 110 mg/dL [place] Interpretation and review of laboratory results Abnormal [place] Glucose [Mass/Vol] 157 mg/dL High 75 - 110 mg/dL [place] Interpretation and review of laboratory results Abnormal [place] Glucose [Mass/Vol] 150 mg/dL High 75 - 110 mg/dL [place] Interpretation and review of laboratory results Abnormal [place] Glucose [Mass/Vol] 139 mg/dL High 75 - 110 mg/dL [place] Interpretation and review of laboratory results Abnormal [place] Glucose [Mass/Vol] 167 mg/dL High 75 - 110 mg/dL [place] Interpretation and review of laboratory results Abnormal [place] Glucose [Mass/Vol] 190 mg/dL High 75 - 110 mg/dL [place] Interpretation and review of laboratory results Abnormal [place] Glucose [Mass/Vol] 181 mg/dL High 75 - 110 mg/dL [place] Interpretation and review of laboratory results Abnormal [place] Glucose [Mass/Vol] 236 mg/dL High 75 - 110 mg/dL [place] Interpretation and review of laboratory results Abnormal [place] Type + Screenon 09-07-2019 Type + Screen Sample Expiration 09/09/2019,2359 Arm Band Number BE [id number] ABO/Rh(D) O NEGATIVE Antibody Screen NEGATIVE Normal [facility] [place] Comment on above: Performed By: #### T YS #### [facility] [place] [address] [employer]ader: Sony Aguilar MD BLOOD BANK SPECIMENon 2018 Blood Bank Specimen NOT REPORTED [place], [place] Beta-Hydroxybutyrateon 09-06 Beta-Hydroxybutyrate 0.67 mmol/L High 0.02 - 0.27 mmol/L [place] Interpretation and review of laboratory results Abnormal [place] Blood Bank Specimenon 2018 Blood Bank Specimen NOT REPORTED Normal [facility] C-Reactive Proteinon 019 CRP [Mass/Vol] 237.9 mg/L High 0 - 5 mg/L [place], [place] Interpretation and review of laboratory results Abnormal [place] CBC auto differentialon Basophils (Bld) [#/Vol] 0.04 10*3/uL [place] Basophils/100 WBC (Bld) 0 % 0 - 2 % [place] Differential Type NOT REPORTED [place] Eosinophils (Bld) [#/Vol] 0.03 10*3/uL [place] Eosinophils/100 WBC (Bld) 0 % Low 1 - 4 % [place] Erythrocyte distribution width (RBC) [Ratio] 11.9 % 11.8 - 14.4 % [place] Hematocrit (Bld) [Volume fraction] 36.0 % Low 40.7 - 50.3 % [place] Hemoglobin (Bld) [Mass/Vol] 11.8 g/dL Low 13 - 17 g/dL [place] Immature granulocytes (Bld) [#/Vol] 0.06 10*3/uL [place] Immature granulocytes (Bld) [#/Vol] 0 % 0 [place] Interpretation and review of laboratory results Abnormal [place] Lymphocytes (Bld) [#/Vol] 1.19 10*3/uL [place] Lymphocytes/100 WBC (Bld) 8 % Low 24 - 43 % [place] MCH (RBC) [Entitic mass] 29.8 pg 25.2 - 33.5 pg [place] MCHC (RBC) [Mass/Vol] 32.8 g/dL 28.4 - 34.8 g/dL [place] MCV (RBC) [Entitic vol] 90.9 fL 82.6 - 102.9 fL [place] Monocytes (Bld) [#/Vol] 1.39 10*3/uL [place] Monocytes/100 WBC (Bld) 10 % 3 - 12 % [place] Platelet mean volume (Bld) [Entitic vol] 12.0 fL 8.1 - 13.5 fL [place] Platelets (Bld) [#/Vol] 160 10*3/uL [place] Platelets (Bld) [#/Vol] NOT REPORTED [place] RBC (Bld) [#/Vol] 3.96 10*6/uL Low 4.21 - 5.7 7 m/uL [place] RBC morphology finding Nom (Bld) NOT REPORTED [place] Segmented neutrophils/100 WBC (Bld) 82 % High 36 - 65 % [place] Segs Absolute 11.62 High [place] WBC (Bld) [#/Vol] 0.0 10*3/uL 0.0 per 10 0 WBC [place] WBC (Bld) [#/Vol] 14.3 10*3/uL [place] WBC Morphology NOT REPORTED [place] Comprehensive Metabolic Pane l w/ Reflex to MGon 09-06-2019 Albumin [Mass/Vol] 2.6 g/dL Low 3.5 - 5.2 g/dL [place] Albumin/Globulin [Mass ratio] 0.9 {ratio} Low [place] ALP [Catalytic activity/Vol] 72 U/L 40 - 129 U/L [place] ALT [Catalytic activity/Vol] 14 U/L 5 - 41 U/L [place] Anion gap [Moles/Vol] 11 mmol/L 9 - 17 mmol/L [place] AST [Catalytic activity/Vol] 13 U/L <40 [place] Bilirubin Ql (U) 0.64 mg/dL 0.3 - 1.2 mg/dL [place] Bun/Cre Ratio NOT REPORTED [place], [place] Calcium [Mass/Vol] 7.6 mg/dL Low 8.6 - 10. 4 mg/dL [place] Chloride [Moles/Vol] 99 mmol/L 98 - 10 7 mmol/L [place] CO2 [Moles/Vol] 22 mmol/L 20 - 31 mmol/L [place] Creatinine [Mass/Vol] 1.22 mg/dL High 0.7 - 1.2 mg/dL [place] GFR >60 >60 mL/min [place] GFR Non- 60 mL/min Low >60 [place] GFR/1.73 sq M predicted among non-blacks MDRD (S/P/Bld) [Vol rate/Area] NOT REPORTED [place] GFR/1.73 sq M predicted among non-blacks MDRD (S/P/Bld) [Vol rate/Area] [place] Comment on above: Average GFR for 60-6 9 years old: 85 mL/min/1.73sq m Chronic Kidney Disease: <60 mL/min/1.73sq m Kidney failure: <15 mL/min/1.73sq m eGFR calculated using average adult body mass. Additional eGFR calculator available at: http://www.[employer]/multiple_crcl_2011.htm Glucose [Mass/Vol] 293 mg/dL High 70 - 99 mg/dL [place] Interpretation and review of laboratory results Abnormal [place] Potassium [Moles/Vol] 4.3 mmol/L 3.7 - 5.3 mmol/L [place] Protein [Mass/Vol] 5.6 g/dL Low 6.4 - 8.3 g/dL [place] Sodium [Moles/Vol] 132 mmol/L Low 135 - 144 mmol/L [place] Urea nitrogen [Mass/Vol] 34 mg/dL High 8 - 23 mg/dL [place] Lactic acid, plasmaon 2018 Lactate [Moles/Vol] NOT REPORTED mmol/L [place] Lactic Acid, Whole Blood 1.4 mmol/L 0.7 - 2.1 mmol/L [place] MRSA, DNA, Nasalon 9 Specimen Description .NASAL SWAB Normal [facility] Comment on above: Performed By: #### C DP, LACTIC, CRP, CMPX, #### [facility] [address] [place] [address] [employer]ader: Sony Aguilar MD POC Glucose Fingerstickon Glucose [Mass/Vol] 286 mg/dL High 75 - 110 mg/dL [place] Interpretation and review of laboratory results Abnormal [place] Glucose [Mass/Vol] 281 mg/dL High 75 - 110 mg/dL [place] Interpretation and review of laboratory results Abnormal [place] Glucose [Mass/Vol] 294 mg/dL High 75 - 110 mg/dL [place] Interpretation and review of laboratory results Abnormal [place] Glucose [Mass/Vol] 288 mg/dL High 75 - 110 mg/dL [place] Interpretation and review of laboratory results Abnormal [place] TYPE AND SCREENon 09-06-2019 ABO/Rh Negative [place], [place] Arm Band Number [id number] [place], [place] Expiration Date 09/09/2019,2359 [place] Vital Signs Date Time Vital Sign Value Performing Clinician Faci litravinder 01-20-2024 10: Body height 185.4 cm Maine Barraza APRN-SOCIAL SERVICES COORDINATOR Work Phone: [facility] 01-20-2024 10: Body mass index (BMI) [Ratio] 31 kg/m2 Maine Barraza AUTHORIZATION MANAGER-SOCIAL SERVICES COORDINATOR Work Phone: [facility] 01-20-2024 10: Body weight 106.59 kg Maine Barraza AUTHORIZATION MANAGER-SOCIAL SERVICES COORDINATOR Work Phone: [facility] 01-20-2024 10:26-0400 Diastolic blood pressure 62 mm[Hg] Maine Christi AUTHORIZATION MANAGER-SOCIAL SERVICES COORDINATOR Work Phone: [facility] 01-20-2024 10:26-0400 Heart rate 63 /min Maine Christi AUTHORIZATION MANAGER-SOCIAL SERVICES COORDINATOR Work Phone: [facility] 01-20-2024 10:26-0400 Systolic blood pressure 118 mm[Hg] Maine Christi AUTHORIZATION MANAGER-SOCIAL SERVICES COORDINATOR Work Phone: [facility] 12-25-2023 14:52-0400 Diastolic blood pressure 90 mm[Hg] Jjaa [facility] 12-25-2023 14:52-0400 Heart rate 55 /min Jaja Lee [facility] 12-25-2023 14:52-0400 SaO2% (BldA) [Mass fraction] 94 % Jaja Ashsherine [facility] 12-25-2023 14:52-0400 Systolic blood pressure 142 mm[Hg] Jaja Lee [facility] 10-21-2023 12:07-0500 Body height 188 cm Geovani Mack MD Work Phone: [facility] 10-21-2023 12:07-0500 Body mass index (BMI) [Ratio] 30.17 kg/m2 Geovani Mack MD Work Phone: [facility] 10-21-2023 12:07-0500 Body weight 106.59 kg Geovani Mack MD Work Phone: [facility] 10-21-2023 12:07-0500 Diastolic blood pressure 54 mm[Hg] Geovani Mack MD Work Phone: [facility] 10-21-2023 12:07-0500 Heart rate 58 /min Geovani Mack MD Work Phone: [facility] 10-21-2023 12:07-0500 Systolic blood pressure 102 mm[Hg] Geovani Mack MD Work Phone: [facility] 09-16-2023 12:46-0500 Body mass index (BMI) [Ratio] 34.7 kg/m2 Geovani Mack MD Work Phone: [facility] 09-16-2023 12:46-0500 Body weight 106.59 kg Geovani Mack MD Work Phone: [facility] 09-16-2023 12:42-0500 Body height 175.3 cm Geovani Mack MD Work Phone: [facility] 09-16-2023 12:42-0500 Diastolic blood pressure 66 mm[Hg] Geovani Mack MD Work Phone: [facility] 09-16-2023 12:42-0500 Heart rate 112 /min Geovani Mack MD Work Phone: [facility] 09-16-2023 12:42-0500 Systolic blood pressure 104 mm[Hg] Geovani Mack MD Work Phone: [facility] 04-06-2023 09:44-0400 Body mass index (BMI) [Ratio] 30.81 kg/m2 Geovani Mack MD Work Phone: [facility] 04-06-2023 09:44-0400 Body weight 96 kg Geovani Mack MD Work Phone: [facility] 03-26-2023 10:22-0400 Diastolic blood pressure 68 mm[Hg] Jaja [facility] 03-26-2023 10:22-0400 Heart rate 71 /min Jaja Lee [facility] 03-26-2023 10:22-0400 Respiratory rate 14 /min Jaja Lee [facility] 03-26-2023 10:22-0400 SaO2% (BldA) [Mass fraction] 96 % Jaja [facility] 03-26-2023 10:22-0400 Systolic blood pressure 118 mm[Hg] Jaja Lee [facility] 03-24-2023 13:36-0400 Body height 176.53 cm Rugen Debbie Austin Work Phone: [facility] [place] [address] DO Work Phone: 03-24-2023 13:36-0400 Body mass index (BMI) [Ratio] 30.65 kg/m2 Rugen M Austin Work Phone: [facility] [facility] DO Work Phone: 03-24-2023 13:36-0400 Body surface area Derived from formula 2.12 m2 Rugtheresa Lewis Mati Work Phone: [facility] [facility] DO Work Phone: 03-24-2023 13:36-0400 Body weight 95.51 kg Rugen M Mati Work Phone: [facility] [facility] DO Work Phone: 03-24-2023 13:36-0400 Diastolic blood pressure 52 mm[Hg] Rugen M Austin Work Phone: [facility] [facility] DO Work Phone: 03-24-2023 13:36-0400 Heart rate 72 /min Rugen M Austin Work Phone: [facility] [facility] DO Work Phone: 03-24-2023 13:36-0400 Systolic blood pressure 90 mm[Hg] Rugen M Mati Work Phone: [facility] [facility] DO Work Phone: 02-14-2023 12:10-0400 Hourly Rounding Isaías LONNIE [facility] 02-14-2023 12:10-0400 Promise to Return Isaías LONNIE [facility] 02-14-2023 11:15-0400 Heart rate 67 /min Isaías LONNIE [facility] 02-14-2023 11:15-0400 SaO2% (BldA) [Mass fraction] 99 % Isaías LONNIE [facility] 02-14-2023 11:15-0400 Body temperature 97.52 [degF] Isaías LONNIE [facility] 02-14-2023 11:14-0400 Diastolic blood pressure 73 mm[Hg] Isaías LONNIE [facility] 02-14-2023 11:14-0400 Mean blood pressure 91 mm[Hg] Isaías LONNIE [facility] 02-14-2023 11:14-0400 Systolic blood pressure 128 mm[Hg] Isaías LONNIE [facility] 02-14-2023 11:10-0400 Hourly Rounding Isaías LONNIE [facility] 02-14-2023 11:10-0400 Promise to Return Isaías LONNIE [facility] 02-14-2023 10:23-0400 Hourly Rounding Isaías LONNIE [facility] 02-14-2023 10:23-0400 Promise to Return Isaías LONNIE [facility] 02-14-2023 07:34-0400 Heart rate 67 /min Isaías LONNIE [facility] 02-14-2023 07:34-0400 SaO2% (BldA) [Mass fraction] 100 % Isaíasara WILDESLIN [facility] 02-14-2023 07:34-0400 Body temperature 96.26 [degF] Isaías LONNIE [facility] 02-14-2023 07:33-0400 Diastolic blood pressure 80 mm[Hg] Isaías LONNIE [facility] 02-14-2023 07:33-0400 Mean blood pressure 104 mm[Hg] Isaías LONNIE [facility] 02-14-2023 07:33-0400 Systolic blood pressure 153 mm[Hg] Isaías LONNIE [facility] 02-14-2023 00:29-0400 Heart rate 60 /min Isaíasara WILDESLIN [facility] 02-14-2023 00:29-0400 SaO2% (BldA) [Mass fraction] 99 % Isaías LONNIE [facility] 02-14-2023 00:20-0400 Diastolic blood pressure 80 mm[Hg] Isaías LONNIE [facility] 02-14-2023 00:20-0400 Mean blood pressure 105 mm[Hg] Isaías LONNIE [facility] 02-14-2023 00:20-0400 Systolic blood pressure 156 mm[Hg] Isaías LONNIE [facility] 02-14-2023 00:18-0400 Body temperature 97.7 [degF] Isaías LONNIE [facility] 02-13-2023 19:25-0400 Body temperature 97.16 [degF] Isaías LONNIE [facility] 02-13-2023 15:44-0400 Body temperature 96.44 [degF] Isaías WILDESLIN [facility] 02-13-2023 11:00-0400 Body temperature 96.8 [degF] Isaías WILDESLIN [facility] 02-13-2023 10:30-0400 Blood Pressure Location Isaíasara WILDESLIN [facility] 02-13-2023 10:30-0400 Heart rate 50 /min Isaíasara WILDESLIN [facility] 02-13-2023 10:30-0400 Respiratory rate 16 /min Isaíasara WILDESLIN [facility] 02-13-2023 10:10-0400 Mean blood pressure 91 mm[Hg] Isaíasara WILDESLIN [facility] 02-13-2023 10:10-0400 Respiratory rate 20 /min Isaíasara WILDESLIN [facility] 02-13-2023 08:16-0400 Mean blood pressure 97 mm[Hg] Isaíasara WILDESLIN [facility] 02-13-2023 08:16-0400 Respiratory rate 18 /min Isaíasara WILDESLIN [facility] 02-13-2023 07:30-0400 Mean blood pressure 82 mm[Hg] Isaíasara WILDESLIN [facility] 02-13-2023 07:30-0400 Respiratory rate 22 /min Isaíasara WILDESLIN [facility] 02-13-2023 01:02-0400 SaO2% (BldA) [Mass fraction] 95.0 % Isaíasara WILDESLIN [facility] Resp Auto SS 02-13-2023 00:50-0400 gluc 124 mg/dL Isaías LONNIE [facility] 02-13-2023 00:50-0400 gluc Isaías LONNIE [facility] 02-13-2023 00:23-0400 Heart rate 52 /min Isaías LONNIE [facility] 02-13-2023 00:23-0400 Respiratory rate 12 /min Isaías LONNIE [facility] 02-11-2023 10:53-0400 Blood Pressure Location Bushramillie JIMENEZ [facility] 02-11-2023 10:53-0400 Diastolic blood pressure 65 mm[Hg] Bushramillie GONZALEZG [facility] 02-11-2023 10:53-0400 Heart rate 73 /min Bushramillie JIMENEZ [facility] 02-11-2023 10:53-0400 SaO2% (BldA) [Mass fraction] 97 % Bushramillie GONZALEZG [facility] 02-11-2023 10:53-0400 Systolic blood pressure 113 mm[Hg] Bushramillie GONZALEZG [facility] 01-26-2023 12:53-0400 gluc 156 mg/dL Isaías LONNIE [facility] 01-26-2023 12:00-0400 Diastolic blood pressure 60 mm[Hg] Isaías LONNIE [facility] 01-26-2023 12:00-0400 Heart rate 63 /min Isaías LONNIE [facility] 01-26-2023 12:00-0400 Hourly Rounding Isaías LONNIE [facility] 01-26-2023 12:00-0400 Mean blood pressure 82 mm[Hg] Isaías LONNIE [facility] 01-26-2023 12:00-0400 Promise to Return Isaías LONNIE [facility] 01-26-2023 12:00-0400 Respiratory rate 13 /min Isaías LONNIE [facility] 01-26-2023 12:00-0400 Systolic blood pressure 125 mm[Hg] Isaías LONNIE [facility] 01-26-2023 11:00-0400 Hourly Rounding Isaías LONNIE [facility] 01-26-2023 11:00-0400 Promise to Return Isaías LONNIE [facility] 01-26-2023 10:22-0400 gluc 140 mg/dL Isaías LONNIE [facility] 01-26-2023 10:21-0400 Diastolic blood pressure 52 mm[Hg] Isaías LONNIE [facility] 01-26-2023 10:21-0400 Systolic blood pressure 119 mm[Hg] Isaías LONNIE [facility] 01-26-2023 10:00-0400 Hourly Rounding Isaías LONNIE [facility] 01-26-2023 10:00-0400 Promise to Return Isaías LONNIE [facility] 01-26-2023 08:00-0400 Body temperature 97.7 [degF] Isaías LONNIE [facility] 01-26-2023 08:00-0400 Heart rate 62 /min Isaías LONNIE [facility] 01-26-2023 08:00-0400 Mean blood pressure 74 mm[Hg] Isaías WILDESLIN [facility] 01-26-2023 04:00-0400 Blood Pressure Location Isaías FLEMING [facility] 01-26-2023 04:00-0400 Body temperature 98.42 [degF] Isaíasara FLEMING [facility] 01-26-2023 04:00-0400 Heart rate 60 /min Isaíasara WILDESLIN [facility] 01-26-2023 04:00-0400 Mean blood pressure 89 mm[Hg] Isaías FLEMING [facility] 01-26-2023 04:00-0400 Respiratory rate 16 /min Isaíasara FLEMING [facility] 01-26-2023 04:00-0400 SaO2% (BldA) [Mass fraction] 97 % Isaíasara FLEMING [facility] 01-26-2023 00:00-0400 Blood Pressure Location Isaías FLEMING [facility] 01-26-2023 00:00-0400 Body temperature 98.24 [degF] Isaías FLEMING [facility] 01-26-2023 00:00-0400 SaO2% (BldA) [Mass fraction] 97 % Isaíasara WILDESLIN [facility] 01-25-2023 20:35-0400 Heart rate 68 /min Isaíasara WILDESLIN [facility] 01-24-2023 21:08-0400 Heart rate 76 /min Isaíasara WILDESLIN [facility] 01-24-2023 16:32-0400 gluc 208 mg/dL Isaías LONNIE [facility] 01-23-2023 16:35-0400 Respiratory rate 16 /min Isaías LONNIE [facility] 01-23-2023 11:16-0400 Mean blood pressure 87 mm[Hg] Isaías LONNIE [facility] 01-23-2023 08:37-0400 Mean blood pressure 91 mm[Hg] Isaías LONNIE [facility] 01-23-2023 04:06-0400 Mean blood pressure 91 mm[Hg] Isaías LONNIE [facility] 01-22-2023 04:20-0400 Heart rate 87 /min Isaías LONNIE [facility] 01-22-2023 04:20-0400 Respiratory rate 18 /min Isaías LONNIE [facility] 01-22-2023 00:39-0400 gluc Isaías LONNIE [facility] 01-22-2023 00:30-0400 Respiratory rate 18 /min Isaías LONNIE [facility] 12-25-2022 14:42-0400 Hourly Rounding Isaías LONNIE [facility] 12-25-2022 14:42-0400 Promise to Return Isaías LONNIE [facility] 12-25-2022 14:00-0400 Respiratory rate 18 /min Isaías LONNIE [facility] 12-25-2022 13:00-0400 Hourly Rounding Isaías LONNIE [facility] 12-25-2022 13:00-0400 Promise to Return Isaías LONNIE [facility] 12-25-2022 12:32-0400 Hourly Rounding Isaías LONNIE [facility] 12-25-2022 12:32-0400 Promise to Return Isaías LONNIE [facility] 12-25-2022 12:23-0400 gluc 214 mg/dL Isaías LONNIE [facility] 12-25-2022 11:40-0400 Heart rate 53 /min Isaías LONNIE [facility] 12-25-2022 11:40-0400 SaO2% (BldA) [Mass fraction] 99 % Isaías LONNIE [facility] 12-25-2022 11:40-0400 Body temperature 97.88 [degF] Isaías LONNIE [facility] 12-25-2022 11:39-0400 Diastolic blood pressure 67 mm[Hg] Isaías LONNIE [facility] 12-25-2022 11:39-0400 Mean blood pressure 79 mm[Hg] Isaías LONNIE [facility] 12-25-2022 11:39-0400 Systolic blood pressure 102 mm[Hg] Isaías LONNIE [facility] 12-25-2022 09:02-0400 gluc 140 mg/dL Isaías LONNIE [facility] 12-25-2022 08:04-0400 Heart rate 58 /min Isaías LONNIE [facility] 12-25-2022 08:04-0400 SaO2% (BldA) [Mass fraction] 99 % Isaíasara WILDESLIN [facility] 12-25-2022 08:03-0400 Body temperature 97.34 [degF] Isaíasara WILDESLIN [facility] 12-25-2022 08:03-0400 Diastolic blood pressure 75 mm[Hg] Isaíasara WILDESLIN [facility] 12-25-2022 08:03-0400 Mean blood pressure 91 mm[Hg] Siaíasara WILDESLIN [facility] 12-25-2022 08:03-0400 Systolic blood pressure 124 mm[Hg] Isaíasara WILDESLIN [facility] 12-25-2022 02:42-0400 Heart rate 51 /min Isaíasara WILDESLIN [facility] 12-25-2022 02:42-0400 SaO2% (BldA) [Mass fraction] 97 % Isaísaara WILDESLIN [facility] 12-25-2022 02:42-0400 Body temperature 97.52 [degF] Isaíasara WILDESLIN [facility] 12-25-2022 02:41-0400 Diastolic blood pressure 76 mm[Hg] Isaíasara WILDESLIN [facility] 12-25-2022 02:41-0400 Mean blood pressure 92 mm[Hg] Isaíasara WILDESLIN [facility] 12-25-2022 02:41-0400 Systolic blood pressure 125 mm[Hg] Isaíasara WILDESLIN [facility] 12-24-2022 21:22-0400 gluc 202 mg/dL Isaías LONNIE [facility] 12-24-2022 18:00-0400 Respiratory rate 18 /min Isaías LONNIE [facility] 12-24-2022 07:54-0400 Respiratory rate 16 /min Isaías LONNIE [facility] 12-23-2022 11:00-0400 Blood Pressure Location Isaíasara WILDESLIN [facility] 12-23-2022 08:03-0400 Body temperature 97.7 [degF] Isaíasara WILDESLIN [facility] 12-22-2022 21:00-0400 Mean blood pressure 91 mm[Hg] Isaías LONNIE [facility] 12-21-2022 08:21-0400 Heart rate 49 /min Isaíasara WILDESLIN [facility] 12-21-2022 04:15-0400 Mean blood pressure 100 mm[Hg] Isaías LONNIE [facility] 12-21-2022 04:15-0400 Respiratory rate 19 /min Isaías LONNIE [facility] 12-21-2022 04:00-0400 Mean blood pressure 83 mm[Hg] Isaaís LONNIE [facility] 12-21-2022 04:00-0400 Respiratory rate 13 /min Isaías LONNIE [facility] 12-21-2022 03:30-0400 Respiratory rate 12 /min Isaías LONNIE [facility] 12-20-2022 23:22-0400 Heart rate 55 /min Isaías LONNIE [facility] 12-20-2022 23:21-0400 gluc Isaías FLEMING [facility] 12-20-2022 23:07-0400 Heart rate 67 /min Isaías FLEMING [facility] 10-01-2022 11:25-0500 Body height 187.96 cm Ana Norris Other [facility] Other 10-01-2022 11:25-0500 Body mass index (BMI) [Ratio] 28.89 kg/m2 Ana Norris Other [facility] Other 10-01-2022 11:25-0500 Body temperature 97.3 [degF] Ana Norris Other [facility] Other 10-01-2022 11:25-0500 Body weight 102.06 kg Ana Norris Other [facility] Other 10-01-2022 11:25-0500 Diastolic blood pressure 64 mm[Hg] Ana Norris Other [facility] Other 10-01-2022 11:25-0500 Respiratory rate 18 /min Ana Norris Other [facility] Other 10-01-2022 11:25-0500 SaO2% (BldA) [Mass fraction] 98 % Ana Norris Other [facility] Other 10-01-2022 11:25-0500 Systolic blood pressure 108 mm[Hg] Ana Norris Other [facility] Other 09-10-2019 11:21-0500 Body Temperature 97.9 [degF] Jeri Johns [facility] [place] 09-10-2019 11:21-0500 BP Diastolic 73 mm[Hg] Jeri Lion [facility] [place] 09-10-2019 11:21-0500 BP Systolic 142 mm[Hg] Jeri Lion [facility] [place] 09-10-2019 11:21-0500 Pulse (Heart Rate) 65 /min Jeri Johns [facility], [place] 09-10-2019 11:21-0500 Pulse Oximetry 94 % Jeri Lion [facility] [place] 09-10-2019 11:21-0500 Respiratory Rate 14 /min Jeri Johns [facility] [place] 09-10-2019 07:45-0500 BMI (Body Mass Index) 35.25 kg/m2 Jeri Lion [facility], [place] 09-10-2019 07:45-0500 Body weight 124.54 kg Jeri Lion [facility] [place] 09-10-2019 07:45-0500 Height 188 [place] Encounters Encounter Date Encounter Type Care Provider Facility Start: 01-20-2024 End: 01-20-2024 ambulatory MAINE BARRAZA [facility] Ambulatory Start: 01-20-2024 End: 01-20-2024 Office outpatient visit 40 minutes Maine Barraza AUTHORIZATION MANAGER-SOCIAL SERVICES COORDINATOR Work Phone: [facility] Comment on above: Other cardiomyopathy (Multi) (Primary Dx); Paroxysmal atrial fibrillation (Multi); Atherosclerosis of [place] coronary artery of [place] heart without angina pectoris; Diastolic heart failure, unspecified HF chronicity (Multi); Mixed hyperlipidemia; Primary hypertension; Peripheral vascular disease (CMS-HCC); Stented coronary artery; Typical atrial flutter (Multi); Bradycardia; Bullous pemphigoid (Multi) Start: 01-18-2024 End: 01-19-2024 Emergency department patient visit BERNIE GUERRA [facility] Start: 01-18-2024 End: 01-18-2024 Emergency department patient visit CARRIE KEN [facility] Start: 01-18-2024 End: 01-18-2024 Emergency department patient visit BERNIE Arteaga [facility] Start: 01-15-2024 End: 01-16-2024 ambulatory [facility] Start: 01-15-2024 End: 01-15-2024 Subsequent hospital visit by physician Arina [facility] Comment on above: Status post placemen t of implantable loop recorder; Syncope and collapse Start: 01-14-2024 End: 01-14-2024 ambulatory BERNIE Arteaga [facility] Start: 01-08-2024 End: 01-09-2024 [facility] Start: 01-08-2024 End: 01-08-2024 Subsequent hospital visit by physician Arina [facility] Comment on above: Status post placemen t of implantable loop recorder; Syncope and collapse Start: 12-25-2023 End: 12-26-2023 ambulatory XXXX NONE Facility:[facility] Start: 12-25-2023 End: 12-25-2023 Patient encounter procedure Jaja Lee [facility] Start: 12-25-2023 End: 12-26-2023 ambulatory [facility] Start: 12-25-2023 End: 12-25-2023 Subsequent hospital visit by physician Ar[facility] Comment on above: Status post placemen t of implantable loop recorder; Syncope and collapse Start: 12-18-2023 End: 12-19-2023 ambulatory [facility] Start: 12-18-2023 End: 12-18-2023 Subsequent hospital visit by physician Ar[facility] Comment on above: Status post placemen t of implantable loop recorder; Syncope and collapse Start: 12-11-2023 End: 12-12-2023 [facility] Start: 12-11-2023 End: 12-11-2023 Subsequent hospital visit by physician Ar[facility] Comment on above: Status post placemen t of implantable loop recorder; Syncope and collapse Start: 12-04-2023 End: 12-05-2023 [facility] Start: 12-04-2023 End: 12-04-2023 Subsequent hospital visit by physician Ar[facility] Comment on above: Status post placemen t of implantable loop recorder; Syncope and collapse Start: 11-13-2023 Clinis[facility] Result Encounter Hermilo Thorne MD Work Phone: [facility] Unsolicited Start: 11-13-2023 Clinisync Result Encounter Hermilo Thorne MD Work Phone: [facility] Unsolicited Start: 11-13-2023 End: 11-14-2023 [facility] Start: 11-06-2023 End: 11-07-2023 [facility] Start: 11-06-2023 End: 11-06-2023 Subsequent hospital visit by physician Ar[facility] Comment on above: Status post placemen t of implantable loop recorder; Syncope and collapse Start: 10-30-2023 End: 10-31-2023 [facility] Start: 10-30-2023 End: 10-30-2023 Subsequent hospital visit by physician Ar[facility] Comment on above: Status post placemen t of implantable loop recorder; Syncope and collapse Start: 10-21-2023 End: 10-22-[address] [facility] Start: 10-21-2023 End: 10-21-2023 Office outpatient visit 40 minutes Geovani Mack MD Work Phone: [facility] Comment on above: Abnormal EKG (Primar y Dx); Former smoker; Status post placement of implantable loop recorder; Syncope and collapse; Longstanding persistent atrial fibrillation (CMS/HCC); Anticoagulation management encounter; Palpitations; BMI 30.0-30.9,adult; High risk medication use; Bradycardia Start: 10-21-2023 End: 10-21-2023 Subsequent hospital visit by physician [facility] Comment on above: Status post placemen t of implantable loop recorder Start: 10-14-2023 End: 10-14-2023 Evaluation and management of inpatient [facility] Start: 10-14-2023 End: 10-14-2023 Evaluation and management of inpatient ESTHER M [facility] Start: 10-14-2023 End: 10-14-2023 Evaluation and management of inpatient [facility] Start: 10-13-2023 End: 10-13-2023 Evaluation and management of inpatient ESTHER M [facility] Start: 10-13-2023 End: 10-13-2023 Evaluation and management of inpatient ESTHER M [facility] Start: 10-13-2023 End: 10-13-2023 Evaluation and management of inpatient [facility] Start: 10-12-2023 End: 10-12-2023 Evaluation and management of inpatient [facility] Start: 10-12-2023 End: 10-12-2023 ambulatory ESTHER M [facility] Start: 10-12-2023 End: 10-14-2023 Evaluation and management of inpatient ESTHER M [facility] Start: 10-09-2023 End: 10-10-[address] [facility] Start: 10-09-2023 End: 10-09-2023 Subsequent hospital visit by physician Arina [facility] Comment on above: Status post placemen t of implantable loop recorder; Syncope and collapse Start: 10-07-2023 End: 10-07-2023 Emergency department patient visit Jered Chavis Facility:[facility] Start: 09-25-2023 End: 09-26-2023 ambulatory [facility] Start: 09-25-2023 End: 09-25-2023 Subsequent hospital visit by physician [facility] Comment on above: Status post placemen t of implantable loop recorder; Syncope and collapse Start: 09-18-2023 End: 09-19-2023 ambulatory [facility] Start: 09-18-2023 End: 09-18-2023 Subsequent hospital visit by physician Ar[facility] Comment on above: Status post placemen t of implantable loop recorder; Syncope and collapse Start: 09-16-2023 End: 09-17-[address] [facility] Start: 09-16-2023 End: 09-16-2023 Office outpatient visit 40 minutes Geovani Mack MD Work Phone: [facility] Comment on above: Anticoagulation feliciano gement encounter (Primary Dx); Abnormal EKG; Longstanding persistent atrial fibrillation (CMS/HCC); Primary hypertension; Palpitations; Status post placement of implantable loop recorder; BMI 34.0-34.9,adult; Former smoker Start: 09-16-2023 End: 09-16-2023 Subsequent hospital visit by physician [facility] Comment on above: Presence of other ca rdiac implants and grafts; Syncope and collapse Start: 09-11-2023 End: 09-12-2023 ambulatory [facility] Start: 09-11-2023 End: 09-11-2023 Subsequent hospital visit by physician Ar[facility] Comment on above: Status post placemen t of implantable loop recorder; Syncope and collapse Start: 09-04-2023 End: 09-05-2023 ambulatory [facility] Start: 09-04-2023 End: 09-04-2023 Subsequent hospital visit by physician Ar[facility] Comment on above: Status post placemen t of implantable loop recorder; Syncope and collapse Start: 08-26-2023 End: 08-27-2023 ambulatory [facility] Start: 08-26-2023 End: 08-26-2023 Subsequent hospital visit by physician Arina [facility] Comment on above: Status post placemen t of implantable loop recorder; Syncope and collapse Start: 08-21-2023 End: 08-22-2023 ambulatory [facility] Start: 08-21-2023 End: 08-21-2023 Subsequent hospital visit by physician Arina [facility] Comment on above: Status post placemen t of implantable loop recorder; Syncope and collapse Start: 08-14-2023 End: 08-15-2023 ambulatory [facility] Start: 08-14-2023 End: 08-14-2023 Subsequent hospital visit by physician Ar[facility] Comment on above: Status post placemen t of implantable loop recorder; Syncope and collapse Start: 08-07-2023 End: 08-08-2023 ambulatory [facility] Start: 08-07-2023 End: 08-07-2023 Subsequent hospital visit by physician Ar[facility] Comment on above: Status post placemen t of implantable loop recorder; Syncope and collapse Start: 07-16-2023 End: 07-17-2023 ambulatory [facility] Start: 07-16-2023 End: 07-16-2023 Subsequent hospital visit by physician Ar[facility] Comment on above: Status post placemen t of implantable loop recorder; Syncope and collapse Start: 06-25-2023 End: 06-26-2023 ambulatory XXXX NONE Facility:[facility] Start: 06-15-[address] Hermilo Thorne Facility:[id number] Start: 05-11-[address] Hermilo Thorne Facility:[id number] Start: 04-13-2023 ambulatory GEOVANI MACK Facility:[id number] Start: 04-06-2023 End: 04-06-[address] Geovani Mack Facility:[id number] Start: 04-06-2023 End: 04-06-2023 Subsequent hospital visit by physician Geovani Mack MD Work Phone: [facility] Comment on above: Syncope and collapse Start: 03-26-2023 End: 03-27-2023 ambulatory XXXX NONE Facility:[facility] Start: 03-26-2023 End: 03-26-2023 Patient encounter procedure Jaja Lee [facility] Start: 03-24-2023 Office consultation new/estab patient 80 min Hermilo Thorne Work Phone: -[facility] [facility] DO Work Phone: Start: 03-24-2023 ambulatory GEOVANI MACK Facility:[id number] Start: 02-24-2023 End: 02-25-2023 ambulatory MANDO JIMENEZ Facility:[facility] Start: 02-17-2023 End: 02-17-2023 Emergency department patient visit Venussuzi Chandler Natalee Facility:[facility] Start: 02-13-2023 End: 02-14-2023 ambulatory John Lyn Facility:[facility] Start: 02-13-2023 End: 02-14-2023 Observation Isaías FLEMING [facility] Start: 02-11-2023 End: 02-12-2023 ambulatory MANDO JIMENEZ Facility:[facility] Start: 02-11-2023 End: 02-11-2023 Patient encounter procedure Bushra JIMENEZ [facility] Start: 02-11-2023 End: 02-11-[address] HERMILO THORNE Facility:[facility] Start: 01-22-2023 End: 01-26-2023 Evaluation and management of inpatient Isaías FLEMING [facility] Start: 01-15-2023 End: 01-15-[address] LILIA ENGEL Facility:[facility] Start: 12-30-2022 End: 01-23-2023 Pre-admission assessment Kelly MACIAS [facility] Start: 12-24-2022 ambulatory GEOVANI MACK Facility:[id number] Start: 12-20-2022 End: 12-25-2022 Evaluation and management of inpatient Isaías FLEMING [facility] Start: 12-17-2022 End: 12-18-[address] [...] Start: 10-01-2022 End: 10-01-2022 ambulatory Ana Norris Facility:[facility] Start: 10-01-2022 End: 10-01-2022 ambulatory MD Bernie Guerra Work Phone: [facility] Work Phone: Start: 10-01-2022 End: 10-01-2022 Patient encounter procedure MD Bernie Guerra Work Phone: [facility] Work Phone: Start: 08-13-2022 End: 08-15-[address] BERNIE GUERRA Facility:[facility] Start: 09-06-2019 End: 09-10-2019 Evaluation and management of inpatient JERI AMISHA [facility] Start: 09-06-2019 End: 09-10-2019 Evaluation and management of inpatient Jeri Amisha Work Phone: [facility]/Med Surg Patient encounter status Hermilo Thorne Work Phone: -[facility] [facility] DO Work Phone: Procedures Date Procedure Procedure Detail Performing Clinician Start: 01-15-2024 CARDIAC DEVICE CHECK - REMOTE ESTHER LÓPEZ Start: 01-08-2024 CARDIAC DEVICE CHECK - REMOTE ESTHER LÓPEZ Start: 01-08-2024 Rem interrog scrms <30 d phys/qhp Geovani Mack MD Work Phone: Start: 12-25-2023 CARDIAC DEVICE CHECK - REMOTE [...] Phone: Start: 09-10-2019 INCENTIVE SPIROMETRY RT JERI KATMELINDAA DDA Start: 09-10-2019 DISCHARGE PATIENT JERI MENDOZAADDA Start: 09-10-2019 CPAP JERI MENDOZAADDA Start: 09-10-2019 INCENTIVE SPIROMETRY RT JERI ZAMBRANOMELINDAA DDA Start: 09-10-2019 Glucose blood reagent strip JERI KENYA RAGADDA Start: 09-10-2019 INCENTIVE SPIROMETRY RT JERI ZAMBRANOMELINDAA DDA Start: 09-10-2019 Glucose blood reagent strip Shawn noriega Work Phone: Start: 09-10-2019 Gluc bld gluc mntr dev cleared fda spec home use JERI LION Start: 09-10-2019 CPAP EJRI LION Start: 09-10-2019 INCENTIVE SPIROMETRY RT JERI OLMEDO DDA Start: 09-10-2019 INITIATE OXYGEN THERAPY PROTOCOL JERI LION Start: 09-10-2019 NASAL CANNULA OXYGEN JERI LION Start: 09-10-2019 AMBULATE PATIENT JERI LION Start: 09-10-2019 STRIP BULB SUCTION JERI LION Start: 09-10-2019 Glucose blood reagent strip JERI KYLE Start: 09-10-2019 INCENTIVE SPIROMETRY RT JERI OLMEDO DDA Start: 09-10-2019 Glucose blood reagent strip Shawn Brittany Lara hari Work Phone: Start: 09-10-2019 CPAP JERI LION Start: 09-10-2019 Gluc bld gluc mntr dev cleared fda spec home use JERI LION Start: 09-10-2019 INTAKE AND OUTPUT JERI LION [...] DDA Start: 09-09-2019 Glucose blood reagent strip JERIDEE JIMADDA Start: 09-09-2019 CPAP JERI SHRESTHAA Start: 09-09-2019 INCENTIVE SPIROMETRY RT [...] INCENTIVE SPIROMETRY RT JERI PARISH Start: 09-09-2019 INITIATE OXYGEN THERAPY PROTOCOL JERI [...] dev cleared fda spec home use JERI MENDOZAADDA Start: 09-09-2019 BASIC METABOLIC PANEL W/ REFLEX TO MG FOR LOW K Ceci Turcios Work Phone: Start: 09-09-2019 Blood count complete auto&auto difrntl wbc Ceci Turcios Work Phone: Start: 09-09-2019 INTAKE AND OUTPUT JERI MENDOZAADDA Start: 09-09-2019 CPAP JERI MENDOZAADDA Start: 09-09-2019 Gluc bld gluc mntr dev cleared fda spec home use JERI MENDOZAADDA Start: 09-09-2019 INCENTIVE SPIROMETRY RT JERI MENDOZAA DDA Start: 09-08-2019 CPAP JERI MENDOZAADDA Start: 09-08-2019 INCENTIVE SPIROMETRY RT JERI MENDOZAA DDA Start: 09-08-2019 Glucose blood reagent strip JERI JIMADDA Start: 09-08-2019 Gluc bld gluc mntr dev cleared fda spec home use JERI MENDOZAADDA Start: 09-08-2019 INCENTIVE SPIROMETRY RT JERI MENDOZAA DDA Start: 09-08-2019 Glucose blood reagent strip Jeri jimadda Work Phone: Start: 09-08-2019 Glucose blood reagent strip JERI JIMADDA Start: 09-08-2019 CPAP JERI ZAMBRANORAGADDA Start: 09-08-2019 INCENTIVE SPIROMETRY RT JERI MENDOZAA DDA Start: 09-08-2019 Glucose blood reagent strip Jeri jimadda Work Phone: Start: 09-08-2019 INCENTIVE SPIROMETRY RT JERI MENDOZAA DDA Start: 09-08-2019 Glucose blood reagent strip JERI ZAMBRANO RAGADDA Start: 09-08-2019 CPAP JERI ZAMBRANORAGADDA Start: 09-08-2019 INCENTIVE SPIROMETRY RT JERI MENDOZAA DDA Start: 09-08-2019 OT EVAL AND TREAT JERI MENDOZAADDA Start: 09-08-2019 PT EVAL AND TREAT JERI MENDOZAADDA Start: 09-08-2019 Glucose blood reagent strip Jeri [...] complete auto&auto difrntl wbc JERI LION Start: 09-08-2019 Comprehensive metabolic panel JERI LION Start: 09-08-2019 Glucose blood reagent strip Jeri kyle Work Phone: Start: 09-08-2019 CPAP JERI LION Start: 09-08-2019 Gluc bld gluc mntr dev cleared fda spec home use JERI LION Start: 09-08-2019 BASIC METABOLIC PANEL W/ REFLEX TO MG FOR LOW K Ceci Turcios Work Phone: Start: 09-08-2019 Blood count complete auto&auto difrntl wbc Ceci Turcios Work Phone: Start: 09-08-2019 End: 09-08-2019 Glucose blood reagent strip Jeri kyle Work Phone: Start: 09-08-2019 End: 09-08-2019 Glucose blood reagent strip Jeri kyle Work Phone: Start: 09-08-2019 INTAKE AND OUTPUT JERI LION Start: 09-08-2019 CPAP JERI LION Start: 09-08-2019 Gluc bld gluc mntr dev cleared fda spec home use JERI LION Start: 09-08-2019 Glucose blood reagent strip Jeri kyle Work Phone: Start: 09-08-2019 INCENTIVE SPIROMETRY RT JERI PARISH Start: 09-07-2019 CPAP JERI LION Start: 09-07-2019 Glucose blood reagent strip Jeri [...] Phone: Start: 09-07-2019 INCENTIVE SPIROMETRY RT JERI OLEMDO DDA Start: 09-07-2019 INCENTIVE SPIROMETRY RT JERI [...] JERI LION Start: 09-07-2019 IP CONSULT TO JAVASCRIPT APPLICATION DEVELOPER JERI LION Start: 09-07-2019 WOUND CARE JERI [...] Culture bacterial blood aerobic w/id isolates JERI MENDOZAADDA Start: 09-07-2019 BASIC METABOLIC PANEL W/ REFLEX TO MG FOR LOW K Ceci Turcios Work Phone: Start: 09-07-2019 Blood count complete auto&auto difrntl wbc Ceci Turcios Work Phone: Start: 09-07-2019 Hemoglobin glycosylated a1c Rocky Murry mayda Work Phone: Start: 09-07-2019 DAILY WEIGHTS JERI LION Start: 09-07-2019 INTAKE AND OUTPUT JERI LION Start: 09-07-2019 Gluc bld gluc mntr dev cleared fda spec home use JERI LION Start: 09-07-2019 Glucose blood reagent strip JERI CORDOVAA Start: 09-07-2019 Assay of lactate JERI LION Start: 09-07-2019 Blood count complete auto&auto difrntl wbc JERI LION Start: 09-07-2019 C-reactive protein JERI SHRESTHAA Start: 09-07-2019 Ketone bodies serum quantitative JERI SHRESTHAA Start: 09-07-2019 TYPE AND SCREEN JERI LION Start: 09-06-2019 Iadna s aureus methicillin resist amp probe tq JERI LION Start: 09-06-2019 Glucose blood reagent strip JERI CORDOVAA Start: 09-06-2019 Antibody screen Jeri Lion Start: [...] Start: 09-06-2019 Ketone bodies serum quantitative Rocky Samson Jaywindybrenton Work Phone: Start: 09-06-2019 Blood typing serologic [...] prsmptv pthgnc organism scrn w/colony estimj Jeri Mendozaadda Work Phone: Start: 09-06-2019 REASON FOR NO CHEMICAL VTE PROPHYLAXIS JERI LION Start: 09-06-2019 FULL CODE JERI LION Start: 09-06-2019 INITIATE OXYGEN THERAPY PROTOCOL JERI MENDOZAADDA Start: 09-06-2019 INTAKE AND OUTPUT JERI LION Start: 09-06-2019 IP CONSULT TO GENERAL SURGERY JERI MENDOZAADDA Start: 09-06-2019 PLACE INTERMITTENT PNEUMATIC COMPRESSION DEVICE JERI MENDOZAADDA Start: 09-06-2019 RESPIRATORY CARE EVALUATION ONLY JERI MENDOAZADDA Start: 09-06-2019 TELEMETRY MONITORING JERI SHRESTHAA Start: 09-06-2019 TOBACCO CESSATION EDUCATION JERI CORDOVAA Start: 09-06-2019 VITAL SIGNS JERI SHRESTHAA Start: 09-06-2019 End: 09-06-2019 LEG INCISION AND DRAINAGE Lemuel Kelsey ed Work Phone: Start: 09-06-2019 BLOOD BANK SPECIMEN Jeri Mendozaadda Work Phone: Start: 09-06-2019 RESPIRATORY CARE EVALUATION ONLY Benjamin Chapman Work Phone: Start: 09-06-2019 PATIENT STATUS (DIRECT) JERI OLMEDO DDA 0 dx img order chest xray ct us mri pet/nuc carlos Lee Cardiac catheterization Aaliyah Lewis [place] Work Phone: Catheter ablation of arrhythmogenic focus Hermilo M Austin Work Phone: Laparoscopic cholecystectomy Claireen M Mati Work Phone: Operative procedure on knee Rugen M Austin Work Phone: Procedure on back Hermilo M Al da Work Phone: Repair of shoulder Claireen M A lda Work Phone: Plan of Treatment Date Care Activity Detail Author Start: 06-05-2024 Influenza vaccination Influenz a Vaccine (Season Ended) [facility] Start: 04-20-2024 End: 01-19-2026 US Heart Transthoracic Transthoracic Echo (TTE) Complete Echocardiography Routine Diastolic heart failure, unspecified HF chronicity (Multi) Other cardiomyopathy (Multi) Expected: 04/20/2024 (Approximate), Expires: 01/19/2026 [facility] Service Area Work Phone: Comment on above: Expected: 04/20/2024 (Approximate), Expires: 01/19/2026 Start: 04-20-2024 End: 04-20-2024 Patient encounter procedure [facility] Start: 01-20-2024 End: 01-20-2024 Patient encounter procedure 01/20/2024 10:30 AM EDT Office Visit [facility] [address] [facility] [address] [place] [phone] Maine Barraza E, AUTHORIZATION MANAGER-SOCIAL SERVICES COORDINATOR [address] [facility] [address] [place], [place] [id number] [facility] Start: 10-21-2023 End: 10-21-2023 Patient encounter procedure 10/21/2023 12:45 PM EST Office Visit [facility] [address] [place] [phone] Geovani Mack MD [address] [facility] [address] [place] [address] [facility] Start: 09-16-2023 End: 09-16-2023 Patient encounter procedure [facility] Start: 06-05-2023 COVID-19 Vaccine ( season) COVID-19 Vaccine ( season) [facility] Start: 06-05-2023 Influenza vaccination Influenza Vacc ine (#1) [facility] Start: 04-13-2023 FUV, Provider: Geovani Mack, Status: Pen, Time: 10:30 AM FUV, Provider: Geovani Mack, Status: Pen, Time: 10:30 AM [facility] [address] DO Work Phone: Start: 09-09-2020 [facility] [place] [place] Start: 09-09-2020 Potassium monitoring Potassium monit oring [place], [place] Start: 06-05-2019 Influenza vaccination Flu vaccine (# 1) [place], [place] Start: 2018 Abdominal aortic aneurysm screening Abdominal Aortic Aneurysm (AAA) Screening [facility] Start: 2018 Pneumococcal 65+ yea rs Vaccine (1 of 1 - PPSV23) Pneumococcal 65+ years Vaccine (1 of 1 - PPSV23) [place], [place] Start: 2018 Pneumococcal Vaccine : 65+ Years (1 - PCV) Pneumococcal Vaccine: 65+ Years (1 - PCV) [facility] Start: 2003 Zoster Vaccines (1 o f 2) Zoster Vaccines (1 of 2) [facility] Start: 1975 DTaP/Tdap/Td Vaccine s (1 - Tdap) DTaP/Tdap/Td Vaccines (1 - Tdap) [facility] Start: 1972 Urine screening for protein Diabetes: Urine Protein Screening [facility] Start: 1971 Diabetes mellitus screening Diabetes Screening [facility] Start: 1971 Hepatitis C screening Hepatitis C Sc reening [facility] Start: 1963 Diabetic foot examination Diabetes: Foot Exam [facility] Start: 1963 Glaucoma screening Diabetes: R etinopathy Screening [facility] Start: 1959 Pneumococcal Vaccine : 65+ Years (1 - PCV) Pneumococcal Vaccine: 65+ Years (1 - PCV) [facility] Start: 1959 Pneumococcal Vaccine : 65+ Years (1 of 2 - PCV) Pneumococcal Vaccine: 65+ Years (1 of 2 - PCV) [facility] Start: 04-17-1954 COVID-19 Vaccine (#1) COVID-19 Vacci ne (#1) [facility] Start: 1953 Hemoglobin A1c measurement Diabetes: Hemoglobin A1C [facility] Start: 1953 Lipid panel Lipid Panel [facility] Start: 1953 Medicare Annual Wellness Visit Medicare Annual Wellness Visit (AWV) [facility] Start: 1955 Screening for malign ant neoplasm of colon [facility] Anaerobic and Aerobi c Culture Anaerobic and Aerobic Culture Microbiology Routine 09/06/2019 8:39 PM EST [place], [place] End: 09-16-2024 Cardiac Device Check - In Clinic Cardiac Device Check - In Clinic Implantable Cardiac Device Routine Status post placement of implantable loop recorder 1 Occurrences starting 09/16/2023 until 09/16/2024 [facility] Work Phone: Comment on above: 1 Occurrences starti ng 09/16/2023 until 09/16/2024 Cardiac device check - In Clinic Cardiac device check - In Clinic Implantable Cardiac Device Routine Presence of other cardiac implants and grafts Syncope and collapse 09/16/2023 12:04 PM EST [facility] Work Phone: Cardiac Device Check - In Clinic Cardiac Device Check - In Clinic Implantable Cardiac Device Routine Status post placement of implantable loop recorder 10/21/2023 11:30 AM EST [facility] Work Phone: End: 08-07-2023 Cardiac Device Check - Remote [facility] Work Phone: Comment on above: Once for 1 Occurrenc es starting 08/07/2023 until 08/07/2023 End: 08-14-2023 Cardiac Device Check - Remote [facility] Service Area Work Phone: Comment on above: Once for 1 Occurrenc es starting 08/14/2023 until 08/14/2023 End: 08-21-2023 Cardiac Device Check - Remote [facility] Service Area Work Phone: Comment on above: Once for 1 Occurrenc es starting 08/21/2023 until 08/21/2023 End: 08-26-2023 Cardiac Device Check - Remote [facility] Service Area Work Phone: Comment on above: Once for 1 Occurrenc es starting 08/26/2023 until 08/26/2023 End: 09-04-2023 Cardiac Device Check - Remote [facility] Service Area Work Phone: Comment on above: Once for 1 Occurrenc es starting 09/04/2023 until 09/04/2023 End: 09-11-2023 Cardiac Device Check - Remote [facility] Service Area Work Phone: Comment on above: Once for 1 Occurrenc es starting 09/11/2023 until 09/11/2023 End: 09-18-2023 Cardiac Device Check - Remote [facility] Service Area Work Phone: Comment on above: Once for 1 Occurrenc es starting 09/18/2023 until 09/18/2023 End: 09-25-2023 Cardiac Device Check - Remote [facility] Service Area Work Phone: Comment on above: Once for 1 Occurrenc es starting 09/25/2023 until 09/25/2023 End: 10-09-2023 Cardiac Device Check - Remote [facility] Service Area Work Phone: Comment on above: Once for 1 Occurrenc es starting 10/09/2023 until 10/09/2023 End: 10-30-2023 Cardiac Device Check - Remote [facility] Service Area Work Phone: Comment on above: Once for 1 Occurrenc es starting 10/30/2023 until 10/30/2023 End: 11-06-2023 Cardiac Device Check - Remote [facility] Service Area Work Phone: Comment on above: Once for 1 Occurrenc es starting 11/06/2023 until 11/06/2023 End: 12-11-2023 Cardiac Device Check - Remote [facility] Service Area Work Phone: Comment on above: Once for 1 Occurrenc es starting 12/11/2023 until 12/11/2023 End: 12-25-2023 Cardiac Device Check - Remote [facility] Service Area Work Phone: Comment on above: Once for 1 Occurrenc es starting 12/25/2023 until 12/25/2023 End: 01-15-2024 Cardiac Device Check - Remote [facility] Service Area Work Phone: Comment on above: Once for 1 Occurrenc es starting 01/15/2024 until 01/15/2024 CPAP CPAP Respiratory Care Routine Every 4hr until discontinued starting 09/08/2019 [facility] [place] Comment on above: Every 4hr until disc ontinued starting 09/08/2019 [facility] spirometry RT Incentiv e spirometry RT Respiratory Care Routine Every 2hr while awake until discontinued starting 09/07/2019 [facility] [place] Comment on above: Every 2hr while awak e until discontinued starting 09/07/2019 Initiate Oxygen Ther apy Protocol Initiate Oxygen Therapy Protocol Respiratory Care Routine Daily until discontinued starting 09/06/2019 [facility] [place] Comment on above: Daily until disconti nued starting 09/06/2019 MDI Treatment MDI Treatment Re spiratory Care Routine Every 6hr As Needed until discontinued starting 09/07/2019 [facility] [place] Comment on above: Every 6hr As Needed until discontinued starting 09/07/2019 Nasal Cannula Oxygen Nasal Cannu la Oxygen Respiratory Care Routine Daily until discontinued starting 09/07/2019 [facility] [place] Comment on above: Daily until disconti nued starting 09/07/2019 [facility] on above: 4X Daily (AC & HS) u ntil discontinued starting 09/07/2019 As Needed until disc ontinued starting 09/06/2019 As Needed until disc ontinued starting 09/07/2019 As Needed until disc ontinued starting 09/08/2019 Tissue Culture Tissue Culture Microbiology Routine 09/06/2019 8:39 PM [place] Immunizations Immunization Date Immunization Notes Care Provider Rehana ange 08-04-2022 Influenza, Seasonal, Quadrivalent, Adjuvanted Hermilo Thorne MD Work Phone: [facility] 08-04-2022 influenza virus vaccine, unspecified formulation [facility] Work Phone: 09-16-2021 influenza, injectabl e, quadrivalent, preservative free Hermilo Thorne MD Work Phone: [facility] 07-09-2020 influenza, injectabl e, quadrivalent, preservative free Hermilo Thorne MD Work Phone: [facility] Healthcare Payers Date Payer Category Payer Unknown [id number] 2022 Medicaid [id number] 2022 Unknown 2022 Self-pay 2019 Private Health Insurance [facility] MED[employer] SUPP xxxxxxxxxxx 2019-Present [phone] [address] [place] [address] xxxxxxxxxxx [id number] 2018 Medicare MEDICARE MEDICAR E PART A AND B xxxxxxxxxx 2018-Present [phone] [address] [address] [place] [address] xxxxxxxxxx [id number] 2018 Medicare [id number] 2018 Medicare [id number]. [id number]. [id number] 1959 Medicaid [id number] 1959 Medicare [id number] 1959 Private Health Insurance [id number] 1959 Unknown [id number] 1953 Unknown [id number] 2.16.840.1.105543.3.579.2. 175 1953 Unknown [id number] 2.16.840.1.578447.3.579.2. 593 1953 Unknown [id number] 2.16.840.1.297997.3.579.2. 593 1953 Unknown [id number] 2.16.840.1.276480.3.579.2. 593 1953 Unknown [id number] 2.16.840.1.832593.3.579.2. 593 1953 Unknown [id number] 2.16.840.1.045509.3.579.2. 593 1953 Unknown [id number] 2.16.840.1.387442.3.579.2. 593 1953 Unknown [id number] 2.16.840.1.869061.3.579.2. 593 1953 Unknown [id number] 2.16.840.1.886660.3.579.2. 593 1953 Unknown [id number] 2.16.840.1.992305.3.579.2. 1068 1953 Unknown [id number] 2.16.840.1.261693.3.579.2. 1068 1953 Unknown [id number] 2.16.840.1.859110.3.579.2. 1068 1953 Unknown [id number] 2.16.840.1.619056.3.579.2. 356 1953 Unknown [id number] 2.16.840.1.391322.3.579.2. 356 1953 Unknown [id number] 2.16.840.1.191875.3.579.2. 356 1953 Unknown [id number] 2.16.840.1.783767.3.579.2. 1244 1953 Unknown [id number] 2.16.840.1.946592.3.579.2. 1244 1953 Unknown [id number] 2.16.840.1.829589.3.579.2. 4 1953 Unknown [id number] 2.16.840.1.914787.3.579.2. 4 1953 Unknown [id number] 2.16.840.1.431264.3.579.2. 173 1953 Unknown [id number] 2.16.840.1.475937.3.579.2. 173 1953 Unknown [id number] 2.16.840.1.897404.3.579.2. 173 1953 Unknown [id number] 2.16.840.1.003053.3.579.2. 1245 1953 Unknown [id number] 2.16.840.1.021774.3.579.2. 1245 1953 Unknown [id number] 2.16.840.1.718782.3.579.2. 1245 1953 Unknown [id number] 2.16.840.1.691013.3.579.2. 1245 1953 Unknown [id number] 2.16.840.1.044190.3.579.2. 1245 1953 Unknown [id number] 2.16.840.1.117125.3.579.2. 1245 1953 Unknown [id number] 2.16.840.1.859711.3.579.2. 1245 1953 Unknown [id number] 2.16.840.1.863238.3.579.2. 1245 1953 Unknown [id number] 2.16.840.1.456155.3.579.2. 1245 1953 Unknown [id number] 2.16.840.1.258646.3.579.2. 1245 1953 Unknown [id number] 2.16.840.1.880119.3.579.2. 1245 1953 Unknown [id number] 2.16.840.1.107148.3.579.2. 1245 1953 Unknown [id number] 2.16.840.1.540012.3.579.2. 1245 1953 Unknown [id number] 2.16.840.1.530352.3.579.2. 1245 1953 Unknown [id number] 2.16.840.1.242201.3.579.2. 1245 1953 Unknown [id number] 2.16.840.1.338626.3.579.2. 1245 1953 Unknown [id number] 2.16.840.1.022741.3.579.2. 1245 1953 Unknown [id number] 2.16.840.1.016209.3.579.2. 1245 1953 Unknown [id number] 2.16.840.1.044839.3.579.2. 1245 1953 Unknown [id number] 2.16.840.1.339145.3.579.2. 1245 1953 Unknown [id number] 2.16.840.1.290004.3.579.2. 1245 1953 Unknown [id number] 2.16.840.1.991835.3.579.2. 1245 1953 Unknown [id number] 2.16.840.1.507453.3.579.2. 1245 1953 Unknown [id number] 2.16.840.1.009293.3.579.2. 1245 1953 Unknown [id number] 2.16.840.1.989771.3.579.2. 1246 1953 Unknown [id number] 2.16.840.1.302433.3.579.2. 1246 1953 Unknown [id number] 2.16.840.1.179610.3.579.2. 1246 1953 Unknown [id number] 2.16.840.1.985770.3.579.2. 1246 1953 Unknown [id number] 2.16.840.1.150341.3.579.2. 1246 1953 Unknown [id number] 2.16.840.1.562593.3.579.2. 1246 1953 Unknown [id number] 2.16.840.1.119764.3.579.2. 727 1953 Unknown [id number] 2.16.840.1.783042.3.579.2. 727 1953 Unknown [id number] 2.16.840.1.161295.3.579.2. 727 1953 Unknown [id number] 2.16.840.1.611742.3.579.2. 727 1953 Unknown [id number] 2.16.840.1.521137.3.579.2. 727 1953 Unknown [id number] 2.16.840.1.075472.3.579.2. 727 1953 Unknown [id number] 2.16.840.1.337410.3.579.2. 727 1953 Unknown [id number] 2.16.840.1.397446.3.579.2. 727 Unknown [id number] 2.16.840.1.431993.3.579.2. 531 Unknown Dima BC/BS HUONG [id number] Social History Date Type Detail Facility Start: 09-09-2019 Tobacco smoking stat [facility] Start: 09-09-2019 End: 10-21-2023 Cigarettes smoked current (pack per day) - [facility] Comment on above: 1 cup daily; quit 10/2022, smoked X 50 years; Start: 09-09-2019 Alcohol intake Lifetime non-d emanuel (finding) [facility] Start: 09-07-2019 History SDOH Alcohol Frequency 1 [facility] Start: 09-07-2019 Tobacco Comment currently quit ting, now 5 cigs/day [facility] Start: 1955 [facility] Start: 1955 Sex Assigned At Male F [facility] Start: 09-16-2023 End: 10-21-2023 Sex Assigned At [facility] Start: 12-21-2022 Tobacco smoking status Heavy t obacco smoker (finding) [facility] Comment on above: 1.5 ppd. Has not smo ked since October 03, 2022 Tobacco quit this month Tobacco Use:. [facility] Comment on above: unknown. unable to a ssess at this time. Tobacco smoking status No Smokin g Status Entered [facility] Start: 02-11-2023 End: 01-20-2024 Tobacco smoking status Ex-smoker (finding) [facility] Comment on above: unknown. unable to a ssess at this time. Tobacco smoking status Never [facility] Comment on above: unknown. unable to a ssess at this time. Tobacco smoking stat [facility] Tobacco smoking consumption unknown [facility] Work Phone: Start: 07-06-2023 End: 07-16-2023 Exposure to SARS-CoV-2 (event) Unable to assess [facility] End: 10-05-2022 History of tobacco use Current smoker [facility] Work Phone: End: 10-05-2022 History of tobacco use Cigarette Smoker [facility] Work Phone: Start: 09-16-2023 End: 01-20-2024 Tobacco use and exposure Smokeless tobacco non-user [facility] Work Phone: Start: 09-16-2023 End: 01-20-2024 Alcohol intake Ex-drinker (finding) [facility] Work Phone: Start: 09-06-2023 End: 01-20-2024 Exposure to SARS-CoV-2 (event) Not sure [facility] Functional Status Date Assessment Result Facility 12-25-2023 Functional Status N/A [facility] 03-26-2023 Functional Status No [facility] 02-13-2023 Functional Status N/A [facility] 02-13-2023 Functional Status [facility] 02-11-2023 Functional Status No [facility] 01-22-2023 Functional Status N/A [facility] 01-22-2023 Functional Status [facility] 12-21-2022 Functional Status N/A [facility] 12-20-2022 Functional Status [facility] Clinical Notes 03-25-2022 to 01-20-2024 Patient InstructionsGeovani Mack MD - 10/21/2023 12:45 PM ESTPatient Alexis Mack MD - 09/16/2023 12:30 PM ESTPatient Alexis Mack MD - 04/06/2023 3:30 PM EDT Note Date & Type Note Facility 01-20-2024 Instructions ALBERTO Bashir - 01/20/2024 10:30 AM EDT Schedule in office loop recorder check with [employer] Rep on 04/20/[address] Mack. documented in this encounter [facility] Work Phone: 10-21-2023 History of Present illness Narrative CARDIOLOGY [...] Coronary artery disease Dementia (CMS/HCC) Diabetes mellitus ([facility]) GERD (gastroesophageal reflux disease) Hyperlipidemia Hypertension Orthostatic hypotension Seizures ([facility]) Syncope Social History Social History Tobacco Use [...] prepare this document. documented in this encounter [facility] Work Phone: 10-21-2023 Instructions Palak Aleman RN [...] Geovani Mack MD documented in this encounter [facility] Work Phone: 09-16-2023 History of Present illness Narrative CARDIOLOGY OFFICE VISIT CHIEF COMPLAINT Chief Complaint Patient presents with Follow-up 4 month [facility] HISTORY OF PRESENT ILLNESS HPI 67-year-old [...] prepare this document. documented in this encounter [facility] Work Phone: 09-16-2023 Instructions Emelia Noriega RN [...] GEOVANI MACK MD documented in this encounter [facility] Work Phone: 04-06-2023 Note Pre-procedure Verifi cation and Time Out: Pre-Procedure Verification and Time Out: Procedure Locationprocedure area HUDDLE - Pre-procedure Verificationcompleted TIME OUT - Final Verificationcompleted immediately prior to procedure start DEBRIEFcompleted General Information: Anesthesia Critical Care: Non-Anesthesia Date/Time of Procedure: 06-Apr-2023 17:46 Indication(s)/Pre Procedure Diagnoses: Syncope Post-Procedure Diagnosis: Syncope Procedure Name: Loop recorder implantation Findings: grossly normal anatomy Procedure performed by: tx Optician Apprentice Dispensing(s): none Estimated Blood Loss (mL): none Specimen: [...] of infection. The patient should call the special education supervisor immediately if symptoms recur, or for [...] settings (Medtronic Linq 2 MRI compatible RLB [id number]) Tolerance: good Complications: None Attestation: Note Completion: Attending AttestationI performed the procedure without a resident Electronic Signatures: Geovani Mack) (Signed 06-Apr-2023 17:47) Authored: Pre-procedure Verification and Time Out, General Information, Procedure Details, Note Completion Last Updated: 06-Apr-2023 17:47 by Geovani Mack) [facility] 04-06-2023 Note History & Physical R eviewed: [...] Last Updated: 06-Apr-2023 17:46 by Geovani Mack) [facility] 04-06-2023 History and physical note History & [...] Last Updated: 06-Apr-2023 17:46 by Geovani Mack) [facility] Work Phone: 04-06-2023 History and physical note [...] by Geovani Mack) documented in this encounter [facility] Work Phone: 02-14-2023 Note Admission and Discha rge Information Admitting Physician - Isaías FLEMING DO Consulting Physician - Dax LEMONS, Mahesh Johns Admitting Diagnoses: Discharge Order Date Discharge Patient - Ordered -- 02/14/23 11:55:00 EDT, discharge to SNF Discharge Diagnoses 1. Syncope, 02/13/2023 2. Seizure, 02/13/2023 3. Diabetes, 02/13/2023 4. CAD in [place] artery, 02/13/2023 5. A-fib, 02/13/2023 6. Diastolic heart failure, 02/13/2023 7. Hypertension, 02/13/2023 8. Hyperlipidemia, 02/13/2023 9. Dementia, 02/13/2023 10. Chronic GERD, 02/13/2023 11. Obesity, 02/13/2023 12. Chronic anemia, 02/13/2023 13. Peripheral neuropathy, 02/13/2023 Altered mental status, 02/13/2023 Seizure, 02/13/2023 Hospital Course 67-year-old male with past medical history of dementia, atrial fibrillation, suspected seizures from previous unresponsive episode on Keppra, CAD s/p stents on Plavix (received stents in [place] around 10 years ago per patient), chronic diastolic heart failure, hypertension, hyperlipidemia, chronic GERD, obesity, chronic anemia presented on 01/20/23 from senior living with syncope. Recurrent episodes of syncope. Recent EEG, 3D video EEG dobutamine stress echocardiogram, MRI brain, MRA head, carotid ultrasound unremarkable. Recently Coreg was switched to Cardizem. Gabapentin recently discontinued. CBC, BMP, LFTs, ammonia, troponin trend, U tox, ethanol level, UA, chest x-ray, CT head unremarkable. ECG with heart rate 40s. Heart rate 40?50s on telemetry. Donepezil, diltiazem due to sinus bradycardia. Heart rate went to 60s. Plavix discontinued by cardiology given frequent falls telemetry. Telemetry unremarkable overnight Orthostatics positive. Started on midodrine. Cortisol level around 9.4 in 01/2023. Cosyntropin stim test unremarkable on this dismission. Had long discussion with daughter at bedside regarding plan of care. On this hospitalization donepezil, diltiazem, Plavix discontinued. Midodrine started. Patient might need low-dose of antihypertensive at SNF if patient's supine blood pressure is high. Patient might benefit from tilt test in the future. At this time we will see how patient responds to medication adjustments. Also donepezil was started in 10/2022 and patient has been falling since 11/2022 so I am not sure if donepezil is the main culprit. Patient is discharged back to senior living in stable condition. Patient will follow-up with PCP, cardiology, neurology outpatient. Patient's daughter mentioned that patient has upcoming appoint with neurology and cardiology in next 4 weeks. Services Consulted Consult to Cardiology (Cardiology Consult) - Ordered -- 02/13/23 8:40:00 EDT, frequent syncope, bradycardia, Consult and Co-manage, [facility] Physical Exam Vitals & Measurements T: 36.4 ?C(Axillary) TMIN: 35.7 ?C(Axillary) TMAX: 36.5 ?C(Oral) HR: 67(Monitored) BP: 128/73 BP: 164/84(Standing) BP: 148/81(Supine) SpO2: 99% WT: 98.6 kg General: alert, NAD HEENT: eyes show no evidence of icterus Cardiovascular: regular rate and rhythm, no S3/S4 Respiratory: Lungs CTABL, respirations non labored Abdomen: soft, non-tender, positive bowel sounds, no organomegaly, no guarding, no rigidity Psych: cooperative Extremities: no peripheral edema Neurological: speech normal, motor strength equal & normal bilaterally Laboratory Results Alcohol Level (02/13/2023) Ethanol Lvl - <5 mg/dL Ammonia Level (02/13/2023) Ammonia - 18 mcmol Automated Diff (02/13/2023) Neutro Auto - 46.2 % Lymph Auto - 38.5 % [place] Auto - 7.2 % Eos Auto - 7.2 % Basophil Auto - 0.9 % Neutro Absolute - 2.7 E9/L Lymph Absolute - 2.3 E9/L [place] Absolute - 0.4 E9/L Eos Absolute - 0.4 E9/L Basophil Absolute - 0.1 E9/L Blood Gas Art, with Lytes, Gluc, Lact (02/13/2023) pH Arterial - 7.381 P CO2 Arterial - 45.9 mmHg P O2 Arterial - 74.6 mmHg Base Excess Arterial - 1.7 mmol/L HCO3 Arterial - 25.8 mmol/L Total Hgb Art - 10.7 gm/dL FO2Hb Art - 92.2 % FCOHb Art - 2.0 % FMetHb Art - 0.9 % O2 Sat Art - 95.0 % 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 operator+ Art - 140.0 mmol/L cK+ Art - 3.9 mmol/L cCa2+ Art - 4.95 mg/dL cCl- Art - 102.0 mmol/L cGlu Art - 127 mg/dL cLac Art - 0.4 mmol/L AaDO2 Art - 19.4 mmHg a/A Ratio Art - 79.30 % Sample Type - Arterial Draw Sample Site - R Radial FIO2 BG - 21 Allens Test - Positive1 Drawn by - tmj BMP (02/13/2023) Glucose Lvl - 128 mg/dL BUN - 41 mg/dL Creatinine - 1.2 mg/dL BUN/Creat Ratio - 34 Sodium Lvl - 136 mmol/L Potassium Lvl - 4.2 mmol/L Chloride - 102 mmol/L CO2 - 26 mmol/L AGAP - 12 mEq/L Calcium Lvl - 9.1 mg/dL Capillary Glucose POC (02/14/2023) Glucose Cap - 112 mg/dL POC Device SN - [id number] POC User ID - [id number] POC Username - JONH MOCTEZUMA CBC w/ Auto Diff (02/13/2023) WBC - 5.9 E9/L RBC - 4.1 E12/L Hgb - 11.6 gm/dL Hct - 35.4 % MCV - 85.9 fL MCH - 28.3 pg MCHC - 32.9 gm/dL RDW - 14.4 % Platelet - 195.0 E9/L MPV - 9.5 fL Cortisol (02/02 (more content not included)... [facility] Comment on above: Result Comment: Elec tronically Signed By: John Lyn MD\.br\Date and Time Signed: 02/14/23 12:47 EDT 02-14-2023 [...] Mahesh Lema MD Within 2 weeks [address] [place] [address] [phone] Additional Instructions: HERMILO THORNE MD Within 2 to 4 days [address] [place] [address]- Additional Instructions: Extracted from: Title:Consult Note Author:Mahesh [...] diabetes mellitus without complications) 4. CAD in [place] artery (I25.10: Atherosclerotic heart disease of [place] coronary artery without angina pectoris) 5. A-fib [...] s/p stents on Plavix (received stents in [place] around 10 years ago per patient), chronic diastolic heart failure, hypertension, hyperlipidemia, chronic GERD, obesity, chronic anemia presented on 01/20/23 from senior living with syncope. Syncope/unresponsiveness Bradycardia Frequent episodes of [...] made to ensure accuracy, however, inadvertently computerized model and mold maker plaster mistakes may be present. Extracted from: Title:ED [...] Scheduled Provider:Zia LEMONS, Jaja Dash Location[facility] [place] Appointment Type:Cardiology Follow Up (FT) [facility]05-12-2023 NoteChief Complaint pt arrives via ems after possible seizure while in bed at senior living. pt unresponsive to verbal\painful stimuli History of Present Illness 67-year-old male with past medical history of dementia, atrial fibrillation, suspected seizures from previous unresponsive episode on Keppra, CAD s/p stents on Plavix (received stents in [place] around 10 years ago per patient), chronic diastolic heart failure, hypertension, hyperlipidemia, chronic GERD, obesity, chronic anemia presented on 01/20/23 from senior living with syncope. Recurrent episodes of syncope. Patient was admitted at end of 12/2022 and there were talks about potential cardiac pacemaker but patient was discharged with Holter monitor and medicine adjustment. Atthat time there were concerns for questionable junctional rhythm. [facility] and patient was discharged on Holter monitor. Patient was then [facility] from 01/17/2023 - 01/20/2023 with syncope. EEG unremarkable. Neurology recommended continuing Keppra. Neurology unclear if this medication is necessary. Cardiology recommended discontinuation of anticoagulation due to frequent falls and apixaban was discontinued, continued on aspirin and Plavix. Per cardiology unclear if patient's syncope is orthostatic in nature or bradycardic in nature or some combination of both. Dobutamine stress echocardiogram 01/19 unremarkable. Home Coreg switched to Cardizem 30 mg 2 times daily for short acting heart rate control which would minimize blood pressure effects. Carotid ultrasound unremarkable 12/22/2022. Patient was discharged to SNF. Patient came back on 01/22 with an episode of unresponsiveness. Per nursing patient had multiple episodes of syncope over last few weeks as patient is a resident of [facility] and mostly patient was found on the floor during these episodes and this episode was the first time patient was witnessed prior to falling/unresponsiveness. Patient had 3-day video EEG which was unremarkable. Neurology was following the patient. Patient presented today from senior living with syncope/unresponsiveness again. Patient does not remember exactly what happened. Hydralazine patient tried reaching SNF but no one picked up the phone. We will try reaching significant to get more history. Patient is not complaining of any chest pain, palpitation, dizziness, shortness of breath, fever, chills, nausea, vomiting, diarrhea, abdominal pain, sore throat, nasal, sneezing, melena, hematochezia, dysuria, urinary urgency, focal motor weakness, numbness/tingling, dysphagia, aphasia, tinnitus, blurry vision. Review of Systems Constitutional: per HPI Respiratory: per HPI Cardiovascular: per HPI GI: per HPI : no dysuria, no increased urinary frequency Neuro/Behv: no LOC, no new focal deficits MSK: no stiffness Skin: no new rash Additional ROS info: Except as noted in the above Review of Systems and in the History of Present Illness all other systems have been reviewed and are negative or noncontributory Scoring Navarro Fall Risk Score: 45 (02/13/23) Physical Exam Vitals & Measurements T: 36.1 ?C(Oral) HR: 51(Monitored) RR: 20 BP: 123/75 SpO2: 100% HT: 185 cm WT: 94.3 kg General: alert, NAD HEENT: eyes show no evidence of icterus Cardiovascular: regular rate and rhythm, no S3/S4 Respiratory: Lungs CTABL, respirations non labored Abdomen: soft, non-tender, positive bowel sounds, no organomegaly, no guarding, no rigidity Psych: cooperative Extremities: no peripheral edema Neurological: speech normal, motor strength equal & normal bilaterally, sensation normal and symmetrical bilaterally, cranial nerves II to XII intact Lab Results WBC: 5.9 E9/L (02/13/23 01:14:00) RBC: 4.1 E12/L Low (02/13/23 01:14:00) HGB: 11.6 gm/dL Low (02/13/23:14:00) Hct: 35.4 % Low (02/13/23:14:00) MCV: 85.9 fL (02/13/23 01:14:00) MCH: 28.3 pg (02/13/23 01:14:00) MCHC: 32.9 gm/dL (02/13/23:14:00) RDW: 14.4 % High (02/13/23 01:14:00) Platelet: 195 E9/L (02/13/23 01:14:00) MPV: 9.5 fL (02/13/23 01:14:00) Neutro Auto: 46.2 % (02/13/23 01:20:00) Lymph Auto: 38.5 % (02/13/23 01:20:00) [place] Auto: 7.2 % (02/13/23 01:20:00) Eos Auto: 7.2 % (02/13/23 01:20:00) Basophil Auto: 0.9 % (02/13/23 01:20:00) Neutro Absolute: 2.7 E9/L (02/13/23 01:20:00) Lymph Absolute: 2.3 E9/L (02/13/23 01:20:00) [place] Absolute: 0.4 E9/L (02/13/23 01:20:00) Eos Absolute: 0.4 E9/L (02/13/23 01:20:00) Basophil Absolute: 0.1 E9/L (02/13/23 01:20:00) PT: 11.9 second(s) (02/13/23 01:14:00) INR: 1.1 (02/13/23 01:14:00) PTT: 31.8 second(s) (02/13/23 01:14:00) Glucose Lvl: 128 mg/dL (02/13/23 01:20:00) BUN: 41 mg/dL High (02/13/23 01:20:00) Creatinine: 1.2 mg/dL (02/13/23 01:20:00) eGFR: 65 mL/min/1.73 m2 (02/13/23 01:20:00) BUN/Creat Ratio: 34 High (02/13/23 01:20:00) Sodium Lvl: 136 mmol/L (02/13/23 01:20:00) Potassium Lvl: 4.2 mmol (more content not included)...[facility]Result Comment: Electronically Signed By: Eboni LEMONS, John White\.br\Date and Time Signed: 02/13/23 12:34 [id number] NotePT evaluation completed with an AM-PAC six clicks score of 17/. Pt. requires Min A for bed mobility and Min A x 2 for sit<>stand transfers. Pt. able to ambulate 6 ft. x 2 with constant CGA with short rest break between sets. No significant loss of balance or safety concerns noted at this time. Recommend SNF for further rehab upon discharge to improve LE strength and independence with functional mobility.[facility]05-12-2023 Hospital Discharge instructions Follow Up Care 02/13/2023 00:22:57 With:Mahesh Lema MD Address: [address] [place] [address] [phone] When:2 weeks With:MATI LEMONS, HERMILO Lewis Address: [address] [place] [address]- When:2 to [address] [facility]04-24-2023 Evaluation + Plan noteExtracted from: Title:Discharge Note Author:Stephan QUINN MD Date: 01/26/23 Discharge To, Anticipated II - Intermediate Care/ECF Discharged to - alf unit Transported by, Anticipated - Family Discharge [...] 1 to 2 weeks [address] [place] [address]- [phone] Business (1) Additional Instructions: HERMILO THORNE Within 3 to 5 days [address] [place] [address]- Business (1) Additional Instructions: Lg LEMONS, KAREN Hernandez Within 2 to 4 weeks [facility] [address] [place] [address]- Additional Instructions: Extracted from: Title:APSO Note- Neurology Author:Marycarmen hCávez RN Date:01/26/23 The patient is a 67-year-old [...] (I48.91: Unspecified atrial fibrillation) 3. CAD in [place] artery (I25.10: Atherosclerotic heart disease of [place] coronary artery without angina pectoris) 4. Dementia [...] (I48.91: Unspecified atrial fibrillation) 3. CAD in [place] artery (I25.10: Atherosclerotic heart disease of [place] coronary artery without angina pectoris) 4. Dementia [...] Extracted from: Title:APSO Note-neurology Author:Dinesh Rudd RN Date:01/24/23 The patient is a 67-year-old male [...] (I48.91: Unspecified atrial fibrillation) 3. CAD in [place] artery (I25.10: Atherosclerotic heart disease of [place] coronary artery without angina pectoris) 4. Dementia [...] Hyperlipidemia, unspecified) Extracted from: Title:Consult Note-neurology Author:Tobin GONZALEZ N ichole Date:01/23/23 The patient is a [...] (I48.91: Unspecified atrial fibrillation) 3. CAD in [place] artery (I25.10: Atherosclerotic heart disease of [place] coronary artery without angina pectoris) 4. Dementia [...] unspecified) Extracted from: Title:Admission H & P Author:Eboni LEMONS, John White Date:01/22/23 67-year-old male with past m edical history of dementia, atrial fibrillation, suspected seizures from previous unresponsive episode on Keppra, CAD s/p stents on Plavix (received stents in [place] around 10 years ago per patient), chronic diastolic heart failure, hypertension, hyperlipidemia, chronic GERD, obesity, chronic anemia presented on 01/20/23 from senior living with syncope. Syncope Concerns for seizures given history from senior living Patient mentioned he has chronic syncope for [...] made to ensure accuracy, however, inadvertently computerized model and mold maker plaster mistakes may be present. Dr. John Lyn [...] Date:04/02/2023 11:00:00 AM Scheduled Provider:Starr Oneal DO [facility] [place] Type:Cardiology Follow Up (FT) Diagnostic Tests Pending * Cortisol 01/26/[address] [facility]04-20-2023 Hospital Discharge instructions Follow Up Care 01/22/2023 00:29:48 With:Mahesh Lema Address: [address] [place] [address] [phone] Business (1) When:1 to 2 weeks With:HERMILO THORNE Address: [address] [place] [address]- Business (1) When:3 to 5 days With:Lilia Castanon MD, NEU Address: [facility] [address] [place] [address]- When:2 to [address] [facility]03-23-2023 Hospital Discharge instructions Patient Education 12/25/2022 12:28:46 Syncope, [id number] Syncope Syncope is when you pass out [...] pee (urine) pale yellow. General instructions Take [id number] and prescription medicines only as told by [...] right away. Call your local emergency services (211 in the [place] Do not drive yourself [...] 03/09/2009 Document Revised: 11/03/2018 Document Reviewed: 11/03/2018 [employer] Patient Education 2020 [employer]. Follow Up Care 12/20/2022 23:06:47 With:Call [phone] to schedule 30 event monitro placement. Address:Unknown When: Unknown With:Bushra JIMENEZ Address: [address] [place] [phone] Business (1) When:5 to 7 days With:HERMILO THORNE Address: [address] [place] [address] Business (1) When:2 to 4 days With:Lilia Castanon MD, NEU Address: [facility] [address] [place] [address]- When:2 to [address] [facility]03-22-2023 Evaluation + Plan noteExtracted from: Title:Progress/SOAP Note Author:Tiff JIMENEZ CNP Date:12/24/22 1. Unresponsive episode (R41 .89: Other symptoms and signs involving cognitive functions and awareness) 1. Unspecified atrial fibrillation, (I48.91: Unspecified atrial fibrillation)Atrial fibrillation with slow ventricular response Given history of atrial fibrillation, he should be anticoagulated given his high [id number] score. However, if he continues to have [...] discharge. He should follow-up with his primary operating theatre technician. 3. History of seizures (Z87.898: Personal history of other specified conditions) 4. Coronary artery disease (I25.10: Atherosclerotic heart disease of [place] coronary artery without angina pectoris) 5. Hypertension [...] echo shows EF 60% Obtain medication records-from [facility] pending. 3. History of seizures (Z87.898: Personal history of other specified conditions) Place on seizure precautions. Keppra 750 twice daily Will obtain records from his recent hospitalization at [facility] to determine prior work-up and further past medical history. EEG normal. 4. Cor onary artery disease (I25.10: Atherosclerotic heart disease of [place] coronary artery without angina pectoris) Patient did [...] the 50s Troponins negative Was seen by operating theatre technician who recommended to decrease Coreg to 3.125 [...] obtain records from his recent hospitalization at [facility] to determine prior work-up and further past medical history. EEG 4. Coronary artery disease (I25.10: Atherosclerotic heart disease of [place] coronary artery without angina pectoris) Patient did [...] artery disease (I25.10: Atherosclerotic heart disease of [place] coronary artery without angina pectoris) 5. Hypertension [...] to ensure accuracy , however, inadvertently computerized model and mold maker plaster mistakes may be present . Addendum by Nathaniel Moseley MD on December 23, 2022 01:03:20 EDT The [...] echo Observe on telemetry Obtain medication records-from [facility] pending. 3. History of seizures (Z87.898: Personal history of other specified conditions) Place on seizure precautions. Keppra 750 twice daily Will obtain records from his recent hospitalization at [facility] to determine prior work-up and further past medical history. EEG normal. 4. Cor onary artery disease (I25.10: Atherosclerotic heart disease of [place] coronary artery without angina pectoris) Patient did [...] artery disease (I25.10: Atherosclerotic heart disease of [place] coronary artery without angina pectoris) It is [...] trying to obtain old records from his operating theatre technician to determine if he still requires Plavix [...] 12 Lead Adult Extracted from: Title:APSO Note-neurology Author:Tobin GONZALEZ Dinesh anjali Date:12/22/22 Reason for consult: Unresponsive episode ASSESSMENT: [...] artery disease (I25.10: Atherosclerotic heart disease of [place] coronary artery without angina pectoris) 5. Hypertension [...] Extracted from: Title:Consult Note Author:Dax LEMONS, Mahesh Martniez te:12/21/22 1. Unresponsive episode (R41 .89: Other [...] to obtain. He cannot recall having a operating theatre technician and there is nothing in the computer [...] artery disease (I25.10: Atherosclerotic heart disease of [place] coronary artery without angina pectoris) 5. Hypertension [...] hospital for Episode of unresponsiveness at the [facility] due to possible seizure. I cannot exclude [...] artery disease (I25.10: Atherosclerotic heart disease of [place] coronary artery without angina pectoris) 5. Hypertension [...] functions and awareness) Patient was transferred from [facility] [place] [facility] was [facility] by the [facility] services ,CT imaging of the head and chest demonstrated no traumatic injury. Patient at present is responsive and is denying any localized pain. Patient was described as, both at the [facility] and at this facility, despite a sternal rub having no response. He became responsive when patient had an IO placed in his left proximal humerus to gain immediate access for institution of medications. His [place] Coma Scale increased from a 3 to an 11. Patient was not noted on presentation to be hypotensive nor hypoxic. Patient was not described as being hypotensive or hypoxic at the [facility] after being found at approximately 10 [...] bradycardic when he was unresponsive at the [facility] facility) will observe for any hemodynamically significant tachycardia. Will obtain further history both from the [facility] facility in regards to a similar event that occurred 3 days prior where he was reported to have been immediately responsive and her daughter showed up in the room. Ordered: Communication Order EEG 2. Atrial fibrillation with slow ventricular response (I48.91: Unspecified atrial fibrillation) External pharmacy report suggest patient is on carvedilol, await confirmation of meds from the [facility] facility. We will hold carvedilol or any other agents that have negative chronotropic effects. Observe on telemetry Ordered: TSH With T4fr Reflex 3. History of seizures (Z87.898: Personal history of other specified conditions) Place on seizure precautions. Continue Keppra. Will obtain records from his recent hospitalization at [facility] to determine prior work-up and further past medical history. Obtain in light of above an EEG Ordered: EEG 4. Coronary artery disease (I25.10: Atherosclerotic heart disease of [place] coronary artery without angina pectoris) Patient did have an abnormal EKG with interventricular conduction delay, T wave abnormalities in V3 through V6 but we have no prior tracings to compare. In light of above we will cycle cardiac enzymes, observe on telemetry and if patient remains hospitalized through Thursday consider an echocardiogram. Obtain records from [facility] which likely will include an ECG to determine baseline Ordered: Communication Order 5. Hypertension (I10: Essential (primary) hypertension) Await confirmation of medications from the [facility] facility and doses. We will avoid medications [...] diseases of the circulatory system) Per the [facility] facility while at [facility] last month. Will obtain records. It [...] until further records can be obtained from [facility]. Avoid nephrotoxins 10. Anemia (D64.9: Anemia, unspecified) Patient's hemoglobin of 11 is very similar to the last hemoglobin available at the [facility] from 24 October where it was [...] based on examination and succussion with the [facility] staff that he is at baseline 14. History of COVID-19 (Z86.16: Personal history of COVID-19) Obtain records from his recent hospitalization at [facility]. Patient is having no respiratory symptoms, [...] Left + Pelvis XR Shoulder Complete Left [facility] Evaluation note* Encounter Date Diagnosis Assessment [...] fracture: adult home care material was printed [facility] Other 06-21-2022 History of Present illness Narrative* 67-year-old male with a past medical history [...] software was utilized to prepare this document. -[facility] DO Work Phone: Chief complaint Narrative - ReportedPatient here for EP consultation per Dr. Lee due to [id number] DO Work Phone: Evaluation + Plan note Future Appointments Appointment Date:04/02/2023 11:00:00 AM Scheduled Provider:Starr Oneal DO Location[facility] Appointment [facility] Future Appointments Appointment Date:03/26/2023 10:15:00 AM Scheduled Provider:Jaja Lee MD Location[facility] Appointment Type:[facility] Future Appointments Appointment Date:06/25/2023 03:15:00 PM Scheduled Provider:Jaja Lee MD Location[facility] Appointment Type:[facility] assessment information available [facility] Work Phone: Evaluation note* Diagnosis Status post placement of implantable loop recorder Syncope and collapse documented in this encounter [facility] Work Phone: Evaluation note* Diagnosis Status post placement of implantable loop recorder Syncope and collapse documented in this encounter [facility] Work Phone: Evaluation note* Diagnosis Status post placement of implantable loop recorder Syncope and collapse documented in this encounter [facility] Work Phone: Evaluation note* Diagnosis Syncope and collapse documented in this encounter [facility] Work Phone: Evaluation note* Diagnosis Anticoagulation management encounter- Primary Encounter for therapeutic drug monitoring Abnormal EKG Nonspecific abnormal electrocardiogram (ECG) (EKG) Longstanding persistent atrial fibrillation (CMS/HCC) Primary hypertension Unspecified essential hypertension Palpitations Status post placement of implantable loop recorder BMI 34.0-34.9,adult Former smoker Personal history of tobacco use, presenting hazards to health documented in this encounter [facility] Work Phone: Evaluation note* Diagnosis Presence of other cardiac implants and grafts Syncope and collapse documented in this encounter [facility] Work Phone: Evaluation note* Diagnosis Status post placement of implantable loop recorder Syncope and collapse documented in this encounter [facility] Work Phone: [phone] note* Diagnosis Status post placement of implantable loop recorder Syncope and collapse documented in this encounter [facility] Work Phone: [phone] note* Diagnosis Abnormal EKG- Primary Nonspecific abnormal electrocardiogram (ECG) (EKG) Former smoker Personal history of tobacco use, presenting hazards to health Status post placement of implantable loop recorder Syncope and collapse Longstanding persistent atrial fibrillation ([facility]/HCC) Anticoagulation management encounter Encounter for therapeutic drug monitoring Palpitations BMI 30.0-30.9,adult High risk medication use Bradycardia Other specified cardiac dysrhythmias documented in this encounter [facility] Work Phone: [phone] note* Diagnosis Status post placement of implantable loop recorder documented in this encounter [facility] Work Phone: [phone] note* Diagnosis Status post placement of implantable loop recorder Syncope and collapse documented in this encounter [facility] Work Phone: [phone] note* Diagnosis Status post placement of implantable loop recorder Syncope and collapse documented in this encounter [facility] Work Phone: [phone] note* Diagnosis Status post placement of implantable loop recorder Syncope and collapse documented in this encounter [facility] Work Phone: [phone] note* Diagnosis Other cardiomyopathy (Multi)- Primary Paroxysmal atrial fibrillation (Multi) Atrial fibrillation Atherosclerosis of [place] coronary artery of [place] heart without angina pectoris Diastolic heart failure, unspecified HF chronicity (Multi) Mixed hyperlipidemia Primary hypertension Unspecified essential hypertension Peripheral vascular disease ([facility]-HCC) Unspecified peripheral vascular disease Stented coronary artery Postsurgical percutaneous transluminal coronary angioplasty status Typical atrial flutter (Multi) Bradycardia Other specified cardiac dysrhythmias Bullous pemphigoid (Multi) documented in this encounter [facility] Work Phone: History general Narrative - Reported* Type Description Date Medical History htn Medical History DM Medical History hypercholesterolemia Medical History staph infection Medical History h/o atrial fibrillation Surgical History left knee arthroscopy Surgical History KA Hospitalization History see above [facility] Other Hospital course Narrative No data available for this section [facility] No data available for this section [facility] No data available for this section [facility] Discharge Instructions * Instructions* Machelle Rosario, LISA - 09/10/2019 GENERAL POST-OPERATIVE PATIENT INSTRUCTIONS FOLLOW-UP: Please make an appointment with your physician in {NUMBER:[id number]} {TIME PERIOD:9075}. Call your physician immediately if [...] to call your physician or the hospital wharf operator if you have any questions, and they will be glad to assist you. documented in this encounter History of Present Illness * Kristyn Nevarez, PT - 09/10/2019 2:08 PM EST Physical Therapy Facility/Department: [address] ORTHO/MED SURG Initial Assessment NAME: Otilio [...] of left knee replacement, Hyperlipidemia, Hypertension, and LA (myocardial infarction) ([facility]). 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 Date of Admission: 09/06/2019 5:42 PM Length of stay during current admission: 3 Primary Care Physician: Bernie Guerra MD Code Status: Full Code Mode of physician to physician communication: [] Via telephone [x] In person Date and time of sign-out: 09/09/2019 2:36 PM Accepting Internal Medicine resident: Dr. aHnna Accepting Medicine team: IM Team Med 2 Accepting team's attending: Dr. Shawn Healy Patient's current ICU Bed: 115 Patient's assigned bed on floor: 238 [x] Med-Surg Monitored [] Step-down [] Psychiatry ICU [] Psych floor Reason for ICU admission: Necrotizing fascitis ICU course summary: Otilio Suarez is a 63 y.o. transfer from [facility] for concern of left leg abscess/ necrotizing faciitis. Patient states he noticed an abscess on his left leg last which has progressed. He says the pain became worse which prompted his ED visit. At [facility] his CT scan was remarkable for [...] Noted Necrotizing fasciitis (HCC) 09/07/2019 Septic shock ([facility]) 09/06/2019 Recommended Follow-up: NEURO: History of ETOH [...] DM2 with hyperglycemia Insulin drip discontinued on 12/5 Patient received lantus 10 units for bridging. [...] Cohen MD Internal Medicine Resident [facility] 09/09/2019 2:36 PM * Kathie Mckeon RN [...] Patient's name: Otilio Suarez Patient's account/billing number: [id number] Patient's Date of : 1955 Age: 63 [...] Laboratory findings: Complete Blood Count: Recent Labs 09/07/1945009/08/1942009/09/193 WBC 14.6* 9.6 8.6 HGB 11.6* 11.0* 11.7* HCT 34.4* 34.8* 34.8* PLT 131* 210 248 Last 3 Blood Glucose: Recent Labs 09/07/1945009/08/1942009/09/19 043 GLUCOSE 225* 111* 181* PT/INR: No results found for: PROTIME, INR PTT: No results found for: APTT, PTT Comprehensive Metabolic Profile: Recent Labs 09/06/19222009/07/1945009/08/1942009/09/19 043 NA 132* 132* 137 137 K 4.3 [...] PROPHYLAXIS: Stress ulcer: [] PPI Agent [] V9Dnets [] Sucralfate [x] Other:not indicated VTE: [] [...] resident, Department of Internal Medicine/ Critical care [facility], [facility]) 09/09/2019, 8:04 AM Associated attestation - Jeri Lion MD - 09/09/2019 7:19 PM EST Attending Physician Statement I have discussed the case of Otilio Suarez, including pertinent history and exam findings with the resident/fellow/BAROMETERS CALIBRATOR/PA. I have seen and examined the patient and the anderson elements of the encounter have been performed by me. I agree with the assessment, plan and orders as documented by the resident/fellow/BAROMETERS CALIBRATOR/PA With changes made to the note as [...] Villagomez OT - 09/08/2019 3:41 PM EST [facility] Occupational Therapy Not Seen Note DATE: 09/08/2019 Name: Otilio Suraez : 1955 Patient not available for Occupational [...] Patient's name: Otilio Suarez Patient's account/billing number: [id number] Patient's Date of : 1955 Age: 63 [...] PROPHYLAXIS: Stress ulcer: [] PPI Agent [] [id number] [] Sucralfate [x] Other:not indicated VTE: [] [...] trial:na Bowel management:milk of mag Indwelling catheter:d/c rivera, PIV 2 Trupti Cohen M.D. Critical care resident, Department of Internal Medicine/ Critical care [facility]) 09/08/2019, 12:20 PM Associated attestation - Jeri Lion MD - 09/08/2019 10:33 PM EST Attending Physician Statement I have discussed the case of Otilio Suarez, including pertinent history and exam findings with the resident/fellow/BAROMETERS CALIBRATOR/PA. I have seen and examined the patient and the anderson elements of the encounter have been performed by me. I agree with the assessment, plan and orders as documented by the resident/fellow/BAROMETERS CALIBRATOR/PA With changes made to the note as [...] Patient's name: Otilio Suarez Patient's account/billing number: [id number] Patient's Date of : 1955 Age: 63 [...] Date 09/07/19 0000 - 09/07/19 2359 Shift 9847-7103 4814-7738 3970-6428 24 Hour Total INTAKE P.O.(mL/kg/hr) 240(0.2) 240 [...] ABGs: No results found for: PHART, PH, XKQ5DJN, PCO2, PO2ART, PO2, LJY9JJO, HCO3, BEART, BE, THGBART, THB, YFS4QLD, X8HOZPWN, O2SAT, FIO2 Lactic Acid: Lab Results Component [...] No results for input(s): LABIRON, TIBC, FERRITIN, [id number], FOLATE, OCCULTBLD in the last 72 hours. [...] CRP 237.9 - Afebrile MSK/ ORTHO: n/a PT/OT/PROJ ENGINEER: - Evaluation and treatment when applicable DISPO: [...] 9. Ulcer prophylaxis []? PPI Agent []? W7Pwsak []? Sucralfate []? Other: 10. Glycemic control high dose sliding scale 11. Spontaneous breathing trial na 12. Bowel regimen/urine output adequate 13. Indwelling catheter/lines iv 14. De-escalation none Sanjay Reilly M.D. Department of Internal Medicine/ Critical care [facility], [facility]) 09/07/2019, 6:03 PM Associated attestation - Jeri Lion MD - 09/07/2019 7:07 PM EST Attending Physician Statement I have discussed the case of Otilio Suarez, including pertinent history and exam findings with the resident/fellow/BAROMETERS CALIBRATOR/PA. I have seen and examined the patient and the anderson elements of the encounter have been performed by me. I agree with the assessment, plan and orders as documented by the resident/fellow/BAROMETERS CALIBRATOR/PA With changes made to the note as [...] Type 2 Diabetes _x__ Be safe with [place] teaching sheet / [place] EPA Disposal of Household Generated Sharps _x__ [...] glycemic control. Start diet. * Benigno Crenshaw, [facility] - 09/06/2019 11:27 PM EST Pharmacy Note Vancomycin Consult Otilio Suarez is a 63 y.o. male started on Vancomycin for septic shock; consult received from Dr. Rocky Wray to manage therapy. Also receiving the following antibiotics: Levaquin/Cleocin. Patient Active Problem List Diagnosis Septic shock (HCC) Allergies: Pcn [penicillins] Temp max: 97.9 Recent Labs 09/06/19 222 BUN 34* Recent Labs 12/03/19 2221 CREATININE 1.22* Recent Labs 09/06/19 2221 WBC 14.3* Intake/Output Summary (Last 24 [...] Coronary atherosclerosis of unspecified type of vessel, [place] or graft History of alcohol abuse Nondependent [...] FoundDocuments on File Type Date Recorded 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 Advance Directives and Living Will Power of Gravity Prospecting Observer Helper Latest Code Status on File Code Status Date Activated Date Inactivated Comments Full Code 09/06/2019 5:58 PM Advance Directive Response Recorded Date/ Time Advance Directives No September 5:47pm Documents on File Type Date Recorded 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 Healthcare Power of Atty 04/06/2023 9:33 AM Healthcare Power of Atty 04/06/2023 Documents on File Type Date Recorded 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 Healthcare Power of Atty 04/06/2023 [...] Code Status Discussion Completed Decision Maker: Patient Date Activated Date Inactivated Comments 10/12/2023 11:45 AM Question Answer Comments Plan [...] Specialty Diagnoses / Procedures Referred By Kathy t Referred To Contact Cardiology Diagnoses Diastolic heart failure, unspecified HF chronicity (Multi) Other cardiomyopathy (Multi) Procedures Transthoracic Echo (TTE) Complete [place] ECHO TTHRC R-T 2D W/WOM-MODE COMPL SPEC&COLR D Maine Barraza E, AUTHORIZATION MANAGER-SOCIAL SERVICES COORDINATOR [address] [facility] [address] [place] [address] Referral ID Status Reason Start Date Expiration Date Visits Requested Visits Authorized [id number] Pending Review Perform Procedure 01/20/2024 01/19/2025 1 1 Specialty Diagnoses / Procedures Referred By Kathy t Referred To Contact Diagnoses Syncope and collapse Procedures ECG 12 Lead Geovani Mack MD [address] [facility], [address] [address] Referral ID Status Reason Start Date Expiration Date V isits Requested Visits Authorized [id number] Authorized 10/21/2023 10/20/2024 1 1 Specialty Diagnoses / Procedures Referred By Contac t Referred To Contact Cardiology Diagnoses Presence of other cardiac implants and grafts Syncope and collapse Procedures Cardiac device check - In Clinic Geovani Mack MD [address] [facility], [address] [address] Referral ID Status Reason Start Date Expiration Date Visits Requested Visits Authorized [id number] Pending Review Perform Procedure 06/24/2023 12/21/2023 1 1 Specialty Diagnoses / Procedures Referred By Contac t Referred To Contact Diagnoses Abnormal EKG Procedures ECG 12 Lead Geovani Mack MD [address] [facility], [address] [address] Referral ID Status Reason Start Date Expiration Date V isits Requested Visits Authorized [id number] Pending Review 09/16/2023 09/15/2024 1 1 Specialty Diagnoses / Procedures Referred By Contac t Referred To Contact Cardiology Diagnoses Status post placement of implantable loop recorder Procedures Cardiac Device Check - In Clinic Geovani Mack MD [address] [facility], [address] [address] Referral ID Status Reason Start Date Expiration Date Visits Requested Visits Authorized [id number] Pending Review Perform Procedure 3 09/15/2024 52 52 Specialty Diagnoses / Procedures Referred By Contac t Referred To Contact Cardiology Diagnoses Status post placement of implantable loop recorder Syncope and collapse Procedures Cardiac Device Check - Remote Geovani Mack MD [address] [facility], [address] [address] Referral ID Status Reason Start Date Expiration Date Visits Requested Visits Authorized [id number] Pending Review Perform Procedure 3 01/11/2024 52 52 Additional Source Comments Reason for Visit (unrecogniz ed section and content) Status Reason Specialty Diagnoses / Procedures Referre d By Contact Referred To Contact Diagnoses Septic shock (HCC) Septic Shock 2nd to Left Thigh abscess Jeri Lion MD [address] [facility] [address] [place] [address] [facility] Specialty Diagnoses / Procedures Referred By Kathy t Referred To Contact Cardiology Diagnoses Status post placement of implantable loop recorder Syncope and collapse Procedures Cardiac Device Check - Remote Geovani Mack MD [address] [facility], [address] [address] Referral ID Status Reason Start Date Expiration Date Visits Requested Visits Authorized [id number] Pending Review Perform Procedure 01/11/2024 52 52 Reason Comments Other [facility] M[facility] LOOP RECORD ER IMPLANT/ICD-10 Syncope and collapse Reason Comments Follow-up 4 month [facility] Specialty Diagnoses / Procedures Referred By Kathy farris Referred To Contact Cardiology Diagnoses Presence of other cardiac implants and grafts Syncope and collapse Procedures Cardiac device check - In Clinic Geovani Mack MD [address] [facility], [address] [address] Referral ID Status Reason Start Date Expiration Date Visits Requested Visits Authorized [id number] Pending Review Perform Procedure 06/24/2023 12/21/2023 1 1 Referral ID Status Reason Start Date Expiration Date V isits Requested Visits Authorized [id number] Closed Perform Procedure 07/15/2023 01/11/2024 52 52 Reason Comments Follow-up 4 weeks Specialty Diagnoses / Procedures Referred By Kathy t Referred To Contact Diagnoses Syncope and collapse Procedures ECG 12 Lead Geovani Mack MD [address] [facility], [address] [address] Referral ID Status Reason Start Date Expiration Date V isits Requested Visits Authorized [id number] Authorized 10/21/2023 10/20/2024 1 1 Specialty Diagnoses / Procedures Referred By Kathy t Referred To Contact Cardiology Diagnoses Status post placement of implantable loop recorder Procedures Cardiac Device Check - In Clinic Geovani Mack MD [address] [facility] Medical Office [facility], [address] [place] [address] Referral ID Status Reason Start Date Expiration Date Visits Requested Visits Authorized [id number] Pending Review Perform Procedure 3 09/15/2024 52 52 Specialty Diagnoses / Procedures Referred By Contac t Referred To Contact Cardiology Diagnoses Status post placement of implantable loop recorder Syncope and collapse Procedures Cardiac Device Check - Remote Geovani Mack MD [address] [facility] [address] [place] [address] Reason Comments Device Check (unrecognized sect ion and content) No Status Records FoundNo Status Records FoundNo Status Records FoundNo Status Records FoundNo Status Records FoundNo Status Records FoundNo Status Records FoundNo Status Records FoundNo Status Records FoundNo Status Records FoundNo Status Records Found INFORMATION SOURCE (unrecogn ized section and content) DATE CREATED AUTHOR 09/13/2019 [facility] DATE CREATED AUTHOR AUTHOR'S ORGANIZ ATION 10/04/2022 [facility] DATE CREATED AUTHOR AUTHOR'S ORGANIZ ATION 02/14/[address] [facility] DATE CREATED AUTHOR AUTHOR'S ORGANIZ ATION 03/25/2023 [employer] DATE CREATED AUTHOR AUTHOR'S ORGANIZ ATION 06/25/2023 [facility] DATE CREATED AUTHOR AUTHOR'S ORGANIZ ATION 10/17/2023 [facility] DATE CREATED AUTHOR AUTHOR'S ORGANIZ ATION 01/21/2024 [facility] DATE CREATED AUTHOR AUTHOR'S ORGANIZ ATION 01/22/2024 [facility] DATE CREATED AUTHOR AUTHOR'S ORGANIZ ATION 01/23/2024 [facility] DATE CREATED AUTHOR AUTHOR'S ORGANIZ ATION 02/06/2024 [facility] DATE CREATED AUTHOR AUTHOR'S ORGANIZ ATION 02/07/2024 [facility] Care Teams (unrecognized sec tion and content) Team Status: Inactive Member Role Status Dates Bernie Guerra MD Primary Care Provider Active Ana Norris APRN Attending Provider Active Team Status: Active Member Role Status Dates Bernie Guerra MD Primary Care Provider Active Steel Cutter Relationship Specialty Start Date End Date Hermilo Thorne MD [address] [place] [address] PCP - General 03/24/23 Steel Cutter Relationship Specialty Start Date End Date Hermilo Thorne MD [address] [place] [address] PCP - General 03/24/23 Steel Cutter Relationship Specialty Start Date End Date Hermilo Thorne MD [address] [place] [address] PCP - General 03/24/23 Steel Cutter Relationship Specialty Start Date End Date Hermilo Thorne MD [address] [place] [address] PCP - General 03/24/23 Steel Cutter Relationship Specialty Start Date End Date Hermilo Thorne MD [address] [place] [address] PCP - General 03/24/23 Steel Cutter Relationship Specialty Start Date End Date Hermilo Thorne MD [address] [place] [address] PCP - General 03/24/23 Geovani Mack MD [address] [facility] [address], [address] [place], [place] [id number] Consulting Physician Cardiology 09/16/23 Steel Cutter Relationship Specialty Start Date End Date Hermilo Thorne MD [address] [place] [address] PCP - General 03/24/23 Geovani Mack MD [address] [facility] [address], [address] [place] [address] Consulting Physician Cardiology 09/16/23 Steel Cutter Relationship Specialty Start Date End Date Hermilo Thorne MD [address] [place] [address] PCP - General 03/24/23 Geovani Mack MD [address] [facility], [address] [place] [address] Consulting Physician Cardiology 09/16/23 Steel Cutter Relationship Specialty Start Date End Date Hermilo Thorne MD [address] [place] [address] PCP - General 03/24/23 Geovani Mack MD [address] [facility], [address] [place] [address] Consulting Physician Cardiology 09/16/23 Nelda Jc, spreaderWeight Loss Counselor 10/15/23 Steel Cutter Relationship Specialty Start Date End Date Hermilo Thorne MD [address] [place] [address] PCP - General 03/24/23 Geovani Mack MD [address] [facility], [address] [place] [address] Consulting Physician Cardiology 09/16/23 Nelda Jc, spreaderWeight Loss Counselor 10/15/23 Steel Cutter Relationship Specialty Start Date End Date Bernie Guerra MD [address] [place] [address] PCP - General Pediatrics 03/16/23 Steel Cutter Relationship Specialty Start Date End Date Hermilo Thorne MD [address] [facility] [address] [place] [address] PCP - General 03/24/23 Geovani Mack MD [address] [facility] [place] [address] Consulting Physician Cardiology 09/16/23 Steel Cutter Relationship Specialty Start Date End Date Hermilo Thorne MD [address] [place] [address] [place] [address] PCP - General 03/24/23 Geovani Mack MD [address] [facility] [address] [place] [address] Consulting Physician Cardiology 09/16/23 Steel Cutter Relationship Specialty Start Date End Date Hermilo Thorne MD [address] [facility] [address] [place] [address] PCP - General 03/24/23 Geovani Mack MD [address] [facility] [address] [place] [address] Consulting Physician Cardiology 09/16/23 Steel Cutter Relationship Specialty Start Date End Date Hermilo Thorne MD [address] [facility] [address] [place] [address] PCP - General 03/24/23 Geovani Mack MD [address] [facility] [address] [place] [address] Consulting Physician Cardiology 09/16/23 Steel Cutter Relationship Specialty Start Date End Date Hermilo Thorne MD [address] [facility] [address] [place] [address] PCP - General 03/24/23 Geovani Mack MD [address] [facility] [address] [place] [address] Consulting Physician Cardiology 09/16/23 Maine Barraza, [employer] COORDINATOR [address] [facility] [address], [address] [place], [place] [id number] Nurse Practitioner Cardiology 01/20/24 Goals (unrecognized section and content) Goals may [...] BE BASED ON THE PRIMARY CLINICAL RECORDS. [email or web address] provides no warranty or guarantee of the accuracy or completeness of information in this document.
[2024-02-10 08:43] LABS: Anion Gap 9.6; Calcium 9.1 mg/dL (8.5-10.1); Carbon Dioxide 31.2 mmol/L (21.0-32.0); Chloride 104 mmol/L (98-107); Estimated GFR (African America >60 (>=60); Estimated GFR (Non-African Ame >60 (>=60); Glucose 121 mg/dL (74-106); Potassium 3.8 mmol/L (3.5-5.1); Sodium 141 mmol/L (136-145)
== END 2024-02-10 02:33 | disposition home or self-care (01) ==
LOC: LAB 02:32
PROVIDERS: PCP Family Medicine; Visit Provider Family Medicine
DX: R60.0 Localized edema (principal)
CPT/HCPCS: 36415; 80048

== ENCOUNTER 2024-04-13 10:23 | Outpatient (OUT) | payer MEDICARE, MEDICAID, SELFPAY ==
[2024-04-13 11:06] LABS: Estimated Average Glucose 180 mg/dL; Glycohemoglobin A1C 7.9 % (4.5-6.2)
== END 2024-04-13 10:24 | disposition home or self-care (01) ==
PROVIDERS: PCP Family Medicine; Visit Provider Family Medicine
DX: E11.9 Type 2 diabetes mellitus without complications (principal)
CPT/HCPCS: 36415; 83036

== ENCOUNTER 2024-07-13 02:08 | Outpatient (RCR) | payer MEDICARE, MEDICAID, SELFPAY | END 2024-10-04 23:59 | disposition home or self-care (01) | LOC: LAB 02:08 | PROVIDERS: PCP Family Medicine; Visit Provider Family Medicine | DX: E11.9 Type 2 diabetes mellitus without complications (principal) | CPT/HCPCS: 83036 ==